=== PATIENT | female | born 1970 | race Caucasian/White ===

== ENCOUNTER 2023-08-05 12:00 | Emergency (ER) | payer BC, SELFPAY ==
[2023-08-05 12:01] VITALS: BP 116/71; PULSE 110; RESP 18; TEMP 36.4; O2SAT 98; BMI 28.0
--- NOTE | 2023-08-05 12:10 | ED.VIS.FALL ---
HPI HPI - Fall History of Present Illness Chief Complaint: Fall Detail of Chief Complaint: Fall with injury to left ribs and left arm Informant: patient Narrative Narrative: Patient presents emergency department after sustaining a fall 2 days ago. Patient states that she was coming out of door and missed a step fell onto the concrete. She landed on her left side and left arm. She denies loss of consciousness. She has been ambulatory. She denies neck pain. She is not anticoagulated. She is visiting here from [place]. [facility] Medical History (Updated 08/05/23 @ 13:[address] China Kumar, ) Sarcoidosis Home Medications escitalopram oxalate 20 mg tablet (Lexapro) 20 mg PO DAILY 01/28/13 [History Last Taken Unknown] buspirone 10 mg tablet 10 mg PO TID 07/19/13 [History Last Taken Unknown] quetiapine 300 mg tablet (Seroquel) 600 mg PO DAILY 07/19/13 [History Last Taken Unknown] docusate sodium 100 mg capsule (DOK) 100 mg PO BID ##30 10/30/13 [Rx Last Taken Unknown] hydrocodone-acetaminophen 5-325mg 5mg-325mg 1 tab PO Q4H PRN PRN Pain 3 days #15 TABLETS 08/05/23 [Rx Last Taken Unknown] Allergy/AdvReac Type Severity Reaction Status Date / Time aspirin AdvReac Other Verified 08/05/23 12:00 pseudoephedrine HCl AdvReac Other Verified 08/05/23 12:00 [From [facility]] Social History Smoking Status: Current every day smoker tobacco type: cigarettes ROS ROS ED Review of Systems ROS Unobtainable: other Constitutional Constitutional ED: Reports lethargy; Denies chills, fever(s), sweats or weight loss Eyes Eyes: Denies blurry vision, change in vision or diplopia ENT ENT ED: Denies rhinorrhea or sore throat Cardiovascular Cardiovascular: Reports chest pain; Denies orthopnea or racing heartbeat Respiratory/Chest Respiratory/Chest: Denies cough, dyspnea, dyspnea on exertion, orthopnea or sputum Gastrointestinal Gastrointestinal: Denies abdominal pain, diarrhea, nausea or vomiting Genitourinary Genitourinary ED: Denies dysuria, hematuria or urinary frequency Musculoskeletal Musculoskeletal: Reports other Details: Left arm pain ; Denies arthralgias, back pain, myalgias or neck pain Integumentary Denies abscess, Abrasions or rash Neurologic Neurologic: Denies headache(s) or weakness Psychiatric Psychiatric: Denies anxiety, depression or suicidal thoughts Endocrine Endocrinology: Denies polydipsia, polyphagia or polyuria Hematologic/Lymphatic Hematologic/Lymphatic: Denies easy bleeding, easy bruising or lymphadenopathy Allergic/Immunologic Allergic/Immunologic ED: Denies mouth swelling, tongue swelling or urticaria EXAM Physical Exam Const Vital Signs: 08/05/23 12:01 08/05/23 12:55 08/05/23 13:56 Temperature 97.6 F L 97.9 F Temperature Source Temporal Pulse Rate 110 H 78 Respiratory Rate 18 18 Respiratory Effort Normal Respiratory Depth Normal Respiratory Pattern Normal Blood Pressure 116/71 118/69 Blood Pressure Mean 86 85 Pulse Ox 98 91 95 Oxygen Delivery Method Room Air Room Air Positive well nourished and well developed General Appearance ED: well developed and NAD HEENT Reports TM's clear and moist mucous membranes normocephalic and atraumatic; Negative for trauma or tenderness Tympanic Membrane ED: Yes TM's clear Eyes PERRL and EOMs intact bilaterally General Eye ED: Negative for pale conjunctiva or scleral icterus Neck no lymphadenopathy, supple and no JVD General: Negative for tenderness Chest Wall Negative for inspection of chest normal or palpation of chest normal Chest Narrative: Evaluation of the chest wall reveals diffuse tenderness palpation over the left ribs in the mid axillary line. There is no crepitus or subcu emphysema. No ecchymosis or bruising noted. Chest: Negative for tenderness Resp normal respiratory effort and clear to auscultation bilaterally Effort and Inspection: Negative for respiratory distress or pain with movement Auscultation: Negative for rhonchi, wheezes or diminished lung sounds Cardio regular rate, regular rhythm, S1 normal heart sound, S2 normal heart sound and no murmurs Peripheral Pulses: pulses 2+ throughout GI normal to inspection, nondistended, normoactive bowel sounds, soft to palpation, non-tender, non-distended and no masses Back/Spine no CVA tenderness and no thoracic nor lumbar tenderness Extremity normal to inspection Extremity Narrative: Tenderness palpation over the left humerus does reveal diffuse tenderness. There is no obvious deformity. There is ecchymosis and bruising to the proximal portion of the left humerus. She is neurovascular intact distally. No pain at the elbow or wrist. General Extremety ED: Negative for edema General Extremity: Negative for edema Neuro oriented x3, CN's II-XII intact bilaterally, no sensory deficits noted and gait normal Sensorium / Orientation: awake, alert, oriented to person, oriented to place and oriented to time Motor Exam: strength 5/5 throughout and strength abnormal Psych mental status grossly normal Skin no rashes or lesions noted and no wounds MDM MDM MDM Narrative Medical decision making narrative: Patient presents to the emergency department with a fall with injury to her left ribs. She has tenderness over the ribs and ecchymosis and bruising over the left upper arm. She had x-rays of the left upper arm that showed no fractures. Also performed x-rays of her left ribs and chest x-ray which showed nondisplaced rib fractures of the fourth and fifth rib. There is no evidence of pneumothorax. She was medicated with morphine and Zofran. Discussed results with patient. Will write her prescription for [employer] for pain. Will give referral to primary care physician for follow-up. She is advised to return if worsening pain, increasing shortness of breath, hemoptysis, or condition should worsen anyway. Radiography Diagnostic Testing: Clinical Impression(s) from Imaging Studies Humerus X-Ray 08/05/23 12:20 IMPRESSION: Normal x-ray examination of the humerus. Electronically Signed: Elian Johnson MD at 13:13 EDT , Ribs w/Chest X-Ray 08/05/23 12:20 IMPRESSION: RIBS: Nondisplaced fracture involving the anterior lateral aspect of the left fourth and fifth ribs. CHEST: Normal x-ray examination of the chest. Electronically Signed: Elian Johnosn MD at 13:12 EDT , Three-view x-rays of left ribs and chest x-ray obtained interpreted by myself as questionable fracture of the fourth rib. Radiology felt there was nondisplaced fractures of the left fourth and fifth ribs. There is no evidence of pneumothorax. 2 view x-rays of left humerus obtained interpreted by myself as no evidence of fracture. Radiology in agreement. Discharge Plan Triage Chief Complaint: Fall ED Provider: China Kumar Dx/Rx/DC Orders Clinical Impression: Left rib fracture, Contusion of arm, left Instructions: Bone Contusion, ED Mechanical Fall, ED Rib Fracture Prescriptions: New hydrocodone-acetaminophen [hydrocodone-acetaminophen] 5-325 mg tablet 1 tab PO Q4H PRN PRN (Reason: Pain) 3 Days Qty: 15 0RF No Action escitalopram oxalate [Lexapro] 20 MG tablet 20 mg PO DAILY quetiapine [Seroquel] 300 MG tablet 600 mg PO DAILY buspirone 10 MG tablet 10 mg PO TID docusate sodium [DOK] 100 MG capsule 100 mg PO BID Qty: 30 0RF Primary Care Provider: JP PENA Referrals: JP PENA [Other] Mike Wray MD [Med Staff - Active Staff] - 5-7 Days Disposition Disposition: Home, Self Care Discharge Date/Time: 08/05/23 13:57
--- NOTE | 2023-08-05 12:20 | RAD_ITS ---
STUDY: X-RAY - UNILATERAL RIBS ( LEFT ) WITH CHEST REASON FOR EXAM: Female, 52 years old. Left rib pain following a fall. TECHNIQUE - RIBS: 5 view(s) of the ribs. TECHNIQUE - CHEST: Single PA view of the chest. COMPARISON: Comparison is made with prior chest radiograph dated November 29, 2012. FINDINGS - RIBS: There is a nondisplaced fracture along the anterior lateral aspect of the left fourth and fifth ribs. FINDINGS - CHEST: Elevation of the right hemidiaphragm. There is no demonstrated pleural abnormality. Normal size heart. Normal mediastinum and rosibel. Normal visualized pulmonary arteries. There is atherosclerotic tortuosity of the aortic arch and descending thoracic aorta. There are diffuse degenerative changes of the visualized thoracic spine. Normal visualized ribs, clavicles, and shoulders. Status post cholecystectomy. RAD/Ribs Uni Min 3V w/PA Chest IMPRESSION: RIBS: Nondisplaced fracture involving the anterior lateral aspect of the left fourth and fifth ribs. CHEST: Normal x-ray examination of the chest. Electronically Signed: Elian Johnson MD at 13:12 EDT ,
--- NOTE | 2023-08-05 12:20 | RAD_ITS ---
STUDY: X-RAY - LEFT HUMERUS REASON FOR EXAM: Female, 52 years old. Fall TECHNIQUE: 3 view(s) of the humerus. COMPARISON: None. FINDINGS: Normal visualized humerus. There is no demonstrated fracture or osseous destructive process. There is no demonstrated soft tissue abnormality. RAD/Humerus min 2 Views IMPRESSION: Normal x-ray examination of the humerus. Electronically Signed: Elian Johnson MD at 13:13 EDT ,
[2023-08-05 12:55] VITALS: O2SAT 91
[2023-08-05] MEDS: Ondansetron 4 MG/2 ML Vial IV (13:03)
[2023-08-05] MEDS: Morphine 4 MG/ML Syringe IM (13:03)
[2023-08-05 13:56] VITALS: BP 118/69; PULSE 78; RESP 18; TEMP 36.6; O2SAT 95
== END 2023-08-05 13:57 | disposition home or self-care (01) ==
PROVIDERS: Emergency Provider Emergency Medicine; Visit Provider Emergency Medicine
DX: S22.42XA Multiple fractures of ribs, left side, initial encounter for closed fracture (principal); F17.210 Nicotine dependence, cigarettes, uncomplicated; S40.022A Contusion of left upper arm, initial encounter; W10.9XXA Fall (on) (from) unspecified stairs and steps, initial encounter
CPT/HCPCS: 71101; 73060; 96372; 96374; 99282; J2405

== ENCOUNTER 2023-09-25 22:15 | Emergency (ER) | payer MEDICARE, MEDICAID, SELFPAY ==
[2023-09-25 22:20] VITALS: BP 134/84; PULSE 112; RESP 17; TEMP 36.6; O2SAT 98; BMI 25.6
== END 2023-09-26 01:02 | disposition left against medical advice (07) ==
DX: R11.0 Nausea (principal); Z53.21 Procedure and treatment not carried out due to patient leaving prior to being seen by health care provider

== ENCOUNTER 2023-11-03 23:26 | Emergency (ER) | payer MEDICARE, SELFPAY ==
[2023-11-03 23:27] VITALS: BP 112/98; PULSE 110; RESP 18; TEMP 36.6; O2SAT 96; BMI 27.9
[2023-11-04 01:27] VITALS: BP 153/64; PULSE 99; RESP 18; O2SAT 99
--- NOTE | 2023-11-04 02:33 | EX.ED.DYSGE1 ---
HPI History of Present Illness Chief Complaint: General Illness Informant: patient Onset/Context/Timing Onset: Today Context: Gradual Onset Timing: Continuous Quality: Stinging Location: Left abdomen Worsened by: Movement Relieved by: Nothing Narrative Narrative: Patient presents with left side pain that began today. Patient states he noticed it when she woke up today. Patient describes it as a stinging sensation. Patient states it is over the left side of her abdomen. Patient states it is worse with movement. Patient states nothing seems to help with it. Patient admits to some subjective chills but denies any fevers. Patient admits to a mild cough. Patient also admits to a headache. Patient denies any discharge or drainage from the area. Patient noted some redness to the left side of her abdomen. Patient states the redness is getting bigger. [facility] Medical History (Updated 11/04/23 @ 03:[address] Joe Davidson DO) Hypertension Neuropathy Diabetes Sarcoidosis Home Medications ?Medication ?Instructions ?Recorded ?Last Taken ?Type escitalopram oxalate 20 mg tablet 20 mg PO DAILY 01/28/13 Unknown History (Lexapro) buspirone 10 mg tablet 10 mg PO TID 07/19/13 Unknown History quetiapine 300 mg tablet (Seroquel) 600 mg PO DAILY 07/19/13 Unknown History docusate sodium 100 mg capsule 100 mg PO BID ##30 10/30/13 Unknown Rx (DOK) hydrocodone-acetaminophen 5-325mg 1 tab PO Q4H PRN PRN Pain 3 days 08/05/23 Unknown Rx 5mg-325mg #15 TABLETS cephalexin 500 mg capsule 500 mg PO Q6 #40 CAPSULES 11/04/23 Unknown Rx Allergy/AdvReac Type Severity Reaction Status Date / Time aspirin AdvReac Other Verified 11/03/23 23:30 hydromorphone (From Dilaudid) AdvReac Other Verified 11/03/23 23:30 pseudoephedrine HCl (From AdvReac Other Verified 11/03/23 23:30 Sudafed) Surgical History (Updated 11/04/23 @ 02:[address] Joe Davidson DO) Hx of brain surgery Hx of appendectomy Hx of section Hx of total adrenalectomy Social History Smoking Status: Current every day smoker tobacco type: cigarettes ROS ROS ED Constitutional Constitutional ED: Reports chills; Denies fever(s) Eyes Eyes: Denies blurry vision or change in vision ENT ENT ED: Denies rhinorrhea or sore throat Cardiovascular Cardiovascular: Denies chest pain or palpitations Respiratory/Chest Respiratory/Chest: Reports cough; Denies dyspnea Gastrointestinal Gastrointestinal: Denies nausea or vomiting Genitourinary Genitourinary ED: Denies dysuria or hematuria Musculoskeletal Musculoskeletal: Denies back pain or neck pain Integumentary Reports rash; Denies abscess Neurologic Neurologic: Reports headache(s); Denies weakness Allergic/Immunologic Allergic/Immunologic ED: Denies mouth swelling or urticaria EXAM Physical Exam Const Vital Signs: 11/03/23 23:27 11/04/23 00:47 11/04/23 01:27 Temperature 97.9 F Temperature Source Temporal Pulse Rate 110 H 99 Respiratory Rate 18 18 Respiratory Effort Normal Blood Pressure 112/98 H 153/64 H Blood Pressure Mean 102 93 Pulse Ox 96 99 Oxygen Delivery Method Room Air Room Air 11/04/23 03:00 Temperature Temperature Source Pulse Rate 98 Respiratory Rate 21 H Respiratory Effort Blood Pressure 185/62 H Blood Pressure Mean 103 Pulse Ox 92 Oxygen Delivery Method Room Air Positive well nourished and well developed General Appearance ED: well developed and NAD HEENT Reports moist mucous membranes Neck supple and no JVD Resp normal respiratory effort and clear to auscultation bilaterally Cardio regular rate and regular rhythm GI non-distended GI Narrative: There is tenderness, erythema, and mild warmth over the left mid abdomen. There is some induration noted. There is no fluctuance. There is no evidence of any abscess. There is no discharge or drainage noted. Palpation: soft Extremity normal to inspection General Extremety ED: Negative for edema General Extremity: Negative for edema Neuro oriented x3, CN's II-XII intact bilaterally and no sensory deficits noted Sensorium / Orientation: alert Motor Exam: strength 5/5 throughout Psych mental status grossly normal Skin Skin Narrative: There is a superficial abrasion over the left mid abdomen near the area of erythema. There is no fluctuance. There are no pustules noted. There is no bleeding or drainage. MDM MDM MDM Narrative Medical decision making narrative: Patient was advised that this appears to be cellulitis. I do not feel any fluctuance consistent with an abscess that needs to be opened and drained at this time. CBC will be obtained to assess for leukocytosis and anemia. Basic metabolic profile will be obtained to assess for electrolyte abnormality and renal function. Lab Data Attestation: I reviewed the patient's lab results. Lab results narrative: CBC was reviewed. Hemoglobin was slightly elevated at 15.9 and hematocrit was 47.5. The remainder is within normal limits. Basic metabolic profile was reviewed. Glucose was mildly elevated at 313. Potassium was slightly low at 3.2. The remainder was essentially within normal limits. Labs: Laboratory Results - last 24 hr 11/04/23 02:50 WBC 9.1 RBC 5.35 Hgb 15.9 H Hct 47.5 H MCV 88.8 MCH 29.7 MCHC 33.5 RDW Std Deviation 42.2 RDW Coeff of Cele 13.1 Plt Count 207 MPV 10.9 Immature Gran % (Auto) 0.800 Neut % (Auto) 73.4 H Lymph % (Auto) 14.0 L [place] % (Auto) 10.9 H Eos % (Auto) 0.5 Baso % (Auto) 0.4 Absolute Neuts (auto) 6.7 Absolute Lymphs (auto) 1.28 Nucleated RBC % 0 Treatment and Re-Evaluation :: Patient was given a dose of Ancef here. Patient was advised of her findings. Patient was given a prescription for Keflex. Patient was instructed to use Tylenol or ibuprofen as needed for pain. Patient was instructed to follow-up with her primary care physician in 5 to 7 days. Patient understood and was agreeable with plan. All questions were answered. Discharge Plan Triage Chief Complaint: General Illness ED Provider: Joe Davidson Dx/Rx/DC Orders Clinical Impression: Cellulitis, Type II diabetes mellitus, Tobacco dependence syndrome Instructions: ED Cellulitis Prescriptions: New cephalexin 500 mg capsule 500 mg PO Q6 Qty: 40 0RF No Action escitalopram oxalate [Lexapro] 20 MG tablet 20 mg PO DAILY quetiapine [Seroquel] 300 MG tablet 600 mg PO DAILY buspirone 10 MG tablet 10 mg PO TID docusate sodium [DOK] 100 MG capsule 100 mg PO BID Qty: 30 0RF hydrocodone-acetaminophen [hydrocodone-acetaminophen] 5-325 mg tablet 1 tab PO Q4H PRN PRN (Reason: Pain) 3 Days Qty: 15 0RF Primary Care Provider: [facility] Doctor,Out of Referrals: [facility] Doctor,Out of [Primary Care Provider] - 3-5 Days Print Language: Polish Disposition Disposition: Home, Self Care
[2023-11-04] MEDS: Ketorolac 30 MG/ML Syringe IV (02:51)
[2023-11-04 03:00] VITALS: BP 185/62; PULSE 98; RESP 21; O2SAT 92
[2023-11-04 03:07] LABS: Absolute Lymphocyte Count 1.28 X10^3/uL (0.83-4.51); Absolute Neutrophil Count 6.7 X10^3/uL (2.0-7.7); Basophil# 0.04 X10^3/uL; Basophil% 0.4 % (0-1); Eosinophil# 0.05 X10^3/uL; Eosinophils% 0.5 % (0-5); Hematocrit 47.5 % (37-47); Hemoglobin 15.9 g/dL (12.0-15.0); Lymphocyte # 1.28 X10^3/ul (0.83-4.51); Mean Corp Hgb Conc 33.5 g/dL (32-36); Mean Corpuscular Hgb 29.7 pg (27.0-32.0); Mean Corpuscular Volume 88.8 fL (81-99); Mean Platelet Vol. 10.9 fl (6.2-12.0); Monocyte% 10.9 % (0-10); NRBC Flagged by Analyzer 0 % (0-5); Neutrophil % 73.4 % (47-70); Platelet Count 207 K/mm3 (150-450); RBC Distribution Width CV 13.1 % (11.6-14.6); RBC Distribution Width SD 42.2 fl (35.1-43.9); Red Blood Count 5.35 M/mm3 (4.2-5.4); White Blood Count 9.1 K/mm3 (4.4-11.0)
[2023-11-04] MEDS: Cefazolin 1 GM/50 ML BAG IV (03:10)
[2023-11-04 03:56] LABS: Anion Gap 8 (5-15); BUN 7 mg/dL (7-18); BUN/Creat Ratio 16.4 RATIO (10-20); Chloride 101 mmol/L (98-107); Creatinine, Serum 0.43 mg/dL (0.55-1.02); EST Glomerular Filtration Rate 165 mL/min (>60); Est Glom Filt Rate - Afr Amer 199 mL/min (>60); Estimated Creatinine Clearance 154.52 ml/min; Glucose 313 mg/dL (74-106); Potassium 3.2 mmol/L (3.5-5.1); Sodium Level 137 mmol/L (136-145)
[2023-11-04 04:04] VITALS: BP 109/54; PULSE 98; RESP 18; TEMP 36.3; O2SAT 98
== END 2023-11-04 04:06 | disposition home or self-care (01) ==
PROVIDERS: Emergency Provider Emergency Medicine; Visit Provider Emergency Medicine
DX: L03.311 Cellulitis of abdominal wall (principal); E11.40 Type 2 diabetes mellitus with diabetic neuropathy, unspecified; I10 Essential (primary) hypertension; R51.9 Headache, unspecified; F17.210 Nicotine dependence, cigarettes, uncomplicated
CPT/HCPCS: 80048; 85025; 96365; 96375; 99285; J7050; A4216

== ENCOUNTER 2023-11-11 07:05 | Inpatient (IN) | payer MEDICARE, MEDICAID, SELFPAY ==
[2023-11-11] VITALS (10 sets, daily range): BP systolic 100–140; BP diastolic 41–83; PULSE 70–107; RESP 14–18; TEMP 36.6–38.3; O2SAT 93–98; BMI 24.0
--- NOTE | 2023-11-11 07:19 | EDS_ITS ---
HPI History of Present Illness Chief Complaint: Abscess Narrative Narrative: Patient is a 53-year-old female with a past medical history of hypertension, diabetes, sarcoidosis, neuropathy who presented to the emergency department with a chief complaint of concern for left-sided abscess. Patient states that she was here approximately 2 to 3 weeks ago now for this and states that she took an antibiotic however notes that things or not improving she states that she is having increasing pain and notes that the last time this happened for her she had to go to the operating room for surgery. Patient states that she has been having chills but denies any fevers. She rates her pain an 8 out of 10 here on exam today. [facility] Medical History Hypertension Neuropathy Diabetes Sarcoidosis Home Medications ?Medication ?Instructions ?Recorded ?Last Taken ?Type buspirone 10 mg tablet 10 mg PO TID 07/19/13 Unknown History cephalexin 500 mg capsule 500 mg PO Q6 #40 CAPSULES 11/04/23 11/10/23 Rx Allergy/AdvReac Type Severity Reaction Status Date / Time aspirin AdvReac Other Verified 11/11/23 07:14 hydromorphone (From Dilaudid) AdvReac Other Verified 11/11/23 07:14 pseudoephedrine HCl (From AdvReac Other Verified 11/11/23 07:14 Sudafed) Surgical History Hx of brain surgery Hx of appendectomy Hx of section Hx of total adrenalectomy Social History Smoking Status: Current every day smoker tobacco type: cigarettes ROS ROS ED ROS Narrative Constitutional: Complains of chills as noted above denies fevers, headaches, lightheadedness, dizziness Cardiovascular: Denies chest pain or palpitations Respiratory: Denies cough wheezing shortness of breath Abdomen: Complains of abdominal discomfort and concern for left-sided abscess as noted above complains of diarrhea and nausea denies vomiting : Denies any pain drainage, hematuria, polyuria Neurological: Denies any new numbness, weakness, tingling Skin: Complains of concern for abscess as noted above EXAM Physical Exam Narrative Exam Narrative: General: Patient was lying in bed did appear to be uncomfortable secondary to her left-sided pain Head: Atraumatic, normocephalic Eyes: Pupils equal round reactive to light bilaterally, extraocular muscles intact bilaterally, no conjunctival injection noted Neck: Soft, supple, trachea midline Cardiovascular: Patient was tachycardic with a regular rhythm no murmurs gallops rubs noted Respiratory: Clear to auscultation bilaterally Abdomen: Diffuse tenderness to palpation no rebound or guarding on exam Extremities: +5/5 strength noted in the bilateral upper and lower extremities, no pedal edema on exam Neurological: Patient following commands knew that she is at [facility] the year is 2023 Skin: Warm, dry, patient does have a left-sided area of redness with some induration noted. The wound does appear to be open and draining somewhat at this point in time. Area is tender to palpation and warm to the touch Const Vital Signs: 11/11/23 07:07 11/11/23 07:09 11/11/23 07:19 Temperature 97.8 F 97.8 F Temperature Source Temporal Temporal Pulse Rate 107 H 107 H Respiratory Rate 16 16 Blood Pressure 133/82 H 133/82 H Blood Pressure Mean 99 99 Pulse Ox 98 98 97 Oxygen Delivery Method Room Air Room Air Room Air 11/11/23 08:09 11/11/23 09:00 11/11/23 10:00 Temperature 97.9 F 97.8 F 97.9 F Temperature Source Temporal Temporal Temporal Pulse Rate 95 92 84 Respiratory Rate 14 16 18 Blood Pressure 140/70 H 138/80 H 127/83 H Blood Pressure Mean 93 99 97 Pulse Ox 96 94 93 Oxygen Delivery Method Room Air Room Air Room Air 11/11/23 10:05 Temperature 97.9 F Temperature Source Pulse Rate 82 Respiratory Rate 17 Blood Pressure 127/83 H Blood Pressure Mean 97 Pulse Ox 95 Oxygen Delivery Method MDM MDM MDM Narrative Medical decision making narrative: Patient is a 53-year-old female who presented to the emerged part with chief complaint of left-sided pain as well as concern for abscess in this region. Once again the patient was on antibiotics and with chart review was noted that she was on Keflex. Patient will have workup performed here on the differential includes but not limited to cellulitis, abscess, intra-abdominal abscess. Once workup is obtained reviewed she will be reevaluated. Patient given IV fluids, morphine and Zofran. Patient CBC reviewed and no evidence of leukocytosis white blood count was noted to be normal at 7.1, hemoglobin stable 15.6, platelet count normal at 219. Patient's sodium was only 133, potassium was low at 3.2 she will be given 40 mill equivalents of potassium replacement here in the emergency department, creatinine normal 0.74. Patient's glucose was hyperglycemic at 652 and she had a lactic acidosis of 2.5. Patient AST and ALT were 35 and 50 respectively. Patient has a normal anion gap of 6. Patient urinalysis did reveal evidence of a urinary tract infection with 500 leukocyte Estrace greater than 100 white blood cells seen and 1+ bacteria she was given a gram of Rocephin. Patient CT abdomen pelvis was reviewed as well which showed soft tissue swelling with skin thickening in the subcutaneous tissues overlying the left lateral mid and lower abdominal wall with evidence of phlegmon without drainable fluid collection status postcholecystectomy and hysterectomy. Patient was given vancomycin for her cellulitis. Patient's EKG reviewed as well which showed sinus rhythm rate of 91 bpm. Patient troponin was normal at 5. At this point in time do believe the patient warrants admission secondary to her uncontrolled diabetes with her hyperglycemia with a significant cellulitis and intractable pain as well as a lactic acidosis and urinary tract infection. Patient's case was discussed with hospitalist Dr. Talamantes who will accept patient for admission. Patient notified that should be admitted to the hospital with all question concerns answered. Lab Data Labs: Laboratory Results - last 24 hr 11/11/23 11/11/23 07:40 08:20 WBC 7.1 RBC 5.23 Hgb 15.6 H Hct 46.1 MCV 88.1 MCH 29.8 MCHC 33.8 RDW Std Deviation 41.9 RDW Coeff of Cele 12.9 Plt Count 219 MPV 10.3 Immature Gran % (Auto) 1.600 H Neut % (Auto) 66.6 Lymph % (Auto) 18.4 L [place] % (Auto) 12.0 H Eos % (Auto) 0.8 Baso % (Auto) 0.6 Absolute Neuts (auto) 4.7 Absolute Lymphs (auto) 1.30 Nucleated RBC % 0 PT 12.9 INR 1.0 APTT 30.3 Sodium 133 L Potassium 3.2 L Chloride 99 Carbon Dioxide 28.0 Anion Gap 6 BUN 4 L Creatinine 0.74 Estim Creat Clear Calc 79.11 Est GFR (MDRD) Af Amer 106 Est GFR (MDRD) Non-Af 87 BUN/Creatinine Ratio 5.4 L Glucose 652 H* Lactic Acid 2.5 H* Calcium 9.0 Total Bilirubin 1.10 H AST 35 ALT 50 Alkaline Phosphatase 130 H Troponin I High Sens 5 Total Protein 6.6 Albumin 3.1 L Globulin 3.5 Albumin/Globulin Ratio 0.9 Urine Color Yellow Urine Clarity Sl. Cloudy Urine pH 6.0 Ur Specific [place] 1.010 Urine Protein Negative Urine Glucose (UA) 1000 H Urine Ketones 5 H Urine Occult Blood 10 H Urine Nitrite Positive H Urine Bilirubin Negative Urine Urobilinogen 1 H Ur Leukocyte Esterase 500 H Urine RBC 0 SEEN Urine WBC >100 SEEN Ur Squamous Epith Cells 0-5 SEEN Urine Bacteria 1+ Urine Mucus 0 SEEN Radiography Diagnostic Testing: Clinical Impression(s) from Imaging Studies Abdomen/Pelvis CT 11/11/23 08:52 IMPRESSION: Soft tissue swelling with skin thickening in the subcutaneous tissues overlying the left lateral mid and lower abdominal wall with evidence of a phlegmon without drainable fluid collection. Status post cholecystectomy and hysterectomy. Electronically Signed: Elian Johnson MD at 9:42 EDT , Chest X-Ray 11/11/23 09:00 IMPRESSION: Stable examination. No acute abnormality is seen. Electronically Signed: Elian Johnson MD at 9:58 EDT , Discharge Plan Triage Chief Complaint: Abscess ED Provider: Yonas Mccullough Dx/Rx/DC Orders Prescriptions: No Action buspirone 10 MG tablet 10 mg PO TID cephalexin 500 mg capsule 500 mg PO Q6 Qty: 40 0RF Primary Care Provider: JP PENA Referrals: JP PENA [Other] Print Language: Albanian
--- NOTE | 2023-11-11 07:19 | EKG12_ITS ---
Test Reason : GENERAL Blood Pressure : / mmHG Vent. Rate : 091 BPM Atrial Rate : 091 BPM P-R Int : 150 ms QRS Dur : 082 ms QT Int : 386 ms P-R-T Axes : 027 -04 194 degrees QTc Int : 474 ms Normal sinus rhythm Inferior infarct (cited on or before 07-DEC-2012) T wave abnormality, consider anterolateral ischemia Abnormal ECG Confirmed by HILARY BAUMANN, STEPHANIE ([id number]), photographic editor MANDEEP WOODY ([id number]) on 11/15/2023 9:51:55 AM Referred By: Confirmed By:DANIELE RICHARD MD
--- NOTE | 2023-11-11 07:19 | EX.ED.DYSGE1 ---
HPI History of Present Illness Chief Complaint: Abscess Narrative Narrative: Patient is a 53-year-old female with a past medical history of hypertension, diabetes, sarcoidosis, neuropathy who presented to the emergency department with a chief complaint of concern for left-sided abscess. Patient states that she was here approximately 2 to 3 weeks ago now for this and states that she took an antibiotic however notes that things or not improving she states that she is having increasing pain and notes that the last time this happened for her she had to go to the operating room for surgery. Patient states that she has been having chills but denies any fevers. She rates her pain an 8 out of 10 here on exam today. [facility] Medical History Hypertension Neuropathy Diabetes Sarcoidosis Home Medications ?Medication ?Instructions ?Recorded ?Last Taken ?Type escitalopram oxalate 20 mg tablet 20 mg PO DAILY 01/28/13 Unknown History (Lexapro) buspirone 10 mg tablet 10 mg PO TID 07/19/13 Unknown History quetiapine 300 mg tablet (Seroquel) 600 mg PO DAILY 07/19/13 Unknown History docusate sodium 100 mg capsule 100 mg PO BID ##30 10/30/13 Unknown Rx (DOK) hydrocodone-acetaminophen 5-325mg 1 tab PO Q4H PRN PRN Pain 3 days 08/05/23 Unknown Rx 5mg-325mg #15 TABLETS cephalexin 500 mg capsule 500 mg PO Q6 #40 CAPSULES 11/04/23 Unknown Rx Allergy/AdvReac Type Severity Reaction Status Date / Time aspirin AdvReac Other Verified 11/11/23 07:14 hydromorphone (From Dilaudid) AdvReac Other Verified 11/11/23 07:14 pseudoephedrine HCl (From AdvReac Other Verified 11/11/23 07:14 Sudafed) Surgical History (Updated 11/04/23 @ 02:[address] Joe Davidson DO) Hx of brain surgery Hx of appendectomy Hx of section Hx of total adrenalectomy Social History Smoking Status: Current every day smoker tobacco type: cigarettes ROS ROS ED ROS Narrative Constitutional: Complains of chills as noted above denies fevers, headaches, lightheadedness, dizziness Cardiovascular: Denies chest pain or palpitations Respiratory: Denies cough wheezing shortness of breath Abdomen: Complains of abdominal discomfort and concern for left-sided abscess as noted above complains of diarrhea and nausea denies vomiting : Denies any pain drainage, hematuria, polyuria Neurological: Denies any new numbness, weakness, tingling Skin: Complains of concern for abscess as noted above EXAM Physical Exam Narrative Exam Narrative: General: Patient was lying in bed did appear to be uncomfortable secondary to her left-sided pain Head: Atraumatic, normocephalic Eyes: Pupils equal round reactive to light bilaterally, extraocular muscles intact bilaterally, no conjunctival injection noted Neck: Soft, supple, trachea midline Cardiovascular: Patient was tachycardic with a regular rhythm no murmurs gallops rubs noted Respiratory: Clear to auscultation bilaterally Abdomen: Diffuse tenderness to palpation no rebound or guarding on exam Extremities: +5/5 strength noted in the bilateral upper and lower extremities, no pedal edema on exam Neurological: Patient following commands knew that she is at [facility] the year is 2023 Skin: Warm, dry, patient does have a left-sided area of redness with some induration noted. The wound does appear to be open and draining somewhat at this point in time. Area is tender to palpation and warm to the touch Const Vital Signs: 11/11/23 07:07 11/11/23 07:09 Temperature 97.8 F 97.8 F Temperature Source Temporal Temporal Pulse Rate 107 H 107 H Respiratory Rate 16 16 Blood Pressure 133/82 H 133/82 H Blood Pressure Mean 99 99 Pulse Ox 98 98 Oxygen Delivery Method Room Air Room Air MDM MDM MDM Narrative Medical decision making narrative: Patient is a 53-year-old female who presented to the emerged part with chief complaint of left-sided pain as well as concern for abscess in this region. Once again the patient was on antibiotics and with chart review was noted that she was on Keflex. Patient will have workup performed here on the differential includes but not limited to cellulitis, abscess, intra-abdominal abscess. Once workup is obtained reviewed she will be reevaluated. Patient given IV fluids, morphine and Zofran. Discharge Plan Triage Chief Complaint: Abscess ED Provider: Yonas Mccullough Dx/Rx/DC Orders Prescriptions: No Action escitalopram oxalate [Lexapro] 20 MG tablet 20 mg PO DAILY quetiapine [Seroquel] 300 MG tablet 600 mg PO DAILY buspirone 10 MG tablet 10 mg PO TID docusate sodium [DOK] 100 MG capsule 100 mg PO BID Qty: 30 0RF hydrocodone-acetaminophen [hydrocodone-acetaminophen] 5-325 mg tablet 1 tab PO Q4H PRN PRN (Reason: Pain) 3 Days Qty: 15 0RF cephalexin 500 mg capsule 500 mg PO Q6 Qty: 40 0RF Primary Care Provider: JP PENA Referrals: JP PENA [Other] Print Language: Swedish
[2023-11-11] MEDS: Ondansetron 4 MG/2 ML Vial IV ×2 (07:37→12:02)
[2023-11-11] MEDS: 0.9% Normal Saline (1000mL) 1,000 ML 999 ML IV (07:37)
[2023-11-11] MEDS: Morphine 4 MG/ML Syringe IV ×2 (07:37→08:45)
[2023-11-11 07:51] LABS: Absolute Neutrophil Count 4.7 X10^3/uL (2.0-7.7); Basophil# 0.04 X10^3/uL; Basophil% 0.6 % (0-1); Eosinophil# 0.06 X10^3/uL; Eosinophils% 0.8 % (0-5); Hematocrit 46.1 % (37-47); Hemoglobin 15.6 g/dL (12.0-15.0); Lymphocyte % 18.4 % (19-41); Mean Corp Hgb Conc 33.8 g/dL (32-36); Mean Corpuscular Hgb 29.8 pg (27.0-32.0); Mean Corpuscular Volume 88.1 fL (81-99); Mean Platelet Vol. 10.3 fl (6.2-12.0); Monocyte# 0.85 X10^3/uL; NRBC Flagged by Analyzer 0 % (0-5); Neutrophil # 4.71 X10^3/uL (2.7-7.7); Neutrophil % 66.6 % (47-70); Platelet Count 219 K/mm3 (150-450); RBC Distribution Width CV 12.9 % (11.6-14.6); RBC Distribution Width SD 41.9 fl (35.1-43.9); Red Blood Count 5.23 M/mm3 (4.2-5.4); White Blood Count 7.1 K/mm3 (4.4-11.0)
[2023-11-11 07:59] LABS: Prothrombin Time (Protime)PT. 12.9 SECONDS (11.7-14.9)
[2023-11-11 08:00] LABS: Partial Thromboplast Time 30.3 Seconds (24.1-36.2)
[2023-11-11 08:12] LABS: ALB/GLOB Ratio 0.9 RATIO (0.9-2.4); AST(SGOT) 35 U/L (15-37); Alanine Aminotransfer ALT/SGPT 50 U/L (13-56); Albumin, Serum 3.1 g/dL (3.2-5.0); Alkaline Phosphatase 130 U/L (45-117); Anion Gap 6 (5-15); BUN 4 mg/dL (7-18); BUN/Creat Ratio 5.4 RATIO (10-20); Chloride 99 mmol/L (98-107); Creatinine, Serum 0.74 mg/dL (0.55-1.02); EST Glomerular Filtration Rate 87 mL/min (>60); Est Glom Filt Rate - Afr Amer 106 mL/min (>60); Estimated Creatinine Clearance 79.11 ml/min; Globulin 3.5 g/dL (2.2-4.2); Glucose 652 mg/dL (74-106); Potassium 3.2 mmol/L (3.5-5.1); Protein, Total 6.6 g/dL (6.4-8.2); Sodium Level 133 mmol/L (136-145)
[2023-11-11 08:25] LABS: Troponin-I HS 5 pg/mL (3.0-54.0)
[2023-11-11 08:27] LABS: Lactic Acid 2.5 mmol/L (0.4-1.9)
[2023-11-11 08:32] LABS: Mucous, Urine 0 SEEN /hpf (<or=2+); Red Blood Cells-Urine 0 SEEN /hpf (0-5)
[2023-11-11 08:34] LABS: Color, Urine Yellow (Yellow); Glucose, Dipstick 1000 mg/dl (Normal); Ketone-Dipstick 5 mg/dl (Negative); Leukocyte Esterase-Dipstick 500 /ul (Negative); Nitrite-Dipstick Positive (Negative); Occult Blood-Urine 10 /ul (Negative); Protein-Dipstick Negative (Negative); Urine Bilirubin Dipstick Negative (Negative); Urine Clarity Sl. Cloudy (Clear); Urine Urobilinogen 1 mg/dl (Normal)
[2023-11-11] MEDS: Insulin Lispro 100 UNIT/ML INSULN.PEN 10 UNIT SC (08:38)
[2023-11-11 08:45] LABS: White Blood Cells >100 SEEN /hpf (0-5)
[2023-11-11 08:46] LABS: Bacteria 1+ /hpf (None Seen); Squamous Epithelial Cells - UA 0-5 SEEN /hpf (5-10)
--- NOTE | 2023-11-11 08:52 | CT_ITS ---
STUDY: CT ABDOMEN AND PELVIS WITH CONTRAST REASON FOR EXAM: Female, 53 years old. left side/flank skin abscess RADIATION DOSAGE (If Supplied By Facility): CTDIvol = ( 12.20 ) mGy, DLP = ( 831.32 ) mGycm TECHNIQUE: Transaxial images were obtained from the dome of the diaphragm to the symphysis pubis without oral contrast. IV 100mL Isovue-300 was administered. Sagittal and coronal images were reconstructed. Individualized dose optimization techniques were used for this CT. COMPARISON: Comparison is made with prior study November 14, 2012. FINDINGS: Minimal degree of increased markings at the lung bases suggestive of atelectasis more prominent on the left side. Coronary artery calcification. Normal liver. There are surgical clips in the gallbladder fossa consistent with a prior cholecystectomy. Normal spleen. Normal pancreas. Normal bilateral adrenal glands. Surgical clips are seen in the region of the right adrenal gland. There is a 1.5 cm cyst in the anterior midportion of the right kidney. Normal left kidney. Normal visualized stomach. Normal small intestine. Normal colon. There is non-visualization of the appendix. Normal abdominal aorta. Normal inferior vena cava. Normal retroperitoneum. Normal urinary bladder. There is absence of the uterus consistent with a prior hysterectomy. Increased markings are seen in the subcutaneous tissues overlying the left lateral mid and lower abdominal wall with overlying skin thickening. No magdalene abscess is seen. A phlegmon is seen within the subcutaneous tissues just deep to the skin surface. This corresponds to the clinical area. There is a small umbilical hernia containing fat. Stable diastases of the rectus abdominous muscles more prominent inferiorly. This space narrowing at the L4-L5 level with a spondylosis. CT/Abdomen/Pelvis W IV Cont ONLY IMPRESSION: Soft tissue swelling with skin thickening in the subcutaneous tissues overlying the left lateral mid and lower abdominal wall with evidence of a phlegmon without drainable fluid collection. Status post cholecystectomy and hysterectomy. Electronically Signed: Elian Johnson MD at 9:42 EDT ,
--- NOTE | 2023-11-11 09:00 | RAD_ITS ---
STUDY: X-RAY CHEST REASON FOR EXAM: Female, 53 years old. Cough TECHNIQUE: Single AP portable view of the chest. COMPARISON: Comparison is made with prior study August 05, 2023. FINDINGS: EKG electrodes are seen. Scattered calcified granulomas. Stable elevation of the right hemidiaphragm. There is no demonstrated pleural abnormality. Normal size heart. Normal mediastinum and rosibel. Normal visualized pulmonary arteries. Normal visualized aortic arch and descending thoracic aorta. Normal visualized thoracic spine. Normal visualized ribs, clavicles, and shoulders. There is no demonstrated abnormality of the visualized soft tissue structures of the upper abdomen. RAD/Chest 1 View (Portable) IMPRESSION: Stable examination. No acute abnormality is seen. Electronically Signed: Elian Johnson MD at 9:58 EDT ,
[2023-11-11] MEDS: Ceftriaxone 1 GM/50 ML BAG IV (09:48)
[2023-11-11] MEDS: Vancomycin HCl 1,750 MG in 0.9% Normal Saline (500mL Bag) 500 ML 250 MG IV (10:18)
[2023-11-11] MEDS: Potassium Chloride Oral Tablet 20 MEQ 60 MEQ PO (10:39)
[2023-11-11] MEDS: oxyCODONE 5 MG Tablet 15 MG PO (10:42)
[2023-11-11] MEDS: 0.9% Normal Saline (1000mL) 1,000 ML 100 ML IV ×2 (11:40→22:38)
[2023-11-11 11:46] LABS: Reflex Lactate? Y
[2023-11-11] MEDS: Insulin Lispro 100 UNIT/ML INSULN.PEN 15 UNIT SC (11:53)
[2023-11-11] MEDS: Insulin Lispro 100 UNIT/ML INSULN.PEN SC ×2 (11:54→22:34)
[2023-11-11] MEDS: Insulin Glargine-YFGN 100 UNIT/ML Pen 20 UNIT SC ×2 (11:55→22:34)
[2023-11-11 12:15] LABS: Bedside Glucose 266 mg/dL (74-106)
[2023-11-11] MEDS: Ampicillin/Sulbactam 3 GM in 0.9% Normal Saline (100mL MB+) 100 ML IV ×2 (12:36→17:21)
--- NOTE | 2023-11-11 12:53 | PCM.HP.STD ---
HPI - General General Date of Admission: 11/11/23 Date of Service: 11/11/23 Chief Complaint: Abdominal wall redness with tenderness HPI Narrative ANA CRISTINA THOMAS, is a 53 F who presents to the emergency room at [facility] with complaints of redness and tenderness over her left lateral mid abdominal area, patient denies any fevers or chills, she was seen in the emergency room approximately a week ago and was diagnosed as having cellulitis and was given Keflex to take as an outpatient. Despite taking the Keflex, this area has enlarged and still is causing tenderness and is red. Patient has a history of type 2 diabetes, she is noncompliant with taking medications-she states she has a doctor in [place] and she is here in [place] staying with her cousin. Workup in the emergency room included a CBC which was unremarkable, patient's chemistry profile was remarkable for potassium of 3.2, sodium of 133, and a glucose of 652. Patient's lactic acid was 2.5, bilirubin was 1.1. Alkaline phosphatase was elevated at 130. Patient's UA indicated a UTI, patient's CT scan of the abdominal wall did not show any evidence of abscess but there was a phlegmon noted. Patient told this examiner that she has not taken any insulin for a month and a half, she did not give a reason why she did not continue her medications. Patient denies being on any psych medications. Patient will be placed in observation status on MedSurg 3, she will be given IV Unasyn and reevaluated tomorrow. She will receive oral oxycodone for abdominal pain and IV Toradol as needed. Her blood sugars will be monitored and she will be placed on basal insulin as well as insulin with each meal. [facility] Medical History Hypertension Neuropathy Diabetes Sarcoidosis Home Medications ?Medication ?Instructions ?Recorded ?Last Taken ?Type buspirone 10 mg tablet 10 mg PO TID 07/19/13 Unknown History cephalexin 500 mg capsule 500 mg PO Q6 #40 CAPSULES 11/04/23 11/10/23 Rx Allergy/AdvReac Type Severity Reaction Status Date / Time aspirin AdvReac Other Verified 11/11/23 07:14 hydromorphone (From Dilaudid) AdvReac Other Verified 11/11/23 07:14 pseudoephedrine HCl (From AdvReac Other Verified 11/11/23 07:14 Sudafed) Surgical History Hx of brain surgery Hx of appendectomy Hx of section Hx of total adrenalectomy Social History Smoking Status: Current every day smoker tobacco type: cigarettes ROS Review of Systems ROS Unobtainable: other Details: Patient complains of redness, swelling, and tenderness over the left mid lateral abdomen Constitutional Constitutional: Denies anorexia, change in weight, chills, fatigue, fever(s), night sweats or weakness Eyes Eyes: Denies blurry vision, change in vision, discharge from eye(s) or eye pain Cardiovascular Cardiovascular: Denies chest pain, claudication, dyspnea on exertion, edema or palpitations Respiratory/Chest Respiratory/Chest: Denies cough, hemoptysis, shortness of breath at rest or shortness of breath with exertion Gastrointestinal Gastrointestinal: Denies abdominal pain, constipation, diarrhea, hematemesis, hematochezia, melena, nausea or vomiting Genitourinary Genitourinary: Denies dysuria, hematuria, urinary frequency, urinary hesitancy, urinary incontinence or urinary urgency Musculoskeletal Musculoskeletal: Denies back pain, joint pain, joint stiffness, joint swelling, myalgias or neck pain Neurologic Neurologic: Denies abnormal gait, abnormal speech, dizziness, focal weakness, headache(s), loss of vision, numbness, other visual disturbances, paresthesias, syncope or tingling Psychiatric Psychiatric: Denies anxiety, cognitive impairment, depression, irritability, mood swings or suicidal ideation Endocrine Endocrinology: Denies change in body appearance, cold intolerance, excessive sweating, heat intolerance, polydipsia or polyuria Hematologic/Lymphatic Hematologic/Lymphatic: Denies none, anemia, easy bleeding, easy bruising or lymphadenopathy Allergic/Immunologic Allergic/Immunologic: Denies rhinitis, urticaria, eczemia or asthma Vital Signs Vital Signs Vital Signs: 11/11/23 07:07 11/11/23 07:09 11/11/23 07:19 Temperature 97.8 F 97.8 F Temperature Source Temporal Temporal Pulse Rate 107 H 107 H Respiratory Rate 16 16 Blood Pressure 133/82 H 133/82 H Blood Pressure Mean 99 99 Blood Pressure Source Blood Pressure Position Blood Pressure Location Pulse Ox 98 98 97 Oxygen Delivery Method Room Air Room Air Room Air 11/11/23 08:09 11/11/23 09:00 11/11/23 10:00 Temperature 97.9 F 97.8 F 97.9 F Temperature Source Temporal Temporal Temporal Pulse Rate 95 92 84 Respiratory Rate 14 16 18 Blood Pressure 140/70 H 138/80 H 127/83 H Blood Pressure Mean 93 99 97 Blood Pressure Source Blood Pressure Position Blood Pressure Location Pulse Ox 96 94 93 Oxygen Delivery Method Room Air Room Air Room Air 11/11/23 10:05 11/11/23 11:19 Temperature 97.9 F 97.8 F Temperature Source Oral Pulse Rate 82 70 Respiratory Rate 17 18 Blood Pressure 127/83 H 120/60 Blood Pressure Mean 97 80 Blood Pressure Source Monitor Blood Pressure Position Semi-Fowlers Blood Pressure Location Right Arm Pulse Ox 95 98 Oxygen Delivery Method Room Air Weight Weight: 65.621 kg Body Mass Index (BMI) 24.0 Physical Exam Const alert, oriented x3 and no apparent distress Constitutional Narrative: Patient appears older than her stated age General Appearance: cooperative, well kempt and well developed Orientation / Consciousness: awake, oriented to person, oriented to place and oriented to time HEENT normocephalic and moist oral mucous membranes Eyes PERRL, EOMs intact bilaterally and conjunctivae normal Neck supple, no JVD, thyroid normal and no carotid bruits General: trachea midline Resp normal respiratory effort, no retractions, no use of accessory muscles and clear to auscultation bilaterally Auscultation: Negative for rales, rhonchi or wheezes Cardio regular rate, regular rhythm, S1 normal heart sound, S2 normal heart sound, no murmurs, no rub and no gallops GI normal to inspection, nondistended, normoactive bowel sounds, soft to palpation, non-tender and non-distended Extremity no clubbing, cyanosis or edema Skin Skin Narrative: There is an area of redness and tenderness over the mid lateral abdomen wall, this area is approximately 4 to 5 cm x 4 cm in diameter. There is no drainage noted from the area. Neuro oriented x3, CN's II-XII intact bilaterally, moves all extremities, no focal motor deficits and no sensory deficits noted Sensorium / Orientation: awake and alert Speech: speech normal Psych affect normal Results Lab / Micro Data 11/11/23 07:40 07/29/24 07:40 Labs: Laboratory Results - last 24 hr 11/11/23 07:40: WBC 7.1, RBC 5.23, Hgb 15.6 H, Hct 46.1, MCV 88.1, MCH 29.8, MCHC 33.8, RDW Std Deviation 41.9, RDW Coeff of Cele 12.9, Plt Count 219, MPV 10.3, Immature Gran % (Auto) 1.600 H, Neut % (Auto) 66.6, Lymph % (Auto) 18.4 L, Pender % (Auto) 12.0 H, Eos % (Auto) 0.8, Baso % (Auto) 0.6, Absolute Neuts (auto) 4.7, Absolute Lymphs (auto) 1.30, Nucleated RBC % 0, PT 12.9, INR 1.0, APTT 30.3, Sodium 133 L, Potassium 3.2 L, Chloride 99, Carbon Dioxide 28.0, Anion Gap 6, BUN 4 L, Creatinine 0.74, Estim Creat Clear Calc 79.11, Est GFR (MDRD) Af Amer 106, Est GFR (MDRD) Non-Af 87, BUN/Creatinine Ratio 5.4 L, Glucose 652 H*, Lactic Acid 2.5 H*, Calcium 9.0, Total Bilirubin 1.10 H, AST 35, ALT 50, Alkaline Phosphatase 130 H, Troponin I High Sens 5, Total Protein 6.6, Albumin 3.1 L, Globulin 3.5, Albumin/Globulin Ratio 0.9 11/11/23 08:20: Urine Color Yellow, Urine Clarity Sl. Cloudy, Urine pH 6.0, Ur Specific [place] 1.010, Urine Protein Negative, Urine Glucose (UA) 1000 H, Urine Ketones 5 H, Urine Occult Blood 10 H, Urine Nitrite Positive H, Urine Bilirubin Negative, Urine Urobilinogen 1 H, Ur Leukocyte Esterase 500 H, Urine RBC 0 SEEN, Urine WBC >100 SEEN, Ur Squamous Epith Cells 0-5 SEEN, Urine Bacteria 1+, Urine Mucus 0 SEEN 11/11/23 11:52: POC Glucose 266 H Imaging Radiology Impression Abdomen/Pelvis CT 11/11/23 08:52 IMPRESSION: Soft tissue swelling with skin thickening in the subcutaneous tissues overlying the left lateral mid and lower abdominal wall with evidence of a phlegmon without drainable fluid collection. Status post cholecystectomy and hysterectomy. Electronically Signed: Elian Johnson MD at 9:42 EDT , Chest X-Ray 11/11/23 09:00 IMPRESSION: Stable examination. No acute abnormality is seen. Electronically Signed: Elian Johnson MD at 9:58 EDT , Assessment & Plan Assessment/Plan (1) Cellulitis: PLAN: Plan 1. Cellulitis of the abdominal wall-patient will be placed in observation status on MedSurg 3, she will be placed on IV Unasyn and reevaluated tomorrow. IV and p.o. pain medications will be administered as needed #2 acute cystitis-again patient will be placed on Unasyn, urine cultures are pending #3 uncontrolled type 2 diabetes secondary to noncompliance with medication-patient will be placed on basal insulin, Humalog with each meal, and fingerstick blood sugars will be monitored. Sliding scale insulin will be given as necessary #4 noncompliance with medical treatment-patient has been cautioned to follow-up with a physician regarding her type 2 diabetes. Total clinical time spent by myself addressing the patient's medical issues, reviewing all of her data, and collaborating with patient's care team: 55 minutes Charges/Coding Visit Charges Inpatient E&M: 94391 Init Hosp L2
[2023-11-11 12:54] LABS: Lactic Acid 1.5 mmol/L (0.4-1.9)
--- NOTE | 2023-11-11 16:08 | CASEMGMT ---
GOLD LANDON Assessment: Face to Face with pt for initial transition planning/care coordination assessment. GOLD LANDON introduced self and role at [facility], pt voices understanding and consents to assessment. Pt is A&O x4 and answers all questions appropriately at this time. Pt lying in bed in no distress. Care providers, pharmacy, and demographics verified/updated. Admitting Dx: cellulitis of abdominal wall PCP:Maribel Rockwell in [place]- Pt agreeable to a PCP pamphlet. 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 Pt reports she is I in ADL's/IADL's and denies concerns at home. Transportation: Pt drives self and denies concerns with transportation. DME:Denies. Pt does not have BGM nor insulin or needles. HHC/SNF: Denies hx of Pt states no concerns with going home at time of dc. Pt is not sure if she will return to [place] or stay here in [place]. Will provide pt with pamphlet of local physicians should pt decide to stay in [place]. Pt states she has not been taking very good care of herself lately and needs to get back to doing so. Pt aware GOLD LANDON will obtain rx for her for a BGM. Pt denies any homegoing needs otherwise. Pt states she uses a pack of cigarettes that lasts 2-3 days. Pt denies any alcohol or any other drug use. Pt states no further concerns/needs. CM to follow. Advised pt to ask CM if any further question/concerns/needs arise, voices understanding. Pt Goal: Home Plan: Home, rx for BGM, pamphlet of local healthcare providers Paula MACLOLM CM
[2023-11-11 16:51] LABS: Bedside Glucose 100 mg/dL (74-106)
[2023-11-11] MEDS: Ketorolac 30 MG/ML Syringe IV ×2 (17:20→22:54)
[2023-11-11 21:29] LABS: Amphetamine Urine VISTA NEGATIVE (<1000 ng/mL); Barbiturate Urine VISTA NEGATIVE (< 200 ng/mL); Benzodiazepine Urine VISTA NEGATIVE (< 200 ng/mL); Cocaine Urine VISTA POSITIVE (< 300 ng/mL); Ecstacy Urine VISTA NEGATIVE (< 500 ng/mL); Methadone Urine VISTA NEGATIVE (< 300 ng/mL); PCP Urine VISTA NEGATIVE (< 25 ng/mL); THC Urine VISTA POSITIVE (< 50 ng/mL); Vista UDS pH Range 5
[2023-11-12] VITALS (7 sets, daily range): BP systolic 98–114; BP diastolic 58–64; PULSE 77–87; RESP 16–18; TEMP 36.4–37.9; O2SAT 90–98
[2023-11-12] MEDS: Ampicillin/Sulbactam 3 GM in 0.9% Normal Saline (100mL MB+) 100 ML IV ×5 (00:26→23:28)
[2023-11-12 01:00] LABS: Bedside Glucose 236 mg/dL (74-106)
[2023-11-12] MEDS: Ketorolac 30 MG/ML Syringe IV ×3 (05:44→18:29)
[2023-11-12 06:44] LABS: Absolute Lymphocyte Count 1.45 X10^3/uL (0.83-4.51); Absolute Neutrophil Count 6.2 X10^3/uL (2.0-7.7); Basophil# 0.04 X10^3/uL; Basophil% 0.4 % (0-1); Eosinophil# 0.12 X10^3/uL; Eosinophils% 1.3 % (0-5); Hemoglobin 13.4 g/dL (12.0-15.0); Lymphocyte # 1.45 X10^3/ul (0.83-4.51); Lymphocyte % 16.3 % (19-41); Mean Corp Hgb Conc 32.7 g/dL (32-36); Mean Corpuscular Hgb 29.1 pg (27.0-32.0); Mean Corpuscular Volume 88.9 fL (81-99); Mean Platelet Vol. 10.8 fl (6.2-12.0); Monocyte# 1.08 X10^3/uL; Monocyte% 12.1 % (0-10); NRBC Flagged by Analyzer 0 % (0-5); Neutrophil # 6.17 X10^3/uL (2.7-7.7); Neutrophil % 69.2 % (47-70); Platelet Count 188 K/mm3 (150-450); RBC Distribution Width CV 13.1 % (11.6-14.6); RBC Distribution Width SD 42.5 fl (35.1-43.9); Red Blood Count 4.61 M/mm3 (4.2-5.4); White Blood Count 8.9 K/mm3 (4.4-11.0)
[2023-11-12 07:33] LABS: Anion Gap 4 (5-15); BUN 5 mg/dL (7-18); BUN/Creat Ratio 15.9 RATIO (10-20); Calcium,Total 8.1 mg/dL (8.5-10.1); Chloride 109 mmol/L (98-107); Creatinine, Serum 0.31 mg/dL (0.55-1.02); EST Glomerular Filtration Rate 235 mL/min (>60); Est Glom Filt Rate - Afr Amer 284 mL/min (>60); Estimated Creatinine Clearance 188.85 ml/min; Glucose 138 mg/dL (74-106); Potassium 3.2 mmol/L (3.5-5.1); Sodium Level 143 mmol/L (136-145)
[2023-11-12] MEDS: Insulin Lispro 100 UNIT/ML INSULN.PEN 15 UNIT SC ×3 (07:40→16:27)
[2023-11-12] MEDS: Insulin Lispro 100 UNIT/ML INSULN.PEN SC ×4 (07:41→21:13)
[2023-11-12 08:04] LABS: Bedside Glucose 151 mg/dL (74-106)
[2023-11-12] MEDS: 0.9% Normal Saline (1000mL) 1,000 ML 100 ML IV ×2 (10:01→21:16)
--- NOTE | 2023-11-12 10:04 | US_ITS ---
STUDY: SUPERFICIAL ULTRASOUND - LEFT FLANK REASON FOR EXAM: Female, 53 years old. celluitis left abdominal wall TECHNIQUE: A superficial ultrasound was performed with real-time and static benito-scale imaging. COMPARISON: None. FINDINGS: Multiple longitudinal and transverse ultrasound images of the left flank demonstrate skin thickening and edema dissecting''s fat consistent with cellulitis. There is a 5 cm irregular hypoechoic area between the skin in the subcutaneous fat which may represent phlegmon formation. No well-defined wall or round fluid collection. US/Other Unlisted US Procedure IMPRESSION: Suspect cellulitis with a 5 cm phlegmon of the subjacent subcutaneous fat. Electronically Signed: Josh Munoz MD at 12:38 EDT ,
[2023-11-12] MEDS: oxyCODONE 5 MG Tablet PO ×2 (10:06→20:11)
[2023-11-12] MEDS: Insulin Glargine-YFGN 100 UNIT/ML Pen 20 UNIT SC (10:07)
[2023-11-12] MEDS: Ondansetron 4 MG/2 ML Vial IV (10:11)
--- NOTE | 2023-11-12 10:47 | CASEMGMT ---
GOLD LANDON in pt room, pt provided with a rx for BGM and pt made aware of how often to test blood sugars. Pt also given a local healthcare directory pamphlet with highlighted PCP's as well as highlighted specialists that pt reported she had in [place]. Also provided pt a handout on [facility]. Pt states she is able to set up her own appts and denies any need for assistance with this.
[2023-11-12] MEDS: 0.9% Saline Lock 10 ML Syringe IV (12:11)
[2023-11-12 12:24] LABS: Bedside Glucose 150 mg/dL (74-106)
--- NOTE | 2023-11-12 13:20 | PN.HOSP_ITS ---
Reason for Visit Reason for Visit: Diagnoses Cellulitis, unspecified (11/12/23) Subjective Subjective Patient was seen and examined today, she still has redness and tenderness over her left lateral mid abdomen, it does not appear to have changed in size since yesterday. I have decided to have general surgery take a look at the patient and they requested an ultrasound of the area to rule out abscess. Objective Data Objective Data Vital Signs: Vital Signs Temp Pulse Resp BP Pulse Ox O2 Del Method O2 Flow Rate 98.9 F 78 16 98/61 98 Room Air 2 11/12/23 09:00 11/12/23 09:00 11/12/23 09:00 11/12/23 09:00 11/12/23 09:00 11/12/23 09:00 11/12/23 00:29 Oxygen Flow Rate (L/min) 2 Oxygen Delivery Method Room Air Weight: 65.621 kg Body Mass Index (BMI) 24.0 Intake & Output: Intake and Output for Last 24 Hours 11/10/23 11/11/23 11/12/23 23:59 23:59 23:59 Intake Total 2809.00 / 3009.00 1879.33 / 1879.33 Balance 2809.00 / 3009.00 1879.33 / 1879.33 Lab / Micro Data 11/12/23 05:41 11/12/23 05:41 Labs: Laboratory Results - last 24 hr 11/11/23 08:20: Urine Opiates Screen POSITIVE H, Urine Methadone Screen NEGATIVE, Ur Barbiturates Screen NEGATIVE, Ur Phencyclidine Scrn NEGATIVE, Ur Amphetamines Screen NEGATIVE, MDMA (Ecstasy) Screen NEGATIVE, U Benzodiazepines Scrn NEGATIVE, Urine Cocaine Screen POSITIVE H, U Cannabinoids Screen POSITIVE H , Ur Drug Screen Comment 11/11/23 16:33: POC Glucose 100 11/11/23 22:33: POC Glucose 236 H 11/12/23 05:41: WBC 8.9, RBC 4.61, Hgb 13.4, Hct 41.0, MCV 88.9, MCH 29.1, MCHC 32.7, RDW Std Deviation 42.5, RDW Coeff of Cele 13.1, Plt Count 188, MPV 10.8, Immature Gran % (Auto) 0.700, Neut % (Auto) 69.2, Lymph % (Auto) 16.3 L, [place] % (Auto) 12.1 H, Eos % (Auto) 1.3, Baso % (Auto) 0.4, Absolute Neuts (auto) 6.2, Absolute Lymphs (auto) 1.45, Nucleated RBC % 0, Sodium 143, Potassium 3.2 L, C hloride 109 H, Carbon Dioxide 30.0, Anion Gap 4 L, BUN 5 L, Creatinine 0.31 L, Estim Creat Clear Calc 188.85, Est GFR (MDRD) Af Amer 284, Est GFR (MDRD) Non-Af 235, BUN/Creatinine Ratio 15.9, Glucose 138 H, Calcium 8.1 L 11/12/23 07:39: POC Glucose 151 H 11/12/23 12:00: POC Glucose 150 H Micro: Microbiology 11/11/23 08:20 Urine, Clean Catch Urine Culture - Preliminary Presumptive E. coli Radiography Diagnostic Testing: Radiology Impression Soft Tissue Ultrasound 11/12/23 10:04 IMPRESSION: Suspect cellulitis with a 5 cm phlegmon of the subjacent subcutaneous fat. Electronically Signed: Josh Munoz MD at 12:38 EDT , Physical Exam Narrative alert, oriented x3 and no apparent distress Constitutional Narrative: Patient appears older than her stated age General Appearance: cooperative, well kempt and well developed Orientation / Consciousness: awake, oriented to person, oriented to place and oriented to time HEENT normocephalic and moist oral mucous membranes Eyes PERRL, EOMs intact bilaterally and conjunctivae normal Neck supple, no JVD, thyroid normal and no carotid bruits General: trachea midline Resp normal respiratory effort, no retractions, no use of accessory muscles and clear to auscultation bilaterally Auscultation: Negative for rales, rhonchi or wheezes Cardio regular rate, regular rhythm, S1 normal heart sound, S2 normal heart sound, no murmurs, no rub and no gallops GI normal to inspection, nondistended, normoactive bowel sounds, soft to palpation, non-tender and non-distended Extremity no clubbing, cyanosis or edema Skin Skin Narrative: There is an area of redness and tenderness over the mid lateral abdomen wall, this area is approximately 4 to 5 cm x 4 cm in diameter. There is no drainage noted from the area. Neuro oriented x3, CN's II-XII intact bilaterally, moves all extremities, no focal motor deficits and no sensory deficits noted Sensorium / Orientation: awake and alert Speech: speech normal Psych affect normal Assessment & Plan Assessment/Plan (1) Cellulitis: PLAN: Plan 1. Cellulitis of the abdominal wall-patient was changed to full admission today due lack of improvement of her cellulitis, I will have general surgery see her for possible I&D, she will have an ultrasound of the abdominal wall to rule out abscess. Patient remains on Unasyn #2 acute cystitis-patient on Unasyn #3 uncontrolled type 2 diabetes secondary to noncompliance with medication- sugars have improved since admission. #4 noncompliance with medical treatment-patient has been cautioned to follow-up with a physician regarding her type 2 diabetes. Total clinical time spent by myself addressing the patient's medical issues, reviewing all of her data, and collaborating with patient's care team: 35 minutes Charges/Coding Visit Charges Inpatient E&M: 59009 Subs Hosp L2
--- NOTE | 2023-11-12 14:29 | EX.PCM.CON.S ---
Assessment & Plan Assessment/Plan (1) Abdominal wall abscess: PLAN: Patient 53-year-old female with history of uncontrolled type 2 diabetes mellitus who presents with progressive discomfort from the left abdominal wall wound. Patient unable to recall how this area of irritation started but does share that she has seen some drainage and has had fevers even while she has been admitted since yesterday. I requested a abdominal ultrasound after patient underwent CT imaging yesterday showing possible phlegmon. This study once again showed evidence of possible phlegmon but no discrete fluid collection yet on exam patient has clear evidence of fluctuance. Therefore I am recommending we proceed with incision and drainage of this area. I have considered performing this procedure at bedside, however, I do not believe patient would tolerate a thorough cleanout of this area and thus am recommending that we proceed for operative I&D tomorrow since she has just recently eaten. This plan was communicated not only the patient but also to the hospitalist team who will plan to make adjustments to patient's diet and insulin regimen. Patient be consented for operative I&D of left abdominal wall abscess. Jose Simeon MD General Surgery Endocrine Surgery Pager: [facility] [address] [place] [address], [facility], [address] [place] [address] Office: [phone] HPI Consult Data Date of Consult: 11/12/23 HPI Narrative Reason for Consultation: Abdominal wall abscess HPI Narrative: ANA CRISTINA THOMAS, is a 53 F who presents to [facility] for the second time in 1 week due to progressive abdominal discomfort. She describes noting an area of irritation in the left abdominal wall approximately 3 weeks ago. She shares that it has not improved and only became tender. She believes that there has been some drainage from part of the area but none is evident today. She was admitted yesterday and placed on IV antibiotics and overnight nursing recorded a fever of over 100 ?F. Patient has a history of diabetes mellitus that is poorly controlled and reportedly had blood sugars in the 400s on her intake. She states that she has done some hard thinking and is prepared to take better ownership of this disease process. Patient has a history of perirectal abscess status postoperative incision and drainage. She shares that she is familiar with the packing procedure and has help at home to complete this process if required. [facility] Medical History Hypertension Neuropathy Diabetes Sarcoidosis Home Medications ?Medication ?Instructions ?Recorded ?Last Taken ?Type buspirone 10 mg tablet 10 mg PO TID 07/19/13 Unknown History cephalexin 500 mg capsule 500 mg PO Q6 #40 CAPSULES 11/04/23 11/10/23 Rx Allergy/AdvReac Type Severity Reaction Status Date / Time aspirin AdvReac Other Verified 11/11/23 07:14 hydromorphone (From Dilaudid) AdvReac Other Verified 11/11/23 07:14 pseudoephedrine HCl (From AdvReac Other Verified 11/11/23 07:14 Sudafed) Surgical History Hx of brain surgery Hx of appendectomy Hx of section Hx of total adrenalectomy Social History Smoking Status: Current every day smoker tobacco type: cigarettes Physical Exam Const alert and oriented x3 Constitutional Narrative: Patient is exceptionally anxious Resp normal respiratory effort GI GI Narrative: There is a moderately blanchable erythematous area approximately 8 cm x 4 cm that is fluctuant superiorly appears to come to ahead and 2 separate sinus tracts. Patient is exquisitely tender to palpation. Lab / Micro Data 11/12/23 05:41 11/12/23 05:41 Labs: Laboratory Results - last 24 hr 11/11/23 08:20: Urine Opiates Screen POSITIVE H, Urine Methadone Screen NEGATIVE, Ur Barbiturates Screen NEGATIVE, Ur Phencyclidine Scrn NEGATIVE, Ur Amphetamines Screen NEGATIVE, MDMA (Ecstasy) Screen NEGATIVE, U Benzodiazepines Scrn NEGATIVE, Urine Cocaine Screen POSITIVE H, U Cannabinoids Screen POSITIVE H, Ur Drug Screen Comment 11/11/23 16:33: POC Glucose 100 11/11/23 22:33: POC Glucose 236 H 11/12/23 05:41: WBC 8.9, RBC 4.61, Hgb 13.4, Hct 41.0, MCV 88.9, MCH 29.1, MCHC 32.7, RDW Std Deviation 42.5, RDW Coeff of Cele 13.1, Plt Count 188, MPV 10.8, Immature Gran % (Auto) 0.700, Neut % (Auto) 69.2, Lymph % (Auto) 16.3 L, [place] % (Auto) 12.1 H, Eos % (Auto) 1.3, Baso % (Auto) 0.4, Absolute Neuts (auto) 6.2, Absolute Lymphs (auto) 1.45, Nucleated RBC % 0, Sodium 143, Potassium 3.2 L, Chloride 109 H, Carbon Dioxide 30.0, Anion Gap 4 L, BUN 5 L, Creatinine 0.31 L, Estim Creat Clear Calc 188.85, Est GFR (MDRD) Af Amer 284, Est GFR (MDRD) Non-Af 235, BUN/Creatinine Ratio 15.9, Glucose 138 H, Calcium 8.1 L 11/12/23 07:39: POC Glucose 151 H 11/12/23 12:00: POC Glucose 150 H Micro: Microbiology 11/11/23 08:20 Urine, Clean Catch Urine Culture - Preliminary Presumptive E. coli Imaging Radiology Impression Soft Tissue Ultrasound 11/12/23 10:04 IMPRESSION: Suspect cellulitis with a 5 cm phlegmon of the subjacent subcutaneous fat. Electronically Signed: Josh Munoz MD at 12:38 EDT , Charges/Coding Visit Charges Inpatient E&M: 95797 Init Hosp L2
[2023-11-12 16:46] LABS: Bedside Glucose 199 mg/dL (74-106)
[2023-11-12 21:34] LABS: Bedside Glucose 194 mg/dL (74-106)
[2023-11-13] VITALS (13 sets, daily range): BP systolic 92–137; BP diastolic 54–78; PULSE 64–88; RESP 16–18; TEMP 36.3–37; O2SAT 92–97; BMI 24.0
[2023-11-13] MEDS: Ketorolac 30 MG/ML Syringe IV ×2 (03:44→13:41)
[2023-11-13] MEDS: Ampicillin/Sulbactam 3 GM in 0.9% Normal Saline (100mL MB+) 100 ML IV ×3 (05:24→18:17)
[2023-11-13] MEDS: Insulin Lispro 100 UNIT/ML INSULN.PEN SC (06:27)
[2023-11-13 06:56] LABS: Bedside Glucose 258 mg/dL (74-106)
[2023-11-13 07:19] LABS: Anion Gap 3 (5-15); BUN 7 mg/dL (7-18); BUN/Creat Ratio 20.5 RATIO (10-20); Calcium,Total 8.2 mg/dL (8.5-10.1); Chloride 108 mmol/L (98-107); Creatinine, Serum 0.34 mg/dL (0.55-1.02); EST Glomerular Filtration Rate 213 mL/min (>60); Est Glom Filt Rate - Afr Amer 258 mL/min (>60); Estimated Creatinine Clearance 172.19 ml/min; Glucose 277 mg/dL (74-106); Potassium 3.3 mmol/L (3.5-5.1); Sodium Level 140 mmol/L (136-145)
--- NOTE | 2023-11-13 08:23 | PCM.PN.SRG ---
Subjective Subjective Patient is a 53 y/o F I am following in conjunction with Dr. Simeon. Patient notes the area on her left lower abdomen did open up and is draining some. Patient denies any new concerns at this time. Objective Data Objective Data Vital Signs: Vital Signs Temp Pulse Resp BP Pulse Ox O2 Del Method O2 Flow Rate 98.4 F 64 18 92/57 L 95 Room Air 2 11/13/23 08:14 11/13/23 08:14 11/13/23 08:14 11/13/23 08:14 11/13/23 08:14 11/13/23 08:14 11/12/23 00:29 Oxygen Flow Rate (L/min) 2 Oxygen Delivery Method Room Air Weight: 144 lb 10.724 oz Body Mass Index (BMI) 24.0 Intake & Output: Intake and Output for Last 24 Hours 11/11/23 11/12/23 11/13/23 23:59 23:59 23:59 Intake Total 2809.00 / 3009.00 2731.33 / 2731.33 1037.33 / 1037.33 Balance 2809.00 / 3009.00 2731.33 / 2731.33 1037.33 / 1037.33 Lab / Micro Data 11/12/23 05:41 11/13/23 05:55 Labs: Laboratory Results - last 24 hr 11/12/23 12:00: POC Glucose 150 H 11/12/23 16:25: POC Glucose 199 H 11/12/23 21:12: POC Glucose 194 H 11/13/23 05:55: Sodium 140, Potassium 3.3 L, Chloride 108 H, Carbon Dioxide 29.0, Anion Gap 3 L, BUN 7, Creatinine 0.34 L, Estim Creat Clear Calc 172.19, Est GFR (MDRD) Af Amer 258, Est GFR (MDRD) Non-Af 213, BUN/Creatinine Ratio 20.5 H, Glucose 277 H, Calcium 8.2 L 11/13/23 06:25: POC Glucose 258 H Micro: Microbiology 11/11/23 08:20 Urine, Clean Catch Urine Culture - Preliminary Presumptive E. coli Radiography Diagnostic Testing: Radiology Impression Soft Tissue Ultrasound 11/12/23 10:04 IMPRESSION: Suspect cellulitis with a 5 cm phlegmon of the subjacent subcutaneous fat. Electronically Signed: Josh Munoz MD at 12:38 EDT , Physical Exam GI GI Narrative: Abdomen, left lower quadrant- two small ulcerated areas. One of the areas is draining purulent material. There is palpable fluctuance to the left the open wound. Erythema is noted and has not spread outside of the marking that was placed. Assessment & Plan Assessment/Plan (1) Abdominal wall abscess: PLAN: I am following this patient in conjunction with Dr. Simeon. He has independently evaluated this patient. Plan is to proceed to the operating room later today for an incision and drainage of the left lower quadrant abdominal abscess. Patient has had the opportunity to ask and have questions answered. Patient verbally understands and agrees with the plan. Charges/Coding Visit Charges Inpatient E&M: 31104 Subs Hosp L1 (no charge)
[2023-11-13] MEDS: 0.9% Normal Saline (1000mL) 1,000 ML 100 ML IV (08:26)
[2023-11-13 10:10] LABS: Hemoglobin A1c 11.5 % (3.8-5.6)
[2023-11-13 11:55] LABS: Bedside Glucose 195 mg/dL (74-106)
--- NOTE | 2023-11-13 12:14 | WOUNDNOTE ---
wound photo: left abdomen
[2023-11-13] MEDS: 0.9% Normal Saline (1000mL) 1,000 ML 15 ML IV (14:16)
--- NOTE | 2023-11-13 15:21 | PCM.CONS.C ---
Assessment & Plan Assessment/Plan (1) Preoperative cardiovascular examination: PLAN: Patient is going for low risk procedure and has intermediate predictors of possible cardiovascular complications. She has good functional capacity. She does not need any further cardiac workup prior to incision and drainage of the abdominal wall abscess. She is at low risk for perioperative cardiac complications. Risks and benefits of proceeding with surgery was discussed in detail with the patient. (2) Abnormal EKG: PLAN: Nonspecific ST-T changes. Patient can have outpatient workup for this. HPI Consult Data Date of Consult: 11/13/23 HPI Narrative Reason for Consultation: Preoperative cardiac evaluation HPI Narrative: ANA CRISTINA THOMAS, is a 53 F who presents with left-sided abdominal pain. Patient was supposed to have incision and drainage of left sided abdominal wall abscess. An EKG was done which revealed anterior and lateral T wave inversions in the cardiology consult was requested for preoperative cardiac evaluation. Patient denies any cardiac complaints. She has greater than 4 METS of exercise capacity. She had a flat tire in [place] recently and walked a long distance without any cardiac complaints. She also had recent colonoscopy with sedation without any complications. ON LICENSE OF [facility] Medical History Hypertension Neuropathy Diabetes Sarcoidosis Home Medications ?Medication ?Instructions ?Recorded ?Last Taken ?Type buspirone 10 mg tablet 10 mg PO TID 07/19/13 Unknown History cephalexin 500 mg capsule 500 mg PO Q6 #40 CAPSULES 11/04/23 11/10/23 Rx Allergy/AdvReac Type Severity Reaction Status Date / Time aspirin AdvReac Other Verified 11/11/23 07:14 hydromorphone (From Dilaudid) AdvReac Other Verified 11/11/23 07:14 pseudoephedrine HCl (From AdvReac Other Verified 11/11/23 07:14 Sudafed) Surgical History Hx of brain surgery Hx of appendectomy Hx of section Hx of total adrenalectomy Social History Smoking Status: Current every day smoker tobacco type: cigarettes Physical Exam Const alert and oriented x3 HEENT normocephalic Eyes no scleral icterus Resp normal respiratory effort Cardio regular rate and regular rhythm Psych mental status grossly normal Risk Stratification Risk Stratification Applicable: No Charges/Coding Visit Charges Inpatient E&M: 46661 Init Hosp L2 Objective Data Vital Signs: Vital Signs Temp Pulse Resp BP Pulse Ox O2 Del Method O2 Flow Rate 98.3 F 79 18 121/74 H 97 Room Air 2 11/13/23 14:00 11/13/23 14:00 11/13/23 14:00 11/13/23 14:00 11/13/23 14:00 11/13/23 14:00 11/12/23 00:29 Oxygen Flow Rate (L/min) 2 Oxygen Delivery Method Room Air Weight: 144 lb 10.724 oz Body Mass Index (BMI) 24.0 Intake & Output: Intake and Output for Last 24 Hours 11/11/23 11/12/23 11/13/23 23:59 23:59 23:59 Intake Total 2809.00 / 3009.00 2731.33 / 2731.33 1874.74 / 1874.74 Balance 2809.00 / 3009.00 2731.33 / 2731.33 1874.74 / 1874.74 Lab / Micro Data 11/12/23 05:41 11/13/23 05:55 Labs: Laboratory Results - last 24 hr 11/12/23 16:25: POC Glucose 199 H 11/12/23 21:12: POC Glucose 194 H 11/13/23 05:55: Sodium 140, Potassium 3.3 L, Chloride 108 H, Carbon Dioxide 29.0, Anion Gap 3 L, BUN 7, Creatinine 0.34 L, Estim Creat Clear Calc 172.19, Est GFR (MDRD) Af Amer 258, Est GFR (MDRD) Non-Af 213, BUN/Creatinine Ratio 20.5 H, Glucose 277 H, Hemoglobin A1c 11.5 H, Calcium 8.2 L 11/13/23 06:25: POC Glucose 258 H 11/13/23 11:36: POC Glucose 195 H Micro: Microbiology 11/11/23 07:40 Blood Culture (Wb) - Anticubital Left Blood Culture - Preliminary No growth in 48 hours. 11/11/23 08:20 Urine, Clean Catch Urine Culture - Final Presumptive E. coli Cardiology Labs/Tests 11/13/23 05:55: Sodium 140, Potassium 3.3 L, Chloride 108 H, Carbon Dioxide 29.0, Anion Gap 3 L, BUN 7, Creatinine 0.34 L, Est GFR (MDRD) Af Amer 258, Est GFR (MDRD) Non-Af 213, BUN/Creatinine Ratio 20.5 H, Glucose 277 H, Hemoglobin A1c 11.5 H, Calcium 8.2 L Rhythm: EKG: ECHO: Stress Test: Cardiac Cath: PCI: CT Surgery: Holter monitor: EPS: PPM: CXR: Chest CT Scan:
--- NOTE | 2023-11-13 15:37 | PCM.PRE.AN2 ---
ASA Classification* ASA Classification ASA Classification: 3 (patient had new EKG abnormalities from prior EKG(2014), negative T waves in lead V3-6, L I; consistent with ant-lat ischemia. Discussed with DR Manuel, will follow up on these abnormality. Dr Badillo was consulted and deemed patient optimized from a cardiac perspective ) and E Assessment & Plan Anesthesia* Anesthesia Assessment Anesthesia Assessment: Discussed sedation and/or anesthesia options, risks, benefits, and alternatives with patient/parents/legal guardian/POA. Questions invited. The patient/parents/legal guardian/POA seems to understand and agrees to proceed with anesthesia plan. Reviewed the physical assessment, medical history, allergy history and patient home medications list prior to surgery/procedure/anesthetic and documented any changes. Performed airway and anesthesia risk assessments. Anesthesia Type Anesthesia Type: General (see written pre anesthesia record for full assessment ) Anesthesia Focused Assessment* Temperature: 98.3 F Pulse Rate: 79 Blood Pressure: 121/74 Respiratory Rate: 18 Pulse Ox: 97 Airway Assessment Mouth opens: >3 cm Mallampati Score: II Focused Labs Anesthesia Preop lab: CBC WBC 8.9 K/mm3 (4.4-11.0) 11/12/23 05:41 RBC 4.61 M/mm3 (4.2-5.4) 11/12/23 05:41 Hgb 13.4 g/dL (12.0-15.0) 11/12/23 05:41 Hct 41.0 % (37-47) 11/12/23 05:41 Plt Count 188 K/mm3 (150-450) 11/12/23 05:41 CHEMISTRY Potassium 3.3 mmol/L (3.5-5.1) L 11/13/23 05:55 Sodium 140 mmol/L (136-145) 11/13/23 05:55 BUN 7 mg/dL (7-18) 11/13/23 05:55 Creatinine 0.34 mg/dL (0.55-1.02) L 11/13/23 05:55 Glucose 277 mg/dL (74-106) H 11/13/23 05:55 POC Glucose 195 mg/dL (74-106) H 11/13/23 11:36 COAG PT 12.9 SECONDS (11.7-14.9) 11/11/23 07:40 Pre-Assessment Diagnosis/Proposed Procedure Planned Operative Procedure(s): I and D of abdominal mass Anesthesia History Anesthesia History - newborn photographer: Anesthesia History - newborn photographer Hx Hospitalization Yes 11/13/13 05:31 Any Problems With Anesthesia No 11/13/23 03:40 Cholinesterase deficiency No 11/13/23 03:40 You/Your Family Experience No 11/13/23 03:40 fever (hyperthermia) with Relationship Recent Exposure to Contagious No 11/13/23 03:40 Disease Does patient have nerve No 11/13/23 03:40 stimulator Patient instructed to have No 11/13/23 03:40 device shut off --Does patient have Pacemaker No 11/13/23 08:11 or ICD? When Was Last Pacemaker Check QUESTION #4 FULL TEXT: You/Your Family Experience fever (hyperthermia) with Anesthesia Last Oral Intake Last Oral intake: Last Oral Intake NPO since 00:00 11/13/23 08:11 Meds taken in AM with sips of No 11/13/23 08:11 water? Meds patient instructed to take am of surgery PONV PONV - newborn photographer: PONV - newborn photographer Female HX of Motion Sickness HX of N/V After Surgery Non-Smoker Duration of Surgery greater than 60 minutes Number of Risk Factors PONV Score Height & Weight Height & Weight: Anesthesia: Height & Weight Height 5 ft 5 in 11/13/23 08:11 Weight: 65.621 kg 11/13/23 08:11 Body Mass Index (BMI) 24.0 11/13/23 08:11 Respiratory Assessment Respiratory Assessment - newborn photographer: Respiratory Tract Infection Hx - newborn photographer Hx Respiratory Tract Infection No 11/13/23 03:40 STOP Sleep Apnea STOP Sleep Apnea - newborn photographer: STOP Sleep Apnea - newborn photographer Hx Hypertension No 11/11/23 11:19 Hx Sleep Apnea Yes 11/11/23 11:19 CPAP No 11/11/23 11:19 BIPAP No 11/11/23 11:19 Do you snore loudly (louder than talking or can be heard Do you often feel tired/ fatigued/ sleepy during daytime? Has anyone observed you stop breathing during sleep? STOP Results Positive 11/11/23 11:19 QUESTION #5 FULL TEXT : Do you snore loudly (louder than talking or can be heard through closed doors)? Tobacco Use History Tobacco Use History - newborn photographer: Tobacco Use History - newborn photographer Tobacco Use Non-smoker 08/05/23 12:00 Smoking Status Current every day smoker 11/12/23 10:30 Hx Tobacco Use Yes 11/11/23 11:19 Years Smoking Packs Smoked per Day Smoking Cessation Date was within the last 15 years Hx Smoking Cessation Date Hx Smoking Cessation No 11/11/23 11:19 Counseling Hematologic Medial History Hematologic Hx - newborn photographer: Hematologic Medical Hx - pillowcase turner Hx of Blood Transfusion No 11/11/23 11:19 Hx of Transfusion in last 3 No 11/11/23 11:19 Months Date of Last Transfusion (if within last 3 months) Ever experience any problems No 11/11/23 11:19 with transfusion(s)? Specify any problems Hx of Preganancy in last 3 No 11/11/23 11:19 Months Nurse Filling Out Transfusion KMESSENGE 11/11/23 11:19 & Questions: Date: 11/11/23 11/11/23 11:19 Time: 11:20 11/11/23 11:19 Patient unable to answer at this time (ie. confused, unrespo /Reproduction History /Reproductive History - newborn photographer: /Reproductive Hx- newborn photographer Hx Now No 11/13/23 03:40 Gestational Age (in weeks): EDC: Hx Hx Para Hx Section SAB No 11/13/23 03:40 Active Medications Active Medications: Current Medications Generic Name Dose Route Start Last Admin Trade Name Freq PRN Reason Stop Dose Admin Glucagon 1 mg 11/11/23 11:06 Glucagon 1 Mg/Ml Syringe IM X1 PRN Hypoglycemia Protocol Ampicillin Sodium/Sulbactam 112 mls @ 150 mls/hr 11/11/23 12:00 11/13/23 12:20 Sodium 3 gm/ Sodium Chloride IV Infused Q6 CONCEPCIÓN Infusion Dextrose 250 mls @ 0 mls/hr 11/11/23 11:06 Dextrose 10%-Water IV .Q0M PRN HYPOGLYCEMIA Protocol As Directed Sodium Chloride 250 mls @ 15 mls/hr 11/11/23 11:15 IV .[id number] PRN Additional IVPB Infusion Sodium Chloride 250 mls @ 15 mls/hr 11/11/23 11:15 IV .[id number] PRN Saline Flush Sodium Chloride 1,000 mls @ 15 mls/hr 11/13/23 14:15 11/13/23 15:11 IV Infused .Q48H CONCEPCIÓN Infusion Insulin Glargine 20 unit 11/11/23 11:06 11/12/23 10:07 Insulin Glargine-Yfgn 100 Unit/Ml Pen SC 20 unit BID CONCEPCIÓN Administration Protocol Insulin Human Lispro 15 unit 11/12/23 08:00 11/13/23 07:28 Insulin Lispro 100 Unit/Ml Insuln.Pen SC Not Given BREAKFAST [facility] Insulin Human Lispro 15 unit 11/11/23 12:00 11/13/23 11:37 Insulin Lispro 100 Unit/Ml Insuln.Pen SC Not Given LUNCH [facility] Insulin Human Lispro 15 unit 11/11/23 17:00 11/12/23 16:27 Insulin Lispro 100 Unit/Ml Insuln.Pen SC 15 u DINNER [facility] Administration Insulin Human Lispro 0 unit 11/11/23 11:06 11/13/23 11:37 Insulin Lispro 100 Unit/Ml Insuln.Pen SC Not Given ACHS [facility] Protocol Ketorolac Tromethamine 30 mg 11/11/23 11:06 11/13/23 13:41 Ketorolac 30 Mg/Ml Syringe IV 11/16/23 11:07 30 mg Q6H PRN PRN Administration Pain Score 1-10 Ondansetron HCl 4 mg 11/11/23 11:06 11/12/23 10:11 Ondansetron 4 Mg/2 Ml Vial IV 4 mg Q8H PRN PRN Administration NAUSEA/VOMITING Oxycodone HCl 10 - 15 mg 11/11/23 11:06 11/12/23 20:11 Oxycodone 5 Mg Tablet PO 10 mg Q4H PRN PRN Administration Pain Score 4-10 Sodium Chloride 10 - 40 ml 11/11/23 11:15 11/12/23 12:11 0.9% Saline Lock 10 Ml Syringe IV 10 ml UD PRN Administration SALINE FLUSH PFSH Medical History Hypertension Neuropathy Diabetes Sarcoidosis Home Medications ?Medication ?Instructions ?Recorded ?Last Taken ?Type buspirone 10 mg tablet 10 mg PO TID 07/19/13 Unknown History cephalexin 500 mg capsule 500 mg PO Q6 #40 CAPSULES 11/04/23 11/10/23 Rx Allergy/AdvReac Type Severity Reaction Status Date / Time aspirin AdvReac Other Verified 11/11/23 07:14 hydromorphone (From Dilaudid) AdvReac Other Verified 11/11/23 07:14 pseudoephedrine HCl (From AdvReac Other Verified 11/11/23 07:14 Sudafed) Surgical History Hx of brain surgery Hx of appendectomy Hx of section Hx of total adrenalectomy Social History Smoking Status: Current every day smoker tobacco type: cigarettes Review of Systems (Anesthesia) ROS Narrative System reviewed and no additional complaints, except as documented.
[2023-11-13] MEDS: Lactated Ringers 1,000 ML 15 ML IV (16:00)
[2023-11-13] MEDS: Bupivacaine 0.25% 30 ML Vial (16:57)
--- NOTE | 2023-11-13 17:29 | PCM.POST.ANE ---
Anesthesia: Postop Eval I Current Vital Signs Temperature: 98.4 F Pulse Rate: 88 Blood Pressure: 133/74 Respiratory Rate: 16 Pulse Ox: 97 Oxygen Delivery Method: Room Air Assessment Airway patent: Yes Spontaneous unlabored respirations: Yes Mental status: Awake and Apprehensive nausea: No Vomiting: No Anesthesia Complication: No Fluid Hydration Crystalloid volume administer (ml): 1,200 Total IV fluid infused: 1,200 Progress Note Anesthesia document: Postop Eval 1 completed: Yes
--- NOTE | 2023-11-13 17:30 | PCM.OPRPT ---
Report of Operation Date of Procedure: 11/13/23 Pre-Operative Diagnosis: Abdominal wall abscess Surgery/Procedure Performed:: Incision and drainage of abdominal wall abscess Description of Surgical Findings:: ? Partially drained abscess of the left lower abdominal wall ? Abscess cavity measuring 7.5 x 1.0 x 1.5 cm with medial undermining of 4 cm Surgeon: Jose Simeon garage construction equipment mechanic: None Type of Anesthesia: MAC/Supplemental/Local Anesthesiologist: Alejandro Mccullough Specimen's removed: Wound cultures Estimated Blood Loss (mL): 10 Description of Procedure: After confirming written consent, patient was positioned supine on the operating room table. She was administered sedation by anesthesia and her abdominal wall was prepped and draped in the usual sterile fashion after placing a bump under her left hip to optimize positioning. A verbal timeout was conducted to confirm the patient and procedure. Then the area was anesthetized with a local block using 20 mL of 0.25% bupivacaine. Then, an 10 blade scalpel was used to make a incision along the most fluctuant area of the abscess cavity connecting the 2 openly draining sinuses. Purulent material and some fat necrosis was expelled from the cavity along with some mild oozing. Wound cultures were obtained of the cavity base. The cavity was then irrigated with sterile saline. The cavity was packed tightly with half inch iodoform gauze. A 4 x 4 gauze was fluffed and an abdominal pad was placed atop this absorbent dressing and taped in the place. Patient tolerated the procedure without any apparent complication. Admit VTE Documentation VTE Mechan Device Prophylaxis: SCD's Procedures Integumentary 10xxx: 15322 Drainage of skin abscess
--- NOTE | 2023-11-13 17:32 | EKG12_ITS ---
Test Reason : POST OP Blood Pressure : / mmHG Vent. Rate : 080 BPM Atrial Rate : 080 BPM P-R Int : 152 ms QRS Dur : 074 ms QT Int : 360 ms P-R-T Axes : 055 003 228 degrees QTc Int : 415 ms Normal sinus rhythm Cannot rule out Inferior infarct , age undetermined Abnormal ECG When compared with ECG of 11-NOV-2023 07:30, MANUAL COMPARISON REQUIRED, DATA IS UNCONFIRMED Confirmed by HILARY BAUMANN, STEPHANIE ([id number]), telegraph editor MANDEEP WOODY ([id number]) on 11/15/2023 9:41:41 AM Referred By: IBIS Confirmed By:DANIELE RICHARD MD
[2023-11-13 18:06] LABS: Troponin-I HS 4 pg/mL (3.0-54.0)
--- NOTE | 2023-11-13 18:21 | PN.HOSP_ITS ---
Reason for Visit Reason for Visit: Diagnoses Cutaneous abscess of abdominal wall (11/12/23) Cellulitis, unspecified (11/12/23) Abnormal electrocardiogram [ECG] [EKG] (11/12/23) Encounter for preprocedural cardiovascular examination (11/12/23) Subjective Subjective Patient was seen and examined today, she underwent drainage of her cellulitic area on her abdominal wall today. Patient's blood culture did not grow out any organisms so far, urine culture was positive for E. coli which was pansensitive. Objective Data Objective Data Vital Signs: Vital Signs Temp Pulse Resp BP Pulse Ox O2 Del Method O2 Flow Rate 98.3 F 86 18 134/78 H 97 Room Air 2 11/13/23 18:13 11/13/23 18:13 11/13/23 18:13 11/13/23 18:13 11/13/23 18:13 11/13/23 18:13 11/13/23 15:37 Oxygen Flow Rate (L/min) 2 Oxygen Delivery Method Room Air Weight: 65.621 kg Body Mass Index (BMI) 24.0 Intake & Output: Intake and Output for Last 24 Hours 11/11/23 11/12/23 11/13/23 23:59 23:59 23:59 Intake Total 2809.00 / 3009.00 2731.33 / 2731.33 1874.74 / 1874.74 Balance 2809.00 / 3009.00 2731.33 / 2731.33 1874.74 / 1874.74 Lab / Micro Data 11/12/23 05:41 11/13/23 05:55 Labs: Laboratory Results - last 24 hr 11/12/23 21:12: POC Glucose 194 H 11/13/23 05:55: Sodium 140, Potassium 3.3 L, Chloride 108 H, Carbon Dioxide 29.0, Anion Gap 3 L, BUN 7, Creatinine 0.34 L, Estim Creat Clear Calc 172.19, Est GFR (MDRD) Af Amer 258, Est GFR (MDRD) Non-Af 213, BUN/Creatinine Ratio 20.5 H, Glucose 277 H, Hemoglobin A1c 11.5 H, Calcium 8.2 L 11/13/23 06:25: POC Glucose 258 H 11/13/23 11:36: POC Glucose 195 H 11/13/23 17:33: Troponin I High Sens 4 Micro: Microbiology 11/11/23 07:40 Blood Culture (Wb) - Anticubital Left Blood Culture - Preliminary No growth in 48 hours. 11/11/23 08:20 Urine, Clean Catch Urine Culture - Final Presumptive E. coli Physical Exam Narrative alert, oriented x3 and no apparent distress Constitutional Narrative: Patient appears older than her stated age General Appearance: cooperative, well kempt and well developed Orientation / Consciousness: awake, oriented to person, oriented to place and oriented to time HEENT normocephalic and moist oral mucous membranes Eyes PERRL, EOMs intact bilaterally and conjunctivae normal Neck supple, no JVD, thyroid normal and no carotid bruits General: trachea midline Resp normal respiratory effort, no retractions, no use of accessory muscles and clear to auscultation bilaterally Auscultation: Negative for rales, rhonchi or wheezes Cardio regular rate, regular rhythm, S1 normal heart sound, S2 normal heart sound, no murmurs, no rub and no gallops GI normal to inspection, nondistended, normoactive bowel sounds, soft to palpation, non-tender and non-distended Extremity no clubbing, cyanosis or edema Skin Skin Narrative: Patient's cellulitic area on her abdominal wall is covered with surgical dressing at this time and I did not remove the dressing to inspect the area. Neuro oriented x3, CN's II-XII intact bilaterally, moves all extremities, no focal motor deficits and no sensory deficits noted Sensorium / Orientation: awake and alert Speech: speech normal Psych affect normal Assessment & Plan Assessment/Plan (1) Abdominal wall abscess: (2) Cellulitis: PLAN: Plan 1. Cellulitis of the abdominal wall-patient will remain on IV Unasyn at this time, await culture results from surgery today #2 acute cystitis-patient on Unasyn #3 uncontrolled type 2 diabetes secondary to noncompliance with medication- sugars have improved since admission. #4 noncompliance with medical treatment-patient has been cautioned to follow-up with a physician regarding her type 2 diabetes. Total clinical time spent by myself addressing the patient's medical issues, reviewing all of her data, and collaborating with patient's care team: 25 minutes Charges/Coding Visit Charges Inpatient E&M: 30777 Subs Hosp L2
--- NOTE | 2023-11-13 18:46 | PCM.POSTANE2 ---
Anesthesia Postop Eval I Sum Postop Eval Completion status Anesthesia document: Postop Eval 1 completed: Yes Anesthesia Postop Eval I Summary Anesthesia Postop Eval I Summary: Anesthesia Postop Eval I: Assessment Summary Airway patent Yes 11/13/23 17:31 [email or web address] Spontaneous unlabored Yes 11/13/23 17:31 [email or web address] respirations Mental status Awake,Apprehensive 11/13/23 17:31 [email or web address] nausea No 11/13/23 17:31 [email or web address] Vomiting No 11/13/23 17:31 [email or web address] Anesthesia Postop Eval I: Fluid Summary Crystalloid volume administer 1,200 11/13/23 17:31 [email or web address] (ml) Colloids volume administered ( ml) Blood Product volume administered (ml) Total IV fluid infused 1,200 11/13/23 17:31 [email or web address] Anesthesia Postop Eval I: Summary Notes Anesthesia Complication No 11/13/23 17:31 [email or web address] Anesthesia Complication Comment: Post-operative progress note Anesthesia: Postop Eval II Evaluation Mental status: Awake and Calm Pain Level: 1 nausea: No Vomiting: No Complications Anesthesia Complication: No
--- NOTE | 2023-11-13 19:34 | NURSING ---
Pt asked to see her nurse. When this RN entered the room, pt states please don't be mad at me but i'm leaving. pt wouldn't give a reason why. states she knows how to take care of the wound and she feels good. pt states she knows she will be leaving against medical advice
--- NOTE | 2023-11-13 19:46 | NURSING ---
notified county supervisor that pt is leaving [facility]
--- NOTE | 2023-11-14 09:07 | DS.PCM_ITS ---
Providers Date of Admission: 11/11/23 Date of Discharge: 11/13/23 Primary Care Physician: JP PENA Consultations 11/12/23 10:04 Consult: General Surgery Routine Consulting Provider: Jose Simeon Reason for Consult: cellulitis EMERGENT Consult: No MD Notified: Yes Date Notified: 11/12/23 Time Notified: 10:04 Method of Notification: Verbal 11/13/23 12:14 Consult: Onc/Wound/digital marketing specialist Routine Comment: Reason for Consult:: left abdomen Reason For Visit: CELLULITIS OF ABDOMINAL WALL Diagnosis Discharge Diagnosis (1) Abdominal wall abscess: Status: Acute Code(s): L02.211 - Cutaneous abscess of abdominal wall (2) Cellulitis: Status: Inactive Code(s): L03.90 - Cellulitis, unspecified Plan 1. Cellulitis of the abdominal wall with abscess-patient will remain on IV Unasyn at this time, await culture results from surgery today #2 acute cystitis-patient on Unasyn #3 uncontrolled type 2 diabetes secondary to noncompliance with medication- sugars have improved since admission. #4 noncompliance with medical treatment-patient has been cautioned to follow-up with a physician regarding her type 2 diabetes. Total clinical time spent by myself addressing the patient's medical issues, reviewing all of her data, and collaborating with patient's care team: 25 minutes Medications at Discharge Home Medications buspirone 10 mg tablet 10 mg PO TID 07/19/13 cephalexin 500 mg capsule 500 mg PO Q6 #40 CAPSULES 11/04/23 Hospital Course Operations - (Incision and drainage of abdominal wall abscess) Procedures None Summary of Care Provided Minutes Spent on Discharge: 31 Hospital Course: This 53-year-old white female was seen in the emergency room at [facility] with complaints of persistent redness, tenderness, and swelling over her mid lateral left abdominal wall. Patient been seen a week prior in the emergency room and had been given Keflex but despite the antibiotic she stated the area became more tender and reddened. Physical exam revealed a reddened area on the left lateral side of the mid abdomen, patient's white blood cell count was normal, CT scan of the abdomen was done which showed evidence of a phlegmon but no abscess. Patient's blood pressure was elevated, she admitted to being noncompliant with taking medications for her medical problems as an outpatient. Patient's UA indicated a urinary tract infection. Patient was admitted to [facility], she was placed on Unasyn, she was seen in consultation by general surgery, an ultrasound of the area was performed which showed cellulitis with a 5 cm phlegmon in the subcutaneous fat of the abdomen. Patient was taken to surgery on 11/13/2023 and the area was drained and packing was placed. Later that night, patient notified nursing that she wished to check herself out AMA. Patient was discharged AMA on 11/13/2023. Weight / BMI Weight Weight: 65.621 kg Body Mass Index (BMI) 24.0 ABG / Lab / Microbiology Data 11/12/23 05:41 11/13/23 05:55 Laboratory: Laboratory Results - last 24 hr 11/13/23 05:55: Hemoglobin A1c 11.5 H 11/13/23 11:36: POC Glucose 195 H 11/13/23 17:33: Troponin I High Sens 4 Microbiology: Microbiology 11/11/23 07:40 Blood Culture (Wb) - Anticubital Left Blood Culture - Preliminary No growth in 48 hours. 11/11/23 08:20 Urine, Clean Catch Urine Culture - Final Presumptive E. coli Meaningful Use Info Meaningful Use Meaningful Use Diagnoses (Choose all that apply): None applicable Ischemic Stroke Statin Dosing Therapy Reference: STATIN DOSE THERAPY REFERENCE: * Patients > 75 years receive moderate or high dose statin therapy. * Patients 75 years or YOUNGER should receive HIGH intensity statin dose unless contraindicated. You will be required to document reason for non-treatment if statin daily dose does not meet guidelines. HIGH DOSE STATIN THERAPY DAILY Atorvastatin > than or = to 40 mg Rosuvastatin > than or = to 20 mg Amlodipine + Atorvastatin > than or = to 2.5/40 mg Ezetimibe + Simvastatin 10/80 mg Simvastatin 80mg Discharge Plan Admission Admit Date/Time: 11/12/23 09:53 Attending Provider: Ismael Paula Primary Care Provider: JP PENA Consulting Providers: Jose Simeon Discharge Orders/Prescriptions Prescriptions: No Action buspirone 10 MG tablet 10 mg PO TID cephalexin 500 mg capsule 500 mg PO Q6 Qty: 40 0RF Referrals / Follow Up: JP PENA [Other] JP PENA [Other] Disposition Disposition (needs filled in before D/C Order can be placed): Against Medical Advice Charges/Coding Visit Charges Inpatient E&M: 46849 Disch Hosp >30min
== END 2023-11-13 20:00 | disposition left against medical advice (07) | DRG 638 ==
LOC: ED 08:03 → MS3 10:47
PROVIDERS: Anesthesiology; Surgery; Admitting Provider Internal Medicine; Emergency Provider Emergency Medicine; Visit Provider Internal Medicine
PROC: 0H97XZZ Drainage of Abdomen Skin, External Approach (ICD-10-PCS; principal; 2023-11-13 14:35)
DX: E11.628 Type 2 diabetes mellitus with other skin complications (principal); L03.311 Cellulitis of abdominal wall; L02.211 Cutaneous abscess of abdominal wall; K65.4 Sclerosing mesenteritis; N30.00 Acute cystitis without hematuria; B95.62 Methicillin resistant Staphylococcus aureus infection as the cause of diseases classified elsewhere; E11.40 Type 2 diabetes mellitus with diabetic neuropathy, unspecified; E11.65 Type 2 diabetes mellitus with hyperglycemia; B96.20 Unspecified Escherichia coli [E. coli] as the cause of diseases classified elsewhere; I10 Essential (primary) hypertension; F17.210 Nicotine dependence, cigarettes, uncomplicated; Z79.4 Long term (current) use of insulin; R94.31 Abnormal electrocardiogram [ECG] [EKG]; Z91.148 Patient's other noncompliance with medication regimen for other reason; Z91.198 Patient's noncompliance with other medical treatment and regimen for other reason; Z79.891 Long term (current) use of opiate analgesic; Z79.899 Other long term (current) drug therapy; Z53.29 Procedure and treatment not carried out because of patient's decision for other reasons
CPT/HCPCS: 36415; 71045; 74177; 76999; 80048; 80053; 80307; 81001; 82962; 83036; 83605; 84484; 85025; 85610; 85730; 87015; 87040; 87070; 87075; 87077; 87086; 87088; 87102; 87116; 87186; 87205; 87206; 93005; 99285; 99406; J7030; J7040; J7050; J7120; Q9967; A4216; J0295; J2405

== ENCOUNTER 2023-11-17 05:30 | Emergency (ER) | payer MEDICARE, MEDICAID, SELFPAY ==
[2023-11-17 05:32] VITALS: BP 129/68; PULSE 94; RESP 18; TEMP 36; O2SAT 97; BMI 24.5
[2023-11-17 05:35] VITALS: BP 129/68; PULSE 92; RESP 18; TEMP 36; O2SAT 95
--- NOTE | 2023-11-17 06:00 | EDS_ITS ---
HPI History of Present Illness Chief Complaint: Wound Check Informant: patient Narrative Narrative: 53-year-old female that was recently admitted for an infection of her left upper abdominal wall. She underwent surgical incision and drainage, and that evening she left AGAINST MEDICAL ADVICE. She presents 4 days later saying that she regrets doing that, she wishes to seek treatment and get this taken care of. She was prescribed antibiotics even though she left, she admits that she did not fill it and has not been taking anything recommended to her, nor has she been caring for herself or the wound. The packing that was in the wound postoperatively she states has been left alone and she has not done anything with it. She has continued to have small amount of discharge from the wound. This is the first time she has seen anybody since leaving the hospital to get this addressed. She is not feeling well overall but denies any fevers or chills. She does have some polydipsia and polyuria, states that she is supposed to be on insulin for her type 2 diabetes, but has not taken any insulin since probably June, and states she does not check her blood sugars. She states she does not have a doctor. She recently lived in [place] but came back here, she has a lot of social issues going on right now. She states she was living with a cousin but there was another person in the house who she did not feel comfortable with so she left and went to live with her ex- which is where she is now, he is not here with her. She states she agrees she needs to find a doctor here but has not tried yet. She agrees that she has basically not been taking care of herself and is regretful about it. [facility] Medical History Hypertension Neuropathy Diabetes Sarcoidosis Home Medications ?Medication ?Instructions ?Recorded ?Last Taken ?Type buspirone 10 mg tablet 10 mg PO TID 07/19/13 Unknown History sulfamethoxazole 800 1 tab PO BID 10 days #20 tabs 11/17/23 Unknown Rx mg-trimethoprim 160 mg tablet Allergy/AdvReac Type Severity Reaction Status Date / Time aspirin AdvReac Other Verified 11/17/23 05:38 hydromorphone (From Dilaudid) AdvReac Other Verified 11/17/23 05:38 pseudoephedrine HCl (From AdvReac Other Verified 11/17/23 05:38 Sudafed) Surgical History Hx of brain surgery Hx of appendectomy Hx of section Hx of total adrenalectomy Social History Smoking Status: Current some day smoker tobacco type: cigarettes ROS ROS ED Constitutional Constitutional ED: Reports malaise; Denies chills or fever(s) Eyes Eyes: Denies change in vision or diplopia ENT ENT ED: Denies rhinorrhea or sore throat Cardiovascular Cardiovascular: Denies chest pain or palpitations Respiratory/Chest Respiratory/Chest: Denies cough or dyspnea Gastrointestinal Gastrointestinal: Reports as per HPI and abdominal pain; Denies diarrhea, nausea or vomiting Genitourinary Genitourinary ED: Denies dysuria or hematuria Musculoskeletal Musculoskeletal: Denies back pain or neck pain Integumentary Reports as per HPI and abscess Neurologic Neurologic: Denies headache(s), paresthesias or weakness Psychiatric Psychiatric: Reports anxiety; Denies suicidal thoughts EXAM Physical Exam Const Vital Signs: 11/17/23 05:32 11/17/23 05:35 Temperature 96.8 F L 96.8 F L Temperature Source Temporal Temporal Pulse Rate 94 92 Respiratory Rate 18 18 Blood Pressure 129/68 H 129/68 H Blood Pressure Mean 88 88 Pulse Ox 97 95 Oxygen Delivery Method Room Air Room Air Positive well nourished and well developed General Appearance ED: well developed and NAD HEENT Reports moist mucous membranes normocephalic and atraumatic Eyes PERRL and EOMs intact bilaterally Neck full ROM and supple Resp normal respiratory effort and clear to auscultation bilaterally Cardio regular rate, regular rhythm and no murmurs GI non-distended GI Narrative: Open abscess left upper quadrant lateral abdominal wall, there is iodoform strip gauze packed in the wound but half of it is hanging out and down the patient side. There is no active drainage but there is some serous discharge within the open wound. There is mild amount of surrounding cellulitis. The wound and the surrounding area are extremely tender. Auscultation: normoactive bowel sounds Palpation: soft Back/Spine no CVA tenderness General Back: other FROM Extremity normal to inspection General Extremety ED: Negative for edema, pulses abnormal or tenderness General Extremity: Negative for edema or pulses abnormal Neuro oriented x3, CN's II-XII intact bilaterally and no sensory deficits noted Sensorium / Orientation: awake and alert Motor Exam: strength 5/5 throughout Skin no rashes or lesions noted and no wounds MDM MDM MDM Narrative Medical decision making narrative: I am obtaining labs, providing the patient with empiric vancomycin after reviewing the culture results from her surgery showing MRSA sensitive to vanc omycin, and we gave her IV morphine prior to changing the gauze packing which I did myself. I reviewed her labs. Her blood sugars in the 380s, she does not have a leukocytosis, and I do not see any clinical evidence of extension of this abscess/wound. As noted below, the tissue inside appears to be well-perfused and viable, I think she is just going to need wound care. Patient presents Saturday when there is no social work here at this time and resources for social determinants of care are relatively limited. We will leave a message for social work to follow-up with her and see if there is anything they can offer. Patient states she will get the prescription filled she already has it. I spoke with Dr. Edwards who was on for surgery, covering for colleague Dr. Simeon who did this surgery on her. She states typically they would have the patient follow-up in the office within a week of the procedure, and they would typically do their own wound care there. She agrees with making sure the patient has Bactrim for 10 days. I am not able to tell if she was prescribed 10 days worth so I gave her a new prescription just in case. I think she can go home, surgery is in agreement. Social work to see if they can help when they are here later. Patient was given morphine and has to drive home so she will be monitored here until nursing is comfortable letting her go and drive. This will be approximately 4 hours. I reinforced the importance of the patient getting the prescription for the antibiotic and taking until completed. She is in agreement and insightful into her social problems and issues. Additionally she is referred to the next doctor on the unassigned list, Dr. Mccloud. History & Record Review Additional record(s) reviewed:: Prior inpatient record and Prior labs (Wound culture: MRSA; reviewed preoperative CT imaging and report) Lab Data Attestation: I reviewed the patient's lab results. Labs: Laboratory Results - last 24 hr 11/17/23 06:00 WBC 7.4 RBC 5.32 Hgb 15.5 H Hct 47.5 H MCV 89.3 MCH 29.1 MCHC 32.6 RDW Std Deviation 42.3 RDW Coeff of Cele 13.0 Plt Count 292 MPV 10.5 Immature Gran % (Auto) 2.700 H Neut % (Auto) 60.8 Lymph % (Auto) 19.7 [place] % (Auto) 12.0 H Eos % (Auto) 3.2 Baso % (Auto) 1.6 H Absolute Neuts (auto) 4.5 Absolute Lymphs (auto) 1.46 Nucleated RBC % 0 Sodium 141 Potassium 3.4 L Chloride 104 Carbon Dioxide 32.0 Anion Gap 5 BUN 9 Creatinine 0.63 Estim Creat Clear Calc 92.93 Est GFR (MDRD) Af Amer 126 Est GFR (MDRD) Non-Af 104 BUN/Creatinine Ratio 14.2 Glucose 383 H Calcium 9.1 lactate - 1.7, nml Management Discussion w/another healthcare provider: Rag Baler (Surgery Dr. Edwards) Procedures Other Procedures Procedure(s): Wound care: After providing IV morphine, I remove the gauze from the left flank/abdominal wall wound, irrigated the wound profusely with 150 cc sterile saline, and repacked the wound with sterile iodoform half-inch gauze, gently pushing the gauze into deep caudal pocket of abscess with a cotton tip swab. The strip gauze was placed into the rest of the abscess cavity. The tissue appears to be well-perfused and without evidence of necrosis. Dressed with ABD pad and gauze. Tolerated well no complications. Discharge Plan Triage Chief Complaint: Wound Check ED Provider: Pierce Signleton Dx/Rx/DC Orders Clinical Impression: Abdominal wall abscess, Noncompliance with medication regimen, Hyperglycemia due to type 2 diabetes mellitus, Encounter for wound re-check, MRSA infection Instructions: High Blood Sugar (Hyperglycemia), ED Abscess Incision And Drainage Prescriptions: Continued buspirone 10 MG tablet 10 mg PO TID Changed sulfamethoxazole-trimethoprim 800-160 mg tablet 1 tab PO BID 10 Days Qty: 20 0RF Patient Comments: TAKE 1 TABLET BY MOUTH 2sTIMES A DAYte Primary Care Provider: JP PENA Referrals: Kristen Mccloud MD [Med Staff - Child And Family Services Worker] - (for primary care -- follow up) Jose Simeon MD [Med Staff - Active Staff] - As soon as possible (call saturday for appt) Activity Restrictions/Additional Instructions: Call surgery office to have follow-up with soon as possible, they will change your gauze and instruct you further from there. Okay to change the pad/gauze over top of it as needed, at least daily if there is any discharge on it. Follow-up with the primary care doctor above in order to have your diabetes addressed and your medications ironed out. Print Language: Sinhala Disposition Disposition: Home, Self Care
[2023-11-17] MEDS: Ondansetron 4 MG/2 ML Vial IV (06:04)
[2023-11-17] MEDS: Morphine 4 MG/ML Syringe IV (06:04)
[2023-11-17 06:12] LABS: Absolute Lymphocyte Count 1.46 X10^3/uL (0.83-4.51); Absolute Neutrophil Count 4.5 X10^3/uL (2.0-7.7); Basophil# 0.12 X10^3/uL; Basophil% 1.6 % (0-1); Eosinophil# 0.24 X10^3/uL; Eosinophils% 3.2 % (0-5); Hematocrit 47.5 % (37-47); Hemoglobin 15.5 g/dL (12.0-15.0); Lymphocyte # 1.46 X10^3/ul (0.83-4.51); Lymphocyte % 19.7 % (19-41); Mean Corp Hgb Conc 32.6 g/dL (32-36); Mean Corpuscular Hgb 29.1 pg (27.0-32.0); Mean Corpuscular Volume 89.3 fL (81-99); Mean Platelet Vol. 10.5 fl (6.2-12.0); Monocyte# 0.89 X10^3/uL; NRBC Flagged by Analyzer 0 % (0-5); Neutrophil # 4.52 X10^3/uL (2.7-7.7); Neutrophil % 60.8 % (47-70); Platelet Count 292 K/mm3 (150-450); RBC Distribution Width SD 42.3 fl (35.1-43.9); Red Blood Count 5.32 M/mm3 (4.2-5.4); White Blood Count 7.4 K/mm3 (4.4-11.0)
[2023-11-17] MEDS: Vancomycin IV 1,000 MG/200 ML BAG 200 MG IV (06:14)
[2023-11-17 06:26] LABS: Anion Gap 5 (5-15); BUN 9 mg/dL (7-18); BUN/Creat Ratio 14.2 RATIO (10-20); Calcium,Total 9.1 mg/dL (8.5-10.1); Chloride 104 mmol/L (98-107); Creatinine, Serum 0.63 mg/dL (0.55-1.02); EST Glomerular Filtration Rate 104 mL/min (>60); Est Glom Filt Rate - Afr Amer 126 mL/min (>60); Estimated Creatinine Clearance 92.93 ml/min; Glucose 383 mg/dL (74-106); Potassium 3.4 mmol/L (3.5-5.1); Sodium Level 141 mmol/L (136-145)
[2023-11-17] MEDS: 0.9% Normal Saline (1000mL) 1,000 ML 999 ML IV (06:30)
[2023-11-17 06:43] LABS: Bedside Glucose 345 mg/dL (74-106)
[2023-11-17] MEDS: Insulin Lispro 100 UNIT/ML INSULN.PEN 16 UNIT SC (06:50)
[2023-11-17 06:52] LABS: Lactic Acid 1.7 mmol/L (0.4-1.9)
[2023-11-17 07:30] VITALS: BP 108/60; PULSE 74; RESP 17; O2SAT 94
[2023-11-17 07:52] VITALS: BP 110/72; PULSE 71; RESP 17; TEMP 36.6; O2SAT 94
== END 2023-11-17 07:54 | disposition home or self-care (01) ==
PROVIDERS: Emergency Provider Emergency Medicine; Visit Provider Emergency Medicine
DX: L02.211 Cutaneous abscess of abdominal wall (principal); E11.65 Type 2 diabetes mellitus with hyperglycemia; E11.40 Type 2 diabetes mellitus with diabetic neuropathy, unspecified; Z91.148 Patient's other noncompliance with medication regimen for other reason; B95.62 Methicillin resistant Staphylococcus aureus infection as the cause of diseases classified elsewhere; I10 Essential (primary) hypertension; T38.3X6A Underdosing of insulin and oral hypoglycemic [antidiabetic] drugs, initial encounter; D86.9 Sarcoidosis, unspecified; F17.210 Nicotine dependence, cigarettes, uncomplicated
CPT/HCPCS: 80048; 82962; 83605; 85025; 96365; 96375; 99283; J7030; J7050; A4216; J2405

== ENCOUNTER 2023-11-21 11:00 | Emergency (ER) | payer MEDICARE, MEDICAID, SELFPAY ==
[2023-11-21 11:01] VITALS: BP 139/97; PULSE 91; RESP 14; TEMP 36.6; O2SAT 99; BMI 23.7
[2023-11-21 11:02] VITALS: BP 139/97; PULSE 91; RESP 14; TEMP 36.6; O2SAT 99
--- NOTE | 2023-11-21 11:21 | EX.ED.DYSGE1 ---
HPI History of Present Illness Chief Complaint: Wound Detail of Chief Complaint: Wound check Informant: patient Narrative Narrative: Patient presents to the emergency department complaint of a wound to her left lower abdomen. Patient states that she was admitted and had surgery for an abdominal wall abscess 8 days ago. Patient apparently left that evening AGAINST MEDICAL ADVICE and did not fill her prescriptions. Patient has been seen for same wound check type complaint about 4 days ago. She was represcribed Bactrim. Patient states that her packing fell out last evening. She complains of pain to the area. She denies fever but she has had some chills. PFSH PFS Medical History Hypertension Neuropathy Diabetes Sarcoidosis Home Medications ?Medication ?Instructions ?Recorded ?Last Taken ?Type buspirone 10 mg tablet 10 mg PO TID 07/19/13 Unknown History sulfamethoxazole 800 1 tab PO BID 10 days #20 tabs 11/17/23 Unknown Rx mg-trimethoprim 160 mg tablet Allergy/AdvReac Type Severity Reaction Status Date / Time aspirin AdvReac Other Verified 11/21/23 11:00 hydromorphone (From Dilaudid) AdvReac Other Verified 11/21/23 11:00 pseudoephedrine HCl (From AdvReac Other Verified 11/21/23 11:00 Sudafed) Surgical History Hx of brain surgery Hx of appendectomy Hx of section Hx of total adrenalectomy Social History Smoking Status: Current some day smoker tobacco type: cigarettes ROS ROS ED Review of Systems ROS Unobtainable: other Constitutional Constitutional ED: Reports lethargy; Denies chills, fever(s), sweats or weight loss Eyes Eyes: Denies blurry vision, change in vision or diplopia ENT ENT ED: Denies rhinorrhea or sore throat Cardiovascular Cardiovascular: Denies chest pain, orthopnea or racing heartbeat Respiratory/Chest Respiratory/Chest: Denies cough, dyspnea, dyspnea on exertion, orthopnea or sputum Gastrointestinal Gastrointestinal: Reports abdominal pain; Denies diarrhea, nausea or vomiting Genitourinary Genitourinary ED: Denies dysuria, hematuria or urinary frequency Musculoskeletal Musculoskeletal: Denies arthralgias, back pain, myalgias or neck pain Integumentary Denies abscess, Abrasions or rash Neurologic Neurologic: Denies headache(s) or weakness Psychiatric Psychiatric: Denies anxiety, depression or suicidal thoughts Endocrine Endocrinology: Denies polydipsia, polyphagia or polyuria Hematologic/Lymphatic Hematologic/Lymphatic: Denies easy bleeding, easy bruising or lymphadenopathy Allergic/Immunologic Allergic/Immunologic ED: Denies mouth swelling, tongue swelling or urticaria EXAM Physical Exam Const Vital Signs: 11/21/23 11:01 11/21/23 11:02 Temperature 98 F 98 F Temperature Source Temporal Temporal Pulse Rate 91 91 Respiratory Rate 14 14 Blood Pressure 139/97 H 139/97 H Blood Pressure Mean 111 111 Pulse Ox 99 99 Oxygen Delivery Method Room Air Room Air Positive well nourished and well developed General Appearance ED: well developed and NAD HEENT Reports TM's clear and moist mucous membranes normocephalic and atraumatic; Negative for trauma or tenderness Tympanic Membrane ED: Yes TM's clear Eyes PERRL and EOMs intact bilaterally General Eye ED: Negative for pale conjunctiva or scleral icterus Neck no lymphadenopathy, supple and no JVD General: Negative for tenderness Chest Wall inspection of chest normal and palpation of chest normal Chest: Negative for tenderness Resp normal respiratory effort and clear to auscultation bilaterally Effort and Inspection: Negative for respiratory distress or pain with movement Auscultation: Negative for rhonchi, wheezes or diminished lung sounds Cardio regular rate, regular rhythm, S1 normal heart sound, S2 normal heart sound and no murmurs Peripheral Pulses: pulses 2+ throughout GI normal to inspection, nondistended, normoactive bowel sounds, soft to palpation, non-distended and no masses GI Narrative: Patient has a wound to the left lower quadrant abdominal wall that appears clean without signs of infection. No cellulitic changes. The wound still open but not have any significant drainage. She has mild diffuse tenderness on exam. Back/Spine no CVA tenderness and no thoracic nor lumbar tenderness Extremity normal to inspection General Extremety ED: Negative for edema General Extremity: Negative for edema Neuro oriented x3, CN's II-XII intact bilaterally, no sensory deficits noted and gait normal Sensorium / Orientation: awake, alert, oriented to person, oriented to place and oriented to time Motor Exam: strength 5/5 throughout and strength abnormal Psych mental status grossly normal Skin no rashes or lesions noted and no wounds MDM MDM MDM Narrative Medical decision making narrative: Patient presents with left lower abdomen pain related to recent incision and drainage of abdominal wall abscess. After her I&D apparently left the hospital AGAINST MEDICAL ADVICE and then had a visit about 4 days ago to the ER where her workup was unremarkable and again was started on Bactrim. Patient clinically looks well and vital signs are stable. The incision site looks good without any significant purulent drainage erythema or cellulitic changes. No fluctuance. IV line established. She was medicated with Toradol. She does have history of drug abuse but states she has been clean from crack cocaine for the last 3 days. CBC with differential obtained showing a 4.8 with hemoglobin 15.5 and platelet count of 228. Chemistries were unremarkable. CT scan of the abdomen pelvis with IV contrast showed decreased cellulitic changes over the area where the abscess was without any evidence of abscess. At this point patient will be discharged to home. She is advised to finish her antibiotic and referred back to the surgeon that did the incision and drainage Dr. Simeon for follow-up within the next 3 to 5 days. Patient advised to use ibuprofen or Tylenol for discomfort. She is advised to return if increasing pain, redness, swelling, fever, or condition show worsening right Lab Data Labs: Laboratory Results - last 24 hr 11/21/23 11:31 WBC 4.8 RBC 5.37 Hgb 15.5 H Hct 47.0 MCV 87.5 MCH 28.9 MCHC 33.0 RDW Std Deviation 42.0 RDW Coeff of Cele 13.2 Plt Count 228 MPV 9.9 Immature Gran % (Auto) 1.500 H Neut % (Auto) 61.9 Lymph % (Auto) 23.4 [place] % (Auto) 8.6 Eos % (Auto) 3.3 Baso % (Auto) 1.3 H Absolute Neuts (auto) 3.0 Absolute Lymphs (auto) 1.12 Nucleated RBC % 0 Sodium 141 Potassium 3.2 L Chloride 105 Carbon Dioxide 33.0 H Anion Gap 3 L BUN 5 L Creatinine 0.41 L Estim Creat Clear Calc 142.79 Est GFR (MDRD) Af Amer 209 Est GFR (MDRD) Non-Af 172 BUN/Creatinine Ratio 12.2 Glucose 358 H Calcium 8.7 Radiography Diagnostic Testing: Clinical Impression(s) from Imaging Studies Abdomen/Pelvis CT 11/21/23 12:06 IMPRESSION: Decreased cellulitis in the subcutaneous soft tissues of the left lower quadrant. No abscess. Trace ascites. Electronically Signed: Sindhu Farfan MD at 13:01 EDT , Discharge Plan Triage Chief Complaint: Wound ED Provider: China Kumar Dx/Rx/DC Orders Clinical Impression: Encounter for post surgical wound check Instructions: ED Wound Care Prescriptions: No Action buspirone 10 MG tablet 10 mg PO TID sulfamethoxazole-trimethoprim 800-160 mg tablet 1 tab PO BID 10 Days Qty: 20 0RF Patient Comments: TAKE 1 TABLET BY MOUTH 2sTIMES A DAYte Primary Care Provider: JP PENA Referrals: JP PENA [Other] Jose Simeon MD [Med Staff - Active Staff] - 3-5 Days Print Language: Icelandic Disposition Disposition: Home, Self Care
[2023-11-21] MEDS: 0.9% Normal Saline (1000mL) 1,000 ML 150 ML IV (11:25)
[2023-11-21] MEDS: Ketorolac 15 MG/ML Vial IV (11:25)
[2023-11-21 11:40] LABS: Absolute Lymphocyte Count 1.12 X10^3/uL (0.83-4.51); Basophil# 0.06 X10^3/uL; Basophil% 1.3 % (0-1); Eosinophil# 0.16 X10^3/uL; Eosinophils% 3.3 % (0-5); Hemoglobin 15.5 g/dL (12.0-15.0); Lymphocyte # 1.12 X10^3/ul (0.83-4.51); Lymphocyte % 23.4 % (19-41); Mean Corpuscular Hgb 28.9 pg (27.0-32.0); Mean Corpuscular Volume 87.5 fL (81-99); Mean Platelet Vol. 9.9 fl (6.2-12.0); Monocyte# 0.41 X10^3/uL; Monocyte% 8.6 % (0-10); NRBC Flagged by Analyzer 0 % (0-5); Neutrophil # 2.97 X10^3/uL (2.7-7.7); Neutrophil % 61.9 % (47-70); Platelet Count 228 K/mm3 (150-450); RBC Distribution Width CV 13.2 % (11.6-14.6); Red Blood Count 5.37 M/mm3 (4.2-5.4); White Blood Count 4.8 K/mm3 (4.4-11.0)
[2023-11-21 11:54] LABS: Anion Gap 3 (5-15); BUN 5 mg/dL (7-18); BUN/Creat Ratio 12.2 RATIO (10-20); Calcium,Total 8.7 mg/dL (8.5-10.1); Chloride 105 mmol/L (98-107); Creatinine, Serum 0.41 mg/dL (0.55-1.02); EST Glomerular Filtration Rate 172 mL/min (>60); Est Glom Filt Rate - Afr Amer 209 mL/min (>60); Estimated Creatinine Clearance 142.79 ml/min; Glucose 358 mg/dL (74-106); Potassium 3.2 mmol/L (3.5-5.1); Sodium Level 141 mmol/L (136-145)
--- NOTE | 2023-11-21 12:06 | CT_ITS ---
HISTORY: LLQ abdominal wound post I D. TECHNIQUE: Helically acquired images were obtained of the abdomen and pelvis after the intravenous administration of 100mL Isovue-300. A radiation dose optimization technique was used for this scan. 443 images. COMPARISON: 11/11/2023. FINDINGS: LOWER CHEST: 3 mm right lower lobe nodules again seen. BOWEL: Bowel nondilated. Appendix not visualized. Large amount of stool throughout the colon. PERITONEUM: Very mild fluid in the abdomen and pelvis. LIVER: Heterogeneous liver with nodular contour, likely cirrhosis, again seen. Small varices. GALLBLADDER/BILIARY TREE: Cholecystectomy. SPLEEN: Mild splenomegaly. PANCREAS/ADRENAL GLANDS: Unremarkable. KIDNEYS: Small right renal cyst and a 2 mm nonobstructing right renal calculus again seen. VESSELS: No abdominal aortic aneurysm. Mild atherosclerosis. PELVIC ORGANS: Diminutive or surgically absent uterus. ABDOMINAL WALL: Small subcutaneous wound over the left lower quadrant decreased stranding and no rim-enhancing fluid collection BONES: Degenerative change. CT/Abdomen/Pelvis W IV Cont ONLY IMPRESSION: Decreased cellulitis in the subcutaneous soft tissues of the left lower quadrant. No abscess. Trace ascites. Electronically Signed: Sindhu Farfan MD at 13:01 EDT ,
[2023-11-21] MEDS: Potassium Chloride Oral Tablet 20 MEQ 40 MEQ PO (12:24)
[2023-11-21 13:14] VITALS: BP 129/76; PULSE 98; RESP 14; TEMP 36.1; O2SAT 98
== END 2023-11-21 13:17 | disposition home or self-care (01) ==
PROVIDERS: Emergency Provider Emergency Medicine; Visit Provider Emergency Medicine
DX: Z48.01 Encounter for change or removal of surgical wound dressing (principal)
CPT/HCPCS: 74177; 80048; 85025; 96374; 99282; J7030; Q9967; A4216

== ENCOUNTER 2024-02-08 05:03 | Observation (INO) | payer MEDICARE, MEDICAID, SELFPAY ==
[2024-02-08] VITALS (12 sets, daily range): BP systolic 110–131; BP diastolic 60–82; PULSE 89–115; RESP 16–18; TEMP 36.6–36.9; O2SAT 93–98; BMI 24.1; BMI 23.6
[2024-02-08] MEDS: Morphine 4 MG/ML Syringe IV (05:27)
[2024-02-08] MEDS: Ondansetron 4 MG/2 ML Vial IV ×2 (05:27→11:14)
--- NOTE | 2024-02-08 05:30 | RAD_ITS ---
STUDY: X-RAY - RIGHT FOOT CLINICAL: Female, 53 years old. Infection. Diabetic ulcer ? osteo TECHNIQUE: 3 view(s) of the foot. COMPARISON: None. FINDINGS: Normal talus. There are plantar and dorsal spurs of the calcaneus. Normal visualized subtalar, talonavicular, calcaneocuboid, tarsal and tarsometatarsal articulations. Normal metatarsi. Normal metatarsophalangeal joint of the great toe. Normal tibial and fibular sesamoid bones. Normal interphalangeal joint of the great toe. Normal phalanges of the great toe. Normal second through fifth metatarsophalangeal joints. Normal interphalangeal joints of the lesser toes. There is acute fracture of the medial base of the fifth proximal phalanx. The soft tissue structures are unremarkable. RAD/Foot min 3 Views IMPRESSION: Fracture of the base of the fifth toe. Electronically Signed: Pierce Alvarez MD at 8:36 EDT ,
[2024-02-08 05:39] LABS: Absolute Lymphocyte Count 2.81 X10^3/uL (0.83-4.51); Absolute Neutrophil Count 5.8 X10^3/uL (2.0-7.7); Basophil# 0.08 X10^3/uL; Basophil% 0.8 % (0-1); Eosinophil# 0.09 X10^3/uL; Eosinophils% 0.9 % (0-5); Hematocrit 42.6 % (37-47); Hemoglobin 14.7 g/dL (12.0-15.0); Lymphocyte # 2.81 X10^3/ul (0.83-4.51); Lymphocyte % 28.6 % (19-41); Mean Corp Hgb Conc 34.5 g/dL (32-36); Mean Corpuscular Hgb 29.2 pg (27.0-32.0); Mean Corpuscular Volume 84.7 fL (81-99); Mean Platelet Vol. 10.6 fl (6.2-12.0); Monocyte# 0.91 X10^3/uL; Monocyte% 9.3 % (0-10); NRBC Flagged by Analyzer 0 % (0-5); Neutrophil % 59.1 % (47-70); Platelet Count 269 K/mm3 (150-450); RBC Distribution Width SD 36.4 fl (35.1-43.9); Red Blood Count 5.03 M/mm3 (4.2-5.4); White Blood Count 9.8 K/mm3 (4.4-11.0)
[2024-02-08] MEDS: Piperacil/Tazobactam 3.375 GM in 0.9% Normal Saline (50mL MB+) 50 ML IV ×3 (05:43→22:46)
[2024-02-08 05:44] LABS: Anion Gap 7 (5-15); BUN 20 mg/dL (7-18); BUN/Creat Ratio 31.8 RATIO (10-20); CRP 3.31 mg/L (0.0-3.0); Calcium,Total 9.1 mg/dL (8.5-10.1); Chloride 102 mmol/L (98-107); Creatinine, Serum 0.63 mg/dL (0.55-1.02); EST Glomerular Filtration Rate 105 mL/min (>60); Est Glom Filt Rate - Afr Amer 127 mL/min (>60); Estimated Creatinine Clearance 92.93 ml/min; Glucose 402 mg/dL (74-106); Potassium 3.6 mmol/L (3.5-5.1); Sodium Level 134 mmol/L (136-145)
[2024-02-08 05:47] LABS: Lactic Acid 1.1 mmol/L (0.4-1.9)
[2024-02-08 05:51] LABS: Erythrocyte Sedimentation Rate 7 mm/hr (0-30)
[2024-02-08 05:54] LABS: Procalcitonin 0.18 ng/mL (0.00-0.09)
--- NOTE | 2024-02-08 06:08 | HP.PCM.HOS_ITS ---
[facility] - General General Date of Admission: 02/08/24 Date of Service: 02/08/24 Chief Complaint: Worsening Right Foot Infection after Running Out of Insulin [place]. HPI Narrative ANA CRISTINA THOMAS, is a 53 F with a past medical history of tobacco abuse, history of HEBER, DM-2; uncontrolled with hyperglycemia, diabetic neuropathy, history of sarcoidosis, GERD, history of brain surgery, history of cocaine abuse, bipolar disorder, history of suicide attempt via intentional drug overdose, history of perirectal abscess, history of Right total adrenalectomy, history of appendectomy, remote history of , OA; with low back pain, history of cellulitis with a large Left lower abdominal wall abscess admitted here from 11/11/2023 to 11/14/2023 that was complicated by medical noncompliance with patient then leaving this hospital AMA and then also not getting her prescriptions filled and recently diagnosed Cellulitis of the Right Foot ~3 weeks ago at another local hospital who presents to [facility] ER complaining of worsening Right foot infection. Ms. Thomas reports her symptoms began ~1-2 weeks prior to admission when she ran out of her insulin needles which seemed to cause her Right foot infection to worsen since that time. She states she has been took her antibiotics (Augmentin and Doxycycline) as prescribed - which she allegedly finished ~1 week ago but she has noticed subsequent worsening of her Right foot with increased redness and swelling along with an ulcer on the bottom of the second toe of her Right foot and red streaks going up the leg. She denies pain or difficulty walking associated with her infection - but she does admit to increasing Right foot pain and paresthesias. She also denies related fever, chills, nausea, vomiting, diarrhea, constipation, dysuria, chest pain, SOB or headache. In the ER she was diagnosed with Cellulitis of the Right Foot with an accompanying DFU of the second toe of the Right Foot attributable to Medical Noncompliance with her insulin and suspected Failure of Outpatient Antibiotic Treatment and she was then admitted to the general medical floor for ongoing care for a stay that is expected to extend beyond 2 midnights. [facility] Medical History (Updated 02/08/24 @ 06:[address] Vicente Mao, DO) Failure of outpatient treatment Abnormal EKG Preoperative cardiovascular examination Abdominal wall abscess Hypertension Neuropathy Diabetes Sarcoidosis Home Medications ?Medication ?Instructions ?Recorded ?Last Taken ?Type buspirone 10 mg tablet 10 mg PO TID 07/19/13 Unknown History aripiprazole 5 mg tablet mg PO 02/08/24 Unknown History doxepin 25 mg capsule 25 mg PO QHS 02/08/24 Unknown History hydroxyzine pamoate 25 mg capsule 50 mg PO TID 02/08/24 Unknown History (Vistaril) hydroxyzine pamoate 50 mg capsule 50 mg PO TID 02/08/24 Unknown History insulin glargine 100 unit/mL (3 unit subcut 02/08/24 Unknown History mL) subcutaneous pen (Lantus Solostar U-100 Insulin) insulin lispro 100 unit/mL subcut 02/08/24 Unknown History subcutaneous pen lamotrigine 25 mg tablet 25 mg PO DAILY 02/08/24 Unknown History methocarbamol 750 mg tablet 750 mg PO Q6H PRN PRN muscle 02/08/24 Unknown History relaxer omeprazole 40 mg capsule,delayed 40 mg PO DAILY 02/08/24 Unknown History release quetiapine 100 mg tablet 100 mg PO DAILY 02/08/24 Unknown History quetiapine 200 mg tablet 200 mg PO QHS 02/08/24 Unknown History Allergy/AdvReac Type Severity Reaction Status Date / Time aspirin AdvReac Other Verified 02/08/24 05:04 hydromorphone (From Dilaudid) AdvReac Other Verified 02/08/24 05:04 pseudoephedrine HCl (From AdvReac Other Verified 02/08/24 05:04 Sudafed) Surgical History Hx of brain surgery Hx of appendectomy Hx of section Hx of total adrenalectomy Social History Smoking Status: Current every day smoker tobacco type: cigarettes ROS ROS Narrative Review of Systems: Constitutional: Patient denies fever or chills. Eyes: Patient denies changes in vision or discharge from eyes. ENT: Patient denies runny nose, sore throat or ear pain. Resp: Patient denies SOB or cough. CV: Patient denies chest pain, palpitations or heart racing. GI: Patient denies abdominal pain, nausea, vomiting, diarrhea or constipation. : Patient denies dysuria or hematuria. MSK: Patient admits to pain in Right foot. Skin: Patient admits to increasing redness and swelling of the Right foot with ulcer on the bottom of her second toe. Psych: Patient denies symptoms of uncontrolled depression or anxiety. Neuro: Patient admits to paresthesias of the Right foot but she denies headache or focal neurologic deficits. Allergy: Patient denies lip swelling, tongue swelling or urticaria. Hematology: Patient denies easy bleeding or easy bruisability. Endocrinology: Patient admits to mild polyuria but she denies polydipsia or polyphagia. 14 point ROS otherwise negative except for positives noted above in HPI. Vital Signs Vital Signs Vital Signs: 02/08/24 05:05 02/08/24 05:08 02/08/24 06:08 Temperature 98.5 F 98.5 F 98.3 F Temperature Source Oral Oral Oral Pulse Rate 115 H 115 H 107 H Respiratory Rate 18 18 18 Blood Pressure 114/66 114/66 110/65 Blood Pressure Mean 82 82 80 Pulse Ox 97 97 93 Oxygen Delivery Method Room Air Room Air Room Air Weight Weight: 145 lb 4.554 oz Body Mass Index (BMI) 24.1 Physical Exam Const alert, oriented x3, no apparent distress and average body habitus General Appearance: cooperative HEENT normocephalic, head/scalp atraumatic, hearing grossly normal bilaterally and moist oral mucous membranes Eyes PERRL and EOMs intact bilaterally Neck no lymphadenopathy and supple Resp normal respiratory effort, no retractions, no use of accessory muscles and clear to auscultation bilaterally Cardio regular rate and regular rhythm GI normal to inspection, nondistended, normoactive bowel sounds, soft to palpation, non-tender and non-distended Extremity Extremity Narrative: Erythema of the Right Foot with Edema and generalized TTP with an ~ 1 cm skin- deep ulcer on the base and plantar aspect of the second toe with sloughing of surrounding skin and lymphangitic streaking up the anterior aspect of the Right tobias with no signs of vascular compromise. Skin Skin Narrative: Erythema of the Right Foot with Edema and generalized TTP with an ~ 1 cm skin- deep ulcer on the plantar aspect of the second toe with sloughing of surrounding skin and lymphangitic streaking up the anterior aspect of the Right tobias with no signs of vascular compromise. Neuro oriented x3, CN's II-XII intact bilaterally, moves all extremities and no focal motor deficits Sensorium / Orientation: awake, alert, oriented to person, oriented to place and oriented to time Speech: speech normal Psych affect normal Results Medical Records Data Attestation: I reviewed the patient's medical records Lab / Micro Data Attestation: I reviewed the patient's lab results. 02/08/24 05:14 02/08/24 05:14 Labs: Laboratory Results - last 24 hr 02/08/24 05:14: WBC 9.8, RBC 5.03, Hgb 14.7, Hct 42.6, MCV 84.7, MCH 29.2, MCHC 34.5, RDW Std Deviation 36.4, RDW Coeff of [place] 12.0, Plt Count 269, MPV 10.6, I mmature Gran % (Auto) 1.300 H, Neut % (Auto) 59.1, Lymph % (Auto) 28.6, [place] % (Auto) 9.3, Eos % (Auto) 0.9, Baso % (Auto) 0.8, Absolute Neuts (auto) 5.8, Absolute Lymphs (auto) 2.81, Nucleated RBC % 0, ESR 7, Sodium 134 L, Potassium 3.6, Chloride 102, Carbon Dioxide 25.0, Anion Gap 7, BUN 20 H, Creatinine 0.63, Estim Creat Clear Calc 92.93, Est GFR (MDRD) Af Amer 127, Est GFR (MDRD) Non-Af 105, BUN/Creatinine Ratio 31.8 H, Glucose 402 H, Lactic Acid 1.1, Calcium 9.1, C -React Prot Ext Range 3.31 H, Procalcitonin 0.18 H Assessment & Plan Assessment/Plan (1) Cellulitis of foot, right: (2) Diabetic ulcer of right foot: QUALIFIERS: Diabetes mellitus type: type 2 Diabetic foot ulcer location: toe Non-pressure ulcer stage: limited to breakdown of skin Qualified Code(s): E11.621 - Type 2 diabetes mellitus with foot ulcer; L97.511 - Non- pressure chronic ulcer of other part of right foot limited to breakdown of skin (3) Failure of outpatient treatment: (4) Insulin dependent diabetes mellitus: (5) Hyperglycemia: (6) Failure of outpatient treatment: (7) Medical non-compliance: (8) Bipolar 1 disorder, depressed: (9) Tobacco dependence syndrome: (10) History of cocaine abuse: PLAN: Plan 1. Cellulitis of the Right Foot with an accompanying DFU of the second toe of the Right Foot - Admit to general medical floor. Continue empiric IV Zosyn and IV Vancomycin and await culture and sensitivity. Check MRI of the Right Foot to evaluate for possible osteomyelitis. Check MRSA PCR of wound. Give Tylenol prn for [id number] (level 1-5/10) pain or fever. Give [place] prn for severe (level 6-10/10) pain. Finally, we will consult Dr. Villagran of the podiatry service to see this patient on-rounds in the AM for further recommendations with help appreciated in advance. 2. Failure of Outpatient Antibiotic Treatment complicating #1 - Noted. 3. DM-2; uncontrolled with hyperglycemia and diabetic neuropathy worsened due to Medical Noncompliance with insulin due to running out of needles compounding #1 & #2 - Noted. Case Management will be consulted to get additional resources for this patient in an effort to prevent serial readmission. 4. History of Cellulitis with a Large Left lower abdominal wall Abscess admitted here from 11/11/2023 to 11/14/2023 that was complicated by medical noncompliance with patient then leaving this hospital AMA and then also not getting her prescriptions filled adding to the medical complexity of #1 - #3 - Noted. 5. Tobacco abuse - Tobacco Cessation will be strongly encouraged with Nicotine patch offered to control cravings. 6. History of cocaine abuse along with history of suicide attempt via intentional drug overdose - Noted. [place] UDS pending this admission to confirm suspicion of relapse. 7. Bipolar disorder - Resume home regimen as before. 8. History of HEBER - Start nocturnal CPAP. 9. History of sarcoidosis - Noted with no signs of active disease at this time. 10. GERD - Continue PPI as previous. 11. History of brain surgery - Noted. 12. History of perirectal abscess - Noted with no signs of recurrence. 13. History of Right total adrenalectomy - Noted. 14. History of appendectomy - Noted. 15. Remote history of - Noted for the sake of completeness. 16. OA; with low back pain - Give Tylenol prn. 17. DVT prophylaxis - Lovenox 40 mg sq daily. Total time: Approximately (but not less than) 75 minutes. Charges/Coding Visit Charges Inpatient E&M: 66056 Init Hosp L3
--- NOTE | 2024-02-08 06:12 | EDS_ITS ---
HPI History of Present Illness Chief Complaint: Lower Extremity Injury Informant: patient Narrative Narrative: Patient is a 53-year-old female with past medical history of insulin-dependent diabetes. She states beginning roughly 3 to 4 weeks ago she noticed a ulcer on her right foot. She states that after a few days it folic it was worsening and she was concerned about infection so she went to an outside hospital and states she was placed on doxycycline and Augmentin. She states she finished the course of treatment roughly 1 to 2 weeks ago. Despite doing this the redness swelling and pain as well as the ulcer have worsened. She states it is not difficult to walk secondary to the symptoms. She also reports that she no longer has any type of insulin needle and therefore has not been able to take her insulin to control her blood sugar. With concern the infection is progressing she presents for evaluation [facility] Medical History Abnormal EKG Preoperative cardiovascular examination Abdominal wall abscess Hypertension Neuropathy Diabetes Sarcoidosis Home Medications ?Medication ?Instructions ?Recorded ?Last Taken ?Type buspirone 10 mg tablet 10 mg PO TID 07/19/13 Unknown History aripiprazole 5 mg tablet mg PO 02/08/24 Unknown History doxepin 25 mg capsule 25 mg PO QHS 02/08/24 Unknown History hydroxyzine pamoate 25 mg capsule 50 mg PO TID 02/08/24 Unknown History (Vistaril) hydroxyzine pamoate 50 mg capsule 50 mg PO TID 02/08/24 Unknown History insulin glargine 100 unit/mL (3 unit subcut 02/08/24 Unknown History mL) subcutaneous pen (Lantus Solostar U-100 Insulin) insulin lispro 100 unit/mL subcut 02/08/24 Unknown History subcutaneous pen lamotrigine 25 mg tablet 25 mg PO DAILY 02/08/24 Unknown History methocarbamol 750 mg tablet 750 mg PO Q6H PRN PRN muscle 02/08/24 Unknown History relaxer omeprazole 40 mg capsule,delayed 40 mg PO DAILY 02/08/24 Unknown History release quetiapine 100 mg tablet 100 mg PO DAILY 02/08/24 Unknown History quetiapine 200 mg tablet 200 mg PO QHS 02/08/24 Unknown History Allergy/AdvReac Type Severity Reaction Status Date / Time aspirin AdvReac Other Verified 02/08/24 05:04 hydromorphone (From Dilaudid) AdvReac Other Verified 02/08/24 05:04 pseudoephedrine HCl (From AdvReac Other Verified 02/08/24 05:04 Sudafed) Surgical History Hx of brain surgery Hx of appendectomy Hx of section Hx of total adrenalectomy Social History Smoking Status: Current every day smoker tobacco type: cigarettes ROS ROS ED Constitutional Constitutional ED: Denies chills or fever(s) Eyes Eyes: Denies change in vision ENT ENT ED: Denies sore throat Cardiovascular Cardiovascular: Denies chest pain Respiratory/Chest Respiratory/Chest: Denies cough or dyspnea Gastrointestinal Gastrointestinal: Denies abdominal pain, diarrhea, nausea or vomiting Genitourinary Genitourinary ED: Denies dysuria Musculoskeletal Musculoskeletal: Reports other Details: Positive right foot pain Integumentary Reports other Details: Positive right foot redness swelling and ulceration Neurologic Neurologic: Reports paresthesias; Denies headache(s) Hematologic/Lymphatic Hematologic/Lymphatic: Denies easy bleeding or easy bruising EXAM Physical Exam Const Vital Signs: 02/08/24 05:05 02/08/24 05:08 02/08/24 06:08 Temperature 98.5 F 98.5 F 98.3 F Temperature Source Oral Oral Oral Pulse Rate 115 H 115 H 107 H Respiratory Rate 18 18 18 Blood Pressure 114/66 114/66 110/65 Blood Pressure Mean 82 82 80 Pulse Ox 97 97 93 Oxygen Delivery Method Room Air Room Air Room Air Positive well nourished and well developed General Appearance ED: well developed HEENT HEENT Narrative: Normocephalic atraumatic Eyes PERRL and EOMs intact bilaterally General Eye ED: Negative for scleral icterus Neck supple Neck Narrative: No nuchal rigidity or meningeal signs noted Resp normal respiratory effort and clear to auscultation bilaterally Cardio regular rhythm Rate: tachycardic and other Other Details: Tachycardic rate with regular rhythm Radial and carotid pulses are equal and symmetric GI normal to inspection, nondistended, normoactive bowel sounds, non-tender, non-distended and no masses Auscultation: normoactive bowel sounds Palpation: soft Extremity Extremity Narrative: There is a circular roughly 1 cm diameter ulcer along the plantar aspect of the right foot at the base of the second digit. The ulceration is dermal layer deep. There is surrounding sloughing of the skin. The right second digit is edematous and erythematous also with sloughing of the skin. Along the dorsum of the right foot extending out from the base of the second digit is asymmetric erythema and warmth most consistent with cellulitis. There is no obvious abscess formation. No crepitance palpated. There is lymphangitic streaking up the anterior aspect of the tobias to the middle third. Remainder of the exam is normal Neuro oriented x3 and CN's II-XII intact bilaterally Sensorium / Orientation: alert Psych mental status grossly normal Skin Skin Narrative: Soft tissue skin changes to the right foot as documented above MDM MDM MDM Narrative Medical decision making narrative: Patient arrived to the ER tachycardic but otherwise with stable vitals. She reported she has not been taking her insulin based on the fact she ran out of insulin needles. She also states she has already tried doxycycline and Augmentin without any symptom improvement. With concern she is developing osteomyelitis versus septicemia a blood culture as well as basic laboratory studies and a foot x-ray were obtained. Based on the fact she states she has not been controlling her diabetes either there is concern for DKA or HHS. The patient's anion gap is normal her bicarb is normal going against DKA. Serum osmolality is under 320 going against HHS. Her white count is normal without left shift lactic acidosis or elevation to the ESR CRP going against systemic infection. Her x-ray reveals no moth-eaten appearance to suggest osteomyelitis. However based on her uncontrolled diabetes and persistent wound and reported failure of outpatient therapy I do not feel she will do well with another outpatient course. Therefore the hospitalist was contacted and they agreed to accept the patient for continued antibiotic therapy and glucose management at this time. History & Record Review Discussion w/independent historian: Patient Lab Data Attestation: I reviewed the patient's lab results. Labs: Laboratory Results - last 24 hr 02/08/24 05:14 WBC 9.8 RBC 5.03 Hgb 14.7 Hct 42.6 MCV 84.7 MCH 29.2 MCHC 34.5 RDW Std Deviation 36.4 RDW Coeff of Cele 12.0 Plt Count 269 MPV 10.6 Immature Gran % (Auto) 1.300 H Neut % (Auto) 59.1 Lymph % (Auto) 28.6 [place] % (Auto) 9.3 Eos % (Auto) 0.9 Baso % (Auto) 0.8 Absolute Neuts (auto) 5.8 Absolute Lymphs (auto) 2.81 Nucleated RBC % 0 ESR 7 Sodium 134 L Potassium 3.6 Chloride 102 Carbon Dioxide 25.0 Anion Gap 7 BUN 20 H Creatinine 0.63 Estim Creat Clear Calc 92.93 Est GFR (MDRD) Af Amer 127 Est GFR (MDRD) Non-Af 105 BUN/Creatinine Ratio 31.8 H Glucose 402 H Lactic Acid 1.1 Calcium 9.1 C-React Prot Ext Range 3.31 H Procalcitonin 0.18 H Radiography Diagnostic Testing: X-ray of the right foot as interpreted by the emergency medicine physician reveals no gas formation no fracture or dislocation no free air or moth-eaten appearance to suggest osteomyelitis Management Discussion w/another healthcare provider: Hospitalist Discharge Plan Dx/Rx/DC Orders Clinical Impression: Insulin dependent diabetes mellitus, Hyperglycemia, Diabetic ulcer of right foot, Cellulitis of foot, right, Failure of outpatient treatment Disposition Disposition: Acute Care [facility]
[2024-02-08] MEDS: Insulin Lispro 100 UNIT/ML INSULN.PEN 15 UNIT SC (06:16)
[2024-02-08] MEDS: Vancomycin IV 1,000 MG/200 ML BAG 200 MG IV (06:38)
[2024-02-08 06:55] LABS: Amphetamine Urine NEGATIVE (<1000 ng/mL); Barbiturate Urine NEGATIVE (< 200 ng/mL); Benzodiazepine Urine NEGATIVE (< 200 ng/mL); Cocaine Urine POSITIVE (< 300 ng/mL); Ecstacy Urine NEGATIVE (< 500 ng/mL); Methadone Urine NEGATIVE (< 300 ng/mL); Opiates Urine POSITIVE (< 300 ng/mL); PCP Urine NEGATIVE (< 25 ng/mL); THC Urine NEGATIVE (< 50 ng/mL); Vista UDS pH Range 5
--- NOTE | 2024-02-08 07:41 | MRI_ITS ---
EXAM: MR RIGHT LOWER EXTREMITY WITHOUT AND WITH INTRAVENOUS CONTRAST, FOOT CLINICAL INDICATION: Right DFU. Evaluate for Osteomyelitis. TECHNIQUE: Multiplanar and multisequence MR images of the right forefoot without and with intravenous contrast. CONTRAST: 13 cc of Clariscan IV. COMPARISON: X-ray of the right foot 02/08/2024. FINDINGS: MUSCLES: Unremarkable. No edema or myositis. FLUID: Unremarkable. No joint effusion. PLANTAR FASCIA: Unremarkable. Intact. BONES/JOINTS: The fracture of the base of the 5th toe seen on the x-ray is not well visualized on the MR. Normal forefoot alignment. No bone marrow edema. No joint effusion. OTHER SOFT TISSUES: Unremarkable. MRI/Lower Ext No Joint W/WO Cont IMPRESSION: No evidence of osteomyelitis. Electronically Signed: Jose Cui MD at 1:09 EDT ,
[2024-02-08] MEDS: KCL 20MEQ in 0.9% NS 20 MEQ/1,000 ML IV.SOLN. 50 MEQ IV (07:59)
[2024-02-08] MEDS: Insulin Lispro 100 UNIT/ML INSULN.PEN SC ×4 (08:24→20:57)
[2024-02-08] MEDS: Cholecalciferol (Vit D3) 125 MCG CAPSULE (5,000 UNITS) PO (08:26)
[2024-02-08] MEDS: Zinc Sulfate 50 mg zinc (220 mg) ORAL capsule PO (08:26)
[2024-02-08] MEDS: Ascorbic Acid 500 MG Tablet 1000 MG PO ×2 (08:26→16:43)
[2024-02-08 08:38] LABS: Bedside Glucose 253 mg/dL (74-106)
--- NOTE | 2024-02-08 08:55 | PCM.RX.CS ---
Consult Antibiotic Management Pharmacy has been consulted to manage selected antibiotic: Vancomycin Type of Intervention Type of Consult: New Suspected Infection Suspected Infection: Skin/Soft tissue Labs Labs: Sodium 134 mmol/L (136-145) L 02/08/24 05:14 Potassium 3.6 mmol/L (3.5-5.1) 02/08/24 05:14 Chloride 102 mmol/L (98-107) 02/08/24 05:14 Carbon Dioxide 25.0 mmol/L (21.0-32.0) 02/08/24 05:14 Anion Gap 7 (5-15) 02/08/24 05:14 BUN 20 mg/dL (7-18) H 02/08/24 05:14 Creatinine 0.63 mg/dL (0.55-1.02) 02/08/24 05:14 Est GFR (MDRD) Af Amer 127 mL/min (>60) 02/08/24 05:14 Est GFR (MDRD) Non-Af 105 mL/min (>60) 02/08/24 05:14 BUN/Creatinine Ratio 31.8 RATIO (10-20) H 02/08/24 05:14 Glucose 402 mg/dL (74-106) H 02/08/24 05:14 Goal Trough Goal Trough: 15-20 mcg/mL Pharmacy Plan for Drug Dosing Pharmacy Plan for Drug Dosing: IV VANCOMYCIN Consulting Physician: Dr. Andersen Indication: SSTI Goal Trough: 15-20 SrCr: 0.63 CrCl: 92 mL/min Comments: patient had initial dose of 1000mg IV x1 in ED 02/08/24 @0638 Vancomycin Dose: Vancomycin 1250mg IV Q12hr to start 02/08/24 @1800 Pending Level: 02/09/24 @1730, prior to 4th total dose per protocol Pharmacy Service will continue to monitor and adjust dosing as required.
[2024-02-08 10:06] LABS: M R Staph aureus DNA By PCR POSITIVE (Negative); Probe Check PASS
--- NOTE | 2024-02-08 10:12 | CASEMGMT ---
[facility] Assessment Face to Face with patient for initial transition planning/care coordination assessment. RN DIPESH introduced self and role at [facility], pt voices understanding. Pt is A&Ox4 and is resting comfortably in bed and is calm. Care providers, pharmacy, and demographics verified. Admitting dx: Cellulitis of the Rt Foot PCP: Pt PCP listed is out of [place]. Pt given PCP list and states that she plans to call and make appts herself. Specialists:Pablito and jay out of [place]. Pt has specialist contact info and will call to make appts. Preferred Pharmacy: [facility] Insurance: [employer] D[employer] ADV, MIKO Prescription Benefit: Yes LNOK: Prabharudi Romero (Fr), Sahil Keating (Ex H) Living Arrangements: Pt is currently living with her ex- in a ground level apartment with a flat entrance ADLs/IADLs: Ind Transportation: Pt is able to drive but does not currently have a vehicle. Pt states that she takes cabs. Pt also utilizes insurance. Follow for [facility] Van needs. DME: Pt has a blood glucose monitor and sufficient supplies e/f insulin pen needs. Pt states that she needs a new Rx for these. Dr. Gasca made aware and states that she will order more. HHC/SNF: Denies history or needs Drugs/ ETOH/ Smoking: Pt drug screen + for Cocaine. Pt denies ETOH use. Pt states that she smokes 1/2 PPD of cigarettes. Pt?s goal: Home with insulin pen needles, wound supplies, and f/u at [facility] Plan: Pt states that she wishes to DC home once she is medically ready. Dr. Gasca states that the pt will be here through the weekend. Podiatry and wound RN consulted. Pt states that she is interested in attending the [facility] after DC to help care for her wound. Pt states that she usually cares for her wound herself. CM to follow and set pt up at the [facility] and ensure sufficient DM supplies and wound supplies. Zina Potter RN, CM
[2024-02-08] MEDS: Insulin Glargine-YFGN 100 UNIT/ML Pen 20 UNIT SC (11:05)
[2024-02-08] MEDS: Enoxaparin 40 MG/0.4 ML Syringe SC (11:07)
[2024-02-08] MEDS: Lactobacillis Acidophilus 1 CAP PO ×4 (11:08→22:46)
[2024-02-08] MEDS: Pantoprazole Sodium 40 MG Tablet PO (11:08)
[2024-02-08] MEDS: ARIPiprazole 5 MG Tablet PO (11:08)
[2024-02-08] MEDS: lamoTRIgine 25 MG Tablet PO (11:08)
[2024-02-08] MEDS: QUEtiapine 100 MG Tablet PO (11:09)
[2024-02-08] MEDS: 0.9% Saline Lock 10 ML Syringe IV (11:14)
[2024-02-08 11:50] LABS: Bedside Glucose 334 mg/dL (74-106)
--- NOTE | 2024-02-08 12:18 | PCM.PN.HOSP ---
Reason for Visit Reason for Visit: Worsening right foot wound Subjective Subjective Patient is a 53-year-old white female who presented to the emergency department at [facility] early on the a.m. of 02/08/2020 for complaining of a worsening right foot diabetic infection. About 3 weeks ago she was diagnosed with a lower extremity cellulitis of her right foot at an outside hospital and is now presenting here with worsening right foot infection. She reported about 2 weeks ago she ran out of her insulin needles and indicated that since she has not been taking her insulin her right foot infection has been worsening. She reported she has been taking her antibiotics and per fill history appears that they were filled. She does have a history of noncompliance. It appears she was treated with Augmentin and doxycycline for this. She reported she finished antibiotics about a week ago but since that point in time she has had worsening redness and swelling of her right foot along with the development of ulcer on the bottom of the second toe of her right foot and red streaks going up her leg. She has neuropathy so she has not had any pain or difficulty walking. She has not had any fever or chills and no other systemic symptoms. Objective Data Objective Data Vital Signs: Vital Signs Temp Pulse Resp BP Pulse Ox O2 Del Method 98.1 F 90 17 114/65 94 Room Air 02/08/24 07:04 02/08/24 07:04 02/08/24 07:04 02/08/24 07:04 02/08/24 07:04 02/08/24 07:04 Oxygen Delivery Method Room Air Weight: 64.5 kg Body Mass Index (BMI) 23.6 Intake & Output: Intake and Output for Last 24 Hours 02/06/24 02/07/24 02/08/24 23:59 23:59 23:59 Intake Total 250 / 250 Balance 250 / 250 Lab / Micro Data 02/08/24 05:14 02/08/24 05:14 Labs: Laboratory Results - last 24 hr 02/08/24 05:14: WBC 9.8, RBC 5.03, Hgb 14.7, Hct 42.6, MCV 84.7, MCH 29.2, MCHC 34.5, RDW Std Deviation 36.4, RDW Coeff of Cele 12.0, Plt Count 269, MPV 10.6, Immature Gran % (Auto) 1.300 H, Neut % (Auto) 59.1, Lymph % (Auto) 28.6, [place] % (Auto) 9.3, Eos % (Auto) 0.9, Baso % (Auto) 0.8, Absolute Neuts (auto) 5.8, Absolute Lymphs (auto) 2.81, Nucleated RBC % 0, ESR 7, Sodium 134 L, Potassium 3.6, Chloride 102, Carbon Dioxide 25.0, Anion Gap 7, BUN 20 H, Creatinine 0.63, Estim Creat Clear Calc 92.93, Est GFR (MDRD) Af Amer 127, Est GFR (MDRD) Non-Af 105, BUN/Creatinine Ratio 31.8 H, Glucose 402 H, Lactic Acid 1.1, Calcium 9.1, C-React Prot Ext Range 3.31 H, Procalcitonin 0.18 H 02/08/24 06:21: Urine Opiates Screen POSITIVE H, Urine Methadone Screen NEGATIVE, Ur Barbiturates Screen NEGATIVE, Ur Phencyclidine Scrn NEGATIVE, Ur Amphetamines Screen NEGATIVE, MDMA (Ecstasy) Screen NEGATIVE, U Benzodiazepines Scrn NEGATIVE, Urine Cocaine Screen POSITIVE H, U Cannabinoids Screen NEGATIVE, Ur Drug Screen Comment 02/08/24 08:05: POC Glucose 253 H 02/08/24 08:10: MRSA (PCR) POSITIVE H 02/08/24 11:20: POC Glucose 334 H Radiography Diagnostic Testing: Radiology Impression Foot X-Ray 02/08/24 05:30 IMPRESSION: Fracture of the base of the fifth toe. Electronically Signed: Pierce Alvarez MD at 8:36 EDT , Assessment & Plan Assessment/Plan (1) Failure of outpatient treatment: (2) Medical non-compliance: (3) Cellulitis of foot, right: (4) Diabetic ulcer of right foot: QUALIFIERS: Diabetic foot ulcer location: toe Diabetes mellitus type: type 2 Non-pressure ulcer stage: limited to breakdown of skin Qualified Code(s): E11.621 - Type 2 diabetes mellitus with foot ulcer; L97.511 - Non-pressure chronic ulcer of other part of right foot limited to breakdown of skin (5) Hyperglycemia: PLAN: Plan Right diabetic foot wound/cellulitis -Failed outpatient antibiotics as patient completed course of Augmentin and doxycycline about 1 week prior to presentation -Cultures are pending -MRSA PCR is positive -Continue vancomycin and Zosyn -Check MRI of the foot--> inflammatory markers are not severely elevated -continue as needed pain and medication as ordered -Wound care consultation to wound nurse -Podiatry consultation--> Dr. Villagran aware Uncontrolled DM-2 -Will hold off on repeat A1c as she just had 1 in October that was 11.5 -Blood sugar greater than 400 on presentation -Patient does not have insulin needles at home so I did write a prescription for this and fax it to her pharmacy today so she should have them at discharge -Will give basal insulin 20 units daily -Sliding scale ordered -Overall needs unknown due to noncompliance so we will monitor blood sugars as ordered and make adjustments as needed History of abdominal cellulitis -Patient had a large left lower abdominal wall cellulitis/abscess and was admitted here at the end of October -Left AMA at that time and then did not follow-up and get her antibiotics next-does not appear to have any acute issues at this time HEBER -Continue CPAP GERD -Continue home PPI Bipolar disorder -Continue home BuSpar -Can continue home doxepin -Continue home hydroxyzine -Continue home Lamictal -Can continue home Seroquel OA/chronic pain -As needed continue home [place] -Continue home muscle relaxant as needed History of medical noncompliance -Complicates treatment, prognosis, and outcomes -Patient has history of AMA discharges DVT prophylaxis -Lovenox subcu daily CODE STATUS -Full code
[2024-02-08] MEDS: busPIRone 5 MG Tablet 10 MG PO ×2 (13:45→22:46)
[2024-02-08] MEDS: hydrOXYzine PAM 25 MG Capsule 50 MG PO ×2 (13:45→22:45)
[2024-02-08] MEDS: FLU VACC 2024-25(6MOS UP)/PF 45 MCG/0.5 ML SYRINGE IM (16:38)
[2024-02-08] MEDS: HYDROcodone Bitartrate/Apap 5/325 Tablet PO ×2 (16:39→22:56)
[2024-02-08] MEDS: Juven (unflavored) Packet 1 PACKET PO (16:45)
[2024-02-08 17:07] LABS: Bedside Glucose 357 mg/dL (74-106)
[2024-02-08] MEDS: Vancomycin HCl 1,250 MG in 0.9% Normal Saline (250mL Bag) 250 ML 167 MG IV (18:32)
[2024-02-08] MEDS: QUEtiapine 100 MG Tablet 200 MG PO (22:45)
[2024-02-08] MEDS: Doxepin Hcl 25 MG Capsule PO (22:46)
[2024-02-08 23:39] LABS: Bedside Glucose 369 mg/dL (74-106)
[2024-02-09 02:25] VITALS: BP 108/57; PULSE 83; RESP 16; TEMP 36.7; O2SAT 99
[2024-02-09 05:37] LABS: Absolute Lymphocyte Count 1.24 X10^3/uL (0.83-4.51); Absolute Neutrophil Count 1.9 X10^3/uL (2.0-7.7); Basophil# 0.04 X10^3/uL; Eosinophils% 5.1 % (0-5); Hematocrit 38.3 % (37-47); Hemoglobin 12.6 g/dL (12.0-15.0); Lymphocyte # 1.24 X10^3/ul (0.83-4.51); Lymphocyte % 31.7 % (19-41); Mean Corp Hgb Conc 32.9 g/dL (32-36); Mean Corpuscular Hgb 28.4 pg (27.0-32.0); Mean Corpuscular Volume 86.5 fL (81-99); Mean Platelet Vol. 10.1 fl (6.2-12.0); Monocyte# 0.44 X10^3/uL; Monocyte% 11.3 % (0-10); NRBC Flagged by Analyzer 0 % (0-5); Neutrophil # 1.92 X10^3/uL (2.7-7.7); Neutrophil % 49.1 % (47-70); Platelet Count 198 K/mm3 (150-450); RBC Distribution Width CV 12.2 % (11.6-14.6); RBC Distribution Width SD 38.6 fl (35.1-43.9); Red Blood Count 4.43 M/mm3 (4.2-5.4); White Blood Count 3.9 K/mm3 (4.4-11.0)
[2024-02-09] MEDS: Piperacil/Tazobactam 3.375 GM in 0.9% Normal Saline (50mL MB+) 50 ML IV ×2 (06:07→14:50)
[2024-02-09 06:13] LABS: ALB/GLOB Ratio 0.9 RATIO (0.9-2.4); AST(SGOT) 55 U/L (15-37); Alanine Aminotransfer ALT/SGPT 111 U/L (13-56); Albumin, Serum 2.6 g/dL (3.2-5.0); Alkaline Phosphatase 161 U/L (45-117); Anion Gap 4 (5-15); BUN 13 mg/dL (7-18); BUN/Creat Ratio 23.5 RATIO (10-20); Calcium,Total 8.3 mg/dL (8.5-10.1); Chloride 106 mmol/L (98-107); Creatinine, Serum 0.55 mg/dL (0.55-1.02); EST Glomerular Filtration Rate 122 mL/min (>60); Est Glom Filt Rate - Afr Amer 147 mL/min (>60); Estimated Creatinine Clearance 106.44 ml/min; Globulin 2.9 g/dL (2.2-4.2); Glucose 381 mg/dL (74-106); Magnesium 1.9 mg/dL (1.6-2.6); Phosphorus 3.5 mg/dL (2.5-4.9); Protein, Total 5.5 g/dL (6.4-8.2); Sodium Level 136 mmol/L (136-145); Thyroid Stim Hormone (TSH) 0.916 uIU/mL (0.358-3.740)
[2024-02-09] MEDS: Insulin Lispro 100 UNIT/ML INSULN.PEN SC ×3 (06:14→17:41)
[2024-02-09] MEDS: hydrOXYzine PAM 25 MG Capsule 50 MG PO ×2 (06:16→14:55)
[2024-02-09] MEDS: busPIRone 5 MG Tablet 10 MG PO ×2 (06:16→14:55)
[2024-02-09] MEDS: Vancomycin HCl 1,250 MG in 0.9% Normal Saline (250mL Bag) 250 ML 167 MG IV ×2 (06:20→19:21)
[2024-02-09] MEDS: HYDROcodone Bitartrate/Apap 5/325 Tablet PO ×2 (06:20→13:55)
[2024-02-09 07:10] LABS: Bedside Glucose 423 mg/dL (74-106)
[2024-02-09 08:52] VITALS: BP 120/71; PULSE 86; RESP 18; TEMP 36.6; O2SAT 93
[2024-02-09] MEDS: Enoxaparin 40 MG/0.4 ML Syringe SC (09:11)
[2024-02-09] MEDS: Ascorbic Acid 500 MG Tablet 1000 MG PO ×2 (09:12→17:43)
[2024-02-09] MEDS: Lactobacillis Acidophilus 1 CAP PO ×3 (09:12→17:43)
[2024-02-09] MEDS: ARIPiprazole 5 MG Tablet PO (09:12)
[2024-02-09] MEDS: Insulin Glargine-YFGN 100 UNIT/ML Pen 40 UNIT SC (09:13)
[2024-02-09] MEDS: Pantoprazole Sodium 40 MG Tablet PO (09:13)
[2024-02-09] MEDS: lamoTRIgine 25 MG Tablet PO (09:13)
[2024-02-09] MEDS: QUEtiapine 100 MG Tablet PO (09:14)
[2024-02-09] MEDS: Juven (unflavored) Packet 1 PACKET PO ×2 (09:25→18:12)
--- NOTE | 2024-02-09 10:13 | PN.HOSP_ITS ---
Reason for Visit Reason for Visit: Right foot cellulitis/diabetic foot ulcer Subjective Subjective Patient denies any issues overnight. We did discuss that her MRI is negative so I did not think she would need amputation but awaiting podiatry input to find out exactly what their plan is overall. I do suspect there may need to be some debridement to the ulceration but unsure at this time. She voices understanding. We are also trying to better control her blood sugars. We gave her home doses of basal insulin and her blood sugars are markedly elevated still today so I have double of her home basal insulin from 20-40. Patient states she is also on prandial insulin but is unable to tell me the dosing. Objective Data Objective Data Vital Signs: Vital Signs Temp Pulse Resp BP Pulse Ox O2 Del Method O2 Flow Rate 97.8 F 86 18 120/71 93 Room Air 2 02/09/24 08:52 02/09/24 08:52 02/09/24 08:52 02/09/24 08:52 02/09/24 08:52 02/09/24 08:52 02/09/24 02:25 Oxygen Flow Rate (L/min) 2 Oxygen Delivery Method Room Air Weight: 64.5 kg Body Mass Index (BMI) 23.6 Intake & Output: Intake and Output for Last 24 Hours 02/07/24 02/08/24 02/09/24 23:59 23:59 23:59 Intake Total 3213.33 / 3213.33 1157.5 / 1157.5 Balance 3213.33 / 3213.33 1157.5 / 1157.5 Lab / Micro Data 02/09/24 05:20 02/09/24 05:20 Labs: Laboratory Results - last 24 hr 02/08/24 11:20: POC Glucose 334 H 02/08/24 16:18: POC Glucose 357 H 02/08/24 20:56: POC Glucose 369 H 02/09/24 05:20: WBC 3.9 L, RBC 4.43, Hgb 12.6, Hct 38.3, MCV 86.5, MCH 28.4, MCHC 32.9, RDW Std Deviation 38.6, RDW Coeff of Cele 12.2, Plt Count 198, MPV 10.1, Immature Gran % (Auto) 1.800 H, Neut % (Auto) 49.1, Lymph % (Auto) 31.7, M [place]ahn[place] % (Auto) 11.3 H, Eos % (Auto) 5.1 H, Baso % (Auto) 1.0, Absolute Neuts (auto) 1.9 L, Absolute Lymphs (auto) 1.24, Nucleated RBC % 0, Sodium 136, Potassium 4.0, Chloride 106, Carbon Dioxide 26.0, Anion Gap 4 L, BUN 13, Creatinine 0.55, Estim Creat Clear Calc 106.44, Est GFR (MDRD) Af Amer 147, Est GFR (MDRD) Non-Af 122, BUN/Creatinine Ratio 23.5 H, Glucose 381 H, Calcium 8.3 L , Phosphorus 3.5, Magnesium 1.9, Total Bilirubin 0.40, AST 55 H, ALT 111 H, A lkaline Phosphatase 161 H, Total Protein 5.5 L, Albumin 2.6 L, Globulin 2.9, Albumin/Globulin Ratio 0.9, TSH 0.916 02/09/24 06:13: POC Glucose 423 H Radiography Diagnostic Testing: Radiology Impression Lower Extremity MRI 02/08/24 07:41 IMPRESSION: No evidence of osteomyelitis. Electronically Signed: Jose Cui MD at 1:09 EDT , Physical Exam Const alert, oriented x3, no apparent distress, average body habitus and well nourished; Negative for healthy appearing Constitutional Narrative: Middle-aged, white female, sitting up in bed, appears older than stated age, nontoxic, talking on the phone at the time of my arrival, cooperative HEENT head/scalp atraumatic and moist oral mucous membranes HEENT Narrative: Mallampati 2, no thrush Head and Scalp: normocephalic Resp normal respiratory effort, no retractions, no use of accessory muscles and clear to auscultation bilaterally Resp Narrative: Diminished but clear Auscultation: Negative for rales, rhonchi or wheezes Cardio regular rate, regular rhythm, S1 normal heart sound, S2 normal heart sound, no murmurs, no rub, no gallops and no clicks GI normal to inspection, nondistended, normoactive bowel sounds, soft to palpation and non-tender Extremity Extremity Narrative: Right lower extremity with bandage in place. Nurses just placed and dressing is dry clean and intact, patient with decreased sensation in bilateral feet from neuropathy, no cyanosis or clubbing, left lower extremity pedal pulses are 1+ Neuro oriented x3, moves all extremities and no focal motor deficits Speech: speech normal Psych affect normal Psych Narrative: Eye contact was good and patient interacted appropriately Assessment & Plan Assessment/Plan (1) Failure of outpatient treatment: (2) Medical non-compliance: (3) Diabetic ulcer of right foot: QUALIFIERS: Diabetic foot ulcer location: toe Diabetes mellitus type: type 2 Non-pressure ulcer stage: limited to breakdown of skin Qualified Code(s): E11.621 - Type 2 diabetes mellitus with foot ulcer; L97.511 - Non- pressure chronic ulcer of other part of right foot limited to breakdown of skin (4) Hyperglycemia: (5) Insulin dependent diabetes mellitus: PLAN: Plan Right diabetic foot wound/cellulitis -Failed outpatient antibiotics as patient completed course of Augmentin and doxycycline about 1 week prior to presentation -Blood cultures are pending but unable to collect wound culture on presentation -Hopefully podiatry may be able to culture -MRSA PCR is positive and patient with history of MRSA in October of this past year -Continue vancomycin and Zosyn -MRI of the foot is negative for osteomyelitis -Doubt patient will need extensive surgery however may need some debridement -continue as needed pain and medication as ordered -Wound care consultation to wound nurse -Podiatry consultation pending--> Dr. Ernst is to evaluate later today Mild transaminitis -Highly suspected antibiotic related -Patient without any abdominal pain -No need to trend unless clinical exam changes Uncontrolled DM-2 -Recent A1c was 11.5 -Fasting sugar still markedly elevated today -Basal insulin was 20 units will increase to 40 units daily based on her fasting blood sugar this morning Patient states she does take prandial insulin but dose is unknown- -will continue sliding scale for now but increase to high dose -Based on this will need to calculate prandial insulin -Patient does have pretty significant history of medical noncompliance History of abdominal cellulitis -Patient had a large left lower abdominal wall cellulitis/abscess and was admitted here at the end of October -Left AMA at that time and then did not follow-up and get her antibiotics next- does not appear to have any acute issues at this time HEBER -Patient noncompliant and appears that she is lost a significant amount of weight GERD -Continue home PPI Bipolar disorder -Continue home BuSpar -Can continue home doxepin -Continue home hydroxyzine -Continue home Lamictal -continue home Seroquel OA/chronic pain -As needed continue home [place] -Continue home muscle relaxant as needed History of medical noncompliance -Complicates treatment, prognosis, and outcomes -Patient has history of AMA discharges DVT prophylaxis -Lovenox subcu daily CODE STATUS -Full code Charges/Coding Visit Charges Inpatient E&M: 27664 Subs Hosp L2
[2024-02-09 12:24] LABS: Bedside Glucose 345 mg/dL (74-106)
--- NOTE | 2024-02-09 13:40 | PCM.CONS.GEN ---
Assessment & Plan Assessment/Plan (1) Insulin dependent diabetes mellitus: PLAN: Patient was strongly encouraged to be more compliant with her glucose management and care for her feet. She understands that she is at risk for further ulceration and limb loss. (2) Cellulitis of foot, right: PLAN: Continue with antibiotic treatment. (3) Diabetic ulcer of right foot: QUALIFIERS: Diabetic foot ulcer location: toe Diabetes mellitus type: type 2 Non-pressure ulcer stage: limited to breakdown of skin Qualified Code(s): E11.621 - Type 2 diabetes mellitus with foot ulcer; L97.511 - Non-pressure chronic ulcer of other part of right foot limited to breakdown of skin PLAN: Selective debridement was performed utilizing pickups and scissors. Most of the nonviable tissue was able to easily be removed as well as the peeling skin surrounding the wound. The wound does appear healthy and is superficial. MRI results reveal no sign of osteomyelitis or deep abscess. The patient was educated on findings. PLAN: Plan Upon discharge, recommend that the patient follow-up at the wound healing center for further care. She understand that she will need to continue with oral antibiotics until they are finished. She also needs to follow-up with podiatry long-term. The wound today was dressed with Aquacel Ag and gauze. Washing the wound with Hibiclens daily as appropriate for the first week and then that can be transition to every other day. Surgical shoe should be utilized with ambulation. Right fifth toe has appears to be avulsion fracture at the medial base of the proximal phalanx. Patient was informed of this and treatment is not necessary. This does appear to be semiacute and clinically there is no sign of recent injury. Patient does not understand how this could have happened but she states she has completely numb feet. Podiatry will follow as needed and she may did be discharged per medical management. For podiatric standpoint, surgical intervention is not necessary. HPI Consult Data Date of Consult: 02/09/24 HPI Narrative Reason for Consultation: Diabetic foot ulceration to the right plantar foot with cellulitis and MRSA HPI Narrative: ANA CRISTINA THOMAS, is a 53 F who presents complaining of diabetic foot ulcer to right foot. She states that she is not for sure exactly how it started. Patient states that she was on the fence about moving to this area. She had lived in another state as well as in other parts of [place]. She recently has decided to stay around this area. Patient admits that she has a history of diabetic foot ulceration to left foot which was very serious. Patient states that while in [place], a head of marketing analytics was going to perform surgery on her second toes because she was told that they were hammered and needed to be surgically corrected. Patient notes that she has significant neuropathy and that she also has not been in control of her blood sugar levels. [facility] Medical History (Updated 02/08/24 @ 06:[address] Vicente Mao, DO) Failure of outpatient treatment Abnormal EKG Preoperative cardiovascular examination Abdominal wall abscess Hypertension Neuropathy Diabetes Sarcoidosis Home Medications ?Medication ?Instructions ?Recorded ?Last Taken ?Type buspirone 10 mg tablet 10 mg PO TID 07/19/13 Unknown History aripiprazole 5 mg tablet mg PO 02/08/24 Unknown History doxepin 25 mg capsule 25 mg PO QHS 02/08/24 Unknown History hydroxyzine pamoate 25 mg capsule 50 mg PO TID 02/08/24 Unknown History (Vistaril) hydroxyzine pamoate 50 mg capsule 50 mg PO TID 02/08/24 Unknown History insulin glargine 100 unit/mL (3 unit subcut 02/08/24 Unknown History mL) subcutaneous pen (Lantus Solostar U-100 Insulin) insulin lispro 100 unit/mL subcut 02/08/24 Unknown History subcutaneous pen lamotrigine 25 mg tablet 25 mg PO DAILY 02/08/24 Unknown History methocarbamol 750 mg tablet 750 mg PO Q6H PRN PRN muscle 02/08/24 Unknown History relaxer omeprazole 40 mg capsule,delayed 40 mg PO DAILY 02/08/24 Unknown History release pen needle, diabetic 31 gauge x #100 ea 02/08/24 Unknown Rx 1/4 quetiapine 100 mg tablet 100 mg PO DAILY 02/08/24 Unknown History quetiapine 200 mg tablet 200 mg PO QHS 02/08/24 Unknown History linaclotide 72 mcg capsule 72 mcg PO DAILY bowels 02/09/24 Unknown History (Linzess) Allergy/AdvReac Type Severity Reaction Status Date / Time aspirin AdvReac Other Verified 02/08/24 05:04 hydromorphone (From Dilaudid) AdvReac Other Verified 02/08/24 05:04 pseudoephedrine HCl (From AdvReac Other Verified 02/08/24 05:04 Sudafed) Surgical History Hx of brain surgery Hx of appendectomy Hx of section Hx of total adrenalectomy Social History Smoking Status: Current every day smoker tobacco type: cigarettes Physical Exam Narrative Patient was resting comfortably in bed with foot ulceration covered with dry dressing. There was only minimal serosanguineous drainage on the inner layer. Const alert, oriented x3 and no apparent distress Extremity General Extremity: other findings Other Details: Protective sensation is absent and patient notices no pain during treatment. She does, however, appreciate light touch. Peripheral Pulses: Yes posterior tibial pulses present and dorsalis pedis pulses present Right Lower Extremity: foot and digits Positive for other (Minimally contracted second toe which is reducible. Radiographs and MRI both reveal fracture to proximal medial base right fifth toe. Clinically, there is no edema, erythema, ecchymosis.) Left Lower Extremity: lower leg other (There is no lymphedema with the exception of edema secondary to infection to the right distal foot.) and foot and digits Positive for other (Minimally contracted second toe which is reducible.) Skin General Skin Exam: other At the plantar left arch, more proximal to the heel, there is evidence of remote wound per the patient's verbal history. This would be consistent with deep ulceration. There is no significant overlying callus. Wounds: wounds noted size Size: 1.2 x 1.2 x 0.1 cm and bed granulating well and with slough Wound Narrative: The wound is to the right foot at the plantar second metatarsal head. There is no surrounding callus. There is surrounding moderate superficial layer of skin which indicates this is likely a blister. This does extend into the lateral aspect of the second toe. There is a mild cellulitis to the right distal foot which does appear to be resolving per the markings. There is no malodor. No tracking, probing to bone, purulence, undermining. The base is mostly granular with a mild amount of yellow-brown fibrous slough within the wound. That was able to mostly be completely removed with debridement bedside. Nails: normal Lab / Micro Data 02/09/24 05:20 02/09/24 05:20 Labs: Laboratory Results - last 24 hr 02/08/24 16:18: POC Glucose 357 H 02/08/24 20:56: POC Glucose 369 H 02/09/24 05:20: WBC 3.9 L, RBC 4.43, Hgb 12.6, Hct 38.3, MCV 86.5, MCH 28.4, MCHC 32.9, RDW Std Deviation 38.6, RDW Coeff of Cele 12.2, Plt Count 198, MPV 10.1, Immature Gran % (Auto) 1.800 H, Neut % (Auto) 49.1, Lymph % (Auto) 31.7, [place] % (Auto) 11.3 H, Eos % (Auto) 5.1 H, Baso % (Auto) 1.0, Absolute Neuts (auto) 1.9 L, Absolute Lymphs (auto) 1.24, Nucleated RBC % 0, Sodium 136, Potassium 4.0, Chloride 106, Carbon Dioxide 26.0, Anion Gap 4 L, BUN 13, Creatinine 0.55, Estim Creat Clear Calc 106.44, Est GFR (MDRD) Af Amer 147, Est GFR (MDRD) Non-Af 122, BUN/Creatinine Ratio 23.5 H, Glucose 381 H, Calcium 8.3 L, Phosphorus 3.5, Magnesium 1.9, Total Bilirubin 0.40, AST 55 H, ALT 111 H, Alkaline Phosphatase 161 H, Total Protein 5.5 L, Albumin 2.6 L, Globulin 2.9, Albumin/Globulin Ratio 0.9, TSH 0.916 02/09/24 06:13: POC Glucose 423 H 02/09/24 11:59: POC Glucose 345 H Imaging Radiology Impression Lower Extremity MRI 02/08/24 07:41 IMPRESSION: No evidence of osteomyelitis. Electronically Signed: Jose Cui MD at 1:09 EDT ,
[2024-02-09 14:59] VITALS: BP 131/75; PULSE 95; RESP 18; TEMP 36.8; O2SAT 94
[2024-02-09 18:08] LABS: Vancomycin, Trough Level 7.1 ug/mL (5.0-15.0)
[2024-02-09] MEDS: Vancomycin Trough/Random Due 1 LAB MC (18:11)
[2024-02-09 18:13] LABS: Bedside Glucose 309 mg/dL (74-106)
--- NOTE | 2024-02-09 18:20 | PCM.RX.CS ---
Consult Antibiotic Management Pharmacy has been consulted to manage selected antibiotic: Vancomycin Type of Intervention Type of Consult: Follow-up Labs Labs: Sodium 136 mmol/L (136-145) 02/09/24 05:20 Potassium 4.0 mmol/L (3.5-5.1) 02/09/24 05:20 Chloride 106 mmol/L (98-107) 02/09/24 05:20 Carbon Dioxide 26.0 mmol/L (21.0-32.0) 02/09/24 05:20 Anion Gap 4 (5-15) L 02/09/24 05:20 BUN 13 mg/dL (7-18) 02/09/24 05:20 Creatinine 0.55 mg/dL (0.55-1.02) 02/09/24 05:20 Est GFR (MDRD) Af Amer 147 mL/min (>60) 02/09/24 05:20 Est GFR (MDRD) Non-Af 122 mL/min (>60) 02/09/24 05:20 BUN/Creatinine Ratio 23.5 RATIO (10-20) H 02/09/24 05:20 Glucose 381 mg/dL (74-106) H 02/09/24 05:20 Vancomycin Trough 7.1 ug/mL (5.0-15.0) 02/09/24 17:30 Goal Trough Goal Trough: 15-20 mcg/mL Pharmacy Plan for Drug Dosing Pharmacy Plan for Drug Dosing: VANCOMYCIN LEVEL RECEIVED Current Vancomycin Dose: 1250mg IV Q12hr Number of Doses Received: 3 (ED + 2 scheduled doses) Vancomycin Level: 7.1 Hours Since Last Dose: 11hr Renal Function: 0.55 Renal Function Trend: stable Lab/Micro: BCx pending Vancomycin Plan/Comments: the patient had a trough drawn which resulted in a value of 7.1 (goal 15-20). patient's level is subtherapeutic at this time. Will plan to change vancomycin dose to 1250mg IV Q8h to start 02/09/24 @1900. This will give a predicted trough value of 15.3 per vancomycin dosing calculator. Pending Level: 02/10/24 @1830, prior to 4th dose of new regimen per protocol Pharmacy Service will continue to monitor and adjust dosing as required.
== END 2024-02-09 20:22 | disposition left against medical advice (07) | DRG 638 ==
LOC: ED 06:24 → MS3 06:40
PROVIDERS: Admitting Provider Internal Medicine; Emergency Provider Emergency Medicine; Visit Provider Internal Medicine
DX: E11.621 Type 2 diabetes mellitus with foot ulcer (principal); L97.411 Non-pressure chronic ulcer of right heel and midfoot limited to breakdown of skin; F14.11 Cocaine abuse, in remission; F31.9 Bipolar disorder, unspecified; E11.40 Type 2 diabetes mellitus with diabetic neuropathy, unspecified; E11.628 Type 2 diabetes mellitus with other skin complications; E11.65 Type 2 diabetes mellitus with hyperglycemia; Z79.4 Long term (current) use of insulin; L03.115 Cellulitis of right lower limb; B95.62 Methicillin resistant Staphylococcus aureus infection as the cause of diseases classified elsewhere; I10 Essential (primary) hypertension; M19.90 Unspecified osteoarthritis, unspecified site; G47.33 Obstructive sleep apnea (adult) (pediatric); K21.9 Gastro-esophageal reflux disease without esophagitis; F17.210 Nicotine dependence, cigarettes, uncomplicated; Z23 Encounter for immunization; Z53.29 Procedure and treatment not carried out because of patient's decision for other reasons; T38.3X6A Underdosing of insulin and oral hypoglycemic [antidiabetic] drugs, initial encounter; Z91.148 Patient's other noncompliance with medication regimen for other reason; Z79.899 Other long term (current) drug therapy
CPT/HCPCS: 36415; 73630; 73720; 80048; 80053; 80202; 80307; 82962; 83605; 83735; 84100; 84145; 84443; 85025; 85652; 86140; 87040; 87641; 90656; 94668; 96365; 96366; 96367; 96368; 96372; 96375; 96376; 99221; 99285; 99406; A9585; A4216; G0378; J2405

== ENCOUNTER 2024-02-18 17:02 | Emergency (ER) | payer MEDICARE, MEDICAID, SELFPAY ==
[2024-02-18 17:03] VITALS: BP 111/57; PULSE 82; RESP 16; TEMP 37.1; O2SAT 98
== END 2024-02-18 17:31 | disposition left against medical advice (07) ==
LOC: ED 17:33
DX: Z53.21 Procedure and treatment not carried out due to patient leaving prior to being seen by health care provider (principal)
CPT/HCPCS: 99281

== ENCOUNTER 2024-02-20 22:39 | Inpatient (IN) | payer MEDICARE, SELFPAY ==
[2024-02-20 22:40] VITALS: BP 151/74; PULSE 106; RESP 16; TEMP 36.8; O2SAT 95; BMI 24.0
[2024-02-20 22:43] VITALS: BP 151/74; PULSE 107; RESP 16; TEMP 36.8; O2SAT 96
--- NOTE | 2024-02-20 23:08 | ED.VIS.LOWEX ---
HPI History of Present Illness Chief Complaint: Wound Check Informant: patient Narrative Narrative: Patient is a 53-year-old female with history of insulin-dependent diabetes mellitus, bipolar disorder and tobacco use presenting with worsening pain and redness for at her right foot. Patient has had a ulcer at the bottom of her right foot for the past month. She states it has been worsening and now she is noticing streaking going up her right foot. She also reports that because of social issues she has not had her insulin for the past 2 days. She has developed nausea and chills today. She recently moved to the area from [place] and does not have a PCP or liner roll changer. She states that her blood sugar was 508 by EMS. She thinks her last A1c was around 11 and that was at least a year ago. Over the past month she has been on a course of doxycycline and amoxicillin. She does report a history of MRSA. She is having increased pain of her foot and states that is particularly bad for her since she normally can even feel her foot because of neuropathy. No other complaints or concerns at this time. [facility] Medical History (Updated 02/21/24 @ 05:[address] Chetna Sorensen, ) Hearing loss, left Cancer Anxiety Depression Bipolar disorder GERD (gastroesophageal reflux disease) Cirrhosis Hepatitis Smoker On home oxygen therapy COPD (chronic obstructive pulmonary disease) Failure of outpatient treatment Abnormal EKG Preoperative cardiovascular examination Abdominal wall abscess Hypertension Neuropathy Diabetes Sarcoidosis Home Medications ?Medication ?Instructions ?Recorded ?Last Taken ?Type buspirone 10 mg tablet 10 mg PO TID depression 07/19/13 02/17/24 History aripiprazole 5 mg tablet 5 mg PO DAILY antidepressant 02/08/24 02/17/24 History doxepin 25 mg capsule 25 mg PO QHS bipolar 02/08/24 02/17/24 History hydroxyzine pamoate 25 mg capsule 50 mg PO TID anxiety 02/08/24 02/17/24 History (Vistaril) insulin glargine 100 unit/mL (3 25 unit subcut DAILY blood sugar 02/08/24 Unknown History mL) subcutaneous pen (Lantus Solostar U-100 Insulin) insulin lispro 100 unit/mL See Protocol subcut ACHS blood 02/08/24 02/17/24 History subcutaneous pen sugar lamotrigine 25 mg tablet 25 mg PO DAILY bipolar 02/08/24 02/17/24 History methocarbamol 750 mg tablet 750 mg PO Q6H PRN PRN muscle 02/08/24 02/17/24 History relaxer omeprazole 40 mg capsule,delayed 40 mg PO DAILY acid reflux 02/08/24 02/17/24 History release pen needle, diabetic 31 gauge x #100 ea 02/08/24 Unknown Rx / quetiapine 100 mg tablet 100 mg PO DAILY bipolar 02/08/24 02/17/24 History quetiapine 200 mg tablet 200 mg PO QHS bipolar 02/08/24 02/16/24 History linaclotide 72 mcg capsule 72 mcg PO DAILY bowels 02/09/24 02/17/24 History (Linzess) cyclobenzaprine 5 mg PO TID PRN PRN MUSCLE SPASMS 02/20/24 Unknown History Allergy/AdvReac Type Severity Reaction Status Date / Time aspirin AdvReac Other Verified 02/20/24 22:40 hydromorphone (From Dilaudid) AdvReac Other Verified 02/20/24 22:40 pseudoephedrine HCl (From AdvReac Other Verified 02/20/24 22:40 Sudafed) Surgical History (Updated 02/21/24 @ 03:02 by Simi Torrez) History of cholecystectomy Hx of brain surgery Hx of appendectomy Hx of section Hx of total adrenalectomy Social History Smoking Status: Current every day smoker tobacco type: cigarettes ROS ROS ED Constitutional Constitutional ED: Reports chills; Denies fever(s) Cardiovascular Cardiovascular: Denies chest pain Respiratory/Chest Respiratory/Chest: Denies cough Gastrointestinal Gastrointestinal: Reports nausea; Denies abdominal pain or vomiting Musculoskeletal Musculoskeletal: Reports other Details: Right foot pain Integumentary Reports other Details: Wound to the bottom of the right foot, red streaking up the right foot Neurologic Neurologic: Reports paresthesias; Denies weakness Hematologic/Lymphatic Hematologic/Lymphatic: Denies easy bleeding or easy bruising EXAM Physical Exam Const Vital Signs: 02/20/24 22:40 02/20/24 22:43 02/20/24 23:43 Temperature 98.3 F 98.3 F 98.3 F Temperature Source Oral Oral Oral Pulse Rate 106 H 107 H 109 H Respiratory Rate 16 16 18 Blood Pressure 151/74 H 151/74 H 133/76 H Blood Pressure Mean 99 99 95 Pulse Ox 95 96 95 Oxygen Delivery Method Room Air Room Air Room Air 02/21/24 00:50 02/21/24 01:14 Temperature 98.9 F 98.9 F Temperature Source Oral Pulse Rate 93 99 Respiratory Rate 16 16 Blood Pressure 123/65 H 113/63 Blood Pressure Mean 84 79 Pulse Ox 96 97 Oxygen Delivery Method Room Air Positive well nourished and well developed General Appearance ED: well developed and NAD HEENT HEENT Narrative: Dry mucosal membranes Neck supple Chest Wall inspection of chest normal Resp normal respiratory effort and clear to auscultation bilaterally Cardio regular rhythm Rate: tachycardic Extremity Extremity Narrative: Diffuse tenderness of the right foot. No crepitus appreciated. 1 cm x 1 cm ulcerated wounds at the base of the second MTP, plantar aspect. No peripheral edema appreciated. No joint effusion appreciated. Neuro oriented x3 Sensorium / Orientation: alert Motor Exam: Negative for general weakness Psych mental status grossly normal Skin Skin Narrative: 1 cm diameter circumferential ulcerated wound on the plantar aspect of the foot and over the second MTP. On the dorsal aspect at the base of the second toe there is erythema and some more chronic. She is combination. There is a slight area lymphangitic streaking heading towards the ankle. No drainage at this time appreciated. No area of fluctuance appreciated. MDM MDM MDM Narrative Medical decision making narrative: Patient valuated for worsening wound to her right foot as well as hyperglycemia. Due to social issues patient has been unable to get any of her insulin for the past 2 days. Concern for diabetic foot infection versus osteomyelitis. Will obtain x-ray and a lactate acid in addition to infectious workup with CRP and ESR especially as patient is tachycardic and certain have systemic symptoms. Lower suspicion for necrotizing fasciitis based on physical exam will obtain x-ray in addition to look for any type of free air. Due to degree of her symptoms I do anticipate patient need to be admitted to the hospital for IV antibiotics. Patient started on IV vancomycin. Lab work largely normal. She has normal CRP and ESR. She is hyperglycemic with a blood glucose of 478. Her anion gap is normal as well as her bicarb. Chart review shows that patient actually was just admitted on 02/07 and discharged 02/08 for the same exact thing. She was treated with IV vancomycin. She was seen by podiatry. Suspect there is a large component of medication noncompliance with this. Wounds probably worsening as patient has poor blood glucose control and has not been on any insulin in the past 2 days. In addition it is not clear if patient has been taking any antibiotics since discharge from the hospital. Will be readmitted for blood sugar management and IV antibiotics. History & Record Review Additional record(s) reviewed:: Prior inpatient record Lab Data Attestation: I reviewed the patient's lab results. Labs: Laboratory Results - last 24 hr 02/20/24 02/21/24 23:57 00:05 WBC 8.1 RBC 5.48 H Hgb 15.8 H Hct 47.3 H MCV 86.3 MCH 28.8 MCHC 33.4 RDW Std Deviation 39.3 RDW Coeff of Cele 12.7 Plt Count 250 MPV 10.9 Immature Gran % (Auto) 2.900 H Neut % (Auto) 68.2 Lymph % (Auto) 15.4 L [place] % (Auto) 10.6 H Eos % (Auto) 2.0 Baso % (Auto) 0.9 Absolute Neuts (auto) 5.5 Absolute Lymphs (auto) 1.24 Nucleated RBC % 0.2 ESR 9 PT 12.7 INR 1.0 Sodium 134 L Potassium 3.6 Chloride 100 Carbon Dioxide 27.0 Anion Gap 7 BUN 15 Creatinine 0.76 Estim Creat Clear Calc 77.03 Est GFR (MDRD) Af Amer 102 Est GFR (MDRD) Non-Af 84 BUN/Creatinine Ratio 19.6 Glucose 478 H* Lactic Acid 1.5 Calcium 8.7 C-React Prot Ext Range < 2.90 Acetone Level NEGATIVE Radiography Diagnostic Testing: Clinical Impression(s) from Imaging Studies Foot X-Ray 02/21/24 00:06 IMPRESSION: 1. Persistent fracture of the proximal phalanx of fifth toe. 2. Soft tissue swelling without definite osteomyelitis. Electronically Signed: Prema Potter MD at 2:10 EST , Discharge Plan Dx/Rx/DC Orders Clinical Impression: Diabetic ulcer of right foot, Insulin dependent diabetes mellitus, Cellulitis of foot, right, Noncompliance with medication regimen Disposition Disposition: Acute Care Hospital [facility] Discharge Date/Time: 02/21/24 02:30
[2024-02-20 23:43] VITALS: BP 133/76; PULSE 109; RESP 18; TEMP 36.8; O2SAT 95
[2024-02-21] VITALS (11 sets, daily range): BP systolic 105–132; BP diastolic 60–82; PULSE 80–99; RESP 14–18; TEMP 36.6–37.2; O2SAT 94–97; BMI 23.8; BMI 23.4
[2024-02-21] MEDS: Ondansetron 4 MG/2 ML Vial IV ×2 (00:02→04:27)
[2024-02-21] MEDS: Morphine 4 MG/ML Syringe IV (00:02)
[2024-02-21] MEDS: 0.9% Normal Saline (1000mL) 1,000 ML 1000 ML IV (00:02)
--- NOTE | 2024-02-21 00:06 | RAD_ITS ---
STUDY: X-RAY - RIGHT FOOT CLINICAL: Female, 53 years old patient with right-sided diabetic wound. TECHNIQUE: 3 view(s) of the foot. COMPARISON: Radiographs of the right foot dated February 08, 2024. FINDINGS: Normal talus, calcaneus, and tarsal bones. Normal visualized subtalar, talonavicular, calcaneocuboid, tarsal and tarsometatarsal articulations. Normal metatarsi. Normal metatarsophalangeal joint of the great toe. Normal tibial and fibular sesamoid bones. Normal interphalangeal joint of the great toe. Normal phalanges of the great toe. Normal second through fifth metatarsophalangeal joints. There appears to be intra-articular fracture of the proximal phalanx of the fifth toe. This is probably unchanged since the previous radiograph. There is non-specific soft tissue swelling of the foot. RAD/Foot min 3 Views IMPRESSION: 1. Persistent fracture of the proximal phalanx of fifth toe. 2. Soft tissue swelling without definite osteomyelitis. Electronically Signed: Prema Potter MD at 2:10 EST ,
[2024-02-21 00:15] LABS: Erythrocyte Sedimentation Rate 9 mm/hr (0-30)
[2024-02-21 00:19] LABS: Prothrombin Time (Protime)PT. 12.7 SECONDS (11.7-14.9)
[2024-02-21 00:26] LABS: Anion Gap 7 (5-15); BUN 15 mg/dL (7-18); BUN/Creat Ratio 19.6 RATIO (10-20); CRP < 2.90 mg/L (0.0-3.0); Calcium,Total 8.7 mg/dL (8.5-10.1); Chloride 100 mmol/L (98-107); Creatinine, Serum 0.76 mg/dL (0.55-1.02); EST Glomerular Filtration Rate 84 mL/min (>60); Est Glom Filt Rate - Afr Amer 102 mL/min (>60); Estimated Creatinine Clearance 77.03 ml/min; Glucose 478 mg/dL (74-106); Potassium 3.6 mmol/L (3.5-5.1); Sodium Level 134 mmol/L (136-145)
[2024-02-21 00:36] LABS: Lactic Acid 1.5 mmol/L (0.4-1.9)
[2024-02-21 00:38] LABS: Absolute Lymphocyte Count 1.24 X10^3/uL (0.83-4.51); Absolute Neutrophil Count 5.5 X10^3/uL (2.0-7.7); Basophil# 0.07 X10^3/uL; Basophil% 0.9 % (0-1); Eosinophil# 0.16 X10^3/uL; Hematocrit 47.3 % (37-47); Hemoglobin 15.8 g/dL (12.0-15.0); Lymphocyte # 1.24 X10^3/ul (0.83-4.51); Lymphocyte % 15.4 % (19-41); Mean Corp Hgb Conc 33.4 g/dL (32-36); Mean Corpuscular Hgb 28.8 pg (27.0-32.0); Mean Corpuscular Volume 86.3 fL (81-99); Mean Platelet Vol. 10.9 fl (6.2-12.0); Monocyte# 0.85 X10^3/uL; Monocyte% 10.6 % (0-10); NRBC Flagged by Analyzer 0.2 % (0-5); Neutrophil % 68.2 % (47-70); Platelet Count 250 K/mm3 (150-450); RBC Distribution Width CV 12.7 % (11.6-14.6); RBC Distribution Width SD 39.3 fl (35.1-43.9); Red Blood Count 5.48 M/mm3 (4.2-5.4); White Blood Count 8.1 K/mm3 (4.4-11.0)
[2024-02-21] MEDS: Vancomycin IV 1,000 MG/200 ML BAG 200 MG IV ×2 (01:10→14:19)
[2024-02-21] MEDS: oxyCODONE 5 MG Tablet PO (01:13)
--- NOTE | 2024-02-21 01:30 | PCM.HP.STD ---
[facility] - General General Date of Admission: 02/21/24 Date of Service: 02/21/24 Chief Complaint: Worsening Right Foot Redness and Pain. HPI Narrative ANA CRISTINA THOMAS, is a 53 F with a past medical history of tobacco abuse, history of HEBER, DM-2; uncontrolled with hyperglycemia, diabetic neuropathy, history of sarcoidosis, GERD, history of brain surgery, history of cocaine abuse, bipolar disorder, history of suicide attempt via intentional drug overdose, history of perirectal abscess, history of Right total adrenalectomy, history of appendectomy, remote history of , OA; with low back pain, history of cellulitis with a large Left lower abdominal wall abscess admitted here from 11/11/2023 to 11/14/2023 that was complicated by medical noncompliance with patient then leaving this hospital AMA and then also not getting her prescriptions filled and recently diagnosed Cellulitis of the Right Foot ~4 weeks ago at another local hospital followed by a recent admission here from February 08, 2024 to February 09, 2024 for Cellulitis of the Right Foot with an accompanying DFU of the second toe of the Right Foot attributable to Medical Noncompliance with her insulin and suspected Failure of Outpatient Antibiotic Treatment who once again returns to [facility] complaining of worsening Right foot pain and redness. Ms. Thomas states she has once again not been taking her insulin for at least the last 2 days. When EMS checked her blood glucose it was noted to be 508 mg/dL with nausea and chills accompanied by increasing redness streaking up her Right foot in spite of being prescribed recent courses of antibiotics with doxycycline and amoxicillin in the setting of a known history of MRSA. She also states she typically has very little feeling in her Right foot due to her neuropathy - but she now has increasing pain in addition to a worsening ulcer on the plantar surface of the Right foot. She denies associated fever, vomiting, diarrhea, constipation, dysuria, chest pain, SOB or headache. In the ER she was once again diagnosed with Cellulitis of the Right Foot with an accompanying DFU of the second toe of the Right Foot attributable to Medical Noncompliance with her insulin and suspected Failure of Outpatient Antibiotic Treatment and she was then admitted to the general medical floor for ongoing care for a stay that is expected to extend beyond 2 midnights. [facility] Medical History (Updated 02/21/24 @ 05:[address] Chetna Sorensen, DO) Hearing loss, left Cancer Anxiety Depression Bipolar disorder GERD (gastroesophageal reflux disease) Cirrhosis Hepatitis Smoker On home oxygen therapy COPD (chronic obstructive pulmonary disease) Failure of outpatient treatment Abnormal EKG Preoperative cardiovascular examination Abdominal wall abscess Hypertension Neuropathy Diabetes Sarcoidosis Home Medications ?Medication ?Instructions ?Recorded ?Last Taken ?Type buspirone 10 mg tablet 10 mg PO TID depression 07/19/13 02/17/24 History aripiprazole 5 mg tablet 5 mg PO DAILY antidepressant 02/08/24 02/17/24 History doxepin 25 mg capsule 25 mg PO QHS bipolar 02/08/24 02/17/24 History hydroxyzine pamoate 25 mg capsule 50 mg PO TID anxiety 02/08/24 02/17/24 History (Vistaril) insulin glargine 100 unit/mL (3 25 unit subcut DAILY blood sugar 02/08/24 Unknown History mL) subcutaneous pen (Lantus Solostar U-100 Insulin) insulin lispro 100 unit/mL See Protocol subcut ACHS blood 02/08/24 02/17/24 History subcutaneous pen sugar lamotrigine 25 mg tablet 25 mg PO DAILY bipolar 02/08/24 02/17/24 History methocarbamol 750 mg tablet 750 mg PO Q6H PRN PRN muscle 02/08/24 02/17/24 History relaxer omeprazole 40 mg capsule,delayed 40 mg PO DAILY acid reflux 02/08/24 02/17/24 History release pen needle, diabetic 31 gauge x #100 ea 02/08/24 Unknown Rx 1/4 quetiapine 100 mg tablet 100 mg PO DAILY bipolar 02/08/24 02/17/24 History quetiapine 200 mg tablet 200 mg PO QHS bipolar 02/08/24 02/16/24 History linaclotide 72 mcg capsule 72 mcg PO DAILY bowels 02/09/24 02/17/24 History (Linzess) cyclobenzaprine 5 mg PO TID PRN PRN MUSCLE SPASMS 02/20/24 Unknown History Allergy/AdvReac Type Severity Reaction Status Date / Time aspirin AdvReac Other Verified 02/20/24 22:40 hydromorphone (From Dilaudid) AdvReac Other Verified 02/20/24 22:40 pseudoephedrine HCl (From AdvReac Other Verified 02/20/24 22:40 Sudafed) Surgical History (Updated 02/21/24 @ 03:02 by Simi Torrez) History of cholecystectomy Hx of brain surgery Hx of appendectomy Hx of section Hx of total adrenalectomy Social History Smoking Status: Current every day smoker tobacco type: cigarettes ROS ROS Narrative Review of Systems: Constitutional: Patient denies fever or chills. Eyes: Patient denies changes in vision or discharge from eyes. ENT: Patient denies runny nose, sore throat or ear pain. Resp: Patient denies SOB or cough. CV: Patient denies chest pain, palpitations or heart racing. GI: Patient denies abdominal pain, nausea, vomiting, diarrhea or constipation. : Patient denies dysuria or hematuria. MSK: Patient admits to pain in Right foot. Skin: Patient admits to increasing redness and swelling of the Right foot with enlarging ulcer on the bottom of her second toe. Psych: Patient denies symptoms of uncontrolled depression or anxiety. Neuro: Patient admits to paresthesias of the Right foot but she denies headache or focal neurologic deficits. Allergy: Patient denies lip swelling, tongue swelling or urticaria. Hematology: Patient denies easy bleeding or easy bruisability. Endocrinology: Patient admits to mild polyuria but she denies polydipsia or polyphagia. 14 point ROS otherwise negative except for positives noted above in HPI. Vital Signs Vital Signs Vital Signs: 02/20/24 22:40 02/20/24 22:43 02/20/24 23:43 Temperature 98.3 F 98.3 F 98.3 F Temperature Source Oral Oral Oral Pulse Rate 106 H 107 H 109 H Respiratory Rate 16 16 18 Blood Pressure 151/74 H 151/74 H 133/76 H Blood Pressure Mean 99 99 95 Pulse Ox 95 96 95 Oxygen Delivery Method Room Air Room Air Room Air 02/21/24 00:50 02/21/24 01:14 Temperature 98.9 F 98.9 F Temperature Source Oral Pulse Rate 93 99 Respiratory Rate 16 16 Blood Pressure 123/65 H 113/63 Blood Pressure Mean 84 79 Pulse Ox 96 97 Oxygen Delivery Method Room Air Weight Weight: 144 lb 9.972 oz Body Mass Index (BMI) 24.0 Results Lab / Micro Data 02/20/24 23:57 02/20/24 23:57 Labs: Laboratory Results - last 24 hr 02/20/24 23:57: WBC 8.1, RBC 5.48 H, Hgb 15.8 H, Hct 47.3 H, MCV 86.3, MCH 28.8, MCHC 33.4, RDW Std Deviation 39.3, RDW Coeff of Cele 12.7, Plt Count 250, MPV 10.9, Immature Gran % (Auto) 2.900 H, Neut % (Auto) 68.2, Lymph % (Auto) 15.4 L, [place] % (Auto) 10.6 H, Eos % (Auto) 2.0, Baso % (Auto) 0.9, Absolute Neuts (auto) 5.5, Absolute Lymphs (auto) 1.24, Nucleated RBC % 0.2, ESR 9, PT 12.7, INR 1.0, Sodium 134 L, Potassium 3.6, Chloride 100, Carbon Dioxide 27.0, Anion Gap 7, BUN 15, Creatinine 0.76, Estim Creat Clear Calc 77.03, Est GFR (MDRD) Af Amer 102, Est GFR (MDRD) Non-Af 84, BUN/Creatinine Ratio 19.6, Glucose 478 H*, Lactic Acid 1.5, Calcium 8.7, C-React Prot Ext Range < 2.90 02/21/24 00:05: Acetone Level NEGATIVE Imaging [facility] Imaging Services [address] [address] Foot min 3 Views MR#: [id number] Acct: [id number] Name: ANA CRISTINA THOMAS Rep #: [id number] : 1970 F 53 From: Prema Potter MD PCP: JP PENA Status: ADM IN Study: Foot min 3 Views Date of Exam: 02/21/24 Exam# [id number] Ordering Dr: Chetna Sorensen DO STUDY: X-RAY - RIGHT FOOT CLINICAL: Female, 53 years old patient with right-sided diabetic wound. TECHNIQUE: 3 view(s) of the foot. COMPARISON: Radiographs of the right foot dated February 08, 2024. FINDINGS: Normal talus, calcaneus, and tarsal bones. Normal visualized subtalar, talonavicular, calcaneocuboid, tarsal and tarsometatarsal articulations. Normal metatarsi. Normal metatarsophalangeal joint of the great toe. Normal tibial and fibular sesamoid bones. Normal interphalangeal joint of the great toe. Normal phalanges of the great toe. Normal second through fifth metatarsophalangeal joints. There appears to be intra-articular fracture of the proximal phalanx of the fifth toe. This is probably unchanged since the previous radiograph. There is non-specific soft tissue swelling of the foot. RAD/Foot min 3 Views IMPRESSION: 1. Persistent fracture of the proximal phalanx of fifth toe. 2. Soft tissue swelling without definite osteomyelitis. Electronically Signed: Prema Potter MD at 2:10 EST Reading Location ID and State: [address] [place] [address] , Service support , CC: JP PENA; Dr. Chetna Sorensen, DO ~ Vehicle And Equipment Cleaner: Signed Assessment & Plan Assessment/Plan (1) Cellulitis of foot, right: (2) Diabetic ulcer of right foot: QUALIFIERS: Diabetes mellitus type: type 2 Diabetic foot ulcer location: toe Non-pressure ulcer stage: limited to breakdown of skin Qualified Code(s): E11.621 - Type 2 diabetes mellitus with foot ulcer; L97.511 - Non-pressure chronic ulcer of other part of right foot limited to breakdown of skin (3) Insulin dependent diabetes mellitus: (4) Failure of outpatient treatment: (5) Medical non-compliance: (6) Bipolar 1 disorder, depressed: PLAN: Plan 1. Cellulitis of the Right Foot with an accompanying DFU of the second toe of the Right Foot - Admit to general medical floor. Continue empiric IV Zosyn and IV Vancomycin and await culture and sensitivity. Check MRI of the Right Foot to evaluate for possible osteomyelitis. Check MRSA PCR of wound. Give Tylenol prn for [id number] (level 1-5/10) pain or fever. Give [place] prn for severe (level 6-10/10) pain. Finally, we will consult Dr. Villagran of the podiatry service to see this patient on-rounds in the AM for further recommendations with help appreciated in advance. 2. Failure of Outpatient Antibiotic Treatment complicating #1 - Noted. 3. DM-2; uncontrolled with hyperglycemia and diabetic neuropathy worsened due to Medical Noncompliance with insulin due to running out of needles compounding #1 & #2 - Noted. Case Management will be consulted to get additional resources for this patient in an effort to prevent further serial readmission. 4. History of Cellulitis with a Large Left lower abdominal wall Abscess admitted here from 11/11/2023 to 11/14/2023 that was complicated by medical noncompliance with patient then leaving this hospital AMA and then also not getting her prescriptions filled adding to the medical complexity of #1 - #3 - Noted. 5. Tobacco abuse - Tobacco Cessation will be strongly encouraged with Nicotine patch offered to control cravings. 6. History of cocaine abuse along with history of suicide attempt via intentional drug overdose - Noted. [place] UDS pending this admission to confirm suspicion of relapse. 7. Bipolar disorder - Resume home regimen as before. 8. History of HEBER - Start nocturnal CPAP. 9. History of sarcoidosis - Noted with no signs of active disease at this time. 10. GERD - Continue PPI as previous. 11. History of brain surgery - Noted. 12. History of perirectal abscess - Noted with no signs of recurrence. 13. History of Right total adrenalectomy - Noted. 14. History of appendectomy - Noted. 15. Remote history of - Noted for the sake of completeness. 16. OA; with low back pain - Give Tylenol prn. 17. DVT prophylaxis - Lovenox 40 mg sq daily. Total time: Approximately (but not less than) 75 minutes.
--- NOTE | 2024-02-21 02:16 | MRI_ITS ---
HISTORY: Suspected Osteomyelitis. -- Patient is a noncompliant diabetic, .ulcers ball of foot between 1st,2nd,3rd toes Date: 02/21/2024 5:53 PM Technique: MRI examination obtained with multiplanar multi echo imaging. Location: RIGHT foot Contrast: No contrast administered Comparison: 02/08/2024 FINDINGS: BONY ELEMENTS: 1. There is normal bony alignment without evidence of acute fracture. 2. There has been interval development of subtle edema involving the head of the 5th metatarsal. (Series 5: Image 22). No other interval change in the appearance of narrow signal. JOINT SPACES: 1. Normal appearance of alignment of bony elements and joint spaces. No joint effusion DEEP MUSCULAR COMPARTMENTS: 1. Unchanged appearance of the deep muscular compartments of the foot, including the inner osteophyte, and the plantar muscular compartments. NEURAL VASCULAR COMPARTMENTS: 1. Normal appearance of the neural vascular compartments SUBCUTANEOUS SOFT TISSUES. 1. Significant subcutaneous soft tissue stranding and edema involving the plantar surface of the foot at the level of the 2nd 3rd and 4th MTP. No organized fluid collection or magdalene soft tissue abscess noted. MRI/Lower Ext/No Jt/w/o IMPRESSION: 1. No evidence of fracture or malalignment. 2. Interval development of a mild to moderate edema involving the head and neck of the 5th metatarsal. Developing osteomyelitis is a consideration. 3. No other bony abnormalities developed in the interval. 4. Extensive soft tissue edema and cellulitis involving the plantar surface of foot at the level of the 2nd through 4th MTP. No organized fluid collection or abscess however noted in the soft tissues. Electronically Signed: Josh France MD at 0:55 EST ,
[2024-02-21 02:38] LABS: Bedside Glucose 376 mg/dL (74-106)
[2024-02-21] MEDS: 0.9% Normal Saline (1000mL) 1,000 ML 70 ML IV (04:11)
--- NOTE | 2024-02-21 04:21 | PCM.RX.CS ---
Consult Antibiotic Management Pharmacy has been consulted to manage selected antibiotic: Vancomycin Type of Intervention Type of Consult: New start Suspected Infection Suspected Infection: Skin/Soft tissue Labs Labs: Sodium 134 mmol/L (136-145) L 02/20/24 23:57 Potassium 3.6 mmol/L (3.5-5.1) 02/20/24 23:57 Chloride 100 mmol/L (98-107) 02/20/24 23:57 Carbon Dioxide 27.0 mmol/L (21.0-32.0) 02/20/24 23:57 Anion Gap 7 (5-15) 02/20/24 23:57 BUN 15 mg/dL (7-18) 02/20/24 23:57 Creatinine 0.76 mg/dL (0.55-1.02) 02/20/24 23:57 Est GFR (MDRD) Af Amer 102 mL/min (>60) 02/20/24 23:57 Est GFR (MDRD) Non-Af 84 mL/min (>60) 02/20/24 23:57 BUN/Creatinine Ratio 19.6 RATIO (10-20) 02/20/24 23:57 Glucose 478 mg/dL (74-106) H* 02/20/24 23:57 Dosing Weight Weight used for dosin kg Estimated Creatinine Clearance Estimated Creatinine Clearance: 77 Goal Trough Goal Trough: 15-20 mcg/mL Pharmacy Plan for Drug Dosing Pharmacy Plan for Drug Dosing: Pharmacy Service will continue to monitor and adjust dosing as required. Follow-Up Labs Follow-Up Labs: Trough: Vancomycin Date/Time Labs Ordered Labs to be done on [date and time ordered]: 02/22/24 @1237
[2024-02-21 05:35] LABS: Probe Check PASS; Staph aureus DNA By PCR POSITIVE (Negative)
[2024-02-21 05:36] LABS: M R Staph aureus DNA By PCR POSITIVE (Negative)
--- NOTE | 2024-02-21 05:38 | NURSING ---
DR RUVALCABA NOTIFIED OF (+) MRSA IN FOOT WOUND
[2024-02-21] MEDS: Piperacil/Tazobactam 3.375 GM in 0.9% Normal Saline (50mL MB+) 50 ML IV ×3 (05:45→20:37)
[2024-02-21] MEDS: Nystatin Powder 15gm Bottle 1 APPLIC TOPICAL ×2 (05:47→15:22)
[2024-02-21] MEDS: hydrOXYzine PAM 25 MG Capsule 50 MG PO ×3 (05:48→22:07)
[2024-02-21] MEDS: Morphine 2 MG/ML Syringe IV ×4 (05:48→20:51)
[2024-02-21] MEDS: busPIRone 5 MG Tablet 10 MG PO ×3 (05:48→22:07)
[2024-02-21 08:00] LABS: Absolute Lymphocyte Count 1.48 X10^3/uL (0.83-4.51); Absolute Neutrophil Count 3.8 X10^3/uL (2.0-7.7); Basophil# 0.03 X10^3/uL; Basophil% 0.5 % (0-1); Eosinophil# 0.15 X10^3/uL; Eosinophils% 2.4 % (0-5); Hematocrit 42.3 % (37-47); Hemoglobin 13.6 g/dL (12.0-15.0); Lymphocyte # 1.48 X10^3/ul (0.83-4.51); Mean Corp Hgb Conc 32.2 g/dL (32-36); Mean Corpuscular Hgb 28.2 pg (27.0-32.0); Mean Corpuscular Volume 87.6 fL (81-99); Mean Platelet Vol. 11.1 fl (6.2-12.0); Monocyte# 0.65 X10^3/uL; Monocyte% 10.5 % (0-10); NRBC Flagged by Analyzer 0 % (0-5); Neutrophil # 3.83 X10^3/uL (2.7-7.7); Neutrophil % 62.1 % (47-70); Platelet Count 196 K/mm3 (150-450); RBC Distribution Width CV 12.7 % (11.6-14.6); RBC Distribution Width SD 40.5 fl (35.1-43.9); Red Blood Count 4.83 M/mm3 (4.2-5.4); White Blood Count 6.2 K/mm3 (4.4-11.0)
[2024-02-21 09:03] LABS: AST(SGOT) 54 U/L (15-37); Alanine Aminotransfer ALT/SGPT 81 U/L (13-56); Albumin, Serum 2.8 g/dL (3.2-5.0); Alkaline Phosphatase 132 U/L (45-117); Anion Gap 7 (5-15); BUN 11 mg/dL (7-18); BUN/Creat Ratio 18.4 RATIO (10-20); Calcium,Total 8.5 mg/dL (8.5-10.1); Chloride 104 mmol/L (98-107); EST Glomerular Filtration Rate 111 mL/min (>60); Est Glom Filt Rate - Afr Amer 135 mL/min (>60); Estimated Creatinine Clearance 97.57 ml/min; Globulin 2.7 g/dL (2.2-4.2); Glucose 381 mg/dL (74-106); Magnesium 1.8 mg/dL (1.6-2.6); Phosphorus 3.7 mg/dL (2.5-4.9); Potassium 3.7 mmol/L (3.5-5.1); Protein, Total 5.5 g/dL (6.4-8.2); Sodium Level 138 mmol/L (136-145)
[2024-02-21] MEDS: Insulin Lispro 100 UNIT/ML INSULN.PEN SC ×4 (09:52→22:10)
[2024-02-21] MEDS: Insulin Lispro 100 UNIT/ML INSULN.PEN 10 UNIT SC ×4 (09:53→22:09)
[2024-02-21] MEDS: 0.9% Saline Lock 10 ML Syringe IV ×4 (09:58→20:52)
[2024-02-21] MEDS: Insulin Glargine-YFGN 100 UNIT/ML Pen 30 UNIT SC (10:03)
[2024-02-21] MEDS: lamoTRIgine 25 MG Tablet PO (10:08)
[2024-02-21] MEDS: Enoxaparin 40 MG/0.4 ML Syringe SC (10:08)
[2024-02-21] MEDS: ARIPiprazole 5 MG Tablet PO (10:08)
[2024-02-21] MEDS: QUEtiapine 100 MG Tablet PO (10:09)
[2024-02-21] MEDS: Pantoprazole Sodium 40 MG Tablet PO (10:09)
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
--- NOTE | 2024-02-21 13:52 | PN.HOSP_ITS ---
Reason for Visit Reason for Visit: Diagnoses Type 2 diabetes mellitus with foot ulcer (02/21/24) Bipolar disorder, unspecified (02/21/24) Cellulitis of right lower limb (02/21/24) Non-pressure chronic ulcer of other part of right foot limited to breakdown of skin (02/21/24) Non-pressure chronic ulcer of other part of right foot with unspecified severity (02/21/24) Other specified health status (02/21/24) Patient's noncompliance with other medical treatment and regimen due to unspecified reason (02/21/24) Objective Data Objective Data Vital Signs: Vital Signs Temp Pulse Resp BP Pulse Ox O2 Del Method 98.5 F 81 14 110/60 94 Room Air 02/21/24 10:05 02/21/24 10:48 02/21/24 10:05 02/21/24 10:05 02/21/24 10:48 02/21/24 10:48 Oxygen Delivery Method Room Air Weight: 140 lb 12.8 oz Body Mass Index (BMI) 23.4 Intake & Output: Intake and Output for Last 24 Hours 02/19/24 02/20/24 02/21/24 23:59 23:59 23:59 Intake Total 2105 / 2105 Balance 2105 / 2105 Lab / Micro Data 02/21/24 06:20 02/21/24 06:20 Labs: Laboratory Results - last 24 hr 02/20/24 23:57: WBC 8.1, RBC 5.48 H, Hgb 15.8 H, Hct 47.3 H, MCV 86.3, MCH 28.8, MCHC 33.4, RDW Std Deviation 39.3, RDW Coeff of Cele 12.7, Plt Count 250, MPV 10.9, Immature Gran % (Auto) 2.900 H, Neut % (Auto) 68.2, Lymph % (Auto) 15.4 L, [place] % (Auto) 10.6 H, Eos % (Auto) 2.0, Baso % (Auto) 0.9, Absolute Neuts (auto) 5.5, Absolute Lymphs (auto) 1.24, Nucleated RBC % 0.2, ESR 9, PT 12.7, INR 1.0, Sodium 134 L, Potassium 3.6, Chloride 100, Carbon Dioxide 27.0, Anion Gap 7, BUN 15, Creatinine 0.76, Estim Creat Clear Calc 77.03, Est GFR (MDRD) Af Amer 102, Est GFR (MDRD) Non-Af 84, BUN/Creatinine Ratio 19.6, Glucose 478 H*, Lactic Acid 1.5, Calcium 8.7, C-React Prot Ext Range < 2.90 02/21/24 00:05: Acetone Level NEGATIVE 02/21/24 02:18: POC Glucose 376 H 02/21/24 03:38: S.aureus Protein A PCR POSITIVE H, MRSA (PCR) POSITIVE H 02/21/24 06:20: WBC 6.2, RBC 4.83, Hgb 13.6, Hct 42.3, MCV 87.6, MCH 28.2, MCHC 32.2, RDW Std Deviation 40.5, RDW Coeff of Cele 12.7, Plt Count 196, MPV 11.1, Immature Gran % (Auto) 0.500, Neut % (Auto) 62.1, Lymph % (Auto) 24.0, [place] % (Auto) 10.5 H, Eos % (Auto) 2.4, Baso % (Auto) 0.5, Absolute Neuts (auto) 3.8, Absolute Lymphs (auto) 1.48, Nucleated RBC % 0, Sodium 138, Potassium 3.7, Chloride 104, Carbon Dioxide 27.0, Anion Gap 7, BUN 11, Creatinine 0.60, Estim Creat Clear Calc 97.57, Est GFR (MDRD) Af Amer 135, Est GFR (MDRD) Non-Af 111, BUN/Creatinine Ratio 18.4, Glucose 381 H, Calcium 8.5, Phosphorus 3.7, Magnesium 1.8, Total Bilirubin 0.30, AST 54 H, ALT 81 H, Alkaline Phosphatase 132 H, Total Protein 5.5 L, Albumin 2.8 L, Globulin 2.7, Albumin/Globulin Ratio 1.0 Micro: Microbiology 02/21/24 03:38 Ulcer, Decubitus - Right Foot Gram Stain - Final Radiography Diagnostic Testing: Radiology Impression Foot X-Ray 02/21/24 00:06 IMPRESSION: 1. Persistent fracture of the proximal phalanx of fifth toe. 2. Soft tissue swelling without definite osteomyelitis. Electronically Signed: Prema Potter MD at 2:10 EST Reading Location ID and State: [facility] / [place] , Service support , Physical Exam Narrative Seen and examined. Patient also smokes cigarettes half pack per day. No fever. Has history of MRSA infection 4 to 5 months ago. Started smoking in her early 20s. Moved to the local extractor machine [place] from [place]. Does not have established PCP Physical exam General: Alert, Oriented x3, Cooperative HEENT: Atraumatic, PERRLA, EOMI, Normocephalic Oral: No Gingival or Mucosal Lesions/ Ulcerations Neck: Supple, No JVD, Negative Carotid Bruits Chest wall/Lungs: Air entry diminished in bilateral lung bases. No crepitation/rhonchi Cardiovascular: Regular rate, Regular Rhythm, Normal S1, Normal S2, No M/G/R Abdomen: Bowel Sounds Present, Soft, Non Tender, Non-Distended : No dysuria. No renal angle tenderness. No suprapubic tenderness. Extremities: No edema, Capillary Refill Less than 3 Seconds Skin: Ulcer over the plantar aspect of the left foot between first and second toe. Localized cellulitis. Pain, swelling in redness over the right foot. Musculoskeletal: No Tenderness to Palpation of Joints or Extremities Neurological: Cranial nerves II-XII grossly intact, DTR 2+/4. Neuropathy, decreased sensation in the foot Psych/Mental Status: Normal Affect, Appropriate. Assessment & Plan Assessment/Plan (1) Cellulitis of foot, right: (2) Diabetic ulcer of right foot: QUALIFIERS: Diabetic foot ulcer location: toe Diabetes mellitus type: type 2 Non-pressure ulcer stage: limited to breakdown of skin Qualified Code(s): E11.621 - Type 2 diabetes mellitus with foot ulcer; L97.511 - Non- pressure chronic ulcer of other part of right foot limited to breakdown of skin (3) Insulin dependent diabetes mellitus: (4) Failure of outpatient treatment: (5) Medical non-compliance: (6) Bipolar 1 disorder, depressed: PLAN: Plan 53-year-old female was admitted with ulcer at the plantar aspect of right foot between first and second toe and localized cellulitis. 1. Cellulitis of the Right Foot and contiguous cellulitis the second toe of the Right Foot - Admit to general medical floor. Continue empiric IV Zosyn and IV Vancomycin and await culture and sensitivity. Check MRSA PCR of wound. Pain control. Consult Dr. Villagran of the podiatry service. MRSA PCR is positive. Foot x-ray shows persistent fracture of proximal phalanx of fifth toe with soft tissue swelling without definite evidence of osteomyelitis. MRI foot is ordered 2. Failure of Outpatient Antibiotic Treatment complicating #1 - Noted. 3. DM-2; uncontrolled with hyperglycemia and diabetic neuropathy worsened due to Medical nonadherence- Noted. Case Management will be consulted to get additional resources for this patient in an effort to prevent further serial readmission. 02/20: Glucose is high 309 and 376. Lantus insulin dose increased. 4. History of Cellulitis with a Large Left lower abdominal wall Abscess admitted here from 11/11/2023 to 11/14/2023 that was complicated by medical noncompliance with patient then leaving this hospital AMA and then also not getting her prescriptions filled - Noted. 5. Tobacco abuse - Tobacco Cessation will be strongly encouraged with Nicotine patch offered to control cravings. 6. History of cocaine abuse along with history of suicide attempt via intentional drug overdose - Noted. [place] UDS pending this admission to confirm suspicion of relapse. 7. Bipolar disorder - Resume home regimen as before. 8. History of HEBER - Start nocturnal CPAP. 9. History of sarcoidosis - Noted with no signs of active disease at this time. 10. GERD - Continue PPI as previous. 11. History of brain surgery - Noted. 12. History of perirectal abscess - Noted with no signs of recurrence. 13. History of Right total adrenalectomy - Noted. 14. History of appendectomy - Noted. 15. Remote history of - Noted for the sake of completeness. 16. OA; with low back pain - Give Tylenol prn. 17. DVT prophylaxis - Lovenox 40 mg sq daily. Microbiology Past 72 Hours 02/21/24 03:38 Ulcer, Decubitus - Right Foot Gram Stain - Final Laboratory Results 02/20/24 23:57: WBC 8.1, RBC 5.48 H, Hgb 15.8 H, Hct 47.3 H, MCV 86.3, MCH 28.8, MCHC 33.4, RDW Std Deviation 39.3, RDW Coeff of Cele 12.7, Plt Count 250, MPV 10.9, Immature Gran % (Auto) 2.900 H, Neut % (Auto) 68.2, Lymph % (Auto) 15.4 L, [place] % (Auto) 10.6 H, Eos % (Auto) 2.0, Baso % (Auto) 0.9, Absolute Neuts (auto) 5.5, Absolute Lymphs (auto) 1.24, Nucleated RBC % 0.2, ESR 9, PT 12.7, INR 1.0, Sodium 134 L, Potassium 3.6, Chloride 100, Carbon Dioxide 27.0, Anion Gap 7, BUN 15, Creatinine 0.76, Estim Creat Clear Calc 77.03, Est GFR (MDRD) Af Amer 102, Est GFR (MDRD) Non-Af 84, BUN/Creatinine Ratio 19.6, Glucose 478 H*, Lactic Acid 1.5, Calcium 8.7, C-React Prot Ext Range < 2.90 02/21/24 00:05: Acetone Level NEGATIVE 02/21/24 02:18: POC Glucose 376 H 02/21/24 03:38: S.aureus Protein A PCR POSITIVE H, MRSA (PCR) POSITIVE H 02/21/24 06:20: WBC 6.2, RBC 4.83, Hgb 13.6, Hct 42.3, MCV 87.6, MCH 28.2, MCHC 32.2, RDW Std Deviation 40.5, RDW Coeff of Cele 12.7, Plt Count 196, MPV 11.1, Immature Gran % (Auto) 0.500, Neut % (Auto) 62.1, Lymph % (Auto) 24.0, [place] % (Auto) 10.5 H, Eos % (Auto) 2.4, Baso % (Auto) 0.5, Absolute Neuts (auto) 3.8, Absolute Lymphs (auto) 1.48, Nucleated RBC % 0, Sodium 138, Potassium 3.7, Chloride 104, Carbon Dioxide 27.0, Anion Gap 7, BUN 11, Creatinine 0.60, Estim Creat Clear Calc 97.57, Est GFR (MDRD) Af Amer 135, Est GFR (MDRD) Non-Af 111, BUN/Creatinine Ratio 18.4, Glucose 381 H, Calcium 8.5, Phosphorus 3.7, Magnesium 1.8, Total Bilirubin 0.30, AST 54 H, ALT 81 H, Alkaline Phosphatase 132 H, Total Protein 5.5 L, Albumin 2.8 L, Globulin 2.7, Albumin/Globulin Ratio 1.0 Clinical Impression(s) from Imaging Studies Foot X-Ray 02/21/24 00:06 IMPRESSION: 1. Persistent fracture of the proximal phalanx of fifth toe. 2. Soft tissue swelling without definite osteomyelitis. E Charges/Coding Visit Charges Inpatient E&M: 42389 Subs Hosp L2
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
--- NOTE | 2024-02-21 15:00 | CHAPLAIN ---
Type of Pastoral Visit ___ Initial Visit ___ Follow-up Visit ___ On-call Visit ___ General Patient Visit ___ Spiritual Assessment ___ Family Conference ___ Bereavement ___ Rapid Response ___ Code Blue ___ Other (describe below) Pastoral Care Referral From ___ Patient ___ Family ___ Nurse ___ Physician ___ Automobile Mechanic Assistant ___ Lapel Padder Blindstitch ___ Other (describe below) Sacrament/Intervention ___ Active listening ___ Anointing ___ Spiritism ___ Bereavement ___ Communion ___ Latha exploration ___ ___ Life review ___ Prayer ___ Reconciliation ___ Sacrament of Sick ___ Supportive presence ___ Wedding ___ Other (describe below) Pastoral Comments went to room and patient was alert; offered support and patient stated that she was pretty tired and would ask water and gas helper to come back another time
[2024-02-21] MEDS: Juven (unflavored) Packet 1 PACKET PO (16:45)
[2024-02-21] MEDS: Methocarbamol 750 MG Tablet PO (17:10)
[2024-02-21 17:22] LABS: Bedside Glucose 311 mg/dL (74-106)
[2024-02-21 17:22] LABS: Bedside Glucose 213 mg/dL (74-106)
[2024-02-21 17:22] LABS: Bedside Glucose 408 mg/dL (74-106)
[2024-02-21] MEDS: QUEtiapine 100 MG Tablet 200 MG PO (22:07)
[2024-02-21] MEDS: Doxepin Hcl 25 MG Capsule PO (22:07)
[2024-02-21] MEDS: Insulin Glargine-YFGN 100 UNIT/ML Pen 20 UNIT SC (22:08)
[2024-02-21 23:04] LABS: Bedside Glucose 357 mg/dL (74-106)
[2024-02-22] VITALS (9 sets, daily range): BP systolic 89–119; BP diastolic 48–72; PULSE 74–91; RESP 15–18; TEMP 36.6–36.9; O2SAT 92–97; BMI 23.4
[2024-02-22] MEDS: Vancomycin IV 1,000 MG/200 ML BAG 200 MG IV (01:26)
[2024-02-22 02:07] LABS: Bedside Glucose 417 mg/dL (74-106)
[2024-02-22 06:23] LABS: Absolute Lymphocyte Count 1.09 X10^3/uL (0.83-4.51); Absolute Neutrophil Count 2.7 X10^3/uL (2.0-7.7); Basophil# 0.03 X10^3/uL; Basophil% 0.7 % (0-1); Eosinophil# 0.14 X10^3/uL; Eosinophils% 3.1 % (0-5); Hematocrit 40.8 % (37-47); Hemoglobin 13.6 g/dL (12.0-15.0); Lymphocyte # 1.09 X10^3/ul (0.83-4.51); Lymphocyte % 24.2 % (19-41); Mean Corp Hgb Conc 33.3 g/dL (32-36); Mean Corpuscular Hgb 28.8 pg (27.0-32.0); Mean Corpuscular Volume 86.3 fL (81-99); Monocyte# 0.47 X10^3/uL; Monocyte% 10.4 % (0-10); NRBC Flagged by Analyzer 0 % (0-5); Neutrophil # 2.74 X10^3/uL (2.7-7.7); Neutrophil % 60.7 % (47-70); Platelet Count 180 K/mm3 (150-450); RBC Distribution Width CV 12.7 % (11.6-14.6); RBC Distribution Width SD 39.8 fl (35.1-43.9); Red Blood Count 4.73 M/mm3 (4.2-5.4); White Blood Count 4.5 K/mm3 (4.4-11.0)
[2024-02-22] MEDS: Piperacil/Tazobactam 3.375 GM in 0.9% Normal Saline (50mL MB+) 50 ML IV ×2 (06:30→14:45)
[2024-02-22 06:57] LABS: Anion Gap 4 (5-15); BUN 13 mg/dL (7-18); Calcium,Total 8.6 mg/dL (8.5-10.1); Chloride 108 mmol/L (98-107); Creatinine, Serum 0.45 mg/dL (0.55-1.02); EST Glomerular Filtration Rate 156 mL/min (>60); Est Glom Filt Rate - Afr Amer 188 mL/min (>60); Glucose 287 mg/dL (74-106); Potassium 3.7 mmol/L (3.5-5.1); Sodium Level 140 mmol/L (136-145)
[2024-02-22] MEDS: Insulin Lispro 100 UNIT/ML INSULN.PEN 10 UNIT SC ×4 (07:59→22:08)
[2024-02-22] MEDS: Insulin Lispro 100 UNIT/ML INSULN.PEN SC ×4 (07:59→22:08)
[2024-02-22] MEDS: Juven (unflavored) Packet 1 PACKET PO ×2 (08:00→16:14)
[2024-02-22] MEDS: Insulin Glargine-YFGN 100 UNIT/ML Pen 20 UNIT SC ×2 (08:01→22:07)
[2024-02-22] MEDS: ARIPiprazole 5 MG Tablet PO (08:02)
[2024-02-22] MEDS: lamoTRIgine 25 MG Tablet PO (08:03)
[2024-02-22] MEDS: Pantoprazole Sodium 40 MG Tablet PO (08:04)
[2024-02-22] MEDS: QUEtiapine 100 MG Tablet PO (08:05)
[2024-02-22] MEDS: Enoxaparin 40 MG/0.4 ML Syringe SC (08:15)
[2024-02-22] MEDS: Acetaminophen 325 MG Tablet 650 MG PO (08:16)
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
--- NOTE | 2024-02-22 09:38 | ART_ITS ---
Reason For Study: Ulcer Procedure A bilateral lower extremity continuous wave Doppler with analog waveform analysis,segmental pressures,and ankle brachial indexes without exercise. Left Segmental Pressures Left brachial= 114mmHg. Left posterior tibial artery = 128mmHg. Left dorsalis pedis artery = 140mmHg. Left digit = 117 mmHg. Right Segmental Pressures Right posterior tibial artery = 139mmHg. Right dorsalis pedis artery = 148mmHg. Indices The right ankle brachial index by the posterior tibial artery is 1.22. The right ankle brachial index by the dorsalis pedis is 1.30. The left ankle brachial index by the posterior tibial artery is 1.12. The left ankle brachial index by the dorsalis pedis is 1.23. The left digital-brachial index is 1.03. VL/Lower Ext Art Exam w/o Exercis Interpretation Summary Right LEO 1.3, normal. Doppler/PVR waveforms of the right leg normal at rest. T BI not obtained due to digit wound. Left LEO 1.23, normal. TBI and Doppler/PVR waveforms of the left leg normal at rest. Ordering Physician: Sudhir Abad Referring Physician: LEONIDAS ABAD Performed By: ADILIA RODRIGUEZ T
[2024-02-22] MEDS: Morphine 2 MG/ML Syringe IV ×3 (09:56→20:39)
[2024-02-22] MEDS: 0.9% Saline Lock 10 ML Syringe IV ×2 (11:15→20:39)
[2024-02-22 11:40] LABS: Bedside Glucose 387 mg/dL (74-106)
[2024-02-22 13:09] LABS: Vancomycin, Trough Level 6.9 ug/mL (5.0-15.0)
[2024-02-22] MEDS: Vancomycin Trough/Random Due 1 LAB MC (13:15)
--- NOTE | 2024-02-22 13:29 | PCM.RX.CS ---
Consult Antibiotic Management Pharmacy has been consulted to manage selected antibiotic: Vancomycin Type of Intervention Type of Consult: Follow-up Suspected Infection Suspected Infection: Skin/Soft tissue Prior Doses of Antibiotics Prior Doses of Antibiotics Received/Current Regimen: Vancomycin 1000 mg last given 02/22/24 @ 0126 Labs Labs: Sodium 140 mmol/L (136-145) 02/22/24 05:30 Potassium 3.7 mmol/L (3.5-5.1) 02/22/24 05:30 Chloride 108 mmol/L (98-107) H 02/22/24 05:30 Carbon Dioxide 28.0 mmol/L (21.0-32.0) 02/22/24 05:30 Anion Gap 4 (5-15) L 02/22/24 05:30 BUN 13 mg/dL (7-18) 02/22/24 05:30 Creatinine 0.45 mg/dL (0.55-1.02) L 02/22/24 05:30 Est GFR (MDRD) Af Amer 188 mL/min (>60) 02/22/24 05:30 Est GFR (MDRD) Non-Af 156 mL/min (>60) 02/22/24 05:30 BUN/Creatinine Ratio 29.0 RATIO (10-20) H 02/22/24 05:30 Glucose 287 mg/dL (74-106) H 02/22/24 05:30 Vancomycin Trough 6.9 ug/mL (5.0-15.0) 02/22/24 12:35 Microbiology Microbiology: Microbiology 02/21/24 03:38 Ulcer, Decubitus - Right Foot Gram Stain - Final 02/21/24 03:38 Ulcer, Decubitus - Right Foot Wound Culture - Preliminary Mixed Gram Positive Organisms Dosing Weight Weight used for dosin lb 1.533 oz Estimated Creatinine Clearance Estimated Creatinine Clearance: ~ 130 Goal Trough Goal Trough: 15-20 mcg/mL Pharmacy Plan for Drug Dosing Pharmacy Plan for Drug Dosing: Vancomycin trough = 6.9, will increase dose to 1250 mg Q8H Pharmacy Service will continue to monitor and adjust dosing as required. Follow-Up Labs Follow-Up Labs: Trough: Vancomycin Date/Time Labs Ordered Labs to be done on [date and time ordered]: 02/23/24 @ 1300
--- NOTE | 2024-02-22 14:23 | PCM.PN.HOSP ---
Reason for Visit Reason for Visit: Diagnoses Type 2 diabetes mellitus with foot ulcer (02/21/24) Bipolar disorder, unspecified (02/21/24) Cellulitis of right lower limb (02/21/24) Non-pressure chronic ulcer of other part of right foot limited to breakdown of skin (02/21/24) Non-pressure chronic ulcer of other part of right foot with fat layer exposed (02/21/24) Non-pressure chronic ulcer of other part of right foot with unspecified severity (02/21/24) Other specified health status (02/21/24) Patient's noncompliance with other medical treatment and regimen due to unspecified reason (02/21/24) Objective Data Objective Data Vital Signs: Vital Signs Temp Pulse Resp BP Pulse Ox O2 Del Method 98.5 F 85 18 104/59 L 94 Room Air 02/22/24 07:52 02/22/24 07:52 02/22/24 07:52 02/22/24 07:52 02/22/24 07:52 02/22/24 07:52 Oxygen Delivery Method Room Air Weight: 140 lb 12.595 oz Body Mass Index (BMI) 23.4 Intake & Output: Intake and Output for Last 24 Hours 02/20/24 02/21/24 02/22/24 23:59 23:59 23:59 Intake Total 3755 / 3755 500 / 500 Balance 3755 / 3755 500 / 500 Lab / Micro Data 02/22/24 05:30 02/22/24 05:30 Labs: Laboratory Results - last 24 hr 02/21/24 09:50: POC Glucose 408 H 02/21/24 12:38: POC Glucose 213 H 02/21/24 16:30: POC Glucose 311 H 02/21/24 22:06: POC Glucose 357 H 02/22/24 01:48: POC Glucose 417 H 02/22/24 05:30: WBC 4.5, RBC 4.73, Hgb 13.6, Hct 40.8, MCV 86.3, MCH 28.8, MCHC 33.3, RDW Std Deviation 39.8, RDW Coeff of Cele 12.7, Plt Count 180, MPV 11.0, Immature Gran % (Auto) 0.900, Neut % (Auto) 60.7, Lymph % (Auto) 24.2, [place] % (Auto) 10.4 H, Eos % (Auto) 3.1, Baso % (Auto) 0.7, Absolute Neuts (auto) 2.7, Absolute Lymphs (auto) 1.09, Nucleated RBC % 0, Sodium 140, Potassium 3.7, Chloride 108 H, Carbon Dioxide 28.0, Anion Gap 4 L, BUN 13, Creatinine 0.45 L, Estim Creat Clear Calc 130.10, Est GFR (MDRD) Af Amer 188, Est GFR (MDRD) Non-Af 156, BUN/Creatinine Ratio 29.0 H, Glucose 287 H, Calcium 8.6 02/22/24 11:13: POC Glucose 387 H 02/22/24 12:35: Vancomycin Trough 6.9 Micro: Microbiology 02/21/24 03:38 Ulcer, Decubitus - Right Foot Gram Stain - Final 02/21/24 03:38 Ulcer, Decubitus - Right Foot Wound Culture - Preliminary Mixed Gram Positive Organisms Radiography Diagnostic Testing: Radiology Impression Lower Extremity MRI 02/21/24 02:16 IMPRESSION: 1. No evidence of fracture or malalignment. 2. Interval development of a mild to moderate edema involving the head and neck of the 5th metatarsal. Developing osteomyelitis is a consideration. 3. No other bony abnormalities developed in the interval. 4. Extensive soft tissue edema and cellulitis involving the plantar surface of foot at the level of the 2nd through 4th MTP. No organized fluid collection or abscess however noted in the soft tissues. Electronically Signed: Josh France MD at 0:55 EST Reading Location ID and State: [facility] / [place] Tel , Service support , Social Homelessness:: Sheltered Physical Exam Narrative Seen and examined. No fever. Patient also smokes cigarettes half pack per day. No fever. Has history of MRSA infection 4 to 5 months ago. Started smoking in her early 20s. 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 Does not have established PCP Physical exam General: Alert, Oriented x3, Cooperative HEENT: Atraumatic, PERRLA, EOMI, Normocephalic Oral: No Gingival or Mucosal Lesions/ Ulcerations Neck: Supple, No JVD, Negative Carotid Bruits Chest wall/Lungs: Air entry diminished in bilateral lung bases. No crepitation/rhonchi Cardiovascular: Regular rate, Regular Rhythm, Normal S1, Normal S2, No M/G/R Abdomen: Bowel Sounds Present, Soft, Non Tender, Non-Distended : No dysuria. No renal angle tenderness. No suprapubic tenderness. Extremities: No edema, Capillary Refill Less than 3 Seconds Skin: Ulcer over the plantar aspect of the left foot between first and second toe. Localized cellulitis. Mild pain, swelling in redness over the right foot. Musculoskeletal: No Tenderness to Palpation of Joints or Extremities Neurological: Cranial nerves II-XII grossly intact, DTR 2+/4. Neuropathy, decreased sensation in the foot Psych/Mental Status: Normal Affect, Appropriate. Assessment & Plan Assessment/Plan (1) Cellulitis of foot, right: (2) Diabetic ulcer of right foot: QUALIFIERS: Diabetic foot ulcer location: toe Diabetes mellitus type: type 2 Non-pressure ulcer stage: limited to breakdown of skin Qualified Code(s): E11.621 - Type 2 diabetes mellitus with foot ulcer; L97.511 - Non-pressure chronic ulcer of other part of right foot limited to breakdown of skin (3) Insulin dependent diabetes mellitus: (4) Failure of outpatient treatment: (5) Medical non-compliance: (6) Bipolar 1 disorder, depressed: PLAN: Plan 53-year-old female was admitted with ulcer at the plantar aspect of right foot between first and second toe and localized cellulitis. 1. Cellulitis of the Right Foot and contiguous cellulitis the second toe of the Right Foot - Admit to general medical floor. Continue empiric IV Zosyn and IV Vancomycin and await culture and sensitivity. Check MRSA PCR of wound. Pain control. Consult Dr. Villagran of the podiatry service. MRSA PCR is positive. Foot x-ray shows persistent fracture of proximal phalanx of fifth toe with soft tissue swelling without definite evidence of osteomyelitis. MRI foot is ordered 02/21: MRI foot reviewed. There is suspicion of osteomyelitis. Plantar ulcer between first and second toe. Plan for OR on Saturday. 2. Failure of Outpatient Antibiotic Treatment complicating #1 - Noted. 3. DM-2; uncontrolled with hyperglycemia and diabetic neuropathy worsened due to Medical nonadherence- Noted. Case Management will be consulted to get additional resources for this patient in an effort to prevent further serial readmission. 02/20: Glucose is high 309 and 376. Lantus insulin dose increased. 4. History of Cellulitis with a Large Left lower abdominal wall Abscess admitted here from 11/11/2023 to 11/14/2023 that was complicated by medical noncompliance with patient then leaving this hospital AMA and then also not getting her prescriptions filled - Noted. 5. Tobacco abuse - Tobacco Cessation will be strongly encouraged with Nicotine patch offered to control cravings. 6. History of cocaine abuse along with history of suicide attempt via intentional drug overdose - Noted. [place] UDS pending this admission to confirm suspicion of relapse. 7. Bipolar disorder - Resume home regimen as before. 8. History of HEBER - Start nocturnal CPAP. 9. History of sarcoidosis - Noted with no signs of active disease at this time. 10. GERD - Continue PPI as previous. 11. History of brain surgery - Noted. 12. History of perirectal abscess - Noted with no signs of recurrence. 13. History of Right total adrenalectomy - Noted. 14. History of appendectomy - Noted. 15. Remote history of - Noted for the sake of completeness. 16. OA; with low back pain - Give Tylenol prn. 17. DVT prophylaxis - Lovenox 40 mg sq daily. Microbiology Past 72 Hours 02/21/24 03:38 Ulcer, Decubitus - Right Foot Gram Stain - Final Laboratory Results 02/20/24 23:57: WBC 8.1, RBC 5.48 H, Hgb 15.8 H, Hct 47.3 H, MCV 86.3, MCH 28.8, MCHC 33.4, RDW Std Deviation 39.3, RDW Coeff of Cele 12.7, Plt Count 250, MPV 10.9, Immature Gran % (Auto) 2.900 H, Neut % (Auto) 68.2, Lymph % (Auto) 15.4 L, [place] % (Auto) 10.6 H, Eos % (Auto) 2.0, Baso % (Auto) 0.9, Absolute Neuts (auto) 5.5, Absolute Lymphs (auto) 1.24, Nucleated RBC % 0.2, ESR 9, PT 12.7, INR 1.0, Sodium 134 L, Potassium 3.6, Chloride 100, Carbon Dioxide 27.0, Anion Gap 7, BUN 15, Creatinine 0.76, Estim Creat Clear Calc 77.03, Est GFR (MDRD) Af Amer 102, Est GFR (MDRD) Non-Af 84, BUN/Creatinine Ratio 19.6, Glucose 478 H*, Lactic Acid 1.5, Calcium 8.7, C-React Prot Ext Range < 2.90 02/21/24 00:05: Acetone Level NEGATIVE 02/21/24 02:18: POC Glucose 376 H 02/21/24 03:38: S.aureus Protein A PCR POSITIVE H, MRSA (PCR) POSITIVE H 02/21/24 06:20: WBC 6.2, RBC 4.83, Hgb 13.6, Hct 42.3, MCV 87.6, MCH 28.2, MCHC 32.2, RDW Std Deviation 40.5, RDW Coeff of Cele 12.7, Plt Count 196, MPV 11.1, Immature Gran % (Auto) 0.500, Neut % (Auto) 62.1, Lymph % (Auto) 24.0, [place] % (Auto) 10.5 H, Eos % (Auto) 2.4, Baso % (Auto) 0.5, Absolute Neuts (auto) 3.8, Absolute Lymphs (auto) 1.48, Nucleated RBC % 0, Sodium 138, Potassium 3.7, Chloride 104, Carbon Dioxide 27.0, Anion Gap 7, BUN 11, Creatinine 0.60, Estim Creat Clear Calc 97.57, Est GFR (MDRD) Af Amer 135, Est GFR (MDRD) Non-Af 111, BUN/Creatinine Ratio 18.4, Glucose 381 H, Calcium 8.5, Phosphorus 3.7, Magnesium 1.8, Total Bilirubin 0.30, AST 54 H, ALT 81 H, Alkaline Phosphatase 132 H, Total Protein 5.5 L, Albumin 2.8 L, Globulin 2.7, Albumin/Globulin Ratio 1.0 Clinical Impression(s) from Imaging Studies Foot X-Ray 02/21/24 00:06 IMPRESSION: 1. Persistent fracture of the proximal phalanx of fifth toe. 2. Soft tissue swelling without definite osteomyelitis. E Charges/Coding Visit Charges Inpatient E&M: 19310 Subs Hosp L2
[2024-02-22] MEDS: Vancomycin HCl 1,250 MG in 0.9% Normal Saline (250mL Bag) 250 ML 167 MG IV ×2 (14:30→21:58)
[2024-02-22] MEDS: hydrOXYzine PAM 25 MG Capsule 50 MG PO ×2 (14:31→21:59)
[2024-02-22] MEDS: busPIRone 5 MG Tablet 10 MG PO ×2 (14:31→21:58)
[2024-02-22] MEDS: Nystatin Powder 15gm Bottle 1 APPLIC TOPICAL (14:32)
--- NOTE | 2024-02-22 15:03 | CPS ---
1455 Pt was eating at time of SMI and Pep check. Pt had been observed earlier in day performing proper techniques for both. Pt was instructed to use on her own every hr while awake.
[2024-02-22 16:40] LABS: Bedside Glucose 297 mg/dL (74-106)
[2024-02-22] MEDS: MELATONIN 3 MG TABLET PO (21:58)
[2024-02-22] MEDS: Doxepin Hcl 25 MG Capsule PO (21:58)
[2024-02-22] MEDS: QUEtiapine 100 MG Tablet 200 MG PO (21:59)
[2024-02-22 22:30] LABS: Bedside Glucose 309 mg/dL (74-106)
[2024-02-23 00:07] VITALS: BP 100/66; PULSE 80; RESP 16; TEMP 36.4; O2SAT 95
[2024-02-23] MEDS: Vancomycin HCl 1,250 MG in 0.9% Normal Saline (250mL Bag) 250 ML 167 MG IV ×3 (04:36→20:31)
[2024-02-23 05:31] LABS: Absolute Lymphocyte Count 1.43 X10^3/uL (0.83-4.51); Basophil# 0.04 X10^3/uL; Eosinophil# 0.16 X10^3/uL; Eosinophils% 3.8 % (0-5); Hematocrit 40.9 % (37-47); Hemoglobin 13.4 g/dL (12.0-15.0); Lymphocyte # 1.43 X10^3/ul (0.83-4.51); Lymphocyte % 34.4 % (19-41); Mean Corp Hgb Conc 32.8 g/dL (32-36); Mean Corpuscular Hgb 28.6 pg (27.0-32.0); Mean Corpuscular Volume 87.4 fL (81-99); Mean Platelet Vol. 10.6 fl (6.2-12.0); Monocyte# 0.42 X10^3/uL; Monocyte% 10.1 % (0-10); NRBC Flagged by Analyzer 0 % (0-5); Neutrophil # 2.04 X10^3/uL (2.7-7.7); Platelet Count 192 K/mm3 (150-450); RBC Distribution Width CV 12.9 % (11.6-14.6); RBC Distribution Width SD 40.6 fl (35.1-43.9); Red Blood Count 4.68 M/mm3 (4.2-5.4); White Blood Count 4.2 K/mm3 (4.4-11.0)
[2024-02-23 06:00] VITALS: BMI 24.3
[2024-02-23 06:04] LABS: Anion Gap 5 (5-15); BUN 14 mg/dL (7-18); BUN/Creat Ratio 32.4 RATIO (10-20); Calcium,Total 8.5 mg/dL (8.5-10.1); Chloride 108 mmol/L (98-107); Creatinine, Serum 0.43 mg/dL (0.55-1.02); EST Glomerular Filtration Rate 162 mL/min (>60); Est Glom Filt Rate - Afr Amer 196 mL/min (>60); Estimated Creatinine Clearance 136.15 ml/min; Glucose 198 mg/dL (74-106); Potassium 3.4 mmol/L (3.5-5.1); Sodium Level 142 mmol/L (136-145)
[2024-02-23 06:11] VITALS: BP 98/62; PULSE 71; RESP 14; TEMP 36.2; O2SAT 96
[2024-02-23] MEDS: busPIRone 5 MG Tablet 10 MG PO ×3 (06:13→20:31)
[2024-02-23] MEDS: hydrOXYzine PAM 25 MG Capsule 50 MG PO ×3 (06:13→20:35)
[2024-02-23] MEDS: Piperacil/Tazobactam 3.375 GM in 0.9% Normal Saline (50mL MB+) 50 ML IV ×4 (06:57→20:35)
[2024-02-23 08:33] VITALS: BP 111/55; PULSE 79; RESP 18; TEMP 36.6; O2SAT 94
[2024-02-23] MEDS: Insulin Lispro 100 UNIT/ML INSULN.PEN SC ×4 (08:41→20:32)
[2024-02-23] MEDS: Juven (unflavored) Packet 1 PACKET PO ×2 (08:42→16:49)
[2024-02-23] MEDS: Insulin Lispro 100 UNIT/ML INSULN.PEN 10 UNIT SC ×2 (08:42→11:39)
[2024-02-23] MEDS: ARIPiprazole 5 MG Tablet PO (08:43)
[2024-02-23] MEDS: Pantoprazole Sodium 40 MG Tablet PO (08:43)
[2024-02-23] MEDS: QUEtiapine 100 MG Tablet PO (08:43)
[2024-02-23] MEDS: lamoTRIgine 25 MG Tablet PO (08:43)
[2024-02-23] MEDS: Insulin Glargine-YFGN 100 UNIT/ML Pen 20 UNIT SC ×2 (08:44→20:33)
[2024-02-23] MEDS: Morphine 2 MG/ML Syringe IV ×3 (08:52→20:30)
[2024-02-23] MEDS: Acetaminophen 325 MG Tablet 650 MG PO ×2 (08:52→20:40)
[2024-02-23] MEDS: Enoxaparin 40 MG/0.4 ML Syringe SC (11:35)
[2024-02-23 12:49] LABS: Bedside Glucose 280 mg/dL (74-106)
[2024-02-23 13:34] LABS: Vancomycin, Trough Level 16.3 ug/mL (5.0-15.0)
--- NOTE | 2024-02-23 13:41 | PCM.RX.CS ---
Consult Antibiotic Management Pharmacy has been consulted to manage selected antibiotic: Vancomycin Type of Intervention Type of Consult: Follow-up Suspected Infection Suspected Infection: Skin/Soft tissue Prior Doses of Antibiotics Prior Doses of Antibiotics Received/Current Regimen: Vancomycin 1250 mg Q8H, last dose given 02/23/24 @ 0436 Labs Labs: Sodium 142 mmol/L (136-145) 02/23/24 05:02 Potassium 3.4 mmol/L (3.5-5.1) L 02/23/24 05:02 Chloride 108 mmol/L (98-107) H 02/23/24 05:02 Carbon Dioxide 29.0 mmol/L (21.0-32.0) 02/23/24 05:02 Anion Gap 5 (5-15) 02/23/24 05:02 BUN 14 mg/dL (7-18) 02/23/24 05:02 Creatinine 0.43 mg/dL (0.55-1.02) L 02/23/24 05:02 Est GFR (MDRD) Af Amer 196 mL/min (>60) 02/23/24 05:02 Est GFR (MDRD) Non-Af 162 mL/min (>60) 02/23/24 05:02 BUN/Creatinine Ratio 32.4 RATIO (10-20) H 02/23/24 05:02 Glucose 198 mg/dL (74-106) H 02/23/24 05:02 Vancomycin Trough 16.3 ug/mL (5.0-15.0) H 02/23/24 13:00 Microbiology Microbiology: Microbiology 02/21/24 03:38 Ulcer, Decubitus - Right Foot Gram Stain - Final 02/21/24 03:38 Ulcer, Decubitus - Right Foot Wound Culture - Preliminary Staphylococcus aureus Gram positive leanne Dosing Weight Weight used for dosin lb 8.081 oz Estimated Creatinine Clearance Estimated Creatinine Clearance: ~ 136 Goal Trough Goal Trough: 15-20 mcg/mL Pharmacy Plan for Drug Dosing Pharmacy Plan for Drug Dosing: Vancomycin trough = 16.3, continue current dosing, trough in 2 days. Pharmacy Service will continue to monitor and adjust dosing as required. Follow-Up Labs Follow-Up Labs: Trough: Vancomycin Date/Time Labs Ordered Labs to be done on [date and time ordered]: 02/25/24 @ 1300
--- NOTE | 2024-02-23 13:42 | PCM.PN.HOSP ---
Reason for Visit Reason for Visit: Diagnoses Type 2 diabetes mellitus with foot ulcer (02/21/24) Bipolar disorder, unspecified (02/21/24) Cellulitis of right lower limb (02/21/24) Non-pressure chronic ulcer of other part of right foot limited to breakdown of skin (02/21/24) Non-pressure chronic ulcer of other part of right foot with fat layer exposed (02/21/24) Non-pressure chronic ulcer of other part of right foot with unspecified severity (02/21/24) Other specified health status (02/21/24) Patient's noncompliance with other medical treatment and regimen due to unspecified reason (02/21/24) Objective Data Objective Data Vital Signs: Vital Signs Temp Pulse Resp BP Pulse Ox O2 Del Method 97.8 F 79 18 111/55 L 94 Room Air 02/23/24 08:33 02/23/24 08:33 02/23/24 08:33 02/23/24 08:33 02/23/24 08:33 02/23/24 08:33 Oxygen Delivery Method Room Air Weight: 145 lb 15.136 oz Body Mass Index (BMI) 24.3 Intake & Output: Intake and Output for Last 24 Hours 02/21/24 02/22/24 02/23/24 23:59 23:59 23:59 Intake Total 3755 / 3755 1700.00 / 1700.00 575 / 575 Balance 3755 / 3755 1700.00 / 1700.00 575 / 575 Lab / Micro Data 02/23/24 05:02 02/23/24 05:02 Labs: Laboratory Results - last 24 hr 02/22/24 16:10: POC Glucose 297 H 02/22/24 22:06: POC Glucose 309 H 02/23/24 05:02: WBC 4.2 L, RBC 4.68, Hgb 13.4, Hct 40.9, MCV 87.4, MCH 28.6, MCHC 32.8, RDW Std Deviation 40.6, RDW Coeff of Cele 12.9, Plt Count 192, MPV 10.6, Immature Gran % (Auto) 1.700 H, Neut % (Auto) 49.0, Lymph % (Auto) 34.4, [place] % (Auto) 10.1 H, Eos % (Auto) 3.8, Baso % (Auto) 1.0, Absolute Neuts (auto) 2.0, Absolute Lymphs (auto) 1.43, Nucleated RBC % 0, Sodium 142, Potassium 3.4 L, Chloride 108 H, Carbon Dioxide 29.0, Anion Gap 5, BUN 14, Creatinine 0.43 L, Estim Creat Clear Calc 136.15, Est GFR (MDRD) Af Amer 196, Est GFR (MDRD) Non-Af 162, BUN/Creatinine Ratio 32.4 H, Glucose 198 H, Calcium 8.5 02/23/24 11:37: POC Glucose 280 H 02/23/24 13:00: Vancomycin Trough 16.3 H Micro: Microbiology 02/21/24 03:38 Ulcer, Decubitus - Right Foot Gram Stain - Final 02/21/24 03:38 Ulcer, Decubitus - Right Foot Wound Culture - Preliminary Staphylococcus aureus Gram positive leanne Social Homelessness:: Sheltered Physical Exam Narrative Seen and examined. No fever. No acute complaint. Patient also smokes cigarettes half pack per day. No fever. Has history of MRSA infection 4 to 5 months ago. Started smoking in her early 20s. 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 Does not have established PCP Physical exam General: Alert, Oriented x3, Cooperative HEENT: Atraumatic, PERRLA, EOMI, Normocephalic Oral: No Gingival or Mucosal Lesions/ Ulcerations Neck: Supple, No JVD, Negative Carotid Bruits Chest wall/Lungs: Air entry diminished in bilateral lung bases. No crepitation/rhonchi Cardiovascular: Regular rate, Regular Rhythm, Normal S1, Normal S2, No M/G/R Abdomen: Bowel Sounds Present, Soft, Non Tender, Non-Distended : No dysuria. No renal angle tenderness. No suprapubic tenderness. Extremities: No edema, Capillary Refill Less than 3 Seconds Skin: Ulcer over the plantar aspect of the right foot between first and second toe. Localized cellulitis. Mild pain, swelling in redness over the right foot is improved. Musculoskeletal: No Tenderness to Palpation of Joints or Extremities Neurological: Cranial nerves II-XII grossly intact, DTR 2+/4. Neuropathy, decreased sensation in the foot Psych/Mental Status: Normal Affect, Appropriate. Assessment & Plan Assessment/Plan (1) Cellulitis of foot, right: (2) Diabetic ulcer of right foot: QUALIFIERS: Diabetic foot ulcer location: toe Diabetes mellitus type: type 2 Non-pressure ulcer stage: limited to breakdown of skin Qualified Code(s): E11.621 - Type 2 diabetes mellitus with foot ulcer; L97.511 - Non-pressure chronic ulcer of other part of right foot limited to breakdown of skin (3) Insulin dependent diabetes mellitus: (4) Failure of outpatient treatment: (5) Medical non-compliance: (6) Bipolar 1 disorder, depressed: PLAN: Plan 53-year-old female was admitted with ulcer at the plantar aspect of right foot between first and second toe and localized cellulitis. 1. Cellulitis of the Right Foot and contiguous cellulitis the second toe of the Right Foot - Admit to general medical floor. Continue empiric IV Zosyn and IV Vancomycin and await culture and sensitivity. Check MRSA PCR of wound. Pain control. Consult Dr. Villagran of the podiatry service. MRSA PCR is positive. Foot x-ray shows persistent fracture of proximal phalanx of fifth toe with soft tissue swelling without definite evidence of osteomyelitis. MRI foot is ordered 02/21: MRI foot reviewed. There is suspicion of osteomyelitis. Plantar ulcer between first and second toe. Plan for OR on Saturday. 02/22: Prelim wound culture shows Staph aureus 1+, 1+ GPR. Sensitivity pending. Continue vancomycin and Zosyn. Plan for OR on Saturday 2. Failure of Outpatient Antibiotic Treatment complicating #1 - Noted. 3. DM-2; uncontrolled with hyperglycemia and diabetic neuropathy worsened due to Medical nonadherence- Noted. Case Management will be consulted to get additional resources for this patient in an effort to prevent further serial readmission. 02/20: Glucose is high 309 and 376. Lantus insulin dose increased. 02/21: Lantus dose was increased. Patient started on Humalog scheduled dose 10 units 3 times daily with meal. 02/22: Glucose still high in the range of 250-300 therefore Lantus and Humalog insulin dose increased. 4. History of Cellulitis with a Large Left lower abdominal wall Abscess admitted here from 11/11/2023 to 11/14/2023 that was complicated by medical noncompliance with patient then leaving this hospital AMA and then also not getting her prescriptions filled - Noted. 5. Tobacco abuse - Tobacco Cessation will be strongly encouraged with Nicotine patch offered to control cravings. 6. History of cocaine abuse along with history of suicide attempt via intentional drug overdose - Noted. [place] UDS pending this admission to confirm suspicion of relapse. 7. Bipolar disorder - Resume home regimen as before. 8. History of HEBER - Start nocturnal CPAP. 9. History of sarcoidosis - Noted with no signs of active disease at this time. 10. GERD - Continue PPI as previous. 11. History of brain surgery - Noted. 12. History of perirectal abscess - Noted with no signs of recurrence. 13. History of Right total adrenalectomy - Noted. 14. History of appendectomy - Noted. 15. Remote history of - Noted for the sake of completeness. 16. OA; with low back pain - Give Tylenol prn. 17. DVT prophylaxis - Lovenox 40 mg sq daily. Microbiology Past 72 Hours 02/21/24 03:38 Ulcer, Decubitus - Right Foot Gram Stain - Final 02/21/24 03:38 Ulcer, Decubitus - Right Foot Wound Culture - Preliminary Staphylococcus aureus Gram positive leanne Laboratory Results 02/22/24 16:10: POC Glucose 297 H 02/22/24 22:06: POC Glucose 309 H 02/23/24 05:02: WBC 4.2 L, RBC 4.68, Hgb 13.4, Hct 40.9, MCV 87.4, MCH 28.6, MCHC 32.8, RDW Std Deviation 40.6, RDW Coeff of Cele 12.9, Plt Count 192, MPV 10.6, Immature Gran % (Auto) 1.700 H, Neut % (Auto) 49.0, Lymph % (Auto) 34.4, [place] % (Auto) 10.1 H, Eos % (Auto) 3.8, Baso % (Auto) 1.0, Absolute Neuts (auto) 2.0, Absolute Lymphs (auto) 1.43, Nucleated RBC % 0, Sodium 142, Potassium 3.4 L, Chloride 108 H, Carbon Dioxide 29.0, Anion Gap 5, BUN 14, Creatinine 0.43 L, Estim Creat Clear Calc 136.15, Est GFR (MDRD) Af Amer 196, Est GFR (MDRD) Non-Af 162, BUN/Creatinine Ratio 32.4 H, Glucose 198 H, Calcium 8.5 02/23/24 11:37: POC Glucose 280 H 02/23/24 13:00: Vancomycin Trough 16.3 H Clinical Impression(s) from Imaging Studies Clinical Impression(s) from Imaging Studies Foot X-Ray 02/21/24 00:06 IMPRESSION: 1. Persistent fracture of the proximal phalanx of fifth toe. 2. Soft tissue swelling without definite osteomyelitis. Electronically Signed: Prema Potter MD at 2:10 EST Reading Location ID and State: [facility] / [place] , Service support , Lower Extremity MRI 02/21/24 02:16 IMPRESSION: 1. No evidence of fracture or malalignment. 2. Interval development of a mild to moderate edema involving the head and neck of the 5th metatarsal. Developing osteomyelitis is a consideration. 3. No other bony abnormalities developed in the interval. 4. Extensive soft tissue edema and cellulitis involving the plantar surface of foot at the level of the 2nd through 4th MTP. No organized fluid collection or abscess however noted in the soft tissues. Charges/Coding Visit Charges Inpatient E&M: 34547 Subs Hosp L2
[2024-02-23] MEDS: Vancomycin Trough/Random Due 1 LAB MC (14:35)
[2024-02-23] MEDS: Potassium Chloride Oral Tablet 20 MEQ 40 MEQ PO (14:53)
[2024-02-23] MEDS: Nystatin Powder 15gm Bottle 1 APPLIC TOPICAL (14:54)
[2024-02-23] MEDS: Ondansetron 4 MG/2 ML Vial IV (15:24)
[2024-02-23] MEDS: Insulin Lispro 100 UNIT/ML INSULN.PEN 15 UNIT SC (16:49)
--- NOTE | 2024-02-23 17:57 | PN_ITS ---
Subjective Subjective Patient was seen today for follow up on her right foot. She is resting in bed, no other complaints. She does relates she does get pain in her foot, but appears controlled at this time. She has no complaints of f/c/n/v. Objective Data Objective Data Vital Signs: Vital Signs Temp Pulse Resp BP Pulse Ox O2 Del Method 97.8 F 79 18 111/55 L 94 Room Air 02/23/24 08:33 02/23/24 08:33 02/23/24 08:33 02/23/24 08:33 02/23/24 08:33 02/23/24 08:33 Oxygen Delivery Method Room Air Weight: 66.2 kg Body Mass Index (BMI) 24.3 Intake & Output: Intake and Output for Last 24 Hours 02/21/24 02/22/24 02/23/24 23:59 23:59 23:59 Intake Total 3755 / 3755 1700.00 / 1700.00 850 / 850 Balance 3755 / 3755 1700.00 / 1700.00 850 / 850 Lab / Micro Data 02/23/24 05:02 02/23/24 05:02 Labs: Laboratory Results - last 24 hr 02/22/24 22:06: POC Glucose 309 H 02/23/24 05:02: WBC 4.2 L, RBC 4.68, Hgb 13.4, Hct 40.9, MCV 87.4, MCH 28.6, MCHC 32.8, RDW Std Deviation 40.6, RDW Coeff of Cele 12.9, Plt Count 192, MPV 10.6, Immature Gran % (Auto) 1.700 H, Neut % (Auto) 49.0, Lymph % (Auto) 34.4, M mahnaz % (Auto) 10.1 H, Eos % (Auto) 3.8, Baso % (Auto) 1.0, Absolute Neuts (auto) 2.0, Absolute Lymphs (auto) 1.43, Nucleated RBC % 0, Sodium 142, Potassium 3.4 L , Chloride 108 H, Carbon Dioxide 29.0, Anion Gap 5, BUN 14, Creatinine 0.43 L, Estim Creat Clear Calc 136.15, Est GFR (MDRD) Af Amer 196, Est GFR (MDRD) Non-Af 162, BUN/Creatinine Ratio 32.4 H, Glucose 198 H, Calcium 8.5 02/23/24 11:37: POC Glucose 280 H 02/23/24 13:00: Vancomycin Trough 16.3 H Micro: Microbiology 02/21/24 03:38 Ulcer, Decubitus - Right Foot Gram Stain - Final 02/21/24 03:38 Ulcer, Decubitus - Right Foot Wound Culture - Preliminary Staphylococcus aureus Gram positive leanne Social Homelessness:: Sheltered Physical Exam Const alert, oriented x3 and no apparent distress Constitutional Narrative: Ulceration sub 2nd metatarsal down at least down to subc tissue, there is some nonviable tissue to the base, there is some edema to 2nd toe and trace erythema present - stable, there is no purulence, no visible abscess, no fluctuance, no crepitus, no maloder present, no streaking either, no other open lesions right foot, CFT < 2 seconds to all toes and DP and PT pulses are palpable right foot, no ankle or leg edema bilateral, no evidence of DVT bilateral, she does relate to POP to ulcer site right foot. No other POP or pain on ROM to foot or ankle, right. Assessment & Plan Assessment/Plan (1) Cellulitis of foot, right: (2) Non-pressure chronic ulcer of other part of right foot with fat layer exposed: (3) Diabetic ulcer of right foot: QUALIFIERS: Diabetes mellitus type: type 2 Diabetic foot ulcer location: toe Non-pressure ulcer stage: limited to breakdown of skin Qualified Code(s): E11.621 - Type 2 diabetes mellitus with foot ulcer; L97.511 - Non- pressure chronic ulcer of other part of right foot limited to breakdown of skin PLAN: Plan Evaluation performed, reviewed diagnostic data. The wound is sub 2nd metatarsal head right foot, and no evidence of osteomyelitis to that site. MRI has been obtained and noted to have bone marrow edema 5th metatarsal - but there is no wound there and no evidence of infection clinically to that site. There is some nonviable tissue to wound site - planning OR debridement with resection of 2nd metatarsal head right foot - she would like to proceed with this - will plan for Saturday. A culture has been obtained wound right foot and growing staph aureus and gram positive leanne - continue with antibiotic therapy. Wound care - betadine soln, gauze daily dressing changes. No weightbearing right forefoot. LEAS were ordered for further evaluation of vascular status - clinically though no evidence of acute ischemia and pedal pulses are palpable. Podiatry will continue to follow.
[2024-02-23 19:24] VITALS: BP 113/58; PULSE 80; RESP 18; TEMP 36.6; O2SAT 94
[2024-02-23 20:01] LABS: Bedside Glucose 330 mg/dL (74-106)
[2024-02-23] MEDS: QUEtiapine 100 MG Tablet 200 MG PO (20:35)
[2024-02-23] MEDS: Doxepin Hcl 25 MG Capsule PO (20:36)
[2024-02-23] MEDS: Methocarbamol 750 MG Tablet PO (20:43)
[2024-02-23 20:45] VITALS: BP 115/61; PULSE 101; RESP 18; TEMP 37.1; O2SAT 92
[2024-02-23 21:04] LABS: Bedside Glucose 291 mg/dL (74-106)
[2024-02-24] VITALS (17 sets, daily range): BP systolic 94–145; BP diastolic 59–74; PULSE 70–107; RESP 14–18; TEMP 36.6–37.2; O2SAT 93–98; BMI 24.3; BMI 24.9
[2024-02-24] MEDS: Morphine 2 MG/ML Syringe IV ×4 (00:58→20:24)
[2024-02-24 03:03] LABS: Amphetamine Urine NEGATIVE (<1000 ng/mL); Barbiturate Urine NEGATIVE (< 200 ng/mL); Benzodiazepine Urine NEGATIVE (< 200 ng/mL); Cocaine Urine NEGATIVE (< 300 ng/mL); Ecstacy Urine NEGATIVE (< 500 ng/mL); Methadone Urine NEGATIVE (< 300 ng/mL); Opiates Urine POSITIVE (< 300 ng/mL); PCP Urine NEGATIVE (< 25 ng/mL); THC Urine NEGATIVE (< 50 ng/mL); Vista UDS pH Range 5
--- NOTE | 2024-02-24 05:00 | EKG12_ITS ---
Test Reason : AM EKG Blood Pressure : */* mmHG Vent. Rate : 74 BPM Atrial Rate : 74 BPM P-R Int : 168 ms QRS Dur : 86 ms QT Int : 394 ms P-R-T Axes : 13 -14 -7 degrees QTcB Int : 437 ms Normal sinus rhythm Normal ECG When compared with ECG of 13-Nov-2023 17:31, Minimal criteria for Inferior infarct are no longer Present T wave inversion no longer evident in Lateral leads Confirmed by TOMMY BAUMANN, NICKOLAS ([id number]), online editor SYLVESTER BURCH ([id number]) on 02/24/2024 12:38:14 PM Referred By: RUVALCABA Confirmed By: NICKOLAS SANDERS MD
[2024-02-24] MEDS: Acetaminophen 325 MG Tablet 650 MG PO (05:19)
[2024-02-24] MEDS: Vancomycin HCl 1,250 MG in 0.9% Normal Saline (250mL Bag) 250 ML 167 MG IV ×3 (05:19→20:43)
[2024-02-24] MEDS: Piperacil/Tazobactam 3.375 GM in 0.9% Normal Saline (50mL MB+) 50 ML IV ×3 (05:19→22:54)
[2024-02-24] MEDS: busPIRone 5 MG Tablet 10 MG PO ×3 (05:20→20:43)
[2024-02-24] MEDS: hydrOXYzine PAM 25 MG Capsule 50 MG PO ×3 (05:20→20:43)
[2024-02-24 07:12] LABS: Absolute Lymphocyte Count 1.02 X10^3/uL (0.83-4.51); Absolute Neutrophil Count 3.4 X10^3/uL (2.0-7.7); Basophil# 0.02 X10^3/uL; Basophil% 0.4 % (0-1); Eosinophil# 0.13 X10^3/uL; Eosinophils% 2.5 % (0-5); Hematocrit 40.6 % (37-47); Hemoglobin 13.2 g/dL (12.0-15.0); Lymphocyte # 1.02 X10^3/ul (0.83-4.51); Lymphocyte % 19.7 % (19-41); Mean Corp Hgb Conc 32.5 g/dL (32-36); Mean Corpuscular Hgb 28.3 pg (27.0-32.0); Mean Corpuscular Volume 86.9 fL (81-99); Mean Platelet Vol. 10.8 fl (6.2-12.0); Monocyte# 0.58 X10^3/uL; Monocyte% 11.2 % (0-10); NRBC Flagged by Analyzer 0 % (0-5); Neutrophil # 3.37 X10^3/uL (2.7-7.7); Neutrophil % 65.2 % (47-70); Platelet Count 160 K/mm3 (150-450); RBC Distribution Width SD 40.4 fl (35.1-43.9); Red Blood Count 4.67 M/mm3 (4.2-5.4); White Blood Count 5.2 K/mm3 (4.4-11.0)
[2024-02-24 07:13] LABS: Bedside Glucose 409 mg/dL (74-106)
[2024-02-24 07:22] LABS: Anion Gap 5 (5-15); BUN 18 mg/dL (7-18); BUN/Creat Ratio 24.6 RATIO (10-20); Calcium,Total 8.6 mg/dL (8.5-10.1); Chloride 104 mmol/L (98-107); Creatinine, Serum 0.73 mg/dL (0.55-1.02); EST Glomerular Filtration Rate 88 mL/min (>60); Est Glom Filt Rate - Afr Amer 107 mL/min (>60); Glucose 435 mg/dL (74-106); Potassium 3.8 mmol/L (3.5-5.1); Sodium Level 138 mmol/L (136-145)
[2024-02-24 07:32] LABS: Partial Thromboplast Time 30.8 Seconds (24.1-36.2)
[2024-02-24] MEDS: Potassium Chloride Oral Tablet 20 MEQ 40 MEQ PO (08:53)
[2024-02-24] MEDS: 0.9% Saline Lock 10 ML Syringe IV (08:54)
[2024-02-24 10:20] LABS: Hemoglobin A1c 11.2 % (3.8-5.6)
--- NOTE | 2024-02-24 10:40 | PCM.PN.HOSP ---
Subjective Subjective Doing well, resting comfortably. Plan for OR debridement today Objective Data Objective Data Vital Signs: Vital Signs Temp Pulse Resp BP Pulse Ox O2 Del Method 98.0 F 73 18 124/64 H 98 Room Air 02/24/24 09:00 02/24/24 09:00 02/24/24 10:00 02/24/24 09:00 02/24/24 09:00 02/24/24 10:00 Oxygen Delivery Method Room Air Weight: 149 lb 11.102 oz Body Mass Index (BMI) 24.9 Intake & Output: Intake and Output for Last 24 Hours 02/23/24 02/24/24 02/25/24 03:59 03:59 03:59 Intake Total 1450.00 / 1500.00 1545 / 1545 755 / 755 Output Total 1000 / 1000 1999 / 1999 Balance 1450.00 / 1500.00 545 / 545 -1245 / -1245 Lab / Micro Data 02/24/24 06:42 02/24/24 06:42 Labs: Laboratory Results - last 24 hr 02/23/24 11:37: POC Glucose 280 H 02/23/24 13:00: Vancomycin Trough 16.3 H 02/23/24 16:13: POC Glucose 330 H 02/23/24 20:27: POC Glucose 291 H 02/24/24 02:27: Urine Opiates Screen POSITIVE H, Urine Methadone Screen NEGATIVE, Ur Barbiturates Screen NEGATIVE, Ur Phencyclidine Scrn NEGATIVE, Ur Amphetamines Screen NEGATIVE, MDMA (Ecstasy) Screen NEGATIVE, U Benzodiazepines Scrn NEGATIVE, Urine Cocaine Screen NEGATIVE, U Cannabinoids Screen NEGATIVE, Ur Drug Screen Comment 02/24/24 06:42: WBC 5.2, RBC 4.67, Hgb 13.2, Hct 40.6, MCV 86.9, MCH 28.3, MCHC 32.5, RDW Std Deviation 40.4, RDW Coeff of Cele 13.0, Plt Count 160, MPV 10.8, Immature Gran % (Auto) 1.000 H, Neut % (Auto) 65.2, Lymph % (Auto) 19.7, [place] % (Auto) 11.2 H, Eos % (Auto) 2.5, Baso % (Auto) 0.4, Absolute Neuts (auto) 3.4, Absolute Lymphs (auto) 1.02, Nucleated RBC % 0, APTT 30.8, Sodium 138, Potassium 3.8, Chloride 104, Carbon Dioxide 29.0, Anion Gap 5, BUN 18, Creatinine 0.73, Estim Creat Clear Calc 80.20, Est GFR (MDRD) Af Amer 107, Est GFR (MDRD) Non-Af 88, BUN/Creatinine Ratio 24.6 H, Glucose 435 H, Hemoglobin A1c 11.2 H, Calcium 8.6 02/24/24 06:44: POC Glucose 409 H Micro: Microbiology 02/21/24 03:38 Ulcer, Decubitus - Right Foot Gram Stain - Final 02/21/24 03:38 Ulcer, Decubitus - Right Foot Wound Culture - Final Meth. resistant Staph. aureus Corynebacterium glucuronolytic Corynebacterium amycolatum Social Homelessness:: Sheltered Physical Exam Narrative General: Resting comfortably, Cooperative, No apparent distress HEENT: Atraumatic, PERRLA, EOMI, Normocephalic Oral: Moist Mucosa Neck: Supple, No JVD Lungs: Diminished, Normal air movement, No rhonchi, No wheeze, No rales Cardiovascular: Regular rate, Regular Rhythm, Normal S1, Normal S2, No murmurs Abdomen: Soft, Non Tender, Non-Distended, No Hepato-splenomegaly Extremities: No edema, Capillary Refill Less than 3 Seconds Skin: Right lower extremity wrapped dressing intact Musculoskeletal: No Tenderness to Palpation of Joints or Extremities Neurological: No focal neurological deficits, Motor Exam 5/5 strength throughout, Sensory exam intact to light touch and pain Psych/Mental Status: Normal Affect, Appropriate Assessment & Plan Assessment/Plan (1) Cellulitis of foot, right: (2) Diabetic ulcer of right foot: QUALIFIERS: Diabetic foot ulcer location: toe Diabetes mellitus type: type 2 Non-pressure ulcer stage: limited to breakdown of skin Qualified Code(s): E11.621 - Type 2 diabetes mellitus with foot ulcer; L97.511 - Non-pressure chronic ulcer of other part of right foot limited to breakdown of skin PLAN: Plan 1. Cellulitis of the Right Foot and contiguous cellulitis the second toe of the Right Foot - Admit to general medical floor. Continue empiric IV Zosyn and IV Vancomycin and await culture and sensitivity. Check MRSA PCR of wound. Pain control. Consult Dr. Villagran of the podiatry service. MRSA PCR is positive. Foot x-ray shows persistent fracture of proximal phalanx of fifth toe with soft tissue swelling without definite evidence of osteomyelitis. MRI foot is ordered 02/21: MRI foot reviewed. There is suspicion of osteomyelitis. Plantar ulcer between first and second toe. Plan for OR on Saturday. 02/22: Prelim wound culture shows Staph aureus 1+, 1+ GPR. Sensitivity pending. Continue vancomycin and Zosyn. Plan for OR on Saturday02/24/2024: Plan for OR debridement and second metatarsal amputation 2. DM-2; uncontrolled with hyperglycemia and diabetic neuropathy worsened due to Medical nonadherence- Noted. Case Management will be consulted to get additional resources for this patient in an effort to prevent further serial readmission. 02/20: Glucose is high 309 and 376. Lantus insulin dose increased. 02/21: Lantus dose was increased. Patient started on Humalog scheduled dose 10 units 3 times daily with meal. 02/22: Glucose still high in the range of 250-300 therefore Lantus and Humalog insulin dose increased. 02/24/2024: Continue to adjust insulin, her glucose control is terrible with an A1c of 11.2 4. History of Cellulitis with a Large Left lower abdominal wall Abscess admitted here from 11/11/2023 to 11/14/2023 that was complicated by medical noncompliance with patient then leaving this hospital AMA and then also not getting her prescriptions filled - Noted. 5. Tobacco abuse - Tobacco Cessation will be strongly encouraged with Nicotine patch offered to control cravings. 6. History of cocaine abuse along with history of suicide attempt via intentional drug overdose - Noted. [place] UDS pending this admission to confirm suspicion of relapse. 7. Bipolar disorder - Resume home regimen as before. 8. History of HEBER - Start nocturnal CPAP. 9. History of sarcoidosis - Noted with no signs of active disease at this time. 10. GERD - Continue PPI as previous. 11. History of brain surgery - Noted. 12. History of perirectal abscess - Noted with no signs of recurrence. 13. History of Right total adrenalectomy - Noted. 14. History of appendectomy - Noted. 15. Remote history of - Noted for the sake of completeness. 16. OA; with low back pain - Give Tylenol prn. DVT: Lovenox Charges/Coding Visit Charges Inpatient E&M: 10227 Subs Hosp L2
--- NOTE | 2024-02-24 11:40 | RAD_ITS ---
INDICATION: post op EXAMINATION/TECHNIQUE: X-RAY - RIGHT XR Foot Min 3 Views 3 VIEWS COMPARISON: Prior study dated: 02/21/2024 FINDINGS: BONES: Transverse fracture of the distal second metatarsal versus osteotomy, new compared to prior, without significant displacement. Subtle relative osteopenia of the distal ends of the metatarsals third fourth and fifth metatarsals especially the fifth metatarsal possibly related to the positioning. Osteomyelitis could have a similar appearance. JOINTS: No dislocation. SOFT TISSUES: Soft tissue swelling especially plantar aspect overlying the distal metatarsals. RAD/Foot min 3 Views IMPRESSION: Soft tissue swelling. Presumed osteotomy second metatarsal. Relative osteopenia of the distal third, fourth and fifth metatarsals. Osteomyelitis not excluded. Electronically Signed: Opal Child MD at 7:15 EST ,
[2024-02-24] MEDS: Insulin Glargine-YFGN 100 UNIT/ML Pen 20 UNIT SC (11:49)
[2024-02-24 12:51] LABS: Bedside Glucose 229 mg/dL (74-106)
--- NOTE | 2024-02-24 13:20 | PRE.ANES_ITS ---
ASA Classification* ASA Classification ASA Classification: 3 Assessment & Plan Anesthesia* Anesthesia Assessment Anesthesia Assessment: Discussed sedation and/or anesthesia options, risks, benefits, and alternatives with patient/parents/legal guardian/POA. Questions invited. The patient/parents/legal guardian/POA seems to understand and agrees to proceed with anesthesia plan. Reviewed the physical assessment, medical history, allergy history and patient home medications list prior to surgery/procedure/anesthetic and documented any changes. Performed airway and anesthesia risk assessments. Anesthesia Type Anesthesia Type: MAC (General As a backup only.) History Source History Obtained from:: Patient and Chart Anesthesia Focused Assessment* Temperature: 98.1 F Pulse Rate: 71 Blood Pressure: 121/70 Respiratory Rate: 18 Pulse Ox: 97 Oxygen Delivery Method: Nasal Cannula (Patient has oxygen at home. This is used with her CPAP machine at nighttime only.) Airway Assessment Mouth opens: 2 cm Mallampati Score: IV Teeth Condition: Chipped/Broken (Chipped tooth #9. patient has a couple pulled molars.) Neck Range of motion (ROM): Limited ROM (Somewhat decreased extension.) Focused Labs Anesthesia Preop lab: CBC WBC 5.2 K/mm3 (4.4-11.0) 02/24/24 06:42 RBC 4.67 M/mm3 (4.2-5.4) 02/24/24 06:42 Hgb 13.2 g/dL (12.0-15.0) 02/24/24 06:42 Hct 40.6 % (37-47) 02/24/24 06:42 Plt Count 160 K/mm3 (150-450) 02/24/24 06:42 CHEMISTRY Potassium 3.8 mmol/L (3.5-5.1) 02/24/24 06:42 Sodium 138 mmol/L (136-145) 02/24/24 06:42 Magnesium 1.8 mg/dL (1.6-2.6) 02/21/24 06:20 Phosphorus 3.7 mg/dL (2.5-4.9) 02/21/24 06:20 BUN 18 mg/dL (7-18) 02/24/24 06:42 Creatinine 0.73 mg/dL (0.55-1.02) 02/24/24 06:42 Glucose 435 mg/dL (74-106) H 02/24/24 06:42 POC Glucose 229 mg/dL (74-106) H 02/24/24 12:34 TSH 0.916 uIU/mL (0.358-3.740) 02/09/24 05:20 COAG PT 12.7 SECONDS (11.7-14.9) 02/20/24 23:57 Pre-Assessment Diagnosis/Proposed Procedure Planned Operative Procedure(s): Right foot debridement of all nonviable necrotic and infected soft tissue and bone with removal of second metatarsal head bone Anesthesia History Anesthesia History - environmental studies department chair: Anesthesia History - environmental studies department chair Hx Hospitalization Yes 11/13/13 05:31 Any Problems With Anesthesia No 02/24/24 05:13 Cholinesterase deficiency No 02/24/24 05:13 You/Your Family Experience No 02/24/24 05:13 fever (hyperthermia) with Relationship Recent Exposure to Contagious No 02/24/24 05:13 Disease Does patient have nerve No 02/24/24 05:13 stimulator Patient instructed to have No 02/24/24 05:13 device shut off --Does patient have Pacemaker No 02/24/24 01:16 or ICD? When Was Last Pacemaker Check QUESTION #4 FULL TEXT: You/Your Family Experience fever (hyperthermia) with Anesthesia Last Oral Intake Last Oral intake: Last Oral Intake NPO since 00:00 02/24/24 01:16 Meds taken in AM with sips of water? Meds patient instructed to sip of water until 10am 02/24/24 11:55 take am of surgery today PONV PONV - environmental studies department chair: PONV - environmental studies department chair Female HX of Motion Sickness HX of N/V After Surgery Non-Smoker Duration of Surgery greater than 60 minutes Number of Risk Factors PONV Score Height & Weight Height & Weight: Anesthesia: Height & Weight Height 5 ft 5 in 02/24/24 12:20 Weight: 67.9 kg 02/24/24 12:20 Body Mass Index (BMI) 24.9 02/24/24 11:55 Respiratory Assessment Respiratory Assessment - environmental studies department chair: Respiratory Tract Infection Hx - environmental studies department chair Hx Respiratory Tract Infection No 02/24/24 05:13 STOP Sleep Apnea STOP Sleep Apnea - environmental studies department chair: STOP Sleep Apnea - environmental studies department chair Hx Hypertension No 02/21/24 08:50 Hx Sleep Apnea Yes 02/21/24 02:45 CPAP No 02/21/24 02:45 BIPAP No 02/21/24 02:45 Do you snore loudly (louder than talking or can be heard Do you often feel tired/ fatigued/ sleepy during daytime? Has anyone observed you stop breathing during sleep? STOP Results Positive 02/21/24 02:45 QUESTION #5 FULL TEXT : Do you snore loudly (louder than talking or can be heard through closed doors)? 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 Specify any problems Hx of Preganancy in last 3 N/A 02/21/24 02:45 Months Nurse Filling Out Transfusion FREDDIE 02/21/24 02:45 & Questions: Date: 02/21/24 02/21/24 02:45 Time: 02:55 02/21/24 02:45 Patient unable to answer at this time (ie. confused, unrespo /Reproduction History /Reproductive History - environmental studies department chair: /Reproductive Hx- environmental studies department chair Hx Now No 02/24/24 05:13 Gestational Age (in weeks): EDC: Hx Hx Para Hx Section SAB No 02/24/24 05:13 Active Medications Active Medications: Current Medications Generic Name Dose Route Start Last Admin Trade Name Freq PRN Reason Stop Dose Admin Acetaminophen 650 mg 02/21/24 02:03 02/24/24 05:19 Acetaminophen 325 Mg Tablet PO 650 mg Q6H PRN PRN Administration Pain 1-10 Or Fever>100.7 Acetaminophen 500 mg 02/21/24 03:42 Acetaminophen 500 Mg Tablet PO Q6H PRN PRN Pain 1-5/10 or Fever Aripiprazole 5 mg 02/21/24 10:00 02/24/24 08:38 Aripiprazole 5 Mg Tablet PO Not Given DAILY [facility] Protocol Buspirone HCl 10 mg 02/21/24 06:00 02/24/24 05:20 Buspirone 5 Mg Tablet PO 10 mg TID [facility] Administration Doxepin HCl 25 mg 02/21/24 22:00 02/23/24 20:36 Doxepin Hcl 25 Mg Capsule PO 25 mg QHS [facility] Administration Enoxaparin Sodium 40 mg 02/21/24 10:00 02/23/24 11:35 Enoxaparin 40 Mg/0.4 Ml Syringe SC 40 mg DAILY [facility] Administration Glucagon 1 mg 02/21/24 02:03 Glucagon 1 Mg/Ml Syringe IM X1 PRN HYPOGLYCEMIA Protocol Hydroxyzine Pamoate 50 mg 02/21/24 06:00 02/24/24 05:20 Hydroxyzine Ayleen 25 Mg Capsule PO 50 mg TID [facility] Administration Dextrose 250 mls @ 0 mls/hr 02/21/24 02:03 Dextrose 10%-Water IV .Q0M PRN HYPOGLYCEMIA Protocol As Directed Sodium Chloride 500 mls @ 15 mls/hr 02/21/24 03:03 IV .[id number] PRN Saline Flush Sodium Chloride 500 mls @ 15 mls/hr 02/21/24 03:03 IV .[id number] PRN Additional IVPB Infusion Vancomycin IV-PHARMACY TO DOSE 500 mls @ 250 mls/hr 02/21/24 03:42 1 each/ Sodium Chloride IV PRN PRN Rx to Dose Protocol Piperacillin Sod/Tazobactam 50 mls @ 12.5 mls/hr 02/21/24 06:00 02/24/24 09:20 Sod 3.375 gm/ Sodium Chloride IV Infused Q8 [facility] Infusion Vancomycin HCl 1,250 mg/ 275 mls @ 167 mls/hr 02/22/24 13:30 02/24/24 06:58 Sodium Chloride IV Infused Q8H [facility] Infusion Insulin Glargine 30 unit 02/24/24 22:00 Insulin Glargine-Yfgn 100 Unit/Ml Pen SC BID [facility] Insulin Human Lispro 0 unit 02/21/24 07:00 02/23/24 20:32 Insulin Lispro 100 Unit/Ml Insuln.Pen SC 2 u ACHS [facility] Administration Protocol Insulin Human Lispro 15 unit 02/24/24 11:00 Insulin Lispro 100 Unit/Ml Insuln.Pen SC TIDAC [facility] L-Arginine/L-Glutamine/Calcium HMB 1 packet 02/21/24 17:00 02/24/24 08:37 [place] (Unflavored) Packet PO Not Given BIDCM [facility] Lamotrigine 25 mg 02/21/24 10:00 02/24/24 11:51 Lamotrigine 25 Mg Tablet PO Not Given DAILY [facility] Melatonin 3 mg 02/21/24 02:03 02/22/24 21:58 Melatonin 3 Mg Tablet PO 3 mg QHS PRN PRN Administration INSOMNIA Methocarbamol 750 mg 02/21/24 03:42 02/23/24 20:43 Methocarbamol 750 Mg Tablet PO 750 mg Q6H PRN PRN Administration muscle relaxer Morphine Sulfate 2 mg 02/21/24 03:42 02/24/24 08:54 Morphine 2 Mg/Ml Syringe IV 2 mg Q4H PRN PRN Administration Pain Score 6-10 Nicotine 14 mg 02/21/24 10:00 02/24/24 11:51 Nicotine 14 Mg Patch TD Not Given DAILY [facility] Nystatin 1 applic 02/21/24 06:00 02/24/24 05:20 Nystatin Powder 15gm Bottle TOPICAL Not Given TID [facility] Protocol Ondansetron HCl 4 mg 02/21/24 02:03 02/23/24 15:24 Ondansetron 4 Mg/2 Ml Vial IV 4 mg Q8H PRN PRN Administration NAUSEA/VOMITING Pantoprazole Sodium 40 mg 02/21/24 10:00 02/24/24 11:50 Pantoprazole Sodium 40 Mg Tablet PO Not Given DAILY [facility] Potassium Chloride 40 meq 02/24/24 08:00 02/24/24 08:53 Potassium Chloride Oral Tablet 20 Meq PO 02/26/24 08:01 40 meq DAILYCM [facility] Administration Quetiapine Fumarate 200 mg 02/21/24 22:00 02/23/24 20:35 Quetiapine 100 Mg Tablet PO 200 mg QHS [facility] Administration Quetiapine Fumarate 100 mg 02/21/24 10:00 02/24/24 11:50 Quetiapine 100 Mg Tablet PO Not Given DAILY [facility] Protocol Sodium Chloride 10 - 40 ml 02/21/24 03:03 02/24/24 08:54 0.9% Saline Lock 10 Ml Syringe IV 10 ml UD PRN Administration SALINE FLUSH Vancomycin Protocol 1 lab 02/25/24 11:00 Vancomycin Trough/Random Due MC 02/25/24 15:00 DAILY [facility] PFSH Medical History MRSA (methicillin resistant staph aureus) culture positive Hearing loss, left Cancer Anxiety Depression Bipolar disorder GERD (gastroesophageal reflux disease) Cirrhosis Hepatitis Smoker On home oxygen therapy COPD (chronic obstructive pulmonary disease) Failure of outpatient treatment Abnormal EKG Preoperative cardiovascular examination Abdominal wall abscess Hypertension Neuropathy Diabetes Sarcoidosis Home Medications ?Medication ?Instructions ?Recorded ?Last Taken ?Type buspirone 10 mg tablet 10 mg PO TID depression 07/19/13 02/17/24 History aripiprazole 5 mg tablet 5 mg PO DAILY antidepressant 02/08/24 02/17/24 History doxepin 25 mg capsule 25 mg PO QHS bipolar 02/08/24 02/17/24 History hydroxyzine pamoate 25 mg capsule 50 mg PO TID anxiety 02/08/24 02/17/24 History (Vistaril) insulin glargine 100 unit/mL (3 25 unit subcut DAILY blood sugar 02/08/24 Unknown History mL) subcutaneous pen (Lantus Solostar U-100 Insulin) insulin lispro 100 unit/mL See Protocol subcut ACHS blood 02/08/24 02/17/24 History subcutaneous pen sugar lamotrigine 25 mg tablet 25 mg PO DAILY bipolar 02/08/24 02/17/24 History methocarbamol 750 mg tablet 750 mg PO Q6H PRN PRN muscle 02/08/24 02/17/24 Hist ory relaxer omeprazole 40 mg capsule,delayed 40 mg PO DAILY acid reflux 02/08/24 02/17/24 History release pen needle, diabetic 31 gauge x #100 ea 02/08/24 Unknown Rx 04/18 quetiapine 100 mg tablet 100 mg PO DAILY bipolar 02/08/24 02/17/24 History quetiapine 200 mg tablet 200 mg PO QHS bipolar 02/08/24 02/16/24 History linaclotide 72 mcg capsule 72 mcg PO DAILY bowels 02/09/24 02/17/24 History (Linzess) cyclobenzaprine 5 mg PO TID PRN PRN MUSCLE SPASMS 02/20/24 Unknown History Allergy/AdvReac Type Severity Reaction Status Date / Time aspirin AdvReac Other Verified 02/20/24 22:40 hydromorphone (From Dilaudid) AdvReac Other Verified 02/20/24 22:40 pseudoephedrine HCl (From AdvReac Other Verified 02/20/24 22:40 Sudafed) Surgical History History of cholecystectomy Hx of brain surgery Hx of appendectomy Hx of section Hx of total adrenalectomy Social History Smoking Status: Current every day smoker tobacco type: cigarettes Homelessness:: Sheltered Review of Systems (Anesthesia) ROS Narrative System reviewed and no additional complaints, except as documented.
--- NOTE | 2024-02-24 13:30 | DEB_PTH ---
PATIENT: ANA CRISTINA THOMAS LOC: MS3 U#:[id number] AGE/SX: 53/F ROOM: MI316 RE02/21/[address]: Dr. Farhad Ma MD : 1970 BED: 1 DIS: 02/29/2024 SPEC #: [id number] RECD: 02/25/24 09:12 STATUS: CAROLIN RAMIREZ #: [id number] [place] 02/24/24 13:[address]: Farhad Ma DEPT: SURGICAL PATHOLOGY RECD BY: Lisa Sutherland ENTERED: 02/25/24 10:09 SP TYPE: URIEL TISS OTHR DR: MD Dr. Vicente Luong DO Dr. Jeffrey Wunning, DPM Dr. Dao Gagnon MD Tissues: A - Soft tissues, NOS B - Bone of foot, NOS Procedures: Decalcification bone/plaque Surgery Specimen Level III HEADER OPERATION: Debridement foot wound and osteotomy 2nd metatarsal head PRE-OP DIAGNOSIS: Cellulitis of right foot, diabetic foot ulcer TISSUE SUBMITTED: A- Debrided wound right foot, B- Bone 2nd toe MICROSCOPIC DIAGNOSIS A. Wound, right foot, excision: Focal ulceration, abscess formation, acute and chronic inflammation and granulation tissue reaction. B. Bone 2nd toe, excision: A piece of fibroadipose tissue with reactive changes. See comment. 02/26/2024 COMMENT B. Bony tissue is not identified in this specimen. MICROSCOPIC DESCRIPTION Slides are reviewed. GROSS DESCRIPTION A. Received in fixative is one container labeled with the patient's name and designated Debrided wound right foot. The specimen consists of multiple pieces of lerma soft tissue measuring in aggregate 1.5 x 1.0 x 0.2cm. The entire specimen is submitted in one cassette. B. Received in fixative is one container labeled with the patient's name and designated Bone 2nd toe. The specimen consists of a piece of lerma indurated tissue/ possible bone measuring 0.3 x 0.2 x 0.1cm. The entire specimen is submitted in one cassette after decalcification. SJLornemr 02/25/2024 TC:3 CPT:02525c7, [id number]
[2024-02-24] MEDS: Bupivacaine Mpf 0.5% 30 ML VIAL (14:00)
--- NOTE | 2024-02-24 14:30 | PCM.OPRPT ---
Operative Report (Standard) Operative Information Surgery/Procedure Performed: Debridement of ulcer down to and including subcutaneous and fascia layer right foot, 2nd metatarsal osteotomy right foot Surgeon: Sudhir Simpson Date of Procedure: 02/24/24 Procedure Start Time: 14:03 Procedure Stop Time: 14:26 Pre-Operative Diagnosis: Diabetic foot ulcer down to fascia layer right foot, plantarflexed 2nd metatarsal right foot Post-Operative Diagnosis: Same Select all DRAINS/GRAFTS/IMPLANTS that apply: None Type of Anesthesia: Local MAC Estimated Blood Loss: < 1 mL Specimen collected: Yes Description of specimen(s) removed: Debrided ulcer right foot sent to pathology, Bone from proximal phalanx right 2nd toe sent to pathology and microbiology Description of surgery: Indications: This is a 53 year old female with history of poorly controlled diabetes, who developed right foot ulceration sub 2nd metatarsal head and infection, this is second time she has been admitted for this wound and infection. Discussed options with her and she elected to proceed with debridement of ulceration and also discussed possible resection of 2nd metatarsal head vs 2nd metatarsal floating osteotomy. After reviewing the possible benefits vs risks, goals, expectations of each she elected to proceed with wound debridement and 2nd metatarsal osteotomy. She was advised the risks include, but not limited to, need for further surgery, nonhealing, bleeding, pain, blood clots, deformity, further infection, loss of limb, loss of life. The consent form was reviewed with her and she freely signed it. No guarantees or warranties were given nor implied. Operative Procedure: The patient was brought back to the operating room and was placed on the operating room table in the supine position. She was carefully secured to the table with a safety belt around her waist. A well padded pneumatic tourniquet was applied around her right ankle. A timeout was performed and she was properly identified and surgical plan was confirmed. The patient received MAC anesthesia. The skin was cleansed on right foot with 70% Isopropyl alcohol and a total of 10mL of Bupivacaine plain was given as a local 2nd ray block on her right foot. Her right foot was scrubbed, prepped and draped in the usual aseptic fashion. Further attention was directed to patient's right foot and were was an ulceration down to fascia layer sub 2nd metatarsal head, there was nonviable and necrotic tissue, there was plantarflexed 2nd metatarsal head as well. The patient's right foot was elevated and right ankle pneumatic tourniquet was inflated to 250mmHg. Using a 15 scalpel blade the ulceration was debrided down to and including fascia layer, this was done in excisional fashion, the debrided tissue was sent to pathology as a specimen. The site was flushed out with copious amounts of normal saline solution. Using a 15 scalpel blade a linear longitudinal skin incision was made overlying the 2nd metatarsal phalangeal joint. Careful dissection was completed down to the 2nd metatarsal head and using a powered sagittal saw an osteotomy was completed transversely at the neck of the 2nd metatarsal. The 2nd metatarsal head ruperto superiorly. A bone culture was taken using a bone cutting rongeur from the base of the 2nd toe proximal phalanx and sent to pathology and microbiology as a bone culture, the bone of the proximal phalanx and 2nd metatarsal was noted to be hard, white and did not appear clinically infected. The rest of the tissues appeared healthy and viable. The site was flushed out with copious amounts of normal saline solution. The skin dorsally was reapproximated using 3-0 Prolone. A dressing was applied consisting of Betadine solution, 4x4 gauze, kerlix and marley dressing. The total area debrided measured 1.5cm x 1.8cm and down to and including the fascia layer. The pneumatic tourniquet was deflated and there was immediate return of flow to foot, and CFT < 2 seconds to all toes. The patient tolerated the above procedure well with no complications. She was transported from the operating room to the recovery room with vital signs stable and in good condition. She will be followed as an inpatient. Surgical Findings: See above Soil Science Technical Officer language specialist: No Complications Complications: No
--- NOTE | 2024-02-24 14:40 | PCM.POST.ANE ---
Anesthesia: Postop Eval I Current Vital Signs Temperature: 98 F Pulse Rate: 86 Blood Pressure: 94/64 Respiratory Rate: 14 Pulse Ox: 96 Oxygen Delivery Method: Room Air Assessment Airway patent: Yes Spontaneous unlabored respirations: Yes Mental status: Awake and Calm nausea: No Vomiting: No Anesthesia Complication: No Fluid Hydration Crystalloid volume administer (ml): 250 Total IV fluid infused: 250 Progress Note Anesthesia document: Postop Eval 1 completed: Yes
--- NOTE | 2024-02-24 14:45 | CASEMGMT ---
Addendum entered by Valarie Regalado 02/24/24 15:25: Message sent to hospitalist that at time of dc all meds will need ordered as pt does not have access to meds and a rx for BGM will need signed. Original Note: GOLD CM into pt room to make aware of PCP appt, pt is off of the floor at this time.
--- NOTE | 2024-02-24 15:34 | CHAPLAIN ---
Type of Pastoral Visit ___ Initial Visit ___ Follow-up Visit ___ On-call Visit ___ General Patient Visit ___ Spiritual Assessment ___ Family Conference ___ Bereavement ___ Rapid Response ___ Code Blue ___ Other (describe below) Pastoral Care Referral From ___ Patient ___ Family ___ Nurse ___ Physician ___ Spring Clipper ___ Exterminator ___ Other (describe below) Sacrament/Intervention ___ Active listening ___ Anointing ___ Confucianist ___ Bereavement ___ Communion ___ Latha exploration ___ ___ Life review ___ Prayer ___ Reconciliation ___ Sacrament of Sick ___ Supportive presence ___ Wedding ___ Other (describe below) Pastoral Comments patient and bed are out of the room; pt is left a calling card
[2024-02-24] MEDS: Nystatin Powder 15gm Bottle 1 APPLIC TOPICAL (16:04)
[2024-02-24] MEDS: Juven (unflavored) Packet 1 PACKET PO (16:09)
[2024-02-24 16:29] LABS: Bedside Glucose 230 mg/dL (74-106)
[2024-02-24 16:29] LABS: Bedside Glucose 264 mg/dL (74-106)
[2024-02-24] MEDS: Ondansetron 4 MG/2 ML Vial IV (20:24)
[2024-02-24] MEDS: Insulin Glargine-YFGN 100 UNIT/ML Pen 30 UNIT SC (20:41)
[2024-02-24] MEDS: QUEtiapine 100 MG Tablet 200 MG PO (20:42)
[2024-02-24] MEDS: Doxepin Hcl 25 MG Capsule PO (20:43)
[2024-02-24 22:26] LABS: Bedside Glucose 393 mg/dL (74-106)
[2024-02-25 04:00] VITALS: BP 121/61; PULSE 97; RESP 18; TEMP 37.2; O2SAT 95
[2024-02-25] MEDS: Vancomycin HCl 1,250 MG in 0.9% Normal Saline (250mL Bag) 250 ML 167 MG IV (04:32)
[2024-02-25] MEDS: Nystatin Powder 15gm Bottle 1 APPLIC TOPICAL ×3 (04:32→21:32)
[2024-02-25] MEDS: Ondansetron 4 MG/2 ML Vial IV (04:37)
[2024-02-25] MEDS: proCHLORPERazine 10 MG/2 ML Vial 5 MG IV (05:31)
[2024-02-25 05:32] VITALS: BMI 25.6
[2024-02-25] MEDS: hydrOXYzine PAM 25 MG Capsule 50 MG PO ×3 (06:30→21:31)
[2024-02-25] MEDS: busPIRone 5 MG Tablet 10 MG PO ×3 (06:30→21:31)
[2024-02-25] MEDS: Piperacil/Tazobactam 3.375 GM in 0.9% Normal Saline (50mL MB+) 50 ML IV ×3 (06:30→21:32)
--- NOTE | 2024-02-25 06:35 | PCM.POSTANE2 ---
Anesthesia Postop Eval I Sum Postop Eval Completion status Anesthesia document: Postop Eval 1 completed: Yes Anesthesia Postop Eval I Summary Anesthesia Postop Eval I Summary: Anesthesia Postop Eval I: Assessment Summary Airway patent Yes 02/24/24 14:42 [email or web address] Spontaneous unlabored Yes 02/24/24 14:42 [email or web address] respirations Mental status Awake,Calm 02/24/24 14:42 [email or web address] nausea No 02/24/24 14:42 [email or web address] Vomiting No 02/24/24 14:42 [email or web address] Anesthesia Postop Eval I: Fluid Summary Crystalloid volume administer 250 02/24/24 14:42 [email or web address] (ml) Colloids volume administered ( ml) Blood Product volume administered (ml) Total IV fluid infused 250 02/24/24 14:42 [email or web address] Anesthesia Postop Eval I: Summary Notes Anesthesia Complication No 02/24/24 14:42 [email or web address] Anesthesia Complication Comment: Post-operative progress note Anesthesia: Postop Eval II Evaluation Mental status: Awake Pain Level: 0 nausea: No Vomiting: No
[2024-02-25 07:05] LABS: Bedside Glucose 294 mg/dL (74-106)
[2024-02-25 07:40] LABS: Absolute Neutrophil Count 5.8 X10^3/uL (2.0-7.7); Basophil# 0.02 X10^3/uL; Basophil% 0.3 % (0-1); Eosinophil# 0.08 X10^3/uL; Hematocrit 41.8 % (37-47); Hemoglobin 13.5 g/dL (12.0-15.0); Lymphocyte % 10.2 % (19-41); Mean Corp Hgb Conc 32.3 g/dL (32-36); Mean Corpuscular Hgb 28.2 pg (27.0-32.0); Mean Corpuscular Volume 87.4 fL (81-99); Mean Platelet Vol. 10.9 fl (6.2-12.0); Monocyte# 1.01 X10^3/uL; Monocyte% 12.9 % (0-10); NRBC Flagged by Analyzer 0 % (0-5); Neutrophil # 5.82 X10^3/uL (2.7-7.7); Neutrophil % 74.6 % (47-70); Platelet Count 153 K/mm3 (150-450); RBC Distribution Width CV 12.9 % (11.6-14.6); RBC Distribution Width SD 41.1 fl (35.1-43.9); Red Blood Count 4.78 M/mm3 (4.2-5.4); White Blood Count 7.8 K/mm3 (4.4-11.0)
[2024-02-25 07:52] VITALS: O2SAT 96
[2024-02-25 08:01] LABS: Anion Gap 6 (5-15); BUN 30 mg/dL (7-18); BUN/Creat Ratio 16.7 RATIO (10-20); Calcium,Total 8.4 mg/dL (8.5-10.1); Chloride 105 mmol/L (98-107); EST Glomerular Filtration Rate 31 mL/min (>60); Est Glom Filt Rate - Afr Amer 38 mL/min (>60); Estimated Creatinine Clearance 35.42 ml/min; Glucose 298 mg/dL (74-106); Potassium 4.6 mmol/L (3.5-5.1); Sodium Level 137 mmol/L (136-145)
[2024-02-25] MEDS: Pantoprazole Sodium 40 MG Tablet PO (09:21)
[2024-02-25] MEDS: lamoTRIgine 25 MG Tablet PO (09:24)
[2024-02-25] MEDS: Juven (unflavored) Packet 1 PACKET PO ×2 (09:32→16:53)
[2024-02-25] MEDS: Enoxaparin 40 MG/0.4 ML Syringe SC (09:32)
[2024-02-25] MEDS: ARIPiprazole 5 MG Tablet PO (09:32)
[2024-02-25] MEDS: Potassium Chloride Oral Tablet 20 MEQ 40 MEQ PO (09:32)
[2024-02-25] MEDS: Acetaminophen 500 MG Tablet PO ×3 (09:33→21:31)
[2024-02-25] MEDS: Insulin Glargine-YFGN 100 UNIT/ML Pen 30 UNIT SC (09:34)
[2024-02-25] MEDS: QUEtiapine 100 MG Tablet PO (09:34)
[2024-02-25 09:39] VITALS: BP 94/60; PULSE 78; RESP 18; TEMP 36.9; O2SAT 98
--- NOTE | 2024-02-25 10:35 | PCM.PN.HOSP ---
Subjective Subjective Doing well, no issues overnight tolerated surgery well Objective Data Objective Data Vital Signs: Vital Signs Temp Pulse Resp BP Pulse Ox O2 Del Method 98.5 F 78 18 94/60 98 Room Air 02/25/24 09:39 02/25/24 09:39 02/25/24 09:39 02/25/24 09:39 02/25/24 09:39 02/25/24 09:39 Oxygen Delivery Method Room Air Weight: 153 lb 10.595 oz Body Mass Index (BMI) 25.6 Intake & Output: Intake and Output for Last 24 Hours 02/24/24 02/25/24 02/26/24 03:59 03:59 03:59 Intake Total 1545 / 1545 2455 / 2455 275 / 275 Output Total 1000 / 1000 1999 / 1999 100 / 100 Balance 545 / 545 455 / 455 175 / 175 Lab / Micro Data 02/25/24 06:50 02/25/24 06:50 Labs: Laboratory Results - last 24 hr 02/24/24 11:45: POC Glucose 264 H 02/24/24 12:34: POC Glucose 229 H 02/24/24 16:08: POC Glucose 230 H 02/24/24 20:40: POC Glucose 393 H 02/25/24 06:29: POC Glucose 294 H 02/25/24 06:50: WBC 7.8, RBC 4.78, Hgb 13.5, Hct 41.8, MCV 87.4, MCH 28.2, MCHC 32.3, RDW Std Deviation 41.1, RDW Coeff of Cele 12.9, Plt Count 153, MPV 10.9, Immature Gran % (Auto) 1.000 H, Neut % (Auto) 74.6 H, Lymph % (Auto) 10.2 L, [place] % (Auto) 12.9 H, Eos % (Auto) 1.0, Baso % (Auto) 0.3, Absolute Neuts (auto) 5.8, Absolute Lymphs (auto) 0.80 L, Nucleated RBC % 0, Sodium 137, Potassium 4.6, Chloride 105, Carbon Dioxide 26.0, Anion Gap 6, BUN 30 H, Creatinine 1.80 H, Estim Creat Clear Calc 35.42, Est GFR (MDRD) Af Amer 38 L, Est GFR (MDRD) Non-Af 31 L, BUN/Creatinine Ratio 16.7, Glucose 298 H, Calcium 8.4 L Micro: Microbiology 02/24/24 14:38 Bone - 2nd Toe Gram Stain - Final 02/21/24 03:38 Ulcer, Decubitus - Right Foot Gram Stain - Final 02/21/24 03:38 Ulcer, Decubitus - Right Foot Wound Culture - Final Meth. resistant Staph. aureus Corynebacterium glucuronolytic Corynebacterium amycolatum Radiography Diagnostic Testing: Radiology Impression Extremity Arterial Study 02/22/24 09:38 Interpretation Summary Right LEO 1.3, normal. Doppler/PVR waveforms of the right leg normal at rest. TBI not obtained due to digit wound. Left LEO 1.23, normal. TBI and Doppler/PVR waveforms of the left leg normal at rest. Ordering Physician: Sudhir Simpson Referring Physician: LEONIDAS SIMPSON Performed By: ADILIA RODRIGUEZ [facility] Foot X-Ray 02/24/24 11:40 IMPRESSION: Soft tissue swelling. Presumed osteotomy second metatarsal. Relative osteopenia of the distal third, fourth and fifth metatarsals. Osteomyelitis not excluded. Electronically Signed: Opal Child MD at 7:15 EST , Social Homelessness:: Sheltered Physical Exam Narrative General: Resting comfortably, Cooperative, No apparent distress HEENT: Atraumatic, PERRLA, EOMI, Normocephalic Oral: Moist Mucosa Neck: Supple, No JVD Lungs: Diminished, Normal air movement, No rhonchi, No wheeze, No rales Cardiovascular: Regular rate, Regular Rhythm, Normal S1, Normal S2, No murmurs Abdomen: Soft, Non Tender, Non-Distended, No Hepato-splenomegaly Extremities: No edema, Capillary Refill Less than 3 Seconds Skin: Right lower extremity wrapped dressing intact Musculoskeletal: No Tenderness to Palpation of Joints or Extremities Neurological: No focal neurological deficits, Motor Exam 5/5 strength throughout, Sensory exam intact to light touch and pain Psych/Mental Status: Normal Affect, Appropriate Assessment & Plan Assessment/Plan (1) Cellulitis of foot, right: (2) Diabetic ulcer of right foot: QUALIFIERS: Diabetic foot ulcer location: toe Diabetes mellitus type: type 2 Non-pressure ulcer stage: limited to breakdown of skin Qualified Code(s): E11.621 - Type 2 diabetes mellitus with foot ulcer; L97.511 - Non-pressure chronic ulcer of other part of right foot limited to breakdown of skin PLAN: Plan 1. Cellulitis of the Right Foot and contiguous cellulitis the second toe of the Right Foot with KASSY- Admit to general medical floor. Continue empiric IV Zosyn and IV Vancomycin and await culture and sensitivity. Check MRSA PCR of wound. Pain control. Consult Dr. Villagran of the podiatry service. MRSA PCR is positive. Foot x-ray shows persistent fracture of proximal phalanx of fifth toe with soft tissue swelling without definite evidence of osteomyelitis. MRI foot is ordered 02/21: MRI foot reviewed. There is suspicion of osteomyelitis. Plantar ulcer between first and second toe. Plan for OR on Saturday. 02/22: Prelim wound culture shows Staph aureus 1+, 1+ GPR. Sensitivity pending. Continue vancomycin and Zosyn. Plan for OR on Saturday02/24/2024: Plan for OR debridement and second metatarsal amputation 02/25/2024: Creatinine has increased to 1.8 today baseline is around 0.6, will start her on 2 L of IV fluids. ABIs are little bit elevated to 1.3 on the right ankle 2. DM-2; uncontrolled with hyperglycemia and diabetic neuropathy worsened due to Medical nonadherence- Noted. Case Management will be consulted to get additional resources for this patient in an effort to prevent further serial readmission. 02/20: Glucose is high 309 and 376. Lantus insulin dose increased. 02/21: Lantus dose was increased. Patient started on Humalog scheduled dose 10 units 3 times daily with meal. 02/22: Glucose still high in the range of 250-300 therefore Lantus and Humalog insulin dose increased. 02/24/2024: Continue to adjust insulin, her glucose control is terrible with an A1c of 11.2 4. History of Cellulitis with a Large Left lower abdominal wall Abscess admitted here from 11/11/2023 to 11/14/2023 that was complicated by medical noncompliance with patient then leaving this hospital AMA and then also not getting her prescriptions filled - Noted. 5. Tobacco abuse - Tobacco Cessation will be strongly encouraged with Nicotine patch offered to control cravings. 6. History of cocaine abuse along with history of suicide attempt via intentional drug overdose - Noted. [place] [facility] pending this admission to confirm suspicion of relapse. 7. Bipolar disorder - Resume home regimen as before. 8. History of HEBER - Start nocturnal CPAP. 9. History of sarcoidosis - Noted with no signs of active disease at this time. 10. GERD - Continue PPI as previous. 11. History of brain surgery - Noted. 12. History of perirectal abscess - Noted with no signs of recurrence. 13. History of Right total adrenalectomy - Noted. 14. History of appendectomy - Noted. 15. Remote history of - Noted for the sake of completeness. 16. OA; with low back pain - Give Tylenol prn. DVT: Lovenox Charges/Coding Visit Charges Inpatient E&M: 58063 Subs Hosp L2
--- NOTE | 2024-02-25 11:22 | CASEMGMT ---
GOLD CM into pt room, pt sleeping. Provided pt with script for glucometer and supplies. Informed pt up upcoming appointment with Dr. Desai, informed pt that appointment information will also be provided on DC paperwork. Pt denies any additional questions or concerns at this time.
--- NOTE | 2024-02-25 12:02 | WOUNDNOTE ---
wound photo: right plantar foot
--- NOTE | 2024-02-25 12:02 | WOUNDNOTE ---
wound photo: right foot
[2024-02-25 12:13] LABS: Bedside Glucose 408 mg/dL (74-106)
[2024-02-25] MEDS: 0.9% Normal Saline (1000mL) 1,000 ML 100 ML IV ×2 (12:26→22:49)
[2024-02-25 12:41] LABS: Bedside Glucose 180 mg/dL (74-106); Bedside Glucose 201 mg/dL (74-106)
[2024-02-25 13:29] LABS: Vancomycin, Trough Level 37.5 ug/mL (5.0-15.0)
--- NOTE | 2024-02-25 13:58 | PCM.RX.CS ---
Consult Antibiotic Management Pharmacy has been consulted to manage selected antibiotic: Vancomycin Type of Intervention Type of Consult: Follow-up Labs Labs: Sodium 137 mmol/L (136-145) 02/25/24 06:50 Potassium 4.6 mmol/L (3.5-5.1) 02/25/24 06:50 Chloride 105 mmol/L (98-107) 02/25/24 06:50 Carbon Dioxide 26.0 mmol/L (21.0-32.0) 02/25/24 06:50 Anion Gap 6 (5-15) 02/25/24 06:50 BUN 30 mg/dL (7-18) H 02/25/24 06:50 Creatinine 1.80 mg/dL (0.55-1.02) H 02/25/24 06:50 Est GFR (MDRD) Af Amer 38 mL/min (>60) L 02/25/24 06:50 Est GFR (MDRD) Non-Af 31 mL/min (>60) L 02/25/24 06:50 BUN/Creatinine Ratio 16.7 RATIO (10-20) 02/25/24 06:50 Glucose 298 mg/dL (74-106) H 02/25/24 06:50 Vancomycin Trough 37.5 ug/mL (5.0-15.0) H 02/25/24 12:56 Microbiology Microbiology: Microbiology 02/24/24 14:38 Bone - 2nd Toe Gram Stain - Final 02/21/24 03:38 Ulcer, Decubitus - Right Foot Gram Stain - Final 02/21/24 03:38 Ulcer, Decubitus - Right Foot Wound Culture - Final Meth. resistant Staph. aureus Corynebacterium glucuronolytic Corynebacterium amycolatum Pharmacy Plan for Drug Dosing Pharmacy Plan for Drug Dosing: VANCOMYCIN LEVEL RECEIVED Current Vancomycin Dose: 1250MG Q8 Number of Doses Received: 12 Vancomycin Level: 37.5 MG/DL Hours Since Last Dose: 8.5 Renal Function: SCR 1.8 MG/DL, CRCL 35 ML/MIN Renal Function Trend: WORSENED Lab/Micro: MRSA IN WOUND CX, BONE CX PENDING Vancomycin Plan/Comments: 8.5 hour trough is supratherapeutic at 37.5mg/dL (goal 15-20). Will hold dosing for now and get a random level in 24 hours. Pending Level: 02/26/24 @ 1300 - random Pharmacy Service will continue to monitor and adjust dosing as required.
--- NOTE | 2024-02-25 14:19 | PN_ITS ---
Subjective Subjective Patient was seen today for follow up on right foot. She is resting in bed, no new complaints. Objective Data Objective Data Vital Signs: Vital Signs Temp Pulse Resp BP Pulse Ox O2 Del Method 98.5 F 78 18 94/60 98 Room Air 02/25/24 09:39 02/25/24 09:39 02/25/24 09:39 02/25/24 09:39 02/25/24 09:39 02/25/24 09:39 Oxygen Delivery Method Room Air Weight: 69.7 kg Body Mass Index (BMI) 25.6 Intake & Output: Intake and Output for Last 24 Hours 02/23/24 02/24/24 02/25/24 23:59 23:59 23:59 Intake Total 1495 / 1495 2455 / 2455 375 / 375 Output Total 1000 / 1000 1999 / 1999 100 / 100 Balance 495 / 495 455 / 455 275 / 275 Lab / Micro Data 02/25/24 06:50 02/25/24 06:50 Labs: Laboratory Results - last 24 hr 02/24/24 11:45: POC Glucose 264 H 02/24/24 14:48: POC Glucose 180 H 02/24/24 14:48: POC Glucose 201 H 02/24/24 16:08: POC Glucose 230 H 02/24/24 20:40: POC Glucose 393 H 02/25/24 06:29: POC Glucose 294 H 02/25/24 06:50: WBC 7.8, RBC 4.78, Hgb 13.5, Hct 41.8, MCV 87.4, MCH 28.2, MCHC 32.3, RDW Std Deviation 41.1, RDW Coeff of Cele 12.9, Plt Count 153, MPV 10.9, I mmature Gran % (Auto) 1.000 H, Neut % (Auto) 74.6 H, Lymph % (Auto) 10.2 L, [place] % (Auto) 12.9 H, Eos % (Auto) 1.0, Baso % (Auto) 0.3, Absolute Neuts (auto) 5.8, Absolute Lymphs (auto) 0.80 L, Nucleated RBC % 0, Sodium 137, Potassium 4.6, Chloride 105, Carbon Dioxide 26.0, Anion Gap 6, BUN 30 H, Creatinine 1.80 H, Estim Creat Clear Calc 35.42, Est GFR (MDRD) Af Amer 38 L, Est GFR (MDRD) Non-Af 31 L, BUN/Creatinine Ratio 16.7, Glucose 298 H, Calcium 8.4 L 02/25/24 11:54: POC Glucose 408 H 02/25/24 12:56: Vancomycin Trough 37.5 H Micro: Microbiology 02/24/24 14:38 Bone - 2nd Toe Gram Stain - Final 02/21/24 03:38 Ulcer, Decubitus - Right Foot Gram Stain - Final 02/21/24 03:38 Ulcer, Decubitus - Right Foot Wound Culture - Final Meth. resistant Staph. aureus Corynebacterium glucuronolytic Corynebacterium amycolatum Radiography Diagnostic Testing: Radiology Impression Extremity Arterial Study 02/22/24 09:38 Interpretation Summary Right LEO 1.3, normal. Doppler/PVR waveforms of the right leg normal at rest. TBI not obtained due to digit wound. Left LEO 1.23, normal. TBI and Doppler/PVR waveforms of the left leg normal at rest. Ordering Physician: Sudhir Simpson Referring Physician: LEONIDAS SIMPSON Performed By: ADILIA RODRIGUEZ [facility] Foot X-Ray 02/24/24 11:40 IMPRESSION: Soft tissue swelling. Presumed osteotomy second metatarsal. Relative osteopenia of the distal third, fourth and fifth metatarsals. Osteomyelitis not excluded. Electronically Signed: Opal Child MD at 7:15 EST , Social Homelessness:: Sheltered Physical Exam Const alert, oriented x3 and no apparent distress Constitutional Narrative: reviewed today's wound photos right foot - appears appropriate at this time Assessment & Plan Assessment/Plan (1) Cellulitis of foot, right: (2) Non-pressure chronic ulcer of other part of right foot with fat layer exposed: (3) Diabetic ulcer of right foot: QUALIFIERS: Diabetic foot ulcer location: toe Diabetes mellitus type: type 2 Non-pressure ulcer stage: limited to breakdown of skin Qualified Code(s): E11.621 - Type 2 diabetes mellitus with foot ulcer; L97.511 - Non- pressure chronic ulcer of other part of right foot limited to breakdown of skin PLAN: Plan Evaluation performed, reviewed diagnostic data. s/p wound debridement right foot. Cultures reviewed, bone culture pending. Wound care - betadine soln, gauze daily dressing changes. Ok to weightbearing right foot with CAM Walker boot. LEAS were ordered for further evaluation of vascular status - clinically though no evidence of acute ischemia and pedal pulses are palpable. Podiatry will continue to follow.
[2024-02-25 14:32] VITALS: BP 118/56; PULSE 97; RESP 18; TEMP 36.8; O2SAT 94
[2024-02-25 14:33] VITALS: BP 118/56; PULSE 83; RESP 18; TEMP 37.1; O2SAT 97
--- NOTE | 2024-02-25 14:45 | CASEMGMT ---
Addendum entered by Valarie Regalado 02/25/24 15:54: Pt to have wound care supplies upon dc per . TC to [facility] [place] to see if insurance will cover, per [place] she does not think it would be. GOLD LANDON into pt room, pt states she has gotten supplies in the past in [place]. Pt states she has a card that she uses at [facility] that she can get $75 worth of supplies over the counter. Pt states that she will get the supplies needed. Added to dc plan the needed supplies for pt, betadine solution, 4x4's, kerlix and marley dressings. Original Note: GOLD LANDON made aware by wound nurse that pod is requesting HHC. GOLD LANDON into pt room, pt lying in bed in no distress. Made pt aware of HHC request, pt states she is staying with her cousin after dc- Rosie Crow at [address] [place] [address]. Pt called her cousin while RN DIPESH in room and pt cousin has 3 big dogs that pt will not be able to handle while she is at work for when the HH nurse visits. Asked pt what her hours were at work and then she states that her cousin is not comfortable with [facility] in her home. Pt is agreeable to going to the [facility] or Dr. Simpson's office and Rosie is willing to perform the wound care. GOLD LANDON made pt aware of walking boot that is ordered and this is being worked on to provide her. Pt wears size 8 shoe. Gave this info to [facility] liaison who will bring boot. Updated Dr. Simpson via backline. Pt denies further needs at this time.
--- NOTE | 2024-02-25 14:47 | CHAPLAIN ---
Type of Pastoral Visit ___ Initial Visit ___ Follow-up Visit ___ On-call Visit ___ General Patient Visit ___ Spiritual Assessment ___ Family Conference ___ Bereavement ___ Rapid Response ___ Code Blue ___ Other (describe below) Pastoral Care Referral From ___ Patient ___ Family ___ Nurse ___ Physician ___ Clip On Sunglasses Inspector ___ Writer Technical Publications ___ Other (describe below) Sacrament/Intervention ___ Active listening ___ Anointing ___ Yarsani ___ Bereavement ___ Communion ___ Latha exploration ___ ___ Life review ___ Prayer ___ Reconciliation ___ Sacrament of Sick ___ Supportive presence ___ Wedding ___ Other (describe below) Pastoral Comments patient was receiving care from the staff at time of attempted visit
[2024-02-25] MEDS: Methocarbamol 750 MG Tablet PO ×2 (16:11→21:31)
[2024-02-25 16:31] LABS: Bedside Glucose > 500 mg/dL (74-106)
[2024-02-25] MEDS: Insulin Lispro 100 UNIT/ML INSULN.PEN SC ×2 (16:52→22:47)
[2024-02-25] MEDS: Insulin Lispro 100 UNIT/ML INSULN.PEN 15 UNIT SC (16:53)
[2024-02-25 21:27] VITALS: BP 140/46; PULSE 86; RESP 18; TEMP 36.9; O2SAT 96
[2024-02-25] MEDS: QUEtiapine 100 MG Tablet 200 MG PO (21:30)
[2024-02-25] MEDS: Doxepin Hcl 25 MG Capsule PO (21:31)
[2024-02-25] MEDS: Insulin Glargine-YFGN 100 UNIT/ML Pen 40 UNIT SC (21:39)
[2024-02-25 22:04] LABS: Bedside Glucose 457 mg/dL (74-106)
[2024-02-25] MEDS: Polyethylene Glycol 3350 17 GM PACKET PO (22:46)
[2024-02-25] MEDS: Sodium Chloride 0.65% 1 SPRAY SPRAY.BTL 2 SPRAY NASAL (22:46)
[2024-02-25] MEDS: MELATONIN 3 MG TABLET PO (22:49)
[2024-02-25 22:56] LABS: Glucose 488 mg/dL (74-106)
[2024-02-26 05:00] VITALS: BP 105/55; PULSE 76; RESP 18; TEMP 36.9; O2SAT 95
[2024-02-26 05:16] VITALS: BMI 26.4
[2024-02-26] MEDS: Sodium Chloride 0.65% 1 SPRAY SPRAY.BTL 2 SPRAY NASAL (05:41)
[2024-02-26] MEDS: busPIRone 5 MG Tablet 10 MG PO ×2 (05:41→14:59)
[2024-02-26] MEDS: hydrOXYzine PAM 25 MG Capsule 50 MG PO ×2 (05:41→14:59)
[2024-02-26] MEDS: Piperacil/Tazobactam 3.375 GM in 0.9% Normal Saline (50mL MB+) 50 ML IV (05:41)
[2024-02-26] MEDS: Methocarbamol 750 MG Tablet PO (05:43)
[2024-02-26] MEDS: Acetaminophen 500 MG Tablet PO (05:43)
[2024-02-26] MEDS: Ondansetron 4 MG/2 ML Vial IV ×2 (05:44→21:54)
[2024-02-26 06:04] LABS: Absolute Lymphocyte Count 0.92 X10^3/uL (0.83-4.51); Absolute Neutrophil Count 3.9 X10^3/uL (2.0-7.7); Basophil# 0.03 X10^3/uL; Basophil% 0.5 % (0-1); Eosinophil# 0.13 X10^3/uL; Eosinophils% 2.2 % (0-5); Hematocrit 37.8 % (37-47); Hemoglobin 12.8 g/dL (12.0-15.0); Lymphocyte # 0.92 X10^3/ul (0.83-4.51); Lymphocyte % 15.4 % (19-41); Mean Corp Hgb Conc 33.9 g/dL (32-36); Mean Corpuscular Volume 85.5 fL (81-99); Mean Platelet Vol. 11.4 fl (6.2-12.0); Monocyte# 0.99 X10^3/uL; Monocyte% 16.6 % (0-10); NRBC Flagged by Analyzer 0 % (0-5); Neutrophil # 3.85 X10^3/uL (2.7-7.7); Neutrophil % 64.3 % (47-70); Platelet Count 152 K/mm3 (150-450); RBC Distribution Width CV 12.7 % (11.6-14.6); RBC Distribution Width SD 39.5 fl (35.1-43.9); Red Blood Count 4.42 M/mm3 (4.2-5.4)
[2024-02-26 07:49] LABS: Anion Gap 7 (5-15); BUN 49 mg/dL (7-18); BUN/Creat Ratio 19.1 RATIO (10-20); Calcium,Total 8.3 mg/dL (8.5-10.1); Chloride 110 mmol/L (98-107); Creatinine, Serum 2.57 mg/dL (0.55-1.02); EST Glomerular Filtration Rate 21 mL/min (>60); Est Glom Filt Rate - Afr Amer 25 mL/min (>60); Estimated Creatinine Clearance 25.15 ml/min; Glucose 224 mg/dL (74-106); Potassium 4.5 mmol/L (3.5-5.1); Sodium Level 141 mmol/L (136-145)
[2024-02-26 07:58] VITALS: BP 113/63; PULSE 71; RESP 18; TEMP 36.9; O2SAT 96
[2024-02-26] MEDS: Insulin Lispro 100 UNIT/ML INSULN.PEN 15 UNIT SC ×3 (08:12→17:20)
[2024-02-26] MEDS: Juven (unflavored) Packet 1 PACKET PO (08:13)
[2024-02-26] MEDS: Potassium Chloride Oral Tablet 20 MEQ 40 MEQ PO (08:13)
[2024-02-26] MEDS: Insulin Lispro 100 UNIT/ML INSULN.PEN SC ×3 (08:15→17:19)
[2024-02-26 08:41] LABS: Bedside Glucose 194 mg/dL (74-106)
[2024-02-26] MEDS: ARIPiprazole 5 MG Tablet PO (10:17)
[2024-02-26] MEDS: lamoTRIgine 25 MG Tablet PO (10:19)
[2024-02-26] MEDS: Enoxaparin 40 MG/0.4 ML Syringe SC (10:19)
[2024-02-26] MEDS: Pantoprazole Sodium 40 MG Tablet PO (10:20)
[2024-02-26] MEDS: QUEtiapine 100 MG Tablet PO (10:20)
[2024-02-26 11:08] VITALS: BP 118/53; PULSE 73; RESP 15; TEMP 37.1; O2SAT 96
[2024-02-26 11:33] LABS: Bedside Glucose 342 mg/dL (74-106)
--- NOTE | 2024-02-26 11:38 | PCM.PN.HOSP ---
Subjective Subjective doing well, no issues overnight. Objective Data Objective Data Vital Signs: Vital Signs Temp Pulse Resp BP Pulse Ox O2 Del Method 98.7 F 73 15 118/53 L 96 Room Air 02/26/24 11:08 02/26/24 11:08 02/26/24 11:08 02/26/24 11:08 02/26/24 11:08 02/26/24 11:08 Oxygen Delivery Method Room Air Weight: 158 lb 4.67 oz Body Mass Index (BMI) 26.4 Intake & Output: Intake and Output for Last 24 Hours 02/25/24 02/26/24 02/27/24 03:59 03:59 03:59 Intake Total 2455 / 2455 2175 / 2175 1050 / 1050 Output Total 1999 200 / 200 Balance 455 / 455 1974 1050 / 1050 Lab / Micro Data 02/26/24 04:50 02/26/24 04:50 Labs: Laboratory Results - last 24 hr 02/24/24 14:48: POC Glucose 180 H 02/24/24 14:48: POC Glucose 201 H 02/25/24 11:54: POC Glucose 408 H 02/25/24 12:56: Vancomycin Trough 37.5 H 02/25/24 16:08: POC Glucose > 500 H* 02/25/24 21:35: POC Glucose 457 H* 02/25/24 22:20: Glucose 488 H* 02/26/24 04:50: WBC 6.0, RBC 4.42, Hgb 12.8, Hct 37.8, MCV 85.5, MCH 29.0, MCHC 33.9, RDW Std Deviation 39.5, RDW Coeff of Cele 12.7, Plt Count 152, MPV 11.4, Immature Gran % (Auto) 1.000 H, Neut % (Auto) 64.3, Lymph % (Auto) 15.4 L, [place] % (Auto) 16.6 H, Eos % (Auto) 2.2, Baso % (Auto) 0.5, Absolute Neuts (auto) 3.9, Absolute Lymphs (auto) 0.92, Nucleated RBC % 0, Sodium 141, Potassium 4.5, Chloride 110 H, Carbon Dioxide 24.0, Anion Gap 7, BUN 49 H, Creatinine 2.57 H, Estim Creat Clear Calc 25.15, Est GFR (MDRD) Af Amer 25 L, Est GFR (MDRD) Non-Af 21 L, BUN/Creatinine Ratio 19.1, Glucose 224 H, Calcium 8.3 L 02/26/24 08:01: POC Glucose 194 H 02/26/24 11:04: POC Glucose 342 H Micro: Microbiology 02/24/24 14:38 Bone - 2nd Toe Gram Stain - Final 02/21/24 03:38 Ulcer, Decubitus - Right Foot Gram Stain - Final 02/21/24 03:38 Ulcer, Decubitus - Right Foot Wound Culture - Final Meth. resistant Staph. aureus Corynebacterium glucuronolytic Corynebacterium amycolatum Social Homelessness:: Sheltered Physical Exam Narrative General: Resting comfortably, Cooperative, No apparent distress HEENT: Atraumatic, PERRLA, EOMI, Normocephalic Oral: Moist Mucosa Neck: Supple, No JVD Lungs: Diminished, Normal air movement, No rhonchi, No wheeze, No rales Cardiovascular: Regular rate, Regular Rhythm, Normal S1, Normal S2, No murmurs Abdomen: Soft, Non Tender, Non-Distended, No Hepato-splenomegaly Extremities: No edema, Capillary Refill Less than 3 Seconds Skin: Right lower extremity wrapped dressing intact Musculoskeletal: No Tenderness to Palpation of Joints or Extremities Neurological: No focal neurological deficits, Motor Exam 5/5 strength throughout, Sensory exam intact to light touch and pain Psych/Mental Status: Normal Affect, Appropriate Assessment & Plan Assessment/Plan (1) Cellulitis of foot, right: (2) Diabetic ulcer of right foot: QUALIFIERS: Diabetic foot ulcer location: toe Diabetes mellitus type: type 2 Non-pressure ulcer stage: limited to breakdown of skin Qualified Code(s): E11.621 - Type 2 diabetes mellitus with foot ulcer; L97.511 - Non-pressure chronic ulcer of other part of right foot limited to breakdown of skin PLAN: Plan 1. Cellulitis of the Right Foot and contiguous cellulitis the second toe of the Right Foot with KASSY- Admit to general medical floor. Continue empiric IV Zosyn and IV Vancomycin and await culture and sensitivity. Check MRSA PCR of wound. Pain control. Consult Dr. Villagran of the podiatry service. MRSA PCR is positive. Foot x-ray shows persistent fracture of proximal phalanx of fifth toe with soft tissue swelling without definite evidence of osteomyelitis. MRI foot is ordered 02/21: MRI foot reviewed. There is suspicion of osteomyelitis. Plantar ulcer between first and second toe. Plan for OR on Saturday. 02/22: Prelim wound culture shows Staph aureus 1+, 1+ GPR. Sensitivity pending. Continue vancomycin and Zosyn. Plan for OR on Saturday02/24/2024: Plan for OR debridement and second metatarsal amputation 02/25/2024: Creatinine has increased to 1.8 today baseline is around 0.6, will start her on 2 L of IV fluids. ABIs are little bit elevated to 1.3 on the right ankle well 02/26/2024: Continue the encourage p.o. intake, in the meantime renal function has worsened and will give her another 2 L of IV fluids 2. DM-2; uncontrolled with hyperglycemia and diabetic neuropathy worsened due to Medical nonadherence- Noted. Case Management will be consulted to get additional resources for this patient in an effort to prevent further serial readmission. 02/20: Glucose is high 309 and 376. Lantus insulin dose increased. 02/21: Lantus dose was increased. Patient started on Humalog scheduled dose 10 units 3 times daily with meal. 02/22: Glucose still high in the range of 250-300 therefore Lantus and Humalog insulin dose increased. 02/24/2024: Continue to adjust insulin, her glucose control is terrible with an A1c of 11.2 4. History of Cellulitis with a Large Left lower abdominal wall Abscess admitted here from 11/11/2023 to 11/14/2023 that was complicated by medical noncompliance with patient then leaving this hospital AMA and then also not getting her prescriptions filled - Noted. 5. Bipolar disorder - Resume home regimen as before. 6. History of HEBER - Start nocturnal CPAP. 7. GERD - Continue PPI as previous. 8. OA; with low back pain - Give Tylenol prn. DVT: Lovenox Charges/Coding Visit Charges Inpatient E&M: 39037 Subs Hosp L2
--- NOTE | 2024-02-26 11:58 | CHAPLAIN ---
Type of Pastoral Visit _x__ Initial Visit ___ Follow-up Visit ___ On-call Visit ___ General Patient Visit ___ Spiritual Assessment ___ Family Conference ___ Bereavement ___ Rapid Response ___ Code Blue ___ Other (describe below) Pastoral Care Referral From _x__ Patient ___ Family ___ Nurse ___ Physician ___ Grounds Caretaker ___ Powerhouse Attendant ___ Other (describe below) Sacrament/Intervention _x__ Active listening ___ Anointing ___ Christian ___ Bereavement ___ Communion ___ Latha exploration ___ ___ Life review ___ Prayer ___ Reconciliation ___ Sacrament of Sick ___ Supportive presence ___ Wedding ___ Other (describe below) Pastoral Comments patient and RN are in the room; RN states that is fine to come in while she is there; pt states that she is tired but hoping to go home today; pt is offered support but pt states that she is fine; pt reports that she has had some improvement and that she will have help at home; pt declines spiritual care at this time
[2024-02-26] MEDS: Insulin Glargine-YFGN 100 UNIT/ML Pen 40 UNIT SC (12:21)
--- NOTE | 2024-02-26 13:24 | CON.PCM.ID_ITS ---
Assessment & Plan Assessment/Plan (1) Insulin dependent diabetes mellitus: (2) Cellulitis of foot, right: PLAN: on vanc/zosyn, taken to OR 02/24/[address] Simpson for I&D and 2nd met osteotomy. Suspected osteo, surg cx pending. With KASSY, will change to dapto, unasyn. Wound cx with MRSA and corynebacter x2. Will follow, thank you, d/w Dr. Ma HPI Consult Data Date of Consult: 02/26/24 HPI Narrative Reason for Consultation: foot osteo HPI Narrative: ANA CRISTINA THOMAS, is a 53 F with h/o DM, neuropathy, sarcoid, cocaine use, presented with 1 month progressive R foot infection. C/o moderate pain, swelling, redness, drainage. No fever or chills, no recent abx. Admitted 02/20, on vanc/zosyn, taken to OR 02/24/[address] Simpson for I&D and 2nd met osteotomy. Feeling ok, drinking fluids. Full ROS performed and neg except as noted above. [facility] Medical History MRSA (methicillin resistant staph aureus) culture positive Hearing loss, left Cancer Anxiety Depression Bipolar disorder GERD (gastroesophageal reflux disease) Cirrhosis Hepatitis Smoker On home oxygen therapy COPD (chronic obstructive pulmonary disease) Failure of outpatient treatment Abnormal EKG Preoperative cardiovascular examination Abdominal wall abscess Hypertension Neuropathy Diabetes Sarcoidosis Home Medications ?Medication ?Instructions ?Recorded ?Last Taken ?Type buspirone 10 mg tablet 10 mg PO TID depression 14 02/17/24 History aripiprazole 5 mg tablet 5 mg PO DAILY antidepressant 02/08/24 02/17/24 History doxepin 25 mg capsule 25 mg PO QHS bipolar 02/08/24 02/17/24 History hydroxyzine pamoate 25 mg capsule 50 mg PO TID anxiety 02/08/24 02/17/24 History (Vistaril) insulin glargine 100 unit/mL (3 25 unit subcut DAILY blood sugar 02/08/24 Unknown History mL) subcutaneous pen (Lantus Solostar U-100 Insulin) insulin lispro 100 unit/mL See Protocol subcut ACHS blood 02/08/24 02/17/24 History subcutaneous pen sugar lamotrigine 25 mg tablet 25 mg PO DAILY bipolar 02/08/24 02/17/24 History methocarbamol 750 mg tablet 750 mg PO Q6H PRN PRN muscle 02/08/24 02/17/24 History relaxer omeprazole 40 mg capsule,delayed 40 mg PO DAILY acid reflux 02/08/24 02/17/24 History release pen needle, diabetic 31 gauge x #100 ea 02/08/24 Unknown Rx / quetiapine 100 mg tablet 100 mg PO DAILY bipolar 02/08/24 02/17/24 History quetiapine 200 mg tablet 200 mg PO QHS bipolar 02/08/24 02/16/24 History linaclotide 72 mcg capsule 72 mcg PO DAILY bowels 02/09/24 02/17/24 History (Linzess) cyclobenzaprine 5 mg PO TID PRN PRN MUSCLE SPASMS 02/20/24 Unknown History Allergy/AdvReac Type Severity Reaction Status Date / Time aspirin AdvReac Other Verified 02/20/24 22:40 hydromorphone (From Dilaudid) AdvReac Other Verified 02/20/24 22:40 pseudoephedrine HCl (From AdvReac Other Verified 02/20/24 22:40 Sudafed) Surgical History History of cholecystectomy Hx of brain surgery Hx of appendectomy Hx of section Hx of total adrenalectomy Social History Smoking Status: Current every day smoker tobacco type: cigarettes Homelessness:: Sheltered Physical Exam Const alert, oriented x3 and no apparent distress General Appearance: cooperative HEENT normocephalic and head/scalp atraumatic Eyes PERRL and EOMs intact bilaterally Neck supple and No nodes Resp normal air movement and clear to auscultation bilaterally Cardio regular rate and regular rhythm GI soft to palpation, non-tender and non-distended Extremity General Extremity: Negative for edema Skin Skin Narrative: R foot wrapped, reviewed photos Neuro CN's II-XII intact bilaterally Lab / Micro Data Attestation: I reviewed the patient's lab results. 02/26/24 04:50 02/26/24 04:50 Labs: Laboratory Results - last 24 hr 02/25/24 12:56: Vancomycin Trough 37.5 H 02/25/24 16:08: POC Glucose > 500 H* 02/25/24 21:35: POC Glucose 457 H* 02/25/24 22:20: Glucose 488 H* 02/26/24 04:50: WBC 6.0, RBC 4.42, Hgb 12.8, Hct 37.8, MCV 85.5, MCH 29.0, MCHC 33.9, RDW Std Deviation 39.5, RDW Coeff of Cele 12.7, Plt Count 152, MPV 11.4, I mmature Gran % (Auto) 1.000 H, Neut % (Auto) 64.3, Lymph % (Auto) 15.4 L, [place] % (Auto) 16.6 H, Eos % (Auto) 2.2, Baso % (Auto) 0.5, Absolute Neuts (auto) 3.9, Absolute Lymphs (auto) 0.92, Nucleated RBC % 0, Sodium 141, Potassium 4.5, C hloride 110 H, Carbon Dioxide 24.0, Anion Gap 7, BUN 49 H, Creatinine 2.57 H, Estim Creat Clear Calc 25.15, Est GFR (MDRD) Af Amer 25 L, Est GFR (MDRD) Non-Af 21 L, BUN/Creatinine Ratio 19.1, Glucose 224 H, Calcium 8.3 L 02/26/24 08:01: POC Glucose 194 H 02/26/24 11:04: POC Glucose 342 H Micro: Microbiology 02/24/24 14:38 Bone - 2nd Toe Gram Stain - Final
[2024-02-26 13:41] LABS: Vancomycin, Random Level 28.6 ug/mL (0.0-15.0)
--- NOTE | 2024-02-26 15:21 | PN_ITS ---
Subjective Subjective Patient was seen today for follow up on her right foot. She is resting in bed, appears pain is controlled. She relates she has pain and is asking about stronger pain medication. No c/o f/c/n/v. Objective Data Objective Data Vital Signs: Vital Signs Temp Pulse Resp BP Pulse Ox O2 Del Method 98.7 F 73 15 118/53 L 96 Room Air 02/26/24 11:08 02/26/24 11:08 02/26/24 11:08 02/26/24 11:08 02/26/24 11:08 02/26/24 11:08 Oxygen Delivery Method Room Air Weight: 71.8 kg Body Mass Index (BMI) 26.4 Intake & Output: Intake and Output for Last 24 Hours 02/24/24 02/25/24 02/26/24 23:59 23:59 23:59 Intake Total 2455 / 2455 2175 / 2175 1100 / 1100 Output Total 1999 / 1999 200 / 200 Balance 455 / 455 1974 1100 / 1100 Lab / Micro Data 02/26/24 04:50 02/26/24 04:50 Labs: Laboratory Results - last 24 hr 02/25/24 16:08: POC Glucose > 500 H* 02/25/24 21:35: POC Glucose 457 H* 02/25/24 22:20: Glucose 488 H* 02/26/24 04:50: WBC 6.0, RBC 4.42, Hgb 12.8, Hct 37.8, MCV 85.5, MCH 29.0, MCHC 33.9, RDW Std Deviation 39.5, RDW Coeff of Cele 12.7, Plt Count 152, MPV 11.4, I mmature Gran % (Auto) 1.000 H, Neut % (Auto) 64.3, Lymph % (Auto) 15.4 L, [place] % (Auto) 16.6 H, Eos % (Auto) 2.2, Baso % (Auto) 0.5, Absolute Neuts (auto) 3.9, Absolute Lymphs (auto) 0.92, Nucleated RBC % 0, Sodium 141, Potassium 4.5, C hloride 110 H, Carbon Dioxide 24.0, Anion Gap 7, BUN 49 H, Creatinine 2.57 H, Estim Creat Clear Calc 25.15, Est GFR (MDRD) Af Amer 25 L, Est GFR (MDRD) Non-Af 21 L, BUN/Creatinine Ratio 19.1, Glucose 224 H, Calcium 8.3 L 02/26/24 08:01: POC Glucose 194 H 02/26/24 11:04: POC Glucose 342 H 02/26/24 12:49: Random Vancomycin 28.6 H Micro: Microbiology 02/24/24 14:38 Bone - 2nd Toe Gram Stain - Final 02/21/24 03:38 Ulcer, Decubitus - Right Foot Gram Stain - Final 02/21/24 03:38 Ulcer, Decubitus - Right Foot Wound Culture - Final Meth. resistant Staph. aureus Corynebacterium glucuronolytic Corynebacterium amycolatum Social Homelessness:: Sheltered Physical Exam Const alert, oriented x3 and no apparent distress Constitutional Narrative: reviewed today's wound photos right foot - appears appropriate at this time Assessment & Plan Assessment/Plan (1) Cellulitis of foot, right: (2) Non-pressure chronic ulcer of other part of right foot with fat layer exposed: (3) Diabetic ulcer of right foot: QUALIFIERS: Diabetes mellitus type: type 2 Diabetic foot ulcer location: toe Non-pressure ulcer stage: limited to breakdown of skin Qualified Code(s): E11.621 - Type 2 diabetes mellitus with foot ulcer; L97.511 - Non- pressure chronic ulcer of other part of right foot limited to breakdown of skin PLAN: Plan Evaluation performed, reviewed diagnostic data. s/p wound debridement right foot. Clinically appears pain is controlled and properly managed at this time. Cultures reviewed - patient on antibiotic therapy with ID on consult. Wound care - betadine soln, gauze daily dressing changes. Ok to weightbearing right foot with CAM Walker boot. LEAS were ordered for further evaluation of vascular status - clinically though no evidence of acute ischemia and pedal pulses are palpable. Reviewed and appears to have good arterial flow to foot bilateral. Podiatry will continue to follow.
[2024-02-26 16:17] VITALS: BP 132/52; PULSE 75; RESP 16; TEMP 37.1; O2SAT 95
[2024-02-26 16:37] LABS: Bedside Glucose 238 mg/dL (74-106)
[2024-02-26] MEDS: oxyCODONE 5 MG Tablet PO (20:52)
[2024-02-26 20:54] VITALS: BP 132/69; PULSE 85; RESP 16; TEMP 36.9; O2SAT 96
[2024-02-26] MEDS: 0.9% Saline Lock 10 ML Syringe IV (21:54)
[2024-02-26] MEDS: 0.9% Normal Saline (1000mL) 1,000 ML 100 ML IV (21:54)
[2024-02-26] MEDS: NORMAL SALINE 0.9% IV (21:55)
[2024-02-26] MEDS: DAPTOMYCIN IV (21:55)
[2024-02-26 23:33] LABS: Bedside Glucose 144 mg/dL (74-106)
[2024-02-27] MEDS: Ampicillin/Sulbactam 3 GM in 0.9% Normal Saline (100mL MB+) 100 ML IV ×3 (00:06→22:04)
[2024-02-27] MEDS: QUEtiapine 100 MG Tablet 200 MG PO ×2 (00:07→22:07)
[2024-02-27] MEDS: Doxepin Hcl 25 MG Capsule PO ×2 (00:07→22:06)
[2024-02-27] MEDS: busPIRone 5 MG Tablet 10 MG PO ×4 (00:07→22:06)
[2024-02-27] MEDS: traZODone 50 MG Tablet PO ×2 (00:08→22:06)
[2024-02-27] MEDS: Insulin Glargine-YFGN 100 UNIT/ML Pen 40 UNIT SC ×3 (00:08→22:21)
[2024-02-27] MEDS: hydrOXYzine PAM 25 MG Capsule 50 MG PO ×4 (00:08→22:06)
[2024-02-27] MEDS: Nystatin Powder 15gm Bottle 1 APPLIC TOPICAL ×4 (00:08→22:11)
[2024-02-27 00:10] LABS: Bedside Glucose 216 mg/dL (74-106)
[2024-02-27 00:13] VITALS: BP 136/61; PULSE 88; RESP 16; TEMP 36.6; O2SAT 97
[2024-02-27 04:22] VITALS: BMI 26.4
[2024-02-27 06:43] VITALS: BP 139/65; PULSE 80; RESP 16; TEMP 36.8; O2SAT 96
[2024-02-27] MEDS: oxyCODONE 5 MG Tablet PO ×3 (06:46→22:11)
[2024-02-27 07:36] LABS: Anion Gap 3 (5-15); BUN 50 mg/dL (7-18); BUN/Creat Ratio 16.9 RATIO (10-20); Calcium,Total 8.4 mg/dL (8.5-10.1); Chloride 109 mmol/L (98-107); Creatinine, Serum 2.95 mg/dL (0.55-1.02); EST Glomerular Filtration Rate 18 mL/min (>60); Est Glom Filt Rate - Afr Amer 21 mL/min (>60); Estimated Creatinine Clearance 21.91 ml/min; Glucose 354 mg/dL (74-106); Potassium 4.9 mmol/L (3.5-5.1); Sodium Level 138 mmol/L (136-145)
--- NOTE | 2024-02-27 09:30 | WOUNDNOTE ---
wound photo: right plantar foot
[2024-02-27 09:31] VITALS: BP 152/66; PULSE 77; RESP 18; TEMP 36.6; O2SAT 97
--- NOTE | 2024-02-27 09:31 | WOUNDNOTE ---
wound photo: right dorsal foot
[2024-02-27] MEDS: Enoxaparin 40 MG/0.4 ML Syringe SC (09:48)
[2024-02-27] MEDS: Polyethylene Glycol 3350 17 GM PACKET PO (09:48)
[2024-02-27] MEDS: Methocarbamol 750 MG Tablet PO (09:48)
[2024-02-27] MEDS: lamoTRIgine 25 MG Tablet PO (09:48)
[2024-02-27] MEDS: QUEtiapine 100 MG Tablet PO (09:48)
[2024-02-27] MEDS: Pantoprazole Sodium 40 MG Tablet PO (09:49)
[2024-02-27] MEDS: ARIPiprazole 5 MG Tablet PO (09:49)
[2024-02-27] MEDS: 0.9% Normal Saline (1000mL) 1,000 ML 100 ML IV ×2 (09:49→22:04)
[2024-02-27] MEDS: Acetaminophen 500 MG Tablet PO (09:49)
[2024-02-27] MEDS: Insulin Lispro 100 UNIT/ML INSULN.PEN SC ×4 (09:53→22:20)
[2024-02-27] MEDS: Insulin Lispro 100 UNIT/ML INSULN.PEN 15 UNIT SC ×3 (09:54→16:47)
--- NOTE | 2024-02-27 10:21 | PN.HOSP_ITS ---
Subjective Subjective Doing well, no issues overnight. Pain is controlled Objective Data Objective Data Vital Signs: Vital Signs Temp Pulse Resp BP Pulse Ox O2 Del Method 97.8 F 77 18 152/66 H 97 Room Air 02/27/24 09:31 02/27/24 09:31 02/27/24 09:31 02/27/24 09:31 02/27/24 09:31 02/27/24 09:31 Oxygen Delivery Method Room Air Weight: 158 lb 4.67 oz Body Mass Index (BMI) 26.4 Intake & Output: Intake and Output for Last 24 Hours 02/26/24 02/27/24 02/28/24 03:59 03:59 03:59 Intake Total 2175 / 2175 2005. 835 / 835 Output Total 200 / 200 1000 / 1000 Balance 1974.00 -165 / -165 Lab / Micro Data 02/26/24 04:50 02/27/24 06:54 Labs: Laboratory Results - last 24 hr 02/26/24 11:04: POC Glucose 342 H 02/26/24 12:49: Random Vancomycin 28.6 H 02/26/24 16:16: POC Glucose 238 H 02/26/24 22:06: POC Glucose 144 H 02/26/24 23:51: POC Glucose 216 H 02/27/24 06:54: Sodium 138, Potassium 4.9, Chloride 109 H, Carbon Dioxide 26.0, Anion Gap 3 L, BUN 50 H, Creatinine 2.95 H, Estim Creat Clear Calc 21.91, Est GFR (MDRD) Af Amer 21 L, Est GFR (MDRD) Non-Af 18 L, BUN/Creatinine Ratio 16.9, Glucose 354 H, Calcium 8.4 L Micro: Microbiology 02/24/24 14:38 Bone - 2nd Toe Gram Stain - Final 02/24/24 14:38 Bone - 2nd Toe Wound Culture - Final No growth aerobically. 02/24/24 14:38 Bone - 2nd Toe Anaerobic Culture - Preliminary No growth in 48 hours. 02/21/24 03:38 Ulcer, Decubitus - Right Foot Gram Stain - Final 02/21/24 03:38 Ulcer, Decubitus - Right Foot Wound Culture - Final Meth. resistant Staph. aureus Corynebacterium glucuronolytic Corynebacterium amycolatum Social Homelessness:: Sheltered Physical Exam Narrative General: Alert, oriented x 3, Cooperative, No apparent distress HEENT: Atraumatic, PERRLA, EOMI, Normocephalic Oral: Moist Mucosa Neck: Supple, No JVD Lungs: Diminished, Normal air movement, No rhonchi, No wheeze, No rales Cardiovascular: Regular rate, Regular Rhythm, Normal S1, Normal S2, No murmurs Abdomen: Soft, Non Tender, Non-Distended, No Hepato-splenomegaly Extremities: No edema, Capillary Refill Less than 3 Seconds Skin: Right lower extremity wrapped dressing intact Musculoskeletal: No Tenderness to Palpation of Joints or Extremities Neurological: No focal neurological deficits, Motor Exam 5/5 strength throughout, Sensory exam intact to light touch and pain Psych/Mental Status: Normal Affect, Appropriate Assessment & Plan Assessment/Plan (1) Cellulitis of foot, right: (2) Diabetic ulcer of right foot: QUALIFIERS: Diabetic foot ulcer location: toe Diabetes mellitus type: type 2 Non-pressure ulcer stage: limited to breakdown of skin Qualified Code(s): E11.621 - Type 2 diabetes mellitus with foot ulcer; L97.511 - Non- pressure chronic ulcer of other part of right foot limited to breakdown of skin PLAN: Plan 1. Cellulitis of the Right Foot and contiguous cellulitis the second toe of the Right Foot with KASSY- Admit to general medical floor. Continue empiric IV Zosyn and IV Vancomycin and await culture and sensitivity. Check MRSA PCR of wound. Pain control. Consult Dr. Villagran of the podiatry service. MRSA PCR is positive. Foot x-ray shows persistent fracture of proximal phalanx of fifth toe with soft tissue swelling without definite evidence of osteomyelitis. MRI foot is ordered 02/21: MRI foot reviewed. There is suspicion of osteomyelitis. Plantar ulcer between first and second toe. Plan for OR on Saturday. 02/22: Prelim wound culture shows Staph aureus 1+, 1+ GPR. Sensitivity pending. Continue vancomycin and Zosyn. Plan for OR on Saturday02/24/2024: Plan for OR debridement and second metatarsal amputation 02/25/2024: Creatinine has increased to 1.8 today baseline is around 0.6, will start her on 2 L of IV fluids. ABIs are little bit elevated to 1.3 on the right ankle well 02/26/2024: Continue the encourage p.o. intake, in the meantime renal function has worsened and will give her another 2 L of IV fluids 02/27/2024: Urine studies are still pending however given the rise in her creatinine again today despite continued IV fluids, will consult nephrology antibiotics were changed as there is the possible concern for ATN/AIN. No signs of eosinophilia on CBC 2. DM-2; uncontrolled with hyperglycemia and diabetic neuropathy worsened due to Medical nonadherence- Noted. Case Management will be consulted to get additional resources for this patient in an effort to prevent further serial readmission. 02/20: Glucose is high 309 and 376. Lantus insulin dose increased. 02/21: Lantus dose was increased. Patient started on Humalog scheduled dose 10 units 3 times daily with meal. 02/22: Glucose still high in the range of 250-300 therefore Lantus and Humalog insulin dose increased. 02/24/2024: Continue to adjust insulin, her glucose control is terrible with an A1c of 11.2 4. History of Cellulitis with a Large Left lower abdominal wall Abscess admitted here from 11/11/2023 to 11/14/2023 that was complicated by medical noncompliance with patient then leaving this hospital AMA and then also not getting her prescriptions filled - Noted. 5. Bipolar disorder - Resume home regimen as before. 6. History of HEBER - Start nocturnal CPAP. 7. GERD - Continue PPI as previous. 8. OA; with low back pain - Give Tylenol prn. DVT: Lovenox Charges/Coding Visit Charges Inpatient E&M: 58555 Subs Hosp L2
[2024-02-27 11:17] LABS: Bedside Glucose 352 mg/dL (74-106)
[2024-02-27 14:39] VITALS: BP 122/71; PULSE 87; RESP 18; TEMP 36.5; O2SAT 95
--- NOTE | 2024-02-27 14:59 | PCM.PN.ID ---
Physical Exam Narrative Feeling ok, mild soreness in foot, no fever Const alert and no apparent distress General Appearance: cooperative Resp normal air movement and clear to auscultation bilaterally Cardio regular rate and regular rhythm GI soft to palpation, non-tender and non-distended Skin Skin Narrative: foot wrapped ID ID: Route of nutrition/ use of supplements: [] Nutritional Intake: [] IV Site: [] Matos Catheter: [] Assessment & Plan Assessment/Plan (1) Insulin dependent diabetes mellitus: (2) Cellulitis of foot, right: PLAN: Taken to OR 02/24/[address] Simpson for I&D and 2nd met osteotomy. Suspected osteo, surg cx ngtd. With KASSY 02/26/24, changed to dapto, unasyn. Wound cx with MRSA and corynebacter x2. Will follow, d/w Dr. Ma
--- NOTE | 2024-02-27 16:15 | PCM.OPRPT ---
Operative Report (Standard) Operative Information Surgery/Procedure Performed: Transmetatarsal amputation, right foot Surgeon: Sudhir Simpson Date of Procedure: 02/27/24 Procedure Start Time: 15:12 Procedure Stop Time: 16:12 Pre-Operative Diagnosis: Gangrene right forefoot Post-Operative Diagnosis: Same Type of Anesthesia: General and Local Estimated Blood Loss: 30mL Specimen collected: Yes Description of specimen(s) removed: Right forefoot sent to pathology Description of surgery: Indications: 53 year old female with history of significant peripheral vascular disease s/p right LE by pass surgery x 2, has forefoot gangrene to 1,2,3,4 toes. Discussed options with patient and she elected to proceed with transmetatarsal amputation right foot. 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
[2024-02-27 16:34] LABS: Bedside Glucose 248 mg/dL (74-106)
--- NOTE | 2024-02-27 17:11 | PN_ITS ---
Subjective Subjective Patient was seen today for follow up on her right foot. She is resting comfortably in bed eating dinner. She has no new complaints at this time. Her creatinine has been increasing. Objective Data Objective Data Vital Signs: Vital Signs Temp Pulse Resp BP Pulse Ox O2 Del Method 97.7 F L 87 18 122/71 H 95 Room Air 02/27/24 14:39 02/27/24 14:39 02/27/24 14:39 02/27/24 14:39 02/27/24 14:39 02/27/24 14:39 Oxygen Delivery Method Room Air Weight: 71.8 kg Body Mass Index (BMI) 26.4 Intake & Output: Intake and Output for Last 24 Hours 02/25/24 02/26/24 02/27/24 23:59 23:59 23:59 Intake Total 2175 / 2175 1785.67 / 1785.67 1627.33 / 1627.33 Output Total 200 / 200 1000 / 1000 Balance 1974 / 1974 1785.67 / 1785.67 627.33 / 627.33 Lab / Micro Data 02/26/24 04:50 02/27/24 06:54 Labs: Laboratory Results - last 24 hr 02/26/24 22:06: POC Glucose 144 H 02/26/24 23:51: POC Glucose 216 H 02/27/24 06:54: Sodium 138, Potassium 4.9, Chloride 109 H, Carbon Dioxide 26.0, Anion Gap 3 L, BUN 50 H, Creatinine 2.95 H, Estim Creat Clear Calc 21.91, Est GFR (MDRD) Af Amer 21 L, Est GFR (MDRD) Non-Af 18 L, BUN/Creatinine Ratio 16.9, Glucose 354 H, Calcium 8.4 L 02/27/24 11:00: POC Glucose 352 H 02/27/24 16:16: POC Glucose 248 H Micro: Microbiology 02/24/24 14:38 Bone - 2nd Toe Gram Stain - Final 02/24/24 14:38 Bone - 2nd Toe Wound Culture - Final No growth aerobically. 02/24/24 14:38 Bone - 2nd Toe Anaerobic Culture - Preliminary No growth in 48 hours. 02/21/24 03:38 Ulcer, Decubitus - Right Foot Gram Stain - Final 02/21/24 03:38 Ulcer, Decubitus - Right Foot Wound Culture - Final Meth. resistant Staph. aureus Corynebacterium glucuronolytic Corynebacterium amycolatum Social Homelessness:: Sheltered Physical Exam Const alert, oriented x3 and no apparent distress Constitutional Narrative: reviewed today's wound photos right foot - appears appropriate at this time Assessment & Plan Assessment/Plan (1) Cellulitis of foot, right: (2) Non-pressure chronic ulcer of other part of right foot with fat layer exposed: (3) Diabetic ulcer of right foot: QUALIFIERS: Diabetic foot ulcer location: toe Diabetes mellitus type: type 2 Non-pressure ulcer stage: limited to breakdown of skin Qualified Code(s): E11.621 - Type 2 diabetes mellitus with foot ulcer; L97.511 - Non- pressure chronic ulcer of other part of right foot limited to breakdown of skin PLAN: Plan Evaluation performed, reviewed diagnostic data. s/p wound debridement right foot. Clinically appears pain is controlled and properly managed at this time. Cultures reviewed - patient on antibiotic therapy with ID on consult. Wound care - betadine soln, gauze daily dressing changes. Ok to weightbearing right foot with CAM Walker boot. LEAS were ordered for further evaluation of vascular status - clinically though no evidence of acute ischemia and pedal pulses are palpable. Reviewed and appears to have good arterial flow to foot bilateral. Podiatry will continue to follow.
--- NOTE | 2024-02-27 18:41 | PCM.CONS.R ---
Assessment & Plan Assessment/Plan (1) KASSY (acute kidney injury): PLAN: Plan Impression/Plan: The patient is a 53-year-old female with past history of type 2 diabetes mellitus, hypertension, sarcoidosis, COPD, GERD, and bipolar disorder. The patient presented to hospital on 02/20/2024 with right foot pain and erythema. She was diagnosed with right foot cellulitis with suspicion for osteomyelitis. Nephrology is asked to the patient because of KASSY. Acute kidney injury. Patient has normal baseline renal function. Serum creatinine was 0.76 mg/dL as recently as 02/20/2024. Serum creatinine increased on 02/25/2024 up to 1.80 mg/dL. Serum creatinine has increased further to 2.95 mg/dL today on 02/27/2024. The patient is not oliguric. There is no persistent/prolonged hypotension since admission on review of record. It was possible to KASSY could be from nephrotoxic ATN related to vancomycin exposure in the setting of concurrent use of piperacillin?tazobactam. Another possibility would be acute GN related to osteomyelitis. I will check urinalysis, urine indices and complements. We will check renal ultrasound to be complete. However, I have low suspicion for obstructive KASSY. There is no need for kidney replacement therapy today. She is not hyperkalemic, volume overloaded or acidotic. Agree with discontinuing vancomycin. Will recheck renal function, volume status, acid-base and electrolytes again tomorrow. HPI Consult Data Date of Consult: 02/27/24 HPI Narrative Reason for Consultation: KASSY HPI Narrative: The patient is a 53-year-old female with past history of type 2 diabetes mellitus, hypertension, sarcoidosis, COPD, GERD, and bipolar disorder. The patient presented to hospital on 02/20/2024 with right foot pain and erythema. She was diagnosed with right foot cellulitis with suspicion for osteomyelitis. Nephrology is asked to the patient because of KASSY. Patient has no prior history of CKD. Serum creatinine was 0.76 mg/dL on 02/20/2024. Serum creatinine has increased to 2.95 mg/dL today. The patient was initially treated for cellulitis with IV piperacillin?tazobactam along with IV vancomycin. There has been no prolonged hypotension since admission on review of record. Piperacillin/tazobactam and vancomycin have been discontinued, and the patient is now on daptomycin. The patient denies current chest pain, dyspnea, or nausea. She did have nausea with dry heaves on 02/26/2024. Appetite remains poor today. She denies LUTS. There has been no gross hematuria or dysuria. [facility] Medical History MRSA (methicillin resistant staph aureus) culture positive Hearing loss, left Cancer Anxiety Depression Bipolar disorder GERD (gastroesophageal reflux disease) Cirrhosis Hepatitis Smoker On home oxygen therapy COPD (chronic obstructive pulmonary disease) Failure of outpatient treatment Abnormal EKG Preoperative cardiovascular examination Abdominal wall abscess Hypertension Neuropathy Diabetes Sarcoidosis Home Medications ?Medication ?Instructions ?Recorded ?Last Taken ?Type buspirone 10 mg tablet 10 mg PO TID depression 07/19/13 02/17/24 History aripiprazole 5 mg tablet 5 mg PO DAILY antidepressant 02/08/24 02/17/24 History doxepin 25 mg capsule 25 mg PO QHS bipolar 02/08/24 02/17/24 History hydroxyzine pamoate 25 mg capsule 50 mg PO TID anxiety 02/08/24 02/17/24 History (Vistaril) insulin glargine 100 unit/mL (3 25 unit subcut DAILY blood sugar 02/08/24 Unknown History mL) subcutaneous pen (Lantus Solostar U-100 Insulin) insulin lispro 100 unit/mL See Protocol subcut ACHS blood 02/08/24 02/17/24 History subcutaneous pen sugar lamotrigine 25 mg tablet 25 mg PO DAILY bipolar 02/08/24 02/17/24 History methocarbamol 750 mg tablet 750 mg PO Q6H PRN PRN muscle 02/08/24 02/17/24 History relaxer omeprazole 40 mg capsule,delayed 40 mg PO DAILY acid reflux 02/08/24 02/17/24 History release pen needle, diabetic 31 gauge x #100 ea 02/08/24 Unknown Rx 1/4 quetiapine 100 mg tablet 100 mg PO DAILY bipolar 02/08/24 02/17/24 History quetiapine 200 mg tablet 200 mg PO QHS bipolar 02/08/24 02/16/24 History linaclotide 72 mcg capsule 72 mcg PO DAILY bowels 02/09/24 02/17/24 History (Linzess) cyclobenzaprine 5 mg PO TID PRN PRN MUSCLE SPASMS 02/20/24 Unknown History Allergy/AdvReac Type Severity Reaction Status Date / Time aspirin AdvReac Other Verified 02/20/24 22:40 hydromorphone (From Dilaudid) AdvReac Other Verified 02/20/24 22:40 pseudoephedrine HCl (From AdvReac Other Verified 02/20/24 22:40 Sudafed) Surgical History History of cholecystectomy Hx of brain surgery Hx of appendectomy Hx of section Hx of total adrenalectomy Social History Smoking Status: Current every day smoker tobacco type: cigarettes Homelessness:: Sheltered ROS ROS Narrative As per HPI otherwise noncontributory Physical Exam Narrative General: Alert and oriented x3, NAD. HEENT: Normocephalic, atraumatic. Mucous membrane moist without erythema. PERRLA, EOMI. Hearing is intact. Neck: Supple, no JVD. Trachea is midline. No thyromegaly or lymphadenopathy. Cardiovascular: Normal S1, S2. No rubs, murmurs, or gallops. Respiratory: Lungs are clear to auscultation bilaterally. No wheezing, rhonchi, or rales. Abdomen: Normal bowel sounds, soft, nontender, no guarding or rebound, no organomegaly. Extremities: No clubbing, cyanosis, or edema. Musculoskeletal: Full passive range of motion, no joint swelling. Psychiatric: Normal mood and affect. Skin: Warm and dry, no rash. Neurologic: Cranial nerve II to XII are grossly intact. No focal neurologic deficits. Lab / Micro Data 02/26/24 04:50 02/27/24 06:54 Labs: Laboratory Results - last 24 hr 02/26/24 22:06: POC Glucose 144 H 02/26/24 23:51: POC Glucose 216 H 02/27/24 06:54: Sodium 138, Potassium 4.9, Chloride 109 H, Carbon Dioxide 26.0, Anion Gap 3 L, BUN 50 H, Creatinine 2.95 H, Estim Creat Clear Calc 21.91, Est GFR (MDRD) Af Amer 21 L, Est GFR (MDRD) Non-Af 18 L, BUN/Creatinine Ratio 16.9, Glucose 354 H, Calcium 8.4 L 02/27/24 11:00: POC Glucose 352 H 02/27/24 16:16: POC Glucose 248 H Micro: Microbiology 02/24/24 14:38 Bone - 2nd Toe Gram Stain - Final 02/24/24 14:38 Bone - 2nd Toe Wound Culture - Final No growth aerobically. 02/24/24 14:38 Bone - 2nd Toe Anaerobic Culture - Preliminary No growth in 48 hours.
--- NOTE | 2024-02-27 18:44 | US_ITS ---
INDICATION: KASSY EXAMINATION: Ultrasound US Kidney(s) complete (eg, kidneys and bladder) TECHNIQUE: Barry scale and color doppler images were obtained of the kidneys. COMPARISON: No relevant prior comparison study available FINDINGS: Technically suboptimal study due to patient condition. RIGHT KIDNEY: 13.4 cm length. There is no hydronephrosis. Small echogenic focus likely calculus 0.5 cm. LEFT KIDNEY: 14.6 cm length. There is no hydronephrosis. Simple cyst upper pole, 0.8 x 0.7 x 0.8 cm. URINARY BLADDER: Mildly distended, and not well-visualized. Bladder volume 234 mL. US/Kidney and Bladder IMPRESSION: No hydronephrosis. Nonobstructing right intrarenal calculus. Electronically Signed: Opal Child MD at 4:32 EST ,
[2024-02-27 20:46] LABS: Mucous, Urine 0 SEEN /hpf (<or=2+)
[2024-02-27 20:56] LABS: Color, Urine Yellow (Yellow); Glucose, Dipstick 100 mg/dl (Normal); Ketone-Dipstick Negative (Negative); Leukocyte Esterase-Dipstick 25 /ul (Negative); Nitrite-Dipstick Negative (Negative); Occult Blood-Urine Negative /ul (Negative); Protein-Dipstick 15 mg/dl (Negative); Urine Bilirubin Dipstick Negative (Negative); Urine Clarity Clear (Clear); Urine Urobilinogen Normal (Normal)
[2024-02-27 21:09] LABS: Squamous Epithelial Cells - UA 10-25 SEEN /hpf (5-10)
[2024-02-27 21:10] LABS: Transitional Epithelial - Ur 0-5 SEEN /hpf (0-5)
[2024-02-27 21:11] LABS: Red Blood Cells-Urine 0-5 SEEN /hpf (0-5); White Blood Cells 5-10 SEEN /hpf (0-5)
[2024-02-27 21:12] LABS: Bacteria RARE /hpf (None Seen)
[2024-02-27 22:01] VITALS: BP 140/64; PULSE 88; RESP 16; TEMP 36.6; O2SAT 99
[2024-02-27] MEDS: 0.9% Saline Lock 10 ML Syringe IV (22:11)
[2024-02-27] MEDS: Ondansetron 4 MG/2 ML Vial IV (22:11)
[2024-02-27 23:15] LABS: Urine Chloride 90 mmol/L (Not Establ.); Urine Sodium 80 mmol/L (Not Establ.)
[2024-02-27 23:17] LABS: Protein, Urine (Random) 16.2 mg/dL (<11.9)
[2024-02-28 04:00] VITALS: BP 135/66; PULSE 79; RESP 16; TEMP 36.6; O2SAT 96
[2024-02-28] MEDS: busPIRone 5 MG Tablet 10 MG PO ×3 (05:40→21:24)
[2024-02-28] MEDS: oxyCODONE 5 MG Tablet PO ×3 (05:41→20:59)
[2024-02-28] MEDS: Nystatin Powder 15gm Bottle 1 APPLIC TOPICAL ×3 (05:41→21:01)
[2024-02-28] MEDS: hydrOXYzine PAM 25 MG Capsule 50 MG PO ×3 (05:41→20:54)
[2024-02-28 06:00] VITALS: BMI 26.4
[2024-02-28 06:37] LABS: Absolute Neutrophil Count 2.7 X10^3/uL (2.0-7.7); Basophil# 0.02 X10^3/uL; Basophil% 0.4 % (0-1); Eosinophil# 0.14 X10^3/uL; Eosinophils% 2.8 % (0-5); Hematocrit 37.8 % (37-47); Hemoglobin 12.3 g/dL (12.0-15.0); Lymphocyte % 27.5 % (19-41); Mean Corp Hgb Conc 32.5 g/dL (32-36); Mean Corpuscular Hgb 28.5 pg (27.0-32.0); Mean Corpuscular Volume 87.5 fL (81-99); Mean Platelet Vol. 10.4 fl (6.2-12.0); Monocyte% 15.7 % (0-10); NRBC Flagged by Analyzer 0 % (0-5); Neutrophil # 2.66 X10^3/uL (2.7-7.7); Neutrophil % 52.2 % (47-70); Platelet Count 156 K/mm3 (150-450); RBC Distribution Width CV 13.2 % (11.6-14.6); RBC Distribution Width SD 41.7 fl (35.1-43.9); Red Blood Count 4.32 M/mm3 (4.2-5.4); White Blood Count 5.1 K/mm3 (4.4-11.0)
[2024-02-28 07:06] LABS: Anion Gap 3 (5-15); BUN 47 mg/dL (7-18); BUN/Creat Ratio 17.4 RATIO (10-20); Calcium,Total 8.5 mg/dL (8.5-10.1); Chloride 114 mmol/L (98-107); EST Glomerular Filtration Rate 20 mL/min (>60); Est Glom Filt Rate - Afr Amer 24 mL/min (>60); Estimated Creatinine Clearance 23.93 ml/min; Glucose 90 mg/dL (74-106); Potassium 4.6 mmol/L (3.5-5.1); Sodium Level 142 mmol/L (136-145)
[2024-02-28 08:38] VITALS: BP 133/61; PULSE 79; RESP 16; TEMP 36.6; O2SAT 94
--- NOTE | 2024-02-28 09:39 | PCM.PN.HOSP ---
Subjective Subjective Renal function started to improve. No issues overnight Objective Data Objective Data Vital Signs: Vital Signs Temp Pulse Resp BP Pulse Ox O2 Del Method 97.9 F 79 16 133/61 H 94 Room Air 02/28/24 08:38 02/28/24 08:38 02/28/24 08:38 02/28/24 08:38 02/28/24 08:38 02/28/24 08:38 Oxygen Delivery Method Room Air Weight: 158 lb 4.67 oz Body Mass Index (BMI) 26.4 Intake & Output: Intake and Output for Last 24 Hours 02/27/24 02/28/24 02/29/24 03:59 03:59 03:59 Intake Total 2038 / 2038 Output Total 1000 / 1000 Balance 1039 / 1039 Lab / Micro Data 02/28/24 06:08 02/28/24 06:08 Labs: Laboratory Results - last 24 hr 02/27/24 11:00: POC Glucose 352 H 02/27/24 16:16: POC Glucose 248 H 02/27/24 20:30: Urine Color Yellow, Urine Clarity Clear, Urine pH 6.0, Ur Specific [place] 1.010, Urine Protein 15 H, Urine Glucose (UA) 100 H, Urine Ketones Negative, Urine Occult Blood Negative, Urine Nitrite Negative, Urine Bilirubin Negative, Urine Urobilinogen Normal, Ur Leukocyte Esterase 25 H, Urine RBC 0-5 SEEN, Urine WBC 5-10 SEEN, Ur Squamous Epith Cells 10-25 SEEN, Ur Transition Epith Cell 0-5 SEEN, Urine Bacteria RARE, Urine Mucus 0 SEEN, U Random Total Protein 16.2 H, Ur Random Sodium 80, Urine Creatinine 29.20, Urine Potassium 18.0, Urine Chloride 90 02/28/24 06:08: WBC 5.1, RBC 4.32, Hgb 12.3, Hct 37.8, MCV 87.5, MCH 28.5, MCHC 32.5, RDW Std Deviation 41.7, RDW Coeff of Cele 13.2, Plt Count 156, MPV 10.4, Immature Gran % (Auto) 1.400 H, Neut % (Auto) 52.2, Lymph % (Auto) 27.5, [place] % (Auto) 15.7 H, Eos % (Auto) 2.8, Baso % (Auto) 0.4, Absolute Neuts (auto) 2.7, Absolute Lymphs (auto) 1.40, Nucleated RBC % 0, Sodium 142, Potassium 4.6, Chloride 114 H, Carbon Dioxide 25.0, Anion Gap 3 L, BUN 47 H, Creatinine 2.70 H, Estim Creat Clear Calc 23.93, Est GFR (MDRD) Af Amer 24 L, Est GFR (MDRD) Non-Af 20 L, BUN/Creatinine Ratio 17.4, Glucose 90, Calcium 8.5 Micro: Microbiology 02/24/24 14:38 Bone - 2nd Toe Gram Stain - Final 02/24/24 14:38 Bone - 2nd Toe Wound Culture - Final No growth aerobically. 02/24/24 14:38 Bone - 2nd Toe Anaerobic Culture - Preliminary No growth in 48 hours. 02/21/24 03:38 Ulcer, Decubitus - Right Foot Gram Stain - Final 02/21/24 03:38 Ulcer, Decubitus - Right Foot Wound Culture - Final Meth. resistant Staph. aureus Corynebacterium glucuronolytic Corynebacterium amycolatum Radiography Diagnostic Testing: Radiology Impression Renal Ultrasound 02/27/24 18:44 IMPRESSION: No hydronephrosis. Nonobstructing right intrarenal calculus. Electronically Signed: Opal Child MD at 4:32 EST , Social Homelessness:: Sheltered Physical Exam Narrative General: Alert, oriented x 3, Cooperative, No apparent distress HEENT: Atraumatic, PERRLA, EOMI, Normocephalic Oral: Moist Mucosa Neck: Supple, No JVD Lungs: Diminished, Normal air movement, No rhonchi, No wheeze, No rales Cardiovascular: Regular rate, Regular Rhythm, Normal S1, Normal S2, No murmurs Abdomen: Soft, Non Tender, Non-Distended, No Hepato-splenomegaly Extremities: No edema, Capillary Refill Less than 3 Seconds Skin: Right lower extremity wrapped dressing intact Musculoskeletal: No Tenderness to Palpation of Joints or Extremities Neurological: No focal neurological deficits, Motor Exam 5/5 strength throughout, Sensory exam intact to light touch and pain Psych/Mental Status: Normal Affect, Appropriate Assessment & Plan Assessment/Plan (1) Cellulitis of foot, right: (2) Diabetic ulcer of right foot: QUALIFIERS: Diabetic foot ulcer location: toe Diabetes mellitus type: type 2 Non-pressure ulcer stage: limited to breakdown of skin Qualified Code(s): E11.621 - Type 2 diabetes mellitus with foot ulcer; L97.511 - Non-pressure chronic ulcer of other part of right foot limited to breakdown of skin PLAN: Plan 1. Cellulitis of the Right Foot and contiguous cellulitis the second toe of the Right Foot with KASSY- Admit to general medical floor. Continue empiric IV Zosyn and IV Vancomycin and await culture and sensitivity. Check MRSA PCR of wound. Pain control. Consult Dr. Villagran of the podiatry service. MRSA PCR is positive. Foot x-ray shows persistent fracture of proximal phalanx of fifth toe with soft tissue swelling without definite evidence of osteomyelitis. MRI foot is ordered 02/21: MRI foot reviewed. There is suspicion of osteomyelitis. Plantar ulcer between first and second toe. Plan for OR on Saturday. 02/22: Prelim wound culture shows Staph aureus 1+, 1+ GPR. Sensitivity pending. Continue vancomycin and Zosyn. Plan for OR on Saturday02/24/2024: Plan for OR debridement and second metatarsal amputation 02/25/2024: Creatinine has increased to 1.8 today baseline is around 0.6, will start her on 2 L of IV fluids. ABIs are little bit elevated to 1.3 on the right ankle well 02/26/2024: Continue the encourage p.o. intake, in the meantime renal function has worsened and will give her another 2 L of IV fluids 02/27/2024: Urine studies are still pending however given the rise in her creatinine again today despite continued IV fluids, will consult nephrology antibiotics were changed as there is the possible concern for ATN/AIN. No signs of eosinophilia on CBC 02/28/2024: Renal function started to improve today with a creatinine of 2.7, appreciate nephrology's assistance. Will await IDs antibiotic recommendations whether he would she will need IV uric and go home on oral antibiotics 2. DM-2; uncontrolled with hyperglycemia and diabetic neuropathy worsened due to Medical nonadherence- Noted. Case Management will be consulted to get additional resources for this patient in an effort to prevent further serial readmission. 02/20: Glucose is high 309 and 376. Lantus insulin dose increased. 02/21: Lantus dose was increased. Patient started on Humalog scheduled dose 10 units 3 times daily with meal. 02/22: Glucose still high in the range of 250-300 therefore Lantus and Humalog insulin dose increased. 02/24/2024: Continue to adjust insulin, her glucose control is terrible with an A1c of 11.2 4. History of Cellulitis with a Large Left lower abdominal wall Abscess admitted here from 11/11/2023 to 11/14/2023 that was complicated by medical noncompliance with patient then leaving this hospital AMA and then also not getting her prescriptions filled - Noted. 5. Bipolar disorder - Resume home regimen as before. 6. History of HEBER - Start nocturnal CPAP. 7. GERD - Continue PPI as previous. 8. OA; with low back pain - Give Tylenol prn. DVT: Lovenox Charges/Coding Visit Charges Inpatient E&M: 19302 Subs Hosp L2
[2024-02-28] MEDS: QUEtiapine 100 MG Tablet PO (09:40)
[2024-02-28] MEDS: lamoTRIgine 25 MG Tablet PO (09:41)
[2024-02-28] MEDS: Enoxaparin 30 MG/0.3 ML Syringe SC (09:41)
[2024-02-28] MEDS: Pantoprazole Sodium 40 MG Tablet PO (09:41)
[2024-02-28] MEDS: ARIPiprazole 5 MG Tablet PO (09:41)
[2024-02-28] MEDS: Ampicillin/Sulbactam 3 GM in 0.9% Normal Saline (100mL MB+) 100 ML IV ×2 (09:45→20:53)
[2024-02-28] MEDS: Acetaminophen 500 MG Tablet PO ×2 (09:50→20:58)
[2024-02-28] MEDS: Insulin Glargine-YFGN 100 UNIT/ML Pen 40 UNIT SC ×2 (09:53→21:00)
[2024-02-28 10:14] LABS: Bedside Glucose 194 mg/dL (74-106)
--- NOTE | 2024-02-28 11:04 | PCM.PN.REN ---
Subjective Subjective Following for KASSY. The patient denies chest pain, shortness of breath at rest. She is occasionally nauseated and did vomit x 1 yesterday. Appetite is picking back up. Objective Data Objective Data Vital Signs: Vital Signs Temp Pulse Resp BP Pulse Ox O2 Del Method 97.9 F 79 16 133/61 H 94 Room Air 02/28/24 08:38 02/28/24 08:38 02/28/24 08:38 02/28/24 08:38 02/28/24 08:38 02/28/24 08:38 Oxygen Delivery Method Room Air Weight: 71.8 kg Body Mass Index (BMI) 26.4 Intake & Output: Intake and Output for Last 24 Hours 02/26/24 02/27/24 02/28/24 23:59 23:59 23:59 Intake Total 1785.67 / 1785.67 2309.33 / 2309.33 Output Total 1000 / 1000 Balance 1785.67 / 1785.67 1309.33 / 1309.33 Lab / Micro Data 02/28/24 06:08 02/28/24 06:08 Labs: Laboratory Results - last 24 hr 02/27/24 11:00: POC Glucose 352 H 02/27/24 16:16: POC Glucose 248 H 02/27/24 20:30: Urine Color Yellow, Urine Clarity Clear, Urine pH 6.0, Ur Specific [place] 1.010, Urine Protein 15 H, Urine Glucose (UA) 100 H, Urine Ketones Negative, Urine Occult Blood Negative, Urine Nitrite Negative, Urine Bilirubin Negative, Urine Urobilinogen Normal, Ur Leukocyte Esterase 25 H, Urine RBC 0-5 SEEN, Urine WBC 5-10 SEEN, Ur Squamous Epith Cells 10-25 SEEN, Ur Transition Epith Cell 0-5 SEEN, Urine Bacteria RARE, Urine Mucus 0 SEEN, U Random Total Protein 16.2 H, Ur Random Sodium 80, Urine Creatinine 29.20, Urine Potassium 18.0, Urine Chloride 90 02/28/24 06:08: WBC 5.1, RBC 4.32, Hgb 12.3, Hct 37.8, MCV 87.5, MCH 28.5, MCHC 32.5, RDW Std Deviation 41.7, RDW Coeff of Cele 13.2, Plt Count 156, MPV 10.4, Immature Gran % (Auto) 1.400 H, Neut % (Auto) 52.2, Lymph % (Auto) 27.5, [place] % (Auto) 15.7 H, Eos % (Auto) 2.8, Baso % (Auto) 0.4, Absolute Neuts (auto) 2.7, Absolute Lymphs (auto) 1.40, Nucleated RBC % 0, Sodium 142, Potassium 4.6, Chloride 114 H, Carbon Dioxide 25.0, Anion Gap 3 L, BUN 47 H, Creatinine 2.70 H, Estim Creat Clear Calc 23.93, Est GFR (MDRD) Af Amer 24 L, Est GFR (MDRD) Non-Af 20 L, BUN/Creatinine Ratio 17.4, Glucose 90, Calcium 8.5 02/28/24 09:52: POC Glucose 194 H Micro: Microbiology 02/24/24 14:38 Bone - 2nd Toe Gram Stain - Final 02/24/24 14:38 Bone - 2nd Toe Wound Culture - Final No growth aerobically. 02/24/24 14:38 Bone - 2nd Toe Anaerobic Culture - Preliminary No growth in 48 hours. 02/21/24 03:38 Ulcer, Decubitus - Right Foot Gram Stain - Final 02/21/24 03:38 Ulcer, Decubitus - Right Foot Wound Culture - Final Meth. resistant Staph. aureus Corynebacterium glucuronolytic Corynebacterium amycolatum Radiography Diagnostic Testing: Radiology Impression Renal Ultrasound 02/27/24 18:44 IMPRESSION: No hydronephrosis. Nonobstructing right intrarenal calculus. Electronically Signed: Opal Child MD at 4:32 EST , Social Homelessness:: Sheltered Physical Exam Narrative General: Alert and oriented x3, NAD. Cardiovascular: Normal S1, S2. No rubs, murmurs, or gallops. Respiratory: Lungs are clear to auscultation bilaterally. No wheezing, rhonchi, or rales. Abdomen: Normal bowel sounds, soft, nontender, no guarding or rebound, no organomegaly. Extremities: No clubbing, cyanosis, or edema. Assessment & Plan Assessment/Plan (1) KASSY (acute kidney injury): PLAN: Plan Impression/Plan: The patient is a 53-year-old female with past history of type 2 diabetes mellitus, hypertension, sarcoidosis, COPD, GERD, and bipolar disorder. The patient presented to hospital on 02/20/2024 with right foot pain and erythema. She was diagnosed with right foot cellulitis with suspicion for osteomyelitis. Nephrology is asked to the patient because of KASSY. Acute kidney injury. Patient has normal baseline renal function. Serum creatinine was 0.76 mg/dL as recently as 02/20/2024. Serum creatinine increased on 02/25/2024 up to 1.80 mg/dL. Serum creatinine has increased further to 2.95 mg/dL on 02/27/2024. Fortunately, renal function has improved from last 24 hours. Serum creatinine has decreased from 2.95 mg/dL on 02/27/2024 down to 2.70 mg/dL today on 02/28/2024. The patient is not oliguric. There is no persistent/prolonged hypotension since admission on review of record. Renal ultrasound was negative for hydronephrosis. KASSY could be from nephrotoxic ATN related to vancomycin. Risk of vancomycin toxicity is increased in the setting of concurrent use of piperacillin?tazobactam. Another possibility would be acute GN related to osteomyelitis. However, urinalysis did not show any significant proteinuria or any microscopic hematuria. There is no need for kidney replacement therapy today since renal function has improved. She is not hyperkalemic, volume overloaded or acidotic. Typically, nephrotoxic ATN from vancomycin improves gradually once vancomycin is discontinued. Will recheck renal function, volume status, acid-base and electrolytes again tomorrow. If renal function remains stable or improved in the next 24 to 48 hours, patient can be discharged from nephrology standpoint with close follow-up as outpatient. Nephrology plan was discussed with Dr. Ma.
[2024-02-28] MEDS: Insulin Lispro 100 UNIT/ML INSULN.PEN SC ×3 (12:09→20:59)
[2024-02-28] MEDS: Insulin Lispro 100 UNIT/ML INSULN.PEN 15 UNIT SC ×2 (12:10→15:41)
[2024-02-28] MEDS: Ondansetron ODT 4 MG Tablet PO ×2 (12:32→20:59)
--- NOTE | 2024-02-28 13:32 | PN.ID_ITS ---
Physical Exam Narrative Feeling better, no fever, no n/v/d. Const alert and no apparent distress General Appearance: cooperative Resp normal air movement and clear to auscultation bilaterally Cardio regular rate and regular rhythm GI soft to palpation, non-tender and non-distended Skin no rashes or lesions noted ID ID: Route of nutrition/ use of supplements: [] Nutritional Intake: [] IV Site: [] Matos Catheter: [] Assessment & Plan Assessment/Plan (1) Insulin dependent diabetes mellitus: (2) Cellulitis of foot, right: PLAN: Taken to OR 02/24/[address] Simpson for I&D and 2nd met osteotomy. Suspected osteo, surg cx ngtd. With KASSY 02/26/24, changed to dapto, unasyn. Wound cx with MRSA and corynebacter x2. KASSY slightly improved today. Ok for ho me with po doxy 100mg bid and po augmentin (likely 500mg daily but dose will depend on GFR) for one more week. Will follow, d/w Dr. Ma
[2024-02-28 14:00] VITALS: BP 135/67; PULSE 82; RESP 16; TEMP 36.8; O2SAT 96
[2024-02-28] MEDS: DAPTOMYCIN IV (15:42)
[2024-02-28] MEDS: NORMAL SALINE 0.9% IV (15:42)
[2024-02-28 16:09] LABS: Bedside Glucose 303 mg/dL (74-106)
[2024-02-28 19:59] LABS: Bedside Glucose 182 mg/dL (74-106)
--- NOTE | 2024-02-28 20:28 | PN_ITS ---
Subjective Subjective Patient was seen for follow up. She is resting talking on phone. She has no new complaints. Objective Data Objective Data Vital Signs: Vital Signs Temp Pulse Resp BP Pulse Ox O2 Del Method 98.2 F 82 16 135/67 H 96 Room Air 02/28/24 14:00 02/28/24 14:00 02/28/24 14:00 02/28/24 14:00 02/28/24 14:00 02/28/24 14:00 Oxygen Delivery Method Room Air Weight: 71.8 kg Body Mass Index (BMI) 26.4 Intake & Output: Intake and Output for Last 24 Hours 02/26/24 02/27/24 02/28/24 23:59 23:59 23:59 Intake Total 1785.67 / 1785.67 2309.33 / 2309.33 2371 / 2371 Output Total 1000 / 1000 100 / 100 Balance 1785.67 / 1785.67 1309.33 / 1309.33 2271 / 2271 Lab / Micro Data 02/28/24 06:08 02/28/24 06:08 Labs: Laboratory Results - last 24 hr 02/27/24 20:30: Urine Color Yellow, Urine Clarity Clear, Urine pH 6.0, Ur Specific Prentiss 1.010, Urine Protein 15 H, Urine Glucose (UA) 100 H, Urine Ketones Negative, Urine Occult Blood Negative, Urine Nitrite Negative, Urine Bilirubin Negative, Urine Urobilinogen Normal, Ur Leukocyte Esterase 25 H, Urine RBC 0-5 SEEN, Urine WBC 5-10 SEEN, Ur Squamous Epith Cells 10-25 SEEN, Ur Transition Epith Cell 0-5 SEEN, Urine Bacteria RARE, Urine Mucus 0 SEEN, U Random Total Protein 16.2 H, Ur Random Sodium 80, Urine Creatinine 29.20, Urine Potassium 18.0, Urine Chloride 90 02/27/24 22:13: POC Glucose 182 H 02/28/24 06:08: WBC 5.1, RBC 4.32, Hgb 12.3, Hct 37.8, MCV 87.5, MCH 28.5, MCHC 32.5, RDW Std Deviation 41.7, RDW Coeff of Cele 13.2, Plt Count 156, MPV 10.4, I mmature Gran % (Auto) 1.400 H, Neut % (Auto) 52.2, Lymph % (Auto) 27.5, Jack % (Auto) 15.7 H, Eos % (Auto) 2.8, Baso % (Auto) 0.4, Absolute Neuts (auto) 2.7, Absolute Lymphs (auto) 1.40, Nucleated RBC % 0, Sodium 142, Potassium 4.6, C hloride 114 H, Carbon Dioxide 25.0, Anion Gap 3 L, BUN 47 H, Creatinine 2.70 H, Estim Creat Clear Calc 23.93, Est GFR (MDRD) Af Amer 24 L, Est GFR (MDRD) Non-Af 20 L, BUN/Creatinine Ratio 17.4, Glucose 90, Calcium 8.5 02/28/24 09:52: POC Glucose 194 H 02/28/24 15:38: POC Glucose 303 H Micro: Microbiology 02/24/24 14:38 Bone - 2nd Toe Gram Stain - Final 02/24/24 14:38 Bone - 2nd Toe Wound Culture - Final No growth aerobically. 02/24/24 14:38 Bone - 2nd Toe Anaerobic Culture - Preliminary No growth in 48 hours. 02/21/24 03:38 Ulcer, Decubitus - Right Foot Gram Stain - Final 02/21/24 03:38 Ulcer, Decubitus - Right Foot Wound Culture - Final Meth. resistant Staph. aureus Corynebacterium glucuronolytic Corynebacterium amycolatum Radiography Diagnostic Testing: Radiology Impression Renal Ultrasound 02/27/24 18:44 IMPRESSION: No hydronephrosis. Nonobstructing right intrarenal calculus. Electronically Signed: Opal Child MD at 4:32 EST , Social Homelessness:: Sheltered Physical Exam Const alert, oriented x3 and no apparent distress Assessment & Plan Assessment/Plan (1) Cellulitis of foot, right: (2) Non-pressure chronic ulcer of other part of right foot with fat layer exposed: (3) Diabetic ulcer of right foot: QUALIFIERS: Diabetic foot ulcer location: toe Diabetes mellitus type: type 2 Non-pressure ulcer stage: limited to breakdown of skin Qualified Code(s): E11.621 - Type 2 diabetes mellitus with foot ulcer; L97.511 - Non- pressure chronic ulcer of other part of right foot limited to breakdown of skin PLAN: Plan Evaluation performed, reviewed diagnostic data. s/p wound debridement right foot. Clinically appears pain is controlled and properly managed at this time. Cultures reviewed - patient on antibiotic therapy with ID on consult. Wound care - betadine soln, gauze daily dressing changes. Ok to weightbearing right foot with CAM Walker boot. Reviewed LEAS and appears to have good arterial flow to foot bilateral. Podiatry will continue to follow.
[2024-02-28 20:46] VITALS: BP 141/64; PULSE 85; RESP 16; TEMP 37.1; O2SAT 94
[2024-02-28] MEDS: QUEtiapine 100 MG Tablet 200 MG PO (21:08)
[2024-02-28] MEDS: Doxepin Hcl 25 MG Capsule PO (21:08)
[2024-02-28 21:43] LABS: Bedside Glucose 158 mg/dL (74-106)
[2024-02-29 01:03] VITALS: BMI 26.4
[2024-02-29 02:44] VITALS: BP 132/59; PULSE 78; RESP 16; TEMP 37.1; O2SAT 96
[2024-02-29] MEDS: Acetaminophen 500 MG Tablet PO (04:07)
[2024-02-29] MEDS: oxyCODONE 5 MG Tablet PO (04:07)
[2024-02-29] MEDS: hydrOXYzine PAM 25 MG Capsule 50 MG PO (05:22)
[2024-02-29] MEDS: Nystatin Powder 15gm Bottle 1 APPLIC TOPICAL (05:22)
[2024-02-29] MEDS: busPIRone 5 MG Tablet 10 MG PO (05:22)
[2024-02-29 05:47] LABS: Bedside Glucose 328 mg/dL (74-106)
[2024-02-29] MEDS: Insulin Lispro 100 UNIT/ML INSULN.PEN SC (06:11)
[2024-02-29] MEDS: Insulin Lispro 100 UNIT/ML INSULN.PEN 15 UNIT SC (06:11)
[2024-02-29 07:11] LABS: Anion Gap 3 (5-15); BUN 40 mg/dL (7-18); BUN/Creat Ratio 14.9 RATIO (10-20); Calcium,Total 8.4 mg/dL (8.5-10.1); Chloride 110 mmol/L (98-107); Creatinine, Serum 2.69 mg/dL (0.55-1.02); EST Glomerular Filtration Rate 20 mL/min (>60); Est Glom Filt Rate - Afr Amer 24 mL/min (>60); Estimated Creatinine Clearance 24.02 ml/min; Glucose 342 mg/dL (74-106); Potassium 5.1 mmol/L (3.5-5.1); Sodium Level 138 mmol/L (136-145)
[2024-02-29 07:38] VITALS: BP 120/64; PULSE 78; RESP 16; TEMP 36.6; O2SAT 97
--- NOTE | 2024-02-29 08:42 | PCM.DC ---
Discharge Instructions Diet Discharge Diet: Carb Control Diet Activity Discharge Activity: Return to Normal Activity and May Not Drive (While on any narcotics) Weight Bearing Status: Weight bearing as tolerated Dressing / Incision Call your doctor if your incision/area has: Sudden Increased Bleeding, Increased Redness and Foul Smelling Discharge Call your doctor if you observe: Fever of 101 or Higher, Shortness of breath, Dizziness, Fainting spells, Swelling in the ankles, Chest pain and Increased palpitations (irregular heartbeat) Follow Up Care Test Results: Test results from this visit will be discussed in further detail at your follow-up appointment, if applicable. Discharge Plan Admission Admit Date/Time: 02/21/24 01:56 Attending Provider: Farhad Ma Primary Care Provider: Fely Bose Consulting Providers: Vicente Mao; Sudhir Simpson; Dao Gagnon; Carmine Barriga; Ingrid Brooks Discharge Orders/Prescriptions Prescriptions: New oxycodone 5 mg Tablet 5 mg PO Q6H PRN PRN (Reason: pain 4-10) 3 Days Qty: 10 0RF doxycycline monohydrate 100 mg capsule 100 mg PO BID Qty: 14 0RF amoxicillin-pot clavulanate 250-125 mg tablet 1 tab PO BID Qty: 14 0RF Continued buspirone 10 MG tablet 10 mg PO TID hydroxyzine pamoate [Vistaril] 25 mg capsule 50 mg PO TID omeprazole 40 mg capsule,delayed release(DR/EC) 40 mg PO DAILY insulin lispro 100 unit/mL insulin pen See Protocol subcut ACHS Protocol: 5. Sliding Scale Insulin High Dosing Condition: 150-209 mg/dl = 3 units Condition: 210-259 mg/dl = 6 units Condition: 260-324 mg/dl = 9 units Condition: 325-374 mg/dl = 12 units Condition: 375-409 mg/dl = 14 units Condition: 410-449 mg/dl = 16 units Condition: Greater than 449 call physician Protocol Text: Suggested for: - Patients on Total Daily Insulin Dose of 81-120 units - Very insulin resistant patients HIGH DOSING ALGORITHM Patient Comments: WAS TAKING, BUT DOES NOT CURRENTLY HAVE Rx Instructions: subcutaneously; aripiprazole 5 mg tablet 5 mg PO DAILY doxepin 25 mg capsule 25 mg PO QHS lamotrigine 25 mg tablet 25 mg PO DAILY methocarbamol 750 mg tablet 750 mg PO Q6H PRN PRN (Reason: muscle relaxer) quetiapine 200 mg tablet 200 mg PO QHS quetiapine 100 mg tablet 100 mg PO DAILY Rx Instructions: takes in morning (DME) pen needle, diabetic 31 gauge x 1/4 needle See Rx Instructions .Route Qty: 100 0RF Rx Instructions: As directed Linzess 72 mcg capsule 72 mcg PO DAILY cyclobenzaprine 5 mg PO TID PRN PRN (Reason: MUSCLE SPASMS) Changed insulin glargine [Lantus Solostar U-100 Insulin] 100 unit/mL (3 mL) insulin pen 40 unit subcut DAILY Qty: 15 0RF Patient Comments: WAS TAKING, BUT DOES NOT CURRENTLY HAVE Referrals / Follow Up: Fely Bose MD [Primary Care Provider] - 03/11/24 1:30 pm (Your actual appointment is at 2pm but please arrive at 1:30pm to complete paperwork. Also call the office to obtain outpatient lab work early next week to monitor kidney function) Sudhir Simpson DPM [Med Staff - Active Staff] - Within 1 Month Disposition Disposition (needs filled in before D/C Order can be placed): Home, Self Care
--- NOTE | 2024-02-29 09:08 | PN_ITS ---
Subjective Subjective Patient was seen this morning for follow up right foot. She denies f/c/n/v. Objective Data Objective Data Vital Signs: Vital Signs Temp Pulse Resp BP Pulse Ox O2 Del Method 97.8 F 78 16 120/64 97 Room Air 02/29/24 07:38 02/29/24 07:38 02/29/24 07:38 02/29/24 07:38 02/29/24 07:38 02/29/24 07:38 Oxygen Delivery Method Room Air Weight: 71.8 kg Body Mass Index (BMI) 26.4 Intake & Output: Intake and Output for Last 24 Hours 02/27/24 02/28/24 02/29/24 23:59 23:59 23:59 Intake Total 2309.33 / 2309.33 2483 / 2483 800 / 800 Output Total 1000 / 1000 100 / 100 Balance 1309.33 / 1309.33 2383 / 2383 800 / 800 Lab / Micro Data 02/28/24 06:08 02/29/24 05:53 Labs: Laboratory Results - last 24 hr 02/27/24 22:13: POC Glucose 182 H 02/28/24 09:52: POC Glucose 194 H 02/28/24 15:38: POC Glucose 303 H 02/28/24 20:50: POC Glucose 158 H 02/29/24 05:27: POC Glucose 328 H 02/29/24 05:53: Sodium 138, Potassium 5.1, Chloride 110 H, Carbon Dioxide 25.0, Anion Gap 3 L, BUN 40 H, Creatinine 2.69 H, Estim Creat Clear Calc 24.02, Est GFR (MDRD) Af Amer 24 L, Est GFR (MDRD) Non-Af 20 L, BUN/Creatinine Ratio 14.9, Glucose 342 H, Calcium 8.4 L Micro: Microbiology 02/24/24 14:38 Bone - 2nd Toe Gram Stain - Final 02/24/24 14:38 Bone - 2nd Toe Wound Culture - Final No growth aerobically. 02/24/24 14:38 Bone - 2nd Toe Anaerobic Culture - Preliminary No growth in 48 hours. 02/21/24 03:38 Ulcer, Decubitus - Right Foot Gram Stain - Final 02/21/24 03:38 Ulcer, Decubitus - Right Foot Wound Culture - Final Meth. resistant Staph. aureus Corynebacterium glucuronolytic Corynebacterium amycolatum Social Homelessness:: Sheltered Physical Exam Const alert, oriented x3 and no apparent distress Constitutional Narrative: Right foot incision site dorsal foot well coapted and sutures intact, healing, plantar forefoot ulcer tissues viable and healthy base granular and margins viable and intact, no maloder, no necrosis, no streaking, color is good, no purulence, no visible abscess - healing appropriately at this time, CFT < 2 seconds with normal temperature, there is some localized edema to foot, no leg edema or pain. Assessment & Plan Assessment/Plan (1) Cellulitis of foot, right: (2) Non-pressure chronic ulcer of other part of right foot with fat layer exposed: (3) Diabetic ulcer of right foot: QUALIFIERS: Diabetes mellitus type: type 2 Diabetic foot ulcer location: toe Non-pressure ulcer stage: limited to breakdown of skin Qualified Code(s): E11.621 - Type 2 diabetes mellitus with foot ulcer; L97.511 - Non- pressure chronic ulcer of other part of right foot limited to breakdown of skin PLAN: Plan Evaluation performed, reviewed diagnostic data. s/p wound debridement right foot 02/24/2024. Healining appropriately at this time. Cultures reviewed - patient on antibiotic therapy with ID on consult, doxy and augmentin for d/c. Wound care - betadine soln, gauze daily dressing changes. Ok to weightbearing right foot with CAM Walker boot. Reviewed LEAS and noted good arterial flow to foot bilateral. Podiatry will continue to follow.
--- NOTE | 2024-02-29 09:54 | CASEMGMT ---
[facility] NOTE: Pt being discharged. Per Dr Simpson, pt needs a walker. FWW taken to pt's room from [facility] and given to pt. Consignment form signed by pt and sent to [facility] via [employer] and also faxed. Questions answered re: f/u appts, medications. She denies having other questions/conerns at this time. Pt made aware to ask RN who reviews her discharge instructions w/her, if she has any further questions at that time. Arminda PEREZN GOLD CM
--- NOTE | 2024-02-29 12:56 | DS.PCM_ITS ---
Providers Date of Admission: 02/21/24 Primary Care Physician: Dr. Fely Bose MD Consultations 02/21/24 02:04 Consult: Onc/Wound/fitness sales associate Routine Comment: Reason for Consult:: Worsening Right DFU. 02/21/24 03:42 Consult: Onc/Wound/fitness sales associate Routine Comment: 02/22/24 07:29 Consult: Podiatry Routine Consulting Provider: Sudhir Simpson Reason for Consult: right foot ulcer EMERGENT Consult: No MD Notified: Yes Date Notified: 02/21/24 Time Notified: 07:29 Method of Notification: Verbal 02/25/24 10:41 Consult: Infectious Disease Routine Consulting Provider: Carmine Barriga Reason for Consult: DM foot infection s/p 2nd metatar amp EMERGENT Consult: No MD Notified: Yes Date Notified: 02/25/24 Time Notified: 10:41 Method of Notification: Verbal 02/27/24 08:30 Consult: Nephrology Routine Consulting Provider: Ingrid Brooks Reason for Consult: worsening kidney function EMERGENT Consult: No MD Notified: Yes Date Notified: 02/27/24 Time Notified: 08:30 Method of Notification: Text Comments:: Dr. Ma states already talked with. Reason For Visit: RIGHT FOOT CELLULITIS WITH DFU & MEDICAL Diagnosis Discharge Diagnosis (1) Cellulitis of foot, right: Status: Acute Code(s): L03.115 - Cellulitis of right lower limb (2) Non-pressure chronic ulcer of other part of right foot with fat layer exposed: Status: Chronic Code(s): L97.512 - Non-pressure chronic ulcer of other part of right foot with fat layer exposed (3) Diabetic ulcer of right foot: Status: Acute Code(s): E11.621 - Type 2 diabetes mellitus with foot ulcer; L97.519 - Non-pressure chronic ulcer of other part of right foot with unspecified severity Qualifiers: Diabetic foot ulcer location: toe Diabetes mellitus type: type 2 Non- pressure ulcer stage: limited to breakdown of skin Qualified Code(s): E11.621 - Type 2 diabetes mellitus with foot ulcer; L97.511 - Non-pressure chronic ulcer of other part of right foot limited to breakdown of skin Medications at Discharge Home Medications methocarbamol 750 mg tablet 750 mg PO Q6H PRN PRN muscle relaxer 10/26/24 pen needle, diabetic 31 gauge x 1/4 #100 ea 02/08/24 cyclobenzaprine 5 mg PO TID PRN PRN MUSCLE SPASMS 02/20/24 amoxicillin 250 mg-potassium clavulanate 125 mg tablet 1 tab PO BID #14 tabs 02/29/24 aripiprazole 5 mg tablet 5 mg PO DAILY antidepressant 30 days #30 tabs 02/29/24 buspirone 10 mg tablet 10 mg PO TID depression 30 days #90 tabs 02/29/24 doxepin 25 mg capsule 25 mg PO QHS bipolar 30 days #30 caps 02/29/24 doxycycline monohydrate 100 mg capsule 100 mg PO BID #14 caps 02/29/24 hydroxyzine pamoate 25 mg capsule (Vistaril) 50 mg (2 x 25 mg) PO TID anxiety 30 days #180 caps 02/29/24 insulin glargine 100 unit/mL (3 mL) subcutaneous pen (Lantus Solostar U-100 Insulin) 35 unit (0.35 mL) subcut BIDCM blood sugar 30 days #15 mL 02/29/24 insulin lispro 100 unit/mL subcutaneous pen See Protocol subcut ACHS blood sugar 30 days #15 mL 02/29/24 lamotrigine 25 mg tablet 25 mg PO DAILY bipolar 30 days #30 tabs 02/29/24 linaclotide 72 mcg capsule (Linzess) 72 mcg PO DAILY bowels 30 days #30 caps 02/29/24 omeprazole 40 mg capsule,delayed release 40 mg PO DAILY acid reflux 30 days #30 caps 02/29/24 oxycodone 5 mg tablet 5 mg PO Q6H PRN PRN pain 4-10 3 days #10 tabs 02/29/24 quetiapine 100 mg tablet 100 mg PO DAILY bipolar 30 days #30 tabs 02/29/24 quetiapine 200 mg tablet 200 mg PO QHS bipolar 30 days #30 tabs 02/29/24 Hospital Course Operations - (Debridement of ulcer down to and including subcutaneous and fascia layer right foot, 2nd metatarsal osteotomy right foot) Procedures None Summary of Care Provided Minutes Spent on Discharge: 37 Hospital Course: Per HPI: ANA CRISTINA THOMAS, is a 53 F with a past medical history of tobacco abuse, history of HEBER, DM-2; uncontrolled with hyperglycemia, diabetic neuropathy, history of sarcoidosis, GERD, history of brain surgery, history of cocaine abuse, bipolar disorder, history of suicide attempt via intentional drug overdose, history of perirectal abscess, history of Right total adrenalectomy, history of appendectomy, remote history of , OA; with low back pain, history of cellulitis with a large Left lower abdominal wall abscess admitted here from 11/11/2023 to 11/14/2023 that was complicated by medical noncompliance with patient then leaving this hospital AMA and then also not getting her prescriptions filled and recently diagnosed Cellulitis of the Right Foot ~4 weeks ago at another local hospital followed by a recent admission here from February 08, 2024 to February 09, 2024 for Cellulitis of the Right Foot with an accompanying DFU of the second toe of the Right Foot attributable to Medical Noncompliance with her insulin and suspected Failure of Outpatient Antibiotic Treatment who once again returns to [facility] ER complaining of worsening Right foot pain and redness. Ms. Thomas states she has once again not been taking her insulin for at least the last 2 days. When EMS checked her blood glucose it was noted to be 508 mg/dL with nausea and chills accompanied by increasing redness streaking up her Right foot in spite of being prescribed recent courses of antibiotics with doxycycline and amoxicillin in the setting of a known history of MRSA. She also states she typically has very little feeling in her Right foot due to her neuropathy - but she now has increasing pain in addition to a worsening ulcer on the plantar surface of the Right foot. She denies associated fever, vomiting, diarrhea, constipation, dysuria, chest pain, SOB or headache. In the ER she was once again diagnosed with Cellulitis of the Right Foot with an accompanying DFU of the second toe of the Right Foot attributable to Medical Noncompliance with her insulin and suspected Failure of Outpatient Antibiotic Treatment and she was then admitted to the general medical floor for ongoing care for a stay that is expected to extend beyond 2 midnights. Hospital Course: 1. Cellulitis of the Right Foot and contiguous cellulitis the second toe of the Right Foot with KASSY- Admit to general medical floor. Continue empiric IV Zosyn and IV Vancomycin and await culture and sensitivity. Check MRSA PCR of wound. Pain control. Consult Dr. Villagran of the podiatry service. MRSA PCR is positive. Foot x-ray shows persistent fracture of proximal phalanx of fifth toe with soft tissue swelling without definite evidence of osteomyelitis. MRI foot is ordered 02/21: MRI foot reviewed. There is suspicion of osteomyelitis. Plantar ulcer between first and second toe. Plan for OR on Saturday. 02/22: Prelim wound culture shows Staph aureus 1+, 1+ GPR. Sensitivity pending. Continue vancomycin and Zosyn. Plan for OR on Saturday02/24/2024: Plan for OR debridement and second metatarsal amputation 02/25/2024: Creatinine has increased to 1.8 today baseline is around 0.6, will start her on 2 L of IV fluids. ABIs are little bit elevated to 1.3 on the right ankle well 02/26/2024: Continue the encourage p.o. intake, in the meantime renal function has worsened and will give her another 2 L of IV fluids 02/27/2024: Urine studies are still pending however given the rise in her creatinine again today despite continued IV fluids, will consult nephrology antibiotics were changed as there is the possible concern for ATN/AIN. No signs of eosinophilia on CBC 02/28/2024: Renal function started to improve today with a creatinine of 2.7, appreciate nephrology's assistance. Will await IDs antibiotic recommendations whether he would she will need IV uric and go home on oral antibiotics 02/29/2024: Renal function today is stable at 2.69, this is likely to be a slow recovery of her renal function and is potentially due to the vancomycin and Zosyn that she had been prescribed. I do recommend she follow-up with her PCP in 3 to 5 days to monitor her renal function. This was discussed with her and the importance of it was discussed with her as well. Discussed with her the plan for discharge today she expressed understanding respect to going home and will go home today. She was placed on 7 days of doxycycline at 100 mg p.o. twice daily as well as Augmentin 250 mg p.o. twice daily secondary to her renal function her creatinine clearance of less than 30. 2. DM-2; uncontrolled with hyperglycemia and diabetic neuropathy worsened due to Medical nonadherence- Noted. Case Management will be consulted to get additional resources for this patient in an effort to prevent further serial readmission. 02/20: Glucose is high 309 and 376. Lantus insulin dose increased. 02/21: Lantus dose was increased. Patient started on Humalog scheduled dose 10 units 3 times daily with meal. 02/22: Glucose still high in the range of 250-300 therefore Lantus and Humalog insulin dose increased. 02/24/2024: Continue to adjust insulin, her glucose control is terrible with an A1c of 11.2 02/29/2024: She is very noncompliant with her diet when it comes to her diabetes. Multiple times in the hospital she will be drinking regular soda and eating foods that are high carbohydrate. I increased her Lantus on discharge 35 units twice daily and prescription was sent to the pharmacy. She also has a sliding scale insulin which was remaining at high dose. I do recommend she would likely need a recruitment coordinator on discharge as well when she can get a referral from her PCP. 4. History of Cellulitis with a Large Left lower abdominal wall Abscess admitted here from 11/11/2023 to 11/14/2023 that was complicated by medical noncompliance with patient then leaving this hospital AMA and then also not getting her prescriptions filled - Noted. 5. Bipolar disorder - Resume home regimen as before. 6. History of HEBER - Start nocturnal CPAP. 7. GERD - Continue PPI as previous. 8. OA; with low back pain - Give Tylenol prn. Physical Exam Narrative General: Alert, oriented x 3, Cooperative, No apparent distress HEENT: Atraumatic, PERRLA, EOMI, Normocephalic Oral: Moist Mucosa Neck: Supple, No JVD Lungs: Diminished, Normal air movement, No rhonchi, No wheeze, No rales Cardiovascular: Regular rate, Regular Rhythm, Normal S1, Normal S2, No murmurs Abdomen: Soft, Non Tender, Non-Distended, No Hepato-splenomegaly Extremities: No edema, Capillary Refill Less than 3 Seconds Skin: Right lower extremity wrapped dressing intact Musculoskeletal: No Tenderness to Palpation of Joints or Extremities Neurological: No focal neurological deficits, Motor Exam 5/5 strength throughout, Sensory exam intact to light touch and pain Psych/Mental Status: Normal Affect, Appropriate Medical Records Data Homelessness:: Sheltered Weight / BMI Weight Weight: 158 lb 4.67 oz Body Mass Index (BMI) 26.4 ABG / Lab / Microbiology Data 02/28/24 06:08 02/29/24 05:53 Laboratory: Laboratory Results - last 24 hr 02/27/24 22:13: POC Glucose 182 H 02/28/24 15:38: POC Glucose 303 H 02/28/24 20:50: POC Glucose 158 H 02/29/24 05:27: POC Glucose 328 H 02/29/24 05:53: Sodium 138, Potassium 5.1, Chloride 110 H, Carbon Dioxide 25.0, Anion Gap 3 L, BUN 40 H, Creatinine 2.69 H, Estim Creat Clear Calc 24.02, Est GFR (MDRD) Af Amer 24 L, Est GFR (MDRD) Non-Af 20 L, BUN/Creatinine Ratio 14.9, Glucose 342 H, Calcium 8.4 L Microbiology: Microbiology 02/24/24 14:38 Bone - 2nd Toe Gram Stain - Final 02/24/24 14:38 Bone - 2nd Toe Wound Culture - Final No growth aerobically. 02/24/24 14:38 Bone - 2nd Toe Anaerobic Culture - Preliminary No growth in 48 hours. 02/21/24 03:38 Ulcer, Decubitus - Right Foot Gram Stain - Final 02/21/24 03:38 Ulcer, Decubitus - Right Foot Wound Culture - Final Meth. resistant Staph. aureus Corynebacterium glucuronolytic Corynebacterium amycolatum D/C Instructions Discharge Diet: Carb Control Diet Weight Bearing Status: Weight bearing as tolerated Call your doctor if your incision/area has: Sudden Increased Bleeding, Increased Redness and Foul Smelling Discharge Call your doctor if you observe: Fever of 101 or Higher, Shortness of breath, Dizziness, Fainting spells, Swelling in the ankles, Chest pain and Increased palpitations (irregular heartbeat) Meaningful Use Info Meaningful Use Meaningful Use Diagnoses (Choose all that apply): None applicable Ischemic Stroke Statin Dosing Therapy Reference: STATIN DOSE THERAPY REFERENCE: * Patients > 75 years receive moderate or high dose statin therapy. * Patients 75 years or YOUNGER should receive HIGH intensity statin dose unless contraindicated. You will be required to document reason for non-treatment if statin daily dose does not meet guidelines. HIGH DOSE STATIN THERAPY DAILY Atorvastatin > than or = to 40 mg Rosuvastatin > than or = to 20 mg Amlodipine + Atorvastatin > than or = to 2.5/40 mg Ezetimibe + Simvastatin 10/80 mg Simvastatin 80mg Discharge Plan Admission Admit Date/Time: 02/21/24 01:56 Attending Provider: Farhad Ma Primary Care Provider: Fely Bose Consulting Providers: Vicente Mao; Sudhir Simpson; Dao Gagnon; Carmine Barriga; Ingrid Brooks Discharge Orders/Prescriptions Prescriptions: New oxycodone 5 mg Tablet 5 mg PO Q6H PRN PRN (Reason: pain 4-10) 3 Days Qty: 10 0RF doxycycline monohydrate 100 mg capsule 100 mg PO BID Qty: 14 0RF amoxicillin-pot clavulanate 250-125 mg tablet 1 tab PO BID Qty: 14 0RF Continued methocarbamol 750 mg tablet 750 mg PO Q6H PRN PRN (Reason: muscle relaxer) (DME) pen needle, diabetic 31 gauge x 1/4 needle See Rx Instructions .Route Qty: 100 0RF Rx Instructions: As directed cyclobenzaprine 5 mg PO TID PRN PRN (Reason: MUSCLE SPASMS) doxepin 25 mg capsule 25 mg PO QHS 30 Days Qty: 30 0RF quetiapine 200 mg tablet 200 mg PO QHS 30 Days Qty: 30 0RF omeprazole 40 mg capsule,delayed release(DR/EC) 40 mg PO DAILY 30 Days Qty: 30 0RF quetiapine 100 mg tablet 100 mg PO DAILY 30 Days Qty: 30 0RF Rx Instructions: takes in morning lamotrigine 25 mg tablet 25 mg PO DAILY 30 Days Qty: 30 0RF buspirone 10 MG tablet 10 mg PO TID 30 Days Qty: 90 0RF hydroxyzine pamoate [Vistaril] 25 mg capsule 50 mg PO TID 30 Days Qty: 180 0RF insulin lispro 100 unit/mL insulin pen See Protocol subcut ACHS 30 Days Qty: 15 0RF Protocol: 5. Sliding Scale Insulin High Dosing Condition: 150-209 mg/dl = 3 units Condition: 210-259 mg/dl = 6 units Condition: 260-324 mg/dl = 9 units Condition: 325-374 mg/dl = 12 units Condition: 375-409 mg/dl = 14 units Condition: 410-449 mg/dl = 16 units Condition: Greater than 449 call physician Protocol Text: Suggested for: - Patients on Total Daily Insulin Dose of 81-120 units - Very insulin resistant patients HIGH DOSING ALGORITHM Rx Instructions: subcutaneously; aripiprazole 5 mg tablet 5 mg PO DAILY 30 Days Qty: 30 0RF Linzess 72 mcg capsule 72 mcg PO DAILY 30 Days Qty: 30 0RF Changed insulin glargine [Lantus Solostar U-100 Insulin] 100 unit/mL (3 mL) insulin pen 35 unit subcut BIDCM 30 Days Qty: 15 0RF Referrals / Follow Up: Fely Bose MD [Primary Care Provider] - 03/11/24 1:30 pm (Your actual appointment is at 2pm but please arrive at 1:30pm to complete paperwork. Also call the office to obtain outpatient lab work early next week to monitor kidney function) Sudhir Simpson DPM [Med Staff - Active Staff] - Within 1 Month Disposition Disposition (needs filled in before D/C Order can be placed): Home, Self Care Charges/Coding Visit Charges Inpatient E&M: 68561 Disch Hosp >30min
[2024-03-05 05:08] LABS: Complement C3 107 mg/dL (82-167)
== END 2024-02-29 12:21 | disposition home or self-care (01) | DRG 571 ==
LOC: ED 23:09 → MS3 02-21 02:05
PROVIDERS: Anesthesiology; Family Medicine; Internal Medicine; Internal Medicine Nephrology; Podiatrist; Admitting Provider Internal Medicine; Emergency Provider Emergency Medicine; PCP Internal Medicine; Visit Provider Family Medicine
PROC: 0JBQ0ZZ Excision of Right Foot Subcutaneous Tissue and Fascia, Open Approach (ICD-10-PCS; principal; 2024-02-24 13:15)
DX: L03.115 Cellulitis of right lower limb (principal); M86.9 Osteomyelitis, unspecified; N17.9 Acute kidney failure, unspecified; E11.621 Type 2 diabetes mellitus with foot ulcer; E11.40 Type 2 diabetes mellitus with diabetic neuropathy, unspecified; B95.62 Methicillin resistant Staphylococcus aureus infection as the cause of diseases classified elsewhere; F31.9 Bipolar disorder, unspecified; J44.9 Chronic obstructive pulmonary disease, unspecified; E11.65 Type 2 diabetes mellitus with hyperglycemia; K21.9 Gastro-esophageal reflux disease without esophagitis; Z79.4 Long term (current) use of insulin; L97.512 Non-pressure chronic ulcer of other part of right foot with fat layer exposed; M79.671 Pain in right foot; G47.33 Obstructive sleep apnea (adult) (pediatric); L97.519 Non-pressure chronic ulcer of other part of right foot with unspecified severity; S92.511A Displaced fracture of proximal phalanx of right lesser toe(s), initial encounter for closed fracture; F17.210 Nicotine dependence, cigarettes, uncomplicated; T36.8X5A Adverse effect of other systemic antibiotics, initial encounter; Z91.148 Patient's other noncompliance with medication regimen for other reason; L03.031 Cellulitis of right toe; Z79.2 Long term (current) use of antibiotics; Z98.890 Other specified postprocedural states; Z79.899 Other long term (current) drug therapy; Z88.6 Allergy status to analgesic agent; Z88.5 Allergy status to narcotic agent; Z88.8 Allergy status to other drugs, medicaments and biological substances; Z90.49 Acquired absence of other specified parts of digestive tract; H91.92 Unspecified hearing loss, left ear; N20.0 Calculus of kidney
CPT/HCPCS: 36415; 73630; 73718; 76770; 80048; 80053; 80202; 80307; 81001; 82009; 82436; 82570; 82947; 82962; 83036; 83605; 83735; 84100; 84133; 84156; 84300; 85025; 85610; 85652; 85730; 86140; 86160; 87015; 87070; 87075; 87077; 87102; 87116; 87186; 87205; 87206; 87640; 88304; 88311; 93005; 93923; 94668; 99281; 99285; J0878; A4216; J0295; J2405

== ENCOUNTER 2024-04-23 12:16 | Inpatient (IN) | payer MEDICARE, MEDICAID, SELFPAY ==
[2024-04-23] VITALS (21 sets, daily range): BP systolic 97–128; BP diastolic 44–62; PULSE 98–136; RESP 15–33; TEMP 36.5–40.2; O2SAT 95–99; BMI 23.6; BMI 22.9
--- NOTE | 2024-04-23 12:31 | EKG12_ITS ---
Test Reason : BLOOD SUGAR Blood Pressure : */* mmHG Vent. Rate : 115 BPM Atrial Rate : 115 BPM P-R Int : 148 ms QRS Dur : 90 ms QT Int : 326 ms P-R-T Axes : 51 -5 22 degrees QTcB Int : 450 ms Sinus tachycardia Otherwise normal ECG Confirmed by Jose Sanchez ([id number]), publications editor SYLVESTER BURCH ([id number]) on 04/24/2024 9:34:54 AM Referred By: Confirmed By: Jose Sanchez
--- NOTE | 2024-04-23 12:32 | EX.ED.DYSGE1 ---
HPI History of Present Illness Chief Complaint: Hyperglycemia Detail of Chief Complaint: Blood sugar greater than 400 Informant: patient Onset/Context/Timing Onset: Days Context: Sudden Onset Timing: Continuous Quality: History of type 1 diabetes, no insulin x 1 week Location: Not applicable Maximum Severity: Severe Worsened by: Lack of insulin Relieved by: Not applicable Associated Symptoms Associated Symptoms: Nausea, decreased urine output, dark urine, thirst, polydipsia Narrative Narrative: Patient is a 53-year-old woman. She was brought in because of blood sugar greater than 400. She states she has not had insulin for a week. She is claiming that her ex- took her insulin. Patient is not oriented x 3. Patient is not awake or alert. Patient denies headache, double vision blurred vision loss of vision. Denies ringing or ears decreased hearing. She denies trouble with speech or swallowing. Patient denies chest pain. She does report mild shortness of breath. She denies abdominal pain. She denies diarrhea. Patient endorses reports dark urine and decreased urine output. She denies dysuria, frequency or urgency. Recent Illness/Hospitalization: No PFSH PFS Medical History MRSA (methicillin resistant staph aureus) culture positive Hearing loss, left Cancer Anxiety Depression Bipolar disorder GERD (gastroesophageal reflux disease) Cirrhosis Hepatitis Smoker On home oxygen therapy COPD (chronic obstructive pulmonary disease) Failure of outpatient treatment Abnormal EKG Preoperative cardiovascular examination Abdominal wall abscess Hypertension Neuropathy Diabetes Sarcoidosis Home Medications ?Medication ?Instructions ?Recorded ?Last Taken ?Type pen needle, diabetic 31 gauge x #100 ea 02/08/24 Unknown Rx 1/4 cyclobenzaprine 5 mg PO TID PRN PRN MUSCLE SPASMS 02/20/24 Unknown History aripiprazole 5 mg tablet 5 mg PO DAILY antidepressant 30 02/29/24 Unknown Rx days #30 tabs buspirone 10 mg tablet 10 mg PO TID depression 30 days 02/29/24 Unknown Rx #90 tabs doxepin 25 mg capsule 25 mg PO QHS bipolar 30 days #30 02/29/24 Unknown Rx caps hydroxyzine pamoate 25 mg capsule 50 mg (2 x 25 mg) PO TID anxiety 02/29/24 Unknown Rx (Vistaril) 30 days #180 caps insulin glargine 100 unit/mL (3 35 unit (0.35 mL) subcut BIDCM 02/29/24 Unknown Rx mL) subcutaneous pen (Lantus blood sugar 30 days #15 mL Solostar U-100 Insulin) insulin lispro 100 unit/mL See Protocol subcut ACHS blood 02/29/24 Unknown Rx subcutaneous pen sugar 30 days #15 mL linaclotide 72 mcg capsule 72 mcg PO DAILY bowels 30 days #30 02/29/24 Unknown Rx (Linzess) caps quetiapine 100 mg tablet 100 mg PO DAILY bipolar 30 days 02/29/24 Unknown Rx #30 tabs quetiapine 200 mg tablet 200 mg PO QHS bipolar 30 days #30 02/29/24 Unknown Rx tabs gabapentin 300 mg capsule 300 mg PO TID 04/23/24 Unknown History Allergy/AdvReac Type Severity Reaction Status Date / Time aspirin AdvReac Other Verified 04/23/24 12:17 hydromorphone (From Dilaudid) AdvReac Other Verified 04/23/24 12:17 pseudoephedrine HCl (From AdvReac Other Verified 04/23/24 12:17 Sudafed) Surgical History History of cholecystectomy Hx of brain surgery Hx of appendectomy Hx of section Hx of total adrenalectomy Social History Smoking Status: Current every day smoker tobacco type: cigarettes ROS ROS ED Constitutional Constitutional ED: Denies chills, fever(s) or subjective Eyes Eyes: Denies change in vision or diplopia ENT ENT ED: Reports other Details: Dry mouth. ; Denies ear pain, rhinorrhea or sore throat Cardiovascular Cardiovascular: Denies chest pain or palpitations Respiratory/Chest Respiratory/Chest: Denies cough, dyspnea or dyspnea on exertion Gastrointestinal Gastrointestinal: Reports nausea; Denies abdominal pain, constipation, diarrhea or vomiting Genitourinary Genitourinary ED: Reports other Details: Detailed HPI narrative ; Denies dysuria, hematuria or urinary frequency Musculoskeletal Musculoskeletal: Denies arthralgias, back pain or myalgias Integumentary Reports rash Neurologic Neurologic: Denies paresthesias or weakness Psychiatric Psychiatric: Denies anxiety Endocrine Endocrinology: Reports polydipsia; Denies polyuria Hematologic/Lymphatic Hematologic/Lymphatic: Reports as per HPI EXAM Physical Exam Const Vital Signs: 04/23/24 12:17 04/23/24 12:19 04/23/24 13:27 Temperature 97.7 F L 102 F H Temperature Source Oral Core Pulse Rate 124 H 119 H Respiratory Rate 20 H 24 H Respiratory Effort Normal Respiratory Pattern Normal Blood Pressure 125/62 H 106/52 L Blood Pressure Mean 83 70 Pulse Ox 98 98 Oxygen Delivery Method Room Air Room Air 04/23/24 14:00 04/23/24 14:26 04/23/24 14:27 Temperature 102 F H 102.8 F H Temperature Source Core Core Pulse Rate 112 H 112 H Respiratory Rate 20 H 32 H Respiratory Effort Respiratory Pattern Blood Pressure 123/48 H 123/48 H 123/48 H Blood Pressure Mean 73 73 73 Pulse Ox 98 99 Oxygen Delivery Method Room Air Positive well nourished and well developed Constitutional Narrative: Patient appears ill. Patient slightly mottled. Vitals are remarkable for tachycardia and tachypnea. She not febrile or hypoxic. Patient is breathing quicker than 20 times a minute. General Appearance ED: well developed; Negative for NAD or pallor Eyes PERRL and EOMs intact bilaterally General Eye ED: Negative for pale conjunctiva or scleral icterus Neck no lymphadenopathy and supple Chest Wall inspection of chest normal and palpation of chest normal Resp normal respiratory effort and clear to auscultation bilaterally Cardio regular rhythm, S1 normal heart sound, S2 normal heart sound and no murmurs Rate: tachycardic GI non-tender, non-distended and no masses; Negative for hepatosplenomegaly Auscultation: hypoactive bowel sounds Palpation: soft Back/Spine no CVA tenderness Extremity Extremity Narrative: Patient has dry skin. There is no swelling, discoloration, leg vein distention or palpable cords. Neuro Neuro Narrative: Patient does not know month, year, day of the week or day of the month. Sensorium / Orientation: Negative for alert Psych Psych Narrative: Affect is flat. Difficult to assess her mood and affect because of her decreased level consciousness. Mood & Affect: depressed Skin no wounds and No skin turgor normal Skin Narrative: Patient has dry skin. General Skin Exam: Negative for elasticity normal or pallor MDM MDM MDM Narrative Medical decision making narrative: With altered mental status tachypnea tachycardia lack of insulin for 1 week concern patient has acute cephalopathy due to hyperglycemia. ED DKA order set was initiated. Need to evaluate for infectious causes as well. Will obtain UA to assess for infection. Since lungs were clear to auscultation and patient has no respiratory complaints chest x-ray was not ordered initially. 1 L of normal saline was ordered. Clinically patient appears dehydrated. History & Record Review Additional record(s) reviewed:: Prior inpatient record (Patient was admitted February 2024 for cellulitis of right foot with nonpressure chronic ulcer with fat layer exposure. Diagnosis on Dr. Nixon illnesses discharge summary indicates patient has type 2 diabetes and not type I.), Prior ED visit (Wound check November 2023 patient was found to have an abdominal wall abscess and noncompliance with medication with hyperglycemia.), Prior labs and Other Lab Data Attestation: I reviewed the patient's lab results. Lab results narrative: White count is elevated 23.4 thousand with shift. There is no bandemia. H&H is normal. There is moderate ketones. Blood sugar is 475 with a sodium of 127 which represents pseudohyponatremia. When corrected for the hyperglycemia sodium is 133. BUN and creatinine are elevated at 40 and 1.43 with an estimated GFR of 41. BUN/creatinine ratio is 28:1. Labs: Laboratory Results - last 24 hr 04/23/24 04/23/24 04/23/24 12:45 13:13 14:15 WBC 23.4 H RBC 5.27 Hgb 14.6 Hct 45.7 MCV 86.7 MCH 27.7 MCHC 31.9 L RDW Std Deviation 41.2 RDW Coeff of Cele 13.0 Plt Count 156 MPV 11.1 Immature Gran % (Auto) 1.300 H Neut % (Auto) 78.9 H Lymph % (Auto) 3.6 L [place] % (Auto) 16.1 H Eos % (Auto) 0.0 Baso % (Auto) 0.1 Absolute Neuts (auto) 18.5 H Absolute Lymphs (auto) 0.84 Nucleated RBC % 0 Differential Comment SCANNED Diff Path Review May foll Sodium 127 L Potassium 3.1 L Chloride 91 L Carbon Dioxide 14.0 L Anion Gap 21 H BUN 40 H Creatinine 1.43 H Estim Creat Clear Calc 40.94 Est GFR (MDRD) Af Amer 49 L Est GFR (MDRD) Non-Af 41 L BUN/Creatinine Ratio 28.0 H Glucose 475 H* Calcium 9.9 Phosphorus 2.1 L Urine Color Yellow Urine Clarity Sl. Cloudy Urine pH 6.0 Ur Specific [place] 1.015 Urine Protein 100 H Urine Glucose (UA) 1000 H Urine Ketones 50 H Urine Occult Blood 25 H Urine Nitrite Negative Urine Bilirubin Negative Urine Urobilinogen Normal Ur Leukocyte Esterase 25 H Urine RBC 0 SEEN Urine WBC 0-5 SEEN Ur Squamous Epith Cells 0-5 SEEN Urine Bacteria 0 SEEN Urine Mucus 0 SEEN Acetone Level MODERATE H BUN and creatinine on February 28 was 40 and 2.69.BUN and creatinine were normal February 24, 2024 at 18 and 0.73. ABG Data ABG results: ABG 04/23/24 13:08 Specimen Type ART Sample Site L Brach pH 7.35 Bicarbonate Actual 13.5 L Total CO2 14 Base Excess -12 L O2 Saturation 94 L ABG pCO2 24.3 L ABG pO2 74 L O2 Delivery Device Not entered Vent Mode Not entered Radiography Chest X-Ray - ED: 1 View, Read by ED Physician (Slightly rotated. There is no evidence of infiltrate or effusion. Lung parenchyma appears normal. Cardiac silhouette size normal. [place] is normal. Osseous trucks unremarkable. Independently interpreted by me at 1315.) and - (Postprocedure chest x-ray reveals line to be in proper position. Is no with a pneumothorax or hemothorax. Other than the lying the chest x-ray is unchanged from initial chest x-ray.) Diagnostic Testing: Clinical Impression(s) from Imaging Studies Chest X-Ray 04/23/24 13:12 IMPRESSION: No acute disease. Electronically Signed: Chavo Felipe MD at 13:39 EST , EKG Initial EKG: Attestation: I personally reviewed and interpreted this EKG as follows: Interpretation: Sinus Tachycardia (Rate is 115. EKG is otherwise normal. CO was under 48 ms. QRS duration 90 ms per QT duration 326 ms. [place] is normal. There is decreased anterior force noted. There is also artifact.) Management Discussion w/another healthcare provider: Hospitalist (Case discussed with Dr. Rojas. Patient be admitted to ICU.) Treatment and Re-Evaluation :: Patient's core temperature to 102.8. There is no obvious source at this time. Will discuss with hospitalist regarding initiation of antibiotics without source. If patient is still not oriented will perform central line with presumed consent since patient presented to the emergency department for emergent care. With the elevated temperature, leukocytosis, tachycardia tachypnea will empirically treat for pneumonia since she has had respiratory like symptoms. Dr. Rojas will obtain a viral panel. Procedures Other Procedures Procedure(s): Consent for central line was not obtained since patient encephalopathic. Patient was prepped draped sterile manner. All participants were a And mask. I was fully gowned per house protocol. The right subclavian area was incised by local filtration with a percent lidocaine. The right subclavian vein was cannulated successfully on first attempt on the way in. Using Seldinger technique 7.5 Sami triple-lumen was placed. Blood was aspirated from all 3 ports. Will obtain x-ray to confirm placement and rule out pneumothorax. Critical Care Time Critical Care Time: Yes Critical care time (excluding procedures): 30-74 minutes (33), Including time spent: (History, physical, documentation, independent rotation laboratory results, chest x-ray initiation of therapy for DKA. Since there is no obvious source of infection antibiotics were not started as of 135. Her elevated white count may be stress-induced.), Discussing w/Patient &/or Family/Rug Inspector, Discussing w/Consultants, Arranging Admission or Transfer and - (Time excludes time for procedure.) Discharge Plan Triage Chief Complaint: Hyperglycemia ED Provider: Silver Suarez Dx/Rx/DC Orders Clinical Impression: DKA, type 1, Elevated serum creatinine, Acute prerenal azotemia, SIRS (systemic inflammatory response syndrome), Fever Prescriptions: No Action (DME) pen needle, diabetic 31 gauge x 1/4 needle See Rx Instructions .Route Qty: 100 0RF Rx Instructions: As directed cyclobenzaprine 5 mg PO TID PRN PRN (Reason: MUSCLE SPASMS) doxepin 25 mg capsule 25 mg PO QHS 30 Days Qty: 30 0RF quetiapine 200 mg tablet 200 mg PO QHS 30 Days Qty: 30 0RF quetiapine 100 mg tablet 100 mg PO DAILY 30 Days Qty: 30 0RF Rx Instructions: takes in morning buspirone 10 MG tablet 10 mg PO TID 30 Days Qty: 90 0RF hydroxyzine pamoate [Vistaril] 25 mg capsule 50 mg PO TID 30 Days Qty: 180 0RF insulin lispro 100 unit/mL insulin pen See Protocol subcut ACHS 30 Days Qty: 15 0RF Protocol: 5. Sliding Scale Insulin High Dosing Condition: 150-209 mg/dl = 3 units Condition: 210-259 mg/dl = 6 units Condition: 260-324 mg/dl = 9 units Condition: 325-374 mg/dl = 12 units Condition: 375-409 mg/dl = 14 units Condition: 410-449 mg/dl = 16 units Condition: Greater than 449 call physician Protocol Text: Suggested for: - Patients on Total Daily Insulin Dose of 81-120 units - Very insulin resistant patients HIGH DOSING ALGORITHM Rx Instructions: subcutaneously; aripiprazole 5 mg tablet 5 mg PO DAILY 30 Days Qty: 30 0RF insulin glargine [Lantus Solostar U-100 Insulin] 100 unit/mL (3 mL) insulin pen 35 unit subcut BIDCM 30 Days Qty: 15 0RF Linzess 72 mcg capsule 72 mcg PO DAILY 30 Days Qty: 30 0RF gabapentin 300 mg capsule 300 mg PO TID Primary Care Provider: Fely Bose Referrals: Fely Bose MD [Primary Care Provider] - Print Language: Citizen Of [place] Disposition Disposition: Acute Care Hospital [facility]
[2024-04-23] MEDS: 0.9% Normal Saline (1000mL) 1,000 ML 999 ML IV ×4 (12:38→17:17)
[2024-04-23 12:55] LABS: Absolute Lymphocyte Count 0.84 X10^3/uL (0.83-4.51); Absolute Neutrophil Count 18.5 X10^3/uL (2.0-7.7); Basophil# 0.02 X10^3/uL; Basophil% 0.1 % (0-1); Eosinophil# 0.01 X10^3/uL; Hematocrit 45.7 % (37-47); Hemoglobin 14.6 g/dL (12.0-15.0); Lymphocyte # 0.84 X10^3/ul (0.83-4.51); Lymphocyte % 3.6 % (19-41); Mean Corp Hgb Conc 31.9 g/dL (32-36); Mean Corpuscular Hgb 27.7 pg (27.0-32.0); Mean Corpuscular Volume 86.7 fL (81-99); Mean Platelet Vol. 11.1 fl (6.2-12.0); Monocyte# 3.77 X10^3/uL; Monocyte% 16.1 % (0-10); NRBC Flagged by Analyzer 0 % (0-5); Neutrophil # 18.49 X10^3/uL (2.7-7.7); Neutrophil % 78.9 % (47-70); POSITIVE DIFFERENTIAL YES; POSITIVE MORPHOLOGY YES; Platelet Count 156 K/mm3 (150-450); RBC Distribution Width SD 41.2 fl (35.1-43.9); Red Blood Count 5.27 M/mm3 (4.2-5.4); White Blood Count 23.4 K/mm3 (4.4-11.0)
[2024-04-23 12:59] LABS: Differential Indicated SCAN CRITERIA MET
[2024-04-23 13:12] LABS: Base Excess -12 mmol/L (-2 to +2); Bicarbonate 13.5 mmol/L (22-26); Blood Gas Specimen Type ART; Mode Not entered; O2 Delivery Device Not entered; PO2 74 mmHG (75-100); SITE L Brach; SO2 94 % (95-99); Total Carbon Dioxide 14 mmol/L; pCO2 24.3 mmHg (35-45); pH 7.35 (7.35-7.45)
--- NOTE | 2024-04-23 13:12 | RAD_ITS ---
EXAM: XR CHEST, 1 VIEW CLINICAL INDICATION: Dyspnea and tachypnea, leukocytosis TECHNIQUE: Frontal view of the chest. COMPARISON: August 05, 2023 and October 12, 2023 FINDINGS: LUNGS AND PLEURAL SPACES: Unremarkable. No consolidation or edema. No pneumothorax. No effusion. HEART: Unremarkable. Cardiac silhouette not enlarged. MEDIASTINUM: Central airways and mediastinal contour are unremarkable. BONES/JOINTS: Degenerative changes of the spine. No acute fracture. SOFT TISSUES: Unremarkable. RAD/Chest 1 View (Portable) IMPRESSION: No acute disease. Electronically Signed: Chavo Felipe MD at 13:39 EST ,
[2024-04-23 13:23] LABS: Bacteria 0 SEEN /hpf (None Seen); Mucous, Urine 0 SEEN /hpf (<or=2+); Red Blood Cells-Urine 0 SEEN /hpf (0-5)
[2024-04-23 13:34] LABS: Differential Comment SCANNED
[2024-04-23 13:38] LABS: Anion Gap 21 (5-15); BUN 40 mg/dL (7-18); Calcium,Total 9.9 mg/dL (8.5-10.1); Chloride 91 mmol/L (98-107); Creatinine, Serum 1.43 mg/dL (0.55-1.02); EST Glomerular Filtration Rate 41 mL/min (>60); Est Glom Filt Rate - Afr Amer 49 mL/min (>60); Estimated Creatinine Clearance 40.94 ml/min; Glucose 475 mg/dL (74-106); Potassium 3.1 mmol/L (3.5-5.1); Sodium Level 127 mmol/L (136-145)
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
[2024-04-23 14:06] LABS: Color, Urine Yellow (Yellow); Glucose, Dipstick 1000 mg/dl (Normal); Ketone-Dipstick 50 mg/dl (Negative); Leukocyte Esterase-Dipstick 25 /ul (Negative); Nitrite-Dipstick Negative (Negative); Occult Blood-Urine 25 /ul (Negative); Protein-Dipstick 100 mg/dl (Negative); Specific Gravity, Urine 1.015 (1.002-1.030); Urine Bilirubin Dipstick Negative (Negative); Urine Clarity Sl. Cloudy (Clear); Urine Urobilinogen Normal (Normal)
[2024-04-23 14:15] LABS: Squamous Epithelial Cells - UA 0-5 SEEN /hpf (5-10); White Blood Cells 0-5 SEEN /hpf (0-5)
--- NOTE | 2024-04-23 14:55 | RAD_ITS ---
EXAM: XR CHEST, 1 VIEW CLINICAL INDICATION: Right subclavian line placement TECHNIQUE: Frontal view of the chest. COMPARISON: 04/23/24 FINDINGS: LUNGS AND PLEURAL SPACES: Unremarkable. No consolidation or edema. No pneumothorax. No effusion. HEART: Unremarkable. Cardiac silhouette not enlarged. MEDIASTINUM: Central airways and mediastinal contour are unremarkable. BONES/JOINTS: Unremarkable. No acute fracture. SOFT TISSUES: Unremarkable. TUBES, LINES AND DEVICES: New right subclavian central venous catheter with tip in the SVC just above the cavoatrial junction. RAD/Chest 1 View (Portable) IMPRESSION: No acute disease. Electronically Signed: Chavo Felipe MD at 15:37 EST ,
[2024-04-23 14:59] LABS: Phosphorus 2.1 mg/dL (2.5-4.9)
[2024-04-23] MEDS: Ceftriaxone 2 GM in 0.9% Normal Saline (50mL MB+) 50 ML IV (15:07)
[2024-04-23] MEDS: Insulin Lispro 100 UNIT in 0.9% Normal Saline (100mL Bag) 99 ML 6.4 UNIT CONT INF (15:11)
[2024-04-23] MEDS: Acetaminophen 325 MG Tablet 650 MG PO ×2 (15:36→23:08)
[2024-04-23 15:37] LABS: Anion Gap 21 (5-15); BUN 38 mg/dL (7-18); BUN/Creat Ratio 30.4 RATIO (10-20); Calcium,Total 9.3 mg/dL (8.5-10.1); Chloride 93 mmol/L (98-107); Creatinine, Serum 1.25 mg/dL (0.55-1.02); EST Glomerular Filtration Rate 48 mL/min (>60); Est Glom Filt Rate - Afr Amer 58 mL/min (>60); Estimated Creatinine Clearance 46.84 ml/min; Glucose 483 mg/dL (74-106); Potassium 3.4 mmol/L (3.5-5.1); Sodium Level 130 mmol/L (136-145)
[2024-04-23 15:38] LABS: Lactic Acid 2.8 mmol/L (0.4-1.9)
[2024-04-23] MEDS: Azithromycin 500 MG in 0.9% Normal Saline (250mL Bag) 250 ML 255 MG IV (16:09)
[2024-04-23 16:17] LABS: AST(SGOT) 29 U/L (15-37); Alanine Aminotransfer ALT/SGPT 52 U/L (13-56); Albumin, Serum 2.6 g/dL (3.2-5.0); Alkaline Phosphatase 153 U/L (45-117); Bilirubin, Direct 0.43 mg/dL (0.00-0.30); Globulin 3.4 g/dL (2.2-4.2); Magnesium 2.1 mg/dL (1.6-2.6)
[2024-04-23] MEDS: Ondansetron 4 MG/2 ML Vial IV (16:36)
[2024-04-23 16:42] LABS: Anion Gap 13 (5-15); BUN 34 mg/dL (7-18); BUN/Creat Ratio 29.3 RATIO (10-20); Calcium,Total 8.6 mg/dL (8.5-10.1); Chloride 101 mmol/L (98-107); Creatinine, Serum 1.16 mg/dL (0.55-1.02); EST Glomerular Filtration Rate 52 mL/min (>60); Est Glom Filt Rate - Afr Amer 63 mL/min (>60); Estimated Creatinine Clearance 50.47 ml/min; Glucose 388 mg/dL (74-106); Potassium 2.8 mmol/L (3.5-5.1); Sodium Level 132 mmol/L (136-145)
[2024-04-23 17:04] LABS: Procalcitonin 28.73 ng/mL (0.00-0.09)
[2024-04-23] MEDS: Potassium Chloride 10mEq/100mL 10 MEQ/100 ML IV.SOLN. 100 MEQ IV BOLUS ×4 (17:31→20:49)
[2024-04-23 17:40] LABS: Bedside Glucose 338 mg/dL (74-106)
[2024-04-23 18:26] LABS: Bedside Glucose 282 mg/dL (74-106)
[2024-04-23 18:36] LABS: Amphetamine Urine VISTA NEGATIVE (<1000 ng/mL); Barbiturate Urine VISTA NEGATIVE (< 200 ng/mL); Benzodiazepine Urine VISTA NEGATIVE (< 200 ng/mL); Cocaine Urine VISTA NEGATIVE (< 300 ng/mL); Ecstacy Urine VISTA NEGATIVE (< 500 ng/mL); Methadone Urine VISTA NEGATIVE (< 300 ng/mL); PCP Urine VISTA NEGATIVE (< 25 ng/mL); THC Urine VISTA NEGATIVE (< 50 ng/mL); Vista UDS pH Range 5
[2024-04-23] MEDS: 0.9% Normal Saline (1000mL) 1,000 ML 150 ML IV (18:53)
[2024-04-23] MEDS: Piperacil/Tazobactam 3.375 GM in 0.9% Normal Saline (50mL MB+) 50 ML IV (18:53)
[2024-04-23 18:54] LABS: Reflex Lactate? Y
[2024-04-23 19:14] LABS: Bedside Glucose 274 mg/dL (74-106)
[2024-04-23] MEDS: Vancomycin HCl 1,500 MG in 0.9% Normal Saline (500mL Bag) 500 ML 250 MG IV (19:26)
--- NOTE | 2024-04-23 20:08 | PHA.PHARE_ITS ---
Consult Antibiotic Management Pharmacy has been consulted to manage selected antibiotic: Vancomycin Type of Intervention Type of Consult: New start Suspected Infection Suspected Infection: Skin/Soft tissue and Pneumonia Labs Labs: Sodium 132 mmol/L (136-145) L 04/23/24 16:00 Potassium 2.8 mmol/L (3.5-5.1) L 04/23/24 16:00 Chloride 101 mmol/L (98-107) 04/23/24 16:00 Carbon Dioxide 18.0 mmol/L (21.0-32.0) L 04/23/24 16:00 Anion Gap 13 (5-15) 04/23/24 16:00 BUN 34 mg/dL (7-18) H 04/23/24 16:00 Creatinine 1.16 mg/dL (0.55-1.02) H 04/23/24 16:00 Est GFR (MDRD) Af Amer 63 mL/min (>60) 04/23/24 16:00 Est GFR (MDRD) Non-Af 52 mL/min (>60) L 04/23/24 16:00 BUN/Creatinine Ratio 29.3 RATIO (10-20) H 04/23/24 16:00 Glucose 388 mg/dL (74-106) H 04/23/24 16:00 Microbiology Microbiology: Microbiology 04/23/24 16:15 Mucosa - Nasopharyngeal Respiratory Panel (PCR) - Final 04/23/24 16:35 Wound - Nose Skin and Soft Tissue MRSA/MSSA (PCR - Prelim inary Meth. resistant Staph. aureus Staphylococcus aureus 04/23/24 16:35 Urine Catheter - Matos Legionella Antigen - Final 04/23/24 16:35 Urine Catheter - Matos Streptococcus pneumoniae Antigen (M - Final Dosing Weight Weight used for dosin.6 kg Estimated Creatinine Clearance Estimated Creatinine Clearance: 50.47 mL/m Goal Trough Goal Trough: 15-20 mcg/mL Pharmacy Plan for Drug Dosing Pharmacy Plan for Drug Dosing: NEW START IV VANCOMYCIN Consulting Physician: Dr. Rojas Indication: SIRS, SSTI Goal Trough: 15-20 (17.5) SrCr: 1.16 mg/dL CrCl: 50.47 ml/min Comments: Vancomycin Dose: -Loadinmg/2 hours at 1926 04/23/24 -Maintenance: 500mg q12h starting 0730 04/24/2024 Pending Level: 0700 04/25/2024 Pharmacy Service will continue to monitor and adjust dosing as required. Follow-Up Labs Follow-Up Labs: Trough: Vancomycin (@69904/25/2024) Date/Time Labs Ordered Labs to be done on [date and time ordered]: @69904/25/2024
[2024-04-23 20:29] LABS: Bedside Glucose 272 mg/dL (74-106)
[2024-04-23 20:35] LABS: Anion Gap 8 (5-15); BUN 29 mg/dL (7-18); BUN/Creat Ratio 31.2 RATIO (10-20); Calcium,Total 8.3 mg/dL (8.5-10.1); Chloride 106 mmol/L (98-107); Creatinine, Serum 0.93 mg/dL (0.55-1.02); EST Glomerular Filtration Rate 67 mL/min (>60); Est Glom Filt Rate - Afr Amer 81 mL/min (>60); Estimated Creatinine Clearance 62.95 ml/min; Glucose 267 mg/dL (74-106); Potassium 3.3 mmol/L (3.5-5.1); Sodium Level 135 mmol/L (136-145)
[2024-04-23 20:45] LABS: Lactic Acid 1.7 mmol/L (0.4-1.9)
[2024-04-23 21:42] LABS: Bedside Glucose 231 mg/dL (74-106)
[2024-04-23] MEDS: Pantoprazole Sodium 40 MG in 0.9% Normal Saline (100mL MB+) 100 ML 330 MG IV (22:01)
[2024-04-23] MEDS: Sodium Phosphate/Na Biphos 15 MMOL in 0.9% Normal Saline (250mL Bag) 250 ML 125 MMOL IV (22:05)
[2024-04-23 22:29] LABS: Bedside Glucose 233 mg/dL (74-106)
[2024-04-23] MEDS: Insulin Lispro 100 UNIT in 0.9% Normal Saline (100mL Bag) 99 ML CONT INF (23:01)
[2024-04-24] VITALS (27 sets, daily range): BP systolic 83–126; BP diastolic 47–87; PULSE 87–125; RESP 13–33; TEMP 37.5–39.2; O2SAT 94–100; BMI 25.2
[2024-04-24 00:02] LABS: Bedside Glucose 247 mg/dL (74-106)
[2024-04-24 00:25] LABS: Bedside Glucose 264 mg/dL (74-106)
[2024-04-24 00:40] LABS: Anion Gap 7 (5-15); BUN 28 mg/dL (7-18); BUN/Creat Ratio 31.5 RATIO (10-20); Calcium,Total 8.1 mg/dL (8.5-10.1); Chloride 109 mmol/L (98-107); Creatinine, Serum 0.89 mg/dL (0.55-1.02); EST Glomerular Filtration Rate 70 mL/min (>60); Est Glom Filt Rate - Afr Amer 85 mL/min (>60); Estimated Creatinine Clearance 65.78 ml/min; Glucose 289 mg/dL (74-106); Potassium 2.9 mmol/L (3.5-5.1); Sodium Level 137 mmol/L (136-145)
--- NOTE | 2024-04-24 00:42 | PCM.HOSP.N ---
Hospitalist Note Patient admitted on the afternoon of 04/23 for DKA and concern for sepsis with unclear source. Anion gap resolved and bicarb 21 on labs by the evening of 04/23. However, patient remained febrile to 103-104F and was somewhat confused, and she had difficulty taking medications. Decision was made to keep patient on insulin drip and keep her n.p.o. status until speech therapy can see her tomorrow. Patient notably is on vancomycin and Zosyn for sepsis of unclear origin.
[2024-04-24 01:19] LABS: Bedside Glucose 285 mg/dL (74-106)
[2024-04-24] MEDS: Cefepime HCl 2 GM in 0.9% Normal Saline (100mL MB+) 100 ML IV ×2 (02:12→14:40)
[2024-04-24 02:31] LABS: Bedside Glucose 246 mg/dL (74-106)
[2024-04-24] MEDS: Potassium Chloride 20mEq/100mL 20 MEQ/100 ML IV.SOLN. 100 MEQ IV BOLUS ×2 (02:45→03:39)
[2024-04-24 03:18] LABS: Bedside Glucose 227 mg/dL (74-106)
[2024-04-24] MEDS: Acetaminophen 325 MG Tablet 650 MG PO ×4 (03:35→18:45)
[2024-04-24 04:19] LABS: Bedside Glucose 237 mg/dL (74-106)
[2024-04-24] MEDS: Albuterol 2.5 MG/3 ML VIAL.NEB. INHALATION (04:44)
[2024-04-24 04:46] LABS: Absolute Lymphocyte Count 0.65 X10^3/uL (0.83-4.51); Absolute Neutrophil Count 12.6 X10^3/uL (2.0-7.7); Basophil# 0.01 X10^3/uL; Basophil% 0.1 % (0-1); Hematocrit 36.9 % (37-47); Hemoglobin 12.8 g/dL (12.0-15.0); Lymphocyte # 0.65 X10^3/ul (0.83-4.51); Lymphocyte % 4.3 % (19-41); Mean Corp Hgb Conc 34.7 g/dL (32-36); Mean Corpuscular Hgb 27.9 pg (27.0-32.0); Mean Corpuscular Volume 80.6 fL (81-99); Mean Platelet Vol. 10.9 fl (6.2-12.0); Monocyte# 1.63 X10^3/uL; Monocyte% 10.9 % (0-10); NRBC Flagged by Analyzer 0 % (0-5); Neutrophil # 12.58 X10^3/uL (2.7-7.7); Neutrophil % 83.8 % (47-70); POSITIVE DIFFERENTIAL YES; POSITIVE MORPHOLOGY YES; Platelet Count 122 K/mm3 (150-450); RBC Distribution Width CV 12.7 % (11.6-14.6); RBC Distribution Width SD 36.9 fl (35.1-43.9); Red Blood Count 4.58 M/mm3 (4.2-5.4)
[2024-04-24 04:52] LABS: Differential Indicated SCAN CRITERIA MET
[2024-04-24 05:01] LABS: ALB/GLOB Ratio 0.6 RATIO (0.9-2.4); AST(SGOT) 29 U/L (15-37); Alanine Aminotransfer ALT/SGPT 36 U/L (13-56); Albumin, Serum 1.9 g/dL (3.2-5.0); Alkaline Phosphatase 108 U/L (45-117); Anion Gap 5 (5-15); BUN 26 mg/dL (7-18); Calcium,Total 8.5 mg/dL (8.5-10.1); Chloride 111 mmol/L (98-107); Creatinine, Serum 0.68 mg/dL (0.55-1.02); EST Glomerular Filtration Rate 95 mL/min (>60); Est Glom Filt Rate - Afr Amer 115 mL/min (>60); Estimated Creatinine Clearance 86.09 ml/min; Globulin 3.4 g/dL (2.2-4.2); Glucose 263 mg/dL (74-106); Magnesium 1.9 mg/dL (1.6-2.6); Potassium 3.6 mmol/L (3.5-5.1); Protein, Total 5.3 g/dL (6.4-8.2); Sodium Level 138 mmol/L (136-145)
[2024-04-24] MEDS: busPIRone 5 MG Tablet 10 MG PO ×3 (05:03→20:09)
[2024-04-24] MEDS: hydrOXYzine PAM 25 MG Capsule 50 MG PO (05:03)
[2024-04-24 05:26] LABS: Bedside Glucose 199 mg/dL (74-106)
[2024-04-24] MEDS: Potassium Phosphate 40 MM in 0.9% Normal Saline (500mL Bag) 500 ML 62.5 MM IV (05:41)
[2024-04-24 05:45] LABS: Differential Comment SCANNED; Platelet Estimate ADEQUATE (ADEQ)
--- NOTE | 2024-04-24 05:45 | RAD_ITS ---
STUDY: X-RAY CHEST REASON FOR EXAM: Female, 53 years old. Dyspnea, cough . Fever. TECHNIQUE: Single AP portable view of the chest. COMPARISON: Comparison is made with prior study dated April 23, 2024. FINDINGS: A right-sided central catheter seen with the tip at the junction of the superior vena cava and right atrium. EKG electrodes are seen. The lungs are clear and expanded. There is no demonstrated pleural abnormality. Normal size heart. Normal mediastinum and rosibel. Normal visualized pulmonary arteries. Normal visualized aortic arch and descending thoracic aorta. There are diffuse degenerative changes of the visualized thoracic spine. There is degenerative osteoarthritis of the bilateral shoulders. There is no demonstrated abnormality of the visualized soft tissue structures of the upper abdomen. RAD/Chest 1 View (Portable) IMPRESSION: No acute abnormality is seen. Electronically Signed: Elian Johnson MD at 8:12 EST ,
[2024-04-24 05:59] LABS: Hemoglobin A1c 11.7 % (3.8-5.6)
--- NOTE | 2024-04-24 07:14 | PN.HOSP_ITS ---
Reason for Visit Reason for Visit: Diagnoses Type 1 diabetes mellitus with ketoacidosis without coma (04/23/24) Acute kidney failure, unspecified (04/23/24) Systemic inflammatory response syndrome (SIRS) of non-infectious origin without acute organ dysfunction (04/23/24) Subjective Subjective Patient resting in bed, reports she feels she may have a kidney infection because of some left flank pain and has a little bit of a cough but otherwise did not voice any specific complaints Objective Data Objective Data Vital Signs: Vital Signs Temp Pulse Resp BP Pulse Ox O2 Del Method 102.3 F H 122 H 26 H 113/50 L 96 Room Air 04/24/24 07:00 04/24/24 07:00 04/24/24 07:00 04/24/24 07:00 04/24/24 07:00 04/24/24 07:00 Oxygen Delivery Method Room Air Weight: 68.7 kg Body Mass Index (BMI) 25.2 Intake & Output: Intake and Output for Last 24 Hours 04/22/24 04/23/24 04/24/24 23:59 23:59 23:59 Intake Total 5910.20 / 5912.36 579.58 / 579.58 Output Total 2350 / 2350 300 / 300 Balance 3560.20 / 3562.36 279.58 / 279.58 Lab / Micro Data 04/24/24 04:36 04/24/24 12:20 Labs: Laboratory Results - last 24 hr 04/23/24 12:45: WBC 23.4 H, RBC 5.27, Hgb 14.6, Hct 45.7, MCV 86.7, MCH 27.7, M CHC 31.9 L, RDW Std Deviation 41.2, RDW Coeff of Cele 13.0, Plt Count 156, MPV 11.1, Immature Gran % (Auto) 1.300 H, Neut % (Auto) 78.9 H, Lymph % (Auto) 3.6 L , Callahan % (Auto) 16.1 H, Eos % (Auto) 0.0, Baso % (Auto) 0.1, Absolute Neuts (auto) 18.5 H, Absolute Lymphs (auto) 0.84, Nucleated RBC % 0, Differential Comment SCANNED, Diff Path Review May , Sodium 127 L, Potassium 3.1 L, C hloride 91 L, Carbon Dioxide 14.0 L, Anion Gap 21 H, BUN 40 H, Creatinine 1.43 H , Estim Creat Clear Calc 40.94, Est GFR (MDRD) Af Amer 49 L, Est GFR (MDRD) Non- Af 41 L, BUN/Creatinine Ratio 28.0 H, Glucose 475 H*, Calcium 9.9, Procalcitonin 28.73 H, Acetone Level MODERATE H 04/23/24 13:13: Urine Color Yellow, Urine Clarity Sl. Cloudy, Urine pH 6.0, Ur Specific [place] 1.015, Urine Protein 100 H, Urine Glucose (UA) 1000 H, Urine Ketones 50 H, Urine Occult Blood 25 H, Urine Nitrite Negative, Urine Bilirubin Negative, Urine Urobilinogen Normal, Ur Leukocyte Esterase 25 H, Urine RBC 0 SEEN, Urine WBC 0-5 SEEN, Ur Squamous Epith Cells 0-5 SEEN, Urine Bacteria 0 SEEN, Urine Mucus 0 SEEN, Urine Opiates Screen NEGATIVE, Urine Methadone Screen NEGATIVE, Ur Barbiturates Screen NEGATIVE, Ur Phencyclidine Scrn NEGATIVE, Ur Amphetamines Screen NEGATIVE, MDMA (Ecstasy) Screen NEGATIVE, U Benzodiazepines Scrn NEGATIVE, Urine Cocaine Screen NEGATIVE, U Cannabinoids Screen NEGATIVE, Ur Drug Screen Comment 04/23/24 13:25: Lactic Acid 2.8 H* 04/23/24 14:15: Sodium 130 L, Potassium 3.4 L, Chloride 93 L, Carbon Dioxide 16.0 L, Anion Gap 21 H, BUN 38 H, Creatinine 1.25 H, Estim Creat Clear Calc 46.84, Est GFR (MDRD) Af Amer 58 L, Est GFR (MDRD) Non-Af 48 L, BUN/Creatinine Ratio 30.4 H, Glucose 483 H*, Calcium 9.3, Phosphorus 2.1 L, Magnesium 2.1, Total Bilirubin 0.80, Direct Bilirubin 0.43 H, AST 29, ALT 52, Alkaline Phosphatase 153 H, Total Protein 6.0 L, Albumin 2.6 L, Globulin 3.4 04/23/24 16:00: Sodium 132 L, Potassium 2.8 L, Chloride 101, Carbon Dioxide 18.0 L, Anion Gap 13, BUN 34 H, Creatinine 1.16 H, Estim Creat Clear Calc 50.47, Est GFR (MDRD) Af Amer 63, Est GFR (MDRD) Non-Af 52 L, BUN/Creatinine Ratio 29.3 H, Glucose 388 H, Calcium 8.6 04/23/24 17:14: POC Glucose 338 H 04/23/24 18:05: POC Glucose 282 H 04/23/24 18:51: POC Glucose 274 H 04/23/24 20:05: Sodium 135 L, Potassium 3.3 L, Chloride 106, Carbon Dioxide 21.0, Anion Gap 8, BUN 29 H, Creatinine 0.93, Estim Creat Clear Calc 62.95, Est GFR (MDRD) Af Amer 81, Est GFR (MDRD) Non-Af 67, BUN/Creatinine Ratio 31.2 H, G lucose 267 H, Lactic Acid 1.7, Calcium 8.3 L 04/23/24 20:11: POC Glucose 272 H 04/23/24 21:18: POC Glucose 231 H 04/23/24 22:01: POC Glucose 233 H 04/23/24 23:10: POC Glucose 247 H 04/24/24 00:02: POC Glucose 264 H 04/24/24 00:13: Sodium 137, Potassium 2.9 L, Chloride 109 H, Carbon Dioxide 21.0, Anion Gap 7, BUN 28 H, Creatinine 0.89, Estim Creat Clear Calc 65.78, Est GFR (MDRD) Af Amer 85, Est GFR (MDRD) Non-Af 70, BUN/Creatinine Ratio 31.5 H, G lucose 289 H, Calcium 8.1 L 04/24/24 01:01: POC Glucose 285 H 04/24/24 02:05: POC Glucose 246 H 04/24/24 02:59: POC Glucose 227 H 04/24/24 03:58: POC Glucose 237 H 04/24/24 04:36: WBC 15.0 H, RBC 4.58, Hgb 12.8, Hct 36.9 L, MCV 80.6 L D, MCH 27.9, MCHC 34.7 D, RDW Std Deviation 36.9, RDW Coeff of Cele 12.7, Plt Count 122 L, MPV 10.9, Immature Gran % (Auto) 0.900, Neut % (Auto) 83.8 H, Lymph % (Auto) 4.3 L, Callahan % (Auto) 10.9 H, Eos % (Auto) 0.0, Baso % (Auto) 0.1, Absolute Neuts (auto) 12.6 H, Absolute Lymphs (auto) 0.65 L, Nucleated RBC % 0, Differential Comment SCANNED, Diff Path Review May foll, Platelet Estimate ADEQUATE, Sodium 138, Potassium 3.6, Chloride 111 H, Carbon Dioxide 22.0, Anion Gap 5, BUN 26 H, Creatinine 0.68, Estim Creat Clear Calc 86.09, Est GFR (MDRD) Af Amer 115, Est GFR (MDRD) Non-Af 95, BUN/Creatinine Ratio 38.0 H, Glucose 263 H, Hemoglobin A1c 11.7 H, Calcium 8.5, Phosphorus 1.0 L*, Magnesium 1.9, Total Bilirubin 0.50, AST 29, ALT 36, Alkaline Phosphatase 108, Total Protein 5.3 L, Albumin 1.9 L, Globulin 3.4, Albumin/Globulin Ratio 0.6 L 04/24/24 05:00: POC Glucose 199 H Micro: Microbiology 04/23/24 15:00 Blood Culture (Wb) - Other Blood Culture - Preliminary 04/23/24 14:15 Blood Culture (Wb) - Left Hand Blood Culture - Preliminary 04/23/24 16:15 Mucosa - Nasopharyngeal Respiratory Panel (PCR) - Final 04/23/24 16:35 Wound - Nose Skin and Soft Tissue MRSA/MSSA (PCR - Preliminary Meth. resistant Staph. aureus Staphylococcus aureus 04/23/24 16:35 Urine Catheter - Matos Legionella Antigen - Final 04/23/24 16:35 Urine Catheter - Matos Streptococcus pneumoniae Antigen (M - Final ABG Data ABG results: ABG 04/23/24 13:08 Specimen Type ART Sample Site L Brach pH 7.35 Bicarbonate Actual 13.5 L Total CO2 14 Base Excess -12 L O2 Saturation 94 L ABG pCO2 24.3 L ABG pO2 74 L O2 Delivery Device Not entered Vent Mode Not entered Radiography Diagnostic Testing: Radiology Impression Chest X-Ray 04/23/24 13:12 IMPRESSION: No acute disease. Electronically Signed: Chavo Felipe MD at 13:39 EST , Chest X-Ray 04/23/24 14:55 IMPRESSION: No acute disease. Electronically Signed: Chavo Feilpe MD at 15:37 EST , Physical Exam Narrative General: Appears tired but is awake and answering questions HEENT: Atraumatic, normocephalic Eyes: Anicteric, normal conjunctiva, extraocular movements grossly intact Neck: Supple Respiratory: Somewhat diminished bilaterally, slightly tachypneic but no overt increased work of breathing Cardiovascular: Low-grade sinus tachycardia GI: Soft, no rebound, guarding, rigidity Extremities: No significant pitting edema Musculoskeletal: Moving all extremities Neuro: No overt focal neurological deficits Skin: No rashes appreciated Psych: Cooperative Assessment & Plan Assessment/Plan (1) DKA, type 1: PLAN: Plan # Multifocal left-sided pyelonephritis with gram-negative leanne bacteremia -Tmax of 104 overnight with patient tachypneic and tachycardic -White blood cell count 23 on presentation with broad-spectrum antibiotics as 15 -Additionally Pro-Zach greater than 20 -UA unremarkable -Chest x-ray did not report any acute disease -Urine antigens negative -Base respiratory panel negative -Currently 2 out of 2 blood cultures with gram-negative rods (initially reported out as gram positive rods but has been changed) -Continue broad-spectrum antibiotics at this time -Patient does reportedly have a substance use history and well currently reporting no use will obtain echocardiogram given unclear source to assess for any vegetations -Additionally given patient's complaints only being mild cough and some left- sided flank pain she had a CT of chest abdomen and pelvis with contrast which showed multifocal pyelonephritis, awaiting cultures # Right-sided pneumothorax -Patient was slightly tachypneic and slightly tachycardic however she was febrile which would have accounted for both of these things and was not reporting any overt shortness of breath -Earlier chest x-rays had not called pneumothorax however CT of the chest/abdomen/pelvis obtained for finding source of infection revealed right- sided pneumothorax -Pulm and surgery contacted and patient had chest tube placed #DKA in setting of chronic type 1 diabetes, DKA now resolved -Serum glucose in ED 475, anion gap 21 -Urine ketones 50 -Serum acetone moderate -Admit to intensive care unit -Patient made n.p.o. and started on insulin drip -Aggressive fluid hydration -Glucose checks and DKA protocol -Trend BMP -A1c 11.7 -Presently gap is closed and appears patient is out of DKA. Of note patient reports that her insulin was taken by her ex- and that is why she was out of it and came in DKA -Patient transition to long-acting and sliding scale, tolerating p.o. # KASSY -On admission creatinine 1.43 with a baseline around 0.5-0.7 -Today creatinine 0.68, improved with IV fluids # COPD -Continue budesonide therapy and as needed albuterol #GERD -Continue PPI #Depression/anxiety, ? History of bipolar disorder -Continue home medications though it is unclear exactly what those are as patient's fill history and current medication list are not necessarily concurrent -Do not see where she has recently filled hydroxyzine so we will discontinue this as it may be contributing to her increased lethargy #DVT ppx: Lovenox subcu Kandace Arias MD Time spent in the patient's overall evaluation, decision-making process, review of diagnostic data, adjustment of management, discussion with other providers, nursing and ancillary staff involved in patient's care documentation, 70 Minutes Charges/Coding Visit Charges Inpatient E&M: 58267 [facility] Hosp L3
[2024-04-24 07:16] LABS: Bedside Glucose 205 mg/dL (74-106)
--- NOTE | 2024-04-24 07:32 | ECHOD_ITS ---
Reason For Study: OTHER Procedure This was a 2D Doppler, Color Flow transthoracic echocardiogram. Exam performed portable in ICU/CCU. Left Ventricle Normal LV size. The estimated ejection fraction is 60 %. No evidence for diastolic dysfunction. No regional wall motion abnormalities noted. Right Ventricle Severely dilated right ventricle. Moderate global right ventricular systolic dysfunction. Atria The left and right atria are normal. No doppler evidence for ASD. Mitral Valve There is no mitral valve stenosis. No mitral valve insufficiency. Tricuspid Valve There is no tricuspid stenosis. Trivial tricuspid valve insufficiency. Pulmonary artery systolic pressure is 40 mmHg. Aortic Valve Aortic sclerosis, no stenosis. No aortic valve insufficiency. Pulmonic Valve There is no pulmonic valvular stenosis. No pulmonic valve insufficiency. Great Vessels Normal aortic root. Pericardium/Pleural No pericardial effusion. MMode/2D Measurements & Calculations LVIDd: 3.8 cm IVSd: 1.1 cm LAV(MOD-sp4): 34.9 ml LVIDs: 2.6 cm LVPWd: 1.1 cm FS: 31.8 % LVAd ap4: 19.7 cm2 SV(MOD-sp4): 28.9 ml SV(sp4-el): 32.1 ml LVLd ap4: 6.8 cm SI(MOD-sp4): 16.5 ml/m2 EDV(MOD-sp4): 47.0 ml EDV(sp4-el): 48.6 ml LVAs ap4: 11.0 cm2 LVLs ap4: 6.2 cm ESV(MOD-sp4): 18.0 ml ESV(sp4-el): 16.5 ml EF(MOD-sp4): 61.6 % EF(sp4-el): 66.0 % LA A4 area: 14.1 cm2 LA dimension(2D): 3.8 cm RA A4 area: 13.4 cm2 TAPSE: 1.5 cm Time Measurements MV dec time: 0.14 sec Doppler Measurements & Calculations MV E max juan francisco: 43.6 cm/sec Lat Peak E' Juan [place]: 15.7 cm/sec Med Peak E' [place]: 8.7 cm/sec MV A max juan francisco: 59.8 cm/sec E/E' lat: 2.8 E/E' med: 5.0 MV E/A: 0.73 MV V2 max: 79.8 cm/sec MV dec slope: 305.0 cm/sec2 Ao V2 max: 115.3 cm/sec MV max P.6 mmHg Ao max P.3 mmHg MV V2 mean: 59.6 cm/sec Ao V2 mean: 85.9 cm/sec MV mean P.6 mmHg Ao mean P.3 mmHg MV V2 VTI: 14.1 cm Ao V2 VTI: 16.6 cm AV (velocity ratio): 0.60 LV V1 max: 81.1 cm/sec PA V2 max: 94.8 cm/sec TR max juan francisco: 298.5 cm/sec LV V1 max P.6 mmHg PA V2 mean: 68.4 cm/sec TR max P.7 mmHg LV V1 mean P.4 mmHg LV V1 mean: 54.9 cm/sec LV V1 VTI: 10.0 cm ECHO/Echo Complete Interpretation Summary The estimated ejection fraction is 60 %. No evidence for diastolic dysfunction. Severely dilated right ventricle. Moderate global right ventricular systolic dysfunction. Ordering Physician: Kandace Arias Referring Physician: MATHEW BILL Performed By: Sophie Alexandre RCS
[2024-04-24] MEDS: Budesonide Respules 0.5 MG/2 ML AMPUL.NEB. INHALATION (07:37)
[2024-04-24] MEDS: Vancomycin HCl 1,250 MG in 0.9% Normal Saline (250mL Bag) 250 ML 167 MG IV ×2 (08:15→20:08)
--- NOTE | 2024-04-24 09:02 | CT_ITS ---
STUDY: CT CHEST, ABDOMEN T PELVIS WITH CONTRAST REASON FOR EXAM: Female, 53 years old. Bacteremia and high fever unknown origin. SEE PYELO ON LEFT KIDNEY RADIATION DOSAGE (If Supplied By Facility): CTDIvol = ( 15.67 ) mGy, DLP = ( 2420.26 ) mGycm TECHNIQUE: Transaxial imaging was performed following intravenous administration of IV 100mL Isovue-370. Multiplanar coronal and sagittal images were reformatted. Individualized dose optimization techniques were used for this CT. COMPARISON: No relevant priors. FINDINGS: CHEST A right-sided central catheter is seen with the tip in the superior vena cava.. 10% right pneumothorax. Mild increased markings at the lung bases suggestive of a atelectasis and/or scarring. Normal heart and pericardium. Normal mediastinum. Normal hilar regions. Normal unenhanced pulmonary arteries. Normal aorta arch and descending thoracic aorta. Normal osseous structures. Hepatomegaly. Fatty infiltration of the liver. ABDOMEN There is decreased attenuation of the liver consistent with steatosis. Hepatomegaly. The gallbladder is contracted. Normal spleen. Normal pancreas. Normal bilateral adrenal glands. Surgical clips are seen in the region of the right adrenal gland. Small cysts are seen in the right kidney. Heterogeneous enlargement and enhancement of the left kidney suggestive of a multifocal pyelonephritis. Small cysts are seen in the left kidney. Bilateral perinephric stranding. Normal visualized stomach. Normal small intestine. There are colonic diverticula consistent with diverticulosis. The appendix is visualized and appears normal. Normal abdominal aorta. Normal inferior vena cava. There is borderline retroperitoneal lymphadenopathy with enlarged nodes no greater than 10mm in the short axis diameter. There is a left-sided inguinal hernia containing adipose tissue. There are degenerative changes of the visualized lumbar spine. PELVIS A Matos catheter seen within the decompressed urinary bladder. Small amount of fluid is seen in the cul-de-sac. Normal visualized pelvic arteries. CT/CT Chest, Abd, Pel w/Contrast IMPRESSION: Comparison right pneumothorax. Enlargement of both kidneys with heterogeneous enhancement bilaterally worse on the left side. Multifocal pyelonephritis should BE ruled out. Electronically Signed: Elian Johnson MD at 12:35 EST ,
[2024-04-24] MEDS: Insulin Glargine-YFGN 100 UNIT/ML Pen 30 UNIT SC (09:31)
[2024-04-24] MEDS: 0.9% Normal Saline (1000mL) 1,000 ML 100 ML IV ×2 (09:37→20:08)
[2024-04-24 09:49] LABS: Bedside Glucose 214 mg/dL (74-106)
[2024-04-24] MEDS: ARIPiprazole 5 MG Tablet PO (09:53)
[2024-04-24] MEDS: Nystatin Powder 15gm Bottle 1 APPLIC TOPICAL ×3 (09:54→20:11)
[2024-04-24] MEDS: Enoxaparin 40 MG/0.4 ML Syringe SC (09:54)
[2024-04-24] MEDS: oxyCODONE 5 MG Tablet 2.5 MG PO ×2 (10:01→20:14)
[2024-04-24] MEDS: Pantoprazole Sodium 40 MG in 0.9% Normal Saline (100mL MB+) 100 ML 330 MG IV ×2 (11:20→21:18)
[2024-04-24] MEDS: 0.9 % NaCl (Sterile) Posiflush 10 mL IV (11:21)
[2024-04-24 12:06] LABS: Bedside Glucose 214 mg/dL (74-106)
[2024-04-24] MEDS: Magnesium Sulfate 2 GM in Dextrose 5%-Water (100mL Bag) 100 ML IV (12:14)
[2024-04-24] MEDS: Lidocaine 1% (20 ml mdv) 20 ML Vial 10 ML SC (12:30)
[2024-04-24 12:39] LABS: Anion Gap 6 (5-15); BUN 24 mg/dL (7-18); BUN/Creat Ratio 41.2 RATIO (10-20); Chloride 109 mmol/L (98-107); Creatinine, Serum 0.58 mg/dL (0.55-1.02); EST Glomerular Filtration Rate 115 mL/min (>60); Est Glom Filt Rate - Afr Amer 139 mL/min (>60); Estimated Creatinine Clearance 109.23 ml/min; Glucose 289 mg/dL (74-106); Potassium 3.7 mmol/L (3.5-5.1); Sodium Level 135 mmol/L (136-145)
--- NOTE | 2024-04-24 12:50 | CASEMGMT ---
Insurance review for hospitals In-network withSom Dual insurance if transfer is recommended is as follows: [facility], [facility], [facility], [facility], [facility], [facility]), and . Yenny Bustillo, Discharge Planning Asst.
--- NOTE | 2024-04-24 12:54 | RAD_ITS ---
STUDY: X-RAY CHEST REASON FOR EXAM: Female, 53 years old. Chest tube placement TECHNIQUE: Single AP portable view of the chest. COMPARISON: Comparison is made with prior study done earlier today. FINDINGS: Right-sided small caliber chest tube has been placed with the tip in the lateral aspect of the right hemithorax. Residual 5% right apical pneumothorax. RAD/Chest 1 View (Portable) IMPRESSION: Small caliber right-sided chest tube has been placed with the decreased size of the right pneumothorax at 5%. Electronically Signed: Elian Johnson MD at 13:24 EST ,
--- NOTE | 2024-04-24 12:55 | PCM.OP.PRO2 ---
Procedures Hospitalists Procedures: 70522 Insertion of Chest Tube Non-invasive Procedural Procedure Information Date of Procedure: 04/24/24 Description of procedure: Chest Tube Placement Indication: Iatrogenic pneumothorax Consent was obtained from the patient The procedure was performed at the bedside with the assistance of Dr. Leija of general surgery. The patient's chest imaging was reviewed prior to the procedure. The appropriate side and site was palpated and marked. The patient was prepped and draped in a sterile manner using chlorhexidine scrub after the patient was positioned in the usual fashion. A total of 20 mL of 1% lidocaine was used to anesthetize the skin and subcutaneous tissue. A small incision was made parallel to the rib in the midaxillary line. A 16 cm 8 Portuguese pneumothorax catheter was then inserted without complication. The catheter was sutured to the skin at the insertion site and connected securely to a Pleur-evac. An OpSite occlusive dressing was placed over the insertion site. No immediate complications were noted. Postprocedure chest x-ray is currently pending.
[2024-04-24 13:03] LABS: Albumin, Serum 1.9 g/dL (3.2-5.0); Phosphorus 2.1 mg/dL (2.5-4.9)
--- NOTE | 2024-04-24 15:02 | CASEMGMT ---
Social Work Multiple attempts throughout the day to meet with pt and complete assessment. Pt extremely drowsy, and although trying to converse with this SW pt is unable at this time. SW will revisit pt tomorrow to assess. EDWARD Kraus
[2024-04-24] MEDS: Insulin Lispro 100 UNIT/ML INSULN.PEN SC ×2 (16:29→20:15)
[2024-04-24 16:33] LABS: Bedside Glucose 321 mg/dL (74-106)
[2024-04-24] MEDS: Sodium Phosphate/Na Biphos 21 MMOL in 0.9% Normal Saline (250mL Bag) 250 ML 84 MMOL IV (18:05)
[2024-04-24] MEDS: QUEtiapine 100 MG Tablet 200 MG PO (20:09)
[2024-04-24] MEDS: Doxepin Hcl 25 MG Capsule PO (20:09)
[2024-04-24] MEDS: MELATONIN 3 MG TABLET PO (20:14)
[2024-04-24] MEDS: Insulin Glargine-YFGN 100 UNIT/ML Pen 35 UNIT SC (20:15)
[2024-04-24 20:39] LABS: Bedside Glucose 286 mg/dL (74-106)
[2024-04-24] MEDS: Piperacil/Tazobactam 3.375 GM in 0.9% Normal Saline (50mL MB+) 50 ML IV (22:01)
[2024-04-25] VITALS (33 sets, daily range): BP systolic 81–137; BP diastolic 44–71; PULSE 98–125; RESP 12–28; TEMP 35.6–39.1; O2SAT 96–100; BMI 27.7
[2024-04-25 04:17] LABS: Absolute Lymphocyte Count 0.45 X10^3/uL (0.83-4.51); Absolute Neutrophil Count 9.6 X10^3/uL (2.0-7.7); Basophil# 0.02 X10^3/uL; Basophil% 0.2 % (0-1); Eosinophil# 0.02 X10^3/uL; Eosinophils% 0.2 % (0-5); Hemoglobin 11.4 g/dL (12.0-15.0); Lymphocyte # 0.45 X10^3/ul (0.83-4.51); Lymphocyte % 3.8 % (19-41); Mean Corp Hgb Conc 34.5 g/dL (32-36); Mean Corpuscular Hgb 27.7 pg (27.0-32.0); Mean Corpuscular Volume 80.3 fL (81-99); Mean Platelet Vol. 11.3 fl (6.2-12.0); Monocyte# 1.36 X10^3/uL; Monocyte% 11.6 % (0-10); NRBC Flagged by Analyzer 0 % (0-5); Neutrophil # 9.63 X10^3/uL (2.7-7.7); Neutrophil % 81.7 % (47-70); POSITIVE COUNT YES; POSITIVE DIFFERENTIAL YES; POSITIVE MORPHOLOGY YES; Platelet Count 82 K/mm3 (150-450); RBC Distribution Width CV 13.1 % (11.6-14.6); RBC Distribution Width SD 38.2 fl (35.1-43.9); Red Blood Count 4.11 M/mm3 (4.2-5.4); White Blood Count 11.8 K/mm3 (4.4-11.0)
[2024-04-25 04:20] LABS: Differential Indicated SCAN CRITERIA MET
[2024-04-25 04:32] LABS: Anion Gap 7 (5-15); BUN 21 mg/dL (7-18); BUN/Creat Ratio 42.1 RATIO (10-20); Calcium,Total 7.8 mg/dL (8.5-10.1); Chloride 113 mmol/L (98-107); EST Glomerular Filtration Rate 137 mL/min (>60); Est Glom Filt Rate - Afr Amer 166 mL/min (>60); Glucose 244 mg/dL (74-106); Magnesium 2.1 mg/dL (1.6-2.6); Phosphorus 1.2 mg/dL (2.5-4.9); Sodium Level 138 mmol/L (136-145)
[2024-04-25 04:58] LABS: Differential Comment SCANNED
[2024-04-25] MEDS: Na Biphos/Potassium Phosphate PACKET 1 PACKET PO ×4 (05:25→16:55)
[2024-04-25] MEDS: Potassium Chloride Oral Tablet 20 MEQ 40 MEQ PO (05:25)
[2024-04-25] MEDS: Acetaminophen 325 MG Tablet 650 MG PO ×3 (05:25→20:32)
[2024-04-25] MEDS: Piperacil/Tazobactam 3.375 GM in 0.9% Normal Saline (50mL MB+) 50 ML IV ×3 (05:26→21:28)
[2024-04-25] MEDS: busPIRone 5 MG Tablet 10 MG PO ×3 (05:26→20:34)
[2024-04-25] MEDS: Nystatin Powder 15gm Bottle 1 APPLIC TOPICAL ×3 (05:26→20:34)
--- NOTE | 2024-04-25 05:35 | RAD_ITS ---
INDICATION: pneumothorax EXAMINATION/TECHNIQUE: X-RAY - XR Chest 1 View COMPARISON: April 24, 2024 FINDINGS: LINES/DEVICES: Right venous line with tip at the proximal SVC. LUNGS: No consolidation, edema or effusion. No pneumothorax. MEDIASTINUM AND CARDIOVASCULAR STRUCTURES: Cardiac silhouette not enlarged. Central airways and mediastinal contour are unremarkable. BONES AND SOFT TISSUES: Unremarkable. RAD/Chest 1 View (Portable) IMPRESSION: No radiographic evidence of acute cardiopulmonary disease. Electronically Signed: Solomon Bach DO at 9:57 EST ,
[2024-04-25 06:29] LABS: Vancomycin, Trough Level 16.2 ug/mL (5.0-15.0)
--- NOTE | 2024-04-25 06:40 | PCM.RX.CS ---
Consult Antibiotic Management Pharmacy has been consulted to manage selected antibiotic: Vancomycin Type of Intervention Type of Consult: Follow-up Labs Labs: Sodium 138 mmol/L (136-145) 04/25/24 04:07 Potassium 3.0 mmol/L (3.5-5.1) L 04/25/24 04:07 Chloride 113 mmol/L (98-107) H 04/25/24 04:07 Carbon Dioxide 19.0 mmol/L (21.0-32.0) L 04/25/24 04:07 Anion Gap 7 (5-15) 04/25/24 04:07 BUN 21 mg/dL (7-18) H 04/25/24 04:07 Creatinine 0.50 mg/dL (0.55-1.02) L 04/25/24 04:07 Est GFR (MDRD) Af Amer 166 mL/min (>60) 04/25/24 04:07 Est GFR (MDRD) Non-Af 137 mL/min (>60) 04/25/24 04:07 BUN/Creatinine Ratio 42.1 RATIO (10-20) H 04/25/24 04:07 Glucose 244 mg/dL (74-106) H 04/25/24 04:07 Vancomycin Trough 16.2 ug/mL (5.0-15.0) H 04/25/24 06:05 Microbiology Microbiology: Microbiology 04/23/24 15:00 Blood Culture (Wb) - Central Line Blood Culture - Preliminary 04/23/24 16:35 Wound - Nose Skin and Soft Tissue MRSA/MSSA (PCR - Final Meth. resistant Staph. aureus 04/23/24 14:15 Blood Culture (Wb) - Left Hand Blood Culture - Preliminary 04/23/24 16:15 Mucosa - Nasopharyngeal Respiratory Panel (PCR) - Final 04/23/24 16:35 Urine Catheter - Matos Legionella Antigen - Final 04/23/24 16:35 Urine Catheter - Matos Streptococcus pneumoniae Antigen (M - Final Goal Trough Goal Trough: 15-20 mcg/mL Pharmacy Plan for Drug Dosing Pharmacy Plan for Drug Dosing: Pharmacy Service will continue to monitor and adjust dosing as required. TROUGH 16.2 @ 10 HOURS. NO CHANGES, FOLLOW UP TROUGH IN 2 DAYS Follow-Up Labs Follow-Up Labs: Trough: Vancomycin Date/Time Labs Ordered Labs to be done on [date and time ordered]: 04/27 @ 0700
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
[2024-04-25] MEDS: 0.9% Normal Saline (1000mL) 1,000 ML 100 ML IV ×2 (07:45→17:13)
[2024-04-25] MEDS: Insulin Lispro 100 UNIT/ML INSULN.PEN SC ×4 (07:46→20:45)
[2024-04-25 08:36] LABS: Bedside Glucose 195 mg/dL (74-106)
--- NOTE | 2024-04-25 08:45 | PN.SURG_ITS ---
Subjective Subjective Patient was febrile overnight Objective Data Objective Data Vital Signs: Vital Signs Temp Pulse Resp BP Pulse Ox O2 Del Method 100.4 F H 108 H 23 H 92/51 L 96 Room Air 04/25/24 08:00 04/25/24 08:00 04/25/24 08:00 04/25/24 08:00 04/25/24 08:00 04/25/24 08:00 Oxygen Delivery Method Room Air Weight: 166 lb 10.711 oz Body Mass Index (BMI) 27.7 Intake & Output: Intake and Output for Last 24 Hours 04/23/24 04/24/24 04/25/24 23:59 23:59 23:59 Intake Total 5910.20 / 5912.36 4957.6833 / 5157.6833 1740 / 1740 Output Total 2350 / 2350 1300 / 2250 1500 / 1500 Balance 3560.20 / 3562.36 3657.6833 / 2907.6833 240 / 240 Lab / Micro Data 04/25/24 04:07 04/25/24 04:07 Labs: Laboratory Results - last 24 hr 04/24/24 05:57: POC Glucose 214 H 04/24/24 09:34: POC Glucose 214 H 04/24/24 12:20: Sodium Cancelled 04/24/24 12:20: Sodium 135 L, Potassium Cancelled 04/24/24 12:20: Potassium 3.7, Chloride Cancelled 04/24/24 12:20: Chloride 109 H, Carbon Dioxide Cancelled 04/24/24 12:20: Carbon Dioxide 20.0 L, Anion Gap 6, BUN Cancelled 04/24/24 12:20: BUN 24 H, Creatinine Cancelled 04/24/24 12:20: Creatinine 0.58, Estim Creat Clear Calc Cancelled 04/24/24 12:20: Estim Creat Clear Calc 109.23, Est GFR (MDRD) Af Amer Cancelled 04/24/24 12:20: Est GFR (MDRD) Af Amer 139, Est GFR (MDRD) Non-Af Cancelled 04/24/24 12:20: Est GFR (MDRD) Non-Af 115, BUN/Creatinine Ratio Cancelled 04/24/24 12:20: BUN/Creatinine Ratio 41.2 H, Glucose Cancelled 04/24/24 12:20: Glucose 289 H, Calcium Cancelled 04/24/24 12:20: Calcium 8.0 L, Phosphorus Cancelled 04/24/24 12:20: Phosphorus 2.1 L 04/24/24 12:20: Phosphorus Cancelled, Albumin Cancelled 04/24/24 12:20: Albumin 1.9 L 04/24/24 16:15: POC Glucose 321 H 04/24/24 20:15: POC Glucose 286 H 04/25/24 04:07: WBC 11.8 H, RBC 4.11 L, Hgb 11.4 L, Hct 33.0 L, MCV 80.3 L, MCH 27.7, MCHC 34.5, RDW Std Deviation 38.2, RDW Coeff of Cele 13.1, Plt Count 82 L, MPV 11.3, Immature Gran % (Auto) 2.500 H, Neut % (Auto) 81.7 H, Lymph % (Auto) 3.8 L, [place] % (Auto) 11.6 H, Eos % (Auto) 0.2, Baso % (Auto) 0.2, Absolute Neuts (auto) 9.6 H, Absolute Lymphs (auto) 0.45 L, Nucleated RBC % 0, Differential Comment SCANNED, Sodium 138, Potassium 3.0 L, Chloride 113 H, Carbon Dioxide 19.0 L, Anion Gap 7, BUN 21 H, Creatinine 0.50 L, Estim Creat Clear Calc 126.70, Est GFR (MDRD) Af Amer 166, Est GFR (MDRD) Non-Af 137, BUN/Creatinine Ratio 42.1 H, Glucose 244 H, Calcium 7.8 L, Phosphorus 1.2 L, Magnesium 2.1 04/25/24 06:05: Vancomycin Trough 16.2 H 04/25/24 07:39: POC Glucose 195 H Micro: Microbiology 04/23/24 15:00 Blood Culture (Wb) - Central Line Blood Culture - Preliminary Escherichia coli 04/23/24 14:15 Blood Culture (Wb) - Left Hand Blood Culture - Preliminary Escherichia coli 04/23/24 16:35 Wound - Nose Skin and Soft Tissue MRSA/MSSA (PCR - Final Meth. resistant Staph. aureus 04/23/24 16:15 Mucosa - Nasopharyngeal Respiratory Panel (PCR) - Final 04/23/24 16:35 Urine Catheter - Matos Legionella Antigen - Final 04/23/24 16:35 Urine Catheter - Matos Streptococcus pneumoniae Antigen (M - Final Radiography Diagnostic Testing: Radiology Impression Echocardiogram 04/24/24 07:32 Interpretation Summary The estimated ejection fraction is 60 %. No evidence for diastolic dysfunction. Severely dilated right ventricle. Moderate global right ventricular systolic dysfunction. Ordering Physician: Kandace Arias Referring Physician: MATHEW BILL Performed By: Sophie Alexandre RCS Chest/Abdomen/Pelvis CT 04/24/24 09:02 IMPRESSION: Comparison right pneumothorax. Enlargement of both kidneys with heterogeneous enhancement bilaterally worse on the left side. Multifocal pyelonephritis should BE ruled out. Electronically Signed: Elian Johnson MD at 12:35 EST , Chest X-Ray 04/24/24 12:54 IMPRESSION: Small caliber right-sided chest tube has been placed with the decreased size of the right pneumothorax at 5%. Electronically Signed: Elian Johnson MD at 13:24 EST , Social Homelessness:: Sheltered Physical Exam Const oriented x3 and no apparent distress Resp normal respiratory effort GI soft to palpation and non-tender Assessment & Plan Assessment/Plan (1) Pneumothorax on right: PLAN: The patient appears not to have a pneumothorax on today's chest x-ray but it is not read yet. Continue suction as the patient is septic and I do not want to add a confounding factor by removing the tube too soon. Possibly waterseal tomorrow. Repeat chest x-ray in the morning. Vitor Leija MD Pager: [facility] [address] [place] [address] [address] [place] [address] Office:
[2024-04-25] MEDS: Potassium Phosphate 21 MM in 0.9% Normal Saline (250mL Bag) 250 ML 84 MM IV (09:56)
[2024-04-25] MEDS: Pantoprazole Sodium 40 MG in 0.9% Normal Saline (100mL MB+) 100 ML 330 MG IV ×2 (09:56→20:38)
[2024-04-25] MEDS: Enoxaparin 40 MG/0.4 ML Syringe SC (10:02)
[2024-04-25] MEDS: Insulin Glargine-YFGN 100 UNIT/ML Pen 40 UNIT SC ×2 (10:02→20:46)
[2024-04-25] MEDS: ARIPiprazole 5 MG Tablet PO (10:03)
[2024-04-25 11:47] LABS: Bedside Glucose 194 mg/dL (74-106)
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
[2024-04-25 15:11] LABS: Anion Gap 5 (5-15); BUN 21 mg/dL (7-18); BUN/Creat Ratio 38.8 RATIO (10-20); Calcium,Total 7.3 mg/dL (8.5-10.1); Chloride 114 mmol/L (98-107); Creatinine, Serum 0.54 mg/dL (0.55-1.02); EST Glomerular Filtration Rate 125 mL/min (>60); Est Glom Filt Rate - Afr Amer 151 mL/min (>60); Estimated Creatinine Clearance 122.57 ml/min; Glucose 237 mg/dL (74-106); Phosphorus 2.5 mg/dL (2.5-4.9); Potassium 3.7 mmol/L (3.5-5.1); Sodium Level 139 mmol/L (136-145)
--- NOTE | 2024-04-25 16:00 | PCM.HOSP.N ---
Hospitalist Note Patient still hypotensive despite fluids started this a.m. and also is tired and intermittently having some hallucinations. Will check ABG, start low-dose Levophed and consult medical records field technician. White blood cell count improved, fevers have been improving, kidney function stable with no gap and bicarb within normal limits and her E. coli is susceptible to Zosyn which she is currently on so do not think patient is acutely septic but will repeat blood cultures. Given the sedation we will hold her doxepin given sedation, review of external fill history shows that she has not filled Abilify since February so we will discontinue this and she is only on 100 of Seroquel so we will decrease this to home dose with instructions to hold for sedation.
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
[2024-04-25 16:30] LABS: Base Excess -9 mmol/L (-2 to +2); Bicarbonate 15.9 mmol/L (22-26); Blood Gas Specimen Type ART; Mode Not entered; O2 Delivery Device Not entered; PO2 78 mmHG (75-100); SITE L Brach; SO2 95 % (95-99); Total Carbon Dioxide 17 mmol/L; pCO2 27.5 mmHg (35-45); pH 7.37 (7.35-7.45)
[2024-04-25] MEDS: Norepinephrine 8 MG in 0.9% Normal Saline (250mL Bag) 242 ML 9.4 MG CONT INF (16:45)
[2024-04-25 17:32] LABS: Bedside Glucose 227 mg/dL (74-106)
[2024-04-25] MEDS: oxyCODONE 5 MG Tablet 2.5 MG PO (20:31)
[2024-04-25] MEDS: QUEtiapine 100 MG Tablet PO (20:35)
[2024-04-25] MEDS: MELATONIN 3 MG TABLET PO (20:37)
[2024-04-25 21:09] LABS: Bedside Glucose 197 mg/dL (74-106)
--- NOTE | 2024-04-25 21:49 | PCMCONS.TICU ---
HPI Consult Data Date of Consult: 04/25/24 HPI Narrative HPI Narrative: ANA CRISTINA THOMAS, is a 53 F who presents [facility] Medical History Substance abuse Smoker MRSA (methicillin resistant staph aureus) culture positive Hearing loss, left Cancer Anxiety Depression Bipolar disorder GERD (gastroesophageal reflux disease) Cirrhosis Hepatitis Smoker On home oxygen therapy COPD (chronic obstructive pulmonary disease) Failure of outpatient treatment Abnormal EKG Preoperative cardiovascular examination Abdominal wall abscess Hypertension Neuropathy Diabetes Sarcoidosis Home Medications ?Medication ?Instructions ?Recorded ?Last Taken ?Type pen needle, diabetic 31 gauge x #100 ea 02/08/24 Unknown Rx / cyclobenzaprine 5 mg PO TID PRN PRN MUSCLE SPASMS 02/20/24 Unknown History aripiprazole 5 mg tablet 5 mg PO DAILY antidepressant 30 02/29/24 Unknown Rx days #30 tabs buspirone 10 mg tablet 10 mg PO TID depression 30 days 02/29/24 Unknown Rx #90 tabs doxepin 25 mg capsule 25 mg PO QHS bipolar 30 days #30 02/29/24 Unknown Rx caps hydroxyzine pamoate 25 mg capsule 50 mg (2 x 25 mg) PO TID anxiety 02/29/24 Unknown Rx (Vistaril) 30 days #180 caps insulin glargine 100 unit/mL (3 35 unit (0.35 mL) subcut BIDCM 02/29/24 Unknown Rx mL) subcutaneous pen (Lantus blood sugar 30 days #15 mL Solostar U-100 Insulin) insulin lispro 100 unit/mL See Protocol subcut ACHS blood 02/29/24 Unknown Rx subcutaneous pen sugar 30 days #15 mL linaclotide 72 mcg capsule 72 mcg PO DAILY bowels 30 days #30 02/29/24 Unknown Rx (Linzess) caps quetiapine 100 mg tablet 100 mg PO DAILY bipolar 30 days 02/29/24 Unknown Rx #30 tabs quetiapine 200 mg tablet 200 mg PO QHS bipolar 30 days #30 02/29/24 Unknown Rx tabs gabapentin 300 mg capsule 300 mg PO TID 04/23/24 Unknown History Allergy/AdvReac Type Severity Reaction Status Date / Time aspirin AdvReac Other Verified 04/23/24 12:17 hydromorphone (From Dilaudid) AdvReac Other Verified 04/23/24 12:17 pseudoephedrine HCl (From AdvReac Other Verified 04/23/24 12:17 Sudafed) Family History other Surgical History History of cholecystectomy Hx of brain surgery Hx of appendectomy Hx of section Hx of total adrenalectomy Social History (Updated 04/23/24 @ 18:[address] Herminia Rojas MD) household members: none Smoking Status: Current every day smoker tobacco type: cigarettes Smoking packs per day: 0.5 Smoking cigarettes per day: 10.0 quit status: considering quitting alcohol intake: never substance use type: former substance user Homelessness:: Sheltered Objective Data Objective Data Vital Signs: Vital Signs Last response Temperature 39.1 C H 04/25/24 20:00 Temperature Source Core 04/25/24 20:00 Pulse Rate 106 H 04/25/24 21:30 Pulse Strength Weak (1+) 04/25/24 08:04 Respiratory Rate 22 H 04/25/24 21:00 Respiratory Effort Normal, Non-Labored 04/25/24 20:00 Respiratory Depth Normal 04/25/24 20:00 Respiratory Pattern Normal 04/25/24 20:00 Blood Pressure 100/56 L 04/25/24 21:30 Blood Pressure Mean 70 04/25/24 21:30 Blood Pressure Source Monitor 04/25/24 21:30 Blood Pressure Position Supine 04/25/24 16:00 Blood Pressure Location Left Arm 04/25/24 16:00 Pulse Ox 96 04/25/24 21:00 Oxygen Delivery Method Room Air 04/25/24 21:00 I&O: I&O Last 24 Hours 04/24/24 04/25/24 04/25/24 23:59 11:59 23:59 Intake Total 2959.3333 / 5157.6833 2019 / 3694.22 1674.22 / 3694.22 Output Total 1000 / 2250 1600 / 2175 575 / 2175 Balance 1959.3333 / 2907.6833 420 / 1519.22 1099.22 / 1519.22 I&O: Total Stay 04/23/24 12:16 thru 04/25/24 21:30 Intake Total 54897.1033 Output Total 5825 Balance 8737.1033 Current Meds Ordered / Administered: Current meds ordered / Administered Generic Name Dose Route Start Last Admin Trade Name Freq PRN Reason Stop Dose Admin Acetaminophen 650 mg 04/23/24 19:30 04/25/24 20:32 Acetaminophen 325 Mg Tablet PO 650 mg Q4H PRN PRN Administration Fever, pain 1-10/10 Acetaminophen 650 mg 04/23/24 22:56 Acetaminophen 650 Mg Suppository RC Q4H PRN PRN Pain 1-10 or Fever Al Hydroxide/Mg Hydroxide 30 ml 04/23/24 15:57 Mag Hydrox/Al Hydrox/Simeth 30 Ml Udc PO Q6H PRN PRN Gastric Burning Albuterol Sulfate 2.5 mg 04/23/24 15:57 04/24/24 04:44 Albuterol 2.5 Mg/3 Ml Vial.Neb. INHALATION 2.5 mg Q2H PRN PRN Administration Dyspnea, wheezing Budesonide 0.5 mg 04/23/24 15:57 04/24/24 07:37 Budesonide Respules 0.5 Mg/2 Ml Ampul.Neb. INHALATION 0.5 mg BID.RT CONCEPCIÓN Administration Buspirone HCl 10 mg 04/23/24 22:00 04/25/24 20:34 Buspirone 5 Mg Tablet PO 10 mg TID CONCEPCIÓN Administration Enoxaparin Sodium 40 mg 04/24/24 10:00 04/25/24 10:02 Enoxaparin 40 Mg/0.4 Ml Syringe SC 40 mg DAILY CONCEPCIÓN Administration Glucagon 1 mg 04/24/24 15:51 Glucagon 1 Mg/Ml Syringe IM X1 PRN Hypoglycemia Protocol Guaifenesin 10 ml 04/23/24 15:57 Guaifenesin 10 Ml Udc (200mg/10ml) PO Q4H PRN PRN COUGH Hydralazine HCl 10 mg 04/23/24 15:57 Hydralazine 20 Mg/Ml Vial IV Q4H PRN PRN SBP > 160 Protocol Pantoprazole Sodium 40 mg/ 110 mls @ 330 mls/hr 04/23/24 22:00 04/25/24 21:00 Sodium Chloride IV Infused Q12 CONCEPCIÓN Infusion Piperacillin Sod/Tazobactam 50 mls @ 12.5 mls/hr 04/24/24 22:00 04/25/24 21:28 Sod 3.375 gm/ Sodium Chloride IV 12.5 mls/hr Q8 CONCEPCIÓN Administration Dextrose 250 mls @ 0 mls/hr 04/24/24 15:51 Dextrose 10%-Water IV .Q0M PRN HYPOGLYCEMIA Protocol As Directed Sodium Chloride 1,000 mls @ 100 mls/hr 04/25/24 07:10 04/25/24 17:13 IV 04/26/24 03:09 100 mls/hr .Q10H CONCEPCIÓN Administration Protocol Norepinephrine Bitartrate 8 mg 250 mls @ 9.375 mls/hr 04/25/24 16:00 04/25/24 21:30 / Sodium Chloride CONT INF 0 mcg/min .[id number] CONCEPCIÓN 0 mls/hr Titration Protocol 5 MCG/MIN Insulin Glargine 40 unit 04/25/24 10:00 04/25/24 20:46 Insulin Glargine-Yfgn 100 Unit/Ml Pen SC 40 unit BID CONCEPCIÓN Administration Insulin Human Lispro 0 unit 04/24/24 16:00 04/25/24 20:45 Insulin Lispro 100 Unit/Ml Insuln.Pen SC 2 units ACHS CONCEPCIÓN Administration Protocol Melatonin 3 mg 04/23/24 15:57 04/25/24 20:37 Melatonin 3 Mg Tablet PO 3 mg QHS PRN PRN Administration INSOMNIA Nystatin 1 applic 04/24/24 09:05 04/25/24 20:34 Nystatin Powder 15gm Bottle TOPICAL 1 applic TID [facility] Administration Protocol Ondansetron HCl 4 mg 04/23/24 15:57 04/23/24 16:36 Ondansetron 4 Mg/2 Ml Vial IV 4 mg Q8H PRN PRN Administration NAUSEA/VOMITING Oxycodone HCl 2.5 mg 04/24/24 09:02 04/25/24 20:31 Oxycodone 5 Mg Tablet PO 2.5 mg Q4H PRN PRN Administration Pain Score 4-10 Potassium Phos/Sodium Phos 1 packet 04/25/24 04:40 04/25/24 16:55 Na Biphos/Potassium Phosphate Packet PO 1 packet TIDAC CONCEPCIÓN Administration Prochlorperazine Edisylate 5 mg 04/23/24 15:57 Prochlorperazine 10 Mg/2 Ml Vial IV Q4H PRN PRN Breakthrough Nausea/Vomiting Psyllium Hydrophilic Mucilloid 1 packet 04/23/24 15:57 Psyllium 1 Packet PO DAILY PRN PRN Constipation Quetiapine Fumarate 100 mg 04/25/24 22:00 04/25/24 20:35 Quetiapine 100 Mg Tablet PO 100 mg QHS CONCEPCIÓN Administration Senna/Docusate Sodium 2 tablet 04/24/24 10:00 Senna/Docusate Sodium 1 Tablet PO BID PRN CONSTIPATION Sodium Chloride 10 - 40 ml 04/23/24 17:05 04/24/24 11:21 0.9 % Nacl (Sterile) Posiflush 10 Ml IV 40 ml UD PRN Administration Port access or dressing change Sodium Chloride 10 - 40 ml 04/23/24 17:05 0.9% Saline Lock 10 Ml Syringe IV UD PRN Multilumen/Ray Flush Lab / Micro Data 04/25/24 04:07 04/25/24 14:20 Labs: Laboratory Results - last 24 hr 04/25/24 04:07: WBC 11.8 H, RBC 4.11 L, Hgb 11.4 L, Hct 33.0 L, MCV 80.3 L, MCH 27.7, MCHC 34.5, RDW Std Deviation 38.2, RDW Coeff of Cele 13.1, Plt Count 82 L, MPV 11.3, Immature Gran % (Auto) 2.500 H, Neut % (Auto) 81.7 H, Lymph % (Auto) 3.8 L, Taylor % (Auto) 11.6 H, Eos % (Auto) 0.2, Baso % (Auto) 0.2, Absolute Neuts (auto) 9.6 H, Absolute Lymphs (auto) 0.45 L, Nucleated RBC % 0, Differential Comment SCANNED, Sodium 138, Potassium 3.0 L, Chloride 113 H, Carbon Dioxide 19.0 L, Anion Gap 7, BUN 21 H, Creatinine 0.50 L, Estim Creat Clear Calc 126.70, Est GFR (MDRD) Af Amer 166, Est GFR (MDRD) Non-Af 137, BUN/Creatinine Ratio 42.1 H, Glucose 244 H, Calcium 7.8 L, Phosphorus 1.2 L, Magnesium 2.1 04/25/24 06:05: Vancomycin Trough 16.2 H 04/25/24 07:39: POC Glucose 195 H 04/25/24 11:25: POC Glucose 194 H 04/25/24 14:20: Sodium 139, Potassium 3.7, Chloride 114 H, Carbon Dioxide 21.0, Anion Gap 5, BUN 21 H, Creatinine 0.54 L, Estim Creat Clear Calc 122.57, Est GFR (MDRD) Af Amer 151, Est GFR (MDRD) Non-Af 125, BUN/Creatinine Ratio 38.8 H, Glucose 237 H, Calcium 7.3 L, Phosphorus 2.5 04/25/24 16:31: POC Glucose 227 H 04/25/24 20:45: POC Glucose 197 H Micro: Microbiology 04/23/24 15:00 Blood Culture (Wb) - Central Line Blood Culture - Preliminary Escherichia coli 04/23/24 14:15 Blood Culture (Wb) - Left Hand Blood Culture - Preliminary Escherichia coli ABG Data ABG results: ABG 04/25/24 16:27 Specimen Type ART Sample Site L Brach pH 7.37 Bicarbonate Actual 15.9 L Total CO2 17 Base Excess -9 L O2 Saturation 95 O2 % 21.0 ABG pCO2 27.5 L ABG pO2 78 O2 Delivery Device Not entered Vent Mode Not entered Imaging Radiology Impression Chest X-Ray 04/25/24 05:35 IMPRESSION: No radiographic evidence of acute cardiopulmonary disease. Electronically Signed: Solomon Bach DO at 9:57 EST Reading Location ID and State: [facility] / [place] Tel [phone], Service support , Assessment and Plan . Assessment and plan: 53 yo female smoker admitted 04/23/24 w/ DKA. Noted tachycardia and hypoactivity in the ED. CVC placed - c/b PTX requiring small-bore catheter placement for drainage. UA revealed glucosuria and ketonuria. No WBC - No CX obtained. She has developed significant fever - BCX reveal E coli. CT C/A/P reveals fatty liver, some e/o pyelonephritis. Current lab largely unremarkable - AG closed. Despite ABX, she remains febrile. She was TX to ICU, but NE has not been required, TTE reveals elevated PAP, markedly enlarged RV w/ reduced LVSF. EXAM GEN appears ill, hypoactive VS as above HEENT o/p clear NECK (+) JVD COR RRR CHEST CTA ABD soft EXT minimal edema SKIN w/d KIMBERLEY grossly NF ASSESSMENT 1. Severe sepsis 2. GNR bacteremia 3. (?) pyelonephritis 4. Iatrogenic right PTX - small-bore catheter placement 5. Tobacco use 6. PAH w/ RV dysfunction 7. H/O illicit drug abuse 8. Chronic psychiatric illness 9. Thrombocytopenia TREATMENT PLAN -volume expansion -IV ABX -IV hydrocortisone -right pleural catheter -sq insulin -VTE ppx -needs further w/u of PAH once not acutely ill Critical Care Time: 60 min The entirety of this encounter was done via Telemedicine
[2024-04-26] VITALS (25 sets, daily range): BP systolic 91–144; BP diastolic 49–88; PULSE 80–143; RESP 16–30; TEMP 36.5–39.6; O2SAT 94–100; BMI 27.3
[2024-04-26] MEDS: oxyCODONE 5 MG Tablet 2.5 MG PO (01:58)
[2024-04-26] MEDS: Acetaminophen 325 MG Tablet 650 MG PO ×4 (01:58→22:33)
[2024-04-26] MEDS: 0.9 % NaCl (Sterile) Posiflush 10 mL IV (05:44)
[2024-04-26] MEDS: Piperacil/Tazobactam 3.375 GM in 0.9% Normal Saline (50mL MB+) 50 ML IV ×3 (05:45→22:33)
--- NOTE | 2024-04-26 05:50 | RAD_ITS ---
EXAM: XR CHEST, 1 VIEW CLINICAL INDICATION: pneumothorax TECHNIQUE: Frontal view of the chest. COMPARISON: 04/25/2024. FINDINGS: LUNGS AND PLEURAL SPACES: Rotated chest positioning. No suspicious infiltrates, consolidation or edema. No pleural effusion. No pneumothorax. HEART: Unremarkable. Cardiac silhouette not enlarged. MEDIASTINUM: Central airways and mediastinal contour are unremarkable. BONES/JOINTS: Unremarkable. No acute fracture. SOFT TISSUES: Unremarkable. TUBES, LINES AND DEVICES: Right IJ approach [id number] tip remains in the distal SVC. Right percutaneous drain catheter in place. RAD/Chest 1 View (Portable) IMPRESSION: 1. No pneumothorax or acute abnormality abnormality in the chest. 2. No interval change. Electronically Signed: Albert Smith MD at 10:50 EST ,
[2024-04-26 06:06] LABS: Absolute Lymphocyte Count 1.17 X10^3/uL (0.83-4.51); Absolute Neutrophil Count 9.8 X10^3/uL (2.0-7.7); Basophil# 0.13 X10^3/uL; Eosinophil# 0.07 X10^3/uL; Eosinophils% 0.5 % (0-5); Hematocrit 30.8 % (37-47); Hemoglobin 10.6 g/dL (12.0-15.0); Lymphocyte # 1.17 X10^3/ul (0.83-4.51); Lymphocyte % 8.6 % (19-41); Mean Corp Hgb Conc 34.4 g/dL (32-36); Mean Corpuscular Hgb 27.5 pg (27.0-32.0); Mean Platelet Vol. 11.5 fl (6.2-12.0); Monocyte# 1.69 X10^3/uL; Monocyte% 12.5 % (0-10); NRBC Flagged by Analyzer 0 % (0-5); Neutrophil # 9.79 X10^3/uL (2.7-7.7); Neutrophil % 72.4 % (47-70); POSITIVE COUNT YES; POSITIVE DIFFERENTIAL YES; POSITIVE MORPHOLOGY YES; Platelet Count 102 K/mm3 (150-450); RBC Distribution Width CV 13.2 % (11.6-14.6); RBC Distribution Width SD 38.5 fl (35.1-43.9); Red Blood Count 3.85 M/mm3 (4.2-5.4); White Blood Count 13.5 K/mm3 (4.4-11.0)
[2024-04-26 06:15] LABS: Differential Indicated SCAN CRITERIA MET
[2024-04-26 06:25] LABS: Anion Gap 3 (5-15); BUN 17 mg/dL (7-18); BUN/Creat Ratio 35.7 RATIO (10-20); Calcium,Total 7.8 mg/dL (8.5-10.1); Chloride 114 mmol/L (98-107); Creatinine, Serum 0.48 mg/dL (0.55-1.02); EST Glomerular Filtration Rate 145 mL/min (>60); Est Glom Filt Rate - Afr Amer 175 mL/min (>60); Estimated Creatinine Clearance 136.86 ml/min; Glucose 71 mg/dL (74-106); Sodium Level 140 mmol/L (136-145)
[2024-04-26 06:54] LABS: Differential Comment SCANNED
--- NOTE | 2024-04-26 07:06 | PN.HOSP_ITS ---
Reason for Visit Reason for Visit: Diagnoses Type 1 diabetes mellitus with ketoacidosis without coma (04/23/24) Pneumothorax, unspecified (04/23/24) Acute kidney failure, unspecified (04/23/24) Systemic inflammatory response syndrome (SIRS) of non-infectious origin without acute organ dysfunction (04/23/24) Subjective Subjective Patient sitting up in bed, attempting breakfast, is awake and responds to questions but will really only answer basic questions and cannot elaborate, only new complaint today is abdominal pain but cannot be more specific than that, is somewhat tachypneic and tachycardic but presently febrile at 103. Objective Data Objective Data Vital Signs: Vital Signs Temp Pulse Resp BP Pulse Ox O2 Del Method 101.5 F H 112 H 21 H 105/54 L 95 Room Air 04/26/24 06:00 04/26/24 06:00 04/26/24 06:00 04/26/24 06:00 04/26/24 06:00 04/26/24 06:00 Oxygen Delivery Method Room Air Weight: 74.4 kg Body Mass Index (BMI) 27.3 Intake & Output: Intake and Output for Last 24 Hours 04/24/24 04/25/24 04/26/24 23:59 23:59 23:59 Intake Total 4957.6833 / 5157.6833 3694.22 / 3694.22 1050 / 1050 Output Total 1300 / 2250 2175 / 3025 1150 / 1150 Balance 3657.6833 / 2907.6833 1519.22 / 669.22 -100 / -100 Lab / Micro Data 04/26/24 05:40 04/26/24 05:40 Labs: Laboratory Results - last 24 hr 04/25/24 07:39: POC Glucose 195 H 04/25/24 11:25: POC Glucose 194 H 04/25/24 14:20: Sodium 139, Potassium 3.7, Chloride 114 H, Carbon Dioxide 21.0, Anion Gap 5, BUN 21 H, Creatinine 0.54 L, Estim Creat Clear Calc 122.57, Est GFR (MDRD) Af Amer 151, Est GFR (MDRD) Non-Af 125, BUN/Creatinine Ratio 38.8 H, G lucose 237 H, Calcium 7.3 L, Phosphorus 2.5 04/25/24 16:31: POC Glucose 227 H 04/25/24 20:45: POC Glucose 197 H 04/26/24 05:40: WBC 13.5 H, RBC 3.85 L, Hgb 10.6 L, Hct 30.8 L, MCV 80.0 L, MCH 27.5, MCHC 34.4, RDW Std Deviation 38.5, RDW Coeff of Cele 13.2, Plt Count 102 L, MPV 11.5, Immature Gran % (Auto) 5.000 H, Neut % (Auto) 72.4 H, Lymph % (Auto) 8.6 L, Grant % (Auto) 12.5 H, Eos % (Auto) 0.5, Baso % (Auto) 1.0, Absolute Neuts (auto) 9.8 H, Absolute Lymphs (auto) 1.17, Nucleated RBC % 0, Differential Comment SCANNED, Diff Path Review August, Sodium 140, Potassium 3.0 L, C hloride 114 H, Carbon Dioxide 23.0, Anion Gap 3 L, BUN 17, Creatinine 0.48 L, Estim Creat Clear Calc 136.86, Est GFR (MDRD) Af Amer 175, Est GFR (MDRD) Non-Af 145, BUN/Creatinine Ratio 35.7 H, Glucose 71 L, Calcium 7.8 L Micro: Microbiology 04/23/24 15:00 Blood Culture (Wb) - Central Line Blood Culture - Preliminary Escherichia coli 04/23/24 14:15 Blood Culture (Wb) - Left Hand Blood Culture - Preliminary Escherichia coli 04/23/24 16:35 Wound - Nose Skin and Soft Tissue MRSA/MSSA (PCR - Final Meth. resistant Staph. aureus 04/23/24 16:15 Mucosa - Nasopharyngeal Respiratory Panel (PCR) - Final 04/23/24 16:35 Urine Catheter - Matos Legionella Antigen - Final 04/23/24 16:35 Urine Catheter - Matos Streptococcus pneumoniae Antigen (M - Final ABG Data ABG results: ABG 04/25/24 16:27 Specimen Type ART Sample Site L Brach pH 7.37 Bicarbonate Actual 15.9 L Total CO2 17 Base Excess -9 L O2 Saturation 95 O2 % 21.0 ABG pCO2 27.5 L ABG pO2 78 O2 Delivery Device Not entered Vent Mode Not entered Radiography Diagnostic Testing: Radiology Impression Chest X-Ray 04/25/24 05:35 IMPRESSION: No radiographic evidence of acute cardiopulmonary disease. Electronically Signed: Solomon Bach DO at 9:57 EST Reading Location ID and State: [facility] / [place] Tel [phone], Service support , Social Homelessness:: Sheltered Physical Exam Narrative General: Awake, answers questions but limited in not elaborating HEENT: Atraumatic, normocephalic Eyes: Anicteric, normal conjunctiva, extraocular movements grossly intact Neck: Supple Respiratory: Slightly tachypneic with diminished breath sounds bilaterally but no wheezes or rhonchi appreciated at this time Cardiovascular: Tachycardic but sinus GI: Soft, does not seem to be tender on palpation with no rebound, guarding, rigidity but patient self reports abdominal pain Extremities: No significant pitting edema Musculoskeletal: Moving all extremities Neuro: No overt focal neurological deficits but patient participating in neuroexam Skin: Cheeks are pink Psych: Attempts to be cooperative Assessment & Plan Assessment/Plan (1) DKA, type 1: PLAN: Plan # Multifocal left-sided pyelonephritis with E. coli bacteremia -Tmax of 104 overnight with patient tachypneic and tachycardic -White blood cell count 23 on presentation with broad-spectrum antibiotics as 15 -Additionally Pro-Zach greater than 20 -UA unremarkable -Chest x-ray did not report any acute disease -Urine antigens negative -Base respiratory panel negative -Currently 2 out of 2 blood cultures with gram-negative rods (initially reported out as gram positive rods but has been changed) -Continue broad-spectrum antibiotics at this time -Patient does reportedly have a substance use history and well currently reporting no use will obtain echocardiogram given unclear source to assess for any vegetations -Additionally given patient's complaints only being mild cough and some left- sided flank pain she had a CT of chest abdomen and pelvis with contrast which showed multifocal pyelonephritis, awaiting cultures -04/25: Patient still intermittently spiking fevers however source identified as multifocal pyelonephritis and she has been treated with vancomycin and Zosyn pending cultures. First blood culture growing E. coli and it is sensitive to Zosyn. Will discontinue vancomycin. If she continues having elevated fevers may need to rescan kidneys to assess for any abscess formation however no abscesses noted on the CT abdomen and pelvis with contrast from 04/24 and fevers are slowly downtrending white blood cell count is improving -04/26: Patient continues to spike temperatures, she remains on Zosyn but has been spiking temperatures since vancomycin was discontinued so we we will resume this pending repeat cultures, additionally given vague respiratory as well as abdominal complaints will reimage. May need to consult infectious disease tomorrow # Right-sided pneumothorax -Patient was slightly tachypneic and slightly tachycardic however she was febrile which would have accounted for both of these things and was not reporting any overt shortness of breath -Earlier chest x-rays had not called pneumothorax however CT of the chest/abdomen/pelvis obtained for finding source of infection revealed right- sided pneumothorax -Pulm and surgery contacted and patient had chest tube placed -04/25: Surgery managing chest tube, repeat chest x-ray this a.m with no noted pneumothorax however given patient's vitals they will be maintained today -04/26: Repeat chest x-ray this a.m., surgery following for chest tube management #DKA in setting of chronic type 1 diabetes, DKA now resolved -Serum glucose in ED 475, anion gap 21 -Urine ketones 50 -Serum acetone moderate -Admit to intensive care unit -Patient made n.p.o. and started on insulin drip -Aggressive fluid hydration -Glucose checks and DKA protocol -Trend BMP -A1c 11.7 -Presently gap is closed and appears patient is out of DKA. Of note patient reports that her insulin was taken by her ex- and that is why she was out of it and came in DKA -Patient transition to long-acting and sliding scale, tolerating p.o. -04/25: Gap remains closed but glucose still elevated, will increase long-acting insulin -04/26: Patient's glucose on BMP only 71 and had difficulty increasing with orange juice and required D10, long-acting insulin was held # KASSY -On admission creatinine 1.43 with a baseline around 0.5-0.7 -Today creatinine 0.68, improved with IV fluids -04/25: Kidney function continues to improve -04/26: Kidney function remained stable today #Hypokalemia -Replace -Repeat in the AM -04/26: Potassium 3, will replace # COPD -Continue budesonide therapy and as needed albuterol -04/25: Patient 96% on room air, continue current management -04/26: Remains 98% on room air, monitoring respiratory status Chronic medical problems: #GERD -Continue PPI #Depression/anxiety, ? History of bipolar disorder -Continue home medications though it is unclear exactly what those are as patient's fill history and current medication list are not necessarily concurrent -Do not see where she has recently filled hydroxyzine so we will discontinue this as it may be contributing to her increased lethargy #DVT ppx: Lovenox subcu Kandace Arias MD Time spent in the patient's overall evaluation, decision-making process, review of diagnostic data, adjustment of management, discussion with other providers, nursing and ancillary staff involved in patient's care documentation, 52 Minutes Charges/Coding Visit Charges Inpatient E&M: 71777 Subs Hosp L3
[2024-04-26] MEDS: Enoxaparin 40 MG/0.4 ML Syringe SC (08:09)
[2024-04-26] MEDS: Potassium Chloride 20mEq/100mL 20 MEQ/100 ML IV.SOLN. 100 MEQ IV BOLUS ×2 (08:10→11:38)
[2024-04-26] MEDS: Pantoprazole Sodium 40 MG in 0.9% Normal Saline (100mL MB+) 100 ML 330 MG IV ×2 (08:10→21:55)
[2024-04-26] MEDS: Na Biphos/Potassium Phosphate PACKET 1 PACKET PO ×3 (08:11→16:04)
[2024-04-26] MEDS: Vancomycin HCl 1,750 MG in 0.9% Normal Saline (500mL Bag) 500 ML 250 MG IV (08:13)
[2024-04-26 08:19] LABS: Bedside Glucose 58 mg/dL (74-106)
[2024-04-26] MEDS: Dextrose 10%-Water 250 ML 999 ML IV (08:26)
--- NOTE | 2024-04-26 08:49 | PCM.RX.CS ---
Consult Antibiotic Management Pharmacy has been consulted to manage selected antibiotic: Vancomycin Type of Intervention Type of Consult: New start Labs Labs: Sodium 140 mmol/L (136-145) 04/26/24 05:40 Potassium 3.0 mmol/L (3.5-5.1) L 04/26/24 05:40 Chloride 114 mmol/L (98-107) H 04/26/24 05:40 Carbon Dioxide 23.0 mmol/L (21.0-32.0) 04/26/24 05:40 Anion Gap 3 (5-15) L 04/26/24 05:40 BUN 17 mg/dL (7-18) 04/26/24 05:40 Creatinine 0.48 mg/dL (0.55-1.02) L 04/26/24 05:40 Est GFR (MDRD) Af Amer 175 mL/min (>60) 04/26/24 05:40 Est GFR (MDRD) Non-Af 145 mL/min (>60) 04/26/24 05:40 BUN/Creatinine Ratio 35.7 RATIO (10-20) H 04/26/24 05:40 Glucose 71 mg/dL (74-106) L 04/26/24 05:40 Vancomycin Trough 16.2 ug/mL (5.0-15.0) H 04/25/24 06:05 Microbiology Microbiology: Microbiology 04/23/24 14:15 Blood Culture (Wb) - Left Hand Blood Culture - Final Escherichia coli 04/23/24 15:00 Blood Culture (Wb) - Central Line Blood Culture - Final Escherichia coli 04/23/24 16:35 Wound - Nose Skin and Soft Tissue MRSA/MSSA (PCR - Final Meth. resistant Staph. aureus 04/23/24 16:15 Mucosa - Nasopharyngeal Respiratory Panel (PCR) - Final 04/23/24 16:35 Urine Catheter - Matos Legionella Antigen - Final 04/23/24 16:35 Urine Catheter - Matos Streptococcus pneumoniae Antigen (M - Final Dosing Weight Weight used for dosin kg Estimated Creatinine Clearance Estimated Creatinine Clearance: >100ML/MIN Goal Trough Goal Trough: 15-20 mcg/mL Pharmacy Plan for Drug Dosing Pharmacy Plan for Drug Dosing: Vancomycin was ordered to be restarted today after it had been dicsontinued yesterday morning. The patient has gone approximately 36 hours since the last dose of 1250mg q12h. As ordered, will reload with 1750mg IV x1, then will continue with 1500mg IV q12h. This is a slight increase from the patient's previous dose as the most recent trough with that dose was taken at only 10 hours and the level would have been lower if drawn closer to the 12-hr jose luis. Will check a trough before the 4th overall dose upon restart. Pharmacy Service will continue to monitor and adjust dosing as required. Follow-Up Labs Follow-Up Labs: Trough: Vancomycin Date/Time Labs Ordered Labs to be done on [date and time ordered]: 04/27/24 19:30
[2024-04-26 08:55] LABS: Bedside Glucose 59 mg/dL (74-106)
[2024-04-26 08:55] LABS: Bedside Glucose 112 mg/dL (74-106)
--- NOTE | 2024-04-26 09:20 | CT_ITS ---
EXAM: CT CHEST, ABDOMEN AND PELVIS WITH INTRAVENOUS CONTRAST CLINICAL INDICATION: fevers again of 103+, tachypneic and abdominal pain, DKA TECHNIQUE: Helically acquired images were obtained of the chest, abdomen and pelvis with intravenous contrast. This CT exam was performed using one or more of the following dose reduction techniques: automated exposure control, adjustment of the mA and/or kV according to patient size, and/or use of iterative reconstruction technique. CONTRAST: IV 100mL [id number] RADIATION DOSE: CTDIvol = 19.96 mGy, DLP = 3017.94 mGy-cm COMPARISON: CT chest abdomen pelvis with contrast 04/24/2024. FINDINGS: CHEST: LUNGS AND PLEURAL SPACES: Mild increase left posterior pleural effusion. New right posterior pleural effusion. Partial atelectasis in the left posterior lung base and minimal subpleural atelectasis in the right posterior lung base. No mass. No pneumothorax. HEART: Unremarkable. Heart size is normal. No pericardial effusion. MEDIASTINUM: Unremarkable. No mediastinal or hilar adenopathy. Esophagus is unremarkable. No hiatal hernia. THYROID: Unremarkable. No thyroid lesions. ABDOMEN: LIVER: Diffuse fatty infiltration of liver is unchanged. GALLBLADDER AND BILE DUCTS: Surgical clips in the right upper quadrant of the abdomen cholecystectomy. No intra- or extrahepatic biliary ductal dilation. PANCREAS: Unremarkable. No focal cystic or solid mass. SPLEEN: Unremarkable. Normal size without focal cystic or solid mass. ADRENALS: Unremarkable. No nodules. KIDNEYS AND URETERS: Abnormal asymmetric contrast enhancement of the left consistent with pyelonephritis. Mild thickening of the glaser of the left renal pelvis suspicious for infection. 2 mm nonobstructing stone in the right kidney. Nonenhancing right anterior renal parenchymal cyst is unchanged. Normal renal size and position. STOMACH AND BOWEL: Unremarkable. No stomach or bowel distention. No focal inflammatory change. PELVIS: APPENDIX: The appendix is not visualized. No secondary signs of acute appendicitis. BLADDER: Indwelling Matos catheter inside the urinary bladder. Nearly empty urinary bladder. REPRODUCTIVE: Unremarkable as visualized. No mass. CHEST, ABDOMEN and PELVIS: INTRAPERITONEAL SPACE: Small ascites in the left paracolic gutter is a new finding. Mild increase in ascites in the central pelvis. No free air. BONES/JOINTS: Old central compression fracture of the upper T12 vertebral body is unchanged. Moderately pronounced L4-L5 disc space height narrowing with degenerative vacuum phenomenon. This is also unchanged. No suspicious lytic or blastic abnormality. SOFT TISSUES: Edema in the flanks of the abdomen. This is a new finding. Small midline umbilical hernia containing only fat. VASCULATURE: Unremarkable. Aorta is non-dilated. No aortic dissection. No obvious central pulmonary embolism although this study was not performed with the pulmonary embolism protocol. LYMPH NODES: Unremarkable. No enlarged lymph nodes. CT/CT Chest, Abd, Pel w/Contrast IMPRESSION: 1. Abnormal asymmetric contrast enhancement of the left consistent with pyelonephritis. Mild thickening of the glaser of the left renal pelvis suspicious for infection. These are unchanged. 2. Small midline umbilical hernia containing only fat. 3. Mild increase left posterior pleural effusion. New right posterior pleural effusion. 4. Small ascites in the left paracolic gutter is a new finding. Mild increase in ascites in the central pelvis. 5. Edema in the flanks of the abdomen. This is a new finding. 6. Diffuse fatty infiltration of liver is unchanged. Electronically Signed: Albert Smith MD at 10:43 EST ,
[2024-04-26 09:59] LABS: AST(SGOT) 20 U/L (15-37); Alanine Aminotransfer ALT/SGPT 22 U/L (13-56); Albumin, Serum 1.4 g/dL (3.2-5.0); Alkaline Phosphatase 103 U/L (45-117); Bilirubin, Direct 0.32 mg/dL (0.00-0.30); CPK Total, Creatine Kinase 80 U/L (26-192); Globulin 3.1 g/dL (2.2-4.2); Iron 19 ug/dL (50-170); Iron Binding Capacity,Total 161 ug/dL (250-450); LDH 227 U/L (84-246); Magnesium 1.9 mg/dL (1.6-2.6); PERCENT IRON SATURATION 11.8 % (15.0-55.0); Protein, Total 4.5 g/dL (6.4-8.2)
[2024-04-26 10:01] LABS: T4 Free Direct 1.08 ng/dL (0.76-1.46); Thyroid Stim Hormone (TSH) 0.703 uIU/mL (0.358-3.740)
--- NOTE | 2024-04-26 10:01 | PN.SURG_ITS ---
Subjective Subjective Patient is feeling worse today. Objective Data Objective Data Vital Signs: Vital Signs Temp Pulse Resp BP Pulse Ox O2 Del Method 103.3 F H 129 H 30 H 128/64 H 98 Room Air 04/26/24 09:00 04/26/24 09:00 04/26/24 09:00 04/26/24 09:00 04/26/24 09:00 04/26/24 09:00 Oxygen Delivery Method Room Air Weight: 164 lb 0.383 oz Body Mass Index (BMI) 27.3 Intake & Output: Intake and Output for Last 24 Hours 04/24/24 04/25/24 04/26/24 23:59 23:59 23:59 Intake Total 4957.6833 / 5157.6833 3694.22 / 3694.22 1460 / 1460 Output Total 1300 / 2250 2175 / 3025 1305 / 1305 Balance 3657.6833 / 2907.6833 1519.22 / 669.22 155 / 155 Lab / Micro Data 04/26/24 05:40 04/26/24 05:40 Labs: Laboratory Results - last 24 hr 04/25/24 11:25: POC Glucose 194 H 04/25/24 14:20: Sodium 139, Potassium 3.7, Chloride 114 H, Carbon Dioxide 21.0, Anion Gap 5, BUN 21 H, Creatinine 0.54 L, Estim Creat Clear Calc 122.57, Est GFR (MDRD) Af Amer 151, Est GFR (MDRD) Non-Af 125, BUN/Creatinine Ratio 38.8 H, G lucose 237 H, Calcium 7.3 L, Phosphorus 2.5 04/25/24 16:31: POC Glucose 227 H 04/25/24 20:45: POC Glucose 197 H 04/26/24 05:40: WBC 13.5 H, RBC 3.85 L, Hgb 10.6 L, Hct 30.8 L, MCV 80.0 L, MCH 27.5, MCHC 34.4, RDW Std Deviation 38.5, RDW Coeff of Cele 13.2, Plt Count 102 L, MPV 11.5, Immature Gran % (Auto) 5.000 H, Neut % (Auto) 72.4 H, Lymph % (Auto) 8.6 L, [place] % (Auto) 12.5 H, Eos % (Auto) 0.5, Baso % (Auto) 1.0, Absolute Neuts (auto) 9.8 H, Absolute Lymphs (auto) 1.17, Nucleated RBC % 0, Differential Comment SCANNED, Diff Path Review August, Sodium 140, Potassium 3.0 L, C hloride 114 H, Carbon Dioxide 23.0, Anion Gap 3 L, BUN 17, Creatinine 0.48 L, Estim Creat Clear Calc 136.86, Est GFR (MDRD) Af Amer 175, Est GFR (MDRD) Non-Af 145, BUN/Creatinine Ratio 35.7 H, Glucose 71 L, Calcium 7.8 L, Magnesium 1.9, I elizabeth 19 L, TIBC 161 L, Iron Saturation 11.8 L, Total Bilirubin 0.60, Direct Bilirubin 0.32 H, AST 20, ALT 22, Alkaline Phosphatase 103, Lactate Dehydrogenase 227, Total Creatine Kinase 80, Total Protein 4.5 L, Albumin 1.4 L, Globulin 3.1, TSH 0.703, Free T4 1.08 04/26/24 07:56: POC Glucose 58 L 04/26/24 08:11: POC Glucose 59 L 04/26/24 08:36: POC Glucose 112 H Micro: Microbiology 04/23/24 14:15 Blood Culture (Wb) - Left Hand Blood Culture - Final Escherichia coli 04/23/24 15:00 Blood Culture (Wb) - Central Line Blood Culture - Final Escherichia coli 04/23/24 16:35 Wound - Nose Skin and Soft Tissue MRSA/MSSA (PCR - Final Meth. resistant Staph. aureus 04/23/24 16:15 Mucosa - Nasopharyngeal Respiratory Panel (PCR) - Final 04/23/24 16:35 Urine Catheter - Matos Legionella Antigen - Final 04/23/24 16:35 Urine Catheter - Matos Streptococcus pneumoniae Antigen (M - Final ABG Data ABG results: ABG 04/25/24 16:27 Specimen Type ART Sample Site L Brach pH 7.37 Bicarbonate Actual 15.9 L Total CO2 17 Base Excess -9 L O2 Saturation 95 O2 % 21.0 ABG pCO2 27.5 L ABG pO2 78 O2 Delivery Device Not entered Vent Mode Not entered Social Homelessness:: Sheltered Physical Exam Const oriented x3 Resp normal respiratory effort GI soft to palpation and non-tender Assessment & Plan Assessment/Plan (1) Pneumothorax on right: PLAN: The patient's sepsis is worsening. Patient just had a repeat chest abdomen pelvis CAT scan to try to elucidate the cause. On CT the lung is fully inflated. I placed her to waterseal today. Hope to remove the tube tomorrow. Vitor Leija MD Pager: [facility] [address] [place] [address], [address] [place] [address] Office:
[2024-04-26] MEDS: Insulin Lispro 100 UNIT/ML INSULN.PEN SC ×3 (11:38→21:22)
[2024-04-26] MEDS: Senna/Docusate Sodium 1 Tablet 2 TABLET PO ×2 (11:39→21:19)
[2024-04-26 12:00] LABS: Bedside Glucose 164 mg/dL (74-106)
--- NOTE | 2024-04-26 12:31 | PCM.PN.TICU ---
Objective Data Objective Data Vital Signs: Vital Signs Last response Temperature 37.7 C H 04/26/24 12:00 Temperature Source Core 04/26/24 12:00 Pulse Rate 106 H 04/26/24 12:00 Pulse Strength Normal (2+) 04/26/24 08:00 Respiratory Rate 23 H 04/26/24 12:00 Respiratory Effort Short of Breath, Accessory Muscle Use 04/26/24 08:00 Respiratory Depth Shallow 04/26/24 08:00 Respiratory Pattern Tachypnea 04/26/24 08:00 Blood Pressure 92/69 04/26/24 12:00 Blood Pressure Mean 76 04/26/24 12:00 Blood Pressure Source Monitor 04/26/24 12:00 Blood Pressure Position Semi-Fowlers 04/26/24 12:00 Blood Pressure Location Left Arm 04/26/24 12:00 Pulse Ox 96 04/26/24 12:00 Oxygen Delivery Method Room Air 04/26/24 12:00 I&O: I&O Last 24 Hours 04/25/24 04/26/24 04/26/24 23:59 11:59 23:59 Intake Total 1674.22 / 3694.22 2745 / 2745 Output Total 575 / 3025 1480 / 1480 Balance 1099.22 / 669.22 1265 / 1265 I&O: Total Stay 04/23/24 12:16 thru 04/26/24 11:05 Intake Total 28682.1033 Output Total 7305 Balance 67350.1033 Current Meds Ordered / Administered: Current meds ordered / Administered Generic Name Dose Route Start Last Admin Trade Name Freq PRN Reason Stop Dose Admin Acetaminophen 650 mg 04/23/24 19:30 04/26/24 08:11 Acetaminophen 325 Mg Tablet PO 650 mg Q4H PRN PRN Administration Fever, pain 1-10/10 Acetaminophen 650 mg 04/23/24 22:56 Acetaminophen 650 Mg Suppository RC Q4H PRN PRN Pain 1-10 or Fever Al Hydroxide/Mg Hydroxide 30 ml 04/23/24 15:57 Mag Hydrox/Al Hydrox/Simeth 30 Ml Udc PO Q6H PRN PRN Gastric Burning Albuterol Sulfate 2.5 mg 04/23/24 15:57 04/24/24 04:44 Albuterol 2.5 Mg/3 Ml Vial.Neb. INHALATION 2.5 mg Q2H PRN PRN Administration Dyspnea, wheezing Budesonide 0.5 mg 04/23/24 15:57 04/24/24 07:37 Budesonide Respules 0.5 Mg/2 Ml Ampul.Neb. INHALATION 0.5 mg BID.RT CONCEPCIÓN Administration Buspirone HCl 10 mg 04/23/24 22:00 04/26/24 05:44 Buspirone 5 Mg Tablet PO Not Given TID [place]CEPCI[place]N Enoxaparin Sodium 40 mg 04/24/24 10:00 04/26/24 08:09 Enoxaparin 40 Mg/0.4 Ml Syringe SC 40 mg DAILY CONCEPCI[place]N Administration Glucagon 1 mg 04/24/24 15:51 Glucagon 1 Mg/Ml Syringe IM X1 PRN Hypoglycemia Protocol Guaifenesin 10 ml 04/23/24 15:57 Guaifenesin 10 Ml Udc (200mg/10ml) PO Q4H PRN PRN COUGH Hydralazine HCl 10 mg 04/23/24 15:57 Hydralazine 20 Mg/Ml Vial IV Q4H PRN PRN SBP > 160 Protocol Pantoprazole Sodium 40 mg/ 110 mls @ 330 mls/hr 04/23/24 22:00 04/26/24 08:30 Sodium Chloride IV Infused Q12 CONCEPCI[place]N Infusion Piperacillin Sod/Tazobactam 50 mls @ 12.5 mls/hr 04/24/24 22:00 04/26/24 09:45 Sod 3.375 gm/ Sodium Chloride IV Infused Q8 [place]PCI[place]N Infusion Dextrose 250 mls @ 0 mls/hr 04/24/24 15:51 04/26/24 08:45 Dextrose 10%-Water IV Infused .Q0M PRN Infusion HYPOGLYCEMIA Protocol As Directed Norepinephrine Bitartrate 8 mg 250 mls @ 9.375 mls/hr 04/25/24 16:00 04/25/24 22:00 / Sodium Chloride CONT INF 0 mcg/min .[id number] CONCEPCI[place]N 0 mls/hr Titration Protocol 5 MCG/MIN Vancomycin IV-PHARMACY TO DOSE 500 mls @ 250 mls/hr 04/26/24 07:14 1 each/ Sodium Chloride IV X1 PRN Rx to Dose Protocol Vancomycin HCl 1,500 mg/ 530 mls @ 250 mls/hr 04/26/24 20:00 Sodium Chloride IV Q12H [place] Insulin Glargine 38 unit 04/26/24 10:00 04/26/24 08:31 Insulin Glargine-Yfgn 100 Unit/Ml Pen SC Not Given BID [facility] Insulin Human Lispro 0 unit 04/24/24 16:00 04/26/24 11:38 Insulin Lispro 100 Unit/Ml Insuln.Pen SC 2 units ACHS [facility] Administration Protocol Melatonin 3 mg 04/23/24 15:57 04/25/24 20:37 Melatonin 3 Mg Tablet PO 3 mg QHS PRN PRN Administration INSOMNIA Nystatin 1 applic 04/24/24 09:05 04/26/24 05:45 Nystatin Powder 15gm Bottle TOPICAL Not Given TID [facility] Protocol Ondansetron HCl 4 mg 04/23/24 15:57 04/23/24 16:36 Ondansetron 4 Mg/2 Ml Vial IV 4 mg Q8H PRN PRN Administration NAUSEA/VOMITING Oxycodone HCl 2.5 mg 04/24/24 09:02 04/26/24 01:58 Oxycodone 5 Mg Tablet PO 2.5 mg Q4H PRN PRN Administration Pain Score 4-10 Potassium Phos/Sodium Phos 1 packet 04/25/24 04:40 04/26/24 11:39 Na Biphos/Potassium Phosphate Packet PO 1 packet TIDAC [facility] Administration Psyllium Hydrophilic Mucilloid 1 packet 04/23/24 15:57 Psyllium 1 Packet PO DAILY PRN PRN Constipation Quetiapine Fumarate 100 mg 04/25/24 22:00 04/25/24 20:35 Quetiapine 100 Mg Tablet PO 100 mg QHS [facility] Administration Senna/Docusate Sodium 2 tablet 04/26/24 10:00 04/26/24 11:39 Senna/Docusate Sodium 1 Tablet PO 2 tablet BID [facility] Administration Sodium Chloride 10 - 40 ml 04/23/24 17:05 04/26/24 05:44 0.9 % Nacl (Sterile) Posiflush 10 Ml IV 40 ml UD PRN Administration Port access or dressing change Sodium Chloride 10 - 40 ml 04/23/24 17:05 0.9% Saline Lock 10 Ml Syringe IV UD PRN Multilumen/Ray Flush Vancomycin Protocol 1 lab 04/27/24 17:30 Vancomycin Trough/Random Due MC 04/27/24 21:30 DAILY [facility] Lab / Micro Data 04/26/24 05:40 04/26/24 05:40 Labs: Laboratory Results - last 24 hr 04/25/24 14:20: Sodium 139, Potassium 3.7, Chloride 114 H, Carbon Dioxide 21.0, Anion Gap 5, BUN 21 H, Creatinine 0.54 L, Estim Creat Clear Calc 122.57, Est GFR (MDRD) Af Amer 151, Est GFR (MDRD) Non-Af 125, BUN/Creatinine Ratio 38.8 H, Glucose 237 H, Calcium 7.3 L, Phosphorus 2.5 04/25/24 16:31: POC Glucose 227 H 04/25/24 20:45: POC Glucose 197 H 04/26/24 05:40: WBC 13.5 H, RBC 3.85 L, Hgb 10.6 L, Hct 30.8 L, MCV 80.0 L, MCH 27.5, MCHC 34.4, RDW Std Deviation 38.5, RDW Coeff of Cele 13.2, Plt Count 102 L, MPV 11.5, Immature Gran % (Auto) 5.000 H, Neut % (Auto) 72.4 H, Lymph % (Auto) 8.6 L, [place] % (Auto) 12.5 H, Eos % (Auto) 0.5, Baso % (Auto) 1.0, Absolute Neuts (auto) 9.8 H, Absolute Lymphs (auto) 1.17, Nucleated RBC % 0, Differential Comment SCANNED, Diff Path Review August, Sodium 140, Potassium 3.0 L, Chloride 114 H, Carbon Dioxide 23.0, Anion Gap 3 L, BUN 17, Creatinine 0.48 L, Estim Creat Clear Calc 136.86, Est GFR (MDRD) Af Amer 175, Est GFR (MDRD) Non-Af 145, BUN/Creatinine Ratio 35.7 H, Glucose 71 L, Calcium 7.8 L, Magnesium 1.9, Iron 19 L, TIBC 161 L, Iron Saturation 11.8 L, Total Bilirubin 0.60, Direct Bilirubin 0.32 H, AST 20, ALT 22, Alkaline Phosphatase 103, Lactate Dehydrogenase 227, Total Creatine Kinase 80, Total Protein 4.5 L, Albumin 1.4 L, Globulin 3.1, TSH 0.703, Free T4 1.08 04/26/24 07:56: POC Glucose 58 L 04/26/24 08:11: POC Glucose 59 L 04/26/24 08:36: POC Glucose 112 H 04/26/24 11:36: POC Glucose 164 H Micro: Microbiology 04/23/24 14:15 Blood Culture (Wb) - Left Hand Blood Culture - Final Escherichia coli 04/23/24 15:00 Blood Culture (Wb) - Central Line Blood Culture - Final Escherichia coli ABG Data ABG results: ABG 04/25/24 16:27 Specimen Type ART Sample Site L Brach pH 7.37 Bicarbonate Actual 15.9 L Total CO2 17 Base Excess -9 L O2 Saturation 95 O2 % 21.0 ABG pCO2 27.5 L ABG pO2 78 O2 Delivery Device Not entered Vent Mode Not entered Imaging Radiology Impression Chest X-Ray 04/26/24 05:50 IMPRESSION: 1. No pneumothorax or acute abnormality abnormality in the chest. 2. No interval change. Electronically Signed: Albert Smith MD at 10:50 EST , Chest/Abdomen/Pelvis CT 04/26/24 09:20 IMPRESSION: 1. Abnormal asymmetric contrast enhancement of the left consistent with pyelonephritis. Mild thickening of the glaser of the left renal pelvis suspicious for infection. These are unchanged. 2. Small midline umbilical hernia containing only fat. 3. Mild increase left posterior pleural effusion. New right posterior pleural effusion. 4. Small ascites in the left paracolic gutter is a new finding. Mild increase in ascites in the central pelvis. 5. Edema in the flanks of the abdomen. This is a new finding. 6. Diffuse fatty infiltration of liver is unchanged. Electronically Signed: Albert Smith MD at 10:43 EST , Assessment and Plan . Assessment and plan: 53 yo female smoker admitted 04/23/24 w/ DKA. Noted tachycardia and hypoactivity in the ED. CVC placed - c/b PTX requiring small-bore catheter placement for drainage. UA revealed glucosuria and ketonuria. No WBC - No CX obtained. She has developed significant fever - BCX reveal E coli. CT C/A/P reveals fatty liver, some e/o pyelonephritis. Current lab largely unremarkable - AG closed. Despite ABX, she remains febrile. She was TX to ICU, but NE has not been required, TTE reveals elevated PAP, markedly enlarged RV w/ reduced LVSF. 04/26/24 She remains ill, but looks better today clinically Still having high fever BCX - E coli - non-ESBL CT reviewed - (?) pyelonephritis Pleural catheter now on water seal - anticipate removal soon She remains on low dose NE for BP Trying hydrocortisone for fever/sepsis/hypotension EXAM GEN more animated and interactive today - does not look toxic today VS as above HEENT o/p clear NECK (+) JVD COR RRR CHEST CTA ABD soft EXT minimal edema SKIN w/d KIMBERLEY grossly NF ASSESSMENT 1. Severe sepsis 2. GNR bacteremia - E coli 3. (?) pyelonephritis 4. Iatrogenic right PTX - small-bore catheter placement 5. Tobacco use 6. PAH w/ RV dysfunction 7. H/O illicit drug abuse 8. Chronic psychiatric illness 9. Thrombocytopenia 10. Hypokalemia 11. Hypoalbuminemia 12. Hepatic steatosis TREATMENT PLAN -s/p volume expansion -IV ABX -IV hydrocortisone -right pleural catheter -sq insulin -VTE ppx -supplement K+ -needs further w/u of PAH once not acutely ill Critical Care Time: 50 min The entirety of this encounter was done via Telemedicine
[2024-04-26] MEDS: Hydrocortisone Sod Succinate 100 MG/2 ML Vial IV ×2 (13:51→21:20)
[2024-04-26] MEDS: Nystatin Powder 15gm Bottle 1 APPLIC TOPICAL (13:51)
[2024-04-26] MEDS: busPIRone 5 MG Tablet 10 MG PO ×2 (13:52→21:18)
[2024-04-26 16:27] LABS: Bedside Glucose 156 mg/dL (74-106)
[2024-04-26] MEDS: Vancomycin HCl 1,500 MG in 0.9% Normal Saline (500mL Bag) 500 ML 250 MG IV (19:43)
[2024-04-26] MEDS: QUEtiapine 100 MG Tablet PO (21:19)
[2024-04-26] MEDS: MELATONIN 3 MG TABLET PO (21:20)
[2024-04-26] MEDS: Insulin Glargine-YFGN 100 UNIT/ML Pen 20 UNIT SC (21:22)
[2024-04-26 21:47] LABS: Bedside Glucose 342 mg/dL (74-106)
[2024-04-26] MEDS: Albuterol 2.5 MG/3 ML VIAL.NEB. INHALATION (21:47)
[2024-04-26] MEDS: Gabapentin 300 MG Capsule PO (22:55)
[2024-04-27] VITALS (34 sets, daily range): BP systolic 68–132; BP diastolic 41–99; PULSE 64–112; RESP 10–25; TEMP 35.2–36.7; O2SAT 93–98; BMI 27.3
[2024-04-27] MEDS: 0.9 % NaCl (Sterile) Posiflush 10 mL IV (04:18)
[2024-04-27] MEDS: Acetaminophen 325 MG Tablet 650 MG PO (04:18)
[2024-04-27 04:30] LABS: Hematocrit 36.6 % (37-47); Hemoglobin 12.6 g/dL (12.0-15.0); Mean Corp Hgb Conc 34.4 g/dL (32-36); Mean Corpuscular Hgb 27.5 pg (27.0-32.0); Mean Corpuscular Volume 79.9 fL (81-99); Mean Platelet Vol. 11.2 fl (6.2-12.0); POSITIVE COUNT YES; POSITIVE MORPHOLOGY YES; Platelet Count 151 K/mm3 (150-450); RBC Distribution Width CV 13.5 % (11.6-14.6); Red Blood Count 4.58 M/mm3 (4.2-5.4); White Blood Count 20.6 K/mm3 (4.4-11.0)
[2024-04-27 04:34] LABS: Differential Indicated MANUAL DIFF
[2024-04-27 04:46] LABS: Anion Gap 4 (5-15); BUN 17 mg/dL (7-18); Calcium,Total 7.9 mg/dL (8.5-10.1); Chloride 112 mmol/L (98-107); Creatinine, Serum 0.47 mg/dL (0.55-1.02); EST Glomerular Filtration Rate 146 mL/min (>60); Est Glom Filt Rate - Afr Amer 177 mL/min (>60); Estimated Creatinine Clearance 139.86 ml/min; Glucose 374 mg/dL (74-106); Potassium 3.9 mmol/L (3.5-5.1); Sodium Level 139 mmol/L (136-145)
[2024-04-27 04:53] LABS: Lymphocyte 11 % (19-41); Metamyelocyte 1 % (0-1); Monocyte 6 % (0-10); Myelocyte 1 % (0-0); Neutrophil-Band 9 % (0-5); Neutrophil-Segmented 72 % (47-70); Total Cells Counted 100 (MANUAL DIFF)
[2024-04-27 04:54] LABS: Platelet Estimate ADEQUATE (ADEQ); Red Cell Morphology NORM C+C NORMAL (NORM C&C)
[2024-04-27 04:55] LABS: Eosinophils% 20.6 % (0-5)
[2024-04-27 04:56] LABS: Absolute Lymphocyte Count 2.27 X10^3/uL (0.83-4.51); Absolute Neutrophil Count 16.7 X10^3/uL (2.0-7.7); Atypical Lymphocyte 2+ %
[2024-04-27] MEDS: Hydrocortisone Sod Succinate 100 MG/2 ML Vial IV (05:19)
[2024-04-27] MEDS: busPIRone 5 MG Tablet 10 MG PO ×3 (05:19→20:21)
[2024-04-27] MEDS: Nystatin Powder 15gm Bottle 1 APPLIC TOPICAL ×2 (05:20→20:25)
[2024-04-27] MEDS: Piperacil/Tazobactam 3.375 GM in 0.9% Normal Saline (50mL MB+) 50 ML IV ×3 (05:20→20:23)
[2024-04-27] MEDS: Insulin Lispro 100 UNIT/ML INSULN.PEN SC ×4 (06:49→20:26)
[2024-04-27 07:08] LABS: Bedside Glucose 340 mg/dL (74-106)
--- NOTE | 2024-04-27 07:10 | RAD_ITS ---
INDICATION: chest tube EXAMINATION/TECHNIQUE: X-RAY - XR Chest 1 View COMPARISON: Prior study dated: 04/26/2024. FINDINGS: LINES/DEVICES: Right-sided PICC line with its tip in the distal superior vena cava. Telemetry wires overlying the chest. LUNGS: No consolidation, edema or effusion. No pneumothorax. MEDIASTINUM AND CARDIOVASCULAR STRUCTURES: Cardiac silhouette not enlarged. Central airways and mediastinal contour are unremarkable. BONES AND SOFT TISSUES: Unremarkable. RAD/Chest 1 View (Portable) IMPRESSION: No radiographic evidence of acute cardiopulmonary disease. Electronically Signed: Mendoza Madison MD at 9:55 EST ,
[2024-04-27] MEDS: Na Biphos/Potassium Phosphate PACKET 1 PACKET PO ×3 (07:40→16:18)
[2024-04-27] MEDS: Senna/Docusate Sodium 1 Tablet 2 TABLET PO ×2 (07:41→20:24)
[2024-04-27] MEDS: Vancomycin HCl 1,500 MG in 0.9% Normal Saline (500mL Bag) 500 ML 250 MG IV ×2 (08:00→21:17)
--- NOTE | 2024-04-27 08:30 | PCM.PN.INT ---
Assessment & Plan Assessment/Plan (1) Pneumothorax on right: PLAN: Plan RECOMMENDATIONS: 1. Continue antimicrobial therapy. 2. Attempt to minimize sedating medications as feasible. 3. Okay to remove chest tube. Obtain follow-up chest x-ray this afternoon. 4. Will begin to wean stress dose steroids tomorrow. 5. Continue appropriate DVT prophylaxis. 6. Encourage incentive spirometer use and mobilize patient as tolerated. IMPRESSIONS: 1. Septic shock The patient presented with gram-negative bacteremia likely related to underlying urinary tract source of infection with associated pyelonephritis. The patient appears to have stabilized from a clinical perspective. She has been weaned from vasopressor support as of this morning. Plan to continue antimicrobial therapy as ordered. If the patient remains hemodynamically stable over the next 24 hours, will start to wean stress dose steroids tomorrow. 2. Diabetic ketoacidosis Resolved. Continue basal and sliding scale insulin coverage. 3. Iatrogenic pneumothorax Resolved. Chest tube to be removed this morning. Plan to obtain follow-up chest x-ray this afternoon. 4. Acute kidney injury Resolved. Most likely prerenal in etiology in the setting and #1. Creatinine has normalized with volume expansion and stabilization of hemodynamics. No indication for renal replacement therapy. 5. History of chronic pain/COPD/GERD/depression/anxiety/pulmonary hypertension with RV dysfunction Complicates care, management, recovery and prognosis. Continue supportive measures as noted above. Physical therapy to work with the patient. This note was generated with [employer] dictation software. It may contain incorrect words, spelling, and punctuation that were not noted in checking the note before signing. Subjective Subjective The patient was seen and examined at the bedside this morning. Events from the last 24 hours have been reviewed. The patient is currently afebrile, hemodynamically stable and maintaining appropriate oxygen saturations on room air. The patient was weaned off of Levophed this morning. She does report ongoing generalized pain on account of her fibromyalgia. She is documented to be overall net positive a liter for the hospitalization. Chest x-ray showed no evidence of pneumothorax. White blood cell count remains elevated at 20,000. 9% band neutrophils were noted on differential. Creatinine is within normal limits. Objective Data Objective Data The patient's most recent lab work, culture data and imaging studies have all been personally reviewed. Surface echocardiogram demonstrated normal LV size and function with an ejection fraction of 60%. There was evidence of moderate global RV systolic dysfunction with a severely dilated right ventricle and pulmonary artery systolic pressure estimated to be 40 mmHg. Blood cultures are positive for E. coli. Vital Signs: Vital Signs Temp Pulse Resp BP Pulse Ox O2 Del Method 97.6 F L 103 H 14 102/65 97 Room Air 04/27/24 08:00 04/27/24 08:00 04/27/24 08:00 04/27/24 08:15 04/27/24 08:00 04/27/24 08:00 Oxygen Delivery Method Room Air Weight: 164 lb 3.91 oz Body Mass Index (BMI) 27.3 Intake & Output: Intake and Output for Last 24 Hours 04/25/24 04/26/24 04/27/24 23:59 23:59 23:59 Intake Total 3694.22 / 3694.22 3635 / 3635 113.45 / 113.45 Output Total 2175 / 3025 2185 / 2185 2150 / 2150 Balance 1519.22 / 669.22 1450 / 1450 -2036.55 / -2036.55 Lab / Micro Data Attestation: I reviewed the patient's lab results. 04/27/24 04:20 04/27/24 04:20 Labs: Laboratory Results - last 24 hr 04/26/24 05:40: Magnesium 1.9, Iron 19 L, TIBC 161 L, Iron Saturation 11.8 L, Total Bilirubin 0.60, Direct Bilirubin 0.32 H, AST 20, ALT 22, Alkaline Phosphatase 103, Lactate Dehydrogenase 227, Total Creatine Kinase 80, Total Protein 4.5 L, Albumin 1.4 L, Globulin 3.1, TSH 0.703, Free T4 1.08 04/26/24 08:11: POC Glucose 59 L 04/26/24 08:36: POC Glucose 112 H 04/26/24 11:36: POC Glucose 164 H 04/26/24 16:02: POC Glucose 156 H 04/26/24 21:21: POC Glucose 342 H 04/27/24 04:20: WBC 20.6 H, RBC 4.58, Hgb 12.6, Hct 36.6 L, MCV 79.9 L, MCH 27.5, MCHC 34.4, RDW Std Deviation 39.0, RDW Coeff of Cele 13.5, Plt Count 151, MPV 11.2, Neut % (Auto) Not Reportable, Eos % (Auto) 20.6 H, Absolute Neuts (auto) 16.7 H, Absolute Lymphs (auto) 2.27, Total Counted 100, Neutrophils % (Manual) 72 H, Band Neutrophils % 9 H, Lymphocytes % (Manual) 11 L, Monocytes % (Manual) 6, Metamyelocytes % 1, Myelocytes % 1 H, Diff Path Review May foll, Atypical Lymphocytes 2+, Platelet Estimate ADEQUATE, RBC Morphology NORM C+C, Sodium 139, Potassium 3.9, Chloride 112 H, Carbon Dioxide 23.0, Anion Gap 4 L, BUN 17, Creatinine 0.47 L, Estim Creat Clear Calc 139.86, Est GFR (MDRD) Af Amer 177, Est GFR (MDRD) Non-Af 146, BUN/Creatinine Ratio 36.0 H, Glucose 374 H, Calcium 7.9 L 04/27/24 06:48: POC Glucose 340 H Micro: Microbiology 04/23/24 14:15 Blood Culture (Wb) - Left Hand Blood Culture - Final Escherichia coli 04/23/24 15:00 Blood Culture (Wb) - Central Line Blood Culture - Final Escherichia coli 04/23/24 16:35 Wound - Nose Skin and Soft Tissue MRSA/MSSA (PCR - Final Meth. resistant Staph. aureus 04/23/24 16:15 Mucosa - Nasopharyngeal Respiratory Panel (PCR) - Final 04/23/24 16:35 Urine Catheter - Matos Legionella Antigen - Final 04/23/24 16:35 Urine Catheter - Matos Streptococcus pneumoniae Antigen (M - Final Radiography Diagnostic Testing: Radiology Impression Chest X-Ray 04/26/24 05:50 IMPRESSION: 1. No pneumothorax or acute abnormality abnormality in the chest. 2. No interval change. Electronically Signed: Albert Smith MD at 10:50 EST , Chest/Abdomen/Pelvis CT 04/26/24 09:20 IMPRESSION: 1. Abnormal asymmetric contrast enhancement of the left consistent with pyelonephritis. Mild thickening of the glaser of the left renal pelvis suspicious for infection. These are unchanged. 2. Small midline umbilical hernia containing only fat. 3. Mild increase left posterior pleural effusion. New right posterior pleural effusion. 4. Small ascites in the left paracolic gutter is a new finding. Mild increase in ascites in the central pelvis. 5. Edema in the flanks of the abdomen. This is a new finding. 6. Diffuse fatty infiltration of liver is unchanged. Electronically Signed: Albert Smith MD at 10:43 EST , Social Homelessness:: Sheltered Physical Exam Const alert and no apparent distress Constitutional Narrative: Resting comfortably in bed. General Appearance: cooperative HEENT normocephalic, head/scalp atraumatic and moist oral mucous membranes Eyes PERRL, EOMs intact bilaterally and conjunctivae normal Neck supple General: trachea midline Chest inspection of chest normal Chest Narrative: No airleak noted in the Pleur-evac. Chest: chest tube right Resp normal respiratory effort Auscultation: Negative for rales, rhonchi or wheezes Cardio regular rate and regular rhythm GI normal to inspection, nondistended, normoactive bowel sounds Extremity no clubbing, cyanosis or edema Skin no rashes or lesions noted Neuro CN's II-XII intact bilaterally, moves all extremities and no focal motor deficits Psych cooperative and affect normal Charges/Coding Visit Charges Inpatient E&M: 05475 Subs Hosp L3
[2024-04-27 09:40] LABS: Pathologist Review Reviewed
[2024-04-27 09:41] LABS: Pathologist Review Reviewed
--- NOTE | 2024-04-27 10:10 | PN.SURG_ITS ---
Subjective Subjective Patient has no new complaints. Does not describe any shortness of breath Objective Data Objective Data Vital Signs: Vital Signs Temp Pulse Resp BP Pulse Ox O2 Del Method 97.6 F L 99 19 H 108/52 L 96 Room Air 04/27/24 09:00 04/27/24 09:00 04/27/24 09:00 04/27/24 09:15 04/27/24 09:00 04/27/24 09:00 Oxygen Delivery Method Room Air Weight: 164 lb 3.91 oz Body Mass Index (BMI) 27.3 Intake & Output: Intake and Output for Last 24 Hours 04/25/24 04/26/24 04/27/24 23:59 23:59 23:59 Intake Total 3694.22 / 3694.22 3635 / 3635 163.45 / 163.45 Output Total 2175 / 3025 2185 / 2185 2150 / 2150 Balance 1519.22 / 669.22 1450 / 1450 -1985.55 / -55 Lab / Micro Data 04/27/24 04:20 04/27/24 04:20 Labs: Laboratory Results - last 24 hr 04/23/24 12:45: Diff Path Review Reviewed 04/24/24 04:36: Diff Path Review Reviewed 04/26/24 11:36: POC Glucose 164 H 04/26/24 16:02: POC Glucose 156 H 04/26/24 21:21: POC Glucose 342 H 04/27/24 04:20: WBC 20.6 H, RBC 4.58, Hgb 12.6, Hct 36.6 L, MCV 79.9 L, MCH 27.5, MCHC 34.4, RDW Std Deviation 39.0, RDW Coeff of Cele 13.5, Plt Count 151, MPV 11.2, Neut % (Auto) Not Reportable, Eos % (Auto) 20.6 H, Absolute Neuts (auto) 16.7 H, Absolute Lymphs (auto) 2.27, Total Counted 100, Neutrophils % (Manual) 72 H, Band Neutrophils % 9 H, Lymphocytes % (Manual) 11 L, Monocytes % (Manual) 6, Metamyelocytes % 1, Myelocytes % 1 H, Diff Path Review May foll, Atypical Lymphocytes 2+, Platelet Estimate ADEQUATE, RBC Morphology NORM C+C, Sodium 139, Potassium 3.9, Chloride 112 H, Carbon Dioxide 23.0, Anion Gap 4 L, BUN 17, Creatinine 0.47 L, Estim Creat Clear Calc 139.86, Est GFR (MDRD) Af Amer 177, Est GFR (MDRD) Non-Af 146, BUN/Creatinine Ratio 36.0 H, Glucose 374 H, C alcium 7.9 L 04/27/24 06:48: POC Glucose 340 H Micro: Microbiology 04/23/24 14:15 Blood Culture (Wb) - Left Hand Blood Culture - Final Escherichia coli 04/23/24 15:00 Blood Culture (Wb) - Central Line Blood Culture - Final Escherichia coli 04/23/24 16:35 Wound - Nose Skin and Soft Tissue MRSA/MSSA (PCR - Final Meth. resistant Staph. aureus 04/23/24 16:15 Mucosa - Nasopharyngeal Respiratory Panel (PCR) - Final 04/23/24 16:35 Urine Catheter - Matos Legionella Antigen - Final 04/23/24 16:35 Urine Catheter - Matos Streptococcus pneumoniae Antigen (M - Final Radiography Diagnostic Testing: Radiology Impression Chest X-Ray 04/26/24 05:50 IMPRESSION: 1. No pneumothorax or acute abnormality abnormality in the chest. 2. No interval change. Electronically Signed: Albert Smith MD at 10:50 EST , Chest/Abdomen/Pelvis CT 04/26/24 09:20 IMPRESSION: 1. Abnormal asymmetric contrast enhancement of the left consistent with pyelonephritis. Mild thickening of the glaser of the left renal pelvis suspicious for infection. These are unchanged. 2. Small midline umbilical hernia containing only fat. 3. Mild increase left posterior pleural effusion. New right posterior pleural effusion. 4. Small ascites in the left paracolic gutter is a new finding. Mild increase in ascites in the central pelvis. 5. Edema in the flanks of the abdomen. This is a new finding. 6. Diffuse fatty infiltration of liver is unchanged. Electronically Signed: Albert Smith MD at 10:43 EST , Chest X-Ray 04/27/24 07:10 IMPRESSION: No radiographic evidence of acute cardiopulmonary disease. Electronically Signed: Mendoza Madison MD at 9:55 EST , Social Homelessness:: Sheltered Physical Exam Const oriented x3 and no apparent distress Resp normal respiratory effort Cardio regular rate and regular rhythm GI soft to palpation and non-tender Assessment & Plan Assessment/Plan (1) Pneumothorax on right: PLAN: Patient is doing well this morning and her white count is coming down. Chest x-ray this morning reveals no pneumothorax on waterseal. I removed her chest tube this morning. Repeat x-ray in 4 hours. Vitor Leija MD Pager: [facility] [address] [place] [address], [address] [place] [address] Office:
--- NOTE | 2024-04-27 10:43 | CASEMGMT ---
Social Work- SW participated in interdisciplinary rounds on pt. Pt reports that she plans to return to [facility] [place] at d/c. SW remains available to follow. EDWARD Fernández
--- NOTE | 2024-04-27 10:43 | PCM.PN.HOSP ---
Reason for Visit Reason for Visit: Diagnoses Type 1 diabetes mellitus with ketoacidosis without coma (04/23/24) Pneumothorax, unspecified (04/23/24) Acute kidney failure, unspecified (04/23/24) Systemic inflammatory response syndrome (SIRS) of non-infectious origin without acute organ dysfunction (04/23/24) Subjective Subjective Patient awake and alert, reports she has fibromyalgia and has some generalized pain. Also has some left flank pain. Aside from that reports she is feeling slightly better. No shortness of breath. Objective Data Objective Data Vital Signs: Vital Signs Temp Pulse Resp BP Pulse Ox O2 Del Method 97.6 F L 99 19 H 108/52 L 96 Room Air 04/27/24 09:00 04/27/24 09:00 04/27/24 09:00 04/27/24 09:15 04/27/24 09:00 04/27/24 09:00 Oxygen Delivery Method Room Air Weight: 74.5 kg Body Mass Index (BMI) 27.3 Intake & Output: Intake and Output for Last 24 Hours 04/25/24 04/26/24 04/27/24 23:59 23:59 23:59 Intake Total 3694.22 / 3694.22 3635 / 3635 693.45 / 693.45 Output Total 2175 / 3025 2185 / 2185 2150 / 2150 Balance 1519.22 / 669.22 1450 / 1450 -1456.55 / -1456.55 Lab / Micro Data 04/27/24 04:20 04/27/24 04:20 Labs: Laboratory Results - last 24 hr 04/23/24 12:45: Diff Path Review Reviewed 04/24/24 04:36: Diff Path Review Reviewed 04/26/24 11:36: POC Glucose 164 H 04/26/24 16:02: POC Glucose 156 H 04/26/24 21:21: POC Glucose 342 H 04/27/24 04:20: WBC 20.6 H, RBC 4.58, Hgb 12.6, Hct 36.6 L, MCV 79.9 L, MCH 27.5, MCHC 34.4, RDW Std Deviation 39.0, RDW Coeff of Cele 13.5, Plt Count 151, MPV 11.2, Neut % (Auto) Not Reportable, Eos % (Auto) 20.6 H, Absolute Neuts (auto) 16.7 H, Absolute Lymphs (auto) 2.27, Total Counted 100, Neutrophils % (Manual) 72 H, Band Neutrophils % 9 H, Lymphocytes % (Manual) 11 L, Monocytes % (Manual) 6, Metamyelocytes % 1, Myelocytes % 1 H, Diff Path Review May foll, Atypical Lymphocytes 2+, Platelet Estimate ADEQUATE, RBC Morphology NORM C+C, Sodium 139, Potassium 3.9, Chloride 112 H, Carbon Dioxide 23.0, Anion Gap 4 L, BUN 17, Creatinine 0.47 L, Estim Creat Clear Calc 139.86, Est GFR (MDRD) Af Amer 177, Est GFR (MDRD) Non-Af 146, BUN/Creatinine Ratio 36.0 H, Glucose 374 H, Calcium 7.9 L 04/27/24 06:48: POC Glucose 340 H Micro: Microbiology 04/23/24 14:15 Blood Culture (Wb) - Left Hand Blood Culture - Final Escherichia coli 04/23/24 15:00 Blood Culture (Wb) - Central Line Blood Culture - Final Escherichia coli 04/23/24 16:35 Wound - Nose Skin and Soft Tissue MRSA/MSSA (PCR - Final Meth. resistant Staph. aureus 04/23/24 16:15 Mucosa - Nasopharyngeal Respiratory Panel (PCR) - Final 04/23/24 16:35 Urine Catheter - Matos Legionella Antigen - Final 04/23/24 16:35 Urine Catheter - Matos Streptococcus pneumoniae Antigen (M - Final Radiography Diagnostic Testing: Radiology Impression Chest X-Ray 04/26/24 05:50 IMPRESSION: 1. No pneumothorax or acute abnormality abnormality in the chest. 2. No interval change. Electronically Signed: Albert Smith MD at 10:50 EST , Chest/Abdomen/Pelvis CT 04/26/24 09:20 IMPRESSION: 1. Abnormal asymmetric contrast enhancement of the left consistent with pyelonephritis. Mild thickening of the glaser of the left renal pelvis suspicious for infection. These are unchanged. 2. Small midline umbilical hernia containing only fat. 3. Mild increase left posterior pleural effusion. New right posterior pleural effusion. 4. Small ascites in the left paracolic gutter is a new finding. Mild increase in ascites in the central pelvis. 5. Edema in the flanks of the abdomen. This is a new finding. 6. Diffuse fatty infiltration of liver is unchanged. Electronically Signed: Albert Smith MD at 10:43 EST , Chest X-Ray 04/27/24 07:10 IMPRESSION: No radiographic evidence of acute cardiopulmonary disease. Electronically Signed: Mendoza Madison MD at 9:55 EST , Social Homelessness:: Sheltered Physical Exam Narrative General: Awake and alert, answering questions appropriately HEENT: Atraumatic, normocephalic Eyes: Anicteric, normal conjunctiva, extraocular movements grossly intact Neck: Supple Respiratory: Tachypnea improved, no increased work of breathing today Cardiovascular: Regular rate and rhythm GI: Soft, nontender, no rebound, guarding, rigidity Extremities: No significant pitting edema Musculoskeletal: Moving all extremities Neuro: No overt focal neurological deficits Skin: Cheeks are pink Psych: Cooperative Assessment & Plan Assessment/Plan (1) DKA, type 1: PLAN: Plan # Multifocal left-sided pyelonephritis with E. coli bacteremia -Tmax of 104 overnight with patient tachypneic and tachycardic -White blood cell count 23 on presentation with broad-spectrum antibiotics as 15 -Additionally Pro-Zach greater than 20 -UA unremarkable -Chest x-ray did not report any acute disease -Urine antigens negative -Base respiratory panel negative -Currently 2 out of 2 blood cultures with gram-negative rods (initially reported out as gram positive rods but has been changed) -Continue broad-spectrum antibiotics at this time -Patient does reportedly have a substance use history and well currently reporting no use will obtain echocardiogram given unclear source to assess for any vegetations -Additionally given patient's complaints only being mild cough and some left-sided flank pain she had a CT of chest abdomen and pelvis with contrast which showed multifocal pyelonephritis, awaiting cultures -04/25: Patient still intermittently spiking fevers however source identified as multifocal pyelonephritis and she has been treated with vancomycin and Zosyn pending cultures. First blood culture growing E. coli and it is sensitive to Zosyn. Will discontinue vancomycin. If she continues having elevated fevers may need to rescan kidneys to assess for any abscess formation however no abscesses noted on the CT abdomen and pelvis with contrast from 04/24 and fevers are slowly downtrending white blood cell count is improving -04/26: Patient continues to spike temperatures, she remains on Zosyn but has been spiking temperatures since vancomycin was discontinued so we we will resume this pending repeat cultures, additionally given vague respiratory as well as abdominal complaints will reimage. May need to consult infectious disease tomorrow -04/27: Patient has no further fevers since yesterday, doing well on vancomycin and Zosyn, repeat cultures pending. Had spiked temperature when vancomycin was discontinued despite still being on Zosyn, unclear if this is coincidental or not but is doing better off of it. White blood cell count did increase but hydrocortisone started by narcotics investigator over the weekend. Continue Zosyn and await cultures. Spoke with narcotics investigator, stress dose steroids to be weaned tomorrow if she remains stable. Patient has been off Levophed # Right-sided pneumothorax?resolved -Patient was slightly tachypneic and slightly tachycardic however she was febrile which would have accounted for both of these things and was not reporting any overt shortness of breath -Earlier chest x-rays had not called pneumothorax however CT of the chest/abdomen/pelvis obtained for finding source of infection revealed right-sided pneumothorax -Pulm and surgery contacted and patient had chest tube placed -04/25: Surgery managing chest tube, repeat chest x-ray this a.m with no noted pneumothorax however given patient's vitals they will be maintained today -04/26: Repeat chest x-ray this a.m., surgery following for chest tube management -04/27: Chest tube pulled, chest x-ray with no reaccumulating pneumothorax #DKA in setting of chronic type 1 diabetes, DKA now resolved -Serum glucose in ED 475, anion gap 21 -Urine ketones 50 -Serum acetone moderate -Admit to intensive care unit -Patient made n.p.o. and started on insulin drip -Aggressive fluid hydration -Glucose checks and DKA protocol -Trend BMP -A1c 11.7 -Presently gap is closed and appears patient is out of DKA. Of note patient reports that her insulin was taken by her ex- and that is why she was out of it and came in DKA -Patient transition to long-acting and sliding scale, tolerating p.o. -04/25: Gap remains closed but glucose still elevated, will increase long-acting insulin -04/26: Patient's glucose on BMP only 71 and had difficulty increasing with orange juice and required D10, long-acting insulin was held -04/27: Glucose uptrending again now the patient clinically improving and she is on hydrocortisone, increase glargine again, will likely need further titration, stress dose steroids to begin weaning tomorrow #?Hx hepatitis C -04/27: Patient reports history of hepatitis C and was never treated and does not believe she is cleared this. She would be interested in outpatient referral for treatment if she remains infected. Hepatitis panel and viral load ordered. Patient will need referral to GI or ID on discharge # KASSY -On admission creatinine 1.43 with a baseline around 0.5-0.7 -Today creatinine 0.68, improved with IV fluids -04/25: Kidney function continues to improve -04/26: Kidney function remained stable today -04/27: Continue to avoid nephrotoxic agents, BUN 17 and creatinine 0.47 today #Hypokalemia -Replace -Repeat in the AM -04/26: Potassium 3, will replace -04/27: Repeat potassium this a.m. 3.9 Chronic medical problems: # COPD -Continue budesonide therapy and as needed albuterol -04/25: Patient 96% on room air, continue current management -04/26: Remains 98% on room air, monitoring respiratory status #GERD -Continue PPI #Depression/anxiety, ? History of bipolar disorder -Continue home medications though it is unclear exactly what those are as patient's fill history and current medication list are not necessarily concurrent -Do not see where she has recently filled hydroxyzine so we will discontinue this as it may be contributing to her increased lethargy -04/27: Patient reported being on Seroquel and Abilify however does not appear she was feeling Abilify so her Seroquel was adjusted to her home dose and Abilify has been held. If patient remains stable and alert we will need to add back her home antidepression medication, doxepin #DVT ppx: Lovenox subcu Kandace Arias MD Time spent in the patient's overall evaluation, decision-making process, review of diagnostic data, adjustment of management, discussion with other providers, nursing and ancillary staff involved in patient's care documentation, 35 Minutes Charges/Coding Visit Charges Inpatient E&M: 49724 Subs Hosp L2
[2024-04-27] MEDS: Insulin Glargine-YFGN 100 UNIT/ML Pen 20 UNIT SC (11:01)
[2024-04-27] MEDS: Enoxaparin 40 MG/0.4 ML Syringe SC (11:02)
[2024-04-27] MEDS: oxyCODONE 5 MG Tablet 2.5 MG PO ×2 (11:07→18:57)
[2024-04-27 11:24] LABS: Bedside Glucose 356 mg/dL (74-106)
[2024-04-27] MEDS: Gabapentin 300 MG Capsule PO ×2 (13:33→20:21)
[2024-04-27 13:35] LABS: Pathologist Review Reviewed
[2024-04-27 13:40] LABS: Pathologist Review Reviewed
--- NOTE | 2024-04-27 14:00 | RAD_ITS ---
INDICATION: removal of chest tube EXAMINATION/TECHNIQUE: X-RAY - XR Chest 1 View COMPARISON: Previous of the same date done earlier. FINDINGS: LINES/DEVICES: Right lateral chest tube has been removed. Right central venous catheter in stable position. LUNGS: No consolidation, edema or effusion. No pneumothorax. MEDIASTINUM AND CARDIOVASCULAR STRUCTURES: Cardiac silhouette not enlarged. Central airways and mediastinal contour are unremarkable. BONES AND SOFT TISSUES: Unremarkable. RAD/Chest 1 View (Portable) IMPRESSION: 1. Status post removal of right chest tube. 2. No evidence of pneumothorax. Electronically Signed: Mendoza Madison MD at 14:36 EST ,
[2024-04-27 16:37] LABS: Bedside Glucose 429 mg/dL (74-106)
[2024-04-27] MEDS: MELATONIN 3 MG TABLET PO (20:21)
[2024-04-27] MEDS: QUEtiapine 100 MG Tablet PO (20:23)
[2024-04-27] MEDS: Insulin Glargine-YFGN 100 UNIT/ML Pen 30 UNIT SC (20:25)
[2024-04-27] MEDS: Pantoprazole Sodium 40 MG Tablet PO (20:32)
[2024-04-27 20:38] LABS: Vancomycin, Trough Level 18.3 ug/mL (5.0-15.0)
[2024-04-27 20:49] LABS: Bedside Glucose 358 mg/dL (74-106)
--- NOTE | 2024-04-27 21:12 | PCM.RX.CS ---
Consult Antibiotic Management Pharmacy has been consulted to manage selected antibiotic: Vancomycin Type of Intervention Type of Consult: Follow-up Labs Labs: Sodium 139 mmol/L (136-145) 04/27/24 04:20 Potassium 3.9 mmol/L (3.5-5.1) 04/27/24 04:20 Chloride 112 mmol/L (98-107) H 04/27/24 04:20 Carbon Dioxide 23.0 mmol/L (21.0-32.0) 04/27/24 04:20 Anion Gap 4 (5-15) L 04/27/24 04:20 BUN 17 mg/dL (7-18) 04/27/24 04:20 Creatinine 0.47 mg/dL (0.55-1.02) L 04/27/24 04:20 Est GFR (MDRD) Af Amer 177 mL/min (>60) 04/27/24 04:20 Est GFR (MDRD) Non-Af 146 mL/min (>60) 04/27/24 04:20 BUN/Creatinine Ratio 36.0 RATIO (10-20) H 04/27/24 04:20 Glucose 374 mg/dL (74-106) H 04/27/24 04:20 Vancomycin Trough 18.3 ug/mL (5.0-15.0) H 04/27/24 20:15 Microbiology Microbiology: Microbiology 04/23/24 14:15 Blood Culture (Wb) - Left Hand Blood Culture - Final Escherichia coli 04/23/24 15:00 Blood Culture (Wb) - Central Line Blood Culture - Final Escherichia coli 04/23/24 16:35 Wound - Nose Skin and Soft Tissue MRSA/MSSA (PCR - Final Meth. resistant Staph. aureus 04/23/24 16:15 Mucosa - Nasopharyngeal Respiratory Panel (PCR) - Final 04/23/24 16:35 Urine Catheter - Matos Legionella Antigen - Final 04/23/24 16:35 Urine Catheter - Matos Streptococcus pneumoniae Antigen (M - Final Goal Trough Goal Trough: 15-20 mcg/mL Pharmacy Plan for Drug Dosing Pharmacy Plan for Drug Dosing: VANCOMYCIN LEVEL RECEIVED Current Vancomycin Dose: 1500mg q12h (08,20) Number of Doses Received: x1 loading dose, x2 1500mg doses Vancomycin Level: 18.3 Hours Since Last Dose: 12 hours Renal Function: SrCr 0.47 Renal Function Trend: stable Lab/Micro: Vancomycin Plan/Comments: resulted trough of 18.3 is within the ordered goal trough range of 15-20. recommend continuing current dose of 1500mg q12h and checking a trough prior to the 4th dose Pending Level: 04/29/23 at 0730 Pharmacy Service will continue to monitor and adjust dosing as required. Follow-Up Labs Follow-Up Labs: Trough: Vancomycin (04/29/24 @ 0730)
[2024-04-28] VITALS (13 sets, daily range): BP systolic 91–126; BP diastolic 48–102; PULSE 72–95; RESP 12–25; TEMP 35.8–37.6; O2SAT 95–98; BMI 28.8
[2024-04-28] MEDS: Acetaminophen 325 MG Tablet 650 MG PO ×3 (03:49→21:09)
[2024-04-28] MEDS: Gabapentin 300 MG Capsule PO ×3 (05:14→21:10)
[2024-04-28] MEDS: busPIRone 5 MG Tablet 10 MG PO ×3 (05:14→20:47)
[2024-04-28] MEDS: Nystatin Powder 15gm Bottle 1 APPLIC TOPICAL ×2 (05:14→20:48)
[2024-04-28] MEDS: Piperacil/Tazobactam 3.375 GM in 0.9% Normal Saline (50mL MB+) 50 ML IV ×3 (05:15→21:51)
[2024-04-28] MEDS: 0.9 % NaCl (Sterile) Posiflush 10 mL IV ×2 (05:15→21:16)
[2024-04-28 05:40] LABS: Hematocrit 30.9 % (37-47); Hemoglobin 10.4 g/dL (12.0-15.0); Mean Corp Hgb Conc 33.7 g/dL (32-36); Mean Corpuscular Hgb 27.4 pg (27.0-32.0); Mean Corpuscular Volume 81.3 fL (81-99); Mean Platelet Vol. 10.5 fl (6.2-12.0); POSITIVE COUNT YES; POSITIVE MORPHOLOGY YES; Platelet Count 203 K/mm3 (150-450); RBC Distribution Width CV 13.7 % (11.6-14.6); RBC Distribution Width SD 40.8 fl (35.1-43.9); White Blood Count 19.7 K/mm3 (4.4-11.0)
[2024-04-28 06:01] LABS: Anion Gap 2 (5-15); BUN 19 mg/dL (7-18); BUN/Creat Ratio 37.9 RATIO (10-20); Chloride 109 mmol/L (98-107); EST Glomerular Filtration Rate 137 mL/min (>60); Est Glom Filt Rate - Afr Amer 165 mL/min (>60); Estimated Creatinine Clearance 134.84 ml/min; Glucose 236 mg/dL (74-106); Potassium 3.1 mmol/L (3.5-5.1); Sodium Level 138 mmol/L (136-145)
[2024-04-28 06:05] LABS: Differential Indicated MANUAL DIFF
[2024-04-28 07:24] LABS: Eosinophil 1 % (0-5); Lymphocyte 17 % (19-41); Metamyelocyte 11 % (0-1); Myelocyte 2 % (0-0); Neutrophil-Band 4 % (0-5); Promyelocyte 1 % (0-0); Total Cells Counted 100 (MANUAL DIFF)
[2024-04-28 07:25] LABS: Monocyte 2 % (0-10); Neutrophil-Segmented 62 % (47-70); Reactive Lymphocyte 1+
[2024-04-28 07:26] LABS: Ovalocyte 1+; Platelet Estimate A (ADEQ)
[2024-04-28 07:30] LABS: Absolute Lymphocyte Count 3.36 X10^3/uL (0.83-4.51)
[2024-04-28] MEDS: Insulin Lispro 100 UNIT/ML INSULN.PEN SC ×4 (07:37→21:19)
[2024-04-28] MEDS: Enoxaparin 40 MG/0.4 ML Syringe SC (07:38)
[2024-04-28] MEDS: Senna/Docusate Sodium 1 Tablet 2 TABLET PO ×2 (07:38→21:10)
[2024-04-28] MEDS: Na Biphos/Potassium Phosphate PACKET 1 PACKET PO ×2 (07:38→11:03)
[2024-04-28] MEDS: Pantoprazole Sodium 40 MG Tablet PO ×2 (07:40→20:48)
[2024-04-28 08:01] LABS: Bedside Glucose 177 mg/dL (74-106)
--- NOTE | 2024-04-28 08:11 | PN.CC_ITS ---
Assessment & Plan Assessment/Plan (1) Pneumothorax on right: PLAN: Plan RECOMMENDATIONS: 1. Continue antimicrobial therapy. Repeat blood cultures are pending. 2. Continue to minimize sedating medications as feasible. 3. Continue to wean stress dose steroids daily. 4. Continue appropriate DVT prophylaxis. 5. Encourage incentive spirometer use and mobilize patient as tolerated. 6. The patient is medically stable for transfer out of the intensive care unit. Will sign off from a critical care perspective. IMPRESSIONS: 1. Septic shock The patient presented with gram-negative bacteremia likely related to underlying urinary tract source of infection with associated pyelonephritis. The patient appears to have stabilized from a clinical perspective. She has been weaned from vasopressor and remains hemodynamically stable. Plan to continue antimicrobial therapy as ordered. Repeat blood cultures are currently pending. Recommend continuing to wean stress dose steroids daily as tolerated. 2. Diabetic ketoacidosis Resolved. Continue basal and sliding scale insulin coverage. 3. Iatrogenic pneumothorax Resolved. The patient's chest tube has been successfully removed without any further sequelae of pneumothorax. 4. Acute kidney injury Resolved. Most likely prerenal in etiology in the setting and #1. Creatinine has normalized with volume expansion and stabilization of hemodynamics. No indication for renal replacement therapy. 5. History of chronic pain/COPD/GERD/depression/anxiety/pulmonary hypertension with RV dysfunction Complicates care, management, recovery and prognosis. Continue supportive measures as noted above. Physical therapy to work with the patient. This note was generated with [employer] dictation software. It may contain incorrect words, spelling, and punctuation that were not noted in checking the note before signing. Subjective Subjective The patient was seen and examined at the bedside this morning. Events from the last 24 hours have been reviewed. The patient is currently afebrile, hemodynamically stable and maintaining appropriate oxygen saturations on room air. Chest x-ray completed yesterday afternoon, post chest tube removal, revealed no evidence of residual pneumothorax. White blood cell count remains stable at 20,000. Hemoglobin was noted to be 10.4 g/dL. Potassium is low at 3.1. Objective Data Objective Data The patient's most recent lab work, culture data and imaging studies have all been personally reviewed. Surface echocardiogram demonstrated normal LV size and function with an ejection fraction of 60%. There was evidence of moderate global RV systolic dysfunction with a severely dilated right ventricle and pulmonary artery systolic pressure estimated to be 40 mmHg. Blood cultures are positive for E. coli. Vital Signs: Vital Signs Temp Pulse Resp BP Pulse Ox O2 Del Method 96.9 F L 73 18 103/63 96 Room Air 04/28/24 04:00 04/28/24 07:00 04/28/24 07:00 04/28/24 07:00 04/28/24 07:00 04/28/24 07:00 Oxygen Delivery Method Room Air Weight: 173 lb 4.533 oz Body Mass Index (BMI) 28.8 Intake & Output: Intake and Output for Last 24 Hours 04/26/24 04/27/24 04/28/24 23:59 23:59 23:59 Intake Total 3635 / 3635 1273.45 / 1273.45 50 / 50 Output Total 2185 / 2185 5000 / 5000 400 / 400 Balance 1450 / 1450 -3726.55 / -3726.55 -350 / -350 Lab / Micro Data Attestation: I reviewed the patient's lab results. 04/28/24 05:20 04/28/24 05:20 Labs: Laboratory Results - last 24 hr 04/23/24 12:45: Diff Path Review Reviewed 04/24/24 04:36: Diff Path Review Reviewed 04/26/24 05:40: Diff Path Review Reviewed 04/27/24 04:20: Diff Path Review Reviewed 04/27/24 11:00: POC Glucose 356 H 04/27/24 16:16: POC Glucose 429 H 04/27/24 20:15: Vancomycin Trough 18.3 H 04/27/24 20:21: POC Glucose 358 H 04/28/24 05:20: WBC 19.7 H, RBC 3.80 L, Hgb 10.4 L, Hct 30.9 L, MCV 81.3, MCH 27.4, MCHC 33.7, RDW Std Deviation 40.8, RDW Coeff of Cele 13.7, Plt Count 203, MPV 10.5, Neut % (Auto) Not Reportable, Absolute Neuts (auto) 13.0 H, Absolute Lymphs (auto) 3.36, Total Counted 100, Neutrophils % (Manual) 62, Band Neutrophils % 4, Lymphocytes % (Manual) 17 L, Monocytes % (Manual) 2, Eosinophils % (Manual) 1, Metamyelocytes % 11 H, Myelocytes % 2 H, Promyelocytes % 1 H, Diff Path Review May foll, Reactive Lymphocytes 1+, Platelet Estimate A, Ovalocytes 1+, Sodium 138, Potassium 3.1 L, Chloride 109 H, Carbon Dioxide 27.0, Anion Gap 2 L, BUN 19 H, Creatinine 0.50 L, Estim Creat Clear Calc 134.84, Est GFR (MDRD) Af Amer 165, Est GFR (MDRD) Non-Af 137, BUN/Creatinine Ratio 37.9 H, Glucose 236 H, Calcium 8.0 L 04/28/24 07:36: POC Glucose 177 H Micro: Microbiology 04/23/24 14:15 Blood Culture (Wb) - Left Hand Blood Culture - Final Escherichia coli 04/23/24 15:00 Blood Culture (Wb) - Central Line Blood Culture - Final Escherichia coli 04/23/24 16:35 Wound - Nose Skin and Soft Tissue MRSA/MSSA (PCR - Final Meth. resistant Staph. aureus 04/23/24 16:15 Mucosa - Nasopharyngeal Respiratory Panel (PCR) - Final 04/23/24 16:35 Urine Catheter - Matos Legionella Antigen - Final 04/23/24 16:35 Urine Catheter - Matos Streptococcus pneumoniae Antigen (M - Final Radiography Diagnostic Testing: Radiology Impression Chest X-Ray 04/27/24 07:10 IMPRESSION: No radiographic evidence of acute cardiopulmonary disease. Electronically Signed: Mendoza Madison MD at 9:55 EST Reading Location ID and State: [facility] / [place] Tel , Service support , Chest X-Ray 04/27/24 14:00 IMPRESSION: 1. Status post removal of right chest tube. 2. No evidence of pneumothorax. Electronically Signed: Mendoza Madison MD at 14:36 EST , Social Homelessness:: Sheltered Physical Exam Const alert, oriented x3 and no apparent distress Constitutional Narrative: Resting comfortably in bed. General Appearance: cooperative HEENT normocephalic, head/scalp atraumatic and moist oral mucous membranes Eyes PERRL, EOMs intact bilaterally and conjunctivae normal Neck supple General: trachea midline Chest inspection of chest normal Resp normal respiratory effort Auscultation: Negative for rales, rhonchi or wheezes Cardio regular rate and regular rhythm GI normal to inspection, nondistended, normoactive bowel sounds Extremity no clubbing, cyanosis or edema Skin no rashes or lesions noted Neuro CN's II-XII intact bilaterally, moves all extremities and no focal motor deficits Psych cooperative and affect normal Charges/Coding Visit Charges Inpatient E&M: 45257 Subs Hosp L2
[2024-04-28] MEDS: Vancomycin HCl 1,500 MG in 0.9% Normal Saline (500mL Bag) 500 ML 250 MG IV ×2 (08:39→20:43)
[2024-04-28] MEDS: oxyCODONE 5 MG Tablet 2.5 MG PO ×3 (08:43→21:10)
--- NOTE | 2024-04-28 09:10 | PN.HOSP_ITS ---
Subjective Subjective Doing well, states that she was having some hallucinations overnight Objective Data Objective Data Vital Signs: Vital Signs Temp Pulse Resp BP Pulse Ox O2 Del Method 98.7 F 88 23 H 121/61 H 97 Room Air 04/28/24 08:00 04/28/24 08:00 04/28/24 08:00 04/28/24 08:00 04/28/24 08:00 04/28/24 08:00 Oxygen Delivery Method Room Air Weight: 173 lb 4.533 oz Body Mass Index (BMI) 28.8 Intake & Output: Intake and Output for Last 24 Hours 04/27/24 04/28/24 04/29/24 03:59 03:59 03:59 Intake Total 2651.45 / 2660.85 1257.0 / 1257.0 Output Total 2935 / 2935 3400 / 3400 400 / 400 Balance -283.55 / -274.15 -2143.0 / -2143.0 -400 / -400 Lab / Micro Data 04/28/24 05:20 04/28/24 05:20 Labs: Laboratory Results - last 24 hr 04/23/24 12:45: Diff Path Review Reviewed 04/24/24 04:36: Diff Path Review Reviewed 04/26/24 05:40: Diff Path Review Reviewed 04/27/24 04:20: Diff Path Review Reviewed 04/27/24 11:00: POC Glucose 356 H 04/27/24 16:16: POC Glucose 429 H 04/27/24 20:15: Vancomycin Trough 18.3 H 04/27/24 20:21: POC Glucose 358 H 04/28/24 05:20: WBC 19.7 H, RBC 3.80 L, Hgb 10.4 L, Hct 30.9 L, MCV 81.3, MCH 27.4, MCHC 33.7, RDW Std Deviation 40.8, RDW Coeff of Cele 13.7, Plt Count 203, MPV 10.5, Neut % (Auto) Not Reportable, Absolute Neuts (auto) 13.0 H, Absolute Lymphs (auto) 3.36, Total Counted 100, Neutrophils % (Manual) 62, Band Neutrophils % 4, Lymphocytes % (Manual) 17 L, Monocytes % (Manual) 2, Eosinophils % (Manual) 1, Metamyelocytes % 11 H, Myelocytes % 2 H, Promyelocytes % 1 H, Diff Path Review May foll, Reactive Lymphocytes 1+, Platelet Estimate A, Ovalocytes 1+, Sodium 138, Potassium 3.1 L, Chloride 109 H, Carbon Dioxide 27.0, Anion Gap 2 L, BUN 19 H, Creatinine 0.50 L, Estim Creat Clear Calc 134.84, Est GFR (MDRD) Af Amer 165, Est GFR (MDRD) Non-Af 137, BUN/Creatinine Ratio 37.9 H, Glucose 236 H, Calcium 8.0 L 04/28/24 07:36: POC Glucose 177 H Micro: Microbiology 04/23/24 14:15 Blood Culture (Wb) - Left Hand Blood Culture - Final Escherichia coli 04/23/24 15:00 Blood Culture (Wb) - Central Line Blood Culture - Final Escherichia coli 04/23/24 16:35 Wound - Nose Skin and Soft Tissue MRSA/MSSA (PCR - Final Meth. resistant Staph. aureus 04/23/24 16:15 Mucosa - Nasopharyngeal Respiratory Panel (PCR) - Final 04/23/24 16:35 Urine Catheter - Matos Legionella Antigen - Final 04/23/24 16:35 Urine Catheter - Matos Streptococcus pneumoniae Antigen (M - Final Radiography Diagnostic Testing: Radiology Impression Chest X-Ray 04/27/24 07:10 IMPRESSION: No radiographic evidence of acute cardiopulmonary disease. Electronically Signed: Mendoza Madison MD at 9:55 EST Reading Location ID and State: [facility] / [place] Tel , Service support , Chest X-Ray 04/27/24 14:00 IMPRESSION: 1. Status post removal of right chest tube. 2. No evidence of pneumothorax. Electronically Signed: Mendoza Madison MD at 14:36 EST , Social Homelessness:: Sheltered Physical Exam Narrative General: Alert, Oriented x3, Cooperative, No apparent distress HEENT: Atraumatic, PERRLA, EOMI, Normocephalic Oral: Moist Mucosa Neck: Supple, No JVD Lungs: Diminished, Normal air movement, No rhonchi, No wheeze, No rales Cardiovascular: Regular rate, Regular Rhythm, Normal S1, Normal S2, No murmurs Abdomen: Soft, Non Tender, Non-Distended, No Hepato-splenomegaly Extremities: No edema, Capillary Refill Less than 3 Seconds Skin: No rashes, No breakdown Musculoskeletal: No Tenderness to Palpation of Joints or Extremities Neurological: No focal neurological deficits, Motor Exam 5/5 strength throughout, Sensory exam intact to light touch and pain Psych/Mental Status: Normal Affect, Appropriate Assessment & Plan Assessment/Plan (1) DKA, type 1: PLAN: Plan # Multifocal left-sided pyelonephritis with E. coli bacteremia -Tmax of 104 overnight with patient tachypneic and tachycardic -White blood cell count 23 on presentation with broad-spectrum antibiotics as 15 -Additionally Pro-Zach greater than 20 -UA unremarkable -Chest x-ray did not report any acute disease -Urine antigens negative -Base respiratory panel negative -Currently 2 out of 2 blood cultures with gram-negative rods (initially reported out as gram positive rods but has been changed) -Continue broad-spectrum antibiotics at this time -Patient does reportedly have a substance use history and well currently reporting no use will obtain echocardiogram given unclear source to assess for any vegetations -Additionally given patient's complaints only being mild cough and some left- sided flank pain she had a CT of chest abdomen and pelvis with contrast which showed multifocal pyelonephritis, awaiting cultures -04/25: Patient still intermittently spiking fevers however source identified as multifocal pyelonephritis and she has been treated with vancomycin and Zosyn pending cultures. First blood culture growing E. coli and it is sensitive to Zosyn. Will discontinue vancomycin. If she continues having elevated fevers may need to rescan kidneys to assess for any abscess formation however no abscesses noted on the CT abdomen and pelvis with contrast from 04/24 and fevers are slowly downtrending white blood cell count is improving -04/26: Patient continues to spike temperatures, she remains on Zosyn but has been spiking temperatures since vancomycin was discontinued so we we will resume this pending repeat cultures, additionally given vague respiratory as well as abdominal complaints will reimage. May need to consult infectious disease tomorrow -04/27: Patient has no further fevers since yesterday, doing well on vancomycin and Zosyn, repeat cultures pending. Had spiked temperature when vancomycin was discontinued despite still being on Zosyn, unclear if this is coincidental or not but is doing better off of it. White blood cell count did increase but hydrocortisone started by supervisor water treatment plant over the weekend. Continue Zosyn and await cultures. Spoke with supervisor water treatment plant, stress dose steroids to be weaned tomorrow if she remains stable. Patient has been off Levophed 04/28/2024: Awaiting repeat cultures if she has an increased white count and fever and had vancomycin ordered. So far the only thing positive aside from the MRSA nare swab which is expected given her recent hospitalizations is E. coli bacteremia. # Right-sided pneumothorax?resolved -Patient was slightly tachypneic and slightly tachycardic however she was febrile which would have accounted for both of these things and was not reporting any overt shortness of breath -Earlier chest x-rays had not called pneumothorax however CT of the chest/abdomen/pelvis obtained for finding source of infection revealed right- sided pneumothorax -Pulm and surgery contacted and patient had chest tube placed -04/25: Surgery managing chest tube, repeat chest x-ray this a.m with no noted pneumothorax however given patient's vitals they will be maintained today -04/26: Repeat chest x-ray this a.m., surgery following for chest tube management -04/27: Chest tube pulled, chest x-ray with no reaccumulating pneumothorax #DKA in setting of chronic type 1 diabetes, DKA now resolved -Serum glucose in ED 475, anion gap 21 -Urine ketones 50 -Serum acetone moderate -Admit to intensive care unit -Patient made n.p.o. and started on insulin drip -Aggressive fluid hydration -Glucose checks and DKA protocol -Trend BMP -A1c 11.7 -Presently gap is closed and appears patient is out of DKA. Of note patient reports that her insulin was taken by her ex- and that is why she was out of it and came in DKA -Patient transition to long-acting and sliding scale, tolerating p.o. -04/25: Gap remains closed but glucose still elevated, will increase long-acting insulin -04/26: Patient's glucose on BMP only 71 and had difficulty increasing with orange juice and required D10, long-acting insulin was held -04/27: Glucose uptrending again now the patient clinically improving and she is on hydrocortisone, increase glargine again, will likely need further titration, stress dose steroids to begin weaning tomorrow 04/28/2024: Decrease hydrocortisone to 50 mg IV 3 times daily #?Hx hepatitis C -04/27: Patient reports history of hepatitis C and was never treated and does not believe she is cleared this. She would be interested in outpatient referral for treatment if she remains infected. Hepatitis panel and viral load ordered. Patient will need referral to GI or ID on discharge # KASSY -On admission creatinine 1.43 with a baseline around 0.5-0.7 -Today creatinine 0.68, improved with IV fluids -04/25: Kidney function continues to improve -04/26: Kidney function remained stable today -04/27: Continue to avoid nephrotoxic agents, BUN 17 and creatinine 0.47 today #Hypokalemia -Replace -Repeat in the AM -04/26: Potassium 3, will replace -04/27: Repeat potassium this a.m. 3.9 Chronic medical problems: # COPD -Continue budesonide therapy and as needed albuterol -04/25: Patient 96% on room air, continue current management -04/26: Remains 98% on room air, monitoring respiratory status #GERD -Continue PPI #Depression/anxiety, ? History of bipolar disorder -Continue home medications though it is unclear exactly what those are as patient's fill history and current medication list are not necessarily concurrent -Do not see where she has recently filled hydroxyzine so we will discontinue this as it may be contributing to her increased lethargy -04/27: Patient reported being on Seroquel and Abilify however does not appear she was feeling Abilify so her Seroquel was adjusted to her home dose and Abilify has been held. If patient remains stable and alert we will need to add back her home antidepression medication, doxepin DVT: Lovenox Charges/Coding Visit Charges Inpatient E&M: 12513 Subs Hosp L2
[2024-04-28] MEDS: Insulin Glargine-YFGN 100 UNIT/ML Pen 30 UNIT SC ×2 (11:03→21:20)
[2024-04-28 11:28] LABS: Bedside Glucose 157 mg/dL (74-106)
[2024-04-28 11:53] LABS: Pathologist Review Reviewed
--- NOTE | 2024-04-28 12:08 | CASEMGMT ---
Social Work SW met w/pt in room in regard to discharge plan. SW inquired if she would like to go anywhere for rehab. Pt is not sure, she asked SW what SW thought. SW explained it may be good to see how she does today w/therapy, and then decide. Pt states she does have steps to her room, SW explained we can see if therapy will work w/her today on the steps. SW did review briefly facilities in [place] should she need to go somewhere, but can also provide a list. Pt states understanding. SW spoke w/therapy, asked them to do steps w/pt today. SW will follow up again after therapy. WADE Urrutia
[2024-04-28] MEDS: Hydrocortisone Sod Succinate 100 MG/2 ML Vial 50 MG IV ×2 (13:40→20:48)
--- NOTE | 2024-04-28 14:39 | CASEMGMT ---
Discharge Planning A list of SNF providers including quality and resource use data and consistent with the patient's preferred geographic region, medical needs, and insurance network was created in [employer].? This list was provided to the SW. Yenny Bustillo Discharge Planning Asst.
--- NOTE | 2024-04-28 16:01 | CASEMGMT ---
Social Work SW met w/pt again about discharge plan. Pt does think she will be able to return back to [facility] at discharge, but is not completely certain. SW let her know can have the SW tomorrow check in w/her again after therapy. SW did give to pt a list from [facility] of residential facilities in network w/pt's insurance, in pt's preferred geographic area and complete w/quality and resource use data should it be needed. SW will follow up tomorrow. WADE Urrutia
[2024-04-28 16:11] LABS: Bedside Glucose 229 mg/dL (74-106)
[2024-04-28] MEDS: QUEtiapine 100 MG Tablet PO (20:47)
[2024-04-28 21:42] LABS: Bedside Glucose 291 mg/dL (74-106)
[2024-04-29 01:23] VITALS: BMI 29.5
[2024-04-29 02:00] VITALS: BP 129/80; PULSE 74; RESP 21; TEMP 36.3; O2SAT 99
[2024-04-29] MEDS: Acetaminophen 325 MG Tablet 650 MG PO ×2 (04:45→11:20)
[2024-04-29] MEDS: oxyCODONE 5 MG Tablet 2.5 MG PO ×2 (04:47→11:22)
[2024-04-29] MEDS: busPIRone 5 MG Tablet 10 MG PO ×2 (04:50→13:11)
[2024-04-29] MEDS: Nystatin Powder 15gm Bottle 1 APPLIC TOPICAL ×2 (04:52→11:09)
[2024-04-29] MEDS: Hydrocortisone Sod Succinate 100 MG/2 ML Vial 50 MG IV ×2 (05:02→13:11)
[2024-04-29] MEDS: Piperacil/Tazobactam 3.375 GM in 0.9% Normal Saline (50mL MB+) 50 ML IV (05:03)
[2024-04-29] MEDS: Gabapentin 300 MG Capsule PO ×2 (05:05→13:11)
[2024-04-29] MEDS: Insulin Lispro 100 UNIT/ML INSULN.PEN SC ×2 (06:32→11:13)
[2024-04-29 07:01] LABS: Bedside Glucose 261 mg/dL (74-106)
[2024-04-29 07:33] LABS: Hematocrit 31.9 % (37-47); Hemoglobin 10.9 g/dL (12.0-15.0); Mean Corp Hgb Conc 34.2 g/dL (32-36); Mean Corpuscular Hgb 27.9 pg (27.0-32.0); Mean Corpuscular Volume 81.8 fL (81-99); Mean Platelet Vol. 10.3 fl (6.2-12.0); POSITIVE COUNT YES; Platelet Count 210 K/mm3 (150-450); RBC Distribution Width CV 13.8 % (11.6-14.6); RBC Distribution Width SD 40.7 fl (35.1-43.9); White Blood Count 15.4 K/mm3 (4.4-11.0)
[2024-04-29 07:43] LABS: Differential Indicated MANUAL DIFF
[2024-04-29 07:52] LABS: Anion Gap 6 (5-15); BUN 17 mg/dL (7-18); BUN/Creat Ratio 32.6 RATIO (10-20); Calcium,Total 7.9 mg/dL (8.5-10.1); Chloride 109 mmol/L (98-107); Creatinine, Serum 0.52 mg/dL (0.55-1.02); EST Glomerular Filtration Rate 130 mL/min (>60); Est Glom Filt Rate - Afr Amer 158 mL/min (>60); Estimated Creatinine Clearance 131.15 ml/min; Glucose 299 mg/dL (74-106); Potassium 3.5 mmol/L (3.5-5.1); Sodium Level 140 mmol/L (136-145)
[2024-04-29 07:55] LABS: Vancomycin, Trough Level 20.7 ug/mL (5.0-15.0)
[2024-04-29 08:00] VITALS: BP 127/62; PULSE 88; RESP 16; TEMP 36.4; O2SAT 97
[2024-04-29] MEDS: Na Biphos/Potassium Phosphate PACKET 1 PACKET PO ×2 (08:17→11:09)
[2024-04-29] MEDS: Senna/Docusate Sodium 1 Tablet 2 TABLET PO (08:19)
[2024-04-29] MEDS: Pantoprazole Sodium 40 MG Tablet PO (08:19)
[2024-04-29] MEDS: Enoxaparin 40 MG/0.4 ML Syringe SC (08:20)
[2024-04-29] MEDS: Insulin Glargine-YFGN 100 UNIT/ML Pen 30 UNIT SC (08:23)
[2024-04-29 09:21] LABS: Lymphocyte 7 % (19-41); Metamyelocyte 4 % (0-1); Monocyte 5 % (0-10); Myelocyte 3 % (0-0); Neutrophil-Band 1 % (0-5); Neutrophil-Segmented 80 % (47-70)
[2024-04-29 09:22] LABS: Absolute Lymphocyte Count 1.08 X10^3/uL (0.83-4.51); Absolute Neutrophil Count 12.5 X10^3/uL (2.0-7.7)
[2024-04-29 09:26] LABS: Anisocytosis 1+; Platelet Estimate ADEQUATE (ADEQ); Polychromasia 1+; Schistocytes RARE; Toxic Granulation 2+
[2024-04-29 09:27] LABS: Microcytosis 1+; Tear Drop Cell 1+
--- NOTE | 2024-04-29 10:51 | CASEMGMT ---
Social Work- SW met with pt to discuss discharge preferences. Pt reports that she did well again with therapy and plans to discharge to [facility]. Pt reports that they will transport at discharge. Pt talked through weighing returning to [place] vs establishing herself locally. SW provided education on [facility] services, local resources, as well as guiding through feelings surrounding both options. SW provided active and empathetic listening, as well as encouragement that pt has 2 weeks prior to receiving disability, therefore giving pt a reasonable timeline in which to work towards having arrangements made and supports in place. Pt reports that she feels that she would like to stay and work with [facility] and asked for PCP lists to establish care. SW provided [facility] and [facility] providers list, as well as a print-off from [employer] for PCP. SW collaborated with physician in regards to discharge timing and plans. SW remains available to follow for any needs. EDWARD Fernández
--- NOTE | 2024-04-29 11:24 | DCINST_ITS ---
Discharge Instructions Diet Discharge Diet: Carb Control Diet DC O2, CPAP, BIPAP needs Home O2 Discharge instructions: No Dressing / Incision Discharge Activity: Return to Normal Activity Dressing / Incision Call your doctor if you observe: Fever of 101 or Higher, Shortness of breath, Dizziness, Fainting spells, Swelling in the ankles, Chest pain and Increased palpitations (irregular heartbeat) Follow Up Care Test Results: Test results from this visit will be discussed in further detail at your follow- up appointment, if applicable. Discharge Plan Admission Admit Date/Time: 04/23/24 13:56 Attending Provider: Farhad Ma Primary Care Provider: Fely Bose Consulting Providers: Herminia Rojas; Kandace Arias Discharge Orders/Prescriptions Prescriptions: New cefdinir 300 mg capsule 300 mg PO BID Qty: 14 0RF Continued (DME) pen needle, diabetic 31 gauge x 1/4 needle See Rx Instructions .Route Qty: 100 0RF Rx Instructions: As directed cyclobenzaprine 5 mg PO TID PRN PRN (Reason: MUSCLE SPASMS) doxepin 25 mg capsule 25 mg PO QHS 30 Days Qty: 30 0RF quetiapine 200 mg tablet 200 mg PO QHS 30 Days Qty: 30 0RF quetiapine 100 mg tablet 100 mg PO DAILY 30 Days Qty: 30 0RF Rx Instructions: takes in morning buspirone 10 MG tablet 10 mg PO TID 30 Days Qty: 90 0RF hydroxyzine pamoate [Vistaril] 25 mg capsule 50 mg PO TID 30 Days Qty: 180 0RF insulin lispro 100 unit/mL insulin pen See Protocol subcut ACHS 30 Days Qty: 15 0RF Protocol: 5. Sliding Scale Insulin High Dosing Condition: 150-209 mg/dl = 3 units Condition: 210-259 mg/dl = 6 units Condition: 260-324 mg/dl = 9 units Condition: 325-374 mg/dl = 12 units Condition: 375-409 mg/dl = 14 units Condition: 410-449 mg/dl = 16 units Condition: Greater than 449 call physician Protocol Text: Suggested for: - Patients on Total Daily Insulin Dose of 81-120 units - Very insulin resistant patients HIGH DOSING ALGORITHM Rx Instructions: subcutaneously; aripiprazole 5 mg tablet 5 mg PO DAILY 30 Days Qty: 30 0RF insulin glargine [Lantus Solostar U-100 Insulin] 100 unit/mL (3 mL) insulin pen 35 unit subcut BIDCM 30 Days Qty: 15 0RF Linzess 72 mcg capsule 72 mcg PO DAILY 30 Days Qty: 30 0RF gabapentin 300 mg capsule 300 mg PO TID Referrals / Follow Up: Fely Bose MD [Primary Care Provider] - Within 1 Week Disposition Disposition (needs filled in before D/C Order can be placed): Home, Self Care
[2024-04-29 11:33] LABS: Bedside Glucose 298 mg/dL (74-106)
--- NOTE | 2024-04-29 12:07 | CASEMGMT ---
Pt has an order for DC placed. RN CM to pt room at this time and pt updated. Pt displays excitement and states [facility]. Pt RN updated. Pt denies further concerns at this time.
[2024-04-29] MEDS: 0.9% Saline Lock 10 ML Syringe IV (13:12)
[2024-04-29 14:00] VITALS: BP 125/72; PULSE 82; RESP 16; TEMP 36.4; O2SAT 97
--- NOTE | 2024-04-29 14:11 | PHA.DC.MR.R ---
Pharmacy [place] Med Reconciliation Pharmacy Service has performed discharge medication reconciliation for this patient. Medication education papers prepared, patient discharged before I was able to career development counselor. Medications reviewed. The patient's discharge medication list was reviewed for discrepancies and discrepancies were resolved. Medications at Discharge Home Medications pen needle, diabetic 31 gauge x 1/4 #100 ea 02/08/24 cyclobenzaprine 5 mg PO TID PRN PRN MUSCLE SPASMS 02/20/24 aripiprazole 5 mg tablet 5 mg PO DAILY antidepressant 30 days #30 tabs 02/29/24 buspirone 10 mg tablet 10 mg PO TID depression 30 days #90 tabs 02/29/24 doxepin 25 mg capsule 25 mg PO QHS bipolar 30 days #30 caps 02/29/24 hydroxyzine pamoate 25 mg capsule (Vistaril) 50 mg (2 x 25 mg) PO TID anxiety 30 days #180 caps 02/29/24 insulin glargine 100 unit/mL (3 mL) subcutaneous pen (Lantus Solostar U-100 Insulin) 35 unit (0.35 mL) subcut BIDCM blood sugar 30 days #15 mL 02/29/24 insulin lispro 100 unit/mL subcutaneous pen See Protocol subcut ACHS blood sugar 30 days #15 mL 02/29/24 linaclotide 72 mcg capsule (Linzess) 72 mcg PO DAILY bowels 30 days #30 caps 02/29/24 quetiapine 100 mg tablet 100 mg PO DAILY bipolar 30 days #30 tabs 02/29/24 quetiapine 200 mg tablet 200 mg PO QHS bipolar 30 days #30 tabs 02/29/24 gabapentin 300 mg capsule 300 mg PO TID 04/23/24 cefdinir 300 mg capsule 300 mg PO BID #14 caps 04/29/24
--- NOTE | 2024-04-29 15:18 | PCM.DC.SUM ---
Providers Date of Admission: 04/23/24 Primary Care Physician: Dr. Fely Bose MD Consultations 04/24/24 12:55 Consult: Pan Devulcanizer Helper / Pulmonary Medicine Routine Consulting Provider: Intensivists/Pulmonary Med Reason for Consult: chest tube placement EMERGENT Consult: No Notified: Yes Date Notified: 04/24/24 Time Notified: 12:55 Method of Notification: Verbal 04/25/24 15:59 Consult: Pan Devulcanizer Helper / Pulmonary Medicine Routine Consulting Provider: Intensivists/Pulmonary Med Reason for Consult: Hypotensive starting levo EMERGENT Consult: No Notified: Yes Date Notified: 04/25/24 Time Notified: 16:00 Method of Notification: Answering Service Reason For Visit: DKA, KASSY Diagnosis Discharge Diagnosis (1) Pneumothorax on right: Status: Acute Code(s): J93.9 - Pneumothorax, unspecified Plan # Multifocal left-sided pyelonephritis with E. coli bacteremia -Tmax of 104 overnight with patient tachypneic and tachycardic -White blood cell count 23 on presentation with broad-spectrum antibiotics as 15 -Additionally Pro-Zach greater than 20 -UA unremarkable -Chest x-ray did not report any acute disease -Urine antigens negative -Base respiratory panel negative -Currently 2 out of 2 blood cultures with gram-negative rods (initially reported out as gram positive rods but has been changed) -Continue broad-spectrum antibiotics at this time -Patient does reportedly have a substance use history and well currently reporting no use will obtain echocardiogram given unclear source to assess for any vegetations -Additionally given patient's complaints only being mild cough and some left-sided flank pain she had a CT of chest abdomen and pelvis with contrast which showed multifocal pyelonephritis, awaiting cultures -04/25: Patient still intermittently spiking fevers however source identified as multifocal pyelonephritis and she has been treated with vancomycin and Zosyn pending cultures. First blood culture growing E. coli and it is sensitive to Zosyn. Will discontinue vancomycin. If she continues having elevated fevers may need to rescan kidneys to assess for any abscess formation however no abscesses noted on the CT abdomen and pelvis with contrast from 04/24 and fevers are slowly downtrending white blood cell count is improving -04/26: Patient continues to spike temperatures, she remains on Zosyn but has been spiking temperatures since vancomycin was discontinued so we we will resume this pending repeat cultures, additionally given vague respiratory as well as abdominal complaints will reimage. May need to consult infectious disease tomorrow -04/27: Patient has no further fevers since yesterday, doing well on vancomycin and Zosyn, repeat cultures pending. Had spiked temperature when vancomycin was discontinued despite still being on Zosyn, unclear if this is coincidental or not but is doing better off of it. White blood cell count did increase but hydrocortisone started by church official over the weekend. Continue Zosyn and await cultures. Spoke with church official, stress dose steroids to be weaned tomorrow if she remains stable. Patient has been off Levophed 04/28/2024: Awaiting repeat cultures if she has an increased white count and fever and had vancomycin ordered. So far the only thing positive aside from the MRSA nare swab which is expected given her recent hospitalizations is E. coli bacteremia. # Right-sided pneumothorax?resolved -Patient was slightly tachypneic and slightly tachycardic however she was febrile which would have accounted for both of these things and was not reporting any overt shortness of breath -Earlier chest x-rays had not called pneumothorax however CT of the chest/abdomen/pelvis obtained for finding source of infection revealed right-sided pneumothorax -Pulm and surgery contacted and patient had chest tube placed -04/25: Surgery managing chest tube, repeat chest x-ray this a.m with no noted pneumothorax however given patient's vitals they will be maintained today -04/26: Repeat chest x-ray this a.m., surgery following for chest tube management -04/27: Chest tube pulled, chest x-ray with no reaccumulating pneumothorax #DKA in setting of chronic type 1 diabetes, DKA now resolved -Serum glucose in ED 475, anion gap 21 -Urine ketones 50 -Serum acetone moderate -Admit to intensive care unit -Patient made n.p.o. and started on insulin drip -Aggressive fluid hydration -Glucose checks and DKA protocol -Trend BMP -A1c 11.7 -Presently gap is closed and appears patient is out of DKA. Of note patient reports that her insulin was taken by her ex- and that is why she was out of it and came in DKA -Patient transition to long-acting and sliding scale, tolerating p.o. -04/25: Gap remains closed but glucose still elevated, will increase long-acting insulin -04/26: Patient's glucose on BMP only 71 and had difficulty increasing with orange juice and required D10, long-acting insulin was held -04/27: Glucose uptrending again now the patient clinically improving and she is on hydrocortisone, increase glargine again, will likely need further titration, stress dose steroids to begin weaning tomorrow 04/28/2024: Decrease hydrocortisone to 50 mg IV 3 times daily #?Hx hepatitis C -04/27: Patient reports history of hepatitis C and was never treated and does not believe she is cleared this. She would be interested in outpatient referral for treatment if she remains infected. Hepatitis panel and viral load ordered. Patient will need referral to GI or ID on discharge # KASSY -On admission creatinine 1.43 with a baseline around 0.5-0.7 -Today creatinine 0.68, improved with IV fluids -04/25: Kidney function continues to improve -04/26: Kidney function remained stable today -04/27: Continue to avoid nephrotoxic agents, BUN 17 and creatinine 0.47 today #Hypokalemia -Replace -Repeat in the AM -04/26: Potassium 3, will replace -04/27: Repeat potassium this a.m. 3.9 Chronic medical problems: # COPD -Continue budesonide therapy and as needed albuterol -04/25: Patient 96% on room air, continue current management -04/26: Remains 98% on room air, monitoring respiratory status #GERD -Continue PPI #Depression/anxiety, ? History of bipolar disorder -Continue home medications though it is unclear exactly what those are as patient's fill history and current medication list are not necessarily concurrent -Do not see where she has recently filled hydroxyzine so we will discontinue this as it may be contributing to her increased lethargy -04/27: Patient reported being on Seroquel and Abilify however does not appear she was feeling Abilify so her Seroquel was adjusted to her home dose and Abilify has been held. If patient remains stable and alert we will need to add back her home antidepression medication, doxepin DVT: Lovenox Medications at Discharge Home Medications pen needle, diabetic 31 gauge x 04/18 #100 ea 02/08/24 cyclobenzaprine 5 mg PO TID PRN PRN MUSCLE SPASMS 02/20/24 aripiprazole 5 mg tablet 5 mg PO DAILY antidepressant 30 days #30 tabs 02/29/24 buspirone 10 mg tablet 10 mg PO TID depression 30 days #90 tabs 02/29/24 doxepin 25 mg capsule 25 mg PO QHS bipolar 30 days #30 caps 02/29/24 hydroxyzine pamoate 25 mg capsule (Vistaril) 50 mg (2 x 25 mg) PO TID anxiety 30 days #180 caps 02/29/24 insulin glargine 100 unit/mL (3 mL) subcutaneous pen (Lantus Solostar U-100 Insulin) 35 unit (0.35 mL) subcut BIDCM blood sugar 30 days #15 mL 02/29/24 insulin lispro 100 unit/mL subcutaneous pen See Protocol subcut ACHS blood sugar 30 days #15 mL 02/29/24 linaclotide 72 mcg capsule (Linzess) 72 mcg PO DAILY bowels 30 days #30 caps 02/29/24 quetiapine 100 mg tablet 100 mg PO DAILY bipolar 30 days #30 tabs 02/29/24 quetiapine 200 mg tablet 200 mg PO QHS bipolar 30 days #30 tabs 02/29/24 gabapentin 300 mg capsule 300 mg PO TID 04/23/24 cefdinir 300 mg capsule 300 mg PO BID #14 caps 04/29/24 Hospital Course Operations None Procedures 2-D Echocardiogram Summary of Care Provided Minutes Spent on Discharge: 39 Hospital Course: Per HPI: The patient is a 53 y/o F w/ PMHx: Chart reported Polysubstance abuse, Tobacco use, Anxiety and Depression/Mood disorder, COPD complicated by Sarcoidosis, HTN, HLD, IDDM who presents to the [facility] ED on 04/23/24 with unfortunate history of her ex- taking her insulin for the last week noting that she has been out with significant polyuria, polydipsia, worsening nausea without emesis with poor oral intake ability in addition to over the last 3 to 4 days onset of mild congestion, rhinorrhea, cough and dyspnea with occasional productive sputum with low-grade temperatures prompting eventual ED evaluation to be cautious. She also does report mild dyspnea associated with these recent URI type symptoms. She denies any diarrhea but notes that her urine has been dark in color. In the ED upon initial arrival patient was more confused and appeared encephalopathic but is improved some with IV fluids but still extremely fatigued and lethargic. Workup in the ED included T97.7, heart rate 124, BP 125/62, respiratory rate 20, 80% room air however she did have a Tmax in the ED up to 102.9 core, CBC with WBC 23.4, hemoglobin 14.6, platelet 156 with significant left shift, ABG with pH 7.35, bicarb 13.5, O2 saturation 94%, pCO2 24.3, pO2 74, CMP with sodium 127, potassium 3.1, chloride 91, carbon dioxide 14, anion gap 21, BUN/creatinine 40/1.43, glucose 475, hepatic profile with T. bili 0.80, D bili 0.43, alk phos 153 otherwise not marked appearing, urinalysis with cloudy appearing urine, specific gravity 1.015, protein 100, thousand glucose, 50 ketone, occult blood 25, negative nitrite, leukocyte esterase 25 with no obvious evidence of UTI, acetone level moderate, blood culture x 2 pending per ED. in the ED patient ministered 2 L normal saline, Tylenol 650 mg p.o. x 1, azithromycin 500 mg IV x 1, Rocephin 2 g IV x 1 given recent respiratory complaints with concern for possibly clinical pneumonia given SIRS concerns. Hospital Course: # Multifocal left-sided pyelonephritis with E. coli bacteremia -Tmax of 104 overnight with patient tachypneic and tachycardic -White blood cell count 23 on presentation with broad-spectrum antibiotics as 15 -Additionally Pro-Zach greater than 20 -UA unremarkable -Chest x-ray did not report any acute disease -Urine antigens negative -Base respiratory panel negative -Currently 2 out of 2 blood cultures with gram-negative rods (initially reported out as gram positive rods but has been changed) -Continue broad-spectrum antibiotics at this time -Patient does reportedly have a substance use history and well currently reporting no use will obtain echocardiogram given unclear source to assess for any vegetations -Additionally given patient's complaints only being mild cough and some left-sided flank pain she had a CT of chest abdomen and pelvis with contrast which showed multifocal pyelonephritis, awaiting cultures -04/25: Patient still intermittently spiking fevers however source identified as multifocal pyelonephritis and she has been treated with vancomycin and Zosyn pending cultures. First blood culture growing E. coli and it is sensitive to Zosyn. Will discontinue vancomycin. If she continues having elevated fevers may need to rescan kidneys to assess for any abscess formation however no abscesses noted on the CT abdomen and pelvis with contrast from 04/24 and fevers are slowly downtrending white blood cell count is improving -04/26: Patient continues to spike temperatures, she remains on Zosyn but has been spiking temperatures since vancomycin was discontinued so we we will resume this pending repeat cultures, additionally given vague respiratory as well as abdominal complaints will reimage. May need to consult infectious disease tomorrow -04/27: Patient has no further fevers since yesterday, doing well on vancomycin and Zosyn, repeat cultures pending. Had spiked temperature when vancomycin was discontinued despite still being on Zosyn, unclear if this is coincidental or not but is doing better off of it. White blood cell count did increase but hydrocortisone started by church official over the weekend. Continue Zosyn and await cultures. Spoke with church official, stress dose steroids to be weaned tomorrow if she remains stable. Patient has been off Levophed 04/28/2024: Awaiting repeat cultures if she has an increased white count and fever and had vancomycin ordered. So far the only thing positive aside from the MRSA nare swab which is expected given her recent hospitalizations is E. coli bacteremia. 04/29/2024: Cultures are negative for any E. coli or gram-positive organism. I discussed with her the possibility for discharge today she expressed understanding there is benefits of going home and would like to go home today. She currently lives at a homeless intermediate. She was discharged on 7 more days of p.o. cefdinir to complete 14 days of antibiotics for her E. coli bacteremia. I discussed with her the need to follow-up with her PCP in 3 to 5 days. Also her steroids were discontinued so her blood sugars should be much easier to control over the next couple of days will continue with her home insulin regimen. No changes were made to her home medications on discharge # Right-sided pneumothorax?resolved -Patient was slightly tachypneic and slightly tachycardic however she was febrile which would have accounted for both of these things and was not reporting any overt shortness of breath -Earlier chest x-rays had not called pneumothorax however CT of the chest/abdomen/pelvis obtained for finding source of infection revealed right-sided pneumothorax -Pulm and surgery contacted and patient had chest tube placed -04/25: Surgery managing chest tube, repeat chest x-ray this a.m with no noted pneumothorax however given patient's vitals they will be maintained today -04/26: Repeat chest x-ray this a.m., surgery following for chest tube management -04/27: Chest tube pulled, chest x-ray with no reaccumulating pneumothorax #DKA in setting of chronic type 1 diabetes, DKA now resolved -Serum glucose in ED 475, anion gap 21 -Urine ketones 50 -Serum acetone moderate -Admit to intensive care unit -Patient made n.p.o. and started on insulin drip -Aggressive fluid hydration -Glucose checks and DKA protocol -Trend BMP -A1c 11.7 -Presently gap is closed and appears patient is out of DKA. Of note patient reports that her insulin was taken by her ex- and that is why she was out of it and came in DKA -Patient transition to long-acting and sliding scale, tolerating p.o. -04/25: Gap remains closed but glucose still elevated, will increase long-acting insulin -04/26: Patient's glucose on BMP only 71 and had difficulty increasing with orange juice and required D10, long-acting insulin was held -04/27: Glucose uptrending again now the patient clinically improving and she is on hydrocortisone, increase glargine again, will likely need further titration, stress dose steroids to begin weaning tomorrow 04/28/2024: Decrease hydrocortisone to 50 mg IV 3 times daily 04/29/2024: Hydrocortisone discontinued today #?Hx hepatitis C -04/27: Patient reports history of hepatitis C and was never treated and does not believe she is cleared this. She would be interested in outpatient referral for treatment if she remains infected. Hepatitis panel and viral load ordered. Patient will need referral to GI or ID on discharge # KASSY -On admission creatinine 1.43 with a baseline around 0.5-0.7 -Today creatinine 0.68, improved with IV fluids -04/25: Kidney function continues to improve -04/26: Kidney function remained stable today -04/27: Continue to avoid nephrotoxic agents, BUN 17 and creatinine 0.47 today #Hypokalemia -Replace -Repeat in the AM -04/26: Potassium 3, will replace -04/27: Repeat potassium this a.m. 3.9 Chronic medical problems: # COPD -Continue budesonide therapy and as needed albuterol -04/25: Patient 96% on room air, continue current management -04/26: Remains 98% on room air, monitoring respiratory status #GERD -Continue PPI #Depression/anxiety, ? History of bipolar disorder -Continue home medications though it is unclear exactly what those are as patient's fill history and current medication list are not necessarily concurrent -Do not see where she has recently filled hydroxyzine so we will discontinue this as it may be contributing to her increased lethargy -04/27: Patient reported being on Seroquel and Abilify however does not appear she was feeling Abilify so her Seroquel was adjusted to her home dose and Abilify has been held. If patient remains stable and alert we will need to add back her home antidepression medication, doxepin Physical Exam Narrative General: Alert, Oriented x3, Cooperative, No apparent distress HEENT: Atraumatic, PERRLA, EOMI, Normocephalic Oral: Moist Mucosa Neck: Supple, No JVD Lungs: Diminished, Normal air movement, No rhonchi, No wheeze, No rales Cardiovascular: Regular rate, Regular Rhythm, Normal S1, Normal S2, No murmurs Abdomen: Soft, Non Tender, Non-Distended, No Hepato-splenomegaly Extremities: No edema, Capillary Refill Less than 3 Seconds Skin: No rashes, No breakdown Musculoskeletal: No Tenderness to Palpation of Joints or Extremities Neurological: No focal neurological deficits, Motor Exam 5/5 strength throughout, Sensory exam intact to light touch and pain Psych/Mental Status: Normal Affect, Appropriate Medical Records Data Homelessness:: Sheltered Weight / BMI Weight Weight: 177 lb 7.554 oz Body Mass Index (BMI) 29.5 ABG / Lab / Microbiology Data 04/29/24 07:00 04/29/24 07:00 Laboratory: Laboratory Results - last 24 hr 04/28/24 15:50: POC Glucose 229 H 04/28/24 21:18: POC Glucose 291 H 04/29/24 06:28: POC Glucose 261 H 04/29/24 07:00: WBC 15.4 H, RBC 3.90 L, Hgb 10.9 L, Hct 31.9 L, MCV 81.8, MCH 27.9, MCHC 34.2, RDW Std Deviation 40.7, RDW Coeff of Cele 13.8, Plt Count 210, MPV 10.3, Neut % (Auto) Not Reportable, Absolute Neuts (auto) 12.5 H, Absolute Lymphs (auto) 1.08, Neutrophils % (Manual) 80 H, Band Neutrophils % 1, Lymphocytes % (Manual) 7 L, Monocytes % (Manual) 5, Metamyelocytes % 4 H, Myelocytes % 3 H, Diff Path Review May foll, Toxic Granulation 2+, Platelet Estimate ADEQUATE, Polychromasia 1+, Anisocytosis 1+, Microcytosis 1+, Tear Drop Cells 1+, Schistocytes RARE, Sodium 140, Potassium 3.5, Chloride 109 H, Carbon Dioxide 25.0, Anion Gap 6, BUN 17, Creatinine 0.52 L, Estim Creat Clear Calc 131.15, Est GFR (MDRD) Af Amer 158, Est GFR (MDRD) Non-Af 130, BUN/Creatinine Ratio 32.6 H, Glucose 299 H, Calcium 7.9 L, Vancomycin Trough 20.7 H 04/29/24 11:12: POC Glucose 298 H Microbiology: Microbiology 04/25/24 16:40 Blood Culture (Wb) - Anticubital Right Blood Culture - Preliminary No growth in 48 hours. 04/25/24 17:10 Blood Culture (Wb) - Anticubital Right Blood Culture - Preliminary No growth in 48 hours. 04/23/24 14:15 Blood Culture (Wb) - Left Hand Blood Culture - Final Escherichia coli 04/23/24 15:00 Blood Culture (Wb) - Central Line Blood Culture - Final Escherichia coli 04/23/24 16:35 Wound - Nose Skin and Soft Tissue MRSA/MSSA (PCR - Final Meth. resistant Staph. aureus 04/23/24 16:15 Mucosa - Nasopharyngeal Respiratory Panel (PCR) - Final 04/23/24 16:35 Urine Catheter - Matos Legionella Antigen - Final 04/23/24 16:35 Urine Catheter - Matos Streptococcus pneumoniae Antigen (M - Final D/C Instructions Discharge Diet: Carb Control Diet Call your doctor if you observe: Fever of 101 or Higher, Shortness of breath, Dizziness, Fainting spells, Swelling in the ankles, Chest pain and Increased palpitations (irregular heartbeat) DC O2, CPAP, BIPAP Needs Home O2 Discharge instructions: No Meaningful Use Info Meaningful Use Meaningful Use Diagnoses (Choose all that apply): None applicable Ischemic Stroke Statin Dosing Therapy Reference: STATIN DOSE THERAPY REFERENCE: * Patients > 75 years receive moderate or high dose statin therapy. * Patients 75 years or YOUNGER should receive HIGH intensity statin dose unless contraindicated. You will be required to document reason for non-treatment if statin daily dose does not meet guidelines. HIGH DOSE STATIN THERAPY DAILY Atorvastatin > than or = to 40 mg Rosuvastatin > than or = to 20 mg Amlodipine + Atorvastatin > than or = to 2.5/40 mg Ezetimibe + Simvastatin 10/80 mg Simvastatin 80mg Discharge Plan Admission Admit Date/Time: 04/23/24 13:56 Attending Provider: Farhad Ma Primary Care Provider: Fely Bose Consulting Providers: Herminia Rojas; Kandace Arias Discharge Orders/Prescriptions Prescriptions: New cefdinir 300 mg capsule 300 mg PO BID Qty: 14 0RF Continued (DME) pen needle, diabetic 31 gauge x 1/4 needle See Rx Instructions .Route Qty: 100 0RF Rx Instructions: As directed cyclobenzaprine 5 mg PO TID PRN PRN (Reason: MUSCLE SPASMS) doxepin 25 mg capsule 25 mg PO QHS 30 Days Qty: 30 0RF quetiapine 200 mg tablet 200 mg PO QHS 30 Days Qty: 30 0RF quetiapine 100 mg tablet 100 mg PO DAILY 30 Days Qty: 30 0RF Rx Instructions: takes in morning buspirone 10 MG tablet 10 mg PO TID 30 Days Qty: 90 0RF hydroxyzine pamoate [Vistaril] 25 mg capsule 50 mg PO TID 30 Days Qty: 180 0RF insulin lispro 100 unit/mL insulin pen See Protocol subcut ACHS 30 Days Qty: 15 0RF Protocol: 5. Sliding Scale Insulin High Dosing Condition: 150-209 mg/dl = 3 units Condition: 210-259 mg/dl = 6 units Condition: 260-324 mg/dl = 9 units Condition: 325-374 mg/dl = 12 units Condition: 375-409 mg/dl = 14 units Condition: 410-449 mg/dl = 16 units Condition: Greater than 449 call physician Protocol Text: Suggested for: - Patients on Total Daily Insulin Dose of 81-120 units - Very insulin resistant patients HIGH DOSING ALGORITHM Rx Instructions: subcutaneously; aripiprazole 5 mg tablet 5 mg PO DAILY 30 Days Qty: 30 0RF insulin glargine [Lantus Solostar U-100 Insulin] 100 unit/mL (3 mL) insulin pen 35 unit subcut BIDCM 30 Days Qty: 15 0RF Linzess 72 mcg capsule 72 mcg PO DAILY 30 Days Qty: 30 0RF gabapentin 300 mg capsule 300 mg PO TID Referrals / Follow Up: Fely Bose MD [Primary Care Provider] - Within 1 Week Disposition Disposition (needs filled in before D/C Order can be placed): Home, Self Care Charges/Coding Visit Charges Inpatient E&M: 08209 Disch Hosp >30min
[2024-04-29 16:19] LABS: Pathologist Review Reviewed
[2024-05-02 23:07] LABS: HEPATITIS B SURFACE AG Negative (Negative); Hep C Antibodies Reactive (Non Reactive); Hepatitis A IgM Antibody Negative (Negative); Hepatitis B Core AB IgM Negative (Negative)
== END 2024-04-29 14:03 | disposition home or self-care (01) | DRG 871 ==
LOC: ED 15:12 → ICU 15:18
PROVIDERS: Internal Medicine; Admitting Provider Family Medicine; Emergency Provider Emergency Medicine; PCP Internal Medicine; Visit Provider Family Medicine
DX: A41.51 Sepsis due to Escherichia coli [E. coli] (principal); E10.10 Type 1 diabetes mellitus with ketoacidosis without coma; R65.21 Severe sepsis with septic shock; G93.41 Metabolic encephalopathy; J18.9 Pneumonia, unspecified organism; J93.9 Pneumothorax, unspecified; N17.9 Acute kidney failure, unspecified; E87.1 Hypo-osmolality and hyponatremia; N39.0 Urinary tract infection, site not specified; N12 Tubulo-interstitial nephritis, not specified as acute or chronic; I27.20 Pulmonary hypertension, unspecified; E88.09 Other disorders of plasma-protein metabolism, not elsewhere classified; J44.9 Chronic obstructive pulmonary disease, unspecified; F31.9 Bipolar disorder, unspecified; F19.10 Other psychoactive substance abuse, uncomplicated; I10 Essential (primary) hypertension; E10.40 Type 1 diabetes mellitus with diabetic neuropathy, unspecified; K76.0 Fatty (change of) liver, not elsewhere classified; D69.6 Thrombocytopenia, unspecified; F17.210 Nicotine dependence, cigarettes, uncomplicated; E78.5 Hyperlipidemia, unspecified; Z79.4 Long term (current) use of insulin; E10.69 Type 1 diabetes mellitus with other specified complication; D86.9 Sarcoidosis, unspecified; K21.9 Gastro-esophageal reflux disease without esophagitis; E87.6 Hypokalemia; F41.9 Anxiety disorder, unspecified; M79.7 Fibromyalgia; E10.65 Type 1 diabetes mellitus with hyperglycemia; E10.628 Type 1 diabetes mellitus with other skin complications; E86.0 Dehydration; K42.9 Umbilical hernia without obstruction or gangrene; Z79.891 Long term (current) use of opiate analgesic; R79.89 Other specified abnormal findings of blood chemistry; R50.9 Fever, unspecified; Z79.2 Long term (current) use of antibiotics; Z79.51 Long term (current) use of inhaled steroids; G89.29 Other chronic pain; Z79.899 Other long term (current) drug therapy; T38.3X6A Underdosing of insulin and oral hypoglycemic [antidiabetic] drugs, initial encounter; Y95 Nosocomial condition
CPT/HCPCS: 36600; 71045; 71260; 74177; 80048; 80053; 80074; 80076; 80202; 80307; 81001; 82009; 82040; 82550; 82803; 82962; 83036; 83540; 83550; 83605; 83615; 83735; 84100; 84145; 84439; 84443; 85025; 87040; 87077; 87186; 87449; 87522; 87633; 87640; 92526; 92610; 93005; 93306; 94640; 94668; 94762; 97163; 97166; 97530; 97535; 97802; 99285; 99406; Q9967; A4216; J0696; J2405

== ENCOUNTER 2024-04-29 18:42 | Inpatient (IN) | payer MEDICARE, MEDICAID, SELFPAY ==
[2024-04-29] VITALS (18 sets, daily range): BP systolic 143–163; BP diastolic 70–94; PULSE 79–109; RESP 18–58; TEMP 35.9–37; O2SAT 97–100; BMI 31.6; BMI 30.7
--- NOTE | 2024-04-29 19:18 | CT_ITS ---
STUDY: CT CHEST, ABDOMEN T PELVIS WITH CONTRAST REASON FOR EXAM: Female, 53 years old. fall back pain, recent pneumothorax -- TRAUMA ONLY: IV Contrast. Dont wait for creatinine RADIATION DOSAGE (If Supplied By Facility): CTDIvol = ( 22.09 ) mGy, DLP = ( 2429.72 ) mGycm TECHNIQUE: Transaxial imaging was performed following intravenous administration of IV 100mL Isovue-370. The protocol utilizes one or more of the following dose reduction techniques: automated exposure control, adjustment of mA and/or kV according to patient size,and/or use of iterative reconstruction technique. COMPARISON: FINDINGS: CHEST Mild effusions bilaterally. Left basilar infiltrate. Normal heart and pericardium. Normal mediastinum. Normal hilar regions. Normal unenhanced pulmonary arteries. Normal aorta arch and descending thoracic aorta. Normal osseous structures. ABDOMEN Mild cirrhosis of the liver. Status post cholecystectomy. No dilatation of the extrahepatic biliary system. Slightly enlarged spleen. Normal pancreas. Mild ascites. Normal bilateral adrenal glands. Bilateral renal cysts. Possible punctate right renal stone. Normal visualized stomach. Normal small intestine. Normal colon. The appendix is not visualized. Normal abdominal aorta. Normal inferior vena cava. Normal retroperitoneum. Subcutaneous edema of the abdominal wall laterally. Fatty umbilical hernia. Normal osseous structures. PELVIS Slight wall thickening of urinary bladder. Normal visualized small intestine. Normal visualized colon. There is moderate pelvic fluid. There is no pelvic lymphadenopathy or mass lesion. Normal visualized pelvic arteries. CT/CT Chest, Abd, Pel w/Contrast IMPRESSION: Mild effusions bilaterally. Left basilar infiltrate. Cirrhosis. Mild splenomegaly. Mild ascites and pelvic fluid. Slight wall thickening of the urinary bladder. Subcutaneous edema of the abdominal wall laterally. Fatty umbilical hernia. Electronically Signed: Solomon Bach DO at 21:04 EST Reading Location ID and State: [facility] / [place] Tel [phone], Service support ,
--- NOTE | 2024-04-29 19:18 | CT_ITS ---
STUDY: CT BRAIN WITHOUT CONTRAST REASON FOR EXAM: Female, 53 years old. Trauma RADIATION DOSAGE (If Supplied By Facility): CTDIvol = ( 44.99 ) mGy, DLP = ( 829.85 ) mGycm TECHNIQUE: Transaxial CT imaging of the brain was performed without administration of intravenous contrast material. Individualized dose optimization techniques were used for this CT. COMPARISON: No relevant priors. FINDINGS: Right frontal scalp focal swelling/hematoma. Normal calvarium. Normal size ventricles and extra-axial spaces for the patient''s age. Normal white matter tracts of the cerebral hemispheres. Normal basal ganglia and thalami. Normal brainstem. Normal cerebellum. There is no intracranial hemorrhage. There are no findings of an acute ischemic infarction. Normal visualized paranasal sinuses. CT/Brain/Head without Contrast IMPRESSION: No acute intracranial pathology of the brain. Right frontal scalp swelling/hematoma. Electronically Signed: Solomon Bach DO at 20:38 EST ,
--- NOTE | 2024-04-29 19:18 | CT_ITS ---
STUDY: CT CERVICAL SPINE WITHOUT CONTRAST REASON FOR EXAM: Female, 53 years old. Trauma RADIATION DOSAGE (If Supplied By Facility): CTDIvol = ( 22.15 ) mGy, DLP = ( 427.27 ) mGycm TECHNIQUE: High resolution transaxial imaging was performed without contrast material. Sagittal and coronal images were reconstructed. Individualized dose optimization techniques were used for this CT. COMPARISON: None FINDINGS: Normal craniovertebral junction. Normal anterior atlantoaxial articulation. Normal odontoid process. Normal cervical lordosis. Normal vertebral bodies and posterior osseous elements. C2-3: Normal endplates. Normal disc height and morphology. Normal central canal and intervertebral neuroforamina. C3-4: Normal endplates. Normal disc height and morphology. Normal central canal and intervertebral neuroforamina. C4-5: Normal endplates. Normal disc height and morphology. Normal central canal and intervertebral neuroforamina. C5-6: Mild degenerative spurs at the endplates. Narrowed disc height. Normal central canal. Uncovertebral spurs slightly narrowing the intervertebral neuroforamina. C6-7: Normal endplates. Normal disc height and morphology. Normal central canal and intervertebral neuroforamina. C7-T1: Normal endplates. Normal disc height and morphology. Normal central canal and intervertebral neuroforamina. Normal visualized soft tissue structures. CT/Spine Cervical without Contras IMPRESSION: No acute bony injury of the cervical spine. Electronically Signed: Solomon Bach DO at 20:45 EST Reading Location ID and State: [facility] / [place] Tel [phone], Service support ,
[2024-04-29 19:25] LABS: Hematocrit 38.6 % (37-47); Hemoglobin 12.8 g/dL (12.0-15.0); Mean Corp Hgb Conc 33.2 g/dL (32-36); Mean Corpuscular Hgb 27.6 pg (27.0-32.0); Mean Corpuscular Volume 83.2 fL (81-99); Mean Platelet Vol. 10.4 fl (6.2-12.0); POSITIVE COUNT YES; POSITIVE MORPHOLOGY YES; Platelet Count 292 K/mm3 (150-450); RBC Distribution Width CV 14.1 % (11.6-14.6); RBC Distribution Width SD 42.2 fl (35.1-43.9); Red Blood Count 4.64 M/mm3 (4.2-5.4); White Blood Count 21.5 K/mm3 (4.4-11.0)
[2024-04-29 19:37] LABS: International Normalized Ratio 0.9; Prothrombin Time (Protime)PT. 12.8 SECONDS (11.7-14.9)
[2024-04-29 19:38] LABS: Partial Thromboplast Time 27.1 Seconds (24.1-36.2)
[2024-04-29] MEDS: 0.9% Normal Saline (1000mL) 1,000 ML 999 ML IV ×4 (19:39→23:46)
[2024-04-29] MEDS: Diphth,Pertuss(Acell),Tet Vac 0.5 ML Vial IM (19:40)
[2024-04-29 19:50] LABS: Bacteria 0 SEEN /hpf (None Seen); Mucous, Urine 0 SEEN /hpf (<or=2+); White Blood Cells 0 SEEN /hpf (0-5)
[2024-04-29 19:56] LABS: Color, Urine Yellow (Yellow); Glucose, Dipstick 1000 mg/dl (Normal); Ketone-Dipstick Negative (Negative); Leukocyte Esterase-Dipstick Negative /ul (Negative); Nitrite-Dipstick Negative (Negative); Occult Blood-Urine 25 /ul (Negative); Protein-Dipstick 15 mg/dl (Negative); Urine Bilirubin Dipstick Negative (Negative); Urine Clarity Clear (Clear); Urine Urobilinogen Normal (Normal); Urine pH 6.5 (5.0 - 8.0)
[2024-04-29 20:00] LABS: ALB/GLOB Ratio 0.4 RATIO (0.9-2.4); AST(SGOT) 30 U/L (15-37); Alanine Aminotransfer ALT/SGPT 30 U/L (13-56); Alkaline Phosphatase 311 U/L (45-117); Anion Gap 10 (5-15); BUN 17 mg/dL (7-18); BUN/Creat Ratio 19.5 RATIO (10-20); Calcium,Total 8.4 mg/dL (8.5-10.1); Chloride 103 mmol/L (98-107); Creatinine, Serum 0.87 mg/dL (0.55-1.02); EST Glomerular Filtration Rate 72 mL/min (>60); Est Glom Filt Rate - Afr Amer 87 mL/min (>60); Estimated Creatinine Clearance 81.18 ml/min; Globulin 4.5 g/dL (2.2-4.2); Glucose 400 mg/dL (74-106); Potassium 3.7 mmol/L (3.5-5.1); Protein, Total 6.5 g/dL (6.4-8.2); Sodium Level 138 mmol/L (136-145); Troponin-I HS 16 pg/mL (3.0-54.0)
[2024-04-29 20:05] LABS: Differential Indicated MANUAL DIFF
[2024-04-29 20:13] LABS: Red Blood Cells-Urine 0-5 SEEN /hpf (0-5)
[2024-04-29 20:14] LABS: Amorphous Sediment 1+ URATE; Squamous Epithelial Cells - UA 5-10 SEEN /hpf (5-10)
--- NOTE | 2024-04-29 20:17 | EDS_ITS ---
HPI History of Present Illness Chief Complaint: Fall Narrative Narrative: Patient is a 53-year-old female with a past medical history of anxiety, depression, bipolar disorder, substance abuse, COPD, hypertension, diabetes, sarcoidosis who presented to the emerged from chief complaint of fall. Patient states that she was recently discharged from [facility] around 2:00 this afternoon and states that she was here for a really bad kidney infection a collapsed lung and high blood sugars. She states that she felt like she was doing much better and was sent home today. States that she went home and on her way into the house she tripped over a rug causing her to fall forward landed on her face. States that she did not pass out she denies any blood thinner medications. Patient states that she is extremely weak and cannot care for herself. She states that it took several people to get her to stand up off the ground and off the couch she states that she is too weak to ambulate. Patient states that her blood glucose is noted to be high again. States that she was sent home on oral antibiotics. [facility] Medical History Substance abuse Smoker MRSA (methicillin resistant staph aureus) culture positive Hearing loss, left Cancer Anxiety Depression Bipolar disorder GERD (gastroesophageal reflux disease) Cirrhosis Hepatitis Smoker On home oxygen therapy COPD (chronic obstructive pulmonary disease) Failure of outpatient treatment Abnormal EKG Preoperative cardiovascular examination Abdominal wall abscess Hypertension Neuropathy Diabetes Sarcoidosis Home Medications ?Medication ?Instructions ?Recorded ?Last Taken ?Type pen needle, diabetic 31 gauge x #100 ea 02/08/24 Unknown Rx 1/4 cyclobenzaprine 5 mg PO TID PRN PRN MUSCLE SPASMS 02/20/24 Unknown History aripiprazole 5 mg tablet 5 mg PO DAILY antidepressant 30 02/29/24 Unknown Rx days #30 tabs buspirone 10 mg tablet 10 mg PO TID depression 30 days 02/29/24 Unknown Rx #90 tabs doxepin 25 mg capsule 25 mg PO QHS bipolar 30 days #30 02/29/24 Unknown Rx caps hydroxyzine pamoate 25 mg capsule 50 mg (2 x 25 mg) PO TID anxiety 02/29/24 Unknown Rx (Vistaril) 30 days #180 caps insulin glargine 100 unit/mL (3 35 unit (0.35 mL) subcut BIDCM 02/29/24 Unknown Rx mL) subcutaneous pen (Lantus blood sugar 30 days #15 mL Solostar U-100 Insulin) insulin lispro 100 unit/mL See Protocol subcut ACHS blood 02/29/24 Unknown Rx subcutaneous pen sugar 30 days #15 mL linaclotide 72 mcg capsule 72 mcg PO DAILY bowels 30 days #30 02/29/24 Unknown Rx (Linzess) caps quetiapine 100 mg tablet 100 mg PO DAILY bipolar 30 days 02/29/24 Unknown Rx #30 tabs quetiapine 200 mg tablet 200 mg PO QHS bipolar 30 days #30 02/29/24 Unknown Rx tabs gabapentin 300 mg capsule 300 mg PO TID 04/23/24 Unknown History cefdinir 300 mg capsule 300 mg PO BID #14 caps 04/29/24 Unknown Rx quetiapine 100 mg tablet (Seroquel) 100 mg PO DAILY 04/29/24 Unknown History Allergy/AdvReac Type Severity Reaction Status Date / Time aspirin AdvReac Other Verified 04/29/24 18:43 hydromorphone (From Dilaudid) AdvReac Other Verified 04/29/24 18:43 pseudoephedrine HCl (From AdvReac Other Verified 04/29/24 18:43 Sudafed) Surgical History History of cholecystectomy Hx of brain surgery Hx of appendectomy Hx of section Hx of total adrenalectomy Social History household members: none Smoking Status: Current every day smoker tobacco type: cigarettes quit status: considering quitting alcohol intake: never substance use type: former substance user ROS ROS ED ROS Narrative Constitutional: Complains of headache denies any lightness dizziness, fevers or chills Eyes: Denies any change in vision double vision blurry vision Cardiovascular: Denies chest pain or palpitations Respiratory: Denies coughing wheezing shortness of breath Abdomen: Complains of left-sided abdominal pain denies nausea vomiting diarrhea : Denies any pain phonation, hematuria, polyuria Neurological: Denies any numbness, weakness, tingling Musculoskeletal: Complains of back pain and diffuse body aches Skin: Denies rashes or lesions EXAM Physical Exam Narrative Exam Narrative: General: Patient was lying in bed rest comfortably did not appear to be in acute distress Head: Atraumatic, normocephalic Eyes: PERRL bilaterally, EOMI bilateral, no conjunctival injection noted Neck: Soft, supple, trachea midline Cardiovascular: Patient tachycardic with a regular rhythm no murmurs gallops rubs noted Respiratory: Clear to auscultation bilaterally Abdomen: Soft, nondistended, tenderness palpation the left side of her abdomen upper and lower, no rebound or guarding on exam, bowel sounds present x 4 Extremities: +4/5 strength noted in the bilateral upper and lower extremities, radial pulses +2/4 in the bilateral upper extremities Neurological: Patient following commands knew that she was at [facility] year is 2024 NIH of 0 GCS 15 Skin: Warm, dry, intact no rashes or lesions noted Const Vital Signs: 04/29/24 18:43 04/29/24 18:46 04/29/24 18:46 Temperature 98.6 F 98.6 F Temperature Source Oral Oral Pulse Rate 109 H 104 H Respiratory Rate 18 18 Respiratory Effort Normal Respiratory Depth Normal Respiratory Pattern Normal Blood Pressure 159/85 H 159/85 H Blood Pressure Mean 109 109 Pulse Ox 97 98 Oxygen Delivery Method Room Air Room Air Room Air 04/29/24 19:46 04/29/24 20:04 04/29/24 20:42 Temperature 98.0 F Temperature Source Temporal Pulse Rate 92 Respiratory Rate 22 H Respiratory Effort Respiratory Depth Respiratory Pattern Blood Pressure 156/70 H Blood Pressure Mean 98 Pulse Ox 99 100 Oxygen Delivery Method Room Air Room Air Room Air 04/29/24 21:00 04/29/24 21:25 Temperature 98.3 F 97.9 F Temperature Source Temporal Pulse Rate 95 95 Respiratory Rate 20 H 18 Respiratory Effort Respiratory Depth Respiratory Pattern Blood Pressure 158/82 H 163/72 H Blood Pressure Mean 107 102 Pulse Ox 100 99 Oxygen Delivery Method Room Air MDM MDM MDM Narrative Medical decision making narrative: Patient is a 53-year-old female who presents to the emergency department chief complaint of fall secondary to tripping over a rug landing on her face and generalized weakness. On the differential diagnose includes but not limited to intracranial hemorrhage, cervical spine fracture, tibial plateau fracture, dis cosme femur fracture, DKA, urinary tract infection. Once workup is obtained reviewed she will be reevaluated. Patient be given IV fluids 30 cc/kg bolus based on ideal body weight as her BMI is greater than 30. Patient's CBC reviewed and was significant for leukocytosis of 21,000 earlier today was noted to be 15,000, hemoglobin 12.8, platelet count noted to be 292. Patient's sodium was noted 130, potassium 3.7, creatinine normal at 0.87. Patient's glucose was noted to be 400 she was given 15 units of subcutaneous insulin, lactic acidosis of 4. Patient's AST and ALT were 30 and 30 respective ly. Patient's urinalysis reviewed showed negative nitrates negative leukocyte esterase and 0 white blood cells as well as no bacteria noted. Patient's x-ray of her right knee reviewed by myself and by radiology showed mild effusion, patient's x-ray of her right femur reviewed by myself by radiology showed no acute fracture or dislocation. Patient's CT head and brain without contrast showed a right frontal scalp swelling hematoma otherwise no acute intracranial pathology. [place] CT cervical spine reviewed as well showed no acute fractures of the cervical spine no acute bony injury. Patient's CT chest abdomen pelvis with IV contrast was reviewed and showed mild effusions bilaterally. Left basilar infiltrate. Cirrhosis. Mild splenomegaly with mild ascites and pelvic fluid. Slight wall thickening of the urinary bladder. Subcutaneous edema of the abdominal wall laterally fatty umbilical hernia noted. Patient's EKG reviewed and independently interpreted myself showed sinus rhythm with a rate of 94 bpm. I did review the patient's micro results and she did test positive for MRSA on her nasal swab as well as her urinalysis did show sensitivity to Rocephin. At this point time patient will given vancomycin and Rocephin for questionable left-sided pneumonia. Patient's case will be discussed with hospitalist for admission. Discussed case with hospitalist Dr. Andersen who accept patient for admission. Patient was notified with all question concerns answered at bedside. Patient was agreeable to placement for rehab after hospitalization. Reperfusion assessment performed at 214 no evidence hypotension therefore no vasopressors indicated she is actually hypertensive. Lab Data Labs: Laboratory Results - last 24 hr 04/29/24 04/29/24 04/29/24 18:38 19:45 20:16 WBC 21.5 H RBC 4.64 Hgb 12.8 Hct 38.6 MCV 83.2 MCH 27.6 MCHC 33.2 RDW Std Deviation 42.2 RDW Coeff of Cele 14.1 Plt Count 292 MPV 10.4 Neut % (Auto) Not Reportable Absolute Neuts (auto) 14.2 H Absolute Lymphs (auto) 2.58 Total Counted 100 Neutrophils % (Manual) 62 Band Neutrophils % 4 Lymphocytes % (Manual) 12 L Monocytes % (Manual) 8 Eosinophils % (Manual) 2 Basophils % (Manual) 1 Metamyelocytes % 5 H Myelocytes % 6 H Diff Path Review May foll Atypical Lymphocytes RARE Toxic Granulation RARE Platelet Estimate ADEQUATE RBC Morphology NORM C+C Anisocytosis RARE Microcytosis RARE Ovalocytes RARE PT 12.8 INR 0.9 APTT 27.1 Sodium 138 Potassium 3.7 Chloride 103 Carbon Dioxide 25.0 Anion Gap 10 BUN 17 Creatinine 0.87 Estim Creat Clear Calc 81.18 Est GFR (MDRD) Af Amer 87 Est GFR (MDRD) Non-Af 72 BUN/Creatinine Ratio 19.5 Glucose 400 H Lactic Acid 4.0 H* Calcium 8.4 L Total Bilirubin 0.30 AST 30 ALT 30 Alkaline Phosphatase 311 H Troponin I High Sens 16 Total Protein 6.5 Albumin 2.0 L Globulin 4.5 H Albumin/Globulin Ratio 0.4 L Urine Color Yellow Urine Clarity Clear Urine pH 6.5 Ur Specific [place] 1.010 Urine Protein 15 H Urine Glucose (UA) 1000 H Urine Ketones Negative Urine Occult Blood 25 H Urine Nitrite Negative Urine Bilirubin Negative Urine Urobilinogen Normal Ur Leukocyte Esterase Negative Urine RBC 0-5 SEEN Urine WBC 0 SEEN Ur Squamous Epith Cells 5-10 SEEN Amorphous Sediment 1+ URATE Urine Bacteria 0 SEEN Urine Mucus 0 SEEN POC Glucose 377 H Radiography Diagnostic Testing: Clinical Impression(s) from Imaging Studies Brain CT 04/29/24 19:18 IMPRESSION: No acute intracranial pathology of the brain. Right frontal scalp swelling/hematoma. Electronically Signed: Solomon Bach DO at 20:38 EST , Cervical Spine CT 04/29/24 19:18 IMPRESSION: No acute bony injury of the cervical spine. Electronically Signed: Solomon Bach DO at 20:45 EST , Chest/Abdomen/Pelvis CT 04/29/24 19:18 IMPRESSION: Mild effusions bilaterally. Left basilar infiltrate. Cirrhosis. Mild splenomegaly. Mild ascites and pelvic fluid. Slight wall thickening of the urinary bladder. Subcutaneous edema of the abdominal wall laterally. Fatty umbilical hernia. Electronically Signed: Solomon Bach at 21:04 EST , Femur X-Ray 04/29/24 20:35 IMPRESSION: Negative. Electronically Signed: Solomon Bach at 21:06 EST , Knee X-Ray 04/29/24 20:35 IMPRESSION: Mild effusion. Electronically Signed: Solomon Bach DO at 21:07 EST , Discharge Plan Triage Chief Complaint: Fall ED Provider: Yonas Mccullough Dx/Rx/DC Orders Clinical Impression: Generalized weakness, Fall, Pneumonia, Bilateral pleural effusion, Acidosis, lactic Prescriptions: No Action (DME) pen needle, diabetic 31 gauge x 1/4 needle See Rx Instructions .Route Qty: 100 0RF Rx Instructions: As directed cyclobenzaprine 5 mg PO TID PRN PRN (Reason: MUSCLE SPASMS) doxepin 25 mg capsule 25 mg PO QHS 30 Days Qty: 30 0RF quetiapine 200 mg tablet 200 mg PO QHS 30 Days Qty: 30 0RF quetiapine 100 mg tablet 100 mg PO DAILY 30 Days Qty: 30 0RF Rx Instructions: takes in morning buspirone 10 MG tablet 10 mg PO TID 30 Days Qty: 90 0RF hydroxyzine pamoate [Vistaril] 25 mg capsule 50 mg PO TID 30 Days Qty: 180 0RF insulin lispro 100 unit/mL insulin pen See Protocol subcut ACHS 30 Days Qty: 15 0RF Protocol: 5. Sliding Scale Insulin High Dosing Condition: 150-209 mg/dl = 3 units Condition: 210-259 mg/dl = 6 units Condition: 260-324 mg/dl = 9 units Condition: 325-374 mg/dl = 12 units Condition: 375-409 mg/dl = 14 units Condition: 410-449 mg/dl = 16 units Condition: Greater than 449 call physician Protocol Text: Suggested for: - Patients on Total Daily Insulin Dose of 81-120 units - Very insulin resistant patients HIGH DOSING ALGORITHM Rx Instructions: subcutaneously; aripiprazole 5 mg tablet 5 mg PO DAILY 30 Days Qty: 30 0RF insulin glargine [Lantus Solostar U-100 Insulin] 100 unit/mL (3 mL) insulin pen 35 unit subcut BIDCM 30 Days Qty: 15 0RF Linzess 72 mcg capsule 72 mcg PO DAILY 30 Days Qty: 30 0RF gabapentin 300 mg capsule 300 mg PO TID cefdinir 300 mg capsule 300 mg PO BID Qty: 14 0RF quetiapine [Seroquel] 100 mg tablet 100 mg PO DAILY Primary Care Provider: Fely Bose Referrals: Fely Bose MD [Primary Care Provider] - Print Language: Upper Sorbian Disposition Disposition: Acute Care Hospital [facility]
[2024-04-29] MEDS: Insulin Lispro 100 UNIT/ML INSULN.PEN 15 UNIT SC (20:27)
[2024-04-29 20:35] LABS: Bedside Glucose 377 mg/dL (74-106)
--- NOTE | 2024-04-29 20:35 | RAD_ITS ---
INDICATION: fall EXAMINATION/TECHNIQUE: X-RAY - RIGHT XR Femur 4 VIEWS COMPARISON: FINDINGS: SOFT TISSUES: No soft tissue swelling or gas. No radiopaque foreign body. BONES/JOINTS: No acute fracture or subluxation.. Normal alignment. Preservation of the joint space.. No sclerotic or destructive changes observed. RAD/Femur Min 2 Views IMPRESSION: Negative. Electronically Signed: Solomon Bach DO at 21:06 EST ,
--- NOTE | 2024-04-29 20:35 | RAD_ITS ---
INDICATION: fall pian EXAMINATION/TECHNIQUE: X-RAY - RIGHT XR Knee 3 Views 3 VIEWS COMPARISON: FINDINGS: SOFT TISSUES: No soft tissue swelling or gas. No radiopaque foreign body. Mild effusion. BONES/JOINTS: No acute fracture or subluxation.. Normal alignment. Preservation of the joint space.. No sclerotic or destructive changes observed. RAD/Knee 3 Views IMPRESSION: Mild effusion. Electronically Signed: Solomon Bach DO at 21:07 EST ,
[2024-04-29 21:06] LABS: Basophil 1 % (0-1); Eosinophil 2 % (0-5); Lymphocyte 12 % (19-41); Metamyelocyte 5 % (0-1); Monocyte 8 % (0-10); Myelocyte 6 % (0-0); Neutrophil-Band 4 % (0-5); Neutrophil-Segmented 62 % (47-70); Total Cells Counted 100 (MANUAL DIFF)
[2024-04-29 21:09] LABS: Absolute Lymphocyte Count 2.58 X10^3/uL (0.83-4.51); Absolute Neutrophil Count 14.2 X10^3/uL (2.0-7.7)
[2024-04-29 21:10] LABS: Anisocytosis RARE; Atypical Lymphocyte RARE %; Microcytosis RARE; Ovalocyte RARE; Platelet Estimate ADEQUATE (ADEQ); Red Cell Morphology NORM C+C NORMAL (NORM C&C); Toxic Granulation RARE
[2024-04-29] MEDS: Ondansetron 4 MG/2 ML Vial IV (21:13)
[2024-04-29] MEDS: Ketorolac 15 MG/ML Vial IV (21:14)
--- NOTE | 2024-04-29 21:31 | PCM.HP.STD ---
[facility] - General General Date of Admission: 04/29/24 Date of Service: 04/29/24 Chief Complaint: Fall at Home. HPI Narrative ANA CRISTINA THOMAS, is a 53 F with a past medical history of tobacco abuse, history of HEBER, DM-2; uncontrolled with hyperglycemia, diabetic neuropathy, obesity; with BMI of 30.7 this admission, history of sarcoidosis, GERD, history of brain surgery, history of cocaine abuse, bipolar disorder, history of suicide attempt via intentional drug overdose, history of perirectal abscess, history of Right total adrenalectomy, history of appendectomy, remote history of , OA; with low back pain, history of cellulitis with a large Left lower abdominal wall abscess admitted here from 11/11/2023 to 11/14/2023 that was complicated by medical noncompliance with patient then leaving this hospital AMA and then also not getting her prescriptions filled and recently diagnosed Cellulitis of the Right Foot ~12 weeks ago at another local hospital followed by an admission here from February 08, 2024 to February 09, 2024 for Cellulitis of the Right Foot with an accompanying DFU of the second toe of the Right Foot attributable to Medical Noncompliance with her insulin and suspected Failure of Outpatient Antibiotic Treatment followed by another very recent admission here from April 23, 2024 to April 29, 2024 with patient just discharged earlier today after being treated for acute encephalopathy secondary to DKA complicated by KASSY and lactic acidosis with the patient requiring chest tube placement for iatrogenic pneumothorax on April 24, 2024 after Right subclavian CVC performed in ER on admission who re-presents to [facility] ER complaining of a fall shortly after arriving home causing her to return. Ms. Thomas reports she was discharged home from this facility around 14:00 hrs. earlier today after she had initially felt like she was getting much better. She then went home and on her way in the house she tripped over a rug causing her to fall forward and land on her face. She states that she did not lose consciousness and she is currently not on blood thinning medications. She noted that she was extremely weak and was unable to get off the ground by herself. She states it took several people to help her stand up and get to the couch and now she is too weak to ambulate. She states she can no longer care for herself in addition to noting that her blood sugar is also been elevated to 377 mg/dL. She went on to state that she was encouraged to stay in the hospital but she regrets not following the recommendations for her to stay. In the ER she was noted to have Leukocytosis of 21.5K and Lactic Acidosis of 4 mmoL/L present on admission with CT evidence of mild effusions bilaterally and Left basilar infiltrate with evidence of cirrhosis, mild splenomegaly and mild ascites and pelvic fluid in addition to slight wall thickening of the urinary bladder and subcutaneous edema of the abdominal wall laterally with an incidentally noted fatty umbilical hernia. She was then diagnosed with LLL infiltrate consistent with possible Nosocomial Pneumonia with leukocytosis and lactic acidosis concerning for possible early Sepsis complicated by fall at home with CT of the head revealing Right frontal scalp swelling/hematoma with no acute intracranial pathology of the brain all culminating to cause Generalized Weakness with Ambulatory Dysfunction and she was then admitted to the general medical floor for ongoing care for stay that is expected to extend beyond 2 midnights. [facility] Medical History (Updated 04/30/24 @ 04:[address] Vicente Mao, DO) Diabetic ulcer of foot associated with diabetes mellitus due to underlying condition, with bone involvement without evidence of necrosis Substance abuse Smoker MRSA (methicillin resistant staph aureus) culture positive Hearing loss, left Cancer Anxiety Depression Bipolar disorder GERD (gastroesophageal reflux disease) Cirrhosis Hepatitis Smoker On home oxygen therapy COPD (chronic obstructive pulmonary disease) Failure of outpatient treatment Abnormal EKG Preoperative cardiovascular examination Abdominal wall abscess Hypertension Neuropathy Diabetes Sarcoidosis Home Medications ?Medication ?Instructions ?Recorded ?Last Taken ?Type pen needle, diabetic 31 gauge x #100 ea 02/08/24 Unknown Rx 1/4 cyclobenzaprine 5 mg PO TID PRN PRN MUSCLE SPASMS 02/20/24 Unknown History aripiprazole 5 mg tablet 5 mg PO DAILY antidepressant 30 02/29/24 Unknown Rx days #30 tabs buspirone 10 mg tablet 10 mg PO TID depression 30 days 02/29/24 Unknown Rx #90 tabs doxepin 25 mg capsule 25 mg PO QHS bipolar 30 days #30 02/29/24 Unknown Rx caps hydroxyzine pamoate 25 mg capsule 50 mg (2 x 25 mg) PO TID anxiety 02/29/24 Unknown Rx (Vistaril) 30 days #180 caps insulin glargine 100 unit/mL (3 35 unit (0.35 mL) subcut BIDCM 02/29/24 Unknown Rx mL) subcutaneous pen (Lantus blood sugar 30 days #15 mL Solostar U-100 Insulin) insulin lispro 100 unit/mL See Protocol subcut ACHS blood 02/29/24 Unknown Rx subcutaneous pen sugar 30 days #15 mL linaclotide 72 mcg capsule 72 mcg PO DAILY bowels 30 days #30 02/29/24 Unknown Rx (Linzess) caps quetiapine 100 mg tablet 100 mg PO DAILY bipolar 30 days 02/29/24 Unknown Rx #30 tabs quetiapine 200 mg tablet 200 mg PO QHS bipolar 30 days #30 02/29/24 Unknown Rx tabs gabapentin 300 mg capsule 300 mg PO TID 04/23/24 Unknown History cefdinir 300 mg capsule 300 mg PO BID #14 caps 04/29/24 Unknown Rx quetiapine 100 mg tablet (Seroquel) 100 mg PO DAILY 04/29/24 Unknown History Allergy/AdvReac Type Severity Reaction Status Date / Time aspirin AdvReac Other Verified 04/29/24 18:43 hydromorphone (From Dilaudid) AdvReac Other Verified 04/29/24 18:43 pseudoephedrine HCl (From AdvReac Other Verified 04/29/24 18:43 Sudafed) Surgical History History of cholecystectomy Hx of brain surgery Hx of appendectomy Hx of section Hx of total adrenalectomy Social History household members: none Smoking Status: Current every day smoker tobacco type: cigarettes quit status: considering quitting alcohol intake: never substance use type: former substance user ROS ROS Narrative Review of Systems: Constitutional: Patient denies fever or chills. Eyes: Patient denies changes in vision or discharge from eyes.. ENT: Patient denies runny nose, sore throat or ear pain. Resp: Patient denies shortness of breath or cough. CV: Patient denies chest pain, palpitations or heart racing. GI: Patient admits to Left-sided abdominal pain but she denies associated nausea, vomiting, diarrhea or constipation. : Patient denies dysuria or hematuria. MSK: Patient admits to back pain and diffuse body aches after recent fall. Skin: Patient has a Right frontal scalp hematoma but she denies rash, abscess or jaundice. Psych: Patient denies symptoms of uncontrolled depression or anxiety. Neuro: Patient admits to headache but she denies paresthesias or focal neurologic deficits. Allergy: Patient denies lip swelling, tongue swelling or urticaria. Hematology: Patient denies easy bleeding or easy bruisability. Endocrinology: Patient denies polyuria, polydipsia or polyphagia. 14 point review of systems otherwise negative except for positives noted above in HPI. Vital Signs Vital Signs Vital Signs: 04/29/24 18:43 04/29/24 18:46 04/29/24 18:46 Temperature 98.6 F 98.6 F Temperature Source Oral Oral Pulse Rate 109 H 104 H Respiratory Rate 18 18 Respiratory Effort Normal Respiratory Depth Normal Respiratory Pattern Normal Blood Pressure 159/85 H 159/85 H Blood Pressure Mean 109 109 Pulse Ox 97 98 Oxygen Delivery Method Room Air Room Air Room Air 04/29/24 19:46 04/29/24 20:04 04/29/24 20:42 Temperature 98.0 F Temperature Source Temporal Pulse Rate 92 Respiratory Rate 22 H Respiratory Effort Respiratory Depth Respiratory Pattern Blood Pressure 156/70 H Blood Pressure Mean 98 Pulse Ox 99 100 Oxygen Delivery Method Room Air Room Air Room Air 04/29/24 21:00 04/29/24 21:25 Temperature 98.3 F 97.9 F Temperature Source Temporal Pulse Rate 95 95 Respiratory Rate 20 H 18 Respiratory Effort Respiratory Depth Respiratory Pattern Blood Pressure 158/82 H 163/72 H Blood Pressure Mean 107 102 Pulse Ox 100 99 Oxygen Delivery Method Room Air Weight Weight: 190 lb 7.67 oz Body Mass Index (BMI) 31.6 Physical Exam Const alert, oriented x3 and no apparent distress Constitutional Narrative: Obese with chronically ill appearance. General Appearance: cooperative HEENT normocephalic, head/scalp atraumatic, hearing grossly normal bilaterally and moist oral mucous membranes Eyes PERRL and EOMs intact bilaterally Neck no lymphadenopathy and supple Resp Resp Narrative: Diminished breath sounds over Left lower lobe. Cardio regular rate and regular rhythm GI normal to inspection, nondistended, normoactive bowel sounds, soft to palpation, non-tender and non-distended GI Narrative: Obese. Extremity no clubbing, cyanosis or edema Skin Skin Narrative: Patient has Right frontal scalp hematoma but she has no rash, abscess or jaundice. Neuro oriented x3, CN's II-XII intact bilaterally, moves all extremities and no focal motor deficits Neuro Narrative: Patient has +4/5 strength noted in the bilateral upper and lower extremities with good pulses and no signs of vascular compromise. Sensorium / Orientation: awake, alert, oriented to person, oriented to place and oriented to time Speech: speech normal Psych affect normal Results Medical Records Data Attestation: I reviewed the patient's medical records Lab / Micro Data Attestation: I reviewed the patient's lab results. 04/29/24 18:38 04/29/24 18:38 Labs: Laboratory Results - last 24 hr 04/29/24 18:38: WBC 21.5 H, RBC 4.64, Hgb 12.8, Hct 38.6, MCV 83.2, MCH 27.6, MCHC 33.2, RDW Std Deviation 42.2, RDW Coeff of Cele 14.1, Plt Count 292, MPV 10.4, Neut % (Auto) Not Reportable, Absolute Neuts (auto) 14.2 H, Absolute Lymphs (auto) 2.58, Total Counted 100, Neutrophils % (Manual) 62, Band Neutrophils % 4, Lymphocytes % (Manual) 12 L, Monocytes % (Manual) 8, Eosinophils % (Manual) 2, Basophils % (Manual) 1, Metamyelocytes % 5 H, Myelocytes % 6 H, Diff Path Review May foll, Atypical Lymphocytes RARE, Toxic Granulation RARE, Platelet Estimate ADEQUATE, RBC Morphology NORM C+C, Anisocytosis RARE, Microcytosis RARE, Ovalocytes RARE, PT 12.8, INR 0.9, APTT 27.1, Sodium 138, Potassium 3.7, Chloride 103, Carbon Dioxide 25.0, Anion Gap 10, BUN 17, Creatinine 0.87, Estim Creat Clear Calc 81.18, Est GFR (MDRD) Af Amer 87, Est GFR (MDRD) Non-Af 72, BUN/Creatinine Ratio 19.5, Glucose 400 H, Calcium 8.4 L, Total Bilirubin 0.30, AST 30, ALT 30, Alkaline Phosphatase 311 H, Troponin I High Sens 16, Total Protein 6.5, Albumin 2.0 L, Globulin 4.5 H, Albumin/Globulin Ratio 0.4 L 04/29/24 19:45: Lactic Acid 4.0 H*, Urine Color Yellow, Urine Clarity Clear, Urine pH 6.5, Ur Specific Hamilton 1.010, Urine Protein 15 H, Urine Glucose (UA) 1000 H, Urine Ketones Negative, Urine Occult Blood 25 H, Urine Nitrite Negative, Urine Bilirubin Negative, Urine Urobilinogen Normal, Ur Leukocyte Esterase Negative, Urine RBC 0-5 SEEN, Urine WBC 0 SEEN, Ur Squamous Epith Cells 5-10 SEEN, Amorphous Sediment 1+ URATE, Urine Bacteria 0 SEEN, Urine Mucus 0 SEEN 04/29/24 20:16: POC Glucose 377 H Micro: Microbiology 04/29/24 19:27 Mucosa - Nose SARS-CoV-2, Influenza & RSV (PCR) - Final Imaging Radiology Impression Brain CT 04/29/24 19:18 IMPRESSION: No acute intracranial pathology of the brain. Right frontal scalp swelling/hematoma. Electronically Signed: Solomon Bach DO at 20:38 EST , Cervical Spine CT 04/29/24 19:18 IMPRESSION: No acute bony injury of the cervical spine. Electronically Signed: Solomon Bach DO at 20:45 EST , Chest/Abdomen/Pelvis CT 04/29/24 19:18 IMPRESSION: Mild effusions bilaterally. Left basilar infiltrate. Cirrhosis. Mild splenomegaly. Mild ascites and pelvic fluid. Slight wall thickening of the urinary bladder. Subcutaneous edema of the abdominal wall laterally. Fatty umbilical hernia. Electronically Signed: Solomon Bach DO at 21:04 EST , Femur X-Ray 04/29/24 20:35 IMPRESSION: Negative. Electronically Signed: Solomon Bach DO at 21:06 EST , Knee X-Ray 04/29/24 20:35 IMPRESSION: Mild effusion. Electronically Signed: Solomon Bach DO at 21:07 EST Reading Location ID and State: [address] [place] [address] Tel [phone], Service support , Assessment & Plan Assessment/Plan (1) Pneumonia: QUALIFIERS: Laterality: left Lung location: lower lobe of lung Pneumonia type: due to unspecified organism Qualified Code(s): J18.9 - Pneumonia, unspecified organism (2) Acidosis, lactic: (3) Leukocytosis: QUALIFIERS: Leukocytosis type: unspecified Qualified Code(s): D72.829 - Elevated white blood cell count, unspecified (4) Fall: QUALIFIERS: Encounter type: initial encounter Qualified Code(s): W19.XXXA - Unspecified fall, initial encounter (5) Generalized weakness: (6) Ambulatory dysfunction: (7) Type 2 diabetes mellitus with hyperglycemia: QUALIFIERS: Diabetes mellitus half-way insulin use: with supervisor fruit grading use Qualified Code(s): E11.65 - Type 2 diabetes mellitus with hyperglycemia; Z79.4 - therapeutic program worker (current) use of insulin (8) Obesity (BMI 30.0-34.9): (9) Tobacco abuse: PLAN: Plan 1. Suspected LLL Nosocomial Pneumonia with Leukocytosis of 21.5K and Lactic Acidosis of 4 mmoL/L present on admission concerning for possible Sepsis - Admit to PCU. Continue IV Zosyn and IV Vancomycin and await culture and sensitivity data. Check urinary antigens to Streptococcus pneumonia and Legionella. Serialize lactates to follow trend. Give Tylenol prn for [id number] (level 1-5/10) pain or fever. Give morphine IV prn for severe (level 6-10/10) pain. 2. Generalized Weakness with Ambulatory Dysfunction and Fall causing Right frontal scalp hematoma complicating #1 - PT/OT and Case Management to consult and treat on-rounds in AM for further recommendations regarding ECF with help appreciated in advance. 3. DM-2; uncontrolled with Hyperglycemia of 400 mg/dL present on admission in the setting of chronic diabetic neuropathy compounding #1 & #2 - ADA diet. FSBS q. AC/HS plus SSI. Check HgbA1c to objectively assess quality of diabetic control. 4. Recent admission here from April 23, 2024 to April 29, 2024 with patient just discharged earlier today after being treated for acute encephalopathy secondary to DKA complicated by KASSY and lactic acidosis with the patient requiring chest tube placement for iatrogenic pneumothorax on April 24, 2024 after Right subclavian CVC performed in ER on admission who re-presents to [facility] ER complaining of a fall shortly after arriving home causing her to return - Noted with patient regretting that she asked to be discharged after she was encouraged to stay. 5. Obesity; with BMI of 30.7 this admission in the setting of OA; with low back pain adding to the medical complexity of #1 - #4 - Weight loss will be recommended. Check TSH. This complicates her case and may hamper recovery. 6. Tobacco abuse - Tobacco Cessation will be strongly encouraged with Nicotine patch offered to control cravings. 7. History of HEBER - Resume nocturnal CPAP. 8. History of sarcoidosis - Noted. 9. GERD - Patient currently not on treatment. Start PPI if symptoms develop. 10. History of brain surgery - Noted. 11. History of cocaine abuse - Noted. Check UDS to ensure no [facility]. 12. Bipolar disorder - Continue quetiapine, aripiprazole, buspirone and doxepin as previous. 13. History of suicide attempt via intentional drug overdose - Noted. 14. History of perirectal abscess - Noted. 15. History of Right total adrenalectomy - Noted. 16. History of appendectomy - Noted. 17. Remote history of - Noted for the sake of completeness. 18. History of cellulitis with a large Left lower abdominal wall abscess admitted here from 11/11/2023 to 11/14/2023 that was complicated by medical noncompliance with patient then leaving this hospital AMA and then also not getting her prescriptions filled - Noted. 19. History of Cellulitis of the Right Foot ~12 weeks ago at another local hospital followed by a recent admission here from February 08, 2024 to February 09, 2024 for Cellulitis of the Right Foot with an accompanying DFU of the second toe of the Right Foot attributable to Medical Noncompliance with her insulin and suspected Failure of Outpatient Antibiotic Treatment - Noted. 20. DVT prophylaxis - Lovenox 40 mg sq daily plus SCD's. Total time: Approximately (but not less than) 75 minutes. Sepsis Attestation Sepsis Attestation: Sepsis Ruled Out Date exam was performed: 04/29/24 Time exam was performed: 23:40 Possible Source of Sepsis: Pulmonary Sepsis Organ Dysfunction Criteria Present: Lactic Acid > 2 mmol/L Fluid Resuscitation Fluid resuscitation indicated?: Yes Fluid Resuscitation ordered: 30 ml/kg fluid bolus ordered Amount of fluid ordered: 2 Sepsis Note Date exam was performed: 04/30/24 Time exam was performed: 03:45 Sepsis Attestation: Sepsis re-evaluation was performed Response to fluids: Fluid responsive hypotension Charges/Coding Visit Charges Inpatient E&M: 83603 Init Hosp L3
[2024-04-29] MEDS: Ceftriaxone 2 GM in 0.9% Normal Saline (50mL MB+) 50 ML IV (21:50)
[2024-04-29] MEDS: Vancomycin HCl 1,250 MG in 0.9% Normal Saline (250mL Bag) 250 ML 167 MG IV (22:15)
[2024-04-29 23:10] LABS: Lactic Acid 4.1 mmol/L (0.4-1.9)
--- NOTE | 2024-04-29 23:22 | PCM.RX.CS ---
Consult Antibiotic Management Pharmacy has been consulted to manage selected antibiotic: Vancomycin Type of Intervention Type of Consult: New start Suspected Infection Suspected Infection: Sepsis Labs Labs: Sodium 138 mmol/L (136-145) 04/29/24 18:38 Potassium 3.7 mmol/L (3.5-5.1) 04/29/24 18:38 Chloride 103 mmol/L (98-107) 04/29/24 18:38 Carbon Dioxide 25.0 mmol/L (21.0-32.0) 04/29/24 18:38 Anion Gap 10 (5-15) 04/29/24 18:38 BUN 17 mg/dL (7-18) 04/29/24 18:38 Creatinine 0.87 mg/dL (0.55-1.02) 04/29/24 18:38 Est GFR (MDRD) Af Amer 87 mL/min (>60) 04/29/24 18:38 Est GFR (MDRD) Non-Af 72 mL/min (>60) 04/29/24 18:38 BUN/Creatinine Ratio 19.5 RATIO (10-20) 04/29/24 18:38 Glucose 400 mg/dL (74-106) H 04/29/24 18:38 Microbiology Microbiology: Microbiology 04/29/24 19:45 Urine, Clean Catch Legionella Antigen - Final 04/29/24 19:45 Urine, Clean Catch Streptococcus pneumoniae Antigen (M - Final 04/29/24 19:27 Mucosa - Nose SARS-CoV-2, Influenza & RSV (PCR) - Final Dosing Weight Weight used for dosin.6 kg Estimated Creatinine Clearance Estimated Creatinine Clearance: 81 Goal Trough Goal Trough: 15-20 mcg/mL Pharmacy Plan for Drug Dosing Pharmacy Plan for Drug Dosing: Pharmacy Service will continue to monitor and adjust dosing as required. Follow-Up Labs Follow-Up Labs: Trough: Vancomycin Date/Time Labs Ordered Labs to be done on [date and time ordered]: 05/01/24 @1000
[2024-04-29] MEDS: Piperacil/Tazobactam 3.375 GM in 0.9% Normal Saline (50mL MB+) 50 ML IV (23:23)
[2024-04-29] MEDS: Doxepin Hcl 25 MG Capsule PO (23:27)
[2024-04-29] MEDS: QUEtiapine 100 MG Tablet 200 MG PO (23:27)
[2024-04-29] MEDS: hydrOXYzine PAM 25 MG Capsule 50 MG PO (23:27)
[2024-04-29] MEDS: Lactobacillis Acidophilus 1 CAP PO (23:27)
[2024-04-29] MEDS: busPIRone 5 MG Tablet 10 MG PO (23:27)
[2024-04-29] MEDS: Gabapentin 300 MG Capsule PO (23:35)
[2024-04-29] MEDS: Insulin Lispro 100 UNIT/ML INSULN.PEN SC (23:36)
[2024-04-29] MEDS: Insulin Glargine-YFGN 100 UNIT/ML Pen 35 UNIT SC (23:42)
[2024-04-29 23:50] LABS: Reflex Lactate? Y
[2024-04-30 00:10] LABS: Bedside Glucose 252 mg/dL (74-106)
[2024-04-30] MEDS: Acetaminophen 325 MG Tablet 650 MG PO (01:07)
[2024-04-30 01:26] LABS: BNP,B-Type NATRIURETIC PEPTIDE 99.7 pg/mL (0-100)
[2024-04-30] MEDS: Ipratropium/Albuterol Sulfate 3 ML AMPUL.NEB INHALATION (01:48)
[2024-04-30 01:49] VITALS: PULSE 95; RESP 18; O2SAT 95
[2024-04-30 02:25] LABS: Reflex Lactate? Y
[2024-04-30] MEDS: hydrOXYzine PAM 25 MG Capsule 50 MG PO ×3 (04:58→22:13)
[2024-04-30] MEDS: Gabapentin 300 MG Capsule PO ×3 (04:58→22:14)
[2024-04-30] MEDS: Piperacil/Tazobactam 3.375 GM in 0.9% Normal Saline (50mL MB+) 50 ML IV (04:58)
[2024-04-30] MEDS: cycloBENZAPRine HCl 5 MG TABLET PO (04:59)
[2024-04-30] MEDS: busPIRone 5 MG Tablet 10 MG PO ×3 (05:10→22:13)
[2024-04-30 05:40] VITALS: BP 131/64; PULSE 83; RESP 18; TEMP 36.4; O2SAT 98
--- NOTE | 2024-04-30 05:45 | RAD_ITS ---
EXAM: XR CHEST, 1 VIEW CLINICAL INDICATION: LLL infiltrate TECHNIQUE: Frontal view of the chest. COMPARISON: Previous chest radiographs of 04/27/2024. Chest CT of 04/29/2024. FINDINGS: LUNGS AND PLEURAL SPACES: The left basilar infiltrate seen on the prior CT has resolved, indicating that this infiltrate was secondary to atelectasis. No acute pulmonary infiltrates or pleural effusions are identified. No pneumothorax. HEART: Unremarkable. Cardiac silhouette not enlarged. Normal pulmonary vasculature. MEDIASTINUM: Central airways and mediastinal contour are unremarkable. BONES/JOINTS: Midthoracic degenerative spurring. SOFT TISSUES: Unremarkable. TUBES, LINES AND DEVICES: Central venous catheter has been removed. UPPER ABDOMEN: Stable mild elevation of the right hemidiaphragm. RAD/Chest 1 View (Portable) IMPRESSION: 1. No acute cardiopulmonary disease process identified. 2. The left lower lobe infiltrate noted on the preceding chest CT has resolved. Electronically Signed: Tyshawn Matias MD at 6:41 EST ,
[2024-04-30 05:53] LABS: BNP,B-Type NATRIURETIC PEPTIDE 110.2 pg/mL (0-100)
[2024-04-30] MEDS: Insulin Glargine-YFGN 100 UNIT/ML Pen 35 UNIT SC ×2 (08:31→17:10)
[2024-04-30] MEDS: Insulin Lispro 100 UNIT/ML INSULN.PEN SC ×4 (08:31→22:14)
[2024-04-30] MEDS: Ascorbic Acid 500 MG Tablet 1000 MG PO ×2 (08:33→17:11)
[2024-04-30 08:56] LABS: Bedside Glucose 230 mg/dL (74-106)
--- NOTE | 2024-04-30 09:06 | PN.HOSP_ITS ---
Subjective Subjective Doing well, no issues overnight. No shortness of breath not requiring any oxygen Objective Data Objective Data Vital Signs: Vital Signs Temp Pulse Resp BP Pulse Ox O2 Del Method 97.6 F L 83 18 131/64 H 98 Room Air 04/30/24 05:40 04/30/24 05:40 04/30/24 05:40 04/30/24 05:40 04/30/24 05:40 04/30/24 05:40 Oxygen Delivery Method Room Air Weight: 184 lb 4.903 oz Body Mass Index (BMI) 30.7 Intake & Output: Intake and Output for Last 24 Hours 04/29/24 04/30/24 05/01/24 03:59 03:59 03:59 Intake Total 3239.95 / 3239.95 100 / 100 Balance 3239.95 / 3239.95 100 / 100 Lab / Micro Data 04/29/24 18:38 04/29/24 18:38 Labs: Laboratory Results - last 24 hr 04/29/24 18:38: WBC 21.5 H, RBC 4.64, Hgb 12.8, Hct 38.6, MCV 83.2, MCH 27.6, MCHC 33.2, RDW Std Deviation 42.2, RDW Coeff of Cele 14.1, Plt Count 292, MPV 10.4, Neut % (Auto) Not Reportable, Absolute Neuts (auto) 14.2 H, Absolute Lymphs (auto) 2.58, Total Counted 100, Neutrophils % (Manual) 62, Band Neutrophils % 4, Lymphocytes % (Manual) 12 L, Monocytes % (Manual) 8, Eosinophils % (Manual) 2, Basophils % (Manual) 1, Metamyelocytes % 5 H, M yelocytes % 6 H, Diff Path Review May foll, Atypical Lymphocytes RARE, Toxic Granulation RARE, Platelet Estimate ADEQUATE, RBC Morphology NORM C+C, Anisocytosis RARE, Microcytosis RARE, Ovalocytes RARE, PT 12.8, INR 0.9, APTT 27.1, Sodium 138, Potassium 3.7, Chloride 103, Carbon Dioxide 25.0, Anion Gap 10, BUN 17, Creatinine 0.87, Estim Creat Clear Calc 81.18, Est GFR (MDRD) Af Amer 87, Est GFR (MDRD) Non-Af 72, BUN/Creatinine Ratio 19.5, Glucose 400 H, C alcium 8.4 L, Total Bilirubin 0.30, AST 30, ALT 30, Alkaline Phosphatase 311 H, Troponin I High Sens 16, B-Natriuretic Peptide 99.7, Total Protein 6.5, Albumin 2.0 L, Globulin 4.5 H, Albumin/Globulin Ratio 0.4 L, TSH 1.540 04/29/24 19:45: Lactic Acid 4.0 H*, Urine Color Yellow, Urine Clarity Clear, Urine pH 6.5, Ur Specific [place] 1.010, Urine Protein 15 H, Urine Glucose (UA) 1000 H, Urine Ketones Negative, Urine Occult Blood 25 H, Urine Nitrite Negative, Urine Bilirubin Negative, Urine Urobilinogen Normal, Ur Leukocyte Esterase Negative, Urine RBC 0-5 SEEN, Urine WBC 0 SEEN, Ur Squamous Epith Cells 5-10 SEEN, Amorphous Sediment 1+ URATE, Urine Bacteria 0 SEEN, Urine Mucus 0 SEEN 04/29/24 20:16: POC Glucose 377 H 04/29/24 22:20: Lactic Acid 4.1 H*, Acetone Level NEGATIVE 04/29/24 23:41: POC Glucose 252 H 04/30/24 05:21: B-Natriuretic Peptide 110.2 H 04/30/24 08:30: POC Glucose 230 H Micro: Microbiology 04/29/24 19:45 Urine, Clean Catch Legionella Antigen - Final 04/29/24 19:45 Urine, Clean Catch Streptococcus pneumoniae Antigen (M - Final 04/29/24 19:27 Mucosa - Nose SARS-CoV-2, Influenza & RSV (PCR) - Final Radiography Diagnostic Testing: Radiology Impression Brain CT 04/29/24 19:18 IMPRESSION: No acute intracranial pathology of the brain. Right frontal scalp swelling/hematoma. Electronically Signed: Solomon Bach DO at 20:38 EST , Cervical Spine CT 04/29/24 19:18 IMPRESSION: No acute bony injury of the cervical spine. Electronically Signed: Solomon Bach DO at 20:45 EST , Chest/Abdomen/Pelvis CT 04/29/24 19:18 IMPRESSION: Mild effusions bilaterally. Left basilar infiltrate. Cirrhosis. Mild splenomegaly. Mild ascites and pelvic fluid. Slight wall thickening of the urinary bladder. Subcutaneous edema of the abdominal wall laterally. Fatty umbilical hernia. Electronically Signed: Solomon Bach DO at 21:04 EST , Femur X-Ray 04/29/24 20:35 IMPRESSION: Negative. Electronically Signed: Solomon Bach DO at 21:06 EST , Knee X-Ray 04/29/24 20:35 IMPRESSION: Mild effusion. Electronically Signed: Solomon Bach DO at 21:07 EST , Chest X-Ray 04/30/24 05:45 IMPRESSION: 1. No acute cardiopulmonary disease process identified. 2. The left lower lobe infiltrate noted on the preceding chest CT has resolved. Electronically Signed: Tyshawn Matias MD at 6:41 EST , Physical Exam Narrative General: Alert, Oriented x3, Cooperative, No apparent distress HEENT: Atraumatic, PERRLA, EOMI, Normocephalic, right forehead contusion Oral: Moist Mucosa Neck: Supple, No JVD Lungs: Diminished, Normal air movement, No rhonchi, No wheeze, No rales Cardiovascular: Regular rate, Regular Rhythm, Normal S1, Normal S2, No murmurs Abdomen: Soft, Non Tender, Non-Distended, No Hepato-splenomegaly Extremities: No edema, Capillary Refill Less than 3 Seconds Skin: No rashes, No breakdown Musculoskeletal: No Tenderness to Palpation of Joints or Extremities Neurological: No focal neurological deficits, Motor Exam 5/5 strength throughout, Sensory exam intact to light touch and pain Psych/Mental Status: Normal Affect, Appropriate Const alert, oriented x3 and no apparent distress Constitutional Narrative: Obese with chronically ill appearance. General Appearance: cooperative HEENT normocephalic, head/scalp atraumatic, hearing grossly normal bilaterally and moist oral mucous membranes Eyes PERRL and EOMs intact bilaterally Neck no lymphadenopathy and supple Resp Resp Narrative: Diminished breath sounds over Left lower lobe. Cardio regular rate and regular rhythm GI normal to inspection, nondistended, normoactive bowel sounds, soft to palpation, non-tender and non-distended GI Narrative: Obese. Extremity no clubbing, cyanosis or edema Skin Skin Narrative: Patient has Right frontal scalp hematoma but she has no rash, abscess or jaundice. Neuro oriented x3, CN's II-XII intact bilaterally, moves all extremities and no focal motor deficits Neuro Narrative: Patient has +4/5 strength noted in the bilateral upper and lower extremities with good pulses and no signs of vascular compromise. Sensorium / Orientation: awake, alert, oriented to person, oriented to place and oriented to time Speech: speech normal Psych affect normal Assessment & Plan Assessment/Plan (1) Fall: QUALIFIERS: Encounter type: initial encounter Qualified Code(s): W19.XXXA - Unspecified fall, initial encounter (2) Generalized weakness: PLAN: Plan 1. Mechanical fall secondary to debility, no pneumonia or sepsis evident ? Chest x-ray resolved within 24 hours unlikely to be pneumonia ? Continue with p.o. cefdinir to treat her previous UTI bacteremia from E. coli ? PT/OT with case management consult for possible placement ? Spurious leukocytosis likely due to a mechanical fall as is the lactic acidosis 2. Recent left-sided pyelonephritis with E. coli bacteremia ? She has recovered for this but is continuing antibiotic treatment with cefdinir 300 mg p.o. twice daily which we will continue here in the hospital 3. DM1 ? Renal functions at baseline ? Resume her home insulin ? Accu-Cheks ACHS 4. GERD ? Stable ? Continue with PPI 5. Anxiety/depression ? Stable ? Continue with her home medications 6. COPD ? Continue with her home inhalers ? Not in exacerbation ? This is a little bit complicated by her previous admission with a right-sided pneumothorax DVT: Lovenox Charges/Coding Visit Charges Inpatient E&M: 53852 Subs Hosp L2
[2024-04-30 09:25] VITALS: BP 144/76; PULSE 95; RESP 16; TEMP 36.5; O2SAT 98
[2024-04-30] MEDS: Nystatin Powder 15gm Bottle 1 APPLIC TOPICAL ×3 (09:27→22:14)
[2024-04-30] MEDS: Zinc Sulfate 50 mg zinc (220 mg) ORAL capsule PO (09:28)
[2024-04-30] MEDS: Lactobacillis Acidophilus 1 CAP PO ×4 (09:28→22:13)
[2024-04-30] MEDS: Enoxaparin 40 MG/0.4 ML Syringe SC (09:28)
[2024-04-30] MEDS: QUEtiapine 100 MG Tablet PO (09:28)
[2024-04-30] MEDS: ARIPiprazole 5 MG Tablet PO (09:28)
[2024-04-30] MEDS: Cholecalciferol (Vit D3) 125 MCG CAPSULE (5,000 UNITS) PO (09:29)
[2024-04-30] MEDS: oxyCODONE 5 MG Tablet PO ×2 (09:36→21:23)
--- NOTE | 2024-04-30 10:25 | CASEMGMT ---
Discharge Planning A list of?SNF providers including quality and resource use data and consistent with the patient's preferred geographic region, medical needs, and insurance network was created in [facility] Guide.? This list was provided to the SW. Yenny Bustillo Discharge Planning Asst.
[2024-04-30] MEDS: Cefdinir 300 MG Capsule PO ×2 (10:50→22:14)
--- NOTE | 2024-04-30 12:15 | CASEMGMT ---
[facility] Readmission/DC Planning Assessment: Index admission: 04/23 thru 04/29/2024 Dx: Lt pyelonephritis w/ecoli bacteremia, Iatrogenic rt pneumothorax s/p chest tube; DKA; KASSY. Discharge disposition: [facility] with po antibiotic Readmission: 04/29/2024 Dx: Pneumonia Pt with DM, depression, bipolar disorder, GERD, cirrhosis, COPD, HTN, neuropathy, and sarcoidosis was admitted on the above dates and times with the corresponding noted dx's. Pt was discharged to the [facility] on the same date as her readmission. Pt reported to have fallen upon arrival onto the concrete hitting her head. Per chart review, pt reported to not be able to ambulate following this fall and was unable to care for her self. This RN CM met with pt face to face at pt's bedside, introduced self and role at [facility]. Pt agreeable to answering questions. Pt states she did waste picker her prescription at discharge. Pt states she does need diabetic supplies as these remain with her ex- and she is unable to safely get them back. Pt states she plans to establish with a PCP in the area but had not had the opportunity to so yet. Discussed transitions of care needs with patient. Pt states she needs to go to a snf to gain strength as she states she is unable to care for herself at this time. Pt states she can only ambulate a few feet and she needs to be able to walk farther to navigate her apartment. Reviewed process with patient including providing a list of facilities including resource and quality data, obtaining her preference, sending referrals, getting acceptance and insurance approval. Explained that pt will also need to work with therapy today as that will help determine acceptance and authorization. Pt expressed understanding. SW notified of pt's request for SNF and readmission from [facility]. DC Plan: SNF pending therapy evals and pt preference Teo Lee RN AC
[2024-04-30 12:16] LABS: Bedside Glucose 212 mg/dL (74-106)
[2024-04-30 13:48] LABS: Pathologist Review Reviewed
[2024-04-30 15:26] VITALS: BP 122/56; PULSE 108; RESP 16; TEMP 36.9; O2SAT 98
--- NOTE | 2024-04-30 16:03 | CASEMGMT ---
Addendum entered by Yenny Bustillo 04/30/24 16:28: [facility] has accepted pending insurance verification. Note sent to submit for precert once verification is complete. Yenny Bustillo DC Planning Asst. Original Note: Referral sent to [facility]. Yenny Bustillo DC Planning Asst.
--- NOTE | 2024-04-30 17:02 | CASEMGMT ---
Social Work- SW met with pt to conduct SDOH. SW introduced self and role; pt previously known to SW. Pt reports that she is wanting SNF placement at this time d/t failed return to community. Pt reports that [facility] will not hold a bed while at SNF; pt will need housing connection at discharge from SNF. Pt previously provided information; declines printed resources at this time. A list of SNF providers including quality and resource use data and consistent with the patient?s preferred geographic region, medical needs, and insurance network were provided from the [facility] Guide. Pt selected [facility] and [facility] as FOC. DCA notified of referral request. SW remains available to follow. EDWARD Fernández
[2024-04-30 17:31] LABS: Bedside Glucose 226 mg/dL (74-106)
[2024-04-30 20:41] VITALS: BP 126/52; PULSE 105; RESP 18; TEMP 37.2; O2SAT 96
--- NOTE | 2024-04-30 21:05 | NURSING ---
5mg Oxyir PRN given. 4mg Zofran prn given. Verified with Maria Isabel Rivers Nursing Special Officer. MAR will not complete Biometric verification.
[2024-04-30] MEDS: Ondansetron 4 MG/2 ML Vial IV (21:24)
[2024-04-30] MEDS: QUEtiapine 100 MG Tablet 200 MG PO (22:13)
[2024-04-30] MEDS: Doxepin Hcl 25 MG Capsule PO (22:14)
[2024-04-30] MEDS: 0.9% Saline Lock 10 ML Syringe IV (22:19)
[2024-04-30 22:26] LABS: Bedside Glucose 151 mg/dL (74-106)
[2024-04-30 23:11] LABS: Amphetamine Urine VISTA NEGATIVE (<1000 ng/mL); Barbiturate Urine VISTA NEGATIVE (< 200 ng/mL); Benzodiazepine Urine VISTA NEGATIVE (< 200 ng/mL); Cocaine Urine VISTA NEGATIVE (< 300 ng/mL); Ecstacy Urine VISTA NEGATIVE (< 500 ng/mL); Methadone Urine VISTA NEGATIVE (< 300 ng/mL); PCP Urine VISTA NEGATIVE (< 25 ng/mL); THC Urine VISTA NEGATIVE (< 50 ng/mL); Vista UDS pH Range 6
[2024-05-01 03:00] VITALS: BP 112/60; PULSE 93; RESP 16; TEMP 37.2; O2SAT 94
[2024-05-01] MEDS: busPIRone 5 MG Tablet 10 MG PO (06:19)
[2024-05-01] MEDS: Nystatin Powder 15gm Bottle 1 APPLIC TOPICAL (06:19)
[2024-05-01] MEDS: hydrOXYzine PAM 25 MG Capsule 50 MG PO (06:20)
[2024-05-01] MEDS: Gabapentin 300 MG Capsule PO (06:20)
[2024-05-01 06:40] VITALS: BP 121/60
[2024-05-01] MEDS: oxyCODONE 5 MG Tablet PO ×2 (06:50→11:45)
[2024-05-01 07:05] LABS: Bedside Glucose 109 mg/dL (74-106)
[2024-05-01] MEDS: Ascorbic Acid 500 MG Tablet 1000 MG PO (07:50)
[2024-05-01] MEDS: Insulin Glargine-YFGN 100 UNIT/ML Pen 35 UNIT SC (08:25)
[2024-05-01 08:54] LABS: Hematocrit 29.1 % (37-47); Hemoglobin 9.5 g/dL (12.0-15.0); Mean Corp Hgb Conc 32.6 g/dL (32-36); Mean Corpuscular Hgb 27.9 pg (27.0-32.0); Mean Corpuscular Volume 85.6 fL (81-99); Mean Platelet Vol. 9.3 fl (6.2-12.0); POSITIVE COUNT YES; POSITIVE MORPHOLOGY YES; Platelet Count 225 K/mm3 (150-450); RBC Distribution Width CV 14.2 % (11.6-14.6); RBC Distribution Width SD 43.4 fl (35.1-43.9); White Blood Count 17.2 K/mm3 (4.4-11.0)
[2024-05-01 08:55] LABS: Differential Indicated MANUAL DIFF
--- NOTE | 2024-05-01 08:55 | CASEMGMT ---
[facility] has obtained auth to admit. Yenny Bustillo DC Planning Asst.
[2024-05-01 09:00] LABS: Bedside Glucose 90 mg/dL (74-106)
--- NOTE | 2024-05-01 09:07 | CASEMGMT ---
SW met with patient. Introduced self and role at [facility]. SW let patient know [facility] accepted her and her insurance approved her already. Patient thanked EDGAR for letting her know. Plan: d/c to [facility] under skilled level of care. Sita HAMM
[2024-05-01 09:15] LABS: Anion Gap 3 (5-15); BUN 9 mg/dL (7-18); BUN/Creat Ratio 18.1 RATIO (10-20); Calcium,Total 7.9 mg/dL (8.5-10.1); Chloride 109 mmol/L (98-107); EST Glomerular Filtration Rate 138 mL/min (>60); Est Glom Filt Rate - Afr Amer 167 mL/min (>60); Estimated Creatinine Clearance 138.94 ml/min; Glucose 110 mg/dL (74-106); Potassium 3.8 mmol/L (3.5-5.1); Sodium Level 140 mmol/L (136-145)
[2024-05-01 09:36] LABS: Eosinophil 2 % (0-5); Lymphocyte 13 % (19-41); Metamyelocyte 2 % (0-1); Monocyte 3 % (0-10); Neutrophil-Band 2 % (0-5); Neutrophil-Segmented 78 % (47-70); Platelet Estimate ADEQUATE (ADEQ); Red Cell Morphology NORM C+C NORMAL (NORM C&C); Total Cells Counted 100 (MANUAL DIFF)
[2024-05-01 09:37] LABS: Absolute Lymphocyte Count 2.23 X10^3/uL (0.83-4.51); Absolute Neutrophil Count 13.8 X10^3/uL (2.0-7.7)
[2024-05-01 10:00] VITALS: BP 126/63; PULSE 108; RESP 16; TEMP 37.1; O2SAT 94
[2024-05-01] MEDS: ARIPiprazole 5 MG Tablet PO (10:04)
[2024-05-01] MEDS: Enoxaparin 40 MG/0.4 ML Syringe SC (10:04)
[2024-05-01] MEDS: Lactobacillis Acidophilus 1 CAP PO (10:04)
[2024-05-01] MEDS: QUEtiapine 100 MG Tablet PO (10:05)
[2024-05-01] MEDS: Cholecalciferol (Vit D3) 125 MCG CAPSULE (5,000 UNITS) PO (10:05)
[2024-05-01] MEDS: Cefdinir 300 MG Capsule PO (10:05)
[2024-05-01] MEDS: Zinc Sulfate 50 mg zinc (220 mg) ORAL capsule PO (10:05)
[2024-05-01] MEDS: Senna/Docusate Sodium 1 Tablet PO (10:07)
--- NOTE | 2024-05-01 10:50 | PCM.TXEXTCAR ---
Diet Diet Order/Speech Therapy: 04/30/24 14:32 Diet: Cardiac: Calorie-Controlled How many daily calories?: 1800 calorie Routine Orders/Code Status Routine Lab Work: CBC and BMP Code Status: Full Code DC O2, CPAP, BIPAP needs Home O2 Discharge instructions: No Wound(s) rt knee: Wound Type: Abrasion Therapies Physical Therapy: Eval and Treat Occupational Therapy: Eval and Treat Problem/Diagnosis (1) Fall: Status: Acute Code(s): W19.XXXA - Unspecified fall, initial encounter (2) Generalized weakness: Status: Acute Code(s): R53.1 - Weakness Plan 1. Mechanical fall secondary to debility, no pneumonia or sepsis evident ? Chest x-ray resolved within 24 hours unlikely to be pneumonia ? Continue with p.o. cefdinir to treat her previous UTI bacteremia from E. coli ? PT/OT with case management consult for possible placement ? Spurious leukocytosis likely due to a mechanical fall as is the lactic acidosis 2. Recent left-sided pyelonephritis with E. coli bacteremia ? She has recovered for this but is continuing antibiotic treatment with cefdinir 300 mg p.o. twice daily which we will continue here in the hospital 3. DM1 ? Renal functions at baseline ? Resume her home insulin ? Accu-Cheks ACHS 4. GERD ? Stable ? Continue with PPI 5. Anxiety/depression ? Stable ? Continue with her home medications 6. COPD ? Continue with her home inhalers ? Not in exacerbation ? This is a little bit complicated by her previous admission with a right-sided pneumothorax DVT: Lovenox Allergies/Procedures Done in Hospital Allergies aspirin Adverse Reaction (Verified 04/29/24 18:43) Other hydromorphone (From Dilaudid) Adverse Reaction (Verified 04/29/24 18:43) Other pseudoephedrine HCl (From Sudafed) Adverse Reaction (Verified 04/29/24 18:43) Other Procedures: None Type of Care/Length of Stay Estimated LOS: Convalescent Care Less Than 30 days Type of Care Needed: Skilled Rehab Potential: Good Prognosis: Good Additional Orders/Day of Discharge Day of Discharge: 05/01/24 Dietary and Speech Recommendations Dietitian Recommendations/Changes: Adjust to cardiac; 1800 calorie controlled diet. Will monitor weight trends. Reviewed and approved by Daya Mullins RDN, IHSAN. Discharge Plan Admission Admit Date/Time: 04/29/24 21:46 Attending Provider: Farhad Ma Primary Care Provider: Fely Bose Consulting Providers: Vicente Mao Discharge Orders/Prescriptions Prescriptions: New oxycodone 5 mg Tablet 5 mg PO Q4H PRN PRN (Reason: Pain Score 4-10) 3 Days Qty: 10 0RF Continued (DME) pen needle, diabetic 31 gauge x 1/4 needle See Rx Instructions .Route Qty: 100 0RF Rx Instructions: As directed cyclobenzaprine 5 mg PO TID PRN PRN (Reason: MUSCLE SPASMS) doxepin 25 mg capsule 25 mg PO QHS 30 Days Qty: 30 0RF quetiapine 200 mg tablet 200 mg PO QHS 30 Days Qty: 30 0RF quetiapine 100 mg tablet 100 mg PO DAILY 30 Days Qty: 30 0RF Rx Instructions: takes in morning buspirone 10 MG tablet 10 mg PO TID 30 Days Qty: 90 0RF hydroxyzine pamoate [Vistaril] 25 mg capsule 50 mg PO TID 30 Days Qty: 180 0RF insulin lispro 100 unit/mL insulin pen See Protocol subcut ACHS 30 Days Qty: 15 0RF Protocol: 5. Sliding Scale Insulin High Dosing Condition: 150-209 mg/dl = 3 units Condition: 210-259 mg/dl = 6 units Condition: 260-324 mg/dl = 9 units Condition: 325-374 mg/dl = 12 units Condition: 375-409 mg/dl = 14 units Condition: 410-449 mg/dl = 16 units Condition: Greater than 449 call physician Protocol Text: Suggested for: - Patients on Total Daily Insulin Dose of 81-120 units - Very insulin resistant patients HIGH DOSING ALGORITHM Rx Instructions: subcutaneously; aripiprazole 5 mg tablet 5 mg PO DAILY 30 Days Qty: 30 0RF insulin glargine [Lantus Solostar U-100 Insulin] 100 unit/mL (3 mL) insulin pen 35 unit subcut BIDCM 30 Days Qty: 15 0RF Linzess 72 mcg capsule 72 mcg PO DAILY 30 Days Qty: 30 0RF gabapentin 300 mg capsule 300 mg PO TID cefdinir 300 mg capsule 300 mg PO BID Qty: 14 0RF quetiapine [Seroquel] 100 mg tablet 100 mg PO DAILY Referrals / Follow Up: Fely Bose MD [Primary Care Provider] - Disposition Disposition (needs filled in before D/C Order can be placed): Intermediate Facility (1) Fall Qualifiers: Encounter type: initial encounter Qualified Code(s): W19.XXXA - Unspecified fall, initial encounter
[2024-05-01 10:55] VITALS: BP 126/63; PULSE 108; RESP 16; TEMP 37.1; O2SAT 94
--- NOTE | 2024-05-01 11:29 | CASEMGMT ---
Patient is ready for discharge to [facility]. EDGAR completed a 7000 in [facility] system. Physicians will transport patient via wheelchair van. Plan: d/c to [facility] under skilled level of care on a convalescent stay. Physicians will transport patient via wheelchair van. Sita HAMM
--- NOTE | 2024-05-01 12:18 | CASEMGMT ---
Discharge orders, signed med list, and transport time sent to [facility] via [facility]. Physicians will transport pt by 1p. Nursing and updated. Nursing to update pt. Yenny Bustillo DC Planning Asst.
[2024-05-01 12:21] LABS: Bedside Glucose 118 mg/dL (74-106)
--- NOTE | 2024-05-01 12:30 | NURSING ---
Report given to nurse Arnold from [facility] at 12:25.
--- NOTE | 2024-05-01 13:51 | PCM.DC.SUM ---
Providers Date of Admission: 04/29/24 Primary Care Physician: Dr. Fely Bose MD Reason For Visit: LLL INFILTRATE WITH LEUKOYTOSIS & LACTIC Diagnosis Discharge Diagnosis (1) Fall: Status: Acute Code(s): W19.XXXA - Unspecified fall, initial encounter Qualifiers: Encounter type: initial encounter Qualified Code(s): W19.XXXA - Unspecified fall, initial encounter (2) Generalized weakness: Status: Acute Code(s): R53.1 - Weakness Medications at Discharge Home Medications pen needle, diabetic 31 gauge x 1/4 #100 ea 02/08/24 cyclobenzaprine 5 mg PO TID PRN PRN MUSCLE SPASMS 02/20/24 aripiprazole 5 mg tablet 5 mg PO DAILY antidepressant 30 days #30 tabs 02/29/24 buspirone 10 mg tablet 10 mg PO TID depression 30 days #90 tabs 02/29/24 doxepin 25 mg capsule 25 mg PO QHS bipolar 30 days #30 caps 02/29/24 hydroxyzine pamoate 25 mg capsule (Vistaril) 50 mg (2 x 25 mg) PO TID anxiety 30 days #180 caps 02/29/24 insulin glargine 100 unit/mL (3 mL) subcutaneous pen (Lantus Solostar U-100 Insulin) 35 unit (0.35 mL) subcut BIDCM blood sugar 30 days #15 mL 02/29/24 insulin lispro 100 unit/mL subcutaneous pen See Protocol subcut ACHS blood sugar 30 days #15 mL 02/29/24 linaclotide 72 mcg capsule (Linzess) 72 mcg PO DAILY bowels 30 days #30 caps 02/29/24 quetiapine 100 mg tablet 100 mg PO DAILY bipolar 30 days #30 tabs 02/29/24 quetiapine 200 mg tablet 200 mg PO QHS bipolar 30 days #30 tabs 02/29/24 gabapentin 300 mg capsule 300 mg PO TID 04/23/24 cefdinir 300 mg capsule 300 mg PO BID #14 caps 04/29/24 quetiapine 100 mg tablet (Seroquel) 100 mg PO DAILY 04/29/24 oxycodone 5 mg tablet 5 mg PO Q4H PRN PRN Pain Score 4-10 3 days #10 tabs 05/01/24 Hospital Course Operations None Procedures None Summary of Care Provided Minutes Spent on Discharge: 37 Hospital Course: Per HPI: ANA CRISTINA THOMAS, is a 53 F with a past medical history of tobacco abuse, history of HEBER, DM-2; uncontrolled with hyperglycemia, diabetic neuropathy, obesity; with BMI of 30.7 this admission, history of sarcoidosis, GERD, history of brain surgery, history of cocaine abuse, bipolar disorder, history of suicide attempt via intentional drug overdose, history of perirectal abscess, history of Right total adrenalectomy, history of appendectomy, remote history of , OA; with low back pain, history of cellulitis with a large Left lower abdominal wall abscess admitted here from 11/11/2023 to 11/14/2023 that was complicated by medical noncompliance with patient then leaving this hospital AMA and then also not getting her prescriptions filled and recently diagnosed Cellulitis of the Right Foot ~12 weeks ago at another local hospital followed by an admission here from February 08, 2024 to February 09, 2024 for Cellulitis of the Right Foot with an accompanying DFU of the second toe of the Right Foot attributable to Medical Noncompliance with her insulin and suspected Failure of Outpatient Antibiotic Treatment followed by another very recent admission here from April 23, 2024 to April 29, 2024 with patient just discharged earlier today after being treated for acute encephalopathy secondary to DKA complicated by KASSY and lactic acidosis with the patient requiring chest tube placement for iatrogenic pneumothorax on April 24, 2024 after Right subclavian CVC performed in ER on admission who re-presents to [facility] ER complaining of a fall shortly after arriving home causing her to return. Ms. Thomas reports she was discharged home from this facility around 14:00 hrs. earlier today after she had initially felt like she was getting much better. She then went home and on her way in the house she tripped over a rug causing her to fall forward and land on her face. She states that she did not lose consciousness and she is currently not on blood thinning medications. She noted that she was extremely weak and was unable to get off the ground by herself. She states it took several people to help her stand up and get to the couch and now she is too weak to ambulate. She states she can no longer care for herself in addition to noting that her blood sugar is also been elevated to 377 mg/dL. She went on to state that she was encouraged to stay in the hospital but she regrets not following the recommendations for her to stay. In the ER she was noted to have Leukocytosis of 21.5K and Lactic Acidosis of 4 mmoL/L present on admission with CT evidence of mild effusions bilaterally and Left basilar infiltrate with evidence of cirrhosis, mild splenomegaly and mild ascites and pelvic fluid in addition to slight wall thickening of the urinary bladder and subcutaneous edema of the abdominal wall laterally with an incidentally noted fatty umbilical hernia. She was then diagnosed with LLL infiltrate consistent with possible Nosocomial Pneumonia with leukocytosis and lactic acidosis concerning for possible early Sepsis complicated by fall at home with CT of the head revealing Right frontal scalp swelling/hematoma with no acute intracranial pathology of the brain all culminating to cause Generalized Weakness with Ambulatory Dysfunction and she was then admitted to the general medical floor for ongoing care for stay that is expected to extend beyond 2 midnights. Hospital Course: 1. Mechanical fall secondary to debility?53-year-old female who was just discharged from the hospital for bacteremia as well as a right pneumothorax presented back to the hospital after mechanical fall. During her previous admission we did attempt to get her into a group home but she did not feel she needed 1 so she elected to be discharged home. At that time she had a mechanical fall and hit her head leading to a right forehead contusion. On return to the ER she did have a slight increase in her leukocytosis likely related to the trauma. There is also concern for possible left lower lobe pneumonia seen on CT scan however this was not evident on chest x-ray the next day so her broad-spectrum antibiotics were discontinued and she was continued on cefdinir for her previous E. coli bacteremia from UTI. She did have improvement on her oral antibiotics and her leukocytosis improved on the day of discharge. I do recommend another 10 days of cefdinir 300 mg p.o. twice daily. She is not requiring any oxygen and has been afebrile during her hospitalization during the stay. I discussed with her the plan to discharge today and she expressed understanding there is benefit to going to the group home and she would like to go today. 2. Recent left-sided pyelonephritis with E. coli bacteremia, type 1 diabetes, GERD, anxiety, depression, COPD with a recent right pneumothorax that has resolved her chronic medical conditions which complicate her care. Her home medications were continued where appropriate Physical Exam Narrative General: Alert, Oriented x3, Cooperative, No apparent distress HEENT: Atraumatic, PERRLA, EOMI, Normocephalic, right forehead contusion Oral: Moist Mucosa Neck: Supple, No JVD Lungs: Diminished, Normal air movement, No rhonchi, No wheeze, No rales Cardiovascular: Regular rate, Regular Rhythm, Normal S1, Normal S2, No murmurs Abdomen: Soft, Non Tender, Non-Distended, No Hepato-splenomegaly Extremities: No edema, Capillary Refill Less than 3 Seconds Skin: No rashes, No breakdown Musculoskeletal: No Tenderness to Palpation of Joints or Extremities Neurological: No focal neurological deficits, Motor Exam 5/5 strength throughout, Sensory exam intact to light touch and pain Psych/Mental Status: Normal Affect, Appropriate Medical Records Data Homelessness:: Unspecified Weight / BMI Weight Weight: 184 lb 4.903 oz Body Mass Index (BMI) 30.7 ABG / Lab / Microbiology Data 05/01/24 08:45 05/01/24 08:45 Laboratory: Laboratory Results - last 24 hr 04/29/24 19:45: Urine Opiates Screen NEGATIVE, Urine Methadone Screen NEGATIVE, Ur Barbiturates Screen NEGATIVE, Ur Phencyclidine Scrn NEGATIVE, Ur Amphetamines Screen NEGATIVE, MDMA (Ecstasy) Screen NEGATIVE, U Benzodiazepines Scrn NEGATIVE, Urine Cocaine Screen NEGATIVE, U Cannabinoids Screen NEGATIVE, Ur Drug Screen Comment 04/30/24 17:09: POC Glucose 226 H 04/30/24 22:06: POC Glucose 151 H 05/01/24 06:45: POC Glucose 109 H 05/01/24 07:49: POC Glucose 90 05/01/24 08:45: WBC 17.2 H, RBC 3.40 L, Hgb 9.5 L, Hct 29.1 L, MCV 85.6, MCH 27.9, MCHC 32.6, RDW Std Deviation 43.4, RDW Coeff of Cele 14.2, Plt Count 225, MPV 9.3, Neut % (Auto) Not Reportable, Absolute Neuts (auto) 13.8 H, Absolute Lymphs (auto) 2.23, Total Counted 100, Neutrophils % (Manual) 78 H, Band Neutrophils % 2, Lymphocytes % (Manual) 13 L, Monocytes % (Manual) 3, Eosinophils % (Manual) 2, Metamyelocytes % 2 H, Diff Path Review May foll, Platelet Estimate ADEQUATE, RBC Morphology NORM C+C, Sodium 140, Potassium 3.8, Chloride 109 H, Carbon Dioxide 27.0, Anion Gap 3 L, BUN 9, Creatinine 0.50 L, Estim Creat Clear Calc 138.94, Est GFR (MDRD) Af Amer 167, Est GFR (MDRD) Non-Af 138, BUN/Creatinine Ratio 18.1, Glucose 110 H, Calcium 7.9 L 05/01/24 11:39: POC Glucose 118 H Microbiology: Microbiology 04/29/24 19:45 Urine, Clean Catch Urine Culture - Preliminary Culture exhibits no growth. 04/29/24 19:45 Urine, Clean Catch Legionella Antigen - Final 04/29/24 19:45 Urine, Clean Catch Streptococcus pneumoniae Antigen (M - Final 04/29/24 19:27 Mucosa - Nose SARS-CoV-2, Influenza & RSV (PCR) - Final D/C Instructions DC O2, CPAP, BIPAP Needs Home O2 Discharge instructions: No Meaningful Use Info Meaningful Use Meaningful Use Diagnoses (Choose all that apply): None applicable Ischemic Stroke Statin Dosing Therapy Reference: STATIN DOSE THERAPY REFERENCE: * Patients > 75 years receive moderate or high dose statin therapy. * Patients 75 years or YOUNGER should receive HIGH intensity statin dose unless contraindicated. You will be required to document reason for non-treatment if statin daily dose does not meet guidelines. HIGH DOSE STATIN THERAPY DAILY Atorvastatin > than or = to 40 mg Rosuvastatin > than or = to 20 mg Amlodipine + Atorvastatin > than or = to 2.5/40 mg Ezetimibe + Simvastatin 10/80 mg Simvastatin 80mg Discharge Plan Admission Admit Date/Time: 04/29/24 21:46 Attending Provider: Farhad Ma Primary Care Provider: Fely Bose Consulting Providers: Vicente Mao Discharge Orders/Prescriptions Prescriptions: New oxycodone 5 mg Tablet 5 mg PO Q4H PRN PRN (Reason: Pain Score 4-10) 3 Days Qty: 10 0RF Continued (DME) pen needle, diabetic 31 gauge x 1/4 needle See Rx Instructions .Route Qty: 100 0RF Rx Instructions: As directed cyclobenzaprine 5 mg PO TID PRN PRN (Reason: MUSCLE SPASMS) doxepin 25 mg capsule 25 mg PO QHS 30 Days Qty: 30 0RF quetiapine 200 mg tablet 200 mg PO QHS 30 Days Qty: 30 0RF quetiapine 100 mg tablet 100 mg PO DAILY 30 Days Qty: 30 0RF Rx Instructions: takes in morning buspirone 10 MG tablet 10 mg PO TID 30 Days Qty: 90 0RF hydroxyzine pamoate [Vistaril] 25 mg capsule 50 mg PO TID 30 Days Qty: 180 0RF insulin lispro 100 unit/mL insulin pen See Protocol subcut ACHS 30 Days Qty: 15 0RF Protocol: 5. Sliding Scale Insulin High Dosing Condition: 150-209 mg/dl = 3 units Condition: 210-259 mg/dl = 6 units Condition: 260-324 mg/dl = 9 units Condition: 325-374 mg/dl = 12 units Condition: 375-409 mg/dl = 14 units Condition: 410-449 mg/dl = 16 units Condition: Greater than 449 call physician Protocol Text: Suggested for: - Patients on Total Daily Insulin Dose of 81-120 units - Very insulin resistant patients HIGH DOSING ALGORITHM Rx Instructions: subcutaneously; aripiprazole 5 mg tablet 5 mg PO DAILY 30 Days Qty: 30 0RF insulin glargine [Lantus Solostar U-100 Insulin] 100 unit/mL (3 mL) insulin pen 35 unit subcut BIDCM 30 Days Qty: 15 0RF Linzess 72 mcg capsule 72 mcg PO DAILY 30 Days Qty: 30 0RF gabapentin 300 mg capsule 300 mg PO TID cefdinir 300 mg capsule 300 mg PO BID Qty: 14 0RF quetiapine [Seroquel] 100 mg tablet 100 mg PO DAILY Referrals / Follow Up: Fely Bose MD [Primary Care Provider] - Disposition Disposition (needs filled in before D/C Order can be placed): [facility] Facility Charges/Coding Visit Charges Inpatient E&M: 01886 Disch Hosp >30min
[2024-05-02 17:16] LABS: Bedside Glucose 63 mg/dL (74-106)
[2024-05-04 08:52] LABS: Pathologist Review Reviewed
== END 2024-05-01 13:12 | disposition skilled nursing facility (03) | DRG 194 ==
LOC: ED 21:43 → PCU 22:14
PROVIDERS: Admitting Provider Internal Medicine; Emergency Provider Emergency Medicine; PCP Internal Medicine; Referring Provider Emergency Medicine; Visit Provider Family Medicine
DX: J18.9 Pneumonia, unspecified organism (principal); R78.81 Bacteremia; E87.20 Acidosis, unspecified; R18.8 Other ascites; J44.0 Chronic obstructive pulmonary disease with (acute) lower respiratory infection; N12 Tubulo-interstitial nephritis, not specified as acute or chronic; N25.89 Other disorders resulting from impaired renal tubular function; E11.40 Type 2 diabetes mellitus with diabetic neuropathy, unspecified; K74.60 Unspecified cirrhosis of liver; F31.9 Bipolar disorder, unspecified; F19.19 Other psychoactive substance abuse with unspecified psychoactive substance-induced disorder; I10 Essential (primary) hypertension; Z68.30 Body mass index [BMI] 30.0-30.9, adult; E11.65 Type 2 diabetes mellitus with hyperglycemia; M54.50 Low back pain, unspecified; K21.9 Gastro-esophageal reflux disease without esophagitis; Z79.4 Long term (current) use of insulin; F17.210 Nicotine dependence, cigarettes, uncomplicated; F41.9 Anxiety disorder, unspecified; S00.03XA Contusion of scalp, initial encounter; K42.9 Umbilical hernia without obstruction or gangrene; W18.30XA Fall on same level, unspecified, initial encounter; B96.20 Unspecified Escherichia coli [E. coli] as the cause of diseases classified elsewhere; Z79.891 Long term (current) use of opiate analgesic; N32.89 Other specified disorders of bladder; R26.89 Other abnormalities of gait and mobility; E66.9 Obesity, unspecified; H91.92 Unspecified hearing loss, left ear; R22.2 Localized swelling, mass and lump, trunk; Z79.899 Other long term (current) drug therapy; Z88.6 Allergy status to analgesic agent; Z88.8 Allergy status to other drugs, medicaments and biological substances; R53.81 Other malaise
CPT/HCPCS: 36415; 70450; 71045; 71260; 72125; 73552; 73562; 74177; 80048; 80053; 80307; 81001; 82009; 82962; 83605; 83880; 84443; 84484; 85025; 85610; 85730; 87040; 87086; 87088; 87449; 87631; 90715; 93005; 94640; 97116; 97162; 97166; 97802; 99285; 99406; Q9967; A4216; J0696; J2405

== ENCOUNTER 2024-06-15 14:20 | Emergency (ER) | payer MEDICARE, MEDICAID, SELFPAY ==
[2024-06-15 14:23] VITALS: BP 150/96; PULSE 128; RESP 18; TEMP 36.4; O2SAT 98
== END 2024-06-15 15:18 | disposition left against medical advice (07) ==
LOC: ED 15:27
PROVIDERS: PCP Internal Medicine
DX: Z53.21 Procedure and treatment not carried out due to patient leaving prior to being seen by health care provider (principal)
CPT/HCPCS: 99281

== ENCOUNTER 2024-06-18 13:35 | Emergency (ER) | payer MEDICARE, MEDICAID, SELFPAY ==
[2024-06-18 13:36] VITALS: BP 146/105; PULSE 98; RESP 16; TEMP 36.6; O2SAT 100; BMI 22.3
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
[2024-06-18] MEDS: hydrOXYzine PAM 25 MG Capsule 50 MG PO ×2 (14:28→20:56)
[2024-06-18 14:36] VITALS: BP 151/99; PULSE 90; RESP 16; O2SAT 98
[2024-06-18 14:50] LABS: Absolute Lymphocyte Count 1.22 X10^3/uL (0.83-4.51); Absolute Neutrophil Count 3.2 X10^3/uL (2.0-7.7); Basophil# 0.03 X10^3/uL; Basophil% 0.6 % (0-1); Eosinophil# 0.15 X10^3/uL; Hematocrit 43.7 % (37-47); Hemoglobin 14.7 g/dL (12.0-15.0); Lymphocyte # 1.22 X10^3/ul (0.83-4.51); Lymphocyte % 24.5 % (19-41); Mean Corp Hgb Conc 33.6 g/dL (32-36); Mean Corpuscular Hgb 28.7 pg (27.0-32.0); Mean Corpuscular Volume 85.2 fL (81-99); Mean Platelet Vol. 10.3 fl (6.2-12.0); Monocyte# 0.39 X10^3/uL; Monocyte% 7.8 % (0-10); NRBC Flagged by Analyzer 0 % (0-5); Neutrophil # 3.15 X10^3/uL (2.7-7.7); Neutrophil % 63.5 % (47-70); Platelet Count 182 K/mm3 (150-450); RBC Distribution Width CV 13.7 % (11.6-14.6); RBC Distribution Width SD 43.1 fl (35.1-43.9); Red Blood Count 5.13 M/mm3 (4.2-5.4)
[2024-06-18 15:03] LABS: ALB/GLOB Ratio 1.3 RATIO (0.9-2.4); AST(SGOT) 52 U/L (<=31); Alanine Aminotransfer ALT/SGPT 54 U/L (<=34); Albumin, Serum 3.6 g/dL (3.5-5.0); Alcohol, Blood (Medical)-Serum < 10.1 mg/dL (<=10.0); Alkaline Phosphatase 91 U/L (35-104); Anion Gap 11 (5-15); BETA-HYDROXYBUTYRATE 0.5 mmol/L (0.0-0.3); BUN 13 mg/dL (4-19); BUN/Creat Ratio 23.5 RATIO (10-20); Calcium,Total 8.7 mg/dL (7.6-11.0); Carbon Dioxide 23.4 mmol/L (21.0-32.0); Chloride 101 mmol/L (98-108); Creatinine, Serum 0.53 mg/dL (0.70-1.20); EST Glomerular Filtration Rate 110 (>60); Estimated Creatinine Clearance 110.46 ml/min (50-250); Globulin 2.7 g/dL (2.2-4.2); Glucose 429 mg/dL (70-99); Potassium 4.3 mmol/L (3.3-5.1); Protein, Total 6.4 g/dL (5.9-8.4); Sodium Level 135 mmol/L (133-145); Total Bilirubin 0.34 mg/dL (0.00-1.30)
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
[2024-06-18 16:23] LABS: Amphetamine Urine NEGATIVE (<1000 ng/mL); Barbiturate Urine NEGATIVE (< 200 ng/mL); Benzodiazepine Urine NEGATIVE (< 200 ng/mL); Buprenorphine Urine NEGATIVE (< 200 ng/mL); Cocaine Urine PRESUMPTIVE POSITIVE (< 300 ng/mL); Fentanyl, Urine NEGATIVE; Methadone Urine NEGATIVE (< 300 ng/mL); Opiates Urine NEGATIVE (< 300 ng/mL); Oxycodone, Urine NEGATIVE (< 100 ng/mL); PCP Urine NEGATIVE (< 25 ng/mL); THC Urine NEGATIVE (< 50 ng/mL)
[2024-06-18 16:33] VITALS: BP 122/75; PULSE 82; RESP 16; O2SAT 97
--- NOTE | 2024-06-18 17:47 | CM.ED ---
Social work Referral sent to [facility] (ph: ; f: ) after speaking with Geremias and verifying bed availability. Geremias called back stating desire to have new glucose drawn to see downward trend prior to giving accepting information. Nursing updated. Brionna Delaney, MANUAL ARTS THERAPY TEACHER, DISK OPERATOR
[2024-06-18] MEDS: Insulin Lispro 100 UNIT/ML INSULN.PEN 10 UNIT SC (18:17)
[2024-06-18 18:20] LABS: Bedside Glucose 409 mg/dL (74-106)
--- NOTE | 2024-06-18 18:31 | CM.ED ---
Social work Renée RN provided updated glucose reading ([phone]) and provided patient with insulin. This was faxed, along with pink slip, to [facility]. Patient accepted at [facility] while SW was present in another patient's room. Per nursing note, PT ACCEPTED AT [facility]. N2N [phone] Plan: [facility], pending transport Brionna Delaney, ACTION INSTALLER, CVOR NURSE
[2024-06-18 18:57] LABS: Bedside Glucose 414 mg/dL (74-106)
--- NOTE | 2024-06-18 19:23 | ED.RN ---
PT ACCEPTED AT [facility]. N2N [phone]
[2024-06-18 20:58] VITALS: BP 137/85; PULSE 85; RESP 16; TEMP 36.9; O2SAT 96
== END 2024-06-18 21:12 ==
PROVIDERS: Emergency Provider Emergency Medicine; Visit Provider Emergency Medicine
DX: E11.65 Type 2 diabetes mellitus with hyperglycemia (principal); J44.9 Chronic obstructive pulmonary disease, unspecified; E11.40 Type 2 diabetes mellitus with diabetic neuropathy, unspecified; F41.9 Anxiety disorder, unspecified; Z91.148 Patient's other noncompliance with medication regimen for other reason; I10 Essential (primary) hypertension; R45.851 Suicidal ideations; F17.210 Nicotine dependence, cigarettes, uncomplicated; F32.9 Major depressive disorder, single episode, unspecified; K21.9 Gastro-esophageal reflux disease without esophagitis; Z79.899 Other long term (current) drug therapy; T74.11XA Adult physical abuse, confirmed, initial encounter; Y07.01 Husband, perpetrator of maltreatment and neglect; Z59.01 Sheltered homelessness
CPT/HCPCS: 80053; 80307; 82010; 82077; 82962; 85025; 99285

== ENCOUNTER 2024-08-29 12:05 | Emergency (ER) | payer MEDICARE, MEDICAID, SELFPAY ==
[2024-08-29 12:06] VITALS: BP 116/103; PULSE 96; RESP 16; TEMP 36.6; O2SAT 94; BMI 25.3
[2024-08-29] MEDS: Ondansetron 4 MG/2 ML Vial IV (12:59)
[2024-08-29] MEDS: 0.9% Normal Saline (1000mL) 1,000 ML 999 ML IV (12:59)
[2024-08-29 13:15] LABS: Absolute Lymphocyte Count 1.32 X10^3/uL (0.83-4.51); Absolute Neutrophil Count 3.6 X10^3/uL (2.0-7.7); Basophil# 0.04 X10^3/uL; Basophil% 0.7 % (0-1); Eosinophil# 0.21 X10^3/uL; Eosinophils% 3.7 % (0-5); Hematocrit 43.6 % (37-47); Lymphocyte # 1.32 X10^3/ul (0.83-4.51); Lymphocyte % 23.2 % (19-41); Mean Corp Hgb Conc 34.4 g/dL (32-36); Mean Corpuscular Hgb 28.5 pg (27.0-32.0); Mean Corpuscular Volume 82.9 fL (81-99); Mean Platelet Vol. 11.7 fl (6.2-12.0); Monocyte# 0.46 X10^3/uL; Monocyte% 8.1 % (0-10); NRBC Flagged by Analyzer 0 % (0-5); Neutrophil # 3.64 X10^3/uL (2.7-7.7); Neutrophil % 63.9 % (47-70); Platelet Count 179 K/mm3 (150-450); RBC Distribution Width CV 12.7 % (11.6-14.6); RBC Distribution Width SD 38.2 fl (35.1-43.9); Red Blood Count 5.26 M/mm3 (4.2-5.4); White Blood Count 5.7 K/mm3 (4.4-11.0)
[2024-08-29 13:29] LABS: BETA-HYDROXYBUTYRATE 0.6 mmol/L (0.0-0.3)
[2024-08-29 13:30] LABS: Anion Gap 12 (5-15); BUN 11 mg/dL (4-19); BUN/Creat Ratio 17.3 RATIO (10-20); Calcium,Total 9.2 mg/dL (7.6-11.0); Carbon Dioxide 24.5 mmol/L (21.0-32.0); Chloride 102 mmol/L (98-108); Creatinine, Serum 0.63 mg/dL (0.70-1.20); EST Glomerular Filtration Rate 106 (>60); Estimated Creatinine Clearance 100.82 ml/min (50-250); Glucose 332 mg/dL (70-99); Potassium 3.4 mmol/L (3.3-5.1); Sodium Level 139 mmol/L (133-145)
--- NOTE | 2024-08-29 13:34 | EX.ED.DYSGE1 ---
HPI <STEVEN Campo - Last Filed: 08/29/24 17:05> History of Present Illness Chief Complaint: Weakness Narrative Narrative: Presenting today due to feelings of generalized weakness, nausea, and concerns for elevated blood sugar. She has a history of T2DM, she is supposed to be taking insulin daily but does not currently have any insulin needles or a glucometer. She does have insulin. She reports that she has been staying with her ex- who kicked her out of the house today. She also reports that over the past few weeks her vision has been blurry bilaterally, over the past few days it has been worse. She denies fevers, chills, abdominal pain, chest pain, and shortness of breath. She has a PMH of anxiety, depression, bipolar disorder, substance abuse, COPD, hypertension, diabetes, and sarcoidosis. PFSH <STEVEN Campo - Last Filed: 08/29/24 17:05> [facility]LY [facility] Medical History Diabetic ulcer of foot associated with diabetes mellitus due to underlying condition, with bone involvement without evidence of necrosis Substance abuse Smoker MRSA (methicillin resistant staph aureus) culture positive Hearing loss, left Cancer Anxiety Depression Bipolar disorder GERD (gastroesophageal reflux disease) Cirrhosis Hepatitis Smoker On home oxygen therapy COPD (chronic obstructive pulmonary disease) Failure of outpatient treatment Abnormal EKG Preoperative cardiovascular examination Abdominal wall abscess Hypertension Neuropathy Diabetes Sarcoidosis Home Medications ?Medication ?Instructions ?Recorded ?Last Taken ?Type pen needle, diabetic 31 gauge x #100 ea 02/08/24 Unknown Rx 1/4 aripiprazole 5 mg tablet 5 mg PO DAILY antidepressant 30 02/29/24 Unknown Rx days #30 tabs buspirone 10 mg tablet 10 mg PO TID depression 30 days 02/29/24 Unknown Rx #90 tabs doxepin 25 mg capsule 25 mg PO QHS bipolar 30 days #30 02/29/24 Unknown Rx caps hydroxyzine pamoate 25 mg capsule 50 mg (2 x 25 mg) PO TID anxiety 02/29/24 Unknown Rx (Vistaril) 30 days #180 caps quetiapine 200 mg tablet 200 mg PO QHS bipolar 30 days #30 02/29/24 Unknown Rx tabs blood-glucose meter #1 ea 08/29/24 Unknown Rx cyclobenzaprine 10 mg tablet 10 mg PO TID PRN muscle spasm 08/29/24 Unknown History insulin admin supplies (Autoject 2 #1 ea 08/29/24 Unknown Rx Injection Device subcutaneous insulin pen) insulin glargine 100 unit/mL (3 40 unit subcut BIDCM blood sugar 08/29/24 Unknown History mL) subcutaneous pen (Lantus Solostar U-100 Insulin) insulin lispro 100 unit/mL 1 sliding scale dose subcut ACHS 08/29/24 Unknown History subcutaneous pen blood sugar pregabalin 50 mg capsule (Lyrica) 50 mg PO BID 08/29/24 Unknown History Allergy/AdvReac Type Severity Reaction Status Date / Time aspirin AdvReac Other Verified 08/29/24 12:08 hydromorphone (From Dilaudid) AdvReac Other Verified 08/29/24 12:08 pseudoephedrine HCl (From AdvReac Other Verified 08/29/24 12:08 Sudafed) Surgical History History of cholecystectomy Hx of brain surgery Hx of appendectomy Hx of section Hx of total adrenalectomy Social History household members: none housing: homeless Smoking Status: Current every day smoker tobacco type: cigarettes quit status: considering quitting alcohol intake: never substance use type: former substance user ROS <STEVEN Campo - Last Filed: 08/29/24 17:05> ROS ED Constitutional Constitutional ED: Denies chills or fever(s) Eyes Eyes: Reports blurry vision Cardiovascular Cardiovascular: Denies chest pain Respiratory/Chest Respiratory/Chest: Denies dyspnea Gastrointestinal Gastrointestinal: Reports nausea; Denies abdominal pain, diarrhea or vomiting Genitourinary Genitourinary ED: Denies dysuria, hematuria or urinary urgency Integumentary Denies rash Neurologic Neurologic: Reports weakness EXAM <STEVEN Campo - Last Filed: 08/29/24 17:05> Physical Exam Const Vital Signs: 08/29/24 12:06 08/29/24 12:09 08/29/24 14:06 Temperature 97.9 F Temperature Source Oral Pulse Rate 96 78 Respiratory Rate 16 18 Respiratory Effort Normal Non-Labored Respiratory Pattern Normal Blood Pressure 116/103 H 122/86 H Blood Pressure Mean 107 98 Pulse Ox 94 98 Oxygen Delivery Method Room Air 08/29/24 16:00 08/29/24 16:05 Temperature 98.3 F Temperature Source Pulse Rate 78 78 Respiratory Rate 18 18 Respiratory Effort Respiratory Pattern Blood Pressure 120/78 120/78 Blood Pressure Mean 92 92 Pulse Ox 98 98 Oxygen Delivery Method Positive well nourished, well developed and no apparent distress General Appearance ED: well developed HEENT Reports normocephalic and head/scalp atraumatic Mouth ED: Yes moist mucous membranes normal Eyes PERRL and EOMs intact bilaterally Neck full ROM and supple Chest Wall inspection of chest normal Resp normal respiratory effort and clear to auscultation bilaterally Cardio regular rate and regular rhythm GI soft to palpation, non-tender, non-distended and no masses Back/Spine normal ROM and normal to inspection Extremity normal to inspection and full ROM Neuro oriented x3, CN's II-XII intact bilaterally, moves all extremities, no focal motor deficits and no sensory deficits noted Sensorium / Orientation: awake and alert Psych mental status grossly normal and thought process normal Skin no rashes or lesions noted and no wounds <Dr. Beau Gonzalez DO - Last Filed: 08/29/24 22:10> Physical Exam Const Vital Signs: 08/29/24 12:06 08/29/24 12:09 08/29/24 14:06 Temperature 97.9 F Temperature Source Oral Pulse Rate 96 78 Respiratory Rate 16 18 Respiratory Effort Normal Non-Labored Respiratory Pattern Normal Blood Pressure 116/103 H 122/86 H Blood Pressure Mean 107 98 Pulse Ox 94 98 Oxygen Delivery Method Room Air 08/29/24 16:00 08/29/24 16:05 Temperature 98.3 F Temperature Source Pulse Rate 78 78 Respiratory Rate 18 18 Respiratory Effort Respiratory Pattern Blood Pressure 120/78 120/78 Blood Pressure Mean 92 92 Pulse Ox 98 98 Oxygen Delivery Method MDM <STEVEN Campo - Last Filed: 08/29/24 17:05> [facility] Narrative Medical decision making narrative: Patient presenting today with generalized weakness, concerns for elevated blood sugar, and blurry vision that has been ongoing over the past few weeks but worse over the past several days. She is nontoxic-appearing, she has unremarkable vital signs. Labs to be obtained to assess for DKA as well as leukocytosis, KASSY, UTI, and electrolyte abnormality. Visual acuity was assessed by the nurse, it is 20/70 bilaterally. She ambulated well in the hallway. Her CBC and BMP are unremarkable aside from being hyperglycemic at 332, UA is contaminated, she does not have any urinary symptoms to indicate a UTI, this will be cultured. She was given insulin here and IV fluids. She did report having a cough over the last several days, chest x-ray obtained and is negative for infiltrate. On reexamination she is doing well. I did consult social work because she initially said that she was kicked out of her 's house today and did not have a place to go. However she reports that she spoke with a friend and she is going to be staying there tonight and does not need assistance with finding a place to go. She is requesting to be discharged. She will be discharged in stable condition. I did give her a referral for ophthalmology and also recommended she follow-up closely with her PCP. She was given prescriptions for insulin injectors and a glucometer. Lab Data Attestation: I reviewed the patient's lab results. Labs: Laboratory Results - last 24 hr 08/29/24 08/29/24 08/29/24 12:17 13:50 14:45 WBC 5.7 RBC 5.26 Hgb 15.0 Hct 43.6 MCV 82.9 MCH 28.5 MCHC 34.4 RDW Std Deviation 38.2 RDW Coeff of Cele 12.7 Plt Count 179 MPV 11.7 Immature Gran % (Auto) 0.400 Neut % (Auto) 63.9 Lymph % (Auto) 23.2 Scurry % (Auto) 8.1 Eos % (Auto) 3.7 Baso % (Auto) 0.7 Absolute Neuts (auto) 3.6 Absolute Lymphs (auto) 1.32 Nucleated RBC % 0 Sodium 139 Potassium 3.4 Chloride 102 Carbon Dioxide 24.5 Anion Gap 12 BUN 11 Creatinine 0.63 L Estim Creat Clear Calc 100.82 Est GFR (MDRD) Non-Af 106 BUN/Creatinine Ratio 17.3 Glucose 332 H Calcium 9.2 b-Hydroxybutyric mmol/L 0.6 Urine Color Yellow Urine Clarity Cloudy Urine pH 6.0 Ur Specific Preston 1.010 Urine Protein 15 H Urine Glucose (UA) 1000 H Urine Ketones Negative Urine Occult Blood 25 H Urine Nitrite Negative Urine Bilirubin Negative Urine Urobilinogen Normal Ur Leukocyte Esterase 500 H Urine RBC 0-5 SEEN Urine WBC 25-50 SEEN Ur Squamous Epith Cells 25-50 SEEN Urine Bacteria 2+ Urine Mucus 0 SEEN Urine Yeast 1+ POC Glucose 317 H Radiography X-Ray: Read by ED Physician Diagnostic Testing: Clinical Impression(s) from Imaging Studies Chest X-Ray 08/29/24 14:30 IMPRESSION: No acute cardiopulmonary process. Reading Location: [facility] <Dr. Beau Gonzalez, DO - Last Filed: 08/29/24 22:10> [facility] MDM Narrative Medical decision making narrative: Patient presenting today with generalized weakness, concerns for elevated blood sugar, and blurry vision that has been ongoing over the past few weeks but worse over the past several days. She is nontoxic-appearing, she has unremarkable vital signs. Labs to be obtained to assess for DKA as well as leukocytosis, KASSY, UTI, and electrolyte abnormality. Visual acuity was assessed by the nurse, it is 20/70 bilaterally. She ambulated well in the hallway. Her CBC and BMP are unremarkable aside from being hyperglycemic at 332, UA is contaminated, she does not have any urinary symptoms to indicate a UTI, this will be cultured. She was given insulin here and IV fluids. She did report having a cough over the last several days, chest x-ray obtained and is negative for infiltrate. On reexamination she is doing well. I did consult social work because she initially said that she was kicked out of her 's house today and did not have a place to go. However she reports that she spoke with a friend and she is going to be staying there tonight and does not need assistance with finding a place to go. She is requesting to be discharged. She will be discharged in stable condition. I did give her a referral for ophthalmology and also recommended she follow-up closely with her PCP. She was given prescriptions for insulin injectors and a glucometer. Attending note: I have personally performed a face to face assessment of the patient and have reviewed the URI note. I personally made/approved the management plan and take responsibility for the patient management. I performed a substantive portion of the visit including all aspects of the following. My grimm findings include: History of diabetes reported dementia. Discharged from nursing facility a week ago living with her ex-. States she was kicked out today. States increasing weakness. She called the ambulance to come here. No urinary symptoms states has mild cough. No fevers. She reports no discharge from nursing facility they did not provide needles for insulin pen. She has not used it for a week. Exam nontoxic heart lungs normal abdomen soft. Workup hyperglycemia with no DKA. Urine contaminated. Chest x-ray 2 views interpreted by myself and read by radiology shows no acute process. Initial plans for social work to come see the patient as she initially reported she had nowhere to stay. She later stated she had to go. She was provided prescription to get needles for her insulin along with glucometer. Outpatient follow-up. Lab Data Labs: Laboratory Results - last 24 hr 08/29/24 08/29/24 08/29/24 12:17 13:50 14:45 WBC 5.7 RBC 5.26 Hgb 15.0 Hct 43.6 MCV 82.9 MCH 28.5 MCHC 34.4 RDW Std Deviation 38.2 RDW Coeff of Cele 12.7 Plt Count 179 MPV 11.7 Immature Gran % (Auto) 0.400 Neut % (Auto) 63.9 Lymph % (Auto) 23.2 Scurry % (Auto) 8.1 Eos % (Auto) 3.7 Baso % (Auto) 0.7 Absolute Neuts (auto) 3.6 Absolute Lymphs (auto) 1.32 Nucleated RBC % 0 Sodium 139 Potassium 3.4 Chloride 102 Carbon Dioxide 24.5 Anion Gap 12 BUN 11 Creatinine 0.63 L Estim Creat Clear Calc 100.82 Est GFR (MDRD) Non-Af 106 BUN/Creatinine Ratio 17.3 Glucose 332 H Calcium 9.2 b-Hydroxybutyric mmol/L 0.6 Urine Color Yellow Urine Clarity Cloudy Urine pH 6.0 Ur Specific Preston 1.010 Urine Protein 15 H Urine Glucose (UA) 1000 H Urine Ketones Negative Urine Occult Blood 25 H Urine Nitrite Negative Urine Bilirubin Negative Urine Urobilinogen Normal Ur Leukocyte Esterase 500 H Urine RBC 0-5 SEEN Urine WBC 25-50 SEEN Ur Squamous Epith Cells 25-50 SEEN Urine Bacteria 2+ Urine Mucus 0 SEEN Urine Yeast 1+ POC Glucose 317 H Radiography Diagnostic Testing: Clinical Impression(s) from Imaging Studies Chest X-Ray 08/29/24 14:30 IMPRESSION: No acute cardiopulmonary process. Reading Location: [facility] Discharge Plan Triage Chief Complaint: Weakness ED Midlevel Provider: Monisha Doe ED Provider: Beau Gonzalez Dx/Rx/DC Orders Clinical Impression: Uncontrolled diabetes mellitus, Hyperglycemia, Decreased visual acuity, Nausea, Weakness Instructions: ED Blurred Vision, ED Diabetic Hyperglycemia Prescriptions: New (DME) blood-glucose meter Misc See Rx Instructions .Route Qty: 1 0RF Rx Instructions: As directed (DME) Autoject 2 Injection Device Insulin Pen See Rx Instructions .Route Qty: 1 0RF Rx Instructions: As directed No Action (DME) pen needle, diabetic 31 gauge x 1/4 needle See Rx Instructions .Route Qty: 100 0RF Rx Instructions: As directed cyclobenzaprine 10 mg tablet 10 mg PO TID PRN (Reason: muscle spasm) pregabalin [Lyrica] 50 mg capsule 50 mg PO BID insulin lispro 100 unit/mL insulin pen 1 sliding scale dose subcut ACHS Protocol: 5. Sliding Scale Insulin High Dosing Condition: 150-209 mg/dl = 3 units Condition: 210-259 mg/dl = 6 units Condition: 260-324 mg/dl = 9 units Condition: 325-374 mg/dl = 12 units Condition: 375-409 mg/dl = 14 units Condition: 410-449 mg/dl = 16 units Condition: Greater than 449 call physician Protocol Text: Suggested for: - Patients on Total Daily Insulin Dose of 81-120 units - Very insulin resistant patients HIGH DOSING ALGORITHM Patient Comments: PT TAKES 10 UNITS PLUS SLIDING SCALE DOSE. Rx Instructions: subcutaneously; insulin glargine [Lantus Solostar U-100 Insulin] 100 unit/mL (3 mL) insulin pen 40 unit subcut BIDCM doxepin 25 mg capsule 25 mg PO QHS 30 Days Qty: 30 0RF quetiapine 200 mg tablet 200 mg PO QHS 30 Days Qty: 30 0RF buspirone 10 MG tablet 10 mg PO TID 30 Days Qty: 90 0RF hydroxyzine pamoate [Vistaril] 25 mg capsule 50 mg PO TID 30 Days Qty: 180 0RF aripiprazole 5 mg tablet 5 mg PO DAILY 30 Days Qty: 30 0RF Primary Care Provider: Care Physician,No Primary Referrals: Grady Alegre MD [Med Staff - Active Staff] - 3-5 Days Care Physician,No Primary [Primary Care Provider] - Activity Restrictions/Additional Instructions: Follow-up with ophthalmology and your PCP. Return for any other concerns or worsening symptoms. Print Language: Albanian Disposition Disposition: Home, Self Care Discharge Date/Time: 08/29/24 16:10
--- NOTE | 2024-08-29 13:40 | CM.ED ---
Social Work: Date of referral: 08/29/24 Reason for referral: No PCP Referred by: Social Work Identification Patient provided consent to social work visit. Patient half asleep and was resting when manager social services arrived. pole frame construction worker left a written handout for patient for the [facility] and encouraged patient to get established with a PCP. No other needs/concerns/requests. Esmer Blue, [employer] CHLORIDE HELPER, [employer]ER
[2024-08-29 13:54] LABS: Mucous, Urine 0 SEEN /hpf (<or=2+)
[2024-08-29 13:59] LABS: Color, Urine Yellow (Yellow); Glucose, Dipstick 1000 mg/dl (Normal); Ketone-Dipstick Negative (Negative); Leukocyte Esterase-Dipstick 500 /ul (Negative); Nitrite-Dipstick Negative (Negative); Occult Blood-Urine 25 /ul (Negative); Protein-Dipstick 15 mg/dl (Negative); Urine Bilirubin Dipstick Negative (Negative); Urine Clarity Cloudy (Clear); Urine Urobilinogen Normal (Normal)
[2024-08-29 14:06] VITALS: BP 122/86; PULSE 78; RESP 18; O2SAT 98
--- NOTE | 2024-08-29 14:30 | RAD_ITS ---
EXAM: XR Chest, 2 Views CLINICAL INDICATION: COUGH TECHNIQUE: Frontal and lateral views of the chest. COMPARISON: No relevant prior studies available. FINDINGS: LUNGS AND PLEURAL SPACES: Unremarkable. No consolidation. No pneumothorax. HEART: Unremarkable. No cardiomegaly. MEDIASTINUM: Unremarkable. Normal mediastinal contour. BONES/JOINTS: Unremarkable. No acute fracture. RAD/Chest PA and Lateral IMPRESSION: No acute cardiopulmonary process. Reading Location: [id number]
[2024-08-29 14:34] LABS: White Blood Cells 25-50 SEEN /hpf (0-5)
[2024-08-29 14:36] LABS: Red Blood Cells-Urine 0-5 SEEN /hpf (0-5); Squamous Epithelial Cells - UA 25-50 SEEN /hpf (5-10)
[2024-08-29 14:37] LABS: Bacteria 2+ /hpf (None Seen); Yeast-Urine 1+ /hpf (None Seen)
[2024-08-29] MEDS: Insulin Lispro 100 UNIT/ML INSULN.PEN 10 UNIT SC (14:46)
[2024-08-29 15:06] LABS: Bedside Glucose 317 mg/dL (74-106)
[2024-08-29 16:00] VITALS: BP 120/78; PULSE 78; RESP 18; O2SAT 98
--- NOTE | 2024-08-29 16:02 | ED.RN ---
THIS PT RINGS CALL LIGHT AND STATES SHE NEEDS TO GO SHE HAS SOMEWHERE TO BE. THIS NURSE INFORMS PT WE ARE WAITING FOR SOCIAL WORK TO TALK WITH PT D/T PT STATING IN TRAIGE SHE HAS NO WHERE TO GO. THIS PT TELLS THIS NURSE I JUST MADE A PHONE CALL I WANTT TO GO THIS NURSE EDUCATED PT ABOUT THE BENEIFTS OF A SOCIAL WORK CONSULTATION. PT STILL STATES SHE WANTS TO LEAVE AND DOES NOT NEED IT. DR. WILSON NOTIFIED
[2024-08-29 16:05] VITALS: BP 120/78; PULSE 78; RESP 18; TEMP 36.8; O2SAT 98
--- NOTE | 2024-08-29 16:08 | ED.RN ---
LA RINGS OUT AGAIN ASKING TO LEAVE DESPITE THIS RN TELLING PT THE DR WAS NOTIFIED AND WILL BE IN SHORTLY. CHARGE NURSE DAR WENT IN AND REMOVED PT IV UPON PT REQUEST. PT STATES SHE IS LEAVING.
== END 2024-08-29 16:10 | disposition home or self-care (01) ==
PROVIDERS: Physician Assistant; Emergency Provider Emergency Medicine; Visit Provider Emergency Medicine
DX: E11.65 Type 2 diabetes mellitus with hyperglycemia (principal); J44.9 Chronic obstructive pulmonary disease, unspecified; E11.40 Type 2 diabetes mellitus with diabetic neuropathy, unspecified; Z79.4 Long term (current) use of insulin; F17.210 Nicotine dependence, cigarettes, uncomplicated; R53.1 Weakness; R11.0 Nausea; I10 Essential (primary) hypertension; H54.7 Unspecified visual loss
CPT/HCPCS: 71046; 80048; 81001; 82010; 82962; 85025; 87086; 87088; 96361; 96374; 99284; A4216; J2405

== ENCOUNTER 2024-08-31 16:21 | Emergency (ER) | payer MEDICARE, MEDICAID, SELFPAY ==
[2024-08-31 16:22] VITALS: BP 156/90; PULSE 108; RESP 16; TEMP 36.6; O2SAT 97; BMI 24.4
--- NOTE | 2024-08-31 16:43 | EX.ED.DYSGE1 ---
HPI History of Present Illness Chief Complaint: General Illness Informant: patient Onset/Context/Timing Onset: Days Context: Gradual Onset Timing: Continuous Current Severity: Mild Maximum Severity: Mild Narrative Narrative: 53-year-old female history of diabetes, COPD, hypertension, bipolar, fibromyalgia and neuropathy. States she has not felt well over the last several days. Currently is homeless. She was with her ex who recently threw her out of the home that she was living in. She has been homeless the last several days. Says she has financial concerns. Was seen in the emergency department recently was written prescriptions for diabetes but she has not been able to pick those up yet. Denies any dysuria. Denies any vomiting or diarrhea. She does states she has chronic pain in both hands from neuropathy. That is not new. The other day when she is in the emergency department they try to get a forensic social worker consult but she left prior to that being obtained. Prior similar symptoms: Yes Recent Illness/Hospitalization: Yes [facility] Medical History Diabetic ulcer of foot associated with diabetes mellitus due to underlying condition, with bone involvement without evidence of necrosis Substance abuse Smoker MRSA (methicillin resistant staph aureus) culture positive Hearing loss, left Cancer Anxiety Depression Bipolar disorder GERD (gastroesophageal reflux disease) Cirrhosis Hepatitis Smoker On home oxygen therapy COPD (chronic obstructive pulmonary disease) Failure of outpatient treatment Abnormal EKG Preoperative cardiovascular examination Abdominal wall abscess Hypertension Neuropathy Diabetes Sarcoidosis Home Medications ?Medication ?Instructions ?Recorded ?Last Taken ?Type pen needle, diabetic 31 gauge x #100 ea 02/08/24 Unknown Rx 1/4 aripiprazole 5 mg tablet 5 mg PO DAILY antidepressant 30 02/29/24 Unknown Rx days #30 tabs buspirone 10 mg tablet 10 mg PO TID depression 30 days 02/29/24 Unknown Rx #90 tabs doxepin 25 mg capsule 25 mg PO QHS bipolar 30 days #30 02/29/24 Unknown Rx caps hydroxyzine pamoate 25 mg capsule 50 mg (2 x 25 mg) PO TID anxiety 02/29/24 Unknown Rx (Vistaril) 30 days #180 caps quetiapine 200 mg tablet 200 mg PO QHS bipolar 30 days #30 02/29/24 Unknown Rx tabs blood-glucose meter #1 ea 08/29/24 Unknown Rx cyclobenzaprine 10 mg tablet 10 mg PO TID PRN muscle spasm 08/29/24 Unknown History insulin admin supplies (Autoject 2 #1 ea 08/29/24 Unknown Rx Injection Device subcutaneous insulin pen) insulin glargine 100 unit/mL (3 40 unit subcut BIDCM blood sugar 08/29/24 Unknown History mL) subcutaneous pen (Lantus Solostar U-100 Insulin) insulin lispro 100 unit/mL 1 sliding scale dose subcut ACHS 08/29/24 Unknown History subcutaneous pen blood sugar pregabalin 50 mg capsule (Lyrica) 50 mg PO BID 08/29/24 Unknown History Allergy/AdvReac Type Severity Reaction Status Date / Time aspirin AdvReac Other Verified 08/29/24 12:08 hydromorphone (From Dilaudid) AdvReac Other Verified 08/29/24 12:08 pseudoephedrine HCl (From AdvReac Other Verified 08/29/24 12:08 Sudafed) Surgical History History of cholecystectomy Hx of brain surgery Hx of appendectomy Hx of section Hx of total adrenalectomy Social History household members: none housing: homeless Smoking Status: Current every day smoker tobacco type: cigarettes quit status: considering quitting alcohol intake: never substance use type: former substance user ROS ROS ED ROS Narrative Generalized malaise. Elevated blood sugar. Denies vomiting diarrhea or fever. No dysuria. No cough. Constitutional Constitutional ED: Denies chills or fever(s) Eyes Eyes: Denies blurry vision ENT ENT ED: Denies ear pain Cardiovascular Cardiovascular: Denies chest pain Respiratory/Chest Respiratory/Chest: Denies cough or dyspnea Gastrointestinal Gastrointestinal: Denies abdominal pain, constipation, diarrhea, melena, nausea or vomiting Genitourinary Genitourinary ED: Denies dysuria or hematuria Musculoskeletal Musculoskeletal: Denies arthralgias or back pain Integumentary Denies abscess or Abrasions Neurologic Neurologic: Denies headache(s) Psychiatric Psychiatric: Denies anxiety or depression Endocrine Endocrinology: Denies cold intolerance Hematologic/Lymphatic Hematologic/Lymphatic: Reports none Allergic/Immunologic Allergic/Immunologic ED: Denies mouth swelling, tongue swelling or urticaria EXAM Physical Exam Narrative Exam Narrative: 53-year-old female sitting upright in bed. Vital signs are stable afebrile. She does not look septic toxic or in distress. Pulse ox 97% on room air no hypoxia. H EENT exam pupils round react light. Moist mucous membranes. Neck nontender no JVD. No lymphadenopathy. Back nontender. Lungs clear to auscultation bilaterally. Heart regular rhythm rate about 105 no murmur. Chest wall ribs nontender. Abdomen soft nontender. Moving all 4 extremities. 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 Equal symmetrical radial pulses. No swelling or redness. Normal dorsi plantarflexion. Calves are nontender without edema or cords. Neurologically she is awake and alert. Answering questions following commands. Benign exam. Const Vital Signs: 08/31/24 16:22 08/31/24 16:25 08/31/24 18:20 Temperature 97.8 F Temperature Source Oral Pulse Rate 108 H 76 Respiratory Rate 16 19 H Respiratory Effort Normal Respiratory Pattern Normal Blood Pressure 156/90 H 110/78 Blood Pressure Mean 112 88 Pulse Ox 97 99 Oxygen Delivery Method Room Air Room Air 08/31/24 19:39 08/31/24 21:00 Temperature Temperature Source Pulse Rate 85 79 Respiratory Rate 16 18 Respiratory Effort Respiratory Pattern Blood Pressure 134/80 H 128/60 H Blood Pressure Mean 98 82 Pulse Ox 99 96 Oxygen Delivery Method Room Air Room Air Positive well nourished and well developed; Negative for cachectic, contractures or unkempt General Appearance ED: well developed and NAD; Negative for unkempt, cachectic, contractures, cyanotic, diaphoretic or pallor Nutritional Appearance: Negative for cachectic HEENT Reports moist mucous membranes Negative for trauma or tenderness Eyes EOMs intact bilaterally General Eye ED: Negative for pale conjunctiva or scleral icterus Neck no lymphadenopathy, supple and no JVD General: Negative for tenderness Chest Wall inspection of chest normal and palpation of chest normal Resp normal respiratory effort and clear to auscultation bilaterally Effort and Inspection: Negative for retractions or pain with movement Auscultation: Negative for rales, rhonchi, wheezes or diminished lung sounds Cardio regular rhythm, S1 normal heart sound, S2 normal heart sound and no murmurs; Negative for regular rate Rate: tachycardic GI normal to inspection, nondistended, normoactive bowel sounds, non-tender, non-distended and no masses Auscultation: normoactive bowel sounds Palpation: soft; Negative for tender, guarding or rebound tenderness present Back/Spine no CVA tenderness General Back: Negative for CVA tenderness Cervical Spine: Negative for cervical spine tenderness Thoracic Spine / Upper Back: Negative for thoracic spinal tenderness or paraspinal muscle tenderness Lumbar Spine / Lower Back: Negative for lumbar spinal tenderness Extremity normal to inspection General Extremety ED: Negative for edema or tenderness General Extremity: Negative for edema Neuro oriented x3, CN's II-XII intact bilaterally and No no sensory deficits noted Neuro Narrative: Neuropathy both hands. Sensorium / Orientation: alert; Negative for orientation impaired, lethargic or stuporous Motor Exam: strength 5/5 throughout Psych mental status grossly normal Appearance: Negative for unkempt Attitude: No agitated Mood & Affect: Negative for depressed, anxious or tearful Skin no rashes or lesions noted, no wounds and skin turgor normal General Skin Exam: elasticity normal; Negative for jaundice or pallor Lesions: No lesion noted Rashes: No rashes noted Trauma: Negative for abrasion Wounds: Negative for wounds noted MDM MDM MDM Narrative Medical decision making narrative: 53-year-old diabetic bipolar patient currently homeless. Having general malaise. Exam is benign. She was seen 2 days ago had unremarkable labs. Will get screening labs and a urinalysis. She will be evaluated by elementary school social worker. Repeat exam patient is doing well at 8:15 PM. bakery worker conveyor line spoke to her. Trying to get her into a outpatient rehab facility does methamphetamines. If they are unable to do that she does not meet criteria for admission here. Also the social workers tried multiple homeless shelters and they are all full at this time. She will be given Humalog subcu 10 units and have her blood sugar rechecked in an hour. Again I asked her if she is having no urinary symptoms. A culture will be sent I would not treat at this time. bakery worker conveyor line cannot get the patient in any type of residential or detox facility tonight. She will be discharged to home. Outpatient follow-up. Patient is currently resting comfortably at 915. The recheck of her blood sugar prior to discharge. History & Record Review Discussion w/independent historian: Patient Additional record(s) reviewed:: Prior inpatient record, Prior outpatient record, Prior ED visit and Prior labs Lab Data Attestation: I reviewed the patient's lab results. Lab results narrative: CBC shows a white count of 5. H&H 14 and 42. Platelets 211. Electrolytes show sodium 138. Potassium slightly low at 3.2. Gap 12. BUN is 7 creatinine 0.5. Glucose 333. Beta Droxia butyric acid is normal at 0.6. Urinalysis shows no nitrites. 10-25 red cells. 10-25 white cells. 1+ bacteria. She is not having any urinary symptoms. Urine culture will be sent. Labs: Laboratory Results - last 24 hr 08/31/24 08/31/24 16:55 17:06 WBC 5.2 RBC 5.15 Hgb 14.5 Hct 42.4 MCV 82.3 MCH 28.2 MCHC 34.2 RDW Std Deviation 38.5 RDW Coeff of Cele 13.0 Plt Count 211 MPV 9.9 Immature Gran % (Auto) 0.400 Neut % (Auto) 63.3 Lymph % (Auto) 24.2 [place] % (Auto) 8.6 Eos % (Auto) 2.7 Baso % (Auto) 0.8 Absolute Neuts (auto) 3.3 Absolute Lymphs (auto) 1.26 Nucleated RBC % 0 Sodium 138 Potassium 3.2 L Chloride 101 Carbon Dioxide 24.8 Anion Gap 12 BUN 7 Creatinine 0.52 L Estim Creat Clear Calc 112.58 Est GFR (MDRD) Non-Af 111 BUN/Creatinine Ratio 14.3 Glucose 333 H Calcium 9.0 b-Hydroxybutyric mmol/L 0.6 Urine Color Yellow Urine Clarity Cloudy Urine pH 6.0 Ur Specific [place] 1.015 Urine Protein 15 H Urine Glucose (UA) 1000 H Urine Ketones 15 H Urine Occult Blood 10 H Urine Nitrite Negative Urine Bilirubin Negative Urine Urobilinogen 1 H Ur Leukocyte Esterase 100 H Urine RBC 10-25 SEEN Urine WBC 10-25 SEEN Ur Squamous Epith Cells 0 SEEN Urine Bacteria 1+ Urine Mucus 0 SEEN Rhythm Strip Rhythm Strip: Sinus Rhythm Rate: 90 Ectopy: None EKG Initial EKG: Attestation: I personally reviewed and interpreted this EKG as follows: Interpretation: Sinus Rhythm and No Acute Injury Pattern Comments: Normal sinus rhythm rate of 90 no acute signs of MA or ischemia. Discharge Plan Triage Chief Complaint: General Illness ED Provider: Nate Conrad Dx/Rx/DC Orders Clinical Impression: Hyperglycemia due to diabetes mellitus, History of homeless, History of bipolar disorder, History of fibromyalgia Instructions: ED Diabetic Hyperglycemia Prescriptions: No Action (DME) pen needle, diabetic 31 gauge x 1/4 needle See Rx Instructions .Route Qty: 100 0RF Rx Instructions: As directed cyclobenzaprine 10 mg tablet 10 mg PO TID PRN (Reason: muscle spasm) pregabalin [Lyrica] 50 mg capsule 50 mg PO BID insulin lispro 100 unit/mL insulin pen 1 sliding scale dose subcut ACHS Protocol: 5. Sliding Scale Insulin High Dosing Condition: 150-209 mg/dl = 3 units Condition: 210-259 mg/dl = 6 units Condition: 260-324 mg/dl = 9 units Condition: 325-374 mg/dl = 12 units Condition: 375-409 mg/dl = 14 units Condition: 410-449 mg/dl = 16 units Condition: Greater than 449 call physician Protocol Text: Suggested for: - Patients on Total Daily Insulin Dose of 81-120 units - Very insulin resistant patients HIGH DOSING ALGORITHM Patient Comments: PT TAKES 10 UNITS PLUS SLIDING SCALE DOSE. Rx Instructions: subcutaneously; insulin glargine [Lantus Solostar U-100 Insulin] 100 unit/mL (3 mL) insulin pen 40 unit subcut BIDCM (DME) blood-glucose meter Misc See Rx Instructions .Route Qty: 1 0RF Rx Instructions: As directed (DME) Autoject 2 Injection Device Insulin Pen See Rx Instructions .Route Qty: 1 0RF Rx Instructions: As directed doxepin 25 mg capsule 25 mg PO QHS 30 Days Qty: 30 0RF quetiapine 200 mg tablet 200 mg PO QHS 30 Days Qty: 30 0RF buspirone 10 MG tablet 10 mg PO TID 30 Days Qty: 90 0RF hydroxyzine pamoate [Vistaril] 25 mg capsule 50 mg PO TID 30 Days Qty: 180 0RF aripiprazole 5 mg tablet 5 mg PO DAILY 30 Days Qty: 30 0RF Primary Care Provider: Care Physician,No Primary Referrals: Care Physician,No Primary [Primary Care Provider] - India Ruiz NP-C [Non-Staff] - As soon as possible Activity Restrictions/Additional Instructions: Watch your blood sugars closely. [facility] to get a [facility] primary care [facility]. Print Language: Latvian Disposition Disposition: Home, Self Care
[2024-08-31 17:04] LABS: Absolute Lymphocyte Count 1.26 X10^3/uL (0.83-4.51); Absolute Neutrophil Count 3.3 X10^3/uL (2.0-7.7); Basophil# 0.04 X10^3/uL; Basophil% 0.8 % (0-1); Eosinophil# 0.14 X10^3/uL; Eosinophils% 2.7 % (0-5); Hematocrit 42.4 % (37-47); Hemoglobin 14.5 g/dL (12.0-15.0); Lymphocyte # 1.26 X10^3/ul (0.83-4.51); Lymphocyte % 24.2 % (19-41); Mean Corp Hgb Conc 34.2 g/dL (32-36); Mean Corpuscular Hgb 28.2 pg (27.0-32.0); Mean Corpuscular Volume 82.3 fL (81-99); Mean Platelet Vol. 9.9 fl (6.2-12.0); Monocyte# 0.45 X10^3/uL; Monocyte% 8.6 % (0-10); NRBC Flagged by Analyzer 0 % (0-5); Neutrophil % 63.3 % (47-70); Platelet Count 211 K/mm3 (150-450); RBC Distribution Width SD 38.5 fl (35.1-43.9); Red Blood Count 5.15 M/mm3 (4.2-5.4); White Blood Count 5.2 K/mm3 (4.4-11.0)
[2024-08-31 17:10] LABS: Mucous, Urine 0 SEEN /hpf (<or=2+); Squamous Epithelial Cells - UA 0 SEEN /hpf (5-10)
[2024-08-31] MEDS: 0.9% Normal Saline (1000mL) 1,000 ML 1000 ML IV (17:11)
[2024-08-31 17:25] LABS: Color, Urine Yellow (Yellow); Glucose, Dipstick 1000 mg/dl (Normal); Ketone-Dipstick 15 mg/dl (Negative); Leukocyte Esterase-Dipstick 100 /ul (Negative); Nitrite-Dipstick Negative (Negative); Occult Blood-Urine 10 /ul (Negative); Protein-Dipstick 15 mg/dl (Negative); Specific Gravity, Urine 1.015 (1.002-1.030); Urine Bilirubin Dipstick Negative (Negative); Urine Clarity Cloudy (Clear); Urine Urobilinogen 1 mg/dl (Normal)
[2024-08-31 17:28] LABS: Anion Gap 12 (5-15); BETA-HYDROXYBUTYRATE 0.6 mmol/L (0.0-0.3); BUN 7 mg/dL (4-19); BUN/Creat Ratio 14.3 RATIO (10-20); Carbon Dioxide 24.8 mmol/L (21.0-32.0); Chloride 101 mmol/L (98-108); Creatinine, Serum 0.52 mg/dL (0.70-1.20); EST Glomerular Filtration Rate 111 (>60); Estimated Creatinine Clearance 112.58 ml/min (50-250); Glucose 333 mg/dL (70-99); Potassium 3.2 mmol/L (3.3-5.1); Sodium Level 138 mmol/L (133-145)
[2024-08-31] MEDS: Acetaminophen 500 MG Tablet 1000 MG PO (18:09)
[2024-08-31 18:20] VITALS: BP 110/78; PULSE 76; RESP 19; O2SAT 99
[2024-08-31 18:38] LABS: White Blood Cells 10-25 SEEN /hpf (0-5)
[2024-08-31 18:39] LABS: Bacteria 1+ /hpf (None Seen); Red Blood Cells-Urine 10-25 SEEN /hpf (0-5)
[2024-08-31] MEDS: Ibuprofen 600 MG Tablet PO (19:37)
[2024-08-31 19:39] VITALS: BP 134/80; PULSE 85; RESP 16; O2SAT 99
--- NOTE | 2024-08-31 20:13 | CM.ED ---
Social Work SW met with patient who stated she currently does not have a place to live as she was staying at her ex husbands but he kicked her out again. Patient states that he gets angry when she does not do what he wants and then he will not let her stay there. Patient stated she had no other friends or family where she could stay. SW contacted [facility] and [facility], neither had any openings. Patient was given resources for community actin transit, [facility], metro housing, and food/meal times and locations. Patient then stated that she has had a recent relapse with drugs and she feels she needs rehab. Patient requested a referral be sent to [facility] in [place]. Referral was faxed and SW received a fax confirmation that it was received. SW called back an hour later to check on referral, was told they had not received it. SW resent referral and called to confirm receipt. [facility] stated they had received and would call SW back with determination. Sharonda Navarro, RETIREMENT ASSISTANT, WINDSHIELD WIPER REPAIRER
[2024-08-31] MEDS: Insulin Lispro 100 UNIT/ML INSULN.PEN 10 UNIT SC (20:28)
[2024-08-31 21:00] VITALS: BP 128/60; PULSE 79; RESP 18; O2SAT 96
--- NOTE | 2024-08-31 21:16 | CM.ED ---
Social Work [facility] stated they do not have a physician available to review referral until tomorrow. Patient notified of same and given phone number to call for follow up. No further needs identified at this time. Sharonda Navarro, DOUGH MOLDER, RELAY TELEGRAPHER
--- NOTE | 2024-08-31 21:18 | ED.RN ---
pt refused a blood sugar recheck, Dr rothman made aware.
[2024-08-31 21:19] VITALS: BP 128/60; PULSE 79; RESP 18; TEMP 36.7; O2SAT 96
== END 2024-08-31 21:20 | disposition home or self-care (01) ==
PROVIDERS: Emergency Provider Emergency Medicine; Visit Provider Emergency Medicine
DX: E11.65 Type 2 diabetes mellitus with hyperglycemia (principal); F31.9 Bipolar disorder, unspecified; J44.9 Chronic obstructive pulmonary disease, unspecified; E11.40 Type 2 diabetes mellitus with diabetic neuropathy, unspecified; Z79.4 Long term (current) use of insulin; F17.210 Nicotine dependence, cigarettes, uncomplicated; I10 Essential (primary) hypertension; M79.7 Fibromyalgia; Z59.00 Homelessness unspecified; R53.81 Other malaise
CPT/HCPCS: 80048; 81001; 82010; 85025; 87086; 87088; 96360; 96361; 99283; A4216

== ENCOUNTER 2024-09-01 07:51 | Emergency (ER) | payer MEDICARE, MEDICAID, SELFPAY ==
[2024-09-01] VITALS (9 sets, daily range): BP systolic 112–139; BP diastolic 38–90; PULSE 66–90; RESP 16–22; TEMP 36.1; O2SAT 94–100; BMI 24.5
--- NOTE | 2024-09-01 08:26 | EKG12_ITS ---
Test Reason : CP Blood Pressure : */* mmHG Vent. Rate : 90 BPM Atrial Rate : 90 BPM P-R Int : 148 ms QRS Dur : 80 ms QT Int : 378 ms P-R-T Axes : 25 -18 -16 degrees QTcB Int : 462 ms Normal sinus rhythm Septal infarct , age undetermined Inferior infarct , age undetermined Abnormal ECG Confirmed by TOMMY BAUMANN, NICKOLAS ([id number]), video news editor SYLVESTER BURCH ([id number]) on 09/01/2024 1:28:51 PM Referred By: TAM Confirmed By: NICKOLAS SANDERS MD
--- NOTE | 2024-09-01 08:27 | RAD_ITS ---
PROCEDURE: CHEST PA AND LATERAL 09/01/2024 REASON FOR EXAM: CHEST PAIN TECHNIQUE: Frontal and lateral views of the chest. COMPARISON: August 29, 2024 FINDINGS: Heart size and mediastinal configuration are within normal limits. There is no focal infiltrate or consolidation. There is no pneumothorax or effusion. Aortic calcifications are noted. Surgical clips are present in the right upper quadrant. RAD/Chest PA and Lateral IMPRESSION: No acute process is identified in the chest. Reading Location: [facility]
--- NOTE | 2024-09-01 08:30 | ED.VIS.DYS ---
HPI History of Present Illness Chief Complaint: Shortness of Breath Informant: patient Narrative Narrative: Patient 53-year-old female with history of drug abuse, COPD, diabetes mellitus, bipolar disorder, fibromyalgia, neuropathy and sarcoidosis presenting with chest discomfort and shortness of breath. Patient states her chest feels tight and she has had a cough is been productive. Started yesterday. She feels that she needs a breathing treatment. Patient was seen in our ER yesterday for generalized malaise and not feeling well. At that time she recently became homeless and was looking for manager social work. She was noted to have elevated blood sugar and given some insulin. They would not able to get her to any type of treatment facility last night and she was discharged. Patient states she went to a homeless retirement last night. She continues to feel unwell and feels that she needs a breathing treatment. She denies any fevers. Is requesting Toradol for the pain in her hands which she states is consistent with her neuropathy. Denies any drug use since leaving the ER. Denies any swelling of her legs. States discomfort in her chest feels like a tightness. States she overall just feels terrible. No other complaints or concerns reported at this time. [facility] Medical History Diabetic ulcer of foot associated with diabetes mellitus due to underlying condition, with bone involvement without evidence of necrosis Substance abuse Smoker MRSA (methicillin resistant staph aureus) culture positive Hearing loss, left Cancer Anxiety Depression Bipolar disorder GERD (gastroesophageal reflux disease) Cirrhosis Hepatitis Smoker On home oxygen therapy COPD (chronic obstructive pulmonary disease) Failure of outpatient treatment Abnormal EKG Preoperative cardiovascular examination Abdominal wall abscess Hypertension Neuropathy Diabetes Sarcoidosis Home Medications ?Medication ?Instructions ?Recorded ?Last Taken ?Type pen needle, diabetic 31 gauge x #100 ea 02/08/24 Unknown Rx 1/4 aripiprazole 5 mg tablet 5 mg PO DAILY antidepressant 30 02/29/24 Unknown Rx days #30 tabs buspirone 10 mg tablet 10 mg PO TID depression 30 days 02/29/24 Unknown Rx #90 tabs doxepin 25 mg capsule 25 mg PO QHS bipolar 30 days #30 02/29/24 Unknown Rx caps hydroxyzine pamoate 25 mg capsule 50 mg (2 x 25 mg) PO TID anxiety 02/29/24 Unknown Rx (Vistaril) 30 days #180 caps quetiapine 200 mg tablet 200 mg PO QHS bipolar 30 days #30 02/29/24 Unknown Rx tabs blood-glucose meter #1 ea 08/29/24 Unknown Rx cyclobenzaprine 10 mg tablet 10 mg PO TID PRN muscle spasm 08/29/24 Unknown History insulin admin supplies (Autoject 2 #1 ea 08/29/24 Unknown Rx Injection Device subcutaneous insulin pen) insulin glargine 100 unit/mL (3 40 unit subcut BIDCM blood sugar 08/29/24 Unknown History mL) subcutaneous pen (Lantus Solostar U-100 Insulin) insulin lispro 100 unit/mL 1 sliding scale dose subcut ACHS 08/29/24 Unknown History subcutaneous pen blood sugar pregabalin 50 mg capsule (Lyrica) 50 mg PO BID 08/29/24 Unknown History Allergy/AdvReac Type Severity Reaction Status Date / Time aspirin AdvReac Other Verified 09/01/24 07:52 hydromorphone (From Dilaudid) AdvReac Other Verified 09/01/24 07:52 pseudoephedrine HCl (From AdvReac Other Verified 09/01/24 07:52 Sudafed) Surgical History History of cholecystectomy Hx of brain surgery Hx of appendectomy Hx of section Hx of total adrenalectomy Social History household members: none housing: homeless Smoking Status: Current every day smoker tobacco type: cigarettes quit status: considering quitting alcohol intake: never substance use type: former substance user ROS ROS ED Constitutional Constitutional ED: Denies chills or fever(s) Eyes Eyes: Denies change in vision ENT ENT ED: Denies sore throat Cardiovascular Cardiovascular: Reports chest pain Respiratory/Chest Respiratory/Chest: Reports cough and dyspnea Gastrointestinal Gastrointestinal: Denies abdominal pain or vomiting Musculoskeletal Musculoskeletal: Reports arthralgias and myalgias Integumentary Denies rash Neurologic Neurologic: Reports weakness Psychiatric Psychiatric: Reports anxiety Hematologic/Lymphatic Hematologic/Lymphatic: Denies easy bleeding or easy bruising EXAM Physical Exam Const Vital Signs: 09/01/24 07:51 09/01/24 07:58 09/01/24 08:34 Temperature 97 F L Temperature Source Temporal Pulse Rate 79 82 Respiratory Rate 16 18 Respiratory Depth Normal Respiratory Pattern Normal Blood Pressure 136/90 H Blood Pressure Mean 105 Pulse Ox 98 Oxygen Delivery Method Room Air 09/01/24 08:37 09/01/24 09:52 09/01/24 11:59 Temperature Temperature Source Pulse Rate 76 66 Respiratory Rate 22 H 21 H Respiratory Depth Respiratory Pattern Blood Pressure 117/61 Blood Pressure Mean 79 Pulse Ox 100 97 Oxygen Delivery Method Room Air 09/01/24 12:58 09/01/24 15:00 Temperature Temperature Source Pulse Rate 88 73 Respiratory Rate 17 Respiratory Depth Respiratory Pattern Blood Pressure 139/38 H 112/60 Blood Pressure Mean 71 77 Pulse Ox 97 95 Oxygen Delivery Method Room Air Room Air Positive well nourished and well developed General Appearance ED: well developed and NAD HEENT Reports moist mucous membranes Eyes PERRL Neck supple and no JVD Resp normal respiratory effort and clear to auscultation bilaterally Auscultation: Negative for rhonchi, wheezes or diminished lung sounds Cardio regular rate, regular rhythm and no murmurs Cardio Narrative: 2+ radial DP pulses present. No peripheral edema appreciated. GI non-distended Extremity normal to inspection General Extremety ED: Negative for edema or tenderness General Extremity: Negative for edema Neuro oriented x3 Sensorium / Orientation: alert Motor Exam: Negative for general weakness Psych mental status grossly normal Mood & Affect: anxious Skin Skin Narrative: Healing abrasions on the feet (dorsal aspect)?patient states they are from her shoes MDM MDM MDM Narrative Medical decision making narrative: Patient evaluated for chest tightness, cough and generalized malaise. She was seen in our ER last night but at that time was more for generalized malaise symptoms social issues (drug abuse and homelessness). She reports crack cocaine abuse to me but reported methamphetamine abuse last night. Patient does not appear to be in any type of active withdrawal. Given her risk factors (diabetes, tobacco use) will take cardiac workup for her chest discomfort. Will give breathing treatments and Toradol for her symptoms per her request. Patient normal kidney function last night. Anticipate if workup is negative can be discharged home. Differential includes is not limited to psychosomatic pain, malingering, ACS, uncontrolled diabetes mellitus, neuropathy pain, electrolyte abnormality, pneumothorax, pneumonia. Workup is normal. Patient is mildly hyperglycemic with a glucose of 318 however she does not have laboratory findings concerning for DKA or HHNK. Chest x-ray viewed by myself as well as radiology does not show any acute process. Patient is medically cleared to be discharged from the ER. She does request to speak with social work. They will try to get her to an outpatient detox facility. Patient is amenable to this. After discussion with case management patient now admits to being suicidal. She states she tried to jump off a bridge yesterday but did not tell anyone. Rupert slip is filed and suicide precautions started. Patient ultimately is accepted at [facility] by Dr. Wilcox Lab Data Attestation: I reviewed the patient's lab results. Labs: Laboratory Results - last 24 hr 09/01/24 09/01/24 09/01/24 08:27 11:10 12:27 WBC 4.3 L RBC 4.80 Hgb 13.6 Hct 39.7 MCV 82.7 MCH 28.3 MCHC 34.3 RDW Std Deviation 39.3 RDW Coeff of Cele 13.1 Plt Count 186 MPV 9.8 Immature Gran % (Auto) 0.500 Neut % (Auto) 62.1 Lymph % (Auto) 22.1 Cotton % (Auto) 11.3 H Eos % (Auto) 3.5 Baso % (Auto) 0.5 Absolute Neuts (auto) 2.7 Absolute Lymphs (auto) 0.96 Nucleated RBC % 0 Sodium 141 Potassium 3.5 Chloride 106 Carbon Dioxide 24.7 Anion Gap 10 BUN 7 Creatinine 0.50 L Estim Creat Clear Calc 117.09 Est GFR (MDRD) Non-Af 112 BUN/Creatinine Ratio 13.7 Glucose 318 H Calcium 8.8 Total Creatine Kinase 31 Troponin T High Sens < 6 Troponin T Hi Sens 2 Hr < 6 Troponin T Hi Sens 4Hr < 6 Urine Opiates Screen U Buprenorphine Qual Ur Oxycodone Screen Urine Methadone Screen Urine Fentanyl Screen Ur Barbiturates Screen Ur Phencyclidine Scrn Ur Amphetamines Screen U Benzodiazepines Scrn Urine Cocaine Screen U Cannabinoids Screen 09/01/24 14:10 WBC RBC Hgb Hct MCV MCH MCHC RDW Std Deviation RDW Coeff of Cele Plt Count MPV Immature Gran % (Auto) Neut % (Auto) Lymph % (Auto) Cotton % (Auto) Eos % (Auto) Baso % (Auto) Absolute Neuts (auto) Absolute Lymphs (auto) Nucleated RBC % Sodium Potassium Chloride Carbon Dioxide Anion Gap BUN Creatinine Estim Creat Clear Calc Est GFR (MDRD) Non-Af BUN/Creatinine Ratio Glucose Calcium Total Creatine Kinase Troponin T High Sens Troponin T Hi Sens 2 Hr Troponin T Hi Sens 4Hr Urine Opiates Screen NEGATIVE U Buprenorphine Qual NEGATIVE Ur Oxycodone Screen NEGATIVE Urine Methadone Screen NEGATIVE Urine Fentanyl Screen NEGATIVE Ur Barbiturates Screen NEGATIVE Ur Phencyclidine Scrn NEGATIVE Ur Amphetamines Screen PRESUMPTIVE POSITIVE U Benzodiazepines Scrn NEGATIVE Urine Cocaine Screen PRESUMPTIVE POSITIVE U Cannabinoids Screen NEGATIVE Radiography Chest X-Ray - ED: 2 View, Read by ED Physician, Read by Radiologist and No Acute Disease Diagnostic Testing: Clinical Impression(s) from Imaging Studies Chest X-Ray 09/01/24 08:27 IMPRESSION: No acute process is identified in the chest. Reading [facility] Rhythm Strip Rhythm Strip: Sinus Rhythm Rate: 70 Ectopy: None EKG Initial EKG: Attestation: I personally reviewed and interpreted this EKG as follows: Interpretation: Sinus Rhythm Comments: Normal sinus rhythm at a rate of 70 bpm Normal axis Normal intervals Normal ST segments Management Discussion w/another healthcare provider: prop worker/Case management Discharge Plan Triage Chief Complaint: Shortness of Breath ED Provider: Chetna Sorensen Dx/Rx/DC Orders Clinical Impression: Hyperglycemia, History of cocaine abuse, Insulin dependent diabetes mellitus, Weakness, History of fibromyalgia, Depression with suicidal ideation Prescriptions: No Action (DME) pen needle, diabetic 31 gauge x 1/4 needle See Rx Instructions .Route Qty: 100 0RF Rx Instructions: As directed cyclobenzaprine 10 mg tablet 10 mg PO TID PRN (Reason: muscle spasm) pregabalin [Lyrica] 50 mg capsule 50 mg PO BID insulin lispro 100 unit/mL insulin pen 1 sliding scale dose subcut ACHS Protocol: 5. Sliding Scale Insulin High Dosing Condition: 150-209 mg/dl = 3 units Condition: 210-259 mg/dl = 6 units Condition: 260-324 mg/dl = 9 units Condition: 325-374 mg/dl = 12 units Condition: 375-409 mg/dl = 14 units Condition: 410-449 mg/dl = 16 units Condition: Greater than 449 call physician Protocol Text: Suggested for: - Patients on Total Daily Insulin Dose of 81-120 units - Very insulin resistant patients HIGH DOSING ALGORITHM Patient Comments: PT TAKES 10 UNITS PLUS SLIDING SCALE DOSE. Rx Instructions: subcutaneously; insulin glargine [Lantus Solostar U-100 Insulin] 100 unit/mL (3 mL) insulin pen 40 unit subcut BIDCM (DME) blood-glucose meter Misc See Rx Instructions .Route Qty: 1 0RF Rx Instructions: As directed (DME) Autoject 2 Injection Device Insulin Pen See Rx Instructions .Route Qty: 1 0RF Rx Instructions: As directed doxepin 25 mg capsule 25 mg PO QHS 30 Days Qty: 30 0RF quetiapine 200 mg tablet 200 mg PO QHS 30 Days Qty: 30 0RF buspirone 10 MG tablet 10 mg PO TID 30 Days Qty: 90 0RF hydroxyzine pamoate [Vistaril] 25 mg capsule 50 mg PO TID 30 Days Qty: 180 0RF aripiprazole 5 mg tablet 5 mg PO DAILY 30 Days Qty: 30 0RF Primary Care Provider: Care Physician,No Primary Referrals: Care Physician,No Primary [Primary Care Provider] - Print Language: Greek Disposition Disposition: Psychiatric Hospital or Unit Discharge Location: [facility]
[2024-09-01] MEDS: Ketorolac 15 MG/ML Vial IV (08:33)
[2024-09-01] MEDS: Ipratropium/Albuterol Sulfate 3 ML AMPUL.NEB INHALATION (08:34)
--- NOTE | 2024-09-01 08:37 | EKG12_ITS ---
Test Reason : DYSP Blood Pressure : */* mmHG Vent. Rate : 70 BPM Atrial Rate : 70 BPM P-R Int : 156 ms QRS Dur : 90 ms QT Int : 404 ms P-R-T Axes : 51 6 2 degrees QTcB Int : 436 ms Normal sinus rhythm Cannot rule out Inferior infarct , age undetermined Abnormal ECG Confirmed by TOMMY BAUMANN, NICKOLAS ([id number]), editorial specialist SYLVESTER BURCH ([id number]) on 09/02/2024 10:30:19 AM Referred By: Confirmed By: NICKOLAS SANDERS MD
[2024-09-01 08:43] LABS: Absolute Lymphocyte Count 0.96 X10^3/uL (0.83-4.51); Absolute Neutrophil Count 2.7 X10^3/uL (2.0-7.7); Basophil# 0.02 X10^3/uL; Basophil% 0.5 % (0-1); Eosinophil# 0.15 X10^3/uL; Eosinophils% 3.5 % (0-5); Hematocrit 39.7 % (37-47); Hemoglobin 13.6 g/dL (12.0-15.0); Lymphocyte # 0.96 X10^3/ul (0.83-4.51); Lymphocyte % 22.1 % (19-41); Mean Corp Hgb Conc 34.3 g/dL (32-36); Mean Corpuscular Hgb 28.3 pg (27.0-32.0); Mean Corpuscular Volume 82.7 fL (81-99); Mean Platelet Vol. 9.8 fl (6.2-12.0); Monocyte# 0.49 X10^3/uL; Monocyte% 11.3 % (0-10); NRBC Flagged by Analyzer 0 % (0-5); Neutrophil % 62.1 % (47-70); Platelet Count 186 K/mm3 (150-450); RBC Distribution Width CV 13.1 % (11.6-14.6); RBC Distribution Width SD 39.3 fl (35.1-43.9); White Blood Count 4.3 K/mm3 (4.4-11.0)
[2024-09-01 09:34] LABS: Anion Gap 10 (5-15); BUN 7 mg/dL (4-19); BUN/Creat Ratio 13.7 RATIO (10-20); CPK Total, Creatine Kinase 31 U/L (24-195); Calcium,Total 8.8 mg/dL (7.6-11.0); Carbon Dioxide 24.7 mmol/L (21.0-32.0); Chloride 106 mmol/L (98-108); EST Glomerular Filtration Rate 112 (>60); Estimated Creatinine Clearance 117.09 ml/min (50-250); Glucose 318 mg/dL (70-99); Potassium 3.5 mmol/L (3.3-5.1); Sodium Level 141 mmol/L (133-145); Troponin T High Sensitivity < 6 ng/L (<=14)
[2024-09-01 11:37] LABS: Troponin T High Sens 2 HR < 6 ng/L (<=14)
[2024-09-01 13:04] LABS: Troponin T High Sens 4 HR < 6 ng/L (<=14)
--- NOTE | 2024-09-01 13:17 | CM.ED ---
Social work When this SW arrived for the start of the shift, Jonathan MALCOLM approached this SW and stated patient had requested SW visit to help with placement in a rehab facility. Reportedly, Sharonda LEON had helped yesterday evening (08/31) when patient had also presented to [facility] ED. SW entered patient's room, introducing self and role at [facility]. Patient welcomed SW visit and stated needing help with getting to a rehab facility because Sharonda LEON was helping patient last evening. SW asked questions to get information; all patient information was what Sharonda LEON documented. Patient stated being willing to go anywhere in order to leave the local area that is reportedly a challenge for patient's mental and physical health. Per Sharonda LEON's note, patient attempted calling [facility] [place] with the number Sharonda LEON left for patient last evening (ph: [phone]). In patient's room, the call kept dropping and this SW had to leave a voicemail once back in SW office. This SW called [facility] (ph: [phone]) to clarify the process from an ED. [facility] admissions stated simply needing patient's facesheet, medication list, and medical clearance information. SW confirmed that [facility] could provide transportation if patient was accepted and this was confirmed. Patient information faxed (f: [phone]). Romina MALCOLM and patient updated. Brionna Delaney, LINING SETTER, SHOP LABORER
--- NOTE | 2024-09-01 13:37 | CM.ED ---
Social work [facility] was called by this SW (ph: [phone]) who stated this was an all-male facility. This SW asked if things had changed as SW brochures did not state this. Elis from [facility] took the phone and stated the female side of the facility will be opening in 60 days. This SW called Nicole at [facility] (ph: [phone]) who stated not accepting Medicare A B, but Nicole stated ability to make some calls to discover what other facilities in the area would. Brionna Delaney, VENEER TRIMMER, ASSEMBLY MECHANIC
--- NOTE | 2024-09-01 14:57 | CM.ED ---
Social work When SW went into patient's room to update patient, patient asked if patient was able to share something with SW. Patient stated feeling suicidal and attempting suicide yesterday via jumping off a bridge due to being so depressed. SW asked why patient did not share this information last evening when patient presented to the [facility] ED and patient stated not wanting to go somewhere for mental health last night and wanting to keep my thoughts inside. SW mental health assessment completed and SW spoke with Dr. Sorensen who agreed with need for placement. Plan: placement at a dual diagnosis facility, pending acceptance. Brionna Delaney, PLANNER INTERNSHIP, FAN BLADE TRUER
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
[2024-09-01 15:16] LABS: Amphetamine Urine PRESUMPTIVE POSITIVE (<1000 ng/mL); Barbiturate Urine NEGATIVE (< 200 ng/mL); Benzodiazepine Urine NEGATIVE (< 200 ng/mL); Buprenorphine Urine NEGATIVE (< 200 ng/mL); Cocaine Urine PRESUMPTIVE POSITIVE (< 300 ng/mL); Fentanyl, Urine NEGATIVE; Methadone Urine NEGATIVE (< 300 ng/mL); Opiates Urine NEGATIVE (< 300 ng/mL); Oxycodone, Urine NEGATIVE (< 100 ng/mL); PCP Urine NEGATIVE (< 25 ng/mL); THC Urine NEGATIVE (< 50 ng/mL)
--- NOTE | 2024-09-01 15:39 | CM.ED ---
Social work Called [facility] (ph: ) and spoke with Shauna. Shauna was able to immediately accept and provide accepting information. Referral faxed (f: ). [facility] Wilcox N2N: [phone] Nursing, doctor, and patient all updated. Plan: [facility], pending transport. Brionna Delaney, CANDY POLISHER, GERONTOLOGICAL NURSE PRACTITIONER
[2024-09-01] MEDS: Insulin Lispro 100 UNIT/ML INSULN.PEN SC (16:10)
[2024-09-01 16:21] LABS: Bedside Glucose 365 mg/dL (74-106)
--- NOTE | 2024-09-01 16:45 | ED.RN ---
Report called to Riya at [facility].
[2024-09-01 16:53] LABS: Bedside Glucose 354 mg/dL (74-106)
== END 2024-09-01 19:41 ==
PROVIDERS: Emergency Provider Emergency Medicine; Visit Provider Emergency Medicine
DX: E11.65 Type 2 diabetes mellitus with hyperglycemia (principal); J44.9 Chronic obstructive pulmonary disease, unspecified; E11.40 Type 2 diabetes mellitus with diabetic neuropathy, unspecified; Z79.4 Long term (current) use of insulin; I10 Essential (primary) hypertension; F17.210 Nicotine dependence, cigarettes, uncomplicated; Z59.00 Homelessness unspecified; K21.9 Gastro-esophageal reflux disease without esophagitis; R07.9 Chest pain, unspecified; F41.9 Anxiety disorder, unspecified; Z87.898 Personal history of other specified conditions; M79.7 Fibromyalgia; R53.1 Weakness; F32.A Depression, unspecified; R45.851 Suicidal ideations
CPT/HCPCS: 71046; 80048; 80307; 82550; 82962; 84484; 85025; 93005; 94640; 96374; 99285; A4216

== ENCOUNTER 2024-10-01 20:48 | Emergency (ER) | payer MEDICARE, MEDICAID, SELFPAY ==
[2024-10-01 20:48] VITALS: BP 128/105; PULSE 110; RESP 16; TEMP 36.6; O2SAT 98; BMI 24.2
--- OUTSIDE RECORDS SUMMARY | 2024-10-01 21:50 | XMS RPT_ITS | CCD ---
Author Organization [facility] [place] N[facility] Care Team Providers Care Wrist Hemmer Name Role Phone PHYSICIAN, NOT RECORDED Primary Care Physician U GUILLERMINA Gar MD Attending Unavailable PHYSICIAN, NOT RECORDED Primary Care Unavaila ble Pcp COMMUNITY ARTS WORKER, No Primary Care Provider UnavailGUILLERMINA Avalos MD Attending Unavailable PHYSICIAN, NOT RECORDED Primary Care Unavaila ble Unavailable Primary Care Provider Unavailabl ELOISE Patiño Attending Unavailable Pcp COMMUNITY ARTS WORKER, No Primary Care Provider Unavailabl e Unavailable Primary Care Provider Unavailabl e No Family, Physician Primary Care Unavailable NORM JONES Referring Unavailable MILLIE EVANS Referring Unavailabl e No Family, Physician Primary Care Unavailable No Family, Physician Primary Care Unavailable XIOMY FAJARDO DO Referring Unavailable No Family, Physician Primary Care Unavailable MILLIE EVANS Attending Unavailabl e No Family, Physician Primary Care Unavailable MICHELE DE SANTIAGO Attending Unavailable No Family, Physician Primary Care Unavailable No Family, Physician Primary Care Unavailable MILLIE EVANS Attending Unavailabl e Pcp COMMUNITY ARTS WORKER, No Primary Care Provider Unavailabl e Satish [facility], Taylor A Unavailable Unavaila ble GALILEA SERRA Admitting Unavailable TRA PEREZ Attending Unavailable JOSE MIGUEL MARCUM Referring Unavailable Lidya BAUMANN, Dr. Geiger Primary Care Provider [phone] Dr. Yonas Mccullough DO Referring Provider Dr. Yonas Mccullough DO Emergency Provider Dr. Vicente Mao DO Admit Provider Unavail able Dr. Vicente Mao DO Other Provider Unavail able Francesca BAUMANN, Dr. Farhad Armenta Attending Provider Francesca BAUMANN, Dr. Farhad Armenta Other Provider Dr. Teri Franklin MD Attending Provider Unavaila ble Provider, Ed Physician Attending Provider Unavai lable Provider, Ed Physician Emergency Provider Unavai lable Care Physician, No Primary Primary Care Provider Unavailable Nadine BAUMANN, Albert Attending Provider [phone] Albert Mccoy MD Emergency Provider [phone] Lisa LAURENT, Dr. Yanez Emergency Provider Dr. Fely Bose MD Primary Care Provider [place] BAUMANN, Dr. Sullivan Emergency Provider Dr. Chetna Sorensen DO Emergency Provider [email or web address] Primary Care Unavailable Provider, Ed Physician Attending Unavailab le GUTIERREZ1 Primary Care Unavailable China Kumar Attending Unavailable Сергей Simeon Consulting Unavailable [email or web address] Primary Care Unavailable Ismael Paula Admitting Unavailable Ismael Paula Attending Unavailable Sisi Gasca Attending Unavailable Vicente Mao Consulting Unavailable [email or web address] Primary Care Unavailable Vicente Mao Admitting Unavailable Geno Ernst Consulting Unavailable Lidya, Fely Primary Care Unavailable Teri Dias Attending Unavailable Lidya, Fely Primary Care Unavailable Farhad Ma Attending Unavailable Vicente Mao Admitting Unavailable Vicente Mao Consulting Unavailable Yonas Mccullough Referring Unavailable Farhad Ma Consulting Unavailable Сергей Simeon Consulting Unavailable [email or web address] Primary Care Unavailable Charleen Badillo Attending UnavailIsmael Arroyo Admitting Unavailable Ismael Paula Consulting Unavailable Lidya, Fely Primary Care Unavailable Farhad Ma Attending Unavailable Vicente Mao Consulting Unavailable Vicente Mao Admitting Unavailable Sudhir Simpson Consulting Unavailable Dao Gagnon Consulting Unavailable Millie Barriga Consulting Unavailable Ingrid Brooks Consulting Unavailable Farhad Ma Consulting Unavailable [email or web address] Primary Care Unavailable Ismael Paula Admitting Unavailable Ismael Paula Consulting Unavailable Ismael Paula Attending Unavailable Vicente Mao Attending Unavailable Vicente Mao Consulting Unavailable Vicente Mao Admitting Unavailable [email or web address] Primary Care Unavailable Sisi Gasca Consulting Unavailable Lidya, Fely Primary Care Unavailable Vicente Mao Referring Unavailable Alec Casas Attending Unavailable [email or web address] Primary Care Unavailable Dao Gagnon Attending Unavailable Lidya, Fely Primary Care Unavailable Farhad Ma Attending Unavailable Vicente Mao Consulting Unavailable Vicente Mao Admitting Unavailable Sudhir Simpson Consulting Unavailable Dao Gagnon Consulting Unavailable Millie Barriga Consulting Unavailable Ingrid Brooks Consulting Unavailable Lidya, Fely Attending Unavailable [place], Fely Primary Care Unavailable [place], Fely Primary Care Unavailable Kandace Arias Attending Unavailable Herminia Rojas Consulting Unavailable Herminia Rojas Admitting Unavailable Manuel Burton Consulting Unavailable Noé Burks Consulting Unavailable Richard Shankar Consulting Unavailable Adolfo Blanchard Consulting Unavailable Vicente Cui Consulting Unavailable David Brenner Consulting Unavailable Zack Gutierrez Consulting Unavailable Geraldine Jara Consulting Unavailab Jose Keene Consulting Unavailable Jordy Workman Consulting Unavailable Chavo Mohr Consulting Unavailable Ivon Dominguez Consulting Unavailable Thi Dawson Consulting Unavailable James Lopez Consulting Unavailable Danie Franco Consulting Unavailable Gil Narayan Consulting Unavailable Sabina Delgadokhdeep Consulting Unavailable Eleanor Pereira Consulting Unavailable Liliana Morgan Consulting Unavailable Chris Palm Consulting Unavailable Richard Toscano Consulting Unavailable Oc Cameron Consulting Unavailable Kandace Arias Consulting Unavailable Farhad Ma Referring Unavailable Adolfo Blanchard Attending Unavailable Vitor Leija Attending Unavailable Chetna Sorensen Attending Unavailable Care Physician, No Primary Primary Care Unava ilable Lidya, Fely Primary Care Unavailable Provider, Ed Physician Attending Unavailab le [place], Fely Primary Care Unavailable Teri Dias Attending Unavailable [place], Fely Primary Care Unavailable Farhad Ma Attending Unavailable Vicente Mao Admitting Unavailable Vicente Mao Consulting Unavailable Yonas Mccullough Referring Unavailable Care Physician, No Primary Primary Care Unava ilable Albert Mccoy Attending Unavailable Kandace Arias Referring Unavailable Herminia Rojas Attending Unavailable Ismael Paula Attending Unavailable Farhad Ma Consulting Unavailable Farhad Ma Attending Unavailable Lidya, Fely Primary Care Unavailable Charleen Badillo Attending [facility] Care Physician, No Primary Primary Care Unava ilable Beau Gonzalez Attending Unavailable Care Physician, No Primary Primary Care Unava ilable Nate Conrad Attending Unavailable [place], Fely Primary Care Unavailable Farhad Ma Attending Unavailable Herminia Rojas Admitting Unavailable Herminia Rojas Consulting Unavailable Kandace Arias Consulting Unavailable Provider, Ed Physician [facility] Primary Care Unavailable [email or web address] Primary Care Unavailable Joe Davidson Attending Unavailable Vicente Mao Attending Unavailable Сергей Simeon Attending Unavailable Ismael Paula Referring Unavailable Sisi Gasca Attending Unavailable Geno Ernst Consulting Unavailable Lidya, Fely Primary Care Unavailable Sudhir Simpson Referring Unavailable Joe Burrell Attending Unavailable [email or web address] Primary Care Unavailable Pierce Singleton Attending Unavailable Allergies Allergy Classification Reported Allergen(s) Allergy Type Date of Onset Reaction(s) Facility (15 sources) Aspirin; Translations: [aspirin] Drug Allergy 09-26-19 17 Unknown, Other [facility] (11 sources) Pseudoephedrine; Translations: [PSEUDOEPHEDRINE HCL] Drug Allergy 11-19-19 07 Other [facility] (1 source) Acetaminophen / oxyCODONE; Translations: [acetaminophen-ox ycodone] Drug Allergy [facility] (1 source) Acetaminophen / Pseudoephedrine; Translations: [acetaminophen-ps eudoephedrine] Drug Allergy itching [facility] (6 sources) buPROPion; Translations: [BUPROPION] Drug Allergy 10-18-19 11 Other: See Comments [facility] Work Phone: (6 sources) HYDROmorphone; Translations: [HYDROMORPHONE (BULK)] Drug Allergy 10-30-19 13 Mental Status Change [facility] (6 sources) metFORMIN; Translations: [METFORMIN] Drug Allergy 11-18-19 19 Unknown [facility] (6 sources) Salicylate product; Translations: [SALICYLATES] Propensity to adverse reactions 12-30-19 05 [facility] (1 source) Acetaminophen / oxyCODONE; Translations: [OXYCODONE-ACETAM INOPHEN] Drug Allergy 10-30-[address] [facility] (1 source) oxyCODONE; Translations: [OXYCODONE] Drug Allergy 05-04-[address] [facility] (9 sources) HYDROmorphone; Translations: [HYDROMORPHONE] Drug Allergy 03-13-20 24 Unknown, Other (See Comments) [facility] Work Phone: (2 sources) Aluminum aspirin Drug Allergy 01-22-20 24 [facility] (1 source) Aspirin Drug Allergy 09-02-19 [facility] (1 source) HYDROmorphone Drug Allergy 09-02-19 [facility] Medications Current Medications Medication Drug Class(es) Dates Sig (Normalized) Sig (Original) amoxicillin 875 mg / clavulanate 125 mg oral tablet (4 sources) Penicillin-class Antibacterial Start: 03-13-2024 End: 03-20-2024 take 1 tablet by mouth twice daily amoxicillin-pot clavulanate (Augmentin) 875-125 mg tablet Indications: Acute maxillary sinusitis, recurrence not specified Take 1 tablet by mouth 2 times a day for 7 days. 14 tablet 03/13/2024 03/20/2024 Active Start: 02-29-2024 End: 04-23-2024 Amoxicillin-Pot Clavulanate 250-125 mg tablet Discontinued 1 {tbl} PO TWICE A DAY February 29, 2024 1:00am April 23, 2024 1:21pm ARIPiprazole 5 mg oral tablet (7 sources) Atypical Antipsychotic Start: 02-08-2024 End: 02-29-2024 take 1 tablet by mouth once daily Aripiprazole 5 mg tablet Active 5 mg PO DAILY 30 February 29, 2024 11:23am benztropine mesylate 1 mg oral tablet (1 source) Anticholinergic, Antihistamine take 1 tablet by mouth every six hours as needed benztropine (Cogentin) 1 mg tablet Take 1 tablet (1 mg) by mouth every 6 hours if needed for tremors. Active Blood-Glucose Meter (1 source) Start: 12-27-2023 End: 01-26-2024 Blood-Glucose Meter Use to test four times a day. 1 Each 12/27/2023 01/26/2024 Active Blood-Glucose Meter misc (3 sources) Start: 08-29-2024 Blood-Glucose Meter misc Active 0 .Route 1 August 29, 2024 12:00am As directed brompheniramine maleate 0.4 mg/ml / dextromethorphan hydrobromide 2 mg/ml / pseudoephedrine hydrochloride 6 mg/ml oral solution (1 source) alpha-Adrenergic Agonist, Uncompetitive U-hdjlgc-L-aspartat e Receptor Antagonist, Sigma-1 Agonist Start: 03-13-2024 take 5 mL by mouth every four hours for cough brompheniramine-p seudoeph-DM (Bromfed DM) 2-30-10 mg/5 mL syrup Indications: Acute maxillary sinusitis, recurrence not specified Take 5 mL by mouth every 4 hours if needed for allergies, congestion or cough. 120 mL 03/13/2024 Active busPIRone hydrochloride 10 mg oral tablet (11 sources) Start: 07-19-2013 End: 02-29-2024 take 1 tablet by mouth three times daily Buspirone 10 MG tablet Active 10 mg PO THREE TIMES A DAY 90 30 February 29, 2024 11:23am busPIRone HCl (B USPAR PO) Take by mouth Active citalopram 20 mg oral tablet (1 source) Serotonin Reuptake Inhibitor Start: 02-02-2012 Celexa 20 mg oral tablet Dose : 20 mg = 1 tab(s), Oral, Daily, # 90 tab(s), 0 Refill(s) Start Date: 02/02/12 Status: Ordered cyclobenzaprine hydrochloride 10 mg oral tablet (11 sources) Muscle Relaxant Start: 08-29-2024 take 1 tablet by mouth three times daily as needed for muscle spasms Cyclobenzaprine 10 mg tablet Active 10 mg PO THREE TIMES A DAY as needed for muscle spasm August 29, 2024 12:00am Start: 02-20-2024 End: 08-29-2024 take 5 mg by mouth three times daily as needed for muscle spasms cyclobenzaprine Discontinued 5 mg PO 3 TIMES DAILY NEEDED as needed for MUSCLE SPASMS February 20, 2024 1:00am August 29, 2024 1:49pm take 1 tablet by marcial th once daily at bedtime cyclobenzaprine (FLEXERIL) 10 mg tablet Take 10 mg by mouth daily at bedtime. Active doxepin hydrochloride 25 mg oral capsule (7 sources) Tricyclic Antidepressant Start: 02-08-2024 End: 02-29-2024 take 1 capsule by mouth at bedtime Doxepin 25 mg capsule Active 25 mg PO AT BEDTIME 30 February 29, 2024 11:23am haloperidol 5 mg oral tablet (1 source) Typical Antipsychotic take 1 tablet by mouth every six hours as needed haloperidol (Haldol) 5 mg tablet Take 1 tablet (5 mg) by mouth every 6 hours if needed for agitation (AGGRESSION OR PSYCHOSIS). Active hydrOXYzine hydrochloride 50 mg oral tablet (14 sources) Antihistamine Start: 07-14-2024 take 1 tablet by mouth once daily hydrOXYzine HCL (Atarax) 50 mg tablet Indications: Bipolar affective disorder, remission status unspecified (Multi) Take 1 tablet (50 mg) by mouth once daily. 30 tablet 07/14/2024 Active Start: 02-08-2024 End: 02-29-2024 Hydroxyzine Pamoate (Vistari l) 25 mg capsule Active 50 mg PO THREE TIMES A DAY February 29, 2024 11:23am Start: 02-08-2024 End: 02-20-2024 take 1 capsule by mouth three times daily Hydroxyzine Pamoate 50 mg capsule Discontinued 50 mg PO THREE TIMES A DAY February 08, 2024 12:00am February 20, 2024 11:47pm Start: 12-20-2023 End: 01-26-2024 take 1 capsule by mouth three times daily hydrOXYzine pamoate (VISTARIL) 50 mg capsule Take 1 capsule by mouth three times a day. 90 capsule 12/27/2023 01/26/2024 Active hydrOXYzine Pamo ate (VISTARIL PO) Take by mouth Active ibuprofen 600 mg oral tablet (1 source) Nonsteroidal Anti-inflammatory Drug Start: 01-29-2024 ibuprofen 600 mg tablet 01/29/2024 Active Insulin Admin Supplies (Autoject 2 Injection Device) insulin pen (3 sources) Start: 08-29-2024 Insulin Admin Supplies (Autoject 2 Injection Device) insulin pen Active 0 .Route 1 August 29, 2024 12:00am As directed 3 ml insulin glargine 100 unt/ml pen injector (18 sources) Insulin Analog Start: 08-29-2024 Insulin Glargi ne (Lantus Solostar U-100 Insulin) 100 unit/mL (3 mL) insulin pen Active 40 U SC TWICE DAILY WITH MEALS August 29, 2024 12:00am Start: 07-10-2024 inject 30 [IU] by davis bcutaneous injection once daily at bedtime insulin glargine (Lantus) 100 unit/mL injection Indications: Type 2 diabetes mellitus with hyperglycemia, without long-term current use of insulin Inject 30 Units under the skin once daily at bedtime. Take as directed per insulin instructions. 9 mL 07/10/2024 Active Start: 02-29-2024 Lantus Solosta r U-100 Insulin 100 unit/mL (3 mL) pen 02/29/2024 Active Start: 02-29-2024 End: 08-29-2024 Insulin Glargine (Lantus Carrie ostar U-100 Insulin) 100 unit/mL (3 mL) insulin pen Discontinued 35 U SC TWICE DAILY WITH MEALS February 29, 2024 11:23am August 29, 2024 1:54pm Start: 02-29-2024 End: 02-29-2024 Insulin Glargine (Lantus Carrie ostar U-100 Insulin) 100 unit/mL (3 mL) insulin pen Discontinued 40 U SC DAILY February 29, 2024 9:50am February 29, 2024 11:23am Start: 02-08-2024 End: 02-29-2024 Insulin Glargine (Lantus Carrie ostar U-100 Insulin) 100 unit/mL (3 mL) insulin pen Discontinued 25 U SC DAILY February 08, 2024 12:00am February 29, 2024 9:51am Start: 12-27-2023 End: 02-25-2024 inject 25 [IU] by subcutaneous injection once daily in the morning insulin glargine 100 unit/mL (3 mL) Inject 25 Units subcutaneously every morning. 15 mL 12/27/2023 Active insulin glargine (LANTUS) 100 UNIT/ML injection vial Inject 35 Units into the skin nightly Active insulin glargine (LANTUS) 100 UNIT/ML injection vial Inject 25 Units into the skin nightly Active 3 ml insulin lispro 100 unt/ml pen injector (14 sources) Insulin Analog Start: 07-10-2024 inject 10 [IU] by subcutaneous injection three times daily before mealtime insulin lispro 100 unit/mL injection Indications: Type 2 diabetes mellitus with hyperglycemia, without long-term current use of insulin Inject 10 Units under the skin 3 times a day before meals. Take as directed per insulin instructions. 9 mL 07/10/2024 Active Start: 12-27-2023 End: 08-29-2024 inject 1 dose by subcutaneous injection at bedtime Insulin Lispro 100 unit/mL insulin pen Discontinued 0 sliding scale dose SC BEFORE MEALS AND AT BEDTIME February 29, 2024 11:23am August 29, 2024 1:54pm subcutaneously; Please contact the information source for Protocol details. insulin lispro 25 unt/ml / insulin lispro protamine, human 75 unt/ml injectable suspension (2 sources) Insulin Analog insulin lispro protamine & lispro (HUMALOG MIX) (75-25) 100 UNIT per ML SUSP injection vial Inject into the skin 3 times daily (before meals) Sliding scale Active isopropyl alcohol 0.7 ml/ml medicated pad (5 sources) Start: 12-27-19 alcohol swabs (ALCOHOL PADS) Use to test four times a day. 200 Each 4 12/27/2023 1:35 PM EDT 12/27/2023 Active pantoprazole 40 mg delayed release oral tablet (2 sources) Proton Pump Inhibitor Start: 12-27-19 End: 01-26-20 take 1 tablet by mouth once daily pantoprazole DR (PROTONIX) 40 mg tablet Take 1 tablet by mouth once daily. 30 tablet 12/27/2023 Active pregabalin 50 mg oral capsule (3 sources) Start: 08-30-19 take 1 capsule by mouth twice daily Pregabalin (Lyrica) 50 mg capsule Active 50 mg PO TWICE A DAY August 29, 2024 12:00am QUEtiapine 200 mg oral tablet (20 sources) Atypical Antipsychotic Start: 07-11-19 take 0.5 tablet by mouth once daily at bedtime QUEtiapine (SEROquel) 200 mg tablet Indications: Bipolar affective disorder, remission status unspecified (Multi) Take 0.5 tablets (100 mg) by mouth once daily at bedtime. 07/10/2024 Active Start: 02-08-2024 End: 02-29-2024 take 1 tablet by mouth at bedtime Quetiapine 200 mg tablet Active 200 mg PO AT BEDTIME February 29, 2024 11:23am Start: 02-08-2024 End: 08-29-2024 take 1 tablet by mouth once daily Quetiapine (Seroquel) 100 mg tablet Discontinued 100 mg PO DAILY April 29, 2024 1:00am August 29, 2024 1:52pm Start: 12-27-2023 End: 01-26-2024 take 1 tablet by mouth once daily at bedtime QUEtiapine XR (SEROQUEL XR) 150 mg Tb24 Take 1 tablet by mouth daily at bedtime. 30 tablet 12/27/2023 Active Start: 07-19-2013 End: 11-11-2023 take 2 tablets by mouth once daily Quetiapine (Seroquel) 300 MG tablet Discontinued 600 mg PO DAILY July 19, 2013 12:00am November 11, 2023 8:46am On Hold: pt homeless Start: 01-28-2013 End: 05-25-2013 take 1 tablet by mouth twice daily Quetiapine (Seroquel) 300 MG tablet Discontinued 300 mg PO TWICE A DAY January 28, 2013 12:00am May 25, 2013 6:37am Start: 02-02-2012 take 1 tablet by marcial th once daily at bedtime Seroquel 50 mg oral tablet 1 tab(s), Oral, qHS, # 30 tab(s), 0 Refill(s) Start Date: 02/02/12 Status: Ordered QUEtiapine Fumar ate (SEROQUEL PO) Take by mouth Active venlafaxine 75 mg oral tablet (1 source) Serotonin and Norepinephrine Reuptake Inhibitor take 1 tablet by mouth once daily venlafaxine (Effexor) 75 mg tablet Take 1 tablet (75 mg) by mouth once daily. Active Completed/Discontinued Medications Medication Drug Class(es) Dates Sig (Normalized) Sig (Original) acetaminophen 325 mg / HYDROcodone bitartrate 5 mg oral tablet (4 sources) Opioid Agonist Start: 08-05-2023 End: 11-11-2023 Hydrocodone-Acetami nophen 5-325 mg tablet Discontinued 1 {tbl} PO EVERY 4 HOURS NEEDED as needed for Pain 15 August 05, 2023 November 11, 2023 8:46am On Hold: pt homeless Start: 08-05-2023 take 1 tablet by marcial th every four hours as needed Hydrocodone-Acetaminophen Active 1 TABLE T PO EVERY 4 HOURS NEEDED 15 August 05, 2023 acetaminophen 325 mg / oxyCODONE hydrochloride 5 mg oral tablet (4 sources) Opioid Agonist Start: 01-28-2013 End: 05-25-2013 Oxycodone-Acetaminophen 1 TABLET tablet Discontinued 1 - 2 {tbl} PO EVERY 4 HOURS NEEDED as needed for Pain January 28, 2013 12:00am May 25, 2013 6:37am Start: 01-28-2013 End: 05-25-2013 take 1 tablet by mouth every four hours as needed Oxycodone-Acetaminophen Discontinued 1 - 2 TABLET PO EVERY 4 HOURS NEEDED January 28, 2013 12:00am May 25, 2013 6:37am cefdinir 300 mg oral capsule (5 sources) Cephalosporin Antibacterial Start: 04-29-2024 End: 08-29-2024 take 1 capsule by mouth twice daily Cefdinir 300 mg capsule Discontinued 300 mg PO TWICE A DAY April 29, 2024 1:00am August 29, 2024 1:48pm Start: 03-24-2024 End: 03-24-2024 take 1 dose by mouth once 300 mg, Oral, ONCE, 1 dose, On Sat03/24/24 at 2215, Antimicrobial Indications: Urinary Tract Infection Start: 03-24-2024 End: 03-31-2024 take 1 capsule by mouth twice daily cefdinir (OMNICEF) 300 MG capsule Take 1 capsule by mouth 2 times daily for 7 days 14 capsule 03/24/2024 03/31/2024 Active cephalexin 500 mg oral capsule (3 sources) Cephalosporin Antibacterial Start: 11-04-2023 End: 11-17-2023 take 1 capsule by mouth every six hours Cephalexin 500 mg capsule Discontinued 500 mg PO EVERY 6 HOURS November 04, 2023 12:00am November 17, 2023 5:37am docusate sodium 100 mg oral capsule (4 sources) Start: 10-30-2013 End: 11-11-2023 take 1 capsule by mouth twice daily Docusate Sodium (Colace) 100 MG capsule Discontinued 100 mg PO TWICE A DAY October 30, 2013 12:00am November 11, 2023 8:47am On Hold: pt homeless doxycycline monohydrate 100 mg oral capsule (3 sources) Tetracycline-class Drug Start: 02-29-2024 End: 04-23-2024 take 1 capsule by mouth twice daily Doxycycline Monohydrate 100 mg capsule Discontinued 100 mg PO TWICE A DAY February 29, 2024 1:00am April 23, 2024 1:21pm escitalopram 20 mg oral tablet (4 sources) Serotonin Reuptake Inhibitor Start: 01-28-2013 End: 11-11-2023 take 1 tablet by mouth once daily Escitalopram Oxalate (Lexapro) 20 MG tablet Discontinued 20 mg PO DAILY January 28, 2013 12:00am November 11, 2023 8:47am On Hold: pt homeless fluconazole 100 mg oral tablet (1 source) Azole Antifungal Start: 04-10-2024 End: 04-10-2024 take 1 dose by mouth once 200 mg, Oral, ONCE, 1 dose, On Sat04/10/24 at 1800, Antimicrobial Indications: Skin and Soft Tissue Infection gabapentin 300 mg oral capsule (4 sources) Anti-epileptic Agent Start: 04-23-2024 End: 08-29-2024 take 1 capsule by mouth three times daily Gabapentin 300 mg capsule Discontinued 300 mg PO THREE TIMES A DAY April 23, 2024 1:00am August 29, 2024 1:50pm insulin, regular, human 100 unt/ml injectable solution (1 source) Insulin Start: 03-24-2024 End: 03-24-2024 inject 1 dose by subcutaneous injection once 10 Units, SubCUTAneous, ONCE, 1 dose, On Sat03/24/24 at 2200 1 ml ketorolac tromethamine 30 mg/ml cartridge (1 source) Nonsteroidal Anti-inflammatory Drug, Cyclooxygenase Inhibitor Start: 03-24-2024 End: 03-24-2024 15 mg, IntraVENous, ONCE, 1 dose, On Sat03/24/24 at 2200, Patient tolerates. lamoTRIgine 25 mg oral tablet (11 sources) Mood Stabilizer, Anti-epileptic Agent Start: 02-08-2024 End: 04-23-2024 take 1 tablet by mouth once daily Lamotrigine 25 mg tablet Discontinued 25 mg PO DAILY February 29, 2024 11:23am April 23, 2024 1:21pm Start: 12-27-2023 End: 01-26-2024 lamoTRIgine (LaMICtal) 25 mg tablet 02/29/2024 Active lamoTRIgine (MERRITT ICTAL PO) Take by mouth Active linaclotide 0.072 mg oral capsule (7 sources) Guanylate Cyclase-C Agonist Start: 02-09-2024 End: 08-29-2024 take 1 capsule by mouth once daily Linaclotide (Linzess) 72 mcg capsule Discontinued 72 ug PO DAILY February 29, 2024 11:23am August 29, 2024 1:51pm methocarbamol 750 mg oral tablet (4 sources) Muscle Relaxant Start: 01-29-2024 End: 04-23-2024 take 1 tablet by mouth every six hours as needed Methocarbamol 750 mg tablet Discontinued 750 mg PO EVERY 6 HOURS NEEDED as needed for muscle relaxer February 08, 2024 12:00am April 23, 2024 1:21pm omeprazole 40 mg delayed release oral capsule (7 sources) Proton Pump Inhibitor Start: 02-08-2024 End: 04-23-2024 take 1 capsule by mouth once daily Omeprazole 40 mg capsule,delayed release(DR/EC) Discontinued 40 mg PO DAILY February 29, 2024 11:23am April 23, 2024 1:21pm oxyCODONE hydrochloride 5 mg oral tablet (6 sources) Opioid Agonist Start: 05-01-2024 End: 08-29-2024 take 1 tablet by mouth every four hours as needed for pain Oxycodone 5 mg Tablet Discontinued 5 mg PO EVERY 4 HOURS NEEDED as needed for Pain Score 4-10 10 May 01, 2024 August 29, 2024 1:51pm Start: 02-29-2024 End: 04-23-2024 take 1 tablet by mouth every six hours as needed for pain Oxycodone 5 mg Tablet Discontinued 5 mg PO EVERY 6 HOURS NEEDED as needed for pain 4-10 10 February 29, 2024 April 23, 2024 1:21pm phenazopyridine hydrochloride 200 mg oral tablet (4 sources) Start: 01-30-2013 End: 05-25-2013 take 1 tablet by mouth three times daily Phenazopyridine 200 MG tablet Discontinued 200 mg PO THREE TIMES A DAY January 30, 2013 12:00am May 25, 2013 6:37am 50 ml sodium chloride 9 mg/ml injection (2 sources) Start: 04-10-2024 End: 04-10-2024 1,000 mL, IntraVENous, at 1,000 mL/hr, Administer over 1 Hours, ONCE, On Sat04/10/24 at 1430, For 1 dose, May administer over 30 minutes if well tolerated. Start: 03-24-2024 End: 03-24-2024 1,000 mL, IntraVENous, at 1, 935.5 mL/hr, Administer over 31 Minutes, ONCE, On Sat03/24/24 at 1900, For 1 dose sulfamethoxazole 800 mg / trimethoprim 160 mg oral tablet (10 sources) Dihydrofolate Reductase Inhibitor Antibacterial, Sulfonamide Antimicrobial Start: 11-17-2023 End: 02-08-2024 Sulfamethoxazole-Trimethopri m 800-160 mg tablet Discontinued 1 {tbl} PO TWICE A DAY 01 02November 17, 2023 7:20am February 08, 2024 5:58am Start: 11-17-2023 End: 11-17-2023 Sulfamethoxazole-Trimethopri m 800-160 mg tablet Discontinued {tbl} November 17, 2023 12:00am November 17, 2023 7:20am Start: 01-30-2013 End: 05-25-2013 Sulfamethoxazole-Trimethopri m 1 TABLET tablet Discontinued 1 {tbl} PO TWICE A DAY January 30, 2013 12:00am May 25, 2013 6:36am Start: 01-30-2013 End: 05-25-2013 take 1 tablet by mouth twice daily Sulfamethoxazole-Trimethoprim Discontinu ed 1 TABLET PO TWICE A DAY January 30, 2013 12:00am May 25, 2013 6:36am Problems Active Problems Problem Classification Problem Date Documented Date Episodic/Chronic Acute and unspecified renal failure (3 sources) Prerenal azotemia; Translations: [Unspecified kidney failure] 04-23-2024 Chronic Anal and rectal conditions (19 sources) Perirectal abscess; Translations: [Rectal abscess] Onset: 09-22-2012 04-10-2013 Episodic Bacterial infection; unspecified site (7 sources) Bacteremia; Translations: [Unspecified Escherichia coli [E. coli] as the cause of diseases classified elsewhere] Onset: 06-29-2024 Episodic Blindness and vision defects (3 sources) Reduced visual acuity; Translations: [Unspecified visual loss] 08-29-2024 Chronic Chronic ulcer of skin (10 sources) Non-pressure chronic ulcer of left heel and midfoot with unspecified severity; Translations: [Non-pressure chronic ulcer of unspecified heel and midfoot limited to breakdown of skin] Onset: 01-23-2024 Chronic Diabetes mellitus with complications (20 sources) Hyperglycemia due to diabetes mellitus; Translations: [Type 2 diabetes mellitus with hyperglycemia] Onset: 12-25-2023 12-25-2023 Chronic Diabetes mellitus without complication (17 sources) Type 2 diabetes mellitus; Translations: [Type 2 diabetes mellitus without complications] Onset: 08-22-2005 Resolved: 09-11-2007 04-10-2013 Chronic Diseases of white blood cells (5 sources) Leukocytosis; Translations: [Elevated white blood cell count, unspecified] Onset: 05-01-2024 04-29-2024 Chronic Disorders of lipid metabolism (5 sources) Hyperlipidemia; Translations: [Hyperlipidemia, unspecified] Onset: 08-03-2013 08-03-2013 Chronic Fever of unknown origin (3 sources) Fever; Translations: [Fever, unspecified] 04-23-2024 Episodic Fluid and electrolyte disorders (4 sources) Lactic acidosis; Translations: [Lactic acidosis] 04-29-2024 Episodic Malaise and fatigue (9 sources) Asthenia; Translations: [Weakness] Onset: 05-01-2024 04-29-2024 Episodic Mood disorders (20 sources) Recurrent major depressive episodes, moderate ; Translations: [Major depressive disorder, recurrent, moderate] Onset: 10-17-2010 04-10-2013 Chronic Mycoses (2 sources) Mycosis; Translations: [Candidiasis, unspecified] Onset: 04-10-2024 04-10-2024 Episodic Nutritional deficiencies (5 sources) Malnutrition (calorie); Translations: [Moderate protein-calorie malnutrition] Onset: 12-25-2023 12-25-2023 Chronic Nutritional deficiencies (2 sources) Wernicke's encephalopathy; Translations: [Wernicke's encephalopathy] Onset: 06-29-2024 Episodic Other aftercare (1 source) Patient encounter status; Translations: [Encounter for other specified aftercare] 03-13-2024 Episodic Other aftercare (2 sources) Removal of sutures done; Translations: [Encounter for removal of sutures] Onset: 03-13-2024 03-13-2024 Episodic Other aftercare (2 sources) Encounter for other specified aftercare; Translations: [Encounter for other specified aftercare] Onset: 03-13-2024 Episodic Other aftercare (1 source) Encounter for removal of sutures; Translations: [Encounter for removal of sutures] Onset: 03-13-2024 Episodic Other aftercare (3 sources) Wound ; Translations: [Encounter for other specified surgical aftercare] 11-29-2023 Episodic Other aftercare (3 sources) Wound finding; Translations: [Encounter for other specified aftercare] 11-25-2023 Episodic Other connective tissue disease (4 sources) H/O: back problem; Translations: [Personal history of other diseases of the musculoskeletal system and connective tissue] 04-10-2013 Episodic Other connective tissue disease (2 sources) H/O: musculoskeletal disease; Translations: [Personal history of other diseases of the musculoskeletal system and connective tissue] 08-31-2024 Episodic Other ear and sense organ disorders (5 sources) Bilateral sensory hearing loss; Translations: [Sensorineural hearing loss, bilateral] Onset: 07-07-2012 04-10-2021 Chronic Other endocrine disorders (5 sources) Adrenal mass; Translations: [Other specified disorders of adrenal gland] Onset: 12-22-2008 10-24-2023 Chronic Other fractures (4 sources) Fracture of left rib; Translations: [Fracture of one rib, left side, initial encounter for closed fracture] 08-05-2023 Episodic Other injuries and conditions due to external causes (3 sources) Systemic inflammatory response syndrome; Translations: [Systemic inflammatory response syndrome (SIRS) of non-infectious origin without acute organ dysfunction] 04-23-2024 Episodic Other liver diseases (5 sources) Steatosis of liver; Translations: [Fatty (change of) liver, not elsewhere classified] Onset: 12-22-2008 12-22-2008 Chronic Other liver diseases (5 sources) Elevated levels of transaminase & lactic acid dehydrogenase; Translations: [Nonspecific elevation of levels of transaminase or lactic acid dehydrogenase (LDH)] 03-13-2008 Episodic Other lower respiratory disease (1 source) Shortness of breath; Translations: [Shortness of breath] Onset: 09-08-2024 Episodic Other nervous system disorders (4 sources) Walking disability; Translations: [Difficulty in walking, not elsewhere classified] 04-29-2024 Chronic Other nervous system disorders (1 source) Difficulty in walking, not elsewhere classified; Translations: [Difficulty in walking, not elsewhere classified] Onset: 05-01-2024 Chronic Other nutritional; endocrine; and metabolic disorders (9 sources) Obesity; Translations: [Obesity, unspecified] Onset: 10-14-2007 04-10-2013 Chronic Other nutritional; endocrine; and metabolic disorders (4 sources) Obese class I; Translations: [Class 1 obesity] 04-29-2024 Chronic Other upper respiratory infections (3 sources) Acute maxillary sinusitis; Translations: [Acute maxillary sinusitis, unspecified] Onset: 03-13-2024 03-13-2024 Episodic Residual codes; unclassified (5 sources) Sleep apnea; Translations: [Sleep apnea, unspecified] Onset: 12-08-2013 12-08-2013 Chronic Residual codes; unclassified (3 sources) Patient noncompliance - general; Translations: [General patient noncompliance] 02-08-2024 Episodic Residual codes; unclassified (4 sources) Tobacco user; Translations: [Tobacco use] 04-30-2024 Episodic Residual codes; unclassified (9 sources) Noncompliance with medication regimen; Translations: [Noncompliance with medication regimen] 02-21-2024 Episodic Residual codes; unclassified (2 sources) History of clinical finding in subject; Translations: [Other specified health status] 08-31-2024 Episodic Residual codes; unclassified (1 source) Illness, unspecified; Translations: [Illness, unspecified] Onset: 09-03-2024 Episodic Residual codes; unclassified (1 source) Procedure and treatment not carried out due to patient leaving prior to being seen by health care provider; Translations: [Procedure and treatment not carried out due to patient leaving prior to being seen by health care provider] Onset: 06-26-2024 Episodic Screening and history of mental health and substance abuse codes (11 sources) H/O: attempted suicide; Translations: [History of suicide attempt] Onset: 10-17-2010 04-10-2013 Episodic Sprains and strains (4 sources) Sprain of shoulder rotator cuff; Translations: [Sprain of unspecified rotator cuff capsule, initial encounter] 01-29-2013 Episodic Substance-related disorders (19 sources) Tobacco dependence syndrome; Translations: [Nicotine dependence, unspecified, uncomplicated] Onset: 12-28-2023 04-10-2013 Chronic Suicide and intentional self-inflicted injury (9 sources) Poisoning by unspecified drugs, medicaments and biological substances, intentional self-harm, initial encounter; Translations: [Intentional drug overdose] Onset: 02-10-2024 04-10-2013 Episodic Superficial injury; contusion (4 sources) Contusion of upper limb; Translations: [Contusion of left upper arm, initial encounter] 08-05-2023 Episodic Unclassified (1 source) Acidosis, unspecified; Translations: [Acidosis, unspecified] Onset: 05-01-2024 Unclassified (1 source) Obesity, class 1; Translations: [Obesity, class 1] Onset: 05-01-2024 Unclassified (1 source) Patient's noncompliance with other medical treatment and regimen due to unspecified reason; Translations: [Patient's noncompliance with other medical treatment and regimen due to unspecified reason] Onset: 02-29-2024 Urinary tract infections (5 sources) Acute cystitis; Translations: [Acute cystitis without hematuria] Onset: 03-24-2024 03-24-2024 Episodic Past or Other Problems Problem Classification Problem Date Documented Date Episodic/Chronic Acute and unspecified renal failure (4 sources) Acute renal failure syndrome; Translations: [Acute kidney failure, unspecified] Onset: 05-09-2024 05-07-2024 Episodic Complications of surgical procedures or medical care (5 sources) Postoperative hematoma formation; Translations: [Hematoma complicating a procedure] Onset: 01-03-2009 Resolved: 06-21-2010 06-21-2010 Episodic Diabetes mellitus without complication (13 sources) Hyperglycemia; Translations: [Hyperglycemia, unspecified] Onset: 02-10-2024 03-24-2024 Episodic E Codes: Fall (5 sources) Fall; Translations: [Unspecified fall, initial encounter] Onset: 05-01-2024 04-29-2024 Episodic Esophageal disorders (5 sources) Gastroesophageal reflux disease; Translations: [Gastro-esophageal reflux disease without esophagitis] Resolved: 06-21-2010 06-21-2010 Chronic Nausea and vomiting (4 sources) Nausea; Translations: [Nausea] Onset: 04-17-2024 08-29-2024 Episodic Open wounds of head; neck; and trunk (1 source) Unspecified open wound of abdominal wall, unspecified quadrant without penetration into peritoneal cavity, initial encounter; Translations: [Unspecified open wound of abdominal wall, unspecified quadrant without penetration into peritoneal cavity, initial encounter] Onset: 04-17-2024 Episodic Other aftercare (1 source) 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; 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] Onset: 05-01-2024 Episodic Other aftercare (1 source) Encounter for change or removal of surgical wound dressing; Translations: [Encounter for change or removal of surgical wound dressing] Onset: 04-17-2024 Episodic Other connective tissue disease (5 sources) Radial styloid tenosynovitis; Translations: [Radial styloid tenosynovitis [de Quervain]] Onset: 04-30-2005 Resolved: 09-11-2007 10-24-2023 Episodic Other connective tissue disease (5 sources) Calcaneal spur; Translations: [Calcaneal spur, unspecified foot] Onset: 08-22-2005 Resolved: 09-11-2007 10-24-2023 Episodic Other ear and sense organ disorders (5 sources) Referred otalgia; Translations: [Otalgia, unspecified ear] Onset: 07-07-2012 04-10-2021 Episodic Other injuries and conditions due to external causes (1 source) Systemic inflammatory response syndrome (SIRS) of non-infectious origin without acute organ dysfunction; Translations: [Systemic inflammatory response syndrome (SIRS) of non-infectious origin without acute organ dysfunction] Onset: 05-09-2024 Episodic Other nervous system disorders (5 sources) Carpal tunnel syndrome; Translations: [Carpal tunnel syndrome, unspecified upper limb] Onset: 04-30-2005 Resolved: 09-11-2007 10-24-2023 Chronic Other nervous system disorders (5 sources) Lesion of ulnar nerve; Translations: [Lesion of ulnar nerve, unspecified upper limb] Onset: 04-30-2005 Resolved: 09-11-2007 10-24-2023 Chronic Other screening for suspected conditions (not mental disorders or infectious disease) (12 sources) Abnormal finding on screening procedure; Translations: [Abnormal level of other drugs, medicaments and biological substances in specimens from other organs, systems and tissues] Onset: 03-04-2012 04-10-2021 Episodic Pleurisy; pneumothorax; pulmonary collapse (8 sources) Bilateral pleural effusion; Translations: [Pleural effusion, not elsewhere classified] Onset: 05-09-2024 04-29-2024 Episodic Pneumonia (except that caused by tuberculosis or sexually transmitted disease) (6 sources) Pneumonia; Translations: [Pneumonia, unspecified organism] Onset: 05-01-2024 04-29-2024 Episodic Poisoning by other medications and drugs (5 sources) Acetaminophen overdose; Translations: [Poisoning by 4-Aminophenol derivatives, accidental (unintentional), initial encounter] Onset: 10-17-2010 04-10-2021 Episodic Residual codes; unclassified (4 sources) Other specified health status; Translations: [Failure of outpatient treatment] Onset: 02-29-2024 02-08-2024 Episodic Residual codes; unclassified (1 source) Tobacco use; Translations: [Tobacco use] Onset: 05-01-2024 Episodic Residual codes; unclassified (1 source) Personal history of other specified conditions; Translations: [Personal history of other specified conditions] Onset: 02-10-2024 Episodic Septicemia (except in labor) (4 sources) Septic shock; Translations: [Sepsis, unspecified organism] Onset: 05-09-2024 07-04-2024 Episodic Skin and subcutaneous tissue infections (20 sources) Cellulitis; Translations: [Cellulitis, unspecified] Onset: 11-03-2012 11-03-2012 Episodic Spondylosis; intervertebral disc disorders; other back problems (5 sources) Low back pain; Translations: [Lumbago] Onset: 03-23-2005 Resolved: 09-11-2007 10-24-2023 Episodic Results Test Name Value Interpretation Reference Range Facility Urine Cultureon 09-02-2024 [facility] Below infection leve l. Mixed Gram Positive Organisms [place] Count 1000-10,000 MIXC Mixed contaminants. Submit a new specimen if indicated. [facility] Comment on above: Performed By: #### M 100.2200 ####[facility] [address] [place], [address] 12 Lead EKGon 09-01-2024 12 Lead EKG Normal [facility] 12 Lead EKG Normal [facility] Absolute lymphocyte countOrd ered By: Chetna Sorensen on 09-01-2024 Lymphocytes Auto (Unsp spec) [#/Vol] 0.96 10*3/uL 0.83-4.51 [facility] Absolute neutrophil countOrd ered By: Chetna Sorensen on 09-01-2024 Neutrophils (Bld) [#/Vol] 2.7 10*3/uL 2.0-7.7 [facility] Amphetamine detection with 1 000 ng/mL as cutoffOrdered By: Chetna Sorensen on 09-01-2024 Amphetamines Screen method >1000 ng/mL Ql (U) Positive <1000 ng/mL [facility] Comment on above: If confirmation test ing is needed, a separate order will be required to send out testing to the reference laboratory. Amphetamines Screen method >1000 ng/mL Ql (U) Negative < 200 ng/mL [facility] Anion gap in Serum or Plasma Ordered By: Chetna Sorensen on 09-01-2024 Anion gap [Moles/Vol] 10 mmol/L 08-27 [facility] Automated lymphocyte count a s percentage of total leukocytesOrdered By: Chetna Sorensen on 09-01-2024 Lymphocytes/100 WBC Auto (Unsp spec) 22.1 % [facility] BUN/creatinine ratioOrdered By: Chetna Sorensen on 09-01-2024 Urea nitrogen/Creatinine [Mass ratio] 13.7 mg/mg 02-01 [facility] Basic Metabolic Profile (BMP )on 09-01-2024 BUN/CRE 13.7 RATIO Normal 02-01 [facility] Comment on above: Performed By: #### L 501.3620, L501.4021, L100.0100, L500.2500 ####[facility] [address] [place], [address] Calcium [Mass/Vol] 8.8 mg/dL Normal 7.6-11.0 [facility] Comment on above: Performed By: #### L [id number], [id number], L100.0100, L500.2500 ####[facility] [address] [place], [address] Chloride [Moles/Vol] 106 mmol/L Normal 98-108 [facility] Comment on above: Performed By: #### L [id number], L501.4021, L100.0100, L500.2500 ####[facility] [address] [place], [address] CO2 [Moles/Vol] 24.7 mmol/L Normal 21.0-32.0 [facility] Comment on above: Performed By: #### L [id number], [id number], L100.0100, L500.2500 ####[facility] [address] [place], [address] Creatinine [Mass/Vol] 0.50 mg/dL Low 0.70-1.20 [facility] Comment on above: Performed By: #### L [id number], [id number], L100.0100, L500.2500 ####[facility] [address] [place], [address] ECRCL 117.09 ml/min Normal 50-250 [facility] Comment on above: Performed By: #### L [id number], [id number], L100.0100, L500.2500 ####[facility] [address] [place], [address] GAP 10 Normal 5-15 [facility] Comment on above: Performed By: #### L 501.3620, [id number], L100.0100, L500.2500 ####[facility] [address] [place], [address] GFR/1.73 sq M.predicted among non-blacks MDRD (S/P/Bld) [Vol rate/Area] 112 mL/min/{1.73_m2} Normal >60 [facility] Comment on above: Result Comment: mL/m in/1.73m2 CKD-EPI Creatinine Equation (2020) Performed By: #### L [id number], [id number], L100.0100, L500.2500 ####[facility] [address] [place], [address] Glucose [Mass/Vol] 318 mg/dL High 70-99 [facility] Comment on above: Performed By: #### L 501.3620, [id number], L100.0100, L500.2500 ####[facility] [address] [place], [address] Potassium [Moles/Vol] 3.5 mmol/L Normal 3.3-5.1 [facility] Comment on above: Performed By: #### L 501.3620, [id number], L100.0100, L500.2500 ####[facility] [address] [place], [address] Sodium [Moles/Vol] 141 mmol/L Normal 133-145 [facility] Comment on above: Performed By: #### L 501.3620, [id number], L100.0100, L500.2500 ####[facility] [address] [place], [address] Urea nitrogen [Mass/Vol] 7 mg/dL Normal 4-19 [facility] Comment on above: Performed By: #### L 501.3620, [id number], L100.0100, L500.2500 ####[facility] [address] [place], [address] Basophil percentageOrdered B y: Chetna Sorensen on 09-01-2024 Basophils/100 WBC (Bld) 0.5 % 0-1 [facility] Bedside Glucoseon 09-01-2024 FINGERSTICK GLU 354 mg/dL High 74-106 [facility] Comment on above: Result Comment: DELLA GEMENT OF PATIENT CARE PER NURSING PROTOCOL Performed By: #### L 501.080 ####[facility] [address] [place], [address] FINGERSTICK GLU 365 mg/dL High 74-106 [facility] Comment on above: Result Comment: DELLA GEMENT OF PATIENT CARE PER NURSING PROTOCOL Performed By: #### L 501.080 ####[facility] [address] [place], [address] CBC W/Diff, Automatedon 05- 0-2024 Absolute Lymph 0.96 X10 3/uL Normal 0.83-4.51 [facility] Comment on above: Performed By: #### L 501.3620, [id number], L100.0100, L500.2500 ####[facility] [address] [place], [address] Absolute Neut 2.7 X10 3/uL Normal 2.0-7.7 [facility] Comment on above: Performed By: #### L 501.3620, [id number], L100.0100, L500.2500 ####[facility] [address] [place], [address] Basophils/100 WBC (Bld) 0.5 % Normal 0-1 [facility] Comment on above: Performed By: #### L 501.3620, [id number], L100.0100, L500.2500 ####[facility] [address] [place], [address] Eosinophils/100 WBC (Bld) 3.5 % Normal 0-5 [facility] Comment on above: Performed By: #### L 501.3620, [id number], L100.0100, L500.2500 ####[facility] [address] [place], [address] Erythrocyte distribution width (RBC) [Ratio] 13.1 % Normal 11.6-14.6 [facility] Comment on above: Performed By: #### L 501.3620, [id number], L100.0100, L500.2500 ####[facility] [address] [place], [address] Hematocrit (Bld) [Volume fraction] 39.7 % Normal 37-47 [facility] Comment on above: Performed By: #### L 501.3620, [id number], L100.0100, L500.2500 ####[facility] [address] [place], [address] Hemoglobin (Bld) [Mass/Vol] 13.6 g/dL Normal 12.0-15.0 [facility] Comment on above: Performed By: #### L 501.3620, [id number], L100.0100, L500.2500 ####[facility] [address] [place], [address] IG% 0.500 Normal 0.0-0.9 [facility] Comment on above: Result Comment: IG% - Immature Granulocytes (promyelocytes, myelocytes andmetamyelocytes) > 1% indicates that a LEFT SHIFT is Present. Performed By: #### L 501.3620, L501.4021, L100.0100, L500.2500 ####[facility] [address] [place], [address] Lymphocytes/100 WBC (Bld) 22.1 % Normal 19-41 [facility] Comment on above: Performed By: #### L 501.3620, [id number], L100.0100, L500.2500 ####[facility] [address] [place], [address] MCH (RBC) [Entitic mass] 28.3 pg Normal 27.0-32.0 [facility] Comment on above: Performed By: #### L 501.3620, [id number], L100.0100, L500.2500 ####[facility] [address] [place], [address] MCHC (RBC) [Mass/Vol] 34.3 g/dL Normal 32-36 [facility] Comment on above: Performed By: #### L 501.3620, [id number], L100.0100, L500.2500 ####[facility] [address] [place], [address] MCV (RBC) [Entitic vol] 82.7 fL Normal 81-99 [facility] Comment on above: Performed By: #### L 501.3620, [id number], L100.0100, L500.2500 ####[facility] [address] [place], [address] Monocytes/100 WBC (Bld) 11.3 % High 0-10 [facility] Comment on above: Performed By: #### L 501.3620, [id number], L100.0100, L500.2500 ####[facility] [address] [place], [address] Neutrophils/100 WBC (Bld) 62.1 % Normal 47-70 [facility] Comment on above: Performed By: #### L 501.3620, [id number], L100.0100, L500.2500 ####[facility] [address] [place], [address] Nucleated RBC (Bld) [#/Vol] 0 10*3/uL Normal 0-5 [facility] Comment on above: Performed By: #### L 501.3620, [id number], L100.0100, L500.2500 ####[facility] [address] [place], [address] Platelet mean volume (Bld) [Entitic vol] 9.8 fL Normal 6.2-12.0 [facility] Comment on above: Performed By: #### L 501.3620, [id number], L100.0100, L500.2500 ####[facility] [address] [place], [address] Platelets (Bld) [#/Vol] 186 10*3/uL Normal 150-450 [facility] Comment on above: Performed By: #### L 501.3620, L501.4021, L100.0100, L500.2500 ####[facility] [address] [place], [address] RBC (Bld) [#/Vol] 4.80 10*6/uL Normal 4.2-5.4 [facility] Comment on above: Performed By: #### L 501.3620, L501.4021, L100.0100, L500.2500 ####[facility] [address] [place], [address] RDW SD 39.3 fl Normal 35.1-43.9 [facility] Comment on above: Performed By: #### L 501.3620, L501.4021, L100.0100, L500.2500 ####[facility] [address] [place], [address] WBC (Bld) [#/Vol] 4.3 10*3/uL Low 4.4-11.0 [facility] Comment on above: Performed By: #### L 501.3620, L501.4021, L100.0100, L500.2500 ####[facility] [address] [place], [address] CPK Total, Creatine Kinaseon 09-01-2024 CPK TOTAL 31 U/L Normal 24-195 [facility] Comment on above: Performed By: #### L 501.3620, L501.4021, L100.0100, L500.2500 ####[facility] [address] [place], [address] Carbon dioxide, total [Moles /volume] in Central venous bloodOrdered By: Chetna Sorensen on 09-01-2024 CO2 [Moles/Vol] 24.7 mmol/L 21.0-32.0 [facility] Chest PA and Lateralon 09-01 Chest PA and Lateral Normal [facility] Chloride assayOrdered By: Ronal Sorensen on 09-01-2024 Chloride [Moles/Vol] 106 mmol/L 98-108 [facility] Electrocardiogram reportOrde red By: Alec Casas on 09-01-2024 EKG study [facility] [address] [place] [address] 12 Lead EKG 08/31/24 1818 MR#: [id number] Acct: [id number] Name: ANA CRISTINA THOMAS Rep #:[id number] : 1970 53 From: Alec Casas MD Attending Dr: Status: REG E R Ordering Dr: Chetna Sorensen DO Date: 09/01/24 Location: ED Sex: F C Admitted: Test Reason : CP Blood Pressure : */* mmHG Vent. Rate : 90 BPM Atrial Rate : 90 BPM P-R Int : 148 ms QRS Dur : 80 ms QT Int : 378 ms P-R-T Axes : 25 -18 -16 degrees QTcB Int : 462 ms Normal sinus rhythm Septal infarct , age undetermined Inferior infarct , age undetermined Abnormal ECG Confirmed by ALEC CASAS MD ([id number]), graphic editor SYLVESTER BURCH ([id number]) on 51:28:51 PM Referred By: ES Confirmed By: ALEC CASAS MD 09/01/24 1328 Date _ Alec Casas MD CC: Dr. Chetna Godman, DO; No Primary Care Physician ~ Signed [facility] Other Emergency Department Summary on 09-01-2024 Emergency Department Summary Normal [facility] Eosinophil percentageOrdered By: Chetna Sorensen on 09-01-2024 Eosinophils/100 WBC (Bld) 3.5 % 0-5 [facility] Erythrocyte distribution wid th ratioOrdered By: Chetna Sorensen on 09-01-2024 Erythrocyte distribution width (RBC) [Ratio] 13.1 % 11.6-14.6 [facility] Erythrocyte distribution wid th standard deviationOrdered By: Chetna Sorensen on 09-01-2024 Erythrocyte distribution width (RBC) [Ratio] 39.3 fl 35.1-43.9 [facility] Glomerular filtration rate ( GFR) estimation/1.73 sq m using serum, plasma, or whole bOrdered By: Chetna Sorensen on 09-01-2024 GFR/1.73 sq M.predicted among non-blacks MDRD (S/P/Bld) [Vol rate/Area] 112 mL/min/{1.73_m2} >60 [facility] Comment on above: mL/min/1.73m2 CKD-EP I Creatinine Equation (2020) [facility]: Chetna Sorensen on 09-01-2024 Glucose [Mass/Vol] 354 mg/dL High 74-106 [facility] Comment on above: MANAGEMENT OF PATIEN T CARE PER NURSING PROTOCOL Hematocrit Auto (Bld) [Volum e fraction]Ordered By: Chetna Sorensen on 09-01-2024 Hematocrit (Bld) [Volume fraction] 39.7 % 37-47 [facility] Hemoglobin measurementOrdere d By: Chetna Sorensen on 09-01-2024 Hemoglobin (Bld) [Mass/Vol] 13.6 g/dL 12.0-15.0 [facility] Immature granulocytes/100 WB C Auto (Bld)Ordered By: Chetna Sorensen on 09-01-2024 Immature granulocytes/100 WBC (Bld) 0.500 % 0.0-0.9 [facility] Comment on above: IG% - Immature Granu locytes (promyelocytes, myelocytes and metamyelocytes) > 1% indicates that a LEFT SHIFT is Present. L499.0042on 09-01-2024 Trop T High Sen < 6 Normal <=14 [facility] Comment on above: Performed By: #### L 499.0042 ####[facility] [address] [place], [address] L499.0043on 09-01-2024 Trop T High Sen < 6 Normal <=14 [facility] Comment on above: Performed By: #### L 499.0043 ####[facility] [address] [place], [address] L501.4021on 09-01-2024 Trop T High Sen < 6 Normal <=14 [facility] Comment on above: Performed By: #### L 501.3620, L501.4021, L100.0100, L500.2500 ####[facility] [address] [place], [address] MCV (mean corpuscular volume ) determinationOrdered By: Chetna Sorensen on 09-01-2024 MCV (RBC) [Entitic vol] 82.7 fL 81-99 [facility] Mean corpuscular hemoglobin (MCH) determinationOrdered By: Chetna Sorensen on 09-01-2024 MCH (RBC) [Entitic mass] 28.3 pg 27.0-32.0 [facility] Mean corpuscular hemoglobin concentration (MCHC) determinationOrdered By: Chetna Sorensen on 09-01-2024 MCHC (RBC) [Mass/Vol] 34.3 g/dL 32-36 [facility] Mean platelet volume determi nationOrdered By: Chetna Sorensen on 09-01-2024 Platelet mean volume (Bld) [Entitic vol] 9.8 fL 6.2-12.0 [facility] Monocyte percentageOrdered B y: Chetna Sorensen on 09-01-2024 Monocytes/100 WBC (Bld) 11.3 % High 0-10 [facility] Neutrophil percentageOrdered By: Chetna Sorensen on 09-01-2024 Neutrophils/100 WBC (Bld) 62.1 % 47-70 [facility] No Panel InformationOrdered By: Chetna Sorensen on 09-01-2024 Urine Buprenorphine Qualitative Negative < 200 ng/mL [facility] Urine Oxycodone Screen Negative < 100 ng/mL [facility] Nucleated red blood cell per centageOrdered By: Chetna Sorensen on 09-01-2024 Nucleated RBC/100 WBC (Bld) [Ratio] 0 % 0-5 [facility] Platelet countOrdered By: Ronal Sorensen on 09-01-2024 Platelets (Bld) [#/Vol] 186 10*3/uL 150-450 [facility] Potassium measurement (mass/ volume)Ordered By: Chetna Sorensen on 09-01-2024 Potassium (Unsp spec) [Mass/Vol] 3.5 mmol/L 3.3-5.1 [facility] Quantitative urine opiates m easurementOrdered By: Chetna Sorensen on 09-01-2024 Opiates Ql (U) Negative < 300 ng/mL [facility] RBC Auto (Bld) [#/Vol]Ordere d By: Chetna Sorensen on 09-01-2024 RBC (Bld) [#/Vol] 4.80 10*6/uL 4.2-5.4 [facility] Screening urine fentanyl saeed surementOrdered By: Chetna Sorensen on 09-01-2024 fentaNYL Screen Ql (U) Negative [facility] Serum creatinine measurement (mass/volume)Ordered By: Chetna Sorensen on 09-01-2024 Creatinine [Mass/Vol] 0.50 mg/dL Low 0.70-1.20 [facility] Serum glucose measurement (m ass/volume)Ordered By: Chetna Sorensen on 09-01-2024 Glucose [Mass/Vol] 318 mg/dL High 70-99 [facility] Serum or plasma calcium anna urement (mass/volume)Ordered By: Chetna Sorensen on 09-01-2024 Calcium [Mass/Vol] 8.8 mg/dL 7.6-11.0 [facility] Serum or plasma creatine kin ase activityOrdered By: Chetna Sorensen on 09-01-2024 CK [Catalytic activity/Vol] 31 U/L 24-195 [facility] Serum or plasma urea nitroge n measurement (mass/volume)Ordered By: Chetna Sorensen on 09-01-2024 Urea nitrogen [Mass/Vol] 7 mg/dL 4-19 [facility] Sodium levelOrdered By: Dara Sorensen on 09-01-2024 Sodium [Moles/Vol] 141 mmol/L 133-145 [facility] Troponin T.cardiac [Mass/vol ume] in Serum or Plasma by High sensitivity methodOrdered By: Chetna Sorensen on 09-01-2024 Troponin T.cardiac High sensitivity method [Mass/Vol] < 6 ng/L <14 [facility] Troponin T.cardiac High sensitivity method [Mass/Vol] < 6 ng/L <14 [facility] Troponin T.cardiac High sensitivity method [Mass/Vol] < 6 ng/L <14 [facility] Urine Drug Screen (VISTA)on 09-01-2024 AMPHETAMINES Positive Normal <1000 ng/mL [facility] Comment on above: Result Comment: If c onfirmation testing is needed, a separate order will berequired to send out testing to the reference laboratory. Performed By: #### L 505.5000 ####[facility] [address] [place] [address] BARBITIURATES Negative Normal < 200 ng/mL [facility] Comment on above: Performed By: #### L 505.5000 ####[facility] [address] [place] [address] BENZODIAZIPINE Negative Normal < 200 ng/mL [facility] Comment on above: Performed By: #### L 505.5000 ####[facility] [address] [place] [id number] BUP Ur Drug Scr Negative Normal < 200 ng/mL [facility] Comment on above: Performed By: #### L 505.5000 ####[facility] [address] [place] [id number] COCAINE Positive Normal < 300 ng/mL [facility] Comment on above: Result Comment: If c onfirmation testing is needed, a separate order will berequired to send out testing to the reference laboratory. Performed By: #### L 505.5000 ####[facility] [address] [place] [address] Fentanyl Negative Normal [facility] Comment on above: Performed By: #### L 505.5000 ####[facility] [address] [place] [address] METHADONE Negative Normal < 300 ng/mL [facility] Comment on above: Performed By: #### L 505.5000 ####[facility] [address] [place] [address] OPIATES Negative Normal < 300 ng/mL [facility] Comment on above: Performed By: #### L 505.5000 ####[facility] [address] [place] [address] OXYCODONE Negative Normal < 100 ng/mL [facility] Comment on above: Performed By: #### L 505.5000 ####[facility] [address] [place] [address] PCP Negative Normal < 25 ng/mL [facility] Comment on above: Performed By: #### L 505.5000 ####[facility] [address] [place] [address] THC Negative Normal < 50 ng/mL [facility] Comment on above: Performed By: #### L 505.5000 ####[facility] [address] [place] [address] Urine benzodiazepine levelOr dered By: Chetna Sorensen on 09-01-2024 Benzodiazepines Ql (U) Negative < 200 ng/mL [facility] Urine cocaine levelOrdered B y: Chetna Sorensen on 09-01-2024 Cocaine Ql (U) Positive < 300 ng/mL [facility] Comment on above: If confirmation test ing is needed, a separate order will be required to send out testing to the reference laboratory. Urine lmisx-7-jikwhctssgaeag abinol (THC) measurementOrdered By: Chetna Sorensen on 09-01-2024 Cannabinoids Screen Ql (U) Negative < 50 ng/mL [facility] Urine phencyclidine (PCP) de tectionOrdered By: Chetna Sorensen on 09-01-2024 Phencyclidine Ql (U) Negative < 25 ng/mL [facility] White blood cell (WBC) count Ordered By: Chetna Sorensen on 09-01-2024 WBC (Bld) [#/Vol] 4.3 10*3/uL Low 4.4-11.0 [facility] Absolute lymphocyte countOrd ered By: Nate Conrad on 08-31-2024 Lymphocytes Auto (Unsp spec) [#/Vol] 1.26 10*3/uL 0.83-4.51 [facility] Absolute neutrophil countOrd ered By: Nate Conrad on 08-31-2024 Neutrophils (Bld) [#/Vol] 3.3 10*3/uL 2.0-7.7 [facility] Anion gap in Serum or Plasma Ordered By: Nate Conrad on 08-31-2024 Anion gap [Moles/Vol] 12 mmol/L 08-27 [facility] Automated lymphocyte count a s percentage of total leukocytesOrdered By: Nate Conrad on 08-31-2024 Lymphocytes/100 WBC Auto (Unsp spec) 24.2 % [facility] BUN/creatinine ratioOrdered By: Nate Conrad on 08-31-2024 Urea nitrogen/Creatinine [Mass ratio] 14.3 mg/mg 02-01 [facility] Basic Metabolic Profile (BMP )on 08-31-2024 BUN/CRE 14.3 RATIO Normal 02-01 [facility] Comment on above: Performed By: #### L 100.0100, L501.6901, L500.2500 ####[facility] [address] [place], [address] Calcium [Mass/Vol] 9.0 mg/dL Normal 7.6-11.0 [facility] Comment on above: Performed By: #### L 100.0100, L501.6901, L500.2500 ####[facility] [address] [place], [address] Chloride [Moles/Vol] 101 mmol/L Normal 98-108 [facility] Comment on above: Performed By: #### L 100.0100, L501.6901, L500.2500 ####[facility] [address] [place], [address] CO2 [Moles/Vol] 24.8 mmol/L Normal 21.0-32.0 [facility] Comment on above: Performed By: #### L 100.0100, L501.6901, L500.2500 ####[facility] [address] [place], [address] Creatinine [Mass/Vol] 0.52 mg/dL Low 0.70-1.20 [facility] Comment on above: Performed By: #### L 100.0100, L501.6901, L500.2500 ####[facility] [address] [place], [address] ECRCL 112.58 ml/min Normal 50-250 [facility] Comment on above: Performed By: #### L 100.0100, L501.6901, L500.2500 ####[facility] [address] [place], [address] GAP 12 Normal 5-15 [facility] Comment on above: Performed By: #### L 100.0100, L501.6901, L500.2500 ####[facility] [address] [place], [address] GFR/1.73 sq M.predicted among non-blacks MDRD (S/P/Bld) [Vol rate/Area] 111 mL/min/{1.73_m2} Normal >60 [facility] Comment on above: Result Comment: mL/m in/1.73m2 CKD-EPI Creatinine Equation (2020) Performed By: #### L 100.0100, L501.6901, L500.2500 ####[facility] [address] [place], [address] Glucose [Mass/Vol] 333 mg/dL High 70-99 [facility] Comment on above: Performed By: #### L 100.0100, L501.6901, L500.2500 ####[facility] [address] [place], [address] Potassium [Moles/Vol] 3.2 mmol/L Low 3.3-5.1 [facility] Comment on above: Performed By: #### L 100.0100, L501.6901, L500.2500 ####[facility] [address] [place], [address] Sodium [Moles/Vol] 138 mmol/L Normal 133-145 [facility] Comment on above: Performed By: #### L 100.0100, L501.6901, L500.2500 ####[facility] [address] [place], [address] Urea nitrogen [Mass/Vol] 7 mg/dL Normal 4-19 [facility] Comment on above: Performed By: #### L 100.0100, L501.6901, L500.2500 ####[facility] [address] [place], [address] Basophil percentageOrdered B y: Nate Conrad on 08-31-2024 Basophils/100 WBC (Bld) 0.8 % 0-1 [facility] Beta-Hydroxbytyrateon 2024 BETA-HYDROXYBUT 0.6 mmol/L Normal 0.0-0.3 [facility] Comment on above: Performed By: #### L 100.0100, L501.6901, L500.2500 ####[facility] [address] [place], [address] Beta-hydroxybutyrateOrdered By: Nate Conrad on 08-31-2024 Beta hydroxybutyrate [Mass/Vol] 0.6 mmol/L 0.0-0.3 [facility] Bilirubin Test strip Ql (U)O rdered By: Nate Conrad on 08-31-2024 Bilirubin Ql (U) Negative Negative [facility] CBC W/Diff, Automatedon 05 Absolute Lymph 1.26 X10 3/uL Normal 0.83-4.51 [facility] Comment on above: Performed By: #### L 100.0100, L501.6901, L500.2500 ####[facility] [address] [place], [address] Absolute Neut 3.3 X10 3/uL Normal 2.0-7.7 [facility] Comment on above: Performed By: #### L 100.0100, L501.6901, L500.2500 ####[facility] [address] [place], [address] Basophils/100 WBC (Bld) 0.8 % Normal 0-1 [facility] Comment on above: Performed By: #### L 100.0100, L501.6901, L500.2500 ####[facility] [address] [place], [address] Eosinophils/100 WBC (Bld) 2.7 % Normal 0-5 [facility] Comment on above: Performed By: #### L 100.0100, L501.6901, L500.2500 ####[facility] [address] [place], [address] Erythrocyte distribution width (RBC) [Ratio] 13.0 % Normal 11.6-14.6 [facility] Comment on above: Performed By: #### L 100.0100, L501.6901, L500.2500 ####[facility] [address] [place], [address] Hematocrit (Bld) [Volume fraction] 42.4 % Normal 37-47 [facility] Comment on above: Performed By: #### L 100.0100, L501.6901, L500.2500 ####[facility] [address] [place], [address] Hemoglobin (Bld) [Mass/Vol] 14.5 g/dL Normal 12.0-15.0 [facility] Comment on above: Performed By: #### L 100.0100, L501.6901, L500.2500 ####[facility] [address] [place], [address] IG% 0.400 Normal 0.0-0.9 [facility] Comment on above: Result Comment: IG% - Immature Granulocytes (promyelocytes, myelocytes andmetamyelocytes) > 1% indicates that a LEFT SHIFT is Present. Performed By: #### L 100.0100, L501.6901, L500.2500 ####[facility] [address] [place], [address] Lymphocytes/100 WBC (Bld) 24.2 % Normal 19-41 [facility] Comment on above: Performed By: #### L 100.0100, L501.6901, L500.2500 ####[facility] [address] [place], [address] MCH (RBC) [Entitic mass] 28.2 pg Normal 27.0-32.0 [facility] Comment on above: Performed By: #### L 100.0100, L501.6901, L500.2500 ####[facility] [address] [place], [address] MCHC (RBC) [Mass/Vol] 34.2 g/dL Normal 32-36 [facility] Comment on above: Performed By: #### L 100.0100, L501.6901, L500.2500 ####[facility] [address] [place], [address] MCV (RBC) [Entitic vol] 82.3 fL Normal 81-99 [facility] Comment on above: Performed By: #### L 100.0100, L501.6901, L500.2500 ####[facility] [address] [place], [address] Monocytes/100 WBC (Bld) 8.6 % Normal 0-10 [facility] Comment on above: Performed By: #### L 100.0100, L501.6901, L500.2500 ####[facility] [address] [place], [address] Neutrophils/100 WBC (Bld) 63.3 % Normal 47-70 [facility] Comment on above: Performed By: #### L 100.0100, L501.6901, L500.2500 ####[facility] [address] [place], [address] Nucleated RBC (Bld) [#/Vol] 0 10*3/uL Normal 0-5 [facility] Comment on above: Performed By: #### L 100.0100, L501.6901, L500.2500 ####[facility] [address] [place], [address] Platelet mean volume (Bld) [Entitic vol] 9.9 fL Normal 6.2-12.0 [facility] Comment on above: Performed By: #### L 100.0100, L501.6901, L500.2500 ####[facility] [address] [place], [address] Platelets (Bld) [#/Vol] 211 10*3/uL Normal 150-450 [facility] Comment on above: Performed By: #### L 100.0100, L501.6901, L500.2500 ####[facility] [address] [place], [address] RBC (Bld) [#/Vol] 5.15 10*6/uL Normal 4.2-5.4 [facility] Comment on above: Performed By: #### L 100.0100, L501.6901, L500.2500 ####[facility] [address] [place], [address] RDW SD 38.5 fl Normal 35.1-43.9 [facility] Comment on above: Performed By: #### L 100.0100, L501.6901, L500.2500 ####[facility] [address] [place], [address] WBC (Bld) [#/Vol] 5.2 10*3/uL Normal 4.4-11.0 [facility] Comment on above: Performed By: #### L 100.0100, L501.6901, L500.2500 ####[facility] [address] [place], [address] Carbon dioxide, total [Moles /volume] in Central venous bloodOrdered By: Nate Conrad on 08-31-2024 CO2 [Moles/Vol] 24.8 mmol/L 21.0-32.0 [facility] Chloride assayOrdered By: Shaquille Conrad on 08-31-2024 Chloride [Moles/Vol] 101 mmol/L 98-108 [facility] Emergency Department Summary on 08-31-2024 Emergency Department Summary Normal [facility] Eosinophil percentageOrdered By: Nate Conrad on 08-31-2024 Eosinophils/100 WBC (Bld) 2.7 % 0-5 [facility] Erythrocyte distribution wid th ratioOrdered By: Nate Conrad on 08-31-2024 Erythrocyte distribution width (RBC) [Ratio] 13.0 % 11.6-14.6 [facility] Erythrocyte distribution wid th standard deviationOrdered By: Nate Conrad on 08-31-2024 Erythrocyte distribution width (RBC) [Ratio] 38.5 fl 35.1-43.9 [facility] Glomerular filtration rate ( GFR) estimation/1.73 sq m using serum, plasma, or whole bOrdered By: Nate Conrad on 08-31-2024 GFR/1.73 sq M.predicted among non-blacks MDRD (S/P/Bld) [Vol rate/Area] 111 mL/min/{1.73_m2} >60 [facility] Comment on above: mL/min/1.73m2 CKD-EP I Creatinine Equation (2020) Hematocrit Auto (Bld) [Volum e fraction]Ordered By: Nate Conrad on 08-31-2024 Hematocrit (Bld) [Volume fraction] 42.4 % 37-47 [facility] Hemoglobin measurementOrdere d By: Nate Conrad on 08-31-2024 Hemoglobin (Bld) [Mass/Vol] 14.5 g/dL 12.0-15.0 [facility] Immature granulocytes/100 WB C Auto (Bld)Ordered By: Nate Conrad on 08-31-2024 Immature granulocytes/100 WBC (Bld) 0.400 % 0.0-0.9 [facility] Comment on above: IG% - Immature Granu locytes (promyelocytes, myelocytes and metamyelocytes) > 1% indicates that a LEFT SHIFT is Present. Ketones Test strip Ql (U)Ord ered By: Nate Conrad on 08-31-2024 Ketones Ql (U) 15 mg/dl High Negative [facility] MCV (mean corpuscular volume ) determinationOrdered By: Nate Conrad on 08-31-2024 MCV (RBC) [Entitic vol] 82.3 fL 81-99 [facility] Mean corpuscular hemoglobin (MCH) determinationOrdered By: Nate Conrad on 08-31-2024 MCH (RBC) [Entitic mass] 28.2 pg 27.0-32.0 [facility] Mean corpuscular hemoglobin concentration (MCHC) determinationOrdered By: Nate Conrad on 08-31-2024 MCHC (RBC) [Mass/Vol] 34.2 g/dL 32-36 [facility] Mean platelet volume determi nationOrdered By: Nate Conrad on 08-31-2024 Platelet mean volume (Bld) [Entitic vol] 9.9 fL 6.2-12.0 [facility] Microscopic analysis of urin e for red blood cells (RBC)Ordered By: Nate Conrad on 08-31-2024 Microscopic analysis of urine for red blood cells (RBC) 10-25 SEEN /hpf 0-5 [facility] Monocyte percentageOrdered B y: Nate Conrad on 08-31-2024 Monocytes/100 WBC (Bld) 8.6 % 0-10 [facility] Mucus LM Ql (Urine sed)Order ed By: Nate Conrad on 08-31-2024 Mucus Ql (Urine sed) 0 SEEN /hpf [facility] Neutrophil percentageOrdered By: Nate Conrad on 08-31-2024 Neutrophils/100 WBC (Bld) 63.3 % 47-70 [facility] Nitrite Test strip Ql (U)Ord ered By: Nate Conrad on 08-31-2024 Nitrite Ql (U) Negative Negative [facility] Nucleated red blood cell per centageOrdered By: Nate Conrad on 08-31-2024 Nucleated RBC/100 WBC (Bld) [Ratio] 0 % 0-5 [facility] Platelet countOrdered By: Shaquille Conrad on 08-31-2024 Platelets (Bld) [#/Vol] 211 10*3/uL 150-450 [facility] Potassium measurement (mass/ volume)Ordered By: Nate Conrad on 08-31-2024 Potassium (Unsp spec) [Mass/Vol] 3.2 mmol/L Low 3.3-5.1 [facility] Protein Test strip Ql (U)Ord ered By: Nate Conrad on 08-31-2024 Protein Ql (U) 15 mg/dl High Negative [facility] RBC Auto (Bld) [#/Vol]Ordere d By: Nate Conrad on 08-31-2024 RBC (Bld) [#/Vol] 5.15 10*6/uL 4.2-5.4 [facility] Serum creatinine measurement (mass/volume)Ordered By: Nate Conrad on 08-31-2024 Creatinine [Mass/Vol] 0.52 mg/dL Low 0.70-1.20 [facility] Serum glucose measurement (m ass/volume)Ordered By: Nate Cnorad on 08-31-2024 Glucose [Mass/Vol] 333 mg/dL High 70-99 [facility] Serum or plasma calcium anna urement (mass/volume)Ordered By: Nate Conrad on 08-31-2024 Calcium [Mass/Vol] 9.0 mg/dL 7.6-11.0 [facility] Serum or plasma urea nitroge n measurement (mass/volume)Ordered By: Nate Conrad on 08-31-2024 Urea nitrogen [Mass/Vol] 7 mg/dL - [facility] Sodium levelOrdered By: Nate Conrad on 08-31-2024 Sodium [Moles/Vol] 138 mmol/L 133-145 [facility] Squamous epithelial cells de tection in urine sediment by light microscopyOrdered By: Nate Conrad on 08-31-2024 Epithelial cells.squamous LM Ql (Urine sed) 0 SEEN /hpf 5-10 [facility] Urinalysis, Completeon 08-31 BACTERIA 1+ /hpf Normal None Seen [facility] Comment on above: Order Comment: CLEAN CATCH Performed By: #### L 400.0001 ####[facility] [address] [place], [address] RBC 10-25 SEEN Normal 0-5 [facility] Comment on above: Order Comment: CLEAN CATCH Performed By: #### L 400.0001 ####[facility] [address] [place], [address] WBC 10-25 SEEN Normal 0-[address] [place] [address] Comment on above: Order Comment: CLEAN CATCH Performed By: #### L 400.0001 ####[facility] [address] [place], [address] EPI,SQUAMOUS 0 SEEN Normal 5-10 [facility] Comment on above: Order Comment: CLEAN CATCH Performed By: #### L 400.0001 ####[facility] [address] [place], [address] Mucus Ql (Urine sed) 0 SEEN Normal [facility] Comment on above: Order Comment: CLEAN CATCH Performed By: #### L 400.0001 ####[facility] [address] [place], [address] Urine clarityOrdered By: Jad Conrad on 08-31-2024 Clarity (U) Cloudy Clear [facility] Urine color determinationOrd ered By: Nate Conrad on 08-31-2024 Color (U) Yellow Yellow [facility] Urine glucose detectionOrder ed By: Nate Conrad on 08-31-2024 Glucose Ql (U) 1000 mg/dl High Normal [facility] Urine leukocyte esterase det ection by dipstickOrdered By: Nate Conrad on 08-31-2024 Leukocyte esterase Test strip Ql (U) 100 /ul High Negative [facility] Urine pHOrdered By: Nate Yo ght on 08-31-2024 pH (U) 6.0 [pH] 5.0 - 8.0 [facility] Urine sediment bacteria coun t by microscopy (number/high power field)Ordered By: Nate Conrad on 08-31-2024 Bacteria LM.HPF (Urine sed) [#/Area] 1 /[HPF] None Seen [facility] Urine specific gravity measu rementOrdered By: Nate Conrad on 08-31-2024 Specific gravity (U) [Rel density] 1.015 1.002-1.030 [facility] Urine urobilinogen measureme ntOrdered By: Nate Conrad on 08-31-2024 Urobilinogen Ql (U) 1 mg/dl High Normal [facility] White blood cell (WBC) count Ordered By: Nate Conrad on 08-31-2024 WBC (Bld) [#/Vol] 5.2 10*3/uL 4.4-11.0 [facility] White blood cell countOrdere d By: Nate Conrad on 08-31-2024 White blood cell count 10-25 SEEN /hpf 0-5 [facility] Urine Cultureon 08-30-2024 URC Mixed Gram Pos Gram Neg Org [place] Count 25,000-50,000 MIXC Mixed contaminants. Submit a new specimen if indicated. Normal [facility] Comment on above: Performed By: #### M 100.2139 ####[facility] [address] [place], [place], [id number] Absolute lymphocyte countOrd ered By: Monisha Doe on 08-29-2024 Lymphocytes Auto (Unsp spec) [#/Vol] 1.32 10*3/uL 0.83-4.51 [facility] Absolute neutrophil countOrd ered By: Monisha Doe on 08-29-2024 Neutrophils (Bld) [#/Vol] 3.6 10*3/uL 2.0-7.7 [facility] Anion gap in Serum or Plasma Ordered By: Monisha Doe on 08-29-2024 Anion gap [Moles/Vol] 12 mmol/L 08-27 [facility] Automated lymphocyte count a s percentage of total leukocytesOrdered By: Monisha Doe on 08-29-2024 Lymphocytes/100 WBC Auto (Unsp spec) 23.2 % [facility] BUN/creatinine ratioOrdered By: Monisha Doe on 08-29-2024 Urea nitrogen/Creatinine [Mass ratio] 17.3 mg/mg 02-01 [facility] Basic Metabolic Profile (BMP )on 08-29-2024 BUN/CRE 17.3 RATIO Normal 02-01 [facility] Comment on above: Performed By: #### L 501.6901, L500.2500 ####[facility] [address] [place], [address] Calcium [Mass/Vol] 9.2 mg/dL Normal 7.6-11.0 [facility] Comment on above: Performed By: #### L 501.6901, L500.2500 ####[facility] [address] [place], [address] Chloride [Moles/Vol] 102 mmol/L Normal 98-108 [facility] Comment on above: Performed By: #### L 501.6901, L500.2500 ####[facility] [address] [place], [address] CO2 [Moles/Vol] 24.5 mmol/L Normal 21.0-32.0 [facility] Comment on above: Performed By: #### L 501.6901, L500.2500 ####[facility] [address] [place], [address] Creatinine [Mass/Vol] 0.63 mg/dL Low 0.70-1.20 [facility] Comment on above: Performed By: #### L 501.6901, L500.2500 ####[facility] [address] [place], [address] ECRCL 100.82 ml/min Normal 50-250 [facility] Comment on above: Performed By: #### L 501.6901, L500.2500 ####[facility] [address] [place], [address] GAP 12 Normal 5-15 [facility] Comment on above: Performed By: #### L 501.6901, L500.2500 ####[facility] [address] [place], [address] GFR/1.73 sq M.predicted among non-blacks MDRD (S/P/Bld) [Vol rate/Area] 106 mL/min/{1.73_m2} Normal >60 [facility] Comment on above: Result Comment: mL/m in/1.73m2 CKD-EPI Creatinine Equation (2020) Performed By: #### L 501.6901, L500.2500 ####[facility] [address] [place], [address] Glucose [Mass/Vol] 332 mg/dL High 70-99 [facility] Comment on above: Performed By: #### L 501.6901, L500.2500 ####[facility] [address] [place], [address] Potassium [Moles/Vol] 3.4 mmol/L Normal 3.3-5.1 [facility] Comment on above: Result Comment: Hemo lysis present, Results??could be affected.?? Performed By: #### L 501.6901, L500.2500 ####[facility] [address] [place], [address] Sodium [Moles/Vol] 139 mmol/L Normal 133-145 [facility] Comment on above: Performed By: #### L 501.6901, L500.2500 ####[facility] [address] [place], [address] Urea nitrogen [Mass/Vol] 11 mg/dL Normal 4-19 [facility] Comment on above: Performed By: #### L 501.6901, L500.2500 ####[facility] [address] [place], [address] Basophil percentageOrdered B y: Monisha Doe on 08-29-2024 Basophils/100 WBC (Bld) 0.7 % 0-1 [facility] Bedside Glucoseon 08-29-2024 FINGERSTICK GLU 317 mg/dL High 74-106 [facility] Comment on above: Result Comment: DELLA COX OF PATIENT CARE PER NURSING PROTOCOL Performed By: #### L 501.080 ####[facility] [address] [place], [address] Beta-Hydroxbytyrateon 2024 BETA-HYDROXYBUT 0.6 mmol/L Normal 0.0-0.3 [facility] Comment on above: Performed By: #### L 501.6901, L500.2500 ####[facility] [address] [place], [address] Beta-hydroxybutyrateOrdered By: Monisha Doe on 08-29-2024 Beta hydroxybutyrate [Mass/Vol] 0.6 mmol/L 0.0-0.3 [facility] Bilirubin Test strip Ql (U)O rdered By: Monisha Doe on 08-29-2024 Bilirubin Ql (U) Negative Negative [facility] CBC W/Diff, Automatedon 08-13 Absolute Lymph 1.32 X10 3/uL Normal 0.83-4.51 [facility] Comment on above: Performed By: #### L 100.0100 ####[facility] [address] [place], [address] Absolute Neut 3.6 X10 3/uL Normal 2.0-7.7 [facility] Comment on above: Performed By: #### L 100.0100 ####[facility] [address] [place], [address] Basophils/100 WBC (Bld) 0.7 % Normal 0-1 [facility] Comment on above: Performed By: #### L 100.0100 ####[facility] [address] [place], [address] Eosinophils/100 WBC (Bld) 3.7 % Normal 0-5 [facility] Comment on above: Performed By: #### L 100.0100 ####[facility] [address] [place], [address] Erythrocyte distribution width (RBC) [Ratio] 12.7 % Normal 11.6-14.6 [facility] Comment on above: Performed By: #### L 100.0100 ####[facility] [address] [place], [address] Hematocrit (Bld) [Volume fraction] 43.6 % Normal 37-47 [facility] Comment on above: Performed By: #### L 100.0100 ####[facility] [address] [place], [address] Hemoglobin (Bld) [Mass/Vol] 15.0 g/dL Normal 12.0-15.0 [facility] Comment on above: Performed By: #### L 100.0100 ####[facility] [address] [place], [address] IG% 0.400 Normal 0.0-0.9 [facility] Comment on above: Result Comment: IG% - Immature Granulocytes (promyelocytes, myelocytes andmetamyelocytes) > 1% indicates that a LEFT SHIFT is Present. Performed By: #### L 100.0100 ####[facility] [address] [place], [address] Lymphocytes/100 WBC (Bld) 23.2 % Normal 19-41 [facility] Comment on above: Performed By: #### L 100.0100 ####[facility] [address] [place], [address] MCH (RBC) [Entitic mass] 28.5 pg Normal 27.0-32.0 [facility] Comment on above: Performed By: #### L 100.0100 ####[facility] [address] [place], [address] MCHC (RBC) [Mass/Vol] 34.4 g/dL Normal 32-36 [facility] Comment on above: Performed By: #### L 100.0100 ####[facility] [address] [place], [address] MCV (RBC) [Entitic vol] 82.9 fL Normal 81-99 [facility] Comment on above: Performed By: #### L 100.0100 ####[facility] [address] [place], [address] Monocytes/100 WBC (Bld) 8.1 % Normal 0-10 [facility] Comment on above: Performed By: #### L 100.0100 ####[facility] [address] [place], [address] Neutrophils/100 WBC (Bld) 63.9 % Normal 47-70 [facility] Comment on above: Performed By: #### L 100.0100 ####[facility] [address] [place], [address] Nucleated RBC (Bld) [#/Vol] 0 10*3/uL Normal 0-5 [facility] Comment on above: Performed By: #### L 100.0100 ####[facility] [address] [place], [address] Platelet mean volume (Bld) [Entitic vol] 11.7 fL Normal 6.2-12.0 [facility] Comment on above: Performed By: #### L 100.0100 ####[facility] [address] [place], [address] Platelets (Bld) [#/Vol] 179 10*3/uL Normal 150-450 [facility] Comment on above: Performed By: #### L 100.0100 ####[facility] [address] [place], [address] RBC (Bld) [#/Vol] 5.26 10*6/uL Normal 4.2-5.4 [facility] Comment on above: Performed By: #### L 100.0100 ####[facility] [address] [place], [address] RDW SD 38.2 fl Normal 35.1-43.9 [facility] Comment on above: Performed By: #### L 100.0100 ####[facility] [address] [place], [address] WBC (Bld) [#/Vol] 5.7 10*3/uL Normal 4.4-11.0 [facility] Comment on above: Performed By: #### L 100.0100 ####[facility] [address] [place], [address] Carbon dioxide, total [Moles /volume] in Central venous bloodOrdered By: Monisha Doe on 08-29-2024 CO2 [Moles/Vol] 24.5 mmol/L 21.0-32.0 [facility] Chest PA and Lateralon 08-29 Chest PA and Lateral Normal [facility] Chloride assayOrdered By: Eva Doe on 08-29-2024 Chloride [Moles/Vol] 102 mmol/L 98-108 [facility] Emergency Department Summary on 08-29-2024 Emergency Department Summary Normal [facility] Eosinophil percentageOrdered By: Monisha Doe on 08-29-2024 Eosinophils/100 WBC (Bld) 3.7 % 0-5 [facility] Erythrocyte distribution wid th ratioOrdered By: Monisha Doe on 08-29-2024 Erythrocyte distribution width (RBC) [Ratio] 12.7 % 11.6-14.6 [facility] Erythrocyte distribution wid th standard deviationOrdered By: Monisha Doe on 08-29-2024 Erythrocyte distribution width (RBC) [Ratio] 38.2 fl 35.1-43.9 [facility] Glomerular filtration rate ( GFR) estimation/1.73 sq m using serum, plasma, or whole bOrdered By: Monisha Doe on 08-29-2024 GFR/1.73 sq M.predicted among non-blacks MDRD (S/P/Bld) [Vol rate/Area] 106 mL/min/{1.73_m2} >60 [facility] Comment on above: mL/min/1.73m2 CKD-EP I Creatinine Equation (2020) [facility] de[facility]dered By: Beau Gonzalez on 08-29-2024 Glucose [Mass/Vol] 317 mg/dL High 74-106 [facility] Comment on above: MANAGEMENT OF PATIEN T CARE PER NURSING PROTOCOL Hematocrit Auto (Bld) [Volum e fraction]Ordered By: Monisha Doe on 08-29-2024 Hematocrit (Bld) [Volume fraction] 43.6 % 37-47 [facility] Hemoglobin measurementOrdere d By: Monisha Doe on 08-29-2024 Hemoglobin (Bld) [Mass/Vol] 15.0 g/dL 12.0-15.0 [facility] Immature granulocytes/100 WB C Auto (Bld)Ordered By: Monisha Doe on 08-29-2024 Immature granulocytes/100 WBC (Bld) 0.400 % 0.0-0.9 [facility] Comment on above: IG% - Immature Granu locytes (promyelocytes, myelocytes and metamyelocytes) > 1% indicates that a LEFT SHIFT is Present. Ketones Test strip Ql (U)Ord ered By: Monisha Doe on 08-29-2024 Ketones Ql (U) Negative Negative [facility] MCV (mean corpuscular volume ) determinationOrdered By: Monisha Doe on 08-29-2024 MCV (RBC) [Entitic vol] 82.9 fL 81-99 [facility] Mean corpuscular hemoglobin (MCH) determinationOrdered By: Monisha Doe on 08-29-2024 MCH (RBC) [Entitic mass] 28.5 pg 27.0-32.0 [facility] Mean corpuscular hemoglobin concentration (MCHC) determinationOrdered By: Monisha Doe on 08-29-2024 MCHC (RBC) [Mass/Vol] 34.4 g/dL 32-36 [facility] Mean platelet volume determi nationOrdered By: Monisha Doe on 08-29-2024 Platelet mean volume (Bld) [Entitic vol] 11.7 fL 6.2-12.0 [facility] Microscopic analysis of urin e for red blood cells (RBC)Ordered By: Monisha Doe on 08-29-2024 Microscopic analysis of urine for red blood cells (RBC) 0-5 SEEN /hpf 0-5 [facility] Monocyte percentageOrdered B y: Monisha Doe on 08-29-2024 Monocytes/100 WBC (Bld) 8.1 % 0-10 [facility] Mucus LM Ql (Urine sed)Order ed By: Monisha Doe on 08-29-2024 Mucus Ql (Urine sed) 0 SEEN /hpf [facility] Neutrophil percentageOrdered By: Monisha Doe on 08-29-2024 Neutrophils/100 WBC (Bld) 63.9 % 47-70 [facility] Nitrite Test strip Ql (U)Ord ered By: Monisha Doe on 08-29-2024 Nitrite Ql (U) Negative Negative [facility] Nucleated red blood cell per centageOrdered By: Monisha Doe on 08-29-2024 Nucleated RBC/100 WBC (Bld) [Ratio] 0 % 0-5 [facility] Platelet countOrdered By: Eva Doe on 08-29-2024 Platelets (Bld) [#/Vol] 179 10*3/uL 150-450 [facility] Potassium measurement (mass/ volume)Ordered By: Monisha Doe on 08-29-2024 Potassium (Unsp spec) [Mass/Vol] 3.4 mmol/L 3.3-5.1 [facility] Comment on above: Hemolysis present, R esults could be affected. Protein Test strip Ql (U)Ord ered By: Monisha Doe on 08-29-2024 Protein Ql (U) 15 mg/dl High Negative [facility] RBC Auto (Bld) [#/Vol]Ordere d By: Monisha Doe on 08-29-2024 RBC (Bld) [#/Vol] 5.26 10*6/uL 4.2-5.4 [facility] Serum creatinine measurement (mass/volume)Ordered By: Monisha Doe on 08-29-2024 Creatinine [Mass/Vol] 0.63 mg/dL Low 0.70-1.20 [facility] Serum glucose measurement (m ass/volume)Ordered By: Monisha Doe on 08-29-2024 Glucose [Mass/Vol] 332 mg/dL High 70-99 [facility] Serum or plasma calcium anna urement (mass/volume)Ordered By: Monisha Doe on 08-29-2024 Calcium [Mass/Vol] 9.2 mg/dL 7.6-11.0 [facility] Serum or plasma urea nitroge n measurement (mass/volume)Ordered By: Monisha Doe on 08-29-2024 Urea nitrogen [Mass/Vol] 11 mg/dL 4-19 [facility] Sodium levelOrdered By: Serge Doe on 08-29-2024 Sodium [Moles/Vol] 139 mmol/L 133-145 [facility] Squamous epithelial cells de tection in urine sediment by light microscopyOrdered By: Monisha Doe on 08-29-2024 Epithelial cells.squamous LM Ql (Urine sed) 25-50 SEEN /hpf 5-10 [facility] Urinalysis, Completeon 08-29 BACTERIA 2+ /hpf Normal None Seen [facility] Comment on above: Order Comment: CLEAN CATCH Performed By: #### L 400.0001 ####[facility] [address] [place], [place], [address] YEAST 1+ /hpf Normal None Seen [facility] Comment on above: Order Comment: CLEAN CATCH Performed By: #### L 400.0001 ####[facility] [address] [place], [address] EPI,SQUAMOUS 25-50 SEEN Normal 5-10 [facility] Comment on above: Order Comment: CLEAN CATCH Performed By: #### L 400.0001 ####[facility] [address] [place], [address] RBC 0-5 SEEN Normal 0-5 [facility] Comment on above: Order Comment: CLEAN CATCH Performed By: #### L 400.0001 ####[facility] [address] [place], [address] WBC 25-50 SEEN Normal 0-5 [facility] Comment on above: Order Comment: CLEAN CATCH Performed By: #### L 400.0001 ####[facility] [address] [place], [address] Mucus Ql (Urine sed) 0 SEEN Normal [facility] Comment on above: Order Comment: CLEAN CATCH Performed By: #### L 400.0001 ####[facility] [address] [place], [address] Urine clarityOrdered By: Michael Doe on 08-29-2024 Clarity (U) Cloudy Clear [facility] Urine color determinationOrd ered By: Monisha Doe on 08-29-2024 Color (U) Yellow Yellow [facility] Urine cultureOrdered By: Hugh Gonzalez on 08-29-2024 Bacteria identified Cx Nom (U) Mixed Gram Pos & Gram Neg Org Abnormal [facility] Urine glucose detectionOrder ed By: Monisha Doe on 08-29-2024 Glucose Ql (U) 1000 mg/dl High Normal [facility] Urine leukocyte esterase det ection by dipstickOrdered By: Monisha Doe on 08-29-2024 Leukocyte esterase Test strip Ql (U) 500 /ul High Negative [facility] Urine pHOrdered By: Jackie Doe on 08-29-2024 pH (U) 6.0 [pH] 5.0 - 8.0 [facility] Urine sediment bacteria coun t by microscopy (number/high power field)Ordered By: Monisha Doe on 08-29-2024 Bacteria LM.HPF (Urine sed) [#/Area] 2 /[HPF] None Seen [facility] Urine sediment yeast count b y microscopy (number/high powered field)Ordered By: Monisha Doe on 08-29-2024 Yeast LM.HPF (Urine sed) [#/Area] 1 /[HPF] None Seen [facility] Urine specific gravity measu rementOrdered By: Monisha Doe on 08-29-2024 Specific gravity (U) [Rel density] 1.010 1.002-1.030 [facility] Urine urobilinogen measureme ntOrdered By: Monisha Doe on 08-29-2024 Urobilinogen Ql (U) Normal mg/dl Normal [facility] White blood cell (WBC) count Ordered By: Monisha Doe on 08-29-2024 WBC (Bld) [#/Vol] 5.7 10*3/uL 4.4-11.0 [facility] White blood cell countOrdere d By: Monisha Doe on 08-29-2024 White blood cell count 25-50 SEEN /hpf 0-5 [facility] ECG 12 leadOrdered By: Josiah Bustillos on 08-17-2024 Atrial Rate 138 BPM [facility] Work Phone: [phone] P Sheldon 47 degrees [facility] Work Phone: [phone] P Offset 200 ms [facility] Work Phone: [phone] P Onset 151 ms [facility] Work Phone: [phone] [place] Interval 146 ms [facility] Work Phone: [phone] Q Onset 224 ms [facility] Work Phone: [phone] QRS Count 23 beats [facility] Work Phone: [phone] QRS Duration 72 ms [facility] Work Phone: [phone] QT Interval 280 ms [facility] Work Phone: [phone] QTC Calculation(Bazett) 424 ms [facility] Work Phone: QTC Fredericia 369 ms [facility] Work Phone: [phone] R Sheldon 54 degrees [facility] Work Phone: [phone] T Sheldon 93 degrees [facility] Work Phone: [phone] T Offset 364 ms [facility] Work Phone: [phone] Ventricular Rate 138 BPM [facility]: [phone] [facility] Work Phone: [phone] ECG 12 leadon 08-17-2024 Sinus tachycardia Septal infarct (cited on or before 29-JUN-2024) Abnormal ECG Confirmed by Сергей Bustillos ([id number]) on 08/17/2024 4:33:25 PM Сергей Meade MD - 08/17/2024 Sinus tachycardia Septal infarct (cited on or before 29-JUN-2024) Abnormal ECG Confirmed by Сергей Bustillos ([id number]) on 08/17/2024 4:33:25 PM [facility] Work Phone: Basic Metabolic Panelon Anion gap [Moles/Vol] 10 mmol/L Normal 9-15 [facility] Comment on above: Order Comment: CALL doctor [id number] tel. [phone], FAX [phone] CALL doctor [id number] tel. [phone], FAX [phone] Performed By: #### B MP #### [facility] [address] [place] [address] Calcium [Mass/Vol] 9.1 mg/dL Normal 8.5-9.9 [facility] Comment on above: Order Comment: CALL doctor [id number] tel. [phone], FAX [phone] CALL doctor [id number] tel. [phone], FAX [phone] Performed By: #### B MP #### [facility] [address] [place] [address] Chloride [Moles/Vol] 101 mmol/L Normal 95-107 [facility] Comment on above: Order Comment: CALL doctor [id number] tel. [phone], FAX [phone] CALL doctor [id number] tel. [phone], FAX [phone] Performed By: #### B MP #### [facility] [address] [place] [address] CO2 [Moles/Vol] 29 mmol/L Normal 20-31 [facility] Comment on above: Order Comment: CALL doctor [id number] tel. [phone], FAX [phone] CALL doctor [id number] tel. [phone], FAX [phone] Performed By: #### B MP #### [facility] [address] [place] [address] Creatinine [Mass/Vol] 0.68 mg/dL Normal 0.50-0.90 [facility] Comment on above: Order Comment: CALL doctor [id number] tel. [phone], FAX [phone] CALL doctor [id number] tel. [phone], FAX [phone] Performed By: #### B MP #### [facility] [address] [place] [address] GFR >90.0 Normal >60 [facility] Comment on above: Order Comment: CALL doctor [id number] tel. [phone], FAX [phone] CALL doctor [id number] tel. [phone], FAX [phone] Result Comment: Mirela atric calculator link https://www.kidney.org/professionals/kdoqi/gfr_calculatorped Effective Jan 15, 2022 These results are not intended for use in patients <18 years of age. eGFR results are calculated without a race factor using the 2020 CKD-EPI equation. Careful clinical correlation is recommended, particularly when comparing to results calculated using previous equations. The CKD-EPI equation is less accurate in patients with extremes of muscle mass, extra-renal metabolism of creatinine, excessive creatinine ingestion, or following therapy that affects renal tubular secretion. Performed By: #### B MP #### [facility] [address] [place] [address] Glucose [Mass/Vol] 429 mg/dL Critically high 70-99 [facility] Comment on above: Order Comment: CALL doctor [id number] tel. [phone], FAX [phone] CALL doctor [id number] tel. [phone], FAX [phone] Performed By: #### B MP #### [facility] [facility] [address] [place] [address] Potassium [Moles/Vol] 4.6 mmol/L Normal 3.4-4.9 [facility] Comment on above: Order Comment: CALL doctor [id number] tel. [phone], FAX [phone] CALL doctor L0314 tel. [phone], FAX [phone] Performed By: #### B MP #### [facility] [address] [place] [address] Sodium [Moles/Vol] 140 mmol/L Normal 135-144 [facility] Comment on above: Order Comment: CALL doctor [id number] tel. [phone], FAX [phone] CALL doctor L0314 tel. [phone], FAX [phone] Performed By: #### B MP #### [facility] [address] [place] [address] Urea nitrogen [Mass/Vol] 19 mg/dL Normal 6-20 [facility] Comment on above: Order Comment: CALL doctor [id number] tel. [phone], FAX [phone] CALL doctor L0314 tel. [phone], FAX [phone] Performed By: #### B MP #### [facility] [address] [place] [address] CBC With Platelet and Differ entialon 07-17-2024 Basophils (Bld) [#/Vol] 0.0 10*3/uL Normal 0.0-0.2 [facility] Comment on above: Order Comment: CALL doctor [id number] tel. [phone], FAX [phone] CALL doctor L0314 tel. [phone], FAX [phone] Performed By: #### C BCWD #### [facility] [address] [place] [address] Basophils/100 WBC (Bld) 0.9 % Normal [facility] Comment on above: Order Comment: CALL doctor L0314 tel. [phone], FAX [phone] CALL doctor L0314 tel. [phone], FAX [phone] Performed By: #### C BCWD #### [facility] [address] [place] [address] Eosinophils (Bld) [#/Vol] 0.1 10*3/uL Normal 0.0-0.7 [facility] Comment on above: Order Comment: CALL doctor [id number] tel. [phone], FAX [phone] CALL doctor L0314 tel. [phone], FAX [phone] Performed By: #### C BCWD #### [facility] [address] [place] [address] Eosinophils/100 WBC (Bld) 2.4 % Normal [facility] Comment on above: Order Comment: CALL doctor L0314 tel. [phone], FAX [phone] CALL doctor L0314 tel. [phone], FAX [phone] Performed By: #### C BCWD #### [facility] [address] [place] [address] Erythrocyte distribution width (RBC) [Ratio] 13.3 % Normal 11.5-14.5 [facility] Comment on above: Order Comment: CALL doctor L0314 tel. [phone], FAX [phone] CALL doctor L0314 tel. [phone], FAX [phone] Performed By: #### C BCWD #### [facility] [address] [place] [address] Hematocrit (Bld) [Volume fraction] 39.9 % Normal 37.0-47.0 [facility] Comment on above: Order Comment: CALL doctor L0314 tel. [phone], FAX [phone] CALL doctor L0314 tel. [phone], FAX [phone] Performed By: #### C BCWD #### [facility] [address] [place] [address] Hemoglobin (Bld) [Mass/Vol] 12.8 g/dL Normal 12.0-16.0 [facility] Comment on above: Order Comment: CALL doctor L0314 tel. [phone], FAX [phone] CALL doctor L0314 tel. [phone], FAX [phone] Performed By: #### C BCWD #### [facility] [address] [place] [address] Lymphocytes (Bld) [#/Vol] 1.2 10*3/uL Normal 1.0-4.8 [facility] Comment on above: Order Comment: CALL doctor L0314 tel. [phone], FAX [phone] CALL doctor L0314 tel. [phone], FAX [phone] Performed By: #### C BCWD #### [facility] [address] [place] [address] Lymphocytes/100 WBC (Bld) 27.1 % Normal [facility] Comment on above: Order Comment: CALL doctor L0314 tel. [phone], FAX [phone] CALL doctor L0314 tel. [phone], FAX [phone] Performed By: #### C BCWD #### [facility] [address] [place] [address] MCH (RBC) [Entitic mass] 27.7 pg Normal 27.0-31.3 [facility] Comment on above: Order Comment: CALL doctor L0314 tel. [phone], FAX [phone] CALL doctor L0314 tel. [phone], FAX [phone] Performed By: #### C BCWD #### [facility] [address] [place] [address] MCHC 32.1 % Low 33.0-37.0 [facility] Comment on above: Order Comment: CALL doctor L0314 tel. [phone], FAX [phone] CALL doctor L0314 tel. [phone], FAX [phone] Performed By: #### C BCWD #### [facility] [address] [place] [address] MCV (RBC) [Entitic vol] 86.4 fL Normal 79.4-94.8 [facility] Comment on above: Order Comment: CALL doctor L0314 tel. [phone], FAX [phone] CALL doctor L0314 tel. [phone], FAX [phone] Performed By: #### C BCWD #### [facility] [address] [place] [address] Monocytes (Bld) [#/Vol] 0.5 10*3/uL Normal 0.2-0.8 [facility] Comment on above: Order Comment: CALL doctor L0314 tel. [phone], FAX [phone] CALL doctor L0314 tel. [phone], FAX [phone] Performed By: #### C BCWD #### [facility] [address] [place] [address] Monocytes/100 WBC (Bld) 11.8 % Normal [facility] Comment on above: Order Comment: CALL doctor L0314 tel. [phone], FAX [phone] CALL doctor L0314 tel. [phone], FAX [phone] Performed By: #### C BCWD #### [facility] [address] [place] [address] Neutrophils (Bld) [#/Vol] 2.5 10*3/uL Normal 1.4-6.5 [facility] Comment on above: Order Comment: CALL doctor L0314 tel. [phone], FAX [phone] CALL doctor L0314 tel. [phone], FAX [phone] Performed By: #### C BCWD #### [facility] [address] [place] [address] Neutrophils/100 WBC (Bld) 56.2 % Normal [facility] Comment on above: Order Comment: CALL doctor L0314 tel. [phone], FAX [phone] CALL doctor L0314 tel. [phone], FAX [phone] Performed By: #### C BCWD #### [facility] [address] [place] [address] Platelets (Bld) [#/Vol] 283 10*3/uL Normal 130-400 [facility] Comment on above: Order Comment: CALL doctor L0314 tel. [phone], FAX [phone] CALL doctor L0314 tel. [phone], FAX [phone] Performed By: #### C BCWD #### [facility] [address] [place] [address] RBC (Bld) [#/Vol] 4.62 10*6/uL Normal 4.20-5.40 [facility] Comment on above: Order Comment: CALL doctor L0314 tel. [phone], FAX [phone] CALL doctor L0314 tel. [phone], FAX [phone] Performed By: #### C BCWD #### [facility] [address] [place] [address] WBC (Bld) [#/Vol] 4.5 10*3/uL Low 4.8-10.8 [facility] Comment on above: Order Comment: CALL doctor L0314 tel. [phone], FAX [phone] CALL doctor L0314 tel. [phone], FAX [phone] Performed By: #### C BCWD #### [facility] [address] [place] [address] Magnesiumon 07-17-2024 Magnesium [Mass/Vol] 2.0 mg/dL Normal 1.7-2.4 [facility] Comment on above: Order Comment: CALL doctor L0314 tel. [phone], FAX [phone] CALL doctor L0314 tel. [phone], FAX [phone] Performed By: #### M G #### [facility] [address] [place] [address] Glucose Test strip manual (B ld) [Mass/Vol]on 07-13-2024 Glucose [Mass/Vol] 252 mg/dL High [address] [place] [address] Comment on above: Result Comment: GOLD CHO Performed By: #### 2 4323-8 #### CHITO SIDDIQI (16616) [facility] ([facility]) [address] [place] [address] Glucose [Mass/Vol] 260 mg/dL High [address] [place] [address] Comment on above: Performed By: #### 2 4323-8 #### CHITO SIDDIQI (19208) [facility] ([facility]) [address] [place] [address] Glucose Test strip manual (B ld) [Mass/Vol]on 07-12-2024 Glucose [Mass/Vol] 351 mg/dL High [address] [place] [address] Comment on above: Performed By: #### 2 4323-8 #### CHITO SIDDIQI (66959) [facility] ([facility]) [address] [place] [address] Glucose [Mass/Vol] 246 mg/dL High [address] [place] [address] Comment on above: Performed By: #### 2 4323-8 #### CHITO SIDDIQI (96177) [facility] ([facility]) [address] [place] [address] Glucose [Mass/Vol] 347 mg/dL High 74-99 [facility] Comment on above: Performed By: #### 2 4323-8 #### CHITO SIDDIQI (17091) [facility] ([facility]) [address] [place] [address] Glucose [Mass/Vol] 250 mg/dL High 74-99 [facility] Comment on above: Performed By: #### 2 4323-8 #### CHITO SIDDIQI (58307) [facility] ([facility]) [address] [place] [address] Basic metabolic 2000 panelon 07-11-2024 Anion gap [Moles/Vol] 11 mmol/L Normal 10-[address] [facility] Comment on above: Performed By: #### 2 4323-8 #### CHITO SIDDIQI (54560) [facility] ([facility]) [address] [place] [address] Calcium [Mass/Vol] 8.5 mg/dL Low 8.6-10.3 [facility] Comment on above: Performed By: #### 2 4323-8 #### CHITO SIDDIQI (19161) [facility] ([facility]) [address] [place] [address] Chloride [Moles/Vol] 104 mmol/L Normal 98-107 [facility] Comment on above: Performed By: #### 2 4323-8 #### CHITO SIDDIQI (33195) [facility] ([facility]) [address] [place] [address] CO2 [Moles/Vol] 26 mmol/L Normal 21-32 [facility] Comment on above: Performed By: #### 2 4323-8 #### CHITO SIDDIQI (87799) [facility] ([facility]) [address] [place] [address] Creatinine [Mass/Vol] 0.45 mg/dL Low 0.50-1.[address] [facility] Comment on above: Performed By: #### 2 4323-8 #### CHITO SIDDIQI (70555) [facility] ([facility]) [address] [place] [address] GFR/1.73 sq M.predicted MDRD (S/P/Bld) [Vol rate/Area] mL/min/{1.73_m2} Normal >60 [facility] Comment on above: Result Comment: Calc ulations of estimated GFR are performed using the 2020 CKD-EPI Study Refit equation without the race variable for the IDMS-Traceable creatinine methods. https://jasn.asnjournals.org/content/early//ASN.647656 8999 Performed By: #### 2 4323-8 #### CHITO SIDDIQI (22221) [facility] ([facility]) [address] [place] [address] Glucose [Mass/Vol] 251 mg/dL High 74-99 [facility] Comment on above: Performed By: #### 2 4323-8 #### CHITO SIDDIQI (99838) [facility] ([facility]) [address] [place] [address] Potassium [Moles/Vol] 4.2 mmol/L Normal 3.5-5.[address] [facility] Comment on above: Result Comment: MILD HEMOLYSIS DETECTED. The result may be falsely elevated due to hemolysis or other interferents. Clinical correlation is recommended. Repeat testing may be considered. Performed By: #### 2 4323-8 #### CHITO SIDDIQI (41801) [facility] ([facility]) [address] [place] [address] Sodium [Moles/Vol] 137 mmol/L Normal 136-145 [facility] Comment on above: Performed By: #### 2 4323-8 #### CHITO SIDDIQI (26797) [facility] ([facility]) [address] [place] [address] Urea nitrogen [Mass/Vol] 19 mg/dL Normal 6-23 [facility] Comment on above: Performed By: #### 2 4323-8 #### CHITO SIDDIQI (62251) [facility] ([facility]) [address] [place] [id number] CBC panel Auto (Bld)on 07-11 Erythrocyte distribution width (RBC) [Ratio] 13.3 % Normal 11.5-14.5 [facility] Comment on above: Performed By: #### 2 4323-8 #### CHITO SIDDIQI (04644) [facility] ([facility]) [address] [place] [address] Hematocrit (Bld) [Volume fraction] 38.3 % Normal 36.0-46.0 [facility] Comment on above: Performed By: #### 2 4322-8 #### CHITO SIDDIQI (42676) [facility] ([facility]) [address] [place] [address] Hemoglobin (Bld) [Mass/Vol] 12.1 g/dL Normal 12.0-16.0 [facility] Comment on above: Performed By: #### 2 4322-8 #### CHITO SIDDIQI (16325) [facility] ([facility]) [address] [place] [address] MCH (RBC) [Entitic mass] 27.3 pg Normal 26.0-34.0 [facility] Comment on above: Performed By: #### 2 4322-8 #### CHITO SIDDIQI (21134) [facility] ([facility]) [address] [place] [address] MCHC (RBC) [Mass/Vol] 31.6 g/dL Low 32.0-36.[address] [facility] Comment on above: Performed By: #### 2 4322-8 #### CHITO SIDDIQI (37312) [facility] ([facility]) [address] [place] [address] MCV (RBC) [Entitic vol] 87 fL Normal 80-100 [facility] Comment on above: Performed By: #### 2 3-8 #### CHITO SIDDIQI (11631) [facility] ([facility]) [address] [place] [address] Nucleated RBC/100 WBC (Bld) [Ratio] 0.0 /100 WBCs Normal 0.0-0.0 [facility] Comment on above: Performed By: #### 2 4323-8 #### CHITO SIDDIQI (19398) [facility] ([facility]) [address] [place] [address] Platelets (Bld) [#/Vol] 277 x10*3/uL Normal 150-450 [facility] Comment on above: Performed By: #### 2 4323-8 #### CHITO SIDDIQI (30289) [facility] ([facility]) [address] [place] [address] RBC (Bld) [#/Vol] 4.43 x10*6/uL Normal 4.00-5.20 [facility] Comment on above: Performed By: #### 2 432-8 #### CHITO SIDDIQI (17917) [facility] ([facility]) [address] [place] [address] WBC (Bld) [#/Vol] 8.5 x10*3/uL Normal 4.4-11.3 [facility] Comment on above: Performed By: #### 2 4323-8 #### CHITO SIDDIQI (36971) [facility] ([facility]) [address] [place] [address] Glucose Test strip manual (B ld) [Mass/Vol]on 07-11-2024 Glucose [Mass/Vol] 373 mg/dL High 7499 [facility] Comment on above: Performed By: #### 2 4323-8 #### CHITO SIDDIQI (64141) [facility] ([facility]) [address] [place] [address] Glucose [Mass/Vol] 237 mg/dL High [address] [place] [address] Comment on above: Performed By: #### 2 4323-8 #### CHITO SIDDIQI (03522) [facility] ([facility]) [address] [place] [address] Glucose [Mass/Vol] 296 mg/dL High [address] [place] [address] Comment on above: Performed By: #### 2 4323-8 #### CHITO SIDDIQI (70469) [facility] ([facility]) [address] [place] [address] Glucose [Mass/Vol] 245 mg/dL High [address] [place] [address] Comment on above: Performed By: #### 2 4323-8 #### CHITO SIDDIQI (88015) [facility] ([facility]) [address] [place] [address] Glucose Test strip manual (B ld) [Mass/Vol]on 07-10-2024 Glucose [Mass/Vol] 335 mg/dL High [address] [place] [address] Comment on above: Performed By: #### 2 4322-8 #### CHITO SIDDIQI (10255) [facility] ([facility]) [address] [place] [address] Glucose [Mass/Vol] 255 mg/dL High [address] [place] [address] Comment on above: Performed By: #### 2 3-8 #### CHITO SIDDIQI (73906) [facility] ([facility]) [address] [place] [address] Glucose [Mass/Vol] 288 mg/dL High [address] [place] [address] Comment on above: Performed By: #### 2 4323-8 #### CHITO SIDDIQI (50151) [facility] ([facility]) [address] [place] [address] Glucose [Mass/Vol] 267 mg/dL High [address] [place] [address] Comment on above: Performed By: #### 2 3-8 #### CHITO SIDDIQI (60000) [facility] ([facility]) [address] [place] [address] CBC panel Auto (Bld)on 07-09 Erythrocyte distribution width (RBC) [Ratio] 13.6 % Normal 11.5-14.5 [facility] Comment on above: Performed By: #### 2 432-8 #### CHITO SIDDIQI (30944) [facility] ([facility]) [address] [place] [address] Hematocrit (Bld) [Volume fraction] 40.9 % Normal 36.0-46.0 [facility] Comment on above: Performed By: #### 2 4322-8 #### CHITO SIDDIQI (97893) [facility] ([facility]) [address] [place] [id number] Hemoglobin (Bld) [Mass/Vol] 13.4 g/dL Normal 12.0-16.0 [facility] Comment on above: Performed By: #### 2 4322-8 #### CHITO SIDDIQI (58478) [facility] ([facility]) [address] [place] [address] MCH (RBC) [Entitic mass] 28.2 pg Normal 26.0-34.0 [facility] Comment on above: Performed By: #### 2 4322-8 #### CHITO SIDDIQI (04780) [facility] ([facility]) [address] [place] [address] MCHC (RBC) [Mass/Vol] 32.8 g/dL Normal 32.0-36.[address] [facility] Comment on above: Performed By: #### 2 4322-8 #### CHITO SIDDIQI (04552) [facility] ([facility]) [address] [place] [address] MCV (RBC) [Entitic vol] 86 fL Normal 80-100 [facility] Comment on above: Performed By: #### 2 4322-8 #### CHITO SIDDIQI (67784) [facility] ([facility]) [address] [place] [address] Nucleated RBC/100 WBC (Bld) [Ratio] 0.0 /100 WBCs Normal 0.0-0.0 [facility] Comment on above: Performed By: #### 2 432-8 #### CHITO SIDDIQI (64501) [facility] ([facility]) [address] [place] [id number] Platelets (Bld) [#/Vol] 304 x10*3/uL Normal 150-450 [facility] Comment on above: Performed By: #### 2 4323-8 #### CHITO SIDDIQI (93495) [facility] ([facility]) [address] [place] [address] RBC (Bld) [#/Vol] 4.76 x10*6/uL Normal 4.00-5.20 [facility] Comment on above: Performed By: #### 2 4323-8 #### CHITO SIDDIQI (97268) [facility] ([facility]) [address] [place] [address] WBC (Bld) [#/Vol] 13.4 x10*3/uL High 4.4-11.3 [facility] Comment on above: Performed By: #### 2 4323-8 #### CHITO SIDDIQI (18544) [facility] ([facility]) [address] [place] [address] Comprehensive metabolic 2000 panelon 07-09-2024 Albumin BCP dye [Mass/Vol] 3.1 g/dL Low 3.4-5.0 [facility] Comment on above: Performed By: #### 2 4323-8 #### CHITO SIDDIQI (43724) [facility] ([facility]) [address] [place] [address] ALP [Catalytic activity/Vol] 246 U/L High 33-110 [facility] Comment on above: Performed By: #### 2 4323-8 #### CHITO SIDDIQI (28158) [facility] ([facility]) [address] [place] [address] ALT With P-5'-P [Catalytic activity/Vol] 41 U/L Normal 7-45 [facility] Comment on above: Result Comment: Camila ents treated with Sulfasalazine may generate falsely decreased results for ALT. Performed By: #### 2 4323-8 #### CHITO SIDDIQI (58414) [facility] ([facility]) [address] [place] [id number] Anion gap [Moles/Vol] 10 mmol/L Normal 10-[address] [facility] Comment on above: Performed By: #### 2 4323-8 #### CHITO SIDDIQI (92028) [facility] ([facility]) [address] [place] [address] AST With P-5'-P [Catalytic activity/Vol] 22 U/L Normal 9-39 [facility] Comment on above: Performed By: #### 2 4323-8 #### CHITO SIDDIQI (90455) [facility] ([facility]) [address] [place] [address] Bilirubin [Mass/Vol] 0.5 mg/dL Normal 0.0-1.2 [facility] Comment on above: Performed By: #### 2 4323-8 #### CHITO SIDDIQI (44786) [facility] ([facility]) [address] [place] [address] Calcium [Mass/Vol] 8.9 mg/dL Normal 8.6-10.3 [facility] Comment on above: Performed By: #### 2 432-8 #### CHITO SIDDIQI (08552) [facility] ([facility]) [address] [place] [address] Chloride [Moles/Vol] 101 mmol/L Normal 98-107 [facility] Comment on above: Performed By: #### 2 4323-8 #### CHITO SIDDIQI (30344) [facility] ([facility]) [address] [place] [address] CO2 [Moles/Vol] 30 mmol/L Normal 21-32 [facility] Comment on above: Performed By: #### 2 4323-8 #### CHITO SIDDIQI (56578) [facility] ([facility]) [address] [place] [address] Creatinine [Mass/Vol] 0.43 mg/dL Low 0.50-1.[address] [facility] Comment on above: Performed By: #### 2 4323-8 #### CHITO SIDDIQI (43865) [facility] ([facility]) [address] [place] [address] GFR/1.73 sq M.predicted MDRD (S/P/Bld) [Vol rate/Area] mL/min/{1.73_m2} Normal >60 [facility] Comment on above: Result Comment: Calc ulations of estimated GFR are performed using the 2020 CKD-EPI Study Refit equation without the race variable for the IDMS-Traceable creatinine methods. https://jasn.asnjournals.org/content/early/ASN.689017 0227 Performed By: #### 2 4323-8 #### CHITO SIDDIQI (66728) [facility] ([facility]) [address] [place] [address] Glucose [Mass/Vol] 286 mg/dL High 74-99 [facility] Comment on above: Performed By: #### 2 4323-8 #### CHITO SIDDIQI (93200) [facility] ([facility]) [address] [place] [address] Potassium [Moles/Vol] 4.1 mmol/L Normal 3.5-5.[address] [facility] Comment on above: Performed By: #### 2 4323-8 #### CHITO SIDDIQI (69809) [facility] ([facility]) [address] [place] [address] Protein [Mass/Vol] 6.3 g/dL Low 6.4-8.2 [facility] Comment on above: Performed By: #### 2 4323-8 #### CHITO SIDDIQI (51161) [facility] ([facility]) [address] [place] [address] Sodium [Moles/Vol] 137 mmol/L Normal 136-145 [facility] Comment on above: Performed By: #### 2 4323-8 #### CHITO SIDDIQI (36641) [facility] ([facility]) [address] [place] [address] Urea nitrogen [Mass/Vol] 22 mg/dL Normal 6-23 [facility] Comment on above: Performed By: #### 2 4323-8 #### CHITO SIDDIQI (86329) [facility] ([facility]) [address] [place] [id number] Glucose Test strip manual (B ld) [Mass/Vol]on 07-09-2024 Glucose [Mass/Vol] 277 mg/dL High [address] [place] [address] Comment on above: Performed By: #### 2 4323-8 #### CHITO SIDDIQI ([id number]) [facility] ([facility]) [address] [id number] Glucose [Mass/Vol] 243 mg/dL High [address] [place] [address] Comment on above: Performed By: #### 2 4322-8 #### CHITO SIDDIQI ([id number]) [facility] ([facility]) [address] [id number] Glucose [Mass/Vol] 254 mg/dL High [address] [place] [address] Comment on above: Performed By: #### 2 4322-8 #### CHITO SIDDIQI ([id number]) [facility] ([facility]) [address] [id number] Glucose [Mass/Vol] 283 mg/dL [address] Comment on above: Performed By: #### 2 4322-8 #### CHITO SIDDIQI ([id number]) [facility] ([facility]) [address] [id number] CBC panel Auto (Bld)on 07-08 Erythrocyte distribution width (RBC) [Ratio] 13.8 % Normal 11.5-14.5 [facility] Comment on above: Performed By: #### 2 3-8 #### CHITO SIDDIQI ([id number]) [facility] ([facility]) [address] [id number] Hematocrit (Bld) [Volume fraction] 42.3 % Normal 36.0-46.0 [facility] Comment on above: Performed By: #### 2 3-8 #### CHITO SIDDIQI ([id number]) [facility] ([facility]) [address] [place] [address] Hemoglobin (Bld) [Mass/Vol] 13.4 g/dL Normal 12.0-16.0 [facility] Comment on above: Performed By: #### 2 432-8 #### CHITO SIDDIQI ([id number]) [facility] ([facility]) [address] [place] [address] MCH (RBC) [Entitic mass] 27.8 pg Normal 26.0-34.0 [facility] Comment on above: Performed By: #### 2 4322-8 #### CHITO SIDDIQI (19066) [facility] ([facility]) [address] [place] [address] MCHC (RBC) [Mass/Vol] 31.7 g/dL Low 32.0-36.[address] [facility] Comment on above: Performed By: #### 2 4322-8 #### CHITO SIDDIQI ([id number]) [facility] ([facility]) [address] [place] [address] MCV (RBC) [Entitic vol] 88 fL Normal 80-100 [facility] Comment on above: Performed By: #### 2 4322-8 #### CHITO SIDDIQI (05164) [facility] ([facility]) [address] [place] [address] Nucleated RBC/100 WBC (Bld) [Ratio] 0.0 /100 WBCs Normal 0.0-0.0 [facility] Comment on above: Performed By: #### 2 3-8 #### CHITO SIDDIQI (43540) [facility] ([facility]) [address] [place] [address] Platelets (Bld) [#/Vol] 307 x10*3/uL Normal 150-450 [facility] Comment on above: Performed By: #### 2 3-8 #### CHITO SIDDIQI (21573) [facility] ([facility]) [address] [place] [address] RBC (Bld) [#/Vol] 4.82 x10*6/uL Normal 4.00-5.20 [facility] Comment on above: Performed By: #### 2 4323-8 #### CHITO SIDDIQI (95607) [facility] ([facility]) [address] [place] [address] WBC (Bld) [#/Vol] 17.9 x10*3/uL High 4.4-11.3 [facility] Comment on above: Performed By: #### 2 4323-8 #### CHITO SIDDIQI (82445) [facility] ([facility]) [address] [place] [address] Comprehensive metabolic 2000 panelon 07-08-2024 Albumin BCP dye [Mass/Vol] 3.3 g/dL Low 3.4-5.0 [facility] Comment on above: Performed By: #### 2 4323-8 #### CHITO SIDDIQI (17792) [facility] ([facility]) [address] [place] [address] ALP [Catalytic activity/Vol] 282 U/L High 33-110 [facility] Comment on above: Performed By: #### 2 432-8 #### CHITO SIDDIQI (71587) [facility] ([facility]) [address] [place] [id number] ALT With P-5'-P [Catalytic activity/Vol] 42 U/L Normal 7-45 [facility] Comment on above: Result Comment: Camila ents treated with Sulfasalazine may generate falsely decreased results for ALT. Performed By: #### 2 3-8 #### CHITO SIDDIQI (01823) [facility] ([facility]) [address] [place] [address] Anion gap [Moles/Vol] 11 mmol/L Normal 10-[address] [facility] Comment on above: Performed By: #### 2 3-8 #### CHITO SIDDIQI ([id number]) [facility] ([facility]) [address] [place] [address] AST With P-5'-P [Catalytic activity/Vol] 21 U/L Normal 9-39 [facility] Comment on above: Performed By: #### 2 4323-8 #### CHITO SIDDIQI (40986) [facility] ([facility]) [address] [place] [address] Bilirubin [Mass/Vol] 0.5 mg/dL Normal 0.0-1.2 [facility] Comment on above: Performed By: #### 2 4323-8 #### CHITO SIDDIQI (44961) [facility] ([facility]) [address] [place] [address] Calcium [Mass/Vol] 8.9 mg/dL Normal 8.6-10.3 [facility] Comment on above: Performed By: #### 2 4323-8 #### CHITO SIDDIQI (68059) [facility] ([facility]) [address] [place] [address] Chloride [Moles/Vol] 101 mmol/L Normal 98-107 [facility] Comment on above: Performed By: #### 2 4323-8 #### CHITO SIDDIQI (16320) [facility] ([facility]) [address] [place] [address] CO2 [Moles/Vol] 28 mmol/L Normal 21-32 [facility] Comment on above: Performed By: #### 2 4323-8 #### CHITO SIDDIQI (17430) [facility] ([facility]) [address] [place] [address] Creatinine [Mass/Vol] 0.40 mg/dL Low 0.50-1.[address] [facility] Comment on above: Performed By: #### 2 4323-8 #### CHITO SIDDIQI (29828) [facility] ([facility]) [address] [place] [address] GFR/1.73 sq M.predicted MDRD (S/P/Bld) [Vol rate/Area] mL/min/{1.73_m2} Normal >60 [facility] Comment on above: Result Comment: Calc ulations of estimated GFR are performed using the 2020 CKD-EPI Study Refit equation without the race variable for the IDMS-Traceable creatinine methods. https://jasn.asnjournals.org/content//ASN.349785 4857 Performed By: #### 2 4323-8 #### CHITO SIDDIQI (93098) [facility] ([facility]) [address] [place] [address] Glucose [Mass/Vol] 258 mg/dL High 74-99 [facility] Comment on above: Performed By: #### 2 4323-8 #### CHITO SIDDIQI (33341) [facility] ([facility]) [address] [place] [address] Potassium [Moles/Vol] 4.1 mmol/L Normal 3.5-5.[address] [facility] Comment on above: Performed By: #### 2 4323-8 #### CHITO SIDDIQI (49661) [facility] ([facility]) [address] [place] [address] Protein [Mass/Vol] 6.5 g/dL Normal 6.4-8.2 [facility] Comment on above: Performed By: #### 2 4323-8 #### CHITO SIDDIQI (54829) [facility] ([facility]) [address] [place] [address] Sodium [Moles/Vol] 136 mmol/L Normal 136-145 [facility] Comment on above: Performed By: #### 2 3-8 #### CHITO SIDDIQI (47932) [facility] ([facility]) [address] [place] [address] Urea nitrogen [Mass/Vol] 20 mg/dL Normal 6-23 [facility] Comment on above: Performed By: #### 2 3-8 #### CHITO SIDDIQI (63001) [facility] ([facility]) [address] [place] [address] Glucose Test strip manual (B ld) [Mass/Vol]on 07-08-2024 Glucose [Mass/Vol] 352 mg/dL High 74-99 [facility] Comment on above: Performed By: #### 2 4323-8 #### CHITO SIDDIQI (67416) [facility] ([facility]) [address] [place] [address] Glucose [Mass/Vol] 443 mg/dL High [address] [place] [address] Comment on above: Performed By: #### 2 4323-8 #### CHITO SIDDIQI (27787) [facility] ([facility]) [address] [place] [id number] Glucose [Mass/Vol] 286 mg/dL High 74-99 [facility] Comment on above: Performed By: #### 2 4323-8 #### CHITO SIDDIQI (32281) [facility] ([facility]) [address] [place] [id number] Glucose [Mass/Vol] 259 mg/dL High [address] [place] [address] Comment on above: Performed By: #### 2 4323-8 #### CHITO SIDDIQI (02459) [facility] ([facility]) [address] [place] [address] CBC W Auto Differential pane l (Bld)on 07-07-2024 Erythrocyte distribution width (RBC) [Ratio] 13.7 % Normal 11.5-14.5 [facility] Comment on above: Order Comment: The p reviously reported component Neutrophils % is no longer being reported.The previously reported component Lymphocytes % is no longer being reported.The previously reported component Monocytes % is no longer being reported.The previously reported component Eosinophils % is no longer being reported.The previously reported component Basophils % is no longer being reported.The previously reported component Absolute Neutrophils is no longer being reported.The previously reported component Absolute Lymphocytes is no longer being reported.The previously reported component Absolute Monocytes is no longer being reported.The previously reported component Absolute Eosinophils is no longer being reported.The previously reported component Absolute Basophils is no longer being reported. Performed By: #### 2 4323-8 #### CHITO SIDDIQI (54062) [facility] ([facility]) [address] [place] [place] [id number] Hematocrit (Bld) [Volume fraction] 40.3 % Normal 36.0-46.0 [facility] Comment on above: Order Comment: The p reviously reported component Neutrophils % is no longer being reported.The previously reported component Lymphocytes % is no longer being reported.The previously reported component Monocytes % is no longer being reported.The previously reported component Eosinophils % is no longer being reported.The previously reported component Basophils % is no longer being reported.The previously reported component Absolute Neutrophils is no longer being reported.The previously reported component Absolute Lymphocytes is no longer being reported.The previously reported component Absolute Monocytes is no longer being reported.The previously reported component Absolute Eosinophils is no longer being reported.The previously reported component Absolute Basophils is no longer being reported. Performed By: #### 2 4323-8 #### CHITO SIDDIQI (32889) [facility] ([facility]) [address] [place] [address] Hemoglobin (Bld) [Mass/Vol] 13.1 g/dL Normal 12.0-16.0 [facility] Comment on above: Order Comment: The p reviously reported component Neutrophils % is no longer being reported.The previously reported component Lymphocytes % is no longer being reported.The previously reported component Monocytes % is no longer being reported.The previously reported component Eosinophils % is no longer being reported.The previously reported component Basophils % is no longer being reported.The previously reported component Absolute Neutrophils is no longer being reported.The previously reported component Absolute Lymphocytes is no longer being reported.The previously reported component Absolute Monocytes is no longer being reported.The previously reported component Absolute Eosinophils is no longer being reported.The previously reported component Absolute Basophils is no longer being reported. Performed By: #### 2 4323-8 #### CHITO SIDDIQI ([id number]) [facility] ([facility]) [address] [place] [address] Immature granulocytes (Bld) [#/Vol] 1.31 x10*3/uL High 0.00-0.70 [facility] Comment on above: Order Comment: The p reviously reported component Neutrophils % is no longer being reported.The previously reported component Lymphocytes % is no longer being reported.The previously reported component Monocytes % is no longer being reported.The previously reported component Eosinophils % is no longer being reported.The previously reported component Basophils % is no longer being reported.The previously reported component Absolute Neutrophils is no longer being reported.The previously reported component Absolute Lymphocytes is no longer being reported.The previously reported component Absolute Monocytes is no longer being reported.The previously reported component Absolute Eosinophils is no longer being reported.The previously reported component Absolute Basophils is no longer being reported. Performed By: #### 2 4323-8 #### CHITO SIDDIQI (33733) [facility] ([facility]) [address] [place] [address] Immature granulocytes/100 WBC (Bld) 8.8 % High 0.0-0.9 [facility] Comment on above: Order Comment: The p reviously reported component Neutrophils % is no longer being reported.The previously reported component Lymphocytes % is no longer being reported.The previously reported component Monocytes % is no longer being reported.The previously reported component Eosinophils % is no longer being reported.The previously reported component Basophils % is no longer being reported.The previously reported component Absolute Neutrophils is no longer being reported.The previously reported component Absolute Lymphocytes is no longer being reported.The previously reported component Absolute Monocytes is no longer being reported.The previously reported component Absolute Eosinophils is no longer being reported.The previously reported component Absolute Basophils is no longer being reported. Result Comment: Meagan ture Granulocyte Count (IG) includes promyelocytes, myelocytes and metamyelocytes but does not include bands. Percent differential counts (%) should be interpreted in the context of the absolute cell counts (cells/UL). Performed By: #### 2 4323-8 #### CHITO SIDDIQI ([id number]) [facility] ([facility]) [address] [place] [place] [id number] MCH (RBC) [Entitic mass] 27.9 pg Normal 26.0-34.0 [facility] Comment on above: Order Comment: The p reviously reported component Neutrophils % is no longer being reported.The previously reported component Lymphocytes % is no longer being reported.The previously reported component Monocytes % is no longer being reported.The previously reported component Eosinophils % is no longer being reported.The previously reported component Basophils % is no longer being reported.The previously reported component Absolute Neutrophils is no longer being reported.The previously reported component Absolute Lymphocytes is no longer being reported.The previously reported component Absolute Monocytes is no longer being reported.The previously reported component Absolute Eosinophils is no longer being reported.The previously reported component Absolute Basophils is no longer being reported. Performed By: #### 2 4323-8 #### CHITO SIDDIQI (71677) [facility] ([facility]) [address] [place] [address] MCHC (RBC) [Mass/Vol] 32.5 g/dL Normal 32.0-36.[address] [facility] Comment on above: Order Comment: The p reviously reported component Neutrophils % is no longer being reported.The previously reported component Lymphocytes % is no longer being reported.The previously reported component Monocytes % is no longer being reported.The previously reported component Eosinophils % is no longer being reported.The previously reported component Basophils % is no longer being reported.The previously reported component Absolute Neutrophils is no longer being reported.The previously reported component Absolute Lymphocytes is no longer being reported.The previously reported component Absolute Monocytes is no longer being reported.The previously reported component Absolute Eosinophils is no longer being reported.The previously reported component Absolute Basophils is no longer being reported. Performed By: #### 2 4323-8 #### CHITO SIDDIQI (78625) [facility] ([facility]) [address] [place] [address] MCV (RBC) [Entitic vol] 86 fL Normal 80-100 [facility] Comment on above: Order Comment: The p reviously reported component Neutrophils % is no longer being reported.The previously reported component Lymphocytes % is no longer being reported.The previously reported component Monocytes % is no longer being reported.The previously reported component Eosinophils % is no longer being reported.The previously reported component Basophils % is no longer being reported.The previously reported component Absolute Neutrophils is no longer being reported.The previously reported component Absolute Lymphocytes is no longer being reported.The previously reported component Absolute Monocytes is no longer being reported.The previously reported component Absolute Eosinophils is no longer being reported.The previously reported component Absolute Basophils is no longer being reported. Performed By: #### 2 4323-8 #### CHITO SIDDIQI (09885) [facility] ([facility]) [address] [place] [address] Nucleated RBC/100 WBC (Bld) [Ratio] 0.0 /100 WBCs Normal 0.0-0.0 [facility] Comment on above: Order Comment: The p reviously reported component Neutrophils % is no longer being reported.The previously reported component Lymphocytes % is no longer being reported.The previously reported component Monocytes % is no longer being reported.The previously reported component Eosinophils % is no longer being reported.The previously reported component Basophils % is no longer being reported.The previously reported component Absolute Neutrophils is no longer being reported.The previously reported component Absolute Lymphocytes is no longer being reported.The previously reported component Absolute Monocytes is no longer being reported.The previously reported component Absolute Eosinophils is no longer being reported.The previously reported component Absolute Basophils is no longer being reported. Performed By: #### 2 4323-8 #### CHITO SIDDIQI (41038) [facility] ([facility]) [address] [place] [address] Platelets (Bld) [#/Vol] 207 x10*3/uL Normal 150-450 [facility] Comment on above: Order Comment: The p reviously reported component Neutrophils % is no longer being reported.The previously reported component Lymphocytes % is no longer being reported.The previously reported component Monocytes % is no longer being reported.The previously reported component Eosinophils % is no longer being reported.The previously reported component Basophils % is no longer being reported.The previously reported component Absolute Neutrophils is no longer being reported.The previously reported component Absolute Lymphocytes is no longer being reported.The previously reported component Absolute Monocytes is no longer being reported.The previously reported component Absolute Eosinophils is no longer being reported.The previously reported component Absolute Basophils is no longer being reported. Performed By: #### 2 4323-8 #### CHITO SIDDIQI (64850) [facility] ([facility]) [address] [place] [address] RBC (Bld) [#/Vol] 4.69 x10*6/uL Normal 4.00-5.20 [facility] Comment on above: Order Comment: The p reviously reported component Neutrophils % is no longer being reported.The previously reported component Lymphocytes % is no longer being reported.The previously reported component Monocytes % is no longer being reported.The previously reported component Eosinophils % is no longer being reported.The previously reported component Basophils % is no longer being reported.The previously reported component Absolute Neutrophils is no longer being reported.The previously reported component Absolute Lymphocytes is no longer being reported.The previously reported component Absolute Monocytes is no longer being reported.The previously reported component Absolute Eosinophils is no longer being reported.The previously reported component Absolute Basophils is no longer being reported. Performed By: #### 2 4323-8 #### CHITO SIDDIQI (04171) [facility] ([facility]) [address] [place] [address] WBC (Bld) [#/Vol] 15.0 x10*3/uL High 4.4-11.3 [facility] Comment on above: Order Comment: The p reviously reported component Neutrophils % is no longer being reported.The previously reported component Lymphocytes % is no longer being reported.The previously reported component Monocytes % is no longer being reported.The previously reported component Eosinophils % is no longer being reported.The previously reported component Basophils % is no longer being reported.The previously reported component Absolute Neutrophils is no longer being reported.The previously reported component Absolute Lymphocytes is no longer being reported.The previously reported component Absolute Monocytes is no longer being reported.The previously reported component Absolute Eosinophils is no longer being reported.The previously reported component Absolute Basophils is no longer being reported. Performed By: #### 2 4323-8 #### CHITO SIDDIQI (20794) [facility] ([facility]) [address] [place] [address] Comprehensive metabolic 2000 panelon 07-07-2024 Albumin BCP dye [Mass/Vol] 3.0 g/dL Low 3.4-5.0 [facility] Comment on above: Performed By: #### 2 4323-8 #### CHITO SIDDIQI (54188) [facility] ([facility]) [address] [place] [address] ALP [Catalytic activity/Vol] 231 U/L High 33-110 [facility] Comment on above: Performed By: #### 2 4323-8 #### CHITO SIDDIQI (83184) [facility] ([facility]) [address] [place] [address] ALT With P-5'-P [Catalytic activity/Vol] 39 U/L Normal 7-45 [facility] Comment on above: Result Comment: Camila ents treated with Sulfasalazine may generate falsely decreased results for ALT. Performed By: #### 2 4323-8 #### CHITO SIDDIQI (50506) [facility] ([facility]) [address] [place] [address] Anion gap [Moles/Vol] 10 mmol/L Normal 10-20 [facility] Comment on above: Performed By: #### 2 4323-8 #### CHITO SIDDIQI (48012) [facility] ([facility]) [address] [place] [address] AST With P-5'-P [Catalytic activity/Vol] 21 U/L Normal 9-39 [facility] Comment on above: Performed By: #### 2 4323-8 #### CHITO SIDDIQI (18421) [facility] ([facility]) [address] [place] [address] Bilirubin [Mass/Vol] 0.5 mg/dL Normal 0.0-1.2 [facility] Comment on above: Performed By: #### 2 4323-8 #### CHITO SIDDIQI (74853) [facility] ([facility]) [address] [place] [address] Calcium [Mass/Vol] 8.7 mg/dL Normal 8.6-10.3 [facility] Comment on above: Performed By: #### 2 4323-8 #### CHITO SIDDIQI (21642) [facility] ([facility]) [address] [place] [address] Chloride [Moles/Vol] 101 mmol/L Normal 98-107 [facility] Comment on above: Performed By: #### 2 4323-8 #### CHITO SIDDIQI (99380) [facility] ([facility]) [address] [place] [address] CO2 [Moles/Vol] 30 mmol/L Normal 21-32 [facility] Comment on above: Performed By: #### 2 4323-8 #### CHITO SIDDIQI (51895) [facility] ([facility]) [address] [place] [address] Creatinine [Mass/Vol] 0.42 mg/dL Low 0.50-1.[address] [facility] Comment on above: Performed By: #### 2 4323-8 #### CHITO SIDDIQI (13360) [facility] ([facility]) [address] [place] [address] GFR/1.73 sq M.predicted MDRD (S/P/Bld) [Vol rate/Area] mL/min/{1.73_m2} Normal >60 [facility] Comment on above: Result Comment: Calc ulations of estimated GFR are performed using the 2020 CKD-EPI Study Refit equation without the race variable for the IDMS-Traceable creatinine methods. https://jasn.asnjournals.org/content/early/ASN.125064 1160 Performed By: #### 2 4323-8 #### CHITO SIDDIQI (21527) [facility] ([facility]) [address] [place] [address] Glucose [Mass/Vol] 248 mg/dL High 74-99 [facility] Comment on above: Performed By: #### 2 4322-8 #### CHITO SIDDIQI (56996) [facility] ([facility]) [address] [place] [address] Potassium [Moles/Vol] 4.3 mmol/L Normal 3.5-5.[address] [facility] Comment on above: Performed By: #### 2 4323-8 #### CHITO SIDDIQI (58393) [facility] ([facility]) [address] [place] [address] Protein [Mass/Vol] 6.0 g/dL Low 6.4-8.2 [facility] Comment on above: Performed By: #### 2 4323-8 #### CHITO SIDDIQI (88735) [facility] ([facility]) [address] [place] [address] Sodium [Moles/Vol] 137 mmol/L Normal 136-145 [facility] Comment on above: Performed By: #### 2 3-8 #### CHITO SIDDIQI ([id number]) [facility] ([facility]) [address] [place] [address] Urea nitrogen [Mass/Vol] 18 mg/dL Normal 6-23 [facility] Comment on above: Performed By: #### 2 4323-8 #### CHITO SIDDIQI (98065) [facility] ([facility]) [address] [place] [address] Glucose Test strip manual (B ld) [Mass/Vol]on 07-07-2024 Glucose [Mass/Vol] 289 mg/dL High [address] [place] [address] Comment on above: Performed By: #### 2 4323-8 #### CHITO SIDDIQI (09126) [facility] ([facility]) [address] [place] [address] Glucose [Mass/Vol] 347 mg/dL High [address] [place] [address] Comment on above: Performed By: #### 2 4323-8 #### CHITO SIDDIQI ([id number]) [facility] ([facility]) [address] [place] [address] Glucose [Mass/Vol] 235 mg/dL [address] Comment on above: Performed By: #### 2 4323-8 #### CHITO SIDDIQI (21479) [facility] ([facility]) [address] [place] [address] Glucose [Mass/Vol] 235 mg/dL [address] Comment on above: Performed By: #### 2 4323-8 #### CHITO SIDDIQI (07985) [facility] ([facility]) [address] [place] [address] Manual differential performe d Ql (Bld)on 07-07-2024 Band form neutrophils (Bld) [#/Vol] 0.15 x10*3/uL Normal 0.00-0.70 [facility] Comment on above: Performed By: #### 2 4323-8 #### CHITO SIDDIQI (81182) [facility] ([facility]) [address] [place] [address] Band form neutrophils/100 WBC (Bld) 1.0 % Normal 0.0-5.0 [facility] Comment on above: Performed By: #### 2 4323-8 #### CHITO SIDDIQI (33903) [facility] ([facility]) [address] [place] [address] Basophils (Bld) [#/Vol] 0.15 x10*3/uL High 0.00-0.10 [facility] Comment on above: Performed By: #### 2 3-8 #### CHITO SIDDIQI (86678) [facility] ([facility]) [address] [place] [address] Basophils/100 WBC (Bld) 1.0 % Normal 0.0-2.0 [facility] Comment on above: Performed By: #### 2 4322-8 #### CHITO SIDDIQI (51934) [facility] ([facility]) [address] [place] [address] Cells Counted Total (Bld) [#] 100 Normal [facility] Comment on above: Performed By: #### 2 4322-8 #### CHITO SIDDIQI ([id number]) [facility] ([facility]) [address] [place] [address] Eosinophils (Bld) [#/Vol] 0.00 x10*3/uL Normal 0.00-0.70 [facility] Comment on above: Performed By: #### 2 4322-8 #### CHITO SIDDIQI (11875) [facility] ([facility]) [address] [place] [address] Eosinophils/100 WBC (Bld) 0.0 % Normal 0.0-6.0 [facility] Comment on above: Performed By: #### 2 4322-8 #### CHITO SIDDIQI (31465) [facility] ([facility]) [address] [place] [address] Lymphocytes (Bld) [#/Vol] 2.10 x10*3/uL Normal 1.20-4.80 [facility] Comment on above: Performed By: #### 2 4322-8 #### CHITO SIDDIQI (00995) [facility] ([facility]) [address] [place] [address] Lymphocytes/100 WBC (Bld) 14.0 % Normal 13.0-44.0 [facility] Comment on above: Performed By: #### 2 4322-8 #### CHITO SIDDIQI (66143) [facility] ([facility]) [address] [place] [address] Monocytes (Bld) [#/Vol] 0.45 x10*3/uL Normal 0.10-1.00 [facility] Comment on above: Performed By: #### 2 4322-8 #### CHITO SIDDIQI (24260) [facility] ([facility]) [address] [place] [address] Monocytes/100 WBC (Bld) 3.0 % Normal 2.0-10.0 [facility] Comment on above: Performed By: #### 2 4322-8 #### CHITO SIDDIQI (65769) [facility] ([facility]) [address] [place] [address] Neutrophils (Bld) [#/Vol] 12.30 x10*3/uL High 1.20-7.70 [facility] Comment on above: Performed By: #### 2 4322-8 #### CHITO SIDDIQI (05196) [facility] ([facility]) [address] [place] [address] Ovalocytes LM Ql (Bld) Few [facility] Comment on above: Performed By: #### 2 4322-8 #### CHITO SIDDIQI (62420) [facility] ([facility]) [address] [place] [address] Polychromasia LM Ql (Bld) Mild [facility] Comment on above: Performed By: #### 2 4322-8 #### CHITO SIDDIQI (82520) [facility] ([facility]) [address] [place] [address] RBC morphology finding Nom (Bld) See Below [facility] Comment on above: Performed By: #### 2 432-8 #### CHITO SIDDIQI (10908) [facility] ([facility]) [address] [place] [address] Segmented neutrophils (Bld) [#/Vol] 12.15 x10*3/uL High 1.20-7.00 [facility] Comment on above: Performed By: #### 2 4323-8 #### CHITO SIDDIQI (08795) [facility] ([facility]) [address] [place] [id number] Segmented neutrophils/100 WBC (Bld) 81.0 % Normal 40.0-80.0 [facility] Comment on above: Result Comment: Perc ent differential counts (%) should be interpreted in the context of the absolute cell counts (cells/uL). Performed By: #### 2 4323-8 #### CHITO SIDDIQI (75020) [facility] ([facility]) [address] [place] [place] [id number] CBC W Auto Differential pane l (Bld)on 07-06-2024 Erythrocyte distribution width (RBC) [Ratio] 13.7 % Normal 11.5-14.5 [facility] Comment on above: Order Comment: The p reviously reported component Neutrophils % is no longer being reported.The previously reported component Lymphocytes % is no longer being reported.The previously reported component Monocytes % is no longer being reported.The previously reported component Eosinophils % is no longer being reported.The previously reported component Basophils % is no longer being reported.The previously reported component Absolute Neutrophils is no longer being reported.The previously reported component Absolute Lymphocytes is no longer being reported.The previously reported component Absolute Monocytes is no longer being reported.The previously reported component Absolute Eosinophils is no longer being reported.The previously reported component Absolute Basophils is no longer being reported. Performed By: #### 2 4323-8 #### CHITO SIDDIQI (97736) [facility] ([facility]) [address] [place] [id number] Hematocrit (Bld) [Volume fraction] 36.9 % Normal 36.0-46.0 [facility] Comment on above: Order Comment: The p reviously reported component Neutrophils % is no longer being reported.The previously reported component Lymphocytes % is no longer being reported.The previously reported component Monocytes % is no longer being reported.The previously reported component Eosinophils % is no longer being reported.The previously reported component Basophils % is no longer being reported.The previously reported component Absolute Neutrophils is no longer being reported.The previously reported component Absolute Lymphocytes is no longer being reported.The previously reported component Absolute Monocytes is no longer being reported.The previously reported component Absolute Eosinophils is no longer being reported.The previously reported component Absolute Basophils is no longer being reported. Performed By: #### 2 4323-8 #### CHITO SIDDIQI (06645) [facility] ([facility]) [address] [place] [address] Hemoglobin (Bld) [Mass/Vol] 12.0 g/dL Normal 12.0-16.0 [facility] Comment on above: Order Comment: The p reviously reported component Neutrophils % is no longer being reported.The previously reported component Lymphocytes % is no longer being reported.The previously reported component Monocytes % is no longer being reported.The previously reported component Eosinophils % is no longer being reported.The previously reported component Basophils % is no longer being reported.The previously reported component Absolute Neutrophils is no longer being reported.The previously reported component Absolute Lymphocytes is no longer being reported.The previously reported component Absolute Monocytes is no longer being reported.The previously reported component Absolute Eosinophils is no longer being reported.The previously reported component Absolute Basophils is no longer being reported. Performed By: #### 2 4323-8 #### CHITO SIDDIQI (43393) [facility] ([facility]) [address] [place], [place] [id number] Immature granulocytes (Bld) [#/Vol] 1.21 x10*3/uL High 0.00-0.70 [facility] Comment on above: Order Comment: The p reviously reported component Neutrophils % is no longer being reported.The previously reported component Lymphocytes % is no longer being reported.The previously reported component Monocytes % is no longer being reported.The previously reported component Eosinophils % is no longer being reported.The previously reported component Basophils % is no longer being reported.The previously reported component Absolute Neutrophils is no longer being reported.The previously reported component Absolute Lymphocytes is no longer being reported.The previously reported component Absolute Monocytes is no longer being reported.The previously reported component Absolute Eosinophils is no longer being reported.The previously reported component Absolute Basophils is no longer being reported. Performed By: #### 2 4323-8 #### CHITO SIDDIQI (12220) [facility] ([facility]) [address] [place] [id number] Immature granulocytes/100 WBC (Bld) 9.9 % High 0.0-0.9 [facility] Comment on above: Order Comment: The p reviously reported component Neutrophils % is no longer being reported.The previously reported component Lymphocytes % is no longer being reported.The previously reported component Monocytes % is no longer being reported.The previously reported component Eosinophils % is no longer being reported.The previously reported component Basophils % is no longer being reported.The previously reported component Absolute Neutrophils is no longer being reported.The previously reported component Absolute Lymphocytes is no longer being reported.The previously reported component Absolute Monocytes is no longer being reported.The previously reported component Absolute Eosinophils is no longer being reported.The previously reported component Absolute Basophils is no longer being reported. Result Comment: Meagan ture Granulocyte Count (IG) includes promyelocytes, myelocytes and metamyelocytes but does not include bands. Percent differential counts (%) should be interpreted in the context of the absolute cell counts (cells/UL). Performed By: #### 2 4323-8 #### CHITO SIDDIQI (12526) [facility] ([facility]) [address] [place] [address] MCH (RBC) [Entitic mass] 27.4 pg Normal 26.0-34.0 [facility] Comment on above: Order Comment: The p reviously reported component Neutrophils % is no longer being reported.The previously reported component Lymphocytes % is no longer being reported.The previously reported component Monocytes % is no longer being reported.The previously reported component Eosinophils % is no longer being reported.The previously reported component Basophils % is no longer being reported.The previously reported component Absolute Neutrophils is no longer being reported.The previously reported component Absolute Lymphocytes is no longer being reported.The previously reported component Absolute Monocytes is no longer being reported.The previously reported component Absolute Eosinophils is no longer being reported.The previously reported component Absolute Basophils is no longer being reported. Performed By: #### 2 4323-8 #### CHITO SIDDIQI 17963) [facility] ([facility]) [address] [place] [id number] MCHC (RBC) [Mass/Vol] 32.5 g/dL Normal 32.0-36.[address] [facility] Comment on above: Order Comment: The p reviously reported component Neutrophils % is no longer being reported.The previously reported component Lymphocytes % is no longer being reported.The previously reported component Monocytes % is no longer being reported.The previously reported component Eosinophils % is no longer being reported.The previously reported component Basophils % is no longer being reported.The previously reported component Absolute Neutrophils is no longer being reported.The previously reported component Absolute Lymphocytes is no longer being reported.The previously reported component Absolute Monocytes is no longer being reported.The previously reported component Absolute Eosinophils is no longer being reported.The previously reported component Absolute Basophils is no longer being reported. Performed By: #### 2 4323-8 #### CHITO SIDDIQI (64235) [facility] ([facility]) [address] [place] [address] MCV (RBC) [Entitic vol] 84 fL Normal 80-100 [facility] Comment on above: Order Comment: The p reviously reported component Neutrophils % is no longer being reported.The previously reported component Lymphocytes % is no longer being reported.The previously reported component Monocytes % is no longer being reported.The previously reported component Eosinophils % is no longer being reported.The previously reported component Basophils % is no longer being reported.The previously reported component Absolute Neutrophils is no longer being reported.The previously reported component Absolute Lymphocytes is no longer being reported.The previously reported component Absolute Monocytes is no longer being reported.The previously reported component Absolute Eosinophils is no longer being reported.The previously reported component Absolute Basophils is no longer being reported. Performed By: #### 2 4323-8 #### CHITO SIDDIQI (46000) [facility] ([facility]) [address] [place], [place] [id number] Nucleated RBC/100 WBC (Bld) [Ratio] 0.0 /100 WBCs Normal 0.0-0.0 [facility] Comment on above: Order Comment: The p reviously reported component Neutrophils % is no longer being reported.The previously reported component Lymphocytes % is no longer being reported.The previously reported component Monocytes % is no longer being reported.The previously reported component Eosinophils % is no longer being reported.The previously reported component Basophils % is no longer being reported.The previously reported component Absolute Neutrophils is no longer being reported.The previously reported component Absolute Lymphocytes is no longer being reported.The previously reported component Absolute Monocytes is no longer being reported.The previously reported component Absolute Eosinophils is no longer being reported.The previously reported component Absolute Basophils is no longer being reported. Performed By: #### 2 4323-8 #### CHITO SIDDIQI (80920) [facility] ([facility]) [address] [place] [address] Platelets (Bld) [#/Vol] 168 x10*3/uL Normal 150-450 [facility] Comment on above: Order Comment: The p reviously reported component Neutrophils % is no longer being reported.The previously reported component Lymphocytes % is no longer being reported.The previously reported component Monocytes % is no longer being reported.The previously reported component Eosinophils % is no longer being reported.The previously reported component Basophils % is no longer being reported.The previously reported component Absolute Neutrophils is no longer being reported.The previously reported component Absolute Lymphocytes is no longer being reported.The previously reported component Absolute Monocytes is no longer being reported.The previously reported component Absolute Eosinophils is no longer being reported.The previously reported component Absolute Basophils is no longer being reported. Performed By: #### 2 4323-8 #### CHITO SIDDIQI (55706) [facility] ([facility]) [address] [place] [address] RBC (Bld) [#/Vol] 4.38 x10*6/uL Normal 4.00-5.20 [facility] Comment on above: Order Comment: The p reviously reported component Neutrophils % is no longer being reported.The previously reported component Lymphocytes % is no longer being reported.The previously reported component Monocytes % is no longer being reported.The previously reported component Eosinophils % is no longer being reported.The previously reported component Basophils % is no longer being reported.The previously reported component Absolute Neutrophils is no longer being reported.The previously reported component Absolute Lymphocytes is no longer being reported.The previously reported component Absolute Monocytes is no longer being reported.The previously reported component Absolute Eosinophils is no longer being reported.The previously reported component Absolute Basophils is no longer being reported. Performed By: #### 2 4323-8 #### CHITO SIDDIQI (07684) [facility] ([facility]) [address] [place] [address] WBC (Bld) [#/Vol] 12.2 x10*3/uL High 4.4-11.3 [facility] Comment on above: Order Comment: The p reviously reported component Neutrophils % is no longer being reported.The previously reported component Lymphocytes % is no longer being reported.The previously reported component Monocytes % is no longer being reported.The previously reported component Eosinophils % is no longer being reported.The previously reported component Basophils % is no longer being reported.The previously reported component Absolute Neutrophils is no longer being reported.The previously reported component Absolute Lymphocytes is no longer being reported.The previously reported component Absolute Monocytes is no longer being reported.The previously reported component Absolute Eosinophils is no longer being reported.The previously reported component Absolute Basophils is no longer being reported. Performed By: #### 2 4323-8 #### CHITO SIDDIQI (54239) [facility] ([facility]) [address] [place] [address] Comprehensive metabolic 2000 panelon 07-06-2024 Albumin BCP dye [Mass/Vol] 2.8 g/dL Low 3.4-5.0 [facility] Comment on above: Performed By: #### 2 4323-8 #### CHITO SIDDIQI (35395) [facility] ([facility]) [address] [place] [address] ALP [Catalytic activity/Vol] 196 U/L High 33-110 [facility] Comment on above: Performed By: #### 2 4323-8 #### CHITO SIDDIQI (55069) [facility] ([facility]) [address] [place] [address] ALT With P-5'-P [Catalytic activity/Vol] 35 U/L Normal 7-45 [facility] Comment on above: Result Comment: Camila ents treated with Sulfasalazine may generate falsely decreased results for ALT. Performed By: #### 2 4323-8 #### CHITO SIDDIQI (99185) [facility] ([facility]) [address] [place] [address] Anion gap [Moles/Vol] 10 mmol/L Normal 10-[address] [facility] Comment on above: Performed By: #### 2 4323-8 #### CHITO SIDDIQI (55695) [facility] ([facility]) [address] [place] [address] AST With P-5'-P [Catalytic activity/Vol] 21 U/L Normal 9-39 [facility] Comment on above: Performed By: #### 2 4323-8 #### CHITO SIDDIQI (79877) [facility] ([facility]) [address] [place] [address] Bilirubin [Mass/Vol] 0.5 mg/dL Normal 0.0-1.2 [facility] Comment on above: Performed By: #### 2 4323-8 #### CHITO SIDDIQI (55162) [facility] ([facility]) [address] [place] [address] Calcium [Mass/Vol] 8.4 mg/dL Low 8.6-10.3 [facility] Comment on above: Performed By: #### 2 4323-8 #### CHITO SIDDIQI (10197) [facility] ([facility]) [address] [place] [address] Chloride [Moles/Vol] 103 mmol/L Normal 98-107 [facility] Comment on above: Performed By: #### 2 4323-8 #### CHITO SIDDIQI (47067) [facility] ([facility]) [address] [place] [address] CO2 [Moles/Vol] 29 mmol/L Normal 21-32 [facility] Comment on above: Performed By: #### 2 4323-8 #### CHITO SIDDIQI (68590) [facility] ([facility]) [address] [place] [address] Creatinine [Mass/Vol] 0.40 mg/dL Low 0.50-1.[address] [facility] Comment on above: Performed By: #### 2 4323-8 #### CHITO SIDDIQI (08209) [facility] ([facility]) [address] [place] [address] GFR/1.73 sq M.predicted MDRD (S/P/Bld) [Vol rate/Area] mL/min/{1.73_m2} Normal >60 [facility] Comment on above: Result Comment: Calc ulations of estimated GFR are performed using the 2020 CKD-EPI Study Refit equation without the race variable for the IDMS-Traceable creatinine methods. https://jasn.asnjournals.org/content//ASN.355539 7369 Performed By: #### 2 4323-8 #### CHITO SIDDIQI (70262) [facility] ([facility]) [address] [place] [address] Glucose [Mass/Vol] 202 mg/dL High 74-99 [facility] Comment on above: Performed By: #### 2 4323-8 #### CHITO SIDDIQI (90899) [facility] ([facility]) [address] [place] [address] Potassium [Moles/Vol] 3.8 mmol/L Normal 3.5-5.[address] [facility] Comment on above: Performed By: #### 2 3-8 #### CHITO SIDDIQI (77008) [facility] ([facility]) [address] [place] [address] Protein [Mass/Vol] 5.5 g/dL Low 6.4-8.2 [facility] Comment on above: Performed By: #### 2 3-8 #### CHITO SIDDIQI (21741) [facility] ([facility]) [address] [place] [address] Sodium [Moles/Vol] 138 mmol/L Normal 136-145 [facility] Comment on above: Performed By: #### 2 3-8 #### CHITO SIDDIQI (12224) [facility] ([facility]) [address] [place] [address] Urea nitrogen [Mass/Vol] 17 mg/dL Normal 6-23 [facility] Comment on above: Performed By: #### 2 4323-8 #### CHITO SIDDIQI (24269) [facility] ([facility]) [address] [place] [address] Glucose Test strip manual (B ld) [Mass/Vol]on 07-06-2024 Glucose [Mass/Vol] 242 mg/dL High 74-99 [facility] Comment on above: Performed By: #### 2 432-8 #### CHITO SIDDIQI (99902) [facility] ([facility]) [address] [place] [address] Glucose [Mass/Vol] 332 mg/dL High [address] [place] [address] Comment on above: Performed By: #### 2 4322-8 #### CHITO SIDDIQI (09852) [facility] ([facility]) [address] [place] [address] Glucose [Mass/Vol] 286 mg/dL High [address] [place] [address] Comment on above: Performed By: #### 2 4322-8 #### CHITO SIDDIQI (39846) [facility] ([facility]) [address] [place] [address] Glucose [Mass/Vol] 185 mg/dL High [address] [place] [address] Comment on above: Performed By: #### 2 4322-8 #### CHITO SIDDIQI (58256) [facility] ([facility]) [address] [place], [place] [id number] Magnesiumon 07-06-2024 Magnesium [Mass/Vol] 1.62 mg/dL Normal 1.60-2.40 [facility] Comment on above: Performed By: #### 2 4322-8 #### CHITO SIDDIQI ([id number]) [facility] ([facility]) [address] [place], [place] [id number] Manual differential performe d Ql (Bld)on 07-06-2024 Band form neutrophils (Bld) [#/Vol] 0.98 x10*3/uL High 0.00-0.70 [facility] Comment on above: Performed By: #### 2 4322-8 #### CHITO SIDDIQI ([id number]) [facility] ([facility]) [address] [place] [address] Band form neutrophils/100 WBC (Bld) 8.0 % Normal 0.0-5.0 [facility] Comment on above: Performed By: #### 2 4322-8 #### CHITO SIDDIQI (94745) [facility] ([facility]) [address] [place] [address] Basophils (Bld) [#/Vol] 0.00 x10*3/uL Normal 0.00-0.10 [facility] Comment on above: Performed By: #### 2 4323-8 #### CHITO SIDDIQI (80754) [facility] ([facility]) [address] [place] [address] Basophils/100 WBC (Bld) 0.0 % Normal 0.0-2.0 [facility] Comment on above: Performed By: #### 2 4322-8 #### CHITO SIDDIQI (72393) [facility] ([facility]) [address] [place] [address] Cells Counted Total (Bld) [#] 100 Normal [facility] Comment on above: Performed By: #### 2 4322-8 #### CHITO SIDDIQI (55348) [facility] ([facility]) [address] [place] [address] Eosinophils (Bld) [#/Vol] 0.12 x10*3/uL Normal 0.00-0.70 [facility] Comment on above: Performed By: #### 2 4322-8 #### CHITO SIDDIQI (90459) [facility] ([facility]) [address] [place] [address] Eosinophils/100 WBC (Bld) 1.0 % Normal 0.0-6.0 [facility] Comment on above: Performed By: #### 2 3-8 #### CHITO SIDDIQI (41904) [facility] ([facility]) [address] [place] [address] Lymphocytes (Bld) [#/Vol] 0.61 x10*3/uL Low 1.20-4.80 [facility] Comment on above: Performed By: #### 2 4322-8 #### CHITO SIDDIQI (77818) [facility] ([facility]) [address] [place] [address] Lymphocytes/100 WBC (Bld) 5.0 % Normal 13.0-44.0 [facility] Comment on above: Performed By: #### 2 3-8 #### CHITO SIDDIQI (38434) [facility] ([facility]) [address] [place] [address] Metamyelocytes (Bld) [#/Vol] 0.12 x10*3/uL Normal 0.00-0.00 [facility] Comment on above: Performed By: #### 2 3-8 #### CHITO SIDDIQI (19543) [facility] ([facility]) [address] [place] [address] Metamyelocytes/100 WBC (Bld) 1.0 % Normal 0.0-0.0 [facility] Comment on above: Performed By: #### 2 4322-8 #### CHITO SIDDIQI (23550) [facility] ([facility]) [address] [place] [address] Monocytes (Bld) [#/Vol] 0.49 x10*3/uL Normal 0.10-1.00 [facility] Comment on above: Performed By: #### 2 4322-8 #### CHITO SIDDIQI (93160) [facility] ([facility]) [address] [place] [address] Monocytes/100 WBC (Bld) 4.0 % Normal 2.0-10.0 [facility] Comment on above: Performed By: #### 2 4322-8 #### CHITO SIDDIQI (08182) [facility] ([facility]) [address] [place] [address] Neutrophils (Bld) [#/Vol] 10.37 x10*3/uL High 1.20-7.70 [facility] Comment on above: Performed By: #### 2 3-8 #### CHITO SIDDIQI (32128) [facility] ([facility]) [address] [place] [address] Ovalocytes LM Ql (Bld) Few Normal [facility] Comment on above: Performed By: #### 2 3-8 #### CHITO SIDDIQI (37216) [facility] ([facility]) [address] [place] [address] Polychromasia LM Ql (Bld) Mild Normal [facility] Comment on above: Performed By: #### 2 4323-8 #### CHITO SIDDIQI (49420) [facility] ([facility]) [address] [place] [address] RBC morphology finding Nom (Bld) See Below [facility] Comment on above: Performed By: #### 2 432-8 #### CHITO SIDDIQI (37112) [facility] ([facility]) [address] [place] [address] Segmented neutrophils (Bld) [#/Vol] 9.39 x10*3/uL High 1.20-7.00 [facility] Comment on above: Performed By: #### 2 432-8 #### CHITO SIDDIQI (15976) [facility] ([facility]) [address] [place] [id number] Segmented neutrophils/100 WBC (Bld) 77.0 % Normal 40.0-80.0 [facility] Comment on above: Result Comment: Perc ent differential counts (%) should be interpreted in the context of the absolute cell counts (cells/uL). Performed By: #### 2 4323-8 #### CHITO SIDDIQI (30724) [facility] ([facility]) [address] [place] [id number] Variant lymphocytes (Bld) [#/Vol] 0.49 x10*3/uL Normal 0.00-0.50 [facility] Comment on above: Performed By: #### 2 4323-8 #### CHITO SIDDIQI (54114) [facility] ([facility]) [address] [place] [address] Variant lymphocytes/100 WBC (Bld) 4.0 % Normal 0.0-2.0 [facility] Comment on above: Performed By: #### 2 4323-8 #### CHITO SIDDIQI (13634) [facility] ([facility]) [address] [place] [address] CBC W Auto Differential pane l (Bld)on 07-05-2024 Erythrocyte distribution width (RBC) [Ratio] 13.5 % Normal 11.5-14.5 [facility] Comment on above: Order Comment: The p reviously reported component Neutrophils % is no longer being reported.The previously reported component Lymphocytes % is no longer being reported.The previously reported component Monocytes % is no longer being reported.The previously reported component Eosinophils % is no longer being reported.The previously reported component Basophils % is no longer being reported.The previously reported component Absolute Neutrophils is no longer being reported.The previously reported component Absolute Lymphocytes is no longer being reported.The previously reported component Absolute Monocytes is no longer being reported.The previously reported component Absolute Eosinophils is no longer being reported.The previously reported component Absolute Basophils is no longer being reported. Performed By: #### 1 6362-6 #### CHITO SIDDIQI (36068) [facility] ([facility]) [address] [place] [address] Hematocrit (Bld) [Volume fraction] 34.2 % Low 36.0-46.0 [facility] Comment on above: Order Comment: The p reviously reported component Neutrophils % is no longer being reported.The previously reported component Lymphocytes % is no longer being reported.The previously reported component Monocytes % is no longer being reported.The previously reported component Eosinophils % is no longer being reported.The previously reported component Basophils % is no longer being reported.The previously reported component Absolute Neutrophils is no longer being reported.The previously reported component Absolute Lymphocytes is no longer being reported.The previously reported component Absolute Monocytes is no longer being reported.The previously reported component Absolute Eosinophils is no longer being reported.The previously reported component Absolute Basophils is no longer being reported. Performed By: #### 1 6362-6 #### CHITO SIDDIQI 00979) [facility] ([facility]) [address] [place] [address] Hemoglobin (Bld) [Mass/Vol] 11.5 g/dL Low 12.0-16.0 [facility] Comment on above: Order Comment: The p reviously reported component Neutrophils % is no longer being reported.The previously reported component Lymphocytes % is no longer being reported.The previously reported component Monocytes % is no longer being reported.The previously reported component Eosinophils % is no longer being reported.The previously reported component Basophils % is no longer being reported.The previously reported component Absolute Neutrophils is no longer being reported.The previously reported component Absolute Lymphocytes is no longer being reported.The previously reported component Absolute Monocytes is no longer being reported.The previously reported component Absolute Eosinophils is no longer being reported.The previously reported component Absolute Basophils is no longer being reported. Performed By: #### 1 6362-6 #### CHITO SIDDIQI (05379) [facility] ([facility]) [address] [place] [address] Immature granulocytes (Bld) [#/Vol] 1.33 x10*3/uL High 0.00-0.70 [facility] Comment on above: Order Comment: The p reviously reported component Neutrophils % is no longer being reported.The previously reported component Lymphocytes % is no longer being reported.The previously reported component Monocytes % is no longer being reported.The previously reported component Eosinophils % is no longer being reported.The previously reported component Basophils % is no longer being reported.The previously reported component Absolute Neutrophils is no longer being reported.The previously reported component Absolute Lymphocytes is no longer being reported.The previously reported component Absolute Monocytes is no longer being reported.The previously reported component Absolute Eosinophils is no longer being reported.The previously reported component Absolute Basophils is no longer being reported. Performed By: #### 1 6362-6 #### CHITO SIDDIQI (11877) [facility] ([facility]) [address] [place], [place] [id number] Immature granulocytes/100 WBC (Bld) 12.1 % High 0.0-0.9 [facility] Comment on above: Order Comment: The p reviously reported component Neutrophils % is no longer being reported.The previously reported component Lymphocytes % is no longer being reported.The previously reported component Monocytes % is no longer being reported.The previously reported component Eosinophils % is no longer being reported.The previously reported component Basophils % is no longer being reported.The previously reported component Absolute Neutrophils is no longer being reported.The previously reported component Absolute Lymphocytes is no longer being reported.The previously reported component Absolute Monocytes is no longer being reported.The previously reported component Absolute Eosinophils is no longer being reported.The previously reported component Absolute Basophils is no longer being reported. Result Comment: Meagan ture Granulocyte Count (IG) includes promyelocytes, myelocytes and metamyelocytes but does not include bands. Percent differential counts (%) should be interpreted in the context of the absolute cell counts (cells/UL). Performed By: #### 1 6362-6 #### CHITO SIDDIQI (91460) [facility] ([facility]) [address] [place] [id number] MCH (RBC) [Entitic mass] 28.2 pg Normal 26.0-34.0 [facility] Comment on above: Order Comment: The p reviously reported component Neutrophils % is no longer being reported.The previously reported component Lymphocytes % is no longer being reported.The previously reported component Monocytes % is no longer being reported.The previously reported component Eosinophils % is no longer being reported.The previously reported component Basophils % is no longer being reported.The previously reported component Absolute Neutrophils is no longer being reported.The previously reported component Absolute Lymphocytes is no longer being reported.The previously reported component Absolute Monocytes is no longer being reported.The previously reported component Absolute Eosinophils is no longer being reported.The previously reported component Absolute Basophils is no longer being reported. Performed By: #### 1 6362-6 #### CHITO SIDDIQI (98214) [facility] ([facility]) [address] [place] [address] MCHC (RBC) [Mass/Vol] 33.6 g/dL Normal 32.0-36.[address] [facility] Comment on above: Order Comment: The p reviously reported component Neutrophils % is no longer being reported.The previously reported component Lymphocytes % is no longer being reported.The previously reported component Monocytes % is no longer being reported.The previously reported component Eosinophils % is no longer being reported.The previously reported component Basophils % is no longer being reported.The previously reported component Absolute Neutrophils is no longer being reported.The previously reported component Absolute Lymphocytes is no longer being reported.The previously reported component Absolute Monocytes is no longer being reported.The previously reported component Absolute Eosinophils is no longer being reported.The previously reported component Absolute Basophils is no longer being reported. Performed By: #### 1 6362-6 #### CHITO SIDDIQI (51323) [facility] ([facility]) [address] [place] [address] MCV (RBC) [Entitic vol] 84 fL Normal 80-100 [facility] Comment on above: Order Comment: The p reviously reported component Neutrophils % is no longer being reported.The previously reported component Lymphocytes % is no longer being reported.The previously reported component Monocytes % is no longer being reported.The previously reported component Eosinophils % is no longer being reported.The previously reported component Basophils % is no longer being reported.The previously reported component Absolute Neutrophils is no longer being reported.The previously reported component Absolute Lymphocytes is no longer being reported.The previously reported component Absolute Monocytes is no longer being reported.The previously reported component Absolute Eosinophils is no longer being reported.The previously reported component Absolute Basophils is no longer being reported. Performed By: #### 1 6362-6 #### CHITO SIDDIQI (26038) [facility] ([facility]) [address] [place] [address] Nucleated RBC/100 WBC (Bld) [Ratio] 0.0 /100 WBCs Normal 0.0-0.0 [facility] Comment on above: Order Comment: The p reviously reported component Neutrophils % is no longer being reported.The previously reported component Lymphocytes % is no longer being reported.The previously reported component Monocytes % is no longer being reported.The previously reported component Eosinophils % is no longer being reported.The previously reported component Basophils % is no longer being reported.The previously reported component Absolute Neutrophils is no longer being reported.The previously reported component Absolute Lymphocytes is no longer being reported.The previously reported component Absolute Monocytes is no longer being reported.The previously reported component Absolute Eosinophils is no longer being reported.The previously reported component Absolute Basophils is no longer being reported. Performed By: #### 1 6362-6 #### CHITO SIDDIQI (94319) [facility] ([facility]) [address] [place], [place] [id number] Platelets (Bld) [#/Vol] 138 x10*3/uL Low 150-450 [facility] Comment on above: Order Comment: The p reviously reported component Neutrophils % is no longer being reported.The previously reported component Lymphocytes % is no longer being reported.The previously reported component Monocytes % is no longer being reported.The previously reported component Eosinophils % is no longer being reported.The previously reported component Basophils % is no longer being reported.The previously reported component Absolute Neutrophils is no longer being reported.The previously reported component Absolute Lymphocytes is no longer being reported.The previously reported component Absolute Monocytes is no longer being reported.The previously reported component Absolute Eosinophils is no longer being reported.The previously reported component Absolute Basophils is no longer being reported. Performed By: #### 1 6362-6 #### CHITO SIDDIQI (83944) [facility] ([facility]) [address] [place] [address] RBC (Bld) [#/Vol] 4.08 x10*6/uL Normal 4.00-5.20 [facility] Comment on above: Order Comment: The p reviously reported component Neutrophils % is no longer being reported.The previously reported component Lymphocytes % is no longer being reported.The previously reported component Monocytes % is no longer being reported.The previously reported component Eosinophils % is no longer being reported.The previously reported component Basophils % is no longer being reported.The previously reported component Absolute Neutrophils is no longer being reported.The previously reported component Absolute Lymphocytes is no longer being reported.The previously reported component Absolute Monocytes is no longer being reported.The previously reported component Absolute Eosinophils is no longer being reported.The previously reported component Absolute Basophils is no longer being reported. Performed By: #### 1 6362-6 #### CHITO SIDDIQI (11146) [facility] ([facility]) [address] [place] [id number] WBC (Bld) [#/Vol] 11.0 x10*3/uL Normal 4.4-11.3 [facility] Comment on above: Order Comment: The p reviously reported component Neutrophils % is no longer being reported.The previously reported component Lymphocytes % is no longer being reported.The previously reported component Monocytes % is no longer being reported.The previously reported component Eosinophils % is no longer being reported.The previously reported component Basophils % is no longer being reported.The previously reported component Absolute Neutrophils is no longer being reported.The previously reported component Absolute Lymphocytes is no longer being reported.The previously reported component Absolute Monocytes is no longer being reported.The previously reported component Absolute Eosinophils is no longer being reported.The previously reported component Absolute Basophils is no longer being reported. Performed By: #### 1 6362-6 #### CHITO SIDDIQI (09110) [facility] ([facility]) [address] [place] [id number] Comprehensive metabolic 2000 panelon 07-05-2024 Albumin BCP dye [Mass/Vol] 2.5 g/dL Low 3.4-5.0 [facility] Comment on above: Performed By: #### 1 6362-6 #### CHITO SIDDIQI (83006) [facility] ([facility]) [address] [place] [address] ALP [Catalytic activity/Vol] 145 U/L High 33-110 [facility] Comment on above: Performed By: #### 1 6362-6 #### CHITO SIDDIQI (59491) [facility] ([facility]) [address] [place] [address] ALT With P-5'-P [Catalytic activity/Vol] 28 U/L Normal 7-45 [facility] Comment on above: Result Comment: Camila ents treated with Sulfasalazine may generate falsely decreased results for ALT. Performed By: #### 1 6362-6 #### CHITO SIDDIQI (28455) [facility] ([facility]) [address] [place] [address] Anion gap [Moles/Vol] 7 mmol/L Low 10-[address] [facility] Comment on above: Performed By: #### 1 6362-6 #### CHITO SIDDIQI (74776) [facility] ([facility]) [address] [place] [address] AST With P-5'-P [Catalytic activity/Vol] 14 U/L Normal 9-39 [facility] Comment on above: Performed By: #### 1 6362-6 #### CHITO SIDDIQI (53926) [facility] ([facility]) [address] [place] [address] Bilirubin [Mass/Vol] 0.5 mg/dL Normal 0.0-1.2 [facility] Comment on above: Performed By: #### 1 6362-6 #### CHITO SIDDIQI (43760) [facility] ([facility]) [address] [place] [address] Calcium [Mass/Vol] 8.5 mg/dL Low 8.6-10.3 [facility] Comment on above: Performed By: #### 1 6362-6 #### CHITO SIDDIQI (93746) [facility] ([facility]) [address] [place] [address] Chloride [Moles/Vol] 106 mmol/L Normal 98-107 [facility] Comment on above: Performed By: #### 1 6362-6 #### CHITO SIDDIQI (43829) [facility] ([facility]) [address] [place] [address] CO2 [Moles/Vol] 29 mmol/L Normal 21-32 [facility] Comment on above: Performed By: #### 1 6362-6 #### CHITO SIDDIQI (36653) [facility] ([facility]) [address] [place] [address] Creatinine [Mass/Vol] 0.45 mg/dL Low 0.50-1.[address] [facility] Comment on above: Performed By: #### 1 6362-6 #### CHITO SIDDIQI (09675) [facility] ([facility]) [address] [place] [address] GFR/1.73 sq M.predicted MDRD (S/P/Bld) [Vol rate/Area] mL/min/{1.73_m2} Normal >60 [facility] Comment on above: Result Comment: Calc ulations of estimated GFR are performed using the 2020 CKD-EPI Study Refit equation without the race variable for the IDMS-Traceable creatinine methods. https://jasn.asnjournals.org/content//ASN.394778 0442 Performed By: #### 1 6362-6 #### CHITO SIDDIQI (11887) [facility] ([facility]) [address] [place] [address] Glucose [Mass/Vol] 170 mg/dL High 74-99 [facility] Comment on above: Performed By: #### 1 6362-6 #### CHITO SIDDIQI (46161) [facility] ([facility]) [address] [place] [address] Potassium [Moles/Vol] 3.4 mmol/L Low 3.5-5.[address] [facility] Comment on above: Performed By: #### 1 6362-6 #### CHITO SIDDIQI (40287) [facility] ([facility]) [address] [place] [address] Protein [Mass/Vol] 5.0 g/dL Low 6.4-8.2 [facility] Comment on above: Performed By: #### 1 6362-6 #### CHITO SIDDIQI (80782) [facility] ([facility]) [address] [place] [address] Sodium [Moles/Vol] 139 mmol/L Normal 136-145 [facility] Comment on above: Performed By: #### 1 6362-6 #### CHITO SIDDIQI (54602) [facility] ([facility]) [address] [place] [address] Urea nitrogen [Mass/Vol] 22 mg/dL Normal - [facility] Comment on above: Performed By: #### 1 6362-6 #### CHITO SIDDIQI (95514) [facility] ([facility]) [address] [place] [address] Glucose Test strip manual (B ld) [Mass/Vol]on 07-05-2024 Glucose [Mass/Vol] 305 mg/dL High 74-99 [facility] Comment on above: Performed By: #### 2 4323-8 #### CHITO SIDDIQI (66202) [facility] ([facility]) [address] [place] [address] Glucose [Mass/Vol] 281 mg/dL High 74-99 [facility] Comment on above: Performed By: #### 2 4323-8 #### CHITO SIDDIQI (07521) [facility] ([facility]) [address] [place] [address] Glucose [Mass/Vol] 189 mg/dL High 74-99 [facility] Comment on above: Performed By: #### 2 4323-8 #### CHITO SIDDIQI (24331) [facility] ([facility]) [address] [place] [address] Glucose [Mass/Vol] 167 mg/dL High 74-99 [facility] Comment on above: Performed By: #### 1 6362-6 #### CHITO SIDDIQI (13615) [facility] ([facility]) [address] [place] [address] Magnesiumon 07-05-2024 Magnesium [Mass/Vol] 1.57 mg/dL Low 1.60-2.40 [facility] Comment on above: Performed By: #### 1 6362-6 #### CHITO SIDDIQI (69012) [facility] ([facility]) [address] [place] [address] Manual differential performe d Ql (Bld)on 07-05-2024 Band form neutrophils (Bld) [#/Vol] 0.66 x10*3/uL Normal 0.00-0.70 [facility] Comment on above: Performed By: #### 1 6362-6 #### CHITO SIDDIQI ([id number]) [facility] ([facility]) [address] [id number] Band form neutrophils/100 WBC (Bld) 6.0 % Normal 0.0-5.0 [facility] Comment on above: Performed By: #### 1 6362-6 #### CHITO SIDDIQI ([id number]) [facility] ([facility]) [address] [place] [address] Basophils (Bld) [#/Vol] 0.00 x10*3/uL Normal 0.00-0.10 [facility] Comment on above: Performed By: #### 1 6362-6 #### CHITO SIDDIQI ([id number]) [facility] ([facility]) [address] [place] [address] Basophils/100 WBC (Bld) 0.0 % Normal 0.0-2.0 [facility] Comment on above: Performed By: #### 1 6362-6 #### CHITO SIDDIQI (92249) [facility] ([facility]) [address] [place] [address] Cells Counted Total (Bld) [#] 100 Normal [facility] Comment on above: Performed By: #### 1 6362-6 #### CHITO SIDDIQI (23206) [facility] ([facility]) [address] [place] [address] Eosinophils (Bld) [#/Vol] 0.00 x10*3/uL Normal 0.00-0.70 [facility] Comment on above: Performed By: #### 1 6362-6 #### CHITO SIDDIQI ([id number]) [facility] ([facility]) [address] [place] [address] Eosinophils/100 WBC (Bld) 0.0 % Normal 0.0-6.0 [facility] Comment on above: Performed By: #### 1 6362-6 #### CHITO SIDDIQI ([id number]) [facility] ([facility]) [address] [place] [address] Lymphocytes (Bld) [#/Vol] 0.44 x10*3/uL Low 1.20-4.80 [facility] Comment on above: Performed By: #### 1 6362-6 #### CHITO SIDDIQI ([id number]) [facility] ([facility]) [address] [place] [address] Lymphocytes/100 WBC (Bld) 4.0 % Normal 13.0-44.0 [facility] Comment on above: Performed By: #### 1 6362-6 #### CHITO SIDDIQI (55689) [facility] ([facility]) [address] [place] [address] Metamyelocytes (Bld) [#/Vol] 0.11 x10*3/uL Normal 0.00-0.00 [facility] Comment on above: Performed By: #### 1 6362-6 #### CHITO SIDDIQI ([id number]) [facility] ([facility]) [address] [place] [address] Metamyelocytes/100 WBC (Bld) 1.0 % Normal 0.0-0.0 [facility] Comment on above: Performed By: #### 1 6362-6 #### CHITO SIDDIQI ([id number]) [facility] ([facility]) [address] [place] [address] Monocytes (Bld) [#/Vol] 0.88 x10*3/uL Normal 0.10-1.00 [facility] Comment on above: Performed By: #### 1 6362-6 #### CHITO SIDDIQI (44021) [facility] ([facility]) [address] [place] [address] Monocytes/100 WBC (Bld) 8.0 % Normal 2.0-10.0 [facility] Comment on above: Performed By: #### 1 6362-6 #### CHITO SIDDIQI (14133) [facility] ([facility]) [address] [place] [address] Neutrophils (Bld) [#/Vol] 9.57 x10*3/uL High 1.20-7.70 [facility] Comment on above: Performed By: #### 1 6362-6 #### CHITO SIDDIQI (24306) [facility] ([facility]) [address] [place] [address] RBC morphology finding Nom (Bld) No significant RBC morphology present Normal [facility] Comment on above: Performed By: #### 1 6362-6 #### CHITO SIDDIQI (13542) [facility] ([facility]) [address] [place] [address] Segmented neutrophils (Bld) [#/Vol] 8.91 x10*3/uL High 1.20-7.00 [facility] Comment on above: Performed By: #### 1 6362-6 #### CHITO SIDDIQI (12201) [facility] ([facility]) [address] [place] [address] Segmented neutrophils/100 WBC (Bld) 81.0 % Normal 40.0-80.0 [facility] Comment on above: Result Comment: Perc ent differential counts (%) should be interpreted in the context of the absolute cell counts (cells/uL). Performed By: #### 1 6362-6 ###Stephanie SIDDIQI ([id number]) [facility] ([facility]) [address] [place] [address] Bacteria identifiedon 2024 Bacteria identified Cx Nom (Bld) Test: Blood Culture Specimen Source: Peripheral Venipuncture Specimen Type: Blood culture Specimen Date: 07/04/20241856 Result Date: 07/09/2024 1201 Result Status: Final result Abnormal: No Resulting Lab: [facility] [address] [address] CULTURE No growth at 4 days - FINAL REPORT [facility] Comment on above: Performed By: #### 2 5343-8 #### CHITO SIDDIQI ([id number]) [facility] ([facility]) [address] [place] [address] Bacteria identified Cx Nom (Bld) Test: Blood Culture Specimen Source: Peripheral Venipuncture Specimen Type: Blood culture Specimen Date: 07/04/20241856 Result Date: 07/09/2024 1301 Result Status: Final result Abnormal: No Resulting Lab: [facility] [id number] [place] [address] CULTURE No growth at 4 days - FINAL REPORT [facility] Comment on above: Performed By: #### 2 4323-8 #### CHITO SIDDIQI ([id number]) [facility] ([facility]) [address] [id number] Basic metabolic 2000 panelon 07-04-2024 Anion gap [Moles/Vol] 10 mmol/L Normal 10-[address] [facility] Comment on above: Performed By: #### T HYDS #### CHITO SIDDIQI ([id number]) [facility] ([facility]) [address] [id number] Calcium [Mass/Vol] 8.6 mg/dL Normal 8.6-10.3 [facility] Comment on above: Performed By: #### T HYDS #### CHITO SIDDIQI (47178) [facility] ([facility]) [address] [place] [address] Chloride [Moles/Vol] 107 mmol/L Normal 98-107 [facility] Comment on above: Performed By: #### Germania STANLEYS #### CHITO SIDDIQI ([id number]) [facility] ([facility]) [address] [place] [address] CO2 [Moles/Vol] 27 mmol/L Normal 21-32 [facility] Comment on above: Performed By: #### Germania HYDS #### CHITO SIDDIQI (42709) [facility] ([facility]) [address] [place] [address] Creatinine [Mass/Vol] 0.54 mg/dL Normal 0.50-1.[address] [facility] Comment on above: Performed By: #### Germania HYDS #### CHITO SIDDIQI ([id number]) [facility] ([facility]) [address] [place] [address] GFR/1.73 sq M.predicted MDRD (S/P/Bld) [Vol rate/Area] mL/min/{1.73_m2} Normal >60 [facility] Comment on above: Result Comment: Calc ulations of estimated GFR are performed using the 2020 CKD-EPI Study Refit equation without the race variable for the IDMS-Traceable creatinine methods. https://jasn.asnjournals.org/content/early//ASN.135531 7236 Performed By: #### Germania HYDS #### CHITO SIDDIQI ([id number]) [facility] ([facility]) [address] [place] [address] Glucose [Mass/Vol] 214 mg/dL High 74-99 [facility] Comment on above: Performed By: #### Germania HYDS #### CHITO SIDDIQI (34550) [facility] ([facility]) [address] [place] [address] Potassium [Moles/Vol] 3.7 mmol/L Normal 3.5-5.[address] [facility] Comment on above: Performed By: #### T HYDS #### CHITO SIDDIQI (00661) [facility] ([facility]) [address] [place] [address] Sodium [Moles/Vol] 140 mmol/L Normal 136-145 [facility] Comment on above: Performed By: #### T HYDS #### CHITO SIDDIQI (17972) [facility] ([facility]) [address] [id number] Urea nitrogen [Mass/Vol] 26 mg/dL High 6-23 [facility] Comment on above: Performed By: #### T HYDS #### CHITO SIDDIQI (96811) [facility] ([facility]) [address] [place] [address] CBC W Auto Differential pane l (Bld)on 07-04-2024 Erythrocyte distribution width (RBC) [Ratio] 13.5 % Normal 11.5-14.5 [facility] Comment on above: Order Comment: The p reviously reported component Neutrophils % is no longer being reported.The previously reported component Lymphocytes % is no longer being reported.The previously reported component Monocytes % is no longer being reported.The previously reported component Eosinophils % is no longer being reported.The previously reported component Basophils % is no longer being reported.The previously reported component Absolute Neutrophils is no longer being reported.The previously reported component Absolute Lymphocytes is no longer being reported.The previously reported component Absolute Monocytes is no longer being reported.The previously reported component Absolute Eosinophils is no longer being reported.The previously reported component Absolute Basophils is no longer being reported. Performed By: #### 1 6362-6 #### CHITO SIDDIQI (69315) [facility] ([facility]) [address] [place] [address] Hematocrit (Bld) [Volume fraction] 36.7 % Normal 36.0-46.0 [facility] Comment on above: Order Comment: The p reviously reported component Neutrophils % is no longer being reported.The previously reported component Lymphocytes % is no longer being reported.The previously reported component Monocytes % is no longer being reported.The previously reported component Eosinophils % is no longer being reported.The previously reported component Basophils % is no longer being reported.The previously reported component Absolute Neutrophils is no longer being reported.The previously reported component Absolute Lymphocytes is no longer being reported.The previously reported component Absolute Monocytes is no longer being reported.The previously reported component Absolute Eosinophils is no longer being reported.The previously reported component Absolute Basophils is no longer being reported. Performed By: #### 1 6362-6 #### CHITO SIDDIQI ([id number]) [facility] ([facility]) [address] [place] [address] Hemoglobin (Bld) [Mass/Vol] 11.6 g/dL Low 12.0-16.0 [facility] Comment on above: Order Comment: The p reviously reported component Neutrophils % is no longer being reported.The previously reported component Lymphocytes % is no longer being reported.The previously reported component Monocytes % is no longer being reported.The previously reported component Eosinophils % is no longer being reported.The previously reported component Basophils % is no longer being reported.The previously reported component Absolute Neutrophils is no longer being reported.The previously reported component Absolute Lymphocytes is no longer being reported.The previously reported component Absolute Monocytes is no longer being reported.The previously reported component Absolute Eosinophils is no longer being reported.The previously reported component Absolute Basophils is no longer being reported. Performed By: #### 1 6362-6 #### CHITO SIDDIQI (02586) [facility] ([facility]) [address] [place] [address] Immature granulocytes (Bld) [#/Vol] 1.21 x10*3/uL High 0.00-0.70 [facility] Comment on above: Order Comment: The p reviously reported component Neutrophils % is no longer being reported.The previously reported component Lymphocytes % is no longer being reported.The previously reported component Monocytes % is no longer being reported.The previously reported component Eosinophils % is no longer being reported.The previously reported component Basophils % is no longer being reported.The previously reported component Absolute Neutrophils is no longer being reported.The previously reported component Absolute Lymphocytes is no longer being reported.The previously reported component Absolute Monocytes is no longer being reported.The previously reported component Absolute Eosinophils is no longer being reported.The previously reported component Absolute Basophils is no longer being reported. Performed By: #### 1 6362-6 #### CHITO SIDDIQI (30770) [facility] ([facility]) [address] [id number] Immature granulocytes/100 WBC (Bld) 9.1 % High 0.0-0.9 [facility] Comment on above: Order Comment: The p reviously reported component Neutrophils % is no longer being reported.The previously reported component Lymphocytes % is no longer being reported.The previously reported component Monocytes % is no longer being reported.The previously reported component Eosinophils % is no longer being reported.The previously reported component Basophils % is no longer being reported.The previously reported component Absolute Neutrophils is no longer being reported.The previously reported component Absolute Lymphocytes is no longer being reported.The previously reported component Absolute Monocytes is no longer being reported.The previously reported component Absolute Eosinophils is no longer being reported.The previously reported component Absolute Basophils is no longer being reported. Result Comment: Meagan ture Granulocyte Count (IG) includes promyelocytes, myelocytes and metamyelocytes but does not include bands. Percent differential counts (%) should be interpreted in the context of the absolute cell counts (cells/UL). Performed By: #### 1 6362-6 #### CHITO SIDDIQI ([id number]) [facility] ([facility]) [address] [place] [address] MCH (RBC) [Entitic mass] 26.9 pg Normal 26.0-34.0 [facility] Comment on above: Order Comment: The p reviously reported component Neutrophils % is no longer being reported.The previously reported component Lymphocytes % is no longer being reported.The previously reported component Monocytes % is no longer being reported.The previously reported component Eosinophils % is no longer being reported.The previously reported component Basophils % is no longer being reported.The previously reported component Absolute Neutrophils is no longer being reported.The previously reported component Absolute Lymphocytes is no longer being reported.The previously reported component Absolute Monocytes is no longer being reported.The previously reported component Absolute Eosinophils is no longer being reported.The previously reported component Absolute Basophils is no longer being reported. Performed By: #### 1 6362-6 #### CHITO SIDDIQI [id number]) [facility] ([facility]) [address] [place] [address] MCHC (RBC) [Mass/Vol] 31.6 g/dL Low 32.0-36.[address] [facility] Comment on above: Order Comment: The p reviously reported component Neutrophils % is no longer being reported.The previously reported component Lymphocytes % is no longer being reported.The previously reported component Monocytes % is no longer being reported.The previously reported component Eosinophils % is no longer being reported.The previously reported component Basophils % is no longer being reported.The previously reported component Absolute Neutrophils is no longer being reported.The previously reported component Absolute Lymphocytes is no longer being reported.The previously reported component Absolute Monocytes is no longer being reported.The previously reported component Absolute Eosinophils is no longer being reported.The previously reported component Absolute Basophils is no longer being reported. Performed By: #### 1 6362-6 #### CHITO SIDDIQI ([id number]) [facility] ([facility]) [address] [place] [address] MCV (RBC) [Entitic vol] 85 fL Normal 80-100 [facility] Comment on above: Order Comment: The p reviously reported component Neutrophils % is no longer being reported.The previously reported component Lymphocytes % is no longer being reported.The previously reported component Monocytes % is no longer being reported.The previously reported component Eosinophils % is no longer being reported.The previously reported component Basophils % is no longer being reported.The previously reported component Absolute Neutrophils is no longer being reported.The previously reported component Absolute Lymphocytes is no longer being reported.The previously reported component Absolute Monocytes is no longer being reported.The previously reported component Absolute Eosinophils is no longer being reported.The previously reported component Absolute Basophils is no longer being reported. Performed By: #### 1 6362-6 #### CHITO SIDDIQI ([id number]) [facility] ([facility]) [address] [place] [address] Nucleated RBC/100 WBC (Bld) [Ratio] 0.0 /100 WBCs Normal 0.0-0.0 [facility] Comment on above: Order Comment: The p reviously reported component Neutrophils % is no longer being reported.The previously reported component Lymphocytes % is no longer being reported.The previously reported component Monocytes % is no longer being reported.The previously reported component Eosinophils % is no longer being reported.The previously reported component Basophils % is no longer being reported.The previously reported component Absolute Neutrophils is no longer being reported.The previously reported component Absolute Lymphocytes is no longer being reported.The previously reported component Absolute Monocytes is no longer being reported.The previously reported component Absolute Eosinophils is no longer being reported.The previously reported component Absolute Basophils is no longer being reported. Performed By: #### 1 6362-6 #### CHITO SIDDIQI ([id number]) [facility] ([facility]) [address] [place] [address] Platelets (Bld) [#/Vol] 97 x10*3/uL Low 150-450 [facility] Comment on above: Order Comment: The p reviously reported component Neutrophils % is no longer being reported.The previously reported component Lymphocytes % is no longer being reported.The previously reported component Monocytes % is no longer being reported.The previously reported component Eosinophils % is no longer being reported.The previously reported component Basophils % is no longer being reported.The previously reported component Absolute Neutrophils is no longer being reported.The previously reported component Absolute Lymphocytes is no longer being reported.The previously reported component Absolute Monocytes is no longer being reported.The previously reported component Absolute Eosinophils is no longer being reported.The previously reported component Absolute Basophils is no longer being reported. Performed By: #### 1 6362-6 #### CHITO SIDDIQI (39859) [facility] ([facility]) [address] [place], [place] [id number] RBC (Bld) [#/Vol] 4.31 x10*6/uL Normal 4.00-5.20 [facility] Comment on above: Order Comment: The p reviously reported component Neutrophils % is no longer being reported.The previously reported component Lymphocytes % is no longer being reported.The previously reported component Monocytes % is no longer being reported.The previously reported component Eosinophils % is no longer being reported.The previously reported component Basophils % is no longer being reported.The previously reported component Absolute Neutrophils is no longer being reported.The previously reported component Absolute Lymphocytes is no longer being reported.The previously reported component Absolute Monocytes is no longer being reported.The previously reported component Absolute Eosinophils is no longer being reported.The previously reported component Absolute Basophils is no longer being reported. Performed By: #### 1 6362-6 #### CHITO SIDDIQI ([id number]) [facility] ([facility]) [address] [place] [address] WBC (Bld) [#/Vol] 13.3 x10*3/uL High 4.4-11.3 [facility] Comment on above: Order Comment: The p reviously reported component Neutrophils % is no longer being reported.The previously reported component Lymphocytes % is no longer being reported.The previously reported component Monocytes % is no longer being reported.The previously reported component Eosinophils % is no longer being reported.The previously reported component Basophils % is no longer being reported.The previously reported component Absolute Neutrophils is no longer being reported.The previously reported component Absolute Lymphocytes is no longer being reported.The previously reported component Absolute Monocytes is no longer being reported.The previously reported component Absolute Eosinophils is no longer being reported.The previously reported component Absolute Basophils is no longer being reported. Performed By: #### 1 6362-6 #### CHITO SIDDIQI (28694) [facility] ([facility]) [address] [place] [address] Glucose Test strip manual (B ld) [Mass/Vol]on 07-04-2024 Glucose [Mass/Vol] 318 mg/dL High [address] [place] [address] Comment on above: Performed By: #### 1 6362-6 #### CHITO SIDDIQI (05147) [facility] ([facility]) [address] [place] [address] Glucose [Mass/Vol] 338 mg/dL High [address] [place] [address] Comment on above: Performed By: #### 1 6362-6 #### CHITO SIDDIQI ([id number]) [facility] ([facility]) [address] [place] [address] Glucose [Mass/Vol] 219 mg/dL High [address] [place] [address] Comment on above: Performed By: #### T HYDS #### CHITO SIDDIQI (70277) [facility] ([facility]) [address] [place] [address] Glucose [Mass/Vol] 158 mg/dL High [address] [place] [address] Comment on above: Performed By: #### T HYDS #### CHITO SIDDIQI ([id number]) [facility] ([facility]) [address] [place] [address] Manual differential performe d Ql (Bld)on 07-04-2024 Basophils (Bld) [#/Vol] 0.00 x10*3/uL Normal 0.00-0.10 [facility] Comment on above: Performed By: #### 1 6362-6 #### CHITO SIDDIQI (02512) [facility] ([facility]) [address] [place] [address] Basophils/100 WBC (Bld) 0.0 % Normal 0.0-2.0 [facility] Comment on above: Performed By: #### 1 6362-6 #### CHITO SIDDIQI ([id number]) [facility] ([facility]) [address] [place] [address] Cells Counted Total (Bld) [#] 100 Normal [facility] Comment on above: Performed By: #### 1 6362-6 #### CHITO SIDDIQI (25443) [facility] ([facility]) [address] [place] [address] Eosinophils (Bld) [#/Vol] 0.00 x10*3/uL Normal 0.00-0.70 [facility] Comment on above: Performed By: #### 1 6362-6 #### CHITO SIDDIQI (10408) [facility] ([facility]) [address] [place] [address] Eosinophils/100 WBC (Bld) 0.0 % Normal 0.0-6.0 [facility] Comment on above: Performed By: #### 1 6362-6 #### CHITO SIDDIQI (61613) [facility] ([facility]) [address] [place] [address] Lymphocytes (Bld) [#/Vol] 0.67 x10*3/uL Low 1.20-4.80 [facility] Comment on above: Performed By: #### 1 6362-6 #### CHITO SIDDIQI ([id number]) [facility] ([facility]) [address] [place] [address] Lymphocytes/100 WBC (Bld) 5.0 % Normal 13.0-44.0 [facility] Comment on above: Performed By: #### 1 6362-6 #### CHITO SIDDIQI ([id number]) [facility] ([facility]) [address] [place] [address] Metamyelocytes (Bld) [#/Vol] 0.27 x10*3/uL Normal 0.00-0.00 [facility] Comment on above: Performed By: #### 1 6362-6 #### CHITO SIDDIQI (36175) [facility] ([facility]) [address] [place] [address] Metamyelocytes/100 WBC (Bld) 2.0 % Normal 0.0-0.0 [facility] Comment on above: Performed By: #### 1 6362-6 #### CHITO SIDDIQI (05258) [facility] ([facility]) [address] [place] [address] Monocytes (Bld) [#/Vol] 0.67 x10*3/uL Normal 0.10-1.00 [facility] Comment on above: Performed By: #### 1 6362-6 #### CHITO SIDDIQI (97420) [facility] ([facility]) [address] [place] [address] Monocytes/100 WBC (Bld) 5.0 % Normal 2.0-10.0 [facility] Comment on above: Performed By: #### 1 6362-6 #### CHITO SIDDIQI (55426) [facility] ([facility]) [address] [place] [address] RBC morphology finding Nom (Bld) No significant RBC morphology present Normal [facility] Comment on above: Performed By: #### 1 6362-6 #### CHITO SIDDIQI (18357) [facility] ([facility]) [address] [place] [address] Segmented neutrophils (Bld) [#/Vol] 11.70 x10*3/uL High 1.20-7.00 [facility] Comment on above: Performed By: #### 1 6362-6 #### CHITO SIDDIQI (60265) [facility] ([facility]) [address] [place] [address] Segmented neutrophils/100 WBC (Bld) 88.0 % Normal 40.0-80.0 [facility] Comment on above: Result Comment: Perc ent differential counts (%) should be interpreted in the context of the absolute cell counts (cells/uL). Performed By: #### 1 6362-6 #### CHITO SIDDIQI (30094) [facility] ([facility]) [facility] [place] [address] US RENAL COMPLETEon 07-05-19 US RENAL COMPLETE Interpreted By: Cordelia Shukla, STUDY: US RENAL COMPLETE; 07/04/2024 5:56 pm INDICATION: Signs/Symptoms:4.1 mm calculus at the left UVJ with mild associated hydroureteronephrosis on admission CT; WBC remains elevated. Follow-up obstructive uropathy. COMPARISON: None. ACCESSION NUMBER(S): [id number] ORDERING CLINICIAN: TUAN JOHNSONEL TECHNIQUE: Grayscale and color Doppler imaging of the kidneys. FINDINGS: The right kidney measures 13.2 cm in length. There is a 4 mm shadowing echogenic focus within right kidney with associated twinkle artifact consistent with a nonobstructing stone. There is a 0.8 x 1.1 x 1.2 cm cyst in the upper pole of right kidney noted. The left kidney measures 13.4 cm in length. No hydronephrosis or solid renal mass on either side is observed. The renal cortical thickness and echogenicity is normal. There is no evidence for left renal calculus. The urinary bladder is normal in appearance. Bilateral ureteral jets are observed. IMPRESSION: 3 mm nonobstructing right renal calculus. 0.8 x 1.1 x 1.2 cm right renal cyst. No residual hydronephrosis of the left kidney. No left renal calculus. MACRO: None. Signed by: Cordelia Shukla 07/05/2024 5:30 AM Dictation workstation: [id number] Normal [facility] Calcidiolon 07-03-2024 25-hydroxyvitamin D3 [Mass/Vol] 21 ng/mL Low 30-100 [facility] Comment on above: Order Comment: TSH t esting is performed using different testing methodology at [facility] than at other [facility]. Direct result comparisons should only be made within the same method. Performed By: #### T HYDS #### CHITO SIDDIQI (95069) [facility] ([facility]) [address] [place] [id number] Cobalaminson 07-03-2024 Cobalamin (Vitamin B12) [Mass/Vol] 706 pg/mL Normal 211-911 [facility] Comment on above: Performed By: #### T HYDS #### CHITO SIDDIQI (22373) [facility] ([facility]) [address] [place] [id number] Folateon 07-03-2024 Folate [Mass/Vol] 6.2 ng/mL Normal >5.0 [facility] Comment on above: Order Comment: TSH t esting is performed using different testing methodology at [facility] than at other [facility]. Direct result comparisons should only be made within the same method. Performed By: #### T HYDS #### CHITO SIDDIQI (57563) [facility] ([facility]) [address] [place] [address] Glucose Test strip manual (B ld) [Mass/Vol]on 07-03-2024 Glucose [Mass/Vol] 328 mg/dL High 74-99 [facility] Comment on above: Performed By: #### T HYDS #### CHITO SIDDIQI (55876) [facility] ([facility]) [address] [place] [address] Glucose [Mass/Vol] 253 mg/dL High 74-99 [facility] Comment on above: Performed By: #### T HYDS #### CHITO SIDDIQI (34712) [facility] ([facility]) [address] [place] [address] Glucose [Mass/Vol] 108 mg/dL High 7499 [facility] Comment on above: Performed By: #### T HYDS #### CHITO SIDDIQI (86806) [facility] ([facility]) [address] [place] [address] Glucose [Mass/Vol] 78 mg/dL Normal 74-99 [facility] Comment on above: Performed By: #### T HYDS #### CHITO SIDDIQI (10038) [facility] ([facility]) [address] [place] [address] Glucose [Mass/Vol] 99 mg/dL Normal 74-99 [facility] Comment on above: Performed By: #### 2 524-7 #### CHITO SIDDIQI (45280) [facility] ([facility]) [address] [place] [address] Glucose [Mass/Vol] 88 mg/dL Normal 74-99 [facility] Comment on above: Performed By: #### 2 524-7 #### CHITO SIDDIQI (85602) [facility] ([facility]) [address] [place] [address] Glucose [Mass/Vol] 99 mg/dL Normal 74-99 [facility] Comment on above: Performed By: #### 2 524-7 #### CHITO SIDDIQI (94781) [facility] ([facility]) [address] [place] [address] Glucose [Mass/Vol] 130 mg/dL High 74-99 [facility] Comment on above: Performed By: #### 2 524-7 #### CHITO SIDDIQI (23929) [facility] ([facility]) [address] [place] [address] CBC panel Auto (Bld)on 07-02 Erythrocyte distribution width (RBC) [Ratio] 13.9 % Normal 11.5-14.5 [facility] Comment on above: Performed By: #### D RUBL #### CHITO SIDDIQI (70783) [facility] ([facility]) [address] [place] [address] Hematocrit (Bld) [Volume fraction] 33.6 % Low 36.0-46.0 [facility] Comment on above: Performed By: #### D RUBL #### CHITO SIDDIQI (49224) [facility] ([facility]) [address] [place] [address] Hemoglobin (Bld) [Mass/Vol] 10.9 g/dL Low 12.0-16.0 [facility] Comment on above: Performed By: #### D RUBL #### CHITO SIDDIQI (32658) [facility] ([facility]) [address] [place] [address] MCH (RBC) [Entitic mass] 28.0 pg Normal 26.0-34.0 [facility] Comment on above: Performed By: #### Tony RUBL #### CHITO SIDDIQI (63102) [facility] ([facility]) [address] [place] [id number] MCHC (RBC) [Mass/Vol] 32.4 g/dL Normal 32.0-36.[address] [facility] Comment on above: Performed By: #### Tony RUBL #### CHITO SIDDIQI (26825) [facility] ([facility]) [address] [place] [id number] MCV (RBC) [Entitic vol] 86 fL Normal 80-100 [facility] Comment on above: Performed By: #### Tony RUBL #### CHITO SIDDIQI (14884) [facility] ([facility]) [address] [place] [id number] Nucleated RBC/100 WBC (Bld) [Ratio] 0.0 /100 WBCs Normal 0.0-0.0 [facility] Comment on above: Performed By: #### Tony RUBL #### CHITO SIDDIQI (77272) [facility] ([facility]) [address] [place] [address] Platelets (Bld) [#/Vol] 67 x10*3/uL Low 150-450 [facility] Comment on above: Performed By: #### Tony RUBL #### CHITO SIDDIQI (80263) [facility] ([facility]) [address] [place] [address] RBC (Bld) [#/Vol] 3.89 x10*6/uL Low 4.00-5.20 [facility] Comment on above: Performed By: #### Tony RUBL #### CHITO SIDDIQI (06813) [facility] ([facility]) [address] [place] [id number] WBC (Bld) [#/Vol] 13.4 x10*3/uL High 4.4-11.3 [facility] Comment on above: Performed By: #### Tony OSBORN #### CHITO SIDDIQI (98544) [facility] ([facility]) [address] [place] [address] Glucose Test strip manual (B ld) [Mass/Vol]on 07-02-2024 Glucose [Mass/Vol] 153 mg/dL High [address] [place] [address] Comment on above: Performed By: #### 2 524-7 #### CHITO SIDDIQI (49213) [facility] ([facility]) [address] [place] [address] Glucose [Mass/Vol] 150 mg/dL High [address] [place] [address] Comment on above: Performed By: #### 2 524-7 #### CHITO SIDDIQI (05272) [facility] ([facility]) [address] [place] [address] Glucose [Mass/Vol] 174 mg/dL High [address] [place] [address] Comment on above: Performed By: #### 2 524-7 #### CHITO SIDDIQI (68336) [facility] ([facility]) [address] [place] [address] Glucose [Mass/Vol] 204 mg/dL High [address] [place] [address] Comment on above: Performed By: #### 2 524-7 #### CHITO SIDDIQI (36470) [facility] ([facility]) [address] [place] [address] Glucose [Mass/Vol] 214 mg/dL High [address] [place] [address] Comment on above: Performed By: #### 2 524-7 #### CHITO SIDDIQI (21266) [facility] ([facility]) [address] [place] [address] Glucose [Mass/Vol] 197 mg/dL High [address] [place] [address] Comment on above: Performed By: #### 2 524-7 #### CHITO SIDDIQI (56991) [facility] ([facility]) [address] [place] [address] Glucose [Mass/Vol] 162 mg/dL High [address] [place] [address] Comment on above: Performed By: #### D RUBL #### CHITO SIDDIQI (97213) [facility] ([facility]) [address] [place] [address] Glucose [Mass/Vol] 165 mg/dL High [address] [place] [address] Comment on above: Performed By: #### D RUBL #### CHITO SIDDIQI (86979) [facility] ([facility]) [address] [place] [address] Glucose [Mass/Vol] 157 mg/dL High [address] [place] [address] Comment on above: Performed By: #### D RUBL #### CHITO SIDDIQI (28382) [facility] ([facility]) [address] [place] [address] Glucose [Mass/Vol] 172 mg/dL High [address] [place] [address] Comment on above: Performed By: #### D RUBL #### CHITO SIDDIQI (57942) [facility] ([facility]) [address] [place] [address] Glucose [Mass/Vol] 198 mg/dL High [address] [place] [address] Comment on above: Performed By: #### D RUBL #### CHITO SIDDIQI (05728) [facility] ([facility]) [address] [place] [address] Glucose [Mass/Vol] 231 mg/dL High [address] [place] [address] Comment on above: Performed By: #### D RUBL #### CHITO SIDDIQI (73981) [facility] ([facility]) [address] [place] [address] Glucose [Mass/Vol] 193 mg/dL High [address] [place] [address] Comment on above: Performed By: #### D RUBL #### CHITO SIDDIQI (72660) [facility] ([facility]) [address] [place] [address] Glucose [Mass/Vol] 191 mg/dL High 74-99 [facility] Comment on above: Performed By: #### D RUBL #### CHITO SIDDIQI (91157) [facility] ([facility]) [address] [place] [address] Glucose [Mass/Vol] 215 mg/dL High 74-99 [facility] Comment on above: Performed By: #### 5 7021-8 #### CHITO SIDDIQI (85048) [facility] ([facility]) [address] [place] [address] Glucose [Mass/Vol] 217 mg/dL High 74-99 [facility] Comment on above: Performed By: #### 5 7021-8 #### CHITO SIDDIQI (12134) [facility] ([facility]) [address] [place] [address] Glucose [Mass/Vol] 245 mg/dL High 74-99 [facility] Comment on above: Performed By: #### 5 7021-8 #### CHITO SIDDIQI (51794) [facility] ([facility]) [address] [place] [address] Renal function 2000 panelon 07-02-2024 Albumin BCP dye [Mass/Vol] 2.7 g/dL Low 3.4-5.0 [facility] Comment on above: Performed By: #### D RUBL #### CHITO SIDDIQI (82257) [facility] ([facility]) [address] [place] [address] Anion gap [Moles/Vol] 9 mmol/L Low 10-[address] [facility] Comment on above: Performed By: #### D RUBL #### CHITO SIDDIQI (40722) [facility] ([facility]) [address] [place] [address] Calcium [Mass/Vol] 8.8 mg/dL Normal 8.6-10.3 [facility] Comment on above: Performed By: #### D RUBL #### CHITO SIDDIQI (04188) [facility] ([facility]) [address] [place] [address] Chloride [Moles/Vol] 109 mmol/L High 98-107 [facility] Comment on above: Performed By: #### D RUBL #### CHITO SIDDIQI (11242) [facility] ([facility]) [address] [place] [address] CO2 [Moles/Vol] 25 mmol/L Normal 21-32 [facility] Comment on above: Performed By: #### D RUBL #### CHITO SIDDIQI (54904) [facility] ([facility]) [address] [place] [address] Creatinine [Mass/Vol] 0.81 mg/dL Normal 0.50-1.[address] [facility] Comment on above: Performed By: #### D RUBL #### CHITO SIDDIQI (67085) [facility] ([facility]) [address] [place] [address] Glomerular filtration rate/1.73 sq M.predicted 87 mL/min/1.73m*2 Normal >60 [facility] Comment on above: Result Comment: Calc ulations of estimated GFR are performed using the 2020 CKD-EPI Study Refit equation without the race variable for the IDMS-Traceable creatinine methods. https://jasn.asnjournals.org/content/early//ASN.626187 8272 Performed By: #### D RUBL #### CHITO SIDDIQI (59193) [facility] ([facility]) [address] [place] [address] Glucose [Mass/Vol] 212 mg/dL High 74-99 [facility] Comment on above: Performed By: #### D RUBL #### CHITO SIDDIQI (80250) [facility] ([facility]) [address] [place] [address] Phosphate [Mass/Vol] 1.9 mg/dL Low 2.5-4.9 [facility] Comment on above: Result Comment: The performance characteristics of phosphorus testing in heparinized plasma have been validated by the individual laboratory site where testing is performed. Testing on heparinized plasma is not approved by the FDA; however, such approval is not necessary. Performed By: #### D RUBL #### CHITO SIDDIQI (11548) [facility] ([facility]) [address] [place] [address] Potassium [Moles/Vol] 3.9 mmol/L Normal 3.5-5.[address] [facility] Comment on above: Performed By: #### D RUBL #### CHITO SIDDIQI (20506) [facility] ([facility]) [address] [place] [address] Sodium [Moles/Vol] 139 mmol/L Normal 136-145 [facility] Comment on above: Performed By: #### Tony RUBL #### CHITO SIDDIQI (08323) [facility] ([facility]) [address] [place] [address] Urea nitrogen [Mass/Vol] 49 mg/dL High 6-23 [facility] Comment on above: Performed By: #### Tony RUBL #### CHITO SIDDIQI (45277) [facility] ([facility]) [address] [place] [address]114[address] CBC panel Auto (Bld)on 07-01 Erythrocyte distribution width (RBC) [Ratio] 14.0 % Normal 11.5-14.5 [facility] Comment on above: Performed By: #### 5 0957-0 #### CHITO SIDDIQI (21214) [facility] ([facility]) [address] [place] [address] Hematocrit (Bld) [Volume fraction] 33.6 % Low 36.0-46.0 [facility] Comment on above: Performed By: #### 5 0957-0 #### CHITO SIDDIQI (43759) [facility] ([facility]) [address] [place] [address] Hemoglobin (Bld) [Mass/Vol] 11.0 g/dL Low 12.0-16.0 [facility] Comment on above: Performed By: #### 5 0957-0 #### CHITO SIDDIQI (51273) [facility] ([facility]) [address] [place] [address] MCH (RBC) [Entitic mass] 28.1 pg Normal 26.0-34.0 [facility] Comment on above: Performed By: #### 5 0957-0 #### CHITO SIDDIQI (17917) [facility] ([facility]) [address] [place] [address] MCHC (RBC) [Mass/Vol] 32.7 g/dL Normal 32.0-36.[address] [facility] Comment on above: Performed By: #### 5 57-0 #### CHITO SIDDIQI (22005) [facility] ([facility]) [address] [place] [address] MCV (RBC) [Entitic vol] 86 fL Normal 80-100 [facility] Comment on above: Performed By: #### 5 57-0 #### CHITO SIDDIQI (71306) [facility] ([facility]) [address] [place] [address] Nucleated RBC/100 WBC (Bld) [Ratio] 0.0 /100 WBCs Normal 0.0-0.0 [facility] Comment on above: Performed By: #### 5 0957-0 #### CHITO SIDDIQI (71541) [facility] ([facility]) [address] [place] [id number] Platelets (Bld) [#/Vol] 50 x10*3/uL Low 150-450 [facility] Comment on above: Performed By: #### 5 0957-0 #### CHITO SIDDIQI (83156) [facility] ([facility]) [address] [place] [address] RBC (Bld) [#/Vol] 3.92 x10*6/uL Low 4.00-5.20 [facility] Comment on above: Performed By: #### 5 0957-0 #### CHITO SIDDIQI (48765) [facility] ([facility]) [address] [place] [address] WBC (Bld) [#/Vol] 10.7 x10*3/uL Normal 4.4-11.3 [facility] Comment on above: Performed By: #### 5 0957-0 #### CHITO SIDDIQI (34931) [facility] ([facility]) [address] [place] [address] Glucose Test strip manual (B ld) [Mass/Vol]on 07-01-2024 Glucose [Mass/Vol] 361 mg/dL High [address] [place] [address] Comment on above: Performed By: #### 5 7021-8 #### CHITO SIDDIQI (76150) [facility] ([facility]) [address] [place] [address] Glucose [Mass/Vol] 362 mg/dL [address] Comment on above: Performed By: #### 5 7021-8 #### CHITO SIDDIQI (76759) [facility] ([facility]) [address] [place] [address] Glucose [Mass/Vol] 365 mg/dL [address] Comment on above: Performed By: #### 5 7021-8 #### CHITO SIDDIQI (04245) [facility] ([facility]) [address] [place] [address] Glucose [Mass/Vol] 395 mg/dL [address] Comment on above: Performed By: #### 5 7021-8 #### CHITO SIDDIQI (45518) [facility] ([facility]) [address] [place] [address] Glucose [Mass/Vol] 419 mg/dL [address] Comment on above: Performed By: #### 5 7021-8 #### CHITO SIDDIQI (72206) [facility] ([facility]) [address] [place] [address] Glucose [Mass/Vol] 480 mg/dL [address] Comment on above: Result Comment: MD Arley cho Performed By: #### 5 7021-8 #### CHITO SIDDIQI (89122) [facility] ([facility]) [address] [place] [address] Glucose [Mass/Vol] 453 mg/dL High 74-99 [facility] Comment on above: Result Comment: RN N OTIFIED Performed By: #### 5 0957-0 #### CHITO SIDDIQI (18821) [facility] ([facility]) [address] [place] [address] Glucose [Mass/Vol] 465 mg/dL High -99 [facility] Comment on above: Result Comment: RN N OTIFIED Performed By: #### 5 0957-0 #### CHITO SIDDIQI (44094) [facility] ([facility]) [address] [place] [address] Glucose [Mass/Vol] 377 mg/dL High [address] [place] [address] Comment on above: Performed By: #### 5 0957-0 #### CHITO SIDDIQI (44191) [facility] ([facility]) [address] [place] [address] Glucose [Mass/Vol] 390 mg/dL High -[address] [place] [address] Comment on above: Performed By: #### 5 0957-0 #### CHITO SIDDIQI (40693) [facility] ([facility]) [address] [place] [address] Renal function 2000 panelon 07-01-2024 Albumin BCP dye [Mass/Vol] 2.7 g/dL Low 3.4-5.0 [facility] Comment on above: Performed By: #### 5 7021-8 #### CHITO SIDDIQI (27356) [facility] ([facility]) [address] [place] [address] Anion gap [Moles/Vol] 11 mmol/L Normal 10-[address] [facility] Comment on above: Performed By: #### 5 7021-8 #### CHITO SIDDIQI (24479) [facility] ([facility]) [address] [place] [address] Calcium [Mass/Vol] 8.7 mg/dL Normal 8.6-10.3 [facility] Comment on above: Performed By: #### 5 7021-8 #### CHITO SIDDIQI (82429) [facility] ([facility]) [address] [place] [address] Chloride [Moles/Vol] 103 mmol/L Normal 98-107 [facility] Comment on above: Performed By: #### 5 7021-8 #### CHITO SIDDIQI (08161) [facility] ([facility]) [address] [place] [address] CO2 [Moles/Vol] 23 mmol/L Normal 21-32 [facility] Comment on above: Performed By: #### 5 7021-8 #### CHITO SIDDIQI (31467) [facility] ([facility]) [address] [place] [address] Creatinine [Mass/Vol] 0.96 mg/dL Normal 0.50-1.[address] [facility] Comment on above: Performed By: #### 5 7021-8 #### CHITO SIDDIQI (16901) [facility] ([facility]) [address] [place] [address] Glomerular filtration rate/1.73 sq M.predicted 71 mL/min/1.73m*2 Normal >60 [facility] Comment on above: Result Comment: Calc ulations of estimated GFR are performed using the 2020 CKD-EPI Study Refit equation without the race variable for the IDMS-Traceable creatinine methods. https://jasn.asnjournals.org/content//ASN.677038 1361 Performed By: #### 5 7021-8 #### CHITO SIDDIQI (67702) [facility] ([facility]) [address] [place] [address] Glucose [Mass/Vol] 439 mg/dL High 74-99 [facility] Comment on above: Performed By: #### 5 7021-8 #### CHITO SIDDIQI (24363) [facility] ([facility]) [address] [place] [address] Phosphate [Mass/Vol] 1.6 mg/dL Low 2.5-4.9 [facility] Comment on above: Result Comment: The performance characteristics of phosphorus testing in heparinized plasma have been validated by the individual laboratory site where testing is performed. Testing on heparinized plasma is not approved by the FDA; however, such approval is not necessary. Performed By: #### 5 7021-8 #### CHITO SIDDIQI (81120) [facility] ([facility]) [address] [place] [address] Potassium [Moles/Vol] 4.1 mmol/L Normal 3.5-5.[address] [facility] Comment on above: Performed By: #### 5 7021-8 #### CHITO SIDDIQI (52696) [facility] ([facility]) [address] [place] [address] Sodium [Moles/Vol] 133 mmol/L Low 136-145 [place] [facility] Comment on above: Performed By: #### 5 7021-8 #### CHITO SIDDIQI (11473) [facility] ([facility]) [address] [place] [address] Urea nitrogen [Mass/Vol] 51 mg/dL High 6-23 [facility] Comment on above: Performed By: #### 5 7021-8 #### CHITO SIDDIQI (28252) [facility] ([facility]) [address] [place] [address] Albumin BCP dye [Mass/Vol] 2.7 g/dL Low 3.4-5.0 [facility] Comment on above: Performed By: #### 5 0957-0 #### CHITO SIDDIQI (85873) [facility] ([facility]) [address] [place] [address] Anion gap [Moles/Vol] 8 mmol/L Low 10-[address] [facility] Comment on above: Performed By: #### 5 0957-0 #### CHITO SIDDIQI (21914) [facility] ([facility]) [address] [place] [address] Calcium [Mass/Vol] 8.1 mg/dL Low 8.6-10.3 [facility] Comment on above: Performed By: #### 5 0957-0 #### CHITO SIDDIQI (66283) [facility] ([facility]) [address] [place] [address] Chloride [Moles/Vol] 106 mmol/L Normal 98-107 [facility] Comment on above: Performed By: #### 5 0957-0 #### CHITO SIDDIQI (74536) [facility] ([facility]) [address] [place] [address] CO2 [Moles/Vol] 24 mmol/L Normal 21-32 [facility] Comment on above: Performed By: #### 5 0957-0 #### CHITO SIDDIQI (20395) [facility] ([facility]) [address] [place] [address] Creatinine [Mass/Vol] 0.73 mg/dL Normal 0.50-1.[address] [facility] Comment on above: Performed By: #### 5 0957-0 #### CHITO SIDDIQI (39510) [facility] ([facility]) [address] [place] [address] GFR/1.73 sq M.predicted MDRD (S/P/Bld) [Vol rate/Area] mL/min/{1.73_m2} Normal >60 [facility] Comment on above: Result Comment: Calc ulations of estimated GFR are performed using the 2020 CKD-EPI Study Refit equation without the race variable for the IDMS-Traceable creatinine methods. https://jasn.asnjournals.org/content/early//ASN.630759 2849 Performed By: #### 5 0957-0 #### CHITO SIDDIQI (06427) [facility] ([facility]) [address] [place] [address] Glucose [Mass/Vol] 408 mg/dL High 74-99 [facility] Comment on above: Performed By: #### 5 0957-0 #### CHITO SIDDIQI (42221) [facility] ([facility]) [address] [place] [address] Phosphate [Mass/Vol] 2.8 mg/dL Normal 2.5-4.9 [facility] Comment on above: Result Comment: The performance characteristics of phosphorus testing in heparinized plasma have been validated by the individual laboratory site where testing is performed. Testing on heparinized plasma is not approved by the FDA; however, such approval is not necessary. Performed By: #### 5 0957-0 #### CHITO SIDDIQI (71311) [facility] ([facility]) [address] [place] [address] Potassium [Moles/Vol] 4.4 mmol/L Normal 3.5-5.[address] [facility] Comment on above: Performed By: #### 5 0957-0 #### CHITO SIDDIQI (72115) [facility] ([facility]) [address] [place] [address] Sodium [Moles/Vol] 134 mmol/L Low 136-145 [facility] Comment on above: Performed By: #### 5 0957-0 #### CHITO SIDDIQI (94125) [facility] ([facility]) [address] [place] [address] Urea nitrogen [Mass/Vol] 42 mg/dL High 6-23 [facility] Comment on above: Performed By: #### 5 0957-0 #### CHITO SIDDIQI (29271) [facility] ([facility]) [address] [place] [address] CBC panel Auto (Bld)on 06-30 Erythrocyte distribution width (RBC) [Ratio] 13.7 % Normal 11.5-14.5 [facility] Comment on above: Performed By: #### 9 5423-0 #### CHITO SIDDIQI (69836) [facility] ([facility]) [address] [place] [address] Hematocrit (Bld) [Volume fraction] 35.6 % Low 36.0-46.0 [facility] Comment on above: Performed By: #### 9 5423-0 #### CHITO SIDDIQI (08828) [facility] ([facility]) [address] [place] [address] Hemoglobin (Bld) [Mass/Vol] 11.8 g/dL Low 12.0-16.0 [facility] Comment on above: Performed By: #### 9 5423-0 #### CHITO SIDDIQI (37417) [facility] ([facility]) [address] [place] [address] MCH (RBC) [Entitic mass] 28.4 pg Normal 26.0-34.0 [facility] Comment on above: Performed By: #### 9 5423-0 #### CHITO SIDDIQI (46266) [facility] ([facility]) [address] [place] [address] MCHC (RBC) [Mass/Vol] 33.1 g/dL Normal 32.0-36.[address] [facility] Comment on above: Performed By: #### 9 5423-0 #### CHITO SIDDIQI (08745) [facility] ([facility]) [address] [place] [address] MCV (RBC) [Entitic vol] 86 fL Normal 80-100 [facility] Comment on above: Performed By: #### 9 5423-0 #### CHITO SIDDIQI (60568) [facility] ([facility]) [address] [place] [address] Nucleated RBC/100 WBC (Bld) [Ratio] 0.0 /100 WBCs Normal 0.0-0.0 [facility] Comment on above: Performed By: #### 9 5423-0 #### CHITO SIDDIQI (28041) [facility] ([facility]) [address] [place] [address] Platelets (Bld) [#/Vol] 58 x10*3/uL Low 150-450 [facility] Comment on above: Performed By: #### 9 5423-0 #### CHITO SIDDIQI (88748) [facility] ([facility]) [address] [place] [address] RBC (Bld) [#/Vol] 4.16 x10*6/uL Normal 4.00-5.20 [facility] Comment on above: Performed By: #### 9 5423-0 #### CHITO SIDDIQI (50232) [facility] ([facility]) [address] [place] [address] WBC (Bld) [#/Vol] 8.6 x10*3/uL Normal 4.4-11.3 [facility] Comment on above: Performed By: #### 9 5423-0 #### CHITO SIDDIQI (03733) [facility] ([facility]) [address] [place] [address] Gas and Carbon monoxide and Electrolytes panel (BldA)on 06-30-2024 Anion gap 4 (BldA) [Moles/Vol] 12 mmo/L Normal 10-25 [facility] Comment on above: Performed By: #### 9 5423-0 #### CHITO SIDDIQI (24926) [facility] ([facility]) [address] [place] [address] Base excess Calc (Bld) [Moles/Vol] -3.8000 mmol/L Low -2.0-3.0 [facility] Comment on above: Performed By: #### 9 5423-0 #### CHITO SIDDIQI (06689) [facility] ([facility]) [address] [place], [place] [address] Calcium.ionized (BldA) [Moles/Vol] 1.17 mmol/L Normal 1.10-1.33 [facility] Comment on above: Performed By: #### 9 5423-0 #### CHITO SIDDIQI (18994) [facility] ([facility]) [address] [place] [address] Chloride (BldA) [Moles/Vol] 102 mmol/L Normal 98-107 [facility] Comment on above: Performed By: #### 9 5423-0 #### CHITO SIDDIQI (25502) [facility] ([facility]) [address] [place] [address] CO2 (Bld) [Partial pressure] 35 mm Hg Low 38-42 [facility] Comment on above: Performed By: #### 9 5423-0 #### CHITO SIDDIQI (72911) [facility] ([facility]) [address] [place] [address] Glucose [Mass/Vol] 318 mg/dL High 74-99 [facility] Comment on above: Performed By: #### 9 5423-0 #### CHITO SIDDIQI (76435) [facility] ([facility]) [address] [place] [address] HCO3 (Bld) [Moles/Vol] 20.7 mmol/L Low 22.0-26.0 [facility] Comment on above: Performed By: #### 9 5423-0 #### CHITO SIDDIQI (85614) [facility] ([facility]) [address] [place] [address] Hematocrit Est (Bld) [Volume fraction] 39.0 % Normal 36.0-46.0 [facility] Comment on above: Performed By: #### 9 5423-0 #### CHITO SIDDIQI (33619) [facility] ([facility]) [address] [place] [address] Hemoglobin (Bld) [Mass/Vol] 13.0 g/dL Normal 12.0-16.0 [facility] Comment on above: Performed By: #### 9 5423-0 #### CHITO SIDDIQI (13746) [facility] ([facility]) [address] [place] [address] Inhaled oxygen concentration 28 % Normal [facility] Comment on above: Performed By: #### 9 5423-0 #### CHITO SIDDIQI (62624) [facility] ([facility]) [address] [place] [address] Lactate (BldA) [Moles/Vol] 2.7 mmol/L High 0.4-2.0 [facility] Comment on above: Performed By: #### 9 5423-0 #### CHITO SIDDIQI (39033) [facility] ([facility]) [address] [place] [address] Oxygen (Bld) [Partial pressure] 86 mm Hg Normal 85-95 [facility] Comment on above: Performed By: #### 9 5423-0 #### CHITO SIDDIQI (85453) [facility] ([facility]) [address] [place] [address] Oxyhemoglobin (BldA) [Mass fraction] 96.3 % Normal 94.0-98.0 [facility] Comment on above: Performed By: #### 9 5423-0 #### CHITO SIDDIQI (65923) [facility] ([facility]) [address] [place] [address] pH (Bld) 7.38 [pH] Normal 7.38-7.42 [facility] Comment on above: Performed By: #### 9 5423-0 #### CHITO SIDDIQI (82259) [facility] ([facility]) [address] [place], [place] [address] Potassium (BldA) [Moles/Vol] 3.6 mmol/L Normal 3.5-5.3 [facility] Comment on above: Performed By: #### 9 5423-0 #### CHITO SIDDIQI (93528) [facility] ([facility]) [address] [place] [address] Sodium (BldA) [Moles/Vol] 131 mmol/L Low 136-145 [facility] Comment on above: Performed By: #### 9 5423-0 #### CHITO SIDDIQI (31308) [facility] ([facility]) [address] [place] [address] Glucose Test strip manual (B ld) [Mass/Vol]on 06-30-2024 Glucose [Mass/Vol] 339 mg/dL High [address] [place] [address] Comment on above: Performed By: #### 5 0957-0 #### CHITO SIDDIQI (49964) [facility] ([facility]) [address] [place] [address] Glucose [Mass/Vol] 322 mg/dL High [address] [place] [address] Comment on above: Performed By: #### 5 0957-0 #### CHITO SIDDIQI (79992) [facility] ([facility]) [address] [place] [address] Glucose [Mass/Vol] 283 mg/dL High 74-99 [facility] Comment on above: Performed By: #### 9 5423-0 #### CHITO SIDDIQI (05161) [facility] ([facility]) [address] [place] [address] Lactateon 06-30-2024 Lactate [Moles/Vol] 3.4 mmol/L High 0.4-2.0 [facility] Comment on above: Order Comment: This assay is an FDA-cleared, in vitro diagnostic nucleic acid amplification test for the qualitative detection and differentiation of SARS CoV-2/ Influenza A/B from nasopharyngeal specimens collected from individuals with signs and symptoms of respiratory tract infections, and has been validated for use at [facility]. Negative results do not preclude COVID-19/ Influenza A/B infections and should not be used as the sole basis for diagnosis, treatment, or other management decisions. Testing for SARS CoV-2 is recommended only for patients who meet current clinical and/or epidemiological criteria defined by federal, state, or local public health directives. Performed By: #### 9 5423-0 #### CHITO SIDDIQI (31917) [facility] ([facility]) [address] [place] [address] Renal function 2000 panelon 06-30-2024 Albumin BCP dye [Mass/Vol] 2.7 g/dL Low 3.4-5.0 [facility] Comment on above: Performed By: #### 9 5423-0 #### CHITO SIDDIQI (35451) [facility] ([facility]) [address] [place] [address] Anion gap [Moles/Vol] 13 mmol/L Normal 10-[address] [facility] Comment on above: Performed By: #### 9 5423-0 #### CHITO SIDDIQI (89418) [facility] ([facility]) [address] [place] [address] Calcium [Mass/Vol] 8.0 mg/dL Low 8.6-10.3 [facility] Comment on above: Performed By: #### 9 5423-0 #### CHITO SIDDIQI (11347) [facility] ([facility]) [address] [place] [address] Chloride [Moles/Vol] 104 mmol/L Normal 98-107 [facility] Comment on above: Performed By: #### 9 5423-0 #### CHITO SIDDIQI (46823) [facility] ([facility]) [address] [place] [address] CO2 [Moles/Vol] 21 mmol/L Normal 21-32 [facility] Comment on above: Performed By: #### 9 5423-0 #### CHITO SIDDIQI (36986) [facility] ([facility]) [address] [place] [address] Creatinine [Mass/Vol] 1.15 mg/dL High 0.50-1.[address] [facility] Comment on above: Performed By: #### 9 5423-0 #### CHITO SIDDIQI (67218) [facility] ([facility]) [address] [place] [address] Glomerular filtration rate/1.73 sq M.predicted 57 mL/min/1.73m*2 Low >60 [facility] Comment on above: Result Comment: Calc ulations of estimated GFR are performed using the 2020 CKD-EPI Study Refit equation without the race variable for the IDMS-Traceable creatinine methods. https://jasn.asnjournals.org/content//ASN.171014 7918 Performed By: #### 9 5423-0 #### CHITO SIDDIQI (95850) [facility] ([facility]) [address] [place] [address] Glucose [Mass/Vol] 234 mg/dL High 74-99 [facility] Comment on above: Performed By: #### 9 5423-0 #### CHITO SIDDIQI (88766) [facility] ([facility]) [address] [place] [address] Phosphate [Mass/Vol] 5.4 mg/dL High 2.5-4.9 [facility] Comment on above: Result Comment: The performance characteristics of phosphorus testing in heparinized plasma have been validated by the individual laboratory site where testing is performed. Testing on heparinized plasma is not approved by the FDA; however, such approval is not necessary. Performed By: #### 9 5423-0 #### CHITO SIDDIQI (51579) [facility] ([facility]) [address] [place] [address] Potassium [Moles/Vol] 4.4 mmol/L Normal 3.5-5.[address] [facility] Comment on above: Performed By: #### 9 5423-0 #### CHITO SIDDIQI (54044) [facility] ([facility]) [address] [place], [place] [address] Sodium [Moles/Vol] 134 mmol/L Low 136-145 [facility] Comment on above: Performed By: #### 9 5423-0 #### CHITO SIDDIQI (12948) [facility] ([facility]) [address] [place], [place] [address] Urea nitrogen [Mass/Vol] 42 mg/dL High 6-23 [facility] Comment on above: Performed By: #### 9 5423-0 #### CHITO SIDDIQI (89978) [facility] ([facility]) [address] [place], [place] [address] TRANSTHORACIC ECHO (TTE) [facility] PLETEon 06-30-2024 TRANSTHORACIC ECHO (TTE) [facility], [address] [place] [address] and TRANSTHORACIC ECHOCARDIOGRAM REPORT Patient Name: ANA CRISTINA Gómez Physician: [id number] Brian Conroy MD Study Date: 06/30/2024 Ordering Provider: [id number] ADIN HOOVER MRN/PID: [id number] Fellow: Nurse: Date of /Age: 6 1970 / [address] [employer] Repairer: Vicente roman Gender assigned at F Additional Staff: : Height: 163.00 cm Admit Date: 06/29/2024 Weight: 69.00 kg Admission Status: Inpatient - Routine BSA / BMI: 1.74 m2 / 25.97 kg/m2 Blood Pressure: 95/44 mmHg Department Location: [facility] Non Invasive Study Type: TRANSTHORACIC ECHO (TTE) COMPLETE Diagnosis/ICD: Sepsis, unspecified organism-A41.9 Indication: Septic Bacteria Due to Escherichia Coli CPT Code: Echo Complete w Full Doppler-51684 Patient History: Pertinent History: Sepsis. Study Detail: The following Echo studies were performed: M-Mode, 2D, Doppler and color flow. Technically challenging study due to the patient's lack of cooperation, patient lying in supine position, poor acoustic windows and confused. Definity used as a contrast agent for endocardial border definition. Total contrast used for this procedure was 2 mL via IV push. PHYSICIAN INTERPRETATION: Left Ventricle: The left ventricle was not well visualized. The left ventricular ejection fraction could not be measured. There is normal septal and normal posterior left ventricular wall thickness. Left ventricular diastolic filling cannot be determined. The left ventricle size could not be assessed. The interventricular septum is flattened in diastole ('D' shaped left ventricle) without other clear elements to suggest volume overload of the RV. Left Atrium: The left atrial size is normal. Right Ventricle: The right ventricle is moderately enlarged. There is low normal right ventricular systolic function. Right Atrium: The right atrium is upper limits of normal in size. There is a device visualized in the right atrium. Aortic Valve: The aortic valve is trileaflet. There is mild aortic valve thickening. The aortic valve dimensionless index is 0.70. There is no evidence of aortic valve regurgitation. The peak instantaneous gradient of the aortic valve is 5 mmHg. The mean gradient of the aortic valve is 3 mmHg. Mitral Valve: The mitral valve is mildly thickened. There is trace mitral valve regurgitation. Tricuspid Valve: The tricuspid valve is structurally normal. There is trace tricuspid regurgitation. The Doppler estimated RVSP is within normal limits at 28.8 mmHg. Reported right ventricular systolic pressure may be underestimated due to incomplete or suboptimal Doppler envelope. Pulmonic Valve: The pulmonic valve is not well visualized. There is trace pulmonic valve regurgitation. Pericardium: There is no pericardial effusion noted. Aorta: The aortic root is normal. Systemic Veins: The inferior vena cava appears normal in size, IVC inspiratory collapse is not well visualized. In comparison to the previous echocardiogram(s): There are no prior studies on this patient for comparison purposes. CONCLUSIONS: 1. Poorly visualized anatomical structures due to suboptimal image quality. 2. The left ventricle was not well visualized. The left ventricular ejection fraction could not be measured. 3. There is low normal right ventricular systolic function. 4. Moderately enlarged right ventricle. 5. Right ventricular systolic pressure is within normal limits. QUANTITATIVE DATA SUMMARY: 2D MEASUREMENTS: Normal Ranges: Ao Root s: 2.74 cm IVSd: 0.80 cm (0.6-1.1cm) LVPWd: 0.70 cm (0.6-1.1cm) LVIDd: 4.25 cm (3.9-5.9cm) LVIDs: 3.30 cm LV Mass Index: 54 g/m2 LVEDV Index: 101 ml/m2 LV % FS 22.4 % LEFT ATRIUM: Normal Ranges: LA Vol A4C: 50.5 ml (22+/-6mL/m2) LA Vol A2C: 56.8 ml LA Vol BP: 54.6 ml LA Vol Index A4C: 28.9ml/m2 LA Vol Index A2C: 32.6 ml/m2 LA Vol Index BP: 31.3 ml/m2 LA Area A4C: 17.4 cm2 LA Area A2C: 18.1 cm2 LA Major Sheldon A4C: 5.1 cm LA Major Sheldon A2C: 4.9 cm LA Volume Index: 31.3 ml/m2 LA Vol A4C: 45.9 ml LA Vol A2C: 52.9 ml LA Vol Index BSA: 28.3 ml/m2 RIGHT ATRIUM: Normal Ranges: RA Vol A4C: 52.5 ml (8.3-19.5ml) RA Vol Index A4C: 30.1 ml/m2 RA Area A4C: 18.1 cm2 RA Major Sheldon A4C: 5.3 cm AORTA MEASUREMENTS: Normal Ranges: Ao Sinus, d: 2.70 cm (2.1-3.5cm) Ao STJ, d: 2.30 cm (1.7-3.4cm) Asc Ao, d: 3.10 cm (2.1-3.4cm) LV SYSTOLIC FUNCTION: Normal Ranges: EF-A4C View: 50 % (>=55%) EF-A2C View: 29 % EF-Biplane: 40 % LV EF Reported: 40 % LV DIASTOLIC FUNCTION: Normal Ranges: MV e' 0.130 m/s (>8.0) MV lateral e' 0.18 m/s MV medial e' 0.08 m/s AORTIC VALVE: Normal Ranges: AoV Vmax: 1.09 m/s (<=1.7m/s) AoV Peak P.8 mmHg (<20mmHg) AoV Mean P.0 mmHg (1.7-11.5mmHg) LVOT Max Juan Francisco: 0.96 m/s (<=1.1m/s) AoV VTI: 20.88 cm (18-25cm) (more content not included)... Normal [facility] ACUTE TOXICOLOGY PANEL, BLOO Don 06-29-2024 Acetaminophen [Mass/Vol] ug/mL Normal 10.0-30.0 [facility] Comment on above: Performed By: #### D RUBL #### CHITO SIDDIQI (09973) [facility] ([facility]) [address] [place] [address] Ethanol [Mass/Vol] mg/dL Normal <=10 [facility] Comment on above: Performed By: #### D RUBL #### CHITO SIDDIQI (87368) [facility] ([facility]) [address] [place] [address] Salicylates [Mass/Vol] mg/dL Normal 4-20 [facility] Comment on above: Performed By: #### D RUBL #### CHITO SIDDIQI (83791) [facility] ([facility]) [address] [place] [address] Ammoniaon 06-29-2024 Ammonia (P) [Moles/Vol] 23 umol/L Normal 16-53 [facility] Comment on above: Result Comment: MILD HEMOLYSIS DETECTED. The result may be falsely elevated due to hemolysis or other interferents. Clinical correlation is recommended. Repeat testing may be considered. Performed By: #### 1 6362-6 #### CHITO SIDDIQI (96667) [facility] ([facility]) [address] [place] [address] Bacteria identifiedon 2024 Bacteria identified Cx Nom (U) Test: Urine Culture Specimen Source: Clean Catch/Voided Specimen Type: Urine Specimen Date: 06/29/2024 1730 Result Date: 06/30/20241949 Result Status: Final result Abnormal: No Resulting Lab: [facility] [address] [place] [id number] CULTURE Clinically insignificant growth based on current clinical standards. [facility] Comment on above: Performed By: #### 5 0957-0 #### CHITO SIDDIQI (95866) [facility] ([facility]) [address] [place] [address] Bacteria identified Cx Nom (Bld) Test: Blood Culture Specimen Source: Peripheral Venipuncture Specimen Type: Blood culture Specimen Date: 06/29/2024641 Result Date: 07/01/2024 122 Result Status: Final result Abnormal: Yes Resulting Lab: [facility] [address] [place] [id number] CULTURE Escherichia coli (Abnormal) BLOOD CULTURE BOTTLE - Positive Anaerobic Bottle Received 2 anaerobic bottles under the same accession number. STAIN Gram negative bacilli Anaerobic Bottle Positive Gram negative bacilli Anaerobic Bottle Positive SUSCEPTIBILITY Escherichia coli METHOD MICROSCAN ------- ------- AMOXICILLIN/CLAVULANAT E <=8/4 ug/ml Susceptible AMPICILLIN >16.000 ug/ml Resistant AMPICILLIN/SULBACTAM >16/8 ug/ml Resistant CEFAZOLIN 4 ug/ml Intermediate CEFTRIAXONE <=1.000 ug/ml Susceptible CIPROFLOXACIN <=0.250 ug/ml Susceptible GENTAMICIN <=2.000 ug/ml Susceptible LEVOFLOXACIN <=0.500 ug/ml Susceptible PIPERACILLIN/TAZOBACTA M <=8.000 ug/ml Susceptible TRIMETHOPRIM/SULFAMETH OXAZOLE <=0.5/9.5 ug/ml Susceptible Abnormal [facility] Comment on above: Performed By: #### 2 4323-8 #### CHITO SIDDIQI (99071) [facility] ([facility]) [address] [id number] Bacteria identified Cx Nom (Bld) Test: Blood Culture Specimen Source: Peripheral Venipuncture Specimen Type: Blood culture Specimen Date: 06/29/2024 0642 Result Date: 07/01/2024 1301 Result Status: Final result Abnormal: Yes Resulting Lab: [facility] [address] [place] [id number] CULTURE Escherichia coli (Abnormal) For antibiotic susceptibility results see Specimen # - [id number], 06-29-24 BLOOD CULTURE BOTTLE - Positive Aerobic Bottle Received 2 aerobic bottles under the same accession number. STAIN Gram negative bacilli Aerobic Bottle Positive Gram negative bacilli Aerobic Bottle Positive Abnormal [facility] Comment on above: Performed By: #### 2 4323-8 #### CHITO SIDDIQI ([id number]) [facility] ([facility]) [address] [place] [id number] CBC W Auto Differential pane l (Bld)on 06-29-2024 Erythrocyte distribution width (RBC) [Ratio] 13.5 % Normal 11.5-14.5 [facility] Comment on above: Order Comment: The p reviously reported component Neutrophils % is no longer being reported. The previously reported component Lymphocytes % is no longer being reported. The previously reported component Monocytes % is no longer being reported. The previously reported component Eosinophils % is no longer being reported. The previously reported component Basophils % is no longer being reported. The previously reported component Absolute Neutrophils is no longer being reported. The previously reported component Absolute Lymphocytes is no longer being reported. The previously reported component Absolute Monocytes is no longer being reported. The previously reported component Absolute Eosinophils is no longer being reported. The previously reported component Absolute Basophils is no longer being reported. Performed By: #### 5 7021-8 #### CHITO SIDDIQI ([id number]) [facility] ([facility]) [address] [place] [address] Hematocrit (Bld) [Volume fraction] 46.9 % High 36.0-46.0 [facility] Comment on above: Order Comment: The p reviously reported component Neutrophils % is no longer being reported. The previously reported component Lymphocytes % is no longer being reported. The previously reported component Monocytes % is no longer being reported. The previously reported component Eosinophils % is no longer being reported. The previously reported component Basophils % is no longer being reported. The previously reported component Absolute Neutrophils is no longer being reported. The previously reported component Absolute Lymphocytes is no longer being reported. The previously reported component Absolute Monocytes is no longer being reported. The previously reported component Absolute Eosinophils is no longer being reported. The previously reported component Absolute Basophils is no longer being reported. Performed By: #### 5 7021-8 #### CHITO SIDDIQI ([id number]) [facility] ([facility]) [address] [place] [address] Hemoglobin (Bld) [Mass/Vol] 15.5 g/dL Normal 12.0-16.0 [facility] Comment on above: Order Comment: The p reviously reported component Neutrophils % is no longer being reported. The previously reported component Lymphocytes % is no longer being reported. The previously reported component Monocytes % is no longer being reported. The previously reported component Eosinophils % is no longer being reported. The previously reported component Basophils % is no longer being reported. The previously reported component Absolute Neutrophils is no longer being reported. The previously reported component Absolute Lymphocytes is no longer being reported. The previously reported component Absolute Monocytes is no longer being reported. The previously reported component Absolute Eosinophils is no longer being reported. The previously reported component Absolute Basophils is no longer being reported. Performed By: #### 5 7021-8 #### CHITO SIDDIQI ([id number]) [facility] ([facility]) [facility] [place] [id number] Immature granulocytes (Bld) [#/Vol] 0.06 x10*3/uL Normal 0.00-0.70 [facility] Comment on above: Order Comment: The p reviously reported component Neutrophils % is no longer being reported. The previously reported component Lymphocytes % is no longer being reported. The previously reported component Monocytes % is no longer being reported. The previously reported component Eosinophils % is no longer being reported. The previously reported component Basophils % is no longer being reported. The previously reported component Absolute Neutrophils is no longer being reported. The previously reported component Absolute Lymphocytes is no longer being reported. The previously reported component Absolute Monocytes is no longer being reported. The previously reported component Absolute Eosinophils is no longer being reported. The previously reported component Absolute Basophils is no longer being reported. Performed By: #### 5 7021-8 #### CHITO SIDDIQI ([id number]) [facility] ([facility]) [address] [place] [place] [id number] Immature granulocytes/100 WBC (Bld) 0.6 % Normal 0.0-0.9 [facility] Comment on above: Order Comment: The p reviously reported component Neutrophils % is no longer being reported. The previously reported component Lymphocytes % is no longer being reported. The previously reported component Monocytes % is no longer being reported. The previously reported component Eosinophils % is no longer being reported. The previously reported component Basophils % is no longer being reported. The previously reported component Absolute Neutrophils is no longer being reported. The previously reported component Absolute Lymphocytes is no longer being reported. The previously reported component Absolute Monocytes is no longer being reported. The previously reported component Absolute Eosinophils is no longer being reported. The previously reported component Absolute Basophils is no longer being reported. Result Comment: Meagan ture Granulocyte Count (IG) includes promyelocytes, myelocytes and metamyelocytes but does not include bands. Percent differential counts (%) should be interpreted in the context of the absolute cell counts (cells/UL). Performed By: #### 5 7021-8 #### CHITO SIDDIQI ([id number]) [facility] ([facility]) [address] [place] [address] MCH (RBC) [Entitic mass] 28.1 pg Normal 26.0-34.0 [facility] Comment on above: Order Comment: The p reviously reported component Neutrophils % is no longer being reported. The previously reported component Lymphocytes % is no longer being reported. The previously reported component Monocytes % is no longer being reported. The previously reported component Eosinophils % is no longer being reported. The previously reported component Basophils % is no longer being reported. The previously reported component Absolute Neutrophils is no longer being reported. The previously reported component Absolute Lymphocytes is no longer being reported. The previously reported component Absolute Monocytes is no longer being reported. The previously reported component Absolute Eosinophils is no longer being reported. The previously reported component Absolute Basophils is no longer being reported. Performed By: #### 5 7021-8 #### CHITO SIDDIQI ([id number]) [facility] ([facility]) [address] [place] [address] MCHC (RBC) [Mass/Vol] 33.0 g/dL Normal 32.0-36.[address] [facility] Comment on above: Order Comment: The p reviously reported component Neutrophils % is no longer being reported. The previously reported component Lymphocytes % is no longer being reported. The previously reported component Monocytes % is no longer being reported. The previously reported component Eosinophils % is no longer being reported. The previously reported component Basophils % is no longer being reported. The previously reported component Absolute Neutrophils is no longer being reported. The previously reported component Absolute Lymphocytes is no longer being reported. The previously reported component Absolute Monocytes is no longer being reported. The previously reported component Absolute Eosinophils is no longer being reported. The previously reported component Absolute Basophils is no longer being reported. Performed By: #### 5 7021-8 #### CHITO SIDDIQI ([id number]) [facility] ([facility]) [address] [place], [place] [id number] MCV (RBC) [Entitic vol] 85 fL Normal 80-100 [facility] Comment on above: Order Comment: The p reviously reported component Neutrophils % is no longer being reported. The previously reported component Lymphocytes % is no longer being reported. The previously reported component Monocytes % is no longer being reported. The previously reported component Eosinophils % is no longer being reported. The previously reported component Basophils % is no longer being reported. The previously reported component Absolute Neutrophils is no longer being reported. The previously reported component Absolute Lymphocytes is no longer being reported. The previously reported component Absolute Monocytes is no longer being reported. The previously reported component Absolute Eosinophils is no longer being reported. The previously reported component Absolute Basophils is no longer being reported. Performed By: #### 5 7021-8 #### CHITO SIDDIQI ([id number]) [facility] ([facility]) [address] [place] [id number] Nucleated RBC/100 WBC (Bld) [Ratio] 0.0 /100 WBCs Normal 0.0-0.0 [facility] Comment on above: Order Comment: The p reviously reported component Neutrophils % is no longer being reported. The previously reported component Lymphocytes % is no longer being reported. The previously reported component Monocytes % is no longer being reported. The previously reported component Eosinophils % is no longer being reported. The previously reported component Basophils % is no longer being reported. The previously reported component Absolute Neutrophils is no longer being reported. The previously reported component Absolute Lymphocytes is no longer being reported. The previously reported component Absolute Monocytes is no longer being reported. The previously reported component Absolute Eosinophils is no longer being reported. The previously reported component Absolute Basophils is no longer being reported. Performed By: #### 5 7021-8 #### CHITO SIDDIQI ([id number]) [facility] ([facility]) [address] [place] [address] Platelets (Bld) [#/Vol] 175 x10*3/uL Normal 150-450 [facility] Comment on above: Order Comment: The p reviously reported component Neutrophils % is no longer being reported. The previously reported component Lymphocytes % is no longer being reported. The previously reported component Monocytes % is no longer being reported. The previously reported component Eosinophils % is no longer being reported. The previously reported component Basophils % is no longer being reported. The previously reported component Absolute Neutrophils is no longer being reported. The previously reported component Absolute Lymphocytes is no longer being reported. The previously reported component Absolute Monocytes is no longer being reported. The previously reported component Absolute Eosinophils is no longer being reported. The previously reported component Absolute Basophils is no longer being reported. Performed By: #### 5 7021-8 #### CHITO SIDDIQI [id number]) [facility] ([facility]) [address] [place] [address] RBC (Bld) [#/Vol] 5.52 x10*6/uL High 4.00-5.20 [facility] Comment on above: Order Comment: The p reviously reported component Neutrophils % is no longer being reported. The previously reported component Lymphocytes % is no longer being reported. The previously reported component Monocytes % is no longer being reported. The previously reported component Eosinophils % is no longer being reported. The previously reported component Basophils % is no longer being reported. The previously reported component Absolute Neutrophils is no longer being reported. The previously reported component Absolute Lymphocytes is no longer being reported. The previously reported component Absolute Monocytes is no longer being reported. The previously reported component Absolute Eosinophils is no longer being reported. The previously reported component Absolute Basophils is no longer being reported. Performed By: #### 5 7021-8 #### CHITO SIDDIQI ([id number]) [facility] ([facility]) [address] [place] [address] WBC (Bld) [#/Vol] 10.1 x10*3/uL Normal 4.4-11.3 [facility] Comment on above: Order Comment: The p reviously reported component Neutrophils % is no longer being reported. The previously reported component Lymphocytes % is no longer being reported. The previously reported component Monocytes % is no longer being reported. The previously reported component Eosinophils % is no longer being reported. The previously reported component Basophils % is no longer being reported. The previously reported component Absolute Neutrophils is no longer being reported. The previously reported component Absolute Lymphocytes is no longer being reported. The previously reported component Absolute Monocytes is no longer being reported. The previously reported component Absolute Eosinophils is no longer being reported. The previously reported component Absolute Basophils is no longer being reported. Performed By: #### 5 7021-8 #### CHITO SIDDIQI ([id number]) [facility] ([facility]) [address] [place] [address] CBC panel Auto (Bld)on 06-29 Erythrocyte distribution width (RBC) [Ratio] 13.7 % Normal 11.5-14.5 [facility] Comment on above: Performed By: #### 3 040-3 #### CHITO SIDDIQI ([id number]) [facility] ([facility]) [address] [place] [address] Hematocrit (Bld) [Volume fraction] 34.7 % Low 36.0-46.0 [facility] Comment on above: Performed By: #### 3 040-3 #### CHITO SIDDIQI ([id number]) [facility] ([facility]) [address] [place] [address] Hemoglobin (Bld) [Mass/Vol] 11.4 g/dL Low 12.0-16.0 [facility] Comment on above: Performed By: #### 3 040-3 #### CHITO SIDDIQI ([id number]) [facility] ([facility]) [address] [place] [address] MCH (RBC) [Entitic mass] 28.4 pg Normal 26.0-34.0 [facility] Comment on above: Performed By: #### 3 040-3 #### CHITO SIDDIQI ([id number]) [facility] ([facility]) [address] [place] [address] MCHC (RBC) [Mass/Vol] 32.9 g/dL Normal 32.0-36.[address] [facility] Comment on above: Performed By: #### 3 040-3 #### CHITO SIDDIQI ([id number]) [facility] ([facility]) [address] [place] [address] MCV (RBC) [Entitic vol] 87 fL Normal 80-100 [facility] Comment on above: Performed By: #### 3 040-3 #### CHITO SIDDIQI ([id number]) [facility] ([facility]) [address] [place] [address] Nucleated RBC/100 WBC (Bld) [Ratio] 0.0 /100 WBCs Normal 0.0-0.0 [facility] Comment on above: Performed By: #### 3 040-3 #### CHITO SIDDIQI ([id number]) [facility] ([facility]) [address] [place] [address] Platelets (Bld) [#/Vol] 103 x10*3/uL Low 150-450 [facility] Comment on above: Performed By: #### 3 040-3 #### CHITO SIDDIQI ([id number]) [facility] ([facility]) [address] [place] [place] [id number] RBC (Bld) [#/Vol] 4.01 x10*6/uL Normal 4.00-5.20 [facility] Comment on above: Performed By: #### 3 040-3 #### CHITO SIDDIQI ([id number]) [facility] ([facility]) [address] [place] [address] WBC (Bld) [#/Vol] 14.9 x10*3/uL High 4.4-11.3 [facility] Comment on above: Performed By: #### 3 040-3 #### CHITO NEERU ([id number]) [facility] ([facility]) [address] [place] [address] CT ABDOMEN PELVIS W IV CONTR Velia 06-29-2024 CT ABDOMEN PELVIS W IV CONTRAST STUDY: CT Angiogram of the Chest, CT Abdomen and Pelvis with IV Contrast; 06/29/2024 8:07 AM INDICATION: Shortness of breath and pain. Abdominal pain/tenderness to palpation. Fever. COMPARISON: None Available. ACCESSION NUMBER(S): [id number], [id number] ORDERING CLINICIAN: FINN ESTRELLA TECHNIQUE: CTA of the chest was performed following rapid injection of intravenous contrast. Images are reviewed and processed at a workstation according to the CT angiogram protocol with 3-D and/or MIP post processing imaging generated. CT of the abdomen and pelvis was performed with intravenous contrast. Omnipaque 350 75 mL was administered intravenously; positive oral contrast was given. Automated mA/kV exposure control was utilized and patient examination was performed in strict accordance with principles of ALARA. FINDINGS: CTA CHEST: Pulmonary arteries are slightly suboptimally opacified due to late contrast bolus, but no large or central pulmonary embolism. May pulmonary artery is mildly dilated measuring 3.4 cm. The thoracic aorta is normal in course and caliber without dissection or aneurysm. The heart is normal in size without pericardial effusion. Coronary artery calcifications. Thoracic lymph nodes are not enlarged. There is no pleural effusion, pleural thickening, or pneumothorax. The airways are patent. Small patchy areas of airspace consolidation bilaterally involving all lobes Mild wall thickening of the esophagus. ABDOMEN: LIVER: There is fatty infiltration of the liver with nodular contour the liver compatible with underlying cirrhosis. BILE DUCTS: No intrahepatic or extrahepatic biliary ductal dilatation. GALLBLADDER: The gallbladder is absent. STOMACH: No abnormalities identified. PANCREAS: No masses or ductal dilatation. SPLEEN: No splenomegaly or focal splenic lesion. ADRENAL GLANDS: No thickening or nodules. KIDNEYS AND URETERS: Kidneys are normal in size and location. 1 mm calculus at the left UVJ on image 142 with mild associated hydroureteronephrosis. . Nonobstructing 3 to 4 mm calculus in the right kidney without ureteral calculus or hydronephrosis. PELVIS: BLADDER: Mild diffuse urinary bladder wall thickening. REPRODUCTIVE ORGANS: No abnormalities identified. BOWEL: Moderate to large stool volume. Colonic diverticulosis without findings of diverticulitis. Appendix is not visualized. Mildly thickened small bowel is throughout the abdomen and pelvis with additional fluid-filled nondilated loops. VESSELS: No abnormalities identified. Abdominal aorta is normal in caliber. PERITONEUM/RETROPERITO NEUM/LYMPH NODES: No free fluid. No pneumoperitoneum. Small fat-containing infraumbilical hernia. No lymphadenopathy. ABDOMINAL WALL: No abnormalities identified. SOFT TISSUES: No abnormalities identified. BONES: No acute fracture or aggressive osseous lesion. IMPRESSION: 1.Pulmonary arteries are slightly suboptimally opacified due to late contrast bolus, but no large or central pulmonary embolism. 2.Small patchy areas of airspace consolidation bilaterally involving all lobes. Findings suggestive of multifocal pneumonia. 3.Mildly thickened small bowel is throughout the abdomen and pelvis with additional fluid-filled nondilated loops. Findings suggestive of a mild enteritis. 4.1 mm calculus at the left UVJ with mild associated hydroureteronephrosis. 5.Nonobstructing 3 to 4 mm calculus in the right kidney without ureteral calculus or hydronephrosis. 6.Mild diffuse urinary bladder wall thickening. Correlate with urinalysis for possible cystitis. 7.Hepatic steatosis with morphologic changes of underlying cirrhosis. No ascites. 8.Mild wall thickening of the esophagus. Correlate clinically for esophagitis. 9.Colonic diverticulosis without findings of diverticulitis. 10.Moderate to large stool volume. 11.Coronary artery calcifications. Signed by Jay Perdomo MD [facility] CT ANGIO CHEST FOR PULMONARY EMBOLISMon 06-29-2024 CT ANGIO CHEST FOR PULMONARY EMBOLISM STUDY: CT Angiogram of the Chest, CT Abdomen and Pelvis with IV Contrast; 06/29/2024 8:07 AM INDICATION: Shortness of breath and pain. Abdominal pain/tenderness to palpation. Fever. COMPARISON: None Available. ACCESSION NUMBER(S): [id number], [id number] ORDERING CLINICIAN: FINN ESTRELLA TECHNIQUE: CTA of the chest was performed following rapid injection of intravenous contrast. Images are reviewed and processed at a workstation according to the CT angiogram protocol with 3-D and/or MIP post processing imaging generated. CT of the abdomen and pelvis was performed with intravenous contrast. Omnipaque 350 75 mL was administered intravenously; positive oral contrast was given. Automated mA/kV exposure control was utilized and patient examination was performed in strict accordance with principles of ALARA. FINDINGS: CTA CHEST: Pulmonary arteries are slightly suboptimally opacified due to late contrast bolus, but no large or central pulmonary embolism. May pulmonary artery is mildly dilated measuring 3.4 cm. The thoracic aorta is normal in course and caliber without dissection or aneurysm. The heart is normal in size without pericardial effusion. Coronary artery calcifications. Thoracic lymph nodes are not enlarged. There is no pleural effusion, pleural thickening, or pneumothorax. The airways are patent. Small patchy areas of airspace consolidation bilaterally involving all lobes Mild wall thickening of the esophagus. ABDOMEN: LIVER: There is fatty infiltration of the liver with nodular contour the liver compatible with underlying cirrhosis. BILE DUCTS: No intrahepatic or extrahepatic biliary ductal dilatation. GALLBLADDER: The gallbladder is absent. STOMACH: No abnormalities identified. PANCREAS: No masses or ductal dilatation. SPLEEN: No splenomegaly or focal splenic lesion. ADRENAL GLANDS: No thickening or nodules. KIDNEYS AND URETERS: Kidneys are normal in size and location. 1 mm calculus at the left UVJ on image 142 with mild associated hydroureteronephrosis. . Nonobstructing 3 to 4 mm calculus in the right kidney without ureteral calculus or hydronephrosis. PELVIS: BLADDER: Mild diffuse urinary bladder wall thickening. REPRODUCTIVE ORGANS: No abnormalities identified. BOWEL: Moderate to large stool volume. Colonic diverticulosis without findings of diverticulitis. Appendix is not visualized. Mildly thickened small bowel is throughout the abdomen and pelvis with additional fluid-filled nondilated loops. VESSELS: No abnormalities identified. Abdominal aorta is normal in caliber. PERITONEUM/RETROPERITO NEUM/LYMPH NODES: No free fluid. No pneumoperitoneum. Small fat-containing infraumbilical hernia. No lymphadenopathy. ABDOMINAL WALL: No abnormalities identified. SOFT TISSUES: No abnormalities identified. BONES: No acute fracture or aggressive osseous lesion. IMPRESSION: 1.Pulmonary arteries are slightly suboptimally opacified due to late contrast bolus, but no large or central pulmonary embolism. 2.Small patchy areas of airspace consolidation bilaterally involving all lobes. Findings suggestive of multifocal pneumonia. 3.Mildly thickened small bowel is throughout the abdomen and pelvis with additional fluid-filled nondilated loops. Findings suggestive of a mild enteritis. 4.1 mm calculus at the left UVJ with mild associated hydroureteronephrosis. 5.Nonobstructing 3 to 4 mm calculus in the right kidney without ureteral calculus or hydronephrosis. 6.Mild diffuse urinary bladder wall thickening. Correlate with urinalysis for possible cystitis. 7.Hepatic steatosis with morphologic changes of underlying cirrhosis. No ascites. 8.Mild wall thickening of the esophagus. Correlate clinically for esophagitis. 9.Colonic diverticulosis without findings of diverticulitis. 10.Moderate to large stool volume. 11.Coronary artery calcifications. Signed by Jay Perdomo MD [facility] CT HEAD WO IV CONTRASTon CT HEAD WO IV CONTRAST Interpreted By: Erik Paz, STUDY: CT HEAD WO IV CONTRAST; 06/29/2024 7:43 am INDICATION: Signs/Symptoms:confusi on. COMPARISON: None. ACCESSION NUMBER(S): [id number] ORDERING CLINICIAN: FINN ESTRELLA TECHNIQUE: Unenhanced images were obtained through the brain. FINDINGS: The ventricles appear normal in size and position. There is no mass effect or midline shift. No acute intracranial hemorrhage is identified. No extra-axial fluid collections are seen. No intraparenchymal mass lesions are identified. Bone windows demonstrate no evidence of an acute calvarial fracture. IMPRESSION: No evidence of an acute intracranial process. MACRO: None. Signed by: Erik Paz 06/29/2024 8:19 AM Dictation workstation: [id number] Normal [facility] Comprehensive metabolic 2000 panelon 06-29-2024 Albumin BCP dye [Mass/Vol] 2.7 g/dL Low 3.4-5.0 [facility] Comment on above: Performed By: #### 9 5423-0 #### CHITO SIDDIQI (53430) [facility] ([facility]) [address] [place] [address] ALP [Catalytic activity/Vol] 89 U/L Normal 33-110 [facility] Comment on above: Performed By: #### 9 5423-0 #### CHITO SIDDIQI (08801) [facility] ([facility]) [address] [place] [address] ALT With P-5'-P [Catalytic activity/Vol] 126 U/L High 7-45 [facility] Comment on above: Result Comment: Camila ents treated with Sulfasalazine may generate falsely decreased results for ALT. Performed By: #### 9 5423-0 #### CHITO SIDDIQI (74793) [facility] ([facility]) [address] [place] [address] Anion gap [Moles/Vol] 11 mmol/L Normal 10-[address] [facility] Comment on above: Performed By: #### 9 5423-0 #### CHITO SIDDIQI (55353) [facility] ([facility]) [address] [place] [address] AST With P-5'-P [Catalytic activity/Vol] 99 U/L High 9-39 [facility] Comment on above: Performed By: #### 9 5423-0 #### CHITO SIDDIQI (15658) [facility] ([facility]) [address] [place] [address] Bilirubin [Mass/Vol] 0.8 mg/dL Normal 0.0-1.2 [facility] Comment on above: Performed By: #### 9 5423-0 #### CHITO SIDDIQI (58935) [facility] ([facility]) [address] [place] [address] Calcium [Mass/Vol] 8.1 mg/dL Low 8.6-10.3 [facility] Comment on above: Performed By: #### 9 5423-0 #### CHITO SIDDIQI (91046) [facility] ([facility]) [address] [place] [address] Chloride [Moles/Vol] 103 mmol/L Normal 98-107 [facility] Comment on above: Performed By: #### 9 5423-0 #### CHITO SIDDIQI (78954) [facility] ([facility]) [address] [place] [address] CO2 [Moles/Vol] 24 mmol/L Normal 21-32 [facility] Comment on above: Performed By: #### 9 5423-0 #### CHITO SIDDIQI (80712) [facility] ([facility]) [address] [place] [address] Creatinine [Mass/Vol] 1.23 mg/dL High 0.50-1.[address] [facility] Comment on above: Performed By: #### 9 5423-0 #### CHITO SIDDIQI (60712) [facility] ([facility]) [address] [place] [address] Glomerular filtration rate/1.73 sq M.predicted 53 mL/min/1.73m*2 Low >60 [facility] Comment on above: Result Comment: Calc ulations of estimated GFR are performed using the 2020 CKD-EPI Study Refit equation without the race variable for the IDMS-Traceable creatinine methods. https://jasn.asnjournals.org/content/early//ASN.182329 4862 Performed By: #### 9 5423-0 #### CHITO SIDDIQI (31560) [facility] ([facility]) [address] [place] [address] Glucose [Mass/Vol] 193 mg/dL High 74-99 [facility] Comment on above: Performed By: #### 9 5423-0 #### CHITO SIDDIQI (35145) [facility] ([facility]) [address] [place] [address] Potassium [Moles/Vol] 3.5 mmol/L Normal 3.5-5.[address] [facility] Comment on above: Performed By: #### 9 5423-0 #### CHITO SIDDIQI (01614) [facility] ([facility]) [address] [place] [address] Protein [Mass/Vol] 4.8 g/dL Low 6.4-8.2 [facility] Comment on above: Performed By: #### 9 5423-0 #### CHITO SIDDIQI (79492) [facility] ([facility]) [address] [place] [address] Sodium [Moles/Vol] 134 mmol/L Low 136-145 [facility] Comment on above: Performed By: #### 9 5423-0 #### CHITO SIDDIQI (54264) [facility] ([facility]) [address] [place] [address] Urea nitrogen [Mass/Vol] 39 mg/dL High 6-23 [facility] Comment on above: Performed By: #### 9 5423-0 #### CHITO SIDDIQI (31638) [facility] ([facility]) [address] [place] [address] Albumin BCP dye [Mass/Vol] 3.7 g/dL Normal 3.4-5.0 [facility] Comment on above: Performed By: #### 2 4323-8 #### CHITO SIDDIQI (06005) [facility] ([facility]) [address] [place] [address] ALP [Catalytic activity/Vol] 174 U/L High 33-110 [facility] Comment on above: Performed By: #### 2 4323-8 #### CHITO SIDDIQI (55844) [facility] ([facility]) [address] [place] [id number] ALT With P-5'-P [Catalytic activity/Vol] 166 U/L High 7-45 [facility] Comment on above: Result Comment: Camila ents treated with Sulfasalazine may generate falsely decreased results for ALT. Performed By: #### 2 4323-8 #### CHITO SIDDIQI (88848) [facility] ([facility]) [address] [place] [id number] Anion gap [Moles/Vol] 16 mmol/L Normal 10-[address] [facility] Comment on above: Performed By: #### 2 4323-8 #### CHITO SIDDIQI (14064) [facility] ([facility]) [address] [place] [id number] AST With P-5'-P [Catalytic activity/Vol] 121 U/L High 9-39 [facility] Comment on above: Performed By: #### 2 4323-8 #### CHITO SIDDIQI (27143) [facility] ([facility]) [address] [place] [address] Bilirubin [Mass/Vol] 0.6 mg/dL Normal 0.0-1.2 [facility] Comment on above: Performed By: #### 2 4323-8 #### CHITO SIDDIQI (28202) [facility] ([facility]) [address] [place] [address] Calcium [Mass/Vol] 9.6 mg/dL Normal 8.6-10.3 [facility] Comment on above: Performed By: #### 2 4323-8 #### CHITO SIDDIQI (32914) [facility] ([facility]) [address] [place] [address] Chloride [Moles/Vol] 97 mmol/L Low 98-107 [facility] Comment on above: Performed By: #### 2 4323-8 #### CHITO SIDDIQI (98052) [facility] ([facility]) [address] [place] [address] CO2 [Moles/Vol] 27 mmol/L Normal 21-32 [facility] Comment on above: Performed By: #### 2 4323-8 #### CHITO SIDDIQI (20436) [facility] ([facility]) [address] [place] [address] Creatinine [Mass/Vol] 0.90 mg/dL Normal 0.50-1.[address] [facility] Comment on above: Performed By: #### 2 4323-8 #### CHITO SIDDIQI (50431) [facility] ([facility]) [address] [place] [address] Glomerular filtration rate/1.73 sq M.predicted 77 mL/min/1.73m*2 Normal >60 [facility] Comment on above: Result Comment: Calc ulations of estimated GFR are performed using the 2020 CKD-EPI Study Refit equation without the race variable for the IDMS-Traceable creatinine methods. https://jasn.asnjournals.org/content//ASN.420436 2640 Performed By: #### 2 4323-8 #### CHITO SIDDIQI (53356) [facility] ([facility]) [address] [place] [address] Glucose [Mass/Vol] 289 mg/dL High 74-99 [facility] Comment on above: Performed By: #### 2 4323-8 #### CHITO SIDDQII (10122) [facility] ([facility]) [address] [place] [address] Potassium [Moles/Vol] 4.3 mmol/L Normal 3.5-5.[address] [facility] Comment on above: Performed By: #### 2 4323-8 #### CHITO SIDDIQI (00565) [facility] ([facility]) [address] [place] [address] Protein [Mass/Vol] 6.9 g/dL Normal 6.4-8.2 [facility] Comment on above: Performed By: #### 2 4323-8 #### CHITO SIDDIQI (45383) [facility] ([facility]) [address] [place] [address] Sodium [Moles/Vol] 136 mmol/L Normal 136-145 [facility] Comment on above: Performed By: #### 2 4323-8 #### CHITO SIDDIQI (67372) [facility] ([facility]) [address] [place] [address] Urea nitrogen [Mass/Vol] 31 mg/dL High 6-23 [facility] Comment on above: Performed By: #### 2 4323-8 #### CHITO SIDDIQI (96220) [facility] ([facility]) [address] [place] [address] DRUG SCREEN,URINEon 06-30-19 25 Amphetamines Screen Ql (U) Negative Normal Presumptive Negative [facility] Comment on above: Order Comment: Venip uncture immediately after or during the administration of Metamizole may lead to falsely low results. Testing should be performed immediately prior to Metamizole dosing. Result Comment: CUTO FF LEVEL: 500 NG/ML Cross-reactivity has been reported with high concentrations of the following drugs: buproprion, chloroquine, chlorpromazine, ephedrine, mephentermine, fenfluramine, phentermine, phenylpropanolamine, pseudoephedrine, and propranolol. Performed By: #### 3 040-3 #### CHITO SIDDIQI (11561) [facility] ([facility]) [address] [place] [address] Barbiturates Screen Ql (U) Negative Normal Presumptive Negative [facility] Comment on above: Order Comment: Venip uncture immediately after or during the administration of Metamizole may lead to falsely low results. Testing should be performed immediately prior to Metamizole dosing. Result Comment: CUTO FF LEVEL: 200 NG/ML Performed By: #### 3 040-3 #### CHITO SIDDIQI (18166) [facility] ([facility]) [address] [place] [address] Benzodiazepines Ql (U) Negative Normal Presumptive Negative [facility] Comment on above: Order Comment: Venip uncture immediately after or during the administration of Metamizole may lead to falsely low results. Testing should be performed immediately prior to Metamizole dosing. Result Comment: CUTO FF LEVEL: 200 NG/ML Performed By: #### 3 040-3 #### CHITO SIDDIQI (70526) [facility] ([facility]) [address] [place] [address] Benzoylecgonine Screen Ql (U) Negative Normal Presumptive Negative [facility] Comment on above: Order Comment: Venip uncture immediately after or during the administration of Metamizole may lead to falsely low results. Testing should be performed immediately prior to Metamizole dosing. Result Comment: CUTO FF LEVEL: 150 NG/ML Performed By: #### 3 040-3 #### CHITO SIDDIQI (13301) [facility] ([facility]) [address] [place] [address] Cannabinoids Screen Ql (U) Negative Normal Presumptive Negative [facility] Comment on above: Order Comment: Venip uncture immediately after or during the administration of Metamizole may lead to falsely low results. Testing should be performed immediately prior to Metamizole dosing. Result Comment: CUTO FF LEVEL: 50 NG/ML Performed By: #### 3 040-3 #### CHITO SIDDIQI (53264) [facility] ([facility]) [address] [place] [address] fentaNYL+Norfentanyl Screen Ql (U) Negative Normal Presumptive Negative [facility] Comment on above: Order Comment: Venip uncture immediately after or during the administration of Metamizole may lead to falsely low results. Testing should be performed immediately prior to Metamizole dosing. Result Comment: CUTO FF LEVEL: 5 NG/ML Performed By: #### 3 040-3 #### CHITO SIDDIQI (07113) [facility] ([facility]) [address] [place] [address] Methadone Screen Ql (U) Negative Normal Presumptive Negative [facility] Comment on above: Order Comment: Venip uncture immediately after or during the administration of Metamizole may lead to falsely low results. Testing should be performed immediately prior to Metamizole dosing. Result Comment: CUTO FF LEVEL: 150 NG/ML The metabolite L-cffxh-jzluwfletzeolz (LAAM) is not detected by this method in concentrations that would be found in the urine of patients on LAAM therapy. Performed By: #### 3 040-3 #### CHITO SIDDIQI (95627) [facility] ([facility]) [address] [place] [address] Opiates Screen Ql (U) Negative Normal Presum ptive Negative [facility] Comment on above: Order Comment: Venip uncture immediately after or during the administration of Metamizole may lead to falsely low results. Testing should be performed immediately prior to Metamizole dosing. Result Comment: CUTO FF LEVEL: 300 NG/ML The opiate screen does not detect fentanyl, meperidine, or tramadol. Oxycodone is not consistently detected (refer to Oxycodone Screen, Urine result). Performed By: #### 3 040-3 #### CHITO SIDDIQI (96588) [facility] ([facility]) [address] [place] [address] oxyCODONE+oxyMORphone Screen Ql (U) Negative Normal Presumptive Negative [facility] Comment on above: Order Comment: Venip uncture immediately after or during the administration of Metamizole may lead to falsely low results. Testing should be performed immediately prior to Metamizole dosing. Result Comment: CUTO FF LEVEL: 100 NG/ML This test will accurately detect both oxycodone and oxymorphone. Performed By: #### 3 040-3 #### CHITO SIDDIQI (70676) [facility] ([facility]) [address] [place] [address] Phencyclidine Ql (U) Negative Normal Presump tive Negative [facility] Comment on above: Order Comment: Venip uncture immediately after or during the administration of Metamizole may lead to falsely low results. Testing should be performed immediately prior to Metamizole dosing. Result Comment: CUTO FF LEVEL: 25 NG/ML Cross-reactivity has been reported with dextromethorphan. Performed By: #### 3 040-3 #### CHITO SIDDIQI (25240) [facility] ([facility]) [address] [place] [address] ECG 12-LEADon 06-29-2024 ECG 12-LEAD Ventricular Rate 138 Atrial Rate 138 P-R Interval 146 QRS Duration 72 Q-T Interval 280 QTC Calculation(Bazett) 424 P Sheldon 47 R Sheldon 54 T Sheldon 93 QRS Count 23 Q Onset 224 P Onset 151 P Offset 200 T Offset 364 QTC Fredericia 369 Diagnosis Sinus tachycardia Septal infarct (cited on or before 29-JUN-2024) Abnormal ECG Confirmed by Сергей Bustillos ([id number]) on 08/17/2024 4:33:25 PM Normal [facility] ECG 12-LEAD Ventricular Rate 141 Atrial Rate 141 P-R Interval 130 QRS Duration 72 Q-T Interval 274 QTC Calculation(Bazett) 419 P Sheldon 33 R Sheldon -18 T Sheldon 21 QRS Count 23 Q Onset 218 P Onset 153 P Offset 210 T Offset 355 QTC Fredericia 364 Diagnosis Sinus tachycardia Inferior infarct , age undetermined Anterolateral infarct , age undetermined Abnormal ECG No previous ECGs available See ED provider note for full interpretation and clinical correlation Confirmed by Chelsie Franco ([id number]) on 07/08/2024 1:12:54 PM Normal [facility] Gas and Carbon monoxide and Electrolytes panel (BldA)on 06-29-2024 Anion gap 4 (BldA) [Moles/Vol] 13 mmo/L Normal 10-25 [facility] Comment on above: Performed By: #### 3 040-3 #### CHITO SIDDIQI (55745) [facility] ([facility]) [address] [place] [address] Base excess Calc (Bld) [Moles/Vol] -2.4000 mmol/L Low -2.0-3.0 [facility] Comment on above: Performed By: #### 3 040-3 #### CHITO SIDDIQI (30361) [facility] ([facility]) [address] [place] [address] Calcium.ionized (BldA) [Moles/Vol] 1.17 mmol/L Normal 1.10-1.33 [facility] Comment on above: Performed By: #### 3 040-3 #### CHITO SIDDIQI (54801) [facility] ([facility]) [address] [place], [place] [address] Chloride (BldA) [Moles/Vol] 99 mmol/L Normal 98-107 [facility] Comment on above: Performed By: #### 3 040-3 #### CHITO SIDDIQI (50876) [facility] ([facility]) [address] [place], [place] [address] CO2 (Bld) [Partial pressure] 33 mm Hg Low 38-42 [facility] Comment on above: Performed By: #### 3 040-3 #### CHITO SIDDIQI (29571) [facility] ([facility]) [address] [place], [place] [address] Glucose [Mass/Vol] 224 mg/dL High 74-99 [facility] Comment on above: Performed By: #### 3 040-3 #### CHITO SIDDIQI (80897) [facility] ([facility]) [address] [place] [address] HCO3 (Bld) [Moles/Vol] 21.4 mmol/L Low 22.0-26.0 [facility] Comment on above: Performed By: #### 3 040-3 #### CHITO SIDDIQI (76618) [facility] ([facility]) [address] [place] [address] Hematocrit Est (Bld) [Volume fraction] 38.0 % Normal 36.0-46.0 [facility] Comment on above: Performed By: #### 3 040-3 #### CHITO SIDDIQI (03107) [facility] ([facility]) [address] [place] [address] Hemoglobin (Bld) [Mass/Vol] 12.7 g/dL Normal 12.0-16.0 [facility] Comment on above: Performed By: #### 3 040-3 #### CHITO SIDDIQI (99287) [facility] ([facility]) [address] [place] [id number] Inhaled oxygen concentration 24 % Normal [facility] Comment on above: Performed By: #### 3 040-3 #### CHITO SIDDIQI (58420) [facility] ([facility]) [address] [place] [id number] Lactate (BldA) [Moles/Vol] 5.3 mmol/L Critically high 0.4-2.0 [facility] Comment on above: Performed By: #### 3 040-3 #### CIHTO SIDDIQI (96023) [facility] ([facility]) [address] [place] [id number] Oxygen (Bld) [Partial pressure] 68 mm Hg Low 85-95 [facility] Comment on above: Performed By: #### 3 040-3 #### CHITO SIDDIQI (78582) [facility] ([facility]) [address] [place] [address] Oxyhemoglobin (BldA) [Mass fraction] 93.2 % Low 94.0-98.0 [facility] Comment on above: Performed By: #### 3 040-3 #### CHITO SIDDIQI (33883) [facility] ([facility]) [address] [place] [address] pH (Bld) 7.42 [pH] Normal 7.38-7.42 [facility] Comment on above: Performed By: #### 3 040-3 #### CHITO SIDDIQI (75935) [facility] ([facility]) [address] [place] [address] Potassium (BldA) [Moles/Vol] 3.6 mmol/L Normal 3.5-5.3 [facility] Comment on above: Performed By: #### 3 040-3 #### CHITO SIDDIQI (87969) [facility] ([facility]) [address] [place] [address] Sodium (BldA) [Moles/Vol] 130 mmol/L Low 136-145 [facility] Comment on above: Performed By: #### 3 040-3 #### CHITO SIDDIQI (25969) [facility] ([facility]) [address] [place] [address] Glucose Test strip manual (B ld) [Mass/Vol]on 06-29-2024 Glucose [Mass/Vol] 167 mg/dL High [address] [place] [address] Comment on above: Performed By: #### 9 5423-0 #### CHITO SIDDIQI (61942) [facility] ([facility]) [address] [place] [address] Glucose [Mass/Vol] 230 mg/dL High [address] [place] [address] Comment on above: Performed By: #### 3 040-3 #### CHITO SIDDIQI (65716) [facility] ([facility]) [address] [place] [address] Glucose [Mass/Vol] 224 mg/dL High [address] [place] [address] Comment on above: Performed By: #### 3 040-3 #### CHITO SIDDIQI (26775) [facility] ([facility]) [address] [place] [address] Glucose [Mass/Vol] 267 mg/dL High [address] [place] [address] Comment on above: Performed By: #### 3 040-3 #### CHITO SIDDIQI (97267) [facility] ([facility]) [address] [place] [address] HbA1c (Bld) [Mass fraction]o n 06-29-2024 Average glucose Estimated from glycated hemoglobin (Bld) [Mass/Vol] 240 mg/dL Normal Not Established [facility] Comment on above: Order Comment: This assay is an FDA-cleared, in vitro diagnostic nucleic acid amplification test for the qualitative detection and differentiation of SARS CoV-2/ Influenza A/B from nasopharyngeal specimens collected from individuals with signs and symptoms of respiratory tract infections, and has been validated for use at [facility]. Negative results do not preclude COVID-19/ Influenza A/B infections and should not be used as the sole basis for diagnosis, treatment, or other management decisions. Testing for SARS CoV-2 is recommended only for patients who meet current clinical and/or epidemiological criteria defined by federal, state, or local public health directives. Performed By: #### 9 5423-0 #### CHITO SIDDIQI (26866) [facility] ([facility]) [address] [place] [address] Hemoglobin A1c/Hemoglobin.to stacy 06-29-2024 HbA1c (Bld) [Mass fraction] 10.0 % High See comment [facility] Comment on above: Order Comment: This assay is an FDA-cleared, in vitro diagnostic nucleic acid amplification test for the qualitative detection and differentiation of SARS CoV-2/ Influenza A/B from nasopharyngeal specimens collected from individuals with signs and symptoms of respiratory tract infections, and has been validated for use at [facility]. Negative results do not preclude COVID-19/ Influenza A/B infections and should not be used as the sole basis for diagnosis, treatment, or other management decisions. Testing for SARS CoV-2 is recommended only for patients who meet current clinical and/or epidemiological criteria defined by federal, state, or local public health directives. Performed By: #### 9 5423-0 #### CHITO SIDDIQI (34158) [facility] ([facility]) [address] [place] [address] Influenza virus A and B and SARS-CoV-2 (COVID-19) identified SIRENA+probe Nom (Resp)on 06-29-2024 FLUAV RNA SIRENA+probe Ql (Resp) Not detected Normal Not Detected [facility] Comment on above: Order Comment: This assay is an FDA-cleared, in vitro diagnostic nucleic acid amplification test for the qualitative detection and differentiation of SARS CoV-2/ Influenza A/B from nasopharyngeal specimens collected from individuals with signs and symptoms of respiratory tract infections, and has been validated for use at [facility]. Negative results do not preclude COVID-19/ Influenza A/B infections and should not be used as the sole basis for diagnosis, treatment, or other management decisions. Testing for SARS CoV-2 is recommended only for patients who meet current clinical and/or epidemiological criteria defined by federal, state, or local public health directives. Performed By: #### 9 5423-0 #### CHITO SIDDIQI (77379) [facility] ([facility]) [address] [place] [address] FLUBV RNA SIRENA+probe Ql (Resp) Not detected Normal Not Detected [facility] Comment on above: Order Comment: This assay is an FDA-cleared, in vitro diagnostic nucleic acid amplification test for the qualitative detection and differentiation of SARS CoV-2/ Influenza A/B from nasopharyngeal specimens collected from individuals with signs and symptoms of respiratory tract infections, and has been validated for use at [facility]. Negative results do not preclude COVID-19/ Influenza A/B infections and should not be used as the sole basis for diagnosis, treatment, or other management decisions. Testing for SARS CoV-2 is recommended only for patients who meet current clinical and/or epidemiological criteria defined by federal, state, or local public health directives. Performed By: #### 9 5423-0 #### CHITO SIDDIQI ([id number]) [facility] ([facility]) [address] [place] [address] SARS-CoV-2 (COVID-19) RNA SIRENA+probe Ql (Resp) Not detected Normal Not Detected [facility] Comment on above: Order Comment: This assay is an FDA-cleared, in vitro diagnostic nucleic acid amplification test for the qualitative detection and differentiation of SARS CoV-2/ Influenza A/B from nasopharyngeal specimens collected from individuals with signs and symptoms of respiratory tract infections, and has been validated for use at [facility]. Negative results do not preclude COVID-19/ Influenza A/B infections and should not be used as the sole basis for diagnosis, treatment, or other management decisions. Testing for SARS CoV-2 is recommended only for patients who meet current clinical and/or epidemiological criteria defined by federal, state, or local public health directives. Performed By: #### 9 5423-0 #### CHITO SIDDIQI (30327) [facility] ([facility]) [address] [place] [address] Lactateon 06-29-2024 Lactate [Moles/Vol] 3.2 mmol/L High 0.4-2.0 [facility] Comment on above: Order Comment: This assay is an FDA-cleared, in vitro diagnostic nucleic acid amplification test for the qualitative detection and differentiation of SARS CoV-2/ Influenza A/B from nasopharyngeal specimens collected from individuals with signs and symptoms of respiratory tract infections, and has been validated for use at [facility]. Negative results do not preclude COVID-19/ Influenza A/B infections and should not be used as the sole basis for diagnosis, treatment, or other management decisions. Testing for SARS CoV-2 is recommended only for patients who meet current clinical and/or epidemiological criteria defined by federal, state, or local public health directives. Performed By: #### 9 5423-0 #### CHITO SIDDIQI (92677) [facility] ([facility]) [address] [place] [address] Lactate (BldV) [Moles/Vol] 4.2 mmol/L Critically high 0.4-2.0 [facility] Comment on above: Performed By: #### 3 040-3 #### CHITO SIDDIQI (29160) [facility] ([facility]) [address] [place] [address] Lactate [Moles/Vol] 5.4 mmol/L Critically high 0.4-2.0 [facility] Comment on above: Order Comment: Venip uncture immediately after or during the administration of Metamizole may lead to falsely low results. Testing should be performed immediately prior to Metamizole dosing. Result Comment: Prev ious result verified on 06/29/2024 0700 on specimen/case [id number] called with component LACT for procedure Lactate with value 4.3 mmol/L. Performed By: #### 2 4323-8 #### CIHTO SIDDIQI (06817) [facility] ([facility]) [address] [place] [address] Lactate [Moles/Vol] 4.9 mmol/L Critically high 0.4-2.0 [facility] Comment on above: Order Comment: Venip uncture immediately after or during the administration of Metamizole may lead to falsely low results. Testing should be performed immediately prior to Metamizole dosing. Result Comment: Prev ious result verified on 06/29/2024 0700 on specimen/case [id number] called with component LACT for procedure Lactate with value 4.3 mmol/L. Performed By: #### 2 4323-8 #### CHITO SIDDIQI (69513) [facility] ([facility]) [address] [place] [address] Lactate [Moles/Vol] 5.5 mmol/L Critically high 0.4-2.0 [facility] Comment on above: Order Comment: Venip uncture immediately after or during the administration of Metamizole may lead to falsely low results. Testing should be performed immediately prior to Metamizole dosing. Result Comment: Prev ious result verified on 06/29/2024 0700 on specimen/case [id number] called with component LACT for procedure Lactate with value 4.3 mmol/L. Performed By: #### 2 4323-8 #### CHITO SIDDIQI (55516) [facility] ([facility]) [address] [place] [address] Lactate [Moles/Vol] 4.3 mmol/L Critically high 0.4-2.0 [facility] Comment on above: Order Comment: Venip uncture immediately after or during the administration of Metamizole may lead to falsely low results. Testing should be performed immediately prior to Metamizole dosing. Performed By: #### 2 524-7 #### CHITO SIDDIQI (52405) [facility] ([facility]) [address] [place] [address] Magnesiumon 06-29-2024 Magnesium [Mass/Vol] 1.36 mg/dL Low 1.60-2.40 [facility] Comment on above: Performed By: #### 3 040-3 #### CHITO SIDDIQI (92189) [facility] ([facility]) [address] [place] [address] Magnesium [Mass/Vol] 1.73 mg/dL Normal 1.60-2.40 [facility] Comment on above: Performed By: #### 1 9123-9 #### CHITO SIDDIQI (65311) [facility] ([facility]) [address] [place] [address] Manual differential performe d Ql (Bld)on 06-29-2024 Band form neutrophils (Bld) [#/Vol] 3.43 x10*3/uL High 0.00-0.70 [facility] Comment on above: Performed By: #### 5 0957-0 #### CHITO SIDDIQI (86918) [facility] ([facility]) [address] [place] [address] Band form neutrophils/100 WBC (Bld) 34.0 % Normal 0.0-5.0 [facility] Comment on above: Performed By: #### 5 0957-0 #### CHITO SIDDIQI (28663) [facility] ([facility]) [address] [place] [address] Basophils (Bld) [#/Vol] 0.00 x10*3/uL Normal 0.00-0.10 [facility] Comment on above: Performed By: #### 5 0957-0 #### CHITO SIDDIQI (79776) [facility] ([facility]) [address] [place] [address] Basophils/100 WBC (Bld) 0.0 % Normal 0.0-2.0 [facility] Comment on above: Performed By: #### 5 0957-0 #### CHITO SIDDIQI (33373) [facility] ([facility]) [address] [place] [address] Cells Counted Total (Bld) [#] 100 Normal [facility] Comment on above: Performed By: #### 5 0957-0 #### CHITO SIDDIQI (16573) [facility] ([facility]) [address] [place] [address] Eosinophils (Bld) [#/Vol] 0.00 x10*3/uL Normal 0.00-0.70 [facility] Comment on above: Performed By: #### 5 57-0 #### CHITO SIDDIQI (40181) [facility] ([facility]) [address] [place] [address] Eosinophils/100 WBC (Bld) 0.0 % Normal 0.0-6.0 [facility] Comment on above: Performed By: #### 5 57-0 #### CHITO SIDDIQI (12925) [facility] ([facility]) [address] [place] [address] Lymphocytes (Bld) [#/Vol] 0.10 x10*3/uL Low 1.20-4.80 [facility] Comment on above: Performed By: #### 5 57-0 #### CHITO SIDDIQI (16022) [facility] ([facility]) [address] [place] [address] Lymphocytes/100 WBC (Bld) 1.0 % Normal 13.0-44.0 [facility] Comment on above: Performed By: #### 5 57-0 #### CHITO SIDDIQI (70896) [facility] ([facility]) [address] [place] [address] Monocytes (Bld) [#/Vol] 0.00 x10*3/uL Low 0.10-1.00 [facility] Comment on above: Performed By: #### 5 57-0 #### CHITO SIDDIQI (22518) [facility] ([facility]) [address] [place] [address] Monocytes/100 WBC (Bld) 0.0 % Normal 2.0-10.0 [facility] Comment on above: Performed By: #### 5 57-0 #### CHITO SIDDIQI (84038) [facility] ([facility]) [address] [place] [address] Neutrophils (Bld) [#/Vol] 9.89 x10*3/uL High 1.20-7.70 [facility] Comment on above: Performed By: #### 5 57-0 #### CHITO SIDDIQI (44358) [facility] ([facility]) [address] [place] [id number] RBC morphology finding Nom (Bld) No significant RBC morphology present Normal [facility] Comment on above: Performed By: #### 5 0957-0 #### CHITO SIDDIQI (36296) [facility] ([facility]) [address] [place] [id number] Segmented neutrophils (Bld) [#/Vol] 6.46 x10*3/uL Normal 1.20-7.00 [facility] Comment on above: Performed By: #### 5 0957-0 #### CHITO SIDDIQI (42787) [facility] ([facility]) [address] [place] [id number] Segmented neutrophils/100 WBC (Bld) 64.0 % Normal 40.0-80.0 [facility] Comment on above: Result Comment: Perc ent differential counts (%) should be interpreted in the context of the absolute cell counts (cells/uL). Performed By: #### 5 0957-0 #### CHITO SIDDIQI (66756) [facility] ([facility]) [address] [place] [address] Variant lymphocytes (Bld) [#/Vol] 0.10 x10*3/uL Normal 0.00-0.50 [facility] Comment on above: Performed By: #### 5 0957-0 #### CHITO SIDDIQI (39354) [facility] ([facility]) [address] [place] [id number] Variant lymphocytes/100 WBC (Bld) 1.0 % Normal 0.0-2.0 [facility] Comment on above: Performed By: #### 5 0957-0 #### CHITO SIDDIQI (97572) [facility] ([facility]) [address] [place] [id number] PT and aPTT panel Coag (PPP) on 06-29-2024 aPTT Coag (PPP) [Time] 31 s Normal 26-36 [facility] Comment on above: Order Comment: The A PTT is no longer used for monitoring Unfractionated Heparin Therapy. For monitoring Heparin Therapy, use the Heparin Assay. Performed By: #### 2 4323-8 #### CHITO SIDDIQI (28138) [facility] ([facility]) [address] [place] [address] INR Coag (PPP) [Relative time] 1.1 Normal 0.9-1.1 [facility] Comment on above: Order Comment: The A PTT is no longer used for monitoring Unfractionated Heparin Therapy. For monitoring Heparin Therapy, use the Heparin Assay. Performed By: #### 2 4323-8 #### CHTIO SIDDIQI (40673) [facility] ([facility]) [address] [place] [address] PT Coag (PPP) [Time] 12.4 s Normal 9.8-12.4 [facility] Comment on above: Order Comment: The A PTT is no longer used for monitoring Unfractionated Heparin Therapy. For monitoring Heparin Therapy, use the Heparin Assay. Performed By: #### 2 4323-8 #### CHITO SIDDIQI (28036) [facility] ([facility]) [address] [place] [address] Phosphateon 06-29-2024 Phosphate [Mass/Vol] 1.9 mg/dL Low 2.5-4.9 [facility] Comment on above: Result Comment: The performance characteristics of phosphorus testing in heparinized plasma have been validated by the individual laboratory site where testing is performed. Testing on heparinized plasma is not approved by the FDA; however, such approval is not necessary. Performed By: #### 9 5423-0 #### CHITO SIDDIQI (53791) [facility] ([facility]) [address] [place] [address] TSH WITH REFLEX TO FREE T4 I F ABNORMALon 06-29-2024 TSH Qn 1.41 m[IU]/L Normal 0.44-3.98 [facility] Comment on above: Order Comment: TSH t esting is performed using different testing methodology at [facility] than at other [facility]. Direct result comparisons should only be made within the same method. Performed By: #### T HYDS #### CHITO SIDDIQI (71426) [facility] ([facility]) [address] [place] [address] Triacylglycerol lipaseon Lipase [Catalytic activity/Vol] 41 U/L Normal 9-82 [facility] Comment on above: Order Comment: Venip uncture immediately after or during the administration of Metamizole may lead to falsely low results. Testing should be performed immediately prior to Metamizole dosing. Performed By: #### 3 040-3 #### CHITO SIDDIQI (26944) [facility] ([facility]) [address] [place], [place] [address] Urinalysis complete W Reflex Culture panel (U)on 06-29-2024 Appearance (U) Clear Normal Clear [facility] Comment on above: Performed By: #### 3 040-3 #### CHITO SIDDIQI (04056) [facility] ([facility]) [address] [place] [address] Bilirubin (U) [Mass/Vol] Negative Normal NEGATIVE [facility] Comment on above: Performed By: #### 3 040-3 #### CHITO SIDDIQI (28434) [facility] ([facility]) [address] [place] [address] Color (U) Yellow Normal Light-Yellow, Yellow, Dark-Yellow [facility] Comment on above: Performed By: #### 3 040-3 #### CHITO SIDDIQI (58858) [facility] ([facility]) [address] [place], [place] [address] Glucose Auto test strip (U) [Mass/Vol] 500 (3+) Abnormal Normal [facility] Comment on above: Performed By: #### 3 040-3 #### CHITO SIDDIQI (40602) [facility] ([facility]) [address] [place] [id number] Ketones (U) [Mass/Vol] Negative Normal NEGATIVE [facility] Comment on above: Performed By: #### 3 040-3 #### CHITO SIDDIQI (81193) [facility] ([facility]) [address] [place] [id number] Leukocyte esterase Auto test strip Ql (U) 500 Alexander/uL Abnormal NEGATIVE [facility] Comment on above: Performed By: #### 3 040-3 #### CHITO SIDDIQI (11124) [facility] ([facility]) [address] [place] [address] Nitrite Auto test strip Ql (U) Negative Normal NEGATIVE [facility] Comment on above: Performed By: #### 3 040-3 #### CHITO SIDDIQI (91268) [facility] ([facility]) [address] [place], [place] [address] pH (U) 6.0 [pH] Normal 5.0, 5.5, 6.0, 6.5, 7.0, 7.5, 8.0 [facility] Comment on above: Performed By: #### 3 040-3 #### CHITO SIDDIQI (83694) [facility] ([facility]) [address] [place], [place] [address] Protein (U) [Mass/Vol] 30 (1+) Abnormal NEGATIVE, 10 (TRACE), 20 (TRACE) [facility] Comment on above: Performed By: #### 3 040-3 #### CHITO SIDDIQI (25307) [facility] ([facility]) [address] [place], [place] [address] RBC (U) [#/Vol] Negative Normal NEGATIVE [facility] Comment on above: Performed By: #### 3 040-3 #### CHITO SIDDIQI (70875) [facility] ([facility]) [address] [place], [place] [address] Specific gravity (U) [Rel density] >1.050 Normal 1.005-1.035 [facility] Comment on above: Result Comment: [facility] gravity of >1.050 may be falsely elevated due to interfering substances (e.g. radiopaque contrast dye, mannitol). If clinically necessary, an alternate test method is available by calling the laboratory within 24 hours of specimen collection. Performed By: #### 3 040-3 #### CHITO SIDDIQI (45004) [facility] ([facility]) [address] [place] [id number] Urobilinogen (U) [Mass/Vol] Normal Normal Normal [facility] Comment on above: Performed By: #### 3 040-3 #### CHITO SIDDIQI (03750) [facility] ([facility]) [address] [place] [address] Urinalysis microscopic panel Auto Ql (U)on 06-29-2024 Bacteria Auto (Urine sed) [#/Area] 1+ /HPF Abnormal NONE SEEN [facility] Comment on above: Performed By: #### 3 040-3 #### CHITO SIDDIQI (70772) [facility] ([facility]) [address] [place] [address] Epithelial cells.squamous Auto (Urine sed) [#/Area] 1-9 (SPARSE) Normal Reference range not established. [facility] Comment on above: Performed By: #### 3 040-3 #### CHITO SIDDIQI (02437) [facility] ([facility]) [address] [place] [address] Mucus Auto (Urine sed) [#/Area] FEW Normal Reference range not established. [facility] Comment on above: Performed By: #### 3 040-3 #### CHITO SIDDIQI (20726) [facility] ([facility]) [address] [place] [address] RBC Auto (Urine sed) [#/Area] 3-5 Normal NONE, 1-2, 3-5 [facility] Comment on above: Performed By: #### 3 040-3 #### CHITO SIDDIQI (52868) [facility] ([facility]) [address] [place], [place] [address] WBC Auto (Urine sed) [#/Area] >50 Abnormal 1-5, NONE [facility] Comment on above: Performed By: #### 3 040-3 #### CHITO SIDDIQI (86817) [facility] ([facility]) [address] [place] [address] XR CHEST 1 VIEWon 06-29-2024 XR CHEST 1 VIEW STUDY: Chest Radiograph; 06/29/2024 10:59AM INDICATION: Post central line placement. COMPARISON: 06/29/2024 CT CTA Chest. ACCESSION NUMBER(S): [id number] ORDERING CLINICIAN: FINN CARPINTERO-PRISCILA TECHNIQUE: Frontal chest was obtained at 10:59 hours. FINDINGS: CARDIOMEDIASTINAL SILHOUETTE: Cardiomediastinal silhouette is normal in size and configuration. LUNGS: Emphysematous changes noted. Small patchy areas airspace consolidation in the right upper and right lower lung zones. Right-sided central venous catheter with tip in the superior vena cava. ABDOMEN: No remarkable upper abdominal findings. BONES: No acute osseous changes. IMPRESSION: 1.Right-sided central venous catheter with tip in the superior vena cava without pneumothorax. 2.Small patchy areas airspace consolidation in the right upper and right lower lung zones. Signed by Jay Perdomo MD [facility] Absolute lymphocyte countOrd ered By: Albert Mccoy on 06-18-2024 Lymphocytes Auto (Unsp spec) [#/Vol] 1.22 10*3/uL 0.83-4.51 [facility] Absolute neutrophil countOrd ered By: Albert Mccoy on 06-18-2024 Neutrophils (Bld) [#/Vol] 3.2 10*3/uL 2.0-7.7 [facility] Alcohol, Blood (Medical)-Ser umon 06-18-2024 SERUM ETOH < 10.1 Normal <=10.0 [facility] Comment on above: Result Comment: This test is for medical purposes only. The legaldefinition of intoxication varies according to local law. Performed By: #### L 501.6901, L100.0100, L505.5000, L501.9100, L500.4050 ####[facility] [address] [place], [place], [id number] Amphetamine detection with 1 000 ng/mL as cutoffOrdered By: Albert Mccoy on 06-18-2024 Amphetamines Screen method >1000 ng/mL Ql (U) Negative < 200 ng/mL [facility] Anion gap in Serum or Plasma Ordered By: Albert Mccoy on 06-18-2024 Anion gap [Moles/Vol] 11 mmol/L 5-15 [facility] Automated lymphocyte count a s percentage of total leukocytesOrdered By: Albert Mccoy on 06-18-2024 Lymphocytes/100 WBC Auto (Unsp spec) 24.5 % 19-41 [facility] BUN/creatinine ratioOrdered By: Albert Mccoy on 06-18-2024 Urea nitrogen/Creatinine [Mass ratio] 23.5 mg/mg High 10-20 [facility] Basophil percentageOrdered B y: Albert Mccoy on 06-18-2024 Basophils/100 WBC (Bld) 0.6 % 0-1 [facility] Bedside Glucoseon 06-18-2024 FINGERSTICK GLU 414 mg/dL High 74-106 [facility] Comment on above: Result Comment: DELLA GEMENT OF PATIENT CARE PER NURSING PROTOCOL Performed By: #### L 501.080 ####[facility] [address] [place], [address] FINGERSTICK GLU 409 mg/dL High 74-106 [facility] Comment on above: Result Comment: DELLA GEMENT OF PATIENT CARE PER NURSING PROTOCOL Performed By: #### L 501.080 ####[facility] [address] [place], [address] Bilirubin, totalOrdered By: Albert Mccoy on 06-18-2024 Bilirubin [Mass/Vol] 0.34 mg/dL 0.00-1.30 [facility] CBC W/Diff, Automatedon Absolute Lymph 1.22 X10 3/uL Normal 0.83-4.51 [facility] Comment on above: Performed By: #### L 501.6901, L100.0100, L505.5000, L501.9100, L500.4050 ####[facility] [address] [place], [address] Absolute Neut 3.2 X10 3/uL Normal 2.0-7.7 [facility] Comment on above: Performed By: #### L 501.6901, L100.0100, L505.5000, L501.9100, L500.4050 ####[facility] [address] [place], [address] Basophils/100 WBC (Bld) 0.6 % Normal 0-1 [facility] Comment on above: Performed By: #### L 501.6901, L100.0100, L505.5000, L501.9100, L500.4050 ####[facility] [address] [place], [address] Eosinophils/100 WBC (Bld) 3.0 % Normal 0-5 [facility] Comment on above: Performed By: #### L 501.6901, L100.0100, L505.5000, L501.9100, L500.4050 ####[facility] [address] [place], [address] Erythrocyte distribution width (RBC) [Ratio] 13.7 % Normal 11.6-14.6 [facility] Comment on above: Performed By: #### L 501.6901, L100.0100, L505.5000, L501.9100, L500.4050 ####[facility] [address] [place], [address] Hematocrit (Bld) [Volume fraction] 43.7 % Normal 37-47 [facility] Comment on above: Performed By: #### L 501.6901, L100.0100, L505.5000, L501.9100, L500.4050 ####[facility] [address] [place], [address] Hemoglobin (Bld) [Mass/Vol] 14.7 g/dL Normal 12.0-15.0 [facility] Comment on above: Performed By: #### L 501.6901, L100.0100, L505.5000, L501.9100, L500.4050 ####[facility] [address] [place], [address] IG% 0.600 Normal 0.0-0.9 [facility] Comment on above: Result Comment: IG% - Immature Granulocytes (promyelocytes, myelocytes andmetamyelocytes) > 1% indicates that a LEFT SHIFT is Present. Performed By: #### L 501.6901, L100.0100, L505.5000, L501.9100, L500.4050 ####[facility] [address] [place], [address] Lymphocytes/100 WBC (Bld) 24.5 % Normal 19-41 [facility] Comment on above: Performed By: #### L 501.6901, L100.0100, L505.5000, L501.9100, L500.4050 ####[facility] [address] [place], [address] MCH (RBC) [Entitic mass] 28.7 pg Normal 27.0-32.0 [facility] Comment on above: Performed By: #### L 501.6901, L100.0100, L505.5000, L501.9100, L500.4050 ####[facility] [address] [place], [address] MCHC (RBC) [Mass/Vol] 33.6 g/dL Normal 32-36 [facility] Comment on above: Performed By: #### L 501.6901, L100.0100, L505.5000, L501.9100, L500.4050 ####[facility] [address] [place], [address] MCV (RBC) [Entitic vol] 85.2 fL Normal 81-99 [facility] Comment on above: Performed By: #### L 501.6901, L100.0100, L505.5000, L501.9100, L500.4050 ####[facility] [address] [place], [address] Monocytes/100 WBC (Bld) 7.8 % Normal 0-10 [facility] Comment on above: Performed By: #### L 501.6901, L100.0100, L505.5000, L501.9100, L500.4050 ####[facility] [facility] [address] [place], [address] Neutrophils/100 WBC (Bld) 63.5 % Normal 47-70 [facility] Comment on above: Performed By: #### L 501.6901, L100.0100, L505.5000, L501.9100, L500.4050 ####[facility] [address] [place], [address] Nucleated RBC (Bld) [#/Vol] 0 10*3/uL Normal 0-5 [facility] Comment on above: Performed By: #### L 501.6901, L100.0100, L505.5000, L501.9100, L500.4050 ####[facility] [address] [place], [address] Platelet mean volume (Bld) [Entitic vol] 10.3 fL Normal 6.2-12.0 [facility] Comment on above: Performed By: #### L 501.6901, L100.0100, L505.5000, L501.9100, L500.4050 ####[facility] [address] [place], [address] Platelets (Bld) [#/Vol] 182 10*3/uL Normal 150-450 [facility] Comment on above: Performed By: #### L 501.6901, L100.0100, L505.5000, L501.9100, L500.4050 ####[facility] [address] [place], [address] RBC (Bld) [#/Vol] 5.13 10*6/uL Normal 4.2-5.4 [facility] Comment on above: Performed By: #### L 501.6901, L100.0100, L505.5000, L501.9100, L500.4050 ####[facility] [address] [place], [address] RDW SD 43.1 fl Normal 35.1-43.9 [facility] Comment on above: Performed By: #### L 501.6901, L100.0100, L505.5000, L501.9100, L500.4050 ####[facility] [address] [place], [address] WBC (Bld) [#/Vol] 5.0 10*3/uL Normal 4.4-11.0 [facility] Comment on above: Performed By: #### L 501.6901, L100.0100, L505.5000, L501.9100, L500.4050 ####[facility] [address] [place], [address] Carbon dioxide, total [Moles /volume] in Central venous bloodOrdered By: Albert Mccoy on 06-18-2024 CO2 [Moles/Vol] 23.4 mmol/L 21.0-32.0 [facility] Chloride assayOrdered By: Davey Mccoy on 06-18-2024 Chloride [Moles/Vol] 101 mmol/L 98-108 [facility] Comprehensive Metabolic Prof ilon 06-18-2024 Albumin [Mass/Vol] 3.6 g/dL Normal 3.5-5.0 [facility] Comment on above: Performed By: #### L 501.6901, L100.0100, L505.5000, L501.9100, L500.4050 ####[facility] [address] [place], [address] Albumin/Globulin [Mass ratio] 1.3 {ratio} Normal 0.9-2.4 [facility] Comment on above: Performed By: #### L 501.6901, L100.0100, L505.5000, L501.9100, L500.4050 ####[facility] [address] [place], [address] ALK PHOS 91 U/L Normal 35-104 [facility] Comment on above: Performed By: #### L 501.6901, L100.0100, L505.5000, L501.9100, L500.4050 ####[facility] [address] [place], [address] ALT [Catalytic activity/Vol] 54 U/L High <=34 [facility] Comment on above: Performed By: #### L 501.6901, L100.0100, L505.5000, L501.9100, L500.4050 ####[facility] [address] [place], [address] AST [Catalytic activity/Vol] 52 U/L High <=31 [facility] Comment on above: Performed By: #### L 501.6901, L100.0100, L505.5000, L501.9100, L500.4050 ####[facility] [address] [place], [address] Bilirubin [Mass/Vol] 0.34 mg/dL Normal 0.00-1.30 [facility] Comment on above: Performed By: #### L 501.6901, L100.0100, L505.5000, L501.9100, L500.4050 ####[facility] [address] [place], [address] BUN/CRE 23.5 RATIO High 10-20 [facility] Comment on above: Performed By: #### L 501.6901, L100.0100, L505.5000, L501.9100, L500.4050 ####[facility] [address] [place], [address] Calcium [Mass/Vol] 8.7 mg/dL Normal 7.6-11.0 [facility] Comment on above: Performed By: #### L 501.6901, L100.0100, L505.5000, L501.9100, L500.4050 ####[facility] [address] [place], [address] Chloride [Moles/Vol] 101 mmol/L Normal 98-108 [facility] Comment on above: Performed By: #### L 501.6901, L100.0100, L505.5000, L501.9100, L500.4050 ####[facility] [address] [place], [address] CO2 [Moles/Vol] 23.4 mmol/L Normal 21.0-32.0 [facility] Comment on above: Performed By: #### L 501.6901, L100.0100, L505.5000, L501.9100, L500.4050 ####[facility] [address] [place], [address] Creatinine [Mass/Vol] 0.53 mg/dL Low 0.70-1.20 [facility] Comment on above: Performed By: #### L 501.6901, L100.0100, L505.5000, L501.9100, L500.4050 ####[facility] [address] [place], [address] ECRCL 110.46 ml/min Normal 50-250 [facility] Comment on above: Performed By: #### L 501.6901, L100.0100, L505.5000, L501.9100, L500.4050 ####[facility] [address] [place], [address] GAP 11 Normal 5-15 [facility] Comment on above: Performed By: #### L 501.6901, L100.0100, L505.5000, L501.9100, L500.4050 ####[facility] [address] [place], [address] GFR/1.73 sq M.predicted among non-blacks MDRD (S/P/Bld) [Vol rate/Area] 110 mL/min/{1.73_m2} Normal >60 [facility] Comment on above: Result Comment: mL/m in/1.73m2 CKD-EPI Creatinine Equation (2020) Performed By: #### L 501.6901, L100.0100, L505.5000, L501.9100, L500.4050 ####[facility] [address] [place], [address] Globulin (S) [Mass/Vol] 2.7 g/dL Normal 2.2-4.2 [facility] Comment on above: Performed By: #### L 501.6901, L100.0100, L505.5000, L501.9100, L500.4050 ####[facility] [address] [place], [address] Glucose [Mass/Vol] 429 mg/dL High 70-99 [facility] Comment on above: Performed By: #### L 501.6901, L100.0100, L505.5000, L501.9100, L500.4050 ####[facility] [address] [place], [address] Potassium [Moles/Vol] 4.3 mmol/L Normal 3.3-5.1 [facility] Comment on above: Performed By: #### L 501.6901, L100.0100, L505.5000, L501.9100, L500.4050 ####[facility] [address] [place], [address] Sodium [Moles/Vol] 135 mmol/L Normal 133-145 [facility] Comment on above: Performed By: #### L 501.6901, L100.0100, L505.5000, L501.9100, L500.4050 ####[facility] [address] [place], [address] T PROT 6.4 g/dL Normal 5.9-8.4 [facility] Comment on above: Performed By: #### L 501.6901, L100.0100, L505.5000, L501.9100, L500.4050 ####[facility] [address] [place], [address] Urea nitrogen [Mass/Vol] 13 mg/dL Normal 4-19 [facility] Comment on above: Performed By: #### L 501.6901, L100.0100, L505.5000, L501.9100, L500.4050 ####[facility] [address] [place], [address] Emergency Department Summary on 06-18-2024 Emergency Department Summary Normal [facility] Eosinophil percentageOrdered By: Albert Mccoy on 06-18-2024 Eosinophils/100 WBC (Bld) 3.0 % 0-5 [facility] Erythrocyte distribution wid th ratioOrdered By: Albert Mccoy on 06-18-2024 Erythrocyte distribution width (RBC) [Ratio] 13.7 % 11.6-14.6 [facility] Erythrocyte distribution wid th standard deviationOrdered By: Albert Mccoy on 06-18-2024 Erythrocyte distribution width (RBC) [Ratio] 43.1 fl 35.1-43.9 [facility] Glomerular filtration rate ( GFR) estimation/1.73 sq m using serum, plasma, or whole bOrdered By: Albert Mccoy on 06-18-2024 GFR/1.73 sq M.predicted among non-blacks MDRD (S/P/Bld) [Vol rate/Area] 110 mL/min/{1.73_m2} >60 [facility] Comment on above: mL/min/1.73m2 CKD-EP I Creatinine Equation (2020) [facility] By: Albert Mcc[facility] on 06-18-2024 Glucose [Mass/Vol] 414 mg/dL High 74-106 [facility] Comment on above: MANAGEMENT OF PATIEN T CARE PER NURSING PROTOCOL Hematocrit Auto (Bld) [Volum e fraction]Ordered By: Albert Mccoy on 06-18-2024 Hematocrit (Bld) [Volume fraction] 43.7 % 37-47 [facility] Hemoglobin measurementOrdere d By: Albert Mccoy on 06-18-2024 Hemoglobin (Bld) [Mass/Vol] 14.7 g/dL 12.0-15.0 [facility] Immature granulocytes/100 WB C Auto (Bld)Ordered By: Albert Mccoy on 06-18-2024 Immature granulocytes/100 WBC (Bld) 0.600 % 0.0-0.9 [facility] Comment on above: IG% - Immature Granu locytes (promyelocytes, myelocytes and metamyelocytes) > 1% indicates that a LEFT SHIFT is Present. L501.6901on 06-18-2024 BETA-HYDROXYBUT 0.5 mmol/L Normal 0.0-0.3 [facility] Comment on above: Performed By: #### L 501.6901, L100.0100, L505.5000, L501.9100, L500.4050 ####[facility] [address] [place], [address] Laboratory - Chemistry and C hemistry - challengeOrdered By: Albert Mccoy on 06-18-2024 AST [Catalytic activity/Vol] 52 U/L High <32 [facility] MCV (mean corpuscular volume ) determinationOrdered By: Albert Mccoy on 06-18-2024 MCV (RBC) [Entitic vol] 85.2 fL 81-99 [facility] Mean corpuscular hemoglobin (MCH) determinationOrdered By: Albert Mccoy on 06-18-2024 MCH (RBC) [Entitic mass] 28.7 pg 27.0-32.0 [facility] Mean corpuscular hemoglobin concentration (MCHC) determinationOrdered By: Albert Mccoy on 06-18-2024 MCHC (RBC) [Mass/Vol] 33.6 g/dL 32-36 [facility] Mean platelet volume determi nationOrdered By: Albert Mccoy on 06-18-2024 Platelet mean volume (Bld) [Entitic vol] 10.3 fL 6.2-12.0 [facility] Monocyte percentageOrdered B y: Albert Mccoy on 06-18-2024 Monocytes/100 WBC (Bld) 7.8 % 0-10 [facility] Neutrophil percentageOrdered By: Albert Mccoy on 06-18-2024 Neutrophils/100 WBC (Bld) 63.5 % 47-70 [facility] No Panel InformationOrdered By: Albert Mccoy on 06-18-2024 Urine Buprenorphine Qualitative Negative < 200 ng/mL [facility] Urine Oxycodone Screen Negative < 100 ng/mL [facility] Beta-Hydroxybutyric Acid mmol/L 0.5 mmol/L 0.0-0.3 [facility] Nucleated red blood cell per centageOrdered By: Albert Mccoy on 06-18-2024 Nucleated RBC/100 WBC (Bld) [Ratio] 0 % 0-5 [facility] Platelet countOrdered By: Davey Mccoy on 06-18-2024 Platelets (Bld) [#/Vol] 182 10*3/uL 150-450 [facility] Potassium measurement (mass/ volume)Ordered By: Albert Mccoy on 06-18-2024 Potassium (Unsp spec) [Mass/Vol] 4.3 mmol/L 3.3-5.1 [facility] Quantitative urine opiates m easurementOrdered By: Albert Mccoy on 06-18-2024 Opiates Ql (U) Negative < 300 ng/mL [facility] RBC Auto (Bld) [#/Vol]Ordere d By: Albert Mccoy on 06-18-2024 RBC (Bld) [#/Vol] 5.13 10*6/uL 4.2-5.4 [facility] Screening urine fentanyl saeed surementOrdered By: Albert Mccoy on 06-18-2024 fentaNYL Screen Ql (U) Negative [facility] Serum creatinine measurement (mass/volume)Ordered By: Albert Mccoy on 06-18-2024 Creatinine [Mass/Vol] 0.53 mg/dL Low 0.70-1.20 [facility] Serum globulin measurementOr dered By: Albert Mccoy on 06-18-2024 Globulin (S) [Mass/Vol] 2.7 g/dL 2.2-4.2 [facility] Serum glucose measurement (m ass/volume)Ordered By: Albert Mccoy on 06-18-2024 Glucose [Mass/Vol] 429 mg/dL High 70-99 [facility] Serum or plasma alanine ortiz otransferase (ALT) measurementOrdered By: Albert Mccoy on 06-18-2024 ALT [Catalytic activity/Vol] 54 U/L High <35 [facility] Serum or plasma albumin anna urement (mass/volume)Ordered By: Albert Mccoy on 06-18-2024 Albumin [Mass/Vol] 3.6 g/dL 3.5-5.0 [facility] Serum or plasma albumin/glob ulin mass ratioOrdered By: Albert Mccoy on 06-18-2024 Albumin/Globulin [Mass ratio] 1.3 {ratio} 0.9-2.4 [facility] Serum or plasma alkaline zeke sphatase measurementOrdered By: Albert Mccoy on 06-18-2024 ALP [Catalytic activity/Vol] 91 U/L 35-104 [facility] Serum or plasma calcium anna urement (mass/volume)Ordered By: Albert Mccoy on 06-18-2024 Calcium [Mass/Vol] 8.7 mg/dL 7.6-11.0 [facility] Serum or plasma ethanol anna urement (mass/volume)Ordered By: Albert Mccoy on 06-18-2024 Ethanol [Mass/Vol] mg/dL <10.1 [facility] Comment on above: This test is for med ical purposes only. The legal definition of intoxication varies according to local law. Serum or plasma urea nitroge n measurement (mass/volume)Ordered By: Albert Mccoy on 06-18-2024 Urea nitrogen [Mass/Vol] 13 mg/dL 4-19 [facility] Sodium levelOrdered By: Albert Mccoy on 06-18-2024 Sodium [Moles/Vol] 135 mmol/L 133-145 [facility] Total proteinOrdered By: Donna Mccoy on 06-18-2024 Protein [Mass/Vol] 6.4 g/dL 5.9-8.4 [facility] Urine Drug Screen (VISTA)on 06-18-2024 AMPHETAMINES Negative Normal <1000 ng/mL [facility] Comment on above: Performed By: #### L 501.6901, L100.0100, L505.5000, L501.9100, L500.4050 ####[facility] [address] [place], [address] BARBITIURATES Negative Normal < 200 ng/mL [facility] Comment on above: Performed By: #### L 501.6901, L100.0100, L505.5000, L501.9100, L500.4050 ####[facility] [address] [place], [address] BENZODIAZIPINE Negative Normal < 200 ng/mL [facility] Comment on above: Performed By: #### L 501.6901, L100.0100, L505.5000, L501.9100, L500.4050 ####[facility] [address] [place], [address] BUP Ur Drug Scr Negative Normal < 200 ng/mL [facility] Comment on above: Performed By: #### L 501.6901, L100.0100, L505.5000, L501.9100, L500.4050 ####[facility] [address] [place], [address] COCAINE Positive Normal < 300 ng/mL [facility] Comment on above: Result Comment: If c onfirmation testing is needed, a separate order will berequired to send out testing to the reference laboratory. Performed By: #### L 501.6901, L100.0100, L505.5000, L501.9100, L500.4050 ####[facility] [address] [place], [address] Fentanyl Negative Normal [facility] Comment on above: Performed By: #### L 501.6901, L100.0100, L505.5000, L501.9100, L500.4050 ####[facility] [address] [place], [address] METHADONE Negative Normal < 300 ng/mL [facility] Comment on above: Performed By: #### L 501.6901, L100.0100, L505.5000, L501.9100, L500.4050 ####[facility] [address] [place], [address] OPIATES Negative Normal < 300 ng/mL [facility] Comment on above: Performed By: #### L 501.6901, L100.0100, L505.5000, L501.9100, L500.4050 ####[facility] [address] [place], [address] OXYCODONE Negative Normal < 100 ng/mL [facility] Comment on above: Performed By: #### L 501.6901, L100.0100, L505.5000, L501.9100, L500.4050 ####[facility] [address] [place], [address] PCP Negative Normal < 25 ng/mL [facility] Comment on above: Performed By: #### L 501.6901, L100.0100, L505.5000, L501.9100, L500.4050 ####[facility] [address] [place], [address] THC Negative Normal < 50 ng/mL [facility] Comment on above: Performed By: #### L 501.6901, L100.0100, L505.5000, L501.9100, L500.4050 ####[facility] [address] [place], [address] Urine benzodiazepine levelOr dered By: Albert Mccoy on 06-18-2024 Benzodiazepines Ql (U) Negative < 200 ng/mL [facility] Urine cocaine levelOrdered B y: Albert Mccoy on 06-18-2024 Cocaine Ql (U) Positive < 300 ng/mL [facility] Comment on above: If confirmation test ing is needed, a separate order will be required to send out testing to the reference laboratory. Urine odwdw-9-nvajsljnprrtsg abinol (THC) measurementOrdered By: Albert Mccoy on 06-18-2024 Cannabinoids Screen Ql (U) Negative < 50 ng/mL [facility] Urine phencyclidine (PCP) de tectionOrdered By: Albert Mccoy on 06-18-2024 Phencyclidine Ql (U) Negative < 25 ng/mL [facility] White blood cell (WBC) count Ordered By: Albert Mccoy on 06-18-2024 WBC (Bld) [#/Vol] 5.0 10*3/uL 4.4-11.0 [facility] Absolute lymphocyte countOrd ered By: Teri Franklin on 05-11-2024 Lymphocytes Auto (Unsp spec) [#/Vol] 1.28 10*3/uL 0.83-4.51 [facility] Absolute neutrophil countOrd ered By: Terifreddie Franklin on 05-11-2024 Neutrophils (Bld) [#/Vol] 3.3 10*3/uL 2.0-7.7 [facility] Automated lymphocyte count a s percentage of total leukocytesOrdered By: Teri Franklin on 05-11-2024 Lymphocytes/100 WBC Auto (Unsp spec) 23.6 % 19-41 [facility] Basic Metabolic Profile (BMP )on 05-11-2024 BUN/CRE 33.9 RATIO High 10-20 [facility] Comment on above: Order Comment: 515-1 Performed By: #### L 501.5200, L501.6710, L100.0100, L500.2500 ####[facility] [address] [place], [address] CA,Total 9.0 mg/dL Normal 8.5-10.1 [facility] Comment on above: Order Comment: 515-1 Performed By: #### L 501.5200, L501.6710, L100.0100, L500.2500 ####[facility] [address] [place], [address] Chloride [Moles/Vol] 104 mmol/L Normal 98-107 [facility] Comment on above: Order Comment: 515-1 Performed By: #### L 501.5200, L501.6710, L100.0100, L500.2500 ####[facility] [address] [place], [address] CO2 [Moles/Vol] 26.0 mmol/L Normal 21.0-32.0 [facility] Comment on above: Order Comment: 515-1 Performed By: #### L 501.5200, L501.6710, L100.0100, L500.2500 ####[facility] [address] [place], [address] Creatinine [Mass/Vol] 0.62 mg/dL Normal 0.55-1.02 [facility] Comment on above: Order Comment: 515-1 Result Comment: The validity of the calculated GFR GFRAA in patients over70 years has not been determined. Clinical correlation isessential. Performed By: #### L 501.5200, L501.6710, L100.0100, L500.2500 ####[facility] [address] [place], [address] EST GFR - AA 129 mL/min Normal >60 [facility] Comment on above: Order Comment: 515-1 Result Comment: Afri can Slovenian GFR Calc Performed By: #### L 501.5200, L501.6710, L100.0100, L500.2500 ####[facility] [address] [place], [address] GAP 6 Normal 5-15 [facility] Comment on above: Order Comment: 515-1 Performed By: #### L 501.5200, L501.6710, L100.0100, L500.2500 ####[facility] [address] [place], [address] GFR/1.73 sq M.predicted among non-blacks MDRD (S/P/Bld) [Vol rate/Area] 107 mL/min/{1.73_m2} Normal >60 [facility] Comment on above: Order Comment: 515-1 Result Comment: Non- GFR Calc Performed By: #### L 501.5200, L501.6710, L100.0100, L500.2500 ####[facility] [address] [place], [address] Glucose [Mass/Vol] 239 mg/dL High 74-106 [facility] Comment on above: Order Comment: 515-1 Result Comment: Gluc ose result greater than or equal to 200 mg/dLsuggests DIABETES MELLITUS per A.D.A. criteria. Performed By: #### L 501.5200, L501.6710, L100.0100, L500.2500 ####[facility] [address] [place], [address] Potassium [Moles/Vol] 3.8 mmol/L Normal 3.5-5.1 [facility] Comment on above: Order Comment: 515-1 Performed By: #### L 501.5200, L501.6710, L100.0100, L500.2500 ####[facility] [address] [place], [address] Sodium [Moles/Vol] 136 mmol/L Normal 136-145 [facility] Comment on above: Order Comment: 515-1 Performed By: #### L 501.5200, L501.6710, L100.0100, L500.2500 ####[facility] [address] [place], [address] Urea nitrogen [Mass/Vol] 21 mg/dL High 7-18 [facility] Comment on above: Order Comment: 515-1 Performed By: #### L 501.5200, L501.6710, L100.0100, L500.2500 ####[facility] [address] [place], [address] Basophil percentageOrdered B y: Teri Franklin on 05-11-2024 Basophils/100 WBC (Bld) 0.7 % 0-1 [facility] Blood urea nitrogen (BUN)/cr eatinine ratioOrdered By: Teri Franklin on 05-11-2024 Urea nitrogen/Creatinine [Mass ratio] 33.9 mg/mg High 10-20 [facility] C-reactive protein measureme nt by high sensitivity methodOrdered By: Teri Franklin on 05-11-2024 C-reactive protein measurement by high sensitivity method 3.91 mg/L High 0.0-3.0 [facility] Comment on above: C-Reactive Protein ( CRP) provides useful information for thediagnosis, therapy and monitoring of inflammatory processesand associated diseases. For the evaluation of Relative Riskfor Cardiovascular Disease, a High Sensitivity CRP (HSCRP)should be ordered. CBC W/Diff, Automatedon 04-16 Absolute Lymph 1.28 X10 3/uL Normal 0.83-4.51 [facility] Comment on above: Order Comment: 515-1 Performed By: #### L 501.5200, L501.6710, L100.0100, L500.2500 ####[facility] [address] [place], [address] Absolute Neut 3.3 X10 3/uL Normal 2.0-7.7 [facility] Comment on above: Order Comment: 515-1 Performed By: #### L 501.5200, L501.6710, L100.0100, L500.2500 ####[facility] [address] [place], [address] Basophils/100 WBC (Bld) 0.7 % Normal 0-1 [facility] Comment on above: Order Comment: 515-1 Performed By: #### L 501.5200, L501.6710, L100.0100, L500.2500 ####[facility] [address] [place], [address] Eosinophils/100 WBC (Bld) 1.8 % Normal 0-5 [facility] Comment on above: Order Comment: 515-1 Performed By: #### L 501.5200, L501.6710, L100.0100, L500.2500 ####[facility] [address] [place], [address] Erythrocyte distribution width (RBC) [Ratio] 14.4 % Normal 11.6-14.6 [facility] Comment on above: Order Comment: 515-1 Performed By: #### L 501.5200, L501.6710, L100.0100, L500.2500 ####[facility] [address] [place], [address] Hematocrit (Bld) [Volume fraction] 34.5 % Low 37-47 [facility] Comment on above: Order Comment: 515-1 Performed By: #### L 501.5200, L501.6710, L100.0100, L500.2500 ####[facility] [address] [place], [address] Hemoglobin (Bld) [Mass/Vol] 10.9 g/dL Low 12.0-15.0 [facility] Comment on above: Order Comment: 515-1 Performed By: #### L 501.5200, L501.6710, L100.0100, L500.2500 ####[facility] [address] [place], [address] IG% 2.000 High 0.0-0.9 [facility] Comment on above: Order Comment: 515-1 Result Comment: IG% - Immature Granulocytes (promyelocytes, myelocytes andmetamyelocytes) > 1% indicates that a LEFT SHIFT is Present. Performed By: #### L 501.5200, L501.6710, L100.0100, L500.2500 ####[facility] [address] [place], [address] Lymphocytes/100 WBC (Bld) 23.6 % Normal 19-41 [facility] Comment on above: Order Comment: 515-1 Performed By: #### L 501.5200, L501.6710, L100.0100, L500.2500 ####[facility] [address] [place], [address] MCH (RBC) [Entitic mass] 27.8 pg Normal 27.0-32.0 [facility] Comment on above: Order Comment: 515-1 Performed By: #### L 501.5200, L501.6710, L100.0100, L500.2500 ####[facility] [address] [place], [address] MCHC (RBC) [Mass/Vol] 31.6 g/dL Low 32-36 [facility] Comment on above: Order Comment: 515-1 Performed By: #### L 501.5200, L501.6710, L100.0100, L500.2500 ####[facility] [address] [place], [address] MCV (RBC) [Entitic vol] 88.0 fL Normal 81-99 [facility] Comment on above: Order Comment: 515-1 Performed By: #### L 501.5200, L501.6710, L100.0100, L500.2500 ####[facility] [address] [place], [address] Monocytes/100 WBC (Bld) 11.8 % High 0-10 [facility] Comment on above: Order Comment: 515-1 Performed By: #### L 501.5200, L501.6710, L100.0100, L500.2500 ####[facility] [address] [place], [address] Neutrophils/100 WBC (Bld) 60.1 % Normal 47-70 [facility] Comment on above: Order Comment: 515-1 Performed By: #### L 501.5200, L501.6710, L100.0100, L500.2500 ####[facility] [address] [place], [address] Nucleated RBC (Bld) [#/Vol] 0 10*3/uL Normal 0-5 [facility] Comment on above: Order Comment: 515-1 Performed By: #### L 501.5200, L501.6710, L100.0100, L500.2500 ####[facility] [address] [place], [address] Platelet mean volume (Bld) [Entitic vol] 10.1 fL Normal 6.2-12.0 [facility] Comment on above: Order Comment: 515-1 Performed By: #### L 501.5200, L501.6710, L100.0100, L500.2500 ####[facility] [address] [place], [address] Platelets (Bld) [#/Vol] 375 10*3/uL Normal 150-450 [facility] Comment on above: Order Comment: 515-1 Performed By: #### L 501.5200, L501.6710, L100.0100, L500.2500 ####[facility] [address] [place], [address] RBC (Bld) [#/Vol] 3.92 10*6/uL Low 4.2-5.4 [facility] Comment on above: Order Comment: 515-1 Performed By: #### L 501.5200, L501.6710, L100.0100, L500.2500 ####[facility] [address] [place], [address] RDW SD 45.2 fl High 35.1-43.9 [facility] Comment on above: Order Comment: 515-1 Performed By: #### L 501.5200, L501.6710, L100.0100, L500.2500 ####[facility] [address] [place], [address] WBC (Bld) [#/Vol] 5.4 10*3/uL Normal 4.4-11.0 [facility] Comment on above: Order Comment: 515-1 Performed By: #### L 501.5200, L501.6710, L100.0100, L500.2500 ####[facility] [address] [place], [address] CRPon 05-11-2024 C-REACTIVE PROT 3.91 mg/L High 0.0-3.0 [facility] Comment on above: Order Comment: 515-1 Result Comment: C-Re active Protein (CRP) provides useful information for thediagnosis, therapy and monitoring of inflammatory processesand associated diseases. For the evaluation of Relative Riskfor Cardiovascular Disease, a High Sensitivity CRP (HSCRP)should be ordered. Performed By: #### L 501.5200, L501.6710, L100.0100, L500.2500 ####[facility] [address] [place], [place], [id number] Carbon dioxide measurementOr dered By: Teri Franklin on 05-11-2024 CO2 [Moles/Vol] 26.0 mmol/L 21.0-32.0 [facility] Chloride measurementOrdered By: Teri Franklin on 05-11-2024 Chloride [Moles/Vol] 104 mmol/L 98-107 [facility] Eosinophil percentageOrdered By: Teri Franklin on 05-11-2024 Eosinophils/100 WBC (Bld) 1.8 % 0-5 [facility] Erythrocyte distribution wid th ratioOrdered By: Teri Franklin on 05-11-2024 Erythrocyte distribution width (RBC) [Ratio] 14.4 % 11.6-14.6 [facility] Erythrocyte distribution wid th standard deviationOrdered By: Teri Franklin on 05-11-2024 Erythrocyte distribution width (RBC) [Ratio] 45.2 fl High 35.1-43.9 [facility] Glomerular filtration rate ( GFR) estimationOrdered By: Teri Franklin on 05-11-2024 GFR/1.73 sq M.predicted among non-blacks MDRD (S/P/Bld) [Vol rate/Area] 107 mL/min/{1.73_m2} >60 [facility] Comment on above: Non- GFR Calc Glucose measurementOrdered B y: Teri Franklin on 05-11-2024 Glucose [Mass/Vol] 239 mg/dL High 74-106 [facility] Comment on above: Glucose result great er than or equal to 200 mg/dLsuggests DIABETES MELLITUS per A.D.A. criteria. Hematocrit Auto (Bld) [Volum e fraction]Ordered By: Teri Farnklin on 05-11-2024 Hematocrit (Bld) [Volume fraction] 34.5 % Low 37-47 [facility] Hemoglobin measurementOrdere d By: Teri Franklin on 05-11-2024 Hemoglobin (Bld) [Mass/Vol] 10.9 g/dL Low 12.0-15.0 [facility] Immature granulocytes/100 WB C Auto (Bld)Ordered By: Teri Franklin on 05-11-2024 Immature granulocytes/100 WBC (Bld) 2.000 % High 0.0-0.9 [facility] Comment on above: IG% - Immature Granu locytes (promyelocytes, myelocytes and metamyelocytes) > 1% indicates that a LEFT SHIFT is Present. MCV (mean corpuscular volume ) determinationOrdered By: Teri Franklin on 05-11-2024 MCV (RBC) [Entitic vol] 88.0 fL 81-99 [facility] Magnesiumon 05-11-2024 Magnesium [Mass/Vol] 2.0 mg/dL Normal 1.6-2.6 [facility] Comment on above: Order Comment: 515-1 Performed By: #### L 501.5200, L501.6710, L100.0100, L500.2500 ####[facility] [address] [place], [address] Magnesium measurementOrdered By: Teri Franklin on 05-11-2024 Magnesium [Mass/Vol] 2.0 mg/dL 1.6-2.6 [facility] Mean corpuscular hemoglobin (MCH) determinationOrdered By: Teri Franklin on 05-11-2024 MCH (RBC) [Entitic mass] 27.8 pg 27.0-32.0 [facility] Mean corpuscular hemoglobin concentration (MCHC) determinationOrdered By: Teri Franklin on 05-11-2024 MCHC (RBC) [Mass/Vol] 31.6 g/dL Low 32-36 [facility] Mean platelet volume determi nationOrdered By: Teri Franklin on 05-11-2024 Platelet mean volume (Bld) [Entitic vol] 10.1 fL 6.2-12.0 [facility] Monocyte percentageOrdered B y: Teri Franklin on 05-11-2024 Monocytes/100 WBC (Bld) 11.8 % High 0-10 [facility] Neutrophil percentageOrdered By: Teri Franklin on 05-11-2024 Neutrophils/100 WBC (Bld) 60.1 % 47-70 [facility] Nucleated red blood cell per centageOrdered By: Teri Franklin on 05-11-2024 Nucleated RBC/100 WBC (Bld) [Ratio] 0 % 0-5 [facility] Platelet countOrdered By: Mehul Franklin on 05-11-2024 Platelets (Bld) [#/Vol] 375 10*3/uL 150-450 [facility] Potassium measurementOrdered By: Teri Franklin on 05-11-2024 Potassium [Moles/Vol] 3.8 mmol/L 3.5-5.1 [facility] RBC Auto (Bld) [#/Vol]Ordere d By: Teri Franklin on 05-11-2024 RBC (Bld) [#/Vol] 3.92 10*6/uL Low 4.2-5.4 [facility] Serum anion gap measurementO rdered By: Teri Franklin on 05-11-2024 Anion gap [Moles/Vol] 6 mmol/L 5-15 [facility] Serum or plasma calcium anna urement (mass/volume)Ordered By: Teri Franklin on 05-11-2024 Calcium [Mass/Vol] 9.0 mg/dL 8.5-10.1 [facility] Serum or plasma creatinine m easurement (mass/volume)Ordered By: Teri Franklin on 05-11-2024 Creatinine [Mass/Vol] 0.62 mg/dL 0.55-1.02 [facility] Comment on above: The validity of the calculated GFR & GFRAA in patients over 70 years has not been determined. Clinical correlation is essential. Serum or plasma urea nitroge n measurement (mass/volume)Ordered By: Teri Franklin on 05-11-2024 Urea nitrogen [Mass/Vol] 21 mg/dL High 7-18 [facility] Sodium levelOrdered By: Landy Franklin on 05-11-2024 Sodium [Moles/Vol] 136 mmol/L 136-145 [facility] White blood cell (WBC) count Ordered By: Teri Franklin on 05-11-2024 WBC (Bld) [#/Vol] 5.4 10*3/uL 4.4-11.0 [facility] Culture, Blood (WB)on 2024 CUB Blood cultures x2, from two different sites No growth in 5 days. Normal [facility] Comment on above: Performed By: #### L 501.4020, L300.4310, L500.4050, M200.1000, L300.3900, L100.0100, L503.6005 ####[facility] [address] [facility] [place], [place], [id number] CUB Blood cultures x2, from two different sites No growth in 5 days. Normal [facility] Comment on above: Performed By: #### M 200.1000 ####[facility] [address] [facility] [place], [place], [phone] Absolute lymphocyte countOrd ered By: Teri Franklin on 05-04-2024 Lymphocytes Auto (Unsp spec) [#/Vol] 0.88 10*3/uL 0.83-4.51 [facility] Absolute neutrophil countOrd ered By: Teri Franklin on 05-04-2024 Neutrophils (Bld) [#/Vol] 7.0 10*3/uL 2.0-7.7 [facility] Automated lymphocyte count a s percentage of total leukocytesOrdered By: Teri Farnklin on 05-04-2024 Lymphocytes/100 WBC Auto (Unsp spec) 10.0 % Low 19-41 [facility] Basic Metabolic Profile (BMP )on 05-04-2024 BUN/CRE 14.5 RATIO Normal 10-20 [facility] Comment on above: Order Comment: Performed By: #### L 501.9985, L503.0105, L501.5200, L506.1000, L501.9520, L500.2500, L100.0100, L500.4100 ####[facility] [address] [place], [address] CA,Total 8.8 mg/dL Normal 8.5-10.1 [facility] Comment on above: Order Comment: Performed By: #### L 501.9985, L503.0105, L501.5200, L506.1000, L501.9520, L500.2500, L100.0100, L500.4100 ####[facility] [address] [place], [address] Chloride [Moles/Vol] 102 mmol/L Normal 98-107 [facility] Comment on above: Order Comment: Performed By: #### L 501.9985, L503.0105, L501.5200, L506.1000, L501.9520, L500.2500, L100.0100, L500.4100 ####[facility] [address] [place], [address] CO2 [Moles/Vol] 36.0 mmol/L High 21.0-32.0 [facility] Comment on above: Order Comment: Performed By: #### L 501.9985, L503.0105, L501.5200, L506.1000, L501.9520, L500.2500, L100.0100, L500.4100 ####[facility] [address] [place], [address] Creatinine [Mass/Vol] 0.55 mg/dL Normal 0.55-1.02 [facility] Comment on above: Order Comment: Result Comment: The validity of the calculated GFR GFRAA in patients over70 years has not been determined. Clinical correlation isessential. Performed By: #### L 501.9985, L503.0105, L501.5200, L506.1000, L501.9520, L500.2500, L100.0100, L500.4100 ####[facility] [address] [place], [place], [phone] EST GFR - AA 148 mL/min Normal >60 [facility] Comment on above: Order Comment: Result Comment: Afri can Slovenian GFR Calc Performed By: #### L 501.9985, L503.0105, L501.5200, L506.1000, L501.9520, L500.2500, L100.0100, L500.4100 ####[facility] [address] [place], [place], [phone] GAP 2 Low 5-15 [facility] Comment on above: Order Comment: Performed By: #### L 501.9985, L503.0105, L501.5200, L506.1000, L501.9520, L500.2500, L100.0100, L500.4100 ####[facility] [address] [place], [place], [phone] GFR/1.73 sq M.predicted among non-blacks MDRD (S/P/Bld) [Vol rate/Area] 122 mL/min/{1.73_m2} Normal >60 [facility] Comment on above: Order Comment: Result Comment: Non- GFR Calc Performed By: #### L 501.9985, L503.0105, L501.5200, L506.1000, L501.9520, L500.2500, L100.0100, L500.4100 ####[facility] [address] [place], [place], [phone] Glucose [Mass/Vol] 109 mg/dL High 74-106 [facility] Comment on above: Order Comment: Result Comment: Fast ing Glucose result from 100 to 125 mg/dLsuggests IMPAIRED HOMEOSTASIS per A.D.A. criteria. Performed By: #### L 501.9985, L503.0105, L501.5200, L506.1000, L501.9520, L500.2500, L100.0100, L500.4100 ####[facility] [address] [place], [place], [phone] Potassium [Moles/Vol] 3.8 mmol/L Normal 3.5-5.1 [facility] Comment on above: Order Comment: Performed By: #### L 501.9985, L503.0105, L501.5200, L506.1000, L501.9520, L500.2500, L100.0100, L500.4100 ####[facility] [address] [place], [place], [phone] Sodium [Moles/Vol] 141 mmol/L Normal 136-145 [facility] Comment on above: Order Comment: Performed By: #### L 501.9985, L503.0105, L501.5200, L506.1000, L501.9520, L500.2500, L100.0100, L500.4100 ####[facility] [address] [place], [address] Urea nitrogen [Mass/Vol] 8 mg/dL Normal 7-18 [facility] Comment on above: Order Comment: Performed By: #### L 501.9985, L503.0105, L501.5200, L506.1000, L501.9520, L500.2500, L100.0100, L500.4100 ####[facility] [address] [place], [address] Basophil percentageOrdered B y: Teri Gudla on 05-04-2024 Basophils/100 WBC (Bld) 0.5 % 0-1 [facility] Blood urea nitrogen (BUN)/cr eatinine ratioOrdered By: Teri Franklin on 05-04-2024 Urea nitrogen/Creatinine [Mass ratio] 14.5 mg/mg 02-01 [facility] CBC W/Diff, Automatedon 04-16 Absolute Lymph 0.88 X10 3/uL Normal 0.83-4.51 [facility] Comment on above: Order Comment: Performed By: #### L 501.9985, L503.0105, L501.5200, L506.1000, L501.9520, L500.2500, L100.0100, L500.4100 ####[facility] [address] [place], [place], [phone] Absolute Neut 7.0 X10 3/uL Normal 2.0-7.7 [facility] Comment on above: Order Comment: Performed By: #### L 501.9985, L503.0105, L501.5200, L506.1000, L501.9520, L500.2500, L100.0100, L500.4100 ####[facility] [address] [place], [address] Basophils/100 WBC (Bld) 0.5 % Normal 0-1 [facility] Comment on above: Order Comment: Performed By: #### L 501.9985, L503.0105, L501.5200, L506.1000, L501.9520, L500.2500, L100.0100, L500.4100 ####[facility] [address] [place], [address] Eosinophils/100 WBC (Bld) 1.2 % Normal 0-5 [facility] Comment on above: Order Comment: Performed By: #### L 501.9985, L503.0105, L501.5200, L506.1000, L501.9520, L500.2500, L100.0100, L500.4100 ####[facility] [address] [place], [place], [phone] Erythrocyte distribution width (RBC) [Ratio] 14.3 % Normal 11.6-14.6 [facility] Comment on above: Order Comment: Performed By: #### L 501.9985, L503.0105, L501.5200, L506.1000, L501.9520, L500.2500, L100.0100, L500.4100 ####[facility] [address] [place], [phone] Hematocrit (Bld) [Volume fraction] 31.7 % Low 37-47 [facility] Comment on above: Order Comment: Performed By: #### L 501.9985, L503.0105, L501.5200, L506.1000, L501.9520, L500.2500, L100.0100, L500.4100 ####[facility] [address] [place], [place], [address] Hemoglobin (Bld) [Mass/Vol] 10.1 g/dL Low 12.0-15.0 [facility] Comment on above: Order Comment: Performed By: #### L 501.9985, L503.0105, L501.5200, L506.1000, L501.9520, L500.2500, L100.0100, L500.4100 ####[facility] [address] [place], [address] IG% 1.900 High 0.0-0.9 [facility] Comment on above: Order Comment: Result Comment: IG% - Immature Granulocytes (promyelocytes, myelocytes andmetamyelocytes) > 1% indicates that a LEFT SHIFT is Present. Performed By: #### L 501.9985, L503.0105, L501.5200, L506.1000, L501.9520, L500.2500, L100.0100, L500.4100 ####[facility] [address] [place], [address] Lymphocytes/100 WBC (Bld) 10.0 % Low 19-41 [facility] Comment on above: Order Comment: Performed By: #### L 501.9985, L503.0105, L501.5200, L506.1000, L501.9520, L500.2500, L100.0100, L500.4100 ####[facility] [address] [place], [address] MCH (RBC) [Entitic mass] 28.0 pg Normal 27.0-32.0 [facility] Comment on above: Order Comment: Performed By: #### L 501.9985, L503.0105, L501.5200, L506.1000, L501.9520, L500.2500, L100.0100, L500.4100 ####[facility] [address] [place], [address] MCHC (RBC) [Mass/Vol] 31.9 g/dL Low 32-36 [facility] Comment on above: Order Comment: Performed By: #### L 501.9985, L503.0105, L501.5200, L506.1000, L501.9520, L500.2500, L100.0100, L500.4100 ####[facility] [address] [place], [address] MCV (RBC) [Entitic vol] 87.8 fL Normal 81-99 [facility] Comment on above: Order Comment: Performed By: #### L 501.9985, L503.0105, L501.5200, L506.1000, L501.9520, L500.2500, L100.0100, L500.4100 ####[facility] [address] [place], [address] Monocytes/100 WBC (Bld) 7.3 % Normal 0-10 [facility] Comment on above: Order Comment: - Performed By: #### L 501.9985, L503.0105, L501.5200, L506.1000, L501.9520, L500.2500, L100.0100, L500.4100 ####[facility] [address] [place], [address] Neutrophils/100 WBC (Bld) 79.1 % High 47-70 [facility] Comment on above: Order Comment: - Performed By: #### L 501.9985, L503.0105, L501.5200, L506.1000, L501.9520, L500.2500, L100.0100, L500.4100 ####[facility] [address] [place], [address] Nucleated RBC (Bld) [#/Vol] 0 10*3/uL Normal 0-5 [facility] Comment on above: Order Comment: Performed By: #### L 501.9985, L503.0105, L501.5200, L506.1000, L501.9520, L500.2500, L100.0100, L500.4100 ####[facility] [address] [place], [address] Platelet mean volume (Bld) [Entitic vol] 10.3 fL Normal 6.2-12.0 [facility] Comment on above: Order Comment: - Performed By: #### L 501.9985, L503.0105, L501.5200, L506.1000, L501.9520, L500.2500, L100.0100, L500.4100 ####[facility] [address] [place], [address] Platelets (Bld) [#/Vol] 241 10*3/uL Normal 150-450 [facility] Comment on above: Order Comment: -1 Performed By: #### L 501.9985, L503.0105, L501.5200, L506.1000, L501.9520, L500.2500, L100.0100, L500.4100 ####[facility] [address] [place], [address] RBC (Bld) [#/Vol] 3.61 10*6/uL Low 4.2-5.4 [facility] Comment on above: Order Comment: - Performed By: #### L 501.9985, L503.0105, L501.5200, L506.1000, L501.9520, L500.2500, L100.0100, L500.4100 ####[facility] [address] [place], [address] RDW SD 45.0 fl High 35.1-43.9 [facility] Comment on above: Order Comment: - Performed By: #### L 501.9985, L503.0105, L501.5200, L506.1000, L501.9520, L500.2500, L100.0100, L500.4100 ####[facility] [address] [place], [address] WBC (Bld) [#/Vol] 8.8 10*3/uL Normal 4.4-11.0 [facility] Comment on above: Order Comment: - Performed By: #### L 501.9985, L503.0105, L501.5200, L506.1000, L501.9520, L500.2500, L100.0100, L500.4100 ####[facility] [address] [place], [address] PATH REV Reviewed Normal [facility] Comment on above: Result Comment: Neut rophilic leukocytosis with left shift.Normocytic anemia.Clinical correlation necessary.Sheldon Baeza M.D. 05/04/24 AMENDED REPORT 05/04/24 0852 PATH REV previously reported as: August freida Performed By: #### L 500.2500, L100.0100 ####[facility] [address] [place], [address] Carbon dioxide measurementOr dered By: Teri Franklin on 05-04-2024 CO2 [Moles/Vol] 36.0 mmol/L High 21.0-32.0 [facility] Chloride measurementOrdered By: Terifreddie Franklin on 05-04-2024 Chloride [Moles/Vol] 102 mmol/L 98-107 [facility] Eosinophil percentageOrdered By: Teri Franklin on 05-04-2024 Eosinophils/100 WBC (Bld) 1.2 % 0-5 [facility] Erythrocyte distribution wid th ratioOrdered By: Terifreddie Franklin on 05-04-2024 Erythrocyte distribution width (RBC) [Ratio] 14.3 % 11.6-14.6 [facility] Erythrocyte distribution wid th standard deviationOrdered By: Terifreddie Franklin on 05-04-2024 Erythrocyte distribution width (RBC) [Ratio] 45.0 fl High 35.1-43.9 [facility] Glomerular filtration rate ( GFR) estimationOrdered By: Teri Franklin on 05-04-2024 GFR/1.73 sq M.predicted among non-blacks MDRD (S/P/Bld) [Vol rate/Area] 122 mL/min/{1.73_m2} >60 [facility] Comment on above: Non- GFR Calc Glucose measurementOrdered B y: Teri Franklin on 05-04-2024 Glucose [Mass/Vol] 109 mg/dL High 74-106 [facility] Comment on above: Fasting Glucose resu lt from 100 to 125 mg/dL suggests IMPAIRED HOMEOSTASIS per A.D.A. criteria. Hematocrit Auto (Bld) [Volum e fraction]Ordered By: Teri Franklin on 05-04-2024 Hematocrit (Bld) [Volume fraction] 31.7 % Low 37-47 [facility] Hemoglobin A1con 05-04-2024 HbA1c (Bld) [Mass fraction] 10.5 % High 3.8-5.6 [facility] Comment on above: Order Comment: Result Comment: Norm al < 5.7 % Prediabetic 5.7 - 6.4 % Diabetic >or= 6.5 % Please note range changes. Performed By: #### L 501.9985, L503.0105, L501.5200, L506.1000, L501.9520, L500.2500, L100.0100, L500.4100 ####[facility] [address] [place], [address] Hemoglobin A1c percentageOrd ered By: Teri Franklin on 05-04-2024 HbA1c (Bld) [Mass fraction] 10.5 % High 3.8-5.6 [facility] Comment on above: Normal < 5.7 % Predi abetic 5.7 - 6.4 % Diabetic >or= 6.5 % Please note range changes. Hemoglobin measurementOrdere d By: Teri Franklin on 05-04-2024 Hemoglobin (Bld) [Mass/Vol] 10.1 g/dL Low 12.0-15.0 [facility] High density lipoprotein (HD L) measurementOrdered By: Teri Franklin on 05-04-2024 Cholesterol in HDL [Mass/Vol] 28 mg/dL Low >40 [facility] Comment on above: The drugs N-Acetylcy steine and Metamizole may falsely depress this assay. Reference Range HDL <40 mg/dL Low HDL Cholesterol HDL >or= 60 mg/dL High HDL Cholesterol Immature granulocytes/100 WB C Auto (Bld)Ordered By: Teri Franklin on 05-04-2024 Immature granulocytes/100 WBC (Bld) 1.900 % High 0.0-0.9 [facility] Comment on above: IG% - Immature Granu locytes (promyelocytes, myelocytes and metamyelocytes) > 1% indicates that a LEFT SHIFT is Present. Lipid Profileon 05-04-2024 Cholesterol [Mass/Vol] 146 mg/dL Normal 200 [facility] Comment on above: Order Comment: Result Comment: <200 mg/dL Desirable 200-240 mg/dL Borderline >240 mg/dL High Risk Performed By: #### L 501.9985, L503.0105, L501.5200, L506.1000, L501.9520, L500.2500, L100.0100, L500.4100 ####[facility] [address] [place], [address] Cholesterol in HDL [Mass/Vol] 28 mg/dL Low [facility] Comment on above: Order Comment: Result Comment: The drugs N-Acetylcysteine and Metamizole may falselydepress this assay. Reference Range HDL <40 mg/dL Low HDL Cholesterol HDL >or= 60 mg/dL High HDL Cholesterol Performed By: #### L 501.9985, L503.0105, L501.5200, L506.1000, L501.9520, L500.2500, L100.0100, L500.4100 ####[facility] [address] [place], [address] Cholesterol in LDL [Mass/Vol] 96 mg/dL Normal 0-130 [facility] Comment on above: Order Comment: Performed By: #### L 501.9985, L503.0105, L501.5200, L506.1000, L501.9520, L500.2500, L100.0100, L500.4100 ####[facility] [address] [place], [address] Cholesterol in VLDL [Mass/Vol] 22 mg/dL Normal 5-40 [facility] Comment on above: Order Comment: Performed By: #### L 501.9985, L503.0105, L501.5200, L506.1000, L501.9520, L500.2500, L100.0100, L500.4100 ####[facility] [address] [place], [address] Triglyceride [Mass/Vol] 109 mg/dL Normal [facility] Comment on above: Order Comment: 212-1 Result Comment: The drugs N-Acetylcysteine and Metamizole may falselydepress this assay.Serum Triglycerides Reference Interval Normal <150 mg/dL Borderline high 150 - 199 mg/dL High 200 - 499 mg/dL Very High > or = 500 mg/dL Performed By: #### L 501.9985, L503.0105, L501.5200, L506.1000, L501.9520, L500.2500, L100.0100, L500.4100 ####[facility] [address] [place], [place], [id number] Low density lipoprotein (LDL ) cholesterol measurementOrdered By: Teri Franklin on 05-04-2024 Cholesterol in LDL [Mass/Vol] 96 mg/dL 0-130 [facility] MCV (mean corpuscular volume ) determinationOrdered By: Teri Franklin on 05-04-2024 MCV (RBC) [Entitic vol] 87.8 fL 81-99 [facility] Magnesiumon 05-04-2024 Magnesium [Mass/Vol] 2.1 mg/dL Normal 1.6-2.6 [facility] Comment on above: Order Comment: 212-1 Performed By: #### L 501.9985, L503.0105, L501.5200, L506.1000, L501.9520, L500.2500, L100.0100, L500.4100 ####[facility] [address] [place], [place], [id number] Magnesium measurementOrdered By: Teri Franklin on 05-04-2024 Magnesium [Mass/Vol] 2.1 mg/dL 1.6-2.6 [facility] Mean corpuscular hemoglobin (MCH) determinationOrdered By: Teri Franklin on 05-04-2024 MCH (RBC) [Entitic mass] 28.0 pg 27.0-32.0 [facility] Mean corpuscular hemoglobin concentration (MCHC) determinationOrdered By: Teri Franklin on 05-04-2024 MCHC (RBC) [Mass/Vol] 31.9 g/dL Low 32-36 [facility] Mean platelet volume determi nationOrdered By: Teri Franklin on 05-04-2024 Platelet mean volume (Bld) [Entitic vol] 10.3 fL 6.2-12.0 [facility] Monocyte percentageOrdered B y: Teri Franklin on 05-04-2024 Monocytes/100 WBC (Bld) 7.3 % 0-10 [facility] Neutrophil percentageOrdered By: Teri Franklin on 05-04-2024 Neutrophils/100 WBC (Bld) 79.1 % High 47-70 [facility] Nucleated red blood cell per centageOrdered By: Teri Franklin on 05-04-2024 Nucleated RBC/100 WBC (Bld) [Ratio] 0 % 0-5 [facility] Platelet countOrdered By: Mehul Franklin on 05-04-2024 Platelets (Bld) [#/Vol] 241 10*3/uL 150-450 [facility] Potassium measurementOrdered By: Teri Franklin on 05-04-2024 Potassium [Moles/Vol] 3.8 mmol/L 3.5-5.1 [facility] RBC Auto (Bld) [#/Vol]Ordere d By: Teri Franklin on 05-04-2024 RBC (Bld) [#/Vol] 3.61 10*6/uL Low 4.2-5.4 [facility] Serum anion gap measurementO rdered By: Teri Franklin on 05-04-2024 Anion gap [Moles/Vol] 2 mmol/L Low 5-15 [facility] Serum or plasma calcium anna urement (mass/volume)Ordered By: Teri Franklin on 05-04-2024 Calcium [Mass/Vol] 8.8 mg/dL 8.5-10.1 [facility] Serum or plasma cholesterol measurement (mass/volume)Ordered By: Teri Franklin on 05-04-2024 Cholesterol [Mass/Vol] 146 mg/dL <200 [facility] Comment on above: <200 mg/dL Desirable 200-240 mg/dL Borderline >240 mg/dL High Risk Serum or plasma creatinine m easurement (mass/volume)Ordered By: Teri Franklin on 05-04-2024 Creatinine [Mass/Vol] 0.55 mg/dL 0.55-1.02 [facility] Comment on above: The validity of the calculated GFR & GFRAA in patients over 70 years has not been determined. Clinical correlation is essential. Serum or plasma thyroid stim ulating hormone (TSH) measurement (units/volume)Ordered By: Teri Franklin on 05-04-2024 TSH Qn 3.000 uIU/mL 0.358-3.740 [facility] Serum or plasma urea nitroge n measurement (mass/volume)Ordered By: Teri Franklin on 05-04-2024 Urea nitrogen [Mass/Vol] 8 mg/dL 7-18 [facility] Sodium levelOrdered By: Landy Franklin on 05-04-2024 Sodium [Moles/Vol] 141 mmol/L 136-145 [facility] Thyroid Stim Hormone (TSH)on 05-04-2024 TSH 3.000 uIU/mL Normal 0.358-3.740 [facility] Comment on above: Order Comment: 212-1 Performed By: #### L 501.9985, L503.0105, L501.5200, L506.1000, L501.9520, L500.2500, L100.0100, L500.4100 ####[facility] [address] [place], [address] Triglycerides measurementOrd ered By: Teri Franklin on 05-04-2024 Triglyceride [Mass/Vol] 109 mg/dL <199 [facility] Comment on above: The drugs N-Acetylcy steine and Metamizole may falsely depress this assay.Serum Triglycerides Reference Interval Normal <150 mg/dL Borderline high 150 - 199 mg/dL High 200 - 499 mg/dL Very High > or = 500 mg/dL Very low density lipoprotein (VLDL) cholesterol measurementOrdered By: Teri Franklin on 05-04-2024 Very low density lipoprotein (VLDL) cholesterol measurement 22 mg/dL 5-40 [facility] Vitamin B12on 05-04-2024 Cobalamin (Vitamin B12) [Mass/Vol] 1184 pg/mL High 211-911 [facility] Comment on above: Order Comment: Performed By: #### L 501.9985, L503.0105, L501.5200, L506.1000, L501.9520, L500.2500, L100.0100, L500.4100 ####[facility] [address] [place], [place], [id number] Vitamin B12 measurementOrder ed By: Teri Franklin on 05-04-2024 Cobalamin (Vitamin B12) [Mass/Vol] 1184 pg/mL High [facility] Vitamin D,25 Hydroxyon 05-04 Vitamin D 25-OH 28.9 ng/mL Normal [facility] Comment on above: Order Comment: Result Comment: Crissy min D 25(OH) Status Range Deficiency <20 ng/mL (50nmol/L) Insufficiency 20 - 30 ng/mL (50 - 75 nmol/L) Sufficiency 30 - 100 ng/mL (75 - 250 nmol/L) Toxicity >100 ng/mL (>250 nmol/L) Performed By: #### L 501.9985, L503.0105, L501.5200, L506.1000, L501.9520, L500.2500, L100.0100, L500.4100 ####[facility] [address] [place], [address] White blood cell (WBC) count Ordered By: Teri Franklin on 05-04-2024 WBC (Bld) [#/Vol] 8.8 10*3/uL 4.4-11.0 [facility] Bedside Glucoseon 05-02-2024 FINGERSTICK GLU 63 mg/dL Low 74-106 [facility] Comment on above: Result Comment: DELLA COX OF PATIENT CARE PER NURSING PROTOCOL Performed By: #### L 501.080 ####[facility] [address] [place], [address] Hepatitis C,RNA PCR Viral Lo wet sander 05-02-2024 HCV QT RNA PCR >100,000,000 Normal . [facility] Comment on above: Performed By: #### L 3000.0375, L7000.7000 ####[facility] [address] [place], [place], [id number] TEST INFO: Comment Normal . [facility] Comment on above: Result Comment: The quantitative range of this assay is 15 IU/mL to 100million IU/mL.Performed at: - [facility] [id number] Director: Dave Peters PhD, Phone: [phone] at: [facility] [id number] Director: Ellie Arshad MD, Phone: [phone] Performed By: #### L 3000.0375, L7000.7000 ####[facility] [address] [place], [place], [phone] Hepatitis Panel Acuteon 04-15 HCV Interpretat Comment Normal . [facility] Comment on above: Result Comment: Posi tive HCV antibody screen with the presence of HCV RNAis consistent with active infection. Performed By: #### L 3000.0375, L7000.7000 ####[facility] [address] [place], [place], [id number] HCV log 10 TNP Normal . [facility] Comment on above: Performed By: #### L 3000.0375, L7000.7000 ####[facility] [address] [place], [place], [id number] HEP B CORE,IgM Negative Normal Negative [facility] Comment on above: Performed By: #### L 3000.0375, L7000.7000 ####[facility] [address] [place], [place], [phone] HEP B SURF AG Negative Normal Negative [facility] Comment on above: Performed By: #### L 3000.0375, L7000.7000 ####[facility] [address] [place], [address] Hep C Quant >100,000,000 Normal . [facility] Comment on above: Performed By: #### L 3000.0375, L7000.7000 ####[facility] [address] [place], [address] HEP C VIRUS AB Reactive Abnormal Non Reactive [facility] Comment on above: Performed By: #### L 3000.0375, L7000.7000 ####[facility] [address] [place], [address] HEPATITIS A-IgM Negative Normal Negative [facility] Comment on above: Result Comment: A ne gative anti-HAV IgM result suggests no recent orcurrent HAV infection. Performed By: #### L 3000.0375, L7000.7000 ####[facility] [address] [place], [address] Test Informatio Comment Normal . [facility] Comment on above: Result Comment: The quantitative range of this assay is 15 IU/mL to 100million IU/mL. Performed By: #### L 3000.0375, L7000.7000 ####[facility] [address] [place], [address] Urine Cultureon 05-02-2024 URC Yeast, not Nirmala albicans [place] Count 1000-10,000 Normal [facility] Comment on above: Performed By: #### M 100.2200, L400.0001 ####[facility] [address] [place], [address] Absolute lymphocyte countOrd ered By: Farhad Ma on 05-01-2024 Lymphocytes Auto (Unsp spec) [#/Vol] 2.23 10*3/uL 0.83-4.51 [facility] Absolute neutrophil countOrd ered By: Farhad Ma on 05-01-2024 Neutrophils (Bld) [#/Vol] 13.8 10*3/uL High 2.0-7.7 [facility] Basic Metabolic Profile (BMP )on 05-01-2024 BUN/CRE 18.1 RATIO Normal 10-20 [facility] Comment on above: Performed By: #### L 500.2500, L100.0100 ####[facility] [address] [place], [address] CA,Total 7.9 mg/dL Low 8.5-10.1 [facility] Comment on above: Performed By: #### L 500.2500, L100.0100 ####[facility] [address] [place], [address] Chloride [Moles/Vol] 109 mmol/L High 98-107 [facility] Comment on above: Performed By: #### L 500.2500, L100.0100 ####[facility] [address] [place], [address] CO2 [Moles/Vol] 27.0 mmol/L Normal 21.0-32.0 [facility] Comment on above: Performed By: #### L 500.2500, L100.0100 ####[facility] [address] [place], [address] Creatinine [Mass/Vol] 0.50 mg/dL Low 0.55-1.02 [facility] Comment on above: Result Comment: The validity of the calculated GFR GFRAA in patients over70 years has not been determined. Clinical correlation isessential. Performed By: #### L 500.2500, L100.0100 ####[facility] [address] [place], [address] ECRCL 138.94 ml/min Normal [facility] Comment on above: Performed By: #### L 500.2500, L100.0100 ####[facility] [address] [place], [address] EST GFR - AA 167 mL/min Normal >60 [facility] Comment on above: Result Comment: Afri can Slovenian GFR Calc Performed By: #### L 500.2500, L100.0100 ####[facility] [address] [place], [address] GAP 3 Low 5-15 [facility] Comment on above: Performed By: #### L 500.2500, L100.0100 ####[facility] [address] [place], [address] GFR/1.73 sq M.predicted among non-blacks MDRD (S/P/Bld) [Vol rate/Area] 138 mL/min/{1.73_m2} Normal >60 [facility] Comment on above: Result Comment: Non- GFR Calc Performed By: #### L 500.2500, L100.0100 ####[facility] [address] [place], [address] Glucose [Mass/Vol] 110 mg/dL High 74-106 [facility] Comment on above: Result Comment: Fast ing Glucose result from 100 to 125 mg/dLsuggests IMPAIRED HOMEOSTASIS per A.D.A. criteria. Performed By: #### L 500.2500, L100.0100 ####[facility] [address] [place], [address] Potassium [Moles/Vol] 3.8 mmol/L Normal 3.5-5.1 [facility] Comment on above: Performed By: #### L 500.2500, L100.0100 ####[facility] [address] [place], [address] Sodium [Moles/Vol] 140 mmol/L Normal 136-145 [facility] Comment on above: Performed By: #### L 500.2500, L100.0100 ####[facility] [address] [place], [address] Urea nitrogen [Mass/Vol] 9 mg/dL Normal 7-18 [facility] Comment on above: Performed By: #### L 500.2500, L100.0100 ####[facility] [address] [place], [address] BUN Normal 7-18 [facility] Comment on above: Result Comment: Canc elled via OM: Order cancelled - Patient discharged Performed By: #### L 100.0100, L500.2500 ####[facility] [address] [place], [address] BUN/CRE Normal 10-20 [facility] Comment on above: Result Comment: Canc elled via OM: Order cancelled - Patient discharged Performed By: #### L 100.0100, L500.2500 ####[facility] [address] [place], [address] CA,Total Normal 8.5-10.1 [facility] Comment on above: Result Comment: Canc elled via OM: Order cancelled - Patient discharged Performed By: #### L 100.0100, L500.2500 ####[facility] [address] [place], [address] CL Normal 98-107 [facility] Comment on above: Result Comment: Canc elled via OM: Order cancelled - Patient discharged Performed By: #### L 100.0100, L500.2500 ####[facility] [address] [place], [address] CO2 Normal 21.0-32.0 [facility] Comment on above: Result Comment: Canc elled via OM: Order cancelled - Patient discharged Performed By: #### L 100.0100, L500.2500 ####[facility] [address] [place], [address] CREAT,SERUM Normal 0.55-1.02 [facility] Comment on above: Result Comment: Canc elled via OM: Order cancelled - Patient discharged Performed By: #### L 100.0100, L500.2500 ####[facility] [address] [place], [address] EST GFR Normal >60 [facility] Comment on above: Result Comment: Canc elled via OM: Order cancelled - Patient discharged Performed By: #### L 100.0100, L500.2500 ####[facility] [address] [place], [address] EST GFR - AA Normal >60 [facility] Comment on above: Result Comment: Canc elled via OM: Order cancelled - Patient discharged Performed By: #### L 100.0100, L500.2500 ####[facility] [address] [place], [address] GAP Normal 5-15 [facility] Comment on above: Result Comment: Canc elled via OM: Order cancelled - Patient discharged Performed By: #### L 100.0100, L500.2500 ####[facility] [address] [place], [address] GLU Normal 74-106 [facility] Comment on above: Result Comment: Canc elled via OM: Order cancelled - Patient discharged Performed By: #### L 100.0100, L500.2500 ####[facility] [address] [place], [address] Potassium Normal 3.5-5.1 [facility] Comment on above: Result Comment: Canc elled via OM: Order cancelled - Patient discharged Performed By: #### L 100.0100, L500.2500 ####[facility] [address] [place], [address] Basic Metabolic Profile (BMP) Normal 136-145 [facility] Comment on above: Result Comment: Canc elled via OM: Order cancelled - Patient discharged Performed By: #### L 100.0100, L500.2500 ####[facility] [address] [place], [address] Bedside Glucoseon 05-01-2024 FINGERSTICK GLU 118 mg/dL High 74-106 [facility] Comment on above: Result Comment: DELLA GEMENT OF PATIENT CARE PER NURSING PROTOCOL Performed By: #### L 501.080 ####[facility] [address] [place], [address] FINGERSTICK GLU 90 mg/dL Normal 74-106 [facility] Comment on above: Result Comment: DELLA GEMENT OF PATIENT CARE PER NURSING PROTOCOL Performed By: #### L 501.080 ####[facility] [address] [place], [address] FINGERSTICK GLU 109 mg/dL High 74-106 [facility] Comment on above: Result Comment: DELLA GEMENT OF PATIENT CARE PER NURSING PROTOCOL Performed By: #### L 501.080 ####[facility] [address] [place], [address] Blood band neutrophil count as percentage of total leukocytesOrdered By: Farhad Ma on 05-01-2024 Band form neutrophils/100 WBC (Bld) 2 % 0-5 [facility] Blood eosinophils/100 leukoc ytesOrdered By: Farhad Ma on 05-01-2024 Eosinophils/100 WBC (Bld) 2 % 0-5 [facility] Blood lymphocytes/100 leukoc ytesOrdered By: Farhad Ma on 05-01-2024 Lymphocytes/100 WBC (Bld) 13 % Low 19-41 [facility] Blood metamyelocytes/100 alexander kocytesOrdered By: Farhad Ma on 05-01-2024 Metamyelocytes/100 WBC (Bld) 2 % High 0-1 [facility] Blood monocytes/100 leukocyt esOrdered By: Farhad Ma on 05-01-2024 Monocytes/100 WBC (Bld) 3 % 0-10 [facility] Blood segmented neutrophils/ 100 leukocytesOrdered By: Farhad Ma on 05-01-2024 Segmented neutrophils/100 WBC (Bld) 78 % High 47-70 [facility] Blood urea nitrogen (BUN)/cr eatinine ratioOrdered By: Farhad Ma on 05-01-2024 Urea nitrogen/Creatinine [Mass ratio] 18.1 mg/mg 10-20 [facility] CBC W/Diff, Automatedon 04-15 Absolute Neut Normal 2.0-7.7 [facility] Comment on above: Result Comment: Canc elled via OM: Order cancelled - Patient discharged Performed By: #### L 100.0100, L500.2500 ####[facility] [address] [place], [address] HCT Normal 37-47 [facility] Comment on above: Result Comment: Canc elled via OM: Order cancelled - Patient discharged Performed By: #### L 100.0100, L500.2500 ####[facility] [address] [place], [address] HGB Normal 12.0-15.0 [facility] Comment on above: Result Comment: Canc elled via OM: Order cancelled - Patient discharged Performed By: #### L 100.0100, L500.2500 ####[facility] [address] [place], [address] MCH Normal 27.0-32.0 [facility] Comment on above: Result Comment: Canc elled via OM: Order cancelled - Patient discharged Performed By: #### L 100.0100, L500.2500 ####[facility] [address] [place], [address] MCHC Normal 32-36 [facility] Comment on above: Result Comment: Canc elled via OM: Order cancelled - Patient discharged Performed By: #### L 100.0100, L500.2500 ####[facility] [address] [place], [address] MCV Normal 81-99 [facility] Comment on above: Result Comment: Canc elled via OM: Order cancelled - Patient discharged Performed By: #### L 100.0100, L500.2500 ####[facility] [address] [place], [address] NEUT% Normal 47-70 [facility] Comment on above: Result Comment: Canc elled via OM: Order cancelled - Patient discharged Performed By: #### L 100.0100, L500.2500 ####[facility] [address] [place], [address] PLT Normal 150-450 [facility] Comment on above: Result Comment: Canc elled via OM: Order cancelled - Patient discharged Performed By: #### L 100.0100, L500.2500 ####[facility] [address] [place], [address] RBC Normal 4.2-5.4 [facility] Comment on above: Result Comment: Canc elled via OM: Order cancelled - Patient discharged Performed By: #### L 100.0100, L500.2500 ####[facility] [address] [place], [address] RDW CV Normal 11.6-14.6 [facility] Comment on above: Result Comment: Canc elled via OM: Order cancelled - Patient discharged Performed By: #### L 100.0100, L500.2500 ####[facility] [address] [place], [address] RDW SD Normal 35.1-43.9 [facility] Comment on above: Result Comment: Canc elled via OM: Order cancelled - Patient discharged Performed By: #### L 100.0100, L500.2500 ####[facility] [address] [place], [address] WBC Normal 4.4-11.0 [facility] Comment on above: Result Comment: Canc elled via OM: Order cancelled - Patient discharged Performed By: #### L 100.0100, L500.2500 ####[facility] [address] [place], [place], [address] Carbon dioxide measurementOr dered By: Farhad Ma on 05-01-2024 CO2 [Moles/Vol] 27.0 mmol/L 21.0-32.0 [facility] Chloride measurementOrdered By: Farhad Ma on 05-01-2024 Chloride [Moles/Vol] 109 mmol/L High 98-107 [facility] Culture, Blood (WB)on 2024 CUB Blood cultures x2, from two different sites No growth in 5 days. Normal [facility] Comment on above: Performed By: #### M 200.1000 ####[facility] [address] [place], [address] Erythrocyte distribution wid th ratioOrdered By: Farhad Ma on 05-01-2024 Erythrocyte distribution width (RBC) [Ratio] 14.2 % 11.6-14.6 [facility] Erythrocyte distribution wid th standard deviationOrdered By: Farhad Ma on 05-01-2024 Erythrocyte distribution width (RBC) [Ratio] 43.4 fl 35.1-43.9 [facility] Erythrocyte morphology asses smentOrdered By: Farhad Ma on 05-01-2024 RBC morphology finding Nom (Bld) NORM C+C NORMAL NORM C&C [facility] Glomerular filtration rate ( GFR) estimationOrdered By: Farhad Ma on 05-01-2024 GFR/1.73 sq M.predicted among non-blacks MDRD (S/P/Bld) [Vol rate/Area] 138 mL/min/{1.73_m2} >60 [facility] Comment on above: Non- GFR Calc Glucose measurementOrdered B y: Farhad Ma on 05-01-2024 Glucose [Mass/Vol] 110 mg/dL High 74-106 [facility] Comment on above: Fasting Glucose resu lt from 100 to 125 mg/dL suggests IMPAIRED HOMEOSTASIS per A.D.A. criteria. [facility] deOrdered By: Farhad Ma on 05-01-2024 Glucose [Mass/Vol] 118 mg/dL High 74-106 [facility] Comment on above: MANAGEMENT OF PATIEN T CARE PER NURSING PROTOCOL Hematocrit Auto (Bld) [Volum e fraction]Ordered By: Farhad Ma on 05-01-2024 Hematocrit (Bld) [Volume fraction] 29.1 % Low 37-47 [facility] Hemoglobin measurementOrdere d By: Farhad Ma on 05-01-2024 Hemoglobin (Bld) [Mass/Vol] 9.5 g/dL Low 12.0-15.0 [facility] MCV (mean corpuscular volume ) determinationOrdered By: Farhad Ma on 05-01-2024 MCV (RBC) [Entitic vol] 85.6 fL 81-99 [facility] Mean corpuscular hemoglobin (MCH) determinationOrdered By: Farhad Ma on 05-01-2024 MCH (RBC) [Entitic mass] 27.9 pg 27.0-32.0 [facility] Mean corpuscular hemoglobin concentration (MCHC) determinationOrdered By: Farhad Ma on 05-01-2024 MCHC (RBC) [Mass/Vol] 32.6 g/dL 32-36 [facility] Mean platelet volume determi nationOrdered By: Farhad Ma on 05-01-2024 Platelet mean volume (Bld) [Entitic vol] 9.3 fL 6.2-12.0 [facility] Platelet countOrdered By: Eva Ma on 05-01-2024 Platelets (Bld) [#/Vol] 225 10*3/uL 150-450 [facility] Platelet estimateOrdered By: Farhad Ma on 05-01-2024 Platelets LM Ql (Bld) ADEQUATE ADEQ [facility] Potassium measurementOrdered By: Farhad Ma on 05-01-2024 Potassium [Moles/Vol] 3.8 mmol/L 3.5-5.1 [facility] RBC Auto (Bld) [#/Vol]Ordere d By: Farhad Ma on 05-01-2024 RBC (Bld) [#/Vol] 3.40 10*6/uL Low 4.2-5.4 [facility] Review by pathologistOrdered By: Farhad Ma on 05-01-2024 Pathologist review Danny (Unsp spec) [Interp] Reviewed [facility] Comment on above: Previous reported re sult: Kim guan Edited by: CHARLENE on 05/04/24:0852Neutrophilic leukocytosis with left shift.Normocytic anemia.Clinical correlation necessary.Sheldon Baeza M.D. 05/04/24 AMENDED REPORT 05/04/24 0852 PATH REV previously reported as: Kim guan Serum anion gap measurementO rdered By: Farhad Ma on 05-01-2024 Anion gap [Moles/Vol] 3 mmol/L Low 5-15 [facility] Serum or plasma calcium anna urement (mass/volume)Ordered By: Farhad Ma on 05-01-2024 Calcium [Mass/Vol] 7.9 mg/dL Low 8.5-10.1 [facility] Serum or plasma creatinine m easurement (mass/volume)Ordered By: Farhad Ma on 05-01-2024 Creatinine [Mass/Vol] 0.50 mg/dL Low 0.55-1.02 [facility] Comment on above: The validity of the calculated GFR & GFRAA in patients over 70 years has not been determined. Clinical correlation is essential. Serum or plasma urea nitroge n measurement (mass/volume)Ordered By: Farhad Ma on 05-01-2024 Urea nitrogen [Mass/Vol] 9 mg/dL 7-18 [facility] Sodium levelOrdered By: David Ma on 05-01-2024 Sodium [Moles/Vol] 140 mmol/L 136-145 [facility] Total cell countOrdered By: Farhad Ma on 05-01-2024 Cells counted Molgen (Bld/Tiss) [#] 100 MANUAL DIFF [facility] White blood cell (WBC) count Ordered By: Farhad Ma on 05-01-2024 WBC (Bld) [#/Vol] 17.2 10*3/uL High 4.4-11.0 [facility] BNP (brain natriuretic pepti de measurement)Ordered By: Vicente Rossi on 04-30-2024 Natriuretic peptide B (Bld) [Mass/Vol] 110.2 pg/mL High 0-100 [facility] BNP,B-Type NATRIURETIC PEPTI Angela 04-30-2024 Natriuretic peptide B (Bld) [Mass/Vol] 110.2 pg/mL High 0-100 [facility] Comment on above: Performed By: #### L 503.6620 ####[facility] [address] [place], [address] Natriuretic peptide B (Bld) [Mass/Vol] 99.7 pg/mL Normal 0-100 [facility] Comment on above: Performed By: #### L 503.6620 ####[facility] [address] [place], [address] Basic Metabolic Profile (BMP )on 04-30-2024 BUN Normal 7-18 [facility] Comment on above: Result Comment: Canc elled via OM: Order cancelled - Patient discharged Performed By: #### L 500.2500, L100.0100 ####[facility] [address] [place], [address] BUN/CRE Normal 10-20 [facility] Comment on above: Result Comment: Canc elled via OM: Order cancelled - Patient discharged Performed By: #### L 500.2500, L100.0100 ####[facility] [address] [place], [address] CA,Total Normal 8.5-10.1 [facility] Comment on above: Result Comment: Canc elled via OM: Order cancelled - Patient discharged Performed By: #### L 500.2500, L100.0100 ####[facility] [address] [place], [address] CL Normal 98-107 [facility] Comment on above: Result Comment: Canc elled via OM: Order cancelled - Patient discharged Performed By: #### L 500.2500, L100.0100 ####[facility] [address] [place], [address] CO2 Normal 21.0-32.0 [facility] Comment on above: Result Comment: Canc elled via OM: Order cancelled - Patient discharged Performed By: #### L 500.2500, L100.0100 ####[facility] [address] [place], [address] CREAT,SERUM Normal 0.55-1.02 [facility] Comment on above: Result Comment: Canc elled via OM: Order cancelled - Patient discharged Performed By: #### L 500.2500, L100.0100 ####[facility] [address] [place], [address] EST GFR Normal >60 [facility] Comment on above: Result Comment: Canc elled via OM: Order cancelled - Patient discharged Performed By: #### L 500.2500, L100.0100 ####[facility] [address] [place], [address] EST GFR - AA Normal >60 [facility] Comment on above: Result Comment: Canc elled via OM: Order cancelled - Patient discharged Performed By: #### L 500.2500, L100.0100 ####[facility] [address] [place], [address] GAP Normal 5-15 [facility] Comment on above: Result Comment: Canc elled via OM: Order cancelled - Patient discharged Performed By: #### L 500.2500, L100.0100 ####[facility] [address] [place], [address] GLU Normal 74-106 [facility] Comment on above: Result Comment: Canc elled via OM: Order cancelled - Patient discharged Performed By: #### L 500.2500, L100.0100 ####[facility] [address] [place], [address] Potassium Normal 3.5-5.1 [facility] Comment on above: Result Comment: Canc elled via OM: Order cancelled - Patient discharged Performed By: #### L 500.2500, L100.0100 ####[facility] [address] [place], [address] Basic Metabolic Profile (BMP) Normal 136-145 [facility] Comment on above: Result Comment: Canc elled via OM: Order cancelled - Patient discharged Performed By: #### L 500.2500, L100.0100 ####[facility] [address] [place], [address] Bedside Glucoseon 04-30-2024 FINGERSTICK GLU 151 mg/dL High 74-106 [facility] Comment on above: Result Comment: DELLA GEMENT OF PATIENT CARE PER NURSING PROTOCOL Performed By: #### L 501.080 ####[facility] [address] [place], [address] FINGERSTICK GLU 226 mg/dL High 74-106 [facility] Comment on above: Result Comment: DELLA GEMENT OF PATIENT CARE PER NURSING PROTOCOL Performed By: #### L 501.080 ####[facility] [address] [place], [address] FINGERSTICK GLU 212 mg/dL High 74-106 [facility] Comment on above: Result Comment: DELLA GEMENT OF PATIENT CARE PER NURSING PROTOCOL Performed By: #### L 501.080 ####[facility] [address] [place], [address] FINGERSTICK GLU 230 mg/dL High 74-106 [facility] Comment on above: Result Comment: DELLA GEMENT OF PATIENT CARE PER NURSING PROTOCOL Performed By: #### L 501.080 ####[facility] [address] [place], [address] FINGERSTICK GLU 252 mg/dL High 74-106 [facility] Comment on above: Result Comment: DELLA COX OF PATIENT CARE PER NURSING PROTOCOL Performed By: #### L 501.080 ####[facility] [address] [place], [address] CBC W/Diff, Automatedon 04-15 PATH REV Reviewed Normal [facility] Comment on above: Result Comment: Leuk ocytosis WITH Neutrophilic left shift.Clinical correlation necessary.Sheldon Baeza M.D. 04/30/24 AMENDED REPORT 04/30/24 1348 PATH REV previously reported as: August Performed By: #### L 501.4020, L300.4310, L500.4050, M200.1000, L300.3900, L100.0100, L503.6005 ####[facility] [address] [place], [address] Absolute Neut Normal 2.0-7.7 [facility] Comment on above: Result Comment: Canc elled via OM: Order cancelled - Patient discharged Performed By: #### L 500.2500, L100.0100 ####[facility] [address] [place], [address] HCT Normal 37-47 [facility] Comment on above: Result Comment: Canc elled via OM: Order cancelled - Patient discharged Performed By: #### L 500.2500, L100.0100 ####[facility] [address] [place], [address] HGB Normal 12.0-15.0 [facility] Comment on above: Result Comment: Canc elled via OM: Order cancelled - Patient discharged Performed By: #### L 500.2500, L100.0100 ####[facility] [address] [place], [address] MCH Normal 27.0-32.0 [facility] Comment on above: Result Comment: Canc elled via OM: Order cancelled - Patient discharged Performed By: #### L 500.2500, L100.0100 ####[facility] [address] [place], [address] MCHC Normal 32-36 [facility] Comment on above: Result Comment: Canc elled via OM: Order cancelled - Patient discharged Performed By: #### L 500.2500, L100.0100 ####[facility] [address] [place], [address] MCV Normal 81-99 [facility] Comment on above: Result Comment: Canc elled via OM: Order cancelled - Patient discharged Performed By: #### L 500.2500, L100.0100 ####[facility] [address] [place], [address] NEUT% Normal 47-70 [facility] Comment on above: Result Comment: Canc elled via OM: Order cancelled - Patient discharged Performed By: #### L 500.2500, L100.0100 ####[facility] [address] [place], [address] PLT Normal 150-450 [facility] Comment on above: Result Comment: Canc elled via OM: Order cancelled - Patient discharged Performed By: #### L 500.2500, L100.0100 ####[facility] [address] [place], [address] RBC Normal 4.2-5.4 [facility] Comment on above: Result Comment: Canc elled via OM: Order cancelled - Patient discharged Performed By: #### L 500.2500, L100.0100 ####[facility] [address] [place], [address] RDW CV Normal 11.6-14.6 [facility] Comment on above: Result Comment: Canc elled via OM: Order cancelled - Patient discharged Performed By: #### L 500.2500, L100.0100 ####[facility] [address] [place], [address] RDW SD Normal 35.1-43.9 [facility] Comment on above: Result Comment: Canc elled via OM: Order cancelled - Patient discharged Performed By: #### L 500.2500, L100.0100 ####[facility] [address] [place], [address] WBC Normal 4.4-11.0 [facility] Comment on above: Result Comment: Canc elled via OM: Order cancelled - Patient discharged Performed By: #### L 500.2500, L100.0100 ####[facility] [address] [place], [address] Chest 1 View (Portable)on Chest 1 View (Portable) Normal [facility] Urine Drug Screen (VISTA)on 04-30-2024 AMPHETAMINES Negative Normal <1000 ng/mL [facility] Comment on above: Performed By: #### L 505.5000 ####[facility] [address] [place], [address] BARBITIURATES Negative Normal < 200 ng/mL [facility] Comment on above: Performed By: #### L 505.5000 ####[facility] [address] [place], [address] BENZODIAZIPINE Negative Normal < 200 ng/mL [facility] Comment on above: Performed By: #### L 505.5000 ####[facility] [address] [place], [address] COCAINE Negative Normal < 300 ng/mL [facility] Comment on above: Performed By: #### L 505.5000 ####[facility] [address] [place], [address] ECSTACY Negative Normal < 500 ng/mL [facility] Comment on above: Performed By: #### L 505.5000 ####[facility] [address] [place], [address] METHADONE Negative Normal < 300 ng/mL [facility] Comment on above: Performed By: #### L 505.5000 ####[facility] [address] [place], [address] OPIATES Negative Normal < 300 ng/mL [facility] Comment on above: Performed By: #### L 505.5000 ####[facility] [address] [place], [address] PCP Negative Normal < 25 ng/mL [facility] Comment on above: Performed By: #### L 505.5000 ####[facility] [address] [place], [address] THC Negative Normal < 50 ng/mL [facility] Comment on above: Performed By: #### L 505.5000 ####[facility] [address] [place], [address] VISTA UDS PH 6 Normal [facility] Comment on above: Performed By: #### L 505.5000 ####[facility] [address] [place], [address] Acetone Serumon 04-29-2024 ACETONE SERUM Negative Normal NEG [facility] Comment on above: Performed By: #### L 501.6900 ####[facility] [address] [place], [address] Activated partial thrombopla stin time (aPTT) in platelet poor plasma by coagulation aOrdered By: Yonas Mccullough on 04-29-2024 aPTT Coag (PPP) [Time] 27.1 s 24.1-36.2 [facility] Albumin to globulin ratioOrd ered By: Yonas Mccullough on 04-29-2024 Albumin/Globulin [Mass ratio] 0.4 {ratio} Low 0.9-2.4 [facility] Comment on above: Order Comment: 'TROP ' Serial specimen #1, #2 or #3: 1 Performed By: #### L 501.4020, L300.4310, L500.4050, M200.1000, L300.3900, L100.0100, L503.6005 ####[facility] [address] [place], [address] Amorphous sediment detection in urine sediment by light microscopyOrdered By: Yonas Mccullough on 04-29-2024 Amorphous sediment LM Ql (Urine sed) 1+ URATE [facility] Basic Metabolic Profile (BMP )on 04-29-2024 BUN/CRE 32.6 RATIO High 10-20 [facility] Comment on above: Performed By: #### L 100.0100, L500.2500 ####[facility] [address] [place], [address] CA,Total 7.9 mg/dL Low 8.5-10.1 [facility] Comment on above: Performed By: #### L 100.0100, L500.2500 ####[facility] [address] [place], [address] Chloride [Moles/Vol] 109 mmol/L High 98-107 [facility] Comment on above: Performed By: #### L 100.0100, L500.2500 ####[facility] [address] [place], [address] Creatinine [Mass/Vol] 0.52 mg/dL Low 0.55-1.02 [facility] Comment on above: Result Comment: The validity of the calculated GFR GFRAA in patients over70 years has not been determined. Clinical correlation isessential. Performed By: #### L 100.0100, L500.2500 ####[facility] [address] [place], [address] ECRCL 131.15 ml/min Normal [facility] Comment on above: Performed By: #### L 100.0100, L500.2500 ####[facility] [address] [place], [address] EST GFR - AA 158 mL/min Normal >60 [facility] Comment on above: Result Comment: Afri can Slovenian GFR Calc Performed By: #### L 100.0100, L500.2500 ####[facility] [address] [place], [address] GAP 6 Normal 5-15 [facility] Comment on above: Performed By: #### L 100.0100, L500.2500 ####[facility] [address] [place], [address] GFR/1.73 sq M.predicted among non-blacks MDRD (S/P/Bld) [Vol rate/Area] 130 mL/min/{1.73_m2} Normal >60 [facility] Comment on above: Result Comment: Non- GFR Calc Performed By: #### L 100.0100, L500.2500 ####[facility] [address] [place], [address] Glucose [Mass/Vol] 299 mg/dL High 74-106 [facility] Comment on above: Result Comment: Gluc ose result greater than or equal to 200 mg/dLsuggests DIABETES MELLITUS per A.D.A. criteria. Performed By: #### L 100.0100, L500.2500 ####[facility] [address] [place], [address] Potassium [Moles/Vol] 3.5 mmol/L Normal 3.5-5.1 [facility] Comment on above: Performed By: #### L 100.0100, L500.2500 ####[facility] [address] [place], [address] Sodium [Moles/Vol] 140 mmol/L Normal 136-145 [facility] Comment on above: Performed By: #### L 100.0100, L500.2500 ####[facility] [address] [place], [address] Bedside Glucoseon 04-29-2024 FINGERSTICK GLU 377 mg/dL High 74-106 [facility] Comment on above: Result Comment: DELLA GEMENT OF PATIENT CARE PER NURSING PROTOCOL Performed By: #### L 501.080 ####[facility] [address] [place], [address] FINGERSTICK GLU 298 mg/dL High 74-106 [facility] Comment on above: Result Comment: DELLA GEMENT OF PATIENT CARE PER NURSING PROTOCOL Performed By: #### L 501.080 ####[facility] [address] [place], [address] FINGERSTICK GLU 261 mg/dL High 74-106 [facility] Comment on above: Result Comment: DELLA GEMENT OF PATIENT CARE PER NURSING PROTOCOL Performed By: #### L 501.080 ####[facility] [address] [place], [address] Bilirubin Test strip Ql (U)O rdered By: Yonas Mccullough on 04-29-2024 Bilirubin Ql (U) Negative Negative [facility] Bilirubin, totalOrdered By: Yonas Mccullough on 04-29-2024 Bilirubin [Mass/Vol] 0.30 mg/dL Normal 0.20-1.00 [facility] Comment on above: For patients on eltr ombopag therapy, use of Dimension [place] TBIL is not recommended. Order Comment: 'TROP ' Serial specimen #1, #2 or #3: 1 Result Comment: For patients on eltrombopag therapy, use of Dimension [place] TBIL is not recommended. Performed By: #### L 501.4020, L300.4310, L500.4050, M200.1000, L300.3900, L100.0100, L503.6005 ####[facility] [address] [place], [address] Blood basophils/100 leukocyt esOrdered By: Yonas Mccullough on 04-29-2024 Basophils/100 WBC (Bld) 1 % 0-1 [facility] Blood cultureOrdered By: Jovita Mccullough on 04-29-2024 Bacteria identified Cx Nom (Bld) No growth in 5 days. [facility] Bacteria identified Cx Nom (Bld) No growth in 5 days. [facility] Brain/Head without Contrasto n 04-29-2024 Brain/Head without Contrast Normal [facility] CBC W/Diff, Automatedon 04-15 PATH REV Reviewed Normal [facility] Comment on above: Result Comment: Neut rophilic leukocytosis with left shift.Normocytic anemia.Clinical correlation necessary.Sheldon Baeza M.D. 04/29/24 AMENDED REPORT 04/29/24 1619 PATH REV previously reported as: August freida Performed By: #### L 100.0100, L500.2500 ####[facility] [address] [place], [place], [address] CT Chest, Abd, Pel w/Contras ton 04-29-2024 CT Chest, Abd, Pel w/Contrast Normal [facility] Comprehensive Metabolic Prof ilon 04-29-2024 ALK P 311 U/L High 45-117 [facility] Comment on above: Order Comment: 'TROP ' Serial specimen #1, #2 or #3: 1 Performed By: #### L 501.4020, L300.4310, L500.4050, M200.1000, L300.3900, L100.0100, L503.6005 ####[facility] [address] [place], [address] BUN/CRE 19.5 RATIO Normal 10-20 [facility] Comment on above: Order Comment: 'TROP ' Serial specimen #1, #2 or #3: 1 Performed By: #### L 501.4020, L300.4310, L500.4050, M200.1000, L300.3900, L100.0100, L503.6005 ####[facility] [address] [place], [address] CA,Total 8.4 mg/dL Low 8.5-10.1 [facility] Comment on above: Order Comment: 'TROP ' Serial specimen #1, #2 or #3: 1 Performed By: #### L 501.4020, L300.4310, L500.4050, M200.1000, L300.3900, L100.0100, L503.6005 ####[facility] [address] [place], [address] Chloride [Moles/Vol] 103 mmol/L Normal 98-107 [facility] Comment on above: Order Comment: 'TROP ' Serial specimen #1, #2 or #3: 1 Performed By: #### L 501.4020, L300.4310, L500.4050, M200.1000, L300.3900, L100.0100, L503.6005 ####[facility] [address] [place], [address] Creatinine [Mass/Vol] 0.87 mg/dL Normal 0.55-1.02 [facility] Comment on above: Order Comment: 'TROP ' Serial specimen #1, #2 or #3: 1 Result Comment: The validity of the calculated GFR GFRAA in patients over70 years has not been determined. Clinical correlation isessential. Performed By: #### L 501.4020, L300.4310, L500.4050, M200.1000, L300.3900, L100.0100, L503.6005 ####[facility] [address] [place], [address] ECRCL 81.18 ml/min Normal [facility] Comment on above: Order Comment: 'TROP ' Serial specimen #1, #2 or #3: 1 Performed By: #### L 501.4020, L300.4310, L500.4050, M200.1000, L300.3900, L100.0100, L503.6005 ####[facility] [address] [place], [address] EST GFR - AA 87 mL/min Normal >60 [facility] Comment on above: Order Comment: 'TROP ' Serial specimen #1, #2 or #3: 1 Result Comment: Afri can Slovenian GFR Calc Performed By: #### L 501.4020, L300.4310, L500.4050, M200.1000, L300.3900, L100.0100, L503.6005 ####[facility] [address] [place], [address] GAP 10 Normal 5-15 [facility] Comment on above: Order Comment: 'TROP ' Serial specimen #1, #2 or #3: 1 Performed By: #### L 501.4020, L300.4310, L500.4050, M200.1000, L300.3900, L100.0100, L503.6005 ####[facility] [address] [place], [address] GFR/1.73 sq M.predicted among non-blacks MDRD (S/P/Bld) [Vol rate/Area] 72 mL/min/{1.73_m2} Normal >60 [facility] Comment on above: Order Comment: 'TROP ' Serial specimen #1, #2 or #3: 1 Result Comment: Non- GFR Calc Performed By: #### L 501.4020, L300.4310, L500.4050, M200.1000, L300.3900, L100.0100, L503.6005 ####[facility] [address] [place], [address] Glucose [Mass/Vol] 400 mg/dL High 74-106 [facility] Comment on above: Order Comment: 'TROP ' Serial specimen #1, #2 or #3: 1 Result Comment: Gluc ose result greater than or equal to 200 mg/dLsuggests DIABETES MELLITUS per A.D.A. criteria. Performed By: #### L 501.4020, L300.4310, L500.4050, M200.1000, L300.3900, L100.0100, L503.6005 ####[facility] [address] [place], [address] Potassium [Moles/Vol] 3.7 mmol/L Normal 3.5-5.1 [facility] Comment on above: Order Comment: 'TROP ' Serial specimen #1, #2 or #3: 1 Performed By: #### L 501.4020, L300.4310, L500.4050, M200.1000, L300.3900, L100.0100, L503.6005 ####[facility] [address] [place], [address] Sodium [Moles/Vol] 138 mmol/L Normal 136-145 [facility] Comment on above: Order Comment: 'TROP ' Serial specimen #1, #2 or #3: 1 Performed By: #### L 501.4020, L300.4310, L500.4050, M200.1000, L300.3900, L100.0100, L503.6005 ####[facility] [address] [place], [address] T PROT 6.5 g/dL Normal 6.4-8.2 [facility] Comment on above: Order Comment: 'TROP ' Serial specimen #1, #2 or #3: 1 Performed By: #### L 501.4020, L300.4310, L500.4050, M200.1000, L300.3900, L100.0100, L503.6005 ####[facility] [address] [place], [address] CO2 [Moles/Vol] 25.0 mmol/L Normal 21.0-32.0 [facility] Comment on above: Order Comment: 'TROP ' Serial specimen #1, #2 or #3: 1 Performed By: #### L 501.4020, L300.4310, L500.4050, M200.1000, L300.3900, L100.0100, L503.6005 ####[facility] [address] [place], [address] Performed By: #### L 100.0100, L500.2500 ####[facility] [address] [place], [address] Urea nitrogen [Mass/Vol] 17 mg/dL Normal 7-18 [facility] Comment on above: Order Comment: 'TROP ' Serial specimen #1, #2 or #3: 1 Performed By: #### L 501.4020, L300.4310, L500.4050, M200.1000, L300.3900, L100.0100, L503.6005 ####[facility] [address] [place], [address] Performed By: #### L 100.0100, L500.2500 ####[facility] [address] [place], [address] Comprehensive Metabolic Prof ilOrdered By: Yonas Mccullough on 04-29-2024 AST [Catalytic activity/Vol] 30 U/L Normal 15-37 [facility] Comment on above: Order Comment: 'TROP ' Serial specimen #1, #2 or #3: 1 Performed By: #### L 501.4020, L300.4310, L500.4050, M200.1000, L300.3900, L100.0100, L503.6005 ####[facility] [address] [place], [address] Discharge Instructionon 04-15 Discharge Instruction Normal [facility] Emergency Department Summary on 04-29-2024 Emergency Department Summary Normal [facility] Femur Min 2 Viewson 04-29-19 25 Femur Min 2 Views Normal [facility] H AND P Exam - Hospitaliston 04-29-2024 H&P Exam - Hospitalist Normal [facility] Influenza virus A and B and SARS-CoV-2 (COVID-19) and Respiratory syncytial virus RNAOrdered By: Yonas Mccullough on 04-29-2024 SARS-CoV-2 (COVID-19) RNA SIRENA+probe Ql (Unsp spec) [facility] International normalized rat io (INR) calculationOrdered By: Yonas Mccullough on 04-29-2024 INR Coag (Bld) [Relative time] 0.9 {INR} [facility] Ketones Test strip Ql (U)Ord ered By: Yonas Mccullough on 04-29-2024 Ketones Ql (U) Negative Negative [facility] Knee 3 Viewson 04-29-2024 Knee 3 Views Normal [facility] L501.4020on 04-29-2024 TROPONIN-I HS 16 pg/mL Normal 3.0-54.0 [facility] Comment on above: Order Comment: 'TROP ' Serial specimen #1, #2 or #3: 1 Result Comment: Jackie hill Note: New Test Units and Gender Specific Reference Ranges. For more information see Policy Stat Procedure [place] High Sensitivity Troponin (TNIH) and attachments. Performed By: #### L 501.4020, L300.4310, L500.4050, M200.1000, L300.3900, L100.0100, L503.6005 ####[facility] [address] [place], [place], [id number] Laboratory - Hematology and Cell countsOrdered By: Yonas Sadia on 04-29-2024 Anisocytosis Ql (Bld) RARE [facility] Lactic Acidon 04-29-2024 Lactate [Moles/Vol] 4.1 mmol/L Invalid Interpretation Code 0.4-1.9 [facility] Comment on above: Order Comment: Comme nts: if result >2, system reflex orders 2nd test @ 4hrsY Result Comment: Crit ical Result(s) Called at: 23:07:45 04/29/2024 by: JENNIFER MARINO. Results read back by same. Performed By: #### L 503.6005, L501.9520 ####[facility] [address] [place], [place], [id number] Lactate [Moles/Vol] 4.0 mmol/L Invalid Interpretation Code 0.4-1.9 [facility] Comment on above: Order Comment: Y Result Comment: Crit ical Result(s) Called at: 21:18:30 04/29/2024 by: JENNIFER TO SOFY JAVIER. Results read back by same. Performed By: #### L 501.4020, L300.4310, L500.4050, M200.1000, L300.3900, L100.0100, L503.6005 ####[facility] [address] [place], [place], [address] Lactic acid measurementOrder ed By: Vicente Rossi on 04-29-2024 Lactate [Moles/Vol] 4.1 mmol/L High 0.4-2.0 [facility] Comment on above: Critical Result(s) C alled at: 23:07:45 04/29/2024 by: WILY SÁNCHEZ TO RENETTA MARINO. Results read back by same. Legionella Antigen Urineon 0 04-29-2024 LEGU Normal [facility] Comment on above: Performed By: #### M 300.4500 ####[facility] [address] [place], [place], [address] M100.678on 04-29-2024 M100.678 Pending SARS-CoV-2 (COVID 19) Negative INFLUENZA A Negative INFLUENZA B Negative RSV PCR Negative Normal [facility] Comment on above: Performed By: #### M 100.678 ####[facility] [address] [place], [place], [address] Microscopic analysis of urin e for red blood cells (RBC)Ordered By: Yonas Mccullough on 04-29-2024 Microscopic analysis of urine for red blood cells (RBC) 0-5 SEEN /hpf 0-5 [facility] Mucus LM Ql (Urine sed)Order ed By: Yonas Mccullough on 04-29-2024 Mucus Ql (Urine sed) 0 SEEN /hpf [facility] Myelocyte %Ordered By: Yonas Mccullough on 04-29-2024 Myelocytes/100 WBC (Bld) 6 % High 0-0 [facility] Nitrite Test strip Ql (U)Ord ered By: Yonas Mccullough on 04-29-2024 Nitrite Ql (U) Negative Negative [facility] No Panel InformationOrdered By: Vicente Rossi on 04-29-2024 Urine Drug Screen Comment [facility] Comment on above: CONFIRMATORY TESTING FOR ALL POSITIVE URINE DRUG SCREENRESULTS WILL ONLY BE SENT OUT UPON PHYSICIAN ORDER. VISTA Urine Drug Screen methods provide only preliminaryanalytical test results. A more specific alternate chemicalmethod must be used in order to obtain a confirmedanalytical result. Gas chromatography/mass spectrometery(GC/MS) is the preferred confirmatory method. Clinicalconsideration and professional judgement should be appliedto any drug of abuse test result, particularly whenpreliminary positive results are used. URINE TCA TESTING MUST BE ORDERED SEPARATELY. USE TESTMNEMONIC: [facility] Ovalocyte detectionOrdered B y: Yonas Mccullough on 04-29-2024 Ovalocytes LM Ql (Bld) RARE [facility] Partial Thromboplast Timeon 04-29-2024 aPTT Coag (Bld) [Time] 27.1 s Normal 24.1-36.2 [facility] Comment on above: Performed By: #### L 501.4020, L300.4310, L500.4050, M200.1000, L300.3900, L100.0100, L503.6005 ####[facility] [address] [place], [place], [id number] Protein Test strip Ql (U)Ord ered By: Yonas Mccullough on 04-29-2024 Protein Ql (U) 15 mg/dl High Negative [facility] Prothrombin Time w/INRon INR Coag (PPP) [Relative time] 0.9 {INR} Normal [facility] Comment on above: Performed By: #### L 501.4020, L300.4310, L500.4050, M200.1000, L300.3900, L100.0100, L503.6005 ####[facility] [address] [place], [place], [id number] PT Coag (PPP) [Time] 12.8 s Normal 11.7-14.9 [facility] Comment on above: Performed By: #### L 501.4020, L300.4310, L500.4050, M200.1000, L300.3900, L100.0100, L503.6005 ####[facility] [address] [place], [place], [address] Prothrombin timeOrdered By: Yonas Mccullough on 04-29-2024 PT Coag (PPP) [Time] 12.8 s 11.7-14.9 [facility] Quantitative urine opiates m easurementOrdered By: Vicente Rossi on 04-29-2024 Opiates Ql (U) Negative < 300 ng/mL [facility] Serum acetone measurementOrd ered By: Vicente Rossi on 04-29-2024 Acetone [Mass/Vol] Negative NEG [facility] Serum globulin measurementOr dered By: Yonas Mccullough on 04-29-2024 Globulin (S) [Mass/Vol] 4.5 g/dL High 2.2-4.2 [facility] Comment on above: Order Comment: 'TROP ' Serial specimen #1, #2 or #3: 1 Performed By: #### L 501.4020, L300.4310, L500.4050, M200.1000, L300.3900, L100.0100, L503.6005 ####[facility] [address] [place], [address] Serum or plasma alanine ortiz otransferase (ALT) measurementOrdered By: Yonas Mccullough on 04-29-2024 ALT [Catalytic activity/Vol] 30 U/L Normal 13-56 [facility] Comment on above: Order Comment: 'TROP ' Serial specimen #1, #2 or #3: 1 Performed By: #### L 501.4020, L300.4310, L500.4050, M200.1000, L300.3900, L100.0100, L503.6005 ####[facility] [address] [place], [address] Serum or plasma albumin anna urement (mass/volume)Ordered By: Yonas Mccullough on 04-29-2024 Albumin [Mass/Vol] 2.0 g/dL Low 3.2-5.0 [facility] Comment on above: Order Comment: 'TROP ' Serial specimen #1, #2 or #3: 1 Performed By: #### L 501.4020, L300.4310, L500.4050, M200.1000, L300.3900, L100.0100, L503.6005 ####[facility] [address] [place], [address] Serum or plasma alkaline zeke sphatase measurementOrdered By: Yonas Mccullough on 04-29-2024 ALP [Catalytic activity/Vol] 311 U/L High 45-117 [facility] Serum or plasma thyroid stim ulating hormone (TSH) measurement (units/volume)Ordered By: Vicente Rossi on 04-29-2024 TSH Qn 1.540 uIU/mL 0.358-3.740 [facility] Spine Cervical without Contr ason 04-29-2024 Spine Cervical without Contras Normal [facility] Squamous epithelial cells de tection in urine sediment by light microscopyOrdered By: Yonas Mccullough on 04-29-2024 Epithelial cells.squamous LM Ql (Urine sed) 5-10 SEEN /hpf 5-10 [facility] Strep pneumoniae Antig(UR,CS F)on 04-29-2024 STPAG Normal [facility] Comment on above: Performed By: #### M 300.6030 ####[facility] [address] [place], [address] Thyroid Stim Hormone (TSH)on 04-29-2024 TSH 1.540 uIU/mL Normal 0.358-3.740 [facility] Comment on above: Performed By: #### L 503.6005, L501.9520 ####[facility] [address] [place], [address] Total proteinOrdered By: Jovita Mccullough on 04-29-2024 Protein [Mass/Vol] 6.5 g/dL 6.4-8.2 [facility] Toxic leukocyte granulation detectionOrdered By: Yonas Mccullough on 04-29-2024 Toxic granules LM Ql (Bld) RARE [facility] Troponin IOrdered By: Yonas Mccullough on 04-29-2024 Troponin I 16 pg/mL 3.0-54.0 [facility] Comment on above: Please Note: New Leeann t Units and Gender Specific Reference Ranges. For more information see Policy Stat Procedure [place] High Sensitivity Troponin (TNIH) and attachments. Urinalysis, Completeon 04-29 AMORPHOUS 1+ URATE Normal [facility] Comment on above: Order Comment: CLEAN CATCH Performed By: #### M 100.2200, L400.0001 ####[facility] [address] [place], [address] EPI,SQUAMOUS 5-10 SEEN Normal 5-10 [facility] Comment on above: Order Comment: CLEAN CATCH Performed By: #### M 100.2200, L400.0001 ####[facility] [address] [place], [address] RBC 0-5 SEEN Normal 0-5 [facility] Comment on above: Order Comment: CLEAN CATCH Performed By: #### M 100.2200, L400.0001 ####[facility] [address] [place], [address] BACTERIA 0 SEEN Normal None Seen [facility] Comment on above: Order Comment: CLEAN CATCH Performed By: #### M 100.2200, L400.0001 ####[facility] [address] [place], [address] Mucus Ql (Urine sed) 0 SEEN Normal [facility] Comment on above: Order Comment: CLEAN CATCH Performed By: #### M 100.2200, L400.0001 ####[facility] [address] [place], [address] WBC 0 SEEN Normal 0-5 [facility] Comment on above: Order Comment: CLEAN CATCH Performed By: #### M 100.2200, L400.0001 ####[facility] [address] [place], [place], [id number] Urine Legionella pneumophila antigen detectionOrdered By: Vicente Rossi on 04-29-2024 L. pneumophila Ag Ql (U) [facility] Urine amphetamine measuremen tOrdered By: Vicente Rossi on 04-29-2024 Amphetamines Ql (U) Negative <1000 ng/mL [facility] Urine benzodiazepine levelOr dered By: Vicente Rossi on 04-29-2024 Benzodiazepines Ql (U) Negative < 200 ng/mL [facility] Urine clarityOrdered By: Jovita Mccullough on 04-29-2024 Clarity (U) Clear Clear [facility] Urine cocaine levelOrdered B y: Vicente Rossi on 04-29-2024 Cocaine Ql (U) Negative < 300 ng/mL [facility] Urine color determinationOrd ered By: Yonas Mccullough on 04-29-2024 Color (U) Yellow Yellow [facility] Urine cultureOrdered By: Jovita Mccullough on 04-29-2024 Bacteria identified Cx Nom (U) Yeast, not Nirmala albicans Abnormal [facility] Urine iktyk-2-wxtfuupqelkfmz abinol (THC) measurementOrdered By: Vicente Rossi on 04-29-2024 Cannabinoids Screen Ql (U) Negative < 50 ng/mL [facility] Urine glucose detectionOrder ed By: Yonas Mccullough on 04-29-2024 Glucose Ql (U) 1000 mg/dl High Normal [facility] Urine leukocyte esterase det ection by dipstickOrdered By: Yonas Mccullough on 04-29-2024 Leukocyte esterase Test strip Ql (U) Negative Negative [facility] Urine pHOrdered By: Yonas oakley on 04-29-2024 pH (U) 6.5 [pH] 5.0 - 8.0 [facility] Urine phencyclidine (PCP) de tectionOrdered By: Vicente Rossi on 04-29-2024 Phencyclidine Ql (U) Negative < 25 ng/mL [facility] Urine sediment bacteria coun t by microscopy (number/high power field)Ordered By: Yonas Mccullough on 04-29-2024 Bacteria LM.HPF (Urine sed) [#/Area] 0 /[HPF] None Seen [facility] Urine specific gravity measu rementOrdered By: Yonas Mccullough on 04-29-2024 Specific gravity (U) [Rel density] 1.010 1.002-1.030 [facility] Urine urobilinogen measureme ntOrdered By: Yonas Mccullough on 04-29-2024 Urobilinogen Ql (U) Normal mg/dl Normal [facility] Vancomycin, Trough Levelon 0 04-29-2024 VANCO, TROUGH 20.7 ug/mL High 5.0-15.0 [facility] Comment on above: Order Comment: Comme nts: Trough to be drawn 30 mins prior to scheduled [id number] Result Comment: VANC OMYCIN STANDARED DRUG THERAPY TROUGH LEVEL: 5.0 - 15.0 mg/LVANCOMYCIN HIGH INTENSITY THERAPY TROUGH LEVEL: 15.0 - 20.0 mg/LHigh Intensity therapy recommended for serious lifethreatening infections include:- Gvergsrppv-Ypdejhnoiqzy-Agdcwmjmq (Ventilator/Healtcare Associated)-SepsisPLEASE CONTACT PHARMACY SERVICES (#0337) FOR INTERPRETATIONOF RESULTS. Performed By: #### L 501.8820 ####[facility] [address] [facility] [address] White blood cell countOrdere d By: Yonas Mccullough on 04-29-2024 White blood cell count 0 SEEN /hpf 0-5 [facility] Basic Metabolic Profile (BMP )on 04-28-2024 BUN/CRE 37.9 RATIO High 10-20 [facility] Comment on above: Performed By: #### L 100.0100, L500.2500 ####[facility] [address] [facility] [address] [place],Total 8.0 mg/dL Low 8.5-10.1 [facility] Comment on above: Performed By: #### L 100.0100, L500.2500 ####[facility] [address] [facility] [address] Chloride [Moles/Vol] 109 mmol/L High 98-107 [facility] Comment on above: Performed By: #### L 100.0100, L500.2500 ####[facility] [address] [place], [address] CO2 [Moles/Vol] 27.0 mmol/L Normal 21.0-32.0 [facility] Comment on above: Performed By: #### L 100.0100, L500.2500 ####[facility] [address] [place], [address] Creatinine [Mass/Vol] 0.50 mg/dL Low 0.55-1.02 [facility] Comment on above: Result Comment: The validity of the calculated GFR GFRAA in patients over70 years has not been determined. Clinical correlation isessential. Performed By: #### L 100.0100, L500.2500 ####[facility] [address] [place], [address] ECRCL 134.84 ml/min Normal [facility] Comment on above: Performed By: #### L 100.0100, L500.2500 ####[facility] [address] [place], [address] EST GFR - AA 165 mL/min Normal >60 [facility] Comment on above: Result Comment: Afri can Slovenian GFR Calc Performed By: #### L 100.0100, L500.2500 ####[facility] [address] [place], [address] GAP 2 Low 5-15 [facility] Comment on above: Performed By: #### L 100.0100, L500.2500 ####[facility] [address] [place], [address] GFR/1.73 sq M.predicted among non-blacks MDRD (S/P/Bld) [Vol rate/Area] 137 mL/min/{1.73_m2} Normal >60 [facility] Comment on above: Result Comment: Non- GFR Calc Performed By: #### L 100.0100, L500.2500 ####[facility] [address] [place], [address] Glucose [Mass/Vol] 236 mg/dL High 74-106 [facility] Comment on above: Result Comment: Gluc ose result greater than or equal to 200 mg/dLsuggests DIABETES MELLITUS per A.D.A. criteria. Performed By: #### L 100.0100, L500.2500 ####[facility] [address] [place], [address] Potassium [Moles/Vol] 3.1 mmol/L Low 3.5-5.1 [facility] Comment on above: Performed By: #### L 100.0100, L500.2500 ####[facility] [address] [place], [address] Sodium [Moles/Vol] 138 mmol/L Normal 136-145 [facility] Comment on above: Performed By: #### L 100.0100, L500.2500 ####[facility] [address] [place], [address] Urea nitrogen [Mass/Vol] 19 mg/dL High 7-18 [facility] Comment on above: Performed By: #### L 100.0100, L500.2500 ####[facility] [address] [place], [address] Bedside Glucoseon 04-28-2024 FINGERSTICK GLU 291 mg/dL High 74-106 [facility] Comment on above: Result Comment: DELLA COX OF PATIENT CARE PER NURSING PROTOCOL Performed By: #### L 501.080 ####[facility] [address] [place], [address] FINGERSTICK GLU 229 mg/dL High 74-106 [facility] Comment on above: Result Comment: DELLA GEMENT OF PATIENT CARE PER NURSING PROTOCOL Performed By: #### L 501.080 ####[facility] [address] [place], [address] FINGERSTICK GLU 157 mg/dL High 74-106 [facility] Comment on above: Result Comment: DELLA GEMENT OF PATIENT CARE PER NURSING PROTOCOL Performed By: #### L 501.080 ####[facility] [address] [place], [address] FINGERSTICK GLU 177 mg/dL High 74-106 [facility] Comment on above: Result Comment: DELLA GEMENT OF PATIENT CARE PER NURSING PROTOCOL Performed By: #### L 501.080 ####[facility] [address] [place], [address] CBC W/Diff, Automatedon 04-15 PATH REV Reviewed Normal [facility] Comment on above: Result Comment: Leuk ocytosis WITH Neutrophilic left shift.Normocytic anemia.Clinical correlation necessary.Sheldon Baeza M.D. 04/28/24 AMENDED REPORT 04/28/24 1153 PATH REV previously reported as: August Performed By: #### L 100.0100, L500.2500 ####[facility] [address] [place], [address] Basic Metabolic Profile (BMP )on 04-27-2024 BUN/CRE 36.0 RATIO High 10-20 [facility] Comment on above: Performed By: #### L 100.0100, L500.2500 ####[facility] [address] [place], [address] [place],Total 7.9 mg/dL Low 8.5-10.1 [facility] Comment on above: Performed By: #### L 100.0100, L500.2500 ####[facility] [address] [place], [address] Chloride [Moles/Vol] 112 mmol/L High 98-107 [facility] Comment on above: Performed By: #### L 100.0100, L500.2500 ####[facility] [address] [place], [address] CO2 [Moles/Vol] 23.0 mmol/L Normal 21.0-32.0 [facility] Comment on above: Performed By: #### L 100.0100, L500.2500 ####[facility] [address] [place], [address] Creatinine [Mass/Vol] 0.47 mg/dL Low 0.55-1.02 [facility] Comment on above: Result Comment: The validity of the calculated GFR GFRAA in patients over70 years has not been determined. Clinical correlation isessential. Performed By: #### L 100.0100, L500.2500 ####[facility] [address] [place], [address] ECRCL 139.86 ml/min Normal [facility] Comment on above: Performed By: #### L 100.0100, L500.2500 ####[facility] [address] [place], [address] EST GFR - AA 177 mL/min Normal >60 [facility] Comment on above: Result Comment: Afri can Slovenian GFR Calc Performed By: #### L 100.0100, L500.2500 ####[facility] [address] [place], [address] GAP 4 Low 5-15 [facility] Comment on above: Performed By: #### L 100.0100, L500.2500 ####[facility] [address] [place], [address] GFR/1.73 sq M.predicted among non-blacks MDRD (S/P/Bld) [Vol rate/Area] 146 mL/min/{1.73_m2} Normal >60 [facility] Comment on above: Result Comment: Non- GFR Calc Performed By: #### L 100.0100, L500.2500 ####[facility] [address] [place], [address] Glucose [Mass/Vol] 374 mg/dL High 74-106 [facility] Comment on above: Result Comment: Gluc ose result greater than or equal to 200 mg/dLsuggests DIABETES MELLITUS per A.D.A. criteria. Performed By: #### L 100.0100, L500.2500 ####[facility] [address] [place], [address] Potassium [Moles/Vol] 3.9 mmol/L Normal 3.5-5.1 [facility] Comment on above: Performed By: #### L 100.0100, L500.2500 ####[facility] [address] [place], [address] Sodium [Moles/Vol] 139 mmol/L Normal 136-145 [facility] Comment on above: Performed By: #### L 100.0100, L500.2500 ####[facility] [address] [place], [address] Urea nitrogen [Mass/Vol] 17 mg/dL Normal 7-18 [facility] Comment on above: Performed By: #### L 100.0100, L500.2500 ####[facility] [address] [place], [address] Bedside Glucoseon 04-27-2024 FINGERSTICK GLU 358 mg/dL High 74-106 [facility] Comment on above: Result Comment: DELLA GEMENT OF PATIENT CARE PER NURSING PROTOCOL Performed By: #### L 501.080 ####[facility] [address] [place], [address] FINGERSTICK GLU 429 mg/dL High 74-106 [facility] Comment on above: Result Comment: DELLA GEMENT OF PATIENT CARE PER NURSING PROTOCOL Performed By: #### L 501.080 ####[facility] [address] [place], [address] FINGERSTICK GLU 356 mg/dL High 74-106 [facility] Comment on above: Result Comment: DELLA GEMENT OF PATIENT CARE PER NURSING PROTOCOL Performed By: #### L 501.080 ####[facility] [address] [place], [address] FINGERSTICK GLU 340 mg/dL High 74-106 [facility] Comment on above: Result Comment: DELLA GEMENT OF PATIENT CARE PER NURSING PROTOCOL Performed By: #### L 501.080 ####[facility] [address] [place], [address] CBC W/Diff, Automatedon 04-15 PATH REV Reviewed Normal [facility] Comment on above: Result Comment: Neut rophilic leukocytosis with left shift.Clinical correlation necessary.Sheldon Baeza M.D. 04/27/24 AMENDED REPORT 04/27/24 1340 PATH REV previously reported as: May foll Performed By: #### L 100.0100, L500.2500 ####[facility] [address] [place], [address] PATH REV Reviewed Normal [facility] Comment on above: Result Comment: Neut rophilic leukocytosis.Normocytic anemia.MILD Thrombocytopenia.Clinical correlation necessary.Sheldon Baeza M.D. 04/27/24 AMENDED REPORT 04/27/24 1334 PATH REV previously reported as: May foll Performed By: #### L 500.2500, L100.0100 ####[facility] [address] [place], [address] PATH REV Reviewed Normal [facility] Comment on above: Result Comment: Neut rophilic leukocytosis.Clinical correlation necessary.Sheldon Baeza M.D. 04/27/24 AMENDED REPORT 04/27/24 0941 PATH REV previously reported as: May foll Performed By: #### L 100.0100, L501.2300, L501.9985 ####[facility] [address] [place], [place], [address] PATH REV Reviewed Normal [facility] Comment on above: Result Comment: Neut rophilic leukocytosis.Clinical correlation necessary.Sheldon Baeza M.D. 04/27/24 AMENDED REPORT 04/27/24 0940 PATH REV previously reported as: August Performed By: #### L 500.2500, L501.6900, L100.0100 ####[facility] [address] [place], [address] Chest 1 View (Portable)on Chest 1 View (Portable) Normal [facility] Vancomycin, Trough Levelon 0 04-27-2024 VANCO, TROUGH 18.3 ug/mL High 5.0-15.0 [facility] Comment on above: Order Comment: 2000 Result Comment: VANC OMYCIN STANDARED DRUG THERAPY TROUGH LEVEL: 5.0 - 15.0 mg/LVANCOMYCIN HIGH INTENSITY THERAPY TROUGH LEVEL: 15.0 - 20.0 mg/LHigh Intensity therapy recommended for serious lifethreatening infections include:- Iidnmszolx-Ywuygwicjwzw-Tbgyrlndf (Ventilator/Healtcare Associated)-SepsisPLEASE CONTACT PHARMACY SERVICES (#7452) FOR INTERPRETATIONOF RESULTS. Performed By: #### L 501.8820 ####[facility] [address] [place], [address] Basic Metabolic Profile (BMP )on 04-26-2024 BUN/CRE 35.7 RATIO High 10-20 [facility] Comment on above: Performed By: #### L 500.2500, L100.0100 ####[facility] [address] [place], [address] [place],Total 7.8 mg/dL Low 8.5-10.1 [facility] Comment on above: Performed By: #### L 500.2500, L100.0100 ####[facility] [address] [place], [address] Chloride [Moles/Vol] 114 mmol/L High 98-107 [facility] Comment on above: Performed By: #### L 500.2500, L100.0100 ####[facility] [address] [place], [address] CO2 [Moles/Vol] 23.0 mmol/L Normal 21.0-32.0 [facility] Comment on above: Performed By: #### L 500.2500, L100.0100 ####[facility] [address] [place], [address] Creatinine [Mass/Vol] 0.48 mg/dL Low 0.55-1.02 [facility] Comment on above: Result Comment: The validity of the calculated GFR GFRAA in patients over70 years has not been determined. Clinical correlation isessential. Performed By: #### L 500.2500, L100.0100 ####[facility] [address] [place], [address] ECRCL 136.86 ml/min Normal [facility] Comment on above: Performed By: #### L 500.2500, L100.0100 ####[facility] [address] [place], [address] EST GFR - AA 175 mL/min Normal >60 [facility] Comment on above: Result Comment: Afri can Slovenian GFR Calc Performed By: #### L 500.2500, L100.0100 ####[facility] [address] [place], [address] GAP 3 Low 5-15 [facility] Comment on above: Performed By: #### L 500.2500, L100.0100 ####[facility] [address] [place], [address] GFR/1.73 sq M.predicted among non-blacks MDRD (S/P/Bld) [Vol rate/Area] 145 mL/min/{1.73_m2} Normal >60 [facility] Comment on above: Result Comment: Non- GFR Calc Performed By: #### L 500.2500, L100.0100 ####[facility] [address] [place], [address] Glucose [Mass/Vol] 71 mg/dL Low 74-106 [facility] Comment on above: Performed By: #### L 500.2500, L100.0100 ####[facility] [address] [place], [address] Potassium [Moles/Vol] 3.0 mmol/L Low 3.5-5.1 [facility] Comment on above: Performed By: #### L 500.2500, L100.0100 ####[facility] [address] [place], [address] Sodium [Moles/Vol] 140 mmol/L Normal 136-145 [facility] Comment on above: Performed By: #### L 500.2500, L100.0100 ####[facility] [address] [place], [address] Urea nitrogen [Mass/Vol] 17 mg/dL Normal 7-18 [facility] Comment on above: Performed By: #### L 500.2500, L100.0100 ####[facility] [address] [place], [address] Bedside Glucoseon 04-26-2024 FINGERSTICK GLU 342 mg/dL High 74-106 [facility] Comment on above: Result Comment: DELLA GEMENT OF PATIENT CARE PER NURSING PROTOCOL Performed By: #### L 501.080 ####[facility] [address] [place], [address] FINGERSTICK GLU 156 mg/dL High 74-106 [facility] Comment on above: Result Comment: DELLA GEMENT OF PATIENT CARE PER NURSING PROTOCOL Performed By: #### L 501.080 ####[facility] [address] [place], [address] FINGERSTICK GLU 164 mg/dL High 74-106 [facility] Comment on above: Result Comment: DELLA GEMENT OF PATIENT CARE PER NURSING PROTOCOL Performed By: #### L 501.080 ####[facility] [address] [place], [address] FINGERSTICK GLU 59 mg/dL Low 74-106 [facility] Comment on above: Result Comment: Dr Nesha mendoza FollowedSnack GivenMANAGEMENT OF PATIENT CARE PER NURSING PROTOCOL Performed By: #### L 501.080 ####[facility] [address] [place], [address] FINGERSTICK GLU 112 mg/dL High 74-106 [facility] Comment on above: Result Comment: DELLA GEMENT OF PATIENT CARE PER NURSING PROTOCOL Performed By: #### L 501.080 ####[facility] [address] [place], [address] FINGERSTICK GLU 58 mg/dL Low 74-106 [facility] Comment on above: Result Comment: DELLA GEMENT OF PATIENT CARE PER NURSING PROTOCOL Performed By: #### L 501.080 ####[facility] [address] [place], [address] CPK Total, Creatine Kinaseon 04-26-2024 CPK TOTAL 80 U/L Normal 26-192 [facility] Comment on above: Order Comment: Comme nts: Add onto previous labs if possibleAdd onto previous labs if possible Performed By: #### L 503.6030, L501.3620, L504.2610, L500.3400, L501.5200 ####[facility] [address] [place], [address] CT Chest, Abd, Pel w/Contras ton 04-26-2024 CT Chest, Abd, Pel w/Contrast Normal [facility] Chest 1 View (Portable)on Chest 1 View (Portable) Normal [facility] Culture, Blood (WB)on 2024 CUB Normal [facility] Comment on above: Performed By: #### M 200.1000, L503.6005, L501.2300 ####[facility] [address] [place], [address] Iron+Iron Binding Capacityon 04-26-2024 Iron [Mass/Vol] 19 ug/dL Low 50-170 [facility] Comment on above: Order Comment: Comme nts: Add onto previous labs if possibleAdd onto previous labs if possible Performed By: #### L 503.6030, L501.3620, L504.2610, L500.3400, L501.5200 ####[facility] [address] [place], [address] IRON SATURATION 11.8 Low 15.0-55.0 [facility] Comment on above: Order Comment: Comme nts: Add onto previous labs if possibleAdd onto previous labs if possible Performed By: #### L 503.6030, L501.3620, L504.2610, L500.3400, L501.5200 ####[facility] [address] [place], [address] TIBC 161 ug/dL Low 250-450 [facility] Comment on above: Order Comment: Comme nts: Add onto previous labs if possibleAdd onto previous labs if possible Performed By: #### L 503.6030, L501.3620, L504.2610, L500.3400, L501.5200 ####[facility] [address] [place], [address] LDHon 04-26-2024 LDH 227 U/L Normal 84-246 [facility] Comment on above: Order Comment: Comme nts: Add onto previous labs if possibleAdd onto previous labs if possible Performed By: #### L 503.6030, L501.3620, L504.2610, L500.3400, L501.5200 ####[facility] [address] [place], [address] Liver Profileon 04-26-2024 Albumin [Mass/Vol] 1.4 g/dL Low 3.2-5.0 [facility] Comment on above: Order Comment: Comme nts: Add onto previous labs if possibleAdd onto previous labs if possible Performed By: #### L 503.6030, L501.3620, L504.2610, L500.3400, L501.5200 ####[facility] [address] [place], [address] ALK P 103 U/L Normal 45-117 [facility] Comment on above: Order Comment: Comme nts: Add onto previous labs if possibleAdd onto previous labs if possible Performed By: #### L 503.6030, L501.3620, L504.2610, L500.3400, L501.5200 ####[facility] [address] [place], [address] ALT [Catalytic activity/Vol] 22 U/L Normal 13-56 [facility] Comment on above: Order Comment: Comme nts: Add onto previous labs if possibleAdd onto previous labs if possible Performed By: #### L 503.6030, L501.3620, L504.2610, L500.3400, L501.5200 ####[facility] [address] [place], [address] AST [Catalytic activity/Vol] 20 U/L Normal 15-37 [facility] Comment on above: Order Comment: Comme nts: Add onto previous labs if possibleAdd onto previous labs if possible Performed By: #### L 503.6030, L501.3620, L504.2610, L500.3400, L501.5200 ####[facility] [address] [place], [address] Bilirubin [Mass/Vol] 0.60 mg/dL Normal 0.20-1.00 [facility] Comment on above: Order Comment: Comme nts: Add onto previous labs if possibleAdd onto previous labs if possible Result Comment: For patients on eltrombopag therapy, use of Dimension [place] TBIL is not recommended. Performed By: #### L 503.6030, L501.3620, L504.2610, L500.3400, L501.5200 ####[facility] [address] [place], [address] Bilirubin.direct [Mass/Vol] 0.32 mg/dL High 0.00-0.30 [facility] Comment on above: Order Comment: Comme nts: Add onto previous labs if possibleAdd onto previous labs if possible Performed By: #### L 503.6030, L501.3620, L504.2610, L500.3400, L501.5200 ####[facility] [address] [place], [address] Globulin (S) [Mass/Vol] 3.1 g/dL Normal 2.2-4.2 [facility] Comment on above: Order Comment: Comme nts: Add onto previous labs if possibleAdd onto previous labs if possible Performed By: #### L 503.6030, L501.3620, L504.2610, L500.3400, L501.5200 ####[facility] [address] [place], [address] T PROT 4.5 g/dL Low 6.4-8.2 [facility] Comment on above: Order Comment: Comme nts: Add onto previous labs if possibleAdd onto previous labs if possible Performed By: #### L 503.6030, L501.3620, L504.2610, L500.3400, L501.5200 ####[facility] [address] [place], [address] Magnesiumon 04-26-2024 Magnesium [Mass/Vol] 1.9 mg/dL Normal 1.6-2.6 [facility] Comment on above: Order Comment: Comme nts: Add onto previous labs if possibleAdd onto previous labs if possible Performed By: #### L 503.6030, L501.3620, L504.2610, L500.3400, L501.5200 ####[facility] [address] [place], [address] T4 Free Directon 04-26-2024 T4 FREE DIRECT 1.08 ng/dL Normal 0.76-1.46 [facility] Comment on above: Order Comment: Comme nts: Add onto previous labs if possibleAdd onto previous labs if possible Performed By: #### L 506.0400, L501.9520 ####[facility] [address] [place], [address] Thyroid Stim Hormone (TSH)on 04-26-2024 TSH 0.703 uIU/mL Normal 0.358-3.740 [facility] Comment on above: Order Comment: Comme nts: Add onto previous labs if possibleAdd onto previous labs if possible Performed By: #### L 506.0400, L501.9520 ####[facility] [address] [place], [address] Basic Metabolic Profile (BMP )on 04-25-2024 BUN/CRE 38.8 RATIO High 10-20 [facility] Comment on above: Performed By: #### L 501.2300, L500.2500 ####[facility] [address] [place], [address] CA,Total 7.3 mg/dL Low 8.5-10.1 [facility] Comment on above: Performed By: #### L 501.2300, L500.2500 ####[facility] [address] [place], [address] Chloride [Moles/Vol] 114 mmol/L High 98-107 [facility] Comment on above: Performed By: #### L 501.2300, L500.2500 ####[facility] [address] [place], [address] CO2 [Moles/Vol] 21.0 mmol/L Normal 21.0-32.0 [facility] Comment on above: Performed By: #### L 501.2300, L500.2500 ####[facility] [address] [place], [address] Creatinine [Mass/Vol] 0.54 mg/dL Low 0.55-1.02 [facility] Comment on above: Result Comment: The validity of the calculated GFR GFRAA in patients over70 years has not been determined. Clinical correlation isessential. Performed By: #### L 501.2300, L500.2500 ####[facility] [address] [place], [address] ECRCL 122.57 ml/min Normal [facility] Comment on above: Performed By: #### L 501.2300, L500.2500 ####[facility] [address] [place], [address] EST GFR - AA 151 mL/min Normal >60 [facility] Comment on above: Result Comment: Afri can Slovenian GFR Calc Performed By: #### L 501.2300, L500.2500 ####[facility] [address] [place], [address] GAP 5 Normal 5-15 [facility] Comment on above: Performed By: #### L 501.2300, L500.2500 ####[facility] [address] [place], [address] GFR/1.73 sq M.predicted among non-blacks MDRD (S/P/Bld) [Vol rate/Area] 125 mL/min/{1.73_m2} Normal >60 [facility] Comment on above: Result Comment: Non- GFR Calc Performed By: #### L 501.2300, L500.2500 ####[facility] [address] [place], [address] Glucose [Mass/Vol] 237 mg/dL High 74-106 [facility] Comment on above: Result Comment: Gluc ose result greater than or equal to 200 mg/dLsuggests DIABETES MELLITUS per A.D.A. criteria. Performed By: #### L 501.2300, L500.2500 ####[facility] [address] [place], [address] Potassium [Moles/Vol] 3.7 mmol/L Normal 3.5-5.1 [facility] Comment on above: Performed By: #### L 501.2300, L500.2500 ####[facility] [address] [place], [address] Sodium [Moles/Vol] 139 mmol/L Normal 136-145 [facility] Comment on above: Performed By: #### L 501.2300, L500.2500 ####[facility] [address] [place], [address] Urea nitrogen [Mass/Vol] 21 mg/dL High 7-18 [facility] Comment on above: Performed By: #### L 501.2300, L500.2500 ####[facility] [address] [place], [address] BUN/CRE 42.1 RATIO High 10-20 [facility] Comment on above: Performed By: #### L 501.2300, L500.2500, L100.0100, L501.5200 ####[facility] [address] [place], [address] CA,Total 7.8 mg/dL Low 8.5-10.1 [facility] Comment on above: Performed By: #### L 501.2300, L500.2500, L100.0100, L501.5200 ####[facility] [address] [place], [address] Chloride [Moles/Vol] 113 mmol/L High 98-107 [facility] Comment on above: Performed By: #### L 501.2300, L500.2500, L100.0100, L501.5200 ####[facility] [address] [place], [address] CO2 [Moles/Vol] 19.0 mmol/L Low 21.0-32.0 [facility] Comment on above: Performed By: #### L 501.2300, L500.2500, L100.0100, L501.5200 ####[facility] [address] [place], [address] Creatinine [Mass/Vol] 0.50 mg/dL Low 0.55-1.02 [facility] Comment on above: Result Comment: The validity of the calculated GFR GFRAA in patients over70 years has not been determined. Clinical correlation isessential. Performed By: #### L 501.2300, L500.2500, L100.0100, L501.5200 ####[facility] [address] [place], [address] ECRCL 126.70 ml/min Normal [facility] Comment on above: Performed By: #### L 501.2300, L500.2500, L100.0100, L501.5200 ####[facility] [address] [place], [address] EST GFR - AA 166 mL/min Normal >60 [facility] Comment on above: Result Comment: Afri can Slovenian GFR Calc Performed By: #### L 501.2300, L500.2500, L100.0100, L501.5200 ####[facility] [address] [place], [address] GAP 7 Normal 5-15 [facility] Comment on above: Performed By: #### L 501.2300, L500.2500, L100.0100, L501.5200 ####[facility] [address] [place], [address] GFR/1.73 sq M.predicted among non-blacks MDRD (S/P/Bld) [Vol rate/Area] 137 mL/min/{1.73_m2} Normal >60 [facility] Comment on above: Result Comment: Non- GFR Calc Performed By: #### L 501.2300, L500.2500, L100.0100, L501.5200 ####[facility] [address] [place], [address] Glucose [Mass/Vol] 244 mg/dL High 74-106 [facility] Comment on above: Result Comment: Gluc ose result greater than or equal to 200 mg/dLsuggests DIABETES MELLITUS per A.D.A. criteria. Performed By: #### L 501.2300, L500.2500, L100.0100, L501.5200 ####[facility] [address] [place], [address] Potassium [Moles/Vol] 3.0 mmol/L Low 3.5-5.1 [facility] Comment on above: Performed By: #### L 501.2300, L500.2500, L100.0100, L501.5200 ####[facility] [address] [place], [address] Sodium [Moles/Vol] 138 mmol/L Normal 136-145 [facility] Comment on above: Performed By: #### L 501.2300, L500.2500, L100.0100, L501.5200 ####[facility] [address] [place], [address] Urea nitrogen [Mass/Vol] 21 mg/dL High 7-18 [facility] Comment on above: Performed By: #### L 501.2300, L500.2500, L100.0100, L501.5200 ####[facility] [address] [place], [address] Bedside Glucoseon 04-25-2024 FINGERSTICK GLU 197 mg/dL High 74-106 [facility] Comment on above: Result Comment: DELLA GEMENT OF PATIENT CARE PER NURSING PROTOCOL Performed By: #### L 501.080 ####[facility] [address] [place], [address] FINGERSTICK GLU 227 mg/dL High 74-106 [facility] Comment on above: Result Comment: DELLA GEMENT OF PATIENT CARE PER NURSING PROTOCOL Performed By: #### L 501.080 ####[facility] [address] [place], [address] FINGERSTICK GLU 194 mg/dL [facility]106 [facility] Comment on above: Result Comment: DELLA GEMENT OF PATIENT CARE PER NURSING PROTOCOL Performed By: #### L 501.080 ####[facility] [address] [place], [address] FINGERSTICK GLU 195 mg/dL [facility]106 [facility] Comment on above: Result Comment: DELLA GEMENT OF PATIENT CARE PER NURSING PROTOCOL Performed By: #### L 501.080 ####[facility] [address] [place], [address] Blood Gases by CPSon 025 Base excess Calc (Bld) [Moles/Vol] -9 mmol/L Low -2 to +2 [facility] Comment on above: Performed By: #### L 9000.0800 ####[facility] [address] [place], [address] Blood Gas Type ART Normal [facility] Comment on above: Performed By: #### L 9000.0800 ####[facility] [address] [place], [address] CO2 [Moles/Vol] 17 mmol/L Normal [facility] Comment on above: Performed By: #### L 9000.0800 ####[facility] [address] [place], [address] FI02 21.0 Normal [facility] Comment on above: Performed By: #### L 9000.0800 ####[facility] [address] [place], [address] HCO3 (Bld) [Moles/Vol] 15.9 mmol/L Low 22-26 [facility] Comment on above: Performed By: #### L 9000.0800 ####[facility] [address] [place], [address] Mode Not entered [facility] Comment on above: Performed By: #### L 9000.0800 ####[facility] [address] [place], [address] O2 Delivery Dev Not entered [facility] Comment on above: Performed By: #### L 9000.0800 ####[facility] [address] [place], [address] pCO2 27.5 mmHg Low 35-45 [facility] Comment on above: Performed By: #### L 9000.0800 ####[facility] [address] [place], [address] pH (Bld) 7.37 [pH] Normal 7.35-7.45 [facility] Comment on above: Performed By: #### L 9000.0800 ####[facility] [address] [place], [address] PO2 78 mmHG Normal 75-100 [facility] Comment on above: Performed By: #### L 9000.0800 ####[facility] [address] [place], [address] SITE L Brach [facility] Comment on above: Performed By: #### L 9000.0800 ####[facility] [address] [place], [address] SO2 95 Normal 95-99 [facility] Comment on above: Performed By: #### L 9000.0800 ####[facility] [address] [place], [address] CBC W/Diff, Automatedon 04-15 SMEAR COMMENT SCANNED Normal [facility] Comment on above: Performed By: #### L 501.2300, L500.2500, L100.0100, L501.5200 ####[facility] [address] [place], [address] Chest 1 View (Portable)on Chest 1 View (Portable) Normal [facility] Consultation - Intensiviston 04-25-2024 Consultation - Junior Media Buyer Normal [facility] Magnesiumon 04-25-2024 Magnesium [Mass/Vol] 2.1 mg/dL Normal 1.6-2.6 [facility] Comment on above: Performed By: #### L 501.2300, L500.2500, L100.0100, L501.5200 ####[facility] [address] [place], [address] Phosphoruson 04-25-2024 Phosphate [Mass/Vol] 2.5 mg/dL Normal 2.5-4.9 [facility] Comment on above: Performed By: #### L 501.2300, L500.2500 ####[facility] [address] [place], [address] Phosphate [Mass/Vol] 1.2 mg/dL Low 2.5-4.9 [facility] Comment on above: Performed By: #### L 501.2300, L500.2500, L100.0100, L501.5200 ####[facility] [address] [place], [address] Vancomycin, Trough Levelon 0 1-11-2025 VANCO, TROUGH 16.2 ug/mL High 5.0-15.0 [facility] Comment on above: Order Comment: 0730 Result Comment: VANC OMYCIN STANDARED DRUG THERAPY TROUGH LEVEL: 5.0 - 15.0 mg/LVANCOMYCIN HIGH INTENSITY THERAPY TROUGH LEVEL: 15.0 - 20.0 mg/LHigh Intensity therapy recommended for serious lifethreatening infections include:- Lcnwriiedg-Zazvolumwcvi-Wyxplmwaf (Ventilator/Healtcare Associated)-SepsisPLEASE CONTACT PHARMACY SERVICES (#9298) FOR INTERPRETATIONOF RESULTS. Performed By: #### L 501.8820 ####[facility] [address] [place], [address] Albumin, Serumon 04-24-2024 Albumin [Mass/Vol] 1.9 g/dL Low 3.2-5.0 [facility] Comment on above: Performed By: #### L 501.1800, L501.2300, L500.2500 ####[facility] [address] [place], [address] Basic Metabolic Profile (BMP )on 04-24-2024 BUN/CRE 41.2 RATIO High 10-20 [facility] Comment on above: Performed By: #### L 501.1800, L501.2300, L500.2500 ####[facility] [address] [place], [address] CA,Total 8.0 mg/dL Low 8.5-10.1 [facility] Comment on above: Performed By: #### L 501.1800, L501.2300, L500.2500 ####[facility] [address] [place], [address] Chloride [Moles/Vol] 109 mmol/L High 98-107 [facility] Comment on above: Performed By: #### L 501.1800, L501.2300, L500.2500 ####[facility] [address] [place], [address] CO2 [Moles/Vol] 20.0 mmol/L Low 21.0-32.0 [facility] Comment on above: Performed By: #### L 501.1800, L501.2300, L500.2500 ####[facility] [address] [place], [address] Creatinine [Mass/Vol] 0.58 mg/dL Normal 0.55-1.02 [facility] Comment on above: Result Comment: The validity of the calculated GFR GFRAA in patients over70 years has not been determined. Clinical correlation isessential. Performed By: #### L 501.1800, L501.2300, L500.2500 ####[facility] [address] [place], [address] ECRCL 109.23 ml/min Normal [facility] Comment on above: Performed By: #### L 501.1800, L501.2300, L500.2500 ####[facility] [address] [place], [address] EST GFR - AA 139 mL/min Normal >60 [facility] Comment on above: Result Comment: Afri can Slovenian GFR Calc Performed By: #### L 501.1800, L501.2300, L500.2500 ####[facility] [address] [place], [address] GAP 6 Normal 5-15 [facility] Comment on above: Performed By: #### L 501.1800, L501.2300, L500.2500 ####[facility] [address] [place], [address] GFR/1.73 sq M.predicted among non-blacks MDRD (S/P/Bld) [Vol rate/Area] 115 mL/min/{1.73_m2} Normal >60 [facility] Comment on above: Result Comment: Non- GFR Calc Performed By: #### L 501.1800, L501.2300, L500.2500 ####[facility] [address] [place], [address] Glucose [Mass/Vol] 289 mg/dL High 74-106 [facility] Comment on above: Result Comment: Gluc ose result greater than or equal to 200 mg/dLsuggests DIABETES MELLITUS per A.D.A. criteria. Performed By: #### L 501.1800, L501.2300, L500.2500 ####[facility] [address] [place], [address] Potassium [Moles/Vol] 3.7 mmol/L Normal 3.5-5.1 [facility] Comment on above: Performed By: #### L 501.1800, L501.2300, L500.2500 ####[facility] [address] [place], [address] Sodium [Moles/Vol] 135 mmol/L Low 136-145 [facility] Comment on above: Performed By: #### L 501.1800, L501.2300, L500.2500 ####[facility] [address] [place], [address] Urea nitrogen [Mass/Vol] 24 mg/dL High 7-18 [facility] Comment on above: Performed By: #### L 501.1800, L501.2300, L500.2500 ####[facility] [address] [place], [address] BUN/CRE 38.0 RATIO High 10-20 [facility] Comment on above: Order Comment: Call MD with results STAT Performed By: #### L 500.2500, L501.5200, L500.4050 ####[facility] [address] [place], [address] CA,Total 8.5 mg/dL Normal 8.5-10.1 [facility] Comment on above: Order Comment: Call MD with results STAT Performed By: #### L 500.2500, L501.5200, L500.4050 ####[facility] [address] [place], [address] Chloride [Moles/Vol] 111 mmol/L High 98-107 [facility] Comment on above: Order Comment: Call MD with results STAT Performed By: #### L 500.2500, L501.5200, L500.4050 ####[facility] [address] [place], [address] CO2 [Moles/Vol] 22.0 mmol/L Normal 21.0-32.0 [facility] Comment on above: Order Comment: Call MD with results STAT Performed By: #### L 500.2500, L501.5200, L500.4050 ####[facility] [address] [place], [address] Creatinine [Mass/Vol] 0.68 mg/dL Normal 0.55-1.02 [facility] Comment on above: Order Comment: Call MD with results STAT Result Comment: The validity of the calculated GFR GFRAA in patients over70 years has not been determined. Clinical correlation isessential. Performed By: #### L 500.2500, L501.5200, L500.4050 ####[facility] [address] [place], [address] ECRCL 86.09 ml/min Normal [facility] Comment on above: Order Comment: Call MD with results STAT Performed By: #### L 500.2500, L501.5200, L500.4050 ####[facility] [address] [place], [address] EST GFR - AA 115 mL/min Normal >60 [facility] Comment on above: Order Comment: Call MD with results STAT Result Comment: Afri can Slovenian GFR Calc Performed By: #### L 500.2500, L501.5200, L500.4050 ####[facility] [address] [place], [address] GAP 5 Normal 5-15 [facility] Comment on above: Order Comment: Call MD with results STAT Performed By: #### L 500.2500, L501.5200, L500.4050 ####[facility] [address] [place], [address] GFR/1.73 sq M.predicted among non-blacks MDRD (S/P/Bld) [Vol rate/Area] 95 mL/min/{1.73_m2} Normal >60 [facility] Comment on above: Order Comment: Call MD with results STAT Result Comment: Non- GFR Calc Performed By: #### L 500.2500, L501.5200, L500.4050 ####[facility] [address] [place], [address] Glucose [Mass/Vol] 263 mg/dL High 74-106 [facility] Comment on above: Order Comment: Call MD with results STAT Result Comment: Gluc ose result greater than or equal to 200 mg/dLsuggests DIABETES MELLITUS per A.D.A. criteria. Performed By: #### L 500.2500, L501.5200, L500.4050 ####[facility] [address] [place], [address] Potassium [Moles/Vol] 3.6 mmol/L Normal 3.5-5.1 [facility] Comment on above: Order Comment: Call MD with results STAT Performed By: #### L 500.2500, L501.5200, L500.4050 ####[facility] [address] [place], [address] Sodium [Moles/Vol] 138 mmol/L Normal 136-145 [facility] Comment on above: Order Comment: Call MD with results STAT Performed By: #### L 500.2500, L501.5200, L500.4050 ####[facility] [address] [place], [address] Urea nitrogen [Mass/Vol] 26 mg/dL High 7-18 [facility] Comment on above: Order Comment: Call MD with results STAT Performed By: #### L 500.2500, L501.5200, L500.4050 ####[facility] [address] [place], [address] BUN/CRE 31.5 RATIO High 10-20 [facility] Comment on above: Order Comment: Call MD with results STAT Performed By: #### L 500.2500 ####[facility] [address] [place], [address] CA,Total 8.1 mg/dL Low 8.5-10.1 [facility] Comment on above: Order Comment: Call MD with results STAT Performed By: #### L 500.2500 ####[facility] [address] [place], [address] Chloride [Moles/Vol] 109 mmol/L High 98-107 [facility] Comment on above: Order Comment: Call MD with results STAT Performed By: #### L 500.2500 ####[facility] [address] [place], [address] CO2 [Moles/Vol] 21.0 mmol/L Normal 21.0-32.0 [facility] Comment on above: Order Comment: Call MD with results STAT Performed By: #### L 500.2500 ####[facility] [address] [place], [address] Creatinine [Mass/Vol] 0.89 mg/dL Normal 0.55-1.02 [facility] Comment on above: Order Comment: Call MD with results STAT Result Comment: The validity of the calculated GFR GFRAA in patients over70 years has not been determined. Clinical correlation isessential. Performed By: #### L 500.2500 ####[facility] [address] [place], [address] ECRCL 65.78 ml/min Normal [facility] Comment on above: Order Comment: Call MD with results STAT Performed By: #### L 500.2500 ####[facility] [address] [place], [address] EST GFR - AA 85 mL/min Normal >60 [facility] Comment on above: Order Comment: Call MD with results STAT Result Comment: Afri can Slovenian GFR Calc Performed By: #### L 500.2500 ####[facility] [address] [place], [address] GAP 7 Normal 5-15 [facility] Comment on above: Order Comment: Call MD with results STAT Performed By: #### L 500.2500 ####[facility] [address] [place], [address] GFR/1.73 sq M.predicted among non-blacks MDRD (S/P/Bld) [Vol rate/Area] 70 mL/min/{1.73_m2} Normal >60 [facility] Comment on above: Order Comment: Call MD with results STAT Result Comment: Non- GFR Calc Performed By: #### L 500.2500 ####[facility] [address] [place], [address] Glucose [Mass/Vol] 289 mg/dL High 74-106 [facility] Comment on above: Order Comment: Call MD with results STAT Result Comment: Gluc ose result greater than or equal to 200 mg/dLsuggests DIABETES MELLITUS per A.D.A. criteria. Performed By: #### L 500.2500 ####[facility] [address] [place], [address] Potassium [Moles/Vol] 2.9 mmol/L Low 3.5-5.1 [facility] Comment on above: Order Comment: Call MD with results STAT Performed By: #### L 500.2500 ####[facility] [address] [place], [address] Sodium [Moles/Vol] 137 mmol/L Normal 136-145 [facility] Comment on above: Order Comment: Call MD with results STAT Performed By: #### L 500.2500 ####[facility] [address] [place], [address] Urea nitrogen [Mass/Vol] 28 mg/dL High 7-18 [facility] Comment on above: Order Comment: Call MD with results STAT Performed By: #### L 500.2500 ####[facility] [address] [place], [address] Bedside Glucoseon 04-24-2024 FINGERSTICK GLU 286 mg/dL High 74-106 [facility] Comment on above: Result Comment: DELLA GEMENT OF PATIENT CARE PER NURSING PROTOCOL Performed By: #### L 501.080 ####[facility] [address] [place], [address] FINGERSTICK GLU 321 mg/dL High 74-106 [facility] Comment on above: Result Comment: DELLA GEMENT OF PATIENT CARE PER NURSING PROTOCOL Performed By: #### L 501.080 ####[facility] [address] [place], [address] FINGERSTICK GLU 214 mg/dL High 74-106 [facility] Comment on above: Result Comment: DELLA GEMENT OF PATIENT CARE PER NURSING PROTOCOL Performed By: #### L 501.080 ####[facility] [address] [place], [address] FINGERSTICK GLU 214 mg/dL High 74-106 [facility] Comment on above: Result Comment: DELLA GEMENT OF PATIENT CARE PER NURSING PROTOCOL Performed By: #### L 501.080 ####[facility] [address] [place], [address] FINGERSTICK GLU 205 mg/dL High 74-106 [facility] Comment on above: Result Comment: DELLA GEMENT OF PATIENT CARE PER NURSING PROTOCOL Performed By: #### L 501.080 ####[facility] [address] [place], [address] FINGERSTICK GLU 199 mg/dL High 74-106 [facility] Comment on above: Result Comment: DELLA GEMENT OF PATIENT CARE PER NURSING PROTOCOL Performed By: #### L 501.080 ####[facility] [address] [place], [address] FINGERSTICK GLU 237 mg/dL High 74-106 [facility] Comment on above: Result Comment: DELLA GEMENT OF PATIENT CARE PER NURSING PROTOCOL Performed By: #### L 501.080 ####[facility] [address] [place], [address] FINGERSTICK GLU 227 mg/dL High -[address] [place] [address] Comment on above: Result Comment: DELLA GEMENT OF PATIENT CARE PER NURSING PROTOCOL Performed By: #### L 501.080 ####[facility] [address] [place], [address] FINGERSTICK GLU 246 mg/dL High -[address] [place] [address] Comment on above: Result Comment: DELLA GEMENT OF PATIENT CARE PER NURSING PROTOCOL Performed By: #### L 501.080 ####[facility] [address] [place], [address] FINGERSTICK GLU 285 mg/dL High -[address] [place] [address] Comment on above: Result Comment: DELLA GEMENT OF PATIENT CARE PER NURSING PROTOCOL Performed By: #### L 501.080 ####[facility] [address] [place], [address] FINGERSTICK GLU 264 mg/dL High -106 [facility] Comment on above: Result Comment: DELLA GEMENT OF PATIENT CARE PER NURSING PROTOCOL Performed By: #### L 501.080 ####[facility] [address] [place], [address] FINGERSTICK GLU 247 mg/dL High 74-106 [facility] Comment on above: Result Comment: DELLA GEMENT OF PATIENT CARE PER NURSING PROTOCOL Performed By: #### L 501.080 ####[facility] [address] [place], [address] CT Chest, Abd, Pel w/Contras ton 04-24-2024 CT Chest, Abd, Pel w/Contrast Normal [facility] Chest 1 View (Portable)on Chest 1 View (Portable) Normal [facility] Chest 1 View (Portable) Normal [facility] Comprehensive Metabolic Prof ilon 04-24-2024 Albumin [Mass/Vol] 1.9 g/dL Low 3.2-5.0 [facility] Comment on above: Order Comment: Call MD with results STAT Performed By: #### L 500.2500, L501.5200, L500.4050 ####[facility] [address] [place], [address] Albumin/Globulin [Mass ratio] 0.6 {ratio} Low 0.9-2.4 [facility] Comment on above: Order Comment: Call MD with results STAT Performed By: #### L 500.2500, L501.5200, L500.4050 ####[facility] [address] [place], [address] ALK P 108 U/L Normal 45-117 [facility] Comment on above: Order Comment: Call MD with results STAT Performed By: #### L 500.2500, L501.5200, L500.4050 ####[facility] [address] [place], [address] ALT [Catalytic activity/Vol] 36 U/L Normal 13-56 [facility] Comment on above: Order Comment: Call MD with results STAT Performed By: #### L 500.2500, L501.5200, L500.4050 ####[facility] [address] [place], [address] AST [Catalytic activity/Vol] 29 U/L Normal 15-37 [facility] Comment on above: Order Comment: Call MD with results STAT Performed By: #### L 500.2500, L501.5200, L500.4050 ####[facility] [address] [place], [address] Bilirubin [Mass/Vol] 0.50 mg/dL Normal 0.20-1.00 [facility] Comment on above: Order Comment: Call MD with results STAT Result Comment: For patients on eltrombopag therapy, use of Dimension [place] TBIL is not recommended. Performed By: #### L 500.2500, L501.5200, L500.4050 ####[facility] [address] [place], [address] Globulin (S) [Mass/Vol] 3.4 g/dL Normal 2.2-4.2 [facility] Comment on above: Order Comment: Call MD with results STAT Performed By: #### L 500.2500, L501.5200, L500.4050 ####[facility] [address] [place], [address] T PROT 5.3 g/dL Low 6.4-8.2 [facility] Comment on above: Order Comment: Call MD with results STAT Performed By: #### L 500.2500, L501.5200, L500.4050 ####[facility] [address] [place], [address] Echo Completeon 04-24-2024 Echo Complete Normal [facility] Hemoglobin A1con 04-24-2024 HbA1c (Bld) [Mass fraction] 11.7 % High 3.8-5.6 [facility] Comment on above: Result Comment: Norm al < 5.7 % Prediabetic 5.7 - 6.4 % Diabetic >or= 6.5 % Please note range changes. Performed By: #### L 100.0100, L501.2300, L501.9985 ####[facility] [address] [place], [address] M8200.1075on 04-24-2024 M8200.1075 Normal [facility] Comment on above: Performed By: #### M 8200.1075 ####[facility] [address] [place], [address] Magnesiumon 04-24-2024 Magnesium [Mass/Vol] 1.9 mg/dL Normal 1.6-2.6 [facility] Comment on above: Order Comment: Call MD with results STAT Performed By: #### L 500.2500, L501.5200, L500.4050 ####[facility] [address] [place], [address] Phosphoruson 04-24-2024 Phosphate [Mass/Vol] 2.1 mg/dL Low 2.5-4.9 [facility] Comment on above: Performed By: #### L 501.1800, L501.2300, L500.2500 ####[facility] [address] [place], [address] Phosphate [Mass/Vol] 1.0 mg/dL Invalid Interpretation Code 2.5-4.9 [facility] Comment on above: Result Comment: Crit ical Result(s) Called at: 05:13:58 04/24/2024 by: BOZENA to Paulina Santamaria. Results read back by same. Performed By: #### L 100.0100, L501.2300, L501.9985 ####[facility] [address] [place], [address] Procedure Reporton Procedure Report Normal [facility] Renal Profileon 04-24-2024 ALB Normal 3.2-5.0 [facility] Comment on above: Result Comment: DUPL ICATE ORDER. TESTS ADDED TO BMP. Performed By: #### L 500.3600 ####[facility] [address] [place], [address] BUN Normal 7-18 [facility] Comment on above: Result Comment: DUPL ICATE ORDER. TESTS ADDED TO BMP. Performed By: #### L 500.3600 ####[facility] [address] [place], [address] BUN/CRE Normal 10-20 [facility] Comment on above: Result Comment: DUPL ICATE ORDER. TESTS ADDED TO BMP. Performed By: #### L 500.3600 ####[facility] [address] [place], [address] CA,Total Normal 8.5-10.1 [facility] Comment on above: Result Comment: DUPL ICATE ORDER. TESTS ADDED TO BMP. Performed By: #### L 500.3600 ####[facility] [address] [place], [address] CL Normal 98-107 [facility] Comment on above: Result Comment: DUPL ICATE ORDER. TESTS ADDED TO BMP. Performed By: #### L 500.3600 ####[facility] [address] [place], [address] CO2 Normal 21.0-32.0 [facility] Comment on above: Result Comment: DUPL ICATE ORDER. TESTS ADDED TO BMP. Performed By: #### L 500.3600 ####[facility] [address] [place], [address] CREAT,SERUM Normal 0.55-1.02 [facility] Comment on above: Result Comment: DUPL ICATE ORDER. TESTS ADDED TO BMP. Performed By: #### L 500.3600 ####[facility] [address] [place], [address] EST GFR Normal >60 [facility] Comment on above: Result Comment: DUPL ICATE ORDER. TESTS ADDED TO BMP. Performed By: #### L 500.3600 ####[facility] [address] [place], [address] EST GFR - AA Normal >60 [facility] Comment on above: Result Comment: DUPL ICATE ORDER. TESTS ADDED TO BMP. Performed By: #### L 500.3600 ####[facility] [address] [place], [address] GLU Normal 74-106 [facility] Comment on above: Result Comment: DUPL ICATE ORDER. TESTS ADDED TO BMP. Performed By: #### L 500.3600 ####[facility] [address] [place], [address] PHOS Normal 2.5-4.9 [facility] Comment on above: Result Comment: DUPL ICATE ORDER. TESTS ADDED TO BMP. Performed By: #### L 500.3600 ####[facility] [address] [place], [address] Potassium Normal 3.5-5.1 [facility] Comment on above: Result Comment: DUPL ICATE ORDER. TESTS ADDED TO BMP. Performed By: #### L 500.3600 ####[facility] [address] [place], [address] Renal Profile Normal 136-145 [facility] Comment on above: Result Comment: DUPL ICATE ORDER. TESTS ADDED TO BMP. Performed By: #### L 500.3600 ####[facility] [address] [place], [address] 12 Lead EKGon 04-23-2024 12 Lead EKG Normal [facility] Acetone Serumon 04-23-2024 ACETONE SERUM MODERATE Abnormal NEG [facility] Comment on above: Performed By: #### L 500.2500, L501.6900, L100.0100 ####[facility] [address] [place], [address] Basic Metabolic Profile (BMP )on 04-23-2024 BUN/CRE 31.2 RATIO High 10-20 [facility] Comment on above: Order Comment: Call MD with results STAT Performed By: #### L 500.2500 ####[facility] [address] [place], [address] CA,Total 8.3 mg/dL Low 8.5-10.1 [facility] Comment on above: Order Comment: Call MD with results STAT Performed By: #### L 500.2500 ####[facility] [address] [place], [address] Chloride [Moles/Vol] 106 mmol/L Normal 98-107 [facility] Comment on above: Order Comment: Call MD with results STAT Performed By: #### L 500.2500 ####[facility] [address] [place], [address] CO2 [Moles/Vol] 21.0 mmol/L Normal 21.0-32.0 [facility] Comment on above: Order Comment: Call MD with results STAT Performed By: #### L 500.2500 ####[facility] [address] [place], [address] Creatinine [Mass/Vol] 0.93 mg/dL Normal 0.55-1.02 [facility] Comment on above: Order Comment: Call MD with results STAT Result Comment: The validity of the calculated GFR GFRAA in patients over70 years has not been determined. Clinical correlation isessential. Performed By: #### L 500.2500 ####[facility] [address] [place], [address] ECRCL 62.95 ml/min Normal [facility] Comment on above: Order Comment: Call MD with results STAT Performed By: #### L 500.2500 ####[facility] [address] [place], [address] EST GFR - AA 81 mL/min Normal >60 [facility] Comment on above: Order Comment: Call MD with results STAT Result Comment: Afri can Slovenian GFR Calc Performed By: #### L 500.2500 ####[facility] [address] [place], [address] GAP 8 Normal 5-15 [facility] Comment on above: Order Comment: Call MD with results STAT Performed By: #### L 500.2500 ####[facility] [address] [place], [address] GFR/1.73 sq M.predicted among non-blacks MDRD (S/P/Bld) [Vol rate/Area] 67 mL/min/{1.73_m2} Normal >60 [facility] Comment on above: Order Comment: Call MD with results STAT Result Comment: Non- GFR Calc Performed By: #### L 500.2500 ####[facility] [address] [place], [address] Glucose [Mass/Vol] 267 mg/dL High 74-106 [facility] Comment on above: Order Comment: Call MD with results STAT Result Comment: Gluc ose result greater than or equal to 200 mg/dLsuggests DIABETES MELLITUS per A.D.A. criteria. Performed By: #### L 500.2500 ####[facility] [address] [place], [address] Potassium [Moles/Vol] 3.3 mmol/L Low 3.5-5.1 [facility] Comment on above: Order Comment: Call MD with results STAT Performed By: #### L 500.2500 ####[facility] [address] [place], [address] Sodium [Moles/Vol] 135 mmol/L Low 136-145 [facility] Comment on above: Order Comment: Call MD with results STAT Performed By: #### L 500.2500 ####[facility] [address] [place], [address] Urea nitrogen [Mass/Vol] 29 mg/dL High 7-18 [facility] Comment on above: Order Comment: Call MD with results STAT Performed By: #### L 500.2500 ####[facility] [address] [place], [address] BUN/CRE 29.3 RATIO High 10-20 [facility] Comment on above: Order Comment: Call MD with results STAT Performed By: #### L 500.2500 ####[facility] [address] [place], [address] CA,Total 8.6 mg/dL Normal 8.5-10.1 [facility] Comment on above: Order Comment: Call MD with results STAT Performed By: #### L 500.2500 ####[facility] [address] [place], [address] Chloride [Moles/Vol] 101 mmol/L Normal 98-107 [facility] Comment on above: Order Comment: Call MD with results STAT Performed By: #### L 500.2500 ####[facility] [address] [place], [address] CO2 [Moles/Vol] 18.0 mmol/L Low 21.0-32.0 [facility] Comment on above: Order Comment: Call MD with results STAT Performed By: #### L 500.2500 ####[facility] [address] [place], [address] Creatinine [Mass/Vol] 1.16 mg/dL High 0.55-1.02 [facility] Comment on above: Order Comment: Call MD with results STAT Result Comment: The validity of the calculated GFR GFRAA in patients over70 years has not been determined. Clinical correlation isessential. Performed By: #### L 500.2500 ####[facility] [address] [place], [address] ECRCL 50.47 ml/min Normal [facility] Comment on above: Order Comment: Call MD with results STAT Performed By: #### L 500.2500 ####[facility] [address] [place], [address] EST GFR - AA 63 mL/min Normal >60 [facility] Comment on above: Order Comment: Call MD with results STAT Result Comment: Afri can Slovenian GFR Calc Performed By: #### L 500.2500 ####[facility] [address] [place], [address] GAP 13 Normal 5-15 [facility] Comment on above: Order Comment: Call MD with results STAT Performed By: #### L 500.2500 ####[facility] [address] [place], [address] GFR/1.73 sq M.predicted among non-blacks MDRD (S/P/Bld) [Vol rate/Area] 52 mL/min/{1.73_m2} Low >60 [facility] Comment on above: Order Comment: Call MD with results STAT Result Comment: Non- GFR Calc Performed By: #### L 500.2500 ####[facility] [address] [place], [address] Glucose [Mass/Vol] 388 mg/dL High 74-106 [facility] Comment on above: Order Comment: Call MD with results STAT Result Comment: Gluc ose result greater than or equal to 200 mg/dLsuggests DIABETES MELLITUS per A.D.A. criteria. Performed By: #### L 500.2500 ####[facility] [address] [place], [address] Potassium [Moles/Vol] 2.8 mmol/L Low 3.5-5.1 [facility] Comment on above: Order Comment: Call MD with results STAT Performed By: #### L 500.2500 ####[facility] [address] [place], [address] Sodium [Moles/Vol] 132 mmol/L Low 136-145 [facility] Comment on above: Order Comment: Call MD with results STAT Performed By: #### L 500.2500 ####[facility] [address] [place], [address] Urea nitrogen [Mass/Vol] 34 mg/dL High 7-18 [facility] Comment on above: Order Comment: Call MD with results STAT Performed By: #### L 500.2500 ####[facility] [address] [place], [address] BUN/CRE 30.4 RATIO High 10-20 [facility] Comment on above: Performed By: #### L 500.2500, L501.6900, L100.0100 ####[facility] [address] [place], [address] CA,Total 9.3 mg/dL Normal 8.5-10.1 [facility] Comment on above: Performed By: #### L 500.2500, L501.6900, L100.0100 ####[facility] [address] [place], [address] Chloride [Moles/Vol] 93 mmol/L Low 98-107 [facility] Comment on above: Performed By: #### L 500.2500, L501.6900, L100.0100 ####[facility] [address] [place], [address] CO2 [Moles/Vol] 16.0 mmol/L Low 21.0-32.0 [facility] Comment on above: Performed By: #### L 500.2500, L501.6900, L100.0100 ####[facility] [address] [place], [address] Creatinine [Mass/Vol] 1.25 mg/dL High 0.55-1.02 [facility] Comment on above: Result Comment: The validity of the calculated GFR GFRAA in patients over70 years has not been determined. Clinical correlation isessential. Performed By: #### L 500.2500, L501.6900, L100.0100 ####[facility] [address] [place], [address] ECRCL 46.84 ml/min Normal [facility] Comment on above: Performed By: #### L 500.2500, L501.6900, L100.0100 ####[facility] [address] [place], [address] EST GFR - AA 58 mL/min Low >60 [facility] Comment on above: Result Comment: Afri can Slovenian GFR Calc Performed By: #### L 500.2500, L501.6900, L100.0100 ####[facility] [address] [place], [address] GAP 21 High 5-15 [facility] Comment on above: Performed By: #### L 500.2500, L501.6900, L100.0100 ####[facility] [address] [place], [address] GFR/1.73 sq M.predicted among non-blacks MDRD (S/P/Bld) [Vol rate/Area] 48 mL/min/{1.73_m2} Low >60 [facility] Comment on above: Result Comment: Non- GFR Calc Performed By: #### L 500.2500, L501.6900, L100.0100 ####[facility] [address] [place], [address] Glucose [Mass/Vol] 483 mg/dL Invalid Interpretation Code 74-106 [facility] Comment on above: Result Comment: Crit ical Result(s) Called at: 15:35:30 04/23/2024 by: Ary to Jessika Paul. Results read back by same.Glucose result greater than or equal to 200 mg/dLsuggests DIABETES MELLITUS per A.D.A. criteria. Performed By: #### L 500.2500, L501.6900, L100.0100 ####[facility] [address] [place], [address] Potassium [Moles/Vol] 3.4 mmol/L Low 3.5-5.1 [facility] Comment on above: Performed By: #### L 500.2500, L501.6900, L100.0100 ####[facility] [address] [place], [address] Sodium [Moles/Vol] 130 mmol/L Low 136-145 [facility] Comment on above: Performed By: #### L 500.2500, L501.6900, L100.0100 ####[facility] [address] [place], [address] Urea nitrogen [Mass/Vol] 38 mg/dL High 7-18 [facility] Comment on above: Performed By: #### L 500.2500, L501.6900, L100.0100 ####[facility] [address] [place], [address] BUN/CRE 28.0 RATIO High 10-20 [facility] Comment on above: Performed By: #### L 500.2500 ####[facility] [address] [place], [address] CA,Total 9.9 mg/dL Normal 8.5-10.1 [facility] Comment on above: Performed By: #### L 500.2500 ####[facility] [address] [place], [address] Chloride [Moles/Vol] 91 mmol/L Low 98-107 [facility] Comment on above: Performed By: #### L 500.2500 ####[facility] [address] [place], [address] CO2 [Moles/Vol] 14.0 mmol/L Low 21.0-32.0 [facility] Comment on above: Performed By: #### L 500.2500 ####[facility] [address] [place], [address] Creatinine [Mass/Vol] 1.43 mg/dL High 0.55-1.02 [facility] Comment on above: Result Comment: The validity of the calculated GFR GFRAA in patients over70 years has not been determined. Clinical correlation isessential. Performed By: #### L 500.2500 ####[facility] [address] [place], [place], [phone] ECRCL 40.94 ml/min Normal [facility] Comment on above: Performed By: #### L 500.2500 ####[facility] [address] [place], [address] EST GFR - AA 49 mL/min Low >60 [facility] Comment on above: Result Comment: Afri can Slovenian GFR Calc Performed By: #### L 500.2500 ####[facility] [address] [place], [address] GAP 21 High 5-15 [facility] Comment on above: Performed By: #### L 500.2500 ####[facility] [address] [place], [address] GFR/1.73 sq M.predicted among non-blacks MDRD (S/P/Bld) [Vol rate/Area] 41 mL/min/{1.73_m2} Low >60 [facility] Comment on above: Result Comment: Non- GFR Calc Performed By: #### L 500.2500 ####[facility] [address] [place], [place], [phone] Glucose [Mass/Vol] 475 mg/dL Invalid Interpretation Code 74-106 [facility] Comment on above: Result Comment: Crit ical Result(s) Called at: 13:30:41 04/23/2024 by:Daiana Rogers. Results read back by same.Glucose result greater than or equal to 200 mg/dLsuggests DIABETES MELLITUS per A.D.A. criteria. Performed By: #### L 500.2500 ####[facility] [address] [place], [address] Potassium [Moles/Vol] 3.1 mmol/L Low 3.5-5.1 [facility] Comment on above: Performed By: #### L 500.2500 ####[facility] [address] [place], [address] Sodium [Moles/Vol] 127 mmol/L Low 136-145 [facility] Comment on above: Performed By: #### L 500.2500 ####[facility] [address] [place], [address] Urea nitrogen [Mass/Vol] 40 mg/dL High 7-18 [facility] Comment on above: Performed By: #### L 500.2500 ####[facility] [address] [place], [address] Bedside Glucoseon 04-23-2024 FINGERSTICK GLU 233 mg/dL High 74-106 [facility] Comment on above: Result Comment: DELLA GEMENT OF PATIENT CARE PER NURSING PROTOCOL Performed By: #### L 501.080 ####[facility] [address] [place], [address] FINGERSTICK GLU 231 mg/dL High 74-106 [facility] Comment on above: Result Comment: DELLA GEMENT OF PATIENT CARE PER NURSING PROTOCOL Performed By: #### L 501.080 ####[facility] [address] [place], [address] FINGERSTICK GLU 272 mg/dL High 74-106 [facility] Comment on above: Result Comment: DELLA GEMENT OF PATIENT CARE PER NURSING PROTOCOL Performed By: #### L 501.080 ####[facility] [address] [place], [address] FINGERSTICK GLU 274 mg/dL High 74-106 [facility] Comment on above: Result Comment: DELLA GEMENT OF PATIENT CARE PER NURSING PROTOCOL Performed By: #### L 501.080 ####[facility] [address] [place], [address] FINGERSTICK GLU 282 mg/dL High 74-106 [facility] Comment on above: Result Comment: DELLA GEMENT OF PATIENT CARE PER NURSING PROTOCOL Performed By: #### L 501.080 ####[facility] [address] [place], [address] FINGERSTICK GLU 338 mg/dL High 74-106 [facility] Comment on above: Result Comment: DELLA GEMENT OF PATIENT CARE PER NURSING PROTOCOL Performed By: #### L 501.080 ####[facility] [address] [place], [address] Blood Gases by [facility] 025 Base excess Calc (Bld) [Moles/Vol] -12 mmol/L Low -2 to +2 [facility] Comment on above: Performed By: #### L 9000.0800 ####[facility] [address] [place], [address] Blood Gas Type ART [facility] Comment on above: Performed By: #### L 9000.0800 ####[facility] [address] [place], [address] CO2 [Moles/Vol] 14 mmol/L [facility] Comment on above: Performed By: #### L 9000.0800 ####[facility] [address] [place], [address] HCO3 (Bld) [Moles/Vol] 13.5 mmol/L Low 22-26 [facility] Comment on above: Performed By: #### L 9000.0800 ####[facility] [address] [place], [address] Mode Not entered [facility] Comment on above: Performed By: #### L 9000.0800 ####[facility] [address] [place], [address] O2 Delivery Dev Not entered [facility] Comment on above: Performed By: #### L 9000.0800 ####[facility] [address] [place], [address] pCO2 24.3 mmHg Low 35-45 [facility] Comment on above: Performed By: #### L 9000.0800 ####[facility] [address] [place], [address] pH (Bld) 7.35 [pH] Normal 7.35-7.45 [facility] Comment on above: Performed By: #### L 9000.0800 ####[facility] [address] [place], [address] PO2 74 mmHG Low 75-100 [facility] Comment on above: Performed By: #### L 9000.0800 ####[facility] [address] [place], [address] SITE L Brach Normal [facility] Comment on above: Performed By: #### L 9000.0800 ####[facility] [address] [place], [address] SO2 94 Low 95-99 [facility] Comment on above: Performed By: #### L 9000.0800 ####[facility] [address] [place], [address] Chest 1 View (Portable)on Chest 1 View (Portable) Normal [facility] Chest 1 View (Portable) Normal [facility] Emergency Department Summary on 04-23-2024 Emergency Department Summary Normal [facility] H AND P Exam - Hospitaliston 04-23-2024 H&P Exam - Hospitalist Normal [facility] Lactic Acidon 04-23-2024 Lactate [Moles/Vol] 1.7 mmol/L Normal 0.4-1.9 [facility] Comment on above: Performed By: #### L 503.6005 ####[facility] [address] [place], [address] Lactate [Moles/Vol] 2.8 mmol/L Invalid Interpretation Code 0.4-1.9 [facility] Comment on above: Order Comment: Y Result Comment: .Cri tical Result(s) Called at: 15:36:45 04/23/2024 by:Irma Mireles to Jessika Paul. Results read back by same. Performed By: #### M 200.1000, L503.6005, L501.2300 ####[facility] [address] [place], [address] Legionella Antigen Urineon 0 04-23-2024 LEGU Normal [facility] Comment on above: Performed By: #### M 300.4600, M300.4500 ####[facility] [address] [place], [address] Liver Profileon 04-23-2024 Albumin [Mass/Vol] 2.6 g/dL Low 3.2-5.0 [facility] Comment on above: Performed By: #### L 500.3400, L501.5200 ####[facility] [address] [place], [address] ALK P 153 U/L High 45-117 [facility] Comment on above: Performed By: #### L 500.3400, L501.5200 ####[facility] [address] [place], [address] ALT [Catalytic activity/Vol] 52 U/L Normal 13-56 [facility] Comment on above: Performed By: #### L 500.3400, L501.5200 ####[facility] [address] [place], [address] AST [Catalytic activity/Vol] 29 U/L Normal 15-37 [facility] Comment on above: Performed By: #### L 500.3400, L501.5200 ####[facility] [address] [place], [address] Bilirubin [Mass/Vol] 0.80 mg/dL Normal 0.20-1.00 [facility] Comment on above: Result Comment: For patients on eltrombopag therapy, use of Dimension [place] TBIL is not recommended. Performed By: #### L 500.3400, L501.5200 ####[facility] [address] [place], [address] Bilirubin.direct [Mass/Vol] 0.43 mg/dL High 0.00-0.30 [facility] Comment on above: Performed By: #### L 500.3400, L501.5200 ####[facility] [address] [place], [address] Globulin (S) [Mass/Vol] 3.4 g/dL Normal 2.2-4.2 [facility] Comment on above: Performed By: #### L 500.3400, L501.5200 ####[facility] [address] [place], [address] T PROT 6.0 g/dL Low 6.4-8.2 [facility] Comment on above: Performed By: #### L 500.3400, L501.5200 ####[facility] [address] [place], [address] Magnesiumon 04-23-2024 Magnesium [Mass/Vol] 2.1 mg/dL Normal 1.6-2.6 [facility] Comment on above: Performed By: #### L 500.3400, L501.5200 ####[facility] [address] [place], [address] Phosphoruson 04-23-2024 Phosphate [Mass/Vol] 2.1 mg/dL Low 2.5-4.9 [facility] Comment on above: Performed By: #### M 200.1000, L503.6005, L501.2300 ####[facility] [address] [place], [address] Procalcitoninon 04-23-2024 Procalcitonin 28.73 ng/mL High 0.00-0.09 [facility] Comment on above: Result Comment: A pr ocalcitonin (PCT) level above 2.0 ng/mL on the first day of ICU admission is associated with a high risk for progression to severe sepsis and/or septic shock. A PCT level below 0.5 ng/mL on the first day of ICU admission is associated with a low risk for progression to severe and/or septic shock. Note: Concentrations <0.5 ng/mL do not exclude an infection on account of localized infections (without systemic signs) which can be associated with such low concentrations, or a systemic infection in its initial stages (<6 hours). Furthermore, increased procalcitonin can occur without infection. PCT concentrations between 0.5 and 2.0 ng/mL should be interpreted taking into account the patient's history. It is recommended to retest PCT within 6-24 hours if any concentrations <2 ng/mL are obtained. Performed By: #### L 509.7000 ####[facility] [address] [place], [place], [address] RESPIRATORY PANEL MOLECULARo n 04-23-2024 RP PANEL Normal [facility] Comment on above: Performed By: #### M 100.638 ####[facility] [address] [place], [address] Strep pneumoniae Antig(UR,CS F)on 04-23-2024 STPAG Normal [facility] Comment on above: Performed By: #### M 300.4600, M300.4500 ####[facility] [address] [place], [place], [address] Urinalysis, Completeon 04-23 EPI,SQUAMOUS 0-5 SEEN Normal 5-10 [facility] Comment on above: Order Comment: OMAR TER SPECIMEN Performed By: #### L 400.0001 ####[facility] [address] [place], [address] WBC 0-5 SEEN Normal 0-5 [facility] Comment on above: Order Comment: OMAR TER SPECIMEN Performed By: #### L 400.0001 ####[facility] [address] [place], [address] BACTERIA 0 SEEN Normal None Seen [facility] Comment on above: Order Comment: OMAR TER SPECIMEN Performed By: #### L 400.0001 ####[facility] [address] [place], [address] Mucus Ql (Urine sed) 0 SEEN Normal [facility] Comment on above: Order Comment: OMAR TER SPECIMEN Performed By: #### L 400.0001 ####[facility] [address] [place], [address] RBC 0 SEEN Normal 0-5 [facility] Comment on above: Order Comment: OMAR TER SPECIMEN Performed By: #### L 400.0001 ####[facility] [address] [place], [address] Urine Drug Screen (VISTA)on 04-23-2024 AMPHETAMINES Negative Normal <1000 ng/mL [facility] Comment on above: Performed By: #### L 505.5000 ####[facility] [address] [place], [address] BARBITIURATES Negative Normal < 200 ng/mL [facility] Comment on above: Performed By: #### L 505.5000 ####[facility] [address] [place], [address] BENZODIAZIPINE Negative Normal < 200 ng/mL [facility] Comment on above: Performed By: #### L 505.5000 ####[facility] [address] [place], [address] COCAINE Negative Normal < 300 ng/mL [facility] Comment on above: Performed By: #### L 505.5000 ####[facility] [address] [place], [address] ECSTACY Negative Normal < 500 ng/mL [facility] Comment on above: Performed By: #### L 505.5000 ####[facility] [address] [place], [address] METHADONE Negative Normal < 300 ng/mL [facility] Comment on above: Performed By: #### L 505.5000 ####[facility] [address] [place], [address] OPIATES Negative Normal < 300 ng/mL [facility] Comment on above: Performed By: #### L 505.5000 ####[facility] [address] [place], [address] PCP Negative Normal < 25 ng/mL [facility] Comment on above: Performed By: #### L 505.5000 ####[facility] [address] [place], [address] THC Negative Normal < 50 ng/mL [facility] Comment on above: Performed By: #### L 505.5000 ####[facility] [address] [place], [address] VISTA UDS PH 5 Normal [facility] Comment on above: Performed By: #### L 505.5000 ####[facility] [address] [place], [address] Cult,Urineon 04-11-2024 Cult,Urine Specimen Description .CLEAN CATCH URINE Special Requests Site: Urine Culture MIXED GRAM POSITIVE ORGANISMS 1,000 TO 10,000 CFU/ML Report Status FINAL 04/11/2024 Normal [facility] Comment on above: Performed By: #### P HVBG, LACTIC, PER, LIP, MG, CBC, CP #### [facility] [address] [place] [address] [employer]andy Cutter Hand: Yaritza Infante MD #### BH #### [place] [place], [place] [id number] Candy Cutter Hand: Rodríguez Suarez MD Beta Hydroxybutyrateon 04-10 Beta Hydroxybutyrate 0.07 mmol/L Normal 0.02-0.27 [facility] Comment on above: Performed By: #### P HVBG, LACTIC, PER, LIP, MG, CBC, CP #### [facility] [address] [place], [place] [id number] Candy Cutter Hand: Yaritza Infante MD #### BH #### [place] [id number] [employer] Hand: Rodríguez Suarez MD Beta-Hydroxybutyrateon 04-10 Beta hydroxybutyrate [Mass/Vol] 0.07 mmol/L 0.02 - 0.27 mmol/L [facility] CBC with Auto Differentialon 04-10-2024 Basophils (Bld) [#/Vol] 0.03 10*3/uL [facility] Basophils/100 WBC (Bld) 1 % 0.0 - 2.0 % [facility] Eosinophils (Bld) [#/Vol] 0.15 10*3/uL [facility] Eosinophils/100 WBC (Bld) 4 % 0 - 6 % [facility] Erythrocyte distribution width (RBC) [Ratio] 13.1 % 11.5 - 15.0 % [facility] Hematocrit (Bld) [Volume fraction] 41.0 % 34.0 - 48.0 % [facility] Hemoglobin (Bld) [Mass/Vol] 13.6 g/dL 11.5 - 15.5 g/dL [facility] Immature granulocytes (Bld) [#/Vol] 0.07 10*3/uL [facility] Immature granulocytes/100 WBC (Bld) 2 % 0.0 - 5.0 % [facility] Interpretation and review of laboratory results Abnormal [facility] Lymphocytes/100 WBC (Bld) 31 % 20.0 - 42.0 % [facility] Lymphocytes/100 WBC (Bld) 1.21 % Low [facility] MCH (RBC) [Entitic mass] 28.1 pg 26.0 - 35.0 pg [facility] MCHC (RBC) [Mass/Vol] 33.2 g/dL 32.0 - 34.5 g/dL [facility] MCV (RBC) [Entitic vol] 84.7 fL 80.0 - 99.9 fL [facility] Monocytes/100 WBC (Bld) 12 % 2.0 - 12.0 % [facility] Monocytes/100 WBC (Bld) 0.46 % [facility] Neutrophils/100 WBC (Bld) 51 % 43.0 - 80.0 % [facility] Platelet mean volume (Bld) [Entitic vol] 10.5 fL 7.0 - 12.0 fL [facility] Platelets (Bld) [#/Vol] 182 10*3/uL [facility] RBC (Bld) [#/Vol] 4.84 10*6/uL 3.50 - 5.5 0 m/uL [facility] Segmented neutrophils/100 WBC (Bld) 2.00 % [facility] WBC other (Bld) [#/Vol] 3.9 Low [facility] CBC with Diffon 04-10-2024 Abs. Basophil 0.03 k/uL Normal 0.00-0.20 [facility] Comment on above: Performed By: #### P HVBG, LACTIC, PER, LIP, MG, CBC, CP #### [facility] [address] [place] [address] Candy Cutter Hand: Yaritza Infante MD #### BH #### [facility] [address] [place] [address] Candy Cutter Hand: Rodríguez Suarez MD Abs.Imm.Granulocyte 0.07 k/uL Normal 0.00-0.58 [facility] Comment on above: Performed By: #### P HVBG, LACTIC, PER, LIP, MG, CBC, CP #### [facility] [address] [place] [address] Candy Cutter Hand: Yaritza Infante MD #### #### [place] [address] Candy Cutter Hand: Rodríguez Suarez MD Abs.Neutrophil (Seg) 2.00 k/uL Normal 1.80-7.30 [facility] Comment on above: Performed By: #### P HVBG, LACTIC, PER, LIP, MG, CBC, CP #### [facility] [address] [place] [address] Candy Cutter Hand: Yaritza Infante MD #### #### [place] [address] Candy Cutter Hand: Rodríguez Suarez MD Basophils/100 WBC (Bld) 1 % Normal 0.0-2.0 [facility] Comment on above: Performed By: #### P HVBG, LACTIC, PER, LIP, MG, CBC, CP #### [facility] [address] [place] [address] C[employer] C[employer] Hand: Yaritza Infante MD #### #### [place] [address] Candy Cutter Hand: Rodríguez Suarez MD Eosinophils (Bld) [#/Vol] 0.15 10*3/uL Normal 0.05-0.50 [facility] Comment on above: Performed By: #### P HVBG, LACTIC, PER, LIP, MG, CBC, CP #### [facility] [address] [place] [address] C[employer] C[employer] Hand: Yaritza Infante MD #### BH #### [address] [address] C[employer] Hand: Rodríguez Suarez MD Eosinophils/100 WBC (Bld) 4 % Normal 0-6 [facility] Comment on above: Performed By: #### P HVBG, LACTIC, PER, LIP, MG, CBC, CP #### [facility] [place] [address] Candy Cutter Hand: Yaritza Infante MD #### BH #### [place] [address] Candy Cutter Hand: Rodríguez Suarez MD Erythrocyte distribution width (RBC) [Ratio] 13.1 % Normal 11.5-15.0 [facility] Comment on above: Performed By: #### P HVBG, LACTIC, PER, LIP, MG, CBC, CP #### [facility] [address] [place] [address] Candy Cutter Hand: Yaritza Infante MD #### BH #### [place] [address] Candy Cutter Hand: Rodríguez Suarez MD Hematocrit (Bld) [Volume fraction] 41.0 % Normal 34.0-48.0 [facility] Comment on above: Performed By: #### P HVBG, LACTIC, PER, LIP, MG, CBC, CP #### [facility] [address] [place] [address] Candy Cutter Hand: Yaritza Infante MD #### BH #### [address] [place] [id number] Candy Cutter Hand: Rodríguez Suarez MD Hemoglobin (Bld) [Mass/Vol] 13.6 g/dL Normal 11.5-15.5 [facility] Comment on above: Performed By: #### P HVBG, LACTIC, PER, LIP, MG, CBC, CP #### [facility] [address] [place] [address] Candy Cutter Hand: Yaritza Infante MD #### BH #### [place] [address] Candy Cutter Hand: Rodríguez Suarez MD Immature granulocytes/100 WBC (Bld) 2 % Normal 0.0-5.0 [facility] Comment on above: Performed By: #### P HVBG, LACTIC, PER, LIP, MG, CBC, CP #### [facility] [address] [place] [address] Candy Cutter Hand: Yaritza Infante MD #### BH #### [place] [address] Candy Cutter Hand: Rodríguez Suarez MD Lymphocytes (Bld) [#/Vol] 1.21 10*3/uL Low 1.50-4.00 [facility] Comment on above: Performed By: #### P HVBG, LACTIC, PER, LIP, MG, CBC, CP #### [facility] [address] [place] [address] Candy Cutter Hand: Yaritza Infante MD #### BH #### [place] [address] Candy Cutter Hand: Rodríguez Suarez MD Lymphocytes/100 WBC (Bld) 31 % Normal 20.0-42.0 [facility] Comment on above: Performed By: #### P HVBG, LACTIC, PER, LIP, MG, CBC, CP #### [facility] [address] [place] [address] Candy Cutter Hand: Yaritza Infante MD #### BH #### [place] [address] Candy Cutter Hand: Rodríguez Suarez MD MCH (RBC) [Entitic mass] 28.1 pg Normal 26.0-35.0 [facility] Comment on above: Performed By: #### P HVBG, LACTIC, PER, LIP, MG, CBC, CP #### [facility] [address] [place] [address] Candy Cutter Hand: Yaritza Infante MD #### BH #### [place] [address] Candy Cutter Hand: Rodríguez Suarez MD [facility] ([facility]) [Mass/Vol] 33.2 g/dL Normal 32.0-34.5 [facility] Comment on above: Performed By: #### P HVBG, LACTIC, PER, LIP, MG, CBC, CP #### [facility] [address] [place] [address] Candy Cutter Hand: Yaritza Infante MD #### BH #### [place] [address] Candy Cutter Hand: Rodríguez Suarez MD MCV (RBC) [Entitic vol] 84.7 fL Normal 80.0-99.9 [facility] Comment on above: Performed By: #### P HVBG, LACTIC, PER, LIP, MG, CBC, CP #### [facility] [address] [place], [place] [id number] Candy Cutter Hand: Yaritza Infante MD #### BH #### [place] [address] Candy Cutter Hand: Rodríguez Suarez MD Monocytes (Bld) [#/Vol] 0.46 10*3/uL Normal 0.10-0.95 [facility] Comment on above: Performed By: #### P HVBG, LACTIC, PER, LIP, MG, CBC, CP #### [facility] [address] [place] [address] Candy Cutter Hand: Yaritza Infante MD #### BH #### [place] [address] Candy Cutter Hand: Rodríguez Suarez MD Monocytes/100 WBC (Bld) 12 % Normal 2.0-12.0 [facility] Comment on above: Performed By: #### P HVBG, LACTIC, PER, LIP, MG, CBC, CP #### [facility] [address] [place] [address] Candy Cutter Hand: Yaritza Infante MD #### BH #### [place] [address] Candy Cutter Hand: Rodríguez Suarez MD Neutrophil (Seg) 51 % Normal 43.0-80.0 [facility] Comment on above: Performed By: #### P HVBG, LACTIC, PER, LIP, MG, CBC, CP #### [facility] [address] [place] [address] Candy Cutter Hand: Yaritza Infante MD #### BH #### [place] [address] Candy Cutter Hand: Rodríguez Suarez MD Platelet mean volume (Bld) [Entitic vol] 10.5 fL Normal 7.0-12.0 [facility] Comment on above: Performed By: #### P HVBG, LACTIC, PER, LIP, MG, CBC, CP #### [facility] [address] [place] [address] Candy Cutter Hand: Yaritza Infante MD #### BH #### [place] [address] Candy Cutter Hand: Rodríguez Suarez MD Platelets (Bld) [#/Vol] 182 10*3/uL Normal 130-450 [facility] Comment on above: Performed By: #### P HVBG, LACTIC, PER, LIP, MG, CBC, CP #### [facility] [address] [place] [address] Candy Cutter Hand: Yaritza Infante MD #### BH #### [place] [address] Candy Cutter Hand: Rodríguez Suarez MD RBC (Bld) [#/Vol] 4.84 10*6/uL Normal 3.50-5.50 [facility] Comment on above: Performed By: #### P HVBG, LACTIC, PER, LIP, MG, CBC, CP #### [facility] [address] [place] [address] Candy Cutter Hand: Yaritza Infante MD #### BH #### [place] [address] Candy Cutter Hand: Rodríguez Suarez MD WBC (Bld) [#/Vol] 3.9 10*3/uL Low 4.5-11.5 [facility] Comment on above: Performed By: #### P HVBG, LACTIC, PER, LIP, MG, CBC, CP #### [facility] [address] [place] [address] Candy Cutter Hand: Yaritza Infante MD #### BH #### [facility] [address] [place] [address] Candy Cutter Hand: Rodríguez Suarez MD [facility] 04-10-2024 Albumin [Mass/Vol] 4.0 g/dL 3.5 - 5.2 g/dL [facility] [employer] ALP [Catalytic activity/Vol] 194 U/L High 35 - 104 U/L [facility] ALT [Catalytic activity/Vol] 140 U/L High 0 - 32 U/L [facility] Anion gap [Moles/Vol] 14 mmol/L 7 - 16 mmol/L [facility] [employer] [facility] AST [Catalytic activity/Vol] 76 U/L High 0 - 31 U/L [facility] Bilirubin [Mass/Vol] 0.3 mg/dL 0.0 - 1 .2 mg/dL [facility] [employer] Calcium [Mass/Vol] 10.2 mg/dL 8.6 - 10. 2 mg/dL [facility] Chloride [Moles/Vol] 100 mmol/L 98 - 10 7 mmol/L [facility] CO2 [Moles/Vol] 26 mmol/L 22 - 29 mmol/L [facility] [employer] [facility] Creatinine [Mass/Vol] 0.6 mg/dL 0.50 - 1.00 mg/dL [facility] Est, Glom Filt Rate - PINF [facility] Phone.comLake [facility] Community HospitalPraccel [facility] Comment on above: These results are not intended for use in patients <18 years of age. eGFR results are calculated without a race factor using the 2020 CKD-EPI equation. Careful clinical correlation is recommended, particularly when comparing to results calculated using previous equations. The CKD-EPI equation is less accurate in patients with extremes of muscle mass, extra-renal metabolism of creatine, excessive creatine ingestion, or following therapy that affects renal tubular secretion. Glucose [Mass/Vol] 408 mg/dL High 74 - 99 mg/dL [facility] Potassium [Moles/Vol] 4.1 mmol/L 3.5 - 5.0 mmol/L [facility] Protein [Mass/Vol] 6.6 g/dL 6.4 - 8.3 g/dL [facility] Sodium [Moles/Vol] 140 mmol/L 132 - 146 mmol/L [facility] Urea nitrogen [Mass/Vol] 21 mg/dL High 6 - 20 mg/dL [facility] Comp Metabolic Profon 2023 Albumin [Mass/Vol] 4.0 g/dL Normal 3.5-5.2 [facility] Comment on above: Performed By: #### P HVBG, LACTIC, PER, LIP, MG, CBC, CP #### [facility] [place] [address] Candy Cutter Hand: Yaritza Infante MD #### BH #### [address] [id number] Candy Cutter Hand: Rodríguez Suarez MD Alkaline Phos 194 U/L High 35-104 [facility] Comment on above: Performed By: #### P HVBG, LACTIC, PER, LIP, MG, CBC, CP #### [facility] [place] [address] Candy Cutter Hand: Yaritza Infante MD #### BH #### [place] [address] Candy Cutter Hand: Rodríguez Suarez MD ALT [Catalytic activity/Vol] 140 U/L High 0-32 [facility] Comment on above: Performed By: #### P HVBG, LACTIC, PER, LIP, MG, CBC, CP #### [facility] [place] [address] Candy Cutter Hand: Yaritza Infante MD #### BH #### [address] [address] Candy Cutter Hand: Rodríguez Suarez MD Anion gap [Moles/Vol] 14 mmol/L Normal 7-16 [facility] Comment on above: Performed By: #### P HVBG, LACTIC, PER, LIP, MG, CBC, CP #### [facility] [address] [place] [address] Candy C[employer] Hand: Yaritza Infante MD #### BH #### [place] [address] Candy Cutter Hand: Rodríguez Suarez MD AST [Catalytic activity/Vol] 76 U/L High 0-31 [facility] Comment on above: Performed By: #### P HVBG, LACTIC, PER, LIP, MG, CBC, CP #### [facility] [address] [place] [address] Candy Cutter Hand: Yaritza Infante MD #### BH #### [place] [address] Candy Cutter Hand: Rodríguez Suarez MD Bilirubin [Mass/Vol] 0.3 mg/dL Normal 0.0-1.2 [facility] Comment on above: Performed By: #### P HVBG, LACTIC, PER, LIP, MG, CBC, CP #### [facility] [address] [place] [address] Candy Cutter Hand: Yaritza Infante MD #### BH #### [place] [address] Candy Cutter Hand: Rodríguez Suarez MD Calcium [Mass/Vol] 10.2 mg/dL Normal 8.6-10.2 [facility] Comment on above: Performed By: #### P HVBG, LACTIC, PER, LIP, MG, CBC, CP #### [facility] [address] [place], [place] [id number] Candy Cutter Hand: Yaritza Infante MD #### BH #### [address] [place] [address] Candy Cutter Hand: Rodríguez Suarez MD Chloride [Moles/Vol] 100 mmol/L Normal 98-107 [facility] Comment on above: Performed By: #### P HVBG, LACTIC, PER, LIP, MG, CBC, CP #### [facility] [place] [address] Candy Cutter Hand: Yaritza Infante MD #### BH #### [address] [address] Candy Cutter Hand: Rodríguez Suarez MD CO2 [Moles/Vol] 26 mmol/L Normal 22-29 [facility] Comment on above: Performed By: #### P HVBG, LACTIC, PER, LIP, MG, CBC, CP #### [facility] [address] [place] [address] C[employer] C[employer] Hand: Yaritza Infante MD #### BH #### [address] [address] Candy Cutter Hand: Rodríguez Suarez MD Creatinine [Mass/Vol] 0.6 mg/dL Normal 0.50-1.00 [facility] Comment on above: Performed By: #### P HVBG, LACTIC, PER, LIP, MG, CBC, CP #### [facility] [address] [place] [address] Candy C[employer] Hand: Yaritza Infante MD #### BH #### [place] [address] Candy Cutter Hand: Rodríguez Suarez MD GFR/1.73 sq M.predicted among non-blacks MDRD (S/P/Bld) [Vol rate/Area] mL/min/{1.73_m2} Normal >60 [facility] Comment on above: Result Comment: These results are not intended for use in patients <18 years of age. eGFR results are calculated without a race factor using the 2020 CKD-EPI equation. Careful clinical correlation is recommended, particularly when comparing to results calculated using previous equations. The CKD-EPI equation is less accurate in patients with extremes of muscle mass, extra-renal metabolism of creatine, excessive creatine ingestion, or following therapy that affects renal tubular secretion. Performed By: #### P HVBG, LACTIC, PER, LIP, MG, CBC, CP #### [facility] [place] [address] Candy C[employer] Hand: Yaritza Infante MD #### BH #### [address] [place] [address] Candy Cutter Hand: Rodríguez Suarez MD Glucose [Mass/Vol] 408 mg/dL High 74-99 [facility] Comment on above: Performed By: #### P HVBG, LACTIC, PER, LIP, MG, CBC, CP #### [facility] [address] [place] [address] C[employer]: Yaritza Infante MD #### BH #### [address] [place] [address] Candy Cutter Hand: Rodríguez Suarez MD Potassium [Moles/Vol] 4.1 mmol/L Normal 3.5-5.0 [facility] Comment on above: Performed By: #### P HVBG, LACTIC, PER, LIP, MG, CBC, CP #### [facility] [address] [place] [address] C[employer]: Yaritza Infante MD #### BH #### [address] [place] [address] Candy Cutter Hand: Rodríguez Suarez MD Protein [Mass/Vol] 6.6 g/dL Normal 6.4-8.3 [facility] Comment on above: Performed By: #### P HVBG, LACTIC, PER, LIP, MG, CBC, CP #### [facility] [place] [address] Candy Cutter Hand: Yaritza Infante MD #### BH #### [address] [address] Candy Cutter Hand: Rodríguez Suarez MD Sodium [Moles/Vol] 140 mmol/L Normal 132-146 [facility] Comment on above: Performed By: #### P HVBG, LACTIC, PER, LIP, MG, CBC, CP #### [facility] [place] [address] Candy Cutter Hand: Yaritza Infante MD #### BH #### [address] [address] Candy Cutter Hand: Rodríguez Suarez MD Urea nitrogen [Mass/Vol] 21 mg/dL High 6-20 [facility] Comment on above: Performed By: #### P HVBG, LACTIC, PER, LIP, MG, CBC, CP #### [facility] [address] [place] [address] Candy Cutter Hand: Yaritza Infante MD #### BH #### [address] [address] Candy Cutter Hand: Rodríguez Suarez MD Glucose,Whole BloodOrdered B y: Marilee Hopkins on 04-10-2024 Glucose [Mass/Vol] 222 mg/dL High 74-99 [facility] Glucose,Whole Bloodon 2023 Glucose [Mass/Vol] 413 mg/dL High 74-99 [facility] Lactic Acidon 04-10-2024 Lactate (BldV) [Moles/Vol] 1.8 mmol/L 0.5 - 2.2 mmol/L [facility] Lactate [Moles/Vol] 1.8 mmol/L Normal 0.5-2.2 [facility] Comment on above: Performed By: #### P HVBG, LACTIC, PER, LIP, MG, CBC, CP #### [facility] [place] [address] Candy Cutter Hand: Yaritza Infante MD #### BH #### [place] [phone] Candy Cutter Hand: Rodríguez Suarez MD Lipaseon 04-10-2024 Lipase [Catalytic activity/Vol] 93 U/L High 13 - 60 U/L [facility] Lipase [Catalytic activity/Vol] 93 U/L High 13-60 [facility] Comment on above: Performed By: #### P HVBG, LACTIC, PER, LIP, MG, CBC, CP #### [facility] [address] [place] [id number] Candy C[employer] Hand: Yaritza Infante MD #### BH #### [place] [address] Candy Cutter Hand: Rodríguez Suarez MD No Panel Informationon 04-10 Interpretation and review of laboratory results Abnormal [facility] PH, VENOUSon 04-10-2024 pH, Suman 7.360 7.350 - 7.450 [facility] POCT Glucoseon 04-10-2024 Glucose [Mass/Vol] 222 mg/dL High 74 - 99 mg/dL [facility] Interpretation and review of laboratory results Abnormal [facility] Glucose [Mass/Vol] 413 mg/dL High 74 - 99 mg/dL [facility] Interpretation and review of laboratory results Abnormal [facility] POCT GlucoseOrdered By: Quentin haleigh Hopkins on 04-10-2024 Interpretation and review of laboratory results Normal [facility] QC OK? yes [facility] POCT GlucoseOrdered By: Rob Garcia on 04-10-2024 Glucose [Mass/Vol] 413 mg/dL [facility] Interpretation and review of laboratory results Normal [facility] QC OK? ok [facility] Troponinon 04-10-2024 Troponin I.cardiac High sensitivity method [Mass/Vol] 8 ng/L 0 - 9 ng/L [facility] Comment on above: High Sensitivity Troponin values cannot be compared with other Troponin methodologies. Patients with high levels of Biotin oral intake (i.e >5mg/day) may have falsely decreased Troponin levels. Samples collected within 8 hours of biotin intake may require additional information for diagnosis. Troponin, High Sens 8 ng/L Normal 0-9 [facility] Comment on above: Result Comment: High Sensitivity Troponin values cannot be compared with other Troponin methodologies. Patients with high levels of Biotin oral intake (i.e >5mg/day) may have falsely decreased Troponin levels. Samples collected within 8 hours of biotin intake may require additional information for diagnosis. Performed By: #### P HVBG, LACTIC, PER, LIP, MG, CBC, CP #### [facility] [address] [place] [address] C[employer] C[employer] Hand: Yaritza Infante MD #### BH #### [address] [address] Candy Cutter Hand: Rodríguez Suarez MD Urinalysis w/ Microon 2023 Bacteria 2+ Abnormal NONE [facility] Comment on above: Performed By: #### U AMIC ####[place] [address] [place] [address] Lab Director: Rodríguez Suarez MD Epithelial cells LM Ql (Urine sed) 6 TO 9 Normal [facility] Comment on above: Performed By: #### U AMIC ####[place] [address] [place] [address] Lab Director: Rodríguez Suarez MD Urine RBC's 0 TO 2 Normal R02 [facility] Comment on above: Performed By: #### U AMIC ####[place] [address] [place] [phone] Director: Rodríguez Suarez MD Urine WBC's 0 TO 5 Normal R05 [facility] Comment on above: Performed By: #### U AMIC ####[place] [address] [place] [phone] Director: Rodríguez Suarez MD Bilirubin, SemiQt,Ur Negative Normal NEG [facility] Comment on above: Performed By: #### U AMIC ####[place] [address] [place] [phone] Director: Rodríguez Suarez MD Blood, Urine Negative Normal NEG [facility] Comment on above: Performed By: #### U AMIC ####[place] [address] [place] [phone] Director: Rodríguez Suarez MD Clarity (U) SLIGHTLY CLOUDY Abnormal CLEAR [facility] Comment on above: Performed By: #### U AMIC ####[place] [address] [place] [phone] Director: Rodríguez Suarez MD Color (U) Yellow Normal YEL [facility] Comment on above: Performed By: #### U AMIC ####[place] [address] [place] [address] Lab Director: Rodríguez Suarez MD Glucose Ql (U) >=1000 Abnormal NEG [facility] Comment on above: Performed By: #### U AMIC ####[place] [address] [place] [phone] Director: Rodríguez Suarez MD Ketones Ql (U) Negative Normal NEG [facility] Comment on above: Performed By: #### U AMIC ####[place] [address] [place] [phone] Director: Rodríguez Suarez MD Leukocyte esterase Test strip Ql (U) Negative Normal NEG [facility] Comment on above: Performed By: #### U AMIC ####[place] [address] [place] [phone] Director: Rodríguez Suarez MD Nitrite,Ur Negative Normal NEG [facility] Comment on above: Performed By: #### U AMIC ####[place] [address] [place] [address] Lab Director: Rodríguez Suarez MD PH,Ur 5.0 Normal 5.0-9.0 [facility] Comment on above: Performed By: #### U AMIC ####[place] [address] [place] [phone] Director: Rodríguez Suarez MD Protein Ql (U) Negative Normal NEG [facility] Comment on above: Performed By: #### U AMIC ####[place] [address] [place] [phone] Director: Rodríguez Suarez MD Spec. Smoot,Ur 1.015 Normal 1.005-1.030 [facility] Comment on above: Performed By: #### U AMIC ####[place] [address] [place] [address] Lab Director: Rodríguez Suarez MD Urobilinogen,Ur 0.2 EU/dL Normal 0.0-1.0 [facility] Comment on above: Performed By: #### U [facility] ####[facility] [place], [place] [phone] lab Director: Rodríguez Suarez MD Urinalysis with Microscopico n 04-10-2024 Bacteria LM Ql (Urine sed) 2+ Abnormal None [facility] Bilirubin Ql (U) Negative NEGATIVE [facility] Clarity (U) SLIGHTLY CLOUDY Abnormal Clear [facility] Color (U) Yellow Yellow [facility] Epithelial cells LM.HPF (Urine sed) [#/Area] 6 TO 9 /HPF [facility] Glucose Test strip (U) [Mass/Vol] >=1000 Abnormal NEGATIVE mg/dL [facility] Hemoglobin Auto test strip Ql (U) Negative NEGATIVE [facility] Interpretation and review of laboratory results Abnormal [facility] Ketones (U) [Mass/Vol] Negative NEGATIVE mg/dL [facility] Leukocyte esterase Test strip Ql (U) Negative NEGATIVE [facility] Nitrite Ql (U) Negative NEGATIVE [facility] pH (U) 5.0 [pH] 5.0 - 9.0 [facility] Protein (U) [Mass/Vol] Negative NEGATIVE mg/dL [facility] RBC LM.HPF (Urine sed) [#/Area] 0 TO 2 0 TO 2 /HPF [facility] Specific gravity (U) [Rel density] 1.015 1.005 - 1.030 [facility] Urobilinogen Qn (U) 0.2 {Lionel'U}/dL 0. 0 - 1.0 EU/dL [facility] WBC LM.HPF (Urine sed) [#/Area] 0 TO 5 0 TO 5 /HPF [facility] Venous pHon 04-10-2024 pH (Bld) 7.360 [pH] Normal 7.350-7.450 [facility] Comment on above: Performed By: #### P HVBG, LACTIC, PER, LIP, MG, CBC, CP #### [facility] [place] [address] [employer]andy Cutter Hand: Yaritza Infante MD #### BH #### [facility] [address] [place] [address] [employer]andy Cutter Hand: Rodríguez Suarez MD XR CHEST (2 VW)on 04-10-2024 XR CHEST (2 VW) EXAMINATION: TWO XRAY VIEWS OF THE CHEST 04/10/2024 3:14 pm COMPARISON: None. HISTORY: ORDERING SYSTEM PROVIDED HISTORY: hyperglycemia TECHNOLOGIST PROVIDED HISTORY: Reason for exam:->hyperglycemia FINDINGS: The cardiac silhouette is within normals. I cannot exclude ground-glass airspace disease within the right and left lungs. Within the retrocardiac region there is a small infiltrate. There is no right or left pleural effusion. IMPRESSION: 1. Small infiltrate seen within the retrocardiac region 2. Questionable ground-glass airspace disease within the right and left lungs. Interpreted by: Mike Byrd MD Signed by: Mike Byrd MD 04/10/24 Final result Normal [facility] Comment on above: Order Comment: Waldo pina for exam:->hyperglycemia XR Chest 2 Viewson 1. Small infiltrate seen within the retrocardiac region 2. Questionable ground-glass airspace disease within the right and left lungs. [facility] RIS CONSOLIDATED EXAMINATION: TWO XRAY VIEWS OF THE CHEST 04/10/2024 3:14 pm COMPARISON: None. HISTORY: ORDERING SYSTEM PROVIDED HISTORY: hyperglycemia TECHNOLOGIST PROVIDED HISTORY: Reason for exam:->hyperglycemia FINDINGS: The cardiac silhouette is within normals. I cannot exclude ground-glass airspace disease within the right and left lungs. Within the retrocardiac region there is a small infiltrate. There is no right or left pleural effusion. [facility] RIS CONSOLIDATED Mike Byrd MD - 04/10/2024 EXAMINATION: TWO XRAY VIEWS OF THE CHEST 04/10/2024 3:14 pm COMPARISON: None. HISTORY: ORDERING SYSTEM PROVIDED HISTORY: hyperglycemia TECHNOLOGIST PROVIDED HISTORY: Reason for exam:->hyperglycemia FINDINGS: The cardiac silhouette is within normals. I cannot exclude ground-glass airspace disease within the right and left lungs. Within the retrocardiac region there is a small infiltrate. There is no right or left pleural effusion. IMPRESSION: 1. Small infiltrate seen within the retrocardiac region 2. Questionable ground-glass airspace disease within the right and left lungs. [facility] Radiology Study observation (narrative) [facility] XR Chest 2 ViewsOrdered By: Mike Byrd on 04-10-2024 [facility] Work Phone: Acid Fast Bacillus Cultureon 04-09-2024 tAFBC [facility] Comment on above: Performed By: #### M 600.2000, M100.4001, M600.2200, M100.2000, M300.2000, M300.3000, M100.3000 ####[facility] [address] [place], [address] Acid Fast Bacillus Smear/Flu oron 04-09-2024 tafb Normal [facility] Comment on above: Performed By: #### M 600.2000, M100.4001, M600.2200, M100.2000, M300.2000, M300.3000, M100.3000 ####[facility] [address] [place], [address] Culture, Fungus 8482on 04-09 CUF [facility] Comment on above: Performed By: #### M 600.2000, M100.4001, M600.2200, M100.2000, M300.2000, M300.3000, M100.3000 ####[facility] [address] [place], [address] Fungus Stain 8136on 04-09-20 24 FUNST [facility] Comment on above: Performed By: #### M 600.2000, M100.4001, M600.2200, M100.2000, M300.2000, M300.3000, M100.3000 ####[facility] [address] [place], [place], [id number] Amylaseon 03-24-2024 Amylase [Catalytic activity/Vol] 73 U/L 20 - 100 U/L [facility] Amylase [Catalytic activity/Vol] 73 U/L Normal 20-100 [facility] Comment on above: Performed By: #### P HVBG, LACTIC, PER, LIP, MG, CBC, CP #### [facility] [address] [place] [address] [employer] Hand: Yaritza Infante MD #### BH #### [address] [id number] [employer]: Rodríguez Suarez MD Beta Hydroxybutyrateon 03-24 Beta Hydroxybutyrate 0.08 mmol/L Normal 0.02-0.27 [facility] Comment on above: Performed By: #### P HVBG, LACTIC, PER, LIP, MG, CBC, CP #### [facility] [address] [place] [address] [employer]: Yaritza Infante MD #### BH #### [address] [address] [employer]: Rodríguez Suarez MD CBCon 03-24-2024 Erythrocyte distribution width (RBC) [Ratio] 12.2 % 11.5 - 15.0 % [facility] Hematocrit (Bld) [Volume fraction] 38.2 % 34.0 - 48.0 % [facility] Hemoglobin (Bld) [Mass/Vol] 12.8 g/dL 11.5 - 15.5 g/dL [facility] MCH (RBC) [Entitic mass] 27.6 pg 26.0 - 35.0 pg [facility] MCHC (RBC) [Mass/Vol] 33.5 g/dL 32.0 - 34.5 g/dL [facility] MCV (RBC) [Entitic vol] 82.3 fL 80.0 - 99.9 fL [facility] Platelet mean volume (Bld) [Entitic vol] 11.4 fL 7.0 - 12.0 fL [facility] Platelets (Bld) [#/Vol] 154 10*3/uL [facility] RBC (Bld) [#/Vol] 4.64 10*6/uL 3.50 - 5.5 0 m/uL [facility] WBC other (Bld) [#/Vol] 4.6 [facility] Erythrocyte distribution width (RBC) [Ratio] 12.2 % Normal 11.5-15.0 [facility] Comment on above: Performed By: #### P HVBG, LACTIC, PER, LIP, MG, CBC, CP #### [facility] [address] [place] [address] [employer] C[employer] Hand: Yaritza Infante MD #### #### [place] [address] [employer] C[employer] Hand: Rodríguez Suarez MD Hematocrit (Bld) [Volume fraction] 38.2 % Normal 34.0-48.0 [facility] Comment on above: Performed By: #### P HVBG, LACTIC, PER, LIP, MG, CBC, CP #### [facility] [address] [place] [address] [employer] C[employer] Hand: Yaritza Infante MD #### #### [place] [id number] C[employer] Hand: Rodríguez Suarez MD Hemoglobin (Bld) [Mass/Vol] 12.8 g/dL Normal 11.5-15.5 [facility] Comment on above: Performed By: #### P HVBG, LACTIC, PER, LIP, MG, CBC, CP #### [facility] [place] [facility] [place] [id number] [employer] Hand: Yaritza Infante MD #### BH #### [place] [id number] C[employer] Hand: Rodríguez Suarez MD MCH (RBC) [Entitic mass] 27.6 pg Normal 26.0-35.0 [facility] Comment on above: Performed By: #### P HVBG, LACTIC, PER, LIP, MG, CBC, CP #### [facility] [address] [place] [address] [employer] C[employer] Hand: Yaritza Infante MD #### #### [place] [address] [employer] Hand: Rodríguez Suarez MD [facility] ([facility]) [Mass/Vol] 33.5 g/dL Normal 32.0-34.5 [facility] Comment on above: Performed By: #### P HVBG, LACTIC, PER, LIP, MG, CBC, CP #### [facility] [address] [place] [address] [employer]: Yaritza Infante MD #### BH #### [place] [address] C[employer] C[employer] Hand: Rodríguez Suarez MD MCV (RBC) [Entitic vol] 82.3 fL Normal 80.0-99.9 [facility] Comment on above: Performed By: #### P HVBG, LACTIC, PER, LIP, MG, CBC, CP #### [facility] [address] [place], [place] [id number] [employer]: Yaritza Infante MD #### BH #### [address] [address] C[employer] C[employer] Hand: Rodríguez Suarez MD Platelet mean volume (Bld) [Entitic vol] 11.4 fL Normal 7.0-12.0 [facility] Comment on above: Performed By: #### P HVBG, LACTIC, PER, LIP, MG, CBC, CP #### [facility] [place] [address] [employer] C[employer] Hand: Yaritza Infante MD #### BH #### [place] [address] Candy C[employer] Hand: Rodríguez Suarez MD Platelets (Bld) [#/Vol] 154 10*3/uL Normal 130-450 [facility] Comment on above: Performed By: #### P HVBG, LACTIC, PER, LIP, MG, CBC, CP #### [facility] [place] [address] [employer] C[employer] Hand: Yaritza Infante MD #### BH #### [place] [address] C[employer] C[employer] Hand: Rodríguez Suarez MD RBC (Bld) [#/Vol] 4.64 10*6/uL Normal 3.50-5.50 [facility] Comment on above: Performed By: #### P HVBG, LACTIC, PER, LIP, MG, CBC, CP #### [facility] [place] [address] C[employer] C[employer] Hand: Yaritza Infante MD #### BH #### [address] [address] C[employer] C[employer] Hand: Rodríguez Suarez MD WBC (Bld) [#/Vol] 4.6 10*3/uL Normal 4.5-11.5 [facility] Comment on above: Performed By: #### P HVBG, LACTIC, PER, LIP, MG, CBC, CP #### [facility] [address] [place] [address] [employer]: Yaritza Infante MD #### BH #### [address] [address] [employer]: Rodríguez Suarez MD Comp Metabolic Profon 2023 Albumin [Mass/Vol] 3.4 g/dL Low 3.5-5.2 [facility] Comment on above: Performed By: #### P HVBG, LACTIC, PER, LIP, MG, CBC, CP #### [facility] [address] [place] [address] [employer]: Yaritza Infante MD #### BH #### [address] [address] [employer]: Rodríguez Suarez MD Alkaline Phos 137 U/L High 35-104 [facility] Comment on above: Performed By: #### P HVBG, LACTIC, PER, LIP, MG, CBC, CP #### [facility] [address] [place] [address] [employer]: Yaritza Infante MD #### BH #### [place] [address] [place] [address] Candy Cutter Hand: Rodríguez Suarez MD ALT [Catalytic activity/Vol] 97 U/L High 0-32 [facility] Comment on above: Performed By: #### P HVBG, LACTIC, PER, LIP, MG, CBC, CP #### [facility] [address] [place] [address] [employer]: Yaritza Infante MD #### #### [address] [address] C[employer] Hand: Rodríguez Suarez MD Anion gap [Moles/Vol] 10 mmol/L Normal 7-16 [facility] Comment on above: Performed By: #### P HVBG, LACTIC, PER, LIP, MG, CBC, CP #### [facility] [address] [place] [address] Candy C[employer] Hand: Yaritza Infante MD #### #### [address] [address] Candy Cutter Hand: Rodríguez Suarez MD AST [Catalytic activity/Vol] 77 U/L High 0-31 [facility] Comment on above: Performed By: #### P HVBG, LACTIC, PER, LIP, MG, CBC, CP #### [facility] [place] [address] Candy C[employer] Hand: Yaritza Infante MD #### BH #### [address] [address] Candy Cutter Hand: Rodríguez Suarez MD Bilirubin [Mass/Vol] 0.2 mg/dL Normal 0.0-1.2 [facility] Comment on above: Performed By: #### P HVBG, LACTIC, PER, LIP, MG, CBC, CP #### [facility] [place] [address] Candy Cutter Hand: Yaritza Infante MD #### BH #### [address] [address] Candy Cutter Hand: Rodríguez Suarez MD Calcium [Mass/Vol] 9.2 mg/dL Normal 8.6-10.2 [facility] Comment on above: Performed By: #### P HVBG, LACTIC, PER, LIP, MG, CBC, CP #### [facility] [address] [place] [address] C[employer]: Yaritza Infante MD #### BH #### [address] [address] Candy C[employer] Hand: Rodríguez Suarez MD Chloride [Moles/Vol] 103 mmol/L Normal 98-107 [facility] Comment on above: Performed By: #### P HVBG, LACTIC, PER, LIP, MG, CBC, CP #### [facility] [address] [place] [address] Candy C[employer] Hand: Yaritza Infante MD #### BH #### [place] [address] Candy Cutter Hand: Rodríguez Suarez MD CO2 [Moles/Vol] 26 mmol/L Normal 22-29 [facility] Comment on above: Performed By: #### P HVBG, LACTIC, PER, LIP, MG, CBC, CP #### [facility] [address] [place] [address] Candy C[employer] Hand: Yaritza Infante MD #### BH #### [place] [address] Candy Cutter Hand: Rodríguez Suarez MD Creatinine [Mass/Vol] 0.6 mg/dL Normal 0.50-1.00 [facility] Comment on above: Performed By: #### P HVBG, LACTIC, PER, LIP, MG, CBC, CP #### [facility] [address] [place], [place] [id number] C[employer] C[employer] Hand: Yaritza Infante MD #### BH #### [address] [address] Candy Cutter Hand: Rodríguez Suarez MD GFR/1.73 sq M.predicted among non-blacks MDRD (S/P/Bld) [Vol rate/Area] mL/min/{1.73_m2} Normal >60 [facility] Comment on above: Result Comment: These results are not intended for use in patients <18 years of age. eGFR results are calculated without a race factor using the 2020 CKD-EPI equation. Careful clinical correlation is recommended, particularly when comparing to results calculated using previous equations. The CKD-EPI equation is less accurate in patients with extremes of muscle mass, extra-renal metabolism of creatine, excessive creatine ingestion, or following therapy that affects renal tubular secretion. Performed By: #### P HVBG, LACTIC, PER, LIP, MG, CBC, CP #### [facility] [place] [address] Candy C[employer] Hand: Yaritza Infante MD #### BH #### [address] [address] Candy C[employer] Hand: Rodríguez Suarez MD Glucose [Mass/Vol] 500 mg/dL High 74-99 [facility] Comment on above: Performed By: #### P HVBG, LACTIC, PER, LIP, MG, CBC, CP #### [facility] [place] [address] Candy C[employer] Hand: Yaritza Infante MD #### BH #### [address] [address] Candy C[employer] Hand: Rodríguez Suarez MD Potassium [Moles/Vol] 4.1 mmol/L Normal 3.5-5.0 [facility] Comment on above: Performed By: #### P HVBG, LACTIC, PER, LIP, MG, CBC, CP #### [facility] [place] [address] Candy C[employer] Hand: Yaritza Infante MD #### BH #### [address] [address] Candy C[employer] Hand: Rodríguez Suarez MD Protein [Mass/Vol] 5.9 g/dL Low 6.4-8.3 [facility] Comment on above: Performed By: #### P HVBG, LACTIC, PER, LIP, MG, CBC, CP #### [facility] [address] [place] [address] [employer]: Yaritza Infante MD #### BH #### [address] [address] C[employer] C[employer] Hand: Rodríguez Suarez MD Sodium [Moles/Vol] 139 mmol/L Normal 132-146 [facility] Comment on above: Performed By: #### P HVBG, LACTIC, EPR, LIP, MG, CBC, CP #### [facility] [address] [place] [address] [employer]: Yaritza Infante MD #### BH #### [address] [address] Candy Cutter Hand: Rodríguez Suarez MD Urea nitrogen [Mass/Vol] 18 mg/dL Normal 6-20 [facility] Comment on above: Performed By: #### P HVBG, LACTIC, PER, LIP, MG, CBC, CP #### [facility] [address] [place] [address] C[employer]: Yaritza Infante MD #### BH #### [address] [address] Candy Cutter Hand: Rodríguez Suarez MD [facility] 03-24-2024 Albumin [Mass/Vol] 3.4 g/dL Low 3.5 - 5.2 g/dL [facility] [employer] ALP [Catalytic activity/Vol] 137 U/L High 35 - 104 U/L [facility] ALT [Catalytic activity/Vol] 97 U/L High 0 - 32 U/L [facility] Anion gap [Moles/Vol] 10 mmol/L 7 - 16 mmol/L [facility] AST [Catalytic activity/Vol] 77 U/L High 0 - 31 U/L [facility] Bilirubin [Mass/Vol] 0.2 mg/dL 0.0 - 1 .2 mg/dL [facility] Calcium [Mass/Vol] 9.2 mg/dL 8.6 - 10. 2 mg/dL [facility] Chloride [Moles/Vol] 103 mmol/L 98 - 10 7 mmol/L [facility] CO2 [Moles/Vol] 26 mmol/L 22 - 29 mmol/L [facility] [employer] [facility] Creatinine [Mass/Vol] 0.6 mg/dL 0.50 - 1.00 mg/dL [facility] Est, Glocarolee Barnettt Rate - PINF [facility] Phone.comLake Chelan Community HospitalPraccel [facility] Comment on above: These results are not intended for use in patients <18 years of age. eGFR results are calculated without a race factor using the 2020 CKD-EPI equation. Careful clinical correlation is recommended, particularly when comparing to results calculated using previous equations. The CKD-EPI equation is less accurate in patients with extremes of muscle mass, extra-renal metabolism of creatine, excessive creatine ingestion, or following therapy that affects renal tubular secretion. Glucose [Mass/Vol] 500 mg/dL High 74 - 99 mg/dL [facility] [employer] Potassium [Moles/Vol] 4.1 mmol/L 3.5 - 5.0 mmol/L [facility] Protein [Mass/Vol] 5.9 g/dL Low 6.4 - 8.3 g/dL [facility] [employer] Sodium [Moles/Vol] 139 mmol/L 132 - 146 mmol/L [facility] Urea nitrogen [Mass/Vol] 18 mg/dL 6 - 20 mg/dL [facility] Lactic Acidon 03-24-2024 Lactate (BldV) [Moles/Vol] 2.0 mmol/L 0.5 - 2.2 mmol/L [facility] Lactate [Moles/Vol] 2.0 mmol/L Normal 0.5-2.2 [facility] Comment on above: Performed By: #### P HVBG, LACTIC, PER, LIP, MG, CBC, CP #### [facility] [place], [place] [id number] C[employer] C[employer] Hand: Yaritza Infante MD #### BH #### [place] [id number] Candy Cutter Hand: Rodríguez Suarez MD Lipaseon 03-24-2024 Lipase [Catalytic activity/Vol] 65 U/L High 13 - 60 U/L [facility] Lipase [Catalytic activity/Vol] 65 U/L High 13-60 [facility] Comment on above: Performed By: #### P HVBG, LACTIC, PER, LIP, MG, CBC, CP #### [facility] [address] [place], [place] [phone] C[employer] Hand: Yaritza Infante MD #### BH #### [place] [address] Candy Cutter Hand: Rodríguez Suarez MD Magnesiumon 03-24-2024 Magnesium [Mass/Vol] 1.7 mg/dL 1.6 - 2 .6 mg/dL [facility] Magnesium [Mass/Vol] 1.7 mg/dL Normal 1.6-2.6 [facility] Comment on above: Performed By: #### P HVBG, LACTIC, PER, LIP, MG, CBC, CP #### [facility] [address] [place] [address] Candy Cutter Hand: Yaritza Infante MD #### #### [address] [phone] C[employer] C[employer] Hand: Rodríguez Suarez MD No Panel Informationon 03-24 Interpretation and review of laboratory results Abnormal [facility] PH, VENOUSon 03-24-2024 pH, Suman 7.359 7.350 - 7.450 [facility] POCT GlucoseOrdered By: Scotty or Sharmila on 03-24-2024 Glucose [Mass/Vol] 467 mg/dL [facility] Interpretation and review of laboratory results Normal [facility] QC OK? y [facility] POCT Glucoseon 03-24-2024 Glucose [Mass/Vol] 467 mg/dL High 74 - 99 mg/dL [facility] Interpretation and review of laboratory results Abnormal [facility] Urinalysis w/ Microon 2023 Bacteria 1+ Abnormal NONE [facility] Comment on above: Performed By: #### P HVBG, LACTIC, PER, LIP, MG, CBC, CP #### [facility] [place] [facility] [address] [place] [address] C[employer] C[employer] Hand: Yaritza Infante MD #### #### [place] [address] Candy Cutter Hand: Rodríguez Suarez MD Epithelial cells LM Ql (Urine sed) 3 to 5 Normal [facility] Comment on above: Performed By: #### P HVBG, LACTIC, PER, LIP, MG, CBC, CP #### [facility] [address] [place], [place] [phone] [employer]: Yaritza Infante MD #### #### [address] [place] [address] Candy Cutter Hand: Rodríguez Suarez MD Urine RBC's 0 TO 2 Normal R02 [facility] Comment on above: Performed By: #### P HVBG, LACTIC, PER, LIP, MG, CBC, CP #### [facility] [address] [place] [address] [employer]: Yaritza Infante MD #### BH #### [address] [place] [address] Candy C[employer] Hand: Rodríguez Suarez MD Urine WBC's 10 TO 20 Abnormal R05 [facility] Comment on above: Performed By: #### P HVBG, LACTIC, PER, LIP, MG, CBC, CP #### [facility] [address] [place] [address] C[employer] C[employer] Hand: Yaritza Infante MD #### BH #### [address] [place] [address] Candy C[employer] Hand: Rodríguez Suarez MD Bilirubin, SemiQt,Ur Negative Normal NEG [facility] Comment on above: Performed By: #### P HVBG, LACTIC, PER, LIP, MG, CBC, CP #### [facility] [address] [place] [address] [employer]: Yaritza Infante MD #### BH #### [address] [place] [address] C[employer] C[employer] Hand: Rodríguez Suarez MD Blood, Urine Negative Normal NEG [facility] Comment on above: Performed By: #### P HVBG, LACTIC, PER, LIP, MG, CBC, CP #### [facility] [address] [place] [address] [employer]: Yaritza Infante MD #### BH #### [address] [place] [address] Candy Cutter Hand: Rodríguez Suarez MD Clarity (U) Clear Normal CLEAR [facility] Comment on above: Performed By: #### P HVBG, LACTIC, PER, LIP, MG, CBC, CP #### [facility] [place] [address] [employer]: Yaritza Infante MD #### BH #### [place] [address] Candy C[employer] Hand: Rodríguez Suarez MD Color (U) Yellow Normal YEL [facility] Comment on above: Performed By: #### P HVBG, LACTIC, PER, LIP, MG, CBC, CP #### [facility] [place] [address] [employer]: Yaritza Infante MD #### BH #### [address] [place] [address] [employer] Hand: Rodríguez Suarez MD Glucose Ql (U) >=1000 Abnormal NEG [facility] Comment on above: Performed By: #### P HVBG, LACTIC, PER, LIP, MG, CBC, CP #### [facility] [place] [address] [employer]: Yaritza Infante MD #### BH #### [address] [place] [address] [employer] Hand: Rodríguez Suarez MD Ketones Ql (U) Negative Normal NEG [facility] Comment on above: Performed By: #### P HVBG, LACTIC, PER, LIP, MG, CBC, CP #### [facility] [place] [address] [employer]: Yaritza Infante MD #### BH #### [address] [address] C[employer] Hand: Rodríguez Suarez MD Leukocyte esterase Test strip Ql (U) TRACE Abnormal NEG [facility] Comment on above: Performed By: #### P HVBG, LACTIC, PER, LIP, MG, CBC, CP #### [facility] [address] [place] [address] [employer]: Yaritza Infante MD #### BH #### [address] [address] C[employer] Hand: Rodríguez Suarez MD Nitrite,Ur Negative Normal NEG [facility] Comment on above: Performed By: #### P HVBG, LACTIC, PER, LIP, MG, CBC, CP #### [facility] [address] [place] [address] [employer]: Yaritza Infante MD #### BH #### [address] [place] [address] [employer] Hand: Rodríguez Suarez MD PH,Ur 6.0 Normal 5.0-9.0 [facility] Comment on above: Performed By: #### P HVBG, LACTIC, PER, LIP, MG, CBC, CP #### [facility] [address] [place] [address] [employer]: Yaritza Infante MD #### BH #### [address] [address] C[employer]: Rodríguez Suarez MD Protein Ql (U) Negative Normal NEG [facility] Comment on above: Performed By: #### P HVBG, LACTIC, PER, LIP, MG, CBC, CP #### [facility] [address] [place] [address] [employer]: Yaritza Infante MD #### #### [place] [address] [employer]: Rodríguez Suarez MD Spec. Smoot,Ur 1.010 Normal 1.005-1.030 [facility] Comment on above: Performed By: #### P HVBG, LACTIC, PER, LIP, MG, CBC, CP #### [facility] [address] [place] [address] [employer]: Yaritza Infante MD #### #### [place] [address] [employer]: Rodríguez Suarez MD Urobilinogen,Ur 0.2 EU/dL Normal 0.0-1.0 [facility] Comment on above: Performed By: #### P HVBG, LACTIC, PER, LIP, MG, CBC, CP #### [facility] [address] [place] [place] [address] Candy Cutter Hand: Yaritza Infante MD #### BH #### [place] [address] Candy Cutter Hand: Rodríugez Suarez MD Urinalysis with Microscopico n 03-24-2024 Bacteria LM Ql (Urine sed) 1+ Abnormal None [facility] Bilirubin Ql (U) Negative NEGATIVE [facility] Clarity (U) Clear Clear [facility] Color (U) Yellow Yellow [facility] Epithelial cells LM.HPF (Urine sed) [#/Area] 3 to 5 /HPF [facility] Glucose Test strip (U) [Mass/Vol] >=1000 Abnormal NEGATIVE mg/dL [facility] Hemoglobin Auto test strip Ql (U) Negative NEGATIVE [facility] Interpretation and review of laboratory results Abnormal [facility] Ketones (U) [Mass/Vol] Negative NEGATIVE mg/dL [facility] Leukocyte esterase Test strip Ql (U) TRACE Abnormal NEGATIVE [facility] Nitrite Ql (U) Negative NEGATIVE [facility] pH (U) 6.0 [pH] 5.0 - 9.0 [facility] Protein (U) [Mass/Vol] Negative NEGATIVE mg/dL [facility] RBC LM.HPF (Urine sed) [#/Area] 0 TO 2 0 TO 2 /HPF [facility] Specific gravity (U) [Rel density] 1.010 1.005 - 1.030 [facility] Urobilinogen Qn (U) 0.2 {Lionel'U}/dL 0. 0 - 1.0 EU/dL [facility] WBC LM.HPF (Urine sed) [#/Area] 10 TO 20 Abnormal 0 TO 5 /HPF [facility] Venous pHon 03-24-2024 pH (Bld) 7.359 [pH] Normal 7.350-7.450 [facility] Comment on above: Performed By: #### P HVBG, LACTIC, PER, LIP, MG, CBC, CP #### [facility] [address] [place] [address] Candy Cutter Hand: Yaritza Infante MD #### #### [address] [address] Candy Cutter Hand: Rodríguez Suarez MD Complement C3on 03-05-2024 COMP C3 107 mg/dL Normal 82-167 [facility] Comment on above: Result Comment: Perf ormed at: CB - [facility] [address] [id number] Director: Dave Peters PhD, Phone: [phone] Performed By: #### L 3100.5800, L3100.5700 ####[facility] [address] [place], [address] Complement C4on 03-05-2024 COMPLEMENT, C4 22 mg/dL Normal 12-38 [facility] Comment on above: Performed By: #### L 3100.5800, L3100.5700 ####[facility] [address] [place], [address] Culture, Anaerobic Any Sourc rashmi 03-01-2024 CUAN collected in or bone culture right proximal phalyn No growth in 5 days. Normal [facility] Comment on above: Performed By: #### M 600.2000, M100.4001, M600.2200, M100.2000, M300.2000, M300.3000, M100.3000 ####[facility] [address] [place], [address] Basic Metabolic Profile (BMP )on 02-29-2024 BUN/CRE 14.9 RATIO Normal 10-20 [facility] Comment on above: Performed By: #### L 500.2500 ####[facility] [address] [place], [address] CA,Total 8.4 mg/dL Low 8.5-10.1 [facility] Comment on above: Performed By: #### L 500.2500 ####[facility] [address] [place], [address] Chloride [Moles/Vol] 110 mmol/L High 98-107 [facility] Comment on above: Performed By: #### L 500.2500 ####[facility] [address] [place], [address] CO2 [Moles/Vol] 25.0 mmol/L Normal 21.0-32.0 [facility] Comment on above: Performed By: #### L 500.2500 ####[facility] [address] [place], [address] Creatinine [Mass/Vol] 2.69 mg/dL High 0.55-1.02 [facility] Comment on above: Result Comment: The validity of the calculated GFR GFRAA in patients over70 years has not been determined. Clinical correlation isessential. Performed By: #### L 500.2500 ####[facility] [address] [place], [address] ECRCL 24.02 ml/min Normal [facility] Comment on above: Performed By: #### L 500.2500 ####[facility] [address] [place], [address] EST GFR - AA 24 mL/min Low >60 [facility] Comment on above: Result Comment: Afri can Slovenian GFR Calc Performed By: #### L 500.2500 ####[facility] [address] [place], [address] GAP 3 Low 5-15 [facility] Comment on above: Performed By: #### L 500.2500 ####[facility] [address] [place], [address] GFR/1.73 sq M.predicted among non-blacks MDRD (S/P/Bld) [Vol rate/Area] 20 mL/min/{1.73_m2} Low >60 [facility] Comment on above: Result Comment: Non- GFR Calc Performed By: #### L 500.2500 ####[facility] [address] [place], [address] Glucose [Mass/Vol] 342 mg/dL High 74-106 [facility] Comment on above: Result Comment: Gluc ose result greater than or equal to 200 mg/dLsuggests DIABETES MELLITUS per A.D.A. criteria. Performed By: #### L 500.2500 ####[facility] [address] [place], [address] Potassium [Moles/Vol] 5.1 mmol/L Normal 3.5-5.1 [facility] Comment on above: Performed By: #### L 500.2500 ####[facility] [address] [place], [address] Sodium [Moles/Vol] 138 mmol/L Normal 136-145 [facility] Comment on above: Performed By: #### L 500.2500 ####[facility] [address] [place], [address] Urea nitrogen [Mass/Vol] 40 mg/dL High 7-18 [facility] Comment on above: Performed By: #### L 500.2500 ####[facility] [address] [place], [address] Bedside Glucoseon 02-29-2024 FINGERSTICK GLU 328 mg/dL High 74-106 [facility] Comment on above: Result Comment: DELLA COX OF PATIENT CARE PER NURSING PROTOCOL Performed By: #### L 501.080 ####[facility] [address] [place], [address] Discharge Instructionon 02-13 Discharge Instruction Normal [facility] Basic Metabolic Profile (BMP )on 02-28-2024 BUN/CRE 17.4 RATIO Normal 10-20 [facility] Comment on above: Performed By: #### L 500.2500 ####[facility] [address] [place], [address] CA,Total 8.5 mg/dL Normal 8.5-10.1 [facility] Comment on above: Performed By: #### L 500.2500 ####[facility] [address] [place], [address] Chloride [Moles/Vol] 114 mmol/L High 98-107 [facility] Comment on above: Performed By: #### L 500.2500 ####[facility] [address] [place], [address] CO2 [Moles/Vol] 25.0 mmol/L Normal 21.0-32.0 [facility] Comment on above: Performed By: #### L 500.2500 ####[facility] [address] [place], [address] Creatinine [Mass/Vol] 2.70 mg/dL High 0.55-1.02 [facility] Comment on above: Result Comment: The validity of the calculated GFR GFRAA in patients over70 years has not been determined. Clinical correlation isessential. Performed By: #### L 500.2500 ####[facility] [address] [place], [address] ECRCL 23.93 ml/min Normal [facility] Comment on above: Performed By: #### L 500.2500 ####[facility] [address] [place], [address] EST GFR - AA 24 mL/min Low >60 [facility] Comment on above: Result Comment: Afri can Slovenian GFR Calc Performed By: #### L 500.2500 ####[facility] [address] [place], [address] GAP 3 Low 5-15 [facility] Comment on above: Performed By: #### L 500.2500 ####[facility] [address] [place], [address] GFR/1.73 sq M.predicted among non-blacks MDRD (S/P/Bld) [Vol rate/Area] 20 mL/min/{1.73_m2} Low >60 [facility] Comment on above: Result Comment: Non- GFR Calc Performed By: #### L 500.2500 ####[facility] [address] [place], [address] Glucose [Mass/Vol] 90 mg/dL Normal 74-106 [facility] Comment on above: Performed By: #### L 500.2500 ####[facility] [address] [place], [address] Potassium [Moles/Vol] 4.6 mmol/L Normal 3.5-5.1 [facility] Comment on above: Performed By: #### L 500.2500 ####[facility] [address] [place], [address] Sodium [Moles/Vol] 142 mmol/L Normal 136-145 [facility] Comment on above: Performed By: #### L 500.2500 ####[facility] [address] [place], [address] Urea nitrogen [Mass/Vol] 47 mg/dL High 7-18 [facility] Comment on above: Performed By: #### L 500.2500 ####[facility] [address] [place], [address] Bedside Glucoseon 02-28-2024 FINGERSTICK GLU 158 mg/dL High 74-106 [facility] Comment on above: Result Comment: DELLA GEMENT OF PATIENT CARE PER NURSING PROTOCOL Performed By: #### L 501.080 ####[facility] [address] [place], [address] FINGERSTICK GLU 182 mg/dL High 74-106 [facility] Comment on above: Result Comment: DELLA GEMENT OF PATIENT CARE PER NURSING PROTOCOL Performed By: #### L 501.080 ####[facility] [address] [place], [address] FINGERSTICK GLU 303 mg/dL High 74-106 [facility] Comment on above: Result Comment: DELLA GEMENT OF PATIENT CARE PER NURSING PROTOCOL Performed By: #### L 501.080 ####[facility] [address] [place], [address] FINGERSTICK GLU 194 mg/dL High 74-106 [facility] Comment on above: Result Comment: DELLA GEMENT OF PATIENT CARE PER NURSING PROTOCOL Performed By: #### L 501.080 ####[facility] [address] [place], [address] CBC W/Diff, Automatedon 11- Absolute Lymph 1.40 X10 3/uL Normal 0.83-4.51 [facility] Comment on above: Performed By: #### L 100.0100 ####[facility] [address] [place], [address] Absolute Neut 2.7 X10 3/uL Normal 2.0-7.7 [facility] Comment on above: Performed By: #### L 100.0100 ####[facility] [address] [place], [address] Basophils/100 WBC (Bld) 0.4 % Normal 0-1 [facility] Comment on above: Performed By: #### L 100.0100 ####[facility] [address] [place], [address] Eosinophils/100 WBC (Bld) 2.8 % Normal 0-5 [facility] Comment on above: Performed By: #### L 100.0100 ####[facility] [address] [place], [address] Erythrocyte distribution width (RBC) [Ratio] 13.2 % Normal 11.6-14.6 [facility] Comment on above: Performed By: #### L 100.0100 ####[facility] [address] [place], [address] Hematocrit (Bld) [Volume fraction] 37.8 % Normal 37-47 [facility] Comment on above: Performed By: #### L 100.0100 ####[facility] [address] [place], [address] Hemoglobin (Bld) [Mass/Vol] 12.3 g/dL Normal 12.0-15.0 [facility] Comment on above: Performed By: #### L 100.0100 ####[facility] [address] [place], [address] IG% 1.400 High 0.0-0.9 [facility] Comment on above: Result Comment: IG% - Immature Granulocytes (promyelocytes, myelocytes andmetamyelocytes) > 1% indicates that a LEFT SHIFT is Present. Performed By: #### L 100.0100 ####[facility] [address] [place], [address] Lymphocytes/100 WBC (Bld) 27.5 % Normal 19-41 [facility] Comment on above: Performed By: #### L 100.0100 ####[facility] [address] [place], [address] MCH (RBC) [Entitic mass] 28.5 pg Normal 27.0-32.0 [facility] Comment on above: Performed By: #### L 100.0100 ####[facility] [address] [place], [address] MCHC (RBC) [Mass/Vol] 32.5 g/dL Normal 32-36 [facility] Comment on above: Performed By: #### L 100.0100 ####[facility] [address] [place], [address] MCV (RBC) [Entitic vol] 87.5 fL Normal 81-99 [facility] Comment on above: Performed By: #### L 100.0100 ####[facility] [address] [place], [address] Monocytes/100 WBC (Bld) 15.7 % High 0-10 [facility] Comment on above: Performed By: #### L 100.0100 ####[facility] [address] [place], [address] Neutrophils/100 WBC (Bld) 52.2 % Normal 47-70 [facility] Comment on above: Performed By: #### L 100.0100 ####[facility] [address] [place], [address] Nucleated RBC (Bld) [#/Vol] 0 10*3/uL Normal 0-5 [facility] Comment on above: Performed By: #### L 100.0100 ####[facility] [address] [place], [address] Platelet mean volume (Bld) [Entitic vol] 10.4 fL Normal 6.2-12.0 [facility] Comment on above: Performed By: #### L 100.0100 ####[facility] [address] [place], [address] Platelets (Bld) [#/Vol] 156 10*3/uL Normal 150-450 [facility] Comment on above: Performed By: #### L 100.0100 ####[facility] [address] [place], [address] RBC (Bld) [#/Vol] 4.32 10*6/uL Normal 4.2-5.4 [facility] Comment on above: Performed By: #### L 100.0100 ####[facility] [address] [place], [address] RDW SD 41.7 fl Normal 35.1-43.9 [facility] Comment on above: Performed By: #### L 100.0100 ####[facility] [address] [place], [address] WBC (Bld) [#/Vol] 5.1 10*3/uL Normal 4.4-11.0 [facility] Comment on above: Performed By: #### L 100.0100 ####[facility] [address] [place], [address] Basic Metabolic Profile (BMP )on 02-27-2024 BUN/CRE 16.9 RATIO Normal 10-20 [facility] Comment on above: Performed By: #### L 500.2500 ####[facility] [address] [place], [address] CA,Total 8.4 mg/dL Low 8.5-10.1 [facility] Comment on above: Performed By: #### L 500.2500 ####[facility] [address] [place], [address] Chloride [Moles/Vol] 109 mmol/L High 98-107 [facility] Comment on above: Performed By: #### L 500.2500 ####[facility] [address] [place], [address] CO2 [Moles/Vol] 26.0 mmol/L Normal 21.0-32.0 [facility] Comment on above: Performed By: #### L 500.2500 ####[facility] [address] [place], [address] Creatinine [Mass/Vol] 2.95 mg/dL High 0.55-1.02 [facility] Comment on above: Result Comment: The validity of the calculated GFR GFRAA in patients over70 years has not been determined. Clinical correlation isessential. Performed By: #### L 500.2500 ####[facility] [address] [place], [address] ECRCL 21.91 ml/min Normal [facility] Comment on above: Performed By: #### L 500.2500 ####[facility] [address] [place], [address] EST GFR - AA 21 mL/min Low >60 [facility] Comment on above: Result Comment: Afri can Slovenian GFR Calc Performed By: #### L 500.2500 ####[facility] [address] [place], [address] GAP 3 Low 5-15 [facility] Comment on above: Performed By: #### L 500.2500 ####[facility] [address] [place], [address] GFR/1.73 sq M.predicted among non-blacks MDRD (S/P/Bld) [Vol rate/Area] 18 mL/min/{1.73_m2} Low >60 [facility] Comment on above: Result Comment: Non- GFR Calc Performed By: #### L 500.2500 ####[facility] [address] [place], [address] Glucose [Mass/Vol] 354 mg/dL High 74-106 [facility] Comment on above: Result Comment: Gluc ose result greater than or equal to 200 mg/dLsuggests DIABETES MELLITUS per A.D.A. criteria. Performed By: #### L 500.2500 ####[facility] [address] [place], [address] Potassium [Moles/Vol] 4.9 mmol/L Normal 3.5-5.1 [facility] Comment on above: Performed By: #### L 500.2500 ####[facility] [address] [place], [address] Sodium [Moles/Vol] 138 mmol/L Normal 136-145 [facility] Comment on above: Performed By: #### L 500.2500 ####[facility] [address] [place], [address] Urea nitrogen [Mass/Vol] 50 mg/dL High 7-18 [facility] Comment on above: Performed By: #### L 500.2500 ####[facility] [address] [place], [address] Bedside Glucoseon 02-27-2024 FINGERSTICK GLU 248 mg/dL High 74-106 [facility] Comment on above: Result Comment: DELLA GEMENT OF PATIENT CARE PER NURSING PROTOCOL Performed By: #### L 501.080 ####[facility] [address] [place], [address] FINGERSTICK GLU 352 mg/dL High 74-106 [facility] Comment on above: Result Comment: DELLA GEMENT OF PATIENT CARE PER NURSING PROTOCOL Performed By: #### L 501.080 ####[facility] [address] [place], [address] FINGERSTICK GLU 216 mg/dL High 74-106 [facility] Comment on above: Result Comment: DELLA GEMENT OF PATIENT CARE PER NURSING PROTOCOL Performed By: #### L 501.080 ####[facility] [address] [place], [address] Consultation - Nephrologyon 02-27-2024 Consultation - Nephrology Normal [facility] Creatinine, Urineon 02-27-20 24 URINE CREAT 29.20 mg/dL Normal NO RANGE EST. [facility] Comment on above: Performed By: #### L 502.0300, L400.0001, L500.9400 ####[facility] [address] [place], [address] Kidney and Bladderon 024 Kidney and Bladder Normal [facility] Protein, Urine (Random)on Protein (U) [Mass/Vol] 16.2 mg/dL High <11.9 [facility] Comment on above: Performed By: #### L 501.1930 ####[facility] [address] [place], [address] Urinalysis, Completeon 02-26 BACTERIA RARE Normal None Seen [facility] Comment on above: Order Comment: CLEAN CATCH Performed By: #### L 502.0300, L400.0001, L500.9400 ####[facility] [address] [place], [address] RBC 0-5 SEEN Normal 0-5 [facility] Comment on above: Order Comment: CLEAN CATCH Performed By: #### L 502.0300, L400.0001, L500.9400 ####[facility] [address] [place], [address] WBC 5-10 SEEN Normal 0-5 [facility] Comment on above: Order Comment: CLEAN CATCH Performed By: #### L 502.0300, L400.0001, L500.9400 ####[facility] [address] [place], [address] EPI,TRANSITION 0-5 SEEN Normal 0-5 [facility] Comment on above: Order Comment: CLEAN CATCH Performed By: #### L 502.0300, L400.0001, L500.9400 ####[facility] [address] [place], [address] EPI,SQUAMOUS 10-25 SEEN Normal 5-10 [facility] Comment on above: Order Comment: CLEAN CATCH Performed By: #### L 502.0300, L400.0001, L500.9400 ####[facility] [address] [place], [address] Mucus Ql (Urine sed) 0 SEEN Normal [facility] Comment on above: Order Comment: CLEAN CATCH Performed By: #### L 502.0300, L400.0001, L500.9400 ####[facility] [address] [place], [address] BACTERIA Normal None Seen [facility] Comment on above: Order Comment: CLEAN CATCH Result Comment: ESTEBAN GED DATE ON ORIGINAL ORDER Performed By: #### L 400.0001 ####[facility] [address] [place], [address] BILIRUBIN URINE Normal Negative [facility] Comment on above: Order Comment: CLEAN CATCH Result Comment: ESTEBAN GED DATE ON ORIGINAL ORDER Performed By: #### L 400.0001 ####[facility] [address] [place], [address] Clarity (U) Normal Clear [facility] Comment on above: Order Comment: CLEAN CATCH Result Comment: ESTEBAN GED DATE ON ORIGINAL ORDER Performed By: #### L 400.0001 ####[facility] [address] [place], [address] Color (U) Normal Yellow [facility] Comment on above: Order Comment: CLEAN CATCH Result Comment: ESTEBAN GED DATE ON ORIGINAL ORDER Performed By: #### L 400.0001 ####[facility] [address] [place], [address] EPI,SQUAMOUS Normal 5-10 [facility] Comment on above: Order Comment: CLEAN CATCH Result Comment: ESTEBAN GED DATE ON ORIGINAL ORDER Performed By: #### L 400.0001 ####[facility] [address] [place], [address] GLUCOSE, UR Normal Normal [facility] Comment on above: Order Comment: CLEAN CATCH Result Comment: ESTEBAN GED DATE ON ORIGINAL ORDER Performed By: #### L 400.0001 ####[facility] [address] [place], [address] KETONE UR Normal Negative [facility] Comment on above: Order Comment: CLEAN CATCH Result Comment: ESTEBAN GED DATE ON ORIGINAL ORDER Performed By: #### L 400.0001 ####[facility] [address] [place], [address] LEUK ESTERASE Normal Negative [facility] Comment on above: Order Comment: CLEAN CATCH Result Comment: ESTEBAN GED DATE ON ORIGINAL ORDER Performed By: #### L 400.0001 ####[facility] [address] [place], [address] Mucus Ql (Urine sed) Normal [facility] Comment on above: Order Comment: CLEAN CATCH Result Comment: ESTEBAN GED DATE ON ORIGINAL ORDER Performed By: #### L 400.0001 ####[facility] [address] [place], [address] Nitrite Ql (U) Normal Negative [facility] Comment on above: Order Comment: CLEAN CATCH Result Comment: ESTEBAN GED DATE ON ORIGINAL ORDER Performed By: #### L 400.0001 ####[facility] [address] [place], [address] OCCULT BLOOD-UR Normal Negative [facility] Comment on above: Order Comment: CLEAN CATCH Result Comment: ESTEBAN GED DATE ON ORIGINAL ORDER Performed By: #### L 400.0001 ####[facility] [address] [place], [address] pH UR Normal 5.0 - 8.0 [facility] Comment on above: Order Comment: CLEAN CATCH Result Comment: ESTEBAN GED DATE ON ORIGINAL ORDER Performed By: #### L 400.0001 ####[facility] [address] [place], [address] PROT DIPSTX Normal Negative [facility] Comment on above: Order Comment: CLEAN CATCH Result Comment: ESTEBAN GED DATE ON ORIGINAL ORDER Performed By: #### L 400.0001 ####[facility] [address] [place], [address] RBC Normal 0-5 [facility] Comment on above: Order Comment: CLEAN CATCH Result Comment: ESTEBAN GED DATE ON ORIGINAL ORDER Performed By: #### L 400.0001 ####[facility] [address] [place], [address] SP.GR. DIPSTX Normal 1.002-1.030 [facility] Comment on above: Order Comment: CLEAN CATCH Result Comment: ESTEBAN GED DATE ON ORIGINAL ORDER Performed By: #### L 400.0001 ####[facility] [address] [place], [address] UR Preservative Normal [facility] Comment on above: Order Comment: CLEAN CATCH Result Comment: ESTEBAN GED DATE ON ORIGINAL ORDER Performed By: #### L 400.0001 ####[facility] [address] [place], [address] UROBILI Normal Normal [facility] Comment on above: Order Comment: CLEAN CATCH Result Comment: ESTEBAN GED DATE ON ORIGINAL ORDER Performed By: #### L 400.0001 ####[facility] [address] [place], [address] WBC Normal 0-5 [facility] Comment on above: Order Comment: CLEAN CATCH Result Comment: ESTEBAN GED DATE ON ORIGINAL ORDER Performed By: #### L 400.0001 ####[facility] [address] [place], [address] Urine Electrolytes- Randomon 02-27-2024 Sodium (U) [Moles/Vol] 80 mmol/L Normal Not Establ. [facility] Comment on above: Result Comment: DUPL ICATE ORDER Performed By: #### L 502.0300, L400.0001, L500.9400 ####[facility] [address] [place], [address] UR CL 90 mmol/L Normal Not Establ. [facility] Comment on above: Result Comment: DUPL ICATE ORDER Performed By: #### L 502.0300, L400.0001, L500.9400 ####[facility] [address] [place], [address] UR K 18.0 mmol/L Normal Not Establ. [facility] Comment on above: Result Comment: DUPL ICATE ORDER Performed By: #### L 502.0300, L400.0001, L500.9400 ####[facility] [address] [place], [address] Basic Metabolic Profile (BMP )on 02-26-2024 BUN/CRE 19.1 RATIO Normal 10-20 [facility] Comment on above: Performed By: #### L 100.0100, L500.2500 ####[facility] [address] [place], [address] CA,Total 8.3 mg/dL Low 8.5-10.1 [facility] Comment on above: Performed By: #### L 100.0100, L500.2500 ####[facility] [address] [place], [address] Chloride [Moles/Vol] 110 mmol/L High 98-107 [facility] Comment on above: Performed By: #### L 100.0100, L500.2500 ####[facility] [address] [place], [address] CO2 [Moles/Vol] 24.0 mmol/L Normal 21.0-32.0 [facility] Comment on above: Performed By: #### L 100.0100, L500.2500 ####[facility] [address] [place], [address] Creatinine [Mass/Vol] 2.57 mg/dL High 0.55-1.02 [facility] Comment on above: Result Comment: The validity of the calculated GFR GFRAA in patients over70 years has not been determined. Clinical correlation isessential. Performed By: #### L 100.0100, L500.2500 ####[facility] [address] [place], [address] ECRCL 25.15 ml/min Normal [facility] Comment on above: Performed By: #### L 100.0100, L500.2500 ####[facility] [address] [place], [address] EST GFR - AA 25 mL/min Low >60 [facility] Comment on above: Result Comment: Afri can Slovenian GFR Calc Performed By: #### L 100.0100, L500.2500 ####[facility] [address] [place], [address] GAP 7 Normal 5-15 [facility] Comment on above: Performed By: #### L 100.0100, L500.2500 ####[facility] [address] [place], [address] GFR/1.73 sq M.predicted among non-blacks MDRD (S/P/Bld) [Vol rate/Area] 21 mL/min/{1.73_m2} Low >60 [facility] Comment on above: Result Comment: Non- GFR Calc Performed By: #### L 100.0100, L500.2500 ####[facility] [address] [place], [address] Glucose [Mass/Vol] 224 mg/dL High 74-106 [facility] Comment on above: Result Comment: Gluc ose result greater than or equal to 200 mg/dLsuggests DIABETES MELLITUS per A.D.A. criteria. Performed By: #### L 100.0100, L500.2500 ####[facility] [address] [place], [address] Potassium [Moles/Vol] 4.5 mmol/L Normal 3.5-5.1 [facility] Comment on above: Performed By: #### L 100.0100, L500.2500 ####[facility] [address] [place], [address] Sodium [Moles/Vol] 141 mmol/L Normal 136-145 [facility] Comment on above: Performed By: #### L 100.0100, L500.2500 ####[facility] [address] [place], [address] Urea nitrogen [Mass/Vol] 49 mg/dL High 7-18 [facility] Comment on above: Performed By: #### L 100.0100, L500.2500 ####[facility] [address] [place], [address] Bedside Glucoseon 02-26-2024 FINGERSTICK GLU 144 mg/dL High 74-106 [facility] Comment on above: Result Comment: DELLA GEMENT OF PATIENT CARE PER NURSING PROTOCOL Performed By: #### L 501.080 ####[facility] [address] [place], [address] FINGERSTICK GLU 238 mg/dL High 74-106 [facility] Comment on above: Result Comment: DELLA GEMENT OF PATIENT CARE PER NURSING PROTOCOL Performed By: #### L 501.080 ####[facility] [address] [place], [address] FINGERSTICK GLU 342 mg/dL High 74-106 [facility] Comment on above: Result Comment: DELLA GEMENT OF PATIENT CARE PER NURSING PROTOCOL Performed By: #### L 501.080 ####[facility] [address] [place], [address] FINGERSTICK GLU 194 mg/dL High 74-106 [facility] Comment on above: Result Comment: DELLA GEMENT OF PATIENT CARE PER NURSING PROTOCOL Performed By: #### L 501.080 ####[facility] [address] [place], [address] CBC W/Diff, Automatedon 11- Absolute Lymph 0.92 X10 3/uL Normal 0.83-4.51 [facility] Comment on above: Performed By: #### L 100.0100, L500.2500 ####[facility] [address] [place], [address] Absolute Neut 3.9 X10 3/uL Normal 2.0-7.7 [facility] Comment on above: Performed By: #### L 100.0100, L500.2500 ####[facility] [address] [place], [address] Basophils/100 WBC (Bld) 0.5 % Normal 0-1 [facility] Comment on above: Performed By: #### L 100.0100, L500.2500 ####[facility] [address] [place], [address] Eosinophils/100 WBC (Bld) 2.2 % Normal 0-5 [facility] Comment on above: Performed By: #### L 100.0100, L500.2500 ####[facility] [address] [place], [address] Erythrocyte distribution width (RBC) [Ratio] 12.7 % Normal 11.6-14.6 [facility] Comment on above: Performed By: #### L 100.0100, L500.2500 ####[facility] [address] [place], [address] Hematocrit (Bld) [Volume fraction] 37.8 % Normal 37-47 [facility] Comment on above: Performed By: #### L 100.0100, L500.2500 ####[facility] [address] [place], [address] Hemoglobin (Bld) [Mass/Vol] 12.8 g/dL Normal 12.0-15.0 [facility] Comment on above: Performed By: #### L 100.0100, L500.2500 ####[facility] [address] [place], [address] IG% 1.000 High 0.0-0.9 [facility] Comment on above: Result Comment: IG% - Immature Granulocytes (promyelocytes, myelocytes andmetamyelocytes) > 1% indicates that a LEFT SHIFT is Present. Performed By: #### L 100.0100, L500.2500 ####[facility] [address] [place], [address] Lymphocytes/100 WBC (Bld) 15.4 % Low 19-41 [facility] Comment on above: Performed By: #### L 100.0100, L500.2500 ####[facility] [address] [place], [address] MCH (RBC) [Entitic mass] 29.0 pg Normal 27.0-32.0 [facility] Comment on above: Performed By: #### L 100.0100, L500.2500 ####[facility] [address] [place], [address] MCHC (RBC) [Mass/Vol] 33.9 g/dL Normal 32-36 [facility] Comment on above: Performed By: #### L 100.0100, L500.2500 ####[facility] [address] [place], [address] MCV (RBC) [Entitic vol] 85.5 fL Normal 81-99 [facility] Comment on above: Performed By: #### L 100.0100, L500.2500 ####[facility] [address] [place], [address] Monocytes/100 WBC (Bld) 16.6 % High 0-10 [facility] Comment on above: Performed By: #### L 100.0100, L500.2500 ####[facility] [address] [place], [address] Neutrophils/100 WBC (Bld) 64.3 % Normal 47-70 [facility] Comment on above: Performed By: #### L 100.0100, L500.2500 ####[facility] [address] [place], [address] Nucleated RBC (Bld) [#/Vol] 0 10*3/uL Normal 0-5 [facility] Comment on above: Performed By: #### L 100.0100, L500.2500 ####[facility] [address] [place], [address] Platelet mean volume (Bld) [Entitic vol] 11.4 fL Normal 6.2-12.0 [facility] Comment on above: Performed By: #### L 100.0100, L500.2500 ####[facility] [address] [place], [address] Platelets (Bld) [#/Vol] 152 10*3/uL Normal 150-450 [facility] Comment on above: Performed By: #### L 100.0100, L500.2500 ####[facility] [address] [place], [address] RBC (Bld) [#/Vol] 4.42 10*6/uL Normal 4.2-5.4 [facility] Comment on above: Performed By: #### L 100.0100, L500.2500 ####[facility] [address] [place], [address] RDW SD 39.5 fl Normal 35.1-43.9 [facility] Comment on above: Performed By: #### L 100.0100, L500.2500 ####[facility] [address] [place], [address] WBC (Bld) [#/Vol] 6.0 10*3/uL Normal 4.4-11.0 [facility] Comment on above: Performed By: #### L 100.0100, L500.2500 ####[facility] [address] [place], [address] Consultation - Infectious Dx on 02-26-2024 Consultation - Infectious Dx Normal [facility] Vancomycin, Random Levelon 1 04-27-2023 VANCO, RANDOM 28.6 ug/mL High 0.0-15.0 [facility] Comment on above: Result Comment: VANC OMYCIN STANDARD DRUG THERAPY: CRITICAL VALUE IS > 15.0 mg/LVANCOMYCIN HIGH INTENSITY THERAPY: CRITICAL VALUE IS > 20.0 mg/LPLEASE CONTACT PHARMACY SERVICES (#6525) FOR INTERPRETATIONOF RESULTS. THIS RESULT DOES NOT REPRESENT A PEAK OR TROUGHLEVEL FOR THIS DRUG. Performed By: #### L 501.8850 ####[facility] [address] [place], [address] Wound Cultureon 02-26-2024 WC collected in or bone culture right proximal phalyn No growth aerobically. Normal [facility] Comment on above: Performed By: #### M 600.2000, M100.4001, M600.2200, M100.2000, M300.2000, M300.3000, M100.3000 ####[facility] [address] [place], [address] Basic Metabolic Profile (BMP )on 02-25-2024 BUN/CRE 16.7 RATIO Normal 10-20 [facility] Comment on above: Performed By: #### L 500.2500, L100.0100 ####[facility] [address] [place], [address] CA,Total 8.4 mg/dL Low 8.5-10.1 [facility] Comment on above: Performed By: #### L 500.2500, L100.0100 ####[facility] [address] [place], [address] Chloride [Moles/Vol] 105 mmol/L Normal 98-107 [facility] Comment on above: Performed By: #### L 500.2500, L100.0100 ####[facility] [address] [place], [address] CO2 [Moles/Vol] 26.0 mmol/L Normal 21.0-32.0 [facility] Comment on above: Performed By: #### L 500.2500, L100.0100 ####[facility] [address] [place], [address] Creatinine [Mass/Vol] 1.80 mg/dL High 0.55-1.02 [facility] Comment on above: Result Comment: The validity of the calculated GFR GFRAA in patients over70 years has not been determined. Clinical correlation isessential. Performed By: #### L 500.2500, L100.0100 ####[facility] [address] [place], [address] ECRCL 35.42 ml/min Normal [facility] Comment on above: Performed By: #### L 500.2500, L100.0100 ####[facility] [address] [place], [address] EST GFR - AA 38 mL/min Low >60 [facility] Comment on above: Result Comment: Afri can Slovenian GFR Calc Performed By: #### L 500.2500, L100.0100 ####[facility] [address] [place], [address] GAP 6 Normal 5-15 [facility] Comment on above: Performed By: #### L 500.2500, L100.0100 ####[facility] [address] [place], [address] GFR/1.73 sq M.predicted among non-blacks MDRD (S/P/Bld) [Vol rate/Area] 31 mL/min/{1.73_m2} Low >60 [facility] Comment on above: Result Comment: Non- GFR Calc Performed By: #### L 500.2500, L100.0100 ####[facility] [address] [place], [address] Glucose [Mass/Vol] 298 mg/dL High 74-106 [facility] Comment on above: Result Comment: Gluc ose result greater than or equal to 200 mg/dLsuggests DIABETES MELLITUS per A.D.A. criteria. Performed By: #### L 500.2500, L100.0100 ####[facility] [address] [place], [address] Potassium [Moles/Vol] 4.6 mmol/L Normal 3.5-5.1 [facility] Comment on above: Performed By: #### L 500.2500, L100.0100 ####[facility] [address] [place], [address] Sodium [Moles/Vol] 137 mmol/L Normal 136-145 [facility] Comment on above: Performed By: #### L 500.2500, L100.0100 ####[facility] [address] [place], [address] Urea nitrogen [Mass/Vol] 30 mg/dL High 7-18 [facility] Comment on above: Performed By: #### L 500.2500, L100.0100 ####[facility] [address] [place], [address] Bedside Glucoseon 02-25-2024 FINGERSTICK GLU 457 mg/dL Invalid Interpretation Code 74-106 [facility] Comment on above: Result Comment: Repe at TestMANAGEMENT OF PATIENT CARE PER NURSING PROTOCOL Performed By: #### L 501.080 ####[facility] [address] [place], [address] FINGERSTICK GLU > 500 Invalid Interpretation Code 74-106 [facility] Comment on above: Result Comment: DELLA GEMENT OF PATIENT CARE PER NURSING PROTOCOL Performed By: #### L 501.080 ####[facility] [address] [place], [address] FINGERSTICK GLU 201 mg/dL High 74-106 [facility] Comment on above: Result Comment: DELLA GEMENT OF PATIENT CARE PER NURSING PROTOCOL Performed By: #### L 501.080 ####[facility] [address] [place], [address] FINGERSTICK GLU 180 mg/dL High 74-106 [facility] Comment on above: Result Comment: DELLA GEMENT OF PATIENT CARE PER NURSING PROTOCOL Performed By: #### L 501.080 ####[facility] [address] [place], [address] FINGERSTICK GLU 408 mg/dL High 74-106 [facility] Comment on above: Result Comment: DELLA GEMENT OF PATIENT CARE PER NURSING PROTOCOL Performed By: #### L 501.080 ####[facility] [address] [place], [address] FINGERSTICK GLU 294 mg/dL High 74-106 [facility] Comment on above: Result Comment: DELLA COX OF PATIENT CARE PER NURSING PROTOCOL Performed By: #### L 501.080 ####[facility] [address] [place], [address] CBC W/Diff, Automatedon 11 Absolute Lymph 0.80 X10 3/uL Low 0.83-4.51 [facility] Comment on above: Performed By: #### L 500.2500, L100.0100 ####[facility] [address] [place], [address] Absolute Neut 5.8 X10 3/uL Normal 2.0-7.7 [facility] Comment on above: Performed By: #### L 500.2500, L100.0100 ####[facility] [address] [place], [address] Basophils/100 WBC (Bld) 0.3 % Normal 0-1 [facility] Comment on above: Performed By: #### L 500.2500, L100.0100 ####[facility] [address] [place], [address] Eosinophils/100 WBC (Bld) 1.0 % Normal 0-5 [facility] Comment on above: Performed By: #### L 500.2500, L100.0100 ####[facility] [address] [place], [address] Erythrocyte distribution width (RBC) [Ratio] 12.9 % Normal 11.6-14.6 [facility] Comment on above: Performed By: #### L 500.2500, L100.0100 ####[facility] [address] [place], [address] Hematocrit (Bld) [Volume fraction] 41.8 % Normal 37-47 [facility] Comment on above: Performed By: #### L 500.2500, L100.0100 ####[facility] [address] [place], [address] Hemoglobin (Bld) [Mass/Vol] 13.5 g/dL Normal 12.0-15.0 [facility] Comment on above: Performed By: #### L 500.2500, L100.0100 ####[facility] [address] [place], [address] IG% 1.000 High 0.0-0.9 [facility] Comment on above: Result Comment: IG% - Immature Granulocytes (promyelocytes, myelocytes andmetamyelocytes) > 1% indicates that a LEFT SHIFT is Present. Performed By: #### L 500.2500, L100.0100 ####[facility] [address] [place], [address] Lymphocytes/100 WBC (Bld) 10.2 % Low 19-41 [facility] Comment on above: Performed By: #### L 500.2500, L100.0100 ####[facility] [address] [place], [address] MCH (RBC) [Entitic mass] 28.2 pg Normal 27.0-32.0 [facility] Comment on above: Performed By: #### L 500.2500, L100.0100 ####[facility] [address] [place], [address] MCHC (RBC) [Mass/Vol] 32.3 g/dL Normal 32-36 [facility] Comment on above: Performed By: #### L 500.2500, L100.0100 ####[facility] [address] [place], [address] MCV (RBC) [Entitic vol] 87.4 fL Normal 81-99 [facility] Comment on above: Performed By: #### L 500.2500, L100.0100 ####[facility] [address] [place], [address] Monocytes/100 WBC (Bld) 12.9 % High 0-10 [facility] Comment on above: Performed By: #### L 500.2500, L100.0100 ####[facility] [address] [place], [address] Neutrophils/100 WBC (Bld) 74.6 % High 47-70 [facility] Comment on above: Performed By: #### L 500.2500, L100.0100 ####[facility] [address] [place], [address] Nucleated RBC (Bld) [#/Vol] 0 10*3/uL Normal 0-5 [facility] Comment on above: Performed By: #### L 500.2500, L100.0100 ####[facility] [address] [place], [address] Platelet mean volume (Bld) [Entitic vol] 10.9 fL Normal 6.2-12.0 [facility] Comment on above: Performed By: #### L 500.2500, L100.0100 ####[facility] [address] [place], [address] Platelets (Bld) [#/Vol] 153 10*3/uL Normal 150-450 [facility] Comment on above: Performed By: #### L 500.2500, L100.0100 ####[facility] [address] [place], [address] RBC (Bld) [#/Vol] 4.78 10*6/uL Normal 4.2-5.4 [facility] Comment on above: Performed By: #### L 500.2500, L100.0100 ####[facility] [address] [place], [address] RDW SD 41.1 fl Normal 35.1-43.9 [facility] Comment on above: Performed By: #### L 500.2500, L100.0100 ####[facility] [address] [place], [address] WBC (Bld) [#/Vol] 7.8 10*3/uL Normal 4.4-11.0 [facility] Comment on above: Performed By: #### L 500.2500, L100.0100 ####[facility] [address] [place], [address] Glucoseon 02-25-2024 Glucose [Mass/Vol] 488 mg/dL Invalid Interpretation Code 74-106 [facility] Comment on above: Order Comment: Comme nts: BG [id number] Result Comment: Crit ical Result(s) Called at: 22:52:36 02/25/2024 by: JENNIFER JOE. Results read back by same.Glucose result greater than or equal to 200 mg/dLsuggests DIABETES MELLITUS per A.D.A. criteria. Performed By: #### L 501.0100 ####[facility] [address] [place], [address] Gram Stainon 02-25-2024 GS collected in or bone culture right proximal phalyn Gram Stain Rare Red Blood Cells Rare White Blood Cells No organisms seen Normal [facility] Comment on above: Performed By: #### M 600.2000, M100.4001, M600.2200, M100.2000, M300.2000, M300.3000, M100.3000 ####[facility] [address] [place], [address] MR/BQHQECSS2iz 02-25-2024 MR/POSTOPAN2 Normal [facility] Vancomycin, Trough Levelon 1 04-26-2023 VANCO, TROUGH 37.5 ug/mL High 5.0-15.0 [facility] Comment on above: Order Comment: Comme nts: DRAW 30 MIN PRIOR TO [id number] Result Comment: VANC OMYCIN STANDARED DRUG THERAPY TROUGH LEVEL: 5.0 - 15.0 mg/LVANCOMYCIN HIGH INTENSITY THERAPY TROUGH LEVEL: 15.0 - 20.0 mg/LHigh Intensity therapy recommended for serious lifethreatening infections include:- Rqkqhgpail-Ezotsncndngc-Iaftadcdr (Ventilator/Healtcare Associated)-SepsisPLEASE CONTACT PHARMACY SERVICES (#2422) FOR INTERPRETATIONOF RESULTS. Performed By: #### L 501.8820 ####[facility] [address] [place], [address] 12 Lead EKGon 02-24-2024 12 Lead EKG Normal [facility] Basic Metabolic Profile (BMP )on 02-24-2024 BUN/CRE 24.6 RATIO High 02-01 [facility] Comment on above: Performed By: #### L 100.0100, L500.2500 ####[facility] [address] [place], [address] CA,Total 8.6 mg/dL Normal 8.5-10.1 [facility] Comment on above: Performed By: #### L 100.0100, L500.2500 ####[facility] [address] [place], [address] Chloride [Moles/Vol] 104 mmol/L Normal 98-107 [facility] Comment on above: Performed By: #### L 100.0100, L500.2500 ####[facility] [address] [place], [address] CO2 [Moles/Vol] 29.0 mmol/L Normal 21.0-32.0 [facility] Comment on above: Performed By: #### L 100.0100, L500.2500 ####[facility] [address] [place], [address] Creatinine [Mass/Vol] 0.73 mg/dL Normal 0.55-1.02 [facility] Comment on above: Result Comment: The validity of the calculated GFR GFRAA in patients over70 years has not been determined. Clinical correlation isessential. Performed By: #### L 100.0100, L500.2500 ####[facility] [address] [place], [address] ECRCL 80.20 ml/min Normal [facility] Comment on above: Performed By: #### L 100.0100, L500.2500 ####[facility] [address] [place], [address] EST GFR - AA 107 mL/min Normal >60 [facility] Comment on above: Result Comment: Afri can Slovenian GFR Calc Performed By: #### L 100.0100, L500.2500 ####[facility] [address] [place], [address] GAP 5 Normal 5-15 [facility] Comment on above: Performed By: #### L 100.0100, L500.2500 ####[facility] [address] [place], [address] GFR/1.73 sq M.predicted among non-blacks MDRD (S/P/Bld) [Vol rate/Area] 88 mL/min/{1.73_m2} Normal >60 [facility] Comment on above: Result Comment: Non- GFR Calc Performed By: #### L 100.0100, L500.2500 ####[facility] [address] [place], [address] Glucose [Mass/Vol] 435 mg/dL High 74-106 [facility] Comment on above: Result Comment: Gluc ose result greater than or equal to 200 mg/dLsuggests DIABETES MELLITUS per A.D.A. criteria. Performed By: #### L 100.0100, L500.2500 ####[facility] [address] [place], [address] Potassium [Moles/Vol] 3.8 mmol/L Normal 3.5-5.1 [facility] Comment on above: Performed By: #### L 100.0100, L500.2500 ####[facility] [address] [place], [address] Sodium [Moles/Vol] 138 mmol/L Normal 136-145 [facility] Comment on above: Performed By: #### L 100.0100, L500.2500 ####[facility] [address] [place], [address] Urea nitrogen [Mass/Vol] 18 mg/dL Normal 7-18 [facility] Comment on above: Performed By: #### L 100.0100, L500.2500 ####[facility] [address] [place], [address] Bedside Glucoseon 02-24-2024 FINGERSTICK GLU 393 mg/dL High [address] [place] [address] Comment on above: Result Comment: DELLA GEMENT OF PATIENT CARE PER NURSING PROTOCOL Performed By: #### L 501.080 ####[facility] [address] [place], [address] FINGERSTICK GLU 264 mg/dL High [address] [place] [address] Comment on above: Result Comment: DELLA GEMENT OF PATIENT CARE PER NURSING PROTOCOL Performed By: #### L 501.080 ####[facility] [address] [place], [address] FINGERSTICK GLU 230 mg/dL High [address] [place] [address] Comment on above: Result Comment: DELLA GEMENT OF PATIENT CARE PER NURSING PROTOCOL Performed By: #### L 501.080 ####[facility] [address] [place], [address] FINGERSTICK GLU 229 mg/dL High [address] [place] [address] Comment on above: Result Comment: DELLA GEMENT OF PATIENT CARE PER NURSING PROTOCOL Performed By: #### L 501.080 ####[facility] [address] [place], [address] FINGERSTICK GLU 409 mg/dL High 74-106 [facility] Comment on above: Result Comment: DELLA COX OF PATIENT CARE PER NURSING PROTOCOL Performed By: #### L 501.080 ####[facility] [address] [place], [address] CBC W/Diff, Automatedon 11- Absolute Lymph 1.02 X10 3/uL Normal 0.83-4.51 [facility] Comment on above: Performed By: #### L 100.0100, L500.2500 ####[facility] [address] [place], [address] Absolute Neut 3.4 X10 3/uL Normal 2.0-7.7 [facility] Comment on above: Performed By: #### L 100.0100, L500.2500 ####[facility] [address] [place], [address] Basophils/100 WBC (Bld) 0.4 % Normal 0-1 [facility] Comment on above: Performed By: #### L 100.0100, L500.2500 ####[facility] [address] [place], [address] Eosinophils/100 WBC (Bld) 2.5 % Normal 0-5 [facility] Comment on above: Performed By: #### L 100.0100, L500.2500 ####[facility] [address] [place], [address] Erythrocyte distribution width (RBC) [Ratio] 13.0 % Normal 11.6-14.6 [facility] Comment on above: Performed By: #### L 100.0100, L500.2500 ####[facility] [address] [place], [address] Hematocrit (Bld) [Volume fraction] 40.6 % Normal 37-47 [facility] Comment on above: Performed By: #### L 100.0100, L500.2500 ####[facility] [address] [place], [address] Hemoglobin (Bld) [Mass/Vol] 13.2 g/dL Normal 12.0-15.0 [facility] Comment on above: Performed By: #### L 100.0100, L500.2500 ####[facility] [address] [place], [address] IG% 1.000 High 0.0-0.9 [facility] Comment on above: Result Comment: IG% - Immature Granulocytes (promyelocytes, myelocytes andmetamyelocytes) > 1% indicates that a LEFT SHIFT is Present. Performed By: #### L 100.0100, L500.2500 ####[facility] [address] [place], [address] Lymphocytes/100 WBC (Bld) 19.7 % Normal 19-41 [facility] Comment on above: Performed By: #### L 100.0100, L500.2500 ####[facility] [address] [place], [address] MCH (RBC) [Entitic mass] 28.3 pg Normal 27.0-32.0 [facility] Comment on above: Performed By: #### L 100.0100, L500.2500 ####[facility] [address] [place], [address] MCHC (RBC) [Mass/Vol] 32.5 g/dL Normal 32-36 [facility] Comment on above: Performed By: #### L 100.0100, L500.2500 ####[facility] [address] [place], [address] MCV (RBC) [Entitic vol] 86.9 fL Normal 81-99 [facility] Comment on above: Performed By: #### L 100.0100, L500.2500 ####[facility] [address] [place], [address] Monocytes/100 WBC (Bld) 11.2 % High 0-10 [facility] Comment on above: Performed By: #### L 100.0100, L500.2500 ####[facility] [address] [place], [address] Neutrophils/100 WBC (Bld) 65.2 % Normal 47-70 [facility] Comment on above: Performed By: #### L 100.0100, L500.2500 ####[facility] [address] [place], [address] Nucleated RBC (Bld) [#/Vol] 0 10*3/uL Normal 0-5 [facility] Comment on above: Performed By: #### L 100.0100, L500.2500 ####[facility] [address] [place], [address] Platelet mean volume (Bld) [Entitic vol] 10.8 fL Normal 6.2-12.0 [facility] Comment on above: Performed By: #### L 100.0100, L500.2500 ####[facility] [address] [place], [address] Platelets (Bld) [#/Vol] 160 10*3/uL Normal 150-450 [facility] Comment on above: Performed By: #### L 100.0100, L500.2500 ####[facility] [address] [place], [address] RBC (Bld) [#/Vol] 4.67 10*6/uL Normal 4.2-5.4 [facility] Comment on above: Performed By: #### L 100.0100, L500.2500 ####[facility] [address] [place], [address] RDW SD 40.4 fl Normal 35.1-43.9 [facility] Comment on above: Performed By: #### L 100.0100, L500.2500 ####[facility] [address] [place], [address] WBC (Bld) [#/Vol] 5.2 10*3/uL Normal 4.4-11.0 [facility] Comment on above: Performed By: #### L 100.0100, L500.2500 ####[facility] [address] [place], [address] Decalcification bone/plaqueo n 02-24-2024 Decalcification bone/plaque Normal [facility] Comment on above: Performed By: #### P DEC ####[facility] [address] [place], [address] Foot min 3 Viewson 4 Foot min 3 Views Normal [facility] Hemoglobin A1con 02-24-2024 HbA1c (Bld) [Mass fraction] 11.2 % High 3.8-5.6 [facility] Comment on above: Result Comment: Norm al < 5.7 % Prediabetic 5.7 - 6.4 % Diabetic >or= 6.5 % Please note range changes. Performed By: #### L 501.9985, L300.4310 ####[facility] [address] [place], [address] MR/POSTOP.ANEon 02-24-2024 MR/POSTOP.ANE Normal [facility] Operative Reporton 4 Operative Report Normal [facility] Partial Thromboplast Timeon 02-24-2024 aPTT Coag (Bld) [Time] 30.8 s Normal 24.1-36.2 [facility] Comment on above: Performed By: #### L 501.9985, L300.4310 ####[facility] [address] [place], [address] Urine Drug Screen (VISTA)on 02-24-2024 AMPHETAMINES Negative Normal <1000 ng/mL [facility] Comment on above: Order Comment: NOTIF IED MS3 NURSE YARN INSPECTOR THAT WE DO NOT HAVE A PLAINYELLOW TOP URINE TUBE FOR THIS TESTUNK Performed By: #### L 505.5000 ####[facility] [address] [place], [address] BARBITIURATES Negative Normal < 200 ng/mL [facility] Comment on above: Order Comment: NOTIF [facility] NURSE YARN INSPECTOR THAT WE DO NOT HAVE A PLAINYELLOW TOP URINE TUBE FOR THIS TESTUNK Performed By: #### L 505.5000 ####[facility] [address] [facility] [address] BENZODIAZIPINE Negative Normal < 200 ng/mL [facility] Comment on above: Order Comment: NOTIF [facility] NURSE YARN INSPECTOR THAT WE DO NOT HAVE A PLAINYELLOW TOP URINE TUBE FOR THIS TESTUNK Performed By: #### L 505.5000 ####[facility] [address] [place] [address] COCAINE Negative Normal < 300 ng/mL [facility] Comment on above: Order Comment: NOTIF [place] [address] NURSE YARN INSPECTOR THAT WE DO NOT HAVE A PLAINYELLOW TOP URINE TUBE FOR THIS TESTUNK Performed By: #### L 505.5000 ####[facility] [address] [place] [address] ECSTACY Negative Normal < 500 ng/mL [facility] Comment on above: Order Comment: NOTIF [facility] NURSE YARN INSPECTOR THAT WE DO NOT HAVE A PLAINYELLOW TOP URINE TUBE FOR THIS TESTUNK Performed By: #### L 505.5000 ####[facility] [address] [place] [id number] METHADONE Negative Normal < 300 ng/mL [facility] Comment on above: Order Comment: NOTIF [facility] NURSE YARN INSPECTOR THAT WE DO NOT HAVE A PLAINYELLOW TOP URINE TUBE FOR THIS TESTUNK Performed By: #### L 505.5000 ####[facility] [address] [place] [id number] OPIATES Positive Abnormal < 300 ng/mL [facility] Comment on above: Order Comment: NOTIF D MS3 NURSE YARN INSPECTOR THAT WE DO NOT HAVE A PLAINYELLOW TOP URINE TUBE FOR THIS TESTUNK Performed By: #### L 505.5000 ####[facility] [address] [place], [address] PCP Negative Normal < 25 ng/mL [facility] Comment on above: Order Comment: NOTIF D MS3 NURSE YARN INSPECTOR THAT WE DO NOT HAVE A PLAINYELLOW TOP URINE TUBE FOR THIS TESTUNK Performed By: #### L 505.5000 ####[facility] [address] [place], [address] THC Negative Normal < 50 ng/mL [facility] Comment on above: Order Comment: NOTIF [facility]3 NURSE YARN INSPECTOR THAT WE DO NOT HAVE A PLAINYELLOW TOP URINE TUBE FOR THIS TESTUNK Performed By: #### L 505.5000 ####[facility] [address] [place], [address] VISTA UDS PH 5 Normal [facility] Comment on above: Order Comment: NOTIF [facility]3 NURSE YARN INSPECTOR THAT WE DO NOT HAVE A PLAINYELLOW TOP URINE TUBE FOR THIS TESTUNK Performed By: #### L 505.5000 ####[facility] [address] [place], [address] Wound Cultureon 02-24-2024 WC Normal [facility] Comment on above: Performed By: #### M 100.3000, M100.2000 ####[facility] [address] [place], [address] Basic Metabolic Profile (BMP )on 02-23-2024 BUN/CRE 32.4 RATIO High 02-01 [facility] Comment on above: Performed By: #### L 100.0100, L500.2500 ####[facility] [address] [place], [address] CA,Total 8.5 mg/dL Normal 8.5-10.1 [facility] Comment on above: Performed By: #### L 100.0100, L500.2500 ####[facility] [address] [place], [address] Chloride [Moles/Vol] 108 mmol/L High 98-107 [facility] Comment on above: Performed By: #### L 100.0100, L500.2500 ####[facility] [address] [place], [address] CO2 [Moles/Vol] 29.0 mmol/L Normal 21.0-32.0 [facility] Comment on above: Performed By: #### L 100.0100, L500.2500 ####[facility] [address] [place], [address] Creatinine [Mass/Vol] 0.43 mg/dL Low 0.55-1.02 [facility] Comment on above: Result Comment: The validity of the calculated GFR GFRAA in patients over70 years has not been determined. Clinical correlation isessential. Performed By: #### L 100.0100, L500.2500 ####[facility] [address] [place], [address] ECRCL 136.15 ml/min Normal [facility] Comment on above: Performed By: #### L 100.0100, L500.2500 ####[facility] [address] [place], [address] EST GFR - AA 196 mL/min Normal >60 [facility] Comment on above: Result Comment: Afri can Slovenian GFR Calc Performed By: #### L 100.0100, L500.2500 ####[facility] [address] [place], [address] GAP 5 Normal 5-15 [facility] Comment on above: Performed By: #### L 100.0100, L500.2500 ####[facility] [address] [place], [address] GFR/1.73 sq M.predicted among non-blacks MDRD (S/P/Bld) [Vol rate/Area] 162 mL/min/{1.73_m2} Normal >60 [facility] Comment on above: Result Comment: Non- GFR Calc Performed By: #### L 100.0100, L500.2500 ####[facility] [address] [place], [address] Glucose [Mass/Vol] 198 mg/dL High 74-106 [facility] Comment on above: Result Comment: Fast ing Glucose result greater than or equal to 126 mg/dLsuggests DIABETES MELLITUS per A.D.A. criteria. Performed By: #### L 100.0100, L500.2500 ####[facility] [address] [place], [address] Potassium [Moles/Vol] 3.4 mmol/L Low 3.5-5.1 [facility] Comment on above: Performed By: #### L 100.0100, L500.2500 ####[facility] [address] [place], [address] Sodium [Moles/Vol] 142 mmol/L Normal 136-145 [facility] Comment on above: Performed By: #### L 100.0100, L500.2500 ####[facility] [address] [place], [address] Urea nitrogen [Mass/Vol] 14 mg/dL Normal 7-18 [facility] Comment on above: Performed By: #### L 100.0100, L500.2500 ####[facility] [address] [place], [address] Bedside Glucoseon 02-23-2024 FINGERSTICK GLU 291 mg/dL High 74-106 [facility] Comment on above: Result Comment: DELLA COX OF PATIENT CARE PER NURSING PROTOCOL Performed By: #### L 501.080 ####[facility] [address] [place], [address] FINGERSTICK GLU 330 mg/dL High 74-106 [facility] Comment on above: Result Comment: DELLA GEMENT OF PATIENT CARE PER NURSING PROTOCOL Performed By: #### L 501.080 ####[facility] [address] [place], [address] FINGERSTICK GLU 280 mg/dL High 74-106 [facility] Comment on above: Result Comment: DELLA GEMENT OF PATIENT CARE PER NURSING PROTOCOL Performed By: #### L 501.080 ####[facility] [address] [place], [address] CBC W/Diff, Automatedon 11- 0-4 Absolute Lymph 1.43 X10 3/uL Normal 0.83-4.51 [facility] Comment on above: Performed By: #### L 100.0100, L500.2500 ####[facility] [address] [place], [address] Absolute Neut 2.0 X10 3/uL Normal 2.0-7.7 [facility] Comment on above: Performed By: #### L 100.0100, L500.2500 ####[facility] [address] [place], [address] Basophils/100 WBC (Bld) 1.0 % Normal 0-1 [facility] Comment on above: Performed By: #### L 100.0100, L500.2500 ####[facility] [address] [place], [address] Eosinophils/100 WBC (Bld) 3.8 % Normal 0-5 [facility] Comment on above: Performed By: #### L 100.0100, L500.2500 ####[facility] [address] [place], [address] Erythrocyte distribution width (RBC) [Ratio] 12.9 % Normal 11.6-14.6 [facility] Comment on above: Performed By: #### L 100.0100, L500.2500 ####[facility] [address] [place], [address] Hematocrit (Bld) [Volume fraction] 40.9 % Normal 37-47 [facility] Comment on above: Performed By: #### L 100.0100, L500.2500 ####[facility] [address] [place], [address] Hemoglobin (Bld) [Mass/Vol] 13.4 g/dL Normal 12.0-15.0 [facility] Comment on above: Performed By: #### L 100.0100, L500.2500 ####[facility] [address] [place], [address] IG% 1.700 High 0.0-0.9 [facility] Comment on above: Result Comment: IG% - Immature Granulocytes (promyelocytes, myelocytes andmetamyelocytes) > 1% indicates that a LEFT SHIFT is Present. Performed By: #### L 100.0100, L500.2500 ####[facility] [address] [place], [address] Lymphocytes/100 WBC (Bld) 34.4 % Normal 19-41 [facility] Comment on above: Performed By: #### L 100.0100, L500.2500 ####[facility] [address] [place], [address] MCH (RBC) [Entitic mass] 28.6 pg Normal 27.0-32.0 [facility] Comment on above: Performed By: #### L 100.0100, L500.2500 ####[facility] [address] [place], [address] MCHC (RBC) [Mass/Vol] 32.8 g/dL Normal 32-36 [facility] Comment on above: Performed By: #### L 100.0100, L500.2500 ####[facility] [address] [place], [address] MCV (RBC) [Entitic vol] 87.4 fL Normal 81-99 [facility] Comment on above: Performed By: #### L 100.0100, L500.2500 ####[facility] [address] [place], [address] Monocytes/100 WBC (Bld) 10.1 % High 0-10 [facility] Comment on above: Performed By: #### L 100.0100, L500.2500 ####[facility] [address] [place], [address] Neutrophils/100 WBC (Bld) 49.0 % Normal 47-70 [facility] Comment on above: Performed By: #### L 100.0100, L500.2500 ####[facility] [address] [place], [address] Nucleated RBC (Bld) [#/Vol] 0 10*3/uL Normal 0-5 [facility] Comment on above: Performed By: #### L 100.0100, L500.2500 ####[facility] [address] [place], [address] Platelet mean volume (Bld) [Entitic vol] 10.6 fL Normal 6.2-12.0 [facility] Comment on above: Performed By: #### L 100.0100, L500.2500 ####[facility] [address] [place], [address] Platelets (Bld) [#/Vol] 192 10*3/uL Normal 150-450 [facility] Comment on above: Performed By: #### L 100.0100, L500.2500 ####[facility] [address] [place], [address] RBC (Bld) [#/Vol] 4.68 10*6/uL Normal 4.2-5.4 [facility] Comment on above: Performed By: #### L 100.0100, L500.2500 ####[facility] [address] [place], [address] RDW SD 40.6 fl Normal 35.1-43.9 [facility] Comment on above: Performed By: #### L 100.0100, L500.2500 ####[facility] [address] [place], [address] WBC (Bld) [#/Vol] 4.2 10*3/uL Low 4.4-11.0 [facility] Comment on above: Performed By: #### L 100.0100, L500.2500 ####[facility] [address] [place], [address] Vancomycin, Trough Levelon 1 04-24-2023 VANCO, TROUGH 16.3 ug/mL High 5.0-15.0 [facility] Comment on above: Order Comment: Comme nts: DRAW 30 MIN PRIOR TO [id number] Result Comment: VANC OMYCIN STANDARED DRUG THERAPY TROUGH LEVEL: 5.0 - 15.0 mg/LVANCOMYCIN HIGH INTENSITY THERAPY TROUGH LEVEL: 15.0 - 20.0 mg/LHigh Intensity therapy recommended for serious lifethreatening infections include:- Aamavxogvr-Vuwlkpcfkeml-Rpeobtsqm (Ventilator/Healtcare Associated)-SepsisPLEASE CONTACT PHARMACY SERVICES (#3003) FOR INTERPRETATIONOF RESULTS. Performed By: #### L 749.8820 ####[facility] [address] [place], [address] Basic Metabolic Profile (BMP )on 02-22-2024 BUN/CRE 29.0 RATIO High 02-01 [facility] Comment on above: Performed By: #### L 100.0100, L500.2500 ####[facility] [address] [place], [address] CA,Total 8.6 mg/dL Normal 8.5-10.1 [facility] Comment on above: Performed By: #### L 100.0100, L500.2500 ####[facility] [address] [place], [address] Chloride [Moles/Vol] 108 mmol/L High 98-107 [facility] Comment on above: Performed By: #### L 100.0100, L500.2500 ####[facility] [address] [place], [address] CO2 [Moles/Vol] 28.0 mmol/L Normal 21.0-32.0 [facility] Comment on above: Performed By: #### L 100.0100, L500.2500 ####[facility] [address] [place], [address] Creatinine [Mass/Vol] 0.45 mg/dL Low 0.55-1.02 [facility] Comment on above: Result Comment: The validity of the calculated GFR GFRAA in patients over70 years has not been determined. Clinical correlation isessential. Performed By: #### L 100.0100, L500.2500 ####[facility] [address] [place], [address] ECRCL 130.10 ml/min Normal [facility] Comment on above: Performed By: #### L 100.0100, L500.2500 ####[facility] [address] [place], [address] EST GFR - AA 188 mL/min Normal >60 [facility] Comment on above: Result Comment: Afri can Slovenian GFR Calc Performed By: #### L 100.0100, L500.2500 ####[facility] [address] [place], [address] GAP 4 Low 5-15 [facility] Comment on above: Performed By: #### L 100.0100, L500.2500 ####[facility] [address] [place], [address] GFR/1.73 sq M.predicted among non-blacks MDRD (S/P/Bld) [Vol rate/Area] 156 mL/min/{1.73_m2} Normal >60 [facility] Comment on above: Result Comment: Non- GFR Calc Performed By: #### L 100.0100, L500.2500 ####[facility] [address] [place], [address] Glucose [Mass/Vol] 287 mg/dL High 74-106 [facility] Comment on above: Result Comment: Gluc ose result greater than or equal to 200 mg/dLsuggests DIABETES MELLITUS per A.D.A. criteria. Performed By: #### L 100.0100, L500.2500 ####[facility] [address] [place], [address] Potassium [Moles/Vol] 3.7 mmol/L Normal 3.5-5.1 [facility] Comment on above: Performed By: #### L 100.0100, L500.2500 ####[facility] [address] [place], [address] Sodium [Moles/Vol] 140 mmol/L Normal 136-145 [facility] Comment on above: Performed By: #### L 100.0100, L500.2500 ####[facility] [address] [place], [address] Urea nitrogen [Mass/Vol] 13 mg/dL Normal 7-18 [facility] Comment on above: Performed By: #### L 100.0100, L500.2500 ####[facility] [address] [place], [address] Bedside Glucoseon 02-22-2024 FINGERSTICK GLU 309 mg/dL High 74-106 [facility] Comment on above: Result Comment: DELLA COX OF PATIENT CARE PER NURSING PROTOCOL Performed By: #### L 501.080 ####[facility] [address] [place], [address] FINGERSTICK GLU 297 mg/dL High 74-106 [facility] Comment on above: Result Comment: DELLA GEMENT OF PATIENT CARE PER NURSING PROTOCOL Performed By: #### L 501.080 ####[facility] [address] [place], [address] FINGERSTICK GLU 387 mg/dL High 74-106 [facility] Comment on above: Result Comment: DELLA GEMENT OF PATIENT CARE PER NURSING PROTOCOL Performed By: #### L 501.080 ####[facility] [address] [place], [address] FINGERSTICK GLU 417 mg/dL High 74-106 [facility] Comment on above: Result Comment: DELLA GEMENT OF PATIENT CARE PER NURSING PROTOCOL Performed By: #### L 501.080 ####[facility] [address] [place], [address] CBC W/Diff, Automatedon 11-0 9-4 Absolute Lymph 1.09 X10 3/uL Normal 0.83-4.51 [facility] Comment on above: Performed By: #### L 100.0100, L500.2500 ####[facility] [address] [place], [address] Absolute Neut 2.7 X10 3/uL Normal 2.0-7.7 [facility] Comment on above: Performed By: #### L 100.0100, L500.2500 ####[facility] [address] [place], [address] Basophils/100 WBC (Bld) 0.7 % Normal 0-1 [facility] Comment on above: Performed By: #### L 100.0100, L500.2500 ####[facility] [address] [place], [address] Eosinophils/100 WBC (Bld) 3.1 % Normal 0-5 [facility] Comment on above: Performed By: #### L 100.0100, L500.2500 ####[facility] [address] [place], [address] Erythrocyte distribution width (RBC) [Ratio] 12.7 % Normal 11.6-14.6 [facility] Comment on above: Performed By: #### L 100.0100, L500.2500 ####[facility] [address] [place], [address] Hematocrit (Bld) [Volume fraction] 40.8 % Normal 37-47 [facility] Comment on above: Performed By: #### L 100.0100, L500.2500 ####[facility] [address] [place], [address] Hemoglobin (Bld) [Mass/Vol] 13.6 g/dL Normal 12.0-15.0 [facility] Comment on above: Performed By: #### L 100.0100, L500.2500 ####[facility] [address] [place], [address] IG% 0.900 Normal 0.0-0.9 [facility] Comment on above: Result Comment: IG% - Immature Granulocytes (promyelocytes, myelocytes andmetamyelocytes) > 1% indicates that a LEFT SHIFT is Present. Performed By: #### L 100.0100, L500.2500 ####[facility] [address] [place], [address] Lymphocytes/100 WBC (Bld) 24.2 % Normal 19-41 [facility] Comment on above: Performed By: #### L 100.0100, L500.2500 ####[facility] [address] [place], [address] MCH (RBC) [Entitic mass] 28.8 pg Normal 27.0-32.0 [facility] Comment on above: Performed By: #### L 100.0100, L500.2500 ####[facility] [address] [place], [address] MCHC (RBC) [Mass/Vol] 33.3 g/dL Normal 32-36 [facility] Comment on above: Performed By: #### L 100.0100, L500.2500 ####[facility] [address] [place], [address] MCV (RBC) [Entitic vol] 86.3 fL Normal 81-99 [facility] Comment on above: Performed By: #### L 100.0100, L500.2500 ####[facility] [address] [place], [address] Monocytes/100 WBC (Bld) 10.4 % High 0-10 [facility] Comment on above: Performed By: #### L 100.0100, L500.2500 ####[facility] [address] [place], [address] Neutrophils/100 WBC (Bld) 60.7 % Normal 47-70 [facility] Comment on above: Performed By: #### L 100.0100, L500.2500 ####[facility] [address] [place], [address] Nucleated RBC (Bld) [#/Vol] 0 10*3/uL Normal 0-5 [facility] Comment on above: Performed By: #### L 100.0100, L500.2500 ####[facility] [address] [place], [address] Platelet mean volume (Bld) [Entitic vol] 11.0 fL Normal 6.2-12.0 [facility] Comment on above: Performed By: #### L 100.0100, L500.2500 ####[facility] [address] [place], [address] Platelets (Bld) [#/Vol] 180 10*3/uL Normal 150-450 [facility] Comment on above: Performed By: #### L 100.0100, L500.2500 ####[facility] [address] [place], [address] RBC (Bld) [#/Vol] 4.73 10*6/uL Normal 4.2-5.4 [facility] Comment on above: Performed By: #### L 100.0100, L500.2500 ####[facility] [address] [place], [address] RDW SD 39.8 fl Normal 35.1-43.9 [facility] Comment on above: Performed By: #### L 100.0100, L500.2500 ####[facility] [address] [place], [address] WBC (Bld) [#/Vol] 4.5 10*3/uL Normal 4.4-11.0 [facility] Comment on above: Performed By: #### L 100.0100, L500.2500 ####[facility] [address] [place], [address] Lower Ext Art Exam w/o Exerc shanthi 02-22-2024 Lower Ext Art Exam w/o Exercis Normal [facility] Vancomycin, Trough Levelon 04-23-2023 VANCO, TROUGH 6.9 ug/mL Normal 5.0-15.0 [facility] Comment on above: Order Comment: Comme nts: Trough to be drawn 30 mins prior to scheduled [id number] Result Comment: VANC OMYCIN STANDARED DRUG THERAPY TROUGH LEVEL: 5.0 - 15.0 mg/LVANCOMYCIN HIGH INTENSITY THERAPY TROUGH LEVEL: 15.0 - 20.0 mg/LHigh Intensity therapy recommended for serious lifethreatening infections include:- Shgqbrglwr-Gnkqkcybrnfm-Ylodqpobt (Ventilator/Healtcare Associated)-SepsisPLEASE CONTACT PHARMACY SERVICES (#7827) FOR INTERPRETATIONOF RESULTS. Performed By: #### L 690.2648 ####[facility] [address] [place], [address] Acetone Serumon 02-21-2024 ACETONE SERUM Negative Normal NEG [facility] Comment on above: Performed By: #### L 501.6900 ####[facility] [address] [place], [address] Basic Metabolic Profile (BMP )on 02-21-2024 BUN/CRE 19.6 RATIO Normal 10-20 [facility] Comment on above: Performed By: #### L 501.6710, L503.6005, L101.9900, L500.2500, L300.3900, L100.0100 ####[facility] [address] [place], [address] CA,Total 8.7 mg/dL Normal 8.5-10.1 [facility] Comment on above: Performed By: #### L 501.6710, L503.6005, L101.9900, L500.2500, L300.3900, L100.0100 ####[facility] [address] [place], [address] Chloride [Moles/Vol] 100 mmol/L Normal 98-107 [facility] Comment on above: Performed By: #### L 501.6710, L503.6005, L101.9900, L500.2500, L300.3900, L100.0100 ####[facility] [address] [place], [address] CO2 [Moles/Vol] 27.0 mmol/L Normal 21.0-32.0 [facility] Comment on above: Performed By: #### L 501.6710, L503.6005, L101.9900, L500.2500, L300.3900, L100.0100 ####[facility] [address] [place], [address] Creatinine [Mass/Vol] 0.76 mg/dL Normal 0.55-1.02 [facility] Comment on above: Result Comment: The validity of the calculated GFR GFRAA in patients over70 years has not been determined. Clinical correlation isessential. Performed By: #### L 501.6710, L503.6005, L101.9900, L500.2500, L300.3900, L100.0100 ####[facility] [address] [place], [address] ECRCL 77.03 ml/min Normal [facility] Comment on above: Performed By: #### L 501.6710, L503.6005, L101.9900, L500.2500, L300.3900, L100.0100 ####[facility] [address] [place], [address] EST GFR - AA 102 mL/min Normal >60 [facility] Comment on above: Result Comment: Afri can Slovenian GFR Calc Performed By: #### L 501.6710, L503.6005, L101.9900, L500.2500, L300.3900, L100.0100 ####[facility] [address] [place], [phone] GAP 7 Normal 5-15 [facility] Comment on above: Performed By: #### L 501.6710, L503.6005, L101.9900, L500.2500, L300.3900, L100.0100 ####[facility] [address] [place], [address] GFR/1.73 sq M.predicted among non-blacks MDRD (S/P/Bld) [Vol rate/Area] 84 mL/min/{1.73_m2} Normal >60 [facility] Comment on above: Result Comment: Non- GFR Calc Performed By: #### L 501.6710, L503.6005, L101.9900, L500.2500, L300.3900, L100.0100 ####[facility] [address] [place], [address] Glucose [Mass/Vol] 478 mg/dL Invalid Interpretation Code 74-106 [facility] Comment on above: Result Comment: Crit ical Result(s) Called at: 00:24:56 02/21/2024 by:Sylvester MARTIN2. Results read back by same.Glucose result greater than or equal to 200 mg/dLsuggests DIABETES MELLITUS per A.D.A. criteria. Performed By: #### L 501.6710, L503.6005, L101.9900, L500.2500, L300.3900, L100.0100 ####[facility] [address] [place], [address] Potassium [Moles/Vol] 3.6 mmol/L Normal 3.5-5.1 [facility] Comment on above: Performed By: #### L 501.6710, L503.6005, L101.9900, L500.2500, L300.3900, L100.0100 ####[facility] [address] [place], [address] Sodium [Moles/Vol] 134 mmol/L Low 136-145 [facility] Comment on above: Performed By: #### L 501.6710, L503.6005, L101.9900, L500.2500, L300.3900, L100.0100 ####[facility] [address] [place], [address] Urea nitrogen [Mass/Vol] 15 mg/dL Normal 7-18 [facility] Comment on above: Performed By: #### L 501.6710, L503.6005, L101.9900, L500.2500, L300.3900, L100.0100 ####[facility] [address] [place], [address] Bedside Glucoseon 02-21-2024 FINGERSTICK GLU 357 mg/dL High [address] [place] [address] Comment on above: Result Comment: DELLA GEMENT OF PATIENT CARE PER NURSING PROTOCOL Performed By: #### L 501.080 ####[facility] [address] [place], [address] FINGERSTICK GLU 311 mg/dL High [address] [place] [address] Comment on above: Result Comment: DELLA GEMENT OF PATIENT CARE PER NURSING PROTOCOL Performed By: #### L 501.080 ####[facility] [address] [place], [address] FINGERSTICK GLU 213 mg/dL High [address] [place] [address] Comment on above: Result Comment: DELLA GEMENT OF PATIENT CARE PER NURSING PROTOCOL Performed By: #### L 501.080 ####[facility] [address] [place], [address] FINGERSTICK GLU 408 mg/dL High [address] [place] [address] Comment on above: Result Comment: DELLA GEMENT OF PATIENT CARE PER NURSING PROTOCOL Performed By: #### L 501.080 ####[facility] [address] [place], [address] FINGERSTICK GLU 376 mg/dL [address] Comment on above: Result Comment: DELLA GEMENT OF PATIENT CARE PER NURSING PROTOCOL Performed By: #### L 501.080 ####[facility] [address] [place], [address] CBC W/Diff, Automatedon 11-0 Absolute Lymph 1.48 X10 3/uL Normal 0.83-4.51 [facility] Comment on above: Performed By: #### L 500.4050, L100.0100, L501.5200, L501.2300 ####[facility] [address] [place], [address] Absolute Neut 3.8 X10 3/uL Normal 2.0-7.7 [facility] Comment on above: Performed By: #### L 500.4050, L100.0100, L501.5200, L501.2300 ####[facility] [address] [place], [address] Basophils/100 WBC (Bld) 0.5 % Normal 0-1 [facility] Comment on above: Performed By: #### L 500.4050, L100.0100, L501.5200, L501.2300 ####[facility] [address] [place], [address] Eosinophils/100 WBC (Bld) 2.4 % Normal 0-5 [facility] Comment on above: Performed By: #### L 500.4050, L100.0100, L501.5200, L501.2300 ####[facility] [address] [place], [address] Erythrocyte distribution width (RBC) [Ratio] 12.7 % Normal 11.6-14.6 [facility] Comment on above: Performed By: #### L 500.4050, L100.0100, L501.5200, L501.2300 ####[facility] [address] [place], [address] Hematocrit (Bld) [Volume fraction] 42.3 % Normal 37-47 [facility] Comment on above: Performed By: #### L 500.4050, L100.0100, L501.5200, L501.2300 ####[facility] [address] [place], [address] Hemoglobin (Bld) [Mass/Vol] 13.6 g/dL Normal 12.0-15.0 [facility] Comment on above: Performed By: #### L 500.4050, L100.0100, L501.5200, L501.2300 ####[facility] [address] [place], [address] IG% 0.500 Normal 0.0-0.9 [facility] Comment on above: Result Comment: IG% - Immature Granulocytes (promyelocytes, myelocytes andmetamyelocytes) > 1% indicates that a LEFT SHIFT is Present. Performed By: #### L 500.4050, L100.0100, L501.5200, L501.2300 ####[facility] [address] [place], [address] Lymphocytes/100 WBC (Bld) 24.0 % Normal 19-41 [facility] Comment on above: Performed By: #### L 500.4050, L100.0100, L501.5200, L501.2300 ####[facility] [address] [place], [address] MCH (RBC) [Entitic mass] 28.2 pg Normal 27.0-32.0 [facility] Comment on above: Performed By: #### L 500.4050, L100.0100, L501.5200, L501.2300 ####[facility] [address] [place], [address] MCHC (RBC) [Mass/Vol] 32.2 g/dL Normal 32-36 [facility] Comment on above: Performed By: #### L 500.4050, L100.0100, L501.5200, L501.2300 ####[facility] [address] [place], [address] MCV (RBC) [Entitic vol] 87.6 fL Normal 81-99 [facility] Comment on above: Performed By: #### L 500.4050, L100.0100, L501.5200, L501.2300 ####[facility] [address] [place], [address] Monocytes/100 WBC (Bld) 10.5 % High 0-10 [facility] Comment on above: Performed By: #### L 500.4050, L100.0100, L501.5200, L501.2300 ####[facility] [address] [place], [address] Neutrophils/100 WBC (Bld) 62.1 % Normal 47-70 [facility] Comment on above: Performed By: #### L 500.4050, L100.0100, L501.5200, L501.2300 ####[facility] [address] [place], [address] Nucleated RBC (Bld) [#/Vol] 0 10*3/uL Normal 0-5 [facility] Comment on above: Performed By: #### L 500.4050, L100.0100, L501.5200, L501.2300 ####[facility] [address] [place], [address] Platelet mean volume (Bld) [Entitic vol] 11.1 fL Normal 6.2-12.0 [facility] Comment on above: Performed By: #### L 500.4050, L100.0100, L501.5200, L501.2300 ####[facility] [address] [place], [address] Platelets (Bld) [#/Vol] 196 10*3/uL Normal 150-450 [facility] Comment on above: Performed By: #### L 500.4050, L100.0100, L501.5200, L501.2300 ####[facility] [address] [place], [address] RBC (Bld) [#/Vol] 4.83 10*6/uL Normal 4.2-5.4 [facility] Comment on above: Performed By: #### L 500.4050, L100.0100, L501.5200, L501.2300 ####[facility] [address] [place], [address] RDW SD 40.5 fl Normal 35.1-43.9 [facility] Comment on above: Performed By: #### L 500.4050, L100.0100, L501.5200, L501.2300 ####[facility] [address] [place], [address] WBC (Bld) [#/Vol] 6.2 10*3/uL Normal 4.4-11.0 [facility] Comment on above: Performed By: #### L 500.4050, L100.0100, L501.5200, L501.2300 ####[facility] [address] [place], [address] Absolute Lymph 1.24 X10 3/uL Normal 0.83-4.51 [facility] Comment on above: Performed By: #### L 501.6710, L503.6005, L101.9900, L500.2500, L300.3900, L100.0100 ####[facility] [address] [place], [address] Absolute Neut 5.5 X10 3/uL Normal 2.0-7.7 [facility] Comment on above: Performed By: #### L 501.6710, L503.6005, L101.9900, L500.2500, L300.3900, L100.0100 ####[facility] [address] [place], [address] Basophils/100 WBC (Bld) 0.9 % Normal 0-1 [facility] Comment on above: Performed By: #### L 501.6710, L503.6005, L101.9900, L500.2500, L300.3900, L100.0100 ####[facility] [address] [place], [address] Eosinophils/100 WBC (Bld) 2.0 % Normal 0-5 [facility] Comment on above: Performed By: #### L 501.6710, L503.6005, L101.9900, L500.2500, L300.3900, L100.0100 ####[facility] [address] [place], [address] Erythrocyte distribution width (RBC) [Ratio] 12.7 % Normal 11.6-14.6 [facility] Comment on above: Performed By: #### L 501.6710, L503.6005, L101.9900, L500.2500, L300.3900, L100.0100 ####[facility] [address] [place], [address] Hematocrit (Bld) [Volume fraction] 47.3 % High 37-47 [facility] Comment on above: Performed By: #### L 501.6710, L503.6005, L101.9900, L500.2500, L300.3900, L100.0100 ####[facility] [address] [place], [address] Hemoglobin (Bld) [Mass/Vol] 15.8 g/dL High 12.0-15.0 [facility] Comment on above: Performed By: #### L 501.6710, L503.6005, L101.9900, L500.2500, L300.3900, L100.0100 ####[facility] [address] [place], [address] IG% 2.900 High 0.0-0.9 [facility] Comment on above: Result Comment: IG% - Immature Granulocytes (promyelocytes, myelocytes andmetamyelocytes) > 1% indicates that a LEFT SHIFT is Present. Performed By: #### L 501.6710, L503.6005, L101.9900, L500.2500, L300.3900, L100.0100 ####[facility] [address] [place], [address] Lymphocytes/100 WBC (Bld) 15.4 % Low 19-41 [facility] Comment on above: Performed By: #### L 501.6710, L503.6005, L101.9900, L500.2500, L300.3900, L100.0100 ####[facility] [address] [place], [address] MCH (RBC) [Entitic mass] 28.8 pg Normal 27.0-32.0 [facility] Comment on above: Performed By: #### L 501.6710, L503.6005, L101.9900, L500.2500, L300.3900, L100.0100 ####[facility] [address] [place], [address] MCHC (RBC) [Mass/Vol] 33.4 g/dL Normal 32-36 [facility] Comment on above: Performed By: #### L 501.6710, L503.6005, L101.9900, L500.2500, L300.3900, L100.0100 ####[facility] [address] [place], [address] MCV (RBC) [Entitic vol] 86.3 fL Normal 81-99 [facility] Comment on above: Performed By: #### L 501.6710, L503.6005, L101.9900, L500.2500, L300.3900, L100.0100 ####[facility] [address] [place], [address] Monocytes/100 WBC (Bld) 10.6 % High 0-10 [facility] Comment on above: Performed By: #### L 501.6710, L503.6005, L101.9900, L500.2500, L300.3900, L100.0100 ####[facility] [address] [place], [address] Neutrophils/100 WBC (Bld) 68.2 % Normal 47-70 [facility] Comment on above: Performed By: #### L 501.6710, L503.6005, L101.9900, L500.2500, L300.3900, L100.0100 ####[facility] [address] [place], [address] Nucleated RBC (Bld) [#/Vol] 0.2 10*3/uL Normal 0-5 [facility] Comment on above: Performed By: #### L 501.6710, L503.6005, L101.9900, L500.2500, L300.3900, L100.0100 ####[facility] [address] [place], [address] Platelet mean volume (Bld) [Entitic vol] 10.9 fL Normal 6.2-12.0 [facility] Comment on above: Performed By: #### L 501.6710, L503.6005, L101.9900, L500.2500, L300.3900, L100.0100 ####[facility] [address] [place], [address] Platelets (Bld) [#/Vol] 250 10*3/uL Normal 150-450 [facility] Comment on above: Performed By: #### L 501.6710, L503.6005, L101.9900, L500.2500, L300.3900, L100.0100 ####[facility] [address] [place], [address] RBC (Bld) [#/Vol] 5.48 10*6/uL High 4.2-5.4 [facility] Comment on above: Performed By: #### L 501.6710, L503.6005, L101.9900, L500.2500, L300.3900, L100.0100 ####[facility] [address] [place], [address] RDW SD 39.3 fl Normal 35.1-43.9 [facility] Comment on above: Performed By: #### L 501.6710, L503.6005, L101.9900, L500.2500, L300.3900, L100.0100 ####[facility] [address] [place], [address] WBC (Bld) [#/Vol] 8.1 10*3/uL Normal 4.4-11.0 [facility] Comment on above: Performed By: #### L 501.6710, L503.6005, L101.9900, L500.2500, L300.3900, L100.0100 ####[facility] [address] [place], [address] CRPon 02-21-2024 C-REACTIVE PROT < 2.90 Normal 0.0-3.0 [facility] Comment on above: Result Comment: C-Re active Protein (CRP) provides useful information for thediagnosis, therapy and monitoring of inflammatory processesand associated diseases. For the evaluation of Relative Riskfor Cardiovascular Disease, a High Sensitivity CRP (HSCRP)should be ordered. Performed By: #### L 501.6710, L503.6005, L101.9900, L500.2500, L300.3900, L100.0100 ####[facility] [address] [place], [address] Comprehensive Metabolic Prof ilon 02-21-2024 Albumin [Mass/Vol] 2.8 g/dL Low 3.2-5.0 [facility] Comment on above: Performed By: #### L 500.4050, L100.0100, L501.5200, L501.2300 ####[facility] [address] [place], [address] Albumin/Globulin [Mass ratio] 1.0 {ratio} Normal 0.9-2.4 [facility] Comment on above: Performed By: #### L 500.4050, L100.0100, L501.5200, L501.2300 ####[facility] [address] [place], [address] ALK P 132 U/L High 45-117 [facility] Comment on above: Performed By: #### L 500.4050, L100.0100, L501.5200, L501.2300 ####[facility] [address] [place], [address] ALT [Catalytic activity/Vol] 81 U/L High 13-56 [facility] Comment on above: Performed By: #### L 500.4050, L100.0100, L501.5200, L501.2300 ####[facility] [address] [place], [address] AST [Catalytic activity/Vol] 54 U/L High 15-37 [facility] Comment on above: Performed By: #### L 500.4050, L100.0100, L501.5200, L501.2300 ####[facility] [address] [place], [address] Bilirubin [Mass/Vol] 0.30 mg/dL Normal 0.20-1.00 [facility] Comment on above: Result Comment: For patients on eltrombopag therapy, use of Dimension [place] TBIL is not recommended. Performed By: #### L 500.4050, L100.0100, L501.5200, L501.2300 ####[facility] [address] [place], [address] BUN/CRE 18.4 RATIO Normal 10-20 [facility] Comment on above: Performed By: #### L 500.4050, L100.0100, L501.5200, L501.2300 ####[facility] [address] [place], [address] CA,Total 8.5 mg/dL Normal 8.5-10.1 [facility] Comment on above: Performed By: #### L 500.4050, L100.0100, L501.5200, L501.2300 ####[facility] [address] [place], [address] Chloride [Moles/Vol] 104 mmol/L Normal 98-107 [facility] Comment on above: Performed By: #### L 500.4050, L100.0100, L501.5200, L501.2300 ####[facility] [address] [place], [address] CO2 [Moles/Vol] 27.0 mmol/L Normal 21.0-32.0 [facility] Comment on above: Performed By: #### L 500.4050, L100.0100, L501.5200, L501.2300 ####[facility] [address] [place], [address] Creatinine [Mass/Vol] 0.60 mg/dL Normal 0.55-1.02 [facility] Comment on above: Result Comment: The validity of the calculated GFR GFRAA in patients over70 years has not been determined. Clinical correlation isessential. Performed By: #### L 500.4050, L100.0100, L501.5200, L501.2300 ####[facility] [address] [place], [address] ECRCL 97.57 ml/min Normal [facility] Comment on above: Performed By: #### L 500.4050, L100.0100, L501.5200, L501.2300 ####[facility] [address] [place], [address] EST GFR - AA 135 mL/min Normal >60 [facility] Comment on above: Result Comment: Afri can Slovenian GFR Calc Performed By: #### L 500.4050, L100.0100, L501.5200, L501.2300 ####[facility] [address] [place], [address] GAP 7 Normal 5-15 [facility] Comment on above: Performed By: #### L 500.4050, L100.0100, L501.5200, L501.2300 ####[facility] [address] [place], [address] GFR/1.73 sq M.predicted among non-blacks MDRD (S/P/Bld) [Vol rate/Area] 111 mL/min/{1.73_m2} Normal >60 [facility] Comment on above: Result Comment: Non- GFR Calc Performed By: #### L 500.4050, L100.0100, L501.5200, L501.2300 ####[facility] [address] [place], [address] Globulin (S) [Mass/Vol] 2.7 g/dL Normal 2.2-4.2 [facility] Comment on above: Performed By: #### L 500.4050, L100.0100, L501.5200, L501.2300 ####[facility] [address] [place], [address] Glucose [Mass/Vol] 381 mg/dL High 74-106 [facility] Comment on above: Result Comment: Gluc ose result greater than or equal to 200 mg/dLsuggests DIABETES MELLITUS per A.D.A. criteria. Performed By: #### L 500.4050, L100.0100, L501.5200, L501.2300 ####[facility] [address] [place], [address] Potassium [Moles/Vol] 3.7 mmol/L Normal 3.5-5.1 [facility] Comment on above: Performed By: #### L 500.4050, L100.0100, L501.5200, L501.2300 ####[facility] [address] [place], [address] Sodium [Moles/Vol] 138 mmol/L Normal 136-145 [facility] Comment on above: Performed By: #### L 500.4050, L100.0100, L501.5200, L501.2300 ####[facility] [address] [place], [address] T PROT 5.5 g/dL Low 6.4-8.2 [facility] Comment on above: Performed By: #### L 500.4050, L100.0100, L501.5200, L501.2300 ####[facility] [address] [place], [address] Urea nitrogen [Mass/Vol] 11 mg/dL Normal 7-18 [facility] Comment on above: Performed By: #### L 500.4050, L100.0100, L501.5200, L501.2300 ####[facility] [address] [place], [address] Erythrocyte Sed Rateon 02-20 SED RATE 9 mm/hr Normal 0-30 [facility] Comment on above: Performed By: #### L 501.6710, L503.6005, L101.9900, L500.2500, L300.3900, L100.0100 ####[facility] [address] [place], [address] Foot min 3 Viewson 4 Foot min 3 Views Normal [facility] Gram Stainon 02-21-2024 GS List Antibiotics Las t 48 Hours? Vancomycin List Antibiotics to be Started? Zosyn Gram Stain Rare White Blood Cells No organisms seen Normal [facility] Comment on above: Performed By: #### M 100.3000, M100.2000 ####[facility] [address] [place], [address] H AND P Exam - Hospitaliston 02-21-2024 H&P Exam - Hospitalist Normal [facility] Lactic Acidon 02-21-2024 Lactate [Moles/Vol] 1.5 mmol/L Normal 0.4-1.9 [facility] Comment on above: Order Comment: Y Performed By: #### L 501.6710, L503.6005, L101.9900, L500.2500, L300.3900, L100.0100 ####[facility] [address] [place], [address] Lower Ext/No Jt/w/oon 2023 Lower Ext/No Jt/w/o Normal [facility] MRSA Wound DNA by PCRon MRSA DNA ASSAY Positive Abnormal Negative [facility] Comment on above: Order Comment: Right Foot Ulcer Result Comment: Copy of report sent to Infection Control Printer [place]#-[id number]/21/24 0535 ADELFO.[facility] 0535 Sylvester Mejia.REPORT READ BACK BY SAME. Performed By: #### L 8200.1075 ####[facility] [address] [place], [address] SA DNA ASSAY Positive Abnormal Negative [facility] Comment on above: Order Comment: Right Foot Ulcer Performed By: #### L 8200.1075 ####[facility] [address] [place], [address] Magnesiumon 02-21-2024 Magnesium [Mass/Vol] 1.8 mg/dL Normal 1.6-2.6 [facility] Comment on above: Performed By: #### L 500.4050, L100.0100, L501.5200, L501.2300 ####[facility] [address] [place], [address] Phosphoruson 02-21-2024 Phosphate [Mass/Vol] 3.7 mg/dL Normal 2.5-4.9 [facility] Comment on above: Performed By: #### L 500.4050, L100.0100, L501.5200, L501.2300 ####[facility] [address] [place], [address] Prothrombin Time w/INRon INR Coag (PPP) [Relative time] 1.0 {INR} Normal [facility] Comment on above: Performed By: #### L 501.6710, L503.6005, L101.9900, L500.2500, L300.3900, L100.0100 ####[facility] [address] [place], [address] PT Coag (PPP) [Time] 12.7 s Normal 11.7-14.9 [facility] Comment on above: Performed By: #### L 501.6710, L503.6005, L101.9900, L500.2500, L300.3900, L100.0100 ####[facility] [address] [place], [address] Emergency Department Summary on 02-20-2024 Emergency Department Summary Normal [facility] Culture, Blood (WB)on 2023 CUB Blood cultures x2 fr om two different sites No growth in 5 days. Normal [facility] Comment on above: Performed By: #### M 200.1000 ####[facility] [address] [place], [address] Basic Metabolic Profile (BMP )on 02-10-2024 BUN Normal 7-18 [facility] Comment on above: Result Comment: Canc elled via OM: Order cancelled - Patient discharged Performed By: #### L 500.2500 ####[facility] [address] [place], [address] BUN/CRE Normal 10-20 [facility] Comment on above: Result Comment: Canc elled via OM: Order cancelled - Patient discharged Performed By: #### L 500.2500 ####[facility] [address] [place], [address] CA,Total Normal 8.5-10.1 [facility] Comment on above: Result Comment: Canc elled via OM: Order cancelled - Patient discharged Performed By: #### L 500.2500 ####[facility] [address] [place], [address] CL Normal 98-107 [facility] Comment on above: Result Comment: Canc elled via OM: Order cancelled - Patient discharged Performed By: #### L 500.2500 ####[facility] [address] [place], [address] CO2 Normal 21.0-32.0 [facility] Comment on above: Result Comment: Canc elled via OM: Order cancelled - Patient discharged Performed By: #### L 500.2500 ####[facility] [address] [place], [address] CREAT,SERUM Normal 0.55-1.02 [facility] Comment on above: Result Comment: Canc elled via OM: Order cancelled - Patient discharged Performed By: #### L 500.2500 ####[facility] [address] [place], [address] EST GFR Normal >60 [facility] Comment on above: Result Comment: Canc elled via OM: Order cancelled - Patient discharged Performed By: #### L 500.2500 ####[facility] [address] [place], [address] EST GFR - AA Normal >60 [facility] Comment on above: Result Comment: Canc elled via OM: Order cancelled - Patient discharged Performed By: #### L 500.2500 ####[facility] [address] [place], [address] GAP Normal 5-15 [facility] Comment on above: Result Comment: Canc elled via OM: Order cancelled - Patient discharged Performed By: #### L 500.2500 ####[facility] [address] [place], [address] GLU Normal 74-106 [facility] Comment on above: Result Comment: Canc elled via OM: Order cancelled - Patient discharged Performed By: #### L 500.2500 ####[facility] [address] [place], [address] Potassium Normal 3.5-5.1 [facility] Comment on above: Result Comment: Canc elled via OM: Order cancelled - Patient discharged Performed By: #### L 500.2500 ####[facility] [address] [place], [address] Basic Metabolic Profile (BMP) Normal 136-145 [facility] Comment on above: Result Comment: Canc elled via OM: Order cancelled - Patient discharged Performed By: #### L 500.2500 ####[facility] [address] [place], [address] CBC-Complete Blood Cnt No Di ffon 02-10-2024 HCT Normal 37-47 [facility] Comment on above: Result Comment: Canc elled via OM: Order cancelled - Patient discharged Performed By: #### L 100.0500 ####[facility] [address] [place], [address] HGB Normal 12.0-15.0 [facility] Comment on above: Result Comment: Canc elled via OM: Order cancelled - Patient discharged Performed By: #### L 100.0500 ####[facility] [address] [place], [address] MCH Normal 27.0-32.0 [facility] Comment on above: Result Comment: Canc elled via OM: Order cancelled - Patient discharged Performed By: #### L 100.0500 ####[facility] [address] [place], [address] MCHC Normal 32-36 [facility] Comment on above: Result Comment: Canc elled via OM: Order cancelled - Patient discharged Performed By: #### L 100.0500 ####[facility] [address] [place], [address] MCV Normal 81-99 [facility] Comment on above: Result Comment: Canc elled via OM: Order cancelled - Patient discharged Performed By: #### L 100.0500 ####[facility] [address] [place], [address] PLT Normal 150-450 [facility] Comment on above: Result Comment: Canc elled via OM: Order cancelled - Patient discharged Performed By: #### L 100.0500 ####[facility] [address] [place], [address] RBC Normal 4.2-5.4 [facility] Comment on above: Result Comment: Canc elled via OM: Order cancelled - Patient discharged Performed By: #### L 100.0500 ####[facility] [address] [place], [address] RDW CV Normal 11.6-14.6 [facility] Comment on above: Result Comment: Canc elled via OM: Order cancelled - Patient discharged Performed By: #### L 100.0500 ####[facility] [address] [place], [address] RDW SD Normal 35.1-43.9 [facility] Comment on above: Result Comment: Canc elled via OM: Order cancelled - Patient discharged Performed By: #### L 100.0500 ####[facility] [address] [place], [address] WBC Normal 4.4-11.0 [facility] Comment on above: Result Comment: Canc elled via OM: Order cancelled - Patient discharged Performed By: #### L 100.0500 ####[facility] [address] [place], [address] Bedside Glucoseon 02-09-2024 FINGERSTICK GLU 309 mg/dL High 74-106 [facility] Comment on above: Result Comment: DELLA GEMENT OF PATIENT CARE PER NURSING PROTOCOL Performed By: #### L 501.080 ####[facility] [address] [place], [address] FINGERSTICK GLU 345 mg/dL High 74-106 [facility] Comment on above: Result Comment: DELLA GEMENT OF PATIENT CARE PER NURSING PROTOCOL Performed By: #### L 501.080 ####[facility] [address] [place], [address] FINGERSTICK GLU 423 mg/dL High 74-106 [facility] Comment on above: Result Comment: DELLA GEMENT OF PATIENT CARE PER NURSING PROTOCOL Performed By: #### L 501.080 ####[facility] [address] [place], [address] CBC W/Diff, Automatedon - Absolute Lymph 1.24 X10 3/uL Normal 0.83-4.51 [facility] Comment on above: Performed By: #### L 501.5200, L501.2300, L500.4050, L100.0100, L501.9520 ####[facility] [address] [place], [address] Absolute Neut 1.9 X10 3/uL Low 2.0-7.7 [facility] Comment on above: Performed By: #### L 501.5200, L501.2300, L500.4050, L100.0100, L501.9520 ####[facility] [address] [place], [address] Basophils/100 WBC (Bld) 1.0 % Normal 0-1 [facility] Comment on above: Performed By: #### L 501.5200, L501.2300, L500.4050, L100.0100, L501.9520 ####[facility] [address] [place], [address] Eosinophils/100 WBC (Bld) 5.1 % High 0-5 [facility] Comment on above: Performed By: #### L 501.5200, L501.2300, L500.4050, L100.0100, L501.9520 ####[facility] [address] [place], [address] Erythrocyte distribution width (RBC) [Ratio] 12.2 % Normal 11.6-14.6 [facility] Comment on above: Performed By: #### L 501.5200, L501.2300, L500.4050, L100.0100, L501.9520 ####[facility] [address] [place], [address] Hematocrit (Bld) [Volume fraction] 38.3 % Normal 37-47 [facility] Comment on above: Performed By: #### L 501.5200, L501.2300, L500.4050, L100.0100, L501.9520 ####[facility] [address] [place], [address] Hemoglobin (Bld) [Mass/Vol] 12.6 g/dL Normal 12.0-15.0 [facility] Comment on above: Performed By: #### L 501.5200, L501.2300, L500.4050, L100.0100, L501.9520 ####[facility] [address] [place], [address] IG% 1.800 High 0.0-0.9 [facility] Comment on above: Result Comment: IG% - Immature Granulocytes (promyelocytes, myelocytes andmetamyelocytes) > 1% indicates that a LEFT SHIFT is Present. Performed By: #### L 501.5200, L501.2300, L500.4050, L100.0100, L501.9520 ####[facility] [address] [place], [address] Lymphocytes/100 WBC (Bld) 31.7 % Normal 19-41 [facility] Comment on above: Performed By: #### L 501.5200, L501.2300, L500.4050, L100.0100, L501.9520 ####[facility] [address] [place], [address] MCH (RBC) [Entitic mass] 28.4 pg Normal 27.0-32.0 [facility] Comment on above: Performed By: #### L 501.5200, L501.2300, L500.4050, L100.0100, L501.9520 ####[facility] [address] [place], [address] MCHC (RBC) [Mass/Vol] 32.9 g/dL Normal 32-36 [facility] Comment on above: Performed By: #### L 501.5200, L501.2300, L500.4050, L100.0100, L501.9520 ####[facility] [address] [place], [address] MCV (RBC) [Entitic vol] 86.5 fL Normal 81-99 [facility] Comment on above: Performed By: #### L 501.5200, L501.2300, L500.4050, L100.0100, L501.9520 ####[facility] [address] [place], [address] Monocytes/100 WBC (Bld) 11.3 % High 0-10 [facility] Comment on above: Performed By: #### L 501.5200, L501.2300, L500.4050, L100.0100, L501.9520 ####[facility] [address] [place], [address] Neutrophils/100 WBC (Bld) 49.1 % Normal 47-70 [facility] Comment on above: Performed By: #### L 501.5200, L501.2300, L500.4050, L100.0100, L501.9520 ####[facility] [address] [place], [address] Nucleated RBC (Bld) [#/Vol] 0 10*3/uL Normal 0-5 [facility] Comment on above: Performed By: #### L 501.5200, L501.2300, L500.4050, L100.0100, L501.9520 ####[facility] [address] [place], [address] Platelet mean volume (Bld) [Entitic vol] 10.1 fL Normal 6.2-12.0 [facility] Comment on above: Performed By: #### L 501.5200, L501.2300, L500.4050, L100.0100, L501.9520 ####[facility] [address] [place], [address] Platelets (Bld) [#/Vol] 198 10*3/uL Normal 150-450 [facility] Comment on above: Performed By: #### L 501.5200, L501.2300, L500.4050, L100.0100, L501.9520 ####[facility] [address] [place], [address] RBC (Bld) [#/Vol] 4.43 10*6/uL Normal 4.2-5.4 [facility] Comment on above: Performed By: #### L 501.5200, L501.2300, L500.4050, L100.0100, L501.9520 ####[facility] [address] [place], [address] RDW SD 38.6 fl Normal 35.1-43.9 [facility] Comment on above: Performed By: #### L 501.5200, L501.2300, L500.4050, L100.0100, L501.9520 ####[facility] [address] [place], [address] WBC (Bld) [#/Vol] 3.9 10*3/uL Low 4.4-11.0 [facility] Comment on above: Performed By: #### L 501.5200, L501.2300, L500.4050, L100.0100, L501.9520 ####[facility] [address] [place], [address] Comprehensive Metabolic [facility] 02-09-2024 Albumin [Mass/Vol] 2.6 g/dL Low 3.2-5.0 [facility] Comment on above: Performed By: #### L 501.5200, L501.2300, L500.4050, L100.0100, L501.9520 ####[facility] [address] [place], [address] Albumin/Globulin [Mass ratio] 0.9 {ratio} Normal 0.9-2.4 [facility] Comment on above: Performed By: #### L 501.5200, L501.2300, L500.4050, L100.0100, L501.9520 ####[facility] [address] [place], [address] ALK P 161 U/L High 45-117 [facility] Comment on above: Performed By: #### L 501.5200, L501.2300, L500.4050, L100.0100, L501.9520 ####[facility] [address] [place], [address] ALT [Catalytic activity/Vol] 111 U/L High 13-56 [facility] Comment on above: Performed By: #### L 501.5200, L501.2300, L500.4050, L100.0100, L501.9520 ####[facility] [address] [place], [address] AST [Catalytic activity/Vol] 55 U/L High 15-37 [facility] Comment on above: Performed By: #### L 501.5200, L501.2300, L500.4050, L100.0100, L501.9520 ####[facility] [address] [place], [address] Bilirubin [Mass/Vol] 0.40 mg/dL Normal 0.20-1.00 [facility] Comment on above: Result Comment: For patients on eltrombopag therapy, use of Dimension [place] TBIL is not recommended. Performed By: #### L 501.5200, L501.2300, L500.4050, L100.0100, L501.9520 ####[facility] [address] [place], [address] BUN/CRE 23.5 RATIO High 10-20 [facility] Comment on above: Performed By: #### L 501.5200, L501.2300, L500.4050, L100.0100, L501.9520 ####[facility] [address] [place], [address] CA,Total 8.3 mg/dL Low 8.5-10.1 [facility] Comment on above: Performed By: #### L 501.5200, L501.2300, L500.4050, L100.0100, L501.9520 ####[facility] [address] [place], [address] Chloride [Moles/Vol] 106 mmol/L Normal 98-107 [facility] Comment on above: Performed By: #### L 501.5200, L501.2300, L500.4050, L100.0100, L501.9520 ####[facility] [address] [place], [address] CO2 [Moles/Vol] 26.0 mmol/L Normal 21.0-32.0 [facility] Comment on above: Performed By: #### L 501.5200, L501.2300, L500.4050, L100.0100, L501.9520 ####[facility] [address] [place], [address] Creatinine [Mass/Vol] 0.55 mg/dL Normal 0.55-1.02 [facility] Comment on above: Result Comment: The validity of the calculated GFR GFRAA in patients over70 years has not been determined. Clinical correlation isessential. Performed By: #### L 501.5200, L501.2300, L500.4050, L100.0100, L501.9520 ####[facility] [address] [place], [address] ECRCL 106.44 ml/min Normal [facility] Comment on above: Performed By: #### L 501.5200, L501.2300, L500.4050, L100.0100, L501.9520 ####[facility] [address] [place], [address] EST GFR - AA 147 mL/min Normal >60 [facility] Comment on above: Result Comment: Afri can Slovenian GFR Calc Performed By: #### L 501.5200, L501.2300, L500.4050, L100.0100, L501.9520 ####[facility] [address] [place], [address] GAP 4 Low 5-15 [facility] Comment on above: Performed By: #### L 501.5200, L501.2300, L500.4050, L100.0100, L501.9520 ####[facility] [address] [place], [address] GFR/1.73 sq M.predicted among non-blacks MDRD (S/P/Bld) [Vol rate/Area] 122 mL/min/{1.73_m2} Normal >60 [facility] Comment on above: Result Comment: Non- GFR Calc Performed By: #### L 501.5200, L501.2300, L500.4050, L100.0100, L501.9520 ####[facility] [address] [place], [address] Globulin (S) [Mass/Vol] 2.9 g/dL Normal 2.2-4.2 [facility] Comment on above: Performed By: #### L 501.5200, L501.2300, L500.4050, L100.0100, L501.9520 ####[facility] [address] [place], [address] Glucose [Mass/Vol] 381 mg/dL High 74-106 [facility] Comment on above: Result Comment: Gluc ose result greater than or equal to 200 mg/dLsuggests DIABETES MELLITUS per A.D.A. criteria. Performed By: #### L 501.5200, L501.2300, L500.4050, L100.0100, L501.9520 ####[facility] [address] [place], [address] Potassium [Moles/Vol] 4.0 mmol/L Normal 3.5-5.1 [facility] Comment on above: Performed By: #### L 501.5200, L501.2300, L500.4050, L100.0100, L501.9520 ####[facility] [address] [place], [address] Sodium [Moles/Vol] 136 mmol/L Normal 136-145 [facility] Comment on above: Performed By: #### L 501.5200, L501.2300, L500.4050, L100.0100, L501.9520 ####[facility] [address] [place], [address] T PROT 5.5 g/dL Low 6.4-8.2 [facility] Comment on above: Performed By: #### L 501.5200, L501.2300, L500.4050, L100.0100, L501.9520 ####[facility] [address] [place], [address] Urea nitrogen [Mass/Vol] 13 mg/dL Normal 7-18 [facility] Comment on above: Performed By: #### L 501.5200, L501.2300, L500.4050, L100.0100, L501.9520 ####[facility] [address] [place], [address] Magnesiumon 02-09-2024 Magnesium [Mass/Vol] 1.9 mg/dL Normal 1.6-2.6 [facility] Comment on above: Performed By: #### L 501.5200, L501.2300, L500.4050, L100.0100, L501.9520 ####[facility] [address] [place], [address] Phosphoruson 02-09-2024 Phosphate [Mass/Vol] 3.5 mg/dL Normal 2.5-4.9 [facility] Comment on above: Performed By: #### L 501.5200, L501.2300, L500.4050, L100.0100, L501.9520 ####[facility] [address] [place], [address] Thyroid Stim Hormone (TSH)on 02-09-2024 TSH 0.916 uIU/mL Normal 0.358-3.740 [facility] Comment on above: Performed By: #### L 501.5200, L501.2300, L500.4050, L100.0100, L501.9520 ####[facility] [address], [address] Vancomycin, Trough Levelon VANCO, TROUGH 7.1 ug/mL Normal 5.0-15.0 [facility] Comment on above: Order Comment: Comme nts: Trough to be drawn 30 mins prior to scheduled [id number] Result Comment: VANC OMYCIN STANDARED DRUG THERAPY TROUGH LEVEL: 5.0 - 15.0 mg/LVANCOMYCIN HIGH INTENSITY THERAPY TROUGH LEVEL: 15.0 - 20.0 mg/LHigh Intensity therapy recommended for serious lifethreatening infections include:- Qjmfbsddks-Ezhgmufvptpp-Wsfclihqf (Ventilator/Healtcare Associated)-SepsisPLEASE CONTACT PHARMACY SERVICES (#[id number]) FOR INTERPRETATIONOF RESULTS. Performed By: #### L 501.8820 ####[facility] [address] [place], [place], [phone] Basic Metabolic Profile (BMP )on 02-08-2024 BUN/CRE 31.8 RATIO High 02-01 [facility] Comment on above: Performed By: #### L 503.6005, L509.7000, L100.0100, L101.9900, L500.2500, L501.6710 ####[facility] [address] [place], [place], [phone] CA,Total 9.1 mg/dL Normal 8.5-10.1 [facility] Comment on above: Performed By: #### L 503.6005, L509.7000, L100.0100, L101.9900, L500.2500, L501.6710 ####[facility] [address] [place], [address] Chloride [Moles/Vol] 102 mmol/L Normal 98-107 [facility] Comment on above: Performed By: #### L 503.6005, L509.7000, L100.0100, L101.9900, L500.2500, L501.6710 ####[facility] [address] [place], [address] CO2 [Moles/Vol] 25.0 mmol/L Normal 21.0-32.0 [facility] Comment on above: Performed By: #### L 503.6005, L509.7000, L100.0100, L101.9900, L500.2500, L501.6710 ####[facility] [address] [place], [address] Creatinine [Mass/Vol] 0.63 mg/dL Normal 0.55-1.02 [facility] Comment on above: Result Comment: The validity of the calculated GFR GFRAA in patients over70 years has not been determined. Clinical correlation isessential. Performed By: #### L 503.6005, L509.7000, L100.0100, L101.9900, L500.2500, L501.6710 ####[facility] [address] [place], [address] ECRCL 92.93 ml/min Normal [facility] Comment on above: Performed By: #### L 503.6005, L509.7000, L100.0100, L101.9900, L500.2500, L501.6710 ####[facility] [address] [place], [address] EST GFR - AA 127 mL/min Normal >60 [facility] Comment on above: Result Comment: Afri can Slovenian GFR Calc Performed By: #### L 503.6005, L509.7000, L100.0100, L101.9900, L500.2500, L501.6710 ####[facility] [address] [place], [address] GAP 7 Normal 5-15 [facility] Comment on above: Performed By: #### L 503.6005, L509.7000, L100.0100, L101.9900, L500.2500, L501.6710 ####[facility] [address] [place], [address] GFR/1.73 sq M.predicted among non-blacks MDRD (S/P/Bld) [Vol rate/Area] 105 mL/min/{1.73_m2} Normal >60 [facility] Comment on above: Result Comment: Non- GFR Calc Performed By: #### L 503.6005, L509.7000, L100.0100, L101.9900, L500.2500, L501.6710 ####[facility] [address] [place], [address] Glucose [Mass/Vol] 402 mg/dL High 74-106 [facility] Comment on above: Result Comment: Gluc ose result greater than or equal to 200 mg/dLsuggests DIABETES MELLITUS per A.D.A. criteria. Performed By: #### L 503.6005, L509.7000, L100.0100, L101.9900, L500.2500, L501.6710 ####[facility] [address] [place], [address] Potassium [Moles/Vol] 3.6 mmol/L Normal 3.5-5.1 [facility] Comment on above: Performed By: #### L 503.6005, L509.7000, L100.0100, L101.9900, L500.2500, L501.6710 ####[facility] [address] [place], [address] Sodium [Moles/Vol] 134 mmol/L Low 136-145 [facility] Comment on above: Performed By: #### L 503.6005, L509.7000, L100.0100, L101.9900, L500.2500, L501.6710 ####[facility] [address] [place], [address] Urea nitrogen [Mass/Vol] 20 mg/dL High 7-18 [facility] Comment on above: Performed By: #### L 503.6005, L509.7000, L100.0100, L101.9900, L500.2500, L501.6710 ####[facility] [address] [place], [address] Bedside Glucoseon 02-08-2024 FINGERSTICK GLU 369 mg/dL High 74-106 [facility] Comment on above: Result Comment: DELLA GEMENT OF PATIENT CARE PER NURSING PROTOCOL Performed By: #### L 501.080 ####[facility] [address] [place], [address] FINGERSTICK GLU 357 mg/dL High 74-106 [facility] Comment on above: Result Comment: DELLA GEMENT OF PATIENT CARE PER NURSING PROTOCOL Performed By: #### L 501.080 ####[facility] [address] [place], [address] FINGERSTICK GLU 334 mg/dL High 74-106 [facility] Comment on above: Result Comment: DELLA GEMENT OF PATIENT CARE PER NURSING PROTOCOL Performed By: #### L 501.080 ####[facility] [address] [place], [address] FINGERSTICK GLU 253 mg/dL High 74-106 [facility] Comment on above: Result Comment: DELLA GEMENT OF PATIENT CARE PER NURSING PROTOCOL Performed By: #### L 501.080 ####[facility] [address] [place], [address] CBC W/Diff, Automatedon 10-2 Absolute Lymph 2.81 X10 3/uL Normal 0.83-4.51 [facility] Comment on above: Performed By: #### L 503.6005, L509.7000, L100.0100, L101.9900, L500.2500, L501.6710 ####[facility] [address] [place], [address] Absolute Neut 5.8 X10 3/uL Normal 2.0-7.7 [facility] Comment on above: Performed By: #### L 503.6005, L509.7000, L100.0100, L101.9900, L500.2500, L501.6710 ####[facility] [address] [place], [address] Basophils/100 WBC (Bld) 0.8 % Normal 0-1 [facility] Comment on above: Performed By: #### L 503.6005, L509.7000, L100.0100, L101.9900, L500.2500, L501.6710 ####[facility] [address] [place], [address] Eosinophils/100 WBC (Bld) 0.9 % Normal 0-5 [facility] Comment on above: Performed By: #### L 503.6005, L509.7000, L100.0100, L101.9900, L500.2500, L501.6710 ####[facility] [address] [place], [address] Erythrocyte distribution width (RBC) [Ratio] 12.0 % Normal 11.6-14.6 [facility] Comment on above: Performed By: #### L 503.6005, L509.7000, L100.0100, L101.9900, L500.2500, L501.6710 ####[facility] [address] [place], [address] Hematocrit (Bld) [Volume fraction] 42.6 % Normal 37-47 [facility] Comment on above: Performed By: #### L 503.6005, L509.7000, L100.0100, L101.9900, L500.2500, L501.6710 ####[facility] [address] [place], [address] Hemoglobin (Bld) [Mass/Vol] 14.7 g/dL Normal 12.0-15.0 [facility] Comment on above: Performed By: #### L 503.6005, L509.7000, L100.0100, L101.9900, L500.2500, L501.6710 ####[facility] [address] [place], [address] IG% 1.300 High 0.0-0.9 [facility] Comment on above: Result Comment: IG% - Immature Granulocytes (promyelocytes, myelocytes andmetamyelocytes) > 1% indicates that a LEFT SHIFT is Present. Performed By: #### L 503.6005, L509.7000, L100.0100, L101.9900, L500.2500, L501.6710 ####[facility] [address], [address] Lymphocytes/100 WBC (Bld) 28.6 % Normal 19-41 [facility] Comment on above: Performed By: #### L 503.6005, L509.7000, L100.0100, L101.9900, L500.2500, L501.6710 ####[facility] [address], [address] MCH (RBC) [Entitic mass] 29.2 pg Normal 27.0-32.0 [facility] Comment on above: Performed By: #### L 503.6005, L509.7000, L100.0100, L101.9900, L500.2500, L501.6710 ####[facility] [address] [place], [address] MCHC (RBC) [Mass/Vol] 34.5 g/dL Normal 32-36 [facility] Comment on above: Performed By: #### L 503.6005, L509.7000, L100.0100, L101.9900, L500.2500, L501.6710 ####[facility] [address] [place], [address] MCV (RBC) [Entitic vol] 84.7 fL Normal 81-99 [facility] Comment on above: Performed By: #### L 503.6005, L509.7000, L100.0100, L101.9900, L500.2500, L501.6710 ####[facility] [address] [place], [address] Monocytes/100 WBC (Bld) 9.3 % Normal 0-10 [facility] Comment on above: Performed By: #### L 503.6005, L509.7000, L100.0100, L101.9900, L500.2500, L501.6710 ####[facility] [address] [place], [address] Neutrophils/100 WBC (Bld) 59.1 % Normal 47-70 [facility] Comment on above: Performed By: #### L 503.6005, L509.7000, L100.0100, L101.9900, L500.2500, L501.6710 ####[facility] [address] [place], [address] Nucleated RBC (Bld) [#/Vol] 0 10*3/uL Normal 0-5 [facility] Comment on above: Performed By: #### L 503.6005, L509.7000, L100.0100, L101.9900, L500.2500, L501.6710 ####[facility] [address] [place], [address] Platelet mean volume (Bld) [Entitic vol] 10.6 fL Normal 6.2-12.0 [facility] Comment on above: Performed By: #### L 503.6005, L509.7000, L100.0100, L101.9900, L500.2500, L501.6710 ####[facility] [address] [place], [address] Platelets (Bld) [#/Vol] 269 10*3/uL Normal 150-450 [facility] Comment on above: Performed By: #### L 503.6005, L509.7000, L100.0100, L101.9900, L500.2500, L501.6710 ####[facility] [address] [place], [address] RBC (Bld) [#/Vol] 5.03 10*6/uL Normal 4.2-5.4 [facility] Comment on above: Performed By: #### L 503.6005, L509.7000, L100.0100, L101.9900, L500.2500, L501.6710 ####[facility] [address] [place], [address] RDW SD 36.4 fl Normal 35.1-43.9 [facility] Comment on above: Performed By: #### L 503.6005, L509.7000, L100.0100, L101.9900, L500.2500, L501.6710 ####[facility] [address] [place], [address] WBC (Bld) [#/Vol] 9.8 10*3/uL Normal 4.4-11.0 [facility] Comment on above: Performed By: #### L 503.6005, L509.7000, L100.0100, L101.9900, L500.2500, L501.6710 ####[facility] [address] [place], [address] CRPon 02-08-2024 C-REACTIVE PROT 3.31 mg/L High 0.0-3.0 [facility] Comment on above: Result Comment: C-Re active Protein (CRP) provides useful information for thediagnosis, therapy and monitoring of inflammatory processesand associated diseases. For the evaluation of Relative Riskfor Cardiovascular Disease, a High Sensitivity CRP (HSCRP)should be ordered. Performed By: #### L 503.6005, L509.7000, L100.0100, L101.9900, L500.2500, L501.6710 ####[facility] [address] [place], [place], [address] Emergency Department Summary on 02-08-2024 Emergency Department Summary Normal [facility] Erythrocyte Sed Rateon 02-07 SED RATE 7 mm/hr Normal 0-30 [facility] Comment on above: Performed By: #### L 503.6005, L509.7000, L100.0100, L101.9900, L500.2500, L501.6710 ####[facility] [address] [place], [place], [address] Foot min 3 Viewson 4 Foot min 3 Views Normal [facility] H AND P Exam - Hospitaliston 02-08-2024 H&P Exam - Hospitalist Normal [facility] Lactic Acidon 02-08-2024 Lactate [Moles/Vol] 1.1 mmol/L Normal 0.4-1.9 [facility] Comment on above: Order Comment: Y Performed By: #### L 503.6005, L509.7000, L100.0100, L101.9900, L500.2500, L501.6710 ####[facility] [address] [place], [place], [id number] Lower Ext No Joint W/WO Cont on 02-08-2024 Lower Ext No Joint W/WO Cont Normal [facility] M R Staph Aureus DNA by PCRo n 02-08-2024 MRSA DNA ASSAY Positive Abnormal Negative [facility] Comment on above: Performed By: #### L 8200.1000 ####[facility] [address] [place], [place], [address] Procalcitoninon 02-08-2024 Procalcitonin 0.18 ng/mL High 0.00-0.09 [facility] Comment on above: Result Comment: A pr ocalcitonin (PCT) level above 2.0 ng/mL on the first day of ICU admission is associated with a high risk for progression to severe sepsis and/or septic shock. A PCT level below 0.5 ng/mL on the first day of ICU admission is associated with a low risk for progression to severe and/or septic shock. Note: Concentrations <0.5 ng/mL do not exclude an infection on account of localized infections (without systemic signs) which can be associated with such low concentrations, or a systemic infection in its initial stages (<6 hours). Furthermore, increased procalcitonin can occur without infection. PCT concentrations between 0.5 and 2.0 ng/mL should be interpreted taking into account the patient's history. It is recommended to retest PCT within 6-24 hours if any concentrations <2 ng/mL are obtained. Performed By: #### L 503.6005, L509.7000, L100.0100, L101.9900, L500.2500, L501.6710 ####[facility] [address] [facility] [address] Urine Drug Screen (VISTA)on 02-08-2024 AMPHETAMINES Normal <1000 ng/mL [facility] Comment on above: Result Comment: @DUP LICATE ORDER Performed By: #### L 505.5000 ####[facility] [address] [place], [address] BARBITIURATES Normal < 200 ng/mL [facility] Comment on above: Result Comment: @DUP LICATE ORDER Performed By: #### L 505.5000 ####[facility] [address] [place], [address] BENZODIAZIPINE Normal < 200 ng/mL [facility] Comment on above: Result Comment: @DUP LICATE ORDER Performed By: #### L 505.5000 ####[facility] [address] [place], [address] COCAINE Normal < 300 ng/mL [facility] Comment on above: Result Comment: @DUP LICATE ORDER Performed By: #### L 505.5000 ####[facility] [address] [place] [id number] DRUG CONFIRM Normal [facility] Comment on above: Result Comment: @DUP LICATE ORDER Performed By: #### L 505.5000 ####[facility] [address] [facility] [address] ECSTACY Normal < 500 ng/mL [facility] Comment on above: Result Comment: @DUP LICATE ORDER Performed By: #### L 505.5000 ####[facility] [address] [place] [id number] METHADONE Normal < 300 ng/mL [facility] Comment on above: Result Comment: @DUP LICATE ORDER Performed By: #### L 505.5000 ####[facility] [address] [place] [address] OPIATES Normal < 300 ng/mL [facility] Comment on above: Result Comment: @DUP LICATE ORDER Performed By: #### L 505.5000 ####[facility] [address] [place] [address] PCP Normal < 25 ng/mL [facility] Comment on above: Result Comment: @DUP LICATE ORDER Performed By: #### L 505.5000 ####[facility] [address] [place] [address] THC Normal < 50 ng/mL [facility] Comment on above: Result Comment: @DUP LICATE ORDER Performed By: #### L 505.5000 ####[facility] [address] [place] [address] VISTA UDS PH Normal [facility] Comment on above: Result Comment: @DUP LICATE ORDER Performed By: #### L 505.5000 ####[facility] [address] [place] [address] AMPHETAMINES Negative Normal <1000 ng/mL [facility] Comment on above: Performed By: #### L 505.5000 ####[facility] [address] [place] [address] BARBITIURATES Negative Normal < 200 ng/mL [facility] Comment on above: Performed By: #### L 505.5000 ####[facility] [address] [place] [address] BENZODIAZIPINE Negative Normal < 200 ng/mL [facility] Comment on above: Performed By: #### L 505.5000 ####[facility] [address] [place] [address] COCAINE Positive Abnormal < 300 ng/mL [facility] Comment on above: Performed By: #### L 505.5000 ####[facility] [address] [place] [address] ECSTACY Negative Normal < 500 ng/mL [facility] Comment on above: Performed By: #### L 505.5000 ####[facility] [address] [place] [address] METHADONE Negative Normal < 300 ng/mL [facility] Comment on above: Performed By: #### L 505.5000 ####[facility] [address] [place] [address] OPIATES Positive Abnormal < 300 ng/mL [facility] Comment on above: Performed By: #### L 505.5000 ####[facility] [address] [place] [address] PCP Negative Normal < 25 ng/mL [facility] Comment on above: Performed By: #### L 505.5000 ####[facility] [address] [place] [address] THC Negative Normal < 50 ng/mL [facility] Comment on above: Performed By: #### L 505.5000 ####[facility] [address] [place], [address] VISTA UDS PH 5 Normal [facility] Comment on above: Performed By: #### L 505.5000 ####[facility] [address] [place], [address] Cult, Bloodon 02-03-2024 Cult, Blood Specimen Description .BLOOD Special Requests Culture NO GROWTH 5 DAYS Report Status FINAL 02/03/2024 [facility] Comment on above: Performed By: #### B CUL2 #### [address] [place], [place] [id number] Candy Cutter Hand: Rodríguez Suarez MD Cult,Bloodon 02-03-2024 Cult,Blood Specimen Description .BLOOD Special Requests Culture NO GROWTH 5 DAYS Report Status FINAL 02/03/2024 [facility] Comment on above: Performed By: #### B C ####[address] [place] [address] Lab Director: Rodríguez Suarez MD Cult,Woundon 01-31-2024 Cult,Wound Specimen Description .FOOT Direct Exam Swab collections are low-yield and rarely indicated. Generally, the specimen volume when collected by swab is small, reducing the probability of isolating organisms: many organisms adhere to the fibers of the swab, which reduces the opportunity or recovering organisms. Interpret results with caution. FEW EPITHELIAL CELLS RARE Polymorphonuclear leukocytes MANY GRAM POSITIVE COCCI FEW GRAM POSITIVE COCCI IN PAIRS Culture METHICILLIN RESISTANT STAPHYLOCOCCUS AUREUS HEAVY GROWTH Most isolates are usually resistant to multiple antibiotics including other B lactams, Aminoglycosides, Macrolides, Clindamycin and Tetracycline. Report Status FINAL 01/31/2024 SUSCEPTIBILITY Organism METHICILLIN RESISTANT STAPHYLOCOCCUS AUREUS Method PINEDA Clindamycin >=4 RESISTANT Daptomycin (DPA) 0.25 SUSCEPTIBLE Erythromycin >=8 RESISTANT Gentamicin <=0.5 SUSCEPTIBLE Gentamicin is used only in combination with other active agents that test susceptible. Induced Clind Resist NEGATIVE Oxacillin >=4 RESISTANT Rifampin <=0.5 SUSCEPTIBLE Tigecycline <=0.12 SUSCEPTIBLE Trimethoprim/Sulfa <=10 SUSCEPTIBLE Vancomycin <=0.5 SUSCEPTIBLE Doxycycline >=16 RESISTANT Resistant [facility] Comment on above: Performed By: #### W DC ####[place] [address] [place] [address] Lab Director: Rodríguez Suarez MD C-Reactive Proteinon 024 CRP [Mass/Vol] 3.0 mg/L Normal 0-5 [facility] Comment on above: Performed By: #### P HVBG, LACTIC, PER, LIP, MG, CBC, CP #### [facility] [address] [place] [address] Candy Cutter Hand: Yaritza Infante MD #### BH #### [facility] [address] [place] [address] Candy Cutter Hand: Rodríguez Suarez MD CBC with Diffon 01-29-2024 Abs. Basophil 0.05 k/uL Normal 0.00-0.20 [facility] Comment on above: Performed By: #### C BCWD, SED, PLCON ####[address] [phone] Director: Rodríguez Suarez MD Abs.Imm.Granulocyte 0.14 k/uL Normal 0.00-0.58 [facility] Comment on above: Performed By: #### C BCWD, SED, PLCON ####[address] [phone] Director: Rodríguez Suarez MD Abs.Neutrophil (Seg) 4.94 k/uL Normal 1.80-7.30 [facility] Comment on above: Performed By: #### C BCWD, SED, PLCON ####[address] [phone] Director: Rodríguez Suarez MD Basophils/100 WBC (Bld) 1 % Normal 0.0-2.0 [facility] Comment on above: Performed By: #### C BCWD, SED, PLCON ####[place] [address], [place] [phone] Director: Rodríguez Suarez MD Eosinophils (Bld) [#/Vol] 0.18 10*3/uL Normal 0.05-0.50 [facility] Comment on above: Performed By: #### C BCWD, SED, PLCON ####[place] [address], [place] [phone] Director: Rodríguez Suarez MD Eosinophils/100 WBC (Bld) 2 % Normal 0-6 [facility] Comment on above: Performed By: #### C BCWD, SED, PLCON ####[place] [address] [place] [address] Lab Director: Rodríguez Suarez MD Erythrocyte distribution width (RBC) [Ratio] 12.1 % Normal 11.5-15.0 [facility] Comment on above: Performed By: #### C BCWD, SED, PLCON ####[place] [address] [place] [address]([phone] Director: Rodríguez Suarez MD Hematocrit (Bld) [Volume fraction] 42.2 % Normal 34.0-48.0 [facility] Comment on above: Performed By: #### C BCWD, SED, PLCON ####[place] [address] [place] [address] Lab Director: Rodríguez Suarez MD Hemoglobin (Bld) [Mass/Vol] 13.9 g/dL Normal 11.5-15.5 [facility] Comment on above: Performed By: #### C BCWD, SED, PLCON ####[address], [place] [phone] Director: Rodríguez Suarez MD Immature granulocytes/100 WBC (Bld) 2 % Normal 0.0-5.0 [facility] Comment on above: Performed By: #### C BCWD, SED, PLCON ####[address] [place] [phone] Director: Rodríguez Suarez MD Lymphocytes (Bld) [#/Vol] 1.45 10*3/uL Low 1.50-4.00 [facility] Comment on above: Performed By: #### C MEENA, SED, PLCON ####[address], [place] [phone] Director: Rodríguez Suarez MD Lymphocytes/100 WBC (Bld) 19 % Low 20.0-42.0 [facility] Comment on above: Performed By: #### C MEENA, SED, PLCON ####[address] [place] [phone] Director: Rodríguez Suarez MD MCH (RBC) [Entitic mass] 28.7 pg Normal 26.0-35.0 [facility] Comment on above: Performed By: #### Demetra ROBLEDO, SED, PLCON ####[address] [place] [phone] Director: Rodríguez Suarez MD MCHC (RBC) [Mass/Vol] 32.9 g/dL Normal 32.0-34.5 [facility] Comment on above: Performed By: #### C BCHUDSON, SED, PLCON ####[address] [place] [phone] Director: Rodríguez Suarez MD MCV (RBC) [Entitic vol] 87.2 fL Normal 80.0-99.9 [facility] Comment on above: Performed By: #### C BCWD, SED, PLCON ####[place] [address] [place] [address] Lab Director: Rodríguez Suarez MD Monocytes (Bld) [#/Vol] 0.77 10*3/uL Normal 0.10-0.95 [facility] Comment on above: Performed By: #### C BCWD, SED, PLCON ####[place] [address] [place] [address] Lab Director: Rodríguez Suarez MD Monocytes/100 WBC (Bld) 10 % Normal 2.0-12.0 [facility] Comment on above: Performed By: #### C BCWD, SED, PLCON ####[place] [address] [place] [address] Lab Director: Rodríguez Suarez MD Neutrophil (Seg) 66 % Normal 43.0-80.0 [facility] Comment on above: Performed By: #### C BCWD, SED, PLCON ####[place] [address] [place] [address] Lab Director: Rodríguez Suarez MD Platelet mean volume (Bld) [Entitic vol] 11.3 fL Normal 7.0-12.0 [facility] Comment on above: Performed By: #### C BCWD, SED, PLCON ####[place] [address] [place] [address] Lab Director: Rodríguez Suarez MD Platelet, Fluoresc. 191 k/uL Normal 130-450 [facility] Comment on above: Performed By: #### C BCWD, SED, PLCON ####[place] [address] [place] [address] Lab Director: Rodríguez Suarez MD RBC (Bld) [#/Vol] 4.84 10*6/uL Normal 3.50-5.50 [facility] Comment on above: Performed By: #### C BCWD, SED, PLCON ####[facility] [place] [address] Lab Director: Rodríguez Suarez MD WBC (Bld) [#/Vol] 7.5 10*3/uL Normal 4.5-11.5 [facility] Comment on above: Performed By: #### C BCWD, SED, PLCON ####[facility] [place] [address] Lab Director: Rodríguez Suarez MD Comp Metabolic Profon 2023 Albumin [Mass/Vol] 3.5 g/dL Normal 3.5-5.2 [facility] Comment on above: Performed By: #### C P, CRP ####[facility] [place] [address] Lab Director: Rodríguez Suarez MD Alkaline Phos 214 U/L High 35-104 [facility] Comment on above: Performed By: #### C P, CRP ####[facility] [place] [address] Lab Director: Rodríguez Suarez MD ALT [Catalytic activity/Vol] 163 U/L High 0-32 [facility] Comment on above: Performed By: #### C P, CRP ####[facility] [place] [address] Lab Director: Rodríguez Suarez MD Anion gap [Moles/Vol] 9 mmol/L Normal 7-16 [facility] Comment on above: Performed By: #### C P, CRP ####[facility] [place] [address] Lab Director: Rodríguez Suarez MD AST [Catalytic activity/Vol] 85 U/L High 0-31 [facility] Comment on above: Performed By: #### C P, CRP ####[place] [address] [place] [address] Lab Director: Rodríguez Suarez MD Bilirubin [Mass/Vol] 0.4 mg/dL Normal 0.0-1.2 [facility] Comment on above: Performed By: #### C P, CRP ####[place] [address] [place] [phone] Director: Rodríguez Suarez MD Calcium [Mass/Vol] 8.7 mg/dL Normal 8.6-10.2 [facility] Comment on above: Performed By: #### C P, CRP ####[place] [address] [place] [address] Lab Director: Rodríguez Suarez MD Chloride [Moles/Vol] 104 mmol/L Normal 98-107 [facility] Comment on above: Performed By: #### C P, CRP ####[place] [address] [place] [phone] Director: Rodríguez Suarez MD CO2 [Moles/Vol] 26 mmol/L Normal 22-29 [facility] Comment on above: Performed By: #### C P, CRP ####[place] [address] [place] [phone] Director: Rodríguez Suarez MD Creatinine [Mass/Vol] 0.4 mg/dL Low 0.50-1.00 [facility] Comment on above: Performed By: #### C P, CRP ####[place] [address] [place] [address] Lab Director: Rodríguez Suarez MD GFR/1.73 sq M.predicted among non-blacks MDRD (S/P/Bld) [Vol rate/Area] mL/min/{1.73_m2} Normal >60 [facility] Comment on above: Result Comment: These results are not intended for use in patients <18 years of age. eGFR results are calculated without a race factor using the 2020 CKD-EPI equation. Careful clinical correlation is recommended, particularly when comparing to results calculated using previous equations. The CKD-EPI equation is less accurate in patients with extremes of muscle mass, extra-renal metabolism of creatine, excessive creatine ingestion, or following therapy that affects renal tubular secretion. Performed By: #### C P, CRP ####[place], [place] [phone] Director: Rodríguez Suarez MD Glucose [Mass/Vol] 311 mg/dL High 74-99 [facility] Comment on above: Performed By: #### C P, CRP ####[place], [place] [phone] Director: Rodríguez Suarez MD Potassium [Moles/Vol] 3.9 mmol/L Normal 3.5-5.0 [facility] Comment on above: Performed By: #### C P, CRP ####[place] [address] Lab Director: Rodríguez Suarez MD Protein [Mass/Vol] 6.2 g/dL Low 6.4-8.3 [facility] Comment on above: Performed By: #### C P, CRP ####[address] [address] Lab Director: Rodríguez Suarez MD Sodium [Moles/Vol] 139 mmol/L Normal 132-146 [facility] Comment on above: Performed By: #### C P, CRP ####[place] [address], [place] [phone] Director: Rodríguez Suarez MD Urea nitrogen [Mass/Vol] 17 mg/dL Normal 6-20 [facility] Comment on above: Performed By: #### C P, CRP ####[address], [place] [phone] Director: Rodríguez Suarez MD Drug Scr, Abuse, Uron 2023 Amphetamine(s),Ur Negative Normal NEG [facility] Comment on above: Result Comment: Cuto ff: 1000 ng/mL Performed By: #### D AU ####[address], [place] [phone] Director: Rodríguez Suarez MD Barbiturate(s),Ur Negative Normal NEG [facility] Comment on above: Result Comment: Cuto ff: 200 ng/ml Performed By: #### D AU ####[place] [address] [facility], [place] [phone] Director: Rodríguez Suarez MD Benzodiazepine(s) Negative Normal NEG [facility] Comment on above: Result Comment: Cuto ff: 200 ng/ml Performed By: #### D AU ####[address], [place] [phone] Director: Rodríguez Suarez MD Buprenorphrine, Ur Negative Normal NEG [facility] Comment on above: Result Comment: Cuto ff: 5 ng/ml Performed By: #### D AU ####[place] [address] [facility], [place] [phone] Director: Rodríguez Suarez MD Cannabinoid(s),Ur Negative Normal NEG [facility] Comment on above: Result Comment: Cuto ff: 50 ng/ml Performed By: #### D AU ####[address], [place] [phone] Director: Rodríguez Suarez MD Cocaine Metabolite Negative Normal NEG [facility] Comment on above: Result Comment: Cuto ff: 300 ng/ml Performed By: #### D AU ####[address], [place] [phone] Director: Rodríguez Suarez MD Fentanyl, Urine Negative Normal NEG [facility] Comment on above: Result Comment: Cuto ff: 1.0 ng/ml Performed By: #### D AU ####[address], [place] [phone])[phone] Director: Rodríguez Suarez MD Interpretive Info These drug screen results are for medical purposes only and should not be Normal [facility] Comment on above: Result Comment: cons idered definitive or confirmed. The drug methodology concentration value must be greater than or equal to the cutoff to be reported as positive. Confirmtory testing orders and/or interpretive sceening questions can be directed to toxicology at [phone]. The absence of expected drug(s) and/or metabolite(s) may be due to inappropriate timing of specimen collection relative to drug administration, poor drug absorption, diluted/adulterated urine, or limitations of screening methodology. Performed By: #### D AU ####[address], [place] [phone] Director: Rodríguez Suarez MD Methadone Ql (U) Negative Normal NEG [facility] Comment on above: Result Comment: Cuto ff: 300 ng/ml Performed By: #### D AU ####[address] [place] [address] Lab Director: Rodríguez Suarez MD Opiate(s), Ur Negative Normal NEG [facility] Comment on above: Result Comment: Cuto ff: 300 ng/ml Note: The Opiate screen is not intended to detect Oxycodone. Performed By: #### D AU ####[place] [address] [place] [address] Lab Director: Rodríguez Suarez MD Oxycodone, Urine Negative Normal NEG [facility] Comment on above: Result Comment: Cuto ff: 100 ng/ml Performed By: #### D AU ####[address], [place] [phone] Director: Rodríguez Suarez MD Phencyclidine, Ur Negative Normal NEG [facility] Comment on above: Result Comment: Cuto ff: 25 ng/ml Performed By: #### D AU ####[address], [place] [phone] Director: Rodríguez Suarez MD Platelet Confirmationon 01-13 Platelet Confirmation The automated plat elet count may be artifactually decreased due to platelet Normal [facility] Comment on above: Result Comment: clum ping. Performed By: #### C MEENA SED, PLCON ####[address], [place] [phone])[phone] Director: Rodríguez Suarez MD Sedimentation Rateon 024 Sedimentation Rate 9 mm/Hr Normal 0-20 [facility] Comment on above: Performed By: #### C MEENA, SED, PLCON ####[address], [place] [phone] Director: Rodríguez Suarez MD XR FOOT RIGHT (MIN 3 VIEWS)o n 01-29-2024 XR FOOT RIGHT (MIN 3 VIEWS) EXAMINATION: THREE XRAY VIEWS OF THE RIGHT FOOT 01/29/2024 1:20 pm COMPARISON: None. 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 No radiographic evidence for fracture. No clear radiographic findings of osteomyelitis. Consider short-term follow-up or further evaluation with MRI as indicated. Calcaneal spurs. Mild nonspecific forefoot soft tissue swelling. IMPRESSION: No clear radiographic findings of osteomyelitis. Consider short-term follow-up or further evaluation with MRI as indicated. Interpreted by: Mc Pepper MD Signed by: Mc Pepper MD 01/29/24 Final result Normal [facility] Comment on above: Order Comment: Reaso n for exam:->diabetic foot ulcer XR FOOT RIGHT (MIN 3 VIEWS)o n 01-23-2024 XR FOOT RIGHT (MIN 3 VIEWS) EXAMINATION: THREE XRAY VIEWS OF THE RIGHT FOOT 01/23/2024 1:06 am COMPARISON: None. HISTORY: ORDERING SYSTEM PROVIDED HISTORY: OSTEO TECHNOLOGIST PROVIDED HISTORY: Reason for exam:->OSTEO FINDINGS: There is no evidence of acute fracture. There is normal alignment of the tarsometatarsal joints. No acute joint abnormality. No focal osseous lesion. No focal soft tissue abnormality. IMPRESSION: No acute osseous abnormality. Interpreted by: Ana Cristina José MD Signed by: Ana Cristina José MD 01/23/24 Final result Normal [facility] Comment on above: Order Comment: Reaso n for exam:->OSTEO CBC W Auto Differential pane l (Bld)on 01-12-2024 Basophils (Bld) [#/Vol] 10*3/uL Normal <0.11 [facility] Comment on above: Order Comment: Speci men Type: URINE SPECIMEN Ordering Facility: [facility] Address: [address] [place] [address] Performed By: #### 2 4356-8 #### [facility] CLIA [id number] [address] [place] [address] [place] Basophils/100 WBC (Bld) 0.5 % Normal [facility] Comment on above: Order Comment: Speci men Type: URINE SPECIMEN Ordering Facility: [facility] Address: [address] [place] [address] Performed By: #### 2 4356-8 #### [facility] CLIA [id number] [address] [place] [address] [place] Differential cell count method Nom (Bld) Auto Normal [facility] Comment on above: Order Comment: Speci men Type: URINE SPECIMEN Ordering Facility: [facility] Address: [address] [place] [address] Performed By: #### 2 4356-8 #### [facility] CLIA [id number] [address] [place] [address] [place] Eosinophils (Bld) [#/Vol] 0.14 10*3/uL Normal <0.46 [facility] Comment on above: Order Comment: Speci men Type: URINE SPECIMEN Ordering Facility: [facility] Address: [address] [place] [address] Performed By: #### 2 4356-8 #### [facility] CLIA [id number] [address] [place] [address] [place] Eosinophils/100 WBC (Bld) 3.2 % Normal [facility] Comment on above: Order Comment: Speci men Type: URINE SPECIMEN Ordering Facility: [facility] Address: [address] [place] [address] Performed By: #### 2 4356-8 #### [facility] CLIA [id number] [address] [place] [address] STATES [facility] Erythrocyte distribution width (RBC) [Ratio] 12.4 % Normal 11.5-15.0 [facility] Comment on above: Order Comment: Speci men Type: URINE SPECIMEN Ordering Facility: [facility] Address: [address] [place] [address] Performed By: #### 2 4356-8 #### [facility] CLIA [id number] [address] [place] [address] Hematocrit (Bld) [Volume fraction] 39.8 % Normal 36.0-46.0 [facility] Comment on above: Order Comment: Speci men Type: URINE SPECIMEN Ordering Facility: [facility] Address: [address] [place] [address] Performed By: #### 2 4356-8 #### [facility] CLIA [id number] [address] [place] [address] [place] Hemoglobin (Bld) [Mass/Vol] 13.2 g/dL Normal 11.5-15.5 [facility] Comment on above: Order Comment: Speci men Type: URINE SPECIMEN Ordering Facility: [facility] Address: [address] [place] [address] Performed By: #### 2 4356-8 #### [facility] CLIA [id number] [address] [place] [address] [place] Immature granulocytes (Bld) [#/Vol] 0.07 10*3/uL Normal <0.10 [facility] Comment on above: Order Comment: Speci men Type: URINE SPECIMEN Ordering Facility: [facility] Address: [address] [place] [address] Performed By: #### 2 4356-8 #### [facility] CLIA [id number] [address] [place] [address] [place] Immature granulocytes/100 WBC (Bld) 1.6 % Normal [facility] Comment on above: Order Comment: Speci men Type: URINE SPECIMEN Ordering Facility: [facility] Address: [address] [place] [address] Performed By: #### 2 4356-8 #### [facility] CLIA [id number] [address] [place] [address] [place] Lymphocytes (Bld) [#/Vol] 1.15 10*3/uL Normal 1.00-4.00 [facility] Comment on above: Order Comment: Speci men Type: URINE SPECIMEN Ordering Facility: [facility] Address: [address] [place] [address] Performed By: #### 2 4356-8 #### [facility] CLIA [id number] [address] [place] [address] [place] Lymphocytes/100 WBC (Bld) 26.1 % Normal [facility] Comment on above: Order Comment: Speci men Type: URINE SPECIMEN Ordering Facility: [facility] Address: [address] [place] [address] Performed By: #### 2 4356-8 #### [facility] CLIA [id number] [address] [place] [address] MCH (RBC) [Entitic mass] 29.2 pg Normal 26.0-34.0 [facility] Comment on above: Order Comment: Speci men Type: URINE SPECIMEN Ordering Facility: [facility] Address: [address] [place] [address] Performed By: #### 2 4356-8 #### [facility] CLIA [id number] [address] [place] [address] [place] MCHC (RBC) [Mass/Vol] 33.2 g/dL Normal 30.5-36.0 [facility] Comment on above: Order Comment: Speci men Type: URINE SPECIMEN Ordering Facility: [facility] Address: [address] [place] [address] Performed By: #### 2 4356-8 #### [facility] CLIA [id number] [address] [place] [address] [place] MCV (RBC) [Entitic vol] 88.1 fL Normal 80.0-100.0 [facility] Comment on above: Order Comment: Speci men Type: URINE SPECIMEN Ordering Facility: [facility] Address: [address] [place] [address] Performed By: #### 2 4356-8 #### [facility] CLIA [id number] [address] [place] [address] [place] Monocytes (Bld) [#/Vol] 0.46 10*3/uL Normal <0.87 [facility] Comment on above: Order Comment: Speci men Type: URINE SPECIMEN Ordering Facility: [facility] Address: [address] [place] [address] Performed By: #### 2 4356-8 #### [facility] CLIA [id number] [address] [place] [address] [place] Monocytes/100 WBC (Bld) 10.5 % Normal [facility] Comment on above: Order Comment: Speci men Type: URINE SPECIMEN Ordering Facility: [facility] Address: [address] [place] [address] Performed By: #### 2 4356-8 #### [facility] CLIA [id number] [address] [place] [address] [place] Neutrophils (Bld) [#/Vol] 2.56 10*3/uL Normal 1.45-7.50 [facility] Comment on above: Order Comment: Speci men Type: URINE SPECIMEN Ordering Facility: [facility] Address: [address] [place] [address] Performed By: #### 2 4356-8 #### [facility] CLIA [id number] [address] [place] [address] [place] Neutrophils/100 WBC (Bld) 58.1 % Normal [facility] Comment on above: Order Comment: Speci men Type: URINE SPECIMEN Ordering Facility: [facility] Address: [address] [place] [address] Performed By: #### 2 4356-8 #### [facility] CLIA [id number] [address] [place] [address] [place] Nucleated RBC (Bld) [#/Vol] 10*3/uL Normal <0.01 [facility] Comment on above: Order Comment: Speci men Type: URINE SPECIMEN Ordering Facility: [facility] Address: [address] [place] [address] Performed By: #### 2 4356-8 #### [facility] CLIA [id number] [address] [place] [address] [place] Nucleated RBC/100 WBC (Bld) [Ratio] 0.0 /[address] [facility] Comment on above: Order Comment: Speci men Type: URINE SPECIMEN Ordering Facility: [facility] Address: [address] [place] [address] Performed By: #### 2 4356-8 #### [facility] CLIA [id number] [address] [place] Platelet mean volume (Bld) [Entitic vol] 10.5 fL Normal 9.0-12.7 [facility] Comment on above: Order Comment: Speci men Type: URINE SPECIMEN Ordering Facility: [facility] Address: [address] [place] [address] Performed By: #### 2 4356-8 #### [facility] CLIA [id number] [address] [place] [address] [place] Platelets (Bld) [#/Vol] 154 10*3/uL Normal 150-400 [facility] Comment on above: Order Comment: Speci men Type: URINE SPECIMEN Ordering Facility: [facility] Address: [address] [place] [address] Performed By: #### 2 4356-8 #### [facility] CLIA [id number] [address] [place] [address] [place] RBC (Bld) [#/Vol] 4.52 10*6/uL Normal 3.90-5.20 [facility] Comment on above: Order Comment: Speci men Type: URINE SPECIMEN Ordering Facility: [facility] Address: [address] [place] [address] Performed By: #### 2 4356-8 #### [facility] CLIA [id number] [address] [place] [address] [place] WBC (Bld) [#/Vol] 4.40 10*3/uL Normal 3.70-11.00 [facility] Comment on above: Order Comment: Speci men Type: URINE SPECIMEN Ordering Facility: [facility] Address: [address] [place] [address] Performed By: #### 2 4356-8 #### [facility] CLIA [id number] [address] [place], [place] [id number] [facility] [place] Comprehensive metabolic 2000 panelon 01-12-2024 Albumin [Mass/Vol] 2.8 g/dL Low 3.2-5.0 [facility] Comment on above: Order Comment: Speci men Type: URINE SPECIMEN Ordering Facility: [facility] Address: [address] [place] [address] Performed By: #### 2 4356-8 #### [facility] CLIA [id number] [address] [place] [address] [place] ALP [Catalytic activity/Vol] 203 U/L High 45-117 [facility] Comment on above: Order Comment: Speci men Type: URINE SPECIMEN Ordering Facility: [facility] Address: [address] [place] [address] Performed By: #### 2 4356-8 #### [facility] CLIA [id number] [address] [place] [address] [place] ALT [Catalytic activity/Vol] 296 U/L High 13-61 [facility] Comment on above: Order Comment: Speci men Type: URINE SPECIMEN Ordering Facility: [facility] Address: [address] [place] [address] Result Comment: Resu lts may be falsely depressed after the administration of Sulfasalazine and/or Sulfapyridine. Performed By: #### 2 4356-8 #### [facility] CLIA [id number] [address] [place] [address] [place] Anion gap [Moles/Vol] 5 mmol/L Normal 5-16 [facility] Comment on above: Order Comment: Speci men Type: URINE SPECIMEN Ordering Facility: [facility] Address: [address] [place] [address] Performed By: #### 2 4356-8 #### [facility] CLIA [id number] [address] [place] [address] [place] AST [Catalytic activity/Vol] 186 U/L High 8-34 [facility] Comment on above: Order Comment: Speci men Type: URINE SPECIMEN Ordering Facility: [facility] Address: [address] [place] [address] Result Comment: Resu lts may be falsely depressed after the administration of Sulfasalazine and/or Sulfapyridine. Performed By: #### 2 4356-8 #### [facility] CLIA [id number] [address] [place] [address] [place] Bilirubin [Mass/Vol] 0.3 mg/dL Normal 0.2-1.0 [facility] Comment on above: Order Comment: Speci men Type: URINE SPECIMEN Ordering Facility: [facility] Address: [address] [place] [address] Performed By: #### 2 4356-8 #### [facility] CLIA [id number] [address] [place] [address] [place] Calcium [Mass/Vol] 9.7 mg/dL Normal 8.5-10.5 [facility] Comment on above: Order Comment: Speci men Type: URINE SPECIMEN Ordering Facility: [facility] Address: [address] [place] [address] Performed By: #### 2 4356-8 #### [facility] CLIA [id number] [address] [place] [address] [place] Chloride [Moles/Vol] 107 mmol/L Normal 98-107 [facility] Comment on above: Order Comment: Speci men Type: URINE SPECIMEN Ordering Facility: [facility] Address: [address] [place] [address] Performed By: #### 2 4356-8 #### [facility] CLIA [id number] [address] [place] [address] [place] CO2 [Moles/Vol] 29 mmol/L Normal 21-32 [facility] Comment on above: Order Comment: Speci men Type: URINE SPECIMEN Ordering Facility: [facility] Address: [address] [place] [address] Performed By: #### 2 4356-8 #### [facility] CLIA [id number] [address] [place] [address] [place] Creatinine [Mass/Vol] 0.35 mg/dL Low 0.51-0.95 [facility] Comment on above: Order Comment: Speci men Type: URINE SPECIMEN Ordering Facility: [facility] Address: [address] [place] [address] Result Comment: Camila ents receiving either N-Acetylcysteine (NAC) or Metamizole prior to venipuncture, may have falsely depressed results.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 Father Arthritis Mother Diabetes Father Cancer Father [place]'s Disease, dementia Osteoporosis Mother Cancer Other great aunt (mat) - brain CA Cancer Maternal Aunt 2 aunts and great-grandmother needed hysterectomies - grandmother's was cancer, pt not sure re: aunts No Family History Other Heart disease Father and brother depressed, Other brother Bipolar. Social History Tobacco Use Smoking status: Every Day Current packs/day: 0.00 Average packs/day: 0.5 packs/day for 10.0 years (5.0 ttl pk-yrs) Types: Cigarettes Start date: 09/01/2003 Last attempt to quit: 08/31/2013 Years since quittin.3 Smokeless tobacco: Never Tobacco comments: down to 1 cigs per day Vaping Use Vaping status: Never Used Substance Use Topics Alcohol use: No Comment: quit 09/2003 Drug use: Yes Comment: hx street drug abuse, crack cocaine. Quit 05/2013 QUEtiapine XR (SEROQUEL XR) 150 mg Tb24, Take 150 mg by mouth daily at bedtime., Disp: , Rfl: , 12/18/2023 insulin lispro (HUMALOG KWIKPEN) 100 unit/mL, Inject subcutaneously three times a day before meals. Unknown sliding scale, Disp: , Rfl: , Unknown hydrOXYzine pamoate (VISTARIL) 50 mg capsule, Take 50 mg by mouth three times a day as needed for anxiety., Disp: , Rfl: , 12/17 (more content not included)... Normal [facility] POTASSIUMon 12-26-2023 Potassium [Moles/Vol] 4.2 mmol/L Normal 3.5-5.1 [facility] Comment on above: Order Comment: Fani burkett Type: BLOOD SPECIMEN Ordering Facility: [facility] Address: [address] [place] [address] Performed By: #### [place], 48025-4, 3040-3, 10457-5 #### [facility] CLIA [id number] [address] [place] [place] [address] [place] B-HYDROXYBUTYRATEon 12-25-19 24 Beta hydroxybutyrate [Moles/Vol] 0.08 mmol/L Normal 0.02-0.27 [facility] Comment on above: Order Comment: Fani burkett Type: BLOOD SPECIMEN Ordering Facility: [facility] Address: [address] [place] [address] Result Comment: Jenniffero tony ketone levels will vary depending on several factors (for example, food intake, alcohol intake and conditions such as ketoacidosis). Patients should be fasting 12 hours prior to collection. Patient samples with high levels of M-Protein (i.e. Gammopathy) may affect the accuracy of this assay. Performed By: #### [place], 65586-3, 3040-3, 91396-4 #### [facility] CLIA [id number] [address] [place] [place] [address] [place] Bacteria Ur Culton Bacteria identified Cx Nom (U) ORGANISM ID: 1 10,000 -<50,000 CFU/ml Mixed microbiota No further workup. Mixed microbiota can be due to???urine???contamina tion with skin bacteria at time of collection or presence of a long-term urinary catheter. If a new culture is needed, please consider re-education of the patient on proper midstream collection technique or straight catheterization for???urine???collecti on. Normal [facility] Comment on above: Performed By: #### [place], [address]-9, 0-3, #### [facility] CLIA [id number] [address] [place] [address] STATES OF [facility] C. trachomatis+N. gonorrhoea e DNA SIREAN+probe Ql (Unsp spec)on 12-25-2023 C. trachomatis rRNA SIRENA+probe Ql (Unsp spec) Negative Normal Negative for Chlamydia trachomatis by amplificaton [facility] Comment on above: Order Comment: Speci men Type: VENOUS BLOOD SPECIMEN Ordering Facility: [facility] Address: [address] [place] [address] Performed By: #### 2 4344-4 #### [facility] CLIA [id number] [address] [place] [address] [place] N. gonorrhoeae rRNA SIRENA+probe Ql (Unsp spec) Negative Normal Negative for Neisseria gonorrhoeae by amplification [facility] Comment on above: Order Comment: Speci men Type: VENOUS BLOOD SPECIMEN Ordering Facility: [facility] Address: [address] [place] [address] Performed By: #### 2 4344-4 #### [facility] CLIA [id number] [address] [place] [address] [place] CBC W Auto Differential pane l (Bld)on 12-25-2023 Basophils (Bld) [#/Vol] 0.03 10*3/uL Normal <0.11 [facility] Comment on above: Order Comment: Speci men Type: BLOOD SPECIMEN Ordering Facility: [facility] Address: [address] [place] [address] Performed By: #### 5 7021-8 #### [facility] CLIA [id number] [address] [place] [address] [place] Basophils/100 WBC (Bld) 0.7 % Normal [facility] Comment on above: Order Comment: Speci men Type: BLOOD SPECIMEN Ordering Facility: [facility] Address: [address] [place] [address] Performed By: #### 5 7021-8 #### [facility] CLIA [id number] [address] [place] [address] [place] Differential cell count method Nom (Bld) Auto Normal [facility] Comment on above: Order Comment: Speci men Type: BLOOD SPECIMEN Ordering Facility: [facility] Address: [address] [place] [address] Performed By: #### 5 7021-8 #### [facility] CLIA [id number] [address] [place] [address] [place] Eosinophils (Bld) [#/Vol] 0.14 10*3/uL Normal <0.46 [facility] Comment on above: Order Comment: Speci men Type: BLOOD SPECIMEN Ordering Facility: [facility] Address: [address] [place] [address] Performed By: #### 5 7021-8 #### [facility] CLIA [id number] [address] [place] [address] [place] Eosinophils/100 WBC (Bld) 3.3 % Normal [facility] Comment on above: Order Comment: Speci men Type: BLOOD SPECIMEN Ordering Facility: [facility] Address: [address] [place] [address] Performed By: #### 5 7021-8 #### [facility] CLIA [id number] [address] [place] [address] [place] Erythrocyte distribution width (RBC) [Ratio] 12.4 % Normal 11.5-15.0 [facility] Comment on above: Order Comment: Speci men Type: BLOOD SPECIMEN Ordering Facility: [facility] Address: [address] [place] [address] Performed By: #### 5 7021-8 #### [facility] CLIA [id number] [address] [place] [address] [place] Hematocrit (Bld) [Volume fraction] 40.4 % Normal 36.0-46.0 [facility] Comment on above: Order Comment: Speci men Type: BLOOD SPECIMEN Ordering Facility: [facility] Address: [address] [place] [address] Performed By: #### 5 7021-8 #### [facility] CLIA [id number] [address] [place] [address] [place] Hemoglobin (Bld) [Mass/Vol] 13.8 g/dL Normal 11.5-15.5 [facility] Comment on above: Order Comment: Speci men Type: BLOOD SPECIMEN Ordering Facility: [facility] Address: [address] [place] [address] Performed By: #### 5 7021-8 #### [facility] CLIA [id number] [address] [place] [address] [place] Immature granulocytes (Bld) [#/Vol] 0.04 10*3/uL Normal <0.10 [facility] Comment on above: Order Comment: Speci men Type: BLOOD SPECIMEN Ordering Facility: [facility] Address: [address] [place] [address] Performed By: #### 5 7021-8 #### [facility] CLIA [id number] [address] [place] [address] [place] Immature granulocytes/100 WBC (Bld) 0.9 % Normal [facility] Comment on above: Order Comment: Speci men Type: BLOOD SPECIMEN Ordering Facility: [facility] Address: [address] [place] [address] Performed By: #### 5 7021-8 #### [facility] CLIA [id number] [address] [place] [address] [place] Lymphocytes (Bld) [#/Vol] 1.22 10*3/uL Normal 1.00-4.00 [facility] Comment on above: Order Comment: Speci men Type: BLOOD SPECIMEN Ordering Facility: [facility] Address: [address] [place] [address] Performed By: #### 5 7021-8 #### [facility] CLIA [id number] [address] [place] [address] [place] Lymphocytes/100 WBC (Bld) 28.4 % Normal [facility] Comment on above: Order Comment: Speci men Type: BLOOD SPECIMEN Ordering Facility: [facility] Address: [address] [place] [address] Performed By: #### 5 7021-8 #### [facility] CLIA [id number] [address] [place] [address] [place] MCH (RBC) [Entitic mass] 29.2 pg Normal 26.0-34.0 [facility] Comment on above: Order Comment: Speci men Type: BLOOD SPECIMEN Ordering Facility: [facility] Address: [address] [place] [address] Performed By: #### 5 7021-8 #### [facility] CLIA [id number] [address] [place] [address] [place] MCHC (RBC) [Mass/Vol] 34.2 g/dL Normal 30.5-36.0 [facility] Comment on above: Order Comment: Speci men Type: BLOOD SPECIMEN Ordering Facility: [facility] Address: [address] [place] [address] Performed By: #### 5 7021-8 #### [facility] CLIA [id number] [address] [place] [address] [place] MCV (RBC) [Entitic vol] 85.4 fL Normal 80.0-100.0 [facility] Comment on above: Order Comment: Speci men Type: BLOOD SPECIMEN Ordering Facility: [facility] Address: [address] [place] [address] Performed By: #### 5 7021-8 #### [facility] CLIA [id number] [address] [place] [address] [place] Monocytes (Bld) [#/Vol] 0.48 10*3/uL Normal <0.87 [facility] Comment on above: Order Comment: Speci men Type: BLOOD SPECIMEN Ordering Facility: [facility] Address: [facility] [place] [address] Performed By: #### 5 7021-8 #### [facility] CLIA [id number] [address] [place] [address] [place] Monocytes/100 WBC (Bld) 11.2 % Normal [facility] Comment on above: Order Comment: Speci men Type: BLOOD SPECIMEN Ordering Facility: [facility] Address: [address] [place] [address] Performed By: #### 5 7021-8 #### [facility] CLIA [id number] [address] [place] [address] [place] Neutrophils (Bld) [#/Vol] 2.38 10*3/uL Normal 1.45-7.50 [facility] Comment on above: Order Comment: Speci men Type: BLOOD SPECIMEN Ordering Facility: [facility] Address: [address] [place] [address] Performed By: #### 5 7021-8 #### [facility] CLIA [id number] [address] [place] [address] [place] Neutrophils/100 WBC (Bld) 55.5 % Normal [facility] Comment on above: Order Comment: Speci men Type: BLOOD SPECIMEN Ordering Facility: [facility] Address: [address] [place] [address] Performed By: #### 5 7021-8 #### [facility] CLIA [id number] [address] [place] [address] [place] Nucleated RBC (Bld) [#/Vol] 10*3/uL Normal <0.01 [facility] Comment on above: Order Comment: Speci men Type: BLOOD SPECIMEN Ordering Facility: [facility] Address: [address] [place] [address] Performed By: #### 5 7021-8 #### [facility] CLIA [id number] [address] [place] [address] [place] Nucleated RBC/100 WBC (Bld) [Ratio] 0.0 /[address] [facility] Comment on above: Order Comment: Speci men Type: BLOOD SPECIMEN Ordering Facility: [facility] Address: [address] [place] [address] Performed By: #### 5 7021-8 #### [facility] CLIA [id number] [address] [place] [address] [place] Platelet mean volume (Bld) [Entitic vol] 11.1 fL Normal 9.0-12.7 [facility] Comment on above: Order Comment: Speci men Type: BLOOD SPECIMEN Ordering Facility: [facility] Address: [address] [place] [address] Performed By: #### 5 7021-8 #### [facility] CLIA [id number] [address] [place] [address] [place] Platelets (Bld) [#/Vol] 141 10*3/uL Low 150-400 [facility] Comment on above: Order Comment: Speci men Type: BLOOD SPECIMEN Ordering Facility: [facility] Address: [address] [place] [address] Performed By: #### 5 7021-8 #### [facility] CLIA [id number] [address] [place] [address] [place] RBC (Bld) [#/Vol] 4.73 10*6/uL Normal 3.90-5.20 [facility] Comment on above: Order Comment: Speci men Type: BLOOD SPECIMEN Ordering Facility: [facility] Address: [address] [place] [id number] Performed By: #### 5 7021-8 #### [facility] CLIA [id number] [address] [place] [address] [place] WBC (Bld) [#/Vol] 4.29 10*3/uL Normal 3.70-11.00 [facility] Comment on above: Order Comment: Speci men Type: BLOOD SPECIMEN Ordering Facility: [facility] Address: [address] [place], [place] [address] Performed By: #### 5 7021-8 #### [facility] CLIA [id number] [address] [place] [address] CBC panel Auto (Bld)on 12-24 Erythrocyte distribution width (RBC) [Ratio] 12.5 % Normal 11.5-15.0 [facility] Comment on above: Order Comment: Speci men Type: BLOOD SPECIMEN Ordering Facility: [facility] Address: [address] [place] [address] Performed By: #### 5 7021-8 #### [facility] CLIA [id number] [address] [place] [address] [place] Hematocrit (Bld) [Volume fraction] 39.8 % Normal 36.0-46.0 [facility] Comment on above: Order Comment: Speci men Type: BLOOD SPECIMEN Ordering Facility: [facility] Address: [address] [place] [address] Performed By: #### 5 7021-8 #### [facility] CLIA [id number] [address] [place] [address] [place] Hemoglobin (Bld) [Mass/Vol] 13.7 g/dL Normal 11.5-15.5 [facility] Comment on above: Order Comment: Speci men Type: BLOOD SPECIMEN Ordering Facility: [facility] Address: [address] [place] [address] Performed By: #### 5 7021-8 #### [facility] CLIA [id number] [address] [place] [address] [place] MCH (RBC) [Entitic mass] 29.6 pg Normal 26.0-34.0 [facility] Comment on above: Order Comment: Speci men Type: BLOOD SPECIMEN Ordering Facility: [facility] Address: [address] [place] [address] Performed By: #### 5 7021-8 #### [facility] CLIA [id number] [address] [place] [address] [place] MCHC (RBC) [Mass/Vol] 34.4 g/dL Normal 30.5-36.0 [facility] Comment on above: Order Comment: Speci men Type: BLOOD SPECIMEN Ordering Facility: [facility] Address: [address] [place] [address] Performed By: #### 5 7021-8 #### [facility] CLIA [id number] [address] [place] [address] [place] MCV (RBC) [Entitic vol] 86.0 fL Normal 80.0-100.0 [facility] Comment on above: Order Comment: Speci men Type: BLOOD SPECIMEN Ordering Facility: [facility] Address: [address] [place] [address] Performed By: #### 5 7021-8 #### [facility] CLIA [id number] [address] [place] [address] [place] Nucleated RBC (Bld) [#/Vol] 10*3/uL Normal <0.01 [facility] Comment on above: Order Comment: Speci men Type: BLOOD SPECIMEN Ordering Facility: [facility] Address: [address] [place] [address] Performed By: #### 5 7021-8 #### [facility] CLIA [id number] [address] [place] [address] [place] Platelet mean volume (Bld) [Entitic vol] 11.1 fL Normal 9.0-12.7 [facility] Comment on above: Order Comment: Speci men Type: BLOOD SPECIMEN Ordering Facility: [facility] Address: [address] [place] [address] Performed By: #### 5 7021-8 #### [facility] CLIA [id number] [address] [place] [address] [place] Platelets (Bld) [#/Vol] 150 10*3/uL Normal 150-400 [facility] Comment on above: Order Comment: Speci men Type: BLOOD SPECIMEN Ordering Facility: [facility] Address: [address] [place] [address] Performed By: #### 5 7021-8 #### [facility] CLIA [id number] [address] [place] [address] [place] RBC (Bld) [#/Vol] 4.63 10*6/uL Normal 3.90-5.20 [facility] Comment on above: Order Comment: Speci men Type: BLOOD SPECIMEN Ordering Facility: [facility] Address: [address] [place] [address] Performed By: #### 5 7021-8 #### [facility] CLIA [id number] [address] [place] [address] OF [facility] WBC (Bld) [#/Vol] 4.17 10*3/uL Normal 3.70-11.00 [facility] Comment on above: Order Comment: Speci men Type: BLOOD SPECIMEN Ordering Facility: [facility] Address: [address] [place] [address] Performed By: #### 5 7021-8 #### [facility] CLIA [id number] [address] [place] [address] [place] CK SerPl-cCncon 12-25-2023 CK [Catalytic activity/Vol] 29 U/L Normal 28-152 [facility] Comment on above: Order Comment: Speci men Type: BLOOD SPECIMEN Ordering Facility: [facility] Address: [address] [place] [address] Performed By: #### 5 7021-8 #### [facility] CLIA [id number] [address] [place] [address] [place] [address] ABD/PEL W IVCONon 024 CT ABD/PEL W IVCON * * *Final Report* * * DATE OF EXAM: Dec 25 2023 2:30AM [facility] 0530 - CT ABD/PEL W IVCON / PROCEDURE REASON: Abdominal pain, acute, nonlocalized * * * * Physician Interpretation * * * * EXAMINATION: CT ABD/PEL W IVCON INDICATION: Abdominal pain, acute, nonlocalized Abdominal pain, acute, nonlocalized, history of sarcoidosis COMPARISON: 05/03/2011 TECHNIQUE: CT of the abdomen and pelvis was performed using standard technique, scanning from just above the dome of the diaphragm to the pubic symphysis. Contrast: Intra-Articular: 100 ml of Omnipaque 350 : ml of CT Radiation dose: Integrated Dose-length product (DLP) for this visit = 730.68 mGy*cm. CT Dose Reduction Employed: Automated exposure control(AEC) and iterative recon FINDINGS: Lower Thorax: Multiple bilateral tiny nodules. Scattered larger nodules up to 6 mm. Liver: Nodular contour with heterogeneous enhancement. Periportal edema.. Gallbladder/Biliary: Mild mild dilation status post cholecystectomy. Spleen: Upper limits of normal, 12-13 cm. Pancreas: Unremarkable. Adrenals: No mass. Kidneys: Renal cysts. No hydronephrosis. Vasculature: Atherosclerotic disease. No abdominal aortic aneurysm. GI Tract: Moderate stool burden. Distal esophageal wall thickening. No evidence of obstruction. Pelvis: Diffuse bladder wall thickening.. Mesentery/Peritoneum/R etroperitoneum: Small free fluid in the abdomen and pelvis Lymph Nodes: No lymphadenopathy. Bones and soft tissues: Degenerative changes. Mild T12 superior endplate compression. Small periumbilical and infraumbilical fat-containing hernias. Disease Education Specialist (topogram) images: No additional findings. IMPRESSION: 1. Distal esophageal wall thickening, which can be seen with esophagitis. 2. Heterogeneous liver with nodular contour, which may be due to cirrhosis and/or involvement by sarcoidosis. 3. Bladder wall thickening; correlate with urinalysis for cystitis. 4. Partially imaged tiny bilateral pulmonary nodules. Suggest follow-up chest CT. ACTIONABLE RESULT: FOLLOW-UP Acuity: Actionable Findings: Thoracic-Lung nodules Routing code: RI_[email or web address] Recommendation: CT Chest W IVCON Time Frame: At the discretion of the clinical team. COMMUNICATION: Results will be communicated with the ordering provider via [employer] staff message or phone message by [employer] within 2 business days of report finalization. --END OF FINDING-- Data Integration Developer: STACY Transcribe Date/Time: Dec 25 2023 4:12A Dictated by : ISA ACOSTA MD This examination was interpreted and the report reviewed and electronically signed by: ISA ACOSTA MD on Dec 25 2023 4:38AM EST [id number] ACTIONABLE Invalid Interpretation Code [facility] CT CHEST W IVCONon 4 CT CHEST W IVCON * * *Final Report* * * DATE OF EXAM: Dec 25 2023 4:06PM [facility] 0539 - CT CHEST W IVCON / PROCEDURE REASON: Chest trauma, blunt * * * * Physician Interpretation * * * * EXAMINATION: CHEST CT WITH CONTRAST CLINICAL HISTORY: Chest trauma, history of sarcoidosis Technique: Spiral CT acquisition of the chest from the thoracic inlet to the upper abdomen following IV contrast. MQ: [id number]_6 Contrast: 50 mL Omnipaque [address] Radiation dose: Integrated Dose-length product (DLP) for this visit = 324.33 mGy*cm CT Dose Reduction Employed: Automated exposure control(AEC) and iterative recon Comparison: None RESULT: Limitations: None. The images of the upper abdomen show no acute abnormalities. There are minimal pleural effusions/pleural thickening. The heart is normal in size. There is no pericardial effusion. There are coronary artery calcifications. The aorta is atherosclerotic. There is prominence of the wall of the distal esophagus which can be seen with esophagitis. There are mildly prominent hilar and mediastinal lymph nodes. The airways are patent. There are no acute consolidating infiltrates. There are scattered nodular infiltrative changes compatible with the patient's history. There are degenerative changes in the spine. IMPRESSION: 1. Prominence of the wall esophagus distally raising the possibility of esophagitis. 2. Mildly prominent hilar and mediastinal lymph nodes. 3. Bilateral nodular infiltrative changes. Data Integration Developer: STACY Transcribe Date/Time: Dec 26 2023 8:11A Dictated by : OC OLVERA MD This examination was interpreted and the report reviewed and electronically signed by: OC OLVERA MD on Dec 26 2023 9:20AM EST [id number] Normal [facility] Comprehensive metabolic 2000 panelon 12-25-2023 Albumin [Mass/Vol] 2.8 g/dL Low 3.2-5.0 [facility] Comment on above: Order Comment: Speci men Type: BLOOD SPECIMEN Ordering Facility: [facility] Address: [address] [place] [address] Performed By: #### 5 7021-8 #### [facility] CLIA [id number] [address] [place] [address] [place] ALP [Catalytic activity/Vol] 125 U/L High 45-117 [facility] Comment on above: Order Comment: Speci men Type: BLOOD SPECIMEN Ordering Facility: [facility] Address: [address] [place] [address] Performed By: #### 5 7021-8 #### [facility] CLIA [id number] [address] [place] [address] [place] ALT [Catalytic activity/Vol] 161 U/L High 13-61 [facility] Comment on above: Order Comment: Speci men Type: BLOOD SPECIMEN Ordering Facility: [facility] Address: [address] [place] [address] Result Comment: Resu lts may be falsely depressed after the administration of Sulfasalazine and/or Sulfapyridine. Performed By: #### 5 7021-8 #### [facility] CLIA [id number] [address] [place] [address] [place] Anion gap [Moles/Vol] mmol/L Low 5-16 [facility] Comment on above: Order Comment: Speci men Type: BLOOD SPECIMEN Ordering Facility: [facility] Address: [address] [place] [address] Performed By: #### 5 7021-8 #### [facility] CLIA [id number] [address] [place] [address] [place] AST [Catalytic activity/Vol] 105 U/L High 8-34 [facility] Comment on above: Order Comment: Speci men Type: BLOOD SPECIMEN Ordering Facility: [facility] Address: [address] [place] [address] Result Comment: Resu lts may be falsely depressed after the administration of Sulfasalazine and/or Sulfapyridine. Performed By: #### 5 7021-8 #### [facility] CLIA [id number] [address] [place] [address] [place] Bilirubin [Mass/Vol] 0.5 mg/dL Normal 0.2-1.0 [facility] Comment on above: Order Comment: Speci men Type: BLOOD SPECIMEN Ordering Facility: [facility] Address: [address] [place] [address] Performed By: #### 5 7021-8 #### [facility] CLIA [id number] [address] [place] [address] [place] Calcium [Mass/Vol] 9.2 mg/dL Normal 8.5-10.5 [facility] Comment on above: Order Comment: Speci men Type: BLOOD SPECIMEN Ordering Facility: [facility] Address: [address] [place] [address] Performed By: #### 5 7021-8 #### [facility] CLIA [id number] [address] [place] [address] [place] Chloride [Moles/Vol] 106 mmol/L Normal 98-107 [facility] Comment on above: Order Comment: Speci men Type: BLOOD SPECIMEN [facility] [facility] Address: [address] [place] [address] Performed By: #### 5 7021-8 #### [facility] CLIA [id number] [address] [place] [address] [place] CO2 [Moles/Vol] 31 mmol/L Normal 21-32 [facility] Comment on above: Order Comment: Speci men Type: BLOOD SPECIMEN Ordering Facility: [facility] Address: [address] [place] [address] Performed By: #### 5 7021-8 #### [facility] CLIA [id number] [address] [place] [address] [place] Creatinine [Mass/Vol] 0.32 mg/dL Low 0.51-0.95 [facility] Comment on above: Order Comment: Fani burkett Type: BLOOD SPECIMEN Ordering Facility: [facility] Address: [address] [place] [address] Result Comment: Camila ents receiving either N-Acetylcysteine (NAC) or Metamizole prior to venipuncture, may have falsely depressed results. Performed By: #### 5 7021-8 #### [facility] CLIA [id number] [address] [place] [place] [address] [place] Creatinine and Glomerular filtration rate.predicted panel (S/P/Bld) 125 mL/min/1.73m??? Normal >=60 [facility] Comment on above: Order Comment: Fani burkett Type: BLOOD SPECIMEN Ordering Facility: [facility] Address: [address] [place] [address] Result Comment: Ivis mated Glomerular Filtration Rate (eGFR) is calculated using the 2020 CKD-EPI creatinine equation. This equation utilizes serum creatinine, sex, and age as parameters. The creatinine assay has traceable calibration to isotope dilution-mass spectrometry. Refer to KDIGO guidelines for clinical interpretation. In patients with unstable renal function, e.g. those with acute kidney injury, the eGFR may not accurately reflect actual GFR. Performed By: #### 5 7021-8 #### [facility] CLIA [id number] [address] [place] [address] [place] Glucose [Mass/Vol] 304 mg/dL High 70-100 [facility] Comment on above: Order Comment: Fani burkett Type: BLOOD SPECIMEN Ordering Facility: [facility] Address: [address] [place] [address] Result Comment: The [place] Diabetes Association (ADA) provides guidance for cutoff values for fasting glucose and random glucose. The ADA defines fasting as no caloric intake for at least 8 hours. Fasting plasma glucose results between 100 to 125 mg/dL indicate increased risk for diabetes (prediabetes). Fasting plasma glucose results greater than or equal to 126 mg/dL meet the criteria for diagnosis of diabetes. In the absence of unequivocal hyperglycemia, results should be confirmed by repeat testing. In a patient with classic symptoms of hyperglycemia or hyperglycemic crisis, random plasma glucose results greater than or equal to 200 mg/dL meet the criteria for diagnosis of diabetes. Reference: Standards of Medical Care in Diabetes 2016, [place] Diabetes Association. Diabetes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 ####[facility] [address] [place], [address] Emergency Department Summary on 11-21-2023 Emergency Department Summary Normal [facility] Basic Metabolic Profile (BMP )on 11-17-2023 BUN/CRE 14.2 RATIO Normal 10-20 [facility] Comment on above: Performed By: #### L 503.6005, L500.2500, L100.0100 ####[facility] [address] [place], [address] CA,Total 9.1 mg/dL Normal 8.5-10.1 [facility] Comment on above: Performed By: #### L 503.6005, L500.2500, L100.0100 ####[facility] [address] [place], [address] Chloride [Moles/Vol] 104 mmol/L Normal 98-107 [facility] Comment on above: Performed By: #### L 503.6005, L500.2500, L100.0100 ####[facility] [address] [place], [address] CO2 [Moles/Vol] 32.0 mmol/L Normal 21.0-32.0 [facility] Comment on above: Performed By: #### L 503.6005, L500.2500, L100.0100 ####[facility] [address] [place], [address] Creatinine [Mass/Vol] 0.63 mg/dL Normal 0.55-1.02 [facility] Comment on above: Result Comment: The validity of the calculated GFR GFRAA in patients over70 years has not been determined. Clinical correlation isessential. Performed By: #### L 503.6005, L500.2500, L100.0100 ####[facility] [address] [place], [address] ECRCL 92.93 ml/min Normal [facility] Comment on above: Performed By: #### L 503.6005, L500.2500, L100.0100 ####[facility] [address] [place], [address] EST GFR - AA 126 mL/min Normal >60 [facility] Comment on above: Result Comment: Afri can Slovenian GFR Calc Performed By: #### L 503.6005, L500.2500, L100.0100 ####[facility] [address] [place], [address] GAP 5 Normal 5-15 [facility] Comment on above: Performed By: #### L 503.6005, L500.2500, L100.0100 ####[facility] [address] [place], [address] GFR/1.73 sq M.predicted among non-blacks MDRD (S/P/Bld) [Vol rate/Area] 104 mL/min/{1.73_m2} Normal >60 [facility] Comment on above: Result Comment: Non- GFR Calc Performed By: #### L 503.6005, L500.2500, L100.0100 ####[facility] [address] [place], [address] Glucose [Mass/Vol] 383 mg/dL High 74-106 [facility] Comment on above: Result Comment: Gluc ose result greater than or equal to 200 mg/dLsuggests DIABETES MELLITUS per A.D.A. criteria. Performed By: #### L 503.6005, L500.2500, L100.0100 ####[facility] [address] [place], [address] Potassium [Moles/Vol] 3.4 mmol/L Low 3.5-5.1 [facility] Comment on above: Performed By: #### L 503.6005, L500.2500, L100.0100 ####[facility] [address] [place], [address] Sodium [Moles/Vol] 141 mmol/L Normal 136-145 [facility] Comment on above: Performed By: #### L 503.6005, L500.2500, L100.0100 ####[facility] [address] [place], [address] Urea nitrogen [Mass/Vol] 9 mg/dL Normal 7-18 [facility] Comment on above: Performed By: #### L 503.6005, L500.2500, L100.0100 ####[facility] [address] [place], [address] Bedside Glucoseon 11-17-2023 FINGERSTICK GLU 345 mg/dL High 74-106 [facility] Comment on above: Result Comment: DELLA COX OF PATIENT CARE PER NURSING PROTOCOL Performed By: #### L 501.080 ####[facility] [address] [place], [address] CBC W/Diff, Automatedon Absolute Lymph 1.46 X10 3/uL Normal 0.83-4.51 [facility] Comment on above: Performed By: #### L 503.6005, L500.2500, L100.0100 ####[facility] [address] [place], [address] Absolute Neut 4.5 X10 3/uL Normal 2.0-7.7 [facility] Comment on above: Performed By: #### L 503.6005, L500.2500, L100.0100 ####[facility] [address] [place], [address] Basophils/100 WBC (Bld) 1.6 % High 0-1 [facility] Comment on above: Performed By: #### L 503.6005, L500.2500, L100.0100 ####[facility] [address] [place], [address] Eosinophils/100 WBC (Bld) 3.2 % Normal 0-5 [facility] Comment on above: Performed By: #### L 503.6005, L500.2500, L100.0100 ####[facility] [address] [place], [address] Erythrocyte distribution width (RBC) [Ratio] 13.0 % Normal 11.6-14.6 [facility] Comment on above: Performed By: #### L 503.6005, L500.2500, L100.0100 ####[facility] [address] [place], [address] Hematocrit (Bld) [Volume fraction] 47.5 % High 37-47 [facility] Comment on above: Performed By: #### L 503.6005, L500.2500, L100.0100 ####[facility] [address] [place], [address] Hemoglobin (Bld) [Mass/Vol] 15.5 g/dL High 12.0-15.0 [facility] Comment on above: Performed By: #### L 503.6005, L500.2500, L100.0100 ####[facility] [address] [place], [address] IG% 2.700 High 0.0-0.9 [facility] Comment on above: Result Comment: IG% - Immature Granulocytes (promyelocytes, myelocytes andmetamyelocytes) > 1% indicates that a LEFT SHIFT is Present. Performed By: #### L 503.6005, L500.2500, L100.0100 ####[facility] [address] [place], [address] Lymphocytes/100 WBC (Bld) 19.7 % Normal 19-41 [facility] Comment on above: Performed By: #### L 503.6005, L500.2500, L100.0100 ####[facility] [address] [place], [address] MCH (RBC) [Entitic mass] 29.1 pg Normal 27.0-32.0 [facility] Comment on above: Performed By: #### L 503.6005, L500.2500, L100.0100 ####[facility] [address] [place], [address] MCHC (RBC) [Mass/Vol] 32.6 g/dL Normal 32-36 [facility] Comment on above: Performed By: #### L 503.6005, L500.2500, L100.0100 ####[facility] [address] [place], [address] MCV (RBC) [Entitic vol] 89.3 fL Normal 81-99 [facility] Comment on above: Performed By: #### L 503.6005, L500.2500, L100.0100 ####[facility] [address] [place], [address] Monocytes/100 WBC (Bld) 12.0 % High 0-10 [facility] Comment on above: Performed By: #### L 503.6005, L500.2500, L100.0100 ####[facility] [address] [place], [address] Neutrophils/100 WBC (Bld) 60.8 % Normal 47-70 [facility] Comment on above: Performed By: #### L 503.6005, L500.2500, L100.0100 ####[facility] [address] [place], [address] Nucleated RBC (Bld) [#/Vol] 0 10*3/uL Normal 0-5 [facility] Comment on above: Performed By: #### L 503.6005, L500.2500, L100.0100 ####[facility] [address] [place], [address] Platelet mean volume (Bld) [Entitic vol] 10.5 fL Normal 6.2-12.0 [facility] Comment on above: Performed By: #### L 503.6005, L500.2500, L100.0100 ####[facility] [address] [place], [address] Platelets (Bld) [#/Vol] 292 10*3/uL Normal 150-450 [facility] Comment on above: Performed By: #### L 503.6005, L500.2500, L100.0100 ####[facility] [address] [place], [address] RBC (Bld) [#/Vol] 5.32 10*6/uL Normal 4.2-5.4 [facility] Comment on above: Performed By: #### L 503.6005, L500.2500, L100.0100 ####[facility] [address] [place], [address] RDW SD 42.3 fl Normal 35.1-43.9 [facility] Comment on above: Performed By: #### L 503.6005, L500.2500, L100.0100 ####[facility] [address] [place], [address] WBC (Bld) [#/Vol] 7.4 10*3/uL Normal 4.4-11.0 [facility] Comment on above: Performed By: #### L 503.6005, L500.2500, L100.0100 ####[facility] [address] [place], [address] Emergency Department Summary on 11-17-2023 Emergency Department Summary Normal [facility] Lactic Acidon 11-17-2023 Lactate [Moles/Vol] 1.7 mmol/L Normal 0.4-1.9 [facility] Comment on above: Order Comment: Y Performed By: #### L 503.6005, L500.2500, L100.0100 ####[facility] [address] [place], [address] Culture, Anaerobic Any Sourc rashmi 11-16-2023 CUAN COLLECTED IN OR, ABDOMINAL WALL ABSCESS No anaerobic bacteria isolated. Normal [facility] Comment on above: Performed By: #### M 100.3000, M600.2000, M100.4001, M600.2200, M100.2000 ####[facility] [address] [place], [address] Culture, Blood (WB)on 2023 CUB Blood cultures x2, from two different sites No growth in 5 days. [facility] Comment on above: Performed By: #### M 200.1000 ####[facility] [address] [place], [address] Wound Cultureon 11-15-2023 WC Normal [facility] Comment on above: Performed By: #### M 100.3000, M600.2000, M100.4001, M600.2200, M100.2000 ####[facility] [address] [place], [address] Basic Metabolic Profile (BMP )on 11-14-2023 BUN Normal 7-18 [facility] Comment on above: Result Comment: Canc elled via OM: Order cancelled - Patient discharged Performed By: #### L 500.2500, L100.0100 ####[facility] [address] [place], [address] BUN/CRE Normal 10-20 [facility] Comment on above: Result Comment: Canc elled via OM: Order cancelled - Patient discharged Performed By: #### L 500.2500, L100.0100 ####[facility] [address] [place], [address] CA,Total Normal 8.5-10.1 [facility] Comment on above: Result Comment: Canc elled via OM: Order cancelled - Patient discharged Performed By: #### L 500.2500, L100.0100 ####[facility] [address] [place], [address] CL Normal 98-107 [facility] Comment on above: Result Comment: Canc elled via OM: Order cancelled - Patient discharged Performed By: #### L 500.2500, L100.0100 ####[facility] [address] [place], [address] CO2 Normal 21.0-32.0 [facility] Comment on above: Result Comment: Canc elled via OM: Order cancelled - Patient discharged Performed By: #### L 500.2500, L100.0100 ####[facility] [address] [place], [address] CREAT,SERUM Normal 0.55-1.02 [facility] Comment on above: Result Comment: Canc elled via OM: Order cancelled - Patient discharged Performed By: #### L 500.2500, L100.0100 ####[facility] [address] [place], [address] EST GFR Normal >60 [facility] Comment on above: Result Comment: Canc elled via OM: Order cancelled - Patient discharged Performed By: #### L 500.2500, L100.0100 ####[facility] [address] [place], [address] EST GFR - AA Normal >60 [facility] Comment on above: Result Comment: Canc elled via OM: Order cancelled - Patient discharged Performed By: #### L 500.2500, L100.0100 ####[facility] [address] [place], [address] GAP Normal 5-15 [facility] Comment on above: Result Comment: Canc elled via OM: Order cancelled - Patient discharged Performed By: #### L 500.2500, L100.0100 ####[facility] [address] [place], [address] GLU Normal 74-106 [facility] Comment on above: Result Comment: Canc elled via OM: Order cancelled - Patient discharged Performed By: #### L 500.2500, L100.0100 ####[facility] [address] [place], [address] Potassium Normal 3.5-5.1 [facility] Comment on above: Result Comment: Canc elled via OM: Order cancelled - Patient discharged Performed By: #### L 500.2500, L100.0100 ####[facility] [address] [place], [address] Basic Metabolic Profile (BMP) Normal 136-145 [facility] Comment on above: Result Comment: Canc elled via OM: Order cancelled - Patient discharged Performed By: #### L 500.2500, L100.0100 ####[facility] [address] [place], [address] CBC W/Diff, Automatedon 08-0 -2023 Absolute Neut Normal 2.0-7.7 [facility] Comment on above: Result Comment: Canc elled via OM: Order cancelled - Patient discharged Performed By: #### L 500.2500, L100.0100 ####[facility] [address] [place], [address] HCT Normal 37-47 [facility] Comment on above: Result Comment: Canc elled via OM: Order cancelled - Patient discharged Performed By: #### L 500.2500, L100.0100 ####[facility] [address] [place], [address] HGB Normal 12.0-15.0 [facility] Comment on above: Result Comment: Canc elled via OM: Order cancelled - Patient discharged Performed By: #### L 500.2500, L100.0100 ####[facility] [address] [place], [address] MCH Normal 27.0-32.0 [facility] Comment on above: Result Comment: Canc elled via OM: Order cancelled - Patient discharged Performed By: #### L 500.2500, L100.0100 ####[facility] [address] [place], [address] MCHC Normal 32-36 [facility] Comment on above: Result Comment: Canc elled via OM: Order cancelled - Patient discharged Performed By: #### L 500.2500, L100.0100 ####[facility] [address] [place], [address] MCV Normal 81-99 [facility] Comment on above: Result Comment: Canc elled via OM: Order cancelled - Patient discharged Performed By: #### L 500.2500, L100.0100 ####[facility] [address] [place], [address] NEUT% Normal 47-70 [facility] Comment on above: Result Comment: Canc elled via OM: Order cancelled - Patient discharged Performed By: #### L 500.2500, L100.0100 ####[facility] [address] [place], [address] PLT Normal 150-450 [facility] Comment on above: Result Comment: Canc elled via OM: Order cancelled - Patient discharged Performed By: #### L 500.2500, L100.0100 ####[facility] [address] [place], [address] RBC Normal 4.2-5.4 [facility] Comment on above: Result Comment: Canc elled via OM: Order cancelled - Patient discharged Performed By: #### L 500.2500, L100.0100 ####[facility] [address] [place], [address] RDW CV Normal 11.6-14.6 [facility] Comment on above: Result Comment: Canc elled via OM: Order cancelled - Patient discharged Performed By: #### L 500.2500, L100.0100 ####[facility] [address] [place], [address] RDW SD Normal 35.1-43.9 [facility] Comment on above: Result Comment: Canc elled via OM: Order cancelled - Patient discharged Performed By: #### L 500.2500, L100.0100 ####[facility] [address] [place], [address] WBC Normal 4.4-11.0 [facility] Comment on above: Result Comment: Canc elled via OM: Order cancelled - Patient discharged Performed By: #### L 500.2500, L100.0100 ####[facility] [address] [place], [address] Gram Stainon 11-14-2023 GS COLLECTED IN OR, ABDOMINAL WALL ABSCESS Gram Stain Rare Gram positive cocci 1+ White Blood Cells 4+ Red Blood Cells No Epithelial cells Normal [facility] Comment on above: Performed By: #### M 100.3000, M600.2000, M100.4001, M600.2200, M100.2000 ####[facility] [address] [place], [address] 12 Lead EKGon 11-13-2023 12 Lead EKG Normal [facility] Basic Metabolic Profile (BMP )on 11-13-2023 BUN/CRE 20.5 RATIO High 10-20 [facility] Comment on above: Performed By: #### L 501.9985, L500.2500 ####[facility] [address] [place], [address] CA,Total 8.2 mg/dL Low 8.5-10.1 [facility] Comment on above: Performed By: #### L 501.9985, L500.2500 ####[facility] [address] [place], [address] Chloride [Moles/Vol] 108 mmol/L High 98-107 [facility] Comment on above: Performed By: #### L 501.9985, L500.2500 ####[facility] [address] [place], [address] CO2 [Moles/Vol] 29.0 mmol/L Normal 21.0-32.0 [facility] Comment on above: Performed By: #### L 501.9985, L500.2500 ####[facility] [address] [place], [address] Creatinine [Mass/Vol] 0.34 mg/dL Low 0.55-1.02 [facility] Comment on above: Result Comment: The validity of the calculated GFR GFRAA in patients over70 years has not been determined. Clinical correlation isessential. Performed By: #### L 501.9985, L500.2500 ####[facility] [address] [place], [address] ECRCL 172.19 ml/min Normal [facility] Comment on above: Performed By: #### L 501.9985, L500.2500 ####[facility] [address] [place], [address] EST GFR - AA 258 mL/min Normal >60 [facility] Comment on above: Result Comment: Afri can Slovenian GFR Calc Performed By: #### L 501.9985, L500.2500 ####[facility] [address] [place], [address] GAP 3 Low 5-15 [facility] Comment on above: Performed By: #### L 501.9985, L500.2500 ####[facility] [address] [place], [address] GFR/1.73 sq M.predicted among non-blacks MDRD (S/P/Bld) [Vol rate/Area] 213 mL/min/{1.73_m2} Normal >60 [facility] Comment on above: Result Comment: Non- GFR Calc Performed By: #### L 501.9985, L500.2500 ####[facility] [address] [place], [address] Glucose [Mass/Vol] 277 mg/dL High 74-106 [facility] Comment on above: Result Comment: Gluc ose result greater than or equal to 200 mg/dLsuggests DIABETES MELLITUS per A.D.A. criteria. Performed By: #### L 501.9985, L500.2500 ####[facility] [address] [place], [address] Potassium [Moles/Vol] 3.3 mmol/L Low 3.5-5.1 [facility] Comment on above: Performed By: #### L 501.9985, L500.2500 ####[facility] [address] [place], [address] Sodium [Moles/Vol] 140 mmol/L Normal 136-145 [facility] Comment on above: Performed By: #### L 501.9985, L500.2500 ####[facility] [address] [place], [address] Urea nitrogen [Mass/Vol] 7 mg/dL Normal 7-18 [facility] Comment on above: Performed By: #### L 501.9985, L500.2500 ####[facility] [address] [place], [address] Bedside Glucoseon 11-13-2023 FINGERSTICK GLU 195 mg/dL High 74-106 [facility] Comment on above: Result Comment: DELLA GEMENT OF PATIENT CARE PER NURSING PROTOCOL Performed By: #### L 501.080 ####[facility] [address] [place], [address] FINGERSTICK GLU 258 mg/dL High 74-106 [facility] Comment on above: Result Comment: DELLA GEMENT OF PATIENT CARE PER NURSING PROTOCOL Performed By: #### L 501.080 ####[facility] [address] [place], [address] Consultation - Cardiologyon 11-13-2023 Consultation - Cardiology Normal [facility] Hemoglobin A1con 11-13-2023 HbA1c (Bld) [Mass fraction] 11.5 % High 3.8-5.6 [facility] Comment on above: Result Comment: Norm al < 5.7 % Prediabetic 5.7 - 6.4 % Diabetic >or= 6.5 % Please note range changes. Performed By: #### L 501.9985, L500.2500 ####[facility] [address] [place], [address] L501.4020on 11-13-2023 TROPONIN-I HS 4 pg/mL Normal 3.0-54.0 [facility] Comment on above: Order Comment: Comme nts: 1 time post op'TROP' Serial specimen #1, #2 or #3: 1 Result Comment: Plea se Note: New Test Units and Gender Specific Reference Ranges. For more information see Policy Stat Procedure [place] High Sensitivity Troponin (TNIH) and attachments. Performed By: #### L 501.4020 ####[facility] [address] [place], [address] MR/POSTOP.ANEon 11-13-2023 MR/POSTOP.ANE Normal [facility] MR/ONNPDHJV9ma 11-13-2023 MR/POSTOPAN2 Normal [facility] Operative Reporton Operative Report Normal [facility] Urine Cultureon 11-13-2023 URC Normal [facility] Comment on above: Performed By: #### M 100.2200 ####[facility] [address] [place], [address] Basic Metabolic Profile (BMP )on 11-12-2023 BUN/CRE 15.9 RATIO Normal 10-20 [facility] Comment on above: Performed By: #### L 500.2500 ####[facility] [address] [place], [address] CA,Total 8.1 mg/dL Low 8.5-10.1 [facility] Comment on above: Performed By: #### L 500.2500 ####[facility] [address] [place], [address] Chloride [Moles/Vol] 109 mmol/L High 98-107 [facility] Comment on above: Performed By: #### L 500.2500 ####[facility] [address] [place], [address] CO2 [Moles/Vol] 30.0 mmol/L Normal 21.0-32.0 [facility] Comment on above: Performed By: #### L 500.2500 ####[facility] [address] [place], [address] Creatinine [Mass/Vol] 0.31 mg/dL Low 0.55-1.02 [facility] Comment on above: Result Comment: The validity of the calculated GFR GFRAA in patients over70 years has not been determined. Clinical correlation isessential. Performed By: #### L 500.2500 ####[facility] [address] [place], [address] ECRCL 188.85 ml/min Normal [facility] Comment on above: Performed By: #### L 500.2500 ####[facility] [address] [place], [address] EST GFR - AA 284 mL/min Normal >60 [facility] Comment on above: Result Comment: Afri can Slovenian GFR Calc Performed By: #### L 500.2500 ####[facility] [address] [place], [address] GAP 4 Low 5-15 [facility] Comment on above: Performed By: #### L 500.2500 ####[facility] [address] [place], [address] GFR/1.73 sq M.predicted among non-blacks MDRD (S/P/Bld) [Vol rate/Area] 235 mL/min/{1.73_m2} Normal >60 [facility] Comment on above: Result Comment: Non- GFR Calc Performed By: #### L 500.2500 ####[facility] [address] [place], [address] Glucose [Mass/Vol] 138 mg/dL High 74-106 [facility] Comment on above: Result Comment: Fast ing Glucose result greater than or equal to 126 mg/dLsuggests DIABETES MELLITUS per A.D.A. criteria. Performed By: #### L 500.2500 ####[facility] [address] [place], [address] Potassium [Moles/Vol] 3.2 mmol/L Low 3.5-5.1 [facility] Comment on above: Performed By: #### L 500.2500 ####[facility] [address] [place], [address] Sodium [Moles/Vol] 143 mmol/L Normal 136-145 [facility] Comment on above: Performed By: #### L 500.2500 ####[facility] [address] [place], [address] Urea nitrogen [Mass/Vol] 5 mg/dL Low 7-18 [facility] Comment on above: Performed By: #### L 500.2500 ####[facility] [address] [place], [address] Bedside Glucoseon 11-12-2023 FINGERSTICK GLU 194 mg/dL High 74-106 [facility] Comment on above: Result Comment: DELLA GEMENT OF PATIENT CARE PER NURSING PROTOCOL Performed By: #### L 501.080 ####[facility] [address] [place], [address] FINGERSTICK GLU 199 mg/dL High 74-106 [facility] Comment on above: Result Comment: DELLA GEMENT OF PATIENT CARE PER NURSING PROTOCOL Performed By: #### L 501.080 ####[facility] [address] [place], [address] FINGERSTICK GLU 150 mg/dL High 74-106 [facility] Comment on above: Result Comment: DELLA GEMENT OF PATIENT CARE PER NURSING PROTOCOL Performed By: #### L 501.080 ####[facility] [address] [place], [address] FINGERSTICK GLU 151 mg/dL High 74-106 [facility] Comment on above: Result Comment: DELLA GEMENT OF PATIENT CARE PER NURSING PROTOCOL Performed By: #### L 501.080 ####[facility] [address] [place], [address] FINGERSTICK GLU 236 mg/dL High 74-106 [facility] Comment on above: Result Comment: DELLA GEMENT OF PATIENT CARE PER NURSING PROTOCOL Performed By: #### L 501.080 ####[facility] [address] [place], [address] CBC W/Diff, Automatedon 07-3 0-2024 Absolute Lymph 1.45 X10 3/uL Normal 0.83-4.51 [facility] Comment on above: Performed By: #### L 100.0100 ####[facility] [address] [place], [address] Absolute Neut 6.2 X10 3/uL Normal 2.0-7.7 [facility] Comment on above: Performed By: #### L 100.0100 ####[facility] [address] [place], [address] Basophils/100 WBC (Bld) 0.4 % Normal 0-1 [facility] Comment on above: Performed By: #### L 100.0100 ####[facility] [address] [place], [address] Eosinophils/100 WBC (Bld) 1.3 % Normal 0-5 [facility] Comment on above: Performed By: #### L 100.0100 ####[facility] [address] [place], [address] Erythrocyte distribution width (RBC) [Ratio] 13.1 % Normal 11.6-14.6 [facility] Comment on above: Performed By: #### L 100.0100 ####[facility] [address] [place], [address] Hematocrit (Bld) [Volume fraction] 41.0 % Normal 37-47 [facility] Comment on above: Performed By: #### L 100.0100 ####[facility] [address] [place], [address] Hemoglobin (Bld) [Mass/Vol] 13.4 g/dL Normal 12.0-15.0 [facility] Comment on above: Performed By: #### L 100.0100 ####[facility] [address] [place], [address] IG% 0.700 Normal 0.0-0.9 [facility] Comment on above: Result Comment: IG% - Immature Granulocytes (promyelocytes, myelocytes andmetamyelocytes) > 1% indicates that a LEFT SHIFT is Present. Performed By: #### L 100.0100 ####[facility] [address] [place], [address] Lymphocytes/100 WBC (Bld) 16.3 % Low 19-41 [facility] Comment on above: Performed By: #### L 100.0100 ####[facility] [address] [place], [address] MCH (RBC) [Entitic mass] 29.1 pg Normal 27.0-32.0 [facility] Comment on above: Performed By: #### L 100.0100 ####[facility] [address] [place], [address] MCHC (RBC) [Mass/Vol] 32.7 g/dL Normal 32-36 [facility] Comment on above: Performed By: #### L 100.0100 ####[facility] [address] [place], [address] MCV (RBC) [Entitic vol] 88.9 fL Normal 81-99 [facility] Comment on above: Performed By: #### L 100.0100 ####[facility] [address] [place], [address] Monocytes/100 WBC (Bld) 12.1 % High 0-10 [facility] Comment on above: Performed By: #### L 100.0100 ####[facility] [address] [place], [address] Neutrophils/100 WBC (Bld) 69.2 % Normal 47-70 [facility] Comment on above: Performed By: #### L 100.0100 ####[facility] [address] [place], [address] Nucleated RBC (Bld) [#/Vol] 0 10*3/uL Normal 0-5 [facility] Comment on above: Performed By: #### L 100.0100 ####[facility] [address] [place], [address] Platelet mean volume (Bld) [Entitic vol] 10.8 fL Normal 6.2-12.0 [facility] Comment on above: Performed By: #### L 100.0100 ####[facility] [address] [place], [address] Platelets (Bld) [#/Vol] 188 10*3/uL Normal 150-450 [facility] Comment on above: Performed By: #### L 100.0100 ####[facility] [address] [place], [address] RBC (Bld) [#/Vol] 4.61 10*6/uL Normal 4.2-5.4 [facility] Comment on above: Performed By: #### L 100.0100 ####[facility] [address] [place], [address] RDW SD 42.5 fl Normal 35.1-43.9 [facility] Comment on above: Performed By: #### L 100.0100 ####[facility] [address] [place], [address] WBC (Bld) [#/Vol] 8.9 10*3/uL Normal 4.4-11.0 [facility] Comment on above: Performed By: #### L 100.0100 ####[facility] [address] [place], [address] Consultation - Surgicalon Consultation - Surgical Normal [facility] Other Unlisted US Procedureo n 11-12-2023 Other Unlisted US Procedure Normal [facility] 12 Lead EKGon 11-11-2023 12 Lead EKG Normal [facility] Abdomen/Pelvis W IV Cont ONL Yon 11-11-2023 Abdomen/Pelvis W IV Cont ONLY Normal [facility] Bedside Glucoseon 11-11-2023 FINGERSTICK GLU 100 mg/dL Normal 74-106 [facility] Comment on above: Result Comment: DELLA GEMENT OF PATIENT CARE PER NURSING PROTOCOL Performed By: #### L 501.080 ####[facility] [address] [place], [address] FINGERSTICK GLU 266 mg/dL High 74-106 [facility] Comment on above: Result Comment: DELLA GEMENT OF PATIENT CARE PER NURSING PROTOCOL Performed By: #### L 501.080 ####[facility] [address] [place], [address] CBC W/Diff, Automatedon 07-2 Absolute Lymph 1.30 X10 3/uL Normal 0.83-4.51 [facility] Comment on above: Performed By: #### L 300.4310, L100.0100, L500.4050, L503.6005, L300.3900 ####[facility] [address] [place], [address] Absolute Neut 4.7 X10 3/uL Normal 2.0-7.7 [facility] Comment on above: Performed By: #### L 300.4310, L100.0100, L500.4050, L503.6005, L300.3900 ####[facility] [address] [place], [address] Basophils/100 WBC (Bld) 0.6 % Normal 0-1 [facility] Comment on above: Performed By: #### L 300.4310, L100.0100, L500.4050, L503.6005, L300.3900 ####[facility] [address] [place], [address] Eosinophils/100 WBC (Bld) 0.8 % Normal 0-5 [facility] Comment on above: Performed By: #### L 300.4310, L100.0100, L500.4050, L503.6005, L300.3900 ####[facility] [address] [place], [address] Erythrocyte distribution width (RBC) [Ratio] 12.9 % Normal 11.6-14.6 [facility] Comment on above: Performed By: #### L 300.4310, L100.0100, L500.4050, L503.6005, L300.3900 ####[facility] [address] [place], [address] Hematocrit (Bld) [Volume fraction] 46.1 % Normal 37-47 [facility] Comment on above: Performed By: #### L 300.4310, L100.0100, L500.4050, L503.6005, L300.3900 ####[facility] [address] [place], [address] Hemoglobin (Bld) [Mass/Vol] 15.6 g/dL High 12.0-15.0 [facility] Comment on above: Performed By: #### L 300.4310, L100.0100, L500.4050, L503.6005, L300.3900 ####[facility] [address] [place], [address] IG% 1.600 High 0.0-0.9 [facility] Comment on above: Result Comment: IG% - Immature Granulocytes (promyelocytes, myelocytes andmetamyelocytes) > 1% indicates that a LEFT SHIFT is Present. Performed By: #### L 300.4310, L100.0100, L500.4050, L503.6005, L300.3900 ####[facility] [address] [place], [address] Lymphocytes/100 WBC (Bld) 18.4 % Low 19-41 [facility] Comment on above: Performed By: #### L 300.4310, L100.0100, L500.4050, L503.6005, L300.3900 ####[facility] [address] [place], [address] MCH (RBC) [Entitic mass] 29.8 pg Normal 27.0-32.0 [facility] Comment on above: Performed By: #### L 300.4310, L100.0100, L500.4050, L503.6005, L300.3900 ####[facility] [address] [place], [address] MCHC (RBC) [Mass/Vol] 33.8 g/dL Normal 32-36 [facility] Comment on above: Performed By: #### L 300.4310, L100.0100, L500.4050, L503.6005, L300.3900 ####[facility] [address] [place], [address] MCV (RBC) [Entitic vol] 88.1 fL Normal 81-99 [facility] Comment on above: Performed By: #### L 300.4310, L100.0100, L500.4050, L503.6005, L300.3900 ####[facility] [address] [place], [address] Monocytes/100 WBC (Bld) 12.0 % High 0-10 [facility] Comment on above: Performed By: #### L 300.4310, L100.0100, L500.4050, L503.6005, L300.3900 ####[facility] [address] [place], [address] Neutrophils/100 WBC (Bld) 66.6 % Normal 47-70 [facility] Comment on above: Performed By: #### L 300.4310, L100.0100, L500.4050, L503.6005, L300.3900 ####[facility] [address] [place], [address] Nucleated RBC (Bld) [#/Vol] 0 10*3/uL Normal 0-5 [facility] Comment on above: Performed By: #### L 300.4310, L100.0100, L500.4050, L503.6005, L300.3900 ####[facility] [address] [place], [address] Platelet mean volume (Bld) [Entitic vol] 10.3 fL Normal 6.2-12.0 [facility] Comment on above: Performed By: #### L 300.4310, L100.0100, L500.4050, L503.6005, L300.3900 ####[facility] [address] [place], [address] Platelets (Bld) [#/Vol] 219 10*3/uL Normal 150-450 [facility] Comment on above: Performed By: #### L 300.4310, L100.0100, L500.4050, L503.6005, L300.3900 ####[facility] [address] [place], [address] RBC (Bld) [#/Vol] 5.23 10*6/uL Normal 4.2-5.4 [facility] Comment on above: Performed By: #### L 300.4310, L100.0100, L500.4050, L503.6005, L300.3900 ####[facility] [address] [place], [address] RDW SD 41.9 fl Normal 35.1-43.9 [facility] Comment on above: Performed By: #### L 300.4310, L100.0100, L500.4050, L503.6005, L300.3900 ####[facility] [address] [place], [address] WBC (Bld) [#/Vol] 7.1 10*3/uL Normal 4.4-11.0 [facility] Comment on above: Performed By: #### L 300.4310, L100.0100, L500.4050, L503.6005, L300.3900 ####[facility] [address] [place], [address] Chest 1 View (Portable)on Chest 1 View (Portable) Normal [facility] Comprehensive Metabolic Prof ilon 11-11-2023 Albumin [Mass/Vol] 3.1 g/dL Low 3.2-5.0 [facility] Comment on above: Performed By: #### L 300.4310, L100.0100, L500.4050, L503.6005, L300.3900 ####[facility] [address] [place], [address] Albumin/Globulin [Mass ratio] 0.9 {ratio} Normal 0.9-2.4 [facility] Comment on above: Performed By: #### L 300.4310, L100.0100, L500.4050, L503.6005, L300.3900 ####[facility] [address] [place], [address] ALK P 130 U/L High 45-117 [facility] Comment on above: Performed By: #### L 300.4310, L100.0100, L500.4050, L503.6005, L300.3900 ####[facility] [address] [place], [address] ALT [Catalytic activity/Vol] 50 U/L Normal 13-56 [facility] Comment on above: Performed By: #### L 300.4310, L100.0100, L500.4050, L503.6005, L300.3900 ####[facility] [address] [place], [address] AST [Catalytic activity/Vol] 35 U/L Normal 15-37 [facility] Comment on above: Performed By: #### L 300.4310, L100.0100, L500.4050, L503.6005, L300.3900 ####[facility] [address] [place], [address] Bilirubin [Mass/Vol] 1.10 mg/dL High 0.20-1.00 [facility] Comment on above: Result Comment: For patients on eltrombopag therapy, use of Dimension [place] TBIL is not recommended. Performed By: #### L 300.4310, L100.0100, L500.4050, L503.6005, L300.3900 ####[facility] [address] [place], [address] BUN/CRE 5.4 RATIO Low 10-20 [facility] Comment on above: Performed By: #### L 300.4310, L100.0100, L500.4050, L503.6005, L300.3900 ####[facility] [address] [place], [address] CA,Total 9.0 mg/dL Normal 8.5-10.1 [facility] Comment on above: Performed By: #### L 300.4310, L100.0100, L500.4050, L503.6005, L300.3900 ####[facility] [address] [place], [address] Chloride [Moles/Vol] 99 mmol/L Normal 98-107 [facility] Comment on above: Performed By: #### L 300.4310, L100.0100, L500.4050, L503.6005, L300.3900 ####[facility] [address] [place], [address] CO2 [Moles/Vol] 28.0 mmol/L Normal 21.0-32.0 [facility] Comment on above: Performed By: #### L 300.4310, L100.0100, L500.4050, L503.6005, L300.3900 ####[facility] [address] [place], [address] Creatinine [Mass/Vol] 0.74 mg/dL Normal 0.55-1.02 [facility] Comment on above: Result Comment: The validity of the calculated GFR GFRAA in patients over70 years has not been determined. Clinical correlation isessential. Performed By: #### L 300.4310, L100.0100, L500.4050, L503.6005, L300.3900 ####[facility] [address] [place], [address] ECRCL 79.11 ml/min Normal [facility] Comment on above: Performed By: #### L 300.4310, L100.0100, L500.4050, L503.6005, L300.3900 ####[facility] [address] [place], [address] EST GFR - AA 106 mL/min Normal >60 [facility] Comment on above: Result Comment: Afri can Slovenian GFR Calc Performed By: #### L 300.4310, L100.0100, L500.4050, L503.6005, L300.3900 ####[facility] [address] [place], [address] GAP 6 Normal 5-15 [facility] Comment on above: Performed By: #### L 300.4310, L100.0100, L500.4050, L503.6005, L300.3900 ####[facility] [address] [place], [address] GFR/1.73 sq M.predicted among non-blacks MDRD (S/P/Bld) [Vol rate/Area] 87 mL/min/{1.73_m2} Normal >60 [facility] Comment on above: Result Comment: Non- GFR Calc Performed By: #### L 300.4310, L100.0100, L500.4050, L503.6005, L300.3900 ####[facility] [address] [place], [address] Globulin (S) [Mass/Vol] 3.5 g/dL Normal 2.2-4.2 [facility] Comment on above: Performed By: #### L 300.4310, L100.0100, L500.4050, L503.6005, L300.3900 ####[facility] [address] [place], [address] Glucose [Mass/Vol] 652 mg/dL Invalid Interpretation Code 74-106 [facility] Comment on above: Result Comment: Crit ical Result(s) Called at: 08:11:45 11/11/2023 by: BOZENA to Gabrielle Irwin. Results read back by same.Glucose result greater than or equal to 200 mg/dLsuggests DIABETES MELLITUS per A.D.A. criteria. Performed By: #### L 300.4310, L100.0100, L500.4050, L503.6005, L300.3900 ####[facility] [address] [place], [address] Potassium [Moles/Vol] 3.2 mmol/L Low 3.5-5.1 [facility] Comment on above: Performed By: #### L 300.4310, L100.0100, L500.4050, L503.6005, L300.3900 ####[facility] [address] [place], [address] Sodium [Moles/Vol] 133 mmol/L Low 136-145 [facility] Comment on above: Performed By: #### L 300.4310, L100.0100, L500.4050, L503.6005, L300.3900 ####[facility] [address] [place], [address] T PROT 6.6 g/dL Normal 6.4-8.2 [facility] Comment on above: Performed By: #### L 300.4310, L100.0100, L500.4050, L503.6005, L300.3900 ####[facility] [address] [place], [address] Urea nitrogen [Mass/Vol] 4 mg/dL Low 7-18 [facility] Comment on above: Performed By: #### L 300.4310, L100.0100, L500.4050, L503.6005, L300.3900 ####[facility] [address] [place], [address] Emergency Department Summary on 11-11-2023 Emergency Department Summary Normal [facility] H AND P Exam - Hospitaliston 11-11-2023 H&P Exam - Hospitalist Normal [facility] L501.4020on 11-11-2023 TROPONIN-I HS 5 pg/mL Normal 3.0-54.0 [facility] Comment on above: Order Comment: 'TROP ' Serial specimen #1, #2 or #3: 1 Result Comment: Jackie hill Note: New Test Units and Gender Specific Reference Ranges. For more information see Policy Stat Procedure [place] High Sensitivity Troponin (TNIH) and attachments. Performed By: #### L 501.4020 ####[facility] [address] [place], [address] Lactic Acidon 11-11-2023 Lactate [Moles/Vol] 1.5 mmol/L Normal 0.4-1.9 [facility] Comment on above: Performed By: #### L 503.6005 ####[facility] [address] [place], [address] Lactate [Moles/Vol] 2.5 mmol/L Invalid Interpretation Code 0.4-1.9 [facility] Comment on above: Order Comment: Y Result Comment: Crit ical Result(s) Called at: 08:26:26 11/11/2023 by: BOZENA Milnerfer. Results read back by same. Performed By: #### L 300.4310, L100.0100, L500.4050, L503.6005, L300.3900 ####[facility] [address] [place], [address] Partial Thromboplast Timeon 11-11-2023 aPTT Coag (Bld) [Time] 30.3 s Normal 24.1-36.2 [facility] Comment on above: Performed By: #### L 300.4310, L100.0100, L500.4050, L503.6005, L300.3900 ####[facility] [address] [place], [address] Prothrombin Time w/INRon INR Coag (PPP) [Relative time] 1.0 {INR} Normal [facility] Comment on above: Performed By: #### L 300.4310, L100.0100, L500.4050, L503.6005, L300.3900 ####[facility] [address] [place], [address] PT Coag (PPP) [Time] 12.9 s Normal 11.7-14.9 [facility] Comment on above: Performed By: #### L 300.4310, L100.0100, L500.4050, L503.6005, L300.3900 ####[facility] [address] [place], [address] Urinalysis, Completeon 11-10 BACTERIA 1+ /hpf Normal None Seen [facility] Comment on above: Order Comment: BOZENA CTOR TO SPECIFY Performed By: #### L 400.0001 ####[facility] [address] [place], [address] EPI,SQUAMOUS 0-5 SEEN Normal 5-10 [facility] Comment on above: Order Comment: BOZENA CTOR TO SPECIFY Performed By: #### L 400.0001 ####[facility] [address] [place], [address] WBC >100 SEEN Normal 0-5 [facility] Comment on above: Order Comment: BOZENA CTOR TO SPECIFY Performed By: #### L 400.0001 ####[facility] [address] [place], [address] Mucus Ql (Urine sed) 0 SEEN Normal [facility] Comment on above: Order Comment: BOZENA CTOR TO SPECIFY Performed By: #### L 400.0001 ####[facility] [address] [place], [address] RBC 0 SEEN Normal 0-5 [facility] Comment on above: Order Comment: COLLE CTOR TO SPECIFY Performed By: #### L 400.0001 ####[facility] [address] [place] [address] Urine Drug Screen (VISTA)on 11-11-2023 AMPHETAMINES Negative Normal <1000 ng/mL [facility] Comment on above: Performed By: #### L 505.5000 ####[facility] [address] [place] [address] BARBITIURATES Negative Normal < 200 ng/mL [facility] Comment on above: Performed By: #### L 505.5000 ####[facility] [address] [place] [address] BENZODIAZIPINE Negative Normal < 200 ng/mL [facility] Comment on above: Performed By: #### L 505.5000 ####[facility] [address] [place] [address] COCAINE Positive Abnormal < 300 ng/mL [facility] Comment on above: Performed By: #### L 505.5000 ####[facility] [address] [place] [address] ECSTACY Negative Normal < 500 ng/mL [facility] Comment on above: Performed By: #### L 505.5000 ####[facility] [address] [place] [address] METHADONE Negative Normal < 300 ng/mL [facility] Comment on above: Performed By: #### L 505.5000 ####[facility] [address] [place] [address] OPIATES Positive Abnormal < 300 ng/mL [facility] Comment on above: Performed By: #### L 505.5000 ####[facility] [address] [place] [address] PCP Negative Normal < 25 ng/mL [facility] Comment on above: Performed By: #### L 505.5000 ####[facility] [address] [place], [address] THC Positive Abnormal < 50 ng/mL [facility] Comment on above: Performed By: #### L 505.5000 ####[facility] [address] [place], [address] VISTA UDS PH 5 Normal [facility] Comment on above: Performed By: #### L 505.5000 ####[facility] [address] [place], [address] Basic Metabolic Profile (BMP )on 11-04-2023 BUN/CRE 16.4 RATIO Normal 10-20 [facility] Comment on above: Performed By: #### L 100.0100, L500.2500 ####[facility] [address] [place], [address] CA,Total 9.0 mg/dL Normal 8.5-10.1 [facility] Comment on above: Performed By: #### L 100.0100, L500.2500 ####[facility] [address] [place], [address] Chloride [Moles/Vol] 101 mmol/L Normal 98-107 [facility] Comment on above: Performed By: #### L 100.0100, L500.2500 ####[facility] [address] [place], [address] CO2 [Moles/Vol] 28.0 mmol/L Normal 21.0-32.0 [facility] Comment on above: Performed By: #### L 100.0100, L500.2500 ####[facility] [address] [place], [address] Creatinine [Mass/Vol] 0.43 mg/dL Low 0.55-1.02 [facility] Comment on above: Result Comment: The validity of the calculated GFR GFRAA in patients over70 years has not been determined. Clinical correlation isessential. Performed By: #### L 100.0100, L500.2500 ####[facility] [address] [place], [address] ECRCL 154.52 ml/min Normal [facility] Comment on above: Performed By: #### L 100.0100, L500.2500 ####[facility] [address] [place], [address] EST GFR - AA 199 mL/min Normal >60 [facility] Comment on above: Result Comment: Afri can Slovenian GFR Calc Performed By: #### L 100.0100, L500.2500 ####[facility] [address] [place], [address] GAP 8 Normal 5-15 [facility] Comment on above: Performed By: #### L 100.0100, L500.2500 ####[facility] [address] [place], [address] GFR/1.73 sq M.predicted among non-blacks MDRD (S/P/Bld) [Vol rate/Area] 165 mL/min/{1.73_m2} Normal >60 [facility] Comment on above: Result Comment: Non- GFR Calc Performed By: #### L 100.0100, L500.2500 ####[facility] [address] [place], [address] Glucose [Mass/Vol] 313 mg/dL High 74-106 [facility] Comment on above: Result Comment: Gluc ose result greater than or equal to 200 mg/dLsuggests DIABETES MELLITUS per A.D.A. criteria. Performed By: #### L 100.0100, L500.2500 ####[facility] [address] [place], [address] Potassium [Moles/Vol] 3.2 mmol/L Low 3.5-5.1 [facility] Comment on above: Performed By: #### L 100.0100, L500.2500 ####[facility] [address] [place], [address] Sodium [Moles/Vol] 137 mmol/L Normal 136-145 [facility] Comment on above: Performed By: #### L 100.0100, L500.2500 ####[facility] [address] [place], [address] Urea nitrogen [Mass/Vol] 7 mg/dL Normal 7-18 [facility] Comment on above: Performed By: #### L 100.0100, L500.2500 ####[facility] [address] [place], [address] CBC W/Diff, Automatedon 07-2 Absolute Lymph 1.28 X10 3/uL Normal 0.83-4.51 [facility] Comment on above: Performed By: #### L 100.0100, L500.2500 ####[facility] [address] [place], [address] Absolute Neut 6.7 X10 3/uL Normal 2.0-7.7 [facility] Comment on above: Performed By: #### L 100.0100, L500.2500 ####[facility] [address] [place], [address] Basophils/100 WBC (Bld) 0.4 % Normal 0-1 [facility] Comment on above: Performed By: #### L 100.0100, L500.2500 ####[facility] [address] [place], [address] Eosinophils/100 WBC (Bld) 0.5 % Normal 0-5 [facility] Comment on above: Performed By: #### L 100.0100, L500.2500 ####[facility] [address] [place], [address] Erythrocyte distribution width (RBC) [Ratio] 13.1 % Normal 11.6-14.6 [facility] Comment on above: Performed By: #### L 100.0100, L500.2500 ####[facility] [address] [place], [address] Hematocrit (Bld) [Volume fraction] 47.5 % High 37-47 [facility] Comment on above: Performed By: #### L 100.0100, L500.2500 ####[facility] [address] [place], [address] Hemoglobin (Bld) [Mass/Vol] 15.9 g/dL High 12.0-15.0 [facility] Comment on above: Performed By: #### L 100.0100, L500.2500 ####[facility] [address] [place], [address] IG% 0.800 Normal 0.0-0.9 [facility] Comment on above: Result Comment: IG% - Immature Granulocytes (promyelocytes, myelocytes andmetamyelocytes) > 1% indicates that a LEFT SHIFT is Present. Performed By: #### L 100.0100, L500.2500 ####[facility] [address] [place], [address] Lymphocytes/100 WBC (Bld) 14.0 % Low 19-41 [facility] Comment on above: Performed By: #### L 100.0100, L500.2500 ####[facility] [address] [place], [address] MCH (RBC) [Entitic mass] 29.7 pg Normal 27.0-32.0 [facility] Comment on above: Performed By: #### L 100.0100, L500.2500 ####[facility] [address] [place], [address] MCHC (RBC) [Mass/Vol] 33.5 g/dL Normal 32-36 [facility] Comment on above: Performed By: #### L 100.0100, L500.2500 ####[facility] [address] [place], [address] MCV (RBC) [Entitic vol] 88.8 fL Normal 81-99 [facility] Comment on above: Performed By: #### L 100.0100, L500.2500 ####[facility] [address] [place], [address] Monocytes/100 WBC (Bld) 10.9 % High 0-10 [facility] Comment on above: Performed By: #### L 100.0100, L500.2500 ####[facility] [address] [place], [address] Neutrophils/100 WBC (Bld) 73.4 % High 47-70 [facility] Comment on above: Performed By: #### L 100.0100, L500.2500 ####[facility] [address] [place], [address] Nucleated RBC (Bld) [#/Vol] 0 10*3/uL Normal 0-5 [facility] Comment on above: Performed By: #### L 100.0100, L500.2500 ####[facility] [address] [place], [address] Platelet mean volume (Bld) [Entitic vol] 10.9 fL Normal 6.2-12.0 [facility] Comment on above: Performed By: #### L 100.0100, L500.2500 ####[facility] [address] [place], [address] Platelets (Bld) [#/Vol] 207 10*3/uL Normal 150-450 [facility] Comment on above: Performed By: #### L 100.0100, L500.2500 ####[facility] [address] [place], [address] RBC (Bld) [#/Vol] 5.35 10*6/uL Normal 4.2-5.4 [facility] Comment on above: Performed By: #### L 100.0100, L500.2500 ####[facility] [address] [place], [address] RDW SD 42.2 fl Normal 35.1-43.9 [facility] Comment on above: Performed By: #### L 100.0100, L500.2500 ####[facility] [address] [place], [address] WBC (Bld) [#/Vol] 9.1 10*3/uL Normal 4.4-11.0 [facility] Comment on above: Performed By: #### L 100.0100, L500.2500 ####[facility] [address] [place], [address] Emergency Department Summary on 11-04-2023 Emergency Department Summary Normal [facility] Vital Signs Date Time Vital Sign Value Performing Clinician Facility 09-01-2024 18:55-0400 Diastolic blood pressure 63 mm[Hg] Dr. Fely Bose MD Work Phone: [facility] 09-01-2024 18:55-0400 Heart rate 90 /min Dr. Fely Bose MD Work Phone: [facility] 09-01-2024 18:55-0400 SaO2% (BldA) [Mass fraction] 94 % Dr. Fely Bose MD Work Phone: [facility] 09-01-2024 18:55-0400 Systolic blood pressure 121 mm[Hg] Dr. Fely Bose MD Work Phone: [facility] 09-01-2024 17:48-0400 Body temperature 97 [degF] Dr. Fely Bose MD Work Phone: [facility] 09-01-2024 17:48-0400 Respiratory rate 16 /min Dr. Fely Bose MD Work Phone: [facility] 09-01-2024 07:51-0400 Body height 165.[address] Fely Bose MD Work Phone: [facility] 09-01-2024 07:51-0400 Body mass index (BMI) [Ratio] 24.5 kg/m2 Dr. Fely Bose MD Work Phone: [facility] 09-01-2024 07:51-0400 Body weight 66.[address] Fely Bose MD Work Phone: [facility] 08-31-2024 21:19-0400 Body temperature 98 [degF] Dr. Fely Bose MD Work Phone: [facility] 08-31-2024 21:19-0400 Diastolic blood pressure 60 mm[Hg] Dr. Fely Bose MD Work Phone: [facility] 08-31-2024 21:19-0400 Heart rate 79 /min Dr. Fely Bose MD Work Phone: [facility] 08-31-2024 21:19-0400 Respiratory rate 18 /min Dr. Fely Bose MD Work Phone: [facility] 08-31-2024 21:19-0400 SaO2% (BldA) [Mass fraction] 96 % Dr. Fely Bose MD Work Phone: [facility] 08-31-2024 21:19-0400 Systolic blood pressure 128 mm[Hg] Dr. Fely Bose MD Work Phone: [facility] 08-31-2024 16:22-0400 Body height 165.[address] Fely Bose MD Work Phone: [facility] 08-31-2024 16:22-0400 Body mass index (BMI) [Ratio] 24.4 kg/m2 Dr. Fely Bose MD Work Phone: [facility] 08-31-2024 16:22-0400 Body weight 66.[address] Fely Bose MD Work Phone: [facility] 08-29-2024 16:05-0400 Body temperature 98.3 [degF] Dr. Fely Bose MD Work Phone: [facility] 08-29-2024 16:05-0400 Diastolic blood pressure 78 mm[Hg] Dr. Fely Bose MD Work Phone: [facility] 08-29-2024 16:05-0400 Heart rate 78 /min Dr. Fely Bose MD Work Phone: [facility] 08-29-2024 16:05-0400 Respiratory rate 18 /min Dr. Fely Bose MD Work Phone: [facility] 08-29-2024 16:05-0400 SaO2% (BldA) [Mass fraction] 98 % Dr. Fely Bose MD Work Phone: [facility] 08-29-2024 16:05-0400 Systolic blood pressure 120 mm[Hg] Dr. Fely Bose MD Work Phone: [facility] 08-29-2024 12:06-0400 Body height 165.[address] Fely Bose MD Work Phone: [facility] 08-29-2024 12:06-0400 Body mass index (BMI) [Ratio] 25.3 kg/m2 Dr. Fely Bose MD Work Phone: [facility] 08-29-2024 12:06-0400 Body weight 69.[address] Fely Bose MD Work Phone: [facility] 06-30-2024 11:24-0400 Body temperature 37.0 degrees Celsius [facility] Comment on above: Performed By: #### 70990-9 #### CHITO SIDDIQI (64609) [facility] ([facility]) [address] [place] [address] 06-30-2024 11:24-0400 SaO2% (BldA) [Mass fraction] 98 % [facility] Comment on above: Performed By: #### 72786-5 #### CHITO SIDDIQI ([id number]) [facility] ([facility]) [address] [place] [address] 06-29-2024 16:53-0400 Body temperature 37.0 degrees Celsius [facility] Comment on above: Performed By: #### 3040-3 #### CHITO SIDDIQI ([id number]) [facility] ([facility]) [address] [place] [address] 06-29-2024 16:53-0400 SaO2% (BldA) [Mass fraction] 96 % [facility] Comment on above: Performed By: #### 3040-3 #### CHITO SIDDIQI ([id number]) [facility] ([facility]) [address] [place] [address] 06-18-2024 20:58-0500 Body temperature 98.5 [degF] Dr. Fely Bose MD Work Phone: [facility] 06-18-2024 20:58-0500 Diastolic blood pressure 85 mm[Hg] Dr. Fely Bose MD Work Phone: [facility] 06-18-2024 20:58-0500 Heart rate 85 /min Dr. Fely Bose MD Work Phone: [facility] 06-18-2024 20:58-0500 Respiratory rate 16 /min Dr. Fely Bose MD Work Phone: [facility] 06-18-2024 20:58-0500 SaO2% (BldA) [Mass fraction] 96 % Dr. Fely Bose MD Work Phone: [facility] 06-18-2024 20:58-0500 Systolic blood pressure 137 mm[Hg] Dr. Fely Bsoe MD Work Phone: [facility] 06-18-2024 13:36-0500 Body mass index (BMI) [Ratio] 22.3 kg/m2 Dr. Fely Bose MD Work Phone: [facility] 06-18-2024 13:36-0500 Body weight 60.[address] Fely Bose MD Work Phone: [facility] 06-15-2024 14:23-0500 Body temperature 97.6 [degF] Dr. Fely Bose MD Work Phone: [facility] 06-15-2024 14:23-0500 Diastolic blood pressure 96 mm[Hg] Dr. Fely Bose MD Work Phone: [facility] 06-15-2024 14:23-0500 Heart rate 128 /min Dr. Fely Bose MD Work Phone: [facility] 06-15-2024 14:23-0500 Respiratory rate 18 /min Dr. Fely Bose MD Work Phone: [facility] 06-15-2024 14:23-0500 SaO2% (BldA) [Mass fraction] 98 % Dr. Fely Bose MD Work Phone: [facility] 06-15-2024 14:23-0500 Systolic blood pressure 150 mm[Hg] Dr. Fely Bose MD Work Phone: [facility] 05-01-2024 10:55-0500 Body temperature 98.7 [degF] Dr. Fely Bose MD Work Phone: [facility] 05-01-2024 10:55-0500 Diastolic blood pressure 63 mm[Hg] Dr. Fely Bose MD Work Phone: [facility] 05-01-2024 10:55-0500 Heart rate 108 /min Dr. Fely Bose MD Work Phone: [facility] 05-01-2024 10:55-0500 Respiratory rate 16 /min Dr. Fely Bose MD Work Phone: [facility] 05-01-2024 10:55-0500 SaO2% (BldA) [Mass fraction] 94 % Dr. Fely Bose MD Work Phone: [facility] 05-01-2024 10:55-0500 Systolic blood pressure 126 mm[Hg] Dr. Fely Bose MD Work Phone: [facility] 04-30-2024 11:21-0500 Body weight 83.[address] Fely Bose MD Work Phone: [facility] 04-29-2024 22:47-0500 Body mass index (BMI) [Ratio] 30.7 kg/m2 Dr. Fely Bose MD Work Phone: [facility] 04-10-2024 19:24-0500 Diastolic blood pressure 70 mm[Hg] Michele De Santiago DO Work Phone: [facility] 04-10-2024 19:24-0500 Heart rate 84 /min Michele De Santiago DO Work Phone: [facility] 04-10-2024 19:24-0500 Respiratory rate 14 /min Michele De Santiago DO Work Phone: [facility] 04-10-2024 19:24-0500 SaO2% (BldA) [Mass fraction] 98 % Michele De Santiago DO Work Phone: [facility] 04-10-2024 19:24-0500 Systolic blood pressure 128 mm[Hg] Michele De Santiago DO Work Phone: [facility] 04-10-2024 13:34-0500 Body temperature 98.01 [degF] Michele De Santiago Work Phone: [facility] 03-24-2024 22:20-0500 Diastolic blood pressure 70 mm[Hg] Millie Evans MD Work Phone: [facility] 03-24-2024 22:20-0500 Heart rate 88 /min Millie Evans MD Work Phone: [facility] 03-24-2024 22:20-0500 Respiratory rate 16 /min Millie Evans MD Work Phone: [facility] 03-24-2024 22:20-0500 SaO2% (BldA) [Mass fraction] 99 % Millie Evans MD Work Phone: [facility] 03-24-2024 22:20-0500 Systolic blood pressure 138 mm[Hg] Millie Evans MD Work Phone: [facility] 03-24-2024 19:01-0500 Body mass index (BMI) [Ratio] 24.46 kg/m2 Millie Evans MD Work Phone: [facility] 03-24-2024 19:01-0500 Body weight 66.68 kg Millie Evans MD Work Phone: [facility] 03-24-2024 18:27-0500 Body temperature 97.7 [degF] Millie Evans MD Work Phone: [facility] 03-13-2024 13:51-0500 Body height 166.4 cm Eloise HARRIS-C Work Phone: [facility] 03-13-2024 13:51-0500 Body mass index (BMI) [Ratio] 23.66 kg/m2 Eloise Terrazas PA-C Work Phone: [facility] 03-13-2024 13:51-0500 Body temperature 98.01 [degF] Eloise Newbill PA-C Work Phone: [facility] 03-13-2024 13:51-0500 Body weight 65.5 kg Eloise Newbill PA-C Work Phone: [facility] 03-13-2024 13:51-0500 Diastolic blood pressure 88 mm[Hg] Eloise Newbill PA-C Work Phone: [facility] 03-13-2024 13:51-0500 Heart rate 112 /min Eloise Newbill PA-C Work Phone: [facility] 03-13-2024 13:51-0500 Respiratory rate 16 /min Eloise Newbill PA-C Work Phone: [facility] 03-13-2024 13:51-0500 SaO2% (BldA) [Mass fraction] 99 % Eloise Newbill PA-C Work Phone: [facility] 03-13-2024 13:51-0500 Systolic blood pressure 136 mm[Hg] Eloise Newbill PA-C Work Phone: [facility] 12-18-2023 13:59-0400 Blood Pressure Cuff Size GUILLERMINA ROGERS MD [facility] 12-18-2023 13:59-0400 Blood Pressure Location GUILLERMINA ROGERS MD [facility] 12-18-2023 13:59-0400 Blood Pressure Method GUILLERMINA ROGERS MD [facility] 12-18-2023 13:59-0400 Body temperature 97.88 [degF] GUILLERMINA ROGERS MD [facility] 12-18-2023 13:59-0400 Diastolic Blood Pressure Non-Invasive 62 mm[Hg] GUILLERMINA ROGERS MD [facility] 12-18-2023 13:59-0400 Heart rate 90 /min GUILLERMINA ROGERS MD [facility] 12-18-2023 13:59-0400 Respiratory rate 17 /min GUILLERMINA ROGERS MD [facility] 12-18-2023 13:59-0400 Systolic Blood Pressure Non-Invasive 96 mm[Hg] GUILLERMINA ROGERS MD [facility] 08-05-2023 13:56-0400 Body temperature 97.9 [degF] [facility] 08-05-2023 13:56-0400 Diastolic blood pressure 69 mm[Hg] [facility] 08-05-2023 13:56-0400 Heart rate 78 /min [facility] 08-05-2023 13:56-0400 Respiratory rate 18 /min [facility] 08-05-2023 13:56-0400 SaO2% (BldA) [Mass fraction] 95 % [facility] 08-05-2023 13:56-0400 Systolic blood pressure 118 mm[Hg] [facility] 08-05-2023 12:01-0400 Body height 165.1 cm [facility] 08-05-2023 12:01-0400 Body mass index (BMI) [Ratio] 28 kg/m2 [facility] 08-05-2023 12:01-0400 Body weight 76.61 kg [facility] Encounters Encounter Date Encounter Type Care Provider Facility Start: 09-01-2024 End: 09-01-2024 Emergency department patient visit Dr. Fely Bose MD Work Phone: -Emergency Department Work Phone: Start: 08-31-2024 End: 08-31-2024 Emergency department patient visit Dr. Fely Bose MD Work Phone: -Emergency Department Work Phone: Start: 08-29-2024 End: 08-29-2024 Emergency department patient visit Dr. Fely Bose MD Work Phone: -Emergency Department Work Phone: Start: 07-28-2024 End: 07-31-2024 Patient encounter procedure Silvestre Murray [employer] Work Phone: [facility] Start: 07-28-2024 End: 07-31-2024 Progress Note Silvestre Murray APRN.[employer]FFER Work Phone: [facility] Start: 07-17-2024 End: 07-24-2024 Patient encounter procedure Silvestre Murray APRN.[employer] Work Phone: [facility] Start: 07-17-2024 End: 07-24-2024 Progress Note Silvestre Murray [employer] WORKER[employer] Work Phone: [facility] Start: 07-14-2024 End: 07-15-2024 Patient encounter procedure Jesus Lindsey MD Work Phone: [employer] Start: 07-14-2024 End: 07-15-2024 Progress Note Jesus Lindsey MD Work Phone: [employer] [facility] Start: 06-29-2024 End: 08-17-2024 ambulatory JOSE MIGUEL F [facility] Start: 06-29-2024 End: 06-29-2024 Subsequent hospital visit by physician Rehan Navarro [facility] Start: 06-29-2024 End: 07-13-2024 Evaluation and management of inpatient [facility] Start: 06-18-2024 End: 06-18-2024 Emergency department patient visit Dr. Albert Mccoy MD -Emergency Department Work Phone: Start: 06-15-2024 End: 06-15-2024 Emergency department patient visit ED PHYSICIAN PROVIDER -Emergency Department Work Phone: Start: 05-11-2024 ambulatory [place] Facility :[facility] Start: 05-11-[address] Teri Franklin MD -[facility] Start: 05-04-2024 ambulatory [place] Facility :[facility] Start: 05-04-[address] Teri Franklin MD -[facility] Start: 05-01-2024 Non-patient / Non-visit Dr. Eva Ma MD -[facility] Work Phone: Start: 04-29-2024 ambulatory Fely Lidya Facility :[facility] Start: 04-29-2024 End: 05-01-2024 Evaluation and management of inpatient Dr. Farhad Ma MD -Progressive Care Unit Work Phone: Start: 04-24-2024 ambulatory [place] Facility :[facility] Start: 04-23-2024 ambulatory Fely Lidya Facility :[facility] Start: 04-23-2024 End: 04-29-2024 Evaluation and management of inpatient [place] Facility:[facility] Start: 04-10-2024 End: 04-10-2024 Emergency department patient visit Michele De Santiago DO Work Phone: [facility] Emergency Department Comment on above: Hyperglycemia (Prima ry Dx); Yeast infection Start: 04-10-2024 Emergency department patient visit Physician Ashly [facility] Start: 03-24-2024 End: 03-24-2024 Emergency department patient visit Millie Evans MD Work Phone: [facility] Emergency Department Comment on above: Hyperglycemia (Prima ry Dx); Acute cystitis without hematuria Start: 03-19-2024 End: 03-19-2024 ambulatory Trina Collier [facility] Start: 03-19-2024 End: 03-19-2024 Follow-up encounter Trina Collier [facility] Comment on above: SPP Hepatology - Fol low-up (HCV+ lab note) Start: 03-13-2024 End: 03-13-2024 Office outpatient new 45 minutes Eloise Terrazas PA-C Work Phone: [facility] Comment on above: Acute maxillary sinu sitis, recurrence not specified (Primary Dx); Diabetic ulcer of left midfoot associated with type 2 diabetes mellitus, unspecified ulcer stage (Multi); Encounter for wound care; Encounter for removal of sutures Start: 03-13-2024 End: 03-13-2024 ambulatory [facility] Start: 03-11-2024 ambulatory [place] Facility :[facility] Start: 02-24-2024 ambulatory Fely Lidya Facility :[facility] Start: 02-24-2024 End: 02-24-2024 ambulatory Fely Lidya Facility:[facility] Start: 02-21-2024 ambulatory Fely Lidya Facility :[facility] Start: 02-21-2024 End: 02-29-2024 Evaluation and management of inpatient [place] Facility:[facility] Start: 02-18-2024 End: 02-18-2024 Emergency department patient visit GLENYS Facility:[facility] Start: 02-08-2024 End: 02-09-2024 ambulatory Sisi Gasca Facility:[facility] Start: 01-29-2024 Emergency department patient visit Physician No [facility] Start: 01-29-2024 End: 01-29-2024 Emergency department patient visit Physician No [facility] Start: 01-23-2024 [facility] Start: 01-22-2024 End: 01-23-2024 Emergency department patient visit Physician No [facility] Start: 01-12-2024 Emergency department patient visit Facility:[id number] Start: 01-03-2024 Emergency department patient visit Facility:[id number] Start: 01-03-2024 End: 01-04-2024 Admission to [facility] Lisa HAMM [facility] Intake Start: 01-03-2024 End: 01-04-2024 ambulatory Lisa HAMM [facility] Comment on above: Medical Clearance (P t brought in by [facility] for medical clearance to go to [facility].) Start: 12-25-2023 Emergency department patient visit Facility:[id number] Start: 12-19-2023 Encounter for preprocedural cardiovascular examination Charleen Badillo [facility] Start: 12-18-2023 End: 12-18-2023 Emergency department patient visit GUILLERMINA ROGERS MD [facility] Start: 11-21-2023 End: 11-21-2023 Emergency department patient [place] [id number] Facility:[facility] Start: 11-17-2023 End: 11-17-2023 Emergency department patient visit [place] [address] Facility:[facility] Start: 11-13-[address] Lissette Bose MD Work Phone: [facility] Start: 11-12-2023 ambulatory Сергей Simeon Facility: [facility] Start: 11-12-2023 End: 11-13-2023 Evaluation and management of inpatient Сергей Simeon Facility:[facility] Start: 11-11-2023 ambulatory [place] [address] Facility:[facility] Start: 11-03-2023 End: 11-04-2023 Emergency department patient visit [place] [address] Facility:[facility] Start: 09-25-2023 End: 09-26-2023 Emergency department patient visit Ed Physician Provider Facility:[facility] Start: 08-05-2023 End: 08-05-2023 Emergency department patient visit [facility]gency Department Work Phone: Procedures Date Procedure Procedure Detail Performing Clinician Start: 09-01-2024 Methadone measuremen t, urine Dr. Fely Bose MD Work Phone: Start: 09-01-[address] Fely Bose MD Work Phone: Start: 09-01-2024 X-ray of chest, PA a nd lateral views Dr. Fely Bose MD Work Phone: Start: 08-31-2024 Urnls dip stick/tabl et reagent auto microscopy Dr. Fely Bose MD Work Phone: Start: 08-31-[address] Fely Bose MD Work Phone: Start: 08-29-2024 X-ray of chest, PA a nd lateral views Dr. Fely Bose MD Work Phone: Start: 08-29-[address] Lauren Bose MD Work Phone: Start: 08-29-2024 Urnls dip stick/tabl et reagent auto microscopy Dr. Fely Bose MD Work Phone: Start: 08-29-[address] Fely Bose MD Work Phone: Start: 06-29-2024 Ecg routine ecg w/le ast 12 lds trcg only w/o i&r Jose Miguel Marcum MD Work Phone: Start: 06-18-2024 Methadone measuremen t, urine Dr. Fely Bose MD Work Phone: Start: 06-18-[address] Fely Bose MD Work Phone: Start: 05-11-2024 Measurement of renal function Dr. Fely Bose MD Work Phone: Comment on above: GFR Calc Start: 05-04-2024 Measurement of renal function Dr. Fely Bose MD Work Phone: Comment on above: GFR Calc Start: 05-04-2024 Vitamin D, 25-hydrox y measurement Dr. Fely Bose MD Work Phone: Comment on above: Vitamin D 25(OH) Sta tus Range Deficiency <20 ng/mL (50nmol/L) Insufficiency 20 - 30 ng/mL (50 - 75 nmol/L) Sufficiency 30 - 100 ng/mL (75 - 250 nmol/L) Toxicity >100 ng/mL (>250 nmol/L) Start: 05-01-[address] Fely Bose MD Work Phone: Start: 05-01-2024 Flow cytometry cell surf marker techl only 1st Dr. Fely Bose MD Work Phone: Start: 05-01-2024 Measurement of renal function Dr. Fely Bose MD Work Phone: Comment on above: GFR Calc Start: 04-30-2024 Plain chest X-ray Dr. Lissette Bose MD Work Phone: Start: 04-29-2024 Plain X-ray of femur Dr Lorne Bose MD Work Phone: Start: 04-29-2024 XR knee, [address] Bonita BAUMANN Work Phone: Start: 04-29-2024 Measurement of 3,4-methylenedioxymethamp hetamine in urine Dr. Fely Bose MD Work Phone: Start: 04-29-2024 Methadone measuremen t, urine Dr. Fely Bose MD Work Phone: Start: 04-29-[address] Fely Bose MD Work Phone: Start: 04-29-2024 Urnls dip stick/tabl et reagent auto microscopy Dr. Fely Bose MD Work Phone: Start: 04-29-2024 CT cervical spine wi thout contrast Dr. Fely Bose MD Work Phone: Start: 04-29-2024 CT of head without contrast Dr. Fely Bose MD Work Phone: Start: 04-29-2024 CT of thorax, abdome n and pelvis with contrast Dr. Fely Bose MD Work Phone: Start: 04-29-2024 Blood disorder - ini tial assessment Dr. Fely Bose MD Work Phone: Start: 04-29-2024 Lymphocyte percent differential count Dr. Fely Bose MD Work Phone: Start: 04-29-[address] Lauern Bose MD Work Phone: Start: 04-29-2024 Legionella pneumophi la antigen assay Dr. Fely Bose MD Work Phone: Start: 04-29-2024 SARS-CoV-2, Influenz a & RSV (PCR) Dr. Fely Bose MD Work Phone: Start: 04-29-2024 End: 04-29-2024 Streptococcus pneumoniae antigen assay Dr. Fely Bose MD Work Phone: Start: 04-29-[address] Lauren Bose MD Work Phone: Start: 04-10-2024 End: 04-10-2024 Gluc bld gluc mntr dev cleared fda spec home use Xiomy Fajardo DO Work Phone: Start: 04-10-2024 Radiologic exam ches t 2 views Xiomy Fajardo DO Work Phone: Start: 04-10-2024 Ecg routine ecg w/le ast 12 lds w/i&r Xiomy Fajardo DO Work Phone: Start: 04-10-2024 End: 04-10-2024 Comprehensive metabolic panel Xiomy Fajardo DO Work Phone: Start: 04-10-2024 Gases blood ph only Becca Fajardo DO Work Phone: Start: 04-10-2024 Urnls dip stick/tabl et reagent auto microscopy Xiomy Fajardo DO Work Phone: Start: 03-24-2024 End: 03-24-2024 Comprehensive metabolic panel Millie Evans MD Work Phone: Start: 03-24-2024 Gases blood ph only Jasbir Evans MD Work Phone: Start: 03-24-2024 Urnls dip stick/tabl et reagent auto microscopy Millie Evans MD Work Phone: Start: 08-05-2023 Plain x-ray of humerus Start: 08-05-2023 X-ray of chest posteroanterior view Start: 11-08-2021 Lipid 1996 panel - S yuly or Plasma Silvestre Murray [employer] WORKER[employer] Work Phone: Start: 12-06-2011 End: 07-31-2013 H/O: hysterectomy S/P subtotal hysterectomy Lisa HAMM Plan of Treatment Date Care Activity Detail Author Start: 04-29-2034 DTaP/Tdap/Td Vaccine s (3 - Td or Tdap) DTaP/Tdap/Td Vaccines (3 - Td or Tdap) [facility] Start: 06-23-2028 DTaP/Tdap/Td vaccine (2 - Td or Tdap) DTaP/Tdap/Td vaccine (2 - Td or Tdap) [facility] Start: 06-23-2028 Urine microalbumin profile DTaP,Tdap,Td Vaccine (2 - Td or Tdap) [facility] Start: 01-11-2027 Diabetes Screening Diabetes Screenin g [facility] Start: 11-08-2026 Lipid panel Lipid Screening [facility] Start: 04-10-2025 GFR test (Diabetes, CKD 3-4, OR last GFR 15-59) GFR test (Diabetes, CKD 3-4, OR last GFR 15-59) [facility] Start: 03-24-2025 GFR test (Diabetes, CKD 3-4, OR last GFR 15-59) GFR test (Diabetes, CKD 3-4, OR last GFR 15-59) [facility] Start: 09-29-2024 Hemoglobin A1c measurement Diabetes: Hemoglobin A1C [facility] Start: 09-01-2024 [facility] Start: 09-01-2024 [facility] Start: 08-31-2024 [facility] Start: 08-31-2024 [facility] Start: 08-31-2024 Bacteria identified in Urine by Culture Urine Culture [facility] Start: 08-29-2024 End: 08-29-2024 [facility] Start: 08-29-2024 Consultation [facility] Start: 08-29-2024 Bacteria identified in Urine by Culture Urine Culture [facility] Start: 08-29-2024 [facility] Start: 06-18-2024 [facility] Start: 06-18-2024 [facility] Start: 06-18-2024 Referral to service [facility] Start: 06-18-2024 End: 06-18-2024 Suicide precautions [facility] Start: 05-01-2024 Patient discharge [facility] Start: 04-30-2024 Referral to occupati onal therapist [facility] Start: 04-30-2024 Referral to service [facility] Start: 04-30-2024 Inhalation therapy procedure [facility] Start: 04-29-2024 Application of intermittent pneumatic compression device [facility] Start: 04-29-2024 Following clinical pathway protocol [facility] Start: 04-29-2024 Cardiac monitoring [facility] Start: 04-29-2024 Catheterization of vein [facility] Start: 04-29-2024 Notification of physician [facility] Start: 04-29-2024 [facility] Start: 04-29-2024 Admission procedure [facility] Start: 04-29-2024 Consultation [facility] Start: 04-29-2024 Patient referral to dietitian [facility] Start: 03-25-2024 Hemoglobin A1c measurement HbA1C [facility] Start: 01-23-2024 Annual Wellness Visi t (Medicare) Annual Wellness Visit (Medicare) [facility] Start: 12-25-2023 Hepatitis B screening Urine Albumin:Creatinine Ratio [facility] Start: 12-15-2023 COVID-19 Vaccine ( season) COVID-19 Vaccine ( season) [facility] Start: 12-15-2023 COVID-19 Vaccine ( season) COVID-19 Vaccine ( season) [facility] Start: 12-15-2023 Covid-19 Vaccine ( season) Covid-19 Vaccine ( season) [facility] Start: 12-15-2023 Influenza vaccination Influenza Vacc ine (#1) [facility] Start: 11-14-2023 Influenza vaccination Flu vaccine (# 1) [facility] Start: 08-05-2023 End: 08-05-2023 [facility] Start: 11-08-2022 Hepatitis B surface antibody level LDL Cholesterol [facility] Start: 2020 Shingles vaccine (1 of 2) Yu gles vaccine (1 of 2) [facility] Start: 2020 Shingrix Vaccine (1 of 2) Yu grix Vaccine (1 of 2) [facility] Start: 2020 Zoster Vaccines (1 of 2) Zoste r Vaccines (1 of 2) [facility] Start: 10-04-2015 Screening for malign ant neoplasm of colon [facility] Start: 07-31-2014 Diabetic foot examination Diabetic F oot Exam [facility] Start: 05-22-2013 Glaucoma screening Dilated Retinal E xam [facility] Start: 10-31-2011 Screening for malign ant neoplasm of breast Mammogram Screening [facility] Start: 2010 Screening for malign ant neoplasm of breast [facility] Start: 2000 Screening for malign ant neoplasm of cervix [facility] Start: 10-04-1991 Screening for malign ant neoplasm of cervix [facility] Start: 1989 Hepatitis A Vaccines (1 of 2 - Risk 2-dose series) Hepatitis A Vaccines (1 of 2 - Risk 2-dose series) [facility] Start: 1989 Hepatitis B vaccine (1 of 3 - 19+ 3-dose series) Hepatitis B vaccine (1 of 3 - 19+ 3-dose series) [facility] Start: 1989 Hepatitis B Vaccines (1 of 3 - 19+ 3-dose series) Hepatitis B Vaccines (1 of 3 - 19+ 3-dose series) [facility] Start: 1989 Pneumococcal vaccination Pneum ococcal Vaccine (1 of 2 - PCV) [facility] Start: 1988 Annual PCP Team [employer] michael Disease Visit Annual PCP Team Chronic Disease Visit [facility] Start: 1988 Anxiety Screening Anxiety Screening [facility] Start: 1988 Depression Screening Depression Scre ening [facility] Start: 1988 Glaucoma screening Diabetic retinal exam [facility] Start: 1988 Hepatitis C screening B on [facility] Start: 1988 Urine screening for protein Diabetic Alb to Cr ratio (uACR) test [facility] Start: 1985 HIV screening HIV screen [facility] [employer] Start: 1982 Depression Screen Depression Screen [facility] Start: 1980 Diabetic foot examination Diabetic f oot exam [facility] Start: 1980 Glaucoma screening Diabetes: R etinopathy Screening [facility] Start: 1980 Hemoglobin A1c measurement A1C test (Diabetic or Prediabetic) [facility] Start: 1980 Lipid panel Lipids [facility] [employer] Start: 1976 Pneumococcal 0-64 ye ars Vaccine (1 of 2 - PCV) Pneumococcal 0-64 years Vaccine (1 of 2 - PCV) [facility] Start: 10-04-1971 MMR Vaccines (1 of 1 - Standard series) MMR Vaccines (1 of 1 - Standard series) [facility] Start: 1970 Annual wellness visit Welcome to Medicare Visit [facility] Start: 1970 HIV screening HIV Screening [facility] Start: 1970 Lipid panel Lipid Panel [facility] Start: 1970 Screening for malign ant neoplasm of colon [facility] Start: 1970 Urine screening for protein Diabetes: Urine Protein Screening [facility] End: 03-24-2024 Beta-Hydroxybutyrate [facility] Comment on above: One Time for 1 Occur rences starting 03/24/2024 until 03/24/2024 End: 04-10-2024 Culture, Urine [facility] Comment on above: One Time for 1 Occur rences starting 04/10/2024 until 04/10/2024 EKG 12 Lead EKG 12 Lead ECG STAT 04/10/2024 2:36 PM EST [facility] Patient Education [facility] Work Phone: Patient referral [facility] Work Phone: Urine culture [facility] Urine culture [facility] Immunizations Immunization Date Immunization Notes Care Provider Fa cility 04-29-2024 tetanus toxoid, redu farzad diphtheria toxoid, and acellular pertussis vaccine, adsorbed Dr. Fely Bose MD Work Phone: [facility] 02-08-2024 influenza, seasonal, injectable, preservative free Dr. Fely Bose MD Work Phone: [facility] 06-23-2018 influenza, injectabl e, quadrivalent, contains preservative [facility] 06-23-2018 tetanus toxoid, redu farzad diphtheria toxoid, and acellular pertussis vaccine, adsorbed [facility] 06-23-2018 influenza virus vaccine, unspecified formulation [facility] 06-19-2010 tuberculin skin test ; purified protein derivative solution, intradermal [facility] Payers Date Payer Category Payer Medicare [id number] 2024 Medicare (Managed Care) 1.2. [id number] 2024 Medicare [id number] 2023 Medicaid [id number] 2023 Self-pay 2023 Unknown [facility] MEDICARE ADVANTAGE O [id number] 2023-Present [phone] [address] [place] [address] HMO [id number]. [id number] 2023 Unknown [id number] 2019 Medicaid [id number] 1970 Unknown [id number] 2.16.840.1.565000.3.579.2. 627 1970 Unknown [id number] .16840.1.357429.3.579.2. 627 1970 Unknown [id number] 2.16.840.1.841776.3.579.2. 1243 1970 Unknown [id number] 2.16.840.1.016386.3.579.2. 204 1970 Unknown [id number] 2.16.840.1.864067.3.579.2. 204 1970 Unknown [id number] 2.16.840.1.688506.3.579.2. 204 1970 Unknown [id number] 2.16840.1.162362.3.579.2. 204 1970 Unknown [id number] 2.16.840.1.863082.3.579.2. 204 1970 Unknown [id number] 2.16840.1.057885.3.579.2. 204 1970 Unknown [id number] 2.840.1.189639.3.579.2. 204 1970 Unknown [id number] 2.840.1.823860.3.579.2. 1242 1970 Unknown [id number] 2.840.1.026929.3.579.2. 1242 Unknown [facility] [id number] Unknown [id number] 2.840.1.357170.3.579.2. 462 Unknown [id number] 2.840.1.583162.3.579.2. 462 Unknown [id number] 2.840.1.434175.3.579.2. 462 Unknown [id number] 2.16840.1.501115.3.579.2. 462 Unknown [id number] 2.16840.1.547800.3.579.2. 462 Unknown [id number] 2.16840.1.168388.3.579.2. 462 Unknown [id number] 2.840.1.478133.3.579.2. 462 Unknown [id number] 2.840.1.397567.3.579.2. 462 Unknown [id number] 2.16.840.1.617066.3.579.2. 462 Unknown [id number] 2.16.840.1.460975.3.579.2. 462 Unknown [id number] 2.16.840.1.173777.3.579.2. 462 Unknown [id number] 2.16.840.1.591438.3.579.2. 462 Unknown [id number] 2.16.840.1.081603.3.579.2. 462 Unknown [id number] 2.16.840.1.655254.3.579.2. 462 Unknown [id number] 2.16.840.1.481796.3.579.2. 462 Unknown [id number] 2.16.840.1.171368.3.579.2. 462 Unknown [id number] 2.16.840.1.955697.3.579.2. 462 Unknown [id number] 2.16.840.1.987705.3.579.2. 462 Unknown [id number] 2.16.840.1.381172.3.579.2. 462 Unknown [id number] 2.16.840.1.853775.3.579.2. 462 Unknown [id number] 2.16.840.1.402295.3.579.2. 462 Unknown [id number] 2.16.840.1.460250.3.579.2. 462 Unknown [id number] 2.16.840.1.825422.3.579.2. 462 Unknown [id number] 2.16.840.1.034636.3.579.2. 462 Unknown [id number] 2.16.840.1.142527.3.579.2. 462 Unknown [id number] 2.16.840.1.102353.3.579.2. 462 Unknown [id number] 2.16.840.1.741061.3.579.2. 462 Unknown [id number] 2.16.840.1.621840.3.579.2. 462 Unknown [id number] 2.16.840.1.891827.3.579.2. 462 Unknown [id number] 2.16.840.1.444946.3.579.2. 462 Unknown [id number] 2.16.840.1.267175.3.579.2. 462 Unknown [id number] 2.840.1.563410.3.579.2. 462 Unknown [id number] 2.840.1.412248.3.579.2. 462 Unknown [id number] 2.840.1.367840.3.579.2. 462 Unknown [id number] 2.840.1.573186.3.579.2. 462 Unknown [id number] 2.840.1.445598.3.579.2. 462 Unknown [id number] 2.840.1.311013.3.579.2. 462 Unknown [id number] 2.16840.1.651977.3.579.2. 462 Unknown [id number] 2.16840.1.794846.3.579.2. 462 Unknown [id number] 2.16840.1.752772.3.579.2. 462 Unknown [id number] 2.16840.1.756423.3.579.2. 462 Unknown [id number] 2.16840.1.109276.3.579.2. 462 Unknown [id number] 2.16840.1.262786.3.579.2. 462 Unknown [id number] 2.16840.1.962086.3.579.2. 462 Unknown [id number] 2.840.1.876143.3.579.2. 462 Unknown [id number] 2.16.840.1.345529.3.579.2. 462 Unknown [id number] 2.16.840.1.999606.3.579.2. 462 Unknown [id number] 2.16.840.1.609496.3.579.2. 462 Unknown [id number] 2.16.840.1.758831.3.579.2. 462 Unknown [id number] 2.16.840.1.900954.3.579.2. 462 Unknown [id number] 2.16.840.1.050530.3.579.2. 462 Unknown [id number] 2.16.840.1.422006.3.579.2. 462 Social History Date Type Detail Facility Start: 08-05-2023 Tobacco smoking status VTIS Unknown if ever smoked [facility] Start: 08-05-2023 None [facility] Start: 08-05-2023 Cocaine [facility] Start: 08-05-2023 Alone [facility] Start: 08-05-2023 Non-smoker [facility] Start: 1970 Sex Assigned At Female [facility] Start: 12-25-2023 End: 09-01-2024 Tobacco smoking status Smokes tobacco daily (finding) [facility] Sex Assigned At Sex [facility] Start: 09-01-2003 End: 08-31-2013 History of tobacco use Cigarette Smoker [facility] Start: 12-25-2023 End: 06-30-2024 Cigarettes smoked current (pack per day) - Reported 0.5 [facility] Start: 12-25-2023 End: 03-13-2024 Tobacco use and exposure Smokeless tobacco non-user [facility] Start: 01-03-2024 Alcoholic beverage intake Current non-drinker of alcohol (finding) [facility] Start: 12-27-2023 End: 06-30-2024 [facility] Utilities [facility] Has the [employer], or [employer] threatened to shut off services in your home in past 12Mo No [facility] (I/We) worried javad er (my/our) food would run out before (I/we) got money to buy more. Never true [facility] In the past 12 month s, has lack of transportation kept you from medical appointments or from getting medications? No [facility] Start: 12-25-2023 Tobacco Comment down to 1 cigs per day [facility] Start: 1970 Sex assigned at Not on file [facility] Start: 03-03-2024 End: 03-13-2024 Exposure to SARS-CoV-2 (event) Not sure [facility] Start: 01-22-2024 Tobacco smoking status NHIS Never smoked tobacco [employer] Start: 03-24-2024 End: 04-10-2024 Alcoholic beverage intake Ex-drinker (finding) [employer] How often to you hav e a drink containing alcohol? Never [employer] How hard is it for y ou to pay for the very basics like food, housing, medical care, and heating Somewhat hard [facility] At any time in the p ast 12 months, were you homeless or living in alf [including now]? Yes [facility] Work Phone: Medical Equipment Procedure Code Equipment Code Equipment Origin al Text Equipment Identifier Dates [id number] Start: 12-27-2023 use with insulin pens four times daily for injections. [id number] Start: 12-27-2023 use to test four times a day. [id number] Start: 12-27-2023 Pen Needle, Diab etic 31 gauge x 1/4 needle Start: 02-08-2024 Pen Needle, Diab etic 31 gauge x 1/4 needle Start: 02-08-2024 Pen Needle, Diab etic 31 gauge x 1/4 needle Start: 02-08-2024 Goals Date Patient Goal Desired Activity /State Functional Status Date Assessment Result Facility 06-29-2024 Humiliation, Afraid, Rape, and Kick questionnaire [HARK] [facility] Work Phone: 06-29-2024 Total score [AUDIT-C] -1 025 12:37 PM Ronit Baig, RN [facility] Work Phone: 06-29-2024 Patient Health Quest ionnaire 2 item (PHQ-2) [Reported] [facility] Work Phone: 06-29-2024 [place] - suicide s everity rating scale screener - recent [C-SSRS] [facility] Work Phone: 05-01-2024 Functional status Activity Abili ty With Assist of 1 [facility] Work Phone: 12-27-20[address] score Ser Pl Calc.FibroSure 0.48 [facility] Comment on above: Order Comment: Speci men Type: BLOOD SPECIMEN Ordering Facility: [facility] Address: [address] [place] [address] Performed By: #### [place], [address]-1, 3040-3, 25543-4 #### [facility] CLIA [id number] [address] [place] [address] OF [facility] 12-27-2023 Necroinflammatory ac t score SerPl 0.86 [facility] Comment on above: Order Comment: Speci men Type: BLOOD SPECIMEN Ordering Facility: [facility] Address: [address] [place] [address] Performed By: #### B HB, 92342-2, 3040-3, 90549-5 #### [facility] CLIA [id number] [address] [place] [address] [place] 11-11-2013 Are you deaf, or do you have serious difficulty hearing No 11/11/2013 11:34 AM Abbie Marmolejo RN No [facility] 11-11-2013 Are you blind, or do you have serious difficulty seeing, even when wearing glasses No 11/11/2013 11:34 AM Abbie Marmolejo RN No [facility] 11-11-2013 Do you have serious difficulty walking or climbing stairs No 11/11/2013 11:34 AM Abbie Marmolejo RN No [facility] 11-11-2013 Do you have difficul ty dressing or bathing No 11/11/2013 11:34 AM Abbie Marmolejo RN No [facility] 11-11-2013 Because of a physica l, mental, or emotional condition, do you have difficulty doing errands alone such as visiting a physician's office or shopping No 11/11/2013 11:34 AM Abbie Marmolejo RN No [facility] Work Phone: Mental Status Date Assessment Result Facility 08-31-2024 Cognitive function Level Of Cons ciousness Awake;Alert;Appropriate;Fol lows Commands [facility] Work Phone: 08-29-2024 Cognitive function Level Of Cons ciousness Awake;Alert;Appropriate;Fol lows Commands [facility] Work Phone: 05-01-2024 Cognitive function Voice/Name [facility] Work Phone: 11-11-2013 Because of a physica l, mental, or emotional condition, do you have serious difficulty concentrating, remembering, or making decisions No 11/11/2013 11:34 AM Abbie Marmolejo RN No [facility] Clinical Notes 11-14-2023 to 09-01-2024 Note Date & Type Note Facility 09-01-2024 Discharge summary Note Date/Time September 01, 2024 3:51p m [facility] Medical Records Department [address] [place] [address] Emergency Department Summary 09/01/24 MR#: [id number] Acct: [id number] Name: WILLIAMANA CRISTINA CEDEÑO Rep #:[id number] : 1970 53 From: Chetna Jeffries PCP: Care Physician,No Primary Status :REG ER Location: ED HPI History of Present Illness Chief Complaint: Shortness of Breath Informant: patient Narrative Narrative: Patient 53-year-old female with history of drug abuse, COPD, diabetes mellitus, bipolar disorder, fibromyalgia, neuropathy and sarcoidosis presenting with chestdiscomfort and shortness of breath. Patient states her chest feels tight and she has had a cough is been productive. Started yesterday. She feels that she needs a breathing treatment. Patient was seen in our ER yesterday for generalized malaise and not feeling well. At that time she recently became homeless and was looking for renal social worker. She was noted to have elevated blood sugar and given some insulin. They would not able to get her to any type of treatment facility last night and she was discharged. Patient states she went to a homeless alf last night. She continues to feel unwell and feels that she needs a breathing treatment. She denies any fevers. Is requesting Toradol for the pain in her hands which she states is consistent with her neuropathy. Denies any drug use since leaving the ER. Denies any swelling of her legs. States discomfort in her chest feels like a tightness. States she overall just feels terrible. No other complaints or concerns reported at this time. [facility] Medical History Diabetic ulcer of foot associated with diabetes mellitus due to underlying condition, with bone involvement without evidence of necrosis Substance abuse Smoker MRSA (methicillin resistant staph aureus) culture positive Hearing loss, left Cancer Anxiety Depression Bipolar disorder GERD (gastroesophageal reflux disease) Cirrhosis Hepatitis Smoker On home oxygen therapy COPD (chronic obstructive pulmonary disease) Failure of outpatient treatment Abnormal EKG Preoperative cardiovascular examination Abdominal wall abscess Hypertension Neuropathy Diabetes Sarcoidosis Home Medications ?Medication ?Instructions ?Recorded ?Last Taken ?Type pen needle, diabetic 31 gauge x #100 ea 02/08/24 Unkno wn Rx 1/ aripiprazole 5 mg tablet 5 mg PO DAILY antidepressant 30 02/29/24 Unknown Rx days #30 tabs buspirone 10 mg tablet 10 mg PO TID depression 30 d ays 02/29/24 Unknown Rx #90 tabs doxepin 25 mg capsule 25 mg PO QHS bipolar 30 days #30 02/29/24 Unknown Rx caps hydroxyzine pamoate 25 mg capsule 50 mg (2 x 25 mg) PO TID anxiety 02/29/24 Unknown Rx (Vistaril) 30 days #180 caps quetiapine 200 mg tablet 200 mg PO QHS bipolar 30 day s #30 02/29/24 Unknown Rx tabs blood-glucose meter #1 ea 08/29/24 Unknown Rx cyclobenzaprine 10 mg tablet 10 mg PO TID PRN muscle s pasm 08/29/24 Unknown History insulin admin supplies (Autoject 2 #1 ea 08/29/24 Unkn own Rx Injection Device subcutaneous insulin pen) insulin glargine 100 unit/mL (3 40 unit subcut BIDCM b lood sugar 08/29/24 Unknown History mL) subcutaneous pen (Lantus Solostar U-100 Insulin) insulin lispro 100 unit/mL 1 sliding scale dose subcut ACHS 08/29/24 Unknown History subcutaneous pen blood sugar pregabalin 50 mg capsule (Lyrica) 50 mg PO BID 5 Unknown History Allergy/AdvReac Type Severity Reaction Status Date / Time aspirin AdvReac Other Verified 09/01/24 07:52 hydromorphone (From Dilaudid) AdvReac Other Verified 09/01/24 07:52 pseudoephedrine HCl (From AdvReac Other Verified 09/01/24 07:52 Sudafed) Surgical History History of cholecystectomy Hx of brain surgery Hx of appendectomy Hx of section Hx of total adrenalectomy Social History household members: none housing: homeless Smoking Status: Current every day smoker tobacco type: cigarettes quit status: considering quitting alcohol intake: never substance use type: former substance user ROS ROS ED Constitutional Constitutional ED: Denies chills or fever(s) Eyes Eyes: Denies change in vision ENT ENT ED: Denies sore throat Cardiovascular Cardiovascular: Reports chest pain Respiratory/Chest Respiratory/Chest: Reports cough and dyspnea Gastrointestinal Gastrointestinal: Denies abdominal pain or vomiting Musculoskeletal Musculoskeletal: Reports arthralgias and myalgias Integumentary Denies rash Neurologic Neurologic: Reports weakness Psychiatric Psychiatric: Reports anxiety Hematologic/Lymphatic Hematologic/Lymphatic: Denies easy bleeding or easy bruising EXAM Physical Exam Const Vital Signs: 09/01/24 07:51 09/01/24 07:58 09/01/24 08:34 Temperature 97 F L Temperature Source Temporal Pulse Rate 79 82 Respiratory Rate 16 18 Respiratory Depth Normal Respiratory Pattern Normal Blood Pressure 136/90 H Blood Pressure Mean 105 Pulse Ox 98 Oxygen Delivery Method Room Air 09/01/24 08:37 09/01/24 09:52 09/01/24 11:59 Temperature Temperature Source Pulse Rate 76 66 Respiratory Rate 22 H 21 H Respiratory Depth Respiratory Pattern Blood Pressure 117/61 Blood Pressure Mean 79 Pulse Ox 100 97 Oxygen Delivery Method Room Air 09/01/24 12:58 09/01/24 15:00 Temperature Temperature Source Pulse Rate 88 73 Respiratory Rate 17 Respiratory Depth Respiratory Pattern Blood Pressure 139/38 H 112/60 Blood Pressure Mean 71 77 Pulse Ox 97 95 Oxygen Delivery Method Room Air Room Air Positive well nourished and well developed General Appearance ED: well developed and NAD HEENT Reports moist mucous membranes Eyes PERRL Neck supple and no JVD Resp normal respiratory effort and clear to auscultation bilaterally Auscultation: Negative for rhonchi, wheezes or diminished lung sounds Cardio regular rate, regular rhythm and no murmurs Cardio Narrative: 2+ radial DP pulses present. No peripheral edema appreciated. GI non-distended Extremity normal to inspection General Extremety ED: Negative for edema or tenderness General Extremity: Negative for edema Neuro oriented x3 Sensorium / Orientation: alert Motor Exam: Negative for general weakness Psych mental status grossly normal Mood & Affect: anxious Skin Skin Narrative: Healing abrasions on the feet (dorsal aspect)?patient states they are from her shoes MDM MDM MDM Narrative Medical decision making narrative: Patient evaluated for chest tightness, cough and generalized malaise. She was seen in our ER last night but at that time was more for generalized malaise symptoms social issues (drug abuse and homelessness). She reports crack cocaineabuse to me but reported methamphetamine abuse last night. Patient does not appear to be in any type of active withdrawal. Given her risk factors (diabetes, tobacco use) will take cardiac workup for her chest discomfort. Will give breathing treatments and Toradol for her symptoms per herrequest. Patient normal kidney function last night. Anticipate if workup is negative can be discharged home. Differential includes is not limited to psychosomatic pain, malingering, ACS, uncontrolled diabetes mellitus, neuropathy pain, electrolyte abnormality, pneumothorax, pneumonia. Workup is normal. Patient is mildly hyperglycemic with a glucose of 318 howevershe does not have laboratory findings concerning for DKA or HHNK. Chest x-ray viewed by myself as well as radiology does not show any acute process. Patient is medically cleared to be discharged from the ER. She does request to speak with social work. They will try to get her to an outpatient detox facility. Patient is amenable to this. After discussion with case management patient now admits to being suicidal. Shestates she tried to jump off a bridge yesterday but did not tell anyone. [place] slip is filed and suicide precautions started. Patient ultimately is accepted at [facility] by Dr. Wilcox Lab Data Attestation: I reviewed the patient's lab results. Labs: Laboratory Results - last 24 hr 09/01/24 09/01/24 09/01/24 08:27 11:10 12:27 WBC 4.3 L RBC 4.80 Hgb 13.6 Hct 39.7 MCV 82.7 MCH 28.3 MCHC 34.3 RDW Std Deviation 39.3 RDW Coeff of Cele 13.1 Plt Count 186 MPV 9.8 Immature Gran % (Auto) 0.500 Neut % (Auto) 62.1 Lymph % (Auto) 22.1 Sibley % (Auto) 11.3 H Eos % (Auto) 3.5 Baso % (Auto) 0.5 Absolute Neuts (auto) 2.7 Absolute Lymphs (auto) 0.96 Nucleated RBC % 0 Sodium 141 Potassium 3.5 Chloride 106 Carbon Dioxide 24.7 Anion Gap 10 BUN 7 Creatinine 0.50 L Estim Creat Clear Calc 117.09 Est GFR (MDRD) Non-Af 112 BUN/Creatinine Ratio 13.7 Glucose 318 H Calcium 8.8 Total Creatine Kinase 31 Troponin T High Sens < 6 Troponin T Hi Sens 2 Hr < 6 Troponin T Hi Sens 4Hr < 6 Urine Opiates Screen U Buprenorphine Qual Ur Oxycodone Screen Urine Methadone Screen Urine Fentanyl Screen Ur Barbiturates Screen Ur Phencyclidine Scrn Ur Amphetamines Screen U Benzodiazepines Scrn Urine Cocaine Screen U Cannabinoids Screen 09/01/24 14:10 WBC RBC Hgb Hct MCV MCH MCHC RDW Std Deviation RDW Coeff of Cele Plt Count MPV Immature Gran % (Auto) Neut % (Auto) Lymph % (Auto) Sibley % (Auto) Eos % (Auto) Baso % (Auto) Absolute Neuts (auto) Absolute Lymphs (auto) Nucleated RBC % Sodium Potassium Chloride Carbon Dioxide Anion Gap BUN Creatinine Estim Creat Clear Calc Est GFR (MDRD) Non-Af BUN/Creatinine Ratio Glucose Calcium Total Creatine Kinase Troponin T High Sens Troponin T Hi Sens 2 Hr Troponin T Hi Sens 4Hr Urine Opiates Screen NEGATIVE U Buprenorphine Qual NEGATIVE Ur Oxycodone Screen NEGATIVE Urine Methadone Screen NEGATIVE Urine Fentanyl Screen NEGATIVE Ur Barbiturates Screen NEGATIVE Ur Phencyclidine Scrn NEGATIVE Ur Amphetamines Screen PRESUMPTIVE POSITIVE U Benzodiazepines Scrn NEGATIVE Urine Cocaine Screen PRESUMPTIVE POSITIVE U Cannabinoids Screen NEGATIVE Radiography Chest X-Ray - ED: 2 View, Read by ED Physician, Read by Radiologist and No AcuteDisease Diagnostic Testing: Clinical Impression(s) from Imaging Studies Chest X-Ray 09/01/24 08:27 IMPRESSION: No acute process is identified in the chest. [facility] R[facility] Strip Rhythm Strip: Sinus Rhythm Rate: 70 Ectopy: None EKG Initial EKG: Attestation: I personally reviewed and interpreted this EKG as follows: Interpretation: Sinus Rhythm Comments: Normal sinus rhythm at a rate of 70 bpm Normal axis Normal intervals Normal ST segments Management Discussion w/another healthcare provider: fly worker/Case management Discharge Plan Triage Chief Complaint: Shortness of Breath ED Provider: Chetna Sorensen Dx/Rx/DC Orders Clinical Impression: Hyperglycemia, History of cocaine abuse, Insulin dependent diabetes mellitus, Weakness, History of fibromyalgia, Depression with suicidal ideation Prescriptions: No Action (DME) pen needle, diabetic 31 gauge x 1/4 needle See Rx Instructions .Route Qty: 100 0RF Rx Instructions: As directed cyclobenzaprine 10 mg tablet 10 mg PO TID PRN (Reason: muscle spasm) pregabalin [Lyrica] 50 mg capsule 50 mg PO BID insulin lispro 100 unit/mL insulin pen 1 sliding scale dose subcut ACHS Protocol: 5. Sliding Scale Insulin High Dosing Condition: 150-209 mg/dl = 3 units Condition: 210-259 mg/dl = 6 units Condition: 260-324 mg/dl = 9 units Condition: 325-374 mg/dl = 12 units Condition: 375-409 mg/dl = 14 units Condition: 410-449 mg/dl = 16 units Condition: Greater than 449 call physician Protocol Text: Suggested for: - Patients on Total Daily Insulin Dose of 81-120 units - Very insulin resistant patients HIGH DOSING ALGORITHM Patient Comments: PT TAKES 10 UNITS PLUS SLIDING SCALE DOSE. Rx Instructions: subcutaneously; insulin glargine [Lantus Solostar U-100 Insulin] 100 unit/mL (3 mL) insulin pen 40 unit subcut BIDCM (DME) blood-glucose meter Misc See Rx Instructions .Route Qty: 1 0RF Rx Instructions: As directed (DME) Autoject 2 Injection Device Insulin Pen See Rx Instructions .Route Qty: 1 0RF Rx Instructions: As directed doxepin 25 mg capsule 25 mg PO QHS 30 Days Qty: 30 0RF quetiapine 200 mg tablet 200 mg PO QHS 30 Days Qty: 30 0RF buspirone 10 MG tablet 10 mg PO TID 30 Days Qty: 90 0RF hydroxyzine pamoate [Vistaril] 25 mg capsule 50 mg PO TID 30 Days Qty: 180 0RF aripiprazole 5 mg tablet 5 mg PO DAILY 30 Days Qty: 30 0RF Primary Care Provider: Care Physician,No Primary Referrals: Care Physician,No Primary [Primary Care Provider] - Print Language: [place] Disposition Disposition: Psychiatric Hospital or Unit Discharge Location: [facility] What to do if you have Problems For any increased pain, shortness of breath, bleeding, nausea or vomiting, chestpain, or any unexpected problems, contact your Primary Care Provider. Call [facility] ([phone]) or report to the closest Emergency Room. Call 911 if necessary. 09/01/24 1551 <Electronically signed by Chetna Sorensen DO> Cosigner Signature (if applicable): CC: No Primary Care Physician ~ Signed [facility] Work Phone: [phone]) 795-562205-20-2025 Discharge summary [facility] Medical Records Department [address] [place] [address] Emergency Department Summary 09/01/24 MR#: [id number] Acct: [id number] Name: ANA CRISTINA THOMAS Rep #:[id number] : 1970 53 From: Chetna Jeffries PCP: Care Physician,No Primary Status :REG ER Location: ED HPI History of Present Illness Chief Complaint: Shortness of Breath Informant: patient Narrative Narrative: Patient 53-year-old female with history of drug abuse, COPD, diabetes mellitus, bipolar disorder, fibromyalgia, neuropathy and sarcoidosis presenting with chestdiscomfort and shortness of breath. Patient states her chest feels tight and she has had a cough is been productive. Started yesterday. Shefeels that she needs a breathing treatment. Patient was seen in our ER yesterday for generalized malaise and not feeling well. At that time she recently became homeless and was looking for renal social worker. She was noted to have elevated blood sugar and given some insulin. They would not able to gether to any type of treatment facility last night and she was discharged. Patient states she went to a homeless alf last night. She continues to feel unwell and feels that she needs a breathing treatment. She denies any fevers. Is requesting Toradol for the pain in her hands which she states is consistent with her neuropathy. Denies any drug use since leaving the ER. Denies any swelling of herlegs. States discomfort in her chest feels like a tightness. States she overall just feels terrible. No other complaints or concerns reported at this time. [facility] Medical History Diabetic ulcer of foot associated with diabetes mellitus due to underlying condition, with bone involvement without evidence of necrosis Substance abuse Smoker MRSA (methicillin resistant staph aureus) culture positive Hearing loss, left Cancer Anxiety Depression Bipolar disorder GERD (gastroesophageal reflux disease) Cirrhosis Hepatitis Smoker On home oxygen therapy COPD (chronic obstructive pulmonary disease) Failure of outpatient treatment Abnormal EKG Preoperative cardiovascular examination Abdominal wall abscess Hypertension Neuropathy Diabetes Sarcoidosis Home Medications ?Medication ?Instructions ?Recorded ?Last Taken ?Type pen needle, diabetic 31 gauge x #100 ea 02/08/24 Unkno wn Rx 1/ aripiprazole 5 mg tablet 5 mg PO DAILY antidepressant 30 02/29/24 Unknown Rx days #30 tabs buspirone 10 mg tablet 10 mg PO TID depression 30 d ays 02/29/24 Unknown Rx #90 tabs doxepin 25 mg capsule 25 mg PO QHS bipolar 30 days #30 02/29/24 Unknown Rx caps hydroxyzine pamoate 25 mg capsule 50 mg (2 x 25 mg) PO TID anxiety 02/29/24 Unknown Rx (Vistaril) 30 days #180 caps quetiapine 200 mg tablet 200 mg PO QHS bipolar 30 day s #30 02/29/24 Unknown Rx tabs blood-glucose meter #1 ea 08/29/24 Unknown Rx cyclobenzaprine 10 mg tablet 10 mg PO TID PRN muscle s pasm 08/29/24 Unknown History insulin admin supplies (Autoject 2 #1 ea 08/29/24 Unkn own Rx Injection Device subcutaneous insulin pen) insulin glargine 100 unit/mL (3 40 unit subcut BIDCM b lood sugar 08/29/24 Unknown History mL) subcutaneous pen (Lantus Solostar U-100 Insulin) insulin lispro 100 unit/mL 1 sliding scale dose subcut ACHS 08/29/24 Unknown History subcutaneous pen blood sugar pregabalin 50 mg capsule (Lyrica) 50 mg PO BID 5 Unknown History Allergy/AdvReac Type Severity Reaction Status Date / Time aspirin AdvReac Other Verified 09/01/24 07:52 hydromorphone (From Dilaudid) AdvReac Other Verified 09/01/24 07:52 pseudoephedrine HCl (From AdvReac Other Verified 09/01/24 07:52 Sudafed) Surgical History History of cholecystectomy Hx of brain surgery Hx of appendectomy Hx of section Hx of total adrenalectomy Social History household members: none housing: homeless Smoking Status: Current every day smoker tobacco type: cigarettes quit status: considering quitting alcohol intake: never substance use type: former substance user ROS ROS ED Constitutional Constitutional ED: Denies chills or fever(s) Eyes Eyes: Denies change in vision ENT ENT ED: Denies sore throat Cardiovascular Cardiovascular: Reports chest pain Respiratory/Chest Respiratory/Chest: Reports cough and dyspnea Gastrointestinal Gastrointestinal: Denies abdominal pain or vomiting Musculoskeletal Musculoskeletal: Reports arthralgias and myalgias Integumentary Denies rash Neurologic Neurologic: Reports weakness Psychiatric Psychiatric: Reports anxiety Hematologic/Lymphatic Hematologic/Lymphatic: Denies easy bleeding or easy bruising EXAM Physical Exam Const Vital Signs: 09/01/24 07:51 09/01/24 07:58 09/01/24 08:34 Temperature 97 F L Temperature Source Temporal Pulse Rate 79 82 Respiratory Rate 16 18 Respiratory Depth Normal Respiratory Pattern Normal Blood Pressure 136/90 H Blood Pressure Mean 105 Pulse Ox 98 Oxygen Delivery Method Room Air 09/01/24 08:37 09/01/24 09:52 09/01/24 11:59 Temperature Temperature Source Pulse Rate 76 66 Respiratory Rate 22 H 21 H Respiratory Depth Respiratory Pattern Blood Pressure 117/61 Blood Pressure Mean 79 Pulse Ox 100 97 Oxygen Delivery Method Room Air 09/01/24 12:58 09/01/24 15:00 Temperature Temperature Source Pulse Rate 88 73 Respiratory Rate 17 Respiratory Depth Respiratory Pattern Blood Pressure 139/38 H 112/60 Blood Pressure Mean 71 77 Pulse Ox 97 95 Oxygen Delivery Method Room Air Room Air Positive well nourished and well developed General Appearance ED: well developed and NAD HEENT Reports moist mucous membranes Eyes PERRL Neck supple and no JVD Resp normal respiratory effort and clear to auscultation bilaterally Auscultation: Negative for rhonchi, wheezes or diminished lung sounds Cardio regular rate, regular rhythm and no murmurs Cardio Narrative: 2+ radial DP pulses present. No peripheral edema appreciated. GI non-distended Extremity normal to inspection General Extremety ED: Negative for edema or tenderness General Extremity: Negative for edema Neuro oriented x3 Sensorium / Orientation: alert Motor Exam: Negative for general weakness Psych mental status grossly normal Mood & Affect: anxious Skin Skin Narrative: Healing abrasions on the feet (dorsal aspect)?patient states they are from her shoes MDM MDM MDM Narrative Medical decision making narrative: Patient evaluated for chest tightness, cough and generalized malaise. She was seen in our ER last night but at that time was more for generalized malaise symptoms social issues (drug abuse and homelessness). She reports crack cocaineabuse to me but reported methamphetamine abuse last night. Patient does not appear to be in any type of active withdrawal. Given her risk factors (diabetes, tobacco use) will take cardiac workup for her chest discomfort. Will give breathing treatments and Toradol for her symptoms per herrequest. Patient normal kidney function last night. Anticipate if workup is negative can be discharged home. Differential includes is not limited to psychosomatic pain, malingering, ACS, uncontrolled diabetesmellitus, neuropathy pain, electrolyte abnormality, pneumothorax, pneumonia. Workup is normal. Patient is mildly hyperglycemic with a glucose of 318 howevershe does not have laboratory findings concerning for DKA or HHNK. Chest x-ray viewed by myself as well as radiology doesnot show any acute process. Patient is medically cleared to be discharged from the ER. She does request to speak with social work. They will try to get her to an outpatient detox facility. Patient is amenable to this. After discussion with case management patient now admits to being suicidal. Shestates she tried to jump off a bridge yesterday but did not tell anyone. [place] slip is filed and suicide precautions started. Patient ultimately is accepted at [facility] by Dr. Wilcox Lab Data Attestation: I reviewed the patient's lab results. Labs: Laboratory Results - last 24 hr 09/01/24 09/01/24 09/01/24 08:27 11:10 12:27 WBC 4.3 L RBC 4.80 Hgb 13.6 Hct 39.7 MCV 82.7 MCH 28.3 MCHC 34.3 RDW Std Deviation 39.3 RDW Coeff of Cele 13.1 Plt Count 186 MPV 9.8 Immature Gran % (Auto) 0.500 Neut % (Auto) 62.1 Lymph % (Auto) 22.1 Sibley % (Auto) 11.3 H Eos % (Auto) 3.5 Baso % (Auto) 0.5 Absolute Neuts (auto) 2.7 Absolute Lymphs (auto) 0.96 Nucleated RBC % 0 Sodium 141 Potassium 3.5 Chloride 106 Carbon Dioxide 24.7 Anion Gap 10 BUN 7 Creatinine 0.50 L Estim Creat Clear Calc 117.09 Est GFR (MDRD) Non-Af 112 BUN/Creatinine Ratio 13.7 Glucose 318 H Calcium 8.8 Total Creatine Kinase 31 Troponin T High Sens < 6 Troponin T Hi Sens 2 Hr < 6 Troponin T Hi Sens 4Hr < 6 Urine Opiates Screen U Buprenorphine Qual Ur Oxycodone Screen Urine Methadone Screen Urine Fentanyl Screen Ur Barbiturates Screen Ur Phencyclidine Scrn Ur Amphetamines Screen U Benzodiazepines Scrn Urine Cocaine Screen U Cannabinoids Screen 09/01/24 14:10 WBC RBC Hgb Hct MCV MCH MCHC RDW Std Deviation RDW Coeff of Cele Plt Count MPV Immature Gran % (Auto) Neut % (Auto) Lymph % (Auto) Sibley % (Auto) Eos % (Auto) Baso % (Auto) Absolute Neuts (auto) Absolute Lymphs (auto) Nucleated RBC % Sodium Potassium Chloride Carbon Dioxide Anion Gap BUN Creatinine Estim Creat Clear Calc Est GFR (MDRD) Non-Af BUN/Creatinine Ratio Glucose Calcium Total Creatine Kinase Troponin T High Sens Troponin T Hi Sens 2 Hr Troponin T Hi Sens 4Hr Urine Opiates Screen NEGATIVE U Buprenorphine Qual NEGATIVE Ur Oxycodone Screen NEGATIVE Urine Methadone Screen NEGATIVE Urine Fentanyl Screen NEGATIVE Ur Barbiturates Screen NEGATIVE Ur Phencyclidine Scrn NEGATIVE Ur Amphetamines Screen PRESUMPTIVE POSITIVE U Benzodiazepines Scrn NEGATIVE Urine Cocaine Screen PRESUMPTIVE POSITIVE U Cannabinoids Screen NEGATIVE Radiography Chest X-Ray - ED: 2 View, Read by ED Physician, Read by Radiologist and No AcuteDisease Diagnostic Testing: Clinical Impression(s) from Imaging Studies Chest X-Ray 09/01/24 08:27 IMPRESSION: No acute process is identified in the chest. [facility] Rhythm Strip Rhythm Strip: Sinus Rhythm Rate: 70 Ectopy: None EKG Initial EKG: Attestation: I personally reviewed and interpreted this EKG as follows: Interpretation: Sinus Rhythm Comments: Normal sinus rhythm at a rate of 70 bpm Normal axis Normal intervals Normal ST segments Management Discussion w/another healthcare provider: fly worker/Case management Discharge Plan Triage Chief Complaint: Shortness of Breath ED Provider: Chetna Sorensen Dx/Rx/DC Orders Clinical Impression: Hyperglycemia, History of cocaine abuse, Insulin dependent diabetes mellitus, Weakness, History of fibromyalgia, Depression with suicidal ideation Prescriptions: No Action (DME) pen needle, diabetic 31 gauge x 1/4 needle See Rx Instructions .Route Qty: 100 0RF Rx Instructions: As directed cyclobenzaprine 10 mg tablet 10 mg PO TID PRN (Reason: muscle spasm) pregabalin [Lyrica] 50 mg capsule 50 mg PO BID insulin lispro 100 unit/mL insulin pen 1 sliding scale dose subcut ACHS Protocol: 5. Sliding Scale Insulin High Dosing Condition: 150-209 mg/dl = 3 units Condition: 210-259 mg/dl = 6 units Condition: 260-324 mg/dl = 9 units Condition: 325-374 mg/dl = 12 units Condition: 375-409 mg/dl = 14 units Condition: 410-449 mg/dl = 16 units Condition: Greater than 449 call physician Protocol Text: Suggested for: - Patients on Total Daily Insulin Dose of 81-120 units - Very insulin resistant patients HIGH DOSING ALGORITHM Patient Comments: PT TAKES 10 UNITS PLUS SLIDING SCALE DOSE. Rx Instructions: subcutaneously; insulin glargine [Lantus Solostar U-100 Insulin] 100 unit/mL (3 mL) insulin pen 40 unit subcut BIDCM (DME) blood-glucose meter Misc See Rx Instructions .Route Qty: 1 0RF Rx Instructions: As directed (DME) Autoject 2 Injection Device Insulin Pen See Rx Instructions .Route Qty: 1 0RF Rx Instructions: As directed doxepin 25 mg capsule 25 mg PO QHS 30 Days Qty: 30 0RF quetiapine 200 mg tablet 200 mg PO QHS 30 Days Qty: 30 0RF buspirone 10 MG tablet 10 mg PO TID 30 Days Qty: 90 0RF hydroxyzine pamoate [Vistaril] 25 mg capsule 50 mg PO TID 30 Days Qty: 180 0RF aripiprazole 5 mg tablet 5 mg PO DAILY 30 Days Qty: 30 0RF Primary Care Provider: Care Physician,No Primary Referrals: Care Physician,No Primary [Primary Care Provider] - Print Language: Australian Disposition Disposition: Psychiatric Hospital or Unit Discharge Location: [facility] What to do if you have Problems For any increased pain, shortness of breath, bleeding, nausea or vomiting, chestpain, or any unexpected problems, contact your Primary Care Provider. Call [facility] ([phone]) or report tothe closest Emergency Room. Call 911 if necessary. 09/01/24 1551 Cosigner Signature (if applicable): CC: No Primary Care Physician ~ Signed [facility]05-20-2025 Radiology Diagnostic study note [facility] Imaging Services [address] [place], [place] [address] Chest PA and Lateral MR#: [id number] Acct: [id number] Name: ANA CRISTINA THOMAS Rep #: [id number] : 1970 F 53 From: Augustus Zheng MD PCP: Care Physician,No Primary Status: REG ER Study:Chest PA and Lateral Date of Exam: 09/01/24 Exam# [id number] Ordering Dr: Demetra Sorensen DO PROCEDURE: CHEST PA AND LATERAL 09/01/2024 REASON FOR EXAM: CHEST PAIN TECHNIQUE: Frontal and lateral views of the chest. COMPARISON: August 29, 2024 FINDINGS: Heart size and mediastinal configuration are within normal limits. There is no focal infiltrate or consolidation. There is no pneumothorax or effusion. Aortic calcifications are noted. Surgical clips are present in the right upper quadrant. RAD/Chest PA and Lateral IMPRESSION: No acute process is identified in the chest. Reading Location: [facility] CC: Dr. Chetna Sorensen, DO; No Primary Care Physician ~ Data Integration Developer: Signed [facility]05-19-2025 Discharge summary [facility] Medical Records Department [address] [place] [address] Emergency Department Summary 08/31/24 MR#: [id number] Acct: [id number] Name: ANA CRISTINA THOMAS Rep #:[id number] : 1970 53 From: Nate Conrad MD PCP: Care Physician,No Primary Status :REG ER Location: ED HPI History of Present Illness Chief Complaint: General Illness Informant: patient Onset/Context/Timing Onset: Days Context: Gradual Onset Timing: Continuous Current Severity: Mild Maximum Severity: Mild Narrative Narrative: 53-year-old female history of diabetes, COPD, hypertension, bipolar, fibromyalgia and neuropathy. States she has not felt well over the last severaldays. Currently is homeless. She was with her ex who recently threw her out ofthe home that she was living in. She has been homeless the last several da ys. Says she has financial concerns. Was seen in the emergency department recently was written prescriptions for diabetes but she has not been able to pick those up yet. Denies any dysuria. Denies any vomiting or diarrhea. She does states she has chronic pain in both hands from neuropathy. That is not new. The otherday when she is in the emergency department they try to get a renal social worker consult but she left prior to that being obtained. Prior similar symptoms: Yes Recent Illness/Hospitalization: Yes [facility] Medical History Diabetic ulcer of foot associated with diabetes mellitus due to underlying condition, with bone involvement without evidence of necrosis Substance abuse Smoker MRSA (methicillin resistant staph aureus) culture positive Hearing loss, left Cancer Anxiety Depression Bipolar disorder GERD (gastroesophageal reflux disease) Cirrhosis Hepatitis Smoker On home oxygen therapy COPD (chronic obstructive pulmonary disease) Failure of outpatient treatment Abnormal EKG Preoperative cardiovascular examination Abdominal wall abscess Hypertension Neuropathy Diabetes Sarcoidosis Home Medications ?Medication ?Instructions ?Recorded ?Last Taken ?Type pen needle, diabetic 31 gauge x #100 ea 02/08/24 Unkno wn Rx 04/18 aripiprazole 5 mg tablet 5 mg PO DAILY antidepressant 30 02/29/24 Unknown Rx days #30 tabs buspirone 10 mg tablet 10 mg PO TID depression 30 d ays 02/29/24 Unknown Rx #90 tabs doxepin 25 mg capsule 25 mg PO QHS bipolar 30 days #30 02/29/24 Unknown Rx caps hydroxyzine pamoate 25 mg capsule 50 mg (2 x 25 mg) PO TID anxiety 02/29/24 Unknown Rx (Vistaril) 30 days #180 caps quetiapine 200 mg tablet 200 mg PO QHS bipolar 30 day s #30 02/29/24 Unknown Rx tabs blood-glucose meter #1 ea 08/29/24 Unknown Rx cyclobenzaprine 10 mg tablet 10 mg PO TID PRN muscle s pasm 08/29/24 Unknown History insulin admin supplies (Autoject 2 #1 ea 08/29/24 Unkn own Rx Injection Device subcutaneous insulin pen) insulin glargine 100 unit/mL (3 40 unit subcut BIDCM b lood sugar 08/29/24 Unknown History mL) subcutaneous pen (Lantus Solostar U-100 Insulin) insulin lispro 100 unit/mL 1 sliding scale dose subcut ACHS 08/29/24 Unknown History subcutaneous pen blood sugar pregabalin 50 mg capsule (Lyrica) 50 mg PO BID 5 Unknown History Allergy/AdvReac Type Severity Reaction Status Date / Time aspirin AdvReac Other Verified 08/29/24 12:08 hydromorphone (From Dilaudid) AdvReac Other Verified 08/29/24 12:08 pseudoephedrine HCl (From AdvReac Other Verified 08/29/24 12:08 Sudafed) Surgical History History of cholecystectomy Hx of brain surgery Hx of appendectomy Hx of section Hx of total adrenalectomy Social History household members: none housing: homeless Smoking Status: Current every day smoker tobacco type: cigarettes quit status: considering quitting alcohol intake: never substance use type: former substance user ROS ROS ED ROS Narrative Generalized malaise. Elevated blood sugar. Denies vomiting diarrhea or fever. No dysuria. No cough. Constitutional Constitutional ED: Denies chills or fever(s) Eyes Eyes: Denies blurry vision ENT ENT ED: Denies ear pain Cardiovascular Cardiovascular: Denies chest pain Respiratory/Chest Respiratory/Chest: Denies cough or dyspnea Gastrointestinal Gastrointestinal: Denies abdominal pain, constipation, diarrhea, melena, nausea or vomiting Genitourinary Genitourinary ED: Denies dysuria or hematuria Musculoskeletal Musculoskeletal: Denies arthralgias or back pain Integumentary Denies abscess or Abrasions Neurologic Neurologic: Denies headache(s) Psychiatric Psychiatric: Denies anxiety or depression Endocrine Endocrinology: Denies cold intolerance Hematologic/Lymphatic Hematologic/Lymphatic: Reports none Allergic/Immunologic Allergic/Immunologic ED: Denies mouth swelling, tongue swelling or urticaria EXAM Physical Exam Narrative Exam Narrative: 53-year-old female sitting upright in bed. Vital signs are stable afebrile. She does not look septic toxic or in distress. Pulse ox 97% on room air no hypoxia. H EENT exam pupils round react light. Moist mucous membranes. Neck nontender no JVD. No lymphadenopathy. Back nontender. Lungs clear to auscultation bilaterally. Heart regular rhythm rate about 105 no murmur. Chestwall ribs nontender. Abdomen soft nontender. Moving all 4 extremities. 5 out of 5 orthopedic nurse practitioner strength. Equal symmetrical radial pulses. No swelling or redness. Normal dorsi plantarflexion. Calves are nontender without edema or cords. Neurologically she is awake and alert. Answering questions following commands. Benign exam. Const Vital Signs: 08/31/24 16:22 08/31/24 16:25 08/31/24 18:20 Temperature 97.8 F Temperature Source Oral Pulse Rate 108 H 76 Respiratory Rate 16 19 H Respiratory Effort Normal Respiratory Pattern Normal Blood Pressure 156/90 H 110/78 Blood Pressure Mean 112 88 Pulse Ox 97 99 Oxygen Delivery Method Room Air Room Air 08/31/24 19:39 08/31/24 21:00 Temperature Temperature Source Pulse Rate 85 79 Respiratory Rate 16 18 Respiratory Effort Respiratory Pattern Blood Pressure 134/80 H 128/60 H Blood Pressure Mean 98 82 Pulse Ox 99 96 Oxygen Delivery Method Room Air Room Air Positive well nourished and well developed; Negative for cachectic, contracturesor unkempt General Appearance ED: well developed and NAD; Negative for unkempt, cachectic, contractures, cyanotic, diaphoretic or pallor Nutritional Appearance: Negative for cachectic HEENT Reports moist mucous membranes Negative for trauma or tenderness Eyes EOMs intact bilaterally General Eye ED: Negative for pale conjunctiva or scleral icterus Neck no lymphadenopathy, supple and no JVD General: Negative for tenderness Chest Wall inspection of chest normal and palpation of chest normal Resp normal respiratory effort and clear to auscultation bilaterally Effort and Inspection: Negative for retractions or pain with movement Auscultation: Negative for rales, rhonchi, wheezes or diminished lung sounds Cardio regular rhythm, S1 normal heart sound, S2 normal heart sound and no murmurs; Negative for regular rate Rate: tachycardic GI normal to inspection, nondistended, normoactive bowel sounds, non-tender, non- distended and no masses Auscultation: normoactive bowel sounds Palpation: soft; Negative for tender, guarding or rebound tenderness present Back/Spine no CVA tenderness General Back: Negative for CVA tenderness Cervical Spine: Negative for cervical spine tenderness Thoracic Spine / Upper Back: Negative for thoracic spinal tenderness or paraspinal muscle tenderness Lumbar Spine / Lower Back: Negative for lumbar spinal tenderness Extremity normal to inspection General Extremety ED: Negative for edema or tenderness General Extremity: Negative for edema Neuro oriented x3, CN's II-XII intact bilaterally and No no sensory deficits noted Neuro Narrative: Neuropathy both hands. Sensorium / Orientation: alert; Negative for orientation impaired, lethargic or stuporous Motor Exam: strength 5/5 throughout Psych mental status grossly normal Appearance: Negative for unkempt Attitude: No agitated Mood & Affect: Negative for depressed, anxious or tearful Skin no rashes or lesions noted, no wounds and skin turgor normal General Skin Exam: elasticity normal; Negative for jaundice or pallor Lesions: No lesion noted Rashes: No rashes noted Trauma: Negative for abrasion Wounds: Negative for wounds noted MDM MDM MDM Narrative Medical decision making narrative: 53-year-old diabetic bipolar patient currently homeless. Having general malaise. Exam is benign. She was seen 2 days ago had unremarkable labs. Will get screening labs and a urinalysis. She will be evaluated by social welfare research worker. Repeat exam patient is doing well at 8:15 PM. fly worker spoke to her. Trying to get her into a outpatient rehab facility does methamphetamines. If they are unable to do that she does not meet criteria for admission here. Also the social workers tried multiple homeless shelters and they are all full at this time. She will be given Humalog subcu 10 units and have her blood sugar rechecked in an hour. Again I asked her if she is having no urinary symptoms. A culture will be sent I would not treat at this time. fly worker cannot get the patient in any type of alf or detox facility tonight. She will be discharged to home. Outpatient follow-up. Patient is currently resting comfortably at 915. The recheck of her blood sugar prior to discharge. History & Record Review Discussion w/independent historian: Patient Additional record(s) reviewed:: Prior inpatient record, Prior outpatient record,Prior ED visit and Prior labs Lab Data Attestation: I reviewed the patient's lab results. Lab results narrative: CBC shows a white count of 5. H&H 14 and 42. Platelets 211. Electrolytes show sodium 138. Potassium slightly low at 3.2. Gap 12. BUN is 7creatinine 0.5. Glucose 333. Beta Droxia butyric acid is normal at 0.6. Urinalysis shows no nitrites. 10-25 red cells. 10-25 white cells. 1+ bacteria. She is not having any urinary symptoms. Urine culture will be sent. Labs: Laboratory Results - last 24 hr 08/31/24 08/31/24 16:55 17:06 WBC 5.2 RBC 5.15 Hgb 14.5 Hct 42.4 MCV 82.3 MCH 28.2 MCHC 34.2 RDW Std Deviation 38.5 RDW Coeff of Cele 13.0 Plt Count 211 MPV 9.9 Immature Gran % (Auto) 0.400 Neut % (Auto) 63.3 Lymph % (Auto) 24.2 Sibley % (Auto) 8.6 Eos % (Auto) 2.7 Baso % (Auto) 0.8 Absolute Neuts (auto) 3.3 Absolute Lymphs (auto) 1.26 Nucleated RBC % 0 Sodium 138 Potassium 3.2 L Chloride 101 Carbon Dioxide 24.8 Anion Gap 12 BUN 7 Creatinine 0.52 L Estim Creat Clear Calc 112.58 Est GFR (MDRD) Non-Af 111 BUN/Creatinine Ratio 14.3 Glucose 333 H Calcium 9.0 b-Hydroxybutyric mmol/L 0.6 Urine Color Yellow Urine Clarity Cloudy Urine pH 6.0 Ur Specific Smoot 1.015 Urine Protein 15 H Urine Glucose (UA) 1000 H Urine Ketones 15 H Urine Occult Blood 10 H Urine Nitrite Negative Urine Bilirubin Negative Urine Urobilinogen 1 H Ur Leukocyte Esterase 100 H Urine RBC 10-25 SEEN Urine WBC 10-25 SEEN Ur Squamous Epith Cells 0 SEEN Urine Bacteria 1+ Urine Mucus 0 SEEN Rhythm Strip Rhythm Strip: Sinus Rhythm Rate: 90 Ectopy: None EKG Initial EKG: Attestation: I personally reviewed and interpreted this EKG as follows: Interpretation: Sinus Rhythm and No Acute Injury Pattern Comments: Normal sinus rhythm rate of 90 no acute signs of FL or ischemia. Discharge Plan Triage Chief Complaint: General Illness ED Provider: Nate Conrad Dx/Rx/DC Orders Clinical Impression: Hyperglycemia due to diabetes mellitus, History of homeless, History of bipolardisorder, History offibromyalgia Instructions: ED Diabetic Hyperglycemia Prescriptions: No Action (DME) pen needle, diabetic 31 gauge x 1/4 needle See Rx Instructions .Route Qty: 100 0RF Rx Instructions: As directed cyclobenzaprine 10 mg tablet 10 mg PO TID PRN (Reason: muscle spasm) pregabalin [Lyrica] 50 mg capsule 50 mg PO BID insulin lispro 100 unit/mL insulin pen 1 sliding scale dose subcut ACHS Protocol: 5. Sliding Scale Insulin High Dosing Condition: 150-209 mg/dl = 3 units Condition: 210-259 mg/dl = 6 units Condition: 260-324 mg/dl = 9 units Condition: 325-374 mg/dl = 12 units Condition: 375-409 mg/dl = 14 units Condition: 410-449 mg/dl = 16 units Condition: Greater than 449 call physician Protocol Text: Suggested for: - Patients on Total Daily Insulin Dose of 81-120 units - Very insulin resistant patients HIGH DOSING ALGORITHM Patient Comments: PT TAKES 10 UNITS PLUS SLIDING SCALE DOSE. Rx Instructions: subcutaneously; insulin glargine [Lantus Solostar U-100 Insulin] 100 unit/mL (3 mL) insulin pen 40 unit subcut BIDCM (DME) blood-glucose meter Misc See Rx Instructions .Route Qty: 1 0RF Rx Instructions: As directed (DME) Autoject 2 Injection Device Insulin Pen See Rx Instructions .Route Qty: 1 0RF Rx Instructions: As directed doxepin 25 mg capsule 25 mg PO QHS 30 Days Qty: 30 0RF quetiapine 200 mg tablet 200 mg PO QHS 30 Days Qty: 30 0RF buspirone 10 MG tablet 10 mg PO TID 30 Days Qty: 90 0RF hydroxyzine pamoate [Vistaril] 25 mg capsule 50 mg PO TID 30 Days Qty: 180 0RF aripiprazole 5 mg tablet 5 mg PO DAILY 30 Days Qty: 30 0RF Primary Care Provider: Care Physician,No Primary Referrals: Care Physician,No Primary [Primary Care Provider] - India Ruiz, ARAC [Non-Staff] - As soon as possible Activity Restrictions/Additional Instructions: Watch your blood sugars closely. Call and follow-up with [facility] to get a local primary care physician. Print Language: Australian Disposition Disposition: Home, Self Care What to do if you have Problems For any increased pain, shortness of breath, bleeding, nausea or vomiting, chestpain, or any unexpected problems, contact your Primary Care Provider. Call [facility] ([phone]) or report tothe closest Emergency Room. Call 911 if necessary. 08/31/242114 Cosigner Signature (if applicable): CC: No Primary Care Physician ~ Signed [facility]05-19-2025 Discharge summary Author Nate Conrad [facility] Note Date/Time August 31, 2024 9:15p m [facility] Medical Records Department [address] [place] [address] Emergency Department Summary 08/31/24 MR#: [id number] Acct: [id number] Name: ANA CRISTINA THOMAS Rep #:[id number] : 1970 53 From: Nate Conrad MD PCP: Care Physician,No Primary Status :REG ER Location: ED HPI History of Present Illness Chief Complaint: General Illness Informant: patient Onset/Context/Timing Onset: Days Context: Gradual Onset Timing: Continuous Current Severity: Mild Maximum Severity: Mild Narrative Narrative: 53-year-old female history of diabetes, COPD, hypertension, bipolar, fibromyalgia and neuropathy. States she has not felt well over the last severaldays. Currently is homeless. She was with her ex who recently threw her out ofthe home that she was living in. She has been homeless the last several days. Says she has financial concerns. Was seen in the emergency department recently was written prescriptions for diabetes but she has not been able to pick those up yet. Denies any dysuria. Denies any vomiting or diarrhea. She does states she has chronic pain in both hands from neuropathy. That is not new. The otherday when she is in the emergency department they try to get a renal social worker consult but she left prior to that being obtained. Prior similar symptoms: Yes Recent Illness/Hospitalization: Yes [facility] Medical History Diabetic ulcer of foot associated with diabetes mellitus due to underlying condition, with bone involvement without evidence of necrosis Substance abuse Smoker MRSA (methicillin resistant staph aureus) culture positive Hearing loss, left Cancer Anxiety Depression Bipolar disorder GERD (gastroesophageal reflux disease) Cirrhosis Hepatitis Smoker On home oxygen therapy COPD (chronic obstructive pulmonary disease) Failure of outpatient treatment Abnormal EKG Preoperative cardiovascular examination Abdominal wall abscess Hypertension Neuropathy Diabetes Sarcoidosis Home Medications ?Medication ?Instructions ?Recorded ?Last Taken ?Type pen needle, diabetic 31 gauge x #100 ea 02/08/24 Unkno wn Rx 04/18 aripiprazole 5 mg tablet 5 mg PO DAILY antidepressant 30 02/29/24 Unknown Rx days #30 tabs buspirone 10 mg tablet 10 mg PO TID depression 30 d ays 02/29/24 Unknown Rx #90 tabs doxepin 25 mg capsule 25 mg PO QHS bipolar 30 days #30 02/29/24 Unknown Rx caps hydroxyzine pamoate 25 mg capsule 50 mg (2 x 25 mg) PO TID anxiety 02/29/24 Unknown Rx (Vistaril) 30 days #180 caps quetiapine 200 mg tablet 200 mg PO QHS bipolar 30 day s #30 02/29/24 Unknown Rx tabs blood-glucose meter #1 ea 08/29/24 Unknown Rx cyclobenzaprine 10 mg tablet 10 mg PO TID PRN muscle s pasm 08/29/24 Unknown History insulin admin supplies (Autoject 2 #1 ea 08/29/24 Unkn own Rx Injection Device subcutaneous insulin pen) insulin glargine 100 unit/mL (3 40 unit subcut BIDCM b lood sugar 08/29/24 Unknown History mL) subcutaneous pen (Lantus Solostar U-100 Insulin) insulin lispro 100 unit/mL 1 sliding scale dose subcut ACHS 08/29/24 Unknown History subcutaneous pen blood sugar pregabalin 50 mg capsule (Lyrica) 50 mg PO BID 5 Unknown History Allergy/AdvReac Type Severity Reaction Status Date / Time aspirin AdvReac Other Verified 08/29/24 12:08 hydromorphone (From Dilaudid) AdvReac Other Verified 08/29/24 12:08 pseudoephedrine HCl (From AdvReac Other Verified 08/29/24 12:08 Sudafed) Surgical History History of cholecystectomy Hx of brain surgery Hx of appendectomy Hx of section Hx of total adrenalectomy Social History household members: none housing: homeless Smoking Status: Current every day smoker tobacco type: cigarettes quit status: considering quitting alcohol intake: never substance use type: former substance user ROS ROS ED ROS Narrative Generalized malaise. Elevated blood sugar.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 09/08/2024 [facility] Source Comments (unrecognize d section and content) In the event this informatio n is protected by the Federal Confidentiality of Alcohol and Drug Abuse Patient Records regulations: The Federal rules restrict any use of the information to criminally investigate or prosecute any alcohol or drug abuse patient.[facility] the event this information is protected by the Federal Confidentiality of Alcohol and Drug Abuse Patient Records regulations: The Federal rules restrict any use of the information to criminally investigate or prosecute any alcohol or drug abuse patient.[facility] the event this information is protected by the Federal Confidentiality of Alcohol and Drug Abuse Patient Records regulations: The Federal rules restrict any use of the information to criminally investigate or prosecute any alcohol or drug abuse patient.[facility] the event this information is protected by the Federal Confidentiality of Alcohol and Drug Abuse Patient Records regulations: The Federal rules restrict any use of the information to criminally investigate or prosecute any alcohol or drug abuse patient.[facility] Center[facility] the event this information is protected by the Federal Confidentiality of Alcohol and Drug Abuse Patient Records regulations: The Federal rules restrict any use of the information to criminally investigate or prosecute any alcohol or drug abuse patient.[facility] Reason for Visit (unrecogniz ed section and content) Reason Onset Date Comments Medical Clearance 01/03/2024 Pt brought in by [facility] for medical clearance to go to [facility]. Reason Comments URI Congestion, body ach es, cough, sore throat, headaches, left ear pain x 5 days Reason Onset Date Comments [facility]PP Hepatology - Follow-up 03/19/2024 HCV+ lab note Reason Comments Hyperglycemia Pt blood sugars read ing over 500 for 2 weeks on home meter Generalized Body Aches Pt having body ac hes started today with chills Reason Comments Hyperglycemia Pt states BGL 572 at home- took 10 units insulin- pt states ongoing hyperglycemia x 1 month Ordered Prescriptions (unrec ognized section and content) Prescription Sig Dispensed Refills Start Date End Da te cefdinir (OMNICEF) 300 MG capsule Take 1 capsule by mouth 2 times daily for 7 days 14 capsule 03/24/2024 03/31/2024 Scheduled Active and Recently Administ ered Medications (unrecognized section and content) Medication Order 03/22/2024 03/23/2024 03/24/2024 cefdinir (OMNICEF) capsule 300 mg (COMPLETED) 300 mg, Oral, ONCE, 1 dose, On Sat03/24/24 at 2215, Antimicrobial Indications: Urinary Tract Infection 2215 (Given - Provid er: Criselda Olvera RN) insulin regular (HumuLIN R;NovoLIN R) injection 10 Units (COMPLETED) 10 Units, SubCUTAneous, ONCE, 1 dose, On Sat03/24/24 at 2200 220 (Given - Provid er: Criselda Olvera RN) ketorolac (TORADOL) injection 15 mg (COMPLETED) 15 mg, IntraVENous, ONCE, 1 dose, On Sat03/24/24 at 2200, Patient tolerates. 2208 (Given - Provid er: Criselda Olvera RN) sodium chloride 0.9 % bolus 1,000 mL (COMPLETED) 1,000 mL, IntraVENous, at 1,935.5 mL/hr, Administer over 31 Minutes, ONCE, On Sat03/24/24 at 1900, For 1 dose 2002 (New Bag - Prov ider: Criselda Olvera RN)2033 (Stopped - Provider: Criselda Olvera RN) Scheduled Medication Order 04/08/2024 04/09/2024 04/10/2024 fluconazole (DIFLUCAN) tablet 200 mg (COMPLETED) 200 mg, Oral, ONCE, 1 dose, On Sat04/10/24 at 1800, Antimicrobial Indications: Skin and Soft Tissue Infection 1809 (Given - Provid er: Marilee Hopkins RN) sodium chloride 0.9 % bolus 1,000 mL (COMPLETED) 1,000 mL, IntraVENous, at 1,000 mL/hr, Administer over 1 Hours, ONCE, On Sat04/10/24 at 1430, For 1 dose, May administer over 30 minutes if well tolerated. 143 (New Bag - Prov ider: Sylvester King RN)170 (Stopped - Provider: Jasiel Tapia LPN) FOR RECORDS PERTAINING TO PATIENTS WHO ARE OR HAVE BEEN ENROLLED IN A CHEMICAL DEPENDENCY/SUBSTANCEABUSE PROGRAM, SOME INFORMATION MAY BE OMITTED. This clinical summary was aggregated from multiple sources. Caution should be exercised in using it in the provision of clinical care. This summary normalizes information from multiple sources, and as a consequence, information in this document may materially change the coding, format and clinical context of patient data. In addition, data may be omitted in some cases. CLINICAL DECISIONS SHOULD BE BASED ON THE PRIMARY CLINICAL RECORDS. [employer] [facility]. provides no warranty or guarantee of the accuracy or completeness of information in this document.
--- NOTE | 2024-10-01 22:11 | EDS_ITS ---
HPI History of Present Illness Chief Complaint: Headache Informant: patient Narrative Narrative: Patient is a 53-year-old female with past medical history of hypertension type 2 diabetes that is insulin-dependent as well as bipolar disorder. She states she has had a lump to the back of her neck for approximately 2 weeks. She states the area she feels is becoming more swollen and painful. She states that the area is tender to touch and is causing pain to radiate up into her head and cause a headache. She denies any fevers or chills or injury. She states because of her diabetes she does have a history of abscess. She is concerned for that and with this presents for evaluation. [facility] Medical History Diabetic ulcer of foot associated with diabetes mellitus due to underlying condition, with bone involvement without evidence of necrosis Substance abuse Smoker MRSA (methicillin resistant staph aureus) culture positive Hearing loss, left Cancer Anxiety Depression Bipolar disorder GERD (gastroesophageal reflux disease) Cirrhosis Hepatitis Smoker On home oxygen therapy COPD (chronic obstructive pulmonary disease) Failure of outpatient treatment Abnormal EKG Preoperative cardiovascular examination Abdominal wall abscess Hypertension Neuropathy Diabetes Sarcoidosis Home Medications ?Medication ?Instructions ?Recorded ?Last Taken ?Type pen needle, diabetic 31 gauge x #100 ea 02/08/24 Unkno wn Rx 1/ aripiprazole 5 mg tablet 5 mg PO DAILY antidepressant 30 02/29/24 Unknown Rx days #30 tabs buspirone 10 mg tablet 10 mg PO TID depression 30 d ays 02/29/24 Unknown Rx #90 tabs doxepin 25 mg capsule 25 mg PO QHS bipolar 30 days #30 02/29/24 Unknown Rx caps hydroxyzine pamoate 25 mg capsule 50 mg (2 x 25 mg) PO TID anxiety 02/29/24 Unknown Rx (Vistaril) 30 days #180 caps quetiapine 200 mg tablet 200 mg PO QHS bipolar 30 day s #30 02/29/24 Unknown Rx tabs blood-glucose meter #1 ea 08/29/24 Unknown Rx cyclobenzaprine 10 mg tablet 10 mg PO TID PRN muscle s pasm 08/29/24 Unknown History insulin admin supplies (Autoject 2 #1 ea 08/29/24 Unkn own Rx Injection Device subcutaneous insulin pen) insulin glargine 100 unit/mL (3 40 unit subcut BIDCM b lood sugar 08/29/24 Unk nown History mL) subcutaneous pen (Lantus Solostar U-100 Insulin) insulin lispro 100 unit/mL 1 sliding scale dose subcut ACHS 08/29/24 Unknown History subcutaneous pen blood sugar pregabalin 50 mg capsule (Lyrica) 50 mg PO BID 5 Unknown History amoxicillin 875 mg-potassium 1 tab PO BID 7 days #14 t abs 10/01/24 Unknown Rx clavulanate 125 mg tablet oxycodone-acetaminophen 5 mg-325 1 tab PO Q6H PRN pain 3 days #12 10/01/24 Unknown Rx mg tablet (Percocet) tabs Allergy/AdvReac Type Severity Reaction Status Date / Time aspirin AdvReac Other Verified 10/01/24 20:48 hydromorphone (From Dilaudid) AdvReac Other Verified 10/01/24 20:48 pseudoephedrine HCl (From AdvReac Other Verified 10/01/24 20:48 Sudafed) Family History no significant family his Surgical History History of cholecystectomy Hx of brain surgery Hx of appendectomy Hx of section Hx of total adrenalectomy Social History household members: none housing: homeless Smoking Status: Former smoker quit status: considering quitting alcohol intake: never substance use type: former substance user ROS ROS ED Constitutional Constitutional ED: Denies chills or fever(s) Eyes Eyes: Reports other Details: Negative photophobia ; Denies change in vision ENT ENT ED: Denies sore throat Cardiovascular Cardiovascular: Denies chest pain Respiratory/Chest Respiratory/Chest: Denies cough or dyspnea Gastrointestinal Gastrointestinal: Denies abdominal pain, diarrhea, nausea or vomiting Musculoskeletal Musculoskeletal: Reports neck pain Integumentary Reports other Details: Positive lesion to the midline of the posterior neck Neurologic Neurologic: Reports headache(s); Denies paresthesias or weakness Hematologic/Lymphatic Hematologic/Lymphatic: Denies easy bleeding or easy bruising EXAM Physical Exam Const Vital Signs: 10/01/24 20:48 Temperature 98 F Temperature Source Temporal Pulse Rate 110 H Respiratory Rate 16 Blood Pressure 128/105 H Blood Pressure Mean 112 Pulse Ox 98 Oxygen Delivery Method Room Air Positive well nourished and well developed General Appearance ED: well developed HEENT HEENT Narrative: Normocephalic atraumatic Eyes PERRL and EOMs intact bilaterally Neck supple Neck Narrative: In the center of the posterior neck near the attachment to the occipital portion of the scalp patient has a 1 x 2 cm area of induration that is well-demarcated without overlying erythema or warmth. No discharge or streaking. No surrounding cellulitis. The area is painful to touch however No nuchal rigidity or meningeal signs Resp normal respiratory effort and clear to auscultation bilaterally Cardio regular rate and regular rhythm Extremity normal to inspection Neuro oriented x3, CN's II-XII intact bilaterally and no sensory deficits noted Neuro Narrative: GCS of 15 Cranial nerves II through XII are grossly intact without focal neurologic deficit No pronator drift no dysmetria no truncal ataxia NIH stroke scale score of 0 Sensorium / Orientation: alert Motor Exam: strength 5/5 throughout Psych mental status grossly normal Skin Skin Narrative: Lesion to the posterior neck as documented above MDM MDM MDM Narrative Medical decision making narrative: Patient presenting to the ER afebrile and had no meningeal signs or ports or signs of trauma. Therefore at low concern for meningitis or subarachnoid or subdural hemorrhage as a cause of her symptoms. By exam she has a lesion to the posterior neck which has been present for roughly 2 weeks. There is no overlying erythema or warmth I feel this is more of a cystic structure than an abscess. I did elect to perform a needle aspiration of the area as documented below. This produced sebaceous material consistent with a sebaceous cyst. After aspiration was performed and the area is no longer swollen. At this time patient does not have signs of acute infection or meningitis I have low concern for underlying neurologic event or subarachnoid or subdural hemorrhage and therefore she is safe for discharge and can follow-up as an outpatient Patient had the posterior neck cleaned with chlorhexidine. It was anesthetized with 6 mL of 2% lidocaine with epinephrine and local fashion. An 18-gauge needle was used to aspirate the center of the area of induration. There was a few cc of sebaceous material aspirated. After aspiration there is no further swelling noted. Patient tolerated procedure well without complication. History & Record Review Discussion w/independent historian: Patient Discharge Plan Triage Chief Complaint: Headache ED Provider: Chavo Toussaint Dx/Rx/DC Orders Clinical Impression: Sebaceous cyst, Insulin dependent diabetes mellitus, Bipolar disorder, Hypertension Instructions: ED Epidermoid Cyst, No Infection Prescriptions: New oxycodone-acetaminophen [Percocet] 5-325 mg tablet 1 tab PO Q6H PRN (Reason: pain) 3 Days Qty: 12 0RF amoxicillin-pot clavulanate 875-125 mg tablet 1 tab PO BID 7 Days Qty: 14 0RF No Action (DME) pen needle, diabetic 31 gauge x 1/4 needle See Rx Instructions .Route Qty: 100 0RF Rx Instructions: As directed cyclobenzaprine 10 mg tablet 10 mg PO TID PRN (Reason: muscle spasm) pregabalin [Lyrica] 50 mg capsule 50 mg PO BID insulin lispro 100 unit/mL insulin pen 1 sliding scale dose subcut ACHS Protocol: 5. Sliding Scale Insulin High Dosing Condition: 150-209 mg/dl = 3 units Condition: 210-259 mg/dl = 6 units Condition: 260-324 mg/dl = 9 units Condition: 325-374 mg/dl = 12 units Condition: 375-409 mg/dl = 14 units Condition: 410-449 mg/dl = 16 units Condition: Greater than 449 call physician Protocol Text: Suggested for: - Patients on Total Daily Insulin Dose of 81-120 units - Very insulin resistant patients HIGH DOSING ALGORITHM Patient Comments: PT TAKES 10 UNITS PLUS SLIDING SCALE DOSE. Rx Instructions: subcutaneously; insulin glargine [Lantus Solostar U-100 Insulin] 100 unit/mL (3 mL) insulin pen 40 unit subcut BIDCM (DME) blood-glucose meter Misc See Rx Instructions .Route Qty: 1 0RF Rx Instructions: As directed (DME) Autoject 2 Injection Device Insulin Pen See Rx Instructions .Route Qty: 1 0RF Rx Instructions: As directed doxepin 25 mg capsule 25 mg PO QHS 30 Days Qty: 30 0RF quetiapine 200 mg tablet 200 mg PO QHS 30 Days Qty: 30 0RF buspirone 10 MG tablet 10 mg PO TID 30 Days Qty: 90 0RF hydroxyzine pamoate [Vistaril] 25 mg capsule 50 mg PO TID 30 Days Qty: 180 0RF aripiprazole 5 mg tablet 5 mg PO DAILY 30 Days Qty: 30 0RF Primary Care Provider: Care Physician,No Primary Referrals: Mike Wray MD [Med Staff - Active Staff] - Care Physician,No Primary [Primary Care Provider] - Activity Restrictions/Additional Instructions: Your exam indicates you had a sebaceous cyst on the back of your neck causing your symptoms without obvious signs of infection. Based on your diabetic status there is concern it could become infected over the next few days. If this occurs please fill the prescribed Augmentin/antibiotic that was given to you in the ER. Otherwise follow-up with your family doctor and/or Dr. Wray for reevaluation and return to the ER should you have any further concerns Print Language: Romanian Disposition Disposition: Home, Self Care
[2024-10-01] MEDS: Ketorolac 30 MG/ML Syringe IM (22:17)
[2024-10-01] MEDS: Lidocaine 2% /Epi 1:100 (20ml) 20 ML VIAL INFILT (22:17)
[2024-10-01] MEDS: oxyCODONE 5 MG Tablet PO (22:55)
[2024-10-01 22:57] VITALS: BP 119/84; PULSE 86; RESP 16; TEMP 36.6; O2SAT 96
== END 2024-10-01 22:58 | disposition home or self-care (01) ==
PROVIDERS: Emergency Provider Emergency Medicine; Visit Provider Emergency Medicine
DX: L72.3 Sebaceous cyst (principal); F31.9 Bipolar disorder, unspecified; J44.9 Chronic obstructive pulmonary disease, unspecified; E11.40 Type 2 diabetes mellitus with diabetic neuropathy, unspecified; I10 Essential (primary) hypertension; Z87.891 Personal history of nicotine dependence; K21.9 Gastro-esophageal reflux disease without esophagitis
CPT/HCPCS: 10160; 96372; 99282

== ENCOUNTER 2024-10-05 23:31 | Emergency (ER) | payer MEDICARE, MEDICAID, SELFPAY ==
[2024-10-05 23:31] VITALS: BP 170/83; PULSE 86; RESP 16; TEMP 36.6; O2SAT 97; BMI 24.1
--- NOTE | 2024-10-05 23:39 | EKG12_ITS ---
Test Reason : DYSRHYTHMIA Blood Pressure : */* mmHG Vent. Rate : 85 BPM Atrial Rate : 85 BPM P-R Int : 162 ms QRS Dur : 78 ms QT Int : 358 ms P-R-T Axes : 31 -18 -5 degrees QTcB Int : 426 ms Normal sinus rhythm Inferior infarct (cited on or before 31-Aug-2024) Possible Anterior infarct , age undetermined Abnormal ECG Confirmed by NICKOLAS SANDERS MD ([id number]), business editor MANDEEP WOODY ([id number]) on 10/06/2024 11:27:59 AM Referred By: Confirmed By: NICKOLAS SANDERS MD
--- NOTE | 2024-10-06 01:18 | EX.ED.DYSGE1 ---
HPI History of Present Illness Chief Complaint: Chest Other Informant: patient Narrative Narrative: 54-year-old female presents saying her blood sugar was high at 515 at home prior to coming here. She feels poorly, and she has pain in her distal extremities x 4 although she admits that is chronic and not new. She is an insulin-dependent diabetic and admittedly has been out of her insulin for months. She also states she has not had a meter to check her insulin until today but feels like her blood sugar was high for at least the last few days has had polydipsia/polyuria not amount of time. She has a cough that is nonproductive, she denies any dyspnea. No fevers or chills that she knows of. She is asking for something for the pain in her arms and legs. She states she was diagnosed with peripheral neuropathy and that is what her pain is from. [facility] Medical History Diabetic ulcer of foot associated with diabetes mellitus due to underlying condition, with bone involvement without evidence of necrosis Substance abuse Smoker MRSA (methicillin resistant staph aureus) culture positive Hearing loss, left Cancer Anxiety Depression Bipolar disorder GERD (gastroesophageal reflux disease) Cirrhosis Hepatitis Smoker On home oxygen therapy COPD (chronic obstructive pulmonary disease) Failure of outpatient treatment Abnormal EKG Preoperative cardiovascular examination Abdominal wall abscess Hypertension Neuropathy Diabetes Sarcoidosis Home Medications ?Medication ?Instructions ?Recorded ?Last Taken ?Type pen needle, diabetic 31 gauge x #100 ea 02/08/24 Unknown Rx 1/4 aripiprazole 5 mg tablet 5 mg PO DAILY antidepressant 30 02/29/24 Unknown Rx days #30 tabs buspirone 10 mg tablet 10 mg PO TID depression 30 days 02/29/24 Unknown Rx #90 tabs doxepin 25 mg capsule 25 mg PO QHS bipolar 30 days #30 02/29/24 Unknown Rx caps hydroxyzine pamoate 25 mg capsule 50 mg (2 x 25 mg) PO TID anxiety 02/29/24 Unknown Rx (Vistaril) 30 days #180 caps quetiapine 200 mg tablet 200 mg PO QHS bipolar 30 days #30 02/29/24 Unknown Rx tabs blood-glucose meter #1 ea 08/29/24 Unknown Rx cyclobenzaprine 10 mg tablet 10 mg PO TID PRN muscle spasm 08/29/24 Unknown History insulin admin supplies (Autoject 2 #1 ea 08/29/24 Unknown Rx Injection Device subcutaneous insulin pen) insulin glargine 100 unit/mL (3 40 unit subcut BIDCM blood sugar 08/29/24 Unknown History mL) subcutaneous pen (Lantus Solostar U-100 Insulin) insulin lispro 100 unit/mL 1 sliding scale dose subcut ACHS 08/29/24 Unknown History subcutaneous pen blood sugar pregabalin 50 mg capsule (Lyrica) 50 mg PO BID 08/29/24 Unknown History oxycodone-acetaminophen 5 mg-325 1 tab PO Q6H PRN pain 3 days #12 10/01/24 Unknown Rx mg tablet (Percocet) tabs ondansetron 8 mg disintegrating 8 mg PO Q8H PRN nausea and 10/06/24 Unknown Rx tablet vomiting #12 tabs sulfamethoxazole 800 1 tab PO BID #6 TABLETS 10/06/24 Unknown Rx mg-trimethoprim 160 mg tablet Allergy/AdvReac Type Severity Reaction Status Date / Time aspirin AdvReac Other Verified 10/05/24 23:32 hydromorphone (From Dilaudid) AdvReac Other Verified 10/05/24 23:32 pseudoephedrine HCl (From AdvReac Other Verified 10/05/24 23:32 Sudafed) Surgical History History of cholecystectomy Hx of brain surgery Hx of appendectomy Hx of section Hx of total adrenalectomy Social History household members: none housing: homeless Smoking Status: Current every day smoker tobacco type: cigarettes quit status: considering quitting alcohol intake: never substance use type: former substance user ROS ROS ED Constitutional Constitutional ED: Reports malaise; Denies chills or fever(s) Eyes Eyes: Denies change in vision or diplopia ENT ENT ED: Denies rhinorrhea or sore throat Cardiovascular Cardiovascular: Denies chest pain or palpitations Respiratory/Chest Respiratory/Chest: Reports cough; Denies dyspnea or sputum Gastrointestinal Gastrointestinal: Reports nausea; Denies abdominal pain, diarrhea or vomiting Genitourinary Genitourinary ED: Reports urinary frequency; Denies dysuria or hematuria Musculoskeletal Musculoskeletal: Reports arthralgias and extremity pain; Denies back pain or neck pain Integumentary Denies abscess or rash Neurologic Neurologic: Denies headache(s), paresthesias or weakness Psychiatric Psychiatric: Denies anxiety or suicidal thoughts Endocrine Endocrinology: Reports polydipsia and polyuria EXAM Physical Exam Const Vital Signs: 10/05/24 23:31 10/06/24 01:31 10/06/24 03:00 Temperature 97.8 F Temperature Source Oral Pulse Rate 86 66 73 Respiratory Rate 16 16 16 Blood Pressure 170/83 H 162/74 H 151/69 H Blood Pressure Mean 112 103 96 Pulse Ox 97 94 95 Oxygen Delivery Method Room Air Room Air 10/06/24 05:00 Temperature Temperature Source Pulse Rate 70 Respiratory Rate 12 Blood Pressure 156/92 H Blood Pressure Mean 113 Pulse Ox 96 Oxygen Delivery Method Room Air Positive well nourished and well developed General Appearance ED: well developed and NAD HEENT Reports moist mucous membranes normocephalic and atraumatic Eyes PERRL and EOMs intact bilaterally Neck full ROM and supple Resp normal respiratory effort and clear to auscultation bilaterally Cardio regular rate, regular rhythm and no murmurs Rate: Negative for tachycardic GI non-tender and non-distended Auscultation: normoactive bowel sounds Palpation: soft Back/Spine no CVA tenderness General Back: other FROM Extremity normal to inspection General Extremety ED: Negative for edema, pulses abnormal or tenderness General Extremity: Negative for edema or pulses abnormal Neuro oriented x3, CN's II-XII intact bilaterally and no sensory deficits noted Sensorium / Orientation: awake and alert Motor Exam: strength 5/5 throughout Psych Mood & Affect: anxious Skin no rashes or lesions noted and no wounds MDM MDM MDM Narrative Medical decision making narrative: Patient was given a couple doses of IV insulin, and we ended up getting her blood sugar down to the 260 range. I reviewed labs, which are inconsistent with DKA. Her urinalysis shows some mild pyuria but no other significant indicators of infection, and she has no urinary symptoms other than urinary frequency. There is 1+ bacteria and 25 leukocyte esterase, so I am going to treat her with a short course of Bactrim which may or may not be causing her hyperglycemia right now, although it is probably more related to the fact that she has not been taking her insulin. Performed an EKG which is normal and a chest x-ray which is normal on my interpretation, 2 views with no pneumonia radiology in agreement. Patient has symptoms of peripheral neuropathy, her pain she admits is chronic. She is wanting something for pain. I gave her Toradol, she wanted something more so I started her on gabapentin, giving her a dose here. It appears that she is supposed to be on Lyrica but again does not have any of her medications. She states that all of her prescriptions [place] [facility] [place] [facility] [place] but she is here now and needs to get them all transferred. I advised her to go to the local [facility] to see if they can help her with this. I am giving her a prescription for some nausea medication as well but I think she is stable to go home. She is asking for a local doctor, she is referred to the next doctor on the unassigned list, Dr. Rodriguez Lab Data Attestation: I reviewed the patient's lab results. Labs: Laboratory Results - last 24 hr 10/06/24 10/06/24 10/06/24 01:34 01:43 03:42 WBC 4.8 RBC 4.90 Hgb 13.9 Hct 40.2 MCV 82.0 MCH 28.4 MCHC 34.6 RDW Std Deviation 37.7 RDW Coeff of Cele 12.6 Plt Count 129 L MPV 10.6 Immature Gran % (Auto) 0.600 Neut % (Auto) 56.2 Lymph % (Auto) 31.3 Gage % (Auto) 9.0 Eos % (Auto) 2.1 Baso % (Auto) 0.8 Absolute Neuts (auto) 2.7 Absolute Lymphs (auto) 1.50 Nucleated RBC % 0 Sodium 133 Potassium 3.8 Chloride 98 Carbon Dioxide 22.5 Anion Gap 13 BUN 18 Creatinine 0.64 L Estim Creat Clear Calc 90.42 Est GFR (MDRD) Non-Af 105 BUN/Creatinine Ratio 27.3 H Glucose 497 H* Calcium 9.1 b-Hydroxybutyric mmol/L 0.1 Urine Color Straw Urine Clarity Clear Urine pH 6.0 Ur Specific [place] 1.015 Urine Protein 15 H Urine Glucose (UA) 1000 H Urine Ketones Negative Urine Occult Blood 10 H Urine Nitrite Negative Urine Bilirubin Negative Urine Urobilinogen Normal Ur Leukocyte Esterase 25 H Urine RBC 0 SEEN Urine WBC 10-25 SEEN Ur Squamous Epith Cells 5-10 SEEN Urine Bacteria 1+ Urine Mucus 0 SEEN POC Glucose 442 H 315 H 10/06/24 04:41 WBC RBC Hgb Hct MCV MCH MCHC RDW Std Deviation RDW Coeff of Cele Plt Count MPV Immature Gran % (Auto) Neut % (Auto) Lymph % (Auto) Gage % (Auto) Eos % (Auto) Baso % (Auto) Absolute Neuts (auto) Absolute Lymphs (auto) Nucleated RBC % Sodium Potassium Chloride Carbon Dioxide Anion Gap BUN Creatinine Estim Creat Clear Calc Est GFR (MDRD) Non-Af BUN/Creatinine Ratio Glucose Calcium b-Hydroxybutyric mmol/L Urine Color Urine Clarity Urine pH Ur Specific [place] Urine Protein Urine Glucose (UA) Urine Ketones Urine Occult Blood Urine Nitrite Urine Bilirubin Urine Urobilinogen Ur Leukocyte Esterase Urine RBC Urine WBC Ur Squamous Epith Cells Urine Bacteria Urine Mucus POC Glucose 265 H ABG Data ABG results: ABG 10/06/24 01:40 Specimen Type CAMRYN Sample Site Not entered VBG pH 7.42 VBG pO2 45 H VBG HCO3 27 H VBG Total CO2 28 VBG O2 Sat (Calc) 82 H VBG Base Excess 3 POC Mix VBG pCO2 Pt Tmp 41.9 O2 Delivery Device Not entered Radiography Diagnostic Testing: Clinical Impression(s) from Imaging Studies Chest X-Ray 10/06/24 01:47 IMPRESSION: No evidence for acute abnormality. Reading Location: [place] [address] Rhythm Strip Rhythm Strip: Sinus Rhythm Rate: 85 Ectopy: None EKG Initial EKG: Attestation: I personally reviewed and interpreted this EKG as follows: Interpretation: Sinus Rhythm and No Acute Injury Pattern Comments: Nml axis & intervals; nml EKG Discharge Plan Triage Chief Complaint: Chest Other ED Provider: Pierce Singleton Dx/Rx/DC Orders Clinical Impression: Type 2 diabetes mellitus with hyperglycemia, Noncompliance with medications, UTI (urinary tract infection), Diabetic peripheral neuropathy Instructions: ED Diabetic Hyperglycemia Prescriptions: New sulfamethoxazole-trimethoprim 800-160 mg tablet 1 tab PO BID Qty: 6 0RF ondansetron 8 mg tablet,disintegrating 8 mg PO Q8H PRN (Reason: nausea and vomiting) Qty: 12 0RF No Action (DME) pen needle, diabetic 31 gauge x 1/4 needle See Rx Instructions .Route Qty: 100 0RF Rx Instructions: As directed cyclobenzaprine 10 mg tablet 10 mg PO TID PRN (Reason: muscle spasm) pregabalin [Lyrica] 50 mg capsule 50 mg PO BID insulin lispro 100 unit/mL insulin pen 1 sliding scale dose subcut ACHS Protocol: 5. Sliding Scale Insulin High Dosing Condition: 150-209 mg/dl = 3 units Condition: 210-259 mg/dl = 6 units Condition: 260-324 mg/dl = 9 units Condition: 325-374 mg/dl = 12 units Condition: 375-409 mg/dl = 14 units Condition: 410-449 mg/dl = 16 units Condition: Greater than 449 call physician Protocol Text: Suggested for: - Patients on Total Daily Insulin Dose of 81-120 units - Very insulin resistant patients HIGH DOSING ALGORITHM Patient Comments: PT TAKES 10 UNITS PLUS SLIDING SCALE DOSE. Rx Instructions: subcutaneously; insulin glargine [Lantus Solostar U-100 Insulin] 100 unit/mL (3 mL) insulin pen 40 unit subcut BIDCM (DME) blood-glucose meter Misc See Rx Instructions .Route Qty: 1 0RF Rx Instructions: As directed (DME) Autoject 2 Injection Device Insulin Pen See Rx Instructions .Route Qty: 1 0RF Rx Instructions: As directed oxycodone-acetaminophen [Percocet] 5-325 mg tablet 1 tab PO Q6H PRN (Reason: pain) 3 Days Qty: 12 0RF doxepin 25 mg capsule 25 mg PO QHS 30 Days Qty: 30 0RF quetiapine 200 mg tablet 200 mg PO QHS 30 Days Qty: 30 0RF buspirone 10 MG tablet 10 mg PO TID 30 Days Qty: 90 0RF hydroxyzine pamoate [Vistaril] 25 mg capsule 50 mg PO TID 30 Days Qty: 180 0RF aripiprazole 5 mg tablet 5 mg PO DAILY 30 Days Qty: 30 0RF Primary Care Provider: Care Physician,No Primary Referrals: Whitney Rodriguez MD [Med Staff - Fisheries Biologist] - As soon as possible Print Language: Citizen Of [place] Disposition Disposition: Home, Self Care
--- OUTSIDE RECORDS SUMMARY | 2024-10-06 01:27 | XMS RPT_ITS | CCD ---
Author Organization [facility] Care Team Providers Care Environmental Conservation Officer Name Role Phone PHYSICIAN, NOT RECORDED Primary Care Physician U GUILLERMINA Gar MD Attending Unavailable PHYSICIAN, NOT RECORDED Primary Care Unavaila ble Pcp DRIVE WORKER, No Primary Care Provider UnavailGUILLERMINA Avalos MD Attending Unavailable PHYSICIAN, NOT RECORDED Primary Care Unavaila ble Unavailable Primary Care Provider Unavailabl e ELOISE TERRAZAS Attending Unavailable Pcp DRIVE WORKER, No Primary Care Provider Unavailabl e [...] Unavailable MILLIE EVANS Attending Unavailabl e Pcp DRIVE WORKER, No Primary Care Provider Unavailabl e Satish [facility], Taylor A Unavailable Unavaila ble GALILEA SERRA Admitting Unavailable TRA PEREZ Attending Unavailable JOSE MIGUEL MARCUM Referring Unavailable Dr. Fely Bose MD Primary Care Provider [phone] Dr. Yonas Mccullough DO Referring Provider [phone] Dr. Yonas Mccullough DO Emergency Provider [phone] Dr. Vicente Mao DO Admit Provider Unavail able Dr. Vicente Mao DO Other Provider Unavail able Dr. Farhad Ma MD Attending Provider Dr. Farhad Ma MD Other Provider Dr. Teri Franklin MD Attending Provider Unavaila ble Provider, Ed Physician Attending Provider Unavai lable Provider, Ed Physician Emergency Provider Unavai lable Care Physician, No Primary Primary Care Provider Unavailable Nadine BAUMANN, Albert Attending Provider Nadine BAUMANN, Albert Emergency Provider Lisa LAURENT, Dr. Yanez Emergency Provider [phone] Dr. Fely Bose MD Primary Care Provider [place] BAUMANN, Dr. Sullivan Emergency Provider Dr. Chetna Sorensen DO Emergency Provider Lidya BAUMANN, Dr. Geiger Primary Care Provider Lisa LAURENT, Dr. Yanez Attending Provider [place] BAUMANN, Dr. Sullivan Attending Provider Franchesca LAURENT, Dr. Basilio Attending Provider [phone] Dr. Tony Emergency Provider YOHN, GREER Primary Care Unavailable China Kumar Attending Unavailable YOHN, GREER Primary Care Unavailable Pierce Singleton Attending Unavailable YOHN, GREER Primary Care Unavailable Provider, Ed Physician Attending Unavailab Сергей Bateman Consulting Unavailable YOHN, GREER Primary Care Unavailable Ismael Paula Admitting Unavailable Ismael Paula Attending Unavailable Сергей Simeon Consulting Unavailable YOHN, GREER Primary Care Unavailable Ismael Paula Attending Unavailable Ismael Paula Admitting Unavailable Ismael Paula Consulting Unavailable Charleen Badillo Attending UnavailСергей Austin Attending Unavailable Ismael Paula Referring Unavailable Vicente Mao Consulting Unavailable Vicente Mao Admitting Unavailable YOHN, GREER Primary Care Unavailable Dao Gagnon Attending Unavailable Sudhir Simpson Consulting Unavailable Dao Gagnon Consulting Unavailable Vicente Mao Attending Unavailable Fely Bose Primary Care Unavailable Farhad Ma Attending Unavailable Millie Barriga Consulting Unavailable Ingrid Brooks Consulting Unavailable Farhad Ma Consulting Unavailable YOHN, GREER Primary Care Unavailable Ismael Paula Admitting Unavailable Ismael Paula Consulting Unavailable Ismael Paula Attending Unavailable Vicente Mao Attending Unavailable Vicente Mao Consulting Unavailable Vicente Mao Admitting Unavailable GREER VALLE Primary Care Unavailable Sisi Gasca Consulting Unavailable Lidya, Fely Attending Unavailable Lidya, Fely Primary Care Unavailable Lidya, Fely Primary Care Unavailable Farhad Ma Attending Unavailable Vicente Mao Consulting Unavailable Vicente Mao Admitting Unavailable Sudhir Simpson Consulting Unavailable Dao Gagnon Consulting Unavailable Millie Barriga Consulting Unavailable Ingrid Brooks Consulting Unavailable Lidya, Fely Primary Care Unavailable Farhad Ma Referring Unavailable Adolfo Blanchard Attending Unavailable Herminia Rojas Admitting Unavailable Herminia Rojas Consulting Unavailable Manuel Burton Consulting Unavailable Noé Burks Consulting Unavailable Richard Shankar Consulting Unavailable Adolfo Blanchard Consulting Unavailable Vicente Cui Consulting Unavailable David Brenner Consulting Unavailable Zack Gutierrez Consulting Unavailable Geraldine Jara Consulting UnavailJose Sen Consulting Unavailable Jordy Workman Consulting Unavailable Chavo Mohr Consulting Unavailable Ivon Dominguez Consulting Unavailable Thi Dawson Consulting Unavailable James Lopez Consulting Unavailable Danie Franco Consulting Unavailable Gil Narayan Consulting Unavailable Stew Delgado Consulting Unavailable Eleanor Pereira Consulting Unavailable Liliana Morgan Consulting Unavailable Chris Palm Consulting Unavailable Richard Toscano Consulting Unavailable Oc Cameron Consulting Unavailable Kandace Arias Consulting Unavailable Vitor Leija Attending Unavailable Kandace Arias Attending Unavailable Care Physician, No Primary Primary Care Unava ilable Albert Mccoy Attending Unavailable Highland, Fely Primary Care Unavailable Teri Dias Attending Unavailable [place], Fely Primary Care Unavailable Farhad Ma Attending Unavailable Vicente Mao Admitting Unavailable Vicente Mao Consulting Unavailable Yonas Mccullough Referring Unavailable Care Physician, No Primary Primary Care Unava ilable Nate Conrad Attending Unavailable Care Physician, No Primary Primary Care Unava ilable Beau Gonzalez Attending Unavailable Kandace Arias Referring Unavailable Herminia Rojas Attending Unavailable Lidya, Fely Primary Care Unavailable Farhad Ma Attending Unavailable Vicente Mao Admitting Unavailable Vicente Mao Consulting Unavailable Yonas Mccullough Referring Unavailable Farhad Ma Consulting Unavailable Farhad Ma Consulting Unavailable Farhad Ma Attending Unavailable Lidya, Fely Primary Care Unavailable Charleen Badillo Attending UnavailChavo Cain Attending Unavailable Care Physician, No Primary Primary Care Unava ilable Chetna Sorensen Attending Unavailable Care Physician, No Primary Primary Care Unava ilable Provider, Ed Physician Attending Unavailab le Lidya, Fely Primary Care Unavailable Highland, Fely Primary Care Unavailable Teri Dias Attending Unavailable Sisi Gasca Attending Unavailable Vicente Mao Consulting Unavailable LEONARD, GREER Primary Care Unavailable Vicente Mao Admitting Unavailable Geno Ernst Consulting Unavailable Lidya, Fely Primary Care Unavailable Farhad Ma Attending Unavailable Herminia Rojas Admitting Unavailable Herminia Rojas Consulting Unavailable Kandace Arias Consulting Unavailable YOHN, GREER Primary Care Unavailable Joe Davidson Attending Unavailable Sisi Gasca Attending Unavailable Horn, Geno Consulting Unavailable Lidya, Fely Primary Care Unavailable Vicente Mao Referring Unavailable Alec Casas Attending Unavailable [place]land, Fely Primary Care Unavailable Sudhir Simpson Referring Unavailable Joe Burrell Attending Unavailable Allergies Allergy Classification Reported Allergen(s) Allergy Type Date of Onset Reaction(s) Facility (16 sources) Aspirin; Translations: [aspirin] Drug Allergy 09-26-19 17 Unknown, Other [facility] (12 sources) Pseudoephedrine; Translations: [PSEUDOEPHEDRINE HCL] Drug Allergy 11-19-19 07 Other [facility] (1 source) Acetaminophen / oxyCODONE; Translations: [acetaminophen-ox ycodone] Drug Allergy [facility] (1 source) Acetaminophen / Pseudoephedrine; Translations: [acetaminophen-ps eudoephedrine] Drug Allergy itching [facility] (6 sources) buPROPion; Translations: [BUPROPION] Drug Allergy 10-18-19 11 Other: See Comments [facility] Work Phone: (6 sources) HYDROmorphone; Translations: [HYDROMORPHONE (BULK)] Drug Allergy 10-30-19 13 Mental Status Change [facility] (6 sources) metFORMIN; Translations: [METFORMIN] Drug Allergy 11-18-19 19 Unknown [facility] (6 sources) Salicylate product; Translations: [SALICYLATES] Propensity to adverse reactions 12-30-19 05 [facility] (1 source) Acetaminophen / oxyCODONE; Translations: [OXYCODONE-ACETAM INOPHEN] Drug Allergy 10-30-19 13 [facility] (1 source) oxyCODONE; Translations: [OXYCODONE] Drug Allergy 05-04-19 11 [facility] (10 sources) HYDROmorphone; Translations: [HYDROMORPHONE] Drug Allergy 03-13-20 24 Unknown, Other (See Comments) [facility] Work Phone: (2 sources) Aluminum aspirin Drug Allergy 01-22-20 24 [facility] (1 source) Aspirin Drug Allergy 10-02-19 25 [facility] (1 source) HYDROmorphone Drug Allergy 10-02-19 25 [facility] Medications Current Medications Medication Drug Class(es) Dates Sig (Normalized) Sig (Original) acetaminophen 325 mg / oxyCODONE hydrochloride 5 mg oral tablet (6 sources) Opioid Agonist Start: 10-01-2024 take 1 tablet by mouth every six hours as needed for pain Oxycodone-Acetami nophen (Percocet) 5-325 mg tablet Active 1 {tbl} PO EVERY 6 HOURS as needed for pain 12 October 01, 2024 Start: 01-28-2013 End: 05-25-2013 Oxycodone-Acetaminophen 1 TA BLET tablet Discontinued 1 - 2 {tbl} PO EVERY 4 HOURS NEEDED as needed for Pain January 28, 2013 12:00am May 25, 2013 6:37am Start: 01-28-2013 End: 05-25-2013 take 1 tablet by mouth every four hours as needed Oxycodone-Acetaminophen Discontinued 1 - 2 TABLET PO EVERY 4 HOURS NEEDED January 28, 2013 12:00am May 25, 2013 6:37am amoxicillin 875 mg / clavulanate 125 mg oral tablet (6 sources) Penicillin-class Antibacterial Start: 10-01-2024 Amoxicillin-Pot Clavulanate 875-125 mg tablet Active 1 {tbl} PO TWICE A DAY 26 10October 01, 2024 12:00am Start: 03-13-2024 End: 03-20-2024 take 1 tablet [...] 2024 1:21pm ARIPiprazole 5 mg oral tablet (9 sources) Atypical Antipsychotic Start: 02-08-2024 End: 02-29-2024 take 1 tablet by mouth once daily Aripiprazole 5 mg tablet Active 5 mg PO DAILY February 29, 2024 11:23am benztropine mesylate 1 [...] Each 12/27/2023 01/26/2024 Active Blood-Glucose Meter misc (4 sources) Start: 08-29-2024 Blood-Glucose Meter misc Active 0 .Route 1 August 29, 2024 12:00am As directed brompheniramine maleate 0.4 mg/ml / dextromethorphan hydrobromide 2 mg/ml / pseudoephedrine hydrochloride 6 mg/ml oral solution (1 source) alpha-Adrenergic Agonist, Uncompetitive L-ausvav-Y-aspartat e Receptor Antagonist, Sigma-1 Agonist Start: 03-13-2024 take 5 mL by mouth every four hours for cough brompheniramine-p seudoeph-DM (Bromfed DM) 2-30-10 mg/5 mL syrup Indications: Acute maxillary sinusitis, recurrence not specified Take 5 mL by mouth every 4 hours if needed for allergies, congestion or cough. 120 mL 03/13/2024 Active busPIRone hydrochloride 10 mg oral tablet (13 sources) Start: 07-19-2013 End: 02-29-2024 take 1 tablet by mouth three times daily Buspirone 10 MG tablet Active 10 mg PO THREE TIMES A DAY February 29, 2024 11:23am busPIRone HCl (B USPAR PO) Take by mouth Active citalopram 20 mg oral tablet (1 source) Serotonin Reuptake Inhibitor Start: 02-02-2012 Celexa 20 mg oral tablet Dose : 20 mg = 1 tab(s), Oral, Daily, # 90 tab(s), 0 Refill(s) Start Date: 02/02/12 Status: Ordered cyclobenzaprine hydrochloride 10 mg oral tablet (13 sources) Muscle Relaxant Start: 08-29-2024 take 1 [...] Active doxepin hydrochloride 25 mg oral capsule (9 sources) Tricyclic Antidepressant Start: 02-08-2024 End: 02-29-2024 take 1 capsule by mouth at bedtime Doxepin 25 mg capsule Active 25 mg PO AT BEDTIME February 29, 2024 11:23am haloperidol 5 mg oral tablet (1 source) Typical Antipsychotic take 1 tablet by mouth every six hours as needed haloperidol (Haldol) 5 mg tablet Take 1 tablet (5 mg) by mouth every 6 hours if needed for agitation (AGGRESSION OR PSYCHOSIS). Active hydrOXYzine hydrochloride 50 mg oral tablet (17 sources) Antihistamine Start: 07-14-2024 take 1 tablet by mouth once daily hydrOXYzine HCL (Atarax) 50 mg tablet Indications: Bipolar affective disorder, remission status unspecified (Multi) Take 1 tablet (50 mg) by mouth once daily. 30 tablet 07/14/2024 Active Start: 02-08-2024 End: 02-29-2024 Hydroxyzine Pamoate (Vistari l) 25 mg capsule Active 50 mg PO THREE TIMES A DAY 180 February 29, 2024 11:23am Start: 02-08-2024 End: [...] Supplies (Autoject 2 Injection Device) insulin pen (4 sources) Start: 08-29-2024 Insulin Admin Supplies (Autoject 2 Injection Device) insulin pen Active 0 .Route 1 August 29, 2024 12:00am As directed 3 ml insulin glargine 100 unt/ml pen injector (20 sources) Insulin Analog Start: 08-29-2024 Insulin Glargi [...] ml insulin lispro 100 unt/ml pen injector (17 sources) Insulin Analog Start: 07-10-2024 inject 10 [...] 12/27/2023 Active pregabalin 50 mg oral capsule (4 sources) Start: 08-30-19 take 1 capsule by [...] / HYDROcodone bitartrate 5 mg oral tablet (5 sources) Opioid Agonist Start: 08-05-2023 End: 11-11-2023 Hydrocodone-Acetami nophen 5-325 mg tablet Discontinued 1 {tbl} PO EVERY 4 HOURS NEEDED as needed for Pain 15 August 05, 2023 November 11, 2023 8:46am On Hold: pt homeless Start: 08-05-2023 take 1 tablet by marcial th every four hours as needed Hydrocodone-Acetaminophen Active 1 TABLE T PO EVERY 4 HOURS NEEDED 27 06August 05, 2023 cefdinir 300 mg oral capsule (6 sources) Cephalosporin Antibacterial Start: 04-29-2024 End: 08-29-2024 [...] 03/31/2024 Active cephalexin 500 mg oral capsule (4 sources) Cephalosporin Antibacterial Start: 11-04-2023 End: 11-17-2023 take 1 capsule by mouth every six hours Cephalexin 500 mg capsule Discontinued 500 mg PO EVERY 6 HOURS 40 November 04, 2023 12:00am November 17, 2023 5:37am docusate sodium 100 mg oral capsule (5 sources) Start: 10-30-2013 End: 11-11-2023 take 1 capsule by mouth twice daily Docusate Sodium (Colace) 100 MG capsule Discontinued 100 mg PO TWICE A DAY October 30, 2013 12:00am November 11, 2023 8:47am On Hold: pt homeless doxycycline monohydrate 100 mg oral capsule (4 sources) Tetracycline-class Drug Start: 02-29-2024 End: 04-23-2024 take 1 capsule by mouth twice daily Doxycycline Monohydrate 100 mg capsule Discontinued 100 mg PO TWICE A DAY February 29, 2024 1:00am April 23, 2024 1:21pm escitalopram 20 mg oral tablet (5 sources) Serotonin Reuptake Inhibitor Start: 01-28-2013 End: [...] Tissue Infection gabapentin 300 mg oral capsule (5 sources) Anti-epileptic Agent Start: 04-23-2024 End: 08-29-2024 [...] Patient tolerates. lamoTRIgine 25 mg oral tablet (13 sources) Mood Stabilizer, Anti-epileptic Agent Start: 02-08-2024 End: 04-23-2024 take 1 tablet by mouth once daily Lamotrigine 25 mg tablet Discontinued 25 mg PO DAILY February 29, 2024 11:23am April 23, 2024 1:21pm Start: 12-27-2023 End: 01-26-2024 lamoTRIgine (LaMICtal) 25 mg tablet 02/29/2024 Active lamoTRIgine (MERRITT ICTAL PO) Take by mouth Active linaclotide 0.072 mg oral capsule (9 sources) Guanylate Cyclase-C Agonist Start: 02-09-2024 End: 08-29-2024 take 1 capsule by mouth once daily Linaclotide (Linzess) 72 mcg capsule Discontinued 72 ug PO DAILY February 29, 2024 11:23am August 29, 2024 1:51pm methocarbamol 750 mg oral tablet (5 sources) Muscle Relaxant Start: 01-29-2024 End: 04-23-2024 take 1 tablet by mouth every six hours as needed Methocarbamol 750 mg tablet Discontinued 750 mg PO EVERY 6 HOURS NEEDED as needed for muscle relaxer February 08, 2024 12:00am April 23, 2024 1:21pm omeprazole 40 mg delayed release oral capsule (9 sources) Proton Pump Inhibitor Start: 02-08-2024 End: 04-23-2024 take 1 capsule by mouth once daily Omeprazole 40 mg capsule,delayed release(DR/EC) Discontinued 40 mg PO DAILY February 29, 2024 11:23am April 23, 2024 1:21pm oxyCODONE hydrochloride 5 mg oral tablet (8 sources) Opioid Agonist Start: 05-01-2024 End: 08-29-2024 take 1 tablet by mouth every four hours as needed for pain Oxycodone 5 mg Tablet Discontinued 5 mg PO EVERY 4 HOURS NEEDED as needed for Pain Score 4-10 10 3 May 01, 2024 August 29, 2024 1:51pm Start: 02-29-2024 End: 04-23-2024 take 1 tablet by mouth every six hours as needed for pain Oxycodone 5 mg Tablet Discontinued 5 mg PO EVERY 6 HOURS NEEDED as needed for pain 4-10 10 3 February 29, 2024 April 23, 2024 1:21pm phenazopyridine hydrochloride 200 mg oral tablet (5 sources) Start: 01-30-2013 End: 05-25-2013 take 1 [...] mg / trimethoprim 160 mg oral tablet (13 sources) Dihydrofolate Reductase Inhibitor Antibacterial, Sulfonamide Antimicrobial Start: 11-17-2023 End: 02-08-2024 Sulfamethoxazole-Trimethopri m 800-160 mg tablet Discontinued 1 {tbl} PO TWICE A DAY 20 November 17, 2023 7:20am February 08, 2024 5:58am [...] Acute and unspecified renal failure (4 sources) Prerenal azotemia; Translations: [Unspecified kidney failure] 04-23-2024 Chronic Anal and rectal conditions (20 sources) Perirectal abscess; Translations: [Rectal abscess] Onset: 09-22-2012 04-10-2013 Episodic Bacterial infection; unspecified site (8 sources) Bacteremia; Translations: [Unspecified Escherichia coli [E. coli] as the cause of diseases classified elsewhere] Onset: 06-29-2024 Episodic Blindness and vision defects (4 sources) Reduced visual acuity; Translations: [Unspecified visual loss] 08-29-2024 Chronic Chronic ulcer of skin (11 sources) Non-pressure chronic ulcer of left heel and midfoot with unspecified severity; Translations: [Non-pressure chronic ulcer of unspecified heel and midfoot limited to breakdown of skin] Onset: 01-23-2024 Chronic Diabetes mellitus with complications (20 sources) Hyperglycemia due to diabetes mellitus; Translations: [Type 2 diabetes mellitus with hyperglycemia] Onset: 12-25-2023 12-25-2023 Chronic Diabetes mellitus without complication (20 sources) Type 2 diabetes mellitus; Translations: [Type 2 diabetes mellitus without complications] Onset: 08-22-2005 Resolved: 09-11-2007 04-10-2013 Chronic Diseases of white blood cells (6 sources) Leukocytosis; Translations: [Elevated white blood cell count, unspecified] Onset: 05-01-2024 04-29-2024 Chronic Disorders of lipid metabolism (5 sources) Hyperlipidemia; Translations: [Hyperlipidemia, unspecified] Onset: 08-03-2013 08-03-2013 Chronic Essential hypertension (1 source) Hypertensive disorder; Translations: [Essential (primary) hypertension] 10-01-2024 Chronic Fever of unknown origin (4 sources) Fever; Translations: [Fever, unspecified] 04-23-2024 Episodic Fluid and electrolyte disorders (5 sources) Lactic acidosis; Translations: [Lactic acidosis] 04-29-2024 Episodic Malaise and fatigue (11 sources) Asthenia; Translations: [Weakness] Onset: 05-01-2024 04-29-2024 Episodic Mood disorders (20 sources) Recurrent major depressive episodes, moderate ; Translations: [Major depressive disorder, recurrent, moderate] Onset: 10-17-2010 04-10-2013 Chronic Mycoses (2 sources) Mycosis; Translations: [Candidiasis, unspecified] Onset: 04-10-2024 04-10-2024 Episodic Nausea and vomiting (4 sources) Nausea; Translations: [Nausea] 08-29-2024 Episodic Nutritional deficiencies (5 sources) Malnutrition (calorie); [...] of sutures] Onset: 03-13-2024 Episodic Other aftercare (4 sources) Wound ; Translations: [Encounter for other specified surgical aftercare] 11-29-2023 Episodic Other aftercare (4 sources) Wound finding; Translations: [Encounter for other specified aftercare] 11-25-2023 Episodic Other connective tissue disease (5 sources) H/O: back problem; Translations: [Personal history of other diseases of the musculoskeletal system and connective tissue] 04-10-2013 Episodic Other connective tissue disease (3 sources) H/O: musculoskeletal disease; Translations: [Personal history of other diseases of the musculoskeletal system and connective tissue] 08-31-2024 Episodic Other ear and sense organ disorders (5 sources) Bilateral sensory hearing loss; Translations: [Sensorineural hearing loss, bilateral] Onset: 07-07-2012 04-10-2021 Chronic Other endocrine disorders (5 sources) Adrenal mass; Translations: [Other specified disorders of adrenal gland] Onset: 12-22-2008 10-24-2023 Chronic Other fractures (5 sources) Fracture of left rib; Translations: [Fracture of one rib, left side, initial encounter for closed fracture] 08-05-2023 Episodic Other injuries and conditions due to external causes (4 sources) Systemic inflammatory response syndrome; Translations: [Systemic [...] Onset: 09-08-2024 Episodic Other nervous system disorders (5 sources) Walking disability; Translations: [Difficulty in walking, not elsewhere classified] 04-29-2024 Chronic Other nervous system disorders (1 source) Difficulty in walking, not elsewhere classified; Translations: [Difficulty in walking, not elsewhere classified] Onset: 05-01-2024 Chronic Other nutritional; endocrine; and metabolic disorders (10 sources) Obesity; Translations: [Obesity, unspecified] Onset: 10-14-2007 04-10-2013 Chronic Other nutritional; endocrine; and metabolic disorders (5 sources) Obese class I; Translations: [Class 1 obesity] 04-29-2024 Chronic Other skin disorders (1 source) Sebaceous cyst of skin; Translations: [Sebaceous cyst] 10-01-2024 Episodic Other skin disorders (1 source) Sebaceous cyst; Translations: [Sebaceous cyst] Onset: 10-01-2024 Episodic Other upper respiratory infections (3 sources) Acute maxillary sinusitis; Translations: [Acute maxillary sinusitis, unspecified] Onset: 03-13-2024 03-13-2024 Episodic Residual codes; unclassified (5 sources) Sleep apnea; Translations: [Sleep apnea, unspecified] Onset: 12-08-2013 12-08-2013 Chronic Residual codes; unclassified (4 sources) Patient noncompliance - general; Translations: [General patient noncompliance] 02-08-2024 Episodic Residual codes; unclassified (5 sources) Tobacco user; Translations: [Tobacco use] 04-30-2024 Episodic Residual codes; unclassified (12 sources) Noncompliance with medication regimen; Translations: [Noncompliance with medication regimen] 02-21-2024 Episodic Residual codes; unclassified (3 sources) History of clinical finding in subject; Translations: [Other specified health status] 08-31-2024 Episodic Residual codes; unclassified (1 source) Illness, unspecified; Translations: [Illness, unspecified] Onset: 09-03-2024 Episodic Screening and history of mental health and substance abuse codes (13 sources) H/O: attempted suicide; Translations: [History of suicide attempt] Onset: 10-17-2010 04-10-2013 Episodic Sprains and strains (5 sources) Sprain of shoulder rotator cuff; Translations: [Sprain of unspecified rotator cuff capsule, initial encounter] 01-29-2013 Episodic Substance-related disorders (20 sources) Tobacco dependence syndrome; Translations: [Nicotine dependence, unspecified, uncomplicated] Onset: 12-28-2023 04-10-2013 Chronic Superficial injury; contusion (5 sources) Contusion of upper limb; Translations: [Contusion [...] Date Episodic/Chronic Acute and unspecified renal failure (5 sources) Acute renal failure syndrome; Translations: [Acute kidney failure, unspecified] Onset: 05-09-2024 05-07-2024 Episodic Complications of surgical procedures or medical care (5 sources) Postoperative hematoma formation; Translations: [Hematoma complicating a procedure] Onset: 01-03-2009 Resolved: 06-21-2010 06-21-2010 Episodic Diabetes mellitus without complication (15 sources) Hyperglycemia; Translations: [Hyperglycemia, unspecified] Onset: 02-10-2024 03-24-2024 Episodic E Codes: Fall (6 sources) Fall; Translations: [Unspecified fall, initial encounter] Onset: 05-01-2024 04-29-2024 Episodic Esophageal disorders (5 sources) Gastroesophageal reflux disease; Translations: [Gastro-esophageal reflux disease without esophagitis] Resolved: 06-21-2010 06-21-2010 Chronic Open wounds of head; neck; and trunk (1 source) Unspecified open wound of abdominal wall, unspecified quadrant without penetration into peritoneal cavity, initial encounter; Translations: [Unspecified open wound of abdominal wall, unspecified quadrant without penetration into peritoneal cavity, initial encounter] Onset: 04-17-2024 Episodic Other aftercare (1 source) care home (current) use of insulin; Translations: [care home (current) use of insulin] Onset: 05-01-2024 Episodic [...] conditions (not mental disorders or infectious disease) (14 sources) Abnormal finding on screening procedure; Translations: [Abnormal level of other drugs, medicaments and biological substances in specimens from other organs, systems and tissues] Onset: 03-04-2012 04-10-2021 Episodic Pleurisy; pneumothorax; pulmonary collapse (10 sources) Bilateral pleural effusion; Translations: [Pleural effusion, not elsewhere classified] Onset: 05-09-2024 04-29-2024 Episodic Pneumonia (except that caused by tuberculosis or sexually transmitted disease) (7 sources) Pneumonia; Translations: [Pneumonia, unspecified organism] Onset: 05-01-2024 04-29-2024 Episodic Poisoning by other medications and drugs (5 sources) Acetaminophen overdose; Translations: [Poisoning by 4-Aminophenol derivatives, accidental (unintentional), initial encounter] Onset: 10-17-2010 04-10-2021 Episodic Residual codes; unclassified (5 sources) Other specified health status; Translations: [Failure of outpatient treatment] Onset: 02-29-2024 02-08-2024 Episodic Residual codes; unclassified (1 source) Procedure and treatment not carried out due to patient leaving prior to being seen by health care provider; Translations: [Procedure and treatment not carried out due to patient leaving prior to being seen by health care provider] Onset: 06-26-2024 Episodic Residual codes; unclassified (1 source) Tobacco [...] [Lumbago] Onset: 03-23-2005 Resolved: 09-11-2007 10-24-2023 Episodic Suicide and intentional self-inflicted injury (11 sources) Poisoning by unspecified drugs, medicaments and biological substances, intentional self-harm, initial encounter; Translations: [Intentional drug overdose] Onset: 02-10-2024 04-10-2013 Episodic Results Test Name Value Interpretation Reference Range Facility Emergency Department Summary on 10-01-2024 Emergency Department Summary Normal [facility] Urine Cultureon 09-02-2024 URC Below infection leve l. Mixed Gram Positive Organisms [place] Count 1000-10,000 MIXC Mixed contaminants. Submit a new specimen if indicated. Normal [facility] Comment on above: Performed By: #### M 100.2200 ####[facility] [address] [place], [place], [id number] 12 Lead EKGon 09-01-2024 12 Lead EKG Normal [facility] 12 Lead EKG Normal [facility] Absolute lymphocyte countOrd ered By: Chetna Sorensen on 09-01-2024 Lymphocytes Auto (Unsp spec) [#/Vol] 0.96 10*3/uL 0.83-4.51 [facility] Absolute neutrophil countOrd ered By: Chetna Sorensen on 09-01-2024 Neutrophils (Bld) [#/Vol] 2.7 10*3/uL 2.0-7.7 [facility] Amphetamine detection with 1 000 ng/mL as cutoffOrdered By: Chetna Sorensen on 09-01-2024 Amphetamines Screen method >1000 ng/mL Ql (U) Positive <1000 ng/mL [facility] Comment on above: If confirmation test ing is needed, a separate order will be required to send out testing to the reference laboratory. Amphetamines Screen method >1000 ng/mL Ql (U) Negative < 200 ng/mL [facility] Anion gap in Serum or Plasma Ordered By: Chetna Sorensen on 09-01-2024 Anion gap [Moles/Vol] 10 mmol/L 08-27 [facility] Automated lymphocyte count a s percentage of total leukocytesOrdered By: Chetna Sorensen on 09-01-2024 Lymphocytes/100 WBC Auto (Unsp spec) 22.1 % [facility] BUN/creatinine ratioOrdered By: Chetna Sorensen on 09-01-2024 Urea nitrogen/Creatinine [Mass ratio] 13.7 mg/mg 02-01 [facility] Basic Metabolic Profile (BMP )on 09-01-2024 BUN/CRE 13.7 RATIO Normal 02-01 [facility] Comment on above: Performed By: #### L 501.3620, L501.4021, L100.0100, L500.2500 ####[facility] [address] [place], [address] Calcium [Mass/Vol] 8.8 mg/dL Normal 7.6-11.0 [facility] Comment on above: Performed By: #### L 501.3620, L501.4021, L100.0100, L500.2500 ####[facility] [address] [place], [address] Chloride [Moles/Vol] 106 mmol/L Normal 98-108 [facility] Comment on above: Performed By: #### L 501.3620, L501.4021, L100.0100, L500.2500 ####[facility] [address] [place], [address] CO2 [Moles/Vol] 24.7 mmol/L Normal 21.0-32.0 [facility] Comment on above: Performed By: #### L 501.3620, L501.4021, L100.0100, L500.2500 ####[facility] [address] [place], [address] Creatinine [Mass/Vol] 0.50 mg/dL Low 0.70-1.20 [facility] Comment on above: Performed By: #### L 501.3620, L501.4021, L100.0100, L500.2500 ####[facility] [address] [place], [address] ECRCL 117.09 ml/min Normal 50-250 [facility] Comment on above: Performed By: #### L 501.3620, L501.4021, L100.0100, L500.2500 ####[facility] [address] [place], [address] GAP 10 Normal 5-15 [facility] Comment on above: Performed By: #### L 501.3620, L501.4021, L100.0100, L500.2500 ####[facility] [address] [place], [address] GFR/1.73 sq M.predicted among non-blacks MDRD (S/P/Bld) [Vol rate/Area] 112 mL/min/{1.73_m2} Normal >60 [facility] Comment on above: Result Comment: mL/m in/1.73m2 CKD-EPI Creatinine Equation (2020) Performed By: #### L 501.3620, L501.4021, L100.0100, L500.2500 ####[facility] [address] [place], [address] Glucose [Mass/Vol] 318 mg/dL High 70-99 [facility] Comment on above: Performed By: #### L 501.3620, L501.4021, L100.0100, L500.2500 ####[facility] [address] [place], [address] Potassium [Moles/Vol] 3.5 mmol/L Normal 3.3-5.1 [facility] Comment on above: Performed By: #### L 501.3620, L501.4021, L100.0100, L500.2500 ####[facility] [address] [place], [address] Sodium [Moles/Vol] 141 mmol/L Normal 133-145 [facility] Comment on above: Performed By: #### L 501.3620, L501.4021, L100.0100, L500.2500 ####[facility] [address] [place], [address] Urea nitrogen [Mass/Vol] 7 mg/dL Normal 4-19 [facility] Comment on above: Performed By: #### L 501.3620, L501.4021, L100.0100, L500.2500 ####[facility] [address] [place], [address] Basophil percentageOrdered B y: Chetna Sorensen on 09-01-2024 Basophils/100 WBC (Bld) 0.5 % 0-1 [facility] Bedside Glucoseon 09-01-2024 FINGERSTICK GLU 354 mg/dL High 74-106 [facility] Comment on above: Result Comment: DELLA GEMENT OF PATIENT CARE PER NURSING PROTOCOL Performed By: #### L 501.080 ####[facility] [address] [place], [address] FINGERSTICK GLU 365 mg/dL High 74-106 [facility] Comment on above: Result Comment: DELLA GEMENT OF PATIENT CARE PER NURSING PROTOCOL Performed By: #### L 501.080 ####[facility] [address] [place], [address] CBC W/Diff, Automatedon 08-14 Absolute Lymph 0.96 X10 3/uL Normal 0.83-4.51 [facility] Comment on above: Performed By: #### L 501.3620, L501.4021, L100.0100, L500.2500 ####[facility] [address] [place], [address] Absolute Neut 2.7 X10 3/uL Normal 2.0-7.7 [facility] Comment on above: Performed By: #### L 501.3620, L501.4021, L100.0100, L500.2500 ####[facility] [address] [place], [address] Basophils/100 WBC (Bld) 0.5 % Normal 0-1 [facility] Comment on above: Performed By: #### L 501.3620, L501.4021, L100.0100, L500.2500 ####[facility] [address] [place], [address] Eosinophils/100 WBC (Bld) 3.5 % Normal 0-5 [facility] Comment on above: Performed By: #### L 501.3620, L501.4021, L100.0100, L500.2500 ####[facility] [address] [place], [address] Erythrocyte distribution width (RBC) [Ratio] 13.1 % Normal 11.6-14.6 [facility] Comment on above: Performed By: #### L 501.3620, L501.4021, L100.0100, L500.2500 ####[facility] [address] [place], [address] Hematocrit (Bld) [Volume fraction] 39.7 % Normal 37-47 [facility] Comment on above: Performed By: #### L 501.3620, L501.4021, L100.0100, L500.2500 ####[facility] [address] [place], [address] Hemoglobin (Bld) [Mass/Vol] 13.6 g/dL Normal 12.0-15.0 [facility] Comment on above: Performed By: #### L 501.3620, L501.4021, L100.0100, L500.2500 ####[facility] [address] [place], [address] IG% 0.500 Normal 0.0-0.9 [facility] Comment on above: Result Comment: IG% - Immature Granulocytes (promyelocytes, myelocytes andmetamyelocytes) > 1% indicates that a LEFT SHIFT is Present. Performed By: #### L 501.3620, L501.4021, L100.0100, L500.2500 ####[facility] [address] [place], [address] Lymphocytes/100 WBC (Bld) 22.1 % Normal 19-41 [facility] Comment on above: Performed By: #### L 501.3620, L501.4021, L100.0100, L500.2500 ####[facility] [address] [place], [address] MCH (RBC) [Entitic mass] 28.3 pg Normal 27.0-32.0 [facility] Comment on above: Performed By: #### L 501.3620, L501.4021, L100.0100, L500.2500 ####[facility] [address] [place], [address] MCHC (RBC) [Mass/Vol] 34.3 g/dL Normal 32-36 [facility] Comment on above: Performed By: #### L 501.3620, L501.4021, L100.0100, L500.2500 ####[facility] [address] [place], [address] MCV (RBC) [Entitic vol] 82.7 fL Normal 81-99 [facility] Comment on above: Performed By: #### L 501.3620, L501.4021, L100.0100, L500.2500 ####[facility] [address] [place], [address] Monocytes/100 WBC (Bld) 11.3 % High 0-10 [facility] Comment on above: Performed By: #### L 501.3620, L501.4021, L100.0100, L500.2500 ####[facility] [address] [place], [address] Neutrophils/100 WBC (Bld) 62.1 % Normal 47-70 [facility] Comment on above: Performed By: #### L 501.3620, L501.4021, L100.0100, L500.2500 ####[facility] [address] [place], [address] Nucleated RBC (Bld) [#/Vol] 0 10*3/uL Normal 0-5 [facility] Comment on above: Performed By: #### L 501.3620, L501.4021, L100.0100, L500.2500 ####[facility] [address] [place], [address] Platelet mean volume (Bld) [Entitic vol] 9.8 fL Normal 6.2-12.0 [facility] Comment on above: Performed By: #### L 501.3620, L501.4021, L100.0100, L500.2500 ####[facility] [address] [place], [address] Platelets (Bld) [#/Vol] 186 10*3/uL Normal 150-450 [facility] Comment on above: Performed By: #### L 501.3620, L501.4021, L100.0100, L500.2500 ####[facility] [address] [place], [address] RBC (Bld) [#/Vol] 4.80 10*6/uL Normal 4.2-5.4 [facility] Comment on above: Performed By: #### L 501.3620, L501.4021, L100.0100, L500.2500 ####[facility] [address] [place], [address] RDW SD 39.3 fl Normal 35.1-43.9 [facility] Comment on above: Performed By: #### L 501.3620, L501.4021, L100.0100, L500.2500 ####[facility] [address] [place], [address] WBC (Bld) [#/Vol] 4.3 10*3/uL Low 4.4-11.0 [facility] Comment on above: Performed By: #### L 501.3620, L501.4021, L100.0100, L500.2500 ####[facility] [address] [place], [address] CPK Total, Creatine Kinaseon 09-01-2024 CPK TOTAL 31 U/L Normal 24-195 [facility] Comment on above: Performed By: #### L 501.3620, L501.4021, L100.0100, L500.2500 ####[facility] [address] [place], [address] Carbon dioxide, total [Moles /volume] in Central venous bloodOrdered By: Chetna Sorensen on 09-01-2024 CO2 [Moles/Vol] 24.7 mmol/L 21.0-32.0 [facility] Chest PA and Lateralon 09-01 Chest PA and Lateral Normal [facility] Chloride assayOrdered By: Ronal Sorensen on 09-01-2024 Chloride [Moles/Vol] 106 mmol/L 98-108 [facility] Electrocardiogram reportOrde red By: Alec Casas on 09-01-2024 EKG study [facility] Cardiovascular Services [address] [place] [address] 12 Lead EKG 08/31/24 1818 MR#: [id number] Acct: [id number] Name: ANA CRISTINA THOMAS Rep #:[id number] 31 : 1970 53 From: Alec Casas MD Attending Dr: Status: REG E R Ordering Dr: Chetna Sorensen DO Date: 0 09/01/24 Location: ED Sex: F C Admitted: [...] age undetermined Abnormal ECG Confirmed by ALEC CSAAS MD ([id number]), society editor SYLVESTER BURCH ([id number]) on 51:28:51 PM Referred By: CATALINA Confirmed By: ALEC CASAS MD 09/01/24 1328 Date _ Alec Casas MD CC: Dr. Chetna Sorensen DO; No Primary Care Physician ~ Signed [facility] Other Emergency Department Summary on 09-01-2024 Emergency Department Summary Normal [facility] Eosinophil percentageOrdered By: Chetna Sorensen on 09-01-2024 Eosinophils/100 WBC (Bld) 3.5 % 0-5 [facility] Erythrocyte distribution wid th ratioOrdered By: Chetna Sorensen on 09-01-2024 Erythrocyte distribution width (RBC) [Ratio] 13.1 % 11.6-14.6 [facility] Erythrocyte distribution wid th standard deviationOrdered By: Chetna Sorensen on 09-01-2024 Erythrocyte distribution width (RBC) [Ratio] 39.3 fl 35.1-43.9 [facility] Glomerular filtration rate ( GFR) estimation/1.73 sq m using serum, plasma, or whole bOrdered By: Chetna Sorensen on 09-01-2024 GFR/1.73 sq M.predicted among non-blacks MDRD (S/P/Bld) [Vol rate/Area] 112 mL/min/{1.73_m2} >60 [facility] Comment on above: mL/min/1.73m2 CKD-EP I Creatinine Equation (2020) [facility] deOrdered By: Chetna Sorensen on 09-01-2024 Glucose [Mass/Vol] 354 mg/dL High 74-106 [facility] Comment on above: MANAGEMENT OF PATIEN T CARE PER NURSING PROTOCOL Hematocrit Auto (Bld) [Volum e fraction]Ordered By: Chetna Sorensen on 09-01-2024 Hematocrit (Bld) [Volume fraction] 39.7 % 37-47 [facility] Hemoglobin measurementOrdere d By: Chetna Sorensen on 09-01-2024 Hemoglobin (Bld) [Mass/Vol] 13.6 g/dL 12.0-15.0 [facility] Immature granulocytes/100 WB C Auto (Bld)Ordered By: Chetna Sorensen on 09-01-2024 Immature granulocytes/100 WBC (Bld) 0.500 % 0.0-0.9 [facility] Comment on above: IG% - Immature Granu locytes (promyelocytes, myelocytes and metamyelocytes) > 1% indicates that a LEFT SHIFT is Present. L499.0042on 09-01-2024 Trop T High Sen < 6 Normal <=14 [facility] Comment on above: Performed By: #### L 499.0042 ####[facility] [address] [place], [address] L499.0043on 09-01-2024 Trop T High Sen < 6 Normal <=14 [facility] Comment on above: Performed By: #### L 499.0043 ####[facility] [address] [place], [address] L501.4021on 09-01-2024 Trop T High Sen < 6 Normal <=14 [facility] Comment on above: Performed By: #### L 501.3620, L501.4021, L100.0100, L500.2500 ####[facility] [address] [place], [address] MCV (mean corpuscular volume ) determinationOrdered By: Chetna Sorensen on 09-01-2024 MCV (RBC) [Entitic vol] 82.7 fL 81-99 [facility] Mean corpuscular hemoglobin (MCH) determinationOrdered By: Chetna Sorensen on 09-01-2024 MCH (RBC) [Entitic mass] 28.3 pg 27.0-32.0 [facility] Mean corpuscular hemoglobin concentration (MCHC) determinationOrdered By: Chetna Sorensen on 09-01-2024 MCHC (RBC) [Mass/Vol] 34.3 g/dL 32-36 [facility] Mean platelet volume determi nationOrdered By: Chetna Sorensen on 09-01-2024 Platelet mean volume (Bld) [Entitic vol] 9.8 fL 6.2-12.0 [facility] Monocyte percentageOrdered B y: Chetna Sorensen on 09-01-2024 Monocytes/100 WBC (Bld) 11.3 % High 0-10 [facility] Neutrophil percentageOrdered By: Chetna Sorensen on 09-01-2024 Neutrophils/100 WBC (Bld) 62.1 % 47-70 [facility] No Panel InformationOrdered By: Chetna Sorensen on 09-01-2024 Urine Buprenorphine Qualitative Negative < 200 ng/mL [facility] Urine Oxycodone Screen Negative < 100 ng/mL [facility] Nucleated red blood cell per centageOrdered By: Chetna Sorensen on 09-01-2024 Nucleated RBC/100 WBC (Bld) [Ratio] 0 % 0-5 [facility] Platelet countOrdered By: Ronal Sorensen on 09-01-2024 Platelets (Bld) [#/Vol] 186 10*3/uL 150-450 [facility] Potassium measurement (mass/ volume)Ordered By: Chetna Sorensen on 09-01-2024 Potassium (Unsp spec) [Mass/Vol] 3.5 mmol/L 3.3-5.1 [facility] Quantitative urine opiates m easurementOrdered By: Chetna Sorensen on 09-01-2024 Opiates Ql (U) Negative < 300 ng/mL [facility] RBC Auto (Bld) [#/Vol]Ordere d By: Chetna Sorensen on 09-01-2024 RBC (Bld) [#/Vol] 4.80 10*6/uL 4.2-5.4 [facility] Screening urine fentanyl saeed surementOrdered By: Chetna Sorensen on 09-01-2024 fentaNYL Screen Ql (U) Negative [facility] Serum creatinine measurement (mass/volume)Ordered By: Chetna Sorensen on 09-01-2024 Creatinine [Mass/Vol] 0.50 mg/dL Low 0.70-1.20 [facility] Serum glucose measurement (m ass/volume)Ordered By: Chetna Sorensen on 09-01-2024 Glucose [Mass/Vol] 318 mg/dL High 70-99 [facility] Serum or plasma calcium anna urement (mass/volume)Ordered By: Chetna Sorensen on 09-01-2024 Calcium [Mass/Vol] 8.8 mg/dL 7.6-11.0 [facility] Serum or plasma creatine kin ase activityOrdered By: Chetna Sorensen on 09-01-2024 CK [Catalytic activity/Vol] 31 U/L 24-195 [facility] Serum or plasma urea nitroge n measurement (mass/volume)Ordered By: Chetna Sorensen on 09-01-2024 Urea nitrogen [Mass/Vol] 7 mg/dL 4-19 [facility] Sodium levelOrdered By: Dara Sorensen on 09-01-2024 Sodium [Moles/Vol] 141 mmol/L 133-145 [facility] Troponin T.cardiac [Mass/vol ume] in Serum or Plasma by High sensitivity methodOrdered By: Chetna Sorensen on 09-01-2024 Troponin T.cardiac High sensitivity method [Mass/Vol] < 6 ng/L <14 [facility] Troponin T.cardiac High sensitivity method [Mass/Vol] < 6 ng/L <14 [facility] Troponin T.cardiac High sensitivity method [Mass/Vol] < 6 ng/L <14 [facility] Urine Drug Screen (VISTA)on 09-01-2024 AMPHETAMINES Positive Normal <1000 ng/mL [facility] Comment on above: Result Comment: If c onfirmation testing is needed, a separate order will berequired to send out testing to the reference laboratory. Performed By: #### L 505.5000 ####[facility] [address] [facility] [address] BARBITIURATES Negative Normal < 200 ng/mL [facility] Comment on above: Performed By: #### L 505.5000 ####[facility] [address] [facility] [address] BENZODIAZIPINE Negative Normal < 200 ng/mL [facility] Comment on above: Performed By: #### L 505.5000 ####[facility] [address] [facility] [address] BUP Ur Drug Scr Negative Normal < 200 ng/mL [facility] Comment on above: Performed By: #### L 505.5000 ####[facility] [address] [place] [id number] COCAINE Positive Normal < 300 ng/mL [facility] Comment on above: Result Comment: If c onfirmation testing is needed, a separate order will berequired to send out testing to the reference laboratory. Performed By: #### L 505.5000 ####[facility] [address] [place] [address] Fentanyl Negative Normal [facility] Comment on above: Performed By: #### L 505.5000 ####[facility] [address] [place] [address] METHADONE Negative Normal < 300 ng/mL [facility] Comment on above: Performed By: #### L 505.5000 ####[facility] [address] [place] [id number] OPIATES Negative Normal < 300 ng/mL [facility] Comment on above: Performed By: #### L 505.5000 ####[facility] [address] [facility] [address] OXYCODONE Negative Normal < 100 ng/mL [facility] Comment on above: Performed By: #### L 505.5000 ####[facility] [address] [place], [place], [id number] PCP Negative Normal < 25 ng/mL [facility] Comment on above: Performed By: #### L 505.5000 ####[facility] [address] [place], [address] THC Negative Normal < 50 ng/mL [facility] Comment on above: Performed By: #### L 505.5000 ####[facility] [address] [place], [place], [id number] Urine benzodiazepine levelOr dered By: Chetna Sorensen on 09-01-2024 Benzodiazepines Ql (U) Negative < 200 ng/mL [facility] Urine cocaine levelOrdered B y: Chetna Sorensen on 09-01-2024 Cocaine Ql (U) Positive < 300 ng/mL [facility] Comment on above: If confirmation test ing is needed, a separate order will be required to send out testing to the reference laboratory. Urine ylaxw-3-xmjgeldxnmhmyd abinol (THC) measurementOrdered By: Chetna Sorensen on 09-01-2024 Cannabinoids Screen Ql (U) Negative < 50 ng/mL [facility] Urine phencyclidine (PCP) de tectionOrdered By: Chetna Sorensen on 09-01-2024 Phencyclidine Ql (U) Negative < 25 ng/mL [facility] White blood cell (WBC) count Ordered By: Chetna Sorensen on 09-01-2024 WBC (Bld) [#/Vol] 4.3 10*3/uL Low 4.4-11.0 [facility] Absolute lymphocyte countOrd ered By: Nate Conrad on 08-31-2024 Lymphocytes Auto (Unsp spec) [#/Vol] 1.26 10*3/uL 0.83-4.51 [facility] Absolute neutrophil countOrd ered By: Nate Conrad on 08-31-2024 Neutrophils (Bld) [#/Vol] 3.3 10*3/uL 2.0-7.7 [facility] Anion gap in Serum or Plasma Ordered By: Nate Conrad on 08-31-2024 Anion gap [Moles/Vol] 12 mmol/L 08-27 [facility] Automated lymphocyte count a s percentage of total leukocytesOrdered By: Nate Conrad on 08-31-2024 Lymphocytes/100 WBC Auto (Unsp spec) 24.2 % [facility] BUN/creatinine ratioOrdered By: Nate Conrad on 08-31-2024 Urea nitrogen/Creatinine [Mass ratio] 14.3 mg/mg 02-01 [facility] Basic Metabolic Profile (BMP )on 08-31-2024 BUN/CRE 14.3 RATIO Normal 02-01 [facility] Comment on above: Performed By: #### L 100.0100, L501.6901, L500.2500 ####[facility] [address] [place], [address] Calcium [Mass/Vol] 9.0 mg/dL Normal 7.6-11.0 [facility] Comment on above: Performed By: #### L 100.0100, L501.6901, L500.2500 ####[facility] [address] [place], [address] Chloride [Moles/Vol] 101 mmol/L Normal 98-108 [facility] Comment on above: Performed By: #### L 100.0100, L501.6901, L500.2500 ####[facility] [address] [place], [address] CO2 [Moles/Vol] 24.8 mmol/L Normal 21.0-32.0 [facility] Comment on above: Performed By: #### L 100.0100, L501.6901, L500.2500 ####[facility] [address] [place], [address] Creatinine [Mass/Vol] 0.52 mg/dL Low 0.70-1.20 [facility] Comment on above: Performed By: #### L 100.0100, L501.6901, L500.2500 ####[facility] [address] [place], [address] ECRCL 112.58 ml/min Normal 50-250 [facility] Comment on above: Performed By: #### L 100.0100, L501.6901, L500.2500 ####[facility] [address] [place], [address] GAP 12 Normal 5-15 [facility] Comment on above: Performed By: #### L 100.0100, L501.6901, L500.2500 ####[facility] [address] [place], [address] GFR/1.73 sq M.predicted among non-blacks MDRD (S/P/Bld) [Vol rate/Area] 111 mL/min/{1.73_m2} Normal >60 [facility] Comment on above: Result Comment: mL/m in/1.73m2 CKD-EPI Creatinine Equation (2020) Performed By: #### L 100.0100, L501.6901, L500.2500 ####[facility] [address] [place], [address] Glucose [Mass/Vol] 333 mg/dL High 70-99 [facility] Comment on above: Performed By: #### L 100.0100, L501.6901, L500.2500 ####[facility] [address] [place], [address] Potassium [Moles/Vol] 3.2 mmol/L Low 3.3-5.1 [facility] Comment on above: Performed By: #### L 100.0100, L501.6901, L500.2500 ####[facility] [address] [place], [address] Sodium [Moles/Vol] 138 mmol/L Normal 133-145 [facility] Comment on above: Performed By: #### L 100.0100, L501.6901, L500.2500 ####[facility] [address] [place], [address] Urea nitrogen [Mass/Vol] 7 mg/dL Normal - [facility] Comment on above: Performed By: #### L 100.0100, L501.6901, L500.2500 ####[facility] [address] [place], [address] Basophil percentageOrdered B y: Nate Conrad on 08-31-2024 Basophils/100 WBC (Bld) 0.8 % 0-1 [facility] Beta-Hydroxbytyrateon 2024 BETA-HYDROXYBUT 0.6 mmol/L Normal 0.0-0.3 [facility] Comment on above: Performed By: #### L 100.0100, L501.6901, L500.2500 ####[facility] [address] [place], [address] Beta-hydroxybutyrateOrdered By: Nate Conrad on 08-31-2024 Beta hydroxybutyrate [Mass/Vol] 0.6 mmol/L 0.0-0.3 [facility] Bilirubin Test strip Ql (U)O rdered By: Nate Conrad on 08-31-2024 Bilirubin Ql (U) Negative Negative [facility] CBC W/Diff, Automatedon 08-13 Absolute Lymph 1.26 X10 3/uL Normal 0.83-4.51 [facility] Comment on above: Performed By: #### L 100.0100, L501.6901, L500.2500 ####[facility] [address] [place], [address] Absolute Neut 3.3 X10 3/uL Normal 2.0-7.7 [facility] Comment on above: Performed By: #### L 100.0100, L501.6901, L500.2500 ####[facility] [address] [place], [address] Basophils/100 WBC (Bld) 0.8 % Normal 0-1 [facility] Comment on above: Performed By: #### L 100.0100, L501.6901, L500.2500 ####[facility] [address] [place], [address] Eosinophils/100 WBC (Bld) 2.7 % Normal 0-5 [facility] Comment on above: Performed By: #### L 100.0100, L501.6901, L500.2500 ####[facility] [address] [place], [address] Erythrocyte distribution width (RBC) [Ratio] 13.0 % Normal 11.6-14.6 [facility] Comment on above: Performed By: #### L 100.0100, L501.6901, L500.2500 ####[facility] [address] [place], [address] Hematocrit (Bld) [Volume fraction] 42.4 % Normal 37-47 [facility] Comment on above: Performed By: #### L 100.0100, L501.6901, L500.2500 ####[facility] [address] [place], [address] Hemoglobin (Bld) [Mass/Vol] 14.5 g/dL Normal 12.0-15.0 [facility] Comment on above: Performed By: #### L 100.0100, L501.6901, L500.2500 ####[facility] [address] [place], [address] IG% 0.400 Normal 0.0-0.9 [facility] Comment on above: Result Comment: IG% - Immature Granulocytes (promyelocytes, myelocytes andmetamyelocytes) > 1% indicates that a LEFT SHIFT is Present. Performed By: #### L 100.0100, L501.6901, L500.2500 ####[facility] [address] [place], [address] Lymphocytes/100 WBC (Bld) 24.2 % Normal 19-41 [facility] Comment on above: Performed By: #### L 100.0100, L501.6901, L500.2500 ####[facility] [address] [place], [address] MCH (RBC) [Entitic mass] 28.2 pg Normal 27.0-32.0 [facility] Comment on above: Performed By: #### L 100.0100, L501.6901, L500.2500 ####[facility] [address] [place], [address] MCHC (RBC) [Mass/Vol] 34.2 g/dL Normal 32-36 [facility] Comment on above: Performed By: #### L 100.0100, L501.6901, L500.2500 ####[facility] [address] [place], [address] MCV (RBC) [Entitic vol] 82.3 fL Normal 81-99 [facility] Comment on above: Performed By: #### L 100.0100, L501.6901, L500.2500 ####[facility] [address] [place], [address] Monocytes/100 WBC (Bld) 8.6 % Normal 0-10 [facility] Comment on above: Performed By: #### L 100.0100, L501.6901, L500.2500 ####[facility] [address] [place], [address] Neutrophils/100 WBC (Bld) 63.3 % Normal 47-70 [facility] Comment on above: Performed By: #### L 100.0100, L501.6901, L500.2500 ####[facility] [address] [place], [address] Nucleated RBC (Bld) [#/Vol] 0 10*3/uL Normal 0-5 [facility] Comment on above: Performed By: #### L 100.0100, L501.6901, L500.2500 ####[facility] [address] [place], [address] Platelet mean volume (Bld) [Entitic vol] 9.9 fL Normal 6.2-12.0 [facility] Comment on above: Performed By: #### L 100.0100, L501.6901, L500.2500 ####[facility] [address] [place], [address] Platelets (Bld) [#/Vol] 211 10*3/uL Normal 150-450 [facility] Comment on above: Performed By: #### L 100.0100, L501.6901, L500.2500 ####[facility] [address] [place], [address] RBC (Bld) [#/Vol] 5.15 10*6/uL Normal 4.2-5.4 [facility] Comment on above: Performed By: #### L 100.0100, L501.6901, L500.2500 ####[facility] [address] [place], [address] RDW SD 38.5 fl Normal 35.1-43.9 [facility] Comment on above: Performed By: #### L 100.0100, L501.6901, L500.2500 ####[facility] [address] [place], [address] WBC (Bld) [#/Vol] 5.2 10*3/uL Normal 4.4-11.0 [facility] Comment on above: Performed By: #### L 100.0100, L501.6901, L500.2500 ####[facility] [address] [place], [address] Carbon dioxide, total [Moles /volume] in Central venous bloodOrdered By: Nate Conrad on 08-31-2024 CO2 [Moles/Vol] 24.8 mmol/L 21.0-32.0 [facility] Chloride assayOrdered By: Shaquille Conrad on 08-31-2024 Chloride [Moles/Vol] 101 mmol/L 98-108 [facility] Emergency Department Summary on 08-31-2024 Emergency Department Summary Normal [facility] Eosinophil percentageOrdered By: Nate Conrad on 08-31-2024 Eosinophils/100 WBC (Bld) 2.7 % 0-5 [facility] Erythrocyte distribution wid th ratioOrdered By: Nate Conrad on 08-31-2024 Erythrocyte distribution width (RBC) [Ratio] 13.0 % 11.6-14.6 [facility] Erythrocyte distribution wid th standard deviationOrdered By: Nate Conrad on 08-31-2024 Erythrocyte distribution width (RBC) [Ratio] 38.5 fl 35.1-43.9 [facility] Glomerular filtration rate ( GFR) estimation/1.73 sq m using serum, plasma, or whole bOrdered By: Nate Conrad on 08-31-2024 GFR/1.73 sq M.predicted among non-blacks MDRD (S/P/Bld) [Vol rate/Area] 111 mL/min/{1.73_m2} >60 [facility] Comment on above: mL/min/1.73m2 CKD-EP I Creatinine Equation (2020) Hematocrit Auto (Bld) [Volum e fraction]Ordered By: Nate Conrad on 08-31-2024 Hematocrit (Bld) [Volume fraction] 42.4 % 37-47 [facility] Hemoglobin measurementOrdere d By: Nate Conrad on 08-31-2024 Hemoglobin (Bld) [Mass/Vol] 14.5 g/dL 12.0-15.0 [facility] Immature granulocytes/100 WB C Auto (Bld)Ordered By: Nate Conrad on 08-31-2024 Immature granulocytes/100 WBC (Bld) 0.400 % 0.0-0.9 [facility] Comment on above: IG% - Immature Granu locytes (promyelocytes, myelocytes and metamyelocytes) > 1% indicates that a LEFT SHIFT is Present. Ketones Test strip Ql (U)Ord ered By: Nate Conrad on 08-31-2024 Ketones Ql (U) 15 mg/dl High Negative [facility] MCV (mean corpuscular volume ) determinationOrdered By: Nate Conrad on 08-31-2024 MCV (RBC) [Entitic vol] 82.3 fL 81-99 [facility] Mean corpuscular hemoglobin (MCH) determinationOrdered By: Nate Conrad on 08-31-2024 MCH (RBC) [Entitic mass] 28.2 pg 27.0-32.0 [facility] Mean corpuscular hemoglobin concentration (MCHC) determinationOrdered By: Nate Conrad on 08-31-2024 MCHC (RBC) [Mass/Vol] 34.2 g/dL 32-36 [facility] Mean platelet volume determi nationOrdered By: Nate Conrad on 08-31-2024 Platelet mean volume (Bld) [Entitic vol] 9.9 fL 6.2-12.0 [facility] Microscopic analysis of urin e for red blood cells (RBC)Ordered By: Nate Conrad on 08-31-2024 Microscopic analysis of urine for red blood cells (RBC) 10-25 SEEN /hpf 0-5 [facility] Monocyte percentageOrdered B y: Nate Conrad on 08-31-2024 Monocytes/100 WBC (Bld) 8.6 % 0-10 [facility] Mucus LM Ql (Urine sed)Order ed By: Nate Conrad on 08-31-2024 Mucus Ql (Urine sed) 0 SEEN /hpf [facility] Neutrophil percentageOrdered By: Nate Conrad on 08-31-2024 Neutrophils/100 WBC (Bld) 63.3 % 47-70 [facility] Nitrite Test strip Ql (U)Ord ered By: Nate Conrad on 08-31-2024 Nitrite Ql (U) Negative Negative [facility] Nucleated red blood cell per centageOrdered By: Nate Conrad on 08-31-2024 Nucleated RBC/100 WBC (Bld) [Ratio] 0 % 0-5 [facility] Platelet countOrdered By: Shaquille Conrad on 08-31-2024 Platelets (Bld) [#/Vol] 211 10*3/uL 150-450 [facility] Potassium measurement (mass/ volume)Ordered By: Nate Conrad on 08-31-2024 Potassium (Unsp spec) [Mass/Vol] 3.2 mmol/L Low 3.3-5.1 [facility] Protein Test strip Ql (U)Ord ered By: Nate Conrad on 08-31-2024 Protein Ql (U) 15 mg/dl High Negative [facility] RBC Auto (Bld) [#/Vol]Ordere d By: Nate Conrad on 08-31-2024 RBC (Bld) [#/Vol] 5.15 10*6/uL 4.2-5.4 [facility] Serum creatinine measurement (mass/volume)Ordered By: Nate Conrad on 08-31-2024 Creatinine [Mass/Vol] 0.52 mg/dL Low 0.70-1.20 [facility] Serum glucose measurement (m ass/volume)Ordered By: Nate Conrad on 08-31-2024 Glucose [Mass/Vol] 333 mg/dL High 70-99 [facility] Serum or plasma calcium anna urement (mass/volume)Ordered By: Nate Conrad on 08-31-2024 Calcium [Mass/Vol] 9.0 mg/dL 7.6-11.0 [facility] Serum or plasma urea nitroge n measurement (mass/volume)Ordered By: Nate Conrad on 08-31-2024 Urea nitrogen [Mass/Vol] 7 mg/dL 4-19 [facility] Sodium levelOrdered By: Nate Conrad on 08-31-2024 Sodium [Moles/Vol] 138 mmol/L 133-145 [facility] Squamous epithelial cells de tection in urine sediment by light microscopyOrdered By: Nate Conrad on 08-31-2024 Epithelial cells.squamous LM Ql (Urine sed) 0 SEEN /hpf 5-10 [facility] Urinalysis, Completeon 08-31 BACTERIA 1+ /hpf Normal None Seen [facility] Comment on above: Order Comment: CLEAN CATCH Performed By: #### L 400.0001 ####[facility] [address] [place], [place], [id number] RBC 10-25 SEEN Normal 0-5 [facility] Comment on above: Order Comment: CLEAN CATCH Performed By: #### L 400.0001 ####[facility] [address] [place], [address] WBC 10-25 SEEN Normal 0-5 [facility] Comment on above: Order Comment: CLEAN CATCH Performed By: #### L 400.0001 ####[facility] [address] [place], [address] EPI,SQUAMOUS 0 SEEN Normal 5-10 [facility] Comment on above: Order Comment: CLEAN CATCH Performed By: #### L 400.0001 ####[facility] [address] [place], [address] Mucus Ql (Urine sed) 0 SEEN Normal [facility] Comment on above: Order Comment: CLEAN CATCH Performed By: #### L 400.0001 ####[facility] [address] [place], [place], [address] Urine clarityOrdered By: Jad Conrad on 08-31-2024 Clarity (U) Cloudy Clear [facility] Urine color determinationOrd ered By: Nate Conrad on 08-31-2024 Color (U) Yellow Yellow [facility] Urine cultureOrdered By: Jad Conrad on 08-31-2024 Bacteria identified Cx Nom (U) Positive Abnormal [facility] Urine glucose detectionOrder ed By: Nate Conrad on 08-31-2024 Glucose Ql (U) 1000 mg/dl High Normal [facility] Urine leukocyte esterase det ection by dipstickOrdered By: Nate Conrad on 08-31-2024 Leukocyte esterase Test strip Ql (U) 100 /ul High Negative [facility] Urine pHOrdered By: Nate rick on 08-31-2024 pH (U) 6.0 [pH] 5.0 - 8.0 [facility] Urine sediment bacteria coun t by microscopy (number/high power field)Ordered By: Nate Conrad on 08-31-2024 Bacteria LM.HPF (Urine sed) [#/Area] 1 /[HPF] None Seen [facility] Urine specific gravity measu rementOrdered By: Nate Conrad on 08-31-2024 Specific gravity (U) [Rel density] 1.015 1.002-1.030 [facility] Urine urobilinogen measureme ntOrdered By: Nate Conrad on 05-19-2025 Urobilinogen Ql (U) 1 mg/dl High Normal [facility] White blood cell (WBC) count Ordered By: Nate Conrad on 08-31-2024 WBC (Bld) [#/Vol] 5.2 10*3/uL 4.4-11.0 [facility] White blood cell countOrdere d By: Nate Conrad on 08-31-2024 White blood cell count 10-25 SEEN /hpf 0-5 [facility] Urine Cultureon 08-30-2024 [facility] Mixed Gram Pos Gram Neg Org [place] Count 25,000-50,000 [facility] Mixed contaminants. Submit a new specimen if indicated. Normal [facility] Comment on above: Performed By: #### M 100.2200 ####[facility] [address] [place], [place], [id number] Absolute lymphocyte countOrd ered By: Monisha Doe on 08-29-2024 Lymphocytes Auto (Unsp spec) [#/Vol] 1.32 10*3/uL 0.83-4.51 [facility] Absolute neutrophil countOrd ered By: Monisha Doe on 08-29-2024 Neutrophils (Bld) [#/Vol] 3.6 10*3/uL 2.0-7.7 [facility] Anion gap in Serum or Plasma Ordered By: Monisha Doe on 08-29-2024 Anion gap [Moles/Vol] 12 mmol/L - [facility] Automated lymphocyte count a s percentage of total leukocytesOrdered By: Monisha Doe on 08-29-2024 Lymphocytes/100 WBC Auto (Unsp spec) 23.2 % [facility] BUN/creatinine ratioOrdered By: Monisha Doe on 08-29-2024 Urea nitrogen/Creatinine [Mass ratio] 17.3 mg/mg - [facility] Basic Metabolic Profile (BMP )on 08-29-2024 BUN/CRE 17.3 RATIO Normal 02-01 [facility] Comment on above: Performed By: #### L 500.2500, L501.6901 ####[facility] [address] [place], [address] Calcium [Mass/Vol] 9.2 mg/dL Normal 7.6-11.0 [facility] Comment on above: Performed By: #### L 500.2500, L501.6901 ####[facility] [address] [place], [address] Chloride [Moles/Vol] 102 mmol/L Normal 98-108 [facility] Comment on above: Performed By: #### L 500.2500, L501.6901 ####[facility] [address] [place], [address] CO2 [Moles/Vol] 24.5 mmol/L Normal 21.0-32.0 [facility] Comment on above: Performed By: #### L 500.2500, L501.6901 ####[facility] [address] [place], [address] Creatinine [Mass/Vol] 0.63 mg/dL Low 0.70-1.20 [facility] Comment on above: Performed By: #### L 500.2500, L501.6901 ####[facility] [address] [place], [address] ECRCL 100.82 ml/min Normal 50-250 [facility] Comment on above: Performed By: #### L 500.2500, L501.6901 ####[facility] [address] [place], [address] GAP 12 Normal 5-15 [facility] Comment on above: Performed By: #### L 500.2500, L501.6901 ####[facility] [address] [place], [address] GFR/1.73 sq M.predicted among non-blacks MDRD (S/P/Bld) [Vol rate/Area] 106 mL/min/{1.73_m2} Normal >60 [facility] Comment on above: Result Comment: mL/m in/1.73m2 CKD-EPI Creatinine Equation (2020) Performed By: #### L 500.2500, L501.6901 ####[facility] [address] [place], [address] Glucose [Mass/Vol] 332 mg/dL High 70-99 [facility] Comment on above: Performed By: #### L 500.2500, L501.6901 ####[facility] [address] [place], [address] Potassium [Moles/Vol] 3.4 mmol/L Normal 3.3-5.1 [facility] Comment on above: Result Comment: Hemo lysis present, Results??could be affected.?? Performed By: #### L 500.2500, L501.6901 ####[facility] [address] [place], [address] Sodium [Moles/Vol] 139 mmol/L Normal 133-145 [facility] Comment on above: Performed By: #### L 500.2500, L501.6901 ####[facility] [address] [place], [address] Urea nitrogen [Mass/Vol] 11 mg/dL Normal 4-19 [facility] Comment on above: Performed By: #### L 500.2500, L501.6901 ####[facility] [address] [place], [address] Basophil percentageOrdered B y: Monisha Archererson on 08-29-2024 Basophils/100 WBC (Bld) 0.7 % 0-1 [facility] Bedside Glucoseon 08-29-2024 FINGERSTICK GLU 317 mg/dL High 74-106 [facility] Comment on above: Result Comment: DELLA COX OF PATIENT CARE PER NURSING PROTOCOL Performed By: #### L 501.080 ####[facility] [address] [place], [address] Beta-Hydroxbytyrateon 2024 BETA-HYDROXYBUT 0.6 mmol/L Normal 0.0-0.3 [facility] Comment on above: Performed By: #### L 500.2500, L501.6901 ####[facility] [address] [place], [address] Beta-hydroxybutyrateOrdered By: Monisha Doe on 08-29-2024 Beta hydroxybutyrate [Mass/Vol] 0.6 mmol/L 0.0-0.3 [facility] Bilirubin Test strip Ql (U)O rdered By: Monisha Doe on 08-29-2024 Bilirubin Ql (U) Negative Negative [facility] CBC W/Diff, Automatedon 08-13 Absolute Lymph 1.32 X10 3/uL Normal 0.83-4.51 [facility] Comment on above: Performed By: #### L 100.0100 ####[facility] [address] [place], [address] Absolute Neut 3.6 X10 3/uL Normal 2.0-7.7 [facility] Comment on above: Performed By: #### L 100.0100 ####[facility] [address] [place], [address] Basophils/100 WBC (Bld) 0.7 % Normal 0-1 [facility] Comment on above: Performed By: #### L 100.0100 ####[facility] [address] [place], [address] Eosinophils/100 WBC (Bld) 3.7 % Normal 0-5 [facility] Comment on above: Performed By: #### L 100.0100 ####[facility] [address] [place], [address] Erythrocyte distribution width (RBC) [Ratio] 12.7 % Normal 11.6-14.6 [facility] Comment on above: Performed By: #### L 100.0100 ####[facility] [address] [place], [address] Hematocrit (Bld) [Volume fraction] 43.6 % Normal 37-47 [facility] Comment on above: Performed By: #### L 100.0100 ####[facility] [address] [place], [address] Hemoglobin (Bld) [Mass/Vol] 15.0 g/dL Normal 12.0-15.0 [facility] Comment on above: Performed By: #### L 100.0100 ####[facility] [address] [place], [address] IG% 0.400 Normal 0.0-0.9 [facility] Comment on above: Result Comment: IG% - Immature Granulocytes (promyelocytes, myelocytes andmetamyelocytes) > 1% indicates that a LEFT SHIFT is Present. Performed By: #### L 100.0100 ####[facility] [address] [place], [address] Lymphocytes/100 WBC (Bld) 23.2 % Normal 19-41 [facility] Comment on above: Performed By: #### L 100.0100 ####[facility] [address] [place], [address] MCH (RBC) [Entitic mass] 28.5 pg Normal 27.0-32.0 [facility] Comment on above: Performed By: #### L 100.0100 ####[facility] [address] [place], [address] MCHC (RBC) [Mass/Vol] 34.4 g/dL Normal 32-36 [facility] Comment on above: Performed By: #### L 100.0100 ####[facility] [address] [place], [address] MCV (RBC) [Entitic vol] 82.9 fL Normal 81-99 [facility] Comment on above: Performed By: #### L 100.0100 ####[facility] [address] [place], [address] Monocytes/100 WBC (Bld) 8.1 % Normal 0-10 [facility] Comment on above: Performed By: #### L 100.0100 ####[facility] [address] [place], [address] Neutrophils/100 WBC (Bld) 63.9 % Normal 47-70 [facility] Comment on above: Performed By: #### L 100.0100 ####[facility] [address] [place], [address] Nucleated RBC (Bld) [#/Vol] 0 10*3/uL Normal 0-5 [facility] Comment on above: Performed By: #### L 100.0100 ####[facility] [address] [place], [address] Platelet mean volume (Bld) [Entitic vol] 11.7 fL Normal 6.2-12.0 [facility] Comment on above: Performed By: #### L 100.0100 ####[facility] [address] [place], [address] Platelets (Bld) [#/Vol] 179 10*3/uL Normal 150-450 [facility] Comment on above: Performed By: #### L 100.0100 ####[facility] [address] [place], [address] RBC (Bld) [#/Vol] 5.26 10*6/uL Normal 4.2-5.4 [facility] Comment on above: Performed By: #### L 100.0100 ####[facility] [address] [place], [address] RDW SD 38.2 fl Normal 35.1-43.9 [facility] Comment on above: Performed By: #### L 100.0100 ####[facility] [address] [place], [place], [address] WBC (Bld) [#/Vol] 5.7 10*3/uL Normal 4.4-11.0 [facility] Comment on above: Performed By: #### L 100.0100 ####[facility] [address] [place], [place], [id number] Carbon dioxide, total [Moles /volume] in Central venous bloodOrdered By: Monisha Doe on 08-29-2024 CO2 [Moles/Vol] 24.5 mmol/L 21.0-32.0 [facility] Chest PA and Lateralon 08-29 Chest PA and Lateral Normal [facility] Chloride assayOrdered By: Eva Doe on 08-29-2024 Chloride [Moles/Vol] 102 mmol/L 98-108 [facility] Emergency Department Summary on 08-29-2024 Emergency Department Summary Normal [facility] Eosinophil percentageOrdered By: Monisha Doe on 08-29-2024 Eosinophils/100 WBC (Bld) 3.7 % 0-5 [facility] Erythrocyte distribution wid th ratioOrdered By: Monisha Doe on 08-29-2024 Erythrocyte distribution width (RBC) [Ratio] 12.7 % 11.6-14.6 [facility] Erythrocyte distribution wid th standard deviationOrdered By: Monisha Doe on 08-29-2024 Erythrocyte distribution width (RBC) [Ratio] 38.2 fl 35.1-43.9 [facility] Glomerular filtration rate ( GFR) estimation/1.73 sq m using serum, plasma, or whole bOrdered By: Monisha Doe on 08-29-2024 GFR/1.73 sq M.predicted among non-blacks MDRD (S/P/Bld) [Vol rate/Area] 106 mL/min/{1.73_m2} >60 [facility] Comment on above: mL/min/1.73m2 CKD-EP I Creatinine Equation (2020) [facility] deOrdered By: Beau Gonzalez on 08-29-2024 Glucose [Mass/Vol] 317 mg/dL High 74-106 [facility] Comment on above: MANAGEMENT OF PATIEN T CARE PER NURSING PROTOCOL Hematocrit Auto (Bld) [Volum e fraction]Ordered By: Monisha Doe on 08-29-2024 Hematocrit (Bld) [Volume fraction] 43.6 % 37-47 [facility] Hemoglobin measurementOrdere d By: Monisha Doe on 08-29-2024 Hemoglobin (Bld) [Mass/Vol] 15.0 g/dL 12.0-15.0 [facility] Immature granulocytes/100 WB C Auto (Bld)Ordered By: Monisha Doe on 08-29-2024 Immature granulocytes/100 WBC (Bld) 0.400 % 0.0-0.9 [facility] Comment on above: IG% - Immature Granu locytes (promyelocytes, myelocytes and metamyelocytes) > 1% indicates that a LEFT SHIFT is Present. Ketones Test strip Ql (U)Ord ered By: Monisha Doe on 08-29-2024 Ketones Ql (U) Negative Negative [facility] MCV (mean corpuscular volume ) determinationOrdered By: Monisha Doe on 08-29-2024 MCV (RBC) [Entitic vol] 82.9 fL 81-99 [facility] Mean corpuscular hemoglobin (MCH) determinationOrdered By: Monisha Doe on 08-29-2024 MCH (RBC) [Entitic mass] 28.5 pg 27.0-32.0 [facility] Mean corpuscular hemoglobin concentration (MCHC) determinationOrdered By: Monisha Doe on 08-29-2024 MCHC (RBC) [Mass/Vol] 34.4 g/dL 32-36 [facility] Mean platelet volume determi nationOrdered By: Monisha Doe on 08-29-2024 Platelet mean volume (Bld) [Entitic vol] 11.7 fL 6.2-12.0 [facility] Microscopic analysis of urin e for red blood cells (RBC)Ordered By: Monisha Doe on 08-29-2024 Microscopic analysis of urine for red blood cells (RBC) 0-5 SEEN /hpf 0-5 [facility] Monocyte percentageOrdered B y: Monisha Doe on 08-29-2024 Monocytes/100 WBC (Bld) 8.1 % 0-10 [facility] Mucus LM Ql (Urine sed)Order ed By: Monisha oDe on 08-29-2024 Mucus Ql (Urine sed) 0 SEEN /hpf [facility] Neutrophil percentageOrdered By: Monisha Doe on 08-29-2024 Neutrophils/100 WBC (Bld) 63.9 % 47-70 [facility] Nitrite Test strip Ql (U)Ord ered By: Monisha Doe on 08-29-2024 Nitrite Ql (U) Negative Negative [facility] Nucleated red blood cell per centageOrdered By: Monisha Doe on 08-29-2024 Nucleated RBC/100 WBC (Bld) [Ratio] 0 % 0-5 [facility] Platelet countOrdered By: Eva Doe on 08-29-2024 Platelets (Bld) [#/Vol] 179 10*3/uL 150-450 [facility] Potassium measurement (mass/ volume)Ordered By: Monisha Doe on 08-29-2024 Potassium (Unsp spec) [Mass/Vol] 3.4 mmol/L 3.3-5.1 [facility] Comment on above: Hemolysis present, R esults could be affected. Protein Test strip Ql (U)Ord ered By: Monisha Doe on 08-29-2024 Protein Ql (U) 15 mg/dl High Negative [facility] RBC Auto (Bld) [#/Vol]Ordere d By: Monisha Doe on 08-29-2024 RBC (Bld) [#/Vol] 5.26 10*6/uL 4.2-5.4 [facility] Serum creatinine measurement (mass/volume)Ordered By: Monisha Doe on 08-29-2024 Creatinine [Mass/Vol] 0.63 mg/dL Low 0.70-1.20 [facility] Serum glucose measurement (m ass/volume)Ordered By: Monisha Doe on 08-29-2024 Glucose [Mass/Vol] 332 mg/dL High 70-99 [facility] Serum or plasma calcium anna urement (mass/volume)Ordered By: Monisha Doe on 08-29-2024 Calcium [Mass/Vol] 9.2 mg/dL 7.6-11.0 [facility] Serum or plasma urea nitroge n measurement (mass/volume)Ordered By: Monisha Doe on 08-29-2024 Urea nitrogen [Mass/Vol] 11 mg/dL 4-19 [facility] Sodium levelOrdered By: Serge Doe on 08-29-2024 Sodium [Moles/Vol] 139 mmol/L 133-145 [facility] Squamous epithelial cells de tection in urine sediment by light microscopyOrdered By: Monisha Doe on 08-29-2024 Epithelial cells.squamous LM Ql (Urine sed) 25-50 SEEN /hpf - [facility] Urinalysis, Completeon 08-29 BACTERIA 2+ /hpf Normal None Seen [facility] Comment on above: Order Comment: CLEAN CATCH Performed By: #### L 400.0001 ####[facility] [address] [place], [place], [address](205) YEAST 1+ /hpf Normal None Seen [facility] Comment on above: Order Comment: CLEAN CATCH Performed By: #### L 400.0001 ####[facility] [address] [place], [address] EPI,SQUAMOUS 25-50 SEEN Normal 08-22 [facility] Comment on above: Order Comment: CLEAN CATCH Performed By: #### L 400.0001 ####[facility] [address] [place], [address] RBC 0-5 SEEN Normal 0-5 [facility] Comment on above: Order Comment: CLEAN CATCH Performed By: #### L 400.0001 ####[facility] [address] [place], [address] WBC 25-50 SEEN Normal 0-5 [facility] Comment on above: Order Comment: CLEAN CATCH Performed By: #### L 400.0001 ####[facility] [address] [place], [address] Mucus Ql (Urine sed) 0 SEEN Normal [facility] Comment on above: Order Comment: CLEAN CATCH Performed By: #### L 400.0001 ####[facility] [address] [place], [address] Urine clarityOrdered By: Michael Doe on 08-29-2024 Clarity (U) Cloudy Clear [facility] Urine color determinationOrd ered By: Monisha Doe on 08-29-2024 Color (U) Yellow Yellow [facility] Urine cultureOrdered By: Hugh Gonzalez on 08-29-2024 Bacteria identified Cx Nom (U) Mixed Gram Pos & Gram Neg Org Abnormal [facility] Urine glucose detectionOrder ed By: Monisha Doe on 08-29-2024 Glucose Ql (U) 1000 mg/dl High Normal [facility] Urine leukocyte esterase det ection by dipstickOrdered By: Monisha Doe on 08-29-2024 Leukocyte esterase Test strip Ql (U) 500 /ul High Negative [facility] Urine pHOrdered By: Jackie Doe on 08-29-2024 pH (U) 6.0 [pH] 5.0 - 8.0 [facility] Urine sediment bacteria coun t by microscopy (number/high power field)Ordered By: Monisha Doe on 08-29-2024 Bacteria LM.HPF (Urine sed) [#/Area] 2 /[HPF] None Seen [facility] Urine sediment yeast count b y microscopy (number/high powered field)Ordered By: Monisha Doe on 08-29-2024 Yeast LM.HPF (Urine sed) [#/Area] 1 /[HPF] None Seen [facility] Urine specific gravity measu rementOrdered By: Monisha Doe on 08-29-2024 Specific gravity (U) [Rel density] 1.010 1.002-1.030 [facility] Urine urobilinogen measureme ntOrdered By: Mnoisha Doe on 08-29-2024 Urobilinogen Ql (U) Normal mg/dl Normal [facility] White blood cell (WBC) count Ordered By: Monisha Doe on 08-29-2024 WBC (Bld) [#/Vol] 5.7 10*3/uL 4.4-11.0 [facility] White blood cell countOrdere d By: Monisha Doe on 08-29-2024 White blood cell count 25-50 SEEN /hpf 0-5 [facility] ECG 12 leadOrdered By: Josiah Bustillos on 08-17-2024 Atrial Rate 138 BPM [facility] Work Phone: [phone] P Fisher 47 degrees [facility] Work Phone: [phone] P Offset 200 ms [facility] Work Phone: P Onset 151 ms [facility] Work Phone: AL Interval 146 ms [facility] Work Phone: Q Onset 224 ms [facility] Work Phone: QRS Count 23 beats [facility] Work Phone: QRS Duration 72 ms [facility] Work Phone: QT Interval 280 ms [facility] Work Phone: QTC Calculation(Bazett) 424 ms [facility] Work Phone: QTC Fredericia 369 ms [facility] Work Phone: R Fisher 54 degrees [facility] Work Phone: T Fisher 93 degrees [facility] Work Phone: T Offset 364 ms [facility] Work Phone: Ventricular Rate 138 BPM [facility] Work Phone: [facility] Work Phone: ECG 12 leadon 08-17-2024 Sinus tachycardia Septal infarct (cited on or before 29-JUN-2024) Abnormal ECG Confirmed by Сергей Bustillos ([id number]) on 08/17/2024 4:33:25 PM Сергей Meade MD - 08/17/2024 Sinus tachycardia Septal infarct (cited on or before 29-JUN-2024) Abnormal ECG Confirmed by Сергей Bustillos ([id number]) on 08/17/2024 4:33:25 PM [facility] Work Phone: Basic Metabolic Panelon 04-0 Anion gap [Moles/Vol] 10 mmol/L Normal 9-15 [facility] Comment on above: Order Comment: CALL doctor L0314 tel. [phone], FAX [phone] CALL doctor L0314 tel. [phone], FAX [phone] Performed By: #### B MP #### [facility] [address] [place] [address] Calcium [Mass/Vol] 9.1 mg/dL Normal 8.5-9.9 [facility] Comment on above: Order Comment: CALL doctor L0314 tel. [phone], FAX [phone] CALL doctor L0314 tel. [phone], FAX [phone] Performed By: #### B MP #### [facility] [address] [place] [address] Chloride [Moles/Vol] 101 mmol/L Normal 95-107 [facility] Comment on above: Order Comment: CALL doctor L0314 tel. [phone], FAX [phone] CALL doctor L0314 tel. [phone], FAX [phone] Performed By: #### B MP #### [facility] [address] [place] [address] CO2 [Moles/Vol] 29 mmol/L Normal 20-31 [facility] Comment on above: Order Comment: CALL doctor L0314 tel. [phone], FAX [phone] CALL doctor L0314 tel. [phone], FAX [phone] Performed By: #### B MP #### [facility] [address] [place] [address] Creatinine [Mass/Vol] 0.68 mg/dL Normal 0.50-0.90 [facility] Comment on above: Order Comment: CALL doctor L0314 tel. [phone], FAX [phone] CALL doctor L0314 tel. [phone], FAX [phone] Performed By: #### B MP #### [facility] [address] [place] [address] GFR >90.0 Normal >60 [facility] Comment on above: Order Comment: CALL doctor L0314 tel. [phone], FAX [phone] CALL doctor L0314 tel. [phone], FAX [phone] Result Comment: Mirela atric calculator link https://www.kidney.org/professionals/kdoqi/gfr_calculatorped [...] secretion. Performed By: #### B MP #### [facility] [address] [place] [address] Glucose [Mass/Vol] 429 mg/dL Critically high 70-99 [facility] Comment on above: Order Comment: CALL doctor L0314 tel. [phone], FAX [phone] CALL doctor L0314 tel. [phone], FAX [phone] Performed By: #### B MP #### [facility] [address] [place] [address] Potassium [Moles/Vol] 4.6 mmol/L Normal 3.4-4.9 [facility] Comment on above: Order Comment: CALL doctor L0314 tel. [phone], FAX [phone] CALL doctor L0314 tel. [phone], FAX [phone] Performed By: #### B MP #### [facility] [address] [place] [address] Sodium [Moles/Vol] 140 mmol/L Normal 135-144 [facility] Comment on above: Order Comment: CALL doctor L0314 tel. [phone], FAX [phone] CALL doctor L0314 tel. [phone], FAX [phone] Performed By: #### B MP #### [facility] [address] [place] [address] Urea nitrogen [Mass/Vol] 19 mg/dL Normal 6-20 [facility] Comment on above: Order Comment: CALL doctor L0314 tel. [phone], FAX [phone] CALL doctor L0314 tel. [phone], FAX [phone] Performed By: #### B MP #### [facility] [address] [place] [address] CBC With Platelet and Differ entialon 07-17-2024 Basophils (Bld) [#/Vol] 0.0 10*3/uL Normal 0.0-0.2 [facility] Comment on above: Order Comment: CALL doctor L0314 tel. [phone], FAX [phone] CALL doctor L0314 tel. [phone], FAX [phone] Performed By: #### C BCWD #### [facility] [address] [place] [address] Basophils/100 WBC (Bld) 0.9 % Normal [facility] Comment on above: Order Comment: CALL doctor L0314 tel. [phone], FAX [phone] CALL doctor L0314 tel. [phone], FAX [phone] Performed By: #### C BCWD #### [facility] [address] [place] [address] Eosinophils (Bld) [#/Vol] 0.1 10*3/uL Normal 0.0-0.7 [facility] Comment on above: Order Comment: CALL doctor L0314 tel. [phone], FAX [phone] CALL doctor L0314 tel. [phone], FAX [phone] Performed By: #### C BCWD #### [facility] [address] [place] [address] Eosinophils/100 WBC (Bld) 2.4 % Normal [facility] Comment on above: Order Comment: CALL doctor L0314 tel. [phone], FAX [phone] CALL doctor L0314 tel. [phone], FAX [phone] Performed By: #### C BCWD #### [facility] [address] [place] [address] Erythrocyte distribution width (RBC) [Ratio] 13.3 % Normal 11.5-14.5 [facility] Comment on above: Order Comment: CALL doctor L0314 tel. [phone], FAX [phone] CALL doctor L0314 tel. [phone], FAX [phone] Performed By: #### C BCWD #### [facility] [address] [place] [address] Hematocrit (Bld) [Volume fraction] 39.9 % Normal 37.0-47.0 [facility] Comment on above: Order Comment: CALL doctor L0314 tel. [phone], FAX [phone] CALL doctor L0314 tel. [phone], FAX [phone] Performed By: #### C BCWD #### [facility] [address] [place] [address] Hemoglobin (Bld) [Mass/Vol] 12.8 g/dL Normal 12.0-16.0 [facility] Comment on above: Order Comment: CALL doctor L0314 tel. [phone], FAX [phone] CALL doctor L0314 tel. [phone], FAX [phone] Performed By: #### C BCWD #### [facility] [address] [place] [address] Lymphocytes (Bld) [#/Vol] 1.2 10*3/uL Normal 1.0-4.8 [facility] Comment on above: Order Comment: CALL doctor L0314 tel. [phone], FAX [phone] CALL doctor L0314 tel. [phone], FAX [phone] Performed By: #### C BCWD #### [facility] [address] [place] [address] Lymphocytes/100 WBC (Bld) 27.1 % Normal [facility] Comment on above: Order Comment: CALL doctor L0314 tel. [phone], FAX [phone] CALL doctor L0314 tel. [phone], FAX [phone] Performed By: #### C BCWD #### [facility] [address] [place] [address] MCH (RBC) [Entitic mass] 27.7 pg Normal 27.0-31.3 [facility] Comment on above: Order Comment: CALL doctor L0314 tel. [phone], FAX [phone] CALL doctor L0314 tel. [phone], FAX [phone] Performed By: #### C BCWD #### [facility] [address] [place] [address] MCHC 32.1 % Low 33.0-37.0 [facility] Comment on above: Order Comment: CALL doctor L0314 tel. [phone], FAX [phone] CALL doctor L0314 tel. [phone], FAX [phone] Performed By: #### C BCWD #### [facility] [address] [place] [address] MCV (RBC) [Entitic vol] 86.4 fL Normal 79.4-94.8 [facility] Comment on above: Order Comment: CALL doctor L0314 tel. [phone], FAX [phone] CALL doctor L0314 tel. [phone], FAX [phone] Performed By: #### C BCWD #### [facility] [address] [place] [address] Monocytes (Bld) [#/Vol] 0.5 10*3/uL Normal 0.2-0.8 [facility] Comment on above: Order Comment: CALL doctor L0314 tel. [phone], FAX [phone] CALL doctor L0314 tel. [phone], FAX [phone] Performed By: #### C BCWD #### [facility] [address] [place] [address] Monocytes/100 WBC (Bld) 11.8 % Normal [facility] Comment on above: Order Comment: CALL doctor L0314 tel. [phone], FAX [phone] CALL doctor L0314 tel. [phone], FAX [phone] Performed By: #### C BCWD #### [facility] [address] [place] [address] Neutrophils (Bld) [#/Vol] 2.5 10*3/uL Normal 1.4-6.5 [facility] Comment on above: Order Comment: CALL doctor L0314 tel. [phone], FAX [phone] CALL doctor L0314 tel. [phone], FAX [phone] Performed By: #### C BCWD #### [facility] [address] [place] [address] Neutrophils/100 WBC (Bld) 56.2 % Normal [facility] Comment on above: Order Comment: CALL doctor L0314 tel. [phone], FAX [phone] CALL doctor L0314 tel. [phone], FAX [phone] Performed By: #### C BCWD #### [facility] [address] [place] [address] Platelets (Bld) [#/Vol] 283 10*3/uL Normal 130-400 [facility] Comment on above: Order Comment: CALL doctor L0314 tel. [phone], FAX [phone] CALL doctor L0314 tel. [phone], FAX [phone] Performed By: #### C BCWD #### [facility] [address] [place] [address] RBC (Bld) [#/Vol] 4.62 10*6/uL Normal 4.20-5.40 [facility] Comment on above: Order Comment: CALL doctor L0314 tel. [phone], FAX [phone] CALL doctor L0314 tel. [phone], FAX [phone] Performed By: #### C BCWD #### [facility] [address] [place] [address] WBC (Bld) [#/Vol] 4.5 10*3/uL Low 4.8-10.8 [facility] Comment on above: Order Comment: CALL doctor L0314 tel. [phone], FAX [phone] CALL doctor L0314 tel. [phone], FAX [phone] Performed By: #### C BCWD #### [facility] [address] [place] [address] Magnesiumon 07-17-2024 Magnesium [Mass/Vol] 2.0 mg/dL Normal 1.7-2.4 [facility] Comment on above: Order Comment: CALL doctor L0314 tel. [phone], FAX [phone] CALL doctor L0314 tel. [phone], FAX [phone] Performed By: #### M G #### [facility] [address] [place] [address] Glucose Test strip manual (B ld) [Mass/Vol]on 07-13-2024 Glucose [Mass/Vol] 252 mg/dL High [address] [place] [address] Comment on above: Result Comment: GOLD LEIVA Performed By: #### 2 4323-8 #### [facility] (36075[facility] [address] [place] [address] Glucose [Mass/Vol] 260 mg/dL High [address] [place] [address] Comment on above: Performed By: #### 2 432-8 #### [facility] (23718) [facility] ([facility] [address] [place] [address] Glucose Test strip manual (B ld) [Mass/Vol]on 07-12-2024 Glucose [Mass/Vol] 351 mg/dL High [address] [place] [address] Comment on above: Performed By: #### 2 4323-8 #### [facility] (66174) [facility] ([facility] [address] [place] [address] Glucose [Mass/Vol] 246 mg/dL High [address] [place] [address] Comment on above: Performed By: #### 2 4323-8 #### [facility] (64292) [facility] ([facility] [address] [place] [address] Glucose [Mass/Vol] 347 mg/dL [address] Comment on above: Performed By: #### 2 4323-8 #### [facility] (64465) [facility] ([facility] [address] [place] [address] Glucose [Mass/Vol] 250 mg/dL High [address] [place] [address] Comment on above: Performed By: #### 2 4323-8 #### [facility] (74351) [facility] ([facility] [address] [place] [address] Basic metabolic 2000 panelon 07-11-2024 Anion gap [Moles/Vol] 11 mmol/L Normal 10-20 [facility] Comment on above: Performed By: #### 2 4323-8 #### [facility] (09752) [facility] ([facility] [address] [place] [address] Calcium [Mass/Vol] 8.5 mg/dL Low 8.6-10.3 [facility] Comment on above: Performed By: #### 2 4323-8 #### [facility] (06140) [facility] ([facility] [address] [place] [address] Chloride [Moles/Vol] 104 mmol/L Normal 98-107 [facility] Comment on above: Performed By: #### 2 4323-8 #### [facility] (29509) [facility] ([facility] [address] [place] [address] CO2 [Moles/Vol] 26 mmol/L Normal 21-32 [facility] Comment on above: Performed By: #### 2 4323-8 #### [facility] (75959) [facility] ([facility] [address] [place] [address] Creatinine [Mass/Vol] 0.45 mg/dL Low 0.50-1.05 [facility] Comment on above: Performed By: #### 2 4323-8 #### [facility] (45160) [facility] ([facility] [address] [place] [address] GFR/1.73 sq M.predicted MDRD (S/P/Bld) [Vol rate/Area] mL/min/{1.73_m2} Normal >60 [facility] Comment on above: Result Comment: Calc ulations of estimated GFR are performed using the 2020 CKD-EPI Study Refit equation without the race variable for the IDMS-Traceable creatinine methods. https://jasn.asnjournals.org/content/early//ASN.956578 3750 Performed By: #### 2 4323-8 #### [facility] (93274) [facility] ([facility] [address] [place] [address] Glucose [Mass/Vol] 251 mg/dL High 74-99 [facility] Comment on above: Performed By: #### 2 4323-8 #### [facility] (46236) [facility] ([facility] [address] [place] [address] Potassium [Moles/Vol] 4.2 mmol/L Normal 3.5-5.3 [facility] Comment on above: Result Comment: MILD HEMOLYSIS DETECTED. The result may be falsely elevated due to hemolysis or other interferents. Clinical correlation is recommended. Repeat testing may be considered. Performed By: #### 2 3-8 #### [facility] (93779) [facility] ([facility] [address] [place] [id number] Sodium [Moles/Vol] 137 mmol/L Normal 136-145 [facility] Comment on above: Performed By: #### 2 4322-8 #### [facility] (64251) [facility] ([facility] [address] [place] [id number] Urea nitrogen [Mass/Vol] 19 mg/dL Normal 6-23 [facility] Comment on above: Performed By: #### 2 4322-8 #### [facility] (30720) [facility] ([facility] [address] [place] [id number] CBC panel Auto (Bld)on 07-11 Erythrocyte distribution width (RBC) [Ratio] 13.3 % Normal 11.5-14.5 [facility] Comment on above: Performed By: #### 2 3-8 #### [facility] (45806) [facility] ([facility] [address] [place] [address] Hematocrit (Bld) [Volume fraction] 38.3 % Normal 36.0-46.0 [facility] Comment on above: Performed By: #### 2 3-8 #### [facility] (06782) [facility] ([facility] [address] [place] [id number] Hemoglobin (Bld) [Mass/Vol] 12.1 g/dL Normal 12.0-16.0 [facility] Comment on above: Performed By: #### 2 4322-8 #### [facility] (33513) [facility] ([facility] [address] [place] [address] MCH (RBC) [Entitic mass] 27.3 pg Normal 26.0-34.0 [facility] Comment on above: Performed By: #### 2 4322-8 #### [facility] (87210) [facility] ([facility] [address] [place] [address] MCHC (RBC) [Mass/Vol] 31.6 g/dL Low 32.0-36.0 [facility] Comment on above: Performed By: #### 2 4322-8 #### [facility] (76820) [facility] ([facility] [address] [place] [id number] MCV (RBC) [Entitic vol] 87 fL Normal 80-100 [facility] Comment on above: Performed By: #### 2 4322-8 #### [facility] (37800) [facility] ([facility] [address] [place] [id number] Nucleated RBC/100 WBC (Bld) [Ratio] 0.0 /100 WBCs Normal 0.0-0.0 [facility] Comment on above: Performed By: #### 2 4322-8 #### [facility] (98765) [facility] ([facility] [address] [place] [id number] Platelets (Bld) [#/Vol] 277 x10*3/uL Normal 150-450 [facility] Comment on above: Performed By: #### 2 4322-8 #### [facility] (11934) [facility] ([facility] [address] [place] [address] RBC (Bld) [#/Vol] 4.43 x10*6/uL Normal 4.00-5.20 [facility] Comment on above: Performed By: #### 2 4322-8 #### [facility] (04483) [facility] ([facility] [address] [place] [address] WBC (Bld) [#/Vol] 8.5 x10*3/uL Normal 4.4-11.3 [facility] Comment on above: Performed By: #### 2 4323-8 #### [facility] (45152) [facility] ([facility] [address] [place] [address] Glucose Test strip manual (B ld) [Mass/Vol]on 07-11-2024 Glucose [Mass/Vol] 373 mg/dL [address] Comment on above: Performed By: #### 2 3-8 #### [facility] (94868) [facility] ([facility] [address] [place] [address] Glucose [Mass/Vol] 237 mg/dL [address] Comment on above: Performed By: #### 2 4322-8 #### [facility] (85145) [facility] ([facility] [address] [place] [address] Glucose [Mass/Vol] 296 mg/dL [address] Comment on above: Performed By: #### 2 432-8 #### [facility] (96542) [facility] ([facility] [address] [place] [address] Glucose [Mass/Vol] 245 mg/dL [address] Comment on above: Performed By: #### 2 4323-8 #### [facility] (96670) [facility] ([facility] [address] [place] [address] Glucose Test strip manual (B ld) [Mass/Vol]on 07-10-2024 Glucose [Mass/Vol] 335 mg/dL High [address] [place] [address] Comment on above: Performed By: #### 2 4323-8 #### [facility] (94613) [facility] [address] [place] [address] Glucose [Mass/Vol] 255 mg/dL High 74-99 [facility] Comment on above: Performed By: #### 2 432-8 #### [facility] (16767) [facility] ([facility] [address] [place] [address] Glucose [Mass/Vol] 288 mg/dL High [address] [place] [address] Comment on above: Performed By: #### 2 4323-8 #### [facility] (65967) [facility] ([facility] [address] [place] [address] Glucose [Mass/Vol] 267 mg/dL High [address] [place] [address] Comment on above: Performed By: #### 2 4322-8 #### [facility] (40769) [facility] ([facility] [address] [place] [address] CBC panel Auto (Bld)on 07-09 Erythrocyte distribution width (RBC) [Ratio] 13.6 % Normal 11.5-14.5 [facility] Comment on above: Performed By: #### 2 4322-8 #### [facility] (54873) [facility] ([facility] [address] [place] [address] Hematocrit (Bld) [Volume fraction] 40.9 % Normal 36.0-46.0 [facility] Comment on above: Performed By: #### 2 4322-8 #### [facility] (92817) [facility] ([facility] [address] [place] [address] Hemoglobin (Bld) [Mass/Vol] 13.4 g/dL Normal 12.0-16.0 [facility] Comment on above: Performed By: #### 2 4322-8 #### [facility] (12355) [facility] ([facility] [address] [place] [address] MCH (RBC) [Entitic mass] 28.2 pg Normal 26.0-34.0 [facility] Comment on above: Performed By: #### 2 4322-8 #### [facility] (34827) [facility] ([facility] [address] [place] [address] MCHC (RBC) [Mass/Vol] 32.8 g/dL Normal 32.0-36.0 [facility] Comment on above: Performed By: #### 2 432-8 #### [facility] (07024) [facility] ([facility] [address] [place] [id number] MCV (RBC) [Entitic vol] 86 fL Normal 80-100 [facility] Comment on above: Performed By: #### 2 432-8 #### [facility] (55753) [facility] ([facility] [address] [place] [id number] Nucleated RBC/100 WBC (Bld) [Ratio] 0.0 /100 WBCs Normal 0.0-0.0 [facility] Comment on above: Performed By: #### 2 432-8 #### [facility] (80502) [facility] ([facility] [address] [place] [address] Platelets (Bld) [#/Vol] 304 x10*3/uL Normal 150-450 [facility] Comment on above: Performed By: #### 2 432-8 #### [facility] (11482) [facility] ([facility] [address] [place] [address] RBC (Bld) [#/Vol] 4.76 x10*6/uL Normal 4.00-5.20 [facility] Comment on above: Performed By: #### 2 432-8 #### [facility] (55143) [facility] ([facility] [address] [place] [address] WBC (Bld) [#/Vol] 13.4 x10*3/uL High 4.4-11.3 [facility] Comment on above: Performed By: #### 2 4323-8 #### [facility] (99994) [facility] ([facility] [address] [place] [address] Comprehensive metabolic 2000 panelon 07-09-2024 Albumin BCP dye [Mass/Vol] 3.1 g/dL Low 3.4-5.0 [facility] Comment on above: Performed By: #### 2 4323-8 #### [facility] (21874) [facility] ([facility] [address] [place] [address] ALP [Catalytic activity/Vol] 246 U/L High 33-110 [facility] Comment on above: Performed By: #### 2 4323-8 #### [facility] (50840) [facility] ([facility] [address] [place] [address] ALT With P-5'-P [Catalytic activity/Vol] 41 U/L Normal 7-45 [facility] Comment on above: Result Comment: Camila ents treated with Sulfasalazine may generate falsely decreased results for ALT. Performed By: #### 2 4323-8 #### [facility] (90444) [facility] ([facility] [address] [place] [address] Anion gap [Moles/Vol] 10 mmol/L Normal 10-20 [facility] Comment on above: Performed By: #### 2 432-8 #### [facility] (23371) [facility] ([facility] [address] [place] [address] AST With P-5'-P [Catalytic activity/Vol] 22 U/L Normal 9-39 [facility] Comment on above: Performed By: #### 2 4323-8 #### [facility] (87223) [facility] ([facility] [address] [place] [address] Bilirubin [Mass/Vol] 0.5 mg/dL Normal 0.0-1.2 [facility] Comment on above: Performed By: #### 2 4323-8 #### [facility] (77459) [facility] ([facility] [address] [place] [address] Calcium [Mass/Vol] 8.9 mg/dL Normal 8.6-10.3 [facility] Comment on above: Performed By: #### 2 4323-8 #### [facility] (53867) [facility] ([facility] [address] [place] [address] Chloride [Moles/Vol] 101 mmol/L Normal 98-107 [facility] Comment on above: Performed By: #### 2 4323-8 #### [facility] (28015) [facility] ([facility] [address] [place] [address] CO2 [Moles/Vol] 30 mmol/L Normal 21-32 [facility] Comment on above: Performed By: #### 2 4323-8 #### [facility] (82615) [facility] ([facility] [address] [place] [address] Creatinine [Mass/Vol] 0.43 mg/dL Low 0.50-1.05 [facility] Comment on above: Performed By: #### 2 4323-8 #### [facility] (07437) [facility] ([facility] [address] [place] [address] GFR/1.73 sq M.predicted MDRD (S/P/Bld) [Vol rate/Area] mL/min/{1.73_m2} Normal >60 [facility] Comment on above: Result Comment: Calc ulations of estimated GFR are performed using the 2020 CKD-EPI Study Refit equation without the race variable for the IDMS-Traceable creatinine methods. https://jasn.asnjournals.org/content/early/ASN.308946 8565 Performed By: #### 2 4323-8 #### [facility] (55217) [facility] ([facility] [address] [place] [address] Glucose [Mass/Vol] 286 mg/dL High 74-99 [facility] Comment on above: Performed By: #### 2 4323-8 #### [facility] (09830) [facility] ([facility] [address] [place] [address] Potassium [Moles/Vol] 4.1 mmol/L Normal 3.5-5.3 [facility] Comment on above: Performed By: #### 2 4323-8 #### [facility] (90282) [facility] ([facility] [address] [place] [address] Protein [Mass/Vol] 6.3 g/dL Low 6.4-8.2 [facility] Comment on above: Performed By: #### 2 4323-8 #### [facility] (00074) [facility] ([facility] [address] [place] [address] Sodium [Moles/Vol] 137 mmol/L Normal 136-145 [facility] Comment on above: Performed By: #### 2 4322-8 #### [facility] (89150) [facility] ([facility] [address] [place] [address] Urea nitrogen [Mass/Vol] 22 mg/dL Normal 6-23 [facility] Comment on above: Performed By: #### 2 432-8 #### [facility] (07234) [facility] ([facility] [address] [place] [address] Glucose Test strip manual (B ld) [Mass/Vol]on 07-09-2024 Glucose [Mass/Vol] 277 mg/dL High 74-99 [facility] Comment on above: Performed By: #### 2 4323-8 #### [facility] (74450) [facility] ([facility] [address] [place] [address] Glucose [Mass/Vol] 243 mg/dL High 74-99 [facility] Comment on above: Performed By: #### 2 4323-8 #### [facility] (17925) [facility] ([facility] [address] [place] [address] Glucose [Mass/Vol] 254 mg/dL High 74-99 [facility] Comment on above: Performed By: #### 2 3-8 #### [facility] (05365) [facility] ([facility] [address] [place] [address] Glucose [Mass/Vol] 283 mg/dL High 74-99 [facility] Comment on above: Performed By: #### 2 4322-8 #### [facility] (19155) [facility] ([facility] [address] [place] [address] CBC panel Auto (Bld)on 07-08 Erythrocyte distribution width (RBC) [Ratio] 13.8 % Normal 11.5-14.5 [facility] Comment on above: Performed By: #### 2 4322-8 #### [facility] (59862) [facility] ([facility] [address] [place] [address] Hematocrit (Bld) [Volume fraction] 42.3 % Normal 36.0-46.0 [facility] Comment on above: Performed By: #### 2 4322-8 #### [facility] (94205) [facility] ([facility] [address] [place] [address] Hemoglobin (Bld) [Mass/Vol] 13.4 g/dL Normal 12.0-16.0 [facility] Comment on above: Performed By: #### 2 4322-8 #### [facility] (63059) [facility] ([facility] [address] [place] [address] MCH (RBC) [Entitic mass] 27.8 pg Normal 26.0-34.0 [facility] Comment on above: Performed By: #### 2 4322-8 #### [facility] (88443) [facility] ([facility] [address] [place] [address] MCHC (RBC) [Mass/Vol] 31.7 g/dL Low 32.0-36.0 [facility] Comment on above: Performed By: #### 2 3-8 #### [facility] (32792) [facility] ([facility] [address] [place] [address] MCV (RBC) [Entitic vol] 88 fL Normal 80-100 [facility] Comment on above: Performed By: #### 2 432-8 #### [facility] (55547) [facility] ([facility] [address] [place] [id number] Nucleated RBC/100 WBC (Bld) [Ratio] 0.0 /100 WBCs Normal 0.0-0.0 [facility] Comment on above: Performed By: #### 2 4322-8 #### [facility] (36089) [facility] ([facility] [address] [place] [address] Platelets (Bld) [#/Vol] 307 x10*3/uL Normal 150-450 [facility] Comment on above: Performed By: #### 2 432-8 #### [facility] (90872) [facility] ([facility] [address] [place] [id number] RBC (Bld) [#/Vol] 4.82 x10*6/uL Normal 4.00-5.20 [facility] Comment on above: Performed By: #### 2 4322-8 #### [facility] (03919) [facility] ([facility] [address] [place] [id number] WBC (Bld) [#/Vol] 17.9 x10*3/uL High 4.4-11.3 [facility] Comment on above: Performed By: #### 2 4323-8 #### [facility] (99988) [facility] ([facility] [address] [place] [id number] Comprehensive metabolic 2000 panelon 07-08-2024 Albumin BCP dye [Mass/Vol] 3.3 g/dL Low 3.4-5.0 [facility] Comment on above: Performed By: #### 2 4323-8 #### [facility] (48091) [facility] ([facility] [address] [place] [id number] ALP [Catalytic activity/Vol] 282 U/L High 33-110 [facility] Comment on above: Performed By: #### 2 4323-8 #### [facility] (71684) [facility] ([facility] [address] [place] [address] ALT With P-5'-P [Catalytic activity/Vol] 42 U/L Normal 7-45 [facility] Comment on above: Result Comment: Camila ents treated with Sulfasalazine may generate falsely decreased results for ALT. Performed By: #### 2 4323-8 #### [facility] (12682) [facility] ([facility] [address] [place] [address] Anion gap [Moles/Vol] 11 mmol/L Normal 10-20 [facility] Comment on above: Performed By: #### 2 4322-8 #### [facility] (32435) [facility] ([facility] [address] [place] [address] AST With P-5'-P [Catalytic activity/Vol] 21 U/L Normal 9-39 [facility] Comment on above: Performed By: #### 2 4322-8 #### [facility] (85611) [facility] ([facility] [address] [place] [address] Bilirubin [Mass/Vol] 0.5 mg/dL Normal 0.0-1.2 [facility] Comment on above: Performed By: #### 2 4322-8 #### [facility] (80240) [facility] ([facility] [address] [place] [address] Calcium [Mass/Vol] 8.9 mg/dL Normal 8.6-10.3 [facility] Comment on above: Performed By: #### 2 3-8 #### [facility] (81988) [facility] ([facility] [address] [place] [address] Chloride [Moles/Vol] 101 mmol/L Normal 98-107 [facility] Comment on above: Performed By: #### 2 3-8 #### [facility] (95154) [facility] ([facility] [address] [place] [address] CO2 [Moles/Vol] 28 mmol/L Normal 21-32 [facility] Comment on above: Performed By: #### 2 4323-8 #### [facility] (02091) [facility] ([facility] [address] [place] [address] Creatinine [Mass/Vol] 0.40 mg/dL Low 0.50-1.05 [facility] Comment on above: Performed By: #### 2 4323-8 #### [facility] (78330) [facility] ([facility] [address] [place] [address] GFR/1.73 sq M.predicted MDRD (S/P/Bld) [Vol rate/Area] mL/min/{1.73_m2} Normal >60 [facility] Comment on above: Result Comment: Calc ulations of estimated GFR are performed using the 2020 CKD-EPI Study Refit equation without the race variable for the IDMS-Traceable creatinine methods. https://jasn.asnjournals.org/content//ASN.274995 5686 Performed By: #### 2 4323-8 #### [facility] (25388) [facility] ([facility] [address] [place] [address] Glucose [Mass/Vol] 258 mg/dL High 74-99 [facility] Comment on above: Performed By: #### 2 4323-8 #### [facility] (34800) [facility] ([facility] [address] [place] [address] Potassium [Moles/Vol] 4.1 mmol/L Normal 3.5-5.3 [facility] Comment on above: Performed By: #### 2 4323-8 #### [facility] (12946) [facility] ([facility] [address] [place] [address] Protein [Mass/Vol] 6.5 g/dL Normal 6.4-8.2 [facility] Comment on above: Performed By: #### 2 4323-8 #### [facility] (68645) [facility] ([facility] [address] [place] [address] Sodium [Moles/Vol] 136 mmol/L Normal 136-145 [facility] Comment on above: Performed By: #### 2 4323-8 #### [facility] (27854) [facility] ([facility] [address] [place] [address] Urea nitrogen [Mass/Vol] 20 mg/dL Normal 6-23 [facility] Comment on above: Performed By: #### 2 4323-8 #### [facility] (84315) [facility] ([facility] [address] [place] [address] Glucose Test strip manual (B ld) [Mass/Vol]on 07-08-2024 Glucose [Mass/Vol] 352 mg/dL High [address] [place] [address] Comment on above: Performed By: #### 2 4323-8 #### [facility] (18090) [facility] ([facility] [address] [place] [address] Glucose [Mass/Vol] 443 mg/dL High [address] [place] [address] Comment on above: Performed By: #### 2 4323-8 #### [facility] (36828) [facility] ([facility] [address] [place] [address] Glucose [Mass/Vol] 286 mg/dL High [address] [place] [address] Comment on above: Performed By: #### 2 4323-8 #### [facility] (34750) [facility] ([facility] [address] [place] [address] Glucose [Mass/Vol] 259 mg/dL High [address] [place] [address] Comment on above: Performed By: #### 2 4323-8 #### [facility] (84383) [facility] ([facility] [address] [place] [address] CBC W Auto Differential pane l (Bld)on 07-07-2024 Erythrocyte distribution width (RBC) [Ratio] 13.7 % Normal 11.5-14.5 [facility] Comment on above: Order Comment: The [...] By: #### 2 4323-8 #### [facility] (17125) [facility] ([facility] [address] [place] [address] Hematocrit (Bld) [Volume fraction] 40.3 % Normal 36.0-46.0 [facility] Comment on above: Order Comment: The [...] By: #### 2 4323-8 #### [facility] (35756) [facility] ([facility] [address] [place] [address] Hemoglobin (Bld) [Mass/Vol] 13.1 g/dL Normal 12.0-16.0 [facility] Comment on above: Order Comment: The [...] By: #### 2 4323-8 #### [facility] (16778) [facility] ([facility] [address] [place] [address] Immature granulocytes (Bld) [#/Vol] 1.31 x10*3/uL High 0.00-0.70 [facility] Comment on above: Order Comment: The [...] By: #### 2 4323-8 #### [facility] (99551) [facility] ([facility] [address] [place] [address] Immature granulocytes/100 WBC (Bld) 8.8 % High 0.0-0.9 [facility] Comment on above: Order Comment: The [...] By: #### 2 4323-8 #### [facility] (58845) [facility] ([facility] [address] [place] [address] MCH (RBC) [Entitic mass] 27.9 pg Normal 26.0-34.0 [facility] Comment on above: Order Comment: The [...] By: #### 2 4323-8 #### [facility] (16231) [facility] ([facility] [address] [place] [id number] MCHC (RBC) [Mass/Vol] 32.5 g/dL Normal 32.0-36.0 [facility] Comment on above: Order Comment: The [...] By: #### 2 4323-8 #### [facility] (77392) [facility] ([facility] [address] [place] [address] MCV (RBC) [Entitic vol] 86 fL Normal 80-100 [facility] Comment on above: Order Comment: The [...] By: #### 2 4323-8 #### [facility] (89459) [facility] ([facility] [address] [place], [place] [id number] Nucleated RBC/100 WBC (Bld) [Ratio] 0.0 /100 WBCs Normal 0.0-0.0 [facility] Comment on above: Order Comment: The [...] By: #### 2 4323-8 #### [facility] (36371) [facility] ([facility] [address] [place] [id number] Platelets (Bld) [#/Vol] 207 x10*3/uL Normal 150-450 [facility] Comment on above: Order Comment: The [...] By: #### 2 4323-8 #### [facility] (08278) [facility] ([facility] [address] [place] [address] RBC (Bld) [#/Vol] 4.69 x10*6/uL Normal 4.00-5.20 [facility] Comment on above: Order Comment: The p [...] By: #### 2 4323-8 #### [facility] (90123) [facility] ([facility] [address] [place] [address] WBC (Bld) [#/Vol] 15.0 x10*3/uL High 4.4-11.3 [facility] Comment on above: Order Comment: The p [...] By: #### 2 4323-8 #### [facility] (87801) [facility] ([facility] [address] [place] [address] Comprehensive metabolic 2000 panelon 07-07-2024 Albumin BCP dye [Mass/Vol] 3.0 g/dL Low 3.4-5.0 [facility] Comment on above: Performed By: #### 2 4323-8 #### [facility] (09606) [facility] ([facility] [address] [place] [address] ALP [Catalytic activity/Vol] 231 U/L High 33-110 [facility] Comment on above: Performed By: #### 2 4323-8 #### [facility] (80026) [facility] ([facility] [address] [place] [id number] ALT With P-5'-P [Catalytic activity/Vol] 39 U/L Normal 7-45 [facility] Comment on above: Result Comment: Camila ents treated with Sulfasalazine may generate falsely decreased results for ALT. Performed By: #### 2 4323-8 #### [facility] (37206) [facility] ([facility] [address] [place] [address] Anion gap [Moles/Vol] 10 mmol/L Normal 10-20 [facility] Comment on above: Performed By: #### 2 4323-8 #### [facility] (53508) [facility] ([facility] [place] [address] [place] [address] AST With P-5'-P [Catalytic activity/Vol] 21 U/L Normal 9-39 [facility] Comment on above: Performed By: #### 2 4323-8 #### [facility] (46829) [facility] ([facility] [place] [address] [place] [address] Bilirubin [Mass/Vol] 0.5 mg/dL Normal 0.0-1.2 [facility] Comment on above: Performed By: #### 2 4323-8 #### [facility] (11459) [facility] ([facility] [place] [address] [place] [address] Calcium [Mass/Vol] 8.7 mg/dL Normal 8.6-10.3 [facility] Comment on above: Performed By: #### 2 4323-8 #### [facility] (83762) [facility] ([facility] [place] [address] [place] [address] Chloride [Moles/Vol] 101 mmol/L Normal 98-107 [facility] Comment on above: Performed By: #### 2 4323-8 #### [facility] (40429) [facility] ([facility] [place] [address] [place] [address] CO2 [Moles/Vol] 30 mmol/L Normal 21-32 [facility] Comment on above: Performed By: #### 2 4323-8 #### [facility] (64589) [facility] ([facility] [place] [address] [place] [address] Creatinine [Mass/Vol] 0.42 mg/dL Low 0.50-1.05 [facility] Comment on above: Performed By: #### 2 4323-8 #### [facility] (26601) [facility] ([facility] [place] [address] [place] [address] GFR/1.73 sq M.predicted MDRD (S/P/Bld) [Vol rate/Area] mL/min/{1.73_m2} Normal >60 [facility] Comment on above: Result Comment: Calc ulations of estimated GFR are performed using the 2020 CKD-EPI Study Refit equation without the race variable for the IDMS-Traceable creatinine methods. https://jasn.asnjournals.org/content/early//ASN.494798 2465 Performed By: #### 2 4323-8 #### [facility] (18115) [facility] ([facility] [place]) [address] [place] [address] Glucose [Mass/Vol] 248 mg/dL High 74-99 [facility] Comment on above: Performed By: #### 2 4323-8 #### [facility] (10184) [facility] ([facility] [place] [address] [place] [address] Potassium [Moles/Vol] 4.3 mmol/L Normal 3.5-5.3 [facility] Comment on above: Performed By: #### 2 4323-8 #### [facility] (30240) [facility] [address] [place] [address] Protein [Mass/Vol] 6.0 g/dL Low 6.4-8.2 [facility] Comment on above: Performed By: #### 2 4323-8 #### [facility] (41979) [facility] ([facility] [address] [place] [address] Sodium [Moles/Vol] 137 mmol/L Normal 136-145 [facility] Comment on above: Performed By: #### 2 432-8 #### [facility] (59475) [facility] ([facility] [address] [place] [address] Urea nitrogen [Mass/Vol] 18 mg/dL Normal 6-23 [facility] Comment on above: Performed By: #### 2 4322-8 #### [facility] (95937) [facility] ([facility] [address] [place] [address] Glucose Test strip manual (B ld) [Mass/Vol]on 07-07-2024 Glucose [Mass/Vol] 289 mg/dL High 74-99 [facility] Comment on above: Performed By: #### 2 4323-8 #### [facility] (83236) [facility] ([facility] [address] [place] [address] Glucose [Mass/Vol] 347 mg/dL High 74-99 [facility] Comment on above: Performed By: #### 2 3-8 #### [facility] (30804) [facility] ([facility] [address] [place] [address] Glucose [Mass/Vol] 235 mg/dL High 74-99 [facility] Comment on above: Performed By: #### 2 4323-8 #### [facility] (43188) [facility] ([facility] [address] [place] [address] Glucose [Mass/Vol] 235 mg/dL High 74-99 [facility] Comment on above: Performed By: #### 2 4323-8 #### [facility] (58355) [facility] ([facility] [address] [place] [address] Manual differential performe d Ql (Bld)on 07-07-2024 Band form neutrophils (Bld) [#/Vol] 0.15 x10*3/uL Normal 0.00-0.70 [facility] Comment on above: Performed By: #### 2 3-8 #### [facility] (66334) [facility] ([facility] [address] [place] [address] Band form neutrophils/100 WBC (Bld) 1.0 % Normal 0.0-5.0 [facility] Comment on above: Performed By: #### 2 4322-8 #### [facility] (44898) [facility] ([facility] [address] [place] [address] Basophils (Bld) [#/Vol] 0.15 x10*3/uL High 0.00-0.10 [facility] Comment on above: Performed By: #### 2 4323-8 #### [facility] (82938) [facility] ([facility] [address] [place] [address] Basophils/100 WBC (Bld) 1.0 % Normal 0.0-2.0 [facility] Comment on above: Performed By: #### 2 4323-8 #### [facility] (31136) [facility] ([facility]) [address] [place] [address] Cells Counted Total (Bld) [#] 100 Normal [facility] Comment on above: Performed By: #### 2 4323-8 #### [facility] (58578) [facility] ([facility] [address] [place] [address] Eosinophils (Bld) [#/Vol] 0.00 x10*3/uL Normal 0.00-0.70 [facility] Comment on above: Performed By: #### 2 4323-8 #### [facility] (55914) [facility] ([facility]) [address] [place] [address] Eosinophils/100 WBC (Bld) 0.0 % Normal 0.0-6.0 [facility] Comment on above: Performed By: #### 2 3-8 #### [facility] (45521) [facility] ([facility] [address] [place] [address] Lymphocytes (Bld) [#/Vol] 2.10 x10*3/uL Normal 1.20-4.80 [facility] Comment on above: Performed By: #### 2 4322-8 #### [facility] (82980) [facility] LAB ([facility]) [address] [place] [address] Lymphocytes/100 WBC (Bld) 14.0 % Normal 13.0-44.0 [facility] Comment on above: Performed By: #### 2 432-8 #### [facility] (17752) [facility] ([facility] [address] [place] [address] Monocytes (Bld) [#/Vol] 0.45 x10*3/uL Normal 0.10-1.00 [facility] Comment on above: Performed By: #### 2 4323-8 #### [facility] (46385) [facility] ([facility]) [address] [place] [address] Monocytes/100 WBC (Bld) 3.0 % Normal 2.0-10.0 [facility] Comment on above: Performed By: #### 2 4323-8 #### [facility] (83708) [facility] ([facility] [address] [place] [address] Neutrophils (Bld) [#/Vol] 12.30 x10*3/uL High 1.20-7.70 [facility] Comment on above: Performed By: #### 2 4323-8 #### [facility] (56705) [facility] ([facility] [address] [place] [address] Ovalocytes LM Ql (Bld) Few [facility] Comment on above: Performed By: #### 2 4323-8 #### [facility] (42951) [facility] ([facility] [address] [place] [address] Polychromasia LM Ql (Bld) Mild [facility] Comment on above: Performed By: #### 2 4323-8 #### [facility] (17371) [facility] ([facility] [address] [place] [address] RBC morphology finding Nom (Bld) See Below [facility] Comment on above: Performed By: #### 2 4323-8 #### [facility] (93883) [facility] ([facility] [address] [place] [address] Segmented neutrophils (Bld) [#/Vol] 12.15 x10*3/uL High 1.20-7.00 [facility] Comment on above: Performed By: #### 2 4323-8 #### [facility] (37281) [facility] ([facility] [address] [place] [address] Segmented neutrophils/100 WBC (Bld) 81.0 % Normal 40.0-80.0 [facility] Comment on above: Result Comment: Perc ent differential counts (%) should be interpreted in the context of the absolute cell counts (cells/uL). Performed By: #### 2 4323-8 #### [facility] (29140) [facility] ([facility]) [address] [place] [address] CBC W Auto Differential pane l (Bld)on 07-06-2024 Erythrocyte distribution width (RBC) [Ratio] 13.7 % Normal 11.5-14.5 [facility] Comment on above: Order Comment: The [...] By: #### 2 4323-8 #### [facility] (78263) [facility] ([facility] [address] [place] [address] Hematocrit (Bld) [Volume fraction] 36.9 % Normal 36.0-46.0 [facility] Comment on above: Order Comment: The [...] By: #### 2 4323-8 #### [facility] (25566) [facility] ([facility] [address] [place] [address] Hemoglobin (Bld) [Mass/Vol] 12.0 g/dL Normal 12.0-16.0 [facility] Comment on above: Order Comment: The [...] By: #### 2 4323-8 #### [facility] (06702) [facility] ([facility] [address] [place] [address] Immature granulocytes (Bld) [#/Vol] 1.21 x10*3/uL High 0.00-0.70 [facility] Comment on above: Order Comment: The [...] By: #### 2 4323-8 #### [facility] (28500) [facility] ([facility] [address] [place] [address] Immature granulocytes/100 WBC (Bld) 9.9 % High 0.0-0.9 [facility] Comment on above: Order Comment: The [...] By: #### 2 4323-8 #### [facility] (70695) [facility] ([facility] [address] [place], [place] [id number] MCH (RBC) [Entitic mass] 27.4 pg Normal 26.0-34.0 [facility] Comment on above: Order Comment: The [...] By: #### 2 4323-8 #### [facility] (20047) [facility] LAB ([facility] [address] [place] [address] MCHC (RBC) [Mass/Vol] 32.5 g/dL Normal 32.0-36.0 [facility] Comment on above: Order Comment: The [...] By: #### 2 4323-8 #### [facility] (74810) [facility] ([facility] [address] [place] [id number] MCV (RBC) [Entitic vol] 84 fL Normal 80-100 [facility] Comment on above: Order Comment: The [...] By: #### 2 4323-8 #### [facility] (01551) [facility] ([facility] [address] [place] [address] Nucleated RBC/100 WBC (Bld) [Ratio] 0.0 /100 WBCs Normal 0.0-0.0 [facility] Comment on above: Order Comment: The [...] By: #### 2 4323-8 #### [facility] (08424) [facility] ([facility] [address] [place] [address] Platelets (Bld) [#/Vol] 168 x10*3/uL Normal 150-450 [facility] Comment on above: Order Comment: The [...] By: #### 2 4323-8 #### [facility] (55064) [facility] ([facility] [address] [place] [address] RBC (Bld) [#/Vol] 4.38 x10*6/uL Normal 4.00-5.20 [facility] Comment on above: Order Comment: The p [...] By: #### 2 4323-8 #### [facility] (97629) [facility] ([facility] [address] [place] [address] WBC (Bld) [#/Vol] 12.2 x10*3/uL High 4.4-11.3 [facility] Comment on above: Order Comment: The p [...] By: #### 2 4323-8 #### [facility] (22068) [facility] ([facility] [address] [place] [id number] Comprehensive metabolic 2000 panelon 07-06-2024 Albumin BCP dye [Mass/Vol] 2.8 g/dL Low 3.4-5.0 [facility] Comment on above: Performed By: #### 2 4323-8 #### [facility] (62201) [facility] ([facility] [address] [place] [address] ALP [Catalytic activity/Vol] 196 U/L High 33-110 [facility] Comment on above: Performed By: #### 2 4323-8 #### [facility] (32638) [facility] ([facility] [address] [place] [address] ALT With P-5'-P [Catalytic activity/Vol] 35 U/L Normal 7-45 [facility] Comment on above: Result Comment: Camila ents treated with Sulfasalazine may generate falsely decreased results for ALT. Performed By: #### 2 4323-8 #### [facility] (95538) [facility] ([facility] [address] [place] [id number] Anion gap [Moles/Vol] 10 mmol/L Normal 10-20 [facility] Comment on above: Performed By: #### 2 4323-8 #### [facility] (51538) [facility] ([facility] [address] [place] [address] AST With P-5'-P [Catalytic activity/Vol] 21 U/L Normal 9-39 [facility] Comment on above: Performed By: #### 2 4323-8 #### [facility] (84328) [facility] ([facility] [address] [place] [address] Bilirubin [Mass/Vol] 0.5 mg/dL Normal 0.0-1.2 [facility] Comment on above: Performed By: #### 2 4323-8 #### [facility] (31496) [facility] ([facility] [address] [place] [address] Calcium [Mass/Vol] 8.4 mg/dL Low 8.6-10.3 [facility] Comment on above: Performed By: #### 2 4323-8 #### [facility] (96178) [facility] ([facility] [address] [place] [address] Chloride [Moles/Vol] 103 mmol/L Normal 98-107 [facility] Comment on above: Performed By: #### 2 4323-8 #### [facility] (78651) [facility] ([facility] [address] [place] [address] CO2 [Moles/Vol] 29 mmol/L Normal 21-32 [facility] Comment on above: Performed By: #### 2 4323-8 #### [facility] (64741) [facility] ([facility] [address] [place] [address] Creatinine [Mass/Vol] 0.40 mg/dL Low 0.50-1.05 [facility] Comment on above: Performed By: #### 2 4323-8 #### [facility] (90604) [facility] ([facility] [address] [place] [address] GFR/1.73 sq M.predicted MDRD (S/P/Bld) [Vol rate/Area] mL/min/{1.73_m2} Normal >60 [facility] Comment on above: Result Comment: Calc ulations of estimated GFR are performed using the 2020 CKD-EPI Study Refit equation without the race variable for the IDMS-Traceable creatinine methods. https://jasn.asnjournals.org/content/early//ASN.692523 1490 Performed By: #### 2 4323-8 #### [facility] (47551) [facility] ([facility]) [address] [place] [address] Glucose [Mass/Vol] 202 mg/dL High 74-99 [facility] Comment on above: Performed By: #### 2 4323-8 #### [facility] (22419) [facility] ([facility] [address] [place] [address] Potassium [Moles/Vol] 3.8 mmol/L Normal 3.5-5.3 [facility] Comment on above: Performed By: #### 2 4323-8 #### [facility] (31380) [facility] ([facility] [address] [place] [address] Protein [Mass/Vol] 5.5 g/dL Low 6.4-8.2 [facility] Comment on above: Performed By: #### 2 4323-8 #### [facility] (11613) [facility] ([facility] [address] [place] [address] Sodium [Moles/Vol] 138 mmol/L Normal 136-145 [facility] Comment on above: Performed By: #### 2 4323-8 #### [facility] (30781) [facility] ([facility] [address] [place] [address] Urea nitrogen [Mass/Vol] 17 mg/dL Normal 6-23 [facility] Comment on above: Performed By: #### 2 4322-8 #### [facility] (40953) [facility] ([facility] [address] [place] [address] Glucose Test strip manual (B ld) [Mass/Vol]on 07-06-2024 Glucose [Mass/Vol] 242 mg/dL High 74-99 [facility] Comment on above: Performed By: #### 2 432-8 #### [facility] (61978) [facility] ([facility] [address] [place] [address] Glucose [Mass/Vol] 332 mg/dL High 74-99 [facility] Comment on above: Performed By: #### 2 4323-8 #### [facility] (26187) [facility] ([facility] [address] [place] [address] Glucose [Mass/Vol] 286 mg/dL High 74-99 [facility] Comment on above: Performed By: #### 2 3-8 #### [facility] (60016) [facility] ([facility] [address] [place] [address] Glucose [Mass/Vol] 185 mg/dL High 74-99 [facility] Comment on above: Performed By: #### 2 3-8 #### [facility] (94678) [facility] ([facility] [address] [place] [id number] Magnesiumon 07-06-2024 Magnesium [Mass/Vol] 1.62 mg/dL Normal 1.60-2.40 [facility] Comment on above: Performed By: #### 2 4322-8 #### [facility] (87998) [facility] ([facility] [address] [place] [id number] Manual differential performe d Ql (Bld)on 07-06-2024 Band form neutrophils (Bld) [#/Vol] 0.98 x10*3/uL High 0.00-0.70 [facility] Comment on above: Performed By: #### 2 4322-8 #### [facility] (13152) [facility] ([facility] [address] [place] [address] Band form neutrophils/100 WBC (Bld) 8.0 % Normal 0.0-5.0 [facility] Comment on above: Performed By: #### 2 4322-8 #### [facility] (86629) [facility] ([facility] [address] [place] [address] Basophils (Bld) [#/Vol] 0.00 x10*3/uL Normal 0.00-0.10 [facility] Comment on above: Performed By: #### 2 3-8 #### [facility] (76210) [facility] ([facility] [address] [place] [address] Basophils/100 WBC (Bld) 0.0 % Normal 0.0-2.0 [facility] Comment on above: Performed By: #### 2 3-8 #### [facility] (04518) [facility] ([facility] [address] [place] [address] Cells Counted Total (Bld) [#] 100 Normal [facility] Comment on above: Performed By: #### 2 3-8 #### [facility] (63793) [facility] ([facility] [address] [place] [address] Eosinophils (Bld) [#/Vol] 0.12 x10*3/uL Normal 0.00-0.70 [facility] Comment on above: Performed By: #### 2 4322-8 #### [facility] (09740) [facility] ([facility] [address] [place] [address] Eosinophils/100 WBC (Bld) 1.0 % Normal 0.0-6.0 [facility] Comment on above: Performed By: #### 2 4322-8 #### [facility] (59540) [facility] ([facility] [address] [place] [address] Lymphocytes (Bld) [#/Vol] 0.61 x10*3/uL Low 1.20-4.80 [facility] Comment on above: Performed By: #### 2 4322-8 #### [facility] (49473) [facility] ([facility] [address] [place] [address] Lymphocytes/100 WBC (Bld) 5.0 % Normal 13.0-44.0 [facility] Comment on above: Performed By: #### 2 4322-8 #### [facility] (27762) [facility] ([facility] [address] [place] [address] Metamyelocytes (Bld) [#/Vol] 0.12 x10*3/uL Normal 0.00-0.00 [facility] Comment on above: Performed By: #### 2 4322-8 #### [facility] (71357) [facility] ([facility] [address] [place] [address] Metamyelocytes/100 WBC (Bld) 1.0 % Normal 0.0-0.0 [facility] Comment on above: Performed By: #### 2 4322-8 #### [facility] (48297) [facility] ([facility] [address] [place] [address] Monocytes (Bld) [#/Vol] 0.49 x10*3/uL Normal 0.10-1.00 [facility] Comment on above: Performed By: #### 2 4322-8 #### [facility] (35285) [facility] ([facility] [address] [place] [address] Monocytes/100 WBC (Bld) 4.0 % Normal 2.0-10.0 [facility] Comment on above: Performed By: #### 2 4322-8 #### [facility] (05156) [facility] ([facility] [address] [place] [address] Neutrophils (Bld) [#/Vol] 10.37 x10*3/uL High 1.20-7.70 [facility] Comment on above: Performed By: #### 2 4322-8 #### [facility] (71267) [facility] ([facility] [address] [place] [address] Ovalocytes LM Ql (Bld) Few [facility] Comment on above: Performed By: #### 2 4322-8 #### [facility] (56210) [facility] ([facility] [address] [place] [address] Polychromasia LM Ql (Bld) Mild [facility] Comment on above: Performed By: #### 2 4322-8 #### [facility] (60596) [facility] ([facility] [address] [place] [address] RBC morphology finding Nom (Bld) See Below [facility] Comment on above: Performed By: #### 2 4322-8 #### [facility] (56439) [facility] ([facility] [address] [place] [address] Segmented neutrophils (Bld) [#/Vol] 9.39 x10*3/uL High 1.20-7.00 [facility] Comment on above: Performed By: #### 2 4322-8 #### [facility] (05687) [facility] ([facility] [address] [place] [address] Segmented neutrophils/100 WBC (Bld) 77.0 % Normal 40.0-80.0 [facility] Comment on above: Result Comment: Perc ent differential counts (%) should be interpreted in the context of the absolute cell counts (cells/uL). Performed By: #### 2 4323-8 #### [facility] (75754) [facility] ([facility] [address] [place] [address] Variant lymphocytes (Bld) [#/Vol] 0.49 x10*3/uL Normal 0.00-0.50 [facility] Comment on above: Performed By: #### 2 4323-8 #### [facility] (17281) [facility] ([facility] [address] [place] [address] Variant lymphocytes/100 WBC (Bld) 4.0 % Normal 0.0-2.0 [facility] Comment on above: Performed By: #### 2 4323-8 #### [facility] (24152) [facility] ([facility] [address] [place] [address] CBC W Auto Differential pane l (Bld)on 07-05-2024 Erythrocyte distribution width (RBC) [Ratio] 13.5 % Normal 11.5-14.5 [facility] Comment on above: Order Comment: The [...] By: #### 1 6362-6 #### [facility] (00734) [facility] ([facility] [address] [place] [address] Hematocrit (Bld) [Volume fraction] 34.2 % Low 36.0-46.0 [facility] Comment on above: Order Comment: The p [...] By: #### 1 6362-6 #### [facility] (07925) [facility] ([facility] [address] [place] [address] Hemoglobin (Bld) [Mass/Vol] 11.5 g/dL Low 12.0-16.0 [facility] Comment on above: Order Comment: The [...] By: #### 1 6362-6 #### [facility] (70718) [facility] ([facility] [address] [place] [address] Immature granulocytes (Bld) [#/Vol] 1.33 x10*3/uL High 0.00-0.70 [facility] Comment on above: Order Comment: The [...] By: #### 1 6362-6 #### [facility] (89683) [facility] ([facility] [address] [place] [id number] Immature granulocytes/100 WBC (Bld) 12.1 % High 0.0-0.9 [facility] Comment on above: Order Comment: The [...] By: #### 1 6362-6 #### [facility] (67861) [facility] ([facility] [address] [place] [address] MCH (RBC) [Entitic mass] 28.2 pg Normal 26.0-34.0 [facility] Comment on above: Order Comment: The [...] By: #### 1 6362-6 #### [facility] (20322) [facility] ([facility] [address] [place] [address] MCHC (RBC) [Mass/Vol] 33.6 g/dL Normal 32.0-36.0 [facility] Comment on above: Order Comment: The [...] By: #### 1 6362-6 #### [facility] (04738) [facility] ([facility] [address] [place] [address] MCV (RBC) [Entitic vol] 84 fL Normal 80-100 [facility] Comment on above: Order Comment: The [...] By: #### 1 6362-6 #### [facility] (53478) [facility] ([facility]) [address] [place] [address] Nucleated RBC/100 WBC (Bld) [Ratio] 0.0 /100 WBCs Normal 0.0-0.0 [facility] [facility] Comment on above: Order Comment: The [...] By: #### 1 6362-6 #### [facility] (19747) [facility] ([facility] [address] [place] [address] Platelets (Bld) [#/Vol] 138 x10*3/uL Low 150450 [facility] Comment on above: Order Comment: The [...] By: #### 1 6362-6 #### [facility] (25979) [facility] [address] [place] [address] RBC (Bld) [#/Vol] 4.08 x10*6/uL Normal 4.00-5.20 [facility] Comment on above: Order Comment: The p [...] By: #### 1 6362-6 #### [facility] (31486) [facility] ([facility] [address] [place] [address] WBC (Bld) [#/Vol] 11.0 x10*3/uL Normal 4.4-11.3 [facility] Comment on above: Order Comment: The p [...] By: #### 1 6362-6 #### [facility] (63454) [facility] ([facility] [address] [place] [address] Comprehensive metabolic 2000 panelon 07-05-2024 Albumin BCP dye [Mass/Vol] 2.5 g/dL Low 3.4-5.0 [facility] Comment on above: Performed By: #### 1 6362-6 #### [facility] (60407) [facility] ([facility] [address] [place] [address] ALP [Catalytic activity/Vol] 145 U/L High 33-110 [facility] Comment on above: Performed By: #### 1 6362-6 #### [facility] (18907) [facility] ([facility] [address] [place] [address] ALT With P-5'-P [Catalytic activity/Vol] 28 U/L Normal 7-45 [facility] Comment on above: Result Comment: Camila ents treated with Sulfasalazine may generate falsely decreased results for ALT. Performed By: #### 1 6362-6 #### [facility] (49249) [facility] ([facility] [address] [place] [address] Anion gap [Moles/Vol] 7 mmol/L Low 10-20 [facility] Comment on above: Performed By: #### 1 6362-6 #### [facility] (04214) [facility] ([facility] [address] [place] [address] AST With P-5'-P [Catalytic activity/Vol] 14 U/L Normal 9-39 [facility] Comment on above: Performed By: #### 1 6362-6 #### [facility] (28317) [facility] ([facility] [address] [place] [address] Bilirubin [Mass/Vol] 0.5 mg/dL Normal 0.0-1.2 [facility] Comment on above: Performed By: #### 1 6362-6 #### [facility] (28385) [facility] ([facility]) [address] [place] [address] Calcium [Mass/Vol] 8.5 mg/dL Low 8.6-10.3 [facility] Comment on above: Performed By: #### 1 6362-6 #### [facility] (82069) [facility] ([facility]) [address] [place] [address] Chloride [Moles/Vol] 106 mmol/L Normal 98-107 [facility] Comment on above: Performed By: #### 1 6362-6 #### [facility] (15336) [facility] ([facility]) [address] [place] [address] CO2 [Moles/Vol] 29 mmol/L Normal 21-32 [facility] Comment on above: Performed By: #### 1 6362-6 #### [facility] (73933) [facility] ([facility]) [address] [place] [address] Creatinine [Mass/Vol] 0.45 mg/dL Low 0.50-1.05 [facility] Comment on above: Performed By: #### 1 6362-6 #### [facility] (58648) [facility] ([facility]) [address] [place] [address] GFR/1.73 sq M.predicted MDRD (S/P/Bld) [Vol rate/Area] mL/min/{1.73_m2} Normal >60 [facility] Comment on above: Result Comment: Calc ulations of estimated GFR are performed using the 2020 CKD-EPI Study Refit equation without the race variable for the IDMS-Traceable creatinine methods. https://jasn.asnjournals.org/content/early//ASN.925193 6465 Performed By: #### 1 6362-6 #### [facility] (17216) [facility] ([facility]) [address] [place] [address] Glucose [Mass/Vol] 170 mg/dL High 74-99 [facility] Comment on above: Performed By: #### 1 6362-6 #### [facility] (67442) [facility] ([facility]) [address] [place] [address] Potassium [Moles/Vol] 3.4 mmol/L Low 3.5-5.3 [facility] Comment on above: Performed By: #### 1 6362-6 #### [facility] (54836) [facility] ([facility]) [address] [place] [address] Protein [Mass/Vol] 5.0 g/dL Low 6.4-8.2 [facility] Comment on above: Performed By: #### 1 6362-6 #### [facility] (57040) [facility] ([facility]) [address] [place] [address] Sodium [Moles/Vol] 139 mmol/L Normal 136-145 [facility] Comment on above: Performed By: #### 1 6362-6 #### [facility] (01991) [facility] ([facility]) [address] [place] [address] Urea nitrogen [Mass/Vol] 22 mg/dL Normal 6-23 [facility] Comment on above: Performed By: #### 1 6362-6 #### [facility] (85070) [facility] ([facility]) [address] [place] [id number] Glucose Test strip manual (B ld) [Mass/Vol]on 07-05-2024 Glucose [Mass/Vol] 305 mg/dL High [address] [place] [address] Comment on above: Performed By: #### 2 4323-8 #### [facility] (49269) [facility] ([facility]) [address] [place] [address] Glucose [Mass/Vol] 281 mg/dL High [address] [place] [address] Comment on above: Performed By: #### 2 4323-8 #### [facility] (94157) [facility] ([facility]) [address] [place] [address] Glucose [Mass/Vol] 189 mg/dL High [address] [place] [address] Comment on above: Performed By: #### 2 4323-8 #### [facility] (46023) [facility] ([facility] [address] [place] [address] Glucose [Mass/Vol] 167 mg/dL High [address] [place] [address] Comment on above: Performed By: #### 1 6362-6 #### [facility] (75094) [facility] ([facility]) [address] [place] [id number] Magnesiumon 07-05-2024 Magnesium [Mass/Vol] 1.57 mg/dL Low 1.60-2.40 [facility] Comment on above: Performed By: #### 1 6362-6 #### [facility] (50748) [facility] ([facility] [address] [place] [id number] Manual differential performe d Ql (Bld)on 07-05-2024 Band form neutrophils (Bld) [#/Vol] 0.66 x10*3/uL Normal 0.00-0.70 [facility] Comment on above: Performed By: #### 1 6362-6 #### [facility] (82747) [facility] ([facility] [address] [place] [address] Band form neutrophils/100 WBC (Bld) 6.0 % Normal 0.0-5.0 [facility] Comment on above: Performed By: #### 1 6362-6 #### [facility] (45172) [facility] ([facility] [address] [place] [address] Basophils (Bld) [#/Vol] 0.00 x10*3/uL Normal 0.00-0.10 [facility] Comment on above: Performed By: #### 1 6362-6 #### [facility] (33793) [facility] ([facility]) [address] [place] [address] Basophils/100 WBC (Bld) 0.0 % Normal 0.0-2.0 [facility] Comment on above: Performed By: #### 1 6362-6 #### [facility] (68615) [facility] ([facility]) [address] [place] [address] Cells Counted Total (Bld) [#] 100 Normal [facility] Comment on above: Performed By: #### 1 6362-6 #### [facility] (46543) [facility] ([facility] [address] [place] [address] Eosinophils (Bld) [#/Vol] 0.00 x10*3/uL Normal 0.00-0.70 [facility] Comment on above: Performed By: #### 1 6362-6 #### [facility] (73241) [facility] ([facility] [address] [place] [address] Eosinophils/100 WBC (Bld) 0.0 % Normal 0.0-6.0 [facility] Comment on above: Performed By: #### 1 6362-6 #### [facility] (36385) [facility] ([facility] [address] [place] [address] Lymphocytes (Bld) [#/Vol] 0.44 x10*3/uL Low 1.20-4.80 [facility] Comment on above: Performed By: #### 1 6362-6 #### [facility] (84651) [facility] ([facility] [address] [place] [address] Lymphocytes/100 WBC (Bld) 4.0 % Normal 13.0-44.0 [facility] Comment on above: Performed By: #### 1 6362-6 #### [facility] (65147) [facility] ([facility] [address] [place] [address] Metamyelocytes (Bld) [#/Vol] 0.11 x10*3/uL Normal 0.00-0.00 [facility] Comment on above: Performed By: #### 1 6362-6 #### [facility] (91446) [facility] ([facility] [address] [place] [address] Metamyelocytes/100 WBC (Bld) 1.0 % Normal 0.0-0.0 [facility] Comment on above: Performed By: #### 1 6362-6 #### [facility] (45893) [facility] ([facility] [address] [place] [address] Monocytes (Bld) [#/Vol] 0.88 x10*3/uL Normal 0.10-1.00 [facility] Comment on above: Performed By: #### 1 6362-6 #### [facility] (61102) [facility] ([facility] [address] [place] [address] Monocytes/100 WBC (Bld) 8.0 % Normal 2.0-10.0 [facility] Comment on above: Performed By: #### 1 6362-6 #### [facility] (60598) [facility] ([facility] [address] [place] [address] Neutrophils (Bld) [#/Vol] 9.57 x10*3/uL High 1.20-7.70 [facility] Comment on above: Performed By: #### 1 6362-6 #### [facility] (48290) [facility] ([facility] [address] [place] [address] RBC morphology finding Nom (Bld) No significant RBC morphology present Normal [facility] Comment on above: Performed By: #### 1 6362-6 #### [facility] (37720) [facility] ([facility] [address] [place] [address] Segmented neutrophils (Bld) [#/Vol] 8.91 x10*3/uL High 1.20-7.00 [facility] Comment on above: Performed By: #### 1 6362-6 #### [facility] (31217) [facility] ([facility] [address] [place] [address] Segmented neutrophils/100 WBC (Bld) 81.0 % Normal 40.0-80.0 [facility] Comment on above: Result Comment: Perc ent differential counts (%) should be interpreted in the context of the absolute cell counts (cells/uL). Performed By: #### 1 6362-6 #### [facility] (35719) [facility] ([facility] [address] [place] [address] Bacteria identifiedon 2024 Bacteria identified Cx Nom (Bld) Test: Blood Culture Specimen Source: Peripheral Venipuncture Specimen Type: Blood culture Specimen Date: 07/04/20241856 Result Date: 07/09/2024 1201 Result Status: Final result Abnormal: No Resulting Lab: [facility] [address] [place] [address] CULTURE No growth at 4 days - FINAL REPORT Normal [facility] Comment on above: Performed By: #### 2 4323-8 #### [facility] (17313) [facility] ([facility] [address] [place] [address] Bacteria identified Cx Nom (Bld) Test: Blood Culture Specimen Source: Peripheral Venipuncture Specimen Type: Blood culture Specimen Date: 07/04/20241856 Result Date: 07/09/2024 1301 Result Status: Final result Abnormal: No Resulting Lab: [facility] [address] [facility] [address] CULTURE No growth at 4 days - FINAL REPORT [facility] Comment on above: Performed By: #### 2 4323-8 #### [facility] (17150) [facility] ([facility] [address] [place] [address] Basic metabolic 2000 panelon 07-04-2024 Anion gap [Moles/Vol] 10 mmol/L Normal 10-20 [facility] Comment on above: Performed By: #### T HYDS #### [facility] (20869) [facility] ([facility] [address] [place] [address] Calcium [Mass/Vol] 8.6 mg/dL Normal 8.6-10.3 [facility] Comment on above: Performed By: #### T HYDS #### [facility] (32027) [facility] ([facility] [address] [place] [address] Chloride [Moles/Vol] 107 mmol/L Normal 98-107 [facility] Comment on above: Performed By: #### T HYDS #### [facility] (01444) [facility] ([facility] [address] [place] [address] CO2 [Moles/Vol] 27 mmol/L Normal 21-32 [facility] Comment on above: Performed By: #### T HYDS #### [facility] (78731) [facility] ([facility] [address] [place] [address] Creatinine [Mass/Vol] 0.54 mg/dL Normal 0.50-1.05 [facility] Comment on above: Performed By: #### T HYDS #### [facility] (78828) [facility] ([facility] [address] [place] [address] GFR/1.73 sq M.predicted MDRD (S/P/Bld) [Vol rate/Area] mL/min/{1.73_m2} Normal >60 [facility] Comment on above: Result Comment: Calc ulations of estimated GFR are performed using the 2020 CKD-EPI Study Refit equation without the race variable for the IDMS-Traceable creatinine methods. https://jasn.asnjournals.org/content/early/ASN.494531 9495 Performed By: #### T HYDS #### [facility] (29331) [facility] ([facility] [address] [place] [address] Glucose [Mass/Vol] 214 mg/dL High 74-99 [facility] Comment on above: Performed By: #### T HYDS #### [facility] (82387) [facility] ([facility] [address] [place] [address] Potassium [Moles/Vol] 3.7 mmol/L Normal 3.5-5.3 [facility] Comment on above: Performed By: #### T HYDS #### [facility] (46848) [facility] ([facility] [address] [place] [address] Sodium [Moles/Vol] 140 mmol/L Normal 136-145 [facility] Comment on above: Performed By: #### T HYDS #### [facility] (12305) [facility] ([facility] [address] [place] [address] Urea nitrogen [Mass/Vol] 26 mg/dL High 6-23 [facility] Comment on above: Performed By: #### T HYDS #### [facility] (71859) [facility] ([facility] [address] [place] [address] CBC W Auto Differential pane l (Bld)on 07-04-2024 Erythrocyte distribution width (RBC) [Ratio] 13.5 % Normal 11.5-14.5 [facility] Comment on above: Order Comment: The [...] By: #### 1 6362-6 #### [facility] (78029) [facility] ([facility] [address] [place] [address] Hematocrit (Bld) [Volume fraction] 36.7 % Normal 36.0-46.0 [facility] Comment on above: Order Comment: The [...] By: #### 1 6362-6 #### [facility] (23430) [facility] [address] [place], [place] [id number] Hemoglobin (Bld) [Mass/Vol] 11.6 g/dL Low 12.0-16.0 [facility] Comment on above: Order Comment: The [...] By: #### 1 6362-6 #### [facility] (50561) [facility] ([facility] [address] [place] [address] Immature granulocytes (Bld) [#/Vol] 1.21 x10*3/uL High 0.00-0.70 [facility] Comment on above: Order Comment: The [...] By: #### 1 6362-6 #### [facility] (11506) [facility] [address] [place], [place] [id number] Immature granulocytes/100 WBC (Bld) 9.1 % High 0.0-0.9 [facility] Comment on above: Order Comment: The [...] By: #### 1 6362-6 #### [facility] (61976) [facility] ([facility] [address] [place] [address] MCH (RBC) [Entitic mass] 26.9 pg Normal 26.0-34.0 [facility] Comment on above: Order Comment: The [...] By: #### 1 6362-6 #### [facility] (56216) [facility] ([facility] [address] [place] [address] MCHC (RBC) [Mass/Vol] 31.6 g/dL Low 32.0-36.0 [facility] Comment on above: Order Comment: The [...] By: #### 1 6362-6 #### [facility] (74323) [facility] ([facility] [address] [place] [id number] MCV (RBC) [Entitic vol] 85 fL Normal 80-100 [facility] Comment on above: Order Comment: The [...] By: #### 1 6362-6 #### [facility] (78028) [facility] ([facility] [address] [place], [place] [phone] Nucleated RBC/100 WBC (Bld) [Ratio] 0.0 /100 WBCs Normal 0.0-0.0 [facility] Comment on above: Order Comment: The [...] By: #### 1 6362-6 #### [facility] (00149) [facility] ([facility] [address] [place], [place] [phone] Platelets (Bld) [#/Vol] 97 x10*3/uL Low 150-450 [facility] Comment on above: Order Comment: The [...] By: #### 1 6362-6 #### [facility] (05387) [facility] ([facility] [address] [place] [address] RBC (Bld) [#/Vol] 4.31 x10*6/uL Normal 4.00-5.20 [facility] Comment on above: Order Comment: The p [...] By: #### 1 6362-6 #### [facility] (99261) [facility] ([facility] [address] [place] [address] WBC (Bld) [#/Vol] 13.3 x10*3/uL High 4.4-11.3 [facility] Comment on above: Order Comment: The p [...] By: #### 1 6362-6 #### [facility] (60732) [facility] ([facility] [address] [place] [address] Glucose Test strip manual (B ld) [Mass/Vol]on 07-04-2024 Glucose [Mass/Vol] 318 mg/dL High 74-99 [facility] Comment on above: Performed By: #### 1 6362-6 #### [facility] (13733) [facility] ([facility] [address] [place] [address] Glucose [Mass/Vol] 338 mg/dL High [address] [place] [address] Comment on above: Performed By: #### 1 6362-6 #### [facility] (46774) [facility] ([facility] [address] [place] [address] Glucose [Mass/Vol] 219 mg/dL High [address] [place] [address] Comment on above: Performed By: #### T HYDS #### [facility] (73255) [facility] ([facility] [address] [place] [id number] Glucose [Mass/Vol] 158 mg/dL High [address] [place] [address] Comment on above: Performed By: #### T JADENS #### [facility] (42069) [facility] ([facility]) [address] [place], [place] [id number] Manual differential performe d Ql (Bld)on 07-04-2024 Basophils (Bld) [#/Vol] 0.00 x10*3/uL Normal 0.00-0.10 [facility] Comment on above: Performed By: #### 1 6362-6 #### [facility] (57319) [facility] ([facility] [address] [place] [address] Basophils/100 WBC (Bld) 0.0 % Normal 0.0-2.0 [facility] Comment on above: Performed By: #### 1 6362-6 #### [facility] (70503) [facility] ([facility] [address] [place] [address] Cells Counted Total (Bld) [#] 100 Normal [facility] Comment on above: Performed By: #### 1 6362-6 #### [facility] (55235) [facility] ([facility] [address] [place] [address] Eosinophils (Bld) [#/Vol] 0.00 x10*3/uL Normal 0.00-0.70 [facility] Comment on above: Performed By: #### 1 6362-6 #### [facility] (43151) [facility] ([facility] [address] [place] [address] Eosinophils/100 WBC (Bld) 0.0 % Normal 0.0-6.0 [facility] Comment on above: Performed By: #### 1 6362-6 #### [facility] (54825) [facility] ([facility] [address] [place] [address] Lymphocytes (Bld) [#/Vol] 0.67 x10*3/uL Low 1.20-4.80 [facility] Comment on above: Performed By: #### 1 6362-6 #### [facility] (48160) [facility] ([facility] [address] [place] [address] Lymphocytes/100 WBC (Bld) 5.0 % Normal 13.0-44.0 [facility] Comment on above: Performed By: #### 1 6362-6 #### [facility] (43969) [facility] ([facility] [address] [place] [address] Metamyelocytes (Bld) [#/Vol] 0.27 x10*3/uL Normal 0.00-0.00 [facility] Comment on above: Performed By: #### 1 6362-6 #### [facility] (92662) [facility] ([facility] [place] [address] [place] [address] Metamyelocytes/100 WBC (Bld) 2.0 % Normal 0.0-0.0 [facility] Comment on above: Performed By: #### 1 6362-6 #### [facility] (72295) [facility] ([facility] [place] [address] [place] [address] Monocytes (Bld) [#/Vol] 0.67 x10*3/uL Normal 0.10-1.00 [facility] Comment on above: Performed By: #### 1 6362-6 #### [facility] (01514) [facility] ([facility] [place] [address] [place] [address] Monocytes/100 WBC (Bld) 5.0 % Normal 2.0-10.0 [facility] Comment on above: Performed By: #### 1 6362-6 #### [facility] (28407) [facility] ([facility] [place] [address] [place] [address] RBC morphology finding Nom (Bld) No significant RBC morphology present Normal [facility] Comment on above: Performed By: #### 1 6362-6 #### [facility] (18027) [facility] ([facility] [place] [address] [place] [id number] Segmented neutrophils (Bld) [#/Vol] 11.70 x10*3/uL High 1.20-7.00 [facility] Comment on above: Performed By: #### 1 6362-6 #### [facility]DI[facility] (10714) [facility] ([facility] [place] [address] [place] [address] Segmented neutrophils/100 WBC (Bld) 88.0 % Normal 40.0-80.0 [facility] Comment on above: Result Comment: Perc ent differential counts (%) should be interpreted in the context of the absolute cell counts (cells/uL). Performed By: #### 1 6362-6 #### [facility] (34560) [facility] ([facility] [place] [address] [place] [id number] US RENAL COMPLETEon 07-05-19 25 US RENAL COMPLETE Interpreted By: Cordelia Shukla, STUDY: US RENAL COMPLETE; 07/04/2024 5:56 pm INDICATION: Signs/Symptoms:4.1 mm calculus at the left UVJ with mild associated hydroureteronephrosis on admission CT; WBC remains elevated. Follow-up obstructive uropathy. COMPARISON: None. ACCESSION NUMBER(S): [id number] ORDERING CLINICIAN: TUAN TOWNSEND TECHNIQUE: Grayscale and color Doppler imaging of [...] Cordelia Shukla 07/05/2024 5:30 AM Dictation workstation: [id number] [facility] Calcidiolon 07-03-2024 25-hydroxyvitamin D3 [Mass/Vol] 21 ng/mL Low 30-100 [facility] Comment on above: Order Comment: TSH t esting is performed using different testing methodology at [facility] than at other [facility]. Direct result comparisons should only be made within the same method. Performed By: #### T HYDS #### [facility] (47515) [facility] ([facility] [address] [place] [address] Cobalaminson 07-03-2024 Cobalamin (Vitamin B12) [Mass/Vol] 706 pg/mL Normal 211-911 [facility] Comment on above: Performed By: #### T HYDS #### [facility] (05547) [facility] ([facility] [address] [place] [address] Folateon 07-03-2024 Folate [Mass/Vol] 6.2 ng/mL Normal >5.0 [facility] Comment on above: Order Comment: TSH t esting is performed using different testing methodology at [facility] than at other [facility]. Direct result comparisons should only be made within the same method. Performed By: #### T HYDS #### [facility] (06871) [facility] ([facility] [address] [place] [id number] Glucose Test strip manual (B ld) [Mass/Vol]on 07-03-2024 Glucose [Mass/Vol] 328 mg/dL High [address] [place] [address] Comment on above: Performed By: #### T HYDS #### [facility] (81651) [facility] ([facility] [address] [place] [address] Glucose [Mass/Vol] 253 mg/dL High [address] [place] [address] Comment on above: Performed By: #### T HYDS #### [facility] (66180) [facility] ([facility]) [address] [place] [address] Glucose [Mass/Vol] 108 mg/dL High [address] [place] [address] Comment on above: Performed By: #### T HYDS #### [facility] (70000) [facility] ([facility]) [address] [place] [address] Glucose [Mass/Vol] 78 mg/dL Normal [address] [place] [address] Comment on above: Performed By: #### T JADENS #### [facility] (57757) [facility] ([facility]) [address] [place] [address] Glucose [Mass/Vol] 99 mg/dL Normal [address] [place] [address] Comment on above: Performed By: #### 2 524-7 #### [facility] (32900) [facility] ([facility] [address] [place] [address] Glucose [Mass/Vol] 88 mg/dL Normal [address] [place] [address] Comment on above: Performed By: #### 2 524-7 #### [facility] (87505) [facility] ([facility] [address] [place] [address] Glucose [Mass/Vol] 99 mg/dL Normal [address] [place] [address] Comment on above: Performed By: #### 2 524-7 #### [facility] (48046) [facility] ([facility]) [address] [place] [address] Glucose [Mass/Vol] 130 mg/dL High 74-99 [facility] Comment on above: Performed By: #### 2 524-7 #### [facility] (61821) [facility] ([facility]) [address] [place] [address] CBC panel Auto (Bld)on 07-02 Erythrocyte distribution width (RBC) [Ratio] 13.9 % Normal 11.5-14.5 [facility] Comment on above: Performed By: #### D RUBL #### [facility] (36840) [facility] ([facility]) [address] [place] [address] Hematocrit (Bld) [Volume fraction] 33.6 % Low 36.0-46.0 [facility] Comment on above: Performed By: #### D RUBL #### [facility] (09523) [facility] ([facility]) [address] [place] [address] Hemoglobin (Bld) [Mass/Vol] 10.9 g/dL Low 12.0-16.0 [facility] Comment on above: Performed By: #### D RUBL #### [facility] (96032) [facility] ([facility]) [address] [place] [id number] MCH (RBC) [Entitic mass] 28.0 pg Normal 26.0-34.0 [facility] Comment on above: Performed By: #### D RUBL #### [facility] (03400) [facility] ([facility]) [address] [place] [address] MCHC (RBC) [Mass/Vol] 32.4 g/dL Normal 32.0-36.0 [facility] Comment on above: Performed By: #### D RUBL #### [facility] (65288) [facility] ([facility]) [address] [place] [id number] MCV (RBC) [Entitic vol] 86 fL Normal 80-100 [facility] Comment on above: Performed By: #### D RUBL #### [facility] (71214) [facility] ([facility]) [address] [place] [address] Nucleated RBC/100 WBC (Bld) [Ratio] 0.0 /100 WBCs Normal 0.0-0.0 [facility] Comment on above: Performed By: #### D RUBL #### [facility] (47449) [facility] ([facility]) [address] [place] [address] Platelets (Bld) [#/Vol] 67 x10*3/uL Low 150-450 [facility] Comment on above: Performed By: #### D RUBL #### [facility] (87722) [facility] ([facility]) [address] [place] [address] RBC (Bld) [#/Vol] 3.89 x10*6/uL Low 4.00-5.20 [facility] Comment on above: Performed By: #### D RUBL #### [facility] (70160) [facility] ([facility] [address] [place] [address] WBC (Bld) [#/Vol] 13.4 x10*3/uL High 4.4-11.3 [facility] Comment on above: Performed By: #### D RUBL #### [facility] (03365) [facility] ([facility]) [address] [place] [address] Glucose Test strip manual (B ld) [Mass/Vol]on 07-02-2024 Glucose [Mass/Vol] 153 mg/dL High 74-99 [facility] Comment on above: Performed By: #### 2 524-7 #### [facility] (08193) [facility] ([facility] [address] [place] [address] Glucose [Mass/Vol] 150 mg/dL High 74-99 [facility] Comment on above: Performed By: #### 2 524-7 #### [facility] (32661) [facility] ([facility] [address] [place] [address] Glucose [Mass/Vol] 174 mg/dL High [address] [place] [address] Comment on above: Performed By: #### 2 524-7 #### [facility] (48131) [facility] ([facility]) [address] [place] [address] Glucose [Mass/Vol] 204 mg/dL High [address] [place] [address] Comment on above: Performed By: #### 2 524-7 #### [facility] (20097) [facility] ([facility]) [address] [place] [address] Glucose [Mass/Vol] 214 mg/dL High [address] [place] [address] Comment on above: Performed By: #### 2 524-7 #### [facility] (24173) [facility] ([facility] [address] [place] [address] Glucose [Mass/Vol] 197 mg/dL High [address] [place] [address] Comment on above: Performed By: #### 2 524-7 #### [facility] (79159) [facility] ([facility]) [address] [place] [address] Glucose [Mass/Vol] 162 mg/dL [address] Comment on above: Performed By: #### D RUBL #### [facility] (64252) [facility] ([facility] [address] [place] [address] Glucose [Mass/Vol] 165 mg/dL High [address] [place] [address] Comment on above: Performed By: #### D RUBL #### [facility] (92653) [facility] ([facility]) [address] [place] [address] Glucose [Mass/Vol] 157 mg/dL High [address] [place] [address] Comment on above: Performed By: #### D RUBL #### [facility] (08321) [facility] ([facility]) [address] [place] [address] Glucose [Mass/Vol] 172 mg/dL High [address] [place] [address] Comment on above: Performed By: #### D RUBL #### [facility] (59029) [facility] ([facility] [address] [place] [address] Glucose [Mass/Vol] 198 mg/dL High [address] [place] [address] Comment on above: Performed By: #### D RUBL #### [facility] (41517) [facility] ([facility] [address] [place] [address] Glucose [Mass/Vol] 231 mg/dL High [address] [place] [address] Comment on above: Performed By: #### D RUBL #### [facility] (06491) [facility] ([facility] [address] [place] [address] Glucose [Mass/Vol] 193 mg/dL High [address] [place] [address] Comment on above: Performed By: #### D RUBL #### [facility] (93541) [facility] ([facility] [address] [place] [address] Glucose [Mass/Vol] 191 mg/dL [address] Comment on above: Performed By: #### D RUBL #### [facility] (45023) [facility] ([facility] [address] [place] [address] Glucose [Mass/Vol] 215 mg/dL High [address] [place] [address] Comment on above: Performed By: #### 5 7021-8 #### [facility] (82153) [facility] ([facility] [address] [place] [address] Glucose [Mass/Vol] 217 mg/dL High [address] [place] [address] Comment on above: Performed By: #### 5 7021-8 #### [facility] (70058) [facility] ([facility] [address] [place] [address] Glucose [Mass/Vol] 245 mg/dL High [address] [place] [address] Comment on above: Performed By: #### 5 7021-8 #### [facility] (05269) [facility] ([facility] [address] [place] [address] Renal function 2000 panelon 07-02-2024 Albumin BCP dye [Mass/Vol] 2.7 g/dL Low 3.4-5.0 [facility] Comment on above: Performed By: #### D RUBL #### [facility] (61208) [facility] ([facility] [address] [place] [address] Anion gap [Moles/Vol] 9 mmol/L Low 10-20 [facility] Comment on above: Performed By: #### D RUBL #### [facility] (32738) [facility] ([facility] [address] [place] [address] Calcium [Mass/Vol] 8.8 mg/dL Normal 8.6-10.3 [facility] Comment on above: Performed By: #### D RUBL #### [facility] (31727) [facility] ([facility] [address] [place] [address] Chloride [Moles/Vol] 109 mmol/L High 98-107 [facility] Comment on above: Performed By: #### D RUBL #### [facility] (79685) [facility] ([facility] [address] [place] [address] CO2 [Moles/Vol] 25 mmol/L Normal 21-32 [facility] Comment on above: Performed By: #### D RUBL #### [facility] (57936) [facility] ([facility] [address] [place] [address] Creatinine [Mass/Vol] 0.81 mg/dL Normal 0.50-1.05 [facility] Comment on above: Performed By: #### D RUBL #### [facility] (78679) [facility] ([facility]) [address] [place] [address] Glomerular filtration rate/1.73 sq M.predicted 87 mL/min/1.73m*2 Normal >60 [facility] Comment on above: Result Comment: Calc ulations of estimated GFR are performed using the 2020 CKD-EPI Study Refit equation without the race variable for the IDMS-Traceable creatinine methods. https://jasn.asnjournals.org/content/early/ASN.101785 7204 Performed By: #### Joana RUBL #### [facility] (88421) [facility] ([facility] [address] [place] [address] Glucose [Mass/Vol] 212 mg/dL High 74-99 [facility] Comment on above: Performed By: #### Joana RUBL #### [facility] (75139) [facility] ([facility] [address] [place] [address] Phosphate [Mass/Vol] 1.9 mg/dL Low 2.5-4.9 [facility] Comment on above: Result Comment: The performance characteristics of phosphorus testing in heparinized plasma have been validated by the individual laboratory site where testing is performed. Testing on heparinized plasma is not approved by the FDA; however, such approval is not necessary. Performed By: #### Joana RUBL #### [facility] (63381) [facility] ([facility] [address] [place] [address] Potassium [Moles/Vol] 3.9 mmol/L Normal 3.5-5.3 [facility] Comment on above: Performed By: #### Joana RUBL #### [facility] (44853) [facility] ([facility] [address] [place] [address] Sodium [Moles/Vol] 139 mmol/L Normal 136-145 [facility] Comment on above: Performed By: #### D RUBL #### [facility] (79903) [facility] ([facility] [address] [place] [address] Urea nitrogen [Mass/Vol] 49 mg/dL High 6-23 [facility] Comment on above: Performed By: #### D RUBWesley #### [facility] (68712) [facility] ([facility] [address] [place] [address] CBC panel Auto (Bld)on 07-01 Erythrocyte distribution width (RBC) [Ratio] 14.0 % Normal 11.5-14.5 [facility] Comment on above: Performed By: #### 5 0957-0 #### [facility] (92206) [facility] ([facility] [address] [place] [address] Hematocrit (Bld) [Volume fraction] 33.6 % Low 36.0-46.0 [facility] Comment on above: Performed By: #### 5 0957-0 #### [facility] (91877) [facility] ([facility] [address] [place] [address] Hemoglobin (Bld) [Mass/Vol] 11.0 g/dL Low 12.0-16.0 [facility] Comment on above: Performed By: #### 5 0957-0 #### [facility] (82513) [facility] ([facility] [address] [place] [address] MCH (RBC) [Entitic mass] 28.1 pg Normal 26.0-34.0 [facility] Comment on above: Performed By: #### 5 0957-0 #### [facility] (70169) [facility] ([facility] [address] [place] [address] MCHC (RBC) [Mass/Vol] 32.7 g/dL Normal 32.0-36.0 [facility] Comment on above: Performed By: #### 5 0957-0 #### [facility] (86941) [facility] ([facility]) [address] [place] [id number] MCV (RBC) [Entitic vol] 86 fL Normal 80-100 [facility] Comment on above: Performed By: #### 5 0957-0 #### [facility] (63063) [facility] ([facility] [address] [place] [address] Nucleated RBC/100 WBC (Bld) [Ratio] 0.0 /100 WBCs Normal 0.0-0.0 [facility] Comment on above: Performed By: #### 5 0957-0 #### [facility] (71440) [facility] ([facility] [address] [place] [address] Platelets (Bld) [#/Vol] 50 x10*3/uL Low 150-450 [facility] Comment on above: Performed By: #### 5 0957-0 #### [facility] (11569) [facility] ([facility] [address] [place] [address] RBC (Bld) [#/Vol] 3.92 x10*6/uL Low 4.00-5.20 [facility] Comment on above: Performed By: #### 5 0957-0 #### [facility] (54513) [facility] ([facility] [address] [place] [id number] WBC (Bld) [#/Vol] 10.7 x10*3/uL Normal 4.4-11.3 [facility] Comment on above: Performed By: #### 5 0957-0 #### [facility] (60148) [facility] ([facility]) [address] [place] [id number] Glucose Test strip manual (B ld) [Mass/Vol]on 07-01-2024 Glucose [Mass/Vol] 361 mg/dL [address] Comment on above: Performed By: #### 5 7021-8 #### [facility] (83249) [facility] ([facility] [address] [place] [address] Glucose [Mass/Vol] 362 mg/dL [address] Comment on above: Performed By: #### 5 7021-8 #### [facility] (05379) [facility] ([facility] [address] [place] [id number] Glucose [Mass/Vol] 365 mg/dL High [address] [place] [address] Comment on above: Performed By: #### 5 7021-8 #### [facility] (70102) [facility] ([facility] [address] [place] [address] Glucose [Mass/Vol] 395 mg/dL High [address] [place] [address] Comment on above: Performed By: #### 5 7021-8 #### [facility] (05905) [facility] ([facility] [address] [place] [address] Glucose [Mass/Vol] 419 mg/dL [address] Comment on above: Performed By: #### 5 7021-8 #### [facility] (43271) [facility] ([facility] [address] [place] [address] Glucose [Mass/Vol] 480 mg/dL [address] Comment on above: Result Comment: MD Tubbs otified Performed By: #### 5 7021-8 #### [facility] (67757) [facility] ([facility] [address] [place] [address] Glucose [Mass/Vol] 453 mg/dL [address] Comment on above: Result Comment: RN N OTIFIED Performed By: #### 5 0957-0 #### [facility] (62698) [facility] ([facility] [address] [place] [address] Glucose [Mass/Vol] 465 mg/dL [address] Comment on above: Result Comment: RN N OTIFIED Performed By: #### 5 0957-0 #### [facility] (83132) [facility] ([facility] [address] [place] [address] Glucose [Mass/Vol] 377 mg/dL [address] Comment on above: Performed By: #### 5 0957-0 #### [facility] (97691) [facility] ([facility] [address] [place] [address] Glucose [Mass/Vol] 390 mg/dL High 74-99 [facility] Comment on above: Performed By: #### 5 0957-0 #### [facility] (60527) [facility] ([facility] [address] [place] [address] Renal function 2000 panelon 07-01-2024 Albumin BCP dye [Mass/Vol] 2.7 g/dL Low 3.4-5.0 [facility] Comment on above: Performed By: #### 5 7021-8 #### [facility] (88310) [facility] ([facility] [address] [place] [address] Anion gap [Moles/Vol] 11 mmol/L Normal 10-20 [facility] Comment on above: Performed By: #### 5 7021-8 #### [facility] (26396) [facility] ([facility] [address] [place] [address] Calcium [Mass/Vol] 8.7 mg/dL Normal 8.6-10.3 [facility] Comment on above: Performed By: #### 5 7021-8 #### [facility] (91580) [facility] ([facility] [address] [place] [address] Chloride [Moles/Vol] 103 mmol/L Normal 98-107 [facility] Comment on above: Performed By: #### 5 7021-8 #### [facility] (40507) [facility] ([facility] [address] [place] [address] CO2 [Moles/Vol] 23 mmol/L Normal 21-32 [facility] Comment on above: Performed By: #### 5 7021-8 #### [facility] (27628) [facility] ([facility] [address] [place] [address] Creatinine [Mass/Vol] 0.96 mg/dL Normal 0.50-1.05 [facility] Comment on above: Performed By: #### 5 7021-8 #### [facility] (34194) [facility] ([facility] [address] [place] [address] Glomerular filtration rate/1.73 sq M.predicted 71 mL/min/1.73m*2 Normal >60 [facility] Comment on above: Result Comment: Calc ulations of estimated GFR are performed using the 2020 CKD-EPI Study Refit equation without the race variable for the IDMS-Traceable creatinine methods. https://jasn.asnjournals.org/content/early//ASN.926176 5024 Performed By: #### 5 7021-8 #### [facility] (38413) [facility] ([facility] [address] [place] [address] Glucose [Mass/Vol] 439 mg/dL High 74-99 [facility] Comment on above: Performed By: #### 5 7021-8 #### [facility] (43083) [facility] ([facility] [address] [place] [address] Phosphate [Mass/Vol] 1.6 mg/dL Low 2.5-4.9 [facility] Comment on above: Result Comment: The performance characteristics of phosphorus testing in heparinized plasma have been validated by the individual laboratory site where testing is performed. Testing on heparinized plasma is not approved by the FDA; however, such approval is not necessary. Performed By: #### 5 7021-8 #### [facility] (56016) [facility] ([facility] [address] [place] [address] Potassium [Moles/Vol] 4.1 mmol/L Normal 3.5-5.3 [facility] Comment on above: Performed By: #### 5 7021-8 #### [facility] (71879) [facility] ([facility] [address] [place] [address] Sodium [Moles/Vol] 133 mmol/L Low 136-145 [facility] Comment on above: Performed By: #### 5 7021-8 #### [facility] (71512) [facility] ([facility] [place] [address] [place] [address] Urea nitrogen [Mass/Vol] 51 mg/dL High 6-23 [facility] Comment on above: Performed By: #### 5 7021-8 #### [facility] (73936) [facility] ([facility] [place] [address] [place] [address] Albumin BCP dye [Mass/Vol] 2.7 g/dL Low 3.4-5.0 [facility] Comment on above: Performed By: #### 5 0957-0 #### [facility] (68168) [facility] ([facility] [place] [address] [place] [address] Anion gap [Moles/Vol] 8 mmol/L Low 10-20 [facility] Comment on above: Performed By: #### 5 0957-0 #### [facility] (67301) [facility] ([facility] [place] [address] [place] [address] Calcium [Mass/Vol] 8.1 mg/dL Low 8.6-10.3 [facility] Comment on above: Performed By: #### 5 0957-0 #### [facility] (11781) [facility] ([facility] [place] [address] [place] [address] Chloride [Moles/Vol] 106 mmol/L Normal 98-107 [facility] Comment on above: Performed By: #### 5 0957-0 #### [facility] (05310) [facility] ([facility] [place] [address] [place] [address] CO2 [Moles/Vol] 24 mmol/L Normal 21-32 [facility] Comment on above: Performed By: #### 5 0957-0 #### [facility] (95141) [facility] ([facility] [place] [address] [place] [address] Creatinine [Mass/Vol] 0.73 mg/dL Normal 0.50-1.05 [facility] Comment on above: Performed By: #### 5 0957-0 #### [facility] (49858) [facility] ([facility] [place] [address] [place] [address] GFR/1.73 sq M.predicted MDRD (S/P/Bld) [Vol rate/Area] mL/min/{1.73_m2} Normal >60 [facility] Comment on above: Result Comment: Calc ulations of estimated GFR are performed using the 2020 CKD-EPI Study Refit equation without the race variable for the IDMS-Traceable creatinine methods. https://jasn.asnjournals.org/content/early//ASN.880908 7866 Performed By: #### 5 0957-0 #### [facility] (20751) [facility] ([facility] [address] [place] [address] Glucose [Mass/Vol] 408 mg/dL High 74-99 [facility] Comment on above: Performed By: #### 5 0957-0 #### [facility] (34918) [facility] LAB ([facility] [address] [place] [address] Phosphate [Mass/Vol] 2.8 mg/dL Normal 2.5-4.9 [facility] Comment on above: Result Comment: The performance characteristics of phosphorus testing in heparinized plasma have been validated by the individual laboratory site where testing is performed. Testing on heparinized plasma is not approved by the FDA; however, such approval is not necessary. Performed By: #### 5 0957-0 #### [facility] (75584) [facility] LAB ([facility] [address] [place] [address] Potassium [Moles/Vol] 4.4 mmol/L Normal 3.5-5.3 [facility] Comment on above: Performed By: #### 5 0957-0 #### [facility] (01510) [facility] LAB ([facility] [address] [place] [address] Sodium [Moles/Vol] 134 mmol/L Low 136-145 [facility] Comment on above: Performed By: #### 5 0957-0 #### [facility] (56705) [facility] LAB ([facility] [address] [place] [address] Urea nitrogen [Mass/Vol] 42 mg/dL High 6-23 [facility] Comment on above: Performed By: #### 5 0957-0 #### [facility] (22686) [facility] LAB ([facility] [address] [place] [address] CBC panel Auto (Bld)on 06-30 Erythrocyte distribution width (RBC) [Ratio] 13.7 % Normal 11.5-14.5 [facility] Comment on above: Performed By: #### 9 5423-0 #### [facility] (96272) [facility] LAB ([facility] [address] [place] [address] Hematocrit (Bld) [Volume fraction] 35.6 % Low 36.0-46.0 [facility] Comment on above: Performed By: #### 9 5423-0 #### [facility] (08584) [facility] LAB ([facility] [address] [place] [address] Hemoglobin (Bld) [Mass/Vol] 11.8 g/dL Low 12.0-16.0 [facility] Comment on above: Performed By: #### 9 5423-0 #### [facility] (49140) [facility] LAB ([facility]) [address] [place] [id number] MCH (RBC) [Entitic mass] 28.4 pg Normal 26.0-34.0 [facility] Comment on above: Performed By: #### 9 5423-0 #### [facility] (48977) [facility] LAB ([facility] [address] [place] [address] MCHC (RBC) [Mass/Vol] 33.1 g/dL Normal 32.0-36.0 [facility] Comment on above: Performed By: #### 9 5423-0 #### [facility] (76511) [facility] LAB ([facility]) [address] [place] [address] MCV (RBC) [Entitic vol] 86 fL Normal 80-100 [facility] Comment on above: Performed By: #### 9 5423-0 #### [facility] (75558) [facility] LAB ([facility] [address] [place] [address] Nucleated RBC/100 WBC (Bld) [Ratio] 0.0 /100 WBCs Normal 0.0-0.0 [facility] Comment on above: Performed By: #### 9 5423-0 #### [facility] (23637) [facility] LAB ([facility]) [address] [place] [address] Platelets (Bld) [#/Vol] 58 x10*3/uL Low 150-450 [facility] Comment on above: Performed By: #### 9 5423-0 #### [facility] (95104) [facility] LAB ([facility] [address] [place] [address] RBC (Bld) [#/Vol] 4.16 x10*6/uL Normal 4.00-5.20 [facility] Comment on above: Performed By: #### 9 5423-0 #### [facility] (88308) [facility] LAB ([facility] [address] [place] [address] WBC (Bld) [#/Vol] 8.6 x10*3/uL Normal 4.4-11.3 [facility] Comment on above: Performed By: #### 9 5423-0 #### [facility] (31773) [facility] ([facility] [address] [place] [address] Gas and Carbon monoxide and Electrolytes panel (BldA)on 06-30-2024 Anion gap 4 (BldA) [Moles/Vol] 12 mmo/L Normal 10-25 [facility] Comment on above: Performed By: #### 9 5423-0 #### [facility] (96307) [facility] LAB ([facility]) [address] [place] [address] Base excess Calc (Bld) [Moles/Vol] -3.8000 mmol/L Low -2.0-3.0 [facility] Comment on above: Performed By: #### 9 5423-0 #### [facility] (75427) [facility] LAB ([facility] [address] [place] [address] Calcium.ionized (BldA) [Moles/Vol] 1.17 mmol/L Normal 1.10-1.33 [facility] Comment on above: Performed By: #### 9 5423-0 #### [facility] (12533) [facility] LAB ([facility]) [address] [place] [address] Chloride (BldA) [Moles/Vol] 102 mmol/L Normal 98-107 [facility] Comment on above: Performed By: #### 9 5423-0 #### [facility] (96998) [facility] LAB ([facility]) [address] [place], [place] [id number] CO2 (Bld) [Partial pressure] 35 mm Hg Low 38-42 [facility] Comment on above: Performed By: #### 9 5423-0 #### [facility] (54627) [facility] LAB ([facility]) [address] [place], [place] [id number] Glucose [Mass/Vol] 318 mg/dL High 74-99 [facility] Comment on above: Performed By: #### 9 5423-0 #### [facility] (79317) [facility] LAB ([facility]) [address] [place], [place] [address] HCO3 (Bld) [Moles/Vol] 20.7 mmol/L Low 22.0-26.0 [facility] Comment on above: Performed By: #### 9 5423-0 #### [facility] (37051) [facility] LAB ([facility]) [address] [place], [place] [address] Hematocrit Est (Bld) [Volume fraction] 39.0 % Normal 36.0-46.0 [facility] Comment on above: Performed By: #### 9 5423-0 #### [facility] (45139) [facility] ([facility]) [address] [place] [address] Hemoglobin (Bld) [Mass/Vol] 13.0 g/dL Normal 12.0-16.0 [facility] Comment on above: Performed By: #### 9 5423-0 #### [facility] (29165) [facility] LAB ([facility]) [address] [place] [address] Inhaled oxygen concentration 28 % Normal [facility] Comment on above: Performed By: #### 9 5423-0 #### [facility] (79078) [facility] LAB ([facility]) [address] [place] [address] Lactate (BldA) [Moles/Vol] 2.7 mmol/L High 0.4-2.0 [facility] Comment on above: Performed By: #### 9 5423-0 #### [facility] (51218) [facility] LAB ([facility]) [address] [place] [address] Oxygen (Bld) [Partial pressure] 86 mm Hg Normal 85-95 [facility] Comment on above: Performed By: #### 9 5423-0 #### [facility] (08837) [facility] LAB ([facility]) [address] [place] [address] Oxyhemoglobin (BldA) [Mass fraction] 96.3 % Normal 94.0-98.0 [facility] Comment on above: Performed By: #### 9 5423-0 #### [facility] (65472) [facility] LAB ([facility]) [address] [place] [address] pH (Bld) 7.38 [pH] Normal 7.38-7.42 [facility] Comment on above: Performed By: #### 9 5423-0 #### [facility] (20480) [facility] LAB ([facility] [address] [place] [address] Potassium (BldA) [Moles/Vol] 3.6 mmol/L Normal 3.5-5.3 [facility] Comment on above: Performed By: #### 9 5423-0 #### [facility] (06727) [facility] LAB ([facility]) [address] [place] [address] Sodium (BldA) [Moles/Vol] 131 mmol/L Low 136-145 [facility] Comment on above: Performed By: #### 9 5423-0 #### [facility] (09152) [facility] LAB ([facility]) [address] [place] [address] Glucose Test strip manual (B ld) [Mass/Vol]on 06-30-2024 Glucose [Mass/Vol] 339 mg/dL High 74-99 [facility] Comment on above: Performed By: #### 5 0957-0 #### [facility] (93649) [facility] LAB ([facility]) [address] [place] [address] Glucose [Mass/Vol] 322 mg/dL High [address] Comment on above: Performed By: #### 5 0957-0 #### [facility] (94729) [facility] LAB ([facility]) [address] [place] [address] Glucose [Mass/Vol] 283 mg/dL High -99 [facility] Comment on above: Performed By: #### 9 5423-0 #### [facility] (22810) [facility] LAB ([facility]) [address] [place] [address] Lactateon 06-30-2024 Lactate [Moles/Vol] 3.4 mmol/L High 0.4-2.0 [facility] Comment on above: Order Comment: This assay is an FDA-cleared, in vitro diagnostic nucleic acid amplification test for the qualitative detection and differentiation of SARS CoV-2/ Influenza A/B from nasopharyngeal specimens collected from individuals with signs and symptoms of respiratory tract infections, and has been validated for use at [facility]. Negative results do not preclude COVID-19/ Influenza A/B infections and should not be used as the sole basis for diagnosis, treatment, or other management decisions. Testing for SARS CoV-2 is recommended only for patients who meet current clinical and/or epidemiological criteria defined by federal, state, or local public health directives. Performed By: #### 9 5423-0 #### [facility] (44770) [facility] LAB ([facility] [address] [place] [address] Renal function 2000 panelon 06-30-2024 Albumin BCP dye [Mass/Vol] 2.7 g/dL Low 3.4-5.0 [facility] Comment on above: Performed By: #### 9 5423-0 #### [facility] (52637) [facility] LAB ([facility] [address] [place] [address] Anion gap [Moles/Vol] 13 mmol/L Normal 10-20 [facility] Comment on above: Performed By: #### 9 5423-0 #### [facility] (35585) [facility] LAB ([facility] [address] [place] [address] Calcium [Mass/Vol] 8.0 mg/dL Low 8.6-10.3 [facility] Comment on above: Performed By: #### 9 5423-0 #### [facility] (39875) [facility] LAB ([facility]) [address] [place] [address] Chloride [Moles/Vol] 104 mmol/L Normal 98-107 [facility] Comment on above: Performed By: #### 9 5423-0 #### [facility] (31947) [facility] LAB ([facility]) [address] [place] [address] CO2 [Moles/Vol] 21 mmol/L Normal 21-32 [facility] Comment on above: Performed By: #### 9 5423-0 #### [facility] (27309) [facility] LAB ([facility] [address] [place] [address] Creatinine [Mass/Vol] 1.15 mg/dL High 0.50-1.05 [facility] Comment on above: Performed By: #### 9 5423-0 #### [facility] (32031) [facility] LAB ([facility]) [address] [place] [address] Glomerular filtration rate/1.73 sq M.predicted 57 mL/min/1.73m*2 Low >60 [facility] Comment on above: Result Comment: Calc ulations of estimated GFR are performed using the 2020 CKD-EPI Study Refit equation without the race variable for the IDMS-Traceable creatinine methods. https://jasn.asnjournals.org/content/early//ASN.769078 4156 Performed By: #### 9 5423-0 #### [facility] (82137) [facility] LAB ([facility]) [address] [place] [address] Glucose [Mass/Vol] 234 mg/dL High 74-99 [facility] Comment on above: Performed By: #### 9 5423-0 #### [facility] (34118) [facility] LAB ([facility] [address] [place] [address] Phosphate [Mass/Vol] 5.4 mg/dL High 2.5-4.9 [facility] Comment on above: Result Comment: The performance characteristics of phosphorus testing in heparinized plasma have been validated by the individual laboratory site where testing is performed. Testing on heparinized plasma is not approved by the FDA; however, such approval is not necessary. Performed By: #### 9 5423-0 #### [facility] (45511) [facility] LAB ([facility]) [address] [place] [address] Potassium [Moles/Vol] 4.4 mmol/L Normal 3.5-5.3 [facility] Comment on above: Performed By: #### 9 5423-0 #### [facility] (66102) [facility] ([facility]) [address] [place] [address] Sodium [Moles/Vol] 134 mmol/L Low 136-145 [facility] Comment on above: Performed By: #### 9 5423-0 #### [facility] (03838) [facility] LAB ([facility]) [address] [place] [address] Urea nitrogen [Mass/Vol] 42 mg/dL High 6-23 [facility] Comment on above: Performed By: #### 9 5423-0 #### [facility] (02670) [facility] ([facility] [address] [place] [address] TRANSTHORACIC ECHO (TTE) COM PLETEon 06-30-2024 TRANSTHORACIC ECHO (TTE) COMPLETE [facility], [address] [place] [address] and TRANSTHORACIC ECHOCARDIOGRAM REPORT Patient Name: ANA CRISTINA Felipe WILLIAM Reading Physician: [id number] Brian Conroy MD Study Date: 06/30/2024 Ordering Provider: [id number] ADIN HOOVER MRN/PID: [id number] Fellow: Nurse: Date of /Age: 6 1970 / First Line Supervisor: Vicente roman Gender assigned at F Additional Staff: : Height: 163.00 cm Admit Date: 06/29/2024 Weight: 69.00 kg Admission Status: Inpatient - Routine BSA / BMI: 1.74 m2 / 25.97 kg/m2 Blood Pressure: 95/44 mmHg Department Location: [facility] Non Invasive Study Type: TRANSTHORACIC ECHO (TTE) COMPLETE Diagnosis/ICD: Sepsis, unspecified organism-A41.9 Indication: Septic Bacteria Due to Escherichia Coli CPT Code: Echo Complete w Full Doppler-21064 Patient History: Pertinent History: Sepsis. Study Detail: [...] LA Area A2C: 18.1 cm2 LA Major Fisher A4C: 5.1 cm LA Major Fisher A2C: 4.9 cm LA Volume Index: 31.3 ml/m2 LA Vol A4C: 45.9 ml LA Vol A2C: 52.9 ml LA Vol Index BSA: 28.3 ml/m2 RIGHT ATRIUM: Normal Ranges: RA Vol A4C: 52.5 ml (8.3-19.5ml) RA Vol Index A4C: 30.1 ml/m2 RA Area A4C: 18.1 cm2 RA Major Fisher A4C: 5.3 cm AORTA MEASUREMENTS: Normal Ranges: [...] cm (18-25cm) (more content not included)... Normal [facility] ACUTE TOXICOLOGY PANEL, BLOO Don 06-29-2024 Acetaminophen [Mass/Vol] ug/mL Normal 10.0-30.0 [facility] Comment on above: Performed By: #### D RUBL #### [facility] (91399) [facility] ([facility]) [address] [place] [address] Ethanol [Mass/Vol] mg/dL Normal <=10 [facility] Comment on above: Performed By: #### D RUBL #### [facility] (92344) [facility] LAB ([facility]) [address] [place] [address] Salicylates [Mass/Vol] mg/dL Normal 4-20 [facility] Comment on above: Performed By: #### Joana RUBL #### [facility] (24201) [facility] LAB ([facility]) [address] [place] [address] Ammoniaon 06-29-2024 Ammonia (P) [Moles/Vol] 23 umol/L Normal 16-53 [facility] Comment on above: Result Comment: MILD HEMOLYSIS DETECTED. The result may be falsely elevated due to hemolysis or other interferents. Clinical correlation is recommended. Repeat testing may be considered. Performed By: #### 1 6362-6 #### [facility] (42896) [facility] LAB ([facility]) [address] [place] [address] Bacteria identifiedon 2024 Bacteria identified Cx Nom (U) Test: Urine Culture Specimen Source: Clean Catch/Voided Specimen Type: Urine Specimen Date: 06/29/20241729 Result Date: 06/30/20241949 Result Status: Final result Abnormal: No Resulting Lab: [facility] [address] [place] [address] CULTURE Clinically insignificant growth based on current clinical standards. Normal [facility] Comment on above: Performed By: #### 5 0957-0 #### [facility] (68819) [facility] LAB ([facility]) [address] [place] [address] Bacteria identified Cx Nom (Bld) Test: Blood Culture Specimen Source: Peripheral Venipuncture Specimen Type: Blood culture Specimen Date: 06/29/2024 0642 Result Date: 07/01/2024 1227 Result Status: Final result Abnormal: Yes Resulting Lab: [facility] [address] [place] [address] CULTURE Escherichia coli (Abnormal) BLOOD CULTURE BOTTLE [...] Susceptible TRIMETHOPRIM/SULFAMETH OXAZOLE <=0.5/9.5 ug/ml Susceptible Abnormal [facility] Comment on above: Performed By: #### 2 4323-8 #### [facility]U (60968) [facility] LAB ([facility] [address] [place] [address] Bacteria identified Cx Nom (Bld) Test: Blood Culture Specimen Source: Peripheral Venipuncture Specimen Type: Blood culture Specimen Date: 06/29/2024641 Result Date: 07/01/2024 1301 Result Status: Final result Abnormal: Yes Resulting Lab: [facility] [address] [place] [address] CULTURE Escherichia coli (Abnormal) For antibiotic susceptibility results see Specimen # - [id number], 06-29-24 BLOOD CULTURE BOTTLE - Positive Aerobic Bottle Received 2 aerobic bottles under the same accession number. STAIN Gram negative bacilli Aerobic Bottle Positive Gram negative bacilli Aerobic Bottle Positive Abnormal [facility] Comment on above: Performed By: #### 2 4323-8 #### [facility] (48850) [facility] LAB ([facility] [address] [place] [address] CBC W Auto Differential pane l (Bld)on 06-29-2024 Erythrocyte distribution width (RBC) [Ratio] 13.5 % Normal 11.5-14.5 [facility] Comment on above: Order Comment: The [...] By: #### 5 7021-8 #### [facility] (80124) [facility] LAB ([facility] [address] [place] [address] Hematocrit (Bld) [Volume fraction] 46.9 % High 36.0-46.0 [facility] Comment on above: Order Comment: The [...] By: #### 5 7021-8 #### [facility] (03604) [facility] LAB ([facility]) [address] [place] [address] Hemoglobin (Bld) [Mass/Vol] 15.5 g/dL Normal 12.0-16.0 [facility] Comment on above: Order Comment: The [...] By: #### 5 7021-8 #### [facility] (84703) [facility] ([facility] [address] [place] [address] Immature granulocytes (Bld) [#/Vol] 0.06 x10*3/uL Normal 0.00-0.70 [facility] Comment on above: Order Comment: The [...] By: #### 5 7021-8 #### [facility] (54408) [facility] ([facility]) [address] [place] [id number] Immature granulocytes/100 WBC (Bld) 0.6 % Normal 0.0-0.9 [facility] Comment on above: Order Comment: The [...] By: #### 5 7021-8 #### [facility] (11040) [facility] LAB ([facility] [address] [place] [address] MCH (RBC) [Entitic mass] 28.1 pg Normal 26.0-34.0 [facility] Comment on above: Order Comment: The [...] By: #### 5 7021-8 #### [facility] (84810) [facility] LAB ([facility] [address] [place] [address] MCHC (RBC) [Mass/Vol] 33.0 g/dL Normal 32.0-36.0 [facility] Comment on above: Order Comment: The [...] By: #### 5 7021-8 #### [facility] (40337) [facility] LAB ([facility] [address] [place] [address] MCV (RBC) [Entitic vol] 85 fL Normal 80-100 [facility] Comment on above: Order Comment: The [...] By: #### 5 7021-8 #### [facility] (33363) [facility] ([facility] [address] [place] [address] Nucleated RBC/100 WBC (Bld) [Ratio] 0.0 /100 WBCs Normal 0.0-0.0 [facility] Comment on above: Order Comment: The [...] By: #### 5 7021-8 #### [facility] (10450) [facility] LAB ([facility] [address] [place] [address] Platelets (Bld) [#/Vol] 175 x10*3/uL Normal 150-450 [facility] Comment on above: Order Comment: The [...] By: #### 5 7021-8 #### [facility] (15380) [facility] ([facility] [address] [place] [address] RBC (Bld) [#/Vol] 5.52 x10*6/uL High 4.00-5.20 [facility] Comment on above: Order Comment: The p [...] By: #### 5 7021-8 #### [facility] (33608) [facility] ([facility] [address] [place] [address] WBC (Bld) [#/Vol] 10.1 x10*3/uL Normal 4.4-11.3 [facility] Comment on above: Order Comment: The p [...] By: #### 5 7021-8 #### [facility] (48834) [facility] ([facility] [address] [place] [address] CBC panel Auto (Bld)on 06-29 Erythrocyte distribution width (RBC) [Ratio] 13.7 % Normal 11.5-14.5 [facility] Comment on above: Performed By: #### 3 040-3 #### [facility] (40684) [facility] ([facility] [address] [place] [address] Hematocrit (Bld) [Volume fraction] 34.7 % Low 36.0-46.0 [facility] Comment on above: Performed By: #### 3 040-3 #### [facility] (22137) [facility] ([facility] [place] [address] [place] [address] Hemoglobin (Bld) [Mass/Vol] 11.4 g/dL Low 12.0-16.0 [facility] Comment on above: Performed By: #### 3 040-3 #### CHIT[facility] SIDDIQI (81822) [facility] ([facility] [place] [address] [place] [id number] MCH (RBC) [Entitic mass] 28.4 pg Normal 26.0-34.0 [facility] Comment on above: Performed By: #### 3 040-3 #### CHIT[facility] SIDDIQI (22578) [facility] ([facility] [place] [address] [place] [id number] MCHC (RBC) [Mass/Vol] 32.9 g/dL Normal 32.0-36.0 [facility] Comment on above: Performed By: #### 3 040-3 #### CHITO SIDDIQI (99290) [facility] ([facility] [place] [address] [place] [id number] MCV (RBC) [Entitic vol] 87 fL Normal 80-100 [facility] Comment on above: Performed By: #### 3 040-3 #### [facility]IDDI[facility] (24028) [facility] DEMOLISHED 2001 LAB ([facility] [address] [id number] Nucleated RBC/100 WBC (Bld) [Ratio] 0.0 /100 WBCs Normal 0.0-0.0 [facility] Comment on above: Performed By: #### 3 040-3 #### [facility] (81085) [facility] ([facility] [address] [id number] Platelets (Bld) [#/Vol] 103 x10*3/uL Low 150-450 [facility] Comment on above: Performed By: #### 3 040-3 #### [facility] (86000) [facility] LAB ([facility] [address] [place] [address] RBC (Bld) [#/Vol] 4.01 x10*6/uL Normal 4.00-5.20 [facility] Comment on above: Performed By: #### 3 040-3 #### [facility] (94042) [facility] LAB ([facility] [address] [id number] WBC (Bld) [#/Vol] 14.9 x10*3/uL High 4.4-11.3 [facility] Comment on above: Performed By: #### 3 040-3 #### [facility] (95962) [facility] LAB ([facility] [id number] ABDOMEN PELVIS W IV CONTR Velia 06-29-2024 CT ABDOMEN PELVIS W IV CONTRAST STUDY: CT Angiogram of the Chest, CT Abdomen and Pelvis with IV Contrast; 06/29/2024 8:07 AM INDICATION: Shortness of breath and pain. Abdominal pain/tenderness to palpation. Fever. COMPARISON: None Available. ACCESSION NUMBER(S): [id number], [id number] ORDERING CLINICIAN: FINN ESTRELLA TECHNIQUE: CTA of [...] artery calcifications. Signed by Jay Perdomo MD [facility] CT ANGIO CHEST FOR PULMONARY EMBOLISMon 06-29-2024 CT ANGIO CHEST FOR PULMONARY EMBOLISM STUDY: CT Angiogram of the Chest, CT Abdomen and Pelvis with IV Contrast; 06/29/2024 8:07 AM INDICATION: Shortness of breath and pain. Abdominal pain/tenderness to palpation. Fever. COMPARISON: None Available. ACCESSION NUMBER(S): [id number], [id number] ORDERING CLINICIAN: FINN ESTRELLA TECHNIQUE: CTA of [...] artery calcifications. Signed by Jay Perdomo MD [facility] CT HEAD WO IV CONTRASTon CT HEAD WO IV CONTRAST Interpreted By: Erik Paz, STUDY: CT HEAD WO IV CONTRAST; 06/29/2024 7:43 am INDICATION: Signs/Symptoms:confusi on. COMPARISON: None. ACCESSION NUMBER(S): [id number] ORDERING CLINICIAN: FINN CARPINTERO-PRISCILA TECHNIQUE: Unenhanced images were obtained through the [...] Erik Paz 06/29/2024 8:19 AM Dictation workstation: [id number] Normal [facility] Comprehensive metabolic 2000 panelon 06-29-2024 Albumin BCP dye [Mass/Vol] 2.7 g/dL Low 3.4-5.0 [facility] Comment on above: Performed By: #### 9 5423-0 #### [facility] (79945) [facility] LAB ([facility] [address] [place] [address] ALP [Catalytic activity/Vol] 89 U/L Normal 33-110 [facility] Comment on above: Performed By: #### 9 5423-0 #### [facility] (96482) [facility] LAB ([facility] [address] [id number] ALT With P-5'-P [Catalytic activity/Vol] 126 U/L High 7-45 [facility] Comment on above: Result Comment: Camila ents treated with Sulfasalazine may generate falsely decreased results for ALT. Performed By: #### 9 5423-0 #### [facility] (71189) [facility] LAB ([facility] [address] [id number] Anion gap [Moles/Vol] 11 mmol/L Normal 10-20 [facility] Comment on above: Performed By: #### 9 5423-0 #### [facility] (17816) [facility] LAB ([facility]) [address] [id number] AST With P-5'-P [Catalytic activity/Vol] 99 U/L High 9-39 [facility] Comment on above: Performed By: #### 9 5423-0 #### [facility] (44136) [facility] LAB ([facility] [address] [place] [address] Bilirubin [Mass/Vol] 0.8 mg/dL Normal 0.0-1.2 [facility] Comment on above: Performed By: #### 9 5423-0 #### [facility] (00592) [facility] LAB ([facility]) [address] [place] [address] Calcium [Mass/Vol] 8.1 mg/dL Low 8.6-10.3 [facility] Comment on above: Performed By: #### 9 5423-0 #### [facility] (10652) [facility] LAB ([facility] [address] [place] [address] Chloride [Moles/Vol] 103 mmol/L Normal 98-107 [facility] Comment on above: Performed By: #### 9 5423-0 #### [facility] (74226) [facility] 2001 LAB ([facility]) [address] [place] [address] CO2 [Moles/Vol] 24 mmol/L Normal 21-32 [facility] Comment on above: Performed By: #### 9 5423-0 #### [facility] (90664) [facility] LAB ([facility] [address] [place] [address] Creatinine [Mass/Vol] 1.23 mg/dL High 0.50-1.05 [facility] Comment on above: Performed By: #### 9 5423-0 #### [facility] (78562) [facility] LAB ([facility]) [address] [place] [address] Glomerular filtration rate/1.73 sq M.predicted 53 mL/min/1.73m*2 Low >60 [facility] Comment on above: Result Comment: Calc ulations of estimated GFR are performed using the 2020 CKD-EPI Study Refit equation without the race variable for the IDMS-Traceable creatinine methods. https://jasn.asnjournals.org/content//ASN.986212 6067 Performed By: #### 9 5423-0 #### [facility] (55090) [facility] LAB ([facility] [address] [place] [address] Glucose [Mass/Vol] 193 mg/dL High 74-99 [facility] Comment on above: Performed By: #### 9 5423-0 #### [facility] (14632) [facility] LAB ([facility] [address] [place] [address] Potassium [Moles/Vol] 3.5 mmol/L Normal 3.5-5.3 [facility] Comment on above: Performed By: #### 9 5423-0 #### [facility] (16110) [facility] LAB ([facility] [address] [place] [address] Protein [Mass/Vol] 4.8 g/dL Low 6.4-8.2 [facility] Comment on above: Performed By: #### 9 5423-0 #### [facility] (60120) [facility] LAB ([facility] [address] [place] [address] Sodium [Moles/Vol] 134 mmol/L Low 136-145 [facility] Comment on above: Performed By: #### 9 5423-0 #### [facility] (09504) [facility] LAB ([facility] [address] [place] [address] Urea nitrogen [Mass/Vol] 39 mg/dL High 6-23 [facility] Comment on above: Performed By: #### 9 5423-0 #### [facility] (33826) [facility] LAB ([facility] [address] [place] [address] Albumin BCP dye [Mass/Vol] 3.7 g/dL Normal 3.4-5.0 [facility] Comment on above: Performed By: #### 2 4323-8 #### [facility] (60711) [facility] LAB ([facility] [address] [place] [address] ALP [Catalytic activity/Vol] 174 U/L High 33-110 [facility] Comment on above: Performed By: #### 2 4323-8 #### [facility] (10256) [facility] LAB ([facility] [address] [place] [address] ALT With P-5'-P [Catalytic activity/Vol] 166 U/L High 7-45 [facility] Comment on above: Result Comment: Camila ents treated with Sulfasalazine may generate falsely decreased results for ALT. Performed By: #### 2 4323-8 #### [facility] (35142) [facility] LAB ([facility] [address] [place] [address] Anion gap [Moles/Vol] 16 mmol/L Normal 10-20 [facility] Comment on above: Performed By: #### 2 432-8 #### [facility] (94350) [facility] 2001 LAB ([facility] [address] [place] [address] AST With P-5'-P [Catalytic activity/Vol] 121 U/L High 9-39 [facility] Comment on above: Performed By: #### 2 432-8 #### [facility] (44064) [facility] 2001 LAB ([facility] [address] [place] [address] Bilirubin [Mass/Vol] 0.6 mg/dL Normal 0.0-1.2 [facility] Comment on above: Performed By: #### 2 4323-8 #### [facility] (57550) [facility] LAB ([facility] [address] [place] [address] Calcium [Mass/Vol] 9.6 mg/dL Normal 8.6-10.3 [facility] Comment on above: Performed By: #### 2 4323-8 #### [facility] (13066) [facility] 2001 LAB ([facility] [address] [place] [address] Chloride [Moles/Vol] 97 mmol/L Low 98-107 [facility] Comment on above: Performed By: #### 2 4323-8 #### [facility] (87213) [facility] 2001 LAB ([facility] [address] [place] [address] CO2 [Moles/Vol] 27 mmol/L Normal 21-32 [facility] Comment on above: Performed By: #### 2 4323-8 #### [facility] (22724) [facility] 2001 LAB ([facility] [address] [place] [address] Creatinine [Mass/Vol] 0.90 mg/dL Normal 0.50-1.05 [facility] Comment on above: Performed By: #### 2 432-8 #### [facility] (23604) [facility] LAB ([facility] [address] [place] [address] Glomerular filtration rate/1.73 sq M.predicted 77 mL/min/1.73m*2 Normal >60 [facility] Comment on above: Result Comment: Calc ulations of estimated GFR are performed using the 2020 CKD-EPI Study Refit equation without the race variable for the IDMS-Traceable creatinine methods. https://jasn.asnjournals.org/content/early//ASN.666264 5972 Performed By: #### 2 4323-8 #### [facility] (21898) [facility] LAB ([facility] [address] [place] [address] Glucose [Mass/Vol] 289 mg/dL High 74-99 [facility] Comment on above: Performed By: #### 2 432-8 #### [facility] (27026) [facility] LAB ([facility] [address] [place] [address] Potassium [Moles/Vol] 4.3 mmol/L Normal 3.5-5.3 [facility] Comment on above: Performed By: #### 2 4323-8 #### [facility] (47561) [facility] LAB ([facility] [address] [place] [address] Protein [Mass/Vol] 6.9 g/dL Normal 6.4-8.2 [facility] Comment on above: Performed By: #### 2 4323-8 #### [facility] (42489) [facility] 2001 LAB ([facility] [address] [place] [address] Sodium [Moles/Vol] 136 mmol/L Normal 136-145 [facility] Comment on above: Performed By: #### 2 4323-8 #### [facility] (65427) [facility] LAB ([facility]) [address] [id number] Urea nitrogen [Mass/Vol] 31 mg/dL High 6-23 [facility] Comment on above: Performed By: #### 2 4323-8 #### [facility] (79597) [facility] LAB ([facility]) [address] [place] [address] DRUG SCREEN,URINEon 06-30-19 25 Amphetamines Screen Ql (U) Negative Normal Presumptive Negative [facility] Comment on above: Order Comment: Venip [...] By: #### 3 040-3 #### [facility] (32019) [facility] LAB ([facility] [address] [place] [address] Barbiturates Screen Ql (U) Negative Normal Presumptive Negative [facility] Comment on above: Order Comment: Venip uncture immediately after or during the administration of Metamizole may lead to falsely low results. Testing should be performed immediately prior to Metamizole dosing. Result Comment: CUTO FF LEVEL: 200 NG/ML Performed By: #### 3 040-3 #### [facility] (35307) [facility] LAB ([facility] [address] [place] [address] Benzodiazepines Ql (U) Negative Normal Presumptive Negative [facility] Comment on above: Order Comment: Venip uncture immediately after or during the administration of Metamizole may lead to falsely low results. Testing should be performed immediately prior to Metamizole dosing. Result Comment: CUTO FF LEVEL: 200 NG/ML Performed By: #### 3 040-3 #### [facility] (34888) [facility] LAB ([facility]) [address] [place] [address] Benzoylecgonine Screen Ql (U) Negative Normal Presumptive Negative [facility] Comment on above: Order Comment: Venip uncture immediately after or during the administration of Metamizole may lead to falsely low results. Testing should be performed immediately prior to Metamizole dosing. Result Comment: CUTO FF LEVEL: 150 NG/ML Performed By: #### 3 040-3 #### [facility] (50871) [facility] LAB ([facility] [address] [place] [address] Cannabinoids Screen Ql (U) Negative Normal Presumptive Negative [facility] Comment on above: Order Comment: Venip uncture immediately after or during the administration of Metamizole may lead to falsely low results. Testing should be performed immediately prior to Metamizole dosing. Result Comment: CUTO FF LEVEL: 50 NG/ML Performed By: #### 3 040-3 #### [facility] (00843) [facility] 2001 LAB ([facility] [address] [place] [address] fentaNYL+Norfentanyl Screen Ql (U) Negative Normal Presumptive Negative [facility] Comment on above: Order Comment: Venip uncture immediately after or during the administration of Metamizole may lead to falsely low results. Testing should be performed immediately prior to Metamizole dosing. Result Comment: CUTO FF LEVEL: 5 NG/ML Performed By: #### 3 040-3 #### [facility] (39686) [facility] LAB ([facility]) [address] [place] [address] Methadone Screen Ql (U) Negative Normal Presumptive Negative [facility] Comment on above: Order Comment: Venip uncture immediately after or during the administration of Metamizole may lead to falsely low results. Testing should be performed immediately prior to Metamizole dosing. Result Comment: CUTO FF LEVEL: 150 NG/ML The metabolite T-vowqm-stqmvmwznixlvi (LAAM) is not detected by this method in concentrations that would be found in the urine of patients on LAAM therapy. Performed By: #### 3 040-3 #### [facility] (86141) [facility] LAB ([facility]) [address] [place] [address] Opiates Screen Ql (U) Negative Normal Presum ptive Negative [facility] Comment on above: Order Comment: Venip [...] By: #### 3 040-3 #### [facility] (39219) [facility] 2001 LAB ([facility] [address] [place] [address] oxyCODONE+oxyMORphone Screen Ql (U) Negative Normal Presumptive Negative [facility] Comment on above: Order Comment: Venip uncture immediately after or during the administration of Metamizole may lead to falsely low results. Testing should be performed immediately prior to Metamizole dosing. Result Comment: CUTO FF LEVEL: 100 NG/ML This test will accurately detect both oxycodone and oxymorphone. Performed By: #### 3 040-3 #### [facility] (07078) [facility] LAB ([facility] [address] [place] [address] Phencyclidine Ql (U) Negative Normal Presump tive Negative [facility] Comment on above: Order Comment: Venip uncture immediately after or during the administration of Metamizole may lead to falsely low results. Testing should be performed immediately prior to Metamizole dosing. Result Comment: CUTO FF LEVEL: 25 NG/ML Cross-reactivity has been reported with dextromethorphan. Performed By: #### 3 040-3 #### [facility] (31416) [facility] LAB ([facility] [address] [place] [address] ECG 12-LEADon 06-29-2024 ECG 12-LEAD Ventricular Rate 138 Atrial Rate 138 P-R Interval 146 QRS Duration 72 Q-T Interval 280 QTC Calculation(Bazett) 424 P Fisher 47 R Fisher 54 T Fisher 93 QRS Count 23 Q Onset 224 P Onset 151 P Offset 200 T Offset 364 QTC Fredericia 369 Diagnosis Sinus tachycardia Septal infarct (cited on or before 29-JUN-2024) Abnormal ECG Confirmed by Сергей Bustillos ([id number]) on 08/17/2024 4:33:[address] [facility] ECG 12-LEAD Ventricular Rate 141 Atrial Rate 141 P-R Interval 130 QRS Duration 72 Q-T Interval 274 QTC Calculation(Bazett) 419 P Fisher 33 R Fisher -18 T Fisher 21 QRS Count 23 Q Onset 218 P Onset 153 P Offset 210 T Offset 355 QTC Fredericia 364 Diagnosis Sinus tachycardia Inferior infarct , age undetermined Anterolateral infarct , age undetermined Abnormal ECG No previous ECGs available See ED provider note for full interpretation and clinical correlation Confirmed by Chelsie Franco ([id number]) on 07/08/2024 1:12:[address] [facility] Gas and Carbon monoxide and Electrolytes panel (BldA)on 06-29-2024 Anion gap 4 (BldA) [Moles/Vol] 13 mmo/L Normal 10-25 [facility] Comment on above: Performed By: #### 3 040-3 #### [facility] (97155) [facility] LAB ([facility] [address] [place] [address] Base excess Calc (Bld) [Moles/Vol] -2.4000 mmol/L Low -2.0-3.0 [facility] Comment on above: Performed By: #### 3 040-3 #### [facility] (73735) [facility] LAB ([facility] [address] [place] [address] Calcium.ionized (BldA) [Moles/Vol] 1.17 mmol/L Normal 1.10-1.33 [facility] Comment on above: Performed By: #### 3 040-3 #### [facility] (49535) [facility] LAB ([facility] [address] [place] [address] Chloride (BldA) [Moles/Vol] 99 mmol/L Normal 98-107 [facility] Comment on above: Performed By: #### 3 040-3 #### [facility] (08790) [facility] LAB ([facility]) [address] [place] [address] CO2 (Bld) [Partial pressure] 33 mm Hg Low 38-42 [facility] Comment on above: Performed By: #### 3 040-3 #### [facility] (03635) [facility] LAB ([facility] [address] [place] [id number] Glucose [Mass/Vol] 224 mg/dL High 74-99 [facility] Comment on above: Performed By: #### 3 040-3 #### [facility] (56845) [facility] 2001 LAB ([facility] [address] [place] [id number] HCO3 (Bld) [Moles/Vol] 21.4 mmol/L Low 22.0-26.0 [facility] Comment on above: Performed By: #### 3 040-3 #### [facility] (76601) [facility] LAB ([facility]) [address] [place] [id number] Hematocrit Est (Bld) [Volume fraction] 38.0 % Normal 36.0-46.0 [facility] Comment on above: Performed By: #### 3 040-3 #### [facility] (12584) [facility] LAB ([facility]) [address] [place] [id number] Hemoglobin (Bld) [Mass/Vol] 12.7 g/dL Normal 12.0-16.0 [facility] Comment on above: Performed By: #### 3 040-3 #### [facility] (57271) [facility] LAB ([facility] [address] [place] [id number] Inhaled oxygen concentration 24 % Normal [facility] Comment on above: Performed By: #### 3 040-3 #### [facility] (26581) [facility] LAB ([facility] [address] [place] [address] Lactate (BldA) [Moles/Vol] 5.3 mmol/L Critically high 0.4-2.0 [facility] Comment on above: Performed By: #### 3 040-3 #### [facility] (99992) [facility] LAB ([facility] [address] [place] [address] Oxygen (Bld) [Partial pressure] 68 mm Hg Low 85-95 [facility] Comment on above: Performed By: #### 3 040-3 #### [facility] (53277) [facility] LAB ([facility] [address] [place] [id number] Oxyhemoglobin (BldA) [Mass fraction] 93.2 % Low 94.0-98.0 [facility] Comment on above: Performed By: #### 3 040-3 #### [facility] (16887) [facility] LAB ([facility] [address] [place] [id number] pH (Bld) 7.42 [pH] Normal 7.38-7.42 [facility] Comment on above: Performed By: #### 3 040-3 #### [facility] (04106) [facility] LAB ([facility] [address] [place] [address] Potassium (BldA) [Moles/Vol] 3.6 mmol/L Normal 3.5-5.3 [facility] Comment on above: Performed By: #### 3 040-3 #### [facility] (47650) [facility] LAB ([facility] [address] [place] [address] Sodium (BldA) [Moles/Vol] 130 mmol/L Low 136-145 [facility] Comment on above: Performed By: #### 3 040-3 #### [facility] (97208) [facility] LAB ([facility] [address] [place] [id number] Glucose Test strip manual (B ld) [Mass/Vol]on 06-29-2024 Glucose [Mass/Vol] 167 mg/dL High 74-99 [facility] Comment on above: Performed By: #### 9 5423-0 #### [facility] (56175) [facility] LAB ([facility] [address] [place] [address] Glucose [Mass/Vol] 230 mg/dL High [address] [place] [address] Comment on above: Performed By: #### 3 040-3 #### [facility] (35392) [facility] LAB ([facility] [address] [place] [address] Glucose [Mass/Vol] 224 mg/dL High -99 [facility] Comment on above: Performed By: #### 3 040-3 #### [facility] (55344) [facility] LAB ([facility]) [address] [place], [place] [id number] Glucose [Mass/Vol] 267 mg/dL High [address] [place] [address] Comment on above: Performed By: #### 3 040-3 #### [facility] (93939) [facility] ([facility]) [address] [place] [address] HbA1c (Bld) [Mass fraction]o n 06-29-2024 Average glucose Estimated from glycated hemoglobin (Bld) [Mass/Vol] 240 mg/dL Normal Not Established [facility] Comment on above: Order Comment: This assay is an FDA-cleared, in vitro diagnostic nucleic acid amplification test for the qualitative detection and differentiation of SARS CoV-2/ Influenza A/B from nasopharyngeal specimens collected from individuals with signs and symptoms of respiratory tract infections, and has been validated for use at [facility]. Negative results do not preclude COVID-19/ Influenza A/B infections and should not be used as the sole basis for diagnosis, treatment, or other management decisions. Testing for SARS CoV-2 is recommended only for patients who meet current clinical and/or epidemiological criteria defined by federal, state, or local public health directives. Performed By: #### 9 5423-0 #### [facility] (93733) [facility] ([facility] [address] [place] [address] Hemoglobin A1c/Hemoglobin.to stacy 06-29-2024 HbA1c (Bld) [Mass fraction] 10.0 % High See comment [facility] Comment on above: Order Comment: This assay is an FDA-cleared, in vitro diagnostic nucleic acid amplification test for the qualitative detection and differentiation of SARS CoV-2/ Influenza A/B from nasopharyngeal specimens collected from individuals with signs and symptoms of respiratory tract infections, and has been validated for use at [facility]. Negative results do not preclude COVID-19/ Influenza A/B infections and should not be used as the sole basis for diagnosis, treatment, or other management decisions. Testing for SARS CoV-2 is recommended only for patients who meet current clinical and/or epidemiological criteria defined by federal, state, or local public health directives. Performed By: #### 9 5423-0 #### [facility] (35476) [facility] ([facility] [address] [place] [address] Influenza virus A and B and SARS-CoV-2 (COVID-19) identified SIRENA+probe Nom (Resp)on 06-29-2024 FLUAV RNA SIRENA+probe Ql (Resp) Not detected Normal Not Detected [facility] Comment on above: Order Comment: This assay is an FDA-cleared, in vitro diagnostic nucleic acid amplification test for the qualitative detection and differentiation of SARS CoV-2/ Influenza A/B from nasopharyngeal specimens collected from individuals with signs and symptoms of respiratory tract infections, and has been validated for use at [facility]. Negative results do not preclude COVID-19/ Influenza A/B infections and should not be used as the sole basis for diagnosis, treatment, or other management decisions. Testing for SARS CoV-2 is recommended only for patients who meet current clinical and/or epidemiological criteria defined by federal, state, or local public health directives. Performed By: #### 9 5423-0 #### [facility] (59195) [facility] ([facility] [address] [place] [address] FLUBV RNA SIRENA+probe Ql (Resp) Not detected Normal Not Detected [facility] Comment on above: Order Comment: This assay is an FDA-cleared, in vitro diagnostic nucleic acid amplification test for the qualitative detection and differentiation of SARS CoV-2/ Influenza A/B from nasopharyngeal specimens collected from individuals with signs and symptoms of respiratory tract infections, and has been validated for use at [facility]. Negative results do not preclude COVID-19/ Influenza A/B infections and should not be used as the sole basis for diagnosis, treatment, or other management decisions. Testing for SARS CoV-2 is recommended only for patients who meet current clinical and/or epidemiological criteria defined by federal, state, or local public health directives. Performed By: #### 9 5423-0 #### [facility] (16841) [facility] ([facility] [address] [place] [address] SARS-CoV-2 (COVID-19) RNA SIRENA+probe Ql (Resp) Not detected Normal Not Detected [facility] Comment on above: Order Comment: This assay is an FDA-cleared, in vitro diagnostic nucleic acid amplification test for the qualitative detection and differentiation of SARS CoV-2/ Influenza A/B from nasopharyngeal specimens collected from individuals with signs and symptoms of respiratory tract infections, and has been validated for use at [facility]. Negative results do not preclude COVID-19/ Influenza A/B infections and should not be used as the sole basis for diagnosis, treatment, or other management decisions. Testing for SARS CoV-2 is recommended only for patients who meet current clinical and/or epidemiological criteria defined by [facility], state, or [facility] public health directives. Performed By: #### 9 5423-0 #### [facility] (13863) [facility] ([facility]) [address] [id number] Lactateon 06-29-2024 Lactate [Moles/Vol] 3.2 mmol/L High 0.4-2.0 [facility] Comment on above: Order Comment: This assay is an FDA-cleared, in vitro diagnostic nucleic acid amplification test for the qualitative detection and differentiation of SARS CoV-2/ Influenza A/B from nasopharyngeal specimens collected from individuals with signs and symptoms of respiratory tract infections, and has been validated for use at [facility]. Negative results do not preclude COVID-19/ Influenza A/B infections and should not be used as the sole basis for diagnosis, treatment, or other management decisions. Testing for SARS CoV-2 is recommended only for patients who meet current clinical and/or epidemiological criteria defined by federal, state, or local public health directives. Performed By: #### 9 5423-0 #### [facility] (76958) [facility] ([facility]) [address] [place] [address] Lactate (BldV) [Moles/Vol] 4.2 mmol/L Critically high 0.4-2.0 [facility] Comment on above: Performed By: #### 3 040-3 #### [facility] (94526) [facility] ([facility]) [address] [place] [address] Lactate [Moles/Vol] 5.4 mmol/L Critically high 0.4-2.0 [facility] Comment on above: Order Comment: Venip uncture immediately after or during the administration of Metamizole may lead to falsely low results. Testing should be performed immediately prior to Metamizole dosing. Result Comment: Prev ious result verified on 06/29/2024699 on specimen/case [id number] called with component LACT for procedure Lactate with value 4.3 mmol/L. Performed By: #### 2 4323-8 #### [facility] (36056) [facility] ([facility]) [address] [place] [address] Lactate [Moles/Vol] 4.9 mmol/L Critically high 0.4-2.0 [facility] Comment on above: Order Comment: Venip uncture immediately after or during the administration of Metamizole may lead to falsely low results. Testing should be performed immediately prior to Metamizole dosing. Result Comment: Prev ious result verified on 06/29/2024699 on specimen/case [id number] called with component LACT for procedure Lactate with value 4.3 mmol/L. Performed By: #### 2 4323-8 #### [facility] (71753) [facility] ([facility]) [address] [place] [address] Lactate [Moles/Vol] 5.5 mmol/L Critically high 0.4-2.0 [facility] Comment on above: Order Comment: Venip uncture immediately after or during the administration of Metamizole may lead to falsely low results. Testing should be performed immediately prior to Metamizole dosing. Result Comment: Prev ious result verified on 06/29/2024 0700 on specimen/case [id number] called with component LACT for procedure Lactate with value 4.3 mmol/L. Performed By: #### 2 4323-8 #### [facility] (05196) [facility] ([facility]) [address] [place] [address] Lactate [Moles/Vol] 4.3 mmol/L Critically high 0.4-2.0 [facility] Comment on above: Order Comment: Venip uncture immediately after or during the administration of Metamizole may lead to falsely low results. Testing should be performed immediately prior to Metamizole dosing. Performed By: #### 2 524-7 #### [facility] (95391) [facility] ([facility]) [address] [place] [address] Magnesiumon 06-29-2024 Magnesium [Mass/Vol] 1.36 mg/dL Low 1.60-2.40 [facility] Comment on above: Performed By: #### 3 040-3 #### [facility] (84794) [facility] ([facility]) [address] [place] [address] Magnesium [Mass/Vol] 1.73 mg/dL Normal 1.60-2.40 [facility] Comment on above: Performed By: #### 1 9123-9 #### [facility] (54578) [facility] ([facility]) [address] [place], [place] [id number] Manual differential performe d Ql (Bld)on 06-29-2024 Band form neutrophils (Bld) [#/Vol] 3.43 x10*3/uL High 0.00-0.70 [facility] Comment on above: Performed By: #### 5 0957-0 #### [facility] (59317) [facility] ([facility]) [address] [id number] Band form neutrophils/100 WBC (Bld) 34.0 % Normal 0.0-5.0 [facility] Comment on above: Performed By: #### 5 0957-0 #### [facility] (91735) [facility] ([facility]) [address] [place] [address] Basophils (Bld) [#/Vol] 0.00 x10*3/uL Normal 0.00-0.10 [facility] Comment on above: Performed By: #### 5 0957-0 #### [facility] (07805) [facility] ([facility]) [address] [place] [address] Basophils/100 WBC (Bld) 0.0 % Normal 0.0-2.0 [facility] Comment on above: Performed By: #### 5 57-0 #### [facility] (95196) [facility] ([facility]) [address] [place] [address] Cells Counted Total (Bld) [#] 100 Normal [facility] Comment on above: Performed By: #### 5 57-0 #### [facility] (84580) [facility] ([facility]) [address] [place] [address] Eosinophils (Bld) [#/Vol] 0.00 x10*3/uL Normal 0.00-0.70 [facility] Comment on above: Performed By: #### 5 57-0 #### [facility] (11625) [facility] ([facility]) [address] [place] [address] Eosinophils/100 WBC (Bld) 0.0 % Normal 0.0-6.0 [facility] Comment on above: Performed By: #### 5 57-0 #### [facility] (58511) [facility] ([facility]) [address] [place] [address] Lymphocytes (Bld) [#/Vol] 0.10 x10*3/uL Low 1.20-4.80 [facility] Comment on above: Performed By: #### 5 57-0 #### [facility] (28744) [facility] ([facility]) [address] [place] [address] Lymphocytes/100 WBC (Bld) 1.0 % Normal 13.0-44.0 [facility] Comment on above: Performed By: #### 5 0957-0 #### [facility] (20152) [facility] ([facility]) [address] [place] [address] Monocytes (Bld) [#/Vol] 0.00 x10*3/uL Low 0.10-1.00 [facility] Comment on above: Performed By: #### 5 0957-0 #### [facility] (36117) [facility] ([facility]) [address] [place] [address] Monocytes/100 WBC (Bld) 0.0 % Normal 2.0-10.0 [facility] Comment on above: Performed By: #### 5 57-0 #### [facility] (89634) [facility] ([facility]) [address] [place] [address] Neutrophils (Bld) [#/Vol] 9.89 x10*3/uL High 1.20-7.70 [facility] Comment on above: Performed By: #### 5 57-0 #### [facility] (59145) [facility] ([facility]) [address] [place] [address] RBC morphology finding Nom (Bld) No significant RBC morphology present Normal [facility] Comment on above: Performed By: #### 5 57-0 #### [facility] (71469) [facility] ([facility]) [address] [place] [id number] Segmented neutrophils (Bld) [#/Vol] 6.46 x10*3/uL Normal 1.20-7.00 [facility] Comment on above: Performed By: #### 5 0957-0 #### [facility] (65770) [facility] ([facility]) [address] [id number] Segmented neutrophils/100 WBC (Bld) 64.0 % Normal 40.0-80.0 [facility] Comment on above: Result Comment: Perc ent differential counts (%) should be interpreted in the context of the absolute cell counts (cells/uL). Performed By: #### 5 0957-0 #### [facility] (17066) [facility] ([facility]) [address] [place] [address] Variant lymphocytes (Bld) [#/Vol] 0.10 x10*3/uL Normal 0.00-0.50 [facility] Comment on above: Performed By: #### 5 0957-0 #### [facility] (06534) [facility] ([facility]) [address] [place] [address] Variant lymphocytes/100 WBC (Bld) 1.0 % Normal 0.0-2.0 [facility] Comment on above: Performed By: #### 5 0957-0 #### [facility] (96028) [facility] ([facility]) [address] [place] [address] PT and aPTT panel Coag (PPP) on 06-29-2024 aPTT Coag (PPP) [Time] 31 s Normal 26-36 [facility] Comment on above: Order Comment: The A PTT is no longer used for monitoring Unfractionated Heparin Therapy. For monitoring Heparin Therapy, use the Heparin Assay. Performed By: #### 2 4323-8 #### [facility] (75405) [facility] ([facility]) [address] [place], [place] [phone] INR Coag (PPP) [Relative time] 1.1 Normal 0.9-1.1 [facility] Comment on above: Order Comment: The A PTT is no longer used for monitoring Unfractionated Heparin Therapy. For monitoring Heparin Therapy, use the Heparin Assay. Performed By: #### 2 4323-8 #### [facility] (99825) [facility] ([facility]) [address] [id number] PT Coag (PPP) [Time] 12.4 s Normal 9.8-12.4 [facility] Comment on above: Order Comment: The A PTT is no longer used for monitoring Unfractionated Heparin Therapy. For monitoring Heparin Therapy, use the Heparin Assay. Performed By: #### 2 4323-8 #### [facility] (96788) [facility] ([facility]) [address] [place] [address] Phosphateon 06-29-2024 Phosphate [Mass/Vol] 1.9 mg/dL Low 2.5-4.9 [facility] Comment on above: Result Comment: The performance characteristics of phosphorus testing in heparinized plasma have been validated by the individual laboratory site where testing is performed. Testing on heparinized plasma is not approved by the FDA; however, such approval is not necessary. Performed By: #### 9 5423-0 #### [facility] (99408) [facility] ([facility]) [address] [place] [address] TSH WITH REFLEX TO FREE T4 I F ABNORMALon 06-29-2024 TSH Qn 1.41 m[IU]/L Normal 0.44-3.98 [facility] Comment on above: Order Comment: TSH t esting is performed using different testing methodology at [facility] than at other [facility]. Direct result comparisons should only be made within the same method. Performed By: #### T HYDS #### [facility] (10527) [facility] ([facility]) [address] [place] [address] Triacylglycerol lipaseon Lipase [Catalytic activity/Vol] 41 U/L Normal 9-82 [facility] Comment on above: Order Comment: Venip uncture immediately after or during the administration of Metamizole may lead to falsely low results. Testing should be performed immediately prior to Metamizole dosing. Performed By: #### 3 040-3 #### [facility] (51385) [facility] ([facility]) [address] [place] [address] Urinalysis complete W Reflex Culture panel (U)on 06-29-2024 Appearance (U) Clear Normal Clear [facility] Comment on above: Performed By: #### 3 040-3 #### [facility] (05058) [facility] ([facility]) [address] [place] [address] Bilirubin (U) [Mass/Vol] Negative Normal NEGATIVE [facility] Comment on above: Performed By: #### 3 040-3 #### [facility] (46041) [facility] ([facility]) [address] [place] [address] Color (U) Yellow Normal Light-Yellow, Yellow, Dark-Yellow [facility] Comment on above: Performed By: #### 3 040-3 #### [facility] (15851) [facility] ([facility]) [address] [place] [address] Glucose Auto test strip (U) [Mass/Vol] 500 (3+) Abnormal Normal [facility] Comment on above: Performed By: #### 3 040-3 #### [facility] (62179) [facility] ([facility]) [address] [place] [address] Ketones (U) [Mass/Vol] Negative Normal NEGATIVE [facility] Comment on above: Performed By: #### 3 040-3 #### [facility] (39023) [facility] ([facility]) [address] [place] [address] Leukocyte esterase Auto test strip Ql (U) 500 Alexander/uL Abnormal NEGATIVE [facility] Comment on above: Performed By: #### 3 040-3 #### [facility] (59168) [facility] ([facility]) [address] [place] [address] Nitrite Auto test strip Ql (U) Negative Normal NEGATIVE [facility] Comment on above: Performed By: #### 3 040-3 #### [facility] (57912) [facility] ([facility]) [address] [place], [place] [id number] pH (U) 6.0 [pH] Normal 5.0, 5.5, 6.0, 6.5, 7.0, 7.5, 8.0 [facility] Comment on above: Performed By: #### 3 040-3 #### [facility] (40042) [facility] ([facility]) [address] [place] [address] Protein (U) [Mass/Vol] 30 (1+) Abnormal NEGATIVE, 10 (TRACE), 20 (TRACE) [facility] Comment on above: Performed By: #### 3 040-3 #### [facility] (34466) [facility] ([facility]) [address] [place] [address] RBC (U) [#/Vol] Negative Normal NEGATIVE [facility] Comment on above: Performed By: #### 3 040-3 #### [facility] (50478) [facility] ([facility]) [address] [place] [address] Specific gravity (U) [Rel density] >1.050 Normal 1.005-1.035 [facility] Comment on above: Result Comment: Spec [facility] gravity of >1.050 may be falsely elevated due to interfering substances (e.g. radiopaque contrast dye, mannitol). If clinically necessary, an alternate test method is available by calling the laboratory within 24 hours of specimen collection. Performed By: #### 3 040-3 #### [facility] (11142) [facility] ([facility]) [address] [place] [address] Urobilinogen (U) [Mass/Vol] Normal Normal Normal [facility] Comment on above: Performed By: #### 3 040-3 #### [facility] (56875) [facility] ([facility]) [address] [place] [address] Urinalysis microscopic panel Auto Ql (U)on 06-29-2024 Bacteria Auto (Urine sed) [#/Area] 1+ /HPF Abnormal NONE SEEN [facility] Comment on above: Performed By: #### 3 040-3 #### [facility] (54473) [facility] ([facility]) [address] [place] [address] Epithelial cells.squamous Auto (Urine sed) [#/Area] 1-9 (SPARSE) Normal Reference range not established. [facility] Comment on above: Performed By: #### 3 040-3 #### [facility] (84351) [facility] ([facility]) [address] [place] [address] Mucus Auto (Urine sed) [#/Area] FEW Normal Reference range not established. [facility] Comment on above: Performed By: #### 3 040-3 #### [facility] (27256) [facility] ([facility]) [address] [place] [address] RBC Auto (Urine sed) [#/Area] 3-5 Normal NONE, 1-2, 3-5 [facility] Comment on above: Performed By: #### 3 040-3 #### [facility] (88628) [facility] ([facility]) [address] [place] [address] WBC Auto (Urine sed) [#/Area] >50 Abnormal 1-5, NONE [facility] Comment on above: Performed By: #### 3 040-3 #### [facility] (01841) [facility] ([facility]) [address] [place] [address] XR CHEST 1 VIEWon 06-29-2024 XR CHEST 1 VIEW STUDY: Chest Radiograph; 06/29/2024 10:59AM INDICATION: Post central line placement. COMPARISON: 06/29/2024 CT CTA Chest. ACCESSION NUMBER(S): [id number] ORDERING CLINICIAN: FINN ESTRELLA TECHNIQUE: Frontal chest was obtained at 10:59 [...] lung zones. Signed by Jay Perdomo MD Normal [facility] Absolute lymphocyte countOrd ered By: Albert Mccoy on 06-18-2024 Lymphocytes Auto (Unsp spec) [#/Vol] 1.22 10*3/uL 0.83-4.51 [facility] Absolute neutrophil countOrd ered By: Albert Mccoy on 06-18-2024 Neutrophils (Bld) [#/Vol] 3.2 10*3/uL 2.0-7.7 [facility] Alcohol, Blood (Medical)-Ser umon 06-18-2024 SERUM ETOH < 10.1 Normal <=10.0 [facility] Comment on above: Result Comment: This test is for medical purposes only. The legaldefinition of intoxication varies according to local law. Performed By: #### L 501.6901, L100.0100, L505.5000, L501.9100, L500.4050 ####[facility] [address] [facility] [address] Amphetamine detection with 1 000 ng/mL as cutoffOrdered By: Albert Mccyo on 06-18-2024 Amphetamines Screen method >1000 ng/mL Ql (U) Negative < 200 ng/mL [facility] Anion gap in Serum or Plasma Ordered By: Albert Mccoy on 06-18-2024 Anion gap [Moles/Vol] 11 mmol/L 5-15 [facility] Automated lymphocyte count a s percentage of total leukocytesOrdered By: Albert Mccoy on 06-18-2024 Lymphocytes/100 WBC Auto (Unsp spec) 24.5 % 19-41 [facility] BUN/creatinine ratioOrdered By: Albert Mccoy on 06-18-2024 Urea nitrogen/Creatinine [Mass ratio] 23.5 mg/mg High 10-20 [facility] Basophil percentageOrdered B y: Albert Mccoy on 06-18-2024 Basophils/100 WBC (Bld) 0.6 % 0-1 [facility] Bedside Glucoseon 06-18-2024 FINGERSTICK GLU 414 mg/dL High 74-106 [facility] Comment on above: Result Comment: DELLA GEMENT OF PATIENT CARE PER NURSING PROTOCOL Performed By: #### L 501.080 ####[facility] [address] [facility] [address] FINGERSTICK GLU 409 mg/dL High 74-106 [facility] Comment on above: Result Comment: DELLA GEMENT OF PATIENT CARE PER NURSING PROTOCOL Performed By: #### L 501.080 ####[facility] [address] [place], [address] Bilirubin, totalOrdered By: Albert Mccoy on 06-18-2024 Bilirubin [Mass/Vol] 0.34 mg/dL 0.00-1.30 [facility] CBC W/Diff, Automatedon Absolute Lymph 1.22 X10 3/uL Normal 0.83-4.51 [facility] Comment on above: Performed By: #### L 501.6901, L100.0100, L505.5000, L501.9100, L500.4050 ####[facility] [address] [place], [address] Absolute Neut 3.2 X10 3/uL Normal 2.0-7.7 [facility] Comment on above: Performed By: #### L 501.6901, L100.0100, L505.5000, L501.9100, L500.4050 ####[facility] [address] [place], [address] Basophils/100 WBC (Bld) 0.6 % Normal 0-1 [facility] Comment on above: Performed By: #### L 501.6901, L100.0100, L505.5000, L501.9100, L500.4050 ####[facility] [address] [place], [address] Eosinophils/100 WBC (Bld) 3.0 % Normal 0-5 [facility] Comment on above: Performed By: #### L 501.6901, L100.0100, L505.5000, L501.9100, L500.4050 ####[facility] [address] [place], [address] Erythrocyte distribution width (RBC) [Ratio] 13.7 % Normal 11.6-14.6 [facility] Comment on above: Performed By: #### L 501.6901, L100.0100, L505.5000, L501.9100, L500.4050 ####[facility] [address] [place], [address] Hematocrit (Bld) [Volume fraction] 43.7 % Normal 37-47 [facility] Comment on above: Performed By: #### L 501.6901, L100.0100, L505.5000, L501.9100, L500.4050 ####[facility] [address] [place], [address] Hemoglobin (Bld) [Mass/Vol] 14.7 g/dL Normal 12.0-15.0 [facility] Comment on above: Performed By: #### L 501.6901, L100.0100, L505.5000, L501.9100, L500.4050 ####[facility] [address] [place], [address] IG% 0.600 Normal 0.0-0.9 [facility] Comment on above: Result Comment: IG% - Immature Granulocytes (promyelocytes, myelocytes andmetamyelocytes) > 1% indicates that a LEFT SHIFT is Present. Performed By: #### L 501.6901, L100.0100, L505.5000, L501.9100, L500.4050 ####[facility] [address] [place], [address] Lymphocytes/100 WBC (Bld) 24.5 % Normal 19-41 [facility] Comment on above: Performed By: #### L 501.6901, L100.0100, L505.5000, L501.9100, L500.4050 ####[facility] [address] [place], [address] MCH (RBC) [Entitic mass] 28.7 pg Normal 27.0-32.0 [facility] Comment on above: Performed By: #### L 501.6901, L100.0100, L505.5000, L501.9100, L500.4050 ####[facility] [address] [place], [address] MCHC (RBC) [Mass/Vol] 33.6 g/dL Normal 32-36 [facility] Comment on above: Performed By: #### L 501.6901, L100.0100, L505.5000, L501.9100, L500.4050 ####[facility] [address] [place], [address] MCV (RBC) [Entitic vol] 85.2 fL Normal 81-99 [facility] Comment on above: Performed By: #### L 501.6901, L100.0100, L505.5000, L501.9100, L500.4050 ####[facility] [address] [place], [address] Monocytes/100 WBC (Bld) 7.8 % Normal 0-10 [facility] Comment on above: Performed By: #### L 501.6901, L100.0100, L505.5000, L501.9100, L500.4050 ####[facility] [address] [place], [address] Neutrophils/100 WBC (Bld) 63.5 % Normal 47-70 [facility] Comment on above: Performed By: #### L 501.6901, L100.0100, L505.5000, L501.9100, L500.4050 ####[facility] [address] [place], [address] Nucleated RBC (Bld) [#/Vol] 0 10*3/uL Normal 0-5 [facility] Comment on above: Performed By: #### L 501.6901, L100.0100, L505.5000, L501.9100, L500.4050 ####[facility] [address] [place], [address] Platelet mean volume (Bld) [Entitic vol] 10.3 fL Normal 6.2-12.0 [facility] Comment on above: Performed By: #### L 501.6901, L100.0100, L505.5000, L501.9100, L500.4050 ####[facility] [address] [place], [address] Platelets (Bld) [#/Vol] 182 10*3/uL Normal 150-450 [facility] Comment on above: Performed By: #### L 501.6901, L100.0100, L505.5000, L501.9100, L500.4050 ####[facility] [address] [place], [address] RBC (Bld) [#/Vol] 5.13 10*6/uL Normal 4.2-5.4 [facility] Comment on above: Performed By: #### L 501.6901, L100.0100, L505.5000, L501.9100, L500.4050 ####[facility] [address] [place], [address] RDW SD 43.1 fl Normal 35.1-43.9 [facility] Comment on above: Performed By: #### L 501.6901, L100.0100, L505.5000, L501.9100, L500.4050 ####[facility] [address] [place], [address] WBC (Bld) [#/Vol] 5.0 10*3/uL Normal 4.4-11.0 [facility] Comment on above: Performed By: #### L 501.6901, L100.0100, L505.5000, L501.9100, L500.4050 ####[facility] [address] [place], [address] Carbon dioxide, total [Moles /volume] in Central venous bloodOrdered By: Albert Mccoy on 06-18-2024 CO2 [Moles/Vol] 23.4 mmol/L 21.0-32.0 [facility] Chloride assayOrdered By: Davey Mccoy on 06-18-2024 Chloride [Moles/Vol] 101 mmol/L 98-108 [facility] Comprehensive Metabolic Prof ilon 06-18-2024 Albumin [Mass/Vol] 3.6 g/dL Normal 3.5-5.0 [facility] Comment on above: Performed By: #### L 501.6901, L100.0100, L505.5000, L501.9100, L500.4050 ####[facility] [address] [place], [address] Albumin/Globulin [Mass ratio] 1.3 {ratio} Normal 0.9-2.4 [facility] Comment on above: Performed By: #### L 501.6901, L100.0100, L505.5000, L501.9100, L500.4050 ####[facility] [address] [place], [address] ALK PHOS 91 U/L Normal 35-104 [facility] Comment on above: Performed By: #### L 501.6901, L100.0100, L505.5000, L501.9100, L500.4050 ####[facility] [address] [place], [address] ALT [Catalytic activity/Vol] 54 U/L High <=34 [facility] Comment on above: Performed By: #### L 501.6901, L100.0100, L505.5000, L501.9100, L500.4050 ####[facility] [address] [place], [address] AST [Catalytic activity/Vol] 52 U/L High <=31 [facility] Comment on above: Performed By: #### L 501.6901, L100.0100, L505.5000, L501.9100, L500.4050 ####[facility] [address] [place], [address] Bilirubin [Mass/Vol] 0.34 mg/dL Normal 0.00-1.30 [facility] Comment on above: Performed By: #### L 501.6901, L100.0100, L505.5000, L501.9100, L500.4050 ####[facility] [address] [place], [address] BUN/CRE 23.5 RATIO High 10-20 [facility] Comment on above: Performed By: #### L 501.6901, L100.0100, L505.5000, L501.9100, L500.4050 ####[facility] [address] [place], [address] Calcium [Mass/Vol] 8.7 mg/dL Normal 7.6-11.0 [facility] Comment on above: Performed By: #### L 501.6901, L100.0100, L505.5000, L501.9100, L500.4050 ####[facility] [address] [place], [address] Chloride [Moles/Vol] 101 mmol/L Normal 98-108 [facility] Comment on above: Performed By: #### L 501.6901, L100.0100, L505.5000, L501.9100, L500.4050 ####[facility] [address] [place], [address] CO2 [Moles/Vol] 23.4 mmol/L Normal 21.0-32.0 [facility] Comment on above: Performed By: #### L 501.6901, L100.0100, L505.5000, L501.9100, L500.4050 ####[facility] [address] [place], [address] Creatinine [Mass/Vol] 0.53 mg/dL Low 0.70-1.20 [facility] Comment on above: Performed By: #### L 501.6901, L100.0100, L505.5000, L501.9100, L500.4050 ####[facility] [address] [place], [address] ECRCL 110.46 ml/min Normal 50-250 [facility] Comment on above: Performed By: #### L 501.6901, L100.0100, L505.5000, L501.9100, L500.4050 ####[facility] [address] [place], [address] GAP 11 Normal 5-15 [facility] Comment on above: Performed By: #### L 501.6901, L100.0100, L505.5000, L501.9100, L500.4050 ####[facility] [address] [place], [address] GFR/1.73 sq M.predicted among non-blacks MDRD (S/P/Bld) [Vol rate/Area] 110 mL/min/{1.73_m2} Normal >60 [facility] Comment on above: Result Comment: mL/m in/1.73m2 CKD-EPI Creatinine Equation (2020) Performed By: #### L 501.6901, L100.0100, L505.5000, L501.9100, L500.4050 ####[facility] [address] [place], [address] Globulin (S) [Mass/Vol] 2.7 g/dL Normal 2.2-4.2 [facility] Comment on above: Performed By: #### L 501.6901, L100.0100, L505.5000, L501.9100, L500.4050 ####[facility] [address] [place], [address] Glucose [Mass/Vol] 429 mg/dL High 70-99 [facility] Comment on above: Performed By: #### L 501.6901, L100.0100, L505.5000, L501.9100, L500.4050 ####[facility] [address] [place], [address] Potassium [Moles/Vol] 4.3 mmol/L Normal 3.3-5.1 [facility] Comment on above: Performed By: #### L 501.6901, L100.0100, L505.5000, L501.9100, L500.4050 ####[facility] [address] [place], [address] Sodium [Moles/Vol] 135 mmol/L Normal 133-145 [facility] Comment on above: Performed By: #### L 501.6901, L100.0100, L505.5000, L501.9100, L500.4050 ####[facility] [address] [place], [address] T PROT 6.4 g/dL Normal 5.9-8.4 [facility] Comment on above: Performed By: #### L 501.6901, L100.0100, L505.5000, L501.9100, L500.4050 ####[facility] [address] [place], [address] Urea nitrogen [Mass/Vol] 13 mg/dL Normal 4-19 [facility] Comment on above: Performed By: #### L 501.6901, L100.0100, L505.5000, L501.9100, L500.4050 ####[facility] [address] [place], [address] Emergency Department Summary on 06-18-2024 Emergency Department Summary Normal [facility] Eosinophil percentageOrdered By: Albert Mccoy on 06-18-2024 Eosinophils/100 WBC (Bld) 3.0 % 0-5 [facility] Erythrocyte distribution wid th ratioOrdered By: Albert Mccoy on 06-18-2024 Erythrocyte distribution width (RBC) [Ratio] 13.7 % 11.6-14.6 [facility] Erythrocyte distribution wid th standard deviationOrdered By: Albert Mccoy on 06-18-2024 Erythrocyte distribution width (RBC) [Ratio] 43.1 fl 35.1-43.9 [facility] Glomerular filtration rate ( GFR) estimation/1.73 sq m using serum, plasma, or whole bOrdered By: Albert Mccoy on 06-18-2024 GFR/1.73 sq M.predicted among non-blacks MDRD (S/P/Bld) [Vol rate/Area] 110 mL/min/{1.73_m2} >60 [facility] Comment on above: mL/min/1.73m2 CKD-EP I Creatinine Equation (2020) [facility] deOrdered By: Albert Mccoy on 06-18-2024 Glucose [Mass/Vol] 414 mg/dL High 74-106 [facility] Comment on above: MANAGEMENT OF PATIEN T CARE PER NURSING PROTOCOL Hematocrit Auto (Bld) [Volum e fraction]Ordered By: Albert Mccoy on 06-18-2024 Hematocrit (Bld) [Volume fraction] 43.7 % 37-47 [facility] Hemoglobin measurementOrdere d By: Albert Mccoy on 06-18-2024 Hemoglobin (Bld) [Mass/Vol] 14.7 g/dL 12.0-15.0 [facility] Immature granulocytes/100 WB C Auto (Bld)Ordered By: Albert Mccoy on 06-18-2024 Immature granulocytes/100 WBC (Bld) 0.600 % 0.0-0.9 [facility] Comment on above: IG% - Immature Granu locytes (promyelocytes, myelocytes and metamyelocytes) > 1% indicates that a LEFT SHIFT is Present. L501.6901on 06-18-2024 BETA-HYDROXYBUT 0.5 mmol/L Normal 0.0-0.3 [facility] Comment on above: Performed By: #### L 501.6901, L100.0100, L505.5000, L501.9100, L500.4050 ####[facility] [address] [place], [place], [id number] Laboratory - Chemistry and C hemistry - challengeOrdered By: Albert Mccoy on 06-18-2024 AST [Catalytic activity/Vol] 52 U/L High <32 [facility] MCV (mean corpuscular volume ) determinationOrdered By: Albert Mccoy on 06-18-2024 MCV (RBC) [Entitic vol] 85.2 fL 81-99 [facility] Mean corpuscular hemoglobin (MCH) determinationOrdered By: Albert Mccoy on 06-18-2024 MCH (RBC) [Entitic mass] 28.7 pg 27.0-32.0 [facility] Mean corpuscular hemoglobin concentration (MCHC) determinationOrdered By: Albert Mccoy on 06-18-2024 MCHC (RBC) [Mass/Vol] 33.6 g/dL 32-36 [facility] Mean platelet volume determi nationOrdered By: Albert Mccoy on 06-18-2024 Platelet mean volume (Bld) [Entitic vol] 10.3 fL 6.2-12.0 [facility] Monocyte percentageOrdered B y: Albert Mccoy on 06-18-2024 Monocytes/100 WBC (Bld) 7.8 % 0-10 [facility] Neutrophil percentageOrdered By: Albert Mccoy on 06-18-2024 Neutrophils/100 WBC (Bld) 63.5 % 47-70 [facility] No Panel InformationOrdered By: Albert Mccoy on 06-18-2024 Urine Buprenorphine Qualitative Negative < 200 ng/mL [facility] Urine Oxycodone Screen Negative < 100 ng/mL [facility] Beta-Hydroxybutyric Acid mmol/L 0.5 mmol/L 0.0-0.3 [facility] Nucleated red blood cell per centageOrdered By: Albert Mccoy on 06-18-2024 Nucleated RBC/100 WBC (Bld) [Ratio] 0 % 0-5 [facility] Platelet countOrdered By: Davey Mccoy on 06-18-2024 Platelets (Bld) [#/Vol] 182 10*3/uL 150-450 [facility] Potassium measurement (mass/ volume)Ordered By: Albert Mccoy on 06-18-2024 Potassium (Unsp spec) [Mass/Vol] 4.3 mmol/L 3.3-5.1 [facility] Quantitative urine opiates m easurementOrdered By: Albetr Mccoy on 06-18-2024 Opiates Ql (U) Negative < 300 ng/mL [facility] RBC Auto (Bld) [#/Vol]Ordere d By: Albert Mccoy on 06-18-2024 RBC (Bld) [#/Vol] 5.13 10*6/uL 4.2-5.4 [facility] Screening urine fentanyl saeed surementOrdered By: Albert Mccoy on 06-18-2024 fentaNYL Screen Ql (U) Negative [facility] Serum creatinine measurement (mass/volume)Ordered By: Albert Mccoy on 06-18-2024 Creatinine [Mass/Vol] 0.53 mg/dL Low 0.70-1.20 [facility] Serum globulin measurementOr dered By: Albert Mccoy on 06-18-2024 Globulin (S) [Mass/Vol] 2.7 g/dL 2.2-4.2 [facility] Serum glucose measurement (m ass/volume)Ordered By: Albert Mccoy on 06-18-2024 Glucose [Mass/Vol] 429 mg/dL High 70-99 [facility] Serum or plasma alanine ortiz otransferase (ALT) measurementOrdered By: Albert Mccoy on 06-18-2024 ALT [Catalytic activity/Vol] 54 U/L High <35 [facility] Serum or plasma albumin anna urement (mass/volume)Ordered By: Albert Mccoy on 06-18-2024 Albumin [Mass/Vol] 3.6 g/dL 3.5-5.0 [facility] Serum or plasma albumin/glob ulin mass ratioOrdered By: Albert Mccoy on 06-18-2024 Albumin/Globulin [Mass ratio] 1.3 {ratio} 0.9-2.4 [facility] Serum or plasma alkaline zeke sphatase measurementOrdered By: Albert Mccoy on 06-18-2024 ALP [Catalytic activity/Vol] 91 U/L 35-104 [facility] Serum or plasma calcium anna urement (mass/volume)Ordered By: lAbert Mccoy on 06-18-2024 Calcium [Mass/Vol] 8.7 mg/dL [...] 06-18-2024 Urea nitrogen [Mass/Vol] 13 mg/dL 4-19 [facility] Sodium levelOrdered By: Albert Mccoy on 06-18-2024 Sodium [Moles/Vol] 135 mmol/L 133-145 [facility] Total proteinOrdered By: Donna Mccoy on 06-18-2024 Protein [Mass/Vol] 6.4 g/dL 5.9-8.4 [facility] Urine Drug Screen (VISTA)on 06-18-2024 AMPHETAMINES Negative Normal <1000 ng/mL [facility] Comment on above: Performed By: #### L 501.6901, L100.0100, L505.5000, L501.9100, L500.4050 ####[facility] [address] [place], [address] BARBITIURATES Negative Normal < 200 ng/mL [facility] Comment on above: Performed By: #### L 501.6901, L100.0100, L505.5000, L501.9100, L500.4050 ####[facility] [address] [place], [address] BENZODIAZIPINE Negative Normal < 200 ng/mL [facility] Comment on above: Performed By: #### L 501.6901, L100.0100, L505.5000, L501.9100, L500.4050 ####[facility] [address] [place], [address] BUP Ur Drug Scr Negative Normal < 200 ng/mL [facility] Comment on above: Performed By: #### L 501.6901, L100.0100, L505.5000, L501.9100, L500.4050 ####[facility] [address] [place], [address] COCAINE Positive Normal < 300 ng/mL [facility] Comment on above: Result Comment: If c onfirmation testing is needed, a separate order will berequired to send out testing to the reference laboratory. Performed By: #### L 501.6901, L100.0100, L505.5000, L501.9100, L500.4050 ####[facility] [address] [place], [address] Fentanyl Negative Normal [facility] Comment on above: Performed By: #### L 501.6901, L100.0100, L505.5000, L501.9100, L500.4050 ####[facility] [address] [place], [address] METHADONE Negative Normal < 300 ng/mL [facility] Comment on above: Performed By: #### L 501.6901, L100.0100, L505.5000, L501.9100, L500.4050 ####[facility] [address] [place], [address] OPIATES Negative Normal < 300 ng/mL [facility] Comment on above: Performed By: #### L 501.6901, L100.0100, L505.5000, L501.9100, L500.4050 ####[facility] [address] [place], [address] OXYCODONE Negative Normal < 100 ng/mL [facility] Comment on above: Performed By: #### L 501.6901, L100.0100, L505.5000, L501.9100, L500.4050 ####[facility] [address] [place], [address] PCP Negative Normal < 25 ng/mL [facility] Comment on above: Performed By: #### L 501.6901, L100.0100, L505.5000, L501.9100, L500.4050 ####[facility] [address] [place], [address] THC Negative Normal < 50 ng/mL [facility] Comment on above: Performed By: #### L 501.6901, L100.0100, L505.5000, L501.9100, L500.4050 ####[facility] [address] [place], [address] Urine benzodiazepine levelOr dered By: Albert Mccoy on 06-18-2024 Benzodiazepines Ql (U) Negative < 200 ng/mL [facility] Urine cocaine levelOrdered B y: Albert Mccoy on 06-18-2024 Cocaine Ql (U) Positive < 300 ng/mL [facility] Comment on above: If confirmation test ing is needed, a separate order will be required to send out testing to the reference laboratory. Urine ffabw-1-fxtktmklwldhoo abinol (THC) measurementOrdered By: Albert Mccoy on 06-18-2024 Cannabinoids Screen Ql (U) Negative < 50 ng/mL [facility] Urine phencyclidine (PCP) de tectionOrdered By: Albert Mccoy on 06-18-2024 Phencyclidine Ql (U) Negative < 25 ng/mL [facility] White blood cell (WBC) count Ordered By: Albert Mccoy on 06-18-2024 WBC (Bld) [#/Vol] 5.0 10*3/uL 4.4-11.0 [facility] Absolute lymphocyte countOrd ered By: Teri Franklin on 05-11-2024 Lymphocytes Auto (Unsp spec) [#/Vol] 1.28 10*3/uL 0.83-4.51 [facility] Absolute neutrophil countOrd ered By: Teri Franklin on 05-11-2024 Neutrophils (Bld) [#/Vol] 3.3 10*3/uL 2.0-7.7 [facility] Automated lymphocyte count a s percentage of total leukocytesOrdered By: Teri Franklin on 05-11-2024 Lymphocytes/100 WBC Auto (Unsp spec) 23.6 % 19-41 [facility] Basic Metabolic Profile (BMP )on 05-11-2024 BUN/CRE 33.9 RATIO High 10-20 [facility] Comment on above: Order Comment: 515-1 Performed By: #### L 501.5200, L501.6710, L100.0100, L500.2500 ####[facility] [address] [place], [address] CA,Total 9.0 mg/dL Normal 8.5-10.1 [facility] Comment on above: Order Comment: 515-1 Performed By: #### L 501.5200, L501.6710, L100.0100, L500.2500 ####[facility] [address] [place], [address] Chloride [Moles/Vol] 104 mmol/L Normal 98-107 [facility] Comment on above: Order Comment: 515-1 Performed By: #### L 501.5200, L501.6710, L100.0100, L500.2500 ####[facility] [address] [place], [address] CO2 [Moles/Vol] 26.0 mmol/L Normal 21.0-32.0 [facility] Comment on above: Order Comment: 515-1 Performed By: #### L 501.5200, L501.6710, L100.0100, L500.2500 ####[facility] [address] [place], [address] Creatinine [Mass/Vol] 0.62 mg/dL Normal 0.55-1.02 [facility] Comment on above: Order Comment: 515-1 Result Comment: The validity of the calculated GFR GFRAA in patients over70 years has not been determined. Clinical correlation isessential. Performed By: #### L 501.5200, L501.6710, L100.0100, L500.2500 ####[facility] [address] [place], [address] EST GFR - AA 129 mL/min Normal >60 [facility] Comment on above: Order Comment: 515-1 Result Comment: Afri can [place] GFR Calc Performed By: #### L 501.5200, L501.6710, L100.0100, L500.2500 ####[facility] [address] [place], [address] GAP 6 Normal 5-15 [facility] Comment on above: Order Comment: 515-1 Performed By: #### L 501.5200, L501.6710, L100.0100, L500.2500 ####[facility] [address] [place], [address] GFR/1.73 sq M.predicted among non-blacks MDRD (S/P/Bld) [Vol rate/Area] 107 mL/min/{1.73_m2} Normal >60 [facility] Comment on above: Order Comment: 515-1 Result Comment: Non- GFR Calc Performed By: #### L 501.5200, L501.6710, L100.0100, L500.2500 ####[facility] [address] [place], [address] Glucose [Mass/Vol] 239 mg/dL High 74-106 [facility] Comment on above: Order Comment: 515-1 Result Comment: Gluc ose result greater than or equal to 200 mg/dLsuggests DIABETES MELLITUS per A.D.A. criteria. Performed By: #### L 501.5200, L501.6710, L100.0100, L500.2500 ####[facility] [address] [place], [address] Potassium [Moles/Vol] 3.8 mmol/L Normal 3.5-5.1 [facility] Comment on above: Order Comment: 515-1 Performed By: #### L 501.5200, L501.6710, L100.0100, L500.2500 ####[facility] [address] [place], [address] Sodium [Moles/Vol] 136 mmol/L Normal 136-145 [facility] Comment on above: Order Comment: 515-1 Performed By: #### L 501.5200, L501.6710, L100.0100, L500.2500 ####[facility] [address] [place], [address] Urea nitrogen [Mass/Vol] 21 mg/dL High 10-30 [facility] Comment on above: Order Comment: 515-1 Performed By: #### L 501.5200, L501.6710, L100.0100, L500.2500 ####[facility] [address] [place], [address] Basophil percentageOrdered B y: Teri Franklin on 05-11-2024 Basophils/100 WBC (Bld) 0.7 % 0-1 [facility] Blood urea nitrogen (BUN)/cr eatinine ratioOrdered By: Teri Franklin on 05-11-2024 Urea nitrogen/Creatinine [Mass ratio] 33.9 mg/mg High 10-20 [facility] C-reactive protein measureme nt by high sensitivity methodOrdered By: Teri Franklin on 05-11-2024 C-reactive protein measurement by high sensitivity method 3.91 mg/L High 0.0-3.0 [facility] Comment on above: C-Reactive Protein ( CRP) provides useful information for thediagnosis, therapy and monitoring of inflammatory processesand associated diseases. For the evaluation of Relative Riskfor Cardiovascular Disease, a High Sensitivity CRP (HSCRP)should be ordered. CBC W/Diff, Automatedon 04-16 Absolute Lymph 1.28 X10 3/uL Normal 0.83-4.51 [facility] Comment on above: Order Comment: 515-1 Performed By: #### L 501.5200, L501.6710, L100.0100, L500.2500 ####[facility] [address] [place], [address] Absolute Neut 3.3 X10 3/uL Normal 2.0-7.7 [facility] Comment on above: Order Comment: 515-1 Performed By: #### L 501.5200, L501.6710, L100.0100, L500.2500 ####[facility] [address] [place], [address] Basophils/100 WBC (Bld) 0.7 % Normal 0-1 [facility] Comment on above: Order Comment: 515-1 Performed By: #### L 501.5200, L501.6710, L100.0100, L500.2500 ####[facility] [address] [place], [address] Eosinophils/100 WBC (Bld) 1.8 % Normal 0-5 [facility] Comment on above: Order Comment: 515-1 Performed By: #### L 501.5200, L501.6710, L100.0100, L500.2500 ####[facility] [address] [place], [address] Erythrocyte distribution width (RBC) [Ratio] 14.4 % Normal 11.6-14.6 [facility] Comment on above: Order Comment: 515-1 Performed By: #### L 501.5200, L501.6710, L100.0100, L500.2500 ####[facility] [address] [place], [address] Hematocrit (Bld) [Volume fraction] 34.5 % Low 37-47 [facility] Comment on above: Order Comment: 515-1 Performed By: #### L 501.5200, L501.6710, L100.0100, L500.2500 ####[facility] [address] [place], [address] Hemoglobin (Bld) [Mass/Vol] 10.9 g/dL Low 12.0-15.0 [facility] Comment on above: Order Comment: 515-1 Performed By: #### L 501.5200, L501.6710, L100.0100, L500.2500 ####[facility] [id number] [place], [address] IG% 2.000 High 0.0-0.9 [facility] Comment on above: Order Comment: 515-1 Result Comment: IG% - Immature Granulocytes (promyelocytes, myelocytes andmetamyelocytes) > 1% indicates that a LEFT SHIFT is Present. Performed By: #### L 501.5200, L501.6710, L100.0100, L500.2500 ####[facility] [address] [place], [address] Lymphocytes/100 WBC (Bld) 23.6 % Normal 19-41 [facility] Comment on above: Order Comment: 515-1 Performed By: #### L 501.5200, L501.6710, L100.0100, L500.2500 ####[facility] [address] [place], [address] MCH (RBC) [Entitic mass] 27.8 pg Normal 27.0-32.0 [facility] Comment on above: Order Comment: 515-1 Performed By: #### L 501.5200, L501.6710, L100.0100, L500.2500 ####[facility] [address] [place], [address] MCHC (RBC) [Mass/Vol] 31.6 g/dL Low 32-36 [facility] Comment on above: Order Comment: 515-1 Performed By: #### L 501.5200, L501.6710, L100.0100, L500.2500 ####[facility] [address] [place], [address] MCV (RBC) [Entitic vol] 88.0 fL Normal 81-99 [facility] Comment on above: Order Comment: 515-1 Performed By: #### L 501.5200, L501.6710, L100.0100, L500.2500 ####[facility] [address] [place], [address] Monocytes/100 WBC (Bld) 11.8 % High 0-10 [facility] Comment on above: Order Comment: 515-1 Performed By: #### L 501.5200, L501.6710, L100.0100, L500.2500 ####[facility] [address] [place], [address] Neutrophils/100 WBC (Bld) 60.1 % Normal 47-70 [facility] Comment on above: Order Comment: 515-1 Performed By: #### L 501.5200, L501.6710, L100.0100, L500.2500 ####[facility] [address] [place], [address] Nucleated RBC (Bld) [#/Vol] 0 10*3/uL Normal 0-5 [facility] Comment on above: Order Comment: 515-1 Performed By: #### L 501.5200, L501.6710, L100.0100, L500.2500 ####[facility] [address] [place], [address] Platelet mean volume (Bld) [Entitic vol] 10.1 fL Normal 6.2-12.0 [facility] Comment on above: Order Comment: 515-1 Performed By: #### L 501.5200, L501.6710, L100.0100, L500.2500 ####[facility] [address] [place], [address] Platelets (Bld) [#/Vol] 375 10*3/uL Normal 150-450 [facility] Comment on above: Order Comment: 515-1 Performed By: #### L 501.5200, L501.6710, L100.0100, L500.2500 ####[facility] [address] [place], [address] RBC (Bld) [#/Vol] 3.92 10*6/uL Low 4.2-5.4 [facility] Comment on above: Order Comment: 515-1 Performed By: #### L 501.5200, L501.6710, L100.0100, L500.2500 ####[facility] [address] [place], [address] RDW SD 45.2 fl High 35.1-43.9 [facility] Comment on above: Order Comment: 515-1 Performed By: #### L 501.5200, L501.6710, L100.0100, L500.2500 ####[facility] [address] [place], [address] WBC (Bld) [#/Vol] 5.4 10*3/uL Normal 4.4-11.0 [facility] Comment on above: Order Comment: 515-1 Performed By: #### L 501.5200, L501.6710, L100.0100, L500.2500 ####[facility] [address] [place], [address] CRPon 05-11-2024 C-REACTIVE PROT 3.91 mg/L High 0.0-3.0 [facility] Comment on above: Order Comment: 515-1 Result Comment: C-Re active Protein (CRP) provides useful information for thediagnosis, therapy and monitoring of inflammatory processesand associated diseases. For the evaluation of Relative Riskfor Cardiovascular Disease, a High Sensitivity CRP (HSCRP)should be ordered. Performed By: #### L 501.5200, L501.6710, L100.0100, L500.2500 ####[facility] [address] [place], [address] Carbon dioxide measurementOr dered By: Teri Franklin on 05-11-2024 CO2 [Moles/Vol] 26.0 mmol/L 21.0-32.0 [facility] Chloride measurementOrdered By: Teri Franklin on 05-11-2024 Chloride [Moles/Vol] 104 mmol/L 98-107 [facility] Eosinophil percentageOrdered By: Teri Franklin on 05-11-2024 Eosinophils/100 WBC (Bld) 1.8 % 0-5 [facility] Erythrocyte distribution wid th ratioOrdered By: Teri Franklin on 05-11-2024 Erythrocyte distribution width (RBC) [Ratio] 14.4 % 11.6-14.6 [facility] Erythrocyte distribution wid th standard deviationOrdered By: Teri Franklin on 05-11-2024 Erythrocyte distribution width (RBC) [Ratio] 45.2 fl High 35.1-43.9 [facility] Glomerular filtration rate ( GFR) estimationOrdered By: Teri Franklin on 05-11-2024 GFR/1.73 sq M.predicted among non-blacks MDRD (S/P/Bld) [Vol rate/Area] 107 mL/min/{1.73_m2} >60 [facility] Comment on above: Non- GFR Calc Glucose measurementOrdered B y: Teri Franklin on 05-11-2024 Glucose [Mass/Vol] 239 mg/dL High 74-106 [facility] Comment on above: Glucose result great er than or equal to 200 mg/dLsuggests DIABETES MELLITUS per A.D.A. criteria. Hematocrit Auto (Bld) [Volum e fraction]Ordered By: Teri Franklin on 05-11-2024 Hematocrit (Bld) [Volume fraction] 34.5 % Low 37-47 [facility] Hemoglobin measurementOrdere d By: Teri Franklin on 05-11-2024 Hemoglobin (Bld) [Mass/Vol] 10.9 g/dL Low 12.0-15.0 [facility] Immature granulocytes/100 WB C Auto (Bld)Ordered By: Teri Franklin on 05-11-2024 Immature granulocytes/100 WBC (Bld) 2.000 % High 0.0-0.9 [facility] Comment on above: IG% - Immature Granu locytes (promyelocytes, myelocytes and metamyelocytes) > 1% indicates that a LEFT SHIFT is Present. MCV (mean corpuscular volume ) determinationOrdered By: Teri Franklin on 05-11-2024 MCV (RBC) [Entitic vol] 88.0 fL 81-99 [facility] Magnesiumon 05-11-2024 Magnesium [Mass/Vol] 2.0 mg/dL Normal 1.6-2.6 [facility] Comment on above: Order Comment: 515-1 Performed By: #### L 501.5200, L501.6710, L100.0100, L500.2500 ####[facility] [address] [place], [address] Magnesium measurementOrdered By: Teri Franklin on 05-11-2024 Magnesium [Mass/Vol] 2.0 mg/dL 1.6-2.6 [facility] Mean corpuscular hemoglobin (MCH) determinationOrdered By: Teri Franklin on 05-11-2024 MCH (RBC) [Entitic mass] 27.8 pg 27.0-32.0 [facility] Mean corpuscular hemoglobin concentration (MCHC) determinationOrdered By: Teri Franklin on 05-11-2024 MCHC (RBC) [Mass/Vol] 31.6 g/dL Low 32-36 [facility] Mean platelet volume determi nationOrdered By: Teri Franklin on 05-11-2024 Platelet mean volume (Bld) [Entitic vol] 10.1 fL 6.2-12.0 [facility] Monocyte percentageOrdered B y: Teri Franklin on 05-11-2024 Monocytes/100 WBC (Bld) 11.8 % High 0-10 [facility] Neutrophil percentageOrdered By: Teri Franklin on 05-11-2024 Neutrophils/100 WBC (Bld) 60.1 % 47-70 [facility] Nucleated red blood cell per centageOrdered By: Teri Franklin on 05-11-2024 Nucleated RBC/100 WBC (Bld) [Ratio] 0 % 0-5 [facility] Platelet countOrdered By: Mehul Franklin on 05-11-2024 Platelets (Bld) [#/Vol] 375 10*3/uL 150-450 [facility] Potassium measurementOrdered By: Teri Franklin on 05-11-2024 Potassium [Moles/Vol] 3.8 mmol/L 3.5-5.1 [facility] RBC Auto (Bld) [#/Vol]Ordere d By: Teri Franklin on 05-11-2024 RBC (Bld) [#/Vol] 3.92 10*6/uL Low 4.2-5.4 [facility] Serum anion gap measurementO rdered By: Teri Franklin on 05-11-2024 Anion gap [Moles/Vol] 6 mmol/L 5-15 [facility] Serum or plasma calcium anna urement (mass/volume)Ordered By: Teri Franklin on 05-11-2024 Calcium [Mass/Vol] 9.0 mg/dL 8.5-10.1 [facility] Serum or plasma creatinine m easurement (mass/volume)Ordered By: Teri Franklin on 05-11-2024 Creatinine [Mass/Vol] 0.62 mg/dL 0.55-1.02 [facility] Comment on above: The validity of the calculated GFR & GFRAA in patients over 70 years has not been determined. Clinical correlation is essential. Serum or plasma urea nitroge n measurement (mass/volume)Ordered By: Teri Franklin on 05-11-2024 Urea nitrogen [Mass/Vol] 21 mg/dL High 7-18 [facility] Sodium levelOrdered By: Landy Franklin on 05-11-2024 Sodium [Moles/Vol] 136 mmol/L 136-145 [facility] White blood cell (WBC) count Ordered By: Teri Franklin on 05-11-2024 WBC (Bld) [#/Vol] 5.4 10*3/uL 4.4-11.0 [facility] Culture, Blood (WB)on 2024 CUB Blood cultures x2, from two different sites No growth in 5 days. Normal [facility] Comment on above: Performed By: #### L 501.4020, L300.4310, L500.4050, M200.1000, L300.3900, L100.0100, L503.6005 ####[facility] [address] [place], [place], [address] CUB Blood cultures x2, from two different sites No growth in 5 days. Normal [facility] Comment on above: Performed By: #### M 200.1000 ####[facility] [address] [place], [address] Absolute lymphocyte countOrd ered By: Teri Franklin on 05-04-2024 Lymphocytes Auto (Unsp spec) [#/Vol] 0.88 10*3/uL 0.83-4.51 [facility] Absolute neutrophil countOrd ered By: Teri Franklin on 05-04-2024 Neutrophils (Bld) [#/Vol] 7.0 10*3/uL 2.0-7.7 [facility] Automated lymphocyte count a s percentage of total leukocytesOrdered By: Teri Franklin on 05-04-2024 Lymphocytes/100 WBC Auto (Unsp spec) 10.0 % Low 19-41 [facility] Basic Metabolic Profile (BMP )on 05-04-2024 BUN/CRE 14.5 RATIO Normal 10-20 [facility] Comment on above: Order Comment: Performed By: #### L 501.9985, L503.0105, L501.5200, L506.1000, L501.9520, L500.2500, L100.0100, L500.4100 ####[facility] [address] [place], [place], [phone] CA,Total 8.8 mg/dL Normal 8.5-10.1 [facility] Comment on above: Order Comment: Performed By: #### L 501.9985, L503.0105, L501.5200, L506.1000, L501.9520, L500.2500, L100.0100, L500.4100 ####[facility] [address] [place], [address] Chloride [Moles/Vol] 102 mmol/L Normal 98-107 [facility] Comment on above: Order Comment: Performed By: #### L 501.9985, L503.0105, L501.5200, L506.1000, L501.9520, L500.2500, L100.0100, L500.4100 ####[facility] [address] [place], [address] CO2 [Moles/Vol] 36.0 mmol/L High 21.0-32.0 [facility] Comment on above: Order Comment: Performed By: #### L 501.9985, L503.0105, L501.5200, L506.1000, L501.9520, L500.2500, L100.0100, L500.4100 ####[facility] [address] [place], [address] Creatinine [Mass/Vol] 0.55 mg/dL Normal 0.55-1.02 [facility] Comment on above: Order Comment: Result Comment: The validity of the calculated GFR GFRAA in patients over70 years has not been determined. Clinical correlation isessential. Performed By: #### L 501.9985, L503.0105, L501.5200, L506.1000, L501.9520, L500.2500, L100.0100, L500.4100 ####[facility] [address] [place], [address] EST GFR - AA 148 mL/min Normal >60 [facility] Comment on above: Order Comment: Result Comment: Afri can [place] GFR Calc Performed By: #### L 501.9985, L503.0105, L501.5200, L506.1000, L501.9520, L500.2500, L100.0100, L500.4100 ####[facility] [address] [place], [address] GAP 2 Low 5-15 [facility] Comment on above: Order Comment: Performed By: #### L 501.9985, L503.0105, L501.5200, L506.1000, L501.9520, L500.2500, L100.0100, L500.4100 ####[facility] [address] [place], [address] GFR/1.73 sq M.predicted among non-blacks MDRD (S/P/Bld) [Vol rate/Area] 122 mL/min/{1.73_m2} Normal >60 [facility] Comment on above: Order Comment: Result Comment: Non- GFR Calc Performed By: #### L 501.9985, L503.0105, L501.5200, L506.1000, L501.9520, L500.2500, L100.0100, L500.4100 ####[facility] [address] [place], [place], [id number] Glucose [Mass/Vol] 109 mg/dL High 74-106 [facility] Comment on above: Order Comment: Result Comment: Fast ing Glucose result from 100 to 125 mg/dLsuggests IMPAIRED HOMEOSTASIS per A.D.A. criteria. Performed By: #### L 501.9985, L503.0105, L501.5200, L506.1000, L501.9520, L500.2500, L100.0100, L500.4100 ####[facility] [address] [place], [place], [id number] Potassium [Moles/Vol] 3.8 mmol/L Normal 3.5-5.1 [facility] Comment on above: Order Comment: Performed By: #### L 501.9985, L503.0105, L501.5200, L506.1000, L501.9520, L500.2500, L100.0100, L500.4100 ####[facility] [address] [place], [address] Sodium [Moles/Vol] 141 mmol/L Normal 136-145 [facility] Comment on above: Order Comment: Performed By: #### L 501.9985, L503.0105, L501.5200, L506.1000, L501.9520, L500.2500, L100.0100, L500.4100 ####[facility] [address] [place], [address] Urea nitrogen [Mass/Vol] 8 mg/dL Normal 7-18 [facility] Comment on above: Order Comment: Performed By: #### L 501.9985, L503.0105, L501.5200, L506.1000, L501.9520, L500.2500, L100.0100, L500.4100 ####[facility] [address] [place], [address] Basophil percentageOrdered B y: Teri Franklin on 05-04-2024 Basophils/100 WBC (Bld) 0.5 % 0- [facility] Blood urea nitrogen (BUN)/cr eatinine ratioOrdered By: Teri Franklin on 05-04-2024 Urea nitrogen/Creatinine [Mass ratio] 14.5 mg/mg 02-01 [facility] CBC W/Diff, Automatedon 04-16 Absolute Lymph 0.88 X10 3/uL Normal 0.83-4.51 [facility] Comment on above: Order Comment: Performed By: #### L 501.9985, L503.0105, L501.5200, L506.1000, L501.9520, L500.2500, L100.0100, L500.4100 ####[facility] [address] [place], [address] Absolute Neut 7.0 X10 3/uL Normal 2.0-7.7 [facility] Comment on above: Order Comment: - Performed By: #### L 501.9985, L503.0105, L501.5200, L506.1000, L501.9520, L500.2500, L100.0100, L500.4100 ####[facility] [address] [place], [address] Basophils/100 WBC (Bld) 0.5 % Normal 0-1 [facility] Comment on above: Order Comment: - Performed By: #### L 501.9985, L503.0105, L501.5200, L506.1000, L501.9520, L500.2500, L100.0100, L500.4100 ####[facility] [address] [place], [address] Eosinophils/100 WBC (Bld) 1.2 % Normal 0-5 [facility] Comment on above: Order Comment: - Performed By: #### L 501.9985, L503.0105, L501.5200, L506.1000, L501.9520, L500.2500, L100.0100, L500.4100 ####[facility] [address] [place], [address] Erythrocyte distribution width (RBC) [Ratio] 14.3 % Normal 11.6-14.6 [facility] Comment on above: Order Comment: - Performed By: #### L 501.9985, L503.0105, L501.5200, L506.1000, L501.9520, L500.2500, L100.0100, L500.4100 ####[facility] [address] [place], [address] Hematocrit (Bld) [Volume fraction] 31.7 % Low 37-47 [facility] Comment on above: Order Comment: - Performed By: #### L 501.9985, L503.0105, L501.5200, L506.1000, L501.9520, L500.2500, L100.0100, L500.4100 ####[facility] [address] [place], [address] Hemoglobin (Bld) [Mass/Vol] 10.1 g/dL Low 12.0-15.0 [facility] Comment on above: Order Comment: Performed By: #### L 501.9985, L503.0105, L501.5200, L506.1000, L501.9520, L500.2500, L100.0100, L500.4100 ####[facility] [address] [place], [address] IG% 1.900 High 0.0-0.9 [facility] Comment on above: Order Comment: Result Comment: IG% - Immature Granulocytes (promyelocytes, myelocytes andmetamyelocytes) > 1% indicates that a LEFT SHIFT is Present. Performed By: #### L 501.9985, L503.0105, L501.5200, L506.1000, L501.9520, L500.2500, L100.0100, L500.4100 ####[facility] [address] [place], [address] Lymphocytes/100 WBC (Bld) 10.0 % Low 19-41 [facility] Comment on above: Order Comment: Performed By: #### L 501.9985, L503.0105, L501.5200, L506.1000, L501.9520, L500.2500, L100.0100, L500.4100 ####[facility] [address] [place], [address] MCH (RBC) [Entitic mass] 28.0 pg Normal 27.0-32.0 [facility] Comment on above: Order Comment: Performed By: #### L 501.9985, L503.0105, L501.5200, L506.1000, L501.9520, L500.2500, L100.0100, L500.4100 ####[facility] [address] [place], [address] MCHC (RBC) [Mass/Vol] 31.9 g/dL Low 32-36 [facility] Comment on above: Order Comment: - Performed By: #### L 501.9985, L503.0105, L501.5200, L506.1000, L501.9520, L500.2500, L100.0100, L500.4100 ####[facility] [address] [place], [address] MCV (RBC) [Entitic vol] 87.8 fL Normal 81-99 [facility] Comment on above: Order Comment: Performed By: #### L 501.9985, L503.0105, L501.5200, L506.1000, L501.9520, L500.2500, L100.0100, L500.4100 ####[facility] [address] [place], [address] Monocytes/100 WBC (Bld) 7.3 % Normal 0-10 [facility] Comment on above: Order Comment: Performed By: #### L 501.9985, L503.0105, L501.5200, L506.1000, L501.9520, L500.2500, L100.0100, L500.4100 ####[facility] [address] [place], [address] Neutrophils/100 WBC (Bld) 79.1 % High 47-70 [facility] Comment on above: Order Comment: - Performed By: #### L 501.9985, L503.0105, L501.5200, L506.1000, L501.9520, L500.2500, L100.0100, L500.4100 ####[facility] [address] [place], [address] Nucleated RBC (Bld) [#/Vol] 0 10*3/uL Normal 0-5 [facility] Comment on above: Order Comment: - Performed By: #### L 501.9985, L503.0105, L501.5200, L506.1000, L501.9520, L500.2500, L100.0100, L500.4100 ####[facility] [address] [place], [address]( Platelet mean volume (Bld) [Entitic vol] 10.3 fL Normal 6.2-12.0 [facility] Comment on above: Order Comment: - Performed By: #### L 501.9985, L503.0105, L501.5200, L506.1000, L501.9520, L500.2500, L100.0100, L500.4100 ####[facility] [address] [place], [place], [phone] Platelets (Bld) [#/Vol] 241 10*3/uL Normal 150-450 [facility] Comment on above: Order Comment: - Performed By: #### L 501.9985, L503.0105, L501.5200, L506.1000, L501.9520, L500.2500, L100.0100, L500.4100 ####[facility] [address] [place], [address](278) RBC (Bld) [#/Vol] 3.61 10*6/uL Low 4.2-5.4 [facility] Comment on above: Order Comment: - Performed By: #### L 501.9985, L503.0105, L501.5200, L506.1000, L501.9520, L500.2500, L100.0100, L500.4100 ####[facility] [address] [place], [address](360) RDW SD 45.0 fl High 35.1-43.9 [facility] Comment on above: Order Comment: Performed By: #### L 501.9985, L503.0105, L501.5200, L506.1000, L501.9520, L500.2500, L100.0100, L500.4100 ####[facility] [address] [place], [address] WBC (Bld) [#/Vol] 8.8 10*3/uL Normal 4.4-11.0 [facility] Comment on above: Order Comment: Performed By: #### L 501.9985, L503.0105, L501.5200, L506.1000, L501.9520, L500.2500, L100.0100, L500.4100 ####[facility] [address] [facility] [place], [place], [id number] PATH REV Reviewed Normal [facility] Comment on above: Result Comment: Neut rophilic leukocytosis with left shift.Normocytic anemia.Clinical correlation necessary.Sheldon Baeza M.D. 05/04/24 AMENDED REPORT 05/04/24 0852 PATH REV previously reported as: August freida Performed By: #### L 500.2500, L100.0100 ####[facility] [address] [facility] [place], [place], [address] Carbon dioxide measurementOr dered By: Teri Franklin on 05-04-2024 CO2 [Moles/Vol] 36.0 mmol/L High 21.0-32.0 [facility] Chloride measurementOrdered By: Teri Franklin on 05-04-2024 Chloride [Moles/Vol] 102 mmol/L 98-107 [facility] Eosinophil percentageOrdered By: Teri Franklin on 05-04-2024 Eosinophils/100 WBC (Bld) 1.2 % 0-5 [facility] Erythrocyte distribution wid th ratioOrdered By: Teri Franklin on 05-04-2024 Erythrocyte distribution width (RBC) [Ratio] 14.3 % 11.6-14.6 [facility] Erythrocyte distribution wid th standard deviationOrdered By: Teri Franklin on 05-04-2024 Erythrocyte distribution width (RBC) [Ratio] 45.0 fl High 35.1-43.9 [facility] Glomerular filtration rate ( GFR) estimationOrdered By: Teri Franklin on 05-04-2024 GFR/1.73 sq M.predicted among non-blacks MDRD (S/P/Bld) [Vol rate/Area] 122 mL/min/{1.73_m2} >60 [facility] Comment on above: Non- GFR Calc Glucose measurementOrdered B y: Teri Franklin on 05-04-2024 Glucose [Mass/Vol] 109 mg/dL High 74-106 [facility] Comment on above: Fasting Glucose resu lt from 100 to 125 mg/dL suggests IMPAIRED HOMEOSTASIS per A.D.A. criteria. Hematocrit Auto (Bld) [Volum e fraction]Ordered By: Teri Franklin on 05-04-2024 Hematocrit (Bld) [Volume fraction] 31.7 % Low 37-47 [facility] Hemoglobin A1con 05-04-2024 HbA1c (Bld) [Mass fraction] 10.5 % High 3.8-5.6 [facility] Comment on above: Order Comment: 212-1 Result Comment: Norm al < 5.7 % Prediabetic 5.7 - 6.4 % Diabetic >or= 6.5 % Please note range changes. Performed By: #### L 501.9985, L503.0105, L501.5200, L506.1000, L501.9520, L500.2500, L100.0100, L500.4100 ####[facility] [address] [place], [place], [id number] Hemoglobin A1c percentageOrd ered By: Teri Franklin on 05-04-2024 HbA1c (Bld) [Mass fraction] 10.5 % High 3.8-5.6 [facility] Comment on above: Normal < 5.7 % Predi abetic 5.7 - 6.4 % Diabetic >or= 6.5 % Please note range changes. Hemoglobin measurementOrdere d By: Teri Franklin on 05-04-2024 Hemoglobin (Bld) [Mass/Vol] 10.1 g/dL Low 12.0-15.0 [facility] High density lipoprotein (HD L) measurementOrdered By: Teri Franklin on 05-04-2024 Cholesterol in HDL [Mass/Vol] 28 mg/dL Low >40 [facility] Comment on above: The drugs N-Acetylcy steine and Metamizole may falsely depress this assay. Reference Range HDL <40 mg/dL Low HDL Cholesterol HDL >or= 60 mg/dL High HDL Cholesterol Immature granulocytes/100 WB C Auto (Bld)Ordered By: Teri Franklin on 05-04-2024 Immature granulocytes/100 WBC (Bld) 1.900 % High 0.0-0.9 [facility] Comment on above: IG% - Immature Granu locytes (promyelocytes, myelocytes and metamyelocytes) > 1% indicates that a LEFT SHIFT is Present. Lipid Profileon 05-04-2024 Cholesterol [Mass/Vol] 146 mg/dL Normal 200 [facility] Comment on above: Order Comment: - Result Comment: <200 mg/dL Desirable 200-240 mg/dL Borderline >240 mg/dL High Risk Performed By: #### L 501.9985, L503.0105, L501.5200, L506.1000, L501.9520, L500.2500, L100.0100, L500.4100 ####[facility] [address] [place], [address] Cholesterol in HDL [Mass/Vol] 28 mg/dL Low [facility] Comment on above: Order Comment: - Result Comment: The drugs N-Acetylcysteine and Metamizole may falselydepress this assay. Reference Range HDL <40 mg/dL Low HDL Cholesterol HDL >or= 60 mg/dL High HDL Cholesterol Performed By: #### L 501.9985, L503.0105, L501.5200, L506.1000, L501.9520, L500.2500, L100.0100, L500.4100 ####[facility] [address] [place], [address] Cholesterol in LDL [Mass/Vol] 96 mg/dL Normal 0-130 [facility] Comment on above: Order Comment: - Performed By: #### L 501.9985, L503.0105, L501.5200, L506.1000, L501.9520, L500.2500, L100.0100, L500.4100 ####[facility] [address] [place], [address] Cholesterol in VLDL [Mass/Vol] 22 mg/dL Normal 5-40 [facility] Comment on above: Order Comment: Performed By: #### L 501.9985, L503.0105, L501.5200, L506.1000, L501.9520, L500.2500, L100.0100, L500.4100 ####[facility] [id number] [place], [address] Triglyceride [Mass/Vol] 109 mg/dL Normal [facility] Comment on above: Order Comment: Result Comment: The drugs N-Acetylcysteine and Metamizole may falselydepress this assay.Serum Triglycerides Reference Interval Normal <150 mg/dL Borderline high 150 - 199 mg/dL High 200 - 499 mg/dL Very High > or = 500 mg/dL Performed By: #### L 501.9985, L503.0105, L501.5200, L506.1000, L501.9520, L500.2500, L100.0100, L500.4100 ####[facility] [address] [place], [place], [id number] Low density lipoprotein (LDL ) cholesterol measurementOrdered By: Teri Franklin on 05-04-2024 Cholesterol in LDL [Mass/Vol] 96 mg/dL 0-130 [facility] MCV (mean corpuscular volume ) determinationOrdered By: Teri Franklin on 05-04-2024 MCV (RBC) [Entitic vol] 87.8 fL 81-99 [facility] Magnesiumon 05-04-2024 Magnesium [Mass/Vol] 2.1 mg/dL Normal 1.6-2.6 [facility] Comment on above: Order Comment: 212-1 Performed By: #### L 501.9985, L503.0105, L501.5200, L506.1000, L501.9520, L500.2500, L100.0100, L500.4100 ####[facility] [address] [place], [address] Magnesium measurementOrdered By: Teri Franklin on 05-04-2024 Magnesium [Mass/Vol] 2.1 mg/dL 1.6-2.6 [facility] Mean corpuscular hemoglobin (MCH) determinationOrdered By: Teri Franklin on 05-04-2024 MCH (RBC) [Entitic mass] 28.0 pg 27.0-32.0 [facility] Mean corpuscular hemoglobin concentration (MCHC) determinationOrdered By: Teri Franklin on 05-04-2024 MCHC (RBC) [Mass/Vol] 31.9 g/dL Low 32-36 [facility] Mean platelet volume determi nationOrdered By: Teri Franklin on 05-04-2024 Platelet mean volume (Bld) [Entitic vol] 10.3 fL 6.2-12.0 [facility] Monocyte percentageOrdered B y: Teri Franklin on 05-04-2024 Monocytes/100 WBC (Bld) 7.3 % 0-10 [facility] Neutrophil percentageOrdered By: Teri Franklin on 05-04-2024 Neutrophils/100 WBC (Bld) 79.1 % High 47-70 [facility] Nucleated red blood cell per centageOrdered By: Teri Franklin on 05-04-2024 Nucleated RBC/100 WBC (Bld) [Ratio] 0 % 0-5 [facility] Platelet countOrdered By: Mehul Franklin on 05-04-2024 Platelets (Bld) [#/Vol] 241 10*3/uL 150-450 [facility] Potassium measurementOrdered By: Teri Franklin on 05-04-2024 Potassium [Moles/Vol] 3.8 mmol/L 3.5-5.1 [facility] RBC Auto (Bld) [#/Vol]Ordere d By: Teri Franklin on 05-04-2024 RBC (Bld) [#/Vol] 3.61 10*6/uL Low 4.2-5.4 [facility] Serum anion gap measurementO rdered By: Teri Franklin on 05-04-2024 Anion gap [Moles/Vol] 2 mmol/L Low 5-15 [facility] Serum or plasma calcium anna urement (mass/volume)Ordered By: Teri Franklin on 05-04-2024 Calcium [Mass/Vol] 8.8 mg/dL 8.5-10.1 [facility] Serum or plasma cholesterol measurement (mass/volume)Ordered By: Teri Franklin on 05-04-2024 Cholesterol [Mass/Vol] 146 mg/dL <200 [facility] Comment on above: <200 mg/dL Desirable 200-240 mg/dL Borderline >240 mg/dL High Risk Serum or plasma creatinine m easurement (mass/volume)Ordered By: Teri Franklin on 05-04-2024 Creatinine [Mass/Vol] 0.55 mg/dL 0.55-1.02 [facility] Comment on above: The validity of the calculated GFR & GFRAA in patients over 70 years has not been determined. Clinical correlation is essential. Serum or plasma thyroid stim ulating hormone (TSH) measurement (units/volume)Ordered By: Teri Franklin on 05-04-2024 TSH Qn 3.000 uIU/mL 0.358-3.740 [facility] Serum or plasma urea nitroge n measurement (mass/volume)Ordered By: Teri Franklin on 05-04-2024 Urea nitrogen [Mass/Vol] 8 mg/dL 7-18 [facility] Sodium levelOrdered By: Landy Franklin on 05-04-2024 Sodium [Moles/Vol] 141 mmol/L 136-145 [facility] Thyroid Stim Hormone (TSH)on 05-04-2024 TSH 3.000 uIU/mL Normal 0.358-3.740 [facility] Comment on above: Order Comment: Performed By: #### L 501.9985, L503.0105, L501.5200, L506.1000, L501.9520, L500.2500, L100.0100, L500.4100 ####[facility] [address] [place], [place], [address] Triglycerides measurementOrd ered By: Teri Franklin on 05-04-2024 Triglyceride [Mass/Vol] 109 mg/dL <199 [facility] Comment on above: The drugs N-Acetylcy steine and Metamizole may falsely depress this assay.Serum Triglycerides Reference Interval Normal <150 mg/dL Borderline high 150 - 199 mg/dL High 200 - 499 mg/dL Very High > or = 500 mg/dL Very low density lipoprotein (VLDL) cholesterol measurementOrdered By: Teri Franklin on 05-04-2024 Very low density lipoprotein (VLDL) cholesterol measurement 22 mg/dL 5-40 [facility] Vitamin B12on 05-04-2024 Cobalamin (Vitamin B12) [Mass/Vol] 1184 pg/mL High 211-911 [facility] Comment on above: Order Comment: Performed By: #### L 501.9985, L503.0105, L501.5200, L506.1000, L501.9520, L500.2500, L100.0100, L500.4100 ####[facility] [address] [place], [place], [id number] Vitamin B12 measurementOrder ed By: Teri Franklin on 05-04-2024 Cobalamin (Vitamin B12) [Mass/Vol] 1184 pg/mL High 211-911 [facility] Vitamin D,25 Hydroxyon 05-04 Vitamin D 25-OH 28.9 ng/mL Normal [facility] Comment on above: Order Comment: Result Comment: Crissy min D 25(OH) Status Range Deficiency <20 ng/mL (50nmol/L) Insufficiency 20 - 30 ng/mL (50 - 75 nmol/L) Sufficiency 30 - 100 ng/mL (75 - 250 nmol/L) Toxicity >100 ng/mL (>250 nmol/L) Performed By: #### L 501.9985, L503.0105, L501.5200, L506.1000, L501.9520, L500.2500, L100.0100, L500.4100 ####[facility] [address] [place], [address] White blood cell (WBC) count Ordered By: Teri Franklin on 05-04-2024 WBC (Bld) [#/Vol] 8.8 10*3/uL 4.4-11.0 [facility] Bedside Glucoseon 05-02-2024 FINGERSTICK GLU 63 mg/dL Low 74-106 [facility] Comment on above: Result Comment: DELLA COX OF PATIENT CARE PER NURSING PROTOCOL Performed By: #### L 501.080 ####[facility] [address] [place], [address] Hepatitis C,RNA PCR Viral Lo coin box collector 05-02-2024 HCV QT RNA PCR >100,000,000 Normal . [facility] Comment on above: Performed By: #### L 3000.0375, L7000.7000 ####[facility] [address] [place], [place], [address] TEST INFO: Comment Normal . [facility] Comment on above: Result Comment: The quantitative range of this assay is 15 IU/mL to 100million IU/mL.Performed at: [facility] [employer] [id number] Director: Dave Peters PhD, Phone: [phone] at: [facility] [id number] Director: Ellie Arshad MD, Phone: [phone] Performed By: #### L 3000.0375, L7000.7000 ####[facility] [address] [place], [place], [id number] Hepatitis Panel Acuteon 04-15 HCV Interpretat Comment Normal . [facility] Comment on above: Result Comment: Posi tive HCV antibody screen with the presence of HCV RNAis consistent with active infection. Performed By: #### L 3000.0375, L7000.7000 ####[facility] [address] [place], [address] HCV log 10 TNP Normal . [facility] Comment on above: Performed By: #### L 3000.0375, L7000.7000 ####[facility] [address] [place], [address] HEP B CORE,IgM Negative Normal Negative [facility] Comment on above: Performed By: #### L 3000.0375, L7000.7000 ####[facility] [address] [place], [address] HEP B SURF AG Negative Normal Negative [facility] Comment on above: Performed By: #### L 3000.0375, L7000.7000 ####[facility] [address] [place], [address] Hep C Quant >100,000,000 Normal . [facility] Comment on above: Performed By: #### L 3000.0375, L7000.7000 ####[facility] [address] [place], [address] HEP C VIRUS AB Reactive Abnormal Non Reactive [facility] Comment on above: Performed By: #### L 3000.0375, L7000.7000 ####[facility] [address] [place], [address] HEPATITIS A-IgM Negative Normal Negative [facility] Comment on above: Result Comment: A ne gative anti-HAV IgM result suggests no recent orcurrent HAV infection. Performed By: #### L 3000.0375, L7000.7000 ####[facility] [address] [place], [address] Test Informatio Comment Normal . [facility] Comment on above: Result Comment: The quantitative range of this assay is 15 IU/mL to 100million IU/mL. Performed By: #### L 3000.0375, L7000.7000 ####[facility] [address] [place], [address] Urine Cultureon 05-02-2024 U[facility] Yeast, not Nirmala albicans [place] Count 1000-10,000 Normal [facility] Comment on above: Performed By: #### M 100.2200, L400.0001 ####[facility] [address] [place], [address] Absolute lymphocyte countOrd ered By: Farhad Ma on 05-01-2024 Lymphocytes Auto (Unsp spec) [#/Vol] 2.23 10*3/uL 0.83-4.51 [facility] Absolute neutrophil countOrd ered By: Farhad Ma on 05-01-2024 Neutrophils (Bld) [#/Vol] 13.8 10*3/uL High 2.0-7.7 [facility] Basic Metabolic Profile (BMP )on 05-01-2024 BUN/CRE 18.1 RATIO Normal 10-20 [facility] Comment on above: Performed By: #### L 500.2500, L100.0100 ####[facility] [address] [place], [address] CA,Total 7.9 mg/dL Low 8.5-10.1 [facility] Comment on above: Performed By: #### L 500.2500, L100.0100 ####[facility] [address] [place], [address] Chloride [Moles/Vol] 109 mmol/L High 98-107 [facility] Comment on above: Performed By: #### L 500.2500, L100.0100 ####[facility] [address] [place], [address] CO2 [Moles/Vol] 27.0 mmol/L Normal 21.0-32.0 [facility] Comment on above: Performed By: #### L 500.2500, L100.0100 ####[facility] [address] [place], [address] Creatinine [Mass/Vol] 0.50 mg/dL Low 0.55-1.02 [facility] Comment on above: Result Comment: The validity of the calculated GFR GFRAA in patients over70 years has not been determined. Clinical correlation isessential. Performed By: #### L 500.2500, L100.0100 ####[facility] [address] [place], [address] ECRCL 138.94 ml/min Normal [facility] Comment on above: Performed By: #### L 500.2500, L100.0100 ####[facility] [address] [place], [address] EST GFR - AA 167 mL/min Normal >60 [facility] Comment on above: Result Comment: Afri can [place] GFR Calc Performed By: #### L 500.2500, L100.0100 ####[facility] [address] [place], [address] GAP 3 Low 5-15 [facility] Comment on above: Performed By: #### L 500.2500, L100.0100 ####[facility] [address] [place], [address] GFR/1.73 sq M.predicted among non-blacks MDRD (S/P/Bld) [Vol rate/Area] 138 mL/min/{1.73_m2} Normal >60 [facility] Comment on above: Result Comment: Non- GFR Calc Performed By: #### L 500.2500, L100.0100 ####[facility] [address] [place], [address] Glucose [Mass/Vol] 110 mg/dL High 74-106 [facility] Comment on above: Result Comment: Fast ing Glucose result from 100 to 125 mg/dLsuggests IMPAIRED HOMEOSTASIS per A.D.A. criteria. Performed By: #### L 500.2500, L100.0100 ####[facility] [address] [place], [address] Potassium [Moles/Vol] 3.8 mmol/L Normal 3.5-5.1 [facility] Comment on above: Performed By: #### L 500.2500, L100.0100 ####[facility] [address] [place], [address] Sodium [Moles/Vol] 140 mmol/L Normal 136-145 [facility] Comment on above: Performed By: #### L 500.2500, L100.0100 ####[facility] [address] [place], [address] Urea nitrogen [Mass/Vol] 9 mg/dL Normal 7-18 [facility] Comment on above: Performed By: #### L 500.2500, L100.0100 ####[facility] [address] [place], [address] BUN Normal 7-18 [facility] Comment on above: Result Comment: Canc elled via OM: Order cancelled - Patient discharged Performed By: #### L 100.0100, L500.2500 ####[facility] [address] [place], [address] BUN/CRE Normal 10-20 [facility] Comment on above: Result Comment: Canc elled via OM: Order cancelled - Patient discharged Performed By: #### L 100.0100, L500.2500 ####[facility] [address] [place], [address] CA,Total Normal 8.5-10.1 [facility] Comment on above: Result Comment: Canc elled via OM: Order cancelled - Patient discharged Performed By: #### L 100.0100, L500.2500 ####[facility] [address] [place], [address] CL Normal 98-107 [facility] Comment on above: Result Comment: Canc elled via OM: Order cancelled - Patient discharged Performed By: #### L 100.0100, L500.2500 ####[facility] [address] [place], [address] CO2 Normal 21.0-32.0 [facility] Comment on above: Result Comment: Canc elled via OM: Order cancelled - Patient discharged Performed By: #### L 100.0100, L500.2500 ####[facility] [address] [place], [address] CREAT,SERUM Normal 0.55-1.02 [facility] Comment on above: Result Comment: Canc elled via OM: Order cancelled - Patient discharged Performed By: #### L 100.0100, L500.2500 ####[facility] [address] [place], [address] EST GFR Normal >60 [facility] Comment on above: Result Comment: Canc elled via OM: Order cancelled - Patient discharged Performed By: #### L 100.0100, L500.2500 ####[facility] [address] [place], [address] EST GFR - AA Normal >60 [facility] Comment on above: Result Comment: Canc elled via OM: Order cancelled - Patient discharged Performed By: #### L 100.0100, L500.2500 ####[facility] [address] [place], [address] GAP Normal 5-15 [facility] Comment on above: Result Comment: Canc elled via OM: Order cancelled - Patient discharged Performed By: #### L 100.0100, L500.2500 ####[facility] [facility] [address] [place], [address] GLU Normal 74-106 [facility] Comment on above: Result Comment: Canc elled via OM: Order cancelled - Patient discharged Performed By: #### L 100.0100, L500.2500 ####[facility] [address] [place], [address] Potassium Normal 3.5-5.1 [facility] Comment on above: Result Comment: Canc elled via OM: Order cancelled - Patient discharged Performed By: #### L 100.0100, L500.2500 ####[facility] [address] [place], [address] Basic Metabolic Profile (BMP) Normal 136-145 [facility] Comment on above: Result Comment: Canc elled via OM: Order cancelled - Patient discharged Performed By: #### L 100.0100, L500.2500 ####[facility] [address] [place], [address] Bedside Glucoseon 05-01-2024 FINGERSTICK GLU 118 mg/dL High 74-106 [facility] Comment on above: Result Comment: DELLA GEMENT OF PATIENT CARE PER NURSING PROTOCOL Performed By: #### L 501.080 ####[facility] [address] [place], [address] FINGERSTICK GLU 90 mg/dL Normal 74-106 [facility] Comment on above: Result Comment: DELLA GEMENT OF PATIENT CARE PER NURSING PROTOCOL Performed By: #### L 501.080 ####[facility] [address] [place], [address] FINGERSTICK GLU 109 mg/dL High 74-106 [facility] Comment on above: Result Comment: DELLA GEMENT OF PATIENT CARE PER NURSING PROTOCOL Performed By: #### L 501.080 ####[facility] [address] [place], [address] Blood band neutrophil count as percentage of total leukocytesOrdered By: Farhad Ma on 05-01-2024 Band form neutrophils/100 WBC (Bld) 2 % 0-5 [facility] Blood eosinophils/100 leukoc ytesOrdered By: Farhad Ma on 05-01-2024 Eosinophils/100 WBC (Bld) 2 % 0-5 [facility] Blood lymphocytes/100 leukoc ytesOrdered By: Farhad Ma on 05-01-2024 Lymphocytes/100 WBC (Bld) 13 % Low 19-41 [facility] Blood metamyelocytes/100 alexander kocytesOrdered By: Farhad Ma on 05-01-2024 Metamyelocytes/100 WBC (Bld) 2 % High 0-1 [facility] Blood monocytes/100 leukocyt esOrdered By: Farhad Ma on 05-01-2024 Monocytes/100 WBC (Bld) 3 % 0-10 [facility] Blood segmented neutrophils/ 100 leukocytesOrdered By: Farhad Ma on 05-01-2024 Segmented neutrophils/100 WBC (Bld) 78 % High 47-70 [facility] Blood urea nitrogen (BUN)/cr eatinine ratioOrdered By: Farhad Ma on 05-01-2024 Urea nitrogen/Creatinine [Mass ratio] 18.1 mg/mg 10-20 [facility] CBC W/Diff, Automatedon 04-15 Absolute Neut Normal 2.0-7.7 [facility] Comment on above: Result Comment: Canc elled via OM: Order cancelled - Patient discharged Performed By: #### L 100.0100, L500.2500 ####[facility] [address] [place], [address] HCT Normal 37-47 [facility] Comment on above: Result Comment: Canc elled via OM: Order cancelled - Patient discharged Performed By: #### L 100.0100, L500.2500 ####[facility] [address] [place], [address] HGB Normal 12.0-15.0 [facility] Comment on above: Result Comment: Canc elled via OM: Order cancelled - Patient discharged Performed By: #### L 100.0100, L500.2500 ####[facility] [address] [place], [address] MCH Normal 27.0-32.0 [facility] Comment on above: Result Comment: Canc elled via OM: Order cancelled - Patient discharged Performed By: #### L 100.0100, L500.2500 ####[facility] [address] [place], [address] MCHC Normal 32-36 [facility] Comment on above: Result Comment: Canc elled via OM: Order cancelled - Patient discharged Performed By: #### L 100.0100, L500.2500 ####[facility] [address] [place], [address] MCV Normal 81-99 [facility] Comment on above: Result Comment: Canc elled via OM: Order cancelled - Patient discharged Performed By: #### L 100.0100, L500.2500 ####[facility] [address] [place], [address] NEUT% Normal 47-70 [facility] Comment on above: Result Comment: Canc elled via OM: Order cancelled - Patient discharged Performed By: #### L 100.0100, L500.2500 ####[facility] [address] [place], [address] PLT Normal 150-450 [facility] Comment on above: Result Comment: Canc elled via OM: Order cancelled - Patient discharged Performed By: #### L 100.0100, L500.2500 ####[facility] [address] [place], [address] RBC Normal 4.2-5.4 [facility] Comment on above: Result Comment: Canc elled via OM: Order cancelled - Patient discharged Performed By: #### L 100.0100, L500.2500 ####[facility] [address] [place], [address] RDW CV Normal 11.6-14.6 [facility] Comment on above: Result Comment: Canc elled via OM: Order cancelled - Patient discharged Performed By: #### L 100.0100, L500.2500 ####[facility] [address] [place], [address] RDW SD Normal 35.1-43.9 [facility] Comment on above: Result Comment: Canc elled via OM: Order cancelled - Patient discharged Performed By: #### L 100.0100, L500.2500 ####[facility] [address] [place], [address] WBC Normal 4.4-11.0 [facility] Comment on above: Result Comment: Canc elled via OM: Order cancelled - Patient discharged Performed By: #### L 100.0100, L500.2500 ####[facility] [address] [place], [address] Carbon dioxide measurementOr dered By: Farhad Ma on 05-01-2024 CO2 [Moles/Vol] 27.0 mmol/L 21.0-32.0 [facility] Chloride measurementOrdered By: Farhad Ma on 05-01-2024 Chloride [Moles/Vol] 109 mmol/L High 98-107 [facility] Culture, Blood (WB)on 2024 CUB Blood cultures x2, from two different sites No growth in 5 days. Normal [facility] Comment on above: Performed By: #### M 200.1000 ####[facility] [address] [place], [address] Erythrocyte distribution wid th ratioOrdered By: Farhad Ma on 05-01-2024 Erythrocyte distribution width (RBC) [Ratio] 14.2 % 11.6-14.6 [facility] Erythrocyte distribution wid th standard deviationOrdered By: Farhad Ma on 05-01-2024 Erythrocyte distribution width (RBC) [Ratio] 43.4 fl 35.1-43.9 [facility] Erythrocyte morphology asses smentOrdered By: Farhad Ma on 05-01-2024 RBC morphology finding Nom (Bld) NORM C+C NORMAL NORM C&C [facility] Glomerular filtration rate ( GFR) estimationOrdered By: Farhad Ma on 05-01-2024 GFR/1.73 sq M.predicted among non-blacks MDRD (S/P/Bld) [Vol rate/Area] 138 mL/min/{1.73_m2} >60 [facility] Comment on above: Non- GFR Calc Glucose measurementOrdered B y: Farhad Ma on 05-01-2024 Glucose [Mass/Vol] 110 mg/dL High 74-106 [facility] Comment on above: Fasting Glucose resu lt from 100 to 125 mg/dL suggests IMPAIRED HOMEOSTASIS per A.D.A. criteria. [facility] deOrdered By: Farhad Ma on 05-01-2024 Glucose [Mass/Vol] 118 mg/dL [facility] 74-106 [facility] Comment on above: MANAGEMENT OF PATIEN T CARE PER NURSING PROTOCOL Hematocrit Auto (Bld) [Volum e fraction]Ordered By: Farhad Ma on 05-01-2024 Hematocrit (Bld) [Volume fraction] 29.1 % Low 37-47 [facility] Hemoglobin measurementOrdere d By: Farhad Ma on 05-01-2024 Hemoglobin (Bld) [Mass/Vol] 9.5 g/dL Low 12.0-15.0 [facility] MCV (mean corpuscular volume ) determinationOrdered By: Farhad Ma on 05-01-2024 MCV (RBC) [Entitic vol] 85.6 fL 81-99 [facility] Mean corpuscular hemoglobin (MCH) determinationOrdered By: Farhad Ma on 05-01-2024 MCH (RBC) [Entitic mass] 27.9 pg 27.0-32.0 [facility] Mean corpuscular hemoglobin concentration (MCHC) determinationOrdered By: Farhad Ma on 05-01-2024 MCHC (RBC) [Mass/Vol] 32.6 g/dL 32-36 [facility] Mean platelet volume determi nationOrdered By: Farhad Ma on 05-01-2024 Platelet mean volume (Bld) [Entitic vol] 9.3 fL 6.2-12.0 [facility] Platelet countOrdered By: Eva Ma on 05-01-2024 Platelets (Bld) [#/Vol] 225 10*3/uL 150-450 [facility] Platelet estimateOrdered By: Farhad Ma on 05-01-2024 Platelets LM Ql (Bld) ADEQUATE ADEQ [facility] Potassium measurementOrdered By: Farhad Ma on 05-01-2024 Potassium [Moles/Vol] 3.8 mmol/L 3.5-5.1 [facility] RBC Auto (Bld) [#/Vol]Ordere d By: Farhad Ma on 05-01-2024 RBC (Bld) [#/Vol] 3.40 10*6/uL Low 4.2-5.4 [facility] Review by pathologistOrdered By: Farhad Ma on 05-01-2024 Pathologist review Danny (Unsp spec) [Interp] Reviewed [facility] Comment on above: Previous reported re sult: Kim guan Edited by: CHARLENE on 05/04/24:0852Neutrophilic leukocytosis with left shift.Normocytic anemia.Clinical correlation necessary.Sheldon Baeza M.D. 05/04/24 AMENDED REPORT 05/04/24 0852 PATH REV previously reported as: Kim guan Serum anion gap measurementO rdered By: Farhad Ma on 05-01-2024 Anion gap [Moles/Vol] 3 mmol/L Low 5-15 [facility] Serum or plasma calcium anna urement (mass/volume)Ordered By: Farhad Ma on 05-01-2024 Calcium [Mass/Vol] 7.9 mg/dL Low 8.5-10.1 [facility] Serum or plasma creatinine m easurement (mass/volume)Ordered By: Farhad Ma on 05-01-2024 Creatinine [Mass/Vol] 0.50 mg/dL Low 0.55-1.02 [facility] Comment on above: The validity of the calculated GFR & GFRAA in patients over 70 years has not been determined. Clinical correlation is essential. Serum or plasma urea nitroge n measurement (mass/volume)Ordered By: Farhad Ma on 05-01-2024 Urea nitrogen [Mass/Vol] 9 mg/dL 7-18 [facility] Sodium levelOrdered By: David Ma on 05-01-2024 Sodium [Moles/Vol] 140 mmol/L 136-145 [facility] Total cell countOrdered By: Farhad Ma on 05-01-2024 Cells counted [employer] (Bld/Tiss) [#] 100 MANUAL DIFF [facility] White blood cell (WBC) count Ordered By: Farhad Ma on 05-01-2024 WBC (Bld) [#/Vol] 17.2 10*3/uL High 4.4-11.0 [facility] BNP (brain natriuretic pepti de measurement)Ordered By: Vicente Rossi on 04-30-2024 Natriuretic peptide B (Bld) [Mass/Vol] 110.2 pg/mL High 0-100 [facility] BNP,B-Type NATRIURETIC PEPTI Angela 04-30-2024 Natriuretic peptide B (Bld) [Mass/Vol] 110.2 pg/mL High 0-100 [facility] Comment on above: Performed By: #### L 486.6620 ####[facility] [address] [place], [place], [address] Natriuretic peptide B (Bld) [Mass/Vol] 99.7 pg/mL Normal 0-100 [facility] Comment on above: Performed By: #### L [id number] ####[facility] [address] [place], [address] Basic Metabolic Profile (BMP )on 04-30-2024 BUN Normal 7-18 [facility] Comment on above: Result Comment: Canc elled via OM: Order cancelled - Patient discharged Performed By: #### L 500.2500, L100.0100 ####[facility] [address] [place], [address] BUN/CRE Normal 10-20 [facility] Comment on above: Result Comment: Canc elled via OM: Order cancelled - Patient discharged Performed By: #### L 500.2500, L100.0100 ####[facility] [address] [place], [address] CA,Total Normal 8.5-10.1 [facility] Comment on above: Result Comment: Canc elled via OM: Order cancelled - Patient discharged Performed By: #### L 500.2500, L100.0100 ####[facility] [address] [place], [address] CL Normal 98-107 [facility] Comment on above: Result Comment: Canc elled via OM: Order cancelled - Patient discharged Performed By: #### L 500.2500, L100.0100 ####[facility] [address] [place], [address] CO2 Normal 21.0-32.0 [facility] Comment on above: Result Comment: Canc elled via OM: Order cancelled - Patient discharged Performed By: #### L 500.2500, L100.0100 ####[facility] [address] [place], [address] CREAT,SERUM Normal 0.55-1.02 [facility] Comment on above: Result Comment: Canc elled via OM: Order cancelled - Patient discharged Performed By: #### L 500.2500, L100.0100 ####[facility] [address] [place], [address] EST GFR Normal >60 [facility] Comment on above: Result Comment: Canc elled via OM: Order cancelled - Patient discharged Performed By: #### L 500.2500, L100.0100 ####[facility] [address] [place], [address] EST GFR - AA Normal >60 [facility] Comment on above: Result Comment: Canc elled via OM: Order cancelled - Patient discharged Performed By: #### L 500.2500, L100.0100 ####[facility] [address] [place], [address] GAP Normal 5-15 [facility] Comment on above: Result Comment: Canc elled via OM: Order cancelled - Patient discharged Performed By: #### L 500.2500, L100.0100 ####[facility] [address] [place], [address] GLU Normal 74-106 [facility] Comment on above: Result Comment: Canc elled via OM: Order cancelled - Patient discharged Performed By: #### L 500.2500, L100.0100 ####[facility] [address] [place], [address] Potassium Normal 3.5-5.1 [facility] Comment on above: Result Comment: Canc elled via OM: Order cancelled - Patient discharged Performed By: #### L 500.2500, L100.0100 ####[facility] [address] [place], [address] Basic Metabolic Profile (BMP) Normal 136-145 [facility] Comment on above: Result Comment: Canc elled via OM: Order cancelled - Patient discharged Performed By: #### L 500.2500, L100.0100 ####[facility] [address] [place], [address] Bedside Glucoseon 04-30-2024 FINGERSTICK GLU 151 mg/dL High 74-106 [facility] Comment on above: Result Comment: DELLA COX OF PATIENT CARE PER NURSING PROTOCOL Performed By: #### L 501.080 ####[facility] [address] [place], [address] FINGERSTICK GLU 226 mg/dL High 74-106 [facility] Comment on above: Result Comment: DELLA GEMENT OF PATIENT CARE PER NURSING PROTOCOL Performed By: #### L 501.080 ####[facility] [address] [place], [address] FINGERSTICK GLU 212 mg/dL High 74-106 [facility] Comment on above: Result Comment: DELLA GEMENT OF PATIENT CARE PER NURSING PROTOCOL Performed By: #### L 501.080 ####[facility] [address] [place], [address] FINGERSTICK GLU 230 mg/dL High -106 [facility] Comment on above: Result Comment: DELLA GEMENT OF PATIENT CARE PER NURSING PROTOCOL Performed By: #### L 501.080 ####[facility] [address] [place], [address] FINGERSTICK GLU 252 mg/dL High -106 [facility] Comment on above: Result Comment: DELLA GEMENT OF PATIENT CARE PER NURSING PROTOCOL Performed By: #### L 501.080 ####[facility] [address] [place], [address] CBC W/Diff, Automatedon 04-15 PATH REV Reviewed Normal [facility] Comment on above: Result Comment: Leuk ocytosis WITH Neutrophilic left shift.Clinical correlation necessary.Sheldon Baeza M.D. 04/30/24 AMENDED REPORT 04/30/24 1348 PATH REV previously reported as: August freida Performed By: #### L 501.4020, L300.4310, L500.4050, M200.1000, L300.3900, L100.0100, L503.6005 ####[facility] [address] [place], [address] Absolute Neut Normal 2.0-7.7 [facility] Comment on above: Result Comment: Canc elled via OM: Order cancelled - Patient discharged Performed By: #### L 500.2500, L100.0100 ####[facility] [address] [place], [address] HCT Normal 37-47 [facility] Comment on above: Result Comment: Canc elled via OM: Order cancelled - Patient discharged Performed By: #### L 500.2500, L100.0100 ####[facility] [address] [place], [address] HGB Normal 12.0-15.0 [facility] Comment on above: Result Comment: Canc elled via OM: Order cancelled - Patient discharged Performed By: #### L 500.2500, L100.0100 ####[facility] [address] [place], [address] MCH Normal 27.0-32.0 [facility] Comment on above: Result Comment: Canc elled via OM: Order cancelled - Patient discharged Performed By: #### L 500.2500, L100.0100 ####[facility] [address] [place], [address] MCHC Normal 32-36 [facility] Comment on above: Result Comment: Canc elled via OM: Order cancelled - Patient discharged Performed By: #### L 500.2500, L100.0100 ####[facility] [address] [place], [address] MCV Normal 81-99 [facility] Comment on above: Result Comment: Canc elled via OM: Order cancelled - Patient discharged Performed By: #### L 500.2500, L100.0100 ####[facility] [address] [place], [address] NEUT% Normal 47-70 [facility] Comment on above: Result Comment: Canc elled via OM: Order cancelled - Patient discharged Performed By: #### L 500.2500, L100.0100 ####[facility] [address] [place], [address] PLT Normal 150-450 [facility] Comment on above: Result Comment: Canc elled via OM: Order cancelled - Patient discharged Performed By: #### L 500.2500, L100.0100 ####[facility] [address] [place], [address] RBC Normal 4.2-5.4 [facility] Comment on above: Result Comment: Canc elled via OM: Order cancelled - Patient discharged Performed By: #### L 500.2500, L100.0100 ####[facility] [address] [place], [address] RDW CV Normal 11.6-14.6 [facility] Comment on above: Result Comment: Canc elled via OM: Order cancelled - Patient discharged Performed By: #### L 500.2500, L100.0100 ####[facility] [address] [place], [address] RDW SD Normal 35.1-43.9 [facility] Comment on above: Result Comment: Canc elled via OM: Order cancelled - Patient discharged Performed By: #### L 500.2500, L100.0100 ####[facility] [address] [place], [address] WBC Normal 4.4-11.0 [facility] Comment on above: Result Comment: Canc elled via OM: Order cancelled - Patient discharged Performed By: #### L 500.2500, L100.0100 ####[facility] [address] [place], [address] Chest 1 View (Portable)on Chest 1 View (Portable) Normal [facility] Urine Drug Screen (VISTA)on 04-30-2024 AMPHETAMINES Negative Normal <1000 ng/mL [facility] Comment on above: Performed By: #### L 505.5000 ####[facility] [address] [place] [address] BARBITIURATES Negative Normal < 200 ng/mL [facility] Comment on above: Performed By: #### L 505.5000 ####[facility] [address] [place] [address] BENZODIAZIPINE Negative Normal < 200 ng/mL [facility] Comment on above: Performed By: #### L 505.5000 ####[facility] [address] [place] [address] COCAINE Negative Normal < 300 ng/mL [facility] Comment on above: Performed By: #### L 505.5000 ####[facility] [address] [place] [address] ECSTACY Negative Normal < 500 ng/mL [facility] Comment on above: Performed By: #### L 505.5000 ####[facility] [address] [place] [address] METHADONE Negative Normal < 300 ng/mL [facility] Comment on above: Performed By: #### L 505.5000 ####[facility] [address] [place] [address] OPIATES Negative Normal < 300 ng/mL [facility] Comment on above: Performed By: #### L 505.5000 ####[facility] [address] [place] [address] PCP Negative Normal < 25 ng/mL [facility] Comment on above: Performed By: #### L 505.5000 ####[facility] [address] [place] [address] THC Negative Normal < 50 ng/mL [facility] Comment on above: Performed By: #### L 505.5000 ####[facility] [address] [place], [address] VISTA UDS PH 6 Normal [facility] Comment on above: Performed By: #### L 505.5000 ####[facility] [address] [place], [address] Acetone Serumon 04-29-2024 ACETONE SERUM Negative Normal NEG [facility] Comment on above: Performed By: #### L 501.6900 ####[facility] [address] [place], [address] Activated partial thrombopla stin time (aPTT) in platelet poor plasma by coagulation aOrdered By: Yonas Mccullough on 04-29-2024 aPTT Coag (PPP) [Time] 27.1 s 24.1-36.2 [facility] Albumin to globulin ratioOrd ered By: Yonas Mccullough on 04-29-2024 Albumin/Globulin [Mass ratio] 0.4 {ratio} Low 0.9-2.4 [facility] Comment on above: Order Comment: 'TROP ' Serial specimen #1, #2 or #3: 1 Performed By: #### L 501.4020, L300.4310, L500.4050, M200.1000, L300.3900, L100.0100, L503.6005 ####[facility] [address] [place], [address] Amorphous sediment detection in urine sediment by light microscopyOrdered By: Yonas Mccullough on 04-29-2024 Amorphous sediment LM Ql (Urine sed) 1+ URATE [facility] Basic Metabolic Profile (BMP )on 04-29-2024 BUN/CRE 32.6 RATIO High 10-20 [facility] Comment on above: Performed By: #### L 100.0100, L500.2500 ####[facility] [address] [place], [address] CA,Total 7.9 mg/dL Low 8.5-10.1 [facility] Comment on above: Performed By: #### L 100.0100, L500.2500 ####[facility] [address] [place], [address] Chloride [Moles/Vol] 109 mmol/L High 98-107 [facility] Comment on above: Performed By: #### L 100.0100, L500.2500 ####[facility] [address] [place], [address] Creatinine [Mass/Vol] 0.52 mg/dL Low 0.55-1.02 [facility] Comment on above: Result Comment: The validity of the calculated GFR GFRAA in patients over70 years has not been determined. Clinical correlation isessential. Performed By: #### L 100.0100, L500.2500 ####[facility] [address] [place], [address] ECRCL 131.15 ml/min Normal [facility] Comment on above: Performed By: #### L 100.0100, L500.2500 ####[facility] [address] [place], [address] EST GFR - AA 158 mL/min Normal >60 [facility] Comment on above: Result Comment: Afri can [place] GFR Calc Performed By: #### L 100.0100, L500.2500 ####[facility] [address] [place], [address] GAP 6 Normal 5-15 [facility] Comment on above: Performed By: #### L 100.0100, L500.2500 ####[facility] [address] [place], [address] GFR/1.73 sq M.predicted among non-blacks MDRD (S/P/Bld) [Vol rate/Area] 130 mL/min/{1.73_m2} Normal >60 [facility] Comment on above: Result Comment: Non- GFR Calc Performed By: #### L 100.0100, L500.2500 ####[facility] [address] [place], [address] Glucose [Mass/Vol] 299 mg/dL High [address] [place] [address] Comment on above: Result Comment: Gluc ose result greater than or equal to 200 mg/dLsuggests DIABETES MELLITUS per A.D.A. criteria. Performed By: #### L 100.0100, L500.2500 ####[facility] [address] [place], [address] Potassium [Moles/Vol] 3.5 mmol/L Normal 3.5-5.1 [facility] Comment on above: Performed By: #### L 100.0100, L500.2500 ####[facility] [address] [place], [address] Sodium [Moles/Vol] 140 mmol/L Normal 136-145 [facility] Comment on above: Performed By: #### L 100.0100, L500.2500 ####[facility] [address] [place], [address] Bedside Glucoseon 04-29-2024 FINGERSTICK GLU 377 mg/dL High [address] [place] [address] Comment on above: Result Comment: DELLA GEMENT OF PATIENT CARE PER NURSING PROTOCOL Performed By: #### L 501.080 ####[facility] [address] [place], [address] FINGERSTICK GLU 298 mg/dL High [address] [place] [address] Comment on above: Result Comment: DELLA GEMENT OF PATIENT CARE PER NURSING PROTOCOL Performed By: #### L 501.080 ####[facility] [address] [place], [address] FINGERSTICK GLU 261 mg/dL High [address] [place] [address] Comment on above: Result Comment: DELLA GEMENT OF PATIENT CARE PER NURSING PROTOCOL Performed By: #### L 501.080 ####[facility] [address] [place], [address] Bilirubin Test strip Ql (U)O rdered By: Yonas Sadia on 04-29-2024 Bilirubin Ql (U) Negative Negative [facility] Bilirubin, totalOrdered By: Yonas Mccullough on 04-29-2024 Bilirubin [Mass/Vol] 0.30 mg/dL Normal 0.20-1.00 [facility] Comment on above: For patients on eltr ombopag therapy, use of [employer] TBIL is not recommended. Order Comment: 'TROP ' Serial specimen #1, #2 or #3: 1 Result Comment: For patients on eltrombopag therapy, use of [place] TBIL is not recommended. Performed By: #### L 501.4020, L300.4310, L500.4050, M200.1000, L300.3900, L100.0100, L503.6005 ####[facility] [address] [place], [address] Blood basophils/100 leukocyt esOrdered By: Yonas Mccullough on 04-29-2024 Basophils/100 WBC (Bld) 1 % 0-1 [facility] Blood cultureOrdered By: Jovita harry Mccullough on 04-29-2024 Bacteria identified Cx Nom (Bld) No growth in 5 days. [facility] Bacteria identified Cx Nom (Bld) No growth in 5 days. [facility] Brain/Head without Contrasto n 04-29-2024 Brain/Head without Contrast Normal [facility] CBC W/Diff, Automatedon 04-15 PATH REV Reviewed Normal [facility] Comment on above: Result Comment: Neut rophilic leukocytosis with left shift.Normocytic anemia.Clinical correlation necessary.Sheldon Baeza M.D. 04/29/24 AMENDED REPORT 04/29/24 6169 PATH REV previously reported as: Kim guan Performed By: #### L 100.0100, L500.2500 ####[facility] [address] [place], [address] CT Chest, Abd, Pel w/Contras ton 04-29-2024 CT Chest, Abd, Pel w/Contrast Normal [facility] Comprehensive Metabolic Prof ilon 04-29-2024 ALK P 311 U/L High 45-117 [facility] Comment on above: Order Comment: 'TROP ' Serial specimen #1, #2 or #3: 1 Performed By: #### L 501.4020, L300.4310, L500.4050, M200.1000, L300.3900, L100.0100, L503.6005 ####[facility] [address] [place], [address] BUN/CRE 19.5 RATIO Normal 10-20 [facility] Comment on above: Order Comment: 'TROP ' Serial specimen #1, #2 or #3: 1 Performed By: #### L 501.4020, L300.4310, L500.4050, M200.1000, L300.3900, L100.0100, L503.6005 ####[facility] [address] [place], [address] CA,Total 8.4 mg/dL Low 8.5-10.1 [facility] Comment on above: Order Comment: 'TROP ' Serial specimen #1, #2 or #3: 1 Performed By: #### L 501.4020, L300.4310, L500.4050, M200.1000, L300.3900, L100.0100, L503.6005 ####[facility] [address] [place], [address] Chloride [Moles/Vol] 103 mmol/L Normal 98-107 [facility] Comment on above: Order Comment: 'TROP ' Serial specimen #1, #2 or #3: 1 Performed By: #### L 501.4020, L300.4310, L500.4050, M200.1000, L300.3900, L100.0100, L503.6005 ####[facility] [address] [place], [address] Creatinine [Mass/Vol] 0.87 mg/dL Normal 0.55-1.02 [facility] Comment on above: Order Comment: 'TROP ' Serial specimen #1, #2 or #3: 1 Result Comment: The validity of the calculated GFR GFRAA in patients over70 years has not been determined. Clinical correlation isessential. Performed By: #### L 501.4020, L300.4310, L500.4050, M200.1000, L300.3900, L100.0100, L503.6005 ####[facility] [address] [place], [address] ECRCL 81.18 ml/min Normal [facility] Comment on above: Order Comment: 'TROP ' Serial specimen #1, #2 or #3: 1 Performed By: #### L 501.4020, L300.4310, L500.4050, M200.1000, L300.3900, L100.0100, L503.6005 ####[facility] [address] [place], [address] EST GFR - AA 87 mL/min Normal >60 [facility] Comment on above: Order Comment: 'TROP ' Serial specimen #1, #2 or #3: 1 Result Comment: Afri can [place] GFR Calc Performed By: #### L 501.4020, L300.4310, L500.4050, M200.1000, L300.3900, L100.0100, L503.6005 ####[facility] [address] [place], [address] GAP 10 Normal 5-15 [facility] Comment on above: Order Comment: 'TROP ' Serial specimen #1, #2 or #3: 1 Performed By: #### L 501.4020, L300.4310, L500.4050, M200.1000, L300.3900, L100.0100, L503.6005 ####[facility] [address] [place], [address] GFR/1.73 sq M.predicted among non-blacks MDRD (S/P/Bld) [Vol rate/Area] 72 mL/min/{1.73_m2} Normal >60 [facility] Comment on above: Order Comment: 'TROP ' Serial specimen #1, #2 or #3: 1 Result Comment: Non- GFR Calc Performed By: #### L 501.4020, L300.4310, L500.4050, M200.1000, L300.3900, L100.0100, L503.6005 ####[facility] [address] [place], [address] Glucose [Mass/Vol] 400 mg/dL High 74-106 [facility] Comment on above: Order Comment: 'TROP ' Serial specimen #1, #2 or #3: 1 Result Comment: Gluc ose result greater than or equal to 200 mg/dLsuggests DIABETES MELLITUS per A.D.A. criteria. Performed By: #### L 501.4020, L300.4310, L500.4050, M200.1000, L300.3900, L100.0100, L503.6005 ####[facility] [address] [place], [address] Potassium [Moles/Vol] 3.7 mmol/L Normal 3.5-5.1 [facility] Comment on above: Order Comment: 'TROP ' Serial specimen #1, #2 or #3: 1 Performed By: #### L 501.4020, L300.4310, L500.4050, M200.1000, L300.3900, L100.0100, L503.6005 ####[facility] [address] [place], [address] Sodium [Moles/Vol] 138 mmol/L Normal 136-145 [facility] Comment on above: Order Comment: 'TROP ' Serial specimen #1, #2 or #3: 1 Performed By: #### L 501.4020, L300.4310, L500.4050, M200.1000, L300.3900, L100.0100, L503.6005 ####[facility] [address] [place], [address] T PROT 6.5 g/dL Normal 6.4-8.2 [facility] Comment on above: Order Comment: 'TROP ' Serial specimen #1, #2 or #3: 1 Performed By: #### L 501.4020, L300.4310, L500.4050, M200.1000, L300.3900, L100.0100, L503.6005 ####[facility] [address] [place], [address] CO2 [Moles/Vol] 25.0 mmol/L Normal 21.0-32.0 [facility] Comment on above: Order Comment: 'TROP ' Serial specimen #1, #2 or #3: 1 Performed By: #### L 501.4020, L300.4310, L500.4050, M200.1000, L300.3900, L100.0100, L503.6005 ####[facility] [address] [place], [address] Performed By: #### L 100.0100, L500.2500 ####[facility] [address] [place], [address] Urea nitrogen [Mass/Vol] 17 mg/dL Normal 7-18 [facility] Comment on above: Order Comment: 'TROP ' Serial specimen #1, #2 or #3: 1 Performed By: #### L 501.4020, L300.4310, L500.4050, M200.1000, L300.3900, L100.0100, L503.6005 ####[facility] [address] [place], [address] Performed By: #### L 100.0100, L500.2500 ####[facility] [address] [place], [address] Comprehensive Metabolic Prof ilOrdered By: Yonas Mccullough on 04-29-2024 AST [Catalytic activity/Vol] 30 U/L Normal 15-37 [facility] Comment on above: Order Comment: 'TROP ' Serial specimen #1, #2 or #3: 1 Performed By: #### L 501.4020, L300.4310, L500.4050, M200.1000, L300.3900, L100.0100, L503.6005 ####[facility] [address] [place], [address] Discharge Instructionon 04-15 Discharge Instruction Normal [facility] Emergency Department Summary on 04-29-2024 Emergency Department Summary Normal [facility] Femur Min 2 Viewson 04-29-19 25 Femur Min 2 Views Normal [facility] H AND P Exam - Hospitaliston 04-29-2024 H&P Exam - Hospitalist Normal [facility] Influenza virus A and B and SARS-CoV-2 (COVID-19) and Respiratory syncytial virus RNAOrdered By: Yonas Mccullough on 04-29-2024 SARS-CoV-2 (COVID-19) RNA SIRENA+probe Ql (Unsp spec) [facility] International normalized rat io (INR) calculationOrdered By: Yonas Mccullough on 04-29-2024 INR Coag (Bld) [Relative time] 0.9 {INR} [facility] Ketones Test strip Ql (U)Ord ered By: Yonas Mccullough on 04-29-2024 Ketones Ql (U) Negative Negative [facility] Knee 3 Viewson 04-29-2024 Knee 3 Views Normal [facility] L501.4020on 04-29-2024 TROPONIN-I HS 16 pg/mL Normal 3.0-54.0 [facility] Comment on above: Order Comment: 'TROP ' Serial specimen #1, #2 or #3: 1 Result Comment: [place] Note: New Test Units and Gender Specific Reference Ranges. For more information see Policy Stat Procedure [place] High Sensitivity Troponin (TNIH) and attachments. Performed By: #### L 501.4020, L300.4310, L500.4050, M200.1000, L300.3900, L100.0100, L503.6005 ####[facility] [address] [place], [place], [address] Laboratory - Hematology and Cell countsOrdered By: Yonas Mccullough on 04-29-2024 Anisocytosis Ql (Bld) RARE [facility] Lactic Acidon 04-29-2024 Lactate [Moles/Vol] 4.1 mmol/L Invalid Interpretation Code 0.4-1.9 [facility] Comment on above: Order Comment: Comme nts: if result >2, system reflex orders 2nd test @ 4hrsY Result Comment: Crit ical Result(s) Called at: 23:07:45 04/29/2024 by: JENNIFER MARINO. Results read back by same. Performed By: #### L 503.6005, L501.9520 ####[facility] [address] [place], [address] Lactate [Moles/Vol] 4.0 mmol/L Invalid Interpretation Code 0.4-1.9 [facility] Comment on above: Order Comment: Y Result Comment: Crit ical Result(s) Called at: 21:18:30 04/29/2024 by: JENNIFER JAVIER. Results read back by same. Performed By: #### L 501.4020, L300.4310, L500.4050, M200.1000, L300.3900, L100.0100, L503.6005 ####[facility] [address] [place], [address] Lactic acid measurementOrder ed By: Vicente Rossi on 04-29-2024 Lactate [Moles/Vol] 4.1 mmol/L High 0.4-2.0 [facility] Comment on above: Critical Result(s) C alled at: 23:07:45 04/29/2024 by: WILY MARINO. Results read back by same. Legionella Antigen Urineon 0 04-29-2024 LEGU Normal [facility] Comment on above: Performed By: #### M 300.4500 ####[facility] [address] [place], [place], [address] M100.678on 04-29-2024 M100.678 Pending SARS-CoV-2 (COVID 19) Negative INFLUENZA A Negative INFLUENZA B Negative RSV PCR Negative Normal [facility] Comment on above: Performed By: #### M 100.678 ####[facility] [address] [place], [place], [address] Microscopic analysis of urin e for red blood cells (RBC)Ordered By: Yonas Mccullough on 04-29-2024 Microscopic analysis of urine for red blood cells (RBC) 0-5 SEEN /hpf 0-5 [facility] Mucus LM Ql (Urine sed)Order ed By: Yonas Mccullough on 04-29-2024 Mucus Ql (Urine sed) 0 SEEN /hpf [facility] Myelocyte %Ordered By: Yonas Mccullough on 04-29-2024 Myelocytes/100 WBC (Bld) 6 % High 0-0 [facility] Nitrite Test strip Ql (U)Ord ered By: Yonas Mccullough on 04-29-2024 Nitrite Ql (U) Negative Negative [facility] No Panel InformationOrdered By: Vicente Rossi on 04-29-2024 Urine Drug Screen Comment [facility] Comment on above: CONFIRMATORY TESTING FOR [...] on 04-29-2024 Ovalocytes LM Ql (Bld) RARE [facility] Partial Thromboplast Timeon 04-29-2024 aPTT Coag (Bld) [Time] 27.1 s Normal 24.1-36.2 [facility] Comment on above: Performed By: #### L 501.4020, L300.4310, L500.4050, M200.1000, L300.3900, L100.0100, L503.6005 ####[facility] [address] [place], [address] Protein Test strip Ql (U)Ord ered By: Yonas Mccullough on 04-29-2024 Protein Ql (U) 15 mg/dl High Negative [facility] Prothrombin Time w/INRon INR Coag (PPP) [Relative time] 0.9 {INR} Normal [facility] Comment on above: Performed By: #### L 501.4020, L300.4310, L500.4050, M200.1000, L300.3900, L100.0100, L503.6005 ####[facility] [address] [place], [address] PT Coag (PPP) [Time] 12.8 s Normal 11.7-14.9 [facility] Comment on above: Performed By: #### L 501.4020, L300.4310, L500.4050, M200.1000, L300.3900, L100.0100, L503.6005 ####[facility] [address] [place], [address] Prothrombin timeOrdered By: Yonas Mccullough on 04-29-2024 PT Coag (PPP) [Time] 12.8 s 11.7-14.9 [facility] Quantitative urine opiates m easurementOrdered By: Vicente Rossi on 04-29-2024 Opiates Ql (U) Negative < 300 ng/mL [facility] Serum acetone measurementOrd ered By: Vicente Rossi on 04-29-2024 Acetone [Mass/Vol] Negative NEG [facility] Serum globulin measurementOr dered By: Yonas Mccullough on 04-29-2024 Globulin (S) [Mass/Vol] 4.5 g/dL High 2.2-4.2 [facility] Comment on above: Order Comment: 'TROP ' Serial specimen #1, #2 or #3: 1 Performed By: #### L 501.4020, L300.4310, L500.4050, M200.1000, L300.3900, L100.0100, L503.6005 ####[facility] [address] [place], [address] Serum or plasma alanine ortiz otransferase (ALT) measurementOrdered By: Yonas Mccullough on 04-29-2024 ALT [Catalytic activity/Vol] 30 U/L Normal 13-56 [facility] Comment on above: Order Comment: 'TROP ' Serial specimen #1, #2 or #3: 1 Performed By: #### L 501.4020, L300.4310, L500.4050, M200.1000, L300.3900, L100.0100, L503.6005 ####[facility] [address] [place], [address] Serum or plasma albumin anna urement (mass/volume)Ordered By: Yonas Mccullough on 04-29-2024 Albumin [Mass/Vol] 2.0 g/dL Low 3.2-5.0 [facility] Comment on above: Order Comment: 'TROP ' Serial specimen #1, #2 or #3: 1 Performed By: #### L 501.4020, L300.4310, L500.4050, M200.1000, L300.3900, L100.0100, L503.6005 ####[facility] [address] [place], [address] Serum or plasma alkaline zeke sphatase measurementOrdered By: Yonas Mccullough on 04-29-2024 ALP [Catalytic activity/Vol] 311 U/L High 45-117 [facility] Serum or plasma thyroid stim ulating hormone (TSH) measurement (units/volume)Ordered By: Vicente Rossi on 04-29-2024 TSH Qn 1.540 uIU/mL 0.358-3.740 [facility] Spine Cervical without Contr ason 04-29-2024 Spine Cervical without Contras Normal [facility] Squamous epithelial cells de tection in urine sediment by light microscopyOrdered By: Yonas Mccullough on 04-29-2024 Epithelial cells.squamous LM Ql (Urine sed) 5-10 SEEN /hpf 5-10 [facility] Strep pneumoniae Antig(UR,CS F)on 04-29-2024 STPAG Normal [facility] Comment on above: Performed By: #### M 300.4600 ####[facility] [address] [place], [place], [id number] Thyroid Stim Hormone (TSH)on 04-29-2024 TSH 1.540 uIU/mL Normal 0.358-3.740 [facility] Comment on above: Performed By: #### L 503.6005, L501.9520 ####[facility] [address] [place], [place], [id number] Total proteinOrdered By: Jovita Mccullough on 04-29-2024 Protein [Mass/Vol] 6.5 g/dL 6.4-8.2 [facility] Toxic leukocyte granulation detectionOrdered By: Yonas Mccullough on 04-29-2024 Toxic granules LM Ql (Bld) RARE [facility] Troponin IOrdered By: Yonas Mccullough on 04-29-2024 Troponin I 16 pg/mL 3.0-54.0 [facility] Comment on above: Please Note: [place] t Units and Gender Specific Reference Ranges. For more information see Policy Stat Procedure [place] High Sensitivity Troponin (TNIH) and attachments. Urinalysis, Completeon 04-29 AMORPHOUS 1+ URATE Normal [facility] Comment on above: Order Comment: CLEAN CATCH Performed By: #### M 100.2200, L400.0001 ####[facility] [address] [place], [place], [id number] EPI,SQUAMOUS 5-10 SEEN Normal 08-22 [facility] Comment on above: Order Comment: CLEAN CATCH Performed By: #### M 100.2200, L400.0001 ####[facility] [address] [place], [address] RBC 0-5 SEEN Normal 0-5 [facility] Comment on above: Order Comment: CLEAN CATCH Performed By: #### M 100.2200, L400.0001 ####[facility] [address] [place], [address] BACTERIA 0 SEEN Normal None Seen [facility] Comment on above: Order Comment: CLEAN CATCH Performed By: #### M 100.2200, L400.0001 ####[facility] [address] [place], [address] Mucus Ql (Urine sed) 0 SEEN Normal [facility] Comment on above: Order Comment: CLEAN CATCH Performed By: #### M 100.2200, L400.0001 ####[facility] [address] [place], [address] WBC 0 SEEN Normal 0-5 [facility] Comment on above: Order Comment: CLEAN CATCH Performed By: #### M 100.2200, L400.0001 ####[facility] [address] [place], [address] Urine Legionella pneumophila antigen detectionOrdered By: Vicente Rossi on 04-29-2024 L. pneumophila Ag Ql (U) [facility] Urine amphetamine measuremen tOrdered By: Vicente Rossi on 04-29-2024 Amphetamines Ql (U) Negative <1000 ng/mL [facility] Urine benzodiazepine levelOr dered By: Vicente Rossi on 04-29-2024 Benzodiazepines Ql (U) Negative < 200 ng/mL [facility] Urine clarityOrdered By: Jovita Mccullough on 04-29-2024 Clarity (U) Clear Clear [facility] Urine cocaine levelOrdered B y: Vicente Rossi on 04-29-2024 Cocaine Ql (U) Negative < 300 ng/mL [facility] Urine color determinationOrd ered By: Yonas Mccullough on 04-29-2024 Color (U) Yellow Yellow [facility] Urine cultureOrdered By: Jovita Mccullough on 04-29-2024 Bacteria identified Cx Nom (U) Yeast, not Nirmala albicans Abnormal [facility] Urine vleqf-4-qdsnjtbqzhggiw abinol (THC) measurementOrdered By: Vicente Rossi on 04-29-2024 Cannabinoids Screen Ql (U) Negative < 50 ng/mL [facility] Urine glucose detectionOrder ed By: Yonas Mccullough on 04-29-2024 Glucose Ql (U) 1000 mg/dl High Normal [facility] Urine leukocyte esterase det ection by dipstickOrdered By: Yonas Mccullough on 04-29-2024 Leukocyte esterase Test strip Ql (U) Negative Negative [facility] Urine pHOrdered By: Yonas oakley on 04-29-2024 pH (U) 6.5 [pH] 5.0 - 8.0 [facility] Urine phencyclidine (PCP) de tectionOrdered By: Vicente Rossi on 04-29-2024 Phencyclidine Ql (U) Negative < 25 ng/mL [facility] Urine sediment bacteria coun t by microscopy (number/high power field)Ordered By: Yonas Mccullough on 04-29-2024 Bacteria LM.HPF (Urine sed) [#/Area] 0 /[HPF] None Seen [facility] Urine specific gravity measu rementOrdered By: Yonas Mccullough on 04-29-2024 Specific gravity (U) [Rel density] 1.010 1.002-1.030 [facility] Urine urobilinogen measureme ntOrdered By: Yonas Mccullough on 04-29-2024 Urobilinogen Ql (U) Normal mg/dl Normal [facility] Vancomycin, Trough Levelon 0 04-29-2024 VANCO, TROUGH 20.7 ug/mL High 5.0-15.0 [facility] Comment on above: Order Comment: Comme nts: Trough to be drawn 30 mins prior to scheduled [id number] Result Comment: VANC OMYCIN STANDARED DRUG THERAPY TROUGH LEVEL: 5.0 - 15.0 mg/LVANCOMYCIN HIGH INTENSITY THERAPY TROUGH LEVEL: 15.0 - 20.0 mg/LHigh Intensity therapy recommended for serious lifethreatening infections include:- Tvcqtpnsjz-Vflwjxozhpzl-Dqcvmzfgc (Ventilator/Healtcare Associated)-SepsisPLEASE CONTACT PHARMACY SERVICES (#5249) FOR INTERPRETATIONOF RESULTS. Performed By: #### L 501.8820 ####[facility] [address] [place], [address] White blood cell countOrdere d By: Yonas Mccullough on 04-29-2024 White blood cell count 0 SEEN /hpf 0-5 [facility] Basic Metabolic Profile (BMP )on 04-28-2024 BUN/CRE 37.9 RATIO High 10-20 [facility] Comment on above: Performed By: #### L 100.0100, L500.2500 ####[facility] [address] [place], [address] CA,Total 8.0 mg/dL Low 8.5-10.1 [facility] Comment on above: Performed By: #### L 100.0100, L500.2500 ####[facility] [address] [place], [address] Chloride [Moles/Vol] 109 mmol/L High 98-107 [facility] Comment on above: Performed By: #### L 100.0100, L500.2500 ####[facility] [address] [place], [address] CO2 [Moles/Vol] 27.0 mmol/L Normal 21.0-32.0 [facility] Comment on above: Performed By: #### L 100.0100, L500.2500 ####[facility] [address] [place], [address] Creatinine [Mass/Vol] 0.50 mg/dL Low 0.55-1.02 [facility] Comment on above: Result Comment: The validity of the calculated GFR GFRAA in patients over70 years has not been determined. Clinical correlation isessential. Performed By: #### L 100.0100, L500.2500 ####[facility] [address] [place], [address] ECRCL 134.84 ml/min Normal [facility] Comment on above: Performed By: #### L 100.0100, L500.2500 ####[facility] [address] [place], [address] EST GFR - AA 165 mL/min Normal >60 [facility] Comment on above: Result Comment: Afri can [place] GFR Calc Performed By: #### L 100.0100, L500.2500 ####[facility] [address] [place], [address] GAP 2 Low 5-15 [facility] Comment on above: Performed By: #### L 100.0100, L500.2500 ####[facility] [address] [place], [address] GFR/1.73 sq M.predicted among non-blacks MDRD (S/P/Bld) [Vol rate/Area] 137 mL/min/{1.73_m2} Normal >60 [facility] Comment on above: Result Comment: Non- GFR Calc Performed By: #### L 100.0100, L500.2500 ####[facility] [address] [place], [address] Glucose [Mass/Vol] 236 mg/dL High 74-106 [facility] Comment on above: Result Comment: Gluc ose result greater than or equal to 200 mg/dLsuggests DIABETES MELLITUS per A.D.A. criteria. Performed By: #### L 100.0100, L500.2500 ####[facility] [address] [place], [address] Potassium [Moles/Vol] 3.1 mmol/L Low 3.5-5.1 [facility] Comment on above: Performed By: #### L 100.0100, L500.2500 ####[facility] [address] [place], [address] Sodium [Moles/Vol] 138 mmol/L Normal 136-145 [facility] Comment on above: Performed By: #### L 100.0100, L500.2500 ####[facility] [address] [place], [address] Urea nitrogen [Mass/Vol] 19 mg/dL High 7-18 [facility] Comment on above: Performed By: #### L 100.0100, L500.2500 ####[facility] [address] [place], [address] Bedside Glucoseon 04-28-2024 FINGERSTICK GLU 291 mg/dL High 74-106 [facility] Comment on above: Result Comment: DELLA GEMENT OF PATIENT CARE PER NURSING PROTOCOL Performed By: #### L 501.080 ####[facility] [address] [place], [address] FINGERSTICK GLU 229 mg/dL High 74-106 [facility] Comment on above: Result Comment: DELLA GEMENT OF PATIENT CARE PER NURSING PROTOCOL Performed By: #### L 501.080 ####[facility] [address] [place], [address] FINGERSTICK GLU 157 mg/dL High 74-106 [facility] Comment on above: Result Comment: DELLA GEMENT OF PATIENT CARE PER NURSING PROTOCOL Performed By: #### L 501.080 ####[facility] [address] [place], [address] FINGERSTICK GLU 177 mg/dL High 74-106 [facility] Comment on above: Result Comment: DELLA GEMENT OF PATIENT CARE PER NURSING PROTOCOL Performed By: #### L 501.080 ####[facility] [address] [place], [address] CBC W/Diff, Automatedon - PATH REV Reviewed Normal [facility] Comment on above: Result Comment: Leuk ocytosis WITH Neutrophilic left shift.Normocytic anemia.Clinical correlation necessary.Sheldon Baeza M.D. 04/28/24 AMENDED REPORT 04/28/24 1153 PATH REV previously reported as: August Performed By: #### L 100.0100, L500.2500 ####[facility] [address] [place], [address] Basic Metabolic Profile (BMP )on 04-27-2024 BUN/CRE 36.0 RATIO High 10-20 [facility] Comment on above: Performed By: #### L 100.0100, L500.2500 ####[facility] [address] [place], [address] CA,Total 7.9 mg/dL Low 8.5-10.1 [facility] Comment on above: Performed By: #### L 100.0100, L500.2500 ####[facility] [address] [place], [address] Chloride [Moles/Vol] 112 mmol/L High 98-107 [facility] Comment on above: Performed By: #### L 100.0100, L500.2500 ####[facility] [address] [place], [address] CO2 [Moles/Vol] 23.0 mmol/L Normal 21.0-32.0 [facility] Comment on above: Performed By: #### L 100.0100, L500.2500 ####[facility] [address] [place], [address] Creatinine [Mass/Vol] 0.47 mg/dL Low 0.55-1.02 [facility] Comment on above: Result Comment: The validity of the calculated GFR GFRAA in patients over70 years has not been determined. Clinical correlation isessential. Performed By: #### L 100.0100, L500.2500 ####[facility] [address] [place], [address] ECRCL 139.86 ml/min Normal [facility] Comment on above: Performed By: #### L 100.0100, L500.2500 ####[facility] [address] [place], [address] EST GFR - AA 177 mL/min Normal >60 [facility] Comment on above: Result Comment: Afri can [place] GFR Calc Performed By: #### L 100.0100, L500.2500 ####[facility] [address] [place], [address] GAP 4 Low 5-15 [facility] Comment on above: Performed By: #### L 100.0100, L500.2500 ####[facility] [address] [place], [address] GFR/1.73 sq M.predicted among non-blacks MDRD (S/P/Bld) [Vol rate/Area] 146 mL/min/{1.73_m2} Normal >60 [facility] Comment on above: Result Comment: Non- GFR Calc Performed By: #### L 100.0100, L500.2500 ####[facility] [address] [place], [address] Glucose [Mass/Vol] 374 mg/dL High 74-106 [facility] Comment on above: Result Comment: Gluc ose result greater than or equal to 200 mg/dLsuggests DIABETES MELLITUS per A.D.A. criteria. Performed By: #### L 100.0100, L500.2500 ####[facility] [address] [place], [address] Potassium [Moles/Vol] 3.9 mmol/L Normal 3.5-5.1 [facility] Comment on above: Performed By: #### L 100.0100, L500.2500 ####[facility] [address] [place], [address] Sodium [Moles/Vol] 139 mmol/L Normal 136-145 [facility] Comment on above: Performed By: #### L 100.0100, L500.2500 ####[facility] [address] [place], [address] Urea nitrogen [Mass/Vol] 17 mg/dL Normal 7-18 [facility] Comment on above: Performed By: #### L 100.0100, L500.2500 ####[facility] [address] [place], [address] Bedside Glucoseon 04-27-2024 FINGERSTICK GLU 358 mg/dL High 74-106 [facility] Comment on above: Result Comment: DELLA GEMENT OF PATIENT CARE PER NURSING PROTOCOL Performed By: #### L 501.080 ####[facility] [address] [place], [address] FINGERSTICK GLU 429 mg/dL High 74-106 [facility] Comment on above: Result Comment: DELLA GEMENT OF PATIENT CARE PER NURSING PROTOCOL Performed By: #### L 501.080 ####[facility] [address] [place], [address] FINGERSTICK GLU 356 mg/dL High 74-106 [facility] Comment on above: Result Comment: DELLA GEMENT OF PATIENT CARE PER NURSING PROTOCOL Performed By: #### L 501.080 ####[facility] [address] [place], [address] FINGERSTICK GLU 340 mg/dL High 74-106 [facility] Comment on above: Result Comment: DELLA GEMENT OF PATIENT CARE PER NURSING PROTOCOL Performed By: #### L 501.080 ####[facility] [address] [place], [address] CBC W/Diff, Automatedon 01- PATH REV Reviewed Normal [facility] Comment on above: Result Comment: Neut rophilic leukocytosis with left shift.Clinical correlation necessary.Sheldon Baeza M.D. 04/27/24 AMENDED REPORT 04/27/24 1340 PATH REV previously reported as: August foll Performed By: #### L 100.0100, L500.2500 ####[facility] [address] [place], [place], [address] PATH REV Reviewed Normal [facility] Comment on above: Result Comment: Neut rophilic leukocytosis.Normocytic anemia.MILD Thrombocytopenia.Clinical correlation necessary.Sheldon Baeza M.D. 04/27/24 AMENDED REPORT 04/27/24 1334 PATH REV previously reported as: August foll Performed By: #### L 500.2500, L100.0100 ####[facility] [address] [place], [place], [address] PATH REV Reviewed Normal [facility] Comment on above: Result Comment: Neut rophilic leukocytosis.Clinical correlation necessary.Sheldon Baeza M.D. 04/27/24 AMENDED REPORT 04/27/24 0941 PATH REV previously reported as: August foll Performed By: #### L 100.0100, L501.2300, L501.9985 ####[facility] [address] [place], [place], [address] PATH REV Reviewed Normal [facility] Comment on above: Result Comment: Neut rophilic leukocytosis.Clinical correlation necessary.Sheldon Baeza M.D. 04/27/24 AMENDED REPORT 04/27/24 0940 PATH REV previously reported as: August foll Performed By: #### L 500.2500, L501.6900, L100.0100 ####[facility] [address] [place], [place], [id number] Chest 1 View (Portable)on Chest 1 View (Portable) Normal [facility] Vancomycin, Trough Levelon 0 04-27-2024 VANCO, TROUGH 18.3 ug/mL High 5.0-15.0 [facility] Comment on above: Order Comment: 1999 Result Comment: VANC OMYCIN STANDARED DRUG THERAPY TROUGH LEVEL: 5.0 - 15.0 mg/LVANCOMYCIN HIGH INTENSITY THERAPY TROUGH LEVEL: 15.0 - 20.0 mg/LHigh Intensity therapy recommended for serious lifethreatening infections include:- Jiwiwwfqwn-Vhyxebfyvxth-Nzyogydoi (Ventilator/Healtcare Associated)-SepsisPLEASE CONTACT PHARMACY SERVICES (#9320) FOR INTERPRETATIONOF RESULTS. Performed By: #### L 501.8820 ####[facility] [address] [place], [address] Basic Metabolic Profile (BMP )on 04-26-2024 BUN/CRE 35.7 RATIO High 10-20 [facility] Comment on above: Performed By: #### L 500.2500, L100.0100 ####[facility] [address] [place], [address] CA,Total 7.8 mg/dL Low 8.5-10.1 [facility] Comment on above: Performed By: #### L 500.2500, L100.0100 ####[facility] [address] [place], [address] Chloride [Moles/Vol] 114 mmol/L High 98-107 [facility] Comment on above: Performed By: #### L 500.2500, L100.0100 ####[facility] [address] [place], [address] CO2 [Moles/Vol] 23.0 mmol/L Normal 21.0-32.0 [facility] Comment on above: Performed By: #### L 500.2500, L100.0100 ####[facility] [address] [place], [address] Creatinine [Mass/Vol] 0.48 mg/dL Low 0.55-1.02 [facility] Comment on above: Result Comment: The validity of the calculated GFR GFRAA in patients over70 years has not been determined. Clinical correlation isessential. Performed By: #### L 500.2500, L100.0100 ####[facility] [address] [place], [address] ECRCL 136.86 ml/min Normal [facility] Comment on above: Performed By: #### L 500.2500, L100.0100 ####[facility] [address] [place], [address] EST GFR - AA 175 mL/min Normal >60 [facility] Comment on above: Result Comment: Afri can [place] GFR Calc Performed By: #### L 500.2500, L100.0100 ####[facility] [address] [place], [address] GAP 3 Low 5-15 [facility] Comment on above: Performed By: #### L 500.2500, L100.0100 ####[facility] [address] [place], [address] GFR/1.73 sq M.predicted among non-blacks MDRD (S/P/Bld) [Vol rate/Area] 145 mL/min/{1.73_m2} Normal >60 [facility] Comment on above: Result Comment: Non- GFR Calc Performed By: #### L 500.2500, L100.0100 ####[facility] [address] [place], [address] Glucose [Mass/Vol] 71 mg/dL Low 74-106 [facility] Comment on above: Performed By: #### L 500.2500, L100.0100 ####[facility] [address] [place], [address] Potassium [Moles/Vol] 3.0 mmol/L Low 3.5-5.1 [facility] Comment on above: Performed By: #### L 500.2500, L100.0100 ####[facility] [address] [place], [address] Sodium [Moles/Vol] 140 mmol/L Normal 136-145 [facility] Comment on above: Performed By: #### L 500.2500, L100.0100 ####[facility] [address] [place], [address] Urea nitrogen [Mass/Vol] 17 mg/dL Normal 7-18 [facility] Comment on above: Performed By: #### L 500.2500, L100.0100 ####[facility] [address] [place], [address] Bedside Glucoseon 04-26-2024 FINGERSTICK GLU 342 mg/dL High 74-106 [facility] Comment on above: Result Comment: DELLA GEMENT OF PATIENT CARE PER NURSING PROTOCOL Performed By: #### L 501.080 ####[facility] [address] [place], [address] FINGERSTICK GLU 156 mg/dL High 74-106 [facility] Comment on above: Result Comment: DELLA GEMENT OF PATIENT CARE PER NURSING PROTOCOL Performed By: #### L 501.080 ####[facility] [address] [place], [address] FINGERSTICK GLU 164 mg/dL High 74-106 [facility] Comment on above: Result Comment: DELLA GEMENT OF PATIENT CARE PER NURSING PROTOCOL Performed By: #### L 501.080 ####[facility] [address] [place], [address] FINGERSTICK GLU 59 mg/dL Low 74-106 [facility] Comment on above: Result Comment: Dr Nesha mendoza FollowedDimitrinack GivenMANAGEMENT OF PATIENT CARE PER NURSING PROTOCOL Performed By: #### L 501.080 ####[facility] [address] [place], [address] FINGERSTICK GLU 112 mg/dL High 74-106 [facility] Comment on above: Result Comment: DELLA GEMENT OF PATIENT CARE PER NURSING PROTOCOL Performed By: #### L 501.080 ####[facility] [address] [place], [address] FINGERSTICK GLU 58 mg/dL Low 74-106 [facility] Comment on above: Result Comment: DELLA COX OF PATIENT CARE PER NURSING PROTOCOL Performed By: #### L 501.080 ####[facility] [address] [place], [address] CPK Total, Creatine Kinaseon 04-26-2024 CPK TOTAL 80 U/L Normal 26-192 [facility] Comment on above: Order Comment: Comme nts: Add onto previous labs if possibleAdd onto previous labs if possible Performed By: #### L 503.6030, L501.3620, L504.2610, L500.3400, L501.5200 ####[facility] [address] [place], [address] CT Chest, Abd, Pel w/Contras ton 04-26-2024 CT Chest, Abd, Pel w/Contrast Normal [facility] Chest 1 View (Portable)on Chest 1 View (Portable) Normal [facility] Culture, Blood (WB)on 2024 CUB Normal [facility] Comment on above: Performed By: #### M 200.1000, L503.6005, L501.2300 ####[facility] [address] [place], [address] Iron+Iron Binding Capacityon 04-26-2024 Iron [Mass/Vol] 19 ug/dL Low 50-170 [facility] Comment on above: Order Comment: Comme nts: Add onto previous labs if possibleAdd onto previous labs if possible Performed By: #### L 503.6030, L501.3620, L504.2610, L500.3400, L501.5200 ####[facility] [address] [place], [address] IRON SATURATION 11.8 Low 15.0-55.0 [facility] Comment on above: Order Comment: Comme nts: Add onto previous labs if possibleAdd onto previous labs if possible Performed By: #### L 503.6030, L501.3620, L504.2610, L500.3400, L501.5200 ####[facility] [address] [place], [address] TIBC 161 ug/dL Low 250-450 [facility] Comment on above: Order Comment: Comme nts: Add onto previous labs if possibleAdd onto previous labs if possible Performed By: #### L 503.6030, L501.3620, L504.2610, L500.3400, L501.5200 ####[facility] [address] [place], [address] LDHon 04-26-2024 LDH 227 U/L Normal 84-246 [facility] Comment on above: Order Comment: Comme nts: Add onto previous labs if possibleAdd onto previous labs if possible Performed By: #### L 503.6030, L501.3620, L504.2610, L500.3400, L501.5200 ####[facility] [address] [place], [address] Liver Profileon 04-26-2024 Albumin [Mass/Vol] 1.4 g/dL Low 3.2-5.0 [facility] Comment on above: Order Comment: Comme nts: Add onto previous labs if possibleAdd onto previous labs if possible Performed By: #### L 503.6030, L501.3620, L504.2610, L500.3400, L501.5200 ####[facility] [address] [place], [address] ALK P 103 U/L Normal 45-117 [facility] Comment on above: Order Comment: Comme nts: Add onto previous labs if possibleAdd onto previous labs if possible Performed By: #### L 503.6030, L501.3620, L504.2610, L500.3400, L501.5200 ####[facility] [address] [place], [address] ALT [Catalytic activity/Vol] 22 U/L Normal 13-56 [facility] Comment on above: Order Comment: Comme nts: Add onto previous labs if possibleAdd onto previous labs if possible Performed By: #### L 503.6030, L501.3620, L504.2610, L500.3400, L501.5200 ####[facility] [address] [place], [address] AST [Catalytic activity/Vol] 20 U/L Normal 15-37 [facility] Comment on above: Order Comment: Comme nts: Add onto previous labs if possibleAdd onto previous labs if possible Performed By: #### L 503.6030, L501.3620, L504.2610, L500.3400, L501.5200 ####[facility] [address] [place], [address] Bilirubin [Mass/Vol] 0.60 mg/dL Normal 0.20-1.00 [facility] Comment on above: Order Comment: Comme nts: Add onto previous labs if possibleAdd onto previous labs if possible Result Comment: For patients on eltrombopag therapy, use of Dimension [place] TBIL is not recommended. Performed By: #### L 503.6030, L501.3620, L504.2610, L500.3400, L501.5200 ####[facility] [address] [place], [address] Bilirubin.direct [Mass/Vol] 0.32 mg/dL High 0.00-0.30 [facility] Comment on above: Order Comment: Comme nts: Add onto previous labs if possibleAdd onto previous labs if possible Performed By: #### L 503.6030, L501.3620, L504.2610, L500.3400, L501.5200 ####[facility] [address] [place], [address] Globulin (S) [Mass/Vol] 3.1 g/dL Normal 2.2-4.2 [facility] Comment on above: Order Comment: Comme nts: Add onto previous labs if possibleAdd onto previous labs if possible Performed By: #### L 503.6030, L501.3620, L504.2610, L500.3400, L501.5200 ####[facility] [address] [place], [address] T PROT 4.5 g/dL Low 6.4-8.2 [facility] Comment on above: Order Comment: Comme nts: Add onto previous labs if possibleAdd onto previous labs if possible Performed By: #### L 503.6030, L501.3620, L504.2610, L500.3400, L501.5200 ####[facility] [address] [place], [address] Magnesiumon 04-26-2024 Magnesium [Mass/Vol] 1.9 mg/dL Normal 1.6-2.6 [facility] Comment on above: Order Comment: Comme nts: Add onto previous labs if possibleAdd onto previous labs if possible Performed By: #### L 503.6030, L501.3620, L504.2610, L500.3400, L501.5200 ####[facility] [address] [place], [address] T4 Free Directon 04-26-2024 T4 FREE DIRECT 1.08 ng/dL Normal 0.76-1.46 [facility] Comment on above: Order Comment: Comme nts: Add onto previous labs if possibleAdd onto previous labs if possible Performed By: #### L 506.0400, L501.9520 ####[facility] [address] [place], [address] Thyroid Stim Hormone (TSH)on 04-26-2024 TSH 0.703 uIU/mL Normal 0.358-3.740 [facility] Comment on above: Order Comment: Comme nts: Add onto previous labs if possibleAdd onto previous labs if possible Performed By: #### L 506.0400, L501.9520 ####[facility] [address] [place], [address] Basic Metabolic Profile (BMP )on 04-25-2024 BUN/CRE 38.8 RATIO High 10-20 [facility] Comment on above: Performed By: #### L 501.2300, L500.2500 ####[facility] [address] [place], [address] CA,Total 7.3 mg/dL Low 8.5-10.1 [facility] Comment on above: Performed By: #### L 501.2300, L500.2500 ####[facility] [address] [place], [address] Chloride [Moles/Vol] 114 mmol/L High 98-107 [facility] Comment on above: Performed By: #### L 501.2300, L500.2500 ####[facility] [address] [place], [address] CO2 [Moles/Vol] 21.0 mmol/L Normal 21.0-32.0 [facility] Comment on above: Performed By: #### L 501.2300, L500.2500 ####[facility] [address] [place], [address] Creatinine [Mass/Vol] 0.54 mg/dL Low 0.55-1.02 [facility] Comment on above: Result Comment: The validity of the calculated GFR GFRAA in patients over70 years has not been determined. Clinical correlation isessential. Performed By: #### L 501.2300, L500.2500 ####[facility] [address] [place], [address] ECRCL 122.57 ml/min Normal [facility] Comment on above: Performed By: #### L 501.2300, L500.2500 ####[facility] [address] [place], [address] EST GFR - AA 151 mL/min Normal >60 [facility] Comment on above: Result Comment: Afri can [place] GFR Calc Performed By: #### L 501.2300, L500.2500 ####[facility] [address] [place], [address] GAP 5 Normal 5-15 [facility] Comment on above: Performed By: #### L 501.2300, L500.2500 ####[facility] [address] [place], [address] GFR/1.73 sq M.predicted among non-blacks MDRD (S/P/Bld) [Vol rate/Area] 125 mL/min/{1.73_m2} Normal >60 [facility] Comment on above: Result Comment: Non- GFR Calc Performed By: #### L 501.2300, L500.2500 ####[facility] [address] [place], [address] Glucose [Mass/Vol] 237 mg/dL High 74-106 [facility] Comment on above: Result Comment: Gluc ose result greater than or equal to 200 mg/dLsuggests DIABETES MELLITUS per A.D.A. criteria. Performed By: #### L 501.2300, L500.2500 ####[facility] [address] [place], [address] Potassium [Moles/Vol] 3.7 mmol/L Normal 3.5-5.1 [facility] Comment on above: Performed By: #### L 501.2300, L500.2500 ####[facility] [address] [place], [address] Sodium [Moles/Vol] 139 mmol/L Normal 136-145 [facility] Comment on above: Performed By: #### L 501.2300, L500.2500 ####[facility] [address] [place], [address] Urea nitrogen [Mass/Vol] 21 mg/dL High 7-18 [facility] Comment on above: Performed By: #### L 501.2300, L500.2500 ####[facility] [address] [place], [address] BUN/CRE 42.1 RATIO High 10-20 [facility] Comment on above: Performed By: #### L 501.2300, L500.2500, L100.0100, L501.5200 ####[facility] [address] [place], [address] CA,Total 7.8 mg/dL Low 8.5-10.1 [facility] Comment on above: Performed By: #### L 501.2300, L500.2500, L100.0100, L501.5200 ####[facility] [address] [place], [address] Chloride [Moles/Vol] 113 mmol/L High 98-107 [facility] Comment on above: Performed By: #### L 501.2300, L500.2500, L100.0100, L501.5200 ####[facility] [address] [place], [address] CO2 [Moles/Vol] 19.0 mmol/L Low 21.0-32.0 [facility] Comment on above: Performed By: #### L 501.2300, L500.2500, L100.0100, L501.5200 ####[facility] [address] [place], [address] Creatinine [Mass/Vol] 0.50 mg/dL Low 0.55-1.02 [facility] Comment on above: Result Comment: The validity of the calculated GFR GFRAA in patients over70 years has not been determined. Clinical correlation isessential. Performed By: #### L 501.2300, L500.2500, L100.0100, L501.5200 ####[facility] [address] [place], [address] ECRCL 126.70 ml/min Normal [facility] Comment on above: Performed By: #### L 501.2300, L500.2500, L100.0100, L501.5200 ####[facility] [address] [place], [address] EST GFR - AA 166 mL/min Normal >60 [facility] Comment on above: Result Comment: Afri can [place] GFR Calc Performed By: #### L 501.2300, L500.2500, L100.0100, L501.5200 ####[facility] [address] [place], [address] GAP 7 Normal 5-15 [facility] Comment on above: Performed By: #### L 501.2300, L500.2500, L100.0100, L501.5200 ####[facility] [address] [place], [address] GFR/1.73 sq M.predicted among non-blacks MDRD (S/P/Bld) [Vol rate/Area] 137 mL/min/{1.73_m2} Normal >60 [facility] Comment on above: Result Comment: Non- GFR Calc Performed By: #### L 501.2300, L500.2500, L100.0100, L501.5200 ####[facility] [address] [place], [address] Glucose [Mass/Vol] 244 mg/dL High 74-106 [facility] Comment on above: Result Comment: Gluc ose result greater than or equal to 200 mg/dLsuggests DIABETES MELLITUS per A.D.A. criteria. Performed By: #### L 501.2300, L500.2500, L100.0100, L501.5200 ####[facility] [address] [place], [address] Potassium [Moles/Vol] 3.0 mmol/L Low 3.5-5.1 [facility] Comment on above: Performed By: #### L 501.2300, L500.2500, L100.0100, L501.5200 ####[facility] [address] [place], [address] Sodium [Moles/Vol] 138 mmol/L Normal 136-145 [facility] Comment on above: Performed By: #### L 501.2300, L500.2500, L100.0100, L501.5200 ####[facility] [address] [place], [address] Urea nitrogen [Mass/Vol] 21 mg/dL High 7-18 [facility] Comment on above: Performed By: #### L 501.2300, L500.2500, L100.0100, L501.5200 ####[facility] [address] [place], [address] Bedside Glucoseon 04-25-2024 FINGERSTICK GLU 197 mg/dL High 74-106 [facility] Comment on above: Result Comment: DELLA GEMENT OF PATIENT CARE PER NURSING PROTOCOL Performed By: #### L 501.080 ####[facility] [address] [place], [address] FINGERSTICK GLU 227 mg/dL High 74-106 [facility] Comment on above: Result Comment: DELLA GEMENT OF PATIENT CARE PER NURSING PROTOCOL Performed By: #### L 501.080 ####[facility] [address] [place], [address] FINGERSTICK GLU 194 mg/dL High 74-106 [facility] Comment on above: Result Comment: DELLA GEMENT OF PATIENT CARE PER NURSING PROTOCOL Performed By: #### L 501.080 ####[facility] [address] [place], [address] FINGERSTICK GLU 195 mg/dL High 74-106 [facility] Comment on above: Result Comment: DELLA COX OF PATIENT CARE PER NURSING PROTOCOL Performed By: #### L 501.080 ####[facility] [address] [place], [address] Blood Gases by [facility] 025 Base excess Calc (Bld) [Moles/Vol] -9 mmol/L Low -2 to +2 [facility] Comment on above: Performed By: #### L 9000.0800 ####[facility] [address] [place], [address] Blood Gas Type ART Normal [facility] Comment on above: Performed By: #### L 9000.0800 ####[facility] [address] [place], [address] CO2 [Moles/Vol] 17 mmol/L Normal [facility] Comment on above: Performed By: #### L 9000.0800 ####[facility] [address] [place], [address] FI02 21.0 Normal [facility] Comment on above: Performed By: #### L 9000.0800 ####[facility] [address] [place], [address] HCO3 (Bld) [Moles/Vol] 15.9 mmol/L Low 22-26 [facility] Comment on above: Performed By: #### L 9000.0800 ####[facility] [address] [place], [address] Mode Not entered Normal [facility] Comment on above: Performed By: #### L 9000.0800 ####[facility] [address] [place], [address] O2 Delivery Dev Not entered Normal [facility] Comment on above: Performed By: #### L 9000.0800 ####[facility] [address] [place], [address] pCO2 27.5 mmHg Low 35-45 [facility] Comment on above: Performed By: #### L 9000.0800 ####[facility] [address] [place], [address] pH (Bld) 7.37 [pH] Normal 7.35-7.45 [facility] Comment on above: Performed By: #### L 9000.0800 ####[facility] [address] [place], [address] PO2 78 mmHG Normal 75-100 [facility] Comment on above: Performed By: #### L 9000.0800 ####[facility] [address] [place], [address] SITE L Brach Normal [facility] Comment on above: Performed By: #### L 9000.0800 ####[facility] [address] [place], [address] SO2 95 Normal 95-99 [facility] Comment on above: Performed By: #### L 9000.0800 ####[facility] [address] [place], [address] CBC W/Diff, Automatedon 04-15 SMEAR COMMENT SCANNED Normal [facility] Comment on above: Performed By: #### L 501.2300, L500.2500, L100.0100, L501.5200 ####[facility] [address] [place], [address] Chest 1 View (Portable)on Chest 1 View (Portable) Normal [facility] Consultation - Intensiviston 04-25-2024 Consultation - Computer Forensic Examiner Normal [facility] Magnesiumon 04-25-2024 Magnesium [Mass/Vol] 2.1 mg/dL Normal 1.6-2.6 [facility] Comment on above: Performed By: #### L 501.2300, L500.2500, L100.0100, L501.5200 ####[facility] [address] [place], [address] Phosphoruson 04-25-2024 Phosphate [Mass/Vol] 2.5 mg/dL Normal 2.5-4.9 [facility] Comment on above: Performed By: #### L 501.2300, L500.2500 ####[facility] [address] [place], [address] Phosphate [Mass/Vol] 1.2 mg/dL Low 2.5-4.9 [facility] Comment on above: Performed By: #### L 501.2300, L500.2500, L100.0100, L501.5200 ####[facility] [address] [place], [address] Vancomycin, Trough Levelon 0 04-25-2024 VANCO, TROUGH 16.2 ug/mL High 5.0-15.0 [facility] Comment on above: Order Comment: 0730 Result Comment: VANC OMYCIN STANDARED DRUG THERAPY TROUGH LEVEL: 5.0 - 15.0 mg/LVANCOMYCIN HIGH INTENSITY THERAPY TROUGH LEVEL: 15.0 - 20.0 mg/LHigh Intensity therapy recommended for serious lifethreatening infections include:- Oulfbgrppa-Njasnkrmtyyh-Djbkazwqu (Ventilator/Healtcare Associated)-SepsisPLEASE CONTACT PHARMACY SERVICES (#0273) FOR INTERPRETATIONOF RESULTS. Performed By: #### L 501.8820 ####[facility] [address] [place], [address] Albumin, Serumon 04-24-2024 Albumin [Mass/Vol] 1.9 g/dL Low 3.2-5.0 [facility] Comment on above: Performed By: #### L 501.1800, L501.2300, L500.2500 ####[facility] [address] [place], [address] Basic Metabolic Profile (BMP )on 04-24-2024 BUN/CRE 41.2 RATIO High 10-20 [facility] Comment on above: Performed By: #### L 501.1800, L501.2300, L500.2500 ####[facility] [address] [place], [address] CA,Total 8.0 mg/dL Low 8.5-10.1 [facility] Comment on above: Performed By: #### L 501.1800, L501.2300, L500.2500 ####[facility] [address] [place], [address] Chloride [Moles/Vol] 109 mmol/L High 98-107 [facility] Comment on above: Performed By: #### L 501.1800, L501.2300, L500.2500 ####[facility] [address] [place], [address] CO2 [Moles/Vol] 20.0 mmol/L Low 21.0-32.0 [facility] Comment on above: Performed By: #### L 501.1800, L501.2300, L500.2500 ####[facility] [address] [place], [address] Creatinine [Mass/Vol] 0.58 mg/dL Normal 0.55-1.02 [facility] Comment on above: Result Comment: The validity of the calculated GFR GFRAA in patients over70 years has not been determined. Clinical correlation isessential. Performed By: #### L 501.1800, L501.2300, L500.2500 ####[facility] [address] [place], [address] ECRCL 109.23 ml/min Normal [facility] Comment on above: Performed By: #### L 501.1800, L501.2300, L500.2500 ####[facility] [address] [place], [address] EST GFR - AA 139 mL/min Normal >60 [facility] Comment on above: Result Comment: Afri can [place] GFR Calc Performed By: #### L 501.1800, L501.2300, L500.2500 ####[facility] [address] [place], [address] GAP 6 Normal 5-15 [facility] Comment on above: Performed By: #### L 501.1800, L501.2300, L500.2500 ####[facility] [address] [place], [address] GFR/1.73 sq M.predicted among non-blacks MDRD (S/P/Bld) [Vol rate/Area] 115 mL/min/{1.73_m2} Normal >60 [facility] Comment on above: Result Comment: Non- GFR Calc Performed By: #### L 501.1800, L501.2300, L500.2500 ####[facility] [address] [place], [address] Glucose [Mass/Vol] 289 mg/dL High 74-106 [facility] Comment on above: Result Comment: Gluc ose result greater than or equal to 200 mg/dLsuggests DIABETES MELLITUS per A.D.A. criteria. Performed By: #### L 501.1800, L501.2300, L500.2500 ####[facility] [address] [place], [address] Potassium [Moles/Vol] 3.7 mmol/L Normal 3.5-5.1 [facility] Comment on above: Performed By: #### L 501.1800, L501.2300, L500.2500 ####[facility] [address] [place], [address] Sodium [Moles/Vol] 135 mmol/L Low 136-145 [facility] Comment on above: Performed By: #### L 501.1800, L501.2300, L500.2500 ####[facility] [address] [place], [address] Urea nitrogen [Mass/Vol] 24 mg/dL High 7-18 [facility] Comment on above: Performed By: #### L 501.1800, L501.2300, L500.2500 ####[facility] [address] [place], [address] BUN/CRE 38.0 RATIO High 10-20 [facility] Comment on above: Order Comment: Call MD with results STAT Performed By: #### L 500.2500, L501.5200, L500.4050 ####[facility] [address] [place], [address] CA,Total 8.5 mg/dL Normal 8.5-10.1 [facility] Comment on above: Order Comment: Call MD with results STAT Performed By: #### L 500.2500, L501.5200, L500.4050 ####[facility] [address] [place], [address] Chloride [Moles/Vol] 111 mmol/L High 98-107 [facility] Comment on above: Order Comment: Call MD with results STAT Performed By: #### L 500.2500, L501.5200, L500.4050 ####[facility] [address] [place], [address] CO2 [Moles/Vol] 22.0 mmol/L Normal 21.0-32.0 [facility] Comment on above: Order Comment: Call MD with results STAT Performed By: #### L 500.2500, L501.5200, L500.4050 ####[facility] [address] [place], [address] Creatinine [Mass/Vol] 0.68 mg/dL Normal 0.55-1.02 [facility] Comment on above: Order Comment: Call MD with results STAT Result Comment: The validity of the calculated GFR GFRAA in patients over70 years has not been determined. Clinical correlation isessential. Performed By: #### L 500.2500, L501.5200, L500.4050 ####[facility] [address] [place], [address] ECRCL 86.09 ml/min Normal [facility] Comment on above: Order Comment: Call MD with results STAT Performed By: #### L 500.2500, L501.5200, L500.4050 ####[facility] [address] [place], [address] EST GFR - AA 115 mL/min Normal >60 [facility] Comment on above: Order Comment: Call MD with results STAT Result Comment: Afri can [place] GFR Calc Performed By: #### L 500.2500, L501.5200, L500.4050 ####[facility] [address] [place], [address] GAP 5 Normal 5-15 [facility] Comment on above: Order Comment: Call MD with results STAT Performed By: #### L 500.2500, L501.5200, L500.4050 ####[facility] [address] [place], [address] GFR/1.73 sq M.predicted among non-blacks MDRD (S/P/Bld) [Vol rate/Area] 95 mL/min/{1.73_m2} Normal >60 [facility] Comment on above: Order Comment: Call MD with results STAT Result Comment: Non- GFR Calc Performed By: #### L 500.2500, L501.5200, L500.4050 ####[facility] [address] [place], [address] Glucose [Mass/Vol] 263 mg/dL High 74-106 [facility] Comment on above: Order Comment: Call MD with results STAT Result Comment: Gluc ose result greater than or equal to 200 mg/dLsuggests DIABETES MELLITUS per A.D.A. criteria. Performed By: #### L 500.2500, L501.5200, L500.4050 ####[facility] [address] [place], [address] Potassium [Moles/Vol] 3.6 mmol/L Normal 3.5-5.1 [facility] Comment on above: Order Comment: Call MD with results STAT Performed By: #### L 500.2500, L501.5200, L500.4050 ####[facility] [address] [place], [address] Sodium [Moles/Vol] 138 mmol/L Normal 136-145 [facility] Comment on above: Order Comment: Call MD with results STAT Performed By: #### L 500.2500, L501.5200, L500.4050 ####[facility] [address] [place], [address] Urea nitrogen [Mass/Vol] 26 mg/dL High 7-18 [facility] Comment on above: Order Comment: Call MD with results STAT Performed By: #### L 500.2500, L501.5200, L500.4050 ####[facility] [address] [place], [address] BUN/CRE 31.5 RATIO High 10-20 [facility] Comment on above: Order Comment: Call MD with results STAT Performed By: #### L 500.2500 ####[facility] [address] [place], [address] CA,Total 8.1 mg/dL Low 8.5-10.1 [facility] Comment on above: Order Comment: Call MD with results STAT Performed By: #### L 500.2500 ####[facility] [address] [place], [address] Chloride [Moles/Vol] 109 mmol/L High 98-107 [facility] Comment on above: Order Comment: Call MD with results STAT Performed By: #### L 500.2500 ####[facility] [address] [place], [address] CO2 [Moles/Vol] 21.0 mmol/L Normal 21.0-32.0 [facility] Comment on above: Order Comment: Call MD with results STAT Performed By: #### L 500.2500 ####[facility] [address] [place] [id number] Creatinine [Mass/Vol] 0.89 mg/dL Normal 0.55-1.02 [facility] Comment on above: Order Comment: Call MD with results STAT Result Comment: The validity of the calculated GFR GFRAA in patients over70 years has not been determined. Clinical correlation isessential. Performed By: #### L 500.2500 ####[facility] [address] [place] [id number] ECRCL 65.78 ml/min Normal [facility] Comment on above: Order Comment: Call MD with results STAT Performed By: #### L 500.2500 ####[facility] [address] [place], [address] EST GFR - AA 85 mL/min Normal >60 [facility] Comment on above: Order Comment: Call MD with results STAT Result Comment: Afri can [place] GFR Calc Performed By: #### L 500.2500 ####[facility] [address] [place] [id number] GAP 7 Normal 5-15 [facility] Comment on above: Order Comment: Call MD with results STAT Performed By: #### L 500.2500 ####[facility] [address] [place], [address] GFR/1.73 sq M.predicted among non-blacks MDRD (S/P/Bld) [Vol rate/Area] 70 mL/min/{1.73_m2} Normal >60 [facility] Comment on above: Order Comment: Call MD with results STAT Result Comment: Non- GFR Calc Performed By: #### L 500.2500 ####[facility] [address] [place], [address] Glucose [Mass/Vol] 289 mg/dL High 74-106 [facility] Comment on above: Order Comment: Call MD with results STAT Result Comment: Gluc ose result greater than or equal to 200 mg/dLsuggests DIABETES MELLITUS per A.D.A. criteria. Performed By: #### L 500.2500 ####[facility] [address] [place], [address] Potassium [Moles/Vol] 2.9 mmol/L Low 3.5-5.1 [facility] Comment on above: Order Comment: Call MD with results STAT Performed By: #### L 500.2500 ####[facility] [address] [place], [address] Sodium [Moles/Vol] 137 mmol/L Normal 136-145 [facility] Comment on above: Order Comment: Call MD with results STAT Performed By: #### L 500.2500 ####[facility] [address] [place], [address] Urea nitrogen [Mass/Vol] 28 mg/dL High 7-18 [facility] Comment on above: Order Comment: Call MD with results STAT Performed By: #### L 500.2500 ####[facility] [address] [place], [address] Bedside Glucoseon 04-24-2024 FINGERSTICK GLU 286 mg/dL High -106 [facility] Comment on above: Result Comment: DELLA COX OF PATIENT CARE PER NURSING PROTOCOL Performed By: #### L 501.080 ####[facility] [address] [place], [address] FINGERSTICK GLU 321 mg/dL High 74-106 [facility] Comment on above: Result Comment: DELLA GEMENT OF PATIENT CARE PER NURSING PROTOCOL Performed By: #### L 501.080 ####[facility] [address] [place], [address] FINGERSTICK GLU 214 mg/dL High 74-106 [facility] Comment on above: Result Comment: DELLA GEMENT OF PATIENT CARE PER NURSING PROTOCOL Performed By: #### L 501.080 ####[facility] [address] [place], [address] FINGERSTICK GLU 214 mg/dL High 74-106 [facility] Comment on above: Result Comment: DELLA GEMENT OF PATIENT CARE PER NURSING PROTOCOL Performed By: #### L 501.080 ####[facility] [address] [place], [address] FINGERSTICK GLU 205 mg/dL High 74-106 [facility] Comment on above: Result Comment: DELLA GEMENT OF PATIENT CARE PER NURSING PROTOCOL Performed By: #### L 501.080 ####[facility] [address] [place], [address] FINGERSTICK GLU 199 mg/dL High 74-106 [facility] Comment on above: Result Comment: DELLA GEMENT OF PATIENT CARE PER NURSING PROTOCOL Performed By: #### L 501.080 ####[facility] [address] [place], [address] FINGERSTICK GLU 237 mg/dL High 74-106 [facility] Comment on above: Result Comment: DELLA GEMENT OF PATIENT CARE PER NURSING PROTOCOL Performed By: #### L 501.080 ####[facility] [address] [place], [address] FINGERSTICK GLU 227 mg/dL High -106 [facility] Comment on above: Result Comment: DELLA GEMENT OF PATIENT CARE PER NURSING PROTOCOL Performed By: #### L 501.080 ####[facility] [address] [place], [address] FINGERSTICK GLU 246 mg/dL High 74-106 [facility] Comment on above: Result Comment: DELLA GEMENT OF PATIENT CARE PER NURSING PROTOCOL Performed By: #### L 501.080 ####[facility] [address] [place], [address] FINGERSTICK GLU 285 mg/dL High 74-106 [facility] Comment on above: Result Comment: DELLA GEMENT OF PATIENT CARE PER NURSING PROTOCOL Performed By: #### L 501.080 ####[facility] [address] [place], [address] FINGERSTICK GLU 264 mg/dL High -106 [facility] Comment on above: Result Comment: DELLA GEMENT OF PATIENT CARE PER NURSING PROTOCOL Performed By: #### L 501.080 ####[facility] [address] [place], [address] FINGERSTICK GLU 247 mg/dL High [address] [place] [address] Comment on above: Result Comment: DELLA GEMENT OF PATIENT CARE PER NURSING PROTOCOL Performed By: #### L 501.080 ####[facility] [address] [place], [address] CT Chest, Abd, Pel w/Contras ton 04-24-2024 CT Chest, Abd, Pel w/Contrast Normal [facility] Chest 1 View (Portable)on Chest 1 View (Portable) Normal [facility] Chest 1 View (Portable) Normal [facility] Comprehensive Metabolic Prof ilon 04-24-2024 Albumin [Mass/Vol] 1.9 g/dL Low 3.2-5.0 [facility] Comment on above: Order Comment: Call with results STAT Performed By: #### L 500.2500, L501.5200, L500.4050 ####[facility] [address] [place], [address] Albumin/Globulin [Mass ratio] 0.6 {ratio} Low 0.9-2.4 [facility] Comment on above: Order Comment: Call MD with results STAT Performed By: #### L 500.2500, L501.5200, L500.4050 ####[facility] [address] [place], [address] ALK P 108 U/L Normal 45-117 [facility] Comment on above: Order Comment: Call MD with results STAT Performed By: #### L 500.2500, L501.5200, L500.4050 ####[facility] [address] [place], [address] ALT [Catalytic activity/Vol] 36 U/L Normal 13-56 [facility] Comment on above: Order Comment: Call MD with results STAT Performed By: #### L 500.2500, L501.5200, L500.4050 ####[facility] [address] [place], [address] AST [Catalytic activity/Vol] 29 U/L Normal 15-37 [facility] Comment on above: Order Comment: Call MD with results STAT Performed By: #### L 500.2500, L501.5200, L500.4050 ####[facility] [address] [place], [address] Bilirubin [Mass/Vol] 0.50 mg/dL Normal 0.20-1.00 [facility] Comment on above: Order Comment: Call MD with results STAT Result Comment: For patients on eltrombopag therapy, use of Dimension [place] TBIL is not recommended. Performed By: #### L 500.2500, L501.5200, L500.4050 ####[facility] [address] [place], [address] Globulin (S) [Mass/Vol] 3.4 g/dL Normal 2.2-4.2 [facility] Comment on above: Order Comment: Call MD with results STAT Performed By: #### L 500.2500, L501.5200, L500.4050 ####[facility] [address] [place], [address] T PROT 5.3 g/dL Low 6.4-8.2 [facility] Comment on above: Order Comment: Call MD with results STAT Performed By: #### L 500.2500, L501.5200, L500.4050 ####[facility] [address] [place], [address] Echo Completeon 04-24-2024 Echo Complete Normal [facility] Hemoglobin A1con 04-24-2024 HbA1c (Bld) [Mass fraction] 11.7 % High 3.8-5.6 [facility] Comment on above: Result Comment: Norm al < 5.7 % Prediabetic 5.7 - 6.4 % Diabetic >or= 6.5 % Please note range changes. Performed By: #### L 100.0100, L501.2300, L501.9985 ####[facility] [address] [place], [address] M8200.1075on 04-24-2024 M8200.1075 Normal [facility] Comment on above: Performed By: #### M 8200.1075 ####[facility] [address] [place], [address] Magnesiumon 04-24-2024 Magnesium [Mass/Vol] 1.9 mg/dL Normal 1.6-2.6 [facility] Comment on above: Order Comment: Call MD with results STAT Performed By: #### L 500.2500, L501.5200, L500.4050 ####[facility] [address] [place], [address] Phosphoruson 04-24-2024 Phosphate [Mass/Vol] 2.1 mg/dL Low 2.5-4.9 [facility] Comment on above: Performed By: #### L 501.1800, L501.2300, L500.2500 ####[facility] [address] [place], [address] Phosphate [Mass/Vol] 1.0 mg/dL Invalid Interpretation Code 2.5-4.9 [facility] Comment on above: Result Comment: Crit ical Result(s) Called at: 05:13:58 04/24/2024 by: BOZENA to Paulina Santamaria. Results read back by same. Performed By: #### L 100.0100, L501.2300, L501.9985 ####[facility] [address] [place], [address] Procedure Reporton Procedure Report Normal [facility] Renal Profileon 04-24-2024 ALB Normal 3.2-5.0 [facility] Comment on above: Result Comment: DUPL ICATE ORDER. TESTS ADDED TO BMP. Performed By: #### L 500.3600 ####[facility] [address] [place], [address] BUN Normal 7-18 [facility] Comment on above: Result Comment: DUPL ICATE ORDER. TESTS ADDED TO BMP. Performed By: #### L 500.3600 ####[facility] [address] [place], [address] BUN/CRE Normal 10-20 [facility] Comment on above: Result Comment: DUPL ICATE ORDER. TESTS ADDED TO BMP. Performed By: #### L 500.3600 ####[facility] [address] [place], [address] CA,Total Normal 8.5-10.1 [facility] Comment on above: Result Comment: DUPL ICATE ORDER. TESTS ADDED TO BMP. Performed By: #### L 500.3600 ####[facility] [address] [place], [address] CL Normal 98-107 [facility] Comment on above: Result Comment: DUPL ICATE ORDER. TESTS ADDED TO BMP. Performed By: #### L 500.3600 ####[facility] [address] [place], [address] CO2 Normal 21.0-32.0 [facility] Comment on above: Result Comment: DUPL ICATE ORDER. TESTS ADDED TO BMP. Performed By: #### L 500.3600 ####[facility] [address] [place], [address] CREAT,SERUM Normal 0.55-1.02 [facility] Comment on above: Result Comment: DUPL ICATE ORDER. TESTS ADDED TO BMP. Performed By: #### L 500.3600 ####[facility] [address] [place], [address] EST GFR Normal >60 [facility] Comment on above: Result Comment: DUPL ICATE ORDER. TESTS ADDED TO BMP. Performed By: #### L 500.3600 ####[facility] [address] [place], [address] EST GFR - AA Normal >60 [facility] Comment on above: Result Comment: DUPL ICATE ORDER. TESTS ADDED TO BMP. Performed By: #### L 500.3600 ####[facility] [address] [place], [address] GLU Normal 74-106 [facility] Comment on above: Result Comment: DUPL ICATE ORDER. TESTS ADDED TO BMP. Performed By: #### L 500.3600 ####[facility] [address] [place], [address] PHOS Normal 2.5-4.9 [facility] Comment on above: Result Comment: DUPL ICATE ORDER. TESTS ADDED TO BMP. Performed By: #### L 500.3600 ####[facility] [address] [place], [address] Potassium Normal 3.5-5.1 [facility] Comment on above: Result Comment: DUPL ICATE ORDER. TESTS ADDED TO BMP. Performed By: #### L 500.3600 ####[facility] [address] [place], [address] Renal Profile Normal 136-145 [facility] Comment on above: Result Comment: DUPL ICATE ORDER. TESTS ADDED TO BMP. Performed By: #### L 500.3600 ####[facility] [address] [place], [address] 12 Lead EKGon 04-23-2024 12 Lead EKG Normal [facility] Acetone Serumon 04-23-2024 ACETONE SERUM MODERATE Abnormal NEG [facility] Comment on above: Performed By: #### L 500.2500, L501.6900, L100.0100 ####[facility] [address] [place], [address] Basic Metabolic Profile (BMP )on 04-23-2024 BUN/CRE 31.2 RATIO High 10-20 [facility] Comment on above: Order Comment: Call MD with results STAT Performed By: #### L 500.2500 ####[facility] [address] [place], [address] CA,Total 8.3 mg/dL Low 8.5-10.1 [facility] Comment on above: Order Comment: Call MD with results STAT Performed By: #### L 500.2500 ####[facility] [address] [place], [address] Chloride [Moles/Vol] 106 mmol/L Normal 98-107 [facility] Comment on above: Order Comment: Call MD with results STAT Performed By: #### L 500.2500 ####[facility] [address] [place], [address] CO2 [Moles/Vol] 21.0 mmol/L Normal 21.0-32.0 [facility] Comment on above: Order Comment: Call MD with results STAT Performed By: #### L 500.2500 ####[facility] [address] [place], [address] Creatinine [Mass/Vol] 0.93 mg/dL Normal 0.55-1.02 [facility] Comment on above: Order Comment: Call MD with results STAT Result Comment: The validity of the calculated GFR GFRAA in patients over70 years has not been determined. Clinical correlation isessential. Performed By: #### L 500.2500 ####[facility] [address] [place], [address] ECRCL 62.95 ml/min Normal [facility] Comment on above: Order Comment: Call MD with results STAT Performed By: #### L 500.2500 ####[facility] [address] [place], [address] EST GFR - AA 81 mL/min Normal >60 [facility] Comment on above: Order Comment: Call MD with results STAT Result Comment: Afri can [place] GFR Calc Performed By: #### L 500.2500 ####[facility] [address] [place], [address] GAP 8 Normal 5-15 [facility] Comment on above: Order Comment: Call MD with results STAT Performed By: #### L 500.2500 ####[facility] [address] [place], [address] GFR/1.73 sq M.predicted among non-blacks MDRD (S/P/Bld) [Vol rate/Area] 67 mL/min/{1.73_m2} Normal >60 [facility] Comment on above: Order Comment: Call MD with results STAT Result Comment: Non- GFR Calc Performed By: #### L 500.2500 ####[facility] [address] [place], [address] Glucose [Mass/Vol] 267 mg/dL High 74-106 [facility] Comment on above: Order Comment: Call MD with results STAT Result Comment: Gluc ose result greater than or equal to 200 mg/dLsuggests DIABETES MELLITUS per A.D.A. criteria. Performed By: #### L 500.2500 ####[facility] [address] [place], [address] Potassium [Moles/Vol] 3.3 mmol/L Low 3.5-5.1 [facility] Comment on above: Order Comment: Call MD with results STAT Performed By: #### L 500.2500 ####[facility] [address] [place], [address] Sodium [Moles/Vol] 135 mmol/L Low 136-145 [facility] Comment on above: Order Comment: Call MD with results STAT Performed By: #### L 500.2500 ####[facility] [address] [place], [address] Urea nitrogen [Mass/Vol] 29 mg/dL High 7-18 [facility] Comment on above: Order Comment: Call MD with results STAT Performed By: #### L 500.2500 ####[facility] [address] [place], [address] BUN/CRE 29.3 RATIO High 10-20 [facility] Comment on above: Order Comment: Call MD with results STAT Performed By: #### L 500.2500 ####[facility] [address] [place], [address] CA,Total 8.6 mg/dL Normal 8.5-10.1 [facility] Comment on above: Order Comment: Call MD with results STAT Performed By: #### L 500.2500 ####[facility] [address] [place], [address] Chloride [Moles/Vol] 101 mmol/L Normal 98-107 [facility] Comment on above: Order Comment: Call MD with results STAT Performed By: #### L 500.2500 ####[facility] [address] [place], [address] CO2 [Moles/Vol] 18.0 mmol/L Low 21.0-32.0 [facility] Comment on above: Order Comment: Call MD with results STAT Performed By: #### L 500.2500 ####[facility] [address] [place], [address] Creatinine [Mass/Vol] 1.16 mg/dL High 0.55-1.02 [facility] Comment on above: Order Comment: Call MD with results STAT Result Comment: The validity of the calculated GFR GFRAA in patients over70 years has not been determined. Clinical correlation isessential. Performed By: #### L 500.2500 ####[facility] [address] [place], [address] ECRCL 50.47 ml/min Normal [facility] Comment on above: Order Comment: Call MD with results STAT Performed By: #### L 500.2500 ####[facility] [address] [place], [address] EST GFR - AA 63 mL/min Normal >60 [facility] Comment on above: Order Comment: Call MD with results STAT Result Comment: Afri can [place] GFR Calc Performed By: #### L 500.2500 ####[facility] [address] [place], [address] GAP 13 Normal 5-15 [facility] Comment on above: Order Comment: Call MD with results STAT Performed By: #### L 500.2500 ####[facility] [address] [place], [address] GFR/1.73 sq M.predicted among non-blacks MDRD (S/P/Bld) [Vol rate/Area] 52 mL/min/{1.73_m2} Low >60 [facility] Comment on above: Order Comment: Call MD with results STAT Result Comment: Non- GFR Calc Performed By: #### L 500.2500 ####[facility] [address] [place], [address] Glucose [Mass/Vol] 388 mg/dL High 74-106 [facility] Comment on above: Order Comment: Call MD with results STAT Result Comment: Gluc ose result greater than or equal to 200 mg/dLsuggests DIABETES MELLITUS per A.D.A. criteria. Performed By: #### L 500.2500 ####[facility] [address] [place], [address] Potassium [Moles/Vol] 2.8 mmol/L Low 3.5-5.1 [facility] Comment on above: Order Comment: Call MD with results STAT Performed By: #### L 500.2500 ####[facility] [address] [place], [address] Sodium [Moles/Vol] 132 mmol/L Low 136-145 [facility] Comment on above: Order Comment: Call MD with results STAT Performed By: #### L 500.2500 ####[facility] [address] [place], [address] Urea nitrogen [Mass/Vol] 34 mg/dL High 7-18 [facility] Comment on above: Order Comment: Call MD with results STAT Performed By: #### L 500.2500 ####[facility] [address] [place], [address] BUN/CRE 30.4 RATIO High 10-20 [facility] Comment on above: Performed By: #### L 500.2500, L501.6900, L100.0100 ####[facility] [address] [place], [address] CA,Total 9.3 mg/dL Normal 8.5-10.1 [facility] Comment on above: Performed By: #### L 500.2500, L501.6900, L100.0100 ####[facility] [address] [place], [address] Chloride [Moles/Vol] 93 mmol/L Low 98-107 [facility] Comment on above: Performed By: #### L 500.2500, L501.6900, L100.0100 ####[facility] [address] [place], [address] CO2 [Moles/Vol] 16.0 mmol/L Low 21.0-32.0 [facility] Comment on above: Performed By: #### L 500.2500, L501.6900, L100.0100 ####[facility] [address] [place], [address] Creatinine [Mass/Vol] 1.25 mg/dL High 0.55-1.02 [facility] Comment on above: Result Comment: The validity of the calculated GFR GFRAA in patients over70 years has not been determined. Clinical correlation isessential. Performed By: #### L 500.2500, L501.6900, L100.0100 ####[facility] [address] [place], [address] ECRCL 46.84 ml/min Normal [facility] Comment on above: Performed By: #### L 500.2500, L501.6900, L100.0100 ####[facility] [address] [place], [address] EST GFR - AA 58 mL/min Low >60 [facility] Comment on above: Result Comment: Afri can [place] GFR Calc Performed By: #### L 500.2500, L501.6900, L100.0100 ####[facility] [address] [place], [address] GAP 21 High 5-15 [facility] Comment on above: Performed By: #### L 500.2500, L501.6900, L100.0100 ####[facility] [address] [place], [address] GFR/1.73 sq M.predicted among non-blacks MDRD (S/P/Bld) [Vol rate/Area] 48 mL/min/{1.73_m2} Low >60 [facility] Comment on above: Result Comment: Non- GFR Calc Performed By: #### L 500.2500, L501.6900, L100.0100 ####[facility] [address] [place], [address] Glucose [Mass/Vol] 483 mg/dL Invalid Interpretation Code 74-106 [facility] Comment on above: Result Comment: Crit ical Result(s) Called at: 15:35:30 04/23/2024 by: Ary to Jessika Paul. Results read back by same.Glucose result greater than or equal to 200 mg/dLsuggests DIABETES MELLITUS per A.D.A. criteria. Performed By: #### L 500.2500, L501.6900, L100.0100 ####[facility] [address] [place], [address] Potassium [Moles/Vol] 3.4 mmol/L Low 3.5-5.1 [facility] Comment on above: Performed By: #### L 500.2500, L501.6900, L100.0100 ####[facility] [address] [place], [address] Sodium [Moles/Vol] 130 mmol/L Low 136-145 [facility] Comment on above: Performed By: #### L 500.2500, L501.6900, L100.0100 ####[facility] [address] [place], [address] Urea nitrogen [Mass/Vol] 38 mg/dL High 7-18 [facility] Comment on above: Performed By: #### L 500.2500, L501.6900, L100.0100 ####[facility] [address] [place], [address] BUN/CRE 28.0 RATIO High 10-20 [facility] Comment on above: Performed By: #### L 500.2500 ####[facility] [address] [place], [address] CA,Total 9.9 mg/dL Normal 8.5-10.1 [facility] Comment on above: Performed By: #### L 500.2500 ####[facility] [address] [place], [address] Chloride [Moles/Vol] 91 mmol/L Low 98-107 [facility] Comment on above: Performed By: #### L 500.2500 ####[facility] [address] [place], [address] CO2 [Moles/Vol] 14.0 mmol/L Low 21.0-32.0 [facility] Comment on above: Performed By: #### L 500.2500 ####[facility] [address] [place], [address] Creatinine [Mass/Vol] 1.43 mg/dL High 0.55-1.02 [facility] Comment on above: Result Comment: The validity of the calculated GFR GFRAA in patients over70 years has not been determined. Clinical correlation isessential. Performed By: #### L 500.2500 ####[facility] [address] [place], [address] ECRCL 40.94 ml/min Normal [facility] Comment on above: Performed By: #### L 500.2500 ####[facility] [address] [place], [address] EST GFR - AA 49 mL/min Low >60 [facility] Comment on above: Result Comment: Afri can [place] GFR Calc Performed By: #### L 500.2500 ####[facility] [address] [place], [address] GAP 21 High 5-15 [facility] Comment on above: Performed By: #### L 500.2500 ####[facility] [address] [place], [address] GFR/1.73 sq M.predicted among non-blacks MDRD (S/P/Bld) [Vol rate/Area] 41 mL/min/{1.73_m2} Low >60 [facility] Comment on above: Result Comment: Non- GFR Calc Performed By: #### L 500.2500 ####[facility] [address] [place], [address] Glucose [Mass/Vol] 475 mg/dL Invalid Interpretation Code 74-106 [facility] Comment on above: Result Comment: Crit ical Result(s) Called at: 13:30:41 04/23/2024 by:Daiana Rogers. Results read back by same.Glucose result greater than or equal to 200 mg/dLsuggests DIABETES MELLITUS per A.D.A. criteria. Performed By: #### L 500.2500 ####[facility] [address] [place], [address] Potassium [Moles/Vol] 3.1 mmol/L Low 3.5-5.1 [facility] Comment on above: Performed By: #### L 500.2500 ####[facility] [address] [place], [address] Sodium [Moles/Vol] 127 mmol/L Low 136-145 [facility] Comment on above: Performed By: #### L 500.2500 ####[facility] [address] [place], [address] Urea nitrogen [Mass/Vol] 40 mg/dL High 7-18 [facility] Comment on above: Performed By: #### L 500.2500 ####[facility] [address] [place], [address] Bedside Glucoseon 04-23-2024 FINGERSTICK GLU 233 mg/dL High 74-106 [facility] Comment on above: Result Comment: DELLA COX OF PATIENT CARE PER NURSING PROTOCOL Performed By: #### L 501.080 ####[facility] [address] [place], [address] FINGERSTICK GLU 231 mg/dL High 74-106 [facility] Comment on above: Result Comment: DELLA GEMENT OF PATIENT CARE PER NURSING PROTOCOL Performed By: #### L 501.080 ####[facility] [address] [place], [address] FINGERSTICK GLU 272 mg/dL High 74-106 [facility] Comment on above: Result Comment: DELLA GEMENT OF PATIENT CARE PER NURSING PROTOCOL Performed By: #### L 501.080 ####[facility] [address] [place], [address] FINGERSTICK GLU 274 mg/dL High 74-106 [facility] Comment on above: Result Comment: DELLA GEMENT OF PATIENT CARE PER NURSING PROTOCOL Performed By: #### L 501.080 ####[facility] [address] [place], [address] FINGERSTICK GLU 282 mg/dL High [facility]106 [facility] Comment on above: Result Comment: DELLA GEMENT OF PATIENT CARE PER NURSING PROTOCOL Performed By: #### L 501.080 ####[facility] [address] [place], [address] FINGERSTICK GLU 338 mg/dL High [address] [place] [address] Comment on above: Result Comment: DELLA GEMENT OF PATIENT CARE PER NURSING PROTOCOL Performed By: #### L 501.080 ####[facility] [address] [place], [address] Blood Gases by [facility] 025 Base excess Calc (Bld) [Moles/Vol] -12 mmol/L Low -2 to +2 [facility] Comment on above: Performed By: #### L 9000.0800 ####[facility] [address] [place], [address] Blood Gas Type ART Normal [facility] Comment on above: Performed By: #### L 9000.0800 ####[facility] [address] [place], [address] CO2 [Moles/Vol] 14 mmol/L Normal [facility] Comment on above: Performed By: #### L 9000.0800 ####[facility] [address] [place], [address] HCO3 (Bld) [Moles/Vol] 13.5 mmol/L Low 22-26 [facility] Comment on above: Performed By: #### L 9000.0800 ####[facility] [address] [place], [address] Mode Not entered Normal [facility] Comment on above: Performed By: #### L 9000.0800 ####[facility] [address] [place], [address] O2 Delivery Dev Not entered [facility] Comment on above: Performed By: #### L 9000.0800 ####[facility] [address] [place], [address] pCO2 24.3 mmHg Low 35-45 [facility] Comment on above: Performed By: #### L 9000.0800 ####[facility] [address] [place], [address] pH (Bld) 7.35 [pH] Normal 7.35-7.45 [facility] Comment on above: Performed By: #### L 9000.0800 ####[facility] [address] [place], [address] PO2 74 mmHG Low 75-100 [facility] Comment on above: Performed By: #### L 9000.0800 ####[facility] [address] [place], [address] SITE L Brach Normal [facility] Comment on above: Performed By: #### L 9000.0800 ####[facility] [address] [place], [address] SO2 94 Low 95-99 [facility] Comment on above: Performed By: #### L 9000.0800 ####[facility] [address] [place], [address] Chest 1 View (Portable)on Chest 1 View (Portable) Normal [facility] Chest 1 View (Portable) Normal [facility] Emergency Department Summary on 04-23-2024 Emergency Department Summary Normal [facility] H AND P Exam - Hospitaliston 04-23-2024 H&P Exam - Hospitalist Normal [facility] Lactic Acidon 04-23-2024 Lactate [Moles/Vol] 1.7 mmol/L Normal 0.4-1.9 [facility] Comment on above: Performed By: #### L 503.6002 ####[facility] [address] [place], [address] Lactate [Moles/Vol] 2.8 mmol/L Invalid Interpretation Code 0.4-1.9 [facility] Comment on above: Order Comment: Y Result Comment: .Cri tical Result(s) Called at: 15:36:45 04/23/2024 by:Irma Mireles to Jessika Paul. Results read back by same. Performed By: #### M 200.1000, L503.6005, L501.2300 ####[facility] [address] [place], [address] Legionella Antigen Urineon 0 04-23-2024 LEGU Normal [facility] Comment on above: Performed By: #### M 300.4600, M300.4500 ####[facility] [address] [place], [address] Liver Profileon 01-09-2025 Albumin [Mass/Vol] 2.6 g/dL Low 3.2-5.0 [facility] Comment on above: Performed By: #### L 500.3400, L501.5200 ####[facility] [address] [place], [address] ALK P 153 U/L High 45-117 [facility] Comment on above: Performed By: #### L 500.3400, L501.5200 ####[facility] [address] [place], [address] ALT [Catalytic activity/Vol] 52 U/L Normal 13-56 [facility] Comment on above: Performed By: #### L 500.3400, L501.5200 ####[facility] [address] [place], [address] AST [Catalytic activity/Vol] 29 U/L Normal 15-37 [facility] Comment on above: Performed By: #### L 500.3400, L501.5200 ####[facility] [address] [place], [address] Bilirubin [Mass/Vol] 0.80 mg/dL Normal 0.20-1.00 [facility] Comment on above: Result Comment: For patients on eltrombopag therapy, use of Dimension [place] TBIL is not recommended. Performed By: #### L 500.3400, L501.5200 ####[facility] [address] [place], [address] Bilirubin.direct [Mass/Vol] 0.43 mg/dL High 0.00-0.30 [facility] Comment on above: Performed By: #### L 500.3400, L501.5200 ####[facility] [address] [place], [address] Globulin (S) [Mass/Vol] 3.4 g/dL Normal 2.2-4.2 [facility] Comment on above: Performed By: #### L 500.3400, L501.5200 ####[facility] [address] [place], [address] T PROT 6.0 g/dL Low 6.4-8.2 [facility] Comment on above: Performed By: #### L 500.3400, L501.5200 ####[facility] [address] [place], [address] Magnesiumon 04-23-2024 Magnesium [Mass/Vol] 2.1 mg/dL Normal 1.6-2.6 [facility] Comment on above: Performed By: #### L 500.3400, L501.5200 ####[facility] [address] [place], [address] Phosphoruson 04-23-2024 Phosphate [Mass/Vol] 2.1 mg/dL Low 2.5-4.9 [facility] Comment on above: Performed By: #### M 200.1000, L503.6005, L501.2300 ####[facility] [address] [place], [address] Procalcitoninon 04-23-2024 Procalcitonin 28.73 ng/mL High 0.00-0.09 [facility] Comment on above: Result Comment: A [...] are obtained. Performed By: #### L 509.7000 ####[facility] [address] [place], [address] RESPIRATORY PANEL MOLECULARo n 04-23-2024 RP PANEL Normal [facility] Comment on above: Performed By: #### M 100.638 ####[facility] [address] [place], [address] Strep pneumoniae Antig(UR,CS F)on 04-23-2024 STPAG Normal [facility] Comment on above: Performed By: #### M 300.4600, M300.4500 ####[facility] [address] [place], [address] Urinalysis, Completeon 04-23 EPI,SQUAMOUS 0-5 SEEN Normal 5-10 [facility] Comment on above: Order Comment: OMAR TER SPECIMEN Performed By: #### L 400.0001 ####[facility] [address] [place], [address] WBC 0-5 SEEN Normal 0-5 [facility] Comment on above: Order Comment: OMAR TER SPECIMEN Performed By: #### L 400.0001 ####[facility] [address] [place], [address] BACTERIA 0 SEEN Normal None Seen [facility] Comment on above: Order Comment: OMAR TER SPECIMEN Performed By: #### L 400.0001 ####[facility] [address] [place], [address] Mucus Ql (Urine sed) 0 SEEN Normal [facility] Comment on above: Order Comment: OMAR TER SPECIMEN Performed By: #### L 400.0001 ####[facility] [address] [place], [address] RBC 0 SEEN Normal 0-5 [facility] Comment on above: Order Comment: OMAR TER SPECIMEN Performed By: #### L 400.0001 ####[facility] [address] [place] [address] Urine Drug Screen (VISTA)on 04-23-2024 AMPHETAMINES Negative Normal <1000 ng/mL [facility] Comment on above: Performed By: #### L 505.5000 ####[facility] [address] [place] [address] BARBITIURATES Negative Normal < 200 ng/mL [facility] Comment on above: Performed By: #### L 505.5000 ####[facility] [address] [place] [address] BENZODIAZIPINE Negative Normal < 200 ng/mL [facility] Comment on above: Performed By: #### L 505.5000 ####[facility] [address] [place] [address] COCAINE Negative Normal < 300 ng/mL [facility] Comment on above: Performed By: #### L 505.5000 ####[facility] [address] [place] [address] ECSTACY Negative Normal < 500 ng/mL [facility] Comment on above: Performed By: #### L 505.5000 ####[facility] [address] [place] [address] METHADONE Negative Normal < 300 ng/mL [facility] Comment on above: Performed By: #### L 505.5000 ####[facility] [address] [place] [address] OPIATES Negative Normal < 300 ng/mL [facility] Comment on above: Performed By: #### L 505.5000 ####[facility] [address] [place] [address] PCP Negative Normal < 25 ng/mL [facility] Comment on above: Performed By: #### L 505.5000 ####[facility] [address] [place], [address] THC Negative Normal < 50 ng/mL [facility] Comment on above: Performed By: #### L 505.5000 ####[facility] [address] [place], [address] VISTA UDS PH 5 Normal [facility] Comment on above: Performed By: #### L 505.5000 ####[facility] [address] [place], [address] Cult,Urineon 04-11-2024 Cult,Urine Specimen Description .CLEAN CATCH URINE Special Requests Site: Urine Culture MIXED GRAM POSITIVE ORGANISMS 1,000 TO 10,000 CFU/ML Report Status FINAL 04/11/2024 Normal [facility] Comment on above: Performed By: #### P HVBG, LACTIC, PER, LIP, MG, CBC, CP #### [facility] [place] [address] House Calls Nurse Practitioner: Yaritza Infante MD #### BH #### [address] [id number] House Calls Nurse Practitioner: Rodríguez Suarez MD Beta Hydroxybutyrateon 04-106 Beta Hydroxybutyrate 0.07 mmol/L Normal 0.02-0.27 [facility] Comment on above: Performed By: #### P HVBG, LACTIC, PER, LIP, MG, CBC, CP #### [facility] [place] [address] House Calls Nurse Practitioner: Yaritza Infante MD #### BH #### [address] [id number] House Calls Nurse Practitioner: Rodríguez Suarez MD Beta-Hydroxybutyrateon 04-108 Beta hydroxybutyrate [Mass/Vol] 0.07 mmol/L 0.02 - 0.27 mmol/L [facility] CBC with Auto Differentialon 04-10-2024 Basophils (Bld) [#/Vol] 0.03 10*3/uL [facility] Basophils/100 WBC (Bld) 1 % 0.0 - 2.0 % [facility] Eosinophils (Bld) [#/Vol] 0.15 10*3/uL [facility] Eosinophils/100 WBC (Bld) 4 % 0 - 6 % [facility] Erythrocyte distribution width (RBC) [Ratio] 13.1 % 11.5 - 15.0 % [facility] Hematocrit (Bld) [Volume fraction] 41.0 % 34.0 - 48.0 % [facility] Hemoglobin (Bld) [Mass/Vol] 13.6 g/dL 11.5 - 15.5 g/dL [facility] Immature granulocytes (Bld) [#/Vol] 0.07 10*3/uL [facility] Immature granulocytes/100 WBC (Bld) 2 % 0.0 - 5.0 % [facility] Interpretation and review of laboratory results Abnormal [facility] Lymphocytes/100 WBC (Bld) 31 % 20.0 - 42.0 % [facility] Lymphocytes/100 WBC (Bld) 1.21 % Low [facility] MCH (RBC) [Entitic mass] 28.1 pg 26.0 - 35.0 pg [facility] MCHC (RBC) [Mass/Vol] 33.2 g/dL 32.0 - 34.5 g/dL [facility] MCV (RBC) [Entitic vol] 84.7 fL 80.0 - 99.9 fL [facility] Monocytes/100 WBC (Bld) 12 % 2.0 - 12.0 % [facility] Monocytes/100 WBC (Bld) 0.46 % [facility] Neutrophils/100 WBC (Bld) 51 % 43.0 - 80.0 % [facility] Platelet mean volume (Bld) [Entitic vol] 10.5 fL 7.0 - 12.0 fL [facility] Platelets (Bld) [#/Vol] 182 10*3/uL [facility] RBC (Bld) [#/Vol] 4.84 10*6/uL 3.50 - 5.5 0 m/uL [facility] Segmented neutrophils/100 WBC (Bld) 2.00 % [facility] WBC other (Bld) [#/Vol] 3.9 Low [facility] CBC with Diffon 04-10-2024 Abs. Basophil 0.03 k/uL Normal 0.00-0.20 [facility] Comment on above: Performed By: #### P HVBG, LACTIC, PER, LIP, MG, CBC, CP #### [facility] [address] [place] [address] House Calls Nurse Practitioner: Yaritza Infante MD #### #### [place] [address] House Calls Nurse Practitioner: Rodríguez Suarez MD Abs.Imm.Granulocyte 0.07 k/uL Normal 0.00-0.58 [facility] Comment on above: Performed By: #### P HVBG, LACTIC, PER, LIP, MG, CBC, CP #### [facility] [address] [place] [address] House Calls Nurse Practitioner: Yaritza Infante MD #### BH #### [place] [address] House Calls Nurse Practitioner: Rodríguez Suarez MD Abs.Neutrophil (Seg) 2.00 k/uL Normal 1.80-7.30 [facility] Comment on above: Performed By: #### P HVBG, LACTIC, PER, LIP, MG, CBC, CP #### [facility] [address] [place], [place] [id number] ( House Calls Nurse Practitioner: Yaritza Infante MD #### BH #### [address] [address] House Calls Nurse Practitioner: Rodríguez Suarez MD Basophils/100 WBC (Bld) 1 % Normal 0.0-2.0 [facility] Comment on above: Performed By: #### P HVBG, LACTIC, PER, LIP, MG, CBC, CP #### [facility] [place] [address] House Calls Nurse Practitioner: Yaritza Infante MD #### BH #### [place] [address] House Calls Nurse Practitioner: Rodríguez Suarez MD Eosinophils (Bld) [#/Vol] 0.15 10*3/uL Normal 0.05-0.50 [facility] Comment on above: Performed By: #### P HVBG, LACTIC, PER, LIP, MG, CBC, CP #### [facility] [place] [address] House Calls Nurse Practitioner: Yaritza Infante MD #### BH #### [place] [address] House Calls Nurse Practitioner: Rodríguez Suarez MD Eosinophils/100 WBC (Bld) 4 % Normal 0-6 [facility] Comment on above: Performed By: #### P HVBG, LACTIC, PER, LIP, MG, CBC, CP #### [facility] [place] [address] House Calls Nurse Practitioner: Yaritza Infante MD #### BH #### [place] [address] House Calls Nurse Practitioner: Rodríguez Suarez MD Erythrocyte distribution width (RBC) [Ratio] 13.1 % Normal 11.5-15.0 [facility] Comment on above: Performed By: #### P HVBG, LACTIC, PER, LIP, MG, CBC, CP #### [facility] [address] [place] [address] House Calls Nurse Practitioner: Yaritza Infante MD #### BH #### [place] [address] House Calls Nurse Practitioner: Rodríguez Suarez MD Hematocrit (Bld) [Volume fraction] 41.0 % Normal 34.0-48.0 [facility] Comment on above: Performed By: #### P HVBG, LACTIC, PER, LIP, MG, CBC, CP #### [facility] [address] [place] [address] House Calls Nurse Practitioner: Yaritza Infante MD #### BH #### [place] [address] House Calls Nurse Practitioner: Rodríguez Suarez MD Hemoglobin (Bld) [Mass/Vol] 13.6 g/dL Normal 11.5-15.5 [facility] Comment on above: Performed By: #### P HVBG, LACTIC, PER, LIP, MG, CBC, CP #### [facility] [address] [place] [address] House Calls Nurse Practitioner: Yaritza Infante MD #### BH #### [place] [address] House Calls Nurse Practitioner: Rodríguez Suarez MD Immature granulocytes/100 WBC (Bld) 2 % Normal 0.0-5.0 [facility] Comment on above: Performed By: #### P HVBG, LACTIC, PER, LIP, MG, CBC, CP #### [facility] [address] [place] [address] House Calls Nurse Practitioner: Yaritza Infante MD #### BH #### [place] [address] House Calls Nurse Practitioner: Rodríguez Suarez MD Lymphocytes (Bld) [#/Vol] 1.21 10*3/uL Low 1.50-4.00 [facility] Comment on above: Performed By: #### P HVBG, LACTIC, PER, LIP, MG, CBC, CP #### [facility] [address] [place] [address] House Calls Nurse Practitioner: Yaritza Infante MD #### BH #### [place] [address] House Calls Nurse Practitioner: Rodríguez Suarez MD Lymphocytes/100 WBC (Bld) 31 % Normal 20.0-42.0 [facility] Comment on above: Performed By: #### P HVBG, LACTIC, PER, LIP, MG, CBC, CP #### [facility] [place] [address] House Calls Nurse Practitioner: Yaritza Infante MD #### BH #### [place] [address] House Calls Nurse Practitioner: Rodríguez Suarez MD MCH (RBC) [Entitic mass] 28.1 pg Normal 26.0-35.0 [facility] Comment on above: Performed By: #### P HVBG, LACTIC, PER, LIP, MG, CBC, CP #### [facility] [place] [address] House Calls Nurse Practitioner: Yaritza Infante MD #### BH #### [place] [id number] House Calls Nurse Practitioner: Rodríguez Suarez MD MCHC (RBC) [Mass/Vol] 33.2 g/dL Normal 32.0-34.5 [facility] Comment on above: Performed By: #### P HVBG, LACTIC, PER, LIP, MG, CBC, CP #### [facility] [address] [place] [address] House Calls Nurse Practitioner: Yaritza Infante MD #### BH #### [place] [address] House Calls Nurse Practitioner: Rodríguez Suarez MD MCV (RBC) [Entitic vol] 84.7 fL Normal 80.0-99.9 [facility] Comment on above: Performed By: #### P HVBG, LACTIC, PER, LIP, MG, CBC, CP #### [facility] [address] [place] [address] House Calls Nurse Practitioner: Yaritza Infante MD #### BH #### [place] [address] House Calls Nurse Practitioner: Rodríguez Suarez MD Monocytes (Bld) [#/Vol] 0.46 10*3/uL Normal 0.10-0.95 [facility] Comment on above: Performed By: #### P HVBG, LACTIC, PER, LIP, MG, CBC, CP #### [facility] [address] [place] [address] House Calls Nurse Practitioner: Yaritza Infante MD #### BH #### [place] [address] House Calls Nurse Practitioner: Rodríguez Suarez MD Monocytes/100 WBC (Bld) 12 % Normal 2.0-12.0 [facility] Comment on above: Performed By: #### P HVBG, LACTIC, PER, LIP, MG, CBC, CP #### [facility] [address] [place] [address] House Calls Nurse Practitioner: Yaritza Infante MD #### BH #### [place] [address] House Calls Nurse Practitioner: Rodríguez Suarez MD Neutrophil (Seg) 51 % Normal 43.0-80.0 [facility] Comment on above: Performed By: #### P HVBG, LACTIC, PER, LIP, MG, CBC, CP #### [facility] [address] [place] [address] House Calls Nurse Practitioner: Yaritza Infante MD #### BH #### [place] [address] House Calls Nurse Practitioner: Rodríguez Suarez MD Platelet mean volume (Bld) [Entitic vol] 10.5 fL Normal 7.0-12.0 [facility] Comment on above: Performed By: #### P HVBG, LACTIC, PER, LIP, MG, CBC, CP #### [facility] [address] [place] [address] House Calls Nurse Practitioner: Yaritza Infante MD #### BH #### [place] [address] House Calls Nurse Practitioner: Rodríguez Suarez MD Platelets (Bld) [#/Vol] 182 10*3/uL Normal 130-450 [facility] Comment on above: Performed By: #### P HVBG, LACTIC, PER, LIP, MG, CBC, CP #### [facility] [address] [place] [address] House Calls Nurse Practitioner: Yaritza Infante MD #### BH #### [place] [address] House Calls Nurse Practitioner: Rodríguez Suarez MD RBC (Bld) [#/Vol] 4.84 10*6/uL Normal 3.50-5.50 [facility] Comment on above: Performed By: #### P HVBG, LACTIC, PER, LIP, MG, CBC, CP #### [facility] [place] [address] House Calls Nurse Practitioner: Yaritza Infante MD #### #### [address] [id number] House Calls Nurse Practitioner: Rodríguez Suarez MD WBC (Bld) [#/Vol] 3.9 10*3/uL Low 4.5-11.5 [facility] Comment on above: Performed By: #### P HVBG, LACTIC, PER, LIP, MG, CBC, CP #### [facility] [place] [address] House Calls Nurse Practitioner: Yaritza Infante MD #### #### [place] [address] House Calls Nurse Practitioner: Rodríguez Suarez MD [facility] 04-10-2024 Albumin [Mass/Vol] 4.0 g/dL 3.5 - 5.2 g/dL [facility] ALP [Catalytic activity/Vol] 194 U/L High 35 - 104 U/L [facility] ALT [Catalytic activity/Vol] 140 U/L High 0 - 32 U/L [facility] Anion gap [Moles/Vol] 14 mmol/L 7 - 16 mmol/L [facility] AST [Catalytic activity/Vol] 76 U/L High 0 - 31 U/L [facility] Bilirubin [Mass/Vol] 0.3 mg/dL 0.0 - 1 .2 mg/dL [facility] Calcium [Mass/Vol] 10.2 mg/dL 8.6 - 10. 2 mg/dL [facility] Chloride [Moles/Vol] 100 mmol/L 98 - 10 7 mmol/L [facility] CO2 [Moles/Vol] 26 mmol/L 22 - 29 mmol/L [facility] Creatinine [Mass/Vol] 0.6 mg/dL 0.50 - 1.00 mg/dL [facility] Funmialyo Murphy Rate - PINF [facility] Comment on above: These results are [...] 408 mg/dL High 74 - 99 mg/dL [facility] Potassium [Moles/Vol] 4.1 mmol/L 3.5 - 5.0 mmol/L [facility] Protein [Mass/Vol] 6.6 g/dL 6.4 - 8.3 g/dL [facility] Sodium [Moles/Vol] 140 mmol/L 132 - 146 mmol/L [facility] Urea nitrogen [Mass/Vol] 21 mg/dL High 6 - 20 mg/dL [facility] Comp Metabolic Profon 2023 Albumin [Mass/Vol] 4.0 g/dL Normal 3.5-5.2 [facility] Comment on above: Performed By: #### P HVBG, LACTIC, PER, LIP, MG, CBC, CP #### [facility] [address] [place] [address] House Calls Nurse Practitioner: Yaritza Infante MD #### BH #### [facility] [address] [place] [address] House Calls Nurse Practitioner: Rodríguez Suarez MD Alkaline Phos 194 U/L High 35-104 [facility] Comment on above: Performed By: #### P HVBG, LACTIC, PER, LIP, MG, CBC, CP #### [facility] [facility] [address] [place] [address] House Calls Nurse Practitioner: Yaritza Infante MD #### BH #### [address] [address] House Calls Nurse Practitioner: Rodríguez Suarez MD ALT [Catalytic activity/Vol] 140 U/L High 0-32 [facility] Comment on above: Performed By: #### P HVBG, LACTIC, PER, LIP, MG, CBC, CP #### [facility] [place] [address] House Calls Nurse Practitioner: Yaritza Infante MD #### BH #### [address] [address] House Calls Nurse Practitioner: Rodríguez Suarez MD Anion gap [Moles/Vol] 14 mmol/L Normal 7-16 [facility] Comment on above: Performed By: #### P HVBG, LACTIC, PER, LIP, MG, CBC, CP #### [facility] [place] [address] House Calls Nurse Practitioner: Yaritza Infante MD #### BH #### [address] [place] [address] House Calls Nurse Practitioner: Rodríguez Suarez MD AST [Catalytic activity/Vol] 76 U/L High 0-31 [facility] Comment on above: Performed By: #### P HVBG, LACTIC, PER, LIP, MG, CBC, CP #### [facility] [place] [address] House Calls Nurse Practitioner: Yaritza Infante MD #### BH #### [address] [place] [address] House Calls Nurse Practitioner: Rodríguez Suarez MD Bilirubin [Mass/Vol] 0.3 mg/dL Normal 0.0-1.2 [facility] Comment on above: Performed By: #### P HVBG, LACTIC, PER, LIP, MG, CBC, CP #### [facility] [address] [place] [address] House Calls Nurse Practitioner: Yaritza Infante MD #### BH #### [place] [address] House Calls Nurse Practitioner: Rodríguez Suarez MD Calcium [Mass/Vol] 10.2 mg/dL Normal 8.6-10.2 [facility] Comment on above: Performed By: #### P HVBG, LACTIC, PER, LIP, MG, CBC, CP #### [facility] [address] [place] [address] House Calls Nurse Practitioner: Yaritza Infante MD #### BH #### [place] [address] House Calls Nurse Practitioner: Rodríguez Suarez MD Chloride [Moles/Vol] 100 mmol/L Normal 98-107 [facility] Comment on above: Performed By: #### P HVBG, LACTIC, PER, LIP, MG, CBC, CP #### [facility] [address] [place] [address] House Calls Nurse Practitioner: Yaritza Infante MD #### BH #### [place] [address] House Calls Nurse Practitioner: Rodríguez Suarez MD CO2 [Moles/Vol] 26 mmol/L Normal 22-29 [facility] Comment on above: Performed By: #### P HVBG, LACTIC, PER, LIP, MG, CBC, CP #### [facility] [address] [place] [address] House Calls Nurse Practitioner: Yaritza Infante MD #### BH #### [address] [address] House Calls Nurse Practitioner: Rodríguez Suarez MD Creatinine [Mass/Vol] 0.6 mg/dL Normal 0.50-1.00 [facility] Comment on above: Performed By: #### P HVBG, LACTIC, PER, LIP, MG, CBC, CP #### [facility] [address] [place] [address] House Calls Nurse Practitioner: Yaritza Infante MD #### BH #### [address] [place], [place] [address] House Calls Nurse Practitioner: Rodríguez Suarez MD GFR/1.73 sq M.predicted among non-blacks MDRD (S/P/Bld) [Vol rate/Area] mL/min/{1.73_m2} Normal >60 [facility] Comment on above: Result Comment: These results [...] LACTIC, PER, LIP, MG, CBC, CP #### [facility] [address] [place] [address] House Calls Nurse Practitioner: Yaritza Infante MD #### BH #### [address] [address] House Calls Nurse Practitioner: Rodríguez Suarez MD Glucose [Mass/Vol] 408 mg/dL High 74-99 [facility] Comment on above: Performed By: #### P HVBG, LACTIC, PER, LIP, MG, CBC, CP #### [facility] [address] [place] [address] House Calls Nurse Practitioner: Yaritza Infante MD #### BH #### [address] [address] House Calls Nurse Practitioner: Rodríguez Suarez MD Potassium [Moles/Vol] 4.1 mmol/L Normal 3.5-5.0 [facility] Comment on above: Performed By: #### P HVBG, LACTIC, PER, LIP, MG, CBC, CP #### [facility] [address] [place] [address] House Calls Nurse Practitioner: Yaritza Infante MD #### BH #### [place] [address] House Calls Nurse Practitioner: Rodríguez Suarez MD Protein [Mass/Vol] 6.6 g/dL Normal 6.4-8.3 [facility] Comment on above: Performed By: #### P HVBG, LACTIC, PER, LIP, MG, CBC, CP #### [facility] [address] [place] [address] House Calls Nurse Practitioner: Yaritza Infante MD #### BH #### [address] [address] House Calls Nurse Practitioner: Rodríguez Suarez MD Sodium [Moles/Vol] 140 mmol/L Normal 132-146 [facility] Comment on above: Performed By: #### P HVBG, LACTIC, PER, LIP, MG, CBC, CP #### [facility] [address] [place] [address] House Calls Nurse Practitioner: Yaritza Infante MD #### BH #### [address] [place] [address] House Calls Nurse Practitioner: Rodríguez Suarez MD Urea nitrogen [Mass/Vol] 21 mg/dL High 6-20 [facility] Comment on above: Performed By: #### P HVBG, LACTIC, PER, LIP, MG, CBC, CP #### [facility] [place] [address] House Calls Nurse Practitioner: Yaritza Infante MD #### BH #### [address] [place] [address] House Calls Nurse Practitioner: Rodríguez Suarez MD Glucose,Whole BloodOrdered B y: Marilee Hopkins on 04-10-2024 Glucose [Mass/Vol] 222 mg/dL High 74-99 [facility] Glucose,Whole Bloodon 2023 Glucose [Mass/Vol] 413 mg/dL High 74-99 [facility] Lactic Acidon 04-10-2024 Lactate (BldV) [Moles/Vol] 1.8 mmol/L 0.5 - 2.2 mmol/L [facility] Lactate [Moles/Vol] 1.8 mmol/L Normal 0.5-2.2 [facility] Comment on above: Performed By: #### P HVBG, LACTIC, PER, LIP, MG, CBC, CP #### [facility] [place] [address] House Calls Nurse Practitioner: Yaritza Infante MD #### BH #### [place] [address] House Calls Nurse Practitioner: Rodríguez Suarez MD Lipaseon 04-10-2024 Lipase [Catalytic activity/Vol] 93 U/L High 13 - 60 U/L [facility] Lipase [Catalytic activity/Vol] 93 U/L High 13-60 [facility] Comment on above: Performed By: #### P HVBG, LACTIC, PER, LIP, MG, CBC, CP #### [facility] [address] [place] [address] House Calls Nurse Practitioner: Yaritza Infante MD #### BH #### [facility] [address] [place] [address] House Calls Nurse Practitioner: Rodríguez Suarez MD No Panel Informationon 04-10 Interpretation and review of laboratory results Abnormal [facility] PH, VENOUSon 04-10-2024 pH, Suman 7.360 7.350 - 7.450 [facility] POCT Glucoseon 04-10-2024 Glucose [Mass/Vol] 222 mg/dL High 74 - 99 mg/dL [facility] Interpretation and review of laboratory results Abnormal [facility] Glucose [Mass/Vol] 413 mg/dL High 74 - 99 mg/dL [facility] Interpretation and review of laboratory results Abnormal [facility] POCT GlucoseOrdered By: Quentin Hopkins on 04-10-2024 Interpretation and review of laboratory results Normal [facility] QC OK? yes [facility] POCT GlucoseOrdered By: Rob Garcia on 04-10-2024 Glucose [Mass/Vol] 413 mg/dL [facility] Interpretation and review of laboratory results Normal [facility] QC OK? ok [facility] Troponinon 04-10-2024 Troponin I.cardiac High sensitivity method [Mass/Vol] 8 ng/L 0 - 9 ng/L [facility] Comment on above: High Sensitivity Troponin values cannot be compared with other Troponin methodologies. Patients with high levels of Biotin oral intake (i.e >5mg/day) may have falsely decreased Troponin levels. Samples collected within 8 hours of biotin intake may require additional information for diagnosis. Troponin, High Sens 8 ng/L Normal 0-9 [facility] Comment on above: Result Comment: High Sensitivity Troponin values cannot be compared with other Troponin methodologies. Patients with high levels of Biotin oral intake (i.e >5mg/day) may have falsely decreased Troponin levels. Samples collected within 8 hours of biotin intake may require additional information for diagnosis. Performed By: #### P HVBG, LACTIC, PER, LIP, MG, CBC, CP #### [facility] [address] [place] [address] House Calls Nurse Practitioner: Yaritza Infante MD #### #### [facility] [address] [facility] [place] [address] House Calls Nurse Practitioner: Rodríguez Suarez MD Urinalysis w/ Microon 2023 Bacteria 2+ Abnormal NONE [facility] Comment on above: Performed By: #### U AMIC ####[place] [place] [address] Lab Director: Rodríguez Suarez MD Epithelial cells LM Ql (Urine sed) 6 TO 9 Normal [facility] Comment on above: Performed By: #### U AMIC ####[facility] [place] [address] Lab Director: Rodríguez Suarez MD Urine RBC's 0 TO 2 Normal R02 [facility] Comment on above: Performed By: #### U AMIC ####[address] [place] [phone] Director: Rodríguez Suarez MD Urine WBC's 0 TO 5 Normal R05 [facility] Comment on above: Performed By: #### U AMIC ####[place] [address] [place] [address] Lab Director: Rodríguez Suarez MD Bilirubin, SemiQt,Ur Negative Normal NEG [facility] Comment on above: Performed By: #### U AMIC ####[place] [address] [place] [address] Lab Director: Rodríguez Suarez MD Blood, Urine Negative Normal NEG [facility] Comment on above: Performed By: #### U AMIC ####[place] [address] [place] [phone] Director: Rodríguez Suarez MD Clarity (U) SLIGHTLY CLOUDY Abnormal CLEAR [facility] Comment on above: Performed By: #### U AMIC ####[place] [address] [place] [phone] Director: Rodríguez Suarez MD Color (U) Yellow Normal YEL [facility] Comment on above: Performed By: #### U AMIC ####[place] [address] [place] [phone] Director: Rodríguez Suarez MD Glucose Ql (U) >=1000 Abnormal NEG [facility] Comment on above: Performed By: #### U AMIC ####[place] [address] [place] [address] Lab Director: Rodríguez Saurez MD Ketones Ql (U) Negative Normal NEG [facility] Comment on above: Performed By: #### U AMIC ####[place] [address] [place] [phone] Director: Rodríguez Suarez MD Leukocyte esterase Test strip Ql (U) Negative Normal NEG [facility] Comment on above: Performed By: #### U AMIC ####[place] [address] [place] [phone] Director: Rodríguez Suarez MD Nitrite,Ur Negative Normal NEG [facility] Comment on above: Performed By: #### U AMIC ####[place], [place] [address])[phone] Director: Rodríguez Suarez MD PH,Ur 5.0 Normal 5.0-9.0 [facility] Comment on above: Performed By: #### U AMIC ####[place] [address]([facility])[phone] Director: Rodríguez Suarez MD Protein Ql (U) Negative Normal NEG [facility] Comment on above: Performed By: #### U AMIC ####[place], [place] [address])[phone] Director: Rodríguez Suarez MD Spec. [place],Ur 1.015 Normal 1.005-1.030 [facility] Comment on above: Performed By: #### U AMIC ####[place], [place] [address])[phone] Director: Rodríguez Suarez MD Urobilinogen,Ur 0.2 EU/dL Normal 0.0-1.0 [facility] Comment on above: Performed By: #### U AMIC ####[place], [place] [address])[phone] Director: Rodríguez Suarez MD Urinalysis with Microscopico n 04-10-2024 Bacteria LM Ql (Urine sed) 2+ Abnormal None [facility] Bilirubin Ql (U) Negative NEGATIVE [facility] Clarity (U) SLIGHTLY CLOUDY Abnormal Clear [facility] Color (U) Yellow Yellow [facility] Epithelial cells LM.HPF (Urine sed) [#/Area] 6 TO 9 /HPF [facility] Glucose Test strip (U) [Mass/Vol] >=1000 Abnormal NEGATIVE mg/dL [facility] Hemoglobin Auto test strip Ql (U) Negative NEGATIVE [facility] Interpretation and review of laboratory results Abnormal [facility] Ketones (U) [Mass/Vol] Negative NEGATIVE mg/dL [facility] Leukocyte esterase Test strip Ql (U) Negative NEGATIVE [facility] Nitrite Ql (U) Negative NEGATIVE [facility] pH (U) 5.0 [pH] 5.0 - 9.0 [facility] Protein (U) [Mass/Vol] Negative NEGATIVE mg/dL [facility] RBC LM.HPF (Urine sed) [#/Area] 0 TO 2 0 TO 2 /HPF [facility] Specific gravity (U) [Rel density] 1.015 1.005 - 1.030 [facility] Urobilinogen Qn (U) 0.2 {Lionel'U}/dL 0. 0 - 1.0 EU/dL [facility] WBC LM.HPF (Urine sed) [#/Area] 0 TO 5 0 TO 5 /HPF [facility] Venous pHon 04-10-2024 pH (Bld) 7.360 [pH] Normal 7.350-7.450 [facility] Comment on above: Performed By: #### P HVBG, LACTIC, PER, LIP, MG, CBC, CP #### [facility] [address] [place] [address] House Calls Nurse Practitioner: Yaritza Infante MD #### #### [address] [address] House Calls Nurse Practitioner: Rodríguez Suarez MD XR CHEST (2 VW)on [...] Mike Byrd MD 04/10/24 Final result Normal [facility] Comment on above: Order Comment: Waldo n for exam:->hyperglycemia XR Chest 2 Viewson 1. Small infiltrate seen within the retrocardiac region 2. Questionable ground-glass airspace disease within the right and left lungs. [facility] EXAMINATION: TWO XRAY VIEWS OF THE CHEST 04/10/2024 3:14 pm COMPARISON: None. HISTORY: ORDERING SYSTEM PROVIDED HISTORY: hyperglycemia TECHNOLOGIST PROVIDED HISTORY: Reason for exam:->hyperglycemia FINDINGS: The cardiac silhouette is within normals. I cannot exclude ground-glass airspace disease within the right and left lungs. Within the retrocardiac region there is a small infiltrate. There is no right or left pleural effusion. [facility] Mike Byrd MD - 04/10/2024 EXAMINATION: [...] disease within the right and left lungs. [facility] Radiology Study observation (narrative) [facility] XR Chest 2 ViewsOrdered By: Mike Byrd on 04-10-2024 [facility] Work Phone: Acid Fast Bacillus Cultureon 04-09-2024 tAFBC Normal [facility] Comment on above: Performed By: #### M 600.2000, M100.4001, M600.2200, M100.2000, M300.2000, M300.3000, M100.3000 ####[facility] [id number] [place], [address] Acid Fast Bacillus Smear/Flu oron 04-09-2024 tafb Normal [facility] Comment on above: Performed By: #### M 600.2000, M100.4001, M600.2200, M100.2000, M300.2000, M300.3000, M100.3000 ####[facility] [id number] [place], [address] Culture, Fungus 8482on 04-09 CUF Normal [facility] Comment on above: Performed By: #### M 600.2000, M100.4001, M600.2200, M100.2000, M300.2000, M300.3000, M100.3000 ####[facility] [id number] [place], [address] Fungus Stain 8136on 04-09-20 24 FUNST [facility] Comment on above: Performed By: #### M 600.2000, M100.4001, M600.2200, M100.2000, M300.2000, M300.3000, M100.3000 ####[facility] [address] [place], [address] Amylaseon 03-24-2024 Amylase [Catalytic activity/Vol] 73 U/L 20 - 100 U/L [facility] Amylase [Catalytic activity/Vol] 73 U/L Normal 20-100 [facility] Comment on above: Performed By: #### P HVBG, LACTIC, PER, LIP, MG, CBC, CP #### [facility] [address] [place] [address] House Calls Nurse Practitioner: Yaritza Infante MD #### BH #### [facility] [address] [place] [address] House Calls Nurse Practitioner: Rodríguez Suarez MD Beta Hydroxybutyrateon 03-24 Beta Hydroxybutyrate 0.08 mmol/L Normal 0.02-0.27 [facility] Comment on above: Performed By: #### P HVBG, LACTIC, PER, LIP, MG, CBC, CP #### [facility] [address] [place] [address] House Calls Nurse Practitioner: Yaritza Infante MD #### #### [address] [phone] House Calls Nurse Practitioner: Rodríguez Suarez MD CBCon 03-24-2024 Erythrocyte distribution width (RBC) [Ratio] 12.2 % 11.5 - 15.0 % [facility] Hematocrit (Bld) [Volume fraction] 38.2 % 34.0 - 48.0 % [facility] Hemoglobin (Bld) [Mass/Vol] 12.8 g/dL 11.5 - 15.5 g/dL [facility] MCH (RBC) [Entitic mass] 27.6 pg 26.0 - 35.0 pg [facility] MCHC (RBC) [Mass/Vol] 33.5 g/dL 32.0 - 34.5 g/dL [facility] MCV (RBC) [Entitic vol] 82.3 fL 80.0 - 99.9 fL [facility] Platelet mean volume (Bld) [Entitic vol] 11.4 fL 7.0 - 12.0 fL [facility] Platelets (Bld) [#/Vol] 154 10*3/uL [facility] RBC (Bld) [#/Vol] 4.64 10*6/uL 3.50 - 5.5 0 m/uL [facility] WBC other (Bld) [#/Vol] 4.6 [facility] Erythrocyte distribution width (RBC) [Ratio] 12.2 % Normal 11.5-15.0 [facility] Comment on above: Performed By: #### P HVBG, LACTIC, PER, LIP, MG, CBC, CP #### [facility] [place] [address] House Calls Nurse Practitioner: Yaritza Infante MD #### BH #### [place] [address] House Calls Nurse Practitioner: Rodríguez Suarez MD Hematocrit (Bld) [Volume fraction] 38.2 % Normal 34.0-48.0 [facility] Comment on above: Performed By: #### P HVBG, LACTIC, PER, LIP, MG, CBC, CP #### [facility] [address] [place] [address] House Calls Nurse Practitioner: Yaritza Infante MD #### BH #### [place] [address] House Calls Nurse Practitioner: Rodríguez Suarez MD Hemoglobin (Bld) [Mass/Vol] 12.8 g/dL Normal 11.5-15.5 [facility] Comment on above: Performed By: #### P HVBG, LACTIC, PER, LIP, MG, CBC, CP #### [facility] [address] [place] [address] House Calls Nurse Practitioner: Yaritza Infante MD #### BH #### [place] [address] House Calls Nurse Practitioner: Rodríguez Suarez MD MCH (RBC) [Entitic mass] 27.6 pg Normal 26.0-35.0 [facility] Comment on above: Performed By: #### P HVBG, LACTIC, PER, LIP, MG, CBC, CP #### [facility] [address] [place] [address] House Calls Nurse Practitioner: Yaritza Infante MD #### BH #### [place] [address] House Calls Nurse Practitioner: Rodríguez Suarez MD MCHC (RBC) [Mass/Vol] 33.5 g/dL Normal 32.0-34.5 [facility] Comment on above: Performed By: #### P HVBG, LACTIC, PER, LIP, MG, CBC, CP #### [facility] [place] [address] House Calls Nurse Practitioner: Yaritza Infante MD #### BH #### [place] [address] House Calls Nurse Practitioner: Rodríguez Suarez MD MCV (RBC) [Entitic vol] 82.3 fL Normal 80.0-99.9 [facility] Comment on above: Performed By: #### P HVBG, LACTIC, PER, LIP, MG, CBC, CP #### [facility] [address] [place] [address] House Calls Nurse Practitioner: Yaritza Infante MD #### BH #### [place] [address] House Calls Nurse Practitioner: Rodríguez Suarez MD Platelet mean volume (Bld) [Entitic vol] 11.4 fL Normal 7.0-12.0 [facility] Comment on above: Performed By: #### P HVBG, LACTIC, PER, LIP, MG, CBC, CP #### [facility] [address] [place] [address] House Calls Nurse Practitioner: Yaritza Infante MD #### BH #### [place] [address] House Calls Nurse Practitioner: Rodríguez Suarez MD Platelets (Bld) [#/Vol] 154 10*3/uL Normal 130-450 [facility] Comment on above: Performed By: #### P HVBG, LACTIC, PER, LIP, MG, CBC, CP #### [facility] [address] [place] [address] House Calls Nurse Practitioner: Yaritza Infante MD #### BH #### [place] [address] House Calls Nurse Practitioner: Rodríguez Suarez MD RBC (Bld) [#/Vol] 4.64 10*6/uL Normal 3.50-5.50 [facility] Comment on above: Performed By: #### P HVBG, LACTIC, PER, LIP, MG, CBC, CP #### [facility] [address] [place] [address] House Calls Nurse Practitioner: Yaritza Infante MD #### BH #### [place] [address] House Calls Nurse Practitioner: Rodríguez Suarez MD WBC (Bld) [#/Vol] 4.6 10*3/uL Normal 4.5-11.5 [facility] Comment on above: Performed By: #### P HVBG, LACTIC, PER, LIP, MG, CBC, CP #### [facility] [address] [place] [address] House Calls Nurse Practitioner: Yaritza Infante MD #### BH #### [place] [address] House Calls Nurse Practitioner: Rodríguez Suarez MD Comp Metabolic Profon 2023 Albumin [Mass/Vol] 3.4 g/dL Low 3.5-5.2 [facility] Comment on above: Performed By: #### P HVBG, LACTIC, PER, LIP, MG, CBC, CP #### [facility] [address] [place] [address] House Calls Nurse Practitioner: Yaritza Infante MD #### BH #### [address] [address] House Calls Nurse Practitioner: Rodríguez Suarez MD Alkaline Phos 137 U/L High 35-104 [facility] Comment on above: Performed By: #### P HVBG, LACTIC, PER, LIP, MG, CBC, CP #### [facility] [address] [place] [address] House Calls Nurse Practitioner: Yaritza Infante MD #### BH #### [place] [address] House Calls Nurse Practitioner: Rodríguez Suarez MD ALT [Catalytic activity/Vol] 97 U/L High 0-32 [facility] Comment on above: Performed By: #### P HVBG, LACTIC, PER, LIP, MG, CBC, CP #### [facility] [address] [place] [address] House Calls Nurse Practitioner: Yaritza Infante MD #### BH #### [place] [address] House Calls Nurse Practitioner: Rodríguez Suarez MD Anion gap [Moles/Vol] 10 mmol/L Normal 7-16 [facility] Comment on above: Performed By: #### P HVBG, LACTIC, PER, LIP, MG, CBC, CP #### [facility] [place] [address] House Calls Nurse Practitioner: Yaritza Infante MD #### BH #### [address] [address] House Calls Nurse Practitioner: Rodríguez Suarez MD AST [Catalytic activity/Vol] 77 U/L High 0-31 [facility] Comment on above: Performed By: #### P HVBG, LACTIC, PER, LIP, MG, CBC, CP #### [facility] [address] [place] [address] House Calls Nurse Practitioner: Yaritza Infante MD #### BH #### [place] [address] House Calls Nurse Practitioner: Rodríguez Suarez MD Bilirubin [Mass/Vol] 0.2 mg/dL Normal 0.0-1.2 [facility] Comment on above: Performed By: #### P HVBG, LACTIC, PER, LIP, MG, CBC, CP #### [facility] [address] [place] [address] House Calls Nurse Practitioner: Yaritza Infante MD #### BH #### [place] [address] House Calls Nurse Practitioner: Rodríguez Suarez MD Calcium [Mass/Vol] 9.2 mg/dL Normal 8.6-10.2 [facility] Comment on above: Performed By: #### P HVBG, LACTIC, PER, LIP, MG, CBC, CP #### [facility] [address] [place] [address] House Calls Nurse Practitioner: Yaritza Infante MD #### BH #### [place] [address] House Calls Nurse Practitioner: Rodríguez Suarez MD Chloride [Moles/Vol] 103 mmol/L Normal 98-107 [facility] Comment on above: Performed By: #### P HVBG, LACTIC, PER, LIP, MG, CBC, CP #### [facility] [address] [place], [place] [id number] House Calls Nurse Practitioner: Yaritza Infante MD #### BH #### [address] [place] [address] House Calls Nurse Practitioner: Rodríguez Suarez MD CO2 [Moles/Vol] 26 mmol/L Normal 22-29 [facility] Comment on above: Performed By: #### P HVBG, LACTIC, PER, LIP, MG, CBC, CP #### [facility] [place] [address] House Calls Nurse Practitioner: Yaritza Infante MD #### BH #### [address] [place] [address] House Calls Nurse Practitioner: Rodríguez Suarez MD Creatinine [Mass/Vol] 0.6 mg/dL Normal 0.50-1.00 [facility] Comment on above: Performed By: #### P HVBG, LACTIC, PER, LIP, MG, CBC, CP #### [facility] [address] [place] [address] House Calls Nurse Practitioner: Yaritza Infante MD #### BH #### [address] [place] [address] House Calls Nurse Practitioner: Rodríguez Suarez MD GFR/1.73 sq M.predicted among non-blacks MDRD (S/P/Bld) [Vol rate/Area] mL/min/{1.73_m2} Normal >60 [facility] Comment on above: Result Comment: These results [...] LACTIC, PER, LIP, MG, CBC, CP #### [facility] [address] [place] [address] House Calls Nurse Practitioner: Yaritza Infante MD #### BH #### [address] [address] House Calls Nurse Practitioner: Rodríguez Suarez MD Glucose [Mass/Vol] 500 mg/dL High 74-99 [facility] Comment on above: Performed By: #### P HVBG, LACTIC, PER, LIP, MG, CBC, CP #### [facility] [place] [address] House Calls Nurse Practitioner: Yaritza Infante MD #### BH #### [address] [address] House Calls Nurse Practitioner: Rodríguez Suarez MD Potassium [Moles/Vol] 4.1 mmol/L Normal 3.5-5.0 [facility] Comment on above: Performed By: #### P HVBG, LACTIC, PER, LIP, MG, CBC, CP #### [facility] [place] [address] House Calls Nurse Practitioner: Yaritza Infante MD #### BH #### [address] [address] House Calls Nurse Practitioner: Rodríguez Suarez MD Protein [Mass/Vol] 5.9 g/dL Low 6.4-8.3 [facility] Comment on above: Performed By: #### P HVBG, LACTIC, PER, LIP, MG, CBC, CP #### [facility] [address] [place] [address] House Calls Nurse Practitioner: Yaritza Infante MD #### BH #### [address] [address] House Calls Nurse Practitioner: Rodríguez Suarez MD Sodium [Moles/Vol] 139 mmol/L Normal 132-146 [facility] Comment on above: Performed By: #### P HVBG, LACTIC, PER, LIP, MG, CBC, CP #### [facility] [address] [place] [address] House Calls Nurse Practitioner: Yaritza Infante MD #### BH #### [address] [address] House Calls Nurse Practitioner: Rodríguez Suarez MD Urea nitrogen [Mass/Vol] 18 mg/dL Normal 6-20 [facility] Comment on above: Performed By: #### P HVBG, LACTIC, PER, LIP, MG, CBC, CP #### [facility] [place] [address] House Calls Nurse Practitioner: Yaritza Infante MD #### BH #### [address] [address] House Calls Nurse Practitioner: Rodríguez Suarez MD [facility] Albumin [Mass/Vol] 3.4 g/dL Low 3.5 - 5.2 g/dL [facility] ALP [Catalytic activity/Vol] 137 U/L High 35 - 104 U/L [facility] ALT [Catalytic activity/Vol] 97 U/L High 0 - 32 U/L [facility] Anion gap [Moles/Vol] 10 mmol/L 7 - 16 mmol/L [facility] AST [Catalytic activity/Vol] 77 U/L High 0 - 31 U/L [facility] Bilirubin [Mass/Vol] 0.2 mg/dL 0.0 - 1 .2 mg/dL [facility] Calcium [Mass/Vol] 9.2 mg/dL 8.6 - 10. 2 mg/dL [facility] Chloride [Moles/Vol] 103 mmol/L 98 - 10 7 mmol/L [facility] CO2 [Moles/Vol] 26 mmol/L 22 - 29 mmol/L [facility] Creatinine [Mass/Vol] 0.6 mg/dL 0.50 - 1.00 mg/dL [facility] Funmilayo Murphy - PINF [facility] Comment on above: These results are [...] 500 mg/dL High 74 - 99 mg/dL [facility] Potassium [Moles/Vol] 4.1 mmol/L 3.5 - 5.0 mmol/L [facility] Protein [Mass/Vol] 5.9 g/dL Low 6.4 - 8.3 g/dL [facility] Sodium [Moles/Vol] 139 mmol/L 132 - 146 mmol/L [facility] Urea nitrogen [Mass/Vol] 18 mg/dL 6 - 20 mg/dL [facility] Lactic Acidon 03-24-2024 Lactate (BldV) [Moles/Vol] 2.0 mmol/L 0.5 - 2.2 mmol/L [facility] Lactate [Moles/Vol] 2.0 mmol/L Normal 0.5-2.2 [facility] Comment on above: Performed By: #### P HVBG, LACTIC, PER, LIP, MG, CBC, CP #### [facility] [address] [place] [address] House Calls Nurse Practitioner: Yaritza Infante MD #### BH #### [facility] [address] [place] [address] House Calls Nurse Practitioner: Rodríguez Suarez MD Lipaseon 03-24-2024 Lipase [Catalytic activity/Vol] 65 U/L High 13 - 60 U/L [facility] Lipase [Catalytic activity/Vol] 65 U/L High 13-60 [facility] Comment on above: Performed By: #### P HVBG, LACTIC, PER, LIP, MG, CBC, CP #### [facility] [address] [place] [address] House Calls Nurse Practitioner: Yaritza Infante MD #### BH #### [address] [address] House Calls Nurse Practitioner: Rodríguez Suarez MD Magnesiumon 03-24-2024 Magnesium [Mass/Vol] 1.7 mg/dL 1.6 - 2 .6 mg/dL [facility] Magnesium [Mass/Vol] 1.7 mg/dL Normal 1.6-2.6 [facility] Comment on above: Performed By: #### P HVBG, LACTIC, PER, LIP, MG, CBC, CP #### [facility] [place] [address] House Calls Nurse Practitioner: Yaritza Infante MD #### BH #### [address] [id number] House Calls Nurse Practitioner: Rodríguez Suarez MD No Panel Informationon 03-24 Interpretation and review of laboratory results Abnormal [facility] PH, VENOUSon 03-24-2024 pH, Suman 7.359 7.350 - 7.450 [facility] POCT GlucoseOrdered By: Scotty or Sharmila on 03-24-2024 Glucose [Mass/Vol] 467 mg/dL [facility] Interpretation and review of laboratory results Normal [facility] QC OK? y [facility] POCT Glucoseon 03-24-2024 Glucose [Mass/Vol] 467 mg/dL High 74 - 99 mg/dL [facility] Interpretation and review of laboratory results Abnormal [facility] Urinalysis w/ Microon 2023 Bacteria 1+ Abnormal NONE [facility] Comment on above: Performed By: #### P HVBG, LACTIC, PER, LIP, MG, CBC, CP #### [facility] [address] [place] [address] House Calls Nurse Practitioner: Yaritza Infante MD #### BH #### [address] [address] House Calls Nurse Practitioner: Rodríguez Suarez MD Epithelial cells LM Ql (Urine sed) 3 to 5 Normal [facility] Comment on above: Performed By: #### P HVBG, LACTIC, PER, LIP, MG, CBC, CP #### [facility] [address] [place] [address] House Calls Nurse Practitioner: Yaritza Infante MD #### BH #### [address] [place] [address] House Calls Nurse Practitioner: Rodríguez Suarez MD Urine RBC's 0 TO [address] Comment on above: Performed By: #### P HVBG, LACTIC, PER, LIP, MG, CBC, CP #### [facility] [address] [place] [address] House Calls Nurse Practitioner: Yaritza Infante MD #### BH #### [address] [place] [address] House Calls Nurse Practitioner: Rodríguez Suarez MD Urine WBC's 10 TO [address] Comment on above: Performed By: #### P HVBG, LACTIC, PER, LIP, MG, CBC, CP #### [facility] [address] [place] [address] House Calls Nurse Practitioner: Yaritza Infante MD #### BH #### [address] [address] House Calls Nurse Practitioner: Rodríguez Suarez MD Bilirubin, SemiQt,Ur Negative Normal NEG [facility] Comment on above: Performed By: #### P HVBG, LACTIC, PER, LIP, MG, CBC, CP #### [facility] [address] [place] [address] House Calls Nurse Practitioner: Yaritza Infante MD #### BH #### [place] [address] House Calls Nurse Practitioner: Rodríguez Suarez MD Blood, Urine Negative Normal NEG [facility] Comment on above: Performed By: #### P HVBG, LACTIC, PER, LIP, MG, CBC, CP #### [facility] [place] [address] House Calls Nurse Practitioner: Yaritza Infante MD #### BH #### [place] [address] House Calls Nurse Practitioner: Rodríguez Suarez MD Clarity (U) Clear Normal CLEAR [facility] Comment on above: Performed By: #### P HVBG, LACTIC, PER, LIP, MG, CBC, CP #### [facility] [place] [address] House Calls Nurse Practitioner: Yaritza Infante MD #### BH #### [place] [address] House Calls Nurse Practitioner: Rodríguez Suarez MD Color (U) Yellow Normal YEL [facility] Comment on above: Performed By: #### P HVBG, LACTIC, PER, LIP, MG, CBC, CP #### [facility] [address] [place] [address] House Calls Nurse Practitioner: Yaritza Infante MD #### BH #### [address] [place] [address] House Calls Nurse Practitioner: Rodríguez Suarez MD Glucose Ql (U) >=1000 Abnormal NEG [facility] Comment on above: Performed By: #### P HVBG, LACTIC, PER, LIP, MG, CBC, CP #### [facility] [place] [address] House Calls Nurse Practitioner: Yaritza Infante MD #### BH #### [address] [place] [address] House Calls Nurse Practitioner: Rodríguez Suarez MD Ketones Ql (U) Negative Normal NEG [facility] Comment on above: Performed By: #### P HVBG, LACTIC, PER, LIP, MG, CBC, CP #### [facility] [address] [place] [address] House Calls Nurse Practitioner: Yaritza Infante MD #### BH #### [address] [place] [address] House Calls Nurse Practitioner: Rodríguez Suarez MD Leukocyte esterase Test strip Ql (U) TRACE Abnormal NEG [facility] Comment on above: Performed By: #### P HVBG, LACTIC, PER, LIP, MG, CBC, CP #### [facility] [address] [place] [address] House Calls Nurse Practitioner: Yaritza Infante MD #### BH #### [address] [place] [address] House Calls Nurse Practitioner: Rodríguez Suarez MD Nitrite,Ur Negative Normal NEG [facility] Comment on above: Performed By: #### P HVBG, LACTIC, PER, LIP, MG, CBC, CP #### [facility] [address] [place] [address] House Calls Nurse Practitioner: Yaritza Infante MD #### BH #### [place] [address] House Calls Nurse Practitioner: Rodríguez Suarez MD PH,Ur 6.0 Normal 5.0-9.0 [facility] Comment on above: Performed By: #### P HVBG, LACTIC, PER, LIP, MG, CBC, CP #### [facility] [address] [place] [address] House Calls Nurse Practitioner: Yaritza Infante MD #### BH #### [place] [address] House Calls Nurse Practitioner: Rodríguez Suarez MD Protein Ql (U) Negative Normal NEG [facility] Comment on above: Performed By: #### P HVBG, LACTIC, PER, LIP, MG, CBC, CP #### [facility] [address] [place] [address] House Calls Nurse Practitioner: Yaritza Infante MD #### BH #### [place] [address] House Calls Nurse Practitioner: Rodríguez Suarez MD Spec. [place],Ur 1.010 Normal 1.005-1.030 [facility] Comment on above: Performed By: #### P HVBG, LACTIC, PER, LIP, MG, CBC, CP #### [facility] [address] [place] [address] House Calls Nurse Practitioner: Yaritza Infante MD #### BH #### [facility] [address] [place], [place] [id number] House Calls Nurse Practitioner: Rodríguez Suarez MD Urobilinogen,Ur 0.2 EU/dL Normal 0.0-1.0 [facility] Comment on above: Performed By: #### P HVBG, LACTIC, PER, LIP, MG, CBC, CP #### [facility] [address] [place], [place] [id number] House Calls Nurse Practitioner: Yaritza Infante MD #### #### [facility] [address] [place], [place] [id number] House Calls Nurse Practitioner: Rodríguez Suarez MD Urinalysis with Microscopico n 03-24-2024 Bacteria LM Ql (Urine sed) 1+ Abnormal None [facility] Bilirubin Ql (U) Negative NEGATIVE [facility] Clarity (U) Clear Clear [facility] Color (U) Yellow Yellow [facility] Epithelial cells LM.HPF (Urine sed) [#/Area] 3 to 5 /HPF [facility] Glucose Test strip (U) [Mass/Vol] >=1000 Abnormal NEGATIVE mg/dL [facility] Hemoglobin Auto test strip Ql (U) Negative NEGATIVE [facility] Interpretation and review of laboratory results Abnormal [facility] Ketones (U) [Mass/Vol] Negative NEGATIVE mg/dL [facility] Leukocyte esterase Test strip Ql (U) TRACE Abnormal NEGATIVE [facility] Nitrite Ql (U) Negative NEGATIVE [place] [facility] pH (U) 6.0 [pH] 5.0 - 9.0 [facility] Protein (U) [Mass/Vol] Negative NEGATIVE mg/dL [facility] RBC LM.HPF (Urine sed) [#/Area] 0 TO 2 0 TO 2 /HPF [facility] Specific gravity (U) [Rel density] 1.010 1.005 - 1.030 [facility] Urobilinogen Qn (U) 0.2 {Lionel'U}/dL 0. 0 - 1.0 EU/dL [facility] WBC LM.HPF (Urine sed) [#/Area] 10 TO 20 Abnormal 0 TO 5 /HPF [facility] Venous pHon 03-24-2024 pH (Bld) 7.359 [pH] Normal 7.350-7.450 [facility] Comment on above: Performed By: #### P HVBG, LACTIC, PER, LIP, MG, CBC, CP #### [facility] [address] [place] [address] House Calls Nurse Practitioner: Yaritza Infante MD #### #### [facility] [address] [place] [address] House Calls Nurse Practitioner: Rodríguez Suarez MD Complement C3on 03-05-2024 COMP C3 107 mg/dL Normal 82-167 [facility] Comment on above: Result Comment: Perf ormed at: CB - [facility] [place] [id number] Director: Dave Peters PhD, Phone: [phone] Performed By: #### L 3100.5800, L9171.8673 ####[facility] [address] [facility] [place], [place], [id number] Complement C4on 03-05-2024 COMPLEMENT, C4 22 mg/dL Normal 12-38 [facility] Comment on above: Performed By: #### L 3100.5800, L3100.5700 ####[facility] [address] [place], [address] Culture, Anaerobic Any Sourc rashmi 03-01-2024 CUAN collected in or bone culture right proximal phalyn No growth in 5 days. Normal [facility] Comment on above: Performed By: #### M 600.2000, M100.4001, M600.2200, M100.2000, M300.2000, M300.3000, M100.3000 ####[facility] [address] [place], [address] Basic Metabolic Profile (BMP )on 02-29-2024 BUN/CRE 14.9 RATIO Normal 10-20 [facility] Comment on above: Performed By: #### L 500.2500 ####[facility] [address] [place], [address] CA,Total 8.4 mg/dL Low 8.5-10.1 [facility] Comment on above: Performed By: #### L 500.2500 ####[facility] [address] [place], [address] Chloride [Moles/Vol] 110 mmol/L High 98-107 [facility] Comment on above: Performed By: #### L 500.2500 ####[facility] [address] [place], [address] CO2 [Moles/Vol] 25.0 mmol/L Normal 21.0-32.0 [facility] Comment on above: Performed By: #### L 500.2500 ####[facility] [address] [place], [address] Creatinine [Mass/Vol] 2.69 mg/dL High 0.55-1.02 [facility] Comment on above: Result Comment: The validity of the calculated GFR GFRAA in patients over70 years has not been determined. Clinical correlation isessential. Performed By: #### L 500.2500 ####[facility] [address] [place], [address] ECRCL 24.02 ml/min Normal [facility] Comment on above: Performed By: #### L 500.2500 ####[facility] [address] [place], [address] EST GFR - AA 24 mL/min Low >60 [facility] Comment on above: Result Comment: Afri can [place] GFR Calc Performed By: #### L 500.2500 ####[facility] [address] [place], [address] GAP 3 Low 5-15 [facility] Comment on above: Performed By: #### L 500.2500 ####[facility] [address] [place], [address] GFR/1.73 sq M.predicted among non-blacks MDRD (S/P/Bld) [Vol rate/Area] 20 mL/min/{1.73_m2} Low >60 [facility] Comment on above: Result Comment: Non- GFR Calc Performed By: #### L 500.2500 ####[facility] [address] [place], [address] Glucose [Mass/Vol] 342 mg/dL High 74-106 [facility] Comment on above: Result Comment: Gluc ose result greater than or equal to 200 mg/dLsuggests DIABETES MELLITUS per A.D.A. criteria. Performed By: #### L 500.2500 ####[facility] [address] [place], [address] Potassium [Moles/Vol] 5.1 mmol/L Normal 3.5-5.1 [facility] Comment on above: Performed By: #### L 500.2500 ####[facility] [address] [place], [address] Sodium [Moles/Vol] 138 mmol/L Normal 136-145 [facility] Comment on above: Performed By: #### L 500.2500 ####[facility] [address] [place], [address] Urea nitrogen [Mass/Vol] 40 mg/dL High 7-18 [facility] Comment on above: Performed By: #### L 500.2500 ####[facility] [address] [place], [address] Bedside Glucoseon 02-29-2024 FINGERSTICK GLU 328 mg/dL High 74-106 [facility] Comment on above: Result Comment: DELLA COX OF PATIENT CARE PER NURSING PROTOCOL Performed By: #### L 501.080 ####[facility] [address] [place], [address] Discharge Instructionon 02-13 Discharge Instruction Normal [facility] Basic Metabolic Profile (BMP )on 02-28-2024 BUN/CRE 17.4 RATIO Normal 10-20 [facility] Comment on above: Performed By: #### L 500.2500 ####[facility] [address] [place], [address] CA,Total 8.5 mg/dL Normal 8.5-10.1 [facility] Comment on above: Performed By: #### L 500.2500 ####[facility] [address] [place], [address] Chloride [Moles/Vol] 114 mmol/L High 98-107 [facility] Comment on above: Performed By: #### L 500.2500 ####[facility] [address] [place], [address] CO2 [Moles/Vol] 25.0 mmol/L Normal 21.0-32.0 [facility] Comment on above: Performed By: #### L 500.2500 ####[facility] [address] [place], [address] Creatinine [Mass/Vol] 2.70 mg/dL High 0.55-1.02 [facility] Comment on above: Result Comment: The validity of the calculated GFR GFRAA in patients over70 years has not been determined. Clinical correlation isessential. Performed By: #### L 500.2500 ####[facility] [address] [place], [address] ECRCL 23.93 ml/min Normal [facility] Comment on above: Performed By: #### L 500.2500 ####[facility] [address] [place], [address] EST GFR - AA 24 mL/min Low >60 [facility] Comment on above: Result Comment: Afri can [place] GFR Calc Performed By: #### L 500.2500 ####[facility] [address] [place], [address] GAP 3 Low 5-15 [facility] Comment on above: Performed By: #### L 500.2500 ####[facility] [address] [place], [address] GFR/1.73 sq M.predicted among non-blacks MDRD (S/P/Bld) [Vol rate/Area] 20 mL/min/{1.73_m2} Low >60 [facility] Comment on above: Result Comment: Non- GFR Calc Performed By: #### L 500.2500 ####[facility] [address] [place], [address] Glucose [Mass/Vol] 90 mg/dL Normal 74-106 [facility] Comment on above: Performed By: #### L 500.2500 ####[facility] [address] [place], [address] Potassium [Moles/Vol] 4.6 mmol/L Normal 3.5-5.1 [facility] Comment on above: Performed By: #### L 500.2500 ####[facility] [address] [place], [address] Sodium [Moles/Vol] 142 mmol/L Normal 136-145 [facility] Comment on above: Performed By: #### L 500.2500 ####[facility] [address] [place], [address] Urea nitrogen [Mass/Vol] 47 mg/dL High 7-18 [facility] Comment on above: Performed By: #### L 500.2500 ####[facility] [address] [place], [address] Bedside Glucoseon 02-28-2024 FINGERSTICK GLU 158 mg/dL High [address] [place] [address] Comment on above: Result Comment: DELLA GEMENT OF PATIENT CARE PER NURSING PROTOCOL Performed By: #### L 501.080 ####[facility] [address] [place], [address] FINGERSTICK GLU 182 mg/dL High [address] [place] [address] Comment on above: Result Comment: DELLA GEMENT OF PATIENT CARE PER NURSING PROTOCOL Performed By: #### L 501.080 ####[facility] [address] [place], [address] FINGERSTICK GLU 303 mg/dL High [address] [place] [address] Comment on above: Result Comment: DELLA GEMENT OF PATIENT CARE PER NURSING PROTOCOL Performed By: #### L 501.080 ####[facility] [address] [place], [address] FINGERSTICK GLU 194 mg/dL High [address] [place] [address] Comment on above: Result Comment: DELLA GEMENT OF PATIENT CARE PER NURSING PROTOCOL Performed By: #### L 501.080 ####[facility] [address] [place], [address] CBC W/Diff, Automatedon 02-13 Absolute Lymph 1.40 X10 3/uL Normal 0.83-4.51 [facility] Comment on above: Performed By: #### L 100.0100 ####[facility] [address] [place], [address] Absolute Neut 2.7 X10 3/uL Normal 2.0-7.7 [facility] Comment on above: Performed By: #### L 100.0100 ####[facility] [address] [place], [address] Basophils/100 WBC (Bld) 0.4 % Normal 0-1 [facility] Comment on above: Performed By: #### L 100.0100 ####[facility] [address] [place], [address] Eosinophils/100 WBC (Bld) 2.8 % Normal 0-5 [facility] Comment on above: Performed By: #### L 100.0100 ####[facility] [address] [place], [address] Erythrocyte distribution width (RBC) [Ratio] 13.2 % Normal 11.6-14.6 [facility] Comment on above: Performed By: #### L 100.0100 ####[facility] [address] [place], [address] Hematocrit (Bld) [Volume fraction] 37.8 % Normal 37-47 [facility] Comment on above: Performed By: #### L 100.0100 ####[facility] [address] [place], [address] Hemoglobin (Bld) [Mass/Vol] 12.3 g/dL Normal 12.0-15.0 [facility] Comment on above: Performed By: #### L 100.0100 ####[facility] [address] [place], [address] IG% 1.400 High 0.0-0.9 [facility] Comment on above: Result Comment: IG% - Immature Granulocytes (promyelocytes, myelocytes andmetamyelocytes) > 1% indicates that a LEFT SHIFT is Present. Performed By: #### L 100.0100 ####[facility] [address] [place], [address] Lymphocytes/100 WBC (Bld) 27.5 % Normal 19-41 [facility] Comment on above: Performed By: #### L 100.0100 ####[facility] [address] [place], [address] MCH (RBC) [Entitic mass] 28.5 pg Normal 27.0-32.0 [facility] Comment on above: Performed By: #### L 100.0100 ####[facility] [address] [place], [address] MCHC (RBC) [Mass/Vol] 32.5 g/dL Normal 32-36 [facility] Comment on above: Performed By: #### L 100.0100 ####[facility] [address] [place], [address] MCV (RBC) [Entitic vol] 87.5 fL Normal 81-99 [facility] Comment on above: Performed By: #### L 100.0100 ####[facility] [address] [place], [address] Monocytes/100 WBC (Bld) 15.7 % High 0-10 [facility] Comment on above: Performed By: #### L 100.0100 ####[facility] [address] [place], [address] Neutrophils/100 WBC (Bld) 52.2 % Normal 47-70 [facility] Comment on above: Performed By: #### L 100.0100 ####[facility] [address] [place], [address] Nucleated RBC (Bld) [#/Vol] 0 10*3/uL Normal 0-5 [facility] Comment on above: Performed By: #### L 100.0100 ####[facility] [address] [place], [address] Platelet mean volume (Bld) [Entitic vol] 10.4 fL Normal 6.2-12.0 [facility] Comment on above: Performed By: #### L 100.0100 ####[facility] [address] [place], [address] Platelets (Bld) [#/Vol] 156 10*3/uL Normal 150-450 [facility] Comment on above: Performed By: #### L 100.0100 ####[facility] [address] [place], [address] RBC (Bld) [#/Vol] 4.32 10*6/uL Normal 4.2-5.4 [facility] Comment on above: Performed By: #### L 100.0100 ####[facility] [address] [place], [address] RDW SD 41.7 fl Normal 35.1-43.9 [facility] Comment on above: Performed By: #### L 100.0100 ####[facility] [address] [place], [address] WBC (Bld) [#/Vol] 5.1 10*3/uL Normal 4.4-11.0 [facility] Comment on above: Performed By: #### L 100.0100 ####[facility] [address] [place], [address] Basic Metabolic Profile (BMP )on 02-27-2024 BUN/CRE 16.9 RATIO Normal 10-20 [facility] Comment on above: Performed By: #### L 500.2500 ####[facility] [address] [place], [address] CA,Total 8.4 mg/dL Low 8.5-10.1 [facility] Comment on above: Performed By: #### L 500.2500 ####[facility] [address] [place], [address] Chloride [Moles/Vol] 109 mmol/L High 98-107 [facility] Comment on above: Performed By: #### L 500.2500 ####[facility] [address] [place], [address] CO2 [Moles/Vol] 26.0 mmol/L Normal 21.0-32.0 [facility] Comment on above: Performed By: #### L 500.2500 ####[facility] [address] [place], [address] Creatinine [Mass/Vol] 2.95 mg/dL High 0.55-1.02 [facility] Comment on above: Result Comment: The validity of the calculated GFR GFRAA in patients over70 years has not been determined. Clinical correlation isessential. Performed By: #### L 500.2500 ####[facility] [address] [place], [address] ECRCL 21.91 ml/min Normal [facility] Comment on above: Performed By: #### L 500.2500 ####[facility] [address] [place], [address] EST GFR - AA 21 mL/min Low >60 [facility] Comment on above: Result Comment: Afri can [place] GFR Calc Performed By: #### L 500.2500 ####[facility] [address] [place], [address] GAP 3 Low 5-15 [facility] Comment on above: Performed By: #### L 500.2500 ####[facility] [address] [place], [address] GFR/1.73 sq M.predicted among non-blacks MDRD (S/P/Bld) [Vol rate/Area] 18 mL/min/{1.73_m2} Low >60 [facility] Comment on above: Result Comment: Non- GFR Calc Performed By: #### L 500.2500 ####[facility] [address] [place], [address] Glucose [Mass/Vol] 354 mg/dL High 74-106 [facility] Comment on above: Result Comment: Gluc ose result greater than or equal to 200 mg/dLsuggests DIABETES MELLITUS per A.D.A. criteria. Performed By: #### L 500.2500 ####[facility] [address] [place], [address] Potassium [Moles/Vol] 4.9 mmol/L Normal 3.5-5.1 [facility] Comment on above: Performed By: #### L 500.2500 ####[facility] [address] [place], [address] Sodium [Moles/Vol] 138 mmol/L Normal 136-145 [facility] Comment on above: Performed By: #### L 500.2500 ####[facility] [address] [place], [address] Urea nitrogen [Mass/Vol] 50 mg/dL High 7-18 [facility] Comment on above: Performed By: #### L 500.2500 ####[facility] [address] [place], [address] Bedside Glucoseon 02-27-2024 FINGERSTICK GLU 248 mg/dL High 74-106 [facility] Comment on above: Result Comment: DELLA GEMENT OF PATIENT CARE PER NURSING PROTOCOL Performed By: #### L 501.080 ####[facility] [address] [place], [address] FINGERSTICK GLU 352 mg/dL High 74-106 [facility] Comment on above: Result Comment: DELLA GEMENT OF PATIENT CARE PER NURSING PROTOCOL Performed By: #### L 501.080 ####[facility] [address] [place], [address] FINGERSTICK GLU 216 mg/dL High 74-106 [facility] Comment on above: Result Comment: DELLA GEMENT OF PATIENT CARE PER NURSING PROTOCOL Performed By: #### L 501.080 ####[facility] [address] [place], [address] Consultation - Nephrologyon 02-27-2024 Consultation - Nephrology Normal [facility] Creatinine, Urineon 11-14-20 24 URINE CREAT 29.20 mg/dL Normal NO RANGE EST. [facility] Comment on above: Performed By: #### L 502.0300, L400.0001, L500.9400 ####[facility] [address] [place], [address] Kidney and Bladderon 2 024 Kidney and Bladder Normal [facility] Protein, Urine (Random)on Protein (U) [Mass/Vol] 16.2 mg/dL High <11.9 [facility] Comment on above: Performed By: #### L 501.1930 ####[facility] [address] [place], [address] Urinalysis, Completeon 02-26 BACTERIA RARE Normal None Seen [facility] Comment on above: Order Comment: CLEAN CATCH Performed By: #### L 502.0300, L400.0001, L500.9400 ####[facility] [address] [place], [address] RBC 0-5 SEEN Normal 0-5 [facility] Comment on above: Order Comment: CLEAN CATCH Performed By: #### L 502.0300, L400.0001, L500.9400 ####[facility] [address] [place], [address] WBC 5-10 SEEN Normal 0-5 [facility] Comment on above: Order Comment: CLEAN CATCH Performed By: #### L 502.0300, L400.0001, L500.9400 ####[facility] [address] [place], [address] EPI,TRANSITION 0-5 SEEN Normal 0-5 [facility] Comment on above: Order Comment: CLEAN CATCH Performed By: #### L 502.0300, L400.0001, L500.9400 ####[facility] [address] [place], [address] EPI,SQUAMOUS 10-25 SEEN Normal 5-10 [facility] Comment on above: Order Comment: CLEAN CATCH Performed By: #### L 502.0300, L400.0001, L500.9400 ####[facility] [address] [place], [address] Mucus Ql (Urine sed) 0 SEEN Normal [facility] Comment on above: Order Comment: CLEAN CATCH Performed By: #### L 502.0300, L400.0001, L500.9400 ####[facility] [address] [place], [address] BACTERIA Normal None Seen [facility] Comment on above: Order Comment: CLEAN CATCH Result Comment: ESTEBAN GED DATE ON ORIGINAL ORDER Performed By: #### L 400.0001 ####[facility] [address] [place], [address] BILIRUBIN URINE Normal Negative [facility] Comment on above: Order Comment: CLEAN CATCH Result Comment: ESTEBAN GED DATE ON ORIGINAL ORDER Performed By: #### L 400.0001 ####[facility] [address] [place], [address] Clarity (U) Normal Clear [facility] Comment on above: Order Comment: CLEAN CATCH Result Comment: ETSEBAN GED DATE ON ORIGINAL ORDER Performed By: #### L 400.0001 ####[facility] [address] [place], [address] Color (U) Normal Yellow [facility] Comment on above: Order Comment: CLEAN CATCH Result Comment: ESTEBAN GED DATE ON ORIGINAL ORDER Performed By: #### L 400.0001 ####[facility] [address] [place], [address] EPI,SQUAMOUS Normal 5-10 [facility] Comment on above: Order Comment: CLEAN CATCH Result Comment: ESTEBAN GED DATE ON ORIGINAL ORDER Performed By: #### L 400.0001 ####[facility] [address] [place], [address] GLUCOSE, UR Normal Normal [facility] Comment on above: Order Comment: CLEAN CATCH Result Comment: ESTEBAN GED DATE ON ORIGINAL ORDER Performed By: #### L 400.0001 ####[facility] [address] [place], [address] KETONE UR Normal Negative [facility] Comment on above: Order Comment: CLEAN CATCH Result Comment: ESTEBAN GED DATE ON ORIGINAL ORDER Performed By: #### L 400.0001 ####[facility] [address] [place], [address] LEUK ESTERASE Normal Negative [facility] Comment on above: Order Comment: CLEAN CATCH Result Comment: ESTEBAN GED DATE ON ORIGINAL ORDER Performed By: #### L 400.0001 ####[facility] [address] [place], [address] Mucus Ql (Urine sed) Normal [facility] Comment on above: Order Comment: CLEAN CATCH Result Comment: ESTEBAN GED DATE ON ORIGINAL ORDER Performed By: #### L 400.0001 ####[facility] [address] [place], [address] Nitrite Ql (U) Normal Negative [facility] Comment on above: Order Comment: CLEAN CATCH Result Comment: ESTEBAN GED DATE ON ORIGINAL ORDER Performed By: #### L 400.0001 ####[facility] [address] [place], [address] OCCULT BLOOD-UR Normal Negative [facility] Comment on above: Order Comment: CLEAN CATCH Result Comment: ESTEBAN GED DATE ON ORIGINAL ORDER Performed By: #### L 400.0001 ####[facility] [address] [place], [address] pH UR Normal 5.0 - 8.0 [facility] Comment on above: Order Comment: CLEAN CATCH Result Comment: ESTEBAN GED DATE ON ORIGINAL ORDER Performed By: #### L 400.0001 ####[facility] [address] [place], [address] PROT DIPSTX Normal Negative [facility] Comment on above: Order Comment: CLEAN CATCH Result Comment: ESTEBAN GED DATE ON ORIGINAL ORDER Performed By: #### L 400.0001 ####[facility] [address] [place], [address] RBC Normal 0-5 [facility] Comment on above: Order Comment: CLEAN CATCH Result Comment: ESTEBAN GED DATE ON ORIGINAL ORDER Performed By: #### L 400.0001 ####[facility] [address] [place], [address] SP.GR. DIPSTX Normal 1.002-1.030 [facility] Comment on above: Order Comment: CLEAN CATCH Result Comment: ESTEBAN GED DATE ON ORIGINAL ORDER Performed By: #### L 400.0001 ####[facility] [address] [place], [address] UR Preservative Normal [facility] Comment on above: Order Comment: CLEAN CATCH Result Comment: ESTEBAN GED DATE ON ORIGINAL ORDER Performed By: #### L 400.0001 ####[facility] [address] [place], [address] UROBILI Normal Normal [facility] Comment on above: Order Comment: CLEAN CATCH Result Comment: ESTEBAN GED DATE ON ORIGINAL ORDER Performed By: #### L 400.0001 ####[facility] [address] [place], [address] WBC Normal 0-5 [facility] Comment on above: Order Comment: CLEAN CATCH Result Comment: ESTEBAN GED DATE ON ORIGINAL ORDER Performed By: #### L 400.0001 ####[facility] [address] [place], [address] Urine Electrolytes- Randomon 02-27-2024 Sodium (U) [Moles/Vol] 80 mmol/L Normal Not Establ. [facility] Comment on above: Result Comment: DUPL ICATE ORDER Performed By: #### L 502.0300, L400.0001, L500.9400 ####[facility] [address] [place], [address] UR CL 90 mmol/L Normal Not Establ. [facility] Comment on above: Result Comment: DUPL ICATE ORDER Performed By: #### L 502.0300, L400.0001, L500.9400 ####[facility] [address] [place], [address] UR K 18.0 mmol/L Normal Not Establ. [facility] Comment on above: Result Comment: DUPL ICATE ORDER Performed By: #### L 502.0300, L400.0001, L500.9400 ####[facility] [address] [place], [address] Basic Metabolic Profile (BMP )on 02-26-2024 BUN/CRE 19.1 RATIO Normal 10-20 [facility] Comment on above: Performed By: #### L 100.0100, L500.2500 ####[facility] [address] [place], [address] CA,Total 8.3 mg/dL Low 8.5-10.1 [facility] Comment on above: Performed By: #### L 100.0100, L500.2500 ####[facility] [address] [place], [address] Chloride [Moles/Vol] 110 mmol/L High 98-107 [facility] Comment on above: Performed By: #### L 100.0100, L500.2500 ####[facility] [address] [place], [address] CO2 [Moles/Vol] 24.0 mmol/L Normal 21.0-32.0 [facility] Comment on above: Performed By: #### L 100.0100, L500.2500 ####[facility] [address] [place], [address] Creatinine [Mass/Vol] 2.57 mg/dL High 0.55-1.02 [facility] Comment on above: Result Comment: The validity of the calculated GFR GFRAA in patients over70 years has not been determined. Clinical correlation isessential. Performed By: #### L 100.0100, L500.2500 ####[facility] [address] [place], [address] ECRCL 25.15 ml/min Normal [facility] Comment on above: Performed By: #### L 100.0100, L500.2500 ####[facility] [address] [place], [address] EST GFR - AA 25 mL/min Low >60 [facility] Comment on above: Result Comment: Afri can [place] GFR Calc Performed By: #### L 100.0100, L500.2500 ####[facility] [address] [place], [address] GAP 7 Normal 5-15 [facility] Comment on above: Performed By: #### L 100.0100, L500.2500 ####[facility] [address] [place], [address] GFR/1.73 sq M.predicted among non-blacks MDRD (S/P/Bld) [Vol rate/Area] 21 mL/min/{1.73_m2} Low >60 [facility] Comment on above: Result Comment: Non- GFR Calc Performed By: #### L 100.0100, L500.2500 ####[facility] [address] [place], [address] Glucose [Mass/Vol] 224 mg/dL High 74-106 [facility] Comment on above: Result Comment: Gluc ose result greater than or equal to 200 mg/dLsuggests DIABETES MELLITUS per A.D.A. criteria. Performed By: #### L 100.0100, L500.2500 ####[facility] [address] [place], [address] Potassium [Moles/Vol] 4.5 mmol/L Normal 3.5-5.1 [facility] Comment on above: Performed By: #### L 100.0100, L500.2500 ####[facility] [address] [place], [address] Sodium [Moles/Vol] 141 mmol/L Normal 136-145 [facility] Comment on above: Performed By: #### L 100.0100, L500.2500 ####[facility] [address] [place], [address] Urea nitrogen [Mass/Vol] 49 mg/dL High 7-18 [facility] Comment on above: Performed By: #### L 100.0100, L500.2500 ####[facility] [address] [place], [address] Bedside Glucoseon 02-26-2024 FINGERSTICK GLU 144 mg/dL High 74-106 [facility] Comment on above: Result Comment: DELLA GEMENT OF PATIENT CARE PER NURSING PROTOCOL Performed By: #### L 501.080 ####[facility] [address] [place], [address] FINGERSTICK GLU 238 mg/dL High 74-106 [facility] Comment on above: Result Comment: DELLA GEMENT OF PATIENT CARE PER NURSING PROTOCOL Performed By: #### L 501.080 ####[facility] [address] [place], [address] FINGERSTICK GLU 342 mg/dL High 74-106 [facility] Comment on above: Result Comment: DELLA GEMENT OF PATIENT CARE PER NURSING PROTOCOL Performed By: #### L 501.080 ####[facility] [address] [place], [address] FINGERSTICK GLU 194 mg/dL High 74-106 [facility] Comment on above: Result Comment: DELLA GEMENT OF PATIENT CARE PER NURSING PROTOCOL Performed By: #### L 501.080 ####[facility] [address] [place], [address] CBC W/Diff, Automatedon 11 Absolute Lymph 0.92 X10 3/uL Normal 0.83-4.51 [facility] Comment on above: Performed By: #### L 100.0100, L500.2500 ####[facility] [address] [place], [address] Absolute Neut 3.9 X10 3/uL Normal 2.0-7.7 [facility] Comment on above: Performed By: #### L 100.0100, L500.2500 ####[facility] [address] [place], [address] Basophils/100 WBC (Bld) 0.5 % Normal 0-1 [facility] Comment on above: Performed By: #### L 100.0100, L500.2500 ####[facility] [address] [place], [address] Eosinophils/100 WBC (Bld) 2.2 % Normal 0-5 [facility] Comment on above: Performed By: #### L 100.0100, L500.2500 ####[facility] [address] [place], [address] Erythrocyte distribution width (RBC) [Ratio] 12.7 % Normal 11.6-14.6 [facility] Comment on above: Performed By: #### L 100.0100, L500.2500 ####[facility] [address] [place], [address] Hematocrit (Bld) [Volume fraction] 37.8 % Normal 37-47 [facility] Comment on above: Performed By: #### L 100.0100, L500.2500 ####[facility] [address] [place], [address] Hemoglobin (Bld) [Mass/Vol] 12.8 g/dL Normal 12.0-15.0 [facility] Comment on above: Performed By: #### L 100.0100, L500.2500 ####[facility] [address] [place], [address] IG% 1.000 High 0.0-0.9 [facility] Comment on above: Result Comment: IG% - Immature Granulocytes (promyelocytes, myelocytes andmetamyelocytes) > 1% indicates that a LEFT SHIFT is Present. Performed By: #### L 100.0100, L500.2500 ####[facility] [address] [place], [address] Lymphocytes/100 WBC (Bld) 15.4 % Low 19-41 [facility] Comment on above: Performed By: #### L 100.0100, L500.2500 ####[facility] [address] [place], [address] MCH (RBC) [Entitic mass] 29.0 pg Normal 27.0-32.0 [facility] Comment on above: Performed By: #### L 100.0100, L500.2500 ####[facility] [address] [place], [address] MCHC (RBC) [Mass/Vol] 33.9 g/dL Normal 32-36 [facility] Comment on above: Performed By: #### L 100.0100, L500.2500 ####[facility] [address] [place], [address] MCV (RBC) [Entitic vol] 85.5 fL Normal 81-99 [facility] Comment on above: Performed By: #### L 100.0100, L500.2500 ####[facility] [address] [place], [address] Monocytes/100 WBC (Bld) 16.6 % High 0-10 [facility] Comment on above: Performed By: #### L 100.0100, L500.2500 ####[facility] [address] [place], [address] Neutrophils/100 WBC (Bld) 64.3 % Normal 47-70 [facility] Comment on above: Performed By: #### L 100.0100, L500.2500 ####[facility] [address] [place], [address] Nucleated RBC (Bld) [#/Vol] 0 10*3/uL Normal 0-5 [facility] Comment on above: Performed By: #### L 100.0100, L500.2500 ####[facility] [address] [place], [address] Platelet mean volume (Bld) [Entitic vol] 11.4 fL Normal 6.2-12.0 [facility] Comment on above: Performed By: #### L 100.0100, L500.2500 ####[facility] [address] [place], [address] Platelets (Bld) [#/Vol] 152 10*3/uL Normal 150-450 [facility] Comment on above: Performed By: #### L 100.0100, L500.2500 ####[facility] [address] [place], [address] RBC (Bld) [#/Vol] 4.42 10*6/uL Normal 4.2-5.4 [facility] Comment on above: Performed By: #### L 100.0100, L500.2500 ####[facility] [address] [place], [address] RDW SD 39.5 fl Normal 35.1-43.9 [facility] Comment on above: Performed By: #### L 100.0100, L500.2500 ####[facility] [address] [place], [address] WBC (Bld) [#/Vol] 6.0 10*3/uL Normal 4.4-11.0 [facility] Comment on above: Performed By: #### L 100.0100, L500.2500 ####[facility] [address] [place], [address] Consultation - Infectious Dx on 02-26-2024 Consultation - Infectious Dx Normal [facility] Vancomycin, Random Levelon 1 04-27-2023 VANCO, RANDOM 28.6 ug/mL High 0.0-15.0 [facility] Comment on above: Result Comment: VANC OMYCIN STANDARD DRUG THERAPY: CRITICAL VALUE IS > 15.0 mg/LVANCOMYCIN HIGH INTENSITY THERAPY: CRITICAL VALUE IS > 20.0 mg/LPLEASE CONTACT PHARMACY SERVICES (#9154) FOR INTERPRETATIONOF RESULTS. THIS RESULT DOES NOT REPRESENT A PEAK OR TROUGHLEVEL FOR THIS DRUG. Performed By: #### L 501.8850 ####[facility] [address] [place], [address] Wound Cultureon 02-26-2024 WC collected in or bone culture right proximal phalyn No growth aerobically. Normal [facility] Comment on above: Performed By: #### M 600.2000, M100.4001, M600.2200, M100.2000, M300.2000, M300.3000, M100.3000 ####[facility] [address] [place], [address] Basic Metabolic Profile (BMP )on 02-25-2024 BUN/CRE 16.7 RATIO Normal 10-20 [facility] Comment on above: Performed By: #### L 500.2500, L100.0100 ####[facility] [address] [place], [address] CA,Total 8.4 mg/dL Low 8.5-10.1 [facility] Comment on above: Performed By: #### L 500.2500, L100.0100 ####[facility] [address] [place], [address] Chloride [Moles/Vol] 105 mmol/L Normal 98-107 [facility] Comment on above: Performed By: #### L 500.2500, L100.0100 ####[facility] [address] [place], [address] CO2 [Moles/Vol] 26.0 mmol/L Normal 21.0-32.0 [facility] Comment on above: Performed By: #### L 500.2500, L100.0100 ####[facility] [address] [place], [address] Creatinine [Mass/Vol] 1.80 mg/dL High 0.55-1.02 [facility] Comment on above: Result Comment: The validity of the calculated GFR GFRAA in patients over70 years has not been determined. Clinical correlation isessential. Performed By: #### L 500.2500, L100.0100 ####[facility] [address] [place], [address] ECRCL 35.42 ml/min Normal [facility] Comment on above: Performed By: #### L 500.2500, L100.0100 ####[facility] [address] [place], [address] EST GFR - AA 38 mL/min Low >60 [facility] Comment on above: Result Comment: Afri can [place] GFR Calc Performed By: #### L 500.2500, L100.0100 ####[facility] [address] [place], [address] GAP 6 Normal 5-15 [facility] Comment on above: Performed By: #### L 500.2500, L100.0100 ####[facility] [address] [place], [address] GFR/1.73 sq M.predicted among non-blacks MDRD (S/P/Bld) [Vol rate/Area] 31 mL/min/{1.73_m2} Low >60 [facility] Comment on above: Result Comment: Non- GFR Calc Performed By: #### L 500.2500, L100.0100 ####[facility] [address] [place], [address] Glucose [Mass/Vol] 298 mg/dL High 74-106 [facility] Comment on above: Result Comment: Gluc ose result greater than or equal to 200 mg/dLsuggests DIABETES MELLITUS per A.D.A. criteria. Performed By: #### L 500.2500, L100.0100 ####[facility] [address] [place], [address] Potassium [Moles/Vol] 4.6 mmol/L Normal 3.5-5.1 [facility] Comment on above: Performed By: #### L 500.2500, L100.0100 ####[facility] [address] [place], [address] Sodium [Moles/Vol] 137 mmol/L Normal 136-145 [facility] Comment on above: Performed By: #### L 500.2500, L100.0100 ####[facility] [address] [place], [address] Urea nitrogen [Mass/Vol] 30 mg/dL High 7-18 [facility] Comment on above: Performed By: #### L 500.2500, L100.0100 ####[facility] [address] [place], [address] Bedside Glucoseon 02-25-2024 FINGERSTICK GLU 457 mg/dL Invalid Interpretation Code 74-106 [facility] Comment on above: Result Comment: Repe at TestMANAGEMENT OF PATIENT CARE PER NURSING PROTOCOL Performed By: #### L 501.080 ####[facility] [address] [place], [address] FINGERSTICK GLU > 500 Invalid Interpretation Code 74-106 [facility] Comment on above: Result Comment: DELLA GEMENT OF PATIENT CARE PER NURSING PROTOCOL Performed By: #### L 501.080 ####[facility] [address] [place], [address] FINGERSTICK GLU 201 mg/dL High [address] [place] [address] Comment on above: Result Comment: DELLA GEMENT OF PATIENT CARE PER NURSING PROTOCOL Performed By: #### L 501.080 ####[facility] [address] [place], [address] FINGERSTICK GLU 180 mg/dL High [address] [place] [address] Comment on above: Result Comment: DELLA GEMENT OF PATIENT CARE PER NURSING PROTOCOL Performed By: #### L 501.080 ####[facility] [address] [place], [address] FINGERSTICK GLU 408 mg/dL High [address] [place] [address] Comment on above: Result Comment: DELLA GEMENT OF PATIENT CARE PER NURSING PROTOCOL Performed By: #### L 501.080 ####[facility] [address] [place], [address] FINGERSTICK GLU 294 mg/dL High [address] [place] [address] Comment on above: Result Comment: DELLA GEMENT OF PATIENT CARE PER NURSING PROTOCOL Performed By: #### L 501.080 ####[facility] [address] [place], [address] CBC W/Diff, Automatedon 11- Absolute Lymph 0.80 X10 3/uL Low 0.83-4.51 [facility] Comment on above: Performed By: #### L 500.2500, L100.0100 ####[facility] [address] [place], [address] Absolute Neut 5.8 X10 3/uL Normal 2.0-7.7 [facility] Comment on above: Performed By: #### L 500.2500, L100.0100 ####[facility] [address] [place], [address] Basophils/100 WBC (Bld) 0.3 % Normal 0-1 [facility] Comment on above: Performed By: #### L 500.2500, L100.0100 ####[facility] [address] [place], [address] Eosinophils/100 WBC (Bld) 1.0 % Normal 0-5 [facility] Comment on above: Performed By: #### L 500.2500, L100.0100 ####[facility] [address] [place], [address] Erythrocyte distribution width (RBC) [Ratio] 12.9 % Normal 11.6-14.6 [facility] Comment on above: Performed By: #### L 500.2500, L100.0100 ####[facility] [address] [place], [address] Hematocrit (Bld) [Volume fraction] 41.8 % Normal 37-47 [facility] Comment on above: Performed By: #### L 500.2500, L100.0100 ####[facility] [address] [place], [address] Hemoglobin (Bld) [Mass/Vol] 13.5 g/dL Normal 12.0-15.0 [facility] Comment on above: Performed By: #### L 500.2500, L100.0100 ####[facility] [address] [place], [address] IG% 1.000 High 0.0-0.9 [facility] Comment on above: Result Comment: IG% - Immature Granulocytes (promyelocytes, myelocytes andmetamyelocytes) > 1% indicates that a LEFT SHIFT is Present. Performed By: #### L 500.2500, L100.0100 ####[facility] [address] [place], [address] Lymphocytes/100 WBC (Bld) 10.2 % Low 19-41 [facility] Comment on above: Performed By: #### L 500.2500, L100.0100 ####[facility] [address] [place], [address] MCH (RBC) [Entitic mass] 28.2 pg Normal 27.0-32.0 [facility] Comment on above: Performed By: #### L 500.2500, L100.0100 ####[facility] [address] [place], [address] MCHC (RBC) [Mass/Vol] 32.3 g/dL Normal 32-36 [facility] Comment on above: Performed By: #### L 500.2500, L100.0100 ####[facility] [address] [place], [address] MCV (RBC) [Entitic vol] 87.4 fL Normal 81-99 [facility] Comment on above: Performed By: #### L 500.2500, L100.0100 ####[facility] [address] [place], [address] Monocytes/100 WBC (Bld) 12.9 % High 0-10 [facility] Comment on above: Performed By: #### L 500.2500, L100.0100 ####[facility] [address] [place], [address] Neutrophils/100 WBC (Bld) 74.6 % High 47-70 [facility] Comment on above: Performed By: #### L 500.2500, L100.0100 ####[facility] [address] [place], [address] Nucleated RBC (Bld) [#/Vol] 0 10*3/uL Normal 0-5 [facility] Comment on above: Performed By: #### L 500.2500, L100.0100 ####[facility] [address] [place], [address] Platelet mean volume (Bld) [Entitic vol] 10.9 fL Normal 6.2-12.0 [facility] Comment on above: Performed By: #### L 500.2500, L100.0100 ####[facility] [address] [place], [address] Platelets (Bld) [#/Vol] 153 10*3/uL Normal 150-450 [facility] Comment on above: Performed By: #### L 500.2500, L100.0100 ####[facility] [address] [place], [address] RBC (Bld) [#/Vol] 4.78 10*6/uL Normal 4.2-5.4 [facility] Comment on above: Performed By: #### L 500.2500, L100.0100 ####[facility] [address] [place], [address] RDW SD 41.1 fl Normal 35.1-43.9 [facility] Comment on above: Performed By: #### L 500.2500, L100.0100 ####[facility] [address] [place], [address] WBC (Bld) [#/Vol] 7.8 10*3/uL Normal 4.4-11.0 [facility] Comment on above: Performed By: #### L 500.2500, L100.0100 ####[facility] [address] [place], [address] Glucoseon 02-25-2024 Glucose [Mass/Vol] 488 mg/dL Invalid Interpretation Code 74-106 [facility] Comment on above: Order Comment: Comme nts: BG [id number] Result Comment: Crit ical Result(s) Called at: 22:52:36 02/25/2024 by: JENNIFER JOE. Results read back by same.Glucose result greater than or equal to 200 mg/dLsuggests DIABETES MELLITUS per A.D.A. criteria. Performed By: #### L 501.0100 ####[facility] [address] [place], [address] Gram Stainon 02-25-2024 GS collected in or bone culture right proximal phalyn Gram Stain Rare Red Blood Cells Rare White Blood Cells No organisms seen Normal [facility] Comment on above: Performed By: #### M 600.2000, M100.4001, M600.2200, M100.2000, M300.2000, M300.3000, M100.3000 ####[facility] [address] [place], [address] MR/DRNPBSGF5ja 02-25-2024 MR/POSTOPAN2 Normal [facility] Vancomycin, Trough Levelon 1 04-26-2023 VANCO, TROUGH 37.5 ug/mL High 5.0-15.0 [facility] Comment on above: Order Comment: Comme nts: DRAW 30 MIN PRIOR TO [id number] Result Comment: VANC OMYCIN STANDARED DRUG THERAPY TROUGH LEVEL: 5.0 - 15.0 mg/LVANCOMYCIN HIGH INTENSITY THERAPY TROUGH LEVEL: 15.0 - 20.0 mg/LHigh Intensity therapy recommended for serious lifethreatening infections include:- Wcddmlvduu-Dqnkaecjipwd-Exzouxktt (Ventilator/Healtcare Associated)-SepsisPLEASE CONTACT PHARMACY SERVICES (#5057) FOR INTERPRETATIONOF RESULTS. Performed By: #### L 501.8820 ####[facility] [address] [place], [address] 12 Lead EKGon 02-24-2024 12 Lead EKG Normal [facility] Basic Metabolic Profile (BMP )on 02-24-2024 BUN/CRE 24.6 RATIO High 10-20 [facility] Comment on above: Performed By: #### L 100.0100, L500.2500 ####[facility] [address] [place], [address] CA,Total 8.6 mg/dL Normal 8.5-10.1 [facility] Comment on above: Performed By: #### L 100.0100, L500.2500 ####[facility] [address] [place], [address] Chloride [Moles/Vol] 104 mmol/L Normal 98-107 [facility] Comment on above: Performed By: #### L 100.0100, L500.2500 ####[facility] [address] [place], [address] CO2 [Moles/Vol] 29.0 mmol/L Normal 21.0-32.0 [facility] Comment on above: Performed By: #### L 100.0100, L500.2500 ####[facility] [address] [place], [address] Creatinine [Mass/Vol] 0.73 mg/dL Normal 0.55-1.02 [facility] Comment on above: Result Comment: The validity of the calculated GFR GFRAA in patients over70 years has not been determined. Clinical correlation isessential. Performed By: #### L 100.0100, L500.2500 ####[facility] [address] [place], [address] ECRCL 80.20 ml/min Normal [facility] Comment on above: Performed By: #### L 100.0100, L500.2500 ####[facility] [address] [place], [address] EST GFR - AA 107 mL/min Normal >60 [facility] Comment on above: Result Comment: Afri can [place] GFR Calc Performed By: #### L 100.0100, L500.2500 ####[facility] [address] [place], [address] GAP 5 Normal 5-15 [facility] Comment on above: Performed By: #### L 100.0100, L500.2500 ####[facility] [address] [place], [address] GFR/1.73 sq M.predicted among non-blacks MDRD (S/P/Bld) [Vol rate/Area] 88 mL/min/{1.73_m2} Normal >60 [facility] Comment on above: Result Comment: Non- GFR Calc Performed By: #### L 100.0100, L500.2500 ####[facility] [address] [place], [address] Glucose [Mass/Vol] 435 mg/dL High 74-106 [facility] Comment on above: Result Comment: Gluc ose result greater than or equal to 200 mg/dLsuggests DIABETES MELLITUS per A.D.A. criteria. Performed By: #### L 100.0100, L500.2500 ####[facility] [address] [place], [address] Potassium [Moles/Vol] 3.8 mmol/L Normal 3.5-5.1 [facility] Comment on above: Performed By: #### L 100.0100, L500.2500 ####[facility] [address] [place], [address] Sodium [Moles/Vol] 138 mmol/L Normal 136-145 [facility] Comment on above: Performed By: #### L 100.0100, L500.2500 ####[facility] [address] [place], [address] Urea nitrogen [Mass/Vol] 18 mg/dL Normal 7-18 [facility] Comment on above: Performed By: #### L 100.0100, L500.2500 ####[facility] [address] [place], [address] Bedside Glucoseon 02-24-2024 FINGERSTICK GLU 393 mg/dL High 74-106 [facility] Comment on above: Result Comment: DELLA COX OF PATIENT CARE PER NURSING PROTOCOL Performed By: #### L 501.080 ####[facility] [address] [place], [address] FINGERSTICK GLU 264 mg/dL High [address] [place] [address] Comment on above: Result Comment: DELLA GEMENT OF PATIENT CARE PER NURSING PROTOCOL Performed By: #### L 501.080 ####[facility] [address] [place], [address] FINGERSTICK GLU 230 mg/dL High -106 [facility] Comment on above: Result Comment: DELLA GEMENT OF PATIENT CARE PER NURSING PROTOCOL Performed By: #### L 501.080 ####[facility] [address] [place], [address] FINGERSTICK GLU 229 mg/dL High [address] [place] [address] Comment on above: Result Comment: DELLA GEMENT OF PATIENT CARE PER NURSING PROTOCOL Performed By: #### L 501.080 ####[facility] [address] [place], [address] FINGERSTICK GLU 409 mg/dL High [address] [place] [address] Comment on above: Result Comment: DELLA GEMENT OF PATIENT CARE PER NURSING PROTOCOL Performed By: #### L 501.080 ####[facility] [address] [place], [address] CBC W/Diff, Automatedon 02-13 Absolute Lymph 1.02 X10 3/uL Normal 0.83-4.51 [facility] Comment on above: Performed By: #### L 100.0100, L500.2500 ####[facility] [address] [place], [address] Absolute Neut 3.4 X10 3/uL Normal 2.0-7.7 [facility] Comment on above: Performed By: #### L 100.0100, L500.2500 ####[facility] [address] [place], [address] Basophils/100 WBC (Bld) 0.4 % Normal 0-1 [facility] Comment on above: Performed By: #### L 100.0100, L500.2500 ####[facility] [address] [place], [address] Eosinophils/100 WBC (Bld) 2.5 % Normal 0-5 [facility] Comment on above: Performed By: #### L 100.0100, L500.2500 ####[facility] [address] [place], [address] Erythrocyte distribution width (RBC) [Ratio] 13.0 % Normal 11.6-14.6 [facility] Comment on above: Performed By: #### L 100.0100, L500.2500 ####[facility] [address] [place], [address] Hematocrit (Bld) [Volume fraction] 40.6 % Normal 37-47 [facility] Comment on above: Performed By: #### L 100.0100, L500.2500 ####[facility] [address] [place], [address] Hemoglobin (Bld) [Mass/Vol] 13.2 g/dL Normal 12.0-15.0 [facility] Comment on above: Performed By: #### L 100.0100, L500.2500 ####[facility] [address] [place], [address] IG% 1.000 High 0.0-0.9 [facility] Comment on above: Result Comment: IG% - Immature Granulocytes (promyelocytes, myelocytes andmetamyelocytes) > 1% indicates that a LEFT SHIFT is Present. Performed By: #### L 100.0100, L500.2500 ####[facility] [address] [place], [address] Lymphocytes/100 WBC (Bld) 19.7 % Normal 19-41 [facility] Comment on above: Performed By: #### L 100.0100, L500.2500 ####[facility] [address] [place], [address] MCH (RBC) [Entitic mass] 28.3 pg Normal 27.0-32.0 [facility] Comment on above: Performed By: #### L 100.0100, L500.2500 ####[facility] [address] [place], [address] MCHC (RBC) [Mass/Vol] 32.5 g/dL Normal 32-36 [facility] Comment on above: Performed By: #### L 100.0100, L500.2500 ####[facility] [address] [place], [address] MCV (RBC) [Entitic vol] 86.9 fL Normal 81-99 [facility] Comment on above: Performed By: #### L 100.0100, L500.2500 ####[facility] [address] [place], [address] Monocytes/100 WBC (Bld) 11.2 % High 0-10 [facility] Comment on above: Performed By: #### L 100.0100, L500.2500 ####[facility] [address] [place], [address] Neutrophils/100 WBC (Bld) 65.2 % Normal 47-70 [facility] Comment on above: Performed By: #### L 100.0100, L500.2500 ####[facility] [address] [place], [address] Nucleated RBC (Bld) [#/Vol] 0 10*3/uL Normal 0-5 [facility] Comment on above: Performed By: #### L 100.0100, L500.2500 ####[facility] [address] [place], [address] Platelet mean volume (Bld) [Entitic vol] 10.8 fL Normal 6.2-12.0 [facility] Comment on above: Performed By: #### L 100.0100, L500.2500 ####[facility] [address] [place], [address] Platelets (Bld) [#/Vol] 160 10*3/uL Normal 150-450 [facility] Comment on above: Performed By: #### L 100.0100, L500.2500 ####[facility] [address] [place], [address] RBC (Bld) [#/Vol] 4.67 10*6/uL Normal 4.2-5.4 [facility] Comment on above: Performed By: #### L 100.0100, L500.2500 ####[facility] [address] [place], [address] RDW SD 40.4 fl Normal 35.1-43.9 [facility] Comment on above: Performed By: #### L 100.0100, L500.2500 ####[facility] [address] [place], [address] WBC (Bld) [#/Vol] 5.2 10*3/uL Normal 4.4-11.0 [facility] Comment on above: Performed By: #### L 100.0100, L500.2500 ####[facility] [address] [place], [address] Decalcification bone/plaqueo n 02-24-2024 Decalcification bone/plaque Normal [facility] Comment on above: Performed By: #### P DEC ####[facility] [address] [place], [address] Foot min 3 Viewson 4 Foot min 3 Views Normal [facility] Hemoglobin A1con 02-24-2024 HbA1c (Bld) [Mass fraction] 11.2 % High 3.8-5.6 [facility] Comment on above: Result Comment: Norm al < 5.7 % Prediabetic 5.7 - 6.4 % Diabetic >or= 6.5 % Please note range changes. Performed By: #### L 501.9985, L300.4310 ####[facility] [address] [place], [address] MR/POSTOP.ANEon 02-24-2024 MR/POSTOP.ANE Normal [facility] Operative Reporton Operative Report Normal [facility] Partial Thromboplast Timeon 02-24-2024 aPTT Coag (Bld) [Time] 30.8 s Normal 24.1-36.2 [facility] Comment on above: Performed By: #### L 501.9985, L300.4310 ####[facility] [address] [place], [address] Urine Drug Screen (VISTA)on 02-24-2024 AMPHETAMINES Negative Normal <1000 ng/mL [facility] Comment on above: Order Comment: NOTIF IED MS3 NURSE SIGNALER THAT WE DO NOT HAVE A PLAINYELLOW TOP URINE TUBE FOR THIS TESTUNK Performed By: #### L 505.5000 ####[facility] [address] [place], [address] BARBITIURATES Negative Normal < 200 ng/mL [facility] Comment on above: Order Comment: NOTIF IED MS3 NURSE SIGNALER THAT WE DO NOT HAVE A PLAINYELLOW TOP URINE TUBE FOR THIS TESTUNK Performed By: #### L 505.5000 ####[facility] [address] [place], [address] BENZODIAZIPINE Negative Normal < 200 ng/mL [facility] Comment on above: Order Comment: NOTIF IED MS3 NURSE SIGNALER THAT WE DO NOT HAVE A PLAINYELLOW TOP URINE TUBE FOR THIS TESTUNK Performed By: #### L 505.5000 ####[facility] [address] [place], [address] COCAINE Negative Normal < 300 ng/mL [facility] Comment on above: Order Comment: NOTIF [facility] NURSE SIGNALER THAT WE DO NOT HAVE A PLAINYELLOW TOP URINE TUBE FOR THIS TESTUNK Performed By: #### L 505.5000 ####[facility] [address] [place], [address] ECSTACY Negative Normal < 500 ng/mL [facility] Comment on above: Order Comment: NOTIF [facility] NURSE SIGNALER THAT WE DO NOT HAVE A PLAINYELLOW TOP URINE TUBE FOR THIS TESTUNK Performed By: #### L 505.5000 ####[facility] [address] [place], [address] METHADONE Negative Normal < 300 ng/mL [facility] Comment on above: Order Comment: NOTIF [place] [address] NURSE SIGNALER THAT WE DO NOT HAVE A PLAINYELLOW TOP URINE TUBE FOR THIS TESTUNK Performed By: #### L 505.5000 ####[facility] [address] [place], [address] OPIATES Positive Abnormal < 300 ng/mL [facility] Comment on above: Order Comment: NOTIF [place] [address] NURSE SIGNALER THAT WE DO NOT HAVE A PLAINYELLOW TOP URINE TUBE FOR THIS TESTUNK Performed By: #### L 505.5000 ####[facility] [address] [place], [address] PCP Negative Normal < 25 ng/mL [facility] Comment on above: Order Comment: NOTIF [place] [address] NURSE SIGNALER THAT WE DO NOT HAVE A PLAINYELLOW TOP URINE TUBE FOR THIS TESTUNK Performed By: #### L 505.5000 ####[facility] [address] [facility] [address] THC Negative Normal < 50 ng/mL [facility] Comment on above: Order Comment: NOTIF [place] [address] NURSE SIGNALER THAT WE DO NOT HAVE A PLAINYELLOW TOP URINE TUBE FOR THIS TESTUNK Performed By: #### L 505.5000 ####[facility] [address] [place], [address] VISTA UDS PH 5 Normal [facility] Comment on above: Order Comment: NOTIF IED MS3 NURSE SIGNALER THAT WE DO NOT HAVE A PLAINYELLOW TOP URINE TUBE FOR THIS TESTUNK Performed By: #### L 505.5000 ####[facility] [address] [place], [address] Wound Cultureon 02-24-2024 WC Normal [facility] Comment on above: Performed By: #### M 100.3000, M100.2000 ####[facility] [address] [place], [address] Basic Metabolic Profile (BMP )on 02-23-2024 BUN/CRE 32.4 RATIO High 10-20 [facility] Comment on above: Performed By: #### L 100.0100, L500.2500 ####[facility] [address] [place], [address] CA,Total 8.5 mg/dL Normal 8.5-10.1 [facility] Comment on above: Performed By: #### L 100.0100, L500.2500 ####[facility] [address] [place], [address] Chloride [Moles/Vol] 108 mmol/L High 98-107 [facility] Comment on above: Performed By: #### L 100.0100, L500.2500 ####[facility] [address] [place], [address] CO2 [Moles/Vol] 29.0 mmol/L Normal 21.0-32.0 [facility] Comment on above: Performed By: #### L 100.0100, L500.2500 ####[facility] [address] [place], [address] Creatinine [Mass/Vol] 0.43 mg/dL Low 0.55-1.02 [facility] Comment on above: Result Comment: The validity of the calculated GFR GFRAA in patients over70 years has not been determined. Clinical correlation isessential. Performed By: #### L 100.0100, L500.2500 ####[facility] [address] [place], [address] ECRCL 136.15 ml/min Normal [facility] Comment on above: Performed By: #### L 100.0100, L500.2500 ####[facility] [address] [place], [address] EST GFR - AA 196 mL/min Normal >60 [facility] Comment on above: Result Comment: Afri can [place] GFR Calc Performed By: #### L 100.0100, L500.2500 ####[facility] [address] [place], [address] GAP 5 Normal 5-15 [facility] Comment on above: Performed By: #### L 100.0100, L500.2500 ####[facility] [address] [place], [address] GFR/1.73 sq M.predicted among non-blacks MDRD (S/P/Bld) [Vol rate/Area] 162 mL/min/{1.73_m2} Normal >60 [facility] Comment on above: Result Comment: Non- GFR Calc Performed By: #### L 100.0100, L500.2500 ####[facility] [address] [place], [address] Glucose [Mass/Vol] 198 mg/dL High 74-106 [facility] Comment on above: Result Comment: Fast ing Glucose result greater than or equal to 126 mg/dLsuggests DIABETES MELLITUS per A.D.A. criteria. Performed By: #### L 100.0100, L500.2500 ####[facility] [address] [place], [address] Potassium [Moles/Vol] 3.4 mmol/L Low 3.5-5.1 [facility] Comment on above: Performed By: #### L 100.0100, L500.2500 ####[facility] [address] [place], [address] Sodium [Moles/Vol] 142 mmol/L Normal 136-145 [facility] Comment on above: Performed By: #### L 100.0100, L500.2500 ####[facility] [address] [place], [address] Urea nitrogen [Mass/Vol] 14 mg/dL Normal 7-18 [facility] Comment on above: Performed By: #### L 100.0100, L500.2500 ####[facility] [address] [place], [address] Bedside Glucoseon 02-23-2024 FINGERSTICK GLU 291 mg/dL High 74-106 [facility] Comment on above: Result Comment: DELLA GEMENT OF PATIENT CARE PER NURSING PROTOCOL Performed By: #### L 501.080 ####[facility] [address] [place], [address] FINGERSTICK GLU 330 mg/dL High 74-106 [facility] Comment on above: Result Comment: DELLA GEMENT OF PATIENT CARE PER NURSING PROTOCOL Performed By: #### L 501.080 ####[facility] [address] [place], [address] FINGERSTICK GLU 280 mg/dL High 74-106 [facility] Comment on above: Result Comment: DELLA GEMENT OF PATIENT CARE PER NURSING PROTOCOL Performed By: #### L 501.080 ####[facility] [address] [place], [address] CBC W/Diff, Automatedon 11- Absolute Lymph 1.43 X10 3/uL Normal 0.83-4.51 [facility] Comment on above: Performed By: #### L 100.0100, L500.2500 ####[facility] [address] [place], [address] Absolute Neut 2.0 X10 3/uL Normal 2.0-7.7 [facility] Comment on above: Performed By: #### L 100.0100, L500.2500 ####[facility] [address] [place], [address] Basophils/100 WBC (Bld) 1.0 % Normal 0-1 [facility] Comment on above: Performed By: #### L 100.0100, L500.2500 ####[facility] [address] [place], [address] Eosinophils/100 WBC (Bld) 3.8 % Normal 0-5 [facility] Comment on above: Performed By: #### L 100.0100, L500.2500 ####[facility] [address] [place], [address] Erythrocyte distribution width (RBC) [Ratio] 12.9 % Normal 11.6-14.6 [facility] Comment on above: Performed By: #### L 100.0100, L500.2500 ####[facility] [address] [place], [address] Hematocrit (Bld) [Volume fraction] 40.9 % Normal 37-47 [facility] Comment on above: Performed By: #### L 100.0100, L500.2500 ####[facility] [address] [place], [address] Hemoglobin (Bld) [Mass/Vol] 13.4 g/dL Normal 12.0-15.0 [facility] Comment on above: Performed By: #### L 100.0100, L500.2500 ####[facility] [address] [place], [address] IG% 1.700 High 0.0-0.9 [facility] Comment on above: Result Comment: IG% - Immature Granulocytes (promyelocytes, myelocytes andmetamyelocytes) > 1% indicates that a LEFT SHIFT is Present. Performed By: #### L 100.0100, L500.2500 ####[facility] [address] [place], [address] Lymphocytes/100 WBC (Bld) 34.4 % Normal 19-41 [facility] Comment on above: Performed By: #### L 100.0100, L500.2500 ####[facility] [address] [place], [address] MCH (RBC) [Entitic mass] 28.6 pg Normal 27.0-32.0 [facility] Comment on above: Performed By: #### L 100.0100, L500.2500 ####[facility] [address] [place], [address] MCHC (RBC) [Mass/Vol] 32.8 g/dL Normal 32-36 [facility] Comment on above: Performed By: #### L 100.0100, L500.2500 ####[facility] [address] [place], [address] MCV (RBC) [Entitic vol] 87.4 fL Normal 81-99 [facility] Comment on above: Performed By: #### L 100.0100, L500.2500 ####[facility] [address] [place], [address] Monocytes/100 WBC (Bld) 10.1 % High 0-10 [facility] Comment on above: Performed By: #### L 100.0100, L500.2500 ####[facility] [address] [place], [address] Neutrophils/100 WBC (Bld) 49.0 % Normal 47-70 [facility] Comment on above: Performed By: #### L 100.0100, L500.2500 ####[facility] [address] [place], [address] Nucleated RBC (Bld) [#/Vol] 0 10*3/uL Normal 0-5 [facility] Comment on above: Performed By: #### L 100.0100, L500.2500 ####[facility] [address] [place], [address] Platelet mean volume (Bld) [Entitic vol] 10.6 fL Normal 6.2-12.0 [facility] Comment on above: Performed By: #### L 100.0100, L500.2500 ####[facility] [address] [place], [address] Platelets (Bld) [#/Vol] 192 10*3/uL Normal 150-450 [facility] Comment on above: Performed By: #### L 100.0100, L500.2500 ####[facility] [address] [place], [address] RBC (Bld) [#/Vol] 4.68 10*6/uL Normal 4.2-5.4 [facility] Comment on above: Performed By: #### L 100.0100, L500.2500 ####[facility] [address] [place], [address] RDW SD 40.6 fl Normal 35.1-43.9 [facility] Comment on above: Performed By: #### L 100.0100, L500.2500 ####[facility] [address] [place], [address] WBC (Bld) [#/Vol] 4.2 10*3/uL Low 4.4-11.0 [facility] Comment on above: Performed By: #### L 100.0100, L500.2500 ####[facility] [address] [place], [address] Vancomycin, Trough Levelon 1 04-24-2023 VANCO, TROUGH 16.3 ug/mL High 5.0-15.0 [facility] Comment on above: Order Comment: Comme nts: DRAW 30 MIN PRIOR TO [id number] Result Comment: VANC OMYCIN STANDARED DRUG THERAPY TROUGH LEVEL: 5.0 - 15.0 mg/LVANCOMYCIN HIGH INTENSITY THERAPY TROUGH LEVEL: 15.0 - 20.0 mg/LHigh Intensity therapy recommended for serious lifethreatening infections include:- Vmzqabkgar-Bwnawlafsmbb-Frbueupxs (Ventilator/Healtcare Associated)-SepsisPLEASE CONTACT PHARMACY SERVICES (#3518) FOR INTERPRETATIONOF RESULTS. Performed By: #### L 501.8820 ####[facility] [address] [place], [address] Basic Metabolic Profile (BMP )on 02-22-2024 BUN/CRE 29.0 RATIO High 10-20 [facility] Comment on above: Performed By: #### L 100.0100, L500.2500 ####[facility] [address] [place], [address] CA,Total 8.6 mg/dL Normal 8.5-10.1 [facility] Comment on above: Performed By: #### L 100.0100, L500.2500 ####[facility] [address] [place], [address] Chloride [Moles/Vol] 108 mmol/L High 98-107 [facility] Comment on above: Performed By: #### L 100.0100, L500.2500 ####[facility] [address] [place], [address] CO2 [Moles/Vol] 28.0 mmol/L Normal 21.0-32.0 [facility] Comment on above: Performed By: #### L 100.0100, L500.2500 ####[facility] [address] [place], [address] Creatinine [Mass/Vol] 0.45 mg/dL Low 0.55-1.02 [facility] Comment on above: Result Comment: The validity of the calculated GFR GFRAA in patients over70 years has not been determined. Clinical correlation isessential. Performed By: #### L 100.0100, L500.2500 ####[facility] [address] [place], [address] ECRCL 130.10 ml/min Normal [facility] Comment on above: Performed By: #### L 100.0100, L500.2500 ####[facility] [address] [place], [address] EST GFR - AA 188 mL/min Normal >60 [facility] Comment on above: Result Comment: Afri can [place] GFR Calc Performed By: #### L 100.0100, L500.2500 ####[facility] [address] [place], [address] GAP 4 Low 5-15 [facility] Comment on above: Performed By: #### L 100.0100, L500.2500 ####[facility] [address] [place], [address] GFR/1.73 sq M.predicted among non-blacks MDRD (S/P/Bld) [Vol rate/Area] 156 mL/min/{1.73_m2} Normal >60 [facility] Comment on above: Result Comment: Non- GFR Calc Performed By: #### L 100.0100, L500.2500 ####[facility] [address] [place], [address] Glucose [Mass/Vol] 287 mg/dL High 74-106 [facility] Comment on above: Result Comment: Gluc ose result greater than or equal to 200 mg/dLsuggests DIABETES MELLITUS per A.D.A. criteria. Performed By: #### L 100.0100, L500.2500 ####[facility] [address] [place], [address] Potassium [Moles/Vol] 3.7 mmol/L Normal 3.5-5.1 [facility] Comment on above: Performed By: #### L 100.0100, L500.2500 ####[facility] [address] [place], [address] Sodium [Moles/Vol] 140 mmol/L Normal 136-145 [facility] Comment on above: Performed By: #### L 100.0100, L500.2500 ####[facility] [address] [place], [address] Urea nitrogen [Mass/Vol] 13 mg/dL Normal 7-18 [facility] Comment on above: Performed By: #### L 100.0100, L500.2500 ####[facility] [address] [place], [address] Bedside Glucoseon 02-22-2024 FINGERSTICK GLU 309 mg/dL High 74-106 [facility] Comment on above: Result Comment: DELLA GEMENT OF PATIENT CARE PER NURSING PROTOCOL Performed By: #### L 501.080 ####[facility] [address] [place], [address] FINGERSTICK GLU 297 mg/dL High 74-[address] [place] [address] Comment on above: Result Comment: DELLA GEMENT OF PATIENT CARE PER NURSING PROTOCOL Performed By: #### L 501.080 ####[facility] [address] [place], [address] FINGERSTICK GLU 387 mg/dL High 74-106 [facility] Comment on above: Result Comment: DELLA GEMENT OF PATIENT CARE PER NURSING PROTOCOL Performed By: #### L 501.080 ####[facility] [address] [place], [address] FINGERSTICK GLU 417 mg/dL High -106 [facility] Comment on above: Result Comment: DELLA GEMENT OF PATIENT CARE PER NURSING PROTOCOL Performed By: #### L 501.080 ####[facility] [address] [place], [address] CBC W/Diff, Automatedon 11-0 9-2023 Absolute Lymph 1.09 X10 3/uL Normal 0.83-4.51 [facility] Comment on above: Performed By: #### L 100.0100, L500.2500 ####[facility] [address] [place], [address] Absolute Neut 2.7 X10 3/uL Normal 2.0-7.7 [facility] Comment on above: Performed By: #### L 100.0100, L500.2500 ####[facility] [address] [place], [address] Basophils/100 WBC (Bld) 0.7 % Normal 0-1 [facility] Comment on above: Performed By: #### L 100.0100, L500.2500 ####[facility] [address] [place], [address] Eosinophils/100 WBC (Bld) 3.1 % Normal 0-5 [facility] Comment on above: Performed By: #### L 100.0100, L500.2500 ####[facility] [address] [place], [address] Erythrocyte distribution width (RBC) [Ratio] 12.7 % Normal 11.6-14.6 [facility] Comment on above: Performed By: #### L 100.0100, L500.2500 ####[facility] [address] [place], [address] Hematocrit (Bld) [Volume fraction] 40.8 % Normal 37-47 [facility] Comment on above: Performed By: #### L 100.0100, L500.2500 ####[facility] [address] [place], [address] Hemoglobin (Bld) [Mass/Vol] 13.6 g/dL Normal 12.0-15.0 [facility] Comment on above: Performed By: #### L 100.0100, L500.2500 ####[facility] [address] [place], [address] IG% 0.900 Normal 0.0-0.9 [facility] Comment on above: Result Comment: IG% - Immature Granulocytes (promyelocytes, myelocytes andmetamyelocytes) > 1% indicates that a LEFT SHIFT is Present. Performed By: #### L 100.0100, L500.2500 ####[facility] [address] [place], [address] Lymphocytes/100 WBC (Bld) 24.2 % Normal 19-41 [facility] Comment on above: Performed By: #### L 100.0100, L500.2500 ####[facility] [address] [place], [address] MCH (RBC) [Entitic mass] 28.8 pg Normal 27.0-32.0 [facility] Comment on above: Performed By: #### L 100.0100, L500.2500 ####[facility] [address] [place], [address] MCHC (RBC) [Mass/Vol] 33.3 g/dL Normal 32-36 [facility] Comment on above: Performed By: #### L 100.0100, L500.2500 ####[facility] [address] [place], [address] MCV (RBC) [Entitic vol] 86.3 fL Normal 81-99 [facility] Comment on above: Performed By: #### L 100.0100, L500.2500 ####[facility] [address] [place], [address] Monocytes/100 WBC (Bld) 10.4 % High 0-10 [facility] Comment on above: Performed By: #### L 100.0100, L500.2500 ####[facility] [address] [place], [address] Neutrophils/100 WBC (Bld) 60.7 % Normal 47-70 [facility] Comment on above: Performed By: #### L 100.0100, L500.2500 ####[facility] [address] [place], [address] Nucleated RBC (Bld) [#/Vol] 0 10*3/uL Normal 0-5 [facility] Comment on above: Performed By: #### L 100.0100, L500.2500 ####[facility] [address] [place], [address] Platelet mean volume (Bld) [Entitic vol] 11.0 fL Normal 6.2-12.0 [facility] Comment on above: Performed By: #### L 100.0100, L500.2500 ####[facility] [address] [place], [address] Platelets (Bld) [#/Vol] 180 10*3/uL Normal 150-450 [facility] Comment on above: Performed By: #### L 100.0100, L500.2500 ####[facility] [address] [place], [address] RBC (Bld) [#/Vol] 4.73 10*6/uL Normal 4.2-5.4 [facility] Comment on above: Performed By: #### L 100.0100, L500.2500 ####[facility] [address] [place], [address] RDW SD 39.8 fl Normal 35.1-43.9 [facility] Comment on above: Performed By: #### L 100.0100, L500.2500 ####[facility] [address] [place], [address] WBC (Bld) [#/Vol] 4.5 10*3/uL Normal 4.4-11.0 [facility] Comment on above: Performed By: #### L 100.0100, L500.2500 ####[facility] [address] [place], [address] Lower Ext Art Exam w/o Exerc shanthi 02-22-2024 Lower Ext Art Exam w/o Exercis Normal [facility] Vancomycin, Trough Levelon 1 04-23-2023 VANCO, TROUGH 6.9 ug/mL Normal 5.0-15.0 [facility] Comment on above: Order Comment: Comme nts: Trough to be drawn 30 mins prior to scheduled [id number] Result Comment: VANC OMYCIN STANDARED DRUG THERAPY TROUGH LEVEL: 5.0 - 15.0 mg/LVANCOMYCIN HIGH INTENSITY THERAPY TROUGH LEVEL: 15.0 - 20.0 mg/LHigh Intensity therapy recommended for serious lifethreatening infections include:- Huivujveou-Gyvyqetmgxsb-Vbjmfmiwh (Ventilator/Healtcare Associated)-SepsisPLEASE CONTACT PHARMACY SERVICES (#9143) FOR INTERPRETATIONOF RESULTS. Performed By: #### L 501.8820 ####[facility] [address] [place], [address] Acetone Serumon 02-21-2024 ACETONE SERUM Negative Normal NEG [facility] Comment on above: Performed By: #### L 501.6900 ####[facility] [address] [place], [address] Basic Metabolic Profile (BMP )on 02-21-2024 BUN/CRE 19.6 RATIO Normal 10-20 [facility] Comment on above: Performed By: #### L 501.6710, L503.6005, L101.9900, L500.2500, L300.3900, L100.0100 ####[facility] [address] [place], [address] CA,Total 8.7 mg/dL Normal 8.5-10.1 [facility] Comment on above: Performed By: #### L 501.6710, L503.6005, L101.9900, L500.2500, L300.3900, L100.0100 ####[facility] [address] [place], [address] Chloride [Moles/Vol] 100 mmol/L Normal 98-107 [facility] Comment on above: Performed By: #### L 501.6710, L503.6005, L101.9900, L500.2500, L300.3900, L100.0100 ####[facility] [address] [place], [address] CO2 [Moles/Vol] 27.0 mmol/L Normal 21.0-32.0 [facility] Comment on above: Performed By: #### L 501.6710, L503.6005, L101.9900, L500.2500, L300.3900, L100.0100 ####[facility] [address] [place], [address] Creatinine [Mass/Vol] 0.76 mg/dL Normal 0.55-1.02 [facility] Comment on above: Result Comment: The validity of the calculated GFR GFRAA in patients over70 years has not been determined. Clinical correlation isessential. Performed By: #### L 501.6710, L503.6005, L101.9900, L500.2500, L300.3900, L100.0100 ####[facility] [address] [place], [address] ECRCL 77.03 ml/min Normal [facility] Comment on above: Performed By: #### L 501.6710, L503.6005, L101.9900, L500.2500, L300.3900, L100.0100 ####[facility] [address] [place], [address] EST GFR - AA 102 mL/min Normal >60 [facility] Comment on above: Result Comment: Afri can [place] GFR Calc Performed By: #### L 501.6710, L503.6005, L101.9900, L500.2500, L300.3900, L100.0100 ####[facility] [address] [place], [address] GAP 7 Normal 5-15 [facility] Comment on above: Performed By: #### L 501.6710, L503.6005, L101.9900, L500.2500, L300.3900, L100.0100 ####[facility] [address] [place], [address] GFR/1.73 sq M.predicted among non-blacks MDRD (S/P/Bld) [Vol rate/Area] 84 mL/min/{1.73_m2} Normal >60 [facility] Comment on above: Result Comment: Non- GFR Calc Performed By: #### L 501.6710, L503.6005, L101.9900, L500.2500, L300.3900, L100.0100 ####[facility] [address] [place], [address] Glucose [Mass/Vol] 478 mg/dL Invalid Interpretation Code 74-106 [facility] Comment on above: Result Comment: Crit ical Result(s) Called at: 00:24:56 02/21/2024 by:Sylvester Mejia SHUFFTracee. Results read back by same.Glucose result greater than or equal to 200 mg/dLsuggests DIABETES MELLITUS per A.D.A. criteria. Performed By: #### L 501.6710, L503.6005, L101.9900, L500.2500, L300.3900, L100.0100 ####[facility] [address] [place], [address] Potassium [Moles/Vol] 3.6 mmol/L Normal 3.5-5.1 [facility] Comment on above: Performed By: #### L 501.6710, L503.6005, L101.9900, L500.2500, L300.3900, L100.0100 ####[facility] [address] [place], [address] Sodium [Moles/Vol] 134 mmol/L Low 136-145 [facility] Comment on above: Performed By: #### L 501.6710, L503.6005, L101.9900, L500.2500, L300.3900, L100.0100 ####[facility] [address] [place], [address] Urea nitrogen [Mass/Vol] 15 mg/dL Normal 7-18 [facility] Comment on above: Performed By: #### L 501.6710, L503.6005, L101.9900, L500.2500, L300.3900, L100.0100 ####[facility] [address] [place], [address] Bedside Glucoseon 02-21-2024 FINGERSTICK GLU 357 mg/dL High 74-106 [facility] Comment on above: Result Comment: DELLA GEMENT OF PATIENT CARE PER NURSING PROTOCOL Performed By: #### L 501.080 ####[facility] [address] [place], [address] FINGERSTICK GLU 311 mg/dL High 74-106 [facility] Comment on above: Result Comment: DELLA GEMENT OF PATIENT CARE PER NURSING PROTOCOL Performed By: #### L 501.080 ####[facility] [address] [place], [address] FINGERSTICK GLU 213 mg/dL High 74-106 [facility] Comment on above: Result Comment: DELLA GEMENT OF PATIENT CARE PER NURSING PROTOCOL Performed By: #### L 501.080 ####[facility] [address] [place], [address] FINGERSTICK GLU 408 mg/dL High 74-106 [facility] Comment on above: Result Comment: DELLA GEMENT OF PATIENT CARE PER NURSING PROTOCOL Performed By: #### L 501.080 ####[facility] [address] [place], [address] FINGERSTICK GLU 376 mg/dL High 74-106 [facility] Comment on above: Result Comment: DELLA GEMENT OF PATIENT CARE PER NURSING PROTOCOL Performed By: #### L 501.080 ####[facility] [address] [place], [address] CBC W/Diff, Automatedon 11-0 -2023 Absolute Lymph 1.48 X10 3/uL Normal 0.83-4.51 [facility] Comment on above: Performed By: #### L 500.4050, L100.0100, L501.5200, L501.2300 ####[facility] [address] [place], [address] Absolute Neut 3.8 X10 3/uL Normal 2.0-7.7 [facility] Comment on above: Performed By: #### L 500.4050, L100.0100, L501.5200, L501.2300 ####[facility] [address] [place], [address] Basophils/100 WBC (Bld) 0.5 % Normal 0-1 [facility] Comment on above: Performed By: #### L 500.4050, L100.0100, L501.5200, L501.2300 ####[facility] [address] [place], [address] Eosinophils/100 WBC (Bld) 2.4 % Normal 0-5 [facility] Comment on above: Performed By: #### L 500.4050, L100.0100, L501.5200, L501.2300 ####[facility] [address] [place], [address] Erythrocyte distribution width (RBC) [Ratio] 12.7 % Normal 11.6-14.6 [facility] Comment on above: Performed By: #### L 500.4050, L100.0100, L501.5200, L501.2300 ####[facility] [address] [place], [address] Hematocrit (Bld) [Volume fraction] 42.3 % Normal 37-47 [facility] Comment on above: Performed By: #### L 500.4050, L100.0100, L501.5200, L501.2300 ####[facility] [address] [place], [address] Hemoglobin (Bld) [Mass/Vol] 13.6 g/dL Normal 12.0-15.0 [facility] Comment on above: Performed By: #### L 500.4050, L100.0100, L501.5200, L501.2300 ####[facility] [address] [place], [address] IG% 0.500 Normal 0.0-0.9 [facility] Comment on above: Result Comment: IG% - Immature Granulocytes (promyelocytes, myelocytes andmetamyelocytes) > 1% indicates that a LEFT SHIFT is Present. Performed By: #### L 500.4050, L100.0100, L501.5200, L501.2300 ####[facility] [address] [place], [address] Lymphocytes/100 WBC (Bld) 24.0 % Normal 19-41 [facility] Comment on above: Performed By: #### L 500.4050, L100.0100, L501.5200, L501.2300 ####[facility] [address] [place], [address] MCH (RBC) [Entitic mass] 28.2 pg Normal 27.0-32.0 [facility] Comment on above: Performed By: #### L 500.4050, L100.0100, L501.5200, L501.2300 ####[facility] [address] [place], [address] MCHC (RBC) [Mass/Vol] 32.2 g/dL Normal 32-36 [facility] Comment on above: Performed By: #### L 500.4050, L100.0100, L501.5200, L501.2300 ####[facility] [address] [place], [address] MCV (RBC) [Entitic vol] 87.6 fL Normal 81-99 [facility] Comment on above: Performed By: #### L 500.4050, L100.0100, L501.5200, L501.2300 ####[facility] [address] [place], [address] Monocytes/100 WBC (Bld) 10.5 % High 0-10 [facility] Comment on above: Performed By: #### L 500.4050, L100.0100, L501.5200, L501.2300 ####[facility] [address] [place], [address] Neutrophils/100 WBC (Bld) 62.1 % Normal 47-70 [facility] Comment on above: Performed By: #### L 500.4050, L100.0100, L501.5200, L501.2300 ####[facility] [address] [place], [address] Nucleated RBC (Bld) [#/Vol] 0 10*3/uL Normal 0-5 [facility] Comment on above: Performed By: #### L 500.4050, L100.0100, L501.5200, L501.2300 ####[facility] [address] [place], [address] Platelet mean volume (Bld) [Entitic vol] 11.1 fL Normal 6.2-12.0 [facility] Comment on above: Performed By: #### L 500.4050, L100.0100, L501.5200, L501.2300 ####[facility] [address] [place], [address] Platelets (Bld) [#/Vol] 196 10*3/uL Normal 150-450 [facility] Comment on above: Performed By: #### L 500.4050, L100.0100, L501.5200, L501.2300 ####[facility] [address] [place], [address] RBC (Bld) [#/Vol] 4.83 10*6/uL Normal 4.2-5.4 [facility] Comment on above: Performed By: #### L 500.4050, L100.0100, L501.5200, L501.2300 ####[facility] [address] [place], [address] RDW SD 40.5 fl Normal 35.1-43.9 [facility] Comment on above: Performed By: #### L 500.4050, L100.0100, L501.5200, L501.2300 ####[facility] [address] [place], [address] WBC (Bld) [#/Vol] 6.2 10*3/uL Normal 4.4-11.0 [facility] Comment on above: Performed By: #### L 500.4050, L100.0100, L501.5200, L501.2300 ####[facility] [address] [place], [address] Absolute Lymph 1.24 X10 3/uL Normal 0.83-4.51 [facility] Comment on above: Performed By: #### L 501.6710, L503.6005, L101.9900, L500.2500, L300.3900, L100.0100 ####[facility] [address] [place], [address] Absolute Neut 5.5 X10 3/uL Normal 2.0-7.7 [facility] Comment on above: Performed By: #### L 501.6710, L503.6005, L101.9900, L500.2500, L300.3900, L100.0100 ####[facility] [address] [place], [address] Basophils/100 WBC (Bld) 0.9 % Normal 0-1 [facility] Comment on above: Performed By: #### L 501.6710, L503.6005, L101.9900, L500.2500, L300.3900, L100.0100 ####[facility] [id number] [place], [address] Eosinophils/100 WBC (Bld) 2.0 % Normal 0-5 [facility] Comment on above: Performed By: #### L 501.6710, L503.6005, L101.9900, L500.2500, L300.3900, L100.0100 ####[facility] [address] [place], [address] Erythrocyte distribution width (RBC) [Ratio] 12.7 % Normal 11.6-14.6 [facility] Comment on above: Performed By: #### L 501.6710, L503.6005, L101.9900, L500.2500, L300.3900, L100.0100 ####[facility] [address] [place], [address] Hematocrit (Bld) [Volume fraction] 47.3 % High 37-47 [facility] Comment on above: Performed By: #### L 501.6710, L503.6005, L101.9900, L500.2500, L300.3900, L100.0100 ####[facility] [address] [place], [address] Hemoglobin (Bld) [Mass/Vol] 15.8 g/dL High 12.0-15.0 [facility] Comment on above: Performed By: #### L 501.6710, L503.6005, L101.9900, L500.2500, L300.3900, L100.0100 ####[facility] [address] [place], [address] IG% 2.900 High 0.0-0.9 [facility] Comment on above: Result Comment: IG% - Immature Granulocytes (promyelocytes, myelocytes andmetamyelocytes) > 1% indicates that a LEFT SHIFT is Present. Performed By: #### L 501.6710, L503.6005, L101.9900, L500.2500, L300.3900, L100.0100 ####[facility] [address] [place], [address] Lymphocytes/100 WBC (Bld) 15.4 % Low 19-41 [facility] Comment on above: Performed By: #### L 501.6710, L503.6005, L101.9900, L500.2500, L300.3900, L100.0100 ####[facility] [address] [place], [address] MCH (RBC) [Entitic mass] 28.8 pg Normal 27.0-32.0 [facility] Comment on above: Performed By: #### L 501.6710, L503.6005, L101.9900, L500.2500, L300.3900, L100.0100 ####[facility] [address] [place], [address] MCHC (RBC) [Mass/Vol] 33.4 g/dL Normal 32-36 [facility] Comment on above: Performed By: #### L 501.6710, L503.6005, L101.9900, L500.2500, L300.3900, L100.0100 ####[facility] [address] [place], [address] MCV (RBC) [Entitic vol] 86.3 fL Normal 81-99 [facility] Comment on above: Performed By: #### L 501.6710, L503.6005, L101.9900, L500.2500, L300.3900, L100.0100 ####[facility] [address] [place], [address] Monocytes/100 WBC (Bld) 10.6 % High 0-10 [facility] Comment on above: Performed By: #### L 501.6710, L503.6005, L101.9900, L500.2500, L300.3900, L100.0100 ####[facility] [address] [place], [address] Neutrophils/100 WBC (Bld) 68.2 % Normal 47-70 [facility] Comment on above: Performed By: #### L 501.6710, L503.6005, L101.9900, L500.2500, L300.3900, L100.0100 ####[facility] [address] [place], [address] Nucleated RBC (Bld) [#/Vol] 0.2 10*3/uL Normal 0-5 [facility] Comment on above: Performed By: #### L 501.6710, L503.6005, L101.9900, L500.2500, L300.3900, L100.0100 ####[facility] [address] [place], [address] Platelet mean volume (Bld) [Entitic vol] 10.9 fL Normal 6.2-12.0 [facility] Comment on above: Performed By: #### L 501.6710, L503.6005, L101.9900, L500.2500, L300.3900, L100.0100 ####[facility] [address] [place], [address] Platelets (Bld) [#/Vol] 250 10*3/uL Normal 150-450 [facility] Comment on above: Performed By: #### L 501.6710, L503.6005, L101.9900, L500.2500, L300.3900, L100.0100 ####[facility] [address] [place], [address] RBC (Bld) [#/Vol] 5.48 10*6/uL High 4.2-5.4 [facility] Comment on above: Performed By: #### L 501.6710, L503.6005, L101.9900, L500.2500, L300.3900, L100.0100 ####[facility] [address] [place], [address] RDW SD 39.3 fl Normal 35.1-43.9 [facility] Comment on above: Performed By: #### L 501.6710, L503.6005, L101.9900, L500.2500, L300.3900, L100.0100 ####[facility] [address] [place], [address] WBC (Bld) [#/Vol] 8.1 10*3/uL Normal 4.4-11.0 [facility] Comment on above: Performed By: #### L 501.6710, L503.6005, L101.9900, L500.2500, L300.3900, L100.0100 ####[facility] [address] [place], [address] CRPon 02-21-2024 C-REACTIVE PROT < 2.90 Normal 0.0-3.0 [facility] Comment on above: Result Comment: C-Re active Protein (CRP) provides useful information for thediagnosis, therapy and monitoring of inflammatory processesand associated diseases. For the evaluation of Relative Riskfor Cardiovascular Disease, a High Sensitivity CRP (HSCRP)should be ordered. Performed By: #### L 501.6710, L503.6005, L101.9900, L500.2500, L300.3900, L100.0100 ####[facility] [address] [place], [address] Comprehensive Metabolic Prof tnon 02-21-2024 Albumin [Mass/Vol] 2.8 g/dL Low 3.2-5.0 [facility] Comment on above: Performed By: #### L 500.4050, L100.0100, L501.5200, L501.2300 ####[facility] [address] [place], [address] Albumin/Globulin [Mass ratio] 1.0 {ratio} Normal 0.9-2.4 [facility] Comment on above: Performed By: #### L 500.4050, L100.0100, L501.5200, L501.2300 ####[facility] [address] [place], [address] ALK P 132 U/L High 45-117 [facility] Comment on above: Performed By: #### L 500.4050, L100.0100, L501.5200, L501.2300 ####[facility] [address] [place], [address] ALT [Catalytic activity/Vol] 81 U/L High 13-56 [facility] Comment on above: Performed By: #### L 500.4050, L100.0100, L501.5200, L501.2300 ####[facility] [address] [place], [address] AST [Catalytic activity/Vol] 54 U/L High 15-37 [facility] Comment on above: Performed By: #### L 500.4050, L100.0100, L501.5200, L501.2300 ####[facility] [address] [place], [address] Bilirubin [Mass/Vol] 0.30 mg/dL Normal 0.20-1.00 [facility] Comment on above: Result Comment: For patients on eltrombopag therapy, use of Dimension [place] TBIL is not recommended. Performed By: #### L 500.4050, L100.0100, L501.5200, L501.2300 ####[facility] [address] [place], [address] BUN/CRE 18.4 RATIO Normal 10-20 [facility] Comment on above: Performed By: #### L 500.4050, L100.0100, L501.5200, L501.2300 ####[facility] [address] [place], [address] CA,Total 8.5 mg/dL Normal 8.5-10.1 [facility] Comment on above: Performed By: #### L 500.4050, L100.0100, L501.5200, L501.2300 ####[facility] [address] [place], [address] Chloride [Moles/Vol] 104 mmol/L Normal 98-107 [facility] Comment on above: Performed By: #### L 500.4050, L100.0100, L501.5200, L501.2300 ####[facility] [address] [place], [address] CO2 [Moles/Vol] 27.0 mmol/L Normal 21.0-32.0 [facility] Comment on above: Performed By: #### L 500.4050, L100.0100, L501.5200, L501.2300 ####[facility] [address] [place], [address] Creatinine [Mass/Vol] 0.60 mg/dL Normal 0.55-1.02 [facility] Comment on above: Result Comment: The validity of the calculated GFR GFRAA in patients over70 years has not been determined. Clinical correlation isessential. Performed By: #### L 500.4050, L100.0100, L501.5200, L501.2300 ####[facility] [address] [place], [address] ECRCL 97.57 ml/min Normal [facility] Comment on above: Performed By: #### L 500.4050, L100.0100, L501.5200, L501.2300 ####[facility] [address] [place], [address] EST GFR - AA 135 mL/min Normal >60 [facility] Comment on above: Result Comment: Afri can [place] GFR Calc Performed By: #### L 500.4050, L100.0100, L501.5200, L501.2300 ####[facility] [address] [place], [address] GAP 7 Normal 5-15 [facility] Comment on above: Performed By: #### L 500.4050, L100.0100, L501.5200, L501.2300 ####[facility] [address] [place], [address] GFR/1.73 sq M.predicted among non-blacks MDRD (S/P/Bld) [Vol rate/Area] 111 mL/min/{1.73_m2} Normal >60 [facility] Comment on above: Result Comment: Non- GFR Calc Performed By: #### L 500.4050, L100.0100, L501.5200, L501.2300 ####[facility] [address] [place], [address] Globulin (S) [Mass/Vol] 2.7 g/dL Normal 2.2-4.2 [facility] Comment on above: Performed By: #### L 500.4050, L100.0100, L501.5200, L501.2300 ####[facility] [address] [place], [address] Glucose [Mass/Vol] 381 mg/dL High 74-106 [facility] Comment on above: Result Comment: Gluc ose result greater than or equal to 200 mg/dLsuggests DIABETES MELLITUS per A.D.A. criteria. Performed By: #### L 500.4050, L100.0100, L501.5200, L501.2300 ####[facility] [address] [place], [address] Potassium [Moles/Vol] 3.7 mmol/L Normal 3.5-5.1 [facility] Comment on above: Performed By: #### L 500.4050, L100.0100, L501.5200, L501.2300 ####[facility] [address] [place], [address] Sodium [Moles/Vol] 138 mmol/L Normal 136-145 [facility] Comment on above: Performed By: #### L 500.4050, L100.0100, L501.5200, L501.2300 ####[facility] [address] [place], [address] T PROT 5.5 g/dL Low 6.4-8.2 [facility] Comment on above: Performed By: #### L 500.4050, L100.0100, L501.5200, L501.2300 ####[facility] [address] [place], [address] Urea nitrogen [Mass/Vol] 11 mg/dL Normal 7-18 [facility] Comment on above: Performed By: #### L 500.4050, L100.0100, L501.5200, L501.2300 ####[facility] [address] [place], [address] Erythrocyte Sed Rateon 02-20 SED RATE 9 mm/hr Normal 0-30 [facility] Comment on above: Performed By: #### L 501.6710, L503.6005, L101.9900, L500.2500, L300.3900, L100.0100 ####[facility] [address] [place], [address] Foot min 3 Viewson 4 Foot min 3 Views Normal [facility] Gram Stainon 02-21-2024 GS List Antibiotics Las t 48 Hours? Vancomycin List Antibiotics to be Started? Zosyn Gram Stain Rare White Blood Cells No organisms seen Normal [facility] Comment on above: Performed By: #### M 100.3000, M100.2000 ####[facility] [address] [place], [address] H AND P Exam - Hospitaliston 02-21-2024 H&P Exam - Hospitalist Normal [facility] Lactic Acidon 02-21-2024 Lactate [Moles/Vol] 1.5 mmol/L Normal 0.4-1.9 [facility] Comment on above: Order Comment: Y Performed By: #### L 501.6710, L503.6005, L101.9900, L500.2500, L300.3900, L100.0100 ####[facility] [address] [place], [address] Lower Ext/No Jt/w/oon 2023 Lower Ext/No Jt/w/o Normal [facility] MRSA Wound DNA by PCRon MRSA DNA ASSAY Positive Abnormal Negative [facility] Comment on above: Order Comment: Right Foot Ulcer Result Comment: Copy of report sent to Infection Control [facility]inter MS#[id number] ADELFO.RESULTS CALLED TO FREDDIE 02/21/24 0535 Sylvester Mejia.REPORT READ BACK BY SAME. Performed By: #### L 8200.1075 ####[facility] [address] [place], [address] SA DNA ASSAY Positive Abnormal Negative [facility] Comment on above: Order Comment: Right Foot Ulcer Performed By: #### L 8200.1075 ####[facility] [address] [place], [address] Magnesiumon 02-21-2024 Magnesium [Mass/Vol] 1.8 mg/dL Normal 1.6-2.6 [facility] Comment on above: Performed By: #### L 500.4050, L100.0100, L501.5200, L501.2300 ####[facility] [address] [place], [address] Phosphoruson 02-21-2024 Phosphate [Mass/Vol] 3.7 mg/dL Normal 2.5-4.9 [facility] Comment on above: Performed By: #### L 500.4050, L100.0100, L501.5200, L501.2300 ####[facility] [address] [place], [address] Prothrombin Time w/INRon INR Coag (PPP) [Relative time] 1.0 {INR} Normal [facility] Comment on above: Performed By: #### L 501.6710, L503.6005, L101.9900, L500.2500, L300.3900, L100.0100 ####[facility] [address] [place], [address] PT Coag (PPP) [Time] 12.7 s Normal 11.7-14.9 [facility] Comment on above: Performed By: #### L 501.6710, L503.6005, L101.9900, L500.2500, L300.3900, L100.0100 ####[facility] [address] [place], [address] Emergency Department Summary on 02-20-2024 Emergency Department Summary Normal [facility] Culture, Blood (WB)on 2023 CUB Blood cultures x2 fr om two different sites No growth in 5 days. Normal [facility] Comment on above: Performed By: #### M 200.1000 ####[facility] [address] [place], [address] Basic Metabolic Profile (BMP )on 02-10-2024 BUN Normal 7-18 [facility] Comment on above: Result Comment: Canc elled via OM: Order cancelled - Patient discharged Performed By: #### L 500.2500 ####[facility] [address] [place], [address] BUN/CRE Normal 10-20 [facility] Comment on above: Result Comment: Canc elled via OM: Order cancelled - Patient discharged Performed By: #### L 500.2500 ####[facility] [address] [place], [address] CA,Total Normal 8.5-10.1 [facility] Comment on above: Result Comment: Canc elled via OM: Order cancelled - Patient discharged Performed By: #### L 500.2500 ####[facility] [address] [place], [address] CL Normal 98-107 [facility] Comment on above: Result Comment: Canc elled via OM: Order cancelled - Patient discharged Performed By: #### L 500.2500 ####[facility] [address] [place], [address] CO2 Normal 21.0-32.0 [facility] Comment on above: Result Comment: Canc elled via OM: Order cancelled - Patient discharged Performed By: #### L 500.2500 ####[facility] [address] [place], [address] CREAT,SERUM Normal 0.55-1.02 [facility] Comment on above: Result Comment: Canc elled via OM: Order cancelled - Patient discharged Performed By: #### L 500.2500 ####[facility] [address] [place], [address] EST GFR Normal >60 [facility] Comment on above: Result Comment: Canc elled via OM: Order cancelled - Patient discharged Performed By: #### L 500.2500 ####[facility] [address] [place], [address] EST GFR - AA Normal >60 [facility] Comment on above: Result Comment: Canc elled via OM: Order cancelled - Patient discharged Performed By: #### L 500.2500 ####[facility] [address] [place], [address] GAP Normal 5-15 [facility] Comment on above: Result Comment: Canc elled via OM: Order cancelled - Patient discharged Performed By: #### L 500.2500 ####[facility] [address] [place], [address] GLU Normal 74-106 [facility] Comment on above: Result Comment: Canc elled via OM: Order cancelled - Patient discharged Performed By: #### L 500.2500 ####[facility] [address] [place], [address] Potassium Normal 3.5-5.1 [facility] Comment on above: Result Comment: Canc elled via OM: Order cancelled - Patient discharged Performed By: #### L 500.2500 ####[facility] [address] [place], [address] Basic Metabolic Profile (BMP) Normal 136-145 [facility] Comment on above: Result Comment: Canc elled via OM: Order cancelled - Patient discharged Performed By: #### L 500.2500 ####[facility] [address] [place], [address] CBC-Complete Blood Cnt No Di ffon 02-10-2024 HCT Normal 37-47 [facility] Comment on above: Result Comment: Canc elled via OM: Order cancelled - Patient discharged Performed By: #### L 100.0500 ####[facility] [address] [place], [address] HGB Normal 12.0-15.0 [facility] Comment on above: Result Comment: Canc elled via OM: Order cancelled - Patient discharged Performed By: #### L 100.0500 ####[facility] [address] [place], [address] MCH Normal 27.0-32.0 [facility] Comment on above: Result Comment: Canc elled via OM: Order cancelled - Patient discharged Performed By: #### L 100.0500 ####[facility] [address] [place], [address] MCHC Normal 32-36 [facility] Comment on above: Result Comment: Canc elled via OM: Order cancelled - Patient discharged Performed By: #### L 100.0500 ####[facility] [address] [place], [address] MCV Normal 81-99 [facility] Comment on above: Result Comment: Canc elled via OM: Order cancelled - Patient discharged Performed By: #### L 100.0500 ####[facility] [address] [place], [address] PLT Normal 150-450 [facility] Comment on above: Result Comment: Canc elled via OM: Order cancelled - Patient discharged Performed By: #### L 100.0500 ####[facility] [address] [place], [address] RBC Normal 4.2-5.4 [facility] Comment on above: Result Comment: Canc elled via OM: Order cancelled - Patient discharged Performed By: #### L 100.0500 ####[facility] [address] [place], [address] RDW CV Normal 11.6-14.6 [facility] Comment on above: Result Comment: Canc elled via OM: Order cancelled - Patient discharged Performed By: #### L 100.0500 ####[facility] [address] [place], [address] RDW SD Normal 35.1-43.9 [facility] Comment on above: Result Comment: Canc elled via OM: Order cancelled - Patient discharged Performed By: #### L 100.0500 ####[facility] [address] [place], [address] WBC Normal 4.4-11.0 [facility] Comment on above: Result Comment: Canc elled via OM: Order cancelled - Patient discharged Performed By: #### L 100.0500 ####[facility] [address] [place], [address] Bedside Glucoseon 02-09-2024 FINGERSTICK GLU 309 mg/dL High 74-106 [facility] Comment on above: Result Comment: DELLA GEMENT OF PATIENT CARE PER NURSING PROTOCOL Performed By: #### L 501.080 ####[facility] [address] [place], [address] FINGERSTICK GLU 345 mg/dL High 74-106 [facility] Comment on above: Result Comment: DELLA GEMENT OF PATIENT CARE PER NURSING PROTOCOL Performed By: #### L 501.080 ####[facility] [address] [place], [address] FINGERSTICK GLU 423 mg/dL High 74-106 [facility] Comment on above: Result Comment: DELLA GEMENT OF PATIENT CARE PER NURSING PROTOCOL Performed By: #### L 501.080 ####[facility] [address] [place], [address] CBC W/Diff, Automatedon 10-2 Absolute Lymph 1.24 X10 3/uL Normal 0.83-4.51 [facility] Comment on above: Performed By: #### L 501.5200, L501.2300, L500.4050, L100.0100, L501.9520 ####[facility] [address] [place], [address] Absolute Neut 1.9 X10 3/uL Low 2.0-7.7 [facility] Comment on above: Performed By: #### L 501.5200, L501.2300, L500.4050, L100.0100, L501.9520 ####[facility] [address] [place], [address] Basophils/100 WBC (Bld) 1.0 % Normal 0-1 [facility] Comment on above: Performed By: #### L 501.5200, L501.2300, L500.4050, L100.0100, L501.9520 ####[facility] [address] [place], [address] Eosinophils/100 WBC (Bld) 5.1 % High 0-5 [facility] Comment on above: Performed By: #### L 501.5200, L501.2300, L500.4050, L100.0100, L501.9520 ####[facility] [address] [place], [address] Erythrocyte distribution width (RBC) [Ratio] 12.2 % Normal 11.6-14.6 [facility] Comment on above: Performed By: #### L 501.5200, L501.2300, L500.4050, L100.0100, L501.9520 ####[facility] [address] [place], [address] Hematocrit (Bld) [Volume fraction] 38.3 % Normal 37-47 [facility] Comment on above: Performed By: #### L 501.5200, L501.2300, L500.4050, L100.0100, L501.9520 ####[facility] [address] [place], [address] Hemoglobin (Bld) [Mass/Vol] 12.6 g/dL Normal 12.0-15.0 [facility] Comment on above: Performed By: #### L 501.5200, L501.2300, L500.4050, L100.0100, L501.9520 ####[facility] [address] [place], [address] IG% 1.800 High 0.0-0.9 [facility] Comment on above: Result Comment: IG% - Immature Granulocytes (promyelocytes, myelocytes andmetamyelocytes) > 1% indicates that a LEFT SHIFT is Present. Performed By: #### L 501.5200, L501.2300, L500.4050, L100.0100, L501.9520 ####[facility] [address] [place], [address] Lymphocytes/100 WBC (Bld) 31.7 % Normal 19-41 [facility] Comment on above: Performed By: #### L 501.5200, L501.2300, L500.4050, L100.0100, L501.9520 ####[facility] [address] [place], [address] MCH (RBC) [Entitic mass] 28.4 pg Normal 27.0-32.0 [facility] Comment on above: Performed By: #### L 501.5200, L501.2300, L500.4050, L100.0100, L501.9520 ####[facility] [address] [place], [address] MCHC (RBC) [Mass/Vol] 32.9 g/dL Normal 32-36 [facility] Comment on above: Performed By: #### L 501.5200, L501.2300, L500.4050, L100.0100, L501.9520 ####[facility] [address] [place], [address] MCV (RBC) [Entitic vol] 86.5 fL Normal 81-99 [facility] Comment on above: Performed By: #### L 501.5200, L501.2300, L500.4050, L100.0100, L501.9520 ####[facility] [address] [place], [address] Monocytes/100 WBC (Bld) 11.3 % High 0-10 [facility] Comment on above: Performed By: #### L 501.5200, L501.2300, L500.4050, L100.0100, L501.9520 ####[facility] [address] [place], [address] Neutrophils/100 WBC (Bld) 49.1 % Normal 47-70 [facility] Comment on above: Performed By: #### L 501.5200, L501.2300, L500.4050, L100.0100, L501.9520 ####[facility] [address] [place], [address] Nucleated RBC (Bld) [#/Vol] 0 10*3/uL Normal 0-5 [facility] Comment on above: Performed By: #### L 501.5200, L501.2300, L500.4050, L100.0100, L501.9520 ####[facility] [address] [place], [address] Platelet mean volume (Bld) [Entitic vol] 10.1 fL Normal 6.2-12.0 [facility] Comment on above: Performed By: #### L 501.5200, L501.2300, L500.4050, L100.0100, L501.9520 ####[facility] [address] [place], [address] Platelets (Bld) [#/Vol] 198 10*3/uL Normal 150-450 [facility] Comment on above: Performed By: #### L 501.5200, L501.2300, L500.4050, L100.0100, L501.9520 ####[facility] [address] [place], [address] RBC (Bld) [#/Vol] 4.43 10*6/uL Normal 4.2-5.4 [facility] Comment on above: Performed By: #### L 501.5200, L501.2300, L500.4050, L100.0100, L501.9520 ####[facility] [address] [place], [address] RDW SD 38.6 fl Normal 35.1-43.9 [facility] Comment on above: Performed By: #### L 501.5200, L501.2300, L500.4050, L100.0100, L501.9520 ####[facility] [address] [place], [address] WBC (Bld) [#/Vol] 3.9 10*3/uL Low 4.4-11.0 [facility] Comment on above: Performed By: #### L 501.5200, L501.2300, L500.4050, L100.0100, L501.9520 ####[facility] [address] [place], [address] Comprehensive Metabolic Prof ilon 02-09-2024 Albumin [Mass/Vol] 2.6 g/dL Low 3.2-5.0 [facility] Comment on above: Performed By: #### L 501.5200, L501.2300, L500.4050, L100.0100, L501.9520 ####[facility] [address] [place], [address] Albumin/Globulin [Mass ratio] 0.9 {ratio} Normal 0.9-2.4 [facility] Comment on above: Performed By: #### L 501.5200, L501.2300, L500.4050, L100.0100, L501.9520 ####[facility] [address] [place], [address] ALK P 161 U/L High 45-117 [facility] Comment on above: Performed By: #### L 501.5200, L501.2300, L500.4050, L100.0100, L501.9520 ####[facility] [address] [place], [address] ALT [Catalytic activity/Vol] 111 U/L High 13-56 [facility] Comment on above: Performed By: #### L 501.5200, L501.2300, L500.4050, L100.0100, L501.9520 ####[facility] [address] [place], [address] AST [Catalytic activity/Vol] 55 U/L High 15-37 [facility] Comment on above: Performed By: #### L 501.5200, L501.2300, L500.4050, L100.0100, L501.9520 ####[facility] [address] [place], [address] Bilirubin [Mass/Vol] 0.40 mg/dL Normal 0.20-1.00 [facility] Comment on above: Result Comment: For patients on eltrombopag therapy, use of Dimension [place] TBIL is not recommended. Performed By: #### L 501.5200, L501.2300, L500.4050, L100.0100, L501.9520 ####[facility] [address] [place], [address] BUN/CRE 23.5 RATIO High 10-20 [facility] Comment on above: Performed By: #### L 501.5200, L501.2300, L500.4050, L100.0100, L501.9520 ####[facility] [address] [place], [address] CA,Total 8.3 mg/dL Low 8.5-10.1 [facility] Comment on above: Performed By: #### L 501.5200, L501.2300, L500.4050, L100.0100, L501.9520 ####[facility] [address] [place], [address] Chloride [Moles/Vol] 106 mmol/L Normal 98-107 [facility] Comment on above: Performed By: #### L 501.5200, L501.2300, L500.4050, L100.0100, L501.9520 ####[facility] [address] [place], [address] CO2 [Moles/Vol] 26.0 mmol/L Normal 21.0-32.0 [facility] Comment on above: Performed By: #### L 501.5200, L501.2300, L500.4050, L100.0100, L501.9520 ####[facility] [address] [place], [address] Creatinine [Mass/Vol] 0.55 mg/dL Normal 0.55-1.02 [facility] Comment on above: Result Comment: The validity of the calculated GFR GFRAA in patients over70 years has not been determined. Clinical correlation isessential. Performed By: #### L 501.5200, L501.2300, L500.4050, L100.0100, L501.9520 ####[facility] [address] [place], [address] ECRCL 106.44 ml/min Normal [facility] Comment on above: Performed By: #### L 501.5200, L501.2300, L500.4050, L100.0100, L501.9520 ####[facility] [address] [place], [address] EST GFR - AA 147 mL/min Normal >60 [facility] Comment on above: Result Comment: Afri can [place] GFR Calc Performed By: #### L 501.5200, L501.2300, L500.4050, L100.0100, L501.9520 ####[facility] [address] [place], [address] GAP 4 Low 5-15 [facility] Comment on above: Performed By: #### L 501.5200, L501.2300, L500.4050, L100.0100, L501.9520 ####[facility] [address] [place], [address] GFR/1.73 sq M.predicted among non-blacks MDRD (S/P/Bld) [Vol rate/Area] 122 mL/min/{1.73_m2} Normal >60 [facility] Comment on above: Result Comment: Non- GFR Calc Performed By: #### L 501.5200, L501.2300, L500.4050, L100.0100, L501.9520 ####[facility] [address] [place], [address] Globulin (S) [Mass/Vol] 2.9 g/dL Normal 2.2-4.2 [facility] Comment on above: Performed By: #### L 501.5200, L501.2300, L500.4050, L100.0100, L501.9520 ####[facility] [address] [place], [address] Glucose [Mass/Vol] 381 mg/dL High 74-106 [facility] Comment on above: Result Comment: Gluc ose result greater than or equal to 200 mg/dLsuggests DIABETES MELLITUS per A.D.A. criteria. Performed By: #### L 501.5200, L501.2300, L500.4050, L100.0100, L501.9520 ####[facility] [address] [place], [address] Potassium [Moles/Vol] 4.0 mmol/L Normal 3.5-5.1 [facility] Comment on above: Performed By: #### L 501.5200, L501.2300, L500.4050, L100.0100, L501.9520 ####[facility] [address] [place], [address] Sodium [Moles/Vol] 136 mmol/L Normal 136-145 [facility] Comment on above: Performed By: #### L 501.5200, L501.2300, L500.4050, L100.0100, L501.9520 ####[facility] [address] [place], [address] T PROT 5.5 g/dL Low 6.4-8.2 [facility] Comment on above: Performed By: #### L 501.5200, L501.2300, L500.4050, L100.0100, L501.9520 ####[facility] [address] [place], [address] Urea nitrogen [Mass/Vol] 13 mg/dL Normal 7-18 [facility] Comment on above: Performed By: #### L 501.5200, L501.2300, L500.4050, L100.0100, L501.9520 ####[facility] [address] [place], [address] Magnesiumon 02-09-2024 Magnesium [Mass/Vol] 1.9 mg/dL Normal 1.6-2.6 [facility] Comment on above: Performed By: #### L 501.5200, L501.2300, L500.4050, L100.0100, L501.9520 ####[facility] [address] [place], [address] Phosphoruson 02-09-2024 Phosphate [Mass/Vol] 3.5 mg/dL Normal 2.5-4.9 [facility] Comment on above: Performed By: #### L 501.5200, L501.2300, L500.4050, L100.0100, L501.9520 ####[facility] [address] [place], [address] Thyroid Stim Hormone (TSH)on 02-09-2024 TSH 0.916 uIU/mL Normal 0.358-3.740 [facility] Comment on above: Performed By: #### L 501.5200, L501.2300, L500.4050, L100.0100, L501.9520 ####[facility] [address] [place], [address] Vancomycin, Trough Levelon 1 VANCO, TROUGH 7.1 ug/mL Normal 5.0-15.0 [facility] Comment on above: Order Comment: Comme nts: Trough to be drawn 30 mins prior to scheduled [id number] Result Comment: VANC OMYCIN STANDARED DRUG THERAPY TROUGH LEVEL: 5.0 - 15.0 mg/LVANCOMYCIN HIGH INTENSITY THERAPY TROUGH LEVEL: 15.0 - 20.0 mg/LHigh Intensity therapy recommended for serious lifethreatening infections include:- Bakawoteep-Namlvizdehci-Iczhcffrm (Ventilator/Healtcare Associated)-SepsisPLEASE CONTACT PHARMACY SERVICES (#4158) FOR INTERPRETATIONOF RESULTS. Performed By: #### L 501.8820 ####[facility] [address] [place], [address] Basic Metabolic Profile (BMP )on 02-08-2024 BUN/CRE 31.8 RATIO High 10-20 [facility] Comment on above: Performed By: #### L 503.6005, L509.7000, L100.0100, L101.9900, L500.2500, L501.6710 ####[facility] [address] [place], [address] CA,Total 9.1 mg/dL Normal 8.5-10.1 [facility] Comment on above: Performed By: #### L 503.6005, L509.7000, L100.0100, L101.9900, L500.2500, L501.6710 ####[facility] [address] [place], [address] Chloride [Moles/Vol] 102 mmol/L Normal 98-107 [facility] Comment on above: Performed By: #### L 503.6005, L509.7000, L100.0100, L101.9900, L500.2500, L501.6710 ####[facility] [address] [place], [address] CO2 [Moles/Vol] 25.0 mmol/L Normal 21.0-32.0 [facility] Comment on above: Performed By: #### L 503.6005, L509.7000, L100.0100, L101.9900, L500.2500, L501.6710 ####[facility] [address] [place], [address] Creatinine [Mass/Vol] 0.63 mg/dL Normal 0.55-1.02 [facility] Comment on above: Result Comment: The validity of the calculated GFR GFRAA in patients over70 years has not been determined. Clinical correlation isessential. Performed By: #### L 503.6005, L509.7000, L100.0100, L101.9900, L500.2500, L501.6710 ####[facility] [address] [place], [address] ECRCL 92.93 ml/min Normal [facility] Comment on above: Performed By: #### L 503.6005, L509.7000, L100.0100, L101.9900, L500.2500, L501.6710 ####[facility] [address] [place], [address] EST GFR - AA 127 mL/min Normal >60 [facility] Comment on above: Result Comment: Afri can [place] GFR Calc Performed By: #### L 503.6005, L509.7000, L100.0100, L101.9900, L500.2500, L501.6710 ####[facility] [address] [place], [address] GAP 7 Normal 5-15 [facility] Comment on above: Performed By: #### L 503.6005, L509.7000, L100.0100, L101.9900, L500.2500, L501.6710 ####[facility] [address] [place], [address] GFR/1.73 sq M.predicted among non-blacks MDRD (S/P/Bld) [Vol rate/Area] 105 mL/min/{1.73_m2} Normal >60 [facility] Comment on above: Result Comment: Non- GFR Calc Performed By: #### L 503.6005, L509.7000, L100.0100, L101.9900, L500.2500, L501.6710 ####[facility] [address] [place], [address] Glucose [Mass/Vol] 402 mg/dL High 74-106 [facility] Comment on above: Result Comment: Gluc ose result greater than or equal to 200 mg/dLsuggests DIABETES MELLITUS per A.D.A. criteria. Performed By: #### L 503.6005, L509.7000, L100.0100, L101.9900, L500.2500, L501.6710 ####[facility] [address] [place], [address] Potassium [Moles/Vol] 3.6 mmol/L Normal 3.5-5.1 [facility] Comment on above: Performed By: #### L 503.6005, L509.7000, L100.0100, L101.9900, L500.2500, L501.6710 ####[facility] [address] [place], [address] Sodium [Moles/Vol] 134 mmol/L Low 136-145 [facility] Comment on above: Performed By: #### L 503.6005, L509.7000, L100.0100, L101.9900, L500.2500, L501.6710 ####[facility] [address] [place], [address] Urea nitrogen [Mass/Vol] 20 mg/dL High 7-18 [facility] Comment on above: Performed By: #### L 503.6005, L509.7000, L100.0100, L101.9900, L500.2500, L501.6710 ####[facility] [address] [place], [address] Bedside Glucoseon 02-08-2024 FINGERSTICK GLU 369 mg/dL High 74-106 [facility] Comment on above: Result Comment: DELLA GEMENT OF PATIENT CARE PER NURSING PROTOCOL Performed By: #### L 501.080 ####[facility] [address] [place], [address] FINGERSTICK GLU 357 mg/dL High 74-106 [facility] Comment on above: Result Comment: DELLA GEMENT OF PATIENT CARE PER NURSING PROTOCOL Performed By: #### L 501.080 ####[facility] [address] [place], [address] FINGERSTICK GLU 334 mg/dL High 74-106 [facility] Comment on above: Result Comment: DELLA GEMENT OF PATIENT CARE PER NURSING PROTOCOL Performed By: #### L 501.080 ####[facility] [address] [place], [address] FINGERSTICK GLU 253 mg/dL High 74-106 [facility] Comment on above: Result Comment: DELLA GEMENT OF PATIENT CARE PER NURSING PROTOCOL Performed By: #### L 501.080 ####[facility] [address] [place], [address] CBC W/Diff, Automatedon 10-2 Absolute Lymph 2.81 X10 3/uL Normal 0.83-4.51 [facility] Comment on above: Performed By: #### L 503.6005, L509.7000, L100.0100, L101.9900, L500.2500, L501.6710 ####[facility] [address] [place], [address] Absolute Neut 5.8 X10 3/uL Normal 2.0-7.7 [facility] Comment on above: Performed By: #### L 503.6005, L509.7000, L100.0100, L101.9900, L500.2500, L501.6710 ####[facility] [address] [place], [address] Basophils/100 WBC (Bld) 0.8 % Normal 0-1 [facility] Comment on above: Performed By: #### L 503.6005, L509.7000, L100.0100, L101.9900, L500.2500, L501.6710 ####[facility] [address] [place], [address] Eosinophils/100 WBC (Bld) 0.9 % Normal 0-5 [facility] Comment on above: Performed By: #### L 503.6005, L509.7000, L100.0100, L101.9900, L500.2500, L501.6710 ####[facility] [address] [place], [address] Erythrocyte distribution width (RBC) [Ratio] 12.0 % Normal 11.6-14.6 [facility] Comment on above: Performed By: #### L 503.6005, L509.7000, L100.0100, L101.9900, L500.2500, L501.6710 ####[facility] [address] [place], [address] Hematocrit (Bld) [Volume fraction] 42.6 % Normal 37-47 [facility] Comment on above: Performed By: #### L 503.6005, L509.7000, L100.0100, L101.9900, L500.2500, L501.6710 ####[facility] [address] [place], [address] Hemoglobin (Bld) [Mass/Vol] 14.7 g/dL Normal 12.0-15.0 [facility] Comment on above: Performed By: #### L 503.6005, L509.7000, L100.0100, L101.9900, L500.2500, L501.6710 ####[facility] [address] [place], [address] IG% 1.300 High 0.0-0.9 [facility] Comment on above: Result Comment: IG% - Immature Granulocytes (promyelocytes, myelocytes andmetamyelocytes) > 1% indicates that a LEFT SHIFT is Present. Performed By: #### L 503.6005, L509.7000, L100.0100, L101.9900, L500.2500, L501.6710 ####[facility] [address] [place], [address] Lymphocytes/100 WBC (Bld) 28.6 % Normal 19-41 [facility] Comment on above: Performed By: #### L 503.6005, L509.7000, L100.0100, L101.9900, L500.2500, L501.6710 ####[facility] [address] [place], [address] MCH (RBC) [Entitic mass] 29.2 pg Normal 27.0-32.0 [facility] Comment on above: Performed By: #### L 503.6005, L509.7000, L100.0100, L101.9900, L500.2500, L501.6710 ####[facility] [address] [place], [address] MCHC (RBC) [Mass/Vol] 34.5 g/dL Normal 32-36 [facility] Comment on above: Performed By: #### L 503.6005, L509.7000, L100.0100, L101.9900, L500.2500, L501.6710 ####[facility] [address] [place], [address] MCV (RBC) [Entitic vol] 84.7 fL Normal 81-99 [facility] Comment on above: Performed By: #### L 503.6005, L509.7000, L100.0100, L101.9900, L500.2500, L501.6710 ####[facility] [address] [place], [address] Monocytes/100 WBC (Bld) 9.3 % Normal 0-10 [facility] Comment on above: Performed By: #### L 503.6005, L509.7000, L100.0100, L101.9900, L500.2500, L501.6710 ####[facility] [address] [place], [address] Neutrophils/100 WBC (Bld) 59.1 % Normal 47-70 [facility] Comment on above: Performed By: #### L 503.6005, L509.7000, L100.0100, L101.9900, L500.2500, L501.6710 ####[facility] [address] [place], [address] Nucleated RBC (Bld) [#/Vol] 0 10*3/uL Normal 0-5 [facility] Comment on above: Performed By: #### L 503.6005, L509.7000, L100.0100, L101.9900, L500.2500, L501.6710 ####[facility] [address] [place], [address] Platelet mean volume (Bld) [Entitic vol] 10.6 fL Normal 6.2-12.0 [facility] Comment on above: Performed By: #### L 503.6005, L509.7000, L100.0100, L101.9900, L500.2500, L501.6710 ####[facility] [address] [place], [address] Platelets (Bld) [#/Vol] 269 10*3/uL Normal 150-450 [facility] Comment on above: Performed By: #### L 503.6005, L509.7000, L100.0100, L101.9900, L500.2500, L501.6710 ####[facility] [address] [place], [address] RBC (Bld) [#/Vol] 5.03 10*6/uL Normal 4.2-5.4 [facility] Comment on above: Performed By: #### L 503.6005, L509.7000, L100.0100, L101.9900, L500.2500, L501.6710 ####[facility] [address] [place], [address] RDW SD 36.4 fl Normal 35.1-43.9 [facility] Comment on above: Performed By: #### L 503.6005, L509.7000, L100.0100, L101.9900, L500.2500, L501.6710 ####[facility] [address] [place], [address] WBC (Bld) [#/Vol] 9.8 10*3/uL Normal 4.4-11.0 [facility] Comment on above: Performed By: #### L 503.6005, L509.7000, L100.0100, L101.9900, L500.2500, L501.6710 ####[facility] [address] [place], [address] CRPon 02-08-2024 C-REACTIVE PROT 3.31 mg/L High 0.0-3.0 [facility] Comment on above: Result Comment: C-Re active Protein (CRP) provides useful information for thediagnosis, therapy and monitoring of inflammatory processesand associated diseases. For the evaluation of Relative Riskfor Cardiovascular Disease, a High Sensitivity CRP (HSCRP)should be ordered. Performed By: #### L 503.6005, L509.7000, L100.0100, L101.9900, L500.2500, L501.6710 ####[facility] [address] [place], [address] Emergency Department Summary on 02-08-2024 Emergency Department Summary Normal [facility] Erythrocyte Sed Rateon 02-07 SED RATE 7 mm/hr Normal 0-30 [facility] Comment on above: Performed By: #### L 503.6005, L509.7000, L100.0100, L101.9900, L500.2500, L501.6710 ####[facility] [address] [place], [address] Foot min 3 Viewson 4 Foot min 3 Views Normal [facility] H AND P Exam - Hospitaliston 02-08-2024 H&P Exam - Hospitalist Normal [facility] Lactic Acidon 02-08-2024 Lactate [Moles/Vol] 1.1 mmol/L Normal 0.4-1.9 [facility] Comment on above: Order Comment: Y Performed By: #### L 503.6005, L509.7000, L100.0100, L101.9900, L500.2500, L501.6710 ####[facility] [address] [facility] [place], [place], [address] Lower Ext No Joint W/WO Cont on 02-08-2024 Lower Ext No Joint W/WO Cont Normal [facility] M R Staph Aureus DNA by PCRo n 02-08-2024 MRSA DNA ASSAY Positive Abnormal Negative [facility] Comment on above: Performed By: #### L 8200.1000 ####[facility] [address] [facility] [place], [place], [address] Procalcitoninon 02-08-2024 Procalcitonin 0.18 ng/mL High 0.00-0.09 [facility] Comment on above: Result Comment: A [...] L 503.6005, L509.7000, L100.0100, L101.9900, L500.2500, L501.6710 ####[facility] [address] [place], [address] Urine Drug Screen (VISTA)on 02-08-2024 AMPHETAMINES Normal <1000 ng/mL [facility] Comment on above: Result Comment: @DUP LICATE ORDER Performed By: #### L 505.5000 ####[facility] [address] [place], [address] BARBITIURATES Normal < 200 ng/mL [facility] Comment on above: Result Comment: @DUP LICATE ORDER Performed By: #### L 505.5000 ####[facility] [address] [place], [address] BENZODIAZIPINE Normal < 200 ng/mL [facility] Comment on above: Result Comment: @DUP LICATE ORDER Performed By: #### L 505.5000 ####[facility] [address] [place] [address] COCAINE Normal < 300 ng/mL [facility] Comment on above: Result Comment: @DUP LICATE ORDER Performed By: #### L 505.5000 ####[facility] [address] [place], [place], [phone] DRUG CONFIRM Normal [facility] Comment on above: Result Comment: @DUP LICATE ORDER Performed By: #### L 505.5000 ####[facility] [address] [place], [address] ECSTACY Normal < 500 ng/mL [facility] Comment on above: Result Comment: @DUP LICATE ORDER Performed By: #### L 505.5000 ####[facility] [address] [place], [address] METHADONE Normal < 300 ng/mL [facility] Comment on above: Result Comment: @DUP LICATE ORDER Performed By: #### L 505.5000 ####[facility] [address] [place] [id number] OPIATES Normal < 300 ng/mL [facility] Comment on above: Result Comment: @DUP LICATE ORDER Performed By: #### L 505.5000 ####[facility] [address] [place] [address] PCP Normal < 25 ng/mL [facility] Comment on above: Result Comment: @DUP LICATE ORDER Performed By: #### L 505.5000 ####[facility] [address] [place] [address] THC Normal < 50 ng/mL [facility] Comment on above: Result Comment: @DUP LICATE ORDER Performed By: #### L 505.5000 ####[facility] [address] [place] [address] VISTA UDS PH Normal [facility] Comment on above: Result Comment: @DUP LICATE ORDER Performed By: #### L 505.5000 ####[facility] [address] [place] [address] AMPHETAMINES Negative Normal <1000 ng/mL [facility] Comment on above: Performed By: #### L 505.5000 ####[facility] [address] [place] [address] BARBITIURATES Negative Normal < 200 ng/mL [facility] Comment on above: Performed By: #### L 505.5000 ####[facility] [address] [place] [address] BENZODIAZIPINE Negative Normal < 200 ng/mL [facility] Comment on above: Performed By: #### L 505.5000 ####[facility] [address] [place] [address] COCAINE Positive Abnormal < 300 ng/mL [facility] Comment on above: Performed By: #### L 505.5000 ####[facility] [address] [place] [address] ECSTACY Negative Normal < 500 ng/mL [facility] Comment on above: Performed By: #### L 505.5000 ####[facility] [address] [place], [address] METHADONE Negative Normal < 300 ng/mL [facility] Comment on above: Performed By: #### L 505.5000 ####[facility] [address] [place], [address] OPIATES Positive Abnormal < 300 ng/mL [facility] Comment on above: Performed By: #### L 505.5000 ####[facility] [address] [place], [address] PCP Negative Normal < 25 ng/mL [facility] Comment on above: Performed By: #### L 505.5000 ####[facility] [address] [place], [place], [phone] THC Negative Normal < 50 ng/mL [facility] Comment on above: Performed By: #### L 505.5000 ####[facility] [address] [place], [address] VISTA UDS PH 5 Normal [facility] Comment on above: Performed By: #### L 505.5000 ####[facility] [address] [place], [address] Cult, Bloodon 02-03-2024 Cult, Blood Specimen Description .BLOOD Special Requests Culture NO GROWTH 5 DAYS Report Status FINAL 02/03/2024 Normal [facility] Comment on above: Performed By: #### B CUL2 #### [facility] [address] [place] [address] House Calls Nurse Practitioner: Rodríguez Suarez MD Cult,Bloodon 02-03-2024 Cult,Blood Specimen Description .BLOOD Special Requests Culture NO GROWTH 5 DAYS Report Status FINAL 02/03/2024 Normal [facility] Comment on above: Performed By: #### B C ####[address] [address] [facility] Director: Rodríguez Suarez MD Cult,Woundon 01-31-2024 Cult,Wound [...] Vancomycin <=0.5 SUSCEPTIBLE Doxycycline >=16 RESISTANT Resistant [facility] Comment on above: Performed By: #### W DC ####[place] [address] Lab Director: Rodríguez Suarez MD C-Reactive Proteinon 024 CRP [Mass/Vol] 3.0 mg/L Normal 0-5 [facility] Comment on above: Performed By: #### P HVBG, LACTIC, PER, LIP, MG, CBC, CP #### [facility] [place] [address] House Calls Nurse Practitioner: Yaritza Infante MD #### BH #### [address] [address] House Calls Nurse Practitioner: Rodríguez Suarez MD CBC with Diffon 01-29-2024 Abs. Basophil 0.05 k/uL Normal 0.00-0.20 [facility] Comment on above: Performed By: #### C BCHUDSON, SED, PLCON ####[address] [place] [phone] Director: Rodríguez Suarez MD Abs.Imm.Granulocyte 0.14 k/uL Normal 0.00-0.58 [facility] Comment on above: Performed By: #### C BCWD, SED, PLCON ####[place] [address] Lab Director: Rodríguez Suarez MD Abs.Neutrophil (Seg) 4.94 k/uL Normal 1.80-7.30 [facility] Comment on above: Performed By: #### C MEENA, SED, PLCON ####[address] [place] [address]([facility])[phone] Director: Rodríguez Suarez MD Basophils/100 WBC (Bld) 1 % Normal 0.0-2.0 [facility] Comment on above: Performed By: #### C MEENA, SED, PLCON ####[place] [address]([facility])[phone] Director: Rodríguez Suarez MD Eosinophils (Bld) [#/Vol] 0.18 10*3/uL Normal 0.05-0.50 [facility] Comment on above: Performed By: #### C BCHUDSON, SED, PLCON ####[place] [address]([facility])[phone] Director: Rodríguez Suarez MD Eosinophils/100 WBC (Bld) 2 % Normal 0-6 [facility] Comment on above: Performed By: #### C BCWD, SED, PLCON ####[address], [place] [phone] Director: Rodríguez Suarez MD Erythrocyte distribution width (RBC) [Ratio] 12.1 % Normal 11.5-15.0 [facility] Comment on above: Performed By: #### C BCWD, SED, PLCON ####[place] [address] [place] [address] Lab Director: Rodríguez Suarez MD Hematocrit (Bld) [Volume fraction] 42.2 % Normal 34.0-48.0 [facility] Comment on above: Performed By: #### C MEENA, SED, PLCON ####[address] [place] [address] Lab Director: Rodríguez Suarez MD Hemoglobin (Bld) [Mass/Vol] 13.9 g/dL Normal 11.5-15.5 [facility] Comment on above: Performed By: #### C MEENA, SED, PLCON ####[address], [place] [phone] Director: Rodríguez Suarez MD Immature granulocytes/100 WBC (Bld) 2 % Normal 0.0-5.0 [facility] Comment on above: Performed By: #### Demetra ROBLEDO, SED, PLCON ####[address] [place] [address] Lab Director: Rodríguez Suarez MD Lymphocytes (Bld) [#/Vol] 1.45 10*3/uL Low 1.50-4.00 [facility] Comment on above: Performed By: #### C BCHUDSON, SED, PLCON ####[place] [address] [phone] Director: Rodríguez Suarez MD Lymphocytes/100 WBC (Bld) 19 % Low 20.0-42.0 [facility] Comment on above: Performed By: #### C BCWD, SED, PLCON ####[place] [address] [place] [address] Lab Director: Rodríguez Suarez MD MCH (RBC) [Entitic mass] 28.7 pg Normal 26.0-35.0 [facility] Comment on above: Performed By: #### C BCWD, SED, PLCON ####[place] [address] [place] [address] Lab Director: Rodríguez Suarez MD MCHC (RBC) [Mass/Vol] 32.9 g/dL Normal 32.0-34.5 [facility] Comment on above: Performed By: #### C BCWD, SED, PLCON ####[place] [address] [place] [address] Lab Director: Rodríguez Suarez MD MCV (RBC) [Entitic vol] 87.2 fL Normal 80.0-99.9 [facility] Comment on above: Performed By: #### C BCWD, SED, PLCON ####[place] [address] [place] [address] Lab Director: Rodríguez Suarez MD Monocytes (Bld) [#/Vol] 0.77 10*3/uL Normal 0.10-0.95 [facility] Comment on above: Performed By: #### C BCWD, SED, PLCON ####[place] [address] [place] [address] Lab Director: Rodríguez Suarez MD Monocytes/100 WBC (Bld) 10 % Normal 2.0-12.0 [facility] Comment on above: Performed By: #### C BCWD, SED, PLCON ####[place] [address] [place] [address] Lab Director: Rodríguez Suarez MD Neutrophil (Seg) 66 % Normal 43.0-80.0 [facility] Comment on above: Performed By: #### C BCWD, SED, PLCON ####[place] [address] [place] [address] Lab Director: Rodríguez Suarez MD Platelet mean volume (Bld) [Entitic vol] 11.3 fL Normal 7.0-12.0 [facility] Comment on above: Performed By: #### C BCHUDSON, SED, PLCON ####[place] [address] [place] [address] Lab Director: Rodríguez Suarez MD Platelet, Fluoresc. 191 k/uL Normal 130-450 [facility] Comment on above: Performed By: #### C MEENA, SED, PLCON ####[place] [address] [place] [address] Lab Director: Rodríguez Suarez MD RBC (Bld) [#/Vol] 4.84 10*6/uL Normal 3.50-5.50 [facility] Comment on above: Performed By: #### C MEENA, SED, PLCON ####[place] [address] [place] [address] Lab Director: Rodríguez Suarez MD WBC (Bld) [#/Vol] 7.5 10*3/uL Normal 4.5-11.5 [facility] Comment on above: Performed By: #### C MEENA, SED, PLCON ####[place] [address] [place] [address] Lab Director: Rodríguez Suarez MD Comp Metabolic Profon 2023 Albumin [Mass/Vol] 3.5 g/dL Normal 3.5-5.2 [facility] Comment on above: Performed By: #### C P, CRP ####[facility], [place] [phone] Director: Rodríguez Suarez MD Alkaline Phos 214 U/L High 35-104 [facility] Comment on above: Performed By: #### C P, CRP ####[facility] [facility] [place] [phone] Director: Rodríguez Suarez MD ALT [Catalytic activity/Vol] 163 U/L High 0-32 [facility] Comment on above: Performed By: #### C P, CRP ####[facility] [place] [address].[place] [address] Lab Director: Rodríguez Suarez MD Anion gap [Moles/Vol] 9 mmol/L Normal 7-16 [facility] Comment on above: Performed By: #### C P, CRP ####[facility] [facility] [place] [address] Lab Director: Rodríguez Suarez MD AST [Catalytic activity/Vol] 85 U/L High 0-31 [facility] Comment on above: Performed By: #### C P, CRP ####[address] [place] [address] Lab Director: Rodríguez Suarez MD Bilirubin [Mass/Vol] 0.4 mg/dL Normal 0.0-1.2 [facility] Comment on above: Performed By: #### C P, CRP ####[address] [place] [phone] Director: Rodríguez Suarez MD Calcium [Mass/Vol] 8.7 mg/dL Normal 8.6-10.2 [facility] Comment on above: Performed By: #### C P, CRP ####[place] [address], [place] [phone] Director: Rodríguez Suarez MD Chloride [Moles/Vol] 104 mmol/L Normal 98-107 [facility] Comment on above: Performed By: #### C P, CRP ####[place] [address], [place] [phone] Director: Rodríguez Suarez MD CO2 [Moles/Vol] 26 mmol/L Normal 22-29 [facility] Comment on above: Performed By: #### C P, CRP ####[address], [place] [phone] Director: Rodríguez Suarez MD Creatinine [Mass/Vol] 0.4 mg/dL Low 0.50-1.00 [facility] Comment on above: Performed By: #### C P, CRP ####[address], [place] [phone] Director: Rodríguez Suarez MD GFR/1.73 sq M.predicted among non-blacks MDRD (S/P/Bld) [Vol rate/Area] mL/min/{1.73_m2} Normal >60 [facility] Comment on above: Result Comment: These results [...] secretion. Performed By: #### C P, CRP ####[address], [place] [phone] Director: Rodríguez Suarez MD Glucose [Mass/Vol] 311 mg/dL High 74-99 [facility] Comment on above: Performed By: #### C P, CRP ####[address], [place] [phone] Director: Rodríguez Suarez MD Potassium [Moles/Vol] 3.9 mmol/L Normal 3.5-5.0 [facility] Comment on above: Performed By: #### C P, CRP ####[place] [address] Lab Director: Rodríguez Suarez MD Protein [Mass/Vol] 6.2 g/dL Low 6.4-8.3 [facility] Comment on above: Performed By: #### C P, CRP ####[place] [address]([facility])[phone] Director: Rodríguez Suarez MD Sodium [Moles/Vol] 139 mmol/L Normal 132-146 [facility] Comment on above: Performed By: #### C P, CRP ####[place] [address]([facility])[phone] Director: Rodrígeuz Suarez MD Urea nitrogen [Mass/Vol] 17 mg/dL Normal 6-20 [facility] Comment on above: Performed By: #### C P, CRP ####[place] [address]([facility])[phone] Director: Rodríguez Suarez MD Drug Scr, Abuse, Uron 2023 Amphetamine(s),Ur Negative Normal NEG [facility] Comment on above: Result Comment: Cuto ff: 1000 ng/mL Performed By: #### D AU ####[place] [address] Lab Director: Rodríguez Suarez MD Barbiturate(s),Ur Negative Normal NEG [facility] Comment on above: Result Comment: Cuto ff: 200 ng/ml Performed By: #### D AU ####[place] [address], [place] [phone] Director: Rodríguez Suarez MD Benzodiazepine(s) Negative Normal NEG [facility] Comment on above: Result Comment: Cuto ff: 200 ng/ml Performed By: #### D AU ####[place] [address], [place] [phone] Director: Rodríguez Suarez MD Buprenorphrine, Ur Negative Normal NEG [facility] Comment on above: Result Comment: Cuto ff: 5 ng/ml Performed By: #### D AU ####[place] [address], [place] [phone] Director: Rodríguez Suarez MD Cannabinoid(s),Ur Negative Normal NEG [facility] Comment on above: Result Comment: Cuto ff: 50 ng/ml Performed By: #### D AU ####[place] [address] [facility], [place] [phone] Director: Rodríguez Suarez MD Cocaine Metabolite Negative Normal NEG [facility] Comment on above: Result Comment: Cuto ff: 300 ng/ml Performed By: #### D AU ####[place] [address], [place] [phone] Director: Rodríguez Suarez MD Fentanyl, Urine Negative Normal NEG [facility] Comment on above: Result Comment: Cuto ff: 1.0 ng/ml Performed By: #### D AU ####[place] [address], [place] [phone] Director: Rodríguez Suarez MD Interpretive Info These drug screen results are for medical purposes only and should not be Normal [facility] Comment on above: Result Comment: cons idered definitive or confirmed. The drug methodology concentration value must be greater than or equal to the cutoff to be reported as positive. Confirmtory testing orders and/or interpretive sceening questions can be directed to toxicology at [phone]. The absence of expected drug(s) and/or metabolite(s) may be due to inappropriate timing of specimen collection relative to drug administration, poor drug absorption, diluted/adulterated urine, or limitations of screening methodology. Performed By: #### D AU ####[place], [place] [phone] Director: Rodríguez Suarez MD Methadone Ql (U) Negative Normal NEG [facility] Comment on above: Result Comment: Cuto ff: 300 ng/ml Performed By: #### D AU ####[place], [place] [phone] Director: Rodríguez Suarez MD Opiate(s), Ur Negative Normal NEG [facility] Comment on above: Result Comment: Cuto ff: 300 ng/ml Note: The Opiate screen is not intended to detect Oxycodone. Performed By: #### D AU ####[address], [place] [phone] Director: Rodríguez Suarez MD Oxycodone, Urine Negative Normal NEG [facility] Comment on above: Result Comment: Cuto ff: 100 ng/ml Performed By: #### D AU ####[address] [phone] Director: Rodríguez Suarez MD Phencyclidine, Ur Negative Normal NEG [facility] Comment on above: Result Comment: Cuto ff: 25 ng/ml Performed By: #### D AU ####[address] [phone])[phone] Director: Rodríguez Suarez MD Platelet Confirmationon 10-1 6-2024 Platelet Confirmation The automated plat elet count may be artifactually decreased due to platelet Normal [facility] Comment on above: Result Comment: clum ping. Performed By: #### C MEENA, SED, PLCON ####[facility] [facility] [place] [address] lab Director: Rodríguez Suarez MD Sedimentation Rateon 024 Sedimentation Rate 9 mm/Hr Normal 0-20 [facility] Comment on above: Performed By: #### C BCWD, SED, PLCON ####[facility] [facility] [place] [address] lab Director: Rodríguez Suarez MD XR FOOT RIGHT [...] Mc Pepper MD 01/29/24 Final result Normal [facility] Comment on above: Order Comment: Reaso n [...] Cristina José MD 01/23/24 Final result Normal [facility] Comment on above: Order Comment: Reaso n for exam:->OSTEO CBC W Auto Differential pane l (Bld)on 01-12-2024 Basophils (Bld) [#/Vol] 10*3/uL Normal <0.11 [facility] Comment on above: Order Comment: Speci men Type: URINE SPECIMEN Ordering Facility: [facility] Address: [address] [place] [address] Performed By: #### 2 4356-8 #### [facility] CLIA [id number] [address] [place] [address] [place] Basophils/100 WBC (Bld) 0.5 % Normal [facility] Comment on above: Order Comment: Speci men Type: URINE SPECIMEN Ordering Facility: [facility] Address: [address] [place] [address] Performed By: #### 2 4356-8 #### [facility] CLIA [id number] [address] [place] [address] [place] Differential cell count method Nom (Bld) Auto Normal [facility] Comment on above: Order Comment: Speci men Type: URINE SPECIMEN Ordering Facility: [facility] Address: [address] [place] [address] Performed By: #### 2 4356-8 #### [facility] CLIA [id number] [address] [place] [address] [place] Eosinophils (Bld) [#/Vol] 0.14 10*3/uL Normal <0.46 [facility] Comment on above: Order Comment: Speci men Type: URINE SPECIMEN Ordering Facility: [facility] Address: [address] [place] [address] Performed By: #### 2 4356-8 #### [facility] CLIA [id number] [address] [place] [address] [place] Eosinophils/100 WBC (Bld) 3.2 % Normal [facility] Comment on above: Order Comment: Speci men Type: URINE SPECIMEN Ordering Facility: [facility] Address: [address] [place] [address] Performed By: #### 2 4356-8 #### [facility] CLIA [id number] [address] [place] [address] [place] Erythrocyte distribution width (RBC) [Ratio] 12.4 % Normal 11.5-15.0 [facility] Comment on above: Order Comment: Speci men Type: URINE SPECIMEN Ordering Facility: [facility] Address: [address] [place] [address] Performed By: #### 2 4356-8 #### [facility] CLIA [id number] [address] [place] [address] [place] Hematocrit (Bld) [Volume fraction] 39.8 % Normal 36.0-46.0 [facility] Comment on above: Order Comment: Speci men Type: URINE SPECIMEN Ordering Facility: [facility] Address: [address] [place] [address] Performed By: #### 2 4356-8 #### [facility] CLIA [id number] [address] [place] [address] [place] Hemoglobin (Bld) [Mass/Vol] 13.2 g/dL Normal 11.5-15.5 [facility] Comment on above: Order Comment: Speci men Type: URINE SPECIMEN Ordering Facility: [facility] Address: [address] [place] [address] Performed By: #### 2 4356-8 #### [facility] CLIA [id number] [address] [place] [address] [place] Immature granulocytes (Bld) [#/Vol] 0.07 10*3/uL Normal <0.10 [facility] Comment on above: Order Comment: Speci men Type: URINE SPECIMEN Ordering Facility: [facility] Address: [address] [place] [address] Performed By: #### 2 4356-8 #### [facility] CLIA [id number] [address] [place] [address] [place] Immature granulocytes/100 WBC (Bld) 1.6 % Normal [facility] Comment on above: Order Comment: Speci men Type: URINE SPECIMEN Ordering Facility: [facility] Address: [address] [place] [address] Performed By: #### 2 4356-8 #### [facility] CLIA [id number] [address] [place] [address] [place] Lymphocytes (Bld) [#/Vol] 1.15 10*3/uL Normal 1.00-4.00 [facility] Comment on above: Order Comment: Speci men Type: URINE SPECIMEN Ordering Facility: [facility] Address: [address] [place] [address] Performed By: #### 2 4356-8 #### [facility] CLIA [id number] [address] [place] [address] [place] Lymphocytes/100 WBC (Bld) 26.1 % Normal [facility] Comment on above: Order Comment: Speci men Type: URINE SPECIMEN Ordering Facility: [facility] Address: [address] [place] [address] Performed By: #### 2 4356-8 #### [facility] CLIA [id number] [address] [place] [address] [place] MCH (RBC) [Entitic mass] 29.2 pg Normal 26.0-34.0 [facility] Comment on above: Order Comment: Speci men Type: URINE SPECIMEN Ordering Facility: [facility] Address: [address] [place] [address] Performed By: #### 2 4356-8 #### [facility] CLIA [id number] [address] [place] [address] [place] MCHC (RBC) [Mass/Vol] 33.2 g/dL Normal 30.5-36.0 [facility] Comment on above: Order Comment: Speci men Type: URINE SPECIMEN Ordering Facility: [facility] Address: [address] [place] [address] Performed By: #### 2 4356-8 #### [facility] CLIA [id number] [address] [place] [address] [place] MCV (RBC) [Entitic vol] 88.1 fL Normal 80.0-100.0 [facility] Comment on above: Order Comment: Speci men Type: URINE SPECIMEN Ordering Facility: [facility] Address: [address] [place] [address] Performed By: #### 2 4356-8 #### [facility] CLIA [id number] [address] [place] [address] [place] Monocytes (Bld) [#/Vol] 0.46 10*3/uL Normal <0.87 [facility] Comment on above: Order Comment: Speci men Type: URINE SPECIMEN Ordering Facility: [facility] Address: [address] [place] [address] Performed By: #### 2 4356-8 #### [facility] CLIA [id number] [address] [place] [address] [place] Monocytes/100 WBC (Bld) 10.5 % Normal [facility] Comment on above: Order Comment: Speci men Type: URINE SPECIMEN Ordering Facility: [facility] Address: [address] [place] [address] Performed By: #### 2 4356-8 #### [facility] CLIA [id number] [address] [place] [address] [place] Neutrophils (Bld) [#/Vol] 2.56 10*3/uL Normal 1.45-7.50 [facility] Comment on above: Order Comment: Speci men Type: URINE SPECIMEN Ordering Facility: [facility] Address: [address] [place] [address] Performed By: #### 2 4356-8 #### [facility] CLIA [id number] [address] [place] [address] [place] Neutrophils/100 WBC (Bld) 58.1 % Normal [facility] Comment on above: Order Comment: Speci men Type: URINE SPECIMEN Ordering Facility: [facility] Address: [address] [place] [address] Performed By: #### 2 4356-8 #### [facility] CLIA [id number] [address] [place] [address] [place] Nucleated RBC (Bld) [#/Vol] 10*3/uL Normal <0.01 [facility] Comment on above: Order Comment: Speci men Type: URINE SPECIMEN Ordering Facility: [facility] Address: [address] [place] [address] Performed By: #### 2 4356-8 #### [facility] CLIA [id number] [address] [place] [address] [place] Nucleated RBC/100 WBC (Bld) [Ratio] 0.0 /100 WBC Normal [facility] Comment on above: Order Comment: Speci men Type: URINE SPECIMEN Ordering Facility: [facility] Address: [address] [place] [address] Performed By: #### 2 4356-8 #### [facility] CLIA [id number] [address] [place] [address] [place] Platelet mean volume (Bld) [Entitic vol] 10.5 fL Normal 9.0-12.7 [facility] Comment on above: Order Comment: Speci men Type: URINE SPECIMEN Ordering Facility: [facility] Address: [address] [place] [address] Performed By: #### 2 4356-8 #### [facility] CLIA [id number] [address] [place] [address] [place] Platelets (Bld) [#/Vol] 154 10*3/uL Normal 150-400 [facility] Comment on above: Order Comment: Speci men Type: URINE SPECIMEN Ordering Facility: [facility] Address: [address] [place] [address] Performed By: #### 2 4356-8 #### [facility] CLIA [id number] [address] [place], [place] [address] [place] RBC (Bld) [#/Vol] 4.52 10*6/uL Normal 3.90-5.20 [facility] Comment on above: Order Comment: Speci men Type: URINE SPECIMEN Ordering Facility: [facility] Address: [address] [place] [address] Performed By: #### 2 4356-8 #### [facility] CLIA [id number] [address] [place] [address] [place] [facility] WBC (Bld) [#/Vol] 4.40 10*3/uL Normal 3.70-11.00 [facility] Comment on above: Order Comment: Speci men Type: URINE SPECIMEN Ordering Facility: [facility] Address: [address] [place] [address] Performed By: #### 2 4356-8 #### [facility] CLIA [id number] [address] [place] [address] OF [facility] Comprehensive metabolic 2000 panelon 01-12-2024 Albumin [Mass/Vol] 2.8 g/dL Low 3.2-5.0 [facility] Comment on above: Order Comment: Speci men Type: URINE SPECIMEN Ordering Facility: [facility] Address: [address] [place] [address] Performed By: #### 2 4356-8 #### [facility] CLIA [id number] [address] [place] [address] [place] ALP [Catalytic activity/Vol] 203 U/L High 45-117 [facility] Comment on above: Order Comment: Speci men Type: URINE SPECIMEN Ordering Facility: [facility] Address: [address] [place] [address] Performed By: #### 2 4356-8 #### [facility] CLIA [id number] [address] [place] [address] ALT [Catalytic activity/Vol] 296 U/L High 13-61 [facility] Comment on above: Order Comment: Speci men Type: URINE SPECIMEN Ordering Facility: [facility] Address: [address] [place] [address] Result Comment: Resu lts may be falsely depressed after the administration of Sulfasalazine and/or Sulfapyridine. Performed By: #### 2 4356-8 #### [facility] CLIA [id number] [address] [place], [place] [address] [place] Anion gap [Moles/Vol] 5 mmol/L Normal 5-16 [facility] Comment on above: Order Comment: Speci men Type: URINE SPECIMEN Ordering Facility: [facility] Address: [address] [place] [address] Performed By: #### 2 4356-8 #### [facility] CLIA [id number] [address] [place] [address] [place] AST [Catalytic activity/Vol] 186 U/L High 8-34 [facility] Comment on above: Order Comment: Speci men Type: URINE SPECIMEN Ordering Facility: [facility] Address: [address] [place] [address] Result Comment: Resu lts may be falsely depressed after the administration of Sulfasalazine and/or Sulfapyridine. Performed By: #### 2 4356-8 #### [facility] CLIA [id number] [address] [place] [address] [place] Bilirubin [Mass/Vol] 0.3 mg/dL Normal 0.2-1.0 [facility] Comment on above: Order Comment: Speci men Type: URINE SPECIMEN Ordering Facility: [facility] Address: [address] [place] [address] Performed By: #### 2 4356-8 #### [facility] CLIA [id number] [address] [place] [address] [place] Calcium [Mass/Vol] 9.7 mg/dL Normal 8.5-10.5 [facility] Comment on above: Order Comment: Speci men Type: URINE SPECIMEN Ordering Facility: [facility] Address: [address] [place] [address] Performed By: #### 2 4356-8 #### [facility] CLIA [id number] [address] [place] [address] [place] Chloride [Moles/Vol] 107 mmol/L Normal 98-107 [facility] Comment on above: Order Comment: Speci men Type: URINE SPECIMEN Ordering Facility: [facility] Address: [address] [place] [address] Performed By: #### 2 4356-8 #### [facility] CLIA [id number] [address] [place] [address] [place] CO2 [Moles/Vol] 29 mmol/L Normal 21-32 [facility] Comment on above: Order Comment: Speci men Type: URINE SPECIMEN Ordering Facility: [facility] Address: [address] [place] [address] Performed By: #### 2 4356-8 #### [facility] CLIA [id number] [address] [place] [address] [place] Creatinine [Mass/Vol] 0.35 mg/dL Low 0.51-0.95 [facility] Comment on above: Order Comment: Speci men Type: URINE SPECIMEN Ordering Facility: [facility] Address: [address] [place] [address] Result Comment: Camila ents receiving either N-Acetylcysteine (NAC) or Metamizole prior to venipuncture, may have falsely depressed results. Performed By: #### 2 4356-8 #### [facility] CLIA [id number] [address] [place] [address] [place] Creatinine and Glomerular filtration rate.predicted panel (S/P/Bld) 122 mL/min/1.73m??? Normal >=60 [facility] Comment on above: Order Comment: Speci men Type: URINE SPECIMEN Ordering Facility: [facility] Address: [address] [id number] Result Comment: Ivis mated Glomerular Filtration Rate [...] GFR. Performed By: #### 2 4356-8 #### [facility] CLIA [id number] [address] [place] [address] [place] Glucose [Mass/Vol] 394 mg/dL High 70-100 [facility] Comment on above: Order Comment: Speci men Type: URINE SPECIMEN Ordering Facility: [facility] Address: [address] [place], [place] [id number] Result Comment: The [place] Diabetes Association (ADA) provides guidance for cutoff [...] Standards of Medical Care in Diabetes 2016, [place] [employer]. Diabetes Care. 2016.39(Suppl 1). Results may be falsely elevated after the administration of Sulfapyridine. Results may be falsely depressed after the administration of Sulfasalazine. Performed By: #### 2 4356-8 #### [facility] CLIA [id number] [address] [place] [address] [place] Potassium [Moles/Vol] 4.1 mmol/L Normal 3.5-5.1 [facility] Comment on above: Order Comment: Speci men Type: URINE SPECIMEN Ordering Facility: [facility] Address: [address] [place] [address] Performed By: #### 2 4356-8 #### [facility] CLIA [id number] [address] [place] [address] [place] Protein [Mass/Vol] 5.7 g/dL Low 6.0-8.5 [facility] Comment on above: Order Comment: Speci men Type: URINE SPECIMEN Ordering Facility: [facility] Address: [address] [phone] Performed By: #### 2 4356-8 #### [facility] CLIA [id number] [address] [place], [place] [address] [place] Sodium [Moles/Vol] 141 mmol/L Normal 136-145 [facility] Comment on above: Order Comment: Speci men Type: URINE SPECIMEN Ordering Facility: [facility] Address: [address] [place], [place] [phone] Performed By: #### 2 4356-8 #### [facility] CLIA [id number] [address] [place], [place] [address] [place] Urea nitrogen [Mass/Vol] 17 mg/dL Normal 7-26 [facility] Comment on above: Order Comment: Speci men Type: URINE SPECIMEN Ordering Facility: [facility] Address: [address] [place], [place] [address] [phone] Performed By: #### 2 4356-8 #### [facility] CLIA [id number] [address] [place], [place] [address] [place] ED NOTEon 01-12-2024 ED NOTE HNO ID: [id number] Author: SUMAN MCNEILL RN Service: Nursing Author Type: Registered Nurse Type: ED Notes Filed: 01/12/2024 23:56 Note Text: Report called to [facility] spoke with Kelly MALCOLM. [facility] ED PROV NOTEon 01-12-2024 ED PROV NOTE HNO ID: [id number] Author: LAILA HERNANDEZ DO Service: ? Author Type: Physician Type: ED Provider Notes Filed: 01/12/2024 23:45 Note Text: ED Provider Note Patient Name: Ana Cristina Thomas : 1970 SERVICE DATE: 01/12/24 History Patient presents with: High Blood Sugar: Pt brought in from [facility] with reports of polyuria, polydipsia, hyperglycemia. Pt has a history of DKA. Patient is a 53-year-old female presenting from [facility] secondary to hyperglycemia issues. Patient is [...] exam SUBTOTAL/TOTAL HYSTERECTOMY AFTER C-SEC 03/31/2010 Hysterectomy, [facility] Dr. Rhoades FAMILY HISTORY Problem Relation Age of Onset Hypertension Father Arthritis Mother Diabetes Father Cancer Father Jasper's Disease, dementia Osteoporosis Mother Cancer Other great [...] Notable f (more content not included)... Normal [facility] Gas and Carbon monoxide pane l (BldV)on 01-12-2024 Base excess Calc (BldV) [Moles/Vol] 3 mmol/L High 0-2 [facility] Comment on above: Order Comment: Speci men Type: URINE SPECIMEN Ordering Facility: [facility] Address: [address] [place] [address] Performed By: #### 2 4356-8 #### [facility] CLIA [id number] [address] [place] [address] [place] Body temperature 98.6 [degF] Normal [facility] Comment on above: Order Comment: Speci men Type: URINE SPECIMEN Ordering Facility: [facility] Address: [address] [place] [address] Performed By: #### 2 4356-8 #### [facility] CLIA [id number] [address] [place] [address] [place] Calcium.ionized (Bld) [Mass/Vol] 1.18 mmol/L Normal 1.08-1.30 [facility] Comment on above: Order Comment: Speci men Type: URINE SPECIMEN Ordering Facility: [facility] Address: [address] [place] [address] Performed By: #### 2 4356-8 #### [facility] CLIA [id number] [address] [place] [address] [place] Carboxyhemoglobin (BldV) [Mass fraction] 1.1 % Normal 0.0-2.0 [facility] Comment on above: Order Comment: Speci men Type: URINE SPECIMEN Ordering Facility: [facility] Address: [address] [place] [address] Result Comment: Carb oxyhemoglobin Reference Range for Smokers: 2.0-8.0% Performed By: #### 2 4356-8 #### [facility] CLIA [id number] [address] [place] [address] [place] CO2 (BldV) [Partial pressure] 47 mm[Hg] Normal 42-55 [facility] Comment on above: Order Comment: Speci men Type: URINE SPECIMEN Ordering Facility: [facility] Address: [address] [place] [address] Performed By: #### 2 4356-8 #### [facility] CLIA [id number] [address] [place] [address] [place] Glucose [Mass/Vol] 414 mg/dL High 60-105 [facility] Comment on above: Order Comment: Speci men Type: URINE SPECIMEN Ordering Facility: [facility] Address: [address] [place] [address] Performed By: #### 2 4356-8 #### [facility] CLIA [id number] [address] [place] [address] [place] HCO3 (Bld) [Moles/Vol] 29 mmol/L High 24-28 [facility] Comment on above: Order Comment: Speci men Type: URINE SPECIMEN Ordering Facility: [facility] Address: [address] [place] [address] Performed By: #### 2 4356-8 #### [facility] CLIA [id number] [address] [place] [address] [place] Hemoglobin (Bld) [Mass/Vol] 14.1 g/dL Normal 11.5-15.5 [facility] Comment on above: Order Comment: Speci men Type: URINE SPECIMEN Ordering Facility: [facility] Address: [address] [place] [address] Performed By: #### 2 4356-8 #### [facility] CLIA [id number] [address] [place] [address] [place] Lactate [Moles/Vol] 2.4 mmol/L High 0.5-2.2 [facility] Comment on above: Order Comment: Speci men Type: URINE SPECIMEN Ordering Facility: [facility] Address: [address] [place] [address] Performed By: #### 2 4356-8 #### [facility] CLIA [id number] [address] [place] [address] [place] Methemoglobin (Bld) [Mass fraction] 0.3 % Normal 0.0-1.5 [facility] Comment on above: Order Comment: Speci men Type: URINE SPECIMEN Ordering Facility: [facility] Address: [address] [place] [address] Performed By: #### 2 4356-8 #### [facility] CLIA [id number] [address] [place] [address] [place] O2 THERAPY RA=Room Air Normal [facility] Comment on above: Order Comment: Speci men Type: URINE SPECIMEN Ordering Facility: [facility] Address: [address] [place] [address] Performed By: #### 2 4356-8 #### [facility] CLIA [id number] [address] [place] [address] [place] Oxygen (BldV) [Partial pressure] 51 mm[Hg] High 35-45 [facility] Comment on above: Order Comment: Speci men Type: URINE SPECIMEN Ordering Facility: [facility] Address: [address] [place] [address] Performed By: #### 2 4356-8 #### [facility] CLIA [id number] [address] [place] [address] [place] Oxyhemoglobin (BldV) [Mass fraction] 86 % Normal 4-98 [facility] Comment on above: Order Comment: Speci men Type: URINE SPECIMEN Ordering Facility: [facility] Address: [address] [place] [address] Performed By: #### 2 4356-8 #### [facility] CLIA [id number] [address] [place] [address] [place] pH (BldV) 7.40 [pH] Normal 7.32-7.42 [facility] Comment on above: Order Comment: Speci men Type: URINE SPECIMEN Ordering Facility: [facility] Address: [address] [place] [address] Performed By: #### 2 4356-8 #### [facility] CLIA [id number] [address] [place] [address] [place] Potassium [Moles/Vol] 4.0 mmol/L Normal 2.5-6.0 [facility] Comment on above: Order Comment: Speci men Type: URINE SPECIMEN Ordering Facility: [facility] Address: [address] [place] [address] Performed By: #### 2 4356-8 #### [facility] CLIA [id number] [address] [place] [address] [place] Sodium [Moles/Vol] 139 mmol/L Normal 136-144 [facility] Comment on above: Order Comment: Speci men Type: URINE SPECIMEN Ordering Facility: [facility] Address: [address] [place] [address] Performed By: #### 2 4356-8 #### [facility] CLIA [id number] [address] [place], [place] [address] [place] Magnesium SerPl-mCncon 01-11 Magnesium [Mass/Vol] 1.6 mg/dL Normal 1.6-2.6 [facility] Comment on above: Order Comment: Speci men Type: URINE SPECIMEN Ordering Facility: [facility] Address: [address] [place] [address] Performed By: #### 2 4356-8 #### [facility] CLIA [id number] [address] [place] [address] [place] Urinalysis complete panel (U )on 01-12-2024 Bacteria LM.HPF (Urine sed) [#/Area] Few Abnormal None Seen [facility] Comment on above: Order Comment: Speci men Type: URINE SPECIMENOrdering Facility: [facility] Address: [address] [place] [address] Performed By: #### 2 4356-8 ####[facility] [id number] [place] [address] [place] Bilirubin Ql (U) Negative Normal Negative [facility] Comment on above: Order Comment: Speci men Type: URINE SPECIMENOrdering Facility: [facility] Address: [address] [place] [address] Performed By: #### 2 4356-8 ####[facility] [id number] [address] [place] [id number] [place] Clarity (Unsp spec) Clear Normal Clear [facility] Comment on above: Order Comment: Speci men Type: URINE SPECIMENOrdering Facility: [facility] Address: [address] [place], [place] [id number] Performed By: #### 2 4356-8 ####[facility] [id number] [place] [id number] [place] Color (U) Straw Normal Yellow [facility] Comment on above: Order Comment: Speci men Type: URINE SPECIMENOrdering Facility: [facility] Address: [address] [place] [address] Performed By: #### 2 4356-8 ####[facility] [id number] [place] [address] [place] Epithelial cells LM.HPF (Urine sed) [#/Area] Few Normal [facility] Comment on above: Order Comment: Speci men Type: URINE SPECIMENOrdering Facility: [facility] Address: [address] [place] [address] Performed By: #### 2 4356-8 ####[facility] [id number] [address] [place] Glucose Test strip (U) [Mass/Vol] 3+ Abnormal Negative [facility] Comment on above: Order Comment: Speci men Type: URINE SPECIMENOrdering Facility: [facility] Address: [address] [place] [address] Performed By: #### 2 4356-8 ####[facility] [id number] [place] [address] [place] Hemoglobin Ql (U) 1+ Abnormal Negative [facility] Comment on above: Order Comment: Speci men Type: URINE SPECIMENOrdering Facility: [facility] Address: [address] [place] [address] Performed By: #### 2 4356-8 ####[facility] [id number] [place] [id number] [place] Ketones Ql (U) Negative Normal Negative [facility] Comment on above: Order Comment: Speci men Type: URINE SPECIMENOrdering Facility: [facility] Address: [address] [place] [address] Performed By: #### 2 4356-8 ####[facility]IA [id number] [address] Leukocyte esterase Test strip Ql (U) 2+ Abnormal Negative [facility] Comment on above: Order Comment: Speci men Type: URINE SPECIMENOrdering Facility: [facility] Address: [address] [place] [address] Performed By: #### 2 4356-8 ####[facility]IA [id number] [address] [place] Nitrite Ql (U) Negative Normal Negative [facility] Comment on above: Order Comment: Speci men Type: URINE SPECIMENOrdering Facility: [facility] Address: [address] [place] [address] Performed By: #### 2 4356-8 ####[facility] [id number] [address] [place] pH (U) 6.0 [pH] Normal 5.0-8.0 [facility] Comment on above: Order Comment: Speci men Type: URINE SPECIMENOrdering Facility: [facility] Address: [address] [place] [address] Performed By: #### 2 4356-8 ####[facility] [id number] [address] Protein (U) [Mass/Vol] Negative Normal Negative [facility] Comment on above: Order Comment: Speci men Type: URINE SPECIMENOrdering Facility: [facility] Address: [address] [place] [address] Performed By: #### 2 4356-8 ####[facility]IA [id number] [address] [place] RBC LM.HPF (Urine sed) [#/Area] 3-5 /HPF Abnormal 0-3 /HPF [facility] Comment on above: Order Comment: Speci men Type: URINE SPECIMENOrdering Facility: [facility] Address: [address] [place] [address] Performed By: #### 2 4356-8 ####[facility]IA [id number] [place] [id number] [facility] Specific gravity (U) [Rel density] 1.029 Normal 1.005-1.030 [facility] Comment on above: Order Comment: Speci men Type: URINE SPECIMENOrdering Facility: [facility] Address: [address] [place] [address] Performed By: #### 2 4356-8 ####[facility]IA [id number] [address] Urobilinogen Ql (U) Negative Normal Negative [facility] Comment on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 average glucose) is a calculated value from HgbA1c and is pharmaceutical specialty representative of the average blood glucose level in the last 2-3 month period. Performed By: #### 2 4344-4 #### [facility] CLIA [id number] [address] [place] [address] [place] HbA1c (Bld) [Mass fraction] 10.9 % High 4.3-5.6 [facility] Comment on above: Order Comment: Speci men Type: VENOUS BLOOD SPECIMEN Ordering Facility: [facility] Address: [address] [place] [address] Result Comment: [place] Diabetes Association guidelines indicate that patients with HgbA1c in the range 5.7-6.4% are at increased risk for development of diabetes, and intervention by lifestyle modification may be beneficial. HgbA1c greater or equal to 6.5% is considered diagnostic of diabetes. Performed By: #### 2 4344-4 #### [facility] CLIA [id number] [address] [place] [address] [place] Lipase SerPl-cCncon 12-25-19 24 Lipase [Catalytic activity/Vol] 101 U/L High 12-60 [facility] Comment on above: Order Comment: Speci men Type: BLOOD SPECIMEN Ordering Facility: [facility] Address: [address] [place] [address] Performed By: #### [place], [address]-2, 3040-3, 23431-9 #### [facility] CLIA [id number] [address] [place], [place] [address] [place] Magnesium SerPl-mCncon 12-24 Magnesium [Mass/Vol] 1.7 mg/dL Normal 1.6-2.6 [facility] Comment on above: Order Comment: Speci men Type: BLOOD SPECIMEN Ordering Facility: [facility] Address: [address] [place] [address] Performed By: #### 5 7021-8 #### [facility] CLIA [id number] [address] [place], [place] [address] [place] Magnesium [Mass/Vol] 1.9 mg/dL Normal 1.6-2.6 [facility] Comment on above: Order Comment: Speci men Type: BLOOD SPECIMEN Ordering Facility: [facility] Address: [address] [place] [address] Performed By: #### [place], [address]-6, 3039-3, 87894-7 #### [facility] CLIA [id number] [address] [place], [place] [address] [place] NUTRITIONon 12-25-2023 NUTRITION HNO ID: [id number] Author: DEEPA FIGUEROA RD Service: Nutrition Therapy [...] Weight Type: Current weight Estimated kilocalorie needs: Calorie Calculation Method: 25-30 kcals/kg Estimated protein needs (grams): 80-101 Grams protein determined by: 1.2 - 1.5 g/kg Diet Orders (From admission, onward) Start Ordered 12/25/23 0730 DIET CARBOHYDRATE CONTROLLED START NOW Question: Carbohydrate Control Answer: CONSISTENT CARBOHYDRATE 12/25/23 0727 Anthropometrics: Height: 165.1 cm (5' 5) Weight: [...] December 25, 2023 TIME: 12:58 PM Normal [facility] TOXICOLOGY SCREEN, ROUTINE U RINEon 12-25-2023 Amphetamines Confirm (U) [Mass/Vol] Negative Normal Negative [facility] Comment on above: Order Comment: Speci men Type: VENOUS BLOOD SPECIMEN Ordering Facility: [facility] Address: [address] [place] [address] Result Comment: Cuto ff threshold at 1000 ng/mL. Performed By: #### 2 4344-4 #### [facility] CLIA [id number] [address] [place] [address] BARBITURATES, URINE Negative Normal Negative [facility] Comment on above: Order Comment: Speci men Type: VENOUS BLOOD SPECIMEN Ordering Facility: [facility] Address: [address] [place] [address] Result Comment: Cuto ff threshold at 200 ng/mL. Performed By: #### 2 4344-4 #### [facility] CLIA [id number] [address] [place] [address] [place] BENZODIAZEPINES, UR Negative Normal Negative [facility] Comment on above: Order Comment: Speci men Type: VENOUS BLOOD SPECIMEN Ordering Facility: [facility] Address: [address] [place] [address] Result Comment: Cuto ff threshold at 200 ng/mL. Performed By: #### 2 4344-4 #### [facility] CLIA [id number] [address] [place] [address] [place] Cannabinoids Screen Ql (U) Negative Normal Negative [facility] Comment on above: Order Comment: Speci men Type: VENOUS BLOOD SPECIMEN Ordering Facility: [facility] Address: [address] [place] [address] Result Comment: Cuto ff threshold at 50 ng/mL. Performed By: #### 2 4344-4 #### [facility] CLIA [id number] [address] [place] [address] [place] Cocaine Ql (U) Negative Normal Negative [facility] Comment on above: Order Comment: Speci men Type: VENOUS BLOOD SPECIMEN Ordering Facility: [facility] Address: [address] [place] [address] Result Comment: Cuto ff threshold at 300 ng/mL. Performed By: #### 2 4344-4 #### [facility] CLIA [id number] [address] [place] [address] [place] Opiates Screen Ql (U) Positive Abnormal Negative [facility] Comment on above: Order Comment: Speci men Type: VENOUS BLOOD SPECIMEN Ordering Facility: [facility] Address: [address] [place] [address] Result Comment: Cuto ff threshold at 300 ng/mL. Performed By: #### 2 4344-4 #### [facility] CLIA [id number] [address] [place] [address] [place] Phencyclidine Ql (U) Negative Normal Negative [facility] Comment on above: Order Comment: Speci men Type: VENOUS BLOOD SPECIMEN Ordering Facility: [facility] Address: [address] [place] [address] Result Comment: Cuto ff threshold at 25 ng/mL. Performed By: #### 2 4344-4 #### [facility] CLIA [id number] [address] [place] [address] [place] US LEG VEIN DVT MITCH VAS LABo n 12-25-2023 LEG VEIN DVT MITCH VAS LAB Non-Invasive Vascular Laboratory [facility] Lower Extremity Venous Duplex Bilateral/Complete Date of [...] Interpreting physician: Edison Potter MD Final CC [employer] [facility] Image : [id number] See Link below for Image Normal [facility] Urinalysis complete panel (U )on 12-25-2023 Bacteria LM.HPF (Urine sed) [#/Area] None Seen Normal None Seen [facility] Comment on above: Order Comment: Speci men Type: URINE SPECIMEN Ordering Facility: [facility] Address: [address] [place] [address] Performed By: #### 2 4356-8 #### [facility] CLIA [id number] [address] [place] [address] [place] Bilirubin Ql (U) Negative Normal Negative [facility] Comment on above: Order Comment: Speci men Type: URINE SPECIMEN Ordering Facility: [facility] Address: [address] [place] [address] Performed By: #### 2 4356-8 #### [facility] CLIA [id number] [address] [place] [address] [place] Clarity (Unsp spec) Clear Normal Clear [facility] Comment on above: Order Comment: Speci men Type: URINE SPECIMEN Ordering Facility: [facility] Address: [address] [place] [address] Performed By: #### 2 4356-8 #### [facility] CLIA [id number] [address] [place] [address] [place] Color (U) Straw Normal Yellow [facility] Comment on above: Order Comment: Speci men Type: URINE SPECIMEN Ordering Facility: [facility] Address: [address] [place] [address] Performed By: #### 2 4356-8 #### [facility] CLIA [id number] [address] [place] [address] [place] Epithelial cells LM.HPF (Urine sed) [#/Area] Few Normal [facility] Comment on above: Order Comment: Speci men Type: URINE SPECIMEN Ordering Facility: [facility] Address: [address] [place] [address] Performed By: #### 2 4356-8 #### [facility] CLIA [id number] [address] [place] [address] [place] Glucose Test strip (U) [Mass/Vol] 3+ Abnormal Negative [facility] Comment on above: Order Comment: Speci men Type: URINE SPECIMEN Ordering Facility: [facility] Address: [address] [place] [address] Performed By: #### 2 4356-8 #### [facility] CLIA [id number] [address] [place] [address] [place] Hemoglobin Ql (U) Negative Normal Negative [facility] Comment on above: Order Comment: Speci men Type: URINE SPECIMEN Ordering Facility: [facility] Address: [address] [place] [address] Performed By: #### 2 4356-8 #### [facility] CLIA [id number] [address] [place] [address] [place] Ketones Ql (U) Negative Normal Negative [facility] Comment on above: Order Comment: Speci men Type: URINE SPECIMEN Ordering Facility: [facility] Address: [address] [place] [address] Performed By: #### 2 4356-8 #### [facility] CLIA [id number] [address] [place] [address] [place] Leukocyte esterase Test strip Ql (U) Negative Normal Negative [facility] Comment on above: Order Comment: Speci men Type: URINE SPECIMEN Ordering Facility: [facility] Address: [address] [place] [address] Performed By: #### 2 4356-8 #### [facility] CLIA [id number] [address] [place] [address] [place] Nitrite Ql (U) Negative Normal Negative [facility] Comment on above: Order Comment: Speci men Type: URINE SPECIMEN Ordering Facility: [facility] Address: [address] [place] [address] Performed By: #### 2 4356-8 #### [facility] CLIA [id number] [address] [place] [address] [place] pH (U) 7.0 [pH] Normal 5.0-8.0 [facility] Comment on above: Order Comment: Speci men Type: URINE SPECIMEN Ordering Facility: [facility] Address: [address] [place] [address] Performed By: #### 2 4356-8 #### [facility] CLIA [id number] [address] [place] [address] [place] Protein (U) [Mass/Vol] Negative Normal Negative [facility] Comment on above: Order Comment: Speci men Type: URINE SPECIMEN Ordering Facility: [facility] Address: [address] [place] [address] Performed By: #### 2 4356-8 #### [facility] CLIA [id number] [address] [place] [address] [place] RBC LM.HPF (Urine sed) [#/Area] 0-3 /HPF Normal 0-3 /HPF [facility] Comment on above: Order Comment: Speci men Type: URINE SPECIMEN Ordering Facility: [facility] Address: [address] [place] [address] Performed By: #### 2 4356-8 #### [facility] CLIA [id number] [address] [place] [address] [place] Specific gravity (U) [Rel density] >1.030 High 1.005-1.030 [facility] Comment on above: Order Comment: Speci men Type: URINE SPECIMEN Ordering Facility: [facility] Address: [address] [place] [address] Performed By: #### 2 4356-8 #### [facility] CLIA [id number] [address] [place] [address] Urobilinogen Ql (U) Negative Normal Negative [facility] Comment on above: Order Comment: Speci men Type: URINE SPECIMEN Ordering Facility: [facility] Address: [address] [place] [address] Performed By: #### 2 4356-8 #### [facility] CLIA [id number] [address] [place] [address] [place] WBC LM.HPF (Urine sed) [#/Area] 0-5 /HPF Normal 0-5 /HPF [facility] Comment on above: Order Comment: Speci men Type: URINE SPECIMEN Ordering Facility: [facility] Address: [address] [place] [address] Performed By: #### 2 4356-8 #### [facility] CLIA [id number] [address] [place] [address] [place] Culture, Fungus 8482on 12-12 CUF Normal [facility] Comment on above: Performed By: #### M 100.3000, M600.2000, M100.4001, M600.2200, M100.2000 ####[facility] [address] [place], [address] Fungus Stain 8136on 12-13-19 24 FUNST Normal [facility] Comment on above: Performed By: #### M 100.3000, M600.2000, M100.4001, M600.2200, M100.2000 ####[facility] [address] [place], [address] Abdomen/Pelvis W IV Cont ONL Yon 11-21-2023 Abdomen/Pelvis W IV Cont ONLY Normal [facility] Basic Metabolic Profile (BMP )on 11-21-2023 BUN/CRE 12.2 RATIO Normal 10-20 [facility] Comment on above: Performed By: #### L 500.2500, L100.0100 ####[facility] [address] [place], [address] CA,Total 8.7 mg/dL Normal 8.5-10.1 [facility] Comment on above: Performed By: #### L 500.2500, L100.0100 ####[facility] [address] [place], [address] Chloride [Moles/Vol] 105 mmol/L Normal 98-107 [facility] Comment on above: Performed By: #### L 500.2500, L100.0100 ####[facility] [address] [place], [address] CO2 [Moles/Vol] 33.0 mmol/L High 21.0-32.0 [facility] Comment on above: Performed By: #### L 500.2500, L100.0100 ####[facility] [address] [place], [address] Creatinine [Mass/Vol] 0.41 mg/dL Low 0.55-1.02 [facility] Comment on above: Result Comment: The validity of the calculated GFR GFRAA in patients over70 years has not been determined. Clinical correlation isessential. Performed By: #### L 500.2500, L100.0100 ####[facility] [address] [place], [address] ECRCL 142.79 ml/min Normal [facility] Comment on above: Performed By: #### L 500.2500, L100.0100 ####[facility] [address] [place], [address] EST GFR - AA 209 mL/min Normal >60 [facility] Comment on above: Result Comment: Afri can [place] GFR Calc Performed By: #### L 500.2500, L100.0100 ####[facility] [address] [place], [address] GAP 3 Low 5-15 [facility] Comment on above: Performed By: #### L 500.2500, L100.0100 ####[facility] [address] [place], [address] GFR/1.73 sq M.predicted among non-blacks MDRD (S/P/Bld) [Vol rate/Area] 172 mL/min/{1.73_m2} Normal >60 [facility] Comment on above: Result Comment: Non- GFR Calc Performed By: #### L 500.2500, L100.0100 ####[facility] [address] [place], [address] Glucose [Mass/Vol] 358 mg/dL High 74-106 [facility] Comment on above: Result Comment: Gluc ose result greater than or equal to 200 mg/dLsuggests DIABETES MELLITUS per A.D.A. criteria. Performed By: #### L 500.2500, L100.0100 ####[facility] [address] [place], [address] Potassium [Moles/Vol] 3.2 mmol/L Low 3.5-5.1 [facility] Comment on above: Performed By: #### L 500.2500, L100.0100 ####[facility] [address] [place], [address] Sodium [Moles/Vol] 141 mmol/L Normal 136-145 [facility] Comment on above: Performed By: #### L 500.2500, L100.0100 ####[facility] [address] [place], [address] Urea nitrogen [Mass/Vol] 5 mg/dL Low 7-18 [facility] Comment on above: Performed By: #### L 500.2500, L100.0100 ####[facility] [address] [place], [address] CBC W/Diff, Automatedon 08-0 8-4 Absolute Lymph 1.12 X10 3/uL Normal 0.83-4.51 [facility] Comment on above: Performed By: #### L 500.2500, L100.0100 ####[facility] [address] [place], [address] Absolute Neut 3.0 X10 3/uL Normal 2.0-7.7 [facility] Comment on above: Performed By: #### L 500.2500, L100.0100 ####[facility] [address] [place], [address] Basophils/100 WBC (Bld) 1.3 % High 0-1 [facility] Comment on above: Performed By: #### L 500.2500, L100.0100 ####[facility] [address] [place], [address] Eosinophils/100 WBC (Bld) 3.3 % Normal 0-5 [facility] Comment on above: Performed By: #### L 500.2500, L100.0100 ####[facility] [address] [place], [address] Erythrocyte distribution width (RBC) [Ratio] 13.2 % Normal 11.6-14.6 [facility] Comment on above: Performed By: #### L 500.2500, L100.0100 ####[facility] [address] [place], [address] Hematocrit (Bld) [Volume fraction] 47.0 % Normal 37-47 [facility] Comment on above: Performed By: #### L 500.2500, L100.0100 ####[facility] [address] [place], [address] Hemoglobin (Bld) [Mass/Vol] 15.5 g/dL High 12.0-15.0 [facility] Comment on above: Performed By: #### L 500.2500, L100.0100 ####[facility] [address] [place], [address] IG% 1.500 High 0.0-0.9 [facility] Comment on above: Result Comment: IG% - Immature Granulocytes (promyelocytes, myelocytes andmetamyelocytes) > 1% indicates that a LEFT SHIFT is Present. Performed By: #### L 500.2500, L100.0100 ####[facility] [address] [place], [address] Lymphocytes/100 WBC (Bld) 23.4 % Normal 19-41 [facility] Comment on above: Performed By: #### L 500.2500, L100.0100 ####[facility] [address] [place], [address] MCH (RBC) [Entitic mass] 28.9 pg Normal 27.0-32.0 [facility] Comment on above: Performed By: #### L 500.2500, L100.0100 ####[facility] [address] [place], [address] MCHC (RBC) [Mass/Vol] 33.0 g/dL Normal 32-36 [facility] Comment on above: Performed By: #### L 500.2500, L100.0100 ####[facility] [address] [place], [address] MCV (RBC) [Entitic vol] 87.5 fL Normal 81-99 [facility] Comment on above: Performed By: #### L 500.2500, L100.0100 ####[facility] [address] [place], [address] Monocytes/100 WBC (Bld) 8.6 % Normal 0-10 [facility] Comment on above: Performed By: #### L 500.2500, L100.0100 ####[facility] [address] [place], [address] Neutrophils/100 WBC (Bld) 61.9 % Normal 47-70 [facility] Comment on above: Performed By: #### L 500.2500, L100.0100 ####[facility] [address] [place], [address] Nucleated RBC (Bld) [#/Vol] 0 10*3/uL Normal 0-5 [facility] Comment on above: Performed By: #### L 500.2500, L100.0100 ####[facility] [address] [place], [address] Platelet mean volume (Bld) [Entitic vol] 9.9 fL Normal 6.2-12.0 [facility] Comment on above: Performed By: #### L 500.2500, L100.0100 ####[facility] [address] [place], [address] Platelets (Bld) [#/Vol] 228 10*3/uL Normal 150-450 [facility] Comment on above: Performed By: #### L 500.2500, L100.0100 ####[facility] [address] [place], [address] RBC (Bld) [#/Vol] 5.37 10*6/uL Normal 4.2-5.4 [facility] Comment on above: Performed By: #### L 500.2500, L100.0100 ####[facility] [address] [place], [address] RDW SD 42.0 fl Normal 35.1-43.9 [facility] Comment on above: Performed By: #### L 500.2500, L100.0100 ####[facility] [address] [place], [address] WBC (Bld) [#/Vol] 4.8 10*3/uL Normal 4.4-11.0 [facility] Comment on above: Performed By: #### L 500.2500, L100.0100 ####[facility] [address] [place], [address] Emergency Department Summary on 11-21-2023 Emergency Department Summary Normal [facility] Basic Metabolic Profile (BMP )on 11-17-2023 BUN/CRE 14.2 RATIO Normal 10-20 [facility] Comment on above: Performed By: #### L 503.6005, L500.2500, L100.0100 ####[facility] [address] [place], [address] CA,Total 9.1 mg/dL Normal 8.5-10.1 [facility] Comment on above: Performed By: #### L 503.6005, L500.2500, L100.0100 ####[facility] [address] [place], [address] Chloride [Moles/Vol] 104 mmol/L Normal 98-107 [facility] Comment on above: Performed By: #### L 503.6005, L500.2500, L100.0100 ####[facility] [address] [place], [address] CO2 [Moles/Vol] 32.0 mmol/L Normal 21.0-32.0 [facility] Comment on above: Performed By: #### L 503.6005, L500.2500, L100.0100 ####[facility] [address] [place], [address] Creatinine [Mass/Vol] 0.63 mg/dL Normal 0.55-1.02 [facility] Comment on above: Result Comment: The validity of the calculated GFR GFRAA in patients over70 years has not been determined. Clinical correlation isessential. Performed By: #### L 503.6005, L500.2500, L100.0100 ####[facility] [address] [place], [address] ECRCL 92.93 ml/min Normal [facility] Comment on above: Performed By: #### L 503.6005, L500.2500, L100.0100 ####[facility] [address] [place], [address] EST GFR - AA 126 mL/min Normal >60 [facility] Comment on above: Result Comment: Afri can [place] GFR Calc Performed By: #### L 503.6005, L500.2500, L100.0100 ####[facility] [address] [place], [address] GAP 5 Normal 5-15 [facility] Comment on above: Performed By: #### L 503.6005, L500.2500, L100.0100 ####[facility] [address] [place], [address] GFR/1.73 sq M.predicted among non-blacks MDRD (S/P/Bld) [Vol rate/Area] 104 mL/min/{1.73_m2} Normal >60 [facility] Comment on above: Result Comment: Non- GFR Calc Performed By: #### L 503.6005, L500.2500, L100.0100 ####[facility] [address] [place], [address] Glucose [Mass/Vol] 383 mg/dL High 74-106 [facility] Comment on above: Result Comment: Gluc ose result greater than or equal to 200 mg/dLsuggests DIABETES MELLITUS per A.D.A. criteria. Performed By: #### L 503.6005, L500.2500, L100.0100 ####[facility] [address] [place], [address] Potassium [Moles/Vol] 3.4 mmol/L Low 3.5-5.1 [facility] Comment on above: Performed By: #### L 503.6005, L500.2500, L100.0100 ####[facility] [address] [place], [address] Sodium [Moles/Vol] 141 mmol/L Normal 136-145 [facility] Comment on above: Performed By: #### L 503.6005, L500.2500, L100.0100 ####[facility] [address] [place], [address] Urea nitrogen [Mass/Vol] 9 mg/dL Normal 7-18 [facility] Comment on above: Performed By: #### L 503.6005, L500.2500, L100.0100 ####[facility] [address] [place], [address] Bedside Glucoseon 11-17-2023 FINGERSTICK GLU 345 mg/dL High 74-106 [facility] Comment on above: Result Comment: DELLA GEMENT OF PATIENT CARE PER NURSING PROTOCOL Performed By: #### L 501.080 ####[facility] [address] [place], [address] CBC W/Diff, Automatedon Absolute Lymph 1.46 X10 3/uL Normal 0.83-4.51 [facility] Comment on above: Performed By: #### L 503.6005, L500.2500, L100.0100 ####[facility] [address] [place], [address] Absolute Neut 4.5 X10 3/uL Normal 2.0-7.7 [facility] Comment on above: Performed By: #### L 503.6005, L500.2500, L100.0100 ####[facility] [address] [place], [address] Basophils/100 WBC (Bld) 1.6 % High 0-1 [facility] Comment on above: Performed By: #### L 503.6005, L500.2500, L100.0100 ####[facility] [address] [place], [address] Eosinophils/100 WBC (Bld) 3.2 % Normal 0-5 [facility] Comment on above: Performed By: #### L 503.6005, L500.2500, L100.0100 ####[facility] [address] [place], [address] Erythrocyte distribution width (RBC) [Ratio] 13.0 % Normal 11.6-14.6 [facility] Comment on above: Performed By: #### L 503.6005, L500.2500, L100.0100 ####[facility] [address] [place], [address] Hematocrit (Bld) [Volume fraction] 47.5 % High 37-47 [facility] Comment on above: Performed By: #### L 503.6005, L500.2500, L100.0100 ####[facility] [address] [place], [address] Hemoglobin (Bld) [Mass/Vol] 15.5 g/dL High 12.0-15.0 [facility] Comment on above: Performed By: #### L 503.6005, L500.2500, L100.0100 ####[facility] [address] [place], [address] IG% 2.700 High 0.0-0.9 [facility] Comment on above: Result Comment: IG% - Immature Granulocytes (promyelocytes, myelocytes andmetamyelocytes) > 1% indicates that a LEFT SHIFT is Present. Performed By: #### L 503.6005, L500.2500, L100.0100 ####[facility] [address] [place], [address] Lymphocytes/100 WBC (Bld) 19.7 % Normal 19-41 [facility] Comment on above: Performed By: #### L 503.6005, L500.2500, L100.0100 ####[facility] [address] [place], [address] MCH (RBC) [Entitic mass] 29.1 pg Normal 27.0-32.0 [facility] Comment on above: Performed By: #### L 503.6005, L500.2500, L100.0100 ####[facility] [address] [place], [address] MCHC (RBC) [Mass/Vol] 32.6 g/dL Normal 32-36 [facility] Comment on above: Performed By: #### L 503.6005, L500.2500, L100.0100 ####[facility] [address] [place], [address] MCV (RBC) [Entitic vol] 89.3 fL Normal 81-99 [facility] Comment on above: Performed By: #### L 503.6005, L500.2500, L100.0100 ####[facility] [address] [place], [address] Monocytes/100 WBC (Bld) 12.0 % High 0-10 [facility] Comment on above: Performed By: #### L 503.6005, L500.2500, L100.0100 ####[facility] [address] [place], [address] Neutrophils/100 WBC (Bld) 60.8 % Normal 47-70 [facility] Comment on above: Performed By: #### L 503.6005, L500.2500, L100.0100 ####[facility] [address] [place], [address] Nucleated RBC (Bld) [#/Vol] 0 10*3/uL Normal 0-5 [facility] Comment on above: Performed By: #### L 503.6005, L500.2500, L100.0100 ####[facility] [address] [place], [address] Platelet mean volume (Bld) [Entitic vol] 10.5 fL Normal 6.2-12.0 [facility] Comment on above: Performed By: #### L 503.6005, L500.2500, L100.0100 ####[facility] [address] [place], [address] Platelets (Bld) [#/Vol] 292 10*3/uL Normal 150-450 [facility] Comment on above: Performed By: #### L 503.6005, L500.2500, L100.0100 ####[facility] [address] [place], [address] RBC (Bld) [#/Vol] 5.32 10*6/uL Normal 4.2-5.4 [facility] Comment on above: Performed By: #### L 503.6005, L500.2500, L100.0100 ####[facility] [address] [place], [address] RDW SD 42.3 fl Normal 35.1-43.9 [facility] Comment on above: Performed By: #### L 503.6005, L500.2500, L100.0100 ####[facility] [address] [place], [address] WBC (Bld) [#/Vol] 7.4 10*3/uL Normal 4.4-11.0 [facility] Comment on above: Performed By: #### L 503.6005, L500.2500, L100.0100 ####[facility] [address] [place], [address] Emergency Department Summary on 11-17-2023 Emergency Department Summary Normal [facility] Lactic Acidon 11-17-2023 Lactate [Moles/Vol] 1.7 mmol/L Normal 0.4-1.9 [facility] Comment on above: Order Comment: Y Performed By: #### L 503.6005, L500.2500, L100.0100 ####[facility] [address] [place], [address] Culture, Anaerobic Any Sourc rashmi 11-16-2023 CUAN COLLECTED IN OR, ABDOMINAL WALL ABSCESS No anaerobic bacteria isolated. [facility] Comment on above: Performed By: #### M 100.3000, M600.2000, M100.4001, M600.2200, M100.1999 ####[facility] [address] [place], [address] Culture, Blood (WB)on 2023 CUB Blood cultures x2, from two different sites No growth in 5 days. [facility] Comment on above: Performed By: #### M 200.1000 ####[facility] [address] [place], [address] Wound Cultureon 11-15-2023 WC [facility] Comment on above: Performed By: #### M 100.3000, M600.2000, M100.4001, M600.2200, M100.1999 ####[facility] [address] [place], [address] Basic Metabolic Profile (BMP )on 11-14-2023 BUN Normal 7-18 [facility] Comment on above: Result Comment: Canc elled via OM: Order cancelled - Patient discharged Performed By: #### L 500.2500, L100.0100 ####[facility] [address] [place], [address] BUN/CRE Normal 10-20 [facility] Comment on above: Result Comment: Canc elled via OM: Order cancelled - Patient discharged Performed By: #### L 500.2500, L100.0100 ####[facility] [address] [place], [address] CA,Total Normal 8.5-10.1 [facility] Comment on above: Result Comment: Canc elled via OM: Order cancelled - Patient discharged Performed By: #### L 500.2500, L100.0100 ####[facility] [address] [place], [address] CL Normal 98-107 [facility] Comment on above: Result Comment: Canc elled via OM: Order cancelled - Patient discharged Performed By: #### L 500.2500, L100.0100 ####[facility] [address] [place], [address] CO2 Normal 21.0-32.0 [facility] Comment on above: Result Comment: Canc elled via OM: Order cancelled - Patient discharged Performed By: #### L 500.2500, L100.0100 ####[facility] [address] [place], [address] CREAT,SERUM Normal 0.55-1.02 [facility] Comment on above: Result Comment: Canc elled via OM: Order cancelled - Patient discharged Performed By: #### L 500.2500, L100.0100 ####[facility] [address] [place], [address] EST GFR Normal >60 [facility] Comment on above: Result Comment: Canc elled via OM: Order cancelled - Patient discharged Performed By: #### L 500.2500, L100.0100 ####[facility] [address] [place], [address] EST GFR - AA Normal >60 [facility] Comment on above: Result Comment: Canc elled via OM: Order cancelled - Patient discharged Performed By: #### L 500.2500, L100.0100 ####[facility] [address] [place], [address] GAP Normal 5-15 [facility] Comment on above: Result Comment: Canc elled via OM: Order cancelled - Patient discharged Performed By: #### L 500.2500, L100.0100 ####[facility] [address] [place], [address] GLU Normal 74-106 [facility] Comment on above: Result Comment: Canc elled via OM: Order cancelled - Patient discharged Performed By: #### L 500.2500, L100.0100 ####[facility] [address] [place], [address] Potassium Normal 3.5-5.1 [facility] Comment on above: Result Comment: Canc elled via OM: Order cancelled - Patient discharged Performed By: #### L 500.2500, L100.0100 ####[facility] [address] [place], [address] Basic Metabolic Profile (BMP) Normal 136-145 [facility] Comment on above: Result Comment: Canc elled via OM: Order cancelled - Patient discharged Performed By: #### L 500.2500, L100.0100 ####[facility] [address] [place], [address] CBC W/Diff, Automatedon 08-0 Absolute Neut Normal 2.0-7.7 [facility] Comment on above: Result Comment: Canc elled via OM: Order cancelled - Patient discharged Performed By: #### L 500.2500, L100.0100 ####[facility] [address] [place], [address] HCT Normal 37-47 [facility] Comment on above: Result Comment: Canc elled via OM: Order cancelled - Patient discharged Performed By: #### L 500.2500, L100.0100 ####[facility] [address] [place], [address] HGB Normal 12.0-15.0 [facility] Comment on above: Result Comment: Canc elled via OM: Order cancelled - Patient discharged Performed By: #### L 500.2500, L100.0100 ####[facility] [address] [place], [address] MCH Normal 27.0-32.0 [facility] Comment on above: Result Comment: Canc elled via OM: Order cancelled - Patient discharged Performed By: #### L 500.2500, L100.0100 ####[facility] [address] [place], [address] MCHC Normal 32-36 [facility] Comment on above: Result Comment: Canc elled via OM: Order cancelled - Patient discharged Performed By: #### L 500.2500, L100.0100 ####[facility] [address] [place], [address] MCV Normal 81-99 [facility] Comment on above: Result Comment: Canc elled via OM: Order cancelled - Patient discharged Performed By: #### L 500.2500, L100.0100 ####[facility] [address] [place], [address] NEUT% Normal 47-70 [facility] Comment on above: Result Comment: Canc elled via OM: Order cancelled - Patient discharged Performed By: #### L 500.2500, L100.0100 ####[facility] [address] [place], [address] PLT Normal 150-450 [facility] Comment on above: Result Comment: Canc elled via OM: Order cancelled - Patient discharged Performed By: #### L 500.2500, L100.0100 ####[facility] [address] [place], [address] RBC Normal 4.2-5.4 [facility] Comment on above: Result Comment: Canc elled via OM: Order cancelled - Patient discharged Performed By: #### L 500.2500, L100.0100 ####[facility] [address] [place], [address] RDW CV Normal 11.6-14.6 [facility] Comment on above: Result Comment: Canc elled via OM: Order cancelled - Patient discharged Performed By: #### L 500.2500, L100.0100 ####[facility] [address] [place], [address] RDW SD Normal 35.1-43.9 [facility] Comment on above: Result Comment: Canc elled via OM: Order cancelled - Patient discharged Performed By: #### L 500.2500, L100.0100 ####[facility] [address] [place], [address] WBC Normal 4.4-11.0 [facility] Comment on above: Result Comment: Canc elled via OM: Order cancelled - Patient discharged Performed By: #### L 500.2500, L100.0100 ####[facility] [address] [place], [address] Gram Stainon 11-14-2023 GS COLLECTED IN OR, ABDOMINAL WALL ABSCESS Gram Stain Rare Gram positive cocci 1+ White Blood Cells 4+ Red Blood Cells No Epithelial cells Normal [facility] Comment on above: Performed By: #### M 100.3000, M600.2000, M100.4001, M600.2200, M100.2000 ####[facility] [address] [place], [address] 12 Lead EKGon 11-13-2023 12 Lead EKG Normal [facility] Basic Metabolic Profile (BMP )on 11-13-2023 BUN/CRE 20.5 RATIO High 10-20 [facility] Comment on above: Performed By: #### L 501.9985, L500.2500 ####[facility] [address] [place], [address] CA,Total 8.2 mg/dL Low 8.5-10.1 [facility] Comment on above: Performed By: #### L 501.9985, L500.2500 ####[facility] [address] [place], [address] Chloride [Moles/Vol] 108 mmol/L High 98-107 [facility] Comment on above: Performed By: #### L 501.9985, L500.2500 ####[facility] [address] [place], [address] CO2 [Moles/Vol] 29.0 mmol/L Normal 21.0-32.0 [facility] Comment on above: Performed By: #### L 501.9985, L500.2500 ####[facility] [address] [place], [address] Creatinine [Mass/Vol] 0.34 mg/dL Low 0.55-1.02 [facility] Comment on above: Result Comment: The validity of the calculated GFR GFRAA in patients over70 years has not been determined. Clinical correlation isessential. Performed By: #### L 501.9985, L500.2500 ####[facility] [address] [place], [address] ECRCL 172.19 ml/min Normal [facility] Comment on above: Performed By: #### L 501.9985, L500.2500 ####[facility] [address] [place], [address] EST GFR - AA 258 mL/min Normal >60 [facility] Comment on above: Result Comment: Afri can [place] GFR Calc Performed By: #### L 501.9985, L500.2500 ####[facility] [address] [place], [address] GAP 3 Low 5-15 [facility] Comment on above: Performed By: #### L 501.9985, L500.2500 ####[facility] [address] [place], [address] GFR/1.73 sq M.predicted among non-blacks MDRD (S/P/Bld) [Vol rate/Area] 213 mL/min/{1.73_m2} Normal >60 [facility] Comment on above: Result Comment: Non- GFR Calc Performed By: #### L 501.9985, L500.2500 ####[facility] [address] [place], [address] Glucose [Mass/Vol] 277 mg/dL High 74-106 [facility] Comment on above: Result Comment: Gluc ose result greater than or equal to 200 mg/dLsuggests DIABETES MELLITUS per A.D.A. criteria. Performed By: #### L 501.9985, L500.2500 ####[facility] [address] [place], [address] Potassium [Moles/Vol] 3.3 mmol/L Low 3.5-5.1 [facility] Comment on above: Performed By: #### L 501.9985, L500.2500 ####[facility] [address] [place], [address] Sodium [Moles/Vol] 140 mmol/L Normal 136-145 [facility] Comment on above: Performed By: #### L 501.9985, L500.2500 ####[facility] [address] [place], [address] Urea nitrogen [Mass/Vol] 7 mg/dL Normal 7-18 [facility] Comment on above: Performed By: #### L 501.9985, L500.2500 ####[facility] [address] [place], [address] Bedside Glucoseon 11-13-2023 FINGERSTICK GLU 195 mg/dL High 74-106 [facility] Comment on above: Result Comment: DELLA GEMENT OF PATIENT CARE PER NURSING PROTOCOL Performed By: #### L 501.080 ####[facility] [address] [place], [address] FINGERSTICK GLU 258 mg/dL High 74-106 [facility] Comment on above: Result Comment: DELLA GEMENT OF PATIENT CARE PER NURSING PROTOCOL Performed By: #### L 501.080 ####[facility] [address] [place], [address] Consultation - Cardiologyon 11-13-2023 Consultation - Cardiology Normal [facility] Hemoglobin A1con 11-13-2023 HbA1c (Bld) [Mass fraction] 11.5 % High 3.8-5.6 [facility] Comment on above: Result Comment: Norm al < 5.7 % Prediabetic 5.7 - 6.4 % Diabetic >or= 6.5 % Please note range changes. Performed By: #### L 501.9985, L500.2500 ####[facility] [address] [place], [address] L501.4020on 11-13-2023 TROPONIN-I HS 4 pg/mL Normal 3.0-54.0 [facility] Comment on above: Order Comment: Comme nts: 1 time post op'TROP' Serial specimen #1, #2 or #3: 1 Result Comment: Plea se Note: New Test Units and Gender Specific Reference Ranges. For more information see Policy Stat Procedure [place] High Sensitivity Troponin (TNIH) and attachments. Performed By: #### L 501.4020 ####[facility] [address] [place], [address] MR/POSTOP.ANEon 11-13-2023 MR/POSTOP.ANE Normal [facility] MR/UNDIRWSQ9tb 11-13-2023 MR/POSTOPAN2 Normal [facility] Operative Reporton Operative Report Normal [facility] Urine Cultureon 11-13-2023 URC Normal [facility] Comment on above: Performed By: #### M 100.2200 ####[facility] [address] [place], [address] Basic Metabolic Profile (BMP )on 11-12-2023 BUN/CRE 15.9 RATIO Normal 10-20 [facility] Comment on above: Performed By: #### L 500.2500 ####[facility] [address] [place], [address] CA,Total 8.1 mg/dL Low 8.5-10.1 [facility] Comment on above: Performed By: #### L 500.2500 ####[facility] [address] [place], [address] Chloride [Moles/Vol] 109 mmol/L High 98-107 [facility] Comment on above: Performed By: #### L 500.2500 ####[facility] [address] [place], [address] CO2 [Moles/Vol] 30.0 mmol/L Normal 21.0-32.0 [facility] Comment on above: Performed By: #### L 500.2500 ####[facility] [address] [place], [address] Creatinine [Mass/Vol] 0.31 mg/dL Low 0.55-1.02 [facility] Comment on above: Result Comment: The validity of the calculated GFR GFRAA in patients over70 years has not been determined. Clinical correlation isessential. Performed By: #### L 500.2500 ####[facility] [address] [place], [address] ECRCL 188.85 ml/min Normal [facility] Comment on above: Performed By: #### L 500.2500 ####[facility] [address] [place], [address] EST GFR - AA 284 mL/min Normal >60 [facility] Comment on above: Result Comment: Afri can [place] GFR Calc Performed By: #### L 500.2500 ####[facility] [address] [place], [address] GAP 4 Low 5-15 [facility] Comment on above: Performed By: #### L 500.2500 ####[facility] [address] [place], [address] GFR/1.73 sq M.predicted among non-blacks MDRD (S/P/Bld) [Vol rate/Area] 235 mL/min/{1.73_m2} Normal >60 [facility] Comment on above: Result Comment: Non- GFR Calc Performed By: #### L 500.2500 ####[facility] [address] [place], [address] Glucose [Mass/Vol] 138 mg/dL High 74-106 [facility] Comment on above: Result Comment: Fast ing Glucose result greater than or equal to 126 mg/dLsuggests DIABETES MELLITUS per A.D.A. criteria. Performed By: #### L 500.2500 ####[facility] [address] [place], [address] Potassium [Moles/Vol] 3.2 mmol/L Low 3.5-5.1 [facility] Comment on above: Performed By: #### L 500.2500 ####[facility] [address] [place], [address] Sodium [Moles/Vol] 143 mmol/L Normal 136-145 [facility] Comment on above: Performed By: #### L 500.2500 ####[facility] [address] [place], [address] Urea nitrogen [Mass/Vol] 5 mg/dL Low 7-18 [facility] Comment on above: Performed By: #### L 500.2500 ####[facility] [address] [place], [address] Bedside Glucoseon 11-12-2023 FINGERSTICK GLU 194 mg/dL High 74-106 [facility] Comment on above: Result Comment: DELLA GEMENT OF PATIENT CARE PER NURSING PROTOCOL Performed By: #### L 501.080 ####[facility] [address] [place], [address] FINGERSTICK GLU 199 mg/dL High 74-106 [facility] Comment on above: Result Comment: DELLA GEMENT OF PATIENT CARE PER NURSING PROTOCOL Performed By: #### L 501.080 ####[facility] [address] [place], [address] FINGERSTICK GLU 150 mg/dL High 74-106 [facility] Comment on above: Result Comment: DELLA GEMENT OF PATIENT CARE PER NURSING PROTOCOL Performed By: #### L 501.080 ####[facility] [address] [place], [address] FINGERSTICK GLU 151 mg/dL High 74-106 [facility] Comment on above: Result Comment: DELLA GEMENT OF PATIENT CARE PER NURSING PROTOCOL Performed By: #### L 501.080 ####[facility] [address] [place], [address] FINGERSTICK GLU 236 mg/dL High 74-106 [facility] Comment on above: Result Comment: DELLA GEMENT OF PATIENT CARE PER NURSING PROTOCOL Performed By: #### L 501.080 ####[facility] [address] [place], [address] CBC W/Diff, Automatedon 07-3 0-2024 Absolute Lymph 1.45 X10 3/uL Normal 0.83-4.51 [facility] Comment on above: Performed By: #### L 100.0100 ####[facility] [address] [place], [address] Absolute Neut 6.2 X10 3/uL Normal 2.0-7.7 [facility] Comment on above: Performed By: #### L 100.0100 ####[facility] [address] [place], [address] Basophils/100 WBC (Bld) 0.4 % Normal 0-1 [facility] Comment on above: Performed By: #### L 100.0100 ####[facility] [address] [place], [address] Eosinophils/100 WBC (Bld) 1.3 % Normal 0-5 [facility] Comment on above: Performed By: #### L 100.0100 ####[facility] [address] [place], [address] Erythrocyte distribution width (RBC) [Ratio] 13.1 % Normal 11.6-14.6 [facility] Comment on above: Performed By: #### L 100.0100 ####[facility] [address] [place], [address] Hematocrit (Bld) [Volume fraction] 41.0 % Normal 37-47 [facility] Comment on above: Performed By: #### L 100.0100 ####[facility] [address] [place], [address] Hemoglobin (Bld) [Mass/Vol] 13.4 g/dL Normal 12.0-15.0 [facility] Comment on above: Performed By: #### L 100.0100 ####[facility] [address] [place], [address] IG% 0.700 Normal 0.0-0.9 [facility] Comment on above: Result Comment: IG% - Immature Granulocytes (promyelocytes, myelocytes andmetamyelocytes) > 1% indicates that a LEFT SHIFT is Present. Performed By: #### L 100.0100 ####[facility] [address] [place], [address] Lymphocytes/100 WBC (Bld) 16.3 % Low 19-41 [facility] Comment on above: Performed By: #### L 100.0100 ####[facility] [address] [place], [address] MCH (RBC) [Entitic mass] 29.1 pg Normal 27.0-32.0 [facility] Comment on above: Performed By: #### L 100.0100 ####[facility] [address] [place], [address] MCHC (RBC) [Mass/Vol] 32.7 g/dL Normal 32-36 [facility] Comment on above: Performed By: #### L 100.0100 ####[facility] [address] [place], [address] MCV (RBC) [Entitic vol] 88.9 fL Normal 81-99 [facility] Comment on above: Performed By: #### L 100.0100 ####[facility] [address] [place], [address] Monocytes/100 WBC (Bld) 12.1 % High 0-10 [facility] Comment on above: Performed By: #### L 100.0100 ####[facility] [address] [place], [address] Neutrophils/100 WBC (Bld) 69.2 % Normal 47-70 [facility] Comment on above: Performed By: #### L 100.0100 ####[facility] [address] [place], [address] Nucleated RBC (Bld) [#/Vol] 0 10*3/uL Normal 0-5 [facility] Comment on above: Performed By: #### L 100.0100 ####[facility] [address] [place], [address] Platelet mean volume (Bld) [Entitic vol] 10.8 fL Normal 6.2-12.0 [facility] Comment on above: Performed By: #### L 100.0100 ####[facility] [address] [place], [address] Platelets (Bld) [#/Vol] 188 10*3/uL Normal 150-450 [facility] Comment on above: Performed By: #### L 100.0100 ####[facility] [address] [place], [address] RBC (Bld) [#/Vol] 4.61 10*6/uL Normal 4.2-5.4 [facility] Comment on above: Performed By: #### L 100.0100 ####[facility] [address] [place], [address] RDW SD 42.5 fl Normal 35.1-43.9 [facility] Comment on above: Performed By: #### L 100.0100 ####[facility] [address] [place], [address] WBC (Bld) [#/Vol] 8.9 10*3/uL Normal 4.4-11.0 [facility] Comment on above: Performed By: #### L 100.0100 ####[facility] [address] [place], [address] Consultation - Surgicalon Consultation - Surgical Normal [facility] Other Unlisted US Procedureo n 11-12-2023 Other Unlisted US Procedure Normal [facility] 12 Lead EKGon 11-11-2023 12 Lead EKG Normal [facility] Abdomen/Pelvis W IV Cont ONL Yon 11-11-2023 Abdomen/Pelvis W IV Cont ONLY Normal [facility] Bedside Glucoseon 11-11-2023 FINGERSTICK GLU 100 mg/dL Normal 74-106 [facility] Comment on above: Result Comment: DELLA GEMENT OF PATIENT CARE PER NURSING PROTOCOL Performed By: #### L 501.080 ####[facility] [address] [place], [address] FINGERSTICK GLU 266 mg/dL High 74-106 [facility] Comment on above: Result Comment: DELLA GEMENT OF PATIENT CARE PER NURSING PROTOCOL Performed By: #### L 501.080 ####[facility] [address] [place], [address] CBC W/Diff, Automatedon 10-14 Absolute Lymph 1.30 X10 3/uL Normal 0.83-4.51 [facility] Comment on above: Performed By: #### L 300.4310, L100.0100, L500.4050, L503.6005, L300.3900 ####[facility] [address] [place], [address] Absolute Neut 4.7 X10 3/uL Normal 2.0-7.7 [facility] Comment on above: Performed By: #### L 300.4310, L100.0100, L500.4050, L503.6005, L300.3900 ####[facility] [address] [place], [address] Basophils/100 WBC (Bld) 0.6 % Normal 0-1 [facility] Comment on above: Performed By: #### L 300.4310, L100.0100, L500.4050, L503.6005, L300.3900 ####[facility] [address] [place], [address] Eosinophils/100 WBC (Bld) 0.8 % Normal 0-5 [facility] Comment on above: Performed By: #### L 300.4310, L100.0100, L500.4050, L503.6005, L300.3900 ####[facility] [address] [place], [address] Erythrocyte distribution width (RBC) [Ratio] 12.9 % Normal 11.6-14.6 [facility] Comment on above: Performed By: #### L 300.4310, L100.0100, L500.4050, L503.6005, L300.3900 ####[facility] [address] [place], [address] Hematocrit (Bld) [Volume fraction] 46.1 % Normal 37-47 [facility] Comment on above: Performed By: #### L 300.4310, L100.0100, L500.4050, L503.6005, L300.3900 ####[facility] [address] [place], [address] Hemoglobin (Bld) [Mass/Vol] 15.6 g/dL High 12.0-15.0 [facility] Comment on above: Performed By: #### L 300.4310, L100.0100, L500.4050, L503.6005, L300.3900 ####[facility] [address] [place], [address] IG% 1.600 High 0.0-0.9 [facility] Comment on above: Result Comment: IG% - Immature Granulocytes (promyelocytes, myelocytes andmetamyelocytes) > 1% indicates that a LEFT SHIFT is Present. Performed By: #### L 300.4310, L100.0100, L500.4050, L503.6005, L300.3900 ####[facility] [address] [place], [address] Lymphocytes/100 WBC (Bld) 18.4 % Low 19-41 [facility] Comment on above: Performed By: #### L 300.4310, L100.0100, L500.4050, L503.6005, L300.3900 ####[facility] [address] [place], [address] MCH (RBC) [Entitic mass] 29.8 pg Normal 27.0-32.0 [facility] Comment on above: Performed By: #### L 300.4310, L100.0100, L500.4050, L503.6005, L300.3900 ####[facility] [address] [place], [address] MCHC (RBC) [Mass/Vol] 33.8 g/dL Normal 32-36 [facility] Comment on above: Performed By: #### L 300.4310, L100.0100, L500.4050, L503.6005, L300.3900 ####[facility] [address] [place], [address] MCV (RBC) [Entitic vol] 88.1 fL Normal 81-99 [facility] Comment on above: Performed By: #### L 300.4310, L100.0100, L500.4050, L503.6005, L300.3900 ####[facility] [address] [place], [address] Monocytes/100 WBC (Bld) 12.0 % High 0-10 [facility] Comment on above: Performed By: #### L 300.4310, L100.0100, L500.4050, L503.6005, L300.3900 ####[facility] [address] [place], [address] Neutrophils/100 WBC (Bld) 66.6 % Normal 47-70 [facility] Comment on above: Performed By: #### L 300.4310, L100.0100, L500.4050, L503.6005, L300.3900 ####[facility] [address] [place], [address] Nucleated RBC (Bld) [#/Vol] 0 10*3/uL Normal 0-5 [facility] Comment on above: Performed By: #### L 300.4310, L100.0100, L500.4050, L503.6005, L300.3900 ####[facility] [address] [place], [address] Platelet mean volume (Bld) [Entitic vol] 10.3 fL Normal 6.2-12.0 [facility] Comment on above: Performed By: #### L 300.4310, L100.0100, L500.4050, L503.6005, L300.3900 ####[facility] [address] [place], [address] Platelets (Bld) [#/Vol] 219 10*3/uL Normal 150-450 [facility] Comment on above: Performed By: #### L 300.4310, L100.0100, L500.4050, L503.6005, L300.3900 ####[facility] [address] [place], [address] RBC (Bld) [#/Vol] 5.23 10*6/uL Normal 4.2-5.4 [facility] Comment on above: Performed By: #### L 300.4310, L100.0100, L500.4050, L503.6005, L300.3900 ####[facility] [address] [place], [address] RDW SD 41.9 fl Normal 35.1-43.9 [facility] Comment on above: Performed By: #### L 300.4310, L100.0100, L500.4050, L503.6005, L300.3900 ####[facility] [address] [place], [address] WBC (Bld) [#/Vol] 7.1 10*3/uL Normal 4.4-11.0 [facility] Comment on above: Performed By: #### L 300.4310, L100.0100, L500.4050, L503.6005, L300.3900 ####[facility] [address] [place], [address] Chest 1 View (Portable)on Chest 1 View (Portable) Normal [facility] Comprehensive Metabolic Prof ilon 11-11-2023 Albumin [Mass/Vol] 3.1 g/dL Low 3.2-5.0 [facility] Comment on above: Performed By: #### L 300.4310, L100.0100, L500.4050, L503.6005, L300.3900 ####[facility] [address] [place], [address] Albumin/Globulin [Mass ratio] 0.9 {ratio} Normal 0.9-2.4 [facility] Comment on above: Performed By: #### L 300.4310, L100.0100, L500.4050, L503.6005, L300.3900 ####[facility] [address] [place], [address] ALK P 130 U/L High 45-117 [facility] Comment on above: Performed By: #### L 300.4310, L100.0100, L500.4050, L503.6005, L300.3900 ####[facility] [address] [place], [address] ALT [Catalytic activity/Vol] 50 U/L Normal 13-56 [facility] Comment on above: Performed By: #### L 300.4310, L100.0100, L500.4050, L503.6005, L300.3900 ####[facility] [address] [place], [address] AST [Catalytic activity/Vol] 35 U/L Normal 15-37 [facility] Comment on above: Performed By: #### L 300.4310, L100.0100, L500.4050, L503.6005, L300.3900 ####[facility] [address] [place], [address] Bilirubin [Mass/Vol] 1.10 mg/dL High 0.20-1.00 [facility] Comment on above: Result Comment: For patients on eltrombopag therapy, use of Dimension [place] TBIL is not recommended. Performed By: #### L 300.4310, L100.0100, L500.4050, L503.6005, L300.3900 ####[facility] [address] [place], [address] BUN/CRE 5.4 RATIO Low 10-20 [facility] Comment on above: Performed By: #### L 300.4310, L100.0100, L500.4050, L503.6005, L300.3900 ####[facility] [address] [place], [address] CA,Total 9.0 mg/dL Normal 8.5-10.1 [facility] Comment on above: Performed By: #### L 300.4310, L100.0100, L500.4050, L503.6005, L300.3900 ####[facility] [address] [place], [address] Chloride [Moles/Vol] 99 mmol/L Normal 98-107 [facility] Comment on above: Performed By: #### L 300.4310, L100.0100, L500.4050, L503.6005, L300.3900 ####[facility] [address] [place], [address] CO2 [Moles/Vol] 28.0 mmol/L Normal 21.0-32.0 [facility] Comment on above: Performed By: #### L 300.4310, L100.0100, L500.4050, L503.6005, L300.3900 ####[facility] [address] [place], [address] Creatinine [Mass/Vol] 0.74 mg/dL Normal 0.55-1.02 [facility] Comment on above: Result Comment: The validity of the calculated GFR GFRAA in patients over70 years has not been determined. Clinical correlation isessential. Performed By: #### L 300.4310, L100.0100, L500.4050, L503.6005, L300.3900 ####[facility] [address] [place], [address] ECRCL 79.11 ml/min Normal [facility] Comment on above: Performed By: #### L 300.4310, L100.0100, L500.4050, L503.6005, L300.3900 ####[facility] [address] [place], [address] EST GFR - AA 106 mL/min Normal >60 [facility] Comment on above: Result Comment: Afri can [place] GFR Calc Performed By: #### L 300.4310, L100.0100, L500.4050, L503.6005, L300.3900 ####[facility] [address] [place], [address] GAP 6 Normal 5-15 [facility] Comment on above: Performed By: #### L 300.4310, L100.0100, L500.4050, L503.6005, L300.3900 ####[facility] [address] [place], [address] GFR/1.73 sq M.predicted among non-blacks MDRD (S/P/Bld) [Vol rate/Area] 87 mL/min/{1.73_m2} Normal >60 [facility] Comment on above: Result Comment: Non- GFR Calc Performed By: #### L 300.4310, L100.0100, L500.4050, L503.6005, L300.3900 ####[facility] [address] [place], [address] Globulin (S) [Mass/Vol] 3.5 g/dL Normal 2.2-4.2 [facility] Comment on above: Performed By: #### L 300.4310, L100.0100, L500.4050, L503.6005, L300.3900 ####[facility] [address] [place], [address] Glucose [Mass/Vol] 652 mg/dL Invalid Interpretation Code 74-106 [facility] Comment on above: Result Comment: Crit ical Result(s) Called at: 08:11:45 11/11/2023 by: BOZENA Irwin. Results read back by same.Glucose result greater than or equal to 200 mg/dLsuggests DIABETES MELLITUS per A.D.A. criteria. Performed By: #### L 300.4310, L100.0100, L500.4050, L503.6005, L300.3900 ####[facility] [address] [place], [address] Potassium [Moles/Vol] 3.2 mmol/L Low 3.5-5.1 [facility] Comment on above: Performed By: #### L 300.4310, L100.0100, L500.4050, L503.6005, L300.3900 ####[facility] [address] [place], [address] Sodium [Moles/Vol] 133 mmol/L Low 136-145 [facility] Comment on above: Performed By: #### L 300.4310, L100.0100, L500.4050, L503.6005, L300.3900 ####[facility] [address] [place], [address] T PROT 6.6 g/dL Normal 6.4-8.2 [facility] Comment on above: Performed By: #### L 300.4310, L100.0100, L500.4050, L503.6005, L300.3900 ####[facility] [address] [place], [address] Urea nitrogen [Mass/Vol] 4 mg/dL Low 7-18 [facility] Comment on above: Performed By: #### L 300.4310, L100.0100, L500.4050, L503.6005, L300.3900 ####[facility] [address] [place], [address] Emergency Department Summary on 11-11-2023 Emergency Department Summary Normal [facility] H AND P Exam - Hospitaliston 11-11-2023 H&P Exam - Hospitalist Normal [facility] L501.4020on 11-11-2023 TROPONIN-I HS 5 pg/mL Normal 3.0-54.0 [facility] Comment on above: Order Comment: 'TROP ' Serial specimen #1, #2 or #3: 1 Result Comment: Plea se Note: New Test Units and Gender Specific Reference Ranges. For more information see Policy Stat Procedure [place] High Sensitivity Troponin (TNIH) and attachments. Performed By: #### L 501.4020 ####[facility] [address] [place], [address] Lactic Acidon 11-11-2023 Lactate [Moles/Vol] 1.5 mmol/L Normal 0.4-1.9 [facility] Comment on above: Performed By: #### L 503.6005 ####[facility] [address] [place], [address] Lactate [Moles/Vol] 2.5 mmol/L Invalid Interpretation Code 0.4-1.9 [facility] Comment on above: Order Comment: Y Result Comment: Crit ical Result(s) Called at: 08:26:26 11/11/2023 by: BOZENA Irwin. Results read back by same. Performed By: #### L 300.4310, L100.0100, L500.4050, L503.6005, L300.3900 ####[facility] [address] [place], [address] Partial Thromboplast Timeon 11-11-2023 aPTT Coag (Bld) [Time] 30.3 s Normal 24.1-36.2 [facility] Comment on above: Performed By: #### L 300.4310, L100.0100, L500.4050, L503.6005, L300.3900 ####[facility] [address] [place], [address] Prothrombin Time w/INRon INR Coag (PPP) [Relative time] 1.0 {INR} Normal [facility] Comment on above: Performed By: #### L 300.4310, L100.0100, L500.4050, L503.6005, L300.3900 ####[facility] [address] [place], [address] PT Coag (PPP) [Time] 12.9 s Normal 11.7-14.9 [facility] Comment on above: Performed By: #### L 300.4310, L100.0100, L500.4050, L503.6005, L300.3900 ####[facility] [address] [place], [address] Urinalysis, Completeon 11-10 BACTERIA 1+ /hpf Normal None Seen [facility] Comment on above: Order Comment: BOZENA CTOR TO SPECIFY Performed By: #### L 400.0001 ####[facility] [address] [place], [address] EPI,SQUAMOUS 0-5 SEEN Normal 5-10 [facility] Comment on above: Order Comment: COLLE CTOR TO SPECIFY Performed By: #### L 400.0001 ####[facility] [address] [place], [address] WBC >100 SEEN Normal 0-5 [facility] Comment on above: Order Comment: BOZENA CTOR TO SPECIFY Performed By: #### L 400.0001 ####[facility] [address] [place], [address] Mucus Ql (Urine sed) 0 SEEN Normal [facility] Comment on above: Order Comment: BOZENA CTOR TO SPECIFY Performed By: #### L 400.0001 ####[facility] [address] [place] [id number] RBC 0 SEEN Normal 0-5 [facility] Comment on above: Order Comment: BOZENA CTOR TO SPECIFY Performed By: #### L 400.0001 ####[facility] [address] [place], [address] Urine Drug Screen (VISTA)on 11-11-2023 AMPHETAMINES Negative Normal <1000 ng/mL [facility] Comment on above: Performed By: #### L 505.5000 ####[facility] [address] [place], [address] BARBITIURATES Negative Normal < 200 ng/mL [facility] Comment on above: Performed By: #### L 505.5000 ####[facility] [address] [place], [address] BENZODIAZIPINE Negative Normal < 200 ng/mL [facility] Comment on above: Performed By: #### L 505.5000 ####[facility] [address] [place], [address] COCAINE Positive Abnormal < 300 ng/mL [facility] Comment on above: Performed By: #### L 505.5000 ####[facility] [address] [place], [address] ECSTACY Negative Normal < 500 ng/mL [facility] Comment on above: Performed By: #### L 505.5000 ####[facility] [address] [place] [address] METHADONE Negative Normal < 300 ng/mL [facility] Comment on above: Performed By: #### L 505.5000 ####[facility] [address] [place] [address] OPIATES Positive Abnormal < 300 ng/mL [facility] Comment on above: Performed By: #### L 505.5000 ####[facility] [address] [place] [address] PCP Negative Normal < 25 ng/mL [facility] Comment on above: Performed By: #### L 505.5000 ####[facility] [address] [place], [phone] THC Positive Abnormal < 50 ng/mL [facility] Comment on above: Performed By: #### L 505.5000 ####[facility] [address] [place] [address] VISTA UDS PH 5 Normal [facility] Comment on above: Performed By: #### L 505.5000 ####[facility] [address] [place] [address] Basic Metabolic Profile (BMP )on 11-04-2023 BUN/CRE 16.4 RATIO Normal 10-20 [facility] Comment on above: Performed By: #### L 100.0100, L500.2500 ####[facility] [address] [place], [address] CA,Total 9.0 mg/dL Normal 8.5-10.1 [facility] Comment on above: Performed By: #### L 100.0100, L500.2500 ####[facility] [address] [place], [address] Chloride [Moles/Vol] 101 mmol/L Normal 98-107 [facility] Comment on above: Performed By: #### L 100.0100, L500.2500 ####[facility] [address] [place], [address] CO2 [Moles/Vol] 28.0 mmol/L Normal 21.0-32.0 [facility] Comment on above: Performed By: #### L 100.0100, L500.2500 ####[facility] [address] [place], [address] Creatinine [Mass/Vol] 0.43 mg/dL Low 0.55-1.02 [facility] Comment on above: Result Comment: The validity of the calculated GFR GFRAA in patients over70 years has not been determined. Clinical correlation isessential. Performed By: #### L 100.0100, L500.2500 ####[facility] [address] [place], [address] ECRCL 154.52 ml/min Normal [facility] Comment on above: Performed By: #### L 100.0100, L500.2500 ####[facility] [address] [place], [address] EST GFR - AA 199 mL/min Normal >60 [facility] Comment on above: Result Comment: Afri can [place] GFR Calc Performed By: #### L 100.0100, L500.2500 ####[facility] [address] [place], [address] GAP 8 Normal 5-15 [facility] Comment on above: Performed By: #### L 100.0100, L500.2500 ####[facility] [address] [place], [address] GFR/1.73 sq M.predicted among non-blacks MDRD (S/P/Bld) [Vol rate/Area] 165 mL/min/{1.73_m2} Normal >60 [facility] Comment on above: Result Comment: Non- GFR Calc Performed By: #### L 100.0100, L500.2500 ####[facility] [address] [place], [address] Glucose [Mass/Vol] 313 mg/dL High 74-106 [facility] Comment on above: Result Comment: Gluc ose result greater than or equal to 200 mg/dLsuggests DIABETES MELLITUS per A.D.A. criteria. Performed By: #### L 100.0100, L500.2500 ####[facility] [address] [place], [address] Potassium [Moles/Vol] 3.2 mmol/L Low 3.5-5.1 [facility] Comment on above: Performed By: #### L 100.0100, L500.2500 ####[facility] [address] [place], [address] Sodium [Moles/Vol] 137 mmol/L Normal 136-145 [facility] Comment on above: Performed By: #### L 100.0100, L500.2500 ####[facility] [address] [place], [address] Urea nitrogen [Mass/Vol] 7 mg/dL Normal 7-18 [facility] Comment on above: Performed By: #### L 100.0100, L500.2500 ####[facility] [address] [place], [address] CBC W/Diff, Automatedon 07-2 Absolute Lymph 1.28 X10 3/uL Normal 0.83-4.51 [facility] Comment on above: Performed By: #### L 100.0100, L500.2500 ####[facility] [address] [place], [address] Absolute Neut 6.7 X10 3/uL Normal 2.0-7.7 [facility] Comment on above: Performed By: #### L 100.0100, L500.2500 ####[facility] [address] [place], [address] Basophils/100 WBC (Bld) 0.4 % Normal 0-1 [facility] Comment on above: Performed By: #### L 100.0100, L500.2500 ####[facility] [address] [place], [address] Eosinophils/100 WBC (Bld) 0.5 % Normal 0-5 [facility] Comment on above: Performed By: #### L 100.0100, L500.2500 ####[facility] [address] [place], [address] Erythrocyte distribution width (RBC) [Ratio] 13.1 % Normal 11.6-14.6 [facility] Comment on above: Performed By: #### L 100.0100, L500.2500 ####[facility] [address] [place], [address] Hematocrit (Bld) [Volume fraction] 47.5 % High 37-47 [facility] Comment on above: Performed By: #### L 100.0100, L500.2500 ####[facility] [address] [place], [address] Hemoglobin (Bld) [Mass/Vol] 15.9 g/dL High 12.0-15.0 [facility] Comment on above: Performed By: #### L 100.0100, L500.2500 ####[facility] [address] [place], [address] IG% 0.800 Normal 0.0-0.9 [facility] Comment on above: Result Comment: IG% - Immature Granulocytes (promyelocytes, myelocytes andmetamyelocytes) > 1% indicates that a LEFT SHIFT is Present. Performed By: #### L 100.0100, L500.2500 ####[facility] [address] [place], [address] Lymphocytes/100 WBC (Bld) 14.0 % Low 19-41 [facility] Comment on above: Performed By: #### L 100.0100, L500.2500 ####[facility] [address] [place], [address] MCH (RBC) [Entitic mass] 29.7 pg Normal 27.0-32.0 [facility] Comment on above: Performed By: #### L 100.0100, L500.2500 ####[facility] [address] [place], [address] MCHC (RBC) [Mass/Vol] 33.5 g/dL Normal 32-36 [facility] Comment on above: Performed By: #### L 100.0100, L500.2500 ####[facility] [address] [place], [address] MCV (RBC) [Entitic vol] 88.8 fL Normal 81-99 [facility] Comment on above: Performed By: #### L 100.0100, L500.2500 ####[facility] [address] [place], [address] Monocytes/100 WBC (Bld) 10.9 % High 0-10 [facility] Comment on above: Performed By: #### L 100.0100, L500.2500 ####[facility] [address] [place], [address] Neutrophils/100 WBC (Bld) 73.4 % High 47-70 [facility] Comment on above: Performed By: #### L 100.0100, L500.2500 ####[facility] [address] [place], [address] Nucleated RBC (Bld) [#/Vol] 0 10*3/uL Normal 0-5 [facility] Comment on above: Performed By: #### L 100.0100, L500.2500 ####[facility] [address] [place], [address] Platelet mean volume (Bld) [Entitic vol] 10.9 fL Normal 6.2-12.0 [facility] Comment on above: Performed By: #### L 100.0100, L500.2500 ####[facility] [address] [place], [address] Platelets (Bld) [#/Vol] 207 10*3/uL Normal 150-450 [facility] Comment on above: Performed By: #### L 100.0100, L500.2500 ####[facility] [address] [place], [address] RBC (Bld) [#/Vol] 5.35 10*6/uL Normal 4.2-5.4 [facility] Comment on above: Performed By: #### L 100.0100, L500.2500 ####[facility] [address] [place], [address] RDW SD 42.2 fl Normal 35.1-43.9 [facility] Comment on above: Performed By: #### L 100.0100, L500.2500 ####[facility] [address] [place], [address] WBC (Bld) [#/Vol] 9.1 10*3/uL Normal 4.4-11.0 [facility] Comment on above: Performed By: #### L 100.0100, L500.2500 ####[facility] [id number] [place], [address] Emergency Department Summary on 11-04-2023 Emergency Department Summary Normal [facility] Vital Signs Date Time Vital Sign Value Performing Clinician Facility 10-01-2024 22:57-0400 Body temperature 97.8 [degF] Dr. Fely Bose MD Work Phone: [facility] 10-01-2024 22:57-0400 Diastolic blood pressure 84 mm[Hg] Dr. Fely Bose MD Work Phone: [facility] 10-01-2024 22:57-0400 Heart rate 86 /min Dr. Fely Bose MD Work Phone: [facility] 10-01-2024 22:57-0400 Respiratory rate 16 /min Dr. Fely Bose MD Work Phone: [facility] 10-01-2024 22:57-0400 SaO2% (BldA) [Mass fraction] 96 % Dr. Fely Bose MD Work Phone: [facility] 10-01-2024 22:57-0400 Systolic blood pressure 119 mm[Hg] Dr. Fely Bose MD Work Phone: [facility] 10-01-2024 20:48-0400 Body height 165.[address] Fely Bose MD Work Phone: [facility] 10-01-2024 20:48-0400 Body mass index (BMI) [Ratio] 24.2 kg/m2 Dr. Fely Bose MD Work Phone: [facility] 10-01-2024 20:48-0400 Body weight 66.[address] Fely Bose MD Work Phone: [facility] 09-01-2024 18:55-0400 Diastolic blood pressure 63 mm[Hg] Dr. Fely Bose MD Work Phone: [facility] 09-01-2024 18:55-0400 Heart rate 90 /min Dr. Fely Bose MD Work Phone: [facility] 09-01-2024 18:55-0400 SaO2% (BldA) [Mass fraction] 94 % Dr. Fely Bose MD Work Phone: [facility] 09-01-2024 18:55-0400 Systolic blood pressure 121 mm[Hg] Dr. Fely Bose MD Work Phone: [facility] 09-01-2024 17:48-0400 Body temperature 97 [degF] Dr. Fely Bose MD Work Phone: [facility] 09-01-2024 17:48-0400 Respiratory rate 16 /min Dr. Fely Bose MD Work Phone: [facility] 09-01-2024 07:51-0400 Body height 165.[address] Fely Bose MD Work Phone: [facility] 09-01-2024 07:51-0400 Body mass index (BMI) [Ratio] 24.5 kg/m2 Dr. Fely Bose MD Work Phone: [facility] 09-01-2024 07:51-0400 Body weight 66.[address] Fely Bose MD Work Phone: [facility] 08-31-2024 21:19-0400 Body temperature 98 [degF] Dr. Fely Bose MD Work Phone: [facility] 08-31-2024 21:19-0400 Diastolic blood pressure 60 mm[Hg] Dr. Fely Bose MD Work Phone: [facility] 08-31-2024 21:19-0400 Heart rate 79 /min Dr. Fely Bose MD Work Phone: [facility] 08-31-2024 21:19-0400 Respiratory rate 18 /min Dr. Fely Bose MD Work Phone: [facility] 08-31-2024 21:19-0400 SaO2% (BldA) [Mass fraction] 96 % Dr. Fely Bose MD Work Phone: [facility] 08-31-2024 21:19-0400 Systolic blood pressure 128 mm[Hg] Dr. Fely Bose MD Work Phone: [facility] 08-31-2024 16:22-0400 Body height 165.[address] Fely Bose MD Work Phone: [facility] 08-31-2024 16:22-0400 Body mass index (BMI) [Ratio] 24.4 kg/m2 Dr. Fely Bose MD Work Phone: [facility] 08-31-2024 16:22-0400 Body weight 66.[address] Fely Bose MD Work Phone: [facility] 08-29-2024 16:05-0400 Body temperature 98.3 [degF] Dr. Fely Bose MD Work Phone: [facility] 08-29-2024 16:05-0400 Diastolic blood pressure 78 mm[Hg] Dr. Fely Bose MD Work Phone: [facility] 08-29-2024 16:05-0400 Heart rate 78 /min Dr. Fely Bose MD Work Phone: [facility] 08-29-2024 16:05-0400 Respiratory rate 18 /min Dr. Fely Bose MD Work Phone: [facility] 08-29-2024 16:05-0400 SaO2% (BldA) [Mass fraction] 98 % Dr. Fely Bose MD Work Phone: [facility] 08-29-2024 16:05-0400 Systolic blood pressure 120 mm[Hg] Dr. Fely Bose MD Work Phone: [facility] 08-29-2024 12:06-0400 Body height 165.[address] Fely Bose MD Work Phone: [facility] 08-29-2024 12:06-0400 Body mass index (BMI) [Ratio] 25.3 kg/m2 Dr. Fely Bose MD Work Phone: [facility] 08-29-2024 12:06-0400 Body weight 69.[address] Fely Bose MD Work Phone: [facility] 06-30-2024 11:24-0400 Body temperature 37.0 degrees Celsius [facility] Comment on above: Performed By: #### [id number] #### [facility] ([id number][facility] ([facility] [address] [place] [address] 06-30-2024 11:24-0400 SaO2% (BldA) [Mass fraction] 98 % [facility] Comment on above: Performed By: #### [id number] #### [facility] ([id number]) [facility] ([facility] [address] [place] [address] 06-29-2024 16:53-0400 Body temperature 37.0 degrees Celsius [facility] Comment on above: Performed By: #### [id number] #### [facility] ([id number]) [facility] ([facility]) [address] [place] [address] 06-29-2024 16:53-0400 SaO2% (BldA) [Mass fraction] 96 % [facility] Comment on above: Performed By: #### [id number] #### [facility] ([id number]) [facility] ([facility] [address] [place] [address] 06-18-2024 20:58-0500 Body temperature 98.5 [degF] Dr. Fely Bose MD Work Phone: [facility] 06-18-2024 20:58-0500 Diastolic blood pressure 85 mm[Hg] Dr. Fely Bose MD Work Phone: [facility] 06-18-2024 20:58-0500 Heart rate 85 /min Dr. Fely Bose MD Work Phone: [facility] 06-18-2024 20:58-0500 Respiratory rate 16 /min Dr. Fely Bose MD Work Phone: [facility] 06-18-2024 20:58-0500 SaO2% (BldA) [Mass fraction] 96 % Dr. Fely Bose MD Work Phone: [facility] 06-18-2024 20:58-0500 Systolic blood pressure 137 mm[Hg] Dr. Fely Bose MD Work Phone: [facility] 06-18-2024 13:36-0500 Body mass index (BMI) [Ratio] 22.3 kg/m2 Dr. Fely Bose MD Work Phone: [facility] 06-18-2024 13:36-0500 Body weight 60.[address] Fely Bose MD Work Phone: [facility] 06-15-2024 14:23-0500 Body temperature 97.6 [degF] Dr. Fely Bose MD Work Phone: [facility] 06-15-2024 14:23-0500 Diastolic blood pressure 96 mm[Hg] Dr. Fely Bose MD Work Phone: [facility] 06-15-2024 14:23-0500 Heart rate 128 /min Dr. Fely Bose MD Work Phone: [facility] 06-15-2024 14:23-0500 Respiratory rate 18 /min Dr. Fely Bose MD Work Phone: [facility] 06-15-2024 14:23-0500 SaO2% (BldA) [Mass fraction] 98 % Dr. Fely Bose MD Work Phone: [facility] 06-15-2024 14:23-0500 Systolic blood pressure 150 mm[Hg] Dr. Fely Bose MD Work Phone: [facility] 05-01-2024 10:55-0500 Body temperature 98.7 [degF] Dr. Fely Bose MD Work Phone: [facility] 05-01-2024 10:55-0500 Diastolic blood pressure 63 mm[Hg] Dr. Fely Bose MD Work Phone: [facility] 05-01-2024 10:55-0500 Heart rate 108 /min Dr. Fely Bose MD Work Phone: [facility] 05-01-2024 10:55-0500 Respiratory rate 16 /min Dr. Fely Bose MD Work Phone: [facility] 05-01-2024 10:55-0500 SaO2% (BldA) [Mass fraction] 94 % Dr. Fely Bose MD Work Phone: [facility] 05-01-2024 10:55-0500 Systolic blood pressure 126 mm[Hg] Dr. Fely Bose MD Work Phone: [facility] 04-30-2024 11:21-0500 Body weight 83.[address] Fely Bose MD Work Phone: [facility] 04-29-2024 22:47-0500 Body mass index (BMI) [Ratio] 30.7 kg/m2 Dr. Fely Bose MD Work Phone: [facility] 04-10-2024 19:24-0500 Diastolic blood pressure 70 mm[Hg] Michele De Santiago DO Work Phone: [facility] 04-10-2024 19:24-0500 Heart rate 84 /min Michele De Santiago DO Work Phone: [facility] 04-10-2024 19:24-0500 Respiratory rate 14 /min Michele De Santiago DO Work Phone: [facility] 04-10-2024 19:24-0500 SaO2% (BldA) [Mass fraction] 98 % Michele De Santiago DO Work Phone: [facility] 04-10-2024 19:24-0500 Systolic blood pressure 128 mm[Hg] Michele De Santiago DO Work Phone: [facility] 04-10-2024 13:34-0500 Body temperature 98.01 [degF] Michele De Santiago DO Work Phone: [facility] 03-24-2024 22:20-0500 Diastolic blood pressure 70 mm[Hg] Millie Evans MD Work Phone: [facility] 03-24-2024 22:20-0500 Heart rate 88 /min Millie Evans MD Work Phone: [facility] 03-24-2024 22:20-0500 Respiratory rate 16 /min Millie Evans MD Work Phone: [facility] 03-24-2024 22:20-0500 SaO2% (BldA) [Mass fraction] 99 % Millie Evans MD Work Phone: [facility] 03-24-2024 22:20-0500 Systolic blood pressure 138 mm[Hg] Millie Evans MD Work Phone: [facility] 03-24-2024 19:01-0500 Body mass index (BMI) [Ratio] 24.46 kg/m2 Millie Evans MD Work Phone: [facility] 03-24-2024 19:01-0500 Body weight 66.68 kg Millie Evans MD Work Phone: [facility] 03-24-2024 18:27-0500 Body temperature 97.7 [degF] Millie Evans MD Work Phone: [facility] 03-13-2024 13:51-0500 Body height 166.4 cm Eloise Newbill PA-C Work Phone: [facility] 03-13-2024 13:51-0500 Body mass index (BMI) [Ratio] 23.66 kg/m2 Eloise Newbill PA-C Work Phone: [facility] 03-13-2024 13:51-0500 Body temperature 98.01 [degF] Eloise Newbill PA-C Work Phone: [facility] 03-13-2024 13:51-0500 Body weight 65.5 kg Eloise Newbill PA-C Work Phone: [facility] 03-13-2024 13:51-0500 Diastolic blood pressure 88 mm[Hg] Eloise Newbill PA-C Work Phone: [facility] 03-13-2024 13:51-0500 Heart rate 112 /min Eloise Newbill PA-C Work Phone: [facility] 03-13-2024 13:51-0500 Respiratory rate 16 /min Eloise Newbill PA-C Work Phone: [facility] 03-13-2024 13:51-0500 SaO2% (BldA) [Mass fraction] 99 % Eloise Newbill PA-C Work Phone: [facility] 03-13-2024 13:51-0500 Systolic blood pressure 136 mm[Hg] Eloise Newbill PA-C Work Phone: [facility] 12-18-2023 13:59-0400 Blood Pressure Cuff Size GUILLERMINA ROGERS MD [facility] 12-18-2023 13:59-0400 Blood Pressure Location GUILLERMINA ROGERS MD [facility] 12-18-2023 13:59-0400 Blood Pressure Method GUILLERMINA ROGERS MD [facility] 12-18-2023 13:59-0400 Body temperature 97.88 [degF] GUILLERMINA ROGERS MD [address] [place] [address] 12-18-2023 13:59-0400 Diastolic Blood Pressure Non-Invasive 62 mm[Hg] GUILLERMINA ROGERS MD [address] [place] [address] 12-18-2023 13:59-0400 Heart rate 90 /min GUILLERMINA ROGERS MD [address] [place] [address] 12-18-2023 13:59-0400 Respiratory rate 17 /min GUILLERMINA ROGERS MD [address] [place] [address] 12-18-2023 13:59-0400 Systolic Blood Pressure Non-Invasive 96 mm[Hg] GUILLERMINA ROGERS MD [facility] 08-05-2023 13:56-0400 Body temperature 97.9 [degF] [facility] 08-05-2023 13:56-0400 Diastolic blood pressure 69 mm[Hg] [facility] 08-05-2023 13:56-0400 Heart rate 78 /min [facility] 08-05-2023 13:56-0400 Respiratory rate 18 /min [facility] 08-05-2023 13:56-0400 SaO2% (BldA) [Mass fraction] 95 % [facility] 08-05-2023 13:56-0400 Systolic blood pressure 118 mm[Hg] [facility] 08-05-2023 12:01-0400 Body height 165.1 cm [facility] 08-05-2023 12:01-0400 Body mass index (BMI) [Ratio] 28 kg/m2 [facility] 08-05-2023 12:01-0400 Body weight 76.61 kg [facility] Encounters Encounter Date Encounter Type Care Provider Facility Start: 10-01-2024 End: 10-01-2024 Emergency department patient visit Dr. Fely Bose MD Work Phone: -Emergency Department Work Phone: Start: 09-01-2024 End: 09-01-2024 Emergency department patient visit Dr. Fely Bose MD Work Phone: -Emergency Department Work Phone: Start: 08-31-2024 End: 08-31-2024 Emergency department patient visit Dr. Fely Bose MD Work Phone: -Emergency Department Work Phone: Start: 08-29-2024 End: 08-29-2024 Emergency department patient visit Dr. Fely Bose MD Work Phone: -Emergency Department Work Phone: Start: 07-28-2024 End: 07-31-2024 Patient encounter procedure Silvestre Murray [employer] Work Phone: [facility] Start: 07-28-2024 End: 07-31-2024 Progress Note Silvestre Murray [employer] Work Phone: [facility] Start: 07-17-2024 End: 07-24-2024 Patient encounter procedure Silvestre Murray [employer] Work Phone: [facility] Start: 07-17-2024 End: 07-24-2024 Progress Note Silvestre Murray [employer] Work Phone: [facility] Start: 07-14-2024 End: 07-15-2024 Patient encounter procedure Jesus Lindsey MD Work Phone: [facility] Start: 07-14-2024 End: 07-15-2024 Progress Note Jesus Lindsey MD Work Phone: [facility] [employer] Start: 06-29-2024 End: 08-17-2024 ambulatory [facility] Start: 06-29-2024 End: 06-29-2024 Subsequent hospital visit by physician Rehan Prieto Non[facility] Start: 06-29-2024 End: 07-13-2024 Evaluation and management of inpatient GALILEA Cervantes [facility] Start: 06-18-2024 End: 06-18-2024 Emergency department patient visit Dr. Albert Mccoy MD -Emergency Department Work Phone: Start: 06-15-2024 End: 06-15-2024 Emergency department patient visit ED PHYSICIAN PROVIDER -Emergency Department Work Phone: Start: 05-11-2024 ambulatory Fely Highland Facility :[facility] Start: 05-11-[address] Teri Franklin MD -[facility] Start: 05-04-2024 ambulatory Fely Highland Facility :[facility] Start: 05-04-[address] Teri Franklin MD -[facility] Start: 05-01-2024 Non-patient / Non-visit Dr. Eva Ma MD -[facility] Work Phone: Start: 04-29-2024 ambulatory Fely Lidya Facility :[facility] Start: 04-29-2024 End: 05-01-2024 Evaluation and management of inpatient Dr. Farhad Ma MD -Progressive Care Unit Work Phone: Start: 04-24-2024 ambulatory Fely Lidya Facility :[facility] Start: 04-23-2024 ambulatory Fely Lidya Facility :[facility] Start: 04-23-2024 End: 04-29-2024 Evaluation and management of inpatient Fely Highland Facility:[facility] Start: 04-10-2024 End: 04-10-2024 Emergency department patient visit Michele De Santiago DO Work Phone: [facility] Comment on above: Hyperglycemia (Prima ry Dx); Yeast infection Start: 04-10-2024 Emergency department patient visit Physician Ashly Feldman [facility] Start: 03-24-2024 End: 03-24-2024 Emergency department patient visit Millie Evans MD Work Phone: [facility] Emergency Department Comment on above: Hyperglycemia (Prima ry Dx); Acute cystitis without hematuria Start: 03-19-2024 End: 03-19-2024 ambulatory Trina Collier [facility] Start: 03-19-2024 End: 03-19-2024 Follow-up encounter Trina Collier [facility] Comment on above: SPP Hepatology - Fol low-up (HCV+ lab note) Start: 03-13-2024 End: 03-13-2024 [facility] Comment on above: Acute maxillary sinu sitis, recurrence not specified (Primary Dx); Diabetic ulcer of left midfoot associated with type 2 diabetes mellitus, unspecified ulcer stage (Multi); Encounter for wound care; Encounter for removal of sutures Start: 03-13-2024 End: 03-13-2024 ambulatory [facility] Start: 03-11-2024 ambulatory Fely Lidya Facility :[facility] Start: 02-24-2024 ambulatory Fely Highland Facility :[facility] Start: 02-24-2024 End: 02-24-2024 ambulatory Fely Highland Facility:[facility] Start: 02-21-2024 ambulatory Vicente Rodriguez ty:[facility] Start: 02-21-2024 End: 02-29-2024 Evaluation and management of inpatient Fely Lidya Facility:[facility] Start: 02-18-2024 End: 02-18-2024 Emergency department patient visit GREER VALLE Facility:[facility] Start: 02-08-2024 End: 02-09-2024 ambulatory Sisi Gasca Facility:[facility] Start: 01-29-2024 Emergency department patient visit Physician No [facility] Start: 01-29-2024 End: 01-29-2024 Emergency department patient visit Physician No [facility] Start: 01-23-2024 Emergency department patient visit MILLIE EVANS [facility] Start: 01-22-2024 End: 01-23-2024 Emergency department patient visit Physician Ashly Feldman [facility] Start: 01-12-2024 Emergency department patient visit Facility:[id number] Start: 01-03-2024 Emergency department patient visit Facility:[id number] Start: 01-03-2024 End: 01-04-2024 Admission to [facility] Lisa HAMM [facility] Intake Start: 01-03-2024 End: 01-04-2024 ambulatory Lisa HAMM [facility] Intake Comment on above: Medical Clearance (P t brought in by [facility] for medical clearance to go to [facility] Start: 12-25-2023 Emergency department patient visit Facility:[id number] Start: 12-19-2023 [facility]ced[facility] Start: 12-18-2023 End: 12-18-2023 Emergency department patient visit GUILLERMINA ROGERS MD [facility] Start: 11-21-2023 End: 11-21-2023 Emergency department patient visit [facility] Facility:[facility] Start: 11-17-2023 End: 11-17-2023 Emergency department patient visit [facility] Facility:[facility] Start: 11-13-[address] Lissette Bose MD Work Phone: [facility] Start: 11-12-2023 ambulatory Сергей Simeon Facility: [facility] Start: 11-12-2023 End: 11-13-2023 Evaluation and management of inpatient Сергей Simeon Facility:[facility] Start: 11-11-2023 ambulatory GREER VALLE Facility:[facility] Start: 11-03-2023 End: 11-04-2023 Emergency department patient visit [facility] Facility:[facility] Start: 08-05-2023 End: 08-05-2023 Emergency department patient visit [facility] Work Phone: Procedures Date Procedure Procedure Detail Performing Clinician Start: 09-01-2024 Methadone measuremen t, urine Dr. eFly Bose MD Work Phone: Start: 09-01-[address] Fely Bose MD Work Phone: Start: 09-01-2024 X-ray of chest, PA a nd lateral views Dr. Fely Bose MD Work Phone: Start: 08-31-2024 Urnls dip stick/tabl et reagent auto microscopy Dr. Fely Bose MD Work Phone: Start: 08-31-[address] Fely Bose MD Work Phone: Start: 08-31-[address] Lauren Bose MD Work Phone: Start: 08-29-2024 X-ray [...] Phone: Start: 06-18-[address] Fley Bose MD Work Phone: Start: 05-11-2024 Measurement [...] Work Phone: Start: 04-29-[address] Lauren Bose MD Work Phone: Start: 04-29-2024 Legionella [...] dev cleared fda spec home use Xiomy Alejandro DO Work Phone: Start: 04-10-2024 Radiologic exam ches t 2 views Xiomy Fajardo DO Work Phone: Start: 04-10-2024 Ecg routine ecg w/le ast 12 lds w/i&r Xiomy Alejandro DO Work Phone: Start: 04-10-2024 End: 04-10-2024 Comprehensive metabolic panel Xiomyhuan Fajardo DO Work Phone: Start: 04-10-2024 Gases blood ph only Becca Fajardo DO Work Phone: Start: 04-10-2024 Urnls dip stick/tabl et reagent auto microscopy Xiomy Fajardo DO Work Phone: Start: 03-24-2024 End: 03-24-2024 Comprehensive metabolic panel Millie Evans MD Work Phone: Start: 03-24-2024 Gases blood ph only Jasbir alex Evans MD Work Phone: Start: 03-24-2024 Urnls dip stick/tabl et reagent auto microscopy Millie Evans MD Work Phone: Start: 08-05-2023 Plain x-ray of humerus Start: 08-05-2023 X-ray of chest posteroanterior view Start: 11-08-2021 Lipid 1996 panel - S yuly or Plasma Silvestre Murray [employer] Work Phone: Start: 12-06-2011 End: 07-31-2013 H/O: hysterectomy S/P subtotal hysterectomy Lisa HAMM Plan of Treatment Date Care Activity Detail Author Start: 04-29-2034 DTaP/Tdap/Td Vaccine s (3 - Td or Tdap) DTaP/Tdap/Td Vaccines (3 - Td or Tdap) [facility] Start: 06-23-2028 DTaP/Tdap/Td vaccine (2 - Td or Tdap) DTaP/Tdap/Td vaccine (2 - Td or Tdap) [facility] Start: 06-23-2028 Urine microalbumin profile DTaP,Tdap,Td Vaccine (2 - Td or Tdap) [facility] Start: 01-11-2027 Diabetes Screening Diabetes Screenin g [facility] Start: 11-08-2026 Lipid panel Lipid Screening [facility] Start: 04-10-2025 GFR test (Diabetes, CKD 3-4, OR last GFR 15-59) GFR test (Diabetes, CKD 3-4, OR last GFR 15-59) [facility] Start: 03-24-2025 GFR test (Diabetes, CKD 3-4, OR last GFR 15-59) GFR test (Diabetes, CKD 3-4, OR last GFR 15-59) [facility] Start: 10-01-2024 [facility] Start: 09-29-2024 Hemoglobin A1c measurement Diabetes: Hemoglobin A1C [facility] Start: 09-01-2024 [facility] Start: 09-01-2024 [facility] Start: 08-31-2024 [facility] Start: 08-31-2024 [facility] Start: 08-31-2024 Bacteria identified in Urine by Culture Urine Culture [facility] Start: 08-29-2024 End: 08-29-2024 [facility] Start: 08-29-2024 Consultation [facility] Start: 08-29-2024 Bacteria identified in Urine by Culture Urine Culture [facility] Start: 08-29-2024 [facility] Start: 06-18-2024 [facility] Start: 06-18-2024 [facility] Start: 06-18-2024 Referral to service [facility] Start: 06-18-2024 End: 06-18-2024 Suicide precautions [facility] Start: 05-01-2024 Patient discharge [facility] Start: 04-30-2024 Referral to occupati onal therapist [facility] Start: 04-30-2024 Referral to service [facility] Start: 04-30-2024 Inhalation therapy procedure [facility] Start: 04-29-2024 Application of intermittent pneumatic compression device [facility] Start: 04-29-2024 Following clinical pathway protocol [facility] Start: 04-29-2024 Cardiac monitoring [facility] Start: 04-29-2024 Catheterization of vein [facility] Start: 04-29-2024 Notification of physician [facility] Start: 04-29-2024 [facility] Start: 04-29-2024 Admission procedure [facility] Start: 04-29-2024 Consultation [facility] Start: 04-29-2024 Patient referral to dietitian [facility] Start: 03-25-2024 Hemoglobin A1c measurement HbA1C [facility] Start: 01-23-2024 Annual Wellness Visi t (Medicare) Annual Wellness Visit (Medicare) [facility] Start: 12-25-2023 Hepatitis B screening Urine Albumin:Creatinine Ratio [facility] Start: 12-15-2023 COVID-19 Vaccine ( season) COVID-19 Vaccine ( season) [facility] Start: 12-15-2023 COVID-19 Vaccine () COVID-19 Vaccine () [facility] Start: 12-15-2023 Covid-19 Vaccine () Covid-19 Vaccine () [facility] Start: 12-15-2023 Influenza vaccination Influenza Vacc ine (#1) [facility] Start: 11-14-2023 Influenza vaccination Flu vaccine (# 1) [facility] Start: 08-05-2023 End: 08-05-2023 [facility] Start: 11-08-2022 Hepatitis B surface antibody level LDL Cholesterol [facility] Start: 2020 Shingles vaccine (1 of 2) Yu gles vaccine (1 of 2) [facility] Start: 2020 Shingrix Vaccine (1 of 2) Yu grix Vaccine (1 of 2) [facility] Start: 2020 Zoster Vaccines (1 of 2) Zoste r Vaccines (1 of 2) [facility] Start: 10-04-2015 Screening for malign ant neoplasm of colon [facility] Start: 07-31-2014 Diabetic foot examination Diabetic F oot Exam [facility] Start: 05-22-2013 Glaucoma screening Dilated Retinal E xam [facility] Start: 10-31-2011 Screening for malign ant neoplasm of breast Mammogram Screening [facility] Start: 2010 Screening for malign ant neoplasm of breast [facility] Start: 2000 Screening for malign ant neoplasm of cervix [facility] Start: 10-04-1991 Screening for malign ant neoplasm of cervix [facility] Start: 1989 Hepatitis A Vaccines (1 of 2 - Risk 2-dose series) Hepatitis A Vaccines (1 of 2 - Risk 2-dose series) [facility] Start: 1989 Hepatitis B vaccine (1 of 3 - 19+ 3-dose series) Hepatitis B vaccine (1 of 3 - 19+ 3-dose series) [facility] Start: 1989 Hepatitis B Vaccines (1 of 3 - 19+ 3-dose series) Hepatitis B Vaccines (1 of 3 - 19+ 3-dose series) [facility] Start: 1989 Pneumococcal vaccination Pneum ococcal Vaccine (1 of 2 - PCV) [facility] Start: 1988 Annual PCP Team Clinical Laboratory Director michael Disease Visit Annual PCP Team Chronic Disease Visit [facility] Start: 1988 Anxiety Screening Anxiety Screening [facility] Start: 1988 Depression Screening Depression Scre ening [facility] Start: 1988 Glaucoma screening Diabetic retinal exam [facility] Start: 1988 Hepatitis C screening [facility] Start: 1988 Urine screening for protein Diabetic Alb to Cr ratio (uACR) test [facility] Start: 1985 HIV screening HIV screen [facility] Start: 1982 Depression Screen Depression Screen [facility] Start: 1980 Diabetic foot examination Diabetic f oot exam [facility] Start: 1980 Glaucoma screening Diabetes: R etinopathy Screening [facility] Start: 1980 Hemoglobin A1c measurement A1C test (Diabetic or Prediabetic) [facility] Start: 1980 Lipid panel Lipids [facility] Start: 1976 Pneumococcal 0-64 ye ars Vaccine (1 of 2 - PCV) Pneumococcal 0-64 years Vaccine (1 of 2 - PCV) [facility] Start: 10-04-1971 MMR Vaccines (1 of 1 - Standard series) MMR Vaccines (1 of 1 - Standard series) [facility] Start: 1970 Annual wellness visit Welcome to Medicare Visit [facility] Start: 1970 HIV screening HIV Screening [facility] Start: 1970 Lipid panel Lipid Panel [facility] Start: 1970 Screening for malign ant neoplasm of colon [facility] Start: 1970 Urine screening for protein Diabetes: Urine Protein Screening [facility] End: 03-24-2024 Beta-Hydroxybutyrate [facility] Comment on above: One Time for 1 Occur rences starting 03/24/2024 until 03/24/2024 End: 04-10-2024 Culture, Urine [facility] Comment on above: One Time for 1 Occur rences starting 04/10/2024 until 04/10/2024 EKG 12 Lead EKG 12 Lead ECG STAT 04/10/2024 2:36 PM EST [facility] Patient Education [facility] Work Phone: Patient referral [facility] Work Phone: Urine culture [facility] Urine culture [facility] Immunizations Immunization Date Immunization Notes Care Provider Fa cility 04-29-2024 tetanus toxoid, redu farzad diphtheria toxoid, and acellular pertussis vaccine, adsorbed Dr. Fely Bose MD Work Phone: [facility] 02-08-2024 influenza, seasonal, injectable, preservative free Dr. Fely Bose MD Work Phone: [facility] 06-23-2018 influenza, injectabl e, quadrivalent, contains preservative Lisa [facility] 06-23-2018 tetanus toxoid, redu farzad diphtheria toxoid, and acellular pertussis vaccine, adsorbed [facility] 06-23-2018 influenza virus vaccine, unspecified formulation [facility] 06-19-2010 tuberculin skin test ; purified protein derivative solution, intradermal [facility] Payers Date Payer Category Payer Medicare [id number] 2024 Medicare (Managed Care) 1.2. [id number] 2024 Medicare [id number] 2023 Medicaid [id number] 2023 Self-pay 2023 Unknown ANTHEM BLUE CROS S AND BLUE SHIELD ANTHEM MEDICARE ADVANTAGE HMO [id number] 2023-Present [phone] [address] [place] [address] HMO [id number] 2023 Unknown [id number] 2019 Medicaid [id number] 1970 Unknown [id number] 2.16840.1.785655.3.579.2. 627 1970 Unknown [id number] 2.16840.1.842629.3.579.2. 627 1970 Unknown [id number] 2.16840.1.312485.3.579.2. 1243 1970 Unknown [id number] 2.16840.1.778179.3.579.2. 204 1970 Unknown [id number] 2.16840.1.231569.3.579.2. 204 1970 Unknown [id number] 2.16840.1.349056.3.579.2. 204 1970 Unknown [id number] 2.16840.1.812989.3.579.2. 204 1970 Unknown [id number] 2.16840.1.626385.3.579.2. 204 1970 Unknown [id number] 2.16.840.1.119072.3.579.2. 204 1970 Unknown [id number] 2.16840.1.833941.3.579.2. 204 1970 Unknown [id number] 2.16840.1.879093.3.579.2. 1242 1970 Unknown [id number] 2.16840.1.864186.3.579.2. 1242 Unknown [employer] [id number] Unknown [id number] 2.16.840.1.259483.3.579.2. 462 Unknown [id number] 2.16.840.1.474503.3.579.2. 462 Unknown [id number] 2.16.840.1.130484.3.579.2. 462 Unknown [id number] 2.16.840.1.187240.3.579.2. 462 Unknown [id number] 2.16840.1.707684.3.579.2. 462 Unknown [id number] 2.840.1.082217.3.579.2. 462 Unknown [id number] 2.840.1.568746.3.579.2. 462 Unknown [id number] 2.840.1.445139.3.579.2. 462 Unknown [id number] 2.840.1.743192.3.579.2. 462 Unknown [id number] 2.840.1.260713.3.579.2. 462 Unknown [id number] 2.840.1.778275.3.579.2. 462 Unknown [id number] 2..840.1.440240.3.579.2. 462 Unknown [id number] 2.16840.1.497415.3.579.2. 462 Unknown [id number] 2.16840.1.757924.3.579.2. 462 Unknown [id number] 2.16840.1.338738.3.579.2. 462 Unknown [id number] 2.16840.1.850133.3.579.2. 462 Unknown [id number] 2.16.840.1.076853.3.579.2. 462 Unknown [id number] 2.16.840.1.328648.3.579.2. 462 Unknown [id number] 2.16.840.1.303341.3.579.2. 462 Unknown [id number] 2.16.840.1.387033.3.579.2. 462 Unknown [id number] 2.16.840.1.104191.3.579.2. 462 Unknown [id number] 2.16.840.1.819027.3.579.2. 462 Unknown [id number] 2.16.840.1.292936.3.579.2. 462 Unknown [id number] 2.16840.1.259852.3.579.2. 462 Unknown [id number] 2.16840.1.667011.3.579.2. 462 Unknown [id number] 2.16840.1.880745.3.579.2. 462 Unknown [id number] 2.16840.1.854453.3.579.2. 462 Unknown [id number] 2.16840.1.623508.3.579.2. 462 Unknown [id number] 2.16840.1.647398.3.579.2. 462 Unknown [id number] 2.16840.1.906030.3.579.2. 462 Unknown [id number] 2.16840.1.483477.3.579.2. 462 Unknown [id number] 2.16840.1.798712.3.579.2. 462 Unknown [id number] 2.16.840.1.349076.3.579.2. 462 Unknown [id number] 2.16840.1.848332.3.579.2. 462 Unknown [id number] 2.16.840.1.624011.3.579.2. 462 Unknown [id number] 2.16840.1.003637.3.579.2. 462 Unknown [id number] 2.16.840.1.940324.3.579.2. 462 Unknown [id number] 2.16.840.1.338945.3.579.2. 462 Unknown [id number] 2.16.840.1.441989.3.579.2. 462 Unknown [id number] 2.16.840.1.516535.3.579.2. 462 Unknown [id number] 2.16.840.1.460494.3.579.2. 462 Unknown [id number] 2.16.840.1.983053.3.579.2. 462 Unknown [id number] 2.16.840.1.745548.3.579.2. 462 Unknown [id number] 2.16.840.1.340290.3.579.2. 462 Unknown [id number] 2.16.840.1.298368.3.579.2. 462 Unknown [id number] 2.16.840.1.109791.3.579.2. 462 Unknown [id number] 2.16.840.1.138481.3.579.2. 462 Unknown [id number] 2.16.840.1.132487.3.579.2. 462 Unknown [id number] 2.16.840.1.418830.3.579.2. 462 Unknown [id number] 2.16840.1.417965.3.579.2. 462 Unknown [id number] 2.16840.1.916589.3.579.2. 462 Unknown [id number] 2.16840.1.058284.3.579.2. 462 Social History Date Type Detail Facility Start: 08-05-2023 Tobacco smoking status COIS Unknown if ever smoked [facility] Start: 08-05-2023 None [facility] Start: 08-05-2023 Cocaine [facility] Start: 08-05-2023 Alone [facility] Start: 08-05-2023 Non-smoker [facility] Start: 1970 Sex Assigned At Female [facility] Start: 12-25-2023 End: 09-01-2024 Tobacco smoking status Smokes tobacco daily (finding) [facility] Sex Assigned At Sex [facility] Start: 09-01-2003 End: 08-31-2013 History of tobacco use Cigarette Smoker [facility] Start: 12-25-2023 End: 06-30-2024 Cigarettes smoked current (pack per day) - Reported 0.5 [facility] Start: 12-25-2023 End: 03-13-2024 Tobacco use and exposure Smokeless tobacco non-user [facility] Start: 01-03-2024 Alcoholic beverage intake Current non-drinker of alcohol (finding) [facility] Start: 12-27-2023 End: 06-30-2024 [facility] [employer] [facility] Has the [employer], or HQ plus threatened to shut off services in your home in past 12Mo No [facility] (I/We) worried javad (my/our) food would run out before (I/we) got money to buy more. Never true [facility] In the past 12 month s, has lack of transportation kept you from medical appointments or from getting medications? No [facility] Start: 12-25-2023 Tobacco Comment down to 1 cigs per day [facility] Start: 1970 Sex assigned at Not on file [facility] Start: 03-03-2024 End: 03-13-2024 Exposure to SARS-CoV-2 (event) Not sure [facility] Start: 01-22-2024 Tobacco smoking status NHIS Never smoked tobacco [employer] Start: 03-24-2024 End: 04-10-2024 Alcoholic beverage intake Ex-drinker (finding) [place] How often to you hav e a drink containing alcohol? Never [place] How hard is it for y ou to pay for the very basics like food, housing, medical care, and heating Somewhat hard [facility] At any time in the p ast 12 months, were you homeless or living in longterm [including now]? Yes [facility] Work Phone: Start: 10-01-2024 Tobacco smoking status NHIS Ex-smoker (finding) [facility] Medical Equipment Procedure Code Equipment Code Equipment Origin al Text Equipment Identifier Dates [id number] Start: 12-27-2023 use with insulin pens four times daily for injections. [id number] Start: 12-27-2023 use to test four times a day. [id number] Start: 12-27-2023 Pen Needle, Diab etic 31 [...] Humiliation, Afraid, Rape, and Kick questionnaire [HARK] [facility] Work Phone: 06-29-2024 Total score [AUDIT-C] -1 025 12:37 PM Ronit Baig, GOLD [facility] Work Phone: 06-29-2024 Patient Health Quest ionnaire 2 item (PHQ-2) [Reported] [facility] Work Phone: 06-29-2024 [place] - suicide s everity rating scale screener - recent [C-SSRS] [facility] Work Phone: 05-01-2024 Functional status Activity Abili ty With Assist of 1 [facility] Work Phone: 12-27-[address] score Ser Pl Calc.FibroSure 0.48 [facility] Comment on above: Order Comment: Speci men Type: BLOOD SPECIMEN Ordering Facility: [facility] Address: [address] [place] [address] Performed By: #### [place], [address]-6, 3040-3, 63081-0 #### [facility] CLIA [id number] [address] [facility] Safety Step [place] [id number] [facility] 12-27-2023 Necroinflammatory ac t score SerPl 0.86 [facility] Comment on above: Order Comment: Speci men Type: BLOOD SPECIMEN Ordering Facility: [facility] Address: [address] [place] [address] Performed By: #### [place], [address]-8, 3040-3, 48956-4 #### [facility] CLIA [id number] [address] [place] [id number] [facility] 11-11-2013 Are you deaf, or do you have serious difficulty hearing No 11/11/2013 11:34 AM Abbie Marmolejo RN No [facility] 11-11-2013 Are you blind, or do you have serious difficulty seeing, even when wearing glasses No 11/11/2013 11:34 AM Abbie Marmolejo RN No [facility] 11-11-2013 Do you have serious difficulty walking or climbing stairs No 11/11/2013 11:34 AM Abbie Marmolejo RN No [facility] 11-11-2013 Do you have difficul ty dressing or bathing No 11/11/2013 11:34 AM Abbie Marmolejo RN No [facility] 11-11-2013 Because of a physica l, mental, or emotional condition, do you have difficulty doing errands alone such as visiting a physician's office or shopping No 11/11/2013 11:34 AM Abbie Marmolejo RN No [facility] Work Phone: Mental Status Date Assessment Result Facility 10-01-2024 Cognitive function Level Of Cons ciousness Awake;Alert;Appropriate;Fol lows Commands [facility] Work Phone: 08-31-2024 Cognitive function Level Of Cons ciousness Awake;Alert;Appropriate;Fol lows Commands [facility] Work Phone: 08-29-2024 Cognitive function Level Of Cons ciousness Awake;Alert;Appropriate;Fol lows Commands [facility] Work Phone: 05-01-2024 Cognitive function Voice/Name [facility] Work Phone: 11-11-2013 Because of a physica l, mental, or emotional condition, do you have serious difficulty concentrating, remembering, or making decisions No 11/11/2013 11:34 AM EDT Abbie Malagon RN No [facility] Clinical Notes 11-14-2023 to 10-01-2024 Note Date & Type Note Facility 10-01-2024 Discharge summary [facility] 10-01-2024 Discharge summary Note Date/Time October 01, 2024 10:52pm [facility] Medical Records Department [address] [place] [address] Emergency Department Summary 10/01/24 MR#: [id number] Acct: [id number] Name: ANA CRISTINA THOMAS Rep #:[id number] : 1970 53 From: Chavo Toussaint DO PCP: Care Physician,No Primary Status :REG ER Location: ED HPI History of Present Illness Chief Complaint: Headache Informant: patient Narrative Narrative: Patient is a 53-year-old female with past medical history of hypertension type 2diabetes that is insulin-dependent as well as bipolar disorder. She states she has had a lump to the back of her neck for approximately 2 weeks. She states the area she feels is becoming more swollen and painful. She states that the area is tender to touch and is causing pain to radiate up into her head and cause a headache. She denies any fevers or chills or injury. She states because of her diabetes she does have a history of abscess. She is concerned for that and with this presents for evaluation. [facility] Medical History Diabetic ulcer of foot [...] x #100 ea 02/08/24 Unkno wn Rx 1/4 aripiprazole 5 mg tablet 5 mg PO [...] 50 mg PO BID 5 Unknown History amoxicillin 875 mg-potassium 1 tab PO BID 7 days #14 t abs 10/01/24 Unknown Rx clavulanate 125 mg tablet oxycodone-acetaminophen 5 mg-325 1 tab PO Q6H PRN pain 3 days #12 10/01/24 Unknown Rx mg tablet (Percocet) tabs Allergy/AdvReac Type Severity Reaction Status Date / Time aspirin AdvReac Other Verified 10/01/24 20:48 hydromorphone (From Dilaudid) AdvReac Other Verified 10/01/24 20:48 pseudoephedrine HCl (From AdvReac Other Verified 10/01/24 20:48 Sudafed) Family History no significant family his Surgical History History of cholecystectomy Hx of brain surgery Hx of appendectomy Hx of section Hx of total adrenalectomy Social History household members: none housing: homeless Smoking Status: Former smoker quit status: considering quitting alcohol intake: never substance use type: former substance user ROS ROS ED Constitutional Constitutional ED: Denies chills or fever(s) Eyes Eyes: Reports other Details: Negative photophobia ; Denies change in vision ENT ENT ED: Denies sore throat Cardiovascular Cardiovascular: Denies chest pain Respiratory/Chest Respiratory/Chest: Denies cough or dyspnea Gastrointestinal Gastrointestinal: Denies abdominal pain, diarrhea, nausea or vomiting Musculoskeletal Musculoskeletal: Reports neck pain Integumentary Reports other Details: Positive lesion to the midline of the posterior neck Neurologic Neurologic: Reports headache(s); Denies paresthesias or weakness Hematologic/Lymphatic Hematologic/Lymphatic: Denies easy bleeding or easy bruising EXAM Physical Exam Const Vital Signs: 10/01/24 20:48 Temperature 98 F Temperature Source Temporal Pulse Rate 110 H Respiratory Rate 16 Blood Pressure 128/105 H Blood Pressure Mean 112 Pulse Ox 98 Oxygen Delivery Method Room Air Positive well nourished and well developed General Appearance ED: well developed HEENT HEENT Narrative: Normocephalic atraumatic Eyes PERRL and EOMs intact bilaterally Neck supple Neck Narrative: In the center of the posterior neck near the attachment to the occipital portionof the scalp patient has a 1 x 2 cm area of induration that is well-demarcated without overlying erythema or warmth. No discharge or streaking. No surrounding cellulitis. The area is painful to touch however No nuchal rigidity or meningeal signs Resp normal respiratory effort and clear to auscultation bilaterally Cardio regular rate and regular rhythm Extremity normal to inspection Neuro oriented x3, CN's II-XII intact bilaterally and no sensory deficits noted Neuro Narrative: GCS of 15 Cranial nerves II through XII are grossly intact without focal neurologic deficit No pronator drift no dysmetria no truncal ataxia NIH stroke scale score of 0 Sensorium / Orientation: alert Motor Exam: strength 5/5 throughout Psych mental status grossly normal Skin Skin Narrative: Lesion to the posterior neck as documented above MDM MDM MDM Narrative Medical decision making narrative: Patient presenting to the ER afebrile and had no meningeal signs or ports or signs of trauma. Therefore at low concern for meningitis or subarachnoid or subdural hemorrhage as a cause of her symptoms. By exam she has a lesion to theposterior neck which has been present for roughly 2 weeks. There is no overlying erythema or warmth I feel this is more of a cystic structure than an abscess. I did elect to perform a needle aspiration of the area as documented below. This produced sebaceous material consistent with a sebaceous cyst. After aspiration was performed and the area is no longer swollen. At this time patient does not have signs of acute infection or meningitis I have low concern for underlying neurologic event or subarachnoid or subdural hemorrhage and therefore she is safe for discharge and can follow-up as an outpatient Patient had the posterior neck cleaned with chlorhexidine. It was anesthetized with 6 mL of 2% lidocaine with epinephrine and local fashion. An 18-gauge needle was used to aspirate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 bolus 1,000 mL (COMPLETED) 1,000 mL, IntraVENous, at 1,935.5 mL/hr, Administer over 31 Minutes, ONCE, On e 03/24/24 at 1900, For 1 dose 2002 (New Bag - Prov ider: Criselda Olvera RN)2033 (Stopped - Provider: Criselda Olvera RN) Scheduled Medication Order 04/08/2024 04/09/2024 04/10/2024 fluconazole (DIFLUCAN) tablet 200 mg (COMPLETED) 200 mg, Oral, ONCE, 1 dose, On Sat04/10/24 at 1800, Antimicrobial Indications: Skin and Soft Tissue Infection 1810 (Given - Provid er: Marilee Hopkins RN) sodium chloride 0.9 % bolus 1,000 mL (COMPLETED) 1,000 mL, IntraVENous, at 1,000 mL/hr, Administer over 1 Hours, ONCE, On Sat04/10/24 at 1430, For 1 dose, May administer over 30 minutes if well tolerated. 1434 (New Bag - Prov ider: Sylvester King RN)1709 (Stopped - Provider: Jasiel Tapia LPN) FOR [...] BE BASED ON THE PRIMARY CLINICAL RECORDS. [employer]. provides no warranty or guarantee of the accuracy or completeness of information in this document.
[2024-10-06 01:31] VITALS: BP 162/74; PULSE 66; RESP 16; O2SAT 94
[2024-10-06] MEDS: 0.9% Normal Saline (1000mL) 1,000 ML 999 ML IV (01:37)
[2024-10-06] MEDS: Ketorolac 15 MG/ML Vial IV (01:37)
[2024-10-06] MEDS: Ondansetron 4 MG/2 ML Vial IV ×2 (01:38→05:26)
[2024-10-06 01:44] LABS: Blood Gas Specimen Type VEN; O2 Delivery Device Not entered; SITE Not entered; VBG BASE EXCESS 3 mmol/L (-1.0-3.5); VBG Bicarbonate 27 mmol/L (22-26); VBG PO2 45 mmHg (25-40); VBG SO2 82 % (50-70); VBG TCO2 28 mmol/L (23-33); VBG pCO2 41.9 mmHg (41-51); VBG pH 7.42 (7.32-7.42)
--- NOTE | 2024-10-06 01:47 | RAD_ITS ---
PROCEDURE: CHEST PA AND LATERAL 10/06/2024 REASON FOR EXAM: COUGH TECHNIQUE: CHEST PA AND LATERAL COMPARISON: 09/01/2024. FINDINGS: The lungs are expanded. There is no demonstrated parenchymal abnormality. There is no demonstrated pleural abnormality. Normal heart and pericardium. Normal mediastinum and rosibel. Normal visualized pulmonary arteries. Normal visualized aortic arch and descending thoracic aorta. Normal visualized thoracic spine. Normal visualized ribs, clavicles, and shoulders. There is no demonstrated abnormality of the visualized soft tissue structures of the upper abdomen. RAD/Chest PA and Lateral IMPRESSION: No evidence for acute abnormality. Reading [facility]
[2024-10-06 01:49] LABS: Mucous, Urine 0 SEEN /hpf (<or=2+); Red Blood Cells-Urine 0 SEEN /hpf (0-5)
[2024-10-06 01:52] LABS: Absolute Neutrophil Count 2.7 X10^3/uL (2.0-7.7); Basophil# 0.04 X10^3/uL; Basophil% 0.8 % (0-1); Color, Urine Straw (Yellow); Eosinophils% 2.1 % (0-5); Glucose, Dipstick 1000 mg/dl (Normal); Hematocrit 40.2 % (37-47); Hemoglobin 13.9 g/dL (12.0-15.0); Ketone-Dipstick Negative (Negative); Leukocyte Esterase-Dipstick 25 /ul (Negative); Lymphocyte % 31.3 % (19-41); Mean Corp Hgb Conc 34.6 g/dL (32-36); Mean Corpuscular Hgb 28.4 pg (27.0-32.0); Mean Platelet Vol. 10.6 fl (6.2-12.0); Monocyte# 0.43 X10^3/uL; NRBC Flagged by Analyzer 0 % (0-5); Neutrophil # 2.69 X10^3/uL (2.7-7.7); Neutrophil % 56.2 % (47-70); Nitrite-Dipstick Negative (Negative); Occult Blood-Urine 10 /ul (Negative); Platelet Count 129 K/mm3 (150-450); Protein-Dipstick 15 mg/dl (Negative); RBC Distribution Width CV 12.6 % (11.6-14.6); RBC Distribution Width SD 37.7 fl (35.1-43.9); Specific Gravity, Urine 1.015 (1.002-1.030); Urine Bilirubin Dipstick Negative (Negative); Urine Clarity Clear (Clear); Urine Urobilinogen Normal (Normal); White Blood Count 4.8 K/mm3 (4.4-11.0)
[2024-10-06 02:01] LABS: Bacteria 1+ /hpf (None Seen); Squamous Epithelial Cells - UA 5-10 SEEN /hpf (5-10); White Blood Cells 10-25 SEEN /hpf (0-5)
[2024-10-06 02:02] LABS: Bedside Glucose 442 mg/dL (74-106)
[2024-10-06] MEDS: Insulin Lispro 100 UNIT/ML VIAL (ADMELOG) 10 UNIT IV ×2 (02:21→04:13)
[2024-10-06 03:00] VITALS: BP 151/69; PULSE 73; RESP 16; O2SAT 95
[2024-10-06 03:44] LABS: Anion Gap 13 (5-15); BUN 18 mg/dL (4-19); BUN/Creat Ratio 27.3 RATIO (10-20); Calcium,Total 9.1 mg/dL (7.6-11.0); Carbon Dioxide 22.5 mmol/L (21.0-32.0); Chloride 98 mmol/L (98-108); Creatinine, Serum 0.64 mg/dL (0.70-1.20); EST Glomerular Filtration Rate 105 (>60); Estimated Creatinine Clearance 90.42 ml/min (50-250); Potassium 3.8 mmol/L (3.3-5.1); Sodium Level 133 mmol/L (133-145)
[2024-10-06] MEDS: Gabapentin 300 MG Capsule PO (03:56)
[2024-10-06 04:00] LABS: Bedside Glucose 315 mg/dL (74-106)
[2024-10-06 04:35] LABS: BETA-HYDROXYBUTYRATE 0.1 mmol/L (0.0-0.3)
[2024-10-06 04:36] LABS: Glucose 497 mg/dL (70-99)
[2024-10-06 05:00] VITALS: BP 156/92; PULSE 70; RESP 12; O2SAT 96
[2024-10-06 05:09] LABS: Bedside Glucose 265 mg/dL (74-106)
[2024-10-06 05:26] VITALS: BP 155/74; PULSE 69; RESP 16; TEMP 36.6; O2SAT 97
[2024-10-06 05:48] LABS: Bedside Glucose 224 mg/dL (74-106)
== END 2024-10-06 05:32 | disposition home or self-care (01) ==
PROVIDERS: Emergency Provider Emergency Medicine; Visit Provider Emergency Medicine
DX: E11.65 Type 2 diabetes mellitus with hyperglycemia (principal); J44.9 Chronic obstructive pulmonary disease, unspecified; Z79.4 Long term (current) use of insulin; E11.42 Type 2 diabetes mellitus with diabetic polyneuropathy; N39.0 Urinary tract infection, site not specified; F17.210 Nicotine dependence, cigarettes, uncomplicated; Z91.148 Patient's other noncompliance with medication regimen for other reason; I10 Essential (primary) hypertension; M79.605 Pain in left leg; Z59.00 Homelessness unspecified; M79.604 Pain in right leg; G89.29 Other chronic pain; M79.602 Pain in left arm; K21.9 Gastro-esophageal reflux disease without esophagitis; M79.601 Pain in right arm
CPT/HCPCS: 71046; 80048; 81001; 82010; 82803; 82962; 85025; 87086; 87088; 93005; 96361; 96374; 96375; 99283; A4216; J2405

== ENCOUNTER 2024-10-13 06:42 | Emergency (ER) | payer MEDICARE, MEDICAID, SELFPAY ==
[2024-10-13 06:44] VITALS: BP 154/76; PULSE 87; RESP 16; TEMP 37.1; O2SAT 95; BMI 25.0
--- NOTE | 2024-10-13 07:22 | EDS_ITS ---
HPI History of Present Illness Chief Complaint: General Illness Informant: patient Onset/Context/Timing Onset: Month(s) Context: Gradual Onset Timing: Continuous Current Severity: Moderate Maximum Severity: Moderate Narrative Narrative: 54-year-old female history diabetes, substance abuse, hypertension, fibromyalgia. States my whole body hurts. Bilateral hand pain. Diffuse pain throughout her body. Patient dates has been ongoing for a month. She was seen emergency department a week ago had a negative workup. Was treated with Toradol which she states did not give her any relief. She said due to the the discomfort she had decreased sleep. She has been using a lot of ibuprofen and Tylenol without relief. Currently is going through a change of insurance and has been out of some of her medications. Prior similar symptoms: Yes Recent Illness/Hospitalization: No PFSH [facility] Medical History Diabetic ulcer of foot associated with diabetes mellitus due to underlying condition, with bone involvement without evidence of necrosis Substance abuse Smoker MRSA (methicillin resistant staph aureus) culture positive Hearing loss, left Cancer Anxiety Depression Bipolar disorder GERD (gastroesophageal reflux disease) Cirrhosis Hepatitis Smoker On home oxygen therapy COPD (chronic obstructive pulmonary disease) Failure of outpatient treatment Abnormal EKG Preoperative cardiovascular examination Abdominal wall abscess Hypertension Neuropathy Diabetes Sarcoidosis Home Medications ?Medication ?Instructions ?Recorded ?Last Taken ?Type pen needle, diabetic 31 gauge x #100 ea 02/08/24 Unkno wn Rx 1/4 aripiprazole 5 mg tablet 5 mg PO DAILY antidepressant 30 02/29/24 Unknown Rx days #30 tabs buspirone 10 mg tablet 10 mg PO TID depression 30 d ays 02/29/24 Unknown Rx #90 tabs doxepin 25 mg capsule 25 mg PO QHS bipolar 30 days #30 02/29/24 Unknown Rx caps hydroxyzine pamoate 25 mg capsule 50 mg (2 x 25 mg) PO TID anxiety 02/29/24 Unknown Rx (Vistaril) 30 days #180 caps quetiapine 200 mg tablet 200 mg PO QHS bipolar 30 day s #30 02/29/24 Unknown Rx tabs blood-glucose meter #1 ea 08/29/24 Unknown Rx cyclobenzaprine 10 mg tablet 10 mg PO TID PRN muscle s pasm 08/29/24 Unknown History insulin admin supplies (Autoject 2 #1 ea 08/29/24 Unkn own Rx Injection Device subcutaneous insulin pen) insulin glargine 100 unit/mL (3 40 unit subcut BIDCM b lood sugar 08/29/24 Unknown History mL) subcutaneous pen (Lantus Solostar U-100 Insulin) insulin lispro 100 unit/mL 1 sliding scale dose subcut ACHS 08/29/24 Unknown History subcutaneous pen blood sugar ondansetron 8 mg disintegrating 8 mg PO Q8H PRN nausea and 10/06/24 Unknown Rx tablet vomiting #12 tabs Allergy/AdvReac Type Severity Reaction Status Date / Time aspirin AdvReac Other Verified 10/13/24 06:42 hydromorphone (From Dilaudid) AdvReac Other Verified 10/13/24 06:42 pseudoephedrine HCl (From AdvReac Other Verified 10/13/24 06:42 Sudafed) Surgical History History of cholecystectomy Hx of brain surgery Hx of appendectomy Hx of section Hx of total adrenalectomy Social History household members: none housing: homeless Smoking Status: Current every day smoker tobacco type: cigarettes quit status: considering quitting alcohol intake: never substance use type: former substance user ROS ROS ED ROS Narrative Whole body pain. Nausea without vomiting or diarrhea. No fever. Constitutional Constitutional ED: Denies chills Eyes Eyes: Denies blurry vision ENT ENT ED: Denies ear pain Cardiovascular Cardiovascular: Denies chest pain Respiratory/Chest Respiratory/Chest: Denies cough or dyspnea Gastrointestinal Gastrointestinal: Denies abdominal pain Genitourinary Genitourinary ED: Denies dysuria or hematuria Musculoskeletal Musculoskeletal: Reports arthralgias and myalgias Integumentary Denies abscess, Abrasions or rash Neurologic Neurologic: Denies headache(s) Psychiatric Psychiatric: Reports anxiety Endocrine Endocrinology: Denies cold intolerance Hematologic/Lymphatic Hematologic/Lymphatic: Reports none Allergic/Immunologic Allergic/Immunologic ED: Denies mouth swelling, tongue swelling or urticaria EXAM Physical Exam Narrative Exam Narrative: Well-appearing 54-year-old female. Vital signs stable afebrile. Pulse ox 95% on room air no hypoxia. No distress. H EENT exam pupils round reactive light. Moist [place] membranes. No trauma. Neck nontender. No lymphadenopathy. No meningismus. Lungs clear to auscultation bilaterally. Heart regular rhythm no murmur. Chest wall and ribs nontender. Abdomen soft nontender. No peritoneal signs. Moving all 4 extremities. 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 Dorsi plantarflexion intact. Phalen's and Tinel signs are negative. Equal symmetrical radial pulses. Calves are nontender without edema or cords. Full range of motion both upper and lower extremities. Back nontender. Neurologically she is awake and alert. Answering questions and following commands. She has a very benign exam. Const Vital Signs: 10/13/24 06:44 Temperature 98.7 F Temperature Source Oral Pulse Rate 87 Respiratory Rate 16 Blood Pressure 154/76 H Blood Pressure Mean 102 Pulse Ox 95 Oxygen Delivery Method Room Air Positive well nourished and well developed; Negative for cachectic, contractures or unkempt General Appearance ED: well developed and NAD; Negative for unkempt, cachectic, contractures, cyanotic, diaphoretic or pallor Nutritional Appearance: Negative for cachectic HEENT Reports moist mucous membranes Negative for trauma or tenderness Eyes PERRL and EOMs intact bilaterally Neck no lymphadenopathy, supple and no JVD Chest Wall inspection of chest normal and palpation of chest normal Resp normal respiratory effort and clear to auscultation bilaterally Cardio regular rate, regular rhythm, S1 normal heart sound, S2 normal heart sound and no murmurs GI normal to inspection, nondistended, normoactive bowel sounds, non-tender, non- distended and no masses Palpation: soft; Negative for tender, guarding or rebound tenderness present Back/Spine no CVA tenderness General Back: Negative for CVA tenderness Cervical Spine: Negative for cervical spine tenderness Thoracic Spine / Upper Back: Negative for thoracic spinal tenderness or paraspinal muscle tenderness Lumbar Spine / Lower Back: Negative for lumbar spinal tenderness Extremity normal to inspection General Extremety ED: Negative for edema or tenderness General Extremity: Negative for edema Neuro oriented x3 and CN's II-XII intact bilaterally Sensorium / Orientation: alert; Negative for orientation impaired Motor Exam: strength 5/5 throughout; Negative for general weakness or strength abnormal Psych mental status grossly normal Appearance: Negative for unkempt Skin no rashes or lesions noted, no wounds and skin turgor normal General Skin Exam: Negative for jaundice or pallor Lesions: No lesion noted Rashes: No rashes noted Trauma: Negative for abrasion Wounds: Negative for wounds noted MDM MDM MDM Narrative Medical decision making narrative: 54-year-old diabetic female with a history of fibromyalgia complaining of diffuse body pain. She has been seen recently she had unremarkable blood work other than hyperglycemia consistent with her diabetes. I explained to her that really was not a way for me to diagnose her specific cause of her pain today with her benign exam. She was treated with Toradol a week ago states that is not helping her pain. I explained to her that we would not use narcotic pain medications for this type of complaint. We will check her blood sugar. I went back to reevaluate the patient and according to the nurse that she left without being discharged. Her blood sugar was 348. History & Record Review Discussion w/independent historian: Patient Additional record(s) reviewed:: Prior inpatient record, Prior outpatient record, Prior ED visit and Prior labs Lab Data Attestation: I reviewed the patient's lab results. Lab results narrative: Glucose 348. Labs: Laboratory Results - last 24 hr 10/13/24 07:20 POC Glucose 348 H Discharge Plan Triage Chief Complaint: General Illness ED Provider: Nate Conrad Dx/Rx/DC Orders Clinical Impression: Chronic pain, Eloped from emergency department, History of diabetes mellitus, Fibromyalgia Prescriptions: No Action (DME) pen needle, diabetic 31 gauge x 1/4 needle See Rx Instructions .Route Qty: 100 0RF Rx Instructions: As directed cyclobenzaprine 10 mg tablet 10 mg PO TID PRN (Reason: muscle spasm) insulin lispro 100 unit/mL insulin pen 1 sliding scale dose subcut ACHS Protocol: 5. Sliding Scale Insulin High Dosing Condition: 150-209 mg/dl = 3 units Condition: 210-259 mg/dl = 6 units Condition: 260-324 mg/dl = 9 units Condition: 325-374 mg/dl = 12 units Condition: 375-409 mg/dl = 14 units Condition: 410-449 mg/dl = 16 units Condition: Greater than 449 call physician Protocol Text: Suggested for: - Patients on Total Daily Insulin Dose of 81-120 units - Very insulin resistant patients HIGH DOSING ALGORITHM Patient Comments: PT TAKES 10 UNITS PLUS SLIDING SCALE DOSE. Rx Instructions: subcutaneously; insulin glargine [Lantus Solostar U-100 Insulin] 100 unit/mL (3 mL) insulin pen 40 unit subcut BIDCM (DME) blood-glucose meter Misc See Rx Instructions .Route Qty: 1 0RF Rx Instructions: As directed (DME) Autoject 2 Injection Device Insulin Pen See Rx Instructions .Route Qty: 1 0RF Rx Instructions: As directed ondansetron 8 mg tablet,disintegrating 8 mg PO Q8H PRN (Reason: nausea and vomiting) Qty: 12 0RF doxepin 25 mg capsule 25 mg PO QHS 30 Days Qty: 30 0RF quetiapine 200 mg tablet 200 mg PO QHS 30 Days Qty: 30 0RF buspirone 10 MG tablet 10 mg PO TID 30 Days Qty: 90 0RF hydroxyzine pamoate [Vistaril] 25 mg capsule 50 mg PO TID 30 Days Qty: 180 0RF aripiprazole 5 mg tablet 5 mg PO DAILY 30 Days Qty: 30 0RF Primary Care Provider: Care Physician,No Primary Referrals: Care Physician,No Primary [Primary Care Provider] - Activity Restrictions/Additional Instructions: Motrin and Tylenol for pain. Follow-up with a local primary care physician. Watch your blood sugars closely. Print Language: Czech Disposition Disposition: Home, Self Care Discharge Date/Time: 10/13/24 08:32
== END 2024-10-13 08:32 | disposition home or self-care (01) ==
LOC: ED 07:31
PROVIDERS: Emergency Provider Emergency Medicine; Visit Provider Emergency Medicine
DX: G89.29 Other chronic pain (principal); F31.9 Bipolar disorder, unspecified; J44.9 Chronic obstructive pulmonary disease, unspecified; Z79.4 Long term (current) use of insulin; E11.9 Type 2 diabetes mellitus without complications; F17.210 Nicotine dependence, cigarettes, uncomplicated; Z59.00 Homelessness unspecified; I10 Essential (primary) hypertension; Z99.81 Dependence on supplemental oxygen; Z79.899 Other long term (current) drug therapy; F41.9 Anxiety disorder, unspecified; Z90.49 Acquired absence of other specified parts of digestive tract; M79.7 Fibromyalgia
CPT/HCPCS: 82962; 99282

== ENCOUNTER 2025-01-17 14:36 | Emergency (ER) | payer MEDICARE, MEDICAID, SELFPAY ==
[2025-01-17 14:37] VITALS: BP 138/86; PULSE 106; RESP 22; TEMP 36.6; O2SAT 98; BMI 27.8
[2025-01-17 15:37] VITALS: BP 128/70; PULSE 79; RESP 14; O2SAT 98
[2025-01-17 15:50] LABS: Hematocrit 42.9 % (37-47); Hemoglobin 14.2 g/dL (12.0-15.0); Immature Granulocytes Count 0.040 X10^3/uL (0.0-0.0); Mean Corp Hgb Conc 33.1 g/dL (32-36); Mean Corpuscular Volume 86.5 fL (81-99); Mean Platelet Vol. 10.3 fl (6.2-12.0); NRBC Flagged by Analyzer 0 % (0-5); Platelet Count 121 K/mm3 (150-450); RBC Distribution Width CV 12.7 % (11.6-14.6); RBC Distribution Width SD 39.9 fl (35.1-43.9); Red Blood Count 4.96 M/mm3 (4.2-5.4); White Blood Count 4.5 K/mm3 (4.4-11.0)
[2025-01-17 15:52] LABS: Anion Gap 12 (5-15); BUN 29 mg/dL (4-19); BUN/Creat Ratio 45.6 RATIO (10-20); Calcium,Total 8.7 mg/dL (7.6-11.0); Carbon Dioxide 21.4 mmol/L (21.0-32.0); Chloride 101 mmol/L (98-108); Estimated Creatinine Clearance 103.98 ml/min (50-250); Glucose 361 mg/dL (70-99); Potassium 3.7 mmol/L (3.3-5.1)
[2025-01-17 15:54] LABS: Alcohol, Blood (Medical)-Serum < 10.1 mg/dL (<=10.0)
--- NOTE | 2025-01-17 15:55 | EX.ED.DYSGE1 ---
HPI History of Present Illness Chief Complaint: Suicidal Narrative Narrative: Chief complaint and HPI: 54-year-old female with past medical history of substance abuse with crack, anxiety, depression, diabetes presents for evaluation of suicidal ideation. Patient states she was in [place] for rehab for crack. States she moved back to [place] with her ex- and had a relapse. Last used 2 days ago. Patient states she has had increasing symptoms of depression including suicidal ideation. States her plan is to overdose on her medication. She states if she goes home today she will not be alive tomorrow. She denies any visual or auditory hallucinations. Denies any homicidal ideation. Denies any fever, chills, shortness of breath, chest pain, abdominal pain, nausea, vomiting. Review of systems: See HPI Medications: As listed on the chart Allergies: As listed on the chart PFSH: Per chart Vital signs: As listed on the chart. Reviewed. Physical exam: Gen: A&O x3, tearful Head: Normocephalic, atraumatic Eyes: No sclera icterus, conjunctiva clear, PERRL ENT: Moist mucous membranes CV: RRR, no murmurs Resp: Lungs CTA BL, no w/r/c GI: Abd soft, non-distended, non-tender, no r/r/g Musc: Full ROM, no deformity Skin: Warm, dry Neuro: Alert, oriented, grossly intact, sensation intact Psych: Cooperative, tearful [facility] Medical History Diabetic ulcer of foot associated with diabetes mellitus due to underlying condition, with bone involvement without evidence of necrosis Substance abuse Smoker MRSA (methicillin resistant staph aureus) culture positive Hearing loss, left Cancer Anxiety Depression Bipolar disorder GERD (gastroesophageal reflux disease) Cirrhosis Hepatitis Smoker On home oxygen therapy COPD (chronic obstructive pulmonary disease) Failure of outpatient treatment Abnormal EKG Preoperative cardiovascular examination Abdominal wall abscess Hypertension Neuropathy Diabetes Sarcoidosis Home Medications ?Medication ?Instructions ?Recorded ?Last Taken ?Type pen needle, diabetic 31 gauge x #100 ea 02/08/24 Unknown Rx 1/4 blood-glucose meter #1 ea 08/29/24 Unknown Rx cyclobenzaprine 10 mg tablet 10 mg PO TID PRN muscle spasm 08/29/24 Unknown History insulin admin supplies (Autoject 2 #1 ea 08/29/24 Unknown Rx Injection Device subcutaneous insulin pen) insulin glargine 100 unit/mL (3 50 unit subcut BIDCM blood sugar 08/29/24 Unknown History mL) subcutaneous pen (Lantus Solostar U-100 Insulin) budesonide-formoterol HFA 160 2 puff inhalation Q12H 01/17/25 Unknown History mcg-4.5 mcg/actuation aerosol inhaler buspirone 15 mg tablet 15 mg PO TID 01/17/25 Unknown History clonidine HCl 0.1 mg tablet 0.1 mg PO BID 01/17/25 Unknown History doxepin 50 mg capsule 50 mg PO QHS 01/17/25 Unknown History duloxetine 60 mg capsule,delayed 60 mg PO DAILY 01/17/25 Unknown History release guanfacine 1 mg tablet,extended 1 mg PO DAILY 01/17/25 Unknown History release 24 hr hydroxyzine HCl 50 mg tablet 50 mg PO TID PRN PRN anxiety 01/17/25 Unknown History insulin aspart U-100 100 unit/mL See Protocol subcut 4X/DAY 01/17/25 Unknown History (3 mL) subcutaneous pen (Novolog FlexPen U-100 Insulin aspart) lumateperone 21 mg capsule 21 mg PO QHS 01/17/25 Unknown History (Caplyta) ondansetron HCl 4 mg tablet 4 mg PO Q6H PRN PRN nausea/vomiting 01/17/25 Unknown History prazosin 1 mg capsule 1 mg PO QHS 01/17/25 Unknown History Allergy/AdvReac Type Severity Reaction Status Date / Time aspirin AdvReac Other Verified 01/17/25 14:37 hydromorphone (From Dilaudid) AdvReac Other Verified 01/17/25 14:37 pseudoephedrine HCl (From AdvReac Other Verified 01/17/25 14:37 Sudafed) Surgical History History of cholecystectomy Hx of brain surgery Hx of appendectomy Hx of section Hx of total adrenalectomy Social History household members: none housing: homeless Smoking Status: Current every day smoker tobacco type: cigarettes quit status: considering quitting alcohol intake: never substance use type: former substance user EXAM Physical Exam Const Vital Signs: 01/17/25 14:37 01/17/25 15:37 01/17/25 16:37 Temperature 97.9 F Temperature Source Temporal Pulse Rate 106 H 79 62 Respiratory Rate 22 H 14 14 Blood Pressure 138/86 H 128/70 H 115/87 H Blood Pressure Mean 103 89 96 Pulse Ox 98 98 99 Oxygen Delivery Method Room Air Room Air Room Air MDM MDM MDM Narrative Medical decision making narrative: 54-year-old female with past medical history of substance abuse with crack, anxiety, depression, diabetes presents for evaluation of suicidal ideation. Patient states she has had increasing symptoms of depression including suicidal ideation. States her plan is to overdose on her medication. Differential diagnosis includes but is not limited to suicidal ideation, polysubstance abuse, depression, anxiety. Patient requesting some Ativan. This was ordered. Laboratory workup ordered for inpatient psychiatric placement. Patient will be pink slip. She affirmed understand the plan. CBC without leukocytosis or anemia. Patient has baseline thrombocytopenia. BMP relatively unremarkable except for hyperglycemia. Subcu insulin ordered. Alcohol level unremarkable. Urine drug screen positive for cocaine. Patient is cleared medically for inpatient psychiatric facility. Crisis evaluated the patient. They are working on placement. Patient will be monitored in emergency department until inpatient psychiatric placement is arranged. Impression: 1. Suicidal ideation 2. History of cocaine abuse 3. Hyperglycemia and known diabetic Lab Data Labs: Laboratory Results - last 24 hr 01/17/25 01/17/25 01/17/25 15:15 15:40 17:15 WBC 4.5 RBC 4.96 Hgb 14.2 Hct 42.9 MCV 86.5 MCH 28.6 MCHC 33.1 RDW Std Deviation 39.9 RDW Coeff of Cele 12.7 Plt Count 121 L MPV 10.3 Immature Gran % (Auto) 0.900 Neut % (Auto) 56.7 Lymph % (Auto) 26.2 Clinch % (Auto) 11.3 H Eos % (Auto) 4.0 Baso % (Auto) 0.9 Absolute Neuts (auto) 2.6 Absolute Lymphs (auto) 1.18 Nucleated RBC % 0 Sodium 135 Potassium 3.7 Chloride 101 Carbon Dioxide 21.4 Anion Gap 12 BUN 29 H Creatinine 0.63 L Estim Creat Clear Calc 103.98 Est GFR (MDRD) Non-Af 105 BUN/Creatinine Ratio 45.6 H Glucose 361 H Calcium 8.7 Urine Opiates Screen NEGATIVE U Buprenorphine Qual NEGATIVE Ur Oxycodone Screen NEGATIVE Urine Methadone Screen NEGATIVE Urine Fentanyl Screen NEGATIVE Ur Barbiturates Screen NEGATIVE Ur Phencyclidine Scrn NEGATIVE Ur Amphetamines Screen NEGATIVE U Benzodiazepines Scrn NEGATIVE Urine Cocaine Screen PRESUMPTIVE POSITIVE U Cannabinoids Screen NEGATIVE Ethyl Alcohol < 10.1 POC Glucose 278 H Discharge Plan Triage Chief Complaint: Suicidal ED Provider: Laurent Arzola Dx/Rx/DC Orders Prescriptions: No Action (DME) pen needle, diabetic 31 gauge x 1/4 needle See Rx Instructions .Route Qty: 100 0RF Rx Instructions: As directed cyclobenzaprine 10 mg tablet 10 mg PO TID PRN (Reason: muscle spasm) insulin glargine [Lantus Solostar U-100 Insulin] 100 unit/mL (3 mL) insulin pen 50 unit subcut BIDCM (DME) blood-glucose meter Misc See Rx Instructions .Route Qty: 1 0RF Rx Instructions: As directed (DME) Autoject 2 Injection Device Insulin Pen See Rx Instructions .Route Qty: 1 0RF Rx Instructions: As directed doxepin 50 mg capsule 50 mg PO QHS clonidine HCl 0.1 mg tablet 0.1 mg PO BID buspirone 15 mg tablet 15 mg PO TID budesonide-formoterol 160-4.5 mcg/actuation HFA aerosol inhaler 2 puff INHALATION Q12H prazosin 1 mg capsule 1 mg PO QHS ondansetron HCl 4 mg tablet 4 mg PO Q6H PRN PRN (Reason: nausea/vomiting) hydroxyzine HCl 50 mg tablet 50 mg PO TID PRN PRN (Reason: anxiety) insulin aspart U-100 [Novolog FlexPen U-100 Insulin] 100 unit/mL (3 mL) insulin pen See Protocol subcut 4X/DAY Protocol: 6. Sliding Scale Insulin Custom Condition: mg/dl range Dose/Route: Number of Units Protocol Text: Custom Sliding Scale duloxetine 60 mg capsule,delayed release(DR/EC) 60 mg PO DAILY guanfacine 1 mg tablet extended release 24 hr 1 mg PO DAILY Caplyta 21 mg capsule 21 mg PO QHS Primary Care Provider: Care Physician,No Primary Referrals: Care Physician,No Primary [Primary Care Provider, Medical] Print Language: [place]
--- OUTSIDE RECORDS SUMMARY | 2025-01-17 16:10 | XMS RPT_ITS | CCD ---
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 Walking disability; Translations: [Difficulty in walking, not elsewhere classified] 04-29-2024 Chronic Other nervous system disorders (1 source) Other chronic pain; Translations: [Other chronic pain] Onset: 12-03-2024 Chronic Other nervous system disorders (1 source) Difficulty in walking, not elsewhere classified; Translations: [Difficulty in walking, not elsewhere classified] Onset: 05-01-2024 Chronic Other nutritional; endocrine; and metabolic disorders (12 sources) Obesity; Translations: [Obesity, unspecified] Onset: 10-14-2007 04-10-2013 Chronic Other nutritional; endocrine; and metabolic disorders (7 sources) Obese class I; Translations: [Class 1 obesity] 04-29-2024 Chronic Other screening for suspected conditions (not mental disorders or infectious disease) (18 sources) Abnormal finding on screening procedure; Translations: [Abnormal level of other drugs, medicaments and biological substances in specimens from other organs, systems and tissues] Onset: 03-04-2012 04-10-2021 Episodic Other skin disorders (3 sources) Sebaceous cyst of skin; Translations: [Sebaceous cyst] 10-01-2024 Episodic Other skin disorders (1 source) Rash and other nonspecific skin eruption; Translations: [Rash and other nonspecific skin eruption] Onset: 10-20-2024 Episodic Other upper respiratory infections (3 sources) Acute maxillary sinusitis; Translations: [Acute maxillary sinusitis, unspecified] Onset: 03-13-2024 03-13-2024 Episodic Residual codes; unclassified (5 sources) Sleep apnea; Translations: [Sleep apnea, unspecified] Onset: 12-08-2013 12-08-2013 Chronic Residual codes; unclassified (6 sources) Patient noncompliance - general; Translations: [General patient noncompliance] 02-08-2024 Episodic Residual codes; unclassified (7 sources) Tobacco user; Translations: [Tobacco use] 04-30-2024 Episodic Residual codes; unclassified (20 sources) Noncompliance with medication regimen; Translations: [Noncompliance with medication regimen] 02-21-2024 Episodic Residual codes; unclassified (5 sources) History of clinical finding in subject; Translations: [Other specified health status] 08-31-2024 Episodic Screening and history of mental health and substance abuse codes (17 sources) H/O: attempted suicide; Translations: [History of suicide attempt] Onset: 10-17-2010 04-10-2013 Episodic Sprains and strains (7 sources) Sprain of shoulder rotator cuff; Translations: [Sprain of unspecified rotator cuff capsule, initial encounter] 01-29-2013 Episodic Substance-related disorders (20 sources) Tobacco dependence syndrome; Translations: [Nicotine dependence, unspecified, uncomplicated] Onset: 12-28-2023 04-10-2013 Chronic Suicide and intentional self-inflicted injury (16 sources) Poisoning by unspecified drugs, medicaments and biological substances, intentional self-harm, initial encounter; Translations: [Intentional drug overdose] Onset: 02-10-2024 04-10-2013 Episodic Superficial injury; contusion (7 sources) Contusion of upper limb; Translations: [Contusion [...] regimen due to unspecified reason] Onset: 02-29-2024 Unclassified (1 source) Encounter for screening for COVID-19; Translations: [Encounter for screening for COVID-19] Onset: 10-20-2024 Unclassified (1 source) Homelessness unspecified; Translations: [Homelessness unspecified] Onset: 10-20-2024 Urinary tract infections (8 sources) Acute cystitis; Translations: [Acute cystitis without hematuria] Onset: 03-24-2024 03-24-2024 Episodic Past or Other Problems Problem Classification Problem Date Documented Date Episodic/Chronic Acute and unspecified renal failure (7 sources) Acute renal failure syndrome; Translations: [Acute kidney failure, unspecified] Onset: 05-09-2024 05-07-2024 Episodic Complications of surgical procedures or medical care (5 sources) Postoperative hematoma formation; Translations: [Hematoma complicating a procedure] Onset: 01-03-2009 Resolved: 06-21-2010 06-21-2010 Episodic E Codes: Fall (8 sources) Fall; Translations: [Unspecified fall, initial encounter] Onset: 05-01-2024 04-29-2024 Episodic Esophageal disorders (5 sources) Gastroesophageal reflux disease; Translations: [Gastro-esophageal reflux disease without esophagitis] Resolved: 06-21-2010 06-21-2010 Chronic Malaise and fatigue (15 sources) Asthenia; Translations: [Weakness] Onset: 05-01-2024 04-29-2024 Episodic Other aftercare (1 source) nursing home (current) use of insulin; Translations: [nursing home (current) use of insulin] Onset: 05-01-2024 Episodic Other connective tissue disease (5 sources) [...] limb] Onset: 04-30-2005 Resolved: 09-11-2007 10-24-2023 Chronic Pleurisy; pneumothorax; pulmonary collapse (14 sources) Bilateral pleural effusion; Translations: [Pleural effusion, not elsewhere classified] Onset: 05-09-2024 04-29-2024 Episodic Pneumonia (except that caused by tuberculosis or sexually transmitted disease) (9 sources) Pneumonia; Translations: [Pneumonia, unspecified organism] Onset: 05-01-2024 04-29-2024 Episodic Poisoning by other medications and drugs (5 sources) Acetaminophen overdose; Translations: [Poisoning by 4-Aminophenol derivatives, accidental (unintentional), initial encounter] Onset: 10-17-2010 04-10-2021 Episodic Residual codes; unclassified (7 sources) Other specified health status; Translations: [Failure of outpatient treatment] Onset: 02-29-2024 02-08-2024 Episodic Residual codes; unclassified (1 source) Illness, [...] Test Name Value Interpretation Reference Range Facility [place] 10-23-2024 Potassium [Moles/Vol] 3.4 mmol/L Low 3.5-5.0 [facility] Comment on above: Performed By: #### K #### [facility] [address] [place] [address] LABORATORYOrdered By: Antionette Barillas on 10-23-2024 Blood Glucose Testing Reason Routine (10/23/24 10:42 PM) [facility] Glucose [Mass/Vol] 313 mg/dL High 70 - 110 mg/dL [facility] Glucose [Mass/Vol] 306 mg/dL High 70 - 110 mg/dL [facility] LABORATORYOrdered By: Elidia Tovar on 10-23-2024 Glucose [Mass/Vol] 313 mg/dL High 70 - 110 mg/dL [facility] LABORATORYOrdered By: SYSTEM SYSTEM on 10-23-2024 Potassium [Moles/Vol] 3.4 mmol/L Low 3.5 - 5.0 mEq/L AH ADM SS LABORATORYOrdered By: Marco A Navarro on 10-22-2024 Blood Glucose Testing Reason Routine (10/22/24 6:13 PM) [facility] CKon 10-21-2024 CK [Catalytic activity/Vol] 23 U/L Normal 7- [facility] Comment on above: Performed By: #### C K #### [facility] [address] [place] [address] LABORATORYOrdered By: Love Small on 10-21-2024 Appearance (U) Turbid *ABN* (10/21/24 12:22 PM) Invalid Interpretation Code Clear AH Auto Urine SS Bacteria LM.HPF (Urine sed) [#/Area] Trace /HPF Invalid Interpretation Code Negative Auto Urine SS Bilirubin Ql (U) Negative (10/21/24 12:22 PM) Normal Neg-Trace AH Auto Urine SS Color (U) Yellow (10/21/24 12:22 PM) Normal AH Auto Urine SS Glucose Test strip (U) [Mass/Vol] 500 mg/dL Invalid Interpretation Code Negative AH Auto Urine SS Hemoglobin Auto test strip (U) [Mass/Vol] Large *ABN* (10/21/24 12:22 PM) Invalid Interpretation Code Neg-Trace AH Auto Urine SS Ketones Ql (U) Trace mg/dL Normal Neg-Trace AH Auto U rine SS UA Leuk Est Moderate *ABN* (10/21/24 12:22 PM) Invalid Interpretation Code Negative AH Auto Urine SS UA Nitrite Positive *ABN* (10/21/24 12:22 PM) Invalid Interpretation Code Negative AH Auto Urine SS UA pH 6.0 (10/21/24 12:22 PM) Normal 5.0 - 8.0 AH Auto Urine SS UA Protein 100 mg/dL Invalid Interpretation Code Negative AH Auto Urine SS UA RBC 3-5 /HPF Invalid Interpretation Code 0-2 AH Auto Urine SS UA Spec Grav >=1.030 *ABN* (10/21/24 12:22 PM) Invalid Interpretation Code 1.006-1.029 AH Auto Urine SS UA Specimen Type Clean Catch (10/21/24 12:22 PM) Normal AH Auto Urine SS UA Squam Epithelial Negative Normal 0-20 AH Au to Urine SS UA Urobilinogen 0.2 E.U./dL Normal 0.2-1.0 AH Auto Urine SS WBC LM.HPF (Urine sed) [#/Area] LOADED /HPF Invalid Interpretation Code 0-5 AH Auto Urine SS Yeast LM.HPF (Urine sed) [#/Area] 2 /[HPF] Invalid Interpretation Code AH Auto Urine SS LABORATORYOrdered By: SYSTEM SYSTEM on 10-21-2024 CK [Catalytic activity/Vol] 23 U/L Normal 7 - 185 U/L AH ADM SS No Panel Informationon 10-21 Culture Urine >100,000 cfu/ml Escherichia coli PINEDA to follow >100,000 cfu/ml Group B Beta Hemolytic Strep (Strep agalactiae) Sensitivity testing is not recommended for one of the following reasons: 1. Established susceptibility patterns are available or 2. Interpretative criteria are not available. Multiple bacterial morphotypes present. Probable Contamination. Suggest recollection if clinically indicated. [facility] UAon 10-21-2024 Color (U) Yellow Normal [facility] Comment on above: Performed By: #### U AMIC, UA #### [facility] [address] [place] [phone] Glucose (U) [Mass/Vol] 500 mg/dL Abnormal Negative [facility] Comment on above: Performed By: #### U AMIC, UA #### [facility] [address] [place] [address] Ketones Ql (U) Trace Normal Neg-Trace [facility] Comment on above: Performed By: #### U AMIC, UA #### [place] [address] UA Appear Turbid Abnormal Clear [facility] Comment on above: Performed By: #### U AMIC, UA #### [place] [address] UA Blood Large Abnormal Neg-Trace [facility] Comment on above: Performed By: #### U AMIC, UA #### [place] [address] UA Leuk Est Moderate Abnormal Negative [facility] Comment on above: Performed By: #### U AMIC, UA #### [place] [address] UA Nitrite Positive Abnormal Negative [facility] Comment on above: Performed By: #### U AMIC, UA #### [place] [address] UA pH 6.0 Normal 5.0 - 8.0 [facility] Comment on above: Performed By: #### U AMIC, UA #### [place] [address] UA Protein 100 mg/dL Abnormal Negative [facility] Comment on above: Performed By: #### U AMIC, UA #### [place] [address] UA Spec Grav >=1.030 Abnormal 1.006-1.029 [facility] Comment on above: Performed By: #### U AMIC, UA #### [place] [address] UA Specimen Type Clean Catch Normal [facility] Comment on above: Performed By: #### U AMIC, UA #### [place] [address] UA Urobilinogen 0.2 E.U./dL Normal 0.2-1.0 [facility] Comment on above: Performed By: #### U AMIC, UA #### [place] [address] Urobilinogen (U) [Mass/Vol] Negative Normal Neg-Trace [facility] Comment on above: Performed By: #### U AMIC, UA #### [address] [address] UAMICon 10-21-2024 UA Bacteria Trace Abnormal Negative [facility] Comment on above: Performed By: #### U AMIC, UA #### [place] [address] UA RBC 3-5 Abnormal 0-2 [facility] Comment on above: Performed By: #### U AMIC, UA #### [place] [address] UA Squam Epithelial Negative Normal 0-20 [facility] Comment on above: Performed By: #### U AMIC, UA #### [place] [address] UA WBC LOADED Abnormal 0-5 [facility] Comment on above: Performed By: #### U AMIC, UA #### [place] [address] UA Yeast 2+ /hpf Abnormal [facility] Comment on above: Performed By: #### U AMIC, UA #### [place] [address] .Auto Diffon 10-20-2024 Basophil, Absolute 0.1 10 3/mcL Normal 0.0-0.3 [facility] Comment on above: Performed By: #### G ZULLY LOZANO MDW, CMP, DRUGS, ANEU, CBC #### [place] [address] Basophils/100 WBC (Bld) 0.8 % Normal 0.0-2.5 [facility] Comment on above: Performed By: #### G ZULLY LOZANO MDW, CMP, DRUGS, ANEU, CBC #### [place] [id number] Eosinophil, Absolute 0.1 10 3/mcL Normal 0.0-0.7 [facility] Comment on above: Performed By: #### G ZULLY LOZANO MDW, CMP, DRUGS, ANEU, CBC #### [place] [address] Eosinophils/100 WBC (Bld) 0.5 % Normal 0.0-6.0 [facility] Comment on above: Performed By: #### G , JAMAL ANDREA, CMP, DRUGS, ANEU, CBC #### [address] [address] Lymphocyte, Absolute 1.9 10 3/mcL Normal 0.9-4.3 [facility] Comment on above: Performed By: #### G , JAMAL ANDREA, CMP, DRUGS, ANEU, CBC #### [address] [address] Lymphocytes/100 WBC (Bld) 18.7 % Low 20.0-40.0 [facility] Comment on above: Performed By: #### G , JAMAL ANDREA, CMP, DRUGS, ANEU, CBC #### [address] [address] Monocyte, Absolute 1.0 10 3/mcL Normal 0.1-1.4 [facility] Comment on above: Performed By: #### G , JAMAL ANDREA, CMP, DRUGS, ANEU, CBC #### [address] [address] Monocytes/100 WBC (Bld) 10.1 % Normal 2.0-13.0 [facility] Comment on above: Performed By: #### G , JAMAL ANDREA, CMP, DRUGS, ANEU, CBC #### [address] [address] Neutrophils/100 WBC (Bld) 69.9 % Normal 50.0-75.0 [facility] Comment on above: Performed By: #### G , JAMAL ANDREA, CMP, DRUGS, ANEU, CBC #### [address] [address] .GFRon 10-20-2024 Estimated Glomerular Filtration Rate 108 ml/min/1.73sqm Normal [facility] Comment on above: Result Comment: Stages of Chronic Kidney Disease (CKD) Stage Description eGFR(ml/min/1.73 sq.m.) CKD 1 Normal kidney function or >=90 normal kindney function with possible kidney damage (ex. Proteinuria) CKD 2 Kidney damage with mild loss 60-89 of kidney function CKD 3a Mild to moderate loss of kidney 45-59 function CKD 3b Moderate to severe loss of 30-44 of kindey function CKD 4 Severe loss of kidney function 15-29 CKD 5 Kidney failure <15 Note: (go live 2024) the eGFR calculation was updated to the 2020 CKD-EPI creatinine equation without a race factor to calculate the eGFR results. Performed By: #### K #### [place] [address] .MDWon 10-20-2024 Monocyte Distribution Width 17.57 Normal 0.00-20.00 [facility] Comment on above: Result Comment: For ED adult patients suspected of sepsis, MDW<=20.0 does not rule out sepsis or risk of sepsis Performed By: #### G ZULLY LOZANO MDW, CMP, DRUGS, ANEU, CBC #### [place] [address] .NEUABSon 10-20-2024 Neutrophil, Absolute 7.1 10 3/mcL Normal 2.3-8.1 [facility] Comment on above: Performed By: #### G ZULLY LOZANO MDW, CMP, DRUGS, ANEU, CBC #### [place] [address] CBCon 10-20-2024 Erythrocyte distribution width (RBC) [Ratio] 13.9 % Normal 11.5-15.5 [facility] Comment on above: Performed By: #### G ZULLY LOZANO MDW, CMP, DRUGS, ANEU, CBC #### [place] [address] Hematocrit (Bld) [Volume fraction] 47.1 % High 34.0-46.0 [facility] Comment on above: Performed By: #### G ZULLY LOZANO MDW, CMP, DRUGS, ANEU, CBC #### [place] [address] Hgb 16.4 G/dL High 12.0-16.0 [facility] Comment on above: Performed By: #### G , JAMAL ANDREA, CMP, DRUGS, ANEU, CBC #### [place] [id number] MCH (RBC) [Entitic mass] 29.5 pg Normal 27.0-33.0 [facility] Comment on above: Performed By: #### G ZULLY LOZANO MDW, CMP, DRUGS, ANEU, CBC #### [place] [address] MCHC 34.9 G/dL Normal 32.0-36.0 [facility] Comment on above: Performed By: #### G , JAMAL ANDREA, CMP, DRUGS, ANEU, CBC #### [place] [address] MCV (RBC) [Entitic vol] 84.6 fL Normal 80.0-99.0 [facility] Comment on above: Performed By: #### G , JAMAL ANDREA, CMP, DRUGS, ANEU, CBC #### [place] [address] Platelet 211 10 3/mcL Normal 150-450 [facility] Comment on above: Performed By: #### G , JAMAL ANDREA, CMP, DRUGS, ANEU, CBC #### [place] [address] Platelet mean volume (Bld) [Entitic vol] 8.5 fL Normal 6.6-10.5 [facility] Comment on above: Performed By: #### G ZULLY LOZANO MDW, CMP, DRUGS, ANEU, CBC #### [place] [address] RBC 5.57 10 6/mcL High 4.10-5.30 [facility] Comment on above: Performed By: #### G , ZULLY, JAMAL, CMP, DRUGS, ANEU, CBC #### [place] [address] WBC 10.2 10 3/mcL Normal 4.5-10.8 [facility] Comment on above: Performed By: #### G , ZULLY, W, CMP, DRUGS, ANEU, CBC #### [place] [address] CMPon 10-20-2024 Albumin Level 4.0 G/dL Normal 3.2-4.8 [facility] Comment on above: Performed By: #### K #### [address] [address] Albumin/Globulin [Mass ratio] 1.3 {ratio} Normal 0.9-1.6 [facility] Comment on above: Performed By: #### K #### [address] [address] ALP [Catalytic activity/Vol] 105 U/L Normal 38-126 [facility] Comment on above: Performed By: #### K #### [address] [address] ALT [Catalytic activity/Vol] 87 U/L High 10-49 [facility] Comment on above: Performed By: #### K #### [place] [id number] AST [Catalytic activity/Vol] 44 U/L High 8-34 [facility] Comment on above: Performed By: #### K #### [address] [address] Bili Total 1.00 mg/dL Normal 0.20-1.20 [facility] Comment on above: Result Comment: Use of this assay is not recommended for patients undergoing treatment with eltrombopag due to the potential for falsely elevated results. Performed By: #### K #### [place] [id number] BUN/Creatinine Ratio 28.1 ratio High 10.0-22.0 [facility] Comment on above: Performed By: #### K #### [address] [address] Calcium [Mass/Vol] 9.8 mg/dL Normal 8.7-10.4 [facility] Comment on above: Performed By: #### K #### [address] [address] Chloride [Moles/Vol] 95 mmol/L Low 98-110 [facility] Comment on above: Performed By: #### K #### [address] [address] CO2 [Moles/Vol] 20 mmol/L Low 22-32 [facility] Comment on above: Performed By: #### K #### [place] [id number] Creatinine [Mass/Vol] 0.57 mg/dL Normal 0.50-1.20 [facility] Comment on above: Result Comment: Test ing performed on Involver analyzer using enzymatic creatinine methodology. Performed By: #### K #### [address] [address] Electrolyte Balance 20.0 mEq/L High 4.0-15.0 [facility] Comment on above: Performed By: #### K #### [place] [id number] Globulin 3.1 G/dL Normal 2.5-4.2 [facility] Comment on above: Performed By: #### K #### [place] [id number] Glucose [Mass/Vol] 314 mg/dL High 70-110 [facility] Comment on above: Performed By: #### K #### [place] [id number] Potassium [Moles/Vol] 3.2 mmol/L Low 3.5-5.0 [facility] Comment on above: Performed By: #### K #### [place] [id number] Sodium [Moles/Vol] 135 mmol/L Low 136-145 [facility] Comment on above: Performed By: #### K #### [place] [id number] Total Protein 7.1 G/dL Normal 5.7-8.2 [facility] Comment on above: Performed By: #### K #### [place] [id number] Urea nitrogen [Mass/Vol] 16.0 mg/dL Normal 8.0-22.0 [facility] Comment on above: Performed By: #### K #### [place] [id number] CVFLURVon 07-08-2025 FLU A PCR Negative Normal Negative [facility] Comment on above: Result Comment: [place] [id number] Performed By: #### C VFLURV #### [place] [address] FLU B PCR Negative Normal Negative [facility] Comment on above: Result Comment: Note s [id number] Performed By: #### C VFLURV #### [place] [id number] [place], [place] [id number] RSV PCR Negative Normal Negative [facility] Comment on above: Result Comment: [place] [id number] Performed By: #### C VFLURV #### [place] [address] SARS-CoV-2 (COVID-19) RNA SIRENA+probe Ql (Unsp spec) Negative Normal Negative [facility] Comment on above: Result Comment: Note s [id number] Results from the Xpert Xpress SARS-CoV-2/Flu/RSV or Xpert Xpress SARS-CoV-2 only test should be correlated with the clinical history, epidemiological data, and other data available to the clinician evaluating the patient. Performance of the Xpert Xpress SARS-CoV-2/Flu/RSV or Xpert Xpress SARS-CoV-2 only test has only been established in nasopharyngeal swab specimens. Erroneous test results might occur from improper specimen collection; failure to follow the recommended sample collection, handling, and storage procedures; technical error; or sample mix-up.False negative results may occur if virus is present at levels below the analytical limit of detection. Viral nucleic acid may persist in vivo, independent of virus viability. Detection of analyte target(s) does not imply that the corresponding virus(es) are infectious or are the causative agents for clinical symptoms.Recent patient exposure to FluMist or other live attenuated influenza vaccines may cause inaccurate positive results. FDA Approved. Performed By: #### C VFLURV #### [place] [address] DRUGSon 10-20-2024 Acetaminophen [Mass/Vol] ug/mL Low 10.0-20.0 [facility] Comment on above: Performed By: #### K #### [place] [address] Ethanol Level <10.0 Normal [facility] Comment on above: Performed By: #### K #### [place] [address] Salicylate Lvl (ds) <3.0 Low 10.0-25.0 [facility] Comment on above: Performed By: #### K #### [place] [address] Serum Drugs screened: See Below Normal [facility] Comment on above: Result Comment: This drug screen is a presumptive screening only. No confirmation will be performed unless requested. Drugs included in the serum drug screen are: Threshold Ethanol 10.0 mg/dL Salicylate 2.0 mg/dl Acetaminophen 2.0 mcg/mL Testing has been performed FOR MEDICAL PURPOSES ONLY. Performed By: #### K #### [place] [address] DRUGUon 10-20-2024 Cocaine Ql (U) Positive Abnormal Negative [facility] Comment on above: Performed By: #### K #### [place] [address] Amphetamine (u) Negative Normal [facility] Comment on above: Performed By: #### K #### [place] [address] Barbiturate (u) Negative Normal [facility] Comment on above: Performed By: #### K #### [place] [id number] Benzodiazepine (u) Negative Normal Negative [facility] Comment on above: Performed By: #### K #### [place] [address] Cannabinoid (u) Negative Normal [facility] Comment on above: Performed By: #### K #### [place] [address] Fentanyl (u) Negative Normal Negative [facility] Comment on above: Result Comment: Test ing has been performed FOR MEDICAL PURPOSES ONLY. Performed By: #### K #### [place] [id number] Methadone Ql (U) Negative Normal [facility] Comment on above: Performed By: #### K #### [address] [address] Opiate (u) Negative Normal Negative [facility] Comment on above: Performed By: #### K #### [address] [address] Oxycodone (u) Negative Normal Negative [facility] Comment on above: Result Comment: Test ing has been performed FOR MEDICAL PURPOSES ONLY. Performed By: #### K #### [place] [address] PCP (u) Negative Normal Negative [facility] Comment on above: Performed By: #### K #### [place] [id number] Propoxyphene (u) Negative Normal Negative [facility] Comment on above: Performed By: #### K #### [place] [id number] U pH Drug Scrn 5.5 Normal 5.0-8.0 [facility] Comment on above: Performed By: #### K #### [address] [address] Urine Drugs screened: See Below Normal [facility] Comment on above: Result Comment: This drug screen is a presumptive screening only. No confirmation will be performed unless requested. Drugs screened include: Threshold Amphetamines/Methamphetamines 1,000 ng/mL Barbiturates 200 ng/mL Benzodiazepine metabolites 200 ng/mL Cannabinoids (THC metabolites) 50 ng/mL Benzoylecognine (Cocaine metab) 300 ng/mL Opiates 300 ng/mL Phencyclidine (PCP) 25 ng/mL Methadone 300 ng/mL Propoxyphene 300 ng/mL Fentanyl 1.0 ng/mL Oxycodone 100 ng/mL Testing has been performed FOR MEDICAL PURPOSES ONLY. Performed By: #### K #### [place] [address] LABORATORYOrdered By: Olivia Riojas on 10-20-2024 Acetaminophen [Mass/Vol] mcg/mL Low 10.0 - 20.0 mcg/mL AH ADM SS Amphetamines Screen Ql (U) Negative *NA* (10/20/24 8:45 PM) Invalid Interpretation Code Negative AH ADM SS Barbiturates Screen Ql (U) Negative *NA* (10/20/24 8:45 PM) Invalid Interpretation Code Negative AH ADM SS Benzodiazepines Ql (U) Negative *NA* (10/20/24 8:45 PM) Invalid Interpretation Code Negative AH ADM SS Benzoylecgonine Screen Ql (U) Positive *ABN* (10/20/24 8:45 PM) Invalid Interpretation Code Negative AH ADM SS Cannabinoids Screen Ql (U) Negative *NA* (10/20/24 8:45 PM) Invalid Interpretation Code Negative AH ADM SS Ethanol [Mass/Vol] mg/dL Invalid Interpretation Code AH ADM SS fentaNYL Screen Ql (U) Negative 2 *NA* (10/20/24 8:45 PM) Invalid Interpretation Code Negative AH ADM SS Comment on above: Interpretive Data: T esting has been performed FOR MEDICAL PURPOSES ONLY. Methadone Screen Ql (U) Negative *NA* (10/20/24 8:45 PM) Invalid Interpretation Code Negative AH ADM SS Opiates Screen Ql (U) Negative *NA* (10/20/24 8:45 PM) Invalid Interpretation Code Negative AH ADM SS oxyCODONE Ql (U) Negative 3 *NA* (10/20/24 8:45 PM) Invalid Interpretation Code Negative AH ADM SS Comment on above: Interpretive Data: T esting has been performed FOR MEDICAL PURPOSES ONLY. pH (U) 5.5 [pH] Normal 5.0 - 8.0 AH Chemistry S Phencyclidine Ql (U) Negative *NA* (10/20/24 8:45 PM) Invalid Interpretation Code Negative AH ADM SS Propoxyphene Screen Ql (U) Negative *NA* (10/20/24 8:45 PM) Invalid Interpretation Code Negative AH ADM SS Salicylates [Mass/Vol] mg/dL Low 10.0 - 25.0 mg/dL AH ADM SS Serum Drugs screened: See Below 6 (10/20/24 8:45 PM) Normal Chemistry S Comment on above: Interpretive Data: T his drug screen is a presumptive screening only. No confirmation will be performed unless requested. Drugs included in the serum drug screen are: Threshold Ethanol 10.0 mg/dL Salicylate 2.0 mg/dl Acetaminophen 2.0 mcg/mL Testing has been performed FOR MEDICAL PURPOSES ONLY. Urine Drugs screened: See Below 7 (10/20/24 8:45 PM) Normal Chemistry S Comment on above: Interpretive Data: T his drug screen is a presumptive screening only. No confirmation will be performed unless requested. Drugs screened include: Threshold Amphetamines/Methamphetamines 1,000 ng/mL Barbiturates 200 ng/mL Benzodiazepine metabolites 200 ng/mL Cannabinoids (THC metabolites) 50 ng/mL Benzoylecognine (Cocaine metab) 300 ng/mL Opiates 300 ng/mL Phencyclidine (PCP) 25 ng/mL Methadone 300 ng/mL Propoxyphene 300 ng/mL Fentanyl 1.0 ng/mL Oxycodone 100 ng/mL Testing has been performed FOR MEDICAL PURPOSES ONLY. LABORATORYOrdered By: SYSTEM SYSTEM on 10-20-2024 Albumin BCP dye [Mass/Vol] 4.0 G/dL Normal 3.2 - 4.8 G/dL AH ADM SS Albumin/Globulin [Mass ratio] 1.3 {ratio} Normal 0.9 - 1.6 ratio AH ADM SS ALP [Catalytic activity/Vol] 105 U/L Normal 38 - 126 U/L AH ADM SS ALT No additional P-5'-P [Catalytic activity/Vol] 87 U/L High 10 - 49 U/L AH ADM SS AST [Catalytic activity/Vol] 44 U/L High 8 - 34 U/L AH ADM SS Basophils (Bld) [#/Vol] 0.1 103/mcL Normal 0.0 - 0.3 10^3/mcL AH Workflow SS Basophils/100 WBC (Bld) 0.8 % Normal 0.0 - 2.5 % AH Workflow SS Bilirubin [Mass/Vol] 1.00 mg/dL Normal 0.20 - 1.20 mg/dL AH ADM SS Comment on above: Interpretive Data: U se of this assay is not recommended for patients undergoing treatment with eltrombopag due to the potential for falsely elevated results. Calcium [Mass/Vol] 9.8 mg/dL Normal 8.7 - 10. 4 mg/dL AH ADM SS Chloride [Moles/Vol] 95 mmol/L Low 98 - 110 mEq/L AH ADM SS CO2 [Moles/Vol] 20 mmol/L Low 22 - 32 mEq/L AH ADM SS Creatinine [Mass/Vol] 0.57 mg/dL Normal 0.50 - 1.20 mg/dL AH ADM SS Comment on above: Interpretive Data: T esting performed on [employer] CH analyzer using enzymatic creatinine methodology. Electrolyte Balance 20.0 mEq/L High 4.0 - 15 .0 mEq/L ADM SS Eosinophils (Bld) [#/Vol] 0.1 103/mcL Normal 0.0 - 0.7 10^3/mcL Workflow SS Eosinophils/100 WBC (Bld) 0.5 % Normal 0.0 - 6.0 % Workflow SS Erythrocyte distribution width (RBC) [Ratio] 13.9 % Normal 11.5 - 15.5 % Workflow SS Estimated Glomerular Filtration Rate 108 ml/min/1.73sqm Invalid Interpretation Code ADM SS Comment on above: Interpretive Data: Stages of Chronic Kidney Disease (CKD) Stage Description eGFR(ml/min/1.73 sq.m.) CKD 1 Normal kidney function or >=90 normal kindney function with possible kidney damage (ex. Proteinuria) CKD 2 Kidney damage with mild loss 60-89 of kidney function CKD 3a Mild to moderate loss of kidney 45-59 function CKD 3b Moderate to severe loss of 30-44 of kindey function CKD 4 Severe loss of kidney function 15-29 CKD 5 Kidney failure <15 Note: (go live 2024) the eGFR calculation was updated to the 2020 CKD-EPI creatinine equation without a race factor to calculate the eGFR results. Globulin 3.1 G/dL Normal 2.5 - 4.2 G/dL ADM SS Glucose [Mass/Vol] 314 mg/dL High 70 - 110 mg/dL ADM SS Hematocrit (Bld) [Volume fraction] 47.1 % High 34.0 - 46.0 % Workflow SS Hemoglobin (Bld) [Mass/Vol] 16.4 G/dL High 12.0 - 16.0 G/dL Workflow SS Lymphocytes (Bld) [#/Vol] 1.9 103/mcL Normal 0.9 - 4.3 10^3/mcL Workflow SS Lymphocytes/100 WBC (Bld) 18.7 % Low 20.0 - 40.0 % Workflow SS MCH (RBC) [Entitic mass] 29.5 pg Normal 27.0 - 33.0 pg Workflow SS MCHC 34.9 G/dL Normal 32.0 - 36.0 G/dL Workflow SS MCV (RBC) [Entitic vol] 84.6 fL Normal 80.0 - 99.0 fL Workflow SS Monocyte distribution width Auto (Bld) [Entitic vol] 17.57 1 Normal 0.00 - 20.00 Workflow SS Comment on above: Result Comment: For ED adult patients suspected of sepsis, MDW<=20.0 does not rule out sepsis or risk of sepsis Monocytes (Bld) [#/Vol] 1.0 103/mcL Normal 0.1 - 1.4 10^3/mcL AH Workflow SS Monocytes/100 WBC (Bld) 10.1 % Normal 2.0 - 13.0 % AH Workflow SS Neutrophils (Bld) [#/Vol] 7.1 103/mcL Normal 2.3 - 8.1 10^3/mcL AH Workflow SS Neutrophils/100 WBC (Bld) 69.9 % Normal 50.0 - 75.0 % AH Workflow SS Platelet mean volume (Bld) [Entitic vol] 8.5 fL Normal 6.6 - 10.5 fL AH Workflow SS Platelets (Bld) [#/Vol] 211 103/mcL Normal 150 - 450 10^3/mcL AH Workflow SS Potassium [Moles/Vol] 3.2 mmol/L Low 3.5 - 5.0 mEq/L ADM SS Protein [Mass/Vol] 7.1 G/dL Normal 5.7 - 8.2 G/dL ADM SS RBC (Bld) [#/Vol] 5.57 106/mcL High 4.10 - 5.3 0 10^6/mcL Workflow SS Sodium [Moles/Vol] 135 mmol/L Low 136 - 145 mEq/L ADM SS Urea nitrogen [Mass/Vol] 16.0 mg/dL Normal 8.0 - 22.0 mg/dL ADM SS Urea nitrogen/Creatinine [Mass ratio] 28.1 ratio High 10.0 - 22.0 ratio ADM SS WBC (Bld) [#/Vol] 10.2 103/mcL Normal 4.5 - 10.8 10^3/mcL Workflow SS LABORATORYOrdered By: Elis Osborne on 10-20-2024 Beta HCG ( test) Ql (U) HCG not detected. Very dilute urine specimens, as indicated by a low specific gravity, may not contain termite control representative levels of hCG. If is still suspected, a first morning urine specimen should be collected 48 hours later and tested. Invalid Interpretation Code Manual Urine SS HCG Qn (U) Negative (10/20/24 8:45 PM) Normal AH Manual Urine SS LABORATORYOrdered By: Elis Espinosa on 10-20-2024 FLUAV RNA SIRENA+probe Ql (Resp) Negative 11 (10/20/24 8:45 PM) Normal Negative AH Auto Viro/Sero SS Comment on above: Result Comment: [place] [id number] FLUBV RNA SIRENA+probe Ql (Resp) Negative 12 (10/20/24 8:45 PM) Normal Negative AH Auto Viro/Sero SS Comment on above: Result Comment: Note s [id number] RSV PCR Negative 13 (10/20/24 8:45 PM) Normal Negative AH Auto Viro/Sero SS Comment on above: Result Comment: Note s [id number] SARS-CoV-2 (COVID-19) RNA SIRENA+probe Ql (Resp) Negative 9, 10 (10/20/24 8:45 PM) Normal Negative AH Auto Viro/Sero SS Comment on above: Result Comment: Note s [id number] Interpretive Data: R esults from the Xpert Xpress SARS-CoV-2/Flu/RSV or Xpert Xpress SARS-CoV-2 only test should be correlated with the clinical history, epidemiological data, and other data available to the clinician evaluating the patient. Performance of the Xpert Xpress SARS-CoV-2/Flu/RSV or Xpert Xpress SARS-CoV-2 only test has only been established in nasopharyngeal swab specimens. Erroneous test results might occur from improper specimen collection; failure to follow the recommended sample collection, handling, and storage procedures; technical error; or sample mix-up.False negative results may occur if virus is present at levels below the analytical limit of detection. Viral nucleic acid may persist in vivo, independent of virus viability. Detection of analyte target(s) does not imply that the corresponding virus(es) are infectious or are the causative agents for clinical symptoms.Recent patient exposure to FluMist or other live attenuated influenza vaccines may cause inaccurate positive results. FDA Approved. PREGUon 10-20-2024 HCG ( test) Ql (U) Negative Normal [facility] Comment on above: Performed By: #### P REGU #### [address] [address] test (u) int Invalid Interpretation Code [facility] Comment on above: Result Comment: HCG not detected. Very dilute urine specimens, as indicated by a low specific gravity, may not contain termite control representative levels of hCG. If is still suspected, a first morning urine specimen should be collected 48 hours later and tested. Performed By: #### P REGU #### [facility] [address] [place] [id number] XR ABDOMEN APon 10-20-2024 XR ABDOMEN AP ORIGINAL EXAMINATION: ONE SUPINE XRAY VIEW(S) OF THE ABDOMEN10/20/2024 9:05 pm COMPARISON: None HISTORY: ORDERING SYSTEM PROVIDED HISTORY: Reason for Exam: possible rectal FB FINDINGS: Nonobstructive bowel gas pattern. Small to moderate colonic stool burden. Right upper quadrant surgical clips. No radiopaque foreign bodies visualized.. IMPRESSION: No visualized radiopaque foreign body. If persistent clinical concern, consider lateral pelvic radiograph or pelvic CT. I have personally reviewed the images of this examination and agree with the resident's findings and interpretation. Interpreted by: River Franks Preliminary Report By: Albert Sheikh Electronically signed By River Franks Dictated Date: 10/20/2024 9:09:56 PM Prelim Date: 10/20/2024 9:13:42 PM Sign Date: 10/20/2024 9:43:31 PM Ordering Provider: ARMIN HOOPER Interpreted by: River Franks Preliminary Report By: Albert Sheikh Electronically signed By River Franks Dictated Date: 10/20/2024 9:09:56 PM Prelim Date: 10/20/2024 9:13:42 PM Sign Date: 10/20/2024 9:43:31 PM Ordering Provider: ARMIN HOOPER Normal [facility] Bedside Glucoseon 10-13-2024 FINGERSTICK GLU 348 mg/dL High 74-106 [facility] Comment on above: Result Comment: DELLA COX OF PATIENT CARE PER NURSING PROTOCOL Performed By: #### L 501.080 ####[facility] [address] [place], [address] Emergency Department Summary on 10-13-2024 Emergency Department Summary Normal [facility] Glucose measurement at [facility] deOrdered By: Nate Conrad on 10-13-2024 Glucose [Mass/Vol] 348 mg/dL High 74-106 [facility] Comment on above: MANAGEMENT OF PATIEN T CARE PER NURSING PROTOCOL Urine Cultureon 10-09-2024 [facility] Urine Culture Yeast, not Nirmala albicans [place] Count 25,000-50,000 Normal [facility] Comment on above: Performed By: #### M 100.2200 ####[facility] [address] [place], [address] Absolute lymphocyte countOrd ered By: Pierce Singleton on 10-06-2024 Lymphocytes Auto (Unsp spec) [#/Vol] 1.50 10*3/uL 0.83-4.51 [facility] Absolute neutrophil countOrd ered By: Pierce Singleton on 10-06-2024 Neutrophils (Bld) [#/Vol] 2.7 10*3/uL 2.0-7.7 [facility] Anion gap in Serum or Plasma Ordered By: Pierce Singleton on 10-06-2024 Anion gap [Moles/Vol] 13 mmol/L 5-15 [facility] Automated lymphocyte count a s percentage of total leukocytesOrdered By: Pierce Singleton on 10-06-2024 Lymphocytes/100 WBC Auto (Unsp spec) 31.3 % 19-41 [facility] BUN/creatinine ratioOrdered By: Pierce Singleton on 10-06-2024 Urea nitrogen/Creatinine [Mass ratio] 27.3 mg/mg High 10-20 [facility] Basic Metabolic Profile (BMP )on 10-06-2024 Glucose [Mass/Vol] 497 mg/dL Invalid Interpretation Code 70-99 [facility] Comment on above: Result Comment: Crit ical Result(s) Called at: 0343 by:??BERE SMITH Results read back by same.Critical Result(s) Called at: 0343 by:??BERE SMITH Results read back by same.Critical Result(s) Called at: by:??Results read back bysame. AMENDED REPORT 10/06/24 1556 GLU previously reported as: 497 *H mg/dLCritical Result(s) Called at: 0343 by:??BERE SMITH Results read back by same. Performed By: #### L 100.0100, L501.6901, L500.2500 ####[facility] [address] [place], [address] Basophil percentageOrdered B y: Pierce Singleton on 10-06-2024 Basophils/100 WBC (Bld) 0.8 % 0-1 [facility] Bedside Glucoseon 10-06-2024 FINGERSTICK GLU 224 mg/dL High 74-106 [facility] Comment on above: Result Comment: DELLA GEMENT OF PATIENT CARE PER NURSING PROTOCOL Performed By: #### L 501.080 ####[facility] [address] [place], [address] FINGERSTICK GLU 265 mg/dL High -106 [facility] Comment on above: Result Comment: DELLA GEMENT OF PATIENT CARE PER NURSING PROTOCOL Performed By: #### L 501.080 ####[facility] [address] [place], [address] FINGERSTICK GLU 315 mg/dL High -106 [facility] Comment on above: Result Comment: DELLA GEMENT OF PATIENT CARE PER NURSING PROTOCOL Performed By: #### L 501.080 ####[facility] [address] [place], [address] FINGERSTICK GLU 442 mg/dL High -106 [facility] Comment on above: Result Comment: DELLA GEMENT OF PATIENT CARE PER NURSING PROTOCOL Performed By: #### L 501.080 ####[facility] [address] [place], [address] Beta-Hydroxbytyrateon 2024 BETA-HYDROXYBUT 0.1 mmol/L Normal 0.0-0.3 [facility] Comment on above: Performed By: #### L 100.0100, L501.6901, L500.2500 ####[facility] [address] [place], [address] Beta-hydroxybutyrateOrdered By: Pierce Singleton on 10-06-2024 Beta hydroxybutyrate [Mass/Vol] 0.1 mmol/L 0.0-0.3 [facility] Bilirubin Test strip Ql (U)O rdered By: Pierce Singleton on 10-06-2024 Bilirubin Ql (U) Negative Negative [facility] CBC W/Diff, Automatedon 09-14 Absolute Lymph 1.50 X10 3/uL Normal 0.83-4.51 [facility] Comment on above: Performed By: #### L 100.0100, L501.6901, L500.2500 ####[facility] [address] [place], [address] Absolute Neut 2.7 X10 3/uL Normal 2.0-7.7 [facility] Comment on above: Performed By: #### L 100.0100, L501.6901, L500.2500 ####[facility] [address] [place], [address] Basophils/100 WBC (Bld) 0.8 % Normal 0-1 [facility] Comment on above: Performed By: #### L 100.0100, L501.6901, L500.2500 ####[facility] [address] [place], [address] Eosinophils/100 WBC (Bld) 2.1 % Normal 0-5 [facility] Comment on above: Performed By: #### L 100.0100, L501.6901, L500.2500 ####[facility] [address] [place], [address] Erythrocyte distribution width (RBC) [Ratio] 12.6 % Normal 11.6-14.6 [facility] Comment on above: Performed By: #### L 100.0100, L501.6901, L500.2500 ####[facility] [address] [place], [address] Hematocrit (Bld) [Volume fraction] 40.2 % Normal 37-47 [facility] Comment on above: Performed By: #### L 100.0100, L501.6901, L500.2500 ####[facility] [address] [place], [address] Hemoglobin (Bld) [Mass/Vol] 13.9 g/dL Normal 12.0-15.0 [facility] Comment on above: Performed By: #### L 100.0100, L501.6901, L500.2500 ####[facility] [address] [place], [address] IG% 0.600 Normal 0.0-0.9 [facility] Comment on above: Result Comment: IG% - Immature Granulocytes (promyelocytes, myelocytes andmetamyelocytes) > 1% indicates that a LEFT SHIFT is Present. Performed By: #### L 100.0100, L501.6901, L500.2500 ####[facility] [address] [place], [address] Lymphocytes/100 WBC (Bld) 31.3 % Normal 19-41 [facility] Comment on above: Performed By: #### L 100.0100, L501.6901, L500.2500 ####[facility] [address] [place], [address] MCH (RBC) [Entitic mass] 28.4 pg Normal 27.0-32.0 [facility] Comment on above: Performed By: #### L 100.0100, L501.6901, L500.2500 ####[facility] [address] [place], [address] MCHC (RBC) [Mass/Vol] 34.6 g/dL Normal 32-36 [facility] Comment on above: Performed By: #### L 100.0100, L501.6901, L500.2500 ####[facility] [address] [place], [address] MCV (RBC) [Entitic vol] 82.0 fL Normal 81-99 [facility] Comment on above: Performed By: #### L 100.0100, L501.6901, L500.2500 ####[facility] [address] [place], [address] Monocytes/100 WBC (Bld) 9.0 % Normal 0-10 [facility] Comment on above: Performed By: #### L 100.0100, L501.6901, L500.2500 ####[facility] [address] [place], [address] Neutrophils/100 WBC (Bld) 56.2 % Normal 47-70 [facility] Comment on above: Performed By: #### L 100.0100, L501.6901, L500.2500 ####[facility] [address] [place], [address] Nucleated RBC (Bld) [#/Vol] 0 10*3/uL Normal 0-5 [facility] Comment on above: Performed By: #### L 100.0100, L501.6901, L500.2500 ####[facility] [address] [place], [address] Platelet mean volume (Bld) [Entitic vol] 10.6 fL Normal 6.2-12.0 [facility] Comment on above: Performed By: #### L 100.0100, L501.6901, L500.2500 ####[facility] [address] [place], [address] Platelets (Bld) [#/Vol] 129 10*3/uL Low 150-450 [facility] Comment on above: Performed By: #### L 100.0100, L501.6901, L500.2500 ####[facility] [address] [place], [address] RBC (Bld) [#/Vol] 4.90 10*6/uL Normal 4.2-5.4 [facility] Comment on above: Performed By: #### L 100.0100, [id number], L500.2500 ####[facility] [address] [place], [address] RDW SD 37.7 fl Normal 35.1-43.9 [facility] Comment on above: Performed By: #### L 100.0100, L501.6901, L500.2500 ####[facility] [address] [place], [address] WBC (Bld) [#/Vol] 4.8 10*3/uL Normal 4.4-11.0 [facility] Comment on above: Performed By: #### L 100.0100, L501.6901, L500.2500 ####[facility] [address] [place], [address] CO2 (BldV) [Moles/Vol]Ordere d By: Pierce Singleton on 10-06-2024 CO2 [Moles/Vol] 28 mmol/L 23-33 [facility] Carbon dioxide, total [Moles /volume] in Central venous bloodOrdered By: Pierce Singleton on 10-06-2024 CO2 [Moles/Vol] 22.5 mmol/L 21.0-32.0 [facility] Chest PA and Lateralon 10-06 Chest PA and Lateral Normal [facility] Chloride assayOrdered By: Ascencion Singleton on 10-06-2024 Chloride [Moles/Vol] 98 mmol/L 98-108 [facility] Emergency Department Summary on 10-06-2024 Emergency Department Summary Normal [facility] Eosinophil percentageOrdered By: Pierce Singleton on 10-06-2024 Eosinophils/100 WBC (Bld) 2.1 % 0-5 [facility] Erythrocyte distribution wid th ratioOrdered By: Pierce Singleton on 10-06-2024 Erythrocyte distribution width (RBC) [Ratio] 12.6 % 11.6-14.6 [facility] Erythrocyte distribution wid th standard deviationOrdered By: Pierce Singleton on 10-06-2024 Erythrocyte distribution width (RBC) [Ratio] 37.7 fl 35.1-43.9 [facility] Glomerular filtration rate ( GFR) estimation/1.73 sq m using serum, plasma, or whole bOrdered By: Pierce Singleton on 10-06-2024 GFR/1.73 sq M.predicted among non-blacks MDRD (S/P/Bld) [Vol rate/Area] 105 mL/min/{1.73_m2} >60 [facility] Comment on above: mL/min/1.73m2 CKD-EP I Creatinine Equation (2020) Glucose measurement at [facility] deOrdered By: Pierce Singleton on 10-06-2024 Glucose [Mass/Vol] 224 mg/dL High 74-106 [facility] Comment on above: MANAGEMENT OF PATIEN T CARE PER NURSING PROTOCOL Glucose [Mass/Vol] 265 mg/dL [place] [address]-106 [facility] Comment on above: MANAGEMENT OF PATIEN T CARE PER NURSING PROTOCOL Hematocrit Auto (Bld) [Volum e fraction]Ordered By: Pierce Singleton on 10-06-2024 Hematocrit (Bld) [Volume fraction] 40.2 % 37-47 [facility] Hemoglobin measurementOrdere d By: Pierce Singleton on 10-06-2024 Hemoglobin (Bld) [Mass/Vol] 13.9 g/dL 12.0-15.0 [facility] Immature granulocytes/100 WB C Auto (Bld)Ordered By: Pierce Singleton on 10-06-2024 Immature granulocytes/100 WBC (Bld) 0.600 % 0.0-0.9 [facility] Comment on above: IG% - Immature Granu locytes (promyelocytes, myelocytes and metamyelocytes) > 1% indicates that a LEFT SHIFT is Present. Ketones Test strip Ql (U)Ord ered By: Pierce Singleton on 10-06-2024 Ketones Ql (U) Negative Negative [facility] MCV (mean corpuscular volume ) determinationOrdered By: Pierce Singleton on 10-06-2024 MCV (RBC) [Entitic vol] 82.0 fL 81-99 [facility] Mean corpuscular hemoglobin (MCH) determinationOrdered By: Pierce Singleton on 10-06-2024 MCH (RBC) [Entitic mass] 28.4 pg 27.0-32.0 [facility] Mean corpuscular hemoglobin concentration (MCHC) determinationOrdered By: Pierce Singleton on 10-06-2024 MCHC (RBC) [Mass/Vol] 34.6 g/dL 32-36 [facility] Mean platelet volume determi nationOrdered By: Pierce Singleton on 10-06-2024 Platelet mean volume (Bld) [Entitic vol] 10.6 fL 6.2-12.0 [facility] Microscopic analysis of urin e for red blood cells (RBC)Ordered By: Pierce Sinlgeton on 10-06-2024 Microscopic analysis of urine for red blood cells (RBC) 0 SEEN /hpf 0-5 [facility] Monocyte percentageOrdered B y: Pierce Singleton on 10-06-2024 Monocytes/100 WBC (Bld) 9.0 % 0-10 [facility] Mucus LM Ql (Urine sed)Order ed By: Pierce Singleton on 10-06-2024 Mucus Ql (Urine sed) 0 SEEN /hpf [facility] Neutrophil percentageOrdered By: Pierce Singleton on 10-06-2024 Neutrophils/100 WBC (Bld) 56.2 % 47-70 [facility] Nitrite Test strip Ql (U)Ord ered By: Pierce Singleton on 10-06-2024 Nitrite Ql (U) Negative Negative [facility] No Panel InformationOrdered By: Pierce Singleton on 10-06-2024 Blood Gas Sample Site Not entered [facility] Blood Gas Specimen Type SUMAN [facility] Oxygen Delivery Device Not entered [facility] Nucleated red blood cell per centageOrdered By: Pierce Singleton on 10-06-2024 Nucleated RBC/100 WBC (Bld) [Ratio] 0 % 0-5 [facility] Platelet countOrdered By: Ascencion Singleton on 10-06-2024 Platelets (Bld) [#/Vol] 129 10*3/uL Low 150-450 [facility] Potassium measurement (mass/ volume)Ordered By: Pierce Singleton on 10-06-2024 Potassium (Unsp spec) [Mass/Vol] 3.8 mmol/L 3.3-5.1 [facility] Comment on above: Hemolysis present, R esults could be affected. Protein Test strip Ql (U)Ord ered By: Pierce Singleton on 10-06-2024 Protein Ql (U) 15 mg/dl High Negative [facility] RBC Auto (Bld) [#/Vol]Ordere d By: Pierce Singleton on 10-06-2024 RBC (Bld) [#/Vol] 4.90 10*6/uL 4.2-5.4 [facility] Serum creatinine measurement (mass/volume)Ordered By: Pierce Singleton on 10-06-2024 Creatinine [Mass/Vol] 0.64 mg/dL Low 0.70-1.20 [facility] Serum glucose measurement (m ass/volume)Ordered By: Pierce Singleton on 10-06-2024 Glucose [Mass/Vol] 497 mg/dL High 70-99 [facility] Comment on above: Critical Result(s) C alled at: 0343 by: BERE SMITH Results read back by same. Critical Result(s) Called at: 0343 by: BERE SMITH Results read back by same.Critical Result(s) Called at: by: Results read back by same.Previous reported result: 497 mg/dLEdited by: ARIELA on 10/06/24:0436 AMENDED REPORT 10/06/24 0436 GLU previously reported as: 497 *H mg/dL Critical Result(s) Called at: 0343 by: BERE SMITH Results read back by same. Serum or plasma calcium anna urement (mass/volume)Ordered By: Pierce Singleton on 10-06-2024 Calcium [Mass/Vol] 9.1 mg/dL 7.6-11.0 [facility] Serum or plasma urea nitroge n measurement (mass/volume)Ordered By: Pierce Singleton on 10-06-2024 Urea nitrogen [Mass/Vol] 18 mg/dL 4-19 [facility] Sodium levelOrdered By: Tony Singleton on 10-06-2024 Sodium [Moles/Vol] 133 mmol/L 133-145 [facility] Squamous epithelial cells de tection in urine sediment by light microscopyOrdered By: Pierce Singleton on 10-06-2024 Epithelial cells.squamous LM Ql (Urine sed) 5-10 SEEN /hpf 5-10 [facility] Urinalysis, Completeon 10-06 BACTERIA 1+ /hpf Normal None Seen [facility] Comment on above: Order Comment: BOZENA CTOR TO SPECIFY Performed By: #### L 400.0001 ####[facility] [address] [place] [address] EPI,SQUAMOUS 5-10 SEEN Normal 5-10 [facility] Comment on above: Order Comment: BOZENA CTOR TO SPECIFY Performed By: #### L 400.0001 ####[facility] [address] [place] [address] WBC 10-25 SEEN Normal 0-5 [facility] Comment on above: Order Comment: BOZENA CTOR TO SPECIFY Performed By: #### L 400.0001 ####[facility] [address] [place] [address] BILIRUBIN URINE Negative Normal Negative [facility] Comment on above: Order Comment: BOZENA CTOR TO SPECIFY Performed By: #### L 400.0001 ####[facility] [address] [place] [address] Clarity (U) Clear Normal Clear [facility] Comment on above: Order Comment: BOZENA CTOR TO SPECIFY Performed By: #### L 400.0001 ####[facility] [address] [place] [id number] Color (U) Straw Normal Yellow [facility] Comment on above: Order Comment: BOZENA CTOR TO SPECIFY Performed By: #### L 400.0001 ####[facility] [address] [place] [address] GLUCOSE, UR 1000 mg/dl Abnormal Normal [facility] Comment on above: Order Comment: BOZENA CTOR TO SPECIFY Performed By: #### L 400.0001 ####[facility] [address] [place], [address] KETONE UR Negative Normal Negative [facility] Comment on above: Order Comment: BOZENA CTOR TO SPECIFY Performed By: #### L 400.0001 ####[facility] [address] [place], [address] LEUK ESTERASE 25 /ul Abnormal Negative [facility] Comment on above: Order Comment: BOZENA CTOR TO SPECIFY Performed By: #### L 400.0001 ####[facility] [address] [place], [address] Nitrite Ql (U) Negative Normal Negative [facility] Comment on above: Order Comment: BOZENA CTOR TO SPECIFY Performed By: #### L 400.0001 ####[facility] [address] [place], [address] OCCULT BLOOD-UR 10 /ul Abnormal Negative [facility] Comment on above: Order Comment: BOZENA CTOR TO SPECIFY Performed By: #### L 400.0001 ####[facility] [address] [place], [address] pH UR 6.0 Normal 5.0 - 8.0 [facility] Comment on above: Order Comment: BOZENA CTOR TO SPECIFY Performed By: #### L 400.0001 ####[facility] [address] [place], [address] PROT DIPSTX 15 mg/dl Abnormal Negative [facility] Comment on above: Order Comment: BOZENA CTOR TO SPECIFY Performed By: #### L 400.0001 ####[facility] [address] [place], [address] SP.GR. DIPSTX 1.015 Normal 1.002-1.030 [facility] Comment on above: Order Comment: BOZENA CTOR TO SPECIFY Performed By: #### L 400.0001 ####[facility] [address] [place], [address] UROBILI Normal Normal Normal [facility] Comment on above: Order Comment: BOZENA CTOR TO SPECIFY Performed By: #### L 400.0001 ####[facility] [address] [place], [place], [address] Mucus Ql (Urine sed) 0 SEEN Normal [facility] Comment on above: Order Comment: BOZENA CTOR TO SPECIFY Performed By: #### L 400.0001 ####[facility] [address] [place], [place], [id number] RBC 0 SEEN Normal 0-5 [facility] Comment on above: Order Comment: BOZENA CTOR TO SPECIFY Performed By: #### L 400.0001 ####[facility] [address] [place], [place], [id number] Urine clarityOrdered By: Eden Singleton on 10-06-2024 Clarity (U) Clear Clear [facility] Urine color determinationOrd ered By: Pierce Singleton on 10-06-2024 Color (U) Straw Yellow [facility] Urine cultureOrdered By: Eden Singleton on 10-06-2024 Bacteria identified Cx Nom (U) Yeast, not Nirmala albicans Abnormal [facility] Urine glucose detectionOrder ed By: Pierce Singleton on 10-06-2024 Glucose Ql (U) 1000 mg/dl High Normal [facility] Urine leukocyte esterase det ection by dipstickOrdered By: Pierce Singleton on 10-06-2024 Leukocyte esterase Test strip Ql (U) 25 /ul High Negative [facility] Urine pHOrdered By: Pierce Singleton on 10-06-2024 pH (U) 6.0 [pH] 5.0 - 8.0 [facility] Urine sediment bacteria coun t by microscopy (number/high power field)Ordered By: Pierce Singleton on 10-06-2024 Bacteria LM.HPF (Urine sed) [#/Area] 1 /[HPF] None Seen [facility] Urine specific gravity measu rementOrdered By: Pierce Singleton on 10-06-2024 Specific gravity (U) [Rel density] 1.015 1.002-1.030 [facility] Urine urobilinogen measureme ntOrdered By: Pierce Singleton on 10-06-2024 Urobilinogen Ql (U) Normal mg/dl Normal [facility] Venous Blood Gason Blood Gas Type SUMAN Normal [facility] Comment on above: Performed By: #### L 9000.0810 ####[facility] [address] [place], [address] CO2 [Moles/Vol] 28 mmol/L Normal 23-33 [facility] Comment on above: Performed By: #### L 9000.0810 ####[facility] [address] [place], [address] HCO3 (Bld) [Moles/Vol] 27 mmol/L High 22-26 [facility] Comment on above: Performed By: #### L 9000.0810 ####[facility] [address] [place], [address] O2 Delivery Dev Not entered Normal [facility] Comment on above: Performed By: #### L 9000.0810 ####[facility] [address] [place], [address] SITE Not entered [facility] Comment on above: Performed By: #### L 9000.0810 ####[facility] [address] [place], [address] VBG BE 3 mmol/L Normal -1.0-3.5 [facility] Comment on above: Performed By: #### L 9000.0810 ####[facility] [address] [place], [address] VBG pCO2 41.9 mmHg Normal 41-51 [facility] Comment on above: Performed By: #### L 9000.0810 ####[facility] [address] [place], [address] VBG pH 7.42 Normal 7.32-7.42 [facility] Comment on above: Performed By: #### L 9000.0810 ####[facility] [address] [place], [place], [address] VBG PO2 45 mmHg High 25-40 [facility] Comment on above: Performed By: #### L 9000.0810 ####[facility] [address] [place], [place], [address] VBG SO2 82 High 50-70 [facility] Comment on above: Performed By: #### L 9000.0810 ####[facility] [address] [place], [place], [address] Venous blood base excess saeed surementOrdered By: Pierce Singleton on 10-06-2024 Base excess Calc (BldV) [Moles/Vol] 3 mmol/L -1.0-3.5 [facility] Venous blood bicarbonate saeed surementOrdered By: Pierce Singleton on 10-06-2024 HCO3 (Bld) [Moles/Vol] 27 mmol/L High 22-26 [facility] Venous blood oxygen saturati on measurementOrdered By: Pierce Singleton on 10-06-2024 Oxygen saturation in Blood 82 % High 50-70 [facility] Venous blood pH measurementO rdered By: Pierce Singleton on 10-06-2024 pH (BldV) 7.42 [pH] 7.32-7.42 [facility] Venous blood partial pressur e of carbon dioxide measurementOrdered By: Pierce Singleton on 10-06-2024 CO2 (BldV) [Partial pressure] 41.9 mm[Hg] 41-51 [facility] Venous blood partial pressur e of oxygen measurementOrdered By: Pierce Singleton on 10-06-2024 Oxygen (BldV) [Partial pressure] 45 mm[Hg] High 25-40 [facility] White blood cell (WBC) count Ordered By: Pierce Singleton on 10-06-2024 WBC (Bld) [#/Vol] 4.8 10*3/uL 4.4-11.0 [facility] White blood cell countOrdere d By: Pierce Singleton on 10-06-2024 White blood cell count 10-25 SEEN /hpf 0-5 [facility] 12 Lead EKGon 10-05-2024 12 Lead EKG Normal [facility] Emergency Department Summary on 10-01-2024 Emergency Department Summary Normal [facility] Urine Cultureon 09-02-2024 URC Below infection leve l. Mixed Gram Positive Organisms [place] Count 1000-10,000 MIXC Mixed contaminants. Submit a new specimen if indicated. Normal [facility] Comment on above: Performed By: #### M 100.2200 ####[facility] [address] [place], [address] 12 Lead EKGon 09-01-2024 12 Lead EKG Normal [facility] 12 Lead EKG Normal [facility] Absolute lymphocyte countOrd ered By: Chetna Sorensen on 09-01-2024 Lymphocytes Auto (Unsp spec) [#/Vol] 0.96 10*3/uL 0.83-4.51 [facility] Absolute neutrophil countOrd ered By: Chetna Sorensen on 09-01-2024 Neutrophils (Bld) [#/Vol] 2.7 10*3/uL 2.0-7.7 [facility] Amphetamine detection with 1 000 ng/mL as cutoffOrdered By: Chetna Sorensen on 09-01-2024 Amphetamines Screen method >1000 ng/mL Ql (U) Positive <1000 ng/mL [facility] Comment on above: If confirmation test ing is needed, a separate order will be required to send out testing to the reference laboratory. Amphetamines Screen method >1000 ng/mL Ql (U) Negative < 200 ng/mL [facility] Anion gap in Serum or Plasma Ordered By: Chetna Sorensen on 09-01-2024 Anion gap [Moles/Vol] 10 mmol/L - [facility] Automated lymphocyte count a s percentage of total leukocytesOrdered By: Chetna Sorensen on 09-01-2024 Lymphocytes/100 WBC Auto (Unsp spec) 22.1 % [facility] BUN/creatinine ratioOrdered By: Chetna Sorensen on 09-01-2024 Urea nitrogen/Creatinine [Mass ratio] 13.7 mg/mg - [facility] Basic Metabolic Profile (BMP )on 09-01-2024 BUN/CRE 13.7 RATIO Normal 02-01 [facility] Comment on above: Performed By: #### L 501.4021, L501.3620, L100.0100, L500.2500 ####[facility] [address] [place], [address] Calcium [Mass/Vol] 8.8 mg/dL Normal 7.6-11.0 [facility] Comment on above: Performed By: #### L 501.4021, L501.3620, L100.0100, L500.2500 ####[facility] [address] [place], [address] Chloride [Moles/Vol] 106 mmol/L Normal 98-108 [facility] Comment on above: Performed By: #### L 501.4021, L501.3620, L100.0100, L500.2500 ####[facility] [address] [place], [address] CO2 [Moles/Vol] 24.7 mmol/L Normal 21.0-32.0 [facility] Comment on above: Performed By: #### L 501.4021, L501.3620, L100.0100, L500.2500 ####[facility] [address] [place], [address] Creatinine [Mass/Vol] 0.50 mg/dL Low 0.70-1.20 [facility] Comment on above: Performed By: #### L 501.4021, L501.3620, L100.0100, L500.2500 ####[facility] [address] [place], [address] ECRCL 117.09 ml/min Normal 50-250 [facility] Comment on above: Performed By: #### L 501.4021, L501.3620, L100.0100, L500.2500 ####[facility] [address] [place], [address] GAP 10 Normal 5-15 [facility] Comment on above: Performed By: #### L 501.4021, L501.3620, L100.0100, L500.2500 ####[facility] [address] [place], [address] GFR/1.73 sq M.predicted among non-blacks MDRD (S/P/Bld) [Vol rate/Area] 112 mL/min/{1.73_m2} Normal >60 [facility] Comment on above: Result Comment: mL/m in/1.73m2 CKD-EPI Creatinine Equation (2020) Performed By: #### L 501.4021, L501.3620, L100.0100, L500.2500 ####[facility] [address] [place], [address] Glucose [Mass/Vol] 318 mg/dL High 70-99 [facility] Comment on above: Performed By: #### L 501.4021, L501.3620, L100.0100, L500.2500 ####[facility] [address] [place], [address] Potassium [Moles/Vol] 3.5 mmol/L Normal 3.3-5.1 [facility] Comment on above: Performed By: #### L 501.4021, L501.3620, L100.0100, L500.2500 ####[facility] [address] [place], [address] Sodium [Moles/Vol] 141 mmol/L Normal 133-145 [facility] Comment on above: Performed By: #### L 501.4021, L501.3620, L100.0100, L500.2500 ####[facility] [address] [place], [address] Urea nitrogen [Mass/Vol] 7 mg/dL Normal 4-19 [facility] Comment on above: Performed By: #### L 501.4021, L501.3620, L100.0100, L500.2500 ####[facility] [address] [place], [address] Basophil percentageOrdered B y: Chetna Sorensen on 09-01-2024 Basophils/100 WBC (Bld) 0.5 % 0-1 [facility] Bedside Glucoseon 09-01-2024 FINGERSTICK GLU 354 mg/dL High 74-106 [facility] Comment on above: Result Comment: DELLA GEMENT OF PATIENT CARE PER NURSING PROTOCOL Performed By: #### L 501.080 ####[facility] [address] [place], [address] FINGERSTICK GLU 365 mg/dL High 74-106 [facility] Comment on above: Result Comment: DELLA GEMENT OF PATIENT CARE PER NURSING PROTOCOL Performed By: #### L 501.080 ####[facility] [address] [place], [address] CBC W/Diff, Automatedon - 0 Absolute Lymph 0.96 X10 3/uL Normal 0.83-4.51 [facility] Comment on above: Performed By: #### L 501.4021, L501.3620, L100.0100, L500.2500 ####[facility] [address] [place], [address] Absolute Neut 2.7 X10 3/uL Normal 2.0-7.7 [facility] Comment on above: Performed By: #### L 501.4021, L501.3620, L100.0100, L500.2500 ####[facility] [address] [place], [address] Basophils/100 WBC (Bld) 0.5 % Normal 0-1 [facility] Comment on above: Performed By: #### L 501.4021, L501.3620, L100.0100, L500.2500 ####[facility] [address] [place], [address] Eosinophils/100 WBC (Bld) 3.5 % Normal 0-5 [facility] Comment on above: Performed By: #### L 501.4021, L501.3620, L100.0100, L500.2500 ####[facility] [address] [place], [address] Erythrocyte distribution width (RBC) [Ratio] 13.1 % Normal 11.6-14.6 [facility] Comment on above: Performed By: #### L 501.4021, L501.3620, L100.0100, L500.2500 ####[facility] [address] [place], [address] Hematocrit (Bld) [Volume fraction] 39.7 % Normal 37-47 [facility] Comment on above: Performed By: #### L 501.4021, L501.3620, L100.0100, L500.2500 ####[facility] [address] [place], [address] Hemoglobin (Bld) [Mass/Vol] 13.6 g/dL Normal 12.0-15.0 [facility] Comment on above: Performed By: #### L 501.4021, L501.3620, L100.0100, L500.2500 ####[facility] [address] [place], [address] IG% 0.500 Normal 0.0-0.9 [facility] Comment on above: Result Comment: IG% - Immature Granulocytes (promyelocytes, myelocytes andmetamyelocytes) > 1% indicates that a LEFT SHIFT is Present. Performed By: #### L 501.4021, L501.3620, L100.0100, L500.2500 ####[facility] [address] [place], [address] Lymphocytes/100 WBC (Bld) 22.1 % Normal 19-41 [facility] Comment on above: Performed By: #### L 501.4021, L501.3620, L100.0100, L500.2500 ####[facility] [address] [place], [address] MCH (RBC) [Entitic mass] 28.3 pg Normal 27.0-32.0 [facility] Comment on above: Performed By: #### L 501.4021, L501.3620, L100.0100, L500.2500 ####[facility] [address] [place], [address] MCHC (RBC) [Mass/Vol] 34.3 g/dL Normal 32-36 [facility] Comment on above: Performed By: #### L 501.4021, L501.3620, L100.0100, L500.2500 ####[facility] [address] [place], [address] MCV (RBC) [Entitic vol] 82.7 fL Normal 81-99 [facility] Comment on above: Performed By: #### L 501.4021, L501.3620, L100.0100, L500.2500 ####[facility] [address] [place], [address] Monocytes/100 WBC (Bld) 11.3 % High 0-10 [facility] Comment on above: Performed By: #### L 501.4021, L501.3620, L100.0100, L500.2500 ####[facility] [address] [place], [address] Neutrophils/100 WBC (Bld) 62.1 % Normal 47-70 [facility] Comment on above: Performed By: #### L 501.4021, L501.3620, L100.0100, L500.2500 ####[facility] [address] [place], [address] Nucleated RBC (Bld) [#/Vol] 0 10*3/uL Normal 0-5 [facility] Comment on above: Performed By: #### L 501.4021, L501.3620, L100.0100, L500.2500 ####[facility] [address] [place], [address] Platelet mean volume (Bld) [Entitic vol] 9.8 fL Normal 6.2-12.0 [facility] Comment on above: Performed By: #### L 501.4021, L501.3620, L100.0100, L500.2500 ####[facility] [address] [place], [address] Platelets (Bld) [#/Vol] 186 10*3/uL Normal 150-450 [facility] Comment on above: Performed By: #### L 501.4021, L501.3620, L100.0100, L500.2500 ####[facility] [address] [place], [address] RBC (Bld) [#/Vol] 4.80 10*6/uL Normal 4.2-5.4 [facility] Comment on above: Performed By: #### L 501.4021, L501.3620, L100.0100, L500.2500 ####[facility] [address] [place], [address] RDW SD 39.3 fl Normal 35.1-43.9 [facility] Comment on above: Performed By: #### L 501.4021, L501.3620, L100.0100, L500.2500 ####[facility] [address] [place], [address] WBC (Bld) [#/Vol] 4.3 10*3/uL Low 4.4-11.0 [facility] Comment on above: Performed By: #### L 501.4021, L501.3620, L100.0100, L500.2500 ####[facility] [address] [place], [address] CPK Total, Creatine Kinaseon 09-01-2024 CPK TOTAL 31 U/L Normal 24-195 [facility] Comment on above: Performed By: #### L 501.4021, L501.3620, L100.0100, L500.2500 ####[facility] [address] [place], [address] Carbon dioxide, total [Moles /volume] in Central venous bloodOrdered By: Chetna Sorensen on 09-01-2024 CO2 [Moles/Vol] 24.7 mmol/L 21.0-32.0 [facility] Chest PA and Lateralon 09-01 Chest PA and Lateral Normal [facility] Chloride assayOrdered By: Ronal Sorensen on 09-01-2024 Chloride [Moles/Vol] 106 mmol/L 98-108 [facility] Electrocardiogram reportOrde red By: Alec Casas on 09-01-2024 EKG study [facility] [address] [place] [address] 12 Lead EKG 08/31/24 1818 MR#: [id number] Acct: [id number] Name: ANA CRISTINA THOMAS Rep #[id number] [...] ECG Confirmed by ALEC CASAS MD ([id number]), business editor SYLVESTER BURCH ([id number]) on :28:51 PM Referred By: ES Confirmed By: ALEC CASAS MD 09/01/24 1328 Date _ Alec Casas MD CC: Dr. Chetna Sorensen, DO; No Primary Care Physician ~ Signed [facility] Other Emergency Department Summary on 09-01-2024 Emergency Department Summary Normal [facility] Eosinophil percentageOrdered By: Chetna Sorensen on 09-01-2024 Eosinophils/100 WBC (Bld) 3.5 % 0-5 [facility] Erythrocyte distribution wid th ratioOrdered By: Chetna Sorensen on 09-01-2024 Erythrocyte distribution width (RBC) [Ratio] 13.1 % 11.6-14.6 [facility] Erythrocyte distribution wid th standard deviationOrdered By: Chetna Sorensen on 09-01-2024 Erythrocyte distribution width (RBC) [Ratio] 39.3 fl 35.1-43.9 [facility] Glomerular filtration rate ( GFR) estimation/1.73 sq m using serum, plasma, or whole bOrdered By: Chetna Sorensen on 09-01-2024 GFR/1.73 sq M.predicted among non-blacks MDRD (S/P/Bld) [Vol rate/Area] 112 mL/min/{1.73_m2} >60 [facility] Comment on above: mL/min/1.73m2 CKD-EP I Creatinine Equation (2020) Glucose measurement at bedsi deOrdered By: Chetna Sorensen on 09-01-2024 Glucose [Mass/Vol] 354 mg/dL High 74-106 [facility] Comment on above: MANAGEMENT OF PATIEN T CARE PER NURSING PROTOCOL Hematocrit Auto (Bld) [Volum e fraction]Ordered By: Chetna Sorensen on 09-01-2024 Hematocrit (Bld) [Volume fraction] 39.7 % 37-47 [facility] Hemoglobin measurementOrdere d By: Chetna Sorensen on 09-01-2024 Hemoglobin (Bld) [Mass/Vol] 13.6 g/dL 12.0-15.0 [facility] Immature granulocytes/100 WB C Auto (Bld)Ordered By: Chetna Sorensen on 09-01-2024 Immature granulocytes/100 WBC (Bld) 0.500 % 0.0-0.9 [facility] Comment on above: IG% - Immature Granu locytes (promyelocytes, myelocytes and metamyelocytes) > 1% indicates that a LEFT SHIFT is Present. L499.0042on 09-01-2024 Trop T High Sen < 6 Normal <=14 [facility] Comment on above: Performed By: #### L 499.0042 ####[facility] [address] [place], [address] L499.0043on 09-01-2024 Trop T High Sen < 6 Normal <=14 [facility] Comment on above: Performed By: #### L 499.0043 ####[facility] [address] [place], [address] L501.4021on 09-01-2024 Trop T High Sen < 6 Normal <=14 [facility] Comment on above: Performed By: #### L 501.4021, L501.3620, L100.0100, L500.2500 ####[facility] [address] [place], [address] MCV (mean corpuscular volume ) determinationOrdered By: Chetna Sorensen on 09-01-2024 MCV (RBC) [Entitic vol] 82.7 fL 81-99 [facility] Mean corpuscular hemoglobin (MCH) determinationOrdered By: Chetna Sorensen on 09-01-2024 MCH (RBC) [Entitic mass] 28.3 pg 27.0-32.0 [facility] Mean corpuscular hemoglobin concentration (MCHC) determinationOrdered By: Chetna Sorensen on 09-01-2024 MCHC (RBC) [Mass/Vol] 34.3 g/dL 32-36 [facility] Mean platelet volume determi nationOrdered By: Chetna Sorensen on 09-01-2024 Platelet mean volume (Bld) [Entitic vol] 9.8 fL 6.2-12.0 [facility] Monocyte percentageOrdered B y: Chetna Sorensen on 09-01-2024 Monocytes/100 WBC (Bld) 11.3 % High 0-10 [facility] Neutrophil percentageOrdered By: Chetna Sorensen on 09-01-2024 Neutrophils/100 WBC (Bld) 62.1 % 47-70 [facility] No Panel InformationOrdered By: Chetna Sorensen on 09-01-2024 Urine Buprenorphine Qualitative Negative < 200 ng/mL [facility] Urine Oxycodone Screen Negative < 100 ng/mL [facility] Nucleated red blood cell per centageOrdered By: Chetna Sorensen on 09-01-2024 Nucleated RBC/100 WBC (Bld) [Ratio] 0 % 0-5 [facility] Platelet countOrdered By: Ronal Sorensen on 09-01-2024 Platelets (Bld) [#/Vol] 186 10*3/uL 150-450 [facility] Potassium measurement (mass/ volume)Ordered By: Chetna Sorensen on 09-01-2024 Potassium (Unsp spec) [Mass/Vol] 3.5 mmol/L 3.3-5.1 [facility] Quantitative urine opiates m easurementOrdered By: Chetna Sorensen on 09-01-2024 Opiates Ql (U) Negative < 300 ng/mL [facility] RBC Auto (Bld) [#/Vol]Ordere d By: Chetna Sorensen on 09-01-2024 RBC (Bld) [#/Vol] 4.80 10*6/uL 4.2-5.4 [facility] Screening urine fentanyl saeed surementOrdered By: Chetna Sorensen on 09-01-2024 fentaNYL Screen Ql (U) Negative [facility] Serum creatinine measurement (mass/volume)Ordered By: Chetna Sorensen on 09-01-2024 Creatinine [Mass/Vol] 0.50 mg/dL Low 0.70-1.20 [facility] Serum glucose measurement (m ass/volume)Ordered By: Chetna Sorensen on 09-01-2024 Glucose [Mass/Vol] 318 mg/dL High 70-99 [facility] Serum or plasma calcium anna urement (mass/volume)Ordered By: Chetna Sorensen on 09-01-2024 Calcium [Mass/Vol] 8.8 mg/dL 7.6-11.0 [facility] Serum or plasma creatine kin ase activityOrdered By: Chetna Sorensen on 09-01-2024 CK [Catalytic activity/Vol] 31 U/L 24-195 [facility] Serum or plasma urea nitroge n measurement (mass/volume)Ordered By: Chetna Sorensen on 09-01-2024 Urea nitrogen [Mass/Vol] 7 mg/dL 4-19 [facility] Sodium levelOrdered By: Dara Sorensen on 09-01-2024 Sodium [Moles/Vol] 141 mmol/L 133-145 [facility] Troponin T.cardiac [Mass/vol ume] in Serum or Plasma by High sensitivity methodOrdered By: Chetna Sorensen on 09-01-2024 Troponin T.cardiac High sensitivity method [Mass/Vol] < 6 ng/L <14 [facility] Troponin T.cardiac High sensitivity method [Mass/Vol] < 6 ng/L <14 [facility] Troponin T.cardiac High sensitivity method [Mass/Vol] < 6 ng/L <14 [facility] Urine Drug Screen (VISTA)on 09-01-2024 AMPHETAMINES Positive Normal <1000 ng/mL [facility] Comment on above: Result Comment: If c onfirmation testing is needed, a separate order will berequired to send out testing to the reference laboratory. Performed By: #### L 505.5000 ####[facility] [address] [place], [address] BARBITIURATES Negative Normal < 200 ng/mL [facility] Comment on above: Performed By: #### L 505.5000 ####[facility] [address] [place], [address] BENZODIAZIPINE Negative Normal < 200 ng/mL [facility] Comment on above: Performed By: #### L 505.5000 ####[facility] [address] [facility] [address] BUP Ur Drug Scr Negative Normal < 200 ng/mL [facility] Comment on above: Performed By: #### L 505.5000 ####[facility] [address] [place], [address] COCAINE Positive Normal < 300 ng/mL [facility] Comment on above: Result Comment: If c onfirmation testing is needed, a separate order will berequired to send out testing to the reference laboratory. Performed By: #### L 505.5000 ####[facility] [address] [facility] [address] Fentanyl Negative Normal [facility] Comment on above: Performed By: #### L 505.5000 ####[facility] [address] [facility] [address] METHADONE Negative Normal < 300 ng/mL [facility] Comment on above: Performed By: #### L 505.5000 ####[facility] [address] [facility] [address] OPIATES Negative Normal < 300 ng/mL [facility] Comment on above: Performed By: #### L 505.5000 ####[facility] [address] [facility] [address] OXYCODONE Negative Normal < 100 ng/mL [facility] Comment on above: Performed By: #### L 505.5000 ####[facility] [address] [facility] [address] PCP Negative Normal < 25 ng/mL [facility] Comment on above: Performed By: #### L 505.5000 ####[facility] [address] [facility] [address] THC Negative Normal < 50 ng/mL [facility] Comment on above: Performed By: #### L 505.5000 ####[facility] [address] [place], [address] Urine benzodiazepine levelOr dered By: Chetna Sorensen on 09-01-2024 Benzodiazepines Ql (U) Negative < 200 ng/mL [facility] Urine cocaine levelOrdered B y: Chetna Sorensen on 09-01-2024 Cocaine Ql (U) Positive < 300 ng/mL [facility] Comment on above: If confirmation test ing is needed, a separate order will be required to send out testing to the reference laboratory. Urine qgykq-4-wnphbfjprsouwm abinol (THC) measurementOrdered By: Chetna Sorensen on 09-01-2024 Cannabinoids Screen Ql (U) Negative < 50 ng/mL [facility] Urine phencyclidine (PCP) de tectionOrdered By: Chetna Sorensen on 09-01-2024 Phencyclidine Ql (U) Negative < 25 ng/mL [facility] White blood cell (WBC) count Ordered By: Chetna Sorensen on 09-01-2024 WBC (Bld) [#/Vol] 4.3 10*3/uL Low 4.4-11.0 [facility] Absolute lymphocyte countOrd ered By: Nate Conrad on 08-31-2024 Lymphocytes Auto (Unsp spec) [#/Vol] 1.26 10*3/uL 0.83-4.51 [facility] Absolute neutrophil countOrd ered By: Nate Conrad on 08-31-2024 Neutrophils (Bld) [#/Vol] 3.3 10*3/uL 2.0-7.7 [facility] Anion gap in Serum or Plasma Ordered By: Nate Conrad on 08-31-2024 Anion gap [Moles/Vol] 12 mmol/L 08-27 [facility] Automated lymphocyte count a s percentage of total leukocytesOrdered By: Nate Conrad on 08-31-2024 Lymphocytes/100 WBC Auto (Unsp spec) 24.2 % [facility] BUN/creatinine ratioOrdered By: Nate Conrad on 08-31-2024 Urea nitrogen/Creatinine [Mass ratio] 14.3 mg/mg 02-01 [facility] Basic Metabolic Profile (BMP )on 08-31-2024 BUN/CRE 14.3 RATIO Normal 02-01 [facility] Comment on above: Performed By: #### L 501.6901, L500.2500, L100.0100 ####[facility] [address] [place], [address] Calcium [Mass/Vol] 9.0 mg/dL Normal 7.6-11.0 [facility] Comment on above: Performed By: #### L 501.6901, L500.2500, L100.0100 ####[facility] [address] [place], [address] Chloride [Moles/Vol] 101 mmol/L Normal 98-108 [facility] Comment on above: Performed By: #### L 501.6901, L500.2500, L100.0100 ####[facility] [address] [place], [address] CO2 [Moles/Vol] 24.8 mmol/L Normal 21.0-32.0 [facility] Comment on above: Performed By: #### L 501.6901, L500.2500, L100.0100 ####[facility] [address] [place], [address] Creatinine [Mass/Vol] 0.52 mg/dL Low 0.70-1.20 [facility] Comment on above: Performed By: #### L 501.6901, L500.2500, L100.0100 ####[facility] [address] [place], [address] ECRCL 112.58 ml/min Normal 50-250 [facility] Comment on above: Performed By: #### L 501.6901, L500.2500, L100.0100 ####[facility] [address] [place], [address] GAP 12 Normal 5-15 [facility] Comment on above: Performed By: #### L 501.6901, L500.2500, L100.0100 ####[facility] [address] [place], [address] GFR/1.73 sq M.predicted among non-blacks MDRD (S/P/Bld) [Vol rate/Area] 111 mL/min/{1.73_m2} Normal >60 [facility] Comment on above: Result Comment: mL/m in/1.73m2 CKD-EPI Creatinine Equation (2020) Performed By: #### L 501.6901, L500.2500, L100.0100 ####[facility] [address] [place], [address] Glucose [Mass/Vol] 333 mg/dL High 70-99 [facility] Comment on above: Performed By: #### L 501.6901, L500.2500, L100.0100 ####[facility] [address] [place], [address] Potassium [Moles/Vol] 3.2 mmol/L Low 3.3-5.1 [facility] Comment on above: Performed By: #### L 501.6901, L500.2500, L100.0100 ####[facility] [address] [place], [address] Sodium [Moles/Vol] 138 mmol/L Normal 133-145 [facility] Comment on above: Performed By: #### L 501.6901, L500.2500, L100.0100 ####[facility] [address] [place], [address] Urea nitrogen [Mass/Vol] 7 mg/dL Normal 4-19 [facility] Comment on above: Performed By: #### L 501.6901, L500.2500, L100.0100 ####[facility] [address] [place], [address] Basophil percentageOrdered B y: Nate Conrad on 08-31-2024 Basophils/100 WBC (Bld) 0.8 % 0-1 [facility] Beta-Hydroxbytyrateon 2024 BETA-HYDROXYBUT 0.6 mmol/L Normal 0.0-0.3 [facility] Comment on above: Performed By: #### L 501.6901, L500.2500, L100.0100 ####[facility] [address] [place], [address] Beta-hydroxybutyrateOrdered By: Nate Conrad on 08-31-2024 Beta hydroxybutyrate [Mass/Vol] 0.6 mmol/L 0.0-0.3 [facility] Bilirubin Test strip Ql (U)O rdered By: Nate Conrad on 08-31-2024 Bilirubin Ql (U) Negative Negative [facility] CBC W/Diff, Automatedon 08-13 Absolute Lymph 1.26 X10 3/uL Normal 0.83-4.51 [facility] Comment on above: Performed By: #### L 501.6901, L500.2500, L100.0100 ####[facility] [address] [place], [address] Absolute Neut 3.3 X10 3/uL Normal 2.0-7.7 [facility] Comment on above: Performed By: #### L 501.6901, L500.2500, L100.0100 ####[facility] [address] [place], [address] Basophils/100 WBC (Bld) 0.8 % Normal 0-1 [facility] Comment on above: Performed By: #### L 501.6901, L500.2500, L100.0100 ####[facility] [address] [place], [address] Eosinophils/100 WBC (Bld) 2.7 % Normal 0-5 [facility] Comment on above: Performed By: #### L 501.6901, L500.2500, L100.0100 ####[facility] [address] [place], [address] Erythrocyte distribution width (RBC) [Ratio] 13.0 % Normal 11.6-14.6 [facility] Comment on above: Performed By: #### L 501.6901, L500.2500, L100.0100 ####[facility] [address] [place], [address] Hematocrit (Bld) [Volume fraction] 42.4 % Normal 37-47 [facility] Comment on above: Performed By: #### L 501.6901, L500.2500, L100.0100 ####[facility] [address] [place], [address] Hemoglobin (Bld) [Mass/Vol] 14.5 g/dL Normal 12.0-15.0 [facility] Comment on above: Performed By: #### L 501.6901, L500.2500, L100.0100 ####[facility] [address] [place], [address] IG% 0.400 Normal 0.0-0.9 [facility] Comment on above: Result Comment: IG% - Immature Granulocytes (promyelocytes, myelocytes andmetamyelocytes) > 1% indicates that a LEFT SHIFT is Present. Performed By: #### L 501.6901, L500.2500, L100.0100 ####[facility] [address] [place], [address] Lymphocytes/100 WBC (Bld) 24.2 % Normal 19-41 [facility] Comment on above: Performed By: #### L 501.6901, L500.2500, L100.0100 ####[facility] [address] [place], [address] MCH (RBC) [Entitic mass] 28.2 pg Normal 27.0-32.0 [facility] Comment on above: Performed By: #### L 501.6901, L500.2500, L100.0100 ####[facility] [address] [place], [address] MCHC (RBC) [Mass/Vol] 34.2 g/dL Normal 32-36 [facility] Comment on above: Performed By: #### L 501.6901, L500.2500, L100.0100 ####[facility] [address] [place], [address] MCV (RBC) [Entitic vol] 82.3 fL Normal 81-99 [facility] Comment on above: Performed By: #### L 501.6901, L500.2500, L100.0100 ####[facility] [address] [place], [address] Monocytes/100 WBC (Bld) 8.6 % Normal 0-10 [facility] Comment on above: Performed By: #### L 501.6901, L500.2500, L100.0100 ####[facility] [address] [place], [address] Neutrophils/100 WBC (Bld) 63.3 % Normal 47-70 [facility] Comment on above: Performed By: #### L 501.6901, L500.2500, L100.0100 ####[facility] [address] [place], [address] Nucleated RBC (Bld) [#/Vol] 0 10*3/uL Normal 0-5 [facility] Comment on above: Performed By: #### L 501.6901, L500.2500, L100.0100 ####[facility] [address] [place], [address] Platelet mean volume (Bld) [Entitic vol] 9.9 fL Normal 6.2-12.0 [facility] Comment on above: Performed By: #### L 501.6901, L500.2500, L100.0100 ####[facility] [address] [place], [address] Platelets (Bld) [#/Vol] 211 10*3/uL Normal 150-450 [facility] Comment on above: Performed By: #### L 501.6901, L500.2500, L100.0100 ####[facility] [address] [place], [address] RBC (Bld) [#/Vol] 5.15 10*6/uL Normal 4.2-5.4 [facility] Comment on above: Performed By: #### L 501.6901, L500.2500, L100.0100 ####[facility] [address] [place], [address] RDW SD 38.5 fl Normal 35.1-43.9 [facility] Comment on above: Performed By: #### L 501.6901, L500.2500, L100.0100 ####[facility] [address] [place], [address] WBC (Bld) [#/Vol] 5.2 10*3/uL Normal 4.4-11.0 [facility] Comment on above: Performed By: #### L 501.6901, L500.2500, L100.0100 ####[facility] [address] [place], [address] Carbon dioxide, total [Moles /volume] in Central venous bloodOrdered By: Nate Conrad on 08-31-2024 CO2 [Moles/Vol] 24.8 mmol/L 21.0-32.0 [facility] Chloride assayOrdered By: Shaquille Conrad on 08-31-2024 Chloride [Moles/Vol] 101 mmol/L 98-108 [facility] Emergency Department Summary on 08-31-2024 Emergency Department Summary Normal [facility] Eosinophil percentageOrdered By: Nate Conrad on 08-31-2024 Eosinophils/100 WBC (Bld) 2.7 % 0-5 [facility] Erythrocyte distribution wid th ratioOrdered By: Nate Conrad on 08-31-2024 Erythrocyte distribution width (RBC) [Ratio] 13.0 % 11.6-14.6 [facility] Erythrocyte distribution wid th standard deviationOrdered By: Nate Conrad on 08-31-2024 Erythrocyte distribution width (RBC) [Ratio] 38.5 fl 35.1-43.9 [facility] Glomerular filtration rate ( GFR) estimation/1.73 sq m using serum, plasma, or whole bOrdered By: Nate Conrad on 08-31-2024 GFR/1.73 sq M.predicted among non-blacks MDRD (S/P/Bld) [Vol rate/Area] 111 mL/min/{1.73_m2} >60 [facility] Comment on above: mL/min/1.73m2 CKD-EP I Creatinine Equation (2020) Hematocrit Auto (Bld) [Volum e fraction]Ordered By: Nate Conrad on 08-31-2024 Hematocrit (Bld) [Volume fraction] 42.4 % 37-47 [facility] Hemoglobin measurementOrdere d By: Nate Conrad on 08-31-2024 Hemoglobin (Bld) [Mass/Vol] 14.5 g/dL 12.0-15.0 [facility] Immature granulocytes/100 WB C Auto (Bld)Ordered By: Nate Conrad on 08-31-2024 Immature granulocytes/100 WBC (Bld) 0.400 % 0.0-0.9 [facility] Comment on above: IG% - Immature Granu locytes (promyelocytes, myelocytes and metamyelocytes) > 1% indicates that a LEFT SHIFT is Present. Ketones Test strip Ql (U)Ord ered By: Nate Conrad on 08-31-2024 Ketones Ql (U) 15 mg/dl High Negative [facility] MCV (mean corpuscular volume ) determinationOrdered By: Nate Conrad on 08-31-2024 MCV (RBC) [Entitic vol] 82.3 fL 81-99 [facility] Mean corpuscular hemoglobin (MCH) determinationOrdered By: Nate Conrad on 08-31-2024 MCH (RBC) [Entitic mass] 28.2 pg 27.0-32.0 [facility] Mean corpuscular hemoglobin concentration (MCHC) determinationOrdered By: Nate Conrad on 08-31-2024 MCHC (RBC) [Mass/Vol] 34.2 g/dL 32-36 [facility] Mean platelet volume determi nationOrdered By: Nate Conrad on 08-31-2024 Platelet mean volume (Bld) [Entitic vol] 9.9 fL 6.2-12.0 [facility] Microscopic analysis of urin e for red blood cells (RBC)Ordered By: Nate Conrad on 08-31-2024 Microscopic analysis of urine for red blood cells (RBC) 10-25 SEEN /hpf 0-5 [facility] Monocyte percentageOrdered B y: Nate Conrad on 08-31-2024 Monocytes/100 WBC (Bld) 8.6 % 0-10 [facility] Mucus LM Ql (Urine sed)Order ed By: Nate Conrad on 08-31-2024 Mucus Ql (Urine sed) 0 SEEN /hpf [facility] Neutrophil percentageOrdered By: Nate Conrad on 08-31-2024 Neutrophils/100 WBC (Bld) 63.3 % 47-70 [facility] Nitrite Test strip Ql (U)Ord ered By: Nate Conrad on 08-31-2024 Nitrite Ql (U) Negative Negative [facility] Nucleated red blood cell per centageOrdered By: Nate Conrad on 08-31-2024 Nucleated RBC/100 WBC (Bld) [Ratio] 0 % 0-5 [facility] Platelet countOrdered By: Shaquille Conrad on 08-31-2024 Platelets (Bld) [#/Vol] 211 10*3/uL 150-450 [facility] Potassium measurement (mass/ volume)Ordered By: Nate Conrad on 08-31-2024 Potassium (Unsp spec) [Mass/Vol] 3.2 mmol/L Low 3.3-5.1 [facility] Protein Test strip Ql (U)Ord ered By: Nate Conrad on 08-31-2024 Protein Ql (U) 15 mg/dl High Negative [facility] RBC Auto (Bld) [#/Vol]Ordere d By: Nate Conrad on 08-31-2024 RBC (Bld) [#/Vol] 5.15 10*6/uL 4.2-5.4 [facility] Serum creatinine measurement (mass/volume)Ordered By: Nate Conrad on 08-31-2024 Creatinine [Mass/Vol] 0.52 mg/dL Low 0.70-1.20 [facility] Serum glucose measurement (m ass/volume)Ordered By: Nate Conrad on 08-31-2024 Glucose [Mass/Vol] 333 mg/dL High 70-99 [facility] Serum or plasma calcium anna urement (mass/volume)Ordered By: Nate Conrad on 08-31-2024 Calcium [Mass/Vol] 9.0 mg/dL 7.6-11.0 [facility] Serum or plasma urea nitroge n measurement (mass/volume)Ordered By: Nate Conrad on 08-31-2024 Urea nitrogen [Mass/Vol] 7 mg/dL 4- [facility] Sodium levelOrdered By: Nate Conrad on 08-31-2024 Sodium [Moles/Vol] 138 mmol/L 133-145 [facility] Squamous epithelial cells de tection in urine sediment by light microscopyOrdered By: Nate Conrad on 08-31-2024 Epithelial cells.squamous LM Ql (Urine sed) 0 SEEN /hpf - [facility] Urinalysis, Completeon 08-31 BACTERIA 1+ /hpf Normal None Seen [facility] Comment on above: Order Comment: CLEAN CATCH Performed By: #### L 400.0001 ####[facility] [address] [place], [address] RBC 10-25 SEEN Normal 0-5 [facility] Comment on above: Order Comment: CLEAN CATCH Performed By: #### L 400.0001 ####[facility] [address] [place], [address] WBC 10-25 SEEN Normal 0-5 [facility] Comment on above: Order Comment: CLEAN CATCH Performed By: #### L 400.0001 ####[facility] [address] [place], [address] EPI,SQUAMOUS 0 SEEN Normal -10 [facility] Comment on above: Order Comment: CLEAN CATCH Performed By: #### L 400.0001 ####[facility] [address] [place], [address] Mucus Ql (Urine sed) 0 SEEN Normal [facility] Comment on above: Order Comment: CLEAN CATCH Performed By: #### L 400.0001 ####[facility] [address] [place], [address] Urine clarityOrdered By: Jad Conrad on 08-31-2024 Clarity (U) Cloudy Clear [facility] Urine color determinationOrd ered By: Nate Conrad on 08-31-2024 Color (U) Yellow Yellow [facility] Urine cultureOrdered By: Jad Conrad on 08-31-2024 Bacteria identified Cx Nom (U) Positive Abnormal [facility] Urine glucose detectionOrder ed By: Nate Conrad on 08-31-2024 Glucose Ql (U) 1000 mg/dl High Normal [facility] Urine leukocyte esterase det ection by dipstickOrdered By: Nate Conrad on 08-31-2024 Leukocyte esterase Test strip Ql (U) 100 /ul High Negative [facility] Urine pHOrdered By: Nate Yo ghgermania on 08-31-2024 pH (U) 6.0 [pH] 5.0 - 8.0 [facility] Urine sediment bacteria coun t by microscopy (number/high power field)Ordered By: Nate Conrad on 08-31-2024 Bacteria LM.HPF (Urine sed) [#/Area] 1 /[HPF] None Seen [facility] Urine specific gravity measu rementOrdered By: Nate Conrad on 08-31-2024 Specific gravity (U) [Rel density] 1.015 1.002-1.030 [facility] Urine urobilinogen measureme ntOrdered By: Nate Conrad on 08-31-2024 Urobilinogen Ql (U) 1 mg/dl High Normal [facility] White blood cell (WBC) count Ordered By: Nate Conrad on 08-31-2024 WBC (Bld) [#/Vol] 5.2 10*3/uL 4.4-11.0 [facility] White blood cell countOrdere d By: Nate Conrad on 08-31-2024 White blood cell count 10-25 SEEN /hpf 0-5 [facility] Urine Cultureon 08-30-2024 URC Mixed Gram Pos Gram Neg Org [place] Count 25,000-50,000 MIXC Mixed contaminants. Submit a new specimen if indicated. Normal [facility] Comment on above: Performed By: #### M 100.2200 ####[facility] [address] [place], [address] Absolute lymphocyte countOrd ered By: Monisha Doe on 08-29-2024 Lymphocytes Auto (Unsp spec) [#/Vol] 1.32 10*3/uL 0.83-4.51 [facility] Absolute neutrophil countOrd ered By: Monisha Doe on 08-29-2024 Neutrophils (Bld) [#/Vol] 3.6 10*3/uL 2.0-7.7 [facility] Anion gap in Serum or Plasma Ordered By: Monisha Doe on 08-29-2024 Anion gap [Moles/Vol] 12 mmol/L - [facility] Automated lymphocyte count a s percentage of total leukocytesOrdered By: Monisha Doe on 08-29-2024 Lymphocytes/100 WBC Auto (Unsp spec) 23.2 % - [facility] BUN/creatinine ratioOrdered By: Monisha oDe on 08-29-2024 Urea nitrogen/Creatinine [Mass ratio] 17.3 mg/mg - [facility] Basic Metabolic Profile (BMP )on 08-29-2024 BUN/CRE 17.3 RATIO Normal - [facility] Comment on above: Performed By: #### L 500.2500, L501.6901 ####[facility] [address] [place], [address] Calcium [Mass/Vol] 9.2 mg/dL Normal 7.6-11.0 [facility] Comment on above: Performed By: #### L 500.2500, L501.6901 ####[facility] [address] [place], [address] Chloride [Moles/Vol] 102 mmol/L Normal 98-108 [facility] Comment on above: Performed By: #### L 500.2500, L501.6901 ####[facility] [address] [place], [address] CO2 [Moles/Vol] 24.5 mmol/L Normal 21.0-32.0 [facility] Comment on above: Performed By: #### L 500.2500, L501.6901 ####[facility] [address] [place], [address] Creatinine [Mass/Vol] 0.63 mg/dL Low 0.70-1.20 [facility] Comment on above: Performed By: #### L 500.2500, L501.6901 ####[facility] [address] [place], [address] ECRCL 100.82 ml/min Normal 50-250 [facility] Comment on above: Performed By: #### L 500.2500, L501.6901 ####[facility] [address] [place], [address] GAP 12 Normal 5-15 [facility] Comment on above: Performed By: #### L 500.2500, L501.6901 ####[facility] [address] [place], [address] GFR/1.73 sq M.predicted among non-blacks MDRD (S/P/Bld) [Vol rate/Area] 106 mL/min/{1.73_m2} Normal >60 [facility] Comment on above: Result Comment: mL/m in/1.73m2 CKD-EPI Creatinine Equation (2020) Performed By: #### L 500.2500, L501.6901 ####[facility] [address] [place], [address] Glucose [Mass/Vol] 332 mg/dL High 70-99 [facility] Comment on above: Performed By: #### L 500.2500, L501.6901 ####[facility] [address] [place] [place], [address] Potassium [Moles/Vol] 3.4 mmol/L Normal 3.3-5.1 [facility] Comment on above: Result Comment: Hemo lysis present, Results??could be affected.?? Performed By: #### L 500.2500, L501.6901 ####[facility] [address] [place], [address] Sodium [Moles/Vol] 139 mmol/L Normal 133-145 [facility] Comment on above: Performed By: #### L 500.2500, L501.6901 ####[facility] [address] [place], [address] Urea nitrogen [Mass/Vol] 11 mg/dL Normal 4-19 [facility] Comment on above: Performed By: #### L 500.2500, L501.6901 ####[facility] [address] [place], [address] Basophil percentageOrdered B y: Monisha Doe on 08-29-2024 Basophils/100 WBC (Bld) 0.7 % 0-1 [facility] Bedside Glucoseon 08-29-2024 FINGERSTICK GLU 317 mg/dL High 74-106 [facility] Comment on above: Result Comment: DELLA COX OF PATIENT CARE PER NURSING PROTOCOL Performed By: #### L 501.080 ####[facility] [address] [place], [address] Beta-Hydroxbytyrateon 2024 BETA-HYDROXYBUT 0.6 mmol/L Normal 0.0-0.3 [facility] Comment on above: Performed By: #### L 500.2500, L501.6901 ####[facility] [address] [place], [address] Beta-hydroxybutyrateOrdered By: Monisha Doe on 08-29-2024 Beta hydroxybutyrate [Mass/Vol] 0.6 mmol/L 0.0-0.3 [facility] Bilirubin Test strip Ql (U)O rdered By: Monisha Doe on 08-29-2024 Bilirubin Ql (U) Negative Negative [facility] CBC W/Diff, Automatedon 08-13 Absolute Lymph 1.32 X10 3/uL Normal 0.83-4.51 [facility] Comment on above: Performed By: #### L 100.0100 ####[facility] [address] [place], [address] Absolute Neut 3.6 X10 3/uL Normal 2.0-7.7 [facility] Comment on above: Performed By: #### L 100.0100 ####[facility] [address] [place], [address] Basophils/100 WBC (Bld) 0.7 % Normal 0-1 [facility] Comment on above: Performed By: #### L 100.0100 ####[facility] [address] [place], [address] Eosinophils/100 WBC (Bld) 3.7 % Normal 0-5 [facility] Comment on above: Performed By: #### L 100.0100 ####[facility] [address] [place], [address] Erythrocyte distribution width (RBC) [Ratio] 12.7 % Normal 11.6-14.6 [facility] Comment on above: Performed By: #### L 100.0100 ####[facility] [address] [place], [address] Hematocrit (Bld) [Volume fraction] 43.6 % Normal 37-47 [facility] Comment on above: Performed By: #### L 100.0100 ####[facility] [address] [place], [address] Hemoglobin (Bld) [Mass/Vol] 15.0 g/dL Normal 12.0-15.0 [facility] Comment on above: Performed By: #### L 100.0100 ####[facility] [address] [place], [address] IG% 0.400 Normal 0.0-0.9 [facility] Comment on above: Result Comment: IG% - Immature Granulocytes (promyelocytes, myelocytes andmetamyelocytes) > 1% indicates that a LEFT SHIFT is Present. Performed By: #### L 100.0100 ####[facility] [address] [place], [address] Lymphocytes/100 WBC (Bld) 23.2 % Normal 19-41 [facility] Comment on above: Performed By: #### L 100.0100 ####[facility] [address] [place], [address] MCH (RBC) [Entitic mass] 28.5 pg Normal 27.0-32.0 [facility] Comment on above: Performed By: #### L 100.0100 ####[facility] [address] [place], [address] MCHC (RBC) [Mass/Vol] 34.4 g/dL Normal 32-36 [facility] Comment on above: Performed By: #### L 100.0100 ####[facility] [address] [place], [address] MCV (RBC) [Entitic vol] 82.9 fL Normal 81-99 [facility] Comment on above: Performed By: #### L 100.0100 ####[facility] [address] [place], [address] Monocytes/100 WBC (Bld) 8.1 % Normal 0-10 [facility] Comment on above: Performed By: #### L 100.0100 ####[facility] [address] [place], [address] Neutrophils/100 WBC (Bld) 63.9 % Normal 47-70 [facility] Comment on above: Performed By: #### L 100.0100 ####[facility] [address] [place], [address] Nucleated RBC (Bld) [#/Vol] 0 10*3/uL Normal 0-5 [facility] Comment on above: Performed By: #### L 100.0100 ####[facility] [address] [place], [address] Platelet mean volume (Bld) [Entitic vol] 11.7 fL Normal 6.2-12.0 [facility] Comment on above: Performed By: #### L 100.0100 ####[facility] [address] [place], [address] Platelets (Bld) [#/Vol] 179 10*3/uL Normal 150-450 [facility] Comment on above: Performed By: #### L 100.0100 ####[facility] [address] [place], [address] RBC (Bld) [#/Vol] 5.26 10*6/uL Normal 4.2-5.4 [facility] Comment on above: Performed By: #### L 100.0100 ####[facility] [address] [place], [address] RDW SD 38.2 fl Normal 35.1-43.9 [facility] Comment on above: Performed By: #### L 100.0100 ####[facility] [address] [place], [address] WBC (Bld) [#/Vol] 5.7 10*3/uL Normal 4.4-11.0 [facility] Comment on above: Performed By: #### L 100.0100 ####[facility] [address] [place], [address] Carbon dioxide, total [Moles /volume] in Central venous bloodOrdered By: Monisha Doe on 08-29-2024 CO2 [Moles/Vol] 24.5 mmol/L 21.0-32.0 [facility] Chest PA and Lateralon 08-29 Chest PA and Lateral Normal [facility] Chloride assayOrdered By: Eva Doe on 08-29-2024 Chloride [Moles/Vol] 102 mmol/L 98-108 [facility] Emergency Department Summary on 08-29-2024 Emergency Department Summary Normal [facility] Eosinophil percentageOrdered By: Monisha Doe on 08-29-2024 Eosinophils/100 WBC (Bld) 3.7 % 0-5 [facility] Erythrocyte distribution wid th ratioOrdered By: Monisha Doe on 08-29-2024 Erythrocyte distribution width (RBC) [Ratio] 12.7 % 11.6-14.6 [facility] Erythrocyte distribution wid th standard deviationOrdered By: Monisha Doe on 08-29-2024 Erythrocyte distribution width (RBC) [Ratio] 38.2 fl 35.1-43.9 [facility] Glomerular filtration rate ( GFR) estimation/1.73 sq m using serum, plasma, or whole bOrdered By: Monisha Doe on 08-29-2024 GFR/1.73 sq M.predicted among non-blacks MDRD (S/P/Bld) [Vol rate/Area] 106 mL/min/{1.73_m2} >60 [facility] Comment on above: mL/min/1.73m2 CKD-EP I Creatinine Equation (2020) Glucose measurement at bedsi deOrdered By: Beau Gonzalez on 08-29-2024 Glucose [Mass/Vol] 317 mg/dL High 74-106 [facility] Comment on above: MANAGEMENT OF PATIEN T CARE PER NURSING PROTOCOL Hematocrit Auto (Bld) [Volum e fraction]Ordered By: Monisha Doe on 08-29-2024 Hematocrit (Bld) [Volume fraction] 43.6 % 37-47 [facility] Hemoglobin measurementOrdere d By: Monisha Doe on 08-29-2024 Hemoglobin (Bld) [Mass/Vol] 15.0 g/dL 12.0-15.0 [facility] Immature granulocytes/100 WB C Auto (Bld)Ordered By: Monisha Doe on 08-29-2024 Immature granulocytes/100 WBC (Bld) 0.400 % 0.0-0.9 [facility] Comment on above: IG% - Immature Granu locytes (promyelocytes, myelocytes and metamyelocytes) > 1% indicates that a LEFT SHIFT is Present. Ketones Test strip Ql (U)Ord ered By: Monisha Doe on 08-29-2024 Ketones Ql (U) Negative Negative [facility] MCV (mean corpuscular volume ) determinationOrdered By: Monisha Doe on 08-29-2024 MCV (RBC) [Entitic vol] 82.9 fL 81-99 [facility] Mean corpuscular hemoglobin (MCH) determinationOrdered By: Monisha Doe on 08-29-2024 MCH (RBC) [Entitic mass] 28.5 pg 27.0-32.0 [facility] Mean corpuscular hemoglobin concentration (MCHC) determinationOrdered By: Monisha Doe on 08-29-2024 MCHC (RBC) [Mass/Vol] 34.4 g/dL 32-36 [facility] Mean platelet volume determi nationOrdered By: Monisha Doe on 08-29-2024 Platelet mean volume (Bld) [Entitic vol] 11.7 fL 6.2-12.0 [facility] Microscopic analysis of urin e for red blood cells (RBC)Ordered By: Monisha Doe on 08-29-2024 Microscopic analysis of urine for red blood cells (RBC) 0-5 SEEN /hpf 0-5 [facility] Monocyte percentageOrdered B y: Monisha Doe on 08-29-2024 Monocytes/100 WBC (Bld) 8.1 % 0-10 [facility] Mucus LM Ql (Urine sed)Order ed By: Monisha Doe on 08-29-2024 Mucus Ql (Urine sed) 0 SEEN /hpf [facility] Neutrophil percentageOrdered By: Monisha Doe on 08-29-2024 Neutrophils/100 WBC (Bld) 63.9 % 47-70 [facility] Nitrite Test strip Ql (U)Ord ered By: Monisha Doe on 08-29-2024 Nitrite Ql (U) Negative Negative [facility] Nucleated red blood cell per centageOrdered By: Monisha Doe on 08-29-2024 Nucleated RBC/100 WBC (Bld) [Ratio] 0 % 0-5 [facility] Platelet countOrdered By: Eva Doe on 08-29-2024 Platelets (Bld) [#/Vol] 179 10*3/uL 150-450 [facility] Potassium measurement (mass/ volume)Ordered By: Monisha Doe on 08-29-2024 Potassium (Unsp spec) [Mass/Vol] 3.4 mmol/L 3.3-5.1 [facility] Comment on above: Hemolysis present, R esults could be affected. Protein Test strip Ql (U)Ord ered By: Monisha Doe on 08-29-2024 Protein Ql (U) 15 mg/dl High Negative [facility] RBC Auto (Bld) [#/Vol]Ordere d By: Monisha Doe on 08-29-2024 RBC (Bld) [#/Vol] 5.26 10*6/uL 4.2-5.4 [facility] Serum creatinine measurement (mass/volume)Ordered By: Monisha Doe on 08-29-2024 Creatinine [Mass/Vol] 0.63 mg/dL Low 0.70-1.20 [facility] Serum glucose measurement (m ass/volume)Ordered By: Monisha Doe on 08-29-2024 Glucose [Mass/Vol] 332 mg/dL High 70-99 [facility] Serum or plasma calcium anna urement (mass/volume)Ordered By: Monisha Doe on 08-29-2024 Calcium [Mass/Vol] 9.2 mg/dL 7.6-11.0 [facility] Serum or plasma urea nitroge n measurement (mass/volume)Ordered By: Monisha Doe on 08-29-2024 Urea nitrogen [Mass/Vol] 11 mg/dL 4-19 [facility] Sodium levelOrdered By: Serge Doe on 08-29-2024 Sodium [Moles/Vol] 139 mmol/L 133-145 [facility] Squamous epithelial cells de tection in urine sediment by light microscopyOrdered By: Monisha Doe on 08-29-2024 Epithelial cells.squamous LM Ql (Urine sed) 25-50 SEEN /hpf 5-10 [facility] Urinalysis, Completeon 08-29 BACTERIA 2+ /hpf Normal None Seen [facility] Comment on above: Order Comment: CLEAN CATCH Performed By: #### L 400.0001 ####[facility] [address] [place], [address] YEAST 1+ /hpf Normal None Seen [facility] Comment on above: Order Comment: CLEAN CATCH Performed By: #### L 400.0001 ####[facility] [address] [place], [address] EPI,SQUAMOUS 25-50 SEEN Normal 5-10 [facility] Comment on above: Order Comment: CLEAN CATCH Performed By: #### L 400.0001 ####[facility] [address] [place], [address] RBC 0-5 SEEN Normal 0-5 [facility] Comment on above: Order Comment: CLEAN CATCH Performed By: #### L 400.0001 ####[facility] [address] [place], [address] WBC 25-50 SEEN Normal 0-5 [facility] Comment on above: Order Comment: CLEAN CATCH Performed By: #### L 400.0001 ####[facility] [address] [place], [address] Mucus Ql (Urine sed) 0 SEEN Normal [facility] Comment on above: Order Comment: CLEAN CATCH Performed By: #### L 400.0001 ####[facility] [address] [place], [address] Urine clarityOrdered By: Michael Doe on 08-29-2024 Clarity (U) Cloudy Clear [facility] Urine color determinationOrd ered By: Monisha Doe on 08-29-2024 Color (U) Yellow Yellow [facility] Urine cultureOrdered By: Hugh Gonzalez on 08-29-2024 Bacteria identified Cx Nom (U) Mixed Gram Pos & Gram Neg Org Abnormal [facility] Urine glucose detectionOrder ed By: Monisha Doe on 08-29-2024 Glucose Ql (U) 1000 mg/dl High Normal [facility] Urine leukocyte esterase det ection by dipstickOrdered By: Monisha Doe on 08-29-2024 Leukocyte esterase Test strip Ql (U) 500 /ul High Negative [facility] Urine pHOrdered By: Jackie Doe on 08-29-2024 pH (U) 6.0 [pH] 5.0 - 8.0 [facility] Urine sediment bacteria coun t by microscopy (number/high power field)Ordered By: Monisha Doe on 08-29-2024 Bacteria LM.HPF (Urine sed) [#/Area] 2 /[HPF] None Seen [facility] Urine sediment yeast count b y microscopy (number/high powered field)Ordered By: Monisha Doe on 08-29-2024 Yeast LM.HPF (Urine sed) [#/Area] 1 /[HPF] None Seen [facility] Urine specific gravity measu rementOrdered By: Monisha Doe on 08-29-2024 Specific gravity (U) [Rel density] 1.010 1.002-1.030 [facility] Urine urobilinogen measureme ntOrdered By: Monisha Doe on 08-29-2024 Urobilinogen Ql (U) Normal mg/dl Normal [facility] White blood cell (WBC) count Ordered By: Monisha Doe on 08-29-2024 WBC (Bld) [#/Vol] 5.7 10*3/uL 4.4-11.0 [facility] White blood cell countOrdere d By: Monisha Doe on 08-29-2024 White blood cell count 25-50 SEEN /hpf 0-5 [facility] ECG 12 leadOrdered By: Josiah Bustillos on 08-17-2024 Atrial Rate 138 BPM [facility] Work Phone: P [place] 47 degrees [facility] Work Phone: P Offset 200 ms [facility] Work Phone: P Onset 151 ms [facility] Work Phone: [phone] AR Interval 146 ms [facility] Work Phone: [phone] Q Onset 224 ms [facility] Work Phone: [phone] QRS Count 23 beats [facility] Work Phone: [phone] QRS Duration 72 ms [facility] Work Phone: [phone] QT Interval 280 ms [facility] Work Phone: QTC Calculation(Bazett) 424 ms [facility] Work Phone: QTC Fredericia 369 ms [facility] Work Phone: [phone] R [place] 54 degrees [facility] Work Phone: [phone] T [place] 93 degrees [facility] Work Phone: [phone] T Offset 364 ms [facility] Work Phone: [phone] Ventricular Rate 138 BPM [facility] Work Phone: [phone] [facility] Work Phone: [phone] ECG 12 leadon 08-17-2024 Sinus tachycardia Septal infarct (cited on or before 29-JUN-2024) Abnormal ECG Confirmed by Сергей Bustillos ([id number]) on 08/17/2024 4:33:25 PM Сергей Meade MD - 08/17/2024 Sinus tachycardia Septal infarct (cited on or before 29-JUN-2024) Abnormal ECG Confirmed by Сергей Bustillos ([id number]) on 08/17/2024 4:33:25 PM [facility] Work Phone: Basic Metabolic Panelon -0 Anion gap [Moles/Vol] 10 mmol/L Normal 9-15 [facility] Comment on above: Order Comment: CALL doctor [id number] tel. [phone], FAX [phone] CALL doctor L0314 tel. [phone], FAX [phone] Performed By: #### B MP #### [facility] [address] [place] [address] Calcium [Mass/Vol] 9.1 mg/dL Normal 8.5-9.9 [facility] Comment on above: Order Comment: CALL doctor L0314 tel. [phone], FAX [phone] CALL doctor L0314 tel. [phone], FAX [phone] Performed By: #### B MP #### [facility] [address] [place] [address] Chloride [Moles/Vol] 101 mmol/L Normal 95-107 [facility] Comment on above: Order Comment: CALL doctor L0314 tel. [phone], FAX [phone] CALL doctor L0314 tel. [phone], FAX [phone] Performed By: #### B MP #### [facility] [address] [place] [address] CO2 [Moles/Vol] 29 mmol/L Normal 20-31 [facility] Comment on above: Order Comment: CALL doctor L0314 tel. [phone], FAX [phone] CALL doctor L0314 tel. [phone], FAX [phone] Performed By: #### B MP #### [facility] [address] [place] [address] Creatinine [Mass/Vol] 0.68 mg/dL Normal 0.50-0.90 [facility] Comment on above: Order Comment: CALL doctor L0314 tel. [phone], FAX [phone] CALL doctor L0314 tel. [phone], FAX [phone] Performed By: #### B MP #### [facility] [address] [place] [address] GFR >90.0 Normal >60 [facility] Comment on above: Order Comment: CALL doctor L0314 tel. [phone], FAX [phone] CALL doctor L0314 tel. [phone], FAX [phone] Result Comment: Mirela atric calculator link [email or web address]/[email or web address]_[email or web address] [...] secretion. Performed By: #### B MP #### [facility] [address] [place] [address] Glucose [Mass/Vol] 429 mg/dL Critically high 70-99 [facility] Comment on above: Order Comment: CALL doctor L0314 tel. [phone], FAX [phone] CALL doctor L0314 tel. [phone], FAX [phone] Performed By: #### B MP #### [facility] [address] [place] [address] Potassium [Moles/Vol] 4.6 mmol/L Normal 3.4-4.9 [facility] Comment on above: Order Comment: CALL doctor L0314 tel. [phone], FAX [phone] CALL doctor L0314 tel. [phone], FAX [phone] Performed By: #### B MP #### [facility] [address] [place] [address] Sodium [Moles/Vol] 140 mmol/L Normal 135-144 [facility] Comment on above: Order Comment: CALL doctor L0314 tel. [phone], FAX [phone] CALL doctor L0314 tel. [phone], FAX [phone] Performed By: #### B MP #### [facility] [address] [place] [address] Urea nitrogen [Mass/Vol] 19 mg/dL Normal 6-20 [facility] Comment on above: Order Comment: CALL doctor L0314 tel. [phone], FAX [phone] CALL doctor L0314 tel. [phone], FAX [phone] Performed By: #### B MP #### [facility] [address] [place] [address] CBC With Platelet and Differ entialon 07-17-2024 Basophils (Bld) [#/Vol] 0.0 10*3/uL Normal 0.0-0.2 [facility] Comment on above: Order Comment: CALL doctor L0314 tel. [phone], FAX [phone] CALL doctor L0314 tel. [phone], FAX [phone] Performed By: #### C BCWD #### [facility] [address] [place] [address] Basophils/100 WBC (Bld) 0.9 % Normal [facility] Comment on above: Order Comment: CALL doctor L0314 tel. [phone], FAX [phone] CALL doctor L0314 tel. [phone], FAX [phone] Performed By: #### C BCWD #### [facility] [address] [place] [address] Eosinophils (Bld) [#/Vol] 0.1 10*3/uL Normal 0.0-0.7 [facility] Comment on above: Order Comment: CALL doctor L0314 tel. [phone], FAX [phone] CALL doctor L0314 tel. [phone], FAX [phone] Performed By: #### C BCWD #### [facility] [address] [place] [address] Eosinophils/100 WBC (Bld) 2.4 % Normal [facility] Comment on above: Order Comment: CALL doctor L0314 tel. [phone], FAX [phone] CALL doctor L0314 tel. [phone], FAX [phone] Performed By: #### C BCWD #### [facility] [address] [place] [address] Erythrocyte distribution width (RBC) [Ratio] 13.3 % Normal 11.5-14.5 [facility] Comment on above: Order Comment: CALL doctor L0314 tel. [phone], FAX [phone] CALL doctor L0314 tel. [phone], FAX [phone] Performed By: #### C BCWD #### [facility] [address] [place] [address] Hematocrit (Bld) [Volume fraction] 39.9 % Normal 37.0-47.0 [facility] Comment on above: Order Comment: CALL doctor L0314 tel. [phone], FAX [phone] CALL doctor L0314 tel. [phone], FAX [phone] Performed By: #### C BCWD #### [facility] [address] [place] [address] Hemoglobin (Bld) [Mass/Vol] 12.8 g/dL Normal 12.0-16.0 [facility] Comment on above: Order Comment: CALL doctor L0314 tel. [phone], FAX [phone] CALL doctor L0314 tel. [phone], FAX [phone] Performed By: #### C BCWD #### [facility] [address] [place] [address] Lymphocytes (Bld) [#/Vol] 1.2 10*3/uL Normal 1.0-4.8 [facility] Comment on above: Order Comment: CALL doctor L0314 tel. [phone], FAX [phone] CALL doctor L0314 tel. [phone], FAX [phone] Performed By: #### C BCWD #### [facility] [address] [place] [address] Lymphocytes/100 WBC (Bld) 27.1 % Normal [facility] Comment on above: Order Comment: CALL doctor L0314 tel. [phone], FAX [phone] CALL doctor L0314 tel. [phone], FAX [phone] Performed By: #### C BCWD #### [facility] [address] [place] [address] MCH (RBC) [Entitic mass] 27.7 pg Normal 27.0-31.3 [facility] Comment on above: Order Comment: CALL doctor L0314 tel. [phone], FAX [phone] CALL doctor L0314 tel. [phone], FAX [phone] Performed By: #### C BCWD #### [facility] [address] [place] [address] MCHC 32.1 % Low 33.0-37.0 [facility] Comment on above: Order Comment: CALL doctor L0314 tel. [phone], FAX [phone] CALL doctor L0314 tel. [phone], FAX [phone] Performed By: #### C BCWD #### [facility] [address] [place] [address] MCV (RBC) [Entitic vol] 86.4 fL Normal 79.4-94.8 [facility] Comment on above: Order Comment: CALL doctor L0314 tel. [phone], FAX [phone] CALL doctor L0314 tel. [phone], FAX [phone] Performed By: #### C BCWD #### [facility] [address] [place] [address] Monocytes (Bld) [#/Vol] 0.5 10*3/uL Normal 0.2-0.8 [facility] Comment on above: Order Comment: CALL doctor L0314 tel. [phone], FAX [phone] CALL doctor L0314 tel. [phone], FAX [phone] Performed By: #### C BCWD #### [facility] [address] [place] [address] Monocytes/100 WBC (Bld) 11.8 % Normal [facility] Comment on above: Order Comment: CALL doctor L0314 tel. [phone], FAX [phone] CALL doctor L0314 tel. [phone], FAX [phone] Performed By: #### C BCWD #### [facility] [address] [place] [address] Neutrophils (Bld) [#/Vol] 2.5 10*3/uL Normal 1.4-6.5 [facility] Comment on above: Order Comment: CALL doctor L0314 tel. [phone], FAX [phone] CALL doctor L0314 tel. [phone], FAX [phone] Performed By: #### C BCWD #### [facility] [address] [place] [address] Neutrophils/100 WBC (Bld) 56.2 % Normal [facility] Comment on above: Order Comment: CALL doctor L0314 tel. [phone], FAX [phone] CALL doctor L0314 tel. [phone], FAX [phone] Performed By: #### C BCWD #### [facility] [address] [place] [address] Platelets (Bld) [#/Vol] 283 10*3/uL Normal 130-400 [facility] Comment on above: Order Comment: CALL doctor L0314 tel. [phone], FAX [phone] CALL doctor L0314 tel. [phone], FAX [phone] Performed By: #### C BCWD #### [facility] [address] [place] [address] RBC (Bld) [#/Vol] 4.62 10*6/uL Normal 4.20-5.40 [facility] Comment on above: Order Comment: CALL doctor L0314 tel. [phone], FAX [phone] CALL doctor L0314 tel. [phone], FAX [phone] Performed By: #### C BCWD #### [facility] [address] [place] [address] WBC (Bld) [#/Vol] 4.5 10*3/uL Low 4.8-10.8 [facility] Comment on above: Order Comment: CALL doctor L0314 tel. [phone], FAX [phone] CALL doctor L0314 tel. [phone], FAX [phone] Performed By: #### C BCWD #### [facility] [address] [place] [address] Magnesiumon 07-17-2024 Magnesium [Mass/Vol] 2.0 mg/dL Normal 1.7-2.4 [facility] Comment on above: Order Comment: CALL doctor L0314 tel. [phone], FAX [phone] CALL doctor L0314 tel. [phone], FAX [phone] Performed By: #### M G #### [facility] [address] [place] [address] Glucose Test strip manual (B ld) [Mass/Vol]on 07-13-2024 Glucose [Mass/Vol] 252 mg/dL High 74-99 [facility] [facility] Comment on above: Result Comment: GOLD LEIVA Performed By: #### 2 4323-8 #### CHITO SIDDIQI (06602) [facility] ([facility]) [address] [place] [address] Glucose [Mass/Vol] 260 mg/dL High 74-99 [facility] Comment on above: Performed By: #### 2 4323-8 #### CHITO SIDDIQI (73275) [facility] ([facility]) [address] [place] [address] Glucose Test strip manual (B ld) [Mass/Vol]on 07-12-2024 Glucose [Mass/Vol] 351 mg/dL High 74-99 [facility] Comment on above: Performed By: #### 2 4323-8 #### CHITO SIDDIQI (80838) [facility] ([facility]) [address] [place] [address] Glucose [Mass/Vol] 246 mg/dL High 74-99 [facility] Comment on above: Performed By: #### 2 4323-8 #### CHITO SIDDIQI (60365) [facility] ([facility]) [address] [place] [address] Glucose [Mass/Vol] 347 mg/dL High 74-99 [facility] Comment on above: Performed By: #### 2 4323-8 #### CHITO SIDDIQI (25701) [facility] ([facility]) [address] [place] [address] Glucose [Mass/Vol] 250 mg/dL High -99 [facility] Comment on above: Performed By: #### 2 4323-8 #### CHITO SIDDIQI (02612) [facility] ([facility]) [address] [place] [address] Basic metabolic 2000 panelon 07-11-2024 Anion gap [Moles/Vol] 11 mmol/L Normal 10-20 [facility] Comment on above: Performed By: #### 2 4323-8 #### CHITO SIDDIQI (32058) [facility] ([facility]) [address] [place] [address] Calcium [Mass/Vol] 8.5 mg/dL Low 8.6-10.3 [facility] Comment on above: Performed By: #### 2 4323-8 #### CHITO SIDDIQI (15175) [facility] ([facility]) [address] [place] [address] Chloride [Moles/Vol] 104 mmol/L Normal 98-107 [facility] Comment on above: Performed By: #### 2 4323-8 #### CHITO SIDDIQI (74805) [facility] ([facility]) [address] [place] [address] CO2 [Moles/Vol] 26 mmol/L Normal 21-32 [facility] Comment on above: Performed By: #### 2 4323-8 #### CHITO SIDDIQI (85450) [facility] ([facility]) [address] [place] [address] Creatinine [Mass/Vol] 0.45 mg/dL Low 0.50-1.05 [facility] Comment on above: Performed By: #### 2 4323-8 #### CHITO SIDDIQI (21019) [facility] ([facility]) [address] [place] [address] GFR/1.73 sq M.predicted MDRD (S/P/Bld) [Vol rate/Area] mL/min/{1.73_m2} Normal >60 [facility] Comment on above: Result Comment: Calc ulations of estimated GFR are performed using the 2020 CKD-EPI Study Refit equation without the race variable for the IDMS-Traceable creatinine methods. https://jasn.asnjournals.org/content/early/ASN.496189 7525 Performed By: #### 2 4323-8 #### CHITO SIDDIQI (69888) [facility] ([facility]) [address] [place] [address] Glucose [Mass/Vol] 251 mg/dL High 74-99 [facility] Comment on above: Performed By: #### 2 4323-8 #### CHITO SIDDIQI (60830) [facility] ([facility]) [address] [place] [address] Potassium [Moles/Vol] 4.2 mmol/L Normal 3.5-5.3 [facility] Comment on above: Result Comment: MILD HEMOLYSIS DETECTED. The result may be falsely elevated due to hemolysis or other interferents. Clinical correlation is recommended. Repeat testing may be considered. Performed By: #### 2 4323-8 #### CHITO SIDDIQI (93342) [facility] ([facility]) [address] [place] [id number] Sodium [Moles/Vol] 137 mmol/L Normal 136-145 [facility] Comment on above: Performed By: #### 2 4323-8 #### CHITO SIDDIQI (79057) [facility] ([facility]) [address] [place] [address] Urea nitrogen [Mass/Vol] 19 mg/dL Normal 6-23 [facility] Comment on above: Performed By: #### 2 4323-8 #### CHITO SIDDIQI (07439) [facility] ([facility]) [address] [place] [address] CBC panel Auto (Bld)on 07-11 Erythrocyte distribution width (RBC) [Ratio] 13.3 % Normal 11.5-14.5 [facility] Comment on above: Performed By: #### 2 3-8 #### CHITO SIDDIQI (61203) [facility] ([facility]) [address] [place] [id number] Hematocrit (Bld) [Volume fraction] 38.3 % Normal 36.0-46.0 [facility] Comment on above: Performed By: #### 2 3-8 #### CHITO SIDDIQI (58592) [facility] ([facility]) [address] [place] [id number] Hemoglobin (Bld) [Mass/Vol] 12.1 g/dL Normal 12.0-16.0 [facility] Comment on above: Performed By: #### 2 3-8 #### CHITO SIDDIQI (40512) [facility] ([facility]) [address] [place] [id number] MCH (RBC) [Entitic mass] 27.3 pg Normal 26.0-34.0 [facility] Comment on above: Performed By: #### 2 4323-8 #### CHITO SIDDIQI (21745) [facility] ([facility]) [address] [place] [address] MCHC (RBC) [Mass/Vol] 31.6 g/dL Low 32.0-36.0 [facility] Comment on above: Performed By: #### 2 4323-8 #### CHITO SIDDIQI (10127) [facility] ([facility]) [address] [place] [address] MCV (RBC) [Entitic vol] 87 fL Normal 80-100 [facility] Comment on above: Performed By: #### 2 3-8 #### CHITO SIDDIQI (68097) [facility] ([facility]) [address] [place] [address] Nucleated RBC/100 WBC (Bld) [Ratio] 0.0 /100 WBCs Normal 0.0-0.0 [facility] Comment on above: Performed By: #### 2 432-8 #### CHITO SIDDIQI (78951) [facility] ([facility]) [address] [place] [id number] Platelets (Bld) [#/Vol] 277 x10*3/uL Normal 150-450 [facility] Comment on above: Performed By: #### 2 4322-8 #### CHITO SIDDIQI (82478) [facility] ([facility]) [address] [place] [address] RBC (Bld) [#/Vol] 4.43 x10*6/uL Normal 4.00-5.20 [facility] Comment on above: Performed By: #### 2 4323-8 #### CHITO SIDDIQI (92292) [facility] ([facility]) [address] [place] [address] WBC (Bld) [#/Vol] 8.5 x10*3/uL Normal 4.4-11.3 [facility] Comment on above: Performed By: #### 2 4323-8 #### CHITO SIDDIQI (97292) [facility] ([facility]) [address] [place] [id number] Glucose Test strip manual (B ld) [Mass/Vol]on 07-11-2024 Glucose [Mass/Vol] 373 mg/dL High [address] [place] [address] Comment on above: Performed By: #### 2 4323-8 #### CHITO SIDDIQI (28545) [facility] ([facility]) [address] [place] [address] Glucose [Mass/Vol] 237 mg/dL High [address] [place] [address] Comment on above: Performed By: #### 2 4323-8 #### CHITO SIDDIQI (02332) [facility] ([facility]) [address] [place] [address] Glucose [Mass/Vol] 296 mg/dL High [address] [place] [address] Comment on above: Performed By: #### 2 4323-8 #### CHITO SIDDIQI (02182) [facility] ([facility]) [address] [place] [address] Glucose [Mass/Vol] 245 mg/dL [address] Comment on above: Performed By: #### 2 4322-8 #### CHITO SIDDIQI (15344) [facility] ([facility]) [address] [place] [address] Glucose Test strip manual (B ld) [Mass/Vol]on 07-10-2024 Glucose [Mass/Vol] 335 mg/dL High [address] [place] [address] Comment on above: Performed By: #### 2 4323-8 #### CHIOT SIDDIQI (90833) [facility] ([facility]) [address] [place] [address] Glucose [Mass/Vol] 255 mg/dL High [address] [place] [address] Comment on above: Performed By: #### 2 4323-8 #### CHITO SIDDIQI (34631) [facility] ([facility]) [address] [place] [address] Glucose [Mass/Vol] 288 mg/dL High [address] [place] [address] Comment on above: Performed By: #### 2 4323-8 #### CHITO SIDDIQI (75955) [facility] ([facility]) [address] [place] [address] Glucose [Mass/Vol] 267 mg/dL High 74-99 [facility] Comment on above: Performed By: #### 2 4323-8 #### CHITO SIDDIQI (91263) [facility] ([facility]) [address] [place] [address] CBC panel Auto (Bld)on 07-09 Erythrocyte distribution width (RBC) [Ratio] 13.6 % Normal 11.5-14.5 [facility] Comment on above: Performed By: #### 2 432-8 #### CHITO SIDDIQI (54502) [facility] ([facility]) [address] [place] [address] Hematocrit (Bld) [Volume fraction] 40.9 % Normal 36.0-46.0 [facility] Comment on above: Performed By: #### 2 4323-8 #### CHITO SIDDIQI (93163) [facility] ([facility]) [address] [place] [id number] Hemoglobin (Bld) [Mass/Vol] 13.4 g/dL Normal 12.0-16.0 [facility] Comment on above: Performed By: #### 2 4322-8 #### CHITO SIDDIQI (10927) [facility] ([facility]) [address] [place] [address] MCH (RBC) [Entitic mass] 28.2 pg Normal 26.0-34.0 [facility] Comment on above: Performed By: #### 2 3-8 #### CHITO SIDDIQI (92917) [facility] ([facility]) [address] [place] [address] MCHC (RBC) [Mass/Vol] 32.8 g/dL Normal 32.0-36.0 [facility] Comment on above: Performed By: #### 2 4322-8 #### CHITO SIDDIQI (72015) [facility] ([facility]) [address] [place] [address] MCV (RBC) [Entitic vol] 86 fL Normal 80-100 [facility] Comment on above: Performed By: #### 2 432-8 #### CHITO SIDDIQI (43208) [facility] ([facility]) [address] [place] [id number] Nucleated RBC/100 WBC (Bld) [Ratio] 0.0 /100 WBCs Normal 0.0-0.0 [facility] Comment on above: Performed By: #### 2 3-8 #### CHITO SIDDIQI (23890) [facility] ([facility]) [address] [place] [address] Platelets (Bld) [#/Vol] 304 x10*3/uL Normal 150-450 [facility] Comment on above: Performed By: #### 2 4322-8 #### CHITO SIDDIQI (15667) [facility] ([facility]) [address] [place] [address] RBC (Bld) [#/Vol] 4.76 x10*6/uL Normal 4.00-5.20 [facility] Comment on above: Performed By: #### 2 4322-8 #### CHITO SIDDIQI (00062) [facility] ([facility]) [address] [place] [id number] WBC (Bld) [#/Vol] 13.4 x10*3/uL High 4.4-11.3 [facility] Comment on above: Performed By: #### 2 4323-8 #### CHITO SIDDIQI (63232) [facility] ([facility]) [address] [place] [id number] Comprehensive metabolic 2000 panelon 07-09-2024 Albumin BCP dye [Mass/Vol] 3.1 g/dL Low 3.4-5.0 [facility] Comment on above: Performed By: #### 2 3-8 #### CHITO SIDDIQI (09429) [facility] ([facility]) [address] [place] [id number] ALP [Catalytic activity/Vol] 246 U/L High 33-110 [facility] Comment on above: Performed By: #### 2 4323-8 #### CHITO SIDDIQI (70620) [facility] ([facility]) [address] [place] [address] ALT With P-5'-P [Catalytic activity/Vol] 41 U/L Normal 7-45 [facility] Comment on above: Result Comment: Camila ents treated with Sulfasalazine may generate falsely decreased results for ALT. Performed By: #### 2 4323-8 #### CHITO SIDDIQI (88089) [facility] ([facility]) [address] [place] [address] Anion gap [Moles/Vol] 10 mmol/L Normal 10-20 [facility] Comment on above: Performed By: #### 2 4322-8 #### CHITO SIDDIQI (31447) [facility] ([facility]) [address] [place] [address] AST With P-5'-P [Catalytic activity/Vol] 22 U/L Normal 9-39 [facility] Comment on above: Performed By: #### 2 4322-8 #### CHITO SIDDIQI (81731) [facility] ([facility]) [address] [place] [address] Bilirubin [Mass/Vol] 0.5 mg/dL Normal 0.0-1.2 [facility] Comment on above: Performed By: #### 2 3-8 #### CHITO SIDDIQI (18295) [facility] ([facility]) [address] [place] [address] Calcium [Mass/Vol] 8.9 mg/dL Normal 8.6-10.3 [facility] Comment on above: Performed By: #### 2 3-8 #### CHITO SIDDIQI (66612) [facility] ([facility]) [address] [place] [address] Chloride [Moles/Vol] 101 mmol/L Normal 98-107 [facility] Comment on above: Performed By: #### 2 4323-8 #### CHITO SIDDIQI (76168) [facility] ([facility]) [address] [place] [address] CO2 [Moles/Vol] 30 mmol/L Normal 21-32 [facility] Comment on above: Performed By: #### 2 4323-8 #### CHITO SIDDIQI (49993) [facility] ([facility]) [address] [place] [address] Creatinine [Mass/Vol] 0.43 mg/dL Low 0.50-1.05 [facility] Comment on above: Performed By: #### 2 4323-8 #### CHITO SIDDIQI (10812) [facility] ([facility]) [address] [place] [address] GFR/1.73 sq M.predicted MDRD (S/P/Bld) [Vol rate/Area] mL/min/{1.73_m2} Normal >60 [facility] Comment on above: Result Comment: Calc ulations of estimated GFR are performed using the 2020 CKD-EPI Study Refit equation without the race variable for the IDMS-Traceable creatinine methods. https://jasn.asnjournals.org/content/early//ASN.197483 9499 Performed By: #### 2 4323-8 #### CHITO SIDDIQI (87548) [facility] ([facility]) [address] [place] [address] Glucose [Mass/Vol] 286 mg/dL High 74-99 [facility] Comment on above: Performed By: #### 2 4323-8 #### CHITO SIDDIQI (81118) [facility] ([facility]) [address] [place] [address] Potassium [Moles/Vol] 4.1 mmol/L Normal 3.5-5.3 [facility] Comment on above: Performed By: #### 2 4323-8 #### CHITO SIDDIQI (36959) [facility] ([facility]) [address] [place] [address] Protein [Mass/Vol] 6.3 g/dL Low 6.4-8.2 [facility] Comment on above: Performed By: #### 2 4323-8 #### CHITO SIDDIQI (70673) [facility] ([facility]) [address] [place] [address] Sodium [Moles/Vol] 137 mmol/L Normal 136-145 [facility] Comment on above: Performed By: #### 2 432-8 #### CHITO SIDDIQI (74937) [facility] ([facility]) [address] [place] [address] Urea nitrogen [Mass/Vol] 22 mg/dL Normal 6-23 [facility] Comment on above: Performed By: #### 2 4322-8 #### CHITO SIDDIQI (05994) [facility] ([facility]) [address] [place] [address] Glucose Test strip manual (B ld) [Mass/Vol]on 07-09-2024 Glucose [Mass/Vol] 277 mg/dL High [address] [place] [address] Comment on above: Performed By: #### 2 4322-8 #### CHITO SIDDIQI (95698) [facility] ([facility]) [address] [place] [address] Glucose [Mass/Vol] 243 mg/dL High [address] [place] [address] Comment on above: Performed By: #### 2 4322-8 #### CHITO SIDDIQI (52883) [facility] ([facility]) [address] [place] [address] Glucose [Mass/Vol] 254 mg/dL High [address] [place] [address] Comment on above: Performed By: #### 2 3-8 #### CHITO SIDDIQI (94642) [facility] ([facility]) [address] [place] [address] Glucose [Mass/Vol] 283 mg/dL High 74-99 [facility] Comment on above: Performed By: #### 2 4322-8 #### CHITO SIDDIQI (63154) [facility] ([facility]) [address] [place] [address] CBC panel Auto (Bld)on 07-08 Erythrocyte distribution width (RBC) [Ratio] 13.8 % Normal 11.5-14.5 [facility] Comment on above: Performed By: #### 2 4323-8 #### CHITO SIDDIQI (71644) [facility] ([facility]) [address] [place] [address] Hematocrit (Bld) [Volume fraction] 42.3 % Normal 36.0-46.0 [facility] Comment on above: Performed By: #### 2 4323-8 #### CHITO SIDDIQI (48381) [facility] ([facility]) [address] [place] [address] Hemoglobin (Bld) [Mass/Vol] 13.4 g/dL Normal 12.0-16.0 [facility] Comment on above: Performed By: #### 2 4322-8 #### CHITO SIDDIQI (16242) [facility] ([facility]) [address] [place] [address] MCH (RBC) [Entitic mass] 27.8 pg Normal 26.0-34.0 [facility] Comment on above: Performed By: #### 2 4322-8 #### CHITO SIDDIQI (48426) [facility] ([facility]) [address] [place] [address] MCHC (RBC) [Mass/Vol] 31.7 g/dL Low 32.0-36.0 [facility] Comment on above: Performed By: #### 2 3-8 #### CHITO SIDDIQI (03550) [facility] ([facility]) [address] [place] [address] MCV (RBC) [Entitic vol] 88 fL Normal 80-100 [facility] Comment on above: Performed By: #### 2 3-8 #### CHITO SIDDIQI (54171) [facility] ([facility]) [address] [place] [id number] Nucleated RBC/100 WBC (Bld) [Ratio] 0.0 /100 WBCs Normal 0.0-0.0 [facility] Comment on above: Performed By: #### 2 3-8 #### CHITO SIDDIQI (67397) [facility] ([facility]) [address] [place] [address] Platelets (Bld) [#/Vol] 307 x10*3/uL Normal 150-450 [facility] Comment on above: Performed By: #### 2 4323-8 #### CHITO SIDDIQI (87199) [facility] ([facility]) [address] [place] [id number] RBC (Bld) [#/Vol] 4.82 x10*6/uL Normal 4.00-5.20 [facility] Comment on above: Performed By: #### 2 4323-8 #### CHITO SIDDIQI (11762) [facility] ([facility]) [address] [place] [id number] WBC (Bld) [#/Vol] 17.9 x10*3/uL High 4.4-11.3 [facility] Comment on above: Performed By: #### 2 4323-8 #### CHITO SIDDIQI (30097) [facility] ([facility]) [address] [place] [address] Comprehensive metabolic 2000 panelon 07-08-2024 Albumin BCP dye [Mass/Vol] 3.3 g/dL Low 3.4-5.0 [facility] Comment on above: Performed By: #### 2 4323-8 #### CHITO SIDDIQI (53478) [facility] ([facility]) [address] [place] [id number] ALP [Catalytic activity/Vol] 282 U/L High 33-110 [facility] Comment on above: Performed By: #### 2 4323-8 #### CHITO SIDDIQI (58744) [facility] ([facility]) [address] [place] [id number] ALT With P-5'-P [Catalytic activity/Vol] 42 U/L Normal 7-45 [facility] Comment on above: Result Comment: Camila ents treated with Sulfasalazine may generate falsely decreased results for ALT. Performed By: #### 2 4323-8 #### CHITO SIDDIQI (23248) [facility] ([facility]) [address] [place] [address] Anion gap [Moles/Vol] 11 mmol/L Normal 10-20 [facility] Comment on above: Performed By: #### 2 4323-8 #### CHITO SIDDIQI (27522) [facility] ([facility]) [address] [place] [address] AST With P-5'-P [Catalytic activity/Vol] 21 U/L Normal 9-39 [facility] Comment on above: Performed By: #### 2 4323-8 #### CHITO SIDDIQI (00012) [facility] ([facility]) [address] [place] [address] Bilirubin [Mass/Vol] 0.5 mg/dL Normal 0.0-1.2 [facility] Comment on above: Performed By: #### 2 432-8 #### CHITO SIDDIQI (42299) [facility] ([facility]) [address] [place] [address] Calcium [Mass/Vol] 8.9 mg/dL Normal 8.6-10.3 [facility] Comment on above: Performed By: #### 2 432-8 #### CHITO SIDDIQI (32051) [facility] ([facility]) [address] [place] [address] Chloride [Moles/Vol] 101 mmol/L Normal 98-107 [facility] Comment on above: Performed By: #### 2 4323-8 #### CHITO SIDDIQI (53186) [facility] ([facility] [place]) [address] [place] [address] CO2 [Moles/Vol] 28 mmol/L Normal 21-32 [facility] Comment on above: Performed By: #### 2 4323-8 #### CHITO SIDDIQI (87037) [facility] ([facility] [place]) [address] [place] [address] Creatinine [Mass/Vol] 0.40 mg/dL Low 0.50-1.05 [facility] Comment on above: Performed By: #### 2 4323-8 #### CHITO SIDDIQI (55529) [facility] ([facility] [place]) [address] [place] [address] GFR/1.73 sq M.predicted MDRD (S/P/Bld) [Vol rate/Area] mL/min/{1.73_m2} Normal >60 [facility] Comment on above: Result Comment: Calc ulations of estimated GFR are performed using the 2020 CKD-EPI Study Refit equation without the race variable for the IDMS-Traceable creatinine methods. https://jasn.asnjournals.org/content/early//ASN.617084 1525 Performed By: #### 2 4323-8 #### CHITO SIDDIQI (57775) [facility] ([facility] [place]) [address] [place] [address] Glucose [Mass/Vol] 258 mg/dL High 74-99 [facility] Comment on above: Performed By: #### 2 4323-8 #### CHITO SIDDIQI (94978) [facility] ([facility] [place]) [address] [place] [address] Potassium [Moles/Vol] 4.1 mmol/L Normal 3.5-5.3 [facility] Comment on above: Performed By: #### 2 4323-8 #### CHITO SIDDIQI (01743) [facility] ([facility] [place]) [address] [place] [address] Protein [Mass/Vol] 6.5 g/dL Normal 6.4-8.2 [facility] Comment on above: Performed By: #### 2 4323-8 #### CHITO SIDDIQI (61824) [facility] ([facility] [place]) [address] [place] [address] Sodium [Moles/Vol] 136 mmol/L Normal 136-145 [facility] Comment on above: Performed By: #### 2 4323-8 #### CHITO SIDDIQI (27303) [facility] ([facility] [address] [place] [address] Urea nitrogen [Mass/Vol] 20 mg/dL Normal 6-23 [facility] Comment on above: Performed By: #### 2 4323-8 #### CHITO SIDDIQI (71736) [facility] ([facility]) [address] [place] [address] Glucose Test strip manual (B ld) [Mass/Vol]on 07-08-2024 Glucose [Mass/Vol] 352 mg/dL High [address] [place] [address] Comment on above: Performed By: #### 2 4323-8 #### CHITO SIDDIQI (94136) [facility] ([facility]) [address] [place] [address] Glucose [Mass/Vol] 443 mg/dL High [address] [place] [address] Comment on above: Performed By: #### 2 4323-8 #### CHITO SIDDIQI (06777) [facility] ([facility]) [address] [place] [address] Glucose [Mass/Vol] 286 mg/dL High [address] [place] [address] Comment on above: Performed By: #### 2 4323-8 #### CHITO SIDDIQI (67083) [facility] ([facility]) [address] [place] [address] Glucose [Mass/Vol] 259 mg/dL High [address] [place] [address] Comment on above: Performed By: #### 2 4323-8 #### CHITO SIDDIQI (36945) [facility] ([facility]) [address] [place] [id number] CBC W Auto Differential pane l (Bld)on 07-07-2024 Erythrocyte distribution width (RBC) [Ratio] 13.7 % Normal 11.5-14.5 [facility] Comment on above: Order Comment: The p [...] By: #### 2 4323-8 #### CHITO SIDDIQI (89519) [facility] ([facility]) [address] [place] [address] Hematocrit (Bld) [Volume fraction] 40.3 % Normal 36.0-46.0 [facility] Comment on above: Order Comment: The p [...] By: #### 2 4323-8 #### CHITO SIDDIQI (12464) [facility] ([facility]) [address] [place] [address] Hemoglobin (Bld) [Mass/Vol] 13.1 g/dL Normal 12.0-16.0 [facility] Comment on above: Order Comment: The p [...] By: #### 2 4323-8 #### CHITO SIDDIQI (80860) [facility] ([facility]) [address] [place] [address] Immature granulocytes (Bld) [#/Vol] 1.31 x10*3/uL High 0.00-0.70 [facility] Comment on above: Order Comment: The p [...] By: #### 2 4323-8 #### CHITO SIDDIQI (80296) [facility] ([facility]) [address] [place] [address] Immature granulocytes/100 WBC (Bld) 8.8 % High 0.0-0.9 [facility] Comment on above: Order Comment: The p [...] By: #### 2 4323-8 #### CHITO SIDDIQI (10447) [facility] ([facility]) [address] [place] [address] MCH (RBC) [Entitic mass] 27.9 pg Normal 26.0-34.0 [facility] Comment on above: Order Comment: The p [...] By: #### 2 4323-8 #### CHITO SIDDIQI (30057) [facility] ([facility]) [address] [place] [address] MCHC (RBC) [Mass/Vol] 32.5 g/dL Normal 32.0-36.0 [facility] Comment on above: Order Comment: The [...] By: #### 2 4323-8 #### CHITO SIDDIQI (74622) [facility] ([facility]) [address] [place] [address] MCV (RBC) [Entitic vol] 86 fL Normal 80-100 [facility] Comment on above: Order Comment: The p [...] By: #### 2 4323-8 #### CHITO SIDDIQI (31084) [facility] ([facility]) [address] [place] [address] Nucleated RBC/100 WBC (Bld) [Ratio] 0.0 /100 WBCs Normal 0.0-0.0 [facility] Comment on above: Order Comment: The p [...] By: #### 2 4323-8 #### CHITO SIDDIQI (32350) [facility] ([facility]) [address] [place] [address] Platelets (Bld) [#/Vol] 207 x10*3/uL Normal 150-450 [facility] Comment on above: Order Comment: The p [...] By: #### 2 4323-8 #### CHITO SIDDIQI (01138) [facility] ([facility]) [address] [place], [place] [id number] RBC (Bld) [#/Vol] 4.69 x10*6/uL Normal 4.00-5.20 [facility] Comment on above: Order Comment: The p [...] By: #### 2 4323-8 #### CHITO SIDDIQI (81926) [facility] ([facility]) [address] [place] [address] WBC (Bld) [#/Vol] 15.0 x10*3/uL High 4.4-11.3 [facility] Comment on above: Order Comment: The p [...] By: #### 2 4323-8 #### CHITO SIDDIQI (80714) [facility] ([facility]) [address] [place] [address] Comprehensive metabolic 2000 panelon 07-07-2024 Albumin BCP dye [Mass/Vol] 3.0 g/dL Low 3.4-5.0 [facility] Comment on above: Performed By: #### 2 4323-8 #### CHITO SIDDIQI (77033) [facility] ([facility]) [address] [place] [id number] ALP [Catalytic activity/Vol] 231 U/L High 33-110 [facility] Comment on above: Performed By: #### 2 4323-8 #### CHITO SIDDIQI (00451) [facility] ([facility]) [address] [place] [address] ALT With P-5'-P [Catalytic activity/Vol] 39 U/L Normal 7-45 [facility] Comment on above: Result Comment: Camila ents treated with Sulfasalazine may generate falsely decreased results for ALT. Performed By: #### 2 4323-8 #### CHITO SIDDIQI (00551) [facility] ([facility]) [address] [place] [address] Anion gap [Moles/Vol] 10 mmol/L Normal 10-20 [facility] Comment on above: Performed By: #### 2 4323-8 #### CHITO SIDDIQI (43495) [facility] ([facility]) [address] [place] [address] AST With P-5'-P [Catalytic activity/Vol] 21 U/L Normal 9-39 [facility] Comment on above: Performed By: #### 2 4323-8 #### CHITO SIDDIQI (92328) [facility] ([facility]) [address] [place] [address] Bilirubin [Mass/Vol] 0.5 mg/dL Normal 0.0-1.2 [facility] Comment on above: Performed By: #### 2 4323-8 #### CHITO SIDDIQI (03143) [facility] ([facility]) [address] [place] [address] Calcium [Mass/Vol] 8.7 mg/dL Normal 8.6-10.3 [facility] Comment on above: Performed By: #### 2 4323-8 #### CHITO SIDDIQI (03558) [facility] ([facility]) [address] [place] [address] Chloride [Moles/Vol] 101 mmol/L Normal 98-107 [facility] Comment on above: Performed By: #### 2 4323-8 #### CHITO SIDDIQI (09447) [facility] ([facility]) [address] [place] [address] CO2 [Moles/Vol] 30 mmol/L Normal 21-32 [facility] Comment on above: Performed By: #### 2 4323-8 #### CHITO SIDDIQI (38371) [facility] ([facility]) [address] [place] [address] Creatinine [Mass/Vol] 0.42 mg/dL Low 0.50-1.05 [facility] Comment on above: Performed By: #### 2 4323-8 #### CHITO SIDDIQI (91871) [facility] ([facility]) [address] [place] [address] GFR/1.73 sq M.predicted MDRD (S/P/Bld) [Vol rate/Area] mL/min/{1.73_m2} Normal >60 [facility] Comment on above: Result Comment: Calc ulations of estimated GFR are performed using the 2020 CKD-EPI Study Refit equation without the race variable for the IDMS-Traceable creatinine methods. https://jasn.asnjournals.org/content/early//ASN.244058 8513 Performed By: #### 2 432-8 #### CHITO SIDDIQI (55617) [facility] ([facility]) [address] [place] [address] Glucose [Mass/Vol] 248 mg/dL High 74-99 [facility] Comment on above: Performed By: #### 2 4323-8 #### CHITO SIDDIQI (53691) [facility] ([facility]) [address] [place] [address] Potassium [Moles/Vol] 4.3 mmol/L Normal 3.5-5.3 [facility] Comment on above: Performed By: #### 2 4323-8 #### CHITO SIDDIQI (56811) [facility] ([facility]) [address] [place] [address] Protein [Mass/Vol] 6.0 g/dL Low 6.4-8.2 [facility] Comment on above: Performed By: #### 2 4323-8 #### CHITO SIDDIQI (45532) [facility] ([facility]) [address] [place] [address] Sodium [Moles/Vol] 137 mmol/L Normal 136-145 [facility] Comment on above: Performed By: #### 2 4322-8 #### CHITO SIDDIQI (97898) [facility] ([facility]) [address] [place] [address] Urea nitrogen [Mass/Vol] 18 mg/dL Normal 6-23 [facility] Comment on above: Performed By: #### 2 4323-8 #### CHITO SIDDIQI (65952) [facility] ([facility]) [address] [place] [id number] Glucose Test strip manual (B ld) [Mass/Vol]on 07-07-2024 Glucose [Mass/Vol] 289 mg/dL High -[address] [place] [address] Comment on above: Performed By: #### 2 3-8 #### CHITO SIDDIQI (57169) [facility] ([facility]) [address] [place] [address] Glucose [Mass/Vol] 347 mg/dL High -[address] [place] [address] Comment on above: Performed By: #### 2 3-8 #### CHITO SIDDIQI (87419) [facility] ([facility]) [address] [place] [address] Glucose [Mass/Vol] 235 mg/dL High [address] [place] [address] Comment on above: Performed By: #### 2 3-8 #### CHITO SIDDIQI (99117) [facility] ([facility]) [address] [place] [address] Glucose [Mass/Vol] 235 mg/dL High [address] [place] [address] Comment on above: Performed By: #### 2 3-8 #### CHITO SIDDIQI (28200) [facility] ([facility]) [address] [place] [address] Manual differential performe d Ql (Bld)on 07-07-2024 Band form neutrophils (Bld) [#/Vol] 0.15 x10*3/uL Normal 0.00-0.70 [facility] Comment on above: Performed By: #### 2 3-8 #### CHITO SIDDIQI (87676) [facility] ([facility]) [address] [place] [address] Band form neutrophils/100 WBC (Bld) 1.0 % Normal 0.0-5.0 [facility] Comment on above: Performed By: #### 2 4322-8 #### CHITO SIDDIQI (76582) [facility] ([facility]) [address] [place] [address] Basophils (Bld) [#/Vol] 0.15 x10*3/uL High 0.00-0.10 [facility] Comment on above: Performed By: #### 2 4322-8 #### CHITO SIDDIQI (98523) [facility] ([facility]) [address] [place] [address] Basophils/100 WBC (Bld) 1.0 % Normal 0.0-2.0 [facility] Comment on above: Performed By: #### 2 4322-8 #### CHITO SIDDIQI (36680) [facility] ([facility]) [address] [place] [address] Cells Counted Total (Bld) [#] 100 Normal [facility] Comment on above: Performed By: #### 2 4322-8 #### CHITO SIDDIQI (79311) [facility] ([facility]) [address] [place] [address] Eosinophils (Bld) [#/Vol] 0.00 x10*3/uL Normal 0.00-0.70 [facility] Comment on above: Performed By: #### 2 4322-8 #### CHITO SIDDIQI (67653) [facility] ([facility]) [address] [place] [address] Eosinophils/100 WBC (Bld) 0.0 % Normal 0.0-6.0 [facility] Comment on above: Performed By: #### 2 4322-8 #### CHITO SIDDIQI (28806) [facility] ([facility]) [address] [place] [address] Lymphocytes (Bld) [#/Vol] 2.10 x10*3/uL Normal 1.20-4.80 [facility] Comment on above: Performed By: #### 2 3-8 #### CHITO SIDDIQI (25009) [facility] ([facility]) [address] [place] [address] Lymphocytes/100 WBC (Bld) 14.0 % Normal 13.0-44.0 [facility] Comment on above: Performed By: #### 2 4322-8 #### CHITO SIDDIQI (73199) [facility] ([facility]) [address] [place] [address] Monocytes (Bld) [#/Vol] 0.45 x10*3/uL Normal 0.10-1.00 [facility] Comment on above: Performed By: #### 2 4322-8 #### CHITO SIDDIQI (17642) [facility] ([facility]) [address] [place] [address] Monocytes/100 WBC (Bld) 3.0 % Normal 2.0-10.0 [facility] Comment on above: Performed By: #### 2 4322-8 #### CHITO SIDDIQI (24529) [facility] ([facility]) [address] [place] [address] Neutrophils (Bld) [#/Vol] 12.30 x10*3/uL High 1.20-7.70 [facility] Comment on above: Performed By: #### 2 4322-8 #### CHITO SIDDIQI (71572) [facility] ([facility]) [address] [place] [address] Ovalocytes LM Ql (Bld) Few [facility] Comment on above: Performed By: #### 2 4322-8 #### CHITO SIDDIQI (81022) [facility] ([facility]) [address] [place] [address] Polychromasia LM Ql (Bld) Mild [facility] Comment on above: Performed By: #### 2 4323-8 #### CHITO SIDDIQI (49422) [facility] ([facility]) [address] [place] [address] RBC morphology finding Nom (Bld) See Below Normal [facility] Comment on above: Performed By: #### 2 4323-8 #### CHITO SIDDIQI (22552) [facility] ([facility]) [address] [place] [address] Segmented neutrophils (Bld) [#/Vol] 12.15 x10*3/uL High 1.20-7.00 [facility] Comment on above: Performed By: #### 2 4323-8 #### CHITO SIDDIQI (21051) [facility] ([facility]) [address] [place] [address] Segmented neutrophils/100 WBC (Bld) 81.0 % Normal 40.0-80.0 [facility] Comment on above: Result Comment: Perc ent differential counts (%) should be interpreted in the context of the absolute cell counts (cells/uL). Performed By: #### 2 4323-8 #### CHITO SIDDIQI (81676) [facility] ([facility]) [address] [place] [address] CBC W Auto Differential pane l (Bld)on 07-06-2024 Erythrocyte distribution width (RBC) [Ratio] 13.7 % Normal 11.5-14.5 [facility] Comment on above: Order Comment: The p [...] #### 2 4323-8 #### CHITO SIDDIQI (19398) [facility] ([facility]) [address] [place] [address] Hematocrit (Bld) [Volume fraction] 36.9 % Normal 36.0-46.0 [facility] Comment on above: Order Comment: The p [...] By: #### 2 4323-8 #### CHITO SIDDIQI (95094) [facility] ([facility]) [address] [place] [address] Hemoglobin (Bld) [Mass/Vol] 12.0 g/dL Normal 12.0-16.0 [facility] Comment on above: Order Comment: The p [...] By: #### 2 4323-8 #### CHITO SIDDIQI (92511) [facility] ([facility]) [address] [place] [id number] Immature granulocytes (Bld) [#/Vol] 1.21 x10*3/uL High 0.00-0.70 [facility] Comment on above: Order Comment: The p [...] By: #### 2 4323-8 #### CHITO SIDDIQI (63574) [facility] ([facility]) [address] [place] [address] Immature granulocytes/100 WBC (Bld) 9.9 % High 0.0-0.9 [facility] Comment on above: Order Comment: The p [...] By: #### 2 4323-8 #### CHITO SIDDIQI (64695) [facility] ([facility]) [address] [place] [id number] MCH (RBC) [Entitic mass] 27.4 pg Normal 26.0-34.0 [facility] Comment on above: Order Comment: The p [...] By: #### 2 4323-8 #### CHITO SIDDIQI (27792) [facility] ([facility]) [address] [place] [address] MCHC (RBC) [Mass/Vol] 32.5 g/dL Normal 32.0-36.0 [facility] Comment on above: Order Comment: The [...] By: #### 2 4323-8 #### CHITO SIDDIQI (60136) [facility] ([facility]) [address] [place] [address] MCV (RBC) [Entitic vol] 84 fL Normal 80-100 [facility] Comment on above: Order Comment: The p [...] By: #### 2 4323-8 #### CHITO SIDDIQI (26677) [facility] ([facility]) [address] [place] [address] Nucleated RBC/100 WBC (Bld) [Ratio] 0.0 /100 WBCs Normal 0.0-0.0 [facility] Comment on above: Order Comment: The p [...] By: #### 2 4323-8 #### CHITO SIDDIQI (99054) [facility] ([facility]) [address] [place] [address] Platelets (Bld) [#/Vol] 168 x10*3/uL Normal 150-450 [facility] Comment on above: Order Comment: The p [...] By: #### 2 4323-8 #### CHITO SIDDIQI 98707) [facility] ([facility]) [address] [place] [address] RBC (Bld) [#/Vol] 4.38 x10*6/uL Normal 4.00-5.20 [facility] Comment on above: Order Comment: The p [...] By: #### 2 4323-8 #### CHITO SIDDIQI (45032) [facility] ([facility]) [address] [place] [address] WBC (Bld) [#/Vol] 12.2 x10*3/uL High 4.4-11.3 [facility] Comment on above: Order Comment: The p [...] By: #### 2 4323-8 #### CHITO SIDDIQI (65077) [facility] ([facility]) [address] [place] [address] Comprehensive metabolic 2000 panelon 07-06-2024 Albumin BCP dye [Mass/Vol] 2.8 g/dL Low 3.4-5.0 [facility] Comment on above: Performed By: #### 2 4323-8 #### CHITO SIDDIQI (93570) [facility] ([facility]) [address] [place] [address] ALP [Catalytic activity/Vol] 196 U/L High 33-110 [facility] Comment on above: Performed By: #### 2 4323-8 #### CHITO SIDDIQI (31914) [facility] ([facility]) [address] [place] [address] ALT With P-5'-P [Catalytic activity/Vol] 35 U/L Normal 7-45 [facility] Comment on above: Result Comment: Camila ents treated with Sulfasalazine may generate falsely decreased results for ALT. Performed By: #### 2 4323-8 #### CHITO SIDDIQI (64885) [facility] ([facility]) [address] [place] [address] Anion gap [Moles/Vol] 10 mmol/L Normal 10-20 [facility] Comment on above: Performed By: #### 2 4323-8 #### CHITO SIDDIQI (37162) [facility] ([facility]) [address] [place] [address] AST With P-5'-P [Catalytic activity/Vol] 21 U/L Normal 9-39 [facility] Comment on above: Performed By: #### 2 4323-8 #### CHITO SIDDIQI (71067) [facility] ([facility]) [address] [place] [address] Bilirubin [Mass/Vol] 0.5 mg/dL Normal 0.0-1.2 [facility] Comment on above: Performed By: #### 2 4323-8 #### CHITO SIDDIQI (14659) [facility] ([facility]) [address] [place] [address] Calcium [Mass/Vol] 8.4 mg/dL Low 8.6-10.3 [facility] Comment on above: Performed By: #### 2 4323-8 #### CHITO SIDDIQI (20569) [facility] ([facility]) [address] [place] [address] Chloride [Moles/Vol] 103 mmol/L Normal 98-107 [facility] Comment on above: Performed By: #### 2 4323-8 #### CHITO SIDDIQI (60901) [facility] ([facility]) [address] [place] [address] CO2 [Moles/Vol] 29 mmol/L Normal 21-32 [facility] Comment on above: Performed By: #### 2 4323-8 #### CHITO SIDDQII (95882) [facility] ([facility]) [address] [place] [address] Creatinine [Mass/Vol] 0.40 mg/dL Low 0.50-1.05 [facility] Comment on above: Performed By: #### 2 4323-8 #### CHITO SIDDIQI (26904) [facility] ([facility]) [address] [place] [address] GFR/1.73 sq M.predicted MDRD (S/P/Bld) [Vol rate/Area] mL/min/{1.73_m2} Normal >60 [facility] Comment on above: Result Comment: Calc ulations of estimated GFR are performed using the 2020 CKD-EPI Study Refit equation without the race variable for the IDMS-Traceable creatinine methods. https://jasn.asnjournals.org/content/early//ASN.078273 3149 Performed By: #### 2 4323-8 #### CHITO SIDDIQI (27155) [facility] ([facility]) [address] [place] [address] Glucose [Mass/Vol] 202 mg/dL High 74-99 [facility] Comment on above: Performed By: #### 2 4323-8 #### CHITO SIDDIQI (81808) [facility] ([facility]) [address] [place] [address] Potassium [Moles/Vol] 3.8 mmol/L Normal 3.5-5.3 [facility] Comment on above: Performed By: #### 2 4323-8 #### CHITO SIDDIQI (42164) [facility] ([facility]) [address] [place] [address] Protein [Mass/Vol] 5.5 g/dL Low 6.4-8.2 [facility] Comment on above: Performed By: #### 2 4323-8 #### CHITO SIDDIQI ([id number]) [facility] ([facility] [place]) [address] [place] [address] Sodium [Moles/Vol] 138 mmol/L Normal 136-145 [facility] Comment on above: Performed By: #### 2 4323-8 #### CHITO SIDDIQI ([id number]) [facility] ([facility] [place]) [address] [place] [address] Urea nitrogen [Mass/Vol] 17 mg/dL Normal 6-23 [facility] Comment on above: Performed By: #### 2 4323-8 #### CHIOT SIDDIQI ([id number]) [facility] ([facility] [place]) [address] [place] [address] Glucose Test strip manual (B ld) [Mass/Vol]on 07-06-2024 Glucose [Mass/Vol] 242 mg/dL High [address] [place] [address] Comment on above: Performed By: #### 2 4323-8 #### CHITO SIDDIQI ([id number]) [facility] ([facility] [place]) [address] [place] [address] Glucose [Mass/Vol] 332 mg/dL High [address] [place] [address] Comment on above: Performed By: #### 2 4323-8 #### CHITO SIDDIQI ([id number]) [facility] ([facility] [place]) [address] [place] [address] Glucose [Mass/Vol] 286 mg/dL High [address] [place] [address] Comment on above: Performed By: #### 2 4323-8 #### CHITO SIDDIQI ([id number]) [facility] ([facility] [place]) [address] [place] [address] Glucose [Mass/Vol] 185 mg/dL High [address] [place] [address] Comment on above: Performed By: #### 2 4323-8 #### CHITO SIDDIQI ([id number]) [facility] ([facility] [place]) [address] [place] [address] Magnesiumon 07-06-2024 Magnesium [Mass/Vol] 1.62 mg/dL Normal 1.60-2.40 [facility] Comment on above: Performed By: #### 2 3-8 #### CHITO SIDDIQI ([id number]) [facility] ([facility] [place]) [address] [place] [address] Manual differential performe d Ql (Bld)on 07-06-2024 Band form neutrophils (Bld) [#/Vol] 0.98 x10*3/uL High 0.00-0.70 [facility] Comment on above: Performed By: #### 2 4322-8 #### CHITO SIDDIQI (88132) [facility] ([facility] [address] [place] [address] Band form neutrophils/100 WBC (Bld) 8.0 % Normal 0.0-5.0 [facility] Comment on above: Performed By: #### 2 4322-8 #### CHITO SIDDIQI (14596) [facility] ([facility]) [address] [place] [address] Basophils (Bld) [#/Vol] 0.00 x10*3/uL Normal 0.00-0.10 [facility] Comment on above: Performed By: #### 2 4322-8 #### CHITO SIDDIQI (63189) [facility] ([facility]) [address] [place] [address] Basophils/100 WBC (Bld) 0.0 % Normal 0.0-2.0 [facility] Comment on above: Performed By: #### 2 4322-8 #### CHITO SIDDIQI (40030) [facility] ([facility]) [address] [place] [address] Cells Counted Total (Bld) [#] 100 Normal [facility] Comment on above: Performed By: #### 2 4322-8 #### CHITO SIDDIQI (47381) [facility] ([facility]) [address] [place] [address] Eosinophils (Bld) [#/Vol] 0.12 x10*3/uL Normal 0.00-0.70 [facility] Comment on above: Performed By: #### 2 4322-8 #### CHITO SIDDIQI (04009) [facility] ([facility]) [address] [place] [address] Eosinophils/100 WBC (Bld) 1.0 % Normal 0.0-6.0 [facility] Comment on above: Performed By: #### 2 4322-8 #### CHITO SIDDIQI (78373) [facility] ([facility]) [address] [place] [address] Lymphocytes (Bld) [#/Vol] 0.61 x10*3/uL Low 1.20-4.80 [facility] Comment on above: Performed By: #### 2 4322-8 #### CHITO SIDDIQI (00000) [facility] ([facility]) [address] [place] [address] Lymphocytes/100 WBC (Bld) 5.0 % Normal 13.0-44.0 [facility] Comment on above: Performed By: #### 2 4322-8 #### CHITO SIDDIQI (43121) [facility] ([facility]) [address] [place] [address] Metamyelocytes (Bld) [#/Vol] 0.12 x10*3/uL Normal 0.00-0.00 [facility] Comment on above: Performed By: #### 2 4322-8 #### CHITO SIDDIQI (05830) [facility] ([facility]) [address] [place] [address] Metamyelocytes/100 WBC (Bld) 1.0 % Normal 0.0-0.0 [facility] Comment on above: Performed By: #### 2 4322-8 #### CHITO SIDDIQI (45690) [facility] ([facility]) [address] [place] [address] Monocytes (Bld) [#/Vol] 0.49 x10*3/uL Normal 0.10-1.00 [facility] Comment on above: Performed By: #### 2 4322-8 #### CHITO SIDDIQI (09991) [facility] ([facility]) [address] [place] [address] Monocytes/100 WBC (Bld) 4.0 % Normal 2.0-10.0 [facility] Comment on above: Performed By: #### 2 432-8 #### CHITO SIDDIQI (63114) [facility] ([facility]) [address] [place] [address] Neutrophils (Bld) [#/Vol] 10.37 x10*3/uL High 1.20-7.70 [facility] Comment on above: Performed By: #### 2 4323-8 #### CHITO SIDDIQI (42922) [facility] ([facility]) [address] [place] [address] Ovalocytes LM Ql (Bld) Few [facility] Comment on above: Performed By: #### 2 4323-8 #### CHITO SIDDIQI (34726) [facility] ([facility]) [address] [place] [id number] Polychromasia LM Ql (Bld) Mild [facility] Comment on above: Performed By: #### 2 432-8 #### CHITO SIDDIQI (57147) [facility] ([facility]) [address] [place] [address] RBC morphology finding Nom (Bld) See Below [facility] Comment on above: Performed By: #### 2 432-8 #### CHITO SIDDIQI (22821) [facility] ([facility]) [address] [place] [id number] Segmented neutrophils (Bld) [#/Vol] 9.39 x10*3/uL High 1.20-7.00 [facility] Comment on above: Performed By: #### 2 4323-8 #### CHITO SIDDIQI (01759) [facility] ([facility]) [address] [place] [id number] Segmented neutrophils/100 WBC (Bld) 77.0 % Normal 40.0-80.0 [facility] Comment on above: Result Comment: Perc ent differential counts (%) should be interpreted in the context of the absolute cell counts (cells/uL). Performed By: #### 2 4323-8 #### CHITO SIDDIQI (16357) [facility] ([facility]) [address] [place] [id number] Variant lymphocytes (Bld) [#/Vol] 0.49 x10*3/uL Normal 0.00-0.50 [facility] Comment on above: Performed By: #### 2 4323-8 #### CHITO SIDDIQI (86120) [facility] ([facility]) [address] [place] [address] Variant lymphocytes/100 WBC (Bld) 4.0 % Normal 0.0-2.0 [facility] Comment on above: Performed By: #### 2 4323-8 #### CHITO SIDDIQI (25062) [facility] ([facility]) [address] [place] [address] CBC W Auto Differential pane l (Bld)on 07-05-2024 Erythrocyte distribution width (RBC) [Ratio] 13.5 % Normal 11.5-14.5 [facility] Comment on above: Order Comment: The p [...] By: #### 1 6362-6 #### CHITO SIDDIQI (34041) [facility] ([facility]) [address] [place] [address] Hematocrit (Bld) [Volume fraction] 34.2 % Low 36.0-46.0 [facility] Comment on above: Order Comment: The p [...] By: #### 1 6362-6 #### CHITO SIDDIQI (38231) [facility] ([facility]) [address] [place] [address] Hemoglobin (Bld) [Mass/Vol] 11.5 g/dL Low 12.0-16.0 [facility] Comment on above: Order Comment: The p [...] By: #### 1 6362-6 #### CHITO SIDDIQI (23580) [facility] ([facility]) [address] [place] [address] Immature granulocytes (Bld) [#/Vol] 1.33 x10*3/uL High 0.00-0.70 [facility] Comment on above: Order Comment: The p [...] By: #### 1 6362-6 #### CHITO SIDDIQI (05900) [facility] ([facility]) [address] [place] [id number] Immature granulocytes/100 WBC (Bld) 12.1 % High 0.0-0.9 [facility] Comment on above: Order Comment: The p [...] By: #### 1 6362-6 #### CHITO SIDDIQI (76080) [facility] ([facility]) [address] [place] [address] MCH (RBC) [Entitic mass] 28.2 pg Normal 26.0-34.0 [facility] Comment on above: Order Comment: The p [...] By: #### 1 6362-6 #### CHITO SIDDIQI 03327) [facility] ([facility]) [address] [place] [address] MCHC (RBC) [Mass/Vol] 33.6 g/dL Normal 32.0-36.0 [facility] Comment on above: Order Comment: The [...] By: #### 1 6362-6 #### CHITO SIDDIQI (12203) [facility] ([facility]) [address] [place] [address] MCV (RBC) [Entitic vol] 84 fL Normal 80-100 [facility] Comment on above: Order Comment: The p [...] By: #### 1 6362-6 #### CHITO SIDDIQI (71159) [facility] ([facility]) [address] [place] [phone] Nucleated RBC/100 WBC (Bld) [Ratio] 0.0 /100 WBCs Normal 0.0-0.0 [facility] Comment on above: Order Comment: The p [...] By: #### 1 6362-6 #### CHITO SIDDIQI (21362) [facility] ([facility]) [address] [place] [address] Platelets (Bld) [#/Vol] 138 x10*3/uL Low 150-450 [facility] Comment on above: Order Comment: The p [...] By: #### 1 6362-6 #### CHITO SIDDIQI (33389) [facility] ([facility]) [address] [place] [address] RBC (Bld) [#/Vol] 4.08 x10*6/uL Normal 4.00-5.20 [facility] Comment on above: Order Comment: The p [...] By: #### 1 6362-6 #### CHITO SIDDIQI (62478) [facility] ([facility]) [address] [place] [address] WBC (Bld) [#/Vol] 11.0 x10*3/uL Normal 4.4-11.3 [facility] Comment on above: Order Comment: The p [...] By: #### 1 6362-6 #### CHITO SIDDIQI (97075) [facility] ([facility]) [address] [place] [address] Comprehensive metabolic 2000 panelon 07-05-2024 Albumin BCP dye [Mass/Vol] 2.5 g/dL Low 3.4-5.0 [facility] Comment on above: Performed By: #### 1 6362-6 #### CHITO SIDDIQI (05089) [facility] ([facility]) [address] [place] [address] ALP [Catalytic activity/Vol] 145 U/L High 33-110 [facility] Comment on above: Performed By: #### 1 6362-6 #### CHITO ISDDIQI (47639) [facility] ([facility]) [address] [place] [address] ALT With P-5'-P [Catalytic activity/Vol] 28 U/L Normal 7-45 [facility] Comment on above: Result Comment: Camila ents treated with Sulfasalazine may generate falsely decreased results for ALT. Performed By: #### 1 6362-6 #### CHITO SDIDIQI (21527) [facility] ([facility]) [address] [place] [address] Anion gap [Moles/Vol] 7 mmol/L Low 10-20 [facility] Comment on above: Performed By: #### 1 6362-6 #### CHITO SIDDIQI (60834) [facility] ([facility]) [address] [place] [address] AST With P-5'-P [Catalytic activity/Vol] 14 U/L Normal 9-39 [facility] Comment on above: Performed By: #### 1 6362-6 #### CHITO SIDDIQI (82090) [facility] ([facility]) [address] [place] [address] Bilirubin [Mass/Vol] 0.5 mg/dL Normal 0.0-1.2 [facility] Comment on above: Performed By: #### 1 6362-6 #### CHITO SIDDIQI (26800) [facility] ([facility]) [address] [place] [address] Calcium [Mass/Vol] 8.5 mg/dL Low 8.6-10.3 [facility] Comment on above: Performed By: #### 1 6362-6 #### CHITO SIDDIQI (78616) [facility] ([facility]) [address] [place] [address] Chloride [Moles/Vol] 106 mmol/L Normal 98-107 [facility] Comment on above: Performed By: #### 1 6362-6 #### CHITO SIDDIQI (29315) [facility] ([facility]) [address] [place] [address] CO2 [Moles/Vol] 29 mmol/L Normal 21-32 [facility] Comment on above: Performed By: #### 1 6362-6 #### CHITO SIDDIQI (42026) [facility] ([facility]) [address] [place] [address] Creatinine [Mass/Vol] 0.45 mg/dL Low 0.50-1.05 [facility] Comment on above: Performed By: #### 1 6362-6 #### CHITO SIDDIQI (86795) [facility] ([facility]) [address] [place] [address] GFR/1.73 sq M.predicted MDRD (S/P/Bld) [Vol rate/Area] mL/min/{1.73_m2} Normal >60 [facility] Comment on above: Result Comment: Calc ulations of estimated GFR are performed using the 2020 CKD-EPI Study Refit equation without the race variable for the IDMS-Traceable creatinine methods. https://jasn.asnjournals.org/content//ASN.756032 6393 Performed By: #### 1 6362-6 #### CHTIO SIDDIQI (16954) [facility] ([facility]) [address] [place] [address] Glucose [Mass/Vol] 170 mg/dL High 74-99 [facility] Comment on above: Performed By: #### 1 6362-6 #### CHITO SIDDIQI (17669) [facility] ([facility]) [address] [place] [address] Potassium [Moles/Vol] 3.4 mmol/L Low 3.5-5.3 [facility] Comment on above: Performed By: #### 1 6362-6 #### CHITO SIDDIQI (33687) [facility] ([facility]) [address] [place] [address] Protein [Mass/Vol] 5.0 g/dL Low 6.4-8.2 [facility] Comment on above: Performed By: #### 1 6362-6 #### CHITO SIDDIQI (89502) [facility] ([facility]) [address] [place] [address] Sodium [Moles/Vol] 139 mmol/L Normal 136-145 [facility] Comment on above: Performed By: #### 1 6362-6 #### CHITO SIDDIQI (36436) [facility] ([facility]) [address] [place] [address] Urea nitrogen [Mass/Vol] 22 mg/dL Normal -23 [facility] Comment on above: Performed By: #### 1 6362-6 #### CHITO SIDDIQI (48709) [facility] ([facility]) [address] [place] [address] Glucose Test strip manual (B ld) [Mass/Vol]on 07-05-2024 Glucose [Mass/Vol] 305 mg/dL High 74-99 [facility] Comment on above: Performed By: #### 2 4323-8 #### CHITO SIDDIQI (55630) [facility] ([facility]) [address] [place] [address] Glucose [Mass/Vol] 281 mg/dL High 74-99 [facility] Comment on above: Performed By: #### 2 4323-8 #### CHITO SIDDIQI (17171) [facility] ([facility]) [address] [place] [id number] Glucose [Mass/Vol] 189 mg/dL High 74-99 [facility] Comment on above: Performed By: #### 2 4323-8 #### CHITO SIDDIQI (63942) [facility] ([facility]) [address] [place] [id number] Glucose [Mass/Vol] 167 mg/dL High 74-99 [facility] Comment on above: Performed By: #### 1 6362-6 #### CHITO SIDDIQI (54156) [facility] ([facility]) [address] [place], [place] [id number] Magnesiumon 07-05-2024 Magnesium [Mass/Vol] 1.57 mg/dL Low 1.60-2.40 [facility] Comment on above: Performed By: #### 1 6362-6 #### CHITO SIDDIQI (71239) [facility] ([facility]) Count includes the [facility] [place] [id number] Manual differential performe d Ql (Bld)on 07-05-2024 Band form neutrophils (Bld) [#/Vol] 0.66 x10*3/uL Normal 0.00-0.70 [facility] Comment on above: Performed By: #### 1 6362-6 #### CHITO SIDDIQI (87900) [facility] ([facility]) [address] [place] [id number] Band form neutrophils/100 WBC (Bld) 6.0 % Normal 0.0-5.0 [facility] Comment on above: Performed By: #### 1 6362-6 #### CHITO SIDDIQI (76657) [facility] ([facility]) [address] [place] [id number] Basophils (Bld) [#/Vol] 0.00 x10*3/uL Normal 0.00-0.10 [facility] Comment on above: Performed By: #### 1 6362-6 #### CHITO SIDDIQI (49212) [facility] ([facility]) [address] [place] [address] Basophils/100 WBC (Bld) 0.0 % Normal 0.0-2.0 [facility] Comment on above: Performed By: #### 1 6362-6 #### CHITO SIDDIQI (47348) [facility] ([facility]) [address] [place] [address] Cells Counted Total (Bld) [#] 100 Normal [facility] Comment on above: Performed By: #### 1 6362-6 #### CHITO SIDDIQI (59251) [facility] ([facility]) [address] [place] [address] Eosinophils (Bld) [#/Vol] 0.00 x10*3/uL Normal 0.00-0.70 [facility] Comment on above: Performed By: #### 1 6362-6 #### CHITO SIDDIQI (29901) [facility] ([facility]) [address] [place] [address] Eosinophils/100 WBC (Bld) 0.0 % Normal 0.0-6.0 [facility] Comment on above: Performed By: #### 1 6362-6 #### CHITO SIDDIQI (93394) [facility] ([facility]) [address] [place] [address] Lymphocytes (Bld) [#/Vol] 0.44 x10*3/uL Low 1.20-4.80 [facility] Comment on above: Performed By: #### 1 6362-6 #### CHITO SIDDIQI (01534) [facility] ([facility]) [address] [place] [address] Lymphocytes/100 WBC (Bld) 4.0 % Normal 13.0-44.0 [facility] Comment on above: Performed By: #### 1 6362-6 #### CHITO SIDDIQI (75859) [facility] ([facility]) [address] [place] [address] Metamyelocytes (Bld) [#/Vol] 0.11 x10*3/uL Normal 0.00-0.00 [facility] Comment on above: Performed By: #### 1 6362-6 #### CHITO SIDDIQI (80833) [facility] ([facility]) [address] [place] [address] Metamyelocytes/100 WBC (Bld) 1.0 % Normal 0.0-0.0 [facility] Comment on above: Performed By: #### 1 6362-6 #### CHITO ISDDIQI (27355) [facility] ([facility]) [address] [place] [id number] Monocytes (Bld) [#/Vol] 0.88 x10*3/uL Normal 0.10-1.00 [facility] Comment on above: Performed By: #### 1 6362-6 #### CHITO SIDDIQI (22153) [facility] ([facility]) [address] [place] [address] Monocytes/100 WBC (Bld) 8.0 % Normal 2.0-10.0 [facility] Comment on above: Performed By: #### 1 6362-6 #### CHITO SIDDIQI (81353) [facility] ([facility]) [address] [place] [address] Neutrophils (Bld) [#/Vol] 9.57 x10*3/uL High 1.20-7.70 [facility] Comment on above: Performed By: #### 1 6362-6 #### CHITO SIDDIQI (70423) [facility] ([facility]) [address] [place] [address] RBC morphology finding Nom (Bld) No significant RBC morphology present Normal [facility] Comment on above: Performed By: #### 1 6362-6 #### CHITO SIDDIQI (07975) [facility] ([facility]) [address] [place] [address] Segmented neutrophils (Bld) [#/Vol] 8.91 x10*3/uL High 1.20-7.00 [facility] Comment on above: Performed By: #### 1 6362-6 #### CHITO SIDDIQI (25743) [facility] ([facility]) [address] [place] [address] Segmented neutrophils/100 WBC (Bld) 81.0 % Normal 40.0-80.0 [facility] Comment on above: Result Comment: Perc ent differential counts (%) should be interpreted in the context of the absolute cell counts (cells/uL). Performed By: #### 1 6362-6 #### CHITO SIDDIQI (08878) [facility] ([facility]) [address] [place] [address] Bacteria identifiedon 2024 Bacteria identified Cx Nom (Bld) Test: Blood Culture Specimen Source: Peripheral Venipuncture Specimen Type: Blood culture Specimen Date: 07/04/20241856 Result Date: 07/09/2024 1201 Result Status: Final result Abnormal: No Resulting Lab: [facility] [address] [place] [address] CULTURE No growth at 4 days - FINAL REPORT [facility] Comment on above: Performed By: #### 2 8143-8 #### CHITO SIDDIQI (75571) [facility] ([facility]) [address] [place] [address] Bacteria identified Cx Nom (Bld) Test: Blood Culture Specimen Source: Peripheral Venipuncture Specimen Type: Blood culture Specimen Date: 07/04/20241856 Result Date: 07/09/2024 1301 Result Status: Final result Abnormal: No Resulting Lab: [facility] [address] [place] [address] CULTURE No growth at 4 days - FINAL REPORT [facility] Comment on above: Performed By: #### 2 4323-8 #### CHITO SIDDIQI (20369) [facility] ([facility]) [address] [place] [address] Basic metabolic 2000 panelon 07-04-2024 Anion gap [Moles/Vol] 10 mmol/L Normal 10-20 [facility] Comment on above: Performed By: #### T HYDS #### CHITO SIDDIQI (74095) [facility] ([facility]) [address] [place] [address] Calcium [Mass/Vol] 8.6 mg/dL Normal 8.6-10.3 [facility] Comment on above: Performed By: #### T HYDS #### CHITO SIDDIQI (97303) [facility] ([facility]) [address] [place] [address] Chloride [Moles/Vol] 107 mmol/L Normal 98-107 [facility] Comment on above: Performed By: #### T HYDS #### CHITO SIDDIQI (85692) [facility] ([facility]) [address] [place] [address] CO2 [Moles/Vol] 27 mmol/L Normal 21-32 [facility] Comment on above: Performed By: #### T HYDS #### CHITO SIDDIQI (66992) [facility] ([facility]) [address] [place] [address] Creatinine [Mass/Vol] 0.54 mg/dL Normal 0.50-1.05 [facility] Comment on above: Performed By: #### T HYDS #### CHITO SIDDIQI (93498) [facility] ([facility]) [address] [place] [address] GFR/1.73 sq M.predicted MDRD (S/P/Bld) [Vol rate/Area] mL/min/{1.73_m2} Normal >60 [facility] Comment on above: Result Comment: Calc ulations of estimated GFR are performed using the 2020 CKD-EPI Study Refit equation without the race variable for the IDMS-Traceable creatinine methods. https://jasn.asnjournals.org/content//ASN.074641 4941 Performed By: #### T HYDS #### CHITO SIDDIQI (95051) [facility] ([facility] [place]) [address] [place] [address] Glucose [Mass/Vol] 214 mg/dL High 74-99 [facility] Comment on above: Performed By: #### T HYDS #### CHITO SIDDIQI (40222) [facility] ([facility] [place]) [address] [place] [address] Potassium [Moles/Vol] 3.7 mmol/L Normal 3.5-5.3 [facility] Comment on above: Performed By: #### T HYDS #### CHITO NEERU ([id number]) [facility] ([facility] [place]) [address] [place] [address] Sodium [Moles/Vol] 140 mmol/L Normal 136-145 [facility] Comment on above: Performed By: #### T HYDS #### CHITO SIDDIQI (70743) [facility] ([facility] [place]) [address] [place] [address] Urea nitrogen [Mass/Vol] 26 mg/dL High 6-23 [facility] Comment on above: Performed By: #### T HYDS #### CHITO SIDDIQI (32207) [facility] ([facility] [place]) [address] [place] [id number] CBC W Auto Differential pane l (Bld)on 07-04-2024 Erythrocyte distribution width (RBC) [Ratio] 13.5 % Normal 11.5-14.5 [facility] Comment on above: Order Comment: The p [...] By: #### 1 6362-6 #### CHITO SIDDIQI (66596) [facility] ([facility] [place]) [address] [place] [address] Hematocrit (Bld) [Volume fraction] 36.7 % Normal 36.0-46.0 [facility] Comment on above: Order Comment: The p [...] By: #### 1 6362-6 #### CHITO SIDDIQI (86109) [facility] ([facility] [place]) [address] [place] [address] Hemoglobin (Bld) [Mass/Vol] 11.6 g/dL Low 12.0-16.0 [facility] Comment on above: Order Comment: The p [...] By: #### 1 6362-6 #### CHITO SIDDIQI (93702) [facility] ([facility] [address] [id number] Immature granulocytes (Bld) [#/Vol] 1.21 x10*3/uL High 0.00-0.70 [facility] Comment on above: Order Comment: The p [...] By: #### 1 6362-6 #### CHITO SIDDIQI (41699) [facility] ([facility]) [address] [place] [address] Immature granulocytes/100 WBC (Bld) 9.1 % High 0.0-0.9 [facility] Comment on above: Order Comment: The p [...] By: #### 1 6362-6 #### CHITO SIDDIQI (58663) [facility] ([facility]) [address] [place] [address] MCH (RBC) [Entitic mass] 26.9 pg Normal 26.0-34.0 [facility] Comment on above: Order Comment: The p [...] By: #### 1 6362-6 #### CHITO SIDDIQI (59370) [facility] ([facility]) [address] [place] [address] MCHC (RBC) [Mass/Vol] 31.6 g/dL Low 32.0-36.0 [facility] Comment on above: Order Comment: The [...] By: #### 1 6362-6 #### CHITO SIDDIQI (94279) [facility] ([facility]) [address] [id number] MCV (RBC) [Entitic vol] 85 fL Normal 80-100 [facility] Comment on above: Order Comment: The p [...] By: #### 1 6362-6 #### CHITO SIDDIQI (80082) [facility] ([facility]) [address] [place] [address] Nucleated RBC/100 WBC (Bld) [Ratio] 0.0 /100 WBCs Normal 0.0-0.0 [facility] Comment on above: Order Comment: The p [...] By: #### 1 6362-6 #### CHITO SIDDIQI (04676) [facility] ([facility]) [address] [place] [address] Platelets (Bld) [#/Vol] 97 x10*3/uL Low 150-450 [facility] Comment on above: Order Comment: The p [...] By: #### 1 6362-6 #### CHITO SIDDIQI 17873) [facility] ([facility]) [address] [place] [address] RBC (Bld) [#/Vol] 4.31 x10*6/uL Normal 4.00-5.20 [facility] Comment on above: Order Comment: The p [...] By: #### 1 6362-6 #### CHITO SIDDIQI (78637) [facility] ([facility] [place]) [address] [id number] WBC (Bld) [#/Vol] 13.3 x10*3/uL High 4.4-11.3 [facility] Comment on above: Order Comment: The p [...] By: #### 1 6362-6 #### CHITO SIDDIQI (37249) [facility] ([facility]) [address] [id number] Glucose Test strip manual (B ld) [Mass/Vol]on 07-04-2024 Glucose [Mass/Vol] 318 mg/dL High [address] [place] [address] Comment on above: Performed By: #### 1 6362-6 #### CHITO SIDDIQI (36578) [facility] ([facility]) [address] [place] [address] Glucose [Mass/Vol] 338 mg/dL High [address] [place] [address] Comment on above: Performed By: #### 1 6362-6 #### CHITO SIDDIQI (76228) [facility] ([facility]) [address] [place] [address] Glucose [Mass/Vol] 219 mg/dL High [address] Comment on above: Performed By: #### T DEMIAN #### CHITO SIDDIQI (71123) [facility] ([facility]) [address] [place] [address] Glucose [Mass/Vol] 158 mg/dL High 74-99 [facility] Comment on above: Performed By: #### T DEMIAN #### CHITO SIDDIQI (28125) [facility] ([facility]) [address] [place] [address] Manual differential performe d Ql (Bld)on 07-04-2024 Basophils (Bld) [#/Vol] 0.00 x10*3/uL Normal 0.00-0.10 [facility] Comment on above: Performed By: #### 1 6362-6 #### CHITO SIDDIQI (72313) [facility] ([facility]) [address] [place] [address] Basophils/100 WBC (Bld) 0.0 % Normal 0.0-2.0 [facility] Comment on above: Performed By: #### 1 6362-6 #### CHITO SIDDIQI (38895) [facility] ([facility]) [address] [place] [address] Cells Counted Total (Bld) [#] 100 Normal [facility] Comment on above: Performed By: #### 1 6362-6 #### CHITO SIDDIQI (80030) [facility] ([facility]) [address] [place] [address] Eosinophils (Bld) [#/Vol] 0.00 x10*3/uL Normal 0.00-0.70 [facility] Comment on above: Performed By: #### 1 6362-6 #### CHITO SIDDIQI (98950) [facility] ([facility]) [address] [place] [address] Eosinophils/100 WBC (Bld) 0.0 % Normal 0.0-6.0 [facility] Comment on above: Performed By: #### 1 6362-6 #### CHITO SIDDIQI (68993) [facility] ([facility]) [address] [place] [address] Lymphocytes (Bld) [#/Vol] 0.67 x10*3/uL Low 1.20-4.80 [facility] Comment on above: Performed By: #### 1 6362-6 #### CHITO SIDDIQI (53486) [facility] ([facility] [place]) [address] [place] [address] Lymphocytes/100 WBC (Bld) 5.0 % Normal 13.0-44.0 [facility] Comment on above: Performed By: #### 1 6362-6 #### CHITO SIDDIQI (39366) [facility] ([facility]) [address] [place] [address] Metamyelocytes (Bld) [#/Vol] 0.27 x10*3/uL Normal 0.00-0.00 [facility] Comment on above: Performed By: #### 1 6362-6 #### CHITO SIDDIQI (77842) [facility] ([facility]) [address] [place] [address] Metamyelocytes/100 WBC (Bld) 2.0 % Normal 0.0-0.0 [facility] Comment on above: Performed By: #### 1 6362-6 #### CHITO SIDDIQI (88453) [facility] ([facility]) [address] [place] [address] Monocytes (Bld) [#/Vol] 0.67 x10*3/uL Normal 0.10-1.00 [facility] Comment on above: Performed By: #### 1 6362-6 #### CHITO SIDDIQI (85675) [facility] ([facility]) [address] [place] [address] Monocytes/100 WBC (Bld) 5.0 % Normal 2.0-10.0 [facility] Comment on above: Performed By: #### 1 6362-6 #### CHITO SIDDIQI (34612) [facility] ([facility]) [address] [place] [address] RBC morphology finding Nom (Bld) No significant RBC morphology present Normal [facility] Comment on above: Performed By: #### 1 6362-6 #### CHITO SIDDIQI (12178) [facility] ([facility]) [address] [place] [address] Segmented neutrophils (Bld) [#/Vol] 11.70 x10*3/uL High 1.20-7.00 [facility] Comment on above: Performed By: #### 1 6362-6 #### CHITO SIDDIQI (41903) [facility] ([facility]) [address] [place] [address] Segmented neutrophils/100 WBC (Bld) 88.0 % Normal 40.0-80.0 [facility] Comment on above: Result Comment: Perc ent differential counts (%) should be interpreted in the context of the absolute cell counts (cells/uL). Performed By: #### 1 6362-6 #### CHITO SIDDIQI (35039) [facility] ([facility]) [address] [place] [id number] US RENAL COMPLETEon 07-05-19 US RENAL COMPLETE Interpreted By: Cordelia Shukla, STUDY: US RENAL COMPLETE; 07/04/2024 5:56 pm INDICATION: Signs/Symptoms:4.1 mm calculus at the left UVJ with mild associated hydroureteronephrosis on admission CT; WBC remains elevated. Follow-up obstructive uropathy. COMPARISON: None. ACCESSION NUMBER(S): [id number] ORDERING CLINICIAN: TUAN TOWNSEND TECHNIQUE: Grayscale and [...] Cordelia Shukla 07/05/2024 5:30 AM Dictation workstation: [id number] Normal [facility] Calcidiolon 07-03-2024 25-hydroxyvitamin D3 [Mass/Vol] 21 ng/mL Low 30-100 [facility] Comment on above: Order Comment: TSH t esting is performed using different testing methodology at [facility] than at other [facility]. Direct result comparisons should only be made within the same method. Performed By: #### T HYDS #### CHITO SIDDIQI (81662) [facility] ([facility]) [address] [place] [address] Cobalaminson 07-03-2024 Cobalamin (Vitamin B12) [Mass/Vol] 706 pg/mL Normal 211-911 [facility] Comment on above: Performed By: #### T HYDS #### CHITO SIDDIQI (87845) [facility] ([facility]) [address] [place] [address] Folateon 07-03-2024 Folate [Mass/Vol] 6.2 ng/mL Normal >5.0 [facility] Comment on above: Order Comment: TSH t esting is performed using different testing methodology at [facility] than at other [facility]. Direct result comparisons should only be made within the same method. Performed By: #### T HYDS #### CHITO SIDDIQI (41126) [facility] ([facility]) [address] [id number] Glucose Test strip manual (B ld) [Mass/Vol]on 07-03-2024 Glucose [Mass/Vol] 328 mg/dL High 74-99 [facility] Comment on above: Performed By: #### T HYDS #### CHITO SIDDIQI (54112) [facility] ([facility]) [address] [place] [address] Glucose [Mass/Vol] 253 mg/dL High 74-99 [facility] Comment on above: Performed By: #### T HYDS #### CHITO SIDDIQI (22375) [facility] ([facility]) [address] [place] [address] Glucose [Mass/Vol] 108 mg/dL High [address] Comment on above: Performed By: #### T JADENS #### CHITO SIDDIQI (80981) [facility] ([facility]) [address] [place] [address] Glucose [Mass/Vol] 78 mg/dL Normal 74-99 [facility] Comment on above: Performed By: #### T JADENS #### CHITO SIDDIQI (58117) [facility] ([facility]) [address] [place] [address] Glucose [Mass/Vol] 99 mg/dL Normal -[address] [place] [address] Comment on above: Performed By: #### 2 524-7 #### CHITO SIDDIQI (55958) [facility] ([facility]) [address] [place] [address] Glucose [Mass/Vol] 88 mg/dL Normal -[address] [place] [address] Comment on above: Performed By: #### 2 524-7 #### CHITO SIDDIQI (89411) [facility] ([facility]) [address] [place] [address] Glucose [Mass/Vol] 99 mg/dL Normal [address] [place] [address] Comment on above: Performed By: #### 2 524-7 #### CHITO SIDDIQI (20499) [facility] ([facility]) [address] [place] [address] Glucose [Mass/Vol] 130 mg/dL High 74[address] [place] [address] Comment on above: Performed By: #### 2 524-7 #### CHITO SIDDIQI (69930) [facility] ([facility]) [address] [place] [address] CBC panel Auto (Bld)on 07-02 Erythrocyte distribution width (RBC) [Ratio] 13.9 % Normal 11.5-14.5 [facility] Comment on above: Performed By: #### Joana OSBORN #### CHITO SIDDIQI (44302) [facility] ([facility]) [address] [place] [address] Hematocrit (Bld) [Volume fraction] 33.6 % Low 36.0-46.0 [facility] Comment on above: Performed By: #### D RUBL #### CHITO SIDDIQI (23380) [facility] ([facility]) [address] [place] [address] Hemoglobin (Bld) [Mass/Vol] 10.9 g/dL Low 12.0-16.0 [facility] Comment on above: Performed By: #### D RUBL #### CHITO SIDDIQI (67994) [facility] ([facility]) [address] [place] [address] MCH (RBC) [Entitic mass] 28.0 pg Normal 26.0-34.0 [facility] Comment on above: Performed By: #### D RUBL #### CHITO SIDDIQI (37874) [facility] ([facility]) [address] [place] [address] MCHC (RBC) [Mass/Vol] 32.4 g/dL Normal 32.0-36.0 [facility] Comment on above: Performed By: #### D RUBL #### CHITO SIDDIQI (85577) [facility] ([facility]) [address] [place] [address] MCV (RBC) [Entitic vol] 86 fL Normal 80-100 [facility] Comment on above: Performed By: #### D RUBL #### CHITO SIDDIQI (83501) [facility] ([facility]) [address] [place] [address] Nucleated RBC/100 WBC (Bld) [Ratio] 0.0 /100 WBCs Normal 0.0-0.0 [facility] Comment on above: Performed By: #### D RUBL #### CHITO SIDDIQI (07300) [facility] ([facility]) [address] [place] [address] Platelets (Bld) [#/Vol] 67 x10*3/uL Low 150-450 [facility] Comment on above: Performed By: #### D RUBL #### CHITO SIDDIQI (04132) [facility] ([facility]) [address] [place] [address] RBC (Bld) [#/Vol] 3.89 x10*6/uL Low 4.00-5.20 [facility] Comment on above: Performed By: #### D RUBL #### CHITO SIDDIQI (97556) [facility] ([facility]) [address] [place] [address] WBC (Bld) [#/Vol] 13.4 x10*3/uL High 4.4-11.3 [facility] Comment on above: Performed By: #### Joana RUBL #### CHITO SIDDIQI (91300) [facility] ([facility]) [address] [place] [address] Glucose Test strip manual (B ld) [Mass/Vol]on 07-02-2024 Glucose [Mass/Vol] 153 mg/dL High [address] [place] [address] Comment on above: Performed By: #### 2 524-7 #### CHITO SIDDIQI (09545) [facility] ([facility]) [address] [place] [address] Glucose [Mass/Vol] 150 mg/dL High [address] [place] [address] Comment on above: Performed By: #### 2 524-7 #### CHITO SIDDIQI (83514) [facility] ([facility]) [address] [place] [address] Glucose [Mass/Vol] 174 mg/dL High [address] [place] [address] Comment on above: Performed By: #### 2 524-7 #### CHITO SIDDIQI (84057) [facility] ([facility]) [address] [place] [address] Glucose [Mass/Vol] 204 mg/dL High [address] [place] [address] Comment on above: Performed By: #### 2 524-7 #### CHITO SIDDIQI (35232) [facility] ([facility]) [address] [place] [address] Glucose [Mass/Vol] 214 mg/dL [address] Comment on above: Performed By: #### 2 524-7 #### CHITO SIDDIQI (52932) [facility] ([facility]) [address] [place] [address] Glucose [Mass/Vol] 197 mg/dL High [address] [place] [address] Comment on above: Performed By: #### 2 524-7 #### CHITO SIDDIQI (84462) [facility] ([facility]) [address] [place] [address] Glucose [Mass/Vol] 162 mg/dL [address] Comment on above: Performed By: #### D RUBL #### CHITO SIDDIQI (16163) [facility] ([facility]) [address] [place] [address] Glucose [Mass/Vol] 165 mg/dL [address] Comment on above: Performed By: #### D RUBL #### CHITO SIDDIQI (62374) [facility] ([facility]) [address] [place] [address] Glucose [Mass/Vol] 157 mg/dL [address] Comment on above: Performed By: #### D RUBL #### CHITO SIDDIQI (16128) [facility] ([facility]) [address] [place] [address] Glucose [Mass/Vol] 172 mg/dL [address] Comment on above: Performed By: #### D RUBL #### CHITO SIDDIQI (17714) [facility] ([facility]) [address] [place] [address] Glucose [Mass/Vol] 198 mg/dL [address] Comment on above: Performed By: #### D RUBL #### CHITO SIDDIQI (98351) [facility] ([facility]) [address] [place] [address] Glucose [Mass/Vol] 231 mg/dL High [address] [place] [address] Comment on above: Performed By: #### D RUBL #### CHITO SIDDIQI (97381) [facility] ([facility]) [address] [place] [address] Glucose [Mass/Vol] 193 mg/dL High [address] [place] [address] Comment on above: Performed By: #### D RUBL #### CHITO SIDDIQI (61883) [facility] ([facility]) [address] [place] [address] Glucose [Mass/Vol] 191 mg/dL High [address] [place] [address] Comment on above: Performed By: #### D RUBL #### CHITO SIDDIQI (74111) [facility] ([facility]) [address] [place] [address] Glucose [Mass/Vol] 215 mg/dL High [address] [place] [address] Comment on above: Performed By: #### 5 7021-8 #### CHITO SIDDIQI (58877) [facility] ([facility]) [address] [place] [address] Glucose [Mass/Vol] 217 mg/dL High [address] [place] [address] Comment on above: Performed By: #### 5 7021-8 #### CHITO SIDDIQI (59068) [facility] ([facility]) [address] [place] [address] Glucose [Mass/Vol] 245 mg/dL High [address] [place] [address] Comment on above: Performed By: #### 5 7021-8 #### CHITO SIDDIQI (60952) [facility] ([facility]) [address] [place] [address] Renal function 2000 panelon 07-02-2024 Albumin BCP dye [Mass/Vol] 2.7 g/dL Low 3.4-5.0 [facility] Comment on above: Performed By: #### D RUBL #### CHITO SIDDIQI (89129) [facility] ([facility]) [address] [place] [address] Anion gap [Moles/Vol] 9 mmol/L Low 10-20 [facility] Comment on above: Performed By: #### D RUBL #### CHITO SIDDIQI (89328) [facility] ([facility]) [address] [place] [address] Calcium [Mass/Vol] 8.8 mg/dL Normal 8.6-10.3 [facility] Comment on above: Performed By: #### D RUBL #### CHITO SIDDIQI (38858) [facility] ([facility]) [address] [place] [address] Chloride [Moles/Vol] 109 mmol/L High 98-107 [facility] Comment on above: Performed By: #### D RUBL #### CHITO SIDDIQI (62190) [facility] ([facility]) [address] [place] [address] CO2 [Moles/Vol] 25 mmol/L Normal 21-32 [facility] Comment on above: Performed By: #### D RUBL #### CHITO SIDDIQI (96677) [facility] ([facility]) [address] [place] [address] Creatinine [Mass/Vol] 0.81 mg/dL Normal 0.50-1.05 [facility] Comment on above: Performed By: #### D RUBL #### CHITO SIDDIQI (28872) [facility] ([facility]) [address] [place] [address] Glomerular filtration rate/1.73 sq M.predicted 87 mL/min/1.73m*2 Normal >60 [facility] Comment on above: Result Comment: Calc ulations of estimated GFR are performed using the 2020 CKD-EPI Study Refit equation without the race variable for the IDMS-Traceable creatinine methods. https://jasn.asnjournals.org/content/early//ASN.075301 6045 Performed By: #### D RUBL #### CHITO SIDDIQI (19427) [facility] ([facility]) [address] [place] [address] Glucose [Mass/Vol] 212 mg/dL High 74-99 [facility] Comment on above: Performed By: #### D RUBL #### CHITO SIDDIQI (50954) [facility] ([facility]) [address] [place] [address] Phosphate [Mass/Vol] 1.9 mg/dL Low 2.5-4.9 [facility] Comment on above: Result Comment: The performance characteristics of phosphorus testing in heparinized plasma have been validated by the individual laboratory site where testing is performed. Testing on heparinized plasma is not approved by the FDA; however, such approval is not necessary. Performed By: #### Joana RUBL #### CHITO SIDDIQI (38542) [facility] ([facility]) [address] [place] [address] Potassium [Moles/Vol] 3.9 mmol/L Normal 3.5-5.3 [facility] Comment on above: Performed By: #### D RUBL #### CHITO SIDDIQI (20947) [facility] ([facility]) [address] [place] [address] Sodium [Moles/Vol] 139 mmol/L Normal 136-145 [facility] Comment on above: Performed By: #### D RUBL #### CHITO SIDDIQI (05632) [facility] ([facility]) [address] [place] [address] Urea nitrogen [Mass/Vol] 49 mg/dL High 6-23 [facility] Comment on above: Performed By: #### D RUBL #### CHITO SIDDIQI (83264) [facility] ([facility]) [address] [place] [address] CBC panel Auto (Bld)on 07-01 Erythrocyte distribution width (RBC) [Ratio] 14.0 % Normal 11.5-14.5 [facility] Comment on above: Performed By: #### 5 0957-0 #### CHITO SIDDIQI (26638) [facility] ([facility]) [address] [place] [address] Hematocrit (Bld) [Volume fraction] 33.6 % Low 36.0-46.0 [facility] Comment on above: Performed By: #### 5 0957-0 #### CHITO SIDDIQI (59456) [facility] ([facility]) [address] [place] [address] Hemoglobin (Bld) [Mass/Vol] 11.0 g/dL Low 12.0-16.0 [facility] Comment on above: Performed By: #### 5 57-0 #### CHITO SIDDIQI (87137) [facility] ([facility]) [address] [place] [address] MCH (RBC) [Entitic mass] 28.1 pg Normal 26.0-34.0 [facility] Comment on above: Performed By: #### 5 57-0 #### CHITO SIDDIQI ([id number]) [facility] ([facility] [place]) [address] [place] [address] MCHC (RBC) [Mass/Vol] 32.7 g/dL Normal 32.0-36.0 [facility] Comment on above: Performed By: #### 5 57-0 #### CHITO SIDDIQI ([id number]) [facility] ([facility] [place]) [address] [place] [id number] MCV (RBC) [Entitic vol] 86 fL Normal 80-100 [facility] Comment on above: Performed By: #### 5 57-0 #### CHITO SIDDIQI ([id number]) [facility] ([facility] [place]) [address] [place] [id number] Nucleated RBC/100 WBC (Bld) [Ratio] 0.0 /100 WBCs Normal 0.0-0.0 [facility] Comment on above: Performed By: #### 5 57-0 #### CHITO SIDDIQI ([id number]) [facility] ([facility] [place]) [address] [place] [id number] Platelets (Bld) [#/Vol] 50 x10*3/uL Low 150-450 [facility] Comment on above: Performed By: #### 5 57-0 #### CHITO SIDDIQI ([id number]) [facility] ([facility] [place]) [address] [place] [address] RBC (Bld) [#/Vol] 3.92 x10*6/uL Low 4.00-5.20 [facility] Comment on above: Performed By: #### 5 0957-0 #### CHITO SIDDIQI (71052) [facility] ([facility] [place]) [address] [place] [address] WBC (Bld) [#/Vol] 10.7 x10*3/uL Normal 4.4-11.3 [facility] Comment on above: Performed By: #### 5 0957-0 #### CHITO SIDDIQI (08040) [facility] ([facility]) [address] [place] [address] Glucose Test strip manual (B ld) [Mass/Vol]on 07-01-2024 Glucose [Mass/Vol] 361 mg/dL [address] Comment on above: Performed By: #### 5 7021-8 #### CHITO SIDDIQI (62775) [facility] ([facility]) [address] [place] [address] Glucose [Mass/Vol] 362 mg/dL [address] Comment on above: Performed By: #### 5 7021-8 #### CHITO SIDDIQI (90313) [facility] ([facility]) [address] [place] [address] Glucose [Mass/Vol] 365 mg/dL [address] Comment on above: Performed By: #### 5 7021-8 #### CHITO SIDDIQI (88755) [facility] ([facility]) [address] [place] [address] Glucose [Mass/Vol] 395 mg/dL High [address] [place] [address] Comment on above: Performed By: #### 5 7021-8 #### CHITO SIDDIQI (56705) [facility] ([facility]) [address] [place] [address] Glucose [Mass/Vol] 419 mg/dL High [address] [place] [address] Comment on above: Performed By: #### 5 7021-8 #### CHITO SIDDIQI (98733) [facility] ([facility]) [address] [place] [address] Glucose [Mass/Vol] 480 mg/dL High [address] [place] [address] Comment on above: Result Comment: MD Pina otified Performed By: #### 5 7021-8 #### CHITO SIDDIQI (00135) [facility] ([facility]) [address] [place] [address] Glucose [Mass/Vol] 453 mg/dL High [address] [place] [address] Comment on above: Result Comment: GOLD Pina OTIFIED Performed By: #### 5 0957-0 #### CHITO SIDDIQI (88722) [facility] ([facility]) [address] [place] [address] Glucose [Mass/Vol] 465 mg/dL High [address] [place] [address] Comment on above: Result Comment: GOLD Pina OTIFIED Performed By: #### 5 0957-0 #### CHITO SIDDIQI (22121) [facility] ([facility]) [address] [place] [address] Glucose [Mass/Vol] 377 mg/dL High [address] [place] [address] Comment on above: Performed By: #### 5 0957-0 #### CHITO SIDDIQI (06551) [facility] ([facility]) [address] [place] [address] Glucose [Mass/Vol] 390 mg/dL High [address] [place] [address] Comment on above: Performed By: #### 5 0957-0 #### CHITO SIDDIQI (99945) [facility] ([facility]) [address] [place] [address] Renal function 2000 panelon 07-01-2024 Albumin BCP dye [Mass/Vol] 2.7 g/dL Low 3.4-5.0 [facility] Comment on above: Performed By: #### 5 7021-8 #### CHITO SIDDIQI (25191) [facility] ([facility]) [address] [place] [address] Anion gap [Moles/Vol] 11 mmol/L Normal 10-20 [facility] Comment on above: Performed By: #### 5 7021-8 #### CHITO SIDDIQI (52878) [facility] ([facility]) [address] [place] [address] Calcium [Mass/Vol] 8.7 mg/dL Normal 8.6-10.3 [facility] Comment on above: Performed By: #### 5 7021-8 #### CHITO SIDDIQI (29773) [facility] ([facility]) [address] [place] [address] Chloride [Moles/Vol] 103 mmol/L Normal 98-107 [facility] Comment on above: Performed By: #### 5 7021-8 #### CHITO SIDDIQI (97087) [facility] ([facility]) [address] [place] [address] CO2 [Moles/Vol] 23 mmol/L Normal 21-32 [facility] Comment on above: Performed By: #### 5 7021-8 #### CHITO SIDDIQI (20578) [facility] ([facility]) [address] [place] [address] Creatinine [Mass/Vol] 0.96 mg/dL Normal 0.50-1.05 [facility] Comment on above: Performed By: #### 5 7021-8 #### CHITO SIDDIQI (33649) [facility] ([facility]) [address] [place] [address] Glomerular filtration rate/1.73 sq M.predicted 71 mL/min/1.73m*2 Normal >60 [facility] Comment on above: Result Comment: Calc ulations of estimated GFR are performed using the 2020 CKD-EPI Study Refit equation without the race variable for the IDMS-Traceable creatinine methods. https://jasn.asnjournals.org/content//ASN.571927 0455 Performed By: #### 5 7021-8 #### CHITO SIDDIQI (98304) [facility] ([facility]) [address] [place] [address] Glucose [Mass/Vol] 439 mg/dL High 74-99 [facility] Comment on above: Performed By: #### 5 7021-8 #### CHITO SIDDIQI (46702) [facility] ([facility]) [address] [place] [address] Phosphate [Mass/Vol] 1.6 mg/dL Low 2.5-4.9 [facility] Comment on above: Result Comment: The performance characteristics of phosphorus testing in heparinized plasma have been validated by the individual laboratory site where testing is performed. Testing on heparinized plasma is not approved by the FDA; however, such approval is not necessary. Performed By: #### 5 7021-8 #### CHITO SIDDIQI (92956) [facility] ([facility]) [address] [place] [address] Potassium [Moles/Vol] 4.1 mmol/L Normal 3.5-5.3 [facility] Comment on above: Performed By: #### 5 7021-8 #### CHITO SIDDIQI (50066) [facility] ([facility]) [address] [place] [address] Sodium [Moles/Vol] 133 mmol/L Low 136-145 [facility] Comment on above: Performed By: #### 5 7021-8 #### CHITO SIDDIQI (04358) [facility] ([facility]) [address] [place] [address] Urea nitrogen [Mass/Vol] 51 mg/dL High 6-23 [facility] Comment on above: Performed By: #### 5 7021-8 #### CHITO SIDDIQI (00566) [facility] ([facility]) [address] [place] [address] Albumin BCP dye [Mass/Vol] 2.7 g/dL Low 3.4-5.0 [facility] Comment on above: Performed By: #### 5 0957-0 #### CHITO SIDDIQI (68749) [facility] ([facility]) [address] [place] [address] Anion gap [Moles/Vol] 8 mmol/L Low 10-20 [facility] Comment on above: Performed By: #### 5 0957-0 #### CHITO SIDDIQI (76665) [facility] ([facility]) [address] [place] [address] Calcium [Mass/Vol] 8.1 mg/dL Low 8.6-10.3 [facility] Comment on above: Performed By: #### 5 0957-0 #### CHITO SIDDIQI (77194) [facility] ([facility]) [address] [place] [address] Chloride [Moles/Vol] 106 mmol/L Normal 98-107 [facility] Comment on above: Performed By: #### 5 0957-0 #### CHITO SIDDIQI (96343) [facility] ([facility]) [address] [place] [address] CO2 [Moles/Vol] 24 mmol/L Normal 21-32 [facility] Comment on above: Performed By: #### 5 0957-0 #### CHITO SIDDIQI (25969) [facility] ([facility]) [address] [place] [address] Creatinine [Mass/Vol] 0.73 mg/dL Normal 0.50-1.05 [facility] Comment on above: Performed By: #### 5 0957-0 #### CHITO SIDDIQI (83420) [facility] ([facility]) [address] [place] [address] GFR/1.73 sq M.predicted MDRD (S/P/Bld) [Vol rate/Area] mL/min/{1.73_m2} Normal >60 [facility] Comment on above: Result Comment: Calc ulations of estimated GFR are performed using the 2020 CKD-EPI Study Refit equation without the race variable for the IDMS-Traceable creatinine methods. https://jasn.asnjournals.org/content/early//ASN.287766 7047 Performed By: #### 5 0957-0 #### CHITO SIDDIQI (12094) [facility] ([facility]) [address] [place] [address] Glucose [Mass/Vol] 408 mg/dL High 74-99 [facility] Comment on above: Performed By: #### 5 0957-0 #### CHITO SIDDIQI (49044) [facility] ([facility]) [address] [place] [address] Phosphate [Mass/Vol] 2.8 mg/dL Normal 2.5-4.9 [facility] Comment on above: Result Comment: The performance characteristics of phosphorus testing in heparinized plasma have been validated by the individual laboratory site where testing is performed. Testing on heparinized plasma is not approved by the FDA; however, such approval is not necessary. Performed By: #### 5 0957-0 #### CHITO SIDDIQI (92117) [facility] ([facility]) [address] [place] [address] Potassium [Moles/Vol] 4.4 mmol/L Normal 3.5-5.3 [facility] Comment on above: Performed By: #### 5 0957-0 #### CHITO SIDDIQI (70511) [facility] ([facility]) [address] [place] [address] Sodium [Moles/Vol] 134 mmol/L Low 136-145 [facility] Comment on above: Performed By: #### 5 0957-0 #### CHITO SIDDIQI (48926) [facility] ([facility]) [address] [place] [address] Urea nitrogen [Mass/Vol] 42 mg/dL High 6-23 [facility] Comment on above: Performed By: #### 5 0957-0 #### CHITO SIDDIQI (37310) [facility] ([facility]) [address] [place] [address] CBC panel Auto (Bld)on 06-30 Erythrocyte distribution width (RBC) [Ratio] 13.7 % Normal 11.5-14.5 [facility] Comment on above: Performed By: #### 9 5423-0 #### CHITO SIDDIQI (78916) [facility] ([facility]) [address] [place] [address] Hematocrit (Bld) [Volume fraction] 35.6 % Low 36.0-46.0 [facility] Comment on above: Performed By: #### 9 5423-0 #### CHITO SIDDIQI (04968) [facility] ([facility]) [address] [place] [address] Hemoglobin (Bld) [Mass/Vol] 11.8 g/dL Low 12.0-16.0 [facility] Comment on above: Performed By: #### 9 5423-0 #### CHITO SIDDIQI (88508) [facility] ([facility]) [address] [place] [address] MCH (RBC) [Entitic mass] 28.4 pg Normal 26.0-34.0 [facility] Comment on above: Performed By: #### 9 5423-0 #### CHITO SIDDIQI (63898) [facility] ([facility]) [address] [place] [address] MCHC (RBC) [Mass/Vol] 33.1 g/dL Normal 32.0-36.0 [facility] Comment on above: Performed By: #### 9 5423-0 #### CHITO SIDDIQI (97516) [facility] ([facility]) [address] [place] [address] MCV (RBC) [Entitic vol] 86 fL Normal 80-100 [facility] Comment on above: Performed By: #### 9 5423-0 #### CHITO SIDDIQI (36565) [facility] ([facility]) [address] [place] [id number] Nucleated RBC/100 WBC (Bld) [Ratio] 0.0 /100 WBCs Normal 0.0-0.0 [facility] Comment on above: Performed By: #### 9 5423-0 #### CHITO SIDDIQI (67570) [facility] ([facility]) [address] [place] [address] Platelets (Bld) [#/Vol] 58 x10*3/uL Low 150-450 [facility] Comment on above: Performed By: #### 9 5423-0 #### CHITO SIDDIQI (86508) [facility] ([facility]) [address] [place] [address] RBC (Bld) [#/Vol] 4.16 x10*6/uL Normal 4.00-5.20 [facility] Comment on above: Performed By: #### 9 5423-0 #### CHITO SIDDIQI (54313) [facility] ([facility]) [address] [place] [address] WBC (Bld) [#/Vol] 8.6 x10*3/uL Normal 4.4-11.3 [facility] Comment on above: Performed By: #### 9 5423-0 #### CHITO SIDDIQI (95601) [facility] ([facility]) [address] [place] [address] Gas and Carbon monoxide and Electrolytes panel (BldA)on 06-30-2024 Anion gap 4 (BldA) [Moles/Vol] 12 mmo/L Normal 10-25 [facility] Comment on above: Performed By: #### 9 5423-0 #### CHITO SIDDIQI (66739) [facility] ([facility]) [address] [place] [id number] Base excess Calc (Bld) [Moles/Vol] -3.8000 mmol/L Low -2.0-3.0 [facility] Comment on above: Performed By: #### 9 5423-0 #### CHITO SIDDIQI (61846) [facility] ([facility]) [address] [place], [place] [address] Calcium.ionized (BldA) [Moles/Vol] 1.17 mmol/L Normal 1.10-1.33 [facility] Comment on above: Performed By: #### 9 5423-0 #### CHITO SIDDIQI (55763) [facility] ([facility]) [address] [place] [address] Chloride (BldA) [Moles/Vol] 102 mmol/L Normal 98-107 [facility] Comment on above: Performed By: #### 9 5423-0 #### CHITO SIDDIQI (53176) [facility] ([facility]) [address] [place] [address] CO2 (Bld) [Partial pressure] 35 mm Hg Low 38-42 [facility] Comment on above: Performed By: #### 9 5423-0 #### CHITO SIDDIQI (11937) [facility] ([facility]) [address] [place] [id number] Glucose [Mass/Vol] 318 mg/dL High 74-99 [facility] Comment on above: Performed By: #### 9 5423-0 #### CHITO SIDDIQI (31084) [facility] ([facility]) [address] [place] [id number] HCO3 (Bld) [Moles/Vol] 20.7 mmol/L Low 22.0-26.0 [facility] Comment on above: Performed By: #### 9 5423-0 #### CHITO SIDDIQI (17179) [facility] ([facility]) [address] [place] [address] Hematocrit Est (Bld) [Volume fraction] 39.0 % Normal 36.0-46.0 [facility] Comment on above: Performed By: #### 9 5423-0 #### CHITO SIDDIQI (58187) [facility] ([facility]) [address] [place] [address] Hemoglobin (Bld) [Mass/Vol] 13.0 g/dL Normal 12.0-16.0 [facility] Comment on above: Performed By: #### 9 5423-0 #### CHITO SIDDIQI (60153) [facility] ([facility]) [address] [place] [address] Inhaled oxygen concentration 28 % Normal [facility] Comment on above: Performed By: #### 9 5423-0 #### CHITO SIDDIQI (01619) [facility] ([facility]) [address] [place] [address] Lactate (BldA) [Moles/Vol] 2.7 mmol/L High 0.4-2.0 [facility] Comment on above: Performed By: #### 9 5423-0 #### CHITO SIDDIQI (19515) [facility] ([facility]) [address] [place] [phone] Oxygen (Bld) [Partial pressure] 86 mm Hg Normal 85-95 [facility] Comment on above: Performed By: #### 9 5423-0 #### CHITO SIDDIQI (68945) [facility] ([facility]) [address] [place] [phone] Oxyhemoglobin (BldA) [Mass fraction] 96.3 % Normal 94.0-98.0 [facility] Comment on above: Performed By: #### 9 5423-0 #### CHITO SIDDIQI (11614) [facility] ([facility]) [address] [place] [phone] pH (Bld) 7.38 [pH] Normal 7.38-7.42 [facility] Comment on above: Performed By: #### 9 5423-0 #### CHITO SIDDIQI (85780) [facility] ([facility]) [address] [place] [address] Potassium (BldA) [Moles/Vol] 3.6 mmol/L Normal 3.5-5.3 [facility] Comment on above: Performed By: #### 9 5423-0 #### CHITO SIDDIQI (40547) [facility] ([facility]) [address] [place] [address] Sodium (BldA) [Moles/Vol] 131 mmol/L Low 136-145 [facility] Comment on above: Performed By: #### 9 5423-0 #### CHITO SIDDIQI (31104) [facility] ([facility]) [address] [place] [phone] Glucose Test strip manual (B ld) [Mass/Vol]on 06-30-2024 Glucose [Mass/Vol] 339 mg/dL High 74-99 [facility] Comment on above: Performed By: #### 5 0957-0 #### CHITO SIDDIQI (87666) [facility] ([facility]) [address] [place] [address] Glucose [Mass/Vol] 322 mg/dL High 74-99 [facility] Comment on above: Performed By: #### 5 0957-0 #### CHITO SIDDIQI (17645) [facility] ([facility]) [address] [place] [address] Glucose [Mass/Vol] 283 mg/dL High 74-99 [facility] Comment on above: Performed By: #### 9 5423-0 #### CHITO SIDDIQI (03237) [facility] ([facility]) [address] [place] [address] Lactateon 06-30-2024 Lactate [Moles/Vol] 3.4 mmol/L High 0.4-2.0 [facility] Comment on above: Order Comment: This assay is an FDA-cleared, in vitro diagnostic nucleic acid amplification test for the qualitative detection and differentiation of SARS CoV-2/ Influenza A/B from nasopharyngeal specimens collected from individuals with signs and symptoms of respiratory tract infections, and has been validated for use at [facility]. Negative results do not preclude COVID-19/ Influenza A/B infections and should not be used as the sole basis for diagnosis, treatment, or other management decisions. Testing for SARS CoV-2 is recommended only for patients who meet current clinical and/or epidemiological criteria defined by federal, state, or local public health directives. Performed By: #### 9 5423-0 #### CHITO SIDDIQI (71225) [facility] ([facility]) [address] [place], [place] [address] Renal function 2000 panelon 06-30-2024 Albumin BCP dye [Mass/Vol] 2.7 g/dL Low 3.4-5.0 [facility] Comment on above: Performed By: #### 9 5423-0 #### CHITO SIDDIQI (13785) [facility] ([facility]) [address] [place] [address] Anion gap [Moles/Vol] 13 mmol/L Normal 10-20 [facility] Comment on above: Performed By: #### 9 5423-0 #### CHITO SIDDIQI (76805) [facility] ([facility]) [address] [place] [address] Calcium [Mass/Vol] 8.0 mg/dL Low 8.6-10.3 [facility] Comment on above: Performed By: #### 9 5423-0 #### CHITO SIDDIQI (74299) [facility] ([facility]) [address] [place] [address] Chloride [Moles/Vol] 104 mmol/L Normal 98-107 [facility] Comment on above: Performed By: #### 9 5423-0 #### CHITO SIDDIQI (76115) [facility] ([facility]) [address] [place] [address] CO2 [Moles/Vol] 21 mmol/L Normal 21-32 [facility] Comment on above: Performed By: #### 9 5423-0 #### CHITO SIDDIQI (00988) [facility] ([facility]) [address] [place] [address] Creatinine [Mass/Vol] 1.15 mg/dL High 0.50-1.05 [facility] Comment on above: Performed By: #### 9 5423-0 #### CHITO SIDDIQI (58000) [facility] ([facility]) [address] [place] [address] Glomerular filtration rate/1.73 sq M.predicted 57 mL/min/1.73m*2 Low >60 [facility] Comment on above: Result Comment: Calc ulations of estimated GFR are performed using the 2020 CKD-EPI Study Refit equation without the race variable for the IDMS-Traceable creatinine methods. https://jasn.asnjournals.org/content//ASN.183592 3583 Performed By: #### 9 5423-0 #### CHITO SIDDIQI (65497) [facility] ([facility]) [address] [place] [address] Glucose [Mass/Vol] 234 mg/dL High 74-99 [facility] Comment on above: Performed By: #### 9 5423-0 #### CHITO SIDDIQI (02748) [facility] ([facility]) [address] [place] [address] Phosphate [Mass/Vol] 5.4 mg/dL High 2.5-4.9 [facility] Comment on above: Result Comment: The performance characteristics of phosphorus testing in heparinized plasma have been validated by the individual laboratory site where testing is performed. Testing on heparinized plasma is not approved by the FDA; however, such approval is not necessary. Performed By: #### 9 5423-0 #### CHITO SIDDIQI (14558) [facility] ([facility]) [address] [place] [address] Potassium [Moles/Vol] 4.4 mmol/L Normal 3.5-5.3 [facility] Comment on above: Performed By: #### 9 5423-0 #### CHITO SIDDIQI (28997) [facility] ([facility]) [address] [place] [address] Sodium [Moles/Vol] 134 mmol/L Low 136-145 [facility] Comment on above: Performed By: #### 9 5423-0 #### CHITO SIDDIQI (09179) [facility] ([facility]) [address] [place] [address] Urea nitrogen [Mass/Vol] 42 mg/dL High 6-23 [facility] Comment on above: Performed By: #### 9 5423-0 #### CHITO SIDDIQI (91203) [facility] ([facility]) [address] [place] [address] TRANSTHORACIC ECHO (TTE) [facility] [employer] 06-30-2024 TRANSTHORACIC ECHO (TTE) [facility], Count includes the [facility] [place] [address] and TRANSTHORACIC ECHOCARDIOGRAM REPORT Patient Name: ANA CRISTINA THOMAS Reading Physician: [id number] Brian Conroy MD Study Date: 06/30/2024 Ordering Provider: [id number] JEROMEMADDICORRINE HOOVER MRN/PID: [id number] Fellow: Nurse: Date of /Age: 6 1970 Merchandise Flow Manager: Vicente roman Gender assigned at F Additional Staff: : Height: 163.00 cm Admit Date: 06/29/2024 Weight: 69.00 kg Admission Status: Inpatient - Routine BSA / BMI: 1.74 m2 / 25.97 kg/m2 Blood Pressure: 95/44 mmHg Department Location: [facility] Non Invasive Study Type: TRANSTHORACIC ECHO (TTE) COMPLETE Diagnosis/ICD: Sepsis, unspecified organism-A41.9 Indication: Septic Bacteria Due to Escherichia Coli CPT Code: Echo Complete w Full [id number] Patient History: Pertinent History: Sepsis. Study Detail: [...] LA Area A2C: 18.1 cm2 LA [place] A4C: 5.1 cm LA [place] A2C: 4.9 cm LA Volume Index: 31.3 ml/m2 LA Vol A4C: 45.9 ml LA Vol A2C: 52.9 ml LA Vol Index BSA: 28.3 ml/m2 RIGHT ATRIUM: Normal Ranges: RA Vol A4C: 52.5 ml (8.3-19.5ml) RA Vol Index A4C: 30.1 ml/m2 RA Area A4C: 18.1 cm2 RA [place] A4C: 5.3 cm AORTA MEASUREMENTS: Normal Ranges: [...] cm (18-25cm) (more content not included)... Normal [facility] ACUTE TOXICOLOGY PANEL, BLOO Don 06-29-2024 Acetaminophen [Mass/Vol] ug/mL Normal 10.0-30.0 [facility] Comment on above: Performed By: #### D RUBL #### CHITO SIDDIQI ([id number]) [facility] ([facility] [place]) [address] [place] [address] Ethanol [Mass/Vol] mg/dL Normal <=10 [facility] Comment on above: Performed By: #### D RUBL #### CHITO SIDDIQI (83724) [facility] ([facility] [address] [place] [address] Salicylates [Mass/Vol] mg/dL Normal 4-20 [facility] Comment on above: Performed By: #### D RUBL #### CHITO SIDDIQI (14649) [facility] ([facility]) [address] [place] [address] Ammoniaon 06-29-2024 Ammonia (P) [Moles/Vol] 23 umol/L Normal 16-53 [facility] Comment on above: Result Comment: MILD HEMOLYSIS DETECTED. The result may be falsely elevated due to hemolysis or other interferents. Clinical correlation is recommended. Repeat testing may be considered. Performed By: #### 1 6362-6 #### CHITO SIDDIQI (20092) [facility] ([facility]) [address] [id number] Bacteria identifiedon 2024 Bacteria identified Cx Nom (U) Test: Urine Culture Specimen Source: Clean Catch/Voided Specimen Type: Urine Specimen Date: 06/29/20241729 Result Date: 06/30/20241949 Result Status: Final result Abnormal: No Resulting Lab: [facility] [address] [address] CULTURE Clinically insignificant growth based on current clinical standards. Normal [facility] Comment on above: Performed By: #### 5 0957-0 #### CHITO SIDDIQI (91630) [facility] ([facility]) [address] [id number] Bacteria identified Cx Nom (Bld) Test: Blood Culture Specimen Source: Peripheral Venipuncture Specimen Type: Blood culture Specimen Date: 06/29/2024641 Result Date: 07/01/2024 1227 Result Status: Final result Abnormal: Yes Resulting Lab: [facility] [address] [address] CULTURE Escherichia coli (Abnormal) BLOOD CULTURE BOTTLE [...] Susceptible TRIMETHOPRIM/SULFAMETH OXAZOLE <=0.5/9.5 ug/ml Susceptible Abnormal [facility] Comment on above: Performed By: #### 2 4323-8 #### CHITO SIDDIQI (26340) [facility] ([facility]) [address] [place] [address] Bacteria identified Cx Nom (Bld) Test: Blood Culture Specimen Source: Peripheral Venipuncture Specimen Type: Blood culture Specimen Date: 06/29/2024641 Result Date: 07/01/2024 1301 Result Status: Final result Abnormal: Yes Resulting Lab: [facility] [id number] [place] [address] CULTURE Escherichia coli (Abnormal) For antibiotic susceptibility results see Specimen # - [id number], 06-29-24 BLOOD CULTURE BOTTLE - Positive Aerobic Bottle Received 2 aerobic bottles under the same accession number. STAIN Gram negative bacilli Aerobic Bottle Positive Gram negative bacilli Aerobic Bottle Positive Abnormal [facility] Comment on above: Performed By: #### 2 4323-8 #### CHITO SIDDIQI (09012) [facility] ([facility]) [address] [place] [address] CBC W Auto Differential pane l (Bld)on 06-29-2024 Erythrocyte distribution width (RBC) [Ratio] 13.5 % Normal 11.5-14.5 [facility] Comment on above: Order Comment: The p [...] By: #### 5 7021-8 #### CHITO SIDDIQI (32694) [facility] ([facility]) [address] [place] [address] Hematocrit (Bld) [Volume fraction] 46.9 % High 36.0-46.0 [facility] Comment on above: Order Comment: The p [...] By: #### 5 7021-8 #### CHITO SIDDIQI (39432) [facility] ([facility]) [address] [place] [address] Hemoglobin (Bld) [Mass/Vol] 15.5 g/dL Normal 12.0-16.0 [facility] Comment on above: Order Comment: The p [...] By: #### 5 7021-8 #### CHITO SIDDIQI (82140) [facility] ([facility]) [address] [place] [address] Immature granulocytes (Bld) [#/Vol] 0.06 x10*3/uL Normal 0.00-0.70 [facility] Comment on above: Order Comment: The p [...] By: #### 5 7021-8 #### CHITO SIDDIQI (15425) [facility] ([facility]) [address] [place] [address] Immature granulocytes/100 WBC (Bld) 0.6 % Normal 0.0-0.9 [facility] Comment on above: Order Comment: The p [...] By: #### 5 7021-8 #### CHITO SIDDIQI (29420) [facility] ([facility]) [address] [place] [address] MCH (RBC) [Entitic mass] 28.1 pg Normal 26.0-34.0 [facility] Comment on above: Order Comment: The p [...] By: #### 5 7021-8 #### CHITO SIDDIQI (45903) [facility] ([facility]) [address] [place] [address] MCHC (RBC) [Mass/Vol] 33.0 g/dL Normal 32.0-36.0 [facility] Comment on above: Order Comment: The [...] By: #### 5 7021-8 #### CHITO SIDDIQI (17887) [facility] ([facility]) [address] [id number] MCV (RBC) [Entitic vol] 85 fL Normal 80-100 [facility] Comment on above: Order Comment: The p [...] By: #### 5 7021-8 #### CHITO SIDDIQI (75436) [facility] ([facility]) [address] [place] [address] Nucleated RBC/100 WBC (Bld) [Ratio] 0.0 /100 WBCs Normal 0.0-0.0 [facility] Comment on above: Order Comment: The p [...] By: #### 5 7021-8 #### CHITO SIDDIQI (81346) [facility] ([facility]) [address] [place] [address] Platelets (Bld) [#/Vol] 175 x10*3/uL Normal 150-450 [facility] Comment on above: Order Comment: The p [...] By: #### 5 7021-8 #### CHITO SIDDIQI (43062) [facility] ([facility]) [address] [place] [address] RBC (Bld) [#/Vol] 5.52 x10*6/uL High 4.00-5.20 [facility] Comment on above: Order Comment: The p [...] By: #### 5 7021-8 #### CHITO SIDDIQI (50628) [facility] ([facility]) [address] [place] [address] WBC (Bld) [#/Vol] 10.1 x10*3/uL Normal 4.4-11.3 [facility] Comment on above: Order Comment: The p [...] By: #### 5 7021-8 #### CHITO SIDDIQI (26866) [facility] ([facility]) [address] [place] [address] CBC panel Auto (Bld)on 06-29 Erythrocyte distribution width (RBC) [Ratio] 13.7 % Normal 11.5-14.5 [facility] Comment on above: Performed By: #### 3 040-3 #### CHITO SIDDIQI (48011) [facility] ([facility]) [address] [place] [address] Hematocrit (Bld) [Volume fraction] 34.7 % Low 36.0-46.0 [facility] Comment on above: Performed By: #### 3 040-3 #### CHITO SIDDIQI (98500) [facility] ([facility]) [address] [id number] Hemoglobin (Bld) [Mass/Vol] 11.4 g/dL Low 12.0-16.0 [facility] Comment on above: Performed By: #### 3 040-3 #### CHITO SIDDIQI (25738) [facility] ([facility]) [address] [id number] MCH (RBC) [Entitic mass] 28.4 pg Normal 26.0-34.0 [facility] Comment on above: Performed By: #### 3 040-3 #### CHITO SIDDIQI (37968) [facility] ([facility]) [address] [place] [id number] MCHC (RBC) [Mass/Vol] 32.9 g/dL Normal 32.0-36.0 [facility] Comment on above: Performed By: #### 3 040-3 #### CHITO SIDDIQI (25296) [facility] ([facility]) [address] [place] [address] MCV (RBC) [Entitic vol] 87 fL Normal 80-100 [facility] Comment on above: Performed By: #### 3 040-3 #### CHITO SIDDIQI (73096) [facility] ([facility]) [address] [place] [address] Nucleated RBC/100 WBC (Bld) [Ratio] 0.0 /100 WBCs Normal 0.0-0.0 [facility] Comment on above: Performed By: #### 3 040-3 #### CHITO SIDDIQI (47357) [facility] ([facility]) [address] [place] [address] Platelets (Bld) [#/Vol] 103 x10*3/uL Low 150-450 [facility] Comment on above: Performed By: #### 3 040-3 #### CHITO SIDDIQI (63204) [facility] ([facility]) [address] [place] [address] RBC (Bld) [#/Vol] 4.01 x10*6/uL Normal 4.00-5.20 [facility] Comment on above: Performed By: #### 3 040-3 #### CHITO SIDDIQI (93891) [facility] ([facility]) [address] [place] [address] WBC (Bld) [#/Vol] 14.9 x10*3/uL High 4.4-11.3 [facility] Comment on above: Performed By: #### 3 040-3 #### CHITO SIDDIQI (14086) [facility] ([facility]) [address] [place] [address] CT ABDOMEN PELVIS W IV CONTR Velia 06-29-2024 CT ABDOMEN PELVIS W IV CONTRAST STUDY: CT Angiogram of the Chest, CT Abdomen and Pelvis with IV Contrast; 06/29/2024 8:07 AM INDICATION: Shortness of breath and pain. Abdominal pain/tenderness to palpation. Fever. COMPARISON: None Available. ACCESSION NUMBER(S): [id number], [id number] ORDERING CLINICIAN: FINN ESTRELLA TECHNIQUE: CTA of [...] artery calcifications. Signed by Jay Perdomo MD [facility] CT ANGIO CHEST FOR PULMONARY EMBOLISMon 06-29-2024 CT ANGIO CHEST FOR PULMONARY EMBOLISM STUDY: CT Angiogram of the Chest, CT Abdomen and Pelvis with IV Contrast; 06/29/2024 8:07 AM INDICATION: Shortness of breath and pain. Abdominal pain/tenderness to palpation. Fever. COMPARISON: None Available. ACCESSION NUMBER(S): [id number], [id number] ORDERING CLINICIAN: FINN ESTRELLA TECHNIQUE: CTA of [...] artery calcifications. Signed by Jay Perdomo MD [facility] CT HEAD WO IV CONTRASTon CT HEAD WO IV CONTRAST Interpreted By: Erik Paz, STUDY: CT HEAD WO IV CONTRAST; 06/29/2024 7:43 am INDICATION: Signs/Symptoms:confusi on. COMPARISON: None. ACCESSION NUMBER(S): [id number] ORDERING CLINICIAN: FINN ESTRELLA TECHNIQUE: Unenhanced images [...] Erik Paz 06/29/2024 8:19 AM Dictation workstation: [id number] [facility] Comprehensive metabolic 2000 panelon 06-29-2024 Albumin BCP dye [Mass/Vol] 2.7 g/dL Low 3.4-5.0 [facility] Comment on above: Performed By: #### 9 5423-0 #### CHITO SIDDIQI (17009) [facility] ([facility]) [address] [place] [address] ALP [Catalytic activity/Vol] 89 U/L Normal 33-110 [facility] Comment on above: Performed By: #### 9 5423-0 #### CHITO SIDDIQI (19021) [facility] ([facility]) [address] [place] [id number] ALT With P-5'-P [Catalytic activity/Vol] 126 U/L High 7-45 [facility] Comment on above: Result Comment: Camila ents treated with Sulfasalazine may generate falsely decreased results for ALT. Performed By: #### 9 5423-0 #### CHITO SIDDIQI (41008) [facility] ([facility]) [address] [id number] Anion gap [Moles/Vol] 11 mmol/L Normal 10-20 [facility] Comment on above: Performed By: #### 9 5423-0 #### CHITO SIDDIQI (60913) [facility] ([facility]) [address] [place] [address] AST With P-5'-P [Catalytic activity/Vol] 99 U/L High 9-39 [facility] Comment on above: Performed By: #### 9 5423-0 #### CHITO SIDDIQI (67760) [facility] ([facility]) [address] [place] [address] Bilirubin [Mass/Vol] 0.8 mg/dL Normal 0.0-1.2 [facility] Comment on above: Performed By: #### 9 5423-0 #### CHITO SIDDIQI (61546) [facility] ([facility]) [address] [place] [address] Calcium [Mass/Vol] 8.1 mg/dL Low 8.6-10.3 [facility] Comment on above: Performed By: #### 9 5423-0 #### CHITO SIDDIQI (80684) [facility] ([facility]) [address] [place] [address] Chloride [Moles/Vol] 103 mmol/L Normal 98-107 [facility] Comment on above: Performed By: #### 9 5423-0 #### CHITO SIDDIQI (23749) [facility] ([facility]) [address] [place] [address] CO2 [Moles/Vol] 24 mmol/L Normal 21-32 [facility] Comment on above: Performed By: #### 9 5423-0 #### CHITO SIDDIQI (07994) [facility] ([facility]) [address] [place] [address] Creatinine [Mass/Vol] 1.23 mg/dL High 0.50-1.05 [facility] Comment on above: Performed By: #### 9 5423-0 #### CHITO SIDDIQI (89140) [facility] ([facility]) [address] [place] [address] Glomerular filtration rate/1.73 sq M.predicted 53 mL/min/1.73m*2 Low >60 [facility] Comment on above: Result Comment: Calc ulations of estimated GFR are performed using the 2020 CKD-EPI Study Refit equation without the race variable for the IDMS-Traceable creatinine methods. https://jasn.asnjournals.org/content//ASN.696949 0702 Performed By: #### 9 5423-0 #### CHITO SIDDIQI (29795) [facility] ([facility]) [address] [place] [address] Glucose [Mass/Vol] 193 mg/dL High 74-99 [facility] Comment on above: Performed By: #### 9 5423-0 #### CHITO SIDDIQI (99009) [facility] ([facility]) [address] [place] [address] Potassium [Moles/Vol] 3.5 mmol/L Normal 3.5-5.3 [facility] Comment on above: Performed By: #### 9 5423-0 #### CHITO SIDDIQI (35081) [facility] ([facility]) [address] [place] [address] Protein [Mass/Vol] 4.8 g/dL Low 6.4-8.2 [facility] Comment on above: Performed By: #### 9 5423-0 #### CHITO SIDDIQI (49808) [facility] ([facility]) [address] [place] [address] Sodium [Moles/Vol] 134 mmol/L Low 136-145 [facility] Comment on above: Performed By: #### 9 5423-0 #### CHITO SIDDIQI (47992) [facility] ([facility]) [address] [place] [address] Urea nitrogen [Mass/Vol] 39 mg/dL High 6-23 [facility] Comment on above: Performed By: #### 9 5423-0 #### CHITO SIDDIQI (27599) [facility] ([facility]) [address] [place] [address] Albumin BCP dye [Mass/Vol] 3.7 g/dL Normal 3.4-5.0 [facility] Comment on above: Performed By: #### 2 4323-8 #### CHITO SIDDIQI (32534) [facility] ([facility]) [address] [place] [address] ALP [Catalytic activity/Vol] 174 U/L High 33-110 [facility] Comment on above: Performed By: #### 2 4323-8 #### CHITO SIDDIQI (61498) [facility] ([facility]) [address] [place] [address] ALT With P-5'-P [Catalytic activity/Vol] 166 U/L High 7-45 [facility] Comment on above: Result Comment: Camila ents treated with Sulfasalazine may generate falsely decreased results for ALT. Performed By: #### 2 4323-8 #### CHITO SIDDIQI (28918) [facility] ([facility]) [address] [place] [address] Anion gap [Moles/Vol] 16 mmol/L Normal 10-20 [facility] Comment on above: Performed By: #### 2 4323-8 #### CHITO SIDDIQI (01385) [facility] ([facility]) [address] [place] [address] AST With P-5'-P [Catalytic activity/Vol] 121 U/L High 9-39 [facility] Comment on above: Performed By: #### 2 432-8 #### CHITO SIDDIQI (88229) [facility] ([facility]) [address] [place] [address] Bilirubin [Mass/Vol] 0.6 mg/dL Normal 0.0-1.2 [facility] Comment on above: Performed By: #### 2 4322-8 #### CHITO SIDDIQI (78762) [facility] ([facility]) [address] [place] [address] Calcium [Mass/Vol] 9.6 mg/dL Normal 8.6-10.3 [facility] Comment on above: Performed By: #### 2 4322-8 #### CHITO SIDDIQI (82888) [facility] ([facility]) [address] [place] [address] Chloride [Moles/Vol] 97 mmol/L Low 98-107 [facility] Comment on above: Performed By: #### 2 3-8 #### CHITO SIDDIQI (22584) [facility] ([facility]) [address] [place] [address] CO2 [Moles/Vol] 27 mmol/L Normal 21-32 [facility] Comment on above: Performed By: #### 2 4322-8 #### CHITO SIDDIQI (63660) [facility] ([facility]) [address] [place] [address] Creatinine [Mass/Vol] 0.90 mg/dL Normal 0.50-1.05 [facility] Comment on above: Performed By: #### 2 4322-8 #### CHITO SIDDIQI (91132) [facility] ([facility]) [address] [place] [address] Glomerular filtration rate/1.73 sq M.predicted 77 mL/min/1.73m*2 Normal >60 [facility] Comment on above: Result Comment: Calc ulations of estimated GFR are performed using the 2020 CKD-EPI Study Refit equation without the race variable for the IDMS-Traceable creatinine methods. https://jasn.asnjournals.org/content/early//ASN.225399 5251 Performed By: #### 2 432-8 #### CHITO SIDDIQI (56382) [facility] ([facility]) [address] [place] [address] Glucose [Mass/Vol] 289 mg/dL High 74-99 [facility] Comment on above: Performed By: #### 2 432-8 #### CHITO SIDDIQI (83193) [facility] ([facility]) [address] [place] [address] Potassium [Moles/Vol] 4.3 mmol/L Normal 3.5-5.3 [facility] Comment on above: Performed By: #### 2 4322-8 #### CHITO SIDDIQI (11631) [facility] ([facility]) [address] [place] [address] Protein [Mass/Vol] 6.9 g/dL Normal 6.4-8.2 [facility] Comment on above: Performed By: #### 2 3-8 #### CHITO SIDDIQI (96888) [facility] ([facility]) [address] [place] [address] Sodium [Moles/Vol] 136 mmol/L Normal 136-145 [facility] Comment on above: Performed By: #### 2 432-8 #### CHITO SIDDIQI (40535) [facility] ([facility]) [address] [place] [address] Urea nitrogen [Mass/Vol] 31 mg/dL High 6-23 [facility] Comment on above: Performed By: #### 2 4323-8 #### CHITO SIDDIQI (06475) [facility] ([facility]) [address] [place] [address] DRUG SCREEN,URINEon 06-30-19 25 Amphetamines Screen Ql (U) Negative Normal Presumptive Negative [facility] Comment on above: Order Comment: Venip uncture [...] By: #### 3 040-3 #### CHITO SIDDIQI (74902) [facility] ([facility]) [address] [place] [address] Barbiturates Screen Ql (U) Negative Normal Presumptive Negative [facility] Comment on above: Order Comment: Venip uncture immediately after or during the administration of Metamizole may lead to falsely low results. Testing should be performed immediately prior to Metamizole dosing. Result Comment: CUTO FF LEVEL: 200 NG/ML Performed By: #### 3 040-3 #### CHITO SIDDIQI (23522) [facility] ([facility]) [address] [place] [address] Benzodiazepines Ql (U) Negative Normal Presumptive Negative [facility] Comment on above: Order Comment: Venip uncture immediately after or during the administration of Metamizole may lead to falsely low results. Testing should be performed immediately prior to Metamizole dosing. Result Comment: CUTO FF LEVEL: 200 NG/ML Performed By: #### 3 040-3 #### CHITO SIDDIQI (88586) [facility] ([facility]) [address] [place] [address] Benzoylecgonine Screen Ql (U) Negative Normal Presumptive Negative [facility] Comment on above: Order Comment: Venip uncture immediately after or during the administration of Metamizole may lead to falsely low results. Testing should be performed immediately prior to Metamizole dosing. Result Comment: CUTO FF LEVEL: 150 NG/ML Performed By: #### 3 040-3 #### CHITO SIDDIQI (73846) [facility] ([facility]) [address] [place] [address] Cannabinoids Screen Ql (U) Negative Normal Presumptive Negative [facility] Comment on above: Order Comment: Venip uncture immediately after or during the administration of Metamizole may lead to falsely low results. Testing should be performed immediately prior to Metamizole dosing. Result Comment: CUTO FF LEVEL: 50 NG/ML Performed By: #### 3 040-3 #### CHITO SIDDIQI (19644) [facility] ([facility]) [address] [place] [address] fentaNYL+Norfentanyl Screen Ql (U) Negative Normal Presumptive Negative [facility] Comment on above: Order Comment: Venip uncture immediately after or during the administration of Metamizole may lead to falsely low results. Testing should be performed immediately prior to Metamizole dosing. Result Comment: CUTO FF LEVEL: 5 NG/ML Performed By: #### 3 040-3 #### CHITO SIDDIQI (23430) [facility] ([facility]) [address] [place] [address] Methadone Screen Ql (U) Negative Normal Presumptive Negative [facility] Comment on above: Order Comment: Venip uncture immediately after or during the administration of Metamizole may lead to falsely low results. Testing should be performed immediately prior to Metamizole dosing. Result Comment: CUTO FF LEVEL: 150 NG/ML The metabolite L-nuuhw-rmphuyvkqiywpq (LAAM) is not detected by this method in concentrations that would be found in the urine of patients on LAAM therapy. Performed By: #### 3 040-3 #### CHITO SIDDIQI (57831) [facility] ([facility]) [address] [place] [address] Opiates Screen Ql (U) Negative Normal Presum ptive Negative [facility] Comment on above: Order Comment: Venip uncture [...] By: #### 3 040-3 #### CHITO SIDDIQI (08486) [facility] ([facility]) [address] [place] [address] oxyCODONE+oxyMORphone Screen Ql (U) Negative Normal Presumptive Negative [facility] Comment on above: Order Comment: Venip uncture immediately after or during the administration of Metamizole may lead to falsely low results. Testing should be performed immediately prior to Metamizole dosing. Result Comment: CUTO FF LEVEL: 100 NG/ML This test will accurately detect both oxycodone and oxymorphone. Performed By: #### 3 040-3 #### CHITO SIDDIQI ([id number]) [facility] ([facility] [place]) [address] [place] [address] Phencyclidine Ql (U) Negative Normal Presump tive Negative [facility] Comment on above: Order Comment: Venip uncture immediately after or during the administration of Metamizole may lead to falsely low results. Testing should be performed immediately prior to Metamizole dosing. Result Comment: CUTO FF LEVEL: 25 NG/ML Cross-reactivity has been reported with dextromethorphan. Performed By: #### 3 040-3 #### CHITO SIDDIQI (26859) [facility] ([facility] [place] [address] [place] [address] ECG 12-LEADon 06-29-2024 ECG 12-LEAD Ventricular Rate 138 Atrial Rate 138 P-R Interval 146 QRS Duration 72 Q-T Interval 280 QTC Calculation(Bazett) 424 P [place] 47 R [place] 54 T [place] 93 QRS Count 23 Q Onset 224 P Onset 151 P Offset 200 T Offset 364 QTC Fredericia 369 Diagnosis Sinus tachycardia Septal infarct (cited on or before 29-JUN-2024) Abnormal ECG Confirmed by Сергей Bustillos ([id number]) on 08/17/2024 4:33:25 PM Normal [facility] ECG 12-LEAD Ventricular Rate 141 Atrial Rate 141 P-R Interval 130 QRS Duration 72 Q-T Interval 274 QTC Calculation(Bazett) 419 P [place] 33 R [place] -18 T [place] 21 QRS Count 23 Q Onset 218 P Onset 153 P Offset 210 T Offset 355 QTC Fredericia 364 Diagnosis Sinus tachycardia Inferior infarct , age undetermined Anterolateral infarct , age undetermined Abnormal ECG No previous ECGs available See ED provider note for full interpretation and clinical correlation Confirmed by Chelsie Franco ([id number]) on 07/08/2024 1:12:54 PM Normal [facility] Gas and Carbon monoxide and Electrolytes panel (BldA)on 06-29-2024 Anion gap 4 (BldA) [Moles/Vol] 13 mmo/L Normal 10-25 [facility] Comment on above: Performed By: #### 3 040-3 #### CHITO SIDDIQI (99084) [facility] ([facility]) [address] [place] [address] Base excess Calc (Bld) [Moles/Vol] -2.4000 mmol/L Low -2.0-3.0 [facility] Comment on above: Performed By: #### 3 040-3 #### CHITO SIDDIQI (88423) [facility] ([facility]) [address] [place] [address] Calcium.ionized (BldA) [Moles/Vol] 1.17 mmol/L Normal 1.10-1.33 [facility] Comment on above: Performed By: #### 3 040-3 #### CHITO SIDDIQI (59484) [facility] ([facility]) [address] [place] [address] Chloride (BldA) [Moles/Vol] 99 mmol/L Normal 98-107 [facility] Comment on above: Performed By: #### 3 040-3 #### CHITO SIDDIQI (06141) [facility] ([facility]) [address] [place] [address] CO2 (Bld) [Partial pressure] 33 mm Hg Low 38-42 [facility] Comment on above: Performed By: #### 3 040-3 #### CHITO SIDDIQI (84996) [facility] ([facility]) [address] [place] [address] Glucose [Mass/Vol] 224 mg/dL High 74-99 [facility] Comment on above: Performed By: #### 3 040-3 #### CHITO SIDDIQI (61721) [facility] ([facility]) [address] [place] [id number] HCO3 (Bld) [Moles/Vol] 21.4 mmol/L Low 22.0-26.0 [facility] Comment on above: Performed By: #### 3 040-3 #### CHITO SIDDIQI (80203) [facility] ([facility]) [address] [place] [id number] Hematocrit Est (Bld) [Volume fraction] 38.0 % Normal 36.0-46.0 [facility] Comment on above: Performed By: #### 3 040-3 #### CHITO SIDDIQI (31596) [facility] ([facility]) [address] [place] [id number] Hemoglobin (Bld) [Mass/Vol] 12.7 g/dL Normal 12.0-16.0 [facility] Comment on above: Performed By: #### 3 040-3 #### CHITO SIDDIQI (51523) [facility] ([facility]) [address] [place] [id number] Inhaled oxygen concentration 24 % Normal [facility] Comment on above: Performed By: #### 3 040-3 #### CHITO SIDDIQI (82303) [facility] ([facility]) [address] [place] [phone] Lactate (BldA) [Moles/Vol] 5.3 mmol/L Critically high 0.4-2.0 [facility] Comment on above: Performed By: #### 3 040-3 #### CHITO SIDDIQI (44268) [facility] ([facility]) [address] [place] [phone] Oxygen (Bld) [Partial pressure] 68 mm Hg Low 85-95 [facility] Comment on above: Performed By: #### 3 040-3 #### CHITO SIDDIQI (58582) [facility] ([facility]) [address] [place] [address] Oxyhemoglobin (BldA) [Mass fraction] 93.2 % Low 94.0-98.0 [facility] Comment on above: Performed By: #### 3 040-3 #### CHITO SIDDIQI (46947) [facility] ([facility]) [address] [place] [address] pH (Bld) 7.42 [pH] Normal 7.38-7.42 [facility] Comment on above: Performed By: #### 3 040-3 #### CHITO SIDDIQI (88809) [facility] ([facility]) [address] [place] [address] Potassium (BldA) [Moles/Vol] 3.6 mmol/L Normal 3.5-5.3 [facility] Comment on above: Performed By: #### 3 040-3 #### CHITO SIDDIQI (29640) [facility] ([facility]) [address] [place] [phone] Sodium (BldA) [Moles/Vol] 130 mmol/L Low 136-145 [facility] Comment on above: Performed By: #### 3 040-3 #### CHITO SIDDIQI (84621) [facility] ([facility]) [address] [place] [address] Glucose Test strip manual (B ld) [Mass/Vol]on 06-29-2024 Glucose [Mass/Vol] 167 mg/dL High [address] Comment on above: Performed By: #### 9 5423-0 #### CHITO SIDDIQI (08988) [facility] ([facility]) [address] [place] [address] Glucose [Mass/Vol] 230 mg/dL High [address] [place] [address] Comment on above: Performed By: #### 3 040-3 #### CHITO SIDDIQI (26906) [facility] ([facility]) [address] [place] [address] Glucose [Mass/Vol] 224 mg/dL High [address] Comment on above: Performed By: #### 3 040-3 #### CHITO SIDDIQI (42434) [facility] ([facility]) [address] [place] [address] Glucose [Mass/Vol] 267 mg/dL High 74-99 [facility] Comment on above: Performed By: #### 3 040-3 #### CHITO SIDDIQI (68063) [facility] ([facility]) [address] [place] [address] HbA1c (Bld) [Mass fraction]o n 06-29-2024 Average glucose Estimated from glycated hemoglobin (Bld) [Mass/Vol] 240 mg/dL Normal Not Established [facility] Comment on above: Order Comment: This assay is an FDA-cleared, in vitro diagnostic nucleic acid amplification test for the qualitative detection and differentiation of SARS CoV-2/ Influenza A/B from nasopharyngeal specimens collected from individuals with signs and symptoms of respiratory tract infections, and has been validated for use at [facility]. Negative results do not preclude COVID-19/ Influenza A/B infections and should not be used as the sole basis for diagnosis, treatment, or other management decisions. Testing for SARS CoV-2 is recommended only for patients who meet current clinical and/or epidemiological criteria defined by federal, state, or local public health directives. Performed By: #### 9 5423-0 #### CHITO SIDDIQI (96403) [facility] ([facility]) [address] [place] [address] Hemoglobin A1c/Hemoglobin.to stacy 06-29-2024 HbA1c (Bld) [Mass fraction] 10.0 % High See comment [facility] Comment on above: Order Comment: This assay is an FDA-cleared, in vitro diagnostic nucleic acid amplification test for the qualitative detection and differentiation of SARS CoV-2/ Influenza A/B from nasopharyngeal specimens collected from individuals with signs and symptoms of respiratory tract infections, and has been validated for use at [facility]. Negative results do not preclude COVID-19/ Influenza A/B infections and should not be used as the sole basis for diagnosis, treatment, or other management decisions. Testing for SARS CoV-2 is recommended only for patients who meet current clinical and/or epidemiological criteria defined by federal, state, or local public health directives. Performed By: #### 9 5423-0 #### CHITO SIDDIQI (86318) [facility] ([facility]) [address] [place] [address] Influenza virus A and B and SARS-CoV-2 (COVID-19) identified SIRENA+probe Nom (Resp)on 06-29-2024 FLUAV RNA SIRENA+probe Ql (Resp) Not detected Normal Not Detected [facility] Comment on above: Order Comment: This assay is an FDA-cleared, in vitro diagnostic nucleic acid amplification test for the qualitative detection and differentiation of SARS CoV-2/ Influenza A/B from nasopharyngeal specimens collected from individuals with signs and symptoms of respiratory tract infections, and has been validated for use at [facility]. Negative results do not preclude COVID-19/ Influenza A/B infections and should not be used as the sole basis for diagnosis, treatment, or other management decisions. Testing for SARS CoV-2 is recommended only for patients who meet current clinical and/or epidemiological criteria defined by federal, state, or local public health directives. Performed By: #### 9 5423-0 #### CHITO SIDDIQI (11630) [facility] ([facility]) [address] [place] [address] FLUBV RNA SIRENA+probe Ql (Resp) Not detected Normal Not Detected [facility] Comment on above: Order Comment: This assay is an FDA-cleared, in vitro diagnostic nucleic acid amplification test for the qualitative detection and differentiation of SARS CoV-2/ Influenza A/B from nasopharyngeal specimens collected from individuals with signs and symptoms of respiratory tract infections, and has been validated for use at [facility]. Negative results do not preclude COVID-19/ Influenza A/B infections and should not be used as the sole basis for diagnosis, treatment, or other management decisions. Testing for SARS CoV-2 is recommended only for patients who meet current clinical and/or epidemiological criteria defined by federal, state, or local public health directives. Performed By: #### 9 5423-0 #### CHITO SIDDIQI (27139) [facility] ([facility]) [address] [place] [address] SARS-CoV-2 (COVID-19) RNA SIRENA+probe Ql (Resp) Not detected Normal Not Detected [facility] Comment on above: Order Comment: This assay is an FDA-cleared, in vitro diagnostic nucleic acid amplification test for the qualitative detection and differentiation of SARS CoV-2/ Influenza A/B from nasopharyngeal specimens collected from individuals with signs and symptoms of respiratory tract infections, and has been validated for use at [facility]. Negative results do not preclude COVID-19/ Influenza A/B infections and should not be used as the sole basis for diagnosis, treatment, or other management decisions. Testing for SARS CoV-2 is recommended only for patients who meet current clinical and/or epidemiological criteria defined by federal, state, or local public health directives. Performed By: #### 9 5423-0 #### CIHTO SIDDIQI (42264) [facility] ([facility]) [address] [place] [address] Lactateon 06-29-2024 Lactate [Moles/Vol] 3.2 mmol/L High 0.4-2.0 [facility] Comment on above: Order Comment: This assay is an FDA-cleared, in vitro diagnostic nucleic acid amplification test for the qualitative detection and differentiation of SARS CoV-2/ Influenza A/B from nasopharyngeal specimens collected from individuals with signs and symptoms of respiratory tract infections, and has been validated for use at [facility]. Negative results do not preclude COVID-19/ Influenza A/B infections and should not be used as the sole basis for diagnosis, treatment, or other management decisions. Testing for SARS CoV-2 is recommended only for patients who meet current clinical and/or epidemiological criteria defined by federal, state, or local public health directives. Performed By: #### 9 5423-0 #### CHITO SIDDIQI (32291) [facility] ([facility]) [address] [place] [address] Lactate (BldV) [Moles/Vol] 4.2 mmol/L Critically high 0.4-2.0 [facility] Comment on above: Performed By: #### 3 040-3 #### CHITO SIDDIQI (88532) [facility] ([facility]) [address] [place] [address] Lactate [Moles/Vol] 5.4 mmol/L Critically high 0.4-2.0 [facility] Comment on above: Order Comment: Venip uncture immediately after or during the administration of Metamizole may lead to falsely low results. Testing should be performed immediately prior to Metamizole dosing. Result Comment: Prev ious result verified on 06/29/2024699 on specimen/case [id number] called with component LACT for procedure Lactate with value 4.3 mmol/L. Performed By: #### 2 4323-8 #### CHITO SIDDIQI (62289) [facility] ([facility]) [address] [place] [address] Lactate [Moles/Vol] 4.9 mmol/L Critically high 0.4-2.0 [facility] Comment on above: Order Comment: Venip uncture immediately after or during the administration of Metamizole may lead to falsely low results. Testing should be performed immediately prior to Metamizole dosing. Result Comment: Prev ious result verified on 06/29/2024699 on specimen/case [id number] called with component LACT for procedure Lactate with value 4.3 mmol/L. Performed By: #### 2 4323-8 #### CHITO SIDDIQI (80092) [facility] ([facility]) [address] [place] [address] Lactate [Moles/Vol] 5.5 mmol/L Critically high 0.4-2.0 [facility] Comment on above: Order Comment: Venip uncture immediately after or during the administration of Metamizole may lead to falsely low results. Testing should be performed immediately prior to Metamizole dosing. Result Comment: Prev ious result verified on 06/29/2024699 on specimen/case [id number] called with component LACT for procedure Lactate with value 4.3 mmol/L. Performed By: #### 2 4323-8 #### CHITO SIDDIQI (90441) [facility] ([facility]) [address] [place] [address] Lactate [Moles/Vol] 4.3 mmol/L Critically high 0.4-2.0 [facility] Comment on above: Order Comment: Venip uncture immediately after or during the administration of Metamizole may lead to falsely low results. Testing should be performed immediately prior to Metamizole dosing. Performed By: #### 2 524-7 #### CHITO SIDDIQI (65611) [facility] ([facility]) [address] [place] [address] Magnesiumon 06-29-2024 Magnesium [Mass/Vol] 1.36 mg/dL Low 1.60-2.40 [facility] Comment on above: Performed By: #### 3 040-3 #### CHITO SIDDIQI (44214) [facility] ([facility]) [address] [place] [address] Magnesium [Mass/Vol] 1.73 mg/dL Normal 1.60-2.40 [facility] Comment on above: Performed By: #### 1 9123-9 #### CHITO SIDDIQI (96796) [facility] ([facility]) [address] [place] [address] Manual differential performe d Ql (Bld)on 06-29-2024 Band form neutrophils (Bld) [#/Vol] 3.43 x10*3/uL High 0.00-0.70 [facility] Comment on above: Performed By: #### 5 0957-0 #### CHITO SIDDIQI (64569) [facility] ([facility]) [address] [place], [place] [address] Band form neutrophils/100 WBC (Bld) 34.0 % Normal 0.0-5.0 [facility] Comment on above: Performed By: #### 5 0957-0 #### CHITO SIDDIQI (21106) [facility] ([facility]) [address] [place], [place] [address] Basophils (Bld) [#/Vol] 0.00 x10*3/uL Normal 0.00-0.10 [facility] Comment on above: Performed By: #### 5 0957-0 #### CHITO SIDDIQI (05162) [facility] ([facility]) [address] [place] [address] Basophils/100 WBC (Bld) 0.0 % Normal 0.0-2.0 [facility] Comment on above: Performed By: #### 5 0957-0 #### CHITO SIDDIQI (04715) [facility] ([facility]) [address] [place] [address] Cells Counted Total (Bld) [#] 100 Normal [facility] Comment on above: Performed By: #### 5 57-0 #### CHITO SIDDIQI (27105) [facility] ([facility]) [address] [place] [address] Eosinophils (Bld) [#/Vol] 0.00 x10*3/uL Normal 0.00-0.70 [facility] Comment on above: Performed By: #### 5 57-0 #### CHITO SIDDIQI (47609) [facility] ([facility]) [address] [place] [address] Eosinophils/100 WBC (Bld) 0.0 % Normal 0.0-6.0 [facility] Comment on above: Performed By: #### 5 57-0 #### CHITO SIDDIQI (05007) [facility] ([facility]) [address] [place] [address] Lymphocytes (Bld) [#/Vol] 0.10 x10*3/uL Low 1.20-4.80 [facility] Comment on above: Performed By: #### 5 57-0 #### CHITO SIDDIQI (05162) [facility] ([facility]) [address] [place] [address] Lymphocytes/100 WBC (Bld) 1.0 % Normal 13.0-44.0 [facility] Comment on above: Performed By: #### 5 57-0 #### CHITO SIDDIQI (37996) [facility] ([facility]) [address] [place] [address] Monocytes (Bld) [#/Vol] 0.00 x10*3/uL Low 0.10-1.00 [facility] Comment on above: Performed By: #### 5 57-0 #### CHITO SIDDIQI (14731) [facility] ([facility]) [address] [place] [address] Monocytes/100 WBC (Bld) 0.0 % Normal 2.0-10.0 [facility] Comment on above: Performed By: #### 5 0957-0 #### CHITO SIDDIQI (85157) [facility] ([facility]) [address] [place] [address] Neutrophils (Bld) [#/Vol] 9.89 x10*3/uL High 1.20-7.70 [facility] Comment on above: Performed By: #### 5 57-0 #### CHITO SIDDIQI (92006) [facility] ([facility]) [address] [place] [address] RBC morphology finding Nom (Bld) No significant RBC morphology present Normal [facility] Comment on above: Performed By: #### 5 0957-0 #### CHITO SIDDIQI (71883) [facility] ([facility]) [address] [place] [address] Segmented neutrophils (Bld) [#/Vol] 6.46 x10*3/uL Normal 1.20-7.00 [facility] Comment on above: Performed By: #### 5 0957-0 #### CHITO SIDDIQI (58388) [facility] ([facility]) [address] [place] [id number] Segmented neutrophils/100 WBC (Bld) 64.0 % Normal 40.0-80.0 [facility] Comment on above: Result Comment: Perc ent differential counts (%) should be interpreted in the context of the absolute cell counts (cells/uL). Performed By: #### 5 0957-0 #### CHITO SIDDIQI (19092) [facility] ([facility]) [address] [place] [phone] Variant lymphocytes (Bld) [#/Vol] 0.10 x10*3/uL Normal 0.00-0.50 [facility] Comment on above: Performed By: #### 5 0957-0 #### CHITO SIDDIQI (24380) [facility] ([facility]) [address] [place] [id number] Variant lymphocytes/100 WBC (Bld) 1.0 % Normal 0.0-2.0 [facility] Comment on above: Performed By: #### 5 0957-0 #### CHITO SIDDIQI (75870) [facility] ([facility]) [address] [place] [address] PT and aPTT panel Coag (PPP) on 06-29-2024 aPTT Coag (PPP) [Time] 31 s Normal 26-36 [facility] Comment on above: Order Comment: The A PTT is no longer used for monitoring Unfractionated Heparin Therapy. For monitoring Heparin Therapy, use the Heparin Assay. Performed By: #### 2 4323-8 #### CHITO SIDDIQI (85569) [facility] ([facility]) [address] [place] [address] INR Coag (PPP) [Relative time] 1.1 Normal 0.9-1.1 [facility] Comment on above: Order Comment: The A PTT is no longer used for monitoring Unfractionated Heparin Therapy. For monitoring Heparin Therapy, use the Heparin Assay. Performed By: #### 2 4323-8 #### CHITO SIDDIQI (95618) [facility] ([facility]) [address] [place] [address] PT Coag (PPP) [Time] 12.4 s Normal 9.8-12.4 [facility] Comment on above: Order Comment: The A PTT is no longer used for monitoring Unfractionated Heparin Therapy. For monitoring Heparin Therapy, use the Heparin Assay. Performed By: #### 2 4323-8 #### CHITO SIDDIQI (62100) [facility] ([facility]) [address] [place] [address] Phosphateon 06-29-2024 Phosphate [Mass/Vol] 1.9 mg/dL Low 2.5-4.9 [facility] Comment on above: Result Comment: The performance characteristics of phosphorus testing in heparinized plasma have been validated by the individual laboratory site where testing is performed. Testing on heparinized plasma is not approved by the FDA; however, such approval is not necessary. Performed By: #### 9 5423-0 #### CHITO SIDDIQI (18303) [facility] ([facility]) [address] [place] [address] TSH WITH REFLEX TO FREE T4 I F ABNORMALon 06-29-2024 TSH Qn 1.41 m[IU]/L Normal 0.44-3.98 [facility] Comment on above: Order Comment: TSH t esting is performed using different testing methodology at [facility] than at other [facility]. Direct result comparisons should only be made within the same method. Performed By: #### T JADENS #### CHITO SIDDIQI (45410) [facility] ([facility]) [address] [place] [address] Triacylglycerol lipaseon Lipase [Catalytic activity/Vol] 41 U/L Normal 9-82 [facility] Comment on above: Order Comment: Venip uncture immediately after or during the administration of Metamizole may lead to falsely low results. Testing should be performed immediately prior to Metamizole dosing. Performed By: #### 3 040-3 #### CHITO SIDDIQI (30059) [facility] ([facility]) [address] [place] [id number] Urinalysis complete W Reflex Culture panel (U)on 06-29-2024 Appearance (U) Clear Normal Clear [facility] Comment on above: Performed By: #### 3 040-3 #### CHITO SIDDIQI (65403) [facility] ([facility]) [address] [place] [phone] Bilirubin (U) [Mass/Vol] Negative Normal NEGATIVE [facility] Comment on above: Performed By: #### 3 040-3 #### CHITO SIDDIQI (99610) [facility] ([facility]) [address] [place] [phone] Color (U) Yellow Normal Light-Yellow, Yellow, Dark-Yellow [facility] Comment on above: Performed By: #### 3 040-3 #### CHITO SIDDIQI (04435) [facility] ([facility]) [address] [place] [phone] Glucose Auto test strip (U) [Mass/Vol] 500 (3+) Abnormal Normal [facility] Comment on above: Performed By: #### 3 040-3 #### CHITO SIDDIQI (70185) [facility] [facility] ([facility] [place] [address] [place] [address] Ketones (U) [Mass/Vol] Negative Normal NEGATIVE [facility] Comment on above: Performed By: #### 3 040-3 #### CHITO SIDDIQI (48232) [facility] ([facility] [place]) [address] [place] [address] Leukocyte esterase Auto test strip Ql (U) 500 Alexander/uL Abnormal NEGATIVE [facility] Comment on above: Performed By: #### 3 040-3 #### CHITO SIDDIQI (89933) [facility] ([facility]) [address] [place], [place] [id number] Nitrite Auto test strip Ql (U) Negative Normal NEGATIVE [facility] Comment on above: Performed By: #### 3 040-3 #### CHITO SIDDIQI (89130) [facility] ([facility] [place]) [address] [place], [place] [id number] pH (U) 6.0 [pH] Normal 5.0, 5.5, 6.0, 6.5, 7.0, 7.5, 8.0 [facility] Comment on above: Performed By: #### 3 040-3 #### CHITO SIDDIQI (90698) [facility] ([facility] [place]) [address] [place] [address] Protein (U) [Mass/Vol] 30 (1+) Abnormal NEGATIVE, 10 (TRACE), 20 (TRACE) [facility] Comment on above: Performed By: #### 3 040-3 #### CHITO SIDDIQI (54708) [facility] ([facility]) [address] [place] [address] RBC (U) [#/Vol] Negative Normal NEGATIVE [facility] Comment on above: Performed By: #### 3 040-3 #### CHITO SIDDIQI (96519) [facility] ([facility]) [address] [place] [address] Specific gravity (U) [Rel density] >1.050 Normal 1.005-1.035 [facility] Comment on above: Result Comment: [facility] of >1.050 may be falsely elevated due to interfering substances (e.g. radiopaque contrast dye, mannitol). If clinically necessary, an alternate test method is available by calling the laboratory within 24 hours of specimen collection. Performed By: #### 3 040-3 #### CHITO SIDDIQI (80420) [facility] ([facility]) [address] [place] [address] Urobilinogen (U) [Mass/Vol] Normal Normal Normal [facility] Comment on above: Performed By: #### 3 040-3 #### CHITO SIDDIQI (95548) [facility] ([facility]) [address] [place] [address] Urinalysis microscopic panel Auto Ql (U)on 06-29-2024 Bacteria Auto (Urine sed) [#/Area] 1+ /HPF Abnormal NONE SEEN [facility] Comment on above: Performed By: #### 3 040-3 #### CHITO SIDDIQI (29626) [facility] ([facility]) [address] [place] [address] Epithelial cells.squamous Auto (Urine sed) [#/Area] 1-9 (SPARSE) Normal Reference range not established. [facility] Comment on above: Performed By: #### 3 040-3 #### CHITO SIDDIQI (89693) [facility] ([facility]) [address] [place], [place] [address] Mucus Auto (Urine sed) [#/Area] FEW Normal Reference range not established. [facility] Comment on above: Performed By: #### 3 040-3 #### CHITO SIDDIQI (85393) [facility] ([facility]) [address] [place] [id number] RBC Auto (Urine sed) [#/Area] 3-5 Normal NONE, 1-2, 3-5 [facility] Comment on above: Performed By: #### 3 040-3 #### CHITO SIDDIQI (55756) [facility] ([facility]) [address] [place], [place] [address] WBC Auto (Urine sed) [#/Area] >50 Abnormal 1-5, NONE [facility] Comment on above: Performed By: #### 3 040-3 #### CHITO SIDDIQI (71882) [facility] ([facility]) [address] [place] [address] XR CHEST 1 VIEWon 06-29-2024 XR CHEST 1 VIEW STUDY: Chest Radiograph; 06/29/2024 10:59AM INDICATION: Post central line placement. COMPARISON: 06/29/2024 CT CTA Chest. ACCESSION NUMBER(S): [id number] ORDERING CLINICIAN: FINN ESTRELLA TECHNIQUE: Frontal chest [...] zones. Signed by Jay Perdomo MD Normal [facility] Absolute lymphocyte countOrd ered By: Albert Mccoy on 06-18-2024 Lymphocytes Auto (Unsp spec) [#/Vol] 1.22 10*3/uL 0.83-4.51 [facility] Absolute neutrophil countOrd ered By: Albert Mccoy on 06-18-2024 Neutrophils (Bld) [#/Vol] 3.2 10*3/uL 2.0-7.7 [facility] Alcohol, Blood (Medical)-Ser umon 06-18-2024 SERUM ETOH < 10.1 Normal <=10.0 [facility] Comment on above: Result Comment: This test is for medical purposes only. The legaldefinition of intoxication varies according to local law. Performed By: #### L 100.0100, L505.5000, L500.4050, L501.6901, L501.9100 ####[facility] [address] [place], [address] Amphetamine detection with 1 000 ng/mL as cutoffOrdered By: Albert Ferrarabeverly on 06-18-2024 Amphetamines Screen method >1000 ng/mL Ql (U) Negative < 200 ng/mL [facility] Anion gap in Serum or Plasma Ordered By: Albert Mccoy on 06-18-2024 Anion gap [Moles/Vol] 11 mmol/L 5-15 [facility] Automated lymphocyte count a s percentage of total leukocytesOrdered By: Albert Mccoy on 06-18-2024 Lymphocytes/100 WBC Auto (Unsp spec) 24.5 % 19-41 [facility] BUN/creatinine ratioOrdered By: Albert Mccoy on 06-18-2024 Urea nitrogen/Creatinine [Mass ratio] 23.5 mg/mg High 10-20 [facility] Basophil percentageOrdered B y: Albert Alembeverly on 06-18-2024 Basophils/100 WBC (Bld) 0.6 % 0-1 [facility] Bedside Glucoseon 06-18-2024 FINGERSTICK GLU 414 mg/dL High 74-106 [facility] Comment on above: Result Comment: DELLA GEMENT OF PATIENT CARE PER NURSING PROTOCOL Performed By: #### L 501.080 ####[facility] [address] [place], [place], [id number] FINGERSTICK GLU 409 mg/dL High 74-106 [facility] Comment on above: Result Comment: DELLA GEMENT OF PATIENT CARE PER NURSING PROTOCOL Performed By: #### L 501.080 ####[facility] [address] [place], [place], [id number] Bilirubin, totalOrdered By: Albert Mccoy on 06-18-2024 Bilirubin [Mass/Vol] 0.34 mg/dL 0.00-1.30 [facility] CBC W/Diff, Automatedon Absolute Lymph 1.22 X10 3/uL Normal 0.83-4.51 [facility] Comment on above: Performed By: #### L 100.0100, L505.5000, L500.4050, L501.6901, L501.9100 ####[facility] [address] [place], [address] Absolute Neut 3.2 X10 3/uL Normal 2.0-7.7 [facility] Comment on above: Performed By: #### L 100.0100, L505.5000, L500.4050, L501.6901, L501.9100 ####[facility] [address] [place], [address] Basophils/100 WBC (Bld) 0.6 % Normal 0-1 [facility] Comment on above: Performed By: #### L 100.0100, L505.5000, L500.4050, L501.6901, L501.9100 ####[facility] [address] [place], [address] Eosinophils/100 WBC (Bld) 3.0 % Normal 0-5 [facility] Comment on above: Performed By: #### L 100.0100, L505.5000, L500.4050, L501.6901, L501.9100 ####[facility] [address] [place], [address] Erythrocyte distribution width (RBC) [Ratio] 13.7 % Normal 11.6-14.6 [facility] Comment on above: Performed By: #### L 100.0100, L505.5000, L500.4050, L501.6901, L501.9100 ####[facility] [address] [place], [address] Hematocrit (Bld) [Volume fraction] 43.7 % Normal 37-47 [facility] Comment on above: Performed By: #### L 100.0100, L505.5000, L500.4050, L501.6901, L501.9100 ####[facility] [address] [place], [address] Hemoglobin (Bld) [Mass/Vol] 14.7 g/dL Normal 12.0-15.0 [facility] Comment on above: Performed By: #### L 100.0100, L505.5000, L500.4050, L501.6901, L501.9100 ####[facility] [address] [place], [address] IG% 0.600 Normal 0.0-0.9 [facility] Comment on above: Result Comment: IG% - Immature Granulocytes (promyelocytes, myelocytes andmetamyelocytes) > 1% indicates that a LEFT SHIFT is Present. Performed By: #### L 100.0100, L505.5000, L500.4050, L501.6901, L501.9100 ####[facility] [address] [place], [address] Lymphocytes/100 WBC (Bld) 24.5 % Normal 19-41 [facility] Comment on above: Performed By: #### L 100.0100, L505.5000, L500.4050, L501.6901, L501.9100 ####[facility] [address] [place], [address] MCH (RBC) [Entitic mass] 28.7 pg Normal 27.0-32.0 [facility] Comment on above: Performed By: #### L 100.0100, L505.5000, L500.4050, L501.6901, L501.9100 ####[facility] [address] [place], [address] MCHC (RBC) [Mass/Vol] 33.6 g/dL Normal 32-36 [facility] Comment on above: Performed By: #### L 100.0100, L505.5000, L500.4050, L501.6901, L501.9100 ####[facility] [address] [place], [address] MCV (RBC) [Entitic vol] 85.2 fL Normal 81-99 [facility] Comment on above: Performed By: #### L 100.0100, L505.5000, L500.4050, L501.6901, L501.9100 ####[facility] [address] [place], [address] Monocytes/100 WBC (Bld) 7.8 % Normal 0-10 [facility] Comment on above: Performed By: #### L 100.0100, L505.5000, L500.4050, L501.6901, L501.9100 ####[facility] [address] [place], [address] Neutrophils/100 WBC (Bld) 63.5 % Normal 47-70 [facility] Comment on above: Performed By: #### L 100.0100, L505.5000, L500.4050, L501.6901, L501.9100 ####[facility] [address] [place], [address] Nucleated RBC (Bld) [#/Vol] 0 10*3/uL Normal 0-5 [facility] Comment on above: Performed By: #### L 100.0100, L505.5000, L500.4050, L501.6901, L501.9100 ####[facility] [address] [place], [address] Platelet mean volume (Bld) [Entitic vol] 10.3 fL Normal 6.2-12.0 [facility] Comment on above: Performed By: #### L 100.0100, L505.5000, L500.4050, L501.6901, L501.9100 ####[facility] [address] [place], [address] Platelets (Bld) [#/Vol] 182 10*3/uL Normal 150-450 [facility] Comment on above: Performed By: #### L 100.0100, L505.5000, L500.4050, L501.6901, L501.9100 ####[facility] [address] [place], [address] RBC (Bld) [#/Vol] 5.13 10*6/uL Normal 4.2-5.4 [facility] Comment on above: Performed By: #### L 100.0100, L505.5000, L500.4050, L501.6901, L501.9100 ####[facility] [address] [place], [address] RDW SD 43.1 fl Normal 35.1-43.9 [facility] Comment on above: Performed By: #### L 100.0100, L505.5000, L500.4050, L501.6901, L501.9100 ####[facility] [address] [place], [address] WBC (Bld) [#/Vol] 5.0 10*3/uL Normal 4.4-11.0 [facility] Comment on above: Performed By: #### L 100.0100, L505.5000, L500.4050, L501.6901, L501.9100 ####[facility] [address] [place], [address] Carbon dioxide, total [Moles /volume] in Central venous bloodOrdered By: Albert Mccoy on 06-18-2024 CO2 [Moles/Vol] 23.4 mmol/L 21.0-32.0 [facility] Chloride assayOrdered By: Davey Mccoy on 06-18-2024 Chloride [Moles/Vol] 101 mmol/L 98-108 [facility] Comprehensive Metabolic Prof ilon 06-18-2024 Albumin [Mass/Vol] 3.6 g/dL Normal 3.5-5.0 [facility] Comment on above: Performed By: #### L 100.0100, L505.5000, L500.4050, L501.6901, L501.9100 ####[facility] [address] [place], [address] Albumin/Globulin [Mass ratio] 1.3 {ratio} Normal 0.9-2.4 [facility] Comment on above: Performed By: #### L 100.0100, L505.5000, L500.4050, L501.6901, L501.9100 ####[facility] [address] [place], [address] ALK PHOS 91 U/L Normal 35-104 [facility] Comment on above: Performed By: #### L 100.0100, L505.5000, L500.4050, L501.6901, L501.9100 ####[facility] [address] [place], [address] ALT [Catalytic activity/Vol] 54 U/L High <=34 [facility] Comment on above: Performed By: #### L 100.0100, L505.5000, L500.4050, L501.6901, L501.9100 ####[facility] [address] [place], [address] AST [Catalytic activity/Vol] 52 U/L High <=31 [facility] Comment on above: Performed By: #### L 100.0100, L505.5000, L500.4050, L501.6901, L501.9100 ####[facility] [address] [place], [address] Bilirubin [Mass/Vol] 0.34 mg/dL Normal 0.00-1.30 [facility] Comment on above: Performed By: #### L 100.0100, L505.5000, L500.4050, L501.6901, L501.9100 ####[facility] [address] [place], [address] BUN/CRE 23.5 RATIO High 10-20 [facility] Comment on above: Performed By: #### L 100.0100, L505.5000, L500.4050, L501.6901, L501.9100 ####[facility] [address] [place], [address] Calcium [Mass/Vol] 8.7 mg/dL Normal 7.6-11.0 [facility] Comment on above: Performed By: #### L 100.0100, L505.5000, L500.4050, L501.6901, L501.9100 ####[facility] [address] [place], [address] Chloride [Moles/Vol] 101 mmol/L Normal 98-108 [facility] Comment on above: Performed By: #### L 100.0100, L505.5000, L500.4050, L501.6901, L501.9100 ####[facility] [address] [place], [address] CO2 [Moles/Vol] 23.4 mmol/L Normal 21.0-32.0 [facility] Comment on above: Performed By: #### L 100.0100, L505.5000, L500.4050, L501.6901, L501.9100 ####[facility] [address] [place], [address] Creatinine [Mass/Vol] 0.53 mg/dL Low 0.70-1.20 [facility] Comment on above: Performed By: #### L 100.0100, L505.5000, L500.4050, L501.6901, L501.9100 ####[facility] [address] [place], [address] ECRCL 110.46 ml/min Normal 50-250 [facility] Comment on above: Performed By: #### L 100.0100, L505.5000, L500.4050, L501.6901, L501.9100 ####[facility] [address] [place], [address] GAP 11 Normal 5-15 [facility] Comment on above: Performed By: #### L 100.0100, L505.5000, L500.4050, L501.6901, L501.9100 ####[facility] [address] [place], [address] GFR/1.73 sq M.predicted among non-blacks MDRD (S/P/Bld) [Vol rate/Area] 110 mL/min/{1.73_m2} Normal >60 [facility] Comment on above: Result Comment: mL/m in/1.73m2 CKD-EPI Creatinine Equation (2020) Performed By: #### L 100.0100, L505.5000, L500.4050, L501.6901, L501.9100 ####[facility] [address] [place], [address] Globulin (S) [Mass/Vol] 2.7 g/dL Normal 2.2-4.2 [facility] Comment on above: Performed By: #### L 100.0100, L505.5000, L500.4050, L501.6901, L501.9100 ####[facility] [address] [place], [address] Glucose [Mass/Vol] 429 mg/dL High 70-99 [facility] Comment on above: Performed By: #### L 100.0100, L505.5000, L500.4050, L501.6901, L501.9100 ####[facility] [address] [place], [address] Potassium [Moles/Vol] 4.3 mmol/L Normal 3.3-5.1 [facility] Comment on above: Performed By: #### L 100.0100, L505.5000, L500.4050, L501.6901, L501.9100 ####[facility] [address] [place], [address] Sodium [Moles/Vol] 135 mmol/L Normal 133-145 [facility] Comment on above: Performed By: #### L 100.0100, L505.5000, L500.4050, L501.6901, L501.9100 ####[facility] [address] [place], [address] T PROT 6.4 g/dL Normal 5.9-8.4 [facility] Comment on above: Performed By: #### L 100.0100, L505.5000, L500.4050, L501.6901, L501.9100 ####[facility] [address] [place], [address] Urea nitrogen [Mass/Vol] 13 mg/dL Normal 4-19 [facility] Comment on above: Performed By: #### L 100.0100, L505.5000, L500.4050, L501.6901, L501.9100 ####[facility] [address] [place], [address] Emergency Department Summary on 06-18-2024 Emergency Department Summary Normal [facility] Eosinophil percentageOrdered By: Albert Mccoy on 06-18-2024 Eosinophils/100 WBC (Bld) 3.0 % 0-5 [facility] Erythrocyte distribution wid th ratioOrdered By: Albert Mccoy on 06-18-2024 Erythrocyte distribution width (RBC) [Ratio] 13.7 % 11.6-14.6 [facility] Erythrocyte distribution wid th standard deviationOrdered By: Albert Mccoy on 06-18-2024 Erythrocyte distribution width (RBC) [Ratio] 43.1 fl 35.1-43.9 [facility] Glomerular filtration rate ( GFR) estimation/1.73 sq m using serum, plasma, or whole bOrdered By: Albert Mccoy on 06-18-2024 GFR/1.73 sq M.predicted among non-blacks MDRD (S/P/Bld) [Vol rate/Area] 110 mL/min/{1.73_m2} >60 [facility] Comment on above: mL/min/1.73m2 CKD-EP I Creatinine Equation (2020) [facility] By: Albert Mccoy on 06-18-2024 Glucose [Mass/Vol] 414 mg/dL High 74-106 [facility] Comment on above: MANAGEMENT OF PATIEN T CARE PER NURSING PROTOCOL Hematocrit Auto (Bld) [Volum e fraction]Ordered By: Albert Mccoy on 06-18-2024 Hematocrit (Bld) [Volume fraction] 43.7 % 37-47 [facility] Hemoglobin measurementOrdere d By: Albert Mccoy on 06-18-2024 Hemoglobin (Bld) [Mass/Vol] 14.7 g/dL 12.0-15.0 [facility] Immature granulocytes/100 WB C Auto (Bld)Ordered By: Albert Mccoy on 06-18-2024 Immature granulocytes/100 WBC (Bld) 0.600 % 0.0-0.9 [facility] Comment on above: IG% - Immature Granu locytes (promyelocytes, myelocytes and metamyelocytes) > 1% indicates that a LEFT SHIFT is Present. L501.6901on 06-18-2024 BETA-HYDROXYBUT 0.5 mmol/L Normal 0.0-0.3 [facility] Comment on above: Performed By: #### L 100.0100, L505.5000, L500.4050, L501.6901, L501.9100 ####[facility] [address] [place], [place], [id number] Laboratory - Chemistry and C hemistry - challengeOrdered By: Albert Mccoy on 06-18-2024 AST [Catalytic activity/Vol] 52 U/L High <32 [facility] MCV (mean corpuscular volume ) determinationOrdered By: Albert Mccoy on 06-18-2024 MCV (RBC) [Entitic vol] 85.2 fL 81-99 [facility] Mean corpuscular hemoglobin (MCH) determinationOrdered By: Albert Mccoy on 06-18-2024 MCH (RBC) [Entitic mass] 28.7 pg 27.0-32.0 [facility] Mean corpuscular hemoglobin concentration (MCHC) determinationOrdered By: Albert Mccoy on 06-18-2024 MCHC (RBC) [Mass/Vol] 33.6 g/dL 32-36 [facility] Mean platelet volume determi nationOrdered By: Albert Mccoy on 06-18-2024 Platelet mean volume (Bld) [Entitic vol] 10.3 fL 6.2-12.0 [facility] Monocyte percentageOrdered B y: Albert Mccoy on 06-18-2024 Monocytes/100 WBC (Bld) 7.8 % 0-10 [facility] Neutrophil percentageOrdered By: Albert Mccoy on 06-18-2024 Neutrophils/100 WBC (Bld) 63.5 % 47-70 [facility] No Panel InformationOrdered By: Albert Mccoy on 06-18-2024 Urine Buprenorphine Qualitative Negative < 200 ng/mL [facility] Urine Oxycodone Screen Negative < 100 ng/mL [facility] Beta-Hydroxybutyric Acid mmol/L 0.5 mmol/L 0.0-0.3 [facility] Nucleated red blood cell per centageOrdered By: Albert Mccoy on 06-18-2024 Nucleated RBC/100 WBC (Bld) [Ratio] 0 % 0-5 [facility] Platelet countOrdered By: Davey Mccoy on 06-18-2024 Platelets (Bld) [#/Vol] 182 10*3/uL 150-450 [facility] Potassium measurement (mass/ volume)Ordered By: Albert Mccoy on 06-18-2024 Potassium (Unsp spec) [Mass/Vol] 4.3 mmol/L 3.3-5.1 [facility] Quantitative urine opiates m easurementOrdered By: Albert Mccoy on 06-18-2024 Opiates Ql (U) Negative < 300 ng/mL [facility] RBC Auto (Bld) [#/Vol]Ordere d By: Albert Mccoy on 06-18-2024 RBC (Bld) [#/Vol] 5.13 10*6/uL 4.2-5.4 [facility] Screening urine fentanyl saeed surementOrdered By: Albert Mccoy on 06-18-2024 fentaNYL Screen Ql (U) Negative [facility] Serum creatinine measurement (mass/volume)Ordered By: Albert Mccoy on 06-18-2024 Creatinine [Mass/Vol] 0.53 mg/dL Low 0.70-1.20 [facility] Serum globulin measurementOr dered By: Albert Mccoy on 06-18-2024 Globulin (S) [Mass/Vol] 2.7 g/dL 2.2-4.2 [facility] Serum glucose measurement (m ass/volume)Ordered By: Albert Mccoy on 06-18-2024 Glucose [Mass/Vol] 429 mg/dL High 70-99 [facility] Serum or plasma alanine ortiz otransferase (ALT) measurementOrdered By: Albert Mccoy on 06-18-2024 ALT [Catalytic activity/Vol] 54 U/L High <35 [facility] Serum or plasma albumin anna urement (mass/volume)Ordered By: Albert Mccoy on 06-18-2024 Albumin [Mass/Vol] 3.6 g/dL 3.5-5.0 [facility] Serum or plasma albumin/glob ulin mass ratioOrdered By: Albert Mccoy on 06-18-2024 Albumin/Globulin [Mass ratio] 1.3 {ratio} 0.9-2.4 [facility] Serum or plasma alkaline zeke sphatase measurementOrdered By: Albert Mccoy on 06-18-2024 ALP [Catalytic activity/Vol] 91 U/L 35-104 [facility] Serum or plasma calcium anna urement (mass/volume)Ordered By: Albert Mccoy on 06-18-2024 Calcium [Mass/Vol] 8.7 mg/dL 7.6-11.0 [facility] Serum or plasma ethanol anna urement (mass/volume)Ordered By: Albert Mccoy on 06-18-2024 Ethanol [Mass/Vol] mg/dL <10.1 [facility] Comment on above: This test is for med ical purposes only. The legal definition of intoxication varies according to local law. Serum or plasma urea nitroge n measurement (mass/volume)Ordered By: Albert Mccoy on 06-18-2024 Urea nitrogen [Mass/Vol] 13 mg/dL 4-19 [facility] Sodium levelOrdered By: Albert Mccoy on 06-18-2024 Sodium [Moles/Vol] 135 mmol/L 133-145 [facility] Total proteinOrdered By: Donna Mccoy on 06-18-2024 Protein [Mass/Vol] 6.4 g/dL 5.9-8.4 [facility] Urine Drug Screen (VIST[facility])on 06-18-2024 AMPHETAMINES Negative Normal <1000 ng/mL [facility] Comment on above: Performed By: #### L 100.0100, L505.5000, L500.4050, L501.6901, L501.9100 ####[facility] [address] [place] [address] BARBITIURATES Negative Normal < 200 ng/mL [facility] Comment on above: Performed By: #### L 100.0100, L505.5000, L500.4050, L501.6901, L501.9100 ####[facility] [address] [place] [address] BENZODIAZIPINE Negative Normal < 200 ng/mL [facility] Comment on above: Performed By: #### L 100.0100, L505.5000, L500.4050, L501.6901, L501.9100 ####[facility] [address] [place] [address] BUP Ur Drug Scr Negative Normal < 200 ng/mL [facility] Comment on above: Performed By: #### L 100.0100, L505.5000, L500.4050, L501.6901, L501.9100 ####[facility] [address] [place] [address] COCAINE Positive Normal < 300 ng/mL [facility] Comment on above: Result Comment: If c onfirmation testing is needed, a separate order will berequired to send out testing to the reference laboratory. Performed By: #### L 100.0100, L505.5000, L500.4050, L501.6901, L501.9100 ####[facility] [address] [place], [address] Fentanyl Negative Normal [facility] Comment on above: Performed By: #### L 100.0100, L505.5000, L500.4050, L501.6901, L501.9100 ####[facility] [address] [place], [address] METHADONE Negative Normal < 300 ng/mL [facility] Comment on above: Performed By: #### L 100.0100, L505.5000, L500.4050, L501.6901, L501.9100 ####[facility] [address] [place], [address] OPIATES Negative Normal < 300 ng/mL [facility] Comment on above: Performed By: #### L 100.0100, L505.5000, L500.4050, L501.6901, L501.9100 ####[facility] [address] [place], [address] OXYCODONE Negative Normal < 100 ng/mL [facility] Comment on above: Performed By: #### L 100.0100, L505.5000, L500.4050, L501.6901, L501.9100 ####[facility] [address] [place], [place], [phone] PCP Negative Normal < 25 ng/mL [facility] Comment on above: Performed By: #### L 100.0100, L505.5000, L500.4050, L501.6901, L501.9100 ####[facility] [address] [place], [address] THC Negative Normal < 50 ng/mL [facility] Comment on above: Performed By: #### L 100.0100, L505.5000, L500.4050, L501.6901, L501.9100 ####[facility] [address] [place], [address] Urine benzodiazepine levelOr dered By: Albert Mccoy on 06-18-2024 Benzodiazepines Ql (U) Negative < 200 ng/mL [facility] Urine cocaine levelOrdered B y: Albert Ferraratylerlissette on 06-18-2024 Cocaine Ql (U) Positive < 300 ng/mL [facility] Comment on above: If confirmation test ing is needed, a separate order will be required to send out testing to the reference laboratory. Urine ntizz-9-hbguufrrvgsygl abinol (THC) measurementOrdered By: Albert Mccoy on 06-18-2024 Cannabinoids Screen Ql (U) Negative < 50 ng/mL [facility] Urine phencyclidine (PCP) de tectionOrdered By: Albert Mccoy on 06-18-2024 Phencyclidine Ql (U) Negative < 25 ng/mL [facility] White blood cell (WBC) count Ordered By: Albert Mccoy on 06-18-2024 WBC (Bld) [#/Vol] 5.0 10*3/uL 4.4-11.0 [facility] Absolute lymphocyte countOrd ered By: Terifreddie Franklin on 05-11-2024 Lymphocytes Auto (Unsp spec) [#/Vol] 1.28 10*3/uL 0.83-4.51 [facility] Absolute neutrophil countOrd ered By: Teri Franklin on 05-11-2024 Neutrophils (Bld) [#/Vol] 3.3 10*3/uL 2.0-7.7 [facility] Automated lymphocyte count a s percentage of total leukocytesOrdered By: Teri Franklin on 05-11-2024 Lymphocytes/100 WBC Auto (Unsp spec) 23.6 % 19-41 [facility] Basic Metabolic Profile (BMP )on 05-11-2024 BUN/CRE 33.9 RATIO High 10-20 [facility] Comment on above: Order Comment: 515-1 Performed By: #### L 501.5200, L501.6710, L100.0100, L500.2500 ####[facility] [address] [place], [address] CA,Total 9.0 mg/dL Normal 8.5-10.1 [facility] Comment on above: Order Comment: 515-1 Performed By: #### L 501.5200, L501.6710, L100.0100, L500.2500 ####[facility] [address] [place], [address] Chloride [Moles/Vol] 104 mmol/L Normal 98-107 [facility] Comment on above: Order Comment: 515-1 Performed By: #### L 501.5200, L501.6710, L100.0100, L500.2500 ####[facility] [address] [place], [address] CO2 [Moles/Vol] 26.0 mmol/L Normal 21.0-32.0 [facility] Comment on above: Order Comment: 515-1 Performed By: #### L 501.5200, L501.6710, L100.0100, L500.2500 ####[facility] [address] [place], [address] Creatinine [Mass/Vol] 0.62 mg/dL Normal 0.55-1.02 [facility] Comment on above: Order Comment: 515-1 Result Comment: The validity of the calculated GFR GFRAA in patients over70 years has not been determined. Clinical correlation isessential. Performed By: #### L 501.5200, L501.6710, L100.0100, L500.2500 ####[facility] [address] [place], [address] EST GFR - AA 129 mL/min Normal >60 [facility] Comment on above: Order Comment: 515-1 Result Comment: Afri can Japanese GFR Calc Performed By: #### L 501.5200, L501.6710, L100.0100, L500.2500 ####[facility] [address] [place], [address] GAP 6 Normal 5-15 [facility] Comment on above: Order Comment: 515-1 Performed By: #### L 501.5200, L501.6710, L100.0100, L500.2500 ####[facility] [address] [place], [address] GFR/1.73 sq M.predicted among non-blacks MDRD (S/P/Bld) [Vol rate/Area] 107 mL/min/{1.73_m2} Normal >60 [facility] Comment on above: Order Comment: 515-1 Result Comment: Non- GFR Calc Performed By: #### L 501.5200, L501.6710, L100.0100, L500.2500 ####[facility] [address] [place], [address] Glucose [Mass/Vol] 239 mg/dL High 74-106 [facility] Comment on above: Order Comment: 515-1 Result Comment: Gluc ose result greater than or equal to 200 mg/dLsuggests DIABETES MELLITUS per A.D.A. criteria. Performed By: #### L 501.5200, L501.6710, L100.0100, L500.2500 ####[facility] [address] [place], [address] Potassium [Moles/Vol] 3.8 mmol/L Normal 3.5-5.1 [facility] Comment on above: Order Comment: 515-1 Performed By: #### L 501.5200, L501.6710, L100.0100, L500.2500 ####[facility] [address] [place], [address] Sodium [Moles/Vol] 136 mmol/L Normal 136-145 [facility] Comment on above: Order Comment: 515-1 Performed By: #### L 501.5200, L501.6710, L100.0100, L500.2500 ####[facility] [address] [place], [address] Urea nitrogen [Mass/Vol] 21 mg/dL High 10-30 [facility] Comment on above: Order Comment: 515-1 Performed By: #### L 501.5200, L501.6710, L100.0100, L500.2500 ####[facility] [address] [place], [address] Basophil percentageOrdered B y: Teri Franklin on 05-11-2024 Basophils/100 WBC (Bld) 0.7 % 0-1 [facility] Blood urea nitrogen (BUN)/cr eatinine ratioOrdered By: Teri Franklin on 05-11-2024 Urea nitrogen/Creatinine [Mass ratio] 33.9 mg/mg High - [facility] C-reactive protein measureme nt by high sensitivity methodOrdered By: Teri Franklin on 05-11-2024 C-reactive protein measurement by high sensitivity method 3.91 mg/L High 0.0-3.0 [facility] Comment on above: C-Reactive Protein ( CRP) provides useful information for thediagnosis, therapy and monitoring of inflammatory processesand associated diseases. For the evaluation of Relative Riskfor Cardiovascular Disease, a High Sensitivity CRP (HSCRP)should be ordered. CBC W/Diff, Automatedon 04-16 Absolute Lymph 1.28 X10 3/uL Normal 0.83-4.51 [facility] Comment on above: Order Comment: 515-1 Performed By: #### L 501.5200, L501.6710, L100.0100, L500.2500 ####[facility] [address] [place], [address] Absolute Neut 3.3 X10 3/uL Normal 2.0-7.7 [facility] Comment on above: Order Comment: 515-1 Performed By: #### L 501.5200, L501.6710, L100.0100, L500.2500 ####[facility] [address] [place], [address] Basophils/100 WBC (Bld) 0.7 % Normal 0-1 [facility] Comment on above: Order Comment: 515-1 Performed By: #### L 501.5200, L501.6710, L100.0100, L500.2500 ####[facility] [address] [place], [address] Eosinophils/100 WBC (Bld) 1.8 % Normal 0-5 [facility] Comment on above: Order Comment: 515-1 Performed By: #### L 501.5200, L501.6710, L100.0100, L500.2500 ####[facility] [address] [place], [address] Erythrocyte distribution width (RBC) [Ratio] 14.4 % Normal 11.6-14.6 [facility] Comment on above: Order Comment: 515-1 Performed By: #### L 501.5200, L501.6710, L100.0100, L500.2500 ####[facility] [address] [place], [address] Hematocrit (Bld) [Volume fraction] 34.5 % Low 37-47 [facility] Comment on above: Order Comment: 515-1 Performed By: #### L 501.5200, L501.6710, L100.0100, L500.2500 ####[facility] [address] [place], [address] Hemoglobin (Bld) [Mass/Vol] 10.9 g/dL Low 12.0-15.0 [facility] Comment on above: Order Comment: 515-1 Performed By: #### L 501.5200, L501.6710, L100.0100, L500.2500 ####[facility] [address] [place], [address] IG% 2.000 High 0.0-0.9 [facility] Comment on above: Order Comment: 515-1 Result Comment: IG% - Immature Granulocytes (promyelocytes, myelocytes andmetamyelocytes) > 1% indicates that a LEFT SHIFT is Present. Performed By: #### L 501.5200, L501.6710, L100.0100, L500.2500 ####[facility] [address] [place], [address] Lymphocytes/100 WBC (Bld) 23.6 % Normal 19-41 [facility] Comment on above: Order Comment: 515-1 Performed By: #### L 501.5200, L501.6710, L100.0100, L500.2500 ####[facility] [address] [place], [address] MCH (RBC) [Entitic mass] 27.8 pg Normal 27.0-32.0 [facility] Comment on above: Order Comment: 515-1 Performed By: #### L 501.5200, L501.6710, L100.0100, L500.2500 ####[facility] [address] [place], [address] MCHC (RBC) [Mass/Vol] 31.6 g/dL Low 32-36 [facility] Comment on above: Order Comment: 515-1 Performed By: #### L 501.5200, L501.6710, L100.0100, L500.2500 ####[facility] [address] [place], [address] MCV (RBC) [Entitic vol] 88.0 fL Normal 81-99 [facility] Comment on above: Order Comment: 515-1 Performed By: #### L 501.5200, L501.6710, L100.0100, L500.2500 ####[facility] [address] [place], [address] Monocytes/100 WBC (Bld) 11.8 % High 0-10 [facility] Comment on above: Order Comment: 515-1 Performed By: #### L 501.5200, L501.6710, L100.0100, L500.2500 ####[facility] [address] [place], [address] Neutrophils/100 WBC (Bld) 60.1 % Normal 47-70 [facility] Comment on above: Order Comment: 515-1 Performed By: #### L 501.5200, L501.6710, L100.0100, L500.2500 ####[facility] [address] [place], [address] Nucleated RBC (Bld) [#/Vol] 0 10*3/uL Normal 0-5 [facility] Comment on above: Order Comment: 515-1 Performed By: #### L 501.5200, L501.6710, L100.0100, L500.2500 ####[facility] [address] [place], [address] Platelet mean volume (Bld) [Entitic vol] 10.1 fL Normal 6.2-12.0 [facility] Comment on above: Order Comment: 515-1 Performed By: #### L 501.5200, L501.6710, L100.0100, L500.2500 ####[facility] [address] [place], [address] Platelets (Bld) [#/Vol] 375 10*3/uL Normal 150-450 [facility] Comment on above: Order Comment: 515-1 Performed By: #### L 501.5200, L501.6710, L100.0100, L500.2500 ####[facility] [address] [place], [address] RBC (Bld) [#/Vol] 3.92 10*6/uL Low 4.2-5.4 [facility] Comment on above: Order Comment: 515-1 Performed By: #### L 501.5200, L501.6710, L100.0100, L500.2500 ####[facility] [address] [place], [address] RDW SD 45.2 fl High 35.1-43.9 [facility] Comment on above: Order Comment: 515-1 Performed By: #### L 501.5200, L501.6710, L100.0100, L500.2500 ####[facility] [address] [place], [address] WBC (Bld) [#/Vol] 5.4 10*3/uL Normal 4.4-11.0 [facility] Comment on above: Order Comment: 515-1 Performed By: #### L 501.5200, L501.6710, L100.0100, L500.2500 ####[facility] [address] [place], [address] CRPon 05-11-2024 C-REACTIVE PROT 3.91 mg/L High 0.0-3.0 [facility] Comment on above: Order Comment: 515-1 Result Comment: C-Re active Protein (CRP) provides useful information for thediagnosis, therapy and monitoring of inflammatory processesand associated diseases. For the evaluation of Relative Riskfor Cardiovascular Disease, a High Sensitivity CRP (HSCRP)should be ordered. Performed By: #### L 501.5200, L501.6710, L100.0100, L500.2500 ####[facility] [address] [place], [address] Carbon dioxide measurementOr dered By: Teri Franklin on 05-11-2024 CO2 [Moles/Vol] 26.0 mmol/L 21.0-32.0 [facility] Chloride measurementOrdered By: Teri Franklin on 05-11-2024 Chloride [Moles/Vol] 104 mmol/L 98-107 [facility] Eosinophil percentageOrdered By: Teri Franklin on 05-11-2024 Eosinophils/100 WBC (Bld) 1.8 % 0-5 [facility] Erythrocyte distribution wid th ratioOrdered By: Teri Franklin on 05-11-2024 Erythrocyte distribution width (RBC) [Ratio] 14.4 % 11.6-14.6 [facility] Erythrocyte distribution wid th standard deviationOrdered By: Teri Franklin on 05-11-2024 Erythrocyte distribution width (RBC) [Ratio] 45.2 fl High 35.1-43.9 [facility] Glomerular filtration rate ( GFR) estimationOrdered By: Teri Franklin on 05-11-2024 GFR/1.73 sq M.predicted among non-blacks MDRD (S/P/Bld) [Vol rate/Area] 107 mL/min/{1.73_m2} >60 [facility] Comment on above: Non- GFR Calc Glucose measurementOrdered B y: Teri Franklin on 05-11-2024 Glucose [Mass/Vol] 239 mg/dL High 74-106 [facility] Comment on above: Glucose result great er than or equal to 200 mg/dLsuggests DIABETES MELLITUS per A.D.A. criteria. Hematocrit Auto (Bld) [Volum e fraction]Ordered By: Teri Franklin on 05-11-2024 Hematocrit (Bld) [Volume fraction] 34.5 % Low 37-47 [facility] Hemoglobin measurementOrdere d By: Teri Franklin on 05-11-2024 Hemoglobin (Bld) [Mass/Vol] 10.9 g/dL Low 12.0-15.0 [facility] Immature granulocytes/100 WB C Auto (Bld)Ordered By: Teri Franklin on 05-11-2024 Immature granulocytes/100 WBC (Bld) 2.000 % High 0.0-0.9 [facility] Comment on above: IG% - Immature Granu locytes (promyelocytes, myelocytes and metamyelocytes) > 1% indicates that a LEFT SHIFT is Present. MCV (mean corpuscular volume ) determinationOrdered By: Teri Franklin on 05-11-2024 MCV (RBC) [Entitic vol] 88.0 fL 81-99 [facility] Magnesiumon 05-11-2024 Magnesium [Mass/Vol] 2.0 mg/dL Normal 1.6-2.6 [facility] Comment on above: Order Comment: 515-1 Performed By: #### L 501.2230, L501.6710, L100.0100, L500.2500 ####[facility] [address] [place], [address] Magnesium measurementOrdered By: Teri Franklin on 05-11-2024 Magnesium [Mass/Vol] 2.0 mg/dL 1.6-2.6 [facility] Mean corpuscular hemoglobin (MCH) determinationOrdered By: Teri Franklin on 05-11-2024 MCH (RBC) [Entitic mass] 27.8 pg 27.0-32.0 [facility] Mean corpuscular hemoglobin concentration (MCHC) determinationOrdered By: Teri Franklin on 05-11-2024 MCHC (RBC) [Mass/Vol] 31.6 g/dL Low 32-36 [facility] Mean platelet volume determi nationOrdered By: Teri Franklin on 05-11-2024 Platelet mean volume (Bld) [Entitic vol] 10.1 fL 6.2-12.0 [facility] Monocyte percentageOrdered B y: Teri Franklin on 05-11-2024 Monocytes/100 WBC (Bld) 11.8 % High 0-10 [facility] Neutrophil percentageOrdered By: Teri Franklin on 05-11-2024 Neutrophils/100 WBC (Bld) 60.1 % 47-70 [facility] Nucleated red blood cell per centageOrdered By: Teri Franklin on 05-11-2024 Nucleated RBC/100 WBC (Bld) [Ratio] 0 % 0-5 [facility] Platelet countOrdered By: Mehul Franklin on 05-11-2024 Platelets (Bld) [#/Vol] 375 10*3/uL 150-450 [facility] Potassium measurementOrdered By: Teri Franklin on 05-11-2024 Potassium [Moles/Vol] 3.8 mmol/L 3.5-5.1 [facility] RBC Auto (Bld) [#/Vol]Ordere d By: Teri Franklin on 05-11-2024 RBC (Bld) [#/Vol] 3.92 10*6/uL Low 4.2-5.4 [facility] Serum anion gap measurementO rdered By: Teir Franklin on 05-11-2024 Anion gap [Moles/Vol] 6 mmol/L 5-15 [facility] Serum or plasma calcium anna urement (mass/volume)Ordered By: Teri Franklin on 05-11-2024 Calcium [Mass/Vol] 9.0 mg/dL 8.5-10.1 [facility] Serum or plasma creatinine m easurement (mass/volume)Ordered By: Teri Franklin on 05-11-2024 Creatinine [Mass/Vol] 0.62 mg/dL 0.55-1.02 [facility] Comment on above: The validity of the calculated GFR & GFRAA in patients over 70 years has not been determined. Clinical correlation is essential. Serum or plasma urea nitroge n measurement (mass/volume)Ordered By: Teri Franklin on 05-11-2024 Urea nitrogen [Mass/Vol] 21 mg/dL High 7-18 [facility] Sodium levelOrdered By: Landy Franklin on 05-11-2024 Sodium [Moles/Vol] 136 mmol/L 136-145 [facility] White blood cell (WBC) count Ordered By: Teri Franklin on 05-11-2024 WBC (Bld) [#/Vol] 5.4 10*3/uL 4.4-11.0 [facility] Culture, Blood (WB)on 2024 CUB Blood cultures x2, from two different sites No growth in 5 days. Normal [facility] Comment on above: Performed By: #### L 501.4020, L300.4310, L500.4050, M200.1000, L300.3900, L100.0100, L503.6005 ####[facility] [address] [place], [place], [address] CUB Blood cultures x2, from two different sites No growth in 5 days. Normal [facility] Comment on above: Performed By: #### M 200.1000 ####[facility] [address] [place], [place], [address] Absolute lymphocyte countOrd ered By: Teri Litojanet on 05-04-2024 Lymphocytes Auto (Unsp spec) [#/Vol] 0.88 10*3/uL 0.83-4.51 [facility] Absolute neutrophil countOrd ered By: Teri Gujanet on 05-04-2024 Neutrophils (Bld) [#/Vol] 7.0 10*3/uL 2.0-7.7 [facility] Automated lymphocyte count a s percentage of total leukocytesOrdered By: Teri Franklin on 05-04-2024 Lymphocytes/100 WBC Auto (Unsp spec) 10.0 % Low 19-41 [facility] Basic Metabolic Profile (BMP )on 05-04-2024 BUN/CRE 14.5 RATIO Normal - [facility] Comment on above: Order Comment: Performed By: #### L 501.9985, L503.0105, L501.5200, L506.1000, L501.9520, L500.2500, L100.0100, L500.4100 ####[facility] [address] [place], [place], [address] CA,Total 8.8 mg/dL Normal 8.5-10.1 [facility] Comment on above: Order Comment: Performed By: #### L 501.9985, L503.0105, L501.5200, L506.1000, L501.9520, L500.2500, L100.0100, L500.4100 ####[facility] [address] [place], [place], [id number] Chloride [Moles/Vol] 102 mmol/L Normal 98-107 [facility] Comment on above: Order Comment: Performed By: #### L 501.9985, L503.0105, L501.5200, L506.1000, L501.9520, L500.2500, L100.0100, L500.4100 ####[facility] [address] [place], [address] CO2 [Moles/Vol] 36.0 mmol/L High 21.0-32.0 [facility] Comment on above: Order Comment: Performed By: #### L 501.9985, L503.0105, L501.5200, L506.1000, L501.9520, L500.2500, L100.0100, L500.4100 ####[facility] [address] [place], [address] Creatinine [Mass/Vol] 0.55 mg/dL Normal 0.55-1.02 [facility] Comment on above: Order Comment: Result Comment: The validity of the calculated GFR GFRAA in patients over70 years has not been determined. Clinical correlation isessential. Performed By: #### L 501.9985, L503.0105, L501.5200, L506.1000, L501.9520, L500.2500, L100.0100, L500.4100 ####[facility] [address] [place], [address] EST GFR - AA 148 mL/min Normal >60 [facility] Comment on above: Order Comment: Result Comment: Afri can Japanese GFR Calc Performed By: #### L 501.9985, L503.0105, L501.5200, L506.1000, L501.9520, L500.2500, L100.0100, L500.4100 ####[facility] [address] [place], [address] GAP 2 Low 5-15 [facility] Comment on above: Order Comment: Performed By: #### L 501.9985, L503.0105, L501.5200, L506.1000, L501.9520, L500.2500, L100.0100, L500.4100 ####[facility] [address] [place], [address] GFR/1.73 sq M.predicted among non-blacks MDRD (S/P/Bld) [Vol rate/Area] 122 mL/min/{1.73_m2} Normal >60 [facility] Comment on above: Order Comment: Result Comment: Non- GFR Calc Performed By: #### L 501.9985, L503.0105, L501.5200, L506.1000, L501.9520, L500.2500, L100.0100, L500.4100 ####[facility] [address] [place], [address] Glucose [Mass/Vol] 109 mg/dL High 74-106 [facility] Comment on above: Order Comment: Result Comment: Fast ing Glucose result from 100 to 125 mg/dLsuggests IMPAIRED HOMEOSTASIS per A.D.A. criteria. Performed By: #### L 501.9985, L503.0105, L501.5200, L506.1000, L501.9520, L500.2500, L100.0100, L500.4100 ####[facility] [address] [place], [place], [address] Potassium [Moles/Vol] 3.8 mmol/L Normal 3.5-5.1 [facility] Comment on above: Order Comment: Performed By: #### L 501.9985, L503.0105, L501.5200, L506.1000, L501.9520, L500.2500, L100.0100, L500.4100 ####[facility] [address] [place], [address] Sodium [Moles/Vol] 141 mmol/L Normal 136-145 [facility] Comment on above: Order Comment: Performed By: #### L 501.9985, L503.0105, L501.5200, L506.1000, L501.9520, L500.2500, L100.0100, L500.4100 ####[facility] [address] [place], [address] Urea nitrogen [Mass/Vol] 8 mg/dL Normal 7-18 [facility] Comment on above: Order Comment: Performed By: #### L 501.9985, L503.0105, L501.5200, L506.1000, L501.9520, L500.2500, L100.0100, L500.4100 ####[facility] [address] [place], [address] Basophil percentageOrdered B y: Teri Franklin on 05-04-2024 Basophils/100 WBC (Bld) 0.5 % 0- [facility] Blood urea nitrogen (BUN)/cr eatinine ratioOrdered By: Teri Franklin on 05-04-2024 Urea nitrogen/Creatinine [Mass ratio] 14.5 mg/mg 02-01 [facility] CBC W/Diff, Automatedon 04-16 Absolute Lymph 0.88 X10 3/uL Normal 0.83-4.51 [facility] Comment on above: Order Comment: Performed By: #### L 501.9985, L503.0105, L501.5200, L506.1000, L501.9520, L500.2500, L100.0100, L500.4100 ####[facility] [address] [place], [address] Absolute Neut 7.0 X10 3/uL Normal 2.0-7.7 [facility] Comment on above: Order Comment: Performed By: #### L 501.9985, L503.0105, L501.5200, L506.1000, L501.9520, L500.2500, L100.0100, L500.4100 ####[facility] [address] [place], [address] Basophils/100 WBC (Bld) 0.5 % Normal 0-1 [facility] Comment on above: Order Comment: Performed By: #### L 501.9985, L503.0105, L501.5200, L506.1000, L501.9520, L500.2500, L100.0100, L500.4100 ####[facility] [address] [place], [address] Eosinophils/100 WBC (Bld) 1.2 % Normal 0-5 [facility] Comment on above: Order Comment: - Performed By: #### L 501.9985, L503.0105, L501.5200, L506.1000, L501.9520, L500.2500, L100.0100, L500.4100 ####[facility] [address] [place], [place], [id number] Erythrocyte distribution width (RBC) [Ratio] 14.3 % Normal 11.6-14.6 [facility] Comment on above: Order Comment: - Performed By: #### L 501.9985, L503.0105, L501.5200, L506.1000, L501.9520, L500.2500, L100.0100, L500.4100 ####[facility] [address] [place], [place], [phone] Hematocrit (Bld) [Volume fraction] 31.7 % Low 37-47 [facility] Comment on above: Order Comment: - Performed By: #### L 501.9985, L503.0105, L501.5200, L506.1000, L501.9520, L500.2500, L100.0100, L500.4100 ####[facility] [id number] [place], [phone] Hemoglobin (Bld) [Mass/Vol] 10.1 g/dL Low 12.0-15.0 [facility] Comment on above: Order Comment: - Performed By: #### L 501.9985, L503.0105, L501.5200, L506.1000, L501.9520, L500.2500, L100.0100, L500.4100 ####[facility] [address] [place], [address] IG% 1.900 High 0.0-0.9 [facility] Comment on above: Order Comment: Result Comment: IG% - Immature Granulocytes (promyelocytes, myelocytes andmetamyelocytes) > 1% indicates that a LEFT SHIFT is Present. Performed By: #### L 501.9985, L503.0105, L501.5200, L506.1000, L501.9520, L500.2500, L100.0100, L500.4100 ####[facility] [address] [place], [address] Lymphocytes/100 WBC (Bld) 10.0 % Low 19-41 [facility] Comment on above: Order Comment: Performed By: #### L 501.9985, L503.0105, L501.5200, L506.1000, L501.9520, L500.2500, L100.0100, L500.4100 ####[facility] [address] [place], [address] MCH (RBC) [Entitic mass] 28.0 pg Normal 27.0-32.0 [facility] Comment on above: Order Comment: Performed By: #### L 501.9985, L503.0105, L501.5200, L506.1000, L501.9520, L500.2500, L100.0100, L500.4100 ####[facility] [address] [place], [address] MCHC (RBC) [Mass/Vol] 31.9 g/dL Low 32-36 [facility] Comment on above: Order Comment: Performed By: #### L 501.9985, L503.0105, L501.5200, L506.1000, L501.9520, L500.2500, L100.0100, L500.4100 ####[facility] [address] [place], [address] MCV (RBC) [Entitic vol] 87.8 fL Normal 81-99 [facility] Comment on above: Order Comment: - Performed By: #### L 501.9985, L503.0105, L501.5200, L506.1000, L501.9520, L500.2500, L100.0100, L500.4100 ####[facility] [address] [place], [address] Monocytes/100 WBC (Bld) 7.3 % Normal 0-10 [facility] Comment on above: Order Comment: Performed By: #### L 501.9985, L503.0105, L501.5200, L506.1000, L501.9520, L500.2500, L100.0100, L500.4100 ####[facility] [address] [place], [address] Neutrophils/100 WBC (Bld) 79.1 % High 47-70 [facility] Comment on above: Order Comment: Performed By: #### L 501.9985, L503.0105, L501.5200, L506.1000, L501.9520, L500.2500, L100.0100, L500.4100 ####[facility] [address] [place], [address] Nucleated RBC (Bld) [#/Vol] 0 10*3/uL Normal 0-5 [facility] Comment on above: Order Comment: Performed By: #### L 501.9985, L503.0105, L501.5200, L506.1000, L501.9520, L500.2500, L100.0100, L500.4100 ####[facility] [address] [place], [address] Platelet mean volume (Bld) [Entitic vol] 10.3 fL Normal 6.2-12.0 [facility] Comment on above: Order Comment: Performed By: #### L 501.9985, L503.0105, L501.5200, L506.1000, L501.9520, L500.2500, L100.0100, L500.4100 ####[facility] [address] [place], [address] Platelets (Bld) [#/Vol] 241 10*3/uL Normal 150-450 [facility] Comment on above: Order Comment: Performed By: #### L 501.9985, L503.0105, L501.5200, L506.1000, L501.9520, L500.2500, L100.0100, L500.4100 ####[facility] [address] [place], [place], [id number](921) RBC (Bld) [#/Vol] 3.61 10*6/uL Low 4.2-5.4 [facility] Comment on above: Order Comment: Performed By: #### L 501.9985, L503.0105, L501.5200, L506.1000, L501.9520, L500.2500, L100.0100, L500.4100 ####[facility] [address] [place], [address] RDW SD 45.0 fl High 35.1-43.9 [facility] Comment on above: Order Comment: Performed By: #### L 501.9985, L503.0105, L501.5200, L506.1000, L501.9520, L500.2500, L100.0100, L500.4100 ####[facility] [address] [place], [address] WBC (Bld) [#/Vol] 8.8 10*3/uL Normal 4.4-11.0 [facility] Comment on above: Order Comment: 212-1 Performed By: #### L 501.9985, L503.0105, L501.5200, L506.1000, L501.9520, L500.2500, L100.0100, L500.4100 ####[facility] [address] [place], [address] PATH REV Reviewed Normal [facility] Comment on above: Result Comment: Neut rophilic leukocytosis with left shift.Normocytic anemia.Clinical correlation necessary.Sheldon Baeza M.D. 05/04/24 AMENDED REPORT 05/04/24 0852 PATH REV previously reported as: August Performed By: #### L 500.2500, L100.0100 ####[facility] [address] [place], [address] Carbon dioxide measurementOr dered By: Teri Franklin on 05-04-2024 CO2 [Moles/Vol] 36.0 mmol/L High 21.0-32.0 [facility] Chloride measurementOrdered By: Terifreddie Franklin on 05-04-2024 Chloride [Moles/Vol] 102 mmol/L 98-107 [facility] Eosinophil percentageOrdered By: Teri Franklin on 05-04-2024 Eosinophils/100 WBC (Bld) 1.2 % 0-5 [facility] Erythrocyte distribution wid th ratioOrdered By: Teri Franklin on 05-04-2024 Erythrocyte distribution width (RBC) [Ratio] 14.3 % 11.6-14.6 [facility] Erythrocyte distribution wid th standard deviationOrdered By: Teri Franklin on 05-04-2024 Erythrocyte distribution width (RBC) [Ratio] 45.0 fl High 35.1-43.9 [facility] Glomerular filtration rate ( GFR) estimationOrdered By: Teri Franklin on 05-04-2024 GFR/1.73 sq M.predicted among non-blacks MDRD (S/P/Bld) [Vol rate/Area] 122 mL/min/{1.73_m2} >60 [facility] Comment on above: Non- GFR Calc Glucose measurementOrdered B y: Teriizzy Franklin on 05-04-2024 Glucose [Mass/Vol] 109 mg/dL High 74-106 [facility] Comment on above: Fasting Glucose resu lt from 100 to 125 mg/dL suggests IMPAIRED HOMEOSTASIS per A.D.A. criteria. Hematocrit Auto (Bld) [Volum e fraction]Ordered By: Teri Franklin on 05-04-2024 Hematocrit (Bld) [Volume fraction] 31.7 % Low 37-47 [facility] Hemoglobin A1con 05-04-2024 HbA1c (Bld) [Mass fraction] 10.5 % High 3.8-5.6 [facility] Comment on above: Order Comment: 212-1 Result Comment: Norm al < 5.7 % Prediabetic 5.7 - 6.4 % Diabetic >or= 6.5 % Please note range changes. Performed By: #### L 501.9985, L503.0105, L501.5200, L506.1000, L501.9520, L500.2500, L100.0100, L500.4100 ####[facility] [address] [place], [place], [address] Hemoglobin A1c percentageOrd ered By: Teri Franklin on 05-04-2024 HbA1c (Bld) [Mass fraction] 10.5 % High 3.8-5.6 [facility] Comment on above: Normal < 5.7 % Predi abetic 5.7 - 6.4 % Diabetic >or= 6.5 % Please note range changes. Hemoglobin measurementOrdere d By: Teri Franklin on 05-04-2024 Hemoglobin (Bld) [Mass/Vol] 10.1 g/dL Low 12.0-15.0 [facility] High density lipoprotein (HD L) measurementOrdered By: Teri Franklin on 05-04-2024 Cholesterol in HDL [Mass/Vol] 28 mg/dL Low >40 [facility] Comment on above: The drugs N-Acetylcy steine and Metamizole may falsely depress this assay. Reference Range HDL <40 mg/dL Low HDL Cholesterol HDL >or= 60 mg/dL High HDL Cholesterol Immature granulocytes/100 WB C Auto (Bld)Ordered By: Teri Franklin on 05-04-2024 Immature granulocytes/100 WBC (Bld) 1.900 % High 0.0-0.9 [facility] Comment on above: IG% - Immature Granu locytes (promyelocytes, myelocytes and metamyelocytes) > 1% indicates that a LEFT SHIFT is Present. Lipid Profileon 05-04-2024 Cholesterol [Mass/Vol] 146 mg/dL Normal 200 [facility] Comment on above: Order Comment: Result Comment: <200 mg/dL Desirable 200-240 mg/dL Borderline >240 mg/dL High Risk Performed By: #### L 501.9985, L503.0105, L501.5200, L506.1000, L501.9520, L500.2500, L100.0100, L500.4100 ####[facility] [address] [place], [address] Cholesterol in HDL [Mass/Vol] 28 mg/dL Low [facility] Comment on above: Order Comment: Result Comment: The drugs N-Acetylcysteine and Metamizole may falselydepress this assay. Reference Range HDL <40 mg/dL Low HDL Cholesterol HDL >or= 60 mg/dL High HDL Cholesterol Performed By: #### L 501.9985, L503.0105, L501.5200, L506.1000, L501.9520, L500.2500, L100.0100, L500.4100 ####[facility] [address] [place], [address] Cholesterol in LDL [Mass/Vol] 96 mg/dL Normal 0-130 [facility] Comment on above: Order Comment: Performed By: #### L 501.9985, L503.0105, L501.5200, L506.1000, L501.9520, L500.2500, L100.0100, L500.4100 ####[facility] [address] [place], [address] Cholesterol in VLDL [Mass/Vol] 22 mg/dL Normal 5-40 [facility] Comment on above: Order Comment: Performed By: #### L 501.9985, L503.0105, L501.5200, L506.1000, L501.9520, L500.2500, L100.0100, L500.4100 ####[facility] [address] [place], [place], [id number] Triglyceride [Mass/Vol] 109 mg/dL Normal [facility] Comment on above: Order Comment: Result Comment: The drugs N-Acetylcysteine and Metamizole may falselydepress this assay.Serum Triglycerides Reference Interval Normal <150 mg/dL Borderline high 150 - 199 mg/dL High 200 - 499 mg/dL Very High > or = 500 mg/dL Performed By: #### L 501.9985, L503.0105, L501.5200, L506.1000, L501.9520, L500.2500, L100.0100, L500.4100 ####[facility] [address] [place], [address] Low density lipoprotein (LDL ) cholesterol measurementOrdered By: Teri Franklin on 05-04-2024 Cholesterol in LDL [Mass/Vol] 96 mg/dL 0-130 [facility] MCV (mean corpuscular volume ) determinationOrdered By: Teri Franklin on 05-04-2024 MCV (RBC) [Entitic vol] 87.8 fL 81-99 [facility] Magnesiumon 05-04-2024 Magnesium [Mass/Vol] 2.1 mg/dL Normal 1.6-2.6 [facility] Comment on above: Order Comment: Performed By: #### L 501.9985, L503.0105, L501.5200, L506.1000, L501.9520, L500.2500, L100.0100, L500.4100 ####[facility] [address] [place], [address] Magnesium measurementOrdered By: Teri Franklin on 05-04-2024 Magnesium [Mass/Vol] 2.1 mg/dL 1.6-2.6 [facility] Mean corpuscular hemoglobin (MCH) determinationOrdered By: Teri Franklin on 05-04-2024 MCH (RBC) [Entitic mass] 28.0 pg 27.0-32.0 [facility] Mean corpuscular hemoglobin concentration (MCHC) determinationOrdered By: Teri Franklin on 05-04-2024 MCHC (RBC) [Mass/Vol] 31.9 g/dL Low 32-36 [facility] Mean platelet volume determi nationOrdered By: Trei Franklin on 05-04-2024 Platelet mean volume (Bld) [Entitic vol] 10.3 fL 6.2-12.0 [facility] Monocyte percentageOrdered B y: Teri Franklin on 05-04-2024 Monocytes/100 WBC (Bld) 7.3 % 0-10 [facility] Neutrophil percentageOrdered By: Teri Franklin on 05-04-2024 Neutrophils/100 WBC (Bld) 79.1 % High 47-70 [facility] Nucleated red blood cell per centageOrdered By: Teri Franklin on 05-04-2024 Nucleated RBC/100 WBC (Bld) [Ratio] 0 % 0-5 [facility] Platelet countOrdered By: Mehul Franklin on 05-04-2024 Platelets (Bld) [#/Vol] 241 10*3/uL 150-450 [facility] Potassium measurementOrdered By: Teri Franklin on 05-04-2024 Potassium [Moles/Vol] 3.8 mmol/L 3.5-5.1 [facility] RBC Auto (Bld) [#/Vol]Ordere d By: Teri Franklin on 05-04-2024 RBC (Bld) [#/Vol] 3.61 10*6/uL Low 4.2-5.4 [facility] Serum anion gap measurementO rdered By: Teri Franklin on 05-04-2024 Anion gap [Moles/Vol] 2 mmol/L Low 5-15 [facility] Serum or plasma calcium anna urement (mass/volume)Ordered By: Teri Franklin on 05-04-2024 Calcium [Mass/Vol] 8.8 mg/dL 8.5-10.1 [facility] Serum or plasma cholesterol measurement (mass/volume)Ordered By: Teri Franklin on 05-04-2024 Cholesterol [Mass/Vol] 146 mg/dL <200 [facility] Comment on above: <200 mg/dL Desirable 200-240 mg/dL Borderline >240 mg/dL High Risk Serum or plasma creatinine m easurement (mass/volume)Ordered By: Teri Franklin on 05-04-2024 Creatinine [Mass/Vol] 0.55 mg/dL 0.55-1.02 [facility] Comment on above: The validity of the calculated GFR & GFRAA in patients over 70 years has not been determined. Clinical correlation is essential. Serum or plasma thyroid stim ulating hormone (TSH) measurement (units/volume)Ordered By: Teri Franklin on 05-04-2024 TSH Qn 3.000 uIU/mL 0.358-3.740 [facility] Serum or plasma urea nitroge n measurement (mass/volume)Ordered By: Teri Franklin on 05-04-2024 Urea nitrogen [Mass/Vol] 8 mg/dL 7-18 [facility] Sodium levelOrdered By: Landy Franklin on 05-04-2024 Sodium [Moles/Vol] 141 mmol/L 136-145 [facility] Thyroid Stim Hormone (TSH)on 05-04-2024 TSH 3.000 uIU/mL Normal 0.358-3.740 [facility] Comment on above: Order Comment: 212-1 Performed By: #### L 501.9985, L503.0105, L501.5200, L506.1000, L501.9520, L500.2500, L100.0100, L500.4100 ####[facility] [address] [place], [address] Triglycerides measurementOrd ered By: Teri Franklin on 05-04-2024 Triglyceride [Mass/Vol] 109 mg/dL <199 [facility] Comment on above: The drugs N-Acetylcy steine and Metamizole may falsely depress this assay.Serum Triglycerides Reference Interval Normal <150 mg/dL Borderline high 150 - 199 mg/dL High 200 - 499 mg/dL Very High > or = 500 mg/dL Very low density lipoprotein (VLDL) cholesterol measurementOrdered By: Teri Franklin on 05-04-2024 Very low density lipoprotein (VLDL) cholesterol measurement 22 mg/dL 5-40 [facility] Vitamin B12on 05-04-2024 Cobalamin (Vitamin B12) [Mass/Vol] 1184 pg/mL High 211-911 [facility] Comment on above: Order Comment: Performed By: #### L 501.9985, L503.0105, L501.5200, L506.1000, L501.9520, L500.2500, L100.0100, L500.4100 ####[facility] [address] [place], [place], [id number] Vitamin B12 measurementOrder ed By: Teri Franklin on 05-04-2024 Cobalamin (Vitamin B12) [Mass/Vol] 1184 pg/mL High 211-911 [facility] Vitamin D,25 Hydroxyon 05-04 Vitamin D 25-OH 28.9 ng/mL Normal [facility] Comment on above: Order Comment: Result Comment: Crissy min D 25(OH) Status Range Deficiency <20 ng/mL (50nmol/L) Insufficiency 20 - 30 ng/mL (50 - 75 nmol/L) Sufficiency 30 - 100 ng/mL (75 - 250 nmol/L) Toxicity >100 ng/mL (>250 nmol/L) Performed By: #### L 501.9985, L503.0105, L501.5200, L506.1000, L501.9520, L500.2500, L100.0100, L500.4100 ####[facility] [address] [place], [place], [id number] White blood cell (WBC) count Ordered By: Teri Franklin on 05-04-2024 WBC (Bld) [#/Vol] 8.8 10*3/uL 4.4-11.0 [facility] Bedside Glucoseon 05-02-2024 FINGERSTICK GLU 63 mg/dL Low 74-106 [facility] Comment on above: Result Comment: DELLA KENNY OF PATIENT CARE PER NURSING PROTOCOL Performed By: #### L 501.080 ####[facility] [address] [place], [place], [address] Hepatitis C,RNA PCR Viral Lo salvage winder 05-02-2024 HCV QT RNA PCR >100,000,000 Normal . [facility] Comment on above: Performed By: #### L 3000.0375, L7000.7000 ####[facility] [address] [place], [place], [id number] TEST INFO: Comment Normal . [facility] Comment on above: Result Comment: The quantitative range of this assay is 15 IU/mL to 100million IU/mL.Performed at: [address] [id number] Director: Dave Peters PhD, Phone: [phone] at: [facility] [address] [id number] Director: Ellie Arshad MD, Phone: [phone] Performed By: #### L 3000.0375, L7000.7000 ####[facility] [address] [place], [place], [address] Hepatitis Panel Acuteon 04-15 HCV Interpretat Comment Normal . [facility] Comment on above: Result Comment: Posi tive HCV antibody screen with the presence of HCV RNAis consistent with active infection. Performed By: #### L 3000.0375, L7000.7000 ####[facility] [address] [place], [place], [address] HCV log 10 TNP Normal . [facility] Comment on above: Performed By: #### L 3000.0375, L7000.7000 ####[facility] [address] [place], [address] HEP B CORE,IgM Negative Normal Negative [facility] Comment on above: Performed By: #### L 3000.0375, L7000.7000 ####[facility] [address] [place], [address] HEP B SURF AG Negative Normal Negative [facility] Comment on above: Performed By: #### L 3000.0375, L7000.7000 ####[facility] [address] [place], [address] Hep C Quant >100,000,000 Normal . [facility] Comment on above: Performed By: #### L 3000.0375, L7000.7000 ####[facility] [address] [place], [address] HEP C VIRUS AB Reactive Abnormal Non Reactive [facility] Comment on above: Performed By: #### L 3000.0375, L7000.7000 ####[facility] [address] [place], [address] HEPATITIS A-IgM Negative Normal Negative [facility] Comment on above: Result Comment: A ne gative anti-HAV IgM result suggests no recent orcurrent HAV infection. Performed By: #### L 3000.0375, L7000.7000 ####[facility] [address] [place], [address] Test Informatio Comment Normal . [facility] Comment on above: Result Comment: The quantitative range of this assay is 15 IU/mL to 100million IU/mL. Performed By: #### L 3000.0375, L7000.7000 ####[facility] [address] [place], [address] Urine Cultureon 05-02-2024 URC Yeast, not Nirmala albicans [place] Count 1000-10,000 Normal [facility] Comment on above: Performed By: #### L 400.0001, M100.2200 ####[facility] [address] [place], [address] Absolute lymphocyte countOrd ered By: Farhad Ma on 05-01-2024 Lymphocytes Auto (Unsp spec) [#/Vol] 2.23 10*3/uL 0.83-4.51 [facility] Absolute neutrophil countOrd ered By: Farhad Ma on 05-01-2024 Neutrophils (Bld) [#/Vol] 13.8 10*3/uL High 2.0-7.7 [facility] Basic Metabolic Profile (BMP )on 05-01-2024 BUN/CRE 18.1 RATIO Normal 10-20 [facility] Comment on above: Performed By: #### L 500.2500, L100.0100 ####[facility] [address] [place], [address] CA,Total 7.9 mg/dL Low 8.5-10.1 [facility] Comment on above: Performed By: #### L 500.2500, L100.0100 ####[facility] [address] [place], [address] Chloride [Moles/Vol] 109 mmol/L High 98-107 [facility] Comment on above: Performed By: #### L 500.2500, L100.0100 ####[facility] [address] [place], [address] CO2 [Moles/Vol] 27.0 mmol/L Normal 21.0-32.0 [facility] Comment on above: Performed By: #### L 500.2500, L100.0100 ####[facility] [address] [place], [address] Creatinine [Mass/Vol] 0.50 mg/dL Low 0.55-1.02 [facility] Comment on above: Result Comment: The validity of the calculated GFR GFRAA in patients over70 years has not been determined. Clinical correlation isessential. Performed By: #### L 500.2500, L100.0100 ####[facility] [address] [place], [address] ECRCL 138.94 ml/min Normal [facility] Comment on above: Performed By: #### L 500.2500, L100.0100 ####[facility] [address] [place], [address] EST GFR - AA 167 mL/min Normal >60 [facility] Comment on above: Result Comment: Afri can Japanese GFR Calc Performed By: #### L 500.2500, L100.0100 ####[facility] [address] [place], [address] GAP 3 Low 5-15 [facility] Comment on above: Performed By: #### L 500.2500, L100.0100 ####[facility] [address] [place], [address] GFR/1.73 sq M.predicted among non-blacks MDRD (S/P/Bld) [Vol rate/Area] 138 mL/min/{1.73_m2} Normal >60 [facility] Comment on above: Result Comment: Non- GFR Calc Performed By: #### L 500.2500, L100.0100 ####[facility] [address] [place], [address] Glucose [Mass/Vol] 110 mg/dL High 74-106 [facility] Comment on above: Result Comment: Fast ing Glucose result from 100 to 125 mg/dLsuggests IMPAIRED HOMEOSTASIS per A.D.A. criteria. Performed By: #### L 500.2500, L100.0100 ####[facility] [address] [place], [address] Potassium [Moles/Vol] 3.8 mmol/L Normal 3.5-5.1 [facility] Comment on above: Performed By: #### L 500.2500, L100.0100 ####[facility] [address] [place], [address] Sodium [Moles/Vol] 140 mmol/L Normal 136-145 [facility] Comment on above: Performed By: #### L 500.2500, L100.0100 ####[facility] [address] [place], [address] Urea nitrogen [Mass/Vol] 9 mg/dL Normal 7-18 [facility] Comment on above: Performed By: #### L 500.2500, L100.0100 ####[facility] [address] [place], [address] BUN Normal 7-18 [facility] Comment on above: Result Comment: Canc elled via OM: Order cancelled - Patient discharged Performed By: #### L 100.0100, L500.2500 ####[facility] [address] [place], [address] BUN/CRE Normal 10-20 [facility] Comment on above: Result Comment: Canc elled via OM: Order cancelled - Patient discharged Performed By: #### L 100.0100, L500.2500 ####[facility] [address] [place], [address] CA,Total Normal 8.5-10.1 [facility] Comment on above: Result Comment: Canc elled via OM: Order cancelled - Patient discharged Performed By: #### L 100.0100, L500.2500 ####[facility] [address] [place], [address] CL Normal 98-107 [facility] Comment on above: Result Comment: Canc elled via OM: Order cancelled - Patient discharged Performed By: #### L 100.0100, L500.2500 ####[facility] [address] [place], [address] CO2 Normal 21.0-32.0 [facility] Comment on above: Result Comment: Canc elled via OM: Order cancelled - Patient discharged Performed By: #### L 100.0100, L500.2500 ####[facility] [address] [place], [address] CREAT,SERUM Normal 0.55-1.02 [facility] Comment on above: Result Comment: Canc elled via OM: Order cancelled - Patient discharged Performed By: #### L 100.0100, L500.2500 ####[facility] [address] [place], [address] EST GFR Normal >60 [facility] Comment on above: Result Comment: Canc elled via OM: Order cancelled - Patient discharged Performed By: #### L 100.0100, L500.2500 ####[facility] [address] [place], [address] EST GFR - AA Normal >60 [facility] Comment on above: Result Comment: Canc elled via OM: Order cancelled - Patient discharged Performed By: #### L 100.0100, L500.2500 ####[facility] [address] [place], [address] GAP Normal 5-15 [facility] Comment on above: Result Comment: Canc elled via OM: Order cancelled - Patient discharged Performed By: #### L 100.0100, L500.2500 ####[facility] [address] [place], [address] GLU Normal 74-106 [facility] Comment on above: Result Comment: Canc elled via OM: Order cancelled - Patient discharged Performed By: #### L 100.0100, L500.2500 ####[facility] [address] [place], [address] Potassium Normal 3.5-5.1 [facility] Comment on above: Result Comment: Canc elled via OM: Order cancelled - Patient discharged Performed By: #### L 100.0100, L500.2500 ####[facility] [address] [place], [address] Basic Metabolic Profile (BMP) Normal 136-145 [facility] Comment on above: Result Comment: Canc elled via OM: Order cancelled - Patient discharged Performed By: #### L 100.0100, L500.2500 ####[facility] [address] [place], [address] Bedside Glucoseon 05-01-2024 FINGERSTICK GLU 118 mg/dL High 74-106 [facility] Comment on above: Result Comment: DELLA GEMENT OF PATIENT CARE PER NURSING PROTOCOL Performed By: #### L 501.080 ####[facility] [address] [place], [address] FINGERSTICK GLU 90 mg/dL Normal 74-106 [facility] Comment on above: Result Comment: DELLA GEMENT OF PATIENT CARE PER NURSING PROTOCOL Performed By: #### L 501.080 ####[facility] [address] [place], [address] FINGERSTICK GLU 109 mg/dL High 74-106 [facility] Comment on above: Result Comment: DELLA GEMENT OF PATIENT CARE PER NURSING PROTOCOL Performed By: #### L 501.080 ####[facility] [address] [place], [address] Blood band neutrophil count as percentage of total leukocytesOrdered By: Farhad Ma on 05-01-2024 Band form neutrophils/100 WBC (Bld) 2 % 0-5 [facility] Blood eosinophils/100 leukoc ytesOrdered By: Farhad Ma on 05-01-2024 Eosinophils/100 WBC (Bld) 2 % 0-5 [facility] Blood lymphocytes/100 leukoc ytesOrdered By: Farhad Ma on 05-01-2024 Lymphocytes/100 WBC (Bld) 13 % Low 19-41 [facility] Blood metamyelocytes/100 alexander kocytesOrdered By: Farhad Ma on 05-01-2024 Metamyelocytes/100 WBC (Bld) 2 % High 0-1 [facility] Blood monocytes/100 leukocyt esOrdered By: Farhad Ma on 05-01-2024 Monocytes/100 WBC (Bld) 3 % 0-10 [facility] Blood segmented neutrophils/ 100 leukocytesOrdered By: Farhad Ma on 05-01-2024 Segmented neutrophils/100 WBC (Bld) 78 % High 47-70 [facility] Blood urea nitrogen (BUN)/cr eatinine ratioOrdered By: Farhad Ma on 05-01-2024 Urea nitrogen/Creatinine [Mass ratio] 18.1 mg/mg 10-20 [facility] CBC W/Diff, Automatedon 04-15 Absolute Neut Normal 2.0-7.7 [facility] Comment on above: Result Comment: Canc elled via OM: Order cancelled - Patient discharged Performed By: #### L 100.0100, L500.2500 ####[facility] [address] [facility] [address] HCT Normal 37-47 [facility] Comment on above: Result Comment: Canc elled via OM: Order cancelled - Patient discharged Performed By: #### L 100.0100, L500.2500 ####[facility] [address] [place], [address] HGB Normal 12.0-15.0 [facility] Comment on above: Result Comment: Canc elled via OM: Order cancelled - Patient discharged Performed By: #### L 100.0100, L500.2500 ####[facility] [address] [place], [address] MCH Normal 27.0-32.0 [facility] Comment on above: Result Comment: Canc elled via OM: Order cancelled - Patient discharged Performed By: #### L 100.0100, L500.2500 ####[facility] [address] [place], [address] MCHC Normal 32-36 [facility] Comment on above: Result Comment: Canc elled via OM: Order cancelled - Patient discharged Performed By: #### L 100.0100, L500.2500 ####[facility] [address] [place], [address] MCV Normal 81-99 [facility] Comment on above: Result Comment: Canc elled via OM: Order cancelled - Patient discharged Performed By: #### L 100.0100, L500.2500 ####[facility] [address] [place], [address] NEUT% Normal 47-70 [facility] Comment on above: Result Comment: Canc elled via OM: Order cancelled - Patient discharged Performed By: #### L 100.0100, L500.2500 ####[facility] [address] [place], [address] PLT Normal 150-450 [facility] Comment on above: Result Comment: Canc elled via OM: Order cancelled - Patient discharged Performed By: #### L 100.0100, L500.2500 ####[facility] [address] [place], [address] RBC Normal 4.2-5.4 [facility] Comment on above: Result Comment: Canc elled via OM: Order cancelled - Patient discharged Performed By: #### L 100.0100, L500.2500 ####[facility] [address] [place], [address] RDW CV Normal 11.6-14.6 [facility] Comment on above: Result Comment: Canc elled via OM: Order cancelled - Patient discharged Performed By: #### L 100.0100, L500.2500 ####[facility] [address] [place], [address] RDW SD Normal 35.1-43.9 [facility] Comment on above: Result Comment: Canc elled via OM: Order cancelled - Patient discharged Performed By: #### L 100.0100, L500.2500 ####[facility] [address] [place], [address] WBC Normal 4.4-11.0 [facility] Comment on above: Result Comment: Canc elled via OM: Order cancelled - Patient discharged Performed By: #### L 100.0100, L500.2500 ####[facility] [address] [place], [address] Carbon dioxide measurementOr dered By: Farhad Ma on 05-01-2024 CO2 [Moles/Vol] 27.0 mmol/L 21.0-32.0 [facility] Chloride measurementOrdered By: Farhad Ma on 05-01-2024 Chloride [Moles/Vol] 109 mmol/L High 98-107 [facility] Culture, Blood (WB)on 2024 CUB Blood cultures x2, from two different sites No growth in 5 days. Normal [facility] Comment on above: Performed By: #### M 200.1000 ####[facility] [address] [place], [address] Erythrocyte distribution wid th ratioOrdered By: Farhad Ma on 05-01-2024 Erythrocyte distribution width (RBC) [Ratio] 14.2 % 11.6-14.6 [facility] Erythrocyte distribution wid th standard deviationOrdered By: Farhad Ma on 05-01-2024 Erythrocyte distribution width (RBC) [Ratio] 43.4 fl 35.1-43.9 [facility] Erythrocyte morphology asses smentOrdered By: Farhad Ma on 05-01-2024 RBC morphology finding Nom (Bld) NORM C+C NORMAL NORM C&C [facility] Glomerular filtration rate ( GFR) estimationOrdered By: Farhad Ma on 05-01-2024 GFR/1.73 sq M.predicted among non-blacks MDRD (S/P/Bld) [Vol rate/Area] 138 mL/min/{1.73_m2} >60 [facility] Comment on above: Non- GFR Calc Glucose measurementOrdered B y: Farhad Ma on 05-01-2024 Glucose [Mass/Vol] 110 mg/dL High 74-106 [facility] Comment on above: Fasting Glucose resu lt from 100 to 125 mg/dL suggests IMPAIRED HOMEOSTASIS per A.D.A. criteria. [facility] de[facility]dered By: Farhad Ma on 05-01-2024 Glucose [Mass/Vol] 118 mg/dL High 74-106 [facility] Comment on above: MANAGEMENT OF PATIEN T CARE PER NURSING PROTOCOL Hematocrit Auto (Bld) [Volum e fraction]Ordered By: Farhad Ma on 05-01-2024 Hematocrit (Bld) [Volume fraction] 29.1 % Low 37-47 [facility] Hemoglobin measurementOrdere d By: Farhad Ma on 05-01-2024 Hemoglobin (Bld) [Mass/Vol] 9.5 g/dL Low 12.0-15.0 [facility] MCV (mean corpuscular volume ) determinationOrdered By: Farhad Ma on 05-01-2024 MCV (RBC) [Entitic vol] 85.6 fL 81-99 [facility] Mean corpuscular hemoglobin (MCH) determinationOrdered By: Farhad Ma on 05-01-2024 MCH (RBC) [Entitic mass] 27.9 pg 27.0-32.0 [facility] Mean corpuscular hemoglobin concentration (MCHC) determinationOrdered By: Farhad Ma on 05-01-2024 MCHC (RBC) [Mass/Vol] 32.6 g/dL 32-36 [facility] Mean platelet volume determi nationOrdered By: Farhad Ma on 05-01-2024 Platelet mean volume (Bld) [Entitic vol] 9.3 fL 6.2-12.0 [facility] Platelet countOrdered By: Eva Ma on 05-01-2024 Platelets (Bld) [#/Vol] 225 10*3/uL 150-450 [facility] Platelet estimateOrdered By: Farhad Ma on 05-01-2024 Platelets LM Ql (Bld) ADEQUATE ADEQ [facility] Potassium measurementOrdered By: Farhad Ma on 05-01-2024 Potassium [Moles/Vol] 3.8 mmol/L 3.5-5.1 [facility] RBC Auto (Bld) [#/Vol]Ordere d By: Farhad Ma on 05-01-2024 RBC (Bld) [#/Vol] 3.40 10*6/uL Low 4.2-5.4 [facility] Review by pathologistOrdered By: Farhad Ma on 05-01-2024 Pathologist review Danny (Unsp spec) [Interp] Reviewed [facility] Comment on above: Previous reported re sult: Kim guan Edited by: CHARLENE on 05/04/24:0852Neutrophilic leukocytosis with left shift.Normocytic anemia.Clinical correlation necessary.Sheldon Baeza M.D. 05/04/24 AMENDED REPORT 05/04/24 0852 PATH REV previously reported as: Kim guan Serum anion gap measurementO rdered By: Farhad Ma on 05-01-2024 Anion gap [Moles/Vol] 3 mmol/L Low 5-15 [facility] Serum or plasma calcium anna urement (mass/volume)Ordered By: Farhad Ma on 05-01-2024 Calcium [Mass/Vol] 7.9 mg/dL Low 8.5-10.1 [facility] Serum or plasma creatinine m easurement (mass/volume)Ordered By: Farhad Ma on 05-01-2024 Creatinine [Mass/Vol] 0.50 mg/dL Low 0.55-1.02 [facility] Comment on above: The validity of the calculated GFR & GFRAA in patients over 70 years has not been determined. Clinical correlation is essential. Serum or plasma urea nitroge n measurement (mass/volume)Ordered By: Farhad Ma on 05-01-2024 Urea nitrogen [Mass/Vol] 9 mg/dL 7-18 [facility] Sodium levelOrdered By: David Ma on 05-01-2024 Sodium [Moles/Vol] 140 mmol/L 136-145 [facility] Total cell countOrdered By: Farhad Ma on 05-01-2024 Cells counted Molgen (Bld/Tiss) [#] 100 MANUAL DIFF [facility] White blood cell (WBC) count Ordered By: Farhad Ma on 05-01-2024 WBC (Bld) [#/Vol] 17.2 10*3/uL High 4.4-11.0 [facility] BNP (brain natriuretic pepti de measurement)Ordered By: Vicente Rossi on 04-30-2024 Natriuretic peptide B (Bld) [Mass/Vol] 110.2 pg/mL High 0-100 [facility] BNP,B-Type NATRIURETIC PEPTI Angela 04-30-2024 Natriuretic peptide B (Bld) [Mass/Vol] 110.2 pg/mL High 0-100 [facility] Comment on above: Performed By: #### L 503.6620 ####[facility] [address] [place], [address] Natriuretic peptide B (Bld) [Mass/Vol] 99.7 pg/mL Normal 0-100 [facility] Comment on above: Performed By: #### L 503.6620 ####[facility] [address] [place], [address] Basic Metabolic Profile (BMP )on 04-30-2024 BUN Normal 7-18 [facility] Comment on above: Result Comment: Canc elled via OM: Order cancelled - Patient discharged Performed By: #### L 500.2500, L100.0100 ####[facility] [address] [place], [address] BUN/CRE Normal 10-20 [facility] Comment on above: Result Comment: Canc elled via OM: Order cancelled - Patient discharged Performed By: #### L 500.2500, L100.0100 ####[facility] [address] [place], [address] CA,Total Normal 8.5-10.1 [facility] Comment on above: Result Comment: Canc elled via OM: Order cancelled - Patient discharged Performed By: #### L 500.2500, L100.0100 ####[facility] [address] [place], [address] CL Normal 98-107 [facility] Comment on above: Result Comment: Canc elled via OM: Order cancelled - Patient discharged Performed By: #### L 500.2500, L100.0100 ####[facility] [address] [place], [address] CO2 Normal 21.0-32.0 [facility] Comment on above: Result Comment: Canc elled via OM: Order cancelled - Patient discharged Performed By: #### L 500.2500, L100.0100 ####[facility] [address] [place], [address] CREAT,SERUM Normal 0.55-1.02 [facility] Comment on above: Result Comment: Canc elled via OM: Order cancelled - Patient discharged Performed By: #### L 500.2500, L100.0100 ####[facility] [address] [place], [address] EST GFR Normal >60 [facility] Comment on above: Result Comment: Canc elled via OM: Order cancelled - Patient discharged Performed By: #### L 500.2500, L100.0100 ####[facility] [address] [place], [address] EST GFR - AA Normal >60 [facility] Comment on above: Result Comment: Canc elled via OM: Order cancelled - Patient discharged Performed By: #### L 500.2500, L100.0100 ####[facility] [address] [place], [address] GAP Normal 5-15 [facility] Comment on above: Result Comment: Canc elled via OM: Order cancelled - Patient discharged Performed By: #### L 500.2500, L100.0100 ####[facility] [address] [place], [address] GLU Normal 74-106 [facility] Comment on above: Result Comment: Canc elled via OM: Order cancelled - Patient discharged Performed By: #### L 500.2500, L100.0100 ####[facility] [address] [place], [address] Potassium Normal 3.5-5.1 [facility] Comment on above: Result Comment: Canc elled via OM: Order cancelled - Patient discharged Performed By: #### L 500.2500, L100.0100 ####[facility] [address] [place], [address] Basic Metabolic Profile (BMP) Normal 136-145 [facility] Comment on above: Result Comment: Canc elled via OM: Order cancelled - Patient discharged Performed By: #### L 500.2500, L100.0100 ####[facility] [address] [place], [address] Bedside Glucoseon 04-30-2024 FINGERSTICK GLU 151 mg/dL High 74-106 [facility] Comment on above: Result Comment: DELLA GEMENT OF PATIENT CARE PER NURSING PROTOCOL Performed By: #### L 501.080 ####[facility] [address] [place], [address] FINGERSTICK GLU 226 mg/dL High 74-106 [facility] Comment on above: Result Comment: DELLA GEMENT OF PATIENT CARE PER NURSING PROTOCOL Performed By: #### L 501.080 ####[facility] [address] [place], [address] FINGERSTICK GLU 212 mg/dL High 74-106 [facility] Comment on above: Result Comment: DELLA GEMENT OF PATIENT CARE PER NURSING PROTOCOL Performed By: #### L 501.080 ####[facility] [address] [place], [address] FINGERSTICK GLU 230 mg/dL High 74-106 [facility] Comment on above: Result Comment: DELLA GEMENT OF PATIENT CARE PER NURSING PROTOCOL Performed By: #### L 501.080 ####[facility] [address] [place], [address] FINGERSTICK GLU 252 mg/dL High 74-106 [facility] Comment on above: Result Comment: DELLA GEMENT OF PATIENT CARE PER NURSING PROTOCOL Performed By: #### L 501.080 ####[facility] [address] [place], [address] CBC W/Diff, Automatedon 04-15 PATH REV Reviewed Normal [facility] Comment on above: Result Comment: Leuk ocytosis WITH Neutrophilic left shift.Clinical correlation necessary.Sheldon Baeza M.D. 04/30/24 AMENDED REPORT 04/30/24 1348 PATH REV previously reported as: August freida Performed By: #### L 501.4020, L300.4310, L500.4050, M200.1000, L300.3900, L100.0100, L503.6005 ####[facility] [address] [place], [address] Absolute Neut Normal 2.0-7.7 [facility] Comment on above: Result Comment: Canc elled via OM: Order cancelled - Patient discharged Performed By: #### L 500.2500, L100.0100 ####[facility] [address] [place], [address] HCT Normal 37-47 [facility] Comment on above: Result Comment: Canc elled via OM: Order cancelled - Patient discharged Performed By: #### L 500.2500, L100.0100 ####[facility] [address] [place], [address] HGB Normal 12.0-15.0 [facility] Comment on above: Result Comment: Canc elled via OM: Order cancelled - Patient discharged Performed By: #### L 500.2500, L100.0100 ####[facility] [address] [place], [address] MCH Normal 27.0-32.0 [facility] Comment on above: Result Comment: Canc elled via OM: Order cancelled - Patient discharged Performed By: #### L 500.2500, L100.0100 ####[facility] [address] [place], [address] MCHC Normal 32-36 [facility] Comment on above: Result Comment: Canc elled via OM: Order cancelled - Patient discharged Performed By: #### L 500.2500, L100.0100 ####[facility] [address] [place], [address] MCV Normal 81-99 [facility] Comment on above: Result Comment: Canc elled via OM: Order cancelled - Patient discharged Performed By: #### L 500.2500, L100.0100 ####[facility] [address] [place], [address] NEUT% Normal 47-70 [facility] Comment on above: Result Comment: Canc elled via OM: Order cancelled - Patient discharged Performed By: #### L 500.2500, L100.0100 ####[facility] [address] [place], [address] PLT Normal 150-450 [facility] Comment on above: Result Comment: Canc elled via OM: Order cancelled - Patient discharged Performed By: #### L 500.2500, L100.0100 ####[facility] [address] [place], [address] RBC Normal 4.2-5.4 [facility] Comment on above: Result Comment: Canc elled via OM: Order cancelled - Patient discharged Performed By: #### L 500.2500, L100.0100 ####[facility] [address] [place], [address] RDW CV Normal 11.6-14.6 [facility] Comment on above: Result Comment: Canc elled via OM: Order cancelled - Patient discharged Performed By: #### L 500.2500, L100.0100 ####[facility] [address] [place], [address] RDW SD Normal 35.1-43.9 [facility] Comment on above: Result Comment: Canc elled via OM: Order cancelled - Patient discharged Performed By: #### L 500.2500, L100.0100 ####[facility] [address] [place], [address] WBC Normal 4.4-11.0 [facility] Comment on above: Result Comment: Canc elled via OM: Order cancelled - Patient discharged Performed By: #### L 500.2500, L100.0100 ####[facility] [address] [place], [address] Chest 1 View (Portable)on Chest 1 View (Portable) Normal [facility] Urine Drug Screen (VISTA)on 04-30-2024 AMPHETAMINES Negative Normal <1000 ng/mL [facility] Comment on above: Performed By: #### L 505.5000 ####[facility] [address] [place], [address] BARBITIURATES Negative Normal < 200 ng/mL [facility] Comment on above: Performed By: #### L 505.5000 ####[facility] [address] [place], [address] BENZODIAZIPINE Negative Normal < 200 ng/mL [facility] Comment on above: Performed By: #### L 505.5000 ####[facility] [address] [place], [address] COCAINE Negative Normal < 300 ng/mL [facility] Comment on above: Performed By: #### L 505.5000 ####[facility] [address] [place], [address] ECSTACY Negative Normal < 500 ng/mL [facility] Comment on above: Performed By: #### L 505.5000 ####[facility] [address] [place], [address] METHADONE Negative Normal < 300 ng/mL [facility] Comment on above: Performed By: #### L 505.5000 ####[facility] [address] [place], [address] OPIATES Negative Normal < 300 ng/mL [facility] Comment on above: Performed By: #### L 505.5000 ####[facility] [address] [place], [address] PCP Negative Normal < 25 ng/mL [facility] Comment on above: Performed By: #### L 505.5000 ####[facility] [address] [place], [address] THC Negative Normal < 50 ng/mL [facility] Comment on above: Performed By: #### L 505.5000 ####[facility] [address] [place], [address] VISTA UDS PH 6 Normal [facility] Comment on above: Performed By: #### L 505.5000 ####[facility] [address] [place], [address] Acetone Serumon 04-29-2024 ACETONE SERUM Negative Normal NEG [facility] Comment on above: Performed By: #### L 501.6900 ####[facility] [address] [place], [address] Activated partial thrombopla stin time (aPTT) in platelet poor plasma by coagulation aOrdered By: Yonas Mccullough on 04-29-2024 aPTT Coag (PPP) [Time] 27.1 s 24.1-36.2 [facility] Albumin to globulin ratioOrd ered By: Yonas Mccullough on 04-29-2024 Albumin/Globulin [Mass ratio] 0.4 {ratio} Low 0.9-2.4 [facility] Comment on above: Order Comment: 'TROP ' Serial specimen #1, #2 or #3: 1 Performed By: #### L 501.4020, L300.4310, L500.4050, M200.1000, L300.3900, L100.0100, L503.6005 ####[facility] [address] [place], [address] Amorphous sediment detection in urine sediment by light microscopyOrdered By: Yonas Mccullough on 04-29-2024 Amorphous sediment LM Ql (Urine sed) 1+ URATE [facility] Basic Metabolic Profile (BMP )on 04-29-2024 BUN/CRE 32.6 RATIO High 10-20 [facility] Comment on above: Performed By: #### L 100.0100, L500.2500 ####[facility] [address] [place], [address] CA,Total 7.9 mg/dL Low 8.5-10.1 [facility] Comment on above: Performed By: #### L 100.0100, L500.2500 ####[facility] [address] [place], [address] Chloride [Moles/Vol] 109 mmol/L High 98-107 [facility] Comment on above: Performed By: #### L 100.0100, L500.2500 ####[facility] [address] [place], [address] Creatinine [Mass/Vol] 0.52 mg/dL Low 0.55-1.02 [facility] Comment on above: Result Comment: The validity of the calculated GFR GFRAA in patients over70 years has not been determined. Clinical correlation isessential. Performed By: #### L 100.0100, L500.2500 ####[facility] [address] [place], [address] ECRCL 131.15 ml/min Normal [facility] Comment on above: Performed By: #### L 100.0100, L500.2500 ####[facility] [address] [place], [address] EST GFR - AA 158 mL/min Normal >60 [facility] Comment on above: Result Comment: Afri can Japanese GFR Calc Performed By: #### L 100.0100, L500.2500 ####[facility] [address] [place], [address] GAP 6 Normal 5-15 [facility] Comment on above: Performed By: #### L 100.0100, L500.2500 ####[facility] [address] [place], [address] GFR/1.73 sq M.predicted among non-blacks MDRD (S/P/Bld) [Vol rate/Area] 130 mL/min/{1.73_m2} Normal >60 [facility] Comment on above: Result Comment: Non- GFR Calc Performed By: #### L 100.0100, L500.2500 ####[facility] [address] [place], [address] Glucose [Mass/Vol] 299 mg/dL High 74-106 [facility] Comment on above: Result Comment: Gluc ose result greater than or equal to 200 mg/dLsuggests DIABETES MELLITUS per A.D.A. criteria. Performed By: #### L 100.0100, L500.2500 ####[facility] [address] [place], [address] Potassium [Moles/Vol] 3.5 mmol/L Normal 3.5-5.1 [facility] Comment on above: Performed By: #### L 100.0100, L500.2500 ####[facility] [address] [place], [address] Sodium [Moles/Vol] 140 mmol/L Normal 136-145 [facility] Comment on above: Performed By: #### L 100.0100, L500.2500 ####[facility] [address] [place], [address] Bedside Glucoseon 04-29-2024 FINGERSTICK GLU 377 mg/dL High [facility]106 [facility] Comment on above: Result Comment: DELLA GEMENT OF PATIENT CARE PER NURSING PROTOCOL Performed By: #### L 501.080 ####[facility] [address] [place], [address] FINGERSTICK GLU 298 mg/dL High [address] [place] [address] Comment on above: Result Comment: DELLA GEMENT OF PATIENT CARE PER NURSING PROTOCOL Performed By: #### L 501.080 ####[facility] [address] [place], [address] FINGERSTICK GLU 261 mg/dL High [facility]106 [facility] Comment on above: Result Comment: DELLA GEMENT OF PATIENT CARE PER NURSING PROTOCOL Performed By: #### L 501.080 ####[facility] [address] [place], [address] Bilirubin Test strip Ql (U)O rdered By: Yonas Mccullough on 04-29-2024 Bilirubin Ql (U) Negative Negative [facility] Bilirubin, totalOrdered By: Yonas Mccullough on 04-29-2024 Bilirubin [Mass/Vol] 0.30 mg/dL Normal 0.20-1.00 [facility] Comment on above: For patients on eltr ombopag therapy, use of Dimension [place] TBIL is not recommended. Order Comment: 'TROP ' Serial specimen #1, #2 or #3: 1 Result Comment: For patients on eltrombopag therapy, use of Dimension [place] TBIL is not recommended. Performed By: #### L 501.4020, L300.4310, L500.4050, M200.1000, L300.3900, L100.0100, L503.6005 ####[facility] [address] [place], [address] Blood basophils/100 leukocyt esOrdered By: Yonas Mccullough on 04-29-2024 Basophils/100 WBC (Bld) 1 % 0-1 [facility] Blood cultureOrdered By: Jovita Mccullough on 04-29-2024 Bacteria identified Cx Nom (Bld) No growth in 5 days. [facility] Bacteria identified Cx Nom (Bld) No growth in 5 days. [facility] Brain/Head without Contrasto n 04-29-2024 Brain/Head without Contrast Normal [facility] CBC W/Diff, Automatedon 04-15 PATH REV Reviewed Normal [facility] Comment on above: Result Comment: Neut rophilic leukocytosis with left shift.Normocytic anemia.Clinical correlation necessary.Sheldon Baeza M.D. 04/29/24 AMENDED REPORT 04/29/24 1619 PATH REV previously reported as: August Performed By: #### L 100.0100, L500.2500 ####[facility] [address] [place], [address] CT Chest, Abd, Pel w/Contras ton 04-29-2024 CT Chest, Abd, Pel w/Contrast Normal [facility] Comprehensive Metabolic Prof ilon 04-29-2024 ALK P 311 U/L High 45-117 [facility] Comment on above: Order Comment: 'TROP ' Serial specimen #1, #2 or #3: 1 Performed By: #### L 501.4020, L300.4310, L500.4050, M200.1000, L300.3900, L100.0100, L503.6005 ####[facility] [address] [place], [address] BUN/CRE 19.5 RATIO Normal 10-20 [facility] Comment on above: Order Comment: 'TROP ' Serial specimen #1, #2 or #3: 1 Performed By: #### L 501.4020, L300.4310, L500.4050, M200.1000, L300.3900, L100.0100, L503.6005 ####[facility] [address] [place], [address] CA,Total 8.4 mg/dL Low 8.5-10.1 [facility] Comment on above: Order Comment: 'TROP ' Serial specimen #1, #2 or #3: 1 Performed By: #### L 501.4020, L300.4310, L500.4050, M200.1000, L300.3900, L100.0100, L503.6005 ####[facility] [address] [place], [address] Chloride [Moles/Vol] 103 mmol/L Normal 98-107 [facility] Comment on above: Order Comment: 'TROP ' Serial specimen #1, #2 or #3: 1 Performed By: #### L 501.4020, L300.4310, L500.4050, M200.1000, L300.3900, L100.0100, L503.6005 ####[facility] [address] [place], [address] Creatinine [Mass/Vol] 0.87 mg/dL Normal 0.55-1.02 [facility] Comment on above: Order Comment: 'TROP ' Serial specimen #1, #2 or #3: 1 Result Comment: The validity of the calculated GFR GFRAA in patients over70 years has not been determined. Clinical correlation isessential. Performed By: #### L 501.4020, L300.4310, L500.4050, M200.1000, L300.3900, L100.0100, L503.6005 ####[facility] [address] [place], [address] ECRCL 81.18 ml/min Normal [facility] Comment on above: Order Comment: 'TROP ' Serial specimen #1, #2 or #3: 1 Performed By: #### L 501.4020, L300.4310, L500.4050, M200.1000, L300.3900, L100.0100, L503.6005 ####[facility] [address] [place], [address] EST GFR - AA 87 mL/min Normal >60 [facility] Comment on above: Order Comment: 'TROP ' Serial specimen #1, #2 or #3: 1 Result Comment: Afri can Japanese GFR Calc Performed By: #### L 501.4020, L300.4310, L500.4050, M200.1000, L300.3900, L100.0100, L503.6005 ####[facility] [address] [place], [address] GAP 10 Normal 5-15 [facility] Comment on above: Order Comment: 'TROP ' Serial specimen #1, #2 or #3: 1 Performed By: #### L 501.4020, L300.4310, L500.4050, M200.1000, L300.3900, L100.0100, L503.6005 ####[facility] [address] [place], [address] GFR/1.73 sq M.predicted among non-blacks MDRD (S/P/Bld) [Vol rate/Area] 72 mL/min/{1.73_m2} Normal >60 [facility] Comment on above: Order Comment: 'TROP ' Serial specimen #1, #2 or #3: 1 Result Comment: Non- GFR Calc Performed By: #### L 501.4020, L300.4310, L500.4050, M200.1000, L300.3900, L100.0100, L503.6005 ####[facility] [address] [place], [address] Glucose [Mass/Vol] 400 mg/dL High 74-106 [facility] Comment on above: Order Comment: 'TROP ' Serial specimen #1, #2 or #3: 1 Result Comment: Gluc ose result greater than or equal to 200 mg/dLsuggests DIABETES MELLITUS per A.D.A. criteria. Performed By: #### L 501.4020, L300.4310, L500.4050, M200.1000, L300.3900, L100.0100, L503.6005 ####[facility] [address] [place], [address] Potassium [Moles/Vol] 3.7 mmol/L Normal 3.5-5.1 [facility] Comment on above: Order Comment: 'TROP ' Serial specimen #1, #2 or #3: 1 Performed By: #### L 501.4020, L300.4310, L500.4050, M200.1000, L300.3900, L100.0100, L503.6005 ####[facility] [address] [place], [address] Sodium [Moles/Vol] 138 mmol/L Normal 136-145 [facility] Comment on above: Order Comment: 'TROP ' Serial specimen #1, #2 or #3: 1 Performed By: #### L 501.4020, L300.4310, L500.4050, M200.1000, L300.3900, L100.0100, L503.6005 ####[facility] [address] [place], [address] T PROT 6.5 g/dL Normal 6.4-8.2 [facility] Comment on above: Order Comment: 'TROP ' Serial specimen #1, #2 or #3: 1 Performed By: #### L 501.4020, L300.4310, L500.4050, M200.1000, L300.3900, L100.0100, L503.6005 ####[facility] [address] [place], [address] CO2 [Moles/Vol] 25.0 mmol/L Normal 21.0-32.0 [facility] Comment on above: Order Comment: 'TROP ' Serial specimen #1, #2 or #3: 1 Performed By: #### L 501.4020, L300.4310, L500.4050, M200.1000, L300.3900, L100.0100, L503.6005 ####[facility] [address] [place], [address] Performed By: #### L 100.0100, L500.2500 ####[facility] [address] [place], [address] Urea nitrogen [Mass/Vol] 17 mg/dL Normal 7-18 [facility] Comment on above: Order Comment: 'TROP ' Serial specimen #1, #2 or #3: 1 Performed By: #### L 501.4020, L300.4310, L500.4050, M200.1000, L300.3900, L100.0100, L503.6005 ####[facility] [address] [place], [address] Performed By: #### L 100.0100, L500.2500 ####[facility] [address] [place], [address] Comprehensive Metabolic Prof ilOrdered By: Yonas Mccullough on 04-29-2024 AST [Catalytic activity/Vol] 30 U/L Normal 15-37 [facility] Comment on above: Order Comment: 'TROP ' Serial specimen #1, #2 or #3: 1 Performed By: #### L 501.4020, L300.4310, L500.4050, M200.1000, L300.3900, L100.0100, L503.6005 ####[facility] [address] [place], [place], [address] Discharge Instructionon 04-15 Discharge Instruction Normal [facility] Emergency Department Summary on 04-29-2024 Emergency Department Summary Normal [facility] Femur Min 2 Viewson 04-29-19 25 Femur Min 2 Views Normal [facility] H AND P Exam - Hospitaliston 04-29-2024 H&P Exam - Hospitalist Normal [facility] Influenza virus A and B and SARS-CoV-2 (COVID-19) and Respiratory syncytial virus RNAOrdered By: Yonas Mccullough on 04-29-2024 SARS-CoV-2 (COVID-19) RNA SIRENA+probe Ql (Unsp spec) [facility] International normalized rat io (INR) calculationOrdered By: Yonas Mccullough on 04-29-2024 INR Coag (Bld) [Relative time] 0.9 {INR} [facility] Ketones Test strip Ql (U)Ord ered By: Yonas Mccullough on 04-29-2024 Ketones Ql (U) Negative Negative [facility] Knee 3 Viewson 04-29-2024 Knee 3 Views Normal [facility] L501.4020on 04-29-2024 TROPONIN-I HS 16 pg/mL Normal 3.0-54.0 [facility] Comment on above: Order Comment: 'TROP ' Serial specimen #1, #2 or #3: 1 Result Comment: Plea se Note: New Test Units and Gender Specific Reference Ranges. For more information see Policy Stat Procedure [place] High Sensitivity Troponin (TNIH) and attachments. Performed By: #### L 501.4020, L300.4310, L500.4050, M200.1000, L300.3900, L100.0100, L503.6005 ####[facility] [address] [place], [address] Laboratory - Hematology and Cell countsOrdered By: Yonas Mccullough on 04-29-2024 Anisocytosis Ql (Bld) RARE [facility] Lactic Acidon 04-29-2024 Lactate [Moles/Vol] 4.1 mmol/L Invalid Interpretation Code 0.4-1.9 [facility] Comment on above: Order Comment: Comme nts: if result >2, system reflex orders 2nd test @ 4hrsY Result Comment: Crit ical Result(s) Called at: 23:07:45 04/29/2024 by: JENNIFER MARINO. Results read back by same. Performed By: #### L 503.6005, L501.9520 ####[facility] [address] [place], [address] Lactate [Moles/Vol] 4.0 mmol/L Invalid Interpretation Code 0.4-1.9 [facility] Comment on above: Order Comment: Y Result Comment: Crit ical Result(s) Called at: 21:18:30 04/29/2024 by: JENNIFER JAVIER. Results read back by same. Performed By: #### L 501.4020, L300.4310, L500.4050, M200.1000, L300.3900, L100.0100, L503.6005 ####[facility] [address] [place], [address] Lactic acid measurementOrder ed By: Vicente Rossi on 04-29-2024 Lactate [Moles/Vol] 4.1 mmol/L High 0.4-2.0 [facility] Comment on above: Critical Result(s) C alled at: 23:07:45 04/29/2024 by: WILY SÁNCHEZ TO RENETTA MARINO. Results read back by same. Legionella Antigen Urineon 0 04-29-2024 LEGU Normal [facility] Comment on above: Performed By: #### M 300.4500 ####[facility] [address] [place], [address] M100.678on 04-29-2024 M100.678 Pending SARS-CoV-2 (COVID 19) Negative INFLUENZA A Negative INFLUENZA B Negative RSV PCR Negative Normal [facility] Comment on above: Performed By: #### M 100.678 ####[facility] [address] [place], [address] Microscopic analysis of urin e for red blood cells (RBC)Ordered By: Yonas Mccullough on 04-29-2024 Microscopic analysis of urine for red blood cells (RBC) 0-5 SEEN /hpf 0-5 [facility] Mucus LM Ql (Urine sed)Order ed By: Yonas Mccullough on 04-29-2024 Mucus Ql (Urine sed) 0 SEEN /hpf [facility] Myelocyte %Ordered By: Yonas Mccullough on 04-29-2024 Myelocytes/100 WBC (Bld) 6 % High 0-0 [facility] Nitrite Test strip Ql (U)Ord ered By: Yonas Mccullough on 04-29-2024 Nitrite Ql (U) Negative Negative [facility] No Panel InformationOrdered By: Vicente Rossi on 04-29-2024 Urine Drug Screen Comment [facility] Comment on above: CONFIRMATORY TESTING FOR [...] on 04-29-2024 Ovalocytes LM Ql (Bld) RARE [facility] Partial Thromboplast Timeon 04-29-2024 aPTT Coag (Bld) [Time] 27.1 s Normal 24.1-36.2 [facility] Comment on above: Performed By: #### L 501.4020, L300.4310, L500.4050, M200.1000, L300.3900, L100.0100, L503.6005 ####[facility] [address] [place], [address] Protein Test strip Ql (U)Ord ered By: Yonas Mccullough on 04-29-2024 Protein Ql (U) 15 mg/dl High Negative [facility] Prothrombin Time w/INRon INR Coag (PPP) [Relative time] 0.9 {INR} Normal [facility] Comment on above: Performed By: #### L 501.4020, L300.4310, L500.4050, M200.1000, L300.3900, L100.0100, L503.6005 ####[facility] [address] [place], [place], [phone] PT Coag (PPP) [Time] 12.8 s Normal 11.7-14.9 [facility] Comment on above: Performed By: #### L 501.4020, L300.4310, L500.4050, M200.1000, L300.3900, L100.0100, L503.6005 ####[facility] [address] [place], [place], [id number] Prothrombin timeOrdered By: Yonas Mccullough on 04-29-2024 PT Coag (PPP) [Time] 12.8 s 11.7-14.9 [facility] Quantitative urine opiates m easurementOrdered By: Vicente Rossi on 04-29-2024 Opiates Ql (U) Negative < 300 ng/mL [facility] Serum acetone measurementOrd ered By: Vicente Rossi on 04-29-2024 Acetone [Mass/Vol] Negative NEG [facility] Serum globulin measurementOr dered By: Yonas Mccullough on 04-29-2024 Globulin (S) [Mass/Vol] 4.5 g/dL High 2.2-4.2 [facility] Comment on above: Order Comment: 'TROP ' Serial specimen #1, #2 or #3: 1 Performed By: #### L 501.4020, L300.4310, L500.4050, M200.1000, L300.3900, L100.0100, L503.6005 ####[facility] [address] [place], [place], [address] Serum or plasma alanine ortiz otransferase (ALT) measurementOrdered By: Yonas Mccullough on 04-29-2024 ALT [Catalytic activity/Vol] 30 U/L Normal 13-56 [facility] Comment on above: Order Comment: 'TROP ' Serial specimen #1, #2 or #3: 1 Performed By: #### L 501.4020, L300.4310, L500.4050, M200.1000, L300.3900, L100.0100, L503.6005 ####[facility] [address] [facility] [place], [address] Serum or plasma albumin anna urement (mass/volume)Ordered By: Yonas Mccullough on 04-29-2024 Albumin [Mass/Vol] 2.0 g/dL Low 3.2-5.0 [facility] Comment on above: Order Comment: 'TROP ' Serial specimen #1, #2 or #3: 1 Performed By: #### L 501.4020, L300.4310, L500.4050, M200.1000, L300.3900, L100.0100, L503.6005 ####[facility] [address] [facility] [place], [address] Serum or plasma alkaline zeke sphatase measurementOrdered By: Yonas Mccullough on 04-29-2024 ALP [Catalytic activity/Vol] 311 U/L High 45-117 [facility] Serum or plasma thyroid stim ulating hormone (TSH) measurement (units/volume)Ordered By: Vicente Rossi on 04-29-2024 TSH Qn 1.540 uIU/mL 0.358-3.740 [facility] Spine Cervical without Contr ason 04-29-2024 Spine Cervical without Contras Normal [facility] Squamous epithelial cells de tection in urine sediment by light microscopyOrdered By: Yonas Mccullough on 04-29-2024 Epithelial cells.squamous LM Ql (Urine sed) 5-10 SEEN /hpf 5-10 [facility] Strep pneumoniae Antig(UR,CS F)on 04-29-2024 STPAG Normal [facility] Comment on above: Performed By: #### M 300.4600 ####[facility] [address] [place], [address] Thyroid Stim Hormone (TSH)on 04-29-2024 TSH 1.540 uIU/mL Normal 0.358-3.740 [facility] Comment on above: Performed By: #### L 503.6005, L501.9520 ####[facility] [address] [place], [address] Total proteinOrdered By: Jovita Mccullough on 04-29-2024 Protein [Mass/Vol] 6.5 g/dL 6.4-8.2 [facility] Toxic leukocyte granulation detectionOrdered By: Yonas Mccullough on 04-29-2024 Toxic granules LM Ql (Bld) RARE [facility] Troponin IOrdered By: Yonas Mccullough on 04-29-2024 Troponin I 16 pg/mL 3.0-54.0 [facility] Comment on above: Please Note: New [place]ann t Units and Gender Specific Reference Ranges. For more information see Policy Stat Procedure [place] High Sensitivity Troponin (TNIH) and attachments. Urinalysis, Completeon 04-29 AMORPHOUS 1+ URATE Normal [facility] Comment on above: Order Comment: CLEAN CATCH Performed By: #### L 400.0001, M1 ####[facility] [address] [place], [address] EPI,SQUAMOUS 5-10 SEEN Normal 5-10 [facility] Comment on above: Order Comment: CLEAN CATCH Performed By: #### L 400.0001, M1 ####[facility] [address] [place], [address] RBC 0-5 SEEN Normal 0-5 [facility] Comment on above: Order Comment: CLEAN CATCH Performed By: #### L 400.0001, M100.0 ####[facility] [address] [place], [address] BACTERIA 0 SEEN Normal None Seen [facility] Comment on above: Order Comment: CLEAN CATCH Performed By: #### L 400.0001, M100.2200 ####[facility] [address] [place], [address] Mucus Ql (Urine sed) 0 SEEN Normal [facility] Comment on above: Order Comment: CLEAN CATCH Performed By: #### L 400.0001, M100.2200 ####[facility] [address] [place], [address] WBC 0 SEEN Normal 0-5 [facility] Comment on above: Order Comment: CLEAN CATCH Performed By: #### L 400.0001, M100.2200 ####[facility] [address] [place], [address] Urine Legionella pneumophila antigen detectionOrdered By: Vicente Rossi on 04-29-2024 L. pneumophila Ag Ql (U) [facility] Urine amphetamine measuremen tOrdered By: Vicente Rossi on 04-29-2024 Amphetamines Ql (U) Negative <1000 ng/mL [facility] Urine benzodiazepine levelOr dered By: Vicente Rossi on 04-29-2024 Benzodiazepines Ql (U) Negative < 200 ng/mL [facility] Urine clarityOrdered By: Jovita Mccullough on 04-29-2024 Clarity (U) Clear Clear [facility] Urine cocaine levelOrdered B y: Vicente Rossi on 04-29-2024 Cocaine Ql (U) Negative < 300 ng/mL [facility] Urine color determinationOrd ered By: Yonas Mccullough on 04-29-2024 Color (U) Yellow Yellow [facility] Urine cultureOrdered By: Jovita Mccullough on 04-29-2024 Bacteria identified Cx Nom (U) Yeast, not Nirmala albicans Abnormal [facility] Urine ehvfl-9-pvikyllhfljvgg abinol (THC) measurementOrdered By: Vicente Rossi on 04-29-2024 Cannabinoids Screen Ql (U) Negative < 50 ng/mL [facility] Urine glucose detectionOrder ed By: Yonas Mccullough on 04-29-2024 Glucose Ql (U) 1000 mg/dl High Normal [facility] Urine leukocyte esterase det ection by dipstickOrdered By: Yonas Mccullough on 04-29-2024 Leukocyte esterase Test strip Ql (U) Negative Negative [facility] Urine pHOrdered By: Yonas oakley on 04-29-2024 pH (U) 6.5 [pH] 5.0 - 8.0 [facility] Urine phencyclidine (PCP) de tectionOrdered By: Vicente Rossi on 04-29-2024 Phencyclidine Ql (U) Negative < 25 ng/mL [facility] Urine sediment bacteria coun t by microscopy (number/high power field)Ordered By: Yonas Mccullough on 04-29-2024 Bacteria LM.HPF (Urine sed) [#/Area] 0 /[HPF] None Seen [facility] Urine specific gravity measu rementOrdered By: Yonas Mccullough on 04-29-2024 Specific gravity (U) [Rel density] 1.010 1.002-1.030 [facility] Urine urobilinogen measureme ntOrdered By: Yonas Mccullough on 04-29-2024 Urobilinogen Ql (U) Normal mg/dl Normal [facility] Vancomycin, Trough Levelon 0 04-29-2024 VANCO, TROUGH 20.7 ug/mL High 5.0-15.0 [facility] Comment on above: Order Comment: Comme nts: Trough to be drawn 30 mins prior to scheduled [id number] Result Comment: VANC OMYCIN STANDARED DRUG THERAPY TROUGH LEVEL: 5.0 - 15.0 mg/LVANCOMYCIN HIGH INTENSITY THERAPY TROUGH LEVEL: 15.0 - 20.0 mg/LHigh Intensity therapy recommended for serious lifethreatening infections include:- Qiahvjdnru-Ixwccfdnfjcp-Axzykbjpi (Ventilator/Healtcare Associated)-SepsisPLEASE CONTACT PHARMACY SERVICES (#2734) FOR INTERPRETATIONOF RESULTS. Performed By: #### L 501.3903 ####[facility] [address] [place], [address] White blood cell countOrdere d By: Yonas Mccullough on 04-29-2024 White blood cell count 0 SEEN /hpf 0-5 [facility] Basic Metabolic Profile (BMP )on 04-28-2024 BUN/CRE 37.9 RATIO High 10-20 [facility] Comment on above: Performed By: #### L 500.2500, L100.0100 ####[facility] [address] [place], [address] CA,Total 8.0 mg/dL Low 8.5-10.1 [facility] Comment on above: Performed By: #### L 500.2500, L100.0100 ####[facility] [address] [place], [address] Chloride [Moles/Vol] 109 mmol/L High 98-107 [facility] Comment on above: Performed By: #### L 500.2500, L100.0100 ####[facility] [address] [place], [address] CO2 [Moles/Vol] 27.0 mmol/L Normal 21.0-32.0 [facility] Comment on above: Performed By: #### L 500.2500, L100.0100 ####[facility] [address] [place], [address] Creatinine [Mass/Vol] 0.50 mg/dL Low 0.55-1.02 [facility] Comment on above: Result Comment: The validity of the calculated GFR GFRAA in patients over70 years has not been determined. Clinical correlation isessential. Performed By: #### L 500.2500, L100.0100 ####[facility] [address] [place], [address] ECRCL 134.84 ml/min Normal [facility] Comment on above: Performed By: #### L 500.2500, L100.0100 ####[facility] [address] [place], [address] EST GFR - AA 165 mL/min Normal >60 [facility] Comment on above: Result Comment: Afri can Japanese GFR Calc Performed By: #### L 500.2500, L100.0100 ####[facility] [address] [place], [address] GAP 2 Low 5-15 [facility] Comment on above: Performed By: #### L 500.2500, L100.0100 ####[facility] [address] [place], [address] GFR/1.73 sq M.predicted among non-blacks MDRD (S/P/Bld) [Vol rate/Area] 137 mL/min/{1.73_m2} Normal >60 [facility] Comment on above: Result Comment: Non- GFR Calc Performed By: #### L 500.2500, L100.0100 ####[facility] [address] [place], [address] Glucose [Mass/Vol] 236 mg/dL High 74-106 [facility] Comment on above: Result Comment: Gluc ose result greater than or equal to 200 mg/dLsuggests DIABETES MELLITUS per A.D.A. criteria. Performed By: #### L 500.2500, L100.0100 ####[facility] [address] [place], [address] Potassium [Moles/Vol] 3.1 mmol/L Low 3.5-5.1 [facility] Comment on above: Performed By: #### L 500.2500, L100.0100 ####[facility] [address] [place], [address] Sodium [Moles/Vol] 138 mmol/L Normal 136-145 [facility] Comment on above: Performed By: #### L 500.2500, L100.0100 ####[facility] [address] [place], [address] Urea nitrogen [Mass/Vol] 19 mg/dL High 7-18 [facility] Comment on above: Performed By: #### L 500.2500, L100.0100 ####[facility] [address] [place], [address] Bedside Glucoseon 04-28-2024 FINGERSTICK GLU 291 mg/dL High 74-106 [facility] Comment on above: Result Comment: DELLA GEMENT OF PATIENT CARE PER NURSING PROTOCOL Performed By: #### L 501.080 ####[facility] [address] [place], [address] FINGERSTICK GLU 229 mg/dL High 74-106 [facility] Comment on above: Result Comment: DELLA GEMENT OF PATIENT CARE PER NURSING PROTOCOL Performed By: #### L 501.080 ####[facility] [address] [place], [address] FINGERSTICK GLU 157 mg/dL High 74-106 [facility] Comment on above: Result Comment: DELLA GEMENT OF PATIENT CARE PER NURSING PROTOCOL Performed By: #### L 501.080 ####[facility] [address] [place], [address] FINGERSTICK GLU 177 mg/dL High 74-106 [facility] Comment on above: Result Comment: DELLA GEMENT OF PATIENT CARE PER NURSING PROTOCOL Performed By: #### L 501.080 ####[facility] [address] [place], [address] CBC W/Diff, Automatedon 04-15 PATH REV Reviewed Normal [facility] Comment on above: Result Comment: Leuk ocytosis WITH Neutrophilic left shift.Normocytic anemia.Clinical correlation necessary.Sheldon Baeza M.D. 04/28/24 AMENDED REPORT 04/28/24 1153 PATH REV previously reported as: Kim guan Performed By: #### L 500.2500, L100.0100 ####[facility] [address] [place], [address] Basic Metabolic Profile (BMP )on 04-27-2024 BUN/CRE 36.0 RATIO High 10-20 [facility] Comment on above: Performed By: #### L 100.0100, L500.2500 ####[facility] [address] [place], [address] CA,Total 7.9 mg/dL Low 8.5-10.1 [facility] Comment on above: Performed By: #### L 100.0100, L500.2500 ####[facility] [address] [place], [address] Chloride [Moles/Vol] 112 mmol/L High 98-107 [facility] Comment on above: Performed By: #### L 100.0100, L500.2500 ####[facility] [address] [place], [address] CO2 [Moles/Vol] 23.0 mmol/L Normal 21.0-32.0 [facility] Comment on above: Performed By: #### L 100.0100, L500.2500 ####[facility] [address] [place], [address] Creatinine [Mass/Vol] 0.47 mg/dL Low 0.55-1.02 [facility] Comment on above: Result Comment: The validity of the calculated GFR GFRAA in patients over70 years has not been determined. Clinical correlation isessential. Performed By: #### L 100.0100, L500.2500 ####[facility] [address] [place], [address] ECRCL 139.86 ml/min Normal [facility] Comment on above: Performed By: #### L 100.0100, L500.2500 ####[facility] [address] [place], [address] EST GFR - AA 177 mL/min Normal >60 [facility] Comment on above: Result Comment: Afri can Japanese GFR Calc Performed By: #### L 100.0100, L500.2500 ####[facility] [address] [place], [address] GAP 4 Low 5-15 [facility] Comment on above: Performed By: #### L 100.0100, L500.2500 ####[facility] [address] [place], [address] GFR/1.73 sq M.predicted among non-blacks MDRD (S/P/Bld) [Vol rate/Area] 146 mL/min/{1.73_m2} Normal >60 [facility] Comment on above: Result Comment: Non- GFR Calc Performed By: #### L 100.0100, L500.2500 ####[facility] [address] [place], [address] Glucose [Mass/Vol] 374 mg/dL High 74-106 [facility] Comment on above: Result Comment: Gluc ose result greater than or equal to 200 mg/dLsuggests DIABETES MELLITUS per A.D.A. criteria. Performed By: #### L 100.0100, L500.2500 ####[facility] [address] [place], [address] Potassium [Moles/Vol] 3.9 mmol/L Normal 3.5-5.1 [facility] Comment on above: Performed By: #### L 100.0100, L500.2500 ####[facility] [address] [place], [address] Sodium [Moles/Vol] 139 mmol/L Normal 136-145 [facility] Comment on above: Performed By: #### L 100.0100, L500.2500 ####[facility] [address] [place], [address] Urea nitrogen [Mass/Vol] 17 mg/dL Normal 7-18 [facility] Comment on above: Performed By: #### L 100.0100, L500.2500 ####[facility] [address] [place], [address] Bedside Glucoseon 04-27-2024 FINGERSTICK GLU 358 mg/dL High 74-106 [facility] Comment on above: Result Comment: DELLA GEMENT OF PATIENT CARE PER NURSING PROTOCOL Performed By: #### L 501.080 ####[facility] [address] [place], [address] FINGERSTICK GLU 429 mg/dL High 74-106 [facility] Comment on above: Result Comment: DELLA GEMENT OF PATIENT CARE PER NURSING PROTOCOL Performed By: #### L 501.080 ####[facility] [address] [place], [address] FINGERSTICK GLU 356 mg/dL High -106 [facility] Comment on above: Result Comment: DELLA GEMENT OF PATIENT CARE PER NURSING PROTOCOL Performed By: #### L 501.080 ####[facility] [address] [place], [address] FINGERSTICK GLU 340 mg/dL High [address] [place] [address] Comment on above: Result Comment: DELLA GEMENT OF PATIENT CARE PER NURSING PROTOCOL Performed By: #### L 501.080 ####[facility] [address] [place], [address] CBC W/Diff, Automatedon 04-15 PATH REV Reviewed Normal [facility] Comment on above: Result Comment: Neut rophilic leukocytosis with left shift.Clinical correlation necessary.Sheldon Baeza M.D. 04/27/24 AMENDED REPORT 04/27/24 1340 PATH REV previously reported as: August Performed By: #### L 100.0100, L500.2500 ####[facility] [address] [place], [address] PATH REV Reviewed Normal [facility] Comment on above: Result Comment: Neut rophilic leukocytosis.Normocytic anemia.MILD Thrombocytopenia.Clinical correlation necessary.Sheldon Baeza M.D. 04/27/24 AMENDED REPORT 04/27/24 1334 PATH REV previously reported as: August foll Performed By: #### L 500.2500, L100.0100 ####[facility] [address] [place], [address] PATH REV Reviewed Normal [facility] Comment on above: Result Comment: Neut rophilic leukocytosis.Clinical correlation necessary.Sheldon Baeza M.D. 04/27/24 AMENDED REPORT 04/27/24 0941 PATH REV previously reported as: August Performed By: #### L 100.0100, L501.2300, L501.9985 ####[facility] [address] [place], [place], [address] PATH REV Reviewed Normal [facility] Comment on above: Result Comment: Neut rophilic leukocytosis.Clinical correlation necessary.Sheldon Baeza M.D. 04/27/24 AMENDED REPORT 04/27/24 0940 PATH REV previously reported as: August Performed By: #### L 501.6900, L500.2500, L100.0100 ####[facility] [address] [place], [address] Chest 1 View (Portable)on Chest 1 View (Portable) Normal [facility] Vancomycin, Trough Levelon 0 04-27-2024 VANCO, TROUGH 18.3 ug/mL High 5.0-15.0 [facility] Comment on above: Order Comment: 1999 Result Comment: VANC OMYCIN STANDARED DRUG THERAPY TROUGH LEVEL: 5.0 - 15.0 mg/LVANCOMYCIN HIGH INTENSITY THERAPY TROUGH LEVEL: 15.0 - 20.0 mg/LHigh Intensity therapy recommended for serious lifethreatening infections include:- Daphcctnyz-Eiycqyulctew-Csnsfqolj (Ventilator/Healtcare Associated)-SepsisPLEASE CONTACT PHARMACY SERVICES (#4494) FOR INTERPRETATIONOF RESULTS. Performed By: #### L 501.8820 ####[facility] [address] [place], [address] Basic Metabolic Profile (BMP )on 04-26-2024 BUN/CRE 35.7 RATIO High 10-20 [facility] Comment on above: Performed By: #### L 500.2500, L100.0100 ####[facility] [address] [place], [address] CA,Total 7.8 mg/dL Low 8.5-10.1 [facility] Comment on above: Performed By: #### L 500.2500, L100.0100 ####[facility] [address] [place], [address] Chloride [Moles/Vol] 114 mmol/L High 98-107 [facility] Comment on above: Performed By: #### L 500.2500, L100.0100 ####[facility] [address] [place], [address] CO2 [Moles/Vol] 23.0 mmol/L Normal 21.0-32.0 [facility] Comment on above: Performed By: #### L 500.2500, L100.0100 ####[facility] [address] [place], [address] Creatinine [Mass/Vol] 0.48 mg/dL Low 0.55-1.02 [facility] Comment on above: Result Comment: The validity of the calculated GFR GFRAA in patients over70 years has not been determined. Clinical correlation isessential. Performed By: #### L 500.2500, L100.0100 ####[facility] [address] [place], [address] ECRCL 136.86 ml/min Normal [facility] Comment on above: Performed By: #### L 500.2500, L100.0100 ####[facility] [address] [place], [address] EST GFR - AA 175 mL/min Normal >60 [facility] Comment on above: Result Comment: Afri can Japanese GFR Calc Performed By: #### L 500.2500, L100.0100 ####[facility] [address] [place], [address] GAP 3 Low 5-15 [facility] Comment on above: Performed By: #### L 500.2500, L100.0100 ####[facility] [address] [place], [address] GFR/1.73 sq M.predicted among non-blacks MDRD (S/P/Bld) [Vol rate/Area] 145 mL/min/{1.73_m2} Normal >60 [facility] Comment on above: Result Comment: Non- GFR Calc Performed By: #### L 500.2500, L100.0100 ####[facility] [address] [place], [address] Glucose [Mass/Vol] 71 mg/dL Low 74-106 [facility] Comment on above: Performed By: #### L 500.2500, L100.0100 ####[facility] [address] [place], [address] Potassium [Moles/Vol] 3.0 mmol/L Low 3.5-5.1 [facility] Comment on above: Performed By: #### L 500.2500, L100.0100 ####[facility] [address] [place], [address] Sodium [Moles/Vol] 140 mmol/L Normal 136-145 [facility] Comment on above: Performed By: #### L 500.2500, L100.0100 ####[facility] [address] [place], [address] Urea nitrogen [Mass/Vol] 17 mg/dL Normal 7-18 [facility] Comment on above: Performed By: #### L 500.2500, L100.0100 ####[facility] [address] [place], [address] Bedside Glucoseon 04-26-2024 FINGERSTICK GLU 342 mg/dL High 74-106 [facility] Comment on above: Result Comment: DELLA GEMENT OF PATIENT CARE PER NURSING PROTOCOL Performed By: #### L 501.080 ####[facility] [address] [place], [address] FINGERSTICK GLU 156 mg/dL High 74-106 [facility] Comment on above: Result Comment: DELLA GEMENT OF PATIENT CARE PER NURSING PROTOCOL Performed By: #### L 501.080 ####[facility] [address] [place], [address] FINGERSTICK GLU 164 mg/dL High 74-106 [facility] Comment on above: Result Comment: DELLA GEMENT OF PATIENT CARE PER NURSING PROTOCOL Performed By: #### L 501.080 ####[facility] [address] [place], [address] FINGERSTICK GLU 59 mg/dL Low 74-106 [facility] Comment on above: Result Comment: Dr Nesha Shannon GivenMANAGEMENT OF PATIENT CARE PER NURSING PROTOCOL Performed By: #### L 501.080 ####[facility] [address] [place], [address] FINGERSTICK GLU 112 mg/dL High 74-106 [facility] Comment on above: Result Comment: DELLA GEMENT OF PATIENT CARE PER NURSING PROTOCOL Performed By: #### L 501.080 ####[facility] [address] [place], [address] FINGERSTICK GLU 58 mg/dL Low 74-106 [facility] Comment on above: Result Comment: DELLA GEMENT OF PATIENT CARE PER NURSING PROTOCOL Performed By: #### L 501.080 ####[facility] [address] [place], [address] CPK Total, Creatine Kinaseon 01-12-2025 CPK TOTAL 80 U/L Normal 26-192 [facility] Comment on above: Order Comment: Comme nts: Add onto previous labs if possibleAdd onto previous labs if possible Performed By: #### L 501.3620, L504.2610, L500.3400, L501.5200, L503.6030 ####[facility] [address] [place], [address] CT Chest, Abd, Pel w/Contras ton 04-26-2024 CT Chest, Abd, Pel w/Contrast Normal [facility] Chest 1 View (Portable)on Chest 1 View (Portable) Normal [facility] Culture, Blood (WB)on 2024 CUB Normal [facility] Comment on above: Performed By: #### L 503.6005, M200.1000, L501.2300 ####[facility] [address] [place], [address] Iron+Iron Binding Capacityon 04-26-2024 Iron [Mass/Vol] 19 ug/dL Low 50-170 [facility] Comment on above: Order Comment: Comme nts: Add onto previous labs if possibleAdd onto previous labs if possible Performed By: #### L 501.3620, L504.2610, L500.3400, L501.5200, L503.6030 ####[facility] [address] [place], [address] IRON SATURATION 11.8 Low 15.0-55.0 [facility] Comment on above: Order Comment: Comme nts: Add onto previous labs if possibleAdd onto previous labs if possible Performed By: #### L 501.3620, L504.2610, L500.3400, L501.5200, L503.6030 ####[facility] [address] [place], [address] TIBC 161 ug/dL Low 250-450 [facility] Comment on above: Order Comment: Comme nts: Add onto previous labs if possibleAdd onto previous labs if possible Performed By: #### L 501.3620, L504.2610, L500.3400, L501.5200, L503.6030 ####[facility] [address] [place], [address] LDHon 04-26-2024 LDH 227 U/L Normal 84-246 [facility] Comment on above: Order Comment: Comme nts: Add onto previous labs if possibleAdd onto previous labs if possible Performed By: #### L 501.3620, L504.2610, L500.3400, L501.5200, L503.6030 ####[facility] [address] [place], [address] Liver Profileon 04-26-2024 Albumin [Mass/Vol] 1.4 g/dL Low 3.2-5.0 [facility] Comment on above: Order Comment: Comme nts: Add onto previous labs if possibleAdd onto previous labs if possible Performed By: #### L 501.3620, L504.2610, L500.3400, L501.5200, L503.6030 ####[facility] [address] [place], [address] ALK P 103 U/L Normal 45-117 [facility] Comment on above: Order Comment: Comme nts: Add onto previous labs if possibleAdd onto previous labs if possible Performed By: #### L 501.3620, L504.2610, L500.3400, L501.5200, L503.6030 ####[facility] [address] [place], [address] ALT [Catalytic activity/Vol] 22 U/L Normal 13-56 [facility] Comment on above: Order Comment: Comme nts: Add onto previous labs if possibleAdd onto previous labs if possible Performed By: #### L 501.3620, L504.2610, L500.3400, L501.5200, L503.6030 ####[facility] [address] [place], [address] AST [Catalytic activity/Vol] 20 U/L Normal 15-37 [facility] Comment on above: Order Comment: Comme nts: Add onto previous labs if possibleAdd onto previous labs if possible Performed By: #### L 501.3620, L504.2610, L500.3400, L501.5200, L503.6030 ####[facility] [address] [place], [address] Bilirubin [Mass/Vol] 0.60 mg/dL Normal 0.20-1.00 [facility] Comment on above: Order Comment: Comme nts: Add onto previous labs if possibleAdd onto previous labs if possible Result Comment: For patients on eltrombopag therapy, use of Dimension [place] TBIL is not recommended. Performed By: #### L 501.3620, L504.2610, L500.3400, L501.5200, L503.6030 ####[facility] [address] [place], [address] Bilirubin.direct [Mass/Vol] 0.32 mg/dL High 0.00-0.30 [facility] Comment on above: Order Comment: Comme nts: Add onto previous labs if possibleAdd onto previous labs if possible Performed By: #### L 501.3620, L504.2610, L500.3400, L501.5200, L503.6030 ####[facility] [address] [place], [address] Globulin (S) [Mass/Vol] 3.1 g/dL Normal 2.2-4.2 [facility] Comment on above: Order Comment: Comme nts: Add onto previous labs if possibleAdd onto previous labs if possible Performed By: #### L 501.3620, L504.2610, L500.3400, L501.5200, L503.6030 ####[facility] [address] [place], [address] T PROT 4.5 g/dL Low 6.4-8.2 [facility] Comment on above: Order Comment: Comme nts: Add onto previous labs if possibleAdd onto previous labs if possible Performed By: #### L 501.3620, L504.2610, L500.3400, L501.5200, L503.6030 ####[facility] [address] [place], [address] Magnesiumon 04-26-2024 Magnesium [Mass/Vol] 1.9 mg/dL Normal 1.6-2.6 [facility] Comment on above: Order Comment: Comme nts: Add onto previous labs if possibleAdd onto previous labs if possible Performed By: #### L 501.3620, L504.2610, L500.3400, L501.5200, L503.6030 ####[facility] [address] [place], [address] T4 Free Directon 04-26-2024 T4 FREE DIRECT 1.08 ng/dL Normal 0.76-1.46 [facility] Comment on above: Order Comment: Comme nts: Add onto previous labs if possibleAdd onto previous labs if possible Performed By: #### L 506.0400, L501.9520 ####[facility] [address] [place], [address] Thyroid Stim Hormone (TSH)on 04-26-2024 TSH 0.703 uIU/mL Normal 0.358-3.740 [facility] Comment on above: Order Comment: Comme nts: Add onto previous labs if possibleAdd onto previous labs if possible Performed By: #### L 506.0400, L501.9520 ####[facility] [address] [place], [address] Basic Metabolic Profile (BMP )on 04-25-2024 BUN/CRE 38.8 RATIO High 10-20 [facility] Comment on above: Performed By: #### L 501.2300, L500.2500 ####[facility] [address] [place], [address] CA,Total 7.3 mg/dL Low 8.5-10.1 [facility] Comment on above: Performed By: #### L 501.2300, L500.2500 ####[facility] [address] [place], [address] Chloride [Moles/Vol] 114 mmol/L High 98-107 [facility] Comment on above: Performed By: #### L 501.2300, L500.2500 ####[facility] [address] [place], [address] CO2 [Moles/Vol] 21.0 mmol/L Normal 21.0-32.0 [facility] Comment on above: Performed By: #### L 501.2300, L500.2500 ####[facility] [address] [place], [address] Creatinine [Mass/Vol] 0.54 mg/dL Low 0.55-1.02 [facility] Comment on above: Result Comment: The validity of the calculated GFR GFRAA in patients over70 years has not been determined. Clinical correlation isessential. Performed By: #### L 501.2300, L500.2500 ####[facility] [address] [place], [address] ECRCL 122.57 ml/min Normal [facility] Comment on above: Performed By: #### L 501.2300, L500.2500 ####[facility] [address] [place], [address] EST GFR - AA 151 mL/min Normal >60 [facility] Comment on above: Result Comment: Afri can Japanese GFR Calc Performed By: #### L 501.2300, L500.2500 ####[facility] [address] [place], [address] GAP 5 Normal 5-15 [facility] Comment on above: Performed By: #### L 501.2300, L500.2500 ####[facility] [address] [place], [address] GFR/1.73 sq M.predicted among non-blacks MDRD (S/P/Bld) [Vol rate/Area] 125 mL/min/{1.73_m2} Normal >60 [facility] Comment on above: Result Comment: Non- GFR Calc Performed By: #### L 501.2300, L500.2500 ####[facility] [address] [place], [address] Glucose [Mass/Vol] 237 mg/dL High 74-106 [facility] Comment on above: Result Comment: Gluc ose result greater than or equal to 200 mg/dLsuggests DIABETES MELLITUS per A.D.A. criteria. Performed By: #### L 501.2300, L500.2500 ####[facility] [address] [place], [address] Potassium [Moles/Vol] 3.7 mmol/L Normal 3.5-5.1 [facility] Comment on above: Performed By: #### L 501.2300, L500.2500 ####[facility] [address] [place], [address] Sodium [Moles/Vol] 139 mmol/L Normal 136-145 [facility] Comment on above: Performed By: #### L 501.2300, L500.2500 ####[facility] [address] [place], [address] Urea nitrogen [Mass/Vol] 21 mg/dL High 7-18 [facility] Comment on above: Performed By: #### L 501.2300, L500.2500 ####[facility] [address] [place], [address] BUN/CRE 42.1 RATIO High 10-20 [facility] Comment on above: Performed By: #### L 500.2500, L501.2300, L501.5200, L100.0100 ####[facility] [address] [place], [address] CA,Total 7.8 mg/dL Low 8.5-10.1 [facility] Comment on above: Performed By: #### L 500.2500, L501.2300, L501.5200, L100.0100 ####[facility] [address] [place], [address] Chloride [Moles/Vol] 113 mmol/L High 98-107 [facility] Comment on above: Performed By: #### L 500.2500, L501.2300, L501.5200, L100.0100 ####[facility] [address] [place], [address] CO2 [Moles/Vol] 19.0 mmol/L Low 21.0-32.0 [facility] Comment on above: Performed By: #### L 500.2500, L501.2300, L501.5200, L100.0100 ####[facility] [address] [place], [address] Creatinine [Mass/Vol] 0.50 mg/dL Low 0.55-1.02 [facility] Comment on above: Result Comment: The validity of the calculated GFR GFRAA in patients over70 years has not been determined. Clinical correlation isessential. Performed By: #### L 500.2500, L501.2300, L501.5200, L100.0100 ####[facility] [address] [place], [address] ECRCL 126.70 ml/min Normal [facility] Comment on above: Performed By: #### L 500.2500, L501.2300, L501.5200, L100.0100 ####[facility] [address] [place], [address] EST GFR - AA 166 mL/min Normal >60 [facility] Comment on above: Result Comment: Afri can Japanese GFR Calc Performed By: #### L 500.2500, L501.2300, L501.5200, L100.0100 ####[facility] [address] [place], [address] GAP 7 Normal 5-15 [facility] Comment on above: Performed By: #### L 500.2500, L501.2300, L501.5200, L100.0100 ####[facility] [address] [place], [address] GFR/1.73 sq M.predicted among non-blacks MDRD (S/P/Bld) [Vol rate/Area] 137 mL/min/{1.73_m2} Normal >60 [facility] Comment on above: Result Comment: Non- GFR Calc Performed By: #### L 500.2500, L501.2300, L501.5200, L100.0100 ####[facility] [address] [place], [address] Glucose [Mass/Vol] 244 mg/dL High 74-106 [facility] Comment on above: Result Comment: Gluc ose result greater than or equal to 200 mg/dLsuggests DIABETES MELLITUS per A.D.A. criteria. Performed By: #### L 500.2500, L501.2300, L501.5200, L100.0100 ####[facility] [address] [place], [address] Potassium [Moles/Vol] 3.0 mmol/L Low 3.5-5.1 [facility] Comment on above: Performed By: #### L 500.2500, L501.2300, L501.5200, L100.0100 ####[facility] [address] [place], [address] Sodium [Moles/Vol] 138 mmol/L Normal 136-145 [facility] Comment on above: Performed By: #### L 500.2500, L501.2300, L501.5200, L100.0100 ####[facility] [address] [place], [address] Urea nitrogen [Mass/Vol] 21 mg/dL High 7-18 [facility] Comment on above: Performed By: #### L 500.2500, L501.2300, L501.5200, L100.0100 ####[facility] [address] [place], [address] Bedside Glucoseon 04-25-2024 FINGERSTICK GLU 197 mg/dL High 74-106 [facility] Comment on above: Result Comment: DELLA GEMENT OF PATIENT CARE PER NURSING PROTOCOL Performed By: #### L 501.080 ####[facility] [address] [place], [address] FINGERSTICK GLU 227 mg/dL High 74-106 [facility] Comment on above: Result Comment: DELLA GEMENT OF PATIENT CARE PER NURSING PROTOCOL Performed By: #### L 501.080 ####[facility] [address] [place], [address] FINGERSTICK GLU 194 mg/dL High 74-106 [facility] Comment on above: Result Comment: DELLA GEMENT OF PATIENT CARE PER NURSING PROTOCOL Performed By: #### L 501.080 ####[facility] [address] [place], [address] FINGERSTICK GLU 195 mg/dL High 74-106 [facility] Comment on above: Result Comment: DELLA GEMENT OF PATIENT CARE PER NURSING PROTOCOL Performed By: #### L 501.080 ####[facility] [address] [place], [address] Blood Gases by CPSon 025 Base excess Calc (Bld) [Moles/Vol] -9 mmol/L Low -2 to +2 [facility] Comment on above: Performed By: #### L 9000.0800 ####[facility] [address] [place], [address] Blood Gas Type ART [facility] Comment on above: Performed By: #### L 9000.0800 ####[facility] [address] [place], [address] CO2 [Moles/Vol] 17 mmol/L [facility] Comment on above: Performed By: #### L 9000.0800 ####[facility] [address] [place], [address] FI02 21.0 [facility] Comment on above: Performed By: #### L 9000.0800 ####[facility] [address] [place], [address] HCO3 (Bld) [Moles/Vol] 15.9 mmol/L Low 22-26 [facility] Comment on above: Performed By: #### L 9000.0800 ####[facility] [address] [place], [address] Mode Not entered [facility] Comment on above: Performed By: #### L 9000.0800 ####[facility] [address] [place], [address] O2 Delivery Dev Not entered [facility] Comment on above: Performed By: #### L 9000.0800 ####[facility] [address] [place], [address] pCO2 27.5 mmHg Low 35-45 [facility] Comment on above: Performed By: #### L 9000.0800 ####[facility] [address] [place], [address] pH (Bld) 7.37 [pH] Normal 7.35-7.45 [facility] Comment on above: Performed By: #### L 9000.0800 ####[facility] [address] [place], [address] PO2 78 mmHG Normal 75-100 [facility] Comment on above: Performed By: #### L 9000.0800 ####[facility] [address] [place], [address] SITE L Brach Normal [facility] Comment on above: Performed By: #### L 9000.0800 ####[facility] [address] [place], [address] SO2 95 Normal 95-99 [facility] Comment on above: Performed By: #### L 9000.0800 ####[facility] [address] [place], [address] CBC W/Diff, Automatedon 04-15 SMEAR COMMENT SCANNED Normal [facility] Comment on above: Performed By: #### L 500.2500, L501.2300, L501.5200, L100.0100 ####[facility] [address] [place], [address] Chest 1 View (Portable)on Chest 1 View (Portable) Normal [facility] Consultation - Intensiviston 04-25-2024 Consultation - Planishing Hammer Operator Normal [facility] Magnesiumon 04-25-2024 Magnesium [Mass/Vol] 2.1 mg/dL Normal 1.6-2.6 [facility] Comment on above: Performed By: #### L 500.2500, L501.2300, L501.5200, L100.0100 ####[facility] [address] [place], [address] Phosphoruson 04-25-2024 Phosphate [Mass/Vol] 2.5 mg/dL Normal 2.5-4.9 [facility] Comment on above: Performed By: #### L 501.2300, L500.2500 ####[facility] [address] [place], [address] Phosphate [Mass/Vol] 1.2 mg/dL Low 2.5-4.9 [facility] Comment on above: Performed By: #### L 500.2500, L501.2300, L501.5200, L100.0100 ####[facility] [address] [place], [address] Vancomycin, Trough Levelon 0 04-25-2024 VANCO, TROUGH 16.2 ug/mL High 5.0-15.0 [facility] Comment on above: Order Comment: 0730 Result Comment: VANC OMYCIN STANDARED DRUG THERAPY TROUGH LEVEL: 5.0 - 15.0 mg/LVANCOMYCIN HIGH INTENSITY THERAPY TROUGH LEVEL: 15.0 - 20.0 mg/LHigh Intensity therapy recommended for serious lifethreatening infections include:- Psjeskvnpx-Tvxxbtylfkup-Npftndops (Ventilator/Healtcare Associated)-SepsisPLEASE CONTACT PHARMACY SERVICES (#6622) FOR INTERPRETATIONOF RESULTS. Performed By: #### L 501.8820 ####[facility] [address] [place], [address] Albumin, Serumon 04-24-2024 Albumin [Mass/Vol] 1.9 g/dL Low 3.2-5.0 [facility] Comment on above: Performed By: #### L 501.1800, L501.2300, L500.2500 ####[facility] [address] [place], [address] Basic Metabolic Profile (BMP )on 04-24-2024 BUN/CRE 41.2 RATIO High 10-20 [facility] Comment on above: Performed By: #### L 501.1800, L501.2300, L500.2500 ####[facility] [address] [place], [address] CA,Total 8.0 mg/dL Low 8.5-10.1 [facility] Comment on above: Performed By: #### L 501.1800, L501.2300, L500.2500 ####[facility] [address] [place], [address] Chloride [Moles/Vol] 109 mmol/L High 98-107 [facility] Comment on above: Performed By: #### L 501.1800, L501.2300, L500.2500 ####[facility] [address] [place], [address] CO2 [Moles/Vol] 20.0 mmol/L Low 21.0-32.0 [facility] Comment on above: Performed By: #### L 501.1800, L501.2300, L500.2500 ####[facility] [address] [place], [address] Creatinine [Mass/Vol] 0.58 mg/dL Normal 0.55-1.02 [facility] Comment on above: Result Comment: The validity of the calculated GFR GFRAA in patients over70 years has not been determined. Clinical correlation isessential. Performed By: #### L 501.1800, L501.2300, L500.2500 ####[facility] [address] [place], [address] ECRCL 109.23 ml/min Normal [facility] Comment on above: Performed By: #### L 501.1800, L501.2300, L500.2500 ####[facility] [address] [place], [address] EST GFR - AA 139 mL/min Normal >60 [facility] Comment on above: Result Comment: Afri can Japanese GFR Calc Performed By: #### L 501.1800, L501.2300, L500.2500 ####[facility] [address] [place], [address] GAP 6 Normal 5-15 [facility] Comment on above: Performed By: #### L 501.1800, L501.2300, L500.2500 ####[facility] [address] [place], [address] GFR/1.73 sq M.predicted among non-blacks MDRD (S/P/Bld) [Vol rate/Area] 115 mL/min/{1.73_m2} Normal >60 [facility] Comment on above: Result Comment: Non- GFR Calc Performed By: #### L 501.1800, L501.2300, L500.2500 ####[facility] [address] [place], [address] Glucose [Mass/Vol] 289 mg/dL High 74-106 [facility] Comment on above: Result Comment: Gluc ose result greater than or equal to 200 mg/dLsuggests DIABETES MELLITUS per A.D.A. criteria. Performed By: #### L 501.1800, L501.2300, L500.2500 ####[facility] [address] [place], [address] Potassium [Moles/Vol] 3.7 mmol/L Normal 3.5-5.1 [facility] Comment on above: Performed By: #### L 501.1800, L501.2300, L500.2500 ####[facility] [address] [place], [address] Sodium [Moles/Vol] 135 mmol/L Low 136-145 [facility] Comment on above: Performed By: #### L 501.1800, L501.2300, L500.2500 ####[facility] [address] [place], [address] Urea nitrogen [Mass/Vol] 24 mg/dL High 7-18 [facility] Comment on above: Performed By: #### L 501.1800, L501.2300, L500.2500 ####[facility] [address] [place], [address] BUN/CRE 38.0 RATIO High 10-20 [facility] Comment on above: Order Comment: Call MD with results STAT Performed By: #### L 500.2500, L501.5200, L500.4050 ####[facility] [address] [place], [address] CA,Total 8.5 mg/dL Normal 8.5-10.1 [facility] Comment on above: Order Comment: Call MD with results STAT Performed By: #### L 500.2500, L501.5200, L500.4050 ####[facility] [address] [place], [address] Chloride [Moles/Vol] 111 mmol/L High 98-107 [facility] Comment on above: Order Comment: Call MD with results STAT Performed By: #### L 500.2500, L501.5200, L500.4050 ####[facility] [address] [place], [address] CO2 [Moles/Vol] 22.0 mmol/L Normal 21.0-32.0 [facility] Comment on above: Order Comment: Call MD with results STAT Performed By: #### L 500.2500, L501.5200, L500.4050 ####[facility] [address] [place], [address] Creatinine [Mass/Vol] 0.68 mg/dL Normal 0.55-1.02 [facility] Comment on above: Order Comment: Call MD with results STAT Result Comment: The validity of the calculated GFR GFRAA in patients over70 years has not been determined. Clinical correlation isessential. Performed By: #### L 500.2500, L501.5200, L500.4050 ####[facility] [address] [place], [address] ECRCL 86.09 ml/min Normal [facility] Comment on above: Order Comment: Call MD with results STAT Performed By: #### L 500.2500, L501.5200, L500.4050 ####[facility] [address] [place], [address] EST GFR - AA 115 mL/min Normal >60 [facility] Comment on above: Order Comment: Call MD with results STAT Result Comment: Afri can Japanese GFR Calc Performed By: #### L 500.2500, L501.5200, L500.4050 ####[facility] [address] [place], [address] GAP 5 Normal 5-15 [facility] Comment on above: Order Comment: Call MD with results STAT Performed By: #### L 500.2500, L501.5200, L500.4050 ####[facility] [address] [place], [address] GFR/1.73 sq M.predicted among non-blacks MDRD (S/P/Bld) [Vol rate/Area] 95 mL/min/{1.73_m2} Normal >60 [facility] Comment on above: Order Comment: Call MD with results STAT Result Comment: Non- GFR Calc Performed By: #### L 500.2500, L501.5200, L500.4050 ####[facility] [address] [place], [address] Glucose [Mass/Vol] 263 mg/dL High 74-106 [facility] Comment on above: Order Comment: Call MD with results STAT Result Comment: Gluc ose result greater than or equal to 200 mg/dLsuggests DIABETES MELLITUS per A.D.A. criteria. Performed By: #### L 500.2500, L501.5200, L500.4050 ####[facility] [address] [place], [address] Potassium [Moles/Vol] 3.6 mmol/L Normal 3.5-5.1 [facility] Comment on above: Order Comment: Call MD with results STAT Performed By: #### L 500.2500, L501.5200, L500.4050 ####[facility] [address] [place], [address] Sodium [Moles/Vol] 138 mmol/L Normal 136-145 [facility] Comment on above: Order Comment: Call MD with results STAT Performed By: #### L 500.2500, L501.5200, L500.4050 ####[facility] [address] [place], [address] Urea nitrogen [Mass/Vol] 26 mg/dL High 7-18 [facility] Comment on above: Order Comment: Call MD with results STAT Performed By: #### L 500.2500, L501.5200, L500.4050 ####[facility] [address] [place], [address] BUN/CRE 31.5 RATIO High 10-20 [facility] Comment on above: Order Comment: Call MD with results STAT Performed By: #### L 500.2500 ####[facility] [address] [place], [address] CA,Total 8.1 mg/dL Low 8.5-10.1 [facility] Comment on above: Order Comment: Call MD with results STAT Performed By: #### L 500.2500 ####[facility] [address] [place], [address] Chloride [Moles/Vol] 109 mmol/L High 98-107 [facility] Comment on above: Order Comment: Call MD with results STAT Performed By: #### L 500.2500 ####[facility] [address] [place], [address] CO2 [Moles/Vol] 21.0 mmol/L Normal 21.0-32.0 [facility] Comment on above: Order Comment: Call MD with results STAT Performed By: #### L 500.2500 ####[facility] [address] [place], [address] Creatinine [Mass/Vol] 0.89 mg/dL Normal 0.55-1.02 [facility] Comment on above: Order Comment: Call MD with results STAT Result Comment: The validity of the calculated GFR GFRAA in patients over70 years has not been determined. Clinical correlation isessential. Performed By: #### L 500.2500 ####[facility] [address] [place], [address] ECRCL 65.78 ml/min Normal [facility] Comment on above: Order Comment: Call MD with results STAT Performed By: #### L 500.2500 ####[facility] [address] [place], [address] EST GFR - AA 85 mL/min Normal >60 [facility] Comment on above: Order Comment: Call MD with results STAT Result Comment: Afri can Japanese GFR Calc Performed By: #### L 500.2500 ####[facility] [address] [place], [address] GAP 7 Normal 5-15 [facility] Comment on above: Order Comment: Call MD with results STAT Performed By: #### L 500.2500 ####[facility] [address] [place], [address] GFR/1.73 sq M.predicted among non-blacks MDRD (S/P/Bld) [Vol rate/Area] 70 mL/min/{1.73_m2} Normal >60 [facility] Comment on above: Order Comment: Call MD with results STAT Result Comment: Non- GFR Calc Performed By: #### L 500.2500 ####[facility] [address] [place], [address] Glucose [Mass/Vol] 289 mg/dL High 74-106 [facility] Comment on above: Order Comment: Call MD with results STAT Result Comment: Gluc ose result greater than or equal to 200 mg/dLsuggests DIABETES MELLITUS per A.D.A. criteria. Performed By: #### L 500.2500 ####[facility] [facility] [address] [place], [address] Potassium [Moles/Vol] 2.9 mmol/L Low 3.5-5.1 [facility] Comment on above: Order Comment: Call MD with results STAT Performed By: #### L 500.2500 ####[facility] [address] [place], [address] Sodium [Moles/Vol] 137 mmol/L Normal 136-145 [facility] Comment on above: Order Comment: Call MD with results STAT Performed By: #### L 500.2500 ####[facility] [address] [place], [address] Urea nitrogen [Mass/Vol] 28 mg/dL High 7-18 [facility] Comment on above: Order Comment: Call MD with results STAT Performed By: #### L 500.2500 ####[facility] [address] [place], [address] Bedside Glucoseon 04-24-2024 FINGERSTICK GLU 286 mg/dL High 74-106 [facility] Comment on above: Result Comment: DELLA GEMENT OF PATIENT CARE PER NURSING PROTOCOL Performed By: #### L 501.080 ####[facility] [address] [place], [address] FINGERSTICK GLU 321 mg/dL High 74-106 [facility] Comment on above: Result Comment: DELLA GEMENT OF PATIENT CARE PER NURSING PROTOCOL Performed By: #### L 501.080 ####[facility] [address] [place], [address] FINGERSTICK GLU 214 mg/dL High 74-106 [facility] Comment on above: Result Comment: DELLA GEMENT OF PATIENT CARE PER NURSING PROTOCOL Performed By: #### L 501.080 ####[facility] [address] [place], [address] FINGERSTICK GLU 214 mg/dL High 74-[address] [place] [address] Comment on above: Result Comment: DELLA GEMENT OF PATIENT CARE PER NURSING PROTOCOL Performed By: #### L 501.080 ####[facility] [address] [place], [address] FINGERSTICK GLU 205 mg/dL High [facility]106 [facility] Comment on above: Result Comment: DELLA GEMENT OF PATIENT CARE PER NURSING PROTOCOL Performed By: #### L 501.080 ####[facility] [address] [place], [address] FINGERSTICK GLU 199 mg/dL High -[address] [place] [address] Comment on above: Result Comment: DELLA GEMENT OF PATIENT CARE PER NURSING PROTOCOL Performed By: #### L 501.080 ####[facility] [address] [place], [address] FINGERSTICK GLU 237 mg/dL High -[address] [place] [address] Comment on above: Result Comment: DELLA GEMENT OF PATIENT CARE PER NURSING PROTOCOL Performed By: #### L 501.080 ####[facility] [address] [place], [address] FINGERSTICK GLU 227 mg/dL High [address] [place] [address] Comment on above: Result Comment: DELLA GEMENT OF PATIENT CARE PER NURSING PROTOCOL Performed By: #### L 501.080 ####[facility] [address] [place], [address] FINGERSTICK GLU 246 mg/dL High 74-[address] [place] [address] Comment on above: Result Comment: DELLA GEMENT OF PATIENT CARE PER NURSING PROTOCOL Performed By: #### L 501.080 ####[facility] [address] [place], [address] FINGERSTICK GLU 285 mg/dL High [facility]106 [facility] Comment on above: Result Comment: DELLA GEMENT OF PATIENT CARE PER NURSING PROTOCOL Performed By: #### L 501.080 ####[facility] [address] [place], [address] FINGERSTICK GLU 264 mg/dL High 74-106 [facility] Comment on above: Result Comment: DELLA GEMENT OF PATIENT CARE PER NURSING PROTOCOL Performed By: #### L 501.080 ####[facility] [address] [place], [address] FINGERSTICK GLU 247 mg/dL High 74-106 [facility] Comment on above: Result Comment: DELLA GEMENT OF PATIENT CARE PER NURSING PROTOCOL Performed By: #### L 501.080 ####[facility] [address] [place], [address] CT Chest, Abd, Pel w/Contras ton 04-24-2024 CT Chest, Abd, Pel w/Contrast Normal [facility] Chest 1 View (Portable)on Chest 1 View (Portable) Normal [facility] Chest 1 View (Portable) Normal [facility] Comprehensive Metabolic Prof ilon 04-24-2024 Albumin [Mass/Vol] 1.9 g/dL Low 3.2-5.0 [facility] Comment on above: Order Comment: Call MD with results STAT Performed By: #### L 500.2500, L501.5200, L500.4050 ####[facility] [address] [place], [address] Albumin/Globulin [Mass ratio] 0.6 {ratio} Low 0.9-2.4 [facility] Comment on above: Order Comment: Call MD with results STAT Performed By: #### L 500.2500, L501.5200, L500.4050 ####[facility] [address] [place], [address] ALK P 108 U/L Normal 45-117 [facility] Comment on above: Order Comment: Call MD with results STAT Performed By: #### L 500.2500, L501.5200, L500.4050 ####[facility] [address] [place], [address] ALT [Catalytic activity/Vol] 36 U/L Normal 13-56 [facility] Comment on above: Order Comment: Call MD with results STAT Performed By: #### L 500.2500, L501.5200, L500.4050 ####[facility] [address] [place], [address] AST [Catalytic activity/Vol] 29 U/L Normal 15-37 [facility] Comment on above: Order Comment: Call MD with results STAT Performed By: #### L 500.2500, L501.5200, L500.4050 ####[facility] [address] [place], [address] Bilirubin [Mass/Vol] 0.50 mg/dL Normal 0.20-1.00 [facility] Comment on above: Order Comment: Call MD with results STAT Result Comment: For patients on eltrombopag therapy, use of Dimension [place] TBIL is not recommended. Performed By: #### L 500.2500, L501.5200, L500.4050 ####[facility] [address] [place], [address] Globulin (S) [Mass/Vol] 3.4 g/dL Normal 2.2-4.2 [facility] Comment on above: Order Comment: Call MD with results STAT Performed By: #### L 500.2500, L501.5200, L500.4050 ####[facility] [address] [place], [address] T PROT 5.3 g/dL Low 6.4-8.2 [facility] Comment on above: Order Comment: Call MD with results STAT Performed By: #### L 500.2500, L501.5200, L500.4050 ####[facility] [address] [place], [address] Echo Completeon 04-24-2024 Echo Complete Normal [facility] Hemoglobin A1con 04-24-2024 HbA1c (Bld) [Mass fraction] 11.7 % High 3.8-5.6 [facility] Comment on above: Result Comment: Norm al < 5.7 % Prediabetic 5.7 - 6.4 % Diabetic >or= 6.5 % Please note range changes. Performed By: #### L 100.0100, L501.2300, L501.9985 ####[facility] [address] [place], [address] M8200.1075on 04-24-2024 M8200.1075 Normal [facility] Comment on above: Performed By: #### M 8200.1075 ####[facility] [address] [place], [address] Magnesiumon 04-24-2024 Magnesium [Mass/Vol] 1.9 mg/dL Normal 1.6-2.6 [facility] Comment on above: Order Comment: Call MD with results STAT Performed By: #### L 500.2500, L501.5200, L500.4050 ####[facility] [address] [place], [address] Phosphoruson 04-24-2024 Phosphate [Mass/Vol] 2.1 mg/dL Low 2.5-4.9 [facility] Comment on above: Performed By: #### L 501.1800, L501.2300, L500.2500 ####[facility] [address] [place], [address] Phosphate [Mass/Vol] 1.0 mg/dL Invalid Interpretation Code 2.5-4.9 [facility] Comment on above: Result Comment: Reecet ical Result(s) Called at: 05:13:58 04/24/2024 by: BOZENA to Paulina Santamaria. Results read back by same. Performed By: #### L 100.0100, L501.2300, L501.9985 ####[facility] [address] [place], [address] Procedure Reporton Procedure Report Normal [facility] Renal Profileon 04-24-2024 ALB Normal 3.2-5.0 [facility] Comment on above: Result Comment: DUPL ICATE ORDER. TESTS ADDED TO BMP. Performed By: #### L 500.3600 ####[facility] [address] [place], [address] BUN Normal 7-18 [facility] Comment on above: Result Comment: DUPL ICATE ORDER. TESTS ADDED TO BMP. Performed By: #### L 500.3600 ####[facility] [address] [place], [address] BUN/CRE Normal 10-20 [facility] Comment on above: Result Comment: DUPL ICATE ORDER. TESTS ADDED TO BMP. Performed By: #### L 500.3600 ####[facility] [address] [place], [address] CA,Total Normal 8.5-10.1 [facility] Comment on above: Result Comment: DUPL ICATE ORDER. TESTS ADDED TO BMP. Performed By: #### L 500.3600 ####[facility] [address] [place], [address] CL Normal 98-107 [facility] Comment on above: Result Comment: DUPL ICATE ORDER. TESTS ADDED TO BMP. Performed By: #### L 500.3600 ####[facility] [address] [place], [address] CO2 Normal 21.0-32.0 [facility] Comment on above: Result Comment: DUPL ICATE ORDER. TESTS ADDED TO BMP. Performed By: #### L 500.3600 ####[facility] [address] [place], [address] CREAT,SERUM Normal 0.55-1.02 [facility] Comment on above: Result Comment: DUPL ICATE ORDER. TESTS ADDED TO BMP. Performed By: #### L 500.3600 ####[facility] [address] [place], [address] EST GFR Normal >60 [facility] Comment on above: Result Comment: DUPL ICATE ORDER. TESTS ADDED TO BMP. Performed By: #### L 500.3600 ####[facility] [address] [place], [address] EST GFR - AA Normal >60 [facility] Comment on above: Result Comment: DUPL ICATE ORDER. TESTS ADDED TO BMP. Performed By: #### L 500.3600 ####[facility] [address] [place], [address] GLU Normal 74-106 [facility] Comment on above: Result Comment: DUPL ICATE ORDER. TESTS ADDED TO BMP. Performed By: #### L 500.3600 ####[facility] [address] [place], [address] PHOS Normal 2.5-4.9 [facility] Comment on above: Result Comment: DUPL ICATE ORDER. TESTS ADDED TO BMP. Performed By: #### L 500.3600 ####[facility] [address] [place], [address] Potassium Normal 3.5-5.1 [facility] Comment on above: Result Comment: DUPL ICATE ORDER. TESTS ADDED TO BMP. Performed By: #### L 500.3600 ####[facility] [address] [place], [address] Renal Profile Normal 136-145 [facility] Comment on above: Result Comment: DUPL ICATE ORDER. TESTS ADDED TO BMP. Performed By: #### L 500.3600 ####[facility] [address] [place], [address] 12 Lead EKGon 04-23-2024 12 Lead EKG Normal [facility] 04-23-2024 ACETONE SERUM MODERATE Abnormal NEG [facility] Comment on above: Performed By: #### L 501.6900, L500.2500, L100.0100 ####[facility] [address] [place], [address] Basic Metabolic Profile (BMP )on 04-23-2024 BUN/CRE 31.2 RATIO High 10-20 [facility] Comment on above: Order Comment: Call MD with results STAT Performed By: #### L 500.2500 ####[facility] [address] [place], [address] CA,Total 8.3 mg/dL Low 8.5-10.1 [facility] Comment on above: Order Comment: Call MD with results STAT Performed By: #### L 500.2500 ####[facility] [address] [place], [address] Chloride [Moles/Vol] 106 mmol/L Normal 98-107 [facility] Comment on above: Order Comment: Call MD with results STAT Performed By: #### L 500.2500 ####[facility] [address] [place], [address] CO2 [Moles/Vol] 21.0 mmol/L Normal 21.0-32.0 [facility] Comment on above: Order Comment: Call MD with results STAT Performed By: #### L 500.2500 ####[facility] [address] [place], [address] Creatinine [Mass/Vol] 0.93 mg/dL Normal 0.55-1.02 [facility] Comment on above: Order Comment: Call MD with results STAT Result Comment: The validity of the calculated GFR GFRAA in patients over70 years has not been determined. Clinical correlation isessential. Performed By: #### L 500.2500 ####[facility] [address] [place], [address] ECRCL 62.95 ml/min Normal [facility] Comment on above: Order Comment: Call MD with results STAT Performed By: #### L 500.2500 ####[facility] [address] [place], [address] EST GFR - AA 81 mL/min Normal >60 [facility] Comment on above: Order Comment: Call MD with results STAT Result Comment: Afri can Japanese GFR Calc Performed By: #### L 500.2500 ####[facility] [address] [place], [address] GAP 8 Normal 5-15 [facility] Comment on above: Order Comment: Call MD with results STAT Performed By: #### L 500.2500 ####[facility] [address] [place], [address] GFR/1.73 sq M.predicted among non-blacks MDRD (S/P/Bld) [Vol rate/Area] 67 mL/min/{1.73_m2} Normal >60 [facility] Comment on above: Order Comment: Call MD with results STAT Result Comment: Non- GFR Calc Performed By: #### L 500.2500 ####[facility] [address] [place], [address] Glucose [Mass/Vol] 267 mg/dL High 74-106 [facility] Comment on above: Order Comment: Call MD with results STAT Result Comment: Gluc ose result greater than or equal to 200 mg/dLsuggests DIABETES MELLITUS per A.D.A. criteria. Performed By: #### L 500.2500 ####[facility] [address] [place], [address] Potassium [Moles/Vol] 3.3 mmol/L Low 3.5-5.1 [facility] Comment on above: Order Comment: Call MD with results STAT Performed By: #### L 500.2500 ####[facility] [address] [place], [address] Sodium [Moles/Vol] 135 mmol/L Low 136-145 [facility] Comment on above: Order Comment: Call MD with results STAT Performed By: #### L 500.2500 ####[facility] [address] [place], [address] Urea nitrogen [Mass/Vol] 29 mg/dL High 7-18 [facility] Comment on above: Order Comment: Call MD with results STAT Performed By: #### L 500.2500 ####[facility] [address] [place], [address] BUN/CRE 29.3 RATIO High 10-20 [facility] Comment on above: Order Comment: Call MD with results STAT Performed By: #### L 500.2500 ####[facility] [address] [place], [address] CA,Total 8.6 mg/dL Normal 8.5-10.1 [facility] Comment on above: Order Comment: Call MD with results STAT Performed By: #### L 500.2500 ####[facility] [address] [place], [address] Chloride [Moles/Vol] 101 mmol/L Normal 98-107 [facility] Comment on above: Order Comment: Call MD with results STAT Performed By: #### L 500.2500 ####[facility] [address] [place], [address] CO2 [Moles/Vol] 18.0 mmol/L Low 21.0-32.0 [facility] Comment on above: Order Comment: Call MD with results STAT Performed By: #### L 500.2500 ####[facility] [address] [place], [address] Creatinine [Mass/Vol] 1.16 mg/dL High 0.55-1.02 [facility] Comment on above: Order Comment: Call MD with results STAT Result Comment: The validity of the calculated GFR GFRAA in patients over70 years has not been determined. Clinical correlation isessential. Performed By: #### L 500.2500 ####[facility] [address] [place], [address] ECRCL 50.47 ml/min Normal [facility] Comment on above: Order Comment: Call MD with results STAT Performed By: #### L 500.2500 ####[facility] [address] [place], [address] EST GFR - AA 63 mL/min Normal >60 [facility] Comment on above: Order Comment: Call MD with results STAT Result Comment: Afri can Japanese GFR Calc Performed By: #### L 500.2500 ####[facility] [address] [place], [address] GAP 13 Normal 5-15 [facility] Comment on above: Order Comment: Call MD with results STAT Performed By: #### L 500.2500 ####[facility] [address] [place], [address] GFR/1.73 sq M.predicted among non-blacks MDRD (S/P/Bld) [Vol rate/Area] 52 mL/min/{1.73_m2} Low >60 [facility] Comment on above: Order Comment: Call MD with results STAT Result Comment: Non- GFR Calc Performed By: #### L 500.2500 ####[facility] [address] [place], [address] Glucose [Mass/Vol] 388 mg/dL High 74-106 [facility] Comment on above: Order Comment: Call MD with results STAT Result Comment: Gluc ose result greater than or equal to 200 mg/dLsuggests DIABETES MELLITUS per A.D.A. criteria. Performed By: #### L 500.2500 ####[facility] [address] [place], [address] Potassium [Moles/Vol] 2.8 mmol/L Low 3.5-5.1 [facility] Comment on above: Order Comment: Call MD with results STAT Performed By: #### L 500.2500 ####[facility] [address] [place], [address] Sodium [Moles/Vol] 132 mmol/L Low 136-145 [facility] Comment on above: Order Comment: Call MD with results STAT Performed By: #### L 500.2500 ####[facility] [address] [place], [address] Urea nitrogen [Mass/Vol] 34 mg/dL High 7-18 [facility] Comment on above: Order Comment: Call MD with results STAT Performed By: #### L 500.2500 ####[facility] [address] [place], [address] BUN/CRE 30.4 RATIO High 10-20 [facility] Comment on above: Performed By: #### L 501.6900, L500.2500, L100.0100 ####[facility] [address] [place], [address] CA,Total 9.3 mg/dL Normal 8.5-10.1 [facility] Comment on above: Performed By: #### L 501.6900, L500.2500, L100.0100 ####[facility] [address] [place], [address] Chloride [Moles/Vol] 93 mmol/L Low 98-107 [facility] Comment on above: Performed By: #### L 501.6900, L500.2500, L100.0100 ####[facility] [address] [place], [address] CO2 [Moles/Vol] 16.0 mmol/L Low 21.0-32.0 [facility] Comment on above: Performed By: #### L 501.6900, L500.2500, L100.0100 ####[facility] [address] [place], [address] Creatinine [Mass/Vol] 1.25 mg/dL High 0.55-1.02 [facility] Comment on above: Result Comment: The validity of the calculated GFR GFRAA in patients over70 years has not been determined. Clinical correlation isessential. Performed By: #### L 501.6900, L500.2500, L100.0100 ####[facility] [address] [place], [address] ECRCL 46.84 ml/min Normal [facility] Comment on above: Performed By: #### L 501.6900, L500.2500, L100.0100 ####[facility] [address] [place], [address] EST GFR - AA 58 mL/min Low >60 [facility] Comment on above: Result Comment: Afri can Japanese GFR Calc Performed By: #### L 501.6900, L500.2500, L100.0100 ####[facility] [address] [place], [address] GAP 21 High 5-15 [facility] Comment on above: Performed By: #### L 501.6900, L500.2500, L100.0100 ####[facility] [address] [place], [address] GFR/1.73 sq M.predicted among non-blacks MDRD (S/P/Bld) [Vol rate/Area] 48 mL/min/{1.73_m2} Low >60 [facility] Comment on above: Result Comment: Non- GFR Calc Performed By: #### L 501.6900, L500.2500, L100.0100 ####[facility] [address] [place], [address] Glucose [Mass/Vol] 483 mg/dL Invalid Interpretation Code 74-106 [facility] Comment on above: Result Comment: Crit ical Result(s) Called at: 15:35:30 04/23/2024 by: Ary to Jessika Paul. Results read back by same.Glucose result greater than or equal to 200 mg/dLsuggests DIABETES MELLITUS per A.D.A. criteria. Performed By: #### L 501.6900, L500.2500, L100.0100 ####[facility] [address] [place], [address] Potassium [Moles/Vol] 3.4 mmol/L Low 3.5-5.1 [facility] Comment on above: Performed By: #### L 501.6900, L500.2500, L100.0100 ####[facility] [address] [place], [address] Sodium [Moles/Vol] 130 mmol/L Low 136-145 [facility] Comment on above: Performed By: #### L 501.6900, L500.2500, L100.0100 ####[facility] [address] [place], [address] Urea nitrogen [Mass/Vol] 38 mg/dL High 7-18 [facility] Comment on above: Performed By: #### L 501.6900, L500.2500, L100.0100 ####[facility] [address] [place], [address] BUN/CRE 28.0 RATIO High 10-20 [facility] Comment on above: Performed By: #### L 500.2500 ####[facility] [address] [place], [address] CA,Total 9.9 mg/dL Normal 8.5-10.1 [facility] Comment on above: Performed By: #### L 500.2500 ####[facility] [address] [place], [address] Chloride [Moles/Vol] 91 mmol/L Low 98-107 [facility] Comment on above: Performed By: #### L 500.2500 ####[facility] [address] [place], [address] CO2 [Moles/Vol] 14.0 mmol/L Low 21.0-32.0 [facility] Comment on above: Performed By: #### L 500.2500 ####[facility] [address] [place], [address] Creatinine [Mass/Vol] 1.43 mg/dL High 0.55-1.02 [facility] Comment on above: Result Comment: The validity of the calculated GFR GFRAA in patients over70 years has not been determined. Clinical correlation isessential. Performed By: #### L 500.2500 ####[facility] [address] [place], [address] ECRCL 40.94 ml/min Normal [facility] Comment on above: Performed By: #### L 500.2500 ####[facility] [address] [place], [address] EST GFR - AA 49 mL/min Low >60 [facility] Comment on above: Result Comment: Afri can Japanese GFR Calc Performed By: #### L 500.2500 ####[facility] [address] [place], [address] GAP 21 High 5-15 [facility] Comment on above: Performed By: #### L 500.2500 ####[facility] [address] [place], [address] GFR/1.73 sq M.predicted among non-blacks MDRD (S/P/Bld) [Vol rate/Area] 41 mL/min/{1.73_m2} Low >60 [facility] Comment on above: Result Comment: Non- GFR Calc Performed By: #### L 500.2500 ####[facility] [address] [place], [address] Glucose [Mass/Vol] 475 mg/dL Invalid Interpretation Code 74-106 [facility] Comment on above: Result Comment: Crit ical Result(s) Called at: 13:30:41 04/23/2024 by:Daiana Rogers. Results read back by same.Glucose result greater than or equal to 200 mg/dLsuggests DIABETES MELLITUS per A.D.A. criteria. Performed By: #### L 500.2500 ####[facility] [address] [place], [address] Potassium [Moles/Vol] 3.1 mmol/L Low 3.5-5.1 [facility] Comment on above: Performed By: #### L 500.2500 ####[facility] [address] [place], [address] Sodium [Moles/Vol] 127 mmol/L Low 136-145 [facility] Comment on above: Performed By: #### L 500.2500 ####[facility] [address] [place], [address] Urea nitrogen [Mass/Vol] 40 mg/dL High 7-18 [facility] Comment on above: Performed By: #### L 500.2500 ####[facility] [address] [place], [address] Bedside Glucoseon 04-23-2024 FINGERSTICK GLU 233 mg/dL High [address] [place] [address] Comment on above: Result Comment: DELLA GEMENT OF PATIENT CARE PER NURSING PROTOCOL Performed By: #### L 501.080 ####[facility] [address] [place], [address] FINGERSTICK GLU 231 mg/dL High [address] [place] [address] Comment on above: Result Comment: DELLA GEMENT OF PATIENT CARE PER NURSING PROTOCOL Performed By: #### L 501.080 ####[facility] [address] [place], [address] FINGERSTICK GLU 272 mg/dL High 74-106 [facility] Comment on above: Result Comment: DELLA GEMENT OF PATIENT CARE PER NURSING PROTOCOL Performed By: #### L 501.080 ####[facility] [address] [place], [address] FINGERSTICK GLU 274 mg/dL High 74-106 [facility] Comment on above: Result Comment: DELLA GEMENT OF PATIENT CARE PER NURSING PROTOCOL Performed By: #### L 501.080 ####[facility] [address] [place], [address] FINGERSTICK GLU 282 mg/dL High 74-106 [facility] Comment on above: Result Comment: DELLA GEMENT OF PATIENT CARE PER NURSING PROTOCOL Performed By: #### L 501.080 ####[facility] [address] [place], [address] FINGERSTICK GLU 338 mg/dL High 74-106 [facility] Comment on above: Result Comment: DELLA GEMENT OF PATIENT CARE PER NURSING PROTOCOL Performed By: #### L 501.080 ####[facility] [address] [place], [address] Blood Gases by [facility] 025 Base excess Calc (Bld) [Moles/Vol] -12 mmol/L Low -2 to +2 [facility] Comment on above: Performed By: #### L 9000.0800 ####[facility] [address] [place], [address] Blood Gas Type ART Normal [facility] Comment on above: Performed By: #### L 9000.0800 ####[facility] [address] [place], [address] CO2 [Moles/Vol] 14 mmol/L Normal [facility] Comment on above: Performed By: #### L 9000.0800 ####[facility] [address] [place], [address] HCO3 (Bld) [Moles/Vol] 13.5 mmol/L Low 22-26 [facility] Comment on above: Performed By: #### L 9000.0800 ####[facility] [address] [place], [address] Mode Not entered Normal [facility] Comment on above: Performed By: #### L 9000.0800 ####[facility] [address] [place], [address] O2 Delivery Dev Not entered Normal [facility] Comment on above: Performed By: #### L 9000.0800 ####[facility] [address] [place], [address] pCO2 24.3 mmHg Low 35-45 [facility] Comment on above: Performed By: #### L 9000.0800 ####[facility] [address] [place], [address] pH (Bld) 7.35 [pH] Normal 7.35-7.45 [facility] Comment on above: Performed By: #### L 9000.0800 ####[facility] [address] [place], [address] PO2 74 mmHG Low 75-100 [facility] Comment on above: Performed By: #### L 9000.0800 ####[facility] [address] [place], [address] SITE L Brach Normal [facility] Comment on above: Performed By: #### L 9000.0800 ####[facility] [address] [place], [address] SO2 94 Low 95-99 [facility] Comment on above: Performed By: #### L 9000.0800 ####[facility] [address] [place], [address] Chest 1 View (Portable)on Chest 1 View (Portable) Normal [facility] Chest 1 View (Portable) Normal [facility] Emergency Department Summary on 04-23-2024 Emergency Department Summary Normal [facility] H AND P Exam - Hospitaliston 04-23-2024 H&P Exam - Hospitalist Normal [facility] Lactic Acidon 04-23-2024 Lactate [Moles/Vol] 1.7 mmol/L Normal 0.4-1.9 [facility] Comment on above: Performed By: #### L 503.6005 ####[facility] [address] [place], [address] Lactate [Moles/Vol] 2.8 mmol/L Invalid Interpretation Code 0.4-1.9 [facility] Comment on above: Order Comment: Y Result Comment: .Cri tical Result(s) Called at: 15:36:45 04/23/2024 by:Bere Mireles to Jessika Paul. Results read back by same. Performed By: #### L 503.6005, M200.1000, L501.2300 ####[facility] [address] [place], [address] Legionella Antigen Urineon 0 04-23-2024 LEGU Normal [facility] Comment on above: Performed By: #### M 300.4600, M300.4500 ####[facility] [address] [place], [address] Liver Profileon 04-23-2024 Albumin [Mass/Vol] 2.6 g/dL Low 3.2-5.0 [facility] Comment on above: Performed By: #### L 500.3400, L501.5200 ####[facility] [address] [place], [address] ALK P 153 U/L High 45-117 [facility] Comment on above: Performed By: #### L 500.3400, L501.5200 ####[facility] [address] [place], [address] ALT [Catalytic activity/Vol] 52 U/L Normal 13-56 [facility] Comment on above: Performed By: #### L 500.3400, L501.5200 ####[facility] [address] [place], [address] AST [Catalytic activity/Vol] 29 U/L Normal 15-37 [facility] Comment on above: Performed By: #### L 500.3400, L501.5200 ####[facility] [address] [place], [address] Bilirubin [Mass/Vol] 0.80 mg/dL Normal 0.20-1.00 [facility] Comment on above: Result Comment: For patients on eltrombopag therapy, use of Dimension [place] TBIL is not recommended. Performed By: #### L 500.3400, L501.5200 ####[facility] [address] [place], [address] Bilirubin.direct [Mass/Vol] 0.43 mg/dL High 0.00-0.30 [facility] Comment on above: Performed By: #### L 500.3400, L501.5200 ####[facility] [address] [place], [address] Globulin (S) [Mass/Vol] 3.4 g/dL Normal 2.2-4.2 [facility] Comment on above: Performed By: #### L 500.3400, L501.5200 ####[facility] [address] [place], [address] T PROT 6.0 g/dL Low 6.4-8.2 [facility] Comment on above: Performed By: #### L 500.3400, L501.5200 ####[facility] [address] [place], [address] Magnesiumon 04-23-2024 Magnesium [Mass/Vol] 2.1 mg/dL Normal 1.6-2.6 [facility] Comment on above: Performed By: #### L 500.3400, L501.5200 ####[facility] [address] [place], [address] Phosphoruson 04-23-2024 Phosphate [Mass/Vol] 2.1 mg/dL Low 2.5-4.9 [facility] Comment on above: Performed By: #### L 503.6005, M200.1000, L501.2300 ####[facility] [address] [place], [address] Procalcitoninon 04-23-2024 Procalcitonin 28.73 ng/mL High 0.00-0.09 [facility] Comment on above: Result Comment: A [...] are obtained. Performed By: #### L 509.7000 ####[facility] [address] [place], [address] RESPIRATORY PANEL MOLECULARo n 04-23-2024 RP PANEL Normal [facility] Comment on above: Performed By: #### M 100.638 ####[facility] [address] [place], [place], [address] Strep pneumoniae Antig(UR,CS F)on 04-23-2024 STPAG Normal [facility] Comment on above: Performed By: #### M 300.4600, M300.4500 ####[facility] [address] [place], [address] Urinalysis, Completeon 04-23 EPI,SQUAMOUS 0-5 SEEN Normal 5-10 [facility] Comment on above: Order Comment: OMAR TER SPECIMEN Performed By: #### L 400.0001 ####[facility] [address] [place], [address] WBC 0-5 SEEN Normal 0-5 [facility] Comment on above: Order Comment: OMAR TER SPECIMEN Performed By: #### L 400.0001 ####[facility] [address] [place], [address] BACTERIA 0 SEEN Normal None Seen [facility] Comment on above: Order Comment: OMAR TER SPECIMEN Performed By: #### L 400.0001 ####[facility] [address] [place], [address] Mucus Ql (Urine sed) 0 SEEN Normal [facility] Comment on above: Order Comment: OMAR TER SPECIMEN Performed By: #### L 400.0001 ####[facility] [address] [place], [address] RBC 0 SEEN Normal 0-5 [facility] Comment on above: Order Comment: OMAR TER SPECIMEN Performed By: #### L 400.0001 ####[facility] [address] [place], [address] Urine Drug Screen (VISTA)on 04-23-2024 AMPHETAMINES Negative Normal <1000 ng/mL [facility] Comment on above: Performed By: #### L 505.5000 ####[facility] [address] [place], [address] BARBITIURATES Negative Normal < 200 ng/mL [facility] Comment on above: Performed By: #### L 505.5000 ####[facility] [address] [place], [address] BENZODIAZIPINE Negative Normal < 200 ng/mL [facility] Comment on above: Performed By: #### L 505.5000 ####[facility] [address] [place], [id number] COCAINE Negative Normal < 300 ng/mL [facility] Comment on above: Performed By: #### L 505.5000 ####[facility] [address] [place], [address] ECSTACY Negative Normal < 500 ng/mL [facility] Comment on above: Performed By: #### L 505.5000 ####[facility] [address] [place], [address] METHADONE Negative Normal < 300 ng/mL [facility] Comment on above: Performed By: #### L 505.5000 ####[facility] [address] [place], [address] OPIATES Negative Normal < 300 ng/mL [facility] Comment on above: Performed By: #### L 505.5000 ####[facility] [address] [place], [address] PCP Negative Normal < 25 ng/mL [facility] Comment on above: Performed By: #### L 505.5000 ####[facility] [address] [place], [address] THC Negative Normal < 50 ng/mL [facility] Comment on above: Performed By: #### L 505.5000 ####[facility] [address] [place], [address] VISTA UDS PH 5 Normal [facility] Comment on above: Performed By: #### L 505.5000 ####[facility] [address] [place], [place], [id number] Cult,Urineon 04-11-2024 Cult,Urine Specimen Description .CLEAN CATCH URINE Special Requests Site: Urine Culture MIXED GRAM POSITIVE ORGANISMS 1,000 TO 10,000 CFU/ML Report Status FINAL 04/11/2024 Normal [facility] Comment on above: Performed By: #### P HVBG, LACTIC, PER, LIP, MG, CBC, CP #### [facility] [place], [place] [phone] Life Skills Consultant: Yaritza Infante MD #### BH #### [address] [phone] Life Skills Consultant: Rodríguez Suarez MD Beta Hydroxybutyrateon 04-10 Beta Hydroxybutyrate 0.07 mmol/L Normal 0.02-0.27 [facility] Comment on above: Performed By: #### P HVBG, LACTIC, PER, LIP, MG, CBC, CP #### [facility] [place] [address] Life Skills Consultant: Yaritza Infante MD #### BH #### [address] [phone] Life Skills Consultant: Rodríguez Suarez MD Beta-Hydroxybutyrateon 04-10 Beta hydroxybutyrate [Mass/Vol] 0.07 mmol/L 0.02 - 0.27 mmol/L [facility] CBC with Auto Differentialon 04-10-2024 Basophils (Bld) [#/Vol] 0.03 10*3/uL [facility] Basophils/100 WBC (Bld) 1 % 0.0 - 2.0 % [facility] Eosinophils (Bld) [#/Vol] 0.15 10*3/uL [facility] Eosinophils/100 WBC (Bld) 4 % 0 - 6 % [facility] Erythrocyte distribution width (RBC) [Ratio] 13.1 % 11.5 - 15.0 % [facility] Hematocrit (Bld) [Volume fraction] 41.0 % 34.0 - 48.0 % [facility] Hemoglobin (Bld) [Mass/Vol] 13.6 g/dL 11.5 - 15.5 g/dL [facility] Immature granulocytes (Bld) [#/Vol] 0.07 10*3/uL [facility] Immature granulocytes/100 WBC (Bld) 2 % 0.0 - 5.0 % [facility] Interpretation and review of laboratory results Abnormal [facility] Lymphocytes/100 WBC (Bld) 31 % 20.0 - 42.0 % [facility] Lymphocytes/100 WBC (Bld) 1.21 % Low [facility] MCH (RBC) [Entitic mass] 28.1 pg 26.0 - 35.0 pg [facility] MCHC (RBC) [Mass/Vol] 33.2 g/dL 32.0 - 34.5 g/dL [facility] MCV (RBC) [Entitic vol] 84.7 fL 80.0 - 99.9 fL [facility] Monocytes/100 WBC (Bld) 12 % 2.0 - 12.0 % [facility] Monocytes/100 WBC (Bld) 0.46 % [facility] Neutrophils/100 WBC (Bld) 51 % 43.0 - 80.0 % [facility] Platelet mean volume (Bld) [Entitic vol] 10.5 fL 7.0 - 12.0 fL [facility] Platelets (Bld) [#/Vol] 182 10*3/uL [facility] RBC (Bld) [#/Vol] 4.84 10*6/uL 3.50 - 5.5 0 m/uL [facility] Segmented neutrophils/100 WBC (Bld) 2.00 % [facility] WBC other (Bld) [#/Vol] 3.9 Low [facility] CBC with Diffon 04-10-2024 Abs. Basophil 0.03 k/uL Normal 0.00-0.20 [facility] Comment on above: Performed By: #### P HVBG, LACTIC, PER, LIP, MG, CBC, CP #### [facility] [address] [place] [address] Life Skills Consultant: Yaritza Infante MD #### #### [place] [address] Life Skills Consultant: Rodríguez Suarez MD Abs.Imm.Granulocyte 0.07 k/uL Normal 0.00-0.58 [facility] Comment on above: Performed By: #### P HVBG, LACTIC, PER, LIP, MG, CBC, CP #### [facility] [address] [place] [address] Life Skills Consultant: Yaritza Infante MD #### #### [place] [address] Life Skills Consultant: Rodríguez Suarez MD Abs.Neutrophil (Seg) 2.00 k/uL Normal 1.80-7.30 [facility] Comment on above: Performed By: #### P HVBG, LACTIC, PER, LIP, MG, CBC, CP #### [facility] [address] [place] [address] Life Skills Consultant: Yaritza Infante MD #### #### [place] [address] Life Skills Consultant: Rodríguez Suarez MD Basophils/100 WBC (Bld) 1 % Normal 0.0-2.0 [facility] Comment on above: Performed By: #### P HVBG, LACTIC, PER, LIP, MG, CBC, CP #### [facility] [address] [place] [address] Life Skills Consultant: Yaritza Infante MD #### #### [place] [address] Life Skills Consultant: Rodríguez Suarez MD Eosinophils (Bld) [#/Vol] 0.15 10*3/uL Normal 0.05-0.50 [facility] Comment on above: Performed By: #### P HVBG, LACTIC, PER, LIP, MG, CBC, CP #### [facility] [place] [address] Life Skills Consultant: Yaritza Infante MD #### #### [place] [address] Life Skills Consultant: Rodríguez Suarez MD Eosinophils/100 WBC (Bld) 4 % Normal 0-6 [facility] Comment on above: Performed By: #### P HVBG, LACTIC, PER, LIP, MG, CBC, CP #### [facility] [place] [address] Life Skills Consultant: Yaritza Infante MD #### BH #### [place] [address] Life Skills Consultant: Rodríguez Suarez MD Erythrocyte distribution width (RBC) [Ratio] 13.1 % Normal 11.5-15.0 [facility] Comment on above: Performed By: #### P HVBG, LACTIC, PER, LIP, MG, CBC, CP #### [facility] [place] [address] Life Skills Consultant: Yaritza Infante MD #### BH #### [place] [address] Life Skills Consultant: Rodríguez Suarez MD Hematocrit (Bld) [Volume fraction] 41.0 % Normal 34.0-48.0 [facility] Comment on above: Performed By: #### P HVBG, LACTIC, PER, LIP, MG, CBC, CP #### [facility] [address] [place] [address] Life Skills Consultant: Yaritza Infante MD #### #### [place] [address] Life Skills Consultant: Rodríguez Suarez MD Hemoglobin (Bld) [Mass/Vol] 13.6 g/dL Normal 11.5-15.5 [facility] Comment on above: Performed By: #### P HVBG, LACTIC, PER, LIP, MG, CBC, CP #### [facility] [address] [place] [address] Life Skills Consultant: Yaritza Infante MD #### #### [place] [address] Life Skills Consultant: Rodríguez Suarez MD Immature granulocytes/100 WBC (Bld) 2 % Normal 0.0-5.0 [facility] Comment on above: Performed By: #### P HVBG, LACTIC, PER, LIP, MG, CBC, CP #### [facility] [address] [place] [address] Life Skills Consultant: Yaritza Infante MD #### #### [place] [address] Life Skills Consultant: Rodríguez Suarez MD Lymphocytes (Bld) [#/Vol] 1.21 10*3/uL Low 1.50-4.00 [facility] Comment on above: Performed By: #### P HVBG, LACTIC, PER, LIP, MG, CBC, CP #### [facility] [address] [place], [place] [phone] Life Skills Consultant: Yaritza Infante MD #### BH #### [place] [address] Life Skills Consultant: Rodríguez Suarez MD Lymphocytes/100 WBC (Bld) 31 % Normal 20.0-42.0 [facility] Comment on above: Performed By: #### P HVBG, LACTIC, PER, LIP, MG, CBC, CP #### [facility] [place] [address] Life Skills Consultant: Yaritza Infante MD #### BH #### [place] [address] Life Skills Consultant: Rodríguez Suarez MD MCH (RBC) [Entitic mass] 28.1 pg Normal 26.0-35.0 [facility] Comment on above: Performed By: #### P HVBG, LACTIC, PER, LIP, MG, CBC, CP #### [facility] [place] [address] Life Skills Consultant: Yaritza Infante MD #### BH #### [place] [address] Life Skills Consultant: Rodríguez Suarez MD MCHC (RBC) [Mass/Vol] 33.2 g/dL Normal 32.0-34.5 [facility] Comment on above: Performed By: #### P HVBG, LACTIC, PER, LIP, MG, CBC, CP #### [facility] [place] [phone] Life Skills Consultant: Yaritza Infante MD #### BH #### [place] [address] Life Skills Consultant: Rodríguez Suarez MD MCV (RBC) [Entitic vol] 84.7 fL Normal 80.0-99.9 [facility] Comment on above: Performed By: #### P HVBG, LACTIC, PER, LIP, MG, CBC, CP #### [facility] [address] [place] [address] Life Skills Consultant: Yaritza Infante MD #### #### [place] [address] Life Skills Consultant: Rodríguez Suarez MD Monocytes (Bld) [#/Vol] 0.46 10*3/uL Normal 0.10-0.95 [facility] Comment on above: Performed By: #### P HVBG, LACTIC, PER, LIP, MG, CBC, CP #### [facility] [address] [place] [address] Life Skills Consultant: Yaritza Infante MD #### BH #### [place] [address] Life Skills Consultant: Rodríguez Suarez MD Monocytes/100 WBC (Bld) 12 % Normal 2.0-12.0 [facility] Comment on above: Performed By: #### P HVBG, LACTIC, PER, LIP, MG, CBC, CP #### [facility] [address] [place] [address] Life Skills Consultant: Yaritza Infante MD #### BH #### [place] [address] Life Skills Consultant: Rodríguez Suarez MD Neutrophil (Seg) 51 % Normal 43.0-80.0 [facility] Comment on above: Performed By: #### P HVBG, LACTIC, PER, LIP, MG, CBC, CP #### [facility] [place] [address] Life Skills Consultant: Yaritza Infante MD #### BH #### [place] [address] Life Skills Consultant: Rodríguez Suarez MD Platelet mean volume (Bld) [Entitic vol] 10.5 fL Normal 7.0-12.0 [facility] Comment on above: Performed By: #### P HVBG, LACTIC, PER, LIP, MG, CBC, CP #### [facility] [address] [place] [address] Life Skills Consultant: Yaritza Infante MD #### BH #### [place] [address] Life Skills Consultant: Rodríguez Suarez MD Platelets (Bld) [#/Vol] 182 10*3/uL Normal 130-450 [facility] Comment on above: Performed By: #### P HVBG, LACTIC, PER, LIP, MG, CBC, CP #### [facility] [address] [place] [address] Life Skills Consultant: Yaritza Infante MD #### BH #### [address] [place] [address] Life Skills Consultant: Rodríguez Suarez MD RBC (Bld) [#/Vol] 4.84 10*6/uL Normal 3.50-5.50 [facility] Comment on above: Performed By: #### P HVBG, LACTIC, PER, LIP, MG, CBC, CP #### [facility] [address] [place] [address] Life Skills Consultant: Yaritza Infante MD #### BH #### [address] [phone] Life Skills Consultant: Rodríguez Suarez MD WBC (Bld) [#/Vol] 3.9 10*3/uL Low 4.5-11.5 [facility] Comment on above: Performed By: #### P HVBG, LACTIC, PER, LIP, MG, CBC, CP #### [facility] [address] [place], [place] [phone] Life Skills Consultant: Yaritza Infante MD #### #### [facility] [address] [place], [place] [phone] Life Skills Consultant: Rodríguez Suarez MD [facility] 04-10-2024 Albumin [Mass/Vol] 4.0 g/dL 3.5 - 5.2 g/dL [facility] ALP [Catalytic activity/Vol] 194 U/L High 35 - 104 U/L [facility] ALT [Catalytic activity/Vol] 140 U/L High 0 - 32 U/L [facility] Anion gap [Moles/Vol] 14 mmol/L 7 - 16 mmol/L [facility] AST [Catalytic activity/Vol] 76 U/L High 0 - 31 U/L [facility] Bilirubin [Mass/Vol] 0.3 mg/dL 0.0 - 1 .2 mg/dL [facility] Calcium [Mass/Vol] 10.2 mg/dL 8.6 - 10. 2 mg/dL [facility] Chloride [Moles/Vol] 100 mmol/L 98 - 10 7 mmol/L [facility] CO2 [Moles/Vol] 26 mmol/L 22 - 29 mmol/L [facility] Creatinine [Mass/Vol] 0.6 mg/dL 0.50 - 1.00 mg/dL [facility] Est, Glom Filt Rate - PINF [facility] Comment on above: These results are not [...] 408 mg/dL High 74 - 99 mg/dL [facility] Potassium [Moles/Vol] 4.1 mmol/L 3.5 - 5.0 mmol/L [facility] Protein [Mass/Vol] 6.6 g/dL 6.4 - 8.3 g/dL [facility] Sodium [Moles/Vol] 140 mmol/L 132 - 146 mmol/L [facility] Urea nitrogen [Mass/Vol] 21 mg/dL High 6 - 20 mg/dL [facility] Comp Metabolic Profon 2023 Albumin [Mass/Vol] 4.0 g/dL Normal 3.5-5.2 [facility] Comment on above: Performed By: #### P HVBG, LACTIC, PER, LIP, MG, CBC, CP #### [facility] [place] [address] Life Skills Consultant: Yaritza Infante MD #### BH #### [place] [address] Life Skills Consultant: Rodríguez Suarez MD Alkaline Phos 194 U/L High 35-104 [facility] Comment on above: Performed By: #### P HVBG, LACTIC, PER, LIP, MG, CBC, CP #### [facility] [place] [address] Life Skills Consultant: Yaritza Infante MD #### BH #### [place] [address] Life Skills Consultant: Rodríguez Suarez MD ALT [Catalytic activity/Vol] 140 U/L High 0-32 [facility] Comment on above: Performed By: #### P HVBG, LACTIC, PER, LIP, MG, CBC, CP #### [facility] [place] [address] Life Skills Consultant: Yaritza Infante MD #### BH #### [place] [address] Life Skills Consultant: Rodríguez Suarez MD Anion gap [Moles/Vol] 14 mmol/L Normal 7-16 [facility] Comment on above: Performed By: #### P HVBG, LACTIC, PER, LIP, MG, CBC, CP #### [facility] [address] [place] [address] Life Skills Consultant: Yaritza Infante MD #### BH #### [place] [address] Life Skills Consultant: Rodríguez Suarez MD AST [Catalytic activity/Vol] 76 U/L High 0-31 [facility] Comment on above: Performed By: #### P HVBG, LACTIC, PER, LIP, MG, CBC, CP #### [facility] [address] [place] [address] Life Skills Consultant: Yaritza Infante MD #### BH #### [place] [address] Life Skills Consultant: Rodríguez Suarez MD Bilirubin [Mass/Vol] 0.3 mg/dL Normal 0.0-1.2 [facility] Comment on above: Performed By: #### P HVBG, LACTIC, PER, LIP, MG, CBC, CP #### [facility] [address] [place], [place] [phone] Life Skills Consultant: Yaritza Infante MD #### BH #### [address] [place] [address] Life Skills Consultant: Rodríguez Suarez MD Calcium [Mass/Vol] 10.2 mg/dL Normal 8.6-10.2 [facility] Comment on above: Performed By: #### P HVBG, LACTIC, PER, LIP, MG, CBC, CP #### [facility] [place] [address] Life Skills Consultant: Yaritza Infante MD #### BH #### [address] [address] Life Skills Consultant: Rodríguez Suarez MD Chloride [Moles/Vol] 100 mmol/L Normal 98-107 [facility] Comment on above: Performed By: #### P HVBG, LACTIC, PER, LIP, MG, CBC, CP #### [facility] [place] [address] Life Skills Consultant: Yaritza Infante MD #### BH #### [address] [address] Life Skills Consultant: Rodríguez Suarez MD CO2 [Moles/Vol] 26 mmol/L Normal 22-29 [facility] Comment on above: Performed By: #### P HVBG, LACTIC, PER, LIP, MG, CBC, CP #### [facility] [place] [address] Life Skills Consultant: Yaritza Infante MD #### BH #### [address] [address] Life Skills Consultant: Rodríguez Suarez MD Creatinine [Mass/Vol] 0.6 mg/dL Normal 0.50-1.00 [facility] Comment on above: Performed By: #### P HVBG, LACTIC, PER, LIP, MG, CBC, CP #### [facility] [address] [place] [address] Life Skills Consultant: Yaritza Infante MD #### BH #### [address] [address] Life Skills Consultant: Rodríguez Suarez MD GFR/1.73 sq M.predicted among non-blacks MDRD (S/P/Bld) [Vol rate/Area] mL/min/{1.73_m2} Normal >60 [facility] Comment on above: Result Comment: These [...] LACTIC, PER, LIP, MG, CBC, CP #### [facility] [place] [address] Life Skills Consultant: Yaritza Infante MD #### BH #### [address] [address] Life Skills Consultant: Rodríguez Suarez MD Glucose [Mass/Vol] 408 mg/dL High 74-99 [facility] Comment on above: Performed By: #### P HVBG, LACTIC, PER, LIP, MG, CBC, CP #### [facility] [place] [address] Life Skills Consultant: Yaritza Infante MD #### BH #### [address] [address] Life Skills Consultant: Rodríguez Suarez MD Potassium [Moles/Vol] 4.1 mmol/L Normal 3.5-5.0 [facility] Comment on above: Performed By: #### P HVBG, LACTIC, PER, LIP, MG, CBC, CP #### [facility] [address] [place] [address] Life Skills Consultant: Yaritza Infante MD #### BH #### [address] [address] Life Skills Consultant: Rodríguez Suarez MD Protein [Mass/Vol] 6.6 g/dL Normal 6.4-8.3 [facility] Comment on above: Performed By: #### P HVBG, LACTIC, PER, LIP, MG, CBC, CP #### [facility] [address] [place] [address] Life Skills Consultant: Yaritza Infante MD #### BH #### [address] [address] Life Skills Consultant: Rodríguez Suarez MD Sodium [Moles/Vol] 140 mmol/L Normal 132-146 [facility] Comment on above: Performed By: #### P HVBG, LACTIC, PER, LIP, MG, CBC, CP #### [facility] [address] [place] [address] Life Skills Consultant: Yaritza Infante MD #### BH #### [address] [address] Life Skills Consultant: Rodríguez Suarez MD Urea nitrogen [Mass/Vol] 21 mg/dL High 6-20 [facility] Comment on above: Performed By: #### P HVBG, LACTIC, PER, LIP, MG, CBC, CP #### [facility] [address] [place] [address] Life Skills Consultant: Yaritza Infante MD #### #### [address] [address] Life Skills Consultant: Rodríguez Suarez MD Glucose,Whole BloodOrdered B y: Marilee Hopkins on 04-10-2024 Glucose [Mass/Vol] 222 mg/dL High 74-[address] [facility] cours [facility] Glucose,Whole Bloodon 2023 Glucose [Mass/Vol] 413 mg/dL High 74-99 [facility] Lactic Acidon 04-10-2024 Lactate (BldV) [Moles/Vol] 1.8 mmol/L 0.5 - 2.2 mmol/L [facility] Lactate [Moles/Vol] 1.8 mmol/L Normal 0.5-2.2 [facility] Comment on above: Performed By: #### P HVBG, LACTIC, PER, LIP, MG, CBC, CP #### [facility] [place] [address] Life Skills Consultant: Yaritza Infante MD #### #### [address] [address] Life Skills Consultant: Rodríguez Suarez MD Lipaseon 04-10-2024 Lipase [Catalytic activity/Vol] 93 U/L High 13 - 60 U/L [facility] Lipase [Catalytic activity/Vol] 93 U/L High 13-60 [facility] Comment on above: Performed By: #### P HVBG, LACTIC, PER, LIP, MG, CBC, CP #### [facility] [place] [address] Life Skills Consultant: Yaritza Infante MD #### BH #### [address] [phone] Life Skills Consultant: Rodríguez Suarez MD No Panel Informationon 04-10 Interpretation and review of laboratory results Abnormal [facility] PH, VENOUSon 04-10-2024 pH, Suman 7.360 7.350 - 7.450 [facility] POCT Glucoseon 04-10-2024 Glucose [Mass/Vol] 222 mg/dL High 74 - 99 mg/dL [facility] Interpretation and review of laboratory results Abnormal [facility] Glucose [Mass/Vol] 413 mg/dL High 74 - 99 mg/dL [facility] Interpretation and review of laboratory results Abnormal [facility] POCT GlucoseOrdered By: Quentin Hopkins on 04-10-2024 Interpretation and review of laboratory results Normal [facility] QC OK? yes [facility] POCT GlucoseOrdered By: Rob Garcia on 04-10-2024 Glucose [Mass/Vol] 413 mg/dL [facility] Interpretation and review of laboratory results Normal [facility] QC OK? ok [facility] Troponinon 04-10-2024 Troponin I.cardiac High sensitivity method [Mass/Vol] 8 ng/L 0 - 9 ng/L [facility] Comment on above: High Sensitivity Troponin values cannot be compared with other Troponin methodologies. Patients with high levels of Biotin oral intake (i.e >5mg/day) may have falsely decreased Troponin levels. Samples collected within 8 hours of biotin intake may require additional information for diagnosis. Troponin, High Sens 8 ng/L Normal 0-9 [facility] Comment on above: Result Comment: High Sensitivity Troponin values cannot be compared with other Troponin methodologies. Patients with high levels of Biotin oral intake (i.e >5mg/day) may have falsely decreased Troponin levels. Samples collected within 8 hours of biotin intake may require additional information for diagnosis. Performed By: #### P HVBG, LACTIC, PER, LIP, MG, CBC, CP #### [facility] [address] [place] [address] Life Skills Consultant: Yaritaz Infanet MD #### BH #### [address] [place] [address] Life Skills Consultant: Rodríguez Suarez MD Urinalysis w/ Microon 2023 Bacteria 2+ Abnormal NONE [facility] Comment on above: Performed By: #### U AMIC ####[address] [place] [address] Lab Director: Rodríguez Suarez MD Epithelial cells LM Ql (Urine sed) 6 TO 9 Normal [facility] Comment on above: Performed By: #### U AMIC ####[address] [place] [address] Lab Director: Rodríguez Suarez MD Urine RBC's 0 TO 2 Normal R02 [facility] Comment on above: Performed By: #### U AMIC ####[place] [address] [address] [facility].[place], [place] [phone] Director: Rodríguez Suarez MD Urine WBC's 0 TO 5 Normal R05 [facility] Comment on above: Performed By: #### U AMIC ####[address] [place] [address] Lab Director: Rodríguez Suarez MD Bilirubin, SemiQt,Ur Negative Normal NEG [facility] Comment on above: Performed By: #### U AMIC ####[place] [address], [place] [phone] Director: Rodríguez Suarez MD Blood, Urine Negative Normal NEG [facility] Comment on above: Performed By: #### U AMIC ####[place] [address], [place] [phone] Director: Rodríguez Suarez MD Clarity (U) SLIGHTLY CLOUDY Abnormal CLEAR [facility] Comment on above: Performed By: #### U AMIC ####[place] [address] [place] [address] Lab Director: Rodríguez Suarez MD Color (U) Yellow Normal YEL [facility] Comment on above: Performed By: #### U AMIC ####[place] [address] [place] [phone] Director: Rodríguez Suarez MD Glucose Ql (U) >=1000 Abnormal NEG [facility] Comment on above: Performed By: #### U AMIC ####[place] [address] [place] [phone] Director: Rodríguez Suarez MD Ketones Ql (U) Negative Normal NEG [facility] Comment on above: Performed By: #### U AMIC ####[place] [address] [place] [address] Lab Director: Rodríguez Suarez MD Leukocyte esterase Test strip Ql (U) Negative Normal NEG [facility] Comment on above: Performed By: #### U AMIC ####[place] [address] [place] [phone] Director: Rodríguez Suarez MD Nitrite,Ur Negative Normal NEG [facility] Comment on above: Performed By: #### U AMIC ####[place] [address] [place] [address] Lab Director: Rodríguez Suarez MD PH,Ur 5.0 Normal 5.0-9.0 [facility] Comment on above: Performed By: #### U AMIC ####[place] [address] [place] [address] Lab Director: Rodríguez Suarez MD Protein Ql (U) Negative Normal NEG [facility] Comment on above: Performed By: #### U AMIC ####[place] [address] [place] [address] Lab Director: Rodríguez Suarez MD Spec. [place],Ur 1.015 Normal 1.005-1.030 [facility] Comment on above: Performed By: #### U AMIC ####[place] [address] Lab Director: Rodríguez Suarez MD Urobilinogen,Ur 0.2 EU/dL Normal 0.0-1.0 [facility] Comment on above: Performed By: #### U AMIC ####[place] [address] Lab Director: Rodríguez Suarez MD Urinalysis with Microscopico n 04-10-2024 Bacteria LM Ql (Urine sed) 2+ Abnormal None [facility] Bilirubin Ql (U) Negative NEGATIVE [facility] Clarity (U) SLIGHTLY CLOUDY Abnormal Clear [facility] Color (U) Yellow Yellow [facility] Epithelial cells LM.HPF (Urine sed) [#/Area] 6 TO 9 /HPF [facility] Glucose Test strip (U) [Mass/Vol] >=1000 Abnormal NEGATIVE mg/dL [facility] Hemoglobin Auto test strip Ql (U) Negative NEGATIVE [facility] Interpretation and review of laboratory results Abnormal [facility] Ketones (U) [Mass/Vol] Negative NEGATIVE mg/dL [facility] Leukocyte esterase Test strip Ql (U) Negative NEGATIVE [facility] Nitrite Ql (U) Negative NEGATIVE [facility] pH (U) 5.0 [pH] 5.0 - 9.0 [facility] Protein (U) [Mass/Vol] Negative NEGATIVE mg/dL [facility] RBC LM.HPF (Urine sed) [#/Area] 0 TO 2 0 TO 2 /HPF [facility] Specific gravity (U) [Rel density] 1.015 1.005 - 1.030 [facility] Urobilinogen Qn (U) 0.2 {Lionel'U}/dL 0. 0 - 1.0 EU/dL [facility] WBC LM.HPF (Urine sed) [#/Area] 0 TO 5 0 TO 5 /HPF [facility] Venous pHon 04-10-2024 pH (Bld) 7.360 [pH] Normal 7.350-7.450 [facility] Comment on above: Performed By: #### P HVBG, LACTIC, PER, LIP, MG, CBC, CP #### [facility] [place] [address] Life Skills Consultant: Yaritza Infante MD #### BH #### [address] [address] Life Skills Consultant: Rodríguez Suarez MD XR CHEST (2 VW)on [...] Mike Byrd MD 04/10/24 Final result Normal [facility] Comment on above: Order Comment: Waldo pina for exam:->hyperglycemia XR Chest 2 Viewson 1. Small infiltrate seen within the retrocardiac region 2. Questionable ground-glass airspace disease within the right and left lungs. [facility] RIS CONSOLIDATED EXAMINATION: TWO XRAY VIEWS OF THE CHEST 04/10/2024 3:14 pm COMPARISON: None. HISTORY: ORDERING SYSTEM PROVIDED HISTORY: hyperglycemia TECHNOLOGIST PROVIDED HISTORY: Reason for exam:->hyperglycemia FINDINGS: The cardiac silhouette is within normals. I cannot exclude ground-glass airspace disease within the right and left lungs. Within the retrocardiac region there is a small infiltrate. There is no right or left pleural effusion. [facility] Mike Frazier MD - 04/10/2024 EXAMINATION: TWO XRAY VIEWS [...] disease within the right and left lungs. [facility] Radiology Study observation (narrative) [facility] XR Chest 2 ViewsOrdered By: Mike Byrd on 04-10-2024 [facility] Work Phone: Acid Fast Bacillus Cultureon 04-09-2024 tAFBC Normal [facility] Comment on above: Performed By: #### M 100.4001, M600.2200, M100.2000, M300.2000, M600.2000, M300.3000, M100.3000 ####[facility] [address] [place], [place], [id number] Acid Fast Bacillus Smear/Flu oron 04-09-2024 tafb Normal [facility] Comment on above: Performed By: #### M 100.4001, M600.2200, M100.2000, M300.2000, M600.2000, M300.3000, M100.3000 ####[facility] [address] [place], [address] Culture, Fungus 8482on 04-09 CUF Normal [facility] Comment on above: Performed By: #### M 100.4001, M600.2200, M100.2000, M300.2000, M600.2000, M300.3000, M100.3000 ####[facility] [address] [place], [address] Fungus Stain 8136on 04-09-20 24 FUNST Normal [facility] Comment on above: Performed By: #### M 100.4001, M600.2200, M100.2000, M300.2000, M600.2000, M300.3000, M100.3000 ####[facility] [address] [place], [address] Amylaseon 03-24-2024 Amylase [Catalytic activity/Vol] 73 U/L 20 - 100 U/L [facility] Amylase [Catalytic activity/Vol] 73 U/L Normal 20-100 [facility] Comment on above: Performed By: #### P HVBG, LACTIC, PER, LIP, MG, CBC, CP #### [facility] [place], [place] [address] Life Skills Consultant: Yaritza Infante MD #### BH #### [address] [phone] Life Skills Consultant: Rodríguez Suarez MD Beta Hydroxybutyrateon 03-24 Beta Hydroxybutyrate 0.08 mmol/L Normal 0.02-0.27 [facility] Comment on above: Performed By: #### P HVBG, LACTIC, PRE, LIP, MG, CBC, CP #### [facility] [address] [place] [address] Life Skills Consultant: Yaritza Infante MD #### BH #### [address] [phone] Life Skills Consultant: Rodríguez Suarez MD [facility] 03-24-2024 Erythrocyte distribution width (RBC) [Ratio] 12.2 % 11.5 - 15.0 % [facility] Hematocrit (Bld) [Volume fraction] 38.2 % 34.0 - 48.0 % [facility] Hemoglobin (Bld) [Mass/Vol] 12.8 g/dL 11.5 - 15.5 g/dL [facility] MCH (RBC) [Entitic mass] 27.6 pg 26.0 - 35.0 pg [facility] MCHC (RBC) [Mass/Vol] 33.5 g/dL 32.0 - 34.5 g/dL [facility] MCV (RBC) [Entitic vol] 82.3 fL 80.0 - 99.9 fL [facility] Platelet mean volume (Bld) [Entitic vol] 11.4 fL 7.0 - 12.0 fL [facility] Platelets (Bld) [#/Vol] 154 10*3/uL [facility] RBC (Bld) [#/Vol] 4.64 10*6/uL 3.50 - 5.5 0 m/uL [facility] WBC other (Bld) [#/Vol] 4.6 [facility] Erythrocyte distribution width (RBC) [Ratio] 12.2 % Normal 11.5-15.0 [facility] Comment on above: Performed By: #### P HVBG, LACTIC, PER, LIP, MG, CBC, CP #### [facility] [place] [address] Life Skills Consultant: Yaritza Infante MD #### #### [address] [address] Life Skills Consultant: Rodríguez Suarez MD Hematocrit (Bld) [Volume fraction] 38.2 % Normal 34.0-48.0 [facility] Comment on above: Performed By: #### P HVBG, LACTIC, PER, LIP, MG, CBC, CP #### [facility] [place] [address] Life Skills Consultant: Yaritza Infante MD #### BH #### [place] [address] Life Skills Consultant: Rodríguez Suarez MD Hemoglobin (Bld) [Mass/Vol] 12.8 g/dL Normal 11.5-15.5 [facility] Comment on above: Performed By: #### P HVBG, LACTIC, PER, LIP, MG, CBC, CP #### [facility] [address] [place] [address] Life Skills Consultant: Yaritza Infante MD #### BH #### [place] [address] Life Skills Consultant: Rodríguez Suarez MD MCH (RBC) [Entitic mass] 27.6 pg Normal 26.0-35.0 [facility] Comment on above: Performed By: #### P HVBG, LACTIC, PER, LIP, MG, CBC, CP #### [facility] [address] [place] [address] Life Skills Consultant: Yaritza Infante MD #### BH #### [place] [address] Life Skills Consultant: Rodríguez Suarez MD MCHC (RBC) [Mass/Vol] 33.5 g/dL Normal 32.0-34.5 [facility] Comment on above: Performed By: #### P HVBG, LACTIC, PER, LIP, MG, CBC, CP #### [facility] [address] [place], [place] [phone] Life Skills Consultant: Yaritza Infante MD #### BH #### [place] [address] Life Skills Consultant: Rodríguez Suarez MD MCV (RBC) [Entitic vol] 82.3 fL Normal 80.0-99.9 [facility] Comment on above: Performed By: #### P HVBG, LACTIC, PER, LIP, MG, CBC, CP #### [facility] [place] [address] Life Skills Consultant: Yaritza Infante MD #### BH #### [address] [address] Life Skills Consultant: Rodríguez Suarez MD Platelet mean volume (Bld) [Entitic vol] 11.4 fL Normal 7.0-12.0 [facility] Comment on above: Performed By: #### P HVBG, LACTIC, PER, LIP, MG, CBC, CP #### [facility] [address] [place] [address] Life Skills Consultant: Yaritza Infante MD #### BH #### [place] [address] Life Skills Consultant: Rodríguez Suarez MD Platelets (Bld) [#/Vol] 154 10*3/uL Normal 130-450 [facility] Comment on above: Performed By: #### P HVBG, LACTIC, PER, LIP, MG, CBC, CP #### [facility] [place] [address] Life Skills Consultant: Yaritza Infante MD #### BH #### [place] [address] Life Skills Consultant: Rodríguez Suarez MD RBC (Bld) [#/Vol] 4.64 10*6/uL Normal 3.50-5.50 [facility] Comment on above: Performed By: #### P HVBG, LACTIC, PER, LIP, MG, CBC, CP #### [facility] [address] [place] [address] Life Skills Consultant: Yaritza Infante MD #### BH #### [address] [phone] Life Skills Consultant: Rodríguez Suarez MD WBC (Bld) [#/Vol] 4.6 10*3/uL Normal 4.5-11.5 [facility] Comment on above: Performed By: #### P HVBG, LACTIC, PER, LIP, MG, CBC, CP #### [facility] [address] [place] [address] Life Skills Consultant: Yaritza Infante MD #### BH #### [place] [address] Life Skills Consultant: Rodríguez Suarez MD Comp Metabolic Profon 2023 Albumin [Mass/Vol] 3.4 g/dL Low 3.5-5.2 [facility] Comment on above: Performed By: #### P HVBG, LACTIC, PER, LIP, MG, CBC, CP #### [facility] [address] [place] [address] Life Skills Consultant: Yaritza Infante MD #### BH #### [address] [address] Life Skills Consultant: Rodríguez Suarez MD Alkaline Phos 137 U/L High 35-104 [facility] Comment on above: Performed By: #### P HVBG, LACTIC, PER, LIP, MG, CBC, CP #### [facility] [address] [place], [place] [phone] Life Skills Consultant: Yaritza Infante MD #### BH #### [address] [address] Life Skills Consultant: Rodríguez Suarez MD ALT [Catalytic activity/Vol] 97 U/L High 0-32 [facility] Comment on above: Performed By: #### P HVBG, LACTIC, PER, LIP, MG, CBC, CP #### [facility] [address] [place] [address] Life Skills Consultant: Yaritza Infante MD #### BH #### [address] [address] Life Skills Consultant: Rodríguez Suarez MD Anion gap [Moles/Vol] 10 mmol/L Normal 7-16 [facility] Comment on above: Performed By: #### P HVBG, LACTIC, PER, LIP, MG, CBC, CP #### [facility] [address] [place] [address] Life Skills Consultant: Yaritza Infante MD #### BH #### [address] [address] Life Skills Consultant: Rodríguez Suarez MD AST [Catalytic activity/Vol] 77 U/L High 0-31 [facility] Comment on above: Performed By: #### P HVBG, LACTIC, PER, LIP, MG, CBC, CP #### [facility] [address] [place] [address] Life Skills Consultant: Yaritza Infante MD #### BH #### [address] [address] Life Skills Consultant: Rodríguez Suarez MD Bilirubin [Mass/Vol] 0.2 mg/dL Normal 0.0-1.2 [facility] Comment on above: Performed By: #### P HVBG, LACTIC, PER, LIP, MG, CBC, CP #### [facility] [address] [place] [address] Life Skills Consultant: Yaritza Infante MD #### BH #### [place] [address] Life Skills Consultant: Rodríguez Suarez MD Calcium [Mass/Vol] 9.2 mg/dL Normal 8.6-10.2 [facility] Comment on above: Performed By: #### P HVBG, LACTIC, PER, LIP, MG, CBC, CP #### [facility] [address] [place] [address] Life Skills Consultant: Yaritza Infante MD #### BH #### [place] [address] Life Skills Consultant: Rodríguez Suarez MD Chloride [Moles/Vol] 103 mmol/L Normal 98-107 [facility] Comment on above: Performed By: #### P HVBG, LACTIC, PER, LIP, MG, CBC, CP #### [facility] [address] [place] [address] Life Skills Consultant: Yaritza Infante MD #### BH #### [address] [address] Life Skills Consultant: Rodríguez Suarez MD CO2 [Moles/Vol] 26 mmol/L Normal 22-29 [facility] Comment on above: Performed By: #### P HVBG, LACTIC, PER, LIP, MG, CBC, CP #### [facility] [address] [place] [address] Life Skills Consultant: Yaritza Infante MD #### BH #### [address] [address] Life Skills Consultant: Rodríguez Suarez MD Creatinine [Mass/Vol] 0.6 mg/dL Normal 0.50-1.00 [facility] Comment on above: Performed By: #### P HVBG, LACTIC, PER, LIP, MG, CBC, CP #### [facility] [place] [address] Life Skills Consultant: Yaritza Infante MD #### BH #### [address] [phone] Life Skills Consultant: Rodríguez Suarez MD GFR/1.73 sq M.predicted among non-blacks MDRD (S/P/Bld) [Vol rate/Area] mL/min/{1.73_m2} Normal >60 [facility] Comment on above: Result Comment: These [...] LACTIC, PER, LIP, MG, CBC, CP #### [facility] [place] [address] Life Skills Consultant: Yaritza Infante MD #### BH #### [address] [address] Life Skills Consultant: Rodríguez Suarez MD Glucose [Mass/Vol] 500 mg/dL High 74-99 [facility] Comment on above: Performed By: #### P HVBG, LACTIC, PER, LIP, MG, CBC, CP #### [facility] [place] [address] Life Skills Consultant: Yaritza Infante MD #### BH #### [address] [address] Life Skills Consultant: Rodríguez Suarez MD Potassium [Moles/Vol] 4.1 mmol/L Normal 3.5-5.0 [facility] Comment on above: Performed By: #### P HVBG, LACTIC, PER, LIP, MG, CBC, CP #### [facility] [address] [place] [address] Life Skills Consultant: Yaritza Infante MD #### BH #### [address] [address] Life Skills Consultant: Rodríguez Suarez MD Protein [Mass/Vol] 5.9 g/dL Low 6.4-8.3 [facility] Comment on above: Performed By: #### P HVBG, LACTIC, PER, LIP, MG, CBC, CP #### [facility] [address] [place] [address] Life Skills Consultant: Yaritza Infante MD #### BH #### [address] [address] Life Skills Consultant: Rodríguez Suarez MD Sodium [Moles/Vol] 139 mmol/L Normal 132-146 [facility] Comment on above: Performed By: #### P HVBG, LACTIC, PER, LIP, MG, CBC, CP #### [facility] [address] [place] [address] Life Skills Consultant: Yaritza Infante MD #### BH #### [address] [address] Life Skills Consultant: Rodríguez Suarez MD Urea nitrogen [Mass/Vol] 18 mg/dL Normal 6-20 [facility] Comment on above: Performed By: #### P HVBG, LACTIC, PER, LIP, MG, CBC, CP #### [facility] [address] [place], [place] [phone] Life Skills Consultant: Yaritza Infante MD #### #### [facility] [address] [place] [address] Life Skills Consultant: Rodríguez Suarez MD Comprehensive Metabolic Pane [facility] 03-24-2024 Albumin [Mass/Vol] 3.4 g/dL Low 3.5 - 5.2 g/dL [facility] ALP [Catalytic activity/Vol] 137 U/L High 35 - 104 U/L [facility] ALT [Catalytic activity/Vol] 97 U/L High 0 - 32 U/L [facility] Anion gap [Moles/Vol] 10 mmol/L 7 - 16 mmol/L [facility] AST [Catalytic activity/Vol] 77 U/L High 0 - 31 U/L [facility] Bilirubin [Mass/Vol] 0.2 mg/dL 0.0 - 1 .2 mg/dL [facility] Calcium [Mass/Vol] 9.2 mg/dL 8.6 - 10. 2 mg/dL [facility] Chloride [Moles/Vol] 103 mmol/L 98 - 10 7 mmol/L [facility] CO2 [Moles/Vol] 26 mmol/L 22 - 29 mmol/L [facility] Creatinine [Mass/Vol] 0.6 mg/dL 0.50 - 1.00 mg/dL [facility] Est, Glom Filt Rate - PINF [facility] Comment on above: These results are not [...] 500 mg/dL High 74 - 99 mg/dL [facility] Potassium [Moles/Vol] 4.1 mmol/L 3.5 - 5.0 mmol/L [facility] Protein [Mass/Vol] 5.9 g/dL Low 6.4 - 8.3 g/dL [facility] Sodium [Moles/Vol] 139 mmol/L 132 - 146 mmol/L [facility] Urea nitrogen [Mass/Vol] 18 mg/dL 6 - 20 mg/dL [facility] Lactic Acidon 03-24-2024 Lactate (BldV) [Moles/Vol] 2.0 mmol/L 0.5 - 2.2 mmol/L [facility] Lactate [Moles/Vol] 2.0 mmol/L Normal 0.5-2.2 [facility] Comment on above: Performed By: #### P HVBG, LACTIC, PER, LIP, MG, CBC, CP #### [facility] [address] [place] [address] Life Skills Consultant: Yaritza Infante MD #### BH #### [address] [address] Life Skills Consultant: Rodríguez Suarez MD Lipaseon 03-24-2024 Lipase [Catalytic activity/Vol] 65 U/L High 13 - 60 U/L [facility] Lipase [Catalytic activity/Vol] 65 U/L High 13-60 [facility] Comment on above: Performed By: #### P HVBG, LACTIC, PER, LIP, MG, CBC, CP #### [facility] [place] [address] Life Skills Consultant: Yaritza Infante MD #### BH #### [address] [address] Life Skills Consultant: Rodríguez Suarez MD Magnesiumon 03-24-2024 Magnesium [Mass/Vol] 1.7 mg/dL 1.6 - 2 .6 mg/dL [facility] Magnesium [Mass/Vol] 1.7 mg/dL Normal 1.6-2.6 [facility] Comment on above: Performed By: #### P HVBG, LACTIC, PER, LIP, MG, CBC, CP #### [facility] [place] [address] Life Skills Consultant: Yaritza Infante MD #### BH #### [place] [phone] Life Skills Consultant: Rodríguez Suarez MD No Panel Informationon 03-24 Interpretation and review of laboratory results Abnormal [facility] PH, VENOUSon 03-24-2024 pH, Suman 7.359 7.350 - 7.450 [facility] POCT GlucoseOrdered By: Scotty or Sharmila on 03-24-2024 Glucose [Mass/Vol] 467 mg/dL [facility] Interpretation and review of laboratory results Normal [facility] QC OK? y [facility] POCT Glucoseon 03-24-2024 Glucose [Mass/Vol] 467 mg/dL High 74 - 99 mg/dL [facility] Interpretation and review of laboratory results Abnormal [facility] Urinalysis w/ Microon 2023 Bacteria 1+ Abnormal NONE [facility] Comment on above: Performed By: #### P HVBG, LACTIC, PER, LIP, MG, CBC, CP #### [facility] [place], [place] [phone] Life Skills Consultant: Yaritza Infante MD #### BH #### [address] [place] [address] Life Skills Consultant: Rodríguez Suarez MD Epithelial cells LM Ql (Urine sed) 3 to 5 Normal [facility] Comment on above: Performed By: #### P HVBG, LACTIC, PER, LIP, MG, CBC, CP #### [facility] [address] [place] [address] Life Skills Consultant: Yaritza Infante MD #### BH #### [address] [place] [address] Life Skills Consultant: Rodríguez Suarez MD Urine RBC's 0 TO [address] Comment on above: Performed By: #### P HVBG, LACTIC, EPR, LIP, MG, CBC, CP #### [facility] [address] [place] [address] Life Skills Consultant: Yaritza Infante MD #### BH #### [address] [place] [address] Life Skills Consultant: Rodríguez Suarez MD Urine WBC's 10 TO [address] Comment on above: Performed By: #### P HVBG, LACTIC, PER, LIP, MG, CBC, CP #### [facility] [address] [place] [address] Life Skills Consultant: Yaritza Infante MD #### BH #### [address] [place] [address] Life Skills Consultant: Rodríguez Suarez MD Bilirubin, SemiQt,Ur Negative Normal NEG [facility] Comment on above: Performed By: #### P HVBG, LACTIC, PER, LIP, MG, CBC, CP #### [facility] [address] [place] [address] Life Skills Consultant: Yaritza Infante MD #### BH #### [place] [address] Life Skills Consultant: Rodríguez Suarez MD Blood, Urine Negative Normal NEG [facility] Comment on above: Performed By: #### P HVBG, LACTIC, PER, LIP, MG, CBC, CP #### [facility] [place] [address] Life Skills Consultant: Yaritza Infante MD #### BH #### [place] [address] Life Skills Consultant: Rodríguez Suarez MD Clarity (U) Clear Normal CLEAR [facility] Comment on above: Performed By: #### P HVBG, LACTIC, PER, LIP, MG, CBC, CP #### [facility] [place] [phone] Life Skills Consultant: Yaritza Infante MD #### BH #### [place] [address] Life Skills Consultant: Rodríguez Suarez MD Color (U) Yellow Normal YEL [facility] Comment on above: Performed By: #### P HVBG, LACTIC, PER, LIP, MG, CBC, CP #### [facility] [place] [address] Life Skills Consultant: Yaritza Infante MD #### BH #### [place] [address] Life Skills Consultant: Rodrgíuez Suarez MD Glucose Ql (U) >=1000 Abnormal NEG [facility] Comment on above: Performed By: #### P HVBG, LACTIC, PER, LIP, MG, CBC, CP #### [facility] [address] [place] [address] Life Skills Consultant: Yaritza Infante MD #### BH #### [address] [address] Life Skills Consultant: Rodríguez Suarez MD Ketones Ql (U) Negative Normal NEG [facility] Comment on above: Performed By: #### P HVBG, LACTIC, PER, LIP, MG, CBC, CP #### [facility] [place] [address] Life Skills Consultant: Yaritza Infante MD #### BH #### [address] [address] Life Skills Consultant: Rodríguez Suarez MD Leukocyte esterase Test strip Ql (U) TRACE Abnormal NEG [facility] Comment on above: Performed By: #### P HVBG, LACTIC, PER, LIP, MG, CBC, CP #### [facility] [address] [place] [address] Life Skills Consultant: Yaritza Infante MD #### BH #### [address] [address] Life Skills Consultant: Rodríguez Suarez MD Nitrite,Ur Negative Normal [facility] Comment on above: Performed By: #### P HVBG, LACTIC, PER, LIP, MG, CBC, CP #### [facility] [address] [place] [address] Life Skills Consultant: Yaritza Infante MD #### BH #### [address] [address] Life Skills Consultant: Rodríguez Suarez MD PH,Ur 6.0 Normal 5.0-9.0 [facility] [facility] Comment on above: Performed By: #### P HVBG, LACTIC, PER, LIP, MG, CBC, CP #### [facility] [address] [place] [address] Life Skills Consultant: Yaritza Infante MD #### #### [place] [address] Life Skills Consultant: Rodríguez Suarez MD Protein Ql (U) Negative Normal NEG [facility] Comment on above: Performed By: #### P HVBG, LACTIC, PER, LIP, MG, CBC, CP #### [facility] [address] [place] [address] Life Skills Consultant: Yaritza Infante MD #### #### [place] [address] Life Skills Consultant: Rodríguez Suarez MD Spec. [place],Ur 1.010 Normal 1.005-1.030 [facility] Comment on above: Performed By: #### P HVBG, LACTIC, PER, LIP, MG, CBC, CP #### [facility] [address] [place] [address] Life Skills Consultant: Yaritza Infante MD #### BH #### [place] [address] Life Skills Consultant: Rodríguez Suarez MD Urobilinogen,Ur 0.2 EU/dL Normal 0.0-1.0 [facility] Comment on above: Performed By: #### P HVBG, LACTIC, PER, LIP, MG, CBC, CP #### [facility] [address] [place] [address] Life Skills Consultant: Yaritza Infante MD #### BH #### [facility] [address] [place], [place] [address] Life Skills Consultant: Rodríguez Suarez MD Urinalysis with Microscopico n 03-24-2024 Bacteria LM Ql (Urine sed) 1+ Abnormal None [facility] Bilirubin Ql (U) Negative NEGATIVE [facility] Clarity (U) Clear Clear [facility] Color (U) Yellow Yellow [facility] Epithelial cells LM.HPF (Urine sed) [#/Area] 3 to 5 /HPF [facility] Glucose Test strip (U) [Mass/Vol] >=1000 Abnormal NEGATIVE mg/dL [facility] Hemoglobin Auto test strip Ql (U) Negative NEGATIVE [facility] Interpretation and review of laboratory results Abnormal [facility] Ketones (U) [Mass/Vol] Negative NEGATIVE mg/dL [facility] Leukocyte esterase Test strip Ql (U) TRACE Abnormal NEGATIVE [facility] Nitrite Ql (U) Negative NEGATIVE [place] [facility] pH (U) 6.0 [pH] 5.0 - 9.0 [facility] Protein (U) [Mass/Vol] Negative NEGATIVE mg/dL [facility] RBC LM.HPF (Urine sed) [#/Area] 0 TO 2 0 TO 2 /HPF [facility] Specific gravity (U) [Rel density] 1.010 1.005 - 1.030 [facility] Urobilinogen Qn (U) 0.2 {Lionel'U}/dL 0. 0 - 1.0 EU/dL [facility] WBC LM.HPF (Urine sed) [#/Area] 10 TO 20 Abnormal 0 TO 5 /HPF [facility] Venous pHon 03-24-2024 pH (Bld) 7.359 [pH] Normal 7.350-7.450 [facility] Comment on above: Performed By: #### P HVBG, LACTIC, PER, LIP, MG, CBC, CP #### [facility] [place] [address] Life Skills Consultant: Yaritza Infante MD #### #### [facility] [address] [facility] [place] [address] Life Skills Consultant: Rodríguez Suarez MD Complement C3on 03-05-2024 COMP C3 107 mg/dL Normal 82-167 [facility] Comment on above: Result Comment: Perf ormed at: - [facility] [address] [id number] Director: Dave Peters PhD, Phone: [phone] Performed By: #### L 3100.5800, L3100.5700 ####[facility] [address] [place], [address] Complement C4on 03-05-2024 COMPLEMENT, C4 22 mg/dL Normal 12-38 [facility] Comment on above: Performed By: #### L 3100.5800, L3100.5700 ####[facility] [address] [place], [address] Culture, Anaerobic Any Sourc rashmi 03-01-2024 CUAN collected in or bone culture right proximal phalyn No growth in 5 days. Normal [facility] Comment on above: Performed By: #### M 100.4001, M600.2200, M100.2000, M300.2000, M600.2000, M300.3000, M100.3000 ####[facility] [address] [place], [address] Basic Metabolic Profile (BMP )on 02-29-2024 BUN/CRE 14.9 RATIO Normal 10-20 [facility] Comment on above: Performed By: #### L 500.2500 ####[facility] [address] [place], [address] CA,Total 8.4 mg/dL Low 8.5-10.1 [facility] Comment on above: Performed By: #### L 500.2500 ####[facility] [address] [place], [address] Chloride [Moles/Vol] 110 mmol/L High 98-107 [facility] Comment on above: Performed By: #### L 500.2500 ####[facility] [address] [place], [address] CO2 [Moles/Vol] 25.0 mmol/L Normal 21.0-32.0 [facility] Comment on above: Performed By: #### L 500.2500 ####[facility] [address] [place], [address] Creatinine [Mass/Vol] 2.69 mg/dL High 0.55-1.02 [facility] Comment on above: Result Comment: The validity of the calculated GFR GFRAA in patients over70 years has not been determined. Clinical correlation isessential. Performed By: #### L 500.2500 ####[facility] [address] [place], [address] ECRCL 24.02 ml/min Normal [facility] Comment on above: Performed By: #### L 500.2500 ####[facility] [address] [place], [address] EST GFR - AA 24 mL/min Low >60 [facility] Comment on above: Result Comment: Afri can Japanese GFR Calc Performed By: #### L 500.2500 ####[facility] [address] [place], [address] GAP 3 Low 5-15 [facility] Comment on above: Performed By: #### L 500.2500 ####[facility] [address] [place], [address] GFR/1.73 sq M.predicted among non-blacks MDRD (S/P/Bld) [Vol rate/Area] 20 mL/min/{1.73_m2} Low >60 [facility] Comment on above: Result Comment: Non- GFR Calc Performed By: #### L 500.2500 ####[facility] [address] [place], [address] Glucose [Mass/Vol] 342 mg/dL High 74-106 [facility] Comment on above: Result Comment: Gluc ose result greater than or equal to 200 mg/dLsuggests DIABETES MELLITUS per A.D.A. criteria. Performed By: #### L 500.2500 ####[facility] [address] [place], [address] Potassium [Moles/Vol] 5.1 mmol/L Normal 3.5-5.1 [facility] Comment on above: Performed By: #### L 500.2500 ####[facility] [address] [place], [address] Sodium [Moles/Vol] 138 mmol/L Normal 136-145 [facility] Comment on above: Performed By: #### L 500.2500 ####[facility] [address] [place], [address] Urea nitrogen [Mass/Vol] 40 mg/dL High 7-18 [facility] Comment on above: Performed By: #### L 500.2500 ####[facility] [address] [place], [address] Bedside Glucoseon 02-29-2024 FINGERSTICK GLU 328 mg/dL High 74-106 [facility] Comment on above: Result Comment: DELLA WLOFENT OF PATIENT CARE PER NURSING PROTOCOL Performed By: #### L 501.080 ####[facility] [address] [place], [address] Discharge Instructionon 02-13 Discharge Instruction Normal [facility] Basic Metabolic Profile (BMP )on 02-28-2024 BUN/CRE 17.4 RATIO Normal 10-20 [facility] Comment on above: Performed By: #### L 500.2500 ####[facility] [address] [place], [address] CA,Total 8.5 mg/dL Normal 8.5-10.1 [facility] Comment on above: Performed By: #### L 500.2500 ####[facility] [address] [place], [address] Chloride [Moles/Vol] 114 mmol/L High 98-107 [facility] Comment on above: Performed By: #### L 500.2500 ####[facility] [address] [place], [address] CO2 [Moles/Vol] 25.0 mmol/L Normal 21.0-32.0 [facility] Comment on above: Performed By: #### L 500.2500 ####[facility] [address] [place], [address] Creatinine [Mass/Vol] 2.70 mg/dL High 0.55-1.02 [facility] Comment on above: Result Comment: The validity of the calculated GFR GFRAA in patients over70 years has not been determined. Clinical correlation isessential. Performed By: #### L 500.2500 ####[facility] [address] [place], [address] ECRCL 23.93 ml/min Normal [facility] Comment on above: Performed By: #### L 500.2500 ####[facility] [address] [place], [address] EST GFR - AA 24 mL/min Low >60 [facility] Comment on above: Result Comment: Afri can Japanese GFR Calc Performed By: #### L 500.2500 ####[facility] [address] [place], [address] GAP 3 Low 5-15 [facility] Comment on above: Performed By: #### L 500.2500 ####[facility] [address] [place], [address] GFR/1.73 sq M.predicted among non-blacks MDRD (S/P/Bld) [Vol rate/Area] 20 mL/min/{1.73_m2} Low >60 [facility] Comment on above: Result Comment: Non- GFR Calc Performed By: #### L 500.2500 ####[facility] [address] [place], [address] Glucose [Mass/Vol] 90 mg/dL Normal 74-106 [facility] Comment on above: Performed By: #### L 500.2500 ####[facility] [address] [place], [address] Potassium [Moles/Vol] 4.6 mmol/L Normal 3.5-5.1 [facility] Comment on above: Performed By: #### L 500.2500 ####[facility] [address] [place], [address] Sodium [Moles/Vol] 142 mmol/L Normal 136-145 [facility] Comment on above: Performed By: #### L 500.2500 ####[facility] [address] [place], [address] Urea nitrogen [Mass/Vol] 47 mg/dL High 7-18 [facility] Comment on above: Performed By: #### L 500.2500 ####[facility] [address] [place], [address] Bedside Glucoseon 02-28-2024 FINGERSTICK GLU 158 mg/dL High 74-106 [facility] Comment on above: Result Comment: DELLA GEMENT OF PATIENT CARE PER NURSING PROTOCOL Performed By: #### L 501.080 ####[facility] [address] [place], [address] FINGERSTICK GLU 182 mg/dL High 74-106 [facility] Comment on above: Result Comment: DELLA GEMENT OF PATIENT CARE PER NURSING PROTOCOL Performed By: #### L 501.080 ####[facility] [address] [place], [address] FINGERSTICK GLU 303 mg/dL High 74-106 [facility] Comment on above: Result Comment: DELLA GEMENT OF PATIENT CARE PER NURSING PROTOCOL Performed By: #### L 501.080 ####[facility] [address] [place], [address] FINGERSTICK GLU 194 mg/dL High 74-106 [facility] Comment on above: Result Comment: DELLA GEMENT OF PATIENT CARE PER NURSING PROTOCOL Performed By: #### L 501.080 ####[facility] [address] [place], [address] CBC W/Diff, Automatedon 11- Absolute Lymph 1.40 X10 3/uL Normal 0.83-4.51 [facility] Comment on above: Performed By: #### L 100.0100 ####[facility] [address] [place], [address] Absolute Neut 2.7 X10 3/uL Normal 2.0-7.7 [facility] Comment on above: Performed By: #### L 100.0100 ####[facility] [address] [place], [address] Basophils/100 WBC (Bld) 0.4 % Normal 0-1 [facility] Comment on above: Performed By: #### L 100.0100 ####[facility] [address] [place], [address] Eosinophils/100 WBC (Bld) 2.8 % Normal 0-5 [facility] Comment on above: Performed By: #### L 100.0100 ####[facility] [address] [place], [address] Erythrocyte distribution width (RBC) [Ratio] 13.2 % Normal 11.6-14.6 [facility] Comment on above: Performed By: #### L 100.0100 ####[facility] [address] [place], [address] Hematocrit (Bld) [Volume fraction] 37.8 % Normal 37-47 [facility] Comment on above: Performed By: #### L 100.0100 ####[facility] [address] [place], [address] Hemoglobin (Bld) [Mass/Vol] 12.3 g/dL Normal 12.0-15.0 [facility] Comment on above: Performed By: #### L 100.0100 ####[facility] [address] [place], [address] IG% 1.400 High 0.0-0.9 [facility] Comment on above: Result Comment: IG% - Immature Granulocytes (promyelocytes, myelocytes andmetamyelocytes) > 1% indicates that a LEFT SHIFT is Present. Performed By: #### L 100.0100 ####[facility] [address] [place], [address] Lymphocytes/100 WBC (Bld) 27.5 % Normal 19-41 [facility] Comment on above: Performed By: #### L 100.0100 ####[facility] [address] [place], [address] MCH (RBC) [Entitic mass] 28.5 pg Normal 27.0-32.0 [facility] Comment on above: Performed By: #### L 100.0100 ####[facility] [address] [place], [address] MCHC (RBC) [Mass/Vol] 32.5 g/dL Normal 32-36 [facility] Comment on above: Performed By: #### L 100.0100 ####[facility] [address] [place], [address] MCV (RBC) [Entitic vol] 87.5 fL Normal 81-99 [facility] Comment on above: Performed By: #### L 100.0100 ####[facility] [address] [place], [address] Monocytes/100 WBC (Bld) 15.7 % High 0-10 [facility] Comment on above: Performed By: #### L 100.0100 ####[facility] [address] [place], [address] Neutrophils/100 WBC (Bld) 52.2 % Normal 47-70 [facility] Comment on above: Performed By: #### L 100.0100 ####[facility] [address] [place], [address] Nucleated RBC (Bld) [#/Vol] 0 10*3/uL Normal 0-5 [facility] Comment on above: Performed By: #### L 100.0100 ####[facility] [address] [place], [address] Platelet mean volume (Bld) [Entitic vol] 10.4 fL Normal 6.2-12.0 [facility] Comment on above: Performed By: #### L 100.0100 ####[facility] [address] [place], [address] Platelets (Bld) [#/Vol] 156 10*3/uL Normal 150-450 [facility] Comment on above: Performed By: #### L 100.0100 ####[facility] [address] [place], [address] RBC (Bld) [#/Vol] 4.32 10*6/uL Normal 4.2-5.4 [facility] Comment on above: Performed By: #### L 100.0100 ####[facility] [address] [place], [address] RDW SD 41.7 fl Normal 35.1-43.9 [facility] Comment on above: Performed By: #### L 100.0100 ####[facility] [address] [place], [address] WBC (Bld) [#/Vol] 5.1 10*3/uL Normal 4.4-11.0 [facility] Comment on above: Performed By: #### L 100.0100 ####[facility] [address] [place], [address] Basic Metabolic Profile (BMP )on 02-27-2024 BUN/CRE 16.9 RATIO Normal 10-20 [facility] Comment on above: Performed By: #### L 500.2500 ####[facility] [address] [place], [address] CA,Total 8.4 mg/dL Low 8.5-10.1 [facility] Comment on above: Performed By: #### L 500.2500 ####[facility] [address] [place], [address] Chloride [Moles/Vol] 109 mmol/L High 98-107 [facility] Comment on above: Performed By: #### L 500.2500 ####[facility] [address] [place], [address] CO2 [Moles/Vol] 26.0 mmol/L Normal 21.0-32.0 [facility] Comment on above: Performed By: #### L 500.2500 ####[facility] [address] [place], [address] Creatinine [Mass/Vol] 2.95 mg/dL High 0.55-1.02 [facility] Comment on above: Result Comment: The validity of the calculated GFR GFRAA in patients over70 years has not been determined. Clinical correlation isessential. Performed By: #### L 500.2500 ####[facility] [address] [place], [address] ECRCL 21.91 ml/min Normal [facility] Comment on above: Performed By: #### L 500.2500 ####[facility] [address] [place], [address] EST GFR - AA 21 mL/min Low >60 [facility] Comment on above: Result Comment: Afri can Japanese GFR Calc Performed By: #### L 500.2500 ####[facility] [address] [place], [address] GAP 3 Low 5-15 [facility] Comment on above: Performed By: #### L 500.2500 ####[facility] [address] [place], [address] GFR/1.73 sq M.predicted among non-blacks MDRD (S/P/Bld) [Vol rate/Area] 18 mL/min/{1.73_m2} Low >60 [facility] Comment on above: Result Comment: Non- GFR Calc Performed By: #### L 500.2500 ####[facility] [address] [place], [address] Glucose [Mass/Vol] 354 mg/dL High 74-106 [facility] Comment on above: Result Comment: Gluc ose result greater than or equal to 200 mg/dLsuggests DIABETES MELLITUS per A.D.A. criteria. Performed By: #### L 500.2500 ####[facility] [address] [place], [address] Potassium [Moles/Vol] 4.9 mmol/L Normal 3.5-5.1 [facility] Comment on above: Performed By: #### L 500.2500 ####[facility] [address] [place], [address] Sodium [Moles/Vol] 138 mmol/L Normal 136-145 [facility] Comment on above: Performed By: #### L 500.2500 ####[facility] [address] [place], [address] Urea nitrogen [Mass/Vol] 50 mg/dL High 7-18 [facility] Comment on above: Performed By: #### L 500.2500 ####[facility] [address] [place], [address] Bedside Glucoseon 02-27-2024 FINGERSTICK GLU 248 mg/dL High 74-106 [facility] Comment on above: Result Comment: DELLA GEMENT OF PATIENT CARE PER NURSING PROTOCOL Performed By: #### L 501.080 ####[facility] [address] [place], [address] FINGERSTICK GLU 352 mg/dL High 74-106 [facility] Comment on above: Result Comment: DELLA GEMENT OF PATIENT CARE PER NURSING PROTOCOL Performed By: #### L 501.080 ####[facility] [address] [place], [address] FINGERSTICK GLU 216 mg/dL High 74-106 [facility] Comment on above: Result Comment: DELLA GEMENT OF PATIENT CARE PER NURSING PROTOCOL Performed By: #### L 501.080 ####[facility] [address] [place], [address] Consultation - Nephrologyon 02-27-2024 Consultation - Nephrology Normal [facility] Creatinine, Urineon 02-27-20 24 URINE CREAT 29.20 mg/dL Normal NO RANGE EST. [facility] Comment on above: Performed By: #### L 502.0300, L400.0001, L500.9400 ####[facility] [address] [place], [address] Kidney and Bladderon 024 Kidney and Bladder Normal [facility] Protein, Urine (Random)on Protein (U) [Mass/Vol] 16.2 mg/dL High <11.9 [facility] Comment on above: Performed By: #### L 501.1930 ####[facility] [address] [place], [address] Urinalysis, Completeon 02-26 BACTERIA RARE Normal None Seen [facility] Comment on above: Order Comment: CLEAN CATCH Performed By: #### L 502.0300, L400.0001, L500.9400 ####[facility] [address] [place], [address] RBC 0-5 SEEN Normal 0-5 [facility] Comment on above: Order Comment: CLEAN CATCH Performed By: #### L 502.0300, L400.0001, L500.9400 ####[facility] [address] [place], [address] WBC 5-10 SEEN Normal 0-5 [facility] Comment on above: Order Comment: CLEAN CATCH Performed By: #### L 502.0300, L400.0001, L500.9400 ####[facility] [address] [place], [address] EPI,TRANSITION 0-5 SEEN Normal 0-5 [facility] Comment on above: Order Comment: CLEAN CATCH Performed By: #### L 502.0300, L400.0001, L500.9400 ####[facility] [address] [place], [address] EPI,SQUAMOUS 10-25 SEEN Normal 5-10 [facility] Comment on above: Order Comment: CLEAN CATCH Performed By: #### L 502.0300, L400.0001, L500.9400 ####[facility] [address] [place], [address] Mucus Ql (Urine sed) 0 SEEN Normal [facility] Comment on above: Order Comment: CLEAN CATCH Performed By: #### L 502.0300, L400.0001, L500.9400 ####[facility] [address] [place], [address] BACTERIA Normal None Seen [facility] Comment on above: Order Comment: CLEAN CATCH Result Comment: ESTEBAN GED DATE ON ORIGINAL ORDER Performed By: #### L 400.0001 ####[facility] [address] [place], [address] BILIRUBIN URINE Normal Negative [facility] Comment on above: Order Comment: CLEAN CATCH Result Comment: ESTEBAN GED DATE ON ORIGINAL ORDER Performed By: #### L 400.0001 ####[facility] [address] [place], [address] Clarity (U) Normal Clear [facility] Comment on above: Order Comment: CLEAN CATCH Result Comment: ESTEBAN GED DATE ON ORIGINAL ORDER Performed By: #### L 400.0001 ####[facility] [address] [place], [address] Color (U) Normal Yellow [facility] Comment on above: Order Comment: CLEAN CATCH Result Comment: ESTEBAN GED DATE ON ORIGINAL ORDER Performed By: #### L 400.0001 ####[facility] [address] [place], [address] EPI,SQUAMOUS Normal 5-10 [facility] Comment on above: Order Comment: CLEAN CATCH Result Comment: ESTEBAN GED DATE ON ORIGINAL ORDER Performed By: #### L 400.0001 ####[facility] [address] [place], [address] GLUCOSE, UR Normal Normal [facility] Comment on above: Order Comment: CLEAN CATCH Result Comment: ESTEBAN GED DATE ON ORIGINAL ORDER Performed By: #### L 400.0001 ####[facility] [address] [place], [address] KETONE UR Normal Negative [facility] Comment on above: Order Comment: CLEAN CATCH Result Comment: ESTEBAN GED DATE ON ORIGINAL ORDER Performed By: #### L 400.0001 ####[facility] [address] [place], [address] LEUK ESTERASE Normal Negative [facility] Comment on above: Order Comment: CLEAN CATCH Result Comment: ESTEBAN GED DATE ON ORIGINAL ORDER Performed By: #### L 400.0001 ####[facility] [address] [place], [address] Mucus Ql (Urine sed) Normal [facility] Comment on above: Order Comment: CLEAN CATCH Result Comment: ESTEBAN GED DATE ON ORIGINAL ORDER Performed By: #### L 400.0001 ####[facility] [address] [place], [address] Nitrite Ql (U) Normal Negative [facility] Comment on above: Order Comment: CLEAN CATCH Result Comment: ESTEBAN GED DATE ON ORIGINAL ORDER Performed By: #### L 400.0001 ####[facility] [address] [place], [address] OCCULT BLOOD-UR Normal Negative [facility] Comment on above: Order Comment: CLEAN CATCH Result Comment: ESTEBAN GED DATE ON ORIGINAL ORDER Performed By: #### L 400.0001 ####[facility] [facility] [address] [place], [address] pH UR Normal 5.0 - 8.0 [facility] Comment on above: Order Comment: CLEAN CATCH Result Comment: ESTEBAN GED DATE ON ORIGINAL ORDER Performed By: #### L 400.0001 ####[facility] [address] [place], [address] PROT DIPSTX Normal Negative [facility] Comment on above: Order Comment: CLEAN CATCH Result Comment: ESTEBAN GED DATE ON ORIGINAL ORDER Performed By: #### L 400.0001 ####[facility] [address] [place], [address] RBC Normal 0-5 [facility] Comment on above: Order Comment: CLEAN CATCH Result Comment: ESTEBAN GED DATE ON ORIGINAL ORDER Performed By: #### L 400.0001 ####[facility] [address] [place], [address] SP.GR. DIPSTX Normal 1.002-1.030 [facility] Comment on above: Order Comment: CLEAN CATCH Result Comment: ESTEBAN GED DATE ON ORIGINAL ORDER Performed By: #### L 400.0001 ####[facility] [address] [place], [address] UR Preservative Normal [facility] Comment on above: Order Comment: CLEAN CATCH Result Comment: ESTEBAN GED DATE ON ORIGINAL ORDER Performed By: #### L 400.0001 ####[facility] [address] [place], [address] UROBILI Normal Normal [facility] Comment on above: Order Comment: CLEAN CATCH Result Comment: ESTEBAN GED DATE ON ORIGINAL ORDER Performed By: #### L 400.0001 ####[facility] [address] [place], [address] WBC Normal 0-5 [facility] Comment on above: Order Comment: CLEAN CATCH Result Comment: ESTEBAN GED DATE ON ORIGINAL ORDER Performed By: #### L 400.0001 ####[facility] [address] [place], [address] Urine Electrolytes- Randomon 02-27-2024 Sodium (U) [Moles/Vol] 80 mmol/L Normal Not Establ. [facility] Comment on above: Result Comment: DUPL ICATE ORDER Performed By: #### L 502.0300, L400.0001, L500.9400 ####[facility] [address] [place], [address] UR CL 90 mmol/L Normal Not Establ. [facility] Comment on above: Result Comment: DUPL ICATE ORDER Performed By: #### L 502.0300, L400.0001, L500.9400 ####[facility] [address] [place], [address] UR K 18.0 mmol/L Normal Not Establ. [facility] Comment on above: Result Comment: DUPL ICATE ORDER Performed By: #### L 502.0300, L400.0001, L500.9400 ####[facility] [address] [place], [address] Basic Metabolic Profile (BMP )on 02-26-2024 BUN/CRE 19.1 RATIO Normal 10-20 [facility] Comment on above: Performed By: #### L 100.0100, L500.2500 ####[facility] [address] [place], [address] CA,Total 8.3 mg/dL Low 8.5-10.1 [facility] Comment on above: Performed By: #### L 100.0100, L500.2500 ####[facility] [address] [place], [address] Chloride [Moles/Vol] 110 mmol/L High 98-107 [facility] Comment on above: Performed By: #### L 100.0100, L500.2500 ####[facility] [address] [place], [address] CO2 [Moles/Vol] 24.0 mmol/L Normal 21.0-32.0 [facility] Comment on above: Performed By: #### L 100.0100, L500.2500 ####[facility] [address] [place], [address] Creatinine [Mass/Vol] 2.57 mg/dL High 0.55-1.02 [facility] Comment on above: Result Comment: The validity of the calculated GFR GFRAA in patients over70 years has not been determined. Clinical correlation isessential. Performed By: #### L 100.0100, L500.2500 ####[facility] [address] [place], [address] ECRCL 25.15 ml/min Normal [facility] Comment on above: Performed By: #### L 100.0100, L500.2500 ####[facility] [address] [place], [address] EST GFR - AA 25 mL/min Low >60 [facility] Comment on above: Result Comment: Afri can Japanese GFR Calc Performed By: #### L 100.0100, L500.2500 ####[facility] [address] [place], [address] GAP 7 Normal 5-15 [facility] Comment on above: Performed By: #### L 100.0100, L500.2500 ####[facility] [address] [place], [address] GFR/1.73 sq M.predicted among non-blacks MDRD (S/P/Bld) [Vol rate/Area] 21 mL/min/{1.73_m2} Low >60 [facility] Comment on above: Result Comment: Non- GFR Calc Performed By: #### L 100.0100, L500.2500 ####[facility] [address] [place], [address] Glucose [Mass/Vol] 224 mg/dL High 74-106 [facility] Comment on above: Result Comment: Gluc ose result greater than or equal to 200 mg/dLsuggests DIABETES MELLITUS per A.D.A. criteria. Performed By: #### L 100.0100, L500.2500 ####[facility] [address] [place], [address] Potassium [Moles/Vol] 4.5 mmol/L Normal 3.5-5.1 [facility] Comment on above: Performed By: #### L 100.0100, L500.2500 ####[facility] [address] [place], [address] Sodium [Moles/Vol] 141 mmol/L Normal 136-145 [facility] Comment on above: Performed By: #### L 100.0100, L500.2500 ####[facility] [address] [place], [address] Urea nitrogen [Mass/Vol] 49 mg/dL High 7-18 [facility] Comment on above: Performed By: #### L 100.0100, L500.2500 ####[facility] [address] [place], [address] Bedside Glucoseon 02-26-2024 FINGERSTICK GLU 144 mg/dL High 74-106 [facility] Comment on above: Result Comment: DELLA GEMENT OF PATIENT CARE PER NURSING PROTOCOL Performed By: #### L 501.080 ####[facility] [address] [place], [address] FINGERSTICK GLU 238 mg/dL High 74-106 [facility] Comment on above: Result Comment: DELLA GEMENT OF PATIENT CARE PER NURSING PROTOCOL Performed By: #### L 501.080 ####[facility] [address] [place], [address] FINGERSTICK GLU 342 mg/dL High 74-106 [facility] Comment on above: Result Comment: DELLA GEMENT OF PATIENT CARE PER NURSING PROTOCOL Performed By: #### L 501.080 ####[facility] [address] [place], [address] FINGERSTICK GLU 194 mg/dL High 74-106 [facility] Comment on above: Result Comment: DELLA GEMENT OF PATIENT CARE PER NURSING PROTOCOL Performed By: #### L 501.080 ####[facility] [address] [place], [address] CBC W/Diff, Automatedon 02-13 Absolute Lymph 0.92 X10 3/uL Normal 0.83-4.51 [facility] Comment on above: Performed By: #### L 100.0100, L500.2500 ####[facility] [address] [place], [address] Absolute Neut 3.9 X10 3/uL Normal 2.0-7.7 [facility] Comment on above: Performed By: #### L 100.0100, L500.2500 ####[facility] [address] [place], [address] Basophils/100 WBC (Bld) 0.5 % Normal 0-1 [facility] Comment on above: Performed By: #### L 100.0100, L500.2500 ####[facility] [address] [place], [address] Eosinophils/100 WBC (Bld) 2.2 % Normal 0-5 [facility] Comment on above: Performed By: #### L 100.0100, L500.2500 ####[facility] [address] [place], [address] Erythrocyte distribution width (RBC) [Ratio] 12.7 % Normal 11.6-14.6 [facility] Comment on above: Performed By: #### L 100.0100, L500.2500 ####[facility] [address] [place], [address] Hematocrit (Bld) [Volume fraction] 37.8 % Normal 37-47 [facility] Comment on above: Performed By: #### L 100.0100, L500.2500 ####[facility] [address] [place], [address] Hemoglobin (Bld) [Mass/Vol] 12.8 g/dL Normal 12.0-15.0 [facility] Comment on above: Performed By: #### L 100.0100, L500.2500 ####[facility] [address] [place], [address] IG% 1.000 High 0.0-0.9 [facility] Comment on above: Result Comment: IG% - Immature Granulocytes (promyelocytes, myelocytes andmetamyelocytes) > 1% indicates that a LEFT SHIFT is Present. Performed By: #### L 100.0100, L500.2500 ####[facility] [address] [place], [address] Lymphocytes/100 WBC (Bld) 15.4 % Low 19-41 [facility] Comment on above: Performed By: #### L 100.0100, L500.2500 ####[facility] [address] [place], [address] MCH (RBC) [Entitic mass] 29.0 pg Normal 27.0-32.0 [facility] Comment on above: Performed By: #### L 100.0100, L500.2500 ####[facility] [address] [place], [address] MCHC (RBC) [Mass/Vol] 33.9 g/dL Normal 32-36 [facility] Comment on above: Performed By: #### L 100.0100, L500.2500 ####[facility] [address] [place], [address] MCV (RBC) [Entitic vol] 85.5 fL Normal 81-99 [facility] Comment on above: Performed By: #### L 100.0100, L500.2500 ####[facility] [address] [place], [address] Monocytes/100 WBC (Bld) 16.6 % High 0-10 [facility] Comment on above: Performed By: #### L 100.0100, L500.2500 ####[facility] [address] [place], [address] Neutrophils/100 WBC (Bld) 64.3 % Normal 47-70 [facility] Comment on above: Performed By: #### L 100.0100, L500.2500 ####[facility] [address] [place], [address] Nucleated RBC (Bld) [#/Vol] 0 10*3/uL Normal 0-5 [facility] Comment on above: Performed By: #### L 100.0100, L500.2500 ####[facility] [address] [place], [address] Platelet mean volume (Bld) [Entitic vol] 11.4 fL Normal 6.2-12.0 [facility] Comment on above: Performed By: #### L 100.0100, L500.2500 ####[facility] [address] [place], [address] Platelets (Bld) [#/Vol] 152 10*3/uL Normal 150-450 [facility] Comment on above: Performed By: #### L 100.0100, L500.2500 ####[facility] [address] [place], [address] RBC (Bld) [#/Vol] 4.42 10*6/uL Normal 4.2-5.4 [facility] Comment on above: Performed By: #### L 100.0100, L500.2500 ####[facility] [address] [place], [address] RDW SD 39.5 fl Normal 35.1-43.9 [facility] Comment on above: Performed By: #### L 100.0100, L500.2500 ####[facility] [address] [place], [address] WBC (Bld) [#/Vol] 6.0 10*3/uL Normal 4.4-11.0 [facility] Comment on above: Performed By: #### L 100.0100, L500.2500 ####[facility] [address] [place], [address] Consultation - Infectious Dx on 02-26-2024 Consultation - Infectious Dx Normal [facility] Vancomycin, Random Levelon 1 04-27-2023 VANCO, RANDOM 28.6 ug/mL High 0.0-15.0 [facility] Comment on above: Result Comment: VANC OMYCIN STANDARD DRUG THERAPY: CRITICAL VALUE IS > 15.0 mg/LVANCOMYCIN HIGH INTENSITY THERAPY: CRITICAL VALUE IS > 20.0 mg/LPLEASE CONTACT PHARMACY SERVICES (#7951) FOR INTERPRETATIONOF RESULTS. THIS RESULT DOES NOT REPRESENT A PEAK OR TROUGHLEVEL FOR THIS DRUG. Performed By: #### L 501.8850 ####[facility] [address] [place], [address] Wound Cultureon 02-26-2024 WC collected in or bone culture right proximal phalyn No growth aerobically. Normal [facility] Comment on above: Performed By: #### M 100.4001, M600.2200, M100.2000, M300.2000, M600.2000, M300.3000, M100.3000 ####[facility] [address] [place], [address] Basic Metabolic Profile (BMP )on 02-25-2024 BUN/CRE 16.7 RATIO Normal 10-20 [facility] Comment on above: Performed By: #### L 500.2500, L100.0100 ####[facility] [address] [place], [address] CA,Total 8.4 mg/dL Low 8.5-10.1 [facility] Comment on above: Performed By: #### L 500.2500, L100.0100 ####[facility] [address] [place], [address] Chloride [Moles/Vol] 105 mmol/L Normal 98-107 [facility] Comment on above: Performed By: #### L 500.2500, L100.0100 ####[facility] [address] [place], [address] CO2 [Moles/Vol] 26.0 mmol/L Normal 21.0-32.0 [facility] Comment on above: Performed By: #### L 500.2500, L100.0100 ####[facility] [address] [place], [address] Creatinine [Mass/Vol] 1.80 mg/dL High 0.55-1.02 [facility] Comment on above: Result Comment: The validity of the calculated GFR GFRAA in patients over70 years has not been determined. Clinical correlation isessential. Performed By: #### L 500.2500, L100.0100 ####[facility] [address] [place], [address] ECRCL 35.42 ml/min Normal [facility] Comment on above: Performed By: #### L 500.2500, L100.0100 ####[facility] [address] [place], [address] EST GFR - AA 38 mL/min Low >60 [facility] Comment on above: Result Comment: Afri can Japanese GFR Calc Performed By: #### L 500.2500, L100.0100 ####[facility] [address] [place], [address] GAP 6 Normal 5-15 [facility] Comment on above: Performed By: #### L 500.2500, L100.0100 ####[facility] [address] [place], [address] GFR/1.73 sq M.predicted among non-blacks MDRD (S/P/Bld) [Vol rate/Area] 31 mL/min/{1.73_m2} Low >60 [facility] Comment on above: Result Comment: Non- GFR Calc Performed By: #### L 500.2500, L100.0100 ####[facility] [address] [place], [address] Glucose [Mass/Vol] 298 mg/dL High 74-106 [facility] Comment on above: Result Comment: Gluc ose result greater than or equal to 200 mg/dLsuggests DIABETES MELLITUS per A.D.A. criteria. Performed By: #### L 500.2500, L100.0100 ####[facility] [address] [place], [address] Potassium [Moles/Vol] 4.6 mmol/L Normal 3.5-5.1 [facility] Comment on above: Performed By: #### L 500.2500, L100.0100 ####[facility] [address] [place], [address] Sodium [Moles/Vol] 137 mmol/L Normal 136-145 [facility] Comment on above: Performed By: #### L 500.2500, L100.0100 ####[facility] [address] [place], [address] Urea nitrogen [Mass/Vol] 30 mg/dL High 7-18 [facility] Comment on above: Performed By: #### L 500.2500, L100.0100 ####[facility] [address] [place], [address] Bedside Glucoseon 02-25-2024 FINGERSTICK GLU 457 mg/dL Invalid Interpretation Code [address] [place] [address] Comment on above: Result Comment: Repe at TestMANAGEMENT OF PATIENT CARE PER NURSING PROTOCOL Performed By: #### L 501.080 ####[facility] [address] [place], [address] FINGERSTICK GLU > 500 Invalid Interpretation Code [address] [place] [address] Comment on above: Result Comment: DELLA GEMENT OF PATIENT CARE PER NURSING PROTOCOL Performed By: #### L 501.080 ####[facility] [address] [place], [address] FINGERSTICK GLU 201 mg/dL High 74-106 [facility] Comment on above: Result Comment: DELLA GEMENT OF PATIENT CARE PER NURSING PROTOCOL Performed By: #### L 501.080 ####[facility] [address] [place], [address] FINGERSTICK GLU 180 mg/dL High 74-106 [facility] Comment on above: Result Comment: DELLA GEMENT OF PATIENT CARE PER NURSING PROTOCOL Performed By: #### L 501.080 ####[facility] [address] [place], [address] FINGERSTICK GLU 408 mg/dL High 74-106 [facility] Comment on above: Result Comment: DELLA GEMENT OF PATIENT CARE PER NURSING PROTOCOL Performed By: #### L 501.080 ####[facility] [address] [place], [address] FINGERSTICK GLU 294 mg/dL High 74-106 [facility] Comment on above: Result Comment: DELLA GEMENT OF PATIENT CARE PER NURSING PROTOCOL Performed By: #### L 501.080 ####[facility] [address] [place], [address] CBC W/Diff, Automatedon 11- Absolute Lymph 0.80 X10 3/uL Low 0.83-4.51 [facility] Comment on above: Performed By: #### L 500.2500, L100.0100 ####[facility] [address] [place], [address] Absolute Neut 5.8 X10 3/uL Normal 2.0-7.7 [facility] Comment on above: Performed By: #### L 500.2500, L100.0100 ####[facility] [address] [place], [address] Basophils/100 WBC (Bld) 0.3 % Normal 0-1 [facility] Comment on above: Performed By: #### L 500.2500, L100.0100 ####[facility] [address] [place], [address] Eosinophils/100 WBC (Bld) 1.0 % Normal 0-5 [facility] Comment on above: Performed By: #### L 500.2500, L100.0100 ####[facility] [address] [place], [address] Erythrocyte distribution width (RBC) [Ratio] 12.9 % Normal 11.6-14.6 [facility] Comment on above: Performed By: #### L 500.2500, L100.0100 ####[facility] [address] [place], [address] Hematocrit (Bld) [Volume fraction] 41.8 % Normal 37-47 [facility] Comment on above: Performed By: #### L 500.2500, L100.0100 ####[facility] [address] [place], [address] Hemoglobin (Bld) [Mass/Vol] 13.5 g/dL Normal 12.0-15.0 [facility] Comment on above: Performed By: #### L 500.2500, L100.0100 ####[facility] [address] [place], [address] IG% 1.000 High 0.0-0.9 [facility] Comment on above: Result Comment: IG% - Immature Granulocytes (promyelocytes, myelocytes andmetamyelocytes) > 1% indicates that a LEFT SHIFT is Present. Performed By: #### L 500.2500, L100.0100 ####[facility] [address] [place], [address] Lymphocytes/100 WBC (Bld) 10.2 % Low 19-41 [facility] Comment on above: Performed By: #### L 500.2500, L100.0100 ####[facility] [address] [place], [address] MCH (RBC) [Entitic mass] 28.2 pg Normal 27.0-32.0 [facility] Comment on above: Performed By: #### L 500.2500, L100.0100 ####[facility] [address] [place], [address] MCHC (RBC) [Mass/Vol] 32.3 g/dL Normal 32-36 [facility] Comment on above: Performed By: #### L 500.2500, L100.0100 ####[facility] [address] [place], [address] MCV (RBC) [Entitic vol] 87.4 fL Normal 81-99 [facility] Comment on above: Performed By: #### L 500.2500, L100.0100 ####[facility] [address] [place], [address] Monocytes/100 WBC (Bld) 12.9 % High 0-10 [facility] Comment on above: Performed By: #### L 500.2500, L100.0100 ####[facility] [address] [place], [address] Neutrophils/100 WBC (Bld) 74.6 % High 47-70 [facility] Comment on above: Performed By: #### L 500.2500, L100.0100 ####[facility] [address] [place], [address] Nucleated RBC (Bld) [#/Vol] 0 10*3/uL Normal 0-5 [facility] Comment on above: Performed By: #### L 500.2500, L100.0100 ####[facility] [address] [place], [address] Platelet mean volume (Bld) [Entitic vol] 10.9 fL Normal 6.2-12.0 [facility] Comment on above: Performed By: #### L 500.2500, L100.0100 ####[facility] [address] [place], [address] Platelets (Bld) [#/Vol] 153 10*3/uL Normal 150-450 [facility] Comment on above: Performed By: #### L 500.2500, L100.0100 ####[facility] [address] [place], [address] RBC (Bld) [#/Vol] 4.78 10*6/uL Normal 4.2-5.4 [facility] Comment on above: Performed By: #### L 500.2500, L100.0100 ####[facility] [address] [place], [address] RDW SD 41.1 fl Normal 35.1-43.9 [facility] Comment on above: Performed By: #### L 500.2500, L100.0100 ####[facility] [address] [place], [address] WBC (Bld) [#/Vol] 7.8 10*3/uL Normal 4.4-11.0 [facility] Comment on above: Performed By: #### L 500.2500, L100.0100 ####[facility] [address] [place], [address] Glucoseon 02-25-2024 Glucose [Mass/Vol] 488 mg/dL Invalid Interpretation Code 74-106 [facility] Comment on above: Order Comment: Comme nts: BG [id number] Result Comment: Crit ical Result(s) Called at: 22:52:36 02/25/2024 by: JENNIFER JOE. Results read back by same.Glucose result greater than or equal to 200 mg/dLsuggests DIABETES MELLITUS per A.D.A. criteria. Performed By: #### L 501.0100 ####[facility] [address] [place], [address] Gram Stainon 02-25-2024 GS collected in or bone culture right proximal phalyn Gram Stain Rare Red Blood Cells Rare White Blood Cells No organisms seen Normal [facility] Comment on above: Performed By: #### M 100.4001, M600.2200, M100.2000, M300.2000, M600.2000, M300.3000, M100.3000 ####[facility] [address] [place], [address] MR/[id number] 02-25-2024 MR/POSTOPAN2 Normal [facility] Vancomycin, Trough Levelon 1 04-26-2023 VANCO, TROUGH 37.5 ug/mL High 5.0-15.0 [facility] Comment on above: Order Comment: Comme nts: DRAW 30 MIN PRIOR TO [id number] Result Comment: VANC OMYCIN STANDARED DRUG THERAPY TROUGH LEVEL: 5.0 - 15.0 mg/LVANCOMYCIN HIGH INTENSITY THERAPY TROUGH LEVEL: 15.0 - 20.0 mg/LHigh Intensity therapy recommended for serious lifethreatening infections include:- Pyjqtyfsag-Osillmwcfzhl-Tbrfnilzc (Ventilator/Healtcare Associated)-SepsisPLEASE CONTACT PHARMACY SERVICES (#3535) FOR INTERPRETATIONOF RESULTS. Performed By: #### L 501.8820 ####[facility] [address] [place], [address] 12 Lead EKGon 02-24-2024 12 Lead EKG Normal [facility] Basic Metabolic Profile (BMP )on 02-24-2024 BUN/CRE 24.6 RATIO High 10-20 [facility] Comment on above: Performed By: #### L 100.0100, L500.2500 ####[facility] [address] [place], [address] CA,Total 8.6 mg/dL Normal 8.5-10.1 [facility] Comment on above: Performed By: #### L 100.0100, L500.2500 ####[facility] [address] [place], [address] Chloride [Moles/Vol] 104 mmol/L Normal 98-107 [facility] Comment on above: Performed By: #### L 100.0100, L500.2500 ####[facility] [address] [place], [address] CO2 [Moles/Vol] 29.0 mmol/L Normal 21.0-32.0 [facility] Comment on above: Performed By: #### L 100.0100, L500.2500 ####[facility] [address] [place], [address] Creatinine [Mass/Vol] 0.73 mg/dL Normal 0.55-1.02 [facility] Comment on above: Result Comment: The validity of the calculated GFR GFRAA in patients over70 years has not been determined. Clinical correlation isessential. Performed By: #### L 100.0100, L500.2500 ####[facility] [address] [place], [address] ECRCL 80.20 ml/min Normal [facility] Comment on above: Performed By: #### L 100.0100, L500.2500 ####[facility] [address] [place], [address] EST GFR - AA 107 mL/min Normal >60 [facility] Comment on above: Result Comment: Afri can Japanese GFR Calc Performed By: #### L 100.0100, L500.2500 ####[facility] [address] [place], [address] GAP 5 Normal 5-15 [facility] Comment on above: Performed By: #### L 100.0100, L500.2500 ####[facility] [address] [place], [address] GFR/1.73 sq M.predicted among non-blacks MDRD (S/P/Bld) [Vol rate/Area] 88 mL/min/{1.73_m2} Normal >60 [facility] Comment on above: Result Comment: Non- GFR Calc Performed By: #### L 100.0100, L500.2500 ####[facility] [address] [place], [address] Glucose [Mass/Vol] 435 mg/dL High 74-106 [facility] Comment on above: Result Comment: Gluc ose result greater than or equal to 200 mg/dLsuggests DIABETES MELLITUS per A.D.A. criteria. Performed By: #### L 100.0100, L500.2500 ####[facility] [address] [place], [address] Potassium [Moles/Vol] 3.8 mmol/L Normal 3.5-5.1 [facility] Comment on above: Performed By: #### L 100.0100, L500.2500 ####[facility] [address] [place], [address] Sodium [Moles/Vol] 138 mmol/L Normal 136-145 [facility] Comment on above: Performed By: #### L 100.0100, L500.2500 ####[facility] [address] [place], [address] Urea nitrogen [Mass/Vol] 18 mg/dL Normal 7-18 [facility] Comment on above: Performed By: #### L 100.0100, L500.2500 ####[facility] [address] [place], [address] Bedside Glucoseon 02-24-2024 FINGERSTICK GLU 393 mg/dL High [address] [place] [address] Comment on above: Result Comment: DELLA GEMENT OF PATIENT CARE PER NURSING PROTOCOL Performed By: #### L 501.080 ####[facility] [address] [place], [address] FINGERSTICK GLU 230 mg/dL High [address] [place] [address] Comment on above: Result Comment: DELLA GEMENT OF PATIENT CARE PER NURSING PROTOCOL Performed By: #### L 501.080 ####[facility] [address] [place], [address] FINGERSTICK GLU 264 mg/dL High [address] [place] [address] Comment on above: Result Comment: DELLA GEMENT OF PATIENT CARE PER NURSING PROTOCOL Performed By: #### L 501.080 ####[facility] [address] [place], [address] FINGERSTICK GLU 229 mg/dL High 74-106 [facility] Comment on above: Result Comment: DELLA GEMENT OF PATIENT CARE PER NURSING PROTOCOL Performed By: #### L 501.080 ####[facility] [address] [place], [address] FINGERSTICK GLU 409 mg/dL High 74-106 [facility] Comment on above: Result Comment: DELLA GEMENT OF PATIENT CARE PER NURSING PROTOCOL Performed By: #### L 501.080 ####[facility] [address] [place], [address] CBC W/Diff, Automatedon 11- Absolute Lymph 1.02 X10 3/uL Normal 0.83-4.51 [facility] Comment on above: Performed By: #### L 100.0100, L500.2500 ####[facility] [address] [place], [address] Absolute Neut 3.4 X10 3/uL Normal 2.0-7.7 [facility] Comment on above: Performed By: #### L 100.0100, L500.2500 ####[facility] [address] [place], [address] Basophils/100 WBC (Bld) 0.4 % Normal 0-1 [facility] Comment on above: Performed By: #### L 100.0100, L500.2500 ####[facility] [address] [place], [address] Eosinophils/100 WBC (Bld) 2.5 % Normal 0-5 [facility] Comment on above: Performed By: #### L 100.0100, L500.2500 ####[facility] [address] [place], [address] Erythrocyte distribution width (RBC) [Ratio] 13.0 % Normal 11.6-14.6 [facility] Comment on above: Performed By: #### L 100.0100, L500.2500 ####[facility] [address] [place], [address] Hematocrit (Bld) [Volume fraction] 40.6 % Normal 37-47 [facility] Comment on above: Performed By: #### L 100.0100, L500.2500 ####[facility] [address] [place], [address] Hemoglobin (Bld) [Mass/Vol] 13.2 g/dL Normal 12.0-15.0 [facility] Comment on above: Performed By: #### L 100.0100, L500.2500 ####[facility] [address] [place], [address] IG% 1.000 High 0.0-0.9 [facility] Comment on above: Result Comment: IG% - Immature Granulocytes (promyelocytes, myelocytes andmetamyelocytes) > 1% indicates that a LEFT SHIFT is Present. Performed By: #### L 100.0100, L500.2500 ####[facility] [address] [place], [address] Lymphocytes/100 WBC (Bld) 19.7 % Normal 19-41 [facility] Comment on above: Performed By: #### L 100.0100, L500.2500 ####[facility] [address] [place], [address] MCH (RBC) [Entitic mass] 28.3 pg Normal 27.0-32.0 [facility] Comment on above: Performed By: #### L 100.0100, L500.2500 ####[facility] [address] [place], [address] MCHC (RBC) [Mass/Vol] 32.5 g/dL Normal 32-36 [facility] Comment on above: Performed By: #### L 100.0100, L500.2500 ####[facility] [address] [place], [address] MCV (RBC) [Entitic vol] 86.9 fL Normal 81-99 [facility] Comment on above: Performed By: #### L 100.0100, L500.2500 ####[facility] [address] [place], [address] Monocytes/100 WBC (Bld) 11.2 % High 0-10 [facility] Comment on above: Performed By: #### L 100.0100, L500.2500 ####[facility] [address] [place], [address] Neutrophils/100 WBC (Bld) 65.2 % Normal 47-70 [facility] Comment on above: Performed By: #### L 100.0100, L500.2500 ####[facility] [address] [place], [address] Nucleated RBC (Bld) [#/Vol] 0 10*3/uL Normal 0-5 [facility] Comment on above: Performed By: #### L 100.0100, L500.2500 ####[facility] [address] [place], [address] Platelet mean volume (Bld) [Entitic vol] 10.8 fL Normal 6.2-12.0 [facility] Comment on above: Performed By: #### L 100.0100, L500.2500 ####[facility] [address] [place], [address] Platelets (Bld) [#/Vol] 160 10*3/uL Normal 150-450 [facility] Comment on above: Performed By: #### L 100.0100, L500.2500 ####[facility] [address] [place], [address] RBC (Bld) [#/Vol] 4.67 10*6/uL Normal 4.2-5.4 [facility] Comment on above: Performed By: #### L 100.0100, L500.2500 ####[facility] [address] [place], [address] RDW SD 40.4 fl Normal 35.1-43.9 [facility] Comment on above: Performed By: #### L 100.0100, L500.2500 ####[facility] [address] [place], [address] WBC (Bld) [#/Vol] 5.2 10*3/uL Normal 4.4-11.0 [facility] Comment on above: Performed By: #### L 100.0100, L500.2500 ####[facility] [address] [place], [address] Decalcification bone/plaqueo n 02-24-2024 Decalcification bone/plaque Normal [facility] Comment on above: Performed By: #### P DEC ####[facility] [address] [place], [address] Foot min 3 Viewson 4 Foot min 3 Views Normal [facility] Hemoglobin A1con 02-24-2024 HbA1c (Bld) [Mass fraction] 11.2 % High 3.8-5.6 [facility] Comment on above: Result Comment: Norm al < 5.7 % Prediabetic 5.7 - 6.4 % Diabetic >or= 6.5 % Please note range changes. Performed By: #### L 501.9985, L300.4310 ####[facility] [address] [place], [address] MR/POSTOP.ANEon 02-24-2024 MR/POSTOP.ANE Normal [facility] Operative Reporton 11-11-202 4 Operative Report Normal [facility] Partial Thromboplast Timeon 02-24-2024 aPTT Coag (Bld) [Time] 30.8 s Normal 24.1-36.2 [facility] Comment on above: Performed By: #### L 501.9985, L300.4310 ####[facility] [address] [facility] [address] Urine Drug Screen (VISTA)on 02-24-2024 AMPHETAMINES Negative Normal <1000 ng/mL [facility] Comment on above: Order Comment: NOTIF [facility] NURSE SUPERINTENDENT OPERATIONS DIVISION THAT WE DO NOT HAVE A PLAINYELLOW TOP URINE TUBE FOR THIS TESTUNK Performed By: #### L 505.5000 ####[facility] [address] [place] [address] BARBITIURATES Negative Normal < 200 ng/mL [facility] Comment on above: Order Comment: NOTIF [facility] NURSE SUPERINTENDENT OPERATIONS DIVISION THAT WE DO NOT HAVE A PLAINYELLOW TOP URINE TUBE FOR THIS TESTUNK Performed By: #### L 505.5000 ####[facility] [address] [facility] [address] BENZODIAZIPINE Negative Normal < 200 ng/mL [facility] Comment on above: Order Comment: NOTIF [facility] NURSE SUPERINTENDENT OPERATIONS DIVISION THAT WE DO NOT HAVE A PLAINYELLOW TOP URINE TUBE FOR THIS TESTUNK Performed By: #### L 505.5000 ####[facility] [address] [place] [address] COCAINE Negative Normal < 300 ng/mL [facility] Comment on above: Order Comment: NOTIF [facility] NURSE SUPERINTENDENT OPERATIONS DIVISION THAT WE DO NOT HAVE A PLAINYELLOW TOP URINE TUBE FOR THIS TESTUNK Performed By: #### L 505.5000 ####[facility] [address] [facility] [address] ECSTACY Negative Normal < 500 ng/mL [facility] Comment on above: Order Comment: NOTIF [facility] NURSE SUPERINTENDENT OPERATIONS DIVISION THAT WE DO NOT HAVE A PLAINYELLOW TOP URINE TUBE FOR THIS TESTUNK Performed By: #### L 505.5000 ####[facility] [address] [place], [address] METHADONE Negative Normal < 300 ng/mL [facility] Comment on above: Order Comment: NOTIF [facility] NURSE SUPERINTENDENT OPERATIONS DIVISION THAT WE DO NOT HAVE A PLAINYELLOW TOP URINE TUBE FOR THIS TESTUNK Performed By: #### L 505.5000 ####[facility] [address] [facility] [address] OPIATES Positive Abnormal < 300 ng/mL [facility] Comment on above: Order Comment: NOTIF [facility] NURSE SUPERINTENDENT OPERATIONS DIVISION THAT WE DO NOT HAVE A PLAINYELLOW TOP URINE TUBE FOR THIS TESTUNK Performed By: #### L 505.5000 ####[facility] [address] [place] [id number] PCP Negative Normal < 25 ng/mL [facility] Comment on above: Order Comment: NOTIF [facility] NURSE SUPERINTENDENT OPERATIONS DIVISION THAT WE DO NOT HAVE A PLAINYELLOW TOP URINE TUBE FOR THIS TESTUNK Performed By: #### L 505.5000 ####[facility] [address] [place], [address] THC Negative Normal < 50 ng/mL [facility] Comment on above: Order Comment: NOTIF [facility] NURSE SUPERINTENDENT OPERATIONS DIVISION THAT WE DO NOT HAVE A PLAINYELLOW TOP URINE TUBE FOR THIS TESTUNK Performed By: #### L 505.5000 ####[facility] [address] [place], [address] VISTA UDS PH 5 Normal [facility] Comment on above: Order Comment: NOTIF [facility] NURSE SUPERINTENDENT OPERATIONS DIVISION THAT WE DO NOT HAVE A PLAINYELLOW TOP URINE TUBE FOR THIS TESTUNK Performed By: #### L 505.5000 ####[facility] [address] [place], [address] Wound Cultureon 02-24-2024 Normal [facility] Comment on above: Performed By: #### M 100.3000, M100.2000 ####[facility] [address] [place], [address] Basic Metabolic Profile (BMP )on 02-23-2024 BUN/CRE 32.4 RATIO High 10-20 [facility] Comment on above: Performed By: #### L 500.2500, L100.0100 ####[facility] [address] [place], [address] CA,Total 8.5 mg/dL Normal 8.5-10.1 [facility] Comment on above: Performed By: #### L 500.2500, L100.0100 ####[facility] [address] [place], [address] Chloride [Moles/Vol] 108 mmol/L High 98-107 [facility] Comment on above: Performed By: #### L 500.2500, L100.0100 ####[facility] [address] [place], [address] CO2 [Moles/Vol] 29.0 mmol/L Normal 21.0-32.0 [facility] Comment on above: Performed By: #### L 500.2500, L100.0100 ####[facility] [address] [place], [address] Creatinine [Mass/Vol] 0.43 mg/dL Low 0.55-1.02 [facility] Comment on above: Result Comment: The validity of the calculated GFR GFRAA in patients over70 years has not been determined. Clinical correlation isessential. Performed By: #### L 500.2500, L100.0100 ####[facility] [address] [place], [address] ECRCL 136.15 ml/min Normal [facility] Comment on above: Performed By: #### L 500.2500, L100.0100 ####[facility] [address] [place], [address] EST GFR - AA 196 mL/min Normal >60 [facility] Comment on above: Result Comment: Afri can Japanese GFR Calc Performed By: #### L 500.2500, L100.0100 ####[facility] [address] [place], [address] GAP 5 Normal 5-15 [facility] Comment on above: Performed By: #### L 500.2500, L100.0100 ####[facility] [address] [place], [address] GFR/1.73 sq M.predicted among non-blacks MDRD (S/P/Bld) [Vol rate/Area] 162 mL/min/{1.73_m2} Normal >60 [facility] Comment on above: Result Comment: Non- GFR Calc Performed By: #### L 500.2500, L100.0100 ####[facility] [address] [place], [address] Glucose [Mass/Vol] 198 mg/dL High 74-106 [facility] Comment on above: Result Comment: Fast ing Glucose result greater than or equal to 126 mg/dLsuggests DIABETES MELLITUS per A.D.A. criteria. Performed By: #### L 500.2500, L100.0100 ####[facility] [address] [place], [address] Potassium [Moles/Vol] 3.4 mmol/L Low 3.5-5.1 [facility] Comment on above: Performed By: #### L 500.2500, L100.0100 ####[facility] [address] [place], [address] Sodium [Moles/Vol] 142 mmol/L Normal 136-145 [facility] Comment on above: Performed By: #### L 500.2500, L100.0100 ####[facility] [address] [place], [address] Urea nitrogen [Mass/Vol] 14 mg/dL Normal 7-18 [facility] Comment on above: Performed By: #### L 500.2500, L100.0100 ####[facility] [address] [place], [address] Bedside Glucoseon 02-23-2024 FINGERSTICK GLU 291 mg/dL High 74-106 [facility] Comment on above: Result Comment: DELLA GEMENT OF PATIENT CARE PER NURSING PROTOCOL Performed By: #### L 501.080 ####[facility] [address] [place], [address] FINGERSTICK GLU 330 mg/dL High 74-106 [facility] Comment on above: Result Comment: DELLA GEMENT OF PATIENT CARE PER NURSING PROTOCOL Performed By: #### L 501.080 ####[facility] [address] [place], [address] FINGERSTICK GLU 280 mg/dL High 74-106 [facility] Comment on above: Result Comment: DELLA GEMENT OF PATIENT CARE PER NURSING PROTOCOL Performed By: #### L 501.080 ####[facility] [address] [place], [address] CBC W/Diff, Automatedon 11- 0-2023 Absolute Lymph 1.43 X10 3/uL Normal 0.83-4.51 [facility] Comment on above: Performed By: #### L 500.2500, L100.0100 ####[facility] [address] [place], [address] Absolute Neut 2.0 X10 3/uL Normal 2.0-7.7 [facility] Comment on above: Performed By: #### L 500.2500, L100.0100 ####[facility] [address] [place], [address] Basophils/100 WBC (Bld) 1.0 % Normal 0-1 [facility] Comment on above: Performed By: #### L 500.2500, L100.0100 ####[facility] [address] [place], [address] Eosinophils/100 WBC (Bld) 3.8 % Normal 0-5 [facility] Comment on above: Performed By: #### L 500.2500, L100.0100 ####[facility] [address] [place], [address] Erythrocyte distribution width (RBC) [Ratio] 12.9 % Normal 11.6-14.6 [facility] Comment on above: Performed By: #### L 500.2500, L100.0100 ####[facility] [address] [place], [address] Hematocrit (Bld) [Volume fraction] 40.9 % Normal 37-47 [facility] Comment on above: Performed By: #### L 500.2500, L100.0100 ####[facility] [address] [place], [address] Hemoglobin (Bld) [Mass/Vol] 13.4 g/dL Normal 12.0-15.0 [facility] Comment on above: Performed By: #### L 500.2500, L100.0100 ####[facility] [address] [place], [address] IG% 1.700 High 0.0-0.9 [facility] Comment on above: Result Comment: IG% - Immature Granulocytes (promyelocytes, myelocytes andmetamyelocytes) > 1% indicates that a LEFT SHIFT is Present. Performed By: #### L 500.2500, L100.0100 ####[facility] [address] [place], [address] Lymphocytes/100 WBC (Bld) 34.4 % Normal 19-41 [facility] Comment on above: Performed By: #### L 500.2500, L100.0100 ####[facility] [address] [place], [address] MCH (RBC) [Entitic mass] 28.6 pg Normal 27.0-32.0 [facility] Comment on above: Performed By: #### L 500.2500, L100.0100 ####[facility] [address] [place], [address] MCHC (RBC) [Mass/Vol] 32.8 g/dL Normal 32-36 [facility] Comment on above: Performed By: #### L 500.2500, L100.0100 ####[facility] [address] [place], [address] MCV (RBC) [Entitic vol] 87.4 fL Normal 81-99 [facility] Comment on above: Performed By: #### L 500.2500, L100.0100 ####[facility] [address] [place], [address] Monocytes/100 WBC (Bld) 10.1 % High 0-10 [facility] Comment on above: Performed By: #### L 500.2500, L100.0100 ####[facility] [address] [place], [address] Neutrophils/100 WBC (Bld) 49.0 % Normal 47-70 [facility] Comment on above: Performed By: #### L 500.2500, L100.0100 ####[facility] [address] [place], [address] Nucleated RBC (Bld) [#/Vol] 0 10*3/uL Normal 0-5 [facility] Comment on above: Performed By: #### L 500.2500, L100.0100 ####[facility] [address] [place], [address] Platelet mean volume (Bld) [Entitic vol] 10.6 fL Normal 6.2-12.0 [facility] Comment on above: Performed By: #### L 500.2500, L100.0100 ####[facility] [address] [place], [address] Platelets (Bld) [#/Vol] 192 10*3/uL Normal 150-450 [facility] Comment on above: Performed By: #### L 500.2500, L100.0100 ####[facility] [address] [place], [address] RBC (Bld) [#/Vol] 4.68 10*6/uL Normal 4.2-5.4 [facility] Comment on above: Performed By: #### L 500.2500, L100.0100 ####[facility] [address] [place], [address] RDW SD 40.6 fl Normal 35.1-43.9 [facility] Comment on above: Performed By: #### L 500.2500, L100.0100 ####[facility] [address] [place], [address] WBC (Bld) [#/Vol] 4.2 10*3/uL Low 4.4-11.0 [facility] Comment on above: Performed By: #### L 500.2500, L100.0100 ####[facility] [address] [place], [address] Vancomycin, Trough Levelon 04-24-2023 VANCO, TROUGH 16.3 ug/mL High 5.0-15.0 [facility] Comment on above: Order Comment: Comme nts: DRAW 30 MIN PRIOR TO [id number] Result Comment: VANC OMYCIN STANDARED DRUG THERAPY TROUGH LEVEL: 5.0 - 15.0 mg/LVANCOMYCIN HIGH INTENSITY THERAPY TROUGH LEVEL: 15.0 - 20.0 mg/LHigh Intensity therapy recommended for serious lifethreatening infections include:- Yssypevtor-Ydlwlbqlcipo-Iifqlqkag (Ventilator/Healtcare Associated)-SepsisPLEASE CONTACT PHARMACY SERVICES (#6724) FOR INTERPRETATIONOF RESULTS. Performed By: #### L 501.8820 ####[facility] [address] [place], [address] Basic Metabolic Profile (BMP )on 02-22-2024 BUN/CRE 29.0 RATIO High 10-20 [facility] Comment on above: Performed By: #### L 100.0100, L500.2500 ####[facility] [address] [place], [address] CA,Total 8.6 mg/dL Normal 8.5-10.1 [facility] Comment on above: Performed By: #### L 100.0100, L500.2500 ####[facility] [address] [place], [address] Chloride [Moles/Vol] 108 mmol/L High 98-107 [facility] Comment on above: Performed By: #### L 100.0100, L500.2500 ####[facility] [address] [place], [address] CO2 [Moles/Vol] 28.0 mmol/L Normal 21.0-32.0 [facility] Comment on above: Performed By: #### L 100.0100, L500.2500 ####[facility] [address] [place], [address] Creatinine [Mass/Vol] 0.45 mg/dL Low 0.55-1.02 [facility] Comment on above: Result Comment: The validity of the calculated GFR GFRAA in patients over70 years has not been determined. Clinical correlation isessential. Performed By: #### L 100.0100, L500.2500 ####[facility] [address] [place], [address] ECRCL 130.10 ml/min Normal [facility] Comment on above: Performed By: #### L 100.0100, L500.2500 ####[facility] [address] [place], [address] EST GFR - AA 188 mL/min Normal >60 [facility] Comment on above: Result Comment: Afri can Japanese GFR Calc Performed By: #### L 100.0100, L500.2500 ####[facility] [address] [place], [address] GAP 4 Low 5-15 [facility] Comment on above: Performed By: #### L 100.0100, L500.2500 ####[facility] [address] [place], [address] GFR/1.73 sq M.predicted among non-blacks MDRD (S/P/Bld) [Vol rate/Area] 156 mL/min/{1.73_m2} Normal >60 [facility] Comment on above: Result Comment: Non- GFR Calc Performed By: #### L 100.0100, L500.2500 ####[facility] [address] [place], [address] Glucose [Mass/Vol] 287 mg/dL High 74-106 [facility] Comment on above: Result Comment: Gluc ose result greater than or equal to 200 mg/dLsuggests DIABETES MELLITUS per A.D.A. criteria. Performed By: #### L 100.0100, L500.2500 ####[facility] [address] [place], [address] Potassium [Moles/Vol] 3.7 mmol/L Normal 3.5-5.1 [facility] Comment on above: Performed By: #### L 100.0100, L500.2500 ####[facility] [address] [place], [address] Sodium [Moles/Vol] 140 mmol/L Normal 136-145 [facility] Comment on above: Performed By: #### L 100.0100, L500.2500 ####[facility] [address] [place], [address] Urea nitrogen [Mass/Vol] 13 mg/dL Normal 7-18 [facility] Comment on above: Performed By: #### L 100.0100, L500.2500 ####[facility] [address] [place], [address] Bedside Glucoseon - FINGERSTICK GLU 309 mg/dL High -[address] [place] [address] Comment on above: Result Comment: DELLA GEMENT OF PATIENT CARE PER NURSING PROTOCOL Performed By: #### L 501.080 ####[facility] [address] [place], [address] FINGERSTICK GLU 297 mg/dL High -106 [facility] Comment on above: Result Comment: DELLA GEMENT OF PATIENT CARE PER NURSING PROTOCOL Performed By: #### L 501.080 ####[facility] [address] [place], [address] FINGERSTICK GLU 387 mg/dL High [address] [place] [address] Comment on above: Result Comment: DELLA GEMENT OF PATIENT CARE PER NURSING PROTOCOL Performed By: #### L 501.080 ####[facility] [address] [place], [address] FINGERSTICK GLU 417 mg/dL High [address] [place] [address] Comment on above: Result Comment: DELLA GEMENT OF PATIENT CARE PER NURSING PROTOCOL Performed By: #### L 501.080 ####[facility] [address] [place], [address] CBC W/Diff, Automatedon 11-0 Absolute Lymph 1.09 X10 3/uL Normal 0.83-4.51 [facility] Comment on above: Performed By: #### L 100.0100, L500.2500 ####[facility] [address] [place], [address] Absolute Neut 2.7 X10 3/uL Normal 2.0-7.7 [facility] Comment on above: Performed By: #### L 100.0100, L500.2500 ####[facility] [address] [place], [address] Basophils/100 WBC (Bld) 0.7 % Normal 0-1 [facility] Comment on above: Performed By: #### L 100.0100, L500.2500 ####[facility] [address] [place], [address] Eosinophils/100 WBC (Bld) 3.1 % Normal 0-5 [facility] Comment on above: Performed By: #### L 100.0100, L500.2500 ####[facility] [address] [place], [address] Erythrocyte distribution width (RBC) [Ratio] 12.7 % Normal 11.6-14.6 [facility] Comment on above: Performed By: #### L 100.0100, L500.2500 ####[facility] [address] [place], [address] Hematocrit (Bld) [Volume fraction] 40.8 % Normal 37-47 [facility] Comment on above: Performed By: #### L 100.0100, L500.2500 ####[facility] [address] [place], [address] Hemoglobin (Bld) [Mass/Vol] 13.6 g/dL Normal 12.0-15.0 [facility] Comment on above: Performed By: #### L 100.0100, L500.2500 ####[facility] [address] [place], [address] IG% 0.900 Normal 0.0-0.9 [facility] Comment on above: Result Comment: IG% - Immature Granulocytes (promyelocytes, myelocytes andmetamyelocytes) > 1% indicates that a LEFT SHIFT is Present. Performed By: #### L 100.0100, L500.2500 ####[facility] [address] [place], [address] Lymphocytes/100 WBC (Bld) 24.2 % Normal 19-41 [facility] Comment on above: Performed By: #### L 100.0100, L500.2500 ####[facility] [address] [place], [address] MCH (RBC) [Entitic mass] 28.8 pg Normal 27.0-32.0 [facility] Comment on above: Performed By: #### L 100.0100, L500.2500 ####[facility] [address] [place], [address] MCHC (RBC) [Mass/Vol] 33.3 g/dL Normal 32-36 [facility] Comment on above: Performed By: #### L 100.0100, L500.2500 ####[facility] [address] [place], [address] MCV (RBC) [Entitic vol] 86.3 fL Normal 81-99 [facility] Comment on above: Performed By: #### L 100.0100, L500.2500 ####[facility] [address] [place], [address] Monocytes/100 WBC (Bld) 10.4 % High 0-10 [facility] Comment on above: Performed By: #### L 100.0100, L500.2500 ####[facility] [address] [place], [address] Neutrophils/100 WBC (Bld) 60.7 % Normal 47-70 [facility] Comment on above: Performed By: #### L 100.0100, L500.2500 ####[facility] [address] [place], [address] Nucleated RBC (Bld) [#/Vol] 0 10*3/uL Normal 0-5 [facility] Comment on above: Performed By: #### L 100.0100, L500.2500 ####[facility] [address] [place], [address] Platelet mean volume (Bld) [Entitic vol] 11.0 fL Normal 6.2-12.0 [facility] Comment on above: Performed By: #### L 100.0100, L500.2500 ####[facility] [address] [place], [address] Platelets (Bld) [#/Vol] 180 10*3/uL Normal 150-450 [facility] Comment on above: Performed By: #### L 100.0100, L500.2500 ####[facility] [address] [place], [address] RBC (Bld) [#/Vol] 4.73 10*6/uL Normal 4.2-5.4 [facility] Comment on above: Performed By: #### L 100.0100, L500.2500 ####[facility] [address] [place], [address] RDW SD 39.8 fl Normal 35.1-43.9 [facility] Comment on above: Performed By: #### L 100.0100, L500.2500 ####[facility] [address] [place], [address] WBC (Bld) [#/Vol] 4.5 10*3/uL Normal 4.4-11.0 [facility] Comment on above: Performed By: #### L 100.0100, L500.2500 ####[facility] [address] [place], [address] Lower Ext Art Exam w/o Exerc shanthi 02-22-2024 Lower Ext Art Exam w/o Exercis Normal [facility] Vancomycin, Trough Levelon 1 04-23-2023 VANCO, TROUGH 6.9 ug/mL Normal 5.0-15.0 [facility] Comment on above: Order Comment: Comme nts: Trough to be drawn 30 mins prior to scheduled [id number] Result Comment: VANC OMYCIN STANDARED DRUG THERAPY TROUGH LEVEL: 5.0 - 15.0 mg/LVANCOMYCIN HIGH INTENSITY THERAPY TROUGH LEVEL: 15.0 - 20.0 mg/LHigh Intensity therapy recommended for serious lifethreatening infections include:- Ssxcaxgdxd-Qwronpxhhjxw-Lakupgbol (Ventilator/Healtcare Associated)-SepsisPLEASE CONTACT PHARMACY SERVICES (#7828) FOR INTERPRETATIONOF RESULTS. Performed By: #### L 501.8820 ####[facility] [address] [place], [address] Acetone Serumon 02-21-2024 ACETONE SERUM Negative Normal NEG [facility] Comment on above: Performed By: #### L 501.6900 ####[facility] [address] [place], [address] Basic Metabolic Profile (BMP )on 02-21-2024 BUN/CRE 19.6 RATIO Normal 10-20 [facility] Comment on above: Performed By: #### L 503.6005, L101.9900, L500.2500, L300.3900, L501.6710, L100.0100 ####[facility] [address] [place], [address] CA,Total 8.7 mg/dL Normal 8.5-10.1 [facility] Comment on above: Performed By: #### L 503.6005, L101.9900, L500.2500, L300.3900, L501.6710, L100.0100 ####[facility] [address] [place], [address] Chloride [Moles/Vol] 100 mmol/L Normal 98-107 [facility] Comment on above: Performed By: #### L 503.6005, L101.9900, L500.2500, L300.3900, L501.6710, L100.0100 ####[facility] [address] [place], [address] CO2 [Moles/Vol] 27.0 mmol/L Normal 21.0-32.0 [facility] Comment on above: Performed By: #### L 503.6005, L101.9900, L500.2500, L300.3900, L501.6710, L100.0100 ####[facility] [address] [place], [address] Creatinine [Mass/Vol] 0.76 mg/dL Normal 0.55-1.02 [facility] Comment on above: Result Comment: The validity of the calculated GFR GFRAA in patients over70 years has not been determined. Clinical correlation isessential. Performed By: #### L 503.6005, L101.9900, L500.2500, L300.3900, L501.6710, L100.0100 ####[facility] [address] [place], [address] ECRCL 77.03 ml/min Normal [facility] Comment on above: Performed By: #### L 503.6005, L101.9900, L500.2500, L300.3900, L501.6710, L100.0100 ####[facility] [address] [place], [address] EST GFR - AA 102 mL/min Normal >60 [facility] Comment on above: Result Comment: Afri can Japanese GFR Calc Performed By: #### L 503.6005, L101.9900, L500.2500, L300.3900, L501.6710, L100.0100 ####[facility] [address] [place], [address] GAP 7 Normal 5-15 [facility] Comment on above: Performed By: #### L 503.6005, L101.9900, L500.2500, L300.3900, L501.6710, L100.0100 ####[facility] [address] [place], [address] GFR/1.73 sq M.predicted among non-blacks MDRD (S/P/Bld) [Vol rate/Area] 84 mL/min/{1.73_m2} Normal >60 [facility] Comment on above: Result Comment: Non- GFR Calc Performed By: #### L 503.6005, L101.9900, L500.2500, L300.3900, L501.6710, L100.0100 ####[facility] [address] [place], [address] Glucose [Mass/Vol] 478 mg/dL Invalid Interpretation Code 74-106 [facility] Comment on above: Result Comment: Crit ical Result(s) Called at: 00:24:56 02/21/2024 by:Sylvester ALFREDO. Results read back by same.Glucose result greater than or equal to 200 mg/dLsuggests DIABETES MELLITUS per A.D.A. criteria. Performed By: #### L 503.6005, L101.9900, L500.2500, L300.3900, L501.6710, L100.0100 ####[facility] [address] [place], [address] Potassium [Moles/Vol] 3.6 mmol/L Normal 3.5-5.1 [facility] Comment on above: Performed By: #### L 503.6005, L101.9900, L500.2500, L300.3900, L501.6710, L100.0100 ####[facility] [address] [place], [address] Sodium [Moles/Vol] 134 mmol/L Low 136-145 [facility] Comment on above: Performed By: #### L 503.6005, L101.9900, L500.2500, L300.3900, L501.6710, L100.0100 ####[facility] [address] [place], [address] Urea nitrogen [Mass/Vol] 15 mg/dL Normal 7-18 [facility] Comment on above: Performed By: #### L 503.6005, L101.9900, L500.2500, L300.3900, L501.6710, L100.0100 ####[facility] [address] [place], [address] Bedside Glucoseon 02-21-2024 FINGERSTICK GLU 357 mg/dL High 74-106 [facility] Comment on above: Result Comment: DELLA GEMENT OF PATIENT CARE PER NURSING PROTOCOL Performed By: #### L 501.080 ####[facility] [address] [place], [address] FINGERSTICK GLU 311 mg/dL High 74-106 [facility] Comment on above: Result Comment: DELLA GEMENT OF PATIENT CARE PER NURSING PROTOCOL Performed By: #### L 501.080 ####[facility] [address] [place], [address] FINGERSTICK GLU 213 mg/dL High 74-106 [facility] Comment on above: Result Comment: DELLA GEMENT OF PATIENT CARE PER NURSING PROTOCOL Performed By: #### L 501.080 ####[facility] [address] [place], [address] FINGERSTICK GLU 408 mg/dL High 74-106 [facility] Comment on above: Result Comment: DELLA GEMENT OF PATIENT CARE PER NURSING PROTOCOL Performed By: #### L 501.080 ####[facility] [address] [place], [address] FINGERSTICK GLU 376 mg/dL High 74-106 [facility] Comment on above: Result Comment: EDLLA GEMENT OF PATIENT CARE PER NURSING PROTOCOL Performed By: #### L 501.080 ####[facility] [address] [place], [address] CBC W/Diff, Automatedon 11-0 8-2024 Absolute Lymph 1.48 X10 3/uL Normal 0.83-4.51 [facility] Comment on above: Performed By: #### L 500.4050, L100.0100, L501.2300, L501.5200 ####[facility] [address] [place], [address] Absolute Neut 3.8 X10 3/uL Normal 2.0-7.7 [facility] Comment on above: Performed By: #### L 500.4050, L100.0100, L501.2300, L501.5200 ####[facility] [address] [place], [address] Basophils/100 WBC (Bld) 0.5 % Normal 0-1 [facility] Comment on above: Performed By: #### L 500.4050, L100.0100, L501.2300, L501.5200 ####[facility] [address] [place], [address] Eosinophils/100 WBC (Bld) 2.4 % Normal 0-5 [facility] Comment on above: Performed By: #### L 500.4050, L100.0100, L501.2300, L501.5200 ####[facility] [address] [place], [address] Erythrocyte distribution width (RBC) [Ratio] 12.7 % Normal 11.6-14.6 [facility] Comment on above: Performed By: #### L 500.4050, L100.0100, L501.2300, L501.5200 ####[facility] [address] [place], [address] Hematocrit (Bld) [Volume fraction] 42.3 % Normal 37-47 [facility] Comment on above: Performed By: #### L 500.4050, L100.0100, L501.2300, L501.5200 ####[facility] [address] [place], [address] Hemoglobin (Bld) [Mass/Vol] 13.6 g/dL Normal 12.0-15.0 [facility] Comment on above: Performed By: #### L 500.4050, L100.0100, L501.2300, L501.5200 ####[facility] [address] [place], [address] IG% 0.500 Normal 0.0-0.9 [facility] Comment on above: Result Comment: IG% - Immature Granulocytes (promyelocytes, myelocytes andmetamyelocytes) > 1% indicates that a LEFT SHIFT is Present. Performed By: #### L 500.4050, L100.0100, L501.2300, L501.5200 ####[facility] [address] [place], [address] Lymphocytes/100 WBC (Bld) 24.0 % Normal 19-41 [facility] Comment on above: Performed By: #### L 500.4050, L100.0100, L501.2300, L501.5200 ####[facility] [address] [place], [address] MCH (RBC) [Entitic mass] 28.2 pg Normal 27.0-32.0 [facility] Comment on above: Performed By: #### L 500.4050, L100.0100, L501.2300, L501.5200 ####[facility] [address] [place], [address] MCHC (RBC) [Mass/Vol] 32.2 g/dL Normal 32-36 [facility] Comment on above: Performed By: #### L 500.4050, L100.0100, L501.2300, L501.5200 ####[facility] [address] [place], [address] MCV (RBC) [Entitic vol] 87.6 fL Normal 81-99 [facility] Comment on above: Performed By: #### L 500.4050, L100.0100, L501.2300, L501.5200 ####[facility] [address] [place], [address] Monocytes/100 WBC (Bld) 10.5 % High 0-10 [facility] Comment on above: Performed By: #### L 500.4050, L100.0100, L501.2300, L501.5200 ####[facility] [address] [place], [address] Neutrophils/100 WBC (Bld) 62.1 % Normal 47-70 [facility] Comment on above: Performed By: #### L 500.4050, L100.0100, L501.2300, L501.5200 ####[facility] [address] [place], [address] Nucleated RBC (Bld) [#/Vol] 0 10*3/uL Normal 0-5 [facility] Comment on above: Performed By: #### L 500.4050, L100.0100, L501.2300, L501.5200 ####[facility] [address] [place], [address] Platelet mean volume (Bld) [Entitic vol] 11.1 fL Normal 6.2-12.0 [facility] Comment on above: Performed By: #### L 500.4050, L100.0100, L501.2300, L501.5200 ####[facility] [address] [place], [address] Platelets (Bld) [#/Vol] 196 10*3/uL Normal 150-450 [facility] Comment on above: Performed By: #### L 500.4050, L100.0100, L501.2300, L501.5200 ####[facility] [address] [place], [address] RBC (Bld) [#/Vol] 4.83 10*6/uL Normal 4.2-5.4 [facility] Comment on above: Performed By: #### L 500.4050, L100.0100, L501.2300, L501.5200 ####[facility] [address] [place], [address] RDW SD 40.5 fl Normal 35.1-43.9 [facility] Comment on above: Performed By: #### L 500.4050, L100.0100, L501.2300, L501.5200 ####[facility] [address] [place], [address] WBC (Bld) [#/Vol] 6.2 10*3/uL Normal 4.4-11.0 [facility] Comment on above: Performed By: #### L 500.4050, L100.0100, L501.2300, L501.5200 ####[facility] [address] [place], [address] Absolute Lymph 1.24 X10 3/uL Normal 0.83-4.51 [facility] Comment on above: Performed By: #### L 503.6005, L101.9900, L500.2500, L300.3900, L501.6710, L100.0100 ####[facility] [address] [place], [address] Absolute Neut 5.5 X10 3/uL Normal 2.0-7.7 [facility] Comment on above: Performed By: #### L 503.6005, L101.9900, L500.2500, L300.3900, L501.6710, L100.0100 ####[facility] [address] [place], [address] Basophils/100 WBC (Bld) 0.9 % Normal 0-1 [facility] Comment on above: Performed By: #### L 503.6005, L101.9900, L500.2500, L300.3900, L501.6710, L100.0100 ####[facility] [address] [place], [address] Eosinophils/100 WBC (Bld) 2.0 % Normal 0-5 [facility] Comment on above: Performed By: #### L 503.6005, L101.9900, L500.2500, L300.3900, L501.6710, L100.0100 ####[facility] [address] [place], [address] Erythrocyte distribution width (RBC) [Ratio] 12.7 % Normal 11.6-14.6 [facility] Comment on above: Performed By: #### L 503.6005, L101.9900, L500.2500, L300.3900, L501.6710, L100.0100 ####[facility] [address] [place], [address] Hematocrit (Bld) [Volume fraction] 47.3 % High 37-47 [facility] Comment on above: Performed By: #### L 503.6005, L101.9900, L500.2500, L300.3900, L501.6710, L100.0100 ####[facility] [address] [place], [address] Hemoglobin (Bld) [Mass/Vol] 15.8 g/dL High 12.0-15.0 [facility] Comment on above: Performed By: #### L 503.6005, L101.9900, L500.2500, L300.3900, L501.6710, L100.0100 ####[facility] [address] [place], [address] IG% 2.900 High 0.0-0.9 [facility] Comment on above: Result Comment: IG% - Immature Granulocytes (promyelocytes, myelocytes andmetamyelocytes) > 1% indicates that a LEFT SHIFT is Present. Performed By: #### L 503.6005, L101.9900, L500.2500, L300.3900, L501.6710, L100.0100 ####[facility] [address] [place], [address] Lymphocytes/100 WBC (Bld) 15.4 % Low 19-41 [facility] Comment on above: Performed By: #### L 503.6005, L101.9900, L500.2500, L300.3900, L501.6710, L100.0100 ####[facility] [address] [place], [address] MCH (RBC) [Entitic mass] 28.8 pg Normal 27.0-32.0 [facility] Comment on above: Performed By: #### L 503.6005, L101.9900, L500.2500, L300.3900, L501.6710, L100.0100 ####[facility] [address] [place], [address] MCHC (RBC) [Mass/Vol] 33.4 g/dL Normal 32-36 [facility] Comment on above: Performed By: #### L 503.6005, L101.9900, L500.2500, L300.3900, L501.6710, L100.0100 ####[facility] [address] [place], [address] MCV (RBC) [Entitic vol] 86.3 fL Normal 81-99 [facility] Comment on above: Performed By: #### L 503.6005, L101.9900, L500.2500, L300.3900, L501.6710, L100.0100 ####[facility] [address] [place], [address] Monocytes/100 WBC (Bld) 10.6 % High 0-10 [facility] Comment on above: Performed By: #### L 503.6005, L101.9900, L500.2500, L300.3900, L501.6710, L100.0100 ####[facility] [address] [place], [address] Neutrophils/100 WBC (Bld) 68.2 % Normal 47-70 [facility] Comment on above: Performed By: #### L 503.6005, L101.9900, L500.2500, L300.3900, L501.6710, L100.0100 ####[facility] [address] [place], [address] Nucleated RBC (Bld) [#/Vol] 0.2 10*3/uL Normal 0-5 [facility] Comment on above: Performed By: #### L 503.6005, L101.9900, L500.2500, L300.3900, L501.6710, L100.0100 ####[facility] [address] [place], [address] Platelet mean volume (Bld) [Entitic vol] 10.9 fL Normal 6.2-12.0 [facility] Comment on above: Performed By: #### L 503.6005, L101.9900, L500.2500, L300.3900, L501.6710, L100.0100 ####[facility] [address] [place], [address] Platelets (Bld) [#/Vol] 250 10*3/uL Normal 150-450 [facility] Comment on above: Performed By: #### L 503.6005, L101.9900, L500.2500, L300.3900, L501.6710, L100.0100 ####[facility] [address] [place], [address] RBC (Bld) [#/Vol] 5.48 10*6/uL High 4.2-5.4 [facility] Comment on above: Performed By: #### L 503.6005, L101.9900, L500.2500, L300.3900, L501.6710, L100.0100 ####[facility] [address] [place], [address] RDW SD 39.3 fl Normal 35.1-43.9 [facility] Comment on above: Performed By: #### L 503.6005, L101.9900, L500.2500, L300.3900, L501.6710, L100.0100 ####[facility] [address] [place], [address] WBC (Bld) [#/Vol] 8.1 10*3/uL Normal 4.4-11.0 [facility] Comment on above: Performed By: #### L 503.6005, L101.9900, L500.2500, L300.3900, L501.6710, L100.0100 ####[facility] [address] [place], [address] CRPon 02-21-2024 C-REACTIVE PROT < 2.90 Normal 0.0-3.0 [facility] Comment on above: Result Comment: C-Re active Protein (CRP) provides useful information for thediagnosis, therapy and monitoring of inflammatory processesand associated diseases. For the evaluation of Relative Riskfor Cardiovascular Disease, a High Sensitivity CRP (HSCRP)should be ordered. Performed By: #### L 503.6005, L101.9900, L500.2500, L300.3900, L501.6710, L100.0100 ####[facility] [address] [place], [address] Comprehensive Metabolic Prof ilon 02-21-2024 Albumin [Mass/Vol] 2.8 g/dL Low 3.2-5.0 [facility] Comment on above: Performed By: #### L 500.4050, L100.0100, L501.2300, L501.5200 ####[facility] [address] [place], [address] Albumin/Globulin [Mass ratio] 1.0 {ratio} Normal 0.9-2.4 [facility] Comment on above: Performed By: #### L 500.4050, L100.0100, L501.2300, L501.5200 ####[facility] [address] [place], [address] ALK P 132 U/L High 45-117 [facility] Comment on above: Performed By: #### L 500.4050, L100.0100, L501.2300, L501.5200 ####[facility] [address] [place], [address] ALT [Catalytic activity/Vol] 81 U/L High 13-56 [facility] Comment on above: Performed By: #### L 500.4050, L100.0100, L501.2300, L501.5200 ####[facility] [address] [place], [address] AST [Catalytic activity/Vol] 54 U/L High 15-37 [facility] Comment on above: Performed By: #### L 500.4050, L100.0100, L501.2300, L501.5200 ####[facility] [address] [place], [address] Bilirubin [Mass/Vol] 0.30 mg/dL Normal 0.20-1.00 [facility] Comment on above: Result Comment: For patients on eltrombopag therapy, use of Dimension [place] TBIL is not recommended. Performed By: #### L 500.4050, L100.0100, L501.2300, L501.5200 ####[facility] [address] [place], [address] BUN/CRE 18.4 RATIO Normal 10-20 [facility] Comment on above: Performed By: #### L 500.4050, L100.0100, L501.2300, L501.5200 ####[facility] [address] [place], [address] CA,Total 8.5 mg/dL Normal 8.5-10.1 [facility] Comment on above: Performed By: #### L 500.4050, L100.0100, L501.2300, L501.5200 ####[facility] [address] [place], [address] Chloride [Moles/Vol] 104 mmol/L Normal 98-107 [facility] Comment on above: Performed By: #### L 500.4050, L100.0100, L501.2300, L501.5200 ####[facility] [address] [place], [address] CO2 [Moles/Vol] 27.0 mmol/L Normal 21.0-32.0 [facility] Comment on above: Performed By: #### L 500.4050, L100.0100, L501.2300, L501.5200 ####[facility] [address] [place], [address] Creatinine [Mass/Vol] 0.60 mg/dL Normal 0.55-1.02 [facility] Comment on above: Result Comment: The validity of the calculated GFR GFRAA in patients over70 years has not been determined. Clinical correlation isessential. Performed By: #### L 500.4050, L100.0100, L501.2300, L501.5200 ####[facility] [address] [place], [address] ECRCL 97.57 ml/min Normal [facility] Comment on above: Performed By: #### L 500.4050, L100.0100, L501.2300, L501.5200 ####[facility] [address] [place], [address] EST GFR - AA 135 mL/min Normal >60 [facility] Comment on above: Result Comment: Afri can Japanese GFR Calc Performed By: #### L 500.4050, L100.0100, L501.2300, L501.5200 ####[facility] [address] [place], [address] GAP 7 Normal 5-15 [facility] Comment on above: Performed By: #### L 500.4050, L100.0100, L501.2300, L501.5200 ####[facility] [address] [place], [address] GFR/1.73 sq M.predicted among non-blacks MDRD (S/P/Bld) [Vol rate/Area] 111 mL/min/{1.73_m2} Normal >60 [facility] Comment on above: Result Comment: Non- GFR Calc Performed By: #### L 500.4050, L100.0100, L501.2300, L501.5200 ####[facility] [address] [place], [address] Globulin (S) [Mass/Vol] 2.7 g/dL Normal 2.2-4.2 [facility] Comment on above: Performed By: #### L 500.4050, L100.0100, L501.2300, L501.5200 ####[facility] [address] [place], [address] Glucose [Mass/Vol] 381 mg/dL High 74-106 [facility] Comment on above: Result Comment: Gluc ose result greater than or equal to 200 mg/dLsuggests DIABETES MELLITUS per A.D.A. criteria. Performed By: #### L 500.4050, L100.0100, L501.2300, L501.5200 ####[facility] [address] [place], [address] Potassium [Moles/Vol] 3.7 mmol/L Normal 3.5-5.1 [facility] Comment on above: Performed By: #### L 500.4050, L100.0100, L501.2300, L501.5200 ####[facility] [address] [place], [address] Sodium [Moles/Vol] 138 mmol/L Normal 136-145 [facility] Comment on above: Performed By: #### L 500.4050, L100.0100, L501.2300, L501.5200 ####[facility] [address] [place], [address] T PROT 5.5 g/dL Low 6.4-8.2 [facility] Comment on above: Performed By: #### L 500.4050, L100.0100, L501.2300, L501.5200 ####[facility] [address] [place], [address] Urea nitrogen [Mass/Vol] 11 mg/dL Normal 7-18 [facility] Comment on above: Performed By: #### L 500.4050, L100.0100, L501.2300, L501.5200 ####[facility] [address] [place], [address] Erythrocyte Sed Rateon 02-20 SED RATE 9 mm/hr Normal 0-30 [facility] Comment on above: Performed By: #### L 503.6005, L101.9900, L500.2500, L300.3900, L501.6710, L100.0100 ####[facility] [address] [place], [address] Foot min 3 Viewson 4 Foot min 3 Views Normal [facility] Gram Stainon 02-21-2024 GS List Antibiotics Las t 48 Hours? Vancomycin List Antibiotics to be Started? Zosyn Gram Stain Rare White Blood Cells No organisms seen Normal [facility] Comment on above: Performed By: #### M 100.3000, M100.2000 ####[facility] [address] [place], [address] H AND P Exam - Hospitaliston 02-21-2024 H&P Exam - Hospitalist Normal [facility] Lactic Acidon 02-21-2024 Lactate [Moles/Vol] 1.5 mmol/L Normal 0.4-1.9 [facility] Comment on above: Order Comment: Y Performed By: #### L 503.6005, L101.9900, L500.2500, L300.3900, L501.6710, L100.0100 ####[facility] [address] [place], [address] Lower Ext/No Jt/w/oon 2023 Lower Ext/No Jt/w/o Normal [facility] MRSA Wound DNA by PCRon MRSA DNA ASSAY Positive Abnormal Negative [facility] Comment on above: Order Comment: Right Foot Ulcer Result Comment: Copy of report sent to Infection Control Printer MS#-[id number]/21/24 0535 ADELFO.RESULTS CALLED TO FREDDIE 02/21/24 0535 Sylvester Mejia.REPORT READ BACK BY SAME. Performed By: #### L 8200.1075 ####[facility] [address] [place], [address] SA DNA ASSAY Positive Abnormal Negative [facility] Comment on above: Order Comment: Right Foot Ulcer Performed By: #### L 8200.1075 ####[facility] [address] [place], [address] Magnesiumon 02-21-2024 Magnesium [Mass/Vol] 1.8 mg/dL Normal 1.6-2.6 [facility] Comment on above: Performed By: #### L 500.4050, L100.0100, L501.2300, L501.5200 ####[facility] [address] [place], [address] Phosphoruson 02-21-2024 Phosphate [Mass/Vol] 3.7 mg/dL Normal 2.5-4.9 [facility] Comment on above: Performed By: #### L 500.4050, L100.0100, L501.2300, L501.5200 ####[facility] [address] [place], [address] Prothrombin Time w/INRon INR Coag (PPP) [Relative time] 1.0 {INR} Normal [facility] Comment on above: Performed By: #### L 503.6005, L101.9900, L500.2500, L300.3900, L501.6710, L100.0100 ####[facility] [address] [place], [address] PT Coag (PPP) [Time] 12.7 s Normal 11.7-14.9 [facility] Comment on above: Performed By: #### L 503.6005, L101.9900, L500.2500, L300.3900, L501.6710, L100.0100 ####[facility] [address] [place], [address] Emergency Department Summary on 02-20-2024 Emergency Department Summary Normal [facility] Culture, Blood (WB)on 2023 CUB Blood cultures x2 fr om two different sites No growth in 5 days. Normal [facility] Comment on above: Performed By: #### M 200.1000 ####[facility] [address] [place], [address] Basic Metabolic Profile (BMP )on 02-10-2024 BUN Normal 7-18 [facility] Comment on above: Result Comment: Canc elled via OM: Order cancelled - Patient discharged Performed By: #### L 500.2500 ####[facility] [address] [place], [address] BUN/CRE Normal 10-20 [facility] Comment on above: Result Comment: Canc elled via OM: Order cancelled - Patient discharged Performed By: #### L 500.2500 ####[facility] [address] [place], [address] CA,Total Normal 8.5-10.1 [facility] Comment on above: Result Comment: Canc elled via OM: Order cancelled - Patient discharged Performed By: #### L 500.2500 ####[facility] [address] [place], [address] CL Normal 98-107 [facility] Comment on above: Result Comment: Canc elled via OM: Order cancelled - Patient discharged Performed By: #### L 500.2500 ####[facility] [address] [place], [address] CO2 Normal 21.0-32.0 [facility] Comment on above: Result Comment: Canc elled via OM: Order cancelled - Patient discharged Performed By: #### L 500.2500 ####[facility] [address] [place], [address] CREAT,SERUM Normal 0.55-1.02 [facility] Comment on above: Result Comment: Canc elled via OM: Order cancelled - Patient discharged Performed By: #### L 500.2500 ####[facility] [address] [place], [address] EST GFR Normal >60 [facility] Comment on above: Result Comment: Canc elled via OM: Order cancelled - Patient discharged Performed By: #### L 500.2500 ####[facility] [address] [place], [address] EST GFR - AA Normal >60 [facility] Comment on above: Result Comment: Canc elled via OM: Order cancelled - Patient discharged Performed By: #### L 500.2500 ####[facility] [address] [place], [address] GAP Normal 5-15 [facility] Comment on above: Result Comment: Canc elled via OM: Order cancelled - Patient discharged Performed By: #### L 500.2500 ####[facility] [address] [place], [address] GLU Normal 74-106 [facility] Comment on above: Result Comment: Canc elled via OM: Order cancelled - Patient discharged Performed By: #### L 500.2500 ####[facility] [address] [place], [address] Potassium Normal 3.5-5.1 [facility] Comment on above: Result Comment: Canc elled via OM: Order cancelled - Patient discharged Performed By: #### L 500.2500 ####[facility] [address] [place], [address] Basic Metabolic Profile (BMP) Normal 136-145 [facility] Comment on above: Result Comment: Canc elled via OM: Order cancelled - Patient discharged Performed By: #### L 500.2500 ####[facility] [address] [place], [address] CBC-Complete Blood Cnt No Di ffon 02-10-2024 HCT Normal 37-47 [facility] Comment on above: Result Comment: Canc elled via OM: Order cancelled - Patient discharged Performed By: #### L 100.0500 ####[facility] [address] [place], [address] HGB Normal 12.0-15.0 [facility] Comment on above: Result Comment: Canc elled via OM: Order cancelled - Patient discharged Performed By: #### L 100.0500 ####[facility] [address] [place], [address] MCH Normal 27.0-32.0 [facility] Comment on above: Result Comment: Canc elled via OM: Order cancelled - Patient discharged Performed By: #### L 100.0500 ####[facility] [address] [place], [address] MCHC Normal 32-36 [facility] Comment on above: Result Comment: Canc elled via OM: Order cancelled - Patient discharged Performed By: #### L 100.0500 ####[facility] [address] [place], [address] MCV Normal 81-99 [facility] Comment on above: Result Comment: Canc elled via OM: Order cancelled - Patient discharged Performed By: #### L 100.0500 ####[facility] [address] [place], [address] PLT Normal 150-450 [facility] Comment on above: Result Comment: Canc elled via OM: Order cancelled - Patient discharged Performed By: #### L 100.0500 ####[facility] [address] [place], [address] RBC Normal 4.2-5.4 [facility] Comment on above: Result Comment: Canc elled via OM: Order cancelled - Patient discharged Performed By: #### L 100.0500 ####[facility] [address] [place], [address] RDW CV Normal 11.6-14.6 [facility] Comment on above: Result Comment: Canc elled via OM: Order cancelled - Patient discharged Performed By: #### L 100.0500 ####[facility] [address] [place], [address] RDW SD Normal 35.1-43.9 [facility] Comment on above: Result Comment: Canc elled via OM: Order cancelled - Patient discharged Performed By: #### L 100.0500 ####[facility] [address] [place], [address] WBC Normal 4.4-11.0 [facility] Comment on above: Result Comment: Canc elled via OM: Order cancelled - Patient discharged Performed By: #### L 100.0500 ####[facility] [address] [place], [address] Bedside Glucoseon 02-09-2024 FINGERSTICK GLU 309 mg/dL High [facility]106 [facility] Comment on above: Result Comment: DELLA GEMENT OF PATIENT CARE PER NURSING PROTOCOL Performed By: #### L 501.080 ####[facility] [address] [place], [address] FINGERSTICK GLU 345 mg/dL High [address] [place] [address] Comment on above: Result Comment: DELLA GEMENT OF PATIENT CARE PER NURSING PROTOCOL Performed By: #### L 501.080 ####[facility] [address] [place], [address] FINGERSTICK GLU 423 mg/dL High [address] [place] [address] Comment on above: Result Comment: DELLA GEMENT OF PATIENT CARE PER NURSING PROTOCOL Performed By: #### L 501.080 ####[facility] [address] [place], [address] CBC W/Diff, Automatedon - Absolute Lymph 1.24 X10 3/uL Normal 0.83-4.51 [facility] Comment on above: Performed By: #### L 501.5200, L501.2300, L500.4050, L100.0100, L501.9520 ####[facility] [address] [place], [address] Absolute Neut 1.9 X10 3/uL Low 2.0-7.7 [facility] Comment on above: Performed By: #### L 501.5200, L501.2300, L500.4050, L100.0100, L501.9520 ####[facility] [address] [place], [address] Basophils/100 WBC (Bld) 1.0 % Normal 0-1 [facility] Comment on above: Performed By: #### L 501.5200, L501.2300, L500.4050, L100.0100, L501.9520 ####[facility] [address] [place], [address] Eosinophils/100 WBC (Bld) 5.1 % High 0-5 [facility] Comment on above: Performed By: #### L 501.5200, L501.2300, L500.4050, L100.0100, L501.9520 ####[facility] [address] [place], [address] Erythrocyte distribution width (RBC) [Ratio] 12.2 % Normal 11.6-14.6 [facility] Comment on above: Performed By: #### L 501.5200, L501.2300, L500.4050, L100.0100, L501.9520 ####[facility] [address] [place], [address] Hematocrit (Bld) [Volume fraction] 38.3 % Normal 37-47 [facility] Comment on above: Performed By: #### L 501.5200, L501.2300, L500.4050, L100.0100, L501.9520 ####[facility] [address] [place], [address] Hemoglobin (Bld) [Mass/Vol] 12.6 g/dL Normal 12.0-15.0 [facility] Comment on above: Performed By: #### L 501.5200, L501.2300, L500.4050, L100.0100, L501.9520 ####[facility] [address] [place], [address] IG% 1.800 High 0.0-0.9 [facility] Comment on above: Result Comment: IG% - Immature Granulocytes (promyelocytes, myelocytes andmetamyelocytes) > 1% indicates that a LEFT SHIFT is Present. Performed By: #### L 501.5200, L501.2300, L500.4050, L100.0100, L501.9520 ####[facility] [address] [place], [address] Lymphocytes/100 WBC (Bld) 31.7 % Normal 19-41 [facility] Comment on above: Performed By: #### L 501.5200, L501.2300, L500.4050, L100.0100, L501.9520 ####[facility] [address] [place], [address] MCH (RBC) [Entitic mass] 28.4 pg Normal 27.0-32.0 [facility] Comment on above: Performed By: #### L 501.5200, L501.2300, L500.4050, L100.0100, L501.9520 ####[facility] [address] [place], [address] MCHC (RBC) [Mass/Vol] 32.9 g/dL Normal 32-36 [facility] Comment on above: Performed By: #### L 501.5200, L501.2300, L500.4050, L100.0100, L501.9520 ####[facility] [address] [place], [address] MCV (RBC) [Entitic vol] 86.5 fL Normal 81-99 [facility] Comment on above: Performed By: #### L 501.5200, L501.2300, L500.4050, L100.0100, L501.9520 ####[facility] [address] [place], [address] Monocytes/100 WBC (Bld) 11.3 % High 0-10 [facility] Comment on above: Performed By: #### L 501.5200, L501.2300, L500.4050, L100.0100, L501.9520 ####[facility] [address] [place], [address] Neutrophils/100 WBC (Bld) 49.1 % Normal 47-70 [facility] Comment on above: Performed By: #### L 501.5200, L501.2300, L500.4050, L100.0100, L501.9520 ####[facility] [address] [place], [address] Nucleated RBC (Bld) [#/Vol] 0 10*3/uL Normal 0-5 [facility] Comment on above: Performed By: #### L 501.5200, L501.2300, L500.4050, L100.0100, L501.9520 ####[facility] [address] [place], [address] Platelet mean volume (Bld) [Entitic vol] 10.1 fL Normal 6.2-12.0 [facility] Comment on above: Performed By: #### L 501.5200, L501.2300, L500.4050, L100.0100, L501.9520 ####[facility] [address] [place], [address] Platelets (Bld) [#/Vol] 198 10*3/uL Normal 150-450 [facility] Comment on above: Performed By: #### L 501.5200, L501.2300, L500.4050, L100.0100, L501.9520 ####[facility] [address] [place], [address] RBC (Bld) [#/Vol] 4.43 10*6/uL Normal 4.2-5.4 [facility] Comment on above: Performed By: #### L 501.5200, L501.2300, L500.4050, L100.0100, L501.9520 ####[facility] [address] [place], [address] RDW SD 38.6 fl Normal 35.1-43.9 [facility] Comment on above: Performed By: #### L 501.5200, L501.2300, L500.4050, L100.0100, L501.9520 ####[facility] [address] [place], [address] WBC (Bld) [#/Vol] 3.9 10*3/uL Low 4.4-11.0 [facility] Comment on above: Performed By: #### L 501.5200, L501.2300, L500.4050, L100.0100, L501.9520 ####[facility] [address] [place], [address] Comprehensive Metabolic [facility] 02-09-2024 Albumin [Mass/Vol] 2.6 g/dL Low 3.2-5.0 [facility] Comment on above: Performed By: #### L 501.5200, L501.2300, L500.4050, L100.0100, L501.9520 ####[facility] [address] [place], [address] Albumin/Globulin [Mass ratio] 0.9 {ratio} Normal 0.9-2.4 [facility] Comment on above: Performed By: #### L 501.5200, L501.2300, L500.4050, L100.0100, L501.9520 ####[facility] [address] [place], [address] ALK P 161 U/L High 45-117 [facility] Comment on above: Performed By: #### L 501.5200, L501.2300, L500.4050, L100.0100, L501.9520 ####[facility] [address] [place], [address] ALT [Catalytic activity/Vol] 111 U/L High 13-56 [facility] Comment on above: Performed By: #### L 501.5200, L501.2300, L500.4050, L100.0100, L501.9520 ####[facility] [address] [place], [address] AST [Catalytic activity/Vol] 55 U/L High 15-37 [facility] Comment on above: Performed By: #### L 501.5200, L501.2300, L500.4050, L100.0100, L501.9520 ####[facility] [address] [place], [address] Bilirubin [Mass/Vol] 0.40 mg/dL Normal 0.20-1.00 [facility] Comment on above: Result Comment: For patients on eltrombopag therapy, use of Dimension [place] TBIL is not recommended. Performed By: #### L 501.5200, L501.2300, L500.4050, L100.0100, L501.9520 ####[facility] [address] [place], [address] BUN/CRE 23.5 RATIO High 10-20 [facility] Comment on above: Performed By: #### L 501.5200, L501.2300, L500.4050, L100.0100, L501.9520 ####[facility] [address] [place], [address] CA,Total 8.3 mg/dL Low 8.5-10.1 [facility] Comment on above: Performed By: #### L 501.5200, L501.2300, L500.4050, L100.0100, L501.9520 ####[facility] [address] [place], [address] Chloride [Moles/Vol] 106 mmol/L Normal 98-107 [facility] Comment on above: Performed By: #### L 501.5200, L501.2300, L500.4050, L100.0100, L501.9520 ####[facility] [address] [place], [address] CO2 [Moles/Vol] 26.0 mmol/L Normal 21.0-32.0 [facility] Comment on above: Performed By: #### L 501.5200, L501.2300, L500.4050, L100.0100, L501.9520 ####[facility] [address] [place], [address] Creatinine [Mass/Vol] 0.55 mg/dL Normal 0.55-1.02 [facility] Comment on above: Result Comment: The validity of the calculated GFR GFRAA in patients over70 years has not been determined. Clinical correlation isessential. Performed By: #### L 501.5200, L501.2300, L500.4050, L100.0100, L501.9520 ####[facility] [address] [place], [address] ECRCL 106.44 ml/min Normal [facility] Comment on above: Performed By: #### L 501.5200, L501.2300, L500.4050, L100.0100, L501.9520 ####[facility] [address] [place], [address] EST GFR - AA 147 mL/min Normal >60 [facility] Comment on above: Result Comment: Afri can Japanese GFR Calc Performed By: #### L 501.5200, L501.2300, L500.4050, L100.0100, L501.9520 ####[facility] [address] [place], [address] GAP 4 Low 5-15 [facility] Comment on above: Performed By: #### L 501.5200, L501.2300, L500.4050, L100.0100, L501.9520 ####[facility] [address] [place], [address] GFR/1.73 sq M.predicted among non-blacks MDRD (S/P/Bld) [Vol rate/Area] 122 mL/min/{1.73_m2} Normal >60 [facility] Comment on above: Result Comment: Non- GFR Calc Performed By: #### L 501.5200, L501.2300, L500.4050, L100.0100, L501.9520 ####[facility] [address] [place], [address] Globulin (S) [Mass/Vol] 2.9 g/dL Normal 2.2-4.2 [facility] Comment on above: Performed By: #### L 501.5200, L501.2300, L500.4050, L100.0100, L501.9520 ####[facility] [address] [place], [address] Glucose [Mass/Vol] 381 mg/dL High 74-106 [facility] Comment on above: Result Comment: Gluc ose result greater than or equal to 200 mg/dLsuggests DIABETES MELLITUS per A.D.A. criteria. Performed By: #### L 501.5200, L501.2300, L500.4050, L100.0100, L501.9520 ####[facility] [address] [place], [address] Potassium [Moles/Vol] 4.0 mmol/L Normal 3.5-5.1 [facility] Comment on above: Performed By: #### L 501.5200, L501.2300, L500.4050, L100.0100, L501.9520 ####[facility] [address] [place], [address] Sodium [Moles/Vol] 136 mmol/L Normal 136-145 [facility] Comment on above: Performed By: #### L 501.5200, L501.2300, L500.4050, L100.0100, L501.9520 ####[facility] [address] [place], [address] T PROT 5.5 g/dL Low 6.4-8.2 [facility] Comment on above: Performed By: #### L 501.5200, L501.2300, L500.4050, L100.0100, L501.9520 ####[facility] [address] [place], [address] Urea nitrogen [Mass/Vol] 13 mg/dL Normal 7-18 [facility] Comment on above: Performed By: #### L 501.5200, L501.2300, L500.4050, L100.0100, L501.9520 ####[facility] [address] [place], [address] Magnesiumon 02-09-2024 Magnesium [Mass/Vol] 1.9 mg/dL Normal 1.6-2.6 [facility] Comment on above: Performed By: #### L 501.5200, L501.2300, L500.4050, L100.0100, L501.9520 ####[facility] [address] [place], [address] Phosphoruson 02-09-2024 Phosphate [Mass/Vol] 3.5 mg/dL Normal 2.5-4.9 [facility] Comment on above: Performed By: #### L 501.5200, L501.2300, L500.4050, L100.0100, L501.9520 ####[facility] [address] [place], [address] Thyroid Stim Hormone (TSH)on 02-09-2024 TSH 0.916 uIU/mL Normal 0.358-3.740 [facility] Comment on above: Performed By: #### L 501.5200, L501.2300, L500.4050, L100.0100, L501.9520 ####[facility] [address] [place], [address] Vancomycin, Trough Levelon VANCO, TROUGH 7.1 ug/mL Normal 5.0-15.0 [facility] Comment on above: Order Comment: Comme nts: Trough to be drawn 30 mins prior to scheduled [id number] Result Comment: VANC OMYCIN STANDARED DRUG THERAPY TROUGH LEVEL: 5.0 - 15.0 mg/LVANCOMYCIN HIGH INTENSITY THERAPY TROUGH LEVEL: 15.0 - 20.0 mg/LHigh Intensity therapy recommended for serious lifethreatening infections include:- Xvifmbzmrz-Embwnfyfsxba-Gtywifswt (Ventilator/Healtcare Associated)-SepsisPLEASE CONTACT PHARMACY SERVICES (#9800) FOR INTERPRETATIONOF RESULTS. Performed By: #### L 501.8820 ####[facility] [address] [place], [address] Basic Metabolic Profile (BMP )on 02-08-2024 BUN/CRE 31.8 RATIO High 02-01 [facility] Comment on above: Performed By: #### L 503.6005, L509.7000, L100.0100, L101.9900, L500.2500, L501.6710 ####[facility] [address] [place], [address] CA,Total 9.1 mg/dL Normal 8.5-10.1 [facility] Comment on above: Performed By: #### L 503.6005, L509.7000, L100.0100, L101.9900, L500.2500, L501.6710 ####[facility] [address] [place], [address] Chloride [Moles/Vol] 102 mmol/L Normal 98-107 [facility] Comment on above: Performed By: #### L 503.6005, L509.7000, L100.0100, L101.9900, L500.2500, L501.6710 ####[facility] [address] [place], [address] CO2 [Moles/Vol] 25.0 mmol/L Normal 21.0-32.0 [facility] Comment on above: Performed By: #### L 503.6005, L509.7000, L100.0100, L101.9900, L500.2500, L501.6710 ####[facility] [address] [place], [address] Creatinine [Mass/Vol] 0.63 mg/dL Normal 0.55-1.02 [facility] Comment on above: Result Comment: The validity of the calculated GFR GFRAA in patients over70 years has not been determined. Clinical correlation isessential. Performed By: #### L 503.6005, L509.7000, L100.0100, L101.9900, L500.2500, L501.6710 ####[facility] [address] [place], [address] ECRCL 92.93 ml/min Normal [facility] Comment on above: Performed By: #### L 503.6005, L509.7000, L100.0100, L101.9900, L500.2500, L501.6710 ####[facility] [address] [place], [address] EST GFR - AA 127 mL/min Normal >60 [facility] Comment on above: Result Comment: Afri can Japanese GFR Calc Performed By: #### L 503.6005, L509.7000, L100.0100, L101.9900, L500.2500, L501.6710 ####[facility] [address] [place], [address] GAP 7 Normal 5-15 [facility] Comment on above: Performed By: #### L 503.6005, L509.7000, L100.0100, L101.9900, L500.2500, L501.6710 ####[facility] [address] [place], [address] GFR/1.73 sq M.predicted among non-blacks MDRD (S/P/Bld) [Vol rate/Area] 105 mL/min/{1.73_m2} Normal >60 [facility] Comment on above: Result Comment: Non- GFR Calc Performed By: #### L 503.6005, L509.7000, L100.0100, L101.9900, L500.2500, L501.6710 ####[facility] [address] [place], [address] Glucose [Mass/Vol] 402 mg/dL High 74-106 [facility] Comment on above: Result Comment: Gluc ose result greater than or equal to 200 mg/dLsuggests DIABETES MELLITUS per A.D.A. criteria. Performed By: #### L 503.6005, L509.7000, L100.0100, L101.9900, L500.2500, L501.6710 ####[facility] [address] [place], [address] Potassium [Moles/Vol] 3.6 mmol/L Normal 3.5-5.1 [facility] Comment on above: Performed By: #### L 503.6005, L509.7000, L100.0100, L101.9900, L500.2500, L501.6710 ####[facility] [address] [place], [address] Sodium [Moles/Vol] 134 mmol/L Low 136-145 [facility] Comment on above: Performed By: #### L 503.6005, L509.7000, L100.0100, L101.9900, L500.2500, L501.6710 ####[facility] [address] [place], [address] Urea nitrogen [Mass/Vol] 20 mg/dL High 7-18 [facility] Comment on above: Performed By: #### L 503.6005, L509.7000, L100.0100, L101.9900, L500.2500, L501.6710 ####[facility] [address] [place], [address] Bedside Glucoseon 02-08-2024 FINGERSTICK GLU 369 mg/dL High 74-106 [facility] Comment on above: Result Comment: DELLA GEMENT OF PATIENT CARE PER NURSING PROTOCOL Performed By: #### L 501.080 ####[facility] [address] [place], [address] FINGERSTICK GLU 357 mg/dL High 74-106 [facility] Comment on above: Result Comment: DELLA GEMENT OF PATIENT CARE PER NURSING PROTOCOL Performed By: #### L 501.080 ####[facility] [address] [place], [address] FINGERSTICK GLU 334 mg/dL High 74-106 [facility] Comment on above: Result Comment: DELLA GEMENT OF PATIENT CARE PER NURSING PROTOCOL Performed By: #### L 501.080 ####[facility] [address] [place], [address] FINGERSTICK GLU 253 mg/dL High 74-106 [facility] Comment on above: Result Comment: DELLA GEMENT OF PATIENT CARE PER NURSING PROTOCOL Performed By: #### L 501.080 ####[facility] [address] [place], [address] CBC W/Diff, Automatedon 01-14 Absolute Lymph 2.81 X10 3/uL Normal 0.83-4.51 [facility] Comment on above: Performed By: #### L 503.6005, L509.7000, L100.0100, L101.9900, L500.2500, L501.6710 ####[facility] [address] [place], [address] Absolute Neut 5.8 X10 3/uL Normal 2.0-7.7 [facility] Comment on above: Performed By: #### L 503.6005, L509.7000, L100.0100, L101.9900, L500.2500, L501.6710 ####[facility] [address] [place], [address] Basophils/100 WBC (Bld) 0.8 % Normal 0-1 [facility] Comment on above: Performed By: #### L 503.6005, L509.7000, L100.0100, L101.9900, L500.2500, L501.6710 ####[facility] [address] [place], [address] Eosinophils/100 WBC (Bld) 0.9 % Normal 0-5 [facility] Comment on above: Performed By: #### L 503.6005, L509.7000, L100.0100, L101.9900, L500.2500, L501.6710 ####[facility] [address] [place], [address] Erythrocyte distribution width (RBC) [Ratio] 12.0 % Normal 11.6-14.6 [facility] Comment on above: Performed By: #### L 503.6005, L509.7000, L100.0100, L101.9900, L500.2500, L501.6710 ####[facility] [address] [place], [address] Hematocrit (Bld) [Volume fraction] 42.6 % Normal 37-47 [facility] Comment on above: Performed By: #### L 503.6005, L509.7000, L100.0100, L101.9900, L500.2500, L501.6710 ####[facility] [address] [place], [address] Hemoglobin (Bld) [Mass/Vol] 14.7 g/dL Normal 12.0-15.0 [facility] Comment on above: Performed By: #### L 503.6005, L509.7000, L100.0100, L101.9900, L500.2500, L501.6710 ####[facility] [address] [place], [address] IG% 1.300 High 0.0-0.9 [facility] Comment on above: Result Comment: IG% - Immature Granulocytes (promyelocytes, myelocytes andmetamyelocytes) > 1% indicates that a LEFT SHIFT is Present. Performed By: #### L 503.6005, L509.7000, L100.0100, L101.9900, L500.2500, L501.6710 ####[facility] [address] [place], [address] Lymphocytes/100 WBC (Bld) 28.6 % Normal 19-41 [facility] Comment on above: Performed By: #### L 503.6005, L509.7000, L100.0100, L101.9900, L500.2500, L501.6710 ####[facility] [address] [place], [address] MCH (RBC) [Entitic mass] 29.2 pg Normal 27.0-32.0 [facility] Comment on above: Performed By: #### L 503.6005, L509.7000, L100.0100, L101.9900, L500.2500, L501.6710 ####[facility] [address] [place], [address] MCHC (RBC) [Mass/Vol] 34.5 g/dL Normal 32-36 [facility] Comment on above: Performed By: #### L 503.6005, L509.7000, L100.0100, L101.9900, L500.2500, L501.6710 ####[facility] [address] [place], [address] MCV (RBC) [Entitic vol] 84.7 fL Normal 81-99 [facility] Comment on above: Performed By: #### L 503.6005, L509.7000, L100.0100, L101.9900, L500.2500, L501.6710 ####[facility] [address] [place], [address] Monocytes/100 WBC (Bld) 9.3 % Normal 0-10 [facility] Comment on above: Performed By: #### L 503.6005, L509.7000, L100.0100, L101.9900, L500.2500, L501.6710 ####[facility] [address] [place], [address] Neutrophils/100 WBC (Bld) 59.1 % Normal 47-70 [facility] Comment on above: Performed By: #### L 503.6005, L509.7000, L100.0100, L101.9900, L500.2500, L501.6710 ####[facility] [address] [place], [address] Nucleated RBC (Bld) [#/Vol] 0 10*3/uL Normal 0-5 [facility] Comment on above: Performed By: #### L 503.6005, L509.7000, L100.0100, L101.9900, L500.2500, L501.6710 ####[facility] [address] [place], [address] Platelet mean volume (Bld) [Entitic vol] 10.6 fL Normal 6.2-12.0 [facility] Comment on above: Performed By: #### L 503.6005, L509.7000, L100.0100, L101.9900, L500.2500, L501.6710 ####[facility] [address] [place], [address] Platelets (Bld) [#/Vol] 269 10*3/uL Normal 150-450 [facility] Comment on above: Performed By: #### L 503.6005, L509.7000, L100.0100, L101.9900, L500.2500, L501.6710 ####[facility] [address] [place], [address] RBC (Bld) [#/Vol] 5.03 10*6/uL Normal 4.2-5.4 [facility] Comment on above: Performed By: #### L 503.6005, L509.7000, L100.0100, L101.9900, L500.2500, L501.6710 ####[facility] [address] [place], [address] RDW SD 36.4 fl Normal 35.1-43.9 [facility] Comment on above: Performed By: #### L 503.6005, L509.7000, L100.0100, L101.9900, L500.2500, L501.6710 ####[facility] [address] [place], [address] WBC (Bld) [#/Vol] 9.8 10*3/uL Normal 4.4-11.0 [facility] Comment on above: Performed By: #### L 503.6005, L509.7000, L100.0100, L101.9900, L500.2500, L501.6710 ####[facility] [address] [place], [address] CRPon 02-08-2024 C-REACTIVE PROT 3.31 mg/L High 0.0-3.0 [facility] Comment on above: Result Comment: C-Re active Protein (CRP) provides useful information for thediagnosis, therapy and monitoring of inflammatory processesand associated diseases. For the evaluation of Relative Riskfor Cardiovascular Disease, a High Sensitivity CRP (HSCRP)should be ordered. Performed By: #### L 503.6005, L509.7000, L100.0100, L101.9900, L500.2500, L501.6710 ####[facility] [address] [place], [place], [id number] Emergency Department Summary on 02-08-2024 Emergency Department Summary Normal [facility] Erythrocyte Sed Rateon 02-07 SED RATE 7 mm/hr Normal 0-30 [facility] Comment on above: Performed By: #### L 503.6005, L509.7000, L100.0100, L101.9900, L500.2500, L501.6710 ####[facility] [address] [place], [place], [id number] Foot min 3 Viewson 4 Foot min 3 Views Normal [facility] H AND P Exam - Hospitaliston 02-08-2024 H&P Exam - Hospitalist Normal [facility] Lactic Acidon 02-08-2024 Lactate [Moles/Vol] 1.1 mmol/L Normal 0.4-1.9 [facility] Comment on above: Order Comment: Y Performed By: #### L 503.6005, L509.7000, L100.0100, L101.9900, L500.2500, L501.6710 ####[facility] [address] [place], [place], [id number] Lower Ext No Joint W/WO Cont on 02-08-2024 Lower Ext No Joint W/WO Cont Normal [facility] M R Staph Aureus DNA by PCRo n 02-08-2024 MRSA DNA ASSAY Positive Abnormal Negative [facility] Comment on above: Performed By: #### L 8200.1000 ####[facility] [address] [facility] [place], [place], [id number] Procalcitoninon 02-08-2024 Procalcitonin 0.18 ng/mL High 0.00-0.09 [facility] Comment on above: Result Comment: A [...] L 503.6005, L509.7000, L100.0100, L101.9900, L500.2500, L501.6710 ####[facility] [address] [facility] [place], [place], [id number] Urine Drug Screen (VISTA)on 02-08-2024 AMPHETAMINES Normal <1000 ng/mL [facility] Comment on above: Result Comment: @DUP LICATE ORDER Performed By: #### L 505.5000 ####[facility] [address] [place], [place], [address] BARBITIURATES Normal < 200 ng/mL [facility] Comment on above: Result Comment: @DUP LICATE ORDER Performed By: #### L 505.5000 ####[facility] [address] [facility] [address] BENZODIAZIPINE Normal < 200 ng/mL [facility] Comment on above: Result Comment: @DUP LICATE ORDER Performed By: #### L 505.5000 ####[facility] [address] [place] [address] COCAINE Normal < 300 ng/mL [facility] Comment on above: Result Comment: @DUP LICATE ORDER Performed By: #### L 505.5000 ####[facility] [address] [place] [address] DRUG CONFIRM Normal [facility] Comment on above: Result Comment: @DUP LICATE ORDER Performed By: #### L 505.5000 ####[facility] [address] [place] [address] ECSTACY Normal < 500 ng/mL [facility] Comment on above: Result Comment: @DUP LICATE ORDER Performed By: #### L 505.5000 ####[facility] [address] [place] [address] METHADONE Normal < 300 ng/mL [facility] Comment on above: Result Comment: @DUP LICATE ORDER Performed By: #### L 505.5000 ####[facility] [address] [place] [address] OPIATES Normal < 300 ng/mL [facility] Comment on above: Result Comment: @DUP LICATE ORDER Performed By: #### L 505.5000 ####[facility] [address] [place] [address] PCP Normal < 25 ng/mL [facility] Comment on above: Result Comment: @DUP LICATE ORDER Performed By: #### L 505.5000 ####[facility] [address] [place] [address] THC Normal < 50 ng/mL [facility] Comment on above: Result Comment: @DUP LICATE ORDER Performed By: #### L 505.5000 ####[facility] [address] [place], [address] VISTA UDS PH Normal [facility] Comment on above: Result Comment: @DUP LICATE ORDER Performed By: #### L 505.5000 ####[facility] [address] [place] [address] AMPHETAMINES Negative Normal <1000 ng/mL [facility] Comment on above: Performed By: #### L 505.5000 ####[facility] [address] [place] [address] BARBITIURATES Negative Normal < 200 ng/mL [facility] Comment on above: Performed By: #### L 505.5000 ####[facility] [address] [place] [address] BENZODIAZIPINE Negative Normal < 200 ng/mL [facility] Comment on above: Performed By: #### L 505.5000 ####[facility] [address] [place] [address] COCAINE Positive Abnormal < 300 ng/mL [facility] Comment on above: Performed By: #### L 505.5000 ####[facility] [address] [place] [address] ECSTACY Negative Normal < 500 ng/mL [facility] Comment on above: Performed By: #### L 505.5000 ####[facility] [address] [place] [address] METHADONE Negative Normal < 300 ng/mL [facility] Comment on above: Performed By: #### L 505.5000 ####[facility] [address] [place] [address] OPIATES Positive Abnormal < 300 ng/mL [facility] Comment on above: Performed By: #### L 505.5000 ####[facility] [address] [place], [address] PCP Negative Normal < 25 ng/mL [facility] Comment on above: Performed By: #### L 505.5000 ####[facility] [address] [place], [address] THC Negative Normal < 50 ng/mL [facility] Comment on above: Performed By: #### L 505.5000 ####[facility] [address] [place], [address] VISTA UDS PH 5 Normal [facility] Comment on above: Performed By: #### L 505.5000 ####[facility] [address] [place], [address] Cult, Bloodon 02-03-2024 Cult, Blood Specimen Description .BLOOD Special Requests Culture NO GROWTH 5 DAYS Report Status FINAL 02/03/2024 Normal [facility] Comment on above: Performed By: #### B CUL2 #### [address] [place] [address] Life Skills Consultant: Rodríguez Suarez MD [facility] 02-03-2024 Cult,Blood Specimen Description .BLOOD Special Requests Culture NO GROWTH 5 DAYS Report Status FINAL 02/03/2024 [facility] Comment on above: Performed By: #### B C ####[address] [address] Lab Director: Rodríguez Suarez MD Cult,Woundon 01-31-2024 [...] Vancomycin <=0.5 SUSCEPTIBLE Doxycycline >=16 RESISTANT Resistant [facility] Comment on above: Performed By: #### W DC ####[place], [place] [phone] Director: Rodríguez Suarez MD C-Reactive Proteinon 024 CRP [Mass/Vol] 3.0 mg/L Normal 0-5 [facility] Comment on above: Performed By: #### P HVBG, LACTIC, PER, LIP, MG, CBC, CP #### [facility] [place] [id number] ( Life Skills Consultant: Yaritza Infante MD #### BH #### [place] [address] Life Skills Consultant: Rodríguez Suarez MD CBC with Diffon 01-29-2024 Abs. Basophil 0.05 k/uL Normal 0.00-0.20 [facility] Comment on above: Performed By: #### C MEENA, SED, PLCON ####[address] [phone] Director: Rodríguez Suarez MD Abs.Imm.Granulocyte 0.14 k/uL Normal 0.00-0.58 [facility] Comment on above: Performed By: #### C MEENA, SED, PLCON ####[address] [place] [phone] Director: Rodríguez Suarez MD Abs.Neutrophil (Seg) 4.94 k/uL Normal 1.80-7.30 [facility] Comment on above: Performed By: #### C BCWD, SED, PLCON ####[address] [place] [phone] Director: Rodríguez Suarez MD Basophils/100 WBC (Bld) 1 % Normal 0.0-2.0 [facility] Comment on above: Performed By: #### C BCWD, SED, PLCON ####[place] [address] Lab Director: Rodríguez Suarez MD Eosinophils (Bld) [#/Vol] 0.18 10*3/uL Normal 0.05-0.50 [facility] Comment on above: Performed By: #### C MEENA, SED, PLCON ####[place] [address] Lab Director: Rodríguez Suarez MD Eosinophils/100 WBC (Bld) 2 % Normal 0-6 [facility] Comment on above: Performed By: #### C MEENA, SED, PLCON ####[place] [address] Lab Director: Rodríguez Suarez MD Erythrocyte distribution width (RBC) [Ratio] 12.1 % Normal 11.5-15.0 [facility] Comment on above: Performed By: #### C BCWD, SED, PLCON ####[place] [phone] Director: Rodríguez Suarez MD Hematocrit (Bld) [Volume fraction] 42.2 % Normal 34.0-48.0 [facility] Comment on above: Performed By: #### C BCWD, SED, PLCON ####[place] [address] [place] [address] Lab Director: Rodríguez Suarez MD Hemoglobin (Bld) [Mass/Vol] 13.9 g/dL Normal 11.5-15.5 [facility] Comment on above: Performed By: #### C BCWD, SED, PLCON ####[place] [address] [place] [phone] Director: Rodríguez Suarez MD Immature granulocytes/100 WBC (Bld) 2 % Normal 0.0-5.0 [facility] Comment on above: Performed By: #### C BCWD, SED, PLCON ####[place] [address] [place] [address] Lab Director: Rodríguez Suarez MD Lymphocytes (Bld) [#/Vol] 1.45 10*3/uL Low 1.50-4.00 [facility] Comment on above: Performed By: #### C BCWD, SED, PLCON ####[place] [address] [place] [address] Lab Director: Rodríguez Suarez MD Lymphocytes/100 WBC (Bld) 19 % Low 20.0-42.0 [facility] Comment on above: Performed By: #### C BCWD, SED, PLCON ####[place] [address] [phone] Lab Director: Rodríguez Suarez MD MCH (RBC) [Entitic mass] 28.7 pg Normal 26.0-35.0 [facility] Comment on above: Performed By: #### C BCWD, SED, PLCON ####[place] [address] [place] [phone] Director: Rodríguez Suarez MD MCHC (RBC) [Mass/Vol] 32.9 g/dL Normal 32.0-34.5 [facility] Comment on above: Performed By: #### C BCWD, SED, PLCON ####[place] [address] [place] [address] Lab Director: Rodríguez Suarez MD MCV (RBC) [Entitic vol] 87.2 fL Normal 80.0-99.9 [facility] Comment on above: Performed By: #### C BCHUDSON, SED, PLCON ####[address] [place] [address] Lab Director: Rodríguez Suarez MD Monocytes (Bld) [#/Vol] 0.77 10*3/uL Normal 0.10-0.95 [facility] Comment on above: Performed By: #### C MEENA, SED, PLCON ####[place] [address] [place] [address] Lab Director: Rodríguez Suarez MD Monocytes/100 WBC (Bld) 10 % Normal 2.0-12.0 [facility] Comment on above: Performed By: #### C MEENA, SED, PLCON ####[address] [place] [address] Lab Director: Rodríguez Suarez MD Neutrophil (Seg) 66 % Normal 43.0-80.0 [facility] Comment on above: Performed By: #### C BCHUDSON, SED, PLCON ####[address] [place] [address] Lab Director: Rodríguez Suarez MD Platelet mean volume (Bld) [Entitic vol] 11.3 fL Normal 7.0-12.0 [facility] Comment on above: Performed By: #### C BCWD, SED, PLCON ####[facility] [place] [address] Lab Director: Rodríguez Suarez MD Platelet, Fluoresc. 191 k/uL Normal 130-450 [facility] Comment on above: Performed By: #### C BCWD, SED, PLCON ####[facility] [place] [address] Lab Director: Rodríguez Suarez MD RBC (Bld) [#/Vol] 4.84 10*6/uL Normal 3.50-5.50 [facility] Comment on above: Performed By: #### C BCWD, SED, PLCON ####[place] [address] [place] [address] Lab Director: Rodríguez Suarez MD WBC (Bld) [#/Vol] 7.5 10*3/uL Normal 4.5-11.5 [facility] Comment on above: Performed By: #### C BCWD, SED, PLCON ####[place] [address] [place] [address] Lab Director: Rodríguez Suarez MD Comp Metabolic Profon 2023 Albumin [Mass/Vol] 3.5 g/dL Normal 3.5-5.2 [facility] Comment on above: Performed By: #### C P, CRP ####[place] [address] [place] [address] Lab Director: Rodríguez Suarez MD Alkaline Phos 214 U/L High 35-104 [facility] Comment on above: Performed By: #### C P, CRP ####[place] [address] [place] [address] Lab Director: Rodríguez Suarez MD ALT [Catalytic activity/Vol] 163 U/L High 0-32 [facility] Comment on above: Performed By: #### C P, CRP ####[address] [place] [address] Lab Director: Rodríguez Suarez MD Anion gap [Moles/Vol] 9 mmol/L Normal 7-16 [facility] Comment on above: Performed By: #### C P, CRP ####[address] [address] Lab Director: Rodríguez Suarez MD AST [Catalytic activity/Vol] 85 U/L High 0-31 [facility] Comment on above: Performed By: #### C P, CRP ####[address] [place] [address] Lab Director: Rodríguez Suarez MD Bilirubin [Mass/Vol] 0.4 mg/dL Normal 0.0-1.2 [facility] Comment on above: Performed By: #### C P, CRP ####[address] [place] [address] Lab Director: Rodríguez Suarez MD Calcium [Mass/Vol] 8.7 mg/dL Normal 8.6-10.2 [facility] Comment on above: Performed By: #### C P, CRP ####[address] [place] [address] Lab Director: Rodríguez Suarez MD Chloride [Moles/Vol] 104 mmol/L Normal 98-107 [facility] Comment on above: Performed By: #### C P, CRP ####[place] [address] [facility] [phone] Director: Rodríguez Suarez MD CO2 [Moles/Vol] 26 mmol/L Normal 22-29 [facility] Comment on above: Performed By: #### C P, CRP ####[address], [place] [phone] Director: Rodríguez Suarez MD Creatinine [Mass/Vol] 0.4 mg/dL Low 0.50-1.00 [facility] Comment on above: Performed By: #### C P, CRP ####[address], [place] [phone] Director: Rodríguez Suarez MD GFR/1.73 sq M.predicted among non-blacks MDRD (S/P/Bld) [Vol rate/Area] mL/min/{1.73_m2} Normal >60 [facility] Comment on above: Result Comment: These [...] secretion. Performed By: #### C P, CRP ####[address], [place] [phone] Director: Rodríguez Suarez MD Glucose [Mass/Vol] 311 mg/dL High 74-99 [facility] Comment on above: Performed By: #### C P, CRP ####[address], [place] [phone] Director: Rodríguez Suarez MD Potassium [Moles/Vol] 3.9 mmol/L Normal 3.5-5.0 [facility] Comment on above: Performed By: #### C P, CRP ####[address], [place] [phone] Director: Rodríguez Suarez MD Protein [Mass/Vol] 6.2 g/dL Low 6.4-8.3 [facility] Comment on above: Performed By: #### C P, CRP ####[place] [address] [place] [address] Lab Director: Rodríguez Suarez MD Sodium [Moles/Vol] 139 mmol/L Normal 132-146 [facility] Comment on above: Performed By: #### C P, CRP ####[address] [place] [address] Lab Director: Rodríguez Suarez MD Urea nitrogen [Mass/Vol] 17 mg/dL Normal 6-20 [facility] Comment on above: Performed By: #### C P, CRP ####[address] [place] [address] Lab Director: Rodríguez Suarez MD Drug Scr, Abuse, Uron 2023 Amphetamine(s),Ur Negative Normal NEG [facility] Comment on above: Result Comment: Cuto ff: 1000 ng/mL Performed By: #### D AU ####[address] [place] [address] Lab Director: Rodríguez Suarez MD Barbiturate(s),Ur Negative Normal NEG [facility] Comment on above: Result Comment: Cuto ff: 200 ng/ml Performed By: #### D AU ####[address] [place] [address] Lab Director: Rodríguez Suarez MD Benzodiazepine(s) Negative Normal NEG [facility] Comment on above: Result Comment: Cuto ff: 200 ng/ml Performed By: #### D AU ####[address] [place] [address] Lab Director: Rodríguez Suarez MD Buprenorphrine, Ur Negative Normal NEG [facility] Comment on above: Result Comment: Cuto ff: 5 ng/ml Performed By: #### D AU ####[place] [address], [place] [phone] Director: Rodríguez Suarez MD Cannabinoid(s),Ur Negative Normal NEG [facility] Comment on above: Result Comment: Cuto ff: 50 ng/ml Performed By: #### D AU ####[address], [place] [phone] Director: Rodríguez Suarez MD Cocaine Metabolite Negative Normal NEG [facility] Comment on above: Result Comment: Cuto ff: 300 ng/ml Performed By: #### D AU ####[address], [place] [phone] Director: Rodríguez Suarez MD Fentanyl, Urine Negative Normal NEG [facility] Comment on above: Result Comment: Cuto ff: 1.0 ng/ml Performed By: #### D AU ####[address] [place] [address] Lab Director: Rodríguez Suarez MD Interpretive Info These drug screen results are for medical purposes only and should not be Normal [facility] Comment on above: Result Comment: cons idered definitive or confirmed. The drug methodology concentration value must be greater than or equal to the cutoff to be reported as positive. Confirmtory testing orders and/or interpretive sceening questions can be directed to toxicology at [phone]. The absence of expected drug(s) and/or metabolite(s) may be due to inappropriate timing of specimen collection relative to drug administration, poor drug absorption, diluted/adulterated urine, or limitations of screening methodology. Performed By: #### D AU ####[address], [place] [phone] Director: Rodríguez Suarez MD Methadone Ql (U) Negative Normal NEG [facility] Comment on above: Result Comment: Cuto ff: 300 ng/ml Performed By: #### D AU ####[place] [address], [place] [phone] Director: Rodríguez Suarez MD Opiate(s), Ur Negative Normal NEG [facility] Comment on above: Result Comment: Cuto ff: 300 ng/ml Note: The Opiate screen is not intended to detect Oxycodone. Performed By: #### D AU ####[address] [place] [address] Lab Director: Rodríguez Suarez MD Oxycodone, Urine Negative Normal NEG [facility] Comment on above: Result Comment: Cuto ff: 100 ng/ml Performed By: #### D AU ####[address] [place] [address] Lab Director: Rodríguez Suarez MD Phencyclidine, Ur Negative Normal NEG [facility] Comment on above: Result Comment: Cuto ff: 25 ng/ml Performed By: #### D AU ####[address] [place] [address] Lab Director: Rodríguez Suarez MD Platelet Confirmationon 01-13 Platelet Confirmation The automated plat elet count may be artifactually decreased due to platelet Normal [facility] Comment on above: Result Comment: clum ping. Performed By: #### C MEENA, SED, PLCON ####[address] [place] [address] Lab Director: Rodríguez Suarez MD Sedimentation Rateon 16-2 024 Sedimentation Rate 9 mm/Hr Normal 0-20 [facility] Comment on above: Performed By: #### C BCHUDSON, SED, PLCON ####[facility] [place] [address] lab Director: Rodríguez Suarez MD XR FOOT [...] by: Mc Pepper MD Signed by: Mc Pepepr MD 01/29/24 Final result Normal [facility] Comment on above: Order Comment: Reaso [...] Cristina José MD 01/23/24 Final result Normal [facility] Comment on above: Order Comment: Reaso n for exam:->OSTEO CBC W Auto Differential pane l (Bld)on 01-12-2024 Basophils (Bld) [#/Vol] 10*3/uL Normal <0.11 [facility] Comment on above: Order Comment: Speci men Type: URINE SPECIMEN Ordering Facility: [facility] Address: [address] [place] [address] Performed By: #### 2 4356-8 #### [facility] CLIA [id number] [address] [place] [address] [place] Basophils/100 WBC (Bld) 0.5 % Normal [facility] Comment on above: Order Comment: Speci men Type: URINE SPECIMEN Ordering Facility: [facility] Address: [address] [place] [address] Performed By: #### 2 4356-8 #### [facility] CLIA [id number] [address] [place] [address] [place] Differential cell count method Nom (Bld) Auto Normal [facility] Comment on above: Order Comment: Speci men Type: URINE SPECIMEN Ordering Facility: [facility] Address: [address] [place] [address] Performed By: #### 2 4356-8 #### [facility] CLIA [id number] [address] [place] [address] [place] Eosinophils (Bld) [#/Vol] 0.14 10*3/uL Normal <0.46 [facility] Comment on above: Order Comment: Speci men Type: URINE SPECIMEN Ordering Facility: [facility] Address: [address] [place] [address] Performed By: #### 2 4356-8 #### [facility] CLIA [id number] [address] [place] [address] [place] Eosinophils/100 WBC (Bld) 3.2 % Normal [facility] Comment on above: Order Comment: Speci men Type: URINE SPECIMEN Ordering Facility: [facility] Address: [address] [place] [address] Performed By: #### 2 4356-8 #### [facility] CLIA [id number] [address] [place] [address] [place] Erythrocyte distribution width (RBC) [Ratio] 12.4 % Normal 11.5-15.0 [facility] Comment on above: Order Comment: Speci men Type: URINE SPECIMEN Ordering Facility: [facility] Address: [address] [place] [address] Performed By: #### 2 4356-8 #### [facility] CLIA [id number] [address] [place] [address] [place] Hematocrit (Bld) [Volume fraction] 39.8 % Normal 36.0-46.0 [facility] Comment on above: Order Comment: Speci men Type: URINE SPECIMEN Ordering Facility: [facility] Address: [address] [place] [address] Performed By: #### 2 4356-8 #### [facility] CLIA [id number] [address] [place] [address] [place] Hemoglobin (Bld) [Mass/Vol] 13.2 g/dL Normal 11.5-15.5 [facility] Comment on above: Order Comment: Speci men Type: URINE SPECIMEN Ordering Facility: [facility] Address: [address] [place] [address] Performed By: #### 2 4356-8 #### [facility] CLIA [id number] [address] [place] [address] [place] Immature granulocytes (Bld) [#/Vol] 0.07 10*3/uL Normal <0.10 [facility] Comment on above: Order Comment: Speci men Type: URINE SPECIMEN Ordering Facility: [facility] Address: [address] [place] [address] Performed By: #### 2 4356-8 #### [facility] CLIA [id number] [address] [place] [address] [place] Immature granulocytes/100 WBC (Bld) 1.6 % Normal [facility] Comment on above: Order Comment: Speci men Type: URINE SPECIMEN Ordering Facility: [facility] Address: [address] [place] [address] Performed By: #### 2 4356-8 #### [facility] CLIA [id number] [address] [place] [address] [place] Lymphocytes (Bld) [#/Vol] 1.15 10*3/uL Normal 1.00-4.00 [facility] Comment on above: Order Comment: Speci men Type: URINE SPECIMEN Ordering Facility: [facility] Address: [address] [place] [address] Performed By: #### 2 4356-8 #### [facility] CLIA [id number] [address] [place] [address] [place] Lymphocytes/100 WBC (Bld) 26.1 % Normal [facility] Comment on above: Order Comment: Speci men Type: URINE SPECIMEN Ordering Facility: [facility] Address: [address] [place] [address] Performed By: #### 2 4356-8 #### [facility] CLIA [id number] [address] [place] [address] [place] MCH (RBC) [Entitic mass] 29.2 pg Normal 26.0-34.0 [facility] Comment on above: Order Comment: Speci men Type: URINE SPECIMEN Ordering Facility: [facility] Address: [address] [place] [address] Performed By: #### 2 4356-8 #### [facility] CLIA [id number] [address] [place] [address] [place] MCHC (RBC) [Mass/Vol] 33.2 g/dL Normal 30.5-36.0 [facility] Comment on above: Order Comment: Speci men Type: URINE SPECIMEN Ordering Facility: [facility] Address: [address] [place] [address] Performed By: #### 2 4356-8 #### [facility] CLIA [id number] [address] [place] [address] [place] MCV (RBC) [Entitic vol] 88.1 fL Normal 80.0-100.0 [facility] Comment on above: Order Comment: Speci men Type: URINE SPECIMEN Ordering Facility: [facility] Address: [address] [place] [address] Performed By: #### 2 4356-8 #### [facility] CLIA [id number] [address] [place] [address] [place] Monocytes (Bld) [#/Vol] 0.46 10*3/uL Normal <0.87 [facility] Comment on above: Order Comment: Speci men Type: URINE SPECIMEN Ordering Facility: [facility] Address: [address] [place] [address] Performed By: #### 2 4356-8 #### [facility] CLIA [id number] [address] [place] [address] [place] Monocytes/100 WBC (Bld) 10.5 % Normal [facility] Comment on above: Order Comment: Speci men Type: URINE SPECIMEN Ordering Facility: [facility] Address: [facility] [place] [address] Performed By: #### 2 4356-8 #### [facility] CLIA [id number] [address] [place] [address] [place] Neutrophils (Bld) [#/Vol] 2.56 10*3/uL Normal 1.45-7.50 [facility] Comment on above: Order Comment: Speci men Type: URINE SPECIMEN Ordering Facility: [facility] Address: [address] [place] [address] Performed By: #### 2 4356-8 #### [facility] CLIA [id number] [address] [place] [address] [place] Neutrophils/100 WBC (Bld) 58.1 % Normal [facility] Comment on above: Order Comment: Speci men Type: URINE SPECIMEN Ordering Facility: [facility] Address: [address] [place] [address] Performed By: #### 2 4356-8 #### [facility] CLIA [id number] [address] [place] [address] [place] Nucleated RBC (Bld) [#/Vol] 10*3/uL Normal <0.01 [facility] Comment on above: Order Comment: Speci men Type: URINE SPECIMEN Ordering Facility: [facility] Address: [facility] [place] [address] Performed By: #### 2 4356-8 #### [facility] CLIA [id number] [address] [place], [place] [address] [place] Nucleated RBC/100 WBC (Bld) [Ratio] 0.0 /[address] [facility] Comment on above: Order Comment: Speci men Type: URINE SPECIMEN Ordering Facility: [facility] Address: [address] [place] [address] Performed By: #### 2 4356-8 #### [facility] CLIA [id number] [address] [place] [address] [place] Platelet mean volume (Bld) [Entitic vol] 10.5 fL Normal 9.0-12.7 [facility] Comment on above: Order Comment: Speci men Type: URINE SPECIMEN Ordering Facility: [facility] Address: [address] [place] [address] Performed By: #### 2 4356-8 #### [facility] CLIA [id number] [address] [place] [address] [place] Platelets (Bld) [#/Vol] 154 10*3/uL Normal 150-400 [facility] Comment on above: Order Comment: Speci men Type: URINE SPECIMEN Ordering Facility: [facility] Address: [address] [place] [address] Performed By: #### 2 4356-8 #### [facility] CLIA [id number] [address] [place] [address] [place] RBC (Bld) [#/Vol] 4.52 10*6/uL Normal 3.90-5.20 [facility] Comment on above: Order Comment: Speci men Type: URINE SPECIMEN Ordering Facility: [facility] Address: [address] [place] [address] Performed By: #### 2 4356-8 #### [facility] CLIA [id number] [address] [place] [address] [place] WBC (Bld) [#/Vol] 4.40 10*3/uL Normal 3.70-11.00 [facility] Comment on above: Order Comment: Speci men Type: URINE SPECIMEN Ordering Facility: [facility] Address: [address] [place] [address] Performed By: #### 2 4356-8 #### [facility] CLIA [id number] [address] [place], [place] [address] [facility] Comprehensive metabolic 2000 panelon 01-12-2024 Albumin [Mass/Vol] 2.8 g/dL Low 3.2-5.0 [facility] Comment on above: Order Comment: Speci men Type: URINE SPECIMEN Ordering Facility: [facility] Address: [address] [place] [address] Performed By: #### 2 4356-8 #### [facility] CLIA [id number] [address] [place] [address] [place] ALP [Catalytic activity/Vol] 203 U/L High 45-117 [facility] Comment on above: Order Comment: Speci men Type: URINE SPECIMEN Ordering Facility: [facility] Address: [address] [place] [address] Performed By: #### 2 4356-8 #### [facility] CLIA [id number] [address] [place], [place] [address] [place] ALT [Catalytic activity/Vol] 296 U/L High 13-61 [facility] Comment on above: Order Comment: Speci men Type: URINE SPECIMEN Ordering Facility: [facility] Address: [address] [place] [address] Result Comment: Resu lts may be falsely depressed after the administration of Sulfasalazine and/or Sulfapyridine. Performed By: #### 2 4356-8 #### [facility] CLIA [id number] [address] [place], [place] [address] [place] Anion gap [Moles/Vol] 5 mmol/L Normal 5-16 [facility] Comment on above: Order Comment: Speci men Type: URINE SPECIMEN Ordering Facility: [facility] Address: [address] [place] [address] Performed By: #### 2 4356-8 #### [facility] CLIA [id number] [address] [place] [address] [place] AST [Catalytic activity/Vol] 186 U/L High 8-34 [facility] Comment on above: Order Comment: Speci men Type: URINE SPECIMEN Ordering Facility: [facility] Address: [address] [place] [address] Result Comment: Resu lts may be falsely depressed after the administration of Sulfasalazine and/or Sulfapyridine. Performed By: #### 2 4356-8 #### [facility] CLIA [id number] [address] [place] [address] [place] Bilirubin [Mass/Vol] 0.3 mg/dL Normal 0.2-1.0 [facility] Comment on above: Order Comment: Speci men Type: URINE SPECIMEN Ordering Facility: [facility] Address: [address] [place] [address] Performed By: #### 2 4356-8 #### [facility] CLIA [id number] [address] [place] [address] [place] Calcium [Mass/Vol] 9.7 mg/dL Normal 8.5-10.5 [facility] Comment on above: Order Comment: Speci men Type: URINE SPECIMEN Ordering Facility: [facility] Address: [address] [place] [address] Performed By: #### 2 4356-8 #### [facility] CLIA [id number] [address] [place] [address] [place] Chloride [Moles/Vol] 107 mmol/L Normal 98-107 [facility] Comment on above: Order Comment: Speci men Type: URINE SPECIMEN Ordering Facility: [facility] Address: [address] [place] [address] Performed By: #### 2 4356-8 #### [facility] CLIA [id number] [address] [place], [place] [address] [place] CO2 [Moles/Vol] 29 mmol/L Normal 21-32 [facility] Comment on above: Order Comment: Speci men Type: URINE SPECIMEN Ordering Facility: [facility] Address: [address] [place] [address] Performed By: #### 2 4356-8 #### [facility] CLIA [id number] [address] [place] [address] [place] Creatinine [Mass/Vol] 0.35 mg/dL Low 0.51-0.95 [facility] Comment on above: Order Comment: Speci men Type: URINE SPECIMEN Ordering Facility: [facility] Address: [address] [place] [address] Result Comment: Camila ents receiving either N-Acetylcysteine (NAC) or Metamizole prior to venipuncture, may have falsely depressed results. Performed By: #### 2 4356-8 #### [facility] CLIA [id number] [address] [place] [address] [place] Creatinine and Glomerular filtration rate.predicted panel (S/P/Bld) 122 mL/min/1.73m??? Normal >=60 [facility] Comment on above: Order Comment: Speci men Type: URINE SPECIMEN Ordering Facility: [facility] Address: [address] [place] [address] Result Comment: Ivis mated Glomerular Filtration Rate [...] GFR. Performed By: #### 2 4356-8 #### [facility] CLIA [id number] [address] [place] [address] [place] Glucose [Mass/Vol] 394 mg/dL High 70-100 [facility] Comment on above: Order Comment: Speci men Type: URINE SPECIMEN Ordering Facility: [facility] Address: [address] [place] [address] Result Comment: The [place] Diabetes Association (ADA) provides guidance for cutoff [...] Standards of Medical Care in Diabetes 2016, [place] Diabetes Association. Diabetes Care. 2016.39(Suppl 1). Results may be falsely elevated after the administration of Sulfapyridine. Results may be falsely depressed after the administration of Sulfasalazine. Performed By: #### 2 4356-8 #### [facility] CLIA [id number] [address] [place] [address] [place] Potassium [Moles/Vol] 4.1 mmol/L Normal 3.5-5.1 [facility] Comment on above: Order Comment: Speci men Type: URINE SPECIMEN Ordering Facility: [facility] Address: [address] [place] [address] Performed By: #### 2 4356-8 #### [facility] CLIA [id number] [address] [place] [address] [place] Protein [Mass/Vol] 5.7 g/dL Low 6.0-8.5 [facility] Comment on above: Order Comment: Speci men Type: URINE SPECIMEN Ordering Facility: [facility] Address: [address] [place] [address] Performed By: #### 2 4356-8 #### [facility] CLIA [id number] [address] [place] [address] [place] Sodium [Moles/Vol] 141 mmol/L Normal 136-145 [facility] Comment on above: Order Comment: Speci men Type: URINE SPECIMEN Ordering Facility: [facility] Address: [address] [place] [address] Performed By: #### 2 4356-8 #### [facility] CLIA [id number] [address] [place] [address] [place] Urea nitrogen [Mass/Vol] 17 mg/dL Normal - [facility] Comment on above: Order Comment: Speci men Type: URINE SPECIMEN Ordering Facility: [facility] Address: [address] [place] [address] Performed By: #### 2 4356-8 #### [facility] CLIA [id number] [address] [place], [place] [address] [place] ED NOTEon 01-12-2024 ED NOTE HNO ID: [id number] Author: SUMAN MCNEILL RN Service: Nursing Author Type: Registered Nurse Type: ED Notes Filed: 01/12/2024 23:56 Note Text: Report called to [facility] spoke with Kelly MALCOLM. Normal [facility] ED PROV NOTEon 01-12-2024 ED PROV NOTE HNO ID: [id number] Author: LAILA HERNANDEZ DO Service: ? Author Type: Physician Type: ED Provider Notes Filed: 01/12/2024 23:45 Note Text: ED Provider Note Patient Name: Ana Cristina Thomas : 1970 SERVICE DATE: 01/12/24 History Patient presents with: High Blood Sugar: Pt brought in from [facility] with reports of polyuria, polydipsia, hyperglycemia. Pt has a history of DKA. Patient is a 53-year-old female presenting from [facility] secondary to hyperglycemia issues. Patient is a [...] exam SUBTOTAL/TOTAL HYSTERECTOMY AFTER C-SEC 03/31/2010 Hysterectomy, [facility] Dr. Rhoades FAMILY HISTORY Problem Relation Age of Onset Hypertension Father Arthritis Mother Diabetes Father Cancer Father Stockdale's Disease, dementia Osteoporosis Mother Cancer Other great [...] f (more content not included)... Normal [facility] Gas and Carbon monoxide pane l (BldV)on 01-12-2024 Base excess Calc (BldV) [Moles/Vol] 3 mmol/L High 0-2 [facility] Comment on above: Order Comment: Speci men Type: URINE SPECIMEN Ordering Facility: [facility] Address: [address] [place] [address] Performed By: #### 2 4356-8 #### [facility] CLIA [id number] [address] [place] [address] [place] Body temperature 98.6 [degF] Normal [facility] Comment on above: Order Comment: Speci men Type: URINE SPECIMEN Ordering Facility: [facility] Address: [address] [place] [address] Performed By: #### 2 4356-8 #### [facility] CLIA [id number] [address] [place] [address] [place] Calcium.ionized (Bld) [Mass/Vol] 1.18 mmol/L Normal 1.08-1.30 [facility] Comment on above: Order Comment: Speci men Type: URINE SPECIMEN Ordering Facility: [facility] Address: [address] [place] [address] Performed By: #### 2 4356-8 #### [facility] CLIA [id number] [address] [place] [address] [place] Carboxyhemoglobin (BldV) [Mass fraction] 1.1 % Normal 0.0-2.0 [facility] Comment on above: Order Comment: Speci men Type: URINE SPECIMEN Ordering Facility: [facility] Address: [address] [place] [address] Result Comment: Carb oxyhemoglobin Reference Range for Smokers: 2.0-8.0% Performed By: #### 2 4356-8 #### [facility] CLIA [id number] [address] [place] [address] [place] CO2 (BldV) [Partial pressure] 47 mm[Hg] Normal 42-55 [facility] Comment on above: Order Comment: Speci men Type: URINE SPECIMEN Ordering Facility: [facility] Address: [address] [place] [address] Performed By: #### 2 4356-8 #### [facility] CLIA [id number] [address] [place], [place] [address] [place] Glucose [Mass/Vol] 414 mg/dL High 60-105 [facility] Comment on above: Order Comment: Speci men Type: URINE SPECIMEN Ordering Facility: [facility] Address: [address] [place] [address] Performed By: #### 2 4356-8 #### [facility] CLIA [id number] [address] [place], [place] [address] [place] HCO3 (Bld) [Moles/Vol] 29 mmol/L High 24-28 [facility] Comment on above: Order Comment: Speci men Type: URINE SPECIMEN Ordering Facility: [facility] Address: [address] [place] [address] Performed By: #### 2 4356-8 #### [facility] CLIA [id number] [address] [place] [address] [place] Hemoglobin (Bld) [Mass/Vol] 14.1 g/dL Normal 11.5-15.5 [facility] Comment on above: Order Comment: Speci men Type: URINE SPECIMEN Ordering Facility: [facility] Address: [address] [place] [address] Performed By: #### 2 4356-8 #### [facility] CLIA [id number] [address] [place] [address] [place] Lactate [Moles/Vol] 2.4 mmol/L High 0.5-2.2 [facility] Comment on above: Order Comment: Speci men Type: URINE SPECIMEN Ordering Facility: [facility] Address: [address] [place] [address] Performed By: #### 2 4356-8 #### [facility] CLIA [id number] [address] [place] [address] [place] Methemoglobin (Bld) [Mass fraction] 0.3 % Normal 0.0-1.5 [facility] Comment on above: Order Comment: Speci men Type: URINE SPECIMEN Ordering Facility: [facility] Address: [address] [place] [address] Performed By: #### 2 4356-8 #### [facility] CLIA [id number] [address] [place] [address] [place] O2 THERAPY RA=Room Air Normal [facility] Comment on above: Order Comment: Speci men Type: URINE SPECIMEN Ordering Facility: [facility] Address: [address] [place] [address] Performed By: #### 2 4356-8 #### [facility] CLIA [id number] [address] [place] [address] [place] Oxygen (BldV) [Partial pressure] 51 mm[Hg] High 35-45 [facility] Comment on above: Order Comment: Speci men Type: URINE SPECIMEN Ordering Facility: [facility] Address: [address] [place] [address] Performed By: #### 2 4356-8 #### [facility] CLIA [id number] [address] [place] [address] [place] Oxyhemoglobin (BldV) [Mass fraction] 86 % Normal 4-98 [facility] Comment on above: Order Comment: Speci men Type: URINE SPECIMEN Ordering Facility: [facility] Address: [address] [place] [address] Performed By: #### 2 4356-8 #### [facility] CLIA [id number] [address] [place] [address] [place] pH (BldV) 7.40 [pH] Normal 7.32-7.42 [facility] Comment on above: Order Comment: Speci men Type: URINE SPECIMEN Ordering Facility: [facility] Address: [address] [place] [address] Performed By: #### 2 4356-8 #### [facility] CLIA [id number] [address] [place] [address] [place] Potassium [Moles/Vol] 4.0 mmol/L Normal 2.5-6.0 [facility] Comment on above: Order Comment: Speci men Type: URINE SPECIMEN Ordering Facility: [facility] Address: [address] [place] [address] Performed By: #### 2 4356-8 #### [facility] CLIA [id number] [address] [place] [address] [place] Sodium [Moles/Vol] 139 mmol/L Normal 136-144 [facility] Comment on above: Order Comment: Speci men Type: URINE SPECIMEN Ordering Facility: [facility] Address: [address] [place] [address] Performed By: #### 2 4356-8 #### [facility] CLIA [id number] [address] [place] [address] [place] Magnesium SerPl-mCncon 01-11 Magnesium [Mass/Vol] 1.6 mg/dL Normal 1.6-2.6 [facility] Comment on above: Order Comment: Speci men Type: URINE SPECIMEN Ordering Facility: [facility] Address: [address] [place] [address] Performed By: #### 2 4356-8 #### [facility] CLIA [id number] OF [facility] Urinalysis complete panel (U )on 01-12-2024 Bacteria LM.HPF (Urine sed) [#/Area] Few Abnormal None Seen [facility] Comment on above: Order Comment: Speci men Type: URINE SPECIMENOrdering Facility: [facility] Address: [address] [place] [address] Performed By: #### 2 4356-8 ####[facility] [id number] [address] [place] Bilirubin Ql (U) Negative Normal Negative [facility] Comment on above: Order Comment: Speci men Type: URINE SPECIMENOrdering Facility: [facility] Address: [address] [place] [address] Performed By: #### 2 4356-8 ####[facility] [id number] [address] [place] Clarity (Unsp spec) Clear Normal Clear [facility] Comment on above: Order Comment: Speci men Type: URINE SPECIMENOrdering Facility: [facility] Address: [address] [place] [address] Performed By: #### 2 4356-8 ####[facility] [id number] [address] [place] Color (U) Straw Normal Yellow [facility] Comment on above: Order Comment: Speci men Type: URINE SPECIMENOrdering Facility: [facility] Address: [address] [place] [address] Performed By: #### 2 4356-8 ####[facility] [id number] [address] Epithelial cells LM.HPF (Urine sed) [#/Area] Few Normal [facility] Comment on above: Order Comment: Speci men Type: URINE SPECIMENOrdering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 Hysterectomy, [facility] Dr[facility] Rhoades FAMILY HISTORY: FAMILY HISTORY Problem Relation Age of Onset Hypertension Father Arthritis Mother Diabetes Father Cancer Father Stockdale's Disease, dementia Osteoporosis Mother Cancer Other great [...] ring (more content not included)... Normal [facility] HIV 1+2 Ab IA Qlon HIV 1+2 Ab+HIV1 p24 Ag IA Ql Non-Reactive Normal Nonreactive [facility] Comment on above: Order Comment: Speci men Type: BLOOD SPECIMEN Ordering Facility: [facility] Address: [address] [place] [address] Result Comment: Nonr eactive: Less than 1.0 index value Specimens with an index value <1.0 are considered nonreactive for antibodies to HIV-1, HIV-2, and p24 antigen by the [employer] IM CHIV assay. Performed By: #### 5 7021-8 #### [facility] CLIA [id number] [address] [place] [address] [place] HbA1c (Bld)on 12-25-2023 Average glucose Estimated from glycated hemoglobin (Bld) [Mass/Vol] 266 mg/dL Normal [facility] Comment on above: Order Comment: Fani burkett Type: VENOUS BLOOD SPECIMEN Ordering Facility: [facility] Address: [address] [place] [address] Result Comment: eAG: (Estimated average glucose) is a calculated value from HgbA1c and is termite control representative of the average blood glucose level in the last 2-3 month period. Performed By: #### 2 4344-4 #### [facility] CLIA [id number] [address] [place] [address] [place] HbA1c (Bld) [Mass fraction] 10.9 % High 4.3-5.6 [facility] Comment on above: Order Comment: Fani [facility] Type: VENOUS BLOOD SPECIMEN Ordering Facility: [facility] Address: [address] [place] [address] Result Comment: Amer [place] Diabetes Association guidelines indicate that patients with HgbA1c in the range 5.7-6.4% are at increased risk for development of diabetes, and intervention by lifestyle modification may be beneficial. HgbA1c greater or equal to 6.5% is considered diagnostic of diabetes. Performed By: #### 2 4344-4 #### [facility] CLIA [id number] [address] [place] [address] [place] Lipase SerPl-cCncon 12-25-19 24 Lipase [Catalytic activity/Vol] 101 U/L High 12-60 [facility] Comment on above: Order Comment: Fani burkett Type: BLOOD SPECIMEN Ordering Facility: [facility] Address: [address] [place] [address] Performed By: #### [place], [address]-1, 3040-3, 02464-6 #### [facility] CLIA [id number] [address] [place] [address] [place] Magnesium SerPl-mCncon 12-24 Magnesium [Mass/Vol] 1.7 mg/dL Normal 1.6-2.6 [facility] Comment on above: Order Comment: Fani burkett Type: BLOOD SPECIMEN Ordering Facility: [facility] Address: [address] [facility] [place] [id number] Performed By: #### 5 7021-8 #### [facility] CLIA [id number] [address] [place] [address] [place] Magnesium [Mass/Vol] 1.9 mg/dL Normal 1.6-2.6 [facility] Comment on above: Order Comment: Specmai men Type: BLOOD SPECIMEN Ordering Facility: [facility] Address: [facility] [place] [id number] Performed By: #### [place], [address]-1, 3040-3, 31702-0 #### [facility] CLIA [id number] [address] [place] [address] [place] NUTRITIONon 12-25-2023 NUTRITION HNO ID: [id number] Author: DEEPA FIGUEROA RD Service: Nutrition Therapy [...] Weight Type: Current weight Estimated kilocalorie needs: 1637-1154 Calorie Calculation Method: 25-30 kcals/kg Estimated protein [...] 25, 2023 TIME: 12:[address] [facility] TOXICOLOGY SCREEN, ROUTINE U RINEon 12-25-2023 Amphetamines Confirm (U) [Mass/Vol] Negative Normal Negative [facility] Comment on above: Order Comment: Speci men Type: VENOUS BLOOD SPECIMEN Ordering Facility: [facility] Address: [address] [place] [address] Result Comment: Cuto ff threshold at 1000 ng/mL. Performed By: #### 2 4344-4 #### [facility] CLIA [id number] [address] [place] [address] [place] BARBITURATES, URINE Negative Normal Negative [facility] Comment on above: Order Comment: Speci men Type: VENOUS BLOOD SPECIMEN Ordering Facility: [facility] Address: [address] [place] [address] Result Comment: Cuto ff threshold at 200 ng/mL. Performed By: #### 2 4344-4 #### [facility] CLIA [id number] [address] [place] [address] [place] BENZODIAZEPINES, UR Negative Normal Negative [facility] Comment on above: Order Comment: Speci men Type: VENOUS BLOOD SPECIMEN Ordering Facility: [facility] Address: [address] [place] [address] Result Comment: Cuto ff threshold at 200 ng/mL. Performed By: #### 2 4344-4 #### [facility] CLIA [id number] [address] [place] [address] [place] Cannabinoids Screen Ql (U) Negative Normal Negative [facility] Comment on above: Order Comment: Speci men Type: VENOUS BLOOD SPECIMEN Ordering Facility: [facility] Address: [address] [place] [address] Result Comment: Cuto ff threshold at 50 ng/mL. Performed By: #### 2 4344-4 #### [facility] CLIA [id number] [address] [place] [address] [place] Cocaine Ql (U) Negative Normal Negative [facility] Comment on above: Order Comment: Speci men Type: VENOUS BLOOD SPECIMEN Ordering Facility: [facility] Address: [address] [place] [address] Result Comment: Cuto ff threshold at 300 ng/mL. Performed By: #### 2 4344-4 #### [facility] CLIA [id number] [address] [place] [address] [place] Opiates Screen Ql (U) Positive Abnormal Negative [facility] Comment on above: Order Comment: Speci men Type: VENOUS BLOOD SPECIMEN Ordering Facility: [facility] Address: [address] [place] [address] Result Comment: Cuto ff threshold at 300 ng/mL. Performed By: #### 2 4344-4 #### [facility] CLIA [id number] [address] [place] [address] [place] Phencyclidine Ql (U) Negative Normal Negative [facility] Comment on above: Order Comment: Speci men Type: VENOUS BLOOD SPECIMEN Ordering Facility: [facility] Address: [address] [place] [address] Result Comment: Cuto ff threshold at 25 ng/mL. Performed By: #### 2 4344-4 #### [facility] CLIA [id number] [address] [place] [id number] [place] US LEG [facility]IN [facility] n 12-25-2023 [facility] Non-Invasive Vascular Laboratory [facility] Lower Extremity Venous Duplex Bilateral/Complete [...] Interpreting physician: Edison Potter MD Final CC [employer] [facility] Image : [id number] See Link below for Image Normal [facility] Urinalysis complete panel (U )on 12-25-2023 Bacteria LM.HPF (Urine sed) [#/Area] None Seen Normal None Seen [facility] Comment on above: Order Comment: Speci men Type: URINE SPECIMEN Ordering Facility: [facility] Address: [address] [place] [address] Performed By: #### 2 4356-8 #### [facility] CLIA [id number] [address] [place] [address] [place] Bilirubin Ql (U) Negative Normal Negative [facility] Comment on above: Order Comment: Speci men Type: URINE SPECIMEN Ordering Facility: [facility] Address: [address] [place] [address] Performed By: #### 2 4356-8 #### [facility] CLIA [id number] [address] [place] [address] [place] Clarity (Unsp spec) Clear Normal Clear [facility] Comment on above: Order Comment: Speci men Type: URINE SPECIMEN Ordering Facility: [facility] Address: [facility] [place] [address] Performed By: #### 2 4356-8 #### [facility] CLIA [id number] [address] [place] [address] [place] Color (U) Straw Normal Yellow [facility] Comment on above: Order Comment: Speci men Type: URINE SPECIMEN Ordering Facility: [facility] Address: [address] [place] [address] Performed By: #### 2 4356-8 #### [facility] CLIA [id number] [address] [place] [address] [place] Epithelial cells LM.HPF (Urine sed) [#/Area] Few Normal [facility] Comment on above: Order Comment: Speci men Type: URINE SPECIMEN Ordering Facility: [facility] Address: [address] [place] [address] Performed By: #### 2 4356-8 #### [facility] CLIA [id number] [address] [place] [address] [place] Glucose Test strip (U) [Mass/Vol] 3+ Abnormal Negative [facility] Comment on above: Order Comment: Speci men Type: URINE SPECIMEN Ordering Facility: [facility] Address: [address] [place] [address] Performed By: #### 2 4356-8 #### [facility] CLIA [id number] [address] [place] [address] [place] Hemoglobin Ql (U) Negative Normal Negative [facility] Comment on above: Order Comment: Speci men Type: URINE SPECIMEN Ordering Facility: [facility] Address: [address] [place] [address] Performed By: #### 2 4356-8 #### [facility] CLIA [id number] [address] [place] [address] [place] Ketones Ql (U) Negative Normal Negative [facility] Comment on above: Order Comment: Speci men Type: URINE SPECIMEN Ordering Facility: [facility] Address: [address] [place] [address] Performed By: #### 2 4356-8 #### [facility] CLIA [id number] [address] [place], [place] [address] [place] Leukocyte esterase Test strip Ql (U) Negative Normal Negative [facility] Comment on above: Order Comment: Speci men Type: URINE SPECIMEN Ordering Facility: [facility] Address: [address] [place] [address] Performed By: #### 2 4356-8 #### [facility] CLIA [id number] [address] [place] [address] [place] Nitrite Ql (U) Negative Normal Negative [facility] Comment on above: Order Comment: Speci men Type: URINE SPECIMEN Ordering Facility: [facility] Address: [address] [place] [address] Performed By: #### 2 4356-8 #### [facility] CLIA [id number] [address] [place] [address] [place] pH (U) 7.0 [pH] Normal 5.0-8.0 [facility] Comment on above: Order Comment: Speci men Type: URINE SPECIMEN Ordering Facility: [facility] Address: [address] [place] [address] Performed By: #### 2 4356-8 #### [facility] CLIA [id number] [address] [place] [address] [place] Protein (U) [Mass/Vol] Negative Normal Negative [facility] Comment on above: Order Comment: Speci men Type: URINE SPECIMEN Ordering Facility: [facility] Address: [address] [place] [address] Performed By: #### 2 4356-8 #### [facility] CLIA [id number] [address] [place] [address] [place] RBC LM.HPF (Urine sed) [#/Area] 0-3 /HPF Normal 0-3 /HPF [facility] Comment on above: Order Comment: Speci men Type: URINE SPECIMEN Ordering Facility: [facility] Address: [address] [place] [address] Performed By: #### 2 4356-8 #### [facility] CLIA [id number] [address] [place] [address] [place] Specific gravity (U) [Rel density] >1.030 High 1.005-1.030 [facility] Comment on above: Order Comment: Speci men Type: URINE SPECIMEN Ordering Facility: [facility] Address: [address] [place] [address] Performed By: #### 2 4356-8 #### [facility] CLIA [id number] [address] [place] [address] [place] Urobilinogen Ql (U) Negative Normal Negative [facility] Comment on above: Order Comment: Speci men Type: URINE SPECIMEN Ordering Facility: [facility] Address: [address] [place] [address] Performed By: #### 2 4356-8 #### [facility] CLIA [id number] [address] [place] [address] [place] WBC LM.HPF (Urine sed) [#/Area] 0-5 /HPF Normal 0-5 /HPF [facility] Comment on above: Order Comment: Speci men Type: URINE SPECIMEN Ordering Facility: [facility] Address: [address] [place] [address] Performed By: #### 2 4356-8 #### [facility] CLIA [id number] [address] [place] [address] [place] Vital Signs Date Time Vital Sign Value Performing Clinician Facility 10-13-2024 06:44-0400 Body height 165.[address] Fely Bose MD Work Phone: [facility] 10-13-2024 06:44-0400 Body mass index (BMI) [Ratio] 25 kg/m2 Dr. Fely Bose MD Work Phone: [facility] 10-13-2024 06:44-0400 Body temperature 98.7 [degF] Dr. Fely Bose MD Work Phone: [facility] 10-13-2024 06:44-0400 Body weight 68.[address] Fely Bose MD Work Phone: [facility] 10-13-2024 06:44-0400 Diastolic blood pressure 76 mm[Hg] Dr. Fely Bose MD Work Phone: [facility] 10-13-2024 06:44-0400 Heart rate 87 /min Dr. Fely Bose MD Work Phone: [facility] 10-13-2024 06:44-0400 Respiratory rate 16 /min Dr. Fely Bose MD Work Phone: [facility] 10-13-2024 06:44-0400 SaO2% (BldA) [Mass fraction] 95 % Dr. Fely Bose MD Work Phone: [facility] 10-13-2024 06:44-0400 Systolic blood pressure 154 mm[Hg] Dr. Fely Bose MD Work Phone: [facility] 10-06-2024 05:26-0400 Body temperature 97.8 [degF] Dr. Fely Bose MD Work Phone: [facility] [facility] 10-06-2024 05:26-0400 Diastolic blood pressure 74 mm[Hg] Dr. Fely Bose MD Work Phone: [facility] 10-06-2024 05:26-0400 Heart rate 69 /min Dr. Fely Bose MD Work Phone: [facility] 10-06-2024 05:26-0400 Respiratory rate 16 /min Dr. Fely Bose MD Work Phone: [facility] 10-06-2024 05:26-0400 SaO2% (BldA) [Mass fraction] 97 % Dr. Fely Bose MD Work Phone: [facility] 10-06-2024 05:26-0400 Systolic blood pressure 155 mm[Hg] Dr. Fely Bose MD Work Phone: [facility] 10-05-2024 23:31-0400 Body height 165.[address] Fely Bose MD Work Phone: [facility] 10-05-2024 23:31-0400 Body mass index (BMI) [Ratio] 24.1 kg/m2 Dr. Fely Bose MD Work Phone: [facility] 10-05-2024 23:31-0400 Body weight 65.[address] Fely Bose MD Work Phone: [facility] 10-01-2024 22:57-0400 Body temperature 97.8 [degF] Dr. Fely Bose MD Work Phone: [facility] 10-01-2024 22:57-0400 Diastolic blood pressure 84 mm[Hg] Dr. Fely Bose MD Work Phone: [facility] 10-01-2024 22:57-0400 Heart rate 86 /min Dr. Fely Bose MD Work Phone: [facility] 10-01-2024 22:57-0400 Respiratory rate 16 /min Dr. Fely Bose MD Work Phone: [facility] 10-01-2024 22:57-0400 SaO2% (BldA) [Mass fraction] 96 % Dr. Fely Bose MD Work Phone: [facility] 10-01-2024 22:57-0400 Systolic blood pressure 119 mm[Hg] Dr. Fely Bose MD Work Phone: [facility] 10-01-2024 20:48-0400 Body height 165.[address] Fely Bose MD Work Phone: [facility] 10-01-2024 20:48-0400 Body mass index (BMI) [Ratio] 24.2 kg/m2 Dr. Fely Bose MD Work Phone: [facility] 10-01-2024 20:48-0400 Body weight 66.[address] Fely Bose MD Work Phone: [facility] 09-01-2024 18:55-0400 Diastolic blood pressure 63 mm[Hg] Dr. Fely Bose MD Work Phone: [facility] 09-01-2024 18:55-0400 Heart rate 90 /min Dr. Fely Bose MD Work Phone: [facility] 09-01-2024 18:55-0400 SaO2% (BldA) [Mass fraction] 94 % Dr. Fely Bose MD Work Phone: [facility] 09-01-2024 18:55-0400 Systolic blood pressure 121 mm[Hg] Dr. Fely Bose MD Work Phone: [facility] 09-01-2024 17:48-0400 Body temperature 97 [degF] Dr. Fely Bose MD Work Phone: [facility] 09-01-2024 17:48-0400 Respiratory rate 16 /min Dr. Fely Bose MD Work Phone: [facility] 09-01-2024 07:51-0400 Body height 165.[address] Fely Bose MD Work Phone: [facility] 09-01-2024 07:51-0400 Body mass index (BMI) [Ratio] 24.5 kg/m2 Dr. Fely Bose MD Work Phone: [facility] 09-01-2024 07:51-0400 Body weight 66.[address] Fely Bose MD Work Phone: [facility] 08-31-2024 21:19-0400 Body temperature 98 [degF] Dr. Fely Bose MD Work Phone: [facility] 08-31-2024 21:19-0400 Diastolic blood pressure 60 mm[Hg] Dr. Fely Bose MD Work Phone: [facility] 08-31-2024 21:19-0400 Heart rate 79 /min Dr. Fely Bose MD Work Phone: [facility] 08-31-2024 21:19-0400 Respiratory rate 18 /min Dr. Fely Bose MD Work Phone: [facility] 08-31-2024 21:19-0400 SaO2% (BldA) [Mass fraction] 96 % Dr. Fely Bose MD Work Phone: [facility] 08-31-2024 21:19-0400 Systolic blood pressure 128 mm[Hg] Dr. Fely Bose MD Work Phone: [facility] 08-31-2024 16:22-0400 Body height 165.[address] Fely Bose MD Work Phone: [facility] 08-31-2024 16:22-0400 Body mass index (BMI) [Ratio] 24.4 kg/m2 Dr. Fely Bose MD Work Phone: [facility] 08-31-2024 16:22-0400 Body weight 66.[address] Fely Bose MD Work Phone: [facility] 08-29-2024 16:05-0400 Body temperature 98.3 [degF] Dr. Fely Bose MD Work Phone: [facility] 08-29-2024 16:05-0400 Diastolic blood pressure 78 mm[Hg] Dr. Fely Bose MD Work Phone: [facility] 08-29-2024 16:05-0400 Heart rate 78 /min Dr. Fely Bose MD Work Phone: [facility] 08-29-2024 16:05-0400 Respiratory rate 18 /min Dr. Fely Bose MD Work Phone: [facility] 08-29-2024 16:05-0400 SaO2% (BldA) [Mass fraction] 98 % Dr. Fely Bose MD Work Phone: [facility] 08-29-2024 16:05-0400 Systolic blood pressure 120 mm[Hg] Dr. Fely Bose MD Work Phone: [facility] 08-29-2024 12:06-0400 Body height 165.[address] Fely Bose MD Work Phone: [facility] 08-29-2024 12:06-0400 Body mass index (BMI) [Ratio] 25.3 kg/m2 Dr. Fely Bose MD Work Phone: [facility] 08-29-2024 12:06-0400 Body weight 69.[address] Fely Bose MD Work Phone: [facility] 06-30-2024 11:24-0400 Body temperature 37.0 degrees Celsius [facility] Comment on above: Performed By: #### [id number] #### CHITO SIDDIQI ([id number]) [facility] ([facility] [place] [address] [place] [address] 06-30-2024 11:24-0400 SaO2% (BldA) [Mass fraction] 98 % [facility] Comment on above: Performed By: #### [id number] #### CHITO SIDDIQI ([id number]) [facility] ([facility] [place] [address] [place] [address] 06-29-2024 16:53-0400 Body temperature 37.0 degrees Celsius [facility] Comment on above: Performed By: #### [id number] #### CHITO SIDDIQI ([id number]) [facility] ([facility] [place] [address] [place] [address] 06-29-2024 16:53-0400 SaO2% (BldA) [Mass fraction] 96 % [facility] Comment on above: Performed By: #### [id number] #### CHITO SIDDIQI ([id number]) [facility] ([facility] [place] [address] [id number] 06-18-2024 20:58-0500 Body temperature 98.5 [degF] Dr. Fely Bose MD Work Phone: [facility] 06-18-2024 20:58-0500 Diastolic blood pressure 85 mm[Hg] Dr. Fely Bose MD Work Phone: [facility] 06-18-2024 20:58-0500 Heart rate 85 /min Dr. Fely Bose MD Work Phone: [facility] 06-18-2024 20:58-0500 Respiratory rate 16 /min Dr. Fely Bose MD Work Phone: [facility] 06-18-2024 20:58-0500 SaO2% (BldA) [Mass fraction] 96 % Dr. Fely Bose MD Work Phone: [facility] 06-18-2024 20:58-0500 Systolic blood pressure 137 mm[Hg] Dr. Fely Bose MD Work Phone: [facility] 06-18-2024 13:36-0500 Body mass index (BMI) [Ratio] 22.3 kg/m2 Dr. Fely Bose MD Work Phone: [facility] 06-18-2024 13:36-0500 Body weight 60.[address] Fely Bose MD Work Phone: [facility] 06-15-2024 14:23-0500 Body temperature 97.6 [degF] Dr. Fely Bose MD Work Phone: [facility] 06-15-2024 14:23-0500 Diastolic blood pressure 96 mm[Hg] Dr. Fely Bose MD Work Phone: [facility] 06-15-2024 14:23-0500 Heart rate 128 /min Dr. Fely Bose MD Work Phone: [facility] 06-15-2024 14:23-0500 Respiratory rate 18 /min Dr. Fely Bose MD Work Phone: [facility] 06-15-2024 14:23-0500 SaO2% (BldA) [Mass fraction] 98 % Dr. Fely Bose MD Work Phone: [facility] 06-15-2024 14:23-0500 Systolic blood pressure 150 mm[Hg] Dr. Fely Bose MD Work Phone: [facility] 05-01-2024 10:55-0500 Body temperature 98.7 [degF] Dr. Fely Bose MD Work Phone: [facility] 05-01-2024 10:55-0500 Diastolic blood pressure 63 mm[Hg] Dr. Fely Bose MD Work Phone: [facility] 05-01-2024 10:55-0500 Heart rate 108 /min Dr. Fely Bose MD Work Phone: [facility] 05-01-2024 10:55-0500 Respiratory rate 16 /min Dr. Fely Bose MD Work Phone: [facility] 05-01-2024 10:55-0500 SaO2% (BldA) [Mass fraction] 94 % Dr. Fely Bose MD Work Phone: [facility] 05-01-2024 10:55-0500 Systolic blood pressure 126 mm[Hg] Dr. Fely Bose MD Work Phone: [facility] 04-30-2024 11:21-0500 Body weight 83.[address] Fely Bose MD Work Phone: [facility] 04-29-2024 22:47-0500 Body mass index (BMI) [Ratio] 30.7 kg/m2 Dr. Fely Bose MD Work Phone: [facility] 04-10-2024 19:24-0500 Diastolic blood pressure 70 mm[Hg] Michele De Santiago DO Work Phone: [facility] 04-10-2024 19:24-0500 Heart rate 84 /min Michele De Santiago DO Work Phone: [facility] 04-10-2024 19:24-0500 Respiratory rate 14 /min Michele De Santiago DO Work Phone: [facility] 04-10-2024 19:24-0500 SaO2% (BldA) [Mass fraction] 98 % Michele De Santiago DO Work Phone: [facility] 04-10-2024 19:24-0500 Systolic blood pressure 128 mm[Hg] Michele De Santiago DO Work Phone: [facility] 04-10-2024 13:34-0500 Body temperature 98.01 [degF] Michele De Santiago DO Work Phone: [facility] 03-24-2024 22:20-0500 Diastolic blood pressure 70 mm[Hg] Millie Evans MD Work Phone: [facility] 03-24-2024 22:20-0500 Heart rate 88 /min Millie Evans MD Work Phone: [facility] 03-24-2024 22:20-0500 Respiratory rate 16 /min Millie Evans MD Work Phone: [facility] 03-24-2024 22:20-0500 SaO2% (BldA) [Mass fraction] 99 % Millie Evnas MD Work Phone: [facility] 03-24-2024 22:20-0500 Systolic blood pressure 138 mm[Hg] Millie Evans MD Work Phone: [facility] 03-24-2024 19:01-0500 Body mass index (BMI) [Ratio] 24.46 kg/m2 Millie Evans MD Work Phone: [facility] 03-24-2024 19:01-0500 Body weight 66.68 kg Millie Evans MD Work Phone: [facility] 03-24-2024 18:27-0500 Body temperature 97.7 [degF] Millie Evans MD Work Phone: [facility] 03-13-2024 13:51-0500 Body height 166.4 cm Eloise Newbill PA-C Work Phone: [facility] 03-13-2024 13:51-0500 Body mass index (BMI) [Ratio] 23.66 kg/m2 Eloise Newbill PA-C Work Phone: [facility] 03-13-2024 13:51-0500 Body temperature 98.01 [degF] Eloise Newbill PA-C Work Phone: [facility] 03-13-2024 13:51-0500 Body weight 65.5 kg Eloise Newbill PA-C Work Phone: [facility] 03-13-2024 13:51-0500 Diastolic blood pressure 88 mm[Hg] Eloise Newbill PA-C Work Phone: [facility] 03-13-2024 13:51-0500 Heart rate 112 /min Eloise Newbill PA-C Work Phone: [facility] 03-13-2024 13:51-0500 Respiratory rate 16 /min Eloise Newbill PA-C Work Phone: [facility] 03-13-2024 13:51-0500 SaO2% (BldA) [Mass fraction] 99 % Eloise Newbill PA-C Work Phone: [facility] 03-13-2024 13:51-0500 Systolic blood pressure 136 mm[Hg] Eloise Newbill PA-C Work Phone: [facility] 12-18-2023 13:59-0400 Blood Pressure Cuff Size GUILLERMINA ROGERS MD [facility] 12-18-2023 13:59-0400 Blood Pressure Location GUILLERMINA ROGERS MD [facility] 12-18-2023 13:59-0400 Blood Pressure Method GUILLERMINA ROGERS MD [facility] 12-18-2023 13:59-0400 Body temperature 97.88 [degF] GUILLERMINA ROGERS MD [address] [place] [address] 12-18-2023 13:59-0400 Diastolic Blood Pressure Non-Invasive 62 mm[Hg] GUILLERMINA ROGERS MD [facility] 12-18-2023 13:59-0400 Heart rate 90 /min GUILLERMINA ROGERS MD [facility] 12-18-2023 13:59-0400 Respiratory rate 17 /min GUILLERMINA ROGERS MD [facility] 12-18-2023 13:59-0400 Systolic Blood Pressure Non-Invasive 96 mm[Hg] GUILLERMINA ROGERS MD [facility] 08-05-2023 13:56-0400 Body temperature 97.9 [degF] [facility] 08-05-2023 13:56-0400 Diastolic blood pressure 69 mm[Hg] [facility] 08-05-2023 13:56-0400 Heart rate 78 /min [facility] 08-05-2023 13:56-0400 Respiratory rate 18 /min [facility] 08-05-2023 13:56-0400 SaO2% (BldA) [Mass fraction] 95 % [facility] 08-05-2023 13:56-0400 Systolic blood pressure 118 mm[Hg] [facility] 08-05-2023 12:01-0400 Body height 165.1 cm [facility] 08-05-2023 12:01-0400 Body mass index (BMI) [Ratio] 28 kg/m2 [facility] 08-05-2023 12: Body weight 76.61 kg [facility] Encounters Encounter Date Encounter Type Care Provider Facility Start: 10-20-2024 End: 10-24-2024 Emergency department patient visit DR RENE BECKWITH MD [facility] Start: 10-13-2024 End: 10-13-2024 Emergency department patient visit Dr. Fely Bose MD Work Phone: -Emergency Department Work Phone: Start: 10-05-2024 End: 10-06-2024 Emergency department patient visit Dr. Fely Bose MD Work Phone: -Emergency Department Work Phone: Start: 10-01-2024 End: 10-01-2024 Emergency department patient [...] End: 07-31-2024 Patient encounter procedure Silvestre Murray APRN.OVERLOCK OPERATOR Work Phone: [facility] Start: 07-28-2024 End: 07-31-2024 Progress Note Silvestre Murray APRN.OVERLOCK OPERATOR Work Phone: [facility] Start: 07-17-2024 End: 07-24-2024 Patient encounter procedure Silvestre Trevon QUALITY IMPROVEMENT ENGINEER.OVERLOCK OPERATOR Work Phone: [facility] Start: 07-17-2024 End: 07-24-2024 Progress Note Silvestre Murray QUALITY IMPROVEMENT ENGINEER.OVERLOCK OPERATOR Work Phone: [facility] Start: 07-14-2024 End: 07-15-2024 Patient encounter procedure Jesus Lindsey MD Work Phone: [facility] Start: 07-14-2024 End: 07-15-2024 Progress Note Jesus Lindsey MD Work Phone: [facility] Start: 06-29-2024 End: 08-17-2024 ambulatory [facility] Start: 06-29-2024 End: 06-29-2024 Subsequent hospital visit by physician Rehan Navarrov1 [facility] [place] Start: 06-29-2024 End: 07-13-2024 Evaluation and management of inpatient [facility] Start: 06-18-2024 End: 06-18-2024 Emergency department patient visit Dr. Albert Mccoy MD -Emergency Department Work Phone: Start: 06-15-2024 End: 06-15-2024 Emergency department patient visit ED PHYSICIAN PROVIDER -Emergency Department Work Phone: Start: 05-11-2024 ambulatory Fely Lidya Facility :[facility] Start: 05-11-[address] Teri Franklin MD -[facility] Start: 05-04-2024 ambulatory Teri Spivey ty:[facility] Start: 05-04-[address] Teri Franklin MD -[facility] Start: 05-01-2024 Non-patient / Non-visit Dr. Eva Ma MD -[facility] Work Phone: Start: 04-29-2024 ambulatory Farhad Vega ility:[facility] Start: 04-29-2024 End: 05-01-2024 Evaluation and management of inpatient Dr. Farhad Ma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 year. She states she has no supportive people in her life. Medical status: Currently the patient is resting comfortably, in no distress. She is afebrile, and her vital signs are reassuring. Laboratory studies including CBC, urinalysis, metabolic panel, liver function tests are reviewed and generally reassuring for my purposes. She does have an elevated glucose of over 300, and elevated transaminases with an AST of 44 and ALT of 87. Alcohol, salicylate, and acetaminophen levels are not detectable. Urine tox screen for drugs of abuse is positive for cocaine metabolites only. No neuroimaging is available for review. She is being treated with parenteral antibiotics. She has not required any psychoactive medications since arrival. Mental status examination: Patient is alert and oriented, resting comfortably. She is quite frail and weak in appearance and somewhat disheveled. Speech is fluent. Mood is described as depressed. Affect is restricted, anxious, and tearful. Thought process is circumstantial. Thought content is notable for passive wish. There are no homicidal ideation present. There are no psychotic symptoms present. Insight is poor and judgment is fair. Diagnosis: Chronic depression and anxiety in the context of substance use disorder. Symptoms use disorder with cocaine dependence. Discussion: This 54-year-old woman with longstanding depression, anxiety, and cocaine dependence presents in the context of cocaine intoxication, suicidal ideation, and homelessness. She desires to be transferred to inpatient psychiatry as the next step in treatment planning, which is quite reasonable. Recommendation: Transfer to inpatient psychiatry when medically stable. CPT code: 27832 Physical Exam Vitals and Measurements T: 36.6 C (Oral) TMIN: 36.6 C (Oral) TMAX: 36.7 C (Oral) HR: 84 RR: 18 BP: 93/59 SpO2: 90% Weight Dosing Weight: 53.6 kg (10/20/24) Lab Results No 36 Hour Lab Data Procedure/Surgical History No qualifying data available. Medications Inpatient HumaLOG 100 units/mL subcutaneous solution, Give 0-5 units/dose, Subcutaneous, TIDAC Keflex, 500 mg= 1 cap(s), Oral, BID miconazole 2% topical powder, 1 ila, Topical, BID Home Celexa 20 mg oral tablet, 20 mg= 1 tab(s), Oral, Daily, Non Compliant Seroquel 50 mg oral tablet, Oral, qHS, Non Compliant Allergies Percocet 7.5/325 Sudafed Cold and Sinus itching aspirin Social History Smoking Status - 02/02/2012 Current every day smoker Substance Abuse Use: Current. Type: Cocaine, Methamphetamines. Frequency: Daily. IV drug use; No., 10/20/2024 Immunizations No qualifying data available. Digitally Signed by ANNI MCKEON MD on 10/22/2024 12:56 PM [facility] 10-20-2024 Note Exam Date Time Procedure Performing Provider Status 10/20/24 9:05 PM XR Abdomen AP RIVER FRANKS DO; Auth (Verified) [id number] ORIGINAL EXAMINATION: ONE SUPINE XRAY VIEW(S) OF THE ABDOMEN10/20/2024 9:05 pm COMPARISON: None HISTORY: ORDERING SYSTEM PROVIDED HISTORY: Reason for Exam: possible rectal FB FINDINGS: Nonobstructive bowel gas pattern. Small to moderate colonic stool burden. Right upper quadrant surgical clips. No radiopaque foreign bodies visualized.. IMPRESSION: No visualized radiopaque foreign body. If persistent clinical concern, consider lateral pelvic radiograph or pelvic CT. I have personally reviewed the images of this examination and agree with the resident's findings and interpretation. Interpreted by: River Franks Preliminary Report By: Albert Sheikh Electronically signed By River Franks Dictated Date: 10/20/2024 9:09:56 PM Prelim Date: 10/20/2024 9:13:42 PM Sign Date: 10/20/2024 9:43:31 PM Ordering Provider: ARMIN HOOPER Interpreted by: River Franks Preliminary Report By: Albert Sheikh Electronically signed By River Franks Dictated Date: 10/20/2024 9:09:56 PM Prelim Date: 10/20/2024 9:13:42 PM Sign Date: 10/20/2024 9:43:31 PM Ordering Provider: ARMIN HOOPER [id number] Note* Exam Date Time Procedure Performing Provider Status 10/20/24 8:55 PM EKG (ED) - CV RENY JIN DO; Auth (Verified) ECG Final Report SINUS TACHYCARDIA INFERIOR INFARCT, OLD ABNORMAL LATERAL Q WAVES ANTERIOR INFARCT, OLD Electronic Signature: RENY JIN DO 10/20/2024 21:49:25 [id number] Discharge summary [facility] Medical Records Department [address] [place] [address] Emergency Department Summary 10/06/24 MR#: [id number] Acct: [id number] Name: ANA CRISTINA THOMAS Rep #:[id number] : 1970 54 From: Pierce Singleton MD PCP: Care Physician,No Primary Status :REG ER Location: ED HPI History of Present Illness Chief Complaint: Chest Other Informant: patient Narrative Narrative: 54-year-old female presents saying her blood sugar was high at 515 at home priorto coming here. Shefeels poorly, and she has pain in her distal extremities x 4 although she admits that is chronic and not new. She is an insulin-dependent diabetic and admittedly has been out of her insulin for months. She also states she has not had a meter to check her insulin until today but feels like her blood sugar washigh for at least the last few days hashad polydipsia/polyuria not amount of time. She has a cough that is nonproductive, she denies any dyspnea. No fevers or chills that she knows of. She is asking for something for the pain in her arms and legs. She states she was diagnosed with peripheral neuropathy and that is what her pain is from. [facility] Medical History Diabetic ulcer of foot [...] 50 mg PO BID 5 Unknown History oxycodone-acetaminophen 5 mg-325 1 tab PO Q6H PRN pain 3 days #12 10/01/24 Unknown Rx mg tablet (Percocet) tabs ondansetron 8 mg disintegrating 8 mg PO Q8H PRN nausea and 10/06/24 Unknown Rx tablet vomiting #12 tabs sulfamethoxazole 800 1 tab PO BID #6 TABLETS 09/14 08/07 Unknown Rx mg-trimethoprim 160 mg tablet Allergy/AdvReac Type Severity Reaction Status Date / Time aspirin AdvReac Other Verified 10/05/24 23:32 hydromorphone (From Dilaudid) AdvReac Other Verified 10/05/24 23:32 pseudoephedrine HCl (From AdvReac Other Verified 10/05/24 23:32 Sudafed) Surgical History History of cholecystectomy Hx of brain surgery Hx of appendectomy Hx of section Hx of total adrenalectomy Social History household members: none housing: homeless Smoking Status: Current every day smoker tobacco type: cigarettes quit status: considering quitting alcohol intake: never substance use type: former substance user ROS ROS ED Constitutional Constitutional ED: Reports malaise; Denies chills or fever(s) Eyes Eyes: Denies change in vision or diplopia ENT ENT ED: Denies rhinorrhea or sore throat Cardiovascular Cardiovascular: Denies chest pain or palpitations Respiratory/Chest Respiratory/Chest: Reports cough; Denies dyspnea or sputum Gastrointestinal Gastrointestinal: Reports nausea; Denies abdominal pain, diarrhea or vomiting Genitourinary Genitourinary ED: Reports urinary frequency; Denies dysuria or hematuria Musculoskeletal Musculoskeletal: Reports arthralgias and extremity pain; Denies back pain or neck pain Integumentary Denies abscess or rash Neurologic Neurologic: Denies headache(s), paresthesias or weakness Psychiatric Psychiatric: Denies anxiety or suicidal thoughts Endocrine Endocrinology: Reports polydipsia and polyuria EXAM Physical Exam Const Vital Signs: 10/05/24 23:31 10/06/24 01:31 10/06/24 03:00 Temperature 97.8 F Temperature Source Oral Pulse Rate 86 66 73 Respiratory Rate 16 16 16 Blood Pressure 170/83 H 162/74 H 151/69 H Blood Pressure Mean 112 103 96 Pulse Ox 97 94 95 Oxygen Delivery Method Room Air Room Air 10/06/24 05:00 Temperature Temperature Source Pulse Rate 70 Respiratory Rate 12 Blood Pressure 156/92 H Blood Pressure Mean 113 Pulse Ox 96 Oxygen Delivery Method Room Air Positive well nourished and well developed General Appearance ED: well developed and NAD HEENT Reports moist mucous membranes normocephalic and atraumatic Eyes PERRL and EOMs intact bilaterally Neck full ROM and supple Resp normal respiratory effort and clear to auscultation bilaterally Cardio regular rate, regular rhythm and no murmurs Rate: Negative for tachycardic GI non-tender and non-distended Auscultation: normoactive bowel sounds Palpation: soft Back/Spine no CVA tenderness General Back: other FROM Extremity normal to inspection General Extremety ED: Negative for edema, pulses abnormal or tenderness General Extremity: Negative for edema or pulses abnormal Neuro oriented x3, CN's II-XII intact bilaterally and no sensory deficits noted Sensorium / Orientation: awake and alert Motor Exam: strength 5/5 throughout Psych Mood & Affect: anxious Skin no rashes or lesions noted and no wounds MDM MDM MDM Narrative Medical decision making narrative: Patient was given a couple doses of IV insulin, and we ended up getting her blood sugar down to qik194 range. I reviewed labs, which are inconsistent withDKA. Her urinalysis shows some mild pyuria but no other significant indicators of infection, and she has no urinary symptoms other than urinary f requency. There is 1+ bacteria and 25 leukocyte esterase, so I am going to treat her with a short course of Bactrim which may or may not be causing her hyperglycemia right now, although it is probably more related to the fact that she has not been taking her insulin. Performed an EKG which is normal and a chest x-ray which is normal on my interpretation, 2 views with no pneumonia radiology in agreement. Patient has symptoms of peripheral neuropathy, her pain she admits is chronic. She is wanting something for pain. I gave her Toradol, she wanted something more so I started her on gabapentin, giving her a dose here. It appears that she is supposed to be on Lyrica but again does not have any of her medications. She states that all of her [facility] [place] but she is here now and needs to get them all transferred. I advised her to go to the local [facility] to see if they can help her with this. I am giving her a prescription for some nausea medication as well but I think she is stable to go home. She is asking for a local doctor, she is referred to the next doctor on the unassigned list, Dr. Rodriguez Lab Data Attestation: I reviewed the patient's lab results. Labs: Laboratory Results - last 24 hr 10/06/24 10/06/24 10/06/24 01:34 01:43 03:42 WBC 4.8 RBC 4.90 Hgb 13.9 Hct 40.2 MCV 82.0 MCH 28.4 MCHC 34.6 RDW Std Deviation 37.7 RDW Coeff of Cele 12.6 Plt Count 129 L MPV 10.6 Immature Gran % (Auto) 0.600 Neut % (Auto) 56.2 Lymph % (Auto) 31.3 [place] % (Auto) 9.0 Eos % (Auto) 2.1 Baso % (Auto) 0.8 Absolute Neuts (auto) 2.7 Absolute Lymphs (auto) 1.50 Nucleated RBC % 0 Sodium 133 Potassium 3.8 Chloride 98 Carbon Dioxide 22.5 Anion Gap 13 BUN 18 Creatinine 0.64 L Estim Creat Clear Calc 90.42 Est GFR (MDRD) Non-Af 105 BUN/Creatinine Ratio 27.3 H Glucose 497 H* Calcium 9.1 b-Hydroxybutyric mmol/L 0.1 Urine Color Straw Urine Clarity Clear Urine pH 6.0 Ur Specific [place] 1.015 Urine Protein 15 H Urine Glucose (UA) 1000 H Urine Ketones Negative Urine Occult Blood 10 H Urine Nitrite Negative Urine Bilirubin Negative Urine Urobilinogen Normal Ur Leukocyte Esterase 25 H Urine RBC 0 SEEN Urine WBC 10-25 SEEN Ur Squamous Epith Cells 5-10 SEEN Urine Bacteria 1+ Urine Mucus 0 SEEN POC Glucose 442 H 315 H 10/06/24 04:41 WBC RBC Hgb Hct MCV MCH MCHC RDW Std Deviation RDW Coeff of Cele Plt Count MPV Immature Gran % (Auto) Neut % (Auto) Lymph % (Auto) [place] % (Auto) Eos % (Auto) Baso % (Auto) Absolute Neuts (auto) Absolute Lymphs (auto) Nucleated RBC % Sodium Potassium Chloride Carbon Dioxide Anion Gap BUN Creatinine Estim Creat Clear Calc Est GFR (MDRD) Non-Af BUN/Creatinine Ratio Glucose Calcium b-Hydroxybutyric mmol/L Urine Color Urine Clarity Urine pH Ur Specific [place] Urine Protein Urine Glucose (UA) Urine Ketones Urine Occult Blood Urine Nitrite Urine Bilirubin Urine Urobilinogen Ur Leukocyte Esterase Urine RBC Urine WBC Ur Squamous Epith Cells Urine Bacteria Urine Mucus POC Glucose 265 H ABG Data ABG results: ABG 10/06/24 01:40 Specimen Type SUMAN Sample Site Not entered VBG pH 7.42 VBG pO2 45 H VBG HCO3 27 H VBG Total CO2 28 VBG O2 Sat (Calc) 82 H VBG Base Excess 3 POC Mix VBG pCO2 Pt Tmp 41.9 O2 Delivery Device Not entered Radiography Diagnostic Testing: Clinical Impression(s) from Imaging Studies Chest X-Ray 10/06/24 01:47 IMPRESSION: No evidence for acute abnormality. Reading Location: [place] [address] Rhythm Strip Rhythm Strip: Sinus Rhythm Rate: 85 Ectopy: None EKG Initial EKG: Attestation: I personally reviewed and interpreted this EKG as follows: Interpretation: Sinus Rhythm and No Acute Injury Pattern Comments: Nml axis & intervals; nml EKG Discharge Plan Triage Chief Complaint: Chest Other ED Provider: Pierce Singleton Dx/Rx/DC Orders Clinical Impression: Type 2 diabetes mellitus with hyperglycemia, Noncompliance with medications, UTI (urinary tract infection), Diabetic peripheral neuropathy Instructions: ED Diabetic Hyperglycemia Prescriptions: New sulfamethoxazole-trimethoprim 800-160 mg tablet 1 tab PO BID Qty: 6 0RF ondansetron 8 mg tablet,disintegrating 8 mg PO Q8H PRN (Reason: nausea and vomiting) Qty: 12 0RF No Action (DME) pen needle, diabetic [...] Qty: 1 0RF Rx Instructions: As directed oxycodone-acetaminophen [Percocet] 5-325 mg tablet 1 tab PO Q6H PRN (Reason: pain) 3 Days Qty: 12 0RF doxepin 25 mg capsule 25 mg PO [...] Primary Care Provider: Care Physician,No Primary Referrals: Whitney Rodriguez MD [Med Staff - Spinner Fixer] - As soon as possible Print Language: Argentine Disposition Disposition: Home, Self Care What to do if you have Problems For any increased pain, shortness of breath, bleeding, nausea or vomiting, chestpain, or any unexpected problems, contact your Primary Care Provider. Call [facility] ([phone]) or report tothe closest Emergency Room. Call 911 if necessary. 10/06/24521 Cosigner Signature (if applicable): CC: Dr. Whitney Rodriguez MD; No Primary Care Physician ~ Signed [facility]06-24-2025 Radiology Diagnostic study note [facility] Imaging Services [address] [place], [place] [address] Chest PA and Lateral MR#: [id number] Acct: [id number] Name: ANA CRISTINA THOMAS Rep #: [id number] : 1970 F 54 From: Winter Hurst MD PCP: Care Physician,No Primary Status: REG ER Study:Chest PA and Lateral Date of Exam: 10/06/24 Exam# [id number] Ordering Dr: Zina Singleton MD PROCEDURE: CHEST PA AND LATERAL 10/06/2024 REASON FOR EXAM: COUGH TECHNIQUE: CHEST PA AND LATERAL COMPARISON: 09/01/2024. FINDINGS: The lungs are expanded. There is no demonstrated parenchymal abnormality. There is no demonstrated pleural abnormality. Normal heart and pericardium. Normal mediastinum and rosibel. Normal visualized pulmonary arteries. Normal visualized aortic arch and descending thoracic aorta. Normal visualized thoracic spine. Normal visualized ribs, clavicles, and shoulders. There is no demonstrated abnormality of the visualized soft tissue structures ofthe upper abdomen. RAD/Chest PA and Lateral IMPRESSION: No evidence for acute abnormality. Reading [facility] CC: Dr. Pierce Singleton MD; No Primary Care Physician ~ Curb Supervisor: Signed [facility]06-19-2025 Discharge summary [facility] Medical Records Department [address] [place] [address] Emergency Department Summary 10/01/24 MR#: [id number] Acct: [id number] Name: ANA CRISTINA THOMAS Rep #:[id number] [...] a lump to the back of her neckfor approximately 2 weeks. She states the area [...] that and with this presents for evaluation. [facility] Medical History Diabetic ulcer of foot [...] x #100 ea 02/08/24 Unkno wn Rx / aripiprazole 5 mg tablet 5 mg PO [...] 2 cm area of induration that is well- demarcated without overlying erythema or warmth. Nodischarge or streaking. No surrounding cellulitis. The area [...] been present for roughly 2 weeks. There isno overlying erythema or warmth I feel this is more of a cystic structure than an abscess. I did elect to perform a needle aspiration of the area as documented below. This produced sebaceous materialconsistent with a sebaceous cyst. After aspiration was performed and the area is no longer swollen.At this time patient does not have signs of acute infection or meningitis I have low concern for und erlying neurologic event or subarachnoid or subdural hemorrhage [...] sebaceous material aspirated. After aspiration there is nofurther swelling noted. Patient tolerated procedure well without [...] back of your neck causing your symptoms withoutobvious signs of infection. Based on your diabetic statusthere is concern it could become infected over the next few days. If this occurs please fill the prescribed Augmentin/antibiotic that was given to you in the ER. Otherwise follow-up with your family doctor and/or Dr. Wray for reevaluation and return to the ER should you have any further concerns Print Language: Argentine Disposition Disposition: Home, Self Care What to do if you have Problems For any increased pain, shortness of breath, bleeding, nausea or vomiting, chestpain, or any unexpected problems, contact your Primary Care Provider. Call [facility] ([phone]) or report tothe closest Emergency Room. Call 911 if necessary. 10/01/24 2252 Cosigner Signature (if applicable): CC: No Primary Care Physician ~ Signed [facility]06-19-2025 Discharge summary Author Chavoadrianne Toussaint [facility] Note Date/Time October 01, 2024 10:5 2pm [facility] Medical Records Department [address] [place] [address] Emergency Department Summary 10/01/24 MR#: [id number] Acct: [id number] Name: ANA CRISTINA THOMAS Rep #:[id number] [...] that and with this presents for evaluation. [facility] Medical History Diabetic ulcer of foot [...] you have any further concerns Print Language: Argentine Disposition Disposition: Home, Self Care What to do if you have Problems For any increased pain, shortness of breath, bleeding, nausea or vomiting, chestpain, or any unexpected problems, contact your Primary Care Provider. Call [facility] ([phone]) or report to the closest Emergency Room. Call 911 if necessary. 10/01/24 9080 <Electronically signed by Chavo Toussaint DO> Cosigner Signature (if applicable): CC: No Primary Care Physician ~ Signed [facility] Work Phone: 1(473) 862-671805-20-2025 Discharge summary Author Chetna Sorensen [facility] Note Date/Time September 01, 2024 3:51p m [facility] Medical Records Department [address] [place] [address] Emergency Department Summary 09/01/24 MR#: [id number] Acct: [id number] Name: ANA CRISTINA THOMAS Rep #:[id number] [...] became homeless and was looking for social work program coordinator. She was noted to have elevated blood sugar and given some insulin. They would not able to get her to any type of treatment facility last night and she was discharged. Patient states she went to a homeless snf last night. She continues to feel unwell [...] complaints or concerns reported at this time. [facility] Medical History Diabetic ulcer of foot [...] bridge yesterday but did not tell anyone. [place] slip is filed and suicide precautions started. Patient ultimately is accepted at [facility] by Dr. Wilcox Lab Data Attestation: I [...] % (Auto) 62.1 Lymph % (Auto) 22.1 [place] % (Auto) 11.3 H Eos % (Auto) [...] (Auto) Neut % (Auto) Lymph % (Auto) [place] % (Auto) Eos % (Auto) Baso % [...] is identified in the chest. Reading Location: [facility] Rhythm Strip Rhythm Strip: Sinus Rhythm Rate: 70 Ectopy: None EKG Initial EKG: Attestation: I personally reviewed and interpreted this EKG as follows: Interpretation: Sinus Rhythm Comments: Normal sinus rhythm at a rate of 70 bpm Normal axis Normal intervals Normal ST segments Management Discussion w/another healthcare provider: bench worker/Case management Discharge Plan Triage Chief Complaint: [...] 40 unit subcut BIDCM (DME) blood-glucose meter Mis See Rx Instructions .Route Qty: 1 0RF [...] Primary [Primary Care Provider] - Print Language: Argentine Disposition Disposition: Psychiatric Hospital or Unit Discharge Location: [facility] What to do if you have Problems For any increased pain, shortness of breath, bleeding, nausea or vomiting, chestpain, or any unexpected problems, contact your Primary Care Provider. Call [facility] ([phone]) or report to the closest Emergency Room. Call 911 if necessary. 09/01/24 1551 <Electronically signed by Chetna Sorensen DO> Cosigner Signature (if applicable): CC: No Primary Care Physician ~ Signed [facility] Work Phone: [phone]) 225-889405-20-2025 Discharge summary [facility] Medical Records Department [address] [place] [address] Emergency Department Summary 09/01/24 MR#: [id number] Acct: [id number] Name: ANA CRISTINA THOMAS Rep #:[id number] [...] became homeless and was looking for social work program coordinator. She was noted to have elevated blood sugar and given some insulin. They would not able to gether to any type of treatment facility last night and she was discharged. Patient states she went to a homeless snf last night. She continues to feel unwell [...] complaints or concerns reported at this time. [facility] Medical History Diabetic ulcer of foot [...] bridge yesterday but did not tell anyone. [place] slip is filed and suicide precautions started. Patient ultimately is accepted at [facility] by Dr. Wilcox Lab Data Attestation: I [...] % (Auto) 62.1 Lymph % (Auto) 22.1 [place] % (Auto) 11.3 H Eos % (Auto) [...] (Auto) Neut % (Auto) Lymph % (Auto) [place] % (Auto) Eos % (Auto) Baso % [...] identified in the chest. Reading Location: [place] Rhythm Strip Rhythm Strip: Sinus Rhythm Rate: 70 Ectopy: None EKG Initial EKG: Attestation: I personally reviewed and interpreted this EKG as follows: Interpretation: Sinus Rhythm Comments: Normal sinus rhythm at a rate of 70 bpm Normal axis Normal intervals Normal ST segments Management Discussion w/another healthcare provider: bench worker/Case management Discharge Plan Triage Chief Complaint: [...] Primary [Primary Care Provider] - Print Language: Argentine Disposition Disposition: Psychiatric Hospital or Unit Discharge Location: [facility] What to do if you have Problems For any increased pain, shortness of breath, bleeding, nausea or vomiting, chestpain, or any unexpected problems, contact your Primary Care Provider. Call [facility] ([phone]) or report tothe closest Emergency Room. Call 911 if necessary. 09/01/24 1551 Cosigner Signature (if applicable): CC: No Primary Care Physician ~ Signed [facility]05-20-2025 Radiology Diagnostic study note [facility] Imaging Services [address] [place], [place] [id number] Chest PA and Lateral MR#: [id number] Acct: [id number] Name: ANA CRISTINA THOMAS Rep #: [id number] : 1970 F 53 From: Augustus Zheng MD PCP: Care Physician,No Primary Status: REG ER Study:Chest PA and Lateral Date of Exam: 09/01/24 Exam# [id number] Ordering Dr: Demetra Sorensen DO PROCEDURE: CHEST [...] is identified in the chest. Reading Location: [place] CC: Dr. Chetna Sorensen DO; No Primary Care Physician ~ Curb Supervisor: Signed [facility]05-19-2025 Discharge summary [facility] Medical Records Department [address] [place] [address] Emergency Department Summary 08/31/24 MR#: [id number] Acct: [id number] Name: ANA CRISTINA THOMAS Rep #:[id number] [...] department they try to get a social work program coordinator consult but she left prior to that [...] all 4 extremities. 5 out of 5 liquid floor and wall applier strength. Equal symmetrical radial pulses. No swelling [...] a urinalysis. She will be evaluated by professor of social work. Repeat exam patient is doing well at 8:15 PM. bench worker spoke to her. Trying to get [...] I would not treat at this time. bench worker cannot get the patient in any type of snf or detox facility tonight. She will be [...] % (Auto) 63.3 Lymph % (Auto) 24.2 [place] % (Auto) 8.6 Eos % (Auto) 2.7 [...] Clarity Cloudy Urine pH 6.0 Ur Specific [place] 1.015 Urine Protein 15 H Urine Glucose [...] rate of 90 no acute signs of PR or ischemia. Discharge Plan Triage Chief Complaint: General Illness ED Provider: Nate oCnrad Dx/Rx/DC Orders Clinical Impression: Hyperglycemia due to [...] Care Physician,No Primary [Primary Care Provider] - [place], INDUSTRIAL CHEMISTRY TEACHER-C [Non-Staff] - As soon as possible Activity Restrictions/Additional Instructions: Watch your blood sugars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 Dates No Primary Care Physician Primary Care Provider Active Start: September 01, 2024 End: September 01, 2024 Dr. Chetna Sorensen DO Attending Provider Active Start: September 01, 2024 End: September 01, 2024 Dr. Chetna Sorensen DO Emergency Provider Active Start: September 01, 2024 End: September 01, 2024 Team Status: Inactive Member Role/Relationship Status Dates No Primary Care Physician Primary Care Provider Active Start: October 01, 2024 End: October 01, 2024 Dr. Chavo Toussaint DO Attending Provider Active Start: October 01, 2024 End: October 01, 2024 Dr. Chavo Toussaint DO Emergency Provider Active Start: October 01, 2024 End: October 01, 2024 Team Status: Inactive Member Role/Relationship Status Dates No Primary Care Physician Primary Care Provider Active Start: October 05, 2024 End: October 06, 2024 Dr. Pierce Singleton MD Attending Provider Active Start: October 05, 2024 End: October 06, 2024 Dr. Pierce Singleton MD Emergency Provider Active Start: October 05, 2024 End: October 06, 2024 Team Status: Inactive Member Role/Relationship Status Dates No Primary Care Physician Primary Care Provider Active Start: October 13, 2024 End: October 13, 2024 Dr. Nate Conrad MD Emergency Provider Active S tart: October 13, 2024 End: October 13, 2024 Goals (unrecognized section and content) Goals may be documented in a n alternate section No data available for this sectionGoals may be documented in an alternate sectionGoals may be documented in an alternate sectionGoals may be documented in an alternate sectionGoals may be documented in an alternate sectionGoals may be documented in an alternate section No data available for this section INFORMATION SOURCE (unrecogn ized section and content) DATE CREATED AUTHOR 12/20/2023 [facility] ([place]) DATE CREATED AUTHOR AUTHOR'S ORGANIZ ATION 01/13/2024 [facility] nt DATE CREATED AUTHOR AUTHOR'S ORGANIZ ATION 03/15/2024 [facility] DATE CREATED AUTHOR AUTHOR'S ORGANIZ ATION 05/05/2024 [facility] DATE CREATED AUTHOR AUTHOR'S ORGANIZ ATION 07/20/2024 [facility] DATE CREATED AUTHOR AUTHOR'S ORGANIZ ATION 08/02/2024 [facility] DATE CREATED AUTHOR AUTHOR'S ORGANIZ ATION 08/20/2024 [facility] DATE CREATED AUTHOR AUTHOR'S ORGANIZ ATION 08/20/2024 [facility] DATE CREATED AUTHOR AUTHOR'S ORGANIZ ATION 12/05/2024 [facility] DATE CREATED AUTHOR AUTHOR'S ORA IBRAHIM 12/14/2024 [facility] Source Comments (unrecognize d section and content) In the event this informatio n is protected by the Federal Confidentiality of Alcohol and Drug Abuse Patient Records regulations: The Federal rules restrict any use of the information to criminally investigate or prosecute any alcohol or drug abuse patient.[facility] the event this information is protected by the Federal Confidentiality of Alcohol and Drug Abuse Patient Records regulations: The Federal rules restrict any use of the information to criminally investigate or prosecute any alcohol or drug abuse patient.[facility] Hospital[facility] the event this information is protected by the Federal Confidentiality of Alcohol and Drug Abuse Patient Records regulations: The Federal rules restrict any use of the information to criminally investigate or prosecute any alcohol or drug abuse patient.[facility] Hospital[facility] the event this information is protected by the Federal Confidentiality of Alcohol and Drug Abuse Patient Records regulations: The Federal rules restrict any use of the information to criminally investigate or prosecute any alcohol or drug abuse patient.[facility] Hospital[facility] the event this information is protected by the Federal Confidentiality of Alcohol and Drug Abuse Patient Records regulations: The Federal rules restrict any use of the information to criminally investigate or prosecute any alcohol or drug abuse patient.[facility] Reason for Visit (unrecogniz ed section and content) Reason Onset Date Comments Medical Clearance 01/03/2024 Pt brought in by [facility] for medical clearance to go to [facility]. Reason Comments URI Congestion, body ach [...] ONCE, 1 dose, On Sat03/24/24 at 2200 2208 (Given - Provid er: [...] BE BASED ON THE PRIMARY CLINICAL RECORDS. [facility]. provides no warranty or guarantee of the accuracy or completeness of information in this document.
[2025-01-17 16:37] VITALS: BP 115/87; PULSE 62; RESP 14; O2SAT 99
[2025-01-17 16:44] LABS: Barbiturate Urine NEGATIVE (< 200 ng/mL); Benzodiazepine Urine NEGATIVE (< 200 ng/mL); PCP Urine NEGATIVE (< 25 ng/mL); THC Urine NEGATIVE (< 50 ng/mL)
[2025-01-17] MEDS: Insulin Glargine-YFGN 100 UNIT/ML Pen 50 UNIT SC (18:22)
[2025-01-17 19:57] VITALS: BP 137/73; PULSE 94; RESP 18; TEMP 36.8; O2SAT 95
[2025-01-17 19:58] VITALS: BP 137/73; PULSE 94; RESP 18; O2SAT 95
[2025-01-17] MEDS: DOXEPIN HCL 50 MG CAPSULE PO (21:23)
== END 2025-01-17 22:05 ==
LOC: ED 16:06
PROVIDERS: Emergency Provider Surgery; Visit Provider Surgery
DX: R45.851 Suicidal ideations (principal); J44.9 Chronic obstructive pulmonary disease, unspecified; E11.65 Type 2 diabetes mellitus with hyperglycemia; E11.40 Type 2 diabetes mellitus with diabetic neuropathy, unspecified; Z79.4 Long term (current) use of insulin; F17.210 Nicotine dependence, cigarettes, uncomplicated; F41.9 Anxiety disorder, unspecified; I10 Essential (primary) hypertension; Z79.899 Other long term (current) drug therapy; Z87.898 Personal history of other specified conditions
CPT/HCPCS: 80048; 80307; 82077; 82962; 85025; 99285

== ENCOUNTER 2025-02-15 11:57 | Emergency (ER) | payer MEDICARE, MEDICAID, SELFPAY ==
[2025-02-15] VITALS (41 sets, daily range): BP systolic 92–152; BP diastolic 48–93; PULSE 99–115; RESP 16–29; TEMP 36.6–36.8; O2SAT 88–99; BMI 30.2
[2025-02-15 12:51] LABS: Hematocrit 46.7 % (37-47); Hemoglobin 15.7 g/dL (12.0-15.0); Immature Granulocytes Count 0.100 X10^3/uL (0.0-0.0); Mean Corp Hgb Conc 33.6 g/dL (32-36); Mean Corpuscular Volume 85.5 fL (81-99); Mean Platelet Vol. 10.0 fl (6.2-12.0); NRBC Flagged by Analyzer 0 % (0-5); Platelet Count 185 K/mm3 (150-450); RBC Distribution Width CV 12.9 % (11.6-14.6); RBC Distribution Width SD 39.8 fl (35.1-43.9); Red Blood Count 5.46 M/mm3 (4.2-5.4); White Blood Count 6.4 K/mm3 (4.4-11.0)
--- NOTE | 2025-02-15 13:21 | EX.ED.DYSGE1 ---
HPI History of Present Illness Chief Complaint: Overdose Informant: patient Narrative Narrative: 54-year-old female arriving to the emergency room with a chief complaint of intentional drug overdose. Patient states that she recently spent 2 weeks in a residential dual diagnosis program. She states that on returning home on Saturday she began using crack and methamphetamine Saturday and Saturday. She states that last evening she grew tired of the presumed hallucinations of her daughter being taken. She admits to both auditory and visual. She states that she is tired of living this way and she is tired and just wants to not wake up. In an effort to harm herself she took a handful of clonidine. She believes she took it in the evening hours. She denies any alcohol intake with it. She denies any other coingestions. She states that today she feels generalized fatigue. She notes dry mouth. She continues to feel suicidal. [facility] Medical History Diabetic ulcer of foot associated with diabetes mellitus due to underlying condition, with bone involvement without evidence of necrosis Substance abuse Smoker MRSA (methicillin resistant staph aureus) culture positive Hearing loss, left Cancer Anxiety Depression Bipolar disorder GERD (gastroesophageal reflux disease) Cirrhosis Hepatitis Smoker On home oxygen therapy COPD (chronic obstructive pulmonary disease) Failure of outpatient treatment Abnormal EKG Preoperative cardiovascular examination Abdominal wall abscess Hypertension Neuropathy Diabetes Sarcoidosis Home Medications ?Medication ?Instructions ?Recorded ?Last Taken ?Type pen needle, diabetic 31 gauge x #100 ea 02/08/24 Unknown Rx 1/4 blood-glucose meter #1 ea 08/29/24 Unknown Rx insulin admin supplies (Autoject 2 #1 ea 08/29/24 Unknown Rx Injection Device subcutaneous insulin pen) insulin glargine 100 unit/mL (3 50 unit subcut BIDCM blood sugar 08/29/24 Unknown History mL) subcutaneous pen (Lantus Solostar U-100 Insulin) budesonide-formoterol HFA 160 2 puff inhalation Q12H 01/17/25 Unknown History mcg-4.5 mcg/actuation aerosol inhaler clonidine HCl 0.1 mg tablet 0.1 mg PO BID 01/17/25 Unknown History doxepin 50 mg capsule 50 mg PO QHS 01/17/25 Unknown History duloxetine 60 mg capsule,delayed 60 mg PO DAILY 01/17/25 Unknown History release guanfacine 1 mg tablet,extended 1 mg PO DAILY 01/17/25 Unknown History release 24 hr hydroxyzine HCl 50 mg tablet 50 mg PO TID PRN PRN anxiety 01/17/25 Unknown History insulin aspart U-100 100 unit/mL See Protocol subcut 4X/DAY 01/17/25 Unknown History (3 mL) subcutaneous pen (Novolog FlexPen U-100 Insulin aspart) ondansetron HCl 4 mg tablet 4 mg PO Q6H PRN PRN nausea/vomiting 01/17/25 Unknown History lurasidone 80 mg tablet (Latuda) 80 mg PO DAILY 02/15/25 Unknown History pregabalin 50 mg capsule 50 mg PO TID 02/15/25 Unknown History Allergy/AdvReac Type Severity Reaction Status Date / Time aspirin AdvReac Other Verified 01/17/25 14:37 hydromorphone (From Dilaudid) AdvReac Other Verified 01/17/25 14:37 pseudoephedrine HCl (From AdvReac Other Verified 01/17/25 14:37 Sudafed) Surgical History History of cholecystectomy Hx of brain surgery Hx of appendectomy Hx of section Hx of total adrenalectomy Social History household members: none housing: homeless Smoking Status: Current every day smoker tobacco type: cigarettes quit status: considering quitting alcohol intake: never substance use type: former substance user ROS ROS ED Constitutional Constitutional ED: Denies chills or weight loss Eyes Eyes: Denies change in vision or diplopia ENT ENT ED: Reports other Details: Dry mouth ; Denies ear pain, rhinorrhea or sore throat Cardiovascular Cardiovascular: Denies chest pain, orthopnea, palpitations or racing heartbeat Respiratory/Chest Respiratory/Chest: Denies cough, dyspnea or orthopnea Gastrointestinal Gastrointestinal: Denies abdominal pain, diarrhea, nausea or vomiting Genitourinary Genitourinary ED: Denies dysuria, hematuria or urinary frequency Musculoskeletal Musculoskeletal: Denies arthralgias, back pain, myalgias or neck pain Integumentary Denies abscess or rash Neurologic Neurologic: Denies headache(s) or weakness Psychiatric Psychiatric: Reports anxiety, depression, suicidal ideation and suicidal thoughts Endocrine Endocrinology: Denies polydipsia, polyphagia or polyuria Allergic/Immunologic Allergic/Immunologic ED: Denies mouth swelling, tongue swelling or urticaria EXAM Physical Exam Const Vital Signs: 02/15/25 11:58 02/15/25 12:40 02/15/25 12:45 Temperature 98.3 F Temperature Source Oral Pulse Rate 115 H 111 H 110 H Respiratory Rate 16 21 H 19 H Blood Pressure 150/91 H 134/81 H Blood Pressure Mean 110 91 Pulse Ox 95 95 95 Oxygen Delivery Method Room Air 02/15/25 13:00 02/15/25 13:15 02/15/25 13:30 Temperature Temperature Source Pulse Rate 107 H 106 H 99 Respiratory Rate 17 21 H 16 Blood Pressure 130/64 H 126/56 H 133/66 H Blood Pressure Mean 82 76 80 Pulse Ox 95 92 99 Oxygen Delivery Method 02/15/25 13:45 02/15/25 14:00 02/15/25 14:15 Temperature Temperature Source Pulse Rate 99 Respiratory Rate 17 Blood Pressure 126/66 H 118/71 144/85 H Blood Pressure Mean 85 86 103 Pulse Ox 93 Oxygen Delivery Method Positive well nourished and well developed General Appearance ED: well developed and NAD HEENT Reports normocephalic, head/scalp atraumatic and moist mucous membranes Eyes PERRL and EOMs intact bilaterally Neck no lymphadenopathy, supple and no JVD Resp normal respiratory effort and clear to auscultation bilaterally Cardio regular rate, regular rhythm and no murmurs Rate: tachycardic GI normal to inspection, nondistended, normoactive bowel sounds and non-tender Palpation: soft Back/Spine no CVA tenderness and normal ROM Extremity normal to inspection General Extremety ED: Negative for edema General Extremity: Negative for edema Neuro oriented x3 and CN's II-XII intact bilaterally Sensorium / Orientation: alert Motor Exam: strength 5/5 throughout Psych Psych Narrative: Admits to suicidal ideation Mood & Affect: depressed, anxious and tearful Skin no rashes or lesions noted and no wounds MDM MDM MDM Narrative Medical decision making narrative: Differential diagnosis includes but not limited to suicidal ideation/Co. ingestion polysubstance use disorder schizophrenia depression liver and renal dysfunction electrolyte abnormalities Basic blood work shows elevation of her transaminases that ALT 273 AST 158 direct bilirubin 0.53 total bilirubin 0.95. Alkaline phosphatase 160. White count 6.4 hemoglobin 15.7. Salicylates and acetaminophen negative. Alcohol negative toxicology positive amphetamines and cannabinoids. Patient was observed here department. I feel that she is stable for case management/crisis evaluation. I am anticipating a transfer to psychiatric facility I filled out a pink slip. History & Record Review Discussion w/independent historian: Patient Additional record(s) reviewed:: Prior ED visit and Prior labs Lab Data Attestation: I reviewed the patient's lab results. Labs: Laboratory Results - last 24 hr 02/15/25 02/15/25 02/15/25 12:15 12:19 13:57 WBC 6.4 RBC 5.46 H Hgb 15.7 H Hct 46.7 MCV 85.5 MCH 28.8 MCHC 33.6 RDW Std Deviation 39.8 RDW Coeff of Cele 12.9 Plt Count 185 MPV 10.0 Immature Gran % (Auto) 1.600 H Neut % (Auto) 46.4 L Lymph % (Auto) 31.9 Vilas % (Auto) 16.5 H Eos % (Auto) 3.0 Baso % (Auto) 0.6 Absolute Neuts (auto) 3.0 Absolute Lymphs (auto) 2.05 Nucleated RBC % 0 Sodium 144 Potassium 3.8 Chloride 106 Carbon Dioxide 26.1 Anion Gap 12 BUN 21 H Creatinine 0.69 L Estim Creat Clear Calc 98.91 Est GFR (MDRD) Non-Af 103 BUN/Creatinine Ratio 30.4 H Glucose 334 H Calcium 9.5 Total Bilirubin 0.95 Direct Bilirubin 0.53 H AST 158 H ALT 273 H Alkaline Phosphatase 160 H Total Protein 7.2 Albumin 4.0 Globulin 3.2 Serum , Qual NEGATIVE Salicylates < 0.5 L Urine Opiates Screen U Buprenorphine Qual Ur Oxycodone Screen Urine Methadone Screen Urine Fentanyl Screen Acetaminophen < 5.0 L Ur Barbiturates Screen Ur Phencyclidine Scrn Ur Amphetamines Screen U Benzodiazepines Scrn Urine Cocaine Screen U Cannabinoids Screen Ethyl Alcohol < 10.1 POC Glucose 299 H 333 H 02/15/25 14:00 WBC RBC Hgb Hct MCV MCH MCHC RDW Std Deviation RDW Coeff of Cele Plt Count MPV Immature Gran % (Auto) Neut % (Auto) Lymph % (Auto) Vilas % (Auto) Eos % (Auto) Baso % (Auto) Absolute Neuts (auto) Absolute Lymphs (auto) Nucleated RBC % Sodium Potassium Chloride Carbon Dioxide Anion Gap BUN Creatinine Estim Creat Clear Calc Est GFR (MDRD) Non-Af BUN/Creatinine Ratio Glucose Calcium Total Bilirubin Direct Bilirubin AST ALT Alkaline Phosphatase Total Protein Albumin Globulin Serum , Qual Salicylates Urine Opiates Screen NEGATIVE U Buprenorphine Qual NEGATIVE Ur Oxycodone Screen NEGATIVE Urine Methadone Screen NEGATIVE Urine Fentanyl Screen NEGATIVE Acetaminophen Ur Barbiturates Screen NEGATIVE Ur Phencyclidine Scrn NEGATIVE Ur Amphetamines Screen PRESUMPTIVE POSITIVE U Benzodiazepines Scrn NEGATIVE Urine Cocaine Screen PRESUMPTIVE POSITIVE U Cannabinoids Screen NEGATIVE Ethyl Alcohol POC Glucose Management Discussion w/another healthcare provider: spray worker/Case management Discharge Plan Triage Chief Complaint: Overdose ED Provider: Florencio Florian Dx/Rx/DC Orders Clinical Impression: Drug overdose, intentional, Suicide attempt, Polysubstance use disorder Prescriptions: No Action (DME) pen needle, diabetic 31 gauge x 1/4 needle See Rx Instructions .Route Qty: 100 0RF Rx Instructions: As directed insulin glargine [Lantus Solostar U-100 Insulin] 100 unit/mL (3 mL) insulin pen 50 unit subcut BIDCM (DME) blood-glucose meter Misc See Rx Instructions .Route Qty: 1 0RF Rx Instructions: As directed (DME) Autoject 2 Injection Device Insulin Pen See Rx Instructions .Route Qty: 1 0RF Rx Instructions: As directed lurasidone [Latuda] 80 mg tablet 80 mg PO DAILY Rx Instructions: must administer with food (at least 350 calories) pregabalin 50 mg capsule 50 mg PO TID doxepin 50 mg capsule 50 mg PO QHS clonidine HCl 0.1 mg tablet 0.1 mg PO BID budesonide-formoterol 160-4.5 mcg/actuation HFA aerosol inhaler 2 puff INHALATION Q12H ondansetron HCl 4 mg tablet 4 mg PO Q6H PRN PRN (Reason: nausea/vomiting) hydroxyzine HCl 50 mg tablet 50 mg PO TID PRN PRN (Reason: anxiety) insulin aspart U-100 [Novolog FlexPen U-100 Insulin] 100 unit/mL (3 mL) insulin pen See Protocol subcut 4X/DAY Protocol: 6. Sliding Scale Insulin Custom Condition: mg/dl range Dose/Route: Number of Units Protocol Text: Custom Sliding Scale duloxetine 60 mg capsule,delayed release(DR/EC) 60 mg PO DAILY guanfacine 1 mg tablet extended release 24 hr 1 mg PO DAILY Primary Care Provider: Care Physician,No Primary Referrals: Care Physician,No Primary [Primary Care Provider, Medical] Print Language: Bulgarian Disposition Disposition: Psychiatric Hospital or Unit
[2025-02-15 13:53] LABS: Alcohol, Blood (Medical)-Serum < 10.1 mg/dL (<=10.0)
[2025-02-15 13:57] LABS: AST(SGOT) 158 U/L (<=31); Alanine Aminotransfer ALT/SGPT 273 U/L (<=34); Albumin, Serum 4.0 g/dL (3.5-5.0); Alkaline Phosphatase 160 U/L (35-104); Anion Gap 12 (5-15); BUN 21 mg/dL (4-19); BUN/Creat Ratio 30.4 RATIO (10-20); Bilirubin, Direct 0.53 mg/dL (0.00-0.30); Calcium,Total 9.5 mg/dL (7.6-11.0); Carbon Dioxide 26.1 mmol/L (21.0-32.0); Chloride 106 mmol/L (98-108); Estimated Creatinine Clearance 98.91 ml/min (50-250); Globulin 3.2 g/dL (2.2-4.2); Glucose 334 mg/dL (70-99); Potassium 3.8 mmol/L (3.3-5.1)
[2025-02-15 14:16] LABS: Internal QC Validated? YES +Cl - CLEAR BKGD; Pregnancy, Serum, hCG Quali. NEGATIVE Negative; Record Kit Lot#, Serum Preg. 980607
[2025-02-15 14:24] LABS: Barbiturate Urine NEGATIVE (< 200 ng/mL); Benzodiazepine Urine NEGATIVE (< 200 ng/mL); PCP Urine NEGATIVE (< 25 ng/mL); THC Urine NEGATIVE (< 50 ng/mL)
[2025-02-15] MEDS: hydrOXYzine PAM 25 MG Capsule 50 MG PO (14:30)
[2025-02-15] MEDS: Nicotine (PBKC) 7 MG Patch TD (14:47)
[2025-02-15 15:05] LABS: Acetaminophen (Tylenol) Level < 5.0 ug/mL (8.0-19.0); Salicylate < 0.5 mg/dL (2.8-20.0)
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
--- NOTE | 2025-02-15 19:01 | CM.ED ---
Social Work Patient was denied at [facility] due to no beds available. Referral sent to [facility]. YESI Hodge, FURNACE REPAIRER
--- NOTE | 2025-02-15 20:22 | CM.ED ---
Addendum entered by Sharonda Navarro 02/15/25 20:25: Referral at [facility] cancelled due to acceptance at [facility]. YESI Hodge, EDWARD Original Note: Social Work Patient was accepted at [facility]. Accepting physician is Dr. Miller, N2N [phone]. Patient will be going to [address] [facility] slip faxed. YESI Hodge, EDWARD
[2025-02-15] MEDS: Insulin Glargine-YFGN 100 UNIT/ML Pen 50 UNIT SC (21:45)
[2025-02-15] MEDS: DOXEPIN HCL 50 MG CAPSULE PO (21:48)
== END 2025-02-15 23:25 ==
PROVIDERS: Emergency Provider Emergency Medicine; Visit Provider Emergency Medicine
DX: T46.5X2A Poisoning by other antihypertensive drugs, intentional self-harm, initial encounter (principal); F19.99 Other psychoactive substance use, unspecified with unspecified psychoactive substance-induced disorder; J44.9 Chronic obstructive pulmonary disease, unspecified; E11.9 Type 2 diabetes mellitus without complications; F17.210 Nicotine dependence, cigarettes, uncomplicated; I10 Essential (primary) hypertension; F41.9 Anxiety disorder, unspecified; F32.A Depression, unspecified; R68.2 Dry mouth, unspecified; R53.83 Other fatigue
CPT/HCPCS: 80048; 80076; 80143; 80179; 80307; 82077; 82962; 84703; 85025; 99285; A4216